=== PATIENT | female | born 1950 | race Caucasian/White ===

== ENCOUNTER 2020-04-13 12:26 | Observation (INO) | payer OTHER ==
--- OUTSIDE RECORDS SUMMARY | 2020-04-13 12:30 | XMS REPORT | Clinical Summary ---
:1950 Author Organization [facility] Address [address] [place] [address] Care Team Providers Name Role Phone Shabana Primary Care Provider Allergies No Known Active Allergies Medications Medication Sig Dispensed Refills Start Date End Date Status isosorbide Take 60 mg by mouth 0 Active mononitrate (IMDUR) every morning. 60 MG 24 hr tablet metoprolol tartrate Take 100 mg by 0 Active (LOPRESSOR) 100 mg mouth 2 (two) times tablet a day. furosemide (LASIX) 40 Take 80 mg by mouth 0 Active mg tablet 2 (two) times a day. levalbuterol Take 3 mL (1.25 mg 72 mL 2 09/27/2017 Active (XOPENEX) 1.25 mg/3 total) by mL nebulizer solution nebulization every 8 (eight) hours as needed for wheezing. digOXIN (LANOXIN) 125 Take 125 mcg by 0 Active mcg tablet mouth every other day. clonIDINE (CATAPRES) Take 0.1 mg by 0 Active 0.1 MG tablet mouth nightly. triamcinolone Apply 1 application 45 g 0 12/07/2017 Active (KENALOG) 0.1 % cream topically 2 (two) times a day. Under breast and between legs Additional Information Patient taking differently: 1 application Topical PRN, rash, Under breast and between legs, Reported on 03/28/2019 hydrALAZINE Take 100 mg by 0 Act eveline (APRESOLINE) 100 MG mouth 2 (two) tablet times a day with meals. calcitriol Take 1 capsule 90 capsule 0 06/07/19 Act eveline (ROCALTROL) 0.25 MCG by mouth every 19 capsule morning pramipexole Take 1 mg by 0 Activ e (MIRAPEX) 1 MG mouth nightly. tablet apixaban (ELIQUIS) Take 2.5 mg by 0 Active 2.5 mg tablet mouth 2 (two) times a day. insulin glulisine Inject 10 Units 0 Active (APIDRA SOLOSTAR under the skin 3 U-100 INSULIN SUBQ) (three) times a day with meals. potassium chloride Take 10 mEq by 0 Active (K-DUR) 10 MEQ CR mouth 2 (two) tablet times a day. cholecalciferol, Take 5,000 Units 0 Active vitamin D3, 1,000 by mouth daily. unit tablet melatonin 10 mg Take 10 mg by 0 Active capsule mouth daily. benzonatate Take 200 mg by 0 Act eveline (TESSALON) 100 MG mouth 3 (three) capsule times a day as needed for cough. fluticasone 2 sprays by Each 0 A ctive propionate (FLONASE) Nare route 50 mcg/actuation daily. nasal spray aspirin 81 mg Chew 1 tablet 30 tablet 0 04/07/20 05/07/20 Ac tive chewable tablet (81 mg total) 20 20 daily for 30 days. cholecalciferol, Take 5,000 Units 0 Discontinued vitamin D3, (VITAMIN by mouth every 19 D3) 1,000 unit morning. tablet melatonin 3 mg Take 3 mg by 0 04/24/20 Di scontinued tablet mouth nightly. 19 insulin degludec Inject 40 Units 0 0 Discontinued (TRESIBA U-100 under the skin 20 (Reorder) INSULIN) 100 unit/mL every morning. solution insulin degludec Inject 40 Units 0 0 Discontinued (TRESIBA U-100 under the skin 20 INSULIN SUBQ) every evening. potassium 99 mg Take by mouth 2 0 02/18/20 Discontinued (Stop tablet (two) times a 20 Taking at Discharge) day. doxycycline Take 100 mg by 0 07/04/19 07/14/19 Exp ired (MONODOX) 100 MG mouth daily. For 20 20 capsule 10 days- 5 caps left insulin degludec Inject 40 Units 1 vial 0 10/26/19 0 (Tresiba U-100 under the skin 20 20 Insulin) 100 unit/mL every evening solution for 30 days. insulin degludec Inject 40 Units 1 vial 0 10/26/19 0 (Tresiba U-100 under the skin 20 20 Insulin) 100 unit/mL every morning solution for 30 days. traMADoL (ULTRAM) 50 Take 1 tablet 20 tablet 0 01/18/2001/27 mg (50 mg total) by 20 20 tabletIndications: mouth every 6 acute pain (six) hours as needed for moderate pain for up to 10 days .acute pain. doxycycline Take 1 tablet 14 tablet 0 02/18/20 02/25/20 Expi red (VIBRA-TABS) 100 MG (100 mg total) 20 20 tablet by mouth 2 (two) times a day for 7 days. Active Problems Patient Care Coordination Note Dr. Tati Mattson Problem Noted Date Chest pain 04/06/2020 Chest pain at rest 04/05/2020 Elevated troponin 04/05/2020 Occlusion of left subclavian vein 03/25/2020 Complication of vascular access for dialysis 0 Dehydration 10/26/2019 Hypoglycemia 10/26/2019 Edema of left upper extremity 07/12/2019 Disorder of cardiac pacemaker system 07/10/2019 Anemia 07/10/2019 ESRD (end stage renal disease) 07/10/2019 Acute on chronic congestive heart failure 07/10/2019 AV fistula thrombosis, initial encounter 03/29/2019 Left-sided chest pain 03/27/2019 Altered mental status 03/04/2019 Right leg pain 01/28/2019 Hypokalemia 01/28/2019 Hypokalemia 09/16/2018 Acute renal failure 04/03/2018 Hypoglycemia 03/15/2018 Primary osteoarthritis of right knee 04/10/2017 Chronic pain of right knee 03/16/2017 AVN (avascular necrosis of bone) 03/16/2017 Swelling of right knee joint 03/16/2017 Knee instability, right 03/16/2017 Pyogenic arthritis of left shoulder region 02/11/2017 Weakness 09/30/2016 Atherosclerosis of [place] coronary artery of [place] he art without angina 08/16/2016 pectoris Type 2 diabetes mellitus with diabetic neuropathy 07/21 Chronic kidney disease 08/16/2016 Essential hypertension 08/16/2016 Mixed hyperlipidemia 08/16/2016 RLS (restless legs syndrome) 08/16/2016 Diverticulosis of large intestine without hemorrhage 0 08/16/2016 Status cardiac pacemaker 08/16/2016 Congestive heart failure 08/16/2016 Primary insomnia 08/16/2016 ART (obstructive sleep apnea) 08/16/2016 Encounters Date Type Specialty Care Team Description 04/06/2020 Orders Only Procedural [facility] 04/05/2020 - Hospital Encounter General Internal Jared Vásquez, Chest pain at rest (Primary Dx); 04/06/2020 Medicine Elevated troponin; Tati Osuna, Acute renal failure superimposed on chronic kidney disease, unspecified CKD stage, unspecified acute renal failure type ([facility]); Type 2 diabetes mellitus with diabetic neuropathy, unspecified whether terminal block assembler insulin use ([facility]); Stage 4 chronic kidney disease ([facility]); Essential hyper tension; Mixed hyperlipi demia; Status cardiac pacemaker; ART (obstructiv e sleep apnea); Edema of left u pper extremity 03/27/2020 Patient Outreach Quality Yuko Solomon RN 03/24/2020 Anesthesia Event General Surgery Nisa Barton, Bill Babcock 03/24/2020 Surgery General Surgery Ti Post, LEFT UP PER EXTREMITY ANGIOGRAM, FISTULAGRAM WIT H LIGATION OF FIS YMAIL 03/22/2020 - Hospital Encounter General Internal Maximino Rajput omplication of vascular access for dialysis, initial encounter (Primary Dx); 03/25/2020 Medicine MD Anamaria Type 2 diabetes mellitus with diabetic n europathy, unspecified whether terminal block assembler insulin use ([facility]); Tati Osuna, Stage 4 documentation analyst aldo kidney disease ([facility]); RLS (restless l egs syndrome); Status cardiac pacemaker; Edema of left u pper extremity; Complication of vascular access for dialysis, subsequent encounter; Occlusion of le ft subclavian vein ([facility]); ART (obstructiv e sleep apnea) 03/22/2020 Travel 02/27/2020 Hospital Encounter Procedural Mary Higuera Pers istent left SVC (superior vena cava); Cardiology Upper extremity pain; Left upper extr emity swelling 02/27/2020 Travel 02/27/2020 Transcribe Orders Access Mary Higuera Persi stent left SVC (superior vena cava) (Primary Dx); Upper extremity pain; Left upper extr emity swelling 02/17/2020 - Emergency General Internal Atiya Maximino Hypogly cemia (Primary Dx); 02/18/2020 Medicine MD Anamaria Weakness; Tati Osuna, Lower extrem ity edema; Edema of upper extremity; Uncontrolled ty pe 2 diabetes mellitus with hypoglycemia without coma (HCC); Diarrhea, unspe cified type; Cellulitis of l eft upper extremity; Type 2 diabetes mellitus with diabetic neuropathy, unspecified whether shelter insulin use (HCC); Stage 4 chronic kidney disease (HCC); Essential hyper tension; RLS (restless l egs syndrome); Status cardiac pacemaker; ART (obstructiv e sleep apnea); Arm edema 02/17/2020 Travel 01/17/2020 - Emergency Emergency Medicine Yobani Stephens Acute hiram n of right knee (Primary Dx); 01/18/2020 MD Oli Arthritis of k nee 10/28/2019 Patient Outreach Quality Carol Spencer RN 10/23/2019 - Hospital Encounter General Internal Wayne Banerjee MD Altered mental status, unspecified alter ed mental status type (Primary Dx); 10/26/2019 Medicine Tati Osuna, Dehydration; Chronic kidney disease, unspecified CKD stage; Hypoglycemia; Type 2 diabetes mellitus with diabetic neuropathy, unspecified whether shelter insulin use ([facility]); Stage 4 chronic kidney disease (HCC); Transient alter ation of awareness; Hypokalemia 10/23/2019 Travel 08/05/2019 Hospital Encounter Radiology Mohsen Melton Encoun ter for screening mammogram Shabana for malignant Zulema, DO neoplasm of yaniv ast 08/05/2019 Travel 07/10/2019 - Hospital Encounter General Internal Carl Altamirano Disorder of cardiac pacemaker system, initial encounter (Primary Dx); 07/12/2019 Medicine MD Stephen Acute on chronic congestive heart failur e, unspecified heart failure type (HCC); Tati Osuna, ESRD (end st age renal disease) ([facility]); Anemia, unspeci fied type; Type 2 diabetes mellitus with diabetic neuropathy, unspecified whether terminal block assembler insulin use ([facility]); Essential hyper tension 07/09/2019 Transcribe Orders Access Mohsen Melton Encount er for screening mammo gram for malignant neoplasm of yaniv ast (Primary Dx) 06/03/2019 Refill Family Medicine Anirudh Fraser MD 04/25/2019 Surgery General Surgery Nick Sims PHACOEMUL Connor MOSQUEDA MD CATARACT, WITH IOL IMPLANTATION LE FT EYE 04/25/2019 Anesthesia Event General Surgery Roula Galvan MD Mitchell, Mena Rae, MD 04/25/2019 Hospital Encounter General Surgery Nick Sims MD after 04/13/2019 Immunizations Name Administration Dates Next Due FLUCELVAX QUAD PF 03/05/2019 FLUZONE HIGH-DOSE PF 03/09/2017 Influenza Trivalent 05/21/2016 Pneumococcal Conjugate 05/21/2013 Tdap 05/21/2013 Surgical History Surgery Date Site/Laterality Comments CARPAL TUNNEL RELEASE Bilateral COLONOSCOPY 05/22/2012 - 05/21/2013 ORTHOPEDIC SURGERY Left ankle fusion CARDIAC PACEMAKER PLACEMENT twic e BACK SURGERY TOE SURGERY Right ANKLE FUSION Left HYSTERECTOMY OTHER SURGICAL HISTORY clavical bone removed due to staph inf ection CARDIAC CATHETERIZATION 09/29/2017 N/A Procedur e: CV SELECTIVE CORONARY ANGIOGR AM; Surgeon: Mary Higuera MD; Lo cation: [facility] [employer] Plow Operator I nvasive Location; Servi ce: Cardiovascular; Laterality: N/A; CREATION, AV FISTULA 04/10/2018 Left Procedure: CREATION, AV FISTULA; Surgeo n: Ti Post MD; Location: [facility] OR; Service: Vascula r; Laterality: Left ; Medical devices from this surgery are in the Implants section . CARDIAC PACEMAKER PLACEMENT CLAVICLE SURGERY Right for staph infec tion CREATION, BYPASS, ARTERIAL, 09/28/2018 Thigh/Left Proc edure: LEFT CEPHALIC FEMORAL-POPLITEAL, USING TO INTE RNAL JUGULAR GRAFT BYPASS WITH CLAUDIO T; Surgeon: Ti Post MD; Locatio n: [facility] OR; Service: Va scular; Laterality: Left ; Medical devices from this surgery are in the Implants section . PHACOEMULSIFICATION, 10/25/2018 Eye/Right Procedure: RIGHT CATARACT, WITH IOL PHACOEMULSIFI CATION, IMPLANTATION CATARACT, WITH I OL IMPLANTATION; S urgeon: Nick Sims MD; Location: [facility] OR; Service: Ophthal mology; Laterality: Righ t; Medical devices from this surgery are in the Implants section . THROMBECTOMY, AV GRAFT, WITH 03/29/2019 Arm Upper/Left Pro cedure: THROMBECTOMY, REVISION AV GRAFT, WITH R EVISION; Surgeon: Ti Post MD; Locatio n: [facility] OR; Service: Va scular; Laterality: Left ; PHACOEMULSIFICATION, 04/25/2019 Eye/Left Procedure: CATARACT, WITH IOL PHACOEMULSIFI CATION, IMPLANTATION CATARACT, WITH I OL IMPLANTATION LEF T EYE; Surgeon: Nick Sims MD; Locatio n: [facility] OR; Service : Ophthalmology; Laterality: Left ; Medical devices from this surgery are in the Implants section . THROMBECTOMY, AV GRAFT, WITH 03/24/2020 Arm Upper/Left Pro cedure: LEFT UPPER REVISION EXTREMITY ANGIOG EMANUEL, FISTULAGRAM WITH LIGATION OF FIST AYLIN; Surgeon: Ti Post MD; Locatio n: [facility] OR; Service: Va scular; Laterality: Left ; Medical History Medical History Date Comments Abnormal Pap smear of vagina Allergic CHF (congestive heart failure) (HCC) Diabetes mellitus (HCC) GERD (gastroesophageal reflux disease) Insomnia Obesity Pacemaker Hypertension Hyperlipidemia Coronary artery disease S/P ID x 2 RLS (restless legs syndrome) Diabetic neuropathy (HCC) Chronic kidney disease COPD (chronic obstructive pulmonary disease) (HCC) staph infection Sjoegren syndrome Renal insufficiency Arrhythmia a-fib Pacemaker Cataract Myocardial infarction (HCC) x3 Sleep apnea Sleep apnea, obstructive setting 5 Low potassium syndrome Arthritis RA gets infusiona Degeneration of lumbar intervertebral disc Type 2 diabetes mellitus (HCC) A-V fistula (HCC) Family History Medical History Relation Name Comments Cancer Brother Colon cancer Brother Lung cancer Brother Brain cancer Maternal Grandmother Cancer Maternal Grandmother Cancer Mother Uterine cancer Mother Breast cancer Sister Cancer Sister Relation Name Status Comments Brother Maternal Grandmother Mother Sister Social History Tobacco Use Types Packs/Day Years Used Date Never Smoker Smokeless Tobacco: Never Used Alcohol Use Drinks/Week oz/Week Comments No Alcohol Habits Answer Date Recorded How often do you have a drink containing alcohol? Never 03/22/2020 How many drinks containing alcohol do you have on a typical Not asked day when you are drinking? How often do you have six or more drinks on one occasion? Ne hugh 03/22/2020 Sex Assigned at Date Recorded Not on file Job Start Date Occupation Industry Not on file Not on file Not on file COVID-19 Exposure Response Date Recorded In the last month, have you been in contact with No / Unsure 03/22/2020 8:19 PM EVENT PLANNER someone who was confirmed or suspected to have Coronavirus / COVID-19? Last Filed Vital Signs Vital Sign Reading Time Taken Comments Blood Pressure 125/72 04/06/2020 3:51 PM EVENT PLANNER Pulse 80 04/06/2020 3:51 PM EVENT PLANNER Temperature 36.4 C (97.6 F) 04/06/2020 3:51 PM EVENT PLANNER Respiratory Rate 19 04/06/2020 3:51 PM EVENT PLANNER Oxygen Saturation 100% 04/06/2020 3:51 PM EVENT PLANNER Inhaled Oxygen Concentration - - Weight 75.8 kg (167 lb 3.2 oz) 04/05/2020 1:30 PM EVENT PLANNER Height 162.6 cm (5' 4") 04/05/2020 1:30 PM EVENT PLANNER Body Mass Index 28.7 04/05/2020 1:30 PM EVENT PLANNER Plan of Treatment Health Maintenance Due Date Last Done Comments DIABETIC FOOT EXAM 1960 COLONOSCOPY SCREENING 1998 SHINGLES VACCINES (#1) 1998 65+ PNEUMOCOCCAL VACCINE (2 of 2 - 2013 03/10/2020, 0 02/03/2016, PPSV23) 01/05/2015, Additional history exists DIABETES: RETINAL EYE EXAM 07/04/2019 07/04/2017 BREAST CANCER SCREENING 08/04/2020 08/05/2019, 07/31/2018, 07/20/2017, Additional history exists INFLUENZA VACCINE Completed 03/10/2020, 03/05/2019, 03/09/2017, Additional history exists Implants Implanted Type Area Director Informatics Device Shelf Model / Identifier Expiration Serial / Lot Date Stent Endoprosthesis Viabahn [id number] Hepbioactive W/Rm - [id number] Coronary N/A: W L GORE 05/07/2021 [id number] / Implanted: 09/19/2018 at [facility] (Quantity not on file) Stents N/A [id number] / [id number] Lens Iol Tecnis Monofocal Zcb 21.5d - [id number] Intraocular Right: [employer] 02/17/2022 [id number] / Implanted: 10/25/2018 at [facility] (Quantity not on file) L ens Implant Eye [employer] [id number] / [id number] Lens Iol Tecnis Monofocal Zcb 22.5d - [id number] Intraocular Left: [employer] 03/22/2022 [id number] / Implanted: 04/25/2019 at [facility] (Quantity not on file) L ens Implant [employer] [id number] / [id number] Pacemaker Pacemaker Stent, Other Stent, Other Description:cardiac stent Hydrometeorology Teacher Mltpl Clip Ligaclip Ligtng 20 Clips 23.8cm Ti - [id number] Surgical Implants; ETHICON ENDO [id number] / Implanted: Qty: 2 on 04/10/2018 by Ti Post M D at [facility] Expanders; SURGERY-ED / Extenders; Surgical Wires Graft Vasclr Propaten Thn-Wl Strtch Rmvb l Ringed [id number] 6mm - [id number] - [id number] Vascular Graft N/A: Vein W L GORE 12/18/ [id number] / Implanted: Qty: 1 on 09/28/2018 by Ti Post MD at [facility]OS[facility] ITAL 022 [id number] / [id number] Pacemaker Pacemaker Procedures Procedure Name Priority Date/Time Associated Comments Diagnosis POC GLUCOSE Routine 04/06/2020 3:58 Results for this PM EVENT PLANNER procedure are i n the results section. POC GLUCOSE Routine 04/06/2020 11:50 Results for this AM EVENT PLANNER procedure are i n the results section. NM MYOCARDIAL PERFUSION Routine 04/06/2020 11:28 Results for this REST STRESS 1 DAY AM EVENT PLANNER procedure are in the results section. CV STRESS TEST NUCLEAR Routine 04/06/2020 11:28 R esults for this CARDIO AM EVENT PLANNER procedure are i n the results section. POC GLUCOSE Routine 04/06/2020 6:33 Results for this AM EVENT PLANNER procedure are i n the results section. ESTIMATED GFR Routine 04/06/2020 5:06 Results fo r this AM EVENT PL[employer]NER procedure are i n the results section. THYROID STIMULATING Routine 04/06/2020 5:06 Resu lts for this HORMONE AM EVENT PL[employer]NER procedure are i n the results section. LIPID PANEL Routine 04/06/2020 5:06 Results for this AM EVENT PLANNER procedure are i n the results section. COMPREHENSIVE METABOLIC Routine 04/06/2020 5:06 Results for this PANEL AM EVENT PLANNER procedure are i n the results section. HC COMPLETE BLD COUNT Routine 04/06/2020 5:06 Re sults for this W/AUTO DIFF AM EVENT PL[employer]NER procedure are i n the results section. POC GLUCOSE Routine 04/05/2020 9:02 Results for this PM EVENT PL[employer]NER procedure are i n the results section. TROPONIN Timed 04/05/2020 7:08 Results for this PM EVENT PLANNER procedure are i n the results section. CT HEAD WO CONTRAST STAT 04/05/2020 5:01 Resu lts for this PM EVENT PL[employer]NER procedure are i n the results section. POC GLUCOSE Routine 04/05/2020 4:13 Results for this PM EVENT PL[employer]NER procedure are i n the results section. US DUPLEX VENOUS UPPER STAT 04/05/2020 3:45 R esults for this EXTREMITY LEFT PM EVENT PL[employer]NER procedure are in the results section. DIGOXIN LEVEL Routine 04/05/2020 2:30 Results fo r this PM EVENT PL[employer]NER procedure are i n the results section. TROPONIN Timed 04/05/2020 2:30 Results for this PM EVENT PL[employer]NER procedure are i n the results section. ECG 12-LEAD Routine 04/05/2020 1:42 Results for this PM EVENT PLANNER procedure are i n the results section. TTE COMPLETE, WO Today 04/05/2020 1:11 Results for this CONTRAST, W DOPPLER PM EVENT PLANNER procedur e are in ([id number]) the results section. POC GLUCOSE Routine 04/05/2020 12:01 Results for this PM EVENT PL[employer]NER procedure are i n the results section. XR CHEST 1 VW PORTABLE STAT 04/05/2020 11:20 R esults for this AM EVENT PLANNER procedure are i n the results section. LIPASE LEVEL STAT 04/05/2020 9:40 Results for this AM EVENT PLANNER procedure are i n the results section. ESTIMATED GFR STAT 04/05/2020 9:40 Results fo r this AM EVENT PLANNER procedure are i n the results section. TROPONIN STAT 04/05/2020 9:40 Results for this AM EVENT PLANNER procedure are i n the results section. MAGNESIUM LEVEL STAT 04/05/2020 9:40 Results for this AM EVENT PLANNER procedure are i n the results section. HEPATIC FUNCTION PANEL STAT 04/05/2020 9:40 R esults for this AM EVENT PL[employer]NER procedure are i n the results section. BASIC METABOLIC PANEL STAT 04/05/2020 9:40 Re sults for this AM EVENT PLANNER procedure are i n the results section. HC COMPLETE BLD COUNT STAT 04/05/2020 9:40 Re sults for this W/AUTO DIFF AM EVENT PLANNER procedure are i n the results section. ECG ED PRELIMINARY Routine 04/05/2020 9:16 Resul ts for this INTERPRETATION AM EVENT PLANNER procedure are in the results section. ECG 12-LEAD STAT 04/05/2020 9:04 Results for this AM EVENT PLANNER procedure are i n the results section. POC GLUCOSE Routine 03/25/2020 10:41 Results for this AM EVENT PL[employer]NER procedure are i n the results section. CBC HEMOGRAM Timed 03/25/2020 5:47 Results for this AM EVENT PLANNER procedure are i n the results section. ESTIMATED GFR Routine 03/25/2020 5:47 Results fo r this AM EVENT PLANNER procedure are i n the results section. BASIC METABOLIC PANEL Routine 03/25/2020 5:47 Re sults for this AM EVENT PLANNER procedure are i n the results section. POC GLUCOSE Routine 03/25/2020 5:37 Results for this AM EVENT PLANNER procedure are i n the results section. POC GLUCOSE Routine 03/24/2020 7:50 Results for this PM EVENT PL[employer]NER procedure are i n the results section. POC GLUCOSE Routine 03/24/2020 5:22 Results for this PM EVENT PLANNER procedure are i n the results section. POC GLUCOSE Routine 03/24/2020 12:19 Results for this PM EVENT PLANNER procedure are i n the results section. POC GLUCOSE Routine 03/24/2020 10:56 Results for this AM EVENT PLANNER procedure are i n the results section. OR FL < 1 HOUR Routine 03/24/2020 9:20 Results f or this AM EVENT PLANNER procedure are i n the results section. VT AN ELECTIVE Routine 03/24/2020 8:52 Results f or this SUPRAGLOTTIC AIRWAY AM EVENT PLANNER procedur e are in the results section. THROMBECTOMY, AV GRAFT, 03/24/2020 8:12 ESRD N18.6 WITH REVISION AM EVENT PLANNER TYPE AND SCREEN Routine 03/24/2020 7:20 Results for this AM EVENT PLANNER procedure are i n the results section. PARTIAL THROMBOPLASTIN STAT 03/24/2020 6:35 R esults for this TIME (PTT) AM EVENT PLANNER procedure are i n the results section. HC COMPLETE BLD COUNT Routine 03/24/2020 6:35 Re sults for this W/AUTO DIFF AM EVENT PLANNER procedure are i n the results section. ESTIMATED GFR Routine 03/24/2020 6:30 Results fo r this AM EVENT PLANNER procedure are i n the results section. COMPREHENSIVE METABOLIC Routine 03/24/2020 6:30 Results for this PANEL AM EVENT PLANNER procedure are i n the results section. POC GLUCOSE Routine 03/24/2020 5:50 Results for this AM EVENT PLANNER procedure are i n the results section. POC GLUCOSE Routine 03/23/2020 8:01 Results for this PM EVENT PLANNER procedure are i n the results section. POC GLUCOSE Routine 03/23/2020 5:31 Results for this PM EVENT PL[employer]NER procedure are i n the results section. PARTIAL THROMBOPLASTIN Routine 03/23/2020 5:00 R esults for this TIME (PTT) PM EVENT PLANNER procedure are i n the results section. PROTHROMBIN TIME WITH Routine 03/23/2020 5:00 Re sults for this INR PM EVENT PLANNER procedure are i n the results section. POC GLUCOSE Routine 03/23/2020 11:40 Results for this AM EVENT PLANNER procedure are i n the results section. POC GLUCOSE Routine 03/23/2020 8:09 Results for this AM EVENT PLANNER procedure are i n the results section. POC GLUCOSE Routine 03/23/2020 4:52 Results for this AM EVENT PLANNER procedure are i n the results section. ESTIMATED GFR Routine 03/23/2020 4:50 Results fo r this AM EVENT PL[employer]NER procedure are i n the results section. COMPREHENSIVE METABOLIC Routine 03/23/2020 4:50 Results for this PANEL AM EVENT PLANNER procedure are i n the results section. HC COMPLETE BLD COUNT Routine 03/23/2020 4:50 Re sults for this W/AUTO DIFF AM EVENT PLANNER procedure are i n the results section. COVID-19 QUALITATIVE PCR STAT 03/22/2020 10:34 Results for this PM EVENT PL[employer]NER procedure are i n the results section. ESTIMATED GFR STAT 03/22/2020 8:40 Results fo r this PM EVENT PLANNER procedure are i n the results section. COMPREHENSIVE METABOLIC STAT 03/22/2020 8:40 Results for this PANEL PM EVENT PLANNER procedure are i n the results section. HC COMPLETE BLD COUNT STAT 03/22/2020 8:40 Re sults for this W/AUTO DIFF PM EVENT PLANNER procedure are i n the results section. VT CRITICAL CARE, E/M Routine 03/22/2020 8:08 Re sults for this 30-74 MINUTES PM EVENT PLANNER procedure are in the results section. US DUPLEX VENOUS UPPER STAT 02/27/2020 11:20 Persistent lef t Results for this EXTREMITY LEFT AM CDT SVC (superior vena procedu re are in cava) the results section. POC GLUCOSE Routine 02/18/2020 1:55 Results for this PM CDT procedure are i n the results section. GRAM STAIN Routine 02/18/2020 12:06 Results for this PM CDT procedure are i n the results section. AEROBIC CULTURE Routine 02/18/2020 12:06 Results for this PM CDT procedure are i n the results section. POC GLUCOSE Routine 02/18/2020 11:52 Results for this AM CDT procedure are i n the results section. POC GLUCOSE Routine 02/18/2020 11:21 Results for this AM CDT procedure are i n the results section. POC GLUCOSE Routine 02/18/2020 9:27 Results for this AM CDT procedure are i n the results section. ECG 12-LEAD Routine 02/18/2020 5:16 Results for this AM CDT procedure are i n the results section. TROPONIN Routine 02/18/2020 5:11 Results for this AM CDT procedure are i n the results section. ECG 12-LEAD Routine 02/18/2020 4:49 Results for this AM CDT procedure are i n the results section. ESTIMATED GFR Routine 02/18/2020 4:30 Results fo r this AM CDT procedure are i n the results section. BASIC METABOLIC PANEL Routine 02/18/2020 4:30 Re sults for this AM CDT procedure are i n the results section. POC GLUCOSE Routine 02/17/2020 8:50 Results for this PM CDT procedure are i n the results section. POC GLUCOSE Routine 02/17/2020 5:24 Results for this PM CDT procedure are i n the results section. GASTROINTESTINAL PANEL Routine 02/17/2020 4:15 R esults for this PM CDT procedure are i n the results section. COVID-19 QUALITATIVE PCR STAT 02/17/2020 3:30 Results for this PM CDT procedure are i n the results section. ECG ED PRELIMINARY Routine 02/17/2020 3:18 Resul ts for this INTERPRETATION PM CDT procedure are in the results section. XR ANKLE 3+ VW LEFT STAT 02/17/2020 3:00 Resu lts for this PM CDT procedure are i n the results section. POC GLUCOSE Routine 02/17/2020 2:27 Results for this PM CDT procedure are i n the results section. ECG 12-LEAD STAT 02/17/2020 2:24 Results for this PM CDT procedure are i n the results section. US DUPLEX VENOUS UPPER STAT 02/17/2020 2:05 R esults for this EXTREMITY LEFT PM CDT procedure are in the results section. POC GLUCOSE Routine 02/17/2020 1:44 Results for this PM CDT procedure are i n the results section. US DUPLEX VENOUS LOWER STAT 02/17/2020 1:30 R esults for this EXTREMITY LEFT PM CDT procedure are in the results section. URINALYSIS SCREEN AND STAT 02/17/2020 1:13 Re sults for this MICROSCOPY, WITH REFLEX PM CDT proc edure are in TO CULTURE the results section. URINE CULTURE STAT 02/17/2020 1:13 Results fo r this PM CDT procedure are i n the results section. ESTIMATED GFR STAT 02/17/2020 12:39 Results fo r this PM CDT procedure are i n the results section. B NATRIURETIC PEPTIDE STAT 02/17/2020 12:39 Re sults for this PM CDT procedure are i n the results section. TROPONIN STAT 02/17/2020 12:39 Results for this PM CDT procedure are i n the results section. CREATINE KINASE, TOTAL STAT 02/17/2020 12:39 R esults for this (CPK) PM CDT procedure are i n the results section. LIPASE LEVEL STAT 02/17/2020 12:39 Results for this PM CDT procedure are i n the results section. COMPREHENSIVE METABOLIC STAT 02/17/2020 12:39 Results for this PANEL PM CDT procedure are i n the results section. HC COMPLETE BLD COUNT STAT 02/17/2020 12:39 Re sults for this W/AUTO DIFF PM CDT procedure are i n the results section. XR ANKLE 3+ VW RIGHT STAT 01/18/2020 12:52 Res ults for this AM CDT procedure are i n the results section. XR KNEE 4+ VW RIGHT STAT 01/18/2020 12:52 Resu lts for this AM CDT procedure are i n the results section. POC GLUCOSE Routine 10/26/2019 11:52 Results for this AM CDT procedure are i n the results section. POC GLUCOSE Routine 10/26/2019 6:51 Results for this AM CDT procedure are i n the results section. POC GLUCOSE Routine 10/26/2019 6:08 Results for this AM CDT procedure are i n the results section. POC GLUCOSE Routine 10/25/2019 8:54 Results for this PM CDT procedure are i n the results section. POC GLUCOSE Routine 10/25/2019 5:07 Results for this PM CDT procedure are i n the results section. POC GLUCOSE Routine 10/25/2019 3:55 Results for this PM CDT procedure are i n the results section. POC GLUCOSE Routine 10/25/2019 11:20 Results for this AM CDT procedure are i n the results section. POC GLUCOSE Routine 10/25/2019 6:42 Results for this AM CDT procedure are i n the results section. POC GLUCOSE Routine 10/25/2019 5:26 Results for this AM CDT procedure are i n the results section. POC GLUCOSE Routine 10/24/2019 8:12 Results for this PM CDT procedure are i n the results section. POC GLUCOSE Routine 10/24/2019 3:19 Results for this PM CDT procedure are i n the results section. POC GLUCOSE Routine 10/24/2019 11:31 Results for this AM CDT procedure are i n the results section. TTE COMPLETE, WO Routine 10/24/2019 8:37 Results for this CONTRAST, W AGITATED AM CDT procedu re are in SALINE ([id number]) the results section. POC GLUCOSE Routine 10/24/2019 6:30 Results for this AM CDT procedure are i n the results section. POC GLUCOSE Routine 10/24/2019 6:06 Results for this AM CDT procedure are i n the results section. ESTIMATED GFR Routine 10/24/2019 5:43 Results fo r this AM CDT procedure are i n the results section. COMPREHENSIVE METABOLIC Routine 10/24/2019 5:43 Results for this PANEL AM CDT procedure are i n the results section. HC COMPLETE BLD COUNT Routine 10/24/2019 5:43 Re sults for this W/AUTO DIFF AM CDT procedure are i n the results section. LIPID PANEL Routine 10/24/2019 5:43 Results for this AM CDT procedure are i n the results section. HEMOGLOBIN A1C Routine 10/23/2019 11:05 Results f or this PM CDT procedure are i n the results section. POC GLUCOSE Routine 10/23/2019 10:50 Results for this PM CDT procedure are i n the results section. POC GLUCOSE Routine 10/23/2019 10:12 Results for this PM CDT procedure are i n the results section. TROPONIN Timed 10/23/2019 10:00 Results for this PM CDT procedure are i n the results section. LACTIC ACID LEVEL, Timed 10/23/2019 10:00 Resul ts for this SEPSIS - NOW AND REPEAT PM CDT proc edure are in 2X EVERY 3 HOURS the results section. POC GLUCOSE Routine 10/23/2019 9:43 Results for this PM CDT procedure are i n the results section. CREATINE KINASE, TOTAL STAT 10/23/2019 5:29 R esults for this (CPK) PM CDT procedure are i n the results section. ESTIMATED GFR STAT 10/23/2019 5:29 Results fo r this PM CDT procedure are i n the results section. TROPONIN STAT 10/23/2019 5:29 Results for this PM CDT procedure are i n the results section. B NATRIURETIC PEPTIDE STAT 10/23/2019 5:29 Re sults for this PM CDT procedure are i n the results section. LIPASE LEVEL STAT 10/23/2019 5:29 Results for this PM CDT procedure are i n the results section. LACTIC ACID LEVEL, STAT 10/23/2019 5:29 Resul ts for this SEPSIS - NOW AND REPEAT PM CDT proc edure are in 2X EVERY 3 HOURS the results section. MAGNESIUM LEVEL STAT 10/23/2019 5:29 Results for this PM CDT procedure are i n the results section. PHOSPHORUS LEVEL STAT 10/23/2019 5:29 Results for this PM CDT procedure are i n the results section. COMPREHENSIVE METABOLIC STAT 10/23/2019 5:29 Results for this PANEL PM CDT procedure are i n the results section. PARTIAL THROMBOPLASTIN STAT 10/23/2019 5:29 R esults for this TIME (PTT) PM CDT procedure are i n the results section. PROTHROMBIN TIME WITH STAT 10/23/2019 5:29 Re sults for this INR PM CDT procedure are i n the results section. HC COMPLETE BLD COUNT STAT 10/23/2019 5:26 Re sults for this W/AUTO DIFF PM CDT procedure are i n the results section. BLOOD CULTURE, AEROBIC & Routine 10/23/2019 5:20 Results for this ANAEROBIC PM CDT procedure are i n the results section. BLOOD CULTURE, AEROBIC & Routine 10/23/2019 5:10 Results for this ANAEROBIC PM CDT procedure are i n the results section. CT HEAD WO CONTRAST STAT 10/23/2019 4:39 Resu lts for this PM CDT procedure are i n the results section. URINALYSIS SCREEN AND STAT 10/23/2019 4:30 Re sults for this MICROSCOPY, WITH REFLEX PM CDT proc edure are in TO CULTURE the results section. URINE CULTURE STAT 10/23/2019 4:30 Results fo r this PM CDT procedure are i n the results section. XR CHEST 1 VW PORTABLE STAT 10/23/2019 4:20 R esults for this PM CDT procedure are i n the results section. ECG 12-LEAD STAT 10/23/2019 4:12 Results for this PM CDT procedure are i n the results section. POC GLUCOSE Routine 10/23/2019 4:12 Results for this PM CDT procedure are i n the results section. ECG ED PRELIMINARY Routine 10/23/2019 3:53 Resul ts for this INTERPRETATION PM CDT procedure are in the results section. MAMMO SCREENING W CAD Routine 08/05/2019 11:27 Encounter for R esults for this BILATERAL AM CDT screening procedure are i n mammogram for the results malignant neoplasm section. of breast POC GLUCOSE Routine 07/12/2019 4:07 Results for this PM [facility] procedure are i n the results section. POC GLUCOSE Routine 07/12/2019 11:15 Results for this AM [facility] procedure are i n the results section. POC GLUCOSE Routine 07/12/2019 5:20 Results for this AM [facility] procedure are i n the results section. ESTIMATED GFR Routine 07/12/2019 5:05 Results fo r this AM [facility] procedure are i n the results section. BASIC METABOLIC PANEL Routine 07/12/2019 5:05 Re sults for this AM [facility] procedure are i n the results section. POC GLUCOSE Routine 07/11/2019 8:05 Results for this PM [facility] procedure are i n the results section. POC GLUCOSE Routine 07/11/2019 3:58 Results for this PM [facility] procedure are i n the results section. POC GLUCOSE Routine 07/11/2019 11:39 Results for this AM [facility] procedure are i n the results section. TTE COMPLETE, WO Routine 07/11/2019 10:24 Results for this CONTRAST, W DOPPLER AM [facility]NER procedur e are in ([id number]) the results section. POC GLUCOSE Routine 07/11/2019 6:20 Results for this AM [facility] procedure are i n the results section. ESTIMATED GFR Routine 07/11/2019 4:40 Results fo r this AM [facility] procedure are i n the results section. COMPREHENSIVE METABOLIC Routine 07/11/2019 4:40 Results for this PANEL AM [facility] procedure are i n the results section. HC COMPLETE BLD COUNT Routine 07/11/2019 4:40 Re sults for this W/AUTO DIFF AM [facility] procedure are i n the results section. POC GLUCOSE Routine 07/10/2019 9:00 Results for this PM [facility] procedure are i n the results section. US DUPLEX VENOUS UPPER Routine 07/10/2019 6:03 R esults for this EXTREMITY LEFT PM [facility] procedure are in the results section. POC GLUCOSE Routine 07/10/2019 4:49 Results for this PM [facility] procedure are i n the results section. POC GLUCOSE Routine 07/10/2019 10:46 Results for this AM [facility] procedure are i n the results section. TROPONIN Timed 07/10/2019 6:08 Results for this AM [facility]NER procedure are i n the results section. XR CHEST 1 VW PORTABLE STAT 07/10/2019 3:54 R esults for this AM [facility] procedure are i n the results section. ESTIMATED GFR STAT 07/10/2019 3:17 Results fo r this AM [facility] procedure are i n the results section. B NATRIURETIC PEPTIDE STAT 07/10/2019 3:17 Re sults for this AM [facility]NER procedure are i n the results section. TROPONIN STAT 07/10/2019 3:17 Results for this AM EVENT [facility]NER procedure are i n the results section. COMPREHENSIVE METABOLIC STAT 07/10/2019 3:17 Results for this PANEL AM [facility] procedure are i n the results section. HC COMPLETE BLD COUNT STAT 07/10/2019 3:17 Re sults for this W/AUTO DIFF AM [facility] procedure are i n the results section. ECG ED PRELIMINARY Routine 07/10/2019 3:08 Resul ts for this INTERPRETATION AM [facility] procedure are in the results section. ECG 12-LEAD STAT 07/10/2019 3:06 Results for this AM [facility] procedure are i n the results section. PHACOEMULSIFICATION, 04/25/2019 7:15 LEFT EYE AGE CATARACT, WITH IOL AM EVENT [facility]NER RELATED CATAR ACT IMPLANTATION H25.11 POC GLUCOSE Routine 04/25/2019 6:44 Results for this AM [facility] procedure are i n the results section. after 04/13/2019 Results POC glucose (04/06/2020 3:58 PM EVENT PLANNER)Only the most recent of55 resultswithin the time period is included. Pathologist Sig nature POC glucose 118 (H) 65 - 99 mg/dL [facility] Comment: [facility] County Engineer Name: Alex Montenegro Device ID: [id number] Specimen Blood Performing Organization Address [facility] Phon e Number [facility] DEPARTMENT OF PATHOLOGY AND [address] [place] [address] GENOMIC MEDICINE [facility] [address] [place], [place] [address] [facility] Cv stress test (04/06/2020 11:28 AM EVENT PLANNER) Protocol Name OTF [facility] MUSE Time in Exercise 00:01:01 H MUSE Phase Max Systolic BP 123 [facility] MUSE Max Diastolic BP 80 [facility] MUSE Max Heart Rate 82 [facility] MUSE Max Predicted Heart 149 [facility] MUSE Rate Stress Test Waveform interpreted in [facility] MUSE Impression report associated with image study. No interpretation is provided as part of this Stress ECG report.--Electronically Signed By Trino HOLLIDAY, adam ([id number]), online content editor Daysi Chapman ([id number]) on 04/06/2020 10:31:56 AM Target HR 149.00 bpm H MUSE Specimen Narrative Performed At This result has an attachment that is no t available. Performing Organization Address [facility] Phon e Number [facility] MUSE [address] [place] [address] Nm myocardial perfusion (04/06/2020 11:28 AM EVENT PLANNER) Pathologist Sig nature Target HR 149.00 bpm HM [facility] Resting HR 80 BPM [facility] Resting BP 123/80 mmHg HM [facility] Percent HR 55.03 % HM [facility] Post Peak HR 82 bpm [facility] Specimen Narrative Performed At This result has an attachment that is no t available. Study Quality: good. [facility] The study is normal. This study result indicates a low risk of cardiac d eath, or nonfatal infarction, over the ensuing year. The defect is mild in severity, small in size, loca kenneth at the apical-lateral segment(s) of the left ventricle, predo minantly fixed. Normal left ventricular systolic function. Small mild defect in the apical lateral wall, predomin antly fixed with normal wall motion. Most likely attentuation artifact from underlying gut activity. No evidence of reversible ischemia. Normal LV function and wall motion Performing Organization Address City/[facility] Phon e Number SYNGO [address] [place] [address], Estimated GFR (04/06/2020 5:06 AM EVENT PLANNER)Only the most recent of13 resultswithin the time period is included. Estimated GFR 15 (A) mL/min/1.73 [facility] Comment: m2 [facility] Units Interpretation H[facility] PITAL G1 >=90 Normal or high G2 60-89 Mildly decreased G3a 45-59 Mildly to moderately decreas ed G3b 30-44 Moderately to severely decre ased G4 15-29 Severely decreased G5 <15 Kidney failure The eGFR was calculated using the Chronic Kidney Disea se Epidemiology Collaboration (CKD-EPI) equation. Interpretation is based on recommendations of the National Kidney Foundation-Kidney Disease Outcomes Sajan lity Initiative (NKF-KDOQI) published in 2014. Specimen Plasma Performing Organization Address City/[facility] Phon e Number [facility] DEPARTMENT OF PATHOLOGY AND [address] [place] [address] GENOMIC MEDICINE [facility] [address] [address] [place], [place] [address] [facility] CBC with platelet and differential (04/06/2020 5:06 AM EVENT PLANNER)Only the most recent of10 resultswithin the time period is included. Pathologist Sig nature WBC 9.42 4.50 - 11.00 k/uL [facility] RBC 5.03 4.20 - 5.50 m/uL [facility] HGB 13.3 12.0 - 16.0 g/dL [facility] HCT 43.9 37.0 - 47.0 % [facility] MCV 87.3 82.0 - 100.0 fL [facility] MCH 26.4 (L) 27.0 - 34.0 pg [facility] MCHC 30.3 (L) 31.0 - 37.0 g/dL [facility] RDW - SD 49.5 37.0 - 55.0 fL [facility] MPV 10.2 8.8 - 13.2 fL [facility] Platelet count 416 (H) 150 - 400 k/uL [facility] Nucleated RBC 0.00 /100 WBC [facility] Neutrophils 51.8 39.0 - 69.0 % [facility] Lymphocytes 35.6 25.0 - 45.0 % [facility] Monocytes 7.2 0.0 - 10.0 % [facility] Eosinophils 4.6 0.0 - 5.0 % [facility] Basophils 0.6 0.0 - 1.0 % [facility] Specimen Plasma Performing Organization Address City/[facility] Phon e Number [facility] DEPARTMENT OF PATHOLOGY AND [id number] [place] [address] Thyroid stimulating hormone (04/06/2020 5:06 AM EVENT PLANNER) Pathologist [facility] nature TSH 2.02 0.27 - 4.20 uIU/mL [facility] [place] Specimen Plasma Performing Organization Address [facility] Phon e Number [facility] DEPARTMENT OF PATHOLOGY AND [address] [place] [place] [id number] [place] [id number] [place] [address] Lipid panel (04/06/2020 5:06 AM EVENT PLANNER)Only the most recent of2 resultswithin the time period is included. Cholesterol 159 <200 mg/dL [facility] Triglycerides 127 <150 mg/dL [facility] HDL cholesterol 63 >40 mg/dL [facility] LDL cholesterol 75Comment: Result <100 mg/dL [place] obtained by direct [facility] LDL measurement [facility] Lipid panel [facility] interpretation Comment: [facility] Total Cholesterol (mg/dL) [facility] <200 Desirable 200-239 Borderline-high >=240 High Triglycerides (mg/dL) <150 Normal 150-199 Borderline-high 200-499 High >=500 Very high HDL Cholesterol (mg/dL) <40 Low (male) <40 Low (female) LDL Cholesterol (mg/dL) <100 Optimal 100-129 Near or above optimal 130-159 Borderline-high 160-189 High >=190 Very high Risk Catergories that modify LDL goals. Risk Catergories LDL goal (mg/d L) CHD and CHD risk equivalent <100 (10-year risk >20%) Multiple (2+) risk factors <130 (10-year risk =<20%) 0-1 risk factors <160 (<10-year risk) Defining levels of lipids in metabolic syndrome Triglycerides >=150 mg/dL HDL Cholesterol Men <40 mg /dL Women <40 mg/ dL Non-HDL cholesterol is a second target for therapy in persons with high triglycerides (>=200 mg/dL) Specimen Plasma Performing Organization Address City/State/ZIP Code Phon e Number [facility] DEPARTMENT OF PATHOLOGY AND [address] [place] [address] GENOMIC MEDICINE [facility] [address] [place] [address] [facility] Comprehensive metabolic panel (04/06/2020 5:06 AM EVENT PLANNER)Only the most recent of9 resultswithin the time period is included. Sodium 138 135 - 148 [facility] mEq/L [facility] Potassium 3.4 (L) 3.5 - 5.0 [facility] mEq/L [facility] Chloride 99 98 - 112 [facility] mEq/L [facility] CO2 29 24 - 31 mEq/L [facility] Anion gap 10@ANIO 7 - 15 mEq/L [facility] BUN 42 (H) 8 - 23 mg/dL [facility] Creatinine 3.00 (H) 0.50 - 0.90 [facility] mg/dL [facility] Glucose 84Comment: 65 - 99 mg/dL [address] Calcium 9.5 8.8 - 10.2 [facility] mg/dL [facility] Protein 7.1 6.3 - 8.3 [facility] Comment: g/dL [facility] 4.6-7.0 g/dL 1 week 4.4-7.6 g/dL 7 months-1year 5.1-7.3 g/dL 1-2 years 5.6-7.5 g/dL >3 years 6.0-8.0 g/dL 18-150 6.3-8.3 g/dL Albumin 3.3 (L) 3.5 - 5.0 [facility] g/dL [facility] A/G ratio 0.9 0.7 - 3.8 [facility] Alkaline phosphatase 127 (H) 35 - 104 U/L [facility] AST 19 10 - 35 U/L [facility] ALT 12 5 - 50 U/L [facility] Total bilirubin 0.5 0.0 - 1.2 [facility] mg/dL [facility] Specimen Plasma Performing Organization Address City/[facility] Phon e Number [facility] DEPARTMENT OF PATHOLOGY AND [address] [place] [address] GENOMIC MEDICINE [facility] [address] [place], [place] [address] HOSPITAL Troponin (04/05/2020 7:08 PM EVENT PLANNER)Only the most recent of9 resultswithin the time period is included. Troponin 0.054 (H) 0.000 - 0.040 [facility] Comment: ng/mL [facility] In patients suspected of having a myocardial infarctio n, along with all other appropriate clinical measures and actions includ ing ECG and other diagnostics as appropriate, measure Ultra TnI at 0 hrs and at 3 hrs. Myocardial infarction VERY LIKELY The 0 hr TnI level is > 0.10 ng/mL Myocardial infarction LIKELY The 0 hr TnI level is > 0.04 ng/mL and 3 hr level is i ncreased or decreased by at least 0.020 ng/mL Myocardial infarction VERY UNLIKELY Both the 0 hr and 3 hr TnI levels <= 0.04 ng/mL(within normal limits) OR 0 hr is > 0.04 ng/mL and 3 hr is increased OR decreased by less than 0.020 ng/mL Specimen Plasma Performing Organization Address City/[facility] Phon e Number [facility] DEPARTMENT OF PATHOLOGY AND [address] [place] [address] GENOMIC MEDICINE [facility] [address] [place] [place] [address] [facility] CT Head Wo Contrast (04/05/2020 5:01 PM EVENT PLANNER)Only the most recent of2 results within the time period is included. Specimen Narrative Performed At EXAMINATION: CT HEAD WO CONTRAST RADIANT CLINICAL HISTORY: Fall on eliquis N V COMPARISON: CT brain dated October 22 0 TECHNIQUE: Noncontrast enhanced images of the brain we re obtained from the skull base to the vertex. Both soft tissue and bon e reconstruction algorithms were performed. CT imaging was performed with iterative reconstruction technique and/or automate d exposure control to reduce radiation dos e. FINDINGS: The brain parenchyma has no acute lesion. The castillo-whi te matter differentiation is preserved. No evidence of acute int ra or extra-axial hemorrhage, mass, mass effect or acute territorial inf arction. There is no acute hydrocephalus. Basal cisterns a re patent. Again noted are lucencies in the white matter. These m ay represent chronic small vessel changes. There are grossly stable . There are dense calcifications in the skull base vasculature again not ed in the carotid and vertebral arteries. There is mild age-related volume loss. There is no acute intracranial trauma or hemorrhage. No acute soft tissue hematoma or lacerat ion. Paranasal sinuses shows no acute air-flu id levels. Mastoid air cells are clear. No skull fractures or a ggressive bony lesions. IMPRESSION: There are involutional changes as detailed above with no acute intracranial abnormality. No change from prior exam. [id number] Procedure Note Interface, Radiology Results Incoming - 04/05/2020 5:10 PM EVENT PLANNER EXAMINATION: CT HEAD WO CONTRAST CLINICAL HISTORY: Fall on eliquis N V COMPARISON: CT brain dated October 23, 2019 TECHNIQUE: Noncontrast enhanced images o f the brain were obtained from the skull base to the vertex. Both soft tissue and bone reconstruction algorithms were performed. CT imaging was performed with iterative reconstruction technique and/or automate d exposure control to reduce radiation dos e. FINDINGS: The brain parenchyma has no acute lesion . The castillo-white matter differentiation is preserved. No evidence of acute intra or extra-axial hemorrhage, mass, mass effect or acute territorial infarction. There is no acute hydrocephalus. Basal cisterns are patent. Again noted are lucencies in the white m atter. These may represent chronic small vessel changes. There are grossly stable. There are dense calcifications in the skull base vasculature again noted in the carotid and vertebral arteries. There is mild age-related volume loss. There is no acute intracranial trauma or hemorrhage. No acute soft tissue hematoma or lacerat ion. Paranasal sinuses shows no acute air-flu id levels. Mastoid air cells are clear. No skull f ractures or aggressive bony lesions. IMPRESSION: There are involutional changes as detail ed above with no acute intracranial abnormality. No change from prior exam. [id number] Performing Organization Address [facility]/ZIP Code Phon e Number RADIANT [address] [place] [address] duplex venous upper extremity (04/05/2020 3:45 PM EVENT PLANNER)Only the most recent of4 resultswithin the time period is included. Specimen Narrative Performed At This result has an attachment that is no t available. 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 [facility]NGO Superficial venous thrombosis of the left cephalic vei n. (Clinical correlation recommended) Performing Organization Address [facility] Phon e Number SYNGO [address] [place] [address], Digoxin level (04/05/2020 2:30 PM EVENT PLANNER) Digoxin 0.4 (L) 0.8 - 2.0 ng/mL [facility] Comment: [facility] For valid Digoxin results, at least 6 hours should remington pse between time of last dose and collection of blood. Otherwise, result may be false high. Therapeutic Range: 0.8 - 2.0 ng/mL Specimen Plasma Performing Organization Address [facility] Phon e Number HMSTJ DEPARTMENT OF PATHOLOGY AND [address] [place] [address] [place] [address] [address] [place], [place] [address] [facility] ECG 12 lead (04/05/2020 1:42 PM EVENT PLANNER)Only the most recent of7 resultswithin the time period is included. Pathologist Sig nature Ventricular rate 80 [facility] Atrial rate 80 [facility] VT interval 200 [facility] QRSD interval 100 [facility] QT interval 404 [facility] QTC interval 465 [facility] P axis 1 17 [facility] QRS axis 1 -61 [facility] T wave axis 90 [facility] MUSE EKG impression Sinus rhythm with premature ventricular complexes or fusion complexes-Left axis deviation-Left ventricular hypertrophy with repolarization abnormality-Inferior infarct , age undetermined-Anterolateral i [facility] MUSE nfarct , age undetermined-Marked ST abnormality, possible anterior subendocar dial injury-Abnormal ECG-In automated comparison with ECG of 05-APR-2020 09:04,-Sinus rhythm has replaced Electronic ventricular pacemaker- Specimen Narrative Performed At This result has an attachment that is no t available. Performing Organization Address City/State/ZIP Code Phon e Number [facility] MUSE [address] [place] [address] Transthoracic Echocardiogram Complete, (w Contrast, Strain and 3D if needed) (04/05/2020 1:11 PM EVENT PLANNER) Pathologist Sig nature Velocity Ratio (V1/V2) 0.87 m/s HM SYNGO IVS,d 0.99 cm SYNGO EF 56.48 % HM [facility] LVPWD,d 1.71 cm HM [facility] AoV Mean PG 3.10 mmHg HM [facility] AV LVOT peak gradient 4.93 mmHg [facility]GO MV valve area p 1/2 method 2.66 cm2 HM [facility] LVOT Diam,S 2.01 cm HM [facility] LVOT area 3.17 cm2 HM [facility] LVOT Vmax 1.11 m/s HM [facility] LVOT VTI 0.19 m HM [facility] AoV Peak PG 6.58 mmHg HM [facility]NGO MV stenosis pressure 1/2 time 82.68 ms SYNGO LV Vol,s A2C 41.41 mL HM [facility] LV Systolic Volume Index 22.51 mL/m2 HM [facility] LV Vol,d A2C 90.97 mL HM [facility]NGO LV Diastolic Volume Index 49.44 mL/m2 HM [facility]GO BSA 1.84 m2 HM [facility] AoV Area, Vmax 2.76 cm2 HM [facility] AoV Area, VTI 3.19 cm2 HM [facility] AoV Vmax 1.28 m/s HM [facility]NGO BSA Giraldo 1.93 m2 HM [facility]NGO BSA Haycock 1.91 m2 HM [facility] IVS/LVPW,2D 0.58 HM [facility] Left Atrium Dimension Anterior 1.23 cm HM [facility]NGO LV,d 5.05 cm HM [facility]GO LV,s 3.55 cm HM [facility] LV Vol,d A4C 103.54 ml HM SYNGO LV Vol,s A4C 54.57 ml HM [facility] RVSP (TR) 15.62 mmHg HM [facility]NGO TR Vpeak 1.25 mm/s HM [facility]NGO BMI 29.70 kg/m2 HM [facility] RA pressure 10.00 mmHg HM [facility]NGO TR pk grad 5.62 mmHg HM [facility] AoV area i VTI BSA Snyder 1.74 cm2/m2 HM [facility] MR peak grad 50.11 mmHg HM SYNGO LA Vol 4C 85.00 ml HM [facility]NGO RVSP 15.62 mmHg HM [facility] AR Press Half Time 854.12 ms HM [facility] LV SYS VOL 52.73 ml HM [facility]GO LV THOMPSON VOL 121.17 ml HM SYNGO LA diam s 4.40 cm HM [facility]NGO LA area s A4C 27.74 cm2 HM [facility]GO LA Vol MOD A4C 85.05 ml HM [facility]NGO LV SI Teich 2D 37.21 ml/m2 HM [facility]GO LV SV Teich 2D 68.44 ml HM [facility]NGO LV Vol s Teich PSAX 52.73 ml HM [facility]GO LVOT SI 33.07 ml/m2 HM [facility] AoV Cusp sep 1.87 HM [facility]GO Aortic Root 3.11 cm HM [facility] AoV Vmn 0.79 HM SYNGO AR slope 1.43 HM SYNGO Ar Vmax 4.39 HM [facility] IVS s 2D 1.25 HM [facility]NGO LA Ao Ratio Mmode 1.40 HM [facility] LV FS Cube 2D 29.69 HM SYNGO LV FS Teich 2D 29.69 HM SYNGO VT End Thompson Grad 11.03 HM SYNGO VT End Diat Des 1.66 HM [facility]NGO AR maxPG 77.04 HM SYNGO D E excurs 1.60 HM [facility]NGO E f slope 0.05 HM [facility] E prime lat 0.09 HM SYNGO E keaton sept 0.05 HM SYNGO PV acc T slope 5.20 HM [facility] PV AT 117.03 msec HM [facility]NGO CONDE BP EF 51.00 % HM [facility]GO LA VOL 2C 88.00 ml HM [facility]GO AoV VTI 0.19 m HM [facility]NGO LV EF,2D 65.24 % HM [facility]NGO LV EF,A2C 54.48 % HM [facility]NGO LV EF,A4C 47.30 % HM [facility]NGO LV EF,BP 50.57 % HM SYNGO [place],d A2C 7.05 cm HM SYNGO [place],d A4C 7.18 cm HM SYNGO [place],s A2C 6.16 cm HM SYNGO [place],s A4C 6.38 cm HM SYNGO LV SV,A2C 49.56 % HM [facility]NGO LV SV,A4C 48.97 % HM [facility]GO LV SV,BP 49.42 % HM [facility]NGO LV Vol,d BP 97.74 ml HM [facility]NGO LV Vol,s BP 48.32 nl HM SYNGO LV SI MOD BP BSA Snyder 26.87 ml/m2 HM SYNGO LV Vol Index s bpmod BSA Snyder 53.14 ml/m2 HM SYNGO PV Vmn 26.27 m/s HM SYNGO MR Vmax 4.90 m/s HM [facility]NGO LVOT Vmn 0.74 HM SYNGO Pt Size 162.56 HM [facility]NGO Pt Wt 78.47 HM SYNGO Aov area Vmn 2.98 cm2 HM SYNGO LA A_P score P -5.86 HM [facility]GO LVOT mean grad 2.58 mmHg HM [facility]NGO AoV area I VMN bsa 1.62 cm2/m2 HM [facility]NGO AR DT 3,079.47 msec HM SYNGO AR pk grad 60.68 mmHg HM SYNGO IVS pct thck PLAX 26.61 % HM SYNGO LV SI Cube 2D 45.76 ml/m2 HM SYNGO LV SV Cube 2D 84.17 ml HM SYNGO LV vol d cube 2D 129.01 ml HM SYNGO LV vol s cube 2D 44.84 ml HM SYNGO LVPW pct thck PLAX 21.97 % HM SYNGO LVPW s PLAX 2.09 cm HM SYNGO Specimen Narrative Performed At This result has an attachment that is no t available. Left ventricular systolic function is normal. HM SYNGO Left Ventricular ejection fraction is 50 - 55%. Mild mitral annular calcification. Left atrium size is severely dilated. Unable to assess diastolic filling. There is kram-[id number] mitral valve regurgitatio n. Elevated LV filling pressure. Preserved LV function and wall motion Severely dilated LA with elevated filling pressure Mild to moderate MR, mild MAC Mild AI, mild VT and TR Performing Organization Address City/State/ZIP Code Phon e Number HM SYNGO [address] [place] [address], [place] XR Chest 1 Vw Portable (04/05/2020 11:20 AM EVENT PLANNER)Only the most recent of3 results within the time period is included. Specimen Narrative Performed At EXAMINATION: XR CHEST 1 VW PORTABLE [facility] CLINICAL HISTORY: chest pain COMPARISON: October 22 IMPRESSION: 1.The cardiac silhouette is mildly enlarged. Vasculatu re is within normal limits. 2.There is no confluent infiltrate, effusion, or acute osseous pathology. 3.Cardiac pacemaker is stable. [facility]-[id number] Procedure Note Hm Interface, Radiology Results Incoming - 04/05/2020 12:10 PM EVENT PLANNER EXAMINATION: XR CHEST 1 VW PORTABLE CLINICAL HISTORY: chest pain COMPARISON: October 22 IMPRESSION: 1.The cardiac silhouette is mildly enlar ged. Vasculature is within normal limits. 2.There is no confluent infiltrate, effu rosanna, or acute osseous pathology. 3.Cardiac pacemaker is stable. [facility]-[id number] Performing Organization Address City/[facility]/ZIP Code Phon e Number RADIANT [address] [place] [address] Magnesium level (04/05/2020 9:40 AM EVENT PLANNER)Only the most recent of2 resultswithin the time period is included. Pathologist Sig nature Magnesium 2.3 1.6 - 2.4 mg/dL [facility] Specimen Plasma Performing Organization Address City/[facility]/ZIP [facility] Phon e Number [facility] DEPARTMENT OF PATHOLOGY AND [address] [place] [address] [place] [place] [id number] [place] [phone] [place] [address] Lipase level (04/05/2020 9:40 AM EVENT PLANNER)Only the most recent of3 resultswithin the time period is included. Pathologist Sig nature Lipase 44 13 - 60 U/L [facility] Specimen Plasma Performing Organization Address City/[facility]/ZIP [facility] Phon e Number [facility] DEPARTMENT OF PATHOLOGY AND [address] [place] [address] [place], [place] [id number] [place] [phone] [place] [address] Hepatic function panel (04/05/2020 9:40 AM EVENT PLANNER) Albumin 3.5 3.5 - 5.0 [facility] g/dL [facility] Total bilirubin 0.6 0.0 - 1.2 [facility] mg/dL [facility] Bilirubin direct <0.1 0.0 - 0.3 [facility] mg/dL [facility] Alkaline phosphatase 140 (H) 35 - 104 U/L [facility] Protein 7.1 6.3 - 8.3 [facility] Comment: g/dL [facility] [place] 4.6-7.0 g/dL 1 week 4.4-7.6 g/dL 7 months-1year 5.1-7.3 g/dL 1-2 years 5.6-7.5 g/dL >3 years 6.0-8.0 g/dL 18-150 6.3-8.3 g/dL ALT 13 5 - 50 U/L [facility] AST 17 10 - 35 U/L [facility] Specimen Plasma Performing Organization Address [facility] Phon e Number HMSTJ DEPARTMENT OF PATHOLOGY AND [address] [place] [address] [employer] [facility] [id number] [place] [address] Basic metabolic panel (04/05/2020 9:40 AM EVENT PLANNER)Only the most recent of4 results within the time period is included. Pathologist Sig nature Sodium 133 (L) 135 - 148 mEq/L [facility] Potassium 3.5 3.5 - 5.0 mEq/L [facility] Chloride 96 (L) 98 - 112 mEq/L [facility] CO2 28 24 - 31 mEq/L [facility] Anion gap 9@ANIO 7 - 15 mEq/L [facility] BUN 35 (H) 8 - 23 mg/dL [facility] Creatinine 2.50 (H) 0.50 - 0.90 mg/dL [facility] Glucose 304 (H) 65 - 99 mg/dL [facility] Calcium 9.8 8.8 - 10.2 mg/dL [facility] Specimen Plasma Performing Organization Address [facility] Phon e Number HMSTJ DEPARTMENT OF PATHOLOGY AND [address] [place] [address] [employer] [facility] [address] ECG ED Preliminary Interpretation - Not an Order (04/05/2020 9:16 AM EVENT PLANNER)Only the most recent of4 resultswithin the time period is included. Narrative Performed At Jared Vásquez MD 04/05/2020 10 :26 AM ECG ED Preliminary Interpretation - Not an Order Performed by: Jared Vásquez MD Authorized by: Jared Vásquez MD ECG reviewed by ED Physician in the abse nce of a drywall taper: yes Previous ECG: Previous ECG: Compared to current Comparison ECG info: 02/18/20 Similarity: No change Interpretation: Interpretation: normal Rate: ECG rate: 80 ECG rate assessment: normal Rhythm: Rhythm: paced Pacing: Capture: Complete Type of pacing: Ventricular Ectopy: Ectopy: none QRS: QRS axis: Normal QRS intervals: Normal Conduction: Conduction: normal ST segments: ST segments: Normal T waves: T waves: normal CBC hemogram (03/25/2020 5:47 AM EVENT PLANNER) Pathologist Sig nature WBC 8.67 4.50 - 11.00 k/uL [facility] RBC 4.35 4.20 - 5.50 m/uL [facility] HGB 11.7 (L) 12.0 - 16.0 g/dL [facility] HCT 37.0 37.0 - 47.0 % [facility] MCV 85.1 82.0 - 100.0 fL [facility] MCH 26.9 (L) 27.0 - 34.0 pg [facility] MCHC 31.6 31.0 - 37.0 g/dL [facility] RDW - SD 47.7 37.0 - 55.0 fL [facility] MPV 9.5 8.8 - 13.2 fL [facility] Platelet count 305 150 - 400 k/uL [facility] Nucleated RBC 0.00 /100 WBC [facility] Specimen Plasma Performing Organization Address City/State/ZIP Code Phon e Number HMSTJ DEPARTMENT OF PATHOLOGY AND [address] [place] [address] GENOMIC MEDICINE [facility] [address] [place] [address] HOSPITAL [place] < 1 Hour (03/24/2020 9:20 AM EVENT PLANNER) Specimen Narrative Performed At EXAMINATION: [place] < 1 HOUR HM RADIANT C-arm fluoroscopy was requested in OR. FLUORO TIME 4:09 IMPRESSION: Intraoperative fluoroscopic images. Radiologist was no t present during the examination. Separate operative report will be issued by the physic jayden performing the procedure. [id number] Procedure Note Hm Interface, Radiology Results Incoming - 03/24/2020 10:11 AM EVENT PLANNER EXAMINATION: [place] < 1 HOUR C-arm fluoroscopy was requested in OR. FLUORO TIME 4:09 IMPRESSION: Intraoperative fluoroscopic images. Radi ologist was not present during the examination. Separate operative report will be issued by the physician performing the procedure. [id number] Performing Organization Address City/[facility] Code Phon e Number RADIANT [address] [place] [address] Airway (03/24/2020 8:52 AM EVENT PLANNER) Narrative Performed At Bill Rey 03/24/2020 8:52 AM Airway Performed by: Bill Rey Authorized by: Nisa Barton MD Location: [place] Urgency: Elective Difficult Airway: No Anesthesiologist: Nisa Barton MD Resident/LAP WINDER/AA: Bill Rey eth Performed by: resident/LAP WINDER/AA Preoxygenated with 100% O2: Yes C-spine Precautions Maintained Throughou t: Yes Mask Ventilation: Not attempted Final Airway Type: Supraglottic airway Final LMA: Unique LMA Size: 4 Number of Attempts at Approach: 1 Type and screen (03/24/2020 7:20 AM EVENT PLANNER) Pathologist Sig nature ABO grouping O [facility] Rh type POS [facility] Antibody screen (gel) NEG [facility] Specimen Plasma Performing Organization Address City/[facility]/ZIP Code Phon e Number HMSTJ DEPARTMENT OF PATHOLOGY AND [address] [place] [address] GENOMIC MEDICINE [facility] [address] [place], [place] [address] [facility] Partial thromboplastin time, activated (03/24/2020 6:35 AM EVENT PLANNER)Only the most recent of3 resultswithin the time period is included. PTT 29.0 23.0 - 36.0 [facility] Comment: [facility] PTT therapeutic range for unfractionated heparin is HOSPITAL 61.0-112.0 seconds which corresponds to Anti-Xa 0.3-0.7 U/ml. Specimen Blood Performing Organization Address City/[facility] Phon e Number [facility] DEPARTMENT OF PATHOLOGY AND [address] [place] [address] [facility] [address] Prothrombin time with INR (03/23/2020 5:00 PM EVENT PLANNER)Only the most recent of2 resultswithin the time period is included. [facility] Prothrombin time 15.8 (H) 11.5 - 14.5 [facility] INR 1.2 [facility] Comment: [facility] International Normalized Ratio (INR) is a [facility] monitoring tool for patients who are stable on oral anticoagulant therapy. An INR of 2.0-3.0 is suggested for deep vein thrombosis/pulmonary embolism. Specimen Blood Performing Organization Address [facility] Phon e Number [facility] DEPARTMENT OF PATHOLOGY AND [address] [place] [address] [facility] [id number] [place] [address] COVID-19 qualitative PCR (03/22/2020 10:34 PM EVENT PLANNER)Only the most recent of2 resultswithin the time period is included. Pathologist [facility] Interpretation Negative results do not prec lude 2019-nCoV infection and should not be used as the sole basis for treatment or other patient management decisions. Negative results must be combined with clinical observations, patient history, and epidemiological [facility] information. [facility] COVID-19 qualitative Not-Detected Not-Detecte [facility] PCR result d [facility] COVID-19 qualitative See link below for [facility] PCR PDF Lab [facility] ReportComment: Case HOSPITAL Number: [id number] Specimen Nasopharyngeal swab Performing Organization Address City/[facility] Phon e Number [facility] DEPARTMENT OF PATHOLOGY AND [address] [place], [place] [address] [facility] [address] [place] [address] [facility] CRITICAL CARE (03/22/2020 8:08 PM EVENT PLANNER) Narrative Performed At Maximino Rajput MD 03/23/2020 1 2:07 PM Critical Care Performed by: Maximino Rajput MD Authorized by: Maximino Rajput MD Critical care provider statement: Critical care time (minutes): 33 Critical care start time: 03/22/2020 9:33 PM Critical care time was exclusive of: Separately b illable procedures and treating other patients Critical care was necessary to treat or prevent imminent or life-threatening deterioration of the fo llowing conditions: Endocrine crisis Critical care was time spent personal ly by me on the following activities: Development of treatment p dori with patient or surrogate, discussions with primary provider, evalu ation of patient's response to treatment, examination of patient, obtai alisha history from patient or surrogate, re-evaluation of patient's condition, pulse oximetry, ordering and review of radiographic studies, orde ring and review of laboratory studies and ordering and performing frank tments and interventions Avery 'yes' if you are taking over critical care for this patient from another provider.: no Aerobic culture (02/18/2020 12:06 PM CDT) [facility] Aerobic culture No growth after 3 days. [facility] IST isolate Comment: HOSPITAL Specimen Information Specimen Source: Discharge Specimen Site: Foot, left Specimen Discharge - Foot, left Performing Organization Address City/[facility] Phon e Number [facility] DEPARTMENT OF PATHOLOGY AND [address] [place] [address] [phone] [address] Gram stain (02/18/2020 12:06 PM CDT) Pathologist [facility] Gram stain isolate Few WBC's [facility] No organisms seen HOSPITAL Comment: Specimen Information Specimen Source: Discharge Specimen Site: Foot, left Specimen Discharge - Foot, left Performing Organization Address City/[facility] Phon e Number [facility] DEPARTMENT OF PATHOLOGY AND [address] [place] [address] [phone] [address] Gastrointestinal panel (02/17/2020 4:15 PM CDT) Pathologist [facility] Adenovirus 40/41 PCR Not Detected [facility] Comment: [facility] Specimen Information [facility] Specimen Source: Stool Specimen Site: Nonpreserved Astrovirus PCR Not Detected [facility] Campylobacter PCR Not Detected [facility] Clostridioides difficile Not Detected [facility] Cryptosporidium PCR Not Detected [facility] Cyclospora cayetanensis Not Detected [facility] Enteroaggregative E coli Not Detected [facility] Entamoeba histolytica Not Detected [facility] Enteroinvasive E coli Not Detected [facility] Enteropathogenic E coli Not Detected [facility] Norovirus PCR Not Detected [facility] Plesiomonas shigelloides Not Detected [facility] Rotavirus PCR Not Detected [facility] Salmonella PCR Not Detected [facility] Sapovirus PCR Not Detected [facility] Enterotoxigenic E coli Not Detected [facility] Shigatoxin producing E Not Detected [facility] coli PCR [facility] E coli O157 PCR Not Reported [facility] Vibrio PCR Not Detected [facility] Vibrio cholerae PCR Not Detected [facility] Yersinia enterocolitica Not Detected [facility] Giardia lamblia PCR Not Detected [facility] Specimen Stool - Nonpreserved Performing Organization Address City/State/ZIP Code Phon e Number [facility] DEPARTMENT OF PATHOLOGY AND [address] [place] [phone] GENOMIC MEDICINE [address] [address] XR Ankle 3+ Vw Left (02/17/2020 3:00 PM CDT) Specimen Narrative Performed At [facility] EXAMINATION: XR ANKLE 3 VW LEFT CLINICAL HISTORY: edema COMPARISON: None. IMPRESSION: 1.Extensive soft tissue swelling involves the left ank le. There are postsurgical changes with arthrodesis along the tibiot alar joint space and subtalar joint space. 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 Cortical eros ions are present along the distal fibula as well as the medial malleolu s portion of the distal tibia. 2.Extensive talonavicular and midfoot arthrosis. Small vessel atherosclerotic disease. Calcaneal spur. RM-PRARSA Procedure Note Interface, Radiology Results Incoming - 02/17/2020 3:22 PM CDT EXAMINATION: XR ANKLE 3 VW LEFT CLINICAL HISTORY: edema COMPARISON: None. IMPRESSION: 1.Extensive soft tissue swelling involve s the left ankle. There are postsurgical changes with arthrodesis along the tibiotalar joint space and subtalar joint space. 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 Cortical erosions are present along the distal fibula as well as the medial malleolus portion of the distal tibia. 2.Extensive talonavicular and midfoot ar throsis. Small vessel atherosclerotic disease. Calcaneal spur. HMRM-PRARSA Performing Organization Address City/State/ZIP Code Phon e Number [facility] [address] [place] [address] Us duplex venous lower extremity (02/17/2020 1:30 PM CDT) Specimen Narrative Performed At This result has an attachment that is no t available. Left lower extremity and right groin only venous duplex ultrasound does [facility] not show evidence of venous thrombosis in the visualiz ed veins. Valvular reflux is noted in the left distal popliteal vein. Valvular reflux is noted in the right common femoral v ein. Lymph node is noted in the left groin. Left lower extremity soft tissue edema is appreciated. Performing Organization Address City/[facility]/ZIP Code Phon e Number SYNGO [address] [place] [address], [place] Urinalysis screen and microscopy, with reflex to culture (02/17/2020 1:13 PM CDT)Only the most recent of2 resultswithin the time period is included. Specimen site Clean catch [facility] Color, UA Yellow [facility] Appearance, UA Slightly-Cloudy [facility] Specific gravity, 1.008 1.001 - 1.035 [facility] pH, UA 5.0 5.0 - 8.5 [facility] Protein, UA 1+ (A) Negative [facility] Glucose, UA Negative Negative [facility] Ketones, UA Negative Negative [facility] Bilirubin, UA Negative Negative [facility] Blood, UA Negative Negative [facility] Nitrite, UA Negative Negative [facility] Urobilinogen, UA Negative <2.0 [facility] Leukocyte esterase, Negative Negative [facility] Epithelial cells, Many Few /HPF [facility] WBC, UA 0-5 0 - 4 /HPF [facility] RBC, UA 0-5 0 - 5 /HPF [facility] Bacteria, UA Few None seen [facility] Yeast, UA None seen [facility] Yeast with None seen [facility] pseudohyphae, UA [facility] Hyaline casts, UA 3-5 /LPF [facility] Specimen Urine Performing Organization Address [facility] Phon e Number [facility] DEPARTMENT OF PATHOLOGY AND [address] [place] [address] Urine culture (02/17/2020 1:13 PM CDT)Only the most recent of2 resultswithin the time period is included. Pathologist Sig nature Urine culture SEE COMMENTComment: [facility] Bacteriuria screen [facility] negative. Specimen Urine Performing Organization Address [facility] Phon e Number [facility] DEPARTMENT OF PATHOLOGY AND [address] [place] [address] B natriuretic peptide (02/17/2020 12:39 PM CDT)Only the most recent of3 results within the time period is included. Pathologist Sig nature BNP 278 (H) 0 - 100 pg/mL [facility] Specimen Blood Performing Organization Address City/[facility] Phon e Number [facility] DEPARTMENT OF PATHOLOGY AND [address] [place] [address] Creatine kinase, total (CPK) (02/17/2020 12:39 PM CDT)Only the most recent of2 resultswithin the time period is included. Pathologist Sig nature Creatine kinase 92 26 - 192 U/L [facility] Specimen Blood Performing Organization Address City/[facility] Phon e Number [facility] DEPARTMENT OF PATHOLOGY AND [address] [place] [address] XR Ankle 3+ Vw Right (01/18/2020 12:52 AM CDT) Specimen Narrative Performed At EXAM: XR ANKLE 3 VW RIGHT [facility] CLINICAL HISTORY: right ankle pain COMPARISON: None. IMPRESSION: Moderate soft tissue swelling surrounding the ankle, n onspecific and may be posttraumatic or infectious/inflammatory. Vascular calcifications are noted. Soft tissues are otherwise normal . Background of diffuse osseous demineralization. Taking this into consideration, no radiographic evidence of acute displ aced right ankle fracture or dislocation. Ankle mortise is intact. Plan tar calcaneal spur noted. Pes planus partially visualized. [id number] Procedure Note Interface, Radiology Results Incoming - 01/18/2020 1:04 AM CDT EXAM: XR ANKLE 3 VW RIGHT CLINICAL HISTORY: right ankle pain COMPARISON: None. IMPRESSION: Moderate soft tissue swelling surroundin g the ankle, nonspecific and may be posttraumatic or infectious/inflammatory. Vascular calcifications are noted. Soft tissues are otherwise normal. Background of diffuse osseous deminerali zation. Taking this into consideration, no radiographic evidence of acute displaced right ankle fracture or dislocation. Ankle mortise is intact. Plantar calcaneal spur noted. Pes planus partially visualized. [id number] Performing Organization Address City/State/ZIP Code Phon e Number [facility] [address] [place] [address] XR Knee 4+ Vw Right (01/18/2020 12:52 AM CDT) Specimen Narrative Performed At Examination: XR KNEE 4 VW RIGHT [facility] Clinical History: right knee pain - hx o f RA Comparison: None. Findings: 4 views of the right knee are obtained. There is moder ate to severe joint space narrowing of the medial compartment of the right knee with spurring. Patella spurring is also noted. Suprapatella r joint effusion is seen. No acute fracture is seen. IMPRESSION: 1. Moderate to severe degenerative joint disease of th e right knee with suprapatellar joint effusion but no acut e bony abnormality identified. [id number] Procedure Note Interface, Radiology Results Incoming - 01/18/2020 12:58 AM CDT Examination: XR KNEE 4 VW RIGHT Clinical History: right knee pain - hx o f RA Comparison: None. Findings: 4 views of the right knee are obtained. There is moderate to severe joint space narrowing of the medial compartment of the right knee with spurring. Patella spurring is also noted. Suprapatellar joint effusion is seen. No acute fracture is seen. IMPRESSION: 1. Moderate to severe degenerative joint disease of the right knee with suprapatellar joint effusion but no acute bony abnormality identified. [id number] Performing Organization Address City/State/ZIP Code Phon e Number [facility] [address] [place] [address] Transthoracic Echocardiogram Complete, (w Contrast, Strain and 3D if needed) (10/24/2019 8:37 AM CDT) Pathologist Sig nature AoV Area, Vmax 1.87 cm2 [facility] AoV Area, VTI 1.96 cm2 [facility] AoV Mean PG 5.96 mmHg [facility] AoV Peak PG 11.87 mmHg [facility] AoV Vmax 1.72 m/s [facility] AoV VTI 0.30 m [facility] IVS,d 0.83 cm [facility] LV,d 6.14 cm [facility] LV EF,A2C 61.49 % [facility] LV EF,A4C 55.95 % [facility] LV EF,BP 56.79 % [facility] [place],d A2C 7.05 cm [facility] [place],d A4C 7.29 cm [facility] [place],s A2C 5.56 cm [facility] [place],s A4C 6.28 cm [facility] LV,s 4.54 cm [facility] LV SV,A2C 60.23 % [facility] LV SV,A4C 63.83 % [facility] LV Vol,d A2C 97.94 mL [facility] LV Vol,d A4C 114.10 ml [facility] LV Vol,d BP 106.96 ml [facility] LV Vol,s A2C 37.71 mL [facility] LV Vol,s A4C 50.27 ml [facility] LV Vol,s BP 46.22 nl [facility] LVOT Diam,S 1.98 cm [facility] LVOT Vmax 1.04 m/s [facility] LVOT VTI 0.19 m [facility] LVPWD,d 0.81 cm [facility] TR Vpeak 2.48 mm/s [facility] AR Press Half Time 395.19 ms [facility] MV E A ratio 2.93 [facility] TR pk grad 18 mmHg [facility] MR Vmax 5.07 m/s [facility] MR peak grad 95.04 mmHg [facility] E wave decelartion time 191.39 msec [facility] MV Peak A Des 0.40 m/s [facility] MV valve area p 1/2 method 5.28 cm2 [facility] MV Peak E Des 1.18 m/s [facility] MV stenosis pressure 1/2 time 41.68 ms [facility] AV LVOT peak gradient 4.35 mmHg [facility] LV SYS VOL 94.52 ml [facility] LV THOMPSON VOL 189.76 ml [facility] LV SV Teich 2D 95.24 ml [facility] LVOT SI 31.94 ml/m2 [facility] AoV Cusp sep 1.65 [facility] AoV Vmn 1.13 [facility] IVS s 2D 1.43 [facility] AR slope 2.38 [facility] Ar Vmax 3.25 [facility] LA Ao Ratio Mmode 1.79 [facility] LVOT Vmn 0.69 [facility] Pt Size 162.56 [facility] Pt Wt 81.65 [facility] Ao root annulus 3.08 cm [facility] PV AT 114.19 msec [facility] LVOT mean grad 2.20 mmHg [facility] AR DT 1,362.71 msec [facility] AR pk grad 42.13 mmHg [facility] LVPW s PLAX 1.40 cm [facility] MV Decel slope 6.18 m/s2 [facility] LA Vol MOD A4C 61.46 ml [facility] Velocity Ratio (V1/V2) 0.60 m/s [facility] EF 50.19 % [facility] E/A ratio 2.95 [facility] LVOT area 3.08 cm2 [facility] RVSP (TR) 23.42 mmHg [facility] RA pressure 5.00 mmHg [facility] LA Vol 4C 61.00 ml [facility] RVSP 23.42 mmHg [facility] LA diam s 5.50 cm [facility] Aortic Root 3.10 cm [facility] VT End Thompson Grad 3.56 [facility] VT End Diat Des 0.94 [facility] AR maxPG 42.13 [facility] D E excurs 1.30 [facility] E f slope 0.08 [facility] E prime lat 0.08 [facility] E [place] sept 0.08 [facility] PV acc T slope 5.40 [facility] CONDE BP EF 57.00 % [facility] LA VOL 2C 81.00 ml [facility] Specimen Narrative Performed At This result has an attachment that is no t available. BUBBLE STUDY PERFORMED. [facility] Left ventricular systolic function is normal. Left Ventricular ejection fraction is 50 - 55%. Left atrium size is moderately dilated. Unable to assess diastolic filling. Saline contrast study was negative for PFO Performing Organization Address City/State/ZIP Code Phon e Number [facility] [address] [place] [address], Hemoglobin A1c (10/23/2019 11:05 PM CDT) Hemoglobin A1C 9.8 (H) 4.0 - 5.6 % [facility] Comment: [place] HbA1c cutoffs for diagnosing diabetes: HO SPITAL 4.0% - 5.6% = normal 5.7% - 6.4% = increased risk for diabetes (prediabetes )9 >=6.5% = diabetes9 Goals for glycemic control (ADA 2016) < 7.0% Target for non adults with diabetes. More or less stringent targets may be appropriate for individual patients. <7.5% Target for Children and adolescents with type 1 diabetes. Specimen Blood Performing Organization Address [facility] Phon e Number [facility] DEPARTMENT OF PATHOLOGY AND [address] [place] [address] Lactic acid level, SEPSIS - Now and repeat 2x every 3 hours (10/23/2019 10:00 PM CDT)Only the most recent of2 resultswithin the time period is included. Pathologist Sig [facility] Lactic acid 1.1 0.5 - 2.2 mmol/L [facility] Specimen Blood Performing Organization Address [facility] Phon e Number [facility] DEPARTMENT OF PATHOLOGY AND [address] [place] [address] [place] [id number] [facility] Phosphorus level (10/23/2019 5:29 PM CDT) Pathologist Sig nature Phosphorus 5.3 (H) 2.4 - 4.5 mg/dL [facility] Specimen Blood Performing Organization Address [facility]/ZIP [facility] Phon e Number [facility] DEPARTMENT OF PATHOLOGY AND [address] [place] [address] [place] [id number] [facility] [id number] [place] [address] [place] [id number] [facility] Blood culture, aerobic & anaerobic (10/23/2019 5:20 PM CDT)Only the most recent of2 resultswithin the time period is included. Blood culture No growth after 5 days of incubation. HO NILO DRUZE isolate Comment: HOSPITAL Specimen Information Specimen Source: Blood Specimen Site: Antecubital, right Specimen Blood - Antecubital, right Performing Organization Address City/[facility]/ZIP [facility] Phon e Number [facility] DEPARTMENT OF PATHOLOGY AND [address] [place], [place] [address] [facility] [address] [place] [address] Mammo Screening w Cad Bilateral (08/05/2019 11:27 AM CDT) Specimen Narrative Performed At PROCEDURE: MAMMO SCREENING W CAD BILATER AL 08/05/2019 11:10 AM [facility] This patient's mammogram was interpreted with the assi stance of computer-aided detection (CAD). CLINICAL HISTORY: 68 -year-old female referred for scr eening mammogram. She has no new or current breast compl aints. FAMILY HISTORY: Family history of breast carcinoma d iagnosed in patient's sister at age 70. COMPARISON: 07/31/2018, 07/20/2017, 2016, 06/04/2015. BREAST DENSITY: There are scattered ar eas of fibroglandular density. DIGITAL SCREENING MAMMOGRAPHY FINDINGS: There are no dominant masses, suspicious microcalcific ations or unexplained architectural distortion to suggest malign liz. Cardiac device overlies the left axilla. No interval suspiciou s mammographic change. IMPRESSION: BI-RADS Category 2-Benign. RECOMMENDATION: Comparison with physical examination and annual mammography. This facility is accredited by [employer] for Mammography. A negative x-ray report should not delay biopsy if a d ominant or clinically suspicious mass is present. Not all cancers are identified by x-ray. [id number] Performing Organization Address City/State/ZIP Code Phon e Number [facility] [address] [place] [address] Echocardiogram complete w contrast and 3D if needed (07/11/2019 10:24 AM EVENT PLANNER) Pathologist Sig nature AoV Area, Vmax 1.73 cm2 [facility] AoV Area, VTI 1.91 cm2 [facility] AoV Mean PG 4.85 mmHg [facility] AoV Peak PG 8.22 mmHg [facility] AoV Vmax 1.43 m/s [facility] AoV VTI 0.22 m [facility] IVS,d 1.10 cm [facility] LV,d 4.86 cm [facility] LV EF,A2C 59.64 % [facility] LV EF,A4C 66.07 % [facility] LV EF,BP 64.79 % [facility] [place],d A2C 7.41 cm [facility] [place],d A4C 6.65 cm [facility] [place],s A2C 6.28 cm [facility] [place],s A4C 6.30 cm [facility] LV,s 3.19 cm [facility] LV SV,A2C 45.48 % [facility] LV SV,A4C 74.07 % [facility] LV Vol,d A2C 76.26 mL [facility] LV Vol,d A4C 112.10 ml [facility] LV Vol,d BP 97.19 ml [facility] LV Vol,s A2C 30.78 mL [facility] LV Vol,s A4C 38.04 ml [facility] LV Vol,s BP 34.22 nl [facility] LVOT Diam,S 1.85 cm [facility] LVOT Vmax 0.93 m/s [facility] LVOT VTI 0.16 m [facility] LVPWD,d 1.08 cm [facility] TR Vpeak 2.90 mm/s [facility] AR Press Half Time 723.19 ms [facility] TR pk grad 33.67 mmHg [facility] MR Vmax 5.49 m/s [facility] MR peak grad 90.92 mmHg [facility] MV valve area p 1/2 method 3.13 cm2 [facility] MV stenosis pressure 1/2 time 70.38 ms [facility] AV LVOT peak gradient 3.43 mmHg [facility] LV SYS VOL 40.59 ml [facility] LV THOMPSON VOL 110.66 ml HM [facility] LA area s A4C 29.78 cm2 [facility] LV SV Teich 2D 70.07 ml [facility] LVOT SI 22.69 ml/m2 [facility] AoV Cusp sep 0.95 [facility] AoV Vmn 1.05 [facility] IVS s 2D 1.71 [facility] AR slope 1.59 [facility] Ar Vmax 3.97 [facility] LA Ao Ratio Mmode 1.61 [facility] LVOT Vmn 0.63 [facility] Pt Size 162.56 [facility] Pt Wt 78.47 [facility] PV AT 85.63 msec [facility] LVOT mean grad 1.78 mmHg [facility] AR DT 2,493.75 msec [facility] AR pk grad 63.10 mmHg [facility] LVPW s PLAX 1.75 cm [facility] LA Vol MOD A4C 91.96 ml [facility] Velocity Ratio (V1/V2) 0.65 m/s [facility] EF 63.32 % [facility] LVOT area 2.69 cm2 [facility] LA Volume Index 58.15 mL/m2 [facility] RA pressure 5.00 mmHg [facility] LA Vol 4C 92.00 ml [facility] RVSP 38.67 mmHg HM [facility] LA diam s 4.90 cm [facility] Aortic Root 3.06 cm [facility] VT End Thompson Grad 6.08 [facility] VT End Diat Des 1.23 [facility] AR maxPG 63.10 [facility] D E excurs 1.40 [facility] E f slope 0.09 [facility] PV acc T slope 8.00 [facility] CONDE BP EF 65.00 % [facility] LA VOL 2C 102.00 ml [facility] Specimen Narrative Performed At This result has an attachment that is no t available. Left ventricular systolic function is normal. [facility] Left Ventricular ejection fraction is 60 - 65%. Left atrium size is moderately dilated. Unable to assess diastolic filling. Performing Organization Address City/State/ZIP Code Phon e Number [facility] [address] [place] [address], after 04/13/2019 Advance Directives For more information, please contact: [phone] Type Date Recorded Patient Risk Control Specialist Explanati on Advance Directives, Living Will 02/11/2019 11:06 AM and Medical Power of Maintenance Mechanic Code Status Date Activated Date Inactivated Comments Full Code 04/05/2020 1:30 PM 04/06/2020 11:17 PM Code Status decision reached by: Patient Full Code 03/22/2020 11:51 PM 03/25/2020 5:26 PM Code Status decision reached by: Patient Full Code 10/23/2019 9:09 PM 10/26/2019 9:48 PM Code Status decision reached by: Patient Full Code 07/10/2019 6:41 AM 07/12/2019 10:47 PM Code Status decision reached by: Patient Full Code 03/28/2019 1:24 AM 03/30/2019 10:51 PM Code Status decision reached by: Patient
--- OUTSIDE RECORDS SUMMARY | 2020-04-13 12:32 | XMS REPORT | Continuity of Care Document ---
:1950 Author Organization [facility] t Address [address] [place] [address] Dr. [address]son [address] [place] [address] Care Team Providers Name Role Phone Vanda PALOMO Primary Care Physician Pan Vásquez MD Attending Clinician Thao HOLLIDAY Attending Clinician Adela Attending Clinician Unavailable Neha PETE Attending Clinician Unavailable Anamaria Rajput MD Attending Clinician Lesley Barton MD Attending Clinician Sakshi Rey Attending Clinician Sincere HOLLIDAY, Rosario Attending Clinician Jose Tripathi MD Attending Clinician Oli Stephens MD Attending Clinician Tj PETE Attending Clinician Unavailable Chriss HOLLIDAY Attending Clinician Benjamin Melton MD Attending Clinician Vanda PALOMO Attending Clinician Stephen Altamirano MD Attending Clinician Avery Fraser MD Attending Clinician Connor Sims MD Attending Clinician Vianca Galvan MD Attending Clinician TEQWIMUAH Attending Clinician Unavailable THAO Admitting Clinician Unavailable TEQWCHARLES Admitting Clinician Unavailable Payers Payer Name Policy Type Policy Number Effective Date Expiration Date S ource [id number] [place] [id number] 00:00:00 Religious /2003-Presen tMilitary Problems Condition Condition Condition Status Onset Resolution Last Treating Co mments Source Name Details Category Date Date Treatment Clinician Date Chest pain Chest pain Disease Active 2020-1 [place] 1-16 [facility]: st 00 Chest pain Chest pain Disease Active 2020- [facility] [place] at rest at rest 1-15 Methodi 00:00: st 00 Elevated Elevated Disease Active 2020- [place] troponin troponin -15 Method i 00:00: st 00 Occlusion Occlusion Disease Active 2019- Jackie ston of left of left 04 [facility] subclavian subclavian 00:00: st vein vein 00 Complicati Complicati Disease Active 2020-1 [place] on of on of 05-22 [facility] vascular vascular 00:00: st access for access for 00 dialysis dialysis Dehydratio Dehydratio Disease Active 2020-0 [facility] n n 6-06 Methodi 00:00: st 00 Hypoglycem Hypoglycem Disease Active 2020-0 H [facility] ia ia 6-06 Methodi 00:00: st 00 Edema of Edema of Disease Active 2020-0 [place] left upper left upper 2-21 [facility] extremity extremity 00:00: st 00 Disorder Disorder Disease Active 2020-0 [place] of cardiac of cardiac 2-19 [facility] [place] pacemaker pacemaker 00:00: st system system 00 Anemia Anemia Disease Active 2020-0 [place] 2-19 [facility]i 00:00: st 00 ESRD (end ESRD (end Disease Active 2020-0 Jackie ston stage stage 2-19 [facility] renal renal 00:00: st disease) disease) 00 Acute on Acute on Disease Active 2020-0 [place] chronic chronic 2-19 [facility] congestive congestive 00:00: st heart heart 00 failure failure 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 1-08 [facility] , initial , initial 00:00: st encounter encounter 00 Left-sided Left-sided Disease Active 2019- [facility] [place] chest pain chest pain 1-06 Dc thodi 00:00: st 00 Altered Altered Disease Active 2018-05 [place] mental mental 0-14 [facility] status status 00:00: st 00 Right leg Right leg Disease Active 2019- Jackie ston pain pain 9-09 Methodi 00:00: st 00 Hypokalemi Hypokalemi Disease Active [place] a a 9 Methodi 00:00: st 00 Hypokalemi Hypokalemi Disease Active [place] a a 4- Methodi 00:00: st 00 Acute Acute Disease Active 2017-05 [place] renal renal 1-13 [facility] failure failure 00:00: st 00 Hypoglycem Hypoglycem Disease Active 2017-05 [facility] [place] ia ia 0-25 Methodi 00:00: st 00 Primary Primary Disease Active 2016-05 [place] osteoarthr osteoarthr 1-20 Me [facility] itis of itis of 00:00: st right knee right knee 00 Chronic Chronic Disease Active 2016-05 [place] pain of pain of 0-26 [facility] right knee right knee 00:00: st 00 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 [place] (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 Me [facility] necrosis necrosis 00:00: st of bone) of bone) 00 Swelling Swelling Disease Active 2016-05 [place] of right of right 0-26 Method i knee joint knee joint 00:00: st 00 Knee Knee Disease Active 2016-05 [place] instabilit instabilit 0-26 Me [facility] y, right y, right 00:00: st 00 Pyogenic Pyogenic Disease Active [place] arthritis arthritis 9-23 Meth ramiro of left of left 00:00: st shoulder shoulder 00 region region Weakness Weakness Disease Active [place] 5-12 [facility] 00:00: st 00 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 08-16 Method i viejas viejas 00:00: st coronary coronary 00 artery of artery of viejas viejas heart heart without without angina angina pectoris pectoris 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 00:00: st 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 Chronic Chronic Disease Active [place] kidney kidney - [facility] disease disease 00:00: st 00 Essential Essential Disease Active [facility] st[facility] hypertensi hypertensi 3-28 Me [facility] on on 00:00: st 00 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 3-28 Me thodi emia emia 00:00: st 00 RLS RLS Disease Active [place] (restless (restless 08-16 Meth rami[facility] legs legs 00:00: st syndrome) syndrome) 00 Diverticul Diverticul [facility]-16 [facility] large large 00:00: st intestine intestine 00 without without hemorrhage hemorrhage Status Status Disease Active [place] cardiac cardiac 08-16 [facility] pacemaker pacemaker 00:00: st 00 Congestive Congestive Disease Active [place] heart heart 08-16 [facility] failure failure 00:00: st 00 Primary Primary Disease Active [place] insomnia insomnia 08-16 Method i 00:00: st 00 ART ART Disease Active [facility] (obstructi (obstructi 08-16 Me thodi ve sleep ve sleep 00:00: st apnea) apnea) 00 Allergies, Adverse Reactions, Alerts This patient has no known allergies or adverse reactions. Family History Family Member Diagnosis Comments Start Date Stop Date Source Natural brother Cancer [facility] ethodist Natural brother Colon cancer [place] Religious Natural brother Lung cancer [place] Religious Maternal grandmother [facility] Maternal grandmother Cancer [place] Religious Natural mother Cancer [facility] thodist Natural mother Uterine cancer [place] Religious Natural sister Breast cancer [place] Religious Natural sister Cancer [facility] thodist Social History Social Habit Start Date Stop Date Quantity Comments Source History [facility] Meth odist Alcohol Std Drinks Sex Assigned At [facility] ethodist Exposure to Not sure [place] Metho dist SARS-CoV-2 (event) Tobacco use and 2020-04-05 2020-04-05 Never used [facility] ethodist exposure 00:00:00 00:00:00 Alcohol intake 2020-04-05 2020-04-05 Current [facility] thodist 00:00:00 00:00:00 non-drinker of alcohol (finding) History [facility] 2020-03-22 2020-03-22 1 [place] Meth odist Alcohol Frequency 00:00:00 00:00:00 History [facility] 2020-03-22 2020-03-22 1 [place] Meth odist Alcohol Binge 00:00:00 00:00:00 Smoking Status Start Date Stop Date Source Never smoker [place] Methodis t Medications Ordered Filled Start Stop Current Ordering Indication Dosage Frequency Signature Comments Components Source Medication Medication Date Date Medication? Clinician (SIG) Name Name aspirin 81 2020-1 2020- Yes 81mg QD Chew 1 [place] mg chewable 1-17 12-17 tablet (81 M ethodi tablet 00:00: 23:59 mg total) st 00 :00 daily for 30 days. isosorbide 2020- Yes 60mg QD Take 60 mg [place] mononitrate 1-16 by mouth Meth ramiro (IMDUR) 60 19:17: every st MG 24 hr 47 morning. tablet metoprolol 2020- Yes 100mg Q.5D Take 100 [place] tartrate 1-16 mg by Methodi (LOPRESSOR) 19:17: mouth 2 st 100 mg 47 (two) tablet times a day. furosemide 2020- Yes 80mg Q.5D Take 80 mg [place] (LASIX) 40 1-16 by mouth 2 Met hodi mg tablet 19:17: (two) st 47 times a day. digOXIN 2020- Yes 125ug Q48H Take 125 [place] (LANOXIN) 1-16 mcg by Methodi 125 mcg 19:17: mouth st tablet 47 every other day. clonIDINE 2019- Yes .1mg QD Take 0.1 [place] (CATAPRES) 1-16 mg by Methodi 0.1 MG 19:17: mouth st tablet 47 nightly. hydrALAZINE 2019- Yes 100mg Q.5D Take 100 [place] (APRESOLINE 1-16 mg by Methodi ) 100 MG 19:17: mouth 2 st tablet 47 (two) times a day with meals. pramipexole 2019- Yes 1mg QD Take 1 mg [place] (MIRAPEX) 1 -16 by mouth Meth ramiro MG tablet 19:17: nightly. st 47 apixaban 2019- Yes 2.5mg Q.5D Take 2.5 [place] (ELIQUIS) 1-16 mg by Methodi 2.5 mg 19:17: mouth 2 st tablet 47 (two) times a day. insulin 2020- Yes 10U Q.[id number] Inject 10 Dye glulisine 1-16 [id number] Units Met [facility] (APIDRA 19:17: 3D under the st SOLOSTAR 47 skin 3 U-100 (three) INSULIN times a SUBQ) day with meals. potassium 2020- Yes 10meq Q.5D Take 10 [place] chloride 1-16 mEq by Methodi (K-DUR) 10 19:17: mouth 2 st MEQ CR 47 (two) tablet times a day. cholecalcif 2019-05 Yes 5000U QD Take 5,000 Dye sophia, 1-16 Units by Methodi vitamin D3, 19:17: mouth st 1,000 unit 47 daily. tablet melatonin 2019-05 Yes 10mg QD Take 10 mg [place] 10 mg 1-16 by mouth [facility] capsule 19:17: daily. st 47 benzonatate 2019-05 Yes 200mg Q.[id number] Take 200 Dye (TESSALON) 1-16 [id number] mg by Me thodi 100 MG 19:17: 3D mouth 3 st capsule 47 (three) times a day as needed for cough. fluticasone 2019-05 Yes 2{spray QD 2 sprays Dye propionate 1-16 } by Each Method i (FLONASE) 19:17: Nare route st 50 47 daily. mcg/actuati on nasal spray potassium 2019-0 2020- No Q.5D Take by [place] 99 mg 02-17 mouth 2 Methodi tablet 15:27: 00:00 (two) st 03 :00 times a day. doxycycline 2019-0 2020- No 100mg Q.5D Take 1 [place] (VIBRA-TABS 02-17 tablet Metho di ) 100 MG 00:00: 23:59 ([address] tablet 00 :00 total) by mouth 2 (two) times a day for 7 days. traMADoL 2019- 2020- No acute pain 50mg Q6H Take 1 Dye (ULTRAM) 50 01-17- tablet (50 M ethodi mg tablet 00:00: 23:59 mg total) st 00 :00 by mouth every 6 (six) hours as needed for moderate pain for up to 10 days .acute pain. insulin 2019-0 2020- No 40U QD Inject 40 [place] degludec 6- 06-06 Units Methodi (TRESIBA 16:06: 00:[address] U-100 02 :00 skin every INSULIN) morning. 100 unit/mL solution insulin 2019-0 2020- No 40U QD Inject 40 [place] degludec 6-06 06-06 Units Methodi (TRESIBA 16:06: 00:[address] U-100 02 :00 skin every INSULIN evening. SUBQ) insulin 2019- No 40U QD Inject 40 [place] degludec 6-06 07-06 Units Methodi (Tresiba 00:00: 23:[address] U-100 00 :00 skin every Insulin) evening 100 unit/mL for 30 solution days. insulin 2019- No 40U QD Inject 40 [place] degludec 6-06 07-06 Units Methodi (Tresiba 00:00: 23:[address] U-100 00 :00 skin every Insulin) morning 100 unit/mL for 30 solution days. doxycycline 100mg QD Take 100 Dye (MONODOX) 2-13 02-23 mg by Methodi 100 MG 00:00: 23:[address] capsule 00 :00 daily. For 10 days- 5 caps left melatonin 3 2018-05 3mg QD Take 3 mg Dye mg tablet 06-25 12-04 by mouth Metho di 10:44: 00:[address] 47 :00 cholecalcif 2018-05 5000U QD Take 5,000 Dye sophia, 06-25 12-04 Units by Methodi vitamin D3, 10:42: 00:[address] (VITAMIN 57 :00 every D3) 1,000 morning. unit tablet calcitriol Yes Take 1 [place] (ROCALTROL) 1-17 capsule by Dc bc 0.25 MCG 00:00: mouth st capsule 00 every morning triamcinolo Yes 1{appli Q.5D Apply 1 Dye ne 7-19 cation} applicatio Method i (KENALOG) 00:00: n st 0.1 % cream 00 topically 2 (two) times a day. Under breast and between legs levalbutero Yes 1.25mg Q8H Take 3 mL Dye l (XOPENEX) 5-09 (1.25 mg Meth ramiro 1.25 mg/3 00:00: total) by st mL 00 nebulizati nebulizer on every 8 solution (eight) hours as needed for wheezing. Immunizations Ordered Immunization Filled Immunization Date Status Commen ts Source Name Name FLUCELVAX QUAD PF 2019-03-05 Completed Dye 00:00:00 Religious FLUZONE HIGH-DOSE PF 2017-03-09 Completed [facility] ton 00:00:00 Religious Influenza Trivalent 2016-05-21 Completed [facility] on 00:00:00 Religious Pneumococcal 2013-05-21 Completed Dye Conjugate 00:00:00 Religious Tdap 2013-05-21 Completed [facility] 00:00:00 Religious Vital Signs Vital Name Observation Time Observation Value Comments Source Systolic blood 2020-04-06 15:51:53 125 mm[Hg] Rupalto n Religious pressure Diastolic blood 2020-04-06 15:51:53 72 mm[Hg] [place] Religious pressure Heart rate 2020-04-06 15:51:53 80 /min Hardik Conroy Body temperature 2020-04-06 15:51:53 36.44 Mena [place] Religious Respiratory rate 2020-04-06 15:51:53 19 /min [place] Religious Oxygen saturation in 2020-04-06 15:51:53 100 /min Hardik Conroy Arterial blood by Pulse oximetry Body height 2020-04-05 13:30:00 162.6 cm Hardik Conroy Body weight 2020-04-05 13:30:00 75.841 kg Hardik Conroy BMI 2020-04-05 13:30:00 28.70 kg/m2 Hardik Conroy Procedures Procedure Date / Time Performing Clinician Source Performed POC GLUCOSE 2020-04-06 15:58:00 Corrine Osuna POC GLUCOSE 2020-04-06 11:50:00 Corrine Osuna CV STRESS TEST NUCLEAR 2020-04-06 11:28:47 Molly Jameson CARDIO Mega NM MYOCARDIAL PERFUSION 2020-04-06 11:28:47 Molly Jameson REST STRESS 1 DAY Mega POC GLUCOSE 2020-04-06 06:33:00 Corrine Osuna HC COMPLETE BLD COUNT 2020-04-06 05:06:00 Jared Vásquez on Religious W/AUTO DIFF COMPREHENSIVE METABOLIC 2020-04-06 05:06:00 Jared Vásquez PANEL LIPID PANEL 2020-04-06 05:06:00 Corrine Osuna THYROID STIMULATING HORMONE 2020-04-06 05:06:00 Corrine Osuna ESTIMATED GFR 2020-04-06 05:06:00 FahadJared guerra Met hodist POC GLUCOSE 2020-04-05 21:02:00 Corrine Osuna Meth odist TROPONIN 2020-04-05 19:08:[address] Met hodist [address] HEAD WO CONTRAST 2020-04-05 17:01:39 Molly Jameson Religious Mega POC GLUCOSE 2020-04-05 16:13:00 Corrine Osuna Meth odist US DUPLEX VENOUS UPPER 2020-04-05 15:45:00 Fahad, Jared H [place] [facility] EXTREMITY LEFT TROPONIN 2020-04-05 14:30:00 FahadJared mathews Met hodist DIGOXIN LEVEL 2020-04-05 14:30:00 Molly Jameson Met hodist Mega ECG 12-LEAD 2020-04-05 13:42:30 FahadJared mathews Met hodist TTE COMPLETE, WO CONTRAST, 2020-04-05 13:11:00 FahadJared mathews Religious W DOPPLER ([id number]) POC GLUCOSE 2020-04-05 12:01:00 Corrine Osuna odist XR CHEST 1 VW PORTABLE 2020-04-05 11:20:00 Fahad, Jared H [place] [facility] HC COMPLETE BLD COUNT 2020-04-05 09:40:00 Fahad, Jared H [place] Religious W/AUTO DIFF BASIC METABOLIC PANEL 2020-04-05 09:40:00 FahadJaredt on Religious HEPATIC FUNCTION PANEL 2020-04-05 09:40:00 Fahad, Jared H [place] [facility] MAGNESIUM LEVEL 2020-04-05 09:40:00 FahadJared mathews Met hodist TROPONIN 2020-04-05 09:40:00 FahadJared guerra Met hodist ESTIMATED GFR 2020-04-05 09:40:00 FahadJared mathews Met hodist LIPASE LEVEL 2020-04-05 09:40:00 FahadJared guerra Met hodist ECG ED PRELIMINARY 2020-04-05 09:16:09 Jared Vásquez INTERPRETATION ECG 12-LEAD 2020-04-05 09:04:27 Jared Vásquez Met ada POC GLUCOSE 2020-03-25 10:41:00 Avery-Corrine Dozier Meth odist BASIC METABOLIC PANEL 2020-03-25 05:47:00 Al-Lalarryq, Corrine Goldsmithto n Religious ESTIMATED GFR 2020-03-25 05:47:00 Avery-Corrine Dozier Meth odist CBC HEMOGRAM 2020-03-25 05:47:00 Al-KaitlynqCorrine Meth odist POC GLUCOSE 2020-03-25 05:37:00 Avery-Corrine Dozier Meth odist POC GLUCOSE 2020-03-24 19:50:00 Avery-Corrine Dozier Meth odist POC GLUCOSE 2020-03-24 17:22:00 Al-Corrine Dozier Meth odist POC GLUCOSE 2020-03-24 12:19:00 Avery-Corrine Dozier Meth odist POC GLUCOSE 2020-03-24 10:56:00 Al-Corrine Dozier Meth odist OR FL < 1 HOUR 2020-03-24 09:20:00 Ti Post Met ada ND AN ELECTIVE SUPRAGLOTTIC 2020-03-24 08:52:14 Bill Rey AIRWAY Sakshi THROMBECTOMY, AV GRAFT, 2020-03-24 08:12:00 Ti Post Religious WITH REVISION TYPE AND SCREEN 2020-03-24 07:20:00 Ti Post Met ada HC COMPLETE BLD COUNT 2020-03-24 06:35:00 Ti Post on Religious W/AUTO DIFF PARTIAL THROMBOPLASTIN TIME 2020-03-24 06:35:00 Corrine Osuna (PTT) COMPREHENSIVE METABOLIC 2020-03-24 06:30:00 Ti Post PANEL ESTIMATED GFR 2020-03-24 06:30:00 Ti Post Met ada POC GLUCOSE 2020-03-24 05:50:00 Al-Lahiq, Corrine Dye Meth odist POC GLUCOSE 2020-03-23 20:01:00 Al-Kaitlynq, Corrine Dye Meth odist POC GLUCOSE 2020-03-23 17:31:00 Al-Kaitlynq, Corrine Dye Meth odist PROTHROMBIN TIME WITH INR 2020-03-23 17:00:00 Al-Kaitlynq, Corrine Nichols rigo Conroy PARTIAL THROMBOPLASTIN TIME 2020-03-23 17:00:00 Al-Tasia, Corrine Dye Religious (PTT) POC GLUCOSE 2020-03-23 11:40:00 Al-Kaitlynq, Corrine Dye Meth odist POC GLUCOSE 2020-03-23 08:09:00 Al-Kaitlynq, Corrine Dye Meth odist POC GLUCOSE 2020-03-23 04:52:00 Avery-Kaitlynq, Corrine Dye Meth odist HC COMPLETE BLD COUNT 2020-03-23 04:50:00 Maximino Rajput W/AUTO DIFF COMPREHENSIVE METABOLIC 2020-03-23 04:50:00 Maximino Rajput PANEL ESTIMATED GFR 2020-03-23 04:50:00 Maximino Rajput ethodist COVID-19 QUALITATIVE PCR 2020-03-22 22:34:00 Maximino Rajput HC COMPLETE BLD COUNT 2020-03-22 20:40:00 Maximino Rajput W/AUTO DIFF COMPREHENSIVE METABOLIC 2020-03-22 20:40:00 Maximino Rajput PANEL ESTIMATED GFR 2020-03-22 20:40:00 Maximino Rajput ethodist ND CRITICAL CARE, E/M 30-74 2020-03-22 20:08:51 Maximino Rajput MINUTES US DUPLEX VENOUS UPPER 2020-02-27 11:20:00 Mary Tripathi EXTREMITY LEFT POC GLUCOSE 2020-02-18 13:55:00 Avery-Corrine Dozier Meth odist AEROBIC CULTURE 2020-02-18 12:06:00 Ángel Meadows GRAM STAIN 2020-02-18 12:06:00 Ángel Meadows POC GLUCOSE 2020-02-18 11:52:00 Aveyr-KaitlynqCorrine Meth odist POC GLUCOSE 2020-02-18 11:21:00 Avery-Corrine Dozier Meth odist POC GLUCOSE 2020-02-18 09:27:00 Avery-Corrine Dozier Meth odist ECG 12-LEAD 2020-02-18 05:16:56 Avery-Kaitlynq, Corrine Dye Meth odist TROPONIN 2020-02-18 05:11:00 Avery-Kaitlynq, Corrine Dye Meth odist ECG 12-LEAD 2020-02-18 04:49:24 Avery-Kaitlynq, Corrine Dye Meth odist BASIC METABOLIC PANEL 2020-02-18 04:30:00 Marley Cronin Religious ESTIMATED GFR 2020-02-18 04:30:00 Marley Cronin Meth odist POC GLUCOSE 2020-02-17 20:50:00 Avery-KaitlynqCorrine Meth odist POC GLUCOSE 2020-02-17 17:24:00 Avery-Corrine Dozier Meth odist GASTROINTESTINAL PANEL 2020-02-17 16:15:00 Marley Cronin on Religious COVID-19 QUALITATIVE PCR 2020-02-17 15:30:00 Marley Cronin Religious ECG ED PRELIMINARY 2020-02-17 15:18:29 Marley Cronin ethodist INTERPRETATION XR ANKLE 3+ VW LEFT 2020-02-17 15:00:00 Marley Cronin POC GLUCOSE 2020-02-17 14:27:00 Maximino Rajput ethodist ECG 12-LEAD 2020-02-17 14:24:48 Marley Cronin odist US DUPLEX VENOUS UPPER 2020-02-17 14:05:00 Marley Cronin on Religious EXTREMITY LEFT POC GLUCOSE 2020-02-17 13:44:00 Maximino Rajput ethodist US DUPLEX VENOUS LOWER 2020-02-17 13:30:00 Marley Cronin on Religious EXTREMITY LEFT URINE CULTURE 2020-02-17 13:13:00 Marley Cronin Meth odist URINALYSIS SCREEN AND 2020-02-17 13:13:00 Marley Cronin Religious MICROSCOPY, WITH REFLEX TO CULTURE HC COMPLETE BLD COUNT 2020-02-17 12:39:00 Marley Cronin Religious W/AUTO DIFF COMPREHENSIVE METABOLIC 2020-02-17 12:39:00 Marley Cronin Religious PANEL LIPASE LEVEL 2020-02-17 12:39:00 Marley Cronin Meth odist CREATINE KINASE, TOTAL 2020-02-17 12:39:00 Marley Cronin on Religious (CPK) TROPONIN 2020-02-17 12:39:00 Marley Cronin odist B NATRIURETIC PEPTIDE 2020-02-17 12:39:00 Marley Cronin Religious ESTIMATED GFR 2020-02-17 12:39:00 Marley Cronin odist XR KNEE 4+ VW RIGHT 2020-01-18 00:52:08 Shakeel Stephensist Oli XR ANKLE 3+ VW RIGHT 2020-01-18 00:52:08 Shakeel Stephens Religious Oli POC GLUCOSE 2019-10-26 11:52:00 Al-Lahiq, Maha Dye Meth odist POC GLUCOSE 2019-10-26 06:51:00 Al-Lahiq, Maha Dye Meth odist POC GLUCOSE 2019-10-26 06:08:00 Al-Lahiq, Maha Dye Meth odist POC GLUCOSE 2019-10-25 20:54:00 Al-Lahiq, Maha Dye Meth odist POC GLUCOSE 2019-10-25 17:07:00 Al-Lahiq, Maha Dye Meth odist POC GLUCOSE 2019-10-25 15:55:00 Al-Lahiq, Maha Dye Meth odist POC GLUCOSE 2019-10-25 11:20:00 Al-Lahiq, Maha Dye Meth odist POC GLUCOSE 2019-10-25 06:42:00 Al-Lahiq, Maha Dye Meth odist POC GLUCOSE 2019-10-25 05:26:00 Al-Lahiq, Maha Dye Meth odist POC GLUCOSE 2019-10-24 20:12:00 Al-Lahiq, Maha Dye Meth odist POC GLUCOSE 2019-10-24 15:19:00 Al-Lahiq, Maha Dye Meth odist POC GLUCOSE 2019-10-24 11:31:00 Al-Lahiq, Maha Dye Meth odist TTE COMPLETE, WO CONTRAST, 2019-10-24 08:37:00 Banerjee, Wayne lamb Religious W AGITATED SALINE ([id number]) POC GLUCOSE 2019-10-24 06:30:00 Al-Lahiq, Corrine Dye Meth odist POC GLUCOSE 2019-10-24 06:06:00 Al-Lalarryq, Corrine Dye Meth odist LIPID PANEL 2019-10-24 05:43:00 Wayne Banerjee odist HC COMPLETE BLD COUNT 2019-10-24 05:43:00 Banerjee, Wayne alvarez Religious W/AUTO DIFF COMPREHENSIVE METABOLIC 2019-10-24 05:43:00 BanerjeeWayne Religious PANEL ESTIMATED GFR 2019-10-24 05:43:00 Wayne Banerjee odist HEMOGLOBIN A1C 2019-10-23 23:05:00 Al-Lahiq, Corrine Dye Meth odist POC GLUCOSE 2019-10-23 22:50:00 Al-Lahiq, Corrine Mendez odist POC GLUCOSE 2019-10-23 22:12:00 Al-Lalarryq, Corrine Mendez odist LACTIC ACID LEVEL, SEPSIS - 2019-10-23 22:00:00 Wayne Banerjee NOW AND REPEAT 2X EVERY 3 HOURS TROPONIN 2019-10-23 22:00:00 Wayne Banerjee odist POC GLUCOSE 2019-10-23 21:43:00 Al-Lahiq, Corrine Dye Meth odist PROTHROMBIN TIME WITH INR 2019-10-23 17:29:00 Wayne Banerjee Religious PARTIAL THROMBOPLASTIN TIME 2019-10-23 17:29:00 Wayne Banerjee (PTT) COMPREHENSIVE METABOLIC 2019-10-23 17:29:00 Wayne Banerjee Religious PANEL PHOSPHORUS LEVEL 2019-10-23 17:29:00 Wayne Banerjee hoddiya MAGNESIUM LEVEL 2019-10-23 17:29:00 Wayne Banerjee oddiya LACTIC ACID LEVEL, SEPSIS - 2019-10-23 17:29:00 Wayne Banerjee NOW AND REPEAT 2X EVERY 3 HOURS LIPASE LEVEL 2019-10-23 17:29:00 Wayne Banerjee oddiya B NATRIURETIC PEPTIDE 2019-10-23 17:29:00 Wayne Banerjee Religious TROPONIN 2019-10-23 17:29:00 Ritchie Banerjeeluis miguel Mendez odist ESTIMATED GFR 2019-10-23 17:29:00 Banerjee Wayne Mendez odist CREATINE KINASE, TOTAL 2019-10-23 17:29:00 Banerjee Wayne hilario Religious (CPK) HC COMPLETE BLD COUNT 2019-10-23 17:26:00 Wayne Banerjee W/AUTO DIFF BLOOD CULTURE, AEROBIC & 2019-10-23 17:20:00 Wayne Banerjee ANAEROBIC BLOOD CULTURE, AEROBIC & 2019-10-23 17:10:[address] HEAD WO CONTRAST 2019-10-23 16:39:54 Wayne Banerjee URINE CULTURE 2019-10-23 16:30:00 Wayne Banerjee URINALYSIS SCREEN AND 2019-10-23 16:30:00 Wayne Banerjee MICROSCOPY, WITH REFLEX TO CULTURE XR CHEST 1 VW PORTABLE 2019-10-23 16:20:00 Wayne Banerjee Religious ECG 12-LEAD 2019-10-23 16:12:06 Wayne Banerjee odist POC GLUCOSE 2019-10-23 16:12:00 Wayne Banerjee Meth odist ECG ED PRELIMINARY 2019-10-23 15:53:10 Wayne Banerjee ethodist INTERPRETATION MAMMO SCREENING W CAD 2019-08-05 11:27:36 Mohsen Melton BILATERAL POC GLUCOSE 2019-07-12 16:07:00 Avery-LalarryqCorrine Meth odist POC GLUCOSE 2019-07-12 11:15:00 Al-Lahiq, Corrine Dye Meth odist POC GLUCOSE 2019-07-12 05:20:00 Al-Lahiq, Corrine Dye Meth odist BASIC METABOLIC PANEL 2019-07-12 05:05:00 Sakshi Richard ESTIMATED GFR 2019-07-12 05:05:00 Sakshi Richard POC GLUCOSE 2019-07-11 20:05:00 Al-Lahiq, Corrine Dye Meth odist POC GLUCOSE 2019-07-11 15:58:00 Al-Lalarryq, Corrine Dye Meth odist POC GLUCOSE 2019-07-11 11:39:00 Corrine Osuna Meth odist TTE COMPLETE, WO CONTRAST, 2019-07-11 10:24:00 Mary Tripathi W DOPPLER ([id number]) POC GLUCOSE 2019-07-11 06:20:00 Corrine Osuna Meth odist HC COMPLETE BLD COUNT 2019-07-11 04:40:00 Carl Altamirano Religious W/AUTO DIFF Stephen COMPREHENSIVE METABOLIC 2019-07-11 04:40:00 Carl Altamirano Religious PANEL Stephen ESTIMATED GFR 2019-07-11 04:40:00 AveryEriklarrymaryana, Whitlaly Dye Meth odist POC GLUCOSE 2019-07-10 21:00:00 AveryEriklarrymaryana, Corrine Mendez odist US DUPLEX VENOUS UPPER 2019-07-10 18:03:00 Mary Tripathi EXTREMITY LEFT POC GLUCOSE 2019-07-10 16:49:00 Thao, Corrine Dye Meth odist POC GLUCOSE 2019-07-10 10:46:00 Avery-Tasia, Corrine Dye Meth odist TROPONIN 2019-07-10 06:08:00 Carl Altamirano Me thodist Stephen XR CHEST 1 VW PORTABLE 2019-07-10 03:54:33 Carl Altamirano Religious Stephen HC COMPLETE BLD COUNT 2019-07-10 03:17:00 Carl Altamirano W/AUTO DIFF Stephen COMPREHENSIVE METABOLIC 2019-07-10 03:17:00 Carl Altamirano Religious PANEL Stephen TROPONIN 2019-07-10 03:17:00 Carl Altamirano Me thodist Stephen B NATRIURETIC PEPTIDE 2019-07-10 03:17:00 Carl Altamirano Religious Stephen ESTIMATED GFR 2019-07-10 03:17:00 Dinesh Lopez thodist ECG ED PRELIMINARY 2019-07-10 03:08:28 Carl Altamirano INTERPRETATION Stephen ECG 12-LEAD 2019-07-10 03:06:31 Carl Altamirano [facility] PHACOEMULSIFICATION, 2019-04-25 07:15:00 Nick Sims CATARACT, WITH IOL Connor IMPLANTATION POC GLUCOSE 2019-04-25 06:44:00 Nick Sims Plan of Care Planned Activity Planned Date Details Comments Source Future Scheduled 2020-08-04 BREAST CANCER [facility] 00:00:00 SCREENING [code = BREAST CANCER SCREENING] Future Scheduled 2019-07-04 DIABETES: RETINAL EYE [place] [place] [facility] 00:[facility]:00 EXAM [code = DIABETES: RETINAL EYE EXAM] Future Scheduled 2013 65+ PNEUMOCOCCAL [facility] 00:00:00 VACCINE (2 of 2 - PPSV23) [code = 65+ PNEUMOCOCCAL VACCINE (2 of 2 - PPSV23)] Future Scheduled 1998 COLONOSCOPY SCREENING [place] [facility] 00:00:00 [code = COLONOSCOPY SCREENING] Future Scheduled 1998 SHINGLES VACCINES (#1) [place] [facility] 00:00:00 [code = SHINGLES VACCINES (#1)] Future Scheduled 1958 DIABETIC FOOT EXAM [place] [facility] 00:00:00 [code = DIABETIC FOOT EXAM] Encounters Start End Encounter Admission Attending Care Care Encounter Source Date/Time Date/Time Type Type Clinicians Facility Department ID 2020-04-05 2020-04-06 Outpatient AL-LASANG, [place] [id number] [facility] 00:00:00 00:00:00 CORRINE 881 [facility] 2020-03-22 2020-03-25 Inpatient AL-LALARRYQ, [facility]4 [id number] [facility] 00:00:00 00:00:00 MAHLaly 725 Method i 2020-02-27 2020-02-27 Outpatient TRIPATHI, [facility] [id number] [facility] 00:00:00 00:00:00 385 [facility] i 2020-02-17 2020-02-18 Outpatient AL-LAHIQ, [place] [id number] [facility] 00:00:00 00:00:00 MAHA 408 [facility] i 2020-01-17 2020-01-18 Emergency JOSE A, [facility]4 [id number] [facility] 00:00:00 00:00:00 SHAKEEL 66Kylee Method i 2019-10-23 2019-10-26 Inpatient AL-LAHIQ, [facility]4 [id number] [facility] 00:00:00 00:00:00 MAHA [address] 2019-08-05 2019-08-05 Outpatient VANDA [facility] [id number] [facility] 00:00:00 00:00:00 , JORGE LUIS [address] 2019-07-10 2019-07-12 Inpatient THAO [facility] [id number] [facility] 00:00:00 00:00:00 MAHA [address] 2019-03-27 2019-03-30 Outpatient BOAZ, [facility] [id number] [facility] 00:00:00 00:00:00 SARAI [address] Results Test Description Test Time Test Comments Results Result Comments Source Nm myocardial perfusion 2020-04-06 16:12:15 Test Item Value Reference Range Interpretation Comme nts Target HR (test code = 3392579651) 149.00 bpm Resting HR (test code = 8561445740) 80 BPM Resting BP (test code = 8384195013) 123/80 mmHg Percent HR (test code = 2454436934) 55.03 % Post Peak HR (test code = 5308802788) 82 bpm VALERIANO (test code = VALERIANO) Study Quality: good. The study is normal. This study result indicates a low risk of cardiac , or nonfatal infarction, over the ensuing year. The defect is mild in severity, small in size, located at the apical-lateral segment(s) of the left ventricle, predominantly fixed. Normal left ventricular systolic function. Small mild defect in the apical lateral wall, predominantly fixed with normal wall motion. Most likely attentuation artifact from underlying gut activity.No evidence of reversible ischemia.Normal LV function and wall motion [facility] njlfiwl0827-40-63 16:00:29 Test Item Value Reference Range Interpretation Comments POC glucose (test code = 118 mg/dL 65-99 H Ope rator Name: [id number]) Alex Lai ce ID: [id number] Lab Interpretation (test Abnormal code = 61489-3) [facility] 12 cmfi2733-83-65 11:42:22 Test Item Value Reference Range Interpretation Comments Ventricular rate 80 (test code = 253) Atrial rate (test 80 code = 255) ND interval (test 200 code = 266) QRSD interval (test 100 code = 260) QT interval (test 404 code = 264) QTC interval (test 465 code = 265) P axis 1 (test code = 17 267) QRS axis 1 (test code -61 = 268) T wave axis (test 90 code = 270) EKG impression (test Sinus rhythm with code = 273) premature ventricular complexes or fusion complexes-Left axis deviation-Left ventricular hypertrophy with repolarization abnormality-Inferior infarct , age undetermined-Anterolater al infarct , age undetermined-Marked ST abnormality, possible anterior subendocardial injury-Abnormal ECG-In automated comparison with ECG of 05-APR-2020 09:04,-Sinus rhythm has replaced Electronic ventricular pacemaker- [facility] MethodistCv stress [id number] 10:32:04 Test Item Value Reference Range Interpretation Comments Protocol Name (test LEXISCAN code = 7301323873) Time in Exercise 00:01:01 Phase (test code = 8306123714) Max Systolic BP (test 123 code = 0298836137) Max Diastolic BP 80 (test code = 8421408768) Max Heart Rate (test 82 code = 6043442854) Max Predicted Heart 149 Rate (test code = 1847141956) Stress Test Waveform interpreted in Impression (test code report associated with = 5899856545) image study. No interpretation is provided as part of this Stress ECG report.-- Target HR (test code 149.00 bpm = 0860853171) [facility] lufoy6217-75-38 07:56:21 Test Item Value Reference Range Interpretation Comments Sodium (test code = 138 135- 148 mEq/L 2951-2) Potassium (test code = 3.4 3.5- 5.0 mEq/L L 2823-3) Chloride (test code = 99 98- 112 mEq/L 2075-0) CO2 (test code = 8-9) 29 24- 31 mEq/L Anion gap (test code = 10@ANIO 7- 15 mEq/L 10895-3) BUN (test code = 3094-0) 42 mg/dL 8-23 H Creatinine (test code = 3.00 mg/dL 0.5-0.9 H 2160-0) Glucose (test code = 84 mg/dL 65-99 REPEAT7 8 2345-7) Calcium (test code = 9.5 mg/dL 8.8-10.2 46194-2) Protein (test code = 7.1 g/dL 6.3-8.3 -[place] n 2885-2) 4.6-7.0 g/dL1 week 4.4-7 .6 g/dL7 months-1y ear 5.1-7 .3 g/dL1-2 years 5.6-7 .5 g/dL>3 years 6.0-8 .0 g/sQ65-902 6.3-8 .3 g/dL Albumin (test code = 3.3 g/dL 3.5-5 L 1751-7) A/G ratio (test code = 0.9 0.7-3.8 1759-0) Alkaline phosphatase 127 U/L 35-104 H (test code = 6768-6) AST (test code = 1920-8) 19 U/L 10-35 ALT (test code = 1742-6) 12 U/L 5-50 Total bilirubin (test 0.5 mg/dL 0-1.2 code = 1974-2) Lab Interpretation (test Abnormal code = 22456-0) [facility] dfryz9417-35-44 07:56:21 Test Item Value Reference Interpretation Comments Range Cholesterol (test 159 mg/dL <200 code = 2093-3) Triglycerides (test 127 mg/dL <150 code = 2571-8) HDL cholesterol 63 mg/dL >40 (test code = 2085-9) LDL cholesterol 75 mg/dL <100 Result obtai mark by direct (test code = 2088-1) LDL nigel surement Lipid panel SeeBelow Total Cholester ol (mg/dL) interpretation (test < 200 code = 36425-9) Desirable 200-239 Borderline -high >=240 Hi gh Triglyceri shamika (mg/dL) <150 No rmal 150-199 Borderline-high 200-499 High >=500 Very high HDL Choles terol (mg/dL) <40 Low (male) < 40 Low (female) L DL Cholesterol (mg /dL) <100 Optimal 1 00-129 Near or above o ptimal 130-159 Borderline-high 160-189 High >=190 Very high Risk Cat ergories that modify LDL goals.Risk Catergories LDL goal (mg/dL )CHD and CHD risk equiva lent <100 (10-year risk >20%)Multiple ( 2+) risk factors < 130 (10-year risk = <20%)0-1 risk factors <160 (<10-ye ar risk) Defining levels of lipids in metabolic syndromeTriglyc erides > =150 mg/dLHDL Choles terol Men <40 mg/dL Women <40 mg/dL Non-HDL cholest sophia is a second target f or therapy in personswith high triglycerides ( >=200 mg/dL) Hardik MethoddiyaThyroid stimulating nbllstq6268-45-84 07:56:21 Test Item Value Reference Range Interpretation Comments TSH (test code = 3016-3) 2.02 0.27- 4.20 uIU/mL Hardik PaceistEstimated [id number] 07:56:21 Test Item Value Reference Range Interpretation Comments Estimated GFR (test 15 mL/min/1.73 m2 A Caterg ory Units code = 5488) InterpretationG 1 >=90 Dulce l or highG2 60-89 Mildly decrease dG3a 45-59 Mil dly to moderately decr hgdeeI5b 30-44 Moderately to s everely decreasedG4 15-29 Severe ly decreasedG5 <15 Kidney vilma lureThe eGFR was calcul ated using the Chron ic Kidney Disease Epidemiology Collaboration ( CKD-EPI) equation. Interpretation is based on recommendati ons of the National Ki dney Foundation-Kidn ey Disease Outcome s Quality Initiat eveline (NKF-KDOQI) pub lished in 2013. Lab Interpretation Abnormal (test code = 00757-3) Hardik PaceistCBC with platelet and fimbqqgptrwh5292-25-14 05:51:52 Test Item Value Reference Range Interpretation Comments WBC (test code = 24471-2) 9.42 4.50- 11.00 k/uL RBC (test code = 16098-9) 5.03 m/uL 4.2-5.5 HGB (test code = 718-7) 13.3 g/dL 12-16 HCT (test code = 4544-3) 43.9 % 37-47 MCV (test code = 787-2) 87.3 fL 82-100 MCH (test code = 785-6) 26.4 pg 27-34 L MCHC (test code = 786-4) 30.3 g/dL 31-37 L RDW - SD (test code = 64151-9) 49.5 fL 37-55 MPV (test code = 09189-2) 10.2 fL 8.8-13.2 Platelet count (test code = 416 150- 400 k/uL H 71844-4) Nucleated RBC (test code = 0.00 /100 WBC 68501-9) Neutrophils (test code = 48340-4) 51.8 % 39-69 Lymphocytes (test code = 30930-7) 35.6 % 25-45 Monocytes (test code = 13907-5) 7.2 % 0-10 Eosinophils (test code = 20955-5) 4.6 % 0-5 Basophils (test code = 97614-3) 0.6 % 0-1 Lab Interpretation (test code = Abnormal 40699-9) Hardik ConroyUs duplex venous upper inhnlswfq4110-49-70 00:58:29Chronic deep venous thrombosis of the left subclavian vein.Superficial venous thrombosis of the leftcephalic vein. (Clinical correlation recommended)Hardik Conroy Fnbnaeor9256-73-02 20:24:45 Test Item Value Reference Range Interpretation Comments Troponin (test code = 0.054 ng/mL 0-0.04 H In pat ients 67564-9) suspected of gallegos ving a myocardial infarction, ori ng with all other appropriate cli nical measures and ac tions including ECG a nd other diagnosti cs as appropriate, sd asure Ultra TnI at 0 hrs and at 3 hrs.Myocardial infarction VERY LIKELYThe 0 hr TnI level is > 0.10 ng/mL ----- ----- ----- --Roman cardial infarct ion LIKELYThe 0 hr TnI level is > 0.04 ng/mL and 3 hr level is increased or decreased by at least 0.020 ng/ mL ----- ----- ----- Roman cardi al infarction V RADHA UNLIKELYBoth th e 0 hr and 3 hr TnI levels <= 0.04 ng/mL(within no rmal limits) OR 0 hr is > 0.04 ng/mL and 3 hr is increased OR decreased by le ss than 0.020 ng/m L Lab Interpretation Abnormal (test code = 40964-1) [facility] MethodistCT Head Wo Goyvqhtv9527-17-09 17:07:38 Interface, Radiology Results 04/05/2020 5:10 PM CSTEXAMINATION: CT HEAD WO CONTRASTCLI NICAL HISTORY: Fall on eliquis N VCOMPARISON: CT brain dated October 23, 2019TECHNIQUE: Noncontrast enhanced images of the brain were obtained from the skull base to the vertex. Both soft tissue and bone reconstruction algorithms were performed. CT imaging was performed with iterative reconstruction te chnique and/or automated exposure control to reduce radiation dose.FINDINGS:The brain parenchyma hasno acute lesion. The castillo-white matter differentiation is preserved. No evidence of acute intra or extra-axial hemorrhage, mass, mass effect or acute territorial infarction. There is no acute hydrocephalus. Basal cisterns are patent. Again noted are lucencies in the white matter. These may represent chronic small vessel changes. There are grossly stable. There are dense calcifications in the skull base vasculature again noted in the carotid and vertebral arteries. There is mild age-related volume loss.There is no acute intracranial trauma or hemorrhage.No acute soft tissue hematoma or laceration.Paranasal sinuses shows no acute air-fluid levels. Mastoid air cells are clear. No skull fractures oraggressive bony lesions. IMPRESSION:There are involutional changes as detailed above with no acute intracranial abnormality. No change from prior exam.[facility]-WPHYJWPHouston MethodistDigoxin sqsxe6825-18-68 17:04:16 Test Item Value Reference Range Interpretation Comments Digoxin (test code = 0.4 ng/mL 0.8-2 L For vargas id Digoxin 30653-1) results, at trupti st 6 hours should el apse between time of last dose and collec tion of blood.Otherw ise, result may be f alse high.Therapeuti c Range:0.8 - 2.0 ng/mL Lab Interpretation (test Abnormal code = 18655-1) Hardik MethodistTransthoracic Echocardiogram Complete, (w Contrast, Strain and 3D if needed)2020-04-05 15:02:17 Test Item Value Reference Range Interpretation Comments Velocity Ratio 0.87 m/s (V1/V2) (test code = 4689) IVS,d (test code = 0.99 cm 9870028003) EF (test code = 56.48 % 5262886884) LVPWD,d (test code = 1.71 cm 6909187416) AoV Mean PG (test 3.10 mmHg code = 6148176286) AV LVOT peak 4.93 mmHg gradient (test code = 1459820997) MV valve area p 1/2 2.66 cm2 method (test code = 2588824443) LVOT Diam,S (test 2.01 cm code = 6657047260) LVOT area (test code 3.17 cm2 = 2707988877) LVOT Vmax (test code 1.11 m/s = 7749773937) LVOT VTI (test code 0.19 m = 5176304456) AoV Peak PG (test 6.58 mmHg code = 3482875865) MV stenosis pressure 82.68 ms 1/2 time (test code = 2899446174) LV Vol,s A2C (test 41.41 mL code = 3589716147) LV Systolic Volume 22.51 mL/m2 Index (test code = 5845161807) LV Vol,d A2C (test 90.97 mL code = 4922194027) LV Diastolic Volume 49.44 mL/m2 Index (test code = 9929891145) BSA (test code = 1.84 m2 5946482101) AoV Area, Vmax (test 2.76 cm2 code = 4718920037) AoV Area, VTI (test 3.19 cm2 code = 0305273837) AoV Vmax (test code 1.28 m/s = 0671704838) BSA Giraldo (test code 1.93 m2 = 2429820740) BSA Haycock (test 1.91 m2 code = 3930265457) IVS/LVPW,2D (test 0.58 code = 1852943627) Left Atrium 1.23 cm Dimension Anterior (test code = 3167771512) LV,d (test code = 5.05 cm 1100088425) LV,s (test code = 3.55 cm 8449721156) LV Vol,d A4C (test 103.54 ml code = 2049675523) LV Vol,s A4C (test 54.57 ml code = 5168594450) RVSP (TR) (test code 15.62 mmHg = 5926150052) TR Vpeak (test code 1.25 mm/s = 5732667778) BMI (test code = 29.70 kg/m2 6646020733) RA pressure (test 10.00 mmHg code = 1368536763) TR pk grad (test 5.62 mmHg code = 0547177247) AoV area i VTI BSA 1.74 cm2/m2 [place] (test code = 0112567334) MR peak grad (test 50.11 mmHg code = 7654699544) LA Vol 4C (test code 85.00 ml = 4255010297) RVSP (test code = 15.62 mmHg 2368214776) AR Press Half Time 854.12 ms (test code = 6765055608) LV SYS VOL (test 52.73 ml code = 5408655739) LV THOMPSON VOL (test 121.17 ml code = 7696635844) LA diam s (test code 4.40 cm = 7752120999) LA area s A4C (test 27.74 cm2 code = 8293726116) LA Vol MOD A4C (test 85.05 ml code = 7597136728) LV SI Teich 2D (test 37.21 ml/m2 code = 0710686184) LV SV Teich 2D (test 68.44 ml code = 6681215832) LV Vol s Teich PSAX 52.73 ml (test code = 4921198948) LVOT SI (test code = 33.07 ml/m2 9528158422) AoV Cusp sep (test 1.87 code = 4871411538) Aortic Root (test 3.11 cm code = 2968212506) AoV Vmn (test code = 0.79 6089130885) AR slope (test code 1.43 = 9856772478) Ar Vmax (test code = 4.39 0796636235) IVS s 2D (test code 1.25 = 3910159210) LA Ao Ratio Mmode 1.40 (test code = 1260929511) LV FS Cube 2D (test 29.69 code = 6564047414) LV FS Teich 2D (test 29.69 code = 9121567723) ND End Thompson Grad 11.03 (test code = 3903006841) ND End Diat Des 1.66 (test code = 2229551134) AR maxPG (test code 77.04 = 2373659202) D E excurs (test 1.60 code = 2660770821) E f slope (test code 0.05 = 5669453884) E prime lat (test 0.09 code = 1114514459) E keaton sept (test 0.05 code = 3785719021) PV acc T slope (test 5.20 code = 4900161950) PV AT (test code = 117.03 msec 7499408575) CONDE BP EF (test 51.00 % code = 8431098930) LA VOL 2C (test code 88.00 ml = 9972542470) AoV VTI (test code = 0.19 m 5164883930) LV EF,2D (test code 65.24 % = 8171763968) LV EF,A2C (test code 54.48 % = 4803160125) LV EF,A4C (test code 47.30 % = 2044454292) LV EF,BP (test code 50.57 % = 8522086950) Santana Parkton,d A2C (test 7.05 cm code = 6083473952) Santana Parkton,d A4C (test 7.18 cm code = 4434735948) Santana Parkton,s A2C (test 6.16 cm code = 3908438519) Santana Parkton,s A4C (test 6.38 cm code = 6927999842) LV SV,A2C (test code 49.56 % = 8982512596) LV SV,A4C (test code 48.97 % = 3235840630) LV SV,BP (test code 49.42 % = 3700908211) LV Vol,d BP (test 97.74 ml code = 2144343923) LV Vol,s BP (test 48.32 nl code = 8806546899) LV SI MOD BP BSA 26.87 ml/m2 Mariela (test code = 8337117872) LV Vol Index s bpmod 53.14 ml/m2 BSA [place] (test code = 5272251036) PV Vmn (test code = 26.27 m/s 7791801419) MR Vmax (test code = 4.90 m/s 6875962318) LVOT Vmn (test code 0.74 = 1910932613) Pt Size (test code = 162.56 1770772502) Pt Wt (test code = 78.47 6977530306) Aov area Vmn (test 2.98 cm2 code = 5563626702) LA A_P score P (test -5.86 code = 7003767868) LVOT mean grad (test 2.58 mmHg code = 6658142356) AoV area I VMN bsa 1.62 cm2/m2 (test code = 9776757056) AR DT (test code = 3079.47 msec 1151144283) AR pk grad (test 60.68 mmHg code = 5457128971) IVS pct thck PLAX 26.61 % (test code = 4120685373) LV SI Cube 2D (test 45.76 ml/m2 code = 0567281018) LV SV Cube 2D (test 84.17 ml code = 4141553766) LV vol d cube 2D 129.01 ml (test code = 0793346751) LV vol s cube 2D 44.84 ml (test code = 8071748060) LVPW pct thck PLAX 21.97 % (test code = 4215343183) LVPW s PLAX (test 2.09 cm code = 4363217116) VALERIANO (test code = Left ventricular VALERIANO) systolic function is normal. Left Ventricular ejection fraction is 50 - 55%. Mild mitral annular calcification. Left atrium size is severely dilated. Unable to assess diastolic filling. There is edtb-dt-lwrxunir mitral valve regurgitation. Elevated LV filling pressure. Preserved LV function and wall motionSeverely dilated LA with elevated filling pressureMild to moderate MR, mild MACMild AI, mild ND and TR [facility] MethodistXR Chest 1 Seroafmi9166-25-08 12:07:48Hm Interface, Radiology Results - 04/05/2020 12:10 PM CSTEXAMINATION: XR CHEST 1 PORTABLECLINICAL HISTORY: chest painCOMPARISON: October 3IMPRESSION:1.The cardiac silhouette is mildly enlarged. Vasculature is within normal limits.2.There is no confluent infiltrate, effusion, or acute osseous pathology.3.Cardiac pacemaker is stable.[facility]-5RO5627EXNYbniohw MethodistBasic metabolic txcgb0993-52-36 10:08:22 Test Item Value Reference Range Interpretation Comments Sodium (test code = 2951-2) 133 135- 148 mEq/L L Potassium (test code = 2823-3) 3.5 3.5- 5.0 mEq/L Chloride (test code = 2075-0) 96 98- 112 mEq/L L CO2 (test code = 2027-9) 28 24- 31 mEq/L Anion gap (test code = 83318-8) 9@ANIO 7- 15 mEq/L BUN (test code = 3094-0) 35 mg/dL 8-23 H Creatinine (test code = 2160-0) 2.50 mg/dL 0.5-0.9 H Glucose (test code = 2345-7) 304 mg/dL 65-99 H Calcium (test code = 36822-2) 9.8 mg/dL 8.8-10.2 Lab Interpretation (test code = Abnormal 09220-2) [facility] MethodistHepatic function gotpg1408-19-36 10:08:22 Test Item Value Reference Range Interpretation Comments Albumin (test code = 3.5 g/dL 3.5-5 1750-7) Total bilirubin (test 0.6 mg/dL 0-1.2 code = 1974-2) Bilirubin direct (test <0.1 0-0.3 code = 1967-7) Alkaline phosphatase 140 U/L 35-104 H (test code = 6768-6) Protein (test code = 7.1 g/dL 6.3-8.3 -[place] n 2885-2) 4.6-7.0 g /dL1 week 4.4-7.6 g/dL 7 months-1year 5.1-7.3 g/dL 1-2 years 5.6-7.5 g/dL>3 years 6.0-8.0 g/cG94-827 6.3-8. 3 g/dL ALT (test code = 1742-6) 13 U/L 5-50 AST (test code = 1920-8) 17 U/L 10-35 Lab Interpretation (test Abnormal code = 99165-3) [facility] MethodistLipase [id number] 10:08:22 Test Item Value Reference Range Interpretation Comments Lipase (test code = 3040-3) 44 U/L 13-60 [facility] MethodistMagnesium lojvt8032-64-92 10:08:22 Test Item Value Reference Range Interpretation Comments Magnesium (test code = 72575-7) 2.3 mg/dL 1.6-2.4 [facility] ED Preliminary Interpretation - Not an Wgtpq5383-12-26 09:16:09Jared Vásquez MD 04/05/2020 10:26 [facility] ED Preliminary Interpretation - Not an OrderPerformed by: Jared Vásquez MDAuthorized by: Jared Vásquez MD ECG reviewed by ED Physician in the absence of a integrated circuit layout designer: yes Previous ECG: Previous ECG: Compared to current Comparison ECG info: 02/18/20 Similarity: No changeInterpretation: Interpretation: normal Rate: ECG rate: 80 ECG rate assessment: normal Rhythm: Rhythm: paced Pacing: Capture: Complete Type of pacing: Filiberto tricularEctopy: Ectopy: none QRS: QRS axis: Normal QRS intervals: NormalConduction: Conduction: normal ST segments: ST segments: NormalT waves: T waves: normalHouUniversity Medical Center of [facility] aqnzmdbt1440-58-25 06:02:48 Test Item Value Reference Range Interpretation Comments WBC (test code = 41845-4) 8.67 4.50- 11.00 k/uL RBC (test code = 54035-3) 4.35 m/uL 4.2-5.5 HGB (test code = 718-7) 11.7 g/dL 12-16 L HCT (test code = 4544-3) 37.0 % 37-47 MCV (test code = 787-2) 85.1 fL 82-100 MCH (test code = 785-6) 26.9 pg 27-34 L MCHC (test code = 786-4) 31.6 g/dL 31-37 RDW - SD (test code = 81524-1) 47.7 fL 37-55 MPV (test code = 60415-8) 9.5 fL 8.8-13.2 Platelet count (test code = 305 150- 400 k/uL 63892-8) Nucleated RBC (test code = 0.00 /100 WBC 21972-9) Lab Interpretation (test code = Abnormal 43407-0) Hardik PaceistOR [place] < 1 Lcuq0169-71-21 10:08:46Hm Interface, Radiology Results 03/24/2020 10:11 AM CSTEXAMINATION: OR [place] < 1 HOURC-arm fluoroscopy was requested in OR. FLUORO TIME 4:09IMPRESSION:Intraoperative fluoroscopic images. Radiologist was not present during the examination.Separate operative report will be issued by the physician performing the procedure.[id number] PxvojuposMpypbu0170-18-00 08:52:14Bill Rey 03/24/2020 8:52 AMAirwayPerformed by: Bill ReyAuthorized by: Nisa Barton MD Location: ORUrgency: ElectiveDifficult Airway: No Anesthesiologist: Nisa Barton MDResident/SETTER J[employer] PACKAGING MACHINES/AA: Bill ReyPerformed by: resident/SETTER [employer] P[employer] MACHINES/AAPreoxygenated with 100% O2: Yes C-spine Precautions Maintained Throughout: Yes Mask Ventilation: Not attemptedFinal Airway Type: Supraglottic airwayFinal LMA: UniqueLMA Size: 4Number of Attempts at Approach: 1[place] MethodistType and kviino1194-10-47 08:26:00 Test Item Value Reference Range Interpretation Comments ABO grouping (test code = 883-9) O Rh type (test code = 10113-8) POS Antibody screen (gel) (test code = NEG 890-4) Hardik ConroyPartial thromboplastin time, pikbdsaoj9278-32-02 06:58:59 Test Item Value Reference Range Interpretation Comments PTT (test code = 29.0 23.0- 36.0 [place] [address]-7) unfractionated heparin is61.0-112.0 se conds which corresponds to Anti-Xa0.3-0.7 U/ml. Dye MethodistProthrombin time with QLM6535-97-66 17:31:28 Test Item Value Reference Range Interpretation Comments Prothrombin time (test 15.8 11.5- 14.5 sec H code = 5902-2) INR (test code = 1.2 The Interna tional 60080-1) Normalized Rati o (INR) is a therapeuti c monitoring tool for patients who ar e stable on oral anticoagulant t herapy. An INR of 2.0-3 .0 is suggested for d eep vein thrombosis/pulm onary embolism. Lab Interpretation Abnormal (test code = 87608-3) Hardik PaceistCOVID-19 qualitative [id number] 05:28:23 Test Item Value Reference Range Interpretation Comments Interpretation (test Negative results do code = 5467872) not preclude 2019-nCoV infection and should not be used as the sole basis for treatment or other patient management decisions. Negative results must be combined with clinical observations, patient history, and epidemiological information. COVID-19 qualitative Not-Detected Not-Detected PCR result (test code = 51479-1) COVID-19 qualitative See link below for C ase Number: PCR (test code = PDF Lab Report [id number]) [facility] HospitalistCRITICAL [id number] 20:08:51Maximino Rajput MD 03/23/2020 12:07 PMCritical CarePerformed by: Maximino Rajput, MDAuthorized by: Maximino Rajput MD Critical care provider statement: Critical care time (minutes): 33 Critical care start time: 03/22/2020 9:33 PM Critical care time was exclusive of: Separately billable procedures and treating other patients Critical care was necessary to treat or prevent imminent or life- threatening deterioration of the following conditions: Endocrine crisis Critical care wastime spent personally by me on the following activities: Development of treatment plan with patientor surrogate, discussions with primary provider, evaluation of patient's response to treatment, examination of patient, obtaining history from patient or surrogate, re-evaluation of patient's condition, pulse oximetry, ordering and review of radiographic studies, ordering and review of laboratory studies and ordering and performing treatments and interventions Avery 'yes' if you are taking over critical care for this patient from another provider.: [facility] MethodistAerobic [id number] 20:23:41 Test Item Value Reference Range Interpretation Comments Aerobic culture No growth Specimen isolate (test after 3 days. InformationSp ecimen code = 498) Source: Dischar geSpecimen Site: Foot, lef t [facility] [id number] 21:48:45Gram stain isolateFew WBC'sNo organisms seen Comment: Specimen InformationSpecimen Source: DischargeSpecimen Site: Foot, left [facility] MethodistGastrointestinal [id number] 21:20:05 Test Item Value Reference Interpretation Comments Range Adenovirus 40/41 PCR Not Detected Specime n (test code = 7113) Informati onSpecimen Source: StoolSp ecimen Site: Nonpreser javad Astrovirus PCR (test Not Detected code = 4790) Campylobacter PCR Not Detected (test code = 7114) Clostridioides Not Detected difficile PCR (test code = 7115) Cryptosporidium PCR Not Detected (test code = 7116) Cyclospora Not Detected cayetanensis PCR (test code = 7117) Enteroaggregative E Not Detected coli PCR (test code = 4784) Entamoeba histolytica Not Detected PCR (test code = 7118) Enteroinvasive E coli Not Detected PCR (test code = 4788) Enteropathogenic E Not Detected coli PCR (test code = 4785) Norovirus PCR (test Not Detected code = 7119) Plesiomonas Not Detected shigelloides PCR (test code = 4782) Rotavirus PCR (test Not Detected code = 9756625) Salmonella PCR (test Not Detected code = 4783) Sapovirus PCR (test Not Detected code = 4791) Enterotoxigenic E coli Not Detected PCR (test code = 4786) Shigatoxin producing E Not Detected coli PCR (test code = 4787) E coli O157 PCR (test Not Reported code = 7120) Vibrio PCR (test code Not Detected = 7121) Vibrio cholerae PCR Not Detected (test code = 7122) Yersinia Not Detected enterocolitica PCR (test code = 7123) Giardia lamblia PCR Not Detected (test code = 7124) [facility] Vw [id number] 15:19:25Hm Interface, Radiology Results 02/17/2020 3:22 PM CDTEXAMINATION: XR ANKLE 3 VW LEFTCL INICAL HISTORY: edemaCOMPARISON: None.IMPRESSION:1.Extensive soft tissue swelling involves the left ankle. There are postsurgical changes with arthrodesis along the tibiotalar joint space and subtalar joint space. 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 Cortical erosions are present along the distal fibula as well as the medial malleolus portion of the distal tibia.2.Extensive talonavicular and midfoot arthrosis. Small vessel atherosclerotic disease. Calcaneal spur.[facility] lower [id number] 14:51:00Left lower extremity and right groin only venous duplex ultrasound does not show evidence of venous thrombosis in the visualized veins.Valvular reflux is noted in the left distal popliteal vein.Valvular reflux is noted in the right common femoral vein.Lymph node is noted in the left groin.Left lower extremity soft tissue edema is appreciated. Hardik MethodistUrine [id number] 13:29:19 Test Item Value Reference Range Interpretation Comments Urine culture (test SEE COMMENT Bacteriu pineda screen code = 9988451) negative. [facility] MethodistUrinalysis screen and microscopy, with reflex to culture 2020-02-17 13:29:09 Test Item Value Reference Range Interpretation Comments Specimen site (test code = Clean catch 4533891) Color, UA (test code = Yellow 5778-6) Appearance, UA (test code = Slightly-Cloudy 5767-9) Specific gravity, UA (test 1.008 1.001-1.035 code = 5811-5) pH, UA (test code = 5803-2) 5.0 5.0-8.5 Protein, UA (test code = 1+ Negative A 31634-3) Glucose, UA (test code = Negative Negative 34342-5) Ketones, UA (test code = Negative Negative 2514-8) Bilirubin, UA (test code = Negative Negative 5770-3) Blood, UA (test code = Negative Negative 5794-3) Nitrite, UA (test code = Negative Negative 5802-4) Urobilinogen, UA (test code = Negative <2.0 06489-7) Leukocyte esterase, UA (test Negative Negative code = 5799-2) Epithelial cells, UA (test Many Few /HPF code = 5787-7) WBC, UA (test code = 5821-4) 0-5 0- 4 /HPF RBC, UA (test code = 21485-8) 0-5 0- 5 /HPF Bacteria, UA (test code = Few None seen 60177-8) Yeast, UA (test code = None seen 62062-3) Yeast with pseudohyphae, UA None seen (test code = 98052-5) Hyaline casts, UA (test code 3-5 /LPF = 5796-8) Lab Interpretation (test code Abnormal = 22441-2) [facility] MethodistCreatine kinase, total (CPK)2020-02-17 13:14:32 Test Item Value Reference Range Interpretation Comments Creatine kinase (test code = 2157-6) 92 U/L 26-192 [facility] HospitalistB natriuretic [id number] 13:11:17 Test Item Value Reference Range Interpretation Comments BNP (test code = 72505-0) 278 pg/mL 0-100 H Lab Interpretation (test code = Abnormal 32059-4) [facility] MethodistXR Ankle 3+ Vw [id number] 01:01:11Hm Interface, Radiology Results 01/18/2020 1:04 AM CDTEXAM: XR ANKLE 3 VW RIGHTCLINICAL HISTORY: right ankle painCOMPARISON: None.IMPRESSION:Moderate soft tissue swelling surrounding the ankle, nonspecific and may be posttraumatic or infectious/inflammatory. Vascular calcifications arenoted. Soft tissues are otherwise normal. Background of diffuse osseous demineralization. Taking this into consideration, no radiographic evidence of acute displaced right ankle fracture or dislocation. Ankle mortise is intact. Plantar calcaneal spur noted. Pes planus partially visualized.[id number]XR Knee 4+ Vw Right 2020-01-18 00:55:41Hm Interface, Radiology Results 01/18/2020 12:58 AM CDTExamination: XR KNEE 4 VW RIGHTClinical History: right knee pain - hx of RAComparison: None.Findings:4 views of the right knee are obtained. There is moderate to severe joint space narrowing of the medial compartment of the right kneewith spurring. Patella spurring is also noted. Suprapatellar joint effusion is seen. No acute fracture is seen.IMPRESSION:1. 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 Site: Antecubit al, right [facility] MethodistTransthoracic Echocardiogram Complete, (w Contrast, Strain and 3D if needed)2019-10-24 12:57:43 Test Item Value Reference Range Interpretation Comments AoV Area, Vmax (test 1.87 cm2 code = 5146633441) AoV Area, VTI (test 1.96 cm2 code = 6131018881) AoV Mean PG (test code 5.96 mmHg = 6117851243) AoV Peak PG (test code 11.87 mmHg = 5144133031) AoV Vmax (test code = 1.72 m/s 1920860097) AoV VTI (test code = 0.30 m 0125640198) IVS,d (test code = 0.83 cm 0876935466) LV,d (test code = 6.14 cm 9444519532) LV EF,A2C (test code = 61.49 % 6264032009) LV EF,A4C (test code = 55.95 % 7401928214) LV EF,BP (test code = 56.79 % 1994278787) Santana Parkton,d A2C (test 7.05 cm code = 7165169160) Santana Parkton,d A4C (test 7.29 cm code = 7197994119) Santana Parkton,s A2C (test 5.56 cm code = 5843848925) Santana Parkton,s A4C (test 6.28 cm code = 1065450685) LV,s (test code = 4.54 cm 5378605781) LV SV,A2C (test code = 60.23 % 8661794288) LV SV,A4C (test code = 63.83 % 3429126971) LV Vol,d A2C (test code 97.94 mL = 4068732426) LV Vol,d A4C (test code 114.10 ml = 0031803025) LV Vol,d BP (test code 106.96 ml = 4130119508) LV Vol,s A2C (test code 37.71 mL = 3020212362) LV Vol,s A4C (test code 50.27 ml = 6114309209) LV Vol,s BP (test code 46.22 nl = 1870548420) LVOT Diam,S (test code 1.98 cm = 4794240299) LVOT Vmax (test code = 1.04 m/s 7054614260) LVOT VTI (test code = 0.19 m 6441841387) LVPWD,d (test code = 0.81 cm 0129161776) TR Vpeak (test code = 2.48 mm/s 3683294447) AR Press Half Time 395.19 ms (test code = 1894390843) MV E A ratio (test code 2.93 = 2116174223) TR pk grad (test code = 18 mmHg 2312272462) MR Vmax (test code = 5.07 m/s 6993593825) MR peak grad (test code 95.04 mmHg = 2512163683) E wave decelartion time 191.39 msec (test code = 6889193645) MV Peak A Des (test 0.40 m/s code = 4171484758) MV valve area p 1/2 5.28 cm2 method (test code = 4892948197) MV Peak E Des (test 1.18 m/s code = 5393924381) MV stenosis pressure 41.68 ms 1/2 time (test code = 1892522524) AV LVOT peak gradient 4.35 mmHg (test code = 4828487791) LV SYS VOL (test code = 94.52 ml 9917026771) LV THOMPSON VOL (test code 189.76 ml = 4800772776) LV SV Teich 2D (test 95.24 ml code = 3921348123) LVOT SI (test code = 31.94 ml/m2 3347320226) AoV Cusp sep (test code 1.65 = 1831719692) AoV Vmn (test code = 1.13 5816068130) IVS s 2D (test code = 1.43 5946945994) AR slope (test code = 2.38 2411472901) Ar Vmax (test code = 3.25 2294195499) LA Ao Ratio Mmode (test 1.79 code = 2154140000) LVOT Vmn (test code = 0.69 2135045852) Pt Size (test code = 162.56 7320476445) Pt Wt (test code = 81.65 0401048599) Ao root annulus (test 3.08 cm code = 8749195807) PV AT (test code = 114.19 msec 8863732858) LVOT mean grad (test 2.20 mmHg code = 1288365428) AR DT (test code = 1362.71 msec 6495346603) AR pk grad (test code = 42.13 mmHg 9824614218) LVPW s PLAX (test code 1.40 cm = 1940175687) MV Decel slope (test 6.18 m/s2 code = 7105641901) LA Vol MOD A4C (test 61.46 ml code = 3351443689) Velocity Ratio (V1/V2) 0.60 m/s (test code = 4689) EF (test code = 50.19 % 3809764231) E/A ratio (test code = 2.95 7096430481) LVOT area (test code = 3.08 cm2 1970220364) RVSP (TR) (test code = 23.42 mmHg 1048149100) RA pressure (test code 5.00 mmHg = 0151663719) LA Vol 4C (test code = 61.00 ml 3706417096) RVSP (test code = 23.42 mmHg 4839947706) LA diam s (test code = 5.50 cm 0665007574) Aortic Root (test code 3.10 cm = 8149942906) ND End Thompson Grad (test 3.56 code = 8242399048) ND End Diat Des (test 0.94 code = 2477641007) AR maxPG (test code = 42.13 1269361191) D E excurs (test code = 1.30 5526538300) E f slope (test code = 0.08 6595498344) E prime lat (test code 0.08 = 2020409837) E keaton sept (test code 0.08 = 1151895133) PV acc T slope (test 5.40 code = 0594782956) CONDE BP EF (test 57.00 % code = 4557173430) LA VOL 2C (test code = 81.00 ml 8455068093) VALERIANO (test code = VALERIANO) BUBBLE STUDY PERFORMED. Left ventricular systolic function is normal. Left Ventricular ejection fraction is 50 - 55%. Left atrium size is moderately dilated. Unable to assess diastolic filling. Saline contrast study was negative for PFO [facility] MethodistHemoglobin [id number] 23:21:20 Test Item Value Reference Range Interpretation Comments Hemoglobin A1C (test 9.8 % 4-5.6 H HbA1c c utoffs for code = 85736-4) diagnosing diabetes:4.0% - 5.6% = normal5.7% - 6.4% = increased risk for diabetes (prediabetes)9> =6.5% = [id number] s for glycemic contro l (ADA 2016)< 7.0% Ta rget for non adults with shane betes. More or less stringent targe ts may be appropriate for individual lino ents. <7.5% Target for Children and adolescents wit h type 1 diabetes. Lab Interpretation (test Abnormal code = 53467-3) [facility] MethodistLactic acid level, SEPSIS - Now and repeat 2x every 3 hours 2019-10-23 22:39:39 Test Item Value Reference Range Interpretation Comments Lactic acid (test code = 49199-2) 1.1 mmol/L 0.5-2.2 [facility] MethodistPhosphorus [id number] 18:06:13 Test Item Value Reference Range Interpretation Comments Phosphorus (test code = 2777-1) 5.3 mg/dL 2.4-4.5 H Lab Interpretation (test code = Abnormal 68754-0) [facility] MethodistMammo Screening w Cad [id number] 11:41:20PROCEDURE: MAMMO SCREENING W CAD BILATERAL 08/05/2019 11:10 AM This patient's mammogram was interpreted with the assistance of computer-aided detection (CAD). CLINICAL HISTORY: 68 -year-old female referred for screening mammogram. She has no new or current breast complaints. FAMILY HISTORY: Family history of breast carcinoma diagnosed in patient's sister at age 70. COMPARISON: 07/31/2018, 07/20/2017,06/06/2016, 06/04/2015. BREAST DENSITY: There are scattered areas of fibroglandular density. DIGITAL SCREENING MAMMOGRAPHY FINDINGS:There are no dominant masses, suspicious microcalcifications or unexplained architectural distortion to suggest malignancy. Cardiac device overlies the left axilla. No interval suspicious mammographic change. IMPRESSION:BI-RADS Category 2-Benign. RECOMMENDATION:Comparisonwith physical examination and annual mammography. This facility is accredited by [employer] for Mammography. A negative x-ray report should not delay biopsy if a dominant or clinically suspicious mass is present. Not all cancers are identified by x-ray. DWS01 [facility] MethodistEchocardiogram complete w contrast and 3D if [id number] 13:17:48 Test Item Value Reference Range Interpretation Comments AoV Area, Vmax (test 1.73 cm2 code = 9754812817) AoV Area, VTI (test 1.91 cm2 code = 5336647938) AoV Mean PG (test 4.85 mmHg code = 6150524525) AoV Peak PG (test 8.22 mmHg code = 5166262492) AoV Vmax (test code = 1.43 m/s 9770284690) AoV VTI (test code = 0.22 m 8681408025) IVS,d (test code = 1.10 cm 7100173682) LV,d (test code = 4.86 cm 6629400637) LV EF,A2C (test code 59.64 % = 1793284601) LV EF,A4C (test code 66.07 % = 8218303148) LV EF,BP (test code = 64.79 % 4007930973) Santana Parkton,d A2C (test 7.41 cm code = 9291547657) Santana Parkton,d A4C (test 6.65 cm code = 1984730493) Santana Parkton,s A2C (test 6.28 cm code = 6084432646) Santana Parkton,s A4C (test 6.30 cm code = 4549762655) LV,s (test code = 3.19 cm 5576016788) LV SV,A2C (test code 45.48 % = 7105595496) LV SV,A4C (test code 74.07 % = 4040565942) LV Vol,d A2C (test 76.26 mL code = 3579614462) LV Vol,d A4C (test 112.10 ml code = 8672123564) LV Vol,d BP (test 97.19 ml code = 5844493917) LV Vol,s A2C (test 30.78 mL code = 3941853439) LV Vol,s A4C (test 38.04 ml code = 8208946166) LV Vol,s BP (test 34.22 nl code = 7191418750) LVOT Diam,S (test 1.85 cm code = 0772305944) LVOT Vmax (test code 0.93 m/s = 2336187901) LVOT VTI (test code = 0.16 m 5256928854) LVPWD,d (test code = 1.08 cm 6661433458) TR Vpeak (test code = 2.90 mm/s 3771265867) AR Press Half Time 723.19 ms (test code = 2536451809) TR pk grad (test code 33.67 mmHg = 5410238086) MR Vmax (test code = 5.49 m/s 5995359384) MR peak grad (test 90.92 mmHg code = 3858117628) MV valve area p 1/2 3.13 cm2 method (test code = 9472335350) MV stenosis pressure 70.38 ms 1/2 time (test code = 8030745975) AV LVOT peak gradient 3.43 mmHg (test code = 0537100481) LV SYS VOL (test code 40.59 ml = 7936706441) LV THOMPSON VOL (test 110.66 ml code = 3919486980) LA area s A4C (test 29.78 cm2 code = 6433099030) LV SV Teich 2D (test 70.07 ml code = 0444582454) LVOT SI (test code = 22.69 ml/m2 6598017872) AoV Cusp sep (test 0.95 code = 7004815365) AoV Vmn (test code = 1.05 2514691189) IVS s 2D (test code = 1.71 4778016083) AR slope (test code = 1.59 2259691698) Ar Vmax (test code = 3.97 6700024583) LA Ao Ratio Mmode 1.61 (test code = 1517969355) LVOT Vmn (test code = 0.63 8251802684) Pt Size (test code = 162.56 7264997103) Pt Wt (test code = 78.47 5161854851) PV AT (test code = 85.63 msec 0340913808) LVOT mean grad (test 1.78 mmHg code = 7725895596) AR DT (test code = 2493.75 msec 9817955801) AR pk grad (test code 63.10 mmHg = 0475118503) LVPW s PLAX (test 1.75 cm code = 2997263617) LA Vol MOD A4C (test 91.96 ml code = 8770917862) Velocity Ratio 0.65 m/s (V1/V2) (test code = 4689) EF (test code = 63.32 % 7281890093) LVOT area (test code 2.69 cm2 = 5412252298) LA Volume Index (test 58.15 mL/m2 code = 3877684724) RA pressure (test 5.00 mmHg code = 5825050022) LA Vol 4C (test code 92.00 ml = 7903915334) RVSP (test code = 38.67 mmHg 3808310679) LA diam s (test code 4.90 cm = 1235154719) Aortic Root (test 3.06 cm code = 7692101928) ND End Thompson Grad 6.08 (test code = 2098840560) ND End Diat Des (test 1.23 code = 8832923209) AR maxPG (test code = 63.10 0684645569) D E excurs (test code 1.40 = 7692025115) E f slope (test code 0.09 = 6938488209) PV acc T slope (test 8.00 code = 3694754517) CONDE BP EF (test 65.00 % code = 7815017745) LA VOL 2C (test code 102.00 ml = 7665808117) VALERIANO (test code = VALERIANO) Left ventricular systolic function is normal. Left Ventricular ejection fraction is 60 - 65%. Left atrium size is moderately dilated. Unable to assess diastolic filling. [facility]
[2020-04-13] MEDS ORDERED: D50W 50 ML IV ONE (12:45)
--- NOTE | 2020-04-13 13:03 | RAD REPORT ---
EXAM DESCRIPTION: CT - CTHCSPWOC - 04/13/2020 12:54 pm CLINICAL HISTORY: fall injury;Painfrontal head trauma COMPARISON: No comparisons TECHNIQUE: Axial 5 mm thick images of the head were obtained. Axial 2 mm thick images of the cervic al spine were obtained with sagittal and coronal reconstruction images generated and reviewed. All CT scans are performed using dose optimization technique as appropriate and may include automated exposure control or mA/KV adjustment according to patient size. FINDINGS: No intracranial hemorrhage, mass, edema or acute intracranial finding. No acute cortical b ased infarction. No cortical edema or sulcal effacement. Atrophy is minimal. Mild to moderate chronic ischemic change seen in the cerebral white matter. No extra-axial fluid collections. Mastoid air jared ls and paranasal sinuses are clear. No globe or orbit abnormality seen. Scalp hematoma overlies the m idline and left-side frontal bone. Underlying bone is intact. Cervical body height and alignment are normal. No disk space narrowing. No fracture or acute bony abn ormality. Mild facet joint degenerative changes are present. Central canal detail is inherently limit ed. No paraspinal mass or hematoma. Left supraclavicular bypass graft is in place. Patency cannot be asse ssed on this study. IMPRESSION: Scalp hematoma in the frontal soft tissues with underlying sinus and skull intact. Mild atrophy and mild to moderate chronic ischemic changes are present. No acute intracranial finding . Negative CT cervical spine examination for acute or significant finding.
[2020-04-13 13:25] LABS: Protime INR 1.01
[2020-04-13 13:28] LABS: Absolute Lymphocytes (CBC) 1.5 K/uL (0.7-4.9); Basophils % 0.9 % (0-1.3); Hematocrit 40.6 % (36.0-45.0); Lymphocytes % 16.8 % (15.3-44.8); MPV 8.7 fL (7.6-11.3); RBC Red Blood Cell Count 4.86 M/uL (3.86-4.86)
[2020-04-13 13:39] LABS: Albumin 3.3 g/dL (3.4-5.0); Bilirubin Total 0.4 mg/dL (0.2-1.0); Potassium 3.6 mmol/L (3.5-5.1); Protein, Total 7.8 g/dL (6.4-8.2)
[2020-04-13] MEDS ORDERED: D5 0.45 NS 1,000 ML IV ONE (16:20)
--- NOTE | 2020-04-13 17:51 | EDPHYS ---
Physician Documentation [facility] Name: Latricia Cadet Age: 69 yrs Sex: Female : 1950 Arrival Date: 04/13/2020 Time: 12:33 Bed 28 Private MD: ED Physician Robe Madrigal HPI: 04/13 14:26 This 69 yrs old Female presents to ER via Stretcher with complaints of Fall jr8 Injury. 14:26 Onset: The symptoms/episode began/occurred acutely, today. Associated injuries: The jr8 patient sustained injury to the head, abrasion, hematoma, swelling, tenderness. Severity of symptoms: At their worst the symptoms were moderate, in the emergency department the symptoms are unchanged. The patient has not experienced similar symptoms in the past. The patient has not recently seen a physician. Patient came in via her after patient became unresponsive. stated that she finished her [employer] infusion this morning. Stated that a while after started to act disoriented and was having trouble balancing. Stated that she fell out of her wheel chair face first. Known diabetic and was concerned her sugar was low. Upon arrival to ED BGL for patient was in the 20s. Historical: - Allergies: 12:50 No Known Allergies; jd3 - Home Meds: 13:47 insulin [Active]; digoxin 125 mcg Oral tab [Active]; Lasix 80 mg Oral tab [Active]; jd3 hydralazine 100 mg Oral tab [Active]; isosorbide mononitrate 60 mg Oral Tb24 [Active]; melatonin 10 mg Oral tab [Active]; potassium chloride 10 mEq Oral cpER [Active]; pramipexole 1 mg oral tab [Active]; clonidine HCl 0.1 mg Oral tab [Active]; Eliquis 2.5 mg oral tab [Active]; calcitriol 0.25 mcg oral cap [Active]; Apidra SoloStar subcutaneous subcutaneous [Active]; Tresiba FlexTouch U-100 subcutaneous subcutaneous [Active]; - PMHx: 12:50 Diabetes - NIDDM; CHF; Rheumatoid Arthritis; insomnia; kidney disease; Hypertension; jd3 - PSHx: 12:50 PACEMAKER PLACEMENT; dialysis port left arm; jd3 - Immunization history:: Adult Immunizations unknown. - Social history:: Smoking status: unknown. - Immunization history: Last tetanus immunization: unknown. ROS: 14:26 Unable to obtain ROS due to obtunded state. jr8 Exam: 14:26 Eyes: Pupils equal round and reactive to light, extra-ocular motions intact. Lids and jr8 lashes normal. Conjunctiva and sclera are non-icteric and not injected. Cornea within normal limits. Periorbital areas with no swelling, redness, or edema. ENT: Nares patent. No nasal discharge, no septal abnormalities noted. Oropharynx with no redness, swelling, or masses, exudates, or evidence of obstruction, uvula midline. Mucous membranes moist. Neck: Trachea midline, no thyromegaly or masses palpated, and no cervical lymphadenopathy. Supple, full range of motion Cardiovascular: Regular rate and rhythm with a normal S1 and S2. No gallops, murmurs, or rubs. Normal PMI, no JVD. No pulse deficits. Respiratory: Lungs have equal breath sounds bilaterally, clear to auscultation and percussion. No rales, rhonchi or wheezes noted. No increased work of breathing, no retractions or nasal flaring. Abdomen/GI: Soft with normal bowel sounds. No distension or tympany. Skin: Warm, dry with normal turgor. Normal color with no rashes, no lesions, and no evidence of cellulitis. MS/ Extremity: Pulses equal, no cyanosis. Neurovascular intact. Full, normal range of motion. 14:26 Head/face: Noted is abrasion(s), that are mild, of the nose, hematoma, that is moderate, of the forehead. 14:26 Neuro: Orientation: Not oriented to person, place, time, situation, Mentation: slow to respond, unable to follow commands, seizure activity, is not displayed by the patient, Abnormal movements: there are no abnormal movements. Vital Signs: 12:47 BP 121 / 78; Pulse 80; Resp 18 S; Pulse Ox 98% on R/A; Weight 77.11 kg (R); Height 5 jd3 ft. 4 in. (162.56 cm) (R); Pain 0/10; 13:18 BP 149 / 89; Pulse 80; Resp 16 S; Temp 98.1(O); Pulse Ox 100% on R/A; Pain 0/10; jd3 14:08 BP 129 / 88; Pulse 81; Resp 17 S; Pulse Ox 100% on R/A; jd3 15:25 BP 146 / 74; Pulse 80; Resp 17 S; Pulse Ox 100% on R/A; jd3 16:22 BP 136 / 81; Pulse 80; Resp 17 S; Pulse Ox 100% on R/A; jd3 17:38 Pulse 80; Resp 17 S; Pulse Ox 100% on R/A; Pain 0/10; jd3 18:45 BP 122 / 79; Pulse 80; Resp 15 S; Pulse Ox 100% on R/A; jd3 20:00 BP 136 / 78; Pulse 80; Resp 17 S; Pulse Ox 100% on R/A; jd3 12:47 Body Mass Index 29.18 (77.11 kg, 162.56 cm) jd3 [place] Coma Score: 12:30 Eye Response: to pain(2). Verbal Response: confused(4). Motor Response: localizes jd3 pain(5). Total: 11. 13:00 Eye Response: spontaneous(4). Verbal Response: oriented(5). Motor Response: obeys jd3 commands(6). Total: 15. 14:26 Eye Response: to pain(2). Verbal Response: incomprehensible(2). Motor Response: jr8 withdraws from pain(4). Total: 8. 15:26 Eye Response: spontaneous(4). Verbal Response: oriented(5). Motor Response: obeys jd3 commands(6). Total: 15. Trauma Score (Adult): 12:30 Eye Response: to pain(0); Verbal Response: confused(1); Motor Response: localizes jd3 pain(1); Systolic BP: > 89 mm Hg(4); Respiratory Rate: 10 to 29 per min(4); [place] Score: 11; Trauma Score: 10 13:01 Eye Response: spontaneous(1); Verbal Response: oriented(1); Motor Response: obeys jd3 commands(2); Systolic BP: > 89 mm Hg(4); Respiratory Rate: 10 to 29 per min(4); [place] Score: 15; Trauma Score: 12 15:26 Eye Response: spontaneous(1); Verbal Response: oriented(1); Motor Response: obeys jd3 commands(2); Systolic BP: > 89 mm Hg(4); Respiratory Rate: 10 to 29 per min(4); [place] Score: 15; Trauma Score: 12 MDM: 12:40 Patient medically screened. 8 14:26 Data reviewed: vital signs, nurses notes, lab test result(s), radiologic studies, CT jr8 scan. Data interpreted: Pulse oximetry: on. Counseling: I had a detailed discussion with the patient and/or guardian regarding: the historical points, exam findings, and any diagnostic results supporting the discharge/admit diagnosis, lab results, radiology results, the need for outpatient follow up, a family practitioner, to return to the emergency department if symptoms worsen or persist or if there are any questions or concerns that arise at home. Response to treatment: the patient's symptoms have resolved after treatment. ED course: After D50 infusion patient went back to base line and can answer all questions appropriately. Stated that she took her morning insulin but does not think she ate this morning before her infusion and nothing for lunch. Patients BGL after eating is only 72. Gave juice and seeing how it does. 16:32 ED course: After juice and eating BGL is now in the 60s. Will start on D5 1/2 NS at 75 jr8 ml per hour and transfer for glucose control as patient stated that she can only go to [facility] . 17:50 ED course: [place] at capacity. Patient good with staying here . [facility] 04/13 12:35 Order name: CBC with Diff; Complete Time: 13:30 04/13 12:35 Order name: CMP; Complete Time: 13:54 04/13 12:36 Order name: glucometer results - FOR PT WITH NO ID 04/13 12:37 Order name: Glucose, Ancillary(No Armband); Complete Time: 12:47 EDMA 04/13 12:41 Order name: Protime (+inr); Complete Time: 13:54 [facility] 04/13 12:41 Order name: Ptt, Activated; Complete Time: 13:54 [facility] 04/13 13:31 Order name: Glucose, Ancillary Testing; Complete Time: 13:54 EDMA 04/13 15:12 Order name: Glucose, Ancillary Testing; Complete Time: 15:19 EDMA 04/13 16:00 Order name: Glucose, Ancillary Testing; Complete Time: 16:03 EDMA 04/13 18:33 Order name: Glucose, Ancillary Testing; Complete Time: 18:49 EDMA 04/13 19:48 Order name: Glucose, Ancillary Testing; Complete Time: 20:18 EDMS 04/13 21:14 Order name: Glucose, Ancillary Testing EDMS 04/14 00:01 Order name: Glucose, Ancillary Testing EDMS 04/14 00:01 Order name: Glucose, Ancillary Testing EDMS 04/13 12:41 Order name: CT Head C Spine; Complete Time: 13:29 jr8 04/13 12:52 Order name: Labs - recollect needed: recollect labs; Complete Time: 13:18 bd 04/13 18:58 Order name: Misc. Order: Continue Q1H BGL checks; Complete Time: 20:36 la1 04/14 03:46 Order name: CBC with Automated Diff EDMS 04/14 03:56 Order name: Basic Metabolic Panel EDMS 04/14 04:34 Order name: COVID-19 la 04/14 08:01 Order name: Glucose, Ancillary Testing EDMS 04/14 11:32 Order name: Magnesium EDMS 04/14 13:36 Order name: Glucose, Ancillary Testing EDMS 04/14 13:50 Order name: CORONAVIRUS EDMS Administered Medications: 12:29 Drug: D50W 50 ml Route: IVP; Site: right antecubital; jd3 13:20 Follow up: Response: No adverse reaction jd3 17:13 Drug: D5-1/2 NS 1000 ml Route: IV; Rate: 75 ml/hr; Site: right upper arm; jd3 18:00 Follow up: Response: No adverse reaction; IV Status: Infusion continued upon admission jd3 18:35 Drug: morphine 2 mg Route: IVP; Site: right antecubital; zb 19:30 Follow up: Response: No adverse reaction; RASS: Alert and Calm (0) jd3 Point of Care Testing: Blood Glucose: 15:03 Blood Glucose: 72 mg/dL; zb Ranges: Critical Glucose Levels:Adult <50 mg/dl or >400 mg/dl <40 mg/dl or >180 mg/dl Disposition: 04/15 10:58 Co-signature as Attending Physician, Robe Madrigal MD I agree with the assessment and guy plan of care. Disposition: 04/13/20 17:51 Hospitalization ordered by Des Ellison for Observation. Preliminary diagnosis is Hypoglycemia, unspecified. - Bed requested for [facility] ER HOLD. - Status is Observation. iw - Condition is Stable. - Problem is new. - Symptoms have improved. Signatures: Dispatcher [employer] EDMS Fauzia Hernandez Sarahi Wilkerson, RN RN Cecilio Curtis RN RN sg Anderson, Corey, MD MD cha Williams, Irene, RN RN iw Malachi Fields PA PA jr8 Lennie, Rick, SUBSTATION DESIGNER-C SUBSTATION DESIGNER-Cla1 Noe Borja, RN Thuy Traylor RN JUAN R zb Corrections: (The following items were deleted from the chart) 04/13 16:34 14:26 ED course: After D50 infusion patient went back to base line and can answer all jr8 questions appropriately. Stated that she took her morning insulin but does not think she ate this morning before her infusion and nothing for lunch. Patient was able to tolerate diet here and sugars are maintaining . jr8 18:15 17:51 Hospitalization Ordered by Kirill Sifuentes for Observation. Preliminary diagnosis jr8 is Hypoglycemia, unspecified. Bed requested for Telemetry/MedSurg (observation). Status is Observation. Condition is Stable. Problem is new. Symptoms have improved. jr8 21:20 18:15 04/13/2020 17:51 Hospitalization Ordered by Des Ellison MD for Observation. sg Preliminary diagnosis is Hypoglycemia, unspecified. Bed requested for Telemetry/MedSurg (observation). Status is Observation. Condition is Stable. Problem is new. Symptoms have improved. jr8 21:20 21:20 04/13/2020 17:51 Hospitalization Ordered by Des Ellison MD for Observation. sg Preliminary diagnosis is Hypoglycemia, unspecified. Bed requested for [facility] ER HOLD. Status is Observation. Condition is Stable. Problem is new. Symptoms have improved. 04/14 11:29 04/13 21:20 04/13/2020 17:51 Hospitalization Ordered by Des Ellison MD for dw Observation. Preliminary diagnosis is Hypoglycemia, unspecified. Bed requested for [facility] ER HOLD. Status is Observation. Condition is Stable. Problem is new. Symptoms have improved. 04/14 12:01 11:29 04/13/2020 17:51 Hospitalization Ordered by Des Ellison MD for Observation. dw Preliminary diagnosis is Hypoglycemia, unspecified. Bed requested for Telemetry/MedSurg (observation). Status is Observation. Condition is Stable. Problem is new. Symptoms have improved. dw 15:15 12:01 04/13/2020 17:51 Hospitalization Ordered by Des Ellison MD for Observation. iw Preliminary diagnosis is Hypoglycemia, unspecified. Bed requested for [facility] ER HOLD. Status is Observation. Condition is Stable. Problem is new. Symptoms have improved. dw
--- NOTE | 2020-04-13 17:51 | ER ---
Nurse's Notes [facility] Name: Latricia Cadet Age: 69 yrs Sex: Female : 1950 Arrival Date: 04/13/2020 Time: 12:33 Bed 28 Private MD: Diagnosis: Hypoglycemia, unspecified Presentation: 04/13 12:30 Chief complaint: Spouse and/or significant other states: "She was having a diabetic jd3 attack and she lost consciousness and fell forward out of a wheelchair.". Coronavirus screen: At this time, the client does not indicate any symptoms associated with coronavirus-19. Ebola Screen: Patient negative for fever greater than or equal to 101.5 degrees Fahrenheit, and additional compatible Ebola Virus Disease symptoms. Initial Sepsis Screen: Does the patient meet any 2 criteria? No. Patient's initial sepsis screen is negative. Does the patient have a suspected source of infection? No. Patient's initial sepsis screen is negative. Risk Assessment: Do you want to hurt yourself or someone else? Patient reports no desire to harm self or others. 12:30 Method Of Arrival: Stretcher jd3 12:30 Acuity: JAKE 1 jd3 12:30 Onset of symptoms was April 13, 2020. jd3 12:30 Note C-collar placed on pt arrival to room. jd3 12:50 Care prior to arrival: None. Mechanism of Injury: Fall out of chair. Trauma event jd3 details: Injury occurred: at home. Trauma Activation: Alert Physician: ED Physician; Name: Rohan HOLLIDAY/Malachi TAYLOR; Notified At: 12:30; Arrived At: 12:30 Physician: General Surgeon; Name: ; Notified At: 12:30; Arrived At: Physician: Radiology; Name: research food technologist and x-ray tech; Notified At: 12:30; Arrived At: 12:30 Physician: Respiratory; Name: ; Notified At: 12:30; Arrived At: Physician: Lab; Name: ; Notified At: 12:30; Arrived At: Historical: - Allergies: 12:50 No Known Allergies; jd3 - Home Meds: 13:47 insulin [Active]; digoxin 125 mcg Oral tab [Active]; Lasix 80 mg Oral tab [Active]; jd3 hydralazine 100 mg Oral tab [Active]; isosorbide mononitrate 60 mg Oral Tb24 [Active]; melatonin 10 mg Oral tab [Active]; potassium chloride 10 mEq Oral cpER [Active]; pramipexole 1 mg oral tab [Active]; clonidine HCl 0.1 mg Oral tab [Active]; Eliquis 2.5 mg oral tab [Active]; calcitriol 0.25 mcg oral cap [Active]; Apidra SoloStar subcutaneous subcutaneous [Active]; Tresiba FlexTouch U-100 subcutaneous subcutaneous [Active]; - PMHx: 12:50 Diabetes - NIDDM; CHF; Rheumatoid Arthritis; insomnia; kidney disease; Hypertension; jd3 - PSHx: 12:50 PACEMAKER PLACEMENT; dialysis port left arm; jd3 - Immunization history:: Adult Immunizations unknown. - Social history:: Smoking status: unknown. - Immunization history: Last tetanus immunization: unknown. Screenin:01 Abuse screen: Denies threats or abuse. Nutritional screening: No deficits noted. jd3 Tuberculosis screening: No symptoms or risk factors identified. 13:19 Fall Risk Fall in past 12 months (25 points). IV access (20 points). Ambulatory Aid- jd3 None/Bed Rest/Nurse Assist (0 pts). Gait- Normal/Bed Rest/Wheelchair (0 pts) Mental Status- Oriented to own ability (0 pts). Total Diaz Fall Scale indicates High Risk Score (45 or more points). Fall prevention measures have been instituted. Side Rails Up X 2 Placed Close to Nursing Station Frequent Obs/Assessments Occuring Family Present and informed to notify staff if the need to leave the bedside. Primary Survey: 12:30 NO uncontrolled hemorrhage observed. A: The patient only responds to painful stimuli. jd3 Airway: patent, No supplemental oxygen in use on arrival. Oral cavity: clear, Trachea midline. Breathing/Chest: Respiratory pattern: regular, Respiratory effort: spontaneous, unlabored, Chest inspection: symmetrical rise and fall of the chest. Circulation: Cardiac rhythm: ventricular pacer Pulses: palpable right radial artery, right dorsalis pedis artery, left radial artery and left dorsalis pedis artery. Skin color: pale, Skin temperature: diaphoretic. Disability Painful Stimuli. Exposure/Environment: All clothing and personal items were removed. Forensic evidence collection is not deemed to be indicated at this time. Items placed in patient belonging bag. There is no evidence of uncontrolled external bleeding. Obvious injury(ies) are noted at this time: hematoma noted to forehead A warming method has been applied: A warm blanket has been provided to the patient. 13:23 Reassessment Airway Airway Patent Breathing/Chest Respiratory pattern Regular jd3 Respiratory effort Spontaneous Unlabored Chest inspection Symmetrical Circulation Heart rhythm Paced Pulses Palpable Color [place] Disability Alert. Secondary Survey: 12:30 HEENT: Head Other hematoma noted to forehead Nose: blood noted to both nares. no active jd3 bleeding noted. Gastrointestinal: No deficits noted. : No signs and/or symptoms were reported regarding the genitourinary system. Musculoskeletal: No signs and/or symptoms reported regarding the musculoskeletal system. Assessment: 12:30 General: Appears distressed, Behavior is listless. Pain: Unable to use pain scale. jd3 Patient is disoriented. Neuro: Level of Consciousness is awake, confused, responding to painful stimulus. Oriented to none. EENT: Nares blood noted to nares, no sign of active bleeding at this time. Cardiovascular: Capillary refill < 3 seconds Rhythm is ventricular pacer. Respiratory: Airway is patent Respiratory effort is even, unlabored, Respiratory pattern is regular, symmetrical. GI: No signs and/or symptoms were reported involving the gastrointestinal system. Abdomen is round non-distended, Abd is soft and non tender X 4 quads. : No signs and/or symptoms were reported regarding the genitourinary system. Derm: Skin is intact, Skin is diaphoretic, Skin is pale, Skin temperature is cool. 13:00 Reassessment: Patient is alert, oriented x 3, equal unlabored respirations, skin jd3 warm/dry/pink. Patient denies pain at this time. Patient states symptoms have improved. Neuro: Level of Consciousness is awake, alert, obeys commands, Oriented to person, place, time, situation. Cardiovascular: Denies chest pain, Capillary refill < 3 seconds Patient's skin is warm and dry. Rhythm is ventricular pacer. Respiratory: Airway is patent Respiratory effort is even, unlabored, Respiratory pattern is regular, symmetrical, Denies cough, shortness of breath. 13:24 Reassessment: Patient and/or family updated on plan of care and expected duration. Pain jd3 level reassessed. Patient is alert, oriented x 3, equal unlabored respirations, skin warm/dry/pink. talking with at bedside, awaiting results Patient denies pain at this time. 14:09 Reassessment: Patient appears in no apparent distress at this time. Patient and/or jd3 family updated on plan of care and expected duration. Pain level reassessed. Patient is alert, oriented x 3, equal unlabored respirations, skin warm/dry/pink. pt eating sandwich chips and a coke. Patient denies pain at this time. 15:00 Reassessment: Patient appears in no apparent distress at this time. Patient and/or jd3 family updated on plan of care and expected duration. Pain level reassessed. Patient is alert, oriented x 3, equal unlabored respirations, skin warm/dry/pink. Patient denies pain at this time. 16:21 Reassessment: Patient appears in no apparent distress at this time. Patient and/or jd3 family updated on plan of care and expected duration. Pain level reassessed. Patient is alert, oriented x 3, equal unlabored respirations, skin warm/dry/pink. pt drinking juice no report of pain at this time. IV not flushing properly. IV discontinued. attempting another IV start. nothing visualized, awaiting ultrasound availability for ultrasound guided IV attempt. 17:30 Reassessment: Patient appears in no apparent distress at this time. Patient and/or jd3 family updated on plan of care and expected duration. Pain level reassessed. Patient is alert, oriented x 3, equal unlabored respirations, skin warm/dry/pink. awaiting disposition. pt resting in bed, denies any pain at this time. provider at bedside discussing plan of care Patient denies pain at this time. 18:44 Reassessment: Patient appears in no apparent distress at this time. Patient and/or jd3 family updated on plan of care and expected duration. Pain level reassessed. Patient is alert, oriented x 3, equal unlabored respirations, skin warm/dry/pink. awaiting admission. 20:37 Reassessment: Patient appears in no apparent distress at this time. Patient and/or jd3 family updated on plan of care and expected duration. Pain level reassessed. Patient is alert, oriented x 3, equal unlabored respirations, skin warm/dry/pink. report given to Jennifer for ER hold. Vital Signs: 12:47 BP 121 / 78; Pulse 80; Resp 18 S; Pulse Ox 98% on R/A; Weight 77.11 kg (R); Height 5 jd3 ft. 4 in. (162.56 cm) (R); Pain 0/10; 13:18 BP 149 / 89; Pulse 80; Resp 16 S; Temp 98.1(O); Pulse Ox 100% on R/A; Pain 0/10; jd3 14:08 BP 129 / 88; Pulse 81; Resp 17 S; Pulse Ox 100% on R/A; jd3 15:25 BP 146 / 74; Pulse 80; Resp 17 S; Pulse Ox 100% on R/A; jd3 16:22 BP 136 / 81; Pulse 80; Resp 17 S; Pulse Ox 100% on R/A; jd3 17:38 Pulse 80; Resp 17 S; Pulse Ox 100% on R/A; Pain 0/10; jd3 18:45 BP 122 / 79; Pulse 80; Resp 15 S; Pulse Ox 100% on R/A; jd3 20:00 BP 136 / 78; Pulse 80; Resp 17 S; Pulse Ox 100% on R/A; jd3 12:47 Body Mass Index 29.18 (77.11 kg, 162.56 cm) jd3 Horatio Coma Score: 12:30 Eye Response: to pain(2). Verbal Response: confused(4). Motor Response: localizes jd3 pain(5). Total: 11. 13:00 Eye Response: spontaneous(4). Verbal Response: oriented(5). Motor Response: obeys jd3 commands(6). Total: 15. 14:26 Eye Response: to pain(2). Verbal Response: incomprehensible(2). Motor Response: jr8 withdraws from pain(4). Total: 8. 15:26 Eye Response: spontaneous(4). Verbal Response: oriented(5). Motor Response: obeys jd3 commands(6). Total: 15. Trauma Score (Adult): 12:30 Eye Response: to pain(0); Verbal Response: confused(1); Motor Response: localizes jd3 pain(1); Systolic BP: > 89 mm Hg(4); Respiratory Rate: 10 to 29 per min(4); Huyen Score: 11; Trauma Score: 10 13:01 Eye Response: spontaneous(1); Verbal Response: oriented(1); Motor Response: obeys jd3 commands(2); Systolic BP: > 89 mm Hg(4); Respiratory Rate: 10 to 29 per min(4); Huyen Score: 15; Trauma Score: 12 15:26 Eye Response: spontaneous(1); Verbal Response: oriented(1); Motor Response: obeys jd3 commands(2); Systolic BP: > 89 mm Hg(4); Respiratory Rate: 10 to 29 per min(4); Huyen Score: 15; Trauma Score: 12 ED Course: 12:29 Inserted saline lock: 20 gauge in right antecubital area, using aseptic technique. jd3 Blood collected. 12:30 Arm band placed on. EKG completed in triage. Results shown to MD. jd3 12:33 Patient arrived in ED. as 12:40 Malachi Fields PA is PHCP. jr8 12:40 Robe Madrigal MD is Attending Physician. jr8 12:44 Noe Borja RN is Primary Nurse. jd3 12:45 Patient maintains SpO2 saturation greater than 95% on room air. Thermoregulation: warm jd3 blanket given to patient. 12:47 Triage completed. jd3 12:54 CT Head C Spine In Process Unspecified. EDMS 13:01 Patient has correct armband on for positive identification. Placed in gown. Bed in low jd3 position. Call light in reach. Side rails up X2. Adult w/ patient. surveillance monitor on. Pulse ox on. NIBP on. 16:23 IV with fluids not infusing freely, without good blood return, IV discontinued, intact, jd3 bleeding controlled, No redness/swelling at site. Pressure dressing applied. 17:00 Accessed midline placed to the right upper arm. placed by Philipp PETE. jd3 17:25 initiated transfer to [facility], pt was denied due to no beds. bd 17:50 Kirill Sifuentes is Hospitalizing Provider. jr8 18:15 Des Ellison MD is Hospitalizing Provider. jr8 20:32 No provider procedures requiring assistance completed. Patient admitted, IV remains in jd3 place. Administered Medications: 12:29 Drug: D50W 50 ml Route: IVP; Site: right antecubital; jd3 13:20 Follow up: Response: No adverse reaction jd3 17:13 Drug: D5-1/2 NS 1000 ml Route: IV; Rate: 75 ml/hr; Site: right upper arm; jd3 18:00 Follow up: Response: No adverse reaction; IV Status: Infusion continued upon admission jd3 18:35 Drug: morphine 2 mg Route: IVP; Site: right antecubital; zb 19:30 Follow up: Response: No adverse reaction; RASS: Alert and Calm (0) jd3 Point of Care Testing: Blood Glucose: 15:03 Blood Glucose: 72 mg/dL; zb Ranges: Intake: 20:00 PO: 200ml (Juice); Total: 200ml. jd3 Output: 20:00 Urine: 200ml (Voided); Total: 200ml. jd3 Outcome: 17:38 Patient's length of stay in the Emergency Department was greater than 2 hours. due to jd3 waiting on results and dispositionPatient's length of stay extended due to 17:51 Decision to Hospitalize by Provider. jr8 20:34 Admitted to ER Hold. Please see [facility] for further documentation. jd3 20:34 Condition: stable 20:34 Instructed on the need for admit, Demonstrated understanding of instructions. 04/14 15:15 Patient left the ED. iw Signatures: Dispatcher [employer] EDMS Fauzia Hernandez Amelia as Williams, Irene, RN RN iw Malachi Fields PA PA jr8 Noe Borja RN RN jThuy Levy RN RN zderrick Corrections: (The following items were deleted from the chart) 04/13 13:03 12:30 General: Appears distressed, Behavior is unresponsive. jd3 jd3 13:03 12:30 Pain: Unable to use pain scale. Patient is unresponsive. jd3 jd3 13:03 12:30 Neuro: Level of Consciousness is awake, confused, responding to painful stimulus. jd3 Oriented to none jd3 13:03 12:30 Cardiovascular: Capillary refill < 3 seconds Rhythm is atrial pacer jd3 jd3 13:04 12:30 Circulation: Cardiac rhythm: atrial pacer Pulses: palpable right radial artery, jd3 right dorsalis pedis artery, left radial artery and left dorsalis pedis artery. Skin color: pale, Skin temperature: diaphoretic, jd3 13:22 13:18 BP 149 / 89; Pulse 80bpm; Resp 16bpm; Spontaneous; Pulse Ox 100% RA; Pain 0/10; [place] [id number] 16:24 16:21 Reassessment: Patient appears in no apparent distress at this time. Patient suki and/or family updated on plan of care and expected duration. Pain level reassessed. Patient is alert, oriented x 3, equal unlabored respirations, skin warm/dry/pink. pt drinking juice no report of pain at this time [facility] 16:28 16:21 Reassessment: Patient appears in no apparent distress at this time. Patient jd3 and/or family updated on plan of care and expected duration. Pain level reassessed. Patient is alert, oriented x 3, equal unlabored respirations, skin warm/dry/pink. pt drinking juice no report of pain at this time. IV not flushing properly. IV discontinued. attempting another IV start [facility] 20:35 20:34 PO 200, (Juice), Intake Total 200; Urine 200, (Voided), Output Total 200. [place] [id number] 20:35 20:34 BP 136 / 78; Pulse 80bpm; Resp 17bpm; Spontaneous; Pulse Ox 100% RA; [place] [id number] 20:36 20:00 PO 200, (Juice), Intake Total 200; Urine 200, (Voided), Output Total 200. [place] [id number]
[2020-04-13] MEDS ORDERED: MORPHINE 2 MG/ML SYR ONE ×2 (18:45→22:55)
--- NOTE | 2020-04-13 19:04 | P.HP ---
Certification for Inpatient Patient admitted to: Observation With expected LOS: <2 Midnights Patient will require the following post-hospital care: None Practitioner: I am a practitioner with admitting privileges, knowledge of patient current condition, hospital course, and medical plan of care. Services: Services provided to patient in accordance with Admission requirements found in Title 42 Section 412.3 of the Code of Federal Regulations <Rick Hogue - Last Filed: 04/13/20 18:59> Patient History Date of Service: 04/13/20 Primary Care Provider: Dr. Zhang Reason for admission: Hypoglycemia History of Present Illness: 69-year-old female with history of diabetes mellitus type 2-insulin de pendent, chronic kidney disease stage 4, CHF, hypertension, hyperlipidemia presents emergency department for hypoglycemia. Patient reports that she last ate at around 2:00 a.m. in the morning when she had some soup and crackers. Patient then took her long-acting insulin approximately 30 units at 7:00 a.m. along with 13 units of short-acting insulin alongside. Patient was then found on the floor face down, initial blood sugar on arrival to the ED was 23. Patient was given multiple rounds of dextrose IV as well as eating and blood sugar still maintained low around 70-80. Patient placed on D5 half NS at 75 cc/hour the hospitalist group was consulted for admission. When I saw the patient in the emergency department she is awake, alert, oriented x3. Patient with bruising and swelling to face, CT was performed in the ED which was negative for any fractures or other acute findings. Other chronic conditions appears stable, patient was admitted to ICU for q.1 hr blood sugar checks and tell sugar stabilizes at which time she could be downgraded. - Past Medical/Surgical History Diabetic: Yes -: Diabetes mellitus type 2-insulin dependent -: Rheumatoid arthritis -: Hypertension -: Hyperlipidemia -: Chronic congestive heart failure-unknown EF -: Chronic kidney disease stage 4 -: CAD -: L ankle fusion -: hysterectomy -: Dialysis catheter placement and removal Psychosocial/ Personal History: Patient lives with her - Social History Smoking Status: Never smoker Alcohol use: No CD- Drugs: No Caffeine use: Yes Place of Residence: Home <Rick Hogue - Last Filed: 04/13/20 18:59> Date of Service: 04/16/20 - Family History Family History: Reviewed- Non-Contributory <Des Ellison Last Filed: 04/16/20 17:24> Allergies No Known Allergies Allergy (Verified 09/06/13 22:37) Home Medications: Apixaban [Eliquis *] 2.5 mg PO BID 04/14/20 Calcitrol [Rocaltrol*] 0.25 mcg PO DAILY 04/14/20 Cholecalciferol (Vitamin D3) [Vitamin D3] 5,000 unit PO DAILY 04/14/20 Clonidine HCl [Catapres] 0.1 mg PO BEDTIME 04/14/20 Furosemide [Lasix] 80 mg PO BID 04/14/20 Hydralazine HCl [Apresoline] 100 mg PO BID 04/14/20 Insulin Degludec [Tresiba Flextouch U-100] 30 unit SQ DAILY 04/14/20 Insulin Glulisine [Apidra Solostar] 13 unit SQ TID 04/14/20 Isosorbide Mononitrate [Isosorbide Mononitrate ER] 60 mg PO DAILY 04/14/20 Melatonin 10 mg PO DAILY 04/14/20 Potassium Chloride [K-Dur] 10 meq PO BID 04/14/20 Pramipexole [Mirapex*] 1 mg PO BEDTIME 04/14/20 Semaglutide [Ozempic] 0.5 mg SQ SEECOM 04/14/20 Review of Systems 10-point ROS is otherwise unremarkable ENT: Other (Facial pain) <Rick Hogue - Last Filed: 04/13/20 18:59> Physical Examination - Physical Exam General: Alert, In no apparent distress, Oriented x3 HEENT: Normocephalic, PERRLA, Other (Hematoma noted to the scalp area, bruising and swelling around the eyes.) Neck: Supple Respiratory: Clear to auscultation bilaterally, Normal air movement Cardiovascular: No edema, Regular rate/rhythm, Normal S1 S2 Capillary refill: <2 Seconds Gastrointestinal: Normal bowel sounds Musculoskeletal: No contractures, No erythema, No tenderness Integumentary: No significant lesion, No tenderness/swelling, No erythema Neurological: Normal speech, Normal strength at 5/5 x4 extr, Normal tone, Sensation intact - Studies Laboratory Data (last 24 hrs) 04/13/20 13:11: PT 11.9, INR 1.01, APTT 29.6 04/13/20 13:11: Sodium 139, Potassium 3.6, BUN 33 H, Creatinine 2.13 H, Glucose 114 H, Total Bilirubin 0.4, AST 24, ALT 21, Alkaline Phosphatase 150 H 04/13/20 13:11: WBC 9.1, Hgb 13.3, Hct 40.6, Plt Count 365 <Rick Hogue - Last Filed: 04/13/20 18:59> Assessment and Plan - Plan Assessment Diabetes mellitus type 2 with hypoglycemia secondary to accidental overdose of long and short-acting insulin Chronic kidney disease stage 4 Chronic CHF-unknown EF Hypertension Hyperlipidemia CAD Rheumatoid arthritis Plan Diabetes mellitus type 2 with hypoglycemia secondary to accidental overdose of long and short-acting insulin: Continue with hourly blood sugar checks until blood sugar stabilizes, continue D5 half NS at 75 cc/hour. Will transition to a.c. HS Accu-Cheks 1 sugar stabilizes. Continue Eliquis for DVT prophylaxis. Chronic kidney disease stage 4: Creatinine/GFR appears stable this time. Patient reports recently that she had a dialysis catheter placed but it never had to be used, states that her creatinine was as high as 7 at one point but has improved greatly. Chronic CHF-unknown EF: Unknown if systolic or diastolic, patient is receiving IV fluids, continue home medication Lasix. Hypertension: Home medications continued. Hyperlipidemia: Obtain and continue home meds. CAD: Continue home medications including Eliquis. Rheumatoid arthritis: Patient receives Remicade infusions which she had today. Provide p.r.n. pain medications. Discharge Plan: Home Plan to discharge in: 24 Hours - Advance Directives Does patient have a Living Will: No Does patient have a Durable POA for Healthcare: No - Code Status/Comfort Care Code Status Assessed: Yes (DNR) Critical Care: No Time Spent Managing Pts Care (In Minutes): 55 <Rick Hogue - Last Filed: 04/13/20 18:59> - Plan Plan of care discussed with Rick Hogue, and I agree with the management plan as noted above. <Des Ellison - Last Filed: 04/16/20 17:24>
[2020-04-13] MEDS ORDERED: ONDANSETRON 4 MG/2 ML VIAL IV PRN (22:23)
[2020-04-13] MEDS ORDERED: MELATONIN 5 MG TABLET PO PRN (22:23)
[2020-04-13] MEDS: APIXABAN 2.5 MG TABLET PO SCH (22:23)
[2020-04-13] MEDS: HYDRALAZINE HCL 25 MG TABLET PO SCH (22:23)
[2020-04-13] MEDS ORDERED: MORPHINE 2 MG/ML SYR IV PRN (22:23)
[2020-04-13] MEDS ORDERED: HYDROCODONE/APAP 5/325 MG TAB PO PRN (22:23)
[2020-04-13] MEDS: INSULIN -REGULAR HUMAN 50 UNIT/0.5 ML ML SQ SCH (22:23)
[2020-04-13] MEDS ORDERED: D5 0.45 NS 1,000 ML IV SCH (22:23)
[2020-04-13] MEDS ORDERED: APIXABAN 2.5 MG TABLET ONE (23:00)
[2020-04-13] MEDS ORDERED: HYDRALAZINE HCL 25 MG TABLET ONE (23:01)
[2020-04-13 23:21] VITALS: BMI 29.7
[2020-04-14 03:45] LABS: Absolute Lymphocytes (CBC) 2.2 K/uL (0.7-4.9); Basophils % 0.8 % (0-1.3); Hematocrit 35.5 % (36.0-45.0); Lymphocytes % 21.7 % (15.3-44.8); MPV 9.1 fL (7.6-11.3); RBC Red Blood Cell Count 4.24 M/uL (3.86-4.86)
[2020-04-14 03:52] LABS: Potassium 3.8 mmol/L (3.5-5.1)
[2020-04-14] MEDS ORDERED: CYCLOBENZAPRINE 10 MG TAB PO ONE (04:52)
[2020-04-14] MEDS ORDERED: CYCLOBENZAPRINE 10 MG TAB ONE (07:25)
[2020-04-14] MEDS: INSULIN -REGULAR HUMAN 50 UNIT/0.5 ML ML SQ SCH ×2 (07:30→11:30)
[2020-04-14] MEDS ORDERED: INFLUENZA VACCINE (for 3y+) 0.5 ML DOSE IMVAC ONE (08:00)
[2020-04-14] MEDS ORDERED: POTASSIUM CL SA 10 MEQ TAB PO ONE ×2 (09:00→09:52)
[2020-04-14] MEDS ORDERED: FUROSEMIDE 40 MG TABLET PO SCH (09:00)
[2020-04-14] MEDS ORDERED: CALCITROL 0.25 MCG CAP PO SCH (09:00)
[2020-04-14] MEDS: HYDRALAZINE HCL 25 MG TABLET PO SCH (09:44)
[2020-04-14] MEDS: APIXABAN 2.5 MG TABLET PO SCH (09:45)
[2020-04-14] MEDS ORDERED: FUROSEMIDE 40 MG TABLET ONE (09:52)
--- NOTE | 2020-04-14 12:45 | P.DS ---
Admission Date: 04/13/20 Discharge Date: 04/14/20 Primary Care Provider: Dr. Zhagn Disposition: ROUTINE DISCHARGE Discharge Condition: GOOD Reason for Admission: Hypoglycemia Procedures: CT head/c-spine (04/13): Scalp hematoma in the frontal soft tissues with underlying sinus and skull intact. Mild atrophy and mild to moderate chronic ischemic changes are present. No acute intracranial finding. Negative CT cervical spine examination for acute or significant finding. Problem List Diabetes mellitus type 2 with hypoglycemia secondary to accidental overdose of long and short-acting insulin Chronic kidney disease stage 4 Chronic CHF-unknown EF Hypertension Hyperlipidemia CAD Rheumatoid arthritis Brief History of Present Illness: 69yo female, PMH: DM2-insulin dependent, CKD4, CHF, HTN, who presented to ED after episode of hypoglycemia and subsequent fall at home. PAtient reported taking her long and short acting insulin and only ate some soup and crackers. Initial blood glucos on arrival to the ED was 23. She required multiple rounds of IV dextrose to maintain glucose: 70-80. CT head & c-spine were performed and negative for any fractures or other acute findings. Labwork was otherwise unremarkable. Hospital Course: Patient was maintained on D5 1/2 NS and was monitored into the next early afternoon. She felt much better and back to her baseline. She was tolerating her diabetic diet and her glucose was maintained ~140s. She reported a recent increase in her insulin ~4-6 weeks ago from 20 to 30 units long acting and 10 to 13 units short acting with meals. She was instructed to return back to her prior dosing, monitor her glucose levels at home, and f/u with her PCP within 1 week to review. She reported this was the 2nd time she was hospitalized for low blood glucose in the last year. Vital Signs/Physical Exam: Temp Pulse Resp BP Pulse Ox 98 F 80 13 137/70 100 04/14/20 08:00 04/14/20 08:00 04/14/20 08:00 04/14/20 08:00 04/14/20 08:00 General: Alert, In no apparent distress, Oriented x3 HEENT: Other (b/l ecchymosis and swelling of face / periorbital area), Sclerae nonicteric Respiratory: Clear to auscultation bilaterally, Normal air movement Cardiovascular: No edema, Regular rate/rhythm Gastrointestinal: Soft and benign, No tenderness Musculoskeletal: No tenderness Neurological: Normal speech, Normal affect Laboratory Data at Discharge: WBC 10.1 K/uL (4.3-10.9) 04/14/20 03:13 Hgb 11.5 g/dL (12.0-15.0) L 04/14/20 03:13 Hct 35.5 % (36.0-45.0) L 04/14/20 03:13 Plt Count 319 K/uL (152-406) 04/14/20 03:13 PT 11.9 SECONDS (9.5-12.5) 04/13/20 13:11 INR 1.01 04/13/20 13:11 APTT 29.6 SECONDS (24.3-36.9) 04/13/20 13:11 Sodium 139 mmol/L (136-145) 04/14/20 03:13 Potassium 3.8 mmol/L (3.5-5.1) 04/14/20 03:13 BUN 29 mg/dL (7-18) H 04/14/20 03:13 Creatinine 2.01 mg/dL (0.55-1.3) H 04/14/20 03:13 Glucose 167 mg/dL (74-106) H 04/14/20 03:13 Magnesium 2.2 mg/dL (1.8-2.4) 04/14/20 03:13 Total Bilirubin 0.4 mg/dL (0.2-1.0) 04/13/20 13:11 AST 24 U/L (15-37) 04/13/20 13:11 ALT 21 U/L (12-78) 04/13/20 13:11 Alkaline Phosphatase 150 U/L (45-117) H 04/13/20 13:11 Home Medications: Apixaban [Eliquis *] 2.5 mg PO BID 04/14/20 Calcitrol [Rocaltrol*] 0.25 mcg PO DAILY 04/14/20 Cholecalciferol (Vitamin D3) [Vitamin D3] 5,000 unit PO DAILY 04/14/20 Clonidine HCl [Catapres] 0.1 mg PO BEDTIME 04/14/20 Furosemide [Lasix] 80 mg PO BID 04/14/20 Hydralazine HCl [Apresoline] 100 mg PO BID 04/14/20 Insulin Degludec [Tresiba Flextouch U-100] 30 unit SQ DAILY 04/14/20 Insulin Glulisine [Apidra Solostar] 13 unit SQ TID 04/14/20 Isosorbide Mononitrate [Isosorbide Mononitrate ER] 60 mg PO DAILY 04/14/20 Melatonin 10 mg PO DAILY 04/14/20 Potassium Chloride [K-Dur] 10 meq PO BID 04/14/20 Pramipexole [Mirapex*] 1 mg PO BEDTIME 04/14/20 Semaglutide [Ozempic] 0.5 mg SQ SEECOM 04/14/20 Patient Discharge Instructions: Follow up with PCP within 1 week. Reduce your long acting insulin to 20 units (from 30 units) in the morning and short acting to 10 units with meals (From 13 units). Diet: ADA Activity: Ad stefani Followup: NONE,NONE [Primary Care Provider] - Time spent managing pt's care (in minutes): 35
[2020-04-14 12:51] VITALS: BP 140/80; TEMP 98.3
[2020-04-14 17:25] VITALS: O2SAT 100
--- NOTE | 2020-04-14 18:15 | EKG ---
Test Date: 2020-04-13 Test Time: 12:41:12 Trash Hauler: JOSETTE MEASUREMENT RESULTS: Intervals: Rate: 81 HI: 80 QRSD: 156 QT: 476 QTc: 552 [place]: P: 10 HI: 80 QRS: -71 T: 79 INTERPRETIVE STATEMENTS: Sinus rhythm with short HI Left axis deviation Left ventricular hypertrophy with QRS widening Inferior infarct, age undetermined Anterolateral infarct, age undetermined Abnormal ECG Compared to ECG 12/24/2016 03:59:03 Short HI interval now present Uncertain supraventricular rhythm no longer present Early repolarization no longer present Myocardial infarct finding still present Electronically Signed On 04-14-20 18:11:37 OFFICE HELPER CLERICAL by Aakash Ashford
[2020-04-14] MEDS ORDERED: cloNIDine HCL 0.1 MG TAB PO SCH (21:00)
== END 2020-04-14 13:30 | disposition home or self-care (01) ==
LOC: ER 12:26 → ERHOLD 18:51
PROVIDERS: ADMIT Hospitalist; ATTEND Hospitalist
DX: T38.3X1A Poisoning by insulin and oral hypoglycemic [antidiabetic] drugs, accidental (unintentional), initial encounter (principal); E11.649 Type 2 diabetes mellitus with hypoglycemia without coma; E11.22 Type 2 diabetes mellitus with diabetic chronic kidney disease; I13.0 Hypertensive heart and chronic kidney disease with heart failure and stage 1 through stage 4 chronic kidney disease, or unspecified chronic kidney disease; N18.4 Chronic kidney disease, stage 4 (severe); I50.9 Heart failure, unspecified; Z20.828 Contact with and (suspected) exposure to other viral communicable diseases; E78.5 Hyperlipidemia, unspecified; I25.10 Atherosclerotic heart disease of native coronary artery without angina pectoris; M06.9 Rheumatoid arthritis, unspecified; Z79.4 Long term (current) use of insulin; R94.31 Abnormal electrocardiogram [ECG] [EKG]; Z79.01 Long term (current) use of anticoagulants; Z66 Do not resuscitate
CPT/HCPCS: 96361; 93005; 85025 ×2; 80048; 36415; 83735; 85610; 82947 ×11; 85730; 80053; 70450; 72125; 96375; 96374; 99291; 99292; U0002; J2270 ×2; J7799; G0378 ×3; G0390

== ENCOUNTER 2021-07-30 17:16 | Emergency (ER) | payer OTHER ==
--- OUTSIDE RECORDS SUMMARY | 2021-07-30 17:19 | XMS REPORT | Continuity of Care Document ---
:1950 Author Organization [facility] t Address [address] [place] [address] Care Team Providers Name Role Phone Michaela Attending Clinician Unavailable ALEXANDRO Attending Clinician Unavailable MD CATHERINE MC Attending Clinician Unavailable VANDA Attending Clinician Unavailable BHUMI Attending Clinician Unavailable JOSE A Attending Clinician Unavailable BOAZ Attending Clinician Unavailable Michaela Admitting Clinician Unavailable ALEXANDRO Admitting Clinician Unavailable MD CATHERINE MC Admitting Clinician Unavailable BOAZ Admitting Clinician Unavailable Payers Payer Name Policy Type Policy Number Effective Date Expiration Date [employer] [employer] [id number] HEALTH (O) Problems This patient has no known problems. Allergies, Adverse Reactions, Alerts This patient has no known allergies or adverse reactions. Medications This patient has no known medications. Procedures This patient has no known procedures. Encounters Start End Encounter Admission Attending Care Care Encounter Source Date/Time Date/Time Type Type Clinicians Facility Department ID 2021-06-10 2021-06-10 Outpatient [facility] [id number] [place] 00:00:00 00:00:[address] 2021-06-09 2021-06-09 Outpatient Michaela VFP VFP [id number] 02-08 [facility] 11:40:00 11:40:00 [id number] Family Practic e 2021-06-01 2021-06-04 Outpatient ALEXANDRO [facility] [id number] [place] 00:00:00 00:00:00 MAHA [address] 2020-08-05 2020-08-05 Outpatient VANDA [facility] [id number] [place] 00:00:00 00:00:00 , JORGE LUIS [address] 2020-07-09 2020-07-09 Outpatient [facility] [id number] [place] 00:00:00 00:00:[address] 2020-06-18 2020-06-18 Outpatient [facility] [id number] [place] 00:00:00 00:00:[address] 2020-04-05 2020-04-06 Outpatient AL-LAHIQ, [facility]4 [id number] [place] 00:00:00 00:00:00 MAHA [address] 2020-03-22 2020-03-25 Inpatient AL-LAHIQ, [facility]4 [id number] [place] 00:00:00 00:00:00 MAHA [address] 2020-02-27 2020-02-27 Outpatient BHUMI, [facility] [id number] [place] 00:00:00 00:00:00 DAVID [address] 2020-02-17 2020-02-18 Outpatient AL-LAHIQ, [facility]4 [id number] [place] 00:00:00 00:00:00 MAHA [address] 2020-01-17 2020-01-18 Emergency JOSE A, [facility]4 [id number] [place] 00:00:00 00:00:00 SHAKEEL [address] 2019-10-23 2019-10-26 Inpatient AL-LAHIQ, [facility] [id number] [place] 00:00:00 00:00:00 MAHA [address] 2019-08-05 2019-08-05 Outpatient PHUC-MICHAEL [facility] [id number] [place] 00:00:00 00:00:00 , JORGE LUIS [address] 2019-07-10 2019-07-12 Inpatient AL-LAHIQ, [facility] [id number] [place] 00:00:00 00:00:00 MAHA [address] 2019-03-27 2019-03-30 Outpatient TEQWIMDORIS, [facility] [id number] [place] 00:00:00 00:00:00 SARAI [address] Results Test Description Test Time Test Comments Results Result Comments Source SARS-CoV-2 (COVID-19) RNA [Presence] in Respiratory sp ecimen by 2021-06-02 11:45:59 LANG with probe detection Test Item Value Reference Range Interpretation Comme nts SARS-CoV-2 (COVID-19) RNA [Presence] in Respiratory Not detected No t-Detected specimen by LANG with probe detection (test code = 39971-1) Whether patient is employed in a healthcare setting (test code = 97896-9) Whether the patient has symptoms related to condition of interest (test code = 45538-9) Patient was hospitalized because of this condition (test code = 10152-5) Whether the patient was admitted to intensive care unit (ICU) for condition of interest (test code = 40522-3) Whether patient resides in a congregate care setting (test code = 85950-0) SARS-CoV-2 (COVID-19) RNA [Presence] in Respiratory specimen by LANG with probe [id number] 05:28:15 Test Item Value Reference Range Interpretation Comments SARS-CoV-2 (COVID-19) RNA Not detected Not-Detected [Presence] in Respiratory specimen by LANG with probe detection (test code = 65110-2) SARS-CoV-2 (COVID-19) RNA [Presence] in Respiratory specimen by LANG with probe [id number] 23:52:31 Test Item Value Reference Range Interpretation Comments SARS-CoV-2 (COVID-19) RNA Not detected Not-Detected [Presence] in Respiratory specimen by LANG with probe detection (test code = 47359-9)
[2021-07-30] MEDS ORDERED: LEVALBUTEROL 1.25 MG/3 ML NEB ONE ×2 (18:45→19:11)
[2021-07-30] MEDS ORDERED: FUROSEMIDE 20 MG/ 2ML VIAL ONE (18:45)
[2021-07-30 19:08] LABS: Absolute Lymphocytes (CBC) 1.6 K/uL (0.7-4.9); Hematocrit 34.3 % (36.0-45.0); Lymphocytes % 18.1 % (15.3-44.8); MPV 7.9 fL (7.6-11.3); RBC Red Blood Cell Count 4.01 M/uL (3.86-4.86)
--- NOTE | 2021-07-30 19:11 | RAD REPORT ---
EXAM DESCRIPTION: Bernabe Single View07/30/2021 7:02 pm CLINICAL HISTORY: sob COMPARISON: 2017 FINDINGS: Heart is moderately enlarged. Moderate bilateral pulmonary opacities. Pacemaker leads in place IMPRESSION: These findings probably indicate CHF
[2021-07-30 19:28] LABS: Protime INR 0.99
[2021-07-30 19:53] LABS: Albumin 2.9 g/dL (3.4-5.0); Bilirubin Direct 0.2 mg/dL (0-0.2); Bilirubin Total 0.4 mg/dL (0.2-1.0); Protein, Total 7.4 g/dL (6.4-8.2)
[2021-07-30 20:38] LABS: SARS-COV-2 RT PCR NEGATIVE (NEGATIVE)
[2021-07-30 20:59] LABS: Troponin High Sensitivity 67.2 pg/mL (<58.9)
--- NOTE | 2021-07-31 00:42 | EDPHYS ---
Physician Documentation [facility] Name: Latricia Cadet Age: 70 yrs Sex: Female : 1950 Arrival Date: 07/30/2021 Time: 17:20 Bed 18 Private MD: ED Physician Rico Romo HPI: 07/30 18:05 This 70 yrs old Female presents to ER via EMS with complaints of Shortness Of Breath. jmm 18:05 The patient has shortness of breath at rest. Onset: The symptoms/episode began/occurred jmm gradually, 2 day(s) ago. Duration: The symptoms are continuous, and are steadily getting worse. The patient's shortness of breath is aggravated by nothing, is alleviated by nothing. Associated signs and symptoms: Pertinent positives: chest pain. This is a 70-year-old female with history of CHF, hypertension, diabetes mellitus that presents emerged department with complaints of progressively worsening shortness of breath over the past 2 days. Patient also complains of ongoing chest pain.. Historical: - Allergies: 17:44 No Known Allergies; ww - Home Meds: 17:44 pramipexole 1 mg Oral tab [Active]; isosorbide mononitrate 60 mg Oral Tb24 [Active]; ww digoxin 125 mcg Oral tab [Active]; clonidine HCl 0.1 mg Oral tab [Active]; calcitriol 0.25 mcg oral cap 1 cap [Active]; metoprolol tartrate 100 mg Oral tab 1 tab 2 times per day [Active]; Lantus U-100 Insulin 100 unit/mL Sub-Q crtg [Active]; insulin [Active]; bumetanide 1 mg Oral tab 1 tab once daily [Active]; Lexapro 10 mg Oral tab 1 tab once daily [Active]; budesonide 3 mg oral CECX 3 caps once daily [Active]; Eliquis 2.5 mg oral tab 1 tab 2 times per day [Active]; - PMHx: 17:44 CHF; Hypertension; Diabetes - NIDDM; insomnia; kidney disease; Rheumatoid Arthritis; ww - Immunization history:: Adult Immunizations up to date. - Social history:: Smoking status: Patient denies any tobacco usage or history of. ROS: 18:05 Constitutional: Negative for fever, chills, and weight loss. jmm 18:05 Cardiovascular: Positive for chest pain. 18:05 Respiratory: Positive for shortness of breath. 18:05 All other systems are negative. Exam: 18:05 Head/Face: atraumatic. Eyes: EOMI, no conjunctival erythema appreciated ENT: Moist [facility] Mucus Membranes Neck: Trachea midline, Supple Chest/axilla: Normal chest wall appearance and motion. Cardiovascular: Regular rate and rhythm. No edema appreciated 18:05 Abdomen/GI: Non distended, soft Back: Normal ROM Skin: General appearance color normal MS/ Extremity: Moves all extremities, no obvious deformities appreciated, no edema noted to the lower extremities Neuro: Awake and alert Psych: Behavior is normal, Mood is normal, Patient is cooperative and pleasant 18:05 Constitutional: The patient appears alert, awake, anxious, uncomfortable. 18:05 Respiratory: mild respiratory distress is noted, Respirations: labored breathing, that is moderate, Breath sounds: rales. Vital Signs: 17:37 BP 186 / 79; Pulse 80; Resp 28; Temp 98.3; Pulse Ox 90% on R/A; Weight 78.47 kg; Height 5 ft. 4 in. (162.56 cm); Pain 2/10; 18:55 BP 184 / 83; Pulse 80; Resp 29; Pulse Ox 98% on 2 lpm NC; ww 19:00 BP 184 / 83; Pulse 80; Resp 27; Pulse Ox 100% ; vc1 21:30 BP 182 / 60; Pulse 80; Resp 20; Pulse Ox 98% on R/A; vc1 23:00 BP 187 / 65; Pulse 80; Resp 18; Pulse Ox 98% on R/A; vc1 0312 00:00 BP 196 / 80; Pulse 80; Resp 26; Pulse Ox 98% on R/A; vc1 01:00 BP 214 / 101; Pulse 80; Resp 27; Pulse Ox 98% on R/A; vc1 01:11 BP 213 / 104; Pulse 90; Resp 23; Pulse Ox 100% on R/A; vc1 01:30 BP 209 / 91; Pulse 80; Resp 19; Pulse Ox 100% ; vc1 02:00 BP 201 / 69; Pulse 80; Resp 20; Pulse Ox 97% on R/A; vc1 07/30 17:37 Body Mass Index 29.70 (78.47 kg, 162.56 cm) MDM: 07/30 18:05 Patient medically screened. [facility] 07/31 00:41 Data reviewed: vital signs, nurses notes. Counseling: I had a detailed discussion with turner the patient and/or guardian regarding: the historical points, exam findings, and any diagnostic results supporting the discharge/admit diagnosis, lab results, radiology results, the need to transfer to another facility. ED course: Repeat troponin is elevated from previous. I discussed the patient with the Dr. Dumont nurse practitioner whom accepted the patient to her service.. 07/30 18:06 Order name: Basic Metabolic Panel; Complete Time: 20:59 [facility] 07/30 18:06 Order name: CBC with Diff; Complete Time: 19:40 [facility] 07/30 18:06 Order name: LFT's; Complete Time: 20:59 [facility] 07/30 18:06 Order name: Magnesium; Complete Time: 20:59 [facility] 07/30 18:06 Order name: NT PRO-BNP; Complete Time: 20:59 [facility] 07/30 18:06 Order name: PT-INR; Complete Time: 19:40 [facility] 07/30 18:06 Order name: Troponin HS; Complete Time: 20:59 [facility] 07/30 18:06 Order name: XRAY Chest (1 view); Complete Time: 19:13 [facility] 07/30 18:07 Order name: COVID-19/FLU A+B (Document "Date of Onset" if Symptomatic); Complete Time: [facility] 20:40 07/30 23:09 Order name: Troponin High Sensitivity; Complete Time: 00:13 vc1 07/30 18:06 Order name: EKG; Complete Time: 18:10 [facility] 07/30 18:06 Order name: Cardiac monitoring; Complete Time: 18:18 [facility] 07/30 18:06 Order name: EKG - Nurse/Tech; Complete Time: 18:54 [facility] 07/30 18:06 Order name: IV Saline Lock; Complete Time: 18:54 [facility] 07/30 18:06 Order name: Labs collected and sent; Complete Time: 18:54 [facility] 07/30 18:06 Order name: O2 Per Protocol; Complete Time: 18:18 [facility] 07/30 18:06 Order name: O2 Sat Monitoring; Complete Time: 18:18 [facility] Administered Medications: 07/30 18:53 Drug: Lasix (furosemide) 20 mg Route: IVP; Site: right antecubital; ww 19:00 Follow up: BP 184 / 83; Pulse 80 bpm; Resp 27 bpm; Pulse Ox 100% ; Response: No adverse vc1 reaction; Marked relief of symptoms 19:10 Drug: Xopenex (levalbuterol) (3) 1.25 mg Route: Inhalation; ww 03 01:10 Drug: morphine 2 mg Route: IVP; Site: right antecubital; vc1 01:11 Follow up: BP 213 / 104; Pulse 90 bpm; Resp 23 bpm; Pulse Ox 100% RA vc1 01:10 Drug: Aspirin Chewable Tablet 324 mg Route: PO; vc1 02:14 Follow up: Response: No adverse reaction vc1 01:14 Drug: Nitrostat (nitroglycerin) 0.4 mg Route: Sublingual; vc1 01:30 Follow up: BP 209 / 91; Pulse 80 bpm; Resp 19 bpm; Pulse Ox 100% ; Response: No adverse vc1 reaction; Marked relief of symptoms; Pain is decreased 01:21 Drug: Xopenex (levalbuterol) (3) 1.25 mg Route: Inhalation; vc1 Disposition Summary: 07/31/21 00:42 Transfer Ordered Transfer Location: [facility] Reason: Higher level of care [facility] Condition: Stable jm Problem: an acute exacerbation jmm Symptoms: have improved jmm Accepting Physician: Tim(07/31/21 02:32) vc1 Diagnosis - 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
--- NOTE | 2021-07-31 00:42 | ER ---
Nurse's Notes [facility] Name: Latricia Cadet Age: 70 yrs Sex: Female : 1950 Arrival Date: 07/30/2021 Time: 17:20 Bed 18 Private MD: Diagnosis: Acute on chronic combined systolic (congestive) and diastolic (congestive) heart failure Presentation: 07/30 17:37 Chief complaint: Patient states: Shortness of breath that started this morning while ww working in the garden and has progressively gotten worse through out the day. EMS stated her BP was elevated at 220/110 on arrival. Coronavirus screen: Vaccine status: Patient reports receiving the 2nd dose of the covid vaccine. Client denies travel out of the [place] in the last 14 days. Ebola Screen: Patient denies travel to an Ebola-affected area in the 21 days before illness onset. Initial Sepsis Screen: Does the patient meet any 2 criteria? RR > 20 per min. No. Patient's initial sepsis screen is negative. Does the patient have a suspected source of infection? No. Patient's initial sepsis screen is negative. Risk Assessment: Do you want to hurt yourself or someone else? Patient reports no desire to harm self or others. Onset of symptoms was July 30, 2021. 17:37 Method Of Arrival: EMS: [facility] ww 17:37 Acuity: JAKE 3 ww Triage Assessment: 17:44 General: Appears uncomfortable, Behavior is cooperative. Pain: Denies pain. EENT: No ww signs and/or symptoms were reported regarding the EENT system. Neuro: Level of Consciousness is awake, alert, obeys commands, Oriented to person, place, time, situation, Speech is normal. Cardiovascular: Capillary refill < 3 seconds is sluggish Patient's skin is warm and dry. Rhythm is Chest pain. Respiratory: Airway is patent Respiratory effort is labored, Respiratory pattern is regular, symmetrical, Breath sounds with crackles. GI: No signs and/or symptoms were reported involving the gastrointestinal system. Abdomen is non-distended, Abd is soft and non tender X 4 quads. Derm: Skin is intact. Musculoskeletal:. Historical: - Allergies: 17:44 No Known Allergies; ww - Home Meds: 17:44 pramipexole 1 mg Oral tab [Active]; isosorbide mononitrate 60 mg Oral Tb24 [Active]; ww digoxin 125 mcg Oral tab [Active]; clonidine HCl 0.1 mg Oral tab [Active]; calcitriol 0.25 mcg oral cap 1 cap [Active]; metoprolol tartrate 100 mg Oral tab 1 tab 2 times per day [Active]; Lantus U-100 Insulin 100 unit/mL Sub-Q crtg [Active]; insulin [Active]; bumetanide 1 mg Oral tab 1 tab once daily [Active]; Lexapro 10 mg Oral tab 1 tab once daily [Active]; budesonide 3 mg oral CECX 3 caps once daily [Active]; Eliquis 2.5 mg oral tab 1 tab 2 times per day [Active]; - PMHx: 17:44 CHF; Hypertension; Diabetes - NIDDM; insomnia; kidney disease; Rheumatoid Arthritis; ww - Immunization history:: Adult Immunizations up to date. - Social history:: Smoking status: Patient denies any tobacco usage or history of. Screenin:49 Abuse screen: Denies threats or abuse. Denies injuries from another. Nutritional ww screening: No deficits noted. Tuberculosis screening: No symptoms or risk factors identified. Fall Risk None identified. Assessment: 17:49 Reassessment: see triage assessment. ww 18:55 Reassessment: Patient appears in no apparent distress at this time. No changes from ww previously documented assessment. Patient and/or family updated on plan of care and expected duration. Pain level reassessed. Patient is alert, oriented x 3, equal unlabored respirations, skin warm/dry/pink. 19:30 General: Appears comfortable, obese, Behavior is calm, cooperative, appropriate for vc1 age. Neuro: Level of Consciousness is awake, alert, obeys commands, Oriented to person, place, time, situation, Appropriate for age. Cardiovascular: Patient's skin is warm and dry. Edema. Respiratory: Airway is patent Respiratory effort is even, unlabored, Respiratory pattern is regular, symmetrical. 20:30 Reassessment: Patient and/or family updated on plan of care and expected duration. Pain vc1 level reassessed. Patient is alert, oriented x 3, equal unlabored respirations, skin warm/dry/pink. 23:00 Reassessment: No changes from previously documented assessment. Patient and/or family vc1 updated on plan of care and expected duration. Pain level reassessed. Patient is alert, oriented x 3, equal unlabored respirations, skin warm/dry/pink. 07/31 00:00 Reassessment: No changes from previously documented assessment. Patient and/or family vc1 updated on plan of care and expected duration. Pain level reassessed. Patient is alert, oriented x 3, equal unlabored respirations, skin warm/dry/pink. 01:05 Reassessment: Patient complaining of chest pain that radiates to her back, respirations vc1 increased and labored. Provider notified. 01:05 Cardiovascular: Reports chest pain, diaphoresis, shortness of breath. Respiratory: vc1 Airway is patent Respiratory effort is labored, Respiratory pattern is tachypnea. 01:30 Reassessment: Patient and/or family updated on plan of care and expected duration. Pain vc1 level reassessed. Patient is alert, oriented x 3, equal unlabored respirations, skin warm/dry/pink. Patient states feeling better. Patient states symptoms have improved. Cardiovascular: Denies chest pain. 01:55 Reassessment: Report given to receiving nurse at [facility]. vc1 02:19 Reassessment: Patient placed on stretcher, 20G in right arm patent, respirations even vc1 and unlabored, no complaints of pain at this time. Vital Signs: 07/30 17:37 BP 186 / 79; Pulse 80; Resp 28; Temp 98.3; Pulse Ox 90% on R/A; Weight 78.47 kg; Height ww 5 ft. 4 in. (162.56 cm); Pain 2/10; 18:55 BP 184 / 83; Pulse 80; Resp 29; Pulse Ox 98% on 2 lpm NC; ww 19:00 BP 184 / 83; Pulse 80; Resp 27; Pulse Ox 100% ; vc1 21:30 BP 182 / 60; Pulse 80; Resp 20; Pulse Ox 98% on R/A; vc1 23:00 BP 187 / 65; Pulse 80; Resp 18; Pulse Ox 98% on R/A; vc1 12 00:00 BP 196 / 80; Pulse 80; Resp 26; Pulse Ox 98% on R/A; vc1 01:00 BP 214 / 101; Pulse 80; Resp 27; Pulse Ox 98% on R/A; vc1 01:11 BP 213 / 104; Pulse 90; Resp 23; Pulse Ox 100% on R/A; vc1 01:30 BP 209 / 91; Pulse 80; Resp 19; Pulse Ox 100% ; vc1 02:00 BP 201 / 69; Pulse 80; Resp 20; Pulse Ox 97% on R/A; vc1 07/30 17:37 Body Mass Index 29.70 (78.47 kg, 162.56 cm) ED Course: 07/30 17:20 Patient arrived in ED. em1 17:28 Yeison Piper PA is PHCP. m 17:28 Rico Romo MD is Attending Physician. [facility] 17:37 Justyna Seo, RN is Primary Nurse. ww 17:39 Triage completed. ww 17:44 Arm band placed on right wrist. ww 17:49 Patient has correct armband on for positive identification. Bed in low position. Call ww light in reach. Side rails up X 1. foot piece assembler on. Pulse ox on. NIBP on. 18:50 Initial lab(s) drawn, by sd, sent to lab. EKG done, COVID swab sent to lab. Flu and/or ww RSV swab sent to lab. Inserted saline lock: 20 gauge in right antecubital area, using aseptic technique. Blood collected. 19:02 XRAY Chest (1 view) In Process Unspecified. EDMS 19:22 Primary Nurse role handed off by Justyna Seo, RN vc1 19:22 Carol Baldwin, JUAN R is Primary Nurse. 1 22:51 initiated a transfer with Darcy from [facility]. [facility] 07/31 00:46 administrative approval given by Sierra Fuentes/ patient has been accepted to [address] Bed 325/ Dr. Dumont accepted the patient in transfer/report to be called to [phone]. 02:18 No provider procedures requiring assistance completed. Patient transferred, IV remains vc1 in place. Administered Medications: 07/30 18:53 Drug: Lasix (furosemide) 20 mg Route: IVP; Site: right antecubital; ww 19:00 Follow up: BP 184 / 83; Pulse 80 bpm; Resp 27 bpm; Pulse Ox 100% ; Response: No adverse vc1 reaction; Marked relief of symptoms 19:10 Drug: Xopenex (levalbuterol) (3) 1.25 mg Route: Inhalation; ww 03/12 01:10 Drug: morphine 2 mg Route: IVP; Site: right antecubital; vc1 01:11 Follow up: BP 213 / 104; Pulse 90 bpm; Resp 23 bpm; Pulse Ox 100% RA vc1 01:10 Drug: Aspirin Chewable Tablet 324 mg Route: PO; vc1 02:14 Follow up: Response: No adverse reaction vc1 01:14 Drug: Nitrostat (nitroglycerin) 0.4 mg Route: Sublingual; vc1 01:30 Follow up: BP 209 / 91; Pulse 80 bpm; Resp 19 bpm; Pulse Ox 100% ; Response: No adverse vc1 reaction; Marked relief of symptoms; Pain is decreased 01:21 Drug: Xopenex (levalbuterol) (3) 1.25 mg Route: Inhalation; vc1 Outcome: 00:42 ER care complete, transfer ordered by MD. palacios 02:19 Transferred to [facility], Transfer form completed. X-rays sent w/ patient. vc1 02:19 Condition: good 02:19 Instructed on the need for transfer. 02:32 Patient left the ED. vc1 Signatures: Dispatcher [employer] EDMS Yeison Piper PA PA jmm Martinez, Eric em1 Jamel Finnegan mw2 Justyna Seo RN RN Carol Baldwin RN RN vc1 Corrections: (The following items were deleted from the chart) 07/30 23:32 19:30 General: Appears in no apparent distress. comfortable, obese, Behavior is calm, vc1 cooperative, appropriate for age, vc1 23:32 20:30 Reassessment: Patient appears in no apparent distress at this time. Patient vc1 and/or family updated on plan of care and expected duration. Pain level reassessed. Patient is alert, oriented x 3, equal unlabored respirations, skin warm/dry/pink. vc1 07/31 02:06 0311 23:32 BP 104 / 83; Pulse 80 bpm; Resp 20 bpm; Pulse Ox 100% ; Response: No vc1 adverse reaction; Marked relief of symptoms vc1 07/31 02:16 02:00 BP 201 / 89; Pulse 80bpm; Resp 20bpm; Pulse Ox 97% RA; vc1 vc1
[2021-07-31] MEDS ORDERED: LEVALBUTEROL 1.25 MG/3 ML NEB ONE (00:55)
[2021-07-31] MEDS ORDERED: ASPIRIN 81 MG CHEWABLE TABLET ONE (01:06)
[2021-07-31] MEDS ORDERED: MORPHINE 2 MG/ML SYR ONE (01:08)
[2021-07-31] MEDS ORDERED: NITROGLYCERIN 0.4 MG/TAB SL ONE (01:15)
[2021-07-31 03:04] VITALS: TEMP 98.3
[2021-07-31 03:15] VITALS: BP 201/69; O2SAT 97
--- NOTE | 2021-08-01 10:12 | EKG ---
Test Date: 2021-07-31 Test Time: 01:03:40 [place]: ALEJANDRO MEASUREMENT RESULTS: Intervals: Rate: 80 DE: QRSD: 142 QT: 418 QTc: 482 [place]: P: DE: QRS: -77 T: 97 INTERPRETIVE STATEMENTS: paced rhythm Left axis deviation Nonspecific intraventricular block Possible Lateral infarct, age undetermined Inferior infarct, age undetermined T wave abnormality, consider anterior ischemia Abnormal ECG Electronically Signed On 08-01-21 10:11:35 CDT by Aakash Ashford
== END 2021-07-31 02:32 | disposition short-term general hospital (02) ==
LOC: ER 17:16
DX: I50.43 Acute on chronic combined systolic (congestive) and diastolic (congestive) heart failure (principal); E11.9 Type 2 diabetes mellitus without complications; I10 Essential (primary) hypertension; Z79.01 Long term (current) use of anticoagulants; Z79.4 Long term (current) use of insulin; Z20.822 Contact with and (suspected) exposure to COVID-19
CPT/HCPCS: 93005 ×2; 85025; 80048; 36415; 83735; 85610; 80076; 84484 ×2; 83880; 0240U; 71045; 96375; 96374; 99285; J1940; J2270

== ENCOUNTER 2021-08-21 21:20 | Emergency (ER) | payer OTHER ==
--- OUTSIDE RECORDS SUMMARY | 2021-08-21 22:26 | XMS REPORT | Continuity of Care Document ---
:1950 Author Organization [facility] t Address [address] [place] [address] Care Team Providers Name Role Phone BAKARI Attending Clinician Unavailable MD ELIZABETH KYLE Attending Clinician Unavailable Michaela Attending Clinician Unavailable ALEXANDRO Attending Clinician Unavailable MD CATHERINE MC Attending Clinician Unavailable VANDA Attending Clinician Unavailable BHUMI Attending Clinician Unavailable JOSE A Attending Clinician Unavailable BOAZ Attending Clinician Unavailable SAROJ Admitting Clinician Unavailable Michaela Admitting Clinician Unavailable ALEXANDRO Admitting Clinician Unavailable MD CATHERINE MC Admitting Clinician Unavailable BOAZ Admitting Clinician Unavailable Payers Payer Name Policy Type Policy Number Effective Date Expiration Date S gus [facility] [id number] 2021 [facility] 00[facility]00:00 [facility] [id number] [facility] Problems This patient has no known problems. Allergies, Adverse Reactions, Alerts This patient has no known allergies or adverse reactions. Medications This patient has no known medications. Procedures This patient has no known procedures. Encounters Start End Encounter Admission Attending Care Care Encounter Source Date/Time Date/Time Type Type Clinicians Facility Department ID 2021-08-11 Outpatient [facility] [id number] [place] 09:26:19 [id number] [facility] 2021-07-31 2021-08-13 [facility] [id number] [place] 00:00:00 00:00:00 ANNA[facility] 2021-06-10 2021-06-10 Outpatient [facility] [id number] 410 [place] 00:00:00 00:00:[address] 2021-06-09 2021-06-09 Outpatient Michaela [facility] [id number] [address] 11:40:00 11:40:00 [id number] [facility] Pract[facility] 2021-06-01 2021-06-04 Outpatient AL-LAHIQ, [facility] 064 [id number] [place] 00:00:00 00:00:00 MAHA [address] 2020-08-05 2020-08-05 Outpatient VANDA [facility] [id number] [place] 00:00:00 00:00:00 , JORGE LUIS [address] 2020-07-09 2020-07-09 Outpatient [facility] [id number] 034 [place] 00:00:00 00:00:[address] 2020-06-18 2020-06-18 Outpatient [facility] [id number] 844 [place] 00:00:00 00:00:[address] 2020-04-05 2020-04-06 Outpatient AL-LAHIQ, [facility]4 [id number] [place] 00:00:00 00:00:00 MAHA [address] 2020-03-22 2020-03-25 Inpatient AL-LAHIQ, [facility]4 [id number] [place] 00:00:00 00:00:00 MAHA [address] 2020-02-27 2020-02-27 Outpatient TRIPATHI, [facility] [id number] [place] 00:00:00 00:00:00 DAVID [address] 2020-02-17 2020-02-18 Outpatient AL-LAHIQ, [facility]4 [id number] [place] 00:00:00 00:00:00 MAHA [address] 2020-01-17 2020-01-18 Emergency JOSE A, [facility] 064 [id number] 46 [place] 00:00:00 00:00:00 SHAKEEL [address] 2019-10-23 2019-10-26 Inpatient AL-LAHIQ, [facility] 064 [id number] [place] 00:00:00 00:00:00 MAHA [address] 2019-08-05 2019-08-05 Outpatient VANDA [facility] [id number] [place] 00:00:00 00:00:00 , JORGE LUIS [address] 2019-07-10 2019-07-12 Inpatient AL-LAHIQ, [facility] [id number] [place] 00:00:00 00:00:00 MAHA [address] 2019-03-27 2019-03-30 Outpatient BOAZ, [facility] [id number] [place] 00:00:00 00:00:00 SARAI [address] Results Test Description Test Time Test Comments Results Result Comments Source SARS-CoV-2 (COVID-19) RNA [Presence] in Respiratory sp ecimen by 2021-08-12 13:39:12 LANG with probe detection Test Item Value Reference Range Interpretation Comme nts SARS-CoV-2 (COVID-19) RNA [Presence] in Respiratory specimen by Not detected LANG with probe detection (test code = 51384-9) Whether patient is employed in a healthcare setting (test code = Un known 77616-8) Whether the patient has symptoms related to condition of interest U nknown (test code = 79140-3) Whether the patient was hospitalized for condition of interest Unkn own (test code = 84938-6) Whether the patient was admitted to intensive care unit (ICU) for U nknown condition of interest (test code = 30657-9) Whether patient resides in a congregate care setting (test code = U nknown 96658-3) status (test code = 46340-3) Unknown Date and time of symptom onset (test code = 96511-6) Unknown SARS-CoV-2 (COVID-19) RNA [Presence] in Respiratory specimen by LANG with probe [id number] 23:11:03 Test Item Value Reference Range Interpretation Comments SARS-CoV-2 (COVID-19) RNA Not detected [Presence] in Respiratory specimen by LANG with probe detection (test code = 23431-5) Whether patient is employed in a Unknown healthcare setting (test code = 02516-0) Whether the patient has symptoms Unknown related to condition of interest (test code = 44540-3) Whether the patient was Unknown hospitalized for condition of interest (test code = 53811-7) Whether the patient was admitted Unknown to intensive care unit (ICU) for condition of interest (test code = 75056-7) Whether patient resides in a Unknown congregate care setting (test code = 71109-7) status (test code = Unknown 23273-0) Date and time of symptom onset Unknown (test code = 76480-5) SARS-CoV-2 (COVID-19) RNA [Presence] in Respiratory specimen by LANG with probe [id number] 11:45:59 Test Item Value Reference Range Interpretation Comments SARS-CoV-2 (COVID-19) RNA Not detected Not-Detected [Presence] in Respiratory specimen by LANG with probe detection (test code = 79097-5) Whether patient is employed in a healthcare setting (test code = 62266-4) Whether the patient has symptoms related to condition of interest (test code = 95516-4) Patient was hospitalized because of this condition (test code = 77541-4) Whether the patient was admitted to intensive care unit (ICU) for condition of interest (test code = 62908-2) Whether patient resides in a congregate care setting (test code = 57788-5) SARS-CoV-2 (COVID-19) RNA [Presence] in Respiratory specimen by LANG with probe [id number] 05:28:15 Test Item Value Reference Range Interpretation Comments SARS-CoV-2 (COVID-19) RNA Not detected Not-Detected [Presence] in Respiratory specimen by LANG with probe detection (test code = 06205-7) SARS-CoV-2 (COVID-19) RNA [Presence] in Respiratory specimen by LANG with probe [id number] 23:52:31 Test Item Value Reference Range Interpretation Comments SARS-CoV-2 (COVID-19) RNA Not detected Not-Detected [Presence] in Respiratory specimen by LANG with probe detection (test code = 47596-8)
--- NOTE | 2021-08-21 22:51 | EDPHYS ---
Physician Documentation [facility] Name: Latricia Cadet Age: 70 yrs Sex: Female : 1950 Arrival Date: 08/21/2021 Time: 21:23 Bed 5 Private MD: ED Physician Jef Quintero HPI: 08/21 21:51 This 70 yrs old Female presents to ER via Wheelchair with complaints of High Blood pm1 Sugar. 21:51 The patient or guardian reports hyperglycemia, that was potentially precipitated by pm1 unknown. Onset: The symptoms/episode began/occurred today. Associated signs and symptoms: Pertinent positives: Dizziness, Pertinent negatives: diarrhea, nausea, vomiting, Chest pain, shortness of breath. Current symptoms: In the emergency department the patient's symptoms have improved. Patient with dialysis treatment today with 4L pulled off. Patient reports blood sugar level in the 170s this AM and then 330s around 1999. Patient reports dizziness with her elevated blood sugar. Historical: - Allergies: 21:50 No Known Allergies; ld1 - PMHx: 21:50 CHF; Diabetes - NIDDM; Hypertension; insomnia; kidney disease; Rheumatoid Arthritis; ld1 Heart attack; - PSHx: 21:50 Hysterectomy; ld1 - Immunization history:: Adult Immunizations up to date, Client reports receiving the 2nd dose of the Covid vaccine. - Social history:: Smoking status: Patient denies any tobacco usage or history of. Patient/guardian denies using alcohol. ROS: 21:51 Constitutional: Negative for fever, chills, and weight loss, Cardiovascular: Negative pm1 for chest pain, palpitations, and edema, Respiratory: Negative for shortness of breath, cough, wheezing, and pleuritic chest pain, Abdomen/GI: Negative for abdominal pain, nausea, vomiting, diarrhea, and constipation, MS/Extremity: Negative for injury and deformity, Skin: Negative for injury, rash, and discoloration, Neuro: Negative for headache, weakness, numbness, tingling, and seizure. 21:51 All other systems are negative. Exam: 21:51 Constitutional: This is a well developed, well nourished patient who is awake, alert, pm1 and in no acute distress. Head/Face: Normocephalic, atraumatic. 21:51 Back: No spinal tenderness. No costovertebral tenderness. Full range of motion. Skin: Warm, dry with normal turgor. Normal color with no rashes, no lesions, and no evidence of cellulitis. MS/ Extremity: Pulses equal, no cyanosis. Neurovascular intact. Full, normal range of motion. 21:51 Cardiovascular: Exam negative for acute changes, Rate: normal, Rhythm: regular, Pulses: no pulse deficits are appreciated, Heart sounds: normal, normal S1and S2. 21:51 Respiratory: Exam negative for acute changes, respiratory distress, shortness of breath, Breath sounds: are clear throughout. 21:51 Abdomen/GI: Inspection: abdomen appears normal, Palpation: abdomen is soft and non-tender, in all quadrants. 21:51 Neuro: Exam negative for acute changes, Orientation: is normal, Mentation: is normal, Motor: is normal, moves all fours. Vital Signs: 21:48 BP 118 / 73; Pulse 80; Resp 18; Temp 97.6(TE); Pulse Ox 98% on R/A; Weight 77.56 kg; ld1 Height 5 ft. 4 in. (162.56 cm); Pain 0/10; 21:48 Body Mass Index 29.35 (77.56 kg, 162.56 cm) ld1 MDM: 21:52 Patient medically screened. pm1 22:41 Refusal of service: The patient/guardian displays adequate decision making capability pm1 and despite a detailed discussion of alternatives, benefits, risks, and consequences refuses: all lab tests, Patient does not want to wait for the rest of her labs. Patient reports feeling better with her glucose level lowering and would like to go home to rest. Patient's supports her decision and is ready to take her home. 22:46 Data reviewed: vital signs. Data interpreted: Pulse oximetry: on room air is 98 %. pm1 Interpretation: normal. 22:50 Counseling: I had a detailed discussion with the patient and/or guardian regarding: the pm1 historical points, exam findings, and any diagnostic results supporting the discharge/admit diagnosis, lab results, the need for outpatient follow up, to return to the emergency department if symptoms worsen or persist or if there are any questions or concerns that arise at home. 08/21 21:51 Order name: CBC with Diff pm1 08/21 21:51 Order name: CMP pm1 08/21 21:51 Order name: EKG; Complete Time: 21:52 pm1 08/21 22:13 Order name: Glucose, Ancillary Testing; Complete Time: 22:15 EDMS 08/21 23:00 Order name: Glucose, Ancillary Testing EDMS 08/21 21:51 Order name: EKG - Nurse/Tech; Complete Time: 22:02 pm1 Administered Medications: No medications were administered Disposition: 08/22 19:06 Co-signature as Attending Physician, Jef Quintero MD. 7 Disposition Summary: 08/21/21 22:51 Discharge Ordered Location: Home pm1 Problem: new pm1 Symptoms: have improved pm1 Condition: Stable pm1 Diagnosis - Hyperglycemia, unspecified pm1 Followup: pm1 - With: Emergency Department - When: As needed - Reason: Worsening of condition Followup: pm1 - With: Private Physician - When: 2 - 3 days - Reason: Recheck today's complaints, Continuance of care, Re-evaluation by your physician Discharge Instructions: - Discharge Summary Sheet pm1 - Hyperglycemia pm1 - Blood Glucose Monitoring, Adult pm1 Forms: - Medication Reconciliation Form pm1 - Thank You Letter pm1 - Antibiotic Education pm1 - Prescription Opioid Use pm1 Signatures: Dispatcher [employer] EDMS Crow Marquez, HYDRO MECHANIC HYDRO MECHANIC pm1 Jef Quintero MD MD [facility] Gogo Guthrie RN RN ld1
--- NOTE | 2021-08-21 22:51 | ER ---
Nurse's Notes [facility] Name: Latricia Cadet Age: 70 yrs Sex: Female : 1950 Arrival Date: 08/21/2021 Time: 21:23 Bed 5 Private MD: Diagnosis: Hyperglycemia, unspecified Presentation: 08/21 21:48 Chief complaint: Patient states: I had dialysis today - they took 4L off. My blood ld1 sugar at home was 330, they are usually around 100. Pt c/o dizziness - "I just feel funny.". Coronavirus screen: At this time, the client does not indicate any symptoms associated with coronavirus-19. Ebola Screen: No symptoms or risks identified at this time. Initial Sepsis Screen: Does the patient meet any 2 criteria? No. Patient's initial sepsis screen is negative. Does the patient have a suspected source of infection? No. Patient's initial sepsis screen is negative. Risk Assessment: Do you want to hurt yourself or someone else? Patient reports no desire to harm self or others. Onset of symptoms was August 21, 2021. 21:48 Method Of Arrival: Wheelchair ld1 21:48 Acuity: JAKE 3 ld1 Triage Assessment: 21:50 General: Appears in no apparent distress. comfortable, Behavior is calm, cooperative, ld1 appropriate for age. Pain: Denies pain. EENT: No signs and/or symptoms were reported regarding the EENT system. Neuro: Level of Consciousness is awake, alert, obeys commands, Oriented to person, place, time, situation. Neuro: Reports dizziness. Cardiovascular: Capillary refill < 3 seconds Patient's skin is warm and dry. Respiratory: Airway is patent Respiratory effort is even, unlabored. GI: Abdomen is round non-distended. : No signs and/or symptoms were reported regarding the genitourinary system. Derm: No signs and/or symptoms reported regarding the dermatologic system. Musculoskeletal: No signs and/or symptoms reported regarding the musculoskeletal system. Historical: - Allergies: 21:50 No Known Allergies; ld1 - PMHx: 21:50 CHF; Diabetes - NIDDM; Hypertension; insomnia; kidney disease; Rheumatoid Arthritis; ld1 Heart attack; - PSHx: 21:50 Hysterectomy; ld1 - Immunization history:: Adult Immunizations up to date, Client reports receiving the 2nd dose of the Covid vaccine. - Social history:: Smoking status: Patient denies any tobacco usage or history of. Patient/guardian denies using alcohol. Screenin:23 Abuse screen: Denies threats or abuse. Denies injuries from another. Nutritional tw5 screening: No deficits noted. Tuberculosis screening: No symptoms or risk factors identified. Fall Risk None identified. Assessment: 22:23 General: Appears in no apparent distress. comfortable, Behavior is calm, cooperative. tw5 Pain: Denies pain. Neuro: No deficits noted. Level of Consciousness is awake, alert, obeys commands, Oriented to person, place, time, situation. Cardiovascular: No deficits noted. Denies chest pain, shortness of breath. Respiratory: No deficits noted. Airway is patent Trachea midline Respiratory effort is even, unlabored, Respiratory pattern is regular, symmetrical. GI: No deficits noted. No signs and/or symptoms were reported involving the gastrointestinal system. Abdomen is round non-distended. : No deficits noted. No signs and/or symptoms were reported regarding the genitourinary system. EENT: No deficits noted. No signs and/or symptoms were reported regarding the EENT system. Derm: Skin is intact, is thin, dialysis port to right subclavian. dialysis fistula to right upper arm. Musculoskeletal: No deficits noted. No signs and/or symptoms reported regarding the musculoskeletal system. Circulation, motion, and sensation intact. Capillary refill < 3 seconds, Range of motion: intact in all extremities. 23:04 Reassessment: Patient appears in no apparent distress at this time. No changes from tw5 previously documented assessment. Patient and/or family updated on plan of care and expected duration. Pain level reassessed. Patient is alert, oriented x 3, equal unlabored respirations, skin warm/dry/pink. Patient denies pain at this time. Patient states feeling better. Patient states symptoms have improved. Vital Signs: 21:48 BP 118 / 73; Pulse 80; Resp 18; Temp 97.6(TE); Pulse Ox 98% on R/A; Weight 77.56 kg; ld1 Height 5 ft. 4 in. (162.56 cm); Pain 0/10; 21:48 Body Mass Index 29.35 (77.56 kg, 162.56 cm) ld1 ED Course: 21:23 Patient arrived in ED. ja2 21:49 Marinas, Crow, AIRPORT REPRESENTATIVE is PHCP. pm1 21:49 Jef Quintero MD is Attending Physician. pm1 21:50 Triage completed. ld1 21:50 Arm band placed on left wrist. ld1 21:51 Michaela Clark, RN is Primary Nurse. lg3 22:23 Patient has correct armband on for positive identification. Placed in gown. Bed in low tw5 position. Call light in reach. Side rails up X2. Pulse ox on. NIBP on. Door closed. Noise minimized. Warm blanket given. Pillow given. 23:05 No provider procedures requiring assistance completed. Patient did not have IV access tw5 during this emergency room visit. Administered Medications: No medications were administered Outcome: :51 Discharge ordered by . pm1 23:05 Discharged to home via wheelchair, with significant other. tw5 23:05 Condition: stable 23:05 Discharge instructions given to patient, Instructed on discharge instructions. 23:05 Patient left the ED. tw5 Signatures: Crow Marquez NP AIRPORT REPRESENTATIVE pm1 Michaela Clark, RN RN lg3 Gogo Guthrie RN RN ld1 Heather Govea Tiffany tw5
[2021-08-21 22:54] LABS: Absolute Lymphocytes (CBC) 1.6 K/uL (0.7-4.9); Hematocrit 28.5 % (36.0-45.0); Lymphocytes % 19.1 % (15.3-44.8); MPV 8.7 fL (7.6-11.3); RBC Red Blood Cell Count 3.28 M/uL (3.86-4.86)
[2021-08-21 23:17] LABS: Albumin 2.7 g/dL (3.4-5.0); Bilirubin Total 0.3 mg/dL (0.2-1.0); Potassium 3.2 mmol/L (3.5-5.1); Protein, Total 6.1 g/dL (6.4-8.2)
[2021-08-21 23:46] VITALS: BP 118/73; TEMP 97.6; O2SAT 98
--- NOTE | 2021-08-23 11:16 | EKG ---
Test Date: 2021-08-21 Test Time: 22:00:44 Cosmetics Counter Manager: JEREMI MEASUREMENT RESULTS: Intervals: Rate: 82 DE: QRSD: 154 QT: 426 QTc: 497 John Day: P: DE: QRS: -63 T: 97 INTERPRETIVE STATEMENTS: Wide QRS rhythm with occasional premature ventricular complexes Left axis deviation Right bundle branch block Left ventricular hypertrophy with repolarization abnormality Inferior infarct, age undetermined Anterolateral infarct, age undetermined Abnormal ECG Compared to ECG 07/31/2021 01:03:40 Uncertain supraventricular rhythm now present Ventricular premature complex(es) now present T-wave abnormality no longer present Possible ischemia no longer present Myocardial infarct finding still present Electronically Signed On 08-23-21 11:12:47 CDT by Aakash Ashford
== END 2021-08-21 23:05 | disposition home or self-care (01) ==
LOC: ER 21:20
DX: E11.65 Type 2 diabetes mellitus with hyperglycemia (principal); I10 Essential (primary) hypertension; I50.9 Heart failure, unspecified
CPT/HCPCS: 36415; 80053; 82947; 85025; 93005; 99283

== ENCOUNTER 2021-11-27 10:55 | Observation (INO) | payer OTHER ==
[2021-11-27 11:57] LABS: Absolute Lymphocytes (CBC) 1.1 K/uL (0.7-4.9); Hematocrit 32.3 % (36.0-45.0); Lymphocytes % 21.2 % (15.3-44.8); MCV 81.2 fL (80-100); MPV 7.4 fL (7.6-11.3); RBC Red Blood Cell Count 3.97 M/uL (3.86-4.86)
[2021-11-27 12:08] LABS: Troponin High Sensitivity 27.8 pg/mL (<58.9)
[2021-11-27 12:09] LABS: Potassium 3.2 mmol/L (3.5-5.1)
--- NOTE | 2021-11-27 12:49 | RAD REPORT ---
EXAM DESCRIPTION: Bernabe Single View11/27/2021 12:16 pm CLINICAL HISTORY: Chest pain COMPARISON: July 2021 FINDINGS: The lungs appear clear of acute infiltrate. The heart is mildly enlarged Pacemaker leads in place Central venous catheter with its tip in the SVC IMPRESSION: No acute abnormalities displayed
[2021-11-27 12:53] LABS: Anisocytosis 1+; Blood Morphology Comment NOTED (NOT SEEN); Macrocytosis SLIGHT; Platelet Estimate ADEQ; White Blood Cell Scan OK (OK)
--- NOTE | 2021-11-27 12:57 | ER ---
Nurse's Notes [facility] Name: Latricia Cadet Age: 71 yrs Sex: Female : 1950 Arrival Date: 11/27/2021 Time: 10:59 Bed 5 Private MD: Diagnosis: Chest pain, unspecified;End stage renal disease Presentation: 11/27 11:08 Chief complaint: EMS states: SENT FROM [facility] FOR C/O INTERMITTENT CHEST PAIN bp SINCE 0200. Coronavirus screen: At this time, the client does not indicate any symptoms associated with coronavirus-19. Ebola Screen: No symptoms or risks identified at this time. Initial Sepsis Screen: Does the patient meet any 2 criteria? No. Patient's initial sepsis screen is negative. Does the patient have a suspected source of infection? No. Patient's initial sepsis screen is negative. Risk Assessment: Do you want to hurt yourself or someone else? Patient reports no desire to harm self or others. Onset of symptoms was November 27, 2021 at 02:00. Care prior to arrival: Medication(s) given: ASA, 81 mg, x 4, Nitroglycerin, 0.4 mg SL x 1, Glucose check: 174. 11:08 Method Of Arrival: EMS: [facility] bp 11:08 Acuity: JAKE 3 bp Triage Assessment: 11:10 General: Appears in no apparent distress. comfortable, Behavior is cooperative, bp appropriate for age, anxious. Pain: Complains of pain in chest. EENT: No deficits noted. Neuro: No deficits noted. Cardiovascular: Rhythm is Respiratory: No deficits noted. GI: No signs and/or symptoms were reported involving the gastrointestinal system. : No signs and/or symptoms were reported regarding the genitourinary system. Derm: No deficits noted. Musculoskeletal: No deficits noted. Historical: - Allergies: 11:10 No Known Allergies; bp - PMHx: 11:10 CHF; Diabetes - NIDDM; heart attack; Hypertension; insomnia; kidney disease; Rheumatoid bp Arthritis; - PSHx: 11:10 hysterectomy; bp - Immunization history:: Adult Immunizations up to date. - Social history:: Smoking status: Patient denies any tobacco usage or history of. - Family history:: not pertinent. - Hospitalizations: : No recent hospitalization is reported. Screenin:10 Abuse screen: Denies threats or abuse. Denies injuries from another. Nutritional bp screening: No deficits noted. Tuberculosis screening: No symptoms or risk factors identified. Fall Risk None identified. Assessment: 11:10 General: SEE TRIAGE NOTE. bp 13:00 Reassessment: ADMIT INITIATED. bp 14:36 Reassessment: ADMIT COMPLETE, RM 228 ASSIGNED. bp Vital Signs: 11:08 BP 120 / 76; Pulse 85; Resp 16; Temp 98; Pulse Ox 99% on 2 lpm NC; Weight 77.11 kg; bp Height 5 ft. 4 in. (162.56 cm); 11:14 BP 127 / 70; Pulse 80; Resp 18; Pulse Ox 100% on 2 lpm NC; bp 12:00 BP 131 / 71; Pulse 80; Resp 16; Pulse Ox 100% ; bp 14:00 BP 138 / 67; Pulse 80; Resp 16; Pulse Ox 100% ; bp 11:08 Body Mass Index 29.18 (77.11 kg, 162.56 cm) bp ED Course: 10:59 Patient arrived in ED. em1 11:00 Nicho Ellison MD is Attending Physician. rn 11:08 Philipp Linn RN is Primary Nurse. bp 11:10 Triage completed. bp 11:10 Arm band placed on. bp 11:10 Patient has correct armband on for positive identification. Bed in low position. Call bp light in reach. Side rails up X2. 11:34 SARS-COV-2 RT PCR (Document "Date of Onset" if Symptomatic) Sent. mb7 11:34 EKG done, by ED staff, reviewed by Nicho Ellison MD. mb7 11:39 Inserted saline lock: 22 gauge in right antecubital area, using aseptic technique. bp Blood collected. 12:18 XRAY Chest (1 view) In Process Unspecified. EDMS 12:57 Andi Lang MD is Hospitalizing Provider. rn 14:41 No provider procedures requiring assistance completed. Patient admitted, IV remains in bp place. Administered Medications: No medications were administered Medication: 11:10 VIS not applicable for this client. bp Outcome: 12:57 Decision to Hospitalize by Provider. rn 14:41 Admitted to Med/surg accompanied by tech, via wheelchair, room 228, with chart, Report bp called to LESLY RN 14:41 Condition: stable 14:41 Instructed on the need for admit. 15:14 Patient left the ED. bp Signatures: Dispatcher [employer] Nicho Allen MD MD rn Martinez, Eric [facility] Philipp Linn RN RN Mary De Leon mb7
--- NOTE | 2021-11-27 12:58 | EDPHYS ---
Physician Documentation [facility] Name: Latricia Cadet Age: 71 yrs Sex: Female : 1950 Arrival Date: 11/27/2021 Time: 10:59 Bed 5 Private MD: ED Physician Nicho Ellison HPI: 11/27 11:48 This 71 yrs old Female presents to ER via EMS with complaints of chest pain. rn 11:48 The patient or guardian reports chest pain that is located primarily in the substernal rn area. Onset: this morning. The pain radiates to back. Associated signs and symptoms: Pertinent positives:. 11:54 The chest pain is described as "pain". Duration: The patient or guardian reports a rn single episode, that is still ongoing. Modifying factors: The symptoms are alleviated by ASA, NTG, the symptoms are aggravated by dialysis. Severity of pain: At its worst the pain was moderate in the emergency department the pain has improved. The patient has not experienced similar symptoms in the past. The patient has been recently seen by a physician:. Pt states woke up today with chest pain, central and left sided, radiates to back, went to dialysis and pain worsened. No fever/cough. No sob. NO abd pain. Couldn't complete dialysis. Pain improved after dialysis center gave aspirin and nitro. Not completely resolved. . Historical: - Allergies: 11:10 No Known Allergies; bp - PMHx: 11:10 CHF; Diabetes - NIDDM; heart attack; Hypertension; insomnia; kidney disease; Rheumatoid bp Arthritis; - PSHx: 11:10 hysterectomy; bp - Immunization history:: Adult Immunizations up to date. - Social history:: Smoking status: Patient denies any tobacco usage or history of. - Family history:: not pertinent. - Hospitalizations: : No recent hospitalization is reported. ROS: 11:54 Constitutional: Negative for fever, chills, and weight loss, Eyes: Negative for injury, rn pain, redness, and discharge, Neck: Negative for injury, pain, and swelling, Cardiovascular: Negative for palpitations, and edema, Respiratory: Negative for shortness of breath, cough, wheezing, and pleuritic chest pain, Abdomen/GI: Negative for abdominal pain and constipation, + nausea/vomiting/diarrhea MS/Extremity: Negative for injury and deformity, Skin: Negative for injury, rash, and discoloration, Neuro: Negative for headache, numbness, tingling, and seizure. Exam: 11:54 Constitutional: This is a well developed, well nourished patient who is awake, alert, rn and in no acute distress. Head/Face: Normocephalic, atraumatic. Neck: Trachea midline, no masses palpated Cardiovascular: Regular rate and rhythm. No pulse deficits. Respiratory: No increased work of breathing, no retractions or nasal flaring. Abdomen/GI: Soft, non-tender Skin: Warm, dry MS/ Extremity: Pulses equal, no cyanosis. Neuro: Awake and alert, GCS 15 Vital Signs: 11:08 BP 120 / 76; Pulse 85; Resp 16; Temp 98; Pulse Ox 99% on 2 lpm NC; Weight 77.11 kg; bp Height 5 ft. 4 in. (162.56 cm); 11:14 BP 127 / 70; Pulse 80; Resp 18; Pulse Ox 100% on 2 lpm NC; bp 12:00 BP 131 / 71; Pulse 80; Resp 16; Pulse Ox 100% ; bp 14:00 BP 138 / 67; Pulse 80; Resp 16; Pulse Ox 100% ; bp 11:08 Body Mass Index 29.18 (77.11 kg, 162.56 cm) bp MDM: 11:00 Patient medically screened. rn 12:56 Differential diagnosis: acute myocardial infarction, acute pericarditis, anxiety, rn coronary artery disease gastroesophageal reflux disease (GERD), pericarditis, pleurisy, pneumonia, pneumothorax. Data reviewed: vital signs, nurses notes, lab test result(s), EKG, radiologic studies, plain films, and as a result, I will admit patient. Counseling: I had a detailed discussion with the patient and/or guardian regarding: the historical points, exam findings, and any diagnostic results supporting the discharge/admit diagnosis, lab results, radiology results, the need for further work-up and treatment in the hospital. Response to treatment: the patient's symptoms have mildly improved after treatment, and as a result, I will admit patient. Admission orders: after a detailed discussion of the patient's condition and case, the admit orders are written by me. 11/27 11:01 Order name: Basic Metabolic Panel; Complete Time: 12:34 rn 11/27 11:01 Order name: CBC with Diff; Complete Time: 12:54 rn 11/27 11:01 Order name: NT PRO-BNP; Complete Time: 12:34 rn 11/27 11:01 Order name: Troponin HS; Complete Time: 12:34 rn 11/27 11:01 Order name: SARS-COV-2 RT PCR (Document "Date of Onset" if Symptomatic); Complete Time: rn 13:08 11/27 12:54 Order name: CBC Smear Scan; Complete Time: 12:54 EDVT 11/27 11:01 Order name: XRAY Chest (1 view); Complete Time: 12:54 rn 11/27 11:01 Order name: EKG; Complete Time: 11:02 rn 11/27 11:01 Order name: Cardiac monitoring; Complete Time: 11:12 rn 11/27 11:01 Order name: EKG - Nurse/Tech; Complete Time: 11:12 rn 11/27 11:01 Order name: IV Saline Lock; Complete Time: 11:39 rn 11/27 11:01 Order name: Labs collected and sent; Complete Time: 11:39 rn 11/27 13:36 Order name: CONS Physician Consult [facility] 11/27 13:36 Order name: Heart Healthy EDVT 11/27 11:01 Order name: O2 Per Protocol; Complete Time: 11:12 rn 11/27 11:01 Order name: O2 Sat Monitoring; Complete Time: 11:12 rn Administered Medications: No medications were administered Disposition Summary: 11/27/21 12:57 Hospitalization Ordered Hospitalization Status: Observation rn Provider: Andi Lang rn Location: Telemetry/MedSurg (observation) rn Condition: Stable rn Problem: new rn Symptoms: have improved rn Bed/Room Type: Standard rn Room Assignment: 228(11/27/21 14:27) em1 Diagnosis - Chest pain, unspecified rn - End stage renal disease rn Forms: - Medication Reconciliation Form rn - SBAR form rn Signatures: Dispatcher [employer] Nicho Ibrahim MD MD rn Martinez, Eric em1 Philipp Linn RN RN bp Corrections: (The following items were deleted from the chart) 14:27 12:57 rn em1
[2021-11-27] MEDS ORDERED: MORPHINE 4 MG/ML SYR IV PRN (13:28)
[2021-11-27] MEDS ORDERED: NITROGLYCERIN 0.4 MG/TAB SL PRN (13:28)
[2021-11-27] MEDS ORDERED: D50W 25 GM/50 ML SYRINGE IV PRN (13:35)
[2021-11-27] MEDS ORDERED: GLUCAGON 1 MG/VIAL IM PRN (13:35)
[2021-11-27] MEDS: METOPROLOL TARTRATE 5 MG/5 ML INJ IV SCH ×3 (14:00→14:10)
[2021-11-27 15:31] VITALS: BMI 29.2
--- NOTE | 2021-11-27 16:11 | P.HP ---
Certification for Inpatient Patient admitted to: Observation With expected LOS: <2 Midnights Practitioner: I am a practitioner with admitting privileges, knowledge of patient current condition, hospital course, and medical plan of care. Services: Services provided to patient in accordance with Admission requirements found in Title 42 Section 412.3 of the Code of Federal Regulations Patient History Date of Service: 11/27/21 Reason for admission: Chest pain History of Present Illness: Patient is 71 years of age was undergoing dialysis started complaining of left- sided atypical chest pain overlying her pacemaker been having this for the past 3 to 4 days and then terminated dialysis admitted to the hospital prior history of coronary artery disease patient has a pacemaker patient is ambulatory denies any history of exertional chest pain Allergies No Known Allergies Allergy (Verified 09/06/13 22:37) Home Medications: Apixaban [Eliquis *] 2.5 mg PO BID 04/14/20 Calcitrol [Rocaltrol*] 0.25 mcg PO DAILY 04/14/20 Cholecalciferol (Vitamin D3) [Vitamin D3] 5,000 unit PO DAILY 04/14/20 Furosemide [Lasix] 80 mg PO BID 04/14/20 Hydralazine HCl [Apresoline] 100 mg PO BID 04/14/20 Insulin Degludec [Tresiba Flextouch U-100] 30 unit SQ DAILY 04/14/20 Insulin Glulisine [Apidra Solostar] 13 unit SQ TID 04/14/20 Isosorbide Mononitrate [Isosorbide Mononitrate ER] 60 mg PO DAILY 04/14/20 Melatonin 10 mg PO DAILY 04/14/20 Potassium Chloride [K-Dur] 10 meq PO BID 04/14/20 Pramipexole [Mirapex*] 1 mg PO BEDTIME 04/14/20 Semaglutide [Ozempic] 0.5 mg SQ SEECOM 04/14/20 cloNIDine HCL [Catapres] 0.1 mg PO BEDTIME 04/14/20 - Past Medical/Surgical History Has patient received pneumonia vaccine in the past: Yes Diabetic: Yes -: Diabetes mellitus type 2-insulin dependent -: Rheumatoid arthritis -: Hypertension -: Hyperlipidemia -: Chronic congestive heart failure-unknown EF -: Chronic kidney disease stage 4 -: L ankle fusion -: hysterectomy -: Dialysis catheter placement and removal Psychosocial/ Personal History: Patient lives with her - Social History Smoking Status: Unknown if ever smoked Alcohol use: No CD- Drugs: No Caffeine use: No Review of Systems 10-point ROS is otherwise unremarkable Physical Examination - Vital Signs Temperature: 98 F Blood Pressure: 138/67 Pulse: 80 Respirations: 16 - Physical Exam General: Alert, Oriented x3 HEENT: Atraumatic Neck: Supple Respiratory: Clear to auscultation bilaterally Cardiovascular: No edema, Regular rate/rhythm, Normal S1 S2 Gastrointestinal: Normal bowel sounds, Soft and benign - Studies Laboratory Data (last 24 hrs) 11/27/21 11:36: WBC 5.1, Hgb 10.2 L, Hct 32.3 L, Plt Count 290 11/27/21 11:36: Sodium 133 L, Potassium 3.2 L, BUN 18, Creatinine 3.71 H, Glucose 144 H Assessment and Plan - Problems (Diagnosis) (1) Atypical chest pain Current Visit: Yes Status: Acute Plan: Patient is 71 years of age has been complaining of some pain over her pacemaker site for the past 3 to 4days it is a sharp pain is not related to exertion no prior history of exertional chest pain or angina denies having any stents placed troponins are negative EKG no change labs reviewed mild hypokalemia aloe up with nephrology discharge tomorrow mildly anemic BNP elevated patient is in no distress - Advance Directives Does patient have a Living Will: No Does patient have a Durable POA for Healthcare: No
[2021-11-27] MEDS ORDERED: D10W 125 ML IV PRN (16:32)
[2021-11-27] MEDS: INSULIN -REGULAR HUMAN 50 UNIT/0.5 ML ML SQ SCH ×2 (16:53→20:04)
[2021-11-27] MEDS: HEPARIN 5000 UNIT/ML 1 ML VIAL SQ SCH (16:53)
--- NOTE | 2021-11-27 17:10 | P.CNS ---
Date of Consult: 11/27/21 Reason for Consult: ESRD Chief Complaint: Chest pain History of Present Illness: Patient is 71 years female with ESRD who has been on HD for several years and dialyzes at the [facility] facility ad was undergoing dialysis earlier today when she noted some fluttering of the heart and abnormal left sided chest sensation. She report sensation still present. She reports hx of heart disease with possible prior [place] but denies PCI/stenting but does report PPM put in 3 years ago. She reports [place] with mod exertion. She denies missed HD and denies leaving above EDW. Allergies No Known Allergies Allergy (Verified 09/06/13 22:37) Home Medications: Apixaban [Eliquis *] 2.5 mg PO BID 04/14/20 Calcitrol [Rocaltrol*] 0.25 mcg PO DAILY 04/14/20 Furosemide [Lasix] 80 mg PO BID 04/14/20 Hydralazine HCl [Apresoline] 25 mg PO Q8H 04/14/20 Isosorbide Mononitrate [Isosorbide Mononitrate ER] 60 mg PO DAILY 04/14/20 Pramipexole [Mirapex*] 1 mg PO BEDTIME 04/14/20 Semaglutide [Ozempic] 0.25 mg SQ SEECOM 04/14/20 Aspirin 81 mg PO DAILY 11/27/21 Budesonide [Budesonide EC] 3 mg PO TID 11/27/21 Carvedilol [Coreg] 25 mg PO BID 11/27/21 Escitalopram [Lexapro] 10 mg PO BEDTIME 11/27/21 Insulin Aspart [Novolog Flexpen] 8 unit SQ TIDWM 11/27/21 Insulin Glargine,Hum.rec.anlog [Lantus] 55 unit SQ DAILY 11/27/21 Pantoprazole [Protonix Tab] 40 mg PO DAILY 11/27/21 Trazodone HCl 100 mg PO BEDTIME 11/27/21 - Past Medical/Surgical History Diabetic: Yes -: Diabetes mellitus type 2-insulin dependent -: Rheumatoid arthritis -: Hypertension -: Hyperlipidemia -: Chronic congestive heart failure-unknown EF -: Chronic kidney disease stage 4 -: CAD -: L ankle fusion -: hysterectomy -: Dialysis catheter placement and removal Psychosocial/ Personal History: Patient lives with her - Social History Smoking Status: Unknown if ever smoked Alcohol use: No CD- Drugs: No Caffeine use: No Review of Systems General: Unremarkable Eyes: Unremarkable ENT: Unremarkable Respiratory: SOB with Excertion Cardiovascular: Chest Pain, Palpitations Gastrointestinal: Unremarkable Genitourinary: Unremarkable Musculoskeletal: Unremarkable Integumentary: Unremarkable Neurological: Unremarkable Lymphatics: Unremarkable Physical Examination Temp Pulse Resp BP Pulse Ox 98 F 80 16 138/67 98 11/27/21 16:11 11/27/21 16:11 11/27/21 16:11 11/27/21 16:11 11/27/21 16:00 General: Alert, In no apparent distress, Oriented x3 HEENT: Atraumatic, Normocephalic, EOMI Neck: Supple Respiratory: Clear to auscultation bilaterally, Normal air movement Cardiovascular: No edema, Normal pulses, Regular rate/rhythm (Upper chest PPM, Rt IJ TDC, failed Lt UE AVF) Gastrointestinal: Soft and benign, Non-distended, Other (PD catheter present) Musculoskeletal: No swelling Integumentary: No rashes, No breakdown Neurological: Normal speech, Normal affect Laboratory Data (last 24 hrs) 11/27/21 11:36: WBC 5.1, Hgb 10.2 L, Hct 32.3 L, Plt Count 290 11/27/21 11:36: Sodium 133 L, Potassium 3.2 L, BUN 18, Creatinine 3.71 H, Glucose 144 H Conclusions/Impression: 1. ESRD 2. Chest pain unspecified 3. Hypokalemia 4. Anemia 2nd to CKD -Pt received partial HD earlier today but no indication to repeat or perform additional HD today -Initial troponin non elevated, BNP unreliable in the setting of renal failure, CXR free of pulm edema or effusions. -Cont tele monitoring -Replete potassium gently orally, result may not be accurate if tested soon after HD due to flux. Thank you for this referral, Ti Glover MD, AZRA
[2021-11-27] MEDS ORDERED: POTASSIUM CL SA 10 MEQ TAB PO ONE (17:11)
[2021-11-28] MEDS: HEPARIN 5000 UNIT/ML 1 ML VIAL SQ SCH ×2 (00:57→08:59)
[2021-11-28] MEDS ORDERED: BISACODYL E.C. 5 MG TAB PO PRN (01:31)
[2021-11-28] MEDS: INSULIN -REGULAR HUMAN 50 UNIT/0.5 ML ML SQ SCH (07:30)
--- NOTE | 2021-11-28 08:14 | P.DS ---
Admission Date: 11/27/21 Discharge Date: 11/28/21 Disposition: ROUTINE DISCHARGE Discharge Condition: GOOD Reason for Admission: Chest pain - Problems (1) Atypical chest pain Current Visit: Yes Status: Acute Brief History of Present Illness: Patient is 71 years of age was undergoing dialysis started complaining of left- sided atypical chest pain overlying her pacemaker been having this for the past 3 to 4 days and then terminated dialysis admitted to the hospital prior history of coronary artery disease patient has a pacemaker patient is ambulatory denies any history of exertional chest pain Hospital Course: Patient is 71 years of age admitted with atypical chest pain over the pacemaker region while undergoing dialysis here for observation his troponins were negative EKG shows no new changes 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 no new change in medication no new problems during observation on examination she is alert oriented responsive cooperative denies any chest discomfort apart from some back pain vital signs are all stable patient was discharged home Vital Signs/Physical Exam: Temp Pulse Resp BP Pulse Ox 97.7 F 79 17 141/71 H 94 11/28/21 04:00 11/28/21 04:00 11/28/21 04:00 11/28/21 04:00 11/28/21 04:00 Laboratory Data at Discharge: WBC 5.1 K/uL (4.3-10.9) 11/27/21 11:36 Hgb 10.2 g/dL (12.0-15.0) L 11/27/21 11:36 Hct 32.3 % (36.0-45.0) L 11/27/21 11:36 Plt Count 290 K/uL (152-406) 11/27/21 11:36 Sodium 133 mmol/L (136-145) L 11/27/21 11:36 Potassium 3.2 mmol/L (3.5-5.1) L 11/27/21 11:36 BUN 18 mg/dL (7-18) 11/27/21 11:36 Creatinine 3.71 mg/dL (0.55-1.3) H 11/27/21 11:36 Glucose 144 mg/dL (74-106) H 11/27/21 11:36 Home Medications: Apixaban [Eliquis *] 2.5 mg PO BID 04/14/20 Calcitrol [Rocaltrol*] 0.25 mcg PO DAILY 04/14/20 Furosemide [Lasix] 80 mg PO BID 04/14/20 Hydralazine HCl [Apresoline] 25 mg PO Q8H 04/14/20 Isosorbide Mononitrate [Isosorbide Mononitrate ER] 60 mg PO DAILY 04/14/20 Pramipexole [Mirapex*] 1 mg PO BEDTIME 04/14/20 Semaglutide [Ozempic] 0.25 mg SQ SEECOM 04/14/20 Aspirin 81 mg PO DAILY 11/27/21 Budesonide [Budesonide EC] 3 mg PO TID 11/27/21 Carvedilol [Coreg] 25 mg PO BID 11/27/21 Escitalopram [Lexapro*] 10 mg PO BEDTIME 11/27/21 Insulin Aspart [Novolog Flexpen] 8 unit SQ TIDWM 11/27/21 Insulin Glargine,Hum.rec.anlog [Lantus] 55 unit SQ DAILY 11/27/21 Pantoprazole [Protonix Tab*] 40 mg PO DAILY 11/27/21 Trazodone HCl 100 mg PO BEDTIME 11/27/21 Followup: NONE,NONE [Primary Care Provider] -
[2021-11-28 09:06] VITALS: BP 141/68; TEMP 97.8
[2021-11-28 09:46] VITALS: O2SAT 95
--- NOTE | 2021-11-29 13:51 | EKG ---
Test Date: 2021-11-27 Test Time: 11:07:11 Electroencephalographic Technologist: MB MEASUREMENT RESULTS: Intervals: Rate: 80 TX: QRSD: 152 QT: 438 QTc: 505 [place]: P: TX: QRS: -77 T: 87 INTERPRETIVE STATEMENTS: Wide QRS rhythm Left axis deviation Nonspecific intraventricular block Anterolateral infarct, age undetermined Abnormal ECG Compared to ECG 08/21/2021 22:00:44 Ventricular premature complex(es) no longer present Right bundle-branch block no longer present Left ventricular hypertrophy no longer present Early repolarization no longer present Myocardial infarct finding still present Electronically Signed On 11-29-21 13:47:29 CDT by Lico Wilkins
== END 2021-11-28 12:10 | disposition home or self-care (01) ==
LOC: ER 10:55 → ERHOLD 13:29 → 2ND 14:42
PROVIDERS: ADMIT Internal Medicine Sleep Medicine; ATTEND Internal Medicine Sleep Medicine
DX: R07.89 Other chest pain (principal); I13.2 Hypertensive heart and chronic kidney disease with heart failure and with stage 5 chronic kidney disease, or end stage renal disease; E11.22 Type 2 diabetes mellitus with diabetic chronic kidney disease; N18.6 End stage renal disease; I50.9 Heart failure, unspecified; Z99.2 Dependence on renal dialysis; D63.1 Anemia in chronic kidney disease; I25.10 Atherosclerotic heart disease of native coronary artery without angina pectoris; E87.6 Hypokalemia; R06.02 Shortness of breath; R00.2 Palpitations; M54.9 Dorsalgia, unspecified; G47.00 Insomnia, unspecified; E78.5 Hyperlipidemia, unspecified; M06.9 Rheumatoid arthritis, unspecified; Z95.0 Presence of cardiac pacemaker; Z79.01 Long term (current) use of anticoagulants; Z79.82 Long term (current) use of aspirin; Z79.4 Long term (current) use of insulin; Z79.899 Other long term (current) drug therapy; Z90.710 Acquired absence of both cervix and uterus; Z20.822 Contact with and (suspected) exposure to COVID-19
CPT/HCPCS: 36415; 71045; 80048; 82947; 83880; 84484; 85025; 93005; 99285; G0378; J1644; J1815; U0003

== ENCOUNTER 2021-12-24 12:30 | Emergency (ER) | payer OTHER ==
--- OUTSIDE RECORDS SUMMARY | 2021-12-24 12:33 | XMS REPORT | Continuity of Care Document ---
:1950 Author Organization [facility] t Address [address] [place] [address] [address]. [address] [place] [address] Care Team Providers Name Role Phone CORRINE MC Attending Clinician Unavailable ANNALEE VILLEGAS Attending Clinician Unavailable MD BRIAN KYLE Attending Clinician Unavailable Michaela Attending Clinician Unavailable MD CORRINE MC Attending Clinician Unavailable JORGE LUIS DC Attending Clinician Unavailable DAVID TRIPATHI Attending Clinician Unavailable SHAKEEL NARANJO Attending Clinician Unavailable SARAI SANDRA Attending Clinician Unavailable CORRINE MC Admitting Clinician Unavailable BRIAN KYLE Admitting Clinician Unavailable Michaela Admitting Clinician Unavailable MD CORRINE MC Admitting Clinician Unavailable SARAI SANDRA Admitting Clinician Unavailable Payers Payer Name Policy Type Policy Number Effective Date Expiration Date S gus [facility] [id number] 2021 FORMERLY NAMED [facility] 00:00:00 [facility] [facility] [id number] [facility] (O) Problems This patient has no known problems. Allergies, Adverse Reactions, Alerts This patient has no known allergies or adverse reactions. Medications This patient has no known medications. Procedures This patient has no known procedures. Encounters Start End Encounter Admission Attending Care Care Encounter Source Date/Time Date/Time Type Type Clinicians Facility Department ID 2021-11-04 Outpatient [facility] [id number] [place] 14:10:[id number] [facility] 2021-08-11 Outpatient [facility] [id number] [place] 09:26:[id number] [facility] 2021-09-06 2021-09-16 Inpatient ALEXANDRO [facility] [id number] [place] 00:00:00 00:00:00 CORRINE [address] 2021-07-31 2021-08-13 Inpatient MAGALIEHOFER, [facility] [id number] [place] 00:00:00 00:00:00 ANNALEE [address] 2021-06-10 2021-06-10 Outpatient [facility] [id number] [place] 00:00:00 00:00:[address] 2021-06-09 2021-06-09 Outpatient Daniel_T VFP VFP [id number] [facility] 11:40:00 11:40:00 [id number] Family Practic e 2021-06-01 2021-06-04 Outpatient AL-LAHIQ, [facility] [id number] [place] 00:00:00 00:00:00 MAHA [address] 2020-08-05 2020-08-05 Outpatient PHUC-MICHAEL [facility] [id number] [place] 00:00:00 00:00:00 , JORGE LUIS [address] 2020-07-09 2020-07-09 Outpatient [facility] [id number] [place] 00:00:00 00:00:[address] 2020-06-18 2020-06-18 Outpatient [facility] [id number] [place] 00:00:00 00:00:00 [address] [facility] 2020-04-05 2020-04-06 Outpatient AL-LAHIQ, [facility]4 [id number] [place] 00:00:00 00:00:00 MAHA [address] 2020-03-22 2020-03-25 Inpatient AL-LAHIQ, [facility] [id number] [place] 00:00:00 00:00:00 MAHA [address] 2020-02-27 2020-02-27 Outpatient TRIPATHI, [facility] [id number] [place] 00:00:00 00:00:00 DAVID [address] [facility] 2020-02-17 2020-02-18 Outpatient AL-LAHIQ, [facility] [id number] [place] 00:00:00 00:00:00 MAHA [address] 2020-01-17 2020-01-18 Emergency JOSE A, [facility]4 [id number] [place] 00:00:00 00:00:00 SHAKEEL [address] 2019-10-23 2019-10-26 Inpatient AL-LAHIQ, [facility] [id number] [place] 00:00:00 00:00:00 MAHA [address] 2019-08-05 2019-08-05 Outpatient VANDA [facility] [id number] [place] 00:00:00 00:00:00 , JORGE LUIS [address] 2019-07-10 2019-07-12 Inpatient ALEXANDRO [facility] [id number] [place] 00:00:00 00:00:00 MAHA [address] 2019-03-27 2019-03-30 Outpatient BOAZ, [facility] [id number] [place] 00:00:00 00:00:00 SARAI [address] Results Test Description Test Time Test Comments Results Result Comments Source SARS-CoV-2 (COVID-19) RNA [Presence] in Respiratory sp ecimen by 2021-08-12 13:39:12 LANG with probe detection Test Item Value Reference Range Interpretation Comme nts SARS-CoV-2 (COVID-19) RNA [Presence] in Respiratory specimen by Not detected LANG with probe detection (test code = 84909-9) Whether patient is employed in a healthcare setting (test code = Un known 40469-3) Whether the patient has symptoms related to condition of interest U nknown (test code = 12669-7) Whether the patient was hospitalized for condition of interest Unkn own (test code = 96928-8) Whether the patient was admitted to intensive care unit (ICU) for U nknown condition of interest (test code = 94512-5) Whether patient resides in a congregate care setting (test code = U nknown 87539-9) status (test code = 41059-5) Unknown Date and time of symptom onset (test code = 78874-1) Unknown SARS-CoV-2 (COVID-19) RNA [Presence] in Respiratory specimen by LANG with probe [id number] 23:11:03 Test Item Value Reference Range Interpretation Comments SARS-CoV-2 (COVID-19) RNA Not detected [Presence] in Respiratory specimen by LANG with probe detection (test code = 45307-4) Whether patient is employed in a Unknown healthcare setting (test code = 27926-3) Whether the patient has symptoms Unknown related to condition of interest (test code = 08234-8) Whether the patient was Unknown hospitalized for condition of interest (test code = 00937-2) Whether the patient was admitted Unknown to intensive care unit (ICU) for condition of interest (test code = 10005-6) Whether patient resides in a Unknown congregate care setting (test code = 39791-5) status (test code = Unknown 36891-8) Date and time of symptom onset Unknown (test code = 69321-8) SARS-CoV-2 (COVID-19) RNA [Presence] in Respiratory specimen by LANG with probe [id number] 11:45:59 Test Item Value Reference Range Interpretation Comments SARS-CoV-2 (COVID-19) RNA Not detected Not-Detected [Presence] in Respiratory specimen by LANG with probe detection (test code = 19707-2) Whether patient is employed in a healthcare setting (test code = 09971-8) Whether the patient has symptoms related to condition of interest (test code = 98244-1) Patient was hospitalized because of this condition (test code = 05451-0) Whether the patient was admitted to intensive care unit (ICU) for condition of interest (test code = 18974-0) Whether patient resides in a congregate care setting (test code = 68236-7) SARS-CoV-2 (COVID-19) RNA [Presence] in Respiratory specimen by LANG with probe [id number] 05:28:15 Test Item Value Reference Range Interpretation Comments SARS-CoV-2 (COVID-19) RNA Not detected Not-Detected [Presence] in Respiratory specimen by LANG with probe detection (test code = 67806-7) SARS-CoV-2 (COVID-19) RNA [Presence] in Respiratory specimen by LANG with probe [id number] 23:52:31 Test Item Value Reference Range Interpretation Comments SARS-CoV-2 (COVID-19) RNA Not detected Not-Detected [Presence] in Respiratory specimen by LANG with probe detection (test code = 55606-0)
[2021-12-24] MEDS ORDERED: HYDROCODONE/APAP 5/325 MG TAB ONE (13:45)
--- NOTE | 2021-12-24 13:58 | RAD REPORT ---
EXAM DESCRIPTION: RAD - Shoulder Left 2 View - 12/24/2021 1:44 pm CLINICAL HISTORY: Left shoulder pain FINDINGS: No fracture or dislocation is seen. Moderate narrowing AC joint. Small humeral subchondral cysts. Mild narrowing glenohumeral joint. Bone s are osteoporotic
--- NOTE | 2021-12-24 14:00 | ER ---
Nurse's Notes [facility] Name: Latricia Cadet Age: 71 yrs Sex: Female : 1950 Arrival Date: 12/24/2021 Time: 12:32 Bed 26 [facility] MD: Diagnosis: Pain in left shoulder Presentation: 12/24 12:33 Chief complaint: EMS states: Left shoulder pain that radiates to left arm since last hb night. Limited ROM due to pain. Denies injury. Coronavirus screen: At this time, the client does not indicate any symptoms associated with coronavirus-19. Ebola Screen: No symptoms or risks identified at this time. Initial Sepsis Screen: Does the patient meet any 2 criteria? No. Patient's initial sepsis screen is negative. Does the patient have a suspected source of infection? No. Patient's initial sepsis screen is negative. Risk Assessment: Do you want to hurt yourself or someone else? Patient reports no desire to harm self or others. Onset of symptoms was December 23, 2021. 12:33 Method Of Arrival: EMS: [facility] 12:33 Acuity: JAKE 4 hb Triage Assessment: 12:35 General: Appears in no apparent distress. uncomfortable, Behavior is calm, cooperative. hb Pain: Pain currently is 10 out of 10 on a pain scale. EENT: No signs and/or symptoms were reported regarding the EENT system. Neuro: Level of Consciousness is awake, alert, obeys commands, Oriented to person, place, time, situation. Cardiovascular: Patient's skin is warm and dry. Respiratory: Respiratory effort is even, unlabored, Respiratory pattern is regular, symmetrical. GI: No signs and/or symptoms were reported involving the gastrointestinal system. : No signs and/or symptoms were reported regarding the genitourinary system. Derm: Skin is pink, warm \T\ dry. Musculoskeletal: Reports left shoulder pain 02/28. Historical: - Allergies: 12:35 No Known Allergies; hb - PMHx: 12:35 CHF; Diabetes - NIDDM; heart attack; Hypertension; insomnia; kidney disease; Rheumatoid hb Arthritis; - PSHx: 12:35 hysterectomy; Pacemaker; HD Fistula - Right arm; hb - Immunization history:: Adult Immunizations up to date. - Social history:: Smoking status: Patient denies any tobacco usage or history of. Screenin:37 Abuse screen: Denies threats or abuse. Denies injuries from another. Nutritional hb screening: No deficits noted. Tuberculosis screening: No symptoms or risk factors identified. Fall Risk None identified. Assessment: 12:37 General: See triage assessment. . hb Vital Signs: 12:33 BP 122 / 58; Pulse 80; Resp 16; Temp 98.2; Pulse Ox 100% on R/A; Weight 68.04 kg; hb Height 5 ft. 4 in. (162.56 cm); Pain 10/10; 12:33 Body Mass Index 25.75 (68.04 kg, 162.56 cm) hb ED Course: 12:32 Patient arrived in ED. iw 12:33 Kira Rabago, RN is Primary Nurse. hb 12:35 Triage completed. hb 12:35 Arm band placed on. hb 12:37 Patient has correct armband on for positive identification. hb 12:42 Brady Nava is PHCP. jl9 12:42 Rico Romo MD is Attending Physician. jl9 13:45 XRAY Shoulder LEFT 2 view In Process Unspecified. EDMS 14:30 No provider procedures requiring assistance completed. Patient did not have IV access hb during this emergency room visit. Administered Medications: 13:38 Drug: HYDROcodone-acetaminophen 5 mg-325 mg 1 tabs Route: PO; hb 15:00 Follow up: Response: No adverse reaction hb Medication: 12:37 VIS not applicable for this client. hb Outcome: 14:00 Discharge ordered by . jl9 14:30 Discharged to home via wheelchair. hb 14:30 Condition: stable 14:30 Discharge instructions given to patient, Instructed on discharge instructions, follow up and referral plans. medication usage, Demonstrated understanding of instructions, follow-up care, medications. 14:31 Patient left the ED. hb Signatures: Dispatcher [employer] EDBrittany Waller RN RN Kira Rabago RN RN Brady Nava jl9 Corrections: (The following items were deleted from the chart) 12:36 12:35 PSHx: HD Fistule - Right Arm; hb hb
--- NOTE | 2021-12-24 14:00 | EDPHYS ---
Physician Documentation [facility] Name: Latricia Cadet Age: 71 yrs Sex: Female : 1950 Arrival Date: 12/24/2021 Time: 12:32 Bed 26 Private MD: ED Physician Rico Romo HPI: 12/24 13:51 This 71 yrs old Female presents to ER via EMS with complaints of Arm Pain/ jl9 left shoulder pain s/p hitting it on a wall 4 days ago. . 13:51 The patient or guardian complains of pain. The complaints affect the posterior aspect jl9 of left shoulder. Onset: The symptoms/episode began/occurred 4 day(s) ago. Modifying factors: the symptoms are aggravated by movement. Severity of symptoms: in the emergency department the symptoms a " 3" out of "10". Historical: - Allergies: 12:35 No Known Allergies; hb - PMHx: 12:35 CHF; Diabetes - NIDDM; heart attack; Hypertension; insomnia; kidney disease; Rheumatoid hb Arthritis; - PSHx: 12:35 hysterectomy; Pacemaker; HD Fistula - Right arm; hb - Immunization history:: Adult Immunizations up to date. - Social history:: Smoking status: Patient denies any tobacco usage or history of. ROS: 13:53 Constitutional: Negative for fever, chills, and weight loss, Eyes: Negative for injury, jl9 pain, redness, and discharge, ENT: Negative for injury, pain, and discharge, Neck: Negative for injury, pain, and swelling, Cardiovascular: Negative for chest pain, palpitations, and edema, Respiratory: Negative for shortness of breath, cough, wheezing, and pleuritic chest pain, Abdomen/GI: Negative for abdominal pain, nausea, vomiting, diarrhea, and constipation, Back: Negative for injury and pain. 13:53 Skin: Negative for injury, rash, and discoloration, Neuro: Negative for headache, weakness, numbness, tingling, and seizure, Psych: Negative for depression, anxiety, suicide ideation, homicidal ideation, and hallucinations, Allergy/Immunology: Negative for hives, rash, and allergies, Endocrine: Negative for neck swelling, polydipsia, polyuria, polyphagia, and marked weight changes, Hematologic/Lymphatic: Negative for swollen nodes, abnormal bleeding, and unusual bruising. 13:53 MS/extremity: Positive for pain, Left shoulder pain on movement. . Exam: 13:53 Constitutional: This is a well developed, well nourished patient who is awake, alert, jl9 and in no acute distress. Head/Face: Normocephalic, atraumatic. Eyes: Pupils equal round and reactive to light, extra-ocular motions intact. Lids and lashes normal. Conjunctiva and sclera are non-icteric and not injected. Cornea within normal limits. Periorbital areas with no swelling, redness, or edema. ENT: Mucous membranes moist. Neck: Trachea midline, no thyromegaly or masses palpated, and no cervical lymphadenopathy. Supple, full range of motion without nuchal rigidity, or vertebral point tenderness. No Meningismus. Chest/axilla: Normal chest wall appearance and motion. Nontender with no deformity. No lesions are appreciated. Cardiovascular: Regular rate and rhythm with a normal S1 and S2. No gallops, murmurs, or rubs. Normal PMI, no JVD. No pulse deficits. Respiratory: Lungs have equal breath sounds bilaterally, clear to auscultation and percussion. No rales, rhonchi or wheezes noted. No increased work of breathing, no retractions or nasal flaring. Abdomen/GI: Soft, non-tender, with normal bowel sounds. No distension or tympany. No guarding or rebound. No evidence of tenderness throughout. Back: No spinal tenderness. No costovertebral tenderness. Full range of motion. Skin: Warm, dry with normal turgor. Normal color with no rashes, no lesions, and no evidence of cellulitis. 13:53 Neuro: Awake and alert, GCS 15, oriented to person, place, time, and situation. Cranial nerves II-XII grossly intact. Motor strength 5/5 in all extremities. Sensory grossly intact. Cerebellar exam normal. Normal gait. Psych: Awake, alert, with orientation to person, place and time. Behavior, mood, and affect are within normal limits. 13:53 Musculoskeletal/extremity: ROM: limited active range of motion due to pain, L shoulder. Vital Signs: 12:33 BP 122 / 58; Pulse 80; Resp 16; Temp 98.2; Pulse Ox 100% on R/A; Weight 68.04 kg; hb Height 5 ft. 4 in. (162.56 cm); Pain 10/10; 12:33 Body Mass Index 25.75 (68.04 kg, 162.56 cm) hb MDM: 12:42 Patient medically screened. jl9 13:54 Data reviewed: vital signs, nurses notes, radiologic studies. jl9 13:59 Counseling: I had a detailed discussion with the patient and/or guardian regarding: jl9 radiology results, the need for outpatient follow up. 12/24 13:03 Order name: XRAY Shoulder LEFT 2 view; Complete Time: 13:58 jl9 Administered Medications: 13:38 Drug: HYDROcodone-acetaminophen 5 mg-325 mg 1 tabs Route: PO; hb 15:00 Follow up: Response: No adverse reaction hb Disposition: 15:43 Co-signature as Attending Physician, Rico Romo MD I agree with the assessment and kdr plan of care. Disposition Summary: 12/24/21 14:00 Discharge Ordered Location: Home jl9 Condition: Stable jl9 Diagnosis - Pain in left shoulder jl9 Followup: jl9 - With: Private Physician - When: 1 - 2 days - Reason: Recheck today's complaints, Continuance of care, Re-evaluation by your physician Discharge Instructions: - Discharge Summary Sheet jl9 - Shoulder Pain, [id number] jl9 Forms: - Medication Reconciliation Form jl9 - Thank You Letter jl9 - Antibiotic Education jl9 - Prescription Opioid Use jl9 Signatures: Dispatcher [employer] EDRico Lewis MD MD [facility] Kira Rabago, RN RN Brady Pierre jl9 Corrections: (The following items were deleted from the chart) 12:36 12:35 PSHx: HD Fistule - Right Arm; hb hb
== END 2021-12-24 14:31 | disposition home or self-care (01) ==
LOC: ER 12:30
DX: M25.512 Pain in left shoulder (principal); I10 Essential (primary) hypertension; Z95.0 Presence of cardiac pacemaker
CPT/HCPCS: 99283

== ENCOUNTER 2022-01-01 10:38 | Inpatient (IN) | payer OTHER ==
--- OUTSIDE RECORDS SUMMARY | 2022-01-01 10:41 | XMS REPORT | Continuity of Care Document ---
:1950 Author Organization [facility] t Address [address] [place] [address] Dr. Carlson [address] [place] [address] Care Team Providers Name Role Phone CORRINE [...] Unavailable Michaela Admitting Clinician Unavailable MD CORRINE CM Admitting Clinician Unavailable SARAI SANDRA Admitting Clinician Unavailable Payers Payer Name Policy Type Policy Number Effective Date Expiration Date S gus [facility] [id number] 2021 [facility] 00:00:00 [facility] [facility] [id number] [facility] (O) Problems This patient has no known problems. Allergies, Adverse Reactions, Alerts This patient has no known allergies or adverse reactions. Medications This patient has no known medications. Procedures This patient has no known procedures. Encounters Start End Encounter Admission Attending Care Care Encounter Source Date/Time Date/Time Type Type Clinicians Facility Department ID 2021-11-04 Outpatient [facility] [id number] [place] 14:10:46 [id number] [facility] 2021-08-11 Outpatient [facility] [id number] [place] 09:26:19 [id number] [facility] 2021-09-06 2021-09-16 Inpatient ALEXANDRO [place] [id number] Early 00:00:00 00:00:00 CORRINE [address] 2021-07-31 2021-08-13 Inpatient MAGALIEHOFER, [facility] [id number] Early 00:00:00 00:00:00 ANNALEE [address] 2021-06-10 2021-06-10 Outpatient [facility] [id number] Early 00:00:00 00:00:[address] 2021-06-09 2021-06-09 Outpatient Daniel_T VFP VFP [id number] 02-08 [facility] 11:40:00 11:40:00 [id number] Family Pract[facility] e 2021-06-01 2021-06-04 Outpatient AL-LAHIQ, [place] [id number] Early 00:00:00 00:00:00 MAHA [address] 2020-08-05 2020-08-05 Outpatient PHUC-MICHAEL [facility] [id number] Early 00:00:00 00:00:00 , JORGE LUIS [address] 2020-07-09 2020-07-09 Outpatient [facility] [id number] Early 00:00:00 00:00:[address] 2020-06-18 2020-06-18 Outpatient [facility] [id number] Early 00:00:00 00:00:00 6[address] [facility] 2020-04-05 2020-04-06 Outpatient AL-LAHIQ, [facility]4 [id number] Early 00:00:00 00:00:00 MAHA [address] 2020-03-22 2020-03-25 Inpatient AL-LAHIQ, [place] 064 [id number] Early 00:00:00 00:00:00 MAHA [address] 2020-02-27 2020-02-27 Outpatient TRIPATHI, [facility] [id number] Early 00:00:00 00:00:00 DAVID [address] [facility] 2020-02-17 2020-02-18 Outpatient AL-LAHIQ, [place] 064 [id number] Early 00:00:00 00:00:00 MAHA [address] 2020-01-17 2020-01-18 Emergency JOSE A, [facility]4 [id number] Early 00:00:00 00:00:00 SHAKEEL [address] 2019-10-23 2019-10-26 Inpatient AL-LAHIQ, [place] 064 [id number] Early 00:00:00 00:00:00 MAHA [address] 2019-08-05 2019-08-05 Outpatient VANDA [facility] [id number] Early 00:00:00 00:00:00 , JORGE LUIS [address] 2019-07-10 2019-07-12 Inpatient ALEXANDRO [facility] [id number] Early 00:00:00 00:00:00 MAHA [address] 2019-03-27 2019-03-30 Outpatient BOAZ, [facility] [id number] Early 00:00:00 00:00:00 SARAI [address] Results Test Description Test Time Test Comments Results Result Comments Source SARS-CoV-2 (COVID-19) RNA [Presence] in Respiratory sp ecimen by 2021-08-12 13:39:12 LANG with probe detection Test Item Value Reference Range Interpretation Comme nts SARS-CoV-2 (COVID-19) RNA [Presence] in Respiratory specimen by Not detected LANG with probe detection (test code = 42094-3) Whether patient is employed in a healthcare setting (test code = Un known 54412-2) Whether the patient has symptoms related to condition of interest U nknown (test code = 11188-1) Whether the patient was hospitalized for condition of interest Unkn own (test code = 23999-7) Whether the patient was admitted to intensive care unit (ICU) for U nknown condition of interest (test code = 05275-6) Whether patient resides in a congregate care setting (test code = U nknown 90932-0) status (test code = 93916-1) Unknown Date and time of symptom onset (test code = 88701-5) Unknown SARS-CoV-2 (COVID-19) RNA [Presence] in Respiratory specimen by LANG with probe [id number] 23:11:03 Test Item Value Reference Range Interpretation Comments SARS-CoV-2 (COVID-19) RNA Not detected [Presence] in Respiratory specimen by LANG with probe detection (test code = 16726-0) Whether patient is employed in a Unknown healthcare setting (test code = 28978-3) Whether the patient has symptoms Unknown related to condition of interest (test code = 28544-4) Whether the patient was Unknown hospitalized for condition of interest (test code = 14399-5) Whether the patient was admitted Unknown to intensive care unit (ICU) for condition of interest (test code = 92743-8) Whether patient resides in a Unknown congregate care setting (test code = 18247-4) status (test code = Unknown 91940-2) Date and time of symptom onset Unknown (test code = 43587-0) SARS-CoV-2 (COVID-19) RNA [Presence] in Respiratory specimen by LANG with probe [id number] 11:45:59 Test Item Value Reference Range Interpretation Comments SARS-CoV-2 (COVID-19) RNA Not detected Not-Detected [Presence] in Respiratory specimen by LANG with probe detection (test code = 48039-2) Whether patient is employed in a healthcare setting (test code = 99849-5) Whether the patient has symptoms related to condition of interest (test code = 89877-6) Patient was hospitalized because of this condition (test code = 23730-1) Whether the patient was admitted to intensive care unit (ICU) for condition of interest (test code = 45049-1) Whether patient resides in a congregate care setting (test code = 33183-3) SARS-CoV-2 (COVID-19) RNA [Presence] in Respiratory specimen by LANG with probe [id number] 05:28:15 Test Item Value Reference Range Interpretation Comments SARS-CoV-2 (COVID-19) RNA Not detected Not-Detected [Presence] in Respiratory specimen by LANG with probe detection (test code = 60000-1) SARS-CoV-2 (COVID-19) RNA [Presence] in Respiratory specimen by LANG with probe [id number] 23:52:31 Test Item Value Reference Range Interpretation Comments SARS-CoV-2 (COVID-19) RNA Not detected Not-Detected [Presence] in Respiratory specimen by LANG with probe detection (test code = 88843-2)
--- NOTE | 2022-01-01 11:40 | RAD REPORT ---
EXAM DESCRIPTION: Bernabe Single View01/01/2022 11:24 am CLINICAL HISTORY: Cough COMPARISON: November 2021 FINDINGS: The lungs appear clear of acute infiltrate. The heart is mildly to moderately enlarged. Pacemaker leads in place. Central venous catheter with its limbs in the SVC IMPRESSION: No acute abnormalities displayed
[2022-01-01 11:45] LABS: Absolute Lymphocytes (CBC) 1.8 K/uL (0.7-4.9); Hematocrit 33.5 % (36.0-45.0); Lymphocytes % 9.5 % (15.3-44.8); MCV 82.1 fL (80-100); MPV 7.3 fL (7.6-11.3); RBC Red Blood Cell Count 4.08 M/uL (3.86-4.86)
[2022-01-01 11:57] LABS: Protime INR 1.37
[2022-01-01 12:08] LABS: AST/SGOT 8 U/L (15-37); Albumin 2.1 g/dL (3.4-5.0); Alkaline Phosphatase 101 U/L (45-117); BUN Blood Urea Nitrogen 45 mg/dL (7-18); Bicarbonate 21 mmol/L (21-32); Bilirubin Direct 0.2 mg/dL (0-0.2); Bilirubin Total 0.4 mg/dL (0.2-1.0); Glomerular Filtration Rate 9 ml/min (=/>90); Glucose Level 272 mg/dL (74-106); Magnesium 1.7 mg/dL (1.8-2.4); NT PRO-BNP 32874 pg/mL (<125); Potassium 3.1 mmol/L (3.5-5.1); Protein, Total 6.2 g/dL (6.4-8.2); Sodium Level 133 mmol/L (136-145); Troponin High Sensitivity 33.2 pg/mL (<58.9)
[2022-01-01 12:15] LABS: ALT/SGPT < 10 U/L (12-78); SARS-CoV-2 Antigen Rapid Res Negative (Negative)
[2022-01-01] MEDS ORDERED: MORPHINE 2 MG/ML SYR ONE (12:24)
[2022-01-01] MEDS ORDERED: CEFTRIAXONE 1000 MG/VIAL ONE (12:24)
[2022-01-01] MEDS ORDERED: ONDANSETRON 4 MG/2 ML VIAL ONE (12:24)
[2022-01-01] MEDS ORDERED: NA CHLORIDE 0.9% 100 ML ONE (12:25)
[2022-01-01] MEDS ORDERED: ALTEPLASE 2 MG/VIAL IV ONE ×2 (12:25)
--- NOTE | 2022-01-01 12:25 | ER ---
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 bp Coronavirus screen: At this time, the client does not indicate any symptoms associated with coronavirus-19. Ebola Screen: No symptoms or risks identified at this time. Initial Sepsis Screen: Does the patient meet any 2 criteria? No. Patient's initial sepsis screen is negative. Does the patient have a suspected source of infection? No. Patient's initial sepsis screen is negative. Risk Assessment: Do you want to hurt yourself or someone else? Patient reports no desire to harm self or others. Onset of symptoms is unknown. 10:41 Method Of Arrival: EMS: [facility] bp 10:41 Acuity: JAKE 3 bp Triage Assessment: 10:44 General: Appears in no apparent distress. Behavior is cooperative, appropriate for age, bp anxious. Pain: Complains of pain in right leg. EENT: No deficits noted. Neuro: No deficits noted. Cardiovascular: No deficits noted. Respiratory: No deficits noted. GI: No signs and/or symptoms were reported involving the gastrointestinal system. : No signs and/or symptoms were reported regarding the genitourinary system. Derm: No deficits noted. Musculoskeletal: Reports pain in right leg CHRONIC ARTHRITIC. Historical: - Allergies: 10:44 No Known Allergies; bp - Home Meds: 10:47 apixaban 2.5 mg oral tab 1 tab 2 times per day [Active]; Lantus U-100 Insulin 100 bp unit/mL Sub-Q crtg 15 unit every morning [Active]; budesonide 3 mg oral CECX 3 caps once daily [Active]; metoprolol tartrate 100 mg Oral tab 1 tab 2 times per day [Active]; bumetanide 1 mg Oral tab 1 tab once daily [Active]; Tresiba U-100 Insulin 100 unit/mL subcutaneous soln 100 unit nightly [Active]; calcitriol 0.25 mcg oral cap 1 cap once daily [Active]; Ozempic 0.25 mg or 0.5 mg(2 mg/1.5 mL) subcutaneous pnij 0.5 mg once wkly [Active]; carvedilol 25 mg oral tab 1 tab 2 times per day [Active]; clonidine HCl 0.1 mg Oral Tb12 1 tab nightly [Active]; digoxin 125 mcg (0.125 mg) Oral tab 1 tab EVERY OTHER DAY [Active]; escitalopram oxalate 10 mg oral tab 1 tab once daily [Active]; doxazosin 4 mg oral tab 1 tab twice a day [Active]; pramipexole 1 mg oral tab 1 tab daily [Active]; furosemide 80 mg Oral tab 1 tab 2 times per day [Active]; sevelamer HCl 800 mg oral tab 2 tabs 3 times per day [Active]; hydralazine 100 mg Oral tab 1 tab 2 times per day [Active]; sucroferric oxyhydroxide 500 mg oral chew 1 tab 3 times per day [Active]; isosorbide mononitrate 30 mg Oral Tb24 1 tab once daily [Active]; trazodone 100 mg Oral tab 1 tab nightly [Active]; - PMHx: 10:44 CHF; Diabetes - NIDDM; heart attack; Hypertension; insomnia; kidney disease; Rheumatoid bp Arthritis; - PSHx: 10:44 HD Fistula - Right arm; hysterectomy; pacemaker; bp - Immunization history:: Adult Immunizations up to date. - Social history:: Smoking status: Patient denies any tobacco usage or history of. Screenin:45 Abuse screen: Denies threats or abuse. Denies injuries from another. Nutritional bp screening: No deficits noted. Tuberculosis screening: No symptoms or risk factors identified. Fall Risk None identified. Assessment: 10:45 General: SEE TRIAGE NOTE. bp 13:00 Reassessment: ADMIT INITIATED. bp 15:00 Reassessment: No changes from previously documented assessment. Patient and/or family bp updated on plan of care and expected duration. Pain level reassessed. 16:19 Reassessment: ADMIT COMPLETE, BED ASSIGNED. bp Vital Signs: 10:41 BP 110 / 75; Pulse 98; Resp 16; Temp 97.5; Pulse Ox 98% ; bp 10:51 Temp 97.8; Weight 68.04 kg; Height 5 ft. 4 in. (162.56 cm); Pain 10/10; ss 11:35 BP 126 / 57; Pulse 80; Resp 16; Pulse Ox 100% ; bp 12:00 BP 129 / 56; Pulse 80; Resp 17; Pulse Ox 100% ; bp 14:00 BP 122 / 47; Pulse 79; Resp 16; Pulse Ox 100% ; bp 16:00 BP 116 / 48; Pulse 80; Resp 18; Pulse Ox 99% ; bp 10:51 Body Mass Index 25.75 (68.04 kg, 162.56 cm) ss ED Course: 10:40 Patient arrived in ED. bp 10:44 Triage completed. bp 10:44 Robe Madrigal MD is Attending Physician. guy 10:44 Arm band placed on. bp 10:45 Patient has correct armband on for positive identification. Bed in low position. Call bp light in reach. Side rails up X2. 10:47 Philipp Linn, RN is Primary Nurse. bp 11:18 XRAY Chest (1 view) Sent. bp 11:26 XRAY Chest (1 view) In Process Unspecified. EDMS 11:35 Inserted saline lock: 22 gauge in left forearm, using aseptic technique. Blood bp collected. 11:38 EKG done, by ED staff, reviewed by Robe Madrigal MD. mb7 12:15 Jarrod Leiva MD is Hospitalizing Provider. guy 12:33 Knee Right 3 View XRAY In Process Unspecified. EDMS 13:18 US Extremity Venous W Compression Trevin In Process Unspecified. EDMS 16:18 No provider procedures requiring assistance completed. Patient admitted, IV remains in bp place. 16:36 Assist provider with aspiration of right knee using 18 gauge needle, Lidocaine, Set up bp for procedure. Performed by Robe Madrigal MD Patient tolerated well. Administered Medications: 12:15 Drug: morphine 2 mg Route: IVP; Infused Over: 4 mins; Site: left forearm; bp 12:15 Drug: Zofran (Ondansetron) 4 mg Route: IVP; Site: left forearm; bp 12:30 Drug: Cathflo Activase 2 mg Route: IV Thrombolytics; bp 14:57 Follow up: Response: Marked relief of symptoms bp 12:41 Drug: Rocephin (cefTRIAXone) 1 grams Route: IV; Rate: per protocol; Site: left forearm; bp 14:57 Follow up: IV Status: Completed infusion; IV Intake: 50ml bp 12:45 Drug: Lidocaine-Epinephrine -1%: (1:100,000) 10 ml {Note: AT B/S FOR .} Volume: 20 bp ml; Route: Infiltration; 12:45 Drug: Magnesium Sulfate 1 grams Route: IVPB; Infused Over: 1 hrs; Site: left forearm; bp 14:56 Follow up: IV Status: Completed infusion; IV Intake: 100ml bp 13:43 Drug: Eliquis (apixaban) 5 mg Route: PO; bp 14:57 Follow up: Response: No adverse reaction bp Medication: 10:45 VIS not applicable for this client. bp Intake: 14:56 IV: 100ml; Total: 100ml. bp 14:57 IV: 50ml; Total: 150ml. bp Outcome: 12:24 Decision to Hospitalize by Provider. guy 16:18 Admitted to Med/surg accompanied by tech, via stretcher, room 217, with chart, Report bp called to [facility] 16:18 Condition: stable 16:18 Instructed on the need for admit. 17:27 Patient left the ED. bp Signatures: Dispatcher [employer] EDNC Robe Madrigal MD MD cha Smirch, Shelby, RN RN Philipp Linn RN RN bp Breneman, Mary mb7
--- NOTE | 2022-01-01 12:25 | EDPHYS ---
Physician Documentation [facility] Name: Latricia Cadet Age: 71 yrs Sex: Female : 1950 Arrival Date: 01/01/2022 Time: 10:40 Bed 17 Private MD: ED Physician Robe Madrigal HPI: 01/01 12:11 This 71 yrs old Female presents to ER via EMS with complaints of CLOGGED guy DIALYSIS CATHETER. 12:11 The patient presents with decreased range of motion, pain, that is acute. The guy complaints affect the , right leg. Context: The problem was sustained at an unknown site, resulted from an unknown cause. Onset: The symptoms/episode began/occurred 2 day(s) ago. Historical: - Allergies: 10:44 No Known Allergies; bp - Home Meds: 10:47 apixaban 2.5 mg oral tab 1 tab 2 times per day [Active]; Lantus U-100 Insulin 100 bp unit/mL Sub-Q crtg 15 unit every morning [Active]; budesonide 3 mg oral CECX 3 caps once daily [Active]; metoprolol tartrate 100 mg Oral tab 1 tab 2 times per day [Active]; bumetanide 1 mg Oral tab 1 tab once daily [Active]; Tresiba U-100 Insulin 100 unit/mL subcutaneous soln 100 unit nightly [Active]; calcitriol 0.25 mcg oral cap 1 cap once daily [Active]; Ozempic 0.25 mg or 0.5 mg(2 mg/1.5 mL) subcutaneous pnij 0.5 mg once wkly [Active]; carvedilol 25 mg oral tab 1 tab 2 times per day [Active]; clonidine HCl 0.1 mg Oral Tb12 1 tab nightly [Active]; digoxin 125 mcg (0.125 mg) Oral tab 1 tab EVERY OTHER DAY [Active]; escitalopram oxalate 10 mg oral tab 1 tab once daily [Active]; doxazosin 4 mg oral tab 1 tab twice a day [Active]; pramipexole 1 mg oral tab 1 tab daily [Active]; furosemide 80 mg Oral tab 1 tab 2 times per day [Active]; sevelamer HCl 800 mg oral tab 2 tabs 3 times per day [Active]; hydralazine 100 mg Oral tab 1 tab 2 times per day [Active]; sucroferric oxyhydroxide 500 mg oral chew 1 tab 3 times per day [Active]; isosorbide mononitrate 30 mg Oral Tb24 1 tab once daily [Active]; trazodone 100 mg Oral tab 1 tab nightly [Active]; - PMHx: 10:44 CHF; Diabetes - NIDDM; heart attack; Hypertension; insomnia; kidney disease; Rheumatoid bp Arthritis; - PSHx: 10:44 HD Fistula - Right arm; hysterectomy; pacemaker; bp - Immunization history:: Adult Immunizations up to date. - Social history:: Smoking status: Patient denies any tobacco usage or history of. ROS: 12:12 Constitutional: Negative for fever, chills, and weight loss, Eyes: Negative for injury, guy pain, redness, and discharge, ENT: Negative for injury, pain, and discharge, Neck: Negative for injury, pain, and swelling, Cardiovascular: Negative for chest pain, palpitations, and edema, Respiratory: Negative for shortness of breath, cough, wheezing, and pleuritic chest pain, Abdomen/GI: Negative for abdominal pain, nausea, vomiting, diarrhea, and constipation, Back: Negative for injury and pain, : Negative for injury, bleeding, discharge, and swelling, Skin: Negative for injury, rash, and discoloration, Neuro: Negative for headache, weakness, numbness, tingling, and seizure, Psych: Negative for depression, anxiety, suicide ideation, homicidal ideation, and hallucinations, Allergy/Immunology: Negative for hives, rash, and allergies, Endocrine: Negative for neck swelling, polydipsia, polyuria, polyphagia, and marked weight changes, Hematologic/Lymphatic: Negative for swollen nodes, abnormal bleeding, and unusual bruising. 12:12 MS/extremity: Positive for decreased range of motion, pain, of the right knee. Exam: 12:12 Constitutional: This is a well developed, well nourished patient who is awake, alert, guy and in no acute distress. Head/Face: Normocephalic, atraumatic. Eyes: Pupils equal round and reactive to light, extra-ocular motions intact. Lids and lashes normal. Conjunctiva and sclera are non-icteric and not injected. Cornea within normal limits. Periorbital areas with no swelling, redness, or edema. ENT: Nares patent. No nasal discharge, no septal abnormalities noted. Tympanic membranes are normal and external auditory canals are clear. Oropharynx with no redness, swelling, or masses, exudates, or evidence of obstruction, uvula midline. Mucous membranes moist. Neck: Trachea midline, no thyromegaly or masses palpated, and no cervical lymphadenopathy. Supple, full range of motion without nuchal rigidity, or vertebral point tenderness. No Meningismus. Chest/axilla: Normal chest wall appearance and motion. Nontender with no deformity. No lesions are appreciated. Cardiovascular: Regular rate and rhythm with a normal S1 and S2. No gallops, murmurs, or rubs. Normal PMI, no JVD. No pulse deficits. Respiratory: Lungs have equal breath sounds bilaterally, clear to auscultation and percussion. No rales, rhonchi or wheezes noted. No increased work of breathing, no retractions or nasal flaring. Abdomen/GI: Soft, non-tender, with normal bowel sounds. No distension or tympany. No guarding or rebound. No evidence of tenderness throughout. Back: No spinal tenderness. No costovertebral tenderness. Full range of motion. Female : Normal external genitalia. Skin: Warm, dry with normal turgor. Normal color with no rashes, no lesions, and no evidence of cellulitis. Neuro: Awake and alert, GCS 15, oriented to person, place, time, and situation. Cranial nerves II-XII grossly intact. Motor strength 5/5 in all extremities. Sensory grossly intact. Cerebellar exam normal. Normal gait. Psych: Awake, alert, with orientation to person, place and time. Behavior, mood, and affect are within normal limits. 12:12 Musculoskeletal/extremity: ROM: limited active range of motion, limited passive range of motion, in the right knee, DVT Exam: negative Homans' sign noted on exam, no appreciated bluish discoloration, no erythema, no increased warmth, pain, swelling, tenderness. 12:31 ECG was reviewed by the Attending Physician. [facility] Vital Signs: 10:41 BP 110 / 75; Pulse 98; Resp 16; Temp 97.5; Pulse Ox 98% ; bp 10:51 Temp 97.8; Weight 68.04 kg; Height 5 ft. 4 in. (162.56 cm); Pain 10/10; ss 11:35 BP 126 / 57; Pulse 80; Resp 16; Pulse Ox 100% ; bp 12:00 BP 129 / 56; Pulse 80; Resp 17; Pulse Ox 100% ; bp 14:00 BP 122 / 47; Pulse 79; Resp 16; Pulse Ox 100% ; bp 16:00 BP 116 / 48; Pulse 80; Resp 18; Pulse Ox 99% ; bp 10:51 Body Mass Index 25.75 (68.04 kg, 162.56 cm) ss Procedures: 16:47 Performed right knee aspiration, medial approach, purulent fluid obtained. guy 16:57 sterile prep , lido with epi to deaden skin, 18 gauge to aspiration 50 cc, purulent guy fluid, sterile dressing with neosporin. fluid sent to lab. MDM: 10:44 Patient medically screened. guy 12:14 Differential diagnosis: contusion, tendonitis. Differential Diagnosis sepsis. Data guy reviewed: vital signs, nurses notes, lab test result(s), EKG, radiologic studies, plain films. Data interpreted: media monitor: rate is 80 beats/min, rhythm is regular, Pulse oximetry: on room air is 100 %. Test interpretation: by ED physician or midlevel provider: ECG, plain radiologic studies. Counseling: I had a detailed discussion with the patient and/or guardian regarding: the historical points, exam findings, and any diagnostic results supporting the discharge/admit diagnosis, lab results, radiology results. 01/01 10:47 Order name: Basic Metabolic Panel; Complete Time: 12:33 [facility] 01/01 10:47 Order name: CBC with Diff; Complete Time: 12:54 [facility] 01/01 10:47 Order name: LFT's; Complete Time: 12:33 [facility] 01/01 10:47 Order name: Magnesium; Complete Time: 12:33 [facility] 01/01 10:47 Order name: NT PRO-BNP; Complete Time: 12:33 [facility] 01/01 10:47 Order name: PT-INR; Complete Time: 12:08 [facility] 01/01 10:47 Order name: Troponin HS; Complete Time: 12:33 [facility] 01/01 10:47 Order name: SARS RAPID; Complete Time: 12:33 [facility] 01/01 11:54 Order name: CBC Smear Scan; Complete Time: 12:54 [facility] 01/01 12:09 Order name: Blood Culture Adult (2) [facility] 01/01 12:09 Order name: Lactate; Complete Time: 13:30 [facility] 01/01 12:12 Order name: Urine Culture [facility] 01/01 12:25 Order name: Body Fluid Cell Count [facility] 01/01 12:25 Order name: Body Fluid Crystals [facility] 01/01 10:47 Order name: XRAY Chest (1 view); Complete Time: 12:08 [facility] 01/01 12:08 Order name: US Extremity Venous W Compression Trevin; Complete Time: 14:10 [facility] 01/01 12:08 Order name: Knee Right 3 View XRAY; Complete Time: 13:30 [facility] 01/01 12:25 Order name: Body Fluid Culture EDMS 01/01 12:27 Order name: TOTAL PROTEIN, SYNOVIAL FLUID EDMS 01/01 12:29 Order name: GLUCOSE, SYNOVIAL FLUID EDMS 01/01 12:30 Order name: Digoxin; Complete Time: 14:10 [facility] 01/01 12:32 Order name: Miscellaneous Micro Reference EDMS 01/01 14:52 Order name: Urine Dipstick-Ancillary; Complete Time: 16:45 [facility] 01/01 16:05 Order name: CBC with Automated Diff EDMS 01/01 16:05 Order name: CBC with Automated Diff EDMS 01/01 16:05 Order name: Comprehensive Metabolic Panel ED[facility] 01/01 16:05 Order name: Comprehensive Metabolic Panel [facility] 01/01 16:52 Order name: Uric Acid [facility] 01/01 10:47 Order name: EKG; Complete Time: 10:49 [facility] 01/01 10:47 Order name: Cardiac monitoring; Complete Time: 11:34 [facility] 01/01 10:47 Order name: EKG - Nurse/Tech; Complete Time: 11:34 [facility] 01/01 10:47 Order name: IV Saline Lock; Complete Time: 11:34 [facility] 01/01 10:47 Order name: Labs collected and sent; Complete Time: 11:34 [facility] 01/01 10:47 Order name: O2 Per Protocol; Complete Time: 11:18 [facility] 01/01 10:47 Order name: O2 Sat Monitoring; Complete Time: 11:18 [facility] 01/01 12:12 Order name: Urine Dipstick-Ancillary (obtain specimen); Complete Time: 14:57 [facility] 01/01 12:29 Order name: Dressing - Wound; Complete Time: 12:44 [facility] 01/01 12:29 Order name: Gloves, Sterile; Complete Time: 12:38 [facility] 01/01 12:29 Order name: Setup Suture Tray; Complete Time: 12:38 guy 01/01 15:15 Order name: CONS Physician Consult [facility] 01/01 16:01 Order name: Diet Renal; Complete Time: 16:05 bp 01/01 16:05 Order name: Renal EDMS EC:31 Rate is 80 beats/min. Rhythm is regular. QRS [place] is Normal. DC interval is normal. QRS guy interval is prolonged at 146 msec. QT interval is normal. No Q waves. T waves are Normal. No ST changes noted. Clinical impression: Abnormal EKG without significant change and No evidence of ischemia. Interpreted by me. Reviewed by me. Administered Medications: 12:15 Drug: morphine 2 mg Route: IVP; Infused Over: 4 mins; Site: left forearm; bp 12:15 Drug: Zofran (Ondansetron) 4 mg Route: IVP; Site: left forearm; bp 12:30 Drug: Cathflo Activase 2 mg Route: IV Thrombolytics; bp 14:57 Follow up: Response: Marked relief of symptoms bp 12:41 Drug: Rocephin (cefTRIAXone) 1 grams Route: IV; Rate: per protocol; Site: left forearm; bp 14:57 Follow up: IV Status: Completed infusion; IV Intake: 50ml bp 12:45 Drug: Lidocaine-Epinephrine -1%: (1:100,000) 10 ml {Note: AT B/S FOR MD.} Volume: 20 bp ml; Route: Infiltration; 12:45 Drug: Magnesium Sulfate 1 grams Route: IVPB; Infused Over: 1 hrs; Site: left forearm; bp 14:56 Follow up: IV Status: Completed infusion; IV Intake: 100ml bp 13:43 Drug: Eliquis (apixaban) 5 mg Route: PO; bp 14:57 Follow up: Response: No adverse reaction bp Disposition Summary: 01/01/22 12:24 Hospitalization Ordered Hospitalization Status: Inpatient Admission guy Provider: Jarrod Leiva cha Location: Telemetry/MedSurg (Inpatient) guy Condition: Stable guy Problem: new guy Symptoms: have improved guy Bed/Room Type: Standard guy Room Assignment: 217(01/01/22 16:13) dw Diagnosis - Pain in right knee guy - End stage renal disease - on HD guy - Dyspnea guy - Other complication of vascular dialysis catheter - NOT FUNCTIONING guy - Elevated white blood cell count guy - Effusion, right knee guy - [employer] (current) use of anticoagulants - Eliquis guy - Hypokalemia guy - Hypomagnesemia guy - Acute embolism and thrombosis of other specified deep vein of right lower extremity guy - UTI/ Urinary tract infection, site not specified guy Forms: - Medication Reconciliation Form guy - SBAR form guy Signatures: Dispatcher [employer] Sarahi Teixeira RN RN dw Anderson, Corey, MD MD cha Peltier, Brian, RN RN bp Corrections: (The following items were deleted from the chart) 16:13 12:24 guy dw
[2022-01-01 12:46] LABS: Blood Morphology Comment NOTED (NOT SEEN); Platelet Estimate ADEQ; Polychromasia SLIGHT; White Blood Cell Scan OK (OK)
[2022-01-01] MEDS ORDERED: LIDOCAINE 1% W/EPI 1:100,000 MDV 50 ML VIAL ONE (12:47)
[2022-01-01] MEDS ORDERED: MAGNESIUM SULFATE 1 gm IVPB 1 GM/100 ML BAG IV ONE (12:58)
--- NOTE | 2022-01-01 13:00 | RAD REPORT ---
EXAM DESCRIPTION: RAD - Knee Right 3 View - 01/01/2022 12:31 pm CLINICAL HISTORY: Right knee pain FINDINGS: No fracture or dislocation is seen. Moderate osteoarthritis medial compartment consisting of osteophytes, joint space narrowing and subch ondral sclerosis. Vascular calcifications are present
--- NOTE | 2022-01-01 13:33 | RAD REPORT ---
EXAM DESCRIPTION: USExtrem Venous W Compress Bil01/01/2022 1:17 pm CLINICAL HISTORY: Leg pain COMPARISON: none FINDINGS: Echogenic material consistent with acute thrombus is present right popliteal. The vein is not compressible. The right common femoral, superficial femoral posterior tibial veins are The left common femoral, superficial femoral, popliteal and posterior tibial veins are compressible a nd demonstrate augmentation. Doppler demonstrates good flow. Grayscale, color and spectral analysis performed on all vessels IMPRESSION: Acute thrombus right popliteal vein
[2022-01-01] MEDS ORDERED: APIXABAN 5 MG TABLET ONE (13:48)
[2022-01-01 14:51] LABS: Urine Blood Trace-intact (Negative); Urine Glucose Trace (Negative); Urine Protein 2+ (Negative); Urine pH 5.5 (5.0-7.0)
--- NOTE | 2022-01-01 15:56 | P.CNS ---
Date of Consult: 01/01/22 History of Present Illness: Pt is a 71 y/o female with past medical hx of hypertension, esrd on tts sent to the ED for management of malfunctioning dialysis access. Cathflo was attempted but failed to restore flow. Pt was subsequently sent to the ED. Pt was abot 4kg above dry weight and complaining of lorelei le discomfort I have been consulted for hemodialysis needs. Allergies No Known Allergies Allergy (Verified 09/06/13 22:37) Home Medications: Apixaban [Eliquis *] 2.5 mg PO BID 04/14/20 Calcitrol [Rocaltrol*] 0.25 mcg PO DAILY 04/14/20 Furosemide [Lasix] 80 mg PO BID 04/14/20 Hydralazine HCl [Apresoline] 25 mg PO Q8H 04/14/20 Isosorbide Mononitrate [Isosorbide Mononitrate ER] 60 mg PO DAILY 04/14/20 Pramipexole [Mirapex*] 1 mg PO BEDTIME 04/14/20 Semaglutide [Ozempic] 0.25 mg SQ SEECOM 04/14/20 Aspirin 81 mg PO DAILY 11/27/21 Budesonide [Budesonide EC] 3 mg PO TID 11/27/21 Carvedilol [Coreg] 25 mg PO BID 11/27/21 Escitalopram [Lexapro*] 10 mg PO BEDTIME 11/27/21 Insulin Aspart [Novolog Flexpen] 8 unit SQ TIDWM 11/27/21 Insulin Glargine,Hum.rec.anlog [Lantus] 55 unit SQ DAILY 11/27/21 Pantoprazole [Protonix Tab*] 40 mg PO DAILY 11/27/21 Trazodone HCl 100 mg PO BEDTIME 11/27/21 - Past Medical/Surgical History Diabetic: Yes -: Diabetes mellitus type 2-insulin dependent -: Rheumatoid arthritis -: Hypertension -: Hyperlipidemia -: Chronic congestive heart failure-unknown EF -: Chronic kidney disease stage 4 -: CAD -: L ankle fusion -: hysterectomy -: Dialysis catheter placement and removal Psychosocial/ Personal History: Patient lives with her - Social History Smoking Status: Unknown if ever smoked Alcohol use: No CD- Drugs: No Caffeine use: No Physical Examination General: Alert, In no apparent distress HEENT: Atraumatic Neck: Supple, 2+ carotid pulse no bruit, No LAD, Without JVD or thyroid abnormality Respiratory: Clear to auscultation bilaterally Cardiovascular: Edema Gastrointestinal: Normal bowel sounds, Soft and benign, Non-distended Musculoskeletal: Warmth Integumentary: No rashes Neurological: Normal gait, Normal speech, Normal tone, Normal affect Laboratory Data (last 24 hrs) 01/01/22 11:30: PT 15.2 H, INR 1.37 01/01/22 11:30: WBC 19.0 H, Hgb 10.6 L, Hct 33.5 L, Plt Count 361 01/01/22 11:30: Sodium 133 L, Potassium 3.1 L, BUN 45 H, Creatinine 4.65 H, Glucose 272 H, Magnesium 1.7 L, Total Bilirubin 0.4, AST 8 L, ALT < 10 L, Alkaline Phosphatase 101 Conclusions/Impression: Problems Malfunctioning dialysis access ESRD Hypertension Hypervolemia Anemia Plan Dialysis ordered for once access functionality is restored. HD orders in; discussed with HD nurse. Cathflo to be attenpted if functionality unrestoredc Renal diet 1l fluid restriction.
[2022-01-01] MEDS ORDERED: ACETAMINOPHEN 500 MG TAB PO PRN (16:00)
[2022-01-01] MEDS ORDERED: ONDANSETRON 4 MG/2 ML VIAL IV PRN (16:00)
--- NOTE | 2022-01-01 16:07 | P.HP ---
Certification for Inpatient Patient admitted to: Inpatient With expected LOS: >2 Midnights Patient will require the following post-hospital care: None Practitioner: I am a practitioner with admitting privileges, knowledge of patient current condition, hospital course, and medical plan of care. Services: Services provided to patient in accordance with Admission requirements found in Title 42 Section 412.3 of the Code of Federal Regulations Patient History Date of Service: 01/01/22 Reason for admission: UTI;TESSIO CATHETER MALFUNCTION History of Present Illness: Patient is a 71-year-old female with history of end-stage renal disease who came to the hospital with hemodialysis catheter not functioning. Patient is also having pain in the right knee. Patient has swelling in the right knee. Patient also with some mild lower extremity edema. Patient was evaluated and we did an Angiocath to the hemodialysis catheter and it is functioning. We will try to get it dialysis today. We will speak to nephrology, Dr. Cohn. Patient right knee also swollen. Plan to do arthrocentesis. May need orthopedic consultation. Allergies No Known Allergies Allergy (Verified 01/02/22 02:33) Home Medications: Apixaban [Eliquis *] 2.5 mg PO BID 04/14/20 Calcitrol [Rocaltrol*] 0.25 mcg PO DAILY 04/14/20 Furosemide [Lasix] 80 mg PO BID 04/14/20 Hydralazine HCl [Apresoline] 25 mg PO Q8H 04/14/20 Isosorbide Mononitrate [Isosorbide Mononitrate ER] 60 mg PO DAILY 04/14/20 Pramipexole [Mirapex*] 1 mg PO BEDTIME 04/14/20 Semaglutide [Ozempic] 0.25 mg SQ SEECOM 04/14/20 Aspirin 81 mg PO DAILY 11/27/21 Budesonide [Budesonide EC] 3 mg PO TID 11/27/21 Carvedilol [Coreg] 25 mg PO BID 11/27/21 Escitalopram [Lexapro*] 10 mg PO BEDTIME 11/27/21 Insulin Aspart [Novolog Flexpen] 10 unit SQ TIDWM 11/27/21 Insulin Glargine,Hum.rec.anlog [Lantus] 40 unit SQ DAILY 11/27/21 Pantoprazole [Protonix Tab*] 40 mg PO DAILY 11/27/21 Trazodone HCl 100 mg PO BEDTIME 11/27/21 Doxazosin Mesylate 4 mg PO BID 01/02/22 Gentamycin 1 tammie TOP DAILY 01/02/22 Melatonin 10 mg PO BEDTIME 01/02/22 Sevelamer Carbonate [Renvela*] 2 tab PO TIDWM 01/02/22 - Past Medical/Surgical History Diabetic: Yes -: Diabetes mellitus type 2-insulin dependent -: Rheumatoid arthritis -: Hypertension -: Hyperlipidemia -: Chronic congestive heart failure-unknown EF -: Chronic kidney disease stage 4 -: CAD -: L ankle fusion -: hysterectomy -: Dialysis catheter placement and removal Psychosocial/ Personal History: Patient lives with her - Family History Father Family History: Reviewed- Non-Contributory - Social History Smoking Status: Former smoker Alcohol use: No CD- Drugs: No Caffeine use: No Review of Systems 10-point ROS is otherwise unremarkable Physical Examination - Physical Exam General: Alert, In no apparent distress, Oriented x3 HEENT: Atraumatic, PERRLA, Mucous membr. moist/pink, EOMI, Sclerae nonicteric Neck: Supple, 2+ carotid pulse no bruit, No LAD, Without JVD or thyroid abnormality Respiratory: Clear to auscultation bilaterally, Normal air movement Cardiovascular: Regular rate/rhythm, Normal S1 S2 Gastrointestinal: Normal bowel sounds, Soft and benign, Non-distended, No tenderness Musculoskeletal: Swelling, Erythema, Tenderness Integumentary: No rashes, Tenderness/swelling Neurological: Normal speech, Normal tone, Sensation intact, Cranial nerves 3-12 intact, Normal affect, Abnormal gait, Abnormal strength Lymphatics: No axilla or inguinal lymphadenopathy - Studies Laboratory Data (last 24 hrs) 01/01/22 11:30: PT 15.2 H, INR 1.37 01/01/22 11:30: WBC 19.0 H, Hgb 10.6 L, Hct 33.5 L, Plt Count 361 01/01/22 11:30: Sodium 133 L, Potassium 3.1 L, BUN 45 H, Creatinine 4.65 H, Glucose 272 H, Magnesium 1.7 L, Total Bilirubin 0.4, AST 8 L, ALT < 10 L, Alkaline Phosphatase 101 Assessment & Plan - Problems (Diagnosis) (1) Septic arthritis Current Visit: Yes Status: Acute (2) Complications, dialysis, catheter, mechanical Current Visit: Yes Status: Acute (3) ESRD (end stage renal disease) Current Visit: Yes Status: Acute (4) Diabetes Current Visit: No Status: Acute - Plan PLAN: 1. Continue with IV antibiotic 2. Continue with local wound care 3. Orthopedic consultation 4. Nephrology consultation for hemodialysis 5. Monitor CBC 6. Strict blood sugar monitoring 7. Pain control 8. GI and DVT prophylaxis Discharge Plan: Home Plan to discharge in: Greater than 2 days - Advance Directives Does patient have a Living Will: No Does patient have a Durable POA for Healthcare: No - Code Status/Comfort Care Code Status Assessed: Yes Code Status: Full Code Critical Care: No Time Spent Managing PTS Care (In Minutes): 45
[2022-01-01] MEDS ORDERED: Levofloxacin 750mg IV 750 MG/150 ML BAG IV ONE (17:00)
[2022-01-01] MEDS ORDERED: PIPER TAZO 2.25 GM in NA CHLORIDE 0.9% 50 ML IV SCH (17:00)
[2022-01-01 17:54] LABS: Appearance VERY TURBID (CLEAR); Body Fluid Source SYNOVIAL; Body Fluid WBC 105586 /mm^3; Color of fluid Yellow (COLORLESS)
[2022-01-01] MEDS: PIPER TAZO 3.375 GM in NA CHLORIDE 0.9% 100 ML IV SCH (21:54)
[2022-01-01] MEDS: MORPHINE 2 MG/ML SYR IV PRN (21:55)
[2022-01-02] MEDS: MORPHINE 2 MG/ML SYR IV PRN ×2 (03:55→19:49)
[2022-01-02 03:58] LABS: Absolute Lymphocytes (CBC) 1.5 K/uL (0.7-4.9); Hematocrit 29.5 % (36.0-45.0); Lymphocytes % 11.1 % (15.3-44.8); MPV 7.3 fL (7.6-11.3); RBC Red Blood Cell Count 3.61 M/uL (3.86-4.86)
[2022-01-02 04:21] LABS: AST/SGOT 6 U/L (15-37); Albumin 1.6 g/dL (3.4-5.0); Alkaline Phosphatase 96 U/L (45-117); BUN Blood Urea Nitrogen 52 mg/dL (7-18); Bicarbonate 21 mmol/L (21-32); Bilirubin Total 0.2 mg/dL (0.2-1.0); Glomerular Filtration Rate 9 ml/min (=/>90); Glucose Level 208 mg/dL (74-106); Potassium 3.2 mmol/L (3.5-5.1); Protein, Total 5.4 g/dL (6.4-8.2); Sodium Level 132 mmol/L (136-145)
[2022-01-02 04:25] LABS: ALT/SGPT < 10 U/L (12-78)
[2022-01-02] MEDS ORDERED: NA CHLORIDE 0.9% 1,000 ML ONE (07:45)
[2022-01-02] MEDS: KCL 20 MEQ/100 mL IVPB 20 MEQ/100 ML BAG IV SCH ×2 (08:00→10:00)
[2022-01-02] MEDS ORDERED: propofoL 200 MG/20 ML VIAL IV ONE (08:03)
[2022-01-02] MEDS ORDERED: LIDOCAINE 1% MPF 5 ML VIAL ONE (08:03)
[2022-01-02] MEDS ORDERED: Phenylephrine HCl 10 MG/ML 1 ML VIAL ONE (08:04)
[2022-01-02] MEDS ORDERED: ONDANSETRON 4 MG/2 ML VIAL ONE (08:04)
[2022-01-02] MEDS ORDERED: dexAMETHasone 10 MG/ML VIAL ONE ×2 (08:04)
[2022-01-02] MEDS ORDERED: FENTANYL CITR 100 MCG/2 ML ONE (08:24)
[2022-01-02] MEDS: PIPER TAZO 3.375 GM in NA CHLORIDE 0.9% 100 ML IV SCH ×3 (08:28→19:49)
[2022-01-02] MEDS: HYDROMORPHONE HCL 1 MG/ML INJ ONE ×3 (09:33→09:54)
[2022-01-02] MEDS ORDERED: POTASSIUM 25 MEQ EFFERV TAB PO ONE (11:00)
--- NOTE | 2022-01-02 11:35 | OP ---
Surgeon: Catarino Ng MD Preoperative Diagnosis: Probable septic right knee. Postoperative Diagnosis: Probable septic right knee. Procedure Performed: Open arthrotomy and irrigation and debridement of right knee. Csr Technician: None. Anesthesia: General. Disposition: To recovery room, stable. Procedure In Detail: The patient was taken to the operative suite, placed in supine position, induce d with anesthesia. The right knee was prepped and draped in usual sterile fashion. The patient was taken to the operative suite as she presented with failure of her dialysis catheter, severe knee pain , and effusion. Aspiration revealed a white blood cell count of 105,000. Presumably, this is a sept ic knee. She had a median parapatellar arthrotomy created and irrigated with 3000 cc of sterile sali ne solution. Synovectomy was performed as well. Cultures were sent. The patient tolerated the proc edure well. A layered closure was performed with antimicrobial 0 Vicryl to close the capsule and art hrotomy, and the skin closed with 2-0 nylon in horizontal mattress fashion. Prior to wound closure, a double-threaded medium Hemovac drain was placed. Minimal drainage was noted at the completion of p rocedure. A sterile dressing applied and a knee immobilizer. The patient was reversed from anesthesia and is in the recovery room at this [facility]. MARTIN/ERI Voice ID: [id number] Report ID: [id number]
[2022-01-02] MEDS ORDERED: PNEUMOCOCCAL VACCINE 0.5 ML IMVAC ONE (18:00)
--- NOTE | 2022-01-02 18:16 | P.PN ---
Subjective Date of Service: 01/02/22 Subjective: No new changes, No C/O voiced, Improving Patient's dialysis catheter is not functioning properly per dialysis nurse. Spoke with Nephrology and they are asking for a new test CO catheter placement. Spoke with General surgery and they will plan to place this on Monday. Continue to hold Eliquis. Review of Systems 10-point ROS is otherwise unremarkable Physical Examination - Vital Signs Temperature: 97 F Blood Pressure: 115/39 Pulse: 80 Respirations: 16 Pulse Ox (%): 98 - Physical Exam General: Alert, In no apparent distress HEENT: Atraumatic, PERRLA, EOMI Neck: Supple, JVD not distended Respiratory: Clear to auscultation bilaterally, Normal air movement Cardiovascular: Regular rate/rhythm, Normal S1 S2 Gastrointestinal: Normal bowel sounds, No tenderness Musculoskeletal: No tenderness Integumentary: No rashes Neurological: Normal speech, Normal tone, Normal affect Lymphatics: No axilla or inguinal lymphadenopathy - Studies Laboratory Data (last 24 hrs) 01/01/22 11:30: Uric Acid 6.6 H Medications List Reviewed: Yes Assessment & Plan - Problems (Diagnosis) (1) Septic arthritis Current Visit: Yes Status: Acute (2) Complications, dialysis, catheter, mechanical Current Visit: Yes Status: Acute (3) ESRD (end stage renal disease) Current Visit: Yes Status: Acute (4) Diabetes Current Visit: No Status: Acute - Plan PLAN: 1. Continue with IV antibiotic 2. Continue with local wound care 3. Orthopedic consultation 4. Nephrology consultation for hemodialysis 5. Monitor CBC 6. Strict blood sugar monitoring 7. Pain control 8. GI and DVT prophylaxis Discharge Plan: Home Plan to discharge in: Greater than 2 days - Advance Directives Does patient have a Living Will: No Does patient have a Durable POA for Healthcare: No - Code Status/Comfort Care Code Status: Full Code Critical Care: No Time Spent Managing PTS Care (In Minutes): 35
[2022-01-02] MEDS: HYDROCODONE/APAP 5/325 MG TAB PO PRN (22:12)
[2022-01-02] MEDS ORDERED: VANCOMYCIN 1 GM in NA CHLORIDE 0.9% 250 ML IVPB SCH (23:45)
[2022-01-03] LABS: MPV 7.1 fL (7.6-11.3)
[2022-01-03 00:03] LABS: Protime INR 1.42
[2022-01-03] MEDS: HEPARIN/D5W 25,000 UNIT/500 ML BAG IV SCH ×2 (00:21→20:06)
[2022-01-03 07:13] LABS: Absolute Lymphocytes (CBC) 1.9 K/uL (0.7-4.9); Hematocrit 34.4 % (36.0-45.0); Lymphocytes % 12.9 % (15.3-44.8); MCV 82.2 fL (80-100); MPV 7.4 fL (7.6-11.3); RBC Red Blood Cell Count 4.19 M/uL (3.86-4.86)
[2022-01-03 07:32] LABS: Magnesium 2.1 mg/dL (1.8-2.4); Potassium 4.1 mmol/L (3.5-5.1)
[2022-01-03 08:28] LABS: Anisocytosis 1+; Blood Morphology Comment NOTED (NOT SEEN); Platelet Estimate ADEQ; White Blood Cell Scan OK (OK)
[2022-01-03 08:29] LABS: Macrocytosis SLIGHT
[2022-01-03] MEDS: PIPER TAZO 3.375 GM in NA CHLORIDE 0.9% 100 ML IV SCH ×2 (09:00→19:59)
[2022-01-03] MEDS ORDERED: VANCOMYCIN 1.25 GM in NA CHLORIDE 0.9% 250 ML IVPB ONE (12:00)
--- NOTE | 2022-01-03 12:07 | P.PN ---
Subjective Date of Service: 01/03/22 Chief Complaint: UTI;TESSIO CATHETER MALFUNCTION Subjective: No new changes (s/p knee i&d, pod1) Review of Systems 10-point ROS is otherwise unremarkable Physical Examination - Vital Signs Temperature: 96.1 F Blood Pressure: 97/46 Pulse: 80 Respirations: 18 Pulse Ox (%): 99 - Physical Exam Musculoskeletal: Other (right knee dressings C/D/I, knee immobilizer ob, drain intact) - Studies wbc 14.6 wound cultures pending Microbiology Data (last 24 hrs): 01/01/22 14:50 Catheterized Urine [place] Count - Final >100,000 CFU/ML. 01/01/22 14:50 Catheterized Urine - Final Klebsiella Oxytoca Escherichia Coli Medications List Reviewed: Yes Assessment And Plan - Current Problems (Diagnosis) (1) Septic arthritis Current Visit: Yes Status: Acute Qualifiers: Septic arthritis location: knee Septic arthritis organism: due to unspecified organism Laterality: right Qualified Code(s): M00.9 - Pyogenic arthritis, unspecified - Plan d/c drain tomorrow AM Plan to discharge in: 48 Hours
--- NOTE | 2022-01-03 14:29 | P.PN ---
Subjective Date of Service: 01/03/22 Chief Complaint: UTI;TESSIO CATHETER MALFUNCTION Subjective: Improving No acute events overnight. She reports that she was told by the dialysis nurse that her Tessio catheter is now working appropriately. She reports persistent right knee pain, which is slightly better than yesterday. Review of Systems 10-point ROS is otherwise unremarkable Musculoskeletal: Leg Pain (right knee) Physical Examination - Vital Signs Temperature: 96.1 F Blood Pressure: 97/46 Pulse: 80 Respirations: 18 Pulse Ox (%): 99 - Physical Exam General: Alert, In no apparent distress, Oriented x3 HEENT: Atraumatic, PERRLA, Mucous membr. moist/pink, EOMI, Sclerae nonicteric Neck: Supple, JVD not distended Respiratory: Clear to auscultation bilaterally, Normal air movement Cardiovascular: No edema, Regular rate/rhythm, Normal S1 S2, No gallops, No rubs, No murmurs Gastrointestinal: Normal bowel sounds, Soft and benign, Non-distended, No tenderness, No rebound, No guarding Musculoskeletal: No clubbing, Other (right knee is covered in clean wound dressing.) Integumentary: No rashes Neurological: Normal speech, Cranial nerves 3-12 intact, Normal affect - Studies Microbiology Data (last 24 hrs): 01/01/22 14:50 Catheterized Urine [place] Count - Final >100,000 CFU/ML. 01/01/22 14:50 Catheterized Urine - Final Klebsiella Oxytoca Escherichia Coli Medications List Reviewed: Yes Assessment And Plan - Plan # Sepsis secondary to Right Knee Septic Arthritis and Klebsiella Oxytoca and E. Coli Urinary Tract Infection She met SIRS criteria based on temperature < 96.8 F, HR > 90 bpm, and WBC > 12,000 and the suspected source is septic arthritis and a UTI. - Sepsis order set was initiated - Initial Lactate was 1.0, trend - Blood cultures drawn - Broad spectrum antibiotics started: Vancomycin + Levofloxacin - In regards to fluids: - 30 mL/kg of IV fluids was not administered given SBP > 90, MAP > 65, lactic acid < 4 - Orthopedic Surgery consulted - recommendations appreciated - Consulted Infectious Diseases consulted and spoke with Dr. Montelongo - recommendations appreciated # End-Stage Renal Disease on TuThSa iHD with Malfunctioning Tessio Catheter - Per dialysis nurse, the Tessio catheter is working correctly - Appreciate Nephrology recommendations regarding dialysis - Spoke with Dr. Allen, who stated no need to proceed with surgery # Acute Right Popliteal Deep Venous Thrombosis - Continue heparin drip for now in case Tessio ultimately needs to be replaced - Resume apixaban at discharge # Chronic Compensated Congestive Heart Failure # Coronary Artery Disease # Hypertension # Hyperlipidemia Resume home medications once verified Anthony White M.D. Discharge Plan: Home Plan to discharge in: 48 Hours
[2022-01-03] MEDS ORDERED: Levofloxacin500mg IV 500 MG/100 ML BAG IV SCH (17:00)
[2022-01-03] MEDS: HYDROCODONE/APAP 5/325 MG TAB PO PRN (18:19)
--- NOTE | 2022-01-03 19:18 | CON ---
History Of Present Illness: Patient is a 71-year-old female coming in with right knee infection. Sh e has significant history of end-stage renal disease on hemodialysis catheter which was not functioni ng. The patient initially had swelling, pain and discomfort to the right knee area. Her urine cultu res are growing Klebsiella oxytoca and E coli more than 100,000. The patient denies any symptoms of burning urination. Past Medical History: End-stage renal disease, diabetes mellitus, rheumatoid arthritis, hypertension , hyperlipidemia, congestive heart failure, chronic kidney disease, chronic left ankle fusion, hyster ectomy, dialysis catheter placement and removal. Social History: Nonsmoker, nondrinker. Family History: Noncontributory. Medications: Vancomycin, Zosyn and Levaquin. Review of Systems: A 10-point review was performed. Physical Examination: General: This is a 71-year-old female sitting in easy chair, not in any acute cardiopulmonary distre ss. Vital Signs: Reviewed. HEENT: Unremarkable. Neck: Supple. Lungs: Basal crackles. Heart: S1, S2. Regular. Abdomen: Soft, nontender. Bowel sounds present. Extremity: Right knee in surgical wrap. Patient had arthrotomy and irrigation, debridement of right knee performed on 14th yesterday. Laboratory Data: Patient's white blood cell count was 105,000. Lab data shows WBC 14.6, hemoglobin 10.9, platelets are 397. Chemistry shows sodium 133, potassium 4 .1, chloride 98, bicarb 26, BUN 39, creatinine 3.3, glucose is 339. Albumin level is 1.6. Procal is 3.8. Assessment And Plan: Septic right knee in a patient with end-stage renal disease and possible nonfun ctioning dialysis catheter, possible source of infection. Urine is growing Klebsiella oxytoca and E coli, but as patient is on dialysis and patient has no symptoms of urinary tract infection, we will r ecommend to hold off treatment of this microorganism. Continue vancomycin and Zosyn. Pending cultur e results from the knee aspirate. Consider changing the dialysis catheter. We will follow the patie nt closely. Thank you Dr. Pfeiffer for consult. NF/MODL Voice ID: [id number] Report ID: [id number]
[2022-01-03] MEDS: MORPHINE 2 MG/ML SYR IV PRN (20:05)
[2022-01-04 03:25] LABS: Absolute Lymphocytes (CBC) 2.7 K/uL (0.7-4.9); Hematocrit 30.2 % (36.0-45.0); Lymphocytes % 24.3 % (15.3-44.8); MCV 79.8 fL (80-100); MPV 6.9 fL (7.6-11.3); RBC Red Blood Cell Count 3.78 M/uL (3.86-4.86)
[2022-01-04 03:39] LABS: Potassium 3.9 mmol/L (3.5-5.1)
--- NOTE | 2022-01-04 06:43 | P.PN ---
Subjective Date of Service: 01/04/22 Chief Complaint: UTI;TESSIO CATHETER MALFUNCTION Pt doing well. No complaints. Waiting for cultures. Review of Systems 10-point ROS is otherwise unremarkable Physical Examination - Vital Signs Temperature: 97.8 F Blood Pressure: 140/62 Pulse: 79 Respirations: 15 Pulse Ox (%): 96 - Physical Exam General: Alert, In no apparent distress HEENT: Atraumatic, PERRLA, EOMI Neck: Supple, JVD not distended Respiratory: Clear to auscultation bilaterally, Normal air movement Cardiovascular: Edema Capillary refill: <2 Seconds Gastrointestinal: Normal bowel sounds, No tenderness Musculoskeletal: Swelling Integumentary: No rashes - Studies Microbiology Data (last 24 hrs): 01/01/22 14:50 Catheterized Urine [place] Count - Final >100,000 CFU/ML. 01/01/22 14:50 Catheterized Urine - Final Klebsiella Oxytoca Escherichia Coli Medications List Reviewed: Yes Assessment And Plan - Plan Problems Malfunctioning dialysis access ESRD Hypertension Hypervolemia Anemia UTI Septic athritis Plan Monitor off HD today, will maintain outpt HD schedule Started on phos binder envela Will start on epogen Continue antibiotic for uti adn septic athritis pending discharge, can work with HD unit on antibiotic administration Consider inpt rehab as needed, pt motivated to get stronger Renal diet 1l fluid restriction.
[2022-01-04] MEDS: SEVELAMER CARBONATE 800 MG TABLET PO SCH ×3 (08:00→17:19)
--- NOTE | 2022-01-04 08:23 | EKG ---
Test Date: 2022-01-01 Test Time: 11:37:26 Electric Engine Mechanic: MB MEASUREMENT RESULTS: Intervals: Rate: 80 IN: QRSD: 146 QT: 472 QTc: 544 [place]: P: IN: QRS: -73 T: 82 INTERPRETIVE STATEMENTS: Wide QRS rhythm Left axis deviation Nonspecific intraventricular block Inferior infarct, age undetermined Anterolateral infarct, age undetermined Abnormal ECG Compared to ECG 12/04/2021 17:51:43 Uncertain supraventricular rhythm now present Left-axis deviation now present Sinus rhythm no longer present Right bundle-branch block no longer present Myocardial infarct finding still present Electronically Signed On 01-04-22 08:12:35 CDT by Aakash Ashford
[2022-01-04] MEDS: PIPER TAZO 3.375 GM in NA CHLORIDE 0.9% 100 ML IV SCH (09:00)
[2022-01-04] MEDS ORDERED: ALTEPLASE 2 MG/VIAL IV ONE ×2 (10:00→11:00)
[2022-01-04] MEDS ORDERED: ALTEPLASE 2 MG/VIAL IV SCH (11:00)
[2022-01-04] MEDS ORDERED: WATER FOR INJ,STERILE 10 ML IV SCH (11:00)
[2022-01-04] MEDS: HYDROCODONE/APAP 5/325 MG TAB PO PRN ×2 (11:01→19:43)
--- NOTE | 2022-01-04 14:54 | PN ---
Subjective: The patient is in dialysis room getting dialyzed. No new complaints. Objective: Vital Signs: Reviewed. Lungs: Basal crackles. Heart: S1, S2. Regular. Abdomen: Soft, nontender. Bowel sounds present. Extremities: Right leg wound noted. Sutures are in place. No signs of active infection outside are a. MARISSA drain in place. Laboratory Data: WBC 11,000 down from 14.6, hemoglobin 9.8, platelets are 383. Chemistry shows sodi um 132, potassium 3.9, chloride 95, bicarb 25, BUN 54, creatinine 4.8, glucose is 351. Micro data sh ows urine culture E coli and Klebsiella oxytoca. Blood cultures and wound cultures are pending. The patient is currently getting cefepime and vancomycin. Assessment And Plan: Septic arthritis, leukocytosis improving. Continue vancomycin and cefepime tot al of 6 weeks. Continue supportive care and monitor for signs of infection. Remove MARISSA drain when dr felipe is less than 5 cc per day. We will follow the patient as needed. NF/MODL Voice ID: [id number] Report ID: [id number]
--- NOTE | 2022-01-04 16:04 | P.PN ---
Subjective Date of Service: 01/04/22 Chief Complaint: UTI;TESSIO CATHETER MALFUNCTION Subjective: Improving No acute events overnight. She was seen on hemodialysis this morning. The catheter was not working initially, but became functional following Cath-scot. Per Dr. Cohn, preference is not to get PICC line if possible. Discussed with Dr. Montelongo, who stated that he can switch antiobiotics to vancomycin + cefazolin to be given with dialysis. Per Dr. Allen, plan for HD catheter excahnge angelika orrow given recurrent clotting. Review of Systems 10-point ROS is otherwise unremarkable Musculoskeletal: Leg Pain (right knee) Physical Examination - Vital Signs Temperature: 97.1 F Blood Pressure: 153/51 Pulse: 80 Respirations: 18 Pulse Ox (%): 95 - Studies Medications List Reviewed: Yes Assessment And Plan - Plan - Physical Exam General: Alert, In no apparent distress, Oriented x3 HEENT: Atraumatic, PERRLA, Mucous membr. moist/pink, EOMI, Sclerae nonicteric Neck: Supple, JVD not distended Respiratory: Clear to auscultation bilaterally, Normal air movement Cardiovascular: No edema, Regular rate/rhythm, Normal S1 S2, No gallops, No rubs, No murmurs Gastrointestinal: Normal bowel sounds, Soft and benign, Non-distended, No tenderness, No rebound, No guarding Musculoskeletal: No clubbing, Other (right knee is slightly swollen, with minimal erythema and no drainage) Integumentary: No rashes Neurological: Normal speech, Cranial nerves 3-12 intact, Normal affect # Sepsis secondary to Right Knee Septic Arthritis and Klebsiella Oxytoca and E. Coli Urinary Tract Infection She met SIRS criteria based on temperature < 96.8 F, HR > 90 bpm, and WBC > 12,000 and the suspected source is septic arthritis and a UTI. - Sepsis order set was initiated - Initial Lactate was 1.0, trend - Blood cultures drawn - Broad spectrum antibiotics started: Vancomycin + Levofloxacin - In regards to fluids: - 30 mL/kg of IV fluids was not administered given SBP > 90, MAP > 65, lactic acid < 4 - Orthopedic Surgery consulted - recommendations appreciated - Consulted Infectious Diseases consulted and spoke with Dr. Montelongo - recommendations appreciated # End-Stage Renal Disease on TuThSa iHD with Malfunctioning Tessio Catheter - Spoke with Dr. Allen, plan for catheter exchange tomorrow - Appreciate Nephrology recommendations regarding dialysis # Acute Right Popliteal Deep Venous Thrombosis - Continue heparin drip for now - hold at midnight - Resume apixaban at discharge # Chronic Compensated Congestive Heart Failure # Coronary Artery Disease # Hypertension # Hyperlipidemia Resume home medications once verified Anthony White M.D.
[2022-01-04] MEDS ORDERED: CEFEPIME 1 GM in NA CHLORIDE 0.9% 100 ML IV SCH (18:00)
--- NOTE | 2022-01-04 18:07 | P.PN ---
Subjective Date of Service: 01/04/22 Chief Complaint: UTI;TESSIO CATHETER MALFUNCTION Subjective: No new changes Review of Systems 10-point ROS is otherwise unremarkable Physical Examination - Vital Signs Temperature: 97.1 F Blood Pressure: 153/51 Pulse: 80 Respirations: 18 Pulse Ox (%): 95 - Physical Exam Musculoskeletal: Other (dressings changed wound was healthy, not hot, not red no drainage, well aproximated) - Studies Medications List Reviewed: Yes Assessment And Plan - Current Problems (Diagnosis) (1) Septic arthritis Current Visit: Yes Status: Acute Qualifiers: Septic arthritis location: knee Septic arthritis organism: due to unspecified organism Laterality: right Qualified Code(s): M00.9 - Pyogenic arthritis, unspecified - Plan final knee cultures negative wound looks good, follow up in office 2 weeks post op for suture removal. drain pulled this morning.
[2022-01-05 03:54] LABS: Absolute Lymphocytes (CBC) 2.2 K/uL (0.7-4.9); Hematocrit 31.2 % (36.0-45.0); Lymphocytes % 24.5 % (15.3-44.8); MCV 81.9 fL (80-100); MPV 7.1 fL (7.6-11.3); RBC Red Blood Cell Count 3.82 M/uL (3.86-4.86)
[2022-01-05 04:05] LABS: Potassium 3.7 mmol/L (3.5-5.1)
[2022-01-05] MEDS ORDERED: D50W 25 GM/50 ML SYRINGE IV PRN (05:06)
[2022-01-05] MEDS ORDERED: GLUCAGON 1 MG/VIAL IM PRN (05:06)
[2022-01-05] MEDS ORDERED: D10W 125 ML IV PRN (05:18)
[2022-01-05] MEDS: INSULIN -REGULAR HUMAN 50 UNIT/0.5 ML ML SQ SCH ×5 (06:01→21:08)
[2022-01-05] MEDS ORDERED: DEXTROSE 10%-WATER 125 ML IV PRN (08:00)
[2022-01-05] MEDS: SEVELAMER CARBONATE 800 MG TABLET PO SCH ×3 (08:00→17:00)
[2022-01-05] MEDS ORDERED: CEFAZOLIN SODIUM 1 GM/VIAL ONE (08:17)
[2022-01-05] MEDS ORDERED: NA CHLORIDE 0.9% 500 ML ONE (08:17)
[2022-01-05] MEDS ORDERED: BUPIVACAINE 0.25% PF 10 ML VIAL ONE (08:47)
[2022-01-05] MEDS ORDERED: HEPARIN 5000 UNIT/ML 1 ML VIAL ONE (08:48)
[2022-01-05] MEDS ORDERED: NA CHLORIDE 0.9% 0 ML ONE (08:48)
[2022-01-05] MEDS ORDERED: propofoL 200 MG/20 ML VIAL IV ONE ×4 (10:46→13:00)
[2022-01-05] MEDS ORDERED: LIDOCAINE 2% MPF 5 ML VIAL ONE (10:47)
[2022-01-05] MEDS ORDERED: FENTANYL CITR 100 MCG/2 ML ONE (10:51)
[2022-01-05] MEDS ORDERED: ONDANSETRON 4 MG/2 ML VIAL ONE (10:52)
[2022-01-05] MEDS ORDERED: VANCOMYCIN 1.5 GM in NA CHLORIDE 0.9% 500 ML IVPB ONE (12:00)
[2022-01-05] MEDS ORDERED: ETOMIDATE 20 MG/10 ML VIAL IV ONE (12:54)
[2022-01-05] MEDS ORDERED: Phenylephrine HCl 10 MG/ML 1 ML VIAL ONE ×3 (13:21→13:58)
--- NOTE | 2022-01-05 13:37 | P.OP ---
Preoperative diagnosis: HD catheter dysfunction Postoperative diagnosis: HD catheter dysfunction Primary procedure: Attempted Placement of RIGHT Subclavian Tunnelled Hemodialysis Catheter Secondary procedure: microwire and flouroscopy utilized Anesthesia: GETA + Local Estimated blood loss: <2cc Specimen: none Findings: unable to advance wire to appropriate location Complications: None Transferred to: Recovery Room Condition: Good
[2022-01-05] MEDS ORDERED: EPHEDRINE SULF 50 MG/ML VIAL ONE (13:38)
--- NOTE | 2022-01-05 14:03 | RAD REPORT ---
EXAM DESCRIPTION: RAD - Fluoroscopy <1 Hour - 01/05/2022 1:48 pm FINDINGS: A single portable C-arm view was submitted from hemodialysis catheter placement procedure. Fluoro time was 0.1 minutes. Cumulative dose was 0.763 mGy.
--- NOTE | 2022-01-05 18:25 | P.PN ---
Subjective Date of Service: 01/05/22 Chief Complaint: UTI;TESSIO CATHETER MALFUNCTION No acute events overnight. She was seen postoperatively. She was appeared hemodynamically stable and was alert and oriented x4 to person, place, time, and situation. The procedure was complicated by an infiltrated midline, for which pr opofol and etomidate were administered into the interstitial space. Placement of the new hemodialysis catheter was unsuccessful. Per Dr. Allen, he recommended transfer to a facility with Vascular Surgery capabilities. Review of Systems 10-point ROS is otherwise unremarkable Physical Examination - Vital Signs Temperature: 97.0 F Blood Pressure: 141/37 Pulse: 80 Respirations: 16 Pulse Ox (%): 100 - Studies Medications List Reviewed: Yes Assessment And Plan - Plan - Physical Exam General: Alert, In no apparent distress, Oriented x3 HEENT: Atraumatic, PERRLA, Mucous membr. moist/pink, EOMI, Sclerae nonicteric Neck: Supple, JVD not distended Respiratory: Clear to auscultation bilaterally, Normal air movement Cardiovascular: No edema, Regular rate/rhythm, Normal S1 S2, No gallops, No rubs, No murmurs Gastrointestinal: Normal bowel sounds, Soft and benign, Non-distended, No tenderness, No rebound, No guarding Musculoskeletal: No clubbing, Other (right knee is covered in surgical dressing) Integumentary: No rashes Neurological: Normal speech, Cranial nerves 3-12 intact, Normal affect # Sepsis secondary to Right Knee Septic Arthritis and Klebsiella Oxytoca and E. Coli Urinary Tract Infection She met SIRS criteria based on temperature < 96.8 F, HR > 90 bpm, and WBC > 12,000 and the suspected source is septic arthritis and a UTI. - Sepsis order set was initiated - Initial Lactate was 1.0, trend - Blood cultures drawn - Broad spectrum antibiotics started: Vancomycin + Cefazolin - In regards to fluids: - 30 mL/kg of IV fluids was not administered given SBP > 90, MAP > 65, lactic acid < 4 - Orthopedic Surgery consulted - recommendations appreciated - Consulted Infectious Diseases consulted and spoke with Dr. Montelongo - recommendations appreciated # End-Stage Renal Disease on TuThSa iHD with Malfunctioning Tessio Catheter - Spoke with Dr. Allen, requested transfer for Vascular Surgery to replace catheter - For now catheter works when Cath-scot is administered - Appreciate Nephrology recommendations regarding dialysis # Acute Right Popliteal Deep Venous Thrombosis - Resume heparin drip once cleared by Surgery - Resume apixaban at discharge # Chronic Compensated Congestive Heart Failure # Coronary Artery Disease # Hypertension # Hyperlipidemia Resume home medications once verified Transferred to ICU for monitoring of respiratory status given infiltration of propofol and etomidate Anthony White M.D.
[2022-01-05] MEDS: HEPARIN/D5W 25,000 UNIT/500 ML BAG IV SCH (18:36)
[2022-01-05] MEDS: CEFAZOLIN 1 GM in NA CHLORIDE 0.9% 50 ML IVPB SCH (19:59)
[2022-01-06 05:18] LABS: Absolute Lymphocytes (CBC) 2.7 K/uL (0.7-4.9); Lymphocytes % 27.6 % (15.3-44.8); MCV 81.8 fL (80-100); MPV 6.9 fL (7.6-11.3); RBC Red Blood Cell Count 3.55 M/uL (3.86-4.86)
[2022-01-06 05:26] LABS: Potassium 3.4 mmol/L (3.5-5.1)
[2022-01-06] MEDS: INSULIN -REGULAR HUMAN 50 UNIT/0.5 ML ML SQ SCH ×4 (07:30→20:29)
[2022-01-06] MEDS ORDERED: LORazepam 2 MG/ML VIAL IV PRN (08:08)
[2022-01-06] MEDS: CEFAZOLIN 1 GM in NA CHLORIDE 0.9% 50 ML IVPB SCH (08:55)
[2022-01-06] MEDS: SEVELAMER CARBONATE 800 MG TABLET PO SCH ×3 (08:55→17:09)
--- NOTE | 2022-01-06 12:31 | P.PN ---
Subjective Date of Service: 01/06/22 Chief Complaint: UTI;TESSIO CATHETER MALFUNCTION No acute events overnight. She appears comfortable this morning. Her blood pressures have been soft, but she has been asymptomatic. She has had not pain at the midline site. Review of Systems 10-point ROS is otherwise unremarkable Musculoskeletal: Leg Pain (right knee) Physical Examination - Vital Signs Temperature: 97.8 F Blood Pressure: 101/21 Pulse: 80 Respirations: 15 Pulse Ox (%): 100 - Studies Medications List Reviewed: Yes Assessment And Plan - Plan - Physical Exam General: Alert, In no apparent distress, Oriented x3 HEENT: Atraumatic, PERRLA, Mucous membr. moist/pink, EOMI, Sclerae nonicteric Neck: Supple, JVD not distended Respiratory: Clear to auscultation bilaterally, Normal air movement Cardiovascular: No edema, Regular rate/rhythm, Normal S1 S2, No gallops, No rubs, No murmurs Gastrointestinal: Normal bowel sounds, Soft and benign, Non-distended, No tenderness, No rebound, No guarding Musculoskeletal: No clubbing, Other (right knee is covered in surgical dressing) Integumentary: No rashes Neurological: Normal speech, Cranial nerves 3-12 intact, Normal affect # Sepsis secondary to Right Knee Septic Arthritis and Klebsiella Oxytoca and E. Coli Urinary Tract Infection She met SIRS criteria based on temperature < 96.8 F, HR > 90 bpm, and WBC > 12,000 and the suspected source is septic arthritis and a UTI. - Sepsis order set was initiated - Initial Lactate was 1.0, trend - Blood cultures drawn - Broad spectrum antibiotics started: Vancomycin + Cefazolin - In regards to fluids: - 30 mL/kg of IV fluids was not administered given SBP > 90, MAP > 65, lactic acid < 4 - Orthopedic Surgery consulted - recommendations appreciated - Consulted Infectious Diseases consulted and spoke with Dr. Montelongo - recommendations appreciated # End-Stage Renal Disease on TuThSa iHD with Malfunctioning Tessio Catheter - Spoke with Dr. Allen and Dr. Cohn - since catheter works when Cath-scto is administered, can plan for outpatient Vascular Surgery appointment to replace catheter - Appreciate Nephrology recommendations regarding dialysis # Acute Right Popliteal Deep Venous Thrombosis - Resumed heparin drip per Surgery recs - Resume apixaban at discharge # Wide Pulse Pressure - Ordered TTE to evaluate for aortic regurgitation # Deconditioning - Consulted PT - recommended SNF placement - Appreciate case management # Chronic Compensated Congestive Heart Failure # Coronary Artery Disease # Hypertension # Hyperlipidemia Resume home medications once verified Currently in ICU for monitoring of respiratory status given infiltration of propofol and etomidate. Per pharmacy, if no respiratory depression or severe hypotension overnight, can plan for downgrade to Med/Surg tomorrow. Anthony White M.D.
[2022-01-06] MEDS ORDERED: WATER FOR INJ,STERILE 10 ML ONE (12:51)
[2022-01-06] MEDS ORDERED: CIPROFLOXACIN HCL 250 MG TAB PO SCH (13:00)
[2022-01-06] MEDS ORDERED: ALTEPLASE 2 MG/VIAL IV ONE (13:00)
[2022-01-06] MEDS ORDERED: DOXYCYCLINE 100 MG CAP PO ONE (13:00)
--- NOTE | 2022-01-06 13:57 | ECHO ---
HEIGHT: 5 ft 4 in WEIGHT: 156 lb 3 oz DATE OF STUDY: 01/06/[address]: Anthony White MD 2-DIMENSIONAL: YES M.MODE: YES DOPPLER: YES COLOR FLOW: YES TDS: NO PORTABLE: YES DEFINITY: NO BUBBLE STUDY: NO DIAGNOSIS: HYPOTENSION CARDIAC HISTORY: CATHERIZATION: NO SURGERY: NO PROSTHETIC VALVE: NO PACEMAKER: YES MEASUREMENTS (cm) DIASTOLIC (NORMALS) SYSTOLIC (NORMALS) IVSd 1.1 (0.6-1.2) LA Diam 2.0 (1.9-4.0) LVEF 55% LVIDd 5.4 (3.5-5.7) LVIDs 3.8 (2.0-3.5) %FS 29% LVPWd 1.2 (0.6-1.2) Ao Diam 2.9 (2.0-3.7) 2 DIMENSIONAL ASSESSMENT: RIGHT ATRIUM: NORMAL LEFT ATRIUM: ENLARGED RIGHT VENTRICLE: NORMAL LEFT VENTRICLE: NORMAL TRICUSPID VALVE: MITRAL VALVE: PULMONIC VALVE: NORMAL AORTIC VALVE: NORMAL PERICARDIAL EFFUSION: NONE AORTIC ROOT: NORMAL LEFT VENTRICULAR WALL MOTION: NORMAL DOPPLER/COLOR FLOW: MILD MITRAL AND TRICUSPID REGURGITATION. COMMENTS: NORMAL LEFT VENTRICULAR EJECTION FRACTION 55-60%. NORMAL WALL MOTION. MILD MITRAL AND TRICUSPID REGURGITATION. TECHNOLOGIST: Jacqueline DEVLIN
[2022-01-06] MEDS: HEPARIN/D5W 25,000 UNIT/500 ML BAG IV SCH (14:28)
--- NOTE | 2022-01-06 14:41 | PN ---
Subjective: The patient is lying in bed in ICU. Transferred to ICU for low blood pressure. No comp laints at this time. Objective: Vital Signs: Temperature 97, pulse 80, respirations 15, blood pressure 101/21. Lungs: Basal crackles. Heart: S1, S2. Regular. Abdomen: Soft, nontender. Bowel sounds present. Extremity: Trace edema. Laboratory Data: WBC 9.8, hemoglobin 9.5, platelets 300. Chemistry shows BUN 35, creatinine 3.57. Wound culture from the knee showing Klebsiella pneumoniae. Urine cultures are Klebsiella oxytoca and E coli. Assessment And Plan: 1.Septic knee arthritis secondary to Klebsiella pneumoniae. Recommend to do vancomycin with dialysi s for 6 weeks. 2.Klebsiella oxytoca and Escherichia coli. Complete a 5-day course of Levaquin for urinary tract in fection. Continue supportive care. Monitor signs for infection with WBC and fever patterns. We [employer] continue to monitor the patient closely. NF/MODL Voice ID: [id number] Report ID: [id number]
[2022-01-06] MEDS: NA CHLORIDE 0.9% 0 ML ONE ×2 (16:08)
[2022-01-06 16:57] VITALS: O2SAT 100
--- NOTE | 2022-01-06 17:13 | P.PN ---
Subjective Date of Service: 01/06/22 Chief Complaint: UTI;TESSIO CATHETER MALFUNCTION Subjective: No C/O voiced (Patient continued to have some hemodynamic lability, but no acute changes, remains in ICU for observation) Physical Examination - Vital Signs Temperature: 97.3 F Blood Pressure: 103/25 Pulse: 80 Respirations: 16 Pulse Ox (%): 100 - Physical Exam General: Alert, In no apparent distress, Cooperative Neck: Supple Respiratory: Normal air movement Musculoskeletal: No swelling - Studies Microbiology Data (last 24 hrs): 01/01/22 12:15 Blood - Blood Aerobic Blood Culture - Final No growth in 5 days. 01/01/22 12:15 Blood - Blood Anaerobic Blood Culture - Final No growth in 5 days. 01/01/22 12:40 Blood - Blood Aerobic Blood Culture - Final No growth in 5 days. 01/01/22 12:40 Blood - Blood Anaerobic Blood Culture - Final No growth in 5 days. Medications List Reviewed: Yes Assessment And Plan - Current Problems (Diagnosis) (1) ESRD (end stage renal disease) Current Visit: Yes Status: Acute Plan: - Patient remains in ICU for observation only as the LEFT arm midline catheter appeared non-functional during surgery, and as such concern was made that there may be infiltration in the LEFT arm. - continue medical mangement - I have spoken to Dr. Acuña my vascular surgeon colleague @ [facility] who agrees to see patient for catheter replacement as she has a more complicated case with respect to her access, her RIGHT arm fisula is not mature according to patient.
[2022-01-06] MEDS: HYDROCODONE/APAP 5/325 MG TAB PO PRN (19:47)
[2022-01-06] MEDS: NITROFURAN MACRO 100 MG CAP PO SCH (20:29)
--- NOTE | 2022-01-06 21:38 | RAD REPORT ---
EXAM DESCRIPTION: CT - Head Brain Wo Cont - 01/06/2022 9:30 pm CLINICAL HISTORY: Stroke rule out Headache, CVA symptomology COMPARISON: No comparisons TECHNIQUE: All CT scans are performed using dose optimization technique as appropriate and may inclu de automated exposure control or mA/KV adjustment according to patient size. FINDINGS: No intracranial hemorrhage, hydrocephalus or extra-axial fluid collection.Mild generalized brain atrophy is present with mild periventricular and deep white matter chronic microvascular ische beau changes.No areas of brain edema or evidence of midline shift. The paranasal sinuses and mastoids are clear. The calvarium is intact. Vertebral atherosclerosis. IMPRESSION: No acute intracranial abnormality.
--- NOTE | 2022-01-06 22:26 | CON ---
Date of Consultation: 01/04/2022 Brief History Of Present Illness: The patient is a 71-year-old female admitted to the hospital on with multiple issues including swelling to her right knee and potential hemodialysis cathete r access dysfunction. According to the patient, she has had this hemodialysis access for some time a nd has had a right upper extremity fistula placed, which has not matured approximately 6 to 8 weeks a go. She states that she was instructed not to use her fistula yet as it has not matured according to her report from her vascular specialist. She continued to get hemodialysis through a right internal jugular vein hemodialysis catheter. However, it has had dysfunction at times and I was asked to see the patient regarding dysfunction of the catheter. By report, I spoke to the dialysis nurse who sta kenneth that she successfully has been receiving dialysis through this even while being an inpatient [facility]; however, pressures are somewhat high and there is some concern as the catheter does requ haile cath flow thrombolytic agent to be placed through it for optimal flow and even under those circum stances, flow is suboptimal. As such, I was consulted to see if the patient could have an additional catheter placed. The patient did additionally have a pacemaker in the left subclavian position with the pacemaker in the left internal jugular vein and sits in this left subclavian pocket. She has no acute complaints currently. She, during her hospitalization, did have surgery with Dr. Ng for her septic joint and has been getting treated for medical issues. Past Medical History: Significant for end-stage renal disease, diabetes, rheumatoid arthritis, hyper tension, hyperlipidemia, CHF, coronary artery disease. Past Surgical History: Include left ankle fusion, hysterectomy, dialysis catheter placement and libertad vargas in the past, current dialysis catheter placement, septic knee drainage during this admission, hys terectomy. Allergies: NO KNOWN DRUG ALLERGIES. Home Medications: Include Eliquis, calcitriol, Lasix, hydralazine, isosorbide mononitrate, Mirapex, Ozempic, aspirin, budesonide, Coreg, Lexapro, NovoLog, Lantus, Protonix, trazodone, doxazosin, gentam icin topical, melatonin, Sevelamer/Renvela. Social History: She does have a positive tobacco history. She denies alcohol or recreational drug u se. Social History: She lives with her . Review of Systems: Ten-point review of systems other than HPI, she currently denies any issues. Physical Examination: General: She is awake, alert, and oriented. Psychiatric: She is appropriate, conversive. She has a flat affect. HEENT: She is normocephalic. Her sclerae anicteric. Mucous membranes are moist. Oropharynx clear. Neck: Supple. No JVD. Chest: Normal expansion and excursion. Cardiovascular: Regular rate at this time. Pulmonary: Clear to auscultation. Chest: She has a left internal jugular leaves, which were palpable leading to her pacemaker on the l eft subclavian position. The subclavian pocket is in close apposition to the subclavian bone and is relatively close to the skin surface, but not exposed. She has a right internal jugular hemodialysis catheter in place with no evidence of infection. Extremities: She has minimal swelling in all 4 extremities, 1+ edema. Skin: Otherwise warm and dry. Laboratory Data: White blood cell count of 11, hemoglobin is 9.8, hematocrit 30.2, platelet count wa s 383. Her neutrophils were 69%. Her coags were PTT 28.6. Her sodium was 132, potassium 3.9, chlor emy 95, carbon dioxide 25, BUN 54, creatinine 4.2, glucose is 351. COVID was negative. She had imaging of the knee performed, which were officially read as no fracture dislocation, moderat e osteoarthritis, medial compartment consisting of osteophytes and joint space narrowing, and subchon dral sclerosis with vascular calcifications present. She additionally had an extremity venous study on 01/01, officially read as acute thrombus in the right popliteal vein. She had a chest x-ray perfo rmed as well, officially read as no acute abnormality displayed. Assessment And Plan: 1.This is a 71-year-old woman who comes in with multiple problems including septic knee treated by Walter Ng. 2.End-stage renal disease with hemodialysis catheter in place and a non mature right arm fistula. 3.I have been consulted to consider replacement of the hemodialysis access. I have explained the ri sks, benefits, and alternatives, placement of this catheter including, but not limited to bleeding, i nfection, damage to surrounding tissues, pneumothorax, need for further operative procedures. The pa tient agrees to proceed as indicated. Continue medical management. Thank you for this interesting consult. TK/MODL Voice ID: [id number] Report ID: [id number]
[2022-01-07] MEDS: HYDROCODONE/APAP 5/325 MG TAB PO PRN (02:56)
--- NOTE | 2022-01-07 03:30 | OP ---
Date of Procedure: 01/06/2022 Surgeon: Tae Allen MD, Brief History Of Present Illness: The patient is a 71-year-old female who came in the hospital with multiple medical problems, sepsis due to a joint infection as well as multiple other medical problems including end-stage renal disease, maintained on hemodialysis. She had been having issues with her dialysis catheter over the past several dialysis sessions; however, the catheter was able to be used for complete dialysis, although the flows were somewhat low and she required Cathflo thrombolytic age nt to be placed through the catheter on several different occasions to help the functionality of the catheter for optimal flow. As such, I was consulted for consideration of replacement of her catheter . The patient additionally had a pacemaker with internal jugular leads on the left chest and the pac emaker was in high position in the infraclavicular position in close apposition to the clavicle itsel f, thus precluding a reasonable access based on the anatomy and position of this device. As such, I discussed placement of a subclavian catheter on the same side as she had the internal jugular cathete r for hemodialysis access on the right side. I explained the risks, benefits, and alternatives of th e above-stated plan including, but not limited to bleeding, infection, damage to surrounding tissues, injury to blood vessels, pneumothorax, and other unforeseen complications. The patient agreed to pr oceed as indicated. Preoperative Diagnosis: Hemodialysis catheter dysfunction. Postoperative Diagnosis: Hemodialysis catheter dysfunction. Procedures Performed: 1.Attempted placement of a right subclavian hemodialysis catheter with 5-Tamazight set. 2.Using microwire/micro-introducer set as well as fluoroscopy. Anesthesia: General endotracheal plus local. Estimated Blood Loss: Less than 2 cc. Specimen: None. Findings: Unable to advance the wire to the appropriate location. Complications: None immediate after surgery. Disposition: The patient was transferred to recovery room in good condition. Procedure In Detail: After informed consent was obtained as above, the patient was prepped and drape d in the usual sterile fashion. After adequate anesthesia was achieved, the patient was placed in st eep Trendelenburg position. I cannulated the right subclavian vein on the first attempt with the beau ro set with a 5-Tamazight sheath. At this point, I was unable to advance the microwire using fluoroscop ic guidance. The patient had some hemodynamic lability throughout the procedure and IV access was di fficult. As such, I opted to ultimately abandon the procedure as I could not advance the wire into t he superior vena cava using the microwire set in the superior vena cava using fluoroscopic guidance, and as such, I opted to discontinue the procedure as the patient still had a functional hemodialysis catheter in the right internal jugular vein. Therefore, I ended the procedure after removing the nee dle and wire and holding pressure in the subclavian position. The patient was brought in the head up position. Pressure was held in the subclavian position for approximately 3 minutes and the patient ultimately was transferred to the PACU. The patient tolerated the procedure without immediate compli cation and in good condition. All counts were correct at the end of the case. JV/ERI Voice ID: [id number] Report ID: [id number]
[2022-01-07 05:47] LABS: Absolute Lymphocytes (CBC) 2.1 K/uL (0.7-4.9); Lymphocytes % 23.5 % (15.3-44.8); MCV 81.3 fL (80-100); MPV 7.4 fL (7.6-11.3); RBC Red Blood Cell Count 3.57 M/uL (3.86-4.86)
[2022-01-07 05:55] LABS: AST/SGOT 12 U/L (15-37); Albumin 1.8 g/dL (3.4-5.0); Alkaline Phosphatase 77 U/L (45-117); BUN Blood Urea Nitrogen 32 mg/dL (7-18); Bicarbonate 27 mmol/L (21-32); Bilirubin Total 0.2 mg/dL (0.2-1.0); Glomerular Filtration Rate 12 ml/min (=/>90); Glucose Level 197 mg/dL (74-106); Potassium 3.6 mmol/L (3.5-5.1); Protein, Total 5.5 g/dL (6.4-8.2); Sodium Level 136 mmol/L (136-145)
[2022-01-07 05:56] LABS: ALT/SGPT < 10 U/L (12-78)
[2022-01-07 06:29] VITALS: BMI 25.9
[2022-01-07 07:10] LABS: White Blood Cell Scan OK (OK)
[2022-01-07 07:11] LABS: Anisocytosis 1+; Blood Morphology Comment NOTED (NOT SEEN); Platelet Estimate ADEQ
[2022-01-07] MEDS: INSULIN -REGULAR HUMAN 50 UNIT/0.5 ML ML SQ SCH ×2 (07:16→11:30)
[2022-01-07] MEDS: CEFAZOLIN 1 GM in NA CHLORIDE 0.9% 50 ML IVPB SCH ×2 (08:22→09:00)
[2022-01-07] MEDS: NITROFURAN MACRO 100 MG CAP PO SCH (08:22)
[2022-01-07] MEDS: SEVELAMER CARBONATE 800 MG TABLET PO SCH ×2 (08:22→12:00)
[2022-01-07] MEDS ORDERED: ALBUMIN HUMAN 25% 100 ML IV ONE (11:34)
[2022-01-07] MEDS: HEPARIN/D5W 25,000 UNIT/500 ML BAG IV SCH (13:05)
[2022-01-07 13:51] VITALS: TEMP 97.3
--- NOTE | 2022-01-07 15:10 | P.DS ---
Admission Date: 01/01/22 Discharge Date: 01/07/22 Disposition: TRANSFER TO [facility] Discharge Condition: FAIR Reason for Admission: UTI;TESSIO CATHETER MALFUNCTION Consultations: 1. Nephrology 2. General Surgery Procedures: - 01/02/2022 - Open Arthrotomy and Irrigation and Debridement of Right Knee - 01/05/2022 - Attempted Placement of Right Subclavian Tunnelled Hemodialysis Catheter Hospital Course: DIAGNOSES: # Sepsis secondary to Klebsiella Pneumoniae Right Knee Septic Arthritis and Klebsiella Oxytoca and E. Coli Urinary Tract Infection # End-Stage Renal Disease on [facility] iHD with Malfunctioning Tessio Catheter # Acute Right Popliteal Deep Venous Thrombosis # Prolonged QTc (544 msec) # Wide Pulse Pressure # Deconditioning # Chronic Compensated Congestive Heart Failure # Coronary Artery Disease # Hypertension # Hyperlipidemia HOSPITAL COURSE: Ms. Latricia Cadet is a pleasant 71-year-old female with a past medical history significant for end-stage [facility], chronic congestive heart failure, coronary artery disease, hypertension, and hyperlipidemia who was admitted to the [facility] on 01/01/2022 for a malfunctioning Tessio dialysis catheter. She was admitted to the Medicine service for further evaluation. We attempted to dialyze her after placing Cath-scot in the dialysis catheter, with success. In addition to this concern, she was found to have septic right knee arthritis. Synovial fluid analysis confirmed elevated WBC count. The synovial fluid culture would return positive for Klebsiella Pneumoniae, for which she was started on cefazolin. Infectious Diseases was consulted, and she was evaluated by Dr. Ti Montelongo. He recommended placement into [facility] for 6 weeks of IV antibiotics as well as wound care. In addition, she tested positive for a Klebsiella Oxytoca and E. Coli urinary tract infection. She was started on a 5- day course of nitrofurantoin as well as continuing the cefazolin as mentioned above to cover both of these organisms. On 01/05/2022, she was taken to the operating room for attempted placement of Tessio dialysis catheter with General Surgery. There were several complications during this procedure. Primarily, the general surgeon, Dr. Allen, was unable to place the dialysis catheter due to difficulty with the existing pacemaker wires. Additionally, her midline infiltrated during the procedure and propofol and etomidate was administered into her interstitial space. Due to concerns for cardiopulmonary arrest and hypotension following this incident, she was admitted to the intensive care unit for close monitoring. Per pharmacy, she was to be monitored for 24 to 48 hours prior to being downgraded. She was monitored for this timeframe and had no incidences of cardiopulmonary arrest. After discussion with Dr. Allen, it was planned that she be discharged to the LTAC as mentioned above and have an outpatient appointment to replace her di alysis catheter. However, her dialysis center stated that they will not take her back unless the catheter it is exchanged completely. For this reason, we felt that it would be most appropriate that a vascular surgeon placed this device. I have contacted the transfer center and she was accepted to be transferred to [facility]. I spoke with [place] [facility] Sur[facility] Dr. Aranza andrade's nurse (Sabrina), who has accepted to consult on her case once she arrives to [facility]. A doc to doc was completed with Dr. Balaji Bey (hospitalist), who has generously accepted her for transfer. On 01/07/2022, she was seen on morning rounds and deemed medically stable for transfer. She was given the opportunity to ask questions and reported no further questions. Furthermore, all questions were answered to the best of my ability. Today, I personally spent 35 minutes on her case, of which greater than 50% of the time was spent in patient education, counseling, and coordination of care as described above. - Physical Exam General: Alert, In no apparent distress, Oriented x3 HEENT: Atraumatic, PERRLA, Mucous membr. moist/pink, EOMI, Sclerae nonicteric Neck: Supple, JVD not distended Respiratory: Clear to auscultation bilaterally, Normal air movement Cardiovascular: No edema, Regular rate/rhythm, Normal S1 S2, No gallops, No rubs, No murmurs Gastrointestinal: Normal bowel sounds, Soft and benign, Non-distended, No tenderness, No rebound, No guarding Musculoskeletal: No clubbing, Other (right knee is covered in surgical dressing) Integumentary: No rashes Neurological: Normal speech, Cranial nerves 3-12 intact, Normal affect Vital Signs/Physical Exam: Temp Pulse Resp BP Pulse Ox 97.3 F 80 13 120/45 L 100 01/07/22 12:00 01/07/22 13:00 01/07/22 13:00 01/07/22 13:00 01/07/22 13:00 Laboratory Data at Discharge: WBC 9.10 K/uL (4.3-10.9) 01/07/22 04:50 Hgb 9.5 g/dL (12.0-15.0) L 01/07/22 04:50 Hct 29.0 % (36.0-45.0) L 01/07/22 04:50 Plt Count 290 K/uL (152-406) 01/07/22 04:50 PT 15.7 SECONDS (9.5-12.5) H 01/02/22 23:45 INR 1.42 01/02/22 23:45 APTT 106.7 SECONDS (24.3-36.9) H* 01/07/22 12:26 Sodium 136 mmol/L (136-145) 01/07/22 04:50 Potassium 3.6 mmol/L (3.5-5.1) 01/07/22 04:50 BUN 32 mg/dL (7-18) H 01/07/22 04:50 Creatinine 3.88 mg/dL (0.55-1.3) H 01/07/22 04:50 Glucose 197 mg/dL (74-106) H 01/07/22 04:50 Uric Acid 6.6 mg/dL (2.6-6.0) H 01/01/22 11:30 Phosphorus 6.0 mg/dL (2.5-4.9) H 01/03/22 07:02 Magnesium 2.1 mg/dL (1.8-2.4) 01/03/22 07:02 Total Bilirubin 0.2 mg/dL (0.2-1.0) 01/07/22 04:50 AST 12 U/L (15-37) L 01/07/22 04:50 ALT < 10 U/L (12-78) L 01/07/22 04:50 Alkaline Phosphatase 77 U/L (45-117) 01/07/22 04:50 Home Medications: Apixaban [Eliquis *] 2.5 mg PO BID 04/14/20 Calcitrol [Rocaltrol*] 0.25 mcg PO DAILY 04/14/20 Furosemide [Lasix] 80 mg PO BID 04/14/20 Hydralazine HCl [Apresoline] 25 mg PO Q8H 04/14/20 Isosorbide Mononitrate [Isosorbide Mononitrate ER] 60 mg PO DAILY 04/14/20 Pramipexole [Mirapex*] 1 mg PO BEDTIME 04/14/20 Semaglutide [Ozempic] 0.25 mg SQ SEECOM 04/14/20 Aspirin 81 mg PO DAILY 11/27/21 Budesonide [Budesonide EC] 3 mg PO TID 11/27/21 Carvedilol [Coreg] 25 mg PO BID 11/27/21 Escitalopram [Lexapro*] 10 mg PO BEDTIME 11/27/21 Insulin Aspart [Novolog Flexpen] 10 unit SQ TIDWM 11/27/21 Insulin Glargine,Hum.rec.anlog [Lantus] 40 unit SQ DAILY 11/27/21 Pantoprazole [Protonix Tab*] 40 mg PO DAILY 11/27/21 Trazodone HCl 100 mg PO BEDTIME 11/27/21 Doxazosin Mesylate 4 mg PO BID 01/02/22 Gentamycin 1 tammie TOP DAILY 01/02/22 Melatonin 10 mg PO BEDTIME 01/02/22 Sevelamer Carbonate [Renvela*] 2 tab PO TIDWM 01/02/22 Nitrofuran Macro [Macrobid*] 100 mg PO BID cap 01/07/22 Diet: Renal Activity: Fall precautions Followup: Unknown,U [Primary Care Provider] -
[2022-01-07 17:00] VITALS: BP 140/32
--- NOTE | 2022-01-08 08:35 | P.PN ---
Subjective Date of Service: 01/06/22 Chief Complaint: UTI;TESSIO CATHETER MALFUNCTION Pt doing well. No complaints. Waiting for cultures. Physical Examination - Vital Signs Temperature: 97.3 F Blood Pressure: 140/32 Pulse: 80 Respirations: 14 Pulse Ox (%): 100 - Studies Medications List Reviewed: Yes Assessment And Plan - Plan Problems Malfunctioning dialysis access ESRD Hypertension Hypervolemia Anemia UTI Septic athritis Plan Monitor off HD today, will maintain outpt HD schedule Started on phos binder envela Will start on epogen Continue antibiotic for uti adn septic athritis pending discharge, can work with HD unit on antibiotic administration Consider inpt rehab as needed, pt motivated to get stronger Renal diet 1l fluid restriction.
[2022-01-08 18:42] LABS: HBsAG Nonreactive (Nonreactive)
== END 2022-01-07 16:15 | disposition short-term general hospital (02) | DRG 698 ==
LOC: ER 10:38 → ERHOLD 16:00 → 2ND 16:34 → 3RD-ICU 01-05 16:51
PROVIDERS: ADMIT Hospitalist; ATTEND Internal Medicine
PROC: 0S9C3ZX Drainage of Right Knee Joint, Percutaneous Approach, Diagnostic (ICD-10-PCS; 2022-01-02)
PROC: 5A1D70Z Performance of Urinary Filtration, Intermittent, Less than 6 Hours Per Day (ICD-10-PCS; principal; 2022-01-02 08:00)
PROC: 05JY3ZZ Inspection of Upper Vein, Percutaneous Approach (ICD-10-PCS; 2022-01-06)
DX: T82.41XA Breakdown (mechanical) of vascular dialysis catheter, initial encounter (principal); A41.51 Sepsis due to Escherichia coli [E. coli]; N18.6 End stage renal disease; I13.2 Hypertensive heart and chronic kidney disease with heart failure and with stage 5 chronic kidney disease, or end stage renal disease; N39.0 Urinary tract infection, site not specified; M00.9 Pyogenic arthritis, unspecified; I82.431 Acute embolism and thrombosis of right popliteal vein; M25.461 Effusion, right knee; I50.9 Heart failure, unspecified; E11.22 Type 2 diabetes mellitus with diabetic chronic kidney disease; I25.10 Atherosclerotic heart disease of native coronary artery without angina pectoris; E87.6 Hypokalemia; E78.5 Hyperlipidemia, unspecified; E83.42 Hypomagnesemia; D64.9 Anemia, unspecified; D72.829 Elevated white blood cell count, unspecified; B96.1 Klebsiella pneumoniae [K. pneumoniae] as the cause of diseases classified elsewhere; Z79.01 Long term (current) use of anticoagulants; Z95.0 Presence of cardiac pacemaker; Z79.82 Long term (current) use of aspirin; Z79.4 Long term (current) use of insulin; Z79.899 Other long term (current) drug therapy; Z90.710 Acquired absence of both cervix and uterus; Z20.822 Contact with and (suspected) exposure to COVID-19
CPT/HCPCS: 36415; 70450; 71045; 76000; 80048; 80053; 80076; 80162; 81003; 82945; 82947; 83605; 83615; 83735; 83880; 84100; 84132; 84145; 84157; 84484; 84550; 84560; 85025; 85049; 85610; 85730; 86317; 87040; 87070; 87075; 87077; 87086; 87088; 87186; 87205; 87340; 87811; 89050; 89060; 90935; 92977; 93005; 93306; 93970; 96365; 96375; 97110; 97161; 97530; 99285; J0690; J1100; J1170; J1644; J1815; J2270; J2370; J2405; J2543; J2704; J2997; J3010; J3370; J3475; J3480; J7030; J7040; J7050

== ENCOUNTER 2022-05-02 21:00 | Inpatient (IN) | payer OTHER ==
--- OUTSIDE RECORDS SUMMARY | 2022-05-02 21:08 | XMS REPORT | Continuity of Care Document ---
:1950 Author Organization [facility] t Address [address] [place] [address] Care Team Providers Name Role Phone Pcp, Patient Does Not Have A Primary Care Physician +1-000-0 00-0000 Doctor Unassigned, [place] Attending Clinician Unavailable Luc Alvarez Attending Clinician Alannah Renner MD Attending Clinician ANNALEE TILLMAN Attending Clinician Unavailable Annalee Tillman MD Attending Clinician Mauro Mendoza MD Attending Clinician ALANNAH RENNER Attending Clinician Unavailable CORRINE MC Attending Clinician Unavailable ANNALEE VILLEGAS Attending Clinician Unavailable MD BRIAN KYLE Attending Clinician Unavailable Michaela Attending Clinician Unavailable MD CORRINE MC Attending Clinician Unavailable JORGE LUIS DC Attending Clinician Unavailable DAVID TRIPATHI Attending Clinician Unavailable SHAKEEL NARANJO Attending Clinician Unavailable SARAI SANDRA Attending Clinician Unavailable SHIRLEY PARKS Admitting Clinician Unavailable CORRINE MC Admitting Clinician Unavailable BRIAN KYLE Admitting Clinician Unavailable Michaela Admitting Clinician Unavailable MD CORRINE MC Admitting Clinician Unavailable SARAI SANDRA Admitting Clinician Unavailable Payers Payer Name Policy Type Policy Number Effective Date Expiration Date Ye weber USP [id number] 2021 (NON-CONTRACTED) 00:00:00 [facility] [id number] 2021 PLAN-CHRIST 00:00:00 [facility] - [id number] [facility] (O) Problems Condition Condition Condition Status Onset Resolution Last Treating Co mments Source Name Details Category Date Date Treatment Clinician Date Complicati Complicati Disease Active [facility]: Me dical with with 00 Center dialysis dialysis catheter catheter CKD CKD Disease Active [facility] (chronic (chronic 01-15 ity of kidney kidney 00:00: [place] disease) disease) 00 Medica l stage 4, stage 4, Branch GFR 15-29 GFR 15-29 ml/min ml/min Type 2 Type 2 Disease Active Overview: [facility] diabetes diabetes Formattin ity of mellitus mellitus g of this K[place] as with with note Medical diabetic diabetic might be Bran ch nephropath nephropath different y y from the original. follows with Dr. Ngo in [place] Neuropathy Neuropathy Disease Active Overview : [facility] ity of g of this [place] note Medical might be Branch different from the original. in feet and legs RLS RLS Disease Active Univers (restless (restless ity of legs legs [place] syndrome) syndrome) Medi [place] Branch Hyperchole Hyperchole Disease Active Overview : [facility] steremia steremia Formattin ity of g of this [place] note Medical might be Branch different from the original. follows with Dr. Tripathi HTN HTN Disease Active Overview: [facility] (hypertens (hypertens Formattin ity of ion) ion) g of this [place] note Medical might be Branch different from the original. follows with Dr. Tripathi Atrial Atrial Disease Active Overview: [facility] fibrillati fibrillati Formattin ity of on on g of this [place] note Medical might be Branch different from the original. follows with Dr. Tripathi ART on ART on Disease Active Overview: [facility] CPAP CPAP Formattin ity of g of this [place] note Medical might be Branch different from the original. follows with Dr. Cabrera Allergies, Adverse Reactions, Alerts Allergy Allergy Status Severity Reaction(s) Onset Inactive Treating Comm ents Source Name Type Date Date Clinician NO KNOWN Allergy Active [facility] NO KNOWN Drug Active Univers ALLERGIE Class ity of [facility] Social History Social Habit Start Date Stop Date Quantity Comments Source Tobacco use and 2022-01-08 2022-01-[address] [facility] exposure 00:00:00 [facility] Alcohol intake 2021-11-30 2021-11-30 0 /d [facility] 00:00:00 00:00:00 [facility] Sex Assigned At [address] [facility] 00:00:00 00:00[facility]00 [facility] Smoking Status Start Date Stop Date Source Never smoker [facility] Center Medications Ordered Filled Start Stop Current Ordering Indication Dosage Frequency Signature Comments Components Source Medication Medication Date Date Medication? Clinician (SIG) Name Name aspirin 81 Yes 81mg QD Take [address] MG chewable 8-30 by mouth Luke s tablet 16:49: daily. [facility] 03 Center apixaban Yes 2.5mg Q.5D Take 2.[address] (Eliquis) 8-30 mg by [facility] 2.5 mg Tab 16:49: mouth 2 Medi keira tablet 03 (two) Center times daily. pramipexole Yes 1mg QD Take [address] (MIRAPEX) 1 8-30 by mouth Luke s MG tablet 16:49: nightly. Medi [place] 03 Center semaglutide Yes .25mg Inject [facility] (Ozempic) 8-30 0.25 mg [facility] 0.25 mg or 16:49: subcutaneo M edical 0.5 mg(2 03 usly every Cente r mg/1.5 mL) 7 days PnIj Every Monday . pantoprazol Yes 40mg QD Take [address] 8-30 by mouth [facility] (PROTONIX) 16:49: daily. Medic al 40 MG 03 Center tablet traZODone Yes 100mg QD Take [address] (DESYREL) 8-30 mg by [facility] 100 MG 16:49: mouth Medical tablet 03 nightly. [place] hydrALAZINE 2021- No 25mg [id number] Take [address] (APRESOLINE 8-30 08-30 [id number] by mouth 3 [facility] ) 25 MG 11:55: 00:00 3D (three) Medica l tablet 27 :00 times Center daily. budesonide 2021- No 3mg QD Take [address] (ENTOCORT 01-18 by mouth [facility] EC) 3 mg 24 11:55: 00:00 every Medi keira hr capsule 27 :00 morning. Centnicolle r carvediloL 2021- No 25mg Take [address] (COREG) 25 01-1830 by mouth 2 [facility] kes MG tablet 11:55: 00:00 (two) Medica l 27 :00 times Center daily with breakfast and dinner. doxazosin 2021- No 4mg QD Take [address] (CARDURA) 4 01-18 by mouth Christopher es MG tablet 11:55: 00:00 nightly. Med ical 27 :00 Center isosorbide 2021- No 60mg QD Take [address] mononitrate 01-18 by mouth Christopher es (IMDUR) 60 11:55: 00:00 daily. Medi keira MG 24 hr 27 :00 Center tablet insulin 2021- No 40U QD Inject [address] glargine 01-18- Units [facility] (LANTUS, 11:55: 00:00 subcutaneo Me dical SEMGLEE) 27 :00 usly Center 100 unit/mL nightly injection Use as directed . furosemide 2021- No 80mg Q.5D Take [address] (LASIX) 80 01-18 by mouth 2 [facility] kes MG tablet 11:55: 00:00 (two) Medica l 27 :00 times Center daily. escitalopra 2021- No 10mg QD Take [address] m oxalate 01-18-30 by mouth [facility] (LEXAPRO) 11:55: 00:00 nightly. Med ical 10 MG 27 :00 Center tablet melatonin 2021- No 10mg QD Take [address] 10 mg TbDL 01-1830 by mouth Luke s 11:55: 00:00 nightly. Medical 27 :00 Center insulin 2021- No 10U Inject [address] aspart 01-18-30 Units [facility] U-100 11:55: 00:00 subcutaneo Medic al (NovoLOG) 27 :00 usly 3 Center 100 unit/mL (three) (3 mL) InPn times daily before meals. calcitrioL 2021- No .25ug QD Take 0.[address] (ROCALTROL) 01-18-30 mcg by [facility] 0.25 MCG 11:55: 00:00 mouth Medical capsule 27 :00 daily. Center HYDROcodone 2021- No 1{tbl} Take [address] -acetaminop 01-18 tablet by Camille pablo (NORCO 00:00: 23:59 mouth Medic al 5-325) 00 :00 every 6 Center 5-325 mg (six) per tablet hours as needed for Pain (Right knee septic joint) for up to 30 days. Max Daily Amount: 4 tablets cefTRIAXone 2021- No 2g QD Inject [address] (ROCEPHIN) 01-18 intravenou Camille neumann 2 g in 00:00: 23:59 sly daily Medic al sodium 00 :00 for 25 Center chloride days 0.9 % (NS) End-date: 100 mL 02/12/2022 (V2B) IVPB for septic right knee joint growing Klebsiella . HYDROcodone 2021- No 1{tbl} Take [address] -acetaminop 01-18 tablet by [place] pablo (NORCO 00:00: 00:00 mouth Medic al 5-325) 00 :00 every 6 Center 5-325 mg (six) per tablet hours as needed for Pain (Right knee septic joint). Max Daily Amount: 4 tablets allopurinol Yes [id number] 150mg Take 150 Univers (ZYLOPRIM) 1-04 mg by ity of 100 mg 15:21: mouth [place] tablet 32 daily. Medical Branch CALCIUM Yes .25mg Take 0.25 Univ ers CARBONATE/V 1-04 mg by ity of ITAMIN D3 15:21: mouth [place] (VITAMIN 32 daily. Medical D-3 ORAL) Branch allopurinol Yes [id number] 150mg Take 150 Univers (ZYLOPRIM) 1-04 mg by ity of 100 mg 15:21: mouth [place] tablet 32 daily. Medical Branch CALCIUM Yes .25mg Take 0.25 Univ ers CARBONATE/V 1-04 mg by ity of ITAMIN D3 15:21: mouth [place] (VITAMIN 32 daily. Medical D-3 ORAL) Branch allopurinol Yes [id number] 150mg Take 150 Univers (ZYLOPRIM) 1-04 mg by ity of 100 mg 15:21: mouth [place] tablet 32 daily. Medical Branch CALCIUM Yes .25mg Take 0.25 Univ ers CARBONATE/V 1-04 mg by ity of ITAMIN D3 15:21: mouth [place] (VITAMIN 32 daily. Medical D-3 ORAL) Branch allopurinol Yes [id number] 150mg Take 150 Univers (ZYLOPRIM) 1-04 mg by ity of 100 mg 15:21: mouth [place] tablet 32 daily. Medical Branch CALCIUM Yes .25mg Take 0.25 Univ ers CARBONATE/V 1-04 mg by ity of ITAMIN D3 15:21: mouth [place] (VITAMIN 32 daily. Medical D-3 ORAL) Branch allopurinol Yes [id number] 150mg Take 150 Univers (ZYLOPRIM) 1-04 mg by ity of 100 mg 15:21: mouth [place] tablet 32 daily. Medical Branch CALCIUM Yes .25mg Take 0.25 Univ ers CARBONATE/V 1-04 mg by ity of ITAMIN D3 15:21: mouth [place] (VITAMIN 32 daily. Medical D-3 ORAL) Branch allopurinol Yes [id number] 150mg Take 150 Univers (ZYLOPRIM) 1-04 mg by ity of 100 mg 15:21: mouth [place] tablet 32 daily. Medical Branch allopurinol Yes [id number] 150mg Take 150 Univers (ZYLOPRIM) 1-04 mg by ity of 100 mg 15:21: mouth [place] tablet 32 daily. Medical Branch CALCIUM Yes .25mg Take 0.25 Univ ers CARBONATE/V 1-04 mg by ity of ITAMIN D3 15:21: mouth [place] (VITAMIN 32 daily. Medical D-3 ORAL) Branch CALCIUM Yes .25mg Take 0.25 Univ ers CARBONATE/V 1-04 mg by ity of ITAMIN D3 15:21: mouth [place] (VITAMIN 32 daily. Medical D-3 ORAL) Branch allopurinol Yes [id number] 150mg Take 150 Univers (ZYLOPRIM) 1-04 mg by ity of 100 mg 15:21: mouth [place] tablet 32 daily. Medical Branch CALCIUM Yes .25mg Take 0.25 Univ ers CARBONATE/V 1-04 mg by ity of ITAMIN D3 15:21: mouth [place] (VITAMIN 32 daily. Medical D-3 ORAL) Branch allopurinol Yes [id number] 150mg Take 150 Univers (ZYLOPRIM) 1-04 mg by ity of 100 mg 15:21: mouth [place] tablet 32 daily. Medical Branch CALCIUM Yes .25mg Take 0.25 Univ ers CARBONATE/V 1-04 mg by ity of ITAMIN D3 15:21: mouth [place] (VITAMIN 32 daily. Medical D-3 ORAL) Branch allopurinol Yes [id number] 150mg Take 150 Univers (ZYLOPRIM) 1-04 mg by ity of 100 mg 15:21: mouth [place] tablet 32 daily. [facility] CALCIUM Yes .25mg Take 0.25 Univ ers CARBONATE/V 1-04 mg by ity of ITAMIN D3 15:21: mouth [place] (VITAMIN 32 daily. Medical D-3 ORAL) Branch furosemide Yes [id number] 40mg Take 40 mg Univers (LASIX) 20 1-04 by mouth ity o f mg tablet 15:19: daily. [address] furosemide Yes [id number] 40mg Take 40 mg Univers (LASIX) 20 1-04 by mouth ity o f mg tablet 15:19: daily. [address] furosemide Yes [id number] 40mg Take 40 mg Univers (LASIX) 20 1-04 by mouth ity o f mg tablet 15:19: daily. [address] furosemide Yes [id number] 40mg Take 40 mg Univers (LASIX) 20 1-04 by mouth ity o f mg tablet 15:19: daily. [address] furosemide Yes [id number] 40mg Take 40 mg Univers (LASIX) 20 1-04 by mouth ity o f mg tablet 15:19: daily. [address] furosemide Yes [id number] 40mg Take 40 mg Univers (LASIX) 20 1-04 by mouth ity o f mg tablet 15:19: daily. [address] furosemide Yes [id number] 40mg Take 40 mg Univers (LASIX) 20 1-04 by mouth ity o f mg tablet 15:19: daily. [address] furosemide Yes [id number] 40mg Take 40 mg Univers (LASIX) 20 1-04 by mouth ity o f mg tablet 15:19: daily. [address] furosemide Yes [id number] 40mg Take 40 mg Univers (LASIX) 20 1-04 by mouth ity o f mg tablet 15:19: daily. [address] furosemide Yes [id number] 40mg Take 40 mg Univers (LASIX) 20 1-04 by mouth ity o f mg tablet 15:19: daily. [address] Golimumab Yes [id number] inject U nivers (SIMPONI) 1-04 under the ity o f 50 mg/0.5 15:18: skin. [place] mL 20 Infusion Medical injection every 8 Branch weeks for rheumatoid arthritis. Golimumab Yes [id number] inject U nivers (SIMPONI) 1-04 under the ity o f 50 mg/0.5 15:18: skin. [place] mL 20 Infusion Medical injection every 8 Branch weeks for rheumatoid arthritis. Golimumab Yes [id number] inject U nivers (SIMPONI) 1-04 under the ity o f 50 mg/0.5 15:18: skin. [place] mL 20 Infusion Medical injection every 8 Branch weeks for rheumatoid arthritis. Golimumab Yes [id number] inject U nivers (SIMPONI) 1-04 under the ity o f 50 mg/0.5 15:18: skin. [place] mL 20 Infusion Medical injection every 8 Branch weeks for rheumatoid arthritis. Golimumab 2017 Yes [id number] inject U nivers (SIMPONI) 1-04 under the ity o f 50 mg/0.5 15:18: skin. [place] mL 20 Infusion Medical injection every 8 Branch weeks for rheumatoid arthritis. Golimumab Yes [id number] inject U nivers (SIMPONI) 1-04 under the ity o f 50 mg/0.5 15:18: skin. [place] mL 20 Infusion Medical injection every 8 Branch weeks for rheumatoid arthritis. Golimumab 2017 Yes [id number] inject U nivers (SIMPONI) 1-04 under the ity o f 50 mg/0.5 15:18: skin. [place] mL 20 Infusion Medical injection every 8 Branch weeks for rheumatoid arthritis. Golimumab Yes [id number] inject U nivers (SIMPONI) 1-04 under the ity o f 50 mg/0.5 15:18: skin. [place] mL 20 Infusion Medical injection every 8 Branch weeks for rheumatoid arthritis. Golimumab Yes [id number] inject U nivers (SIMPONI) 1-04 under the ity o f 50 mg/0.5 15:18: skin. [place] mL 20 Infusion Medical injection every 8 Branch weeks for rheumatoid arthritis. Golimumab Yes [id number] inject U nivers (SIMPONI) 1-04 under the ity o f 50 mg/0.5 15:18: skin. [place] mL 20 Infusion Medical injection every 8 Branch weeks for rheumatoid arthritis. carvedilol Yes 12.5mg Take 12.5 Univers (COREG) 1-04 mg by ity of 12.5 mg 14:33: mouth 2 [place] tablet 03 (two) Medical times Branch daily with meals. linagliptin Yes [id number] Take by Univers (TRADJENTA) 1-04 mouth. ity of 5 mg tablet 14:33: [address] Branch linagliptin Yes [id number] Take by Univers (TRADJENTA) 1-04 mouth. ity of 5 mg tablet 14:33: [place] [address] Medical Branch apixaban Yes 5mg Take 5 mg Univ ers (ELIQUIS) 04 by mouth 2 ity of 2.5 mg 14:33: (two) [place] tablet 03 times Medical daily. Branch hydralAZINE Yes 50mg Take 50 mg Univers (APRESOLINE 04 by mouth ity of ) 50 mg 14:33: every 6 [place] tablet 03 (six) Medical hours. Branch isosorbide Yes 60mg Take 60 mg U nivers mononitrate 04 by mouth. ity of (IMDUR) 60 14:33: [place] mg 24 hr 03 Medical tablet Branch carvedilol 2017-0 Yes 12.5mg Take 12.5 Univers (COREG) 1-04 mg by ity of 12.5 mg 14:33: mouth 2 [place] tablet 03 (two) Medical times Branch daily with meals. linagliptin 2017-0 Yes [id number] Take by Univers (TRADJENTA) 1-04 mouth. ity of 5 mg tablet 14:33: [place] 03 Medical Branch apixaban 2017-0 Yes 5mg Take 5 mg Univ ers (ELIQUIS) 1-04 by mouth 2 ity of 2.5 mg 14:33: (two) [place] tablet 03 times Medical daily. Branch hydralAZINE [id number] Yes 50mg Take 50 mg Univers (APRESOLINE 1-04 by mouth ity of ) 50 mg 14:33: every 6 [place] tablet 03 (six) Medical hours. Branch isosorbide 20170 Yes 60mg Take 60 mg U nivers mononitrate 1-04 by mouth. ity of (IMDUR) 60 14:33: [place] mg 24 hr 03 Medical tablet Branch carvedilol 2017-0 Yes 12.5mg Take 12.5 Univers (COREG) 1-04 mg by ity of 12.5 mg 14:33: mouth 2 [place] tablet 03 (two) Medical times Branch daily with meals. apixaban 20170 Yes 5mg Take 5 mg Univ ers (ELIQUIS) 1-04 by mouth 2 ity of 2.5 mg 14:33: (two) [place] tablet 03 times Medical daily. Branch hydralAZINE 20170 Yes 50mg Take 50 mg Univers (APRESOLINE 1-04 by mouth ity of ) 50 mg 14:33: every 6 [place] tablet 03 (six) Medical hours. Branch isosorbide 2017-0 Yes 60mg Take 60 mg U nivers mononitrate 1-04 by mouth. ity of (IMDUR) 60 14:33: [place] mg 24 hr 03 Medical tablet Branch carvedilol 2017-0 Yes 12.5mg Take 12.5 Univers (COREG) 1-04 mg by ity of 12.5 mg 14:33: mouth 2 [place] tablet 03 (two) Medical times Branch daily with meals. linagliptin 2017-0 Yes [id number] Take by Univers (TRADJENTA) 1-04 mouth. ity of 5 mg tablet 14:33: [place] 03 Medical Branch apixaban 2017-0 Yes 5mg Take 5 mg Univ ers (ELIQUIS) 1-04 by mouth 2 ity of 2.5 mg 14:33: (two) [place] tablet 03 times Medical daily. Branch hydralAZINE 20170 Yes 50mg Take 50 mg Univers (APRESOLINE 1-04 by mouth ity of ) 50 mg 14:33: every 6 [place] tablet 03 (six) Medical hours. Branch isosorbide 20170 Yes 60mg Take 60 mg U nivers mononitrate 1-04 by mouth. ity of (IMDUR) 60 14:33: [place] mg 24 hr 03 Medical tablet Branch carvedilol 20170 Yes 12.5mg Take 12.5 Univers (COREG) 1-04 mg by ity of 12.5 mg 14:33: mouth 2 [place] tablet 03 (two) Medical times [place] daily with meals. linagliptin 2017-0 Yes [id number] Take by Univers (TRADJENTA) 1-04 mouth. ity of 5 mg tablet 14:33: Medical Branch apixaban 2016-0 Yes 5mg Take 5 mg Univ ers (ELIQUIS) 1-04 by mouth 2 ity of 2.5 mg 14:33: (two) [place] tablet 03 times Medical daily. Branch hydralAZINE 0 Yes 50mg Take 50 mg Univers (APRESOLINE 1-04 by mouth ity of ) 50 mg 14:33: every 6 [place] tablet 03 (six) Medical hours. Branch isosorbide 20170 Yes 60mg Take 60 mg U nivers mononitrate 1-04 by mouth. ity of (IMDUR) 60 14:33: [place] mg 24 hr 03 Medical tablet Branch carvedilol 2017-0 Yes 12.5mg Take 12.5 Univers (COREG) 1-04 mg by ity of 12.5 mg 14:33: mouth 2 [place] tablet 03 (two) Medical times [place] daily with meals. linagliptin 2017-0 Yes [id number] Take by Univers (TRADJENTA) 1-04 mouth. ity of 5 mg tablet 14:33: Medical Branch apixaban [id number] Yes 5mg Take 5 mg Univ ers (ELIQUIS) 1-04 by mouth 2 ity of 2.5 mg 14:33: (two) [place] tablet 03 times Medical daily. Branch hydralAZINE 2017-0 Yes 50mg Take 50 mg Univers (APRESOLINE 1-04 by mouth ity of ) 50 mg 14:33: every 6 [place] tablet 03 (six) Medical hours. Branch isosorbide [id number] Yes 60mg Take 60 mg U nivers mononitrate 1-04 by mouth. ity of (IMDUR) 60 14:33: [place] mg 24 hr 03 Medical tablet Branch carvedilol 2017-0 Yes 12.5mg Take 12.5 Univers (COREG) 1-04 mg by ity of 12.5 mg 14:33: mouth 2 [place] tablet 03 (two) Medical times [place] daily with meals. linagliptin 2017-0 Yes [id number] Take by Univers (TRADJENTA) 1-04 mouth. ity of 5 mg tablet 14:33: Medical Branch apixaban 2017-0 Yes 5mg Take 5 mg Univ ers (ELIQUIS) 1-04 by mouth 2 ity of 2.5 mg 14:33: (two) [place] tablet 03 times Medical daily. Branch hydralAZINE 20170 Yes 50mg Take 50 mg Univers (APRESOLINE 1-04 by mouth ity of ) 50 mg 14:33: every 6 [place] tablet 03 (six) Medical hours. Branch isosorbide [id number] Yes 60mg Take 60 mg U nivers mononitrate 1-04 by mouth. ity of (IMDUR) 60 14:33: [place] mg 24 hr 03 Medical tablet Branch carvedilol 2017-0 Yes 12.5mg Take 12.5 Univers (COREG) 1-04 mg by ity of 12.5 mg 14:33: mouth 2 [place] tablet 03 (two) Medical times [place] daily with meals. linagliptin 2017-0 Yes [id number] Take by Univers (TRADJENTA) 1-04 mouth. ity of 5 mg tablet 14:33: [place] Medical Branch apixaban 2017-0 Yes 5mg Take 5 mg Univ ers (ELIQUIS) 1-04 by mouth 2 ity of 2.5 mg 14:33: (two) [place] tablet 03 times Medical daily. Branch hydralAZINE 2017-0 Yes 50mg Take 50 mg Univers (APRESOLINE 1-04 by mouth ity of ) 50 mg 14:33: every 6 [place] tablet 03 (six) Medical hours. Branch isosorbide 2017-0 Yes 60mg Take 60 mg U nivers mononitrate 1-04 by mouth. ity of (IMDUR) 60 14:33: [place] mg 24 hr 03 Medical tablet Branch carvedilol 2017-0 Yes 12.5mg Take 12.5 Univers (COREG) 1-04 mg by ity of 12.5 mg 14:33: mouth 2 [place] tablet 03 (two) Medical times [place] daily with meals. linagliptin 2017-0 Yes [id number] Take by Univers (TRADJENTA) 1-04 mouth. ity of 5 mg tablet 14:33: [place] 03 Medical Branch apixaban [id number] Yes 5mg Take 5 mg Univ ers (ELIQUIS) 1-04 by mouth 2 ity of 2.5 mg 14:33: (two) [place] tablet 03 times Medical daily. Branch hydralAZINE Yes 50mg Take 50 mg Univers (APRESOLINE 1-04 by mouth ity of ) 50 mg 14:33: every 6 [place] tablet 03 (six) Medical hours. Branch isosorbide 2017 Yes 60mg Take 60 mg U nivers mononitrate 1-04 by mouth. ity of (IMDUR) 60 14:33: [place] mg 24 hr 03 Medical tablet Branch carvedilol Yes 12.5mg Take 12.5 Univers (COREG) 1-04 mg by ity of 12.5 mg 14:33: mouth 2 [place] tablet 03 (two) Medical times [place] daily with meals. linagliptin 2017-0 Yes [id number] Take by Univers (TRADJENTA) 1-04 mouth. ity of 5 mg tablet 14:33: Medical Branch apixaban 2016-0 Yes 5mg Take 5 mg Univ ers (ELIQUIS) 1-04 by mouth 2 ity of 2.5 mg 14:33: (two) [place] tablet 03 times Medical daily. Branch hydralAZINE 2017-0 Yes 50mg Take 50 mg Univers (APRESOLINE 1-04 by mouth ity of ) 50 mg 14:33: every 6 [place] tablet 03 (six) Medical hours. Branch isosorbide [id number] Yes 60mg Take 60 mg U nivers mononitrate 1-04 by mouth. ity of (IMDUR) 60 14:33: [place] mg 24 hr 03 Medical tablet Branch pramipexole Yes [id number] 2mg Take 2 Univers (MIRAPEX) 1 1-04 tablets by it y of mg tablet 00:00: [place] 00 bed[place]. Medical Branch pramipexole Yes [id number] 2mg Take 2 Univers (MIRAPEX) 1 1-04 tablets by it y of mg tablet 00:00: [place] 00 bedtime. Medical Branch pramipexole Yes [id number] 2mg Take 2 Univers (MIRAPEX) 1 1-04 tablets by it y of mg tablet 00:00: [place] 00 bedtime. Medical Branch pramipexole Yes [id number] 2mg Take 2 Univers (MIRAPEX) 1 1-04 tablets by it y of mg tablet 00:00: [place] 00 bedtime. Medical Branch pramipexole Yes [id number] 2mg Take 2 Univers (MIRAPEX) 1 1-04 tablets by it y of mg tablet 00:00: [place] 00 bedtime. Medical Branch pramipexole Yes [id number] 2mg Take 2 Univers (MIRAPEX) 1 1-04 tablets by it y of mg tablet 00:00: [place] [facility] pramipexole Yes [id number] 2mg Take 2 Univers (MIRAPEX) 1 1-04 tablets by it y of mg tablet 00:00: [place] 00 bed[place]. Medical Branch pramipexole Yes [id number] 2mg Take 2 Univers (MIRAPEX) 1 1-04 tablets by it y of mg tablet 00:00: [place] 00 bedtime. Medical Branch pramipexole Yes [id number] 2mg Take 2 Univers (MIRAPEX) 1 1-04 tablets by it y of mg tablet 00:00: [place] [facility] pramipexole Yes [id number] 2mg Take 2 Univers (MIRAPEX) 1 1-04 tablets by it y of mg tablet 00:00: [place] 00 bedtime. Medical Branch gabapentin 2015- Yes 600mg Take 1 Univ ers (NEURONTIN) 1-18 tablet by ity of 600 mg 00:00: mouth 2 [place] tablet 00 (two) Medical times Branch daily. gabapentin 2015-05 Yes 600mg Take 1 Univ ers (NEURONTIN) 1-18 tablet by ity of 600 mg 00:00: mouth 2 [place] tablet 00 (two) Medical times Branch daily. gabapentin 2015-05 Yes 600mg Take 1 Univ ers (NEURONTIN) 1-18 tablet by ity of 600 mg 00:00: mouth 2 [place] tablet 00 (two) Medical times Branch daily. gabapentin 2015-05 Yes 600mg Take 1 Univ ers (NEURONTIN) 1-18 tablet by ity of 600 mg 00:00: mouth 2 [place] tablet 00 (two) Medical times Branch daily. gabapentin 2015-05 Yes 600mg Take 1 Univ ers (NEURONTIN) 1-18 tablet by ity of 600 mg 00:00: mouth 2 [place] tablet 00 (two) Medical times Branch daily. gabapentin 2015-05 Yes 600mg Take 1 Univ ers (NEURONTIN) 1-18 tablet by ity of 600 mg 00:00: mouth 2 [place] tablet 00 (two) Medical times Branch daily. gabapentin 2015-05 Yes 600mg Take 1 Univ ers (NEURONTIN) 1-18 tablet by ity of 600 mg 00:00: mouth 2 [place] tablet 00 (two) Medical times Branch daily. gabapentin 2015-05 Yes 600mg Take 1 Univ ers (NEURONTIN) 1-18 tablet by ity of 600 mg 00:00: mouth 2 [place] tablet 00 (two) Medical times Branch daily. gabapentin 2015-05 Yes 600mg Take 1 Univ ers (NEURONTIN) 1-18 tablet by ity of 600 mg 00:00: mouth 2 [place] tablet 00 (two) Medical times Branch daily. gabapentin 2015-05 Yes 600mg Take 1 Univ ers (NEURONTIN) 1-18 tablet by ity of 600 mg 00:00: mouth 2 [place] tablet 00 (two) Medical times Branch daily. glipiZIDE 2015-05 Yes [id number] 10mg Take 1 Un kevan XL 1-16 tablet by ity of (GLUCOTROL 00:00: mouth 2 [place] XL) 10 mg 00 (two) Medical 24 hr times Branch tablet daily. glipiZIDE 2015-05 Yes [id number] 10mg Take 1 Un [place] XL 1-16 tablet by ity of (GLUCOTROL 00:00: mouth 2 [place] XL) 10 mg 00 (two) Medical 24 hr times Branch tablet daily. glipiZIDE 2015-05 Yes [id number] 10mg Take 1 Un [place] XL 1-16 tablet by ity of ([place] 10 mg 00 (two) Medical 24 hr times Branch tablet daily. glipiZIDE 2015-05 Yes [id number] 10mg Take 1 [place] XL 1-16 tablet by ity of (GLUCOTROL [place] 10 mg 00 (two) Medical 24 hr times Branch tablet daily. glipiZIDE 2015-05 Yes [id number] 10mg Take 1 [place] 1-16 tablet by ity of (GLUCOT[place]OL [place] 10 mg 00 (two) Medical 24 hr times Branch tablet daily. glipiZIDE 2015-05 Yes [id number] 10mg Take 1 [place] 1-16 tablet by [facility]y of (GLUCOTROL [place] 10 mg 00 (two) Medical 24 hr times Branch tablet daily. glipiZIDE 2015-05 Yes [id number] 10mg Take 1 [place] 1-16 tablet by [facility]y of (GLUCOT[place]OL [place] 10 mg 00 (two) Medical 24 hr times Branch tablet daily. glipiZIDE 2015-05 Yes [id number] 10mg Take 1 [place] XL 1-16 tablet by ity of (GLUCOTROL 00:[place] 10 mg 00 (two) Medical 24 hr times Branch tablet daily. glipiZIDE 2015-05 Yes [id number] 10mg Take 1 [place] 1-16 tablet by [facility]y of (GLUCOTROL 00:[place] 10 mg 00 (two) Medical 24 hr times Branch tablet daily. glipiZIDE 2015-05 Yes [id number] 10mg Take 1 [place] XL 1-16 tablet by ity of (GLUCOTROL 00:00[place] 10 mg 00 (two) Medical 24 hr times Branch tablet daily. atorvastati 2015-05 Yes [id number] 10mg Take 1 Univers n (LIPITOR) 1-02 tablet by ity of 10 mg 00:00: mouth at [place] tablet 00 bedtime. Medical Branch atorvasta 2015-05 Yes [id number] 10mg Take 1 Univers n (LIPITOR) 1-02 tablet by ity of 10 mg 00:00: mouth at [place] tablet 00 bedtime. Medical Branch atorvasta 2015-05 Yes [id number] 10mg Take 1 Univers n (LIPITOR) 1-02 tablet by ity of 10 mg 00:00: mouth at [place] tablet 00 bedtime. [facility]05 Yes [id number] 10mg Take 1 Univers n (LIPITOR) 1-02 tablet by ity of 10 mg 00:00: mouth at [place] tablet 00 bedtime. [facility] Yes [id number] 10mg Take 1 Univers n (LIPITOR) 1-02 tablet by ity of 10 mg 00:00: mouth at [place] tablet 00 bedtime. [facility] 2015-05 Yes [id number] 10mg Take 1 Univers n (LIPITOR) 1-02 tablet by ity of 10 mg 00:00: mouth at [place] tablet 00 bedtime. [facility] Yes [id number] 10mg Take 1 Univers n (LIPITOR) 1-02 tablet by ity of 10 mg 00:00: mouth at [place] tablet 00 bedtime. [facility]05 Yes [id number] 10mg Take 1 Univers n (LIPITOR) 1-02 tablet by ity of 10 mg 00:00: mouth at [place] tablet 00 bedtime. Medical Branch atorvasta 2015-05 Yes [id number] 10mg Take 1 Univers n (LIPITOR) 1-02 tablet by ity of 10 mg 00:00: mouth at [place] tablet 00 bedtime. Medical Branch atorvasta 2015-05 Yes [id number] 10mg Take 1 Univers n (LIPITOR) 1-02 tablet by ity of 10 mg 00:00: mouth at [place] tablet 00 bedtime. Medical Branch Immunizations Ordered Filled Immunization Date Status Comments [facility] e Immunization Name Name Influenza Virus 2016-02-03 Completed Universit y of Vaccine 00:00:00 [facility] Pneumococcal 13 2016-02-03 Completed Universit y of Conjugate, PCV13 00:00:00 [facility] dicsd (Prevnar 13) Branch TDAP 2016-02-03 Completed University of 00:00:00 [facility] Influenza Virus 2016-02-03 Completed Universit y of Vaccine 00:00:00 [facility] Pneumococcal 13 2016-02-03 Completed Universit y of Conjugate, PCV13 00:00:00 [facility] dical (Prevnar 13) Branch AP 2016-02-03 Completed University of 00:00:00 [facility] Influenza Virus 2016-02-03 Completed Universit y of Vaccine 00:00:00 [facility] Pneumococcal 13 2016-02-03 Completed Universit y of Conjugate, PCV13 00:00:00 [facility] dical (Prevnar 13) Branch [facility] 2016-02-03 Completed University of 00[facility]00:00 [facility] Influenza Virus 2016-02-03 Completed Universit y of Vaccine 00:00:00 [facility] Pneumococcal 13 2016-02-03 Completed Universit y of Conjugate, PCV13 00:00:00 [facility] dical (Prevnar 13) Branch [facility] 2016-02-03 Completed University of 00:00:00 [facility] Influenza Virus 2016-02-03 Completed Universit y of Vaccine 00:00:00 [facility] Pneumococcal 13 2016-02-03 Completed Universit y of Conjugate, PCV13 00:00:00 [facility] dical (Prevnar 13) Branch [facility] 2016-02-03 Completed University of 00:00:00 [facility] Influenza Virus 2016-02-03 Completed Universit y of Vaccine 00:00:00 [facility] Pneumococcal 13 2016-02-03 Completed Universit y of Conjugate, PCV13 00:00:00 [facility] dical (Prevnar 13) Branch [facility] 2016-02-03 Completed University of 00:00:00 [facility] Influenza Virus 2016-02-03 Completed Universit y of Vaccine 00:00:00 [facility] Pneumococcal 13 2016-02-03 Completed Universit y of Conjugate, PCV13 00:00:00 [facility] dical (Prevnar 13) Branch [facility] 2016-02-03 Completed University of 00:00:00 [facility] Influenza Virus 2016-02-03 Completed Universit y of Vaccine 00:00:00 [facility] Pneumococcal 13 2016-02-03 Completed Universit y of Conjugate, PCV13 00:00:00 [facility] dical (Prevnar 13) Branch [facility] 2016-02-03 Completed University of 00:00:00 [facility] Influenza Virus 2016-02-03 Completed Universit y of Vaccine 00:00:00 [facility] Pneumococcal 13 2016-02-03 Completed Universit y of Conjugate, PCV13 00:00:00 [facility] dical (Prevnar 13) Branch TDAP 2016-02-03 Completed University of 00:00:00 [facility] Influenza Virus 2016-02-03 Completed Universit y of Vaccine 00:00:00 [facility] Pneumococcal 13 2016-02-03 Completed Universit y of Conjugate, PCV13 00:00:00 [facility] dical (Prevnar 13) Branch TDAP 2016-02-03 Completed University of 00:00:00 [facility] Influenza Virus 2015-01-05 Completed Universit y of Vaccine 00:00:00 [facility] Pneumococcal 13 2015-01-05 Completed Universit y of Conjugate, PCV13 00:00:00 [facility] dical (Prevnar 13) Branch Tetanus/Diptheria 2015-01-05 Completed Univers ity of 00:00:00 [facility] Influenza Virus 2015-01-05 Completed Universit y of Vaccine 00:00:00 [facility] Pneumococcal 13 2015-01-05 Completed Universit y of Conjugate, PCV13 00:00:00 [facility] dical (Prevnar 13) Branch Tetanus/Diptheria 2015-01-05 Completed Univers ity of 00:00:00 [facility] Influenza Virus 2015-01-05 Completed Universit y of Vaccine 00:00:00 [facility] Pneumococcal 13 2015-01-05 Completed Universit y of Conjugate, PCV13 00:00:00 [facility] dical (Prevnar 13) Branch Tetanus/Diptheria 2015-01-05 Completed Univers ity of 00:00:00 [facility] Influenza Virus 2015-01-05 Completed Universit y of Vaccine 00:00:00 [facility] Pneumococcal 13 2015-01-05 Completed Universit y of Conjugate, PCV13 00:00:00 [facility] dical (Prevnar 13) Branch Tetanus/Diptheria 2015-01-05 Completed Univers ity of 00:00:00 [facility] Influenza Virus 2015-01-05 Completed Universit y of Vaccine 00:00:00 [facility] Pneumococcal 13 2015-01-05 Completed Universit y of Conjugate, PCV13 00:00:00 [facility] dical (Prevnar 13) Branch Tetanus/Diptheria 2015-01-05 Completed Univers ity of 00:00:00 [place] [facility] Influenza Virus 2015-01-05 Completed Universit y of Vaccine 00:00:00 [facility] Pneumococcal 13 2015-01-05 Completed Universit y of Conjugate, PCV13 00:00:00 [facility] dical (Prevnar 13) Branch Tetanus/Diptheria 2015-01-05 Completed Univers ity of 00:00:00 [facility] Influenza Virus 2015-01-05 Completed Universit y of Vaccine 00:00:00 [facility] Pneumococcal 13 2015-01-05 Completed Universit y of Conjugate, PCV13 00:00:00 [facility] dical (Prevnar 13) Branch Tetanus/Diptheria 2015-01-05 Completed Univers ity of 00:00:00 [facility] Influenza Virus 2015-01-05 Completed Universit y of Vaccine 00:00:00 [facility] Pneumococcal 13 2015-01-05 Completed Universit y of Conjugate, PCV13 00:00:00 [facility] dical (Prevnar 13) Branch Tetanus/Diptheria 2015-01-05 Completed Univers ity of 00:00:00 [facility] Influenza Virus 2015-01-05 Completed Universit y of Vaccine 00:00:00 [facility] Pneumococcal 13 2015-01-05 Completed Universit y of Conjugate, PCV13 00:00:00 [facility] dical (Prevnar 13) Branch Tetanus/Diptheria 2015-01-05 Completed Univers ity of 00:00:00 [facility] Influenza Virus 2015-01-05 Completed Universit y of Vaccine 00:00:00 [facility] Pneumococcal 13 2015-01-05 Completed Universit y of Conjugate, PCV13 00:00:00 [facility] dical (Prevnar 13) Branch Tetanus/Diptheria 2015-01-05 Completed Univers ity of 00:00:00 [facility] Vital Signs Vital Name Observation Time Observation Value Comments Source HEIGHT 2022-01-14 10:00:00 162.6 cm WEIGHT 2022-01-14 10:00:00 68.04 kg HEIGHT 2022-01-14 10:00:00 162.6 cm WEIGHT 2022-01-14 10:00:00 68.04 kg HEIGHT 2022-01-14 10:00:00 162.6 cm WEIGHT 2022-01-14 10:00:00 68.04 kg Systolic blood 2022-01-18 12:00:00 117 mm[Hg] [facility] Diastolic blood 2022-01-18 12:00:00 51 mm[Hg] [facility] Heart rate 2022-01-18 12:00:00 80 /min [facility] Body temperature 2022-01-18 12:00:00 36.78 [facility] Respiratory rate 2022-01-18 12:00:00 18 /min [facility] Oxygen saturation in 2022-01-18 12:00:00 100 /min [facility] Arterial blood by Medical Ce nter Pulse oximetry Body height 2022-01-14 10:00:00 162.6 cm [facility] Body weight 2022-01-14 10:00:00 68.04 kg [facility] BMI 2022-01-14 10:00:00 25.75 kg/m2 [facility] Procedures Procedure Date / Time Performing Clinician Source Performed EXTERNAL PROVIDER 2022-04-01 06:01:00 Doctor Unassigned, No Univ [facility] RECORDS Name Medical Branch POCT-GLUCOSE METER 2022-01-18 12:10:00 Annalee Tillman [facility] HEMODIALYSIS INPATIENT 2022-01-18 07:52:23 Miles Quinones [facility] BASIC METABOLIC PANEL 2022-01-18 06:09:00 Reji, [facility] POCT-GLUCOSE METER 2022-01-17 19:46:00 Reji, [facility] POCT-GLUCOSE METER 2022-01-17 17:06:00 Reji, [facility] POCT-GLUCOSE METER 2022-01-17 12:13:00 Reji, [facility] POCT-GLUCOSE METER 2022-01-17 08:29:00 Reji, [facility] BASIC METABOLIC PANEL 2022-01-17 03:23:00 Reji, [facility] POCT-GLUCOSE METER 2022-01-16 20:16:00 Reji, [facility] POCT-GLUCOSE METER 2022-01-16 15:46:[address] [facility] POCT-GLUCOSE METER 2022-01-16 11:46:00 Reji, [facility] POCT-GLUCOSE METER 2022-01-16 07:47:00 Reji, [facility] POCT-GLUCOSE METER 2022-01-15 20:13:00 Reji, [facility] POCT-GLUCOSE METER 2022-01-15 17:54:00 Reji, [facility] POCT-GLUCOSE METER 2022-01-15 12:31:00 Reji, [facility] HEMODIALYSIS INPATIENT 2022-01-15 10:06:42 Rufina Owen [facility] POCT-GLUCOSE METER 2022-01-15 07:32:00 [facility] BASIC METABOLIC PANEL 2022-01-15 03:58:00 Reji [facility] POCT-GLUCOSE METER 2022-01-14 20:42[facility] 2022-01-14 15:38:00 [facility] SARS-COV2/RT-PCR ([facility] & 2022-01-14 14:57[facility]00 [facility] XR CHEST 1 VIEW PORTABLE 2022-01-14 14:38:00 Reji, [facility] / BEDSIDE Center POCT-GLUCOSE METER 2022-01-14 12:02:[address] [facility] IR CENTRAL VENOUS 2022-01-14 11:14:00 [facility] CATHETER PLACEMENT Center (JUGULAR OR FEMORAL) POCT-GLUCOSE METER 2022-01-14 08:24:00 [facility] CBC (HEMOGRAM ONLY) 2022-01-14 04:11:00 [facility] BASIC METABOLIC PANEL 2022-01-14 04:11:00 [facility] PO[facility]SE [facility]ER 2022-01-13 19:39:00 Reji, [facility] POCT-GLUCOSE METER 2022-01-13 16:37:00 Reji, [facility] POCT-GLUCOSE METER 2022-01-13 13:51:00 Reji, [facility] BLOOD GAS, ARTERIAL 2022-01-13 08:41:00 Reji, [facility] POCT-GLUCOSE METER 2022-01-13 08:25:00 Reji, [facility] CT BRAIN WITHOUT IV 2022-01-13 07:50:00 Reji, [facility] CBC W/PLT COUNT & AUTO 2022-01-13 07:29:00 Reji, [facility] DIFFERENTIAL [place] COMPREHENSIVE METABOLIC 2022-01-13 07:29:00 Reji, [facility] PANEL Center TROPONIN I 2022-01-13 07:29:00 Reji, [facility] TSH/FREE T4 IF INDICATED 2022-01-13 07:29:00 Reji, [facility] CBC W/PLT COUNT & AUTO 2022-01-13 07:29:00 Reji, [facility] POCT-GLUCOSE METER 2022-01-13 07:04:00 Reji, [facility] POCT-GLUCOSE METER 2022-01-13 06:21:00 Reji, [facility] POCT-GLUCOSE METER 2022-01-12 20:53:00 Reji, [facility] POCT-GLUCOSE METER 2022-01-12 19:20:00 Reji, [facility] POCT-GLUCOSE METER 2022-01-12 18:50:00 Reji, [facility] POCT-GLUCOSE METER 2022-01-12 17:58:00 Reji, [facility] IR TUNNELED CATHETER 2022-01-12 16:30:00 Rufina Owen [facility] POCT-GLUCOSE METER 2022-01-12 12:08:00 Mauro Mendoza [facility] POCT-GLUCOSE METER 2022-01-12 08:49:00 Annalee Tillman [facility] CBC W/PLT COUNT & AUTO 2022-01-12 05:39:00 Annalee Tillman [facility] (MANUAL DIFFERENTIAL) 2022-01-12 05:39:00 Annalee Tillman [facility] CBC W/PLT COUNT & AUTO 2022-01-12 05:39:00 Annalee Tillman [facility] BASIC METABOLIC PANEL 2022-01-12 05:39:00 Annalee Tillman [facility] MAGNESIUM 2022-01-12 05:39:00 Annalee Tillman [facility] PHOSPHORUS 2022-01-12 05:39:00 Annalee Tillman [facility] PROTHROMBIN TIME/INR 2022-01-12 05:39:00 Annalee Tillman [facility] APTT 2022-01-12 05:39:00 Annalee Tillman [facility] POCT-GLUCOSE METER 2022-01-11 19:49:00 Annalee Tillman [facility] POCT-GLUCOSE METER 2022-01-11 17:57:00 Annalee Tillman [facility] POCT-GLUCOSE METER 2022-01-11 12:37:00 Annalee Tillman [facility] HEMODIALYSIS INPATIENT 2022-01-11 12:29:37 Rufina Owen [facility], I [facility] POCT-GLUCOSE METER 2022-01-11 07:49:00 Annalee Tillman [facility] POCT-GLUCOSE METER 2022-01-10 21:16:00 Annalee Tillman [facility] POCT-GLUCOSE METER 2022-01-10 15:24:00 Annalee Tillman [facility] IR TUNNEL CATHETER 2022-01-10 11:23:00 JazzAranza vasquez [facility] POCT-GLUCOSE METER 2022-01-10 11:21:00 [facility] CBC W/PLT COUNT & AUTO 2022-01-10 04:13:00 [facility] CBC W/PLT COUNT & AUTO 2022-01-10 04:13:00 [facility] BASIC METABOLIC PANEL 2022-01-10 04:13:00 Annalee Tillman [facility] MAGNESIUM 2022-01-10 04:13:00 [facility] PHOSPHORUS 2022-01-10 04:13:00 Annalee Tillman [facility] APTT 2022-01-10 04:13:00 Joanna Owens [facility] POCT-GLUCOSE METER 2022-01-09 21:15:00 [facility] APTT 2022-01-09 19:08:00 [facility] POCT-GLUCOSE METER 2022-01-09 17:02:00 [facility] POCT-GLUCOSE METER 2022-01-09 11:22:00 [facility] APTT 2022-01-09 09:44:00 [facility] POCT-GLUCOSE METER 2022-01-09 07:19:00 [facility] POCT-GLUCOSE METER 2022-01-09 05:05:00 [facility] CBC W/PLT COUNT & AUTO 2022-01-09 04:57:00 [facility] CBC W/PLT COUNT & AUTO 2022-01-09 04:57:00 DeirdreAnnalee [facility] BASIC METABOLIC PANEL 2022-01-09 04:57:00 Annalee Tillman [facility] MAGNESIUM 2022-01-09 04:57:00 Annalee Tillman [facility] PHOSPHORUS 2022-01-09 04:57:00 Annalee Tillman [facility] APTT 2022-01-09 00:34:00 Annalee Tillman [facility] POCT-GLUCOSE METER 2022-01-08 16:49:00 Annalee Tillman [facility] APTT 2022-01-08 16:13:00 Annalee Tillman [facility] HEMODIALYSIS INPATIENT 2022-01-08 15:47:52 Lexie dora Sheehan I [facility] HEPATITIS B SURFACE 2022-01-08 15:40:00 Lexie dora Sheehan [facility] ANTIGEN [facility] HEPATITIS B SURFACE 2022-01-08 15:40:00 Lexie [facility] ANTIBODY [facility] POCT-GLUCOSE METER 2022-01-08 12:18:00 Annalee Tillman [facility] POCT-GLUCOSE METER 2022-01-08 07:59:00 Annalee Tillman [facility] CBC W/PLT COUNT & AUTO 2022-01-08 05:27:00 Annalee Tillman [facility] CBC W/PLT COUNT & AUTO 2022-01-08 05:27:00 Annalee Tillman [facility] BASIC METABOLIC PANEL 2022-01-08 05:27:00 Annalee Tillman [facility] MAGNESIUM 2022-01-08 05:27:00 Annalee Tillman [facility] PHOSPHORUS 2022-01-08 05:27:00 Annalee Tillman [facility] HEMOGLOBIN A1C 2022-01-08 05:27:00 Annalee Tillman [facility] APTT 2022-01-08 05:26:00 Joanna Owens [facility] POCT-GLUCOSE METER 2022-01-07 21:01:00 Annalee Tillman [facility] APTT 2022-01-07 21:00:00 Joanna Owens [facility] CARDIAC CATH REPORT - 2022-01-07 00:00:00 Provider, Default [facility] SCAN Scanning Center EKG-SCANNED 2022-01-07 00:00:00 Provider, Default [facility] Medical Scanning Center Plan of Care Planned Activity Planned Date Details Comments Source Future Scheduled 2026-02-02 DTAP/TDAP/TD VACCINES [facility] 00:00:00 (2 - Td or Tdap) [code Medic al Center = DTAP/TDAP/TD VACCINES (2 - Td or Tdap)] Future Scheduled 2023-01-[address] [facility] 00:00:00 Counseling [facility] Medical Cente r Screening (12+) [code = Tobacco Cessation Counseling and Screening (12+)] Future Scheduled 2022-01-20 INFLUENZA VACCINE (#1) [facility] 00:00:00 [code = INFLUENZA Medical Ce nter VACCINE (#1)] Future Scheduled 2021-05-[address] [facility] 00:00:00 (12+) [code = Medical Center DEPRESSION SCREENING (12+)] Future Scheduled 2021-05-22 FALLS RISK SCREENING [facility] 00:00:00 [code = FALLS RISK Medical C enter SCREENING] Future Scheduled 2021-03-10 PNEUMOCOCCAL 65+ YRS ([address] [facility] 00:00:00 - PPSV23 or PCV20) Medical C enter [code = PNEUMOCOCCAL 65+ YRS (2 - PPSV23 or PCV20)] Future Scheduled 1998 SHINGLES VACCINES ([address] [facility] 00:00:00 2) [code = SHINGLES Medical Center VACCINES (1 of 2)] Future Scheduled 1966 HEPATITIS C SCREENING [facility] 00:00:00 [code = HEPATITIS C Medical Center SCREENING] Future Scheduled 1949-04-16 COVID-19 VACCINE (#1) [facility] 00:00:00 [code = COVID-[address] VACCINE (#1)] Future Scheduled 1948 Screening for malignant [facility] 00:00:00 neoplasm of breast Medical C enter (procedure) [code = 577941238] Future Scheduled 1948 CT Colonography (combo) [facility] 00:00:00 [code = CT Colonography [facility] (combo)] Future Scheduled 1948 Screening for malignant [facility] 00:00:00 neoplasm of colon Medical Ce nter (procedure) [code = 427556533] Future Scheduled 1948 Screening for malignant [facility] 00:00:00 neoplasm of colon Medical Ce nter (procedure) [code = 398648691] Future Scheduled 1948 DXA SCAN [code = DXA [facility] 00:00:00 SCAN] [facility] Future Scheduled 1948 Screening for malignant [facility] 00:00:00 neoplasm of colon Medical Ce nter (procedure) [code = 902987761] Future Scheduled 1948 Screening for malignant [facility] 00:00:00 neoplasm of colon Medical Ce nter (procedure) [code = 761374776] Future Scheduled 1948 Sigmoidoscopy [code = [facility] Encounter Ad[facility] Attending Care Care Encounter Source Date/Time Date/Time Type Type Clinicians Facility Department ID 2022-01-05 [id number] 13[facility]:43 [facility] 2021-11-04 Outpatient [facility] [id number] [place] 14:[place]:[id number] [facility] 2021-08-11 Outpatient [facility] [id number] [facility] 09:26:[id number] [facility] 2022-04-01 2022-04-01 Orders Doctor MACKENZIE [id number] Univers 00:00:00 00:00:00 Only Unassigned, YARELI 350.1.13.10 ity of [place] [facility] 4.2.7.2.686 Kev as [phone] [place] [address] 2022-03-24 2022-03-24 Telephone TABITHA Barillas [id number] Univers 00:00:00 00:00:00 [facility] 350.1.13.10 it y of [place] 4.2.7.2.686 Kev as MARISA?BLEA [phone] Me garcía LOVE 198 [facility] OFFICE [facility] 2022-03-23 2022-03-[address] [facility] [id number] Univers 00:00:00 00:00:00 Luc S HEALTH 350.1.13.10 it y of [place] 4.2.7.2.686 Kev as MARISA?BLEA [phone] Me garcía LOVE 198 [facility] OFFICE [facility] 2022-03-18 2022-03-[address] [facility] [id number] Univers 00:00:00 00:00:00 Alannah L HEALTH 350.1.13.10 it y of [place] 4.2.7.2.686 Kev as MARISA?BLEA [phone] Me garcía LOVE 198 [facility] OFFICE [facility] 2022-03-16 2022-03-[address] [facility] 1.2.840.114 [id number] Univers 00:00:00 00:00:00 [facility] SPECIALTY 350.1.13.10 ity of [place].2.[place] [phone] [place] garcía [place] [address] [place] [address] 2022-01-07 2022-01-18 Inpatient UR LAYNE [facility] Surgery [id number] [facility] 17:48:00 16:48:00 ANNALEE 2022-01-07 2022-01-18 [facility] Annalee Tillman [facility] [id number] [facility] 17:48:00 16:48:[address] [facility] 2022-01-07 2022-01-07 Travel [facility] [id number] [facility] 00:00:00 00:00:00 [facility] 2022-01-02 2022-01-[address] [facility] NUT [id number] Univers 00:00:00 00:00:00 ALANNAH durand [facility] 2021-09-06 2021-09-16 [facility] [id number] [place] 00:00:00 00:00:00 CORRINE [facility]reon[address] [facility] 2021-07-31 2021-08-13 Inpatient ALLNHOFER, [facility] [id number] [place] 00:00:00 00:00:00 ANNALEE [address] 2021-06-10 2021-06-10 Outpatient [facility] [id number] [place] 00:00:00 00:00:[address] 2021-06-09 2021-06-09 Outpatient Daniel_T VFP VFP [id number] 02-08 [facility] 11:40:00 11:40:00 [id number] Family Practic e 2021-06-01 2021-06-04 Outpatient AL-LAHIQ, [facility] [id number] [place] 00:00:00 00:00:00 MAHA [address] 2020-08-05 2020-08-05 Outpatient PHUC-MICHAEL [facility] [id number] [place] 00:00:00 00:00:00 , JORGE LUIS [address] 2020-07-09 2020-07-09 Outpatient [facility] [id number] [place] 00:00:00 00:00:[address] 2020-06-18 2020-06-18 Outpatient [facility] [id number] [place] 00:00:00 00:00:00 692 Method i 2020-04-05 2020-04-06 Outpatient AL-LAHIQ, [place] [id number] [place] 00:00:00 00:00:00 MAHA [address] 2020-03-22 2020-03-25 Inpatient AL-LAHIQ, [facility]4 [id number] [place] 00:00:00 00:00:00 MAHA [address] 2020-02-27 2020-02-27 Outpatient TRIPATHI, [facility] [id number] [place] 00:00:00 00:00:00 DAVID 385 Method i 2020-02-17 2020-02-18 Outpatient AL-LAHIQ, [facility]4 [id number] [place] 00:00:00 00:00:00 MAHA [address] 2020-01-17 2020-01-18 Emergency JOSE A, [place] [address] [id number] 46 [place] 00:00:00 00:00:00 SHAKEEL [address] 2019-10-23 2019-10-26 Inpatient AL-LAHIQ, [facility] 064 [id number] [place] 00:00:00 00:00:00 MAHA [address] 2019-08-05 2019-08-05 Outpatient VANDA [facility] [id number] [place] 00:00:00 00:00:00 , JORGE LUIS [address] 2019-07-10 2019-07-12 Inpatient ALEXANDRO [facility] [id number] [place] 00:00:00 00:00:00 MAHA [address] 2019-03-27 2019-03-30 Outpatient BOAZ, [facility] 2100 [id number] [place] 00:00:00 00:00:00 SARAI [address] Results Test Description Test Time Test Comments Results Result Comments Source POC-Glucose meter 2022-01-18 12:22:13 Test Item Value Reference Range Interpretation Comme nts POC-Glucose Meter (test code = 102 mg/dL 70-110 : TESTED AT [facility] [address]) [facility] [id number]: Social Sciences Chair/Techni faviola ID = [id number] for Myriam Lopez a Lab Interpretation (test code = Normal 95011-0) [facility] [id number] 12:22:13 Test Item Value Reference Range Interpretation Comments POC-GLUCOSE METER 102 mg/dL 70-110 : TESTED A T [facility] [address] (BEAKER) (test code [address] [facility], = 1538) [facility] 77 478: Social Sciences Chair/Techni faviola ID = [id number] for Zuri Maharaj BASIC METABOLIC [id number] 06:40:34 Test Item Value Reference Range Interpretation Comments SODIUM (BEAKER) 140 meq/L 135-148 (test code = 381) POTASSIUM 3.3 meq/L 3.6-5.5 L (BEAKER) (test code = 379) CHLORIDE (BEAKER) 105 meq/L 98-106 (test code = 382) CO2 (BEAKER) 22 meq/L 20-29 (test code = 355) BLOOD UREA 18 mg/dL 10-26 NITROGEN (BEAKER) (test code = 354) CREATININE 4.43 mg/dL 0.50-1.20 H (BEAKER) (test code = 358) GLUCOSE RANDOM 158 mg/dL 70-110 H ([facility] (test code = 652) CALCIUM ([facility] 8.8 mg/dL 8.5-10.5 (test code = 697) EGFR ([facility] 10 Interpretatio n of eGFR (test code = mL/min/1.73 values Stage De scription 1092) sq m Result G1 Dulce l or high >=90 G2 Mildly decreased 60-89 G3a Mildl y to moderately 45-5 9 G3b Moderately to s everely 30-44 G4 Severl y decreased 15-29 G5 Kidney failure <15Reported eGF R is based on the CKD-EPI 202 equation that d oes not use a race coefficientEsti mated GFR is not as accur ate as Creatinine Nilda roni in predicting glom erular filtration rate . Estimated GFR is not appl icable for dialysis patien ts Social Sciences Chair ID - [id number] ID - [id number] ID - [id number] ID - [id number] ID - [id number] ID - [id number] ID - [id number] ID - [id number] ID - [id number] ID - [id number] ID - [id number] ID - [id number] ID - [id number]-KHQVASA [id number] 19:58:07 Test Item Value Reference Range Interpretation Comments POC-GLUCOSE METER 126 mg/dL 70-110 H : TESTED A T [facility] 1317 ([facility] (test code [facility], = 1538) [facility] 77 478: Social Sciences Chair/Techni faviola ID = [id number] for Ina Agrawal POCT-GLUCOSE [id number] 17:18:36 Test Item Value Reference Range Interpretation Comments POC-GLUCOSE METER 128 mg/dL 70-110 H : Notified RN/MD: TESTED (TG) (test code AT [facility] [address] = 1538) [facility], [facility] [address]: Social Sciences Chair/Techni faviola ID = [id number] for Maninder Matt figueroafrancoisovidio POCT-GLUCOSE [id number] 12:27:16 Test Item Value Reference Range Interpretation Comments POC-GLUCOSE METER 141 mg/dL 70-110 H : TESTED A T [facility] [address] (BEAKER) (test code [address], = 1538) [facility] 77 478: Social Sciences Chair/Techni faviola ID = [id number] for Sunita Alaniz POCT-GLUCOSE [id number] 08:42:44 Test Item Value Reference Range Interpretation Comments POC-GLUCOSE METER 152 mg/dL 70-110 H : Notified RN/MD: TESTED (BEAKER) (test code AT [facility] [address] = 1538) PKWY, [facility] [address]: Social Sciences Chair/Techni faviola ID = [id number] for Sunita Alaniz BASIC METABOLIC [id number] 05:53:56 Test Item Value Reference Range Interpretation Comments SODIUM (BEAKER) 138 meq/L 135-148 (test code = 381) POTASSIUM 3.3 meq/L 3.6-5.5 L (BEAKER) (test code = 379) CHLORIDE (BEAKER) 103 meq/L 98-106 (test code = 382) CO2 (BEAKER) 24 meq/L 20-29 (test code = 355) BLOOD UREA 14 mg/dL 10-26 NITROGEN (BEAKER) (test code = 354) CREATININE 4.01 mg/dL 0.50-1.20 H (BEAKER) (test code = 358) GLUCOSE RANDOM 137 mg/dL 70-110 H (BEAKER) (test code = 652) CALCIUM (BEAKER) 9.0 mg/dL 8.5-10.5 (test code = 697) EGFR (BEAKER) 11 Interpretatio n of eGFR (test code = mL/min/1.73 values Stage De scription 1092) sq m Result G1 Dulce l or high >=90 G2 Mildly decreased 60-89 G3a Mildl y to moderately 45-5 9 G3b Moderately to s everely 30-44 G4 Severl y decreased 15-29 G5 Kidne y failure <15Reported eGF R is based on the CKD-EPI 2021 equation that d oes not use a race coefficientEsti mated GFR is not as accur ate as Creatinine Nilda tamayo in predicting glom erular filtration rate . Estimated GFR is not appl icable for dialysis patien ts Social Sciences Chair ID - [id number] ID - [id number] ID - [id number] ID - [id number] ID - [id number] ID - [id number] ID - [id number] ID - [id number] ID - [id number] ID - [id number] ID - [id number] ID - [id number] ID - [id number]-UQJBLUM [id number] 20:28:58 Test Item Value Reference Range Interpretation Comments POC-GLUCOSE METER 184 mg/dL 70-110 H : TESTED A T [facility] [address] (BEAKER) (test code [address], = 1538) [place] [id number]: Social Sciences Chair/Techni faviola ID = [id number] for Ina Agrawal POCT-GLUCOSE [id number] 15:57:54 Test Item Value Reference Range Interpretation Comments POC-GLUCOSE METER 187 mg/dL 70-110 H : TESTED A T [facility] [address] (BEAKER) (test code [address], = 1538) [place] [id number]: Social Sciences Chair/Techni faviola ID = [id number] for Ej vergara, Aileen POCT-GLUCOSE [id number] 11:57:54 Test Item Value Reference Range Interpretation Comments POC-GLUCOSE METER 163 mg/dL 70-110 H : TESTED A T [facility] [address] (BEAKER) (test code [address], = 1538) [place] 283718: Social Sciences Chair/Techni faviola ID = [id number] for Ej vergara, Aileen POCT-GLUCOSE [id number] 07:59:00 Test Item Value Reference Range Interpretation Comments POC-GLUCOSE METER 129 mg/dL 70-110 H : TESTED A T [facility] [address] (BEAKER) (test code [address], = 1538) [place] 283718: Social Sciences Chair/Techni faviola ID = [id number] for Ej vergara, Aileen POCT-GLUCOSE [id number] 20:24:24 Test Item Value Reference Range Interpretation Comments POC-GLUCOSE METER 185 mg/dL 70-110 H : TESTED A T [facility] [address] (BEAKER) (test code [address], = 1538) [place] [address] 478: Social Sciences Chair/Techni faviola ID = [id number] for Agustin Patel POCT-GLUCOSE [id number] 18:05:34 Test Item Value Reference Range Interpretation Comments POC-GLUCOSE METER 126 mg/dL 70-110 H : TESTED A T [facility] [address] (BEAKER) (test code [address], = 1538) [place] [id number]: Social Sciences Chair/Techni faviola ID = [id number] for Consuelo Leija POCT-GLUCOSE [id number] 12:43:19 Test Item Value Reference Range Interpretation Comments POC-GLUCOSE METER 154 mg/dL 70-110 H : TESTED A T [facility] [address] (BEAKER) (test code [address], = 1538) [place] [id number]: Social Sciences Chair/Techni faviola ID = [id number] for Consuelo Leija POCT-GLUCOSE [id number] 07:44:17 Test Item Value Reference Range Interpretation Comments POC-GLUCOSE METER 142 mg/dL 70-110 H : TESTED A T [facility] [address] (BEAKER) (test code [address], = 1538) [place] [id number]: Social Sciences Chair/Techni faviola ID = [id number] for Consuelo Leija BASIC METABOLIC [id number] 05:55:22 Test Item Value Reference Range Interpretation Comments SODIUM (BEAKER) 139 meq/L 135-148 (test code = 381) POTASSIUM 3.7 meq/L 3.6-5.5 (BEAKER) (test code = 379) CHLORIDE (BEAKER) 105 meq/L 98-106 (test code = 382) CO2 (BEAKER) 24 meq/L 20-29 (test code = 355) BLOOD UREA 15 mg/dL 10-26 NITROGEN (BEAKER) (test code = 354) CREATININE 4.12 mg/dL 0.50-1.20 H (BEAKER) (test code = 358) GLUCOSE RANDOM 147 mg/dL 70-110 H (BEAKER) (test code = 652) CALCIUM (BEAKER) 9.3 mg/dL 8.5-10.5 (test code = 697) EGFR (BEAKER) 11 Interpretatio n of eGFR (test code = mL/min/1.73 values Stage De scription 1092) sq m Result G1 Dulce l or high >=90 G2 Mildly decreased 60-89 G3a Mildl y to moderately 45-5 9 G3b Moderately to s everely 30-44 G4 Severl y decreased 15-29 G5 Kidney failure <15Reported eGF R is based on the CKD-EPI 202 equation that d oes not use a race coefficientEsti mated GFR is not as accur ate as Creatinine Nilda roni in predicting glom erular filtration rate . Estimated GFR is not appl icable for dialysis patien ts Social Sciences Chair ID - LITOOperator ID - LITOOperator ID - LITOOperator ID - LITOOperator ID - LITOOperator ID - LITOOperator ID - LITOOperator ID - LITOOperator ID - LITOOperator ID - LITOOperator ID - LITOOperator ID - LITOOperator ID - MARTÍN POCT-GLUCOSE [id number] 20:53:58 Test Item Value Reference Range Interpretation Comments POC-GLUCOSE METER 194 mg/dL 70-110 H : TESTED A T [facility] (TNOEY) (test code [address], = 1538) [place] [address] 478: Social Sciences Chair/Techni faviola ID = [id number] for Aileen Loja POCT-GLUCOSE [id number] 15:49:19 Test Item Value Reference Range Interpretation Comments POC-GLUCOSE METER 171 mg/dL 70-110 H : TESTED A T [facility] [address] (BEAKER) (test code [address], = 1538) [place] [address] 478: Social Sciences Chair/Techni faviola ID = [id number] for Aileen Loja SARS-CoV2/RT-PCR (Asymptomatic ONLY)2022-01-14 15:42:35 Test Item Value Reference Interpretation Comments Range SARS-COV2/RT-PCR Negative Negative The SARS-Co V-2 (test code = target nucleic 64762-4) acids are not detected in thi s specimen. Negat eveline results do not preclude SARS-C oV-2 infection and should not be u sed as the sole bas is for patient management decisions. Nega tive results must be combined with clinical observations, patient history , and epidemiolog ical information. A false negative result may occu r if a specimen is improperly collected, transported or handled. This S ARS CoV-2 test is a rapid, real-quinn e RT-PCR test intended for th e qualitative detection of nucleic acid fr om SARS-CoV-2 in a nasopharyngeal swab specimen collec kenneth from individual s suspected of COVID-19 by the ir healthcare provider. VALERIANO (test code = This test has been VALERIANO) authorized by FDA under an EUA for use by authorized laboratories. This test is only authorized for the duration of the declaration that circumstances exist justifying the authorization of emergency use of in vitro diagnostic tests for detection and/or diagnosis of COVID-19 under Section 564(b)(1) of the Federal Food, Drug and Cosmetic Act, 21 U.S.C. 360bbb-3(b)(1), unless the authorization is terminated or revoked sooner. Fact Sheet for Healthcare Providers: https://www.[employer]/Documents/Xp ert%20Xpress%20SAR S%20CoV-2/Fact%20S heets/302-3802%20S ARS-COV-2%20HEALTH CARE%20PROVIDERS%2 0FACT%20SHEET.pdf Fact Sheet for Healthcare Patients: https://www.[employer]/Documents/Xp ert%20Xpress%20SAR S%20CoV-2/Fact%20S heets/302-3801%20S ARS-COV-2%20PATIEN T%20FACT%20SHEET.p df Lab Interpretation Normal (test code = 88349-0) [facility] ([facility])2022-01-14 15:42:35 Test Item Value Reference Range Interpretation Comments SARS-COV2/RT-PCR Negative Negative The SARS-Co V-2 target (test code = nucleic acids a re not 9367791) detected in thi s specimen. Negative result s do not preclude SARS-C oV-2 infection and s hould not be used as the dash e basis for patient managem ent decisions. Nega tive results must be combine d with clinical observ ations, patient history , and epidemiological information. A false negativ e result may occur if a spec imen is improperly melvin ected, transported or handled. This SARS CoV-2 test is a rapid, real-time RT-PC R test intended for th e qualitative detection of nu cleic acid from SARS-CoV-2 in a nasopharyngeal swab specimen collected from individuals suspected of CO VID-19 by their healthcar e provider. This test has been authorized by FDA under an EUA for use by authorized laboratories. This test is only authorized for the duration of the declaration that circumstances exist justifying the authorization of emergency use of in vitro diagnostic tests for detection and/or diagnosis of COVID-19 under Section 564(b)(1) of the Federal Food, Drug and Cosmetic Act, 21 U.S.C. 360bbb-3(b)(1), unless the authorization is terminated or revoked sooner. Fact Sheet for Healthcare Providers: https://www.[employer] m/Documents/Xpert%20Xpress%20SARS%20CoV-2/Fact%20Sheets/302-3802%13JHAW-WUV-2%20 HEALTHCARE%20PROVIDERS%20FACT%20SHEET.pdf Fact Sheet for Healthcare Patients: https://www.[employer]/Documents/Xpert%20Xp ress%20SARS%20CoV-2/Fact%20Sheets/302-3801%42YVHV-TRW-8%20PATIENT%20FACT%20SHEET .pdfRAD, CHEST, 1 VIEW, NON [id number] 15:02:00Reason for exam:- >SOBShould this be performed at the bedside?->Yes [facility] : 1950 Sex: FFINAL REPORT Chest AP portable semierect History provided: Shortness of breath Heart size magnified by projection. Multilead left subclavian pacemaker. Tunneled dialysis catheter from right jugular approach with catheter tip at the mid right atrium in excellent position. Left jugular central venous catheter with tip at the cavoatrial junction. Lungs are clear and vascularity normal. S igned: Carl Linke[place] Verified Date/Time: 01/14/2022 15:02:16 Reading Location: [facility] Radiology Reading Room POCT-GLUCOSE [id number] 12:14:41 Test Item Value Reference Range Interpretation Comments POC-GLUCOSE METER 134 mg/dL 70-110 H : TESTED A T [facility] 1317 (BEAKER) (test code [address], = 1538) [facility] 77 478: Social Sciences Chair/Techni faviola ID = [id number] for Aileen Loja, CENTRAL VENOUS CATH PLCMO (JUG/FEM) > 5 Y.O. WITH [id number] 11:25:00Reason for exam:->Non tunneled central line placement [facility] : 1950 Sex: FFINAL REPORT INSERTION OF LEFT IJ CENTRAL VENOUS CATHETER, UNDER FLUOROSCOPY History provided: Central line needed for IV access. PROCEDURE: Informed consent was obtained. Patient's medication list was reviewed. Timeout procedure was performed. All elements of strict sterile barrier were employed, including cap, mask, sterile gloves, and sterile drape. Skin was prepped with ChloraPrep. 1% Xylocaine anesthesia utilized. Ultrasound evaluation of potential access sites was performed. Sterile ultrasound techniques were employed, including sterile gel and sterile probe cover. After successfully identifying a patent left internal jugular vein , real-time ultrasound guidance was used to p uncture the vessel. A permanent recording was created for the patient's record. Over a guidewire, a 20 cm length triple-lumen catheter was inserted with tip at superior right atrium. Position documented with fluoroscopic spot film. The catheter was flushed and secured in place with 2-0 silk sutures. Sterile dressing applied. Catheter is ready for immediate use. Fluoroscopy time: 0.4 minutes Radiationdose (Ka,r): 2 mGy Signed: Carl Link MDReport Verified Date/Time: 01/14/2022 11:25:42 Reading Location: [facility] Radiology Reading Room POCT-GLUCOSE [id number] 08:34:59 Test Item Value Reference Range Interpretation Comments POC-GLUCOSE METER 147 mg/dL 70-110 H : TESTED A T [facility] (BEAKER) (test code [address], = 1538) [facility] 77 478: Social Sciences Chair/Techni faviola ID = [id number] for Aileen Loja BASIC METABOLIC [id number] 06:37:03 Test Item Value Reference Range Interpretation Comments SODIUM (BEAKER) 139 meq/L 135-148 (test code = 381) POTASSIUM 3.2 meq/L 3.6-5.5 L (BEAKER) (test code = 379) CHLORIDE (BEAKER) 103 meq/L 98-106 (test code = 382) CO2 (BEAKER) 26 meq/L 20-29 (test code = 355) BLOOD UREA 10 mg/dL 10-26 NITROGEN (BEAKER) (test code = 354) CREATININE 3.07 mg/dL 0.50-1.20 H (BEAKER) (test code = 358) GLUCOSE RANDOM 134 mg/dL 70-110 H (BEAKER) (test code = 652) CALCIUM (BEAKER) 9.3 mg/dL 8.5-10.5 (test code = 697) EGFR (BEAKER) 15 Interpretatio n of eGFR (test code = mL/min/1.73 values Stage De scription 1092) sq m Result G1 Dulce l or high >=90 G2 Mildly decreased 60-89 G3a Mildl y to moderately 45-5 9 G3b Moderately to s everely 30-44 G4 Severl y decreased 15-29 G5 Kidney failure <15Reported eGF R is based on the CKD-EPI 2020 equation that d oes not use a race coefficientEsti mated GFR is not as accur ate as Creatinine Nilda roni in predicting glom erular filtration rate . Estimated GFR is not appl icable for dialysis patien ts Social Sciences Chair ID - LITOOperator ID - LITOOperator ID - LITOOperator ID - LITOOperator ID - LITOOperator ID - LITOOperator ID - LITOOperator ID - LITOOperator ID - LITOOperator ID - LITOOperator ID - LITOOperator ID - LITOOperator ID - LITOCBC (HEMOGRAM ONLY)2022-01-14 06:21:05 Test Item Value Reference Range Interpretation Comments WHITE BLOOD CELL COUNT (BEAKER) 7.5 K/ L 4.0-10.0 (test code = 775) RED BLOOD CELL COUNT (BEAKER) 4.09 M/ L 4.00-5.00 (test code = 761) HEMOGLOBIN (BEAKER) (test code = 10.9 GM/DL 12.0-15.5 L 410) HEMATOCRIT (BEAKER) (test code = 34.2 % 36.0-46.0 L 411) MEAN CORPUSCULAR VOLUME (BEAKER) 83.6 fL 82.0-99.0 (test code = 753) MEAN CORPUSCULAR HEMOGLOBIN 26.7 pg 27.0-33.0 L (BEAKER) (test code = 751) MEAN CORPUSCULAR HEMOGLOBIN CONC 31.9 GM/DL 32.0-36.0 L (BEAKER) (test code = 752) RED CELL DISTRIBUTION WIDTH 18.9 % 12.0-15.0 H (BEAKER) (test code = 412) PLATELET COUNT (BEAKER) (test 275 K/CU MM 150-430 code = 756) MEAN PLATELET VOLUME (BEAKER) 10.7 fL 6.0-11.5 (test code = 754) NUCLEATED RED BLOOD CELLS 0 /100 WBC 0-0 (BEAKER) (test code = 413) POCT-GLUCOSE [id number] 19:50:36 Test Item Value Reference Range Interpretation Comments POC-GLUCOSE METER 199 mg/dL 70-110 H : TESTED A T [facility] [address] (BEAKER) (test code [address], = 1538) [place] [id number]: Social Sciences Chair/Techni faviola ID = [id number] for Ina Agrawal POCT-GLUCOSE [id number] 16:52:12 Test Item Value Reference Range Interpretation Comments POC-GLUCOSE METER 150 mg/dL 70-110 H : TESTED A T [facility] [address] (BEAKER) (test code [address], = 1538) [place] [id number]: Social Sciences Chair/Techni faviola ID = [id number] for Aileen Loja POCT-GLUCOSE [id number] 14:05:10 Test Item Value Reference Range Interpretation Comments POC-GLUCOSE METER 122 mg/dL 70-110 H : TESTED A T [facility] [address] (BEAKER) (test code [address], = 1538) [place] [id number]: Social Sciences Chair/Techni faviola ID = [id number] for Nancy Douglass Blood gas, [id number] 09:06:33 Test Item Value Reference Range Interpretation Comments pH, Arterial (test code 7.45 7.35-7.45 = 2744-1) pCO2, Arterial (test 40 See_Comment [Autom ated message] code = 2019-8) The system [employer] generated this result transmit kenneth reference range : 35 - 45 mm Hg. The reference range was not used to interpret this result as normal/abnormal . pO2, Arterial (test 79 See_Comment L [Automa kenneth message] code = 2703-7) The system [employer] generated this result transmit kenneth reference range : 80 - 90 mm Hg. The reference range was not used to interpret this result as normal/abnormal . O2 Sat, Arterial (test 96.2 % 96.0-97.0 code = 2708-6) HCO3, Arterial (test 27 mmol/L 21-29 code = 1960-4) Base Excess, Arterial 3.1 mmol/L -2.0-3.0 H (test code = 1925-7) Patient Temperature 37.0 (test code = 8310-5) FIO2 (test code = 1819) 21 Lab Interpretation Abnormal (test code = 66739-4) [facility] [id number] 09:06:33 Test Item Value Reference Range Interpretation Comments PH ARTERIAL (BEAKER) (test code = 7.45 7.35-7.45 383) PCO2 ARTERIAL (BEAKER) (test code 40 mm Hg 35-45 = 384) PO2 ARTERIAL (BEAKER) (test code = 79 mm Hg 80-90 L 385) O2 SATURATION ARTERIAL (BEAKER) 96.2 % 96.0-97.0 (test code = 386) HCO3 ARTERIAL (BEAKER) (test code 27 mmol/L 21-29 = 388) BASE EXCESS ARTERIAL (BEAKER) 3.1 mmol/L -2.0-3.0 H (test code = 387) PATIENT TEMPERATURE (BEAKER) (test 37.0 code = 1818) FIO2 (BEAKER) (test code = 1819) 21.0 POCT-GLUCOSE [id number] 08:36:44 Test Item Value Reference Range Interpretation Comments POC-GLUCOSE METER 132 mg/dL 70-110 H : TESTED A T [facility] 1317 (BEAKER) (test code [facility] [address] = [facility] 77 478: Social Sciences Chair/Techni faviola ID = [id number] for Aileen Loja TSH/FREE T4 IF [id number] 08:14:31 Test Item Value Reference Range Interpretation Comments THYROID STIMULATING HORMONE 1.790 uIU/mL 0.350-5.500 (BEAKER) (test code = 772) Social Sciences Chair ID - DSENSONCOMPREHENSIVE METABOLIC [id number] 08:04:08 Test Item Value Reference Range Interpretation Comments TOTAL PROTEIN 5.6 gm/dL 6.0-8.5 L (BEAKER) (test code = 770) ALBUMIN (BEAKER) 2.5 g/dL 3.5-5.0 L (test code = 1145) ALKALINE 84 U/L 30-115 PHOSPHATASE (BEAKER) (test code = 346) BILIRUBIN TOTAL 0.3 mg/dL 0.1-1.2 (BEAKER) (test code = 377) SODIUM (BEAKER) 138 meq/L 135-148 (test code = 381) POTASSIUM (BEAKER) 3.5 meq/L 3.6-5.5 L (test code = 379) CHLORIDE (BEAKER) 103 meq/L 98-106 (test code = 382) CO2 (BEAKER) (test 23 meq/L 20-29 code = 355) BLOOD UREA 16 mg/dL 10-26 NITROGEN (BEAKER) (test code = 354) CREATININE 3.50 mg/dL 0.50-1.20 H (BEAKER) (test code = 358) GLUCOSE RANDOM 136 mg/dL 70-110 H (BEAKER) (test code = 652) CALCIUM (BEAKER) 9.1 mg/dL 8.5-10.5 (test code = 697) AST (SGOT) 16 U/L 5-40 (BEAKER) (test code = 353) ALT (SGPT) < U/L 5-50 L (BEAKER) (test code = 347) EGFR (BEAKER) 13 Interpretatio n of eGFR (test code = 1092) mL/min/1.[address] age Description sq m Result G1 Dulce l or high >=90 G2 Mildly decreased 60-89 G3a Mildl y to moderately 45-5 9 G3b Moderately to s everely 30-44 G4 Severl y decreased 15-29 G5 Kidney failure <15Reported eGF R is based on the CKD-EPI 2021 equation that d oes not use a race coefficientEsti mated GFR is not as accur ate as Creatinine Nilda roni in predicting glom erular filtration rate . Estimated GFR is not appl icable for dialysis patien ts Social Sciences Chair ID - DSENSONOperator ID - DSENSONOperator ID - DSENSONOperator ID - DSENSONOperator ID - DSENSONOperator ID - DSENSONOperator ID - DSENSONOperator ID - DSENSONOperator ID - DSENSONOperator ID - DSENSONOperator ID - DSENSONOperator ID - DSENSONOperator ID - DSENSONOperator ID - DSENSONOperatorID - DSENSONOperator ID - DSENSONOperator ID - DSENSONOperator ID - DSENSONOperator ID - DSENSONTROPONIN [id number] 08:03:10 Test Item Value Reference Range Interpretation Comments TROPONIN I (BEAKER) (test code = 0.07 ng/mL 0.00-0.15 397) Troponin I (TnI) levels must be interpreted in the context of the presenting symptoms and the clinical findings. Elevated TnI levels indicate myocardial damage, but are not specific for ischemic heart disease. Elevated TnI levels are seen in patients with other cardiac conditions (including myocarditis and congestive heart failure), and slight TnI elevations occur in patients with other conditions, including sepsis, renal failure, acidosis, acute neurological disease, and persistent tachyarrhythmia.Social Sciences Chair ID - DSENSONCT, BRAIN, WITHOUT [id number] 07:49:00 [facility] : 1950 Sex: FFINAL REPORT CT, BRAIN, WITHOUT CONTRAST CLINICAL INDICATION: Delirium COMPARISON:None TECHNIQUE: Noncontrast axial CT imaging of the brain and skull. DOSE REDUCTION: Dose modulation, iterative reconstruction, and/or weight-based adjustment of the mA/kV was utilized to reduce the radiation dose to as low as reasonably achievable. FINDINGS:No intracranial hemorrhage, midline shift or mass effect. Midline structures are normally developed. Scattered foci of hypoattenuation are present throughout the periventricular and subcortical white matter, and, although nonspecific by imaging,statistically represent mild chronic microvascular ischemic changes in this age group. No hydrocephalus. Orbits are within normal limits. Prior bilateral lens surgery. Atherosclerotic calcification of the intracranial internal carotid arteries. No obstructive paranasal sinus disease. IMPRESSION: No acute intracranial findings If there is persistent clinical concern for intracranial pathology, MR examination is recommended for further characterization. Signed: Suzi De La Cruz MDRep[facility] Verified Date/Time: 01/13/2022 07:49:20 CBC W/PLT COUNT & AUTO [id number] 07:39:37 Test Item Value Reference Range Interpretation Comments WHITE BLOOD CELL COUNT (BEAKER) 8.4 K/ L 4.0-10.0 (test code = 775) RED BLOOD CELL COUNT (BEAKER) 3.84 M/ L 4.00-5.00 L (test code = 761) HEMOGLOBIN (BEAKER) (test code = 10.1 GM/DL 12.0-15.5 L 410) HEMATOCRIT (BEAKER) (test code = 32.5 % 36.0-46.0 L 411) MEAN CORPUSCULAR VOLUME (BEAKER) 84.6 fL 82.0-99.0 (test code = 753) MEAN CORPUSCULAR HEMOGLOBIN 26.3 pg 27.0-33.0 L (BEAKER) (test code = 751) MEAN CORPUSCULAR HEMOGLOBIN CONC 31.1 GM/DL 32.0-36.0 L (BEAKER) (test code = 752) RED CELL DISTRIBUTION WIDTH 18.6 % 12.0-15.0 H (BEAKER) (test code = 412) PLATELET COUNT (BEAKER) (test 258 K/CU MM 150-430 code = 756) MEAN PLATELET VOLUME (BEAKER) 9.6 fL 6.0-11.5 (test code = 754) NUCLEATED RED BLOOD CELLS 0 /100 WBC 0-0 (BEAKER) (test code = 413) NEUTROPHILS RELATIVE PERCENT 56 % (BEAKER) (test code = 429) LYMPHOCYTES RELATIVE PERCENT 23 % (BEAKER) (test code = 430) MONOCYTES RELATIVE PERCENT 14 % (BEAKER) (test code = 431) EOSINOPHILS RELATIVE PERCENT 5 % (BEAKER) (test code = 432) BASOPHILS RELATIVE PERCENT 1 % (BEAKER) (test code = 437) NEUTROPHILS ABSOLUTE COUNT 4.73 K/ L 1.80-8.00 (BEAKER) (test code = 670) LYMPHOCYTES ABSOLUTE COUNT 1.93 K/ L 1.48-4.50 (BEAKER) (test code = 414) MONOCYTES ABSOLUTE COUNT (BEAKER) 1.13 K/ L 0.00-1.30 (test code = 415) EOSINOPHILS ABSOLUTE COUNT 0.44 K/ L 0.00-0.50 (BEAKER) (test code = 416) BASOPHILS ABSOLUTE COUNT (BEAKER) 0.09 K/ L 0.00-0.20 (test code = 417) IMMATURE GRANULOCYTES-RELATIVE 1 % 0-0 H PERCENT (BEAKER) (test code = 2801) POCT-GLUCOSE [id number] 07:15:45 Test Item Value Reference Range Interpretation Comments POC-GLUCOSE METER 127 mg/dL 70-110 H : TESTED A T [facility] 1317 (BEAKER) (test code [facility], = 1538) [place] [id number]: Social Sciences Chair/Techni faviola ID = [id number] for Aileen Loja POCT-GLUCOSE [id number] 06:32:48 Test Item Value Reference Range Interpretation Comments POC-GLUCOSE METER 133 mg/dL 70-110 H : TESTED A T [facility] 1317 (BEAKER) (test code [facility], = 1538) [place] [id number]: Social Sciences Chair/Techni faviola ID = [id number] for Mekhi bi, Libia POCT-GLUCOSE [id number] 21:05:05 Test Item Value Reference Range Interpretation Comments POC-GLUCOSE METER 195 mg/dL 70-110 H : TESTED A T SLSL 1317 (BEAKER) (test code [facility], = 1538) [place] [id number]: Social Sciences Chair/Techni faviola ID = [id number] for Mekhi bi, Libia POCT-GLUCOSE [id number] 19:32:35 Test Item Value Reference Range Interpretation Comments POC-GLUCOSE METER 180 mg/dL 70-110 H : TESTED A T [facility] 1317 (BEAKER) (test code [facility], = 1538) [place] [id number]: Social Sciences Chair/Techni faviola ID = [id number] for Hallieford ins, Odalys POCT-GLUCOSE [id number] 19:30:16 Test Item Value Reference Range Interpretation Comments POC-GLUCOSE METER 50 mg/dL 70-110 L : TESTED A T SLSL 1317 (BEAKER) (test code = [address] [address] [facility] [place] [id number]: Social Sciences Chair/Techni faviola ID = [id number] for Hallieford ins, Odalys POCT-GLUCOSE [id number] 18:09:32 Test Item Value Reference Range Interpretation Comments POC-GLUCOSE METER 63 mg/dL 70-110 L : TESTED A T SLSL 1317 (BETG) (test code = [address], 1538) [facility] 77 478: Social Sciences Chair/Techni faviola ID = [id number] for Robe Agrawal, TUNNELED CATHETER [id number] 17:04:00Reason for exam:->dialysis catheter with poor flows on dialysis, very positional - please place tunneled dialysis catheter in a new position. [facility] 1950 Sex: FFINAL REPORT Tunneled dialysis catheter exchange, 01/12/2022. History: Renal failure, poor flow through the existing catheter. Modality: Sonography and fluoroscopy. Sedation: None. Wire Rope Sling Maker: Mitzy. Network Developer: None. Approach: Internal jugular vein - right. Estimated blood loss: <1 cc. Specimen: None. Fluoroscopy Time: 0.5 min. Dose (Ka,r): 4 mGy. Technique: Informed written consent was obtained. Discussion of risks, benefits, and alternatives were made with the patient.The patient expressed understanding and agreed to proceed. All aspects of maximal sterile barrier technique were utilized for this procedure, including washing hands with conventional soap and water oralcohol base hand rubs, utilization of sterile scrub solution for skin preparation, cap, mask, sterile gloves, sterile gown, and sterile full body drape. Sterile ultrasound techniques were followed, including sterile gel and sterile probe covers. Several attempts at repositioning the existing catheterto improve the flow were unsuccessful. The skin was anesthetized with 2% lidocaine. A 0.035 inch wire was placed through the existing right IJ tunneled catheter into the right atrium. Microcatheter wasremoved and a new 23 cm 15.5 Israeli Duraflow 2 catheter was advanced through the tunnel into the vessel, into the catheter tip was in the inferior right atrium. The ports were tested demonstrating thatboth aspirated easily following placement. The ports were then packed with heparin. The catheter wassutured to the skin with 2-0 silk to secure its placement. Vital signs were monitored throughout theprocedure by a nurse, and remained stable. The patient tolerated the procedure well and left the depa rtment in the same condition. Results: Spot radiograph of the chest demonstrates the new dialysis catheter to terminate in the inferior right atrium. Impression: Successful, uncomplicated exchange ofa right internal jugular tunneled dialysis catheter using fluoroscopic guidance. Signed: Nick Forrester MDReport Verified Date/Time: 01/12/2022 17:04:33 Reading Location: [facility] Reading Room POCT-GLUCOSE [id number] 12:20:13 Test Item Value Reference Range Interpretation Comments POC-GLUCOSE METER 107 mg/dL 70-110 : TESTED A T [facility]SL 1317 (BEAKER) (test code [address], = 1538) [place] [address]: Social Sciences Chair/Techni faviola ID = [id number] for Will iams, Robe POCT-GLUCOSE [id number] 09:01:23 Test Item Value Reference Range Interpretation Comments POC-GLUCOSE METER 118 mg/dL 70-110 H : TESTED A T [facility] 1317 (BEAKER) (test code [address], = 1538) [place] [id number]: Social Sciences Chair/Techni faviola ID = [id number] for Will iams, Robe CBC W/PLT COUNT & AUTO [id number] 06:58:41 Test Item Value Reference Range Interpretation Comments WHITE BLOOD CELL COUNT (BEAKER) 7.5 K/ L 4.0-10.0 (test code = 775) RED BLOOD CELL COUNT (BEAKER) 3.88 M/ L 4.00-5.00 L (test code = 761) HEMOGLOBIN (BEAKER) (test code = 10.4 GM/DL 12.0-15.5 L 410) HEMATOCRIT (BEAKER) (test code = 33.4 % 36.0-46.0 L 411) MEAN CORPUSCULAR VOLUME (BEAKER) 86.1 fL 82.0-99.0 (test code = 753) MEAN CORPUSCULAR HEMOGLOBIN 26.8 pg 27.0-33.0 L (BEAKER) (test code = 751) MEAN CORPUSCULAR HEMOGLOBIN CONC 31.1 GM/DL 32.0-36.0 L (BEAKER) (test code = 752) RED CELL DISTRIBUTION WIDTH 19.0 % 12.0-15.0 H (BEAKER) (test code = 412) PLATELET COUNT (BEAKER) (test 260 K/CU MM 150-430 code = 756) MEAN PLATELET VOLUME (BEAKER) 9.3 fL 6.0-11.5 (test code = 754) NUCLEATED RED BLOOD CELLS 0 /100 WBC 0-0 (BEAKER) (test code = 413) (MANUAL DIFFERENTIAL)2022-01-12 06:58:41 Test Item Value Reference Range Interpretation Comments NEUTROPHILS - REL (DIFF) (BEAKER) 45 % (test code = 1359) LYMPHOCYTES - REL (DIFF) (BEAKER) 30 % (test code = 1360) MONOCYTES - REL (DIFF) (BEAKER) 23 % (test code = 1361) BANDS - REL (DIFF) (BEAKER) (test 2 % 0-10 code = 1348) NEUTROPHILS - ABS (DIFF) (BEAKER) 3.38 K/ L 1.80-8.00 (test code = 1365) LYMPHOCYTES - ABS (DIFF) (BEAKER) 2.25 K/ L 1.48-4.50 (test code = 1366) MONOCYTES - ABS (DIFF) (BEAKER) 1.73 K/ L 0.00-1.30 H (test code = 1367) BANDS-ABS (DIFF) (BEAKER) (test 0.2 K/ L 0.0-0.8 code = 1349) TOTAL COUNTED (BEAKER) (test code = 100 1351) BANDS + SEGMENTED NEUTROPHILS 3.53 (BEAKER) (test code = 1352) WBC MORPHOLOGY (BEAKER) (test code Normal = 487) PLT MORPHOLOGY (BEAKER) (test code Normal = 486) ANISOCYTOSIS (BEAKER) (test code = 1+ few 961) BASIC METABOLIC [id number] 06:30:57 Test Item Value Reference Range Interpretation Comments SODIUM (BEAKER) 138 meq/L 135-148 (test code = 381) POTASSIUM 3.8 meq/L 3.6-5.5 (BEAKER) (test code = 379) CHLORIDE (BEAKER) 104 meq/L 98-106 (test code = 382) CO2 (BEAKER) 23 meq/L 20-29 (test code = 355) BLOOD UREA 9 mg/dL 10-26 L NITROGEN (BEAKER) (test code = 354) CREATININE 2.76 mg/dL 0.50-1.20 H (BEAKER) (test code = 358) GLUCOSE RANDOM 122 mg/dL 70-110 H (BEAKER) (test code = 652) CALCIUM (BEAKER) 9.2 mg/dL 8.5-10.5 (test code = 697) EGFR (BEAKER) 18 Interpretatio n of eGFR (test code = mL/min/1.73 values Stage De scription 1092) sq m Result G1 Dulce l or high >=90 G2 Mildly decreased 60-89 G3a Mildl y to moderately 45-5 9 G3b Moderately to s everely 30-44 G4 Severl y decreased 15-29 G5 Kidney failure <15Reported eGF R is based on the CKD-EPI 2020 equation that d oes not use a race coefficientEsti mated GFR is not as accur ate as Creatinine Nilda tamayo in predicting glom erular filtration rate . Estimated GFR is not appl icable for dialysis patien ts Social Sciences Chair ID - LITOOperator ID - LITOOperator ID - LITOOperator ID - LITOOperator ID - LITOOperator ID - LITOOperator ID - LITOOperator ID - LITOOperator ID - LITOOperator ID - [id number] 06:19:11 Test Item Value Reference Range Interpretation Comments MAGNESIUM (BEAKER) (test code = 1.9 mg/dL 1.5-3.0 627) Social Sciences Chair ID - LITOOperator ID - LITOOperator ID - LITOOperator ID - MARTÍN [id number] 06:16:11 Test Item Value Reference Range Interpretation Comments PHOSPHORUS (BEAKER) (test code = 3.4 mg/dL 2.5-4.5 604) Social Sciences Chair ID - LITOPROTHROMBIN TIME/[id number] 06:03:04 Test Item Value Reference Range Interpretation Comments PROTIME (BEAKER) 12.4 seconds 9.3-12.0 H Final Infor mation (test code = 759) (Auto Outp ut) INR (BEAKER) (test 1.14 See_Comment Final Inf ormation code = 370) (Auto Output) [Automated mess age] The system [employer] generated this result transmitted ref erence range: <=5.90. The reference range was not used to int erpret this result as normal/abnormal . RECOMMENDED COUMADIN/WARFARIN INR THERAPY RANGESSTANDARD DOSE: 2.0 - 3.0 Includes: PROPHYLAXIS for venous thrombosis, systemic embolization; TREATMENT for venous thrombosis and/or pulmonary embolus.HIGH RISK: Target INR is 2.5-3.5 for patients with mechanical heart valves.[id number] 06:03:04 Test Item Value Reference Range Interpretation Comments PARTIAL THROMBOPLASTIN 29.5 seconds 23.0-35.0 Final Information TIME (BEAKER) (test (Auto Ou tput) code = 760) POCT-GLUCOSE [id number] 20:00:47 Test Item Value Reference Range Interpretation Comments POC-GLUCOSE METER 172 mg/dL 70-110 H : TESTED A T SLSL 1317 (BEAKER) (test code [address], = 1538) [place] [address]: Social Sciences Chair/Techni faviola ID = [id number] for Will iams, Ina POCT-GLUCOSE [id number] 18:09:30 Test Item Value Reference Range Interpretation Comments POC-GLUCOSE METER 121 mg/dL 70-110 H : TESTED A T SLSL 1317 (BEAKER) (test code [address], = 1538) [place] [id number]: Social Sciences Chair/Techni faviola ID = [id number] for Will iams, Robe POCT-GLUCOSE [id number] 12:48:21 Test Item Value Reference Range Interpretation Comments POC-GLUCOSE METER 102 mg/dL 70-110 : TESTED A T SLSL 1317 (BEAKER) (test code [address], = 1538) [place] [id number]: Social Sciences Chair/Techni faviola ID = [id number] for AvelinoKerline montague POCT-GLUCOSE [id number] 08:00:17 Test Item Value Reference Range Interpretation Comments POC-GLUCOSE METER 119 mg/dL 70-110 H : TESTED A T [facility]SL 1317 (BEAKER) (test code [address], = 1538) [place] [id number]: Social Sciences Chair/Techni faviola ID = [id number] for Robe Agrawal POCT-GLUCOSE [id number] 21:28:11 Test Item Value Reference Range Interpretation Comments POC-GLUCOSE METER 227 mg/dL 70-110 H : TESTED A T [facility] 1317 (BEAKER) (test code [address], = 1538) [place] [id number]: Social Sciences Chair/Techni faviola ID = [id number] for Libia Pop POCT-GLUCOSE [id number] 15:35:44 Test Item Value Reference Range Interpretation Comments POC-GLUCOSE METER 168 mg/dL 70-110 H : TESTED A T SLSL 1317 (BEAKER) (test code [address], = 1538) [place] [id number]: Social Sciences Chair/Techni faviola ID = [id number] for Maribel Jimenez, REPL CVC/TUNNELED W/O [id number] 11:59:00 [facility] : 1950 Sex: FFINAL REPORT PROCEDURE: Tunneled central venous catheter exchange Procedural PersonnelAttending physician(s): Consuelo Ugarte physician(s): NoneResident physician(s): NoneAdvanced practice provider(s): None Pre-procedure diagnosis: Malfunctioning catheterPost-procedure diagnosis: SameIndication: Malfunction of indwelling tunneled catheterAdditional clinical history: None Complications: No immediate complications. IMPRESSION: Right-sided internal jugular tunneled dialysis catheter exchange, with its tip in the expected location of the cavoatrial junction. Plan: The catheter may be used immediately. PROCEDURE SUMMARY:- Tunneled central venous catheter exchange with fluoroscopic guidance- Additional procedure(s): None PROCEDURE DETAILS: Pre-procedureConsent: Informed consent for the procedure including risks, benefits and alternatives was obtained and time-out was performed prior to the procedure.Preparation (MIP S): The site was prepared and draped using all elements of maximal sterile barrier technique including sterile gloves, sterile gown, cap, mask, large sterile sheet, sterile ultrasound probe cover, handhygiene and cutaneous antisepsis with 2% chlorhexidine. Medical reason for site preparation exception (MIPS): Not applicable Anesthesia/sedationLevel of anesthesia/sedation: Moderate sedation (conscious sedation)Anesthesia/sedation administered by: Independent trained observer under attending supervision with continuous monitoring of the patient\X2019\s level of consciousness and physiologic statusTotal intra-service sedation time (minutes): 30 Catheter exchange2 wires were passed through the indwelling tunneled central venous catheter and into the at atrium. The catheter was removed, and a new catheter was advanced under fluoroscopic guidance. Catheter tip location was fluoroscopically verified and a permanent image was stored. Catheter size (Israeli): 15.5Catheter flush: Heparin (100 units/mL) Cl osureThe catheter was secured. A sterile dressing was applied.Catheter securement technique: Non-absorbable suture ContrastContrast agent: NoneContrast volume (mL): 0 Radiation DoseFluoroscopy time: 1 minute 17 secondsDose: 13 mgy Additional DetailsAdditional description of procedure: NoneEquipment details: NoneSpecimens removed: NoneEstimated blood loss (mL): Less than 10Standardized report: [email or web address] AttestationSigner name: Vicki Meyers attest that I was present for the entire procedure. I reviewed the stored images and agree with the report as written. Signed: Vicki Diopeport Verified Date/Time: 01/10/2022 11:59:48 Reading Location: [facility] Radiology Reading Room POCT-GLUCOSE [id number] 11:32:33 Test Item Value Reference Range Interpretation Comments POC-GLUCOSE METER 105 mg/dL 70-110 : TESTED A T [facility] 1317 (BEAKER) (test code [address], = 1538) [facility] [address]: Social Sciences Chair/Techni faviola ID = [id number] for Anne breen, Maribel BASIC METABOLIC [id number] 04:51:32 Test Item Value Reference Range Interpretation Comments SODIUM (BEAKER) 138 meq/L 135-148 (test code = 381) POTASSIUM 3.7 meq/L 3.6-5.5 (BEAKER) (test code = 379) CHLORIDE (BEAKER) 105 meq/L 98-106 (test code = 382) CO2 (BEAKER) 21 meq/L 20-29 (test code = 355) BLOOD UREA 13 mg/dL 10-26 NITROGEN (BEAKER) (test code = 354) CREATININE 3.09 mg/dL 0.50-1.20 H (BEAKER) (test code = 358) GLUCOSE RANDOM 120 mg/dL 70-110 H (BEAKER) (test code = 652) CALCIUM (BEAKER) 9.1 mg/dL 8.5-10.5 (test code = 697) EGFR (BEAKER) 15 Interpretatio n of eGFR (test code = mL/min/1.73 values Stage De scription 1092) sq m Result G1 Dulce l or high >=90 G2 Mildly decreased 60-89 G3a Mildl y to moderately 45-5 9 G3b Moderately to s everely 30-44 G4 Severl y decreased 15-29 G5 Kidney failure <15Reported eGF R is based on the CKD-EPI 2020 equation that d oes not use a race coefficientEsti mated GFR is not as accur ate as Creatinine Nilda tamayo in predicting glom erular filtration rate . Estimated GFR is not appl icable for dialysis patien ts Social Sciences Chair ID - LITOOperator ID - LITOOperator ID - LITOOperator ID - LITOOperator ID - LITOOperator ID - LITOOperator ID - LITOOperator ID - LITOOperator ID - LITOOperator ID - [id number] 04:50:58 Test Item Value Reference Range Interpretation Comments MAGNESIUM (BEAKER) (test code = 2.0 mg/dL 1.5-3.0 627) Social Sciences Chair ID - LITOOperator ID - LITOOperator ID - LITOOperator ID - MARTÍN [id number] 04:48:19 Test Item Value Reference Range Interpretation Comments PHOSPHORUS (BEAKER) (test code = 3.9 mg/dL 2.5-4.5 604) Social Sciences Chair ID - [id number] 04:44:00 Test Item Value Reference Range Interpretation Comments PARTIAL THROMBOPLASTIN 51.7 seconds 23.0-35.0 H Final Information TIME (BEAKER) (test (Auto Ou tput) code = 760) CBC W/PLT COUNT & AUTO [id number] 04:24:30 Test Item Value Reference Range Interpretation Comments WHITE BLOOD CELL COUNT (BEAKER) 7.9 K/ L 4.0-10.0 (test code = 775) RED BLOOD CELL COUNT (BEAKER) 3.84 M/ L 4.00-5.00 L (test code = 761) HEMOGLOBIN (BEAKER) (test code = 10.1 GM/DL 12.0-15.5 L 410) HEMATOCRIT (BEAKER) (test code = 32.9 % 36.0-46.0 L 411) MEAN CORPUSCULAR VOLUME (BEAKER) 85.7 fL 82.0-99.0 (test code = 753) MEAN CORPUSCULAR HEMOGLOBIN 26.3 pg 27.0-33.0 L (BEAKER) (test code = 751) MEAN CORPUSCULAR HEMOGLOBIN CONC 30.7 GM/DL 32.0-36.0 L (BEAKER) (test code = 752) RED CELL DISTRIBUTION WIDTH 18.6 % 12.0-15.0 H (BEAKER) (test code = 412) PLATELET COUNT (BEAKER) (test 266 K/CU MM 150-430 code = 756) MEAN PLATELET VOLUME (BEAKER) 9.3 fL 6.0-11.5 (test code = 754) NUCLEATED RED BLOOD CELLS 0 /100 WBC 0-0 (BEAKER) (test code = 413) NEUTROPHILS RELATIVE PERCENT 62 % (BEAKER) (test code = 429) LYMPHOCYTES RELATIVE PERCENT 24 % (BEAKER) (test code = 430) MONOCYTES RELATIVE PERCENT 8 % (BEAKER) (test code = 431) EOSINOPHILS RELATIVE PERCENT 5 % (BEAKER) (test code = 432) BASOPHILS RELATIVE PERCENT 1 % (BEAKER) (test code = 437) NEUTROPHILS ABSOLUTE COUNT 4.86 K/ L 1.80-8.00 (BEAKER) (test code = 670) LYMPHOCYTES ABSOLUTE COUNT 1.91 K/ L 1.48-4.50 (BEAKER) (test code = 414) MONOCYTES ABSOLUTE COUNT (BEAKER) 0.59 K/ L 0.00-1.30 (test code = 415) EOSINOPHILS ABSOLUTE COUNT 0.38 K/ L 0.00-0.50 (BEAKER) (test code = 416) BASOPHILS ABSOLUTE COUNT (BEAKER) 0.04 K/ L 0.00-0.20 (test code = 417) IMMATURE GRANULOCYTES-RELATIVE 1 % 0-0 H PERCENT (BEAKER) (test code = 2801) POCT-GLUCOSE [id number] 21:26:47 Test Item Value Reference Range Interpretation Comments POC-GLUCOSE METER 127 mg/dL 70-110 H : TESTED A T [address]17 (BEAKER) (test code [address], = 1538) [place] [address]: Social Sciences Chair/Techni faviola ID = [id number] for Libia Pop [id number] 20:08:11 Test Item Value Reference Range Interpretation Comments PARTIAL THROMBOPLASTIN 41.3 seconds 23.0-35.0 H Final Information TIME (BEAKER) (test (Auto Ou tput) code = 760) POCT-GLUCOSE [id number] 17:14:06 Test Item Value Reference Range Interpretation Comments POC-GLUCOSE METER 154 mg/dL 70-110 H : TESTED A T [address] (BEAKER) (test code [address], = 1538) [place] [id number]: Social Sciences Chair/Techni faviola ID = [id number] for Aileen Loja POCT-GLUCOSE [id number] 11:55:38 Test Item Value Reference Range Interpretation Comments POC-GLUCOSE METER 153 mg/dL 70-110 H : TESTED A T [address] (BEAKER) (test code [address], = 1538) [place] [id number]: Social Sciences Chair/Techni faviola ID = [id number] for Maribel Jimenez HEPATITIS B SURFACE [id number] 11:29:52 Test Item Value Reference Range Interpretation Comments HEPATITIS B SURFACE ANTIBODY 53.8 mIU/mL <8.0 H (BEAKER) (test code = 647) Social Sciences Chair ID - [id number] 10:04:36 Test Item Value Reference Range Interpretation Comments PARTIAL THROMBOPLASTIN 36.3 seconds 23.0-35.0 H Final Information TIME (BEAKER) (test (Auto Ou tput) code = 760) POCT-GLUCOSE [id number] 07:31:03 Test Item Value Reference Range Interpretation Comments POC-GLUCOSE METER 111 mg/dL 70-110 H : TESTED A T [address] (BEAKER) (test code [address], = 1538) [place] [address]: Social Sciences Chair/Techni faviola ID = [id number] for Maribel Jimenez [id number] 06:13:46 Test Item Value Reference Range Interpretation Comments MAGNESIUM (BEAKER) (test code = 1.8 mg/dL 1.5-3.0 627) Social Sciences Chair ID - [id number] ID - [id number] ID - [id number] ID - [id number] METABOLIC [id number] 06:12:49 Test Item Value Reference Range Interpretation Comments SODIUM (BEAKER) 137 meq/L 135-148 (test code = 381) POTASSIUM 3.6 meq/L 3.6-5.5 (BEAKER) (test code = 379) CHLORIDE (BEAKER) 103 meq/L 98-106 (test code = 382) CO2 (BEAKER) 25 meq/L 20-29 (test code = 355) BLOOD UREA 10 mg/dL 10-26 NITROGEN (BEAKER) (test code = 354) CREATININE 2.03 mg/dL 0.50-1.20 H (BEAKER) (test code = 358) GLUCOSE RANDOM 112 mg/dL 70-110 H (BEAKER) (test code = 652) CALCIUM (BEAKER) 8.6 mg/dL 8.5-10.5 (test code = 697) EGFR (BEAKER) 25 Interpretatio n of eGFR (test code = mL/min/1.73 values Stage De scription 1092) sq m Result G1 Dulce l or high >=90 G2 Mildly decreased 60-89 G3a Mildl y to moderately 45-5 9 G3b Moderately to s everely 30-44 G4 Severl y decreased 15-29 G5 Kidney failure <15Reported eGF R is based on the CKD-EPI 2020 equation that d oes not use a race coefficientEsti mated GFR is not as accur ate as Creatinine Nilda tamayo in predicting glom erular filtration rate . Estimated GFR is not appl icable for dialysis patien ts Social Sciences Chair ID - [id number] ID - [id number] ID - [id number] ID - [id number] ID - [id number] ID - [id number] ID - [id number] ID - [id number] ID - [id number] ID - [id number] 06:10:51 Test Item Value Reference Range Interpretation Comments PHOSPHORUS (BEAKER) (test code = 3.0 mg/dL 2.5-4.5 604) Social Sciences Chair ID - [id number] W/PLT COUNT & AUTO [id number] 05:49:35 Test Item Value Reference Range Interpretation Comments WHITE BLOOD CELL COUNT (BEAKER) 8.8 K/ L 4.0-10.0 (test code = 775) RED BLOOD CELL COUNT (BEAKER) 3.83 M/ L 4.00-5.00 L (test code = 761) HEMOGLOBIN (BEAKER) (test code = 10.1 GM/DL 12.0-15.5 L 410) HEMATOCRIT (BEAKER) (test code = 31.4 % 36.0-46.0 L 411) MEAN CORPUSCULAR VOLUME (BEAKER) 82.0 fL 82.0-99.0 (test code = 753) MEAN CORPUSCULAR HEMOGLOBIN 26.4 pg 27.0-33.0 L (BEAKER) (test code = 751) MEAN CORPUSCULAR HEMOGLOBIN CONC 32.2 GM/DL 32.0-36.0 (BEAKER) (test code = 752) RED CELL DISTRIBUTION WIDTH 18.7 % 12.0-15.0 H (BEAKER) (test code = 412) PLATELET COUNT (BEAKER) (test 291 K/CU MM 150-430 code = 756) MEAN PLATELET VOLUME (BEAKER) 10.0 fL 6.0-11.5 (test code = 754) NUCLEATED RED BLOOD CELLS 0 /100 WBC 0-0 (BEAKER) (test code = 413) NEUTROPHILS RELATIVE PERCENT 67 % (BEAKER) (test code = 429) LYMPHOCYTES RELATIVE PERCENT 20 % (BEAKER) (test code = 430) MONOCYTES RELATIVE PERCENT 7 % (BEAKER) (test code = 431) EOSINOPHILS RELATIVE PERCENT 5 % (BEAKER) (test code = 432) BASOPHILS RELATIVE PERCENT 1 % (BEAKER) (test code = 437) NEUTROPHILS ABSOLUTE COUNT 5.90 K/ L 1.80-8.00 (BEAKER) (test code = 670) LYMPHOCYTES ABSOLUTE COUNT 1.76 K/ L 1.48-4.50 (BEAKER) (test code = 414) MONOCYTES ABSOLUTE COUNT (BEAKER) 0.59 K/ L 0.00-1.30 (test code = 415) EOSINOPHILS ABSOLUTE COUNT 0.44 K/ L 0.00-0.50 (BEAKER) (test code = 416) BASOPHILS ABSOLUTE COUNT (BEAKER) 0.05 K/ L 0.00-0.20 (test code = 417) IMMATURE GRANULOCYTES-RELATIVE 1 % 0-0 H PERCENT (BEAKER) (test code = 2801) POCT-GLUCOSE [id number] 05:17:03 Test Item Value Reference Range Interpretation Comments POC-GLUCOSE METER 108 mg/dL 70-110 : TESTED A T [facility] [address] (BEAKER) (test code [address], = 1538) [facility] [address]: Social Sciences Chair/Techni faviola ID = [id number] for esperanza Abraham [id number] 01:14:37 Test Item Value Reference Range Interpretation Comments PARTIAL THROMBOPLASTIN 37.5 seconds 23.0-35.0 H Final Information TIME (BEAKER) (test (Auto Ou tput) code = 760) HEPATITIS B SURFACE [id number] 18:36:43 Test Item Value Reference Range Interpretation Comments HEPATITIS B SURFACE ANTIGEN (2) Nonreactive Nonreactive (BEAKER) (test code = 2585) Social Sciences Chair ID - [id number] 17:00:29 Test Item Value Reference Range Interpretation Comments POC-GLUCOSE METER 131 mg/dL 70-110 H : TESTED A T [facility] [address]17 (BEAKER) (test code [facility] [address], = 1538) [place] [address]: Social Sciences Chair/Techni faviola ID = [id number] for Migel Holt [id number] 16:38:44 Test Item Value Reference Range Interpretation Comments PARTIAL THROMBOPLASTIN 42.5 seconds 23.0-35.0 H Final Information TIME (BEAKER) (test (Auto Ou tput) code = 760) POCT-GLUCOSE [id number] 12:29:39 Test Item Value Reference Range Interpretation Comments POC-GLUCOSE METER 168 mg/dL 70-110 H : TESTED A T [address] (BEAKER) (test code [address], = 1538) [place] [id number]: Social Sciences Chair/Techni faviola ID = [id number] for Migel Holt POCT-GLUCOSE [id number] 08:10:36 Test Item Value Reference Range Interpretation Comments POC-GLUCOSE METER 136 mg/dL 70-110 H : TESTED A T [address] (BEAKER) (test code [address], = 1538) [place] [id number]: Social Sciences Chair/Techni faviola ID = [id number] for Migel Holt BASIC METABOLIC [id number] 06:18:43 Test Item Value Reference Range Interpretation Comments SODIUM (BEAKER) 137 meq/L 135-148 (test code = 381) POTASSIUM 3.5 meq/L 3.6-5.5 L (BEAKER) (test code = 379) CHLORIDE (BEAKER) 103 meq/L 98-106 (test code = 382) CO2 (BEAKER) 20 meq/L 20-29 (test code = 355) BLOOD UREA 28 mg/dL 10-26 H NITROGEN (BEAKER) (test code = 354) CREATININE 3.86 mg/dL 0.50-1.20 H (BEAKER) (test code = 358) GLUCOSE RANDOM 142 mg/dL 70-110 H (BEAKER) (test code = 652) CALCIUM (BEAKER) 8.9 mg/dL 8.5-10.5 (test code = 697) EGFR (BEAKER) 12 Interpretatio n of eGFR (test code = mL/min/1.73 values Stage De scription 1092) sq m Result G1 Dulce l or high >=90 G2 Mildly decreased 60-89 G3a Mildl y to moderately 45-5 9 G3b Moderately to s everely 30-44 G4 Severl y decreased 15-29 G5 Kidney failure <15Reported eGF R is based on the CKD-EPI 2020 equation that d oes not use a race coefficientEsti mated GFR is not as accur ate as Creatinine Nilda roni in predicting glom erular filtration rate . Estimated GFR is not appl icable for dialysis patien ts Social Sciences Chair ID - LITOOperator ID - LITOOperator ID - LITOOperator ID - LITOOperator ID - LITOOperator ID - LITOOperator ID - LITOOperator ID - LITOOperator ID - LITOOperator ID - [id number] 06:17:29 Test Item Value Reference Range Interpretation Comments MAGNESIUM (BEAKER) (test code = 1.6 mg/dL 1.5-3.0 627) Social Sciences Chair ID - LITOOperator ID - LITOOperator ID - LITOOperator ID - MARTÍN HEMOGLOBIN [id number] 06:16:10 Test Item Value Reference Range Interpretation Comments HEMOGLOBIN A1C (BEAKER) (test code = 8.5 % 4.3-6.1 H 368) Social Sciences Chair ID - [id number] 06:14:08 Test Item Value Reference Range Interpretation Comments PHOSPHORUS (BEAKER) (test code = 5.0 mg/dL 2.5-4.5 H 604) Social Sciences Chair ID - [id number] 05:59:43 Test Item Value Reference Range Interpretation Comments PARTIAL THROMBOPLASTIN 45.4 seconds 23.0-35.0 H Final Information TIME (BEAKER) (test (Auto Ou tput) code = 760) CBC W/PLT COUNT & AUTO [id number] 05:48:29 Test Item Value Reference Range Interpretation Comments WHITE BLOOD CELL COUNT (BEAKER) 11.1 K/ L 4.0-10.0 H (test code = 775) RED BLOOD CELL COUNT (BEAKER) 3.75 M/ L 4.00-5.00 L (test code = 761) HEMOGLOBIN (BEAKER) (test code = 9.9 GM/DL 12.0-15.5 L 410) HEMATOCRIT (BEAKER) (test code = 31.4 % 36.0-46.0 L 411) MEAN CORPUSCULAR VOLUME (BEAKER) 83.7 fL 82.0-99.0 (test code = 753) MEAN CORPUSCULAR HEMOGLOBIN 26.4 pg 27.0-33.0 L (BEAKER) (test code = 751) MEAN CORPUSCULAR HEMOGLOBIN CONC 31.5 GM/DL 32.0-36.0 L (BEAKER) (test code = 752) RED CELL DISTRIBUTION WIDTH 18.6 % 12.0-15.0 H (BEAKER) (test code = 412) PLATELET COUNT (BEAKER) (test 302 K/CU MM 150-430 code = 756) MEAN PLATELET VOLUME (BEAKER) 9.3 fL 6.0-11.5 (test code = 754) NUCLEATED RED BLOOD CELLS 0 /100 WBC 0-0 (BEAKER) (test code = 413) NEUTROPHILS RELATIVE PERCENT 71 % (BEAKER) (test code = 429) LYMPHOCYTES RELATIVE PERCENT 19 % (BEAKER) (test code = 430) MONOCYTES RELATIVE PERCENT 5 % (BEAKER) (test code = 431) EOSINOPHILS RELATIVE PERCENT 4 % (BEAKER) (test code = 432) BASOPHILS RELATIVE PERCENT 0 % (BEAKER) (test code = 437) NEUTROPHILS ABSOLUTE COUNT 7.85 K/ L 1.80-8.00 (BEAKER) (test code = 670) LYMPHOCYTES ABSOLUTE COUNT 2.08 K/ L 1.48-4.50 (BEAKER) (test code = 414) MONOCYTES ABSOLUTE COUNT (BEAKER) 0.53 K/ L 0.00-1.30 (test code = 415) EOSINOPHILS ABSOLUTE COUNT 0.49 K/ L 0.00-0.50 (BEAKER) (test code = 416) BASOPHILS ABSOLUTE COUNT (BEAKER) 0.05 K/ L 0.00-0.20 (test code = 417) IMMATURE GRANULOCYTES-RELATIVE 1 % 0-0 H PERCENT (BEAKER) (test code = 2801) [id number] 21:22:07 Test Item Value Reference Range Interpretation Comments PARTIAL THROMBOPLASTIN 26.5 seconds 23.0-35.0 Final Information TIME (BEAKER) (test (Auto Ou tput) code = 760) POCT-GLUCOSE [id number] 21:12:37 Test Item Value Reference Range Interpretation Comments POC-GLUCOSE METER 136 mg/dL 70-110 H : TESTED A T [facility] [address] (BEAKER) (test code [address], = 1538) [facility] [place] [address]: Social Sciences Chair/Techni faviola ID = [id number] for esperanza Abraham SARS-CoV-2 (COVID-19) RNA [Presence] in Respiratory specimen by LANG with probe [id number] 13:39:12 Test Item Value Reference Range Interpretation Comments SARS-CoV-2 (COVID-19) RNA Not detected [Presence] in Respiratory specimen by LANG with probe detection (test code = 58648-8) Whether patient is employed in a Unknown healthcare setting (test code = 85075-1) Whether the patient has symptoms Unknown related to condition of interest (test code = 98008-6) Whether the patient was Unknown hospitalized for condition of interest (test code = 04327-5) Whether the patient was admitted Unknown to intensive care unit (ICU) for condition of interest (test code = 26769-6) Whether patient resides in a Unknown congregate care setting (test code = 04703-2) status (test code = Unknown 86548-6) Date and time of symptom onset Unknown (test code = 76066-5) [facility] [Presence] in Respiratory specimen by LANG with probe [id number] 23:11:03 Test Item Value Reference Range Interpretation Comments SARS-CoV-2 (COVID-19) RNA Not detected [Presence] in Respiratory specimen by LANG with probe detection (test code = 43678-4) Whether patient is employed in a Unknown healthcare setting (test code = 70257-2) Whether the patient has symptoms Unknown related to condition of interest (test code = 33330-3) Whether the patient was Unknown hospitalized for condition of interest (test code = 85514-8) Whether the patient was admitted Unknown to intensive care unit (ICU) for condition of interest (test code = 76563-4) Whether patient resides in a Unknown congregate care setting (test code = 04545-5) status (test code = Unknown 59245-8) Date and time of symptom onset Unknown (test code = 00577-6) [facility]-CoV-2 (COVID-19) RNA [Presence] in Respiratory specimen by LANG with probe [id number] 11:45:59 Test Item Value Reference Range Interpretation Comments SARS-CoV-2 (COVID-19) RNA Not detected Not-Detected [Presence] in Respiratory specimen by LANG with probe detection (test code = 47083-3) Whether patient is employed in a healthcare setting (test code = 34980-7) Whether the patient has symptoms related to condition of interest (test code = 00289-2) Patient was hospitalized because of this condition (test code = 69235-0) Whether the patient was admitted to intensive care unit (ICU) for condition of interest (test code = 18714-1) Whether patient resides in a congregate care setting (test code = 93639-0) [facility]-CoV-[facility] (COVID-19) RNA [Presence] in Respiratory specimen by LANG with probe [id number] 05:28:15 Test Item Value Reference Range Interpretation Comments SARS-CoV-2 (COVID-19) RNA Not detected Not-Detected [Presence] in Respiratory specimen by LANG with probe detection (test code = 99909-7) [facility] RNA [Presence] in Respiratory specimen by LANG with probe [id number] 23:52:31 Test Item Value Reference Range Interpretation Comments SARS-CoV-2 (COVID-19) RNA Not detected Not-Detected [Presence] in Respiratory specimen by LANG with probe detection (test code = 10891-3) [facility]
[2022-05-02] MEDS ORDERED: ONDANSETRON 4 MG/2 ML VIAL ONE ×2 (22:12→23:19)
[2022-05-02] MEDS ORDERED: FAMOTIDINE 20 MG/2 ML VIAL IV ONE ×2 (22:12→23:19)
[2022-05-02] MEDS ORDERED: NA CHLORIDE 0.9% 0 ML ONE (22:12)
--- NOTE | 2022-05-02 23:09 | RAD REPORT ---
EXAM DESCRIPTION: US - Extrem Venous W Compress Trevin - 05/02/2022 10:58 pm CLINICAL HISTORY: PAIN COMPARISON: UPPER EXTREMITY VENOUS UNILATE dated 05/02/2022; Extrem Venous W Compress Trevin dated 01/01 TECHNIQUE: Real-time sonographic evaluation of the lower extremity deep venous systems was performed using color Doppler, grayscale, and compression. FINDINGS: Bilateral lower extremities. Occlusive thrombus is again identified in the right popliteal vein. The remaining vessels in the righ t and left lower extremity are widely compressible, demonstrate color flow, and are patent. IMPRESSION: Positive for deep venous thrombosis in the right popliteal vein. This may be a chronic f inding as this was also identified on the ultrasound from 01/01/2022. The left lower extremity is neg ative for deep venous thrombosis.
--- NOTE | 2022-05-02 23:10 | RAD REPORT ---
EXAM DESCRIPTION: US - UPPER EXTREMITY VENOUS UNILATE - 05/02/2022 11:00 pm CLINICAL HISTORY: SWELLING COMPARISON: Extrem Venous W Compress Trevin dated 01/01/2022 FINDINGS: Color Doppler, grayscale, and spectral analysis was performed. Negative for venous thrombosis within the right internal jugular vein, right subclavian vein, right a xillary vein, right brachial vein, right basilic vein, right cephalic vein, right ulnar vein, and rig ht radial vein. All vessels were compressible and demonstrated flow on color Doppler. IMPRESSION: Negative for venous thrombosis in the right upper extremity.
[2022-05-02] MEDS ORDERED: FENTANYL CITR 100 MCG/2 ML ONE (23:19)
[2022-05-02] MEDS ORDERED: NA CHLORIDE 0.9% 250 ML ONE (23:19)
[2022-05-02 23:49] LABS: Hematocrit 24.2 % (36.0-45.0); Lymphocytes % 22.7 % (15.3-44.8); MCV 82.5 fL (80-100); MPV 6.9 fL (7.6-11.3); RBC Red Blood Cell Count 2.93 M/uL (3.86-4.86)
[2022-05-03 00:15] LABS: ALT/SGPT < 10 U/L (13-56); AST/SGOT 11 U/L (15-37); Albumin 2.1 g/dL (3.4-5.0); Alkaline Phosphatase 131 U/L (45-117); BUN Blood Urea Nitrogen 65 mg/dL (7-18); Bicarbonate 21 mmol/L (21-32); Bilirubin Total 0.2 mg/dL (0.2-1.0); Glomerular Filtration Rate 8 ml/min (=/>90); Glucose Level 232 mg/dL (74-106); Lipase 303 U/L (73-393); Magnesium 1.7 mg/dL (1.6-2.4); Potassium 4.1 mmol/L (3.5-5.1); Protein, Total 6.3 g/dL (6.4-8.2); Sodium Level 135 mmol/L (136-145)
[2022-05-03] MEDS ORDERED: ONDANSETRON 4 MG/2 ML VIAL ONE (01:30)
[2022-05-03 02:19] LABS: Urine Blood 2+ (Negative); Urine Glucose Trace (Negative); Urine Protein 2+ (Negative); Urine Specific Gravity 1.025 (1.005-1.030); Urine pH 5.5 (5.0-7.0)
[2022-05-03] MEDS ORDERED: MORPHINE 2 MG/ML SYR ONE ×2 (02:32→06:54)
[2022-05-03] MEDS ORDERED: CEFTRIAXONE 1000 MG/VIAL ONE (02:32)
--- NOTE | 2022-05-03 02:53 | ER ---
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 21:06 Coronavirus screen: At this time, the client does not indicate any symptoms associated jb4 with coronavirus-19. Ebola Screen: No symptoms or risks identified at this time. Initial Sepsis Screen: Does the patient meet any 2 criteria? No. Patient's initial sepsis screen is negative. Does the patient have a suspected source of infection? No. Patient's initial sepsis screen is negative. Risk Assessment: Do you want to hurt yourself or someone else? Patient reports no desire to harm self or others. Onset of symptoms was May 02, 2022. Transition of care: patient was not received from another setting of care. 21:06 Method Of Arrival: EMS: [facility] jb4 21:06 Acuity: JAKE 3 jb4 Historical: - Allergies: 21:06 No Known Allergies; jb4 - Home Meds: 21:06 isosorbide mononitrate 30 mg Oral Tb24 1 tab once daily [Active]; calcitriol 0.25 mcg jb4 Oral cap 1 cap once daily [Active]; bumetanide 1 mg Oral tab 1 tab once daily [Active]; digoxin 125 mcg (0.125 mg) Oral tab 1 tab Every other day [Active]; doxazosin 4 mg Oral tab 1 tab twice a day [Active]; Lantus U-100 Insulin 100 unit/mL Sub-Q crtg 15 unit every morning [Active]; metoprolol tartrate 100 mg Oral tab 1 tab 2 times per day [Active]; pramipexole 1 mg Oral tab 1 tab daily [Active]; Tresiba U-100 Insulin 100 unit/mL subcutaneous soln 100 unit nightly [Active]; pantoprazole oral [Active]; - PMHx: 21:06 CHF; Diabetes - NIDDM; heart attack; Hypertension; insomnia; kidney disease; Rheumatoid jb4 Arthritis; Angina pectoris; COPD; Sleep apnea; - PSHx: 21:06 HD Fistula - Right arm; hysterectomy; pacemaker; jb4 Screenin:15 Abuse screen: Denies threats or abuse. Nutritional screening: No deficits noted. jb4 Tuberculosis screening: No symptoms or risk factors identified. Fall Risk Total Diaz Fall Scale indicates No Risk (0-24 pts). Assessment: 21:15 General: Appears in no apparent distress. comfortable, Behavior is calm, cooperative, jb4 appropriate for age. Pain: Complains of pain in Right middle and ring finger, right first toe, back, and groind pain. Pain currently is 8 out of 10 on a pain scale. Quality of pain is described as tingling, numb. Neuro: Level of Consciousness is awake, alert, obeys commands, Oriented to person, place, time, situation. Cardiovascular: Patient's skin is warm and dry. Respiratory: Airway is patent Respiratory effort is even, unlabored, Respiratory pattern is regular, symmetrical. GI: Abdomen is round obese, Reports nausea, vomiting. : No signs and/or symptoms were reported regarding the genitourinary system. EENT: No signs and/or symptoms were reported regarding the EENT system. Derm: Skin is intact, Skin is pink, warm \T\ dry. Musculoskeletal: Circulation, motion, and sensation intact. Range of motion: intact in all extremities. 05/03 01:10 Reassessment: Robe Page notified. GI: Reports nausea, vomiting. ll3 Vital Signs: 05/02 21:06 BP 124 / 42; Pulse 80; Resp 19; Temp 98.6(O); Pulse Ox 100% on R/A; Weight 65.77 kg jb4 (R); Height 5 ft. 4 in. (162.56 cm) (R); Pain 8/10; 22:00 BP 110 / 43; Pulse 80; Resp 16; Pulse Ox 100% on R/A; jb4 05/03 00:58 BP 112 / 43; Pulse 79; Resp 16; Pulse Ox 99% on R/A; jb4 02:50 BP 109 / 46; Pulse 80; Resp 18; Pulse Ox 100% on R/A; ll3 05/02 21:06 Body Mass Index 24.89 (65.77 kg, 162.56 cm) jb4 ED Course: 05/02 21:06 Patient arrived in ED. mw2 21:06 Arm band placed on right wrist. jb4 21:12 Robe Lawrence PA is PHCP. cp 21:12 Nicho Ellison MD is Attending Physician. cp 21:35 Triage completed. jb4 22:55 XRAY Chest (1 view) In Process Unspecified. EDMS 22:59 CT Abd/Pelvis - Without Contrast In Process Unspecified. EDMS 23:00 US Extremity Venous W Compression Trevin In Process Unspecified. EDMS 23:02 UPPER EXTREMITY VENOUS UNILATE In Process Unspecified. EDMS 23:39 Inserted saline lock: 22 gauge in left ,using aseptic technique. shoulder Missed ll3 attempt(s): 22 gauge in left forearm. 05/03 01:16 Addison Bearden, JUAN R is Primary Nurse. jb4 02:51 Jarrod Leiva MD is Hospitalizing Provider. cp Administered Medications: 05/02 23:44 Drug: NS 0.9% 250 ml Route: IV; Rate: 250 ml/hr; Site: left upper arm; ll3 23:44 Drug: fentaNYL (PF) 25 mcg Route: IVP; Site: left upper arm; ll3 23:45 Drug: Pepcid (famotidine) 20 mg Route: IVP; Site: left upper arm; ll3 23:45 Drug: Zofran (Ondansetron) 4 mg Route: IVP; Site: left upper arm; ll3 05/03 01:48 Drug: Zofran (Ondansetron) 4 mg {Note: Left shoulder.} Route: IVP; Site: Other; jb4 02:33 Drug: Rocephin (cefTRIAXone) 1 grams Route: IV; Rate: calculated rate; Site: left upper ll3 arm; 02:39 Drug: morphine 2 mg Route: IVP; Infused Over: 4 mins; Site: left upper arm; ll3 Outcome: 02:53 Decision to Hospitalize by Provider. cp 08:41 Patient left the ED. aa5 Signatures: Dispatcher [employer] EDMS Lorie Colindres RN RN aa5 Page, Robe, PA Addison Esteban cp, RN RN jb4 Jamel Finnegan mw2 Judi Orozoc RN RN ll3 Corrections: (The following items were deleted from the chart) 05/02 23:00 23:00 In radiology for Extremity Venous Uni Ltd+US.ANA.MIKE. EDMS EDMS
--- NOTE | 2022-05-03 02:53 | EDPHYS ---
Physician Documentation [facility] Name: Latricia Cadet Age: 71 yrs Sex: Female : 1950 Arrival Date: 05/02/2022 Time: 21:06 Bed 7 Private MD: ED Physician Nicho Ellison HPI: 05/02 21:30 This 71 yrs old Female presents to ER via EMS with complaints of Abdominal Pain, Pain cp all Over. 21:30 The patient presents with abdominal pain in the lower abdomen. Onset: The cp symptoms/episode began/occurred today. The symptoms radiate to Associated signs and symptoms: Pertinent positives: diarrhea, Pertinent negatives: chest pain, constipation, fever, vomiting. Historical: - Allergies: 21:06 No Known Allergies; jb4 - Home Meds: 21:06 isosorbide mononitrate 30 mg Oral Tb24 1 tab once daily [Active]; calcitriol 0.25 mcg jb4 Oral cap 1 cap once daily [Active]; bumetanide 1 mg Oral tab 1 tab once daily [Active]; digoxin 125 mcg (0.125 mg) Oral tab 1 tab Every other day [Active]; doxazosin 4 mg Oral tab 1 tab twice a day [Active]; Lantus U-100 Insulin 100 unit/mL Sub-Q crtg 15 unit every morning [Active]; metoprolol tartrate 100 mg Oral tab 1 tab 2 times per day [Active]; pramipexole 1 mg Oral tab 1 tab daily [Active]; Tresiba U-100 Insulin 100 unit/mL subcutaneous soln 100 unit nightly [Active]; pantoprazole oral [Active]; - PMHx: 21:06 CHF; Diabetes - NIDDM; heart attack; Hypertension; insomnia; kidney disease; Rheumatoid jb4 Arthritis; Angina pectoris; COPD; Sleep apnea; - PSHx: 21:06 HD Fistula - Right arm; hysterectomy; pacemaker; jb4 ROS: 21:35 Constitutional: Negative for body aches, chills, fever, poor PO intake. cp 21:35 Eyes: Negative for injury, pain, redness, and discharge. cp 21:35 ENT: Negative for drainage from ear(s), ear pain, sore throat, difficulty swallowing, difficulty handling secretions. 21:35 Cardiovascular: Negative for chest pain, palpitations. 21:35 Respiratory: Negative for cough, shortness of breath, wheezing. 21:35 Abdomen/GI: Positive for abdominal pain, Negative for vomiting, constipation, black/tarry stool, rectal bleeding. 21:35 Neuro: Negative for altered mental status, dizziness, headache, weakness. 21:35 MS/extremity: Positive for pain, of the right hand, right foot and right leg. cp 21:35 Skin: Negative for rash. cp 21:35 All other systems are negative. Exam: 21:40 Constitutional: The patient appears in no acute distress, alert, awake, cp non-diaphoretic, non-toxic, well developed, well nourished. 21:40 Head/Face: Normocephalic, atraumatic. cp 21:40 Eyes: Periorbital structures: appear normal, Conjunctiva: normal, no exudate, no injection, Sclera: no appreciated abnormality, Lids and lashes: appear normal, bilaterally. 21:40 ENT: External ear(s): are unremarkable, Nose: is normal, Mouth: Lips: moist, Oral mucosa: moist, Posterior pharynx: Airway: no evidence of obstruction, patent. 21:40 Neck: ROM/movement: is normal, is supple, without pain, no range of motions limitations, no meningismus. 21:40 Chest/axilla: Inspection: normal. 21:40 Cardiovascular: Rate: normal, Rhythm: regular, Edema: ankle edema, that is mild, JVD: is not appreciated. 21:40 Respiratory: the patient does not display signs of respiratory distress, Respirations: normal, no use of accessory muscles, no retractions, labored breathing, is not present, Breath sounds: decreased breath sounds, that are mild, throughout, wheezing: is not appreciated. 21:40 Abdomen/GI: Inspection: abdomen appears normal, Bowel sounds: active, all quadrants, Palpation: soft, in all quadrants, moderate abdominal tenderness, in the right lower quadrant and left lower quadrant, rebound tenderness, is not appreciated, involuntary guarding, is not appreciated. 21:40 Back: pain, that is moderate. 21:40 Skin: cellulitis, is not appreciated, no rash present. 21:40 Neuro: Orientation: to person, place \T\ time. Mentation: is normal. Vital Signs: 21:06 BP 124 / 42; Pulse 80; Resp 19; Temp 98.6(O); Pulse Ox 100% on R/A; Weight 65.77 kg jb4 (R); Height 5 ft. 4 in. (162.56 cm) (R); Pain 8/10; 22:00 BP 110 / 43; Pulse 80; Resp 16; Pulse Ox 100% on R/A; jb4 05/03 00:58 BP 112 / 43; Pulse 79; Resp 16; Pulse Ox 99% on R/A; jb4 02:50 BP 109 / 46; Pulse 80; Resp 18; Pulse Ox 100% on R/A; ll3 05/02 21:06 Body Mass Index 24.89 (65.77 kg, 162.56 cm) jb4 MDM: 05/02 21:15 Patient medically screened. cp 22:00 Differential diagnosis: bowel obstruction, diverticulitis, gastritis, pancreatitis, cp Peptic Ulcer Disease, Pyelonephritis, Ureterolithiasis, urinary tract infection. 05/03 01:10 ED course: Patient currently taking Eliquis for history of right lower extremity DVT. cp 03:00 Physician consultation: Joanna Liang PA-C was contacted at 02:55, regarding admission, cp to the medical/surgical unit. patient's condition. 03:35 Data reviewed: vital signs, nurses notes, lab test result(s), radiologic studies, CT cp scan, plain films, ultrasound. 03:35 Counseling: I had a detailed discussion with the patient and/or guardian regarding: the cp historical points, exam findings, and any diagnostic results supporting the discharge/admit diagnosis, lab results, radiology results. 05/02 21:26 Order name: CBC with Diff; Complete Time: 00:25 cp 05/03 00:26 Interpretation: Normal except: RBC 2.93; HGB 8.5; HCT 24.2; MPV 6.9; EOSINOPHIL % 6.4; cp EOSA 0.6. 05/02 21: Order name: CMP; Complete Time: 00:25 cp 05/03 00:26 Interpretation: Normal except: NA 135; GLUC 232; BUN 65; CRE 5.49; GFR 8; AST 11; ALT < cp 10; ALK 131; TP 6.3; ALB 2.1; GLOB 4.2; A/G 0.5. 05/02 21: Order name: Lipase; Complete Time: 00:25 cp 05/02 23:40 Order name: Magnesium; Complete Time: 00:25 EDMS 05/03 01:42 Order name: Urine Microscopic Only; Complete Time: 03:32 cp 05/02 21:36 Order name: US Extremity Venous W Compression Trevin; Complete Time: 23:38 cp 05/03 02:19 Order name: Urine Dipstick-Ancillary; Complete Time: 02:20 EDMS 05/03 02:20 Interpretation: Normal except: UBLD 2+; UPROT 2+; UESTR 3+. 05/03 02:27 Order name: Blood Culture Adult (2) 05/03 02:27 Order name: Lactate w/ 2H reflex if indic.; Complete Time: 03:32 05/03 02:27 Order name: Procalcitonin 05/03 03:32 Order name: SARS-COV-2 Antigen Rapid sb4 05/03 04:14 Order name: SARS-COV-2 Antigen Rapid EDSD 05/03 07:40 Order name: Glucose, Ancillary Testing EDMS 05/02 21:26 Order name: IV Saline Lock; Complete Time: 23:45 cp 05/02 21:26 Order name: Labs collected and sent; Complete Time: 23:45 05/02 21:36 Order name: XRAY Chest (1 view) 05/02 21:54 Order name: CT Abd/Pelvis - Without Contrast 05/02 23:02 Order name: UPPER EXTREMITY VENOUS UNILATE; Complete Time: 23:38 EDMS 05/03 00:55 Order name: PO challenge; Complete Time: 02:33 cp 05/03 01:42 Order name: Urine Dipstick-Ancillary (obtain specimen); Complete Time: 02:32 cp 05/03 01:42 Order name: Cath; Complete Time: 02:32 cp Administered Medications: 05/02 23:44 Drug: NS 0.9% 250 ml Route: IV; Rate: 250 ml/hr; Site: left upper arm; ll3 23:44 Drug: fentaNYL (PF) 25 mcg Route: IVP; Site: left upper arm; ll3 23:45 Drug: Pepcid (famotidine) 20 mg Route: IVP; Site: left upper arm; ll3 23:45 Drug: Zofran (Ondansetron) 4 mg Route: IVP; Site: left upper arm; ll3 05/03 01:48 Drug: Zofran (Ondansetron) 4 mg {Note: Left shoulder.} Route: IVP; Site: Other; jb4 02:33 Drug: Rocephin (cefTRIAXone) 1 grams Route: IV; Rate: calculated rate; Site: left upper ll3 arm; 02:39 Drug: morphine 2 mg Route: IVP; Infused Over: 4 mins; Site: left upper arm; ll3 Disposition: 20:01 Co-signature as Attending Physician, Nicho Ellison MD. rn Disposition Summary: 05/03/22 02:53 Hospitalization Ordered Hospitalization Status: Inpatient Admission cp Provider: Jarrod Leiva cp Condition: Stable cp Problem: new cp Symptoms: have improved cp Bed/Room Type: Standard cp Location: Telemetry/MedSurg (Inpatient)(05/03/22 07:18) bd Room Assignment: [facility](05/03/22 07:18) bd Diagnosis - Nausea with vomiting, unspecified cp - UTI/ Urinary tract infection, site not specified cp - Chronic embolism and thrombosis of unspecified deep veins of right lower extremity cp - Abdominal pain, unspecified cp Forms: - Medication Reconciliation Form cp - SBAR form cp Signatures: Dispatcher [employer] EDMS Fauzia Hernandez Roman, MD MD rn Page, Corey, PA PA cp Garcia, Cindy, RN RN cg Bryson, James, RN RN jb4 Judi Orozco RN RN ll3 Joanna Liang PA-C PAValdemar sb4 Corrections: (The following items were deleted from the chart) 05/02 23:00 21:36 Extremity Venous Uni Ltd+US.RAD.BRZ ordered. EDMS EDMS 23:40 21:36 MAGNESIUM+C.LAB.BRZ ordered. EDMS EDMS 05/03 03:51 02:53 Telemetry/MedSurg (Inpatient) cp cg 03:51 02:53 cp cg 07:18 03:51 [facility] ER HOLD cg bd 07:18 03:51 ERHOLD- cg bd 05/04 05:33 12 21:35 All other systems are negative, cp cp
--- NOTE | 2022-05-03 03:04 | P.HP ---
Certification for Inpatient Patient admitted to: Inpatient With expected LOS: <2 Midnights Patient will require the following post-hospital care: None Practitioner: I am a practitioner with admitting privileges, knowledge of patient current condition, hospital course, and medical plan of care. 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 Her labs are significant for hemoglobin 8.5, hematocrit 24.2, BUN 65, Cr 5.49, glucose 232, urine positive for UTI. CT abdomen pelvis negative for acute findings. She was given several rounds of pain medications and antiemetics without relief of symptoms. She was also started on rocephin. ED provider wishes to admit patient for further management. Allergies No Known Allergies Allergy (Verified 01/02/22 02:33) Home medications list reviewed: Yes Home Medications: Apixaban [Eliquis *] 2.5 mg PO BID 04/14/20 Calcitrol [Rocaltrol*] 0.25 mcg PO DAILY 04/14/20 Furosemide [Lasix] 80 mg PO BID 04/14/20 Hydralazine HCl [Apresoline] 25 mg PO Q8H 04/14/20 Isosorbide Mononitrate [Isosorbide Mononitrate ER] 60 mg PO DAILY 04/14/20 Pramipexole [Mirapex*] 1 mg PO BEDTIME 04/14/20 Semaglutide [Ozempic] 0.25 mg SQ SEECOM 04/14/20 Aspirin 81 mg PO DAILY 11/27/21 Budesonide [Budesonide EC] 3 mg PO TID 11/27/21 Carvedilol [Coreg] 25 mg PO BID 11/27/21 Escitalopram [Lexapro*] 10 mg PO BEDTIME 11/27/21 Insulin Aspart [Novolog Flexpen] 10 unit SQ TIDWM 11/27/21 Insulin Glargine,Hum.rec.anlog [Lantus] 40 unit SQ DAILY 11/27/21 Pantoprazole [Protonix Tab*] 40 mg PO DAILY 11/27/21 Trazodone HCl 100 mg PO BEDTIME 11/27/21 Doxazosin Mesylate 4 mg PO BID 01/02/22 Gentamycin 1 tammie TOP DAILY 01/02/22 Melatonin 10 mg PO BEDTIME 01/02/22 Sevelamer Carbonate [Renvela*] 2 tab PO TIDWM 01/02/22 Nitrofuran Macro [Macrobid*] 100 mg PO BID cap 01/07/22 - Past Medical/Surgical History Diabetic: Yes -: Diabetes mellitus type 2-insulin dependent -: Rheumatoid arthritis -: Hypertension -: Hyperlipidemia -: Chronic congestive heart failure-unknown EF -: ESRD on HD -: CAD -: L ankle fusion -: hysterectomy -: Dialysis catheter placement and removal -: Cholecystectomy Psychosocial/ Personal History: Patient lives with her - Family History Family History: Reviewed- Non-Contributory - Social History Smoking Status: Never smoker Alcohol use: No CD- Drugs: No Caffeine use: No Place of Residence: Home Review of Systems Gastrointestinal: Nausea, Vomiting, Abdominal Pain Physical Examination - Vital Signs Temperature: 98.6 F Blood Pressure: 109/46 Pulse: 80 Respirations: 18 Pulse Ox (%): 100 (room air) - Physical Exam General: Alert, In no apparent distress HEENT: Atraumatic, PERRLA, EOMI, Sclerae nonicteric Neck: Supple, 2+ carotid pulse no bruit, No LAD, Without JVD or thyroid abnormality Respiratory: Clear to auscultation bilaterally, Normal air movement Cardiovascular: Regular rate/rhythm, Normal S1 S2 Gastrointestinal: Normal bowel sounds, No tenderness Musculoskeletal: No tenderness Integumentary: No rashes Neurological: Normal speech, Normal strength at 5/5 x4 extr, Normal tone, Normal affect - Studies Laboratory Data (last 24 hrs) 05/02/22 23:27: Sodium 135 L, Potassium 4.1, BUN 65 H, Creatinine 5.49 H*, Glucose 232 H, Magnesium 1.7, Total Bilirubin 0.2, AST 11 L, ALT < 10 L, Alkaline Phosphatase 131 H, Lipase 303 05/02/22 23:27: WBC 9.00, Hgb 8.5 L, Hct 24.2 L, Plt Count 367 12/12/22 21:36: Magnesium Cancelled Assessment and Plan - Problems (Diagnosis) (1) Diabetes Current Visit: No Status: Acute Qualifiers: Diabetes mellitus type: type 2 Diabetes mellitus usp insulin use: with termite exterminator helper use Diabetes mellitus complication status: with hyperglycemia Qualified Code(s): E11.65 - Type 2 diabetes mellitus with hyperglycemia; Z79.4 - exterminator helper (current) use of insulin (2) ESRD (end stage renal disease) Current Visit: Yes Status: Chronic (3) Anemia Current Visit: Yes Status: Acute Qualifiers: Anemia type: due to chronic kidney disease Chronic kidney disease stage: on chronic dialysis Qualified Code(s): N18.6 - End stage renal disease; D63.1 - Anemia in chronic kidney disease; Z99.2 - Dependence on renal dialysis (4) UTI (urinary tract infection) Current Visit: Yes Status: Acute Qualifiers: Urinary tract infection type: acute cystitis Hematuria presence: with hematuria Qualified Code(s): N30.01 - Acute cystitis with hematuria (5) COPD (chronic obstructive pulmonary disease) Current Visit: Yes Status: Chronic Qualifiers: COPD type: unspecified COPD Qualified Code(s): J44.9 - Chronic obstructive pulmonary disease, unspecified (6) Abdominal pain Current Visit: Yes Status: Acute Qualifiers: Abdominal location: lower abdomen, unspecified Qualified Code(s): R10.30 - Lower abdominal pain, unspecified - Plan Patient is admitted for observation. Continue rocephin for UTI. Previous culture grew klebsiella with sensitivity to rocephin. Follow current culture. Nephrology consulted for HD if necessary before discharge. Supportive measures with pain medications and antiemetics for abdominal pain, nausea, and vomiting. Monitor and replete electrolytes per protocol. Reconcile and continue home medications per protocol. Continue home eliquis. 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 Full code. Discharge Plan: Home Plan to discharge in: 24 Hours - Advance Directives Does patient have a Living Will: Yes Does patient have a Durable POA for Healthcare: No - Code Status/Comfort Care Code Status Assessed: Yes Code Status: Full Code Physician Review: Patient Assessed, Agree with Above Assessment and Plan Critical Care: No Time Spent Managing Pts Care (In Minutes): 50
[2022-05-03 03:25] LABS: Urine RBC >50 /HPF (None Seen); Urine WBC Clump Many /HPF (None Seen)
[2022-05-03 04:14] LABS: SARS-CoV-2 Antigen Rapid Res Negative (Negative)
[2022-05-03] MEDS ORDERED: METOCLOPRAMIDE 10 MG/2mL INJ IV PRN (05:17)
[2022-05-03] MEDS ORDERED: METOCLOPRAMIDE 10 MG/2mL INJ ONE (06:54)
[2022-05-03] MEDS ORDERED: ACETAMINOPHEN 325 MG TABLET PO PRN (07:19)
[2022-05-03] MEDS ORDERED: ONDANSETRON 4 MG/2 ML VIAL IV PRN (07:30)
[2022-05-03] MEDS: INSULIN -REGULAR HUMAN 50 UNIT/0.5 ML ML SQ SCH ×4 (07:30→21:00)
[2022-05-03] MEDS: MORPHINE 2 MG/ML SYR IV PRN (07:30)
[2022-05-03] MEDS ORDERED: INSULIN -REGULAR HUMAN 50 UNIT/0.5 ML ML ONE (07:37)
[2022-05-03] MEDS ORDERED: INFLUENZA VACCINE (for 6+ mo) 0.5 ML DOSE IMVAC ONE (08:00)
[2022-05-03] MEDS: APIXABAN 2.5 MG TABLET PO SCH ×2 (09:26→22:14)
[2022-05-03] MEDS: CEFTRIAXONE 1,000 MG in NA CHLORIDE 0.9% 50 ML IVPB SCH (09:26)
--- NOTE | 2022-05-03 17:07 | RAD REPORT ---
EXAM DESCRIPTION: CT - Abdomen Pelvis Wo Contrast - 05/02/2022 10:58 pm CLINICAL HISTORY: 71 years Female abdominal pain COMPARISON: None TECHNIQUE: Images were obtained in axial, sagittal, and coronal planes. No intravenous contrast was administered. This exam was performed according to our departmental dose-optimization program which includes use of Automated Exposure Control, adjustment of the mA and/or kV according to patient size and/or use of i terative reconstruction technique. FINDINGS: No abnormality involving the liver, spleen, and adrenal glands bilaterally. Atrophic barak[place] involving the pancreas. Prior cholecystectomy. Extensive vascular calcifications. No obstructing renal or ureteral calculi bilaterally. No hydronephrosis bilaterally. Unremarkable esequiel dder. No dilatation of abdominal aorta. No adenopathy or abnormal fluid collections seen. Appendix not well identified however no secondary signs for appendicitis. No bowel obstruction, perfo ration, or inflammation. Enlarged heart. Chronic changes lower lungs bilaterally. No acute osseous abnormality. Levoscoliosis thoracolumbar spine. Partial anterior fusion L1-2 and L2- 3 levels. IMPRESSION: No acute intra-abdominal abnormality. Extensive vascular calcifications. Electronically signed by: Nicole Arenas MD 05/02/2022 11:31 PM CYBER SECURITY ADMINISTRATOR Due to temporary technical issues with the PACS/Fluency reporting system, reports are being signed by the in house radiologists without review as a courtesy to insure prompt reporting. The interpreting radiologist is fully responsible for the content of the report.
--- NOTE | 2022-05-03 17:10 | RAD REPORT ---
EXAM DESCRIPTION: RAD - Chest Single View - 05/02/2022 10:53 pm CLINICAL HISTORY: SOB TECHNIQUE: Frontal view of the chest. COMPARISON: No relevant prior studies available. FINDINGS: Lungs: Unremarkable. No consolidation. Pleural space: Unremarkable. No pneumothorax. Heart: The cardiac silhouette is enlarged, in part accentuated by portable technique. Mediastinum: Unremarkable. Bones/joints: Unremarkable. Vasculature: Left arm vascular stents. Thoracic aortic atherosclerosis. Tubes, lines and devices: Left chest wall triple lead pacer. Right internal jugular approach tunn eled catheter in place. IMPRESSION: No acute disease. Electronically signed by: Meaghan Keita MD 05/02/2022 11:20 PM POTATO GRADER Due to temporary technical issues with the PACS/Fluency reporting system, reports are being signed by the in house radiologists without review as a courtesy to insure prompt reporting. The interpreting radiologist is fully responsible for the content of the report.
--- NOTE | 2022-05-03 17:33 | P.PN ---
Date of Service: 05/03/22 Patient seen and examined. She was comfortable after a dose of IV morphine. Diagnosis: Abdominal pain UTI ESRD on hemodialysis. Anemia of chronic kidney disease Plan: Continue current antibiotics Nephrology consult for hemodialysis. Follow urine culture result Symptomatic management for abdominal pain.
[2022-05-03 20:49] LABS: Specific Gravity 1.008 (1.005-1.030); Urine Bilirubin NEGATIVE (Negative); Urine Blood 2+ (Negative); Urine Clarity Extremely Turbid (Clear); Urine Color Light-Orange (Yellow); Urine Glucose TRACE (Negative); Urine Mucus Slight /HPF (None Seen); Urine Protein 1+ (Negative); Urine RBC 21-50 /HPF (None Seen); Urine Urobilinogen Normal (Normal); Urine WBC Clump Many /HPF (None Seen); Urine pH 5.5 (5.0-7.0)
[2022-05-03] MEDS ORDERED: HOME MED 1 EA UNK (Rivastigmine Tartrate [Rivastigmine] 3 MG Capsule) PO SCH (21:00)
[2022-05-03] MEDS: ESCITALOPRAM 20 MG TAB PO SCH (22:14)
[2022-05-03] MEDS: RIVASTIGMINE TARTRATE 1.5 MG PO SCH (22:15)
[2022-05-03] MEDS: PRAMIPEXOLE 1 MG TAB PO SCH (22:15)
[2022-05-04 04:09] LABS: Absolute Lymphocytes (CBC) 1.5 K/uL (0.7-4.9); Hematocrit 23.4 % (36.0-45.0); Lymphocytes % 20.3 % (15.3-44.8); MCV 83.3 fL (80-100); MPV 7.1 fL (7.6-11.3); RBC Red Blood Cell Count 2.81 M/uL (3.86-4.86)
[2022-05-04 04:31] LABS: Magnesium 1.8 mg/dL (1.6-2.4); Phosphorus 6.6 mg/dL (2.5-4.9); Potassium 4.3 mmol/L (3.5-5.1); Thyroid Stimulating Hormone 1.63 uIU/mL (0.358-3.740)
[2022-05-04] MEDS ORDERED: MAGNESIUM SULFATE 1 gm IVPB 1 GM/100 ML BAG IV ONE (07:00)
[2022-05-04] MEDS: INSULIN -REGULAR HUMAN 50 UNIT/0.5 ML ML SQ SCH ×4 (07:30→20:48)
[2022-05-04] MEDS: SEVELAMER CARBONATE 800 MG TABLET PO SCH ×3 (08:42→17:40)
[2022-05-04] MEDS: PANTOPRAZOLE 40MG TABLET PO SCH (08:42)
[2022-05-04] MEDS: APIXABAN 2.5 MG TABLET PO SCH ×2 (08:43→20:47)
[2022-05-04] MEDS: FUROSEMIDE 40 MG TABLET PO SCH (08:43)
[2022-05-04] MEDS: CEFTRIAXONE 1,000 MG in NA CHLORIDE 0.9% 50 ML IVPB SCH (08:43)
[2022-05-04] MEDS: RIVASTIGMINE TARTRATE 1.5 MG PO SCH ×2 (09:00→20:47)
[2022-05-04] MEDS ORDERED: HOME MED 1 EA UNK (Furosemide [Lasix] 80 MG Tablet) PO SCH (09:00)
[2022-05-04] MEDS: MORPHINE 2 MG/ML SYR IV PRN ×2 (10:33→20:50)
--- NOTE | 2022-05-04 14:41 | P.CNS ---
Chief Complaint: ESRD, Abdominal Pain, UTI Allergies No Known Allergies Allergy (Verified 01/02/22 02:33) Home Medications: Furosemide [Lasix] 80 mg PO DAILY 04/14/20 Isosorbide Mononitrate [Isosorbide Mononitrate ER] 60 mg PO DAILY 04/14/20 Pramipexole [Mirapex*] 1 mg PO BEDTIME 04/14/20 Escitalopram [Lexapro*] 10 mg PO BEDTIME 11/27/21 Insulin Glargine,Hum.rec.anlog [Lantus] 40 unit SQ DAILY PRN 11/27/21 Pantoprazole [Protonix Tab*] 40 mg PO DAILY 11/27/21 Doxazosin Mesylate 4 mg PO DAILY 01/02/22 Sevelamer Carbonate [Renvela*] 2 tab PO TIDWM 01/02/22 Rivastigmine Tartrate [Rivastigmine] 1 cap PO BID 05/03/22 - Past Medical/Surgical History Diabetic: Yes -: Diabetes mellitus type 2-insulin dependent -: Rheumatoid arthritis -: Hypertension -: Hyperlipidemia -: Chronic congestive heart failure-unknown EF -: ESRD on HD -: CAD -: L ankle fusion -: hysterectomy -: Dialysis catheter placement and removal -: Cholecystectomy Psychosocial/ Personal History: Patient lives with her - Social History Smoking Status: Unknown if ever smoked Alcohol use: No CD- Drugs: No Caffeine use: No Place of Residence: Home Physical Examination Temp Pulse Resp BP Pulse Ox 96.8 F 80 16 144/61 H 100 05/04/22 12:00 05/04/22 12:00 05/04/22 12:00 05/04/22 12:00 05/04/22 12:00
--- NOTE | 2022-05-04 16:48 | P.PN ---
Subjective Date of Service: 05/04/22 Chief Complaint: ESRD, Abdominal Pain, UTI Patient has no new complaint. She denies shortness of breath. She denies any abdominal pain. Noted drop in her hemoglobin from yesterday. Physical Examination - Vital Signs Temperature: 96.8 F Blood Pressure: 144/61 Pulse: 80 Respirations: 16 Pulse Ox (%): 100 - Studies Microbiology Data (last 24 hrs): 05/03/22 02:36 Blood - Blood Anaerobic Blood Culture - Final 05/03/22 02:36 Blood - Blood Anaerobic Blood Culture - Final Assessment And Plan - Current Problems (Diagnosis) (1) Abdominal pain Current Visit: Yes Status: Acute Qualifiers: Abdominal location: lower abdomen, unspecified Qualified Code(s): R10.30 - Lower abdominal pain, unspecified (2) Anemia Current Visit: Yes Status: Acute Qualifiers: Anemia type: due to chronic kidney disease Chronic kidney disease stage: on chronic dialysis Qualified Code(s): N18.6 - End stage renal disease; D63.1 - Anemia in chronic kidney disease; Z99.2 - Dependence on renal dialysis (3) UTI (urinary tract infection) Current Visit: Yes Status: Acute Qualifiers: Urinary tract infection type: acute cystitis Hematuria presence: with hematuria Qualified Code(s): N30.01 - Acute cystitis with hematuria (4) ESRD (end stage renal disease) Current Visit: Yes Status: Chronic (5) Diabetes Current Visit: No Status: Acute Qualifiers: Diabetes mellitus type: type 2 Diabetes mellitus snf insulin use: with local company intermodal truck driver use Diabetes mellitus complication status: with hyperglycemia Qualified Code(s): E11.65 - Type 2 diabetes mellitus with hyperglycemia; Z79.4 - remote computer terminal operator (current) use of insulin (6) Lower extremity deep venous thrombosis Current Visit: Yes Status: Acute - Plan Physical Exam General: Alert, In no apparent distress HEENT: Sclerae nonicteric Neck: Supple, no elevated JVD. Respiratory: Clear to auscultation bilaterally, Normal air movement Cardiovascular: Regular rate/rhythm, Normal S1 S2 Gastrointestinal: Normal bowel sounds, No tenderness Musculoskeletal: No tenderness Integumentary: No rashes Neurological: No focal motor deficit. Plan: The etiology of abdominal pain is unclear. Could be secondary to UTI. Urine culture: Mixed growth. Follow final result. Continue IV Rocephin. Patient started on renally dose Eliquis for DVT of lower extremity. Noted drop in hemoglobin from yesterday. No active bleeding, no bloody stool or melena. Check stool for occult blood. Continue Eliquis and monitor H&H. Nephrology seen patient for hemodialysis. Patient scheduled for hemodialysis today. Insulin sliding scale for glucose management.
[2022-05-04 17:57] LABS: Hematocrit 24.7 % (36.0-45.0)
[2022-05-04] MEDS: PRAMIPEXOLE 1 MG TAB PO SCH (20:47)
[2022-05-04] MEDS: ESCITALOPRAM 20 MG TAB PO SCH (20:47)
[2022-05-04 22:49] LABS: Specific Gravity 1.007 (1.005-1.030); Urine Bacteria <20 /HPF (<20); Urine Bilirubin NEGATIVE (Negative); Urine Blood 1+ (Negative); Urine Clarity Turbid (Clear); Urine Color Colorless (Yellow); Urine Glucose NEGATIVE (Negative); Urine Mucus Slight /HPF (None Seen); Urine Protein 1+ (Negative); Urine Urobilinogen Normal (Normal); Urine WBC Clump Moderate /HPF (None Seen); Urine pH 5.5 (5.0-7.0)
[2022-05-05 04:49] LABS: Hematocrit 25.4 % (36.0-45.0); Lymphocytes % 13.1 % (15.3-44.8); MCV 82.9 fL (80-100); MPV 6.8 fL (7.6-11.3); RBC Red Blood Cell Count 3.07 M/uL (3.86-4.86)
[2022-05-05 05:16] LABS: Potassium 4.3 mmol/L (3.5-5.1)
[2022-05-05] MEDS: INSULIN -REGULAR HUMAN 50 UNIT/0.5 ML ML SQ SCH ×4 (07:30→21:00)
[2022-05-05] MEDS ORDERED: Meropenem 500 MG in NA CHLORIDE 0.9% 100 ML IV ONE (08:00)
[2022-05-05] MEDS: RIVASTIGMINE TARTRATE 1.5 MG PO SCH ×3 (09:00→22:32)
[2022-05-05] MEDS: FUROSEMIDE 40 MG TABLET PO SCH (09:12)
[2022-05-05] MEDS: SEVELAMER CARBONATE 800 MG TABLET PO SCH ×3 (09:13→17:36)
[2022-05-05] MEDS: APIXABAN 2.5 MG TABLET PO SCH ×2 (09:13→22:32)
[2022-05-05] MEDS: PANTOPRAZOLE 40MG TABLET PO SCH (09:13)
[2022-05-05] MEDS: DOXAZOSIN 4 MG TAB PO SCH (09:14)
[2022-05-05] MEDS: MORPHINE 2 MG/ML SYR IV PRN (11:24)
--- NOTE | 2022-05-05 15:49 | P.PN ---
Subjective Date of Service: 05/05/22 Chief Complaint: ESRD, Abdominal Pain, UTI Patient has no new complaint. She denies shortness of breath. She denies any complaint. Physical Examination - Vital Signs Temperature: 96.5 F Blood Pressure: 139/56 Pulse: 80 Respirations: 16 Pulse Ox (%): 96 - Studies Microbiology Data (last 24 hrs): 05/03/22 02:16 Clean Catch Urine [place] Count - Final >100,000 CFU/ML. 05/03/22 02:16 Clean Catch Urine - Final Klebsiella Pneumoniae Esbl Assessment And Plan - Current Problems (Diagnosis) (1) Abdominal pain Current Visit: Yes Status: Acute Qualifiers: Abdominal location: lower abdomen, unspecified Qualified Code(s): R10.30 - Lower abdominal pain, unspecified (2) Anemia Current Visit: Yes Status: Acute Qualifiers: Anemia type: due to chronic kidney disease Chronic kidney disease stage: on chronic dialysis Qualified Code(s): N18.6 - End stage renal disease; D63.1 - Anemia in chronic kidney disease; Z99.2 - Dependence on renal dialysis (3) UTI (urinary tract infection) Current Visit: Yes Status: Acute Qualifiers: Urinary tract infection type: acute cystitis Hematuria presence: with hematuria Qualified Code(s): N30.01 - Acute cystitis with hematuria (4) ESRD (end stage renal disease) Current Visit: Yes Status: Chronic (5) Diabetes Current Visit: No Status: Acute Qualifiers: Diabetes mellitus type: type 2 Diabetes mellitus termite renewal inspector insulin use: with nursing home use Diabetes mellitus complication status: with hyperglycemia Qualified Code(s): E11.65 - Type 2 diabetes mellitus with hyperglycemia; Z79.4 - exterminator (current) use of insulin (6) Lower extremity deep venous thrombosis Current Visit: Yes Status: Acute - Plan Physical Exam General: Alert, In no apparent distress Neck: Supple, no elevated JVD. Respiratory: Clear to auscultation bilaterally, Normal air movement Cardiovascular: Regular rate/rhythm, Normal S1 S2 Gastrointestinal: Normal bowel sounds, No tenderness Musculoskeletal: No tenderness Integumentary: No rashes Neurological: No focal motor deficit. Plan: The etiology of abdominal pain is unclear. Could be secondary to UTI. Abdominal pain resolved. Urine culture: ESBL Klebsiella pneumonia sensitive to only meropenem Antibiotics changed to IV meropenem. Patient will need 7 to 10 days of IV meropenem. Considering midline for outpatient IV access if okay with her home health. Patient started on renally dose Eliquis for DVT of lower extremity. Hemoglobin is stable. No active bleeding, no bloody stool or melena. Continue Eliquis and monitor H&H. Nephrology seen patient for hemodialysis. Hemodialysis incomplete yesterday due to malfunctioning dialysis access. Surgery Dr. Long contacted recommend trial of Cathflo infusion and if it does not work, we will proceed with catheter exchange. Insulin sliding scale for glucose management.
[2022-05-05] MEDS ORDERED: ALTEPLASE 2 MG/VIAL IV SCH (16:00)
[2022-05-05] MEDS ORDERED: WATER FOR INJ,STERILE 10 ML IV SCH (16:00)
[2022-05-05] MEDS ORDERED: Meropenem 500 MG in NA CHLORIDE 0.9% 100 ML IV SCH (17:00)
[2022-05-05] MEDS: PRAMIPEXOLE 1 MG TAB PO SCH (22:31)
[2022-05-05] MEDS: ESCITALOPRAM 20 MG TAB PO SCH (22:32)
[2022-05-06] MEDS: MORPHINE 2 MG/ML SYR IV PRN (03:44)
[2022-05-06] MEDS: INSULIN -REGULAR HUMAN 50 UNIT/0.5 ML ML SQ SCH ×4 (07:30→21:00)
[2022-05-06] MEDS: SEVELAMER CARBONATE 800 MG TABLET PO SCH ×3 (08:06→17:14)
[2022-05-06] MEDS: FUROSEMIDE 40 MG TABLET PO SCH (08:06)
[2022-05-06] MEDS: APIXABAN 2.5 MG TABLET PO SCH ×2 (08:06→21:00)
[2022-05-06] MEDS: RIVASTIGMINE TARTRATE 1.5 MG PO SCH ×2 (08:06→21:00)
[2022-05-06] MEDS: PANTOPRAZOLE 40MG TABLET PO SCH (08:06)
[2022-05-06] MEDS: DOXAZOSIN 4 MG TAB PO SCH (08:07)
[2022-05-06] MEDS ORDERED: ERTAPENEM SODIUM 1 GM VIAL IVPB ONE (11:43)
[2022-05-06] MEDS ORDERED: ERTAPENEM NA 1 GM in NA CHLORIDE 0.9% 100 ML IVPB ONE (12:00)
--- NOTE | 2022-05-06 15:01 | CON ---
History Of Present Illness: This is a 71-year-old female I was consulted for urinary tract infection secondary to ESBL Klebsiella pneumoniae. Patient is currently being treated with Invanz. Patient d enies any headache, nausea, vomiting, chest pain, abdominal pain, constipation, or diarrhea. Has sig nificant past medical history of end-stage renal disease for more than 2 years, congestive heart fail ure, hypertension, hyperlipidemia. Past Medical History: As per HPI. Social History: Nonsmoker. Nondrinker. Family History: Noncontributory. Medication: Invanz. See MAR for other medications. Allergies: NO KNOWN DRUG ALLERGIES. Review of Systems: A 10-point review was performed. Physical Examination: General: This is a 71-year-old female, lying in bed, not in any acute cardiopulmonary distress. Vital Signs: Temperature 97, pulse 79, respirations 16, blood pressure 136/56. HEENT: Unremarkable. Neck: Supple. Lungs: Basal crackles. Heart: S1, S2. Regular. Abdomen: Soft, nontender. Bowel sounds present. Extremity: No edema. Laboratory Data: WBC 7.3, hemoglobin 8.5, platelets 401. Chemistry shows BUN of 56, creatinine 5.2. Albumin level is 2.1. Assessment And Plan: Urosepsis secondary to extended-spectrum beta-lactamases Klebsiella pneumoniae in a patient with the end-stage renal disease and diabetes mellitus, anemia of chronic disease, diabe tic neuropathy, moderate protein-calorie malnourishment, coronary artery disease. Continue current t reatment for 7 days. We will follow patient as needed. NF/MODL Voice ID: [id number] Report ID: [id number]
--- NOTE | 2022-05-06 16:18 | P.PN ---
Subjective Date of Service: 05/06/22 Chief Complaint: ESRD, Abdominal Pain, UTI Patient denies any complaint She requests to go home. Physical Examination - Vital Signs Temperature: 96.9 F Blood Pressure: 134/50 Pulse: 80 Respirations: 16 Pulse Ox (%): 99 Assessment And Plan - Current Problems (Diagnosis) (1) Abdominal pain Current Visit: Yes Status: Acute Qualifiers: Abdominal location: lower abdomen, unspecified Qualified Code(s): R10.30 - Lower abdominal pain, unspecified (2) Anemia Current Visit: Yes Status: Acute Qualifiers: Anemia type: due to chronic kidney disease Chronic kidney disease stage: on chronic dialysis Qualified Code(s): N18.6 - End stage renal disease; D63.1 - Anemia in chronic kidney disease; Z99.2 - Dependence on renal dialysis (3) UTI (urinary tract infection) Current Visit: Yes Status: Acute Qualifiers: Urinary tract infection type: acute cystitis Hematuria presence: with hematuria Qualified Code(s): N30.01 - Acute cystitis with hematuria (4) ESRD (end stage renal disease) Current Visit: Yes Status: Chronic (5) Diabetes Current Visit: No Status: Acute Qualifiers: Diabetes mellitus type: type 2 Diabetes mellitus penitentiary insulin use: with penitentiary use Diabetes mellitus complication status: with hyperglycemia Qualified Code(s): E11.65 - Type 2 diabetes mellitus with hyperglycemia; Z79.4 - assisted (current) use of insulin (6) Lower extremity deep venous thrombosis Current Visit: Yes Status: Acute - Plan Physical Exam General: Alert, In no apparent distress Neck: Supple, no elevated JVD. Respiratory: Clear to auscultation bilaterally, Normal air movement Cardiovascular: Regular rate/rhythm, Normal S1 S2 Gastrointestinal: Normal bowel sounds, No tenderness Musculoskeletal: No tenderness Integumentary: No rashes Neurological: No focal motor deficit. Plan: The etiology of abdominal pain is unclear. Likely secondary to UTI. Abdominal pain resolved. Urine culture: ESBL Klebsiella pneumonia sensitive to only meropenem Antibiotics changed to IV meropenem. Seen by infectious disease Dr. Montelongo who recommended 7 days of meropenem or ertapenem. Place midline for outpatient IV antibiotic. Patient started on renally dose Eliquis for DVT of lower extremity. Hemoglobin is stable. No active bleeding, no bloody stool or melena. Continue Eliquis. Nephrology seen patient for hemodialysis. Hemodialysis incomplete yesterday due to malfunctioning dialysis access. Surgery Dr. Long contacted recommend trial of Cathflo infusion. Trial of Cathflo infusion was successful. Patient underwent hemodialysis successfully yesterday. Insulin sliding scale for glucose management. Social service consulted to assist with arrangement for outpatient IV ertapenem. Physician Review: Patient Assessed, Agree with Above Assessment and Plan
[2022-05-06] MEDS ORDERED: INFLUENZA VACCINE (for 6+ mo) 0.5 ML DOSE IMVAC ONE (20:00)
[2022-05-06] MEDS: ESCITALOPRAM 20 MG TAB PO SCH (20:59)
[2022-05-06] MEDS: PRAMIPEXOLE 1 MG TAB PO SCH (21:00)
[2022-05-07] MEDS: INSULIN -REGULAR HUMAN 50 UNIT/0.5 ML ML SQ SCH ×4 (07:30→21:00)
--- NOTE | 2022-05-07 09:17 | P.PN ---
Subjective Date of Service: 05/07/22 Chief Complaint: ESRD, Abdominal Pain, UTI Physical Examination - Vital Signs Temperature: 96.9 F Blood Pressure: 102/46 Pulse: 79 Respirations: 18 Pulse Ox (%): 97 Assessment And Plan Physician Review: Patient Assessed, Agree with Above Assessment and Plan
[2022-05-07] MEDS: DOXAZOSIN 4 MG TAB PO SCH (09:33)
[2022-05-07] MEDS: FUROSEMIDE 40 MG TABLET PO SCH (09:34)
[2022-05-07] MEDS: SEVELAMER CARBONATE 800 MG TABLET PO SCH ×3 (09:34→16:48)
[2022-05-07] MEDS: RIVASTIGMINE TARTRATE 1.5 MG PO SCH ×2 (09:34→22:34)
[2022-05-07] MEDS: PANTOPRAZOLE 40MG TABLET PO SCH (09:34)
[2022-05-07] MEDS: APIXABAN 2.5 MG TABLET PO SCH ×2 (09:35→22:34)
[2022-05-07] MEDS: MORPHINE 2 MG/ML SYR IV PRN (12:07)
--- NOTE | 2022-05-07 18:45 | P.PN ---
Subjective Date of Service: 05/07/22 Chief Complaint: ESRD, Abdominal Pain, UTI Patient has no new complaint. She is tolerating a diet. No recorded fever. Physical Examination - Vital Signs Temperature: 96.8 F Blood Pressure: 118/56 Pulse: 79 Respirations: 18 Pulse Ox (%): 98 Assessment And Plan - Current Problems (Diagnosis) (1) Abdominal pain Current Visit: Yes Status: Acute Qualifiers: Abdominal location: lower abdomen, unspecified Qualified Code(s): R10.30 - Lower abdominal pain, unspecified (2) Anemia Current Visit: Yes Status: Acute Qualifiers: Anemia type: due to chronic kidney disease Chronic kidney disease stage: on chronic dialysis Qualified Code(s): N18.6 - End stage renal disease; D63.1 - Anemia in chronic kidney disease; Z99.2 - Dependence on renal dialysis (3) UTI (urinary tract infection) Current Visit: Yes Status: Acute Qualifiers: Urinary tract infection type: acute cystitis Hematuria presence: with hematuria Qualified Code(s): N30.01 - Acute cystitis with hematuria (4) ESRD (end stage renal disease) Current Visit: Yes Status: Chronic (5) Diabetes Current Visit: No Status: Acute Qualifiers: Diabetes mellitus type: type 2 Diabetes mellitus [facility] insulin use: with termite technician use Diabetes mellitus complication status: with hyperglycemia Qualified Code(s): E11.65 - Type 2 diabetes mellitus with hyperglycemia; Z79.4 - termite technician (current) use of insulin (6) Lower extremity deep venous thrombosis Current Visit: Yes Status: Acute - Plan Physical Exam General: Alert, In no apparent distress Neck: Supple, no elevated JVD. Respiratory: Clear to auscultation bilaterally, Normal air movement Cardiovascular: Regular rate/rhythm, Normal S1 S2 Gastrointestinal: Normal bowel sounds, No tenderness Musculoskeletal: No tenderness Integumentary: No rashes Neurological: No focal motor deficit. Plan: The etiology of abdominal pain is unclear. Likely secondary to UTI. Abdominal pain resolved. Urine culture: ESBL Klebsiella pneumonia sensitive to only meropenem Antibiotics changed to IV meropenem. Seen by infectious disease Dr. Montelongo who recommended 7 days of meropenem or ertapenem. Awaiting midline placement for outpatient IV antibiotic. Patient started on renally dose Eliquis for DVT of lower extremity. Hemoglobin is stable. No active bleeding, no bloody stool or melena. Continue Eliquis. Nephrology seen patient for hemodialysis. Hemodialysis incomplete yesterday due to malfunctioning dialysis access. Surgery Dr. Long contacted recommend trial of Cathflo infusion. Trial of Cathflo infusion was successful. Patient underwent hemodialysis successfully yesterday. Further hemodialysis per nephrology. Insulin sliding scale for glucose management. Social service consulted to assist with arrangement for outpatient IV ertapenem. Physician Review: Patient Assessed, Agree with Above Assessment and Plan
[2022-05-07 22:31] VITALS: BMI 23.1
[2022-05-07] MEDS: PRAMIPEXOLE 1 MG TAB PO SCH (22:34)
[2022-05-07] MEDS: ESCITALOPRAM 20 MG TAB PO SCH (22:34)
[2022-05-08] MEDS: MORPHINE 2 MG/ML SYR IV PRN (01:36)
[2022-05-08] MEDS: INSULIN -REGULAR HUMAN 50 UNIT/0.5 ML ML SQ SCH ×2 (07:30→11:30)
[2022-05-08] MEDS: RIVASTIGMINE TARTRATE 1.5 MG PO SCH (08:41)
[2022-05-08] MEDS: APIXABAN 2.5 MG TABLET PO SCH (08:42)
[2022-05-08] MEDS: PANTOPRAZOLE 40MG TABLET PO SCH (08:42)
[2022-05-08] MEDS: FUROSEMIDE 40 MG TABLET PO SCH (08:42)
[2022-05-08] MEDS: DOXAZOSIN 4 MG TAB PO SCH (08:42)
[2022-05-08] MEDS: SEVELAMER CARBONATE 800 MG TABLET PO SCH ×2 (08:43→12:00)
[2022-05-08] MEDS ORDERED: ERTAPENEM SODIUM 1 GM VIAL IVPB ONE (09:41)
--- NOTE | 2022-05-08 09:45 | P.DS ---
Admission Date: 05/03/22 Discharge Date: 05/08/22 Disposition: ROUTINE DISCHARGE Discharge Condition: FAIR Reason for Admission: ESRD, Abdominal Pain, UTI - Problems (1) Abdominal pain Current Visit: Yes Status: Acute Qualifiers: Abdominal location: lower abdomen, unspecified Qualified Code(s): R10.30 - Lower abdominal pain, unspecified (2) Anemia Current Visit: Yes Status: Acute Qualifiers: Anemia type: due to chronic kidney disease Chronic kidney disease stage: on chronic dialysis Qualified Code(s): N18.6 - End stage renal disease; D63.1 - Anemia in chronic kidney disease; Z99.2 - Dependence on renal dialysis (3) UTI (urinary tract infection) Current Visit: Yes Status: Acute Qualifiers: Urinary tract infection type: acute cystitis Hematuria presence: with hematuria Qualified Code(s): N30.01 - Acute cystitis with hematuria (4) ESRD (end stage renal disease) Current Visit: Yes Status: Chronic (5) Diabetes Current Visit: No Status: Acute Qualifiers: Diabetes mellitus type: type 2 Diabetes mellitus prison insulin use: with prison use Diabetes mellitus complication status: with hyperglycemia Qualified Code(s): E11.65 - Type 2 diabetes mellitus with hyperglycemia; Z79.4 - care home (current) use of insulin (6) Lower extremity deep venous thrombosis Current Visit: Yes Status: Acute Brief History of Present Illness: Patient is a 71-year-old female with history of 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 Her labs are significant for hemoglobin 8.5, hematocrit 24.2, BUN 65, Cr 5.49, glucose 232, urine positive for UTI. CT abdomen pelvis negative for acute findings. She was given several rounds of pain medications and antiemetics without relief of symptoms. She was also started on rocephin and admitted for further management. Hospital Course: The etiology of abdominal pain is unclear. Likely secondary to UTI. Abdominal pain resolved with antibiotics. Urine culture: ESBL Klebsiella pneumonia sensitive to only meropenem Patient treated with IV meropenem Seen by infectious disease Dr. Montelongo who recommended 7 days of meropenem or ertapenem. Patient has ESRD on hemodialysis via right IJ permacath. Midline placed for outpatient IV antibiotics. Patient to complete 5 more days of treatment with IV Invanz. Venous Doppler of lower extremity demonstrated right popliteal vein DVT-acuity unknown. Patient started on renally dose Eliquis for DVT of lower extremity. Hemoglobin hemoglobin monitored was stable. No active bleeding, no bloody stool or melena. Nephrology saw patient for hemodialysis. Patient had malfunctioning dialysis access which was successfully addressed with Cathflo. She underwent multiple sessions of hemodialysis. Outpatient IV antibiotics has been arranged. Patient is deemed clinically stable for discharge. Vital Signs/Physical Exam: Temp Pulse Resp BP Pulse Ox 96.8 F 79 18 101/49 L 98 05/08/22 08:00 05/08/22 08:42 05/08/22 08:00 05/08/22 08:42 05/08/22 08:00 General: Alert, In no apparent distress, Oriented x3 HEENT: Mucous membr. moist/pink Neck: JVD not distended Respiratory: Clear to auscultation bilaterally, Normal air movement Cardiovascular: Regular rate/rhythm, Normal S1 S2 Gastrointestinal: Soft and benign, Non-distended, No tenderness Musculoskeletal: No swelling Integumentary: No cyanosis Neurological: Normal strength at 5/5 x4 extr Laboratory Data at Discharge: WBC 7.30 K/uL (4.3-10.9) 05/05/22 04:02 Hgb 8.5 g/dL (12.0-15.0) L 05/05/22 04:02 Hct 25.4 % (36.0-45.0) L 05/05/22 04:02 Plt Count 401 K/uL (152-406) 05/05/22 04:02 Sodium 138 mmol/L (136-145) 05/07/22 09:27 Potassium 4.0 mmol/L (3.5-5.1) 05/07/22 09:27 BUN 30 mg/dL (7-18) H 05/07/22 09:27 Creatinine 4.00 mg/dL (0.55-1.02) H 05/07/22 09:27 Glucose 106 mg/dL (74-106) 05/07/22 09:27 Phosphorus 6.6 mg/dL (2.5-4.9) H 05/04/22 03:04 Magnesium 2.0 mg/dL (1.6-2.4) 05/07/22 09:27 Total Bilirubin 0.2 mg/dL (0.2-1.0) 05/02/22 23:27 AST 11 U/L (15-37) L 05/02/22 23:27 ALT < 10 U/L (13-56) L 05/02/22 23:27 Alkaline Phosphatase 131 U/L (45-117) H 05/02/22 23:27 Triglycerides 49 mg/dL (<150) 05/04/22 03:04 Cholesterol 107 mg/dL (<200) 05/04/22 03:04 HDL Cholesterol 43 mg/dL (40-60) 05/04/22 03:04 Cholesterol/HDL Ratio 2.49 05/04/22 03:04 Lipase 303 U/L (73-393) 05/02/22 23:27 Home Medications: Furosemide [Lasix] 80 mg PO DAILY 04/14/20 Isosorbide Mononitrate [Isosorbide Mononitrate ER] 60 mg PO DAILY 04/14/20 Pramipexole [Mirapex*] 1 mg PO BEDTIME 04/14/20 Escitalopram [Lexapro*] 10 mg PO BEDTIME 11/27/21 Pantoprazole [Protonix Tab*] 40 mg PO DAILY 11/27/21 Doxazosin Mesylate 4 mg PO DAILY 01/02/22 Sevelamer Carbonate [Renvela*] 2 tab PO TIDWM 01/02/22 Rivastigmine Tartrate [Rivastigmine] 1 cap PO BID 05/03/22 Apixaban [Eliquis *] 2.5 mg PO BID #30 tab 05/08/22 Ertapenem Na [Invanz] 1 gm IVPB DAILY #5 ml 05/08/22 Heparin [Heparin 1,000 units/mL *] 4,000 unit IV EVERY HD PRN vial 05/08/22 Heparin [Heparin 1,000 units/mL *] 6,000 unit IV EVERY HD PRN vial 05/08/22 New Medications: Apixaban [Eliquis *] 2.5 mg PO BID #30 tab Ertapenem Na [Invanz] 1 gm IVPB DAILY #5 ml Diet: Renal Activity: Ad stefani Time spent managing pt's care (in minutes): 38
[2022-05-08] MEDS ORDERED: ERTAPENEM NA 1 GM in NA CHLORIDE 0.9% 100 ML IVPB ONE (10:00)
[2022-05-08 10:14] VITALS: O2SAT 98
[2022-05-08 12:32] VITALS: BP 105/49; TEMP 96.9
[2022-05-10 21:12] LABS: HBsAG Nonreactive (Nonreactive)
== END 2022-05-08 13:37 | disposition home or self-care (01) | DRG 689 ==
LOC: ER 21:00 → ERHOLD 05-03 02:58 → 4TH 05-03 08:13
PROVIDERS: ADMIT Internal Medicine; ATTEND Internal Medicine
DX: N30.01 Acute cystitis with hematuria (principal); N18.6 End stage renal disease; I13.2 Hypertensive heart and chronic kidney disease with heart failure and with stage 5 chronic kidney disease, or end stage renal disease; I82.531 Chronic embolism and thrombosis of right popliteal vein; T82.41XA Breakdown (mechanical) of vascular dialysis catheter, initial encounter; B96.1 Klebsiella pneumoniae [K. pneumoniae] as the cause of diseases classified elsewhere; E11.22 Type 2 diabetes mellitus with diabetic chronic kidney disease; E11.65 Type 2 diabetes mellitus with hyperglycemia; I50.9 Heart failure, unspecified; Z99.2 Dependence on renal dialysis; Z79.4 Long term (current) use of insulin; D63.1 Anemia in chronic kidney disease; J44.9 Chronic obstructive pulmonary disease, unspecified; M06.9 Rheumatoid arthritis, unspecified; I25.10 Atherosclerotic heart disease of native coronary artery without angina pectoris; I25.2 Old myocardial infarction; Z95.0 Presence of cardiac pacemaker; Z90.710 Acquired absence of both cervix and uterus
CPT/HCPCS: 36415; 71045; 74176; 80048; 80053; 80061; 81001; 81003; 81015; 82947; 83605; 83690; 83735; 84100; 84145; 84443; 85014; 85018; 85025; 86317; 87040; 87077; 87086; 87088; 87186; 87340; 87811; 90935; 93970; 93971; 94760; 99284; J1335; J1644; J1815; J2270; J2405; J2765; J2997; J3010; J3475; J7050

== ENCOUNTER 2022-06-08 03:19 | Observation (INO) | payer OTHER ==
--- OUTSIDE RECORDS SUMMARY | 2022-06-08 04:25 | XMS REPORT | Continuity of Care Document ---
:1950 Author Organization [facility] t Address [address]. [address] [place] [address] Care Team Providers Name Role Phone Pcp, Patient Does Not Have A Primary Care Physician [phone] 00-0000 Greg Fuentes Attending Clinician Unavailable Doctor Unassigned, [place] Attending Clinician Unavailable Luc Alvarez Attending Clinician Alannah Renner MD Attending Clinician Annalee Bey MD Attending Clinician Mauro Mendoza MD Attending Clinician ANNALEE BEY Attending Clinician Unavailable ALANNAH RENNER Attending Clinician Unavailable Trinidad Menard MD Attending Clinician Corrine Osuna MD Attending Clinician Natasha HOLLIDAY, Edwin Toribio Attending Clinician [phone] John HOLLIDAY, Shanon Vidal Attending Clinician [phone] Tim HOLLIDAY, Tammy Thompson Attending Clinician Armen HOLLIDAY, Edwin Attending Clinician Scot HOLLIDAY, Tasneem Attending Clinician Savannah HOLLIDAY, Annalee Attending Clinician Amaury HOLLIDAY, Leodan Attending Clinician Ru HOLLIDAY, Josemanuel Attending Clinician Andre Navarro Attending Clinician Juan BETH, Grazyna Magana Attending Clinician Abbie HOLLIDAY, Joanna Attending Clinician Provider, Unknown Attending Clinician Unavailable Shabana PALOMO, Zulema Attending Clinician Michaela Attending Clinician Unavailable MD CORRINE OSUNA Attending Clinician Unavailable DAVID HIGUERA Attending Clinician Unavailable SHAKEEL NARANJO Attending Clinician Unavailable SARAI SANDRA Attending Clinician Unavailable Radha Cabrera Admitting Clinician Unavailable SHIRLEY PARKS Admitting Clinician Unavailable CORRINE OSUNA Admitting Clinician Unavailable TAMMY DUMONT Admitting Clinician Unavailable Michaela Admitting Clinician Unavailable MD CORRINE OSUNA Admitting Clinician Unavailable SARAI SANDRA Admitting Clinician Unavailable Payers Payer Name Policy Type Policy Number Effective Date Expiration Date S gus [facility] [id number] 2021 (NON-CONTRACTED) 00:00:00 [facility] [id number] 2021 [facility] 00:00:00 [facility] - [id number] [facility] (O) Problems Condition Condition Condition Status Onset Resolution Last Treating Co mments Source Name Details Category Date Date Treatment Clinician Date Complicati Complicati Disease Active [facility] dical with with 00 Center dialysis dialysis catheter catheter Diarrhea Diarrhea Disease Active [facility] di [facility] 00:00: Hospita 00 l Chronic Chronic Disease Active [facility] vomiting vomiting 4-24 st 00:00: Hospita 00 l Clostridiu Clostridiu Disease Active M ethodi m m 4-20 st difficile difficile 00:00: [facility] colitis colitis 00 l Acute Acute Disease Active [facility] respirator respirator 3-12 st y failure y failure 00:00: [facility] with with 00 l hypoxia hypoxia Depression Depression Disease Active M ethodi 1-14 st 00:00: Hospita 00 l Hyperglyce Hyperglyce Disease Active M ethodi masood masood 111 st 00:00: Hospita 00 l Chest pain Chest pain Disease Active 2019-05 M ethodi 1-16 st 00:00: Hospita 00 l Chest pain Chest pain Disease Active 2019-05 M ethodi at rest at rest 115 st 00:00: Hospita 00 l Elevated Elevated Disease Active 2019-05 Metho di troponin troponin 15 00:00: Hospita 00 l Occlusion Occlusion Disease Active 2019-05 [facility] of left of left 05-25 st subclavian subclavian 00:00: Ho spita vein vein 00 l Complicati Complicati Disease Active 2019-05 M ethodi on of on of 05-22 vascular vascular 00:00: Hospit a access for access for 00 l dialysis dialysis Dehydratio Dehydratio Disease Active M ethodi n n 10-25 00:00: Hospita 00 l Hypoglycem Hypoglycem Disease Active M ethodi ia ia 10-25 00:00: Hospita 00 l Edema of Edema of Disease Active [facility] di left upper left upper 2 st extremity extremity 00:00: [facility] 00 l Disorder Disorder Disease Active [facility] di of cardiac of cardiac 07-10 st pacemaker pacemaker 00:00: [facility] system system 00 l Other Other Disease Active [facility] specified specified 2-19 st anemias anemias 00:00: Hospita 00 l ESRD (end ESRD (end Disease Active [facility] stage stage 2-19 st renal renal 00:00: Hospita disease) disease) 00 l on on dialysis dialysis Acute on Acute on Disease Active Meth[facility] di chronic chronic 2-19 st congestive congestive 00:00: Ho spita heart heart 00 l failure failure 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 1-08 st , initial , initial 00:00: [facility] encounter encounter 00 l Left-sided Left-sided Disease Active 2018-05 M ethodi chest pain chest pain 106 st 00:00: Hospita 00 l Altered Altered Disease Active 2018-05 [facility] mental mental 0-14 st status status 00:00: Hospita 00 l Right leg Right leg Disease Active [facility] pain pain 01-28 st 00:00: Hospita 00 l Hypokalemi Hypokalemi Disease Active M ethodi a a 01-28 st 00:00: Hospita 00 l Hypokalemi Hypokalemi Disease Active M ethodi a a 09-16 st 00:00: Hospita 00 l Acute Acute Disease Active 2017-05 [facility] renal renal 113 st failure failure 00:00: Hospita 00 l Hypoglycem Hypoglycem Disease Active 2017-05 M ethodi ia ia 0 st 00:00: Hospita 00 l Primary Primary Disease Active 2016-05 [facility] osteoarthr osteoarthr 1-20 st itis of itis of 00:00: Hospita right knee right knee 00 l Chronic Chronic Disease Active 2016-05 [facility] pain of pain of 0-26 st right knee right knee 00:00: Ho spita 00 l 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 00:00: Hospit a of bone) of bone) 00 l Swelling Swelling Disease Active 2016-05 [facility] di of right of right 0-26 st knee joint knee joint 00:00: Ho spita 00 l Knee Knee Disease Active 2016-05 [facility] instabilit instabilit 0-26 st y, right y, right 00:00: Hospit a 00 l Pyogenic Pyogenic Disease Active Metho di arthritis arthritis 9-23 st of left of left 00:00: Hospita shoulder shoulder 00 l region region Weakness Weakness Disease Active Metho di 5-12 st 00:00: Hospita 00 l 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 3- [facility] [place] 00:[place]: [facility]ospita coronary coronary 00 l artery of artery of [place] heart heart without without angina angina pectoris pectoris 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 00:00: Hospit a with with 00 l diabetic diabetic neuropathy neuropathy Renal Renal Disease Active [facility] insufficie insufficie 08-16 st ncy ncy 00:00: Hospita 00 l Essential Essential Disease Active Met [facility] hypertensi hypertensi 08-16 st on on 00:00: Hospita 00 l Mixed Mixed Disease Active [facility]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 08-16 st emia emia 00:00: Hospita 00 l RLS RLS Disease Active [facility] (restless (restless 08-16 legs legs 00:00: Hospita syndrome) syndrome) 00 l Diverticul Diverticul Disease Active M ethodi osis of osis of 08-16 large large 00:00: Hospita intestine intestine 00 l without without hemorrhage hemorrhage Status Status Disease Active [facility] cardiac cardiac 08-16 st pacemaker pacemaker 00:00: [facility] 00 l Congestive Congestive Disease Active M ethodi heart heart 08-16 st failure failure 00:00: Hospita 00 l Primary Primary Disease Active [facility] insomnia insomnia 08-16 st 00:00: Hospita 00 l ART ART Disease Active [facility] (obstructi (obstructi 08-16 st ve sleep ve sleep 00:00: Hospit a apnea) apnea) 00 l CKD CKD Disease Active [facility] (chronic (chronic 827 ity of kidney kidney 00:00: [place] disease) disease) 00 Medica l stage 4, stage 4, Branch GFR 15-29 GFR 15-29 ml/min ml/min Type 2 Type 2 Disease Active Overview: Univer s diabetes diabetes Formattin ity of mellitus mellitus g of this [facility] as with with note Medical diabetic diabetic might be Bran ch nephropath nephropath different y y from the original. follows with Dr. Ngo in [place] Neuropathy Neuropathy Disease Active Overview : [facility] Formattin ity of g of [facility] note Medical might be Branch different from the original. in feet and legs Hyperchole Hyperchole Disease Active Overview : [facility] steremia steremia Formattin ity of g of this [place] note Medical might be Branch different from the original. follows with Dr. Higuera HTN HTN Disease Active Overview: [facility] (hypertens (hypertens Formattin ity of ion) ion) g of this [place] note Medical might be Branch different from the original. follows with Dr. Higuera Atrial Atrial Disease Active Overview: [facility] s fibrillati fibrillati Formattin ity of on on g of this [place] note Medical might be Branch different from the original. follows with Dr. Higuera Allergies, Adverse Reactions, Alerts Allergy Allergy Status Severity Reaction(s) Onset Inactive Treating Comm ents Source Name Type Date Date Clinician No Known DA Active [facility] Allergie -17 Clear s 00:00: An 00 [facility] Hydrocod Propensi Active GI "not an Metho di one ty to Intolerance 06-02 allergy, st adverse 00:00: but it Hospita reaction 00 upsets my l s to stomach drug every time I take it" No Known DA Active U [facility] Allergie 01-30 Clear s 00:00: An 00 [facility] NO KNOWN Allergy Active [facility] NO KNOWN Drug Active [facility] ALLERG Class ity of S [facility] Family History Family Member Diagnosis Comments Start Date Stop Date Source Natural brother Cancer [facility] Natural brother Colon cancer [facility] Natural brother Lung cancer [facility] Maternal grandmother Brain cancer [facility] Maternal grandmother Cancer [facility] mother Cancer [facility] Natural mother Uterine cancer [facility] Natural sister Breast cancer [facility] Natural sister Cancer [facility] Social History Social Habit Start Date Stop Date Quantity Comments Source History [facility] Worship Alcohol Std Drinks Hospit al Tobacco use and 2022-01-08 2022-01-08 Never used [facility] exposure 00:00:00 00:00:00 Medical Center Alcohol intake 2021-09-14 2021-09-14 Current Worship 00:00:00 00:00:00 non-drinker of Hospital alcohol (finding) History [facility] 2020-04-05 2020-04-05 1 Worship Alcohol Frequency 00:00:00 00:00:00 Hospita l History [facility] 2020-04-05 2020-04-05 1 Worship Alcohol Binge 00:00:00 00:00:00 Hospital Sex [birth year] Worship 00:00:00 00:00:00 Hospital Smoking Status Start Date Stop Date Source Never smoker [facility] Medications Ordered Filled Start Stop Current Ordering Indication Dosage Frequency Signature Comments Components Source Medication Medication Date Date Medication? Clinician (SIG) Name Name aspirin 81 0 Yes 81mg QD Take [address] MG chewable 8-30 by mouth Luke s tablet 16:49: daily. [address] apixaban 0 Yes 2.5mg Q.5D Take 2.[address] (Eliquis) 8-30 mg by [facility] 2.5 mg Tab 16:49: mouth 2 Medi keira tablet 03 (two) Center times daily. pramipexole Yes 1mg QD Take [address] (MIRAPEX) 1 8-30 by mouth Luke s MG tablet 16:49: nightly. [address] semaglutide Yes .25mg Inject [facility] (Ozempic) 8-30 0.25 mg [facility] 0.25 mg or 16:49: subcutaneo M edical 0.5 mg(2 03 usly every Cente r mg/1.5 mL) 7 days PnIj Every Monday . pantoprazol Yes 40mg QD Take [address] e 8-30 by mouth [facility] (PROTONIX) 16:49: daily. Medic al [address] [place] [address] tablet traZODone Yes 100mg QD Take [address] (DESYREL) 8-30 mg by [facility] 100 MG 16:49: mouth Medical tablet 03 nightly. [place] aspirin 81 0 Yes 81mg QD Take [address] MG chewable 8-30 by mouth Luke s tablet 16:49: daily. [address] apixaban 0 Yes 2.5mg Q.5D Take 2.[address] (Eliquis) 8-30 mg by [facility] 2.5 mg Tab 16:49: mouth 2 Medi keira tablet 03 (two) Center times daily. pramipexole 0 Yes 1mg QD Take 1 mg C [...] MG 16:49: mouth Medical tablet 03 nightly. Center hydrALAZINE 2021- No 25mg [id number] Take [address] (APRESOLINE -18 01-30 [id number] by mouth 3 [facility] ) 25 MG 11:55: 00:00 3D (three) Medica l tablet 27 :00 times Center daily. budesonide 2021- No 3mg QD Take [address] (ENTOCORT 01-18 08-30 by mouth [facility] EC) 3 mg 24 11:55: 00:00 every Medi keira hr capsule 27 :00 morning. Cente r carvediloL 2021- No 25mg Take [address] (COREG) 25 - 08-30 by mouth 2 Camille kes MG tablet 11:55: 00:00 (two) Medica l 27 :00 times Center daily with breakfast and dinner. doxazosin 2021- No 4mg QD Take [address] (CARDURA) 4 - 08-30 by mouth Christopher es MG tablet 11:55: 00:00 nightly. Med ical 27 :00 Center isosorbide 2021- No 60mg QD Take [address] mononitrate 01-18 08-30 by mouth Christopher es (IMDUR) 60 11:55: 00:00 daily. Medi keira MG 24 hr 27 :00 Center tablet insulin 2021- No 40U QD Inject [address] glargine 01-18 08-30 Units [facility] (LANTUS, 11:55: 00:00 subcutaneo Me dical SEMGLEE) 27 :00 usly Center 100 unit/mL nightly injection Use as directed . furosemide 2021- No 80mg Q.5D Take [address] (LASIX) 80 01-18-30 by mouth 2 Camille kes MG tablet 11:55: 00:00 (two) Medica l 27 :00 times Center daily. escitalopra 2021- No 10mg QD Take [address] m oxalate 01-18-30 by mouth [facility] (LEXAPRO) 11:55: 00:00 nightly. Med ical 10 MG 27 :00 Center tablet melatonin 2021- No 10mg QD Take [address] 10 mg TbDL 01-18 by mouth Luke s 11:55: 00:00 nightly. Medical 27 :00 Center insulin 2021- No 10U Inject [address] aspart 01-18-30 Units [facility]ukes U-100 11:55: 00:00 subcutaneo Medic al (NovoLOG) 27 :00 ly 3 Center 100 unit/mL (three) (3 mL) InPn times daily before meals. calcitrioL 2021- No .25ug QD Take 0.[address] (ROCALTROL) 01-18-30 mcg by [facility]ukes 0.25 MCG 11:55: 00:00 mouth Medical capsule 27 :00 daily. Center hydrALAZINE 2021- No 25mg Q.[id number] Take [address] (APRESOLINE 01-18- [id number] by mouth 3 [facility] ) 25 MG 11:55: 00:00 3D (three) Medica l tablet 27 :00 times Center daily. budesonide 2021- No 3mg QD Take [address] (ENTOCORT 01-18- by mouth [facility]ukes EC) 3 mg 24 11:55: 00:00 every Medi keira hr capsule 27 :00 morning. Cente r carvediloL 2021- No 25mg Take [address] (COREG) 25 01-18-30 by mouth 2 Camille kes MG tablet 11:55: 00:00 (two) Medica l 27 :00 times Center daily with breakfast and dinner. doxazosin 2021- No 4mg QD Take [address] (CARDURA) 4 01-18-30 by mouth Christopher es MG tablet 11:55: 00:00 nightly. Med ical 27 :00 Center isosorbide 2021- No 60mg QD Take [address] mononitrate 01-18-30 by mouth Christopher es (IMDUR) 60 11:55: 00:00 daily. Medi keira MG 24 hr 27 :00 Center tablet insulin 2021- No 40U QD Inject [address] glargine 01-18 08-30 Units [facility] (LANTUS, 11:55: 00:00 subcutaneo Me dical SEMGLEE) 27 :00 usly Center 100 unit/mL nightly injection Use as directed . furosemide 2021- No 80mg Q.5D Take [address] (LASIX) 80 01-18-30 by mouth 2 Camille kes MG tablet 11:55: 00:00 (two) Medica l 27 :00 times Center daily. escitalopra 2021- No 10mg QD Take [address] m oxalate 01-18-30 by mouth [facility] (LEXAPRO) 11:55: 00:00 nightly. Med ical 10 MG 27 :00 Center tablet melatonin 2021- No 10mg QD Take [address] 10 mg TbDL 01-18-30 by mouth Luke s 11:55: 00:00 nightly. Medical 27 :00 Center insulin 2021- No 10U Inject [address] aspart 8-30 08-30 Units [facility]ukes U-100 11:55: 00:00 subcutaneo Medic al (NovoLOG) 27 :00 usly 3 Center 100 unit/mL (three) (3 mL) InPn times daily before meals. calcitrioL 2021- No .25ug QD Take 0.[address] (ROCALTROL) 8-30 08-30 mcg by [facility]ukes 0.25 MCG 11:55: 00:00 mouth Medical capsule 27 :00 daily. Center HYDROcodone 2021- No 1{tbl} Take [address] -acetaminop -02-17 tablet by Camille pablo (NORCO 00:00: 23:59 mouth Medic al 5-325) 00 :00 every 6 Center 5-325 mg (six) per tablet hours as needed for Pain (Right knee septic joint) for up to 30 days. Max Daily Amount: 4 tablets HYDROcodone 2021- No 1{tbl} Take 1 C [...] g [facility] (ROCEPHIN) 01-18 intravenou [facility] kes 2 g in 00:00: 23:59 sly daily Medic al sodium 00 :00 for 25 Center chloride days 0.9 % (NS) End-date: 100 mL 02/12/2022 (V2B) IVPB for septic right knee joint growing Klebsiella . cefTRIAXone 2021- No 2g QD Inject [address] (ROCEPHIN) 01-18 intravenou [facility] kes 2 g in 00:00: 23:59 sly daily Medic al sodium 00 :00 for 25 Center chloride days 0.9 % (NS) End-date: 100 mL 02/12/2022 (V2B) IVPB for septic right knee joint growing Klebsiella . HYDROcodone 2021- No 1{tbl} Take [address] -acetaminop 8-18 01- tablet by Camille pablo (NORCO 00:00: 00:00 mouth Medic al 5-325) 00 :00 every 6 Center 5-325 mg (six) per tablet hours as needed for Pain (Right knee septic joint). Max Daily Amount: 4 tablets HYDROcodone 2021- No 1{tbl} Take [address] -acetaminop 8-30 -30 tablet by Camille pablo (NORCO 00:00: 00:00 mouth Medic al 5-325) 00 :00 every 6 Center 5-325 mg (six) per tablet hours as needed for Pain (Right knee septic joint). Max Daily Amount: 4 tablets vancomycin 2021- No 125mg Q2D Take 1 Met hodi (Vancocin) 10-[address] 125 MG 00:00: 04:59 (125 mg Hospita capsule 00 :00 total) by l mouth every other day for 7 doses. vancomycin 2021- No 125mg QD Take 1 Met hodi (Vancocin) 10-[address] 125 MG 00:00: 04:59 (125 mg Hospita capsule 00 :00 total) by l mouth daily for 7 doses. vancomycin 2021- No 125mg Q.5D Take 1 Met [facility]odi (Vancocin) 09-[address] 125 MG 00:00: 04:59 (125 mg Hospita capsule 00 :00 total) by l mouth 2 (two) times a day for 14 doses. vancomycin 2021- No 125mg Q.[id number] Take 1 [facility] (Vancocin) 09-24- [id number] capsule st 125 MG 00:00: 04:59 3D (125 mg Hospita capsule 00 :00 total) by l mouth 3 (three) times a day for 8 doses. apixaban Yes 2.5mg Q.5D Take 2.5 Meth ramiro (ELIQUIS) 4-[address] 2.5 mg 18:55: mouth 2 Hospita tablet 03 (two) l times a day. metoprolol 2021- No 100mg Q.5D Take 100 M ethodi tartrate 09-17-[address] (LOPRESSOR) 18:55: 00:00 mouth 2 Ho spita 100 mg 03 :00 (two) l tablet times a day. furosemide 2021- No 40mg Q.5D Take 40 mg [facility] (LASIX) 40 -17 09-[address] mg tablet 18:55: 00:00 (two) Hospit a 03 :00 times a l day. BUMETanide 2021- No 1mg QD Take 1 mg M ethodi (BUMEX) 1 09-16-[address] MG tablet 18:55: 00:00 daily. Hospi ta 55 :00 l pramipexole 0 Yes 1mg QD Take 1 mg M ethodi (MIRAPEX) 1 -[address] MG tablet 18:55: nightly. [facility] 51 l melatonin 2021-0 Yes 10mg QD Take 10 mg Me thodi 10 mg -[address] capsule 18:55: daily. Hospita 51 l traZODone 2021-0 Yes 100mg QD Take 100 Met [facility] (DESYREL) 4-[address] 100 MG 18:55: mouth Hospita tablet 51 nightly. l isosorbide 0 Yes 60mg QD Take 60 mg M ethodi mononitrate -[address] (IMDUR) 60 18:55: daily. Hospi ta MG 24 hr 51 l tablet escitalopra 0 Yes 10mg QD Take 10 mg Methodi m (LEXAPRO) 4-[address] 10 MG 18:55: daily. Hospita tablet 51 l calcitrioL 0 Yes .25ug QD Take 0.25 M ethodi (ROCALTROL) - mcg by st 0.25 MCG 18:55: mouth Hospita capsule 51 daily. l hydrALAZINE 2021- No 25mg Q.[id number] Take 1 [facility] (APRESOLINE 09-16- [id number] tablet (25 st ) 25 MG 00:00: 04:59 3D mg total) [facility] tablet 00 :00 by mouth l every 8 (eight) hours for 30 days. aspirin 81 2021- No 81mg QD Chew 1 Meth ramiro mg chewable 09-16- tablet (81 s t tablet 00:00: 04:59 mg total) Hospi ta 00 :00 daily for l 30 days. carvediloL 0 2021- No 25mg Q.5D Take 1 Meth ramiro (COREG) 25 09-16- tablet (25 st MG tablet 00:00: 04:59 mg total) Ho spita 00 :00 by mouth 2 l (two) times a day for 30 days. pantoprazol 0 2021- No 40mg QD Take 1 Met hodi e 09-16- tablet (40 st (Protonix) 00:00: 04:59 mg total) H ospita 40 MG EC 00 :00 by mouth l tablet daily for 30 days. vancomycin 2021- No 125mg Q.25D Take 1 Me thodi (Vancocin) 09-16-[address] 125 MG 00:00: 04:59 (125 mg Hospita capsule 00 :00 total) by l mouth 4 (four) times a day for 8 days. clonIDINE 2021- No .1mg QD Take 0.1 Met hodi (CATAPRES) 08-14-[address] 0.1 MG 19:46: 00:00 mouth Hospita tablet 04 :00 nightly. l insulin No Inject Methodi LISPRO 08-[address] PROTAMIN-LI 19:46: 00:00 skin. [facility] SPRO 04 :00 l (HUMALOG 50-50) 100 unit/mL (50-50) suspension subcutaneou s vial insulin No 100U QD Inject 100 Met hodi GLARGINE 08-14- Units st (LANTUS) 19:46: 00:00 under the Hos keo 100 unit/mL 04 :00 skin l injection daily. (vial) digOXIN No 125ug QD Take 125 Meth ramiro (LANOXIN) 08-14- mcg by st 125 mcg 19:46: 00:00 mouth Hospita (0.125 mg) 04 :00 daily. l tablet rOPINIRole No 1mg QD Take 1 mg M ethodi (REQUIP) 1 08-[address] MG tablet 19:46: 00:00 nightly. Hos koe 04 :00 l aspirin 81 2021- No 81mg QD Chew 1 Meth ramiro mg chewable 08-14 tablet (81 s t tablet 00:00: 00:00 mg total) Hospi ta 00 :00 daily for l 30 days. hydrALAZINE 2021- No 100mg Q.[id number] Take 100 [facility] (APRESOLINE 08-13- [id number] mg by st ) 100 MG 19:46: 00:00 3D mouth 3 Hospi ta tablet 31 :00 (three) l times a day. apixaban 2021- No 2.5mg Q.5D Take 2.5 Met hodi (ELIQUIS) 3-25 03-[address] 2.5 mg 19:46: 00:00 mouth 2 Hospita tablet 31 :00 (two) l times a day. potassium 2021-2021- No 10meq Q.5D Take 10 Met [facility]odi chloride 3-25 03-[address] (K-DUR) 10 19:46: 00:00 mouth 2 Hos keo MEQ CR 31 :00 (two) l tablet times a day. cholecalcif 2021- No 5000U QD Take 5,000 Methodi sophia, - 03-[address] vitamin D3, 19:46: 00:00 mouth [facility] 1,000 unit 31 :00 daily. l tablet doxazosin 2021- No 1{tbl} Q.5D Take 1 Met [facility]odi (CARDURA) 4 -25 03-[address] MG tablet 19:46: 00:00 mouth 2 [facility] 31 :00 (two) l times a day. metoprolol 2021- No 100mg Q.5D Take 100 M ethodi tartrate 08-13 03-[address] (LOPRESSOR) 19:46: 00:00 mouth 2 Ho spita 100 mg 31 :00 (two) l tablet times a day. insulin 2021- No 12U QD Inject Methodi GLARGINE 08-13- 0.[address] (LANTUS) 00:00: 00:00 (12 Units Hos keo 100 unit/mL 00 :00 total) l injection under the (vial) skin nightly for 30 days. carvediloL 2021- No 25mg Q.5D Take 1 Meth ramiro (COREG) 25 08-13-28 tablet (25 st MG tablet 00:00: 00:00 mg total) Ho spita 00 :00 by mouth 2 l (two) times a day for 30 days. hydrALAZINE 2021- No 50mg Q.[id number] Take 1 [facility] (APRESOLINE 08-13- [id number] tablet (50 st ) 50 MG 00:00: 00:00 3D mg total) [facility] tablet 00 :00 by mouth l every 8 (eight) hours for 30 days. insulin 2021- No 20U QD Inject 0.2 Met hodi GLARGINE 06-0515 mL (20 st (LANTUS) 00:00: 05:59 Units Hospita 100 unit/mL 00 :00 total) l injection under the (vial) skin daily with breakfast for 30 days. SITagliptin 2021- No 25mg QD Take 1 Met hodi (JANUVIA) 06-05 tablet (25 st 25 MG 00:00: 05:59 mg total) Hospit a tablet 00 :00 by mouth l daily with breakfast for 30 days. hydrALAZINE 2021- No 100mg Q.5D Take 1 Me thodi (APRESOLINE 06-[address] ) 100 MG 00:00: 05:59 (100 mg Hospi ta tablet 00 :00 total) by l mouth 2 (two) times a day with meals for 30 days. isosorbide 2021- No 60mg QD Take 1 Meth ramiro mononitrate 06-04 tablet (60 s t (IMDUR) 60 00:00: 05:59 mg total) H ospita MG 24 hr 00 :00 by mouth l tablet every morning for 30 days. fluticasone 2021- No 100ug QD 2 sprays Methodi propionate 06-04 ([address] (FLONASE) 00:00: 05:59 total) by Ho spita 50 00 :00 Each Nare l mcg/actuati route on nasal daily for spray 30 days. digOXIN 2021- No 125ug Q48H Take 1 Method i (LANOXIN) 06-[address] 125 mcg 00:00: 05:59 (125 mcg Hospi ta (0.125 mg) 00 :00 total) by l tablet mouth every other day for 30 days. clonIDINE 2021- No .1mg QD Take 1 Metho di (CATAPRES) 06-[address] 0.1 MG 00:00: 05:59 (0.1 mg Hospita tablet 00 :00 total) by l mouth nightly for 30 days. calcitrioL No .25ug QD Take 1 Met hodi (ROCALTROL) 06-[address] 0.25 MCG 00:00: 05:59 (0.25 mcg Hos keo capsule 00 :00 total) by l mouth every morning for 30 days. levalbutero No [id number] 1.25mg Q8H Take 3 mL Methodi l (XOPENEX) 06-04 (1.[address] 1.25 mg/3 00:00: 05:59 total) by Ho spita mL 00 :00 nebulizati l nebulizer on every 8 solution (eight) hours as needed for wheezing for up to 30 days. escitalopra No 10mg QD Take 1 Met hodi m (LEXAPRO) 06-04 tablet (10 s t 10 MG 00:00: 05:59 mg total) Hospit a tablet 00 :00 by mouth l every evening for 30 days. insulin No 5U [id number] Inject M ethodi LISPRO 06-04 [id number] 0.05 mL (5 st (ADMELOG) 00:00: 05:59 3D Units Hospit a 100 unit/mL 00 :00 total) l subcutaneou under the s vial skin 3 (three) times a day with meals for 30 days. nystatin No Apply Methodi (MYCOSTATIN 06-[address] ) 100,000 00:00: 05:59 as needed [facility] unit/gram 00 :00 (rash) for l powder up to 30 days. budesonide 2020-05 Yes 3mg [id number] Take 3 mg Methodi EC 12 [id number] by mouth 3 st (ENTOCORT 00:00: 3D (three) Hospi ta EC) 3 mg 24 00 times a l hr capsule day. triamcinolo 2021- No 1{appli Q.5D Apply 1 Methodi ne 7- 03-25 cation} applicatio st (KENALOG) 00:00: 00:00 n Hospita 0.1 % cream 00 :00 topically l 2 (two) times a day. Under breast and between legs allopurinol Yes [id number] 150mg Take 150 Univers (ZYLOPRIM) 1-04 mg by ity of 100 mg 15:21: mouth [place] tablet 32 daily. Medical Branch CALCIUM Yes .25mg Take 0.25 Univ ers CARBONATE/V 1-04 mg by ity of ITAMIN D3 15:21: mouth [place] (VITAMIN 32 daily. Medical D-3 ORAL) Branch allopurinol Yes [id number] 150mg Take 150 Univers (ZYLOPRIM) 1-04 mg by ity of 100 mg 15:21: mouth [place] tablet 32 daily. Medical Branch CALCIUM Yes .25mg Take 0.25 Univ ers CARBONATE/V 1-04 mg by ity of ITAMIN D3 15:21: mouth [place] (VITAMIN 32 daily. Medical D-3 ORAL) Branch allopurinol Yes [id number] 150mg Take 150 Univers (ZYLOPRIM) 1-04 mg by ity of 100 mg 15:21: mouth [place] tablet 32 daily. Medical Branch CALCIUM Yes .25mg Take 0.25 Univ ers CARBONATE/V 1-04 mg by ity of ITAMIN D3 15:21: mouth [place] (VITAMIN 32 daily. Medical D-3 ORAL) Branch allopurinol Yes [id number] 150mg Take 150 Univers (ZYLOPRIM) 1-04 mg by ity of 100 mg 15:21: mouth [place] tablet 32 daily. Medical Branch CALCIUM Yes .25mg Take 0.25 Univ ers CARBONATE/V 1-04 mg by ity of ITAMIN D3 15:21: mouth [place] (VITAMIN 32 daily. Medical D-3 ORAL) Branch allopurinol Yes [id number] 150mg Take 150 Univers (ZYLOPRIM) 1-04 mg by ity of 100 mg 15:21: mouth [place] tablet 32 daily. Medical Branch CALCIUM Yes .25mg Take 0.25 Univ ers CARBONATE/V 1-04 mg by ity of ITAMIN D3 15:21: mouth [place] (VITAMIN 32 daily. Medical D-3 ORAL) Branch allopurinol Yes [id number] 150mg Take 150 Univers (ZYLOPRIM) 1-04 mg by ity of 100 mg 15:21: mouth [place] tablet 32 daily. Medical Branch allopurinol Yes [id number] 150mg Take 150 Univers (ZYLOPRIM) 1-04 mg [...] daily. Medical D-3 ORAL) Branch allopurinol Yes [id number] 150mg Take 150 Univers (ZYLOPRIM) 1-04 mg by ity of 100 mg 15:21: mouth [place] tablet 32 daily. Medical Branch CALCIUM Yes .25mg Take 0.25 Univ ers CARBONATE/V 1-04 mg by ity of ITAMIN D3 15:21: mouth [place] (VITAMIN 32 daily. Medical D-3 ORAL) Branch allopurinol Yes [id number] 150mg Take 150 Univers (ZYLOPRIM) 1-04 mg by ity of 100 mg 15:21: mouth [place] tablet 32 daily. Medical Branch CALCIUM Yes .25mg Take 0.25 Univ ers CARBONATE/V 1-04 mg by ity of ITAMIN D3 15:21: mouth [place] (VITAMIN 32 daily. Medical D-3 ORAL) Branch allopurinol Yes [id number] 150mg Take 150 Univers (ZYLOPRIM) 1-04 mg by ity of 100 mg 15:21: mouth [place] tablet 32 daily. Medical Branch CALCIUM Yes .25mg Take 0.25 Univ ers CARBONATE/V 1-04 mg by ity of ITAMIN D3 15:21: mouth [place] (VITAMIN 32 daily. Medical D-3 ORAL) Branch furosemide Yes [id number] 40mg Take 40 mg Univers (LASIX) 20 1-04 by mouth ity o f mg tablet 15:19: daily. [place] [address] Medical Branch furosemide Yes [id number] 40mg Take 40 mg Univers (LASIX) 20 1-04 by mouth ity o f mg tablet 15:19: daily. [place] [address] Medical Branch furosemide Yes [id number] 40mg Take 40 mg Univers (LASIX) 20 1-04 by mouth ity o f mg tablet 15:19: daily. [address] furosemide 2016- Yes [id number] 40mg Take 40 mg Univers (LASIX) 20 1-04 by mouth ity o f mg tablet 15:19: daily. [address] furosemide Yes [id number] 40mg Take 40 mg Univers (LASIX) 20 1-04 by mouth ity o f mg tablet 15:19: daily. [address] furosemide Yes [id number] 40mg Take 40 mg Univers (LASIX) 20 1-04 by mouth ity o f mg tablet 15:19: daily. [address] furosemide Yes [id number] 40mg Take 40 mg Univers (LASIX) 20 1-04 by mouth ity o f mg tablet 15:19: daily. [address] furosemide Yes [id number] 40mg Take 40 mg Univers (LASIX) 20 1-04 by mouth ity o f mg tablet 15:19: daily. [address] furosemide Yes [id number] 40mg Take 40 mg Univers (LASIX) 20 1-04 by mouth ity o f mg tablet 15:19: daily. [address] furosemide Yes [id number] 40mg Take 40 mg Univers (LASIX) 20 1-04 by mouth ity o f mg tablet 15:19: daily. [address] Golimumab Yes [id number] inject U nivers (SIMPONI) 1-04 under the ity o f 50 mg/0.5 15:18: skin. [place] mL 20 Infusion Medical injection every 8 Branch weeks for rheumatoid arthritis. Golimumab Yes [id number] inject U nivers (SIMPONI) 1-04 under the ity o f 50 mg/0.5 15:18: skin. [place] mL 20 Infusion Medical injection every 8 Branch weeks for rheumatoid arthritis. Golimumab Yes [id number] inject U nivers (SIMPONI) 1-04 under the ity o f 50 mg/0.5 15:18: skin. [place] mL 20 Infusion Medical injection every 8 Branch weeks for rheumatoid arthritis. Golimumab Yes [id number] inject U nivers (SIMPONI) 1-04 under the ity o f 50 mg/0.5 15:18: skin. [place] mL 20 Infusion Medical injection every 8 Branch weeks for rheumatoid arthritis. Golimumab Yes [id number] inject U nivers (SIMPONI) 1-04 under the ity o f 50 mg/0.5 15:18: skin. [place] mL 20 Infusion Medical injection every 8 Branch weeks for rheumatoid arthritis. Golimumab Yes [id number] inject U nivers (SIMPONI) 1-04 under the ity o f 50 mg/0.5 15:18: skin. [place] mL 20 Infusion Medical injection every 8 Branch weeks for rheumatoid arthritis. Golimumab Yes [id number] inject U nivers (SIMPONI) 1-04 under the ity o f 50 mg/0.5 15:18: skin. [place] mL 20 Infusion Medical injection every 8 Branch weeks for rheumatoid arthritis. Golimumab Yes [id number] inject U nivers (SIMPONI) 1-04 under the ity o f 50 mg/0.5 15:18: skin. [place] mL 20 Infusion Medical injection every 8 Branch weeks for rheumatoid arthritis. Golimumab Yes [id number] inject U nivers (SIMPONI) 1-04 under the ity o f 50 mg/0.5 15:18: skin. [place] mL 20 Infusion Medical injection every 8 Branch weeks for rheumatoid arthritis. Golimumab Yes [id number] inject U nivers (SIMPONI) 1-04 under the ity o f 50 mg/0.5 15:18: skin. [place] mL 20 Infusion Medical injection every 8 Branch weeks for rheumatoid arthritis. apixaban Yes 5mg Take 5 mg Univ [...] 2 [place] tablet 03 (two) Medical times [place] daily with meals. linagliptin Yes [id number] Take by Univers (TRADUpDownNTA) 1-04 mouth. ity of 5 mg tablet 14:33: [place] [facility] linagliptin Yes [id number] Take by Univers (TRADJENTA) 1-04 mouth. ity of 5 mg tablet 14:33: [place] [facility] apixaban Yes 5mg Take 5 [...] 2 [place] tablet 03 (two) Medical times [place] daily with meals. linagliptin Yes [id number] Take by Univers (TRADUpDownNTA) 1-04 mouth. ity of 5 mg tablet 14:33: Medical Branch apixaban Yes 5mg Take 5 [...] Medical times Branch daily with meals. apixaban 2017-0 Yes 5mg Take 5 mg [...] 2 [place] tablet 03 (two) Medical times [place] daily with meals. linagliptin 2017-0 Yes [id number] Take by Univers (TRADUpDownNTA) 1-04 mouth. ity of 5 mg tablet 14:33: [place] [facility] apixaban 0 Yes 5mg Take 5 mg Univ ers [...] Branch daily with meals. linagliptin 2017-0 Yes [id number] Take by Univers (TRADJENTA) 1-04 mouth. ity [...] 2 [place] tablet 03 (two) Medical times [place] daily with meals. linagliptin 0 Yes [id number] Take by Univers (TRADJENTA) 1-04 mouth. ity of 5 mg tablet 14:33: Medical Branch apixaban 0 Yes 5mg Take 5 mg Univ ers [...] 24 hr 03 Medical tablet Branch carvedilol 0 Yes 12.5mg Take 12.5 Univers (COREG) 1-04 mg by ity of 12.5 mg 14:33: mouth 2 [place] tablet 03 (two) Medical times [place] daily with meals. linagliptin 2016-0 Yes [id number] Take by Univers (TRADJENTA) 1-04 mouth. ity of 5 mg tablet 14:33: Medical Branch apixaban 0 Yes 5mg Take 5 mg Univ ers [...] 2 [place] tablet 03 (two) Medical times [place] daily with meals. linagliptin 2017-0 Yes [id number] Take by Univers (TRADJENTA) 1-04 mouth. ity [...] 2 [place] tablet 03 (two) Medical times [place] daily with meals. linagliptin 2017-0 Yes [id number] Take by Univers (TRADJENTA) 1-04 mouth. ity [...] times Branch daily with meals. linagliptin Yes [id number] Take by Univers (TRADJENTA) 1-04 mouth. ity of 5 mg tablet 14:33: [place] 03 Medical Branch pramipexole Yes [id number] 2mg Take 2 Univers (MIRAPEX) 1 1-04 tablets by [place] y [place] mg tablet 00:00: [place] 00 bed[place] [facility] Branch pramipexole Yes [id number] 2mg Take 2 Univers (MIRAPEX) 1 1-04 tablets by [place] y [place] mg tablet [place]: [place] [facility] pramipexole Yes [id number] 2mg Take 2 Univers (MIRAPEX) 1 1-04 tablets by it y of mg tablet 00:00: [place] bed[place] [facility] pramipexole Yes [id number] 2mg Take 2 Univers (MIRAPEX) 1 1-04 tablets by it y of mg tablet 00:00: [place] bed[place]. [facility] pramipexole Yes [id number] 2mg Take 2 Univers (MIRAPEX) 1 1-04 tablets by it y of mg tablet 00:00: [place] bed[place] [facility] pramipexole Yes [id number] 2mg Take 2 Univers (MIRAPEX) 1 1-04 tablets by it y of mg tablet 00:00: [place] bed[place] [facility] pramipexole Yes [id number] 2mg Take 2 Univers (MIRAPEX) 1 1-04 tablets by it y of mg tablet 00:00: [place] bed[place] [facility] pramipexole Yes [id number] 2mg Take 2 Univers (MIRAPEX) 1 1-04 tablets by it y of mg tablet 00:00: [place] 00 bed[place]. [facility] pramipexole 2017 Yes [id number] 2mg Take 2 Univers (MIRAPEX) 1 1-04 tablets by it y of mg tablet 00:00: [place] bed[place]. [facility] pramipexole 0 Yes [id number] 2mg Take 2 Univers (MIRAPEX) 1 1-04 tablets by it y of mg tablet 00:00: [place] bed[place]. [facility] gabapentin 2015-05 Yes 600mg Take 1 Univ [...] 00 (two) Medical times Branch daily. gabapentin 2015- Yes 600mg Take 1 Univ [...] Medical times Branch daily. glipiZIDE 2015-05 Yes [id number] 10mg Take 1 Un kevan XL 1-16 tablet by ity of (GLUCOTROL 00:00: [place] XL[place] 10 mg 00 (two) Medical 24 hr times Branch tablet daily. glipiZIDE 2015-05 Yes [id number] 10mg Take 1 Un [place] XL 1-16 tablet by ity of (GLUCOTROL 00:00: mouth [place] XL) 10 mg 00 (two) Medical 24 hr times Branch tablet daily. glipiZIDE 2015-05 Yes [id number] 10mg Take 1 Un ke[place] XL 1-16 tablet by ity of (GLUCOTROL 00:00: mouth [place] XL[place] 10 mg 00 (two) Medical 24 hr times Branch tablet daily. glipiZIDE 2015-05 Yes [id number] 10mg Take 1 Un [place] XL 1-16 tablet by ity of (GLUCOTROL 00:00: mouth [place] XL) 10 mg 00 (two) Medical 24 hr times Branch tablet daily. glipiZIDE 2015-05 Yes [id number] 10mg Take 1 Un [place] XL 1-16 tablet by ity of (GLUCOTROL 00:00: mouth [place] XL) 10 mg 00 (two) Medical 24 hr times Branch tablet daily. glipiZIDE 2015-05 Yes [id number] 10mg Take 1 Un [place] XL 1-16 tablet by ity of (GLUCOTROL 00:00: mouth [place] XL) 10 mg 00 (two) Medical 24 hr times Branch tablet daily. glipiZIDE 2015-05 Yes [id number] 10mg Take 1 Un [place] XL 1-16 tablet by ity of (GLUCOTROL 00:00: mouth [place] XL) 10 mg 00 (two) Medical 24 hr times Branch tablet daily. glipiZIDE 2015-05 Yes [id number] 10mg Take 1 Un [place] XL 1-16 tablet by ity of (GLUCOTROL 00:00: mouth [place] XL) 10 mg 00 (two) Medical 24 hr times Branch tablet daily. glipiZIDE 2015-05 Yes [id number] 10mg Take 1 Un [place] XL 1-16 tablet by ity of (GLUCOTROL 00:00: mouth [place] XL) 10 mg 00 (two) Medical 24 hr times Branch tablet daily. glipiZIDE 2015-05 Yes [id number] 10mg Take 1 Un [place] XL 1-16 tablet by ity of (GLUCOTROL 00:00: mouth [place] XL) 10 mg 00 (two) Medical 24 hr times Branch tablet daily. atorvasta 2015-05 Yes [id number] 10mg Take 1 Univers n (LIPITOR) 1-02 tablet by ity of 10 mg 00:00: mouth at [place] tablet 00 bedtime. Medical Branch atorvastati 2015-05 Yes [id number] 10mg Take 1 Univers n (LIPITOR) 1-02 tablet by ity of 10 mg 00:00: mouth at [place] tablet 00 bedtime. Medical Branch atorvastati 2015-05 Yes [id number] 10mg Take 1 Univers n (LIPITOR) 1-02 tablet by ity of 10 mg 00:00: mouth at [place] tablet 00 bedtime. Medical Branch atorvastati 2015-05 Yes [id number] 10mg Take 1 Univers n (LIPITOR) 1-02 tablet by ity of 10 mg 00:00: mouth at [place] tablet 00 bedtime. Medical Branch atorvastati 2015-05 Yes [id number] 10mg Take 1 Univers n (LIPITOR) 1-02 tablet by ity of 10 mg 00:00: mouth at [place] tablet 00 bedtime. Medical Branch atorvastati 2015-05 Yes [id number] 10mg Take 1 Univers n (LIPITOR) 1-02 tablet by ity of 10 mg 00:00: mouth at [place] tablet 00 bedtime. Medical Branch atorvastati 2015-05 Yes [id number] 10mg Take 1 Univers n (LIPITOR) 1-02 tablet by ity of 10 mg 00:00: mouth at [place] tablet 00 bedtime. Medical Branch atorvastati 2015-05 Yes [id number] 10mg Take 1 Univers n (LIPITOR) 1-02 tablet by ity of 10 mg 00:00: mouth at [place] tablet 00 bedtime. Medical Branch atorvastati 2015-05 Yes [id number] 10mg Take 1 Univers n (LIPITOR) 1-02 tablet by ity of 10 mg 00:00: mouth at [place] tablet 00 bedtime. Medical Branch atorvastati 2015-05 Yes [id number] 10mg Take 1 Univers n (LIPITOR) 1-02 tablet by ity of 10 mg 00:00: mouth at [place] tablet 00 bedtime. [facility] Branch Immunizations Ordered Immunization Filled Immunization Date Status Commen ts Source Name Name NORA COVID-19 MRNA 2021-06-10 Completed [facility] VACCINATION 00:00:00 Hospital PFIZER COVID-19 MRNA 2020-07-09 Completed [facility] VACCINATION 00:00:00 Hospital PFIZER COVID-19 MRNA 2020-06-18 Completed Meth odist VACCINATION 00:00:00 Hospital Pneumococcal 2020-04-29 Completed Worship Polysaccharide 00:00:00 Hospital Zoster 2020-04-29 Completed [facility] 00:00:00 Hospital Pneumococcal 2019-05-13 Completed [facility]orship Conjugate 13-Valent 00:00:00 Hospi true FLUCELVAX QUAD PF 2019-03-[address] 00:00:00 [facility] FLUZONE HIGH-DOSE PF 2017-03-09 Completed Meth odist 00:00:00 [facility] Influenza Trivalent 2016-05-21 Completed Metho dist 00:00:00 Hospital Influenza, 2016-02-03 Completed Worship Unspecified 00:00:00 [facility] Pneumococcal 2016-02-03 Completed Worship Conjugate 13-Valent 00:00:00 Hospi true Tdap 2016-02-03 Completed Worship 00:00:00 [facility] Influenza Virus 2016-02-03 Completed Universit y of Vaccine 00:00:00 [facility] Pneumococcal 13 2016-02-03 Completed Universit y of Conjugate, PCV13 00:00:00 [facility] dical (Prevnar 13) Branch TDAP 2016-02-03 Completed University of 00:00:00 [facility] Influenza Virus 2016-02-03 Completed Universit y of Vaccine 00:00:00 [facility] Pneumococcal 13 2016-02-03 Completed Universit y of Conjugate, PCV13 00:00:00 [facility] dical (Prevnar 13) Branch TDAP 2016-02-03 Completed University of 00:00:00 [facility] Influenza Virus 2016-02-03 Completed Universit y of Vaccine 00:00:00 [facility] Pneumococcal 13 2016-02-03 Completed Universit y of Conjugate, PCV13 00:00:00 [place] [facility] (Prevnar 13) Branch AP 2016-02-03 Completed University of 00:00:00 [facility] Influenza Virus 2016-02-03 Completed Universit y of Vaccine 00:00:00 [facility] Pneumococcal 13 2016-02-03 Completed Universit y of Conjugate, PCV13 00:00:00 [facility] dical (Prevnar 13) Branch AP 2016-02-03 Completed University of 00:00:00 [facility] Influenza Virus 2016-02-03 Completed Universit y of Vaccine 00:00:00 [facility] Pneumococcal 13 2016-02-03 Completed Universit y of Conjugate, PCV13 00:00:00 [facility] dical (Prevnar 13) Branch [facility] 2016-02-03 Completed University of 00:00:00 [facility] Influenza Virus 2016-02-03 Completed Universit y of Vaccine 00:00:00 [facility] Pneumococcal 13 2016-02-03 Completed Universit y of Conjugate, PCV13 00:00:00 [facility] dical (Prevnar 13) Branch [facility] 2016-02-03 Completed University of 00:00:00 [facility] Influenza Virus 2016-02-03 Completed Universit y of Vaccine 00:00:00 [facility] Pneumococcal 13 2016-02-03 Completed Universit y of Conjugate, PCV13 00:00:00 [facility] dical (Prevnar 13) Branch [facility] 2016-02-03 Completed University of 00:00:00 [facility] Influenza Virus 2016-02-03 Completed Universit y of Vaccine 00:00:00 [facility] Pneumococcal 13 2016-02-03 Completed Universit y of Conjugate, PCV13 00:00:00 [facility] dical (Prevnar 13) Branch [facility] 2016-02-03 Completed University of 00:00:00 [facility] Influenza Virus 2016-02-03 Completed Universit y of Vaccine 00:00:00 [facility] Pneumococcal 13 2016-02-03 Completed Universit y of Conjugate, PCV13 00:00:00 [facility] dical (Prevnar 13) Branch [facility] 2016-02-03 Completed University of 00:00:00 [facility] Influenza Virus 2016-02-03 Completed Universit y of Vaccine 00:00:00 [facility] Pneumococcal 13 2016-02-03 Completed Universit y of Conjugate, PCV13 00:00:00 [facility] dical (Prevnar 13) Branch [facility] 2016-02-03 Completed University of 00:00:00 [facility] Influenza, 2015-01-05 Completed Worship Unspecified 00:00:00 Hospital Pneumococcal 2015-01-05 Completed Worship Conjugate 13-Valent 00:00:00 Hospi true Td 2015-01-05 Completed Worship 00:00:00 [facility] Influenza Virus 2015-01-05 Completed Universit y of Vaccine 00:00:00 [facility] Pneumococcal 13 2015-01-05 Completed Universit y of Conjugate, PCV13 00:00:00 [facility] dical (Prevnar 13) Branch Tetanus/Diptheria 2015-01-05 Completed Univers ity of 00:00:00 [facility] Influenza Virus 2015-01-05 Completed Universit y of Vaccine 00:00:00 [facility] Pneumococcal 13 2015-01-05 Completed Universit y of Conjugate, PCV13 00:00:00 [facility] dical (Prevnar 13) Branch Tetanus/Diptheria 2015-01-05 Completed Univers ity of 00:00:00 [facility] Influenza Virus 2015-01-05 Completed Universit y of Vaccine 00:00:00 [facility] Pneumococcal 13 2015-01-05 Completed Universit y of Conjugate, PCV13 00:00:00 [facility] dical (Prevnar 13) Branch Tetanus/Diptheria 2015-01-05 Completed Univers ity of 00:00:00 [facility] Influenza Virus 2015-01-05 Completed Universit y of Vaccine 00:00:00 [facility] Pneumococcal 13 2015-01-05 Completed Universit y of Conjugate, PCV13 00:00:00 [facility] dical (Prevnar 13) Branch Tetanus/Diptheria 2015-01-05 Completed Univers ity of 00:00:00 [facility] Influenza Virus 2015-01-05 Completed Universit y of Vaccine 00:00:00 [facility] Pneumococcal 13 2015-01-05 Completed Universit y of Conjugate, PCV13 00:00:00 [facility] dical (Prevnar 13) Branch Tetanus/Diptheria 2015-01-05 Completed Univers ity of 00:00:00 [facility] Influenza Virus 2015-01-05 Completed Universit y of Vaccine 00:00:00 [facility] Pneumococcal 13 2015-01-05 Completed Universit y of Conjugate, PCV13 00:00:00 [facility] dical (Prevnar 13) Branch Tetanus/Diptheria 2015-01-05 Completed Univers ity of 00:00:00 [facility] Influenza Virus 2015-01-05 Completed Universit y of Vaccine 00:00:00 [facility] Pneumococcal 13 2015-01-05 Completed Universit y of Conjugate, PCV13 00:00:00 [facility] dical (Prevnar 13) Branch Tetanus/Diptheria 2015-01-05 Completed Univers ity of 00:00:00 [facility] Influenza Virus 2015-01-05 Completed Universit y of Vaccine 00:00:00 [facility] Pneumococcal 13 2015-01-05 Completed Universit y of Conjugate, PCV13 00:00:00 [facility] dical (Prevnar 13) Branch Tetanus/Diptheria 2015-01-05 Completed Univers ity of 00:00:00 [facility] Influenza Virus 2015-01-05 Completed Universit y of Vaccine 00:00:00 [facility] Pneumococcal 13 2015-01-05 Completed Universit y of Conjugate, PCV13 00:00:00 [facility] dical (Prevnar 13) Branch Tetanus/Diptheria 2015-01-05 Completed Univers ity of 00:00:00 [facility] Influenza Virus 2015-01-05 Completed Universit y of Vaccine 00:00:00 [facility] Pneumococcal 13 2015-01-05 Completed Universit y of Conjugate, PCV13 00:00:00 [facility] dical (Prevnar 13) Branch Tetanus/Diptheria 2015-01-05 Completed Univers ity of 00:00:00 [facility] Pneumococcal 2013-05-21 Completed Worship Conjugate 00:00:00 Hospital Tdap 2013-05-21 Completed [facility]orship 00:00:00 Hospital H1N1 All Forms 2009-04-20 Completed [facility]orship 00:00:00 Hospital Vital Signs Vital Name Observation Time Observation Value Comments Source HEIGHT 2022-01-14 10:00:00 162.6 cm WEIGHT 2022-01-14 10:00:00 68.04 kg HEIGHT 2022-01-14 10:00:00 162.6 cm WEIGHT 2022-01-14 10:00:00 68.04 kg HEIGHT 2022-01-14 10:00:00 162.6 cm WEIGHT 2022-01-14 10:00:00 68.04 kg Systolic blood 2022-01-18 12:00:00 117 mm[Hg] RAYMOND [facility] Diastolic blood 2022-01-18 12:00:00 51 mm[Hg] [facility] Heart rate 2022-01-18 12:00:00 80 /min [facility] Body temperature 2022-01-18 12:00:00 36.78 Mena [facility] Respiratory rate 2022-01-18 12:00:00 18 /min [facility] Oxygen saturation in 2022-01-18 12:00:00 100 /min [facility] Arterial blood by Medical Ce nter Pulse oximetry Body height 2022-01-14 10:00:00 162.6 cm [facility] Body weight 2022-01-14 10:00:00 68.04 kg [facility] BMI 2022-01-14 10:00:00 25.75 kg/m2 [facility] Systolic blood 2021-09-16 23:24:00 145 mm[Hg] [facility] pressure Diastolic blood 2021-09-16 23:24:00 78 mm[Hg] [facility] pressure Heart rate 2021-09-16 23:00:00 80 /min [facility] Respiratory rate 2021-09-16 23:00:00 19 /min [facility] Body temperature 2021-09-16 19:25:00 36.28 Mena [facility] Oxygen saturation in 2021-09-16 15:57:32 98 /min [facility] Arterial blood by Pulse oximetry Body height 2021-09-07 12:58:00 162.6 cm [facility] Body weight 2021-09-07 12:58:00 67.3 kg [facility] BMI 2021-09-07 12:58:00 25.47 kg/m2 [facility] Procedures Procedure Date / Time Performing Source Performed Clinician EXTERNAL PROVIDER RECORDS 2022-04-01 Doctor Univer sity of 06:01:00 Unassigned, No [place] [facility] Name Branch POCT-GLUCOSE METER 2022-01-18 Annalee Bey [facility] 12:10:00 [facility] HEMODIALYSIS INPATIENT 2022-01-18 Miles Quinones [facility] 07:52:23 [facility] BASIC METABOLIC PANEL 2022-01-18 Mauro Mendoza [facility] 06:09:00 Medical Center POCT-GLUCOSE METER 2022-01-17 Reji, Mauro [facility] 19:46:00 Medical Center POCT-GLUCOSE METER 2022-01-17 Reji, Mauro [facility] 17:06:00 Medical Center POCT-GLUCOSE METER 2022-01-17 Reji, Mauro [facility] 12:13:00 Medical Center POCT-GLUCOSE METER 2022-01-17 Reji, Mauro [facility] 08:29:00 Medical Center BASIC METABOLIC PANEL 2022-01-17 Reji, [facility]uro [facility] 03:[facility] POCT-GLUCOSE METER 2022-01-16 Reji, Mauro [facility] 20:16:00 [facility] POCT-GLUCOSE METER 2022-01-16 Reji, Mauro [facility] 15:46:00 Medical Center POCT-GLUCOSE METER 2022-01-16 [facility], Mauro [facility] 11:46:00 Medical Center POCT-GLUCOSE METER 2022-01-16 [facility], Mauro [facility] 07:47:00 Medical Center POCT-GLUCOSE METER 2022-01-15 Reji, Mauro [facility] 20:13:00 [facility] Center POCT-GLUCOSE METER 2022-01-15 Reji, Mauro [facility] 17:54:00 [facility] Center POCT-GLUCOSE METER 2022-01-15 [facility], Mauro [facility] 12:31:00 [facility] Center HEMODIALYSIS INPATIENT 2022-01-15 Lexie, med [facility] 10:06:42 [facility] POCT-GLUCOSE METER 2022-01-15 Reji, Mauro [facility] 07:32:00 [facility] Center BASIC METABOLIC PANEL 2022-01-15 Reji, Mauro [facility] 03:58:00 [facility] POCT-GLUCOSE METER 2022-01-14 Reji, Mauro [facility] 20:42:00 Medical Center POCT-GLUCOSE METER 2022-01-14 [facility], Mauro [facility] 15:38:00 [facility] SARS-COV2/RT-PCR ([facility]) 2022-01-14 Reji, Jean-Pierre cabrera [facility] 14:57:00 Medical Center XR CHEST 1 VIEW PORTABLE / BEDSIDE 2022-01-14 Reji, Jean-Pierre cabrera [facility] 14:38:00 [facility] POCT-GLUCOSE METER 2022-01-14 [facility], Mauro [facility] 12:02:00 [facility] IR CENTRAL VENOUS CATHETER 2022-01-14 [facility], [facility] PLACEMENT (JUGULAR OR FEMORAL) 11:14:00 [facility] POCT-GLUCOSE METER 2022-01-14Reji, Mauro [facility] 08:24:00 [facility] CBC (HEMOGRAM ONLY) 2022-01-14 [facility], Mauro [facility] 04:11:00 [facility] BASIC METABOLIC PANEL 2022-01-14 [facility], [facility] 04:11:00 [facility] POCT-GLUCOSE METER 2022-01-13 [facility], Mauro [facility] 19:39:00 [facility] POCT-GLUCOSE METER 2022-01-13 [facility], Mauro [facility] 16:37:00 [facility] POCT-GLUCOSE METER 2022-01-13 [facility], Mauro [facility] 13:51:00 [facility] BLOOD GAS, ARTERIAL 2022-01-13 [facility], Mauro [facility] 08:41:00 [facility] POCT-GLUCOSE METER 2022-01-13 [facility], Mauro [facility] 08:25:[address] [facility] [address] BRAIN WITHOUT IV CONTRAST 2022-01-13Reji, Mauro [facility] 07:50:00 [facility] CBC W/PLT COUNT & AUTO 2022-01-13 [facility], [facility]uro [facility] DIFFERENTIAL 07:29:00 [facility] CBC W/PLT COUNT & AUTO 2022-01-13 [facility], Mauro [facility] DIFFERENTIAL 07:29:00 [facility] COMPREHENSIVE METABOLIC PANEL 2022-01-13 [facility], [facility] 07:29:00 [facility] TROPONIN I 2022-01-13 [facility], Mauro [facility] 07:29:00 [facility] TSH/FREE T4 IF INDICATED 2022-01-13 [facility], Mauro [facility] 07:29:00 [facility] POCT-GLUCOSE METER 2022-01-13 [facility], Mauro [facility] 07:04:00 Medical Center POCT-GLUCOSE METER 2022-01-13 Reji, Mauro [facility] 06:21:00 Medical Center POCT-GLUCOSE METER 2022-01-12 Reji, Mauro [facility] 20:53:00 [facility] Center POCT-GLUCOSE METER 2022-01-12 Reji, Mauro [facility] 19:20:00 [facility] Center POCT-GLUCOSE METER 2022-01-12 Reji, Mauro [facility] 18:50:00 [facility] POCT-GLUCOSE METER 2022-01-12 Reji, Mauro [facility] 17:58:00 [facility] IR TUNNELED CATHETER INSERTION 2022-01-12 Lexie, Rufina [facility] 16:30:00 [facility] POCT-GLUCOSE METER 2022-01-12 Reji, Mauro [facility] 12:08:00 [facility] POCT-GLUCOSE METER 2022-01-[address] [facility], Annalee Montoya [facility] 08:49:00 [facility] CBC W/PLT COUNT & AUTO 2022-01-[address] [facility], Annalee Montoya [facility] DIFFERENTIAL 05:39:00 [facility] BASIC METABOLIC PANEL 2022-01-[address] [facility], Annalee Montoya [facility] 05:39:00 [facility] Center MAGNESIUM 2022-01-12 [facility], Annalee Montoya [facility] 05:39:00 [facility] PHOSPHORUS 2022-01-[address] [facility], Annalee Montoya [facility] 05:39:00 [facility] PROTHROMBIN TIME/INR 2022-01-[address] [facility], Annalee Montoya [facility] 05:39:00 [facility] APTT 2022-01-[address] [facility], Annalee Montoya [facility] 05:39:00 [facility] CBC W/PLT COUNT & AUTO 2022-01-[address] [facility], Annalee Montoya [facility] DIFFERENTIAL 05:39:00 [facility] (MANUAL DIFFERENTIAL) 2022-01-12 [facility], Annalee Montoya [facility] 05:39:00 [facility] Center POCT-GLUCOSE METER 2022-01-11 Shieh, Annalee Montoya [facility] 19:49:00 [facility] POCT-GLUCOSE METER 2022-01-11 [facility], Annalee Montoya [facility] 17:57:00 [facility] POCT-GLUCOSE METER 2022-01-11 Shieh, Annalee C [facility] 12:37:00 [facility] HEMODIALYSIS INPATIENT 2022-01-[address] [facility] 12:29:37 [facility] POCT-GLUCOSE METER 2022-01-11 Shieh, Annalee Montoya [facility] 07:49:00 [facility] POCT-GLUCOSE METER 2022-01-10 Shieh, Annalee C [facility] 21:16:00 [facility] POCT-GLUCOSE METER 2022-01-10 Shieh, Annalee C [facility] 15:24:00 [facility] IR TUNNEL CATHETER EXCHANGE 2022-01-[address] [facility] 11:23:00 [facility] POCT-GLUCOSE METER 2022-01-10 Shieh, Annalee Montoya [facility] 11:21:00 [facility] CBC W/PLT COUNT & AUTO 2022-01-10 Shieh, Annalee C [facility] DIFFERENTIAL 04:13:00 [facility] BASIC METABOLIC PANEL 2022-01-10 Shieh, Annalee C [facility] 04:13:00 [facility] Center MAGNESIUM 2022-01-10 Shieh, Annalee C [facility] 04:13:00 [facility] Center PHOSPHORUS 2022-01-10 Shieh, Annalee C [facility] 04:13:00 [facility] APTT 2022-01-[address] [facility] 04:13:00 [facility] CBC W/PLT COUNT & AUTO 2022-01-10 Shieh, Annalee C [facility] DIFFERENTIAL 04:13:00 [facility] POCT-GLUCOSE METER 2022-01-09 Shieh, Annalee C [facility] 21:15:00 [facility] Center APTT 2022-01-09 Shieh, Annalee C [facility] 19:08:00 [facility] POCT-GLUCOSE METER 2022-01-09 Shieh, Annalee C [facility] 17:02:00 [facility] POCT-GLUCOSE METER 2022-01-09 Shieh, Annalee C [facility] 11:22:00 [facility] Center APTT 2022-01-09 Shieh, Annalee C [facility] 09:44:00 [facility] POCT-GLUCOSE METER 2022-01-09 Shieh, Annalee Montoya [facility] 07:19:00 [facility] POCT-GLUCOSE METER 2022-01-09 Shieh, Annalee Montoya [facility] 05:05:00 [facility] CBC W/PLT COUNT & AUTO 2022-01-09 Shieh, Annalee Jan [facility] DIFFERENTIAL 04:57:00 [facility] BASIC METABOLIC PANEL 2022-01-09 Shieh, Annalee Montoya [facility] 04:57:00 [facility] MAGNESIUM 2022-01-09 Shieh, Annalee Jan [facility] 04:57:00 [facility] PHOSPHORUS 2022-01-09 Shieh, Annalee Jan [facility] 04:57:00 [facility] CBC W/PLT COUNT & AUTO 2022-01-09 Shieh, Annalee Montoya [facility] DIFFERENTIAL 04:57:00 [facility] APTT 2022-01-09 Shieh, Annalee Montoya [facility] 00:34:00 [facility] POCT-GLUCOSE METER 2022-01-08 Shieh, Annalee Montoya [facility] 16:49:00 [facility] APTT 2022-01-08 Shieh, Annalee Montoya [facility] 16:13:00 [facility] HEMODIALYSIS INPATIENT 2022-01-08 Lexie, Ahmed [facility] 15:47:52 [facility] HEPATITIS B SURFACE ANTIGEN 2022-01-08 Lexie, Ahmed [facility] 15:40:00 [facility] HEPATITIS B SURFACE ANTIBODY 2022-01-08 Lexie, Ahmed [facility] 15:40:00 [facility] POCT-GLUCOSE METER 2022-01-08 Shieh, Annalee Jan [facility] 12:18:00 [facility] POCT-GLUCOSE METER 2022-01-08 Shieh, Annalee Montoya [facility] 07:59:00 [facility] CBC W/PLT COUNT & AUTO 2022-01-08 Shieh, Annalee Montoya [facility] DIFFERENTIAL 05:27:00 [facility] BASIC METABOLIC PANEL 2022-01-08 Shieh, Annalee Montoya [facility] 05:27:00 [facility] MAGNESIUM 2022-01-08 Shieh, Annalee Montoya [facility] 05:27:00 [facility] Center PHOSPHORUS 2022-01-[address] [facility] 05:27:00 [facility] HEMOGLOBIN A1C 2022-01-[address] [facility] 05:27:00 [facility] CBC W/PLT COUNT & AUTO 2022-01-[address] [facility] DIFFERENTIAL 05:27:00 [facility] Center APTT 2022-01-[address] [facility] 05:26:00 [facility] Center POCT-GLUCOSE METER 2022-01-[address] [facility] 21:01:00 [facility] Center APTT 2022-01-[address] [facility] 21:00:00 [facility] CARDIAC CATH REPORT - SCAN 2022-01-07 Provider, Default [facility] 00:00:00 Scanning [facility] EKG-SCANNED 2022-01-07 Provider, Default [facility] 00:00:00 Scanning [facility] HEMODIALYSIS 2021-09-16 Marycarmen Matson 20:36:27 [facility] POC GLUCOSE 2021-09-16 Al-Lahiq, Maha [facility] 15:59:00 Hospital POC GLUCOSE 2021-09-16 Avery-Lahiq, Corrine [facility] 11:10:00 Hospital POC GLUCOSE 2021-09-16 Avery-Lahiq, Corrine [facility] 01:24:00 Hospital POC GLUCOSE 2021-09-15 Al-Lahiq, Maha [facility] 20:54:00 Hospital POC GLUCOSE 2021-09-15 Avery-Lahiq, Maha [facility] 16:27:00 Hospital POC GLUCOSE 2021-09-15 Al-Lahiq, Whita [facility] 12:04:00 Hospital POC GLUCOSE 2021-09-15 Al-Lahiq, Maha [facility] 11:16:00 Hospital POC GLUCOSE 2021-09-15 Al-Lahiq, Maha [facility] 01:21:00 Hospital POC GLUCOSE 2021-09-14 Al-Lahiq, Maha [facility] 21:57:00 Hospital POC GLUCOSE 2021-09-14 Al-Lahiq, Maha [facility] 17:17:00 Hospital IR TUNNELED DIALYSIS CATHETER 2021-09-14 Michoacano Owens thodist REPLACEMENT/EXCHANGE 13:59:03 [facility] HEMODIALYSIS 2021-09-14 Marycarmen Matson 12:42:40 [facility] POC GLUCOSE 2021-09-14 Corrine Osuna 11:19:00 [facility] BASIC METABOLIC PANEL 2021-09-14 Marycarmen Matson 09:34:00 [facility] ESTIMATED GFR 2021-09-14 Marycarmen Matson 09:34:00 [facility] ZZCOVID-19 ANTI-SPIKE IGG ANTIBODY 2021-09-14 Michoacano Owens TITER 03:25:00 [facility] TYPE AND SCREEN 2021-09-14 Michoacano Owens 03:25:00 [facility] ZZCOVID-19 SEROLOGY PATIENT 2021-09-14 Michoacano Owens Meth odist SURVEILLANCE 03:25:00 [facility] POC GLUCOSE 2021-09-14 Corrine Osuna 01:33:00 Hospital POC GLUCOSE 2021-09-13 Corrine Osuna 23:43:00 Hospital SURGICAL PATHOLOGY REQUEST 2021-09-13 Corrine Osuna dist 20:11:00 Hospital ESOPHAGOGASTRODUODENOSCOPY (EGD) 2021-09-13 Marycarmen Lopez 19:58:00 [facility] POC GLUCOSE 2021-09-13 Corrine Osuna 17:23:00 Hospital POC GLUCOSE 2021-09-13 Corrine Osuna 11:26:00 [facility] BASIC METABOLIC PANEL 2021-09-13 Marycarmen Matson 10:25:00 [facility] CBC WITH PLATELET AND DIFFERENTIAL 2021-09-13 Whit Osuna 10:25:00 Hospital PARTIAL THROMBOPLASTIN TIME (PTT) 2021-09-13 Corrine Osuna 10:25:00 [facility] ESTIMATED GFR 2021-09-13 Marycarmen Matson 10:25:00 [facility] PROTHROMBIN TIME WITH INR 2021-09-13 Corrine Osuna ist 10:25:00 Hospital POC GLUCOSE 2021-09-13 Avery-Corrine Dozier 00:48:00 Hospital ECG 12-LEAD 2021-09-12 Marycarmen Lopez 23:22:14 [facility] POC GLUCOSE 2021-09-12 Al-Corrine Dozier 22:53:00 Hospital POC GLUCOSE 2021-09-12 Al-Corrine Dozier 21:49:00 Hospital POC GLUCOSE 2021-09-12 Avery-Corrine Dozier 16:57:00 Hospital POC GLUCOSE 2021-09-12 Al-Corrine Dozier 11:26:00 Hospital POC GLUCOSE 2021-09-12 Avery-Corrine Dozier 11:01:00 [facility] BASIC METABOLIC PANEL 2021-09-12 Marycarmen Matson 09:15:00 [facility] ESTIMATED GFR 2021-09-12 Marycarmen Matson 09:15:00 [facility] HEMODIALYSIS 2021-09-12 Marycarmen Matson 02:06:24 [facility] POC GLUCOSE 2021-09-12 Avery-Corrine Dozier 01:05:00 Hospital POC GLUCOSE 2021-09-11 Corrine Osuna 21:53:00 Hospital POC GLUCOSE 2021-09-11 Avery-Corrine Dozier 16:41:00 Hospital HEMODIALYSIS 2021-09-11 Marycarmen Matson 15:53:24 [facility] POC GLUCOSE 2021-09-11 Corrine Osuna 11:14:00 [facility] [place] [id number] ANTI-SPIKE IGG ANTIBODY 2021-09-11 Whit Osuna TITER 09:40:00 Hospital BASIC METABOLIC PANEL 2021-09-11 Marycarmen Matson 09:40:00 [facility] HEMOGLOBIN A1C 2021-09-11 Corrine Osuna 09:40:00 [place] [id number] SEROLOGY PATIENT 2021-09-11 Corrine Osuna Meth odist SURVEILLANCE 09:40:00 Hospital CBC WITH PLATELET AND DIFFERENTIAL 2021-09-11 Al-Whit Dozier Worship 09:40:00 Hospital ESTIMATED GFR 2021-09-11 Marycarmen Matson 09:40:00 [facility] POC GLUCOSE 2021-09-11 Al-Lahiq, Corrine Worship 00:39:00 Hospital POC GLUCOSE 2021-09-10 Al-Lahiq, Corrine [facility] 21:14:00 Hospital CORTISOL LEVEL, AM 2021-09-10 Al-Lahiq, Corrine Worship 16:58:00 Hospital POC GLUCOSE 2021-09-10 Al-Lahiq, Corrine [facility]orship 15:59:00 Hospital POC GLUCOSE 2021-09-10 Al-Lahiq, Corrine Worship 11:26:00 Hospital BASIC METABOLIC PANEL 2021-09-10 Dano Worship 09:55:00 [facility] ESTIMATED GFR 2021-09-10 Marycarmen Matson 09:55:00 [facility] POC GLUCOSE 2021-09-10 Al-Lahiq, Corrine Worship 00:18:00 Hospital POC GLUCOSE 2021-09-09 Al-Lahiq, Corrine Worship 21:28:00 Hospital POC GLUCOSE 2021-09-09 Al-Lahiq, Corrine Worship 16:28:[address] HEAD WO CONTRAST 2021-09-09 Avery-Corrine Dozier 14:48:37 Hospital HEMODIALYSIS 2021-09-09 Marycarmen Matson 14:08:47 [facility] POC GLUCOSE 2021-09-09 Al-Lahiq, Corrine Worship 11:30:00 Hospital BASIC METABOLIC PANEL 2021-09-09 Dano Worship 10:45:00 [facility] ESTIMATED GFR 2021-09-09 Marycarmen Matson 10:45:00 [facility] POC GLUCOSE 2021-09-09 Al-Lahiq, Corrine Worship 01:10:00 Hospital POC GLUCOSE 2021-09-08 Al-Lahiq, Corrine [facility]orship 21:16:00 Hospital POC GLUCOSE 2021-09-08 Al-LaCorrine flores Worship 16:10:00 Hospital BASIC METABOLIC PANEL 2021-09-08 Haja Fraser [facility] 09:27:00 Hospital MAGNESIUM LEVEL 2021-09-08 Haja Fraser 09:27:00 Hospital ESTIMATED GFR 2021-09-08 Haja Fraser [facility] 09:27:00 Hospital GASTROINTESTINAL PANEL 2021-09-08 Marley Cronin 02:15:00 Hospital POC GLUCOSE 2021-09-08 Avery-Corrine Dozier Worship 01:30:00 Hospital BASIC METABOLIC PANEL 2021-09-07 Al-Kaitlynq, Mahlaura Worship 18:00:00 Hospital ESTIMATED GFR 2021-09-07 Al-Kaitlynq, Corrine [facility] 18:00:00 Hospital HEPATITIS B SURFACE ANTIGEN 2021-09-07 Florenceaharkjagdish, Meth odist 18:00:00 [facility] HEPATITIS B SURFACE AB, 2021-09-07 Florenceahshania, Methodis t QUANTITATIVE 18:00:00 [facility] XR CHEST 1 VW PORTABLE 2021-09-07 Avery-Corrine Dozier Worship 16:47:43 Hospital XR ABDOMEN 1 VW 2021-09-07 Avery-Corrine Dozier Worship 16:47:22 Hospital HEMODIALYSIS 2021-09-07 Haja Fraser [facility] 16:16:15 Hospital POC GLUCOSE 2021-09-07 Avery-Corrine Dozier Worship 11:07:00 Hospital TROPONIN T 2021-09-07 Trinidad Menard Worship 03:35:00 [facility] TROPONIN T 2021-09-07 Marley Cronin 00:00:00 Hospital RESPIRATORY PATHOGEN PANEL WITH 2021-09-06 Marley Cronin COVID-19 RT-PCR 23:59:[address] ABDOMEN PELVIS WO CONTRAST 2021-09-06 Marley Cronin thodist 22:16:48 Hospital ECG ED PRELIMINARY INTERPRETATION 2021-09-06 Kimmy Cronin 21:23:51 Hospital ECG 12-LEAD 2021-09-06 Marley Cronin 20:48:53 Hospital CBC WITH PLATELET AND DIFFERENTIAL 2021-09-06 Alecia Cronin Worship 20:09:00 Hospital COMPREHENSIVE METABOLIC PANEL 2021-09-06 Marley Cronin thodist 20:09:00 Hospital ESTIMATED GFR 2021-09-06 Marley Cronin 20:09:00 Hospital MAGNESIUM LEVEL 2021-09-06 Marley Cronin 20:09:00 Hospital TROPONIN T 2021-09-06 Marley Cronin 20:09:00 Hospital PHOSPHORUS LEVEL 2021-09-06 Marley Cronin 20:09:00 Hospital POC GLUCOSE 2021-08-13 KohlnhoKatelynn pereyraist 16:22:00 [facility] POC GLUCOSE 2021-08-13 Kohlnhofer, Worship 11:17:00 [facility] XR CHEST 1 VW PORTABLE 2021-08-13 Josemanuel Vences 11:13:27 [facility] BASIC METABOLIC PANEL 2021-08-13 Josemanuel Vences 10:26:00 Hospital ESTIMATED GFR 2021-08-13 Josemanuel Vences 10:26:00 [facility] POC GLUCOSE 2021-08-13 KohlnhoMarycarmen pereyra 00:38:00 [facility] HEMODIALYSIS 2021-08-13 Josemanuel Vences 00:09:24 Hospital [place] AN ELECTIVE ENDOTRACHEAL AIRWAY 2021-08-12 Leodan Rebolledo 23:45:00 Hospital INSERTION, CATHETER, DIALYSIS, 2021-08-12 Josemanuel Vences ethodist PERITONEAL, LAPAROSCOPIC 23:10:00 Hospita l POC GLUCOSE 2021-08-12 Kohlnhohafsa Worship 20:36:00 [facility] COVID-19 QUALITATIVE RT-PCR 2021-08-12 Ti Post 17:35:00 [facility] POC GLUCOSE 2021-08-12 Kohlnhofer Worship 15:58:00 [facility] POC GLUCOSE 2021-08-12 Kohlnhofer Worship 11:07:00 [facility] ECG 12-LEAD 2021-08-12 Marycarmen Mcdonald 11:02:39 [facility] 2021-08-12 Marycarmen Matson 09:47:00 [facility] ESTIMATED GFR 2021-08-12 Marycarmen Matson 09:47:00 [facility] POC GLUCOSE 2021-08-12 Kohlnhofer, Worship 00:51:00 [facility] POC GLUCOSE 2021-08-11 Kohlnhofer, Worship 20:44:00 [facility] POC GLUCOSE 2021-08-11 Kohlnhofer, Worship 16:14:00 [facility] POC GLUCOSE 2021-08-11 Kohlnhofer, Worship 11:06:00 [facility] POC GLUCOSE 2021-08-11 Kohlnhofer, Worship 00:30:00 [facility] POC GLUCOSE 2021-08-10 Kohlnhofer, Worship 20:48:00 [facility] POC GLUCOSE 2021-08-10 Kohlnhofer, Worship 11:07:00 [facility] POC GLUCOSE 2021-08-10 Kohlnhofer, Worship 00:46:00 [facility] POC GLUCOSE 2021-08-09 Kohlnhofer, Worship 21:37:00 [facility] HEMODIALYSIS 2021-08-09 FlorenceaharkMarycarmen dubon 17:13:01 [facility] POC GLUCOSE 2021-08-09 RupalilnhoMarycarmen pereyra 16:55:00 [facility] POC GLUCOSE 2021-08-09 Tammy Dumont 11:19:00 [facility] BASIC METABOLIC PANEL 2021-08-09 FlorenceMarycarmen jauregui 10:52:00 [facility] ESTIMATED GFR 2021-08-09 Marycarmen Matson 10:52:00 [facility] PROCALCITONIN 2021-08-09 Hyacinth Guthrie 02:51:00 [facility] POC GLUCOSE 2021-08-09 Tammy Dumont 00:26:00 [facility] POC GLUCOSE 2021-08-08 Tammy Dumont 21:18:00 [facility] POC GLUCOSE 2021-08-08 Tammy Dumont 19:34:00 [facility] POC GLUCOSE 2021-08-08 Tammy Dumont 10:58:00 [facility] DIGOXIN LEVEL 2021-08-08 Ritu Graves 10:46:00 [facility] BASIC METABOLIC PANEL 2021-08-08 Marycarmen Matson 10:46:00 [facility] ESTIMATED GFR 2021-08-08 Marycarmen Matson 10:46:00 [facility] POC GLUCOSE 2021-08-08 Tammy Dumont 02:06:00 [facility] POC GLUCOSE 2021-08-07 Tammy Dumont 23:09:00 [facility] HEMODIALYSIS 2021-08-07 Marycarmen Matson 20:13:07 [facility] POC GLUCOSE 2021-08-07 Tammy Dumont 15:50:00 [facility] POC GLUCOSE 2021-08-07 Tammy Dumont 11:19:00 [facility] CBC WITH PLATELET AND DIFFERENTIAL 2021-08-07 Steven Lucero 11:15:00 [facility] COMPREHENSIVE METABOLIC PANEL 2021-08-07 Rupali Lucero 11:15:00 [facility] ESTIMATED GFR 2021-08-07 Rupali Lucero 11:15:00 [facility] POC GLUCOSE 2021-08-07 Tammy Dumont 00:58:00 [facility] HEMODIALYSIS 2021-08-06 Mraycarmen Matson 21:36:17 [facility] POC GLUCOSE 2021-08-06 Mougouris, Taso Worship 21:21:00 Hospital POC GLUCOSE 2021-08-06 Mougouris, Taso Worship 15:39:00 [facility] BASIC METABOLIC PANEL 2021-08-06 Marycarmen Matson 11:19:00 [facility] ESTIMATED GFR 2021-08-06 Marycarmen Matson 11:19:00 [facility] POC GLUCOSE 2021-08-06 Mougouris, Taso Worship 09:09:00 Hospital POC GLUCOSE 2021-08-06 Mougouris, Taso Worship 04:44:00 Hospital HEMODIALYSIS 2021-08-06 Dano Worship 02:34:43 [facility] POC GLUCOSE 2021-08-06 Mougouris, Taso Worship 01:09:00 Hospital XR CHEST 1 VW PORTABLE 2021-08-05 Joanna Leiva 23:40:00 Hospital POC GLUCOSE 2021-08-05 Mougouris, Taso Worship 21:24:00 Hospital [place] < 1 HOUR 2021-08-05 Joanna Leiva 21:05:00 Hospital [place] AN ELECTIVE SUPRAGLOTTIC AIRWAY 2021-08-05 Grazyna Martinez 20:19:00 [facility] INSERTION, CATHETER, CENTRAL 2021-08-05 Joanna Leiva VENOUS, TUNNELED, FOR HEMODIALYSIS 20:13:00 Hospital TYPE AND SCREEN 2021-08-05 Sincere, Ti UJeannine Conroy 20:09:00 Hospital POC GLUCOSE 2021-08-05 Tasneem Ellison 15:43:00 Hospital ECG 12-LEAD 2021-08-05 Sincere, Ti Conroy 14:07:10 Hospital POC GLUCOSE 2021-08-05 Marycarmen Ayers 11:25:00 [facility] XR CHEST 1 VW PORTABLE 2021-08-05 Sincere, Ti Mitchell t 11:17:10 Hospital CBC WITH PLATELET AND DIFFERENTIAL 2021-08-05 Steven Lucero 10:45:00 [facility] BASIC METABOLIC PANEL 2021-08-05 Rupali Lucero 10:45:00 [facility] ESTIMATED GFR 2021-08-05 Rupali Lucero 10:45:00 [facility] POC GLUCOSE 2021-08-05 Marycarmen Ayers 00:57:00 [facility] POC GLUCOSE 2021-08-04 Marycarmen Ayers 16:51:00 [facility] XR ABDOMEN 1 VW 2021-08-04 Rupali Lucero 16:40:00 [facility] POC GLUCOSE 2021-08-04 Tammy Dumont 11:24:00 [facility] HC COMPLETE BLD COUNT W/AUTO DIFF 2021-08-04 Tammy Dumont 11:06:00 [facility] BASIC METABOLIC PANEL 2021-08-04 Marycarmen Matson 11:06:00 [facility] MAGNESIUM LEVEL 2021-08-04 Rupali Lucero 11:06:00 [facility] PHOSPHORUS LEVEL 2021-08-04 Rupali Lucero 11:06:00 [facility] ESTIMATED GFR 2021-08-04 Marycarmen Matson 11:06:00 [facility] POC GLUCOSE 2021-08-04 Tammy Dumont 00:57:00 [facility] POC GLUCOSE 2021-08-03 Tammy Dumont 21:36:00 [facility] HEPATITIS B CORE ANTIBODY TOTAL 2021-08-03 Marycarmen Matson 17:42:00 [facility] HEPATITIS B SURFACE AB, 2021-08-03 Stephen Matson t QUANTITATIVE 17:42:00 [facility] HEPATITIS C ANTIBODY 2021-08-03 Marycarmen Matson 17:42:00 [facility] HEPATITIS B SURFACE ANTIGEN 2021-08-03 Andrea Matson 17:42:00 [facility] POC GLUCOSE 2021-08-03 Tammy Dumont 16:38:00 [facility] POC GLUCOSE 2021-08-03 Tammy Dumont 11:29:00 [facility] HC COMPLETE BLD COUNT W/AUTO DIFF 2021-08-03 Ender Lucero 11:03:00 [facility] BASIC METABOLIC PANEL 2021-08-03 Rupali Lucero 11:03:00 [facility] PHOSPHORUS LEVEL 2021-08-03 Marycarmen Matson 11:03:00 [facility] PARATHYROID HORMONE 2021-08-03 José Espino 11:03:00 [facility] ESTIMATED GFR 2021-08-03 Rupali Lucero 11:03:00 [facility] POC GLUCOSE 2021-08-03 Tammy Dumont 00:22:00 [facility] CV STRESS TEST NUCLEAR CARDIO 2021-08-02 Me rudy Mcdonald 21:45:00 [facility] NM MYOCARDIAL PERFUSION REST 2021-08-02 Met ada Mcdonald STRESS 1 DAY 21:45:00 [facility] POC GLUCOSE 2021-08-02 Tammy Dumont 21:08:00 [facility] POC GLUCOSE 2021-08-02 Tammy Dumont 16:34:00 [facility] POC GLUCOSE 2021-08-02 Tammy Dumont 11:19:00 [facility] HC COMPLETE BLD COUNT W/AUTO DIFF 2021-08-02 Ender Lucero 09:43:00 [facility] BASIC METABOLIC PANEL 2021-08-02 Rupali Lucero 09:43:00 [facility] MAGNESIUM LEVEL 2021-08-02 Rupali Lucero 09:43:00 [facility] ESTIMATED GFR 2021-08-02 Rupali Lucero Worship 09:43:00 [facility] POC GLUCOSE 2021-08-02 Tammy Dumont 00:15:00 [facility] POC GLUCOSE 2021-08-01 Tammy Dumontist 20:02:00 [facility] POC GLUCOSE 2021-08-01 Tammy Dumontist 16:16:00 [facility] POC GLUCOSE 2021-08-01 Tammy Dumontist 11:16:00 [facility] BASIC METABOLIC PANEL 2021-08-01 Theresa Ramos t 10:56:00 Hospital MAGNESIUM LEVEL 2021-08-01 Threesa Ramos 10:56:00 Hospital PHOSPHORUS LEVEL 2021-08-01 Theresa Ramos 10:56:00 Hospital HC COMPLETE BLD COUNT W/AUTO DIFF 2021-08-01 Ender Lucero 10:56:00 [facility] ESTIMATED GFR 2021-08-01 Theresa Ramos 10:56:00 Hospital ECG 12-LEAD 2021-08-01 Marycarmen Mcdonald 08:03:48 [facility] POC GLUCOSE 2021-08-01 Tammy Dumont 01:35:00 [facility] TTE COMPLETE, WO CONTRAST, W 2021-07-31 Harry, Met hodist DOPPLER ([id number]) 23:38:00 [facility] POC GLUCOSE 2021-07-31 Tammy Dumont 22:40:00 [facility] COVID-19 QUALITATIVE RT-PCR 2021-07-31 Rupali Lucero Met hodist 17:14:00 [facility] POC GLUCOSE 2021-07-31 Tammy Dumont 17:07:00 [facility] POC GLUCOSE 2021-07-31 Tammy Dumont 12:13:00 [facility] B NATRIURETIC PEPTIDE 2021-07-31 José Espino 11:34:00 [facility] BASIC METABOLIC PANEL 2021-07-31 José Espino 11:34:00 [facility] HC COMPLETE BLD COUNT W/AUTO DIFF 2021-07-31 José Espino 11:34:00 [facility] TROPONIN T 2021-07-31 José Espino 11:34:00 [facility] ESTIMATED GFR 2021-07-31 José Espino 11:34:00 [facility] Plan of Care Planned Activity Planned Date Details Comments Source Future Scheduled 2026-02-02 DTAP/TDAP/TD VACCINES [facility] 00:[facility]00 (2 - Td or Tdap) [code Medic al Center = DTAP/TDAP/TD VACCINES (2 - Td or Tdap)] Future Scheduled 2026-02-02 DTAP/TDAP/TD VACCINES [facility] 00:00:00 (2 - Td or Tdap) [code Medic al Center = DTAP/TDAP/TD VACCINES (2 - Td or Tdap)] Future Scheduled 2023-01-[address] [facility] Test 00:00:00 [facility] Medical Cent[facility] r Screening (12+) [code = Tobacco Cessation Counseling and Screening (12+)] Future Scheduled 2023-01-[address] [facility] Test 00:00:00 [facility] Medical Cent[facility] r Screening (12+) [code = Tobacco Cessation Counseling and Screening (12+)] Future Scheduled 2022-05-[address] [facility] Test 00:00:00 (12+) [code = Medical Center DEPRESSION SCREENING (12+)] Future Scheduled 2022-05-22 FALLS RISK SCREENING [facility] Test 00:00:00 [code = FALLS RISK Medical C enter SCREENING] Future Scheduled 2022-05-17 DIABETIC FOOT EXAM [facility] Test 10:42:08 [code = DIABETIC FOOT EXAM] Future Scheduled 2022-05-17 COLONOSCOPY SCREENING [facility] Test 10:42:08 [code = COLONOSCOPY SCREENING] Future Scheduled 2022-05-17 DIABETES: RETINAL EYE [facility] Test 10:42:08 EXAM [code = DIABETES: RETINAL EYE EXAM] Future Scheduled 2022-05-17 SHINGLES VACCINES (1 Met [facility] Test 10:42:08 of 2) [code = SHINGLES VACCINES (1 of 2)] Future Scheduled 2022-05-17 [facility] 10:42:08 SCREENING [code = BREAST CANCER SCREENING] Future Scheduled 2022-05-17 COVID-19 VACCINE (4 - [facility] 10:42:08 Booster for Pfizer series) [code = COVID-19 VACCINE (4 - Booster for Pfizer series)] Future Scheduled 2022-05-17 INFLUENZA VACCINE [facility] 10:42:08 [code = INFLUENZA VACCINE] Future Scheduled 2022-01-20 INFLUENZA VACCINE (#1) [facility]00 [code = INFLUENZA Medical Ce nter VACCINE (#1)] Future Scheduled 2022-01-20 INFLUENZA VACCINE (#1) [facility] 00:00:00 [code = INFLUENZA Medical Ce nter VACCINE (#1)] Future Scheduled 2021-05-[address] [facility] Test 00:00:00 (12+) [code = Medical Center DEPRESSION SCREENING (12+)] Future Scheduled 2021-05-22 FALLS RISK SCREENING [facility] Test 00:00:00 [code = FALLS RISK Medical C enter SCREENING] Future Scheduled 2021-03-10 PNEUMOCOCCAL 65+ [facility] [facility] Test 00:00:00 (2 - PPSV23 or PCV20) Medica l Center [code = PNEUMOCOCCAL 65+ YRS (2 - PPSV23 or PCV20)] Future Scheduled 2021-03-10 PNEUMOCOCCAL 65+ [facility] Test 00:00:00 (2 - PPSV23 or PCV20) Medica l Center [code = PNEUMOCOCCAL 65+ YRS (2 - PPSV23 or PCV20)] Future Scheduled 1998 SHINGLES VACCINES ([address] [facility] Test 00:00:00 of 2) [code = SHINGLES Medic al Center VACCINES (1 of 2)] Future Scheduled 1998 SHINGLES VACCINES ([address] [facility] Test 00:00:00 of 2) [code = SHINGLES Medic al Center VACCINES (1 of 2)] Future Scheduled 1966 HEPATITIS C SCRE[facility]ING [facility] 00:00:00 [code = HEPATITIS C Medical Center SCREENING] Future Scheduled 1966 HEPATITIS C SCRE[facility]ING [facility] 00:00:00 [code = HEPATITIS C Medical Center SCREENING] Future Scheduled 1949-04-16 COVID-19 VACCINE (#1) [facility] 00:00:00 [code = COVID-[address] VACCINE (#1)] Future Scheduled 1949-04-16 COVID-19 VACCINE (#1) [facility] 00:00:00 [code = COVID-[address] VACCINE (#1)] Future Scheduled [address] [facility] 00:[facility]:00 malignant neoplasm of Medica l Center breast (procedure) [code = 009332640] Future Scheduled [address] [facility] 00:00:00 (combo) [code = CT Medical C enter Colonography (combo)] Future Scheduled [address] [facility] 00:00:00 malignant neoplasm of Medica l Center colon (procedure) [code = 063807733] Future Scheduled [address] [facility] Test 00:00:00 malignant neoplasm of Medica l Center colon (procedure) [code = 775699391] Future Scheduled 1948 DXA SCAN [code = DXA [facility] Test 00:00:00 SCAN] [facility] Future Scheduled [address] [facility] Test 00:00:00 malignant neoplasm of Medica l Center colon (procedure) [code = 255916541] Future Scheduled [address] [facility] Test 00:00:00 malignant neoplasm of Medica l Center colon (procedure) [code = 860344027] Future Scheduled 1948 Sigmoidoscopy [facility]code [facility] [address] [facility] Test 00:00:00 malignant neoplasm of Medica l Center breast (procedure) [code = 007146799] Future Scheduled [address] [facility] 00:00:00 (combo) [code = CT Medical C enter Colonography (combo)] Future Scheduled [address] [facility] Test 00:00:00 malignant neoplasm of Medica l Center colon (procedure) [code = 346004807] Future Scheduled [address] [facility] Test 00:00:00 [facility] colon (procedure) [code = 826813494] Future Scheduled 1948 DXA SCAN [code = DXA [facility] Test 00:00:00 SCAN] [facility] Future Scheduled [address] [facility] Test 00:00:00 malignant [facility] colon (procedure) [code = 705441443] Future Scheduled [address] [facility] Test 00:00:00 malignant [facility] colon (procedure) [code = 166292367] Future Scheduled 1948 Sigmoidoscopy [facility] Sigmoidoscopy] Medical Cente r Encounters Start End Encounter Admission Attending Care Care Encounter Source Date/Time Date/Time Type Type Clinicians Facility Department ID 2022-06-08 Inpatient EL Alfredo, HCACL DAYS [id number] [facility] 09:00:00 Greg 07 [facility] 2022-01-05 Inpatient [facility] Vascular [id number] [facility] 13:58:43 [facility] 2021-11-04 Outpatient [facility] [id number] [place] 14:10:46 [id number] [place] 2021-08-11 Outpatient [facility] [id number] [place] 09:26:19 [id number] [place] 2022-04-01 2022-04-01 Orders Doctor MACKENZIE 1.2.840.114 [id number] Univers 00:00:00 00:00:00 Only Unassigned, YARELI 350.1.13.10 ity of [place] [facility] 4.2.7.2.686 Kev as [phone] [address] 2022-03-24 2022-03-24 Telephone TABITHA Barillas 1.2.974.615 [id number] Univers 00:00:00 00:00:00 [facility] 350.1.13.10 it y of [place] 4.2.7.2.686 Kev as MARISA?BLEA [phone] [place] [address] MEDICAL OFFICE BUILDING 2022-03-23 2022-03-23 Telephone TABITHA Barillas 1.2.503.383 [id number] Univers 00:00:00 00:00:00 Luc S HEALTH 350.1.13.10 it y of [place] 4.2.7.2.686 Kev as MARISA?BLEA [phone] [place] LOVE [address] [facility] OFFICE [facility] 2022-03-18 2022-03-18 [facility] 1.2.840.114 [id number] Univers 00:00:00 00:00:00 Alannah L HEALTH 350.1.13.10 it y of [place] 4.2.7.2.686 Kev as MARISA?BLEA [phone] [place] LOVE [address] [place] [address] OFFICE [facility] 2022-03-16 2022-03-16 [facility]phone [facility] 1.2.840.114 [id number] Univers 00:00:00 00:00:00 Alannah L SPECIALTY 350.1.13.10 ity of [place]7.2.[place] [phone] [place] [address] [place] [address] 2022-01-07 2022-01-18 Hospital Annalee Bey [facility] [id number] 17:48:00 16:48:00 Encounter Mauro Mendoza [facility] 2022-01-07 2022-01-18 Inpatient UR [facility] Surgery [id number] [facility] 17:48:00 16:48:00 ANNALEE 2022-01-07 2022-01-07 Travel [facility] [id number] [facility] 00:[facility]00 00:00:00 [facility] 2022-01-07 2022-01-07 Travel [facility] [id number] [facility] 00:[facility]00 00:00:00 [facility] 2022-01-02 2022-01-02 [facility] N[facility] [id number] Univers 00:00:00 00:00:00 ALANNAH millery of [facility] 2021-09-06 2021-09-16 [facility] Trinidad Menard .2.840.1 10 [id number] Methodi 14:46:00 18:55:00 Encounter Corrine Osuna 52939.1.[address] 3.430.2.7 Hospit a .3.645490 l .8 2021-09-06 2021-09-16 Inpatient ALEXANDRO [facility] [id number] [id number] [place] 00:00:00 00:00:00 MAHA [address] 2021-09-13 2021-09-13 Anesthesia Natasha, 1.2.840.1 [id number] Methodi 14:58:00 15:19:00 Event Edwin 58201.1.[address] Alannah 3.430.2.7 Hospit a .3.285225 l .8 2021-09-13 2021-09-13 Surgery John, 1.2.840.1 [id number] Methodi 14:22:00 14:27:[address] [facility] 3.430.2.7 Hospit a .3.914393 l .8 2021-09-06 2021-09-06 Travel 1.2.840.1 1.2.325.225 [id number] [id number] Methodi 00:00:00 00:00:[address] 3.430.2.7 0.2.7.3.698 Ho spita .3.814932 084.8 l .8 2021-07-31 2021-08-13 Hospital Tammy Dumont 1.2.840.1 [id number] Methodi 04:12:00 19:46:00 Encounter Edwin Ayers 64129.1.[address] Tasneem Ellison 3.430.2.7 Hospita Annalee Nuñez .3.324869 l .8 2021-07-31 2021-08-13 Inpatient SAVANNAH [facility] [id number] [place] 00:00:00 00:00:00 ANNALEE [address] 2021-08-12 2021-08-12 Anesthesia Leodan Rebolledo 1.2.840.1 [id number] Methodi 18:09:00 19:38:[address] 3.430.2.7 Hospit a .3.998897 l .8 2021-08-12 2021-08-12 Surgery Ru, 1.2.840.1 [id number] 5485 Methodi 17:35:00 18:50:[address] 3.430.2.7 Hospit a .3.542049 l .8 2021-08-05 2021-08-05 Anesthesia RamonAndre 1.2.840.1 [id number] Methodi 15:12:00 16:16:00 Event Grazyna Martinez Izzy 92585.1.[address] 3.430.2.7 Hospit a .3.151970 l .8 2021-08-05 2021-08-05 Surgery Abbie, 1.2.840.1 [id number] 2749 Methodi 15:20:00 16:05:[address] 3.430.2.7 Hospit a .3.017454 l .8 2021-08-02 2021-08-02 Documentat Provider, 1.2.840.1 [id number] 2 [id number] Methodi 00:00:00 00:00:00 ion Unknown 14761.1.[address] 3.430.2.7 Hospit a .3.929311 l .8 2021-07-14 2021-07-14 Transcribe Shabana 1.2.840.1 [id number] Methodi 00:00:00 00:00:00 Orders , Zulema 65449.1.[address] 3.430.2.7 Hospit a .3.868108 l .8 2021-06-10 2021-06-10 Clinical 1.2.840.1 [id number] Methodi 15:45:00 15:58:[address] 3.430.2.7 Hospit a .3.670134 l .8 2021-06-10 2021-06-10 Travel 1.2.840.1 1.2.530.955 6567 [id number] Methodi 00:00:00 00:00:00 02543.1.1 350.1.13.43 572 3.430.2.7 0.2.7.3.698 spita .3.895828 084.8 l .8 2021-06-10 2021-06-10 Outpatient [facility] [id number] [place] 00:00:00 00:00:[address] 2021-06-09 2021-06-09 Outpatient Sudheer_T VFP VFP [id number] 02-08 [facility] 11:40:00 11:40:00 [id number] Family Practic e 2021-06-01 2021-06-04 Outpatient AL-LAHIQ, [facility] 064 [id number] [place] 00:00:00 00:00:00 MAHA [address] 2020-08-05 2020-08-05 Outpatient FRIEND-SAMMAN [facility] [id number] [place] 00:00:00 00:00:00 , ZULEMA [address] 2020-07-09 2020-07-09 Outpatient [facility] [id number] [place] 00:00:00 00:00:00 856 Method i 2020-06-18 2020-06-18 Outpatient [facility] [id number] [place] 00:00:00 00:00:00 692 Method i 2020-04-05 2020-04-06 Outpatient AL-LAHIQ, [facility] 064 [id number] 92852 [place] 00:00:00 00:00:00 MAHA [address] 2020-03-22 2020-03-25 Inpatient AL-LAHIQ, [facility] 064 [id number] 0435 [place] 00:00:00 00:00:00 MAHA 725 Method i 2020-02-27 2020-02-27 Outpatient HIGUERA, [facility] [id number] [place] 00:00:00 00:00:00 DAVID 385 Method i 2020-02-17 2020-02-18 Outpatient AL-LAHIQ, [facility] 064 [id number] [place] 00:00:00 00:00:00 MAHA [address] 2020-01-17 2020-01-18 Emergency JOSE A, [facility] 064 [id number] 46 [place] 00:00:00 00:00:00 SHAKEEL [address] 2019-10-23 2019-10-26 Inpatient ALEXANDRO, [facility] 064 [id number] [place] 00:00:00 00:00:00 MAHA [address] 2019-08-05 2019-08-05 Outpatient PHUC-MICHAEL [facility] 827 [id number] [place] 00:00:00 00:00:00 , ZULEMA [address] 2019-07-10 2019-07-12 Inpatient ALEXANDRO, [facility] [id number] [place] 00:00:00 00:00:00 MAHA [address] 2019-03-27 2019-03-30 Outpatient BOAZ, [facility] [id number] [place] 00:00:00 00:00:00 SARAI [address] Results Test Description Test Time Test Comments Results Result Comments Source POC-Glucose meter 2022-01-18 12:22:13 Test Item Value Reference Range Interpretation Comme nts POC-Glucose Meter (test code = 102 mg/dL 70-110 : TESTED AT [facility] [address] 1538) [place] [address]: Concrete Finisher/Techni faviola ID = [id number] for Yelling, [place] a Lab Interpretation (test code = Normal 38455-6) [facility] [id number] 12:22:13 Test Item Value Reference Range Interpretation Comments POC-Glucose Meter (test 102 mg/dL 70-110 : TE STED AT [facility] code = 1538) [address] [facility] [address]: Concrete Finisher/Techni faviola ID = [id number] for Yelling, [place] a Lab Interpretation (test Normal code = 23030-9) [facility]-GLUCOSE [id number] 12:22:13 Test Item Value Reference Range Interpretation Comments POC-GLUCOSE METER 102 mg/dL 70-110 : TESTED A T [facility] 13[address] (BEAKER) (test code [facility], = 1538) [facility] 77 478: Concrete Finisher/Techni faviola ID = [id number] for [place] ing, Zuri BASIC METABOLIC [id number] 06:40:34 Test Item Value Reference Range Interpretation [...] 358) GLUCOSE RANDOM 158 mg/dL 70-110 H (BEAKER) (test code = 652) CALCIUM (BEAKER) 8.8 mg/dL 8.5-10.5 (test code = 697) EGFR (BEAKER) 10 Interpretatio n of eGFR (test code [...] not appl icable for dialysis patien ts Concrete Finisher ID - [id number] ID - [id number] ID - GUIKZNIVI606Qkoogfon ID - FGONTQPHQ386Rkbaqlpr ID - EACAASSDL542Bopnlgsh ID - AGYSUHHZZ559Ardhrbxz ID - [id number] ID - RTUSLHOPA948Gdbxknec ID - FFAWTBIVP720Vtiiwfuo ID - DMBSYVNRB095Ssppzwnm ID - [id number] ID - [id number] ID - [id number]-FOZEDZF [id number] 19:58:07 Test Item Value Reference Range Interpretation Comments POC-GLUCOSE METER 126 mg/dL 70-110 H : TESTED A T [facility] [address] (BEAKER) (test code [address], = 1538) [place] [address]: Concrete Finisher/Techni faviola ID = [id number] for Ina Agrawal POCT-GLUCOSE [id number] 17:18:36 Test Item Value Reference Range Interpretation Comments POC-GLUCOSE METER 128 mg/dL 70-110 H : Notified RN/MD: [facility] (test code AT [facility] [address] = 1538) [place] [address]: Concrete Finisher/Techni faviola ID = [id number] for Marianok er, [place] POCT-GLUCOSE [id number] 12:27:16 Test Item Value Reference Range Interpretation Comments POC-GLUCOSE METER 141 mg/dL 70-110 H : TESTED A T [facility] 1317 ([facility]) (test code [facility], = 1538) [place] [address]: Concrete Finisher/Techni faviola ID = [id number] for Marianok er, [place] POCT-GLUCOSE [id number] 08:42:44 Test Item Value Reference Range Interpretation Comments POC-GLUCOSE METER 152 mg/dL 70-110 H : Notified RN/MD: TESTED ([facility] (test code AT [facility] [address] = 1538) [place] [address]: Concrete Finisher/Techni faviola ID = [id number] for Maninder er, [place] BASIC METABOLIC [id number] 05:53:56 Test Item Value Reference Range Interpretation [...] not appl icable for dialysis patien ts Concrete Finisher ID - [id number] ID - [id number] ID - NNGCPMFQW540Mwdtlznn ID - GKPUHQMFS366Zummegjb ID - EHOTOSSAY285Yzsgfsbh ID - MHRYKDBZA810Xqznmycq ID - BWNYYJSIA662Hbixxxnx ID - IWXVDXRAH901Kfdanowz ID - ZMDKDSNYP694Xnzrokwa ID - XJVAUDTGO327Pdzzxmnn ID - QIDVQIIKM230Yovoxkhf ID - CCRDGPEXQ756Etbbyzkr ID - [id number]-MIMGZEX [id number] 20:28:58 Test Item Value Reference Range Interpretation Comments POC-GLUCOSE METER 184 mg/dL 70-110 H : TESTED A T [facility] [address] (BEAKER) (test code [address], = 1538) [place] [address]: Concrete Finisher/Techni faviola ID = [id number] for Ina Agrawal POCT-GLUCOSE [id number] 15:57:54 Test Item Value Reference Range Interpretation Comments POC-GLUCOSE METER 187 mg/dL 70-110 H : TESTED A T [facility] [address] (BEAKER) (test code [address], = 1538) [place] [address]: Concrete Finisher/Techni faviola ID = [id number] for Aileen Loja POCT-GLUCOSE [id number] 11:57:54 Test Item Value Reference Range Interpretation Comments POC-GLUCOSE METER 163 mg/dL 70-110 H : TESTED A T [facility] [address] (BEAKER) (test code [address], = 1538) [place] [address]: Concrete Finisher/Techni faviola ID = [id number] for Aileen Loja POCT-GLUCOSE [id number] 07:59:00 Test Item Value Reference Range Interpretation Comments POC-GLUCOSE METER 129 mg/dL 70-110 H : TESTED A T [facility] [address] (BEAKER) (test code [address], = 1538) [place] [address]: Concrete Finisher/Techni faviola ID = [id number] for Aileen Loja POCT-GLUCOSE [id number] 20:24:24 Test Item Value Reference Range Interpretation Comments POC-GLUCOSE METER 185 mg/dL 70-110 H : TESTED A T [facility] [address] (BEAKER) (test code [address], = 1538) [place] [address]: Concrete Finisher/Techni faviola ID = [id number] for Agustin Patel POCT-GLUCOSE [id number] 18:05:34 Test Item Value Reference Range Interpretation Comments POC-GLUCOSE METER 126 mg/dL 70-110 H : TESTED A T [facility] [address] (BEAKER) (test code [address], = 1538) [place] [address]: Concrete Finisher/Techni faviola ID = [id number] for Consuelo Leija POCT-GLUCOSE [id number] 12:43:19 Test Item Value Reference Range Interpretation Comments POC-GLUCOSE METER 154 mg/dL 70-110 H : TESTED A T [facility] [address] (BEAKER) (test code [address], = 1538) [place] [address]: Concrete Finisher/Techni faviola ID = [id number] for Consuelo Leija POCT-GLUCOSE [id number] 07:44:17 Test Item Value Reference Range Interpretation Comments POC-GLUCOSE METER 142 mg/dL 70-110 H : TESTED A T [facility] [address] (BEAKER) (test code [address], = 1538) [place] [address]: Concrete Finisher/Techni faviola ID = [id number] for Consuelo Leija BASIC METABOLIC [id number] 05:55:22 Test Item Value Reference Range Interpretation [...] not appl icable for dialysis patien ts Concrete Finisher ID - LITOOperator ID - LITOOperator ID - LITOOperator ID - LITOOperator ID - LITOOperator ID - LITOOperator ID - LITOOperator ID - LITOOperator ID - LITOOperator ID - LITOOperator ID - LITOOperator ID - LITOOperator ID - MARTÍN POCT-GLUCOSE [id number] 20:53:58 Test Item Value Reference Range Interpretation Comments POC-GLUCOSE METER 194 mg/dL 70-110 H : TESTED A T [facility] [address] (BEAKER) (test code [address], = 1538) [facility] 77 [address]: Concrete Finisher/Techni faviola ID = [id number] for Aileen Loja POCT-GLUCOSE [id number] 15:49:19 Test Item Value Reference Range Interpretation Comments POC-GLUCOSE METER 171 mg/dL 70-110 H : TESTED A T [facility] [address] (BEAKER) (test code [address], = 1538) [facility] 77 478: Concrete Finisher/Techni faviola ID = [id number] for Aileen Loja SARS-CoV2/RT-PCR (Asymptomatic ONLY)2022-01-14 15:42:35 Test Item Value Reference Interpretation Comments Range SARS-COV2/RT-PCR Negative Negative The SARS-Co V-2 (test code = target nucleic 17113-8) acids are not detected in thi s [...] of COVID-19 by the ir healthcare provider. VLAERIANO (test code = This test has been [...] revoked sooner. Fact Sheet for Healthcare Providers: https://www.[employer]/Documents/Xp ert%20Xpress%20SAR S%20CoV-2/Fact%20S heets/3023802%20S ARS-COV-2%20HEALTH CARE%20PROVIDERS%2 0FACT%20SHEET.pdf Fact Sheet for Healthcare Patients: https://www.[employer]/Documents/Xp ert%20Xpress%20SAR S%20CoV-2/Fact%20S heets/3023801%20S ARS-COV-2%20PATIEN T%20FACT%20SHEET.p df Lab Interpretation Normal (test code = 50592-4) [facility]14 15:42:35 Test Item Value Reference Interpretation Comments Range SARS-COV2/RT-PCR Negative Negative The SARS-Co V-2 (test code = target nucleic 88049-1) acids are not detected in thi s [...] revoked sooner. Fact Sheet for Healthcare Providers: https://www.[employer]/Documents/Xp ert%20Xpress%20SAR S%20CoV-2/Fact%20S heets/302-3802%20S ARS-COV-2%20HEALTH CARE%20PROVIDERS%2 0FACT%20SHEET.pdf Fact Sheet for Healthcare Patients: https://www.[employer]/Documents/Xp ert%20Xpress%20SAR S%20CoV-2/Fact%20S heets/302-3801%20S ARS-COV-2%20PATIEN T%20FACT%20SHEET.p df Lab Interpretation Normal (test code = 00090-2) [facility]2022-01-14 15:42:35 Test Item Value Reference Range Interpretation Comments SARS-COV2/RT-PCR Negative Negative The SARS-Co V-2 target (test code = nucleic acids a re not 9365919) detected in thi s specimen. Negative result [...] revoked sooner. Fact Sheet for Healthcare Providers: https://www.[employer] m/Documents/Xpert%20Xpress%20SARS%20CoV-2/Fact%20Sheets/3023802%09XAJW-MBX-6%20 HEALTHCARE%20PROVIDERS%20FACT%20SHEET.pdf Fact Sheet for Healthcare Patients: https://www.[employer]/Documents/Xpert%20Xp ress%20SARS%20CoV-2/Fact%20Sheets/3023801%98QXSH-OEY-5%20PATIENT%20FACT%20SHEET .pdfRAD, CHEST, 1 VIEW, NON [id number] 15:02:00Reason for exam:- >SOBShould this be performed at the bedside?->Yes [facility] 1950 Sex: FFINAL REPORT Chest AP portable semierect History provided: Shortness of breath Heart size magnified by projection. Multilead left subclavian pacemaker. Tunneled dialysis catheter from right jugular approach with catheter tip at the mid right atrium in excellent position. Left jugular central venous catheter with tip at the cavoatrial junction. Lungs are clear and vascularity normal. S igned: Carl Link MDReport Verified Date/Time: 01/14/2022 15:02:16 Reading Location: [facility] Radiology Reading Room POCT-GLUCOSE [id number] 12:14:41 Test Item Value Reference Range Interpretation Comments POC-GLUCOSE METER 134 mg/dL 70-110 H : TESTED A T [facility] (BEAKER) (test code [address], = 1538) [facility] 77 478: Concrete Finisher/Techni faviola ID = [id number] for Aileen Loja, CENTRAL VENOUS CATH PLCMT (JUG/FEM) > 5 Y.O. WITH [id number] 11:25:00Reason for exam:->Non tunneled central line placement [facility] 1950 Sex: FFINAL REPORT INSERTION OF [...] MDReport Verified Date/Time: 01/14/2022 11:25:42 Reading Location: [facility] Radiology Reading Room POCT-GLUCOSE [id number] 08:34:59 Test Item Value Reference Range Interpretation Comments POC-GLUCOSE METER 147 mg/dL 70-110 H : TESTED A T [facility] [address] (BEAKER) (test code [address], = 1538) [facility] 77 478: Concrete Finisher/Techni faviola ID = [id number] for Aileen Loja BASIC METABOLIC [id number] 06:37:03 Test Item Value Reference Range Interpretation [...] not appl icable for dialysis patien ts Concrete Finisher ID - LITOOperator ID - LITOOperator ID [...] 0-0 (BEAKER) (test code = 413) POCT-GLUCOSE [id number] 19:50:36 Test Item Value Reference Range Interpretation Comments POC-GLUCOSE METER 199 mg/dL 70-110 H : TESTED A T [facility] [address] (BEAKER) (test code [address], = 1538) [place] [address]: Concrete Finisher/Techni faviola ID = [id number] for Ina Agrawal POCT-GLUCOSE [id number] 16:52:12 Test Item Value Reference Range Interpretation Comments POC-GLUCOSE METER 150 mg/dL 70-110 H : TESTED A T [facility] (BEAKER) ([facility] [address] = [address] [place] [address]: Concrete Finisher/Techni faviola ID = [id number] for Aileen Loja POCT-GLUCOSE [id number] 14:05:10 Test Item Value Reference Range Interpretation Comments POC-GLUCOSE METER 122 mg/dL 70-110 H : TESTED A T [facility] (BEAKER) (test [facility] [address] = [address]) [place] [address]: Concrete Finisher/Techni faviola ID = [id number] for Nancy Douglass Blood gas, [id number] 09:06:33 Test Item Value Reference Range Interpretation Comments pH, Arterial (test code 7.45 7.35-7.45 = 2744-1) pCO2, Arterial (test 40 See_Comment [Autom ated message] code = 2019-) The system [facility] generated this result transmit kenneth reference range : 35 - 45 mm Hg. The reference range was not used to interpret this result as normal/abnormal . pO2, Arterial (test 79 See_Comment L [Automa kenneth message] code = 2703-7) The system [employer] generated this result transmit kenneth reference range [...] 21 Lab Interpretation Abnormal (test code = 32232-7) [facility] [id number] 09:06:33 Test Item Value Reference Range Interpretation Comments pH, Arterial (test code 7.45 7.35-7.45 = 2744-1) pCO2, Arterial (test 40 See_Comment [Autom ated message] code = 2019-8) The system [employer] generated this result transmit kenneth reference range : 35 - 45 mm Hg. The reference range was not used to interpret this result as normal/abnormal . pO2, Arterial (test 79 See_Comment L [Automa kenneth message] code = 2703-7) The system [employer] generated this result transmit kenneth reference range [...] 21 Lab Interpretation Abnormal (test code = 63357-5) [facility], [id number] 09:06:33 Test Item Value Reference Range Interpretation [...] (BEAKER) (test code = 1819) 21.0 POCT-GLUCOSE [id number] 08:36:44 Test Item Value Reference Range Interpretation Comments POC-GLUCOSE METER 132 mg/dL 70-110 H : TESTED A T [facility] [address] (BEAKER) (test code [address], = 1538) [facility] 77 478: Concrete Finisher/Techni faviola ID = [id number] for Aileen Loja TSH/FREE T4 IF [id number] 08:14:31 Test Item Value Reference Range Interpretation Comments THYROID STIMULATING HORMONE 1.790 uIU/mL 0.350-5.500 (BEAKER) (test code = 772) Concrete Finisher ID - DSENSONCOMPREHENSIVE METABOLIC [id number] 08:04:08 Test Item Value Reference Range Interpretation [...] 358) GLUCOSE RANDOM 136 mg/dL 70-110 H (LORENAAKER) (test code = 652) CALCIUM (LORENAAKER) 9.1 mg/dL 8.5-10.5 (test code = 697) AST (SGOT) 16 U/L 5-40 (BEAKER) (test code = 353) ALT (SGPT) < U/L 5-50 L (BEAKER) (test code = 347) EGFR (LORENAAKER) 13 Interpretatio n of eGFR (test code [...] not appl icable for dialysis patien ts Concrete Finisher ID - DSENSONOperator ID - DSENSONOperator ID - DSENSONOperator ID - DSENSONOperator ID - DSENSONOperator ID - DSENSONOperator ID - DSENSONOperator ID - DSENSONOperator ID - DSENSONOperator ID - DSENSONOperator ID - DSENSONOperator ID - DSENSONOperator ID - DSENSONOperator ID - DSENSONOperatorID - DSENSONOperator ID - DSENSONOperator ID - DSENSONOperator ID - DSENSONOperator ID - DSENSONTROPONIN [id number] 08:03:10 Test Item Value Reference Range Interpretation Comments TROPONIN I (TONEY) (test code = 0.07 ng/mL 0.00-0.15 397) [...] failure, acidosis, acute neurological disease, and persistent tachyarrhythmia.Concrete Finisher ID - DSENSONCT, BRAIN, WITHOUT [id number] 07:49:00 [facility] 1950 Sex: FFINAL REPORT CT, BRAIN, WITHOUT CONTRAST CLINICAL INDICATION: Delirium COMPARISON: None TECHNIQUE: Noncontrast axial CT imaging of the brain and skull. DOSE REDUCTION: Dose modulation,iterative reconstruction, and/or weight-based adjustment of the mA/kV was utilized to reduce the radiation dose to as low as reasonably achievable. FINDINGS:No intracranial hemorrhage, midline shift ormass effect. Midline structures are normally developed. Scattered foci of hypoattenuation are present throughout the periventricular and subcortical white matter, and, although nonspecific by imaging, statistically represent mild chronic microvascular ischemic changes in this age group. No hydrocephalus. Orbits are within normal limits. Prior bilateral lens surgery. Atherosclerotic calcification of the intracranial internal carotid arteries. No obstructive paranasal sinus disease. IMPRESSION: No acute intracranial findings If there is persistent clinical concern for intracranial pathology, MR examination is recommended for further characterization. Signed: Suzi Askew MDRepmercy [facility] Verified Date/Time: 01/13/2022 07:49:20 CBC W/PLT COUNT & AUTO [id number] 07:39:37 Test Item Value Reference Range Interpretation [...] PERCENT (BEAKER) (test code = 2801) POCT-GLUCOSE [id number] 07:15:45 Test Item Value Reference Range Interpretation Comments POC-GLUCOSE METER 127 mg/dL 70-110 H : TESTED A T [facility] 1317 (BEAKER) (test code [facility] [address], = 1538) [facility] 77 478: Concrete Finisher/Techni faviola ID = [id number] for Aileen Loja POCT-GLUCOSE [id number] 06:32:48 Test Item Value Reference Range Interpretation Comments POC-GLUCOSE METER 133 mg/dL 70-110 H : TESTED A T [facility] [address] (BEAKER) (test code [address], = 1538) [place] [address]: Concrete Finisher/Techni faviola ID = [id number] for Mekhi bi, [place] POCT-GLUCOSE [id number] 21:05:05 Test Item Value Reference Range Interpretation Comments POC-GLUCOSE METER 195 mg/dL 70-110 H : TESTED A T [facility] [address] (BEAKER) (test code [address], = 1538) [place] [address]: Concrete Finisher/Techni faviola ID = [id number] for Mekhi bi, [place] POCT-GLUCOSE [id number] 19:32:35 Test Item Value Reference Range Interpretation Comments POC-GLUCOSE METER 180 mg/dL 70-110 H : TESTED A T [facility] [address] (BEAKER) (test code [address], = 1538) [place] [address]: Concrete Finisher/Techni faviola ID = [id number] for Lawrence ins, Odalys POCT-GLUCOSE [id number] 19:30:16 Test Item Value Reference Range Interpretation Comments POC-GLUCOSE METER 50 mg/dL 70-110 L : TESTED A T [facility] (BEAKER) (test code = [address], 1538) [place] [address]: Concrete Finisher/Techni faviola ID = [id number] for Lawrence ins, Odalys POCT-GLUCOSE [id number] 18:09:32 Test Item Value Reference Range Interpretation Comments POC-GLUCOSE METER 63 mg/dL 70-110 L : TESTED A T [facility] [address] (BEAKER) (test code = [address], 1538) [place] [address]: Concrete Finisher/Techni faviola ID = [id number] for Will iams, Robe ANG, TUNNELED CATHETER [id number] 17:04:00Reason for exam:->dialysis catheter with poor flows on dialysis, very positional - please place tunneled dialysis catheter in a new position. [facility] 1950 Sex: FFINAL REPORT Tunneled dialysis catheter exchange, 01/12/2022. History: Renal failure, poor flow through the existing catheter. Modality: Sonography and fluoroscopy. Sedation: None. Rn Iv Therapy: Mitzy. Processor Solid Propellant: None. Approach: Internal jugular vein - right. Estimated blood loss: <1 cc. Specimen: None. Fluoroscopy Time: 0.5 min. Dose (Ka,r): 4 mGy. Technique: Informed written consent was obtained. Discussion of risks, benefits, and alternatives were made with the patient. The patient expressed understanding and agreed to proceed. All aspects of maximal sterile barrier technique were utilized for this procedure, including washing hands with conventional soap and water or alcohol base hand rubs, utilization of sterile scrub solution for skin preparation, cap, mask, sterile gloves, sterile gown, and sterile full body drape. Sterile ultrasound techniques were followed, including sterile gel and sterile probe covers. Several attempts at repositioning the existing catheter to improve the flow were unsuccessful. The skin was anesthetized with 2% lidocaine. A 0.035 inch wirewas placed through the existing right IJ tunneled catheter into the right atrium. Microcatheter was removed and a new 23 cm 15.5 Nigerien Duraflow 2 catheter was advanced through the tunnel into the vessel, into the catheter tip was in the inferior right atrium. The ports were tested demonstrating that b oth aspirated easily following placement. The ports were then packed with heparin. The catheter was sutured to the skin with 2-0 silk to secure its placement. Vital signs were monitored throughout the procedure by a nurse, and remained stable. The patient tolerated the procedure well and left the depar tment in the same condition. Results: Spot radiograph of the chest demonstrates the new dialysis catheter to terminate in the inferior right atrium. Impression: Successful, uncomplicated exchange of aright internal jugular tunneled dialysis catheter using fluoroscopic guidance. Signed: Nick Dockeryeport Verified Date/Time: 01/12/2022 17:04:33 Reading Location: [facility] Reading Room POCT-GLUCOSE [id number] 12:20:13 Test Item Value Reference Range Interpretation Comments POC-GLUCOSE METER 107 mg/dL 70-110 : TESTED A T [facility] (BEAKER) (test code [address], = 1538) [place] [address]: Concrete Finisher/Techni faviola ID = [id number] for Will iams, Robe POCT-GLUCOSE [id number] 09:01:23 Test Item Value Reference Range Interpretation Comments POC-GLUCOSE METER 118 mg/dL 70-110 H : TESTED A T [facility] (BEAKER) (test code [address], = 1538) [place] [address]: Concrete Finisher/Techni faviola ID = [id number] for Will iams, Robe CBC W/PLT COUNT & AUTO [id number] 06:58:41 Test Item Value Reference Range Interpretation [...] code = 1+ few 961) BASIC METABOLIC [id number] 06:30:57 Test Item Value Reference Range Interpretation [...] not appl icable for dialysis patien ts Concrete Finisher ID - LITOOperator ID - LITOOperator ID - LITOOperator ID - LITOOperator ID - LITOOperator ID - LITOOperator ID - LITOOperator ID - LITOOperator ID - LITOOperator ID - [id number] 06:19:11 Test Item Value Reference Range Interpretation Comments MAGNESIUM (BEAKER) (test code = 1.9 mg/dL 1.5-3.0 627) Concrete Finisher ID - LITOOperator ID - LITOOperator ID - LITOOperator ID - MARTÍN [id number] 06:16:11 Test Item Value Reference Range Interpretation Comments PHOSPHORUS (BEAKER) (test code = 3.4 mg/dL 2.5-4.5 604) Concrete Finisher ID - LITOPROTHROMBIN TIME/[id number] 06:03:04 Test Item Value Reference Range Interpretation Comments PROTIME (BEAKER) 12.4 seconds 9.3-12.0 H Final Infor mation (test code = 759) (Auto Outp ut) INR (BEAKER) (test 1.14 See_Comment Final Inf ormation code = 370) (Auto Output) [Automated mess age] The system [employer] generated this result transmitted ref erence range: <=5.90. The reference range was not used to int erpret this result as normal/abnormal . RECOMMENDED COUMADIN/WARFARIN INR THERAPY RANGESSTANDARD DOSE: 2.0 - 3.0 Includes: PROPHYLAXIS for venous thrombosis, systemic embolization; TREATMENT for venous thrombosis and/or pulmonary embolus.HIGH RISK: Target INR is 2.5-3.5 for patients with mechanical heart valves.[id number] 06:03:04 Test Item Value Reference Range Interpretation Comments PARTIAL THROMBOPLASTIN 29.5 seconds 23.0-35.0 Final Information TIME (BEAKER) (test (Auto Ou tput) code = 760) POCT-GLUCOSE [id number] 20:00:47 Test Item Value Reference Range Interpretation Comments POC-GLUCOSE METER 172 mg/dL 70-110 H : TESTED A T [facility] (BEAKER) (test code [address], = 1538) [place] [address]: Concrete Finisher/Techni faviola ID = [id number] for Will iams, Ina POCT-GLUCOSE [id number] 18:09:30 Test Item Value Reference Range Interpretation Comments POC-GLUCOSE METER 121 mg/dL 70-110 H : TESTED A T [facility] (BEAKER) (test code [address], = 1538) [place] [address]: Concrete Finisher/Techni faviola ID = [id number] for Will iams, Robe POCT-GLUCOSE [id number] 12:48:21 Test Item Value Reference Range Interpretation Comments POC-GLUCOSE METER 102 mg/dL 70-110 : TESTED A T [facility] (BEAKER) (test code [address], = 1538) [place] [address]: Concrete Finisher/Techni faviola ID = [id number] for Avelino h, Kerline POCT-GLUCOSE [id number] 08:00:17 Test Item Value Reference Range Interpretation Comments POC-GLUCOSE METER 119 mg/dL 70-110 H : TESTED A T [facility] (BEAKER) (test code [address], = 1538) [place] [address]: Concrete Finisher/Techni faviola ID = [id number] for Will iams, Robe POCT-GLUCOSE [id number] 21:28:11 Test Item Value Reference Range Interpretation Comments POC-GLUCOSE METER 227 mg/dL 70-110 H : TESTED A T [facility] (BEAKER) (test code [address], = 1538) [facility] 77 478: Concrete Finisher/Techni faviola ID = [id number] for Liiba Pop POCT-GLUCOSE [id number] 15:35:44 Test Item Value Reference Range Interpretation Comments POC-GLUCOSE METER 168 mg/dL 70-110 H : TESTED A T [facility] [address] (BEAKER) (test code [address], = 1538) [facility] 77 [address]: Concrete Finisher/Techni faviola ID = [id number] for Maribel Jimenez, REPL CVC/TUNNELED W/O [id number] 11:59:00 [facility] 1950 Sex: FFINAL REPORT PROCEDURE: Tunneled [...] time-out was performed prior to the procedure.Preparation (MIPS ): The site was prepared and draped using all elements of maximal sterile barrier technique including sterile gloves, sterile gown, cap, mask, large sterile sheet, sterile ultrasound probe cover, hand hygiene and cutaneous antisepsis with 2% chlorhexidine. Medical reason for site preparation exception (MIPS): Not applicable Anesthesia/sedationLevel of anesthesia/sedation: Moderate sedation (conscioussedation)Anesthesia/sedation administered by: Independent trained observer under attending supervision with continuous monitoring of the patient\\X2019\\s level of consciousness and physiologic statusTotal intra-service sedation time (minutes): 30 Catheter exchange2 wires were passed through the indwelling tunneled central venous catheter and into the at atrium. The catheter was removed, and a new catheter was advanced under fluoroscopic guidance. Catheter tip location was fluoroscopically verified and a permanent image was stored. Catheter size (Nigerien): 15.5Catheter flush: Heparin (100 units/mL) Abbie sureThe catheter was secured. A sterile dressing was applied.Catheter securement technique: Non-absorbable suture ContrastContrast agent: NoneContrast volume (mL): 0 Radiation DoseFluoroscopy time: 1 minute 17 secondsDose: 13 mgy Additional DetailsAdditional description of procedure: NoneEquipment details: NoneSpecimens removed: NoneEstimated blood loss (mL): Less than 10Standardized report: SIR_TunneledCatheterExchange_v3 AttestationSigner name: Vicki Meyers attest that I was present for the entireprocedure. I reviewed the stored images and agree with the report as written. Signed: Vicki Ramirez MDReport Verified Date/Time: 01/10/2022 11:59:48 Reading Location: [facility] Radiology Reading Room POCT-GLUCOSE [id number] 11:32:33 Test Item Value Reference Range Interpretation Comments POC-GLUCOSE METER 105 mg/dL 70-110 : TESTED A T [facility] (BEAKER) (test code [address], = 1538) [facility] 77 [address]: Concrete Finisher/Techni faviola ID = [id number] for Maribel Jimenez BASIC METABOLIC [id number] 04:51:32 Test Item Value Reference Range Interpretation [...] not appl icable for dialysis patien ts Concrete Finisher ID - LITOOperator ID - LITOOperator ID - LITOOperator ID - LITOOperator ID - LITOOperator ID - LITOOperator ID - LITOOperator ID - LITOOperator ID - LITOOperator ID - [id number] 04:50:58 Test Item Value Reference Range Interpretation Comments MAGNESIUM (BEAKER) (test code = 2.0 mg/dL 1.5-3.0 627) Concrete Finisher ID - LITOOperator ID - LITOOperator ID - LITOOperator ID - MARTÍN [id number] 04:48:19 Test Item Value Reference Range Interpretation Comments PHOSPHORUS (BEAKER) (test code = 3.9 mg/dL 2.5-4.5 604) Concrete Finisher ID - [id number] 04:44:00 Test Item Value Reference Range Interpretation Comments PARTIAL THROMBOPLASTIN 51.7 seconds 23.0-35.0 H Final Information TIME (BEAKER) (test (Auto Ou tput) code = 760) CBC W/PLT COUNT & AUTO [id number] 04:24:30 Test Item Value Reference Range Interpretation [...] PERCENT (BEAKER) (test code = 2801) POCT-GLUCOSE [id number] 21:26:47 Test Item Value Reference Range Interpretation Comments POC-GLUCOSE METER 127 mg/dL 70-110 H : TESTED A T [facility] (BEAKER) (test code [facility] [address], = 1538) [place] [address]: Concrete Finisher/Techni faviola ID = [id number] for Libia Pop [id number] 20:08:11 Test Item Value Reference Range Interpretation Comments PARTIAL THROMBOPLASTIN 41.3 seconds 23.0-35.0 H Final Information TIME (BEAKER) (test (Auto Ou tput) code = 760) POCT-GLUCOSE [id number] 17:14:06 Test Item Value Reference Range Interpretation Comments POC-GLUCOSE METER 154 mg/dL 70-110 H : TESTED A T [facility] (BEAKER) ([facility] [address] [facility] = [address] [place] [address]: Concrete Finisher/Techni faviola ID = [id number] for Aileen Loja POCT-GLUCOSE [id number] 11:55:38 Test Item Value Reference Range Interpretation Comments POC-GLUCOSE METER 153 mg/dL 70-110 H : TESTED A T [facility] (BEAKER) ([facility] [address] [facility] = [address]) [place] [address]: Concrete Finisher/Techni faviola ID = [id number] for Maribel Jimenez HEPATITIS B SURFACE [id number] 11:29:52 Test Item Value Reference Range Interpretation Comments HEPATITIS B SURFACE ANTIBODY 53.8 mIU/mL <8.0 H (BEAKER) (test code = 647) Concrete Finisher ID - [id number] 10:04:36 Test Item Value Reference Range Interpretation Comments PARTIAL THROMBOPLASTIN 36.3 seconds 23.0-35.0 H Final Information TIME (BEAKER) (test (Auto Ou tput) code = 760) POCT-GLUCOSE [id number] 07:31:03 Test Item Value Reference Range Interpretation Comments POC-GLUCOSE METER 111 mg/dL 70-110 H : TESTED A T [facility] (BEAKER) (test code [address], = 1538) [facility] [place] [address]: Concrete Finisher/Techni faviola ID = [id number] for Maribel Jimenez [id number] 06:13:46 Test Item Value Reference Range Interpretation Comments MAGNESIUM (BEAKER) (test code = 1.8 mg/dL 1.5-3.0 627) Concrete Finisher ID - [id number] ID - [id number] ID - [id number] ID - [id number] METABOLIC [id number] 06:12:49 Test Item Value Reference Range Interpretation [...] not appl icable for dialysis patien ts Concrete Finisher ID - [id number] ID - [id number] ID - [id number] ID - FNHFCVVIW679Zkqcinrp ID - [id number] ID - [id number] ID - IFXEBOEGJ421Nacjqjdj ID - [id number] ID - [id number] ID - [id number] 06:10:51 Test Item Value Reference Range Interpretation Comments PHOSPHORUS (BEAKER) (test code = 3.0 mg/dL 2.5-4.5 604) Concrete Finisher ID - [id number] W/PLT COUNT & AUTO [id number] 05:49:35 Test Item Value Reference Range Interpretation [...] PERCENT (BEAKER) (test code = 2801) POCT-GLUCOSE [id number] 05:17:03 Test Item Value Reference Range Interpretation Comments POC-GLUCOSE METER 108 mg/dL 70-110 : TESTED A T [facility] (BEAKER) (test code [facility] [address], = 1538) [facility] 77 [address]: Concrete Finisher/Techni faviola ID = [id number] for esperanza Abraham [id number] 01:14:37 Test Item Value Reference Range Interpretation Comments PARTIAL THROMBOPLASTIN 37.5 seconds 23.0-35.0 H Final Information TIME (BEAKER) (test (Auto Ou tput) code = 760) HEPATITIS B SURFACE [id number] 18:36:43 Test Item Value Reference Range Interpretation Comments HEPATITIS B SURFACE ANTIGEN (2) Nonreactive Nonreactive (BEAKER) (test code = 2585) Concrete Finisher ID - [id number] 17:00:29 Test Item Value Reference Range Interpretation Comments POC-GLUCOSE METER 131 mg/dL 70-110 H : TESTED A T [facility] (BEAKER) (test code [address], = 1538) [place] [address]: Concrete Finisher/Techni faviola ID = [id number] for Migel Holt [id number] 16:38:44 Test Item Value Reference Range Interpretation Comments PARTIAL THROMBOPLASTIN 42.5 seconds 23.0-35.0 H Final Information TIME (BEAKER) (test (Auto Ou tput) code = 760) POCT-GLUCOSE [id number] 12:29:39 Test Item Value Reference Range Interpretation Comments POC-GLUCOSE METER 168 mg/dL 70-110 H : TESTED A T [facility] [address] (BEAKER) (test code [address], = 1538) [place] [address]: Concrete Finisher/Techni faviola ID = [id number] for Bernie Dubois Migel POCT-GLUCOSE [id number] 08:10:36 Test Item Value Reference Range Interpretation Comments POC-GLUCOSE METER 136 mg/dL 70-110 H : TESTED A T [facility] [address] (BEAKER) (test code [address], = 1538) [place] [address]: Concrete Finisher/Techni faviola ID = [id number] for Bernie Duobis Migel BASIC METABOLIC [id number] 06:18:43 Test Item Value Reference Range Interpretation [...] not appl icable for dialysis patien ts Concrete Finisher ID - LITOOperator ID - LITOOperator ID - LITOOperator ID - LITOOperator ID - LITOOperator ID - LITOOperator ID - LITOOperator ID - LITOOperator ID - LITOOperator ID - [id number] 06:17:29 Test Item Value Reference Range Interpretation Comments MAGNESIUM (BEAKER) (test code = 1.6 mg/dL 1.5-3.0 627) Concrete Finisher ID - LITOOperator ID - LITOOperator ID - LITOOperator ID - MARTÍN HEMOGLOBIN [id number] 06:16:10 Test Item Value Reference Range Interpretation Comments HEMOGLOBIN A1C (BEAKER) (test code = 8.5 % 4.3-6.1 H 368) Concrete Finisher ID - [id number] 06:14:08 Test Item Value Reference Range Interpretation Comments PHOSPHORUS (BEAKER) (test code = 5.0 mg/dL 2.5-4.5 H 604) Concrete Finisher ID - [id number] 05:59:43 Test Item Value Reference Range Interpretation Comments PARTIAL THROMBOPLASTIN 45.4 seconds 23.0-35.0 H Final Information TIME (BEAKER) (test (Auto Ou tput) code = 760) CBC W/PLT COUNT & AUTO [id number] 05:48:29 Test Item Value Reference Range Interpretation [...] H PERCENT (BEAKER) (test code = 2801) [id number] 21:22:07 Test Item Value Reference Range Interpretation Comments PARTIAL THROMBOPLASTIN 26.5 seconds 23.0-35.0 Final Information TIME (BEAKER) (test (Auto Ou tput) code = 760) POCT-GLUCOSE [id number] 21:12:37 Test Item Value Reference Range Interpretation Comments POC-GLUCOSE METER 136 mg/dL 70-110 H : TESTED A T [address] (BEAKER) (test code [address], = 1538) [facility] 77 478: Concrete Finisher/Techni faviola ID = [id number] for esperanza Abraham POC [id number] 16:00:00 Test Item Value Reference Range Interpretation Comments POC glucose (test code = 158 mg/dL 65-99 H Ope rator Name: [id number]) Bob tilley ID: [id number] Lab Interpretation (test Abnormal code = 51555-9) [facility] [id number] 15:05:25 Test Item Value Reference Range Interpretation Comments Case number (test code = [id number]) Surgical pathology See link below for report (test code = PDF Lab Report [id number]) Result status (test code This is Final Report = [id number]) for [id number] [facility] 12 [id number] 12:23:18 Test Item Value Reference Range Interpretation Comments Ventricular rate (test code = 253) Atrial rate (test code = 255) QRSD interval (test code = 260) QT interval (test code = 264) QTC interval (test code = 265) P axis 1 (test code = 267) QRS axis 1 (test code = 268) T wave axis (test code = 270) EKG impression (test Ventricular-paced code = 273) rhythm-Abnormal ECG-In automated comparison with ECG of 12-AUG-2021 06:02,-No significant change was found- [facility] ED Preliminary Interpretation - Not an [id number] 21:23:51 Test Item Value Reference Range Interpretation Comments VALERIANO (test code = VALERIANO) Marley Cronin NP-C 09/07/2021 9:29 [facility] ED Preliminary Interpretation - Not an OrderPerformed by: Marley Cronin NP-CAuthorized by: Trinidad Menard MD ECG reviewed by ED Physician in the absence of a assistant professor in family studies: no Previous ECG: Previous ECG: UnavailableInterpretat ion: Interpretation: abnormal Rate: ECG rate: 80 ECG rate assessment: normal Rhythm: Rhythm: paced Pacing: Type of pacing: VentricularEctopy: Ectopy: none QRS: QRS axis: Normal QRS intervals: NormalConduction: Conduction: normal ST segments: ST segments: Normal Lab Interpretation Abnormal (test code = 65228-6) [facility]avjocraWRHK-HkA-2 (COVID-19) RNA [Presence] in Respiratory specimen by LANG with probe [id number] 13:39:12 Test Item Value Reference Range Interpretation Comments SARS-CoV-2 (COVID-19) RNA Not detected [Presence] in Respiratory specimen by LANG with probe detection (test code = 68411-9) Whether patient is employed in a Unknown healthcare setting (test code = 06195-9) Whether the patient has symptoms Unknown related to condition of interest (test code = 21259-9) Whether the patient was Unknown hospitalized for condition of interest (test code = 63827-9) Whether the patient was admitted Unknown to intensive care unit (ICU) for condition of interest (test code = 04265-1) Whether patient resides in a Unknown congregate care setting (test code = 32894-1) status (test code = Unknown 74604-3) Date and time of symptom onset Unknown (test code = 43653-3) [facility] myocardial [id number] 02:36:07 Test Item Value Reference Range Interpretation Comments Target HR (test code bpm = 7566776883) Resting HR (test BPM code = 5840788323) Resting BP (test 178/79 mmHg code = 2648029272) Percent HR (test 54.05 % code = 1851961246) Post Peak HR (test bpm code = 5563510167) Post Peak BP (test 161/77 mmHg code = 9093795278) Radiology Study observation (narrative) (test code = 49244-7) VALERIANO (test code = Study Quality: good. VALERIANO) This study result indicates an intermediate risk of cardiac , or nonfatal infarction, over the ensuing year. Overall There is No clear perfusion defect , there was Gi uptake of the tracer resulting in attenuation artifact. Ejection Fraction is 41% - The post-stress left ventricle ejection fraction is mildly reduced ECGInterpretation: Test inconclusive by ekg criteria. Ischemia correlation will be done following perfusion images. Paced rhythm.Perfusion DefectOverall There is No clear perfusion defect , there was Gi uptake of the tracer resulting in attenuation artifact.Stress Protocol/Tolerance FindingsThe patient was infused with 5 ml of regadenoson intravenous over 10 seconds for a total dose of 0.4 mg, followed by a 5 ml saline flush intravenous over 10 seconds. The stress radiotracer followed the intravenous saline flush over 10 seconds.. Indication for pharmacological testing is unable to attain target HR w/ exercise.Isotope AdministrationThe isotope used for nuclear imaging was technetium tetrofosmin. Images performed at rest after an injection of 9 mCi. Images performed at stress after an injection of 27 mCi.Myocardial Perfusion- SPECT images are probably normal. - Perfusion evaluation method of the left ventricle is visual not quantitative.Imaging Findings- The overall study quality is good. - This study result indicates an intermediate risk of cardiac , or nonfatal infarction, over the ensuing year.Ventricles- The images were gated. - Ejection Fraction is 41%- The post-stress left ventricle ejection fraction is mildly reduced. [facility] stress [id number] 22:06:40 Test Item Value Reference Range Interpretation Comments Resting BP (test code = 6164444175) Protocol Name (test LEXISCAN code = 4553326128) Time in Exercise 00:01:00 Phase (test code = 7896859076) Max Systolic BP (test code = 6911002475) Max Diastolic BP (test code = 8392769135) Max Heart Rate (test code = 5580007827) Max Predicted Heart Rate (test code = 6323298667) Test Indication (test code = 4324480439) Arrhy During Ex (test code = 6416687532) ECG Interp Before EX (test code = 9645343260) ECG Interp During Ex (test code = 1649966770) Ex Summary Comment (test code = 8303927488) Overall HR Response to Exercise (test code = 2087145069) Overall BP Response To Exercise (test code = 3748026049) Reason for Termination (test code = 4832883186) Stress Test Waveform interpreted in Impression (test code report associated with = 9424172193) image study. No interpretation is provided as part of this Stress ECG report.-Electronically Signed By Caron Medina MD ([id number]), editor managing director Daysi Chapman ([id number]) on 08/02/2021 5:06:37 PM [facility], (w Contrast, Strain and 3D if needed)2021-08-01 17:44:46 Test Item Value Reference Range Interpretation Comments AoV Area, Vmax (test 2.41 cm2 code = 4385924360) AoV Area, VTI (test 2.36 cm2 code = 4989110119) AoV Mean PG (test mmHg code = 1042582940) AoV Peak PG (test mmHg code = 0235085465) AoV Vmax (test code 1.77 m/s = 7171615699) AoV VTI (test code = 0.30 m 2452414817) IVS,d (test code = 1.11 cm 0220286297) LV,d (test code = 5.57 cm 7523648800) LV EF,A2C (test code 44.91 % = 2549025456) LV EF,A4C (test code 42.43 % = 1263056183) LV EF,BP (test code 42.76 % = 1565298138) Santana Assumption,d A2C (test 7.79 cm code = 3524246445) Santana Assumption,d A4C (test 7.59 cm code = 6868922618) Santana Assumption,s A2C (test 7.10 cm code = 4145999762) Santana Assumption,s A4C (test 6.58 cm code = 4214801830) LV,s (test code = 4.42 cm 2515952710) LV SV,A2C (test code 59.18 % = 3950373584) LV SV,A4C (test code 64.42 % = 3178466972) LV Vol,d A2C (test 131.77 mL code = 8059884228) LV Vol,d A4C (test 151.81 ml code = 6222551523) LV Vol,d BP (test 142.79 ml code = 3980557446) LV Vol,s A2C (test 72.60 mL code = 2438185897) LV Vol,s A4C (test 87.39 ml code = 7429566210) LV Vol,s BP (test 81.72 nl code = 1913257045) LVOT Diam,S (test 2.08 cm code = 7505419559) LVOT Vmax (test code 1.16 m/s = 4728463984) LVOT VTI (test code 0.21 m = 8654274981) LVPWD,d (test code = 1.05 cm 2900670484) TR Vpeak (test code 2.66 mm/s = 1683416626) AR Press Half Time 504.65 ms (test code = 6411980233) TR pk grad (test mmHg code = 3633599554) MR Vmax (test code = 6.10 m/s 9135765898) MR peak grad (test mmHg code = 0851172089) E wave decelartion msec time (test code = 5593631548) MV Peak E Des (test 1.46 m/s code = 4873455790) LVOT stroke volume 0.71 cm3 (test code = 8075529795) AV LVOT peak mmHg gradient (test code = 3215013552) LV SYS VOL (test 88.60 ml code = 6304149050) LV THOMPSON VOL (test 151.60 ml code = 8393308182) LA area s A4C (test 35.87 cm2 code = 9137606038) LV SV Teich 2D (test 63.00 ml code = 7103289644) LVOT SI (test code = 38.28 ml/m2 5618493469) AoV Cusp sep (test code = 5202862162) AoV Vmn (test code = 9495388659) IVS s 2D (test code = 4804118649) AR slope (test code = 0820374934) Ar Vmax (test code = 0758175054) LA Ao Ratio Mmode (test code = 4625024363) LVOT Vmn (test code = 9362811775) Pt Size (test code = 6823803223) Pt Wt (test code = 2172408465) PV AT (test code = msec 3542596614) LVOT mean grad (test mmHg code = 6481713182) AR DT (test code = msec 2954046978) AR pk grad (test mmHg code = 6424000926) LVPW s PLAX (test 1.41 cm code = 1248503489) MV Decel slope (test 9.79 m/s2 code = 1627418420) LA Vol MOD A4C (test 124.31 ml code = 2810873126) Velocity Ratio 0.66 m/s (V1/V2) (test code = 4689) EF (test code = 41.56 % 7047503330) LVOT area (test code 3.40 cm2 = 6926793390) LVOT VTI (CM) (test 21.00 cm code = 5016235473) RA pressure (test mmHg code = 4458259600) LA Vol 4C (test code 124.00 ml = 9442105889) RVSP (test code = mmHg 1576271774) LA diam s (test code 5.50 cm = 9206285964) Aortic Root (test 2.63 cm code = 2496909810) [place] End Thompson Grad (test code = 6005477856) [place] End Diat Des (test code = 7529745677) AR maxPG (test code = 4276094014) D E excurs (test code = 1330421463) E f slope (test code = 1335071147) E prime lat (test code = 0975727653) E keaton sept (test code = 0067079390) PV acc T slope (test code = 8135385238) CONDE BP EF (test 43.00 % code = 2684676483) LA VOL 2C (test code 138.00 ml = 3226733104) VALERIANO (test code = The left ventricle VALERIANO) chamber size is mildly enlarged. There is mild left ventricular hypertrophy. Left Ventricular ejection fraction is 45 - 50%. Left atrium size is severely dilated. Right atrium size is mildly enlarged. There is moderate mitral valve regurgitation. Mild pulmonary hypertension present. Left VentricleThe left ventricular chamber size is mildly enlarged. Left Ventricular ejection fraction is 45 - 50%. There is mild left ventricularRight VentricleNormal right ventricular size and global function.Left AtriumLA size is severely dilated.Right AtriumThe right atrium is mildly dilated.Mitral ValveModerate mitral valve regurgitation.Tricuspid ValveMild tricuspid valve regurgitation. Mild pulmonary hypertension present.Aortic ValveNo evidence of significant aortic regurgitation. No evidence of aortic valve stenosis.PericardiumNo pericardial effusion seen. [facility] RNA [Presence] in Respiratory specimen by LANG with probe [id number] 23:11:03 Test Item Value Reference Range Interpretation Comments SARS-CoV-2 (COVID-19) RNA Not detected [Presence] in Respiratory specimen by LANG with probe detection (test code = 27125-1) Whether patient is employed in a Unknown healthcare setting (test code = 81905-4) Whether the patient has symptoms Unknown related to condition of interest (test code = 42213-4) Whether the patient was Unknown hospitalized for condition of interest (test code = 48921-1) Whether the patient was admitted Unknown to intensive care unit (ICU) for condition of interest (test code = 85628-5) Whether patient resides in a Unknown congregate care setting (test code = 23594-9) status (test code = Unknown 90882-2) Date and time of symptom onset Unknown (test code = 32667-9) [facility] (COVID-19) RNA [Presence] in Respiratory specimen by LANG with probe [id number] 11:45:59 Test Item Value Reference Range Interpretation Comments SARS-CoV-2 (COVID-19) RNA Not detected Not-Detected [Presence] in Respiratory specimen by LANG with probe detection (test code = 47193-2) Whether patient is employed in a healthcare setting (test code = 37610-8) Whether the patient has symptoms related to condition of interest (test code = 89636-0) Patient was hospitalized because of this condition (test code = 23240-1) Whether the patient was admitted to intensive care unit (ICU) for condition of interest (test code = 15552-4) Whether patient resides in a congregate care setting (test code = 95233-1) [facility]-CoV-2 (COVID-19) RNA [Presence] in Respiratory specimen by LANG with probe [id number] 05:28:15 Test Item Value Reference Range Interpretation Comments SARS-CoV-2 (COVID-19) RNA Not detected Not-Detected [Presence] in Respiratory specimen by LANG with probe detection (test code = 44808-5) [facility]-CoV-2 (COVID-19) RNA [Presence] in Respiratory specimen by LANG with probe [id number] 23:52:31 Test Item Value Reference Range Interpretation Comments SARS-CoV-2 (COVID-19) RNA Not detected Not-Detected [Presence] in Respiratory specimen by LANG with probe detection (test code = 60317-2) [facility]
[2022-06-08 05:05] LABS: Absolute Lymphocytes (CBC) 1.6 K/uL (0.7-4.9); Lymphocytes % 15.7 % (15.3-44.8); MCV 79.3 fL (80-100); MPV 7.2 fL (7.6-11.3); RBC Red Blood Cell Count 2.24 M/uL (3.86-4.86)
[2022-06-08 05:06] LABS: Hematocrit 17.7 % (36.0-45.0)
[2022-06-08 05:15] LABS: Potassium 3.7 mmol/L (3.5-5.1); Troponin High Sensitivity 36.7 pg/mL (<58.9)
--- NOTE | 2022-06-08 05:16 | EDPHYS ---
Physician Documentation [facility] Name: Latricia Cadet Age: 71 yrs Sex: Female : 1950 Arrival Date: 06/08/2022 Time: 03:19 Bed 16 Private MD: ED Physician Nicho Ellison HPI: 06/08 03:42 This 71 yrs old Female presents to ER via EMS with complaints of chest pain. rn 03:42 The patient or guardian reports chest pain that is located primarily in the substernal rn area. Onset: 2 hour(s) ago. The pain does not radiate. Associated signs and symptoms: Pertinent positives: None. Pertinent negatives: abdominal pain, cough, diaphoresis, shortness of breath, syncope, vomiting. The chest pain is described as aching. Duration: The patient or guardian reports a single episode, that is still ongoing. Modifying factors: The symptoms are alleviated by nothing. the symptoms are aggravated by nothing. Severity of pain: At its worst the pain was moderate in the emergency department the pain is unchanged. The patient has experienced similar episodes in the past. The patient has not recently seen a physician. Pt reports chest pain central, woke her up 2 hours ago, not improving. Has had this before and told unclear etiology. has also had multiple heart attacks. No trauma. Doesn't feel ill. Is also dialysis patient. Reports 3 weeks of right 2nd/3rd fingers "changing color" and is supposed to have procedure tomorrow to see "if blockage in right arm". . Historical: - Allergies: 03:30 No Known Allergies; as6 - PMHx: 03:30 angina pectoris; CHF; COPD; Diabetes - NIDDM; heart attack; Hypertension; insomnia; as6 kidney disease; Rheumatoid Arthritis; Sleep Apnea; - PSHx: 03:30 HD Fistula - Right arm; hysterectomy; pacemaker; as6 - Immunization history:: Client reports receiving the 2nd dose of the Covid vaccine, Flu vaccine status is unknown. - Social history:: Smoking status: Patient denies any tobacco usage or history of. - Family history:: not pertinent. - Hospitalizations: : No recent hospitalization is reported. ROS: 03:42 Constitutional: Negative for fever, chills, and weight loss, Cardiovascular: Negative rn for palpitations, and edema, Respiratory: Negative for shortness of breath, cough, wheezing Abdomen/GI: Negative for abdominal pain, nausea, vomiting, diarrhea, and constipation, Back: Negative for injury and pain, MS/Extremity: Negative for injury and deformity, Skin: Negative for injury, rash, and discoloration, Neuro: Negative for headache, weakness, numbness, tingling, and seizure. Exam: 03:42 Constitutional: This is a well developed, well nourished patient who is awake, alert, rn and in no acute distress. Head/Face: Normocephalic, atraumatic. Eyes: Periorbital areas with no swelling, redness, or edema. Cardiovascular: Regular rate and rhythm. No pulse deficits. Respiratory: No increased work of breathing, no retractions or nasal flaring. Abdomen/GI: Soft, non-tender Skin: Warm, dry, right 2nd/3rd fingertips with small areas of denuded skin and possibly dry gangrene. MS/ Extremity: NO cyanosis Neuro: Awake and alert, GCS 15 03:59 ECG was reviewed by the Attending Physician. rn Vital Signs: 03:29 BP 142 / 43; Pulse 80; Resp 19 S; Temp 98.8(O); Pulse Ox 99% on R/A; Weight 60.78 kg as6 (R); Height 5 ft. 1 in. (154.94 cm) (R); Pain 10/10; 04:01 BP 140 / 43; Pulse 80; Resp 19 S; Pulse Ox 100% on 2 lpm NC; as6 05:49 BP 131 / 43; Pulse 80; Resp 17 S; Pulse Ox 100% on 2 lpm NC; as6 03:29 Body Mass Index 25.32 (60.78 kg, 154.94 cm) as6 MDM: 03:22 Patient medically screened. rn 05:13 Differential diagnosis: acute myocardial infarction, acute pericarditis, anxiety, rn coronary artery disease chest wall pain, pneumonia, pneumothorax, pulmonary embolus, stable angina, unstable angina. HEART Score: History: Moderately Suspicious (1), ECG: Non specific repolarization disturbance / LBTB / PM (1), Age: > or = 65 years (2), Risk Factors: > or = 3 Risk factors for atherosclerotic disease (2), Troponin: < or = 1 x Normal Limit (0), Total Score = 6. Data reviewed: vital signs, nurses notes, lab test result(s), EKG, and as a result, I will admit patient. Counseling: I had a detailed discussion with the patient and/or guardian regarding: the historical points, exam findings, and any diagnostic results supporting the discharge/admit diagnosis, lab results, radiology results, the need for further work-up and treatment in the hospital. Response to treatment: the patient's symptoms have mildly improved after treatment, and as a result, I will admit patient. 06/08 03:31 Order name: Basic Metabolic Panel rn 06/08 03:31 Order name: CBC with Diff rn 06/08 03:31 Order name: NT PRO-BNP rn 06/08 03:31 Order name: Troponin HS rn 06/08 04:53 Order name: SARS RAPID la1 06/08 05:09 Order name: CBC with Automated Diff; Complete Time: 05:12 EDMS 06/08 03:31 Order name: XRAY Chest (1 view) rn 06/08 03:31 Order name: EKG; Complete Time: 05:12 rn 06/08 03:31 Order name: Cardiac monitoring; Complete Time: 03:33 rn 06/08 03:31 Order name: Lower Extremity Artery Uni Ltd US rn 06/08 05:11 Order name: Type And Screen la1 06/08 05:15 Order name: Basic Metabolic Panel EDMN 06/08 05:15 Order name: Troponin High Sensitivity EDMN 06/08 05:15 Order name: NT PRO-BNP EDMN 06/08 03:31 Order name: EKG - Nurse/Tech; Complete Time: 03:49 rn 06/08 03:31 Order name: IV Saline Lock; Complete Time: 03:58 rn 06/08 03:31 Order name: Labs collected and sent; Complete Time: 03:58 rn 06/08 03:31 Order name: O2 Per Protocol; Complete Time: 03:33 rn 06/08 03:31 Order name: O2 Sat Monitoring; Complete Time: 03:33 rn EC:59 Rate is 80 beats/min. Rhythm is regular. QRS [place] is Normal. [place] interval is normal. QRS rn interval is normal. QT interval is normal. No Q waves. T waves are Normal. No ST changes noted. Clinical impression: paced rhythm. Interpreted by me. Reviewed by me. Administered Medications: No medications were administered Disposition Summary: 06/08/22 05:15 Hospitalization Ordered Hospitalization Status: Observation rn Provider: Des Ellison rn Location: Telemetry/MedSurg (observation) rn Condition: Stable rn Problem: new rn Symptoms: have improved rn Bed/Room Type: Standard rn Room Assignment: 427(06/08/22 05:20) mw Diagnosis - Chest pain, unspecified rn - End stage renal disease rn Forms: - Medication Reconciliation Form rn - SBAR form rn Signatures: Dispatcher [employer] Mary Thibodeaux RN RN mw Nicho Ellison MD MD rn Slawson, Ashby, RN RN as6 Corrections: (The following items were deleted from the chart) 05:19 05:15 rn mw 05:20 05:19 428 mw mw
--- NOTE | 2022-06-08 05:16 | ER ---
Nurse's Notes [facility] Name: Latricia Cadet Age: 71 yrs Sex: Female : 1950 Arrival Date: 06/08/2022 Time: 03:19 Bed 16 Private MD: Diagnosis: Chest pain, unspecified;End stage renal disease Presentation: 06/08 03:29 Chief complaint: EMS states: called out for chest pain that started around 2 am this as6 morning. Coronavirus screen: At this time, the client does not indicate any symptoms associated with coronavirus-19. Ebola Screen: No symptoms or risks identified at this time. Initial Sepsis Screen: Does the patient meet any 2 criteria? No. Patient's initial sepsis screen is negative. Does the patient have a suspected source of infection? No. Patient's initial sepsis screen is negative. Risk Assessment: Do you want to hurt yourself or someone else? Patient reports no desire to harm self or others. Onset of symptoms was June 08, 2022 at 02:00. 03:29 Method Of Arrival: EMS: [facility] as6 03:29 Acuity: JAKE 3 as6 Historical: - Allergies: 03:30 No Known Allergies; as6 - PMHx: 03:30 angina pectoris; CHF; COPD; Diabetes - NIDDM; heart attack; Hypertension; insomnia; as6 kidney disease; Rheumatoid Arthritis; Sleep Apnea; - PSHx: 03:30 HD Fistula - Right arm; hysterectomy; pacemaker; as6 - Immunization history:: Client reports receiving the 2nd dose of the Covid vaccine, Flu vaccine status is unknown. - Social history:: Smoking status: Patient denies any tobacco usage or history of. - Family history:: not pertinent. - Hospitalizations: : No recent hospitalization is reported. Screenin:58 [facility] ED Fall Risk Assessment (Adult) History of falling in the last 3 months, as6 including since admission No falls in past 3 months (0 pts) Confusion or Disorientation No (0 pts) Intoxicated or Sedated No (0 pts) Impaired Gait Yes (1 pt) Mobility Assist Device Used No (0 pt) Altered Elimination No (0 pt) Score/Fall Risk Level 0 - 2 = Low Risk. Abuse screen: Denies threats or abuse. Denies injuries from another. Nutritional screening: No deficits noted. Tuberculosis screening: No symptoms or risk factors identified. Assessment: 03:30 General: Appears uncomfortable, Behavior is calm, cooperative, quiet. Pain: Complains as6 of pain in chest Pain does not radiate. Pain: Complains of pain in palmar aspect of distal phalanx of right middle finger and palmar aspect of distal phalanx of right index finger. Pain: Complains of pain in chest. Neuro: Level of Consciousness is awake, alert, obeys commands, Oriented to person, place, time, situation. Cardiovascular: Reports chest pain. Respiratory: Respiratory effort is even, unlabored, Respiratory pattern is regular, symmetrical. Derm: Wound noted palmar aspect of distal phalanx of right ring finger and palmar aspect of distal phalanx of right middle finger Wound is necrotic. Vital Signs: 03:29 BP 142 / 43; Pulse 80; Resp 19 S; Temp 98.8(O); Pulse Ox 99% on R/A; Weight 60.78 kg as6 (R); Height 5 ft. 1 in. (154.94 cm) (R); Pain 10/10; 04:01 BP 140 / 43; Pulse 80; Resp 19 S; Pulse Ox 100% on 2 lpm NC; as6 05:49 BP 131 / 43; Pulse 80; Resp 17 S; Pulse Ox 100% on 2 lpm NC; as6 03:29 Body Mass Index 25.32 (60.78 kg, 154.94 cm) as6 ED Course: 03:19 Patient arrived in ED. as6 03:22 Nicho Ellison MD is Attending Physician. rn 03:29 Clemente Ceja RN is Primary Nurse. as6 03:30 Triage completed. as6 03:30 Arm band placed on. as6 03:50 Inserted saline lock: 20 gauge in left forearm, using aseptic technique. Blood as6 collected. 03:59 Bed in low position. Call light in reach. Side rails up X2. as6 05:15 Des Ellison MD is Hospitalizing Provider. rn 05:50 No provider procedures requiring assistance completed. Patient admitted, IV remains in as6 place. Administered Medications: No medications were administered Medication: 03:58 VIS not applicable for this client. as6 Outcome: 05:15 Decision to Hospitalize by Provider. rn 05:50 Admitted to Tele accompanied by tech, via stretcher, with chart. as6 05:50 Condition: stable 05:50 Instructed on the need for admit. 06:30 Patient left the ED. as6 Signatures: Nicho Ellison MD MD rn Slawson, Ashby, RN RN as6
--- NOTE | 2022-06-08 05:48 | P.HP ---
Certification for Inpatient Patient admitted to: Observation With expected LOS: <2 Midnights Patient will require the following post-hospital care: None Practitioner: I am a practitioner with admitting privileges, knowledge of patient current condition, hospital course, and medical plan of care. Services: Services provided to patient in accordance with Admission requirements found in Title 42 Section 412.3 of the Code of Federal Regulations <LennieRick Black - Last Filed: 06/08/22 05:44> Patient History Date of Service: 06/08/22 Reason for admission: Chest pain, ESRD, anemia History of Present Illness: 71-year-old female with history of ESRD on HD TTS, diabetes mellitus type 2insulin-dependent, CHF, hypertension, hyperlipidemia, DVT noncompliant with anticoagulation, anemia chronic disease presents emergency part of her chest pain. She reports her pain began around 0200 this morning woke her up from sleep pain is described as pressure-like nonradiating. She is evaluated in the emergency department initial absence of a troponin was negative labs redemonstrated ESRD, she is significantly anemic with a hemoglobin of 5.9 and hematocrit of 17.7 she does have baseline anemia of chronic disease although this is lower than previous she denies taking anticoagulation also denies any melena, hematochezia or hematemesis. - Past Medical/Surgical History Diabetic: Yes -: Diabetes mellitus type 2-insulin dependent -: Rheumatoid arthritis -: Hypertension -: Hyperlipidemia -: Chronic congestive heart failure-unknown EF -: ESRD on HD -: CAD -: L ankle fusion -: hysterectomy -: Dialysis catheter placement and removal -: Cholecystectomy Psychosocial/ Personal History: Patient lives with her - Family History Family History: Reviewed- Non-Contributory - Social History Smoking Status: Never smoker Alcohol use: No CD- Drugs: No Caffeine use: No Place of Residence: Home <Rick Hogue - Last Filed: 06/08/22 05:44> Date of Service: 06/08/22 <Des Ellison - Last Filed: 06/08/22 22:13> Allergies No Known Allergies Allergy (Verified 01/02/22 02:33) Home Medications: Furosemide [Lasix] 80 mg PO DAILY 04/14/20 Isosorbide Mononitrate [Isosorbide Mononitrate ER] 60 mg PO DAILY 04/14/20 Pramipexole [Mirapex*] 1 mg PO BEDTIME 04/14/20 Escitalopram [Lexapro*] 10 mg PO BEDTIME 11/27/21 Pantoprazole [Protonix Tab*] 40 mg PO DAILY 11/27/21 Doxazosin Mesylate 4 mg PO DAILY 01/02/22 Sevelamer Carbonate [Renvela*] 2 tab PO TIDWM 01/02/22 Rivastigmine Tartrate [Rivastigmine] 1 cap PO BID 05/03/22 Apixaban [Eliquis *] 2.5 mg PO BID #30 tab 05/08/22 Ertapenem Na [Invanz] 1 gm IVPB DAILY #5 ml 05/08/22 Heparin [Heparin 1,000 units/mL *] 4,000 unit IV EVERY HD PRN vial 05/08/22 Heparin [Heparin 1,000 units/mL *] 6,000 unit IV EVERY HD PRN vial 05/08/22 Review of Systems 10-point ROS is otherwise unremarkable Cardiovascular: Chest Pain <AttemaRick Wayne - Last Filed: 06/08/22 05:44> Physical Examination - Physical Exam General: Alert, In no apparent distress, Oriented x3 HEENT: Atraumatic, PERRLA, Mucous membr. moist/pink, EOMI, Sclerae nonicteric Neck: Supple, 2+ carotid pulse no bruit, No LAD, Without JVD or thyroid abnormality Respiratory: Clear to auscultation bilaterally, Normal air movement Cardiovascular: Regular rate/rhythm, Normal S1 S2 Capillary refill: <2 Seconds Gastrointestinal: Normal bowel sounds, No tenderness Musculoskeletal: No tenderness Integumentary: Other (Wound to distal RUE 3rd/4th digit/appears necrotic/dry gangrene) Neurological: Normal gait, Normal speech, Normal strength at 5/5 x4 extr, Normal tone, Normal affect - Studies Laboratory Data (last 24 hrs) 06/08/22 03:48: WBC 10.30, Hgb 5.9 L*, Hct 17.7 L*, Plt Count 416 H 06/08/22 03:48: Sodium 134 L, Potassium 3.7, BUN 60 H, Creatinine 4.62 H, Glucose 186 H 06/08/22 03:31: WBC Cancelled, Hgb Cancelled, Hct Cancelled, Plt Count Cancelled 06/08/22 03:31: Sodium Cancelled, Potassium Cancelled, BUN Cancelled, Creatinine Cancelled, Glucose Cancelled <Rick Hogue - Last Filed: 06/08/22 05:44> - Studies Laboratory Data (last 24 hrs) 06/08/22 03:48: WBC 10.30, Hgb 5.9 L*, Hct 17.7 L*, Plt Count 416 H 06/08/22 03:48: Sodium 134 L, Potassium 3.7, BUN 60 H, Creatinine 4.62 H, Glucose 186 H 06/08/22 03:31: WBC Cancelled, Hgb Cancelled, Hct Cancelled, Plt Count Cancelled 06/08/22 03:31: Sodium Cancelled, Potassium Cancelled, BUN Cancelled, Creatinine Cancelled, Glucose Cancelled <Des Ellison - Last Filed: 06/08/22 22:13> Assessment and Plan - Plan Assessment: Chest pain rule ACS ESRD on HD TTS Wounds to right third and fourth fingersdistal tip Anemia of chronic disease Diabetes was type IIinsulin-dependent History of DVTnoncompliant with anticoagulation Plan: Chest pain rule ACS: Trend troponins, monitor on telemetry, cardiology consulted. Patient unclear of her last cardiac catheterization or cardiology evaluation. Initial troponin negative. ESRD on HD TTS: Nephrology consulted, patient goes to dialysis TTS, missed Monday. Will also need blood transfusion. Wounds to right third and fourth fingersdistal tip: Arterial Doppler right upper extremity biphasic flow, no occlusive findings. Patient was scheduled for a outpatient procedure to further evaluate during the day today in [place]. Anemia of chronic disease: 1 unit packed blood cells ordered to be transfused, patient denies melena, hematochezia, hematemesis. Will order further anemia work-up. Diabetes was type IIinsulin-dependent: ACH S Accu-Chek, sliding scale insulin, A1c. History of DVTnoncompliant with anticoagulation: Obtain venous Dopplers bilaterally to evaluate for DVT as patient been noncompliant with her Eliquis. DVT PPX: Heparin Code status: Full Discharge Plan: Home Plan to discharge in: 24 Hours - Advance Directives Does patient have a Living Will: No Does patient have a Durable POA for Healthcare: No - Code Status/Comfort Care Code Status Assessed: Yes (Full code) Critical Care: No Time Spent Managing Pts Care (In Minutes): 55 <Rick Hogue - Last Filed: 06/08/22 05:44> - Plan patient seen/examined on rounds this AM no significant change since admission just a few hours prior awaiting blood transfusion nephrology contacted, plan for HD today pt denies bleeding, no dark stools check iron studies off home meds for several months <Des Ellison - Last Filed: 06/08/22 22:13>
[2022-06-08 05:55] LABS: SARS-CoV-2 Antigen Rapid Res Negative (Negative)
[2022-06-08] MEDS ORDERED: NA CHLORIDE 0.9% 250 ML IV SCH (06:00)
[2022-06-08 06:50] VITALS: BMI 25.4
[2022-06-08] MEDS ORDERED: MORPHINE 2 MG/ML SYR IV PRN (07:00)
[2022-06-08] MEDS ORDERED: ONDANSETRON 4 MG/2 ML VIAL IV PRN (07:00)
[2022-06-08] MEDS: INSULIN -REGULAR HUMAN 50 UNIT/0.5 ML ML SQ SCH ×4 (07:30→21:00)
[2022-06-08 08:12] VITALS: O2SAT 100
[2022-06-08] MEDS: HEPARIN 5000 UNIT/ML 1 ML VIAL SQ SCH ×2 (08:24→21:00)
[2022-06-08] MEDS: ASPIRIN EC 81 MG TAB PO SCH (08:24)
--- NOTE | 2022-06-08 10:53 | RAD REPORT ---
EXAM DESCRIPTION: US - Extrem Venous W Compress Trevin - 06/08/2022 10:17 am CLINICAL HISTORY: Hx DVT, non-compliant with blood thinners Bilateral leg edema and swelling. COMPARISON: Upper Ext Artery Uni Trevin dated 06/08/2022 TECHNIQUE: Real-time sonographic interrogation of the left and right lower extremity deep venous sys tems was performed. FINDINGS: Normal compressibility, flow augmentation, phasic flow and spontaneous flow is identified in both the left and right lower extremity deep venous systems. IMPRESSION: No sonographic evidence of left or right lower extremity deep venous thrombosis.
--- NOTE | 2022-06-08 11:11 | RAD REPORT ---
EXAM DESCRIPTION: X-ray single view chest. CLINICAL HISTORY: 71 years Female, CHEST PAIN COMPARISON: 05/02/2022 TECHNIQUE: Single portable x-ray view of the chest performed on 06/08/2022 at 6:09 AM FINDINGS: The lungs are well-expanded. No focal airspace process is identified. The lateral costophr enic sulci are grossly clear. There is no evidence of a pneumothorax. The cardiac silhouette is stable and is mildly prominent. The mediastinal contours are normal. No acute osseous abnormality is identified. No acute soft tissue abnormalities are seen. Vascular stents project over the left upper extremity. T here are surgical clips along the left side of the neck. Lines and tubes: There is a stable right IJ dual-lumen central venous catheter which terminates in the region of the superior vena cava and cavoatrial junction. There is a grossly stable left subclavi an multilead pacemaker. Free air: None IMPRESSION: 1. No evidence of acute intrathoracic disease. 2. Stable prominence of the cardiac silhouette. 3. Stable life support lines as described above. Electronically signed by: Jelena Albarran DO 06/08/2022 6:31 AM ASSISTANT PROFESSOR Due to temporary technical issues with the PACS/Fluency reporting system, reports are being signed by the in house radiologists without review as a courtesy to insure prompt reporting. The interpreting radiologist is fully responsible for the content of the report.
[2022-06-08 11:15] LABS: Ferritin 153.8 ng/mL (8-388); Troponin High Sensitivity 24.8 pg/mL (<58.9)
[2022-06-08] MEDS ORDERED: NA CHLORIDE 0.9% 500 ML ONE (11:33)
--- NOTE | 2022-06-08 15:04 | RAD REPORT ---
EXAM DESCRIPTION: Ultrasound Upper Extremity Arterial Doppler COMPARISON: None. CLINICAL HISTORY: Rule out occlusion TECHNIQUE: Multiple grayscale, color, and spectral Doppler images of the right upper extremity arter ies. FINDINGS: Right: The subclavian, axillary, radial, and ulnar arteries demonstrate biphasic waveforms . Elevated resistive indices are present. Elevated velocities are present in the brachial artery. Pat ent graft. Velocities range from 21 - 307 cm/s. IMPRESSION: Elevated velocity in the brachial artery measures 307 cm/sec. Patent graft. No focal occ lusion. Elevated resistive indices in the remaining arteries of the right upper extremity are suggest eveline of severe peripheral artery disease. Electronically signed by: Reginaldo Patel MD 06/08/2022 7:01 AM RETAIL DELIVERY DRIVER Due to temporary technical issues with the PACS/Fluency reporting system, reports are being signed by the in house radiologists without review as a courtesy to insure prompt reporting. The interpreting radiologist is fully responsible for the content of the report.
[2022-06-08 16:54] LABS: Hematocrit 22.5 % (36.0-45.0)
[2022-06-08] MEDS ORDERED: ATORVASTATIN 40 MG TAB PO SCH (21:00)
[2022-06-09 04:14] LABS: Absolute Lymphocytes (CBC) 1.5 K/uL (0.7-4.9); Lymphocytes % 19.9 % (15.3-44.8); MCV 80.4 fL (80-100); MPV 7.1 fL (7.6-11.3); RBC Red Blood Cell Count 2.74 M/uL (3.86-4.86)
[2022-06-09 04:27] LABS: AST/SGOT 7 U/L (15-37); Albumin 1.7 g/dL (3.4-5.0); Alkaline Phosphatase 102 U/L (45-117); BUN Blood Urea Nitrogen 31 mg/dL (7-18); Bicarbonate 27 mmol/L (21-32); Bilirubin Total 0.6 mg/dL (0.2-1.0); Glomerular Filtration Rate 16 ml/min (=/>90); Glucose Level 117 mg/dL (74-106); Potassium 3.5 mmol/L (3.5-5.1); Protein, Total 6.1 g/dL (6.4-8.2); Sodium Level 139 mmol/L (136-145)
[2022-06-09 04:28] LABS: ALT/SGPT < 10 U/L (13-56)
[2022-06-09] MEDS: INSULIN -REGULAR HUMAN 50 UNIT/0.5 ML ML SQ SCH (07:30)
[2022-06-09] MEDS: ASPIRIN EC 81 MG TAB PO SCH (07:50)
[2022-06-09] MEDS: HEPARIN 5000 UNIT/ML 1 ML VIAL SQ SCH (07:50)
[2022-06-09 08:26] VITALS: BP 122/59; TEMP 96.9
--- NOTE | 2022-06-09 09:25 | P.CNS ---
Date of Consult: 06/08/22 Chief Complaint: Chest pain, ESRD, anemia History of Present Illness: Pt is a 71 y/o female with past medical hx of esrd, hypertension presenting with complaints of shortness of breath adn a low hemoglobin. Presented here for transfusion. Pt recieved 2 untis. Renal is consulted for hemodialysis needs. Allergies No Known Allergies Allergy (Verified 01/02/22 02:33) Home Medications: Furosemide [Lasix] 80 mg PO DAILY 04/14/20 Isosorbide Mononitrate [Isosorbide Mononitrate ER] 60 mg PO DAILY 04/14/20 Pramipexole [Mirapex*] 1 mg PO BEDTIME 04/14/20 Escitalopram [Lexapro*] 10 mg PO BEDTIME 11/27/21 Pantoprazole [Protonix Tab*] 40 mg PO DAILY 11/27/21 Doxazosin Mesylate 4 mg PO DAILY 01/02/22 Sevelamer Carbonate [Renvela*] 2 tab PO TIDWM 01/02/22 Rivastigmine Tartrate [Rivastigmine] 1 cap PO BID 05/03/22 Apixaban [Eliquis *] 2.5 mg PO BID #30 tab 05/08/22 Ertapenem Na [Invanz] 1 gm IVPB DAILY #5 ml 05/08/22 Heparin [Heparin 1,000 units/mL *] 4,000 unit IV EVERY HD PRN vial 05/08/22 Heparin [Heparin 1,000 units/mL *] 6,000 unit IV EVERY HD PRN vial 05/08/22 - Past Medical/Surgical History Diabetic: Yes -: Diabetes mellitus type 2-insulin dependent -: Rheumatoid arthritis -: Hypertension -: Hyperlipidemia -: Chronic congestive heart failure-unknown EF -: ESRD on HD -: CAD -: L ankle fusion -: hysterectomy -: Dialysis catheter placement and removal -: Cholecystectomy Psychosocial/ Personal History: Patient lives with her - Social History Smoking Status: Unknown if ever smoked Alcohol use: No CD- Drugs: No Caffeine use: No Place of Residence: Home Review of Systems 10-point ROS is otherwise unremarkable Respiratory: Shortness of Breath Physical Examination Temp Pulse Resp BP Pulse Ox 96.9 F 79 16 122/59 L 99 06/09/22 08:00 06/09/22 08:00 06/09/22 08:00 06/09/22 08:00 06/09/22 08:00 General: Alert, In no apparent distress HEENT: Atraumatic, PERRLA, Mucous membr. moist/pink, EOMI, Sclerae nonicteric Neck: Supple, 2+ carotid pulse no bruit, No LAD, Without JVD or thyroid abnormality Respiratory: Clear to auscultation bilaterally, Normal air movement Cardiovascular: Regular rate/rhythm, Normal S1 S2 Capillary refill: <2 Seconds Gastrointestinal: Normal bowel sounds, No tenderness Musculoskeletal: No tenderness Integumentary: No rashes Neurological: Normal gait, Normal speech, Normal tone, Normal affect Lymphatics: No axilla or inguinal lymphadenopathy Conclusions/Impression: Problems ESRD needing hemodialysis Anemia Hypertension Plan Will dialyze for volume and clearance S/P 2 units prbc Renal diet Other management per primary team
--- NOTE | 2022-06-09 22:27 | P.DS ---
Admission Date: 06/08/22 Discharge Date: 06/09/22 Disposition: AMA-LEFT AGAINST MEDICAL ADVIC Reason for Admission: Chest pain, ESRD, anemia Hospital Course: Patient received 2u PRBC with dialysis. Cardiology consulted, recommended lexiscan due to chest pain and history / risk factors. On the following morning, 06/09, patient did not want to continue treatment/workup in the hospital. Refused some home medications. Left AMA. Risk of morbidity and possibly were explained. She expressed understanding, and decided to leave against medical advice. Advised to continue her home medications as previously prescribed. Vital Signs/Physical Exam: Temp Pulse Resp BP Pulse Ox 96.9 F 79 16 122/59 L 99 06/09/22 08:00 06/09/22 08:00 06/09/22 08:00 06/09/22 08:00 06/09/22 08:00 Laboratory Data at Discharge: WBC 7.70 K/uL (4.3-10.9) 06/09/22 03:48 Hgb 7.5 g/dL (12.0-15.0) L 06/09/22 03:48 Hct 22.0 % (36.0-45.0) L 06/09/22 03:48 Plt Count 401 K/uL (152-406) 06/09/22 03:48 Sodium 139 mmol/L (136-145) D 06/09/22 03:48 Potassium 3.5 mmol/L (3.5-5.1) 06/09/22 03:48 BUN 31 mg/dL (7-18) H 06/09/22 03:48 Creatinine 2.95 mg/dL (0.55-1.02) H 06/09/22 03:48 Glucose 117 mg/dL (74-106) H 06/09/22 03:48 Total Bilirubin 0.6 mg/dL (0.2-1.0) 06/09/22 03:48 AST 7 U/L (15-37) L 06/09/22 03:48 ALT < 10 U/L (13-56) L 06/09/22 03:48 Alkaline Phosphatase 102 U/L (45-117) 06/09/22 03:48 Home Medications: Furosemide [Lasix] 80 mg PO DAILY 04/14/20 Isosorbide Mononitrate [Isosorbide Mononitrate ER] 60 mg PO DAILY 04/14/20 Pramipexole [Mirapex*] 1 mg PO BEDTIME 04/14/20 Escitalopram [Lexapro*] 10 mg PO BEDTIME 11/27/21 Pantoprazole [Protonix Tab*] 40 mg PO DAILY 11/27/21 Doxazosin Mesylate 4 mg PO DAILY 01/02/22 Sevelamer Carbonate [Renvela*] 2 tab PO TIDWM 01/02/22 Rivastigmine Tartrate [Rivastigmine] 1 cap PO BID 05/03/22 Apixaban [Eliquis *] 2.5 mg PO BID #30 tab 05/08/22 Ertapenem Na [Invanz] 1 gm IVPB DAILY #5 ml 05/08/22 Heparin [Heparin 1,000 units/mL *] 4,000 unit IV EVERY HD PRN vial 05/08/22 Heparin [Heparin 1,000 units/mL *] 6,000 unit IV EVERY HD PRN vial 05/08/22
== END 2022-06-09 08:25 | disposition left against medical advice (07) ==
LOC: ER 03:19 → 4TH 05:24
PROVIDERS: ADMIT Hospitalist; ATTEND Hospitalist
PROC: 30233N1 Transfusion of Nonautologous Red Blood Cells into Peripheral Vein, Percutaneous Approach (ICD-10-PCS; principal; 2022-06-08)
DX: R07.9 Chest pain, unspecified (principal); N18.6 End stage renal disease; D63.1 Anemia in chronic kidney disease; E11.22 Type 2 diabetes mellitus with diabetic chronic kidney disease; I12.0 Hypertensive chronic kidney disease with stage 5 chronic kidney disease or end stage renal disease; I50.9 Heart failure, unspecified; E78.5 Hyperlipidemia, unspecified; I82.509 Chronic embolism and thrombosis of unspecified deep veins of unspecified lower extremity; S61.202A Unspecified open wound of right middle finger without damage to nail, initial encounter; S61.204A Unspecified open wound of right ring finger without damage to nail, initial encounter; X58.XXXA Exposure to other specified factors, initial encounter; Z53.29 Procedure and treatment not carried out because of patient's decision for other reasons; Z20.822 Contact with and (suspected) exposure to COVID-19; Z79.01 Long term (current) use of anticoagulants; Z91.14 Patient's other noncompliance with medication regimen; Z99.2 Dependence on renal dialysis; Z79.4 Long term (current) use of insulin
CPT/HCPCS: 36430; 85025 ×2; 80048; 36415 ×2; 86900; 86850; 86901; 82947 ×4; 85018; 85014; 83036; 84484 ×3; 82728; 83540; 80053; 83880; 84466; 71045; 90935; 93931; 93970; 99285; 87811; J1644 ×2; P9016 ×2; J7040

== ENCOUNTER 2022-07-19 07:24 | Inpatient (IN) | payer OTHER ==
--- OUTSIDE RECORDS SUMMARY | 2022-07-19 07:34 | XMS REPORT | Continuity of Care Document ---
:1950 Author Organization [facility] t Address [address] [place] [address] Care Team Providers Name Role Phone Pcp, Patient Does Not Have A Primary Care Physician [id number] Greg Fuentes Attending Clinician Unavailable Doctor Unassigned, [place] Attending Clinician Unavailable uLc Alvarez Attending Clinician Alannah Renner MD Attending Clinician Annalee Bey MD Attending Clinician Mauro Mendoza MD Attending Clinician ANNALEE BEY Attending Clinician Unavailable ALANNAH RENNER Attending Clinician Unavailable Trinidad Menard MD Attending Clinician Corrine Osuna MD Attending Clinician Natasha HOLLIDAY, Edwin Toribio Attending Clinician [phone] John HOLLIDAY, Shanon Vidal Attending Clinician [phone] Tim HOLLIDAY, Tammy Thompson Attending Clinician Armen HOLLIDAY, Edwin Attending Clinician Scot HOLLIDAY, Tasneem Attending Clinician Savannah HOLLIDAY, Annalee Attending Clinician Amaury HOLLIDAY, Leodan Attending Clinician Ru HOLLIDAY, Josemanuel Attending Clinician Andre Navarro Attending Clinician Juan BETH, Grazyna Magana Attending Clinician Abbie HOLLIDAY, Joanna Attending Clinician Provider, Unknown Attending Clinician Unavailable Zulema Donald DO Attending Clinician Michaela Attending Clinician Unavailable MD CORRINE OSUNA Attending Clinician Unavailable DAVID HIGUERA Attending Clinician Unavailable SHAKEEL NARANJO Attending Clinician Unavailable SARAI SANDRA Attending Clinician Unavailable Radha Cabrera Admitting Clinician Unavailable SHIRLEY PARKS Admitting Clinician Unavailable CORRINE OSUNA Admitting Clinician Unavailable TAMYM DUMONT Admitting Clinician Unavailable Michaela Admitting Clinician Unavailable MD CORRINE OSUNA Admitting Clinician Unavailable SARAI SANDRA Admitting Clinician Unavailable Payers Payer Name Policy Type Policy Number Effective Date Expiration Date S gus [facility] [id number] 2021 (NON-CONTRACTED) 00:00:00 [facility] [id number] 2021 [facility] 00:00:00 [facility] - [id number] LOCATED WITHIN [facility] [place] Problems Condition Condition Condition Status Onset Resolution Last Treating Co mments Source Name Details Category Date Date Treatment Clinician Date Complicati Complicati Disease Active [facility]: Me dical with with Center dialysis dialysis catheter catheter Diarrhea Diarrhea Disease Active Metho di 09-16 st 00:00: Hospita 00 l Chronic Chronic [...] Hyperglyce Disease Active M ethodi masood masood 1-11 st 00:00: Hospita 00 l Chest pain Chest pain Disease Active 2019-05 M ethodi 1-16 st 00:00: Hospita 00 l Chest pain Chest pain Disease Active 2019-05 M ethodi at rest at rest 115 st 00:00: Hospita 00 l Elevated Elevated Disease Active 2019-05 Metho di troponin troponin 15 st 00:00: Hospita 00 l Occlusion Occlusion Disease Active 2019-05 [facility]odi of left of left 05-25 st subclavian subclavian 00:00: Ho spita vein vein 00 l Complicati Complicati Disease Active 2019-05 M ethodi on of on of 05-22 vascular vascular 00:00: Hospit a access for access for 00 l dialysis dialysis Dehydratio Dehydratio Disease Active 0 M ethodi n n 10-25 st 00:00: Hospita 00 l Hypoglycem Hypoglycem Disease Active M ethodi ia ia 10-25 00:00: Hospita 00 l Edema of Edema of Disease Active Metho di left upper left upper 07-12 st extremity extremity 00:00: Hosp [facility] 00 [...] Acute Disease Active 2017-05 [facility] renal renal 1-13 st failure failure 00:00: Hospita 00 l [...] AVN Disease Active 2016-05 [facility] (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 st necrosis necrosis 00:00: Hospit a of [...] Active M ethodi rosis of rosis of 3 st [place] 00:00: Hospita coronary coronary 00 l artery of artery of [place] heart heart without without angina angina pectoris [...] M ethodi osis of osis of 08-16 st large large 00:00: Hospita intestine intestine 00 [...] (chronic 827 ity of kidney kidney 00:00: [place] disease) disease) 00 Medica l stage 4, stage 4, Branch GFR 15-29 GFR 15-29 ml/min ml/min Type 2 Type 2 Disease Active Overview: Univer s diabetes diabetes Formattin ity of mellitus mellitus g of this [facility] as with with note Medical diabetic diabetic might be Bran ch nephropath nephropath different y y from the original. follows with Dr. Ngo in [place] Neuropathy Neuropathy Disease Active Overview : Univers Formattin ity of g of this [place] note Medical might be Branch different from the original. in feet and legs Hyperchole Hyperchole Disease Active Overview : Univers steremia steremia Formattin ity of g of this [place] note Medical might be Branch different from the original. follows with Dr. Higuera HTN HTN Disease Active Overview: [facility] s (hypertens (hypertens Formattin ity of ion) ion) g of this [place] note Medical might be Branch different from the original. follows with Dr. Higuera Atrial Atrial Disease Active Overview: [facility] s fibrillati fibrillati Formattin ity of on on g of this [place] note Medical might be Branch different from the original. follows with Dr. Higuera Allergies, Adverse Reactions, Alerts Allergy Allergy Status Severity Reaction(s) Onset Inactive Treating Comm ents Source Name Type Date Date Clinician No Known DA Active U [facility] Allergie -17 Clear s 00:00: An 00 [facility] Hydrocod Propensi Active GI "not an Metho di one ty to Intolerance 06-02 allergy, st adverse 00:00: but it Hospita reaction 00 upsets my l s to stomach drug every time I take it" No Known DA Active U [facility] Allergie 01-30 Clear s 00:00: An 00 [facility] NO KNOWN Allergy Active [facility] NO KNOWN Drug Active [facility] ALLERGIE Class ity of S [facility] Family History Family Member Diagnosis Comments Start Date Stop Date Source Natural brother Cancer [facility] Natural brother Colon cancer [facility] Natural brother Lung cancer [facility] Maternal grandmother Brain cancer [facility] Maternal grandmother Cancer [facility] mother Cancer [facility] Natural mother Uterine cancer [facility] Natural sister Breast cancer [facility] Natural sister Cancer [facility] Social History Social Habit Start Date Stop Date Quantity Comments Source History [facility] Shinto Alcohol Std Drinks Hospit al Tobacco use and 2022-01-08 2022-01-[address] [facility] exposure 00:00:00 00:00:00 Medical Center Alcohol intake 2021-09-14 2021-09-14 Current Shinto 00:00:00 00:00:00 non-drinker of Hospital alcohol (finding) History [facility] 2020-04-05 2020-04-05 1 Shinto Alcohol Frequency 00:00:00 00:00:00 Hospita l History [facility] 2020-04-05 2020-04-05 1 Shinto Alcohol Binge 00:00:00 00:00:00 Hospital Sex Assigned At [address] [address] [facility] 00:00:00 00:[facility]:00 [facility] Center Smoking Status Start Date Stop Date Source Never smoker [facility] Medications Ordered Filled Start Stop Current Ordering Indication Dosage Frequency Signature Comments Components Source Medication Medication Date Date Medication? Clinician (SIG) Name Name aspirin 81 0 Yes 81mg QD Take [address] MG chewable 8-30 by mouth Luke s tablet 16:49: daily. [address] apixaban 0 Yes 2.5mg Q.5D Take 2.[address] (Eliquis) 8-30 mg by [facility]ukes 2.5 mg Tab 16:49: mouth 2 Medi keira tablet 03 (two) Center times daily. pramipexole 0 Yes 1mg QD Take [address] (MIRAPEX) 1 8-30 by mouth Luke s MG tablet 16:49: nightly. Medi keira [address] [place] [address] semaglutide Yes .25mg Inject [facility] (Ozempic) 8-30 0.25 mg [facility]ukes 0.25 mg or 16:49: subcutaneo M edical 0.5 mg(2 03 usly every Cente r mg/1.5 mL) 7 days PnIj Every Monday . pantoprazol Yes 40mg QD Take [address] e 8-30 by mouth [facility]ukes (PROTONIX) 16:49: daily. Medic al [address] [place] [address] tablet traZODone Yes 100mg QD Take [address] (DESYREL) 8-30 mg by [facility]ukes 100 MG 16:49: mouth Medical tablet 03 nightly. [place] aspirin 81 0 Yes 81mg QD Take [address] MG chewable 8-30 by mouth Luke s tablet 16:49: daily. [address] apixaban 0 Yes 2.5mg Q.5D Take 2.[address] (Eliquis) 8-30 mg by [facility]ukes 2.5 mg Tab 16:49: mouth 2 Medi keira tablet 03 (two) Center times daily. pramipexole 0 Yes 1mg QD Take [address] (MIRAPEX) 1 8-30 by mouth Luke s MG tablet 16:49: nightly. [facility] 03 [place] semaglutide 0 Yes .25mg Inject [facility] (Ozempic) 8-30 0.25 mg [facility]ukes 0.25 mg or 16:49: subcutaneo M edical 0.5 mg(2 03 usly every Cente r mg/1.5 mL) 7 days PnIj Every Monday . pantoprazol 0 Yes 40mg QD Take [address] e 8-30 by mouth [facility]ukes (PROTONIX) 16:49: daily. Medic al 40 MG 03 Center tablet traZODone 0 Yes 100mg QD Take [address] (DESYREL) 8-30 mg by Lukes 100 MG 16:49: mouth Medical tablet 03 nightly. [place] aspirin 81 0 Yes 81mg QD Take [address] MG chewable 8-30 by mouth Luke s tablet 16:49: daily. [facility] 03 [place] apixaban 0 Yes 2.5mg Q.5D Take 2.[address] (Eliquis) 8-30 mg by [facility]ukes 2.5 mg Tab 16:49: mouth 2 Medi keira tablet 03 (two) Center times daily. pramipexole Yes 1mg QD Take [address] (MIRAPEX) 1 8-30 by mouth Luke s MG tablet 16:49: nightly. [facility] 03 [place] semaglutide Yes .25mg Inject [facility] (Ozempic) 8-30 0.25 mg [facility]ukes 0.25 mg or 16:49: subcutaneo M edical 0.5 mg(2 03 usly every Cente r mg/1.5 mL) 7 days PnIj Every Monday . pantoprazol 0 Yes 40mg QD Take [address] e 8-30 by mouth [facility]ukes (PROTONIX) 16:49: daily. Medic al 40 MG 03 Center tablet traZODone 0 Yes 100mg QD Take [address] (DESYREL) 8-30 mg by Lukes 100 MG 16:49: mouth Medical tablet 03 nightly. [place] hydrALAZINE 2- No 25mg Q.[id number] Take [address] (APRESOLINE 8-30 08-30 [id number] by mouth 3 [facility]ukes ) 25 MG 11:55: 00:00 3D (three) Medica l tablet 27 :00 times Center daily. budesonide 2021- No 3mg QD Take [address] (ENTOCORT 01-1830 by mouth [facility] EC) 3 mg 24 [...] No 10U Inject [address] aspart 01-18 08-30 Units [facility]ukes U-100 11:55: 00:00 subcutaneo Medic al (NovoLOG) 27 :00 usly 3 Center 100 unit/mL (three) (3 mL) InPn times daily before meals. calcitrioL 2021- No .25ug QD Take 0.[address] (ROCALTROL) 01-18-30 mcg by [facility]ukes 0.25 MCG 11:55: 00:00 mouth Medical capsule 27 :00 daily. Center hydrALAZINE 2021- No 25mg Q.[id number] Take [address] (APRESOLINE 01-18- [id number] by mouth 3 [facility] ) 25 MG 11:55: 00:00 3D (three) Medica l tablet 27 :00 times Center daily. budesonide 2021- No 3mg QD Take [address] (ENTOCORT 01-18-30 by mouth [facility] EC) 3 mg 24 [...] 00:00 subcutaneo Me dical SEMGLEE) 27 :00 us Center 100 unit/mL nightly injection Use as directed . furosemide 2021- No 80mg Q.5D Take [address] (LASIX) 80 01-18 by mouth 2 Cam[facility] kes MG tablet 11:55: 00:00 (two) Medica l 27 :00 times Center daily. escitalopra 2021- No 10mg QD Take [address] m oxalate 01-18 by mouth Lukes (LEXAPRO) 11:55: 00:00 nightly. Med ical 10 MG 27 :00 Center tablet melatonin 2021- No 10mg QD Take [address] 10 mg TbDL 01-18 by mouth Luke s 11:55: 00:00 nightly. Medical 27 :00 Center insulin 2021- No 10U Inject [address] aspart 01-18 Units [facility]ukes U-100 11:55: 00:00 subcutaneo Medic al (NovoLOG) 27 :00 usly 3 Center 100 unit/mL (three) (3 mL) InPn times daily before meals. calcitrioL 2021- No .25ug QD Take 0.[address] (ROCALTROL) 01-18 mcg by Lukes 0.25 MCG 11:55: 00:00 mouth Medical capsule 27 :00 daily. Center hydrALAZINE 2021- No 25mg Q.[id number] Take [address] (APRESOLINE 01-18 [id number] by mouth 3 [facility] ) 25 MG [...] [address] (CARDURA) 4 8-30 08-30 by mouth Christopher es MG tablet 11:55: 00:00 nightly. Med ical 27 :00 Center isosorbide 2021- No 60mg QD Take [address] mononitrate 01-18-30 by mouth Christopher es (IMDUR) 60 11:55: 00:00 daily. Medi keira MG 24 hr 27 :00 Center tablet insulin 2021- No 40U QD Inject [address] glargine 01-18-30 Units Lukes (LANTUS, 11:55: 00:00 subcutaneo Me dical SEMGLEE) 27 :00 usly Center 100 unit/mL nightly injection Use as directed . furosemide 2021- No 80mg Q.5D Take [address] (LASIX) 80 01-18-30 by mouth 2 [facility] kes MG tablet 11:55: 00:00 (two) Medica l 27 :00 times Center daily. escitalopra 2021- No 10mg QD Take [address] m oxalate 01-18- by mouth [facility]ukes (LEXAPRO) 11:55: 00:00 nightly. [...] Take [address] -acetaminop 01-18 09-29 tablet by Camille kes hen (NORCO 00:00: 23:59 mouth Medic al 5-325) [...] Take [address] -acetaminop 8-30 08-30 tablet by Camille pablo (NORCO 00:00: 00:00 mouth Medic al 5-325) 00 :00 every 6 Center 5-325 mg (six) per tablet hours as needed for Pain (Right knee septic joint). Max Daily Amount: 4 tablets HYDROcodone 2021-2021- No 1{tbl} Take [address] -acetaminop 8-30 08-30 tablet by Camille pablo (NORCO 00:00: 00:00 mouth Medic al 5-325) 00 :00 every 6 Center 5-325 mg (six) per tablet hours as needed for Pain (Right knee septic joint). Max Daily Amount: 4 tablets HYDROcodone 2021-2021- No 1{tbl} Take [address] -acetaminop 8-30 08-30 tablet by Camille pbalo (NORCO 00:00: 00:00 mouth Medic al 5-325) 00 :00 every 6 Center 5-325 mg (six) per tablet hours as needed for Pain (Right knee septic joint). Max Daily Amount: 4 tablets vancomycin 2021-2021- No 125mg Q2D Take 1 Met hodi (Vancocin) 10-11-[address] 125 MG 00:00: 04:59 (125 mg Hospita capsule 00 :00 total) by l mouth every other day for 7 doses. vancomycin 2021-2021- No 125mg QD Take 1 Met hodi (Vancocin) 10-04 05-[address] 125 MG 00:00: 04:59 (125 mg Hospita capsule 00 :00 total) by l mouth daily for 7 doses. vancomycin 2021-2021- No 125mg Q.5D Take 1 Met hodi (Vancocin) 09-26-[address] 125 MG 00:00: 04:59 (125 mg Hospita capsule 00 :00 total) by l mouth 2 (two) times a day for 14 doses. vancomycin 2021-0 2021- No 125mg Q.[id number] Take 1 Methodi (Vancocin) 09-24 05-[id number] 125 MG 00:00: 04:59 3D (125 mg Hospita capsule 00 :00 total) by l mouth 3 (three) times a day for 8 doses. apixaban 0 Yes 2.5mg Q.5D Take 2.5 Meth ramiro (ELIQUIS) 4-[address] 2.5 mg 18:55: mouth 2 Hospita tablet 03 (two) l times a day. metoprolol 2021- No 100mg Q.5D Take 100 M ethodi tartrate 4-29 04-[address] (LOPRESSOR) 18:55: 00:00 mouth 2 Ho spita 100 mg 03 :00 (two) l tablet times a day. furosemide 2021- No 40mg Q.5D Take 40 mg [facility]i (LASIX) 40 4-29 04-[address] mg tablet 18:55: 00:00 (two) Hospit a 03 :00 times a l day. BUMETanide 2021- No 1mg QD Take 1 mg M ethodi (BUMEX) 1 4-28 04-[address] MG tablet 18:55: 00:00 daily. Hospi ta 55 :00 l pramipexole 0 Yes 1mg QD Take 1 mg M ethodi (MIRAPEX) 1 4-[address] MG tablet 18:55: nightly. [facility] 51 l melatonin 0 Yes 10mg QD Take 10 mg Me thodi 10 mg 4-[address] capsule 18:55: daily. Hospita 51 l traZODone 0 Yes 100mg QD Take 100 Met hodi (DESYREL) 4-[address] 100 MG 18:55: mouth Hospita tablet 51 nightly. l isosorbide 0 Yes 60mg QD Take 60 mg M ethodi mononitrate 4-[address] (IMDUR) 60 18:55: daily. Hospi ta MG 24 hr 51 l tablet escitalopra 0 Yes 10mg QD Take 10 mg Methodi m (LEXAPRO) 4-[address] 10 MG 18:55: daily. Hospita tablet 51 l calcitrioL 2021-0 Yes .25ug QD Take 0.25 M ethodi (ROCALTROL) 4-[address] 0.25 MCG 18:55: mouth Hospita capsule 51 daily. l hydrALAZINE 2021- No 25mg Q.[id number] Take 1 [facility] (APRESOLINE 09-16- [id number] tablet (25 st ) 25 MG 00:00: 04:59 3D mg total) [facility] tablet 00 :00 by mouth l every 8 (eight) hours for 30 days. aspirin 81 2021- No 81mg QD Chew 1 Meth ramiro mg chewable 09-16 tablet (81 s t tablet 00:00: 04:59 mg total) Hospi ta 00 :00 daily for l 30 days. carvediloL 2021- No 25mg Q.5D Take 1 Meth ramiro (COREG) 25 09-16 tablet (25 st MG tablet 00:00: 04:59 mg total) Ho spita 00 :00 by mouth 2 l (two) times a day for 30 days. pantoprazol 2021- No 40mg QD Take 1 Met hodi e 09-16 tablet (40 st (Protonix) 00:00: 04:59 mg [...] .1mg QD Take 0.1 Met hodi (CATAPRES) 08-14 03-[address] 0.1 MG 19:46: 00:00 mouth Hospita tablet 04 :00 nightly. l insulin 2021- No Inject Methodi LISPRO 08-14 03-[address] PROTAMIN-LI 19:46: 00:00 skin. Hosp fracnois SPRO 04 :00 l (HUMALOG 50-50) 100 unit/mL (50-50) suspension subcutaneou s vial insulin 2021- No 100U QD Inject 100 Met hodi GLARGINE - 03-[address] (LANTUS) 19:46: 00:00 under the Hos keo 100 unit/mL 04 :00 skin l injection daily. (vial) digOXIN 2021- No 125ug QD Take 125 Meth ramiro (LANOXIN) - 03-[address] 125 mcg 19:46: 00:00 mouth Hospita (0.125 mg) 04 :00 daily. l tablet rOPINIRole 2021- No 1mg QD Take 1 mg M ethodi (REQUIP) 1 - 03-[address] MG tablet 19:46: 00:00 nightly. Hos keo 04 :00 l aspirin 81 2021- No 81mg QD Chew 1 Meth ramiro mg chewable 08-14 04-28 tablet (81 s t tablet 00:00: 00:00 mg total) Hospi ta 00 :00 daily for l 30 days. metoprolol 2021- No 100mg Q.5D Take 100 M ethodi tartrate 3-25 03-[address] (LOPRESSOR) 19:46: 00:00 mouth 2 Ho spita 100 mg 31 :00 (two) l tablet times a day. hydrALAZINE 2021- No 100mg Q.[id number] Take 100 Methodi (APRESOLINE 3-25 03-[id number] ) 100 MG 19:46: 00:00 3D mouth 3 Hospi ta tablet 31 :00 (three) l times a day. apixaban 2021- No 2.5mg Q.5D Take 2.5 Met hodi (ELIQUIS) 3-25 03-[address] 2.5 mg 19:46: 00:00 mouth 2 Hospita tablet 31 :00 (two) l times a day. potassium 2021- No 10meq Q.5D Take 10 Met hodi chloride 3-25 03-[address] (K-DUR) 10 19:46: 00:00 mouth 2 Hos keo MEQ CR 31 :00 (two) l tablet times a day. cholecalcif 2021- No 5000U QD Take 5,000 Methodi sophia, 3-25 03-[address] vitamin D3, 19:46: 00:00 mouth [facility] 1,000 unit 31 :00 daily. l tablet doxazosin 2021- No 1{tbl} Q.5D Take 1 Met hodi (CARDURA) 4 08-13-[address] MG tablet 19:46: 00:00 mouth 2 [facility]osp [facility] 31 :00 (two) l times a day. insulin 2021-2021- No 12U QD Inject Methodi GLARGINE 08-[address] (LANTUS) 00:00: 00:00 (12 Units Hos keo 100 unit/mL 00 :00 total) l injection under the (vial) skin nightly for 30 days. carvediloL 2021- No 25mg Q.5D Take 1 Meth ramiro (COREG) 25 08-13 tablet (25 st MG tablet 00:00: 00:00 mg total) Ho spita 00 :00 by mouth 2 l (two) times a day for 30 days. hydrALAZINE 2021-2021- No 50mg Q.[id number] Take 1 Methodi (APRESOLINE 08-13 [id number] tablet (50 st ) 50 MG 00:00: 00:00 3D mg total) [facility]osp [facility] tablet 00 :00 by mouth l every 8 (eight) hours for 30 days. insulin 2021- No 20U QD Inject 0.2 Met hodi GLARGINE 15 02-15 mL (20 st (LANTUS) 00:00: 05:59 Units Hospita 100 unit/mL 00 :00 total) l injection under the (vial) skin daily with breakfast for 30 days. SITagliptin 2021-2021- No 25mg QD Take 1 Met hodi (JANUVIA) -15 -15 tablet (25 st 25 MG 00:00: 05:59 mg total) Hospit a tablet 00 :00 by mouth l daily with breakfast for 30 days. hydrALAZINE 2021-2021- No 100mg Q.5D Take 1 Me thodi (APRESOLINE -14 -[address] ) 100 MG 00:00: 05:59 (100 mg Hospi ta tablet 00 :00 total) by l mouth 2 (two) times a day with meals for 30 days. isosorbide 2021-0 2021- No 60mg QD Take 1 Meth ramiro mononitrate 1-07-05 tablet (60 s t (IMDUR) 60 00:00: [...] l mouth nightly for 30 days. calcitrioL 2021- No .25ug QD Take 1 Met hodi (ROCALTROL) 06-[address] 0.25 MCG 00:00: 05:59 (0.25 mcg Hos keo capsule 00 :00 total) by l mouth every morning for 30 days. levalbutero 2021- No [id number] 1.25mg Q8H Take 3 mL Methodi l (XOPENEX) 06-04 (1.[address] 1.25 mg/3 00:00: 05:59 total) by Ho spita mL 00 :00 nebulizati l nebulizer on every 8 solution (eight) hours as needed for wheezing for up to 30 days. escitalopra 2021- No 10mg QD Take 1 Met hodi m (LEXAPRO) 06-04 tablet (10 s t 10 MG 00:00: 05:59 mg total) Hospit a tablet 00 :00 by mouth l every evening for 30 days. insulin 2021- No 5U Q.[id number] Inject M ethodi LISPRO 06-04 [id number] 0.05 mL (5 st (ADMELOG) 00:00: 05:59 3D Units Hospit a 100 unit/mL 00 :00 total) l subcutaneou under the s vial skin 3 (three) times a day with meals for 30 days. nystatin Apply Methodi (MYCOSTATIN 1-14 02-[address] ) 100,000 00:00: 05:59 as needed Ho spita unit/gram 00 :00 (rash) for l powder up to 30 days. budesonide 2020-05 Yes 3mg Q.[id number] Take 3 mg Methodi EC 2-12 [id number] by mouth 3 st (ENTOCORT 00:00: 3D (three) Hospi ta EC) 3 mg 24 00 times a l hr capsule day. triamcinolo 2021- No 1{appli Q.5D Apply 1 Methodi ne 7-19 03-25 cation} applicatio st (KENALOG) 00:00: 00:00 n Hospita 0.1 % cream 00 :00 topically l 2 (two) times a day. Under breast and between legs allopurinol Yes [id number] 150mg Take 150 Univers (ZYLOPRIM) 1-04 mg by ity of 100 mg 15:21: mouth [place] tablet 32 daily. Medical Branch CALCIUM Yes .25mg Take 0.25 Univ ers CARBONATE/V 1-04 mg by ity of ITAMIN D3 15:21: mouth [place] (VITAMIN 32 daily. Medical D-3 ORAL) Branch allopurinol Yes [id number] 150mg Take 150 Univers (ZYLOPRIM) 1-04 mg by ity of 100 mg 15:21: mouth [place] tablet 32 daily. Medical Branch CALCIUM Yes .25mg Take 0.25 Univ ers CARBONATE/V 1-04 mg by ity of ITAMIN D3 15:21: mouth [place] (VITAMIN 32 daily. Medical D-3 ORAL) Branch allopurinol Yes [id number] 150mg Take 150 Univers (ZYLOPRIM) 1-04 mg by ity of 100 mg 15:21: mouth [place] tablet 32 daily. Medical Branch CALCIUM Yes .25mg Take 0.25 Univ ers CARBONATE/V 1-04 mg by ity of ITAMIN D3 15:21: mouth [place] (VITAMIN 32 daily. Medical D-3 ORAL) Branch allopurinol Yes [id number] 150mg Take 150 Univers (ZYLOPRIM) 1-04 mg by ity of 100 mg 15:21: mouth [place] tablet 32 daily. Medical Branch CALCIUM Yes .25mg Take 0.25 Univ ers CARBONATE/V 1-04 mg by ity of ITAMIN D3 15:21: mouth [place] (VITAMIN 32 daily. Medical D-3 ORAL) Branch allopurinol Yes [id number] 150mg Take 150 Univers (ZYLOPRIM) 1-04 mg by ity of 100 mg 15:21: mouth [place] tablet 32 daily. Medical Branch CALCIUM Yes .25mg Take 0.25 Univ ers CARBONATE/V 1-04 mg by ity of ITAMIN D3 15:21: mouth [place] (VITAMIN 32 daily. Medical D-3 ORAL) Branch allopurinol Yes [id number] 150mg Take 150 Univers (ZYLOPRIM) 1-04 mg by ity of 100 mg 15:21: mouth [place] tablet 32 daily. Medical Branch allopurinol Yes [id number] 150mg Take 150 Univers (ZYLOPRIM) 1-04 mg by ity of 100 mg 15:21: mouth [place] tablet 32 daily. Medical Branch CALCIUM Yes .25mg Take 0.25 Univ ers CARBONATE/V 1-04 mg by ity of ITAMIN D3 15:21: mouth [place] (VITAMIN 32 daily. Medical D-3 ORAL) Branch allopurinol Yes [id number] 150mg Take 150 Univers (ZYLOPRIM) 1-04 mg [...] daily. Medical D-3 ORAL) Branch allopurinol Yes [id number] 150mg Take 150 Univers (ZYLOPRIM) 1-04 mg by ity of 100 mg 15:21: mouth [place] tablet 32 daily. Medical Branch CALCIUM Yes .25mg Take 0.25 Univ ers CARBONATE/V 1-04 mg by ity of ITAMIN D3 15:21: mouth [place] (VITAMIN 32 daily. Medical D-3 ORAL) Branch allopurinol Yes [id number] 150mg Take 150 Univers (ZYLOPRIM) 1-04 mg by ity of 100 mg 15:21: mouth [place] tablet 32 daily. Medical Branch CALCIUM Yes .25mg Take 0.25 Univ ers CARBONATE/V 1-04 mg by ity of ITAMIN D3 15:21: mouth [place] (VITAMIN 32 daily. Medical D-3 ORAL) Branch allopurinol Yes [id number] 150mg Take 150 Univers (ZYLOPRIM) 1-04 mg by ity of 100 mg 15:21: mouth [place] tablet 32 daily. [facility] CALCIUM Yes .25mg Take 0.25 Univ ers CARBONATE/V 1-04 mg by ity of ITAMIN D3 15:21: mouth [place] (VITAMIN 32 daily. Medical D-3 ORAL) Branch furosemide Yes [id number] 40mg Take 40 mg Univers (LASIX) 20 1-04 by mouth ity o f mg tablet 15:19: daily. [address] furosemide Yes [id number] 40mg Take 40 mg Univers (LASIX) 20 1-04 by mouth ity o f mg tablet 15:19: daily. [address] furosemide Yes [id number] 40mg Take 40 mg Univers (LASIX) 20 1-04 by mouth ity o f mg tablet 15:19: daily. [address] furosemide Yes [id number] 40mg Take 40 mg Univers (LASIX) 20 1-04 by mouth ity o f mg tablet 15:19: daily. [address] furosemide Yes [id number] 40mg Take 40 mg Univers (LASIX) 20 1-04 by mouth ity o f mg tablet 15:19: daily. [address] furosemide Yes [id number] 40mg Take 40 mg [facility] (LASIX) 20 1-04 by mouth ity o f mg tablet 15:19: daily. [address] furosemide Yes [id number] 40mg Take 40 mg Univers (LASIX) 20 1-04 by mouth ity o f mg tablet 15:19: daily. [address] furosemide 2016- Yes [id number] 40mg Take 40 mg [facility] (LASIX) 20 1-04 by mouth ity o f mg tablet 15:19: daily. [address] furosemide 2016-0 Yes [id number] 40mg Take 40 mg Univers (LASIX) 20 1-04 by mouth ity o f mg tablet 15:19: daily. [address] furosemide 2016- Yes [id number] 40mg Take 40 mg [facility] (LASIX) 20 1-04 by mouth ity o f mg tablet 15:19: daily. [address] furosemide Yes [id number] 40mg Take 40 mg [facility] (LASIX) 20 1-04 by mouth ity o f mg tablet 15:19: daily. [address] Golimumab Yes [id number] inject U nivers (SIMPONI) 1-04 under the ity o f 50 mg/0.5 15:18: skin. [place] mL 20 Infusion Medical injection every 8 Branch weeks for rheumatoid arthritis. Golimumab Yes [id number] inject U nivers (SIMPONI) 1-04 under the ity o f 50 mg/0.5 15:18: skin. [place] mL 20 Infusion Medical injection every 8 Branch weeks for rheumatoid arthritis. Golimumab 2016- Yes [id number] inject U nivers (SIMPONI) 1-04 under the ity o f 50 mg/0.5 15:18: skin. [place] mL 20 Infusion Medical injection every 8 Branch weeks for rheumatoid arthritis. Golimumab Yes [id number] inject U nivers (SIMPONI) 1-04 under the ity o f 50 mg/0.5 15:18: skin. [place] mL 20 Infusion Medical injection every 8 Branch weeks for rheumatoid arthritis. Golimumab 2017- Yes [id number] inject U nivers (SIMPONI) 1-04 under the ity o f 50 mg/0.5 15:18: skin. [place] mL 20 Infusion Medical injection every 8 Branch weeks for rheumatoid arthritis. Golimumab 2016- Yes [id number] inject U nivers (SIMPONI) 1-04 under the ity o f 50 mg/0.5 15:18: skin. [place] mL 20 Infusion Medical injection every 8 Branch weeks for rheumatoid arthritis. Golimumab 2017 Yes [id number] inject U nivers (SIMPONI) 1-04 under the ity o f 50 mg/0.5 15:18: skin. [place] mL 20 Infusion Medical injection every 8 Branch weeks for rheumatoid arthritis. Golimumab Yes [id number] inject U nivers (SIMPONI) 1-04 under the ity o f 50 mg/0.5 15:18: skin. [place] mL 20 Infusion Medical injection every 8 Branch weeks for rheumatoid arthritis. Golimumab Yes [id number] inject U nivers (SIMPONI) 1-04 under the ity o f 50 mg/0.5 15:18: skin. [place] mL 20 Infusion Medical injection every 8 Branch weeks for rheumatoid arthritis. Golimumab Yes [id number] inject U nivers (SIMPONI) 1-04 under the ity o f 50 mg/0.5 15:18: skin. [place] mL 20 Infusion Medical injection every 8 Branch weeks for rheumatoid arthritis. Golimumab Yes [id number] inject U nivers (SIMPONI) 1-04 under the ity o f 50 mg/0.5 15:18: skin. [place] mL 20 Infusion Medical injection every 8 Branch weeks for rheumatoid arthritis. carvedilol Yes 12.5mg Take 12.5 Univers (COREG) 1-04 mg by ity of 12.5 mg 14:33: mouth 2 [place] tablet 03 (two) Medical times Branch daily with meals. linagliptin Yes [id number] Take by Univers (TRADJENTA) 1-04 mouth. ity of 5 mg tablet 14:33: [place] 03 Medical Branch apixaban Yes 5mg Take 5 [...] 2 [place] tablet 03 (two) Medical times [place] daily with meals. linagliptin Yes [id number] Take by Univers (TRADJENTA) 1-04 mouth. ity [...] 2 [place] tablet 03 (two) Medical times [place] daily with meals. linagliptin 0 Yes [id number] Take by Univers (TRADJENTA) 1-04 mouth. ity of 5 mg tablet 14:33: [place] [facility] linagliptin 0 Yes [id number] Take by Univers (TRADJENTA) 1-04 mouth. ity of 5 mg tablet 14:33: [place] [facility] apixaban Yes 5mg Take 5 [...] Branch daily with meals. linagliptin 2017-0 Yes [id number] Take by Univers (TRADJENTA) 1-04 mouth. ity [...] Branch daily with meals. linagliptin 2017-0 Yes [id number] Take by Univers (TRADJENTA) 1-04 mouth. ity of 5 mg tablet 14:33: [place] 03 Medical Branch apixaban 2017-0 Yes 5mg Take 5 mg Univ ers (ELIQUIS) 1-04 by mouth 2 ity of 2.5 mg 14:33: (two) [place] tablet 03 times Medical daily. Branch apixaban 2017-0 Yes 5mg Take 5 [...] (two) Medical times Branch daily with meals. hydralAZINE [id number] Yes 50mg Take 50 mg [...] 2 [place] tablet 03 (two) Medical times [place] daily with meals. linagliptin 2017-0 Yes [id number] Take by Univers (TRADJENTA) 1-04 mouth. ity of 5 mg tablet 14:33: [place] [facility] apixaban 2016-0 Yes 5mg Take 5 mg Univ ers (ELIQUIS) 1-04 by mouth 2 ity of 2.5 mg 14:33: (two) [place] tablet 03 times Medical daily. Branch hydralAZINE 0 Yes 50mg Take 50 mg [facility] (APRESOLINE 1-04 by mouth ity of ) 50 mg 14:33: every 6 [place] tablet 03 (six) Medical hours. Branch isosorbide 0 Yes 60mg Take 60 mg U nivers mononitrate 1-04 by mouth. ity of (IMDUR) 60 14:33: [place] mg 24 hr 03 Medical tablet Branch carvedilol 2017-0 Yes 12.5mg Take 12.5 [facility] (COREG) 1-04 mg by ity of 12.5 mg 14:33: mouth 2 [place] tablet 03 (two) Medical times [place] daily with meals. linagliptin 2017-0 Yes [id number] Take by Univers (TRADJENTA) 1-04 mouth. ity of 5 mg tablet 14:33: [place] [facility] apixaban 2016-0 Yes 5mg Take [...] 2 [place] tablet 03 (two) Medical times [place] daily with meals. linagliptin 2017-0 Yes [id number] Take by Univers (TRADJENTA) 1-04 mouth. ity [...] 2 [place] tablet 03 (two) Medical times [place] daily with meals. linagliptin 2017-0 Yes [id number] Take by [facility] (TRADJENTA) 1-04 mouth. ity [...] times Branch daily with meals. linagliptin Yes [id number] Take by [facility] (TRADJENTA) 1-04 mouth. ity of 5 mg tablet 14:33: [place] 03 Medical Branch apixaban Yes 5mg Take 5 [...] hr 03 Medical tablet Branch pramipexole Yes [id number] 2mg Take 2 [facility] (MIRAPEX) 1 1-04 tablets by [place] y [place] mg tablet 00:00: [place] 00 bed[place]. [facility] pramipexole Yes [id number] 2mg Take 2 [facility] (MIRAPEX) 1 1-04 tablets by it y of mg tablet 00:00: [place] 00 bed[place]. [facility] pramipexole Yes [id number] 2mg Take 2 [facility] (MIRAPEX) 1 1-04 tablets by [place] y of mg tablet 00:00: [place] 00 bed[place]. [facility] pramipexole Yes [id number] 2mg Take 2 [facility] (MIRAPEX) 1 1-04 tablets by [place] y of mg tablet 00:00: [place] 00 bed[place]. [facility] pramipexole Yes [id number] 2mg Take 2 [facility] (MIRAPEX) 1 1-04 tablets by it y of mg tablet 00:00: [place] 00 bedtime. [facility] pramipexole 0 Yes [id number] 2mg Take 2 [facility] (MIRAPEX) 1 1-04 tablets by [place] y of mg tablet 00:00: [place] 00 bedtime. [facility] pramipexole Yes [id number] 2mg Take 2 [facility] (MIRAPEX) 1 1-04 tablets by it y of mg tablet 00:00: [place] 00 bed[place]. [facility] pramipexole Yes [id number] 2mg Take 2 [facility] (MIRAPEX) 1 1-04 tablets by it y of mg tablet 00:00: [place] 00 bedtime. [facility] pramipexole Yes [id number] 2mg Take 2 [facility] (MIRAPEX) 1 1-04 tablets by [place] y of mg tablet 00:00: [place] 00 bedtime. [facility] pramipexole Yes [id number] 2mg Take 2 [facility] (MIRAPEX) 1 1-04 tablets by it y of mg tablet 00:00: [place] 00 bedtime. [facility] pramipexole Yes [id number] 2mg Take 2 [facility] (MIRAPEX) 1 1-04 [...] Medical times Branch daily. glipiZIDE 2015-05 Yes [id number] 10mg Take 1 Un kevan XL 1-16 tablet by ity of (GLUCOTROL 00:00: [place] XL[place] 10 mg 00 (two) Medical 24 hr times Branch tablet daily. glipiZIDE 2015-05 Yes [id number] 10mg Take 1 Un ke[place] XL 1-16 tablet by ity of (GLUCOTROL 00:00: [place] XL) 10 mg 00 (two) Medical 24 hr times Branch tablet daily. glipiZIDE 2015-05 Yes [id number] 10mg Take 1 Un ke[place] XL 1-16 tablet by ity of (GLUCOTROL 00:00: [place] XL[place] 10 mg 00 (two) Medical 24 hr times Branch tablet daily. glipiZIDE 2015-05 Yes [id number] 10mg Take 1 Un ke[place] XL 1-16 tablet by ity of (GLUCOTROL 00:00: [place] XL[place] 10 mg 00 (two) Medical 24 hr times Branch tablet daily. glipiZIDE 2015-05 Yes [id number] 10mg Take 1 Un kevan XL 1-16 tablet by ity of (GLUCOTROL 00:00: [place] XL) 10 mg 00 (two) Medical 24 hr times Branch tablet daily. glipiZIDE 2015-05 Yes [id number] 10mg Take 1 [place] XL 1-16 tablet by ity of (GLUCOTROL 00:00: mouth 2 [place] XL) 10 mg 00 (two) Medical 24 hr times Branch tablet daily. glipiZIDE 2015-05 Yes [id number] 10mg Take 1 Un ke[place] XL 1-16 tablet by ity of (GLUCOTROL 00:00: mouth 2 [place] XL) 10 mg 00 (two) Medical 24 hr times Branch tablet daily. glipiZIDE 2015-05 Yes [id number] 10mg Take 1 [facility] [place] XL 1-16 tablet by ity of (GLUCOTROL 00:00: mouth 2 [place] XL) 10 mg 00 (two) Medical 24 hr times Branch tablet daily. glipiZIDE 2015-05 Yes [id number] 10mg Take 1 Un [place] XL 1-16 tablet by ity of (GLUCOTROL 00:00: mouth 2 [place] XL) 10 mg 00 (two) Medical 24 hr times Branch tablet daily. glipiZIDE 2015-05 Yes [id number] 10mg Take 1 Un [place] XL 1-16 tablet by ity of (GLUCOTROL 00:00: mouth 2 [place] XL) 10 mg 00 (two) Medical 24 hr times Branch tablet daily. glipiZIDE 2015-05 Yes [id number] 10mg Take 1 Un [place] XL 1-16 tablet by ity of (GLUCOTROL 00:00: mouth 2 [place] XL) 10 mg 00 (two) Medical 24 hr times Branch tablet daily. atorvastati 2015-05 Yes [id number] 10mg Take 1 Univers n (LIPITOR) 1-02 tablet by ity of 10 mg 00:00: mouth at [place] tablet 00 bedtime. Medical Branch atorvastati 2015-05 Yes [id number] 10mg Take 1 Univers n (LIPITOR) 1-02 tablet by ity of 10 mg 00:00: mouth at [place] tablet 00 bedtime. Medical Branch atorvastati 2015-05 Yes [id number] 10mg Take 1 Univers n (LIPITOR) 1-02 tablet by ity of 10 mg 00:00: mouth at [place] tablet 00 [facility]time. [facility] Yes [id number] 10mg Take 1 Univers n (LIPITOR) 1-02 tablet by ity of 10 mg 00:00: mouth at [place] tablet 00 bedtime. [facility] Yes [id number] 10mg Take 1 Univers n (LIPITOR) 1-02 tablet by ity of 10 mg 00:00: mouth at [place] tablet 00 bedtime. [facility]05 Yes [id number] 10mg Take 1 Univers n (LIPITOR) 1-02 tablet by ity of 10 mg 00:00: mouth at [place] tablet 00 bedtime. [facility]05 Yes [id number] 10mg Take 1 Univers n (LIPITOR) 1-02 tablet by ity of 10 mg 00:00: mouth at [place] tablet 00 bedtime. [facility] 2015-05 Yes [id number] 10mg Take 1 Univers n (LIPITOR) 1-02 tablet by ity of 10 mg 00:00: mouth at [place] tablet 00 bedtime. [facility]05 Yes [id number] 10mg Take 1 Univers n (LIPITOR) 1-02 tablet by ity of 10 mg 00:00: mouth at [place] tablet 00 bedtime. [facility]05 Yes [id number] 10mg Take 1 Univers n (LIPITOR) 1-02 tablet by ity of 10 mg 00:00: mouth at [place] tablet 00 bedtime. [facility]05 Yes [id number] 10mg Take 1 Univers n (LIPITOR) 1-02 tablet by ity of 10 mg 00:00: mouth at [place] tablet 00 bedtime. [facility] Branch Immunizations Ordered Immunization Filled Immunization Date Status Commen ts Source Name Name PFIZER COVID-19 MRNA 2021-06-10 Completed Meth odist VACCINATION 00:00:00 [facility] PFIZER COVID-19 MRNA 2020-07-09 Completed Meth odist VACCINATION 00:00:00 [facility] PFIZER COVID-19 MRNA 2020-06-18 Completed Meth odist VACCINATION 00:00:00 [facility] Pneumococcal 2020-04-29 Completed [facility] Polysaccharide 00:00:00 [facility] Zoster 2020-04-29 Completed [facility] 00:00:00 [facility] Pneumococcal 2019-05-13 Completed [facility] 2019-03[facility] 00:00:00 Hospital FLUZONE HIGH-DOSE PF 2017-03-09 Completed Meth odist 00:00:00 Hospital Influenza Trivalent 2016-05-21 Completed Metho dist 00:00:00 Hospital Influenza, 2016-02-03 Completed [facility] Unspecified 00:00:00 Hospital Pneumococcal 2016-02-03 Completed [facility] Conjugate 13-Valent 00:00:00 Hospi true Tdap 2016-02-03 Completed [facility] 00:00:00 [facility] Influenza Virus 2016-02-03 Completed Universit y of Vaccine 00:00:00 [facility] Pneumococcal 13 2016-02-03 Completed Universit y of Conjugate, PCV13 00:00:00 [facility] dical (Prevnar 13) Branch [facility] 2016-02-03 Completed University of 00:00:00 [facility] Influenza Virus 2016-02-03 Completed Universit y of Vaccine 00:00:00 [facility] Pneumococcal 13 2016-02-03 Completed Universit y of Conjugate, PCV13 00:00:00 [facility] dical (Prevnar 13) Branch [facility] 2016-02-03 Completed University of 00:00:00 [facility] Influenza Virus 2016-02-03 Completed Universit y of Vaccine 00:00:00 [facility] Pneumococcal 13 2016-02-03 Completed Universit y of Conjugate, PCV13 00:00:00 [facility] dical (Prevnar 13) Branch [facility] 2016-02-03 Completed University of 00:00:00 [facility] Influenza Virus 2016-02-03 Completed Universit y of Vaccine 00:00:00 [facility] Pneumococcal 13 2016-02-03 Completed Universit y of Conjugate, PCV13 00:00:00 [facility] dical (Prevnar 13) Branch [facility] 2016-02-03 Completed University of 00:00:00 [facility] Influenza Virus 2016-02-03 Completed Universit y of Vaccine 00:00:00 [facility] Pneumococcal 13 2016-02-03 Completed Universit y of Conjugate, PCV13 00:00:00 [facility] dical (Prevnar 13) Branch [facility] 2016-02-03 Completed University of 00:00:00 [facility] Influenza Virus 2016-02-03 Completed Universit y of Vaccine 00:00:00 [place] [facility] Pneumococcal 13 2016-02-03 Completed Universit y of Conjugate, PCV13 00:00:00 [facility] dical (Prevnar 13) Branch [facility] 2016-02-03 Completed University of 00:00:00 [facility] Influenza Virus 2016-02-03 Completed Universit y of Vaccine 00:00:00 [facility] Pneumococcal 13 2016-02-03 Completed Universit y of Conjugate, PCV13 00:00:00 [facility] dical (Prevnar 13) Branch [facility] 2016-02-03 Completed University of 00:00:00 [facility] Influenza Virus 2016-02-03 Completed Universit y of Vaccine 00:00:00 [facility] Pneumococcal 13 2016-02-03 Completed Universit y of Conjugate, PCV13 00:00:00 [facility] dical (Prevnar 13) Branch [facility] 2016-02-03 Completed University of 00:00:00 [facility] Influenza Virus 2016-02-03 Completed Universit y of Vaccine 00:00:00 [facility] Pneumococcal 13 2016-02-03 Completed Universit y of Conjugate, PCV13 00:00:00 [facility] dical (Prevnar 13) Branch [facility] 2016-02-03 Completed University of 00:00:00 [facility] Influenza Virus 2016-02-03 Completed Universit y of Vaccine 00:00:00 [facility] Pneumococcal 13 2016-02-03 Completed Universit y of Conjugate, PCV13 00:00:00 [facility] dical (Prevnar 13) Branch [facility] 2016-02-03 Completed University of 00:00:00 [facility] Influenza Virus 2016-02-03 Completed Universit y of Vaccine 00:00:00 [facility] Pneumococcal 13 2016-02-03 Completed Universit y of Conjugate, PCV13 00:00:00 [facility] dical (Prevnar 13) Branch [facility] 2016-02-03 Completed University of 00:00:00 [facility] Influenza, 2015-01-05 Completed [facility] Unspecified 00:00:00 Hospital Pneumococcal 2015-01-05 Completed [facility] Conjugate 13-Valent 00:00:00 Hospi true Td 2015-01-05 Completed [facility] 00:00:00 [facility] Influenza Virus 2015-01-05 Completed Universit y of Vaccine 00:00:00 [facility] Pneumococcal 13 2015-01-05 Completed Universit y of Conjugate, PCV13 00:00:00 [facility] dical (Prevnar 13) Branch Tetanus/Diptheria 2015-01-05 Completed Univers ity of 00:00:00 [facility] Influenza Virus 2015-01-05 Completed Universit y of Vaccine 00:00:00 [facility] Pneumococcal 13 2015-01-05 Completed Universit y of Conjugate, PCV13 00:00:00 [facility] dical (Prevnar 13) Branch Tetanus/Diptheria 2015-01-05 Completed Univers ity of 00:00:00 [facility] Influenza Virus 2015-01-05 Completed Universit y of Vaccine 00:00:00 [facility] Pneumococcal 13 2015-01-05 Completed Universit y of Conjugate, PCV13 00:00:00 [facility] dical (Prevnar 13) Branch Tetanus/Diptheria 2015-01-05 Completed Univers ity of 00:00:00 [facility] Influenza Virus 2015-01-05 Completed Universit y of Vaccine 00:00:00 [facility] Pneumococcal 13 2015-01-05 Completed Universit y of Conjugate, PCV13 00:00:00 [facility] dical (Prevnar 13) Branch Tetanus/Diptheria 2015-01-05 Completed Univers ity of 00:00:00 [facility] Influenza Virus 2015-01-05 Completed Universit y of Vaccine 00:00:00 [facility] Pneumococcal 13 2015-01-05 Completed Universit y of Conjugate, PCV13 00:00:00 [facility] dical (Prevnar 13) Branch Tetanus/Diptheria 2015-01-05 Completed Univers ity of 00:00:00 [facility] Influenza Virus 2015-01-05 Completed Universit y of Vaccine 00:00:00 [facility] Pneumococcal 13 2015-01-05 Completed Universit y of Conjugate, PCV13 00:00:00 [facility] dical (Prevnar 13) Branch Tetanus/Diptheria 2015-01-05 Completed Univers ity of 00:00:00 [facility] Influenza Virus 2015-01-05 Completed Universit y of Vaccine 00:00:00 [facility] Pneumococcal 13 2015-01-05 Completed Universit y of Conjugate, PCV13 00:00:00 [facility] dical (Prevnar 13) Branch Tetanus/Diptheria 2015-01-05 Completed Univers ity of 00:00:00 [facility] Influenza Virus 2015-01-05 Completed Universit y of Vaccine 00:00:00 [place] [facility] Pneumococcal 13 2015-01-05 Completed Universit y of Conjugate, PCV13 00:00:00 [facility] dical (Prevnar 13) Branch Tetanus/Diptheria 2015-01-05 Completed Univers ity of 00:00:00 [facility] Influenza Virus 2015-01-05 Completed Universit y of Vaccine 00:00:00 [facility] Pneumococcal 13 2015-01-05 Completed Universit y of Conjugate, PCV13 00:00:00 [facility] dical (Prevnar 13) Branch Tetanus/Diptheria 2015-01-05 Completed Univers ity of 00:00:00 [facility] Influenza Virus 2015-01-05 Completed Universit y of Vaccine 00:00:00 [facility] Pneumococcal 13 2015-01-05 Completed Universit y of Conjugate, PCV13 00:00:00 [facility] dical (Prevnar 13) Branch Tetanus/Diptheria 2015-01-05 Completed Univers ity of 00:00:00 [facility] Influenza Virus 2015-01-05 Completed Universit y of Vaccine 00:00:00 [facility] Pneumococcal 13 2015-01-05 Completed Universit y of Conjugate, PCV13 00:00:00 [facility] dical (Prevnar 13) Branch Tetanus/Diptheria 2015-01-05 Completed Univers ity of 00:00:00 [facility] Pneumococcal 2013-05-21 Completed [facility] Conjugate 00:00:00 Hospital Tdap 2013-05-21 Completed [facility] 00:00:00 Hospital H1N1 All Forms 2009-04-20 Completed [facility] 00:00:00 Hospital Vital Signs Vital Name Observation Time Observation Value Comments Source HEIGHT 2022-01-14 10:00:00 162.6 cm WEIGHT 2022-01-14 10:00:00 68.04 kg HEIGHT 2022-01-14 10:00:00 162.6 cm WEIGHT 2022-01-14 10:00:00 68.04 kg HEIGHT 2022-01-14 10:00:00 162.6 cm WEIGHT 2022-01-14 10:00:00 68.04 kg Systolic blood 2022-01-18 12:00:00 117 mm[Hg] [facility] Diastolic blood 2022-01-18 12:00:00 51 mm[Hg] [facility] Heart rate 2022-01-18 12:00:00 80 /min [facility] Body temperature 2022-01-18 12:00:00 36.78 [facility] Respiratory rate 2022-01-18 12:00:00 18 /min [facility] Oxygen saturation in 2022-01-18 12:00:00 100 /min [facility] Arterial blood by Medical Ce nter Pulse oximetry Body height 2022-01-14 10:00:00 162.6 cm [facility] Body weight 2022-01-14 10:00:00 68.04 kg [facility] BMI 2022-01-14 10:00:00 25.75 kg/m2 [facility] Systolic blood 2021-09-16 23:24:00 145 mm[Hg] [facility] pressure Diastolic blood 2021-09-16 23:24:00 78 mm[Hg] [facility] pressure Heart rate 2021-09-16 23:00:00 80 /min [facility] Respiratory rate 2021-09-16 23:00:00 19 /min [facility] [place] [facility] Body temperature 2021-09-16 19:25:00 36.28 [facility] [place] [facility] Oxygen saturation in 2021-09-16 15:57:32 98 /min [facility] Arterial blood by Pulse oximetry Body height 2021-09-07 12:58:00 162.6 cm [facility] Body weight 2021-09-07 12:58:00 67.3 kg [facility] BMI 2021-09-07 12:58:00 25.47 kg/m2 [facility] Procedures Procedure Date / Time Performing Source Performed Clinician EXTERNAL PROVIDER RECORDS 2022-07-05 Doctor Univer [facility]ity of 06:01:00 Unassigned, No [place] [facility] EXTERNAL PROVIDER RECORDS 2022-04-01 Doctor Univer sity of 06:01:00 Unassigned, No [facility] POCT-GLUCOSE METER 2022-01-18 [facility] 12:10:00 [facility] HEMODIALYSIS INPATIENT 2022-01-[address] [facility] [place] [facility] 07:52:23 [facility] BASIC METABOLIC PANEL 2022-01-[address] [facility] 06:[facility]00 [facility] POCT-GLUCOSE [...] [facility] 15:[facility] Center POCT-GLUCOSE METER 2022-01-16 [facility], Mauro [facility] 11:46:00 Medical Center POCT-GLUCOSE METER 2022-01-16 Reji, Mauro [facility] 07:47:00 Medical Center POCT-GLUCOSE METER 2022-01-15 [facility], Mauro [facility] 20:13:00 Medical Center POCT-GLUCOSE METER 2022-01-15 Reji, Mauor [facility] 17:54:00 [facility] Center POCT-GLUCOSE METER 2022-01-15 [facility], Mauro [facility] 12:31:00 [facility] Center HEMODIALYSIS INPATIENT 2022-01-15 Lexie, [facility] 10:06:42 [facility] POCT-GLUCOSE METER 2022-01-15 Reji, Mauro [facility] 07:32:00 [facility] Center BASIC METABOLIC PANEL 2022-01-15 [facility]ji[facility] 03:58:00 Medical Center POCT-GLUCOSE METER 2022-01-14 Reji, Mauro [facility] 20:42:00 Medical Center POCT-GLUCOSE METER 2022-01-14 [facility], Mauro [facility] 15:38:00 [facility] Center SARS-COV2/RT-PCR ([facility]) 2022-01-14 Reji, Jean-Pierre r [facility] 14:57:00 Medical Center XR CHEST 1 VIEW PORTABLE / BEDSIDE 2022-01-14 RejiJean-Pierre [facility] 14:38:00 [facility] POCT-GLUCOSE METER 2022-01-14 Reji, Mauro [facility] 12:02:00 [facility] IR CENTRAL VENOUS CATHETER 2022-01-14 [facility], Maurojuliocesar [facility] PLACEMENT (JUGULAR OR FEMORAL) 11:14:00 [facility] POCT-GLUCOSE METER 2022-01-14 Reji, Mauro [facility] 08:24:00 [facility] CBC (HEMOGRAM ONLY) 2022-01-14 [facility], Mauro [facility] 04:11:00 [facility] BASIC METABOLIC PANEL 2022-01-14 [facility] 04:11:00 [facility] POCT-GLUCOSE METER 2022-01-13 [facility], Mauro [facility] 19:39:00 [facility] POCT-GLUCOSE METER 2022-01-13 [facility], [facility]uro [facility] 16:37:00 [facility] POCT-GLUCOSE METER 2022-01-13 [facility]uro [facility] 13:51:00 [facility] BLOOD GAS, ARTERIAL 2022-01-13 [facility], [facility]uro [facility] 08:41:00 [facility] POCT-GLUCOSE METER 2022-01-13 [facility], [facility]uro [facility] 08:25:00 [facility] CT BRAIN WITHOUT IV CONTRAST 2022-01-13 Reji, Mauro [facility] 07:50:00 [facility] COMPREHENSIVE METABOLIC PANEL 2022-01-13 [facility] 07:29:00 [facility] TROPONIN I 2022-01-13 [facility], [facility]uro [facility] 07:29:00 [facility] TSH/FREE T4 IF INDICATED 2022-01-13 [facility], [facility] 07:29:00 [facility] CBC W/PLT COUNT & AUTO 2022-01-13 [facility] DIFFERENTIAL 07:29:00 [facility] CBC W/PLT COUNT & AUTO 2022-01-13 [facility], [facility] DIFFERENTIAL 07:29:00 [facility] POCT-GLUCOSE METER 2022-01-13 [facility], [facility]uro [facility] 07:04:00 [facility] POCT-GLUCOSE METER 2022-01-13 Reji, Mauro [facility] 06:21:00 [facility] POCT-GLUCOSE METER 2022-01-12 Reji, Mauro [facility] 20:53:00 [facility] POCT-GLUCOSE METER 2022-01-12 Reji, Mauro [facility] 19:20:00 [facility] POCT-GLUCOSE METER 2022-01-12 Reji, Mauro [facility] 18:50:00 [facility] POCT-GLUCOSE METER 2022-01-12 Reji, Mauro [facility] 17:58:00 [facility] IR TUNNELED CATHETER INSERTION 2022-01-12 Lexie, Ameliadora [facility] 16:30:00 [facility] POCT-GLUCOSE METER 2022-01-12 Reji, Mauro [facility] 12:08:00 [facility] POCT-GLUCOSE METER 2022-01-12 [facility], Annalee Montoya [facility] 08:49:00 [facility] CBC W/PLT COUNT & AUTO 2022-01-12 [facility], Annalee Montoya [facility] DIFFERENTIAL 05:39:00 [facility] BASIC METABOLIC PANEL 2022-01-12 [facility], Annalee Montoya [facility] 05:39:00 [facility] MAGNESIUM 2022-01-12 [facility], Annalee Montoya [facility] 05:39:00 [facility] PHOSPHORUS 2022-01-12 [facility], Annalee Montoya [facility] 05:39:00 [facility] PROTHROMBIN TIME/INR 2022-01-12 [facility], [facility] 05:39:00 [facility] APTT 2022-01-12 [facility], Annalee Montoya [facility] 05:39:00 [facility] CBC W/PLT COUNT & AUTO 2022-01-12 [facility], Annalee Montoya [facility] DIFFERENTIAL 05:39:00 [facility] (MANUAL DIFFERENTIAL) 2022-01-12 [facility], Annalee Montoya [facility] 05:39:00 [facility] POCT-GLUCOSE METER 2022-01-11 [facility], Annalee Montoya [facility] 19:49:00 [facility] POCT-GLUCOSE METER 2022-01-11 [facility], Annalee Montoya [facility] 17:57:00 [facility] POCT-GLUCOSE METER 2022-01-11 Shieh, Annalee C [facility] 12:37:00 [facility] HEMODIALYSIS INPATIENT 2022-01-[address] [facility] 12:29:37 [facility] POCT-GLUCOSE METER 2022-01-11 Shieh, Annalee Montoya [facility] 07:49:00 [facility] POCT-GLUCOSE METER 2022-01-10 Shieh, Annalee C [facility] 21:16:00 [facility] POCT-GLUCOSE METER 2022-01-10 Shieh, Annalee C [facility] 15:24:00 [facility] IR TUNNEL CATHETER EXCHANGE 2022-01-[address] [facility] 11:23:00 [facility] POCT-GLUCOSE METER 2022-01-10 Shieh, Annalee Montoya [facility] 11:21:00 [facility] CBC W/PLT COUNT & AUTO 2022-01-10 Shieh, [facility]alee [facility] DIFFER[facility] 04:13:00 [facility] BASIC METABOLIC PANEL 2022-01-10 Shieh, Annalee C [facility] 04:13:00 [facility] MAGNESIUM 2022-01-10 Shieh, Annalee C [facility] 04:13:00 [facility] PHOSPHORUS 2022-01-10 Shieh, Annalee C [facility] 04:13:00 [facility] APTT 2022-01-[address] [facility] 04:13:00 [facility] CBC W/PLT COUNT & AUTO 2022-01-10 Shieh, [facility]alee [facility] DIFFERENTIAL 04:13:00 [facility] POCT-GLUCOSE METER 2022-01-09 Shieh, Annalee C [facility] 21:15:00 [facility] APTT 2022-01-09 Shieh, Annalee C [facility] 19:08:00 [facility] POCT-GLUCOSE METER 2022-01-09 Shieh, Annalee C [facility] 17:02:00 [facility] POCT-GLUCOSE METER 2022-01-09 Shieh, Annalee C [facility] 11:22:00 [facility] APTT 2022-01-09 Shieh, Annalee C [facility] 09:44:00 [facility] POCT-GLUCOSE METER 2022-01-09 Shieh, Annalee Montoya [facility] 07:19:00 [facility] POCT-GLUCOSE METER 2022-01-09 Shieh, Annalee Montoya [facility] 05:05:00 [facility] CBC W/PLT COUNT & AUTO 2022-01-09 Shieh, Annalee Montoya [facility] DIFFERENTIAL 04:57:00 [facility] BASIC METABOLIC PANEL 2022-01-09 Shieh, Annalee Montoya [facility] 04:57:00 [facility] MAGNESIUM 2022-01-09 Shieh, Annalee Jan [facility] 04:57:00 [facility] PHOSPHORUS 2022-01-09 Shieh, Annalee Jan [facility] 04:57:00 [facility] CBC W/PLT COUNT & AUTO 2022-01-09 Shieh, Annalee Montoya [facility] DIFFERENTIAL 04:57:00 [facility] APTT 2022-01-09 Shieh, Annalee Montoya [facility] 00:34:00 [facility] POCT-GLUCOSE METER 2022-01-08 Shieh, Annalee Montoya [facility] 16:49:00 [facility] APTT 2022-01-08 Shieh, Annalee Montoya [facility] 16:13:00 [facility] HEMODIALYSIS INPATIENT 2022-01-08 Lexie, Ahmed [facility] 15:47:52 [facility] HEPATITIS B SURFACE ANTIGEN 2022-01-08 Lexie, Ahmed [facility] 15:40:00 [facility] HEPATITIS B SURFACE ANTIBODY 2022-01-08 Lexie, Ahmed [facility] 15:40:00 [facility] POCT-GLUCOSE METER 2022-01-08 Shieh, Annalee Montoya [facility] 12:18:00 [facility] POCT-GLUCOSE METER 2022-01-08 Shieh, Annalee Montoya [facility] 07:59:00 [facility] CBC W/PLT COUNT & AUTO 2022-01-08 Shieh, Annalee Montoya [facility] DIFFERENTIAL 05:27:00 [facility] BASIC METABOLIC PANEL 2022-01-08 Shieh, Annalee Montoya [facility] 05:27:00 [facility] MAGNESIUM 2022-01-08 Shieh, Annalee Montoya [facility] 05:27:00 Medical Center PHOSPHORUS 2022-01-[address] [facility] 05:27:00 [facility] HEMOGLOBIN A1C 2022-01-[address] [facility] 05:27:00 [facility] CBC W/PLT COUNT & AUTO 2022-01-[address] [facility] DIFFERENTIAL 05:27:00 [facility] APTT 2022-01-[address] [facility] 05:26:00 [facility] POCT-GLUCOSE METER 2022-01-[address] [facility] 21:01:00 [facility] APTT 2022-01-[address] [facility] 21:00:00 [facility] CARDIAC CATH REPORT - SCAN 2022-01-07 Provider, Default [facility] 00:00:00 Scanning [facility] EKG-SCANNED 2022-01-07 Provider, Default [facility] 00:00:00 Scanning [facility] HEMODIALYSIS 2021-09-16 Marycarmen Matson 20:36:27 [facility] POC GLUCOSE 2021-09-16 Avery-Lalarryq, Corrine Shinto 15:59:00 Hospital POC GLUCOSE 2021-09-16 Avery-Lalarryq, Corrine Shinto 11:10:00 Hospital POC GLUCOSE 2021-09-16 Avery-LahiqCorrine Shinto 01:24:00 Hospital POC GLUCOSE 2021-09-15 Al-Lahiq, Maha Shinto 20:54:00 Hospital POC GLUCOSE 2021-09-15 Avery-Lahiq, Whita Shinto 16:27:00 Hospital POC GLUCOSE 2021-09-15 Al-Lahiq, Corrine Shinto 12:04:00 Hospital POC GLUCOSE 2021-09-15 Al-Lahiq, Whita Shinto 11:16:00 Hospital POC GLUCOSE 2021-09-15 Al-Lahiq, Corrine Shinto 01:21:00 Hospital POC GLUCOSE 2021-09-14 Al-Lahiq, Whita Shinto 21:57:00 Hospital POC GLUCOSE 2021-09-14 Al-Lahiq, Maha Shinto 17:17:00 [facility] IR TUNNELED DIALYSIS CATHETER 2021-09-14 Michoacano Owens thodist REPLACEMENT/EXCHANGE 13:59:03 [facility] HEMODIALYSIS 2021-09-14 Marycarmen Matson 12:42:40 [facility] POC GLUCOSE 2021-09-14 Corrine Osuna 11:19:00 [facility] BASIC METABOLIC PANEL 2021-09-14 Marycarmen Matson 09:34:00 [facility] ESTIMATED GFR 2021-09-14 Marycarmen Matson 09:34:00 [facility] ZZCOVID-19 ANTI-SPIKE IGG ANTIBODY 2021-09-14 Michoacano Owens TITER 03:25:00 [facility] TYPE AND SCREEN 2021-09-14 Michoacano Owens 03:25:00 [facility] ZZCOVID-19 SEROLOGY PATIENT 2021-09-14 Michoacano Owens Meth odist SURVEILLANCE 03:25:00 [facility] POC GLUCOSE 2021-09-14 Corrine Osuna 01:33:00 Hospital POC GLUCOSE 2021-09-13 Corrine Osuna 23:43:00 Hospital SURGICAL PATHOLOGY REQUEST 2021-09-13 Corrine Osuna dist 20:11:00 Hospital ESOPHAGOGASTRODUODENOSCOPY (EGD) 2021-09-13 Marycarmen Lopez 19:58:00 [facility] POC GLUCOSE 2021-09-13 Corrine Osuna 17:23:00 Hospital POC GLUCOSE 2021-09-13 Corrine Osuna 11:26:00 Hospital BASIC METABOLIC PANEL 2021-09-13 Marycarmen Matson 10:25:00 [facility] CBC WITH PLATELET AND DIFFERENTIAL 2021-09-13 Whit Osuna 10:25:00 Hospital PARTIAL THROMBOPLASTIN TIME (PTT) 2021-09-13 Corrine Osuna 10:25:00 Hospital ESTIMATED GFR 2021-09-13 Marycarmen Matson 10:25:00 [facility] PROTHROMBIN TIME WITH INR 2021-09-13 Corrine Osuna ist 10:25:00 Hospital POC GLUCOSE 2021-09-13 Avery-Corrine Dozier 00:48:00 Hospital ECG 12-LEAD 2021-09-12 Marycarmen Lopez 23:22:14 [facility] POC GLUCOSE 2021-09-12 Al-Corrine Dozier 22:53:00 Hospital POC GLUCOSE 2021-09-12 Al-KaitlynqCorrine 21:49:00 Hospital POC GLUCOSE 2021-09-12 Al-Corrine Dozier 16:57:00 Hospital POC GLUCOSE 2021-09-12 Al-KaitlynqCorrine 11:26:00 Hospital POC GLUCOSE 2021-09-12 Al-Corrine Dozier 11:01:00 [facility] BASIC METABOLIC PANEL 2021-09-12 Marycarmen Matson 09:15:00 [facility] ESTIMATED GFR 2021-09-12 Marycarmen Matson 09:15:00 [facility] HEMODIALYSIS 2021-09-12 Marycarmen Matson 02:06:24 [facility] POC GLUCOSE 2021-09-12 Avery-Corrine Dozier 01:05:00 Hospital POC GLUCOSE 2021-09-11 Corrine Osuna 21:53:00 Hospital POC GLUCOSE 2021-09-11 Avery-Corrine Dozier 16:41:00 Hospital HEMODIALYSIS 2021-09-11 Marycarmen Matson 15:53:24 [facility] POC GLUCOSE 2021-09-11 Corrine Osuna 11:14:00 [facility] [place] [id number] ANTI-SPIKE IGG ANTIBODY 2021-09-11 Whit Osuna TITER 09:40:00 Hospital BASIC METABOLIC PANEL 2021-09-11 Marycarmen Matson 09:40:00 [facility] HEMOGLOBIN A1C 2021-09-11 Corrine Osuna 09:40:00 [place] [id number] SEROLOGY PATIENT 2021-09-11 Corrine Osuna Meth odist SURVEILLANCE 09:40:00 Hospital CBC WITH PLATELET AND DIFFERENTIAL 2021-09-11 Al-Lahiq, Whit sanchez Shinto 09:40:00 Hospital ESTIMATED GFR 2021-09-11 Marycarmen Matson 09:40:00 [facility] POC GLUCOSE 2021-09-11 Al-Lahiq, Corrine Shinto 00:39:00 Hospital POC GLUCOSE 2021-09-10 Al-Lahiq, Corrine Shinto 21:14:00 Hospital CORTISOL LEVEL, AM 2021-09-10 Al-Lahiq, Corrine Shinto 16:58:00 Hospital POC GLUCOSE 2021-09-10 Al-Lahiq, Corrine Shinto 15:59:00 Hospital POC GLUCOSE 2021-09-10 Al-Lahiq, Corrine Shinto 11:26:00 Hospital BASIC METABOLIC PANEL 2021-09-10 Dano Shinto 09:55:00 [facility] ESTIMATED GFR 2021-09-10 Dano Shinto 09:55:00 [facility] POC GLUCOSE 2021-09-10 Al-Lahiq, Corrine Shinto 00:18:00 Hospital POC GLUCOSE 2021-09-09 Al-Lahiq, Corrine Shinto 21:28:00 Hospital POC GLUCOSE 2021-09-09 Al-Lahiq, Corrine Shinto 16:28:[address] HEAD WO CONTRAST 2021-09-09 Al-KaitlynqCorrine Shinto 14:48:37 Hospital HEMODIALYSIS 2021-09-09 Marycarmen Matson 14:08:47 [facility] POC GLUCOSE 2021-09-09 Al-Lahiq, Corrine Shinto 11:30:00 Hospital BASIC METABOLIC PANEL 2021-09-09 Dano Shinto 10:45:00 [facility] ESTIMATED GFR 2021-09-09 Marycarmen Matson 10:45:00 [facility] POC GLUCOSE 2021-09-09 Al-Lahiq, Corrine Shinto 01:10:00 Hospital POC GLUCOSE 2021-09-08 Al-Lahiq, Corrine Shinto 21:16:00 Hospital POC GLUCOSE 2021-09-08 AlCorrine Davis Shinto 16:10:00 Hospital BASIC METABOLIC PANEL 2021-09-08 Haja Fraser Shinto 09:27:00 Hospital MAGNESIUM LEVEL 2021-09-08 Haja Fraser 09:27:00 Hospital ESTIMATED GFR 2021-09-08 Haja Fraser Shinto 09:27:00 Hospital GASTROINTESTINAL PANEL 2021-09-08 Marley Cronin 02:15:00 Hospital POC GLUCOSE 2021-09-08 Avery-Corrine Dozier Shinto 01:30:00 Hospital BASIC METABOLIC PANEL 2021-09-07 Al-Tasia Mahlaura Shinto 18:00:00 Hospital ESTIMATED GFR 2021-09-07 Al-Tasia, Corrine Shinto 18:00:00 Hospital HEPATITIS B SURFACE ANTIGEN 2021-09-07 Florenceaharkjagdish, Meth odist 18:00:00 [facility] HEPATITIS B SURFACE AB, 2021-09-07 Florenceaharkjagdish, Methodis t QUANTITATIVE 18:00:00 [facility] XR CHEST 1 VW PORTABLE 2021-09-07 Corrine Osuna Shinto 16:47:43 Hospital XR ABDOMEN 1 VW 2021-09-07 Avery-Corrine Dozier Shinto 16:47:22 Hospital HEMODIALYSIS 2021-09-07 Haja Fraser Shinto 16:16:15 Hospital POC GLUCOSE 2021-09-07 Avery-Corrine Dozier Shinto 11:07:00 Hospital TROPONIN T 2021-09-07 Trinidad Menard Shinto 03:35:00 [facility] TROPONIN T 2021-09-07 Marley Cronin 00:00:00 Hospital RESPIRATORY PATHOGEN PANEL WITH 2021-09-06 Marley Cronin COVID-19 RT-PCR 23:59:[address] ABDOMEN PELVIS WO CONTRAST 2021-09-06 Marley Cronin Tx thodist 22:16:48 Hospital ECG ED PRELIMINARY INTERPRETATION 2021-09-06 Kimmy Cronin Shinto 21:23:51 Hospital ECG 12-LEAD 2021-09-06 Marley Cronin 20:48:53 Hospital CBC WITH PLATELET AND DIFFERENTIAL 2021-09-06 Alecia Cronin Shinto 20:09:00 Hospital COMPREHENSIVE METABOLIC PANEL 2021-09-06 Marley Cronin thodist 20:09:00 Hospital ESTIMATED GFR 2021-09-06 Marley Cronin 20:09:00 Hospital MAGNESIUM LEVEL 2021-09-06 Marley Cronin 20:09:00 Hospital TROPONIN T 2021-09-06 Marley Cronin 20:09:00 Hospital PHOSPHORUS LEVEL 2021-09-06 Marley Cronin 20:09:00 Hospital POC GLUCOSE 2021-08-13 Kohlnhohafsa Shinto 16:22:00 [facility] POC GLUCOSE 2021-08-13 Kohlnhofer Shinto 11:17:00 [facility] XR CHEST 1 VW PORTABLE 2021-08-13 Josemanuel Vences 11:13:27 [facility] BASIC METABOLIC PANEL 2021-08-13 Josemanuel Vences 10:26:00 [facility] ESTIMATED GFR 2021-08-13 Josemanuel Vences 10:26:00 [facility] POC GLUCOSE 2021-08-13 KohlnhoMarycarmen pereyra 00:38:00 [facility] HEMODIALYSIS 2021-08-13 Josemanuel Vences 00:09:24 Hospital MI AN ELECTIVE ENDOTRACHEAL AIRWAY 2021-08-12 Leodan Rebolledo 23:45:00 Hospital INSERTION, CATHETER, DIALYSIS, 2021-08-12 Josemanuel Vences ethodist PERITONEAL, LAPAROSCOPIC 23:10:00 Hospita l POC GLUCOSE 2021-08-12 KohlnhoMarycarmen pereyra 20:36:00 [facility] COVID-19 QUALITATIVE RT-PCR 2021-08-12 Ti Postist 17:35:00 Hospital POC GLUCOSE 2021-08-12 Kohlnhofer Shinto 15:58:00 [facility] POC GLUCOSE 2021-08-12 Kohlnhofer Shinto 11:07:00 [facility] ECG 12-LEAD 2021-08-12 Marycarmen Mcdonald 11:02:[facility] 2021-08-12 Marycarmen Matson 09:47:00 [facility] ESTIMATED GFR 2021-08-12 Marycarmen Matson 09:47:00 [facility] POC GLUCOSE 2021-08-12 Kohlnhofer, Shinto 00:51:00 [facility] POC GLUCOSE 2021-08-11 Kohlnhofer, Shinto 20:44:00 [facility] POC GLUCOSE 2021-08-11 Kohlnhofer, Shinto 16:14:00 [facility] POC GLUCOSE 2021-08-11 Kohlnhofer, Shinto 11:06:00 [facility] POC GLUCOSE 2021-08-11 Kohlnhofer, Shinto 00:30:00 [facility] POC GLUCOSE 2021-08-10 Kohlnhofer, Shinto 20:48:00 [facility] POC GLUCOSE 2021-08-10 Kohlnhofer, Shinto 11:07:00 [facility] POC GLUCOSE 2021-08-10 Kohlnhofer, Shinto 00:46:00 [facility] POC GLUCOSE 2021-08-09 Kohlnhofer, Shinto 21:37:00 [facility] HEMODIALYSIS 2021-08-09 FlorenceaharkMarycarmen dubon 17:13:01 [facility] POC GLUCOSE 2021-08-09 Kohlnhofer, Shinto 16:55:00 [facility] POC GLUCOSE 2021-08-09 Tammy Dumont 11:19:00 [facility] BASIC METABOLIC PANEL 2021-08-09 FlorenceMarycarmen jauregui 10:52:00 [facility] ESTIMATED GFR 2021-08-09 Marycarmen Matson 10:52:00 [facility] PROCALCITONIN 2021-08-09 Hyacinth Guthrie 02:51:00 [facility] POC GLUCOSE 2021-08-09 Tammy Dumont 00:26:00 [facility] POC GLUCOSE 2021-08-08 Tammy Dumont 21:18:00 [facility] POC GLUCOSE 2021-08-08 Tammy Dumont 19:34:00 [facility] POC GLUCOSE 2021-08-08 Tammy Dumont 10:58:00 [facility] DIGOXIN LEVEL 2021-08-08 Ritu Graves 10:46:00 [facility] BASIC METABOLIC PANEL 2021-08-08 Marycarmen Matson 10:46:00 [facility] ESTIMATED GFR 2021-08-08 Marycarmen Matson 10:46:00 [facility] POC GLUCOSE 2021-08-08 Tammy Dumont 02:06:00 [facility] POC GLUCOSE 2021-08-07 Tammy Dumont 23:09:00 [facility] HEMODIALYSIS 2021-08-07 Marycarmen Matson 20:13:07 [facility] POC GLUCOSE 2021-08-07 Tammy Dumont 15:50:00 [facility] POC GLUCOSE 2021-08-07 Tammy Dumont 11:19:00 [facility] CBC WITH PLATELET AND DIFFERENTIAL 2021-08-07 Steven Lucero 11:15:00 [facility] COMPREHENSIVE METABOLIC PANEL 2021-08-07 Rupali Lucero 11:15:00 [facility] ESTIMATED GFR 2021-08-07 Rupali Lucero 11:15:00 [facility] POC GLUCOSE 2021-08-07 Tammy Dumont 00:58:00 [facility] HEMODIALYSIS 2021-08-06 Marycarmen Matson 21:36:17 [facility] POC GLUCOSE 2021-08-06 Mougouris, Taso Shinto 21:21:00 Hospital POC GLUCOSE 2021-08-06 Vladimirugouris, Taso Shinto 15:39:00 [facility] BASIC METABOLIC PANEL 2021-08-06 Marycarmen Matson 11:19:00 [facility] ESTIMATED GFR 2021-08-06 Marycarmen Matson 11:19:00 [facility] POC GLUCOSE 2021-08-06 Mougouris, Taso Shinto 09:09:00 Hospital POC GLUCOSE 2021-08-06 Mougouris, Taso Shinto 04:44:00 Hospital HEMODIALYSIS 2021-08-06 Marycarmen Matson 02:34:43 [facility] POC GLUCOSE 2021-08-06 Mougouris, Taso Shinto 01:09:00 Hospital XR CHEST 1 VW PORTABLE 2021-08-05 Joanna Leiva 23:40:00 Hospital POC GLUCOSE 2021-08-05 Mougouris, Taso Shinto 21:24:00 Hospital OR FL < 1 HOUR 2021-08-05 Joanna Leiva 21:05:00 Hospital MI AN ELECTIVE SUPRAGLOTTIC AIRWAY 2021-08-05 Grazyna Martinez 20:19:00 [facility] INSERTION, CATHETER, CENTRAL 2021-08-05 Joanna Leiva VENOUS, TUNNELED, FOR HEMODIALYSIS 20:13:00 Hospital TYPE AND SCREEN 2021-08-05 Sincere, Ti UJeannine PaceShinto 20:09:00 Hospital POC GLUCOSE 2021-08-05 Tasneem Ellison 15:43:00 Hospital ECG 12-LEAD 2021-08-05 Sincere, Ti Paceist 14:07:10 Hospital POC GLUCOSE 2021-08-05 Marycarmen Ayers 11:25:00 [facility] XR CHEST 1 VW PORTABLE 2021-08-05 Sincere, Ti Mitchell t 11:17:10 Hospital CBC WITH PLATELET AND DIFFERENTIAL 2021-08-05 Steven Lucero 10:45:00 [facility] BASIC METABOLIC PANEL 2021-08-05 Rupali Lucero 10:45:00 [facility] ESTIMATED GFR 2021-08-05 Rupali Lucero 10:45:00 [facility] POC GLUCOSE 2021-08-05 Marycarmen Ayers 00:57:00 [facility] POC GLUCOSE 2021-08-04 Marycarmen Ayers 16:51:00 [facility] XR ABDOMEN 1 VW 2021-08-04 Rupali Lucero 16:40:00 [facility] POC GLUCOSE 2021-08-04 Tammy Dumont 11:24:00 [facility] HC COMPLETE BLD COUNT W/AUTO DIFF 2021-08-04 Tammy Dumont 11:06:00 [facility] BASIC METABOLIC PANEL 2021-08-04 Marycarmen Matson 11:06:00 [facility] MAGNESIUM LEVEL 2021-08-04 Rupali Lucero 11:06:00 [facility] PHOSPHORUS LEVEL 2021-08-04 Rupali Lucero 11:06:00 [facility] ESTIMATED GFR 2021-08-04 Marycarmen Matson 11:06:00 [facility] POC GLUCOSE 2021-08-04 Tammy Dumont 00:57:00 [facility] POC GLUCOSE 2021-08-03 Tammy Dumont 21:36:00 [facility] HEPATITIS B CORE ANTIBODY TOTAL 2021-08-03 Marycarmen Matson 17:42:00 [facility] HEPATITIS B SURFACE AB, 2021-08-03 Stephen Matson t QUANTITATIVE 17:42:00 [facility] HEPATITIS C ANTIBODY 2021-08-03 Marycarmen Matson 17:42:00 [facility] HEPATITIS B SURFACE ANTIGEN 2021-08-03 Andrea Matson 17:42:00 [facility] POC GLUCOSE 2021-08-03 Tammy Dumnot 16:38:00 [facility] POC GLUCOSE 2021-08-03 Tammy Dumont 11:29:00 [facility] HC COMPLETE BLD COUNT W/AUTO DIFF 2021-08-03 Ender Lucero 11:03:00 [facility] BASIC METABOLIC PANEL 2021-08-03 Rupali Lucero 11:03:00 [facility] PHOSPHORUS LEVEL 2021-08-03 Marycarmen Matson 11:03:00 [facility] PARATHYROID HORMONE 2021-08-03 José Espino 11:03:00 [facility] ESTIMATED GFR 2021-08-03 Rupali Lucero 11:03:00 [facility] POC GLUCOSE 2021-08-03 Tammy Dumont 00:22:00 [facility] CV STRESS TEST NUCLEAR CARDIO 2021-08-02 Me rudy Mcdonald 21:45:00 [facility] NM MYOCARDIAL PERFUSION REST 2021-08-02 Met ada Mcdonald STRESS 1 DAY 21:45:00 [facility] POC GLUCOSE 2021-08-02 Tammy Dumont 21:08:00 [facility] POC GLUCOSE 2021-08-02 Tmamy Dumont 16:34:00 [facility] POC GLUCOSE 2021-08-02 Tammy Dumont 11:19:00 [facility] HC COMPLETE BLD COUNT W/AUTO DIFF 2021-08-02 Ender Lucero 09:43:00 [facility] BASIC METABOLIC PANEL 2021-08-02 Rupali Lucero 09:43:00 [facility] MAGNESIUM LEVEL 2021-08-02 Rupali Lucero 09:43:00 [facility] ESTIMATED GFR 2021-08-02 Rupali Lucero Shinto 09:43:00 [facility] POC GLUCOSE 2021-08-02 Tammy Dumont Shinto 00:15:00 [facility] POC GLUCOSE 2021-08-01 Tammy Dumontist 20:02:00 [facility] POC GLUCOSE 2021-08-01 Tammy Dumont Shinto 16:16:00 [facility] POC GLUCOSE 2021-08-01 Tammy Dumontist 11:16:00 [facility] BASIC METABOLIC PANEL 2021-08-01 Theresa Ramos t 10:56:00 Hospital MAGNESIUM LEVEL 2021-08-01 Theresa Ramos 10:56:00 Hospital PHOSPHORUS LEVEL 2021-08-01 Theresa Ramos 10:56:00 Hospital HC COMPLETE BLD COUNT W/AUTO DIFF 2021-08-01 Ender Luceroist 10:56:00 [facility] ESTIMATED GFR 2021-08-01 Theresa Ramos 10:56:00 Hospital ECG 12-LEAD 2021-08-01 Marycarmen Mcdonald 08:03:48 [facility] POC GLUCOSE 2021-08-01 Tammy Dumont 01:35:00 [facility] TTE COMPLETE, WO CONTRAST, W 2021-07-31 Harry, [facility] DOPPLER ([id number]) 23:38:00 [facility] POC GLUCOSE 2021-07-31 Tammy Dumont 22:40:00 [facility] COVID-19 QUALITATIVE RT-PCR 2021-07-31 Rupali Lucero [facility] 17:14:00 [facility] POC GLUCOSE 2021-07-31 Tammy Dumont 17:07:00 [facility] POC GLUCOSE 2021-07-31 Tammy Dumont 12:13:00 [facility] B NATRIURETIC PEPTIDE 2021-07-31 José Espino 11:34:00 [facility] BASIC METABOLIC PANEL 2021-07-31 José Espino 11:34:00 [facility] HC COMPLETE BLD COUNT W/AUTO DIFF 2021-07-31 José Espino 11:34:00 [facility] TROPONIN T 2021-07-31 José Espino 11:34:00 [facility] ESTIMATED GFR 2021-07-31 José Espino 11:34:00 [facility] Plan of Care Planned Activity Planned [...] RISK Medical C enter SCREENING] Future Scheduled 2022-05-[address] [facility] Test 00:00:00 (12+) [code = Medical Center DEPRESSION SCREENING (12+)] Future Scheduled 2022-05-22 FALLS RISK SCREENING [facility] Test 00:00:00 [code = FALLS RISK Medical C enter SCREENING] Future Scheduled 2022-05-17 DIABETIC FOOT EXAM [facility] Test 10:42:08 [code = DIABETIC FOOT EXAM] Future Scheduled 2022-05-17 COLONOSCOPY SCREENING [facility] Test 10:42:08 [code = COLONOSCOPY SCREENING] Future Scheduled 2022-05-17 DIABETES: RETINAL EYE [facility] Test 10:42:08 EXAM [code = DIABETES: RETINAL EYE EXAM] Future Scheduled 2022-05-17 SHINGLES VACCINES (1 Met [facility] Test 10:42:08 of 2) [code = SHINGLES VACCINES (1 of 2)] Future Scheduled 2022-05-17 BREAST CANCER [facility] Test 10:42:08 SCREENING [code = BREAST CANCER SCREENING] Future Scheduled 2022-05-17 COVID-19 VACCINE (4 - Me [facility] Test 10:42:08 Booster for Pfizer series) [code = COVID-19 VACCINE (4 - Booster for Pfizer series)] Future Scheduled 2022-05-17 INFLUENZA VACCINE [facility] Test 10:42:08 [code = INFLUENZA VACCINE] [...] 00:00:00 (2 - PPSV23 or PCV20) Medica [facility] [code = PNEUMOCOCCAL 65+ YRS (2 - PPSV23 or PCV20)] Future Scheduled 2021-03-10 PNEUMOCOCCAL 65+ YRS [facility] Test 00:00:00 (2 - PPSV23 or PCV20) Medica [facility] Center [code = PNEUMOCOCCAL 65+ YRS (2 - PPSV23 or PCV20)] Future Scheduled 2021-03-10 PNEUMOCOCCAL 65+ YRS [facility] Test 00:00:00 (2 - PPSV23 or PCV20) [facility] [code = PNEUMOCOCCAL 65+ YRS [...] [facility] es Test 00:00:00 malignant neoplasm of [facility] breast (procedure) [code = 507134926] Future Scheduled [address] [facility] Test 00:00:00 (combo) [code = CT Medical C enter Colonography (combo)] Future Scheduled [address] [facility] Test 00:00:00 malignant neoplasm of [facility] Center colon (procedure) [code = 127396862] Future Scheduled [address] [facility] Test 00:00:00 malignant neoplasm of [facility] Center colon (procedure) [code = 124567063] Future Scheduled 1948 DXA SCAN [code = DXA [facility] Test 00:00:00 SCAN] [facility] Future Scheduled [address] [facility] Test 00:00:00 malignant neoplasm of [facility] Center colon (procedure) [code = 035667903] Future Scheduled [address] [facility] Test 00:00:00 malignant neoplasm of [facility] Center colon (procedure) [code = 850129426] Future Scheduled 1948 Sigmoidoscopy [facility]code [facility] Future Scheduled [address] [facility] Test 00:00:00 malignant neoplasm of [facility] Center breast (procedure) [code = 296021308] Future Scheduled [address] [facility] Test 00:00:00 (combo) [code = CT Medical C enter Colonography (combo)] Future Scheduled [address] [facility] Test 00:00:00 malignant neoplasm of [facility] Center colon (procedure) [code = 088338175] Future Scheduled [address] [facility] Test 00:00:00 malignant neoplasm of [facility] Center colon (procedure) [code = 927518669] Future Scheduled 1948 DXA SCAN [code = DXA [facility] Test 00:00:00 SCAN] [facility] Future Scheduled [address] [facility] [facility] Test 00:00:00 malignant neoplasm of [facility] Center colon (procedure) [code = 142728826] Future Scheduled [address] [facility] Test 00:00:00 malignant neoplasm of [facility] Center colon (procedure) [code = 091693507] Future Scheduled 1948 Sigmoidoscopy [facility]oscopy] Medical Felipe r Future Scheduled [address] [facility] Test 00:00:00 malignant neoplasm of [facility] Center breast (procedure) [code = 410213867] Future Scheduled [address] [facility] 00:00:00 (combo) [code = CT Medical C enter Colonography (combo)] Future Scheduled [address] [facility] Test 00:00:00 malignant neoplasm of [facility] Center colon (procedure) [code = 869647401] Future Scheduled [address] [facility] Test 00:00:00 malignant neoplasm of [facility] Center colon (procedure) [code = 715422596] Future Scheduled 1948 DXA SCAN [code = DXA [facility] Test 00:00:00 SCAN] [facility] Future Scheduled [address] [facility] [facility] Test 00:00:00 malignant neoplasm of [facility]ica [facility] Center colon (procedure) [code = 008224623] Future Scheduled [address] [facility] Test 00:00:00 malignant neoplasm of [facility]ica l Center colon (procedure) [code = 740332608] Future Scheduled 1948 Sigmoidoscopy [facility]oscopy] [facility] Felipe r Encounters Start End Encounter Admission Attending Care Care Encounter Source Date/Time Date/Time Type Type Clinicians Facility Department ID 2022-06-08 Inpatient EL Alfredo, HCACL DAYS [id number] [facility] 09:00:00 Greg 07 [facility] 2022-01-05 Inpatient UR [id number] [facility] 13:58:43 [facility] 2021-11-04 Outpatient [facility] [id number] [place] 14:10:46 [id number] [facility] 2021-08-11 Outpatient [facility] [id number] [place] 09:26:19 [id number] [facility] 2022-07-05 2022-07-05 Orders Doctor MACKENZIE 1.2.840.114 [id number] Univers 00:00:00 00:00:00 Only Unassigned, YARELI 350.1.13.10 ity of [facility] 4.2.7.2.686 Kev as [phone] [address] 2022-04-01 2022-04-01 Orders Doctor MACKENZIE 1.2.840.114 [id number] Univers 00:00:00 00:00:00 Only Unassigned, YARELI 350.1.13.10 ity of [facility] 4.2.7.2.686 Kev as [phone] [address] 2022-03-24 2022-03-24 [facility] 1.2.252.126 [id number] Univers 00:00:00 00:00:00 Luc S HEALTH 350.1.13.10 it y of [place] 4.2.7.2.686 Kev as MARISA?BLEA [phone] [place] garcía LOVE [address] [place] [address] OFFICE [facility] 2022-03-23 2022-03-23 [facility]phone [facility] 1.2.543.886 [id number] Univers 00:00:00 00:00:00 Luc S HEALTH 350.1.13.10 it y of [place] 4.2.7.2.686 Kev as MARISA?BLEA [phone] Tx garcía LOVE [address] [place] [address] 2022-03-18 2022-03-18 Telephone Berenice [facility] 1.2.840.114 [id number] Univers 00:00:00 00:00:00 Alannah L HEALTH 350.1.13.10 it y of [place] 4.2.7.2.686 Kev as MARISA?BLEA [phone] [place]x garcía LOVE [address] [facility] OFFICE [facility] 2022-03-16 2022-03-16 Telephone [facility] 1.2.840.114 [id number] Univers 00:00:00 00:00:00 Alannah L SPECIALTY 350.1.13.10 ity [place] [phone] [place] garcía [place] [address] [place] [address] 2022-01-07 2022-01-18 Hospital UR Annalee Bey [facility] [id number] 17:48:00 16:48:00 Encounter Reji [facility] 2022-01-07 2022-01-18 Hospital Annalee Bey [facility] [id number] 17:48:00 16:48:00 Encounter Reji [facility] 2022-01-07 2022-01-[address] [facility] Surgery [id number] [facility] 17:48:00 16:48:00 ANNALEE 2022-01-07 2022-01-07 Travel [facility] [id number] [facility] 00[facility]00 [facility] 2022-01-07 2022-01-07 Travel [facility] [id number] [facility] 00:[facility]00 00:[facility]:00 [facility] 2022-01-02 2022-01-02 Outpatient Debora [facility] [id number] [facility] 00:00:00 00:00:00 ALANNAH durand [facility] 2021-09-06 2021-09-16 Hospital Derian Trinidad Libia 1.2.840.1 [id number] Methodi 14:46:00 18:55:00 Encounter Corrine Osuna 46164.1.[address] 3.430.2.7 Hospit a .3.636238 l .8 2021-09-13 2021-09-13 Anesthesia Natasha, 1.2.840.1 [id number] Methodi 14:58:00 15:19:00 Event Edwin 18507.1.[address] Alannah 3.430.2.7 Hospit a .3.633531 l .8 2021-09-13 2021-09-13 Surgery John, 1.2.840.1 [id number] Methodi 14:22:00 14:27:[address] [facility] 3[facility]430[facility]7 Hospit a .3.462617 l .8 2021-09-06 2021-09-06 Travel 1.2.840.1 1.2.378.586 5541 [id number] Methodi 00:00:00 00:00:[address] 3.430.2.7 0.2.7.3.698 Ho spita .3.962357 084.8 l .8 2021-07-31 2021-08-13 [facility] Tammy Dumont 1.2.840.1 [id number] [id number] Methodi 04:12:00 19:46:00 Encounter Armen Edwin 37251.1.[address] Tasneem Ellison 3.430.2.7 Hospita Annalee Nuñez .3.775037 l .8 2021-08-12 2021-08-12 Anesthesia Leodan Rebolledo 1.2.840.1 [id number] 2 [id number] Methodi 18:09:00 19:38:[address] 3.430.2.7 Hospit a .3.385344 l .8 2021-08-12 2021-08-12 Surgery Ru, 1.2.840.1 [id number] 1377 Methodi 17:35:00 18:50:[address] 3.430.2.7 Hospit a .3.377829 l .8 2021-08-05 2021-08-05 Anesthesia Andre Navarro 1.2.840.1 [id number] Methodi 15:12:00 16:16:00 Event Grazyna Martinez 86503.1.[address] 3.430.2.7 Hospit a .3.645953 l .8 2021-08-05 2021-08-05 Surgery bAbie 1.2.840.1 [id number] 7887 Methodi 15:20:00 16:05:[address] 3.430.2.7 Hospit a .3.748232 l .8 2021-08-02 2021-08-02 Documentat Provider, 1.2.840.1 [id number] Methodi 00:00:00 00:00:00 ion Unknown 64590.1.[address] 3.430.2.7 Hospit a .3.322357 l .8 2021-07-14 2021-07-14 Transcribe Vanda 1.2.840.1 [id number] Methodi 00:00:00 00:00:00 Orders , Zulema 71881.1.[address] 3.430.2.7 Hospit a .3.479083 l .8 2021-06-10 2021-06-10 Clinical 1.2.840.1 [id number] 87940 Methodi 15:45:00 15:58:[address] 3.430.2.7 Hospit a .3.342258 l .8 2021-06-10 2021-06-10 Travel 1.2.840.1 1.2.155.955 8031 020224 Methodi 00:00:00 00:00:[address] 3.430.2.7 0.2.7.3.698 Ho spita .3.453060 084.8 l .8 2021-06-09 2021-06-09 Outpatient Daniel_T VFP VFP [id number] [address] 11:40:00 11:40:00 [id number] Family Practic e 2021-06-01 2021-06-04 Outpatient AL-TASIA, [facility] 064 [id number] 96727 [place] 00:00:00 00:00:00 MAHA [address] 2020-08-05 2020-08-05 Outpatient VANDA [facility] [id number] [place] 00:00:00 00:00:00 , ZULEMA [address] 2020-07-09 2020-07-09 Outpatient [facility] [id number] [place] 00:00:00 00:00:[address] 2020-06-18 2020-06-18 Outpatient [facility] [id number] [place] 00:00:00 00:00:00 692 Method i 2020-04-05 2020-04-06 Outpatient AL-LAHIQ, [place] [address] 70850 24565 [place] 00:00:00 00:00:00 MAHA 881 Method i 2020-03-22 2020-03-25 Inpatient AL-LAHIQ, [place] [address] [id number] 0502 [place] 00:00:00 00:00:00 MAHA 725 Method i 2020-02-27 2020-02-27 Outpatient BHUMI, [facility] [id number] 3601 [place] 00:00:00 00:00:00 DAVID 385 Method i 2020-02-17 2020-02-18 Outpatient AL-LAHIQ, [place] [address] 65214 98766 [place] 00:00:00 00:00:00 MAHA 408 Method i 2020-01-17 2020-01-18 Emergency JOSE A, [place] [address] [id number] 46 [place] 00:00:00 00:00:00 SHAKEEL 668 Method i 2019-10-23 2019-10-26 Inpatient AL-LAHIQ, [place] [address] [id number] 0723 [place] 00:00:00 00:00:00 MAHA 153 Method i 2019-08-05 2019-08-05 Outpatient FRIEND-SAMJONNY [facility] 685 [id number] [place] 00:00:00 00:00:00 , ZULEMA 952 Method i 2019-07-10 2019-07-12 Inpatient AL-LAHIQ, [facility] [id number] 3202 [place] 00:00:00 00:00:00 MAHA 402 Method i 2019-03-27 2019-03-30 Outpatient TEQWIMUAH, [facility] 2100 [id number] [place] 00:00:00 00:00:00 SARAI [address] Results Test Description Test Time Test Comments Results Result Comments Source POC-Glucose meter 2022-01-18 12:22:13 Test Item Value Reference Range Interpretation Comme nts POC-Glucose Meter (test code = 102 mg/dL 70-110 : TESTED AT [facility] [address] [place] [address]) [facility] [address]: Filer Finish/Techni faviola ID = [id number] for Myriam Lopez Lab Interpretation (test code = Normal 67904-1) [facility] [id number] 12:22:13 Test Item Value Reference Range Interpretation Comments POC-Glucose Meter (test 102 mg/dL 70-110 : TE STED AT [facility] code = 1538) [address] [facility] [address]: Filer Finish/Techni faviola ID = [id number] for Yelling, Yoland a Lab Interpretation (test Normal code = 35924-6) [facility]-Glucose [id number] 12:22:13 Test Item Value Reference Range Interpretation Comments POC-Glucose Meter (test 102 mg/dL 70-110 : TE STED AT [facility] code = 1538) [address] [facility] [address]: Filer Finish/Techni faviola ID = [id number] for Yelling, [place]oland a Lab Interpretation (test Normal code = 15221-4) [facility]-GLUCOSE [id number] 12:22:13 Test Item Value Reference Range Interpretation Comments POC-GLUCOSE METER 102 mg/dL 70-110 : TESTED A T [facility] 1317 (BEAKER) (test code [facility], = 1538) [facility] 77 478: Filer Finish/Techni faviola ID = [id number] for [place] ing, Zuri BASIC METABOLIC [id number] 06:40:34 Test Item Value Reference Range Interpretation [...] not appl icable for dialysis patien ts Filer Finish ID - [id number] ID - OHPBOFUZV302Uawetfeo ID - ZHUTCMMIE135Qbzcbcio ID - LVWJKFBYW048Guhvjgsz ID - HPNPFMJHU576Lfnnjjgq ID - DYWTFFXMF712Toajwpnj ID - BRGZREYCL406Ulzyzqna ID - EBLONLACT544Bwhskujp ID - HKPAXOEMO732Bowvvbgo ID - [id number] ID - SHMIZNFUX909Gcsvvglz ID - UOQXVJODX524Emnobylp ID - OAUUBTUFA074DEHP-TRDVUEO [id number] 19:58:07 Test Item Value Reference Range Interpretation Comments POC-GLUCOSE METER 126 mg/dL 70-110 H : TESTED A [facility] ([facility]) (test code [facility], = 1538) [place] [address]: Filer Finish/Techni faviola ID = [id number] for Ina Agrawal POCT-GLUCOSE [id number] 17:18:36 Test Item Value Reference Range Interpretation Comments POC-GLUCOSE METER 128 mg/dL 70-110 H : Notified RN/MD: TESTED ([facility]) (test code AT [facility] [address] = 1538) [place] [address]559[address]: Filer Finish/Techni faviola ID = [id number] for Thak erChenchoben POCT-GLUCOSE [id number] 12:27:16 Test Item Value Reference Range Interpretation Comments POC-GLUCOSE METER 141 mg/dL 70-110 H : TESTED A T [facility] 1317 ([facility]) (test code [facility], = 1538) [place] [address]: Filer Finish/Techni faviola ID = [id number] for Thak er, Nikitaben POCT-GLUCOSE [id number] 08:42:44 Test Item Value Reference Range Interpretation Comments POC-GLUCOSE METER 152 mg/dL 70-110 H : Notified RN/MD: TESTED (BEAKER) (test code AT [facility] [address] = 1538) [facility] [address]: Filer Finish/Techni faviola ID = [id number] for Sunita Alaniz BASIC METABOLIC [id number] 05:53:56 Test Item Value Reference Range Interpretation [...] not appl icable for dialysis patien ts Filer Finish ID - [id number] ID - EDNAVTIKN467Nxeamupd ID - NXNUERBEC024Kdauizbv ID - ZDHDWHNHK574Emrantzx ID - AWDUUDSXS376Cucxtugk ID - RKBBACRZL691Xbcmgltu ID - EGTHQIDEQ205Acrolaxj ID - QYZSCADKY222Zffsalrq ID - SATLYVOYC222Zrsjwzqd ID - IPDHWEUTM899Kudhhahw ID - PMEFAQHQO089Jszrjabl ID - NUOCGPQSJ882Luzhtsqd ID - EUVBJBYPU276UZRA-HJFCNSF [id number] 20:28:58 Test Item Value Reference Range Interpretation Comments POC-GLUCOSE METER 184 mg/dL 70-110 H : TESTED A T [facility] [address] (BEAKER) (test code [address], = 1538) [place] [address]: Filer Finish/Techni faviola ID = [id number] for Ina Agrawal POCT-GLUCOSE [id number] 15:57:54 Test Item Value Reference Range Interpretation Comments POC-GLUCOSE METER 187 mg/dL 70-110 H : TESTED A T [facility] [address] (BEAKER) (test code [address], = 1538) [place] [address]: Filer Finish/Techni faviola ID = [id number] for Ej vergara, Aileen POCT-GLUCOSE [id number] 11:57:54 Test Item Value Reference Range Interpretation Comments POC-GLUCOSE METER 163 mg/dL 70-110 H : TESTED A T [facility] [address] (BEAKER) (test code [address], = 1538) [place] [address]: Filer Finish/Techni faviola ID = [id number] for Ej vergara, Aileen POCT-GLUCOSE [id number] 07:59:00 Test Item Value Reference Range Interpretation Comments POC-GLUCOSE METER 129 mg/dL 70-110 H : TESTED A T [facility] [address] (BEAKER) (test code [address], = 1538) [place] [address]: Filer Finish/Techni faviola ID = [id number] for Ej vergara, Aileen POCT-GLUCOSE [id number] 20:24:24 Test Item Value Reference Range Interpretation Comments POC-GLUCOSE METER 185 mg/dL 70-110 H : TESTED A T [facility] [address] (BEAKER) (test code [address], = 1538) [place] [address]: Filer Finish/Techni faviola ID = [id number] for Agustin Patel POCT-GLUCOSE [id number] 18:05:34 Test Item Value Reference Range Interpretation Comments POC-GLUCOSE METER 126 mg/dL 70-110 H : TESTED A T [facility] 1317 (BEAKER) (test code DERREK VANG [facility], = 1538) [place] [address]: Filer Finish/Techni faviola ID = [id number] for Consuelo Leija POCT-GLUCOSE [id number] 12:43:19 Test Item Value Reference Range Interpretation Comments POC-GLUCOSE METER 154 mg/dL 70-110 H : TESTED A T [facility] 1317 (BEAKER) (test code DERREK VANG [facility], = 1538) [place] [address]: Filer Finish/Techni faviola ID = [id number] for Jhoan Leijali POCT-GLUCOSE [id number] 07:44:17 Test Item Value Reference Range Interpretation Comments POC-GLUCOSE METER 142 mg/dL 70-110 H : TESTED A T [facility] 1317 (BEAKER) (test code DERREK VANG [facility], = 1538) [place] [address]: Filer Finish/Techni faviola ID = [id number] for Jhoan Leijali BASIC METABOLIC [id number] 05:55:22 Test Item Value Reference Range Interpretation [...] not appl icable for dialysis patien ts Filer Finish ID - LITOOperator ID - LITOOperator ID - LITOOperator ID - LITOOperator ID - LITOOperator ID - LITOOperator ID - LITOOperator ID - LITOOperator ID - LITOOperator ID - LITOOperator ID - LITOOperator ID - LITOOperator ID - MARTÍN POCT-GLUCOSE [id number] 20:53:58 Test Item Value Reference Range Interpretation Comments POC-GLUCOSE METER 194 mg/dL 70-110 H : TESTED A T [facility] [address] (BEAKER) (test code [address], = 1538) [place] [address]: Filer Finish/Techni faviola ID = [id number] for Aileen Loja POCT-GLUCOSE [id number] 15:49:19 Test Item Value Reference Range Interpretation Comments POC-GLUCOSE METER 171 mg/dL 70-110 H : TESTED A T [facility] [address]17 (BEAKER) (test code [address], = 1538) [place] [address] 478: Filer Finish/Techni faviola ID = [id number] for Aileen Loja SARS-CoV2/RT-PCR (Asymptomatic ONLY)2022-01-14 15:42:35 Test Item Value Reference Interpretation Comments Range SARS-COV2/RT-PCR Negative Negative The SARS-Co V-2 (test code = target nucleic 76730-9) acids are not detected in thi s [...] rapid, real-quinn e RT-PCR test intended for e qualitative detection of nucleic acid fr [...] revoked sooner. Fact Sheet for Healthcare Providers: https://www.DearJane/Documents/Xp ert%20Xpress%20SAR S%20CoV-2/Fact%20S heets/302-3802%20S ARS-COV-2%20HEALTH CARE%20PROVIDERS%2 0FACT%20SHEET.pdf Fact Sheet for Healthcare Patients: https://www.DearJane/Documents/Xp ert%20Xpress%20SAR S%20CoV-2/Fact%20S heets/302-3801%20S ARS-COV-2%20PATIEN T%20FACT%20SHEET.p df Lab Interpretation Normal (test code = 95639-1) [facility]2022-01-14 15:42:35 Test Item Value Reference Interpretation Comments Range SARS-COV2/RT-PCR Negative Negative The SARS-Co V-2 (test code = target nucleic 09726-3) acids are not detected in thi s [...] revoked sooner. Fact Sheet for Healthcare Providers: https://www.DearJane/Documents/Xp ert%20Xpress%20SAR S%20CoV-2/Fact%20S heets/302-3802%20S ARS-COV-2%20HEALTH CARE%20PROVIDERS%2 0FACT%20SHEET.pdf Fact Sheet for Healthcare Patients: https://wwwKingland Companies/Documents/Xp ert%20Xpress%20SAR S%20CoV-2/Fact%20S heets/302-3801%20S ARS-COV-2%20PATIEN T%20FACT%20SHEET.p df Lab Interpretation Normal (test code = 32498-8) [facility]Asymptomatic ONLY[facility]2022-01-14 15:42:35 Test Item Value Reference Interpretation Comments Range SARS-COV2/RT-PCR Negative Negative The SARS-Co V-2 (test code = target nucleic 15399-9) acids are not detected in thi s [...] revoked sooner. Fact Sheet for Healthcare Providers: https://www.DearJane/Documents/Xp ert%20Xpress%20SAR S%20CoV-2/Fact%20S heets/302-3802%20S ARS-COV-2%20HEALTH CARE%20PROVIDERS%2 0FACT%20SHEET.pdf Fact Sheet for Healthcare Patients: https://www.DearJane/Documents/Xp ert%20Xpress%20SAR S%20CoV-2/Fact%20S heets/302-3801%20S ARS-COV-2%20PATIEN T%20FACT%20SHEET.p df Lab Interpretation Normal (test code = 36310-1) [facility])2022-01-14 15:42:35 Test Item Value Reference Range Interpretation Comments SARS-COV2/RT-PCR Negative Negative The SARS-Co V-2 target (test code = nucleic acids a re not 8374322) detected in thi s specimen. Negative result [...] revoked sooner. Fact Sheet for Healthcare Providers: https://www.[employer] m/Documents/Xpert%20Xpress%20SARS%20CoV-2/Fact%20Sheets/302-3802%66DDQO-CYY-7%20 HEALTHCARE%20PROVIDERS%20FACT%20SHEET.pdf Fact Sheet for Healthcare Patients: https://www.[employer]/Documents/Xpert%20Xp ress%20SARS%20CoV-2/Fact%20Sheets/302-3801%79QDXK-FIG-1%20PATIENT%20FACT%20SHEET .pdfRAD, CHEST, 1 VIEW, NON [id number] 15:02:00Reason for exam:- >SOBShould this be performed at the bedside?->Yes [facility] 1950 Sex: FFINAL REPORT [...] MDReport Verified Date/Time: 01/14/2022 15:02:16 Reading Location: [facility] Radiology Reading Room POCT-GLUCOSE [id number] 12:14:41 Test Item Value Reference Range Interpretation Comments POC-GLUCOSE METER 134 mg/dL 70-110 H : TESTED A T [facility] [address]17 (BEAKER) (test code [address], = 1538) [facility] [id number]: Filer Finish/Techni faviola ID = [id number] for Aileen Loja PREMA, CENTRAL VENOUS CATH PLCMT (JUG/FEM) > 3 Y.O. WITH [id number] 11:25:00Reason for exam:->Non tunneled central line placement [facility] : 1950 Sex: FFINAL REPORT INSERTION OF [...] minutes Radiationdose (Ka,r): 2 mGy Signed: Carl Linkeport Verified Date/Time: 01/14/2022 11:25:42 Reading Location: [facility] Radiology Reading Room POCT-GLUCOSE [id number] 08:34:59 Test Item Value Reference Range Interpretation Comments POC-GLUCOSE METER 147 mg/dL 70-110 H : TESTED A T [facility] 1317 (BEAKER) (test code [address], = 1538) [facility] 77 [phone]: Filer Finish/Techni faviola ID = [id number] for Aileen Loja BASIC METABOLIC [id number] 06:37:03 Test Item Value Reference Range Interpretation [...] not appl icable for dialysis patien ts Filer Finish ID - LITOOperator ID - LITOOperator ID [...] 0-0 (BEAKER) (test code = 413) POCT-GLUCOSE [id number] 19:50:36 Test Item Value Reference Range Interpretation Comments POC-GLUCOSE METER 199 mg/dL 70-110 H : TESTED A T [facility] [address] (BEAKER) (test code [address], = 1538) [facility] 77 478: Filer Finish/Techni faviola ID = [id number] for Will Ina lewis POCT-GLUCOSE [id number] 16:52:12 Test Item Value Reference Range Interpretation Comments POC-GLUCOSE METER 150 mg/dL 70-110 H : TESTED A T [address] (BEAKER) (test code [address], = 1538) [place] [address] 478: Filer Finish/Techni faviola ID = [id number] for Aileen Loja POCT-GLUCOSE [id number] 14:05:10 Test Item Value Reference Range Interpretation Comments POC-GLUCOSE METER 122 mg/dL 70-110 H : TESTED A T [address] (BEAKER) (test code [address], = 1538) [place] [address] 478: Filer Finish/Techni faviola ID = [id number] for Nancy Douglass Blood gas, [id number] 09:06:33 Test Item Value Reference Range Interpretation Comments pH, Arterial (test code 7.45 7.35-7.45 = 2744-1) pCO2, Arterial (test 40 See_Comment [Autom ated message] code = 2018-12) The system [employer] generated this result transmit kenneth reference range : 35 - 45 mm Hg. The reference range was not used to interpret this result as normal/abnormal . pO2, Arterial (test 79 See_Comment L [Automa kenneth message] code = 2703-7) The system [employer] generated this result transmit kenneth reference range [...] 21 Lab Interpretation Abnormal (test code = 28297-9) [facility] [id number] 09:06:33 Test Item Value Reference Range Interpretation Comments pH, Arterial (test code 7.45 7.35-7.45 = 2744-1) pCO2, Arterial (test 40 See_Comment [Autom ated message] code = 2018-12) The system [employer] generated this result transmit kenneth reference range : 35 - 45 mm Hg. The reference range was not used to interpret this result as normal/abnormal . pO2, Arterial (test 79 See_Comment L [Automa kenneth message] code = 2703-7) The system [employer] generated this result transmit kenneth reference range [...] 21 Lab Interpretation Abnormal (test code = 83965-7) [facility] [id number] 09:06:33 Test Item Value Reference Range Interpretation Comments pH, Arterial (test code 7.45 7.35-7.45 = 2744-1) pCO2, Arterial (test 40 See_Comment [Autom ated message] code = 2019-8) The system [employer] generated this result transmit kenneth reference range : 35 - 45 mm Hg. The reference range was not used to interpret this result as normal/abnormal . pO2, Arterial (test 79 See_Comment L [Automa kenneth message] code = 2703-7) The system [employer] generated this result transmit kenneth reference range [...] 21 Lab Interpretation Abnormal (test code = 71308-3) [facility] [id number] 09:06:33 Test Item Value Reference Range Interpretation [...] (BEAKER) (test code = 1819) 21.0 POCT-GLUCOSE [id number] 08:36:44 Test Item Value Reference Range Interpretation Comments POC-GLUCOSE METER 132 mg/dL 70-110 H : TESTED A T [address] (BEAKER) (test code [address], = 1538) [facility] 77 478: Filer Finish/Techni faviola ID = [id number] for Ej vergaraAileen TSH/FREE T4 IF [id number] 08:14:31 Test Item Value Reference Range Interpretation Comments THYROID STIMULATING HORMONE 1.790 uIU/mL 0.350-5.500 (BEAKER) (test code = 772) Filer Finish ID - DSENSONCOMPREHENSIVE METABOLIC [id number] 08:04:08 Test Item Value Reference Range Interpretation [...] = 354) CREATININE 3.50 mg/dL 0.50-1.20 H (LORENAAKER) (test code = 358) GLUCOSE RANDOM 136 [...] G3b Moderately to s everely 30-44 G4 Sever ly decreased 15-29 G5 Kidney failure <15Repo rted eGFR is based on the CKD-EPI 1 equation t hat does not use a race coefficientEsti mated GFR is not as accur ate as Creatinine Nilda tamayo in predicting glom erular filtration rate . Estimated GFR is not appl icable for dialysis patien ts Filer Finish ID - DSENSONOperator ID - DSENSONOperator ID - DSENSONOperator ID - DSENSONOperator ID - DSENSONOperator ID - DSENSONOperator ID - DSENSONOperator ID - DSENSONOperator ID - DSENSONOperator ID - DSENSONOperator ID - DSENSONOperator ID - DSENSONOperator ID - DSENSONOperator ID - DSENSONOperatorID - DSENSONOperator ID - DSENSONOperator ID - DSENSONOperator ID - DSENSONOperator ID - DSENSONTROPONIN [id number] 08:03:10 Test Item Value Reference Range Interpretation [...] failure, acidosis, acute neurological disease, and persistent tachyarrhythmia.Filer Finish ID - DSENSONCT, BRAIN, WITHOUT [id number] 07:49:00 [facility] 1950 Sex: FFINAL REPORT [...] recommended for further characterization. Signed: Suzi Askew MDReport Verified Date/Time: 01/13/2022 07:49:20 CBC W/PLT COUNT & AUTO [id number] 07:39:37 Test Item Value Reference Range Interpretation [...] PERCENT (BEAKER) (test code = 2801) POCT-GLUCOSE [id number] 07:15:45 Test Item Value Reference Range Interpretation Comments POC-GLUCOSE METER 127 mg/dL 70-110 H : TESTED A T [address] (BEAKER) (test code [address], = 1538) [place] [address] 478: Filer Finish/Techni faviola ID = [id number] for Aileen Loja POCT-GLUCOSE [id number] 06:32:48 Test Item Value Reference Range Interpretation Comments POC-GLUCOSE METER 133 mg/dL 70-110 H : TESTED A T [address] (BEAKER) (test code [address], = 1538) [place] [address] 478: Filer Finish/Techni faviola ID = [id number] for Mekhi bi, [place] POCT-GLUCOSE [id number] 21:05:05 Test Item Value Reference Range Interpretation Comments POC-GLUCOSE METER 195 mg/dL 70-110 H : TESTED A T [address] (BEAKER) (test code [address], = 1538) [place] [address] 478: Filer Finish/Techni faviola ID = [id number] for Mekhi bi, [place] POCT-GLUCOSE [id number] 19:32:35 Test Item Value Reference Range Interpretation Comments POC-GLUCOSE METER 180 mg/dL 70-110 H : TESTED A T [address] (BEAKER) (test code [address], = 1538) [place] [address] 478: Filer Finish/Techni faviola ID = [id number] for [place] ins, Odalys POCT-GLUCOSE [id number] 19:30:16 Test Item Value Reference Range Interpretation Comments POC-GLUCOSE METER 50 mg/dL 70-110 L : TESTED A T [address] (BEAKER) (test code = [address], 1538) [place] [address] 478: Filer Finish/Techni faviola ID = [id number] for [place] ins, Odalys POCT-GLUCOSE [id number] 18:09:32 Test Item Value Reference Range Interpretation Comments POC-GLUCOSE METER 63 mg/dL 70-110 L : TESTED A T [address] (BEAKER) (test code = [address], 1538) [place] [address] 478: Filer Finish/Techni faviola ID = [id number] for Will iams, Robe ANG, TUNNELED CATHETER [id number] 17:04:00Reason for exam:->dialysis catheter with poor flows on dialysis, very positional - please place tunneled dialysis catheter in a new position. [facility] 1950 Sex: FFINAL REPORT Tunneled dialysis catheter exchange, 01/12/2022. History: Renal failure, poor flow through the existing catheter. Modality: Sonography and fluoroscopy. Sedation: None. Travel Rn: Mitzy. Senior Automation Engineer: None. Approach: Internal jugular vein - right. [...] removed and a new 23 cm 15.5 Solomon Islander Duraflow 2 catheter was advanced through the [...] dialysis catheter using fluoroscopic guidance. Signed: Nick Dockery MDReport Verified Date/Time: 01/12/2022 17:04:33 Reading Location: [facility] Reading Room POCT-GLUCOSE [id number] 12:20:13 Test Item Value Reference Range Interpretation Comments POC-GLUCOSE METER 107 mg/dL 70-110 : TESTED A T [address] (BEAKER) (test code [address], = 1538) [place] [address] 478: Filer Finish/Techni fvaiola ID = [id number] for Will iams, Robe POCT-GLUCOSE [id number] 09:01:23 Test Item Value Reference Range Interpretation Comments POC-GLUCOSE METER 118 mg/dL 70-110 H : TESTED A T [address] (BEAKER) (test code [address], = 1538) [place] [address] 478: Filer Finish/Techni faviola ID = [id number] for Will iams, Robe CBC W/PLT COUNT & AUTO [id number] 06:58:41 Test Item Value Reference Range Interpretation [...] code = 1+ few 961) BASIC METABOLIC [id number] 06:30:57 Test Item Value Reference Range Interpretation [...] not appl icable for dialysis patien ts Filer Finish ID - LITOOperator ID - LITOOperator ID - LITOOperator ID - LITOOperator ID - LITOOperator ID - LITOOperator ID - LITOOperator ID - LITOOperator ID - LITOOperator ID - [id number] 06:19:11 Test Item Value Reference Range Interpretation Comments MAGNESIUM (BEAKER) (test code = 1.9 mg/dL 1.5-3.0 627) Filer Finish ID - LITOOperator ID - LITOOperator ID - LITOOperator ID - MARTÍN [id number] 06:16:11 Test Item Value Reference Range Interpretation Comments PHOSPHORUS (BEAKER) (test code = 3.4 mg/dL 2.5-4.5 604) Filer Finish ID - LITOPROTHROMBIN TIME/[id number] 06:03:04 Test Item Value Reference Range Interpretation Comments PROTIME (BEAKER) 12.4 seconds 9.3-12.0 H Final Infor mation (test code = 759) (Auto Outp ut) INR (BEAKER) (test 1.14 See_Comment Final Inf ormation code = 370) (Auto Output) [Automated mess age] The system [employer] generated this result transmitted ref erence range: <=5.90. The reference range was not used to int erpret this result as normal/abnormal . RECOMMENDED COUMADIN/WARFARIN INR THERAPY RANGESSTANDARD DOSE: 2.0 - 3.0 Includes: PROPHYLAXIS for venous thrombosis, systemic embolization; TREATMENT for venous thrombosis and/or pulmonary embolus.HIGH RISK: Target INR is 2.5-3.5 for patients with mechanical heart valves.[id number] 06:03:04 Test Item Value Reference Range Interpretation Comments PARTIAL THROMBOPLASTIN 29.5 seconds 23.0-35.0 Final Information TIME (BEAKER) (test (Auto Ou tput) code = 760) POCT-GLUCOSE [id number] 20:00:47 Test Item Value Reference Range Interpretation Comments POC-GLUCOSE METER 172 mg/dL 70-110 H : TESTED A T [address] (BEAKER) (test code [facility] NT [facility], = 1538) [place] [address]: Filer Finish/Techni faviola ID = [id number] for Will iams, Ina POCT-GLUCOSE [id number] 18:09:30 Test Item Value Reference Range Interpretation Comments POC-GLUCOSE METER 121 mg/dL 70-110 H : TESTED A T [address] (BEAKER) ([facility] = 1538[facility] [place] [address]: Filer Finish/Techni faviola ID = [id number] for Will iams, Robe POCT-GLUCOSE [id number] 12:48:21 Test Item Value Reference Range Interpretation Comments POC-GLUCOSE METER 102 mg/dL 70-110 : TESTED A T [address] (BEAKER) (test [facility], = 1538) [place] [address]: Filer Finish/Techni faviola ID = [id number] for Avelino h, Kerline POCT-GLUCOSE [id number] 08:00:17 Test Item Value Reference Range Interpretation Comments POC-GLUCOSE METER 119 mg/dL 70-110 H : TESTED A T [address] (BEAKER) (test code [facility] NT [facility], = 1538) [place] [address]: Filer Finish/Techni faviola ID = [id number] for Robe Agrawal POCT-GLUCOSE [id number] 21:28:11 Test Item Value Reference Range Interpretation Comments POC-GLUCOSE METER 227 mg/dL 70-110 H : TESTED A T [address] (BEAKER) (test code [address], = 1538) [facility] 77 478: Filer Finish/Techni faviola ID = [id number] for Libia Pop POCT-GLUCOSE [id number] 15:35:44 Test Item Value Reference Range Interpretation Comments POC-GLUCOSE METER 168 mg/dL 70-110 H : TESTED A T [address] (BEAKER) (test code [address], = 1538) [place] [address] 478: Filer Finish/Techni faviola ID = [id number] for Maribel Jimenez, REPL CVC/TUNNELED W/O [id number] 11:59:00 [facility] 1950 Sex: FFINAL REPORT [...] a permanent image was stored. Catheter size (Solomon Islander): 15.5Catheter flush: Heparin (100 units/mL) Cl osureThe [...] MDReport Verified Date/Time: 01/10/2022 11:59:48 Reading Location: [facility] Radiology Reading Room POCT-GLUCOSE [id number] 11:32:33 Test Item Value Reference Range Interpretation Comments POC-GLUCOSE METER 105 mg/dL 70-110 : TESTED A T [address] (BEAKER) (test code [address], = 1538) [facility] 77 478: Filer Finish/Techni faviola ID = [id number] for Maribel Jimenez BASIC METABOLIC [id number] 04:51:32 Test Item Value Reference Range Interpretation [...] not appl icable for dialysis patien ts Filer Finish ID - LITOOperator ID - LITOOperator ID - LITOOperator ID - LITOOperator ID - LITOOperator ID - LITOOperator ID - LITOOperator ID - LITOOperator ID - LITOOperator ID - [id number] 04:50:58 Test Item Value Reference Range Interpretation Comments MAGNESIUM (BEAKER) (test code = 2.0 mg/dL 1.5-3.0 627) Filer Finish ID - LITOOperator ID - LITOOperator ID - LITOOperator ID - MARTÍN [id number] 04:48:19 Test Item Value Reference Range Interpretation Comments PHOSPHORUS (BEAKER) (test code = 3.9 mg/dL 2.5-4.5 604) Filer Finish ID - [id number] 04:44:00 Test Item Value Reference Range Interpretation Comments PARTIAL THROMBOPLASTIN 51.7 seconds 23.0-35.0 H Final Information TIME (BEAKER) (test (Auto Ou tput) code = 760) CBC W/PLT COUNT & AUTO [id number] 04:24:30 Test Item Value Reference Range Interpretation [...] PERCENT (BEAKER) (test code = 2801) POCT-GLUCOSE [id number] 21:26:47 Test Item Value Reference Range Interpretation Comments POC-GLUCOSE METER 127 mg/dL 70-110 H : TESTED A T [address] (BEAKER) (test code [address], = 1538) [place] [address]: Filer Finish/Techni faviola ID = [id number] for [place] Pop [id number] 20:08:11 Test Item Value Reference Range Interpretation Comments PARTIAL THROMBOPLASTIN 41.3 seconds 23.0-35.0 H Final Information TIME (BEAKER) (test (Auto Ou tput) code = 760) POCT-GLUCOSE [id number] 17:14:06 Test Item Value Reference Range Interpretation Comments POC-GLUCOSE METER 154 mg/dL 70-110 H : TESTED A T [address] (BEAKER) (test code [address], = 1538) [place] [address]: Filer Finish/Techni faviola ID = [id number] for Aileen Loja POCT-GLUCOSE [id number] 11:55:38 Test Item Value Reference Range Interpretation Comments POC-GLUCOSE METER 153 mg/dL 70-110 H : TESTED A T [address] (BEAKER) (test code [address], = 1538) [place] 77 [address]: Filer Finish/Techni faviola ID = [id number] for Farshad Jimeneznice HEPATITIS B SURFACE [id number] 11:29:52 Test Item Value Reference Range Interpretation Comments HEPATITIS B SURFACE ANTIBODY 53.8 mIU/mL <8.0 H (BEAKER) (test code = 647) Filer Finish ID - [id number] 10:04:36 Test Item Value Reference Range Interpretation Comments PARTIAL THROMBOPLASTIN 36.3 seconds 23.0-35.0 H Final Information TIME (BEAKER) (test (Auto Ou tput) code = 760) POCT-GLUCOSE [id number] 07:31:03 Test Item Value Reference Range Interpretation Comments POC-GLUCOSE METER 111 mg/dL 70-110 H : TESTED A T [address] (BEAKER) (test code [address], = 1538) [facility] 77 478: Filer Finish/Techni faviola ID = [id number] for Farshad Jimeneznice [id number] 06:13:46 Test Item Value Reference Range Interpretation Comments MAGNESIUM (BEAKER) (test code = 1.8 mg/dL 1.5-3.0 627) Filer Finish ID - [id number] ID - [id number] ID - LJMSWQOYA010Karjizsx ID - [id number] METABOLIC [id number] 06:12:49 Test Item Value Reference Range Interpretation [...] not appl icable for dialysis patien ts Filer Finish ID - ZNWUWPMPV516Rddunfoy ID - MEXHZMUFR354Dwwoxvkb ID - MEXGMLZEK736Ohnzdqcc ID - NJXLIAZZJ411Qxdavbwr ID - LXEUTBFKU649Cxmrtbnc ID - VFHLKAXRP398Cihllers ID - LMHVSLOHE979Bmqdkico ID - IMDFQEGNI879Basdjzbj ID - IGPPARVLG420Ecklviiz ID - [id number] 06:10:51 Test Item Value Reference Range Interpretation Comments PHOSPHORUS (BEAKER) (test code = 3.0 mg/dL 2.5-4.5 604) Filer Finish ID - [id number] W/PLT COUNT & AUTO [id number] 05:49:35 Test Item Value Reference Range Interpretation [...] PERCENT (BEAKER) (test code = 2801) POCT-GLUCOSE [id number] 05:17:03 Test Item Value Reference Range Interpretation Comments POC-GLUCOSE METER 108 mg/dL 70-110 : TESTED A T [address] (BEAKER) (test code [facility] [address], = 1538) [facility] 77 478: Filer Finish/Techni faviola ID = [id number] for esperanza Abraham [id number] 01:14:37 Test Item Value Reference Range Interpretation Comments PARTIAL THROMBOPLASTIN 37.5 seconds 23.0-35.0 H Final Information TIME (BEAKER) (test (Auto Ou tput) code = 760) HEPATITIS B SURFACE [id number] 18:36:43 Test Item Value Reference Range Interpretation Comments HEPATITIS B SURFACE ANTIGEN (2) Nonreactive Nonreactive (BEAKER) (test code = 2585) Filer Finish ID - [id number] [id number] 17:00:29 Test Item Value Reference Range Interpretation Comments POC-GLUCOSE METER 131 mg/dL 70-110 H : TESTED A T [address] (BEAKER) (test code [address], = 1538) [place] [address]: Filer Finish/Techni faviola ID = [id number] for Bernie Dubois Migel [id number] 16:38:44 Test Item Value Reference Range Interpretation Comments PARTIAL THROMBOPLASTIN 42.5 seconds 23.0-35.0 H Final Information TIME (BEAKER) (test (Auto Ou tput) code = 760) POCT-GLUCOSE [id number] 12:29:39 Test Item Value Reference Range Interpretation Comments POC-GLUCOSE METER 168 mg/dL 70-110 H : TESTED A T [address] (BEAKER) (test code [address], = 1538) [place] [address]: Filer Finish/Techni faviola ID = [id number] for Bernie filomena Migel Dubois POCT-GLUCOSE [id number] 08:10:36 Test Item Value Reference Range Interpretation Comments POC-GLUCOSE METER 136 mg/dL 70-110 H : TESTED A T [address] (BEAKER) (test code [address], = 1538) [place] [address]: Filer Finish/Techni faviola ID = [id number] for Bernie DuboisMigel BASIC METABOLIC [id number] 06:18:43 Test Item Value Reference Range Interpretation [...] G3b Moderately to s everely 30-44 G4 Sever ly decreased 15-29 G5 Kidney failure <15Repo rted eGFR is based on the CKD-EPI 2021 equation t hat does not use a race coefficientEsti mated GFR is not as accur ate as Creatinine Nilda roni in predicting glom erular filtration rate . Estimated GFR is not appl icable for dialysis patien ts Filer Finish ID - LITOOperator ID - LITOOperator ID - LITOOperator ID - LITOOperator ID - LITOOperator ID - LITOOperator ID - LITOOperator ID - LITOOperator ID - LITOOperator ID - [id number] 06:17:29 Test Item Value Reference Range Interpretation Comments MAGNESIUM (BEAKER) (test code = 1.6 mg/dL 1.5-3.0 627) Filer Finish ID - LITOOperator ID - LITOOperator ID - LITOOperator ID - MARTÍN HEMOGLOBIN [id number] 06:16:10 Test Item Value Reference Range Interpretation Comments HEMOGLOBIN A1C (BEAKER) (test code = 8.5 % 4.3-6.1 H 368) Filer Finish ID - [id number] 06:14:08 Test Item Value Reference Range Interpretation Comments PHOSPHORUS (BEAKER) (test code = 5.0 mg/dL 2.5-4.5 H 604) Filer Finish ID - [id number] 05:59:43 Test Item Value Reference Range Interpretation Comments PARTIAL THROMBOPLASTIN 45.4 seconds 23.0-35.0 H Final Information TIME (BEAKER) (test (Auto Ou tput) code = 760) CBC W/PLT COUNT & AUTO [id number] 05:48:29 Test Item Value Reference Range Interpretation [...] H PERCENT (BEAKER) (test code = 2801) [id number] 21:22:07 Test Item Value Reference Range Interpretation Comments PARTIAL THROMBOPLASTIN 26.5 seconds 23.0-35.0 Final Information TIME (BEAKER) (test (Auto Ou tput) code = 760) POCT-GLUCOSE [id number] 21:12:37 Test Item Value Reference Range Interpretation Comments POC-GLUCOSE METER 136 mg/dL 70-110 H : TESTED A T [address] (BEAKER) (test code [address], = 1538) [facility] [place] [address]: Filer Finish/Techni faviola ID = [id number] for esperanza Abraham POC [id number] 16:00:00 Test Item Value Reference Range Interpretation Comments POC glucose (test code = 158 mg/dL 65-99 H Ope rator Name: [id number]) Bob tilley ID: [id number] Lab Interpretation (test Abnormal code = 29622-8) [facility] [id number] 15:05:25 Test Item Value Reference Range Interpretation Comments Case number (test code = [id number]) Surgical pathology See link below for report (test code = PDF Lab Report 0566) Result status (test code This is Final Report = [id number]) for [id number] [facility] 12 [id number] 12:23:18 Test Item Value Reference Range Interpretation [...] of 12-AUG-2021 06:02,-No significant change was found- [facility] ED Preliminary Interpretation - Not an [id number] 21:23:51 Test Item Value Reference Range Interpretation Comments VALERIANO (test code = VALERIANO) Marley Cronin NP-C 09/07/2021 9:29 [facility] ED Preliminary Interpretation - Not an OrderPerformed by: Marley Cronin NP-CAuthorized by: Trinidad Menard MD ECG reviewed by ED Physician in the absence of a 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: no Previous ECG: Previous ECG: UnavailableInterpretat ion: Interpretation: abnormal Rate: ECG rate: 80 ECG rate assessment: normal Rhythm: Rhythm: paced Pacing: Type of pacing: VentricularEctopy: Ectopy: none QRS: QRS axis: Normal QRS intervals: NormalConduction: Conduction: normal ST segments: ST segments: Normal Lab Interpretation Abnormal (test code = 90462-7) Shinto DgwuqbtiNBVG-JeA-6 (COVID-19) RNA [Presence] in Respiratory specimen by LANG with probe [id number] 13:39:12 Test Item Value Reference Range Interpretation Comments SARS-CoV-2 (COVID-19) RNA Not detected [Presence] in Respiratory specimen by LANG with probe detection (test code = 79768-8) Whether patient is employed in a Unknown healthcare setting (test code = 12426-2) Whether the patient has symptoms Unknown related to condition of interest (test code = 20332-6) Whether the patient was Unknown hospitalized for condition of interest (test code = 94096-1) Whether the patient was admitted Unknown to intensive care unit (ICU) for condition of interest (test code = 84436-8) Whether patient resides in a Unknown congregate care setting (test code = 79951-7) status (test code = Unknown 88206-1) Date and time of symptom onset Unknown (test code = 22250-2) [facility] myocardial [id number] 02:36:07 Test Item Value Reference Range Interpretation Comments Target HR (test code bpm = 1026104212) Resting HR (test BPM code = 0048134188) Resting BP (test 178/79 mmHg code = 8554695574) Percent HR (test 54.05 % code = 9245848457) Post Peak HR (test bpm code = 1988433147) Post Peak BP (test 161/77 mmHg code = 1645056353) Radiology Study observation (narrative) (test code = 26800-1) VALERIANO (test code = Study Quality: good. [...] left ventricle ejection fraction is mildly reduced. [facility] stress [id number] 22:06:40 Test Item Value Reference Range Interpretation Comments Resting BP (test code = 2948902950) Protocol Name (test LEXISCAN code = 5046163890) Time in Exercise 00:01:00 Phase (test code = 8282375230) Max Systolic BP (test code = 5817387385) Max Diastolic BP (test code = 3371104356) Max Heart Rate (test code = 6484436300) Max Predicted Heart Rate (test code = 2869297649) Test Indication (test code = 3707911840) Arrhy During Ex (test code = 9461649676) ECG Interp Before EX (test code = 6098356057) ECG Interp During Ex (test code = 1572709819) Ex Summary Comment (test code = 3604629450) Overall HR Response to Exercise (test code = 0068674053) Overall BP Response To Exercise (test code = 6788527708) Reason for Termination (test code = 3427217566) Stress Test Waveform interpreted in Impression (test code report associated with = 9701698862) image study. No interpretation is provided as part of this Stress ECG report.-Electronically Signed By Adam HOLLIDAY, [facility] ([id number]), legal editor Daysi Chapman ([id number]) on 08/02/2021 5:06:37 PM [facility]Trans[facility] Echocardi[facility] Complete, (w Contrast, Strain and 3D if needed)2021-08-01 17:44:46 Test Item Value Reference Range Interpretation Comments AoV Area, Vmax (test 2.41 cm2 code = 5066055067) AoV Area, VTI (test 2.36 cm2 code = 4289279382) AoV Mean PG (test mmHg code = 0707011940) AoV Peak PG (test mmHg code = 9449859868) AoV Vmax (test code 1.77 m/s = 9967572094) AoV VTI (test code = 0.30 m 8283046939) IVS,d (test code = 1.11 cm 9982154737) LV,d (test code = 5.57 cm 9864202363) LV EF,A2C (test code 44.91 % = 3954710267) LV EF,A4C (test code 42.43 % = 0788170009) LV EF,BP (test code 42.76 % = 1293603861) [place],d A2C (test 7.79 cm code = 8743373208) [place],d A4C (test 7.59 cm code = 6964322769) [place],s A2C (test 7.10 cm code = 1911542556) [place],s A4C (test 6.58 cm code = 6888587523) LV,s (test code = 4.42 cm 2478425133) LV SV,A2C (test code 59.18 % = 4414055537) LV SV,A4C (test code 64.42 % = 5273750091) LV Vol,d A2C (test 131.77 mL code = 3399342717) LV Vol,d A4C (test 151.81 ml code = 9149009743) LV Vol,d BP (test 142.79 ml code = 8964483315) LV Vol,s A2C (test 72.60 mL code = 4688475484) LV Vol,s A4C (test 87.39 ml code = 9035637097) LV Vol,s BP (test 81.72 nl code = 5943597848) LVOT Diam,S (test 2.08 cm code = 6447009852) LVOT Vmax (test code 1.16 m/s = 2181866375) LVOT VTI (test code 0.21 m = 4193595587) LVPWD,d (test code = 1.05 cm 4135038999) TR Vpeak (test code 2.66 mm/s = 1993454850) AR Press Half Time 504.65 ms (test code = 8749466167) TR pk grad (test mmHg code = 0606063530) MR Vmax (test code = 6.10 m/s 6675235293) MR peak grad (test mmHg code = 9536701218) E wave decelartion msec time (test code = 2386644164) MV Peak E Des (test 1.46 m/s code = 6595814806) LVOT stroke volume 0.71 cm3 (test code = 0368761552) AV LVOT peak mmHg gradient (test code = 6432689592) LV SYS VOL (test 88.60 ml code = 9510317672) LV THOMPSON VOL (test 151.60 ml code = 9160563704) LA area s A4C (test 35.87 cm2 code = 7407732116) LV SV Teich 2D (test 63.00 ml code = 2379666213) LVOT SI (test code = 38.28 ml/m2 0433189830) AoV Cusp sep (test code = 9661507068) AoV Vmn (test code = 2482424819) IVS s 2D (test code = 6651081351) AR slope (test code = 8558203935) Ar Vmax (test code = 4446033571) LA Ao Ratio Mmode (test code = 0120863106) LVOT Vmn (test code = 6478665180) Pt Size (test code = 7276400159) Pt Wt (test code = 3835909391) PV AT (test code = msec 8918123705) LVOT mean grad (test mmHg code = 9654791362) AR DT (test code = msec 4736923281) AR pk grad (test mmHg code = 4984364372) LVPW s PLAX (test 1.41 cm code = 6799135753) MV Decel slope (test 9.79 m/s2 code = 7590793478) LA Vol MOD A4C (test 124.31 ml code = 2287575521) Velocity Ratio 0.66 m/s (V1/V2) (test code = 4689) EF (test code = 41.56 % 7638144442) LVOT area (test code 3.40 cm2 = 8352138951) LVOT VTI (CM) (test 21.00 cm code = 5190552440) RA pressure (test mmHg code = 4658190833) LA Vol 4C (test code 124.00 ml = 8363684068) RVSP (test code = mmHg 8735820660) LA diam s (test code 5.50 cm = 4092444493) Aortic Root (test 2.63 cm code = 8232780575) MI End Thompson Grad (test code = 3235070810) MI End Diat Des (test code = 8034943940) AR maxPG (test code = 1008511058) D E excurs (test code = 1266453901) E f slope (test code = 8715700359) E prime lat (test code = 3531416621) E keaton sept (test code = 9122583324) PV acc T slope (test code = 5092822198) CONDE BP EF (test 43.00 % code = 6720832091) LA VOL 2C (test code 138.00 ml = 1623824992) VALERIANO (test code = The left ventricle [...] of aortic valve stenosis.PericardiumNo pericardial effusion seen. Shinto [id number]-5 (COVID-19) RNA [Presence] in Respiratory specimen by LANG with probe [id number] 23:11:03 Test Item Value Reference Range Interpretation Comments SARS-CoV-2 (COVID-19) RNA Not detected [Presence] in Respiratory specimen by LANG with probe detection (test code = 10652-9) Whether patient is employed in a Unknown healthcare setting (test code = 77914-2) Whether the patient has symptoms Unknown related to condition of interest (test code = 59374-8) Whether the patient was Unknown hospitalized for condition of interest (test code = 07030-1) Whether the patient was admitted Unknown to intensive care unit (ICU) for condition of interest (test code = 55080-8) Whether patient resides in a Unknown congregate care setting (test code = 02342-6) status (test code = Unknown 66432-1) Date and time of symptom onset Unknown (test code = 11874-6) [facility]-CoV-2 (COVID-19) RNA [Presence] in Respiratory specimen by LANG with probe [id number] 11:45:59 Test Item Value Reference Range Interpretation Comments SARS-CoV-2 (COVID-19) RNA Not detected Not-Detected [Presence] in Respiratory specimen by LANG with probe detection (test code = 95994-3) Whether patient is employed in a healthcare setting (test code = 40510-1) Whether the patient has symptoms related to condition of interest (test code = 73116-1) Patient was hospitalized because of this condition (test code = 74323-1) Whether the patient was admitted to intensive care unit (ICU) for condition of interest (test code = 46760-2) Whether patient resides in a congregate care setting (test code = 20375-0) [facility]-CoV-2 (COVID-19) RNA [Presence] in Respiratory specimen by LANG with probe [id number] 05:28:15 Test Item Value Reference Range Interpretation Comments SARS-CoV-2 (COVID-19) RNA Not detected Not-Detected [Presence] in Respiratory specimen by LANG with probe detection (test code = 22187-3) [facility]-CoV-2 (COVID-19) RNA [Presence] in Respiratory specimen by LANG with probe [id number] 23:52:31 Test Item Value Reference Range Interpretation Comments SARS-CoV-2 (COVID-19) RNA Not detected Not-Detected [Presence] in Respiratory specimen by LANG with probe detection (test code = 07299-3) [facility]
[2022-07-19 08:06] LABS: Absolute Lymphocytes (CBC) 1.7 K/uL (0.7-4.9); Hematocrit 26.3 % (36.0-45.0); Lymphocytes % 20.1 % (15.3-44.8); MCV 80.4 fL (80-100); MPV 7.1 fL (7.6-11.3); RBC Red Blood Cell Count 3.27 M/uL (3.86-4.86)
[2022-07-19 08:11] LABS: Protime INR 1.33
[2022-07-19] MEDS ORDERED: NA CHLORIDE 0.9% 250 ML ONE (08:15)
[2022-07-19 08:23] LABS: ALT/SGPT < 10 U/L (13-56); AST/SGOT 13 U/L (15-37); Albumin 2.5 g/dL (3.4-5.0); Alkaline Phosphatase 128 U/L (45-117); BUN Blood Urea Nitrogen 55 mg/dL (7-18); Bicarbonate 26 mmol/L (21-32); Bilirubin Total 0.4 mg/dL (0.2-1.0); Glomerular Filtration Rate 10 ml/min (=/>90); Glucose Level 148 mg/dL (74-106); Potassium 4.2 mmol/L (3.5-5.1); Protein, Total 7.5 g/dL (6.4-8.2); Sodium Level 133 mmol/L (136-145)
[2022-07-19 08:43] LABS: Urine Blood 1+ (Negative); Urine Glucose Negative (Negative); Urine Protein 3+ (Negative)
[2022-07-19 08:59] LABS: Urine Bacteria <20 /HPF (<20); Urine Mucus Slight /HPF (None Seen); Urine RBC <5 /HPF (None Seen); Urine WBC Clump Few /HPF (None Seen)
[2022-07-19 09:00] LABS: SARS-COV-2 RT PCR NEGATIVE (NEGATIVE)
--- NOTE | 2022-07-19 09:46 | ER ---
Nurse's Notes [facility] Name: Latricia Cadet Age: 71 yrs Sex: Female : 1950 Arrival Date: 07/19/2022 Time: 07:28 Bed 19 Private MD: Diagnosis: UTI/ Urinary tract infection, site not specified;Altered mental status, unspecified;Muscle weakness (generalized);End stage renal disease Presentation: 07/19 07:29 Chief complaint: EMS states: patient called EMS for generalized weakness, I was ok when ko1 I went to bed at about 730pm . I have a cough that is new. Coronavirus screen: At this time, the client does not indicate any symptoms associated with coronavirus-19. Ebola Screen: No symptoms or risks identified at this time. Initial Sepsis Screen: Does the patient meet any 2 criteria? No. Patient's initial sepsis screen is negative. Does the patient have a suspected source of infection? No. Patient's initial sepsis screen is negative. Risk Assessment: Do you want to hurt yourself or someone else? Patient reports no desire to harm self or others. Onset of symptoms was July 19, 2022. Transition of care: patient was not received from another setting of care. 07:29 Method Of Arrival: EMS: [facility] ko1 07:29 Acuity: JAKE 3 ko1 07:37 Care prior to arrival: Glucose check: 129. ko1 Triage Assessment: 07:33 General: Appears in no apparent distress. comfortable, ill, Behavior is cooperative, ko1 appropriate for age, flat. Pain: Complains of pain in generalized pain. Historical: - Home Meds: 07:33 apixaban 2.5 mg Oral tab 1 tab 2 times per day [Active]; carvedilol 25 mg Oral tab 1 ko1 tab 2 times per day [Active]; clonidine HCl 0.1 mg Oral Tb12 1 tab nightly [Active]; calcitriol 0.25 mcg Oral cap 1 cap once daily [Active]; digoxin 125 mcg (0.125 mg) Oral tab 1 tab Every other day [Active]; doxazosin 4 mg Oral tab 1 tab twice a day [Active]; bumetanide 1 mg Oral tab 1 tab once daily [Active]; furosemide 80 mg Oral tab 1 tab 2 times per day [Active]; escitalopram oxalate 10 mg Oral tab 1 tab once daily [Active]; isosorbide mononitrate 30 mg Oral Tb24 1 tab once daily [Active]; Lantus U-100 Insulin 100 unit/mL Sub-Q crtg 15 unit every morning [Active]; metoprolol tartrate 100 mg Oral tab 1 tab 2 times per day [Active]; Ozempic 0.25 mg or 0.5 mg(2 mg/1.5 mL) subcutaneous pnij 0.5 mg once wkly [Active]; hydralazine 100 mg Oral tab 1 tab 2 times per day [Active]; sevelamer HCl 800 mg Oral tab 2 tabs 3 times per day [Active]; pantoprazole Oral [Active]; budesonide 3 mg Oral CECX 3 caps once daily [Active]; pramipexole 1 mg Oral tab 1 tab daily [Active]; trazodone 100 mg Oral tab 1 tab nightly [Active]; sucroferric oxyhydroxide 500 mg Oral chew 1 tab 3 times per day [Active]; Tresiba U-100 Insulin 100 unit/mL subcutaneous soln 100 unit nightly [Active]; - PMHx: 07:33 angina pectoris; CHF; COPD; Diabetes - NIDDM; Hypertension; kidney disease; Rheumatoid ko1 Arthritis; Sleep Apnea; heart attack; insomnia; - PSHx: 07:33 HD Fistula - Right arm; pacemaker; hysterectomy; ko1 - Immunization history:: Adult Immunizations up to date. - Social history:: Smoking status: Patient denies any tobacco usage or history of. - Family history:: not pertinent. - Hospitalizations: : No recent hospitalization is reported. Screenin:52 [facility] ED Fall Risk Assessment (Adult) History of falling in the last 3 months, ko1 including since admission No falls in past 3 months (0 pts) Confusion or Disorientation No (0 pts) Intoxicated or Sedated No (0 pts) Impaired Gait Yes (1 pt) Mobility Assist Device Used Yes (1 pt) Altered Elimination Yes (1 pt) Score/Fall Risk Level 3 or more points = High Risk Oriented to surroundings, Maintained a safe environment, Educated pt \T\ family on fall prevention, incl call for assistance when getting out of bed, Assessed \T\ reinforced patient's understanding of fall precautions, Provided non-skid footwear, Hourly rounding (assess needs \T\ fall precautionary measures) done, Used ambulatory aids as needed (educated on \T\ assisted with), Used gait belt as appropriate Implemented a Fall Risk Plan of Care, Apply high fall risk patient identification: yellow non skid footwear/ fall signage, Placed fall mat w/ non beveled edge next to bed, Activated bed/chair alarm, Remained w/in arm's length of patient and in sight while toileting, Offered frequent toileting (1:1 observation), Remained with patient while ambulating, Utilized family, sitter, or virtual senior compensation consultant as indicated. Abuse screen: Denies threats or abuse. Denies injuries from another. Nutritional screening: No deficits noted. Tuberculosis screening: No symptoms or risk factors identified. Assessment: 07:52 General: Appears ill. Pain: Complains of pain in generalized. Neuro: Reports weakness ko1 generalized. Cardiovascular: Rhythm is Dialysis shunt: in the right bicep, with palpable thrill, with auscultated bruit. Respiratory: Reports cough that is dry, sats are occasionally down in the high 80's to low 90's. GI: No deficits noted. : Reports hemodialysis every day this week due to excess fluid. Normally she is a 3xweek. EENT: No deficits noted. Derm: Skin left 3rd finger with black tip. Musculoskeletal: Reports weakness in generalized. 19:00 Reassessment: REPORT RECEIVED FROM KODY PETE. PT IS NOT CURRENTLY IN ROOM. PT OFF jj7 UNIT FOR DIALYSIS. Vital Signs: 07:29 BP 116 / 44; Pulse 82; Resp 16; Temp 98.4(O); Pulse Ox 95% on R/A; ko1 08:04 BP 114 / 59; Pulse 87; Resp 18; Pulse Ox 94% on 2 lpm NC; ko1 ED Course: 07:28 Patient arrived in ED. rn 07:28 Nicho Ellison MD is Attending Physician. rn 07:29 Aline Ibarra, JUAN R is Primary Nurse. ko1 07:33 Triage completed. ko1 07:33 Arm band placed on right wrist. ko1 07:37 pt daughter in law......[phone]. bd 07:45 Inserted saline lock: 20 gauge in left antecubital area, using aseptic technique. Blood ko1 collected. 07:45 Oxygen administration via nasal cannula \T\ 2L/min Response to oxygen therapy: symptoms ko1 improved. 07:48 Blood Culture Adult (2) Sent. ko1 07:48 CBC with Diff Sent. ko1 07:48 CMP Sent. ko1 07:48 Lactate w/ 2H reflex if indic. Sent. ko1 07:48 Protime (+inr) Sent. ko1 07:48 Ptt, Activated Sent. ko1 07:48 COVID-19/FLU A+B Sent. ko1 07:52 Patient has correct armband on for positive identification. Fall risk band placed. ko1 Placed in gown. Bed in low position. Call light in reach. Side rails up X2. Client placed on continuous cardiac and pulse oximetry monitoring. NIBP monitoring applied. school bus monitor on. Door closed. Warm blanket given. Pillow given. 08:24 Straight cath inserted, using sterile technique, 16 Fr. Patient tolerated well. ss 09:45 Anthony White MD is Hospitalizing Provider. rn 09:56 Chest Single View XRAY In Process Unspecified. EDMS 09:56 CT In Process Unspecified. EDMS Administered Medications: 08:12 Drug: NS 0.9% 250 ml Route: IV; Rate: bolus; Site: left antecubital; ko1 09:55 Drug: Rocephin (cefTRIAXone) 1 grams Route: IV; Rate: calculated rate; Site: left ko1 antecubital; Outcome: 09:45 Decision to Hospitalize by Provider. rn 21:09 Admitted to Med/surg room 206, Other PT MOVED FROM DIALYSIS STRAIGHT TO ROOM. PT NOT jj7 SEEN BY THIS NURSE 21:10 Patient left the ED. jj7 Signatures: Dispatcher [employer] EDMS Fauzia Hernandez Roman, MD MD rn Smirch, Shelby, RN RN ss Aline Ibarra RN RN ko1 Gaviota Garcia RN RN jj7
--- NOTE | 2022-07-19 09:46 | EDPHYS ---
Physician Documentation [facility] Name: Latricia Cadet Age: 71 yrs Sex: Female : 1950 Arrival Date: 07/19/2022 Time: 07:28 Bed 19 Private MD: ED Physician Nicho Ellison HPI: 07/19 07:31 This 71 yrs old Female presents to ER via Unassigned with complaints of generalized rn weakness. 07:31 Pt reports generalized weakness that began this AM, went to bed last night around 1930, rn was feeling ok, woke up this AM to use bathroom and couldn't get out of bed. No focal weakness. No numbness. ESRD patient with last dialysis yesterday. NO trauma or fall. Reports new cough but denies sob.. Onset: The symptoms/episode began/occurred this morning. Severity of symptoms: At their worst the symptoms were moderate in the emergency department the symptoms are unchanged. The patient has not experienced similar symptoms in the past. The patient has not recently seen a physician. Historical: - Home Meds: 07:33 apixaban 2.5 mg Oral tab 1 tab 2 times per day [Active]; carvedilol 25 mg Oral tab 1 ko1 tab 2 times per day [Active]; clonidine HCl 0.1 mg Oral Tb12 1 tab nightly [Active]; calcitriol 0.25 mcg Oral cap 1 cap once daily [Active]; digoxin 125 mcg (0.125 mg) Oral tab 1 tab Every other day [Active]; doxazosin 4 mg Oral tab 1 tab twice a day [Active]; bumetanide 1 mg Oral tab 1 tab once daily [Active]; furosemide 80 mg Oral tab 1 tab 2 times per day [Active]; escitalopram oxalate 10 mg Oral tab 1 tab once daily [Active]; isosorbide mononitrate 30 mg Oral Tb24 1 tab once daily [Active]; Lantus U-100 Insulin 100 unit/mL Sub-Q crtg 15 unit every morning [Active]; metoprolol tartrate 100 mg Oral tab 1 tab 2 times per day [Active]; Ozempic 0.25 mg or 0.5 mg(2 mg/1.5 mL) subcutaneous pnij 0.5 mg once wkly [Active]; hydralazine 100 mg Oral tab 1 tab 2 times per day [Active]; sevelamer HCl 800 mg Oral tab 2 tabs 3 times per day [Active]; pantoprazole Oral [Active]; budesonide 3 mg Oral CECX 3 caps once daily [Active]; pramipexole 1 mg Oral tab 1 tab daily [Active]; trazodone 100 mg Oral tab 1 tab nightly [Active]; sucroferric oxyhydroxide 500 mg Oral chew 1 tab 3 times per day [Active]; Tresiba U-100 Insulin 100 unit/mL subcutaneous soln 100 unit nightly [Active]; - PMHx: 07:33 angina pectoris; CHF; COPD; Diabetes - NIDDM; Hypertension; kidney disease; Rheumatoid ko1 Arthritis; Sleep Apnea; heart attack; insomnia; - PSHx: 07:33 HD Fistula - Right arm; pacemaker; hysterectomy; ko1 - Immunization history:: Adult Immunizations up to date. - Social history:: Smoking status: Patient denies any tobacco usage or history of. - Family history:: not pertinent. - Hospitalizations: : No recent hospitalization is reported. ROS: 07:31 Constitutional: Negative for fever, chills, and weight loss, Eyes: Negative for injury, rn pain, redness, and discharge, Neck: Negative for injury, pain, and swelling, Cardiovascular: Negative for chest pain, palpitations, and edema, Respiratory: + cough, neg for sob Abdomen/GI: Negative for abdominal pain, nausea, vomiting, diarrhea, and constipation, Back: Negative for injury and pain, MS/Extremity: Negative for injury and deformity, Skin: Negative for injury, rash, and discoloration, Neuro: Negative for headache, numbness, tingling, and seizure. Exam: 07:31 Constitutional: This is a well developed, well nourished patient who is awake, alert, rn and in no acute distress. Head/Face: Normocephalic, atraumatic. ENT: dry MM Cardiovascular: Regular rate and rhythm. No pulse deficits. Respiratory: No increased work of breathing, no retractions or nasal flaring. Abdomen/GI: Soft, non-tender Skin: Warm, dry MS/ Extremity: Pulses equal, no cyanosis. Neuro: Awake and alert, GCS 15, oriented to person, place, and situation. Cranial nerves II-XII grossly intact. Motor strength 3+/5 in all extremities. Sensory grossly intact. 08:49 ECG was reviewed by the Attending Physician. rn Vital Signs: 07:29 BP 116 / 44; Pulse 82; Resp 16; Temp 98.4(O); Pulse Ox 95% on R/A; ko1 08:04 BP 114 / 59; Pulse 87; Resp 18; Pulse Ox 94% on 2 lpm NC; ko1 MDM: 07:28 Patient medically screened. rn 09:42 Differential Diagnosis sepsis, flu, COVID, UTI, CVA, electrolyte disorder. Data rn reviewed: vital signs, nurses notes, lab test result(s), EKG, radiologic studies, CT scan, plain films, and as a result, I will admit patient. Consideration of Admission/Observation Patient was admitted/placed on observation. Escalation of care including admission/observation considered. Management of patient was discussed with the following: Hospitalist: Management and case discussed with hospitalist. I considered the following discharge prescriptions or medication management in the emergency department Medications were administered in the Emergency Department. See MAR. Independent interpretation of the following test(s) in the Emergency Department EKG: See my EKG interpretation above X-Ray: My interpretation is CXR images neg for pneumothorax or focal infiltrate. Historians other than the Patient: EMS: . Counseling: I had a detailed discussion with the patient and/or guardian regarding: the historical points, exam findings, and any diagnostic results supporting the discharge/admit diagnosis, lab results, radiology results, the need for further work-up and treatment in the hospital. Response to treatment: the patient's symptoms have mildly improved after treatment, and as a result, I will admit patient. 07/19 07:29 Order name: Blood Culture Adult (2) rn 07/19 07:29 Order name: CBC with Diff; Complete Time: 08:52 rn 07/19 07:29 Order name: CMP; Complete Time: 08:52 rn 07/19 07:29 Order name: Lactate w/ 2H reflex if indic.; Complete Time: 08:52 rn 07/19 07:29 Order name: Protime (+inr); Complete Time: 08:52 rn 07/19 07:29 Order name: Ptt, Activated; Complete Time: 08:52 rn 07/19 07:29 Order name: Urine Culture rn 07/19 07:29 Order name: Urine Microscopic Only; Complete Time: 09:10 rn 07/19 07:29 Order name: Chest Single View XRAY rn 07/19 07:29 Order name: EKG; Complete Time: 07:30 rn 07/19 07:29 Order name: Accucheck; Complete Time: 07:39 rn 07/19 07:29 Order name: Cardiac monitoring; Complete Time: 07:39 rn 07/19 07:29 Order name: EKG - Nurse/Tech; Complete Time: 07:39 rn 07/19 07:29 Order name: IV Saline Lock - Large Bore; Complete Time: 07:48 rn 07/19 07:29 Order name: Labs collected and sent; Complete Time: 07:48 rn 07/19 07:29 Order name: O2 Per Protocol; Complete Time: 07:39 rn 07/19 07:29 Order name: O2 Sat Monitoring; Complete Time: 07:39 rn 07/19 07:29 Order name: Urine Dipstick-Ancillary (obtain specimen); Complete Time: 08:58 rn 07/19 07:29 Order name: Vital Signs; Complete Time: 07:39 rn 07/19 07:29 Order name: COVID-19/FLU A+B; Complete Time: 09:10 rn 07/19 08:43 Order name: Urine Dipstick-Ancillary; Complete Time: 08:52 EDMS 07/19 08:52 Order name: CT Head Brain wo Cont rn 07/19 09:55 Order name: CT EDMS 07/19 12:55 Order name: Magnesium EDMS 07/19 12:55 Order name: Phosphorus EDMS 07/19 12:55 Order name: Urinalysis EDMS 07/19 12:55 Order name: Basic Metabolic Panel EDMS 07/19 12:55 Order name: Basic Metabolic Panel EDMS 07/19 12:55 Order name: CBC with Automated Diff EDMS 07/19 12:55 Order name: CBC with Automated Diff EDMS 07/19 12:55 Order name: NT PRO-BNP EDMS 07/19 12:55 Order name: NT PRO-BNP EDMS 07/19 12:56 Order name: Renal EDMS 07/19 15:24 Order name: Glucose, Ancillary Testing EDMS EC:49 Rate is 93 beats/min. Rhythm is regular. Left axis deviation noted. QRS is positive in rn lead I and negative in lead aVF. KS interval is normal. QRS interval is prolonged at 140 msec. QT interval is normal. No Q waves. T waves are Normal. No ST changes noted. Interpreted by me. Reviewed by me. Administered Medications: 08:12 Drug: NS 0.9% 250 ml Route: IV; Rate: bolus; Site: left antecubital; ko1 09:55 Drug: Rocephin (cefTRIAXone) 1 grams Route: IV; Rate: calculated rate; Site: left ko1 antecubital; Disposition Summary: 07/19/22 09:45 Hospitalization Ordered Hospitalization Status: Inpatient Admission rn Provider: Anthony White rn Condition: Stable rn Problem: new rn Symptoms: are unchanged rn Bed/Room Type: Standard rn Location: Telemetry/MedSurg (Inpatient)(07/19/22 19:01) bd Room Assignment: [facility](07/19/22 19:01) Diagnosis - UTI/ Urinary tract infection, site not specified rn - Altered mental status, unspecified rn - Muscle weakness (generalized) rn - End stage renal disease rn Forms: - Medication Reconciliation Form rn - SBAR form rn Signatures: Dispatcher [employer] EDFauzia Montilla bd Nicho Ellison MD MD rn Smirch, Shelby, RN RN ss Aline Ibarra RN RN ko1 Corrections: (The following items were deleted from the chart) 17:56 09:45 Telemetry/MedSurg (Inpatient) rn ss 17:56 09:45 rn ss 19:01 17:56 [facility] ER HOLD ss bd 19:01 17:56 ERHOLD- ss bd
--- NOTE | 2022-07-19 09:55 | RAD REPORT ---
EXAM DESCRIPTION: CT - Head Brain Wo Cont - 07/19/2022 9:10 am CLINICAL HISTORY: WEAKNESS COMPARISON: Head Brain Wo Cont dated 01/06/2022 TECHNIQUE: Noncontrast head CT images ad were obtained without IV contrast. Multiplanar reformats we re generated and reviewed. All CT scans are performed using dose optimization technique as appropriate and may include automated exposure control or mA/KV adjustment according to patient size. FINDINGS: No intracranial hemorrhage, mass, or edema. Midline structures are unremarkable. Normal ventricular caliber for age. Mild diffuse parenchymal volume loss. Kang-white matter differentiation is preserved, without evidence of acute infarct. No abnormal extra- axial fluid collections. Patchy subcortical and periventricular white matter hypoattenuation, nonspecific, but could reflect c hronic small vessel ischemic changes. The pattern is stable. Mastoid air cells and visualized portions of the paranasal sinuses are clear. No acute bony findings. IMPRESSION: No evidence of an acute intracranial process. Stable chronic findings as above.
[2022-07-19] MEDS ORDERED: CEFTRIAXONE 1000 MG/VIAL ONE (09:57)
--- NOTE | 2022-07-19 10:37 | RAD REPORT ---
[facility] CLINICAL HISTORY: COUGH COMPARISON: Chest Single View dated 06/08/2022; Chest Single View dated 05/02/2022; Chest Single View dated 01/01/2022; Chest Single View dated 12/04/2021 TECHNIQUE: Portable AP view of the chest. FINDINGS: The lungs are clear. No pneumothorax or effusion. Stable cardiomegaly. Left chest wall tri ple lead pacer/ AICD in place. Mediastinal contours are unremarkable. IMPRESSION: No acute pulmonary process. Stable cardiomegaly.
[2022-07-19] MEDS ORDERED: ACETAMINOPHEN 325 MG TABLET PO PRN (12:46)
[2022-07-19] MEDS ORDERED: ONDANSETRON 4 MG/2 ML VIAL IV PRN (12:48)
--- NOTE | 2022-07-19 12:49 | EKG ---
Test Date: 2022-07-19 Test Time: 07:48:09 Book Cleaner: TALISHA Belcher MEASUREMENT RESULTS: Intervals: Rate: 93 OR: QRSD: 140 QT: 452 QTc: 561 [place]: P: OR: QRS: -65 T: 87 INTERPRETIVE STATEMENTS: Sinus rhythm with PVCs Left axis deviation Nonspecific intraventricular block Inferior infarct, age undetermined Anterolateral infarct, age undetermined Abnormal ECG Compared to ECG 01/01/2022 11:37:26 Uncertain supraventricular rhythm no longer present Myocardial infarct finding still present Electronically Signed On 07-19-22 12:48:40 MACHINE II COREMAKER by Lico Wilkins
[2022-07-19] MEDS ORDERED: GLUCAGON 1 MG/VIAL IM PRN (12:55)
[2022-07-19] MEDS ORDERED: D50W 25 GM/50 ML SYRINGE IV PRN (12:55)
--- NOTE | 2022-07-19 13:00 | P.HP ---
Certification for Inpatient Patient admitted to: Inpatient With expected LOS: >2 Midnights Patient will require the following post-hospital care: None Practitioner: I am a practitioner with admitting privileges, knowledge of patient current condition, hospital course, and medical plan of care. Services: Services provided to patient in accordance with Admission requirements found in Title 42 Section 412.3 of the Code of Federal Regulations Patient History Date of Service: 07/19/22 Reason for admission: Generalized weakness and fatigue. History of Present Illness: Patient is a 71-year-old female with a past medical history significant for DM 2, rheumatoid arthritis, hypertension, hyperlipidemia, ESRD who presents with complaint of generalized weakness and malaise onset yesterday. Patient has not been compliant with her dialysis schedule. Patient had dialysis in the 3 days ago and yesterday. Patient reported associated signs and symptoms of nausea. Patient denies any other signs and symptoms. Symptoms are aggravated or relieved by nothing. Patient reported that when he woke up this morning he could not get out of bed due to weakness. Patient decided to present to the hospital due to worsening symptoms. Allergies No Known Allergies Allergy (Verified 01/02/22 02:33) Home Medications: Furosemide [Lasix] 80 mg PO DAILY 04/14/20 Isosorbide Mononitrate [Isosorbide Mononitrate ER] 60 mg PO DAILY 04/14/20 Pramipexole [Mirapex*] 1 mg PO BEDTIME 04/14/20 Escitalopram [Lexapro*] 10 mg PO BEDTIME 11/27/21 Pantoprazole [Protonix Tab*] 40 mg PO DAILY 11/27/21 Doxazosin Mesylate 4 mg PO DAILY 01/02/22 Sevelamer Carbonate [Renvela*] 2 tab PO TIDWM 01/02/22 Rivastigmine Tartrate [Rivastigmine] 1 cap PO BID 05/03/22 Apixaban [Eliquis *] 2.5 mg PO BID #30 tab 05/08/22 Ertapenem Na [Invanz] 1 gm IVPB DAILY #5 ml 05/08/22 Heparin [Heparin 1,000 units/mL *] 4,000 unit IV EVERY HD PRN vial 05/08/22 Heparin [Heparin 1,000 units/mL *] 6,000 unit IV EVERY HD PRN vial 05/08/22 - Past Medical/Surgical History Diabetic: Yes -: Diabetes mellitus type 2-insulin dependent -: Rheumatoid arthritis -: Hypertension -: Hyperlipidemia -: Chronic congestive heart failure-unknown EF -: ESRD on HD -: CAD -: L ankle fusion -: hysterectomy -: Dialysis catheter placement and removal -: Cholecystectomy Psychosocial/ Personal History: Patient lives with her - Social History Smoking Status: Never smoker Alcohol use: No CD- Drugs: No Caffeine use: No Place of Residence: Home Review of Systems General: Weakness, Malaise Eyes: Unremarkable ENT: Unremarkable Respiratory: Unremarkable Cardiovascular: Unremarkable Gastrointestinal: Nausea Genitourinary: Unremarkable Musculoskeletal: Unremarkable Integumentary: Unremarkable Neurological: Unremarkable Lymphatics: Unremarkable Physical Examination - Physical Exam General: Alert, In no apparent distress, Oriented x3, Cooperative HEENT: Atraumatic, PERRLA, Mucous membr. moist/pink, EOMI, Sclerae nonicteric Neck: Supple, 2+ carotid pulse no bruit, No LAD, Without JVD or thyroid abnormality Respiratory: Clear to auscultation bilaterally, Normal air movement Cardiovascular: Regular rate/rhythm, Normal S1 S2 Capillary refill: <2 Seconds Gastrointestinal: Normal bowel sounds, No tenderness Musculoskeletal: No tenderness Integumentary: No rashes Neurological: Normal speech, Normal tone, Normal affect Lymphatics: No axilla or inguinal lymphadenopathy - Studies Laboratory Data (last 24 hrs) 07/19/22 07:39: PT 14.6 H, INR 1.33, APTT 33.7 07/19/22 07:39: Sodium 133 L, Potassium 4.2, BUN 55 H, Creatinine 4.60 H, Glucose 148 H, Total Bilirubin 0.4, AST 13 L, ALT < 10 L, Alkaline Phosphatase 128 H 07/19/22 07:39: WBC 8.70, Hgb 8.6 L, Hct 26.3 L, Plt Count 504 H Assessment and Plan - Plan -- UTI POA. Continue antibiotics. Urine cultures pending. --ESRD. Nephrology consulted. Further management per product development actuary. --DM2. BS monitoring with sliding scale insulin. --Hypertension. Stable. Continue home medications. --Generalized weakness. PT eval and treat. Continue supportive care. --Rheumatoid arthritis. We will manage pain with current pain medication regimen. --GERD. Continue Protonix. --Hyperlipidemia. Continue statin. --DVT prophylaxis with Heparin subQ . Discharge Plan: Home Plan to discharge in: Greater than 2 days - Advance Directives Does patient have a Living Will: No Does patient have a Durable POA for Healthcare: No - Code Status/Comfort Care Code Status Assessed: Yes Physician Review: Patient Assessed, Agree with Above Assessment and Plan Critical Care: No
[2022-07-19] MEDS ORDERED: D10W 125 ML IV PRN (13:05)
--- NOTE | 2022-07-19 13:18 | P.CNS ---
History of Present Illness: Pt is a 71 y/o female with past medical hx of hypertension presenting with complaints of suddne onset generalized weakness that started yesterday. Pt reports progressively getting worse and therefore presented. Pt was fouNd to have a UTI on evaluation in the ED. Renal has been consulted for management of hemodialysis. Allergies No Known Allergies Allergy (Verified 01/02/22 02:33) Home Medications: Furosemide [Lasix] 80 mg PO DAILY 04/14/20 Isosorbide Mononitrate [Isosorbide Mononitrate ER] 60 mg PO DAILY 04/14/20 Pramipexole [Mirapex*] 1 mg PO BEDTIME 04/14/20 Escitalopram [Lexapro*] 10 mg PO BEDTIME 11/27/21 Pantoprazole [Protonix Tab*] 40 mg PO DAILY 11/27/21 Doxazosin Mesylate 4 mg PO DAILY 01/02/22 Sevelamer Carbonate [Renvela*] 2 tab PO TIDWM 01/02/22 Rivastigmine Tartrate [Rivastigmine] 1 cap PO BID 05/03/22 Apixaban [Eliquis *] 2.5 mg PO BID #30 tab 05/08/22 Ertapenem Na [Invanz] 1 gm IVPB DAILY #5 ml 05/08/22 Heparin [Heparin 1,000 units/mL *] 4,000 unit IV EVERY HD PRN vial 05/08/22 Heparin [Heparin 1,000 units/mL *] 6,000 unit IV EVERY HD PRN vial 05/08/22 - Past Medical/Surgical History Diabetic: Yes -: Diabetes mellitus type 2-insulin dependent -: Rheumatoid arthritis -: Hypertension -: Hyperlipidemia -: Chronic congestive heart failure-unknown EF -: ESRD on HD -: CAD -: L ankle fusion -: hysterectomy -: Dialysis catheter placement and removal -: Cholecystectomy Psychosocial/ Personal History: Patient lives with her - Social History Smoking Status: Unknown if ever smoked Alcohol use: No CD- Drugs: No Caffeine use: No Physical Examination 07/19/22 08:41: Urine pH 6.0, Ur Specific [place] 1.020, Glucose (UA)(Auto) Negative, Urine Ketones Negative, Urine Blood 1+ H, Urine Nitrite Negative, Ur Leukocyte Esterase 2+ H, Urine Total Protein 3+ H 07/19/22 08:39: Urine RBC <5, Urine WBC >50 H, Urine WBC Clumps Few H, Ur Squamous Epith Cells <5, U Non-Squamous Epi Cells <5, Urine Bacteria <20, Urine Mucus Slight, Urine Culture Reflexed Reflexed 07/19/22 07:39: Influenza Type A RNA Negative, Influenza Type B RNA Negative, SARS-CoV-2 RNA (RT-PCR) Negative 07/19/22 07:39: PT 14.6 H, INR 1.33, APTT 33.7 07/19/22 07:39: Lactic Acid 1.4 07/19/22 07:39: Sodium 133 L, Potassium 4.2, Chloride 102, Carbon Dioxide 26, Anion Gap 9.2, BUN 55 H, Creatinine 4.60 H, Est GFR (CKD-EPI) 10 L, Glucose 148 H, Calcium 9.1, Total Bilirubin 0.4, AST 13 L, ALT < 10 L, Alkaline Phosphatase 128 H, Serum Total Protein 7.5, Albumin 2.5 L, Globulin 5.0 H, Albumin/Globulin Ratio 0.5 L 07/19/22 07:39: WBC 8.70, RBC 3.27 L, Hgb 8.6 L, Hct 26.3 L, MCV 80.4, MCH 26.2 L, MCHC 32.5, RDW 17.5 H, Plt Count 504 H, MPV 7.1 L, Neutrophils % 60.7, Lymphocytes % 20.1, Monocytes % 12.5 H, Eosinophils % 5.2 H, Basophils % 1.5 H, Absolute Neutrophils 5.3, Absolute Lymphocytes 1.7, Absolute Monocytes 1.1, Absolute Eosinophils 0.4, Absolute Basophils 0.1 General: Alert, In no apparent distress HEENT: Atraumatic, PERRLA, Mucous membr. moist/pink, EOMI, Sclerae nonicteric Neck: Supple, 2+ carotid pulse no bruit, No LAD, Without JVD or thyroid abnormality Cardiovascular: Regular rate/rhythm, Normal S1 S2 Gastrointestinal: Normal bowel sounds, No tenderness Musculoskeletal: No tenderness Integumentary: No rashes Neurological: Normal gait, Normal speech, Normal tone, Normal affect Laboratory Data (last 24 hrs) 07/19/22 07:39: PT 14.6 H, INR 1.33, APTT 33.7 07/19/22 07:39: Sodium 133 L, Potassium 4.2, BUN 55 H, Creatinine 4.60 H, Glucose 148 H, Total Bilirubin 0.4, AST 13 L, ALT < 10 L, Alkaline Phosphatase 128 H 07/19/22 07:39: WBC 8.70, Hgb 8.6 L, Hct 26.3 L, Plt Count 504 H Conclusions/Impression: Problems ESRD UTI Hypertension DM Plan Continue TTS schedule. Dialysis today If schedule permits would PUF pt tomorrow as she has been over her dry weight for a while and is getting fluid challeneged 1l fluid restriction Renal diet Treatment of UTI Continue to follow.
[2022-07-19] MEDS: INSULIN -REGULAR HUMAN 50 UNIT/0.5 ML ML SQ SCH ×2 (15:20→21:00)
[2022-07-19 16:09] VITALS: BMI 23.0
[2022-07-19] MEDS: HYDROCODONE/APAP 5/325 MG TAB PO PRN (21:37)
[2022-07-19] MEDS: ATORVASTATIN 40 MG TAB PO SCH (21:38)
[2022-07-19] MEDS: HEPARIN 5000 UNIT/ML 1 ML VIAL SQ SCH (21:39)
[2022-07-20 03:55] LABS: Absolute Lymphocytes (CBC) 1.5 K/uL (0.7-4.9); Hematocrit 25.2 % (36.0-45.0); Lymphocytes % 18.9 % (15.3-44.8); MCV 79.9 fL (80-100); MPV 7.1 fL (7.6-11.3); RBC Red Blood Cell Count 3.16 M/uL (3.86-4.86)
[2022-07-20 04:08] LABS: Potassium 3.8 mmol/L (3.5-5.1)
[2022-07-20] MEDS: HYDROCODONE/APAP 5/325 MG TAB PO PRN ×3 (05:28→20:48)
[2022-07-20] MEDS: INSULIN -REGULAR HUMAN 50 UNIT/0.5 ML ML SQ SCH ×4 (07:30→20:49)
[2022-07-20] MEDS: ASPIRIN 81 MG CHEWABLE TABLET PO SCH (07:57)
[2022-07-20] MEDS: HEPARIN 5000 UNIT/ML 1 ML VIAL SQ SCH ×2 (07:58→20:48)
[2022-07-20] MEDS ORDERED: CEFTRIAXONE 1,000 MG in NA CHLORIDE 0.9% 50 ML IVPB SCH (09:00)
[2022-07-20] MEDS ORDERED: POTASSIUM 25 MEQ EFFERV TAB PO ONE (09:00)
[2022-07-20 14:59] LABS: Specific Gravity 1.013 (1.005-1.030); Urine Bacteria 20-50 /HPF (<20); Urine Bilirubin NEGATIVE (Negative); Urine Blood 2+ (Negative); Urine Clarity Extremely Turbid (Clear); Urine Color Orange (Yellow); Urine Crystals Unidentified Few /HPF (None Seen); Urine Glucose 1+ (Negative); Urine Protein 3+ (Negative); Urine Urobilinogen Normal (Normal); Urine WBC Clump Many /HPF (None Seen)
[2022-07-20] MEDS: ATORVASTATIN 40 MG TAB PO SCH (20:48)
--- NOTE | 2022-07-20 21:24 | P.PN ---
Subjective Date of Service: 07/20/22 Chief Complaint: Generalized weakness and fatigue. No acute events overnight. She reports that her generalized weakness has improved significantly. She reports dysuria. She denies any chest pain, shortness of breath, palpitations, or abdominal pain. Review of Systems 10-point ROS is otherwise unremarkable General: Weakness (generalized) Genitourinary: Dysuria Physical Examination - Vital Signs Temperature: 97.0 F Blood Pressure: 99/44 Pulse: 80 Respirations: 14 Pulse Ox (%): 100 - Physical Exam General: Alert, In no apparent distress, Oriented x3 HEENT: Atraumatic, Mucous membr. moist/pink, EOMI, Sclerae nonicteric Neck: JVD not distended Respiratory: Clear to auscultation bilaterally, Normal air movement Cardiovascular: No edema, Regular rate/rhythm, Normal S1 S2, No gallops, No rubs, No murmurs Gastrointestinal: Normal bowel sounds, Soft and benign, Non-distended, No tenderness, No rebound, No guarding Musculoskeletal: No clubbing Integumentary: No rashes Neurological: Normal speech, Normal strength at 5/5 x4 extr, Normal tone, Normal affect Assessment And Plan - Plan # Gram-Negative Urinary Tract Infection # History of ESBL Urinary Tract Infection (April 2023) - Does not meet sepsis criteria - Consult Infectious Diseases - recommendations appreciated - Switch ceftriaxone to meropenem # End-Stage Renal Disease on TuThSa iHD - Appreciate Nephrology recommendations regarding dialysis # Deconditioning - Consulted PT # History of Right Popliteal Deep Venous Thrombosis - Continue home apixaban # Coronary Artery Disease # Hypertension # Hyperlipidemia - Continue aspirin + atorvastatin # Chronic Compensated Congestive Heart Failure with Preserved Ejection Fraction # Rheumatoid Arthritis Resume home medications once verified Anthony White M.D.
[2022-07-20] MEDS ORDERED: APIXABAN 2.5 MG TABLET PO SCH (23:00)
[2022-07-20] MEDS: Meropenem 1,000 MG in NA CHLORIDE 0.9% 100 ML IV SCH (23:24)
[2022-07-21 06:19] LABS: Absolute Lymphocytes (CBC) 2.3 K/uL (0.7-4.9); Hematocrit 24.3 % (36.0-45.0); Lymphocytes % 24.4 % (15.3-44.8); MCV 79.8 fL (80-100); MPV 7.5 fL (7.6-11.3); RBC Red Blood Cell Count 3.04 M/uL (3.86-4.86)
[2022-07-21 06:39] LABS: Potassium 4.3 mmol/L (3.5-5.1)
[2022-07-21 07:03] LABS: Blood Morphology Comment NOTED (NOT SEEN); Platelet Estimate ADEQ
[2022-07-21 07:04] LABS: Anisocytosis 2+
[2022-07-21] MEDS: INSULIN -REGULAR HUMAN 50 UNIT/0.5 ML ML SQ SCH ×4 (07:30→20:47)
[2022-07-21] MEDS ORDERED: Meropenem 1000 MG/VIAL IV ONE (08:08)
[2022-07-21] MEDS ORDERED: NA CHLORIDE 0.9% 100 ML ONE (08:09)
[2022-07-21] MEDS: ASPIRIN 81 MG CHEWABLE TABLET PO SCH (08:14)
[2022-07-21] MEDS: APIXABAN 2.5 MG TABLET PO SCH ×2 (08:14→20:47)
[2022-07-21] MEDS: Meropenem 1,000 MG in NA CHLORIDE 0.9% 100 ML IV SCH (08:14)
--- NOTE | 2022-07-21 08:41 | P.CNS ---
Date of Consult: 07/21/22 Chief Complaint: Generalized weakness and fatigue. History of Present Illness: Patient is a 71-year-old female with a past medical history significant for DM 2, rheumatoid arthritis, hypertension, hyperlipidemia, ESRD who presents with complaint of generalized weakness and malaise onset yesterday. Patient has not been compliant with her dialysis schedule. Patient had dialysis in the 3 days ago and yesterday. Patient reported associated signs and symptoms of nausea. Patient denies any other signs and symptoms. Symptoms are aggravated or relieved by nothing. Patient reported that when he woke up this morning he could not get out of bed due to weakness. Patient decided to present to the hospital due to worsening symptoms Allergies No Known Allergies Allergy (Verified 01/02/22 02:33) Home Medications: Furosemide [Lasix] 80 mg PO DAILY 04/14/20 Isosorbide Mononitrate [Isosorbide Mononitrate ER] 60 mg PO DAILY 04/14/20 Pramipexole [Mirapex*] 1 mg PO BEDTIME 04/14/20 Escitalopram [Lexapro*] 10 mg PO BEDTIME 11/27/21 Pantoprazole [Protonix Tab*] 40 mg PO DAILY 11/27/21 Doxazosin Mesylate 4 mg PO DAILY 01/02/22 Sevelamer Carbonate [Renvela*] 2 tab PO TIDWM 01/02/22 Rivastigmine Tartrate [Rivastigmine] 1 cap PO BID 05/03/22 Apixaban [Eliquis *] 2.5 mg PO BID #30 tab 05/08/22 Ertapenem Na [Invanz] 1 gm IVPB DAILY #5 ml 05/08/22 Heparin [Heparin 1,000 units/mL *] 4,000 unit IV EVERY HD PRN vial 05/08/22 Heparin [Heparin 1,000 units/mL *] 6,000 unit IV EVERY HD PRN vial 05/08/22 Gabapentin 100 mg PO BID 07/19/22 Midodrine HCl 5 mg PO BID 07/19/22 - Past Medical/Surgical History Diabetic: Yes -: Diabetes mellitus type 2-insulin dependent -: Rheumatoid arthritis -: Hypertension -: Hyperlipidemia -: Chronic congestive heart failure-unknown EF -: ESRD on HD -: CAD -: L ankle fusion -: hysterectomy -: Dialysis catheter placement and removal -: Cholecystectomy Psychosocial/ Personal History: Patient lives with her - Social History Smoking Status: Unknown if ever smoked Alcohol use: No CD- Drugs: No Caffeine use: No Place of Residence: Home Review of Systems 10-point ROS is otherwise unremarkable General: As per HPI Physical Examination Temp Pulse Resp BP Pulse Ox 97.5 F 79 16 109/55 L 98 07/21/22 08:00 07/21/22 08:00 07/21/22 08:00 07/21/22 08:00 07/21/22 08:00 General: Alert, In no apparent distress, Oriented x3 Neck: Supple Respiratory: Clear to auscultation bilaterally Cardiovascular: No edema, Normal S1 S2 Gastrointestinal: Normal bowel sounds Musculoskeletal: No clubbing, No swelling, Other (right 3rd finger necrotic with eschar) Integumentary: No rashes, No breakdown Neurological: Normal speech, Normal tone, Sensation intact, Normal affect Urinary: Dialysis catheter active medications Acetaminophen (Acetaminophen 325 Mg Tablet) 650 mg PO Q6H PRN PRN Reason: TEMP > 100' F Hydrocodone Bitart/Acetaminophen (Hydrocodone/Apap 5/325 Mg Tab) 1 tab PO Q6H PRN PRN Reason: Pain scale 5-7 (Moderate) Last Admin: 07/20/22 20:48 Dose: 1 tab Apixaban (Apixaban 2.5 Mg Tablet) 2.5 mg PO BID [facility] Last Admin: 07/21/22 08:14 Dose: 2.5 mg Aspirin (Aspirin 81 Mg Chewable Tablet) 81 mg PO DAILY [facility] Last Admin: 07/21/22 08:14 Dose: 81 mg Atorvastatin Calcium (Atorvastatin 40 Mg Tab) 40 mg PO BEDTIME [facility] Last Admin: 07/20/22 20:48 Dose: 40 mg Glucagon (Glucagon 1 Mg/Vial) 1 mg IM 1X PRN PRN Reason: HYPOGLYCEMIA Heparin Sodium (Porcine) (Heparin 1,000 Unit/Ml Vial) 2,000 unit IV EVERY HD PRN PRN Reason: Prevent Lines Clotting Dextrose (Dextrose 10% Water Iv Soln.) 125 mls @ 0 mls/hr IV PRN PRN; Protocol PRN Reason: HYPOGLYCEMIA Meropenem 1,000 mg/ Sodium (Chloride) 100 mls @ 200 mls/hr IV DAILY [facility] Last Admin: 07/21/22 08:14 Dose: 100 mls Insulin Human Regular (Insulin -Regular Human 50 Unit/0.5 Ml Ml) 0 unit SQ ACHS [facility]; Protocol Last Admin: 07/21/22 07:30 Dose: Not Given Ondansetron HCl (Ondansetron 4 Mg/2 Ml Vial) 4 mg IV Q6HP PRN PRN Reason: NAUSEA / VOMITING Sodium Chloride (Flush Normal Saline 10 Ml) 10 ml IV BID [facility] Last Admin: 07/21/22 08:14 Dose: 10 ml Microbiology 07/19/22 08:39 Catheterized Urine [place] Count - Preliminary >100,000 CFU/ML. 07/19/22 08:39 Catheterized Urine - Preliminary Klebsiella Pneumoniae Esbl Gram Neg Mohsen 07/19/22 09:25 Blood - Blood Aerobic Blood Culture - Preliminary No growth in 24 hours. 07/19/22 09:25 Blood - Blood Anaerobic Blood Culture - Preliminary No growth in 24 hours. 07/19/22 07:39 Blood - Blood Aerobic Blood Culture - Preliminary No growth in 24 hours. 07/19/22 07:39 Blood - Blood Anaerobic Blood Culture - Preliminary No growth in 24 hours. Imagings Data: CT - Head Brain Wo Cont - 07/19/2022 FINDINGS: No intracranial hemorrhage, mass, or edema. Midline structures are unremarkable. Normal ventricular caliber for age. Mild diffuse parenchymal volume loss. Kang-white matter differentiation is preserved, without evidence of acute infarct. No abnormal extra-axial fluid collections. Patchy subcortical and periventricular white matter hypoattenuation, nonspecific, but could reflect chronic small vessel ischemic changes. The pattern is stable. Mastoid air cells and visualized portions of the paranasal sinuses are clear. No acute bony findings. IMPRESSION: No evidence of an acute intracranial process. Stable chronic findings as above. RAD Chest Single View07/19/2022 FINDINGS: The lungs are clear. No pneumothorax or effusion. Stable cardiomegaly. Left chest wall triple lead pacer/ AICD in place. Mediastinal contours are unremarkable. IMPRESSION: No acute pulmonary process. Stable cardiomegaly - Problems (1) UTI (urinary tract infection) Plan: Cultures: - 07/20 UA: Positive - 07/19 UC: ESBL - Klebsiella Pneumoniae - 07/19 BC: Negative Antibiotics: - Had Ceftriaxone on (07/19-07/20) - Current on IV Meropenem (07/20- ) Recommendations: - Continue IV Meropenem for total of 7 days - Can switch to PO Ertapenem when discharge Conclusions/Impression: - UTI POA: Continue IV Meropenem - Moderate protein calorie malnutrition - ESRD - DM2 - Hypertension - Generalized weakness - Rheumatoid arthritis - GERD - Hyperlipidemia - Chronic congestive heart failure-unknown EF - CAD ID will monitor the patient closely for signs of infection with fever and WBC trends Case has been discussed with Dr. Montelongo N Thank you Dr. White for consultation
--- NOTE | 2022-07-21 18:06 | P.PN ---
Subjective Date of Service: 07/21/22 Chief Complaint: Generalized weakness and fatigue. No acute events overnight. She reports that her generalized weakness continues to improve. She reports dysuria, unchanged compared to yesterday. She denies any chest pain, shortness of breath, or abdominal pain. Review of Systems 10-point ROS is otherwise unremarkable Genitourinary: Dysuria Physical Examination - Vital Signs Temperature: 97.6 F Blood Pressure: 108/51 Pulse: 80 Respirations: 16 Pulse Ox (%): 98 - Studies Microbiology Data (last 24 hrs): 07/19/22 08:39 Catheterized Urine [place] Count - Final >100,000 CFU/ML. 07/19/22 08:39 Catheterized Urine - Final Klebsiella Pneumoniae Esbl Gram Neg Mohsen Assessment And Plan - Plan - Physical Exam General: Alert, In no apparent distress, Oriented x3 HEENT: Atraumatic, Sclerae nonicteric Neck: JVD not distended Respiratory: Clear to auscultation bilaterally, Normal air movement Cardiovascular: No edema, Regular rate/rhythm, No murmurs Gastrointestinal: Normal bowel sounds, Soft, No tenderness Musculoskeletal: No clubbing Integumentary: No rashes Neurological: Normal speech, Normal affect # ESBL Klebsiella Pneumoniae Urinary Tract Infection # History of ESBL Urinary Tract Infection (April 2023) - Does not meet sepsis criteria - Consult Infectious Diseases and spoke with Dr. Montelongo - recommendations appreciated - Continue meropenem # End-Stage Renal Disease on TuThSa iHD - Appreciate Nephrology recommendations regarding dialysis # Deconditioning - Consulted PT # History of Right Popliteal Deep Venous Thrombosis - Continue home apixaban # Coronary Artery Disease # Hypertension # Hyperlipidemia - Continue aspirin + atorvastatin # Chronic Compensated Congestive Heart Failure with Preserved Ejection Fraction # Rheumatoid Arthritis Resume home medications once verified Anthony White M.D.
[2022-07-21] MEDS: ATORVASTATIN 40 MG TAB PO SCH (20:47)
[2022-07-22 06:29] LABS: Absolute Lymphocytes (CBC) 2.1 K/uL (0.7-4.9); Hematocrit 26.9 % (36.0-45.0); Lymphocytes % 28.6 % (15.3-44.8); MPV 6.7 fL (7.6-11.3); RBC Red Blood Cell Count 3.36 M/uL (3.86-4.86)
[2022-07-22 06:41] LABS: Potassium 3.9 mmol/L (3.5-5.1)
[2022-07-22] MEDS: INSULIN -REGULAR HUMAN 50 UNIT/0.5 ML ML SQ SCH ×4 (07:30→21:00)
[2022-07-22] MEDS: APIXABAN 2.5 MG TABLET PO SCH ×2 (07:56→21:40)
[2022-07-22] MEDS: ASPIRIN 81 MG CHEWABLE TABLET PO SCH (07:56)
[2022-07-22] MEDS: Meropenem 1,000 MG in NA CHLORIDE 0.9% 100 ML IV SCH ×2 (07:56→17:27)
--- NOTE | 2022-07-22 16:29 | PN ---
Subjective: The patient lying in bed. No new acute event. Chart reviewed. Objective: Vital Signs: Temperature 98, pulse 80, respirations 16, blood pressure 100/40. Lungs: Basal crackles. Heart: S1, S2. Regular. Abdomen: Soft, nontender. Bowel sounds present. Extremity: No edema. Laboratory Data: WBC 7.2, hemoglobin 8.8, platelets 480. Chemistry shows BUN of 23, creatinine 2.6. Urine with wbc more than 50. Micro data shows urine culture growing Klebsiella pneumoniae and the ESBL. Assessment And Plan: Urosepsis. End-stage renal disease. [facility] once patient being discharged for total of 10 days. Diabetes mellitus. Anemia of chron ic disease. We will follow patient as needed. NF/MODL Voice ID: [id number] Report ID: [id number]
--- NOTE | 2022-07-22 16:47 | P.PN ---
Subjective Date of Service: 07/21/22 Chief Complaint: Generalized weakness and fatigue. Pt seen and examined. No complaints at this time. Eating. Pt to discharge home on antibiotics for ESBL uti Physical Examination - Vital Signs Temperature: 97.6 F Blood Pressure: 100/45 Pulse: 80 Respirations: 16 Pulse Ox (%): 97 - Physical Exam General: Alert, In no apparent distress HEENT: Atraumatic, PERRLA, EOMI Neck: Supple, JVD not distended Respiratory: Clear to auscultation bilaterally, Normal air movement Cardiovascular: Regular rate/rhythm, Normal S1 S2 Gastrointestinal: Normal bowel sounds, No tenderness Musculoskeletal: No tenderness Integumentary: No rashes Neurological: Normal speech, Normal tone, Normal affect Lymphatics: No axilla or inguinal lymphadenopathy - Studies Laboratory Last Values WBC 8.70 K/uL (4.3-10.9) 07/19/22 07:39 RBC 3.27 M/uL (3.86-4.86) L 07/19/22 07:39 Hgb 8.6 g/dL (12.0-15.0) L 07/19/22 07:39 Hct 26.3 % (36.0-45.0) L 07/19/22 07:39 MCV 80.4 fL (80-100) 07/19/22 07:39 MCH 26.2 pg (27.0-35.0) L 07/19/22 07:39 MCHC 32.5 g/dL (32.0-36.0) 07/19/22 07:39 RDW 17.5 % (12.1-15.2) H 07/19/22 07:39 Plt Count 504 K/uL (152-406) H 07/19/22 07:39 MPV 7.1 fL (7.6-11.3) L 07/19/22 07:39 Neutrophils % 60.7 % (41.7-73.7) 07/19/22 07:39 Lymphocytes % 20.1 % (15.3-44.8) 07/19/22 07:39 Monocytes % 12.5 % (3.3-12.3) H 07/19/22 07:39 Eosinophils % 5.2 % (0-4.4) H 07/19/22 07:39 Basophils % 1.5 % (0-1.3) H 07/19/22 07:39 Absolute Neutrophils 5.3 K/uL (1.8-8.0) 07/19/22 07:39 Absolute Lymphocytes 1.7 K/uL (0.7-4.9) 07/19/22 07:39 Absolute Monocytes 1.1 K/uL (0.1-1.3) 07/19/22 07:39 Absolute Eosinophils 0.4 K/uL (0-0.5) 07/19/22 07:39 Absolute Basophils 0.1 K/uL (0-0.5) 07/19/22 07:39 PT 14.6 SECONDS (9.5-12.5) H 07/19/22 07:39 INR 1.33 07/19/22 07:39 APTT 33.7 SECONDS (24.3-36.9) 07/19/22 07:39 Sodium 133 mmol/L (136-145) L 07/19/22 07:39 Potassium 4.2 mmol/L (3.5-5.1) 07/19/22 07:39 Chloride 102 mmol/L (98-107) 07/19/22 07:39 Carbon Dioxide 26 mmol/L (21-32) 07/19/22 07:39 Anion Gap 9.2 mEq/L (5.0-15.0) 07/19/22 07:39 BUN 55 mg/dL (7-18) H 07/19/22 07:39 Creatinine 4.60 mg/dL (0.55-1.02) H 07/19/22 07:39 Est GFR (CKD-EPI) 10 ml/min (=/>90) L 07/19/22 07:39 Glucose 148 mg/dL (74-106) H 07/19/22 07:39 Lactic Acid 1.4 mmol/L (0.4-2.0) 07/19/22 07:39 Calcium 9.1 mg/dL (8.5-10.1) 07/19/22 07:39 Total Bilirubin 0.4 mg/dL (0.2-1.0) 07/19/22 07:39 AST 13 U/L (15-37) L 07/19/22 07:39 ALT < 10 U/L (13-56) L 07/19/22 07:39 Alkaline Phosphatase 128 U/L (45-117) H 07/19/22 07:39 Serum Total Protein 7.5 g/dL (6.4-8.2) 07/19/22 07:39 Albumin 2.5 g/dL (3.4-5.0) L 07/19/22 07:39 Globulin 5.0 g/dL (2.3-3.5) H 07/19/22 07:39 Albumin/Globulin Ratio 0.5 (1.1-1.8) L 07/19/22 07:39 Urine pH 6.0 (5.0-7.0) 07/19/22 08:41 Ur Specific [place] 1.020 (1.005-1.030) 07/19/22 08:41 Glucose (UA)(Auto) Negative (Negative) 07/19/22 08:41 Urine Ketones Negative (Negative) 07/19/22 08:41 Urine Blood 1+ (Negative) H 07/19/22 08:41 Urine Nitrite Negative (Negative) 07/19/22 08:41 Ur Leukocyte Esterase 2+ (Negative) H 07/19/22 08:41 Urine RBC <5 /HPF (None Seen) 07/19/22 08:39 Urine WBC >50 /HPF (<5) H 07/19/22 08:39 Urine WBC Clumps Few /HPF (None Seen) H 07/19/22 08:39 Ur Squamous Epith Cells <5 /HPF (None Seen) 07/19/22 08:39 U Non-Squamous Epi Cells <5 /HPF (None Seen) 07/19/22 08:39 Urine Bacteria <20 /HPF (<20) 07/19/22 08:39 Urine Mucus Slight /HPF (None Seen) 07/19/22 08:39 Urine Culture Reflexed Reflexed 07/19/22 08:39 Urine Total Protein 3+ (Negative) H 07/19/22 08:41 Influenza Type A RNA Negative (NEGATIVE) 07/19/22 07:39 Influenza Type B RNA Negative (NEGATIVE) 07/19/22 07:39 SARS-CoV-2 RNA (RT-PCR) Negative (NEGATIVE) 07/19/22 07:39 Assessment And Plan - Plan Problems ESRD Hypertension UTI Plan HD today for volume control and clearance Renal diet 1l fluid restriction Treat UTI Thank you for this interesting consult. Will continue to follow. Physician Review: Patient Assessed, Agree with Above Assessment and Plan
--- NOTE | 2022-07-22 20:35 | P.PN ---
Subjective Date of Service: 07/22/22 Chief Complaint: Generalized weakness and fatigue. No acute events overnight. She states that she feels well and would like to be discharged home. However, she grew ESBL and will require IV antibiotics. Spoke with Dr. Cohn, who has cleared her for a PICC line. Review of Systems 10-point ROS is otherwise unremarkable Genitourinary: Dysuria (improved) Physical Examination - Vital Signs Temperature: 97.6 F Blood Pressure: 100/39 Pulse: 79 Respirations: 16 Pulse Ox (%): 94 Assessment And Plan - Plan - Physical Exam General: Alert, In no apparent distress, Oriented x3 HEENT: Atraumatic, Sclerae nonicteric Neck: JVD not distended Respiratory: Clear to auscultation bilaterally, Normal air movement Cardiovascular: No edema, Regular rate/rhythm, No murmurs Gastrointestinal: Normal bowel sounds, Soft, No tenderness Musculoskeletal: No clubbing Integumentary: No rashes Neurological: Normal speech, Normal affect # ESBL Klebsiella Pneumoniae Urinary Tract Infection # History of ESBL Urinary Tract Infection (April 2023) - Does not meet sepsis criteria - Consult Infectious Diseases and spoke with Dr. Montelongo - recommendations appreciated - Continue meropenem - Requested PICC line and Home Health for antibiotics # End-Stage Renal Disease on [facility] iHD - Appreciate Nephrology recommendations regarding dialysis # Deconditioning - Consulted PT # History of Right Popliteal Deep Venous Thrombosis - Continue home apixaban # Coronary Artery Disease # Hypertension # Hyperlipidemia - Continue aspirin + atorvastatin # Chronic Compensated Congestive Heart Failure with Preserved Ejection Fraction # Rheumatoid Arthritis Resume home medications once verified Anthony White M.D.
[2022-07-22] MEDS: ATORVASTATIN 40 MG TAB PO SCH (21:40)
[2022-07-23 03:24] LABS: Potassium 3.8 mmol/L (3.5-5.1)
[2022-07-23] MEDS: Meropenem 1,000 MG in NA CHLORIDE 0.9% 100 ML IV SCH ×2 (05:57→16:59)
[2022-07-23] MEDS: INSULIN -REGULAR HUMAN 50 UNIT/0.5 ML ML SQ SCH ×4 (07:18→20:47)
[2022-07-23] MEDS: APIXABAN 2.5 MG TABLET PO SCH ×2 (08:34→20:44)
[2022-07-23] MEDS: ASPIRIN 81 MG CHEWABLE TABLET PO SCH (08:34)
--- NOTE | 2022-07-23 14:16 | P.PN ---
Subjective Date of Service: 07/23/22 Chief Complaint: Generalized weakness and fatigue. No acute events overnight. Unable to place PICC line due to right-sided AV fistula and left-sided pacemaker. Reviewed with Dr. Cohn and Dr. Montelongo, we believe that the best course of action is to complete a 7-day course of antibiotics in the hospital (end date: 07/27/2022). She reports that her symptoms have improved and she is no longer experiencing dysuria. Review of Systems 10-point ROS is otherwise unremarkable General: Weakness (generalized, improved) Physical Examination - Vital Signs Temperature: 97.7 F Blood Pressure: 116/51 Pulse: 80 Respirations: 18 Pulse Ox (%): 98 Assessment And Plan - Plan - Physical Exam General: Alert, In no apparent distress, Oriented x3 HEENT: Atraumatic, Sclerae nonicteric Neck: JVD not distended Respiratory: Clear to auscultation bilaterally, Normal air movement Cardiovascular: No edema, Regular rate/rhythm, No murmurs Gastrointestinal: Normal bowel sounds, Soft, No tenderness Musculoskeletal: No clubbing Integumentary: No rashes Neurological: Normal speech, Normal affect # ESBL Klebsiella Pneumoniae Urinary Tract Infection # History of ESBL Urinary Tract Infection (April 2023) - Does not meet sepsis criteria - Consult Infectious Diseases and spoke with Dr. Montelongo - recommendations appreciated - Continue meropenem (end date: 07/27/2022) - Unable to place PICC due to right-sided AV fistula and left-sided pacemaker # End-Stage Renal Disease on [facility] iHD - Appreciate Nephrology recommendations regarding dialysis # Deconditioning - Consulted PT # History of Right Popliteal Deep Venous Thrombosis - Continue home apixaban # Coronary Artery Disease # Hypertension # Hyperlipidemia - Continue aspirin + atorvastatin # Chronic Compensated Congestive Heart Failure with Preserved Ejection Fraction # Rheumatoid Arthritis Resume home medications once verified Anthony White M.D.
[2022-07-23] MEDS: ATORVASTATIN 40 MG TAB PO SCH (20:44)
[2022-07-24] MEDS: Meropenem 1,000 MG in NA CHLORIDE 0.9% 100 ML IV SCH ×2 (05:04→17:24)
[2022-07-24 06:01] LABS: Absolute Lymphocytes (CBC) 1.6 K/uL (0.7-4.9); MPV 6.7 fL (7.6-11.3); RBC Red Blood Cell Count 3.38 M/uL (3.86-4.86)
[2022-07-24 06:13] LABS: Potassium 3.5 mmol/L (3.5-5.1)
[2022-07-24] MEDS: INSULIN -REGULAR HUMAN 50 UNIT/0.5 ML ML SQ SCH ×4 (07:30→20:29)
[2022-07-24] MEDS: ASPIRIN 81 MG CHEWABLE TABLET PO SCH (08:56)
[2022-07-24] MEDS: APIXABAN 2.5 MG TABLET PO SCH ×2 (08:56→20:28)
--- NOTE | 2022-07-24 14:15 | P.PN ---
Subjective Date of Service: 07/24/22 Chief Complaint: Generalized weakness and fatigue. No acute events overnight. She reports that she feels well and has no concerns this morning. Due to the inability to place a PICC line, she will need to remain in the hospital for the duration of her antibiotic course (end date: 07/27). Review of Systems 10-point ROS is otherwise unremarkable General: Weakness (generalized) Physical Examination - Vital Signs Temperature: 97.0 F Blood Pressure: 124/56 Pulse: 79 Respirations: 16 Pulse Ox (%): 100 - Studies Microbiology Data (last 24 hrs): 07/19/22 09:25 Blood - Blood Aerobic Blood Culture - Final No growth in 5 days. 07/19/22 09:25 Blood - Blood Anaerobic Blood Culture - Final No growth in 5 days. 07/19/22 07:39 Blood - Blood Aerobic Blood Culture - Final No growth in 5 days. 07/19/22 07:39 Blood - Blood Anaerobic Blood Culture - Final No growth in 5 days. Assessment And Plan - Plan - Physical Exam General: Alert, In no apparent distress, Oriented x3 HEENT: Atraumatic, Sclerae nonicteric Neck: JVD not distended Respiratory: Clear to auscultation bilaterally, Normal air movement Cardiovascular: No edema, Regular rate/rhythm, No murmurs Gastrointestinal: Normal bowel sounds, Soft, No tenderness Musculoskeletal: No clubbing Integumentary: No rashes Neurological: Normal speech, Normal affect # ESBL Klebsiella Pneumoniae Urinary Tract Infection # History of ESBL Urinary Tract Infection (April 2023) - Does not meet sepsis criteria - Consult Infectious Diseases and spoke with Dr. Montelongo - recommendations appreciated - Continue meropenem (end date: 07/27/2022) - Unable to place PICC due to right-sided AV fistula and left-sided pacemaker # End-Stage Renal Disease on [facility] iHD - Appreciate Nephrology recommendations regarding dialysis # Deconditioning - Consulted PT # History of Right Popliteal Deep Venous Thrombosis - Continue home apixaban # Coronary Artery Disease # Hypertension # Hyperlipidemia - Continue aspirin + atorvastatin # Chronic Compensated Congestive Heart Failure with Preserved Ejection Fraction # Rheumatoid Arthritis Resume home medications once verified No new changes today. Continue antibiotics. Anthony White M.D.
[2022-07-24] MEDS: ATORVASTATIN 40 MG TAB PO SCH (20:28)
[2022-07-25] MEDS: Meropenem 1,000 MG in NA CHLORIDE 0.9% 100 ML IV SCH ×2 (05:43→17:14)
[2022-07-25] MEDS: INSULIN -REGULAR HUMAN 50 UNIT/0.5 ML ML SQ SCH ×4 (07:30→20:51)
--- NOTE | 2022-07-25 08:04 | P.PN ---
Subjective Date of Service: 07/25/22 Chief Complaint: Generalized weakness and fatigue. Patient lying in bed with no cardiopulmonary distress seem upon examination. Denied having N, V, diarrhea, or constipation Physical Examination - Vital Signs Temperature: 96.9 F Blood Pressure: 115/54 Pulse: 80 Respirations: 16 Pulse Ox (%): 99 - Physical Exam General: Alert, In no apparent distress, Oriented x3 Respiratory: Clear to auscultation bilaterally Cardiovascular: No edema, Normal S1 S2 Gastrointestinal: Normal bowel sounds Musculoskeletal: No swelling, No tenderness, Other (right 3rd finger necrotic with eschar) Integumentary: No rashes, No breakdown, Other (right 3rd finger necrotic with eschar) Neurological: Normal speech, Normal tone, Sensation intact, Normal affect Urinary: Dialysis catheter - Studies current medications Acetaminophen (Acetaminophen 325 Mg Tablet) 650 mg PO Q6H PRN PRN Reason: TEMP > 100' F Hydrocodone Bitart/Acetaminophen (Hydrocodone/Apap 5/325 Mg Tab) 1 tab PO Q6H PRN PRN Reason: Pain scale 5-7 (Moderate) Last Admin: 07/20/22 20:48 Dose: 1 tab Apixaban (Apixaban 2.5 Mg Tablet) 2.5 mg PO BID [facility] Last Admin: 07/24/22 20:28 Dose: 2.5 mg Aspirin (Aspirin 81 Mg Chewable Tablet) 81 mg PO DAILY [facility] Last Admin: 07/24/22 08:56 Dose: 81 mg Atorvastatin Calcium (Atorvastatin 40 Mg Tab) 40 mg PO BEDTIME [facility] Last Admin: 07/24/22 20:28 Dose: 40 mg Glucagon (Glucagon 1 Mg/Vial) 1 mg IM 1X PRN PRN Reason: HYPOGLYCEMIA Heparin Sodium (Porcine) (Heparin 1,000 Unit/Ml Vial) 2,000 unit IV EVERY HD PRN PRN Reason: Prevent Lines Clotting Dextrose (Dextrose 10% Water Iv Soln.) 125 mls @ 0 mls/hr IV PRN PRN; Protocol PRN Reason: HYPOGLYCEMIA Meropenem 1,000 mg/ Sodium (Chloride) 100 mls @ 200 mls/hr IV Q12H [facility] Last Admin: 07/25/22 05:43 Dose: 100 mls Insulin Human Regular (Insulin -Regular Human 50 Unit/0.5 Ml Ml) 0 unit SQ ACHS [facility]; Protocol Last Admin: 07/24/22 20:29 Dose: Not Given Ondansetron HCl (Ondansetron 4 Mg/2 Ml Vial) 4 mg IV Q6HP PRN PRN Reason: NAUSEA / VOMITING Sodium Chloride (Flush Normal Saline 10 Ml) 10 ml IV BID [facility] Last Admin: 07/24/22 20:29 Dose: 10 ml Microbiology Data (last 24 hrs): Microbiology 07/19/22 09:25 Blood - Blood Aerobic Blood Culture - Final No growth in 5 days. 07/19/22 09:25 Blood - Blood Anaerobic Blood Culture - Final No growth in 5 days. 07/19/22 07:39 Blood - Blood Aerobic Blood Culture - Final No growth in 5 days. 07/19/22 07:39 Blood - Blood Anaerobic Blood Culture - Final No growth in 5 days. 07/19/22 08:39 Catheterized Urine [place] Count - Final >100,000 CFU/ML. 07/19/22 08:39 Catheterized Urine - Final Klebsiella Pneumoniae Esbl Gram Neg [facility] Assessment And Plan - Current Problems (Diagnosis) (1) UTI (urinary tract infection) Plan: Cultures: - 07/20 UA: Positive - 07/19 UC: ESBL - Klebsiella Pneumoniae - 07/19 BC: Negative Antibiotics: - Had Ceftriaxone on (07/19-07/20) - Current on IV Meropenem (07/20- ) Recommendations: - Continue IV Meropenem for total of 7 days, 07/20-07/26 - Plan - UTI POA: Continue IV Meropenem for total of 7 days - Moderate protein calorie malnutrition - ESRD - DM2 - Hypertension - Generalized weakness - Rheumatoid arthritis - GERD - Hyperlipidemia - Chronic congestive heart failure-unknown EF - CAD ID will monitor the patient closely for signs of infection with fever and WBC trends Case has been discussed with Dr. Montelongo, N Physician Review: Patient Assessed, Agree with Above Assessment and Plan
[2022-07-25] MEDS: APIXABAN 2.5 MG TABLET PO SCH ×2 (08:32→20:49)
[2022-07-25] MEDS: ASPIRIN 81 MG CHEWABLE TABLET PO SCH (08:32)
[2022-07-25 12:50] LABS: Potassium 3.9 mmol/L (3.5-5.1)
[2022-07-25] MEDS: ATORVASTATIN 40 MG TAB PO SCH (20:49)
[2022-07-25] MEDS: NEPRO SHAKE 237 ML CAN PO SCH (20:50)
[2022-07-26] MEDS: Meropenem 1,000 MG in NA CHLORIDE 0.9% 100 ML IV SCH ×2 (05:45→16:02)
[2022-07-26 06:16] LABS: Absolute Lymphocytes (CBC) 1.9 K/uL (0.7-4.9); Hematocrit 27.5 % (36.0-45.0); MCV 80.1 fL (80-100); MPV 6.9 fL (7.6-11.3); RBC Red Blood Cell Count 3.43 M/uL (3.86-4.86)
[2022-07-26 06:17] LABS: Potassium 3.9 mmol/L (3.5-5.1)
[2022-07-26] MEDS: INSULIN -REGULAR HUMAN 50 UNIT/0.5 ML ML SQ SCH ×3 (07:30→15:59)
--- NOTE | 2022-07-26 07:49 | P.PN ---
Subjective Date of Service: 07/26/22 Chief Complaint: Generalized weakness and fatigue. Patient sitting in the chair very pleasant with no cardiopulmonary distress seem upon examination. Plan to have HD today then discharge home Physical Examination - Vital Signs Temperature: 97.2 F Blood Pressure: 124/46 Pulse: 82 Respirations: 18 Pulse Ox (%): 96 - Physical Exam General: Alert, In no apparent distress, Oriented x3 Respiratory: Clear to auscultation bilaterally Cardiovascular: No edema, Normal S1 S2 Gastrointestinal: Normal bowel sounds Musculoskeletal: Other (right 3rd finger necrotic with eschar) Integumentary: Skin lesion (right 3rd finger necrotic with eschar) Neurological: Normal gait, Normal speech, Normal tone, Sensation intact, Normal affect Urinary: Dialysis catheter - Studies active medications Acetaminophen (Acetaminophen 325 Mg Tablet) 650 mg PO Q6H PRN PRN Reason: TEMP > 100' F Apixaban (Apixaban 2.5 Mg Tablet) 2.5 mg PO BID [facility] Last Admin: 07/25/22 20:49 Dose: 2.5 mg Aspirin (Aspirin 81 Mg Chewable Tablet) 81 mg PO DAILY [facility] Last Admin: 07/25/22 08:32 Dose: 81 mg Atorvastatin Calcium (Atorvastatin 40 Mg Tab) 40 mg PO BEDTIME [facility] Last Admin: 07/25/22 20:49 Dose: 40 mg Enteral Nutritional Formula (Nepro Shake 237 Ml Can) 237 ml PO BID [facility] Last Admin: 07/25/22 20:50 Dose: 237 ml Glucagon (Glucagon 1 Mg/Vial) 1 mg IM 1X PRN PRN Reason: HYPOGLYCEMIA Dextrose (Dextrose 10% Water Iv Soln.) 125 mls @ 0 mls/hr IV PRN PRN; Protocol PRN Reason: HYPOGLYCEMIA Meropenem 1,000 mg/ Sodium (Chloride) 100 mls @ 200 mls/hr IV Q12H [facility] Last Admin: 07/26/22 05:45 Dose: 100 mls Insulin Human Regular (Insulin -Regular Human 50 Unit/0.5 Ml Ml) 0 unit SQ ACHS [facility]; Protocol Last Admin: 07/25/22 20:51 Dose: Not Given Ondansetron HCl (Ondansetron 4 Mg/2 Ml Vial) 4 mg IV Q6HP PRN PRN Reason: NAUSEA / VOMITING Sodium Chloride (Flush Normal Saline 10 Ml) 10 ml IV BID [facility] Last Admin: 03/06/23 20:50 Dose: 10 ml Microbiology Data (last 24 hrs): Microbiology 07/19/22 09:25 Blood - Blood Aerobic Blood Culture - Final No growth in 5 days. 07/19/22 09:25 Blood - Blood Anaerobic Blood Culture - Final No growth in 5 days. 07/19/22 07:39 Blood - Blood Aerobic Blood Culture - Final No growth in 5 days. 07/19/22 07:39 Blood - Blood Anaerobic Blood Culture - Final No growth in 5 days. 07/19/22 08:39 Catheterized Urine [place] Count - Final >100,000 CFU/ML. 07/19/22 08:39 Catheterized Urine - Final Klebsiella Pneumoniae Esbl Gram Neg [facility] Assessment And Plan - Current Problems (Diagnosis) (1) UTI (urinary tract infection) Plan: Cultures: - 07/20 UA: Positive - 07/19 UC: ESBL - Klebsiella Pneumoniae - 07/19 BC: Negative Antibiotics: - Had Ceftriaxone on (07/19-07/20) - Current on IV Meropenem (07/20- ) Recommendations: - Continue IV Meropenem for total of 7 days, 07/20-07/26 - Plan - UTI POA: Continue IV Meropenem for total of 7 days - Moderate protein calorie malnutrition - ESRD - DM2 - Hypertension - Generalized weakness - Rheumatoid arthritis - GERD - Hyperlipidemia - Chronic congestive heart failure-unknown EF - CAD ID will monitor the patient closely for signs of infection with fever and WBC trends Case has been discussed with Dr. Montelongo N Physician Review: Patient Assessed, Agree with Above Assessment and Plan
[2022-07-26] MEDS: NEPRO SHAKE 237 ML CAN PO SCH (08:35)
[2022-07-26] MEDS: ASPIRIN 81 MG CHEWABLE TABLET PO SCH (08:35)
[2022-07-26] MEDS: APIXABAN 2.5 MG TABLET PO SCH (08:35)
[2022-07-26 11:43] VITALS: O2SAT 96
[2022-07-26 16:16] VITALS: BP 107/42; TEMP 98.8
--- NOTE | 2022-07-29 10:29 | P.PN ---
Subjective Date of Service: 07/26/22 Chief Complaint: Generalized weakness and fatigue. Pt seen and examined. No complaints at this time. Pt to dialyze today Physical Examination - Vital Signs Temperature: 98.8 F Blood Pressure: 107/42 Pulse: 80 Respirations: 16 Pulse Ox (%): 96 - Physical Exam General: Alert, In no apparent distress HEENT: Atraumatic, PERRLA, EOMI Neck: Supple, JVD not distended Respiratory: Clear to auscultation bilaterally, Normal air movement Cardiovascular: Regular rate/rhythm, Normal S1 S2 Gastrointestinal: Normal bowel sounds, No tenderness Musculoskeletal: No tenderness Integumentary: No rashes Neurological: Normal speech, Normal tone, Normal affect Lymphatics: No axilla or inguinal lymphadenopathy Assessment And Plan - Plan Problems ESRD Hypertension UTI Plan HD today for volume control and clearance Renal diet 1l fluid restriction Treat UTI Thank you for this interesting consult. Will continue to follow. Physician Review: Patient Assessed, Agree with Above Assessment and Plan
== END 2022-07-26 17:50 | disposition home health service (06) | DRG 689 ==
LOC: ER 07:24 → ERHOLD 12:45 → 2ND 21:01
PROVIDERS: ADMIT Internal Medicine; ATTEND Hospitalist
PROC: 5A1D70Z Performance of Urinary Filtration, Intermittent, Less than 6 Hours Per Day (ICD-10-PCS; principal; 2022-07-19)
DX: N39.0 Urinary tract infection, site not specified (principal); E43 Unspecified severe protein-calorie malnutrition; N18.6 End stage renal disease; I50.32 Chronic diastolic (congestive) heart failure; I13.2 Hypertensive heart and chronic kidney disease with heart failure and with stage 5 chronic kidney disease, or end stage renal disease; Z16.12 Extended spectrum beta lactamase (ESBL) resistance; E11.22 Type 2 diabetes mellitus with diabetic chronic kidney disease; E78.5 Hyperlipidemia, unspecified; D63.8 Anemia in other chronic diseases classified elsewhere; K21.9 Gastro-esophageal reflux disease without esophagitis; M06.9 Rheumatoid arthritis, unspecified; I25.10 Atherosclerotic heart disease of native coronary artery without angina pectoris; B96.1 Klebsiella pneumoniae [K. pneumoniae] as the cause of diseases classified elsewhere; Z99.2 Dependence on renal dialysis; Z79.4 Long term (current) use of insulin; Z68.23 Body mass index [BMI] 23.0-23.9, adult; Z91.15 Patient's noncompliance with renal dialysis; Z79.01 Long term (current) use of anticoagulants; Z90.49 Acquired absence of other specified parts of digestive tract; Z90.710 Acquired absence of both cervix and uterus; Z79.899 Other long term (current) drug therapy; Z86.718 Personal history of other venous thrombosis and embolism; Z20.822 Contact with and (suspected) exposure to COVID-19
CPT/HCPCS: 0240U; 36415; 51702; 70450; 71045; 80048; 80053; 81001; 81003; 81015; 82947; 83605; 83880; 85025; 85610; 85730; 87040; 87077; 87086; 87088; 87186; 90935; 93005; 96374; 96375; 97116; 97161; 97530; 99285; J1644; J1815; J2185; J2405; J7050

== ENCOUNTER 2022-07-30 02:48 | Observation (INO) | payer OTHER ==
--- OUTSIDE RECORDS SUMMARY | 2022-07-30 02:58 | XMS REPORT | Continuity of Care Document ---
:1950 Author Organization [facility] t Address [address] [facility] [address] [place] [address] Care Team Providers Name Role Phone Pcp, Patient Does Not Have A Primary Care Physician [id number] Greg Fuentes Attending Clinician Unavailable Doctor Unassigned, [place] Attending Clinician Unavailable Luc Alvarez Attending Clinician Alannah Renner MD Attending Clinician Annalee Bey MD Attending Clinician Mauro Mendoza MD Attending Clinician ANNALEE BEY Attending Clinician Unavailable ALANNAH RENNER Attending Clinician Unavailable Derian HOLLIDAY, Trinidad Reza Attending Clinician Thao HOLLIDAY, Corrine Attending Clinician Edwin Kaur MD Attending Clinician [phone] John HOLLIDAY, Shanon Vidal Attending Clinician [phone] Tim HOLLIDAY, Tammy Thompson Attending Clinician Armen HOLLIDAY, Edwin Attending Clinician Scot HOLLIDAY, Tasneem Attending Clinician Savannah HOLLIDAY, Annalee Attending Clinician Leodan Rebolledo MD Attending Clinician Ru HOLLIDAY, Josemanuel Attending Clinician Andre Navarro Attending Clinician Juan STUDENT LIFE DEAN, Grazyna Magana Attending Clinician Abbie HOLLIDAY, Joanna [...] Number Effective Date Expiration Date S gus [facility] [id number] 2021 (NON-CONTRACTED) 00:00:00 [facility] [id number] [address] [facility] 00[facility]00:00 [facility] - [id number] [facility] Problems Condition Condition Condition Status Onset Resolution [...] 2019-05 M ethodi at rest at rest 15 00:00: Hospita 00 l Elevated Elevated Disease Active 2019-05 Metho di troponin troponin 06-05 00:00: Hospita 00 l 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 00:00: Ho spita vein vein 00 l Complicati Complicati Disease Active 2019-05 M ethodi on of on of 05-22 vascular vascular 00:00: Hospit a access for access for 00 l dialysis dialysis Dehydratio Dehydratio Disease Active M ethodi n n 10-25 st 00:00: Hospita 00 l Hypoglycem Hypoglycem Disease Active M ethodi ia ia 10-25 00:00: Hospita 00 l Edema of Edema of Disease Active Metho di left upper left upper 07-12 extremity extremity 00:00: [facility] 00 l 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 00:00: [facility] system system 00 l Other Other Disease Active Methodi specified specified 07-10 anemias anemias 00:00: Hospita 00 l ESRD (end ESRD (end Disease Active [facility] stage stage 2-19 st renal renal 00:00: Hospita disease) disease) 00 l on on dialysis dialysis Acute on Acute on Disease Active Metho di chronic chronic 07-10 congestive congestive 00:00: Ho spita heart heart 00 l failure failure 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 1-08 st , initial , initial 00:00: [facility] encounter encounter 00 l Left-sided Left-sided Disease Active 2018-05 M ethodi chest pain chest pain 1-06 st 00:00: Hospita 00 l Altered Altered Disease Active 2018-05 [facility] mental mental 0-14 st status status 00:00: Hospita 00 l Right leg Right leg Disease Active [facility] pain pain 01-28 st 00:00: Hospita 00 l Hypokalemi Hypokalemi Disease Active M ethodi a a 9 st 00:00: Hospita 00 l Hypokalemi Hypokalemi Disease Active M ethodi a a 09-16 st 00:00: Hospita 00 l Acute Acute Disease Active 2017-05 [facility] renal renal 1-13 st failure failure 00:00: Hospita 00 l Hypoglycem Hypoglycem Disease Active 2017-05 M ethodi ia ia 0- st 00:00: Hospita 00 l Primary Primary [...] Active M ethodi rosis of rosis of 3-28 st [place] 00:[place]: [facility]ospita coronary coronary 00 l artery of artery of [place] heart heart without without angina angina pectoris [...] Mixed Disease Active Methodi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 08-16 emia emia 00:00: Hospita 00 l RLS RLS Disease Active [facility] (restless (restless 08-16 legs legs 00:00: Hospita syndrome) syndrome) 00 l Diverticul Diverticul Disease Active M ethodi osis of osis of 08-16 large large 00:00: Hospita intestine intestine 00 l without without hemorrhage hemorrhage Status Status Disease Active [facility] cardiac cardiac 08-16 pacemaker pacemaker 00:00: [facility] 00 l Congestive Congestive Disease Active M ethodi heart heart 08-16 st failure failure 00:00: Hospita 00 l Primary Primary Disease Active [facility] insomnia insomnia 08-16 st 00:00: Hospita 00 l ART ART Disease Active [facility] (obstructi (obstructi 08-16 ve sleep ve sleep 00:00: Hospit a apnea) apnea) 00 l CKD CKD Disease Active [facility] (chronic (chronic 8-27 ity of kidney kidney 00:00: [place] disease) disease) 00 Medica l stage 4, stage 4, Branch GFR 15-29 GFR 15-29 ml/min ml/min Type 2 Type 2 Disease Active Overview: [facility] s diabetes diabetes Formattin ity of mellitus mellitus g of this [facility] as with with note Medical diabetic diabetic might be Bran ch nephropath nephropath different y y from the original. follows with Dr. Ngo in [place] Neuropathy Neuropathy Disease Active Overview : [facility] Formattin ity of g of this [place] note Medical might be Branch different from the original. in feet and legs Hyperchole Hyperchole Disease Active Overview : [facility] steremia steremia Formattin ity of g of this [place] note Medical might be Branch different from the original. follows with Dr. Higuera HTN HTN Disease Active Overview: Univer s (hypertens (hypertens Formattin ity of ion) ion) g of this [place] note Medical might be Branch different from the original. follows with Dr. Higuera Atrial Atrial Disease Active Overview: [facility] s fibrillati fibrillati Formattin ity of on on g of this [place] note Medical might be Branch different from the original. follows with Dr. Higuera Allergies, Adverse Reactions, Alerts Allergy Allergy Status Severity Reaction(s) Onset Inactive Treating Comm ents Source Name Type Date Date Clinician No Known DA Active [facility] Allergie 06-07 Clear s 00:00: An 00 [facility] Hydrocod Propensi Active GI "not an Metho di one ty to Intolerance 06-02 allergy, st adverse 00:00: but it Hospita reaction 00 upsets my l s to stomach drug every time I take it" No Known DA Active U [facility] Allergie 01-30 Clear s 00:00: An 00 [facility] NO KNOWN Allergy Active [facility] NO KNOWN Drug Active [facility] ALLERGIE Class ity of S [place] [facility] Family History Family Member Diagnosis Comments Start Date Stop Date Source Natural brother Cancer [facility] Natural brother Colon cancer [facility] Natural brother [facility] Maternal grandmother Brain cancer [facility]aternal grandmother [facility] mother [facility] Natural mother Uterine [facility] Natural sister Breast cancer [facility] sister Cancer [facility] Social History Social Habit Start Date Stop Date Quantity Comments Source History [facility] Alcohol Std Drinks Hospit al Tobacco use and 2022-01-08 2022-01-08 Never used [facility] exposure 00:00:00 00:00:00 Medical Center Alcohol intake 2021-09-14 2021-09-14 Current [facility] 00:00:00 00:00:00 non-drinker of Hospital alcohol (finding) History [facility] 2020-04-05 2020-04-05 1 [facility] Alcohol Frequency 00:00:00 00:00:[address] Hosp[address] l [address] [facility] 2020-04-05 2020-04-05 1 [facility] Alcohol Binge 00:00:00 00:00:00 Hospital Sex [birth year] At [birth year] [facility] 00:00:00 00:00:00 Hospital Smoking Status Start Date Stop Date Source Never smoker [facility] Medications Ordered Filled Start Stop Current Ordering Indication Dosage Frequency Signature Comments Components Source Medication Medication Date Date Medication? Clinician (SIG) Name Name aspirin 81 0 Yes 81mg QD Take [address] MG chewable 8-30 by mouth Luke s tablet 16:49: daily. [address] apixaban 0 Yes 2.5mg Q.5D Take 2.[address] (Eliquis) 8-30 mg by [facility] 2.5 mg Tab 16:49: mouth 2 Medi keira tablet 03 (two) Center times daily. pramipexole 0 Yes 1mg QD Take [address] (MIRAPEX) 1 8-30 by mouth Luke s MG tablet 16:49: nightly. [address] semaglutide Yes .25mg Inject [facility] (Ozempic) 8-30 0.25 mg [facility]ukes 0.25 mg or 16:49: subcutaneo M edical 0.5 mg(2 03 usly every Cente r mg/1.5 mL) 7 days PnIj Every Monday . pantoprazol 0 Yes 40mg QD Take [address] e 8-30 by mouth Lukes (PROTONIX) 16:49: daily. Medic al [address] [place] [address] tablet traZODone 0 Yes 100mg QD Take [address] (DESYREL) 8-30 mg by [facility]ukes 100 MG 16:49: mouth Medical tablet 03 nightly. [place] aspirin 81 0 Yes 81mg QD Take [address] MG chewable 8-30 by mouth Luke s tablet 16:49: daily. [address] apixaban 0 Yes 2.5mg Q.5D Take 2.[address] (Eliquis) 8-30 mg by [facility] 2.5 mg Tab 16:49: mouth 2 Medi keira tablet 03 (two) Center times daily. pramipexole 2021-0 Yes 1mg QD Take [address] (MIRAPEX) 1 8-30 by mouth Luke s MG tablet 16:49: nightly. [address] semaglutide 0 Yes .25mg Inject [facility] (Ozempic) 8-30 0.25 mg [facility]ukes 0.25 mg or 16:49: subcutaneo M edical 0.5 mg(2 03 usly every Cente r mg/1.5 mL) 7 days PnIj Every Monday . pantoprazol 2021-0 Yes 40mg QD Take [address] e 8-30 by mouth [facility]ukes (PROTONIX) 16:49: daily. Medic al 40 MG 03 Center tablet traZODone 2021-0 Yes 100mg QD Take [address] (DESYREL) 8-30 mg by Lukes 100 MG 16:49: mouth Medical tablet 03 nightly. [place] aspirin 81 2021-0 Yes 81mg QD Take [address] MG chewable 8-30 by mouth Luke s tablet 16:49: daily. [facility] 03 [place] apixaban 2021-0 Yes 2.5mg Q.5D Take 2.[address] (Eliquis) 8-30 mg by Lukes 2.5 mg Tab 16:49: mouth 2 Medi keira tablet 03 (two) Center times daily. pramipexole 0 Yes 1mg QD Take [address] (MIRAPEX) 1 8-30 by mouth Luke s MG tablet 16:49: nightly. Medi keira 03 Center semaglutide 0 Yes .25mg Inject [facility] (Ozempic) 8-30 0.25 mg [facility]ukes 0.25 mg or 16:49: subcutaneo M edical 0.5 mg(2 03 usly every Cente r mg/1.5 mL) 7 days PnIj Every Monday . pantoprazol 2021-0 Yes 40mg QD Take [address] e 8-30 by mouth Lukes (PROTONIX) 16:49: daily. Medic al 40 MG 03 Center tablet traZODone 2021-0 Yes 100mg QD Take [address] (DESYREL) 8-30 mg by Lukes 100 MG 16:49: mouth Medical tablet 03 nightly. [place] aspirin 81 2021-0 Yes 81mg QD Take [address] MG chewable 8-30 by mouth Luke s tablet 16:49: daily. [facility] 03 [place] apixaban 2021-0 Yes 2.5mg Q.5D Take 2.[address] [...] 03 nightly. Center hydrALAZINE 2021- No 25mg Q.[id number] Take [address] (APRESOLINE 01-18-30 [id number] by mouth 3 [facility]ukes ) 25 MG [...] :00 daily. Center hydrALAZINE 2021- No 25mg Q.[id number] Take [address] (APRESOLINE 01-18-30 [id number] by mouth 3 [facility]ukes ) 25 MG 11:55: 00:00 3D (three) Medica l tablet 27 :00 times Center daily. budesonide 2021- No 3mg QD Take [address] (ENTOCORT 01-18-30 by mouth [facility]ukes EC) 3 mg 24 11:55: 00:00 every Medi keira hr capsule 27 :00 morning. Felipe cabrera carvediloL 2021- No 25mg Take 25 mg [...] 40U QD Inject [address] glargine -18 01-30 Units [facility]ukes (LANTUS, 11:55: 00:00 subcutaneo Me [...] Medical capsule 27 :00 daily. Center hydrALAZINE No 25mg Q.[id number] Take [address] (APRESOLINE 01-18 [id number] by mouth 3 [facility]ukes ) 25 MG 11:55: 00:00 3D (three) Medica l tablet 27 :00 times Center daily. budesonide 2021- No 3mg QD Take [address] (ENTOCORT 01-18 by mouth Lukes EC) 3 mg 24 11:55: 00:00 every Medi keira hr capsule 27 :00 morning. Cente r carvediloL 2021- No 25mg Take [address] (COREG) 25 01-18 by mouth 2 Camille kes MG [...] 00:00 subcutaneo Me dical SEMGLEE) 27 :00 [facility] Center 100 unit/mL nightly injection Use as [...] :00 daily. Center hydrALAZINE 2021- No 25mg Q.[id number] Take [address] (APRESOLINE 01-18 [id number] by mouth 3 [facility]ukes ) 25 MG 11:55: 00:00 3D (three) Medica l tablet 27 :00 times Center daily. budesonide 2021- No 3mg QD Take [address] (ENTOCORT 01-18 by mouth [facility]ukes EC) 3 mg 24 11:55: 00:00 every Medi keira hr capsule 27 :00 morning. Cente r carvediloL 2021- No 25mg Take [address] (COREG) 25 01-18- by mouth 2 Camille kes MG tablet 11:55: 00:00 (two) Medica l 27 :00 times Center daily with breakfast and dinner. doxazosin 2021- No 4mg QD Take [address] (CARDURA) 4 01-18- by mouth Christopher es MG tablet 11:55: 00:00 nightly. Med ical 27 :00 Center isosorbide 2021- No 60mg QD Take [address] mononitrate 01-18- by mouth Christopher es (IMDUR) 60 11:55: [...] 1{tbl} Take [address] -acetaminop 01-18- tablet by Camille pablo (NORCO 00:00: 23:59 mouth Medic al 5-325) 00 :00 every 6 Center 5-325 mg (six) per tablet hours as needed for Pain (Right knee septic joint) for up to 30 days. Max Daily Amount: 4 tablets HYDROcodone 2021- No 1{tbl} Take [address] -acetaminop -18 02- tablet by Camille pablo (NORCO 00:00: 23:59 mouth Medic al 5-325) 00 :00 every 6 Center 5-325 mg (six) per tablet hours as needed for Pain (Right knee septic joint) for up to 30 days. Max Daily Amount: 4 tablets HYDROcodone 2021-2021- No 1{tbl} Take [address] -acetaminop 01-18 tablet by Camille pablo (NORCO 00:00: 23:59 mouth Medic al 5-325) 00 :00 every 6 Center 5-325 mg (six) per tablet hours as needed for Pain (Right knee septic joint) for up to 30 days. Max Daily Amount: 4 tablets HYDROcodone 2021-2021- [...] 125mg Q2D Take 1 Met [facility] (Vancocin) 10-[address] 125 MG 00:00: 04:59 (125 mg Hospita capsule 00 :00 total) by l mouth every other day for 7 doses. vancomycin 2021- No 125mg Q2D Take 1 Met [facility] (Vancocin) 10-11-[address] 125 MG 00:00: 04:59 (125 mg Hospita capsule 00 :00 total) by l mouth every other day for 7 doses. vancomycin 2021-2021- No 125mg QD Take 1 Met [facility] (Vancocin) 10-04-[address] 125 MG 00:00: 04:59 (125 mg Hospita capsule 00 :00 total) by l mouth daily for 7 doses. vancomycin 0 2021- No 125mg QD Take 1 Met [facility] (Vancocin) 10-04-[address] 125 MG 00:00: 04:59 (125 mg Hospita capsule 00 :00 total) by l mouth daily for 7 doses. vancomycin 2021- No 125mg Q.5D Take 1 Met [facility] (Vancocin) 09-26-[address] 125 MG 00:00: 04:59 (125 mg Hospita capsule 00 :00 total) by l mouth 2 (two) times a day for 14 doses. vancomycin 0 2021- No 125mg Q.5D Take 1 Met [facility] (Vancocin) 09-26-[address] 125 MG 00:00: 04:59 (125 mg Hospita capsule 00 :00 total) by l mouth 2 (two) times a day for 14 doses. vancomycin 2021- No 125mg Q.[id number] Take 1 [facility] (Vancocin) 09-24 05-[id number] 125 MG 00:00: 04:59 3D (125 mg Hospita capsule 00 :00 total) by l mouth 3 (three) times a day for 8 doses. vancomycin 2021-2021- No 125mg Q.[id number] Take 1 [facility] (Vancocin) 09-24 05-[id number] 125 MG 00:00: 04:59 3D (125 mg Hospita capsule 00 :00 total) by l mouth 3 (three) times a day for 8 doses. apixaban Yes 2.5mg Q.5D Take 2.5 Meth ramiro (ELIQUIS) 4-[address] 2.5 mg 18:55: mouth 2 Hospita tablet 03 (two) l times a day. apixaban Yes 2.5mg Q.5D Take 2.5 Meth ramiro (ELIQUIS) 4-[address] 2.5 mg 18:55: mouth 2 Hospita tablet 03 (two) l times a day. metoprolol 2021-2021- No 100mg Q.5D Take 100 M ethodi tartrate 4- 04-[address] (LOPRESSOR) 18:55: 00:00 mouth 2 Ho spita 100 mg 03 :00 (two) l tablet times a day. furosemide 2021- No 40mg Q.5D Take 40 mg [facility] (LASIX) 40 - 04-[address] mg tablet 18:55: 00:00 (two) Hospit a 03 :00 times a l day. metoprolol 2021- No 100mg Q.5D Take 100 M ethodi tartrate 4- 04-[address] (LOPRESSOR) 18:55: 00:00 mouth 2 Ho spita 100 mg 03 :00 (two) l tablet times a day. furosemide 2021- No 40mg Q.5D Take 40 mg [facility] (LASIX) 40 - 04-[address] mg tablet 18:55: 00:00 (two) Hospit a 03 :00 times a l day. BUMETanide 2021- No 1mg QD Take 1 mg M ethodi (BUMEX) 1 -16 09-[address] MG tablet 18:55: 00:00 daily. Hospi ta 55 :00 l BUMETanide 2021-0 2021- No 1mg QD Take 1 mg M ethodi (BUMEX) 1 4- 04-[address] MG tablet 18:55: 00:00 daily. Hospi ta 55 :00 l pramipexole 2021-0 Yes 1mg QD Take 1 mg M [...] mouth Hospita tablet 51 nightly. l isosorbide 2-0 Yes 60mg QD Take 60 mg M ethodi mononitrate 4-[address] (IMDUR) 60 18:55: daily. Hospi ta MG 24 hr 51 l tablet escitalopra 2-0 Yes 10mg QD Take 10 mg Methodi m (LEXAPRO) 4-[address] 10 MG 18:55: daily. Hospita tablet 51 l calcitrioL 2022-0 Yes .25ug QD Take 0.25 M ethodi (ROCALTROL) 4-[address] 0.25 MCG 18:55: mouth Hospita capsule 51 daily. l melatonin 2-0 Yes 10mg QD Take 10 mg Me thodi 10 mg 4-[address] capsule 18:55: daily. Hospita 51 l traZODone 2021-0 Yes 100mg QD Take 100 [facility] (DESYREL) 4-[address] 100 MG 18:55: mouth Hospita tablet 51 nightly. l isosorbide 2021-0 Yes 60mg QD Take 60 mg M ethodi mononitrate 4-[address] (IMDUR) 60 18:55: daily. Hospi ta MG 24 hr 51 l tablet escitalopra 2021-0 Yes 10mg QD Take 10 mg Methodi m (LEXAPRO) 4-[address] 10 MG 18:55: daily. Hospita tablet 51 l calcitrioL 2021-0 Yes .25ug QD Take 0.25 M ethodi (ROCALTROL) 4-[address] 0.25 MCG 18:55: mouth Hospita capsule 51 daily. l pramipexole 2021-0 Yes 1mg QD Take 1 mg M ethodi (MIRAPEX) 1 4-[address] MG tablet 18:55: nightly. [facility] 51 l hydrALAZINE 2021-0 2021- No 25mg Q.[id number] Take 1 [facility] (APRESOLINE 4-28 05-29 [id number] tablet (25 st ) 25 MG 00:00: 04:59 3D mg total) [facility] tablet 00 :00 by mouth l every 8 (eight) hours for 30 days. aspirin 81 2022-2021- No 81mg QD Chew 1 Meth ramiro mg chewable 09-16- tablet (81 s t tablet 00:00: 04:59 mg total) Hospi ta 00 :00 daily for l 30 days. carvediloL 2021-2021- No 25mg Q.5D Take 1 Meth ramiro (COREG) 25 09-16-29 tablet (25 st MG tablet 00:00: 04:59 mg total) Ho spita 00 :00 by mouth 2 l (two) times a day for 30 days. pantoprazol 2021-2021- No 40mg QD Take 1 Met hodi e 09-16- tablet (40 st (Protonix) 00:00: 04:59 mg total) H ospita 40 MG EC 00 :00 by mouth l tablet daily for 30 days. hydrALAZINE 2021-2021- No 25mg Q.[id number] Take 1 [facility] (APRESOLINE 09-16- [id number] tablet (25 st ) 25 MG 00:00: [...] times a day for 30 days. pantoprazol 2021-2021- No 40mg QD Take 1 Met hodi e 09-16- tablet (40 st (Protonix) 00:00: 04:59 mg total) H ospita 40 MG EC 00 :00 by mouth l tablet daily for 30 days. vancomycin 2021-2021- No 125mg Q.25D Take 1 Me thodi (Vancocin) 09-16- capsule st 125 MG 00:00: 04:59 (125 mg Hospita capsule 00 :00 total) by l mouth 4 (four) times a day for 8 days. vancomycin 2021- No 125mg Q.25D Take 1 Me thodi (Vancocin) 09-16 05-[address] 125 MG 00:00: 04:59 (125 mg Hospita capsule 00 :00 total) by l mouth 4 (four) times a day for 8 days. clonIDINE 2021- No .1mg QD Take 0.1 Met [facility]odi (CATAPRES) 08-14 03-[address] 0.1 MG 19:46: 00:00 mouth Hospita tablet 04 :00 nightly. l insulin 2021- No Inject Methodi LISPRO 08-14-[address] PROTAMIN-LI 19:46: 00:00 skin. [facility] SPRO 04 :00 l (HUMALOG 50-50) 100 unit/mL (50-50) suspension subcutaneou s vial insulin 2021- No 100U QD Inject 100 Met [facility]odi GLARGINE 08-14 03-[address] (LANTUS) 19:46: 00:00 under the Hos keo 100 unit/mL 04 :00 skin l injection daily. (vial) digOXIN 2021- No 125ug QD Take 125 Meth ramiro (LANOXIN) 08-14 03-[address] 125 mcg 19:46: 00:00 mouth Hospita (0.125 mg) 04 :00 daily. l tablet rOPINIRole 2021- No 1mg QD Take 1 mg M ethodi (REQUIP) 1 08-14-[address] MG tablet 19:46: 00:00 nightly. Hos keo 04 :00 l clonIDINE 2021- No .1mg QD Take 0.1 Met [facility]odi (CATAPRES) 08-14 03-[address] 0.1 MG 19:46: 00:00 mouth Hospita tablet 04 :00 nightly. l insulin 2021- No Inject Methodi LISPRO 08-14-[address] PROTAMIN-LI 19:46: 00:00 skin. [facility] SPRO 04 :00 l (HUMALOG 50-50) 100 unit/mL (50-50) suspension subcutaneou s vial insulin 100U QD Inject 100 Met hodi GLARGINE 08-14-[address] (LANTUS) 19:46: 00:00 under the Hos keo 100 unit/mL 04 :00 skin l injection daily. (vial) digOXIN 2021- No 125ug QD Take 125 Meth ramiro (LANOXIN) 08-14-[address] 125 mcg 19:46: 00:00 mouth Hospita (0.125 mg) 04 :00 daily. l tablet rOPINIRole No 1mg QD Take 1 mg M ethodi (REQUIP) 1 08-14-[address] MG tablet 19:46: 00:00 nightly. Hos keo 04 :00 l aspirin 81 2021- No 81mg QD Chew 1 Meth ramiro mg chewable 08-1428 tablet (81 s t tablet 00:00: 00:00 mg total) Hospi ta 00 :00 daily for l 30 days. aspirin 81 2021- No 81mg QD Chew 1 Meth ramiro mg chewable 08-14 tablet (81 s t tablet 00:00: 00:00 mg total) Hospi ta 00 :00 daily for l 30 days. metoprolol No 100mg Q.5D Take 100 M ethodi tartrate 08-13 03-[address] (LOPRESSOR) 19:46: 00:00 mouth 2 Ho spita 100 mg 31 :00 (two) l tablet times a day. hydrALAZINE No 100mg Q.[id number] Take 100 [facility] (APRESOLINE 08-13-[id number] ) 100 MG 19:46: 00:00 3D mouth 3 Hospi ta tablet 31 :00 (three) l times a day. apixaban No 2.5mg Q.5D Take 2.5 Met [facility] (ELIQUIS) -25 03-[address] 2.5 mg 19:46: 00:00 mouth 2 Hospita tablet 31 :00 (two) l times a day. potassium 2021- No 10meq Q.5D Take 10 Met [facility] chloride 3-25 03-[address] (K-DUR) 10 19:46: 00:00 mouth 2 Hos keo MEQ CR 31 :00 (two) l tablet times a day. cholecalcif 2021-2021- No 5000U QD Take 5,000 Methodi sophia, 3-25 03-[address] vitamin D3, 19:46: 00:00 mouth [facility] 1,000 unit 31 :00 daily. l tablet doxazosin 2021-2021- No 1{tbl} Q.5D Take 1 Met [facility] (CARDURA) 4 3-25 03-[address] MG tablet 19:46: 00:00 mouth 2 [facility] 31 :00 (two) l times a day. doxazosin 2021-2021- No 1{tbl} Q.5D Take 1 Met [facility] (CARDURA) 4 3-25 03-[address] MG tablet 19:46: 00:00 mouth 2 [facility] 31 :00 (two) l times a day. metoprolol 2021-2021- No 100mg Q.5D Take 100 M ethodi tartrate 3-25 03-[address] (LOPRESSOR) 19:46: 00:00 mouth 2 Ho spita 100 mg 31 :00 (two) l tablet times a day. hydrALAZINE 2021-2021- No 100mg Q.[id number] Take 100 [facility] (APRESOLINE 3-25 03-[id number] ) 100 MG 19:46: 00:00 3D mouth 3 Hospi ta tablet 31 :00 (three) l times a day. apixaban 2021-2021- No 2.5mg Q.5D Take 2.5 Met [facility]odi (ELIQUIS) 3-25 03-[address] 2.5 mg 19:46: 00:00 mouth 2 Hospita tablet 31 :00 (two) l times a day. potassium 2021-2021- No 10meq Q.5D Take 10 Met hodi chloride 3-25 03-[address] (K-DUR) 10 19:46: 00:00 mouth 2 Hos keo MEQ CR 31 :00 (two) l tablet times a day. cholecalcif 2021-2021- No 5000U QD Take 5,000 Methodi sophia, 3-25 03-[address] vitamin D3, 19:46: 00:00 mouth [facility] 1,000 unit 31 :00 daily. l tablet insulin 2021- No 12U QD Inject [facility] GLARGINE 25 -[address] (LANTUS) 00:00: 00:00 (12 Units Hos keo 100 unit/mL 00 :00 total) l injection under the (vial) skin nightly for 30 days. carvediloL 2021-2021- No 25mg Q.5D Take 1 Meth ramiro (COREG) 25 3-25 -28 tablet (25 st MG tablet 00:00: 00:00 mg total) Ho spita 00 :00 by mouth 2 l (two) times a day for 30 days. hydrALAZINE 2021-2021- No 50mg Q.[id number] Take 1 [facility] (APRESOLINE 3-25 - [id number] tablet (50 st ) 50 MG 00:00: 00:00 3D mg total) [facility] tablet 00 :00 by mouth l every 8 (eight) hours for 30 days. insulin 2021- No 12U QD Inject Methodi GLARGINE 08-13-[address] (LANTUS) 00:00: 00:00 (12 Units Hos keo 100 unit/mL 00 :00 total) l injection under the (vial) skin nightly for 30 days. carvediloL 0 2021- No 25mg Q.5D Take 1 Meth ramiro (COREG) 25 -25 -28 tablet (25 st MG tablet 00:00: 00:00 mg total) Ho spita 00 :00 by mouth 2 l (two) times a day for 30 days. hydrALAZINE 2021-0 2021- No 50mg Q.[id number] Take 1 [facility] (APRESOLINE 3-25 04-28 [id number] tablet (50 st ) 50 MG 00:00: 00:00 3D mg total) [facility] tablet 00 :00 by mouth l every 8 (eight) hours for 30 days. insulin 2021-0 2021- No 20U QD Inject 0.2 Met [facility]odi GLARGINE 1-15 02-15 mL (20 st (LANTUS) 00:00: 05:59 [...] every morning for 30 days. levalbutero No [id number] 1.25mg Q8H Take 3 mL Methodi l [...] evening for 30 days. insulin No 5U Q.[id number] Inject M ethodi LISPRO 06-04 [id number] 0.05 mL (5 st (ADMELOG) 00:00: 05:59 [...] to 30 days. budesonide 2020-05 Yes 3mg [id number] Take 3 mg [facility] 2-12 [id number] by mouth 3 st (ENTOCORT 00:00: 3D (three) Hospi ta EC) 3 mg 24 00 times a l hr capsule day. budesonide 2020-05 Yes 3mg [id number] Take 3 mg [facility] 2-12 [id number] by mouth 3 [facility] (ENTOCORT 00:00: 3D (three) Hospi ta EC) 3 mg 24 00 times a l hr capsule day. triamcinolo 2021- No 1{appli Q.5D Apply 1 Method[facility] ne 12-0725 cation} applicatio st (KENALOG) 00:00: [facility] 0[facility] % cream 00 :00 topically l 2 (two) times a day. Under breast and between legs triamcinolo 2021- No 1{appli Q.5D Apply 1 [facility] ne 12-07-25 cation} applicatio st (KENALOG) 00:00: 00:00 [facility] 0.1 % cream 00 :00 topically l 2 (two) times a day. Under breast and between legs allopurinol Yes [id number] 150mg Take 150 [facility] (ZYLOPRIM) 1-04 mg by ity of 100 mg 15:21: mouth [place] tablet 32 daily. Medical Branch CALCIUM Yes .25mg Take 0.25 Univ ers CARBONATE/V 1-04 mg by ity of ITAMIN D3 15:21: mouth [place] (VITAMIN 32 daily. Medical D-3 ORAL) Branch allopurinol Yes [id number] 150mg Take 150 [facility] (ZYLOPRIM) 1-04 mg by ity of 100 mg 15:21: mouth [place] tablet 32 daily. Medical Branch CALCIUM Yes .25mg Take 0.25 [facility] ers CARBONATE/V 1-04 mg by ity of ITAMIN D3 15:21: mouth [place] (VITAMIN 32 daily. Medical D-3 ORAL) Branch allopurinol Yes [id number] 150mg Take 150 [facility] (ZYLOPRIM) 1-04 mg by ity of 100 mg 15:21: mouth [place] tablet 32 daily. Medical Branch CALCIUM Yes .25mg Take 0.25 Univ ers CARBONATE/V 1-04 mg by ity of ITAMIN D3 15:21: mouth [place] (VITAMIN 32 daily. Medical D-3 ORAL) Branch allopurinol Yes [id number] 150mg Take 150 [facility] (ZYLOPRIM) 1-04 mg by ity of 100 mg 15:21: mouth [place] tablet 32 daily. Medical Branch CALCIUM Yes .25mg Take 0.25 Univ ers CARBONATE/V 1-04 mg by ity of ITAMIN D3 15:21: mouth [place] (VITAMIN 32 daily. Medical D-3 ORAL) Branch allopurinol Yes [id number] 150mg Take 150 [facility] (ZYLOPRIM) 1-04 mg by ity of 100 mg 15:21: mouth [place] tablet 32 daily. Medical Branch CALCIUM Yes .25mg Take 0.25 Univ ers CARBONATE/V 1-04 mg by ity of ITAMIN D3 15:21: mouth [place] (VITAMIN 32 daily. Medical D-3 ORAL) Branch allopurinol Yes [id number] 150mg Take 150 [facility] (ZYLOPRIM) 1-04 mg by ity of 100 mg 15:21: mouth [place] tablet 32 daily. Medical Branch allopurinol Yes [id number] 150mg Take 150 [facility] (ZYLOPRIM) 1-04 mg by ity of 100 mg 15:21: mouth [place] tablet 32 daily. Medical Branch CALCIUM Yes .25mg Take 0.25 Univ ers CARBONATE/V 1-04 mg by ity of ITAMIN D3 15:21: mouth [place] (VITAMIN 32 daily. Medical D-3 ORAL) Branch allopurinol Yes [id number] 150mg Take 150 [facility] (ZYLOPRIM) 1-04 mg [...] daily. Medical D-3 ORAL) Branch allopurinol Yes [id number] 150mg Take 150 [facility] (ZYLOPRIM) 1-04 mg by ity of 100 mg 15:21: mouth [place] tablet 32 daily. Medical Branch CALCIUM Yes .25mg Take 0.25 Univ ers CARBONATE/V 1-04 mg by ity of ITAMIN D3 15:21: mouth [place] (VITAMIN 32 daily. Medical D-3 ORAL) Branch allopurinol Yes [id number] 150mg Take 150 [facility] (ZYLOPRIM) 1-04 mg by ity of 100 mg 15:21: mouth [place] tablet 32 daily. Medical Branch CALCIUM Yes .25mg Take 0.25 Univ ers CARBONATE/V 1-04 mg by ity of ITAMIN D3 15:21: mouth [place] (VITAMIN 32 daily. Medical D-3 ORAL) Branch allopurinol Yes [id number] 150mg Take 150 [facility] (ZYLOPRIM) 1-04 mg by ity of 100 mg 15:21: mouth [place] tablet 32 daily. [facility] CALCIUM 2017-0 Yes .25mg Take 0.25 Univ ers CARBONATE/V 1-04 mg by ity of ITAMIN D3 15:21: mouth [place] (VITAMIN 32 daily. Medical D-3 ORAL) Branch furosemide Yes [id number] 40mg Take 40 mg Univers (LASIX) 20 1-04 by mouth ity o f mg tablet 15:19: daily. [address] furosemide Yes [id number] 40mg Take 40 mg Univers (LASIX) 20 1-04 by mouth ity o f mg tablet 15:19: daily. [address] furosemide Yes [id number] 40mg Take 40 mg Univers (LASIX) 20 1-04 by mouth ity o f mg tablet 15:19: daily. [address] furosemide Yes [id number] 40mg Take 40 mg Univers (LASIX) 20 1-04 by mouth ity o f mg tablet 15:19: daily. [address] furosemide Yes [id number] 40mg Take 40 mg [facility] (LASIX) 20 1-04 by mouth ity o f mg tablet 15:19: daily. [address] furosemide Yes [id number] 40mg Take 40 mg [facility] (LASIX) 20 1-04 by mouth ity o f mg tablet 15:19: daily. [address] furosemide Yes [id number] 40mg Take 40 mg [facility] (LASIX) 20 1-04 by mouth ity o f mg tablet 15:19: daily. [address] furosemide Yes [id number] 40mg Take 40 mg Univers (LASIX) 20 1-04 by mouth ity o f mg tablet 15:19: daily. [address] furosemide 2016-0 Yes [id number] 40mg Take 40 mg Univers (LASIX) 20 1-04 by mouth ity o f mg tablet 15:19: daily. [address] furosemide 2016-0 Yes [id number] 40mg Take 40 mg [facility] (LASIX) 20 1-04 by mouth ity o f mg tablet 15:19: daily. [address] furosemide 2016-0 Yes [id number] 40mg Take 40 mg Univers (LASIX) 20 1-04 by mouth ity o f mg tablet 15:19: daily. [address] Branch Golimumab 2017 Yes [id number] inject U nivers (SIMPONI) 1-04 under the ity o f 50 mg/0.5 15:18: skin. [place] mL 20 Infusion Medical injection every 8 Branch weeks for rheumatoid arthritis. Golimumab Yes [id number] inject U nivers (SIMPONI) 1-04 under the ity o f 50 mg/0.5 15:18: skin. [place] mL 20 Infusion Medical injection every 8 Branch weeks for rheumatoid arthritis. Golimumab Yes [id number] inject U nivers (SIMPONI) 1-04 under the ity o f 50 mg/0.5 15:18: skin. [place] mL 20 Infusion Medical injection every 8 Branch weeks for rheumatoid arthritis. Golimumab Yes [id number] inject U nivers (SIMPONI) 1-04 under the ity o f 50 mg/0.5 15:18: skin. [place] mL 20 Infusion Medical injection every 8 Branch weeks for rheumatoid arthritis. Golimumab Yes [id number] inject U nivers (SIMPONI) 1-04 under the ity o f 50 mg/0.5 15:18: skin. [place] mL 20 Infusion Medical injection every 8 Branch weeks for rheumatoid arthritis. Golimumab Yes [id number] inject U nivers (SIMPONI) 1-04 under the ity o f 50 mg/0.5 15:18: skin. [place] mL 20 Infusion Medical injection every 8 Branch weeks for rheumatoid arthritis. Golimumab Yes [id number] inject U nivers (SIMPONI) 1-04 under the ity o f 50 mg/0.5 15:18: skin. [place] mL 20 Infusion Medical injection every 8 Branch weeks for rheumatoid arthritis. Golimumab 2016- Yes [id number] inject U nivers (SIMPONI) 1-04 under the ity o f 50 mg/0.5 15:18: skin. [place] mL 20 Infusion Medical injection every 8 Branch weeks for rheumatoid arthritis. Golimumab Yes [id number] inject U nivers (SIMPONI) 1-04 under the ity o f 50 mg/0.5 15:18: skin. [place] mL 20 Infusion Medical injection every 8 Branch weeks for rheumatoid arthritis. Golimumab 2017-0 Yes [id number] inject U nivers (SIMPONI) 1-04 under the ity o f 50 mg/0.5 15:18: skin. [place] mL 20 Infusion Medical injection every 8 Branch weeks for rheumatoid arthritis. Golimumab 2017-0 Yes [id number] inject U nivers (SIMPONI) 1-04 under the ity o f 50 mg/0.5 15:18: skin. [place] mL 20 Infusion Medical injection every 8 Branch weeks for rheumatoid arthritis. linagliptin 2017 Yes [id number] Take by Univers (TRADJENTA) 1-04 mouth. ity [...] Medical times Branch daily with meals. linagliptin 2017- Yes [id number] Take by Univers (TRADJENTA) 1-04 mouth. ity of 5 mg tablet 14:33: [place] 03 Medical Branch apixaban 0 Yes 5mg Take [...] 2 [place] tablet 03 (two) Medical times [place] daily with meals. linagliptin 2017-0 Yes [id number] Take by Univers (TRADJENTA) 1-04 mouth. ity of 5 mg tablet 14:33: [place] [facility] linagliptin 2017-0 Yes [id number] Take by Univers (TRADJENTA) 1-04 mouth. ity of 5 mg tablet 14:33: [place] [facility] apixaban 2017-0 Yes 5mg Take [...] 2 [place] tablet 03 (two) Medical times [place] daily with meals. linagliptin 2017-0 Yes [id number] Take by Univers (TRADJENTA) 1-04 mouth. ity [...] times Branch daily with meals. linagliptin Yes [id number] Take by Univers (TRADJENTA) 1-04 mouth. ity of 5 mg tablet 14:33: [place] 03 Medical Branch apixaban 2017-0 Yes 5mg Take 5 mg Univ ers (ELIQUIS) 1-04 by mouth 2 ity of 2.5 mg 14:33: (two) [place] tablet 03 times Medical daily. Branch apixaban [id number] Yes 5mg Take 5 [...] Medical times Branch daily with meals. hydralAZINE Yes 50mg Take 50 mg Univers [...] Medical times Branch daily with meals. linagliptin 2016- Yes [id number] Take by Univers (TRADJENTA) 1-04 mouth. ity [...] 2 [place] tablet 03 (two) Medical times [place] daily with meals. linagliptin 2017-0 Yes [id number] Take by Univers (TRADJENTA) 1-04 mouth. ity [...] Branch daily with meals. linagliptin 2017-0 Yes [id number] Take by Univers (TRADJENTA) 1-04 mouth. ity [...] 2 [place] tablet 03 (two) Medical times [place] daily with meals. linagliptin 2017-0 Yes [id number] Take by Univers (TRADJENTA) 1-04 mouth. ity of 5 mg tablet 14:33: [place] [facility] apixaban 2017-0 Yes 5mg Take [...] 2 [place] tablet 03 (two) Medical times [place] daily with meals. linagliptin 2017-0 Yes [id number] Take by Univers (TRADJENTA) 1-04 mouth. ity of 5 mg tablet 14:33: [place] [facility] apixaban 2017-0 Yes 5mg Take [...] (two) Medical times Branch daily with meals. pramipexole Yes [id number] 2mg Take 2 [facility] (MIRAPEX) 1 1-04 tablets by [facility] y [place] mg tablet 00:00: [place] bed[place]. [facility] pramipexole Yes [id number] 2mg Take 2 [facility] (MIRAPEX) 1 1-04 tablets by [facility] y of mg tablet 00:00: [place] 00 bed[place]. [facility] pramipexole Yes [id number] 2mg Take 2 [facility] (MIRAPEX) 1 1-04 tablets by it y of mg tablet 00:00: [place] 00 bed[place]. [facility] pramipexole Yes [id number] 2mg Take 2 [facility] (MIRAPEX) 1 1-04 tablets by it y of mg tablet 00:00: [place] bed[place]. [facility] pramipexole Yes [id number] 2mg Take 2 [facility] (MIRAPEX) 1 1-04 tablets by it y of mg tablet 00:00: [place] bedtime. [facility] pramipexole Yes [id number] 2mg Take 2 [facility] (MIRAPEX) 1 1-04 tablets by it y of mg tablet 00:00: [place] bed[place]. [facility] pramipexole Yes [id number] 2mg Take 2 [facility] (MIRAPEX) 1 1-04 tablets by it y of mg tablet 00:00: [place] 00 bed[place]. [facility] pramipexole Yes [id number] 2mg Take 2 [facility] (MIRAPEX) 1 1-04 tablets by it y of mg tablet 00:00: [place] 00 bed[place]. [facility] pramipexole Yes [id number] 2mg Take 2 [facility] (MIRAPEX) 1 1-04 tablets by it y of mg tablet 00:00: [place] bed[place]. [facility] pramipexole Yes [id number] 2mg Take 2 [facility] (MIRAPEX) 1 1-04 tablets by it y of mg tablet 00:00: [place] 00 bedtime. [facility] pramipexole Yes [id number] 2mg Take 2 [facility] (MIRAPEX) 1 1-04 [...] Medical times Branch daily. glipiZIDE 2015-05 Yes [id number] 10mg Take 1 [place] XL 1-16 tablet by ity of (GLUCOTROL 00:00: mouth [place] XL) 10 mg 00 (two) Medical 24 hr times Branch tablet daily. glipiZIDE 2015-05 Yes [id number] 10mg Take 1 [facility] [place] XL 1-16 tablet by ity of (GLUCOTROL 00:00: mouth [place] XL) 10 mg 00 (two) Medical 24 hr times Branch tablet daily. glipiZIDE 2015-05 Yes [id number] 10mg Take 1 [facility] [place] XL 1-16 tablet by ity of (GLUCOTROL 00:00: mouth [place] XL) 10 mg 00 (two) Medical 24 hr times Branch tablet daily. glipiZIDE 2015-05 Yes [id number] 10mg Take 1 [facility] [place] XL 1-16 tablet by ity of (GLUCOTROL 00:00: mouth [place] XL) 10 mg 00 (two) Medical 24 hr times Branch tablet daily. glipiZIDE 2015-05 Yes [id number] 10mg Take 1 [facility] [place] XL 1-16 tablet by ity of (GLUCOTROL 00:00: mouth [place] XL) 10 mg 00 (two) Medical 24 hr times Branch tablet daily. glipiZIDE 2015-05 Yes [id number] 10mg Take 1 [facility] [place] XL 1-16 tablet by ity of (GLUCOTROL 00:00: mouth [place] XL) 10 mg 00 (two) Medical 24 hr times Branch tablet daily. glipiZIDE 2015-05 Yes [id number] 10mg Take 1 [facility] [place] XL 1-16 tablet by ity of (GLUCOTROL 00:00: mouth [place] XL) 10 mg 00 (two) Medical 24 hr times Branch tablet daily. glipiZIDE 2015-05 Yes [id number] 10mg Take 1 [facility] [place] XL 1-16 tablet by ity of (GLUCOTROL 00:00: mouth [place] XL) 10 mg 00 (two) Medical 24 hr times Branch tablet daily. glipiZIDE 2015-05 Yes [id number] 10mg Take 1 [facility] [place] XL 1-16 tablet by ity of (GLUCOTROL 00:00: mouth [place] XL) 10 mg 00 (two) Medical 24 hr times Branch tablet daily. glipiZIDE 2015-05 Yes [id number] 10mg Take 1 [facility] [place] XL 1-16 tablet by ity of (GLUCOTROL 00:00: mouth [place] XL) 10 mg 00 (two) Medical 24 hr times Branch tablet daily. glipiZIDE 2015-05 Yes [id number] 10mg Take 1 Un [place] XL 1-16 tablet by ity of (GLUCOTROL 00:00: mouth [place] XL) 10 mg 00 (two) Medical 24 hr times Branch tablet daily. atorvasta 2015-05 Yes [id number] 10mg Take 1 Univers n (LIPITOR) 1-02 tablet by ity of 10 mg 00:00: mouth at [place] tablet 00 bedtime. Medical Branch atorvastati 2015-05 Yes [id number] 10mg Take 1 Univers n (LIPITOR) 1-02 tablet by ity of 10 mg 00:00: mouth at [place] tablet 00 bedtime. [facility] Branch atorvastati 2015-05 Yes [id number] 10mg Take 1 Univers n (LIPITOR) 1-02 tablet by ity of 10 mg 00:00: mouth at [place] tablet 00 bedtime. [facility] Branch atorvastati 2015-05 Yes [id number] 10mg Take 1 Univers n (LIPITOR) 1-02 tablet by ity of 10 mg 00:00: mouth at [place] tablet 00 bedtime. Medical Branch atorvastati 2015-05 Yes [id number] 10mg Take 1 Univers n (LIPITOR) 1-02 tablet by ity of 10 mg 00:00: mouth at [place] tablet 00 bedtime. [facility] Branch atorvastati 2015-05 Yes [id number] 10mg Take 1 Univers n (LIPITOR) 1-02 tablet by ity of 10 mg 00:00: mouth at [place] tablet 00 bedtime. Medical Branch atorvastati 2015-05 Yes [id number] 10mg Take 1 Univers n (LIPITOR) 1-02 tablet by ity of 10 mg 00:00: mouth at [place] tablet [address] [facility] 2015-05 Yes [id number] 10mg Take 1 Univers n (LIPITOR) 1-02 tablet by ity of 10 mg 00:00: mouth at [place] tablet [address] [facility] 2015-05 Yes [id number] 10mg Take 1 Univers n (LIPITOR) 1-02 tablet by ity of 10 mg 00:00: mouth at [place] tablet [address] [facility] 2015-05 Yes [id number] 10mg Take 1 Univers n (LIPITOR) 1-02 tablet by ity of 10 mg 00:00: mouth at [place] tablet [address] [facility] 2015-05 Yes [id number] 10mg Take 1 Univers n (LIPITOR) 1-02 tablet by ity of 10 mg 00:00: mouth at [place] tablet 00 bedtime. [facility] Branch Immunizations Ordered Immunization Filled Immunization Date Status Commen ts Source Name Name PFIZER COVID-19 MRNA 2021-06-10 Completed [facility] VACCINATION 00:00:00 [facility] PFIZER COVID-19 MRNA 2021-06-10 Completed [facility] VACCINATION 00:00:00 [facility] PFIZER COVID-19 MRNA 2020-07-09 Completed [facility] VACCINATION 00:00:00 [facility] PFIZER COVID-19 MRNA 2020-07-09 Completed [facility] VACCINATION 00:00:00 [facility] PFIZER COVID-19 MRNA 2020-06-18 Completed [facility] VACCINATION 00:00:00 [facility] PFIZER COVID-19 MRNA 2020-06-18 Completed [facility] VACC[facility]ATION 00:00:00 [facility] Pneumococcal 2020-04-29 Completed [facility] Polysaccharide 00:00:00 [facility] Zoster 2020-04-29 Completed [facility] 00:[facility]:00 [facility] Pneumococcal 2020-04-29 Completed [facility] Polysaccharide 00:00:00 [facility] Zoster 2020-04-29 Completed [facility] 00:00:00 [facility] Pneumococcal 2019-05-13 Completed [facility] Conjugate 13-Valent 00:00:00 Hospi true Pneumococcal 2019-05-13 Completed [facility] Conjugate 13-[facility]ent 00:00:00 Hospi true FLUCELVAX QUAD PF 2019-03-[address] 00:00:00 Hospital FLUCELVAX QUAD PF 2019-03-[address] 00:00:00 Hospital FLUZONE HIGH-DOSE PF 2017-03-09 Completed [facility] 00:00:00 Hospital FLUZONE HIGH-DOSE PF 2017-03-09 Completed [facility] 00:00:00 Hospital Influenza Trivalent 2016-05-21 Completed [facility] 00:00:00 Hospital Influenza Trivalent 2016-05-21 Completed [facility] 00:00:00 [facility] Influenza, 2016-02-03 Completed [facility] Unspecified 00:00:00 [facility] Pneumococcal 2016-02-03 Completed [facility] Conjugate 13-Valent 00:00:00 Hospi true Tdap 2016-02-03 Completed [facility] 00:00:00 [facility] Influenza, 2016-02-03 Completed [facility] Unspecified 00:00:00 [facility] Pneumococcal 2016-02-03 Completed [facility] Conjugate 13-Valent 00:00:00 Hospi true Tdap 2016-02-03 Completed [facility] 00:00:00 [facility] Influenza Virus 2016-02-03 Completed Universit y of Vaccine 00:00:00 [facility] Pneumococcal 13 2016-02-03 Completed Universit y of Conjugate, PCV13 00:00:00 [facility] [place] [facility] dical (Prevnar 13) Branch TDAP 2016-02-03 Completed University of 00:00:00 [facility] Influenza Virus 2016-02-03 Completed Universit y of Vaccine 00:00:00 [facility] Pneumococcal 13 2016-02-03 Completed Universit y of Conjugate, PCV13 00:00:00 [facility] [place] [facility] dical (Prevnar 13) Branch TDAP 2016-02-03 Completed University of 00:00:00 [facility] Influenza Virus 2016-02-03 Completed Universit y of Vaccine 00:00:00 [facility] Pneumococcal 13 2016-02-03 Completed Universit y of Conjugate, PCV13 00:00:00 [facility] [place] [facility] dical (Prevnar 13) Branch TDAP 2016-02-03 Completed University of 00:00:00 [facility] Influenza Virus 2016-02-03 Completed Universit y of Vaccine 00:00:00 [facility] Pneumococcal 13 2016-02-03 Completed Universit y of Conjugate, PCV13 00:00:00 [facility] [place] [facility] dical (Prevnar 13) Branch AP 2016-02-03 Completed University of 00:00:00 [facility] Influenza Virus 2016-02-03 Completed Universit y of Vaccine 00:00:00 [facility] Pneumococcal 13 2016-02-03 Completed Universit y of Conjugate, PCV13 00:00:00 [facility] [place] [facility] dical (Prevnar 13) Branch [facility] 2016-02-03 Completed University of 00:00:00 [facility] Influenza Virus 2016-02-03 Completed Universit y of Vaccine 00:00:00 [facility] Pneumococcal 13 2016-02-03 Completed Universit y of Conjugate, PCV13 00:00:00 [facility] [place] [facility] dical (Prevnar 13) Branch [facility] 2016-02-03 Completed University of 00:00:00 [facility] Influenza Virus 2016-02-03 Completed Universit y of Vaccine 00:00:00 [facility] Pneumococcal 13 2016-02-03 Completed Universit y of Conjugate, PCV13 00:00:00 [facility] [place] [facility] dical (Prevnar 13) Branch [facility] 2016-02-03 Completed University of 00:00:00 [facility] Influenza Virus 2016-02-03 Completed Universit y of Vaccine 00:00:00 [facility] Pneumococcal 13 2016-02-03 Completed Universit y of Conjugate, PCV13 00:00:00 [facility] [place] [facility] dical (Prevnar 13) Branch [facility] 2016-02-03 Completed University of 00:00:00 [facility] Influenza Virus 2016-02-03 Completed Universit y of Vaccine 00:00:00 [facility] Pneumococcal 13 2016-02-03 Completed Universit y of Conjugate, PCV13 00:00:00 [facility] [place] [facility] dical (Prevnar 13) Branch [facility] 2016-02-03 Completed University of 00:00:00 [facility] Influenza Virus 2016-02-03 Completed Universit y of Vaccine 00:00:00 [facility] Pneumococcal 13 2016-02-03 Completed Universit y of Conjugate, PCV13 00:00:00 [facility] [place] [facility] dical (Prevnar 13) Branch [facility] 2016-02-03 Completed University of 00:00:00 [facility] Influenza Virus 2016-02-03 Completed Universit y of Vaccine 00:00:00 [facility] Pneumococcal 13 2016-02-03 Completed Universit y of Conjugate, PCV13 00:00:00 [facility] [place] [facility] dical (Prevnar 13) Branch [facility] 2016-02-03 Completed University of 00:00:00 [facility] Influenza, 2015-01-05 Completed [facility] Unspecified 00:00:00 [facility] Pneumococcal 2015-01-05 Completed [facility] Conjugate 13-Valent 00:00:00 Hospi true Td 2015-01-05 Completed [facility] 00:[facility]:00 [facility] Influenza, 2015-01-05 Completed [facility] Unspecified 00:00:00 [facility] Pneumococcal 2015-01-05 Completed [facility] Conjugate 13-Valent 00:00:00 Hospi true Td 2015-01-05 Completed [facility] 00:[facility]:00 [facility] Influenza Virus 2015-01-05 Completed Universit y of Vaccine 00:00:00 [facility] Pneumococcal 13 2015-01-05 Completed Universit y of Conjugate, PCV13 00:00:00 [facility] [place] [facility] dical (Prevnar 13) Branch Tetanus/Diptheria 2015-01-05 Completed Univers ity of 00:00:00 [facility] Influenza Virus 2015-01-05 Completed Universit y of Vaccine 00:00:00 [facility] Pneumococcal 13 2015-01-05 Completed Universit y of Conjugate, PCV13 00:00:00 [facility] [place] [facility] dical (Prevnar 13) Branch Tetanus/Diptheria 2015-01-05 Completed Univers ity of 00:00:00 [facility] Influenza Virus 2015-01-05 Completed Universit y of Vaccine 00:00:00 [facility] Pneumococcal 13 2015-01-05 Completed Universit y of Conjugate, PCV13 00:00:00 [facility] [place] [facility] dical (Prevnar 13) Branch Tetanus/Diptheria 2015-01-05 Completed Univers ity of 00:00:00 [facility] Influenza Virus 2015-01-05 Completed Universit y of Vaccine 00:00:00 [facility] Pneumococcal 13 2015-01-05 Completed Universit y of Conjugate, PCV13 00:00:00 [facility] [place] [facility] dical (Prevnar 13) Branch Tetanus/Diptheria 2015-01-05 Completed Univers ity of 00:00:00 [facility] Influenza Virus 2015-01-05 Completed Universit y of Vaccine 00:00:00 [facility] Pneumococcal 13 2015-01-05 Completed Universit y of Conjugate, PCV13 00:00:00 [facility] [place] [facility] dical (Prevnar 13) Branch Tetanus/Diptheria 2015-01-05 Completed Univers ity of 00:00:00 [facility] Influenza Virus 2015-01-05 Completed Universit y of Vaccine 00:00:00 [facility] Pneumococcal 13 2015-01-05 Completed Universit y of Conjugate, PCV13 00:00:00 [facility] [place] [facility] dical (Prevnar 13) Branch Tetanus/Diptheria 2015-01-05 Completed Univers ity of 00:00:00 [facility] Influenza Virus 2015-01-05 Completed Universit y of Vaccine 00:00:00 [facility] Pneumococcal 13 2015-01-05 Completed Universit y of Conjugate, PCV13 00:00:00 [facility] [place] [facility] dical (Prevnar 13) Branch Tetanus/Diptheria 2015-01-05 Completed Univers ity of 00:00:00 [facility] Influenza Virus 2015-01-05 Completed Universit y of Vaccine 00:00:00 [facility] Pneumococcal 13 2015-01-05 Completed Universit y of Conjugate, PCV13 00:00:00 [facility] [place] [facility] dical (Prevnar 13) Branch Tetanus/Diptheria 2015-01-05 Completed Univers ity of 00:00:00 [facility] Influenza Virus 2015-01-05 Completed Universit y of Vaccine 00:00:00 [facility] Pneumococcal 13 2015-01-05 Completed Universit y of Conjugate, PCV13 00:00:00 [facility] [place] [facility] dical (Prevnar 13) Branch Tetanus/Diptheria 2015-01-05 Completed [facility] 00:00:00 [facility] Influenza Virus 2015-01-05 Completed [facility] Vaccine 00:00:00 [facility] Pneumococcal 13 2015-01-05 Completed [facility] Conjugate, PCV13 00:00:00 [facility] dical (Prevnar 13) Branch Tetanus/Diptheria 2015-01-05 Completed [facility] 00:00:00 [facility] Influenza Virus 2015-01-05 Completed [facility] Vaccine 00:00:00 [facility] Pneumococcal 13 2015-01-05 Completed [facility] Conjugate, PCV13 00:00:00 [facility] dical (Prevnar 13) Branch Tetanus/Diptheria 2015-01-05 Completed [facility] 00:00:00 [facility] Pneumococcal 2013-05-21 Completed [facility] Conjugate 00:00:00 Hospital Tdap 2013-05-21 Completed [facility] 00:00:00 [facility] Pneumococcal 2013-05-21 Completed [facility] Conjugate 00:00:00 Hospital Tdap 2013-05-21 Completed [facility] 00:00:00 [facility] H1N1 All Forms 2009-04-20 Completed [facility] 00:00:00 Hospital H1N1 All Forms 2009-04-20 Completed [facility] 00:00:00 Hospital Vital Signs Vital Name Observation Time Observation Value Comments Source HEIGHT 2022-01-14 10:00:00 162.6 cm WEIGHT 2022-01-14 10:00:00 68.04 kg HEIGHT 2022-01-14 10:00:00 162.6 cm WEIGHT 2022-01-14 10:00:00 68.04 kg HEIGHT 2022-01-14 10:00:00 162.6 cm WEIGHT 2022-01-14 10:00:00 68.04 kg Systolic blood 2022-01-18 12:00:00 117 mm[Hg] [facility] Diastolic blood 2022-01-18 12:00:00 51 mm[Hg] [facility] Heart rate 2022-01-18 12:00:00 80 /min [facility] Body temperature 2022-01-18 12:00:00 36.78 Mena [facility] Respiratory rate 2022-01-18 12:00:00 18 /min [facility] Oxygen saturation in 2022-01-18 12:00:00 100 /min [facility] Arterial blood by Medical Ce nter Pulse oximetry Body height 2022-01-14 10:00:00 162.6 cm [facility] Body weight 2022-01-14 10:00:00 68.04 kg [facility] BMI 2022-01-14 10:00:00 25.75 kg/m2 [facility] Systolic blood 2021-09-16 23:24:00 145 mm[Hg] [facility] pressure Diastolic blood 2021-09-16 23:24:00 78 mm[Hg] [facility] pressure Heart rate 2021-09-16 23:00:00 80 /min [facility] Respiratory rate 2021-09-16 23:00:00 19 /min [facility] Body temperature 2021-09-16 19:25:00 36.28 Mena [facility] Oxygen saturation in 2021-09-16 15:57:32 98 /min [facility] Arterial blood by Pulse oximetry Body height 2021-09-07 12:58:00 162.6 cm [facility] Body weight 2021-09-07 12:58:00 67.3 kg [facility] BMI 2021-09-07 12:58:00 25.47 kg/m2 [facility] Procedures Procedure Date / Time Performing Source Performed Clinician EXTERNAL PROVIDER RECORDS 2022-07-05 Doctor [facility] 06:01:00 Unassigned, No [facility] EXTERNAL PROVIDER RECORDS 2022-04-01 Doctor [facility] 06:01:00 Unassigned, No [facility] POCT-GLUCOSE METER 2022-01-[address] [facility] 12:10:00 [facility] HEMODIALYSIS INPATIENT 2022-01-[address] [facility] 07:52:23 [facility] BASIC METABOLIC PANEL 2022-01-18 Reji[facility]uro [facility] 06:09:00 [facility] POCT-GLUCOSE METER 2022-01-17 Reji, Mauro [facility] 19:46:00 [facility] POCT-GLUCOSE METER 2022-01-17 Reji, Mauro [facility] 17:06:00 [facility] POCT-GLUCOSE METER 2022-01-17 Reji, Mauro [facility] 12:13:00 Medical Center POCT-GLUCOSE METER 2022-01-17 Reji, Mauro [facility] 08:29:00 [facility] BASIC METABOLIC PANEL 2022-01-17 Reji, [facility]uro [facility] 03:23:00 [facility] POCT-GLUCOSE METER 2022-01-16 Reji, Mauro [facility] 20:16:00 Medical Center POCT-GLUCOSE METER 2022-01-16 Reji, Mauro [facility] 15:46:00 Medical Center POCT-GLUCOSE METER 2022-01-16 Reji, Mauro [facility] 11:46:00 [facility] Center POCT-GLUCOSE METER 2022-01-16 Reji, Mauro [facility] 07:47:00 [facility] Center POCT-GLUCOSE METER 2022-01-15 Reji, Mauro [facility] 20:13:00 Medical Center POCT-GLUCOSE METER 2022-01-15 Reji, Mauro [facility] 17:54:00 Medical Center POCT-GLUCOSE METER 2022-01-15 Reji, Mauro [facility] 12:31:00 [facility] HEMODIALYSIS INPATIENT 2022-01-[address] [facility] 10:06:42 [facility] POCT-GLUCOSE METER 2022-01-15 Reji, Mauro [facility] 07:32:00 [facility] BASIC METABOLIC PANEL 2022-01-15 Reji, Maurojuliocesar [facility] 03:58[facility]00 [facility] POCT-GLUCOSE METER 2022-01-14 [facility], Mauro [facility] 20:42:00 [facility] POCT-GLUCOSE METER 2022-01-14 [facility], Mauro [facility] 15:38:00 [facility] SARS-COV2/RT-PCR ([facility]) 2022-01-14 [facility], Munirae r [facility] 14:57:00 [facility] XR CHEST 1 VIEW PORTABLE / BEDSIDE 2022-01-14 [facility], Surinde r [facility] 14:38:00 [facility] POCT-GLUCOSE METER 2022-01-14 [facility], Mauro [facility] 12:02:00 [facility] IR CENTRAL VENOUS CATHETER 2022-01-14 [facility], Mauro [facility] PLACEMENT (JUGULAR OR FEMORAL) 11:14:00 [facility] POCT-GLUCOSE METER 2022-01-14 [facility], Mauro [facility] 08:24:00 [facility] CBC (HEMOGRAM ONLY) 2022-01-14 [facility], Mauro [facility] 04:11:00 [facility] BASIC METABOLIC PANEL 2022-01-14 [facility], Maurojuliocesar [facility] 04:11[facility]00 [facility] POCT-GLUCOSE METER 2022-01-13 [facility], Mauro [facility] 19:39:00 [facility] POCT-GLUCOSE METER 2022-01-13 [facility], Mauro [facility] 16:37:00 [facility] POCT-GLUCOSE METER 2022-01-13 [facility], Mauro [facility] 13:51:00 [facility] BLOOD GAS, ARTERIAL 2022-01-13 [facility], Mauro [facility] 08:41:00 [facility] POCT-GLUCOSE METER 2022-01-13 [facility], Mauro [facility] 08:25:[address] [facility] CT BRAIN WITHOUT IV CONTRAST 2022-01-13 Reji, Mauro [facility] 07:50:00 [facility] COMPREHENSIVE METABOLIC PANEL 2022-01-13 Reji, [facility] 07:29:00 [facility] TROPONIN I 2022-01-13 Reji, Mauro [facility] 07:29:00 [facility] TSH/FREE T4 IF INDICATED 2022-01-13 Reji, Mauro [facility] 07:29:00 [facility] CBC W/PLT COUNT & AUTO 2022-01-13 Reji, [facility]uro [facility] DIFFERENTIAL 07:29:00 [facility] CBC W/PLT COUNT & AUTO 2022-01-13 [facility], Mauro [facility] DIFFERENTIAL 07:29:00 [facility] POCT-GLUCOSE METER 2022-01-13 Reji, Mauro [facility] 07:04:00 [facility] POCT-GLUCOSE METER 2022-01-13 [facility], Mauro [facility] 06:21:00 [facility] POCT-GLUCOSE METER 2022-01-12 Reji, Mauro [facility] 20:53:00 [facility] POCT-GLUCOSE METER 2022-01-12 Reji, Mauro [facility] 19:20:00 [facility] POCT-GLUCOSE METER 2022-01-12 Reji, Mauro [facility] 18:50:00 [facility] POCT-GLUCOSE METER 2022-01-12 Reji, Mauro [facility] 17:58:00 [facility] IR TUNNELED CATHETER INSERTION 2022-01-[address] [facility] 16:30:00 [facility] POCT-GLUCOSE METER 2022-01-12 Reji, Mauro [facility] 12:08:00 [facility] POCT-GLUCOSE METER 2022-01-12 [facility] Montoya [facility] 08:49:00 [facility] CBC W/PLT COUNT & AUTO 2022-01-12 Deirdre, Annalee Montoya [facility] DIFFERENTIAL 05:39:00 [facility] BASIC METABOLIC PANEL 2022-01-12 [facility], Annalee Montoya [facility] 05:39:00 [facility] MAGNESIUM 2022-01-12 Maida, Annalee Montoya [facility] 05:39:00 [facility] PHOSPHORUS 2022-01-12 Maida, Annalee Jan [facility] 05:39:00 [facility] PROTHROMBIN TIME/INR 2022-01-12 Shieh, Annalee Jan [facility] 05:39:00 [facility] APTT 2022-01-12 Shieh, Annalee Montoya [facility] 05:39:00 [facility] CBC W/PLT COUNT & AUTO 2022-01-12 Shieh, Annalee Montoya [facility] DIFFERENTIAL 05:39:00 [facility] (MANUAL DIFFERENTIAL) 2022-01-12 [facility] Mont[facility] 05:39:00 [facility] POCT-GLUCOSE METER 2022-01-11 [facility]e Jan [facility] 19:49:00 [facility] POCT-GLUCOSE METER 2022-01-11 [facility], Annalee Jan [facility] 17:57:00 [facility] POCT-GLUCOSE METER 2022-01-11 [facility], Annalee Jan [facility] 12:37:00 [facility] HEMODIALYSIS INPATIENT 2022-01-[address] [facility] 12:29:37 [facility] POCT-GLUCOSE METER 2022-01-11 [facility], Annalee Jan [facility] 07:49:00 [facility] POCT-GLUCOSE METER 2022-01-10 [facility], Annalee Jan [facility] 21:16:00 [facility] POCT-GLUCOSE METER 2022-01-10 [facility], Annalee Jan [facility] 15:24:00 [facility] IR TUNNEL CATHETER EXCHANGE 2022-01-[address] [facility] 11:23:00 [facility] POCT-GLUCOSE METER 2022-01-10 [facility], Annalee Montoya [facility] 11:21:00 [facility] CBC W/PLT COUNT & AUTO 2022-01-10 [facility], Annalee C [facility] DIFFERENTIAL 04:13:00 [facility] BASIC METABOLIC PANEL 2022-01-10 [facility] 04:13:00 [facility] MAGNESIUM 2022-01-10 [facility]e Montoya [facility] 04:13:00 [facility] PHOSPHORUS 2022-01-10 [facility], Annalee Montoya [facility] 04:13:00 [facility] APTT 2022-01-[address] [facility] 04:13:00 [facility] CBC W/PLT COUNT & AUTO 2022-01-10 Shieh, Annalee Montoya [facility] DIFFERENTIAL 04:13:00 [facility] POCT-GLUCOSE METER 2022-01-09 Shieh, Annalee Montoya [facility] 21:15:00 [facility] APTT 2022-01-09 Shieh, Annalee Jan [facility] 19:08:00 [facility] Center POCT-GLUCOSE METER 2022-01-09 Shieh, Annalee Montoya [facility] 17:02:00 [facility] POCT-GLUCOSE METER 2022-01-09 Shieh, Annalee Montoya [facility] 11:22:00 [facility] APTT 2022-01-09 Shieh, Annalee Jan [facility] 09:44:00 [facility] POCT-GLUCOSE METER 2022-01-09 Shieh, Annalee Jan [facility] 07:19:00 [facility] POCT-GLUCOSE METER 2022-01-09 Shieh, Annalee Montoya [facility] 05:05:00 [facility] CBC W/PLT COUNT & AUTO 2022-01-09 Shieh, Annalee Montoya [facility] DIFFERENTIAL 04:57:00 [facility] BASIC METABOLIC PANEL 2022-01-09 Shieh, Annalee Jan [facility] 04:57:00 [facility] MAGNESIUM 2022-01-09 Shieh, Annalee Montoya [facility] 04:57:00 [facility] PHOSPHORUS 2022-01-09 Shieh, Annalee Jan [facility] 04:57:00 [facility] CBC W/PLT COUNT & AUTO 2022-01-09 Shieh, Annalee Montoya [facility] DIFFERENTIAL 04:57:00 [facility] APTT 2022-01-09 Shieh, Annalee Montoya [facility] 00:34:00 [facility] POCT-GLUCOSE METER 2022-01-08 Shieh, Annalee Jan [facility] 16:49:00 [facility] APTT 2022-01-08 Shieh, Annalee Montoya [facility] 16:13:00 [facility] HEMODIALYSIS INPATIENT 2022-01-08 Lexie, Ahmed [facility] 15:47:52 [facility] HEPATITIS B SURFACE ANTIGEN 2022-01-08 Lexie, Ahmed [facility] 15:40:00 [facility] HEPATITIS B SURFACE ANTIBODY 2022-01-[address] [facility] 15:40:00 [facility] POCT-GLUCOSE METER 2022-01-[address] [facility] 12:18:00 [facility] POCT-GLUCOSE METER 2022-01-08 Deirdreartur, Annalee C [facility] 07:59:00 [facility] CBC W/PLT COUNT & AUTO 2022-01-08 Shieh, Annalee Montoya [facility] DIFFERENTIAL 05:27:00 [facility] BASIC METABOLIC PANEL 2022-01-08 [facility], Annalee Montoya [facility] 05:27:00 [facility] MAGNESIUM 2022-01-08 [facility], Annalee Montoya [facility] 05:27:00 [facility] PHOSPHORUS 2022-01-08 [facility], Annalee Montoya [facility] 05:27:00 [facility] HEMOGLOBIN A1C 2022-01-08 [facility], Annalee Montoya [facility] 05:27:00 [facility] CBC W/PLT COUNT & AUTO 2022-01-08 [facility], Annalee Montoya [facility] DIFFERENTIAL 05:27:00 [facility] APTT 2022-01-[address] [facility] 05:26:00 [facility] POCT-GLUCOSE METER 2022-01-07 [facility] Mont[facility] 21:01:00 [facility] APTT 2022-01-07 Roman, Joanna [facility] 21:00:00 [facility] CARDIAC CATH REPORT - SCAN 2022-01-07 Provider, Default [facility] 00:00:[address] [facility] EKG-SCANNED 2022-01-07 Provider, Default [facility] 00:00:[address] [facility] HEMODIALYSIS 2021-09-16 Marycarmen Matson 20:36:27 [facility] POC GLUCOSE 2021-09-16 Corrine Osuna 15:59:00 [facility] POC GLUCOSE 2021-09-16 Corrine Osuna 11:10:00 [facility] POC GLUCOSE 2021-09-16 Corrine Osuna 01:24:00 [facility] POC GLUCOSE 2021-09-15 Corrine sOuna 20:54:00 Hospital POC GLUCOSE 2021-09-15 Emiliano-Corrine Dozier 16:27:00 Hospital POC GLUCOSE 2021-09-15 Emiliano-Corrine Dozier 12:04:00 Hospital POC GLUCOSE 2021-09-15 Emiliano-Corrine Dozeir 11:16:00 Hospital POC GLUCOSE 2021-09-15 Emiliano-Corrine Dozier 01:21:00 Hospital POC GLUCOSE 2021-09-14 Emiliano-Corrine Dozier 21:57:00 Hospital POC GLUCOSE 2021-09-14 Corrine Osuna 17:17:00 Hospital IR TUNNELED DIALYSIS CATHETER 2021-09-14 Michoacano Owens thodist REPLACEMENT/EXCHANGE 13:59:03 [facility] HEMODIALYSIS 2021-09-14 Marycarmen Matson 12:42:40 [facility] POC GLUCOSE 2021-09-14 Corrine Osuna 11:19:00 [facility] BASIC METABOLIC PANEL 2021-09-14 FlorenceMarycarmen jauregui 09:34:00 [facility] ESTIMATED GFR 2021-09-14 FlorenceMarycarmen jauregui 09:34:00 [facility] ZZCOVID-19 ANTI-SPIKE IGG ANTIBODY 2021-09-14 Michoacano Owens TITER 03:25:00 [facility] TYPE AND SCREEN 2021-09-14 Michoacano Owens 03:25:00 [facility] ZZCOVID-19 SEROLOGY PATIENT 2021-09-14 Michoacano Owens odist SURVEILLANCE 03:25:00 [facility] POC GLUCOSE 2021-09-14 Corrine Osuna 01:33:00 Hospital POC GLUCOSE 2021-09-13 Corrine Osuna 23:43:00 Hospital SURGICAL PATHOLOGY REQUEST 2021-09-13 Corrine Osuna dist 20:11:00 Hospital ESOPHAGOGASTRODUODENOSCOPY (EGD) 2021-09-13 Marycarmen Lopez 19:58:00 [facility] POC GLUCOSE 2021-09-13 Al-LahiqCorrine [facility] 17:23:00 Hospital POC GLUCOSE 2021-09-13 Al-Lahiq, Corrine [facility] 11:26:00 Hospital BASIC METABOLIC PANEL 2021-09-13 Florenceahshania [facility] 10:25:00 [facility] CBC WITH PLATELET AND DIFFERENTIAL 2021-09-13 Al-Whit Dozier [facility] 10:25:00 Hospital PARTIAL THROMBOPLASTIN TIME (PTT) 2021-09-13 Al-Lahiq, Corrine [facility] 10:25:00 Hospital ESTIMATED GFR 2021-09-13 Dano [facility] 10:25:00 [facility] PROTHROMBIN TIME WITH INR 2021-09-13 Emiliano-Corrine Dozier Method ist 10:25:00 Hospital POC GLUCOSE 2021-09-13 Al-Lahiq, Corrine [facility] 00:48:00 Hospital ECG 12-LEAD 2021-09-12 Marycarmen Lopez 23:22:14 [facility] POC GLUCOSE 2021-09-12 Al-Lahiq, Corrine [facility] 22:53:00 Hospital POC GLUCOSE 2021-09-12 Al-Lahiq, Corrine [facility] 21:49:00 Hospital POC GLUCOSE 2021-09-12 Al-Lahiq, Corrine [facility] 16:57:00 Hospital POC GLUCOSE 2021-09-12 Al-Lahiq, Corrine [facility] 11:26:00 Hospital POC GLUCOSE 2021-09-12 Al-Lahiq, Corrine [facility] 11:01:00 Hospital BASIC METABOLIC PANEL 2021-09-12 Marycarmen Matson 09:15:00 [facility] ESTIMATED GFR 2021-09-12 Dano [facility] 09:15:00 [facility] HEMODIALYSIS 2021-09-12 Marycarmen Matson 02:06:24 [facility] POC GLUCOSE 2021-09-12 Al-Lahiq, Corrine [facility] 01:05:00 Hospital POC GLUCOSE 2021-09-11 Al-Lahiq, Corrine [facility] 21:53:00 Hospital POC GLUCOSE 2021-09-11 Corrine Osuna 16:41:00 Hospital HEMODIALYSIS 2021-09-11 Marycarmen Matson 15:53:24 [facility] POC GLUCOSE 2021-09-11 Corrine Osuna 11:14:00 [facility] ANTI-SPIKE IGG ANTIBODY 2021-09-11 Whit Osuna [facility] TITER 09:40:00 Hospital BASIC METABOLIC PANEL 2021-09-11 Marycarmen Matson 09:40:00 [facility] HEMOGLOBIN A1C 2021-09-11 Corrine Osuna 09:40:00 [facility]19 SEROLOGY PATIENT 2021-09-11 Corrine Osuna Meth oddiya SURVEILLANCE 09:40:00 Hospital CBC WITH PLATELET AND DIFFERENTIAL 2021-09-11 Whit Osunaist 09:40:00 Hospital ESTIMATED GFR 2021-09-11 Marycarmen Matson 09:40:00 [facility] POC GLUCOSE 2021-09-11 Corrine Osuna 00:39:00 Hospital POC GLUCOSE 2021-09-10 Emiliano-Corrine Dozier 21:14:00 Hospital CORTISOL LEVEL, AM 2021-09-10 Corrine Osuna 16:58:00 Hospital POC GLUCOSE 2021-09-10 Emiliano-Corrine Dozier 15:59:00 Hospital POC GLUCOSE 2021-09-10 Corrine Osuna 11:26:00 Hospital BASIC METABOLIC PANEL 2021-09-10 Marycarmen Matson 09:55:00 [facility] ESTIMATED GFR 2021-09-10 Marycarmen Matson 09:55:00 [facility] POC GLUCOSE 2021-09-10 Emiliano-Corrine Dozier 00:18:00 Hospital POC GLUCOSE 2021-09-09 Al-HamzahqCorrine 21:28:00 Hospital POC GLUCOSE 2021-09-09 Emiliano-HamzahqCorrine 16:28:[address] HEAD WO CONTRAST 2021-09-09 Corrine Osuna 14:48:37 Hospital HEMODIALYSIS 2021-09-09 Marycarmen Matson 14:08:47 [facility] POC GLUCOSE 2021-09-09 Corrine Osuna 11:30:00 Hospital BASIC METABOLIC PANEL 2021-09-09 Marycarmen Matson 10:45:00 [facility] ESTIMATED GFR 2021-09-09 Marycarmen Matson 10:45:00 [facility] POC GLUCOSE 2021-09-09 Emiliano-Corrine Dozier 01:10:00 Hospital POC GLUCOSE 2021-09-08 Emiliano-Corrine Dozier 21:16:00 Hospital POC GLUCOSE 2021-09-08 Emiliano-Corrine Dozier 16:10:00 Hospital BASIC METABOLIC PANEL 2021-09-08 Haja Fraser 09:27:00 Hospital MAGNESIUM LEVEL 2021-09-08 Haja Fraser 09:27:00 Hospital ESTIMATED GFR 2021-09-08 Haja Fraser 09:27:00 Hospital GASTROINTESTINAL PANEL 2021-09-08 Marley Cronin 02:15:00 Hospital POC GLUCOSE 2021-09-08 Emiliano-Corrine Dozier 01:30:00 Hospital BASIC METABOLIC PANEL 2021-09-07 Corrine Osuna 18:00:00 Hospital ESTIMATED GFR 2021-09-07 Corrine Osuna 18:00:00 Hospital HEPATITIS B SURFACE ANTIGEN 2021-09-07 Andrea Matson odist 18:00:00 [facility] HEPATITIS B SURFACE AB, 2021-09-07 Stephen Matson t QUANTITATIVE 18:00:00 [facility] XR CHEST 1 VW PORTABLE 2021-09-07 Corrine Osuna 16:47:43 Hospital XR ABDOMEN 1 VW 2021-09-07 Corrine Osuna 16:47:22 Hospital HEMODIALYSIS 2021-09-07 Haja Fraser 16:16:15 Hospital POC GLUCOSE 2021-09-07 Corrine Osunaist 11:07:00 Hospital TROPONIN T 2021-09-07 Trinidad Menard 03:35:00 [facility] TROPONIN T 2021-09-07 Marley Cronin 00:00:00 Hospital RESPIRATORY PATHOGEN PANEL WITH 2021-09-06 Marley Cronin COVID-19 RT-PCR 23:59:[address] ABDOMEN PELVIS WO CONTRAST 2021-09-06 Marley Cronin thodist 22:16:48 Hospital ECG ED PRELIMINARY INTERPRETATION 2021-09-06 Kimmy Cronin 21:23:51 Hospital ECG 12-LEAD 2021-09-06 Marley Cronin 20:48:53 Hospital CBC WITH PLATELET AND DIFFERENTIAL 2021-09-06 Alecia Cronin 20:09:00 Hospital COMPREHENSIVE METABOLIC PANEL 2021-09-06 Marley Cronin thodist 20:09:00 Hospital ESTIMATED GFR 2021-09-06 Malrey Cronin 20:09:00 Hospital MAGNESIUM LEVEL 2021-09-06 Marley Cronin 20:09:00 Hospital TROPONIN T 2021-09-06 Marley Cronin 20:09:00 Hospital PHOSPHORUS LEVEL 2021-09-06 Marley Cronin 20:09:00 Hospital POC GLUCOSE 2021-08-13 Marycarmen Nuñez 16:22:00 [facility] POC GLUCOSE 2021-08-13 Marycarmen Nuñez 11:17:00 [facility] XR CHEST 1 VW PORTABLE 2021-08-13 Josemanuel Vences 11:13:27 Hospital BASIC METABOLIC PANEL 2021-08-13 Josemanuel Vences 10:26:00 Hospital ESTIMATED GFR 2021-08-13 Josemanuel Vences 10:26:00 Hospital POC GLUCOSE 2021-08-13 Marycarmen Nuñez 00:38:00 [facility] HEMODIALYSIS 2021-08-13 Josemanuel Vences 00:09:24 Hospital VA AN ELECTIVE ENDOTRACHEAL AIRWAY 2021-08-12 Leodan Rebolledo 23:45:00 Hospital INSERTION, CATHETER, DIALYSIS, 2021-08-12 Josemanuel Vences ethodist PERITONEAL, LAPAROSCOPIC 23:10:00 Hospita l POC GLUCOSE 2021-08-12 Katelynn Nuñezist 20:36:00 [facility] COVID-19 QUALITATIVE RT-PCR 2021-08-12 Ti Post 17:35:00 [facility] POC GLUCOSE 2021-08-12 Kohlnhofer, [facility] 15:58:00 [facility] POC GLUCOSE 2021-08-12 Kohlnhofer, [facility] 11:07:00 [facility] ECG 12-LEAD 2021-08-12 Marycarmen Mcdonald 11:02:39 [facility] BASIC METABOLIC PANEL 2021-08-12 Florenceshania [facility] 09:47:00 [facility] ESTIMATED GFR 2021-08-[address] [facility] 09:47:00 [facility] POC GLUCOSE 2021-08-12 Kohlnhofer, [facility] 00:51:00 [facility] POC GLUCOSE 2021-08-11 Kohlnhofer, [facility] 20:44:00 [facility] POC GLUCOSE 2021-08-11 Kohlnhofer, [facility] 16:14:00 [facility] POC GLUCOSE 2021-08-11 Kohlnhofer, [facility] 11:06:00 [facility] POC GLUCOSE 2021-08-11 Kohlnhofer, [facility] 00:30:00 [facility] POC GLUCOSE 2021-08-10 Kohlnhofer, Anabaptist 20:48:00 [facility] POC GLUCOSE 2021-08-10 Kohlnhofer, Anabaptist 11:07:00 [facility] POC GLUCOSE 2021-08-10 Kohlnhofer, Anabaptist 00:46:00 [facility] POC GLUCOSE 2021-08-09 Kohlnhofer, Anabaptist 21:37:00 [facility] HEMODIALYSIS 2021-08-09 Agraharkar [facility]ist 17:13:01 [facility] POC GLUCOSE 2021-08-09 Kohlnhofer, Anabaptist 16:55:00 [facility] POC GLUCOSE 2021-08-09 Tammy Dumont 11:19:00 [facility] BASIC METABOLIC PANEL 2021-08-09 Marycarmen Matson 10:52:00 [facility] ESTIMATED GFR 2021-08-09 FlorenceMarycarmen jauregui 10:52:00 [facility] PROCALCITONIN 2021-08-09 Hyacinth Guthrie [facility] 02:51:00 Hospital POC GLUCOSE 2021-08-09 Tammy Dumont 00:26:00 [facility] POC GLUCOSE 2021-08-08 Tammy Dumont 21:18:00 [facility] [facility] POC GLUCOSE 2021-08-08 Tammy Dumont 19:34:00 [facility] POC GLUCOSE 2021-08-08 Tammy Dumont 10:58:00 [facility] DIGOXIN LEVEL 2021-08-08 Ritu Graves 10:46:00 [facility] BASIC METABOLIC PANEL 2021-08-08 Marycarmen Matson 10:46:00 [facility] ESTIMATED GFR 2021-08-08 Marycarmen Matson 10:46:00 [facility] POC GLUCOSE 2021-08-08 Tammy Dumont 02:06:00 [facility] POC GLUCOSE 2021-08-07 Tammy Dumont 23:09:00 [facility] HEMODIALYSIS 2021-08-07 Marycarmen Matson 20:13:07 [facility] POC GLUCOSE 2021-08-07 Tammy Dumont 15:50:00 [facility] POC GLUCOSE 2021-08-07 Tammy Dumont 11:19:00 [facility] CBC WITH PLATELET AND DIFFERENTIAL 2021-08-07 Steven Lucero 11:15:00 [facility] COMPREHENSIVE METABOLIC PANEL 2021-08-07 Rupali Lucero 11:15:00 [facility] ESTIMATED GFR 2021-08-07 Rupali Lucero 11:15:00 [facility] POC GLUCOSE 2021-08-07 Tammy Dumont 00:58:00 [facility] HEMODIALYSIS 2021-08-06 Marycarmen Matson 21:36:17 [facility] POC GLUCOSE 2021-08-06 VladimirugTasneem black 21:21:00 [facility] POC GLUCOSE 2021-08-06 Mougwayne Taso Anabaptist 15:39:00 Hospital BASIC METABOLIC PANEL 2021-08-06 Marycarmen Matson 11:19:00 [facility] ESTIMATED GFR 2021-08-06 Marycarmen Matson 11:19:00 [facility] POC GLUCOSE 2021-08-06 Tasneem Ellison 09:09:00 Hospital POC GLUCOSE 2021-08-06 Tasneem Ellison 04:44:00 Hospital HEMODIALYSIS 2021-08-06 Marycarmen Matson 02:34:43 [facility] POC GLUCOSE 2021-08-06 Tasneem Ellison 01:09:00 [facility] XR CHEST 1 VW PORTABLE 2021-08-05 Joanna Leiva 23:40:00 Hospital POC GLUCOSE 2021-08-05 Tasneem Ellison 21:24:00 Hospital OR [place] < 1 HOUR 2021-08-05 Joanna Leiva 21:05:00 Hospital VA AN ELECTIVE SUPRAGLOTTIC AIRWAY 2021-08-05 Grazyna Martinez 20:19:00 [facility] INSERTION, CATHETER, CENTRAL 2021-08-05 Joanna Leiva VENOUS, TUNNELED, FOR HEMODIALYSIS 20:13:00 Hospital TYPE AND SCREEN 2021-08-05 Ti Post 20:09:00 Hospital POC GLUCOSE 2021-08-05 Tasneem Ellison 15:43:00 Hospital ECG 12-LEAD 2021-08-05 Ti Post 14:07:10 Hospital POC GLUCOSE 2021-08-05 Marycarmen Ayers 11:25:00 [facility] XR CHEST 1 VW PORTABLE 2021-08-05 Ti Post t 11:17:10 Hospital CBC WITH PLATELET AND DIFFERENTIAL 2021-08-05 Steven Lucero 10:45:00 [facility] BASIC METABOLIC PANEL 2021-08-05 Rupali Lucero 10:45:00 [facility] ESTIMATED GFR 2021-08-05 Rupali Lucero 10:45:00 [facility] POC GLUCOSE 2021-08-05 Marycarmen Ayers 00:57:00 [facility] POC GLUCOSE 2021-08-04 Marycarmen Ayers 16:51:00 [facility] XR ABDOMEN 1 VW 2021-08-04 Rupali Lucero 16:40:00 [facility] POC GLUCOSE 2021-08-04 Tammy Dumont 11:24:00 [facility] HC COMPLETE BLD COUNT W/AUTO DIFF 2021-08-04 Tammy Dumont 11:06:00 [facility] BASIC METABOLIC PANEL 2021-08-04 Marycarmen Matson 11:06:00 [facility] MAGNESIUM LEVEL 2021-08-04 Rupali Lucero 11:06:00 [facility] PHOSPHORUS LEVEL 2021-08-04 Rupali Lucero 11:06:00 [facility] ESTIMATED GFR 2021-08-04 Marycarmen Matson 11:06:00 [facility] POC GLUCOSE 2021-08-04 Tammy Dumont 00:57:00 [facility] POC GLUCOSE 2021-08-03 Tammy Dumont 21:36:00 [facility] HEPATITIS B CORE ANTIBODY TOTAL 2021-08-03 Marycarmen Matson 17:42:00 [facility] HEPATITIS B SURFACE AB, 2021-08-03 Stephen Matson t QUANTITATIVE 17:42:00 [facility] HEPATITIS C ANTIBODY 2021-08-03 Marycarmen Matson 17:42:00 [facility] HEPATITIS B SURFACE ANTIGEN 2021-08-03 Andrea Matson 17:42:00 [facility] POC GLUCOSE 2021-08-03 Tammy Dumont 16:38:00 [facility] POC GLUCOSE 2021-08-03 Tammy Dumont 11:29:00 [facility] HC COMPLETE BLD COUNT W/AUTO DIFF 2021-08-03 Ender Lucero 11:03:00 [facility] BASIC METABOLIC PANEL 2021-08-03 Rupali Lucero 11:03:00 [facility] PHOSPHORUS LEVEL 2021-08-03 Marycarmen Matson 11:03:00 [facility] PARATHYROID HORMONE 2021-08-03 José Espino 11:03:00 Health System ESTIMATED GFR 2021-08-03 Rupali Lucero 11:03:00 [facility] POC GLUCOSE 2021-08-03 Tammy Dumont 00:22:00 [facility] CV STRESS TEST NUCLEAR CARDIO 2021-08-02 Me Harry thodist 21:45:00 [facility] NM MYOCARDIAL PERFUSION REST 2021-08-02 Met ada Mcdonald STRESS 1 DAY 21:45:00 [facility] POC GLUCOSE 2021-08-02 Tammy Dumont 21:08:00 [facility] POC GLUCOSE 2021-08-02 Tammy Dumont 16:34:00 [facility] POC GLUCOSE 2021-08-02 Tammy Dumont 11:19:00 [facility] HC COMPLETE BLD COUNT W/AUTO DIFF 2021-08-02 Ender Lucero 09:43:00 [facility] BASIC METABOLIC PANEL 2021-08-02 Rupali Lucero 09:43:00 [facility] MAGNESIUM LEVEL 2021-08-02 Rupali Lucero 09:43:00 [facility] ESTIMATED GFR 2021-08-02 Rupali Lucero 09:43:00 [facility] POC GLUCOSE 2021-08-02 Tammy Dumont 00:15:00 [facility] POC GLUCOSE 2021-08-01 Tammy Dumont 20:02:00 [facility] POC GLUCOSE 2021-08-01 Tammy Dumont 16:16:00 [facility] POC GLUCOSE 2021-08-01 Tammy Dumont 11:16:00 [facility] BASIC METABOLIC PANEL 2021-08-01 Theresa Ramos t 10:56:00 Hospital MAGNESIUM LEVEL 2021-08-01 Theresa Ramos 10:56:00 Hospital PHOSPHORUS LEVEL 2021-08-01 Theresa Ramos 10:56:00 Hospital HC COMPLETE BLD COUNT W/AUTO DIFF 2021-08-01 Ender Lucero 10:56:00 [facility] ESTIMATED GFR 2021-08-01 Theresa Ramos 10:56:00 Hospital ECG 12-LEAD 2021-08-01 Marycarmen Mcdonald 08:03:48 [facility] POC GLUCOSE 2021-08-01 Tammy Dumont 01:35:00 [facility] TTE COMPLETE, WO CONTRAST, W 2021-07-31 Met ada Mcdonald DOPPLER ([id number]) 23:38:00 [facility] POC GLUCOSE 2021-07-31 Tammy Dumont 22:40:00 [facility] COVID-19 QUALITATIVE RT-PCR 2021-07-31 Rupali Lucero 17:14:00 [facility] POC GLUCOSE 2021-07-31 Tammy Dumont 17:07:00 [facility] POC GLUCOSE 2021-07-31 Tammy Dumont 12:13:00 [facility] B NATRIURETIC PEPTIDE 2021-07-31 José Espino 11:34:00 Health System BASIC METABOLIC PANEL 2021-07-31 José Espino 11:34:00 [facility] System HC COMPLETE BLD COUNT W/AUTO DIFF 2021-07-31 José Espino 11:34:00 Health System TROPONIN T 2021-07-31 José Espino 11:34:00 Health System ESTIMATED GFR 2021-07-31 José Espino 11:34:00 Health System Plan of Care Planned Activity Planned Date [...] Cessation Counseling and Screening (12+)] Future Scheduled 2022-07-19 DIABETIC FOOT EXAM [facility] Test 07:26:52 [code = DIABETIC FOOT EXAM] Future Scheduled 2022-07-19 COLONOSCOPY SCREENING [facility] Test 07:26:52 [code = COLONOSCOPY SCREENING] Future Scheduled 2022-07-19 DIABETES: RETINAL EYE [facility] Test 07:26:52 EXAM [code = DIABETES: RETINAL EYE EXAM] Future Scheduled 2022-07-19 SHINGLES VACCINES (1 Met [facility] Test 07:26:52 of 2) [code = SHINGLES VACCINES (1 of 2)] Future Scheduled 2022-07-19 BREAST CANCER [facility] Test 07:26:52 SCREENING [code = BREAST CANCER SCREENING] Future Scheduled 2022-07-19 COVID-19 VACCINE (4 - [facility] Test 07:26:52 Booster for Pfizer series) [code = COVID-19 VACCINE (4 - Booster for Pfizer series)] Future Scheduled 2022-07-19 [facility] 07:26:52 [code = INFLUENZA VACCINE] Future Scheduled 2022-05-[address] [...] SCREENING] Future Scheduled 2022-05-17 DIABETIC FOOT EXAM [facility] Test 10:42:08 [code = DIABETIC FOOT EXAM] Future Scheduled 2022-05-17 COLONOSCOPY SCREENING [facility] Test 10:42:08 [code = COLONOSCOPY SCREENING] Future Scheduled 2022-05-17 DIABETES: RETINAL EYE [facility] Test 10:42:08 EXAM [code = DIABETES: RETINAL EYE EXAM] Future Scheduled 2022-05-17 SHINGLES VACCINES (1 Met [facility] Test 10:42:08 of 2) [code = SHINGLES VACCINES (1 of 2)] Future Scheduled 2022-05-17 BREAST CANCER [facility] Test 10:42:08 SCREENING [code = BREAST CANCER SCREENING] Future Scheduled 2022-05-17 COVID-19 VACCINE (4 - Me [facility] Test 10:42:08 Booster for Pfizer series) [code = COVID-19 VACCINE (4 - Booster for Pfizer series)] Future Scheduled 2022-05-17 INFLUENZA VACCINE [facility] Test 10:42:08 [code = INFLUENZA [...] [facility] breast (procedure) [code = 412247545] Future Scheduled [address] [facility] Test 00:00:00 (combo) [code = CT Medical C enter Colonography (combo)] Future Scheduled [address] [facility] Test 00:00:00 malignant neoplasm of [facility] Center colon (procedure) [code = 036178891] Future Scheduled [address] [facility] Test 00:00:00 [facility] colon (procedure) [code = 885123978] Future Scheduled 1948 DXA SCAN [code = DXA [facility] Test 00:00:00 SCAN] Medical Center Future Scheduled [address] [facility] Test 00:00:00 [facility] colon (procedure) [code = 205715733] Future Scheduled [address] [facility] Test 00:00:00 [facility] colon (procedure) [code = 919760297] Future Scheduled 1948 Sigmoidoscopy [facility] Future Scheduled [address] [facility] Test 00:00:00 malignant neoplasm [facility] breast (procedure) [code = 539444770] Future Scheduled [address] [facility] Test 00:00:00 (combo) [code = CT Medical C enter Colonography (combo)] Future Scheduled [address] [facility] Test 00:00:00 [facility] colon (procedure) [code = 207003254] Future Scheduled [address] [facility] Test 00:00:00 [facility] colon (procedure) [code = 561846880] Future Scheduled 1948 DXA SCAN [code = DXA [facility] Test 00:00:00 SCAN] [facility] Future Scheduled [address] [facility] Test 00:00:00 malignant neoplasm [facility] Center colon (procedure) [code = 078996005] Future Scheduled [address] [facility] Test 00:00:00 [facility] colon (procedure) [code = 219479388] Future Scheduled 1948 Sigmoidoscopy [facility]oscopy] [facility] Future Scheduled [address] [facility] Test 00:00:00 malignant ne[facility] breast (procedure) [code = 081025387] Future Scheduled [address] [facility] Test 00:00:00 (combo) [code = CT Medical C enter Colonography (combo)] Future Scheduled [address] [facility] Test 00:00:00 [facility] colon (procedure) [code = 117834966] Future Scheduled [address] [facility] Test 00:00:00 [facility] colon (procedure) [code = 289473154] Future Scheduled 1948 DXA SCAN [code = DXA [facility] Test 00:00:00 SCAN] [facility] Future Scheduled [address] [facility] Test 00:00:00 [facility] colon (procedure) [code = 598324228] Future Scheduled [address] [facility] Test 00:00:00 malignant neoplasm [facility] colon (procedure) [code = 331701675] Future Scheduled 1948 [facility]igmoidoscopy [facility] Future Sched[facility] [address] [facility] Test 00:00:00 malignant neoplasm of [facility] Center breast (procedure) [code = 627879457] Future Scheduled [address] [facility] Test 00:00:00 (combo) [code = CT Medical C enter Colonography (combo)] Future Scheduled [address] [facility] Test 00:00:00 [facility] colon (procedure) [code = 726173538] Future Scheduled [address] [facility] Test 00:00:00 [facility] colon (procedure) [code = 278770874] Future Scheduled 1948 DXA SCAN [code = DXA [facility] Test 00:00:00 SCAN] [facility] Future Scheduled [address] [facility] Test 00:00:00 [facility] colon (procedure) [code = 725260681] Future Scheduled [address] [facility] Test 00:00:00 [facility] colon (procedure) [code = 137326296] Future Scheduled 1948 [facility]oid[facility] End Encounter Admission Attending Care Care Encounter Source Date/Time Date/Time Type Type Clinicians Facility Department ID 2022-06-08 Inpatient EL Alfredo, [facility] DAYS [id number] [facility] 09:00:00 Greg 07 [facility] 2022-01-05 Inpatient [facility] Vascular [id number] [facility] St 13:58:43 [facility] 2021-11-04 Outpatient [facility] [id number] [place] 14:10:46 [id number] [facility] 2021-08-11 Outpatient [facility] [id number] [place] 09:26:19 [id number] [facility] 2022-07-05 2022-07-05 Orders Doctor MACKENZIE 1.2.840.114 [id number] Univers 00:00:00 00:00:00 Only Unassigned, YARELI 350.1.13.10 [facility] [place] [facility] 4.2.7.2.686 Kev as [phone] [address] 2022-04-01 2022-04-01 Orders Doctor MACKENZIE 1.2.840.114 [id number] Univers 00:00:00 00:00:00 Only Unassigned, YARELI 350.1.13.10 [facility] [place] [facility] 4.2.7.2.686 Kev as [phone] [address] 2022-03-24 2022-03-24 Telephone Eran [facility] 1.2.511.445 [id number] Univers 00:00:00 00:00:00 Luc S HEALTH 350.1.13.10 it y of [place] 4.2.7.2.686 Kev as MARISA?BLEA [phone] [address] 2022-03-23 2022-03-23 Telephone Eran [facility] 1.2.154.161 [id number] Univers 00:00:00 00:00:00 Luc S HEALTH 350.1.13.10 it y of [place] 4.2.7.2.686 Kev as MARISA?BLEA [phone] Va [address] 2022-03-18 2022-03-18 Telephone Berenice [facility] 1.2.840.114 [id number] Univers 00:00:00 00:00:00 Alannah L HEALTH 350.1.13.10 it y of [place] 4.2.7.2.686 Kev as MARISA?BLEA [phone] Va dical [address] MEDICAL OFFICE BUILDING 2022-03-16 2022-03-16 Telephone Berenice [facility] 1.2.840.114 [id number] Univers 00:00:00 00:00:00 Alannah MEDELLIN 350.1.13.10 ity [facility] 4.2.7.2.686 [facility] AT [phone] Va garcía KINGSTON [address] [place] [address] 2022-01-07 2022-01-18 [facility] Annalee Bey Jan [facility] [id number] 17:48:00 16:48:00 Encounter Reji [facility] 2022-01-07 2022-01-18 Inpatient [facility] Surgery [id number] [facility] 17:48:00 16:48:00 ANNALEE 2022-01-07 2022-01-18 [facility] Maida Annalee Montoya [facility] [id number] 17:48:00 16:48:00 Encounter Reji, [facility] 2022-01-07 2022-01-07 Travel [facility] [id number] [facility] 00[facility]00 [facility] 2022-01-07 2022-01-07 Travel [facility] [id number] [facility] 00:[facility] 00:00[facility]00 [facility] 2022-01-02 2022-01-02 [facility] [id number] Univers 00:00:00 00:00:00 ALANNAH durand [facility] 2021-09-06 2021-09-16 [facility] Trinidad Menard 1.2.840.1 10 [id number] Methodi 14:46:00 18:55:00 Encounter Corrine Osuna 89303.1.[address] 3.430.2.7 Hospit a .3.200076 l .8 2021-09-06 2021-09-16 [facility].2.[facility].1 10 [id number] Methodi 14:46:00 18:55:00 Encounter Corrine Osuna 97074.1.[address] 3.430.2.7 Hospit a .3.908501 l .8 2021-09-13 2021-09-13 Anesthesia McInroe, 1.2.840.1 [id number] Methodi 14:58:00 15:19:00 Event Edwin 15861.1.[address] Alannah 3.430.2.7 Hospit a .3.322458 l .8 2021-09-13 2021-09-13 Anesthesia McInroe, 1.2.840.1 [id number] Methodi 14:58:00 15:19:00 Event Edwin 78042.1.[address] Alannah 3.430.2.7 Hospit a .3.295373 l .8 2021-09-13 2021-09-13 Surgery John, 1.2.840.1 [id number] Methodi 14:22:00 14:27:[address] Ongeri 3.430.2.7 Hospit a .3.388242 l .8 2021-09-13 2021-09-13 Surgery John, 1.2.840.1 [id number] Methodi 14:22:00 14:27:[address] Ongeri 3.430.2.7 Hospit a .3.899753 l .8 2021-09-06 2021-09-06 Travel 1.2.840.1 1.2.013.691 [id number] Methodi 00:00:00 00:00:[address] 3.430.2.7 0.2.7.3.698 Ho spita .3.170149 084.8 l .8 2021-09-06 2021-09-06 Travel 1.2.840.1 1.2.129.255 1396 [id number] Methodi 00:00:00 00:00:[address] 3.430.2.7 0.2.7.3.698 spita .3.690960 084.8 l .8 2021-07-31 2021-08-13 [facility] Tammy Dumont Donna 1.2.840.1 [id number] Methodi 04:12:00 19:46:00 Encounter Edwin Ayers 90582.1.[address] Mougottois, Taso 3.430.2.7 [facility] .3.020935 l .8 2021-07-31 2021-08-13 [facility] Tammy Dumont Donna 1.2.840.1 [id number] Methodi 04:12:00 19:46:00 Encounter Edwin Ayers 14077.1.[address] Scot, Taso 3.430.2.7 Hospita Annalee Nuñez .3.960607 l .8 2021-08-12 2021-08-12 Anesthesia Leodan Rebolldeo 1.2.840.1 [id number] Methodi 18:09:00 19:38:[address] 3.430.2.7 Hospit a .3.489785 l .8 2021-08-12 2021-08-12 Anesthesia Leodan Rebolledo 1.2.840.1 [id number] 2 [id number] Methodi 18:09:00 19:38:[address] 3.430.2.7 Hospit a .3.963443 l .8 2021-08-12 2021-08-12 Surgery Ru 1.2.840.1 [id number] Methodi 17:35:00 18:50:[address] 3.430.2.7 Hospit a .3.502126 l .8 2021-08-12 2021-08-12 Surgery Ru 1.2.840.1 [id number] Methodi 17:35:00 18:50:[address] 3.430.2.7 Hospit a .3.278520 l .8 2021-08-05 2021-08-05 Anesthesia RamonGlenjohanna Hernandes 1.2.840.1 [id number] Methodi 15:12:00 16:16:00 Event Grazyna Mratinez 30341.1.[address] 3.430.2.7 Hospit a .3.617447 l .8 2021-08-05 2021-08-05 Anesthesia Andre Navarroen 1.2.840.1 [id number] Methodi 15:12:00 16:16:00 Event Grazyna Martinez 47396.1.[address] 3.430.2.7 Hospit a .3.913470 l .8 2021-08-05 2021-08-05 Surgery Leiva, 1.2.840.1 [id number] Methodi 15:20:00 16:05:[address] 3.430.2.7 Hospit a .3.436594 l .8 2021-08-05 2021-08-05 Surgery Leiva, 1.2.840.1 [id number] Methodi 15:20:00 16:05:[address] 3.430.2.7 Hospit a .3.370851 l .8 2021-08-02 2021-08-02 Documentat Provider, 1.2.840.1 [id number] 2 [id number] Methodi 00:00:00 00:00:00 ion Unknown 10805.1.[address] 3.430.2.7 Hospit a .3.158388 l .8 2021-08-02 2021-08-02 Documentat Provider, 1.2.840.1 [id number] 2 [id number] Methodi 00:00:00 00:00:00 ion Unknown 94841.1.[address] 3.430.2.7 Hospit a .3.030562 l .8 2021-07-14 2021-07-14 Transcribe Shabana 1.2.840.1 [id number] Methodi 00:00:00 00:00:00 Orders , Zulema 34073.1.[address] 3.430.2.7 Hospit a .3.344807 l .8 2021-06-10 2021-06-10 Clinical 1.2.840.1 [id number] Methodi 15:45:00 15:58:[address] 3.430.2.7 Hospit a .3.095114 l .8 2021-06-10 2021-06-10 Travel 1.2.840.1 1.2.357.426 9754 [id number] Methodi 00:00:00 00:00:[address] 3.430.2.7 0.2.7.3.698 Ho spita .3.099159 084.8 l .8 2021-06-09 2021-06-09 Outpatient Daniel_T VFP VFP [id number] [address] 11:40:00 11:40:00 [id number] Family Practic e 2021-06-01 2021-06-04 Outpatient EMILIANO-YOBANY, [facility] [id number] [place] 00:00:00 00:00:00 MAHLaly [address] 2020-08-05 2020-08-05 Outpatient [facility] [id number] [place] 00:00:00 00:00:00 , ZULEMA [address] 2020-07-09 2020-07-09 Outpatient [facility] [id number] [place] 00:00:00 00:00:[address] 2020-06-18 2020-06-18 Outpatient [facility] [id number] [place] 00:00:00 00:00:[address] 2020-04-05 2020-04-06 Outpatient EMILIANO-YOBANY, [place] [address] [id number] [place] 00:00:00 00:00:00 MAHA [address] 2020-03-22 2020-03-25 Inpatient EMILIANO[facility]YOBANY, [facility] [id number] [place] 00:00:00 00:00:00 MAHLaly [address] 2020-02-27 2020-02-27 Outpatient BHUMI, [facility] [id number] [place] 00:00:00 00:00:00 DAVID [address] 2020-02-17 2020-02-18 Outpatient EMILIANO-YOBANY, [place] [address] [id number] [place] 00:00:00 00:00:00 MAHA [address] 2020-01-17 2020-01-18 Emergency JOSE A, [facility] [id number] 46 [place] 00:00:00 00:00:00 SHAKEEL [address] 2019-10-23 2019-10-26 Inpatient AL-HAMZAHQ, [place] [address] [id number] 2583 [place] 00:00:00 00:00:00 MAHA 153 Method i 2019-08-05 2019-08-05 Outpatient PHUC-MICHAEL [facility] [id number] [place] 00:00:00 00:00:00 , ZULEMA [address] 2019-07-10 2019-07-12 Inpatient AL-YOBANY, [facility] [id number] [place] 00:00:00 00:00:00 MAHA [address] 2019-03-27 2019-03-30 Outpatient TEQWIMDORIS, [facility] 2100 [id number] [place] 00:00:00 00:00:00 SARAI [address] Results Test Description Test Time Test Comments Results Result Comments Source POC-Glucose meter 2022-01-18 12:22:13 Test Item Value Reference Range Interpretation Comme nts POC-Glucose Meter (test code = 102 mg/dL 70-110 : TESTED AT [facility] [address] [place] [address] 153) [facility] [address]: Business Development Agent/Techni faviola ID = [id number] for Yelling, [place] a Lab Interpretation (test code = Normal 46122-2) [facility] [id number] 12:22:13 Test Item Value Reference Range Interpretation Comments POC-Glucose Meter (test 102 mg/dL 70-110 : TE STED AT [facility] code = 1538) [address] [place] [address]92: Business Development Agent/Techni faviola ID = [id number] for Yelling, [place] a Lab Interpretation (test Normal code = 78724-2) [facility] [id number] 12:22:13 Test Item Value Reference Range Interpretation Comments POC-Glucose Meter (test 102 mg/dL 70-110 : [facility]38[facility] [address] [facility] [id number]: Business Development Agent/Techni faviola ID = [id number] for Riching, [place] a Lab Interpretation (test Normal code = 23327-1) [facility]-Glucose [id number] 12:22:13 Test Item Value Reference Range Interpretation Comments POC-Glucose Meter (test 102 mg/dL 70-110 : TE STED AT [facility] code = 1538) [address] [place] [id number]: Business Development Agent/Techni faviola ID = [id number] for Yelling, [place] a Lab Interpretation (test Normal code = 79486-6) [facility]-GLUCOSE [id number] 12:22:13 Test Item Value Reference Range Interpretation Comments POC-GLUCOSE METER 102 mg/dL 70-110 : TESTED A T [facility] 1317 (BEAKER) (test code [facility], = 1538) [facility] 77 8: Business Development Agent/Techni faviola ID = [id number] for Rich ingMyriama BASIC METABOLIC [id number] 06:40:34 Test Item Value Reference Range Interpretation [...] not appl icable for dialysis patien ts Business Development Agent ID - [id number] ID - [id number] ID - MIRJDZBYO163Awzsjooc ID - VOGAZWIBT817Vsqycvfq ID - ZUWIFKZYU588Nwbrkfqn ID - LGQTGLJHJ951Yhuakopz ID - MBOTMXEBO886Gclmaamm ID - PRGSMYENJ545Stnhcswf ID - VUCCCRYHY874Eringzmp ID - LUUVHXUER575Mbyddeqk ID - LDERIWVYU611Sxofuzev ID - MTXSNFKZU234Cjpqigmm ID - TJMRBJLGK714NSXC-OEOQNJA [id number] 19:58:07 Test Item Value Reference Range Interpretation Comments POC-GLUCOSE METER 126 mg/dL 70-110 H : TESTED A T [facility] 1317 ([facility]) (test code [facility], = 1538) [place] [id number]: Business Development Agent/Techni faviola ID = [id number] for Ina Agrawal POCT-GLUCOSE [id number] 17:18:36 Test Item Value Reference Range Interpretation Comments POC-GLUCOSE METER 128 mg/dL 70-110 H : Notified RN/MD: TESTED ([facility]) (test code AT [facility] [address] = 1538) [place] [id number]: Business Development Agent/Techni faviola ID = [id number] for Thak er, Nikitaben POCT-GLUCOSE [id number] 12:27:16 Test Item Value Reference Range Interpretation Comments POC-GLUCOSE METER 141 mg/dL 70-110 H : TESTED A T [facility] 1317 ([facility]) (test [facility], = 1538) [place] [id number]: Business Development Agent/Techni faviola ID = [id number] for Thak er, Nikitaben POCT-GLUCOSE [id number] 08:42:44 Test Item Value Reference Range Interpretation Comments POC-GLUCOSE METER 152 mg/dL 70-110 H : Notified RN/MD: TESTED (BEAKER) (test code AT [facility] 1317 [address] = 1538) [facility] [id number]: Business Development Agent/Techni faviola ID = [id number] for Sunita Alaniz BASIC METABOLIC [id number] 05:53:56 Test Item Value Reference Range Interpretation [...] not appl icable for dialysis patien ts Business Development Agent ID - [id number] ID - KGDFSOWZD080Ssefhbgx ID - ORMORDMTJ785Nxbngkqp ID - [id number] ID - [id number] ID - XCIIVNLVV554Wuwttjfs ID - PHDYYSRKS552Vymsubdr ID - VEXSQUPAD088Wicdveuy ID - ACNVWEIIX050Geazmyag ID - CURZGZCWF408Ejavnlks ID - EHPCOOBMX081Jtqgwzmo ID - MMJBKGZSW221Skswtucc ID - ROFXSCZUW859CUOY-WLSSAQU [id number] 20:28:58 Test Item Value Reference Range Interpretation Comments POC-GLUCOSE METER 184 mg/dL 70-110 H : TESTED A T [facility] (BEAKER) (test code [facility], = 1538) [place] [id number]: Business Development Agent/Techni faviola ID = [id number] for Ina Agrawal POCT-GLUCOSE [id number] 15:57:54 Test Item Value Reference Range Interpretation Comments POC-GLUCOSE METER 187 mg/dL 70-110 H : TESTED A T [facility] (BEAKER) (test code [facility], = 1538) [place] [id number]: Business Development Agent/Techni faviola ID = [id number] for Ej vergara, Aileen POCT-GLUCOSE [id number] 11:57:54 Test Item Value Reference Range Interpretation Comments POC-GLUCOSE METER 163 mg/dL 70-110 H : TESTED A T [facility] (BEAKER) ([facility] = 1538) [place] [id number]: Business Development Agent/Techni faviola ID = [id number] for Ej vergara, Aileen POCT-GLUCOSE [id number] 07:59:00 Test Item Value Reference Range Interpretation Comments POC-GLUCOSE METER 129 mg/dL 70-110 H : TESTED A T [facility] (BEAKER) (test code [facility], = 1538) [place] [id number]: Business Development Agent/Techni afviola ID = [id number] for Ej vergara, Aileen POCT-GLUCOSE [id number] 20:24:24 Test Item Value Reference Range Interpretation Comments POC-GLUCOSE METER 185 mg/dL 70-110 H : TESTED A T [facility] (BEAKER) ([facility], = 1538) [place] [id number]: Business Development Agent/Techni faviola ID = [id number] for ZacharyAgustin rasmussen POCT-GLUCOSE [id number] 18:05:34 Test Item Value Reference Range Interpretation Comments POC-GLUCOSE METER 126 mg/dL 70-110 H : TESTED A T [facility] (BEAKER) (test code [address], = 1538) [place] [address]: Business Development Agent/Techni faviola ID = [id number] for Jhoan Leijali POCT-GLUCOSE [id number] 12:43:19 Test Item Value Reference Range Interpretation Comments POC-GLUCOSE METER 154 mg/dL 70-110 H : TESTED A T [facility] (BEAKER) (test code [address], = 1538) [place] [id number]: Business Development Agent/Techni faviola ID = [id number] for Jhoan Leijali POCT-GLUCOSE [id number] 07:44:17 Test Item Value Reference Range Interpretation Comments POC-GLUCOSE METER 142 mg/dL 70-110 H : TESTED A T [facility] (BEAKER) (test code [address], = 1538) [place] [id number]: Business Development Agent/Techni faviola ID = [id number] for Jhoan Leijali BASIC METABOLIC [id number] 05:55:22 Test Item Value Reference Range Interpretation [...] not appl icable for dialysis patien ts Business Development Agent ID - LITOOperator ID - LITOOperator ID - LITOOperator ID - LITOOperator ID - LITOOperator ID - LITOOperator ID - LITOOperator ID - LITOOperator ID - LITOOperator ID - LITOOperator ID - LITOOperator ID - LITOOperator ID - MARTÍN POCT-GLUCOSE [id number] 20:53:58 Test Item Value Reference Range Interpretation Comments POC-GLUCOSE METER 194 mg/dL 70-110 H : TESTED A T [facility] (BEAKER) (test code [address], = 1538) [place] [address]: Business Development Agent/Techni faviola ID = [id number] for Ailene Loja POCT-GLUCOSE [id number] 15:49:19 Test Item Value Reference Range Interpretation Comments POC-GLUCOSE METER 171 mg/dL 70-110 H : TESTED A T [facility] (BEAKER) (test code [address], = 1538) [place] [address]: Business Development Agent/Techni faviola ID = [id number] for Aileen Loja SARS-CoV2/RT-PCR (Asymptomatic ONLY)2022-01-14 15:42:35 Test Item Value Reference Interpretation Comments Range SARS-COV2/RT-PCR Negative Negative The SARS-Co V-2 (test code = target nucleic 86789-1) [facility]. Negat eveline results do not [...] revoked sooner. Fact Sheet for Healthcare Providers: https://www.[employer]/Documents/Xp ert%20Xpress%20SAR S%20CoV-2/Fact%20S heets/302-3802%20S ARS-COV-2%20HEALTH CARE%20PROVIDERS%2 0FACT%20SHEET.pdf Fact Sheet for Healthcare Patients: https://wwwSequent Medical/Documents/Xp ert%20Xpress%20SAR S%20CoV-2/Fact%20S heets/302-3801%20S ARS-COV-2%20PATIEN T%20FACT%20SHEET.p df Lab Interpretation Normal (test code = 17390-5) [facility]-14 15:42:35 Test Item Value Reference Interpretation Comments Range SARS-COV2/RT-PCR Negative Negative The SARS-Co V-2 (test code = target nucleic 13362-0) acids are not detected in thi s [...] revoked sooner. Fact Sheet for Healthcare Providers: https://www.[employer]/Documents/Xp ert%20Xpress%20SAR S%20CoV-2/Fact%20S heets/302-3802%20S ARS-COV-2%20HEALTH CARE%20PROVIDERS%2 0FACT%20SHEET.pdf Fact Sheet for Healthcare Patients: https://wwwSequent Medical/Documents/Xp ert%20Xpress%20SAR S%20CoV-2/Fact%20S heets/302-3801%20S ARS-COV-2%20PATIEN T%20FACT%20SHEET.p df Lab Interpretation Normal (test code = 21470-6) [facility]2022-01-14 15:42:35 Test Item Value Reference Interpretation Comments Range SARS-COV2/RT-PCR Negative Negative The SARS-Co V-2 (test code = target nucleic 06638-0) acids are not detected in thi s [...] revoked sooner. Fact Sheet for Healthcare Providers: https://www.[employer]/Documents/Xp ert%20Xpress%20SAR S%20CoV-2/Fact%20S heets/302-3802%20S ARS-COV-2%20HEALTH CARE%20PROVIDERS%2 0FACT%20SHEET.pdf Fact Sheet for Healthcare Patients: https://www.[employer]/Documents/Xp ert%20Xpress%20SAR S%20CoV-2/Fact%20S heets/302-3801%20S ARS-COV-2%20PATIEN T%20FACT%20SHEET.p df Lab Interpretation Normal (test code = 20167-6) [facility]2022-01-14 15:42:35 Test Item Value Reference Interpretation Comments Range SARS-COV2/RT-PCR Negative Negative The SARS-Co V-2 (test code = target nucleic 14938-4) acids are not detected in thi s [...] revoked sooner. Fact Sheet for Healthcare Providers: https://www.[employer]/Documents/Xp ert%20Xpress%20SAR S%20CoV-2/Fact%20S heets/302-3802%20S ARS-COV-2%20HEALTH CARE%20PROVIDERS%2 0FACT%20SHEET.pdf Fact Sheet for Healthcare Patients: https://www.[employer]/Documents/Xp ert%20Xpress%20SAR S%20CoV-2/Fact%20S heets/302-3801%20S ARS-COV-2%20PATIEN T%20FACT%20SHEET.p df Lab Interpretation Normal (test code = 25317-8) [facility])2022-01-14 15:42:35 Test Item Value Reference Range Interpretation Comments SARS-COV2/RT-PCR Negative Negative The SARS-Co V-2 target (test code = nucleic acids a re not 5854607) detected in thi s specimen. Negative result [...] revoked sooner. Fact Sheet for Healthcare Providers: https://www.[employer] m/Documents/Xpert%20Xpress%20SARS%20CoV-2/Fact%20Sheets/302-3802%38SRXV-WTM-5%20 HEALTHCARE%20PROVIDERS%20FACT%20SHEET.pdf Fact Sheet for Healthcare Patients: https://www.[employer]/Documents/Xpert%20Xp ress%20SARS%20CoV-2/Fact%20Sheets/302-3801%38QSVZ-KXT-8%20PATIENT%20FACT%20SHEET .pdfRAD, CHEST, 1 VIEW, NON [id number] 15:02:00Reason for exam:- >SOBShould this be performed at the bedside?->Yes [facility] 1950 Sex: FFINAL [...] clear and vascularity normal. S igned: Carl Linkort Verified Date/Time: 01/14/2022 15:02:16 Reading Location: [facility] Radiology Reading Room POCT-GLUCOSE [id number] 12:14:41 Test Item Value Reference Range Interpretation Comments POC-GLUCOSE METER 134 mg/dL 70-110 H : [facility] (test code [address], = 1538) [facility] [address]: Business Development Agent/Techni faviola ID = [id number] for Aileen Loja, CENTRAL VENOUS CATH PLCMT (JUG/FEM) > 5 Y.O. WITH [id number] 11:25:00Reason for exam:->Non tunneled central line placement [facility] 1950 Sex: FFINAL [...] 0.4 minutes Radiationdose (Ka,r): 2 mGy Signed: Link, Carl MDReport Verified Date/Time: 01/14/2022 11:25:42 Reading Location: [facility] Radiology Reading Room POCT-GLUCOSE [id number] 08:34:59 Test Item Value Reference Range Interpretation Comments POC-GLUCOSE METER 147 mg/dL 70-110 H : TESTED A T [facility] 1317 (BEAKER) (test code [address], = 1538) [facility] [place] [address]: Business Development Agent/Techni faviola ID = [id number] for Aileen Loja BASIC METABOLIC [id number] 06:37:03 Test Item Value Reference Range Interpretation [...] (test code = 697) EGFR (BEAKER) 15 Interpretati on of eGFR (test code = mL/min/1.73 values [...] not appl icable for dialysis patien ts Business Development Agent ID - LITOOperator ID - LITOOperator ID [...] 0-0 (BEAKER) (test code = 413) POCT-GLUCOSE [id number] 19:50:36 Test Item Value Reference Range Interpretation Comments POC-GLUCOSE METER 199 mg/dL 70-110 H : TESTED A T [facility] (BEAKER) (test code [address], = 1538) [place] [address]: Business Development Agent/Techni faviola ID = [id number] for Ina Agrawal POCT-GLUCOSE [id number] 16:52:12 Test Item Value Reference Range Interpretation Comments POC-GLUCOSE METER 150 mg/dL 70-110 H : TESTED A T [facility] (BEAKER) (test code [address], = 1538) [place] [address]: Business Development Agent/Techni faviola ID = [id number] for Aileen Loja POCT-GLUCOSE [id number] 14:05:10 Test Item Value Reference Range Interpretation Comments POC-GLUCOSE METER 122 mg/dL 70-110 H : TESTED A T [facility] (BEAKER) (test code [address], = 1538) [place] [id number]: Business Development Agent/Techni faviola ID = [id number] for Nancy Douglass Blood gas, [id number] 09:06:33 Test Item Value Reference Range Interpretation Comments pH, Arterial (test code 7.45 7.35-7.45 = 2744-1) pCO2, Arterial (test 40 See_Comment [Autom ated message] code = 2018-12) The system aBIZinaBOX generated this result transmit kenneth reference range : 35 - 45 mm Hg. The reference range was not used to interpret this result as normal/abnormal . pO2, Arterial (test 79 See_Comment L [Automa kenneth message] code = 2703-7) The system [employer]BIZina[employer] generated this result transmit kenneth reference range [...] 21 Lab Interpretation Abnormal (test code = 59592-7) [facility] [id number] 09:06:33 Test Item Value Reference Range Interpretation Comments pH, Arterial (test code 7.45 7.35-7.45 = 2744-1) pCO2, Arterial (test 40 See_Comment [Autom ated message] code = 2018-12) The system [employer] generated this result transmit kenneth reference range : 35 - 45 mm Hg. The reference range was not used to interpret this result as normal/abnormal . pO2, Arterial (test 79 See_Comment L [Automa kenneth message] code = 2703-7) The system [employer] generated this result transmit kenneth reference range [...] 21 Lab Interpretation Abnormal (test code = 82695-3) [facility], [id number] 09:06:33 Test Item Value Reference Range Interpretation Comments pH, Arterial (test code 7.45 7.35-7.45 = 2744-1) pCO2, Arterial (test 40 See_Comment [Autom ated message] code = 2018-12) The system [employer] generated this result transmit kenneth reference range : 35 - 45 mm Hg. The reference range was not used to interpret this result as normal/abnormal . pO2, Arterial (test 79 See_Comment L [Automa kenneth message] code = 2703-7) The system [employer] generated this result transmit kenneth reference range [...] 21 Lab Interpretation Abnormal (test code = 69555-2) [facility], [id number] 09:06:33 Test Item Value Reference Range Interpretation Comments pH, Arterial (test code 7.45 7.35-7.45 = 2744-1) pCO2, Arterial (test 40 See_Comment [Autom ated message] code = 2019) The system aBIZ[employer] generated this result transmit kenneth reference range : 35 - 45 mm Hg. The reference range was not used to interpret this result as normal/abnormal . pO2, Arterial (test 79 See_Comment L [Automa kenneth message] code = 2703-7) The system [facility] generated this result transmit kenneth reference [...] 21 Lab Interpretation Abnormal (test code = 88712-6) [facility], [id number] 09:06:33 Test Item Value Reference Range Interpretation [...] (BEAKER) (test code = 1819) 21.0 POCT-GLUCOSE [id number] 08:36:44 Test Item Value Reference Range Interpretation Comments POC-GLUCOSE METER 132 mg/dL 70-110 H : TESTED A T [facility] (BEAKER) (test code [address], = 1538) [facility] 77 [address]: Business Development Agent/Techni faviola ID = [id number] for Ej vergaraAileen TSH/FREE T4 IF [id number] 08:14:31 Test Item Value Reference Range Interpretation Comments THYROID STIMULATING HORMONE 1.790 uIU/mL 0.350-5.500 (BEAKER) (test code = 772) Business Development Agent ID - DSENSONCOMPREHENSIVE METABOLIC [id number] 08:04:08 Test Item Value Reference Range Interpretation [...] not appl icable for dialysis patien ts Business Development Agent ID - DSENSONOperator ID - DSENSONOperator ID - DSENSONOperator ID - DSENSONOperator ID - DSENSONOperator ID - DSENSONOperator ID - DSENSONOperator ID - DSENSONOperator ID - DSENSONOperator ID - DSENSONOperator ID - DSENSONOperator ID - DSENSONOperator ID - DSENSONOperator ID - DSENSONOperatorID - DSENSONOperator ID - DSENSONOperator ID - DSENSONOperator ID - DSENSONOperator ID - DSENSONTROPONIN [id number] 08:03:10 Test Item Value Reference Range Interpretation [...] failure, acidosis, acute neurological disease, and persistent tachyarrhythmia.Business Development Agent ID - DSENSONCT, BRAIN, WITHOUT [id number] 07:49:00 [facility] 1950 Sex: FFINAL [...] 01/13/2022 07:49:20 CBC W/PLT COUNT & AUTO [id number] 07:39:37 Test Item Value Reference Range Interpretation [...] PERCENT (BEAKER) (test code = 2801) POCT-GLUCOSE [id number] 07:15:45 Test Item Value Reference Range Interpretation Comments POC-GLUCOSE METER 127 mg/dL 70-110 H : TESTED A T [facility] (BEAKER) (test code [facility], = 1538) [place] [id number]: Business Development Agent/Techni faviola ID = [id number] for Aileen Loja POCT-GLUCOSE [id number] 06:32:48 Test Item Value Reference Range Interpretation Comments POC-GLUCOSE METER 133 mg/dL 70-110 H : TESTED A T [facility] (BEAKER) ([facility], = 1538) [place] [address]: Business Development Agent/Techni faviola ID = [id number] for Mekhi bi, Libia POCT-GLUCOSE [id number] 21:05:05 Test Item Value Reference Range Interpretation Comments POC-GLUCOSE METER 195 mg/dL 70-110 H : TESTED A T [facility] (BEAKER) (test [facility], = 1538) [place] [address]: Business Development Agent/Techni faviola ID = [id number] for Mekhi bi, [place] POCT-GLUCOSE [id number] 19:32:35 Test Item Value Reference Range Interpretation Comments POC-GLUCOSE METER 180 mg/dL 70-110 H : TESTED A T [facility] (BEAKER) (test code [address], = 1538) [place] [address]: Business Development Agent/Techni faviola ID = [id number] for Kitzmiller ins, Odalys POCT-GLUCOSE [id number] 19:30:16 Test Item Value Reference Range Interpretation Comments POC-GLUCOSE METER 50 mg/dL 70-110 L : TESTED A T [facility] (BEAKER) (test code = [address], 1538) [place] [address]: Business Development Agent/Techni faviola ID = [id number] for Kitzmiller ins, Odalys POCT-GLUCOSE [id number] 18:09:32 Test Item Value Reference Range Interpretation Comments POC-GLUCOSE METER 63 mg/dL 70-110 L : TESTED A T [facility] (BEAKER) (test code = [address], 1538) [place] [address]: Business Development Agent/Techni faviola ID = [id number] for Will iamsRobe ANG, TUNNELED CATHETER [id number] 17:04:00Reason for exam:->dialysis catheter with poor flows on dialysis, very positional - please place tunneled dialysis catheter in a new position. [facility] 1950 Sex: FFINAL REPORT Tunneled dialysis catheter exchange, 01/12/2022. History: Renal failure, poor flow through the existing catheter. Modality: Sonography and fluoroscopy. Sedation: None. Big Data Software Engineer: Mitzy. Puppy Walker: None. Approach: Internal jugular vein - right. [...] Several attempts at repositioning the existing catheter toimprove the flow were unsuccessful. The skin was anesthetized with 2% lidocaine. A 0.035 inch wire was placed through the existing right IJ tunneled catheter into the right atrium. Microcatheter was removed and a new 23 cm 15.5 Ukrainian Duraflow 2 catheter was advanced through the tunnel into the vessel, into the catheter tip was in the inferior right atrium. The ports were tested demonstrating that both aspirated easily following placement. The ports were then packed with heparin. The catheter was sutured to the skin with 2-0 silk to secure its placement. Vital signs were monitored throughout the procedure by a nurse, and remained stable. The patient tolerated the procedure well and left the department in the same condition. Results: Spot radiograph of the chest demonstrates the new dialysis catheter to terminate in the inferior right atrium. Impression: Successful, uncomplicated exchange of a right internal jugular tunneled dialysis catheter using fluoroscopic guidance. Signed: Nick Dockeryeport Verified Date/Time: 01/12/2022 17:04:33 Reading Location: [facility] Reading Room POCT-GLUCOSE METER 2022-01-12 12:20:13 Test Item Value Reference Range Interpretation Comments POC-GLUCOSE METER 107 mg/dL 70-110 : TESTED A T [facility] (Whotever) (test code [address], = 1538) [place] [id number]: Business Development Agent/Techni faviola ID = [id number] for Robe Agrawal POCT-GLUCOSE [id number] 09:01:23 Test Item Value Reference Range Interpretation Comments POC-GLUCOSE METER 118 mg/dL 70-110 H : TESTED A T [facility] (BEAKER) (test code [address], = 1538) [place] [address]: Business Development Agent/Techni faviola ID = [id number] for Robe Agrawal CBC W/PLT COUNT & AUTO [id number] 06:58:41 Test Item Value Reference Range Interpretation [...] code = 1+ few 961) BASIC METABOLIC [id number] 06:30:57 Test Item Value Reference Range Interpretation [...] not appl icable for dialysis patien ts Business Development Agent ID - LITOOperator ID - LITOOperator ID - LITOOperator ID - LITOOperator ID - LITOOperator ID - LITOOperator ID - LITOOperator ID - LITOOperator ID - LITOOperator ID - [id number] 06:19:11 Test Item Value Reference Range Interpretation Comments MAGNESIUM (BEAKER) (test code = 1.9 mg/dL 1.5-3.0 627) Business Development Agent ID - LITOOperator ID - LITOOperator ID - LITOOperator ID - MARTÍN [id number] 06:16:11 Test Item Value Reference Range Interpretation Comments PHOSPHORUS (BEAKER) (test code = 3.4 mg/dL 2.5-4.5 604) Business Development Agent ID - LITOPROTHROMBIN TIME/[id number] 06:03:04 Test Item Value Reference Range Interpretation Comments PROTIME (BEAKER) 12.4 seconds 9.3-12.0 H Final Infor mation (test code = 759) (Auto Outp ut) INR (BEAKER) (test 1.14 See_Comment Final Inf ormation code = 370) (Auto Output) [Automated mess age] The system [employer] generated this result transmitted ref erence range: <=5.90. The reference range was not used to int erpret this result as normal/abnormal . RECOMMENDED COUMADIN/WARFARIN INR THERAPY RANGESSTANDARD DOSE: 2.0 - 3.0 Includes: PROPHYLAXIS for venous thrombosis, systemic embolization; TREATMENT for venous thrombosis and/or pulmonary embolus.HIGH RISK: Target INR is 2.5-3.5 for patients with mechanical heart valves.[id number] 06:03:04 Test Item Value Reference Range Interpretation Comments PARTIAL THROMBOPLASTIN 29.5 seconds 23.0-35.0 Final Information TIME (BEAKER) (test (Auto Ou tput) code = 760) POCT-GLUCOSE [id number] 20:00:47 Test Item Value Reference Range Interpretation Comments POC-GLUCOSE METER 172 mg/dL 70-110 H : TESTED A T [facility] (BEAKER) (test code [address], = 1538) [facility] 77 478: Business Development Agent/Techni faviola ID = [id number] for Will Ina lewis POCT-GLUCOSE [id number] 18:09:30 Test Item Value Reference Range Interpretation Comments POC-GLUCOSE METER 121 mg/dL 70-110 H : TESTED A T [facility] (BEAKER) (test code [address], = 1538) [place] [address]: Business Development Agent/Techni faviola ID = [id number] for Will iams, Robe POCT-GLUCOSE [id number] 12:48:21 Test Item Value Reference Range Interpretation Comments POC-GLUCOSE METER 102 mg/dL 70-110 : TESTED A T [facility] (BEAKER) (test code [address], = 1538) [place] [address]: Business Development Agent/Techni faviola ID = [id number] for Avelino Connie bucknernna POCT-GLUCOSE [id number] 08:00:17 Test Item Value Reference Range Interpretation Comments POC-GLUCOSE METER 119 mg/dL 70-110 H : TESTED A T [facility] (BEAKER) (test code [address], = 1538) [place] [id number]: Business Development Agent/Techni faviola ID = [id number] for Will iams, Robe POCT-GLUCOSE [id number] 21:28:11 Test Item Value Reference Range Interpretation Comments POC-GLUCOSE METER 227 mg/dL 70-110 H : TESTED A T [facility] (BEAKER) (test code [address], = 1538) [place] [address]: Business Development Agent/Techni faviola ID = [id number] for Libia Pop POCT-GLUCOSE [id number] 15:35:44 Test Item Value Reference Range Interpretation Comments POC-GLUCOSE METER 168 mg/dL 70-110 H : TESTED A T [facility] (BEAKER) (test code [address], = 1538) [place] [address]: Business Development Agent/Techni faviola ID = [id number] for Maribel Jimenez, REPL CVC/TUNNELED W/O [id number] 11:59:00 [facility] 1950 Sex: FFINAL [...] a permanent image was stored. Catheter size (Ukrainian): 15.5Catheter flush: Heparin (100 units/mL) Abbie sureThe catheter was secured. A sterile dressing was applied.Catheter securement technique: Non-absorbable suture ContrastContrast agent: NoneContrast volume (mL): 0 Radiation DoseFluoroscopy time: 1 minute 17 secondsDose: 13 mgy Additional DetailsAdditional description of procedure: NoneEquipment details: NoneSpecimens removed: NoneEstimated blood loss (mL): Less than 10Standardized report: [email or web address] AttestationSigner name: Vicki ChrissyStephany attest that I was present for the entireprocedure. I reviewed the stored images and agree with the report as written. Signed: Vicki Ramirez MDReport Verified Date/Time: 01/10/2022 11:59:48 Reading Location: [facility] Radiology Reading Room POCT-GLUCOSE [id number] 11:32:33 Test Item Value Reference Range Interpretation Comments POC-GLUCOSE METER 105 mg/dL 70-110 : TESTED A T [facility] 1317 (BEAKER) (test code [facility] [address], = [address]38) [facility] 77 478: Business Development Agent/Techni faviola ID = [id number] for Anne breen Maribel BASIC METABOLIC [id number] 04:51:32 Test Item Value Reference Range Interpretation [...] (test code = 697) EGFR (BEAKER) 15 Interpretati on of eGFR (test code = mL/min/1.73 values [...] not appl icable for dialysis patien ts Business Development Agent ID - LITOOperator ID - LITOOperator ID - LITOOperator ID - LITOOperator ID - LITOOperator ID - LITOOperator ID - LITOOperator ID - LITOOperator ID - LITOOperator ID - [id number] 04:50:58 Test Item Value Reference Range Interpretation Comments MAGNESIUM (BEAKER) (test code = 2.0 mg/dL 1.5-3.0 627) Business Development Agent ID - LITOOperator ID - LITOOperator ID - LITOOperator ID - MARTÍN [id number] 04:48:19 Test Item Value Reference Range Interpretation Comments PHOSPHORUS (BEAKER) (test code = 3.9 mg/dL 2.5-4.5 604) Business Development Agent ID - [id number] 04:44:00 Test Item Value Reference Range Interpretation Comments PARTIAL THROMBOPLASTIN 51.7 seconds 23.0-35.0 H Final Information TIME (BEAKER) (test (Auto Ou tput) code = 760) CBC W/PLT COUNT & AUTO [id number] 04:24:30 Test Item Value Reference Range Interpretation [...] PERCENT (BEAKER) (test code = 2801) POCT-GLUCOSE [id number] 21:26:47 Test Item Value Reference Range Interpretation Comments POC-GLUCOSE METER 127 mg/dL 70-110 H : TESTED A T [facility] 1317 (BEAKER) (test code [facility] [address], = 1538) [place] [address] 478: Business Development Agent/Techni faviola ID = [id number] for Libia Pop [id number] 20:08:11 Test Item Value Reference Range Interpretation Comments PARTIAL THROMBOPLASTIN 41.3 seconds 23.0-35.0 H Final Information TIME (BEAKER) (test (Auto Ou tput) code = 760) POCT-GLUCOSE [id number] 17:14:06 Test Item Value Reference Range Interpretation Comments POC-GLUCOSE METER 154 mg/dL 70-110 H : TESTED A T [facility] (BEAKER) (test code [address], = 1538) [place] [id number]: Business Development Agent/Techni faviola ID = [id number] for Aileen Loja POCT-GLUCOSE [id number] 11:55:38 Test Item Value Reference Range Interpretation Comments POC-GLUCOSE METER 153 mg/dL 70-110 H : TESTED A T [facility] (BEAKER) (test code [address], = 1538) [place] [id number]: Business Development Agent/Techni faviola ID = [id number] for Pankaj Jimeneze HEPATITIS B SURFACE [id number] 11:29:52 Test Item Value Reference Range Interpretation Comments HEPATITIS B SURFACE ANTIBODY 53.8 mIU/mL <8.0 H (BEAKER) (test code = 647) Business Development Agent ID - [id number] 10:04:36 Test Item Value Reference Range Interpretation Comments PARTIAL THROMBOPLASTIN 36.3 seconds 23.0-35.0 H Final Information TIME (BEAKER) (test (Auto Ou tput) code = 760) POCT-GLUCOSE [id number] 07:31:03 Test Item Value Reference Range Interpretation Comments POC-GLUCOSE METER 111 mg/dL 70-110 H : TESTED A T [facility] (BEAKER) (test code [address], = 1538) [place] [address] 478: Business Development Agent/Techni faviola ID = [id number] for Pankaj Jimeneze [id number] 06:13:46 Test Item Value Reference Range Interpretation Comments MAGNESIUM (BEAKER) (test code = 1.8 mg/dL 1.5-3.0 627) Business Development Agent ID - [id number] ID - [id number] ID - [id number] ID - [id number] METABOLIC [id number] 06:12:49 Test Item Value Reference Range Interpretation [...] De scription 1092) sq m Result G1 Norm al or high >=90 G2 Mildly decreased 60-89 G3a Mildl y to moderately 45-5 9 G3b Moderately to s everely 30-44 G4 Severl y decreased 15-29 G5 Kidney failure <15Reported eGF R is based on the CKD-EPI 1 equation that d oes not use a race coefficientEsti mated GFR is not as accur ate as Creatinine Nilda roni in predicting glom erular filtration rate . Estimated GFR is not appl icable for dialysis patien ts Business Development Agent ID - [id number] ID - [id number] ID - [id number] ID - [id number] ID - [id number] ID - [id number] ID - [id number] ID - [id number] ID - [id number] ID - [id number] 06:10:51 Test Item Value Reference Range Interpretation Comments PHOSPHORUS (BEAKER) (test code = 3.0 mg/dL 2.5-4.5 604) Business Development Agent ID - [id number] W/PLT COUNT & AUTO [id number] 05:49:35 Test Item Value Reference Range Interpretation [...] PERCENT (BEAKER) (test code = 2801) POCT-GLUCOSE [id number] 05:17:03 Test Item Value Reference Range Interpretation Comments POC-GLUCOSE METER 108 mg/dL 70-110 : TESTED A T [facility] (BEAKER) (test code [facility], = 1538) [place] [id number]: Business Development Agent/Techni faviola ID = [id number] for esperanza Abraham [id number] 01:14:37 Test Item Value Reference Range Interpretation Comments PARTIAL THROMBOPLASTIN 37.5 seconds 23.0-35.0 H Final Information TIME (BEAKER) (test (Auto Ou tput) code = 760) HEPATITIS B SURFACE [id number] 18:36:43 Test Item Value Reference Range Interpretation Comments HEPATITIS B SURFACE ANTIGEN (2) Nonreactive Nonreactive (AKER) (test code = 2585) Business Development Agent ID - [id number] 17:00:29 Test Item Value Reference Range Interpretation Comments POC-GLUCOSE METER 131 mg/dL 70-110 H : TESTED A T [facility] (BEAKER) (test code [facility], = 1538) [place] [address]88: Business Development Agent/Techni faviola ID = [id number] for Bernie TrujilloenaMigel [id number] 16:38:44 Test Item Value Reference Range Interpretation Comments PARTIAL THROMBOPLASTIN 42.5 seconds 23.0-35.0 H Final Information TIME (BEAKER) (test (Auto Ou tput) code = 760) POCT-GLUCOSE [id number] 12:29:39 Test Item Value Reference Range Interpretation Comments POC-GLUCOSE METER 168 mg/dL 70-110 H : TESTED A T [facility] (BEAKER) (test code [facility], = 1538) [place] [id number]: Business Development Agent/Techni faviola ID = [id number] for Salvatorevenkat filomena SherlyMigel POCT-GLUCOSE [id number] 08:10:36 Test Item Value Reference Range Interpretation Comments POC-GLUCOSE METER 136 mg/dL 70-110 H : TESTED A T [facility] (BEAKER) (test code [address], = 1538) [facility] 77 478: Business Development Agent/Techni faviola ID = [id number] for Etou Migel Gross BASIC METABOLIC [id number] 06:18:43 Test Item Value Reference Range Interpretation [...] not appl icable for dialysis patien ts Business Development Agent ID - LITOOperator ID - LITOOperator ID - LITOOperator ID - LITOOperator ID - LITOOperator ID - LITOOperator ID - LITOOperator ID - LITOOperator ID - LITOOperator ID - [id number] 06:17:29 Test Item Value Reference Range Interpretation Comments MAGNESIUM (BEAKER) (test code = 1.6 mg/dL 1.5-3.0 627) Business Development Agent ID - LITOOperator ID - LITOOperator ID - LITOOperator ID - MARTÍN HEMOGLOBIN [id number] 06:16:10 Test Item Value Reference Range Interpretation Comments HEMOGLOBIN A1C (BEAKER) (test code = 8.5 % 4.3-6.1 H 368) Business Development Agent ID - [id number] 06:14:08 Test Item Value Reference Range Interpretation Comments PHOSPHORUS (BEAKER) (test code = 5.0 mg/dL 2.5-4.5 H 604) Business Development Agent ID - [id number] 05:59:43 Test Item Value Reference Range Interpretation Comments PARTIAL THROMBOPLASTIN 45.4 seconds 23.0-35.0 H Final Information TIME (BEAKER) (test (Auto Ou tput) code = 760) CBC W/PLT COUNT & AUTO [id number] 05:48:29 Test Item Value Reference Range Interpretation [...] H PERCENT (BEAKER) (test code = 2801) [id number] 21:22:07 Test Item Value Reference Range Interpretation Comments PARTIAL THROMBOPLASTIN 26.5 seconds 23.0-35.0 Final Information TIME (BEAKER) (test (Auto Ou tput) code = 760) POCT-GLUCOSE [id number] 21:12:37 Test Item Value Reference Range Interpretation Comments POC-GLUCOSE METER 136 mg/dL 70-110 H : TESTED A T [facility] (BEAKER) (test code [address], = 1538) [facility] [place] 77 478: Business Development Agent/Techni faviola ID = [id number] for esperanza Abraham POC [id number] 16:00:00 Test Item Value Reference Range Interpretation Comments POC glucose (test code = 158 mg/dL 65-99 H Ope rator Name: [id number]) Bob tilley ID: [id number] Lab Interpretation (test Abnormal code = 46174-8) [facility] [id number] 16:00:00 Test Item Value Reference Range Interpretation Comments POC glucose (test code = 158 mg/dL 65-99 H Ope rator Name: [id number]) Bob tilley ID: [id number] Lab Interpretation (test Abnormal code = 97334-1) [facility] pathology [id number] 15:05:25 Test Item Value Reference Range Interpretation Comments Case number (test code = [id number]) Surgical pathology See link below for report (test code = PDF Lab Report 2255) Result status (test code This is Final Report = [id number]) for [id number] [facility] pathology [id number] 15:05:25 Test Item Value Reference Range Interpretation Comments Case number (test code = [id number]) Surgical pathology See link below for report (test code = PDF Lab Report 2255) Result status (test code This is Final Report = [id number]) for [id number] [facility] 12 [id number] 12:23:18 Test Item Value Reference Range Interpretation [...] of 12-AUG-2021 06:02,-No significant change was found- [place] [address] [id number] 12:23:18 Test Item Value Reference Range Interpretation Comments Ventricular rate (test 80 code = 253) Atrial rate (test code 80 = 255) QRSD interval (test 118 code = 260) QT interval (test code 412 = 264) QTC interval (test code 475 = 265) P axis 1 (test code = 13 267) QRS axis 1 (test code = -58 268) T wave axis (test code 85 = 270) EKG impression (test Ventricular-paced code = 273) rhythm-Abnormal ECG-In automated comparison with ECG of 12-AUG-2021 06:02,-No significant change was found- [facility] ED Preliminary Interpretation - Not an [id number] 21:23:51 Test Item Value Reference Range Interpretation Comments VALERIANO (test code = VALERIANO) Marley Cronin NP-C 09[facility]07[facility]21 9[facility] Interpretation - Not an OrderPerformed by: Marley Cronin NP-CAuthorized by: Trinidad Menard MD ECG reviewed by ED Physician in the absence of a urban gardening specialist: no Previous ECG: Previous ECG: UnavailableInterpretat ion: Interpretation: abnormal Rate: ECG rate: 80 ECG rate assessment: normal Rhythm: Rhythm: paced Pacing: Type of pacing: VentricularEctopy: Ectopy: none QRS: QRS axis: Normal QRS intervals: NormalConduction: Conduction: normal ST segments: ST segments: Normal Lab Interpretation Abnormal (test code = 51329-3) [facility] ED Preliminary Interpretation - Not an [id number] 21:23:51 Test Item Value Reference Range Interpretation Comments VALERIANO (test code = VALERIANO) Marley Cronin NP-C 09/07/2021 9:29 [facility] ED Preliminary Interpretation - Not an OrderPerformed by: Marley Cronin NP-CAuthorized by: Trinidad Menard MD ECG reviewed by ED Physician in the absence of a urban gardening specialist: no Previous ECG: Previous ECG: UnavailableInterpretat ion: Interpretation: abnormal Rate: ECG rate: 80 ECG rate assessment: normal Rhythm: Rhythm: paced Pacing: Type of pacing: VentricularEctopy: Ectopy: none QRS: QRS axis: Normal QRS intervals: NormalConduction: Conduction: normal ST segments: ST segments: Normal Lab Interpretation Abnormal (test code = 49130-4) [facility] [Presence] in Respiratory specimen by LANG with probe [id number] 13:39:12 Test Item Value Reference Range Interpretation Comments SARS-CoV-2 (COVID-19) RNA Not detected [Presence] in Respiratory specimen by LANG with probe detection (test code = 00151-0) Whether patient is employed in a Unknown healthcare setting (test code = 03449-5) Whether the patient has symptoms Unknown related to condition of interest (test code = 04203-8) Whether the patient was Unknown hospitalized for condition of interest (test code = 05958-0) Whether the patient was admitted Unknown to intensive care unit (ICU) for condition of interest (test code = 52722-4) Whether patient resides in a Unknown congregate care setting (test code = 50265-6) status (test code = Unknown 63617-2) Date and time of symptom onset Unknown (test code = 90703-6) [facility] myocardial [id number] 02:36:07 Test Item Value Reference Range Interpretation Comments Target HR (test code bpm = 6815768471) Resting HR (test BPM code = 8384918497) Resting BP (test 178/79 mmHg code = 8323301969) Percent HR (test 54.05 % code = 4869051451) Post Peak HR (test bpm code = 0112049600) Post Peak BP (test 161/77 mmHg code = 5672263490) Radiology Study observation (narrative) (test code = 69805-8) VALERIANO (test code = Study Quality: good. [...] left ventricle ejection fraction is mildly reduced. [facility] myocardial [id number] 02:36:07 Test Item Value Reference Range Interpretation Comments Target HR (test code 148.00 bpm = 2284390435) Resting HR (test 83 BPM code = 8541041774) Resting BP (test 178/79 mmHg code = 8251346767) Percent HR (test 54.05 % code = 3438355817) Post Peak HR (test 80 bpm code = 9143459709) Post Peak BP (test 161/77 mmHg code = 9690621816) Radiology Study observation (narrative) (test code = 85997-6) VALERIANO (test code = Study Quality: good. [...] left ventricle ejection fraction is mildly reduced. [facility] stress [id number] 22:06:40 Test Item Value Reference Range Interpretation Comments Resting BP (test code = 3230891038) Protocol Name (test LEXISCAN code = 2774802555) Time in Exercise 00:01:00 Phase (test code = 0997303059) Max Systolic BP (test code = 5637177275) Max Diastolic BP (test code = 5914176210) Max Heart Rate (test code = 3608227186) Max Predicted Heart Rate (test code = 9044269430) Test Indication (test code = 3166861387) Arrhy During Ex (test code = 5398224320) ECG Interp Before EX (test code = 5378743649) ECG Interp During Ex (test code = 9179962043) Ex Summary Comment (test code = 1318026832) Overall HR Response to Exercise (test code = 6693042594) Overall BP Response To Exercise (test code = 9742224532) Reason for Termination (test code = 1367425384) Stress Test Waveform interpreted in Impression (test code report associated with = 8796451782) image study. No interpretation is provided as part of this Stress ECG report.- [facility] stress [id number] 22:06:40 Test Item Value Reference Range Interpretation Comments Resting BP (test code = 5854638855) Protocol Name (test LEXISCAN code = 9744301919) Time in Exercise 00:01:00 Phase (test code = 8750807701) Max Systolic BP (test 178 code = 8362461396) Max Diastolic BP 79 (test code = 3306204097) Max Heart Rate (test 81 code = 5677389900) Max Predicted Heart 148 Rate (test code = 8724235901) Test Indication (test code = 5940719670) Arrhy During Ex (test code = 6607553788) ECG Interp Before EX (test code = 9507173823) ECG Interp During Ex (test code = 4983216416) Ex Summary Comment (test code = 2319560996) Overall HR Response to Exercise (test code = 2838694664) Overall BP Response To Exercise (test code = 4102865367) Reason for Termination (test code = 1342462042) Stress Test Waveform interpreted in Impression (test code report associated with = 5327399422) image study. No interpretation is provided as part of this Stress ECG report.- [facility], (w Contrast, Strain and 3D if needed)2021-08-01 17:44:46 Test Item Value Reference Range Interpretation Comments AoV Area, Vmax (test 2.41 cm2 code = 0589736613) AoV Area, VTI (test 2.36 cm2 code = 6077193948) AoV Mean PG (test mmHg code = 2591873330) AoV Peak PG (test mmHg code = 7683617868) AoV Vmax (test code 1.77 m/s = 5003356173) AoV VTI (test code = 0.30 m 5743574136) IVS,d (test code = 1.11 cm 5499064693) LV,d (test code = 5.57 cm 6292638625) LV EF,A2C (test code 44.91 % = 1013277565) LV EF,A4C (test code 42.43 % = 3046125441) LV EF,BP (test code 42.76 % = 9982072520) [place],d A2C (test 7.79 cm code = 0468058557) [place],d A4C (test 7.59 cm code = 3535480608) [place],s A2C (test 7.10 cm code = 4204934972) [place],s A4C (test 6.58 cm code = 4731089925) LV,s (test code = 4.42 cm 9713561822) LV SV,A2C (test code 59.18 % = 2119038900) LV SV,A4C (test code 64.42 % = 5094574157) LV Vol,d A2C (test 131.77 mL code = 3615327795) LV Vol,d A4C (test 151.81 ml code = 8328191856) LV Vol,d BP (test 142.79 ml code = 7632628077) LV Vol,s A2C (test 72.60 mL code = 9475836355) LV Vol,s A4C (test 87.39 ml code = 8489507538) LV Vol,s BP (test 81.72 nl code = 1157508365) LVOT Diam,S (test 2.08 cm code = 0968225044) LVOT Vmax (test code 1.16 m/s = 0230533768) LVOT VTI (test code 0.21 m = 5085334674) LVPWD,d (test code = 1.05 cm 0628890087) TR Vpeak (test code 2.66 mm/s = 4791923181) AR Press Half Time 504.65 ms (test code = 3918363472) TR pk grad (test mmHg code = 9696347371) MR Vmax (test code = 6.10 m/s 0985770572) MR peak grad (test mmHg code = 2089608264) E wave decelartion msec time (test code = 8510183655) MV Peak E Des (test 1.46 m/s code = 3838774469) LVOT stroke volume 0.71 cm3 (test code = 8142033828) AV LVOT peak mmHg gradient (test code = 9102697124) LV SYS VOL (test 88.60 ml code = 0133225754) LV THOMPSON VOL (test 151.60 ml code = 9363382985) LA area s A4C (test 35.87 cm2 code = 4936431138) LV SV Teich 2D (test 63.00 ml code = 8875800727) LVOT SI (test code = 38.28 ml/m2 0145823353) AoV Cusp sep (test code = 9999559522) AoV Vmn (test code = 0038981980) IVS s 2D (test code = 2232723702) AR slope (test code = 9905628042) Ar Vmax (test code = 4984988975) LA Ao Ratio Mmode (test code = 3752629286) LVOT Vmn (test code = 3438210026) Pt Size (test code = 8049478941) Pt Wt (test code = 6227025675) PV AT (test code = msec 1169099523) LVOT mean grad (test mmHg code = 7078874401) AR DT (test code = msec 4796555016) AR pk grad (test mmHg code = 7099545482) LVPW s PLAX (test 1.41 cm code = 4051156027) MV Decel slope (test 9.79 m/s2 code = 5074605580) LA Vol MOD A4C (test 124.31 ml code = 4544783688) Velocity Ratio 0.66 m/s (V1/V2) (test code = 4689) EF (test code = 41.56 % 5115913713) LVOT area (test code 3.40 cm2 = 8823139229) LVOT VTI (CM) (test 21.00 cm code = 6891487866) RA pressure (test mmHg code = 9363906493) LA Vol 4C (test code 124.00 ml = 4436804267) RVSP (test code = mmHg 0137601816) LA diam s (test code 5.50 cm = 6523650823) Aortic Root (test 2.63 cm code = 4426151242) VA End Thompson Grad (test code = 0384421312) VA End Diat Des (test code = 3262994162) AR maxPG (test code = 3396242185) D E excurs (test code = 7208218723) E f slope (test code = 7538336016) E prime lat (test code = 7878855426) E [place]aton sept (test code = 4364053048) PV acc T slope (test code = 5199946558) CONDE BP EF (test 43.00 % code = 4335553829) LA VOL 2C (test code 138.00 ml = 0217689356) VALERIANO (test code = The left ventricle [...] of aortic valve stenosis.PericardiumNo pericardial effusion seen. [facility], (w Contrast, Strain and 3D if needed)2021-08-01 17:44:46 Test Item Value Reference Range Interpretation Comments AoV Area, Vmax (test 2.41 cm2 code = 8898748415) AoV Area, VTI (test 2.36 cm2 code = 2888594810) AoV Mean PG (test 5.59 mmHg code = 9325334505) AoV Peak PG (test 11.08 mmHg code = 9963917379) AoV Vmax (test code 1.77 m/s = 9219237399) AoV VTI (test code = 0.30 m 6916833095) IVS,d (test code = 1.11 cm 0276269807) LV,d (test code = 5.57 cm 1277335365) LV EF,A2C (test code 44.91 % = 9510270578) LV EF,A4C (test code 42.43 % = 1703644081) LV EF,BP (test code 42.76 % = 3385172518) [place],d A2C (test 7.79 cm code = 4525010680) [place],d A4C (test 7.59 cm code = 7349956439) [place],s A2C (test 7.10 cm code = 1115060088) [place],s A4C (test 6.58 cm code = 6425024064) LV,s (test code = 4.42 cm 4044570178) LV SV,A2C (test code 59.18 % = 7447259047) LV SV,A4C (test code 64.42 % = 1123451127) LV Vol,d A2C (test 131.77 mL code = 3141237064) LV Vol,d A4C (test 151.81 ml code = 2516220783) LV Vol,d BP (test 142.79 ml code = 5198780335) LV Vol,s A2C (test 72.60 mL code = 3324154407) LV Vol,s A4C (test 87.39 ml code = 4625915177) LV Vol,s BP (test 81.72 nl code = 4152952096) LVOT Diam,S (test 2.08 cm code = 1555870778) LVOT Vmax (test code 1.16 m/s = 2239007904) LVOT VTI (test code 0.21 m = 5324979038) LVPWD,d (test code = 1.05 cm 4942698999) TR Vpeak (test code 2.66 mm/s = 4175192464) AR Press Half Time 504.65 ms (test code = 7776878035) TR pk grad (test 27.27 mmHg code = 2653900718) MR Vmax (test code = 6.10 m/s 6780395307) MR peak grad (test 121.70 mmHg code = 8042129977) E wave decelartion 149.68 msec time (test code = 0126446812) MV Peak E Des (test 1.46 m/s code = 5833090474) LVOT stroke volume 0.71 cm3 (test code = 3940256498) AV LVOT peak 5.36 mmHg gradient (test code = 8847507360) LV SYS VOL (test 88.60 ml code = 7343472453) LV THOMPSON VOL (test 151.60 ml code = 7758629767) LA area s A4C (test 35.87 cm2 code = 6073975429) LV SV Teich 2D (test 63.00 ml code = 1690711495) LVOT SI (test code = 38.28 ml/m2 6111417507) AoV Cusp sep (test 1.72 code = 2030847899) AoV Vmn (test code = 1.10 0645973297) IVS s 2D (test code 1.72 = 0295569860) AR slope (test code 2.59 = 5879955878) Ar Vmax (test code = 3.99 3009905185) LA Ao Ratio Mmode 2.07 (test code = 6401292928) LVOT Vmn (test code 0.80 = 0693090471) Pt Size (test code = 162.56 0564124950) Pt Wt (test code = 81.19 5344662600) PV AT (test code = 94.20 msec 0327989921) LVOT mean grad (test 2.88 mmHg code = 5121862661) AR DT (test code = 1541.52 msec 7156068741) AR pk grad (test 58.41 mmHg code = 2105690523) LVPW s PLAX (test 1.41 cm code = 8054660538) MV Decel slope (test 9.79 m/s2 code = 8929806489) LA Vol MOD A4C (test 124.31 ml code = 9299729237) Velocity Ratio 0.66 m/s (V1/V2) (test code = 4689) EF (test code = 41.56 % 2284268742) LVOT area (test code 3.40 cm2 = 6761866048) LVOT VTI (CM) (test 21.00 cm code = 2924750475) RA pressure (test 15.00 mmHg code = [id number]) LA Vol 4C (test code 124.00 ml = 4670421123) RVSP (test code = 43.38 mmHg 3210770403) LA diam s (test code 5.50 cm = 7467095565) Aortic Root (test 2.63 cm code = 2426384339) VA End [place] Grad 11.73 (test code = 4420903995) VA End Diat Des 1.71 (test code = 9635436174) AR maxPG (test code 63.74 = 2485079507) D E excurs (test 2.00 code = 3773216365) E f slope (test code 0.08 = 4083624625) E prime lat (test 0.06 code = 4552845995) E keaton sept (test 0.09 code = 0855857290) PV acc T slope (test 6.80 code = 8648053634) CONDE BP EF (test 43.00 % code = 5411416268) LA VOL 2C (test code 138.00 ml = 3807166342) VALERIANO (test code = The left ventricle [...] of aortic valve stenosis.PericardiumNo pericardial effusion seen. [facility] CehmzchzGSBR-IcC-5 (COVID-19) RNA [Presence] in Respiratory specimen by LANG with probe [id number] 23:11:03 Test Item Value Reference Range Interpretation Comments SARS-CoV-2 (COVID-19) RNA Not detected [Presence] in Respiratory specimen by LANG with probe detection (test code = 76665-1) Whether patient is employed in a Unknown healthcare setting (test code = 88062-5) Whether the patient has symptoms Unknown related to condition of interest (test code = 73995-2) Whether the patient was Unknown hospitalized for condition of interest (test code = 44472-5) Whether the patient was admitted Unknown to intensive care unit (ICU) for condition of interest (test code = 19137-4) Whether patient resides in a Unknown congregate care setting (test code = 39048-2) status (test code = Unknown 81815-2) Date and time of symptom onset Unknown (test code = 89717-8) [facility] (COVID-19) RNA [Presence] in Respiratory specimen by LANG with probe [id number] 11:45:59 Test Item Value Reference Range Interpretation Comments SARS-CoV-2 (COVID-19) RNA Not detected Not-Detected [Presence] in Respiratory specimen by LANG with probe detection (test code = 86545-6) Whether patient is employed in a healthcare setting (test code = 03299-3) Whether the patient has symptoms related to condition of interest (test code = 64011-8) Patient was hospitalized because of this condition (test code = 09232-8) Whether the patient was admitted to intensive care unit (ICU) for condition of interest (test code = 26967-5) Whether patient resides in a congregate care setting (test code = 13351-7) [facility]-CoV-2 (COVID-19) RNA [Presence] in Respiratory specimen by ALNG with probe [id number] 05:28:15 Test Item Value Reference Range Interpretation Comments SARS-CoV-2 (COVID-19) RNA Not detected Not-Detected [Presence] in Respiratory specimen by LANG with probe detection (test code = 16056-4) [facility]-CoV-2 (COVID-19) RNA [Presence] in Respiratory specimen by LANG with probe [id number] 23:52:31 Test Item Value Reference Range Interpretation Comments SARS-CoV-2 (COVID-19) RNA Not detected Not-Detected [Presence] in Respiratory specimen by LANG with probe detection (test code = 76314-0) [facility]
[2022-07-30] MEDS ORDERED: MORPHINE 4 MG/ML SYR ONE (04:51)
[2022-07-30] MEDS ORDERED: ONDANSETRON 4 MG/2 ML VIAL ONE (04:51)
[2022-07-30] MEDS ORDERED: FAMOTIDINE 20 MG/2 ML VIAL IV ONE (04:51)
[2022-07-30] MEDS ORDERED: MORPHINE 2 MG/ML SYR ONE (04:58)
[2022-07-30 04:59] LABS: Absolute Lymphocytes (CBC) 2.3 K/uL (0.7-4.9); Hematocrit 27.1 % (36.0-45.0); Lymphocytes % 24.9 % (15.3-44.8); MCV 79.7 fL (80-100); MPV 7.5 fL (7.6-11.3)
[2022-07-30 05:03] LABS: Protime INR 1.46
--- NOTE | 2022-07-30 05:18 | P.HP ---
Certification for Inpatient Patient admitted to: Observation With expected LOS: <2 Midnights Patient will require the following post-hospital care: None Practitioner: I am a practitioner with admitting privileges, knowledge of patient current condition, hospital course, and medical plan of care. Services: Services provided to patient in accordance with Admission requirements found in Title 42 Section 412.3 of the Code of Federal Regulations Patient History Date of Service: 07/30/22 Reason for admission: Chest Pain History of Present Illness: Patient is a 71-year-old female with history of ESRD on HD TTS, diabetes mellitus type 2insulin-dependent, CHF, hypertension, hyperlipidemia, chronic DVT on eliquis, presence of pacemaker/defibrillator and anemia of chronic disease who presented to the emergency department with complaints of chest pain. She reports her pain is on the right side of her chest, woke her up from sleep, and is described as pressure-like nonradiating. Troponin is negative. EKG with paced rhythm. labs demonstrating anemia and ESRD. Chest xray showed cardiomegaly without failure. ED provider wishes to admit patient for observation, ACS rule out. Allergies No Known Allergies Allergy (Verified 01/02/22 02:33) Home Medications: Furosemide [Lasix] 80 mg PO DAILY 04/14/20 Isosorbide Mononitrate [Isosorbide Mononitrate ER] 60 mg PO DAILY 04/14/20 Pramipexole [Mirapex*] 1 mg PO BEDTIME 04/14/20 Escitalopram [Lexapro*] 10 mg PO BEDTIME 11/27/21 Pantoprazole [Protonix Tab*] 40 mg PO DAILY 11/27/21 Doxazosin Mesylate 4 mg PO DAILY 01/02/22 Sevelamer Carbonate [Renvela*] 2 tab PO TIDWM 01/02/22 Rivastigmine Tartrate [Rivastigmine] 1 cap PO BID 05/03/22 Apixaban [Eliquis *] 2.5 mg PO BID #30 tab 05/08/22 Ertapenem Na [Invanz] 1 gm IVPB DAILY #5 ml 05/08/22 Heparin [Heparin 1,000 units/mL *] 4,000 unit IV EVERY HD PRN vial 05/08/22 Heparin [Heparin 1,000 units/mL *] 6,000 unit IV EVERY HD PRN vial 05/08/22 Gabapentin 100 mg PO BID 07/19/22 Midodrine HCl 5 mg PO BID 07/19/22 - Past Medical/Surgical History Diabetic: Yes -: Diabetes mellitus type 2-insulin dependent -: Rheumatoid arthritis -: Hypertension -: Hyperlipidemia -: Chronic congestive heart failure-unknown EF -: ESRD on HD -: CAD -: L ankle fusion -: hysterectomy -: Dialysis catheter placement and removal -: Cholecystectomy -: pacemaker/defibrillator Psychosocial/ Personal History: Patient lives with her - Social History Smoking Status: Never smoker Alcohol use: No CD- Drugs: No Caffeine use: No Place of Residence: Home Review of Systems Cardiovascular: Chest Pain Physical Examination - Vital Signs Blood Pressure: 144/45 Pulse: 80 Respirations: 16 Pulse Ox (%): 96 - Physical Exam General: Alert, In no apparent distress HEENT: Atraumatic, EOMI, Sclerae nonicteric Neck: Supple, 2+ carotid pulse no bruit Respiratory: Clear to auscultation bilaterally, Normal air movement Cardiovascular: Regular rate/rhythm, Normal S1 S2 Gastrointestinal: Normal bowel sounds, No tenderness Musculoskeletal: No tenderness Integumentary: No rashes Neurological: Normal speech, Normal affect - Studies Laboratory Data (last 24 hrs) 07/30/22 04:38: PT 16.1 H, INR 1.46 07/30/22 04:38: WBC 9.10, Hgb 8.9 L, Hct 27.1 L, Plt Count 485 H Assessment and Plan - Problems (Diagnosis) (1) Coronary artery disease Current Visit: Yes Status: Acute Qualifiers: Coronary Disease-Associated Artery/Lesion type: bypass graft [place] vs. transplanted heart: [place] heart Associated angina: with unstable angina Qualified Code(s): I25.700 - Atherosclerosis of coronary artery bypass graft(s), unspecified, with unstable angina pectoris (2) ESRD (end stage renal disease) Current Visit: Yes Status: Chronic (3) Anemia Current Visit: Yes Status: Chronic Qualifiers: Anemia type: due to chronic kidney disease Chronic kidney disease stage: on chronic dialysis Qualified Code(s): N18.6 - End stage renal disease; D63.1 - Anemia in chronic kidney disease; Z99.2 - Dependence on renal dialysis (4) COPD (chronic obstructive pulmonary disease) Current Visit: Yes Status: Chronic Qualifiers: COPD type: unspecified COPD Qualified Code(s): J44.9 - Chronic obstructive pulmonary disease, unspecified (5) Diabetes Current Visit: Yes Status: Chronic Qualifiers: Diabetes mellitus type: type 2 Diabetes mellitus return agent airport insulin use: with return agent airport use Diabetes mellitus complication status: with hyperglycemia Qualified Code(s): E11.65 - Type 2 diabetes mellitus with hyperglycemia; Z79.4 - dynamiter (current) use of insulin - Plan Patient is admitted for observation, ACS rule out. Trend troponins, monitor on telemetry, cardiology consulted. Nephrology consulted, patient goes to dialysis TTS. ACHS Accu-Chek, sliding scale insulin, A1c. Continue home eliquis 2.5 BID. Monitor and replete electrolytes per protocol. Discharge Plan: Home Plan to discharge in: 24 Hours - Advance Directives Does patient have a Living Will: No Does patient have a Durable POA for Healthcare: No - Code Status/Comfort Care Code Status Assessed: Yes Code Status: Full Code Physician Review: Patient Assessed, Agree with Above Assessment and Plan Critical Care: No Time Spent Managing Pts Care (In Minutes): 50
[2022-07-30 05:29] LABS: Albumin 2.4 g/dL (3.4-5.0); Bilirubin Direct 0.2 mg/dL (0-0.2); Bilirubin Total 0.4 mg/dL (0.2-1.0); Protein, Total 6.7 g/dL (6.4-8.2); Troponin High Sensitivity 21.7 pg/mL (<58.9)
[2022-07-30 05:30] LABS: Potassium 3.8 mmol/L (3.5-5.1)
[2022-07-30 06:04] LABS: SARS-COV-2 RT PCR NEGATIVE (NEGATIVE)
[2022-07-30] MEDS ORDERED: ACETAMINOPHEN 500 MG TAB PO PRN (06:48)
[2022-07-30] MEDS ORDERED: ONDANSETRON 4 MG/2 ML VIAL IV PRN (06:48)
[2022-07-30] MEDS ORDERED: ALBUTEROL 2.5 MG/3 ML NEB SOL NEB PRN (06:48)
[2022-07-30] MEDS: INSULIN -REGULAR HUMAN 50 UNIT/0.5 ML ML SQ SCH ×4 (07:30→21:00)
[2022-07-30] MEDS: APIXABAN 2.5 MG TABLET PO SCH ×2 (09:16→20:59)
[2022-07-30 09:38] LABS: Specific Gravity 1.008 (1.005-1.030); Urine Bacteria <20 /HPF (<20); Urine Bilirubin NEGATIVE (Negative); Urine Blood Trace (Negative); Urine Clarity Clear (Clear); Urine Color Light-Yellow (Yellow); Urine Glucose 1+ (Negative); Urine Protein 1+ (Negative); Urine RBC <5 /HPF (None Seen); Urine Urobilinogen Normal (Normal)
[2022-07-30] MEDS ORDERED: NA CHLORIDE 0.9% 1,000 ML IV PRN (09:45)
[2022-07-30] MEDS ORDERED: MANNITOL 25% 12.5 GM/50 ML VIAL IV PRN (09:45)
[2022-07-30] MEDS ORDERED: ALBUMIN HUMAN 25% 50 ML IV SCH (10:00)
--- NOTE | 2022-07-30 15:36 | P.PN ---
Date of Service: 07/30/22 Patient reports generalized weakness and fatigue. She has chest pain which is reproducible by palpation. On examination: Patient appears drowsy. Anterior chest is tender to palpation. Stable vitals. UA is negative for UTI Troponin trended negative ACS ruled out. Patient is undergoing hemodialysis today Right second and third fingertips are swollen and erythematous. Findings suggest renal osteodystrophy but onychonychia Patient states the swelling and erythema of both fingers have present for months. Obtain x-ray of the right hand.
[2022-07-30] MEDS ORDERED: EPOETIN ALFA 10,000 UNIT/ML VIAL IV SCH (17:00)
--- NOTE | 2022-07-30 17:04 | CON ---
Date of Consultation: 07/30/2022 Reason For Consultation: ESRD, on dialysis. History Of Present Illness: Ms. Cadet is a 71-year-old female with past medical history significant for history of ESRD, on dialysis, hypertension, type 2 diabetes, and history of chronic DVT, on Eliq uis, and history placement, presented to the ER with chest pain, radiating across her chest. She is reporting pain in the right side of her chest that woke her up from sleep and she was recently admitt ed to the hospital for urinary tract infection and was treated and discharged, and she was concerned that this was coming back. The patient has been admitted for chest pain, rule out for acute coronary syndrome. She was seen and examined on dialysis. She seems to be tolerating dialysis treatment wel l. Past Medical History: Significant for history of type 2 diabetes, rheumatoid arthritis, hypertension , hyperlipidemia, chronic diastolic heart failure, ESRD, left ankle fusion, hysterectomy, right upper arm AV fistula placement, history of pacemaker/defibrillator placement. Social History: No history of smoking, alcohol, or drug use reported. Review of Systems: As per history of present illness. Denies any shortness of breath. She continues to have chest pain at this time, but all other review of systems are negative. Physical Examination: Vital Signs: Showing temperature of 98.8, pulse rate of 80, respiratory rate of 18, and blood pressu re 117/51. General: She appears in no acute distress. HEENT: Shows atraumatic head. Lungs: Clear to auscultation. Heart: Auscultation of the heart revealed regular rate and rhythm. Right upper arm AV fistula with good bruit and thrill, working well. Extremities: Showed no evidence of edema. Neurologic: She is alert, awake, and oriented x3. Laboratory Data: Has been reviewed in detail. Impression: 1.End-stage renal disease, on dialysis. The patient is on Monday, , Monday dialysis sche dule. 2.Chest pain. Acute coronary syndrome is being ruled out. Troponins are trending. 3.Anemia secondary to end-stage renal disease. Currently with stable hemoglobin of 8.9. We will go ahead and order 1 time dose of Retacrit to maintain her hemoglobin levels. Otherwise, she appears s table from Nephrology standpoint and if acute coronary syndrome is ruled out, she can possibly be dis charged. VV/MODL Voice ID: [id number] Report ID: [id number]
--- NOTE | 2022-07-30 18:27 | RAD REPORT ---
EXAM DESCRIPTION: RAD - Hand Right 2 View - 07/30/2022 5:52 pm CLINICAL HISTORY: Assess for osteodystrophy COMPARISON: No comparisons FINDINGS: No acute fracture. No malalignment. Advanced degenerative changes are present at the first cmc joint.. Widened scapholunate interval. Peripheral vascular calcifications. Degenerative changes are present at the interphalangeal joints. IMPRESSION: No acute osseous abnormality involving the right hand.
--- NOTE | 2022-07-30 20:47 | RAD REPORT ---
EXAM DESCRIPTION: RAD - Chest Single View - 07/30/2022 3:52 am CLINICAL HISTORY: The patient is 71 years old and is Female; CHEST PAIN TECHNIQUE: Frontal view of the chest. COMPARISON: Chest radiograph June 08, 2022 FINDINGS: LUNGS: Unremarkable. No consolidation. PLEURAL SPACE: Unremarkable. No pneumothorax. HEART: The cardiac silhouette is enlarged. MEDIASTINUM: Unremarkable. BONES/JOINTS: Unremarkable. TUBES, LINES AND DEVICES: A left-sided pacemaker is noted. UPPER ABDOMEN: Unremarkable as visualized. IMPRESSION: Cardiomegaly without failure. E Lectronically signed by: Christy Dawn MD 07/30/2022 4:02 AM AIRLINE LOUNGE RECEPTIONIST Due to temporary technical issues with the PACS/Fluency reporting system, reports are being signed by the in house radiologists without review as a courtesy to insure prompt reporting. The interpreting radiologist is fully responsible for the content of the report.
[2022-07-31 04:21] VITALS: BMI 25.2
[2022-07-31 06:18] LABS: Hematocrit 29.1 % (36.0-45.0); Lymphocytes % 19.2 % (15.3-44.8); MCV 80.4 fL (80-100); RBC Red Blood Cell Count 3.62 M/uL (3.86-4.86)
[2022-07-31 06:33] LABS: AST/SGOT 7 U/L (15-37); Albumin 2.4 g/dL (3.4-5.0); Alkaline Phosphatase 124 U/L (45-117); BUN Blood Urea Nitrogen 30 mg/dL (7-18); Bicarbonate 28 mmol/L (21-32); Bilirubin Total 0.6 mg/dL (0.2-1.0); Glomerular Filtration Rate 17 ml/min (=/>90); Glucose Level 259 mg/dL (74-106); Phosphorus 4.9 mg/dL (2.5-4.9); Potassium 4.5 mmol/L (3.5-5.1); Protein, Total 6.8 g/dL (6.4-8.2); Sodium Level 134 mmol/L (136-145)
[2022-07-31 06:36] LABS: ALT/SGPT < 10 U/L (13-56)
[2022-07-31] MEDS ORDERED: EPOETIN ALFA 10,000 UNIT/ML VIAL IV ONE (08:00)
[2022-07-31] MEDS: APIXABAN 2.5 MG TABLET PO SCH (08:18)
[2022-07-31] MEDS: INSULIN -REGULAR HUMAN 50 UNIT/0.5 ML ML SQ SCH ×2 (08:52→11:30)
[2022-07-31 09:38] VITALS: O2SAT 96
[2022-07-31 13:03] VITALS: BP 120/49; TEMP 97.3
--- NOTE | 2022-07-31 13:57 | P.DS ---
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 Diabetes mellitus complication status: with hyperglycemia Qualified Code(s): E11.65 - Type 2 diabetes mellitus with hyperglycemia; Z79.4 - manager terminal (current) use of insulin (3) ESRD (end stage renal disease) Status: Chronic (4) Atypical chest pain Status: Acute Brief History of Present Illness: Patient is a 71-year-old female with history of ESRD on HD TTS, diabetes mellitus type 2insulin-dependent, CHF, hypertension, hyperlipidemia, chronic DVT on eliquis, presence of pacemaker/defibrillator and anemia of chronic disease who presented to the emergency department with complaints of chest pain. She reports her pain is on the right side of her chest, woke her up from sleep. Initial troponin negative. EKG with paced rhythm. Labs demonstrated anemia. Chest xray showed cardiomegaly without failure. Patient placed under observation for ACS rule out. Hospital Course: Patient placed on observation on the medical floor. UA is negative for UTI Troponin trended negative ACS ruled out. She had anterior chest pain which was reproducible by palpation indicating musculoskeletal chest pain. Patient underwent hemodialysis Right second and third fingertips are swollen and erythematous, firm, nontender, no warmth. Findings suggest renal osteodystrophy but onychonychia. X-ray of the hand did not show significant skeletal deformity. Patient states the swelling and erythema of both fingers have present for months. Could be fungal nail infection. Patient informed to follow-up with his PCP for treatment. She admitted to be treated for at least 6 weeks. Vital Signs/Physical Exam: Temp Pulse Resp BP Pulse Ox 97.3 F 78 18 120/49 L 98 07/31/22 12:00 07/31/22 12:00 07/31/22 12:00 07/31/22 12:07/31/22 12:00 General: Alert, In no apparent distress, Oriented x3 HEENT: Mucous membr. moist/pink Neck: JVD not distended Respiratory: Clear to auscultation bilaterally, Normal air movement Cardiovascular: No edema, Regular rate/rhythm, Normal S1 S2 Gastrointestinal: Soft and benign, Non-distended, No tenderness Musculoskeletal: No swelling Integumentary: No cyanosis Neurological: Normal strength at 5/5 x4 extr Laboratory Data at Discharge: WBC 10.20 K/uL (4.3-10.9) 07/31/22 06:05 Hgb 9.3 g/dL (12.0-15.0) L 07/31/22 06:05 Hct 29.1 % (36.0-45.0) L 07/31/22 06:05 Plt Count 475 K/uL (152-406) H 07/31/22 06:05 PT 16.1 SECONDS (9.5-12.5) H 07/30/22 04:38 INR 1.46 07/30/22 04:38 Sodium 134 mmol/L (136-145) L 07/31/22 06:05 Potassium 4.5 mmol/L (3.5-5.1) D 07/31/22 06:05 BUN 30 mg/dL (7-18) H 07/31/22 06:05 Creatinine 2.88 mg/dL (0.55-1.02) H 07/31/22 06:05 Glucose 259 mg/dL (74-106) H 07/31/22 06:05 Phosphorus 4.9 mg/dL (2.5-4.9) 07/31/22 06:05 Magnesium 2.0 mg/dL (1.6-2.4) 07/31/22 06:05 Total Bilirubin 0.6 mg/dL (0.2-1.0) 07/31/22 06:05 AST 7 U/L (15-37) L 07/31/22 06:05 ALT < 10 U/L (13-56) L 07/31/22 06:05 Alkaline Phosphatase 124 U/L (45-117) H 07/31/22 06:05 Lipase 57 U/L (13-75) 07/30/22 04:38 Home Medications: Furosemide [Lasix] 80 mg PO BID* 04/14/20 Isosorbide Mononitrate [Isosorbide Mononitrate ER] 60 mg PO DAILY 04/14/20 Escitalopram [Lexapro*] 10 mg PO BEDTIME 11/27/21 Pantoprazole [Protonix Tab*] 40 mg PO DAILY 11/27/21 Sevelamer Carbonate [Renvela*] 2 tab PO TIDWM 01/02/22 Apixaban [Eliquis *] 2.5 mg PO BID #30 tab 05/08/22 Gabapentin 100 mg PO BID 07/19/22 Midodrine HCl 5 mg PO BID 07/19/22 Heparin [Heparin 1,000 units/mL *] 3,000 unit IV EVERY HD PRN vial 07/31/22 Mannitol 25% [Mannitol*] 12.5 gm IV EVERY HD PRN vial 07/31/22 Diet: ADA Activity: Fall precautions Followup: Unknown,U [Primary Care Provider] - 1 Week
--- NOTE | 2022-08-01 16:28 | EKG ---
Test Date: 2022-07-30 Test Time: 03:09:37 Can Sterilizer: BRICE MEASUREMENT RESULTS: Intervals: Rate: 80 AR: QRSD: 138 QT: 452 QTc: 521 [place]: P: AR: QRS: -76 T: 79 INTERPRETIVE STATEMENTS: Sinus rhythm Left axis deviation Right bundle branch block Lateral infarct, age undetermined Inferior infarct, age undetermined Abnormal ECG Compared to ECG 07/19/2022 07:48:09 Right bundle-branch block now present Ventricular premature complex(es) no longer present Myocardial infarct finding still present Electronically Signed On 08-01-22 16:27:25 CDT by Lico Wilkins
== END 2022-07-31 15:20 | disposition home or self-care (01) ==
LOC: ER 02:48 → ERHOLD 05:12 → 2ND 06:22
PROVIDERS: ADMIT Internal Medicine; ATTEND Internal Medicine
DX: R07.9 Chest pain, unspecified (principal); E11.22 Type 2 diabetes mellitus with diabetic chronic kidney disease; E11.65 Type 2 diabetes mellitus with hyperglycemia; I82.409 Acute embolism and thrombosis of unspecified deep veins of unspecified lower extremity; I25.10 Atherosclerotic heart disease of native coronary artery without angina pectoris; I12.0 Hypertensive chronic kidney disease with stage 5 chronic kidney disease or end stage renal disease; D63.1 Anemia in chronic kidney disease; N18.6 End stage renal disease; E78.5 Hyperlipidemia, unspecified; Z99.2 Dependence on renal dialysis; Z79.4 Long term (current) use of insulin
CPT/HCPCS: 85025 ×2; 81001; 80048; 36415 ×2; 83735 ×2; 84100; 85610; 82947 ×6; 80076; 84484 ×3; 83690; 83970; 80053; 83880; 0240U; 71045; 73120; 90935; 94760 ×3; 96375; 96374; 99285; J1815 ×2; J2270; J1644; J2405; 93005

== ENCOUNTER 2022-09-18 16:37 | Observation (INO) | payer OTHER ==
--- OUTSIDE RECORDS SUMMARY | 2022-09-18 16:47 | XMS REPORT | Continuity of Care Document ---
:1950 Author Organization [facility] t Address [address] [facility] [address] [place] [address] Care Team Providers Name Role Phone Pcp, Patient Does Not Have A Primary Care Physician [phone] Greg Fuentes Attending Clinician Unavailable Doctor Unassigned, [place] Attending Clinician Unavailable Luc Alvarez Attending Clinician Alannah eRnner MD Attending Clinician Annalee Bey MD Attending Clinician Mauro Mendoza MD Attending Clinician ANNALEE BEY Attending Clinician Unavailable ALANNAH RENNER Attending Clinician Unavailable Derian HOLLIDAY, Trinidad Reza Attending Clinician Corrine Osuna MD Attending Clinician Natasha HOLLIDAY, Edwin Toribio Attending Clinician [phone] John HOLLIDAY, Shanon Vidal Attending Clinician [phone] Tim HOLLIDAY, Tammy Thompson Attending Clinician Armen HOLLIDAY, Edwin Attending Clinician Scot HOLLIDAY, Tasneem Attending Clinician Savannah HOLLIDAY, Annalee Attending Clinician Amaury HOLLIDAY, Leodan Attending Clinician Ru HOLLIDAY, Josemanuel Attending Clinician Andre Navarro Attending Clinician Juan BETH, Graznya Magana Attending Clinician Abbie HOLLIDAY, Joanna Attending [...] Number Effective Date Expiration Date S gus [facility] [id number] 2021 (NON-CONTRACTED) 00:00:00 [facility] [id number] 2021 [facility][NOTE 3] 00:00:00 [facility] [facility] [id number] 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 follows with Dr. Ngo in [place] Neuropathy Neuropathy Disease Active Overview : Univers Formattin ity of g of this [place] note Medical might be Branch different from the original. in feet and legs Hyperchole Hyperchole Disease Active Overview : Univers steremia steremia Formattin ity of g of this [place] note Medical might be Branch different from the original. follows with Dr. Higuera HTN HTN Disease Active Overview: [facility] s (hypertens (hypertens Formattin ity of ion) ion) g of this [place] note Medical might be Branch different from the original. follows with Dr. Higuera Atrial Atrial Disease Active Overview: [facility] s fibrillati fibrillati Formattin ity of on on g of this [place] note Medical might be Branch different from the original. follows with Dr. Higuera Allergies, Adverse Reactions, Alerts Allergy Allergy Status Severity Reaction(s) Onset Inactive Treating Comm ents Source Name Type Date Date Clinician No Known DA Active U [facility] Allergie -17 Clear s 00:00: Na 00 [facility] Hydrocod Propensi Active GI "not an Metho di one ty to Intolerance 06-02 allergy, st adverse 00:00: but it Hospita reaction 00 upsets my l s to stomach drug every time I take it" No Known DA Active U [facility] Allergie 01-30 Clear s 00:00: An 00 [facility] NO KNOWN Allergy Active [facility] NO KNOWN Drug Active [facility] ALLERGIE Class ity of S [place] [facility] Family [facility] Family Member Diagnosis Comments Start Date Stop Date Source Natural sister Breast cancer [facility] Natural sister Cancer [facility] Natural brother Cancer [facility] Natural brother Colon cancer [facility] Natural brother Lung cancer [facility] Maternal grandmother Brain cancer [facility] Maternal grandmother Cancer [facility] Natural mother Cancer [facility] Natural mother Uterine cancer [facility] Social History Social Habit Start Date Stop Date Quantity Comments Source History [facility] Alcohol Std Drinks Hospit al Gender identity [facility] Sexual orientation Method [facility] History of Social 2022-07-28 2022-07-[address] function 00:00:00 00:00:00 Hospital Tobacco use and 2022-01-08 2022-01-08 Never used [facility] exposure 00:00:00 00:00:00 Medical Center Alcohol intake 2021-09-14 2021-09-14 Current Amish 00:00:00 00:00:00 non-drinker of Hospital alcohol (finding) History SDOH 2020-04-05 2020-04-05 1 [facility] Alcohol Frequency 00:00:00 00:00:00 Hospita l History SDAL 2020-04-05 2020-04-05 1 [facility] Alcohol Binge 00:00:00 00:00:00 Hospital Sex [birth year] [facility] 00:00:00 00:00:00 Hospital Smoking Status Start Date Stop Date Source Never smoker [facility] Medications Ordered Filled Start Stop Current Ordering Indication Dosage Frequency Signature Comments Components Source Medication Medication Date Date Medication? Clinician (SIG) Name Name aspirin 81 0 Yes 81mg QD Take [address] MG chewable 8-30 by mouth Luke s tablet 16:49: daily. [facility] 03 Center apixaban 0 Yes 2.5mg Q.5D Take 2.[address] (Eliquis) 8-30 mg by [facility]ukes 2.5 mg Tab 16:49: mouth 2 Medi keira tablet 03 (two) Center times daily. pramipexole Yes 1mg QD Take [address] (MIRAPEX) 1 8-30 by mouth Luke s MG tablet 16:49: nightly. Medi [facility] Center semaglutide Yes .25mg Inject [facility] [...] 16:49: mouth Medical tablet 03 nightly. Center aspirin 81 0 Yes 81mg QD Take [address] MG chewable 8-30 by mouth Luke s tablet 16:49: daily. Medical 03 Center apixaban 0 Yes 2.5mg Q.5D Take 2.[address] (Eliquis) 8-30 mg by [facility]ukes 2.5 mg Tab 16:49: mouth 2 Medi keira tablet 03 (two) Center times daily. pramipexole 2021-0 Yes 1mg QD Take [address] (MIRAPEX) 1 8-30 by mouth Luke s MG tablet 16:49: nightly. [facility] 03 [place] semaglutide 0 Yes .25mg Inject [facility] [...] MG 16:49: mouth Medical tablet 03 nightly. Anna aspirin 81 2021-0 Yes 81mg QD Take [address] MG chewable 8-30 by mouth Luke s tablet 16:49: daily. [facility] 03 Anna apixaban 0 Yes 2.5mg Q.5D Take 2.[address] (Eliquis) 8-30 mg by Lukes 2.5 mg Tab 16:49: mouth 2 Medi keira tablet 03 (two) Center times daily. pramipexole 2021-0 Yes 1mg QD Take [address] (MIRAPEX) 1 8-30 by mouth Luke s MG tablet 16:49: nightly. [facility] 03 [place] semaglutide 0 Yes .25mg Inject [facility] [...] MG 16:49: mouth Medical tablet 03 nightly. [place] aspirin 81 2021-0 Yes 81mg QD Take [address] MG chewable 8-30 by mouth Luke s tablet 16:49: daily. [address] apixaban 2021-0 Yes 2.5mg Q.5D Take 2.[address] (Eliquis) 8-30 mg by Lukes 2.5 mg Tab 16:49: mouth 2 Medi keira tablet 03 (two) Center times daily. pramipexole 0 Yes 1mg QD Take [address] (MIRAPEX) 1 8-30 by mouth Luke s MG tablet 16:49: nightly. [address] semaglutide 0 Yes .25mg Inject [facility] (Ozempic) 8-30 0.25 mg Lukes 0.25 mg or 16:49: subcutaneo M edical 0.5 mg(2 03 usly every Cente r mg/1.5 mL) 7 days PnIj Every Monday . pantoprazol 0 Yes 40mg QD Take [address] e 8-30 by mouth Lukes (PROTONIX) 16:49: daily. Medic al [address] [place] [address] tablet traZODone 0 Yes 100mg QD Take [address] (DESYREL) 8-30 mg by Lukes 100 MG 16:49: mouth Medical tablet 03 nightly. Anna aspirin 81 0 Yes 81mg QD Take [address] MG chewable 8-30 by mouth Luke s tablet 16:49: daily. [address] apixaban 0 Yes 2.5mg Q.5D Take 2.[address] (Eliquis) 8-30 mg by Lukes 2.5 mg Tab 16:49: mouth 2 Medi keira tablet 03 (two) Center times daily. pramipexole 2021-0 Yes 1mg QD Take [address] (MIRAPEX) 1 8-30 by mouth Luke s MG tablet 16:49: nightly. [address] semaglutide 0 Yes .25mg Inject [facility] (Ozempic) 8-30 0.25 mg Lukes 0.25 mg or 16:49: subcutaneo M edical 0.5 mg(2 03 usly every Cente r mg/1.5 mL) 7 days PnIj Every Silvestre . pantoprazol Yes 40mg QD Take [address] e 8-30 by mouth Lukes (PROTONIX) 16:49: daily. Medic al 40 MG 03 Center tablet traZODone Yes 100mg QD Take [address] (DESYREL) 8-30 mg by Lukes 100 MG 16:49: mouth Medical tablet 03 nightly. Center hydrALAZINE 2021- No 25mg Q.[id number] Take [address] (APRESOLINE 01-18-30 [id number] by mouth 3 Lukes ) 25 MG [...] Take [address] (LASIX) 80 -18 01-30 by mouth 2 Camille kes MG tablet 11:55: 00:00 (two) Medica l 27 :00 times Center daily. escitalopra 2021- No 10mg QD Take [address] m oxalate 01-18- by mouth Lukes (LEXAPRO) 11:55: 00:00 nightly. Med ical 10 MG 27 :00 Anna tablet melatonin 2021- No 10mg QD Take [address] 10 mg TbDL 01-18 by mouth Luke s 11:55: 00:00 nightly. Medical 27 :00 Center insulin 2021- No 10U Inject [address] aspart 01-18- Units Lukes U-100 11:55: 00:00 subcutaneo Medic al (NovoLOG) 27 :00 usly 3 Center 100 unit/mL (three) (3 mL) InPn times daily before meals. calcitrioL 2021- No .25ug QD Take 0.[address] (ROCALTROL) 01-18 mcg by Lukes 0.25 MCG 11:55: 00:00 mouth Medical capsule 27 :00 daily. Center hydrALAZINE 2021- No 25mg Q.[id number] Take [address] (APRESOLINE 01-18 [id number] by mouth 3 Lukes ) 25 MG [...] 11:55: 00:00 nightly. Med ical 27 :00 [place] isosorbide 2021- No 60mg QD Take [address] mononitrate 01-1830 by mouth Christopher es (IMDUR) 60 11:55: [...] No 10U Inject [address] aspart 01-1830 Units Lukes U-100 11:55: 00:00 subcutaneo Medic al (NovoLOG) 27 :00 usly 3 Center 100 unit/mL (three) (3 mL) InPn times daily before meals. calcitrioL 2021- No .25ug QD Take 0.[address] (ROCALTROL) 01-18-30 mcg by Lukes 0.25 MCG 11:55: 00:00 mouth Medical capsule 27 :00 daily. Center hydrALAZINE 2021- No 25mg Q.[id number] Take [address] (APRESOLINE 01-18 [id number] by mouth 3 [facility]ukes ) 25 MG [...] 40U QD Inject [address] glargine 01-1830 Units Lukes (LANTUS, 11:55: 00:00 subcutaneo Me [...] :00 daily. Center hydrALAZINE 2021- No 25mg Q.[id number] Take [address] (APRESOLINE 01-18- [id number] by mouth 3 Lukes ) 25 MG [...] 00:00 subcutaneo Me dical SEMGLEE) 27 :00 [facility] Center 100 unit/mL nightly injection Use [...] :00 daily. Center hydrALAZINE 2021- No 25mg Q.[id number] Take [address] (APRESOLINE 01-18 [id number] by mouth 3 [facility] ) 25 MG [...] QD Take [address] mononitrate 01-1830 by mouth Christopher es (IMDUR) 60 11:55: [...] St -acetaminop 01-18 09-29 tablet by Camille pablo (NORCO 00:00: 23:59 [...] joint). Max Daily Amount: 4 tablets vancomycin 2021-0 2- No 125mg Q2D Take 1 Met hodi (Vancocin) 10-11-[address] 125 MG 00:00: 04:59 (125 mg Hospita capsule 00 :00 total) by l mouth every other day for 7 doses. vancomycin 2021-0 2- No 125mg Q2D Take 1 Met hodi (Vancocin) 10-11-[address] 125 MG 00:00: 04:59 (125 mg Hospita capsule 00 :00 total) by l mouth every other day for 7 doses. vancomycin 2021-0 2- No 125mg Q2D Take 1 Met hodi (Vancocin) 10-11-[address] 125 MG 00:00: 04:59 (125 mg Hospita capsule 00 :00 total) by l mouth every other day for 7 doses. vancomycin 2-0 2022- No 125mg QD Take 1 Met hodi (Vancocin) -04 10-[address] 125 MG 00:00: 04:59 (125 mg Hospita capsule 00 :00 total) by l mouth daily for 7 doses. vancomycin 2-0 2022- No 125mg QD Take 1 Met hodi (Vancocin) -04 10-[address] 125 MG 00:00: 04:59 (125 mg Hospita capsule 00 :00 total) by l mouth daily for 7 doses. vancomycin 2021- No 125mg QD Take 1 Met hodi (Vancocin) 5-16 05-[address] 125 MG 00:00: 04:59 (125 mg Hospita capsule 00 :00 total) by l mouth daily for 7 doses. vancomycin 2021- No 125mg Q.5D Take 1 Met hodi (Vancocin) 09-26-[address] 125 MG 00:00: 04:59 (125 mg Hospita capsule 00 :00 total) by l mouth 2 (two) times a day for 14 doses. vancomycin 2021- No 125mg Q.5D Take 1 Met hodi (Vancocin) 09-26-[address] 125 MG 00:00: 04:59 (125 mg Hospita capsule 00 :00 total) by l mouth 2 (two) times a day for 14 doses. vancomycin 2021- No 125mg Q.5D Take 1 Met hodi (Vancocin) 09-26-[address] 125 MG 00:00: 04:59 (125 mg Hospita capsule 00 :00 total) by l mouth 2 (two) times a day for 14 doses. vancomycin 2021- No 125mg Q.[id number] Take 1 Methodi (Vancocin) 09-24-[id number] 125 MG 00:00: 04:59 3D (125 mg Hospita capsule 00 :00 total) by l mouth 3 (three) times a day for 8 doses. vancomycin 2021- No 125mg Q.[id number] Take 1 [facility]i (Vancocin) 09-24 05-[id number] 125 MG 00:00: 04:59 3D (125 mg Hospita capsule 00 :00 total) by l mouth 3 (three) times a day for 8 doses. vancomycin 2021- No 125mg Q.[id number] Take 1 [facility] (Vancocin) 09-24 05-[id number] 125 MG 00:00: 04:59 3D (125 mg Hospita capsule 00 :00 total) by l mouth 3 (three) times a day for 8 doses. apixaban 2021-0 Yes 2.5mg Q.5D Take 2.5 Meth ramiro (ELIQUIS) 4-[address] 2.5 mg 18:55: mouth 2 Hospita tablet 03 (two) l times a day. apixaban 2021-0 Yes 2.5mg Q.5D Take 2.5 Meth ramiro (ELIQUIS) 4-[address] 2.5 mg 18:55: mouth 2 Hospita tablet 03 (two) l times a day. apixaban 2021-0 Yes 2.5mg Q.5D Take 2.5 Meth ramiro (ELIQUIS) 4-[address] 2.5 mg 18:55: mouth 2 Hospita tablet 03 (two) l times a day. metoprolol 2021-2021- No 100mg Q.5D Take 100 M ethodi tartrate 4-29 04-[address] (LOPRESSOR) 18:55: 00:00 mouth 2 Ho spita 100 mg 03 :00 (two) l tablet times a day. furosemide 2021-2021- No 40mg Q.5D Take 40 mg Methodi (LASIX) 40 4- 04-[address] mg tablet 18:55: 00:00 (two) Hospit a 03 :00 times a l day. metoprolol 2021-0 2021- No 100mg Q.5D Take 100 M ethodi tartrate 4-29 04-[address] (LOPRESSOR) 18:55: 00:00 mouth 2 Ho spita 100 mg 03 :00 (two) l tablet times a day. furosemide 2021-2021- No 40mg Q.5D Take 40 mg [facility]i (LASIX) 40 4-29 04-[address] mg tablet 18:55: 00:00 (two) Hospit a 03 :00 times a l day. BUMETanide 2021-0 2021- No 1mg QD Take 1 mg M ethodi (BUMEX) 1 4- 04-[address] MG tablet 18:55: 00:00 daily. Hospi ta 55 :00 l BUMETanide 2021-2021- No 1mg QD Take 1 mg M ethodi (BUMEX) 1 4- 04-[address] MG tablet 18:55: 00:00 daily. Hospi ta 55 :00 l pramipexole 2022-0 Yes 1mg QD Take 1 mg M ethodi (MIRAPEX) 1 4-[address] MG tablet 18:55: nightly. [facility] 51 l melatonin 2022-0 Yes 10mg QD Take 10 mg Me thodi 10 mg 4-[address] capsule 18:55: daily. Hospita 51 l traZODone 2022-0 Yes 100mg QD Take 100 Met hodi (DESYREL) 4-[address] 100 MG 18:55: mouth Hospita tablet 51 nightly. l isosorbide 2022-0 Yes 60mg QD Take 60 mg M ethodi mononitrate 4-[address] (IMDUR) 60 18:55: daily. Hospi ta MG 24 hr 51 l tablet escitalopra 2-0 Yes 10mg QD Take 10 mg Methodi m (LEXAPRO) 4-[address] 10 MG 18:55: daily. Hospita tablet 51 l calcitrioL 2-0 Yes .25ug QD Take 0.25 M ethodi (ROCALTROL) 4-[address] 0.25 MCG 18:55: mouth Hospita capsule 51 daily. l pramipexole 2-0 Yes 1mg QD Take 1 mg M ethodi (MIRAPEX) 1 4-[address] MG tablet 18:55: nightly. [facility] 51 l melatonin 2-0 Yes 10mg QD Take 10 mg Me thodi 10 mg 4-[address] capsule 18:55: daily. Hospita 51 l traZODone 2-0 Yes 100mg QD Take 100 Met hodi (DESYREL) 4-[address] 100 MG 18:55: mouth Hospita tablet 51 nightly. l isosorbide 2022-0 Yes 60mg QD Take 60 mg M [...] mouth Hospita capsule 51 daily. l pramipexole Yes 1mg QD Take 1 mg M [...] MG 24 hr 51 l tablet escitalopra Yes 10mg QD Take 10 mg Methodi m (LEXAPRO) 4-[address] 10 MG 18:55: daily. Hospita tablet 51 l calcitrioL 0 Yes .25ug QD Take 0.25 M ethodi (ROCALTROL) 4-[address] 0.25 MCG 18:55: mouth Hospita capsule 51 daily. l hydrALAZINE 2021- No 25mg Q.[id number] Take 1 Methodi (APRESOLINE -16 10- [id number] tablet (25 st ) 25 MG 00:00: [...] 40mg QD Take 1 Met hodi e -16 10-29 tablet (40 st (Protonix) 00:00: 04:59 mg total) H ospita 40 MG EC 00 :00 by mouth l tablet daily for 30 days. hydrALAZINE 2021- No 25mg Q.[id number] Take 1 [facility]i (APRESOLINE 4-16 10-29 [id number] tablet (25 st ) 25 MG 00:00: [...] 40mg QD Take 1 Met hodi e 09-16-29 tablet (40 st (Protonix) 00:00: 04:59 mg total) H ospita 40 MG EC 00 :00 by mouth l tablet daily for 30 days. hydrALAZINE 2021- No 25mg Q.[id number] Take 1 Methodi (APRESOLINE 09-16-29 [id number] tablet (25 st ) 25 MG 00:00: [...] Q.25D Take 1 Me thodi (Vancocin) 09-[address] 125 MG 00:00: 04:59 (125 mg Hospita capsule 00 :00 total) by l mouth 4 (four) times a day for 8 days. clonIDINE No .1mg QD Take 0.1 Met hodi [...] l insulin 2021- No Inject Methodi LISPRO 08-14- under the st PROTAMIN-LI 19:46: 00:00 skin. [...] QD Chew 1 Meth ramiro mg chewable 08-14-28 tablet (81 s t tablet 00:00: 00:00 mg total) Hospi ta 00 :00 daily for l 30 days. aspirin 81 2021- No 81mg QD Chew 1 Meth ramiro mg chewable -14 09-28 tablet (81 s t tablet 00:00: 00:00 mg total) Hospi ta 00 :00 daily for l 30 days. metoprolol 2021- No 100mg Q.5D Take 100 M ethodi tartrate 08-13 03-[address] (LOPRESSOR) 19:46: 00:00 mouth 2 Ho spita 100 mg 31 :00 (two) l tablet times a day. hydrALAZINE 2021- No 100mg Q.[id number] Take 100 Methodi (APRESOLINE 3-25 03-[id number] ) 100 MG 19:46: [...] times a day. hydrALAZINE 2021- No 100mg Q.[id number] Take 100 [facility] (APRESOLINE 3-25 03-[id number] ) 100 MG 19:46: [...] :00 (two) l times a day. insulin 2021- No 12U [...] for 30 days. hydrALAZINE 2021- No 50mg Q.[id number] Take 1 [facility] (APRESOLINE -13 09-28 [id number] tablet (50 st ) 50 MG 00:00: [...] for 30 days. hydrALAZINE 2021- No 50mg Q.[id number] Take 1 [facility] (APRESOLINE 3-25 -28 [id number] tablet (50 st ) 50 MG 00:00: 00:00 3D mg total) [facility] tablet 00 :00 by mouth l every 8 (eight) hours for 30 days. insulin 2021- No 20U QD Inject 0.2 Met hodi GLARGINE -15 -15 mL (20 st (LANTUS) 00:00: 05:59 Units [...] 100mg Q.5D Take 1 Me thodi (APRESOLINE 1-14 -[address] ) 100 MG 00:00: 05:59 (100 mg Hospi ta tablet 00 :00 total) by l mouth 2 (two) times a day with meals for 30 days. isosorbide 0 2021- No 60mg QD Take 1 Meth ramiro mononitrate -14 -14 tablet (60 s t (IMDUR) 60 00:00: 05:59 mg total) H ospita MG 24 hr 00 :00 by mouth l tablet every morning for 30 days. fluticasone 2021-2021- No 100ug QD 2 sprays Methodi propionate -14 -14 ([address] (FLONASE) 00:00: 05:59 total) [...] morning for 30 days. levalbutero 2021- No [id number] 1.25mg Q8H Take 3 mL Methodi l [...] for 30 days. insulin 2021- No 5U Q.[id number] Inject M ethodi LISPRO 06-04 [id number] 0.05 mL (5 st (ADMELOG) 00:00: 05:59 3D Units Hospit a 100 unit/mL 00 :00 total) l subcutaneou under the s vial skin 3 (three) times a day with meals for 30 days. nystatin 2021- No Apply Methodi (MYCOSTATIN 06-[address] ) 100,000 00:00: 05:59 as needed Ho spita unit/gram 00 :00 (rash) for l powder up to 30 days. budesonide 2020-05 Yes 3mg Q.[id number] Take 3 mg Methodi EC 2-12 [id number] by mouth 3 st (ENTOCORT 00:00: 3D (three) Hospi ta EC) 3 mg 24 00 times a l hr capsule day. budesonide 2020-05 Yes 3mg Q.[id number] Take 3 mg Methodi EC 2-12 [id number] by mouth 3 st (ENTOCORT 00:00: 3D (three) Hospi ta EC) 3 mg 24 00 times a l hr capsule day. budesonide 2020-05 Yes 3mg Q.[id number] Take 3 mg Methodi EC 2-12 [id number] by mouth 3 st (ENTOCORT 00:00: 3D (three) Hospi ta EC) 3 mg 24 00 times a l hr capsule day. triamcinolo 2021- No 1{appli Q.5D Apply 1 Methodi ne 12-07 cation} applicatio st (KENALOG) 00:00: 00:00 n Hospita 0.1 % cream 00 :00 topically l 2 (two) times a day. Under breast and between legs triamcinolo 2021- No 1{appli Q.5D Apply 1 Methodi ne 12-07 cation} applicatio st (KENALOG) 00:00: 00:00 n Hospita 0.1 % cream 00 :00 topically l 2 (two) times a day. Under breast and between legs allopurinol Yes [id number] 150mg Take 150 Univers (ZYLOPRIM) 1-04 mg by ity of 100 mg 15:21: mouth [place] tablet 32 daily. Medical Branch CALCIUM Yes .25mg Take 0.25 Univ ers CARBONATE/V 1-04 mg by ity of ITAMIN D3 15:21: mouth [place] (VITAMIN 32 daily. Medical D-3 ORAL) Branch allopurinol Yes [id number] 150mg Take 150 Univers (ZYLOPRIM) 1-04 mg by ity of 100 mg 15:21: mouth [place] tablet 32 daily. Medical Branch CALCIUM Yes .25mg Take 0.25 Univ ers CARBONATE/V 1-04 mg by ity of ITAMIN D3 15:21: mouth [place] (VITAMIN 32 daily. Medical D-3 ORAL) Branch allopurinol Yes [id number] 150mg Take 150 Univers (ZYLOPRIM) 1-04 mg by ity of 100 mg 15:21: mouth [place] tablet 32 daily. Medical Branch CALCIUM Yes .25mg Take 0.25 Univ ers CARBONATE/V 1-04 mg by ity of ITAMIN D3 15:21: mouth [place] (VITAMIN 32 daily. Medical D-3 ORAL) Branch allopurinol Yes [id number] 150mg Take 150 Univers (ZYLOPRIM) 1-04 mg by ity of 100 mg 15:21: mouth [place] tablet 32 daily. Medical Branch CALCIUM Yes .25mg Take 0.25 Univ ers CARBONATE/V 1-04 mg by ity of ITAMIN D3 15:21: mouth [place] (VITAMIN 32 daily. Medical D-3 ORAL) Branch allopurinol Yes [id number] 150mg Take 150 Univers (ZYLOPRIM) 1-04 mg by ity of 100 mg 15:21: mouth [place] tablet 32 daily. Medical Branch CALCIUM Yes .25mg Take 0.25 Univ ers CARBONATE/V 1-04 mg by ity of ITAMIN D3 15:21: mouth [place] (VITAMIN 32 daily. Medical D-3 ORAL) Branch allopurinol Yes [id number] 150mg Take 150 Univers (ZYLOPRIM) 1-04 mg by ity of 100 mg 15:21: mouth [place] tablet 32 daily. Medical Branch allopurinol Yes [id number] 150mg Take 150 Univers (ZYLOPRIM) 1-04 mg by ity of 100 mg 15:21: mouth [place] tablet 32 daily. Medical Branch CALCIUM Yes .25mg Take 0.25 Univ ers CARBONATE/V 1-04 mg by ity of ITAMIN D3 15:21: mouth [place] (VITAMIN 32 daily. Medical D-3 ORAL) Branch allopurinol Yes [id number] 150mg Take 150 Univers (ZYLOPRIM) 1-04 mg [...] daily. Medical D-3 ORAL) Branch allopurinol Yes [id number] 150mg Take 150 Univers (ZYLOPRIM) 1-04 mg by ity of 100 mg 15:21: mouth [place] tablet 32 daily. Medical Branch CALCIUM Yes .25mg Take 0.25 Univ ers CARBONATE/V 1-04 mg by ity of ITAMIN D3 15:21: mouth [place] (VITAMIN 32 daily. Medical D-3 ORAL) Branch allopurinol Yes [id number] 150mg Take 150 Univers (ZYLOPRIM) 1-04 mg by ity of 100 mg 15:21: mouth [place] tablet 32 daily. Medical Branch CALCIUM Yes .25mg Take 0.25 Univ ers CARBONATE/V 1-04 mg by ity of ITAMIN D3 15:21: mouth [place] (VITAMIN 32 daily. Medical D-3 ORAL) Branch allopurinol Yes [id number] 150mg Take 150 Univers (ZYLOPRIM) 1-04 mg by ity of 100 mg 15:21: mouth [place] tablet 32 daily. Medical Branch CALCIUM Yes .25mg Take 0.25 Univ ers CARBONATE/V 1-04 mg by ity of ITAMIN D3 15:21: mouth [place] (VITAMIN 32 daily. Medical D-3 ORAL) Branch furosemide Yes [id number] 40mg Take 40 mg Univers (LASIX) 20 1-04 by mouth ity o f mg tablet 15:19: daily. [address] furosemide Yes [id number] 40mg Take 40 mg Univers (LASIX) 20 1-04 by mouth ity o f mg tablet 15:19: daily. [address] furosemide Yes [id number] 40mg Take 40 mg Univers (LASIX) 20 1-04 by mouth ity o f mg tablet 15:19: daily. [address] furosemide Yes [id number] 40mg Take 40 mg Univers (LASIX) 20 1-04 by mouth ity o f mg tablet 15:19: daily. [address] furosemide Yes [id number] 40mg Take 40 mg Univers (LASIX) 20 1-04 by mouth ity o f mg tablet 15:19: daily. [address] furosemide Yes [id number] 40mg Take 40 mg Univers (LASIX) 20 1-04 by mouth ity o f mg tablet 15:19: daily. [address] furosemide Yes [id number] 40mg Take 40 mg Univers (LASIX) 20 1-04 by mouth ity o f mg tablet 15:19: daily. [address] furosemide Yes [id number] 40mg Take 40 mg Univers (LASIX) 20 1-04 by mouth ity o f mg tablet 15:19: daily. [address] furosemide Yes [id number] 40mg Take 40 mg Univers (LASIX) 20 1-04 by mouth ity o f mg tablet 15:19: daily. [address] furosemide Yes [id number] 40mg Take 40 mg Univers (LASIX) 20 1-04 by mouth ity o f mg tablet 15:19: daily. [address] furosemide Yes [id number] 40mg Take 40 mg Univers (LASIX) 20 1-04 by mouth ity o f mg tablet 15:19: daily. [address] Golimumab Yes [id number] inject U nivers (SIMPONI) 1-04 under the ity o f 50 mg/0.5 15:18: skin. [place] mL 20 Infusion Medical injection every 8 Branch weeks for rheumatoid arthritis. Golimumab Yes [id number] inject U nivers (SIMPONI) 1-04 under the ity o f 50 mg/0.5 15:18: skin. [place] mL 20 Infusion Medical injection every 8 Branch weeks for rheumatoid arthritis. Golimumab Yes [id number] inject U nivers (SIMPONI) 1-04 under the ity o f 50 mg/0.5 15:18: skin. [place] mL 20 Infusion Medical injection every 8 Branch weeks for rheumatoid arthritis. Golimumab Yes [id number] inject U nivers (SIMPONI) 1-04 under the ity o f 50 mg/0.5 15:18: skin. [place] mL 20 Infusion Medical injection every 8 Branch weeks for rheumatoid arthritis. Golimumab Yes [id number] inject U nivers (SIMPONI) 1-04 under the ity o f 50 mg/0.5 15:18: skin. [place] mL 20 Infusion Medical injection every 8 Branch weeks for rheumatoid arthritis. Golimumab Yes [id number] inject U nivers (SIMPONI) 1-04 under the ity o f 50 mg/0.5 15:18: skin. [place] mL 20 Infusion Medical injection every 8 Branch weeks for rheumatoid arthritis. Golimumab Yes [id number] inject U nivers (SIMPONI) 1-04 under the ity o f 50 mg/0.5 15:18: skin. [place] mL 20 Infusion Medical injection every 8 Branch weeks for rheumatoid arthritis. Golimumab Yes [id number] inject U nivers (SIMPONI) 1-04 under the ity o f 50 mg/0.5 15:18: skin. [place] mL 20 Infusion Medical injection every 8 Branch weeks for rheumatoid arthritis. Golimumab Yes [id number] inject U nivers (SIMPONI) 1-04 under the ity o f 50 mg/0.5 15:18: skin. [place] mL 20 Infusion Medical injection every 8 Branch weeks for rheumatoid arthritis. Golimumab Yes [id number] inject U nivers (SIMPONI) 1-04 under the ity o f 50 mg/0.5 15:18: skin. [place] mL 20 Infusion Medical injection every 8 Branch weeks for rheumatoid arthritis. Golimumab Yes [id number] inject U nivers (SIMPONI) 1-04 under the ity o f 50 mg/0.5 15:18: skin. [place] mL 20 Infusion Medical injection every 8 Branch weeks for rheumatoid arthritis. linagliptin Yes [id number] Take by Univers (TRADJENTA) 1-04 mouth. ity [...] 2 [place] tablet 03 (two) Medical times [place] daily with meals. linagliptin 2017-0 Yes [id number] Take by Univers (TRADJENTA) 1-04 mouth. ity of 5 mg tablet 14:33: [place] [facility] apixaban 2017-0 Yes 5mg Take [...] 2 [place] tablet 03 (two) Medical times [place] daily with meals. linagliptin 2017-0 Yes [id number] Take by Univers (TRADJENTA) 1-04 mouth. ity of 5 mg tablet 14:33: [place] [facility] linagliptin 2017-0 Yes [id number] Take by Univers (TRADJENTA) 1-04 mouth. ity of 5 mg tablet 14:33: [place] [facility] apixaban 2017-0 Yes 5mg Take [...] 2 [place] tablet 03 (two) Medical times [place] daily with meals. linagliptin 2017-0 Yes [id number] Take by Univers (TRADJENTA) 1-04 mouth. ity [...] 2 [place] tablet 03 (two) Medical times [place] daily with meals. linagliptin 2017-0 Yes [id number] Take by Univers (TRADJENTA) 1-04 mouth. ity [...] Medical times Branch daily with meals. linagliptin 2016-0 Yes [id number] Take by Univers (TRADJENTA) 1-04 mouth. ity [...] Branch daily with meals. linagliptin 2017-0 Yes [id number] Take by Univers (TRADJENTA) 1-04 mouth. ity [...] 2 [place] tablet 03 (two) Medical times [place] daily with meals. linagliptin 2017-0 Yes [id number] Take by Univers (TRADJENTA) 1-04 mouth. ity [...] 2 [place] tablet 03 (two) Medical times [place] daily with meals. linagliptin 2017-0 Yes [id number] Take by Univers (TRADJENTA) 1-04 mouth. ity [...] Medical times Branch daily with meals. linagliptin 2017 Yes [id number] Take by Univers (TRADJENTA) 1-04 mouth. ity [...] Medical times Branch daily with meals. pramipexole 2017 Yes [id number] 2mg Take 2 Univers (MIRAPEX) 1 1-04 tablets by [place] mg [place] bed[place] [facility] pramipexole 0 Yes [id number] 2mg Take 2 Univers (MIRAPEX) 1 1-04 tablets by [place] y of mg tablet [place]: [place] bed[place]. [facility] pramipexole Yes [id number] 2mg Take 2 Univers (MIRAPEX) 1 1-04 tablets by [place] y of mg tablet 00:[place]: [place] 00 bed[place]. [facility] Branch pramipexole Yes [id number] 2mg Take 2 Univers (MIRAPEX) 1 1-04 tablets by [place] of mg tablet [place]: [place] bed[place]. [facility] Branch pramipexole Yes [id number] 2mg Take 2 Univers (MIRAPEX) 1 1-04 tablets by [place] y of mg tablet 00:[place]: [place] bed[place] [facility] Branch pramipexole Yes [id number] 2mg Take 2 Univers (MIRAPEX) 1 1-04 tablets by [place] y of mg tablet 00:[place]: [place] bed[place] [facility] Branch pramipexole Yes [id number] 2mg Take 2 Univers (MIRAPEX) 1 1-04 tablets by it y of mg tablet 00:[place]: [place] bed[place]. [facility] Branch pramipexole Yes [id number] 2mg Take 2 Univers (MIRAPEX) 1 1-04 tablets by [place] y of mg tablet 00:[place]: [place] bed[place] [facility] Branch pramipexole Yes [id number] 2mg Take 2 Univers (MIRAPEX) 1 1-04 tablets by it y of mg tablet 00:[place]: [place] bed[place]. [facility] Branch pramipexole Yes [id number] 2mg Take 2 Univers (MIRAPEX) 1 1-04 tablets by it y of mg tablet [place]: [place] bed[place]. [facility] Branch pramipexole Yes [id number] 2mg Take 2 Univers (MIRAPEX) 1 1-04 [...] Medical times Branch daily. glipiZIDE 2015-05 Yes [id number] 10mg Take 1 [place] XL 1-16 tablet by ity of (GLUCOT[place]OL 00:00: mouth [place] XL[place] 10 mg 00 (two) Medical 24 hr times Branch tablet daily. glipiZIDE 2015-05 Yes [id number] 10mg Take 1 [place] XL 1-16 tablet by ity of (GLUCOTROL 00:00: mouth [place] XL) 10 mg 00 (two) Medical 24 hr times Branch tablet daily. glipiZIDE 2015-05 Yes [id number] 10mg Take 1 [facility] [place] XL 1-16 tablet by ity of (GLUCOTROL 00:00: mouth [place] XL) 10 mg 00 (two) Medical 24 hr times Branch tablet daily. glipiZIDE 2015-05 Yes [id number] 10mg Take 1 [place] XL 1-16 tablet by ity of (GLUCOTROL 00:00: mouth [place] XL) 10 mg 00 (two) Medical 24 hr times Branch tablet daily. glipiZIDE 2015-05 Yes [id number] 10mg Take 1 [place] XL 1-16 tablet by ity of (GLUCOTROL 00:00: mouth [place] XL) 10 mg 00 (two) Medical 24 hr times Branch tablet daily. glipiZIDE 2015-05 Yes [id number] 10mg Take 1 [place] XL 1-16 tablet by ity of (GLUCOTROL 00:00: mouth 2 [place] XL) 10 mg 00 (two) Medical 24 hr times Branch tablet daily. glipiZIDE 2015-05 Yes [id number] 10mg Take 1 [place] XL 1-16 tablet by ity of (GLUCOTROL 00:00: mouth [place] XL) 10 mg 00 (two) Medical 24 hr times Branch tablet daily. glipiZIDE 2015-05 Yes [id number] 10mg Take 1 [place] XL 1-16 tablet by ity of (GLUCOTROL 00:00: mouth [place] XL) 10 mg 00 (two) Medical 24 hr times Branch tablet daily. glipiZIDE 2015-05 Yes [id number] 10mg Take 1 [facility] [place] XL 1-16 tablet by ity of (GLUCOTROL 00:00: mouth [place] XL) 10 mg 00 (two) Medical 24 hr times Branch tablet daily. glipiZIDE 2015-05 Yes [id number] 10mg Take 1 [place] XL 1-16 tablet by ity of (GLUCOTROL 00:00: mouth [place] XL) 10 mg 00 (two) Medical 24 hr times Branch tablet daily. glipiZIDE 2015-05 Yes [id number] 10mg Take 1 [facility] [place] XL 1-16 tablet by ity of (GLUCOTROL 00:00: mouth 2 [place] XL) 10 mg 00 (two) Medical 24 hr times Branch tablet daily. atorvastati 2015-05 Yes [id number] 10mg Take 1 Univers n (LIPITOR) 1-02 tablet by ity of 10 mg 00:00: mouth at [place] tablet 00 bedtime. [facility]05 Yes [id number] 10mg Take 1 Univers n (LIPITOR) 1-02 tablet by ity of 10 mg 00:00: mouth at [place] tablet 00 bedtime. [facility]05 Yes [id number] 10mg Take 1 Univers n (LIPITOR) 1-02 tablet by ity of 10 mg 00:00: mouth at [place] tablet 00 bedtime. [facility]05 Yes [id number] 10mg Take 1 Univers n (LIPITOR) 1-02 tablet by ity of 10 mg 00:00: mouth at [place] tablet 00 bedtime. [facility]05 Yes [id number] 10mg Take 1 Univers n (LIPITOR) 1-02 tablet by ity of 10 mg 00:00: mouth at [place] tablet 00 bedtime. [facility] Yes [id number] 10mg Take 1 Univers n (LIPITOR) 1-02 tablet by ity of 10 mg 00:00: mouth at [place] tablet 00 bedtime. [facility]05 Yes [id number] 10mg Take 1 Univers n (LIPITOR) 1-02 tablet by ity of 10 mg 00:00: mouth at [place] tablet 00 bedtime. [facility]05 Yes [id number] 10mg Take 1 Univers n (LIPITOR) 1-02 tablet by ity of 10 mg 00:00: mouth at [place] tablet 00 bedtime. [facility]05 Yes [id number] 10mg Take 1 Univers n (LIPITOR) 1-02 tablet by ity of 10 mg 00:00: mouth at [place] tablet 00 bedtime. [facility] Branch atorvasta 2015-05 Yes [id number] 10mg Take 1 Univers n (LIPITOR) 1-02 tablet by ity of 10 mg 00:00: mouth at [place] tablet 00 bedtime. [facility]05 Yes [id number] 10mg Take 1 Univers n (LIPITOR) 1-02 tablet by ity of 10 mg 00:00: mouth at [place] tablet 00 bedtime. Medical Branch Immunizations Ordered Immunization Filled Immunization Date Status Commen ts Source [facility] COVID-19 MRNA 2021-06-10 Completed [facility] VACCINATION 00:00:00 [facility] COVID-19 MRNA 2021-06-10 Completed [facility]ACC[facility] 00:00:00 [facility] COVID-19 MRNA 2021-06-10 Completed [facility] VACCINATION 00:00:00 [facility] COVID-19 MRNA 2020-07-09 Completed [facility] VACCINATION 00:00:00 Hospital PFIZER COVID-19 MRNA 2020-07-09 Completed [facility] VACCINATION 00:00:00 Hospital PFIZER COVID-19 MRNA 2020-07-09 Completed Meth odist VACCINATION 00:00:00 [facility] PFIZER COVID-19 MRNA 2020-06-18 Completed Meth odist VACCINATION 00:00:00 [facility] PFIZER COVID-19 MRNA 2020-06-18 Completed Meth odist VACCINATION 00:00:00 [facility] PFIZER COVID-19 MRNA 2020-06-18 Completed Meth odist VACCINATION 00:00:00 [facility] Pneumococcal 2020-04-29 Completed [facility] Polysaccharide 00:00:00 [facility] Zoster 2020-04-29 Completed [facility] 00:[facility]:00 [facility] Pneumococcal 2020-04-29 Completed [facility] Polysaccharide 00:00:00 [facility] Zoster 2020-04-29 Completed [facility] 00:00:00 [facility] Zoster 2020-04-29 Completed [facility] 00:00:00 Hospital Pneumococcal 2020-04-29 Completed [facility] Polysaccharide 00:00:00 Hospital Pneumococcal 2019-05-13 Completed [facility] Conjugate 13-Valent 00:00:00 Hospi true Pneumococcal 2019-05-13 Completed [facility] Conjugate 13-Valent 00:00:00 Hospi true Pneumococcal 2019-05-13 Completed [facility] Conjugate 13-[facility]ent 00:00:00 Hospi true FLUCELVAX QUAD PF 2019-03-[address] 00:00:00 [facility] FLUCELVAX QUAD PF 2019-03-[address] 00:00:00 Hospital FLUCELVAX QUAD PF 2019-03-[address] 00:00:00 Hospital FLUZONE HIGH-DOSE PF 2017-03-09 Completed Meth odist 00:00:00 Hospital FLUZONE HIGH-DOSE PF 2017-03-09 Completed Meth odist 00:00:00 Hospital FLUZONE HIGH-DOSE PF 2017-03-09 Completed Meth odist 00:00:00 [facility] Influenza Trivalent 2016-05-21 Completed [facility] 00:00:00 Hospital Influenza Trivalent 2016-05-21 Completed [facility] 00:00:00 Hospital Influenza Trivalent 2016-05-21 Completed [facility] 00:00:00 Hospital Influenza, 2016-02-03 Completed [facility] Unspecified 00:00:00 Hospital Pneumococcal 2016-02-03 Completed [facility] Conjugate 13-Valent 00:00:00 Hospi true Tdap 2016-02-03 Completed [facility] 00:00:00 Hospital Influenza, 2016-02-03 Completed [facility] Unspecified 00:00:00 Hospital Pneumococcal 2016-02-03 Completed [facility] Conjugate 13-Valent 00:00:00 Hospi true Tdap 2016-02-03 Completed [facility] 00:00:00 Hospital Tdap 2016-02-03 Completed [facility] 00:00:00 Hospital Influenza, 2016-02-03 Completed [facility] Unspecified 00:00:00 Hospital Pneumococcal 2016-02-03 Completed [facility] Conjugate 13-Valent 00:00:00 [facility] Influenza Virus 2016-02-03 Completed Universit y of Vaccine 00:00:00 [facility] Pneumococcal 13 2016-02-03 Completed Universit y of Conjugate, PCV13 00:00:00 [facility] dical (Prevnar 13) Branch [facility] 2016-02-03 Completed University of 00:00:00 [facility] Influenza Virus 2016-02-03 Completed Universit y of Vaccine 00:00:00 [facility] Pneumococcal 13 2016-02-03 Completed Universit y of Conjugate, PCV13 00:00:00 [facility] dical (Prevnar 13) Branch AP 2016-02-03 Completed University of 00:00:00 [facility] Influenza Virus 2016-02-03 Completed Universit y of Vaccine 00:00:00 [facility] Pneumococcal 13 2016-02-03 Completed Universit y of Conjugate, PCV13 00:00:00 [facility] dical (Prevnar 13) Branch TDAP 2016-02-03 Completed University of 00:00:00 [facility] Influenza Virus 2016-02-03 Completed Universit y of Vaccine 00:00:00 [facility] Pneumococcal 13 2016-02-03 Completed Universit y of Conjugate, PCV13 00:00:00 [facility] dical (Prevnar 13) Branch [facility] 2016-02-03 Completed University of 00:00:00 [facility] Influenza Virus 2016-02-03 Completed Universit y of Vaccine 00:00:00 [facility] Pneumococcal 13 2016-02-03 Completed Universit y of Conjugate, PCV13 00:00:00 [facility] dical (Prevnar 13) Branch [facility] 2016-02-03 Completed University of 00:00:00 [facility] Influenza Virus 2016-02-03 Completed Universit y of Vaccine 00:00:00 [facility] Pneumococcal 13 2016-02-03 Completed Universit y of Conjugate, PCV13 00:00:00 [facility] dical (Prevnar 13) Branch [facility] 2016-02-03 Completed University of 00:00:00 [facility] Influenza Virus 2016-02-03 Completed Universit y of Vaccine 00:00:00 [facility] Pneumococcal 13 2016-02-03 Completed Universit y of Conjugate, PCV13 00:00:00 [facility] dical (Prevnar 13) Branch [facility] 2016-02-03 Completed University of 00:00:00 [facility] Influenza Virus 2016-02-03 Completed Universit y of Vaccine 00:00:00 [facility] Pneumococcal 13 2016-02-03 Completed Universit y of Conjugate, PCV13 00:00:00 [facility] dical (Prevnar 13) Branch [facility] 2016-02-03 Completed University of 00:00:00 [facility] Influenza Virus 2016-02-03 Completed Universit y of Vaccine 00:00:00 [facility] Pneumococcal 13 2016-02-03 Completed Universit y of Conjugate, PCV13 00:00:00 [facility] dical (Prevnar 13) Branch [facility] 2016-02-03 Completed University of 00:00:00 [facility] Influenza Virus 2016-02-03 Completed Universit y of Vaccine 00:00:00 [facility] Pneumococcal 13 2016-02-03 Completed Universit y of Conjugate, PCV13 00:00:00 [facility] dical (Prevnar 13) Branch [facility] 2016-02-03 Completed University of 00:00:00 [facility] Influenza Virus 2016-02-03 Completed Universit y of Vaccine 00:00:00 [facility] Pneumococcal 13 2016-02-03 Completed Universit y of Conjugate, PCV13 00:00:00 [facility] dical (Prevnar 13) [facility] 2016-02-03 Completed University of 00:00:00 [facility] Influenza, 2015-01-05 Completed [facility] Unspecified 00:00:00 [facility] Pneumococcal 2015-01-05 Completed [facility] Conjugate 13-Valent 00:00:00 Hospi true Td 2015-01-05 Completed [facility] 00:00:00 Hospital Influenza, 2015-01-05 Completed [facility] Unspecified 00:00:00 Hospital Pneumococcal 2015-01-05 Completed [facility] Conjugate 13-Valent 00:00:00 Hospi true Td 2015-01-05 Completed [facility] 00:00:00 Hospital Td 2015-01-05 Completed [facility] 00:00:00 Hospital Influenza, 2015-01-05 Completed [facility] Unspecified 00:00:00 Hospital Pneumococcal 2015-01-05 Completed [facility] Conjugate 13-Valent 00:00:00 Hospi true Influenza Virus 2015-01-05 Completed Universit y of Vaccine 00:00:00 [facility] Pneumococcal 13 2015-01-05 Completed Universit y of Conjugate, PCV13 00:00:00 [facility] dical (Prevnar 13) Branch Tetanus/Diptheria 2015-01-05 Completed Univers ity of 00:00:00 [facility] Influenza Virus 2015-01-05 Completed Universit y of Vaccine 00:00:00 [facility] Pneumococcal 13 2015-01-05 Completed Universit y of Conjugate, PCV13 00:00:00 [facility] dical (Prevnar 13) Branch Tetanus/Diptheria 2015-01-05 Completed Univers ity of 00:00:00 [facility] Influenza Virus 2015-01-05 Completed Universit y of Vaccine 00:00:00 [facility] Pneumococcal 13 2015-01-05 Completed Universit y of Conjugate, PCV13 00:00:00 [facility] dical (Prevnar 13) Branch Tetanus/Diptheria 2015-01-05 Completed Univers ity of 00:00:00 [facility] Influenza Virus 2015-01-05 Completed Universit y of Vaccine 00:00:00 [facility] Pneumococcal 13 2015-01-05 Completed Universit y of Conjugate, PCV13 00:00:00 [place] [facility] (Prevnar 13) Branch Tetanus/Diptheria 2015-01-05 Completed Univers ity of 00:00:00 [facility] Influenza Virus 2015-01-05 Completed Universit y of Vaccine 00:00:00 [facility] Pneumococcal 13 2015-01-05 Completed Universit y of Conjugate, PCV13 00:00:00 [facility] dical (Prevnar 13) Branch Tetanus/Diptheria 2015-01-05 Completed Univers ity of 00:00:00 [facility] Influenza Virus 2015-01-05 Completed Universit y of Vaccine 00:00:00 [facility] Pneumococcal 13 2015-01-05 Completed Universit y of Conjugate, PCV13 00:00:00 [facility] dical (Prevnar 13) Branch Tetanus/Diptheria 2015-01-05 Completed Univers ity of 00:00:00 [facility] Influenza Virus 2015-01-05 Completed Universit y of Vaccine 00:00:00 [facility] Pneumococcal 13 2015-01-05 Completed Universit y of Conjugate, PCV13 00:00:00 [facility] dical (Prevnar 13) Branch Tetanus/Diptheria 2015-01-05 Completed Univers ity of 00:00:00 [facility] Influenza Virus 2015-01-05 Completed Universit y of Vaccine 00:00:00 [facility] Pneumococcal 13 2015-01-05 Completed Universit y of Conjugate, PCV13 00:00:00 [facility] dical (Prevnar 13) Branch Tetanus/Diptheria 2015-01-05 Completed Univers ity of 00:00:00 [facility] Influenza Virus 2015-01-05 Completed Universit y of Vaccine 00:00:00 [facility] Pneumococcal 13 2015-01-05 Completed Universit y of Conjugate, PCV13 00:00:00 [facility] dical (Prevnar 13) Branch Tetanus/Diptheria 2015-01-05 Completed Univers ity of 00:00:00 [facility] Influenza Virus 2015-01-05 Completed Universit y of Vaccine 00:00:00 [facility] Pneumococcal 13 2015-01-05 Completed Universit y of Conjugate, PC[facility] Branch Tetanus/Diptheria 2015-01-05 Completed Univers ity of 00:00:00 [facility] Influenza Virus 2015-01-05 Completed Universit y of Vaccine 00:00:00 [facility] Pneumococcal 13 2015-01-05 Completed Universit y of Conjugate, PCV13 00:00:00 [facility] dical (Prevnar 13) Branch Tetanus/Diptheria 2015-01-05 Completed Univers ity of 00:00:00 [facility] Pneumococcal 2013-05-21 Completed [facility] Conjugate 00:00:00 [facility] Tdap 2013-05-21 Completed [facility] 00:00:00 [facility] Pneumococcal 2013-05-21 Completed [facility] Conjugate 00:00:00 Hospital Tdap 2013-05-21 Completed [facility] 00:00:00 [facility] Pneumococcal 2013-05-21 Completed [facility] Conjugate 00:00:00 Hospital Tdap 2013-05-21 Completed [facility] 00:00:00 Hospital H1N1 All Forms 2009-04-20 Completed [facility] 00:00:00 Hospital H1N1 All Forms 2009-04-20 Completed [facility] 00:00:00 Hospital H1N1 All Forms 2009-04-20 Completed [facility] 00:00:00 Hospital Vital Signs Vital Name Observation Time Observation Value Comments Source HEIGHT 2022-01-14 10:00:00 162.6 cm WEIGHT 2022-01-14 10:00:00 68.04 kg HEIGHT 2022-01-14 10:00:00 162.6 cm WEIGHT 2022-01-14 10:00:00 68.04 kg HEIGHT 2022-01-14 10:00:00 162.6 cm WEIGHT 2022-01-14 10:00:00 68.04 kg Systolic blood 2022-01-18 12:00:00 117 mm[Hg] [facility] Diastolic blood 2022-01-18 12:00:00 51 mm[Hg] [facility] Heart rate 2022-01-18 12:00:00 80 /min [facility] Body temperature 2022-01-18 12:00:00 36.78 Mena [facility] Respiratory rate 2022-01-18 12:00:00 18 /min [facility] Oxygen saturation in 2022-01-18 12:00:00 100 /min [facility] Arterial blood by Medical Ce nter Pulse oximetry Body height 2022-01-14 10:00:00 162.6 cm [facility] Body weight 2022-01-14 10:00:00 68.04 kg [facility] BMI 2022-01-14 10:00:00 25.75 kg/m2 [facility] Systolic blood 2021-09-16 23:24:00 145 mm[Hg] [facility] pressure Diastolic blood 2021-09-16 23:24:00 78 mm[Hg] [facility] pressure Heart rate 2021-09-16 23:00:00 80 /min [facility] Respiratory rate 2021-09-16 23:00:00 19 /min [facility] Body temperature 2021-09-16 19:25:00 36.28 Mena [facility] Oxygen saturation in 2021-09-16 15:57:32 98 /min [facility] Arterial blood by Pulse oximetry Body height 2021-09-07 12:58:00 162.6 cm [facility] Body weight 2021-09-07 12:58:00 67.3 kg [facility] BMI 2021-09-07 12:58:00 25.47 kg/m2 [facility] Procedures Procedure Date / Time Performing Source Performed Clinician EXTERNAL PROVIDER RECORDS 2022-07-05 [facility] 06:01:00 Unassigned, No [facility] Name Branch EXTERNAL PROVIDER RECORDS 2022-04-01 Doctor Univer sity of 06:01:00 Unassigned, No [facility] POCT-GLUCOSE METER 2022-01-[address] [facility] 12:10:00 [facility] HEMODIALYSIS INPATIENT 2022-01-[address] [facility] 07:52:23 [facility] BASIC METABOLIC PANEL 2022-01-18 Reji, [facility] 06:09:00 [facility] Center POCT-GLUCOSE METER 2022-01-17 Reji, [facility]uro [facility] 19:46:00 [facility] POCT-GLUCOSE METER 2022-01-17 Reji, Mauro [facility] 17:06:00 [facility] POCT-GLUCOSE METER 2022-01-17 Reji, Mauro [facility] 12:13:00 [facility] POCT-GLUCOSE METER 2022-01-17 Reji, Mauro [facility] 08:29:00 [facility] BASIC METABOLIC PANEL 2022-01-17 Reij, [facility]uro [facility] 03:23:00 [facility] POCT-GLUCOSE METER 2022-01-16 Reji, Mauro [facility] 20:16:00 [facility] POCT-GLUCOSE METER 2022-01-16 Reji, Mauro [facility] 15:46:00 [facility] POCT-GLUCOSE METER 2022-01-16 Reji, Mauro [facility] 11:46:00 [facility] POCT-GLUCOSE METER 2022-01-16 Reji, Mauro [facility] 07:47:00 [facility] POCT-GLUCOSE METER 2022-01-15 Reji, Mauro [facility] 20:13:00 [facility] POCT-GLUCOSE METER 2022-01-15 Reji, Mauro [facility] 17:54:00 [facility] POCT-GLUCOSE METER 2022-01-15 [facility], Mauro [facility] 12:31:00 [facility] HEMODIALYSIS INPATIENT 2022-01-15 Leixe, Rufina [facility] 10:06:42 [facility] POCT-GLUCOSE METER 2022-01-15 Reji, Mauro [facility] 07:32:00 [facility] BASIC METABOLIC PANEL 2022-01-15 [facility], [facility] 03:58:00 [facility] POCT-GLUCOSE METER 2022-01-14 [facility], Mauro [facility] 20:42:00 [facility] POCT-GLUCOSE METER 2022-01-14 [facility], Mauro [facility] 15:38:00 [facility] SARS-COV2/RT-PCR ([facility]) 2022-01-14 [facility], Surinde r [facility] 14:57:00 [facility] XR CHEST 1 VIEW PORTABLE / BEDSIDE 2022-01-14 Reji, Surinde r [facility] 14:38:00 [facility] POCT-GLUCOSE METER 2022-01-14 [facility], Mauro [facility] 12:02:00 [facility] IR CENTRAL VENOUS CATHETER 2022-01-14 [facility], [facility] PLACEMENT (JUGULAR OR FEMORAL) 11:14:00 [facility] POCT-GLUCOSE METER 2022-01-14 [facility], Mauro [facility] 08:24:00 [facility] CBC (HEMOGRAM ONLY) 2022-01-14 Reji, Mauro [facility] 04:11:00 [facility] BASIC METABOLIC PANEL 2022-01-14 Reji, [facility] 04:11:00 [facility] POCT-GLUCOSE METER 2022-01-13 [facility], Mauro [facility] 19:39:00 [facility] POCT-GLUCOSE METER 2022-01-13 [facility], Mauro [facility] 16:37:00 [facility] POCT-GLUCOSE METER 2022-01-13 Reji, Mauro [facility] 13:51:00 [facility] BLOOD GAS, ARTERIAL 2022-01-13 Reji, Mauro [facility] 08:41:00 [facility] POCT-GLUCOSE METER 2022-01-13 Reji, Mauro [facility] 08:25:00 [facility] CT BRAIN WITHOUT IV CONTRAST 2022-01-13Reji, Mauro [facility] 07:50:00 [facility] COMPREHENSIVE METABOLIC PANEL 2022-01-13Reji, [facility]uro [facility] 07:29:00 [facility] TROPONIN I 2022-01-13 [facility], Mauro [facility] 07:29:00 [facility] TSH/FREE T4 IF INDICATED 2022-01-13Reji, Mauro [facility] 07:29:00 [facility] CBC W/PLT COUNT & AUTO 2022-01-13 [facility] DIFFER[facility] 07:29:00 [facility] CBC W/PLT COUNT & AUTO 2022-01-13 [facility] DIFFERENTIAL 07:29:00 [facility] POCT-GLUCOSE METER 2022-01-13 Reji, Mauro [facility] 07:04:00 [facility] POCT-GLUCOSE METER 2022-01-13 Reji, Mauro [facility] 06:21:00 [facility] POCT-GLUCOSE METER 2022-01-12 Reji, Mauro [facility] 20:53:00 [facility] POCT-GLUCOSE METER 2022-01-12 Reji, Mauro [facility] 19:20:00 [facility] POCT-GLUCOSE METER 2022-01-12 Reji, Mauro [facility] 18:50:00 [facility] POCT-GLUCOSE METER 2022-01-12 Reji, Mauro [facility] 17:58:00 [facility] IR TUNNELED CATHETER INSERTION 2022-01-[address] [facility] 16:30:00 [facility] POCT-GLUCOSE METER 2022-01-12 Reji, Mauro [facility] 12:08:00 [facility] POCT-GLUCOSE METER 2022-01-[address] [facility] 08:49:00 [facility] CBC W/PLT COUNT & AUTO 2022-01-12 [facility], Annalee Montoya [facility] DIFFERENTIAL 05:39:00 [facility] BASIC METABOLIC PANEL 2022-01-12 Shieh, Annalee Montoya [facility] 05:39:00 [facility] MAGNESIUM 2022-01-12 Shieh, Annalee Montoya [facility] 05:39:00 [facility] PHOSPHORUS 2022-01-12 [facility] Mont[facility] 05:39:00 [facility] PROTHROMBIN TIME/INR 2022-01-12 [facility] 05:39:00 [facility] APTT 2022-01-12 [facility], Annalee Montoya [facility] 05:39:00 [facility] CBC W/PLT COUNT & AUTO 2022-01-12 [facility], Annalee Montoya [facility] DIFFERENTIAL 05:39:00 [facility] (MANUAL DIFFERENTIAL) 2022-01-12 [facility], Annale[facility] Montoya [facility] 05:39:00 [facility] POCT-GLUCOSE METER 2022-01-11 [facility] Montoya [facility] 19:49:00 [facility] POCT-GLUCOSE METER 2022-01-11 [facility], Annalee Montoya [facility] 17:57:00 [facility] POCT-GLUCOSE METER 2022-01-11 [facility], Annalee Montoya [facility] 12:37:00 [facility] HEMODIALYSIS INPATIENT 2022-01-[address] [facility] 12:29:37 [facility] POCT-GLUCOSE METER 2022-01-11 [facility] Annalee Montoya [facility] 07:49:00 [facility] POCT-GLUCOSE METER 2022-01-10 [facility], Annalee Montoya [facility] 21:16:00 [facility] POCT-GLUCOSE METER 2022-01-10 [facility], Annalee Montoya [facility] 15:24:00 [facility] IR TUNNEL CATHETER EXCHANGE 2022-01-[address] [facility] 11:23:00 [facility] POCT-GLUCOSE METER 2022-01-10 [facility], Annalee Montoya [facility] 11:21:00 [facility] CBC W/PLT COUNT & AUTO 2022-01-10 [facility] C [facility] DIFFERENTIAL 04:13:00 [facility] BASIC METABOLIC PANEL 2022-01-10 Shieh, Annalee Jan [facility] 04:13:00 [facility] MAGNESIUM 2022-01-10 Shieh, Annalee Montoya [facility] 04:13:00 [facility] Center PHOSPHORUS 2022-01-10 Shieh, Annalee Montoya [facility] 04:13:00 [facility] APTT 2022-01-[address] [facility] 04:13:00 Medical Center CBC W/PLT COUNT & AUTO 2022-01-10 Shieh, Annalee Jan [facility] DIFFERENTIAL 04:13:00 [facility] POCT-GLUCOSE METER 2022-01-09 Shieh, Annalee Montoya [facility] 21:15:00 Medical Center APTT 2022-01-09 Shieh, Annalee Montoya [facility] 19:08:00 [facility] POCT-GLUCOSE METER 2022-01-09 Shieh, Annalee Montoya [facility] 17:02:00 Medical Center POCT-GLUCOSE METER 2022-01-09 Shieh, Annalee Jan [facility] 11:22:00 Medical Center APTT 2022-01-09 Shieh, Annalee Jan [facility] 09:44:00 Medical Center POCT-GLUCOSE METER 2022-01-09 Shieh, Annalee Jan [facility] 07:19:00 Medical Center POCT-GLUCOSE METER 2022-01-09 Shieh, Annalee Montoya [facility] 05:05:00 [facility] CBC W/PLT COUNT & AUTO 2022-01-09 Shieh, Annalee Jan [facility] DIFFERENTIAL 04:57:00 [facility] BASIC METABOLIC PANEL 2022-01-09 Shieh, Annalee Jan [facility] 04:57:00 [facility] Center MAGNESIUM 2022-01-09 Shieh, Annalee Jan [facility] 04:57:00 [facility] Center PHOSPHORUS 2022-01-09 Shieh, Annalee Montoya [facility] 04:57:00 Medical Center CBC W/PLT COUNT & AUTO 2022-01-09 Shieh, Annalee Montoya [facility] DIFFERENTIAL 04:57:00 [facility] APTT 2022-01-09 Shieh, Annalee Montoya [facility] 00:34:00 Medical Center POCT-GLUCOSE METER 2022-01-[address] [facility] 16:49:00 [facility] APTT 2022-01-08 Maida, Annalee Montoya [facility] 16:13:00 [facility] HEMODIALYSIS INPATIENT 2022-01-08 Lexie, Rufina [facility] 15[facility]47:52 [facility] HEPATITIS B SURFACE ANTIGEN 2022-01-08 Lexie, Ahmed [facility] 15:40:00 [facility] HEPATITIS B SURFACE ANTIBODY 2022-01-08 Lexie, Ahmed [facility] 15:40:00 [facility] POCT-GLUCOSE METER 2022-01-08 Shieh, Annalee Montoya [facility] 12:18:00 [facility] POCT-GLUCOSE METER 2022-01-[address] [facility] 07:59:00 [facility] CBC W/PLT COUNT & AUTO 2022-01-[address] [facility] DIFFERENTIAL 05:27:00 [facility] BASIC METABOLIC PANEL 2022-01-08 Shiartur, Annalee Montoya [facility] 05:27:00 [facility] MAGNESIUM 2022-01-08 Shieh, Annalee Montoya [facility] 05:27:00 [facility] PHOSPHORUS 2022-01-[address] [facility] 05:27:00 [facility] HEMOGLOBIN A1C 2022-01-08 Maida, Annalee Montoya [facility] 05:27:00 [facility] CBC W/PLT COUNT & AUTO 2022-01-[address] [facility] DIFFERENTIAL 05:27:00 [facility] APTT 2022-01-[address] [facility] 05:26:00 [facility] POCT-GLUCOSE METER 2022-01-[address] [facility] 21:01:00 [facility] APTT 2022-01-[address] [facility] 21:00:00 [facility] CARDIAC CATH REPORT - SCAN 2022-01-07 Provider, Default [facility] 00:00:00 Scanning [facility] EKG-SCANNED 2022-01-07 Provider, Default [facility] 00:00:00 Scanning [facility] HEMODIALYSIS 2021-09-16 Marycarmen Matson 20:36:27 [facility] POC GLUCOSE 2021-09-16 Al-Lahiq, Corrine Amish 15:59:00 Hospital POC GLUCOSE 2021-09-16 Al-Lahiq, Corrine Amish 11:10:00 Hospital POC GLUCOSE 2021-09-16 Al-Lahiq, Corrine Amish 01:24:00 Hospital POC GLUCOSE 2021-09-15 Al-Lahiq, Corrine Amish 20:54:00 Hospital POC GLUCOSE 2021-09-15 Al-Lahiq, Corrine Amish 16:27:00 Hospital POC GLUCOSE 2021-09-15 Al-Lahiq, Corrine Amish 12:04:00 Hospital POC GLUCOSE 2021-09-15 Al-Lahiq, Corrine Amish 11:16:00 Hospital POC GLUCOSE 2021-09-15 Al-Lahiq, Corrine Amish 01:21:00 Hospital POC GLUCOSE 2021-09-14 Al-Lahiq, Corrine Amish 21:57:00 Hospital POC GLUCOSE 2021-09-14 Al-Lahiq, Corrine Amish 17:17:00 Hospital IR TUNNELED DIALYSIS CATHETER 2021-09-14 Michoacano Owens Wi thodist REPLACEMENT/EXCHANGE 13:59:03 [facility] HEMODIALYSIS 2021-09-14 Marycarmen Matson 12:42:40 [facility] POC GLUCOSE 2021-09-14 Al-Lahiq, Corrine Amish 11:19:00 Hospital BASIC METABOLIC PANEL 2021-09-14 Marycarmen Matson 09:34:00 [facility] ESTIMATED GFR 2021-09-14 Marycarmen Matson 09:34:00 [facility] ZZCOVID-19 ANTI-SPIKE IGG ANTIBODY 2021-09-14 Michoacano Owens TITER 03:25:00 [facility] TYPE AND SCREEN 2021-09-14 Michoacano Owens 03:25:00 [facility] ZZCOVID-19 SEROLOGY PATIENT 2021-09-14 Michoacano Owens Meth odist SURVEILLANCE 03:25:00 [facility] POC GLUCOSE 2021-09-14 Al-VelmahiCorrine mijares 01:33:00 Hospital POC GLUCOSE 2021-09-13 Avery-KaitlynqCorrineist 23:43:00 Hospital SURGICAL PATHOLOGY REQUEST 2021-09-13 Corrine Osuna Metho dist 20:11:00 Hospital ESOPHAGOGASTRODUODENOSCOPY (EGD) 2021-09-13 Marycarmen Lopez 19:58:00 [facility] POC GLUCOSE 2021-09-13 Corrine Osuna 17:23:00 Hospital POC GLUCOSE 2021-09-13 Avery-Corrine Dozier 11:26:00 Hospital BASIC METABOLIC PANEL 2021-09-13 Marycarmen Matson 10:25:00 [facility] CBC WITH PLATELET AND DIFFERENTIAL 2021-09-13 Whit Osuna 10:25:00 Hospital PARTIAL THROMBOPLASTIN TIME (PTT) 2021-09-13 Corrine Osuna 10:25:00 Hospital ESTIMATED GFR 2021-09-13 Marycarmen Matson 10:25:00 [facility] PROTHROMBIN TIME WITH INR 2021-09-13 Corrine Osuna ist 10:25:00 Hospital POC GLUCOSE 2021-09-13 Corrine Osuna 00:48:00 Hospital ECG 12-LEAD 2021-09-12 Marycarmen Lopez 23:22:14 [facility] POC GLUCOSE 2021-09-12 Corrine Osuna 22:53:00 Hospital POC GLUCOSE 2021-09-12 Al-LalarryqCorrine 21:49:00 Hospital POC GLUCOSE 2021-09-12 Al-KaitlynqCorrine 16:57:00 Hospital POC GLUCOSE 2021-09-12 Avery-KaitlynqCorrine 11:26:00 Hospital POC GLUCOSE 2021-09-12 Avery-Corrine Dozier 11:01:00 Hospital BASIC METABOLIC PANEL 2021-09-12 Marycarmen Matson 09:15:00 [facility] ESTIMATED GFR 2021-09-12 Marycarmen Matson 09:15:00 [facility] HEMODIALYSIS 2021-09-12 Marycarmen Matson 02:06:24 [facility] POC GLUCOSE 2021-09-12 Corrine Osuna 01:05:00 Hospital POC GLUCOSE 2021-09-11 Avery-Corrine Dozier 21:53:00 Hospital POC GLUCOSE 2021-09-11 Corrine Osuna 16:41:00 Hospital HEMODIALYSIS 2021-09-11 Marycarmen Matson 15:53:24 [facility] POC GLUCOSE 2021-09-11 Avery-Corrine Dozier 11:14:00 [place] [address] ANTI-SPIKE IGG ANTIBODY 2021-09-11 Whit Osuna TITER 09:40:00 [facility] BASIC METABOLIC PANEL 2021-09-11 Marycarmen Matson 09:40:00 [facility] HEMOGLOBIN A1C 2021-09-11 Corrine Osuna 09:40:00 [place] [address] SEROLOGY PATIENT 2021-09-11 Corrine Osuna Meth odist SURVEILLANCE 09:40:00 Hospital CBC WITH PLATELET AND DIFFERENTIAL 2021-09-11 Whit Osuna 09:40:00 Hospital ESTIMATED GFR 2021-09-11 Marycarmen Matson 09:40:00 [facility] POC GLUCOSE 2021-09-11 Corrine Osuna 00:39:00 Hospital POC GLUCOSE 2021-09-10 Avery-Corrine Dozier 21:14:00 Hospital CORTISOL LEVEL, AM 2021-09-10 Corrine Osuna 16:58:00 Hospital POC GLUCOSE 2021-09-10 Al-KaitlynqCorrine 15:59:00 Hospital POC GLUCOSE 2021-09-10 Al-Corrine Dozier 11:26:00 Hospital BASIC METABOLIC PANEL 2021-09-10 Marycarmen Matson 09:55:00 [facility] ESTIMATED GFR 2021-09-10 Mayrcarmen Matson 09:55:00 [facility] POC GLUCOSE 2021-09-10 Al-Lahiq, Whita Amish 00:18:00 Hospital POC GLUCOSE 2021-09-09 Al-Lahiq, Whita Amish 21:28:00 Hospital POC GLUCOSE 2021-09-09 Al-Lahiq, Corrine Amish 16:28:[address] HEAD WO CONTRAST 2021-09-09 Al-Lalarryq, Corrine Amish 14:48:37 Hospital HEMODIALYSIS 2021-09-09 Marycarmen Matson 14:08:47 [facility] POC GLUCOSE 2021-09-09 Al-Lahiq, Corrine Amish 11:30:00 Hospital BASIC METABOLIC PANEL 2021-09-09 FlorenceMarycarmen jauregui 10:45:00 [facility] ESTIMATED GFR 2021-09-09 Marycarmen Matson 10:45:00 [facility] POC GLUCOSE 2021-09-09 Al-Lahiq, Corrine Amish 01:10:00 Hospital POC GLUCOSE 2021-09-08 Al-Lahiq, Corrine Amish 21:16:00 Hospital POC GLUCOSE 2021-09-08 Al-Lahiq, Corrine Amish 16:10:00 Hospital BASIC METABOLIC PANEL 2021-09-08 Haja Fraser 09:27:00 Hospital MAGNESIUM LEVEL 2021-09-08 Haja Fraser 09:27:00 Hospital ESTIMATED GFR 2021-09-08 Haja Fraser 09:27:00 Hospital GASTROINTESTINAL PATHOGENS PANEL, 2021-09-08 Kimmy Cronin Amish PCR 02:15:00 Hospital POC GLUCOSE 2021-09-08 Al-Lahiq, Whita Amish 01:30:00 Hospital BASIC METABOLIC PANEL 2021-09-07 Al-Lahiq, Corrine Amish 18:00:00 Hospital ESTIMATED GFR 2021-09-07 Al-Lahiq, Whita Amish 18:00:00 Hospital HEPATITIS B SURFACE ANTIGEN 2021-09-07 Andrea Matson 18:00:00 [facility] HEPATITIS B SURFACE AB, 2021-09-07 Stephen Matson QUANTITATIVE 18:00:00 [facility] Sharleneo XR CHEST 1 VW PORTABLE 2021-09-07 Corrine Osuna 16:47:43 Hospital XR ABDOMEN 1 VW 2021-09-07 Corrine Osuna 16:47:22 Hospital HEMODIALYSIS 2021-09-07 Haja Fraser Amish 16:16:15 Hospital POC GLUCOSE 2021-09-07 Corrine Osuna 11:07:00 Hospital TROPONIN T 2021-09-07 Trinidad Menard Amish 03:35:00 [facility] TROPONIN T 2021-09-07 Marley Cronin 00:00:00 Hospital [...] Hospital POC GLUCOSE 2021-08-13 Marycarmen Nuñez 16:22:00 [facility] POC GLUCOSE 2021-08-13 Marycarmen Nuñez 11:17:00 [facility] XR CHEST 1 VW PORTABLE 2021-08-13 Josemanuel Vences 11:13:27 Hospital BASIC METABOLIC PANEL 2021-08-13 Josemanuel Vences 10:26:00 Hospital ESTIMATED GFR 2021-08-13 Josemanuel Vences 10:26:00 Hospital POC GLUCOSE 2021-08-13 Jasonhohafsa Amish 00:38:00 [facility] HEMODIALYSIS 2021-08-13 Josemanuel Vences 00:09:24 Hospital [place] AN ELECTIVE ENDOTRACHEAL AIRWAY 2021-08-12 Leodan Rebolledo 23:45:00 Hospital INSERTION, CATHETER, DIALYSIS, 2021-08-12 Josemanuel Vences ethodist PERITONEAL, LAPAROSCOPIC 23:10:00 Hospita l POC GLUCOSE 2021-08-12 Savannah Amish 20:36:00 [facility] COVID-19 QUALITATIVE RT-PCR 2021-08-12 [facility] hoddiya 17:35:00 [facility] POC GLUCOSE 2021-08-12 Rupalilnhofer Amish 15:58:00 [facility] POC GLUCOSE 2021-08-12 Jasnohofer Amish 11:07:00 [facility] ECG 12-LEAD 2021-08-12 Marycarmen Mcdonald 11:02:39 [facility] BASIC METABOLIC PANEL 2021-08-12 Marycarmen Matson 09:47:00 [facility] ESTIMATED GFR 2021-08-12 [facility] 09:47:00 [facility] POC GLUCOSE 2021-08-12 Jasonhohafsa Amish 00:51:00 [facility] POC GLUCOSE 2021-08-11 Kohlnhofer, Amish 20:44:00 [facility] POC GLUCOSE 2021-08-11 Kohlnhofer Amish 16:14:00 [facility] POC GLUCOSE 2021-08-11 Jasonhofer Amish 11:06:00 [facility] POC GLUCOSE 2021-08-11 Kohlnhofer, Amish 00:30:00 [facility] POC GLUCOSE 2021-08-10 Kohlnhofer, Amish 20:48:00 [facility] POC GLUCOSE 2021-08-10 Kohlnhofer, Amish 11:07:00 [facility] POC GLUCOSE 2021-08-10 Kohlnhofer, Amish 00:46:00 [facility] POC GLUCOSE 2021-08-09 Kohdenilsonhofer, Amish 21:37:00 [facility] HEMODIALYSIS 2021-08-09 Marycarmen Matson 17:13:01 [facility] POC GLUCOSE 2021-08-09 Marycarmen Nuñez 16:55:00 [facility] POC GLUCOSE 2021-08-09 Tammy Dumont 11:19:00 [facility] BASIC METABOLIC PANEL 2021-08-09 Marycarmen Matson 10:52:00 [facility] ESTIMATED GFR 2021-08-09 Marycarmen Matson 10:52:00 [facility] PROCALCITONIN 2021-08-09 [place] Hyacinthlyla Conroy 02:51:00 [facility] POC GLUCOSE 2021-08-09 Tammy Dumont 00:26:00 [facility] POC GLUCOSE 2021-08-08 Tammy Dumont 21:18:00 [facility] POC GLUCOSE 2021-08-08 Tammy Dumont 19:34:00 [facility] POC GLUCOSE 2021-08-08 Tammy Dumont 10:58:00 [facility] DIGOXIN LEVEL 2021-08-08 Ritu Graves 10:46:00 [facility] BASIC METABOLIC PANEL 2021-08-08 Marycarmen Matson 10:46:00 [facility] ESTIMATED GFR 2021-08-08 Marycarmen Matson 10:46:00 [facility] POC GLUCOSE 2021-08-08 Tammy Dumont 02:06:00 [facility] POC GLUCOSE 2021-08-07 Tammy Dumont 23:09:00 [facility] HEMODIALYSIS 2021-08-07 Marycarmen Matson 20:13:07 [facility] POC GLUCOSE 2021-08-07 Tammy Dumont 15:50:00 [facility] POC GLUCOSE 2021-08-07 Tammy Dumont 11:19:00 [facility] CBC WITH PLATELET AND DIFFERENTIAL 2021-08-07 Steven Lucero 11:15:00 [facility] COMPREHENSIVE METABOLIC PANEL 2021-08-07 Rupali Lucero 11:15:00 [facility] ESTIMATED GFR 2021-08-07 Rupali Lucero 11:15:00 [facility] POC GLUCOSE 2021-08-07 Tammy Dumont 00:58:00 [facility] HEMODIALYSIS 2021-08-06 Marycarmen Matson 21:36:17 [facility] POC GLUCOSE 2021-08-06 Mougouris, Tasneem Conroy 21:21:00 Hospital POC GLUCOSE 2021-08-06 Mougouris, Taso Amish 15:39:00 Hospital BASIC METABOLIC PANEL 2021-08-06 [facility] 11:19:00 [facility] ESTIMATED GFR 2021-08-06 FlorenceMarycarmen jauregui 11:19:00 [facility] POC GLUCOSE 2021-08-06 Mougouris, Tasneem Conroy 09:09:00 Hospital POC GLUCOSE 2021-08-06 Mougouris, Tasneem Conroy 04:44:00 Hospital HEMODIALYSIS 2021-08-06 [facility] 02:34:43 [facility] POC GLUCOSE 2021-08-06 Mougouris, Tasneem Conroy 01:09:00 [facility] XR CHEST 1 VW PORTABLE 2021-08-05 Joanna Leiva 23:40:00 Hospital POC GLUCOSE 2021-08-05 Mougouris, Tasneem Conroy 21:24:00 Hospital OR [place] < 1 HOUR 2021-08-05 Joanna Leiva 21:05:00 Hospital [place] AN ELECTIVE SUPRAGLOTTIC AIRWAY 2021-08-05 Grazyna Martinez 20:19:00 [facility] INSERTION, CATHETER, CENTRAL 2021-08-05 Joanna Leiva VENOUS, TUNNELED, FOR HEMODIALYSIS 20:13:00 Hospital TYPE AND SCREEN 2021-08-05 [facility] 20:09:00 Hospital POC GLUCOSE 2021-08-05 MougourisTasneem 15:43:00 Hospital ECG 12-LEAD 2021-08-05 Ti Post 14:07:10 Hospital POC GLUCOSE 2021-08-05 Marycarmen Ayers 11:25:00 [facility] XR CHEST 1 VW PORTABLE 2021-08-05 Ti Post t 11:17:10 Hospital CBC WITH PLATELET AND DIFFERENTIAL 2021-08-05 Steven Lucero 10:45:00 [facility] BASIC METABOLIC PANEL 2021-08-05 Rupali Lucero 10:45:00 [facility] ESTIMATED GFR 2021-08-05 Rupali Lucero 10:45:00 [facility] POC GLUCOSE 2021-08-05 Marycarmen Ayers 00:57:00 [facility] POC GLUCOSE 2021-08-04 Marycarmen Ayers 16:51:00 [facility] XR ABDOMEN 1 VW 2021-08-04 Rupali Lucero 16:40:00 [facility] POC GLUCOSE 2021-08-04 Tammy Dumont 11:24:00 [facility] HC COMPLETE BLD COUNT W/AUTO DIFF 2021-08-04 Tammy Dumont 11:06:00 [facility] BASIC METABOLIC PANEL 2021-08-04 Marycarmen Matson 11:06:00 [facility] MAGNESIUM LEVEL 2021-08-04 Rupali Lucero 11:06:00 [facility] PHOSPHORUS LEVEL 2021-08-04 Rupali Lucero 11:06:00 [facility] ESTIMATED GFR 2021-08-04 Marycarmen Matson 11:06:00 [facility] POC GLUCOSE 2021-08-04 Tammy Dumont 00:57:00 [facility] POC GLUCOSE 2021-08-03 Tammy Dumont 21:36:00 [facility] HEPATITIS B CORE ANTIBODY TOTAL 2021-08-03 Marycarmen Matson 17:42:00 [facility] HEPATITIS B SURFACE AB, 2021-08-03 Stephen Matson t QUANTITATIVE 17:42:00 [facility] HEPATITIS C ANTIBODY 2021-08-03 Marycarmen Matson 17:42:00 [facility] HEPATITIS B SURFACE ANTIGEN 2021-08-03 Andrea Matson 17:42:00 [facility] POC GLUCOSE 2021-08-03 Tammy Dumont 16:38:00 [facility] POC GLUCOSE 2021-08-03 Tammy Dumont 11:29:00 [facility] HC COMPLETE BLD COUNT W/AUTO DIFF 2021-08-03 Ender Lucero 11:03:00 [facility] BASIC METABOLIC PANEL 2021-08-03 Rupali Lucero 11:03:00 [facility] PHOSPHORUS LEVEL 2021-08-03 Marycarmen Matson 11:03:00 [facility] [facility] PARATHYROID HORMONE 2021-08-03 José Espino 11:03:00 [facility] ESTIMATED GFR 2021-08-03 Rupali Lucero 11:03:00 [facility] POC GLUCOSE 2021-08-03 Tammy Dumont 00:22:00 [facility] CV STRESS TEST NUCLEAR CARDIO 2021-08-02 Lady Wi thodist 21:45:00 [facility] NM MYOCARDIAL PERFUSION REST 2021-08-02 Met ada Mcdonald STRESS 1 DAY 21:45:00 [facility] POC GLUCOSE 2021-08-02 Tammy Dumont 21:08:00 [facility] POC GLUCOSE 2021-08-02 Tammy Dumont 16:34:00 [facility] POC GLUCOSE 2021-08-02 Tammy Dumont 11:19:00 [facility] HC COMPLETE BLD COUNT W/AUTO DIFF 2021-08-02 Ender Lucero 09:43:00 [facility] BASIC METABOLIC PANEL 2021-08-02 Rupali Lucero 09:43:00 [facility] MAGNESIUM LEVEL 2021-08-02 Rupali Lucero 09:43:00 [facility] ESTIMATED GFR 2021-08-02 Rupali Lucero 09:43:00 [facility] POC GLUCOSE 2021-08-02 Tammy Dumont 00:15:00 [facility] POC GLUCOSE 2021-08-01 Tammy Dumont 20:02:00 [facility] POC GLUCOSE 2021-08-01 Tammy Dumont 16:16:00 [facility] POC GLUCOSE 2021-08-01 Tammy Dumont 11:16:00 [facility] BASIC METABOLIC PANEL 2021-08-01 Theresa Ramos t 10:56:00 Hospital MAGNESIUM LEVEL 2021-08-01 Theresa Ramos 10:56:00 Hospital PHOSPHORUS LEVEL 2021-08-01 Theresa Ramos 10:56:00 Hospital HC COMPLETE BLD COUNT W/AUTO DIFF 2021-08-01 Ender Luceroist 10:56:00 [facility] ESTIMATED GFR 2021-08-01 Theresa Ramos 10:56:00 Hospital ECG 12-LEAD 2021-08-01 Marycarmen Mcdonald 08:03:48 [facility] POC GLUCOSE 2021-08-01 Tammy Dumont 01:35:00 [facility] TTE COMPLETE, WO CONTRAST, W 2021-07-31 [facility] hodist DOPPLER ([id number]) 23:38:00 [facility] POC GLUCOSE 2021-07-31 Tammy Dumont 22:40:00 [facility] COVID-19 QUALITATIVE RT-PCR 2021-07-31 Rupali Lucero hodist 17:14:00 [facility] POC GLUCOSE 2021-07-31 Tammy Dumont 17:07:00 [facility] POC GLUCOSE 2021-07-31 Tammy Dumont 12:13:00 [facility] B NATRIURETIC PEPTIDE 2021-07-31 José Espino 11:34:00 [facility] BASIC METABOLIC PANEL 2021-07-31 José Espino 11:34:00 [facility] HC COMPLETE BLD COUNT W/AUTO DIFF 2021-07-31 José Espino 11:34:00 [facility] TROPONIN T 2021-07-31 José Espino 11:34:00 [facility] ESTIMATED GFR 2021-07-31 José Espino 11:34:00 [facility] Plan of Care Planned Activity Planned Date [...] (2 - Td or Tdap)] Future Scheduled 2023-01-[address] [facility] Test 00:00:00 (Season Ended) [code = Medic al Center INFLUENZA VACCINE (Season Ended)] Future Scheduled 2023-01-[address] [...] Cessation Counseling and Screening (12+)] Future Scheduled 2022-08-20 DIABETIC FOOT EXAM [facility] Test 03:10:19 [code = DIABETIC FOOT EXAM] Future Scheduled 2022-08-20 COLONOSCOPY SCREENING [facility] Test 03:10:19 [code = COLONOSCOPY SCREENING] Future Scheduled 2022-08-20 DIABETES: RETINAL EYE [facility] Test 03:10:19 EXAM [code = DIABETES: RETINAL EYE EXAM] Future Scheduled 2022-08-20 SHINGLES VACCINES (1 Met [facility] Test 03:10:19 of 2) [code = SHINGLES VACCINES (1 of 2)] Future Scheduled 2022-08-20 BREAST CANCER [facility] Test 03:10:19 SCREENING [code = BREAST CANCER SCREENING] Future Scheduled 2022-08-20 COVID-19 VACCINE (4 - Me [facility] Test 03:10:19 Booster for Pfizer series) [code = COVID-19 VACCINE (4 - Booster for Pfizer series)] Future Scheduled 2022-08-20 [facility]ACCINE [facility] 03:10:19 [code = INFLUENZA VACCINE] Future Scheduled 2022-07-19 DIABETIC FOOT EXAM [facility] Test 07:26:52 [code = DIABETIC FOOT EXAM] Future Scheduled 2022-07-19 COLONOSCOPY SCREENING [facility] Test 07:26:52 [code = COLONOSCOPY SCREENING] Future Scheduled 2022-07-19 DIABETES: RETINAL EYE [facility] Test 07:26:52 EXAM [code = DIABETES: RETINAL EYE EXAM] Future Scheduled 2022-07-19 SHINGLES VACCINES (1 Met [facility] Test 07:26:52 of 2) [code = SHINGLES VACCINES (1 of 2)] Future Scheduled 2022-07-19 BREAST CANCER [facility] Test 07:26:52 SCREENING [code = BREAST CANCER SCREENING] Future Scheduled 2022-07-19 COVID-19 VACCINE (4 - Me [facility] Test 07:26:52 Booster for Pfizer series) [code [...] SCREENING] Future Scheduled 2022-05-17 DIABETIC FOOT EXAM [facility] Test 10:42:08 [code = DIABETIC FOOT EXAM] Future Scheduled 2022-05-17 COLONOSCOPY SCREENING [facility] Test 10:42:08 [code = COLONOSCOPY SCREENING] Future Scheduled 2022-05-17 DIABETES: RETINAL EYE [facility] Test 10:42:08 EXAM [code = DIABETES: RETINAL EYE EXAM] Future Scheduled 2022-05-17 SHINGLES VACCINES (1 Met [facility] Test 10:42:08 of 2) [code = SHINGLES VACCINES (1 of 2)] Future Scheduled 2022-05-17 BREAST CANCER [facility] Test 10:42:08 SCREENING [code = BREAST CANCER SCREENING] Future Scheduled 2022-05-17 COVID-19 VACCINE (4 - Me [facility] Test 10:42:08 Booster for Pfizer series) [code [...] (2 - PPSV23 or PCV20)] Future Scheduled 2017-02-02 PNEUMOCOCCAL 65+ YRS [facility] Test 00:00:00 (2 - PPSV23 if Medical Cente r available, else PCV20) [code = PNEUMOCOCCAL 65+ YRS (2 - PPSV23 if available, else PCV20)] Future Scheduled 1998 SHINGLES VACCINES (1 [...] Medica l Center breast (procedure) [code = 910940539] Future Scheduled [address] [facility] 00:00:00 (combo) [code = CT Medical C enter Colonography (combo)] Future Scheduled [address] [facility] 00:00:00 malignant neoplasm of Medica [facility] Center colon (procedure) [code = 476803131] Future Scheduled [address] [facility] Test 00:00:00 malignant neoplasm of [facility] Center colon (procedure) [code = 040211729] Future Scheduled 1948 DXA SCAN [code = DXA [facility] Test 00:00:00 SCAN] [facility] Future Scheduled [address] [facility] Test 00:00:00 malignant neoplasm of Medica [facility] Center colon (procedure) [code = 073701675] Future Scheduled [address] [facility] Test 00:00:00 malignant neoplasm of [facility] Center colon (procedure) [code = 389098953] Future Scheduled 1948 Sigmoidoscopy [facility] Future Scheduled [address] [facility] Test 00:00:00 malignant neoplasm of [facility] Center breast (procedure) [code = 772418180] Future Scheduled [address] [facility] 00:00:00 (combo) [code = CT Medical C enter Colonography (combo)] Future Scheduled [address] [facility] Test 00:00:00 malignant neoplasm of [facility] Center colon (procedure) [code = 431170054] Future Scheduled [address] [facility] Test 00:00:00 malignant neoplasm of [facility] Center colon (procedure) [code = 520078417] Future Scheduled 1948 DXA SCAN [code = DXA [facility] Test 00:00:00 SCAN] [facility] Future Scheduled [address] [facility] Test 00:00:00 malignant neoplasm of [facility] Center colon (procedure) [code = 334179003] Future Scheduled [address] [facility] 00:00:00 malignant neoplasm of [facility] Center colon (procedure) [code = 877110449] Future Scheduled 1948 [facility]oidoscopy [facility] Future Scheduled [address] [facility] 00:00:00 malignant neoplasm of [facility] Center breast (procedure) [code = 265499144] Future Scheduled [address] [facility] 00:00:00 (combo) [code = CT Medical C enter Colonography (combo)] Future Scheduled [address] [facility] 00:00:00 malignant neoplasm of [facility] Center colon (procedure) [code = 177876291] Future Scheduled [address] [facility] 00:00:00 malignant neoplasm of [facility] Center colon (procedure) [code = 336087306] Future Scheduled 1948 DXA SCAN [code = DXA [facility] Test 00:00:00 SCAN] [facility] Future Scheduled [address] [facility] 00:00:00 malignant neoplasm of [facility] Center colon (procedure) [code = 390154211] Future Scheduled [address] [facility] 00:00:00 malignant neoplasm of [facility] Center colon (procedure) [code = 388878941] Future Scheduled 1948 Sigmoidoscopy [facility]] [facility] Future Scheduled [address] [facility] Test 00:00:00 malignant neoplasm of [facility] Center breast (procedure) [code = 518694469] Future Scheduled [address] [facility] 00:00:00 (combo) [code = CT Medical C enter Colonography (combo)] Future Scheduled [address] [facility] 00:00:00 malignant neoplasm of Medica [facility] Center colon (procedure) [code = 129609870] Future Scheduled [address] [facility] Test 00:00:00 malignant neoplasm of [facility] Center colon (procedure) [code = 680611980] Future Scheduled 1948 DXA SCAN [code = DXA [facility] Test 00:00:00 SCAN] [facility] Future Scheduled [address] [facility] Test 00:00:00 malignant neoplasm of [facility] Center colon (procedure) [code = 692218890] Future Scheduled [address] [facility] Test 00:00:00 malignant neoplasm of [facility] Center colon (procedure) [code = 796860965] Future Scheduled 1948 Sigmoidoscopy [facility]code [facility] Future Scheduled [address] [facility] Test 00:00:00 malignant neoplasm of [facility] Center breast (procedure) [code = 885510016] Future Scheduled [address] [facility] 00:00:00 (combo) [code = CT Medical C enter Colonography (combo)] Future Scheduled [address] [facility] Test 00:00:00 malignant neoplasm of [facility] Center colon (procedure) [code = 885731176] Future Scheduled [address] [facility] Test 00:00:00 malignant neoplasm of [facility] Center colon (procedure) [code = 438984204] Future Scheduled 1948 DXA SCAN [code = DXA [facility] Test 00:00:00 SCAN] [facility] Future Scheduled [address] [facility] Test 00:00:00 malignant neoplasm of [facility] Center colon (procedure) [code = 690800341] Future Scheduled [address] [facility] Test 00:00:00 malignant neoplasm of [facility] Center colon (procedure) [code = 969256383] Future Scheduled 1948 Sigmoidoscopy [facility] Encounter Admission Attending Care Care Encounter Source Date/Time Date/Time Type Type Clinicians Facility Department ID 2022-06-08 Inpatient EL Alfredo, [facility] DAYS [id number] [facility] 09:00:00 Greg 07 [facility] 2022-01-05 Inpatient [facility] Vascular [id number] [facility] 13:58:43 [facility] 2021-11-04 Outpatient [facility] [id number] [place] 14:10:46 [id number] [facility] 2021-08-11 Outpatient [facility] [id number] [place] 09:26:19 [id number] [facility] 2022-07-05 2022-07-05 Orders Doctor MACKENZIE 1.2.840.114 [id number] [facility] 00:00:00 00:00:00 Only Unassigned, YARELI 350.1.13.10 ity of [place] [facility] 4.2.7.2.686 Kev as [phone] [address] 2022-04-01 2022-04-01 Orders Doctor MACKENZIE 1.2.840.114 [id number] [facility] 00:00:00 00:00:00 Only Unassigned, YARELI 350.1.13.10 ity of [place] [facility] 4.2.7.2.686 Kev as [phone] [address] 2022-03-24 2022-03-24 Telephone Eran [facility] 1.2.031.545 [id number] Univers 00:00:00 00:00:00 Luc S HEALTH 350.1.13.10 it y of [place] 4.2.7.2.686 Kev as MARISA?BLEA [phone] [address] OFFICE [facility] 2022-03-23 2022-03-23 Telephone Eran [facility] 1.2.304.115 [id number] Univers 00:00:00 00:00:00 Luc S HEALTH 350.1.13.10 it y of [place] 4.2.7.2.686 Kev as MARISA?BLEA [phone] [address] OFFICE [facility] 2022-03-18 2022-03-18 Telephone Jud [facility] 1.2.840.114 [id number] Univers 00:00:00 00:00:00 Alannah L HEALTH 350.1.13.10 it y of [place] 4.2.7.2.686 Kev as MARISA?BLEA [phone] Wi garcía LOVE [address] [place] [address] MEDICAL OFFICE BUILDING 2022-03-16 2022-03-16 Telephone Jud [facility] 1.2.840.114 [id number] Univers 00:00:00 00:00:00 Alannah MEDELLIN 350.1.13.10 ity [facility] 4.2.7.2.686 [facility] AT [phone] Wi garcía [place] [address] [place] [address] 2022-01-07 2022-01-18 [facility] [id number] 17:48:00 16:48:00 Encounter [facility] 2022-01-07 2022-01-18 [facility] MaidaAnnalee [facility] [id number] 17:48:00 16:48:00 Encounter [facility] 2022-01-07 2022-01-18 Inpatient [facility] Surgery [id number] [facility] 17:48:00 16:48:00 ANNALEE 2022-01-07 2022-01-[address] [facility] [id number] [facility] 00:00:00 [facility] 2022-01-07 2022-01-[address] [facility] [id number] [facility] 00:[facility] 00:00:00 [facility] 2022-01-02 2022-01-02 [facility] N[facility] [id number] [facility] 00:00:00 00:00:00 ALANNAH durand [facility] 2021-09-06 2021-09-16 [facility] Derian Trinidadsa Reza 1.2.840.1 10 [id number] Methodi 14:46:00 18:55:00 Encounter Corrine Osuna 35230.1.[address] 3.430.2.7 Hospit a .3.878647 l .8 2021-09-13 2021-09-13 Anesthesia Natasha 1.2.840.1 [id number] Methodi 14:58:00 15:19:00 Event Edwin 42032.1.[address] Alannah 3.430.2.7 Hospit a .3.511135 l .8 2021-09-13 2021-09-13 Surgery John, 1.2.840.1 [id number] Methodi 14:22:00 14:27:[address] Marthai 3.430.2.7 Hospit a .3.635085 l .8 2021-09-06 2021-09-06 Travel 1.2.840.1 1.2.853.253 [id number] Methodi 00:00:00 00:00:[address] 3.430.2.7 0.2.7.3.698 Ho spita .3.481051 084.8 l .8 2021-07-31 2021-08-13 Hospital Tammy Dumont 1.2.840.1 [id number] Methodi 04:12:00 19:46:00 Encounter Edwin Ayers 22391.1.[address] Tasneem Ellison 3.430.2.7 Hospita Annalee Nuñez .3.177924 l .8 2021-08-12 2021-08-12 Anesthesia Leodan Rebolledo 1.2.840.1 [id number] Methodi 18:09:00 19:38:[address] 3.430.2.7 Hospit a .3.345694 l .8 2021-08-12 2021-08-12 Surgery Ru, 1.2.840.1 [id number] Methodi 17:35:00 18:50:[address] 3.430.2.7 Hospit a .3.484961 l .8 2021-08-05 2021-08-05 Anesthesia Andre Navarro 1.2.840.1 [id number] Methodi 15:12:00 16:16:00 Event Grazyna Martinez 38320.1.[address] 3.430.2.7 Hospit a .3.698969 l .8 2021-08-05 2021-08-05 Surgery Leiva, 1.2.840.1 [id number] Methodi 15:20:00 16:05:[address] 3.430.2.7 Hospit a .3.065911 l .8 2021-08-02 2021-08-02 Documentat Provider, 1.2.840.1 [id number] Methodi 00:00:00 00:00:00 ion Unknown 04669.1.[address] 3.430.2.7 Hospit a .3.543074 l .8 2021-07-14 2021-07-14 Transcribe Shabana 1.2.840.1 [id number] Methodi 00:00:00 00:00:00 Orders , Zulema 43139.1.[address] 3.430.2.7 Hospit a .3.089696 l .8 2021-06-10 2021-06-10 Clinical 1.2.840.1 [id number] Methodi 15:45:00 15:58:[address] 3.430.2.7 Hospit a .3.262190 l .8 2021-06-10 2021-06-10 Travel 1.2.840.1 1.2.195.806 5877 [id number] Methodi 00:00:00 00:00:[address] 3.430.2.7 0.2.7.3.698 Ho spita .3.624870 084.8 l .8 2021-06-09 2021-06-09 Outpatient Sudheer_T VFP VFP [id number] 02-[address] [facility] 11:40:00 11:40:00 [id number] Family Practic e 2021-06-01 2021-06-04 [facility] [id number] [place] 00:00:00 00:00:00 CORRINE [address] 2020-08-05 2020-08-05 Outpatient FRIEND-ERINMAN [facility] [id number] [place] 00:00:00 00:00:00 , ZULEMA [address] 2020-07-09 2020-07-09 Outpatient [facility] [id number] [place] 00:00:00 00:00:[address] 2020-06-18 2020-06-18 Outpatient [facility] [id number] [place] 00:00:00 00:00:[address] 2020-04-05 2020-04-06 Outpatient AL-LAHIQ, [place] [id number] [place] 00:00:00 00:00:00 MAHA [address] 2020-03-22 2020-03-25 Inpatient AL-LAHIQ, [facility] [id number] [place] 00:00:00 00:00:00 MAHA [address] 2020-02-27 2020-02-27 Outpatient BHUMI, [facility] [id number] [place] 00:00:00 00:00:00 DAVID [address] 2020-02-17 2020-02-18 Outpatient AL-LAHIQ, [facility] [id number] [place] 00:00:00 00:00:00 MAHA [address] 2020-01-17 2020-01-18 Emergency JOSE A, [facility] [id number] [place] 00:00:00 00:00:00 SHAKEEL [address] 2019-10-23 2019-10-26 Inpatient AL[facility]LAHIQ, [facility] [id number] [place] 00:00:00 00:00:00 MAHA [address] 2019-08-05 2019-08-05 Outpatient FRIEND-MICHAEL [facility] [id number] [place] 00:00:00 00:00:00 , ZULEMA [address] 2019-07-10 2019-07-12 Inpatient AL-LAHIQ, [facility] [id number] [place] 00:00:00 00:00:00 MAHA [address] 2019-03-27 2019-03-30 Outpatient TEQWIMUAH, [facility] [id number] [place] 00:00:00 00:00:00 SARAI [address] Results Test Description Test Time Test Comments Results Result Comments Source POC-Glucose meter 2022-01-18 12:22:13 Test Item Value Reference Range Interpretation Comme nts POC-Glucose Meter (test code = 102 mg/dL 70-110 : TESTED AT [facility] [address] [place] [address] 1538) [place] [address]: Professor Of Pathology/Techni faviola ID = [id number] for Yelling, Yoland a Lab Interpretation (test code = Normal 32668-2) [facility]-Glucose [id number] 12:22:13 Test Item Value Reference Range Interpretation Comments POC-Glucose Meter (test 102 mg/dL 70-110 : [facility] code = 1538) [address] [place] [address]: Professor Of Pathology/Techni faviola ID = [id number] for Yelling, Yoland a Lab Interpretation (test Normal code = 08442-0) [facility]-Glucose [id number] 12:22:13 Test Item Value Reference Range Interpretation Comments POC-Glucose Meter (test 102 mg/dL 70-110 : [facility] code = 1538) [address] [place] [address]: Professor Of Pathology/Techni faviola ID = [id number] for Yelling, Yoland a Lab Interpretation (test Normal code = 53362-0) [facility]-Glucose [id number] 12:22:13 Test Item Value Reference Range Interpretation Comments POC-Glucose Meter (test 102 mg/dL 70-110 : [facility] code = 1538) [address] [place] [address]: Professor Of Pathology/Techni faviola ID = [id number] for Yelling, Yoland a Lab Interpretation (test Normal code = 48918-2) [facility]-Glucose [id number] 12:22:13 Test Item Value Reference Range Interpretation Comments POC-Glucose Meter (test 102 mg/dL 70-110 : [facility] code = 1538) [address] [place] [address]: Professor Of Pathology/Techni faviola ID = [id number] for Yelling, Yoland a Lab Interpretation (test Normal code = 77999-6) [facility]-GLUCOSE [id number] 12:22:13 Test Item Value Reference Range Interpretation Comments POC-GLUCOSE METER 102 mg/dL 70-110 : TESTED A T [facility] [address] (BEAKER) (test code [address], = 1538) [facility] [place] [address]: Professor Of Pathology/Techni faviola ID = [id number] for Zuri Maharaj BASIC METABOLIC [id number] 06:40:34 Test Item Value Reference Range Interpretation [...] (test code = 697) EGFR (BEAKER) 10 Interpretati on of eGFR (test code = [...] not appl icable for dialysis patien ts Professor Of Pathology ID - [id number] ID - [id number] ID - [id number] ID - RRAQBUHHD393Gqpdgyot ID - JSTSFCHUM457Zdpivner ID - XKBFPKYMD179Eemqlpox ID - OWMUETKWB335Yvzpglib ID - NDBDQJOEN980Ovsbhvud ID - QEFERXOBN667Qjykdqdt ID - HIXFMNMAW882Aqemayce ID - HAKCNJQQI906Fyhopddz ID - CYILAZRBL601Pkvijuzb ID - KEMZLKKTK644LPSZ-TNNAQBN [id number] 19:58:07 Test Item Value Reference Range Interpretation Comments POC-GLUCOSE METER 126 mg/dL 70-110 H : [facility]) (test code [facility], = 1538) [place] [address]2928: Professor Of Pathology/Techni faviola ID = [id number] for Ina Agrawal POCT-GLUCOSE [id number] 17:18:36 Test Item Value Reference Range Interpretation Comments POC-GLUCOSE METER 128 mg/dL 70-110 H : Notified RN/MD: [facility] (test code AT [facility] [address] = 1538) [place] [address]: Professor Of Pathology/Techni faviola ID = [id number] for Thak er, Nikitaben POCT-GLUCOSE [id number] 12:27:16 Test Item Value Reference Range Interpretation Comments POC-GLUCOSE METER 141 mg/dL 70-110 H : TESTED A T [facility] 1317 (BEAKER) (test code [facility], = 1538) [place] [address]: Professor Of Pathology/Techni faviola ID = [id number] for Thak er, Nikitaben POCT-GLUCOSE [id number] 08:42:44 Test Item Value Reference Range Interpretation Comments POC-GLUCOSE METER 152 mg/dL 70-110 H : Notified RN/MD: TESTED (BEAKER) (test code AT [facility] [address] = 1538) [place] [address]: Professor Of Pathology/Techni faviola ID = [id number] for Thak er, Nikitaben BASIC METABOLIC [id number] 05:53:56 Test Item Value Reference Range Interpretation [...] not appl icable for dialysis patien ts Professor Of Pathology ID - [id number] ID - ETNAKQEZR876Ildmofai ID - SNENIUMYI656Nqyzmkqo ID - UFERDCBKS586Bntilyli ID - NOEJUDNJT999Iwowwcxz ID - NKFQQNWJQ916Cwufyiyy ID - DGPOGRRAF579Jvjgnkeo ID - VGNOKBIVB236Tnpcefle ID - LIOVNQJKJ729Jeqxaijx ID - GBWTRPBEH351Yvbkdodv ID - HNZNVXBKC538Cioxqmqw ID - SGUAKGBLZ946Rgszuzha ID - PGHBAGGCR364YJCZ-DHVLXNL [id number] 20:28:58 Test Item Value Reference Range Interpretation Comments POC-GLUCOSE METER 184 mg/dL 70-110 H : TESTED A T [facility] [address] (BEAKER) (test code [address], = 1538) [place] [address]28: Professor Of Pathology/Techni faviola ID = [id number] for Ina Agrawal POCT-GLUCOSE [id number] 15:57:54 Test Item Value Reference Range Interpretation Comments POC-GLUCOSE METER 187 mg/dL 70-110 H : TESTED A T [facility] [address] (BEAKER) (test code [address], = 1538) [place] [id number]: Professor Of Pathology/Techni faviola ID = [id number] for Aileen Loja POCT-GLUCOSE [id number] 11:57:54 Test Item Value Reference Range Interpretation Comments POC-GLUCOSE METER 163 mg/dL 70-110 H : TESTED A T [facility] (BEAKER) (test code AN [address], = 1538) [place] [id number]: Professor Of Pathology/Techni faviola ID = [id number] for Ej vergara Aileen POCT-GLUCOSE [id number] 07:59:00 Test Item Value Reference Range Interpretation Comments POC-GLUCOSE METER 129 mg/dL 70-110 H : TESTED A T [facility] (BEAKER) (test code [address], = 1538) [place] [address]: Professor Of Pathology/Techni faviola ID = [id number] for Ej vergara, Aileen POCT-GLUCOSE [id number] 20:24:24 Test Item Value Reference Range Interpretation Comments POC-GLUCOSE METER 185 mg/dL 70-110 H : TESTED A T [facility] [address] (BEAKER) (test code [address], = 1538) [place] [id number]: Professor Of Pathology/Techni faviola ID = [id number] for Renny perea Agustin POCT-GLUCOSE [id number] 18:05:34 Test Item Value Reference Range Interpretation Comments POC-GLUCOSE METER 126 mg/dL 70-110 H : TESTED A T [facility] [address] (BEAKER) (test code [address], = 1538) [place] [address]: Professor Of Pathology/Techni faviola ID = [id number] for Consuelo Leija POCT-GLUCOSE [id number] 12:43:19 Test Item Value Reference Range Interpretation Comments POC-GLUCOSE METER 154 mg/dL 70-110 H : TESTED A T [address] [address] (BEAKER) (test code [address], = 1538) [place] [id number]: Professor Of Pathology/Techni faviola ID = [id number] for Consuelo Leija POCT-GLUCOSE [id number] 07:44:17 Test Item Value Reference Range Interpretation Comments POC-GLUCOSE METER 142 mg/dL 70-110 H : TESTED A T [facility] [address] (BEAKER) (test code [address], = 1538) [facility] [address]: Professor Of Pathology/Techni faviola ID = [id number] for Consuelo Leija BASIC METABOLIC [id number] 05:55:22 Test Item Value Reference Range Interpretation [...] (test code = 697) EGFR (BEAKER) 11 Interpretati on of eGFR (test code = [...] not appl icable for dialysis patien ts Professor Of Pathology ID - LITOOperator ID - LITOOperator ID - LITOOperator ID - LITOOperator ID - LITOOperator ID - LITOOperator ID - LITOOperator ID - LITOOperator ID - LITOOperator ID - LITOOperator ID - LITOOperator ID - LITOOperator ID - MARTÍN POCT-GLUCOSE [id number] 20:53:58 Test Item Value Reference Range Interpretation Comments POC-GLUCOSE METER 194 mg/dL 70-110 H : TESTED A T [address] [address] (BEAKER) (test code [address], = 1538) [facility] [address]: Professor Of Pathology/Techni faviola ID = [id number] for Aileen Loja POCT-GLUCOSE [id number] 15:49:19 Test Item Value Reference Range Interpretation Comments POC-GLUCOSE METER 171 mg/dL 70-110 H : TESTED A T [address] [address] (TONEY) (test code [address], = 1538) [facility] [address]: Professor Of Pathology/Techni faviola ID = [id number] for Aileen Loja SARS-CoV2/RT-PCR (Asymptomatic ONLY)2022-01-14 15:42:35 Test Item Value Reference Interpretation Comments Range SARS-COV2/RT-PCR Negative Negative The SARS-Co V-2 (test code = target nucleic 78815-1) acids are not detected in thi s [...] revoked sooner. Fact Sheet for Healthcare Providers: https://www.[employer].Unidym/Documents/Xp ert%20Xpress%20SAR S%20CoV-2/Fact%20S heets/3023802%20S ARS-COV-2%20HEALTH CARE%20PROVIDERS%2 0FACT%20SHEET.pdf Fact Sheet for Healthcare Patients: https://www.[employer]/Documents/Xp ert%20Xpress%20SAR S%20CoV-2/Fact%20S heets/302-3801%20S ARS-COV-2%20PATIEN T%20FACT%20SHEET.p df Lab Interpretation Normal (test code = 24572-6) [facility]2022-01-14 15:42:35 Test Item Value Reference Interpretation Comments Range SARS-COV2/RT-PCR Negative Negative The SARS-Co V-2 (test code = target nucleic 30631-2) acids are not detected in thi s [...] revoked sooner. Fact Sheet for Healthcare Providers: https://www.[employer]/Documents/Xp ert%20Xpress%20SAR S%20CoV-2/Fact%20S heets/3023802%20S ARS-COV-2%20HEALTH CARE%20PROVIDERS%2 0FACT%20SHEET.pdf Fact Sheet for Healthcare Patients: https://www.[employer]/Documents/Xp ert%20Xpress%20SAR S%20CoV-2/Fact%20S heets/302-3801%20S ARS-COV-2%20PATIEN T%20FACT%20SHEET.p df Lab Interpretation Normal (test code = 32369-9) [facility] (Asymptomatic ONLY)2022-01-14 15:42:35 Test Item Value Reference Interpretation Comments Range SARS-COV2/RT-PCR Negative Negative The SARS-Co V-2 (test code = target nucleic 32227-5) acids are not detected in thi s [...] om SARS-CoV-2 in a nasopharyngeal swab specimen colle kenneth from individual s suspected of COVID-19 [...] revoked sooner. Fact Sheet for Healthcare Providers: https://www.[employer]/Documents/Xp ert%20Xpress%20SAR S%20CoV-2/Fact%20S heets/302-3802%20S ARS-COV-2%20HEALTH CARE%20PROVIDERS%2 0FACT%20SHEET.pdf Fact Sheet for Healthcare Patients: https://www.[employer]/Documents/Xp ert%20Xpress%20SAR S%20CoV-2/Fact%20S heets/302-3801%20S ARS-COV-2%20PATIEN T%20FACT%20SHEET.p df Lab Interpretation Normal (test code = 13864-7) [facility]Asymptomatic ONLY)2022-01-14 15:42:35 Test Item Value Reference Interpretation Comments Range SARS-COV2/RT-PCR Negative Negative The SARS-Co V-2 (test code = target nucleic 30979-8) acids are not detected in thi s [...] revoked sooner. Fact Sheet for Healthcare Providers: https://www.[employer]/Documents/Xp ert%20Xpress%20SAR S%20CoV-2/Fact%20S heets/302-3802%20S ARS-COV-2%20HEALTH CARE%20PROVIDERS%2 0FACT%20SHEET.pdf Fact Sheet for Healthcare Patients: https://www.[employer]/Documents/Xp ert%20Xpress%20SAR S%20CoV-2/Fact%20S heets/302-3801%20S ARS-COV-2%20PATIEN T%20FACT%20SHEET.p df Lab Interpretation Normal (test code = 52917-5) [facility] (Asymptomatic ONLY)2022-01-14 15:42:35 Test Item Value Reference Interpretation Comments Range SARS-COV2/RT-PCR Negative Negative The SARS-Co V-2 (test code = target nucleic 54638-8) acids are not detected in thi s [...] revoked sooner. Fact Sheet for Healthcare Providers: https://www.[employer]/Documents/Xp ert%20Xpress%20SAR S%20CoV-2/Fact%20S heets/3023802%20S ARS-COV-2%20HEALTH CARE%20PROVIDERS%2 0FACT%20SHEET.pdf Fact Sheet for Healthcare Patients: https://www.[employer]/Documents/Xp ert%20Xpress%20SAR S%20CoV-2/Fact%20S heets/3023801%20S ARS-COV-2%20PATIEN T%20FACT%20SHEET.p df Lab Interpretation Normal (test code = 43652-8) [facility])2022-01-14 15:42:35 Test Item Value Reference Range Interpretation Comments SARS-COV2/RT-PCR Negative Negative The SARS-Co V-2 target (test code = nucleic acids a re not 7111847) detected in thi s specimen. Negative result [...] revoked sooner. Fact Sheet for Healthcare Providers: https://www.[employer].co m/Documents/Xpert%20Xpress%20SARS%20CoV-2/Fact%20Sheets/3023802%30NUPR-ZRN-2%20 HEALTHCARE%20PROVIDERS%20FACT%20SHEET.pdf Fact Sheet for Healthcare Patients: https://www.[employer]/Documents/Xpert%20Xp ress%20SARS%20CoV-2/Fact%20Sheets/3023801%28QDKL-TIH-5%20PATIENT%20FACT%20SHEET .pdfRAD, CHEST, 1 VIEW, NON [id number] 15:02:00Reason for exam:- >SOBShould this be performed at the bedside?->Yes [facility] 1950 Sex: FFINAL [...] MDReport Verified Date/Time: 01/14/2022 15:02:16 Reading Location: [facility] Radiology Reading Room POCT-GLUCOSE [id number] 12:14:41 Test Item Value Reference Range Interpretation Comments POC-GLUCOSE METER 134 mg/dL 70-110 H : TESTED A T [facility] 1317 (BEAKER) (test code [address], = 1538) [facility] [address]: Professor Of Pathology/Techni faviola ID = [id number] for Aileen Loja, CENTRAL VENOUS CATH PLCMT (JUG/FEM) > 3 Y.O. WITH [id number] 11:25:00Reason for exam:->Non tunneled central line placement [facility] 1950 Sex: FFINAL [...] MDReport Verified Date/Time: 01/14/2022 11:25:42 Reading Location: [facility] Radiology Reading Room POCT-GLUCOSE [id number] 08:34:59 Test Item Value Reference Range Interpretation Comments POC-GLUCOSE METER 147 mg/dL 70-110 H : TESTED A T [facility] 1317 (BEAKER) (test code [address], = 1538) [facility] [address]: Professor Of Pathology/Techni faviola ID = [id number] for Aileen Loja BASIC METABOLIC [id number] 06:37:03 Test Item Value Reference Range Interpretation [...] not appl icable for dialysis patien ts Professor Of Pathology ID - LITOOperator ID - LITOOperator ID [...] 0-0 (BEAKER) (test code = 413) POCT-GLUCOSE [id number] 19:50:36 Test Item Value Reference Range Interpretation Comments POC-GLUCOSE METER 199 mg/dL 70-110 H : TESTED A T [facility] [address] (BEAKER) (test code [address], = 1538) [place] [address]: Professor Of Pathology/Techni faviola ID = [id number] for Ina Agrawal POCT-GLUCOSE [id number] 16:52:12 Test Item Value Reference Range Interpretation Comments POC-GLUCOSE METER 150 mg/dL 70-110 H : TESTED A T [facility] [address] (BEAKER) (test code [address], = 1538) [place] [address]: Professor Of Pathology/Techni faviola ID = [id number] for Aileen Loja POCT-GLUCOSE [id number] 14:05:10 Test Item Value Reference Range Interpretation Comments POC-GLUCOSE METER 122 mg/dL 70-110 H : TESTED A T [facility] [address] (BEAKER) (test code [address], = 1538) [place] [address]: Professor Of Pathology/Techni faviola ID = [id number] for Nancy Douglass Blood gas, [id number] 09:06:33 Test Item Value Reference Range Interpretation Comments pH, Arterial (test code 7.45 7.35-7.45 = 2744-1) pCO2, Arterial (test 40 See_Comment [Autom ated message] code = 2019-8) The system [facility] generated this result transmit kenneth reference range : 35 - 45 mm Hg. The reference range was not used to interpret this result as normal/abnormal . pO2, Arterial (test 79 See_Comment L [Automa kenneth message] code = 2703-7) The system [employer] generated this result transmit kenneth reference range [...] 21 Lab Interpretation Abnormal (test code = 55168-2) [facility] [id number] 09:06:33 Test Item Value Reference Range Interpretation Comments pH, Arterial (test code 7.45 7.35-7.45 = 2744-1) pCO2, Arterial (test 40 See_Comment [Autom ated message] code = 2018-12) The system [employer] generated this result transmit kenneth reference range : 35 - 45 mm Hg. The reference range was not used to interpret this result as normal/abnormal . pO2, Arterial (test 79 See_Comment L [Automa kenneth message] code = 2703-7) The system [employer] generated this result transmit kenneth reference range [...] 21 Lab Interpretation Abnormal (test code = 70351-3) [facility] [id number] 09:06:33 Test Item Value Reference Range Interpretation Comments pH, Arterial (test code 7.45 7.35-7.45 = 2744-1) pCO2, Arterial (test 40 See_Comment [Autom ated message] code = 2018-12) The system [employer] generated this result transmit kenneth reference range : 35 - 45 mm Hg. The reference range was not used to interpret this result as normal/abnormal . pO2, Arterial (test 79 See_Comment L [Automa kenneth message] code = 2703-7) The system [employer] generated this result transmit kneneth reference range : 80 - 90 mm [...] 21 Lab Interpretation Abnormal (test code = 68224-8) [facility] [id number] 09:06:33 Test Item Value Reference Range Interpretation Comments pH, Arterial (test code 7.45 7.35-7.45 = 2744-1) pCO2, Arterial (test 40 See_Comment [Autom ated message] code = 2019-8) The system [employer] generated this result transmit kenneth reference range : 35 - 45 mm Hg. The reference range was not used to interpret this result as normal/abnormal . pO2, Arterial (test 79 See_Comment L [Automa kenneth message] code = 2703-7) The system [employer] generated this result transmit kenneth reference range [...] 21 Lab Interpretation Abnormal (test code = 92416-7) [facility] [id number] 09:06:33 Test Item Value Reference Range Interpretation Comments pH, Arterial (test code 7.45 7.35-7.45 = 2744-1) pCO2, Arterial (test 40 See_Comment [Autom ated message] code = 2019-8) The system [facility] generated this result transmit kenneth reference range : 35 - 45 mm Hg. The reference range was not used to interpret this result as normal/abnormal . pO2, Arterial (test 79 See_Comment L [Automa kenneth message] code = 2703-7) The system [facility] generated this result transmit kenneth reference range [...] 21 Lab Interpretation Abnormal (test code = 97850-2) [facility], [id number] 09:06:33 Test Item Value Reference Range Interpretation [...] (BEAKER) (test code = 1819) 21.0 POCT-GLUCOSE [id number] 08:36:44 Test Item Value Reference Range Interpretation Comments POC-GLUCOSE METER 132 mg/dL 70-110 H : TESTED A T [facility] [address] (BEAKER) (test code [address], = 1538) [facility] [address]: Professor Of Pathology/Techni faviola ID = [id number] for Mond ragon, Aileen TSH/FREE T4 IF [id number] 08:14:31 Test Item Value Reference Range Interpretation Comments THYROID STIMULATING HORMONE 1.790 uIU/mL 0.350-5.500 (BEAKER) (test code = 772) Professor Of Pathology ID - DSENSONCOMPREHENSIVE METABOLIC [id number] 08:04:08 Test Item Value Reference Range Interpretation [...] not appl icable for dialysis patien ts Professor Of Pathology ID - DSENSONOperator ID - DSENSONOperator ID - DSENSONOperator ID - DSENSONOperator ID - DSENSONOperator ID - DSENSONOperator ID - DSENSONOperator ID - DSENSONOperator ID - DSENSONOperator ID - DSENSONOperator ID - DSENSONOperator ID - DSENSONOperator ID - DSENSONOperator ID - DSENSONOperatorID - DSENSONOperator ID - DSENSONOperator ID - DSENSONOperator ID - DSENSONOperator ID - DSENSONTROPONIN [id number] 08:03:10 Test Item Value Reference Range Interpretation [...] failure, acidosis, acute neurological disease, and persistent tachyarrhythmia.Professor Of Pathology ID - DSENSONCT, BRAIN, WITHOUT [id number] 07:49:00 [facility] 1950 Sex: FFINAL [...] 01/13/2022 07:49:20 CBC W/PLT COUNT & AUTO [id number] 07:39:37 Test Item Value Reference Range Interpretation [...] PERCENT (BEAKER) (test code = 2801) POCT-GLUCOSE [id number] 07:15:45 Test Item Value Reference Range Interpretation Comments POC-GLUCOSE METER 127 mg/dL 70-110 H : TESTED A T [facility] [address] (BEAKER) (test code [facility], = 1538) [place] [id number]: Professor Of Pathology/Techni faviola ID = [id number] for Aileen Loja POCT-GLUCOSE [id number] 06:32:48 Test Item Value Reference Range Interpretation Comments POC-GLUCOSE METER 133 mg/dL 70-110 H : TESTED A T [facility] [address] (BEAKER) (test code [facility], = 1538) [place] [id number]: Professor Of Pathology/Techni faviola ID = [id number] for Mekhi bi, Libia POCT-GLUCOSE [id number] 21:05:05 Test Item Value Reference Range Interpretation Comments POC-GLUCOSE METER 195 mg/dL 70-110 H : TESTED A T [address] (BEAKER) (test code [facility], = 1538) [place] [id number]: Professor Of Pathology/Techni faviola ID = [id number] for Mekhi bi, [place] POCT-GLUCOSE [id number] 19:32:35 Test Item Value Reference Range Interpretation Comments POC-GLUCOSE METER 180 mg/dL 70-110 H : TESTED A T [address] [address] (BEAKER) (test code [address], = 1538) [place] [address]: Professor Of Pathology/Techni faviola ID = [id number] for [place] ins, Odalys POCT-GLUCOSE [id number] 19:30:16 Test Item Value Reference Range Interpretation Comments POC-GLUCOSE METER 50 mg/dL 70-110 L : TESTED A T [facility] [address] (BEAKER) (test code = [address], 1538) [place] [address]: Professor Of Pathology/Techni faviola ID = [id number] for [place] ins, Odalys POCT-GLUCOSE [id number] 18:09:32 Test Item Value Reference Range Interpretation Comments POC-GLUCOSE METER 63 mg/dL 70-110 L : TESTED A T [address] [address] (BEAKER) (test code = [address], 1538) [place] [address]: Professor Of Pathology/Techni faviola ID = [id number] for Will iaRobe alvarenga ANG, TUNNELED CATHETER [id number] 17:04:00Reason for exam:->dialysis catheter with poor flows on dialysis, very positional - please place tunneled dialysis catheter in a new position. [facility] 1950 Sex: FFINAL REPORT Tunneled dialysis catheter exchange, 01/12/2022. History: Renal failure, poor flow through the existing catheter. Modality: Sonography and fluoroscopy. Sedation: None. Publication Director: Mitzy. Real Estate Transaction Coordinator: None. Approach: Internal jugular vein - right. [...] removed and a new 23 cm 15.5 Ecuadorean Duraflow 2 catheter was advanced through the [...] right atrium. Impression: Successful, uncomplicated exchange of [facility] internal jugular tunneled dialysis catheter using fluoroscopic guidance. Signed: Nick Dockery MDReport Verified Date/Time: 01/12/2022 17:04:33 [facility] POCT-GLUCOSE [id number] 12:20:13 Test Item Value Reference Range Interpretation Comments POC-GLUCOSE METER 107 mg/dL 70-110 : TESTED A T [facility] 1317 (BEAKER) (test code [address], = 1538) [facility] 77 [address]: Professor Of Pathology/Techni faviola ID = [id number] for Will Robe lewis POCT-GLUCOSE [id number] 09:01:23 Test Item Value Reference Range Interpretation Comments POC-GLUCOSE METER 118 mg/dL 70-110 H : TESTED A T [facility] [address] (BEAKER) (test code [address], = 1538) [facility] [place] [address]: Professor Of Pathology/Techni faviola ID = [id number] for Robe Agrawal CBC W/PLT COUNT & AUTO [id number] 06:58:41 Test Item Value Reference Range Interpretation [...] code = 1+ few 961) BASIC METABOLIC [id number] 06:30:57 Test Item Value Reference Range Interpretation [...] not appl icable for dialysis patien ts Professor Of Pathology ID - LITOOperator ID - LITOOperator ID - LITOOperator ID - LITOOperator ID - LITOOperator ID - LITOOperator ID - LITOOperator ID - LITOOperator ID - LITOOperator ID - [id number] 06:19:11 Test Item Value Reference Range Interpretation Comments MAGNESIUM (BEAKER) (test code = 1.9 mg/dL 1.5-3.0 627) Professor Of Pathology ID - LITOOperator ID - LITOOperator ID - LITOOperator ID - MARTÍN [id number] 06:16:11 Test Item Value Reference Range Interpretation Comments PHOSPHORUS (BEAKER) (test code = 3.4 mg/dL 2.5-4.5 604) Professor Of Pathology ID - LITOPROTHROMBIN TIME/[id number] 06:03:04 Test Item Value Reference Range Interpretation Comments PROTIME (BEAKER) 12.4 seconds 9.3-12.0 H Final Infor mation (test code = 759) (Auto Outp ut) INR (BEAKER) (test 1.14 See_Comment Final Inf ormation code = 370) (Auto Output) [Automated mess age] The system [employer] generated this result transmitted ref erence range: <=5.90. The reference range was not used to int erpret this result as normal/abnormal . RECOMMENDED COUMADIN/WARFARIN INR THERAPY RANGESSTANDARD DOSE: 2.0 - 3.0 Includes: PROPHYLAXIS for venous thrombosis, systemic embolization; TREATMENT for venous thrombosis and/or pulmonary embolus.HIGH RISK: Target INR is 2.5-3.5 for patients with mechanical heart valves.[id number] 06:03:04 Test Item Value Reference Range Interpretation Comments PARTIAL THROMBOPLASTIN 29.5 seconds 23.0-35.0 Final Information TIME (BEAKER) (test (Auto Ou tput) code = 760) POCT-GLUCOSE [id number] 20:00:47 Test Item Value Reference Range Interpretation Comments POC-GLUCOSE METER 172 mg/dL 70-110 H : TESTED A T [facility] [address] (BEAKER) (test code [address], = 1538) [place] [id number]: Professor Of Pathology/Techni faviola ID = [id number] for Will iaZen alvarengacas POCT-GLUCOSE [id number] 18:09:30 Test Item Value Reference Range Interpretation Comments POC-GLUCOSE METER 121 mg/dL 70-110 H : TESTED A T [facility] [address] (BEAKER) (test code [facility], = 1538) [place] [id number]: Professor Of Pathology/Techni faviola ID = [id number] for Will iams, Robe POCT-GLUCOSE [id number] 12:48:21 Test Item Value Reference Range Interpretation Comments POC-GLUCOSE METER 102 mg/dL 70-110 : TESTED A T [facility] [address] (BEAKER) (test code [facility] NT [facility], = 1538) [place] [id number]: Professor Of Pathology/Techni faviola ID = [id number] for Avelino Connie bucknernna POCT-GLUCOSE [id number] 08:00:17 Test Item Value Reference Range Interpretation Comments POC-GLUCOSE METER 119 mg/dL 70-110 H : TESTED A T [facility] [address] (BEAKER) (test code [facility] NT [facility], = 1538) [place] [id number]: Professor Of Pathology/Techni faviola ID = [id number] for Will iams, Robe POCT-GLUCOSE [id number] 21:28:11 Test Item Value Reference Range Interpretation Comments POC-GLUCOSE METER 227 mg/dL 70-110 H : TESTED A T [facility] [address] (BEAKER) (test code [facility] = 1538) [place] [id number]: Professor Of Pathology/Techni faviola ID = [id number] for Libia Pop POCT-GLUCOSE [id number] 15:35:44 Test Item Value Reference Range Interpretation Comments POC-GLUCOSE METER 168 mg/dL 70-110 H : TESTED A T [facility] [address] (BEAKER) ([facility], = 1538) [place] [id number]: Professor Of Pathology/Techni faviola ID = [id number] for Buff ord, Maribel ANG, REPL CVC/TUNNELED W/O [id number] 11:59:00 [facility] 1950 Sex: FFINAL [...] a permanent image was stored. Catheter size (Ecuadorean): 15.5Catheter flush: Heparin (100 units/mL) Abbie sureThe [...] the report as written. Signed: Vicki Ramirez MDRep[facility] Verified Date/Time: 01/10/2022 11:59:48 Reading Location: [facility] Radiology Reading Room POCT-GLUCOSE [id number] 11:32:33 Test Item Value Reference Range Interpretation Comments POC-GLUCOSE METER 105 mg/dL 70-110 : TESTED A T [facility] 1317 (BEAKER) ([facility] = 15[address] [address]: Professor Of Pathology/Techni faviola ID = [id number] for Anne breen Maribel BASIC METABOLIC [id number] 04:51:32 Test Item Value Reference Range Interpretation [...] not appl icable for dialysis patien ts Professor Of Pathology ID - LITOOperator ID - LITOOperator ID - LITOOperator ID - LITOOperator ID - LITOOperator ID - LITOOperator ID - LITOOperator ID - LITOOperator ID - LITOOperator ID - [id number] 04:50:58 Test Item Value Reference Range Interpretation Comments MAGNESIUM (BEAKER) (test code = 2.0 mg/dL 1.5-3.0 627) Professor Of Pathology ID - LITOOperator ID - LITOOperator ID - LITOOperator ID - MARTÍN [id number] 04:48:19 Test Item Value Reference Range Interpretation Comments PHOSPHORUS (BEAKER) (test code = 3.9 mg/dL 2.5-4.5 604) Professor Of Pathology ID - [id number] 04:44:00 Test Item Value Reference Range Interpretation Comments PARTIAL THROMBOPLASTIN 51.7 seconds 23.0-35.0 H Final Information TIME (BEAKER) (test (Auto Ou tput) code = 760) CBC W/PLT COUNT & AUTO [id number] 04:24:30 Test Item Value Reference Range Interpretation [...] PERCENT (BEAKER) (test code = 2801) POCT-GLUCOSE [id number] 21:26:47 Test Item Value Reference Range Interpretation Comments POC-GLUCOSE METER 127 mg/dL 70-110 H : TESTED A T [facility] [address] (BEAKER) (test code [address], = 1538) [place] [address]: Professor Of Pathology/Techni faviola ID = [id number] for Libia Pop [id number] 20:08:11 Test Item Value Reference Range Interpretation Comments PARTIAL THROMBOPLASTIN 41.3 seconds 23.0-35.0 H Final Information TIME (BEAKER) (test (Auto Ou tput) code = 760) POCT-GLUCOSE [id number] 17:14:06 Test Item Value Reference Range Interpretation Comments POC-GLUCOSE METER 154 mg/dL 70-110 H : TESTED A T [facility] [address] (BEAKER) (test code [address], = 1538) [place] [id number]: Professor Of Pathology/Techni faviola ID = [id number] for Aileen Loja POCT-GLUCOSE [id number] 11:55:38 Test Item Value Reference Range Interpretation Comments POC-GLUCOSE METER 153 mg/dL 70-110 H : TESTED A T [facility] [address] (BEAKER) (test code [address], = 1538) [place] [id number]: Professor Of Pathology/Techni faviola ID = [id number] for Pankaj Jimeneze HEPATITIS B SURFACE [id number] 11:29:52 Test Item Value Reference Range Interpretation Comments HEPATITIS B SURFACE ANTIBODY 53.8 mIU/mL <8.0 H (BEAKER) (test code = 647) Professor Of Pathology ID - [id number] 10:04:36 Test Item Value Reference Range Interpretation Comments PARTIAL THROMBOPLASTIN 36.3 seconds 23.0-35.0 H Final Information TIME (BEAKER) (test (Auto Ou tput) code = 760) POCT-GLUCOSE [id number] 07:31:03 Test Item Value Reference Range Interpretation Comments POC-GLUCOSE METER 111 mg/dL 70-110 H : TESTED A T [address] (BEAKER) (test code [address], = 1538) [place] [id number]: Professor Of Pathology/Techni faviola ID = [id number] for Buff jamshid, Maribel [id number] 06:13:46 Test Item Value Reference Range Interpretation Comments MAGNESIUM (BEAKER) (test code = 1.8 mg/dL 1.5-3.0 627) Professor Of Pathology ID - [id number] ID - [id number] ID - [id number] ID - [id number] METABOLIC [id number] 06:12:49 Test Item Value Reference Range Interpretation [...] not appl icable for dialysis patien ts Professor Of Pathology ID - [id number] ID - [id number] ID - [id number] ID - [id number] ID - [id number] ID - [id number] ID - [id number] ID - [id number] ID - [id number] ID - [id number] 06:10:51 Test Item Value Reference Range Interpretation Comments PHOSPHORUS (BEAKER) (test code = 3.0 mg/dL 2.5-4.5 604) Professor Of Pathology ID - [id number] W/PLT COUNT & AUTO [id number] 05:49:35 Test Item Value Reference Range Interpretation [...] PERCENT (BEAKER) (test code = 2801) POCT-GLUCOSE [id number] 05:17:03 Test Item Value Reference Range Interpretation Comments POC-GLUCOSE METER 108 mg/dL 70-110 : TESTED A T [address] (BEAKER) (test code [facility], = 1538) [place] [id number]: Professor Of Pathology/Techni faviola ID = [id number] for esperanza Abraham [id number] 01:14:37 Test Item Value Reference Range Interpretation Comments PARTIAL THROMBOPLASTIN 37.5 seconds 23.0-35.0 H Final Information TIME (BEAKER) (test (Auto Ou tput) code = 760) HEPATITIS B SURFACE [id number] 18:36:43 Test Item Value Reference Range Interpretation Comments HEPATITIS B SURFACE ANTIGEN (2) Nonreactive Nonreactive (BEAKER) (test code = 2585) Professor Of Pathology ID - [id number] [id number] 17:00:29 Test Item Value Reference Range Interpretation Comments POC-GLUCOSE METER 131 mg/dL 70-110 H : TESTED A T [address] (BEAKER) (test code [facility], = 1538) [place] [id number]: Professor Of Pathology/Techni faviola ID = [id number] for Migel Holt [id number] 16:38:44 Test Item Value Reference Range Interpretation Comments PARTIAL THROMBOPLASTIN 42.5 seconds 23.0-35.0 H Final Information TIME (BEAKER) (test (Auto Ou tput) code = 760) POCT-GLUCOSE [id number] 12:29:39 Test Item Value Reference Range Interpretation Comments POC-GLUCOSE METER 168 mg/dL 70-110 H : TESTED A T [address] (BEAKER) (test code [facility], = 1538) [place] [id number]: Professor Of Pathology/Techni faviola ID = [id number] for Migel Holt POCT-GLUCOSE [id number] 08:10:36 Test Item Value Reference Range Interpretation Comments POC-GLUCOSE METER 136 mg/dL 70-110 H : TESTED A T [address] (BEAKER) (test code [address], = 1538) [facility] [place] [address]: Professor Of Pathology/Techni faviola ID = [id number] for Migel Holt BASIC METABOLIC [id number] 06:18:43 Test Item Value Reference Range Interpretation [...] not appl icable for dialysis patien ts Professor Of Pathology ID - LITOOperator ID - LITOOperator ID - LITOOperator ID - LITOOperator ID - LITOOperator ID - LITOOperator ID - LITOOperator ID - LITOOperator ID - LITOOperator ID - [id number] 06:17:29 Test Item Value Reference Range Interpretation Comments MAGNESIUM (BEAKER) (test code = 1.6 mg/dL 1.5-3.0 627) Professor Of Pathology ID - LITOOperator ID - LITOOperator ID - LITOOperator ID - MARTÍN HEMOGLOBIN [id number] 06:16:10 Test Item Value Reference Range Interpretation Comments HEMOGLOBIN A1C (BEAKER) (test code = 8.5 % 4.3-6.1 H 368) Professor Of Pathology ID - [id number] 06:14:08 Test Item Value Reference Range Interpretation Comments PHOSPHORUS (BEAKER) (test code = 5.0 mg/dL 2.5-4.5 H 604) Professor Of Pathology ID - [id number] 05:59:43 Test Item Value Reference Range Interpretation Comments PARTIAL THROMBOPLASTIN 45.4 seconds 23.0-35.0 H Final Information TIME (BEAKER) (test (Auto Ou tput) code = 760) CBC W/PLT COUNT & AUTO [id number] 05:48:29 Test Item Value Reference Range Interpretation [...] H PERCENT (BEAKER) (test code = 2801) [id number] 21:22:07 Test Item Value Reference Range Interpretation Comments PARTIAL THROMBOPLASTIN 26.5 seconds 23.0-35.0 Final Information TIME (BEAKER) (test (Auto Ou tput) code = 760) POCT-GLUCOSE [id number] 21:12:37 Test Item Value Reference Range Interpretation Comments POC-GLUCOSE METER 136 mg/dL 70-110 H : TESTED A T [address] (BEAKER) (test code [facility] [address], = 1538) [facility] [address]: Professor Of Pathology/Techni faviola ID = [id number] for Amritanu esperanza lyles POC [id number] 16:00:00 Test Item Value Reference Range Interpretation Comments POC glucose (test code = 158 mg/dL 65-99 H Ope rator Name: [id number]) Bob AnaWalter tilley ID: [id number] Lab Interpretation (test Abnormal code = 00052-5) [facility] [id number] 16:00:00 Test Item Value Reference Range Interpretation Comments POC glucose (test code = 158 mg/dL 65-99 H Ope rator Name: [id number]) Bob Grijalva evice ID: [id number] Lab Interpretation (test Abnormal code = 27254-2) [facility] pathology [id number] 15:05:25 Test Item Value Reference Range Interpretation Comments Case number (test code = [id number]) Surgical pathology See link below for report (test code = PDF Lab Report 2255) Result status (test code This is Final Report = [id number]) for [id number] [facility] pathology [id number] 15:05:25 Test Item Value Reference Range Interpretation Comments Case number (test code = [id number]) Surgical pathology See link below for report (test code = PDF Lab Report 2255) Result status (test code This is Final Report = [id number]) for [id number] [place] [address] [id number] 12:23:18 Test Item Value Reference Range Interpretation [...] of 12-AUG-2021 06:02,-No significant change was found- [address]2022-04-20 12:23:18 Test Item Value Reference Range Interpretation [...] of 12-AUG-2021 06:02,-No significant change was found- [facility] ED Preliminary Interpretation - Not an [id number] 21:23:51 Test Item Value Reference Range Interpretation Comments VALERIANO (test code = VALERIANO) Marley Cronin NP-C 09/07/2021 9:29 [facility] ED Preliminary Interpretation - Not an OrderPerformed by: Marley Cronin NP-CAuthorized by: Trinidad Menard MD ECG reviewed by ED Physician in the absence of a video game technician: no Previous ECG: Previous ECG: UnavailableInterpretat ion: Interpretation: abnormal Rate: ECG rate: 80 ECG rate assessment: normal Rhythm: Rhythm: paced Pacing: Type of pacing: VentricularEctopy: Ectopy: none QRS: QRS axis: Normal QRS intervals: NormalConduction: Conduction: normal ST segments: ST segments: Normal Lab Interpretation Abnormal (test code = 63237-5) [facility] ED Preliminary Interpretation - Not an [id number] 21:23:51 Test Item Value Reference Range Interpretation Comments VALERIANO (test code = VALERIANO) Marley Cronin NP-C 09/07/2021 9:29 [facility] ED Preliminary Interpretation - Not an OrderPerformed by: Marley Cronin NP-CAuthorized by: Trinidad Menard MD ECG reviewed by ED Physician in the absence of a video game technician: no Previous ECG: Previous ECG: UnavailableInterpretat ion: Interpretation: abnormal Rate: ECG rate: 80 ECG rate assessment: normal Rhythm: Rhythm: paced Pacing: Type of pacing: VentricularEctopy: Ectopy: none QRS: QRS axis: Normal QRS intervals: NormalConduction: Conduction: normal ST segments: ST segments: Normal Lab Interpretation Abnormal (test code = 02860-1) [facility] [Presence] in Respiratory specimen by LANG with probe [id number] 13:39:12 Test Item Value Reference Range Interpretation Comments SARS-CoV-2 (COVID-19) RNA Not detected [Presence] in Respiratory specimen by LANG with probe detection (test code = 01234-8) Whether patient is employed in a Unknown healthcare setting (test code = 32270-2) Whether the patient has symptoms Unknown related to condition of interest (test code = 52045-4) Whether the patient was Unknown hospitalized for condition of interest (test code = 09349-1) Whether the patient was admitted Unknown to intensive care unit (ICU) for condition of interest (test code = 35344-6) Whether patient resides in a Unknown congregate care setting (test code = 74518-3) status (test code = Unknown 85866-8) Date and time of symptom onset Unknown (test code = 60635-2) [facility] myocardial [id number] 02:36:07 Test Item Value Reference Range Interpretation Comments Target HR (test code 148.00 bpm = 9878202360) Resting HR (test 83 BPM code = 7665052570) Resting BP (test 178/79 mmHg code = 7564753998) Percent HR (test 54.05 % code = 5638041792) Post Peak HR (test 80 bpm code = 3996184106) Post Peak BP (test 161/77 mmHg code = 2248481787) Radiology Study observation (narrative) (test code = 95109-1) VALERIANO (test code = Study Quality: good. [...] left ventricle ejection fraction is mildly reduced. [facility] stress [id number] 22:06:40 Test Item Value Reference Range Interpretation Comments Resting BP (test code = 8511786504) Protocol Name (test LEXISCAN code = 2100000886) Time in Exercise 00:01:00 Phase (test code = 4986306098) Max Systolic BP (test code = 3879199693) Max Diastolic BP (test code = 9427721385) Max Heart Rate (test code = 6784067426) Max Predicted Heart Rate (test code = 1267635034) Test Indication (test code = 5139636868) Arrhy During Ex (test code = 2194516964) ECG Interp Before EX (test code = 6844811487) ECG Interp During Ex (test code = 6502776138) Ex Summary Comment (test code = 4565639480) Overall HR Response to Exercise (test code = 3889836982) Overall BP Response To Exercise (test code = 0768414830) Reason for Termination (test code = 2167074203) Stress Test Waveform interpreted in Impression (test code report associated with = 0473680200) image study. No interpretation is provided as part of this Stress ECG report.-Electronically Signed By Adam HOLLIDAY, [facility] ([id number]), rewrite editor Daysi Chapman ([id number]) on 08/02/2021 5:06:37 PM [facility] stress [id number] 22:06:40 Test Item Value Reference Range Interpretation Comments Resting BP (test code = 0744675618) Protocol Name (test LEXISCAN code = 1576717618) Time in Exercise 00:01:00 Phase (test code = 4467463628) Max Systolic BP (test 178 code = 8587863958) Max Diastolic BP 79 (test code = 6798991177) Max Heart Rate (test 81 code = 1789126841) Max Predicted Heart 148 Rate (test code = 3475439881) Test Indication (test code = 0780871512) Arrhy During Ex (test code = 2148925827) ECG Interp Before EX (test code = 2903742871) ECG Interp During Ex (test code = 6094146610) Ex Summary Comment (test code = 1260721929) Overall HR Response to Exercise (test code = 7759471775) Overall BP Response To Exercise (test code = 7178001683) Reason for Termination (test code = 1983767948) Stress Test Waveform interpreted in Impression (test code report associated with = 5762770453) image study. No interpretation is provided as part of this Stress ECG report.-Electronically Signed By Adam HOLLIDAY, [facility] ([id number]), rewrite editor Daysi Chapman ([id number]) on 08/02/2021 5:06:37 PM [facility], (w Contrast, Strain and 3D if needed)2021-08-01 17:44:46 Test Item Value Reference Range Interpretation Comments AoV Area, Vmax (test 2.41 cm2 code = 7067466367) AoV Area, VTI (test 2.36 cm2 code = 5136797604) AoV Mean PG (test 5.59 mmHg code = 3853067371) AoV Peak PG (test 11.08 mmHg code = 6939010006) AoV Vmax (test code 1.77 m/s = 5127750446) AoV VTI (test code = 0.30 m 9211749205) IVS,d (test code = 1.11 cm 8796067228) LV,d (test code = 5.57 cm 0968397248) LV EF,A2C (test code 44.91 % = 8656278743) LV EF,A4C (test code 42.43 % = 4953455790) LV EF,BP (test code 42.76 % = 4696280823) [place],d A2C (test 7.79 cm code = 6590404184) [place],d A4C (test 7.59 cm code = 6309091720) [place],s A2C (test 7.10 cm code = 6624600011) [place],s A4C (test 6.58 cm code = 2158386124) LV,s (test code = 4.42 cm 5479648062) LV SV,A2C (test code 59.18 % = 2218063601) LV SV,A4C (test code 64.42 % = 6884749096) LV Vol,d A2C (test 131.77 mL code = 0663842617) LV Vol,d A4C (test 151.81 ml code = 2866493361) LV Vol,d BP (test 142.79 ml code = 8939065842) LV Vol,s A2C (test 72.60 mL code = 2142761056) LV Vol,s A4C (test 87.39 ml code = 5902028282) LV Vol,s BP (test 81.72 nl code = 7853781783) LVOT Diam,S (test 2.08 cm code = 2853483456) LVOT Vmax (test code 1.16 m/s = 4584833779) LVOT VTI (test code 0.21 m = 5095206643) LVPWD,d (test code = 1.05 cm 7846582450) TR Vpeak (test code 2.66 mm/s = 4116246117) AR Press Half Time 504.65 ms (test code = 2507872519) TR pk grad (test 27.27 mmHg code = 2973467312) MR Vmax (test code = 6.10 m/s 2606791048) MR peak grad (test 121.70 mmHg code = 3218458387) E wave decelartion 149.68 msec time (test code = 8157445518) MV Peak E Des (test 1.46 m/s code = 4307819952) LVOT stroke volume 0.71 cm3 (test code = 3231362030) AV LVOT peak 5.36 mmHg gradient (test code = 0697223078) LV SYS VOL (test 88.60 ml code = 9975846690) LV THOMPSON VOL (test 151.60 ml code = 0140402261) LA area s A4C (test 35.87 cm2 code = 3315195225) LV SV Teich 2D (test 63.00 ml code = 5212587413) LVOT SI (test code = 38.28 ml/m2 5118306597) AoV Cusp sep (test 1.72 code = 4147672447) AoV Vmn (test code = 1.10 4677513768) IVS s 2D (test code 1.72 = 5447943378) AR slope (test code 2.59 = 1487523675) Ar Vmax (test code = 3.99 1834047845) LA Ao Ratio Mmode 2.07 (test code = 5214499663) LVOT Vmn (test code 0.80 = 6355253982) Pt Size (test code = 162.56 1905021121) Pt Wt (test code = 81.19 7376559815) PV AT (test code = 94.20 msec 8461455527) LVOT mean grad (test 2.88 mmHg code = 4067366859) AR DT (test code = 1541.52 msec 1956201428) AR pk grad (test 58.41 mmHg code = 2950574720) LVPW s PLAX (test 1.41 cm code = 2155179126) MV Decel slope (test 9.79 m/s2 code = 0864903472) LA Vol MOD A4C (test 124.31 ml code = 7303255754) Velocity Ratio 0.66 m/s (V1/V2) (test code = 4689) EF (test code = 41.56 % 2673707908) LVOT area (test code 3.40 cm2 = 2740846166) LVOT VTI (CM) (test 21.00 cm code = 2661007822) RA pressure (test 15.00 mmHg code = 3136350691) LA Vol 4C (test code 124.00 ml = 7004303435) RVSP (test code = 43.38 mmHg 9114320095) LA diam s (test code 5.50 cm = 1673016580) Aortic Root (test 2.63 cm code = 8896731226) GA End Thompson Grad 11.73 (test code = 2460944709) GA End Diat Des 1.71 (test code = 7310092484) AR maxPG (test code 63.74 = 2074395257) D E excurs (test 2.00 code = 9046759356) E f slope (test code 0.08 = 5961721890) E prime lat (test 0.06 code = 9484423588) E keaton sept (test 0.09 code = 9034707791) PV acc T slope (test 6.80 code = 1465748322) CONDE BP EF (test 43.00 % code = 7799748213) LA VOL 2C (test code 138.00 ml = 9316347222) VALERIANO (test code = The left ventricle [...] of aortic valve stenosis.PericardiumNo pericardial effusion seen. [facility] BpkxcozsLWZW-TqL-5 (COVID-19) RNA [Presence] in Respiratory specimen by LANG with probe [id number] 23:11:03 Test Item Value Reference Range Interpretation Comments SARS-CoV-2 (COVID-19) RNA Not detected [Presence] in Respiratory specimen by LANG with probe detection (test code = 65659-9) Whether patient is employed in a Unknown healthcare setting (test code = 95878-3) Whether the patient has symptoms Unknown related to condition of interest (test code = 35084-3) Whether the patient was Unknown hospitalized for condition of interest (test code = 50417-8) Whether the patient was admitted Unknown to intensive care unit (ICU) for condition of interest (test code = 79081-8) Whether patient resides in a Unknown congregate care setting (test code = 72503-6) status (test code = Unknown 81620-5) Date and time of symptom onset Unknown (test code = 56088-7) [facility] [Presence] in Respiratory specimen by LANG with probe [id number] 11:45:59 Test Item Value Reference Range Interpretation Comments SARS-CoV-2 (COVID-19) RNA Not detected Not-Detected [Presence] in Respiratory specimen by LANG with probe detection (test code = 23931-6) Whether patient is employed in a healthcare setting (test code = 67740-0) Whether the patient has symptoms related to condition of interest (test code = 67731-5) Patient was hospitalized because of this condition (test code = 25417-1) Whether the patient was admitted to intensive care unit (ICU) for condition of interest (test code = 34867-9) Whether patient resides in a congregate care setting (test code = 75848-5) [facility]-CoV-2 (COVID-19) RNA [Presence] in Respiratory specimen by LANG with probe orjooiwtg6134-31-03 05:28:15 Test Item Value Reference Range Interpretation Comments SARS-CoV-2 (COVID-19) RNA Not detected Not-Detected [Presence] in Respiratory specimen by LANG with probe detection (test code = 90773-1) [facility]-CoV-2 (COVID-19) RNA [Presence] in Respiratory specimen by LANG with probe [id number] 23:52:31 Test Item Value Reference Range Interpretation Comments SARS-CoV-2 (COVID-19) RNA Not detected Not-Detected [Presence] in Respiratory specimen by LANG with probe detection (test code = 84271-6) [facility]
[2022-09-18] MEDS ORDERED: ASPIRIN 81 MG CHEWABLE TABLET ONE (16:53)
[2022-09-18 17:38] LABS: Absolute Lymphocytes (CBC) 1.4 K/uL (0.7-4.9); Hematocrit 30.4 % (36.0-45.0); MCV 80.3 fL (80-100); MPV 7.6 fL (7.6-11.3); RBC Red Blood Cell Count 3.79 M/uL (3.86-4.86)
--- NOTE | 2022-09-18 17:44 | RAD REPORT ---
EXAM DESCRIPTION: RAD - Chest Single View - 09/18/2022 5:34 pm CLINICAL HISTORY: CHEST PAIN COMPARISON: <Comparisons> FINDINGS: Lines: Biventricular pacemaker . Lungs: Pulmonary vascular congestion and prominence of the pulmonary. Pleural: No significant pleural effusions or pneumothorax. Cardiac: Cardiomegaly. Mediastinum: Within normal limits. Bones: No acute fractures. Other: None IMPRESSION: Mild interstitial edema suspected. No consolidative pneumonia.
[2022-09-18 17:50] LABS: Protime INR 1.28
[2022-09-18 18:07] LABS: AST/SGOT 13 U/L (15-37); Albumin 2.7 g/dL (3.4-5.0); Alkaline Phosphatase 139 U/L (45-117); BUN Blood Urea Nitrogen 74 mg/dL (7-18); Bicarbonate 20 mEq/L (21-32); Bilirubin Direct 0.3 mg/dL (0-0.2); Bilirubin Total 0.7 mg/dL (0.2-1.0); Glucose Level 275 mg/dL (74-106); Potassium 4.4 mEq/L (3.5-5.1); Protein, Total 7.5 g/dL (6.4-8.2); Sodium Level 130 mEq/L (136-145); Troponin High Sensitivity 54.9 pg/mL (<58.9)
[2022-09-18] MEDS ORDERED: ALBUTEROL 2.5 MG/3 ML NEB SOL ONE (18:11)
[2022-09-18] MEDS ORDERED: IPRATROPIUM BROM 0.5MG/2.5ML ONE (18:11)
[2022-09-18 18:21] LABS: Glomerular Filtration Rate 7 ml/min (=/>90); NT PRO-BNP 82120 pg/mL (<125)
[2022-09-18 18:22] LABS: ALT/SGPT < 10 U/L (13-56)
--- NOTE | 2022-09-18 18:41 | ER ---
Nurse's Notes [facility] Name: Latricia Cadet Age: 71 yrs Sex: Female : 1950 Arrival Date: 09/18/2022 Time: 16:37 Bed 20 Private MD: Diagnosis: Acute respiratory distress syndrome;Acute pulmonary edema;Chest pain, unspecified;missed dialysis Presentation: 09/18 16:39 Chief complaint: EMS states: chest pain and diarrhea x1 week. pt has also not received kc6 dialysis in x1 week. BGL en route 264. Coronavirus screen: Vaccine status: Patient reports receiving the 2nd dose of the covid vaccine. At this time, the client does not indicate any symptoms associated with coronavirus-19. Ebola Screen: No symptoms or risks identified at this time. Initial Sepsis Screen: Does the patient meet any 2 criteria? No. Patient's initial sepsis screen is negative. Does the patient have a suspected source of infection? No. Patient's initial sepsis screen is negative. Risk Assessment: Do you want to hurt yourself or someone else? Patient reports no desire to harm self or others. Onset of symptoms was September 18, 2022. 16:39 Method Of Arrival: EMS: [facility] kc6 16:39 Acuity: JAKE 3 kc6 Triage Assessment: 16:41 General: Appears in no apparent distress. comfortable, Behavior is calm, cooperative, kc6 appropriate for age. Pain: Complains of pain in chest Pain radiates to back Pain currently is 8 out of 10 on a pain scale. Quality of pain is described as aching, dull, Is continuous. EENT: No signs and/or symptoms were reported regarding the EENT system. Neuro: Ferguson Agitation-Sedation Scale (RASS): 0 - Alert and Calm Level of Consciousness is awake, alert, obeys commands, Oriented to person, place, time, situation, Appropriate for age. Cardiovascular: Heart tones S1 S2 present Capillary refill < 3 seconds Rhythm is sinus rhythm Dialysis shunt: in the right arm, with palpable thrill, with auscultated bruit, with no erythema, with no edema, no bleeding noted. Respiratory: Airway is patent Trachea midline Respiratory effort is even, unlabored, Respiratory pattern is regular, symmetrical. GI: Reports diarrhea, Patient currently denies nausea, vomiting. : No signs and/or symptoms were reported regarding the genitourinary system. Derm: No signs and/or symptoms reported regarding the dermatologic system. Skin is intact, Skin is pink, warm \T\ dry. Musculoskeletal: No signs and/or symptoms reported regarding the musculoskeletal system. Circulation, motion, and sensation intact. Capillary refill < 3 seconds, Range of motion: intact in all extremities. Historical: - Allergies: 16:41 No Known Allergies; kc6 - PMHx: 16:41 angina pectoris; CHF; COPD; Diabetes - NIDDM; heart attack; Hypertension; insomnia; kc6 kidney disease; Rheumatoid Arthritis; Sleep Apnea; dialysis T, TH, Sat.; - PSHx: 16:41 HD Fistula - Right arm; hysterectomy; pacemaker; kc6 - Immunization history:: Client reports receiving the 2nd dose of the Covid vaccine, Flu vaccine status is unknown. - Social history:: Smoking status: Patient denies any tobacco usage or history of. Screenin:43 [facility] ED Fall Risk Assessment (Adult) History of falling in the last 3 months, kc6 including since admission No falls in past 3 months (0 pts) Confusion or Disorientation No (0 pts) Intoxicated or Sedated No (0 pts) Impaired Gait No (0 pts) Mobility Assist Device Used No (0 pt) Altered Elimination No (0 pt) Score/Fall Risk Level 0 - 2 = Low Risk Oriented to surroundings, Maintained a safe environment, Educated pt \T\ family on fall prevention, incl call for assistance when getting out of bed, Assessed \T\ reinforced patient's understanding of fall precautions, Hourly rounding (assess needs \T\ fall precautionary measures) done. Abuse screen: Denies threats or abuse. Denies injuries from another. Nutritional screening: No deficits noted. Tuberculosis screening: No symptoms or risk factors identified. Assessment: 16:43 Reassessment: please see triage assessment. kc6 17:30 Reassessment: Patient appears in no apparent distress at this time. No changes from 6 previously documented assessment. Patient and/or family updated on plan of care and expected duration. Pain level reassessed. Patient is alert, oriented x 3, equal unlabored respirations, skin warm/dry/pink. 18:25 Reassessment: Patient appears in no apparent distress at this time. No changes from [facility] previously documented assessment. Patient and/or family updated on plan of care and expected duration. Pain level reassessed. Patient is alert, oriented x 3, equal unlabored respirations, skin warm/dry/pink. 20:05 General: Appears in no apparent distress. comfortable, Behavior is calm, cooperative. lg3 Pain: Complains of pain in chest Pain currently is 3 out of 10 on a pain scale. Pain began 2-3 days ago. Pain: Pain does not radiate. Quality of pain is described as pressure, squeezing. Neuro: No deficits noted. Ferguson Agitation-Sedation Scale (RASS): 0 - Alert and Calm Level of Consciousness is awake, alert, obeys commands, Oriented to person, place, time, situation. Cardiovascular: No deficits noted. Capillary refill < 3 seconds Clubbing of nail beds is absent JVD is absent Patient's skin is warm and dry. Respiratory: No deficits noted. Airway is patent Respiratory effort is even, unlabored, Respiratory pattern is regular, symmetrical. GI: No deficits noted. Reports diarrhea. : No deficits noted. No signs and/or symptoms were reported regarding the genitourinary system. EENT: No deficits noted. No signs and/or symptoms were reported regarding the EENT system. Derm: No deficits noted. No signs and/or symptoms reported regarding the dermatologic system. Skin is intact, is thin, Skin is dry, Skin is normal, Skin temperature is warm. Musculoskeletal: No deficits noted. No signs and/or symptoms reported regarding the musculoskeletal system. Circulation, motion, and sensation intact. Range of motion: intact in all extremities. 20:21 General: ultrasound at bedside. lg3 Vital Signs: 16:39 BP 150 / 58; Pulse 80; Resp 27 S; Temp 98.2(O); Pulse Ox 97% on R/A; Weight 73.48 kg kc6 (M); Height 5 ft. 3 in. (R); Pain 8/10; 17:32 BP 161 / 77; Pulse 93; Resp 29 S; Pulse Ox 98% on R/A; kc6 18:25 BP 155 / 67; Pulse 96; Resp 19 S; Pulse Ox 100% on R/A; kc6 16:39 Body Mass Index 28.70 (73.48 kg, 160.02 cm) [facility] 16:39 Pain Scale: Adult [facility] ED Course: 16:39 Patient arrived in ED. [facility] 16:39 Yboani Toledo MD is Attending Physician. jr11 16:39 Gemma Navarro RN is Primary Nurse. kc6 16:41 Triage completed. kc6 16:41 Arm band placed on. kc6 16:44 Patient has correct armband on for positive identification. Placed in gown. Bed in low kc6 position. Call light in reach. Side rails up X2. Client placed on continuous cardiac and pulse oximetry monitoring. NIBP monitoring applied. design engineering intern on. 16:44 Patient maintains SpO2 saturation greater than 95% on room air. kc6 17:32 Inserted saline lock: 24 gauge in left wrist, using aseptic technique. ,using aseptic kc6 technique. inserted by JUAN R Cardnoa Blood collected. 17:36 XRAY Chest (1 view) In Process Unspecified. EDMS 18:40 Anthony White MD is Hospitalizing Provider. jr11 20:05 No provider procedures requiring assistance completed. Patient admitted, IV remains in lg3 place. intact, No redness/swelling at site. 21:17 Inserted saline lock: 20 gauge in left forearm, using aseptic technique. ,using aseptic nj1 technique. Ultrasound guided. Administered Medications: 17:00 Drug: Aspirin PO Chewable Tablet 324 mg Route: PO; kc6 18:00 Follow up: Response: No adverse reaction kc6 18:11 Drug: DuoNeb Nebulize (3:1) (2.5 mg - 0.5 mg) 3 ml Route: Nebulizer; kc6 19:20 Follow up: Response: No adverse reaction kc6 20:00 CANCELLED (Patient Refused): AZITHromycin IVPB 500 mg IVPB once over 1 hrs; (mix in 250 la1 mL NS) 20:00 CANCELLED (Other Intervention Used): Rocephin IV 1 grams IV at calculated rate once; la1 Given slow IV push per pharmacy instructions 20:04 Drug: Nitroglycerin Transdermal Ointment 2 % 0.5 inches Route: Transdermal; Site: lg3 anterior chest wall; 20:05 Drug: Furosemide IVP 80 mg Route: IVP; Site: left wrist; lg3 Medication: 20:05 VIS not applicable for this client. lg3 Outcome: 18:41 Decision to Hospitalize by Provider. jr11 20:05 Admitted to Med/surg accompanied by tech, via stretcher, room 213. lg3 20:05 Condition: stable 20:05 Instructed on the need for admit, Demonstrated understanding of instructions. 22:03 Patient left the ED. lg3 Signatures: Dispatcher [employer] EDMichaela Montanez, RN RN lg3 Yobani Toledo MD MD jr11 Gemma Navarro RN RN kc6 Dulce Cervantes RN RN nj1 Rick Hogue MARRIAGE THERAPIST-Cla1
--- NOTE | 2022-09-18 18:42 | EDPHYS ---
Physician Documentation [facility] Name: Latricia Cadet Age: 71 yrs Sex: Female : 1950 Arrival Date: 09/18/2022 Time: 16:37 Bed 20 Private MD: ED Physician Yobani Toledo HPI: 09/18 16:57 This 71 yrs old Female presents to ER via EMS with complaints of Chest Pain. jr11 16:57 Patient is a 71-year-old with history of congestive heart failure history of prior jr11 heart attacks pacemaker here with chest pain over the course of the last week. Patient states that the pain is vague, an ache constantly there, states been there a week, did not come earlier because she thought it was can go away on its own. Patient states last cardiology visit was about 6 months ago. Patient with COPD, states that she also has had a cough and a sore throat. Denies any fever. No nausea no vomiting no abdominal pain. Historical: - Allergies: 16:41 No Known Allergies; kc6 - PMHx: 16:41 angina pectoris; CHF; COPD; Diabetes - NIDDM; heart attack; Hypertension; insomnia; kc6 kidney disease; Rheumatoid Arthritis; Sleep Apnea; dialysis T, TH, Sat.; - PSHx: 16:41 HD Fistula - Right arm; hysterectomy; pacemaker; kc6 - Immunization history:: Client reports receiving the 2nd dose of the Covid vaccine, Flu vaccine status is unknown. - Social history:: Smoking status: Patient denies any tobacco usage or history of. ROS: 16:57 All other systems are negative. jr11 Exam: 16:57 Constitutional: This is a well developed, well nourished patient who is awake, alert, jr11 and in no acute distress. Head/Face: Normocephalic, atraumatic. Eyes: Extra-ocular motions intact. Lids and lashes normal. Conjunctiva and sclera are non-icteric and not injected. Cornea within normal limits. Periorbital areas with no swelling, redness, or edema. Neck: Trachea midline, no thyromegaly or masses palpated, and no cervical lymphadenopathy. Supple, full range of motion without nuchal rigidity, or vertebral point tenderness. No Meningismus. Cardiovascular: Regular rate and rhythm with a normal S1 and S2. No gallops, murmurs, or rubs. Normal PMI, no JVD. No pulse deficits. Respiratory: diminsihed diffusely, +wheezing Abdomen/GI: Soft, non-tender, with normal bowel sounds. No distension or tympany. No guarding or rebound. No evidence of tenderness throughout. Back: No spinal tenderness. No costovertebral tenderness. Full range of motion. Skin: Warm, dry with normal turgor. Normal color with no rashes, no lesions, and no evidence of cellulitis. MS/ Extremity: Pulses equal, no cyanosis. Neurovascular intact. Full, normal range of motion. Neuro: Awake and alert, GCS 15, oriented to person, place, time, and situation. No gross motor or sensory deficits. Vital Signs: 16:39 BP 150 / 58; Pulse 80; Resp 27 S; Temp 98.2(O); Pulse Ox 97% on R/A; Weight 73.48 kg kc6 (M); Height 5 ft. 3 in. (R); Pain 8/10; 17:32 BP 161 / 77; Pulse 93; Resp 29 S; Pulse Ox 98% on R/A; kc6 18:25 BP 155 / 67; Pulse 96; Resp 19 S; Pulse Ox 100% on R/A; kc6 16:39 Body Mass Index 28.70 (73.48 kg, 160.02 cm) kc6 16:39 Pain Scale: Adult kc6 MDM: 16:39 Patient medically screened. jr11 16:57 Differential diagnosis: anxiety, chest wall pain, congestive heart failure gastritis, jr11 pleurisy, pneumonia, pneumothorax. Data reviewed: vital signs, nurses notes. ED course: EKG interpreted by me shows paced rhythm, no STEMI. Patient is a 71-year-old with chest pain, greater than 1 week, nonpleuritic nonexertional, atypical features. Patient also with a cough and sore throat, cough likely an exacerbating factor for her chest pain, may be secondary to pneumonia versus a COPD exacerbation. Less likely cardiac. We will get cardiac markers, x2. Discussed with cardiology if needed.. 18:24 HEART Score: History: Slightly Suspicious (0), ECG: Non specific repolarization jr11 disturbance / LBTB / PM (1), Age: > or = 65 years (2), Risk Factors: > or = 3 Risk factors for atherosclerotic disease (2), [Hypercholesterolemia] [Hypertension] [Obesity] Troponin: > 1 and < 3 x normal limit (1). 18:28 ED course: Pt missed dialysis x 1 week, RUE fistula, Will admit, speak to Rick on 11 admission for CP DONOVAN HEART score 5, COPD exacerbation, and VQ scan . 09/18 16:40 Order name: Basic Metabolic Panel; Complete Time: 18:23 [facility] 09/18 16:40 Order name: CBC with Diff; Complete Time: 17:54 [facility] 09/18 16:40 Order name: D-Dimer; Complete Time: 17:54 09/18 16:40 Order name: LFT's; Complete Time: 18:23 [facility] 09/18 16:40 Order name: Magnesium; Complete Time: 18:23 [facility] 09/18 16:40 Order name: NT PRO-BNP; Complete Time: 18:23 [facility] 09/18 16:40 Order name: PT-INR; Complete Time: 17:54 [facility] 09/18 16:40 Order name: Troponin HS; Complete Time: 18:23 [facility] 09/18 16:51 Order name: COVID-19 SARS RT PCR; Complete Time: 18:05 [facility] 09/18 16:40 Order name: XRAY Chest (1 view); Complete Time: 17:45 [facility] 09/18 18:23 Order name: VQ scan (Nuclear Medicine) 09/18 18:56 Order name: Extrem Venous W Compression Trevin US la1 09/18 21:14 Order name: US EDMS 09/18 16:40 Order name: EKG; Complete Time: 16:41 [facility] 09/18 16:40 Order name: Cardiac monitoring; Complete Time: 17:00 [facility] 09/18 16:40 Order name: EKG - Nurse/Tech; Complete Time: 17:00 09/18 16:40 Order name: IV Saline Lock; Complete Time: 17:32 09/18 16:40 Order name: Labs collected and sent; Complete Time: 17:32 [facility] 09/18 16:40 Order name: O2 Per Protocol; Complete Time: 17:00 09/18 16:40 Order name: O2 Sat Monitoring; Complete Time: 17:00 Administered Medications: 17:00 Drug: Aspirin PO Chewable Tablet 324 mg Route: PO; kc6 18:00 Follow up: Response: No adverse reaction [facility] 18:11 Drug: DuoNeb Nebulize (3:1) (2.5 mg - 0.5 mg) 3 ml Route: Nebulizer; kc 19:20 Follow up: Response: No adverse reaction [facility] 20:00 CANCELLED (Patient Refused): AZITHromycin IVPB 500 mg IVPB once over 1 hrs; (mix in 250 la1 mL NS) 20:00 CANCELLED (Other Intervention Used): Rocephin IV 1 grams IV at calculated rate once; la1 Given slow IV push per pharmacy instructions 20:04 Drug: Nitroglycerin Transdermal Ointment 2 % 0.5 inches Route: Transdermal; Site: lg3 anterior chest wall; 20:05 Drug: Furosemide IVP 80 mg Route: IVP; Site: left wrist; lg3 Disposition Summary: 09/18/22 18:41 Hospitalization Ordered Hospitalization Status: Observation [facility] Provider: Anthony White [facility] Location: Telemetry/MedSurg (observation) [facility] Condition: Fair jr Problem: new jr11 Symptoms: are unchanged [facility] Bed/Room Type: Standard [facility] Room Assignment: 212(09/18/22 20:15) cg Diagnosis - Acute respiratory distress syndrome jr11 - Acute pulmonary edema jr11 - Chest pain, unspecified jr11 - missed dialysis [facility] Forms: - Medication Reconciliation Form jr11 - SBAR form jr11 Signatures: Dispatcher [employer] EDRandi Dumont RN RN Michaela Clark RN RN lg3 Yobani Toledo MD MD jr Gemma Navarro RN RN [facility] Rick Hogue [facility] Corrections: (The following items were deleted from the chart) 19:48 18:41 jr11 cg 20:00 18:31 AZITHromycin IVPB 500 mg IVPB once over 1 hrs; (mix in 250 mL NS) ordered. jr la1 20:00 18:31 Rocephin IV 1 grams IV at calculated rate once; Given slow IV push per pharmacy la1 instructions ordered. [facility] 20:15 19:48 213 cg cg
--- NOTE | 2022-09-18 19:13 | P.HP ---
Certification for Inpatient Patient admitted to: Observation With expected LOS: <2 Midnights Patient will require the following post-hospital care: None Practitioner: I am a practitioner with admitting privileges, knowledge of patient current condition, hospital course, and medical plan of care. Services: Services provided to patient in accordance with Admission requirements found in Title 42 Section 412.3 of the Code of Federal Regulations Patient History Date of Service: 09/18/22 Reason for admission: Chest pain, ESRD History of Present Illness: 71-year-old female with history of ESRD on HD TTS, CAD, CHF, insulin-dependent diabetes, hypertension, ART, RA presents to the emergency department with chief complaint of chest pain. She has been unable to make it to dialysis for the last 1 week as she been having frequent diarrhea which is since resolved. She does report chest pain, she cannot describe it further than to say" pain". She also does feel short of breath at rest. She was evaluated in the emergency department her labs are significant for D-dimer 7601 sodium 130 creatinine 5.69 GFR 7 glucose 275 BNP 82,120 bicarb is 20 COVID swab is negative chest x-ray shows mild interstitial edema suspected no consolidative pneumonia. In the ER she was given Lasix, Rocephin, Zithromax she does take Eliquis at home, she has not been hypoxic she does make urine for that reason CT PE protocol was not performed, VQ scan ordered. We will continue patient's Eliquis in the meantime until DVT/PE is ruled out, venous Doppler lower extremities ordered bilaterally. Allergies No Known Allergies Allergy (Verified 01/02/22 02:33) Home Medications: Furosemide [Lasix] 80 mg PO BID* 04/14/20 Isosorbide Mononitrate [Isosorbide Mononitrate ER] 60 mg PO DAILY 04/14/20 Escitalopram [Lexapro*] 10 mg PO BEDTIME 11/27/21 Pantoprazole [Protonix Tab*] 40 mg PO DAILY 11/27/21 Sevelamer Carbonate [Renvela*] 2 tab PO TIDWM 01/02/22 Apixaban [Eliquis *] 2.5 mg PO BID #30 tab 05/08/22 Gabapentin 100 mg PO BID 07/19/22 Midodrine HCl 5 mg PO BID 07/19/22 Heparin [Heparin 1,000 units/mL *] 3,000 unit IV EVERY HD PRN vial 07/31/22 Mannitol 25% [Mannitol*] 12.5 gm IV EVERY HD PRN vial 07/31/22 - Past Medical/Surgical History Diabetic: Yes -: Diabetes mellitus type 2-insulin dependent -: Rheumatoid arthritis -: Hypertension -: Hyperlipidemia -: Chronic congestive heart failure-unknown EF -: ESRD on HD -: CAD -: L ankle fusion -: hysterectomy -: Dialysis catheter placement and removal -: Cholecystectomy -: pacemaker/defibrillator Psychosocial/ Personal History: Patient lives with her - Family History Family History: Reviewed- Non-Contributory - Social History Smoking Status: Never smoker Alcohol use: No CD- Drugs: No Caffeine use: Yes Place of Residence: Home Review of Systems 10-point ROS is otherwise unremarkable Respiratory: Shortness of Breath Cardiovascular: Chest Pain Physical Examination - Physical Exam General: Alert, In no apparent distress, Oriented x3, Obese HEENT: Atraumatic, PERRLA, Mucous membr. moist/pink, EOMI, Sclerae nonicteric Neck: Supple, 2+ carotid pulse no bruit, No LAD, Without JVD or thyroid abnormality Respiratory: Diminished Cardiovascular: Regular rate/rhythm, Normal S1 S2 Capillary refill: <2 Seconds Gastrointestinal: Normal bowel sounds, No tenderness Musculoskeletal: No tenderness Integumentary: No rashes, Arterial ulcer (Present to tip of fingers, right hand) Neurological: Normal speech, Normal strength at 5/5 x4 extr, Normal tone, Normal affect - Studies Laboratory Data (last 24 hrs) 09/18/22 17:25: PT 14.1 H, INR 1.28 09/18/22 17:25: WBC 7.30, Hgb 9.9 L, Hct 30.4 L, Plt Count 356 09/18/22 17:25: Sodium 130 L, Potassium 4.4, BUN 74 H, Creatinine 5.69 H, Glucose 275 H, Magnesium 2.0, Total Bilirubin 0.7, AST 13 L, ALT < 10 L, Alkaline Phosphatase 139 H Assessment and Plan - Plan Assessment: Chest pain rule out ACS/PE-history of CAD ESRD on HD TTS with noncompliance/volume overload Diabetes mellitus type 2insulin-dependent with hyperglycemia Hypertension RA Plan: Chest pain rule out ACS/PE-history of CAD Trend troponins, monitor on telemetry, continue home medications including isosorbide. Continue Eliquis we will obtain VQ scan to rule out pulmonary embolism as well as venous Dopplers bilateral lower extremity as D-dimer significantly elevated. Cardiology consulted. She reports last heart cat heterization was few years ago. ESRD on HD TTS with noncompliance/volume overload Nephrology consulted for hemodialysis Diabetes mellitus type 2insulin-dependent with hyperglycemia ACHS Accu-Chek, sliding scale insulin, A1c in the morning. Hypertension RA Continue home meds. DVT PPX: Continue Eliquis Code status: Full code Discharge Plan: Home Plan to discharge in: 24 Hours - Advance Directives Does patient have a Living Will: No Does patient have a Durable POA for Healthcare: No - Code Status/Comfort Care Code Status Assessed: Yes (Full code) Critical Care: No Time Spent Managing Pts Care (In Minutes): 70
[2022-09-18] MEDS ORDERED: FUROSEMIDE 100 MG/10 ML VIAL IV ONE (20:00)
[2022-09-18] MEDS ORDERED: AZITHROMYCIN 500 MG INJ IVPB ONE (20:01)
[2022-09-18] MEDS ORDERED: CEFTRIAXONE 1000 MG/VIAL ONE (20:01)
[2022-09-18] MEDS ORDERED: NITROGLYCERIN 1 GM PKT TD ONE (20:01)
[2022-09-18] MEDS ORDERED: NA CHLORIDE 0.9% 0 ML ONE (20:01)
--- NOTE | 2022-09-18 21:11 | RAD REPORT ---
EXAM DESCRIPTION: US - Extrem Venous W Compress Trevin - 09/18/2022 9:02 pm CLINICAL HISTORY: R/O DVT, Elevated DD COMPARISON: Extrem Venous W Compress Trevin dated 06/08/2022 TECHNIQUE: Real-time sonographic evaluation of the lower extremity deep venous systems was performed using color Doppler, grayscale, and compression. FINDINGS: Bilateral lower extremities. Normal compressibility, flow augmentation, phasic flow and spontaneous flow is identified in both the left and right lower extremity deep venous systems. No intraluminal filling defects seen. IMPRESSION: No DVT in either lower extremity.
[2022-09-18] MEDS ORDERED: ONDANSETRON 4 MG/2 ML VIAL IV PRN (22:24)
[2022-09-18] MEDS ORDERED: MORPHINE 2 MG/ML SYR IV PRN (22:24)
[2022-09-18] MEDS: INSULIN -REGULAR HUMAN 50 UNIT/0.5 ML ML SQ SCH (22:24)
[2022-09-18] MEDS: APIXABAN 2.5 MG TABLET PO SCH (22:38)
[2022-09-19 00:52] VITALS: BMI 28.7
[2022-09-19 04:27] LABS: Absolute Lymphocytes (CBC) 1.6 K/uL (0.7-4.9); Hematocrit 28.4 % (36.0-45.0); MCV 79.8 fL (80-100); MPV 7.7 fL (7.6-11.3); RBC Red Blood Cell Count 3.56 M/uL (3.86-4.86)
[2022-09-19 04:43] LABS: Troponin High Sensitivity 54.6 pg/mL (<58.9)
[2022-09-19] MEDS: PANTOPRAZOLE 40MG TABLET PO SCH (05:32)
[2022-09-19] MEDS ORDERED: PNEUMOCOCCAL VACCINE 0.5 ML IMVAC ONE (08:00)
[2022-09-19] MEDS ORDERED: FUROSEMIDE 40 MG/4 ML VIAL IV SCH (09:00)
[2022-09-19] MEDS: INSULIN -REGULAR HUMAN 50 UNIT/0.5 ML ML SQ SCH ×4 (10:01→21:00)
[2022-09-19] MEDS: APIXABAN 2.5 MG TABLET PO SCH ×2 (10:02→21:05)
--- NOTE | 2022-09-19 10:21 | RAD REPORT ---
EXAM DESCRIPTION: NM - Vent Perfusion VQ Scan - 09/19/2022 10:05 am CLINICAL HISTORY: Chest pain COMPARISON: Chest radiograph 09/18/2022 TECHNIQUE: The patient was administered 20.1 Xenon 133 gas with posterior projection inspiration, eq uilibrium, and washout views obtained. The patient was then administered 6.6 Tc-99m SC labeled RBCs f ollowed by standard 8 view protocol. FINDINGS: Large ventilation defect in the left upper and left lower lobes. No ventilation defects in the right lung. No perfusion defects identified. IMPRESSION: Pulmonary embolus absent.
--- NOTE | 2022-09-19 12:39 | EKG ---
Test Date: 2022-09-18 Test Time: 16:54:13 Agronomy Teacher: TREVOR MEASUREMENT RESULTS: Intervals: Rate: 84 [place]: QRSD: 126 QT: 398 QTc: 470 [place]: P: [place]: QRS: -68 T: 95 INTERPRETIVE STATEMENTS: Suspect unspecified pacemaker failure Ventricular-paced rhythm with intrinsic complexes Abnormal ECG Compared to ECG 07/30/2022 03:09:37 Sinus rhythm no longer present Left-axis deviation no longer present Right bundle-branch block no longer present Myocardial infarct finding no longer present Electronically Signed On 09-19-22 12:37:11 CDT by Aakash Ashford
[2022-09-19] MEDS ORDERED: FUROSEMIDE 40 MG/4 ML VIAL IV ONE (15:31)
[2022-09-19] MEDS ORDERED: EPOETIN ALFA 10,000 UNIT/ML VIAL SQ SCH (20:00)
--- NOTE | 2022-09-19 20:37 | P.CNS ---
Date of Consult: 09/19/22 Reason for Consult: ESRD Requesting Physician: Jarrod Leiva Chief Complaint: Chest pain, ESRD History of Present Illness: 71-year-old female with history of ESRD on HD TTS, CAD, CHF, insulin-dependent diabetes, hypertension, ART, RA presents to the emergency department with chief complaint of chest pain. She has been unable to make it to dialysis for the last 1 week as she been having frequent diarrhea which is since resolved. She does report chest pain, she cannot describe it further than to say" pain". She also does feel short of breath at rest. She was evaluated in the emergency department her labs are significant for D-dimer 7601 sodium 130 creatinine 5.69 GFR 7 glucose 275 BNP 82,120 bicarb is 20 COVID swab is negative chest x-ray shows mild interstitial edema suspected no consolidative pneumonia. In the ER she was given Lasix, Rocephin, Zithromax she does take Eliquis at home, she has not been hypoxic she does make urine for that reason CT PE protocol was not performed, VQ scan ordered. We will continue patient's Eliquis in the meantime until DVT/PE is ruled out, venous Doppler lower extremities ordered bilaterally. CleanApp 16:57 This 71 yrs old Female presents to ER via EMS with complaints of Chest Pain. jr11 16:57 Patient is a 71-year-old with history of congestive heart failure history of prior jr11 heart attacks pacemaker here with chest pain over the course of the last week. Patient states that the pain is vague, an ache constantly there, states been there a week, did not come earlier because she thought it was can go away on its own. Patient states last cardiology visit was about 6 months ago. Patient with COPD, states that she also has had a cough and a sore throat. Denies any fever. No nausea no vomiting no abdominal pain. CleanApp 16:39 Chief complaint: EMS states: chest pain and diarrhea x1 week. pt has also not received kc6 dialysis in x1 week. BGL en route 264. Coronavirus screen: Vaccine status: Patient reports receiving the 2nd dose of the covid vaccine. At this time, the client does not indicate any symptoms associated with coronavirus-19. Ebola Screen: No symptoms or risks identified at this time. Initial Sepsis Screen: Does the patient meet any 2 criteria? No. Patient's initial sepsis screen is negative. Does the patient have a suspected source of infection? No. Patient's initial sepsis screen is negative. Risk Assessment: Do you want to hurt yourself or someone else? Patient reports no desire to harm self or others. Onset of symptoms was September 18, 2022. Allergies No Known Allergies Allergy (Verified 01/02/22 02:33) Home medications list reviewed: Yes Home Medications: Furosemide [Lasix] 80 mg PO BID* 04/14/20 Isosorbide Mononitrate [Isosorbide Mononitrate ER] 60 mg PO DAILY 04/14/20 Pantoprazole [Protonix Tab*] 40 mg PO DAILY 11/27/21 Sevelamer Carbonate [Renvela*] 2 tab PO TIDWM 01/02/22 Apixaban [Eliquis *] 2.5 mg PO BID #30 tab 05/08/22 Gabapentin 100 mg PO BID 07/19/22 Midodrine HCl 5 mg PO BID 07/19/22 - Past Medical/Surgical History Diabetic: Yes -: Diabetes mellitus type 2-insulin dependent -: Rheumatoid arthritis -: Hypertension -: Hyperlipidemia -: Chronic congestive heart failure-unknown EF -: ESRD on HD (Dr. Lora) -: CAD -: L ankle fusion -: hysterectomy -: Dialysis catheter placement and removal -: Cholecystectomy -: pacemaker/defibrillator Psychosocial/ Personal History: Patient lives with her - Social History Smoking Status: Unknown if ever smoked Alcohol use: No CD- Drugs: No Caffeine use: Yes Place of Residence: Home Review of Systems 10-point ROS is otherwise unremarkable General: Weakness, Malaise Physical Examination Temp Pulse Resp BP Pulse Ox 97.1 F 80 20 151/61 H 99 09/19/22 16:00 09/19/22 16:00 09/19/22 16:00 09/19/22 16:00 09/19/22 16:00 General: In no apparent distress, Cooperative HEENT: Atraumatic Neck: Supple Respiratory: Normal air movement Cardiovascular: No edema, Regular rate/rhythm Gastrointestinal: Soft and benign, Non-distended Musculoskeletal: No clubbing, No contractures Integumentary: No rashes, No cyanosis Neurological: Normal speech Blood work reviewed in the chart. Imagings Data: EXAM DESCRIPTION: US - Extrem Venous W Compress Trevin - 09/18/2022 9:02 pm CLINICAL HISTORY: R/O DVT, Elevated DD COMPARISON: Extrem Venous W Compress Trevin dated 06/08/2022 TECHNIQUE: Real-time sonographic evaluation of the lower extremity deep venous systems was performed using color Doppler, grayscale, and compression. FINDINGS: Bilateral lower extremities. Normal compressibility, flow augmentation, phasic flow and spontaneous flow is identified in both the left and right lower extremity deep venous systems. No intraluminal filling defects seen. IMPRESSION: No DVT in either lower extremity. EXAM DESCRIPTION: NM - Vent Perfusion VQ Scan - 09/19/2022 10:05 am CLINICAL HISTORY: Chest pain COMPARISON: Chest radiograph 09/18/2022 TECHNIQUE: The patient was administered 20.1 Xenon 133 gas with posterior projection inspiration, equilibrium, and washout views obtained. The patient was then administered 6.6 Tc-99m SC labeled RBCs followed by standard 8 view protocol. FINDINGS: Large ventilation defect in the left upper and left lower lobes. No ventilation defects in the right lung. No perfusion defects identified. IMPRESSION: Pulmonary embolus absent. EXAM DESCRIPTION: RAD - Chest Single View - 09/18/2022 5:34 pm CLINICAL HISTORY: CHEST PAIN COMPARISON: <Comparisons> FINDINGS: Lines: Biventricular pacemaker . Lungs: Pulmonary vascular congestion and prominence of the pulmonary. Pleural: No significant pleural effusions or pneumothorax. Cardiac: Cardiomegaly. Mediastinum: Within normal limits. Bones: No acute fractures. Other: None IMPRESSION: Mild interstitial edema suspected. No consolidative pneumonia. Conclusions/Impression: ESRD on HD -HD TIW TTS Hyponatremia -HD TIW HTN with CKD/ CHF -Hold antihypertensives Diastolic CHF, chronic -Low sodium diet -HD with UF DM II with CKD, Polyneuropathy and Hyperglycemia -RISS -Restart Gabapentin prn Moderate malnutrition/ Hypoalbuminemia Decreased functional ability -Start Nepro -PT as tolerated Anemia in CKD Iron Deficiency 6% -Monitor H&H -Consider IV iron CKD MBD PTH 455 -Start Ergo Case reviewed with Dr. Leiva and Dr. Lora Thank you kindly for the consultation
[2022-09-19] MEDS ORDERED: MANNITOL 25% 12.5 GM/50 ML VIAL IV PRN (20:54)
[2022-09-19] MEDS ORDERED: NA CHLORIDE 0.9% 1,000 ML IV PRN (20:54)
[2022-09-19] MEDS ORDERED: DRISDOL (VITAMIN D=ERGOCALCIFEROL) 50000 UNIT CAP PO SCH (21:00)
[2022-09-19] MEDS ORDERED: ALBUMIN HUMAN 25% 50 ML IV SCH (21:00)
[2022-09-19] MEDS: NEPRO SHAKE 237 ML CAN PO SCH (21:00)
[2022-09-19] MEDS: DOCUSATE NA 100 MG CAP PO SCH (21:05)
[2022-09-19] MEDS ORDERED: EPOETIN ALFA-EPBX 10,000 UNIT/ML VIAL ONE (21:06)
--- NOTE | 2022-09-19 21:34 | CON ---
Date of Consultation: 09/19/[address] Leiva with chest pain on 09/18/2022. I saw the patient on 09/19/2022. History Of Present Illness: Ms. Cadet is a 71-year-old woman on hemodialysis, missed her hemodialys is x1, has a history of pacemaker, CAD, CHF, diabetes, COPD. She came in with chest pain, shortness of breath. Creatinine was 5.74, hemoglobin 9.9. D-dimer was 7600. BNP is 82,000. She has had an e chocardiogram in 2021 that was normal. Today, she had a venous Doppler that was negative. EKG showe d right bundle-branch block, chest pain not reported. Troponin was negative. Past Medical History: As stated above. Allergies: SHE IS ALLERGIC TO NO MEDICATION. Review of Systems: Negative. Social History: Negative. Family History: Negative. Medications: At home include Eliquis, Lasix, insulin, Imdur, and midodrine. Physical Examination: Ms. Cadet's physical examination was done mostly by the hospitalist and Dr. Leiva. VITAL SIGNS: Stable. She is afebrile. HEART: No clinical evidence of congestive heart failure by examination. Diagnostic Data: Showed hemoglobin 9.9. D-dimer is 7600 with a negative venous Doppler. BNP of 82, 000. Echo, 2021, that was normal. EKG showed right bundle-branch block. V/Q scan is pending. Impression And Plan: 1.Chest pain, atypical, most likely secondary to missing her hemodialysis and fluid retention. 2.Anemia. 3.Elevated D-dimer and BNP secondary to renal failure, abnormal EKG that is chronic. 4.History of coronary artery disease, congestive heart failure, diabetes, and chronic obstructive pu lmonary disease. Her congestive heart failure must be diastolic. She definitely does not have conge stive heart failure now. I think we need to continue present regimen. We need to consider beta bloc kers, consider increasing her Imdur level. She can go home whenever it is okay with Dr. Leiva. I thi nk she needs to have an outpatient Lexiscan. I will make arrangements for that. NB/MODL Voice ID: [id number] Report ID: [id number]
[2022-09-19 23:38] VITALS: O2SAT 95
[2022-09-20] MEDS: PANTOPRAZOLE 40MG TABLET PO SCH (06:03)
[2022-09-20 06:23] LABS: Absolute Lymphocytes (CBC) 1.7 K/uL (0.7-4.9); Hematocrit 31.8 % (36.0-45.0); Lymphocytes % 21.9 % (15.3-44.8); MCV 82.2 fL (80-100); MPV 7.6 fL (7.6-11.3); RBC Red Blood Cell Count 3.87 M/uL (3.86-4.86)
[2022-09-20 06:51] LABS: Phosphorus 6.1 mg/dL (2.5-4.9); Thyroid Stimulating Hormone 1.59 uIU/mL (0.358-3.740); Uric Acid 10.7 mg/dL (2.6-6.0)
[2022-09-20] MEDS: INSULIN -REGULAR HUMAN 50 UNIT/0.5 ML ML SQ SCH ×3 (07:30→16:30)
[2022-09-20 07:40] LABS: Hepatitis B Core Ab, Total Nonreactive (Nonreactive); Hepatitis B surface AG Interp. Nonreactive (Nonreactive)
[2022-09-20] MEDS: NEPRO SHAKE 237 ML CAN PO SCH ×2 (08:39→13:16)
[2022-09-20] MEDS: APIXABAN 2.5 MG TABLET PO SCH (08:39)
[2022-09-20] MEDS: DOCUSATE NA 100 MG CAP PO SCH (08:39)
[2022-09-20] MEDS ORDERED: MULTIVITAMINS,THERAPEUT 1 TAB PO SCH (09:00)
[2022-09-20 09:30] LABS: Hepatitis B Surface Ab - Quant 44.11 mIU/mL (<8.0)
[2022-09-20 16:52] VITALS: BP 144/66; TEMP 98.2
--- NOTE | 2022-09-20 21:08 | P.PN ---
Date of Service: 09/20/22 Vital Signs Temp Pulse Resp BP Pulse Ox 98.2 F 80 18 144/66 H 100 09/20/22 16:00 09/20/22 16:00 09/20/22 16:00 09/20/22 16:00 09/20/22 16:00 Assessment/ Plan: Nephrology No dyspnea No chest pain Improving appetite No acute events overnight Vitals, medications, blood work and imaging reviewed in the chart. General: In no apparent distress, Cooperative HEENT: Atraumatic Neck: Supple Respiratory: Normal air movement Cardiovascular: No edema, Regular rate/rhythm Gastrointestinal: Soft and benign, Non-distended Musculoskeletal: No clubbing, No contractures Integumentary: No rashes, No cyanosis Neurological: Normal speech Blood work reviewed in the chart. Imagings Data: EXAM DESCRIPTION: US - Extrem Venous W Compress Trevin - 09/18/2022 9:02 pm CLINICAL HISTORY: R/O DVT, Elevated DD COMPARISON: Extrem Venous W Compress Trevin dated 06/08/2022 TECHNIQUE: Real-time sonographic evaluation of the lower extremity deep venous systems was performed using color Doppler, grayscale, and compression. FINDINGS: Bilateral lower extremities. Normal compressibility, flow augmentation, phasic flow and spontaneous flow is identified in both the left and right lower extremity deep venous systems. No intraluminal filling defects seen. IMPRESSION: No DVT in either lower extremity. EXAM DESCRIPTION: NM - Vent Perfusion VQ Scan - 09/19/2022 10:05 am CLINICAL HISTORY: Chest pain COMPARISON: Chest radiograph 09/18/2022 TECHNIQUE: The patient was administered 20.1 Xenon 133 gas with posterior projection inspiration, equilibrium, and washout views obtained. The patient was then administered 6.6 Tc-99m SC labeled RBCs followed by standard 8 view protocol. FINDINGS: Large ventilation defect in the left upper and left lower lobes. No ventilation defects in the right lung. No perfusion defects identified. IMPRESSION: Pulmonary embolus absent. EXAM DESCRIPTION: RAD - Chest Single View - 09/18/2022 5:34 pm CLINICAL HISTORY: CHEST PAIN COMPARISON: <Comparisons> FINDINGS: Lines: Biventricular pacemaker . Lungs: Pulmonary vascular congestion and prominence of the pulmonary. Pleural: No significant pleural effusions or pneumothorax. Cardiac: Cardiomegaly. Mediastinum: Within normal limits. Bones: No acute fractures. Other: None IMPRESSION: Mild interstitial edema suspected. No consolidative pneumonia. Conclusions/Impression: ESRD on HD -HD TIW TTS -Acute HD today Hyponatremia -HD TIW HTN with CKD/ CHF -Hold antihypertensives Diastolic CHF, chronic -Low sodium diet -HD with UF DM II with CKD, Polyneuropathy and Hyperglycemia -RISS -Restart Gabapentin prn Moderate malnutrition/ Hypoalbuminemia Decreased functional ability -Continue Nepro -PT as tolerated Anemia in CKD Iron Deficiency 6% -Monitor H&H -Consider IV iron CKD MBD PTH 455 -Continue Ergo
== END 2022-09-20 17:00 | disposition home or self-care (01) ==
LOC: ER 16:37 → ERHOLD 18:50 → 2ND 21:34
PROVIDERS: ADMIT Hospitalist; ATTEND Hospitalist
DX: R07.9 Chest pain, unspecified (principal); N18.6 End stage renal disease; I50.9 Heart failure, unspecified; I25.10 Atherosclerotic heart disease of native coronary artery without angina pectoris; I10 Essential (primary) hypertension; G47.33 Obstructive sleep apnea (adult) (pediatric); M06.9 Rheumatoid arthritis, unspecified; E87.1 Hypo-osmolality and hyponatremia; E11.42 Type 2 diabetes mellitus with diabetic polyneuropathy; E11.65 Type 2 diabetes mellitus with hyperglycemia; E88.09 Other disorders of plasma-protein metabolism, not elsewhere classified; E87.70 Fluid overload, unspecified; E44.0 Moderate protein-calorie malnutrition; D63.1 Anemia in chronic kidney disease; Z99.2 Dependence on renal dialysis; Z68.26 Body mass index [BMI] 26.0-26.9, adult; Z91.158 Patient's noncompliance with renal dialysis for other reason; Z79.4 Long term (current) use of insulin
CPT/HCPCS: 93005; 85025 ×3; 80048 ×3; 36415 ×2; 83735; 84100; 85610; 82947 ×8; 85379; 80076; 84550; 84443; 83036; 84484 ×3; 86704; 82533; 83880; 87340; 86706; 71045; 90935; 93970; 94640; 78582; 96374; 99285; U0003; J1815; Q5106; J1940 ×2; J7613; J7644; J1644; A9558; A9540; G0378 ×5; J0696; J7050

== ENCOUNTER 2022-09-27 12:26 | Emergency (ER) | payer OTHER ==
--- OUTSIDE RECORDS SUMMARY | 2022-09-27 12:36 | XMS REPORT | Continuity of Care Document ---
:1950 Author Organization [facility] t Address [address] [place] [address] Care Team Providers Name Role Phone Pcp, Patient Does Not Have A Primary Care Physician [phone] Greg Fuentes Attending Clinician Unavailable Doctor Unassigned, [place] Attending Clinician Unavailable Luc Alvarez Attending Clinician Alannah Renner MD Attending Clinician Annalee Bey MD Attending Clinician Mauro Mendoza MD Attending Clinician ANNALEE BEY Attending Clinician Unavailable ALANNAH RENNER Attending Clinician Unavailable Derian HOLLIDAY, Trinidad Reza Attending Clinician Corrine Osuna MD Attending Clinician Natasha HOLLIDAY, Edwin Toribio Attending Clinician [phone] John HOLLIDAY, Shanon Vidal Attending Clinician [phone] Tim HOLLIDAY, Tammy Thompson Attending Clinician Armen HOLLIDAY, Edwin Attending Clinician Scot HOLLIDAY, Tasneem Attending Clinician Savannah HOLLIDAY, Annalee Attending Clinician Amaury HOLLIDAY, Leodan Attending Clinician Ru HOLLIDAY, Josemanuel Attending Clinician Andre Navarro Attending Clinician Juan BETH, Grazyna Magana Attending Clinician Abbie HOLLIDAY, Joanna Attending Clinician Provider, Unknown Attending Clinician Unavailable Zulema Donlad DO Attending Clinician Michaela Attending Clinician Unavailable [...] Number Effective Date Expiration Date S gus [place]UST [id number] 2021 (NON-CONTRACTED) 00:00:[address] [facility] [id number] 2021 [facility] 00:00:00 [place] - [id number] [facility] Problems Condition Condition Condition Status Onset Resolution Last Treating Co mments Source Name Details Category Date Date Treatment Clinician Date Complicati Complicati Disease Active [facility] Me dical with with 00 Center dialysis dialysis catheter catheter Diarrhea Diarrhea Disease Active Metho di 4-28 st 00:00: Hospita 00 l Chronic Chronic Disease Active [facility] vomiting vomiting -24 st 00:00: Hospita 00 l Clostridiu Clostridiu [...] ethodi rosis of rosis of 3-28 [facility] [place] [facility] coronary coronary 00 l artery of artery of [place] heart heart without without angina angina pectoris [...] Primary Disease Active [facility] insomnia insomnia 08-16 00:00: Hospita 00 l ART ART Disease Active [facility] (obstructi (obstructi 08-16 ve sleep ve sleep 00:00: Hospit a apnea) apnea) 00 l CKD CKD Disease Active Univers (chronic (chronic 827 ity of kidney kidney 00:00: [place] disease) disease) 00 Medica l stage 4, stage 4, Branch GFR 15-29 GFR 15-29 ml/min ml/min Type 2 Type 2 Disease Active Overview: Univer s diabetes diabetes Formattin ity of mellitus mellitus g of this [place] as with with note Medical diabetic diabetic might be Bran ch nephropath nephropath different y y from the original. follows with Dr. Ngo in [place] Neuropathy Neuropathy Disease Active Overview : [facility] Formattin ity of g of this [place] note Medical might be Branch different from the original. in feet and legs Hyperchole Hyperchole Disease Active Overview : Univers steremia steremia Formattin ity of g of this [place] note Medical might be Branch different from the original. follows with Dr. Higuera HTN HTN Disease Active Overview: [facility] s (hypertens (hypertens Formattin ity of ion) ion) g of this [place] note Medical might be Branch different from the original. follows with Dr. Higuera Atrial Atrial Disease Active Overview: [facility] s fibrillati fibrillati Formattin ity of on on g of this [place] note Medical might be Branch different from the original. follows with Dr. Higuera Allergies, Adverse Reactions, Alerts Allergy Allergy Status Severity Reaction(s) Onset Inactive Treating Comm ents Source Name Type Date Date Clinician No Known DA Active U [facility] Allergie -17 Clear s 00:00: An 00 [facility] Hydrocod Propensi Active GI "not an Metho di one ty to Intolerance 06-02 allergy, st adverse 00:00: but it Hospita reaction 00 upsets my l s to stomach drug every time I take it" No Known DA Active U [facility] Allergie 01-30 Clear s 00:00: An 00 [facility] NO KNOWN Allergy Active [facility] NO KNOWN Drug Active Univers ALLERGIE Class ity of S [place] [facility] Family History Family Member Diagnosis Comments Start Date Stop Date Source Natural sister Breast cancer [facility] Natural sister Cancer [facility] Natural brother Cancer [facility] Natural brother Colon cancer [facility] Natural brother Lung cancer [facility] Maternal grandmother Brain cancer [facility] Maternal grandmother [facility] Natural mother Cancer [facility] Natural mother Uterine [facility] Social History Social Habit Start Date Stop Date Quantity Comments Source History [facility] Alcohol Std Drinks Hospit al Gender identity [facility] Sexual orientation [facility] History of Social 2022-07-28 2022-07-[address] function 00:00:00 00:00:00 Hospital Tobacco use and 2022-01-08 2022-01-[address] [facility] exposure 00:00:00 00:00:00 tobacco non-user Medical Center Alcohol intake 2021-09-14 2021-09-14 Current [facility] 00:00:00 00:00:00 non-drinker of Hospital alcohol (finding) History SDOH 2020-04-05 2020-04-05 1 [facility] Alcohol Frequency 00:00:00 00:00:00 Hospita l History SDOH 2020-04-05 2020-04-05 1 [facility] Alcohol Binge 00:00:00 00:00:00 Hospital Sex Assigned At [address] [address] [facility] 00:00:00 00:[facility]:00 [facility] Center Smoking Status Start Date Stop Date Source Never smoked tobacco [facility] Medications Ordered Filled Start Stop Current Ordering Indication Dosage Frequency Signature Comments Components Source Medication Medication Date Date Medication? Clinician (SIG) Name Name aspirin 81 Yes 81mg QD Take [address] MG chewable 8-30 by mouth Luke s tablet 16:49: daily. [address] apixaban Yes 2.5mg Q.5D Take 2.5 CHI [...] MG 16:49: mouth Medical tablet 03 nightly. Ronald aspirin 81 0 Yes 81mg QD Take [address] MG chewable 8-30 by mouth Luke s tablet 16:49: daily. [facility] 03 Ronald apixaban 0 Yes 2.5mg Q.5D Take 2.[address] (Eliquis) 8-30 mg by [facility] 2.5 mg Tab 16:49: mouth 2 Medi keira tablet 03 (two) Center times daily. pramipexole 2021-0 Yes 1mg QD Take [address] (MIRAPEX) 1 8-30 by mouth Luke s MG tablet 16:49: nightly. [address] semaglutide 2021-0 Yes .25mg Inject [facility] (Ozempic) 8-30 [...] MG 16:49: mouth Medical tablet 03 nightly. Ronald aspirin 81 0 Yes 81mg QD Take [address] MG chewable 8-30 by mouth Luke s tablet 16:49: daily. [address] apixaban 2021-0 Yes 2.5mg Q.5D Take 2.[address] (Eliquis) 8-30 mg by [facility] 2.5 mg Tab 16:49: mouth 2 Medi keira tablet 03 (two) Center times daily. pramipexole 2021-0 Yes 1mg QD Take [address] (MIRAPEX) 1 8-30 by mouth Luke s MG tablet 16:49: nightly. [address] semaglutide 0 Yes .25mg Inject [facility] (Ozempic) 8-30 0.25 mg [facility]ukes 0.25 mg or 16:49: subcutaneo M edical 0.5 mg(2 03 usly every Cente r mg/1.5 mL) 7 days PnIj Every Monday . pantoprazol 2-0 Yes 40mg QD Take [address] e 8-30 by mouth [facility]ukes (PROTONIX) 16:49: daily. Medic al 40 MG 03 Center tablet traZODone 2021-0 Yes 100mg QD Take [address] (DESYREL) 8-30 mg by [facility] 100 MG 16:49: mouth Medical tablet 03 nightly. Ronald aspirin 81 2022-0 Yes 81mg QD Take [address] MG chewable 8-30 by mouth Luke s tablet 16:49: daily. [address] apixaban 2021-0 Yes 2.5mg Q.5D Take 2.[address] (Eliquis) 8-30 mg by [facility] 2.5 mg Tab 16:49: mouth 2 Medi keira tablet 03 (two) Center times daily. pramipexole 2021-0 Yes 1mg QD Take [address] (MIRAPEX) 1 8-30 by mouth Luke s MG tablet 16:49: nightly. [address] semaglutide 0 Yes .25mg Inject [facility] (Ozempic) 8-30 0.25 mg [facility] 0.25 mg or 16:49: subcutaneo M edical 0.5 mg(2 03 usly every Cente r mg/1.5 mL) 7 days PnIj Every Monday . pantoprazol 0 Yes 40mg QD Take [address] e 8-30 by mouth [facility]ukes (PROTONIX) 16:49: daily. Medic al [address] [place] [address] tablet traZODone 0 Yes 100mg QD Take [address] (DESYREL) 8-30 mg by [facility] 100 MG 16:49: mouth Medical tablet 03 nightly. Ronald aspirin 81 2021-0 Yes 81mg QD Take [address] MG chewable 8-30 by mouth Luke s tablet 16:49: daily. [address] apixaban 0 Yes 2.5mg Q.5D Take 2.[address] (Eliquis) 8-30 mg by [facility] 2.5 mg Tab 16:49: mouth 2 Medi keira tablet 03 (two) Center times daily. pramipexole 2021-0 Yes 1mg QD Take [address] (MIRAPEX) 1 8-30 by mouth Luke s MG tablet 16:49: nightly. [address] semaglutide 0 Yes .25mg Inject CHI [...] MG 16:49: mouth Medical tablet 03 nightly. Ronald hydrALAZINE 2021- No 25mg Q.[id number] Take [address] (APRESOLINE 8-30 08-30 [id number] by mouth 3 [facility] ) 25 MG 11:55: 00:00 3D (three) Medica l tablet 27 :00 times Center daily. budesonide 0 2022- No 3mg QD Take [address] (ENTOCORT 8-30 08-30 by mouth [facility] EC) 3 mg [...] :00 daily. Center hydrALAZINE 2021- No 25mg Q.[id number] Take [address] (APRESOLINE 01-18- [id number] by mouth 3 [facility] ) 25 MG [...] 00:00 subcutaneo Me dical SEMGLEE) 27 :00 [facility] Center 100 unit/mL nightly injection Use [...] .25ug QD Take 0.[address] (ROCALTROL) 01-18- mcg by [facility]ukes 0.25 MCG 11:55: 00:00 mouth Medical capsule 27 :00 daily. Center hydrALAZINE 2021- No 25mg Q.[id number] Take [address] (APRESOLINE 01-18 [id number] by mouth 3 [facility] ) 25 MG [...] 00:00 subcutaneo Medic al (NovoLOG) 27 :00 [facility] 3 Center 100 unit/mL (three) (3 mL) InPn times daily before meals. calcitrioL 2021- No .25ug QD Take 0.[address] (ROCALTROL) 01-18-30 mcg by [facility]ukes 0.25 MCG 11:55: 00:00 mouth Medical capsule 27 :00 daily. Center hydrALAZINE 2021- No 25mg Q.[id number] Take [address] (APRESOLINE 01-18-30 [id number] by mouth 3 [facility] ) 25 MG [...] :00 daily. Center hydrALAZINE 2021- No 25mg Q.[id number] Take [address] (APRESOLINE 01-18 [id number] by mouth 3 [facility] ) 25 MG [...] QD Inject [address] glargine 01-18 Units [facility] (LANTUS, 11:55: 00:00 subcutaneo Me dical SEMGLEE) 27 :00 [facility] Center 100 unit/mL nightly injection Use [...] :00 daily. Center hydrALAZINE 2021- No 25mg Q.[id number] Take [address] (APRESOLINE 01-18 [id number] by mouth 3 [facility] ) 25 MG [...] 40U QD Inject [address] glargine - 08-30 Units [facility] (LANTUS, 11:55: 00:00 subcutaneo [...] Take [address] -acetaminop 8-18 02- tablet by [place] pablo (NORCO 00:00: 23:59 mouth Medic al 5-325) 00 :00 every 6 Center 5-325 mg (six) per tablet hours as needed for Pain (Right knee septic joint) for up to 30 days. Max Daily Amount: 4 tablets HYDROcodone 2021- No 1{tbl} Take [address] -acetaminop 8-30 - tablet by [place] pablo (NORCO 00:00: 23:59 [...] joint). Max Daily Amount: 4 tablets HYDROcodone 2021-0 2021- No 1{tbl} Take [address] -acetaminop 8-30 08-30 tablet by [place] pablo (NORCO 00:00: 00:00 mouth Medic al 5-325) 00 :00 every 6 Center 5-325 mg (six) per tablet hours as needed for Pain (Right knee septic joint). Max Daily Amount: 4 tablets HYDROcodone 2021-0 2021- No 1{tbl} Take 1 C HI [...] joint). Max Daily Amount: 4 tablets HYDROcodone 2021-0 2021- No 1{tbl} Take [address] -acetaminop 8-30 08-30 tablet by [place] p[place] (NORCO 00:00: 00:00 mouth Medic al 5-325) 00 :00 every 6 Center 5-325 mg (six) per tablet hours as needed for Pain (Right knee septic joint). Max Daily Amount: 4 tablets HYDROcodone 2021-0 2021- No 1{tbl} Take [address] -acetaminop 8-30 08-30 tablet by [place] pablo (NORCO 00:00: 00:00 mouth Medic al 5-325) 00 :00 every 6 Center 5-325 mg (six) per tablet hours as needed for Pain (Right knee septic joint). Max Daily Amount: 4 tablets vancomycin 2021- 202- No 125mg Q2D Take 1 Met [facility] (Vancocin) 10-11 06-[address] 125 MG 00:00: 04:59 (125 [...] 125mg Q2D Take 1 [facility] (Vancocin) 10-11- capsule st 125 MG 00:00: 04:59 (125 [...] QD Take 1 Met [facility] (Vancocin) 5-16 -[address] 125 MG 00:00: 04:59 (125 mg Hospita capsule 00 :00 total) by l mouth daily for 7 doses. vancomycin 2021- No 125mg QD Take 1 Met [facility]odi (Vancocin) 5-16 05-[address] 125 MG 00:00: 04:59 (125 mg Hospita capsule 00 :00 total) by l mouth daily for 7 doses. vancomycin 2021- No 125mg Q.5D Take 1 [facility] (Vancocin) 5-08 05-[address] 125 MG 00:00: 04:59 (125 mg Hospita capsule 00 :00 total) by l mouth 2 (two) times a day for 14 doses. vancomycin 2021- No 125mg Q.5D Take 1 Met [facility] (Vancocin) 09-26 05-[address] 125 MG 00:00: 04:59 (125 mg Hospita capsule 00 :00 total) by l mouth 2 (two) times a day for 14 doses. vancomycin 2021- No 125mg Q.5D Take 1 Met [facility] (Vancocin) 5 05-[address] 125 MG 00:00: 04:59 (125 mg Hospita capsule 00 :00 total) by l mouth 2 (two) times a day for 14 doses. vancomycin 2021- No 125mg Q.5D Take 1 Met [facility]odi (Vancocin) 5 05-[address] 125 MG 00:00: 04:59 (125 mg Hospita capsule 00 :00 total) by l mouth 2 (two) times a day for 14 doses. vancomycin 2021- No 125mg Q.[id number] Take 1 [facility] (Vancocin) 09-24-[id number] 125 MG 00:00: 04:59 3D (125 mg Hospita capsule 00 :00 total) by l mouth 3 (three) times a day for 8 doses. vancomycin 2021- No 125mg Q.[id number] Take 1 [facility] (Vancocin) 09-24-[id number] 125 MG 00:00: 04:59 3D (125 mg Hospita capsule 00 :00 total) by l mouth 3 (three) times a day for 8 doses. vancomycin 2021- No 125mg Q.[id number] Take 1 [facility] (Vancocin) 09-24-[id number] 125 MG 00:00: 04:59 3D (125 mg Hospita capsule 00 :00 total) by l mouth 3 (three) times a day for 8 doses. vancomycin 2021- No 125mg Q.[id number] Take 1 [facility] (Vancocin) 09-24-[id number] 125 MG 00:00: 04:59 3D [...] 03 :00 times a l day. metoprolol 2021-2021- No 100mg Q.5D Take [...] 03 :00 times a l day. BUMETanide 2021-2021- No 1mg QD Take 1 mg M ethodi (BUMEX) 1 4- 04-[address] MG tablet 18:55: 00:00 daily. Hospi ta 55 :00 l BUMETanide 2021-0 2021- No 1mg QD Take 1 mg M ethodi (BUMEX) 1 - 04-[address] MG tablet 18:55: [...] .25ug QD Take 0.25 M ethodi (ROCALTROL) -[address] 0.25 MCG 18:55: mouth [...] MG 24 hr 51 l tablet escitalopra 2022-0 Yes 10mg QD Take 10 mg Methodi m (LEXAPRO) 4-[address] 10 MG 18:55: daily. Hospita tablet 51 l calcitrioL Yes .25ug QD Take 0.25 M ethodi (ROCALTROL) 4-[address] 0.25 MCG 18:55: mouth Hospita capsule 51 daily. l hydrALAZINE 2021- No 25mg Q.[id number] Take 1 [facility] (APRESOLINE 09-16- [id number] tablet (25 st ) 25 MG 00:00: [...] for 30 days. hydrALAZINE 2021- No 25mg Q.[id number] Take 1 [facility] (APRESOLINE 09-16- [id number] tablet (25 st ) 25 MG 00:00: [...] Q.5D Take 1 Meth ramiro (COREG) 25 4- 05-29 tablet (25 st MG tablet 00:00: 04:59 mg total) Ho spita 00 :00 by mouth 2 l (two) times a day for 30 days. pantoprazol 2021-2021- No 40mg QD Take 1 Met hodi e 4-16 10-29 tablet (40 st (Protonix) 00:00: 04:59 mg total) H ospita 40 MG EC 00 :00 by mouth l tablet daily for 30 days. hydrALAZINE 2021- No 25mg Q.[id number] Take 1 [facility] (APRESOLINE 4-28 -29 [id number] tablet (25 st ) 25 MG 00:00: [...] for 30 days. hydrALAZINE 2021- No 25mg Q.[id number] Take 1 [facility] (APRESOLINE 4-28 05-29 [id number] tablet (25 st ) 25 MG 00:00: 04:59 3D mg total) [facility] tablet 00 :00 by mouth l every 8 (eight) hours for 30 days. aspirin 81 2021- No 81mg QD Chew 1 Meth ramiro mg chewable 09-16-29 tablet (81 s t tablet 00:00: 04:59 [...] Take 1 mg M ethodi (REQUIP) 1 08-[address] MG tablet 19:46: 00:00 nightly. Hos keo 04 :00 l clonIDINE 2021- No .1mg QD Take 0.1 Met hodi (CATAPRES) 08-14-[address] 0.1 MG 19:46: 00:00 mouth Hospita tablet 04 :00 nightly. l insulin 2021- No Inject Methodi LISPRO 08-[address] PROTAMIN-LI 19:46: 00:00 skin. [...] Take 1 mg M ethodi (REQUIP) 1 08-[address] MG tablet 19:46: 00:00 nightly. Hos keo 04 :00 l aspirin 81 2021- No 81mg QD Chew 1 Meth ramiro mg chewable 08-14- tablet (81 s t tablet 00:00: 00:00 mg total) Hospi ta 00 :00 daily for l 30 days. aspirin 81 2021- No 81mg QD Chew 1 Meth ramiro mg chewable 3-26 04-28 tablet (81 s t tablet 00:00: 00:00 mg total) Hospi ta 00 :00 daily for l 30 days. metoprolol 2021-2021- No 100mg Q.5D Take 100 M ethodi tartrate 3-25 03-[address] (LOPRESSOR) 19:46: 00:00 mouth 2 Ho spita 100 mg 31 :00 (two) l tablet times a day. hydrALAZINE 2021-2021- No 100mg Q.[id number] Take 100 [facility]i (APRESOLINE 3-25 03-[id number] ) 100 MG 19:46: [...] times a day. hydrALAZINE 2021-2021- No 100mg Q.[id number] Take 100 [facility] (APRESOLINE 3-25 03-[id number] ) 100 MG 19:46: [...] for 30 days. hydrALAZINE 2021- No 50mg Q.[id number] Take 1 [facility] (APRESOLINE 3-25 -28 [id number] tablet (50 st ) 50 MG 00:00: 00:00 3D mg total) [facility] tablet 00 :00 by mouth l every 8 (eight) hours for 30 days. insulin 2021-2021- No 12U QD Inject Methodi [...] for 30 days. hydrALAZINE 2021-2021- No 50mg Q.[id number] Take 1 [facility] (APRESOLINE 08-13 [id number] tablet (50 st ) 50 MG 00:00: [...] daily with breakfast for 30 days. hydrALAZINE 2021-0 2021- No 100mg Q.5D Take 1 Me [...] morning for 30 days. levalbutero 2021- No [id number] 1.25mg Q8H Take 3 mL Methodi l [...] for 30 days. insulin 2021- No 5U Q.[id number] Inject M ethodi LISPRO 06-04 [id number] 0.05 mL (5 st (ADMELOG) 00:00: 05:59 3D Units Hospit a 100 unit/mL 00 :00 total) l subcutaneou under the s vial skin 3 (three) times a day with meals for 30 days. nystatin 2021- Apply Methodi (MYCOSTATIN 1-14 02-[address] ) 100,000 00:00: 05:59 as needed Ho spita unit/gram 00 :00 (rash) for l powder up to 30 days. budesonide 2020-05 Yes 3mg Q.[id number] Take 3 mg [facility] EC 2-12 [id number] by mouth 3 st (ENTOCORT 00:00: 3D (three) Hospi ta EC) 3 mg 24 00 times a l hr capsule day. budesonide 2020-05 Yes 3mg Q.[id number] Take 3 mg [facility] EC 2-12 [id number] by mouth 3 st (ENTOCORT 00:00: 3D (three) Hospi ta EC) 3 mg 24 00 times a l hr capsule day. budesonide 2020-05 Yes 3mg Q.[id number] Take 3 mg [facility] EC 2-12 [id number] by mouth 3 st (ENTOCORT 00:00: 3D (three) Hospi ta EC) 3 mg 24 00 times a l hr capsule day. budesonide 2020-05 Yes 3mg Q.[id number] Take 3 mg [facility] EC 2-12 [id number] by mouth 3 st (ENTOCORT 00:00: 3D [...] Under breast and between legs allopurinol Yes [id number] 150mg Take 150 Univers (ZYLOPRIM) 1-04 mg by ity of 100 mg 15:21: mouth [place] tablet 32 daily. Medical Branch CALCIUM Yes .25mg Take 0.25 Univ ers CARBONATE/V 1-04 mg by ity of ITAMIN D3 15:21: mouth [place] (VITAMIN 32 daily. Medical D-3 ORAL) Branch allopurinol Yes [id number] 150mg Take 150 Univers (ZYLOPRIM) 1-04 mg by ity of 100 mg 15:21: mouth [place] tablet 32 daily. Medical Branch CALCIUM Yes .25mg Take 0.25 Univ ers CARBONATE/V 1-04 mg by ity of ITAMIN D3 15:21: mouth [place] (VITAMIN 32 daily. Medical D-3 ORAL) Branch allopurinol Yes [id number] 150mg Take 150 Univers (ZYLOPRIM) 1-04 mg by ity of 100 mg 15:21: mouth [place] tablet 32 daily. Medical Branch CALCIUM Yes .25mg Take 0.25 Univ ers CARBONATE/V 1-04 mg by ity of ITAMIN D3 15:21: mouth [place] (VITAMIN 32 daily. Medical D-3 ORAL) Branch allopurinol Yes [id number] 150mg Take 150 Univers (ZYLOPRIM) 1-04 mg by ity of 100 mg 15:21: mouth [place] tablet 32 daily. Medical Branch CALCIUM Yes .25mg Take 0.25 Univ ers CARBONATE/V 1-04 mg by ity of ITAMIN D3 15:21: mouth [place] (VITAMIN 32 daily. Medical D-3 ORAL) Branch allopurinol Yes [id number] 150mg Take 150 Univers (ZYLOPRIM) 1-04 mg by ity of 100 mg 15:21: mouth [place] tablet 32 daily. Medical Branch CALCIUM Yes .25mg Take 0.25 Univ ers CARBONATE/V 1-04 mg by ity of ITAMIN D3 15:21: mouth [place] (VITAMIN 32 daily. Medical D-3 ORAL) Branch allopurinol Yes [id number] 150mg Take 150 Univers (ZYLOPRIM) 1-04 mg by ity of 100 mg 15:21: mouth [place] tablet 32 daily. Medical Branch allopurinol Yes [id number] 150mg Take 150 Univers (ZYLOPRIM) 1-04 mg by ity of 100 mg 15:21: mouth [place] tablet 32 daily. Medical Branch CALCIUM Yes .25mg Take 0.25 Univ ers CARBONATE/V 1-04 mg by ity of ITAMIN D3 15:21: mouth [place] (VITAMIN 32 daily. Medical D-3 ORAL) Branch allopurinol Yes [id number] 150mg Take 150 Univers (ZYLOPRIM) 1-04 mg [...] daily. Medical D-3 ORAL) Branch allopurinol Yes [id number] 150mg Take 150 Univers (ZYLOPRIM) 1-04 mg by ity of 100 mg 15:21: mouth [place] tablet 32 daily. Medical Branch CALCIUM Yes .25mg Take 0.25 Univ ers CARBONATE/V 1-04 mg by ity of ITAMIN D3 15:21: mouth [place] (VITAMIN 32 daily. Medical D-3 ORAL) Branch allopurinol Yes [id number] 150mg Take 150 Univers (ZYLOPRIM) 1-04 mg by ity of 100 mg 15:21: mouth [place] tablet 32 daily. Medical Branch CALCIUM Yes .25mg Take 0.25 Univ ers CARBONATE/V 1-04 mg by ity of ITAMIN D3 15:21: mouth [place] (VITAMIN 32 daily. Medical D-3 ORAL) Branch allopurinol Yes [id number] 150mg Take 150 Univers (ZYLOPRIM) 1-04 mg by ity of 100 mg 15:21: mouth [place] tablet 32 daily. Medical Branch CALCIUM Yes .25mg Take 0.25 Univ ers CARBONATE/V 1-04 mg by ity of ITAMIN D3 15:21: mouth [place] (VITAMIN 32 daily. Medical D-3 ORAL) Branch furosemide Yes [id number] 40mg Take 40 mg Univers (LASIX) 20 1-04 by mouth ity o f mg tablet 15:19: daily. [place] 41 Medical Branch furosemide Yes [id number] 40mg Take 40 mg Univers (LASIX) 20 1-04 by mouth ity o f mg tablet 15:19: daily. [address] furosemide Yes [id number] 40mg Take 40 mg Univers (LASIX) 20 1-04 by mouth ity o f mg tablet 15:19: daily. [address] furosemide Yes [id number] 40mg Take 40 mg Univers (LASIX) 20 1-04 by mouth ity o f mg tablet 15:19: daily. [address] furosemide Yes [id number] 40mg Take 40 mg Univers (LASIX) 20 1-04 by mouth ity o f mg tablet 15:19: daily. [address] furosemide Yes [id number] 40mg Take 40 mg Univers (LASIX) 20 1-04 by mouth ity o f mg tablet 15:19: daily. [address] furosemide Yes [id number] 40mg Take 40 mg Univers (LASIX) 20 1-04 by mouth ity o f mg tablet 15:19: daily. [address] furosemide Yes [id number] 40mg Take 40 mg Univers (LASIX) 20 1-04 by mouth ity o f mg tablet 15:19: daily. [address] furosemide Yes [id number] 40mg Take 40 mg Univers (LASIX) 20 1-04 by mouth ity o f mg tablet 15:19: daily. [address] furosemide Yes [id number] 40mg Take 40 mg Univers (LASIX) 20 1-04 by mouth ity o f mg tablet 15:19: daily. [address] furosemide Yes [id number] 40mg Take 40 mg Univers (LASIX) 20 1-04 by mouth ity o f mg tablet 15:19: daily. [address] Golimumab 2017-0 Yes [id number] inject U nivers (SIMPONI) 1-04 under the ity o f 50 mg/0.5 15:18: skin. [place] mL 20 Infusion Medical injection every 8 Branch weeks for rheumatoid arthritis. Golimumab 2017-0 Yes [id number] inject U nivers (SIMPONI) 1-04 under the ity o f 50 mg/0.5 15:18: skin. [place] mL 20 Infusion Medical injection every 8 Branch weeks for rheumatoid arthritis. Golimumab 2017- Yes [id number] inject U nivers (SIMPONI) 1-04 under the ity o f 50 mg/0.5 15:18: skin. [place] mL 20 Infusion Medical injection every 8 Branch weeks for rheumatoid arthritis. Golimumab Yes [id number] inject U nivers (SIMPONI) 1-04 under the ity o f 50 mg/0.5 15:18: skin. [place] mL 20 Infusion Medical injection every 8 Branch weeks for rheumatoid arthritis. Golimumab Yes [id number] inject U nivers (SIMPONI) 1-04 under the ity o f 50 mg/0.5 15:18: skin. [place] mL 20 Infusion Medical injection every 8 Branch weeks for rheumatoid arthritis. Golimumab Yes [id number] inject U nivers (SIMPONI) 1-04 under the ity o f 50 mg/0.5 15:18: skin. [place] mL 20 Infusion Medical injection every 8 Branch weeks for rheumatoid arthritis. Golimumab Yes [id number] inject U nivers (SIMPONI) 1-04 under the ity o f 50 mg/0.5 15:18: skin. [place] mL 20 Infusion Medical injection every 8 Branch weeks for rheumatoid arthritis. Golimumab 2017 Yes [id number] inject U nivers (SIMPONI) 1-04 under the ity o f 50 mg/0.5 15:18: skin. [place] mL 20 Infusion Medical injection every 8 Branch weeks for rheumatoid arthritis. Golimumab Yes [id number] inject U nivers (SIMPONI) 1-04 under the ity o f 50 mg/0.5 15:18: skin. [place] mL 20 Infusion Medical injection every 8 Branch weeks for rheumatoid arthritis. Golimumab 2017- Yes [id number] inject U nivers (SIMPONI) 1-04 under the ity o f 50 mg/0.5 15:18: skin. [place] mL 20 Infusion Medical injection every 8 Branch weeks for rheumatoid arthritis. Golimumab 2017- Yes [id number] inject U nivers (SIMPONI) 1-04 under the ity o f 50 mg/0.5 15:18: skin. [place] mL 20 Infusion Medical injection every 8 Branch weeks for rheumatoid arthritis. linagliptin 2017- Yes [id number] Take by Univers (CoreworxNTA) 1-04 mouth. ity of 5 mg tablet [...] Branch daily with meals. linagliptin 2016-0 Yes [id number] Take by Univers (CoreworxNTA) 1-04 mouth. ity of 5 mg tablet [...] Branch daily with meals. linagliptin 2017-0 Yes [id number] Take by Univers (CoreworxNTA) 1-04 mouth. ity of 5 mg tablet 14:33: Medical Branch linagliptin 2017-0 Yes [id number] Take by Univers (TRADJENTA) 1-04 mouth. ity of 5 mg tablet 14:33: [place] [facility] apixaban 2017-0 Yes 5mg Take 5 mg Univ ers (ELIQUIS) 1-04 by mouth 2 ity of 2.5 mg 14:33: (two) [place] tablet 03 times Medical daily. Branch hydralAZINE 2017 Yes 50mg Take 50 mg Univers (APRESOLINE [...] 2 [place] tablet 03 (two) Medical times [place] daily with meals. linagliptin 2017- Yes [id number] Take by Univers (TRADShazam EntertainmentNTA) 1-04 mouth. ity of 5 mg tablet [...] 2 [place] tablet 03 (two) Medical times [place] daily with meals. linagliptin 2017-0 Yes [id number] Take by Univers (TRADJENTA) 1-04 mouth. ity [...] Branch daily with meals. linagliptin 2017-0 Yes [id number] Take by Univers (TRADJENTA) 1-04 mouth. ity [...] 2 [place] tablet 03 (two) Medical times [place] daily with meals. linagliptin 2017-0 Yes [id number] Take by Univers (TRADJENTA) 1-04 mouth. ity [...] 2 [place] tablet 03 (two) Medical times [place] daily with meals. linagliptin 2017-0 Yes [id number] Take by Univers (TRADJENTA) 1-04 mouth. ity [...] Branch daily with meals. linagliptin 2017-0 Yes [id number] Take by Univers (TRADJENTA) 1-04 mouth. ity [...] 24 hr 03 Medical tablet Branch carvedilol 2017- Yes 12.5mg Take 12.5 Univers (COREG) 1-04 mg by ity of 12.5 mg 14:33: mouth 2 [place] tablet 03 (two) Medical times Branch daily with meals. linagliptin 2017-0 Yes [id number] Take by Univers (TRADJENTA) 1-04 mouth. ity of 5 mg tablet 14:33: [place] [facility] apixaban 2017-0 Yes 5mg Take [...] Medical times Branch daily with meals. pramipexole 2017-0 Yes [id number] 2mg Take 2 Univers (MIRAPEX) 1 1-04 tablets by [place] [facility] pramipexole 2016-0 Yes [id number] 2mg Take 2 Univers (MIRAPEX) 1 1-04 tablets by [place] [address] [facility] pramipexole Yes [id number] 2mg Take 2 Univers (MIRAPEX) 1 1-04 tablets by [place] mg tablet [place] [address] [facility] pramipexole Yes [id number] 2mg Take 2 Univers (MIRAPEX) 1 1-04 tablets by [place] y of mg tablet [place]: [place] bed[place] [facility] pramipexole Yes [id number] 2mg Take 2 [facility] (MIRAPEX) 1 1-04 tablets by [place] y of mg tablet 00:[place]: [place] bed[place]. [facility] pramipexole Yes [id number] 2mg Take 2 [facility] (MIRAPEX) 1 1-04 tablets by [place] y of mg tablet 00:[place]: [place] bed[place]. [facility] pramipexole Yes [id number] 2mg Take 2 [facility] (MIRAPEX) 1 1-04 tablets by it y of mg tablet 00:00: [place] bed[place]. [facility] pramipexole Yes [id number] 2mg Take 2 Univers (MIRAPEX) 1 1-04 tablets by it y of mg tablet 00:00: [place] bedtime. [facility] pramipexole Yes [id number] 2mg Take 2 Univers (MIRAPEX) 1 1-04 tablets by it y of mg tablet 00:00: [place] bedtime. [facility] pramipexole Yes [id number] 2mg Take 2 [facility] (MIRAPEX) 1 1-04 tablets by it y of mg tablet 00:00: [place] bedtime. [facility] pramipexole Yes [id number] 2mg Take 2 Univers (MIRAPEX) 1 1-04 [...] Medical times Branch daily. glipiZIDE 2015-05 Yes [id number] 10mg Take 1 Un ke[place] XL 1-16 tablet by ity of (GLUCOTROL 00:00: mouth [place] XL) 10 mg 00 (two) Medical 24 hr times Branch tablet daily. glipiZIDE 2015-05 Yes [id number] 10mg Take 1 [place] XL 1-16 tablet by ity of (GLUCOTROL 00:00: mouth [place] XL) 10 mg 00 (two) Medical 24 hr times Branch tablet daily. glipiZIDE 2015-05 Yes [id number] 10mg Take 1 [facility] [place] XL 1-16 tablet by [facility]y of (GLUCOTROL 00:00: mouth 2 [place] XL) 10 mg 00 (two) Medical 24 hr times Branch tablet daily. glipiZIDE 2015-05 Yes [id number] 10mg Take 1 [place] XL 1-16 tablet by ity of (GLUCOTROL 00:00: mouth 2 [place] XL) 10 mg 00 (two) Medical 24 hr times Branch tablet daily. glipiZIDE 2015-05 Yes [id number] 10mg Take 1 [place] XL 1-16 tablet by [facility]y of (GLUCOTROL 00:00: mouth [place] XL) 10 mg 00 (two) Medical 24 hr times Branch tablet daily. glipiZIDE 2015-05 Yes [id number] 10mg Take 1 [place] XL 1-16 tablet by ity of (GLUCOTROL 00:00: mouth 2 [place] XL) 10 mg 00 (two) Medical 24 hr times Branch tablet daily. glipiZIDE 2015-05 Yes [id number] 10mg Take 1 [place] XL 1-16 tablet by ity of (GLUCOTROL 00:00: mouth [place] XL) 10 mg 00 (two) Medical 24 hr times Branch tablet daily. glipiZIDE 2015-05 Yes [id number] 10mg Take 1 [place] XL 1-16 tablet by ity of (GLUCOTROL 00:00: mouth 2 [place] XL) 10 mg 00 (two) Medical 24 hr times Branch tablet daily. glipiZIDE 2015-05 Yes [id number] 10mg Take 1 [place] XL 1-16 tablet by ity of (GLUCOTROL 00:00: mouth [place] XL) 10 mg 00 (two) Medical 24 hr times Branch tablet daily. glipiZIDE 2015-05 Yes [id number] 10mg Take 1 [place] XL 1-16 tablet by ity of (GLUCOTROL 00:00: mouth 2 [place] XL) 10 mg 00 (two) Medical 24 hr times Branch tablet daily. glipiZIDE 2015-05 Yes [id number] 10mg Take 1 [place] XL 1-16 tablet by ity of (GLUCOTROL 00:00: mouth 2 [place] XL) 10 mg 00 (two) Medical 24 hr times Branch tablet daily. atorvasta 2015-05 Yes [id number] 10mg Take 1 Univers n (LIPITOR) 1-02 tablet by ity of 10 mg 00:00: mouth at [place] tablet 00 bedtime. Medical Branch atorvastati 2015-05 Yes [id number] 10mg Take 1 Univers n (LIPITOR) 1-02 tablet by ity of 10 mg 00:00: mouth at [place] tablet 00 bedtime. Medical Branch atorvastati 2015-05 Yes [id number] 10mg Take 1 Univers n (LIPITOR) 1-02 tablet by ity of 10 mg 00:00: mouth at [place] tablet 00 bedtime. Medical Branch atorvastati 2015-05 Yes [id number] 10mg Take 1 Univers n (LIPITOR) 1-02 tablet by ity of 10 mg 00:00: mouth at [place] tablet 00 bedtime. Medical Branch atorvastati 2015-05 Yes [id number] 10mg Take 1 Univers n (LIPITOR) 1-02 tablet by ity of 10 mg 00:00: mouth at [place] tablet 00 bedtime. Medical Branch atorvastati 2015-05 Yes [id number] 10mg Take 1 Univers n (LIPITOR) 1-02 tablet by ity of 10 mg 00:00: mouth at [place] tablet 00 bedtime. Medical Branch atorvastati 2015-05 Yes [id number] 10mg Take 1 Univers n (LIPITOR) 1-02 tablet by ity of 10 mg 00:00: mouth at [place] tablet 00 bedtime. Medical Branch atorvastati 2015-05 Yes [id number] 10mg Take 1 Univers n (LIPITOR) 1-02 tablet by ity of 10 mg 00:00: mouth at [place] tablet 00 bedtime. Medical Branch atorvastati 2015-05 Yes [id number] 10mg Take 1 Univers n (LIPITOR) 1-02 tablet by ity of 10 mg 00:00: mouth at [place] tablet 00 bedtime. Medical Branch atorvastati 2015-05 Yes [id number] 10mg Take 1 Univers n (LIPITOR) 1-02 tablet by ity of 10 mg 00:00: mouth at [place] tablet 00 bedtime. Medical Branch atorvasta 2015-05 Yes [id number] 10mg Take 1 Univers n (LIPITOR) 1-02 tablet by ity of 10 mg 00:00: mouth at [place] tablet 00 bedtime. Medical Branch Immunizations Ordered Immunization Filled Immunization Date Status Commen ts Source Name Name PFIZER COVID-19 MRNA 2021-06-10 Completed [facility] VACCINATION 00:00:00 [facility] PFIZER COVID-19 MRNA 2021-06-10 Completed [facility] odist VACCINATION 00:00:00 [facility] PFIZER COVID-19 MRNA 2021-06-10 Completed Meth odist VACCINATION 00:00:00 [facility] PFIZER COVID-19 MRNA 2021-06-10 Completed Meth odist VACCINATION 00:00:00 [facility] PFIZER COVID-19 MRNA 2020-07-09 Completed Meth odist VACCINATION 00:00:00 [facility] PFIZER COVID-19 MRNA 2020-07-09 Completed Meth odist VACCINATION 00:00:00 [facility] PFIZER COVID-19 MRNA 2020-07-09 Completed Meth odist VACCINATION 00:00:00 [facility] PFIZER COVID-19 MRNA 2020-07-09 Completed Meth odist VACCINATION 00:00:00 [facility] PFIZER COVID-19 MRNA 2020-06-18 Completed Meth odist VACCINATION 00:00:00 [facility] PFIZER COVID-19 MRNA 2020-06-18 Completed Meth odist VACCINATION 00:00:00 [facility] PFIZER COVID-19 MRNA 2020-06-18 Completed Meth odist VACCINATION 00:00:00 [facility] PFIZER COVID-19 MRNA 2020-06-18 Completed [facility] VACCINATION 00:00:00 Hospital Pneumococcal 2020-04-29 Completed [facility] Polysaccharide 00:00:00 [facility] Zoster 2020-04-29 Completed [facility] 00:[facility]:00 [facility] Pneumococcal 2020-04-29 Completed [facility] Polysaccharide 00:00:00 [facility] Zoster 2020-04-29 Completed [facility] 00:00:00 [facility] Pneumococcal 2020-04-29 Completed [facility] Polysaccharide 00:00:00 Hospital Zoster 2020-04-29 Completed [facility] 00:00:00 Hospital Pneumococcal 2020-04-29 Completed [facility] Polysaccharide 00:00:00 Hospital Zoster 2020-04-29 Completed [facility] 00:[facility]:00 Hospital Pneumococcal 2019-05-13 Completed [facility] Conjugate 13-Valent 00:00:00 Hospi true Pneumococcal 2019-05-13 Completed [facility] Conjugate 13-Valent 00:00:00 Hospi true Pneumococcal 2019-05-13 Completed [facility] Conjugate 13-Valent 00:00:00 Hospi true Pneumococcal 2019-05-13 Completed [facility] Conjugate 13-Valent 00:00:00 Hospi true FLUCELVAX QUAD [...] Metho dist 00:00:00 Hospital Influenza, 2016-02-03 Completed [facility] Unspecified 00:00:00 Hospital Pneumococcal 2016-02-03 Completed [facility] Conjugate 13-Valent 00:00:00 Hospi true Tdap 2016-02-03 Completed [facility] 00:[facility]:00 [facility] Influenza, 2016-02-03 Completed [facility] Unspecified 00:00:00 Hospital Pneumococcal 2016-02-03 Completed [facility] Conjugate 13-Valent 00:00:00 Hospi true Tdap 2016-02-03 Completed [facility] 00:00:00 Hospital Influenza, 2016-02-03 Completed [facility] Unspecified 00:00:00 Hospital Pneumococcal 2016-02-03 Completed [facility] Conjugate 13-Valent 00:00:00 Hospi true Tdap 2016-02-03 Completed [facility] 00:00:00 Hospital Tdap 2016-02-03 Completed [facility] 00:00:00 Hospital Influenza, 2016-02-03 Completed [facility] Unspecified 00:00:00 Hospital Pneumococcal 2016-02-03 Completed [facility] Conjugate 13-Valent 00:00:[address] [facility] Influenza Virus 2016-02-03 Completed Universit y of Vaccine 00:00:00 [facility] Pneumococcal 13 2016-02-03 Completed Universit y of Conjugate, PCV13 00:00:[address] [facility] dical (Prevnar 13) Branch [facility] 2016-02-03 Completed University of 00:00:00 [facility] Influenza Virus 2016-02-03 Completed Universit y of Vaccine 00:00:00 [facility] Pneumococcal 13 2016-02-03 Completed Universit y of Conjugate, PCV13 00:00:[address] [facility] dical (Prevnar 13) Branch [facility] 2016-02-03 Completed University of 00:00:00 [facility] Influenza Virus 2016-02-03 Completed Universit y of Vaccine 00:00:00 [facility] Pneumococcal 13 2016-02-03 Completed Universit y of Conjugate, PCV13 00:00:[address] [facility] dical (Prevnar 13) Branch [facility] 2016-02-03 Completed University of 00:00:00 [facility] Influenza Virus 2016-02-03 Completed Universit y of Vaccine 00:00:00 [facility] Pneumococcal 13 2016-02-03 Completed Universit y of Conjugate, PCV13 00:00:[address] [facility] dical (Prevnar 13) Branch [facility] 2016-02-03 Completed University of 00:00:00 [facility] Influenza Virus 2016-02-03 Completed Universit y of Vaccine 00:00:00 [facility] Pneumococcal 13 2016-02-03 Completed Universit y of Conjugate, PCV13 00:00:[address] [facility] dical (Prevnar 13) Branch [facility] 2016-02-03 Completed University of 00:00:00 [facility] Influenza Virus 2016-02-03 Completed Universit y of Vaccine 00:00:00 [facility] Pneumococcal 13 2016-02-03 Completed Universit y of Conjugate, PCV13 00:00:[address] [facility] dical (Prevnar 13) Branch [facility] 2016-02-03 Completed University of 00:00:00 [facility] Influenza Virus 2016-02-03 Completed Universit y of Vaccine 00:00:00 [facility] Pneumococcal 13 2016-02-03 Completed Universit y of Conjugate, PCV13 00:00:[address] [facility] dical (Prevnar 13) Branch AP 2016-02-03 Completed University of 00:00:00 [facility] Influenza Virus 2016-02-03 Completed Universit y of Vaccine 00:00:00 [facility] Pneumococcal 13 2016-02-03 Completed Universit y of Conjugate, PCV13 00:00:[address] [facility] dical (Prevnar 13) Branch [facility] 2016-02-03 Completed University of 00:00:00 [facility] Influenza Virus 2016-02-03 Completed Universit y of Vaccine 00:00:00 [facility] Pneumococcal 13 2016-02-03 Completed Universit y of Conjugate, PCV13 00:00:[address] [facility] dical (Prevnar 13) Branch [facility] 2016-02-03 Completed University of 00:00:00 [facility] Influenza Virus 2016-02-03 Completed Universit y of Vaccine 00:00:00 [facility] Pneumococcal 13 2016-02-03 Completed Universit y of Conjugate, PCV13 00:00:[address] [facility] dical (Prevnar 13) Branch [facility] 2016-02-03 Completed University of 00:00:00 [facility] Influenza Virus 2016-02-03 Completed Universit y of Vaccine 00:00:00 [facility] Pneumococcal 13 2016-02-03 Completed Universit y of Conjugate, PCV13 00:00:[address] [facility] dical (Prevnar 13) Branch [facility] 2016-02-03 Completed University of 00:00:00 [facility] Influenza, 2015-01-05 Completed [facility] Unspecified 00:00:00 Hospital Pneumococcal 2015-01-05 Completed [facility] Conjugate 13-Valent 00:00:00 Hospi true Td 2015-01-05 Completed [facility] 00:00:00 Hospital Influenza, 2015-01-05 Completed [facility] Unspecified 00:00:00 Hospital Pneumococcal 2015-01-05 Completed [facility] Conjugate 13-Valent 00:00:00 Hospi true Td 2015-01-05 Completed [facility] 00:00:00 Hospital Influenza, 2015-01-05 Completed [facility] Unspecified 00:00:00 Hospital Pneumococcal 2015-01-05 Completed [facility] Conjugate 13-Valent 00:00:00 Hospi true Td 2015-01-05 Completed [facility] 00:00:00 Hospital Td 2015-01-05 Completed [facility] 00:00:00 Hospital Influenza, 2015-01-05 Completed [facility] Unspecified 00:00:00 Hospital Pneumococcal 2015-01-05 Completed [facility] Conjugate 13-Valent 00:00:00 Hospi true Influenza Virus 2015-01-05 Completed Universit y of Vaccine 00:00:00 [facility] Pneumococcal 13 2015-01-05 Completed Universit y of Conjugate, PCV13 00:00:[address] [facility] dical (Prevnar 13) Branch Tetanus/Diptheria 2015-01-05 Completed Univers ity of 00:00:00 [facility] Influenza Virus 2015-01-05 Completed Universit y of Vaccine 00:00:00 [facility] Pneumococcal 13 2015-01-05 Completed Universit y of Conjugate, PCV13 00:00:[address] [facility] dical (Prevnar 13) Branch Tetanus/Diptheria 2015-01-05 Completed Univers ity of 00:00:00 [facility] Influenza Virus 2015-01-05 Completed Universit y of Vaccine 00:00:00 [facility] Pneumococcal 13 2015-01-05 Completed Universit y of Conjugate, PCV13 00:00:[address] [facility] dical (Prevnar 13) Branch Tetanus/Diptheria 2015-01-05 Completed Univers ity of 00:00:00 [facility] Influenza Virus 2015-01-05 Completed Universit y of Vaccine 00:00:00 [facility] Pneumococcal 13 2015-01-05 Completed Universit y of Conjugate, PCV13 00:00:[address] [facility] dical (Prevnar 13) Branch Tetanus/Diptheria 2015-01-05 Completed Univers ity of 00:00:00 [facility] Influenza Virus 2015-01-05 Completed Universit y of Vaccine 00:00:00 [facility] Pneumococcal 13 2015-01-05 Completed Universit y of Conjugate, PCV13 00:00:[address] [facility] dical (Prevnar 13) Branch Tetanus/Diptheria 2015-01-05 Completed Univers ity of 00:00:00 [facility] Influenza Virus 2015-01-05 Completed Universit y of Vaccine 00:00:00 [facility] Pneumococcal 13 2015-01-05 Completed Universit y of Conjugate, PCV13 00:00:[address] [facility] dical (Prevnar 13) Branch Tetanus/Diptheria 2015-01-05 Completed Univers ity of 00:00:00 [facility] Influenza Virus 2015-01-05 Completed Universit y of Vaccine 00:00:00 [facility] Pneumococcal 13 2015-01-05 Completed Universit y of Conjugate, PCV13 00:00:[address] [facility] dical (Prevnar 13) Branch Tetanus/Diptheria 2015-01-05 Completed Univers ity of 00:00:00 [facility] Influenza Virus 2015-01-05 Completed Universit y of Vaccine 00:00:00 [facility] Pneumococcal 13 2015-01-05 Completed Universit y of Conjugate, PCV13 00:00:[address] [facility] dical (Prevnar 13) Branch Tetanus/Diptheria 2015-01-05 Completed Univers ity of 00:00:00 [facility] Influenza Virus 2015-01-05 Completed Universit y of Vaccine 00:00:00 [facility] Pneumococcal 13 2015-01-05 Completed Universit y of Conjugate, PCV13 00:00:[address] [facility] dical (Prevnar 13) Branch Tetanus/Diptheria 2015-01-05 Completed Univers ity of 00:00:00 [facility] Influenza Virus 2015-01-05 Completed Universit y of Vaccine 00:00:00 [facility] Pneumococcal 13 2015-01-05 Completed Universit y of Conjugate, PCV13 00:00:[address] [facility] dical (Prevnar 13) Branch Tetanus/Diptheria 2015-01-05 Completed Univers ity of 00:00:00 [facility] Influenza Virus 2015-01-05 Completed Universit y of Vaccine 00:00:00 [facility] Pneumococcal 13 2015-01-05 Completed Universit y of Conjugate, PCV13 00:00:[address] [facility] dical (Prevnar 13) Branch Tetanus/Diptheria 2015-01-05 Completed Univers ity of 00:00:00 [facility] Pneumococcal 2013-05-21 Completed [facility] Conjugate 00:00:00 Hospital Tdap 2013-05-21 Completed [facility] 00:00:00 Hospital Pneumococcal 2013-05-21 Completed [facility] Conjugate 00:00:00 Hospital Tdap 2013-05-21 Completed [facility] 00:00:00 Hospital Pneumococcal 2013-05-21 Completed [facility] Conjugate 00:00:00 Hospital Tdap 2013-05-21 Completed [facility] 00:00:00 Hospital Pneumococcal 2013-05-21 Completed [facility] Conjugate 00:00:00 Hospital Tdap 2013-05-21 Completed [facility] 00:00:00 Hospital H1N1 All Forms 2009-04-20 Completed [facility] 00:00:00 Hospital H1N1 All Forms 2009-04-20 Completed [facility] 00:00:00 Hospital H1N1 All Forms 2009-04-20 Completed [facility] 00:00:00 Hospital H1N1 All Forms 2009-04-20 Completed [facility] 00:00:00 Hospital Vital Signs Vital Name Observation Time Observation Value Comments Source HEIGHT 2022-01-14 10:00:00 162.6 cm WEIGHT 2022-01-14 10:00:00 68.04 kg HEIGHT 2022-01-14 10:00:00 162.6 cm WEIGHT 2022-01-14 10:00:00 68.04 kg HEIGHT 2022-01-14 10:00:00 162.6 cm WEIGHT 2022-01-14 10:00:00 68.04 kg Systolic blood 2022-01-18 12:00:00 117 mm[Hg] [facility] Diastolic blood 2022-01-18 12:00:00 51 mm[Hg] [facility] Heart rate 2022-01-18 12:00:00 80 /min [facility] Body temperature 2022-01-18 12:00:00 36.78 Mena [facility] Respiratory rate 2022-01-18 12:00:00 18 /min [facility] Oxygen saturation in 2022-01-18 12:00:00 100 /min [facility] Arterial blood by Medical Ce nter Pulse oximetry Body height 2022-01-14 10:00:00 162.6 cm [facility] Body weight 2022-01-14 10:00:00 68.04 kg [facility] BMI 2022-01-14 10:00:00 25.75 kg/m2 [facility] Systolic blood 2021-09-16 23:24:00 145 mm[Hg] [facility] pressure Diastolic blood 2021-09-16 23:24:00 78 mm[Hg] [facility] pressure Heart rate 2021-09-16 23:00:00 80 /min [facility] Respiratory rate 2021-09-16 23:00:00 19 /min [facility] od[facility] Body temperature 2021-09-16 19:25:00 36.28 Mena [facility] Oxygen saturation in 2021-09-16 15:57:32 98 /min [facility] Arterial blood by Pulse oximetry Body height 2021-09-07 12:58:00 162.6 cm [facility] Body weight 2021-09-07 12:58:00 67.3 kg [facility] BMI 2021-09-07 12:58:00 25.47 kg/m2 [facility] Procedures Procedure Date / Time Performing Source Performed Clinician EXTERNAL PROVIDER RECORDS 2022-07-05 [facility] 06:01:00 Unassigned, No [facility] EXTERNAL PROVIDER RECORDS 2022-04-01 Doctor Univer sity of 06:01:00 Unassigned, No [facility] POCT-GLUCOSE METER 2022-01-[address] [facility] 12:10:00 [facility] HEMODIALYSIS INPATIENT 2022-01-[address] [facility] 07:52:23 [facility] BASIC METABOLIC PANEL 2022-01-18 Reji[facility]00 [facility] POCT-GLUCOSE METER 2022-01-17 Reji, Mauro [facility] 19:46:00 [facility] POCT-GLUCOSE METER 2022-01-17 Reji, Mauro [facility] 17:06:00 [facility] POCT-GLUCOSE METER 2022-01-17 Reji, Mauro [facility] 12:13:00 [facility] POCT-GLUCOSE METER 2022-01-17 Reji, Mauro [facility] 08:29:00 [facility] BASIC METABOLIC PANEL 2022-01-17 Reji, [facility]00 [facility] POCT-GLUCOSE METER 2022-01-16 Reji, Mauro [facility] 20:16:00 Medical Center POCT-GLUCOSE METER 2022-01-16 Reji, Mauro [facility] 15:46:00 Medical Center POCT-GLUCOSE METER 2022-01-16 Reji, Mauro [facility] 11:46:00 Medical Center POCT-GLUCOSE METER 2022-01-16 Reji, Mauro [facility] 07:47:00 [facility] POCT-GLUCOSE METER 2022-01-15 Reji, Mauro [facility] 20:13:00 [facility] POCT-GLUCOSE METER 2022-01-15 Reji, Mauro [facility] 17:54:00 [facility] POCT-GLUCOSE METER 2022-01-15 [facility], Mauro [facility] 12:31:00 [facility] HEMODIALYSIS INPATIENT 2022-01-15 Lexie, Rufina [facility] 10:06:42 [facility] POCT-GLUCOSE METER 2022-01-15 Formerly [facility], Mauro [facility] 07:32:00 [facility] BASIC METABOLIC PANEL 2022-01-15 [facility] 03:58:00 [facility] POCT-GLUCOSE METER 2022-01-14 [facility]uro [facility] 20:42:00 [facility] POCT-GLUCOSE METER 2022-01-14 [facility] Mauro [facility] 15:38:00 [facility] SARS-COV2/RT-PCR ([facility]) 2022-01-14 [facility]ly [facility], Surinde r [facility] 14:57:00 [facility] XR CHEST 1 VIEW PORTABLE / BEDSIDE 2022-01-14 [facility]ly [facility], Surinde r [facility] 14:38:00 [facility] POCT-GLUCOSE METER 2022-01-14 [facility] Mauro [facility] 12:02:00 [facility] IR CENTRAL VENOUS CATHETER 2022-01-14 [facility] PLACEMENT (JUGULAR OR FEMORAL) 11:14:00 [facility] POCT-GLUCOSE METER 2022-01-14 [facility] Mauro [facility] 08:24:00 [facility] CBC (HEMOGRAM ONLY) 2022-01-14 [facility] Mauro [facility] 04:11:00 [facility] BASIC METABOLIC PANEL 2022-01-14 [facility] 04:11[facility]00 [facility] POCT-GLUCOSE METER 2022-01-13 [facility] Mauro [facility] 19:39:00 [facility] POCT-GLUCOSE METER 2022-01-13 [facility] Mauro [facility] 16:37:00 [facility] POCT-GLUCOSE METER 2022-01-13 [facility] Mauro [facility] 13:51:00 [facility] BLOOD GAS, ARTERIAL 2022-01-13 Reji, Mauro [facility] 08:41:00 [facility] POCT-GLUCOSE METER 2022-01-13 Reji, Mauro [facility] 08:25:[address] [facility] [address] BRAIN WITHOUT IV CONTRAST 2022-01-13 Reji, Mauro [facility] 07:50:00 [facility] COMPREHENSIVE METABOLIC PANEL 2022-01-13 Reji, [facility]uro [facility] 07:29:00 [facility] TROPONIN I 2022-01-13 [facility]uro [facility] 07:29:00 [facility] TSH/FREE T4 IF INDICATED 2022-01-13 [facility]uro [facility] 07:29:00 [facility] CBC W/PLT COUNT & AUTO 2022-01-13 [facility] DIFFERENTIAL 07:29:00 [facility] CBC W/PLT COUNT & AUTO 2022-01-13 [facility] DIFFERENTIAL 07:29:00 [facility] POCT-GLUCOSE METER 2022-01-13 Reji, Mauro [facility] 07:04:00 [facility] POCT-GLUCOSE METER 2022-01-13 [facility]uro [facility] 06:21:00 [facility] POCT-GLUCOSE METER 2022-01-12 Reji, Mauro [facility] 20:53:00 [facility] POCT-GLUCOSE METER 2022-01-12 Reji, Mauro [facility] 19:20:00 [facility] POCT-GLUCOSE METER 2022-01-12 Reji, Mauro [facility] 18:50:00 [facility] POCT-GLUCOSE METER 2022-01-12 Reji, Mauro [facility] 17:58:00 [facility] IR TUNNELED CATHETER INSERTION 2022-01-[address] [facility] 16:30:00 [facility] POCT-GLUCOSE METER 2022-01-12 Reji, Mauro [facility] 12:08:00 [facility] POCT-GLUCOSE METER 2022-01-[address] [facility] 08:49:00 [facility] CBC W/PLT COUNT & AUTO 2022-01-[address] [facility] DIFFERENTIAL 05:39:00 [facility] BASIC METABOLIC PANEL 2022-01-12 [facility], Annalee Jan [facility] 05:39:00 [facility] MAGNESIUM 2022-01-12 [facility] Jan [facility] 05:39:00 [facility] PHOSPHORUS 2022-01-12 [facility]e Jan [facility] 05:39:00 [facility] PROTHROMBIN TIME/INR 2022-01-12 [facility], [facility] Montoya [facility] 05:39:00 [facility] APTT 2022-01-12 [facility], Annalee Montoya [facility] 05:39:00 [facility] CBC W/PLT COUNT & AUTO 2022-01-12 [facility], Annalee Montoya [facility] DIFFERENTIAL 05:39:00 [facility] (MANUAL DIFFERENTIAL) 2022-01-12 [facility], Annalee Montoya [facility] 05:39:00 [facility] POCT-GLUCOSE METER 2022-01-11 [facility], Annalee Montoya [facility] 19:49:00 [facility] POCT-GLUCOSE METER 2022-01-11 [facility], Annalee Montoya [facility] 17:57:00 [facility] POCT-GLUCOSE METER 2022-01-11 [facility], Annalee Montoya [facility] 12:37:00 [facility] HEMODIALYSIS INPATIENT 2022-01-[address] [facility] 12:29:37 [facility] POCT-GLUCOSE METER 2022-01-11 [facility], Annalee Montoya [facility] 07:49:00 [facility] POCT-GLUCOSE METER 2022-01-10 [facility], Annalee Montoya [facility] 21:16:00 [facility] POCT-GLUCOSE METER 2022-01-10 [facility], Annalee Montoya [facility] 15:24:00 [facility] IR TUNNEL CATHETER EXCHANGE 2022-01-[address] [facility] 11:23:00 [facility] POCT-GLUCOSE METER 2022-01-10 [facility], Annalee Montoya [facility] 11:21:00 [facility] CBC W/PLT COUNT & AUTO 2022-01-10 [facility], Annalee Montoya [facility] DIFFERENTIAL 04:13:00 [facility] BASIC METABOLIC PANEL 2022-01-10 [facility], Annalee Montoya [facility] 04:13:00 [facility] MAGNESIUM 2022-01-10 Shieh, Annalee Montoya [facility] 04:13:00 [facility] PHOSPHORUS 2022-01-10 Shieh, Annalee Jan [facility] 04:13:00 [facility] APTT 2022-01-[address] [facility] 04:13:00 [facility] CBC W/PLT COUNT & AUTO 2022-01-10 Shieh, Annalee Jan [facility] DIFFERENTIAL 04:13:00 [facility] POCT-GLUCOSE METER 2022-01-09 Shieh, Annalee Jan [facility] 21:15:00 [facility] Center APTT 2022-01-09 Shieh, Annalee Montoya [facility] 19:08:00 [facility] POCT-GLUCOSE METER 2022-01-09 Shieh, Annalee Montoya [facility] 17:02:00 [facility] POCT-GLUCOSE METER 2022-01-09 Shieh, Annalee Montoya [facility] 11:22:00 [facility] APTT 2022-01-09 Shieh, Annalee Montoya [facility] 09:44:00 [facility] POCT-GLUCOSE METER 2022-01-09 Shieh, Annalee Jan [facility] 07:19:00 [facility] POCT-GLUCOSE METER 2022-01-09 Shieh, Annalee Montoya [facility] 05:05:00 [facility] CBC W/PLT COUNT & AUTO 2022-01-09 Shieh, Annalee Montoya [facility] DIFFERENTIAL 04:57:00 [facility] BASIC METABOLIC PANEL 2022-01-09 Shieh, Annalee Jan [facility] 04:57:00 [facility] MAGNESIUM 2022-01-09 Shieh, Annalee Jan [facility] 04:57:00 [facility] PHOSPHORUS 2022-01-09 Shieh, Annalee Jan [facility] 04:57:00 [facility] Center CBC W/PLT COUNT & AUTO 2022-01-09 Shieh, Annalee Montoya [facility] DIFFERENTIAL 04:57:00 [facility] APTT 2022-01-09 Shieh, Annalee Montoya [facility] 00:34:00 [facility] POCT-GLUCOSE METER 2022-01-08 Shieh, Annalee Montoya [facility] 16:49:00 Medical Center APTT 2022-01-[address] [facility] 16:13:00 [facility] HEMODIALYSIS INPATIENT 2022-01-08 Lexie, Rufina [facility] 15:47:52 [facility] HEPATITIS B SURFACE ANTIGEN 2022-01-08 Lexie, Ahmed [facility] 15:40:00 [facility] HEPATITIS B SURFACE ANTIBODY 2022-01-08 Lexie, Ahmed [facility] 15:40:00 [facility] POCT-GLUCOSE METER 2022-01-08 Deirdreeh, Annalee Jan [facility] 12:18:00 [facility] POCT-GLUCOSE METER 2022-01-08 Shieh, Annalee Jan [facility] 07:59:00 [facility] CBC W/PLT COUNT & AUTO 2022-01-08 Maida, Annalee Montoya [facility] DIFFERENTIAL 05:27:00 [facility] BASIC METABOLIC PANEL 2022-01-08 [facility] 05:27:00 [facility] MAGNESIUM 2022-01-08 [facility], Annalee Montoya [facility] 05:27:00 [facility] PHOSPHORUS 2022-01-08 [facility] Annalee Jan [facility] 05:27:00 [facility] HEMOGLOBIN A1C 2022-01-08 [facility] Annalee C [facility] 05:27:00 [facility] CBC W/PLT COUNT & AUTO 2022-01-08 [facility]e C [facility] DIFFERENTIAL 05:27:00 [facility] APTT 2022-01-[address] [facility] 05:26:00 [facility] POCT-GLUCOSE METER 2022-01-07 [facility]alee C [facility] 21:01:00 [facility] APTT 2022-01-07 Roman, Joanna [facility] 21:00:00 [facility] CARDIAC CATH REPORT - SCAN 2022-01-07 Provider, Default [facility] 00:00:00 Scanning [facility] EKG-SCANNED 2022-01-07 Provider, Default [facility] 00:00:00 Scanning [facility] HEMODIALYSIS 2021-09-16 Marycarmen Matson 20:36:27 [facility] POC GLUCOSE 2021-09-16 Corrine Osuna 15:59:00 Hospital POC GLUCOSE 2021-09-16 Al-Lahiq, Corrine Paceist 11:10:00 Hospital POC GLUCOSE 2021-09-16 Al-Lahiq, Corrine Conroy 01:24:00 Hospital POC GLUCOSE 2021-09-15 Al-Lahiq, Corrine [facility] 20:54:00 Hospital POC GLUCOSE 2021-09-15 Al-Lahiq, Corrine Paceist 16:27:00 Hospital POC GLUCOSE 2021-09-15 Al-Lahiq, Corrine Paceist 12:04:00 Hospital POC GLUCOSE 2021-09-15 Al-Lahiq, Corrine Paceist 11:16:00 Hospital POC GLUCOSE 2021-09-15 Al-Lahiq, Corrine Conroy 01:21:00 Hospital POC GLUCOSE 2021-09-14 Al-Lahiq, Corrine [facility] 21:57:00 Hospital POC GLUCOSE 2021-09-14 Al-Lalarryq, Corrine Conroy 17:17:00 Hospital IR TUNNELED DIALYSIS CATHETER 2021-09-14 Michoacano Owens Hi thodist REPLACEMENT/EXCHANGE 13:59:03 [facility] HEMODIALYSIS 2021-09-14 FlorenceMarycarmen jauregui 12:42:40 [facility] POC GLUCOSE 2021-09-14 Avery-Corrine Dozier 11:19:00 [facility] BASIC METABOLIC PANEL 2021-09-14 FlorenceMarycarmen jauregui 09:34:00 [facility] ESTIMATED GFR 2021-09-14 Marycarmen Matson 09:34:00 [facility] ZZCOVID-19 ANTI-SPIKE IGG ANTIBODY 2021-09-14 Michoacano Owens TITER 03:25:00 [facility] TYPE AND SCREEN 2021-09-14 Michoacano [facility] 2021-09-14 Michoacano Owens Meth odist SURVEILLANCE 03:25:00 [facility] POC GLUCOSE 2021-09-14 Avery-Corrine Dozier 01:33:00 Hospital POC GLUCOSE 2021-09-13 AveryKaitlynqCorrine 23:43:00 Hospital SURGICAL PATHOLOGY REQUEST 2021-09-13 Corrine Osuna Metho dist 20:11:00 Hospital ESOPHAGOGASTRODUODENOSCOPY (EGD) 2021-09-13 Marycarmen Lopez 19:58:00 [facility] POC GLUCOSE 2021-09-13 Avery-Corrine Dozier 17:23:00 Hospital POC GLUCOSE 2021-09-13 Corrine Osuna 11:26:00 Hospital BASIC METABOLIC PANEL 2021-09-13 Marycarmen Matson 10:25:00 [facility] CBC WITH PLATELET AND DIFFERENTIAL 2021-09-13 Whit Osuna 10:25:00 Hospital PARTIAL THROMBOPLASTIN TIME (PTT) 2021-09-13 Corrine Osuna 10:25:00 [facility] ESTIMATED GFR 2021-09-13 Marycarmen Matson 10:25:00 [facility] PROTHROMBIN TIME WITH INR 2021-09-13 Corrine Osuna ist 10:25:00 Hospital POC GLUCOSE 2021-09-13 Avery-Corrine Dozier 00:48:00 Hospital ECG 12-LEAD 2021-09-12 Marycarmen Lopez 23:22:14 [facility] POC GLUCOSE 2021-09-12 Avery-Corrine Dozier 22:53:00 Hospital POC GLUCOSE 2021-09-12 Avery-Corrine Dozier 21:49:00 Hospital POC GLUCOSE 2021-09-12 Al-LahiqCorrine 16:57:00 Hospital POC GLUCOSE 2021-09-12 Al-LalarryqCorrine 11:26:00 Hospital POC GLUCOSE 2021-09-12 Avery-Corrine Dozier 11:01:00 Hospital BASIC METABOLIC PANEL 2021-09-12 Marycarmen Matson 09:15:00 [facility] ESTIMATED GFR 2021-09-12 Marycarmen Matson 09:15:00 [facility] HEMODIALYSIS 2021-09-12 Marycarmen Matson 02:06:24 [facility] POC GLUCOSE 2021-09-12 Avery-Corrine Dozier [facility] 01:05:00 Hospital POC GLUCOSE 2021-09-11 Al-Corrine Dozier [facility] 21:53:00 Hospital POC GLUCOSE 2021-09-11 Al-Corrine Dozier [facility] 16:41:00 Hospital HEMODIALYSIS 2021-09-11 Marycarmen Matson 15:53:24 [facility] POC GLUCOSE 2021-09-11 Avery-Corrine Dozier 11:14:00 [place] [id number] ANTI-SPIKE IGG ANTIBODY 2021-09-11 Whit Osuna [facility] TITER 09:40:00 Hospital BASIC METABOLIC PANEL 2021-09-11 Marycarmen Matson 09:40:00 [facility] HEMOGLOBIN A1C 2021-09-11 Corrine Osuna 09:40:00 [place] [id number] SEROLOGY PATIENT 2021-09-11 Corrine Osuna Meth odist SURVEILLANCE 09:40:00 Hospital CBC WITH PLATELET AND DIFFERENTIAL 2021-09-11 Whit Osuna [facility] 09:40:00 Hospital ESTIMATED GFR 2021-09-11 Marycarmen Matson 09:40:00 [facility] POC GLUCOSE 2021-09-11 Avery-Corrine Dozier 00:39:00 Hospital POC GLUCOSE 2021-09-10 Corrine Osuna 21:14:00 Hospital CORTISOL LEVEL, AM 2021-09-10 Avery-Corrine Dozier 16:58:00 Hospital POC GLUCOSE 2021-09-10 Al-KaitlynqCorrine Lutheran 15:59:00 Hospital POC GLUCOSE 2021-09-10 Al-Corrine Dozier [facility] 11:26:00 Hospital BASIC METABOLIC PANEL 2021-09-10 Marycarmen Matson 09:55:00 [facility] ESTIMATED GFR 2021-09-10 Marycarmen Matson 09:55:00 [facility] POC GLUCOSE 2021-09-10 Al-Corrine Dozier [facility] 00:18:00 Hospital POC GLUCOSE 2021-09-09 Al-Lalarryq, Corrine Lutheran 21:28:00 Hospital POC GLUCOSE 2021-09-09 Al-Lalarryq, Corrine Lutheran 16:28:[address] HEAD WO CONTRAST 2021-09-09 Avery-Corrine Dozier [facility] 14:48:37 Hospital HEMODIALYSIS 2021-09-09 Marycarmen Matson 14:08:47 [facility] POC GLUCOSE 2021-09-09 Al-Kaitlynq, Corrine Lutheran 11:30:00 Hospital BASIC METABOLIC PANEL 2021-09-09 Marycarmen Matson 10:45:00 [facility] ESTIMATED GFR 2021-09-09 Marycarmen Matson 10:45:00 [facility] POC GLUCOSE 2021-09-09 Al-KaitlynqCorrine Lutheran 01:10:00 Hospital POC GLUCOSE 2021-09-08 Al-KaitlynqCorrine Lutheran 21:16:00 Hospital POC GLUCOSE 2021-09-08 Al-Kaitlynq, Corrine Luther[facility] 16:10:00 Hospital BASIC METABOLIC PANEL 2021-09-08 Haja Fraser 09:27:00 Hospital MAGNESIUM LEVEL 2021-09-08 Haja Fraser 09:27:00 Hospital ESTIMATED GFR 2021-09-08 Haja Fraser 09:27:00 Hospital GASTROINTESTINAL PATHOGENS PANEL, 2021-09-08 Kimmy Cronin PCR 02:15:00 Hospital POC GLUCOSE 2021-09-08 Al-LalarryqCorrine Lutheran 01:30:00 Hospital BASIC METABOLIC PANEL 2021-09-07 Al-Lalarryq, Corrine Lutheran 18:00:00 Hospital ESTIMATED GFR 2021-09-07 Al-Lalarryq, Corrine Lutheran 18:00:00 Hospital HEPATITIS B SURFACE ANTIGEN 2021-09-07 Andrea Matson odist 18:00:00 [facility] HEPATITIS B SURFACE AB, 2021-09-07 Stephen Matson t QUANTITATIVE 18:00:00 [facility] XR CHEST 1 VW PORTABLE 2021-09-07 Corrine Osuna 16:47:43 Hospital XR ABDOMEN 1 VW 2021-09-07 Corrine Osuna 16:47:22 Hospital HEMODIALYSIS 2021-09-07 Haja Fraser 16:16:15 Hospital POC GLUCOSE 2021-09-07 Corrine Osuna 11:07:00 Hospital TROPONIN T 2021-09-07 Trinidad Menard 03:35:00 [place] TROPONIN T 2021-09-07 Marley Cronin 00:00:00 Hospital [...] Hospital POC GLUCOSE 2021-08-13 Marycarmen Nuñez 16:22:00 [facility] POC GLUCOSE 2021-08-13 Marycarmen Nuñez 11:17:00 [facility] XR CHEST 1 VW PORTABLE 2021-08-13 Josemanuel Vences 11:13:27 Hospital BASIC METABOLIC PANEL 2021-08-13 Josemanuel Vences 10:26:00 Hospital ESTIMATED GFR 2021-08-13 Josemanuel Vences 10:26:00 Hospital POC GLUCOSE 2021-08-13 Marycarmen Nuñez 00:38:00 [facility] HEMODIALYSIS 2021-08-13 Josemanuel Vences 00:09:24 Hospital [place] AN ELECTIVE ENDOTRACHEAL AIRWAY 2021-08-12 Leodan Rebolledo [facility] 23:45:00 Hospital INSERTION, CATHETER, DIALYSIS, 2021-08-12 Josemanuel Vences ethodist PERITONEAL, LAPAROSCOPIC 23:10:00 Hospita l POC GLUCOSE 2021-08-12 Kohlnhofer, Lutheran 20:36:00 [facility] COVID-19 QUALITATIVE RT-PCR 2021-08-12 Ti Post 17:35:00 [facility] POC GLUCOSE 2021-08-12 Kohlnhofer, Lutheran 15:58:00 [facility] POC GLUCOSE 2021-08-12 Kohlnhofer, Lutheran 11:07:00 [facility] ECG 12-LEAD 2021-08-12 Marycarmen Mcdonald 11:02:39 [facility] BASIC METABOLIC PANEL 2021-08-12 Marycarmen Matson 09:47:00 [facility] ESTIMATED GFR 2021-08-12 Marycarmen Matson 09:47:00 [facility] POC GLUCOSE 2021-08-12 Kohlnhofer Lutheran 00:51:00 [facility] POC GLUCOSE 2021-08-11 Kohlnhofer, Lutheran 20:44:00 [facility] POC GLUCOSE 2021-08-11 Kohlnhofer, Lutheran 16:14:00 [facility] POC GLUCOSE 2021-08-11 Kohlnhofer, Lutheran 11:06:00 [facility] POC GLUCOSE 2021-08-11 Kohlnhofer, Lutheran 00:30:00 [facility] POC GLUCOSE 2021-08-10 Kohlnhofer, Lutheran 20:48:00 [facility] POC GLUCOSE 2021-08-10 Kohlnhofer, Lutheran 11:07:00 [facility] POC GLUCOSE 2021-08-10 Kohlnhofer, Lutheran 00:46:00 [facility] POC GLUCOSE 2021-08-09 Kohlnhofer, Lutheran 21:37:00 [facility] HEMODIALYSIS 2021-08-09 Marycarmen Matson 17:13:01 [facility] POC GLUCOSE 2021-08-09 Kohlnhofer, Lutheran 16:55:00 [facility] POC GLUCOSE 2021-08-09 Tammy Dumont 11:19:00 [facility] BASIC METABOLIC PANEL 2021-08-09 Marycarmen Matson 10:52:00 [facility] ESTIMATED GFR 2021-08-09 Marycarmen Matson 10:52:00 [facility] PROCALCITONIN 2021-08-09 Hyacinth Guthrie [facility] 02:51:00 [facility] POC GLUCOSE 2021-08-09 Tammy Dumont 00:26:00 [facility] POC GLUCOSE 2021-08-08 Tammy Dumont 21:18:00 [facility] POC GLUCOSE 2021-08-08 Tammy Dumont 19:34:00 [facility] POC GLUCOSE 2021-08-08 Tammy Dumont 10:58:00 [facility] DIGOXIN LEVEL 2021-08-08 Ritu Graves 10:46:00 [facility] BASIC METABOLIC PANEL 2021-08-08 FlorenceMarycarmen jauregui 10:46:00 [facility] ESTIMATED GFR 2021-08-08 FlorenceMarycarmen jauregui 10:46:00 [facility] POC GLUCOSE 2021-08-08 Tammy Dumont 02:06:00 [facility] POC GLUCOSE 2021-08-07 Tammy Dumont 23:09:00 [facility] HEMODIALYSIS 2021-08-07 FlorenceMarycarmen jauregui 20:13:07 [facility] POC GLUCOSE 2021-08-07 Tammy Dumont 15:50:00 [facility] POC GLUCOSE 2021-08-07 Tammy Dumont 11:19:00 [facility] CBC WITH PLATELET AND DIFFERENTIAL 2021-08-07 Steven Lucero 11:15:00 [facility] COMPREHENSIVE METABOLIC PANEL 2021-08-07 Rupali Lucero 11:15:00 [facility] ESTIMATED GFR 2021-08-07 Rupali Lucero 11:15:00 [facility] POC GLUCOSE 2021-08-07 Tammy Dumont 00:58:00 [facility] HEMODIALYSIS 2021-08-06 Marycarmen Matson 21:36:17 [facility] POC GLUCOSE 2021-08-06 Mougouris, Taso [facility] 21:21:00 Hospital POC GLUCOSE 2021-08-06 Mougouris, Taso [facility] 15:39:00 Hospital BASIC METABOLIC PANEL 2021-08-06 Marycarmen Matson 11:19:00 [facility] ESTIMATED GFR 2021-08-06 [facility] 11:19[facility]00 [facility] POC GLUCOSE 2021-08-06 Mougouris, Tasav Conroy 09:09:00 Hospital POC GLUCOSE 2021-08-06 Mougouris, Taso [facility] 04:44:00 Hospital HEMODIALYSIS 2021-08-06 [facility] 02:34:43 [facility] POC GLUCOSE 2021-08-06 Mougouris, Taso Luther[facility] 01:09:00 [facility] XR CHEST 1 VW PORTABLE 2021-08-05 Joanna Leiva 23:40:00 Hospital POC GLUCOSE 2021-08-05 Mougouris, Taso [facility] 21:24:00 Hospital OR [place] < 1 HOUR 2021-08-05 Joanna Leiva 21:05:00 Hospital [place] AN ELECTIVE SUPRAGLOTTIC AIRWAY 2021-08-05 Grazyna Martinez 20:19:00 [facility] INSERTION, CATHETER, CENTRAL 2021-08-05 Joanna Leiva VENOUS, TUNNELED, FOR HEMODIALYSIS 20:13:00 Hospital TYPE AND SCREEN 2021-08-05 Ti Post 20:09:00 Hospital POC GLUCOSE 2021-08-05 Mougouris, Tasneem Conroy 15:43:00 Hospital ECG 12-LEAD 2021-08-05 [facility] 14:07:10 Hospital POC GLUCOSE 2021-08-05 Marycarmen Ayers 11:25:00 [facility] XR CHEST 1 VW PORTABLE 2021-08-05 Ti Post t 11:17:10 [facility] CBC WITH PLATELET AND DIFFERENTIAL 2021-08-05 Steven Lucero 10:45:00 [facility] BASIC METABOLIC PANEL 2021-08-05 Rupali Lucero 10:45:00 [facility] ESTIMATED GFR 2021-08-05 Rupali Lucero 10:45:00 [facility] POC GLUCOSE 2021-08-05 Marycarmen Ayers 00:57:00 [facility] POC GLUCOSE 2021-08-04 Marycarmen Ayers 16:51:00 [facility] XR ABDOMEN 1 VW 2021-08-04 Rupali Lucero 16:40:00 [facility] POC GLUCOSE 2021-08-04 Tammy Dumont 11:24:00 [facility] HC COMPLETE BLD COUNT W/AUTO DIFF 2021-08-04 Tammy Dumont 11:06:00 [facility] BASIC METABOLIC PANEL 2021-08-04 Marycarmen Matson 11:06:00 [facility] MAGNESIUM LEVEL 2021-08-04 Rupali Lucero 11:06:00 [facility] PHOSPHORUS LEVEL 2021-08-04 Rupali Lucero 11:06:00 [facility] ESTIMATED GFR 2021-08-04 Marycarmen Matson 11:06:00 [facility] POC GLUCOSE 2021-08-04 Tammy Dumont 00:57:00 [facility] POC GLUCOSE 2021-08-03 Tammy Dumont 21:36:00 [facility] HEPATITIS B CORE ANTIBODY TOTAL 2021-08-03 Marycarmen Matson 17:42:00 [facility] HEPATITIS B SURFACE AB, 2021-08-03 Stephen Matson t QUANTITATIVE 17:42:00 [facility] HEPATITIS C ANTIBODY 2021-08-03 Marycarmen Matson 17:42:00 [facility] HEPATITIS B SURFACE ANTIGEN 2021-08-03 Andrea Matson odist 17:42:00 [facility] POC GLUCOSE 2021-08-03 Tammy Dumont 16:38:00 [facility] POC GLUCOSE 2021-08-03 Tammy Dumont 11:29:00 [facility] HC COMPLETE BLD COUNT W/AUTO DIFF 2021-08-03 Ender Lucero 11:03:00 [facility] BASIC METABOLIC PANEL 2021-08-03 Rupali Lucero 11:03:00 [facility] PHOSPHORUS LEVEL 2021-08-03 Marycarmen Matson 11:03:00 [facility] PARATHYROID HORMONE 2021-08-03 José Espino 11:03:00 [facility] ESTIMATED GFR 2021-08-03 Rupali Lucero 11:03:00 [facility] POC GLUCOSE 2021-08-03 Tammy Dumont 00:22:00 [facility] CV STRESS TEST NUCLEAR CARDIO 2021-08-02 Me Harry thodist 21:45:00 [facility] NM MYOCARDIAL PERFUSION REST 2021-08-02 Met ada Mcdonald STRESS 1 DAY 21:45:00 [facility] POC GLUCOSE 2021-08-02 Tammy Dumont 21:08:00 [facility] POC GLUCOSE 2021-08-02 Tammy Dumont 16:34:00 [facility] POC GLUCOSE 2021-08-02 Tammy Dumont 11:19:00 [facility] HC COMPLETE BLD COUNT W/AUTO DIFF 2021-08-02 Ender Lucero 09:43:00 [facility] BASIC METABOLIC PANEL 2021-08-02 Rupali Lucero 09:43:00 [facility] MAGNESIUM LEVEL 2021-08-02 Rupali Lucero 09:43:00 [facility] ESTIMATED GFR 2021-08-02 Rupali Lucero 09:43:00 [facility] POC GLUCOSE 2021-08-02 Tammy Dumont 00:15:00 [facility] POC GLUCOSE 2021-08-01 Tammy Dumont 20:02:00 [facility] POC GLUCOSE 2021-08-01 Tammy Dumont 16:16:00 [facility] POC GLUCOSE 2021-08-01 Tammy Dumont 11:16:00 [facility] BASIC METABOLIC PANEL 2021-08-01 Theresa Ramos t 10:56:00 Hospital MAGNESIUM LEVEL 2021-08-01 Theresa Ramos 10:56:00 Hospital PHOSPHORUS LEVEL 2021-08-01 Theresa Ramos 10:56:00 Hospital HC COMPLETE BLD COUNT W/AUTO DIFF 2021-08-01 Ender Lucero 10:56:00 [facility] ESTIMATED GFR 2021-08-01 Theresa Ramos [facility] 10:[facility]:00 Hospital ECG 12-LEAD 2021-08-01 Marycarmen Mcdonald 08:03:48 [facility] POC GLUCOSE 2021-08-01 Tammy Dumont 01:35:00 [facility] TTE COMPLETE, WO CONTRAST, W 2021-07-31 Harry, hodist DOPPLER ([id number]) 23:38:00 [facility] POC GLUCOSE 2021-07-31 Tammy Dumont 22:40:00 [facility] COVID-19 QUALITATIVE RT-PCR 2021-07-31 Rupali Luceroist 17:14:00 [facility] POC GLUCOSE 2021-07-31 Tammy Dumont 17:07:00 [facility] POC GLUCOSE 2021-07-31 Tammy Dumont 12:13:00 [facility] B NATRIURETIC PEPTIDE 2021-07-31 José Espino 11:34:00 [facility] BASIC METABOLIC PANEL 2021-07-31 José Espino 11:34:00 [facility] HC COMPLETE BLD COUNT W/AUTO DIFF 2021-07-31 José Espino 11:34:00 [facility] TROPONIN T 2021-07-31 José Espino 11:34:00 [facility] ESTIMATED GFR 2021-07-31 José Espino 11:34:00 [facility] Plan of Care Planned Activity Planned [...] Center INFLUENZA VACCINE (Season Ended)] Future Scheduled 2023-01-[address] [...] Cessation Counseling and Screening (12+)] Future Scheduled 2022-09-27 DIABETIC FOOT EXAM [facility] Test 12:29:06 [code = DIABETIC FOOT EXAM] Future Scheduled 2022-09-27 COLONOSCOPY SCREENING [facility] Test 12:29:06 [code = COLONOSCOPY SCREENING] Future Scheduled 2022-09-27 DIABETES: RETINAL EYE Me [facility] Test 12:29:06 EXAM [code = DIABETES: RETINAL EYE EXAM] Future Scheduled 2022-09-27 SHINGLES VACCINES (1 Met [facility] Hospital Test 12:29:06 of 2) [code = SHINGLES VACCINES (1 of 2)] Future Scheduled 2022-09-27 BREAST CANCER [facility] Test 12:29:06 SCREENING [code = BREAST CANCER SCREENING] Future Scheduled 2022-09-27 COVID-19 VACCINE (4 - Me [facility] Hospital Test 12:29:06 Booster for Pfizer series) [code = COVID-19 VACCINE (4 - Booster for Pfizer series)] Future Scheduled 2022-09-27 INFLUENZA VACCINE Method [facility] Hospital Test 12:29:06 [code = INFLUENZA VACCINE] Future Scheduled 2022-08-20 DIABETIC FOOT EXAM [facility] Test 03:10:19 [code = DIABETIC FOOT EXAM] Future Scheduled 2022-08-20 COLONOSCOPY SCREENING [facility] Test 03:10:19 [code = COLONOSCOPY SCREENING] Future Scheduled 2022-08-20 DIABETES: RETINAL EYE [facility] Test 03:10:19 EXAM [code = DIABETES: RETINAL EYE EXAM] Future Scheduled 2022-08-20 SHINGLES VACCINES (1 Met [facility] Hospital Test 03:10:19 of 2) [code = SHINGLES VACCINES (1 of 2)] Future Scheduled 2022-08-20 BREAST CANCER [facility] Test 03:10:19 SCREENING [code = BREAST CANCER SCREENING] Future Scheduled 2022-08-20 COVID-19 VACCINE (4 - Me [facility] Hospital Test 03:10:19 Booster for Pfizer series) [code = COVID-19 VACCINE (4 - Booster for Pfizer series)] Future Scheduled 2022-08-20 INFLUENZA VACCINE [facility] Test 03:10:19 [code = INFLUENZA VACCINE] Future Scheduled 2022-07-19 DIABETIC FOOT EXAM [facility] Test 07:26:52 [code = DIABETIC FOOT EXAM] Future Scheduled 2022-07-19 COLONOSCOPY SCREENING [facility] Test 07:26:52 [code = COLONOSCOPY SCREENING] Future Scheduled 2022-07-19 DIABETES: RETINAL EYE [facility] Test 07:26:52 EXAM [code = DIABETES: RETINAL EYE EXAM] Future Scheduled 2022-07-19 SHINGLES VACCINES (1 Met [facility] Test 07:26:52 of 2) [code = SHINGLES VACCINES (1 of 2)] Future Scheduled 2022-07-19 BREAST CANCER [facility] Test 07:26:52 SCREENING [code = BREAST CANCER SCREENING] Future Scheduled 2022-07-19 COVID-19 VACCINE (4 - Me [facility] Test 07:26:52 Booster for Pfizer series) [code = COVID-19 VACCINE (4 - Booster for Pfizer series)] Future Scheduled 2022-07-19 INFLUENZA VACCINE [facility] Test 07:26:52 [code = INFLUENZA VACCINE] [...] SCREENING] Future Scheduled 2022-05-17 DIABETIC FOOT EXAM [facility] Test 10:42:08 [code = DIABETIC FOOT EXAM] Future Scheduled 2022-05-17 COLONOSCOPY SCREENING [facility] Test 10:42:08 [code = COLONOSCOPY SCREENING] Future Scheduled 2022-05-17 DIABETES: RETINAL EYE [facility] Test 10:42:08 EXAM [code = DIABETES: RETINAL EYE EXAM] Future Scheduled 2022-05-17 SHINGLES VACCINES (1 Met [facility] Test 10:42:08 of 2) [code = SHINGLES VACCINES (1 of 2)] Future Scheduled 2022-05-17 BREAST CANCER [facility] Test 10:42:08 SCREENING [code = BREAST CANCER SCREENING] Future Scheduled 2022-05-17 COVID-19 VACCINE (4 - Me [facility] Test 10:42:08 Booster for Pfizer series) [code = COVID-19 VACCINE (4 - Booster for Pfizer series)] Future Scheduled 2022-05-17 INFLUENZA VACCINE [facility] Test 10:42:08 [code = INFLUENZA [...] PPSV23 if available, else PCV20)] Future Scheduled 2017-02-02 PNEUMOCOCCAL 65+ YRS [...] Medica l Center breast (procedure) [code = 106081195] Future Scheduled [address] [facility] 00:00:00 (combo) [code = CT Medical C enter Colonography (combo)] Future Scheduled [address] [facility] Test 00:00:00 malignant neoplasm of Medica l Center colon (procedure) [code = 097502679] Future Scheduled [address] [facility] Test 00:00:00 malignant neoplasm of [facility]ica [facility] Center colon (procedure) [code = 139639812] Future Scheduled 1948 DXA SCAN [code = DXA [facility] Test 00:00:00 SCAN] [facility] Future Scheduled [address] [facility] Test 00:00:00 malignant neoplasm of Medica l Center colon (procedure) [code = 814095603] Future Scheduled [address] [facility] Test 00:00:00 malignant neoplasm of [facility]ica [facility] Center colon (procedure) [code = 141987335] Future Scheduled 1948 Sigmoidoscopy [facility] Future Scheduled [address] [facility] Test 00:00:00 malignant neoplasm of Medica [facility] Center breast (procedure) [code = 627323772] Future Scheduled [address] [facility] 00:00:00 (combo) [code = CT Medical C enter Colonography (combo)] Future Scheduled [address] [facility] Test 00:00:00 malignant neoplasm of [facility]ica [facility] Center colon (procedure) [code = 119696219] Future Scheduled [address] [facility] Test 00:00:00 malignant neoplasm of [facility]ica [facility] Center colon (procedure) [code = 103182199] Future Scheduled 1948 DXA SCAN [code = DXA [facility] Test 00:00:00 SCAN] [facility] Future Scheduled [address] [facility] Test 00:00:00 malignant neoplasm of Medica l Center colon (procedure) [code = 066006542] Future Scheduled [address] [facility] Test 00:00:00 malignant neoplasm of Medica [facility] Center colon (procedure) [code = 771432695] Future Scheduled 1948 Sigmoidoscopy [facility] Future Scheduled [address] [facility] Test 00:00:00 malignant neoplasm of Medica l Center breast (procedure) [code = 534248054] Future Scheduled [address] [facility] 00:00:00 (combo) [code = CT Medical C enter Colonography (combo)] Future Scheduled [address] [facility] Test 00:00:00 malignant neoplasm of Medica l Center colon (procedure) [code = 277376917] Future Scheduled [address] [facility] Test 00:00:00 malignant neoplasm of [facility]ica [facility] Center colon (procedure) [code = 203601503] Future Scheduled 1948 DXA SCAN [code = DXA [facility] Test 00:00:00 SCAN] [facility] Future Scheduled [address] [facility] Test 00:00:00 malignant neoplasm of Medica l Center colon (procedure) [code = 209761207] Future Scheduled [address] [facility] Test 00:00:00 malignant neoplasm of Medica [facility] Center colon (procedure) [code = 590755813] Future Scheduled 1948 Sigmoidoscopy [facility] Future Scheduled [address] [facility] Test 00:00:00 malignant neoplasm of Medica l Center breast (procedure) [code = 455748729] Future Scheduled [address] [facility] 00:00:00 (combo) [code = CT Medical C enter Colonography (combo)] Future Scheduled [address] [facility] Test 00:00:00 malignant neoplasm of Medica [facility] Center colon (procedure) [code = 046612816] Future Scheduled [address] [facility] Test 00:00:00 malignant neoplasm of Medica [facility] Center colon (procedure) [code = 245197158] Future Scheduled 1948 DXA SCAN [code = DXA [facility] Test 00:00:00 SCAN] [facility] Future Scheduled [address] [facility] Test 00:00:00 malignant neoplasm of Medica l Center colon (procedure) [code = 954564144] Future Scheduled [address] [facility] Test 00:00:00 malignant neoplasm of [facility]ica [facility] Center colon (procedure) [code = 998156823] Future Scheduled 1948 Sigmoidoscopy [facility] 00:00:[facility]oscopy] [facility] Future Scheduled [address] [facility] Test 00:00:00 malignant neoplasm of [facility]ica [facility] Center breast (procedure) [code = 894941381] Future Scheduled [address] [facility] 00:00:00 (combo) [code = CT Medical C enter Colonography (combo)] Future Scheduled [address] [facility] Test 00:00:00 malignant neoplasm of Medica [facility] Center colon (procedure) [code = 943761054] Future Scheduled [address] [facility] Test 00:00:00 malignant neoplasm of [facility]ica [facility] Center colon (procedure) [code = 663498758] Future Scheduled 1948 DXA SCAN [code = DXA [facility] Test 00:00:00 SCAN] [facility] Future Scheduled [address] [facility] Test 00:00:00 malignant neoplasm of [facility]ica [facility] Center colon (procedure) [code = 597396753] Future Scheduled [address] [facility] Test 00:00:00 malignant neoplasm of Medica l Center colon (procedure) [code = 377304376] Future Scheduled 1948 Sigmoidoscopy [facility]code [facility] 00:00:[facility]oscopy] Medical Elliotte r Future Scheduled [address] [facility] Test 00:00:00 malignant neoplasm of Medica [facility] breast (procedure) [code = 066283982] Future Scheduled [address] [facility] 00:00:00 (combo) [code = CT Medical C enter Colonography (combo)] Future Scheduled [address] [facility] Test 00:00:00 malignant neoplasm of [facility]ica [facility] Center colon (procedure) [code = 354588869] Future Scheduled [address] [facility] Test 00:00:00 malignant neoplasm of Medica Center colon (procedure) [code = 282933741] Future Scheduled 1948 DXA SCAN [code = DXA [facility] Test 00:00:00 SCAN] [facility] Future Scheduled [address] [facility] Test 00:00:00 malignant neoplasm of Medica [facility] Center colon (procedure) [code = 902308373] Future Scheduled [address] [facility] Test 00:00:00 malignant neoplasm of Medica l Center colon (procedure) [code = 911467364] Future Scheduled 1948 [facility]oid[facility] End Encounter Admission Attending Care Care Encounter Source Date/Time Date/Time Type Type Clinicians Facility Department ID 2022-06-08 Inpatient EL Alfredo, HCACL DAYS [id number] [facility] 09:00:00 Greg 07 [facility] 2022-01-05 Inpatient [facility] [id number] [facility] 13:58:43 [facility] 2021-11-[address] [facility] [id number] [place] 14:10:46 [id number] [facility] 2021-08-[address] [facility] [id number] [place] 09:26:19 [id number] [facility] 2022-07-05 2022-07-05 Juli MANN 1.2.840.114 [id number] Univers 00:00:00 00:00:00 Only Unassigned, YARELI 350.1.13.10 ity of [facility] 4.2.7.2.686 Kev as [phone] [address] 2022-04-01 2022-04-01 Orders Doctor MACKENZIE 1.2.840.114 [id number] Univers 00:00:00 00:00:00 Only Unassigned, YARELI 350.1.13.10 ity of [facility] 4.2.7.2.686 Kev as [phone] [address] 2022-03-24 2022-03-24 Telephone Eran [facility] 1.2.958.300 [id number] Univers 00:00:00 00:00:00 Luc S HEALTH 350.1.13.10 it y of [place] 4.2.7.2.686 Kev as MARISA?BLEA [phone] Hi garcía LOVE [address] [place] [address] MEDICAL OFFICE [facility] 2022-03-23 2022-03-23 Telephone Eran [facility] 1.2.811.362 [id number] Univers 00:00:00 00:00:00 Luc S HEALTH 350.1.13.10 it y of [place] 4.2.7.2.686 Kev as MARISA?BLEA [phone] Hi garcía LOVE [address] [place] [address] OFFICE [facility] 2022-03-18 2022-03-18 Telephone Berenice MIJET 1.2.840.114 [id number] Univers 00:00:00 00:00:00 Alannah L HEALTH 350.1.13.10 it y of [place] 4.2.7.2.686 Kev as MARISA?BLEA [phone] Hi garcía LOVE [address] [facility] OFFICE [facility] 2022-03-16 2022-03-16 Telephone Berenice [facility] 1.2.840.114 [id number] Univers 00:00:00 00:00:00 Alannah L SPECIALTY 350.1.13.10 it[place] [phone] Hi garcía [place] [address] [place] [address] 2022-01-07 2022-01-18 [facility] Annalee Bey [facility] [id number] 17:48:00 16:48:00 Encounter Reji [facility] 2022-01-07 2022-01-18 Hospital Annalee Mckinley [facility] [id number] 17:48:00 16:48:00 Encounter Reji [facility] 2022-01-07 2022-01-18 Inpatient UR [facility] [id number] [facility] 17:48:00 16:48:00 ANNALEE 2022-01-07 2022-01-[address] [facility] [id number] [facility] 00:[facility] 00:00:00 [facility] 2022-01-07 2022-01-[address] [facility] [id number] [facility] 00:[facility]00 00:00:00 [facility] 2022-01-02 2022-01-02 [facility] [id number] [facility] 00:00:00 00:00:00 ALANNAH durand [facility] 2021-09-06 2021-09-16 [facility] Derian Trinidad Reza 1.2.840.1 10 [id number] Methodi 14:46:00 18:55:00 Encounter Corrine Osuna 15817.1.[address] 3.430.2.7 Hospit a .3.316465 l .8 2021-09-13 2021-09-13 Anesthesia Natasha, 1.2.840.1 [id number] Methodi 14:58:00 15:19:00 Event Edwin 97281.1.[address] [place] 3.430.2.7 Hospit a .3.316303 l .8 2021-09-13 2021-09-13 Surgery John, 1.2.840.1 [id number] Methodi 14:22:00 14:27:[address] Ongeri 3.430.2.7 Hospit a .3.049987 l .8 2021-09-06 2021-09-06 Travel 1.2.840.1 1.2.292.649 [id number] Methodi 00:00:00 00:00:[address] 3.430.2.7 0.2.7.3.698 Ho spita .3.192391 084.8 l .8 2021-07-31 2021-08-13 Hospital Tammy Dumont 1.2.840.1 [id number] Methodi 04:12:00 19:46:00 Encounter Edwin Ayers 41684.1.[address] Tasneem Ellison 3.430.2.7 [facility]e .3.912629 l .8 2021-08-12 2021-08-12 Anesthesia Leodan Rebolledo 1.2.840.1 [id number] Methodi 18:09:00 19:38:[address] 3.430.2.7 Hospit a .3.773952 l .8 2021-08-12 2021-08-12 Surgery Ru, 1.2.840.1 [id number] Methodi 17:35:00 18:50:[address] 3.430.2.7 Hospit a .3.270881 l .8 2021-08-05 2021-08-05 Anesthesia Andre Navarro 1.2.840.1 [id number] Methodi 15:12:00 16:16:00 Event Grazyna Martinez 24684.1.[address] 3.430.2.7 Hospit a .3.111978 l .8 2021-08-05 2021-08-05 Surgery Abbie, 1.2.840.1 [id number] 8005 Methodi 15:20:00 16:05:[address] 3.430.2.7 Hospit a .3.968218 l .8 2021-08-02 2021-08-02 Documentat Jessica, 1.2.840.1 [id number] Methodi 00:00:00 00:00:00 ion Unknown 14570.1.[address] 3.430.2.7 Hospit a .3.071614 l .8 2021-07-14 2021-07-14 Transcribe Vanda 1.2.840.1 [id number] Methodi 00:00:00 00:00:00 Orders , Zulema 54053.1.[address] 3.430.2.7 Hospit a .3.631118 l .8 2021-06-10 2021-06-10 Clinical 1.2.840.1 [id number] Methodi 15:45:00 15:58:[address] 3.430.2.7 Hospit a .3.251880 l .8 2021-06-10 2021-06-10 Travel 1.2.840.1 1.2.639.084 [id number] [id number] Methodi 00:00:00 00:00:[address] 3.430.2.7 0.2.7.3.698 Ho spita .3.837505 084.8 l .8 2021-06-09 2021-06-09 Outpatient Clydeanatoly_T VFP VFP [id number] 02-08 [facility] 11:40:00 11:40:00 [id number] Family Practic e 2021-06-01 2021-06-04 Outpatient ALEXANDRO, [facility] [id number] [place] 00:00:00 00:00:[address] MAHA [address] 2020-08-05 2020-08-05 Outpatient VANDA [facility] [id number] [place] 00:00:00 00:00:00 , ZULEMA [address] 2020-07-09 2020-07-09 Outpatient [facility] [id number] [place] 00:00:00 00:00:[address] 2020-06-18 2020-06-18 Outpatient [facility] [id number] [place] 00:00:00 00:00:[address] 2020-04-05 2020-04-06 Outpatient AL-LAHIQ, [place] [address] [id number] [place] 00:00:00 00:00:00 MAHA 881 Method i 2020-03-22 2020-03-25 Inpatient AL-LAHIQ, [place] [address] [id number] 6459 [place] 00:00:00 00:00:00 MAHA 725 Method i 2020-02-27 2020-02-27 Outpatient BHUMI, [facility] [id number] 2471 [place] 00:00:00 00:00:00 DAVID 385 Method i 2020-02-17 2020-02-18 Outpatient AL-LAHIQ, [place] [address] [id number] 71168 [place] 00:00:00 00:00:00 MAHA 408 Method i 2020-01-17 2020-01-18 Emergency JOSE A, [place] [address] [id number] 46 [place] 00:00:00 00:00:00 SHAKEEL 668 Method i 2019-10-23 2019-10-26 Inpatient AL-LAHIQ, [facility] [id number] 8232 [place] 00:00:00 00:00:00 MAHA 153 Method i 2019-08-05 2019-08-05 Outpatient FRIEND-MICHAEL [facility] [id number] [place] 00:00:00 00:00:00 , ZULEMA 952 Method i 2019-07-10 2019-07-12 Inpatient AL-LAHIQ, [facility] [id number] [place] 00:00:00 00:00:00 MAHA 402 Method i 2019-03-27 2019-03-30 Outpatient TEQWIMUAH, [facility] 2100 [id number] [place] 00:00:00 00:00:00 SARAI 954 Method i Results Test Description Test Time Test Comments Results Result Comments Source POC-Glucose meter 2022-01-18 12:22:13 Test Item Value Reference Range Interpretation Comme [facility] POC-Glucose Meter (test code = 102 mg/dL 70-110 : TESTED AT [facility] [address] [place] [address]) [facility] [address]: Welding Equipment Repairer/Techni faviola ID = [id number] for Jessica Maxisamar sanchez Lab Interpretation (test code = Normal 71243-4) [facility] [id number] 12:22:13 Test Item Value Reference Range Interpretation Comments POC-Glucose Meter (test 102 mg/dL 70-110 : TE STED AT [facility] code = 1538) [address] [place] [address]: Welding Equipment Repairer/Techni faviola ID = [id number] for Yelling, Yoland a Lab Interpretation (test Normal code = 08507-4) [facility] [id number] 12:22:13 Test Item Value Reference Range Interpretation Comments POC-Glucose Meter (test 102 mg/dL 70-110 : TE STED AT [facility] code = 1538) [address] [place] [address]: Welding Equipment Repairer/Techni faviola ID = [id number] for Yelling, Yoland a Lab Interpretation (test Normal code = 67950-2) [facility]-Glucose [id number] 12:22:13 Test Item Value Reference Range Interpretation Comments POC-Glucose Meter (test 102 mg/dL 70-110 : TE STED AT [facility] code = 1538) [address] [place] [address]: Welding Equipment Repairer/Techni faviola ID = [id number] for Yelling, Yoland a Lab Interpretation (test Normal code = 70332-2) [facility]-Glucose [id number] 12:22:13 Test Item Value Reference Range Interpretation Comments POC-Glucose Meter (test 102 mg/dL 70-110 : TE STED AT [facility] code = 1538) [address] [place] [address]: Welding Equipment Repairer/Techni faviola ID = [id number] for Yelling, Yoland a Lab Interpretation (test Normal code = 80405-9) [facility] [id number] 12:22:13 Test Item Value Reference Range Interpretation Comments POC-Glucose Meter (test 102 mg/dL 70-110 : TE STED AT [facility] code = 1538) [address] [place] [address]: Welding Equipment Repairer/Techni faviola ID = [id number] for Yelling, Yoland a Lab Interpretation (test Normal code = 56986-3) [facility]-GLUCOSE [id number] 12:22:13 Test Item Value Reference Range Interpretation Comments POC-GLUCOSE METER 102 mg/dL 70-110 : TESTED A T [facility] [address]17 (BEAKER) (test code [address], = 1538) [facility] [place] [address]: Welding Equipment Repairer/Techni faviola ID = [id number] for Zuri Maharaj BASIC METABOLIC [id number] 06:40:34 Test Item Value Reference Range Interpretation [...] not appl icable for dialysis patien ts Welding Equipment Repairer ID - [id number] ID - [id number] ID - [id number] ID - [id number] ID - [id number] ID - [id number] ID - [id number] ID - [id number] ID - VMERKVQBY924Wmeovgcb ID - [id number] ID - [id number] ID - [id number] ID - [id number]-ZBLCUGY [id number] 19:58:07 Test Item Value Reference Range Interpretation Comments POC-GLUCOSE METER 126 mg/dL 70-110 H : [facility] ([facility]ER) (test code [facility], = 1538) [place] [address]2588: Welding Equipment Repairer/Techni faviola ID = [id number] for Ina Agrawal POCT-GLUCOSE [id number] 17:18:36 Test Item Value Reference Range Interpretation Comments POC-GLUCOSE METER 128 mg/dL 70-110 H : Notified RN[facility]: [facility] (test code AT [facility] [address] = 1538) [place] [address]: Welding Equipment Repairer/Techni faviola ID = [id number] for Marianok er, Nikitaben POCT-GLUCOSE [id number] 12:27:16 Test Item Value Reference Range Interpretation Comments POC-GLUCOSE METER 141 mg/dL 70-110 H : [facility] 1317 (BEAKER) (test code [facility], = 1538) [place] [address]2588: Welding Equipment Repairer/Techni faviola ID = [id number] for Thak er, Nikitaben POCT-GLUCOSE [id number] 08:42:44 Test Item Value Reference Range Interpretation Comments POC-GLUCOSE METER 152 mg/dL 70-110 H : Notified RN/MD: TESTED (BEAKER) (test code AT [facility] [address] = 1538) [place] [address]: Welding Equipment Repairer/Techni faviola ID = [id number] for Thak er, Nikitaben BASIC METABOLIC [id number] 05:53:56 Test Item Value Reference Range Interpretation [...] eGFR (test code = mL/min/1.73 values Stage D escription 1092) sq m Result G1 Dulce l [...] not appl icable for dialysis patien ts Welding Equipment Repairer ID - [id number] ID - [id number] ID - [id number] ID - [id number] ID - [id number] ID - IYYQUIRMW537Ubakhccs ID - [id number] ID - [id number] ID - [id number] ID - LHLHJUZKQ980Ntooqzxd ID - QIUMHPOFS263Jcyftmom ID - RNTFOJFSE116Lgokgcgv ID - [id number]-RZHWZTS [id number] 20:28:58 Test Item Value Reference Range Interpretation Comments POC-GLUCOSE METER 184 mg/dL 70-110 H : TESTED A T [facility] [address] (BEAKER) (test code [address], = 1538) [place] [address]: Welding Equipment Repairer/Techni faviola ID = [id number] for Ina Agrawal POCT-GLUCOSE [id number] 15:57:54 Test Item Value Reference Range Interpretation Comments POC-GLUCOSE METER 187 mg/dL 70-110 H : TESTED A T [facility] [address] (BEAKER) (test code [address], = 1538) [place] [address]: Welding Equipment Repairer/Techni faviola ID = [id number] for Aileen Loja POCT-GLUCOSE [id number] 11:57:54 Test Item Value Reference Range Interpretation Comments POC-GLUCOSE METER 163 mg/dL 70-110 H : TESTED A T [facility] [address] (BEAKER) (test code [address], = 1538) [place] [address]: Welding Equipment Repairer/Techni faviola ID = [id number] for Aileen Loja POCT-GLUCOSE [id number] 07:59:00 Test Item Value Reference Range Interpretation Comments POC-GLUCOSE METER 129 mg/dL 70-110 H : TESTED A T [facility] [address] (BEAKER) (test code [address], = 1538) [place] [address]: Welding Equipment Repairer/Techni faviola ID = [id number] for Aileen Loja POCT-GLUCOSE [id number] 20:24:24 Test Item Value Reference Range Interpretation Comments POC-GLUCOSE METER 185 mg/dL 70-110 H : TESTED A T [facility] [address] (BEAKER) (test code [address], = 1538) [place] [address]: Welding Equipment Repairer/Techni fvaiola ID = [id number] for Agustin Patel POCT-GLUCOSE [id number] 18:05:34 Test Item Value Reference Range Interpretation Comments POC-GLUCOSE METER 126 mg/dL 70-110 H : TESTED A T [facility] [address]17 (BEAKER) (test code [address], = 1538) [place] [address]: Welding Equipment Repairer/Techni faviola ID = [id number] for Consuelo Leija POCT-GLUCOSE [id number] 12:43:19 Test Item Value Reference Range Interpretation Comments POC-GLUCOSE METER 154 mg/dL 70-110 H : TESTED A T [facility] [address]17 (BEAKER) (test code [address], = 1538) [place] [address]: Welding Equipment Repairer/Techni faviola ID = [id number] for Consuelo Leija POCT-GLUCOSE [id number] 07:44:17 Test Item Value Reference Range Interpretation Comments POC-GLUCOSE METER 142 mg/dL 70-110 H : TESTED A T [facility] [address]17 (BEAKER) (test code [address], = 1538) [place] [address]: Welding Equipment Repairer/Techni faviola ID = [id number] for Consuelo Leija BASIC METABOLIC [id number] 05:55:22 Test Item Value Reference Range Interpretation [...] not appl icable for dialysis patien ts Welding Equipment Repairer ID - LITOOperator ID - LITOOperator ID - LITOOperator ID - LITOOperator ID - LITOOperator ID - LITOOperator ID - LITOOperator ID - LITOOperator ID - LITOOperator ID - LITOOperator ID - LITOOperator ID - LITOOperator ID - MARTÍN POCT-GLUCOSE [id number] 20:53:58 Test Item Value Reference Range Interpretation Comments POC-GLUCOSE METER 194 mg/dL 70-110 H : TESTED A T [facility] [address]17 (BEAKER) (test code [address], = 1538) [place] [address]: Welding Equipment Repairer/Techni faviola ID = [id number] for Aileen Loja POCT-GLUCOSE [id number] 15:49:19 Test Item Value Reference Range Interpretation Comments POC-GLUCOSE METER 171 mg/dL 70-110 H : TESTED A T [facility] [address]17 (BEAKER) (test code [address], = 1538) [facility] 77 [address]: Welding Equipment Repairer/Techni faviola ID = [id number] for Aileen Loja SARS-CoV2/RT-PCR (Asymptomatic ONLY)2022-01-14 15:42:35 Test Item Value Reference Interpretation Comments Range SARS-COV2/RT-PCR Negative Negative The SARS-Co V-2 (test code = target nucleic 19876-7) acids are not detected in thi s [...] revoked sooner. Fact Sheet for Healthcare Providers: https://www.Xingyun.cn/Documents/Xp ert%20Xpress%20SAR S%20CoV-2/Fact%20S heets/302-7122%20S ARS-COV-2%20HEALTH CARE%20PROVIDERS%2 0FACT%20SHEET.pdf Fact Sheet for Healthcare Patients: https://www.Xingyun.cn/Documents/Xp ert%20Xpress%20SAR S%20CoV-2/Fact%20S heets/302-3801%20S ARS-COV-2%20PATIEN T%20FACT%20SHEET.p df Lab Interpretation Normal (test code = 89985-7) [facility]-14 15:42:35 Test Item Value Reference Interpretation Comments Range SARS-COV2/RT-PCR Negative Negative The SARS-Co V-2 (test code = target nucleic 76725-5) acids are not detected in thi s [...] revoked sooner. Fact Sheet for Healthcare Providers: https://www.Xingyun.cn/Documents/Xp ert%20Xpress%20SAR S%20CoV-2/Fact%20S heets/302-3802%20S ARS-COV-2%20HEALTH CARE%20PROVIDERS%2 0FACT%20SHEET.pdf Fact Sheet for Healthcare Patients: https://www.Xingyun.cn/Documents/Xp ert%20Xpress%20SAR S%20CoV-2/Fact%20S heets/302-3801%20S ARS-COV-2%20PATIEN T%20FACT%20SHEET.p df Lab Interpretation Normal (test code = 14093-4) [facility]2022-01-14 15:42:35 Test Item Value Reference Interpretation Comments Range SARS-COV2/RT-PCR Negative Negative The SARS-Co V-2 (test code = target nucleic 04650-1) acids are not detected in thi s [...] revoked sooner. Fact Sheet for Healthcare Providers: https://www.Xingyun.cn/Documents/Xp ert%20Xpress%20SAR S%20CoV-2/Fact%20S heets/302-3802%20S ARS-COV-2%20HEALTH CARE%20PROVIDERS%2 0FACT%20SHEET.pdf Fact Sheet for Healthcare Patients: https://www.Xingyun.cn/Documents/Xp ert%20Xpress%20SAR S%20CoV-2/Fact%20S heets/302-3801%20S ARS-COV-2%20PATIEN T%20FACT%20SHEET.p df Lab Interpretation Normal (test code = 04377-4) [facility]2022-01-14 15:42:35 Test Item Value Reference Interpretation Comments Range SARS-COV2/RT-PCR Negative Negative The SARS-Co V-2 (test code = target nucleic 79799-4) acids are not detected in thi s [...] revoked sooner. Fact Sheet for Healthcare Providers: https://www.Xingyun.cn/Documents/Xp ert%20Xpress%20SAR S%20CoV-2/Fact%20S heets/302-0284%20S ARS-COV-2%20HEALTH CARE%20PROVIDERS%2 0FACT%20SHEET.pdf Fact Sheet for Healthcare Patients: https://www.Xingyun.cn/Documents/Xp ert%20Xpress%20SAR S%20CoV-2/Fact%20S heets/302-0054%20S ARS-COV-2%20PATIEN T%20FACT%20SHEET.p df Lab Interpretation Normal (test code = 57846-7) [facility]2022-01-14 15:42:35 Test Item Value Reference Interpretation Comments Range SARS-COV2/RT-PCR Negative Negative The SARS-Co V-2 (test code = target nucleic 46880-9) acids are not detected in thi s [...] revoked sooner. Fact Sheet for Healthcare Providers: https://www.Xingyun.cn/Documents/Xp ert%20Xpress%20SAR S%20CoV-2/Fact%20S heets/302-3802%20S ARS-COV-2%20HEALTH CARE%20PROVIDERS%2 0FACT%20SHEET.pdf Fact Sheet for Healthcare Patients: https://www.Xingyun.cn/Documents/Xp ert%20Xpress%20SAR S%20CoV-2/Fact%20S heets/302-3801%20S ARS-COV-2%20PATIEN T%20FACT%20SHEET.p df Lab Interpretation Normal (test code = 61256-6) [facility]2022-01-14 15:42:35 Test Item Value Reference Interpretation Comments Range SARS-COV2/RT-PCR Negative Negative The SARS-Co V-2 (test code = target nucleic 16232-8) acids are not detected in thi s [...] revoked sooner. Fact Sheet for Healthcare Providers: https://www.Xingyun.cn/Documents/Xp ert%20Xpress%20SAR S%20CoV-2/Fact%20S heets/302-3802%20S ARS-COV-2%20HEALTH CARE%20PROVIDERS%2 0FACT%20SHEET.pdf Fact Sheet for Healthcare Patients: https://www.Xingyun.cn/Documents/Xp ert%20Xpress%20SAR S%20CoV-2/Fact%20S heets/302-3801%20S ARS-COV-2%20PATIEN T%20FACT%20SHEET.p df Lab Interpretation Normal (test code = 34386-2) [facility])2022-01-14 15:42:35 Test Item Value Reference Range Interpretation Comments SARS-COV2/RT-PCR Negative Negative The SARS-Co V-2 target (test code = nucleic acids a re not 6086310) detected in thi s specimen. Negative result [...] individuals suspected of CO VID-19 by their [facility]. This test has been authorized [...] revoked sooner. Fact Sheet for Healthcare Providers: https://www.bMenu[employer] m/Documents/Xpert%20Xpress%20SARS%20CoV-2/Fact%20Sheets/302-3802%19OPQD-BEU-4%20 HEALTHCARE%20PROVIDERS%20FACT%20SHEET.pdf Fact Sheet for Healthcare Patients: https://www.Grabbit/Documents/Xpert%20Xp ress%20SARS%20CoV-2/Fact%20Sheets/302-3801%26ZFWI-OQD-2%20PATIENT%20FACT%20SHEET .pdfRAD, CHEST, 1 VIEW, NON [id number] 15:02:00Reason for exam:- >SOBShould this be performed at the bedside?->Yes [facility] 1950 Sex: FFINAL [...] [place] Verified Date/Time: 01/14/2022 15:02:16 Reading Location: [facility] Radiology Reading Room POCT-GLUCOSE [id number] 12:14:41 Test Item Value Reference Range Interpretation Comments POC-GLUCOSE METER 134 mg/dL 70-110 H : TESTED A T [facility] 1317 (BEAKER) (test code [address], = 1538) [facility] [address]: Welding Equipment Repairer/Techni faviola ID = [id number] for Ej vergaraAileen, CENTRAL VENOUS CATH PLCMT (JUG/FEM) > 5 Y.O. WITH [id number] 11:25:00Reason for exam:->Non tunneled central line placement [facility] CENTERName: [address] : 1950 Sex: FFINAL [...] Radiationdose (Ka,r): 2 mGy Signed: Carl Link [facility] Verified Date/Time: 01/14/2022 11:25:42 Reading Location: [facility] Radiology Reading Room POCT-GLUCOSE [id number] 08:34:59 Test Item Value Reference Range Interpretation Comments POC-GLUCOSE METER 147 mg/dL 70-110 H : TESTED A T [facility] 1317 (BEAKER) (test code [address], = 1538) [facility] [address]: Welding Equipment Repairer/Techni faviola ID = [id number] for Aileen Loja BASIC METABOLIC [id number] 06:37:03 Test Item Value Reference Range Interpretation [...] not appl icable for dialysis patien ts Welding Equipment Repairer ID - LITOOperator ID - LITOOperator ID [...] 0-0 (BEAKER) (test code = 413) POCT-GLUCOSE [id number] 19:50:36 Test Item Value Reference Range Interpretation Comments POC-GLUCOSE METER 199 mg/dL 70-110 H : TESTED A T [facility] [address]17 (BEAKER) (test code [address], = 1538) [place] [address]: Welding Equipment Repairer/Techni faviola ID = [id number] for Ina Agrawal POCT-GLUCOSE [id number] 16:52:12 Test Item Value Reference Range Interpretation Comments POC-GLUCOSE METER 150 mg/dL 70-110 H : TESTED A T [facility] [address]17 (BEAKER) (test code [address], = 1538) [place] [address]: Welding Equipment Repairer/Techni faviola ID = [id number] for Aileen Loja POCT-GLUCOSE [id number] 14:05:10 Test Item Value Reference Range Interpretation Comments POC-GLUCOSE METER 122 mg/dL 70-110 H : TESTED A T [facility] [address]17 (BEAKER) (test code [address], = 1538) [place] [address]: Welding Equipment Repairer/Techni faviola ID = [id number] for Nancy Douglass Blood gas, [id number] 09:06:33 Test Item Value Reference Range Interpretation Comments pH, Arterial (test code 7.45 7.35-7.45 = 2744-1) pCO2, Arterial (test 40 See_Comment [Autom ated message] code = 2019-8) The system [employer] generated this result transmit kenneth reference range : 35 - 45 mm Hg. The reference range was not used to interpret this result as normal/abnormal . pO2, Arterial (test 79 See_Comment L [Automa kenneth message] code = 2703-7) The system [employer] generated this result transmit kenneth reference range [...] 21 Lab Interpretation Abnormal (test code = 71925-9) [facility] [id number] 09:06:33 Test Item Value Reference Range Interpretation Comments pH, Arterial (test code 7.45 7.35-7.45 = 2744-1) pCO2, Arterial (test 40 See_Comment [Autom ated message] code = 2018-12) The system [employer] generated this result transmit kenneth reference range : 35 - 45 mm Hg. The reference range was not used to interpret this result as normal/abnormal . pO2, Arterial (test 79 See_Comment L [Automa kenneth message] code = 2703-7) The system [employer] generated this result transmit kenneth reference range [...] 21 Lab Interpretation Abnormal (test code = 43284-2) [facility], [id number] 09:06:33 Test Item Value Reference Range Interpretation Comments pH, Arterial (test code 7.45 7.35-7.45 = 2744-1) pCO2, Arterial (test 40 See_Comment [Autom ated message] code = 2019-) The system [employer] generated this result transmit kenneth reference range : 35 - 45 mm Hg. The reference range was not used to interpret this result as normal/abnormal . pO2, Arterial (test 79 See_Comment L [Automa kenneth message] code = 2703-7) The system [employer] generated this result transmit kenneth reference range [...] 21 Lab Interpretation Abnormal (test code = 88161-5) [facility], [id number] 09:06:33 Test Item Value Reference Range Interpretation Comments pH, Arterial (test code 7.45 7.35-7.45 = 2744-1) pCO2, Arterial (test 40 See_Comment [Autom ated message] code = 2018-12) The system [employer] generated this result transmit kenneth reference range : 35 - 45 mm Hg. The reference range was not used to interpret this result as normal/abnormal . pO2, Arterial (test 79 See_Comment L [Automa kenneth message] code = 2703-7) The system [employer] generated this result transmit kenneth reference range [...] 21 Lab Interpretation Abnormal (test code = 04660-6) [facility], [id number] 09:06:33 Test Item Value Reference Range Interpretation Comments pH, Arterial (test code 7.45 7.35-7.45 = 2744-1) pCO2, Arterial (test 40 See_Comment [Autom ated message] code = 2019) The system [employer] generated this result transmit kenneth reference range : 35 - 45 mm Hg. The reference range was not used to interpret this result as normal/abnormal . pO2, Arterial (test 79 See_Comment L [Automa kenneth message] code = 2703-7) The system [employer] generated this result transmit kenneth reference range [...] 21 Lab Interpretation Abnormal (test code = 07977-9) [facility], [id number] 09:06:33 Test Item Value Reference Range Interpretation Comments pH, Arterial (test code 7.45 7.35-7.45 = 2744-1) pCO2, Arterial (test 40 See_Comment [Autom ated message] code = 2019-8) The system [employer] generated this result transmit kenneth reference range : 35 - 45 mm Hg. The reference range was not used to interpret this result as normal/abnormal . pO2, Arterial (test 79 See_Comment L [Automa kenneth message] code = 2703-7) The system [employer] generated this result transmit kenneth reference range [...] 21 Lab Interpretation Abnormal (test code = 38268-5) [facility], [id number] 09:06:33 Test Item Value Reference Range Interpretation [...] (BEAKER) (test code = 1819) 21.0 POCT-GLUCOSE [id number] 08:36:44 Test Item Value Reference Range Interpretation Comments POC-GLUCOSE METER 132 mg/dL 70-110 H : TESTED A T [facility] [address]17 (BEAKER) (test code [address], = 1538) [facility] [address]: Welding Equipment Repairer/Techni faviola ID = [id number] for Aileen Loja TSH/FREE T4 IF [id number] 08:14:31 Test Item Value Reference Range Interpretation Comments THYROID STIMULATING HORMONE 1.790 uIU/mL 0.350-5.500 (BEAKER) (test code = 772) Welding Equipment Repairer ID - DSENSONCOMPREHENSIVE METABOLIC [id number] 08:04:08 Test Item Value Reference Range Interpretation [...] H (LORENAAKER) (test code = 652) CALCIUM (BEAKER) 9.1 [...] not appl icable for dialysis patien ts Welding Equipment Repairer ID - DSENSONOperator ID - DSENSONOperator ID - DSENSONOperator ID - DSENSONOperator ID - DSENSONOperator ID - DSENSONOperator ID - DSENSONOperator ID - DSENSONOperator ID - DSENSONOperator ID - DSENSONOperator ID - DSENSONOperator ID - DSENSONOperator ID - DSENSONOperator ID - DSENSONOperatorID - DSENSONOperator ID - DSENSONOperator ID - DSENSONOperator ID - DSENSONOperator ID - DSENSONTROPONIN [id number] 08:03:10 Test Item Value Reference Range Interpretation [...] failure, acidosis, acute neurological disease, and persistent tachyarrhythmia.Welding Equipment Repairer ID - DSENSONCT, BRAIN, WITHOUT [id number] 07:49:00 [facility] 1950 Sex: FFINAL [...] recommended for further characterization. Signed: Suzi Askew [facility] Verified Date/Time: 01/13/2022 07:49:20 CBC W/PLT COUNT & AUTO [id number] 07:39:37 Test Item Value Reference Range Interpretation [...] PERCENT (BEAKER) (test code = 2801) POCT-GLUCOSE [id number] 07:15:45 Test Item Value Reference Range Interpretation Comments POC-GLUCOSE METER 127 mg/dL 70-110 H : TESTED A T [facility] [address] (BEAKER) (test code [address], = 1538) [place] [address]: Welding Equipment Repairer/Techni faviola ID = [id number] for Aileen Loja POCT-GLUCOSE [id number] 06:32:48 Test Item Value Reference Range Interpretation Comments POC-GLUCOSE METER 133 mg/dL 70-110 H : TESTED A T [facility] [address] (BEAKER) (test code [facility] [address], = 1538) [place] [address]: Welding Equipment Repairer/Techni faviola ID = [id number] for Mekhi bi, [place] POCT-GLUCOSE [id number] 21:05:05 Test Item Value Reference Range Interpretation Comments POC-GLUCOSE METER 195 mg/dL 70-110 H : TESTED A T [facility] [address] (BEAKER) (test code [address], = 1538) [place] [address]: Welding Equipment Repairer/Techni faviola ID = [id number] for Mekhi bi, [place] POCT-GLUCOSE [id number] 19:32:35 Test Item Value Reference Range Interpretation Comments POC-GLUCOSE METER 180 mg/dL 70-110 H : TESTED A T [facility] [address] (BEAKER) (test code [address], = 1538) [place] [address]: Welding Equipment Repairer/Techni faviola ID = [id number] for Mcalpin ins, Odalys POCT-GLUCOSE [id number] 19:30:16 Test Item Value Reference Range Interpretation Comments POC-GLUCOSE METER 50 mg/dL 70-110 L : TESTED A T [facility] [address] (BEAKER) (test code = [address], 153) [place] [address]: Welding Equipment Repairer/Techni faviola ID = [id number] for Mcalpin ins, Odalys POCT-GLUCOSE [id number] 18:09:32 Test Item Value Reference Range Interpretation Comments POC-GLUCOSE METER 63 mg/dL 70-110 L : TESTED A T [facility] [address] (BEAKER) (test code = [address], 153) [place] [address]: Welding Equipment Repairer/Techni faviola ID = [id number] for Will iams, Robe ANG, TUNNELED CATHETER [id number] 17:04:00Reason for exam:->dialysis catheter with poor flows on dialysis, very positional - please place tunneled dialysis catheter in a new position. [facility] CENTERName: [address] : 1950 Sex: FFINAL REPORT Tunneled dialysis catheter exchange, 01/12/2022. History: Renal failure, poor flow through the existing catheter. Modality: Sonography and fluoroscopy. Sedation: None. Photographer Portrait: Mitzy. Loan Broker: None. Approach: Internal jugular vein - right. [...] scrub solution for skin preparation, cap, mask, sterilegloves, sterile gown, and sterile full body drape. [...] removed and a new 23 cm 15.5 Omani Duraflow 2 catheter was advanced through the [...] MDReport Verified Date/Time: 01/12/2022 17:04:33 Reading Location: [facility] Reading Room POCT-GLUCOSE [id number] 12:20:13 Test Item Value Reference Range Interpretation Comments POC-GLUCOSE METER 107 mg/dL 70-110 : TESTED A T [facility] [address] (BEAKER) (test code [address], = 1538) [place] [address]: Welding Equipment Repairer/Techni faviola ID = [id number] for Will iams, Robe POCT-GLUCOSE [id number] 09:01:23 Test Item Value Reference Range Interpretation Comments POC-GLUCOSE METER 118 mg/dL 70-110 H : TESTED A T [facility] [address] (BEAKER) (test code [address], = 1538) [place] [address]: Welding Equipment Repairer/Techni faviola ID = [id number] for Will iams, Robe CBC W/PLT COUNT & AUTO [id number] 06:58:41 Test Item Value Reference Range Interpretation [...] code = 1+ few 961) BASIC METABOLIC [id number] 06:30:57 Test Item Value Reference Range Interpretation [...] not appl icable for dialysis patien ts Welding Equipment Repairer ID - LITOOperator ID - LITOOperator ID - LITOOperator ID - LITOOperator ID - LITOOperator ID - LITOOperator ID - LITOOperator ID - LITOOperator ID - LITOOperator ID - [id number] 06:19:11 Test Item Value Reference Range Interpretation Comments MAGNESIUM (BEAKER) (test code = 1.9 mg/dL 1.5-3.0 627) Welding Equipment Repairer ID - LITOOperator ID - LITOOperator ID - LITOOperator ID - MARTÍN [id number] 06:16:11 Test Item Value Reference Range Interpretation Comments PHOSPHORUS (BEAKER) (test code = 3.4 mg/dL 2.5-4.5 604) Welding Equipment Repairer ID - LITOPROTHROMBIN TIME/[id number] 06:03:04 Test Item Value Reference Range Interpretation Comments PROTIME (BEAKER) 12.4 seconds 9.3-12.0 H Final Infor mation (test code = 759) (Auto Outp ut) INR (BEAKER) (test 1.14 See_Comment Final Inf ormation code = 370) (Auto Output) [Automated mess age] The system whic h generated this result transmitted ref erence range: <=5.90. The reference range was not used to int erpret this result as normal/abnormal . RECOMMENDED COUMADIN/WARFARIN INR THERAPY RANGESSTANDARD DOSE: 2.0 - 3.0 Includes: PROPHYLAXIS for venous thrombosis, systemic embolization; TREATMENT for venous thrombosis and/or pulmonary embolus.HIGH RISK: Target INR is 2.5-3.5 for patients with mechanical heart valves.[id number] 06:03:04 Test Item Value Reference Range Interpretation Comments PARTIAL THROMBOPLASTIN 29.5 seconds 23.0-35.0 Final Information TIME (BEAKER) (test (Auto Ou tput) code = 760) POCT-GLUCOSE [id number] 20:00:47 Test Item Value Reference Range Interpretation Comments POC-GLUCOSE METER 172 mg/dL 70-110 H : TESTED A T [facility] [address] (BEAKER) (test code [address], = 1538) [place] [address]: Welding Equipment Repairer/Techni faviola ID = [id number] for Will iams, Ina POCT-GLUCOSE [id number] 18:09:30 Test Item Value Reference Range Interpretation Comments POC-GLUCOSE METER 121 mg/dL 70-110 H : TESTED A T [facility] [address] (BEAKER) (test code [address], = 1538) [place] [address]: Welding Equipment Repairer/Techni faviola ID = [id number] for Will iams, Robe POCT-GLUCOSE [id number] 12:48:21 Test Item Value Reference Range Interpretation Comments POC-GLUCOSE METER 102 mg/dL 70-110 : TESTED A T [facility] [address] (BEAKER) (test code [address], = 1538) [place] [address]: Welding Equipment Repairer/Techni faviola ID = [id number] for Avelino h Kerline POCT-GLUCOSE [id number] 08:00:17 Test Item Value Reference Range Interpretation Comments POC-GLUCOSE METER 119 mg/dL 70-110 H : TESTED A T [facility] [address] (BEAKER) (test code [address], = 1538) [place] [address]: Welding Equipment Repairer/Techni faviola ID = [id number] for Will iams, Robe POCT-GLUCOSE [id number] 21:28:11 Test Item Value Reference Range Interpretation Comments POC-GLUCOSE METER 227 mg/dL 70-110 H : TESTED A T [facility] [address]17 (BEAKER) (test code [address], = 1538) [facility] [id number] 478: Welding Equipment Repairer/Techni faviola ID = [id number] for Libia Pop POCT-GLUCOSE [id number] 15:35:44 Test Item Value Reference Range Interpretation Comments POC-GLUCOSE METER 168 mg/dL 70-110 H : TESTED A T [address] 1317 (BEAKER) (test code [address], = 1538) [facility] [address]: Welding Equipment Repairer/Techni faviola ID = [id number] for Maribel Jimenez, GURMEET CVC/TUNNELED W/O OAAM3230-07-18 11:59:00 [facility] : 1950 Sex: FFINAL REPORT PROCEDURE: Tunneled [...] a permanent image was stored. Catheter size (Omani): 15.5Catheter flush: Heparin (100 units/mL) Abbie sureThe [...] MDReport Verified Date/Time: 01/10/2022 11:59:48 Reading Location: [facility] Radiology Reading Room POCT-GLUCOSE [id number] 11:32:33 Test Item Value Reference Range Interpretation Comments POC-GLUCOSE METER 105 mg/dL 70-110 : TESTED A T [address] (BEAKER) (test code [address], = 1538) [facility] [place] [address]: Welding Equipment Repairer/Techni faviola ID = [id number] for Maribel Jimenez BASIC METABOLIC [id number] 04:51:32 Test Item Value Reference Range Interpretation [...] not appl icable for dialysis patien ts Welding Equipment Repairer ID - LITOOperator ID - LITOOperator ID - LITOOperator ID - LITOOperator ID - LITOOperator ID - LITOOperator ID - LITOOperator ID - LITOOperator ID - LITOOperator ID - [id number] 04:50:58 Test Item Value Reference Range Interpretation Comments MAGNESIUM (BEAKER) (test code = 2.0 mg/dL 1.5-3.0 627) Welding Equipment Repairer ID - LITOOperator ID - LITOOperator ID - LITOOperator ID - MARTÍN [id number] 04:48:19 Test Item Value Reference Range Interpretation Comments PHOSPHORUS (BEAKER) (test code = 3.9 mg/dL 2.5-4.5 604) Welding Equipment Repairer ID - [id number] 04:44:00 Test Item Value Reference Range Interpretation Comments PARTIAL THROMBOPLASTIN 51.7 seconds 23.0-35.0 H Final Information TIME (BEAKER) (test (Auto Ou tput) code = 760) CBC W/PLT COUNT & AUTO [id number] 04:24:30 Test Item Value Reference Range Interpretation [...] PERCENT (BEAKER) (test code = 2801) POCT-GLUCOSE [id number] 21:26:47 Test Item Value Reference Range Interpretation Comments POC-GLUCOSE METER 127 mg/dL 70-110 H : TESTED A T [address] (BEAKER) (test code [address], = 1538) [place] [address]: Welding Equipment Repairer/Techni faviola ID = [id number] for Libia Pop [id number] 20:08:11 Test Item Value Reference Range Interpretation Comments PARTIAL THROMBOPLASTIN 41.3 seconds 23.0-35.0 H Final Information TIME (BEAKER) (test (Auto Ou tput) code = 760) POCT-GLUCOSE [id number] 17:14:06 Test Item Value Reference Range Interpretation Comments POC-GLUCOSE METER 154 mg/dL 70-110 H : TESTED A T [address] (BEAKER) (test code [address], = 1538) [place] [address]: Welding Equipment Repairer/Techni faviola ID = [id number] for Aileen Loja POCT-GLUCOSE [id number] 11:55:38 Test Item Value Reference Range Interpretation Comments POC-GLUCOSE METER 153 mg/dL 70-110 H : TESTED A T [address] (BEAKER) (test code [address], = 1538) [place] [id number]: Welding Equipment Repairer/Techni faviola ID = [id number] for Maribel Jimenez HEPATITIS B SURFACE [id number] 11:29:52 Test Item Value Reference Range Interpretation Comments HEPATITIS B SURFACE ANTIBODY 53.8 mIU/mL <8.0 H (BEAKER) (test code = 647) Welding Equipment Repairer ID - [id number] 10:04:36 Test Item Value Reference Range Interpretation Comments PARTIAL THROMBOPLASTIN 36.3 seconds 23.0-35.0 H Final Information TIME (BEAKER) (test (Auto Ou tput) code = 760) POCT-GLUCOSE [id number] 07:31:03 Test Item Value Reference Range Interpretation Comments POC-GLUCOSE METER 111 mg/dL 70-110 H : TESTED A T [address] (BEAKER) (test code [address], = 1538) [facility] [place] [address]: Welding Equipment Repairer/Techni faviola ID = [id number] for Maribel Jimenez [id number] 06:13:46 Test Item Value Reference Range Interpretation Comments MAGNESIUM (BEAKER) (test code = 1.8 mg/dL 1.5-3.0 627) Welding Equipment Repairer ID - [id number] ID - [id number] ID - [id number] ID - [id number] METABOLIC [id number] 06:12:49 Test Item Value Reference Range Interpretation [...] not appl icable for dialysis patien ts Welding Equipment Repairer ID - [id number] ID - [id number] ID - [id number] ID - [id number] ID - [id number] ID - [id number] ID - [id number] ID - [id number] ID - [id number] ID - [id number] 06:10:51 Test Item Value Reference Range Interpretation Comments PHOSPHORUS (BEAKER) (test code = 3.0 mg/dL 2.5-4.5 604) Welding Equipment Repairer ID - [id number] W/PLT COUNT & AUTO [id number] 05:49:35 Test Item Value Reference Range Interpretation [...] PERCENT (BEAKER) (test code = 2801) POCT-GLUCOSE [id number] 05:17:03 Test Item Value Reference Range Interpretation Comments POC-GLUCOSE METER 108 mg/dL 70-110 : TESTED A T [address] (BEAKER) (test code [facility] [address], = 1538) [facility] [place] [address]: Welding Equipment Repairer/Techni faviola ID = [id number] for esperanza Abraham [id number] 01:14:37 Test Item Value Reference Range Interpretation Comments PARTIAL THROMBOPLASTIN 37.5 seconds 23.0-35.0 H Final Information TIME (BEAKER) (test (Auto Ou tput) code = 760) HEPATITIS B SURFACE [id number] 18:36:43 Test Item Value Reference Range Interpretation Comments HEPATITIS B SURFACE ANTIGEN (2) Nonreactive Nonreactive (BEAKER) (test code = 2585) Welding Equipment Repairer ID - [id number]-RIHAYKG [id number] 17:00:29 Test Item Value Reference Range Interpretation Comments POC-GLUCOSE METER 131 mg/dL 70-110 H : TESTED A T [address] (BEAKER) (test code [address], = 1538) [place] [address]: Welding Equipment Repairer/Techni faviola ID = [id number] for Bernie Dubois Migel [id number] 16:38:44 Test Item Value Reference Range Interpretation Comments PARTIAL THROMBOPLASTIN 42.5 seconds 23.0-35.0 H Final Information TIME (BEAKER) (test (Auto Ou tput) code = 760) POCT-GLUCOSE [id number] 12:29:39 Test Item Value Reference Range Interpretation Comments POC-GLUCOSE METER 168 mg/dL 70-110 H : TESTED A T [address] (BEAKER) (test code [address], = 1538) [place] [address]: Welding Equipment Repairer/Techni faviola ID = [id number] for Bernie filomena Migel Dubois POCT-GLUCOSE [id number] 08:10:36 Test Item Value Reference Range Interpretation Comments POC-GLUCOSE METER 136 mg/dL 70-110 H : TESTED A T [address] (BEAKER) (test code [address], = 1538) [place] [address]: Welding Equipment Repairer/Techni faviola ID = [id number] for Bernie Dubois Migel BASIC METABOLIC [id number] 06:18:43 Test Item Value Reference Range Interpretation [...] not appl icable for dialysis patien ts Welding Equipment Repairer ID - LITOOperator ID - LITOOperator ID - LITOOperator ID - LITOOperator ID - LITOOperator ID - LITOOperator ID - LITOOperator ID - LITOOperator ID - LITOOperator ID - [id number] 06:17:29 Test Item Value Reference Range Interpretation Comments MAGNESIUM (BEAKER) (test code = 1.6 mg/dL 1.5-3.0 627) Welding Equipment Repairer ID - LITOOperator ID - LITOOperator ID - LITOOperator ID - MARTÍN HEMOGLOBIN [id number] 06:16:10 Test Item Value Reference Range Interpretation Comments HEMOGLOBIN A1C (BEAKER) (test code = 8.5 % 4.3-6.1 H 368) Welding Equipment Repairer ID - [id number] 06:14:08 Test Item Value Reference Range Interpretation Comments PHOSPHORUS (BEAKER) (test code = 5.0 mg/dL 2.5-4.5 H 604) Welding Equipment Repairer ID - [id number] 05:59:43 Test Item Value Reference Range Interpretation Comments PARTIAL THROMBOPLASTIN 45.4 seconds 23.0-35.0 H Final Information TIME (BEAKER) (test (Auto Ou tput) code = 760) CBC W/PLT COUNT & AUTO [id number] 05:48:29 Test Item Value Reference Range Interpretation [...] H PERCENT (BEAKER) (test code = 2801) [id number] 21:22:07 Test Item Value Reference Range Interpretation Comments PARTIAL THROMBOPLASTIN 26.5 seconds 23.0-35.0 Final Information TIME (AKER) (test (Auto Ou tput) code = 760) POCT-GLUCOSE [id number] 21:12:37 Test Item Value Reference Range Interpretation Comments POC-GLUCOSE METER 136 mg/dL 70-110 H : TESTED A T [address] (BEAKER) (test code [address], = 1538) [facility] [address]: Welding Equipment Repairer/Techni faviola ID = [id number] for esperanza Abraham POC [id number] 16:00:00 Test Item Value Reference Range Interpretation Comments POC glucose (test code = 158 mg/dL 65-99 H Ope rator Name: [id number]) Bob tilley ID: [id number] Lab Interpretation (test Abnormal code = 59194-3) [facility] [id number] 16:00:00 Test Item Value Reference Range Interpretation Comments POC glucose (test code = 158 mg/dL 65-99 H Ope rator Name: [id number]) Bob tilley ID: [id number] Lab Interpretation (test Abnormal code = 13506-8) [facility] [id number] 15:05:25 Test Item Value Reference Range Interpretation Comments Case number (test code = [id number]) Surgical pathology See link below for report (test code = PDF Lab Report 2255) Result status (test code This is Final Report = [id number]) for [id number] [facility] pathology [id number] 15:05:25 Test Item Value Reference Range Interpretation Comments Case number (test code = [id number]) Surgical pathology See link below for report (test code = PDF Lab Report 2255) Result status (test code This is Final Report = [id number]) for [id number] [facility] 12 [id number] 12:23:18 Test Item Value Reference Range Interpretation [...] of 12-AUG-2021 06:02,-No significant change was found- [facility] 12 [id number] 12:23:18 Test Item Value Reference Range Interpretation [...] of 12-AUG-2021 06:02,-No significant change was found- [facility] ED Preliminary Interpretation - Not an [id number] 21:23:51 Test Item Value Reference Range Interpretation Comments VALERIANO (test code = VALERIANO) Marley Cronin NP-C 09/07/2021 9[facility] Preliminary Interpretation - Not an OrderPerformed by: Marley Cronin NP-CAuthorized by: Trinidad Menard MD ECG reviewed by ED Physician in the absence of a fur blowing machine operator: no Previous ECG: Previous ECG: UnavailableInterpretat ion: Interpretation: abnormal Rate: ECG rate: 80 ECG rate assessment: normal Rhythm: Rhythm: paced Pacing: Type of pacing: VentricularEctopy: Ectopy: none QRS: QRS axis: Normal QRS intervals: NormalConduction: Conduction: normal ST segments: ST segments: Normal Lab Interpretation Abnormal (test code = 64263-7) [facility] ED Preliminary Interpretation - Not an [id number] 21:23:51 Test Item Value Reference Range Interpretation Comments VALERIANO (test code = VALERIANO) Marley Cronin NP-C 09/07/2021 9:29 [facility] ED Preliminary Interpretation - Not an OrderPerformed by: Marley Cronin NP-CAuthorized by: Trinidad Menard MD ECG reviewed by ED Physician in the absence of a fur blowing machine operator: no Previous ECG: Previous ECG: UnavailableInterpretat ion: Interpretation: abnormal Rate: ECG rate: 80 ECG rate assessment: normal Rhythm: Rhythm: paced Pacing: Type of pacing: VentricularEctopy: Ectopy: none QRS: QRS axis: Normal QRS intervals: NormalConduction: Conduction: normal ST segments: ST segments: Normal Lab Interpretation Abnormal (test code = 13608-2) [facility]ucsOCCJ-KiN-4 (COVID-19) RNA [Presence] in Respiratory specimen by LANG with probe [id number] 13:39:12 Test Item Value Reference Range Interpretation Comments SARS-CoV-2 (COVID-19) RNA Not detected [Presence] in Respiratory specimen by LANG with probe detection (test code = 19067-1) Whether patient is employed in a Unknown healthcare setting (test code = 48372-7) Whether the patient has symptoms Unknown related to condition of interest (test code = 66940-7) Whether the patient was Unknown hospitalized for condition of interest (test code = 55576-4) Whether the patient was admitted Unknown to intensive care unit (ICU) for condition of interest (test code = 33250-1) Whether patient resides in a Unknown congregate care setting (test code = 59675-7) status (test code = Unknown 19080-2) Date and time of symptom onset Unknown (test code = 62733-6) [facility] myocardial cnexmdmis2801-01-98 02:36:07 Test Item Value Reference Range Interpretation Comments Target HR (test code 148.00 bpm = 0132727063) Resting HR (test 83 BPM code = 8293528360) Resting BP (test 178/79 mmHg code = 3714414263) Percent HR (test 54.05 % code = 6568369357) Post Peak HR (test 80 bpm code = 7292334735) Post Peak BP (test 161/77 mmHg code = 7353368212) Radiology Study observation (narrative) (test code = 11947-3) VALERIANO (test code = Study Quality: good. [...] left ventricle ejection fraction is mildly reduced. [facility] stress [id number] 22:06:40 Test Item Value Reference Range Interpretation Comments Resting BP (test code = 0588687972) Protocol Name (test LEXISCAN code = 2523733962) Time in Exercise 00:01:00 Phase (test code = 1879883449) Max Systolic BP (test code = 4103696887) Max Diastolic BP (test code = 0899634567) Max Heart Rate (test code = 8159589769) Max Predicted Heart Rate (test code = 6966043386) Test Indication (test code = 5023694480) Arrhy During Ex (test code = 6503761375) ECG Interp Before EX (test code = 1989604742) ECG Interp During Ex (test code = 4961378534) Ex Summary Comment (test code = 6265003989) Overall HR Response to Exercise (test code = 8133107922) Overall BP Response To Exercise (test code = 5470103101) Reason for Termination (test code = 2696146486) Stress Test Waveform interpreted in Impression (test code report associated with = 0251309234) image study. No interpretation is provided as part of this Stress [facility] report[facility] [id number] 22:06:40 Test Item Value Reference Range Interpretation Comments Resting BP (test code = 2629542382) Protocol Name (test LEXISCAN code = 2497919655) Time in Exercise 00:01:00 Phase (test code = 2297923098) Max Systolic BP (test 178 code = 7826917873) Max Diastolic BP 79 (test code = 9660097989) Max Heart Rate (test 81 code = 8625617703) Max Predicted Heart 148 Rate (test code = 4938888798) Test Indication (test code = 3710199782) Arrhy During Ex (test code = 9231602304) ECG Interp Before EX (test code = 5996008969) ECG Interp During Ex (test code = 6902039156) Ex Summary Comment (test code = 4320856243) Overall HR Response to Exercise (test code = 3294328653) Overall BP Response To Exercise (test code = 3284951972) Reason for Termination (test code = 0113058785) Stress Test Waveform interpreted in Impression (test code report associated with = 9196787255) image study. No interpretation is provided as part of this Stress ECG report.- [facility] Complete, (w Contrast, Strain and 3D if needed)2021-08-01 17:44:46 Test Item Value Reference Range Interpretation Comments AoV Area, Vmax (test 2.41 cm2 code = 6793857553) AoV Area, VTI (test 2.36 cm2 code = 7918380540) AoV Mean PG (test 5.59 mmHg code = 7151309433) AoV Peak PG (test 11.08 mmHg code = 1633696333) AoV Vmax (test code 1.77 m/s = 6555810954) AoV VTI (test code = 0.30 m 2875786007) IVS,d (test code = 1.11 cm 6942123986) LV,d (test code = 5.57 cm 2300534784) LV EF,A2C (test code 44.91 % = 6933625167) LV EF,A4C (test code 42.43 % = 9071808215) LV EF,BP (test code 42.76 % = 1779549248) Santana Montara,d A2C (test 7.79 cm code = 4378995134) Santana Montara,d A4C (test 7.59 cm code = 5220578856) Santana Montara,s A2C (test 7.10 cm code = 9750630087) Santana Montara,s A4C (test 6.58 cm code = 1167822843) LV,s (test code = 4.42 cm 7943333427) LV SV,A2C (test code 59.18 % = 8316706210) LV SV,A4C (test code 64.42 % = 2594946634) LV Vol,d A2C (test 131.77 mL code = 2705079208) LV Vol,d A4C (test 151.81 ml code = 9064419110) LV Vol,d BP (test 142.79 ml code = 2493306254) LV Vol,s A2C (test 72.60 mL code = 2750486184) LV Vol,s A4C (test 87.39 ml code = 4531314278) LV Vol,s BP (test 81.72 nl code = 5858018958) LVOT Diam,S (test 2.08 cm code = 1390575812) LVOT Vmax (test code 1.16 m/s = 4516568275) LVOT VTI (test code 0.21 m = 7288581539) LVPWD,d (test code = 1.05 cm 7408991899) TR Vpeak (test code 2.66 mm/s = 6875994941) AR Press Half Time 504.65 ms (test code = 4824475639) TR pk grad (test 27.27 mmHg code = 3240718301) MR Vmax (test code = 6.10 m/s 9436644685) MR peak grad (test 121.70 mmHg code = 6416594473) E wave decelartion 149.68 msec time (test code = 9055681031) MV Peak E Des (test 1.46 m/s code = 3288429590) LVOT stroke volume 0.71 cm3 (test code = 4285394666) AV LVOT peak 5.36 mmHg gradient (test code = 5752097521) LV SYS VOL (test 88.60 ml code = 2549644986) LV THOMPSON VOL (test 151.60 ml code = 6350250740) LA area s A4C (test 35.87 cm2 code = 4979549034) LV SV Teich 2D (test 63.00 ml code = 9115032157) LVOT SI (test code = 38.28 ml/m2 9201768938) AoV Cusp sep (test 1.72 code = 6642882503) AoV Vmn (test code = 1.10 5663735914) IVS s 2D (test code 1.72 = 8009564087) AR slope (test code 2.59 = 6986103412) Ar Vmax (test code = 3.99 7479692642) LA Ao Ratio Mmode 2.07 (test code = 2603496195) LVOT Vmn (test code 0.80 = 0387912492) Pt Size (test code = 162.56 8696167823) Pt Wt (test code = 81.19 8396204735) PV AT (test code = 94.20 msec 2514184597) LVOT mean grad (test 2.88 mmHg code = 8185993901) AR DT (test code = 1541.52 msec 1657474941) AR pk grad (test 58.41 mmHg code = 6548711189) LVPW s PLAX (test 1.41 cm code = 0406608324) MV Decel slope (test 9.79 m/s2 code = 0538931820) LA Vol MOD A4C (test 124.31 ml code = 4592951514) Velocity Ratio 0.66 m/s (V1/V2) (test code = 4689) EF (test code = 41.56 % 7079637259) LVOT area (test code 3.40 cm2 = 3764602406) LVOT VTI (CM) (test 21.00 cm code = 4931494135) RA pressure (test 15.00 mmHg code = 5525004680) LA Vol 4C (test code 124.00 ml = 1933137840) RVSP (test code = 43.38 mmHg 4737166945) LA diam s (test code 5.50 cm = 4787255742) Aortic Root (test 2.63 cm code = 6706067785) KS End Thompson Grad 11.73 (test code = 3663807392) KS End Diat Des 1.71 (test code = 6720974977) AR maxPG (test code 63.74 = 3836283953) D E excurs (test 2.00 code = 3198246911) E f slope (test code 0.08 = 6213229279) E prime lat (test 0.06 code = 4990828616) E keaton sept (test 0.09 code = 0960722954) PV acc T slope (test 6.80 code = 1684276531) CONDE BP EF (test 43.00 % code = 9435538226) LA VOL 2C (test code 138.00 ml = 7553205093) VALERIANO (test code = The left ventricle [...] of aortic valve stenosis.PericardiumNo pericardial effusion seen. [facility] WpsofhrhMOEJ-SnI-1 (COVID-19) RNA [Presence] in Respiratory specimen by LANG with probe [id number] 23:11:03 Test Item Value Reference Range Interpretation Comments SARS-CoV-2 (COVID-19) RNA Not detected [Presence] in Respiratory specimen by LANG with probe detection (test code = 38140-6) Whether patient is employed in a Unknown healthcare setting (test code = 09815-4) Whether the patient has symptoms Unknown related to condition of interest (test code = 45773-2) Whether the patient was Unknown hospitalized for condition of interest (test code = 29181-0) Whether the patient was admitted Unknown to intensive care unit (ICU) for condition of interest (test code = 06361-2) Whether patient resides in a Unknown congregate care setting (test code = 85840-5) status (test code = Unknown 42166-9) Date and time of symptom onset Unknown (test code = 56732-7) [facility]-CoV-2 (COVID-19) RNA [Presence] in Respiratory specimen by LANG with probe qotlmvxge7852-04-32 11:45:59 Test Item Value Reference Range Interpretation Comments SARS-CoV-2 (COVID-19) RNA Not detected Not-Detected [Presence] in Respiratory specimen by LANG with probe detection (test code = 39469-4) Whether patient is employed in a healthcare setting (test code = 14568-1) Whether the patient has symptoms related to condition of interest (test code = 34618-6) Patient was hospitalized because of this condition (test code = 11619-4) Whether the patient was admitted to intensive care unit (ICU) for condition of interest (test code = 95519-1) Whether patient resides in a congregate care setting (test code = 78288-1) [facility]-CoV-2 (COVID-19) RNA [Presence] in Respiratory specimen by LANG with probe ovjdelalh0173-27-98 05:28:15 Test Item Value Reference Range Interpretation Comments SARS-CoV-2 (COVID-19) RNA Not detected Not-Detected [Presence] in Respiratory specimen by LANG with probe detection (test code = 56552-1) [facility]-CoV-[facility] (COVID-19) RNA [Presence] in Respiratory specimen by LANG with probe mrduknvqd6545-80-64 23:52:31 Test Item Value Reference Range Interpretation Comments SARS-CoV-2 (COVID-19) RNA Not detected Not-Detected [Presence] in Respiratory specimen by LANG with probe detection (test code = 58263-6) [facility]
[2022-09-27] MEDS ORDERED: ASPIRIN 81 MG CHEWABLE TABLET ONE (12:59)
[2022-09-27] MEDS ORDERED: ONDANSETRON 4 MG/2 ML VIAL ONE (13:40)
[2022-09-27] MEDS ORDERED: MORPHINE 4 MG/ML SYR ONE (13:40)
--- NOTE | 2022-09-27 13:41 | RAD REPORT ---
EXAM DESCRIPTION: Bernabe Single View09/27/2022 1:21 pm CLINICAL HISTORY: Chest pain COMPARISON: August 2022 FINDINGS: Mild bilateral interstitial lung opacities Heart is moderately enlarged. Pacemaker leads in place IMPRESSION: Mild CHF
[2022-09-27 13:55] LABS: Albumin 2.6 g/dL (3.4-5.0); Alkaline Phosphatase 167 U/L (45-117); BUN Blood Urea Nitrogen 34 mg/dL (7-18); Bicarbonate 23 mEq/L (21-32); Bilirubin Total 0.4 mg/dL (0.2-1.0); Glomerular Filtration Rate 12 ml/min (=/>90); Glucose Level 323 mg/dL (74-106); NT PRO-BNP 54988 pg/mL (<125); Protein, Total 7.3 g/dL (6.4-8.2); Sodium Level 132 mEq/L (136-145); Troponin High Sensitivity 39.7 pg/mL (<58.9)
[2022-09-27 13:56] LABS: ALT/SGPT < 10 U/L (13-56); AST/SGOT 16 U/L (15-37); Bilirubin Direct < 0.1 mg/dL (0-0.2); Potassium 3.9 mEq/L (3.5-5.1)
[2022-09-27 14:00] LABS: Absolute Lymphocytes (CBC) 1.5 K/uL (0.7-4.9); Hematocrit 31.4 % (36.0-45.0); MCV 80.2 fL (80-100); MPV 7.8 fL (7.6-11.3); RBC Red Blood Cell Count 3.91 M/uL (3.86-4.86)
[2022-09-27] MEDS ORDERED: LIDOCAINE 1% MPF 30 ML VIAL ONE (14:36)
--- NOTE | 2022-09-27 14:40 | ER ---
Nurse's Notes [facility] Name: Latricia Cadet Age: 71 yrs Sex: Female : 1950 Arrival Date: 09/27/2022 Time: 12:26 Bed 8 Private MD: Diagnosis: Shortness of breath;Acute pulmonary edema;Chest pain, unspecified;Anemia, unspecified;Essential (primary) hypertension Presentation: 09/27 12:30 Chief complaint: EMS states: Toned out for CP to [facility], CP started yesterday, jl7 worsened during dialysis. Missed dialysis Monday. 1 nitro SL given prior to EMS arrival, pt reports improvement on arrival to ED. Reports mid-sternal CP, radiates to bilateral sides, worse with coughing, unable to describe pain. Coronavirus screen: At this time, the client does not indicate any symptoms associated with coronavirus-19. Ebola Screen: No symptoms or risks identified at this time. Initial Sepsis Screen: Does the patient meet any 2 criteria? No. Patient's initial sepsis screen is negative. Does the patient have a suspected source of infection? No. Patient's initial sepsis screen is negative. Risk Assessment: Do you want to hurt yourself or someone else? Patient reports no desire to harm self or others. Onset of symptoms was September 26, 2022. 12:30 Care prior to arrival: Glucose check: 312. [facility] 12:43 Method Of Arrival: EMS: [facility] 12:43 Acuity: JAKE 2 jl7 Triage Assessment: 12:47 General: Appears in no apparent distress. uncomfortable, unkempt, Behavior is calm, jl7 cooperative, quiet, Smells of urine. Pain: Complains of pain in mid-sternal area Pain radiates to bilateral sides Pain currently is 8 out of 10 on a pain scale. Neuro: Level of Consciousness is awake, alert, obeys commands, Oriented to person, place, time. Cardiovascular: Patient's skin is warm and dry. Respiratory: Airway is patent Respiratory effort is even, unlabored, Respiratory pattern is regular, symmetrical, Breath sounds are coarse in right posterior upper lobe and right posterior middle lobe. Derm: Skin is dry, Skin is normal, Skin temperature is warm Rash noted that is red, on left breast. Historical: - Allergies: 12:47 No Known Allergies; jl7 - Home Meds: 13:33 doxazosin 4 mg Oral tab 1 tab daily [Active]; isosorbide mononitrate 60 mg oral Tablet, jl7 Extended Release 24 hr daily [Active]; furosemide 80 mg Oral tab 1 tab daily [Active]; Lexapro 10 mg Oral tablet daily [Active]; pantoprazole 40 mg oral granules delayed release for susp packet daily [Active]; pramipexole 0.25 mg oral tablet every evening [Active]; Renvela 800 mg oral tablet 2 tabs with meals [Active]; - PMHx: 12:47 angina pectoris; CHF; COPD; Diabetes - NIDDM; dialysis T, TH, Sat.; heart attack; jl7 Hypertension; insomnia; kidney disease; Rheumatoid Arthritis; Sleep Apnea; - PSHx: 12:47 HD Fistula - Right arm; hysterectomy; pacemaker; jl7 - Immunization history:: Adult Immunizations unknown. - Social history:: Smoking status: Patient denies any tobacco usage or history of. Screenin:26 [facility] ED Fall Risk Assessment (Adult) History of falling in the last 3 months, jl7 including since admission No falls in past 3 months (0 pts) Confusion or Disorientation No (0 pts) Intoxicated or Sedated No (0 pts) Impaired Gait No (0 pts) Mobility Assist Device Used No (0 pt) Altered Elimination No (0 pt) Score/Fall Risk Level 0 - 2 = Low Risk Oriented to surroundings, Maintained a safe environment. Abuse screen: Denies threats or abuse. Denies injuries from another. Nutritional screening: No deficits noted. Tuberculosis screening: No symptoms or risk factors identified. Assessment: 13:30 Reassessment: Patient appears in no apparent distress at this time. No changes from jl7 previously documented assessment. Patient and/or family updated on plan of care and expected duration. Pain level reassessed. Patient is alert, oriented x 3, equal unlabored respirations, skin warm/dry/pink. 14:26 Reassessment: Patient appears in no apparent distress at this time. No changes from jl7 previously documented assessment. Patient and/or family updated on plan of care and expected duration. Pain level reassessed. Patient is alert, oriented x 3, equal unlabored respirations, skin warm/dry/pink. 15:26 Reassessment: Pt gave verbal consent to discuss medical information with her jl7 [id number] Eli Cadet. Eli Cadet requesting admitting doctor to call her so that they can discuss the pt's situation. Pt lost her son in June and has not grieved. Eli would like to discuss all information with the doctor. Doctor Cindy notified and provided with Eli's phone number [phone]. 15:47 Reassessment: KIRIT Giron and Dr. Petty at bedside to discuss admission with patient. Pt ss is refusing admission and states that she can just go to her next scheduled dialysis session and use her O2 she has at home. Pt verbalizes understanding risks of going home at this time and still persist that she would rather be discharged. Vital Signs: 12:43 BP 123 / 64; Pulse 80; Resp 18 S; Temp 97.2; Pulse Ox 96% on R/A; Weight 67.59 kg; jl7 Height 5 ft. 4 in. ; Pain 8/10; 14:25 BP 138 / 56; Pulse 80; Resp 19; Pulse Ox 97% on 2 lpm NC; jl7 15:48 BP 128 / 69; Pulse 91; Resp 16; Pulse Ox 100% on 2 lpm NC; ss 12:43 Body Mass Index 25.58 (67.59 kg, 162.56 cm) jl7 12:43 Pain Scale: Adult jl7 ED Course: 12:28 Patient arrived in ED. ms3 12:28 Messi Petty DO is Attending Physician. ms3 12:30 Patient has correct armband on for positive identification. Placed in gown. Bed in low jl7 position. Call light in reach. Side rails up X2. Client placed on continuous cardiac and pulse oximetry monitoring. NIBP monitoring applied. 12:30 Warm blanket given. jl7 12:40 EKG done, by ED staff, reviewed by Messi Petty DO. jl7 12:43 Izzy Moore, RN is Primary Nurse. jl7 12:47 Triage completed. jl7 12:47 Arm band placed on right wrist. jl7 13:15 Initial lab(s) drawn, by me, sent to lab. Missed attempt(s): 22 gauge in left upper jl7 arm. Bleeding controlled, band aid applied, catheter tip intact. 13:22 XRAY Chest (1 view) In Process Unspecified. EDMS 14:39 Cindy, Anthony, MD is Hospitalizing Provider. ms3 16:16 No provider procedures requiring assistance completed. Patient did not have IV access ss during this emergency room visit. Administered Medications: 13:45 Drug: Aspirin PO Chewable Tablet 324 mg Route: PO; jl7 Medication: 14:26 VIS not applicable for this client. jl7 Outcome: 14:40 Decision to Hospitalize by Provider. ms3 15:48 Discharge ordered by MD. ms3 16:16 Condition: good ss 16:16 Discharge instructions given to patient, Instructed on discharge instructions, follow up and referral plans. Demonstrated understanding of instructions, follow-up care. 16:33 Discharged to home via wheelchair, with family. ss 16:33 Patient left the ED. ss Signatures: Dispatcher [employer] [facility] Leela Martin RN RN Izzy Martin RN RN jl7 Messi Petty DO DO ms3
--- NOTE | 2022-09-27 14:40 | EDPHYS ---
Physician Documentation [facility] Name: Latricia Cadet Age: 71 yrs Sex: Female : 1950 Arrival Date: 09/27/2022 Time: 12:26 Bed 8 Private MD: ED Physician Messi Petty HPI: 09/27 12:33 This 71 yrs old Female presents to ER via Unassigned with complaints of chest pain, ms3 shortness of breath. 12:33 71-year-old female with past medical history of end-stage renal disease with dialysis ms3 on Saturdays presents via [facility], EMS for chest pain and shortness of breath that began last night. Patient states her chest pain is worse with coughing and rated an 8/10. Patient states she missed her dialysis on Monday. EMS notes patient's blood glucose level was 310, patient's rhythm is ventricular paced.. Historical: - Allergies: 12:47 No Known Allergies; jl7 - Home Meds: 13:33 doxazosin 4 mg Oral tab 1 tab daily [Active]; isosorbide mononitrate 60 mg oral Tablet, jl7 Extended Release 24 hr daily [Active]; furosemide 80 mg Oral tab 1 tab daily [Active]; Lexapro 10 mg Oral tablet daily [Active]; pantoprazole 40 mg oral granules delayed release for susp packet daily [Active]; pramipexole 0.25 mg oral tablet every evening [Active]; Renvela 800 mg oral tablet 2 tabs with meals [Active]; - PMHx: 12:47 angina pectoris; CHF; COPD; Diabetes - NIDDM; dialysis T, , Sat.; heart attack; jl7 Hypertension; insomnia; kidney disease; Rheumatoid Arthritis; Sleep Apnea; - PSHx: 12:47 HD Fistula - Right arm; hysterectomy; pacemaker; jl7 - Immunization history:: Adult Immunizations unknown. - Social history:: Smoking status: Patient denies any tobacco usage or history of. ROS: 12:33 Constitutional: Negative for fever, and chills. Neck: Negative for injury, pain, and ms3 swelling. 12:33 MS/Extremity: Negative for injury and deformity, Skin: Negative for injury, rash, and discoloration. 12:33 Cardiovascular: Positive for chest pain. 12:33 Respiratory: Positive for dyspnea on exertion. 12:33 All other systems are negative. Exam: 12:33 Constitutional: This is a well developed, well nourished patient who is awake, alert, ms3 and in no acute distress. Head/Face: Normocephalic, atraumatic. Neck: Trachea midline, no cervical lymphadenopathy. Supple, full range of motion without nuchal rigidity, or vertebral point tenderness. No Meningismus. Chest/axilla: Normal chest wall appearance and motion. Nontender with no deformity. Cardiovascular: Regular rate and rhythm with a normal S1 and S2. No gallops, murmurs, or rubs. Normal PMI, no JVD. No pulse deficits. Respiratory: Lungs have equal breath sounds bilaterally, clear to auscultation and percussion. No rales, rhonchi or wheezes noted. No increased work of breathing, no retractions or nasal flaring. Abdomen/GI: Soft, non-tender, with normal bowel sounds. No distension or tympany. No guarding or rebound. No evidence of tenderness throughout. Skin: Warm, dry with normal turgor. Normal color with no rashes, no lesions, and no evidence of cellulitis. 13:35 ECG was reviewed by the Attending Physician. ms3 Vital Signs: 12:43 BP 123 / 64; Pulse 80; Resp 18 S; Temp 97.2; Pulse Ox 96% on R/A; Weight 67.59 kg; jl7 Height 5 ft. 4 in. ; Pain 8/10; 14:25 BP 138 / 56; Pulse 80; Resp 19; Pulse Ox 97% on 2 lpm NC; jl7 15:48 BP 128 / 69; Pulse 91; Resp 16; Pulse Ox 100% on 2 lpm NC; ss 12:43 Body Mass Index 25.58 (67.59 kg, 162.56 cm) jl7 12:43 Pain Scale: Adult jl7 MDM: 12:28 Patient medically screened. ms3 14:40 Differential diagnosis: abnormal EKG, acute myocardial infarction, coronary artery ms3 disease chest wall pain, pneumonia. HEART Score: History: Slightly Suspicious (0), ECG: Non specific repolarization disturbance / LBTB / PM (1), Age: > or = 65 years (2), Risk Factors: > or = 3 Risk factors for atherosclerotic disease (2), Troponin: < or = 1 x Normal Limit (0), Total Score = 5. The patient was given aspirin in the Emergency Department. Data reviewed: vital signs, nurses notes, lab test result(s), EKG, radiologic studies, and as a result, I will admit patient. Consideration of Admission/Observation Patient was admitted/placed on observation. Management of patient was discussed with the following: Hospitalist: Dr White. I considered the following discharge prescriptions or medication management in the emergency department Medications were administered in the Emergency Department. See MAR. Independent interpretation of the following test(s) in the Emergency Department EKG: See my EKG interpretation above cardiac monitor: rate is 82 beats/min, Rhythm is paced rhythm with no ectopy, Interpretation: paced. Counseling: I had a detailed discussion with the patient and/or guardian regarding: the historical points, exam findings, and any diagnostic results supporting the discharge/admit diagnosis, lab results, radiology results, the need for further work-up and treatment in the hospital. Response to treatment: There is no appreciated change of the patient's symptoms at this time, and as a result, I will admit patient. 15:52 Refusal of service: The patient/guardian displays adequate decision making capability ms3 and despite a detailed discussion of alternatives, benefits, risks, and consequences refuses: Admission to the hospital for further work-up and treatment. ED course: Patient states she does not wish to be admitted at this time. Patient states she has oxygen at home. Patient is alert and orient x4, in no apparent distress, nontoxic-appearing. Return precautions discussed include worsening of shortness of breath, worsening chest pain, or any other concerns.. 09/27 12:29 Order name: Basic Metabolic Panel; Complete Time: 14:13 ms3 09/27 12:29 Order name: CBC with Diff ms3 09/27 12:29 Order name: LFT's; Complete Time: 14:13 ms3 09/27 12:29 Order name: Magnesium; Complete Time: 14:13 ms3 09/27 12:29 Order name: NT PRO-BNP; Complete Time: 14:13 ms3 09/27 12:29 Order name: Troponin HS; Complete Time: 14:13 ms3 09/27 12:29 Order name: XRAY Chest (1 view); Complete Time: 13:43 ms3 09/27 12:29 Order name: EKG; Complete Time: 12:30 ms3 09/27 15:16 Order name: 60g Consistent Carbohydrate (ADA 1800/1999) EDMS 09/27 12:29 Order name: Cardiac monitoring; Complete Time: 13:15 ms3 09/27 12:29 Order name: EKG - Nurse/Tech; Complete Time: 13:15 ms3 09/27 12:29 Order name: Labs collected and sent; Complete Time: 13:15 ms3 09/27 12:29 Order name: O2 Per Protocol; Complete Time: 13:15 ms3 09/27 12:29 Order name: O2 Sat Monitoring; Complete Time: 13:15 ms3 EC:35 Rate is 80 beats/min. Rhythm is regular. Left axis deviation noted. QRS interval is ms3 prolonged. Clinical impression: Ventricular paced. Interpreted by me. Reviewed by me. Administered Medications: 13:45 Drug: Aspirin PO Chewable Tablet 324 mg Route: PO; jl7 Disposition Summary: 09/27/22 15:48 Discharge Ordered Location: Home(09/27/22 15:48) ms3 Condition: Stable(09/27/22 15:48) ms3 Diagnosis - Shortness of breath(09/27/22 15:48) ms3 - Acute pulmonary edema(09/27/22 15:48) ms3 - Chest pain, unspecified(09/27/22 15:48) ms3 - Anemia, unspecified(09/27/22 15:48) ms3 - Essential (primary) hypertension(09/27/22 15:48) ms3 Discharge Instructions: - Discharge Summary Sheet ms3 - Nonspecific Chest Pain, Adult ms3 - Hypertension, Adult ms3 - Pulmonary Edema ms3 - Dialysis ms3 Forms: - Medication Reconciliation Form ms3 - Thank You Letter ms3 - Antibiotic Education ms3 - Prescription Opioid Use ms3 Signatures: Dispatcher [employer] EDMS Izzy Moore RN RN jl7 Messi Petty DO DO ms3 Corrections: (The following items were deleted from the chart) 15:48 14:40 Observation ms3 ms3 15:48 14:40 Anthony White ms3 ms3 15:48 14:40 Telemetry/MedSurg (observation) ms3 ms3 15:48 14:40 Stable ms3 ms3 15:48 14:40 new ms3 ms3 15:48 14:40 are unchanged ms3 ms3 15:48 14:40 Standard ms3 ms3 15:48 14:40 ms3 ms3 15:48 14:40 Shortness of breath ms3 ms3 15:48 14:40 Acute pulmonary edema ms3 ms3 15:48 14:40 Chest pain, unspecified ms3 ms3 15:48 14:40 Anemia, unspecified ms3 ms3 15:48 14:40 Essential (primary) hypertension ms3 ms3
[2022-09-27] MEDS ORDERED: ACETAMINOPHEN 325 MG TABLET PO PRN (15:12)
[2022-09-27] MEDS ORDERED: HYDROCODONE/APAP 5/325 MG TAB PO PRN (15:12)
[2022-09-27] MEDS ORDERED: GLUCAGON 1 MG/VIAL IM PRN ×2 (15:15)
[2022-09-27] MEDS ORDERED: D50W 25 GM/50 ML SYRINGE IV PRN ×2 (15:15)
[2022-09-27] MEDS ORDERED: D10W 125 ML IV PRN (15:22)
[2022-09-27] MEDS ORDERED: INSULIN -REGULAR HUMAN 50 UNIT/0.5 ML ML SQ SCH (16:30)
[2022-09-27 16:44] VITALS: TEMP 97.2
[2022-09-27 16:47] VITALS: BP 128/69; O2SAT 100
[2022-09-27] MEDS ORDERED: INSULIN LISPRO 100 UNIT/1 ML SQ SCH (17:00)
[2022-09-27 18:55] LABS: White Blood Cell Scan OK (OK)
[2022-09-27 18:56] LABS: Blood Morphology Comment NOT SEEN (NOT SEEN); Platelet Estimate ADEQ
[2022-09-28] MEDS ORDERED: ASPIRIN 81 MG CHEWABLE TABLET PO SCH (09:00)
--- NOTE | 2022-09-28 16:00 | EKG ---
Test Date: 2022-09-27 Test Time: 12:35:20 Nurse Liaison: MIRIAN MEASUREMENT RESULTS: Intervals: Rate: 80 GA: 246 QRSD: 162 QT: 470 QTc: 542 [place]: P: 74 GA: 246 QRS: -81 T: 94 INTERPRETIVE STATEMENTS: Sinus rhythm with 1st degree AV block Right bundle branch block Left anterior fascicular block Bifascicular block Lateral infarct, age undetermined Abnormal ECG Compared to ECG 09/18/2022 16:54:13 First degree AV block now present Right bundle-branch block now present Left anterior fascicular block now present Bifascicular block now present Myocardial infarct finding now present Ventricular-paced complex(es) or rhythm no longer present Electronically Signed On 09-28-22 15:57:29 CDT by Aakash Ashford
== END 2022-09-27 16:33 | disposition home or self-care (01) ==
LOC: ER 12:26 → ERHOLD 15:11 → UNDOADMIN 15:11
DX: J81.0 Acute pulmonary edema (principal); R07.9 Chest pain, unspecified; D64.9 Anemia, unspecified; I10 Essential (primary) hypertension; E11.22 Type 2 diabetes mellitus with diabetic chronic kidney disease; I13.2 Hypertensive heart and chronic kidney disease with heart failure and with stage 5 chronic kidney disease, or end stage renal disease; I50.9 Heart failure, unspecified; N18.6 End stage renal disease; Z99.2 Dependence on renal dialysis; Z95.0 Presence of cardiac pacemaker
CPT/HCPCS: 93005; 85025; 80048; 36415; 83735; 80076; 84484; 83880; 71045; 99284; J2001; J2405

== ENCOUNTER 2022-09-29 21:57 | Emergency (ER) | payer OTHER ==
--- OUTSIDE RECORDS SUMMARY | 2022-09-29 22:09 | XMS REPORT | Continuity of Care Document ---
:1950 Author Organization [facility] t Address [address] [facility] [address] [place] [address] Care Team Providers Name Role Phone Pcp, Patient Does Not Have A Primary Care Physician [phone] Greg Fuentes Attending Clinician Unavailable Doctor Unassigned, [place] Attending Clinician Unavailable Luc Alvarez Attending Clinician Alannah Renner MD Attending Clinician Annalee Bey MD Attending Clinician Mauro Mendoza MD Attending Clinician ANNALEE BEY Attending Clinician Unavailable ALANNAH RENNER Attending Clinician Unavailable Derian HOLLIDAY, Trinidad Reza Attending Clinician Corrine Osuna MD Attending Clinician Natasha HOLLIDAY, Edwin Toribio Attending Clinician [phone] John HOLLIDAY, Shanon Vidal Attending Clinician [phone] Tim HOLLIDAY, Tammy Thompson Attending Clinician Armen [...] Number Effective Date Expiration Date S gus [facility] [id number] 2021 (NON-CONTRACTED) 00:00:00 [facility] [id number] 2021 [facility] 00:00:[address] [facility] - [id number] [facility] ([facility] Problems Condition Condition Condition Status Onset Resolution [...] ethodi rosis of rosis of 3-[facility] [place] [facility]ospita coronary coronary 00 l artery of artery of [place] heart heart without without angina angina pectoris [...] (chronic 827 ity of kidney kidney 00:00: [place] disease) disease) 00 Medica l stage 4, stage 4, Branch GFR 15-29 GFR 15-29 ml/min ml/min Type 2 Type 2 Disease Active Overview: Univer s diabetes diabetes Formattin ity of mellitus mellitus g of this [facility] as with with note Medical diabetic diabetic might be Bran ch nephropath nephropath different y y from the original. follows with Dr. Ngo in [place] Neuropathy Neuropathy Disease Active Overview : Univers Formattin ity of g of this [place] note Medical might be Branch different from the original. in feet and legs Hyperchole Hyperchole Disease Active Overview : Univers steremia steremia Formattin ity of g of this [place] note Medical might be Branch different from the original. follows with Dr. Higuera HTN HTN Disease Active Overview: [facility] s (hypertens (hypertens Formattin ity of ion) ion) g of this [place] note Medical might be Branch different from the original. follows with Dr. Higuera Atrial Atrial Disease Active Overview: [facility] s fibrillati fibrillati Formattin ity of on on g of this [place] note Medical might be Branch different from the original. follows with Dr. Higuera Allergies, Adverse Reactions, Alerts Allergy Allergy Status Severity Reaction(s) Onset Inactive Treating Comm ents Source Name Type Date Date Clinician No Known DA Active U [facility] Allergie -17 Clear s 00:00: An 00 [facility] Hydrocod Propensi Active GI "not an Metho di one ty to Intolerance 06-02 allergy, st adverse 00:00: but it Hospita reaction 00 upsets my l s to stomach drug every time I take it" No Known DA Active U [facility] Allergie 01-30 Clear s 00:00: An 00 [facility] NO KNOWN Allergy Active [facility] NO KNOWN Drug Active Univers ALLERGIE Class ity of S [place] [facility] [place] Family History Family Member Diagnosis Comments Start Date Stop Date Source Natural sister Breast cancer [facility] Natural sister Cancer [facility] Natural brother Cancer [facility] Natural brother Colon cancer [facility] Natural brother Lung cancer [facility] Maternal grandmother Brain cancer [facility] Maternal grandmother Cancer [facility] Natural mother Cancer [facility] Natural mother [facility]ine [facility] Social History Social Habit Start Date Stop Date Quantity Comments Source History [facility] Amish Alcohol Std Drinks Hospit al Gender identity [facility] Sexual orientation Method [facility] History of Social 2022-07-28 2022-07-[address] function 00:00:00 00:00:00 Hospital Tobacco use and 2022-01-08 2022-01-08 Smokeless [facility] exposure 00:00:00 00:00:00 tobacco non-user Medical Center Alcohol intake 2021-09-14 2021-09-14 Current Amish 00:00:00 00:00:00 non-drinker of Hospital alcohol (finding) History SDOH 2020-04-05 2020-04-05 1 [facility] Alcohol Frequency 00:00:00 00:00:00 Hospita l History SDOH 2020-04-05 2020-04-05 1 [facility] Alcohol Binge 00:00:00 00:00:00 Hospital Sex [birth year] [facility]ish 00:00:00 00:00:00 Hospital Smoking Status Start Date Stop Date Source Never smoked tobacco [facility] Center Medications Ordered Filled Start Stop Current Ordering Indication Dosage Frequency Signature Comments Components Source Medication Medication Date Date Medication? Clinician (SIG) Name Name aspirin 81 0 Yes 81mg QD Take [address] MG chewable 8-30 by mouth Luke s tablet 16:49: daily. [address] apixaban 0 Yes 2.5mg Q.5D Take [...] (PROTONIX) 16:49: daily. Medic al 40 MG Center tablet traZODone Yes 100mg QD Take [address] (DESYREL) 8-30 mg by [facility] 100 MG 16:49: mouth Medical tablet 03 nightly. [place] aspirin 81 0 Yes 81mg QD Take [address] MG chewable 8-30 by mouth Luke s tablet 16:49: daily. [facility] 03 [place] apixaban 0 Yes 2.5mg Q.5D Take 2.[address] (Eliquis) 8-30 mg by [facility] 2.5 mg Tab 16:49: mouth 2 Medi [place] tablet 03 (two) Center times daily. pramipexole 2021-0 Yes 1mg QD Take [address] (MIRAPEX) 1 8-30 by mouth Luke s MG tablet 16:49: nightly. [facility] 03 [place] semaglutide 2021-0 Yes [address]mg Inject [facility] [...] MG 16:49: mouth Medical tablet 03 nightly. [place] aspirin 81 2021-0 Yes 81mg QD Take [address] MG chewable 8-30 by mouth Luke s tablet 16:49: daily. [facility] 03 [place] apixaban 0 Yes 2.5mg Q.5D Take 2.[address] (Eliquis) 8-30 mg by [facility] 2.5 mg Tab 16:49: mouth 2 Medi [place] tablet 03 (two) Center times daily. pramipexole 2021-0 Yes 1mg QD Take [address] (MIRAPEX) 1 8-30 by mouth Luke s MG tablet 16:49: nightly. [facility] 03 [place] semaglutide 0 Yes .25mg Inject [facility] [...] MG 16:49: mouth Medical tablet 03 nightly. [place] aspirin 81 2021-0 Yes 81mg QD Take [address] MG chewable 8-30 by mouth Luke s tablet 16:49: daily. [address] apixaban 2021-0 Yes 2.5mg Q.5D Take 2.[address] (Eliquis) 8-30 mg by [facility] 2.5 mg Tab 16:49: mouth 2 Medi [place] tablet 03 (two) Center times daily. pramipexole 0 Yes 1mg QD Take [address] (MIRAPEX) 1 8-30 by mouth Luke s MG tablet 16:49: nightly. [address] semaglutide 0 Yes .25mg Inject [facility] (Ozempic) 8-30 0.25 mg [facility]ukes 0.25 mg or 16:49: subcutaneo M edical 0.5 mg(2 03 usly every Cente r mg/1.5 mL) 7 days PnIj Every Monday . pantoprazol 0 Yes 40mg QD Take [address] e 8-30 by mouth [facility] (PROTONIX) 16:49: daily. Medic al [address] [place] [address] tablet traZODone 0 Yes 100mg QD Take [address] (DESYREL) 8-30 mg by [facility] 100 MG 16:49: mouth Medical tablet 03 nightly. [place] aspirin 81 0 Yes 81mg QD Take [address] MG chewable 8-30 by mouth Luke s tablet 16:49: daily. [address] apixaban 0 Yes 2.5mg Q.5D Take 2.[address] (Eliquis) 8-30 mg by [facility] 2.5 mg Tab 16:49: mouth 2 Medi [place] tablet 03 (two) Center times daily. pramipexole 0 Yes 1mg QD Take [address] (MIRAPEX) 1 8-30 by mouth Luke s MG tablet 16:49: nightly. [address] semaglutide 0 Yes .25mg Inject CHI [...] MG 16:49: mouth Medical tablet 03 nightly. [place] aspirin 81 0 Yes 81mg QD Take [address] MG chewable 8-30 by mouth Luke s tablet 16:49: daily. [facility] 03 [place] apixaban 0 Yes 2.5mg Q.5D Take 2.[address] (Eliquis) 8-30 mg by [facility] 2.5 mg Tab 16:49: mouth 2 Medi [place] tablet 03 (two) Center times daily. pramipexole 0 Yes 1mg QD Take [address] (MIRAPEX) 1 8-30 by mouth Luke s MG tablet 16:49: nightly. Medi [place] 03 [place] semaglutide Yes .25mg Inject [facility] (Ozempic) [...] MG 16:49: mouth Medical tablet 03 nightly. [place] aspirin 81 2021-0 Yes 81mg QD Take [address] MG chewable 8-30 by mouth Luke s tablet 16:49: daily. [facility] 03 [place] apixaban 0 Yes 2.5mg Q.5D Take 2.5 [...] 03 nightly. Center hydrALAZINE 2021- No 25mg Q.[id number] Take [address] (APRESOLINE - 08-30 [id number] by mouth 3 [facility] ) 25 MG 11:55: 00:00 3D (three) Medica l tablet 27 :00 times Center daily. budesonide 2021- No 3mg QD Take [address] (ENTOCORT 01-18-30 by mouth [facility] EC) 3 mg 24 11:55: 00:00 every Medi keira hr capsule 27 :00 morning. Cente r carvediloL 2021- No 25mg Take [address] (COREG) 25 8-30 08-30 by mouth 2 Camille kes MG tablet 11:55: 00:00 (two) Medica l 27 :00 times Center daily with breakfast and dinner. doxazosin 2021- No 4mg QD Take [address] (CARDURA) 4 8- 08-30 by mouth Christopher es MG tablet 11:55: 00:00 nightly. Med ical 27 :00 Center isosorbide 2021- No 60mg QD Take [address] mononitrate 01-18 08-30 by mouth Christopher es (IMDUR) 60 11:55: 00:00 daily. Medi [place] MG 24 hr 27 :00 Center tablet insulin 2021- No 40U QD Inject [address] glargine -30 08-30 Units [facility]ukes (LANTUS, 11:55: 00:00 subcutaneo Me dical SEMGLEE) 27 :00 usly Center 100 unit/mL nightly injection Use as directed . furosemide 2021- No 80mg Q.5D Take [address] (LASIX) 80 01-1830 by mouth 2 Camille kes MG tablet 11:55: 00:00 (two) Medica l 27 :00 times Center daily. escitalopra 2021- No 10mg QD Take [address] m oxalate 01-18 by mouth [facility]ukes (LEXAPRO) 11:55: 00:00 nightly. Med ical 10 MG 27 :00 Center tablet melatonin No 10mg QD Take 10 mg C [...] :00 daily. Center hydrALAZINE 2021- No 25mg Q.[id number] Take [address] (APRESOLINE 01-18 [id number] by mouth 3 [facility] ) 25 MG [...] .25ug QD Take 0.[address] (ROCALTROL) 8- 08-30 mcg by Lukes 0.25 MCG 11:55: 00:00 mouth Medical capsule 27 :00 daily. Center hydrALAZINE 2021- No 25mg Q.[id number] Take [address] (APRESOLINE 01-18-30 [id number] by mouth 3 [facility] ) 25 MG [...] 00:00 subcutaneo Me dical SEMGLEE) 27 :00 [facility] Center 100 unit/mL nightly injection Use as [...] :00 daily. Center hydrALAZINE 2021- No 25mg Q.[id number] Take [address] (APRESOLINE 01-18 [id number] by mouth 3 [facility] ) 25 MG [...] 00:00 subcutaneo Medic al (NovoLOG) 27 :00 [facility] 3 Center 100 unit/mL (three) (3 mL) InPn times daily before meals. calcitrioL 2021- No .25ug QD Take 0.[address] (ROCALTROL) 01-18-30 mcg by Lukes 0.25 MCG 11:55: 00:00 mouth Medical capsule 27 :00 daily. Center hydrALAZINE 2021- No 25mg Q.[id number] Take [address] (APRESOLINE 01-18- [id number] by mouth 3 [facility] ) 25 MG 11:55: 00:00 3D (three) Medica l tablet 27 :00 times Center daily. budesonide 2021- No 3mg QD Take [address] (ENTOCORT 01-18-30 by mouth [facility] EC) 3 mg 24 11:55: 00:00 every Medi keira hr capsule 27 :00 morning. Cente r carvediloL 2021- No 25mg Take [address] (COREG) 25 -18 01-30 by mouth 2 Camille kes [...] s 11:55: 00:00 nightly. Medical 27 :00 [place] insulin 2021- No 10U Inject [address] aspart 01-18 08-30 Units [facility]ukes U-100 11:55: 00:00 subcutaneo Medic al (NovoLOG) 27 :00 usly 3 Center 100 unit/mL (three) (3 mL) InPn times daily before meals. calcitrioL 2021- No .25ug QD Take 0.[address] (ROCALTROL) 8-30 08-30 mcg by Lukes 0.25 MCG 11:55: 00:00 mouth Medical capsule 27 :00 daily. [place] hydrALAZINE 2021- No 25mg Q.[id number] Take [address] (APRESOLINE 01-18- [id number] by mouth 3 [facility] ) 25 MG [...] mg [facility] 10 mg TbDL 8-30 08-30 by mouth Luke s 11:55: 00:00 nightly. [...] :00 daily. Center hydrALAZINE 2021- No 25mg Q.[id number] Take [address] (APRESOLINE 01-18 [id number] by mouth 3 [facility] ) 25 MG [...] QD Inject [address] (ROCEPHIN) 01-18-24 intravenou Camille neumann 2 g in 00:00: [...] for 7 doses. vancomycin 2021-2021- No 125mg Q2D Take 1 [...] 125mg QD Take 1 [facility] (Vancocin) 516 -[address] 125 MG 00:00: 04:59 [...] times a day for 14 doses. vancomycin 2021-2021- No 125mg Q.5D Take 1 Met [facility] (Vancocin) 09-26-[address] 125 MG 00:00: 04:59 (125 mg Hospita capsule 00 :00 total) by l mouth 2 (two) times a day for 14 doses. vancomycin 2021-2021- No 125mg Q.[id number] Take 1 [facility] (Vancocin) 09-24-[id number] 125 MG 00:00: 04:59 3D (125 mg Hospita capsule 00 :00 total) by l mouth 3 (three) times a day for 8 doses. vancomycin 2021-0 2021- No 125mg Q.[id number] Take 1 [facility] (Vancocin) 09-24-[id number] 125 MG 00:00: 04:59 3D (125 mg Hospita capsule 00 :00 total) by l mouth 3 (three) times a day for 8 doses. vancomycin 2021-2021- No 125mg Q.[id number] Take 1 [facility] (Vancocin) 09-24-[id number] 125 MG 00:00: 04:59 3D (125 mg Hospita capsule 00 :00 total) by l mouth 3 (three) times a day for 8 doses. vancomycin 2021-0 2021- No 125mg Q.[id number] Take 1 [facility] (Vancocin) 09-24-[id number] 125 MG 00:00: 04:59 3D (125 mg Hospita capsule 00 :00 total) by l mouth 3 (three) times a day for 8 doses. apixaban 2022-0 Yes 2.5mg Q.5D Take 2.5 Meth [facility] (ELIQUIS) 4-[address] 2.5 mg 18:55: mouth 2 Hospita tablet 03 (two) l times a day. apixaban 2022-0 Yes 2.5mg Q.5D Take 2.5 Meth [facility] (ELIQUIS) 4-[address] 2.5 mg 18:55: mouth 2 Hospita tablet 03 (two) l times a day. apixaban 2022-0 Yes 2.5mg Q.5D Take 2.5 Meth ramiro [...] daily. Hospi ta 55 :00 l pramipexole 2-0 Yes 1mg QD Take [...] mouth Hospita capsule 51 daily. l pramipexole 0 Yes 1mg QD Take [...] 51 daily. l hydrALAZINE 2021- No 25mg Q.[id number] Take 1 [facility] (APRESOLINE -16 10-29 [id number] tablet (25 st ) 25 MG 00:00: 04:59 3D mg total) [facility] tablet 00 :00 by mouth l every 8 (eight) hours for 30 days. aspirin 81 2021- No 81mg QD Chew 1 Meth [facility] mg chewable -16 10-29 tablet (81 s t tablet 00:00: 04:59 mg total) Hospi ta 00 :00 daily for l 30 days. carvediloL 0 2021- No 25mg Q.5D Take 1 Meth [facility] (COREG) 25 - 05-29 tablet (25 st MG tablet 00:00: 04:59 mg total) Ho spita 00 :00 by mouth 2 l (two) times a day for 30 days. pantoprazol 2021- No 40mg QD Take 1 Met hodi e 4-28 05-29 tablet (40 st (Protonix) 00:00: 04:59 mg total) H ospita 40 MG EC 00 :00 by mouth l tablet daily for 30 days. hydrALAZINE 2021-2021- No 25mg Q.[id number] Take 1 [facility] (APRESOLINE 4-16 10-29 [id number] tablet (25 st ) 25 MG 00:00: [...] for 30 days. hydrALAZINE 2021- No 25mg Q.[id number] Take 1 [facility] (APRESOLINE 4-16 10-29 [id number] tablet (25 st ) 25 MG 00:00: 04:59 3D mg total) [facility] tablet 00 :00 by mouth l every 8 (eight) hours for 30 days. aspirin 81 2021-0 2021- No 81mg QD Chew 1 Meth [facility] mg chewable - 05-29 tablet (81 s t tablet 00:00: 04:59 mg total) Hospi ta 00 :00 daily for l 30 days. carvediloL 2021-0 2- No 25mg Q.5D Take 1 Meth [facility] (COREG) 25 - 05-29 tablet (25 st MG tablet 00:00: 04:59 mg total) Ho spita 00 :00 by mouth 2 l (two) times a day for 30 days. pantoprazol 2021-2021- No 40mg QD Take 1 Met hodi e 09-16-29 tablet (40 st (Protonix) 00:00: 04:59 mg total) H ospita 40 MG EC 00 :00 by mouth l tablet daily for 30 days. hydrALAZINE 2021-2021- No 25mg Q.[id number] Take 1 [facility] (APRESOLINE -16 10-29 [id number] tablet (25 st ) 25 MG 00:00: 04:59 3D mg total) [facility] tablet 00 :00 by mouth l every 8 (eight) hours for 30 days. aspirin 81 2021-2021- No 81mg QD Chew 1 Meth ramiro [...] for 30 days. hydrALAZINE 2021- No 25mg Q.[id number] Take 1 [facility] (APRESOLINE 4-16 10-29 [id number] tablet (25 st ) 25 MG 00:00: 04:59 3D mg total) [facility] tablet 00 :00 by mouth l every 8 (eight) hours for 30 days. aspirin 81 2021-0 2021- No 81mg QD Chew 1 Meth [...] l insulin 2021- No Inject [facility] LISPRO - 03-[address] PROTAMIN-LI 19:46: 00:00 skin. [facility] SPRO 04 :00 l (HUMALOG 50-50) 100 unit/mL (50-50) suspension subcutaneou s vial insulin 2021- No 100U QD Inject 100 Met hodi GLARGINE 3-26 03-[address] (LANTUS) 19:46: 00:00 under [...] times a day. hydrALAZINE 2021-2021- No 100mg Q.[id number] Take 100 [facility] (APRESOLINE 3-25 03-[id number] ) 100 MG 19:46: [...] times a day. hydrALAZINE 2021-2021- No 100mg Q.[id number] Take 100 [facility] (APRESOLINE 3-25 03-[id number] ) 100 MG 19:46: [...] Q.5D Take 1 Meth [facility] (COREG) 25 08-1328 tablet (25 st MG tablet 00:00: 00:00 mg total) Ho spita 00 :00 by mouth 2 l (two) times a day for 30 days. hydrALAZINE 2021- No 50mg Q.[id number] Take 1 [facility] (APRESOLINE 08-13- [id number] tablet (50 st ) 50 MG 00:00: 00:00 3D mg total) [facility] tablet 00 :00 by mouth l every 8 (eight) hours for 30 days. insulin 2021- No 12U QD Inject Methodi GLARGINE 3-25 04-[address] (LANTUS) 00:00: 00:00 (12 Units Hos keo 100 unit/mL 00 :00 total) l injection under the (vial) skin nightly for 30 days. carvediloL 2021- No 25mg Q.5D Take 1 Meth [facility] (COREG) 25 08-1328 tablet (25 st MG tablet 00:00: 00:00 mg total) Ho spita 00 :00 by mouth 2 l (two) times a day for 30 days. hydrALAZINE 2021- No 50mg Q.[id number] Take 1 [facility] (APRESOLINE 08-13 [id number] tablet (50 st ) 50 MG 00:00: 00:00 3D mg total) [facility] tablet 00 :00 by mouth l every 8 (eight) hours for 30 days. insulin 2021- No 20U QD Inject 0.2 [facility] GLARGINE 06-05-15 mL (20 st (LANTUS) 00:00: 05:59 Units [...] day with meals for 30 days. isosorbide 2021-2021- No 60mg QD Take 1 Meth ramiro [...] morning for 30 days. levalbutero 2021- No [id number] 1.25mg Q8H Take 3 mL Methodi l [...] for 30 days. insulin 2021- No 5U Q.[id number] Inject M ethodi LISPRO 06-04 [id number] 0.05 mL (5 st (ADMELOG) 00:00: 05:59 3D Units Hospit a 100 unit/mL 00 :00 total) l subcutaneou under the s vial skin 3 (three) times a day with meals for 30 days. nystatin 2022-0 2022- No Apply [facility] (MYCOSTATIN 1-14 02-[address] ) 100,000 00:00: 05:59 as needed Ho spita unit/gram 00 :00 (rash) for l powder up to 30 days. budesonide 2020-05 Yes 3mg Q.[id number] Take 3 mg [facility] EC 2-12 [id number] by mouth 3 st (ENTOCORT 00:00: 3D (three) Hospi ta EC) 3 mg 24 00 times a l hr capsule day. budesonide 2020-05 Yes 3mg Q.[id number] Take 3 mg [facility] EC 2-12 [id number] by mouth 3 [address] (ENTOCORT 00:00: 3D (three) Hospi ta EC) 3 mg 24 00 times a l hr capsule day. budesonide 2020-05 Yes 3mg Q.[id number] Take 3 mg [facility] EC 2-12 [id number] by mouth 3 st (ENTOCORT 00:00: 3D (three) Hospi ta EC) 3 mg 24 00 times a l hr capsule day. budesonide 2020-05 Yes 3mg Q.[id number] Take 3 mg [facility] EC 2-12 [id number] by mouth 3 st (ENTOCORT 00:00: 3D (three) Hospi ta EC) 3 mg 24 00 times a l hr capsule day. budesonide 2020-05 Yes 3mg Q.[id number] Take 3 mg [facility] EC 2-12 [id number] by mouth 3 st (ENTOCORT 00:00: 3D [...] Under breast and between legs allopurinol Yes [id number] 150mg Take 150 Univers (ZYLOPRIM) 1-04 mg by ity of 100 mg 15:21: mouth [place] tablet 32 daily. Medical Branch CALCIUM Yes .25mg Take 0.25 Univ ers CARBONATE/V 1-04 mg by ity of ITAMIN D3 15:21: mouth [place] (VITAMIN 32 daily. Medical D-3 ORAL) Branch allopurinol Yes [id number] 150mg Take 150 Univers (ZYLOPRIM) 1-04 mg by ity of 100 mg 15:21: mouth [place] tablet 32 daily. Medical Branch CALCIUM Yes .25mg Take 0.25 Univ ers CARBONATE/V 1-04 mg by ity of ITAMIN D3 15:21: mouth [place] (VITAMIN 32 daily. Medical D-3 ORAL) Branch allopurinol Yes [id number] 150mg Take 150 Univers (ZYLOPRIM) 1-04 mg by ity of 100 mg 15:21: mouth [place] tablet 32 daily. Medical Branch CALCIUM Yes .25mg Take 0.25 Univ ers CARBONATE/V 1-04 mg by ity of ITAMIN D3 15:21: mouth [place] (VITAMIN 32 daily. Medical D-3 ORAL) Branch allopurinol Yes [id number] 150mg Take 150 Univers (ZYLOPRIM) 1-04 mg by ity of 100 mg 15:21: mouth [place] tablet 32 daily. Medical Branch CALCIUM Yes .25mg Take 0.25 Univ ers CARBONATE/V 1-04 mg by ity of ITAMIN D3 15:21: mouth [place] (VITAMIN 32 daily. Medical D-3 ORAL) Branch allopurinol Yes [id number] 150mg Take 150 Univers (ZYLOPRIM) 1-04 mg by ity of 100 mg 15:21: mouth [place] tablet 32 daily. Medical Branch CALCIUM Yes .25mg Take 0.25 Univ ers CARBONATE/V 1-04 mg by ity of ITAMIN D3 15:21: mouth [place] (VITAMIN 32 daily. Medical D-3 ORAL) Branch allopurinol Yes [id number] 150mg Take 150 Univers (ZYLOPRIM) 1-04 mg by ity of 100 mg 15:21: mouth [place] tablet 32 daily. Medical Branch allopurinol Yes [id number] 150mg Take 150 Univers (ZYLOPRIM) 1-04 mg by ity of 100 mg 15:21: mouth [place] tablet 32 daily. Medical Branch CALCIUM Yes .25mg Take 0.25 Univ ers CARBONATE/V 1-04 mg by ity of ITAMIN D3 15:21: mouth [place] (VITAMIN 32 daily. Medical D-3 ORAL) Branch allopurinol Yes [id number] 150mg Take 150 Univers (ZYLOPRIM) 1-04 mg [...] daily. Medical D-3 ORAL) Branch allopurinol Yes [id number] 150mg Take 150 Univers (ZYLOPRIM) 1-04 mg by ity of 100 mg 15:21: mouth [place] tablet 32 daily. Medical Branch CALCIUM Yes .25mg Take 0.25 Univ ers CARBONATE/V 1-04 mg by ity of ITAMIN D3 15:21: mouth [place] (VITAMIN 32 daily. Medical D-3 ORAL) Branch allopurinol Yes [id number] 150mg Take 150 Univers (ZYLOPRIM) 1-04 mg by ity of 100 mg 15:21: mouth [place] tablet 32 daily. Medical Branch CALCIUM Yes .25mg Take 0.25 Univ ers CARBONATE/V 1-04 mg by ity of ITAMIN D3 15:21: mouth [place] (VITAMIN 32 daily. Medical D-3 ORAL) Branch allopurinol Yes [id number] 150mg Take 150 Univers (ZYLOPRIM) 1-04 mg by ity of 100 mg 15:21: mouth [place] tablet 32 daily. Medical Branch CALCIUM Yes .25mg Take 0.25 Univ ers CARBONATE/V 1-04 mg by ity of ITAMIN D3 15:21: mouth [place] (VITAMIN 32 daily. Medical D-3 ORAL) Branch furosemide Yes [id number] 40mg Take 40 mg Univers (LASIX) 20 1-04 by mouth ity o f mg tablet 15:19: daily. [address] furosemide Yes [id number] 40mg Take 40 mg Univers (LASIX) 20 1-04 by mouth ity o f mg tablet 15:19: daily. [address] furosemide Yes [id number] 40mg Take 40 mg Univers (LASIX) 20 1-04 by mouth ity o f mg tablet 15:19: daily. [address] furosemide Yes [id number] 40mg Take 40 mg Univers (LASIX) 20 1-04 by mouth ity o f mg tablet 15:19: daily. [address] furosemide Yes [id number] 40mg Take 40 mg Univers (LASIX) 20 1-04 by mouth ity o f mg tablet 15:19: daily. [address] furosemide Yes [id number] 40mg Take 40 mg Univers (LASIX) 20 1-04 by mouth ity o f mg tablet 15:19: daily. [address] furosemide Yes [id number] 40mg Take 40 mg Univers (LASIX) 20 1-04 by mouth ity o f mg tablet 15:19: daily. [address] furosemide Yes [id number] 40mg Take 40 mg Univers (LASIX) 20 1-04 by mouth ity o f mg tablet 15:19: daily. [address] furosemide Yes [id number] 40mg Take 40 mg Univers (LASIX) 20 1-04 by mouth ity o f mg tablet 15:19: daily. [address] furosemide Yes [id number] 40mg Take 40 mg Univers (LASIX) 20 1-04 by mouth ity o f mg tablet 15:19: daily. [address] furosemide 0 Yes [id number] 40mg Take 40 mg Univers (LASIX) 20 1-04 by mouth ity o f mg tablet 15:19: daily. [address] Golimumab 0 Yes [id number] inject U nivers (SIMPONI) 1-04 under the ity o f 50 mg/0.5 15:18: skin. [facility] 20 Infusion Medical injection every 8 Branch weeks for rheumatoid arthritis. Golimumab Yes [id number] inject U nivers (SIMPONI) 1-04 under the ity o f 50 mg/0.5 15:18: skin. [place] mL 20 Infusion Medical injection every 8 Branch weeks for rheumatoid arthritis. Golimumab 2017 Yes [id number] inject U nivers (SIMPONI) 1-04 under the ity o f 50 mg/0.5 15:18: skin. [place] mL 20 Infusion Medical injection every 8 Branch weeks for rheumatoid arthritis. Golimumab 2017 Yes [id number] inject U nivers (SIMPONI) 1-04 under the ity o f 50 mg/0.5 15:18: skin. [place] mL 20 Infusion Medical injection every 8 Branch weeks for rheumatoid arthritis. Golimumab Yes [id number] inject U nivers (SIMPONI) 1-04 under the ity o f 50 mg/0.5 15:18: skin. [place] mL 20 Infusion Medical injection every 8 Branch weeks for rheumatoid arthritis. Golimumab Yes [id number] inject U nivers (SIMPONI) 1-04 under the ity o f 50 mg/0.5 15:18: skin. [place] mL 20 Infusion Medical injection every 8 Branch weeks for rheumatoid arthritis. Golimumab Yes [id number] inject U nivers (SIMPONI) 1-04 under the ity o f 50 mg/0.5 15:18: skin. [place] mL 20 Infusion Medical injection every 8 Branch weeks for rheumatoid arthritis. Golimumab 2017 Yes [id number] inject U nivers (SIMPONI) 1-04 under the ity o f 50 mg/0.5 15:18: skin. [place] mL 20 Infusion Medical injection every 8 Branch weeks for rheumatoid arthritis. Golimumab 2017 Yes [id number] inject U nivers (SIMPONI) 1-04 under the ity o f 50 mg/0.5 15:18: skin. [place] mL 20 Infusion Medical injection every 8 Branch weeks for rheumatoid arthritis. Golimumab 2017- Yes [id number] inject U nivers (SIMPONI) 1-04 under the ity o f 50 mg/0.5 15:18: skin. [place] mL 20 Infusion Medical injection every 8 Branch weeks for rheumatoid arthritis. Golimumab 2017 Yes [id number] inject U nivers (SIMPONI) 1-04 under the ity o f 50 mg/0.5 15:18: skin. [place] mL 20 Infusion Medical injection every 8 Branch weeks for rheumatoid arthritis. linagliptin 2017-0 Yes [id number] Take by [facility] (PiAuto) 1-04 mouth. ity of 5 mg tablet 14:33: [place] [facility] apixaban [id number] Yes 5mg Take [...] 2 [place] tablet 03 (two) Medical times [place] daily with meals. linagliptin Yes [id number] Take by [facility] (PiAuto) 1-04 mouth. ity of 5 mg tablet 14:33: [place] [facility] Branch apixaban 2016-0 Yes 5mg Take 5 [...] 2 [place] tablet 03 (two) Medical times [place] daily with meals. linagliptin 2017-0 Yes [id number] Take by Univers (TRADJENTA) 1-04 mouth. ity of 5 mg tablet 14:33: [place] [facility] linagliptin 2017-0 Yes [id number] Take by Univers (TRADJENTA) 1-04 mouth. ity of 5 mg tablet 14:33: [place] [facility] apixaban 2017-0 Yes 5mg Take [...] 2 [place] tablet 03 (two) Medical times [place] daily with meals. linagliptin 2017-0 Yes [id number] Take by Univers (TRADJENTA) 1-04 mouth. ity of 5 mg tablet 14:33: [place] [facility] apixaban 2017-0 Yes 5mg Take [...] Branch daily with meals. linagliptin 2017-0 Yes [id number] Take by Univers (TRADJENTA) 1-04 mouth. ity [...] Medical times Branch daily with meals. hydralAZINE 0 Yes 50mg Take 50 mg Univers (APRESOLINE 1-04 by mouth ity of ) 50 mg 14:33: every 6 [place] tablet 03 (six) Medical hours. Branch isosorbide [id number] Yes 60mg Take 60 mg U nivers mononitrate 1-04 by mouth. ity of (IMDUR) 60 14:33: [place] mg 24 hr 03 Medical tablet Branch carvedilol 2016-0 Yes 12.5mg Take 12.5 Univers (COREG) 1-04 mg by ity of 12.5 mg 14:33: mouth 2 [place] tablet 03 (two) Medical times Branch daily with meals. linagliptin 2017-0 Yes [id number] Take by Univers (TRADJENTA) 1-04 mouth. ity [...] 2 [place] tablet 03 (two) Medical times [place] daily with meals. linagliptin 2017-0 Yes [id number] Take by Univers (TRADJENTA) 1-04 mouth. ity [...] 24 hr 03 Medical tablet Branch carvedilol 2016-0 Yes 12.5mg Take 12.5 Univers (COREG) 1-04 mg by ity of 12.5 mg 14:33: mouth 2 [place] tablet 03 (two) Medical times [place] daily with meals. linagliptin 2017-0 Yes [id number] Take by Univers (TRADJENTA) 1-04 mouth. ity [...] 2 [place] tablet 03 (two) Medical times [place] daily with meals. linagliptin 2017-0 Yes [id number] Take by Univers (TRADJENTA) 1-04 mouth. ity [...] 2 [place] tablet 03 (two) Medical times [place] daily with meals. linagliptin 2016-0 Yes [id number] Take by Univers (TRADJENTA) 1-04 mouth. ity [...] 24 hr 03 Medical tablet Branch carvedilol 2016- Yes 12.5mg Take 12.5 Univers (COREG) 1-04 mg by ity of 12.5 mg 14:33: mouth 2 [place] tablet 03 (two) [facility] times Branch daily with meals. pramipexole Yes [id number] 2mg Take 2 Univers (MIRAPEX) 1 1-04 tablets by [place] y [place] mg tablet 00:[place]: [place] 00 bed[place] [facility] Branch pramipexole Yes [id number] 2mg Take 2 Univers (MIRAPEX) 1 1-04 tablets by it y of mg tablet 00:00: [place] 00 bedtime[place] [facility] Branch pramipexole Yes [id number] 2mg Take 2 Univers (MIRAPEX) 1 1-04 tablets by it y of mg tablet 00:00: [place] 00 bedtime[place] [facility] Branch pramipexole Yes [id number] 2mg Take 2 Univers (MIRAPEX) 1 1-04 tablets by it y of mg tablet 00:00: [place] 00 bedtime. [facility] Branch pramipexole Yes [id number] 2mg Take 2 Univers (MIRAPEX) 1 1-04 tablets by it y of mg tablet 00:00: [place] 00 bedtime[place] [facility] Branch pramipexole Yes [id number] 2mg Take 2 Univers (MIRAPEX) 1 1-04 tablets by it y of mg tablet 00:00: [place] 00 bed[place] [facility] pramipexole Yes [id number] 2mg Take 2 Univers (MIRAPEX) 1 1-04 tablets by it y of mg tablet 00:00: [place] 00 bedtime. [facility] Branch pramipexole Yes [id number] 2mg Take 2 Univers (MIRAPEX) 1 1-04 tablets by it y of mg tablet 00:00: [place] 00 bedtime. [facility] Branch pramipexole Yes [id number] 2mg Take 2 Univers (MIRAPEX) 1 1-04 tablets by it y of mg tablet 00:00: [place] 00 bedtime[place] [facility] pramipexole Yes [id number] 2mg Take 2 Univers (MIRAPEX) 1 1-04 tablets by it y of mg tablet 00:00: [place] 00 bedtime. [facility] Branch pramipexole 2017-0 Yes [id number] 2mg Take 2 Univers (MIRAPEX) 1 1-04 [...] Medical times Branch daily. glipiZIDE 2015-05 Yes [id number] 10mg Take 1 Un kevan XL 1-16 tablet by ity of (GLUCOTROL 00:00: mouth 2 [place] XL) 10 mg 00 (two) Medical 24 hr times Branch tablet daily. glipiZIDE 2015-05 Yes [id number] 10mg Take 1 [place] XL 1-16 tablet by ity of (GLUCOTROL 00:00: mouth 2 [place] XL) 10 mg 00 (two) Medical 24 hr times Branch tablet daily. glipiZIDE 2015-05 Yes [id number] 10mg Take 1 Un [place] XL 1-16 tablet by ity of (GLUCOTROL 00:00: mouth 2 [place] XL) 10 mg 00 (two) Medical 24 hr times Branch tablet daily. glipiZIDE 2015-05 Yes [id number] 10mg Take 1 [place] XL 1-16 tablet by ity of (GLUCOTROL 00:00: mouth 2 [place] XL) 10 mg 00 (two) Medical 24 hr times Branch tablet daily. glipiZIDE 2015-05 Yes [id number] 10mg Take 1 [place] XL 1-16 tablet by ity of (GLUCOTROL 00:00: mouth 2 [place] XL) 10 mg 00 (two) Medical 24 hr times Branch tablet daily. glipiZIDE 2015-05 Yes [id number] 10mg Take 1 [place] XL 1-16 tablet by ity of (GLUCOTROL 00:00: mouth 2 [place] XL) 10 mg 00 (two) Medical 24 hr times Branch tablet daily. glipiZIDE 2015-05 Yes [id number] 10mg Take 1 [place] XL 1-16 tablet by ity of (GLUCOTROL 00:00: mouth 2 [place] XL) 10 mg 00 (two) Medical 24 hr times Branch tablet daily. glipiZIDE 2015-05 Yes [id number] 10mg Take 1 [place] XL 1-16 tablet by ity of (GLUCOTROL 00:00: mouth 2 [place] XL) 10 mg 00 (two) Medical 24 hr times Branch tablet daily. glipiZIDE 2015-05 Yes [id number] 10mg Take 1 [place] XL 1-16 tablet by ity of (GLUCOTROL 00:00: mouth 2 [place] XL) 10 mg 00 (two) Medical 24 hr times Branch tablet daily. glipiZIDE 2015-05 Yes [id number] 10mg Take 1 [place] XL 1-16 tablet by ity of (GLUCOTROL 00:00: mouth 2 [place] XL) 10 mg 00 (two) Medical 24 hr times Branch tablet daily. glipiZIDE 2015-05 Yes [id number] 10mg Take 1 [place] XL 1-16 tablet by ity of (GLUCOTROL 00:00: mouth 2 [place] XL) 10 mg 00 (two) Medical 24 hr times Branch tablet daily. atorvastati 2015-05 Yes [id number] 10mg Take 1 Univers n (LIPITOR) 1-02 tablet by ity of 10 mg 00:00: mouth at [place] tablet 00 bedtime. Medical Branch atorvastati 2015-05 Yes [id number] 10mg Take 1 Univers n (LIPITOR) 1-02 tablet by ity of 10 mg 00:00: mouth at [place] tablet 00 bedtime. Medical Branch atorvastati 2015-05 Yes [id number] 10mg Take 1 Univers n (LIPITOR) 1-02 tablet by ity of 10 mg 00:00: mouth at [place] tablet 00 bedtime. Medical Branch atorvastati 2015-05 Yes [id number] 10mg Take 1 Univers n (LIPITOR) 1-02 tablet by ity of 10 mg 00:00: mouth at [place] tablet 00 bedtime. Medical Branch atorvastati 2015-05 Yes [id number] 10mg Take 1 Univers n (LIPITOR) 1-02 tablet by ity of 10 mg 00:00: mouth at [place] tablet 00 bedtime. Medical Branch atorvastati 2015-05 Yes [id number] 10mg Take 1 Univers n (LIPITOR) 1-02 tablet by ity of 10 mg 00:00: mouth at [place] tablet 00 bedtime. Medical Branch atorvastati 2015-05 Yes [id number] 10mg Take 1 Univers n (LIPITOR) 1-02 tablet by ity of 10 mg 00:00: mouth at [place] tablet 00 bedtime. Medical Branch atorvastati 2015-05 Yes [id number] 10mg Take 1 Univers n (LIPITOR) 1-02 tablet by ity of 10 mg 00:00: mouth at [place] tablet 00 bedtime. Medical Branch atorvastati 2015-05 Yes [id number] 10mg Take 1 Univers n (LIPITOR) 1-02 tablet by ity of 10 mg 00:00: mouth at [place] tablet 00 bedtime. Medical Branch atorvastati 2015- Yes [id number] 10mg Take 1 Univers n (LIPITOR) 1-02 tablet by ity of 10 mg 00:00: mouth at [place] tablet 00 bedtime. Medical Branch atorvastati 2015-05 Yes [id number] 10mg Take 1 Univers n (LIPITOR) 1-02 tablet by ity of 10 mg 00:00: mouth at [place] tablet 00 bedtime. Medical Branch Immunizations Ordered Immunization Filled Immunization Date Status Commen ts Source Name Name PFIZER COVID-19 MRNA 2021-06-10 Completed [facility] odist VACCINATION 00:00:00 [facility] PFIZER COVID-19 MRNA 2021-06-10 Completed Meth odist VACCINATION 00:00:00 [facility] PFIZER COVID-19 MRNA 2021-06-10 Completed Meth odist VACCINATION 00:00:00 [facility] PFIZER COVID-19 MRNA 2021-06-10 Completed Meth odist VACCINATION 00:00:00 [facility] PFIZER COVID-19 MRNA 2021-06-10 Completed Meth odist VACCINATION 00:00:00 [facility] PFIZER COVID-19 MRNA 2020-07-09 Completed Meth odist VACCINATION 00:00:00 [facility] PFIZER COVID-19 MRNA 2020-07-09 Completed Meth odist VACCINATION 00:00:00 [facility] PFIZER COVID-19 MRNA 2020-07-09 Completed Meth odist VACCINATION 00:00:00 [facility] PFIZER COVID-19 MRNA 2020-07-09 Completed Meth odist VACCINATION 00:00:00 [facility] PFIZER COVID-19 MRNA 2020-07-09 Completed Meth odist VACCINATION 00:00:00 [facility] PFIZER COVID-19 MRNA 2020-06-18 Completed Meth odist VACCINATION 00:00:00 [facility] PFIZER COVID-19 MRNA 2020-06-18 Completed Meth odist VACCINATION 00:00:00 [facility] PFIZER COVID-19 MRNA 2020-06-18 Completed Meth odist VACCINATION 00:00:00 [facility] PFIZER COVID-19 MRNA 2020-06-18 Completed Meth odist VACCINATION 00:00:00 [facility] PFIZER COVID-19 MRNA 2020-06-18 Completed Meth odist VACCINATION 00:00:00 [facility] Pneumococcal 2020-04-29 Completed [facility] Polysaccharide 00:00:00 [facility] Zoster 2020-04-29 Completed [facility] 00:[facility]:00 [facility] Pneumococcal 2020-04-29 Completed [facility] Polysaccharide 00:00:00 [facility] Zoster 2020-04-29 Completed [facility] 00:[facility]:00 [facility] Pneumococcal 2020-04-29 Completed [facility] Polysaccharide 00:00:00 [facility] Zoster 2020-04-29 Completed [facility] 00:00:00 Hospital Pneumococcal 2020-04-29 Completed [facility] Polysaccharide 00:00:00 Hospital Zoster 2020-04-29 Completed [facility] 00:00:00 Hospital Pneumococcal 2020-04-29 Completed [facility] Polysaccharide 00:00:00 Hospital Zoster 2020-04-29 Completed [facility] 00:00:00 Hospital Pneumococcal 2019-05-13 Completed [facility] Conjugate 13-[facility]ent 00:00:00 [facility] 2019-05-13 Completed [facility] Conjugate 13-Valent 00:00:00 [facility]pi true Pneumococcal 2019-05-13 Completed [facility] Conjugate 13-Valent 00:00:00 Hospi true Pneumococcal 2019-05-13 Completed [facility] Conjugate 13-Valent 00:00:00 [facility] true Pneumococcal 2019-05-13 Completed [facility] Conjugate 13-Valent 00:00:00 [facility] FLUCELVAX QUAD PF 2019-03-[address] 00:00:00 [facility] FLUCELVAX QUAD PF 2019-03-[address] 00:00:00 [facility] FLUCELVAX QUAD PF 2019-03-[address] 00:00:00 [facility] FLUCELVAX QUAD PF 2019-03-[address] 00:00:00 [facility] FLUCELVAX QUAD PF 2019-03-05 Completed Methodi [...] true Tdap 2016-02-03 Completed [facility] 00:00:00 Hospital Influenza Virus 2016-02-03 Completed Universit y of Vaccine 00:00:00 [facility] [place] Pneumococcal 13 2016-02-03 Completed Universit y of Conjugate, PCV13 00:00:00 [facility] dical (Prevnar 13) Branch TDAP 2016-02-03 Completed University of 00:00:00 [facility] [place] Influenza, 2016-02-03 Completed [facility] Unspecified 00:00:00 Hospital Pneumococcal 2016-02-03 Completed [facility] Conjugate 13-Valent 00:00:00 Hospi true Tdap 2016-02-03 Completed [facility] 00:00:00 Hospital Influenza Virus 2016-02-03 Completed Universit y of Vaccine 00:00:00 [facility] [place] Pneumococcal 13 2016-02-03 Completed Universit y of Conjugate, PCV13 00:00:00 [place] [facility] dical (Prevnar 13) Branch TDAP 2016-02-03 Completed University of 00:00:00 [facility] [place] Influenza Virus 2016-02-03 Completed Universit y of Vaccine 00:00:00 [facility] [place] Pneumococcal 13 2016-02-03 Completed Universit y of Conjugate, PCV13 00:00:00 [facility] dical (Prevnar 13) Branch [facility] 2016-02-03 Completed University of 00:00:00 [facility] [place] Influenza Virus 2016-02-03 Completed Universit y of Vaccine 00:00:00 [facility] [place] Pneumococcal 13 2016-02-03 Completed Universit y of Conjugate, PCV13 00:00:00 [facility] dical (Prevnar 13) Branch [facility] 2016-02-03 Completed University of 00:00:00 [facility] [place] Influenza Virus 2016-02-03 Completed Universit y of Vaccine 00:00:00 [facility] [place] Pneumococcal 13 2016-02-03 Completed Universit y of Conjugate, PCV13 00:00:00 [facility] dical (Prevnar 13) Branch [facility] 2016-02-03 Completed University of 00:00:00 [facility] [place] Influenza Virus 2016-02-03 Completed Universit y of Vaccine 00:00:00 [facility] [place] Pneumococcal 13 2016-02-03 Completed Universit y of Conjugate, PCV13 00:00:00 [facility] dical (Prevnar 13) Branch [facility] 2016-02-03 Completed University of 00:00:00 [facility] [place] Influenza Virus 2016-02-03 Completed Universit y of Vaccine 00:00:00 [facility] [place] Pneumococcal 13 2016-02-03 Completed Universit y of Conjugate, PCV13 00:00:00 [facility] dical (Prevnar 13) Branch [facility] 2016-02-03 Completed University of 00:00:00 [facility] [place] Influenza Virus 2016-02-03 Completed Universit y of Vaccine 00:00:00 [facility] [place] Pneumococcal 13 2016-02-03 Completed Universit y of Conjugate, PCV13 00:00:00 [facility] dical (Prevnar 13) Branch [facility] 2016-02-03 Completed University of 00:00:00 [facility] [place] Influenza Virus 2016-02-03 Completed Universit y of Vaccine 00:00:00 [facility] [place] Pneumococcal 13 2016-02-03 Completed Universit y of Conjugate, PCV13 00:00:00 [facility] dical (Prevnar 13) Branch [facility] 2016-02-03 Completed University of 00:00:00 [facility] [place] Influenza Virus 2016-02-03 Completed Universit y of Vaccine 00:00:00 [facility] [place] Pneumococcal 13 2016-02-03 Completed Universit y of Conjugate, PCV13 00:00:00 [place] [facility] dical (Prevnar 13) Branch TDAP 2016-02-03 Completed University of 00:00:00 [facility] [place] Influenza Virus 2016-02-03 Completed Universit y of Vaccine 00:00:00 [facility] [place] Pneumococcal 13 2016-02-03 Completed Universit y of Conjugate, PCV13 00:00:00 [facility] dical (Prevnar 13) Branch TDAP 2016-02-03 Completed University of 00:00:00 [facility] [place] Influenza, 2015-01-05 Completed [facility] Unspecified 00:00:00 Hospital [...] 2015-01-05 Completed Universit y of Vaccine 00:00:00 [facility] [place] Pneumococcal 13 2015-01-05 Completed Universit y of Conjugate, PCV13 00:00:00 [facility] dical (Prevnar 13) Branch Tetanus/Diptheria 2015-01-05 Completed Univers ity of 00:00:00 [facility] [place] Influenza Virus 2015-01-05 Completed Universit y of Vaccine 00:00:00 [facility] [place] Pneumococcal 13 2015-01-05 Completed Universit y of Conjugate, PCV13 00:00:00 [facility] dical (Prevnar 13) Branch Tetanus/Diptheria 2015-01-05 Completed Univers ity of 00:00:00 [facility] [place] Influenza Virus 2015-01-05 Completed Universit y of Vaccine 00:00:00 [facility] [place] Pneumococcal 13 2015-01-05 Completed Universit y of Conjugate, PCV13 00:00:00 [facility] dical (Prevnar 13) Branch Tetanus/Diptheria 2015-01-05 Completed Univers ity of 00:00:00 [facility] [place] Influenza Virus 2015-01-05 Completed Universit y of Vaccine 00:00:00 [facility] [place] Pneumococcal 13 2015-01-05 Completed Universit y of Conjugate, PCV13 00:00:00 [facility] dical (Prevnar 13) Branch Tetanus/Diptheria 2015-01-05 Completed Univers ity of 00:00:00 [facility] [place] Influenza Virus 2015-01-05 Completed Universit y of Vaccine 00:00:00 [facility] [place] Pneumococcal 13 2015-01-05 Completed Universit y of Conjugate, PCV13 00:00:00 [facility] dical (Prevnar 13) Branch Tetanus/Diptheria 2015-01-05 Completed Univers ity of 00:00:00 [facility] [place] Influenza Virus 2015-01-05 Completed Universit y of Vaccine 00:00:00 [facility] [place] Pneumococcal 13 2015-01-05 Completed Universit y of Conjugate, PCV13 00:00:00 [facility] dical (Prevnar 13) Branch Tetanus/Diptheria 2015-01-05 Completed Univers ity of 00:00:00 [facility] [place] Influenza Virus 2015-01-05 Completed Universit y of Vaccine 00:00:00 [facility] [place] Pneumococcal 13 2015-01-05 Completed Universit y of Conjugate, PCV13 00:00:00 [facility] dical (Prevnar 13) Branch Tetanus/Diptheria 2015-01-05 Completed Univers ity of 00:00:00 [facility] [place] Influenza Virus 2015-01-05 Completed Universit y of Vaccine 00:00:00 [facility] [place] Pneumococcal 13 2015-01-05 Completed Universit y of Conjugate, PCV13 00:00:00 [facility] dical (Prevnar 13) Branch Tetanus/Diptheria 2015-01-05 Completed Univers ity of 00:00:00 [facility] [place] Influenza Virus 2015-01-05 Completed Universit y of Vaccine 00:00:00 [facility] [place] Pneumococcal 13 2015-01-05 Completed Universit y of Conjugate, PCV13 00:00:00 [place] [facility] dical (Prevnar 13) Branch Tetanus/Diptheria 2015-01-05 Completed Univers ity of 00:00:00 [facility] [place] Influenza Virus 2015-01-05 Completed Universit y of Vaccine 00:00:00 [facility] [place] Pneumococcal 13 2015-01-05 Completed Universit y of Conjugate, PCV13 00:00:00 [facility] dical (Prevnar 13) Branch Tetanus/Diptheria 2015-01-05 Completed Univers ity of 00:00:00 [facility] [place] Influenza Virus 2015-01-05 Completed Universit y of Vaccine 00:00:00 [facility] [place] Pneumococcal 13 2015-01-05 Completed Universit y of Conjugate, PCV13 00:00:00 [facility] dical (Prevnar 13) Branch Tetanus/Diptheria 2015-01-05 Completed Univers ity of 00:00:00 [facility] [place] Pneumococcal 2013-05-21 Completed [facility] Conjugate 00:00:00 Hospital [...] Hospital Diastolic blood 2022-01-18 12:00:00 51 mm[Hg] [facility] Heart rate 2022-01-18 12:00:00 80 /min [facility] Body temperature 2022-01-18 12:00:00 36.78 Mena [facility] Respiratory rate 2022-01-18 12:00:00 18 /min [facility] Oxygen saturation in 2022-01-18 12:00:00 100 /min [facility] Arterial blood by Medical Ce nter Pulse oximetry Body height 2022-01-14 10:00:00 162.6 cm [facility] Body weight 2022-01-14 10:00:00 68.04 kg [facility] BMI 2022-01-14 10:00:00 25.75 kg/m2 [facility] Systolic blood 2021-09-16 23:24:00 145 mm[Hg] [facility] pressure Diastolic blood 2021-09-16 23:24:00 78 mm[Hg] [facility] pressure Heart rate 2021-09-16 23:00:00 80 /min [facility] Respiratory rate 2021-09-16 23:00:00 19 /min [facility] Body temperature 2021-09-16 19:25:00 36.28 Mena [facility] Oxygen saturation in 2021-09-16 15:57:32 98 /min [facility] Arterial blood by Pulse oximetry Body height 2021-09-07 12:58:00 162.6 cm [facility] Body weight 2021-09-07 12:58:00 67.3 kg [facility] BMI 2021-09-07 12:58:00 25.47 kg/m2 [facility] Procedures Procedure Date / Time Performing Source Performed Clinician EXTERNAL PROVIDER RECORDS 2022-07-05 Doctor Univer sity of 06:01:00 Unassigned, No [facility] EXTERNAL PROVIDER RECORDS 2022-04-01 Doctor Univer sity of 06:01:00 Unassigned, No [facility] POCT-GLUCOSE METER 2022-01-[address] [facility] 12:10:00 [facility] Center HEMODIALYSIS INPATIENT 2022-01-[address] [facility] 07:52:23 [facility] BASIC METABOLIC PANEL 2022-01-18 Reji[facility] 06:09:00 [facility] POCT-GLUCOSE METER 2022-01-17 Reji, Mauro [facility] 19:46:00 Medical Center POCT-GLUCOSE METER 2022-01-17 Reji, Mauro [facility] 17:06:00 [facility] Center POCT-GLUCOSE METER 2022-01-17 Reji, Mauro [facility] 12:13:00 Medical Center POCT-GLUCOSE METER 2022-01-17 Reji, Mauro [facility] 08:29:00 [facility] BASIC METABOLIC PANEL 2022-01-17 Reji, Mauro [...] 2022-01-15 Reji, Mauro [facility] 12:31:00 [facility] HEMODIALYSIS INPATIENT 2022-01-[address] [facility] 10:06:42 [facility] POCT-GLUCOSE METER 2022-01-15 Reji, Mauro [facility] 07:32:00 Medical [place] BASIC METABOLIC PANEL 2022-01-15 [facility], [facility] 03:58:00 [facility] POCT-GLUCOSE METER 2022-01-14 [facility], Mauro [facility] 20:42:00 [facility] POCT-GLUCOSE METER 2022-01-14 [facility], Mauro [facility] 15:38:00 [facility] SARS-COV2/RT-PCR ([facility]) 2022-01-14 [facility] [place] [facility] 14:57:00 [facility] XR CHEST 1 VIEW PORTABLE / BEDSIDE 2022-01-14 [facility] [place] [facility] 14:38:00 [facility] POCT-GLUCOSE METER 2022-01-14 [facility], Mauro [facility] 12:02:00 [facility] IR CENTRAL VENOUS CATHETER 2022-01-14 [facility] PLACEMENT (JUGULAR OR FEMORAL) 11:14:00 [facility] POCT-GLUCOSE METER 2022-01-14 [facility], Mauro [facility] 08:24:00 [facility] CBC (HEMOGRAM ONLY) 2022-01-14 [facility], Mauro [facility] 04:11:00 [facility] BASIC METABOLIC PANEL 2022-01-14 [facility] 04:11:00 [facility] POCT-GLUCOSE METER 2022-01-13 [facility], Mauro [facility] 19:39:00 [facility] POCT-GLUCOSE METER 2022-01-13 [facility], Mauro [facility] 16:37:00 [facility] POCT-GLUCOSE METER 2022-01-13 [facility], Mauro [facility] 13:51:00 [facility] BLOOD GAS, ARTERIAL 2022-01-13 [facility], Mauro [facility] 08:41:00 [facility] Center POCT-GLUCOSE METER 2022-01-13 [facility], Mauro [facility] 08:25:00 [facility] Center CT BRAIN WITHOUT IV CONTRAST 2022-01-13 [facility], Mauro [facility] 07:50:00 Medical [place] COMPREHENSIVE METABOLIC PANEL 2022-01-13 [facility] 07:29:00 [facility] TROPONIN I 2022-01-13 Reji, Mauro [facility] 07:29:00 [facility] TSH/FREE T4 IF INDICATED 2022-01-13 Reji, Mauro [facility] 07:29:00 [facility] CBC W/PLT COUNT & AUTO 2022-01-13 Reji, [facility]uro [facility] DIFFERENTIAL 07:29:00 [facility] CBC W/PLT COUNT & AUTO 2022-01-13 Reji, Mauro [facility] DIFFERENTIAL 07:29:00 [facility] POCT-GLUCOSE METER 2022-01-13 Reji, Mauro [facility] 07:04:00 [facility] POCT-GLUCOSE METER 2022-01-13 Reji, Mauro [facility] 06:21:00 [facility] POCT-GLUCOSE METER 2022-01-12 Reji, Mauro [facility] 20:53:00 [facility] POCT-GLUCOSE METER 2022-01-12 Reji, Mauro [facility] 19:20:00 [facility] POCT-GLUCOSE METER 2022-01-12 Reji, Mauro [facility] 18:50:00 [facility] POCT-GLUCOSE METER 2022-01-12 Reji, Mauro [facility] 17:58:00 [facility] IR TUNNELED CATHETER INSERTION 2022-01-[address] [facility] 16:30:00 [facility] POCT-GLUCOSE METER 2022-01-12 Reji, Mauro [facility] 12:08:00 [facility] POCT-GLUCOSE METER 2022-01-12 [facility]e Montoya [facility] 08:49:00 [facility] CBC W/PLT COUNT & AUTO 2022-01-12 [facility], Annalee Montoya [facility] DIFFERENTIAL 05:39:00 [facility] BASIC METABOLIC PANEL 2022-01-12 [facility] Mont[facility] 05:39:00 [facility] MAGNESIUM 2022-01-12 Maida, Annalee Montoya [facility] 05:39:00 [facility] PHOSPHORUS 2022-01-12 Maida, Annalee Montoya [facility] 05:39:00 [facility] PROTHROMBIN TIME/INR 2022-01-12 [facility], [facility]oya [facility] 05:39:00 [facility] APTT 2022-01-12 Shieh, Annalee Jan [facility] 05:39:00 [facility] CBC W/PLT COUNT & AUTO 2022-01-12 Shieh, Annalee Montoya [facility] DIFFERENTIAL 05:39:00 [facility] (MANUAL DIFFERENTIAL) 2022-01-12 Shieh, Annalee Montoya [facility] 05:39:00 [facility] POCT-GLUCOSE METER 2022-01-11 Shieh, Annalee Montoya [facility] 19:49:00 [facility] POCT-GLUCOSE METER 2022-01-11 Shieh, Annalee Jan [facility] 17:57:00 [facility] POCT-GLUCOSE METER 2022-01-11 Shieh, Annalee Jan [facility] 12:37:00 [facility] HEMODIALYSIS INPATIENT 2022-01-[address] [facility] 12:29:37 [facility] POCT-GLUCOSE METER 2022-01-11 Shieh, Annalee Jan [facility] 07:49:00 [facility] POCT-GLUCOSE METER 2022-01-10 Shieh, Annalee Jan [facility] 21:16:00 [facility] POCT-GLUCOSE METER 2022-01-10 [facility], Annalee Jan [facility] 15:24:00 [facility] IR TUNNEL CATHETER EXCHANGE 2022-01-[address] [facility] 11:23:00 [facility] POCT-GLUCOSE METER 2022-01-10 [facility], Annalee Jan [facility] 11:21:00 [facility] CBC W/PLT COUNT & AUTO 2022-01-10 Shieh, Annalee Montoya [facility] DIFFERENTIAL 04:13:00 [facility] BASIC METABOLIC PANEL 2022-01-10 Shieh, Annalee Jan [facility] 04:13:00 [facility] MAGNESIUM 2022-01-10 Shieh, Annalee Montoya [facility] 04:13:00 [facility] PHOSPHORUS 2022-01-10 Shieh, Annalee Motnoya [facility] 04:13:00 [facility] APTT 2022-01-[address] [facility] 04:13:00 [facility] CBC W/PLT COUNT & AUTO 2022-01-10 Shieh, Annalee Montoya [facility] 04:13:00 [facility] POCT-GLUCOSE METER 2022-01-09 Shieh, Annalee Jan [facility] 21:15:00 [facility] APTT 2022-01-09 Shieh, Annalee Jan [facility] 19:08:00 [facility] Center POCT-GLUCOSE METER 2022-01-09 Shieh, Annalee Jan [facility] 17:02:00 [facility] POCT-GLUCOSE METER 2022-01-09 Shieh, Annalee Jan [facility] 11:22:00 Medical Center APTT 2022-01-09 Shieh, Annalee Jan [facility] 09:44:00 Medical Center POCT-GLUCOSE METER 2022-01-09 Shieh, Annalee Jan [facility] 07:19:00 [facility] POCT-GLUCOSE METER 2022-01-09 Shieh, Annalee Jan [facility] 05:05:00 [facility] CBC W/PLT COUNT & AUTO 2022-01-09 Shieh, Annalee Jan [facility] 04:57:00 [facility] BASIC METABOLIC PANEL 2022-01-09 Shieh, Annalee Jan [facility] 04:57:00 [facility] Center MAGNESIUM 2022-01-09 Shieh, Annalee Jan [facility] 04:57:00 [facility] Center PHOSPHORUS 2022-01-09 Shieh, Annalee C [facility] 04:57:00 [facility] CBC W/PLT COUNT & AUTO 2022-01-09 Shieh, Annalee Montoya [facility] DIFFERENTIAL 04:57:00 [facility] APTT 2022-01-09 Shieh, Annalee Jan [facility] 00:34:00 [facility] POCT-GLUCOSE METER 2022-01-08 Shieh, Annalee Jan [facility] 16:49:00 Medical Center APTT 2022-01-08 Shieh, Annalee Jan [facility] 16:13:00 [facility] HEMODIALYSIS INPATIENT 2022-01-08 Lexie, Ahmed [facility] 15:47:52 [facility] HEPATITIS B SURFACE ANTIGEN 2022-01-08 Lexie, Ahmed [facility] 15:40:00 [facility] HEPATITIS B SURFACE ANTIBODY 2022-01-08 Lexie, Ahmed [facility] 15:40:00 [facility] POCT-GLUCOSE METER 2022-01-[address] [facility] 12:18:00 [facility] POCT-GLUCOSE METER 2022-01-08 Maida, Annalee Montoya [facility] 07:59:00 [facility] CBC W/PLT COUNT & AUTO 2022-01-08 Maida, Annalee Monotya [facility] 05:27:00 [facility] BASIC METABOLIC PANEL 2022-01-08 [facility] 05:27:00 [facility] MAGNESIUM 2022-01-08 [facility], Annalee Montoya [facility] 05:27:00 [facility] PHOSPHORUS 2022-01-08 [facility], Annalee Montoya [facility] 05:27:00 [facility] HEMOGLOBIN A1C 2022-01-08 Maida, Annalee Montoya [facility] 05:27:00 [facility] CBC W/PLT COUNT & AUTO 2022-01-08 [facility], Annalee Montoya [facility] DIFFERENTIAL 05:27:00 [facility] APTT 2022-01-[address] [facility] 05:26:00 [facility] POCT-GLUCOSE METER 2022-01-07 [facility], Annalee Montoya [facility] 21:01:00 [facility] APTT 2022-01-[address] [facility] 21:00:00 [facility] CARDIAC CATH REPORT - SCAN 2022-01-07 Provider, Default [facility] 00:00:00 Scanning [facility] EKG-SCANNED 2022-01-07 Provider, Default [facility] 00:00:00 Scanning [facility] HEMODIALYSIS 2021-09-16 Marycarmen Matson 20:36:27 [facility] POC GLUCOSE 2021-09-16 Corrine Osuna 15:59:00 Hospital POC GLUCOSE 2021-09-16 Corrine Osuna 11:10:00 Hospital POC GLUCOSE 2021-09-16 Corrine Osuna 01:24:00 [facility] POC GLUCOSE 2021-09-15 Corrine Osuna 20:54:00 Hospital POC GLUCOSE 2021-09-15 Corrine Osuna 16:27:00 Hospital POC GLUCOSE 2021-09-15 Corrine Osuna 12:04:00 Hospital POC GLUCOSE 2021-09-15 Corrine Osuna 11:16:00 Hospital POC GLUCOSE 2021-09-15 Corrine Osuna 01:21:00 Hospital POC GLUCOSE 2021-09-14 Corrine Osuna 21:57:00 Hospital POC GLUCOSE 2021-09-14 Corrine Osuna 17:17:00 Hospital IR TUNNELED DIALYSIS CATHETER 2021-09-14 Michoacano Owens thodist REPLACEMENT/EXCHANGE 13:59:03 [facility] HEMODIALYSIS 2021-09-14 Marycarmen Matson 12:42:40 [facility] POC GLUCOSE 2021-09-14 Corrine Osuna 11:19:00 [facility] BASIC METABOLIC PANEL 2021-09-14 Marycarmen Matson 09:34:00 [facility] ESTIMATED GFR 2021-09-14 Marycarmen Matson 09:34:00 [facility] ANTI-SPIKE IGG ANTIBODY 2021-09-14 Michoacano Owens TITER 03:25:00 [facility] TYPE AND SCREEN 2021-09-14 [place]ano Owens 03:25:00 [facility] 2021-09-14 Michoacano Owens odist SURVEILLANCE 03:25:00 [facility] POC GLUCOSE 2021-09-14 Corrine Osuna 01:33:00 Hospital POC GLUCOSE 2021-09-13 Corrine Osuna 23:43:00 Hospital SURGICAL PATHOLOGY REQUEST 2021-09-13 Corrine Osuna dist 20:11:00 Hospital ESOPHAGOGASTRODUODENOSCOPY (EGD) 2021-09-13 Marycarmen Lopez 19:58:[address] [facility] POC GLUCOSE 2021-09-13 Corrine Osuna 17:23:00 Hospital POC GLUCOSE 2021-09-13 Corrine Osuna 11:26:00 Hospital BASIC METABOLIC PANEL 2021-09-13 Marycarmen Matson 10:25:00 [facility] CBC WITH PLATELET AND DIFFERENTIAL 2021-09-13 Avery-Whit Dozier Amish 10:25:00 Hospital PARTIAL THROMBOPLASTIN TIME (PTT) 2021-09-13 Avery-Corrine Dozier Amish 10:25:00 Hospital ESTIMATED GFR 2021-09-13 Dano Amish 10:25:00 [facility] PROTHROMBIN TIME WITH INR 2021-09-13 Avery-Corrine Dozier Method ist 10:25:00 Hospital POC GLUCOSE 2021-09-13 Al-Lahiq, Corrine Amish 00:48:00 Hospital ECG 12-LEAD 2021-09-12 Marycarmen Lopez 23:22:[address] [facility] POC GLUCOSE 2021-09-12 Al-Lahiq, Corrine Amish 22:53:00 Hospital POC GLUCOSE 2021-09-12 Al-Lahiq, Corrine Amish 21:49:00 Hospital POC GLUCOSE 2021-09-12 Al-Lahiq, Corrine Amish 16:57:00 Hospital POC GLUCOSE 2021-09-12 Al-Lahiq, Corrine Amish 11:26:00 Hospital POC GLUCOSE 2021-09-12 Al-Lahiq, Corrine Amish 11:01:00 Hospital BASIC METABOLIC PANEL 2021-09-12 Marycarmen Matson 09:15:00 [facility] ESTIMATED GFR 2021-09-12 Marycarmen Matson 09:15:00 [facility] HEMODIALYSIS 2021-09-12 Dano Amish 02:06:24 [facility] POC GLUCOSE 2021-09-12 Al-LahiqCorrine Amish 01:05:00 Hospital POC GLUCOSE 2021-09-11 Al-Lahiq, Corrine Amish 21:53:00 Hospital POC GLUCOSE 2021-09-11 Al-Lahiq, Corrine Amish 16:41:00 Hospital HEMODIALYSIS 2021-09-11 Marycarmen Matson 15:53:24 [facility] POC GLUCOSE 2021-09-11 AlCorrine Davis 11:14:00 [place] [address] ANTI-SPIKE IGG ANTIBODY 2021-09-11 Whit Osuna Amish TITER 09:40:00 Hospital BASIC METABOLIC PANEL 2021-09-11 Marycarmen Matson 09:40:00 [facility] HEMOGLOBIN A1C 2021-09-11 Corrine Osuna 09:40:00 [place] [address] SEROLOGY PATIENT 2021-09-11 Corrine Osuna Meth odist SURVEILLANCE 09:40:00 Hospital CBC WITH PLATELET AND DIFFERENTIAL 2021-09-11 Whit Osuna Amish 09:40:00 Hospital ESTIMATED GFR 2021-09-11 Marycarmen Matson 09:40:00 [facility] POC GLUCOSE 2021-09-11 Avery-Corrine Dozier 00:39:00 Hospital POC GLUCOSE 2021-09-10 Avery-Corrine Dozier 21:14:00 Hospital CORTISOL LEVEL, AM 2021-09-10 Corrine Osuna 16:58:00 Hospital POC GLUCOSE 2021-09-10 Avery-Corrine Dozier 15:59:00 Hospital POC GLUCOSE 2021-09-10 Avery-Corrine Dozier 11:26:00 [facility] BASIC METABOLIC PANEL 2021-09-10 Marycarmen Matson 09:55:00 [facility] ESTIMATED GFR 2021-09-10 Marycarmen Matson 09:55:00 [facility] POC GLUCOSE 2021-09-10 Avery-Corrine Dozier 00:18:00 Hospital POC GLUCOSE 2021-09-09 Al-Corrine Dozier 21:28:00 Hospital POC GLUCOSE 2021-09-09 Avery-Corrine Dozier 16:28:[address] HEAD WO CONTRAST 2021-09-09 Corrine Osuna 14:48:37 Hospital HEMODIALYSIS 2021-09-09 Marycarmen Matson 14:08:47 [facility] POC GLUCOSE 2021-09-09 Corrine Osuna 11:30:00 Hospital BASIC METABOLIC PANEL 2021-09-09 Marycarmen Matson 10:45:00 [facility] ESTIMATED GFR 2021-09-09 Marycarmen Matson 10:45:00 [facility] POC GLUCOSE 2021-09-09 Al-Corrine Dozier Amish 01:10:00 Hospital POC GLUCOSE 2021-09-08 Al-Corrine Dozier Amish 21:16:00 Hospital POC GLUCOSE 2021-09-08 Al-Tasia, Corrine Amish 16:10:00 Hospital BASIC METABOLIC PANEL 2021-09-08 Haja Fraser 09:27:00 Hospital MAGNESIUM LEVEL 2021-09-08 Haja Fraser 09:27:00 Hospital ESTIMATED GFR 2021-09-08 Haja Fraser 09:27:00 Hospital GASTROINTESTINAL PATHOGENS PANEL, 2021-09-08 Kimmy Cronin PCR 02:15:00 Hospital POC GLUCOSE 2021-09-08 Avery-Corrine Dozier Amish 01:30:00 Hospital BASIC METABOLIC PANEL 2021-09-07 Avery-Corrine Dozier 18:00:00 Hospital ESTIMATED GFR 2021-09-07 Al-Corrine Dozierist 18:00:00 Hospital HEPATITIS B SURFACE ANTIGEN 2021-09-07 Andrea Matson odist 18:00:00 [facility] HEPATITIS B SURFACE AB, 2021-09-07 Stephen Matson QUANTITATIVE 18:00:00 [facility] XR CHEST 1 VW PORTABLE 2021-09-07 Corrine Osunaist 16:47:43 Hospital XR ABDOMEN 1 VW 2021-09-07 Avery-Corrine Dozier 16:47:22 Hospital HEMODIALYSIS 2021-09-07 Haja Fraserist 16:16:15 Hospital POC GLUCOSE 2021-09-07 Al-Tasia, Corrine Amish 11:07:00 Hospital TROPONIN T 2021-09-07 Trinidad Menard 03:35:00 [facility] TROPONIN T 2021-09-07 Marley Cronin 00:00:00 [...] Hospital POC GLUCOSE 2021-08-13 Marycarmen Nuñez 16:22:00 [facility] POC GLUCOSE 2021-08-13 Marycarmen Nuñez 11:17:00 [facility] XR CHEST 1 VW PORTABLE 2021-08-13 Josemanuel Vences 11:13:27 Hospital BASIC METABOLIC PANEL 2021-08-13 Josemanuel Vences 10:26:00 Hospital ESTIMATED GFR 2021-08-13 Josemanuel Vences 10:26:00 Hospital POC GLUCOSE 2021-08-13 Marycarmen Nuñez 00:38:00 [facility] HEMODIALYSIS 2021-08-13 Josemanuel Vences 00:09:24 Hospital [place] AN ELECTIVE ENDOTRACHEAL AIRWAY 2021-08-12 Leodan Rebolledo Amish 23:45:00 Hospital INSERTION, CATHETER, DIALYSIS, 2021-08-12 Josemanuel Vences ethodist PERITONEAL, LAPAROSCOPIC 23:10:00 Hospita l POC GLUCOSE 2021-08-12 Marycarmen Nuñez 20:36:00 [facility] COVID-19 QUALITATIVE RT-PCR 2021-08-12 [facility] Post hodist 17:35:00 Hospital POC GLUCOSE 2021-08-12 Kohlnhofer, Amish 15:58:00 [facility] POC GLUCOSE 2021-08-12 Kohlnhofer, Amish 11:07:00 [facility] ECG 12-LEAD 2021-08-12 Marycarmen Mcdonald 11:02:39 [facility] BASIC METABOLIC PANEL 2021-08-12 Florenceaharkjagdish, Amish 09:47:00 [facility] ESTIMATED GFR 2021-08-12 Florenceaharkjagdish Amish 09:47:00 [facility] POC GLUCOSE 2021-08-12 Kohlnhofer, Amish 00:51:00 [facility] POC GLUCOSE 2021-08-11 Kohlnhofer, Amish 20:44:00 [facility] POC GLUCOSE 2021-08-11 Kohlnhofer, Amish 16:14:00 [facility] POC GLUCOSE 2021-08-11 Kohlnhofer, Amish 11:06:00 [facility] POC GLUCOSE 2021-08-11 Kohlnhofer, Amish 00:30:00 [facility] POC GLUCOSE 2021-08-10 Kohlnhofer, Amish 20:48:00 [facility] POC GLUCOSE 2021-08-10 Kohlnhofer, Amish 11:07:00 [facility] POC GLUCOSE 2021-08-10 Kohlnhofer, Amish 00:46:00 [facility] POC GLUCOSE 2021-08-09 Kohlnhofer, Amish 21:37:00 [facility] HEMODIALYSIS 2021-08-09 FlorenceaharkMarycarmen dubon 17:13:01 [facility] POC GLUCOSE 2021-08-09 Kohlnhofer, Amish 16:55:00 [facility] POC GLUCOSE 2021-08-09 Tammy Dumont 11:19:00 [facility] BASIC METABOLIC PANEL 2021-08-09 FlorencearkMarycarmen dubon 10:52:00 [facility] ESTIMATED GFR 2021-08-09 [facility] 10:52:00 [facility] PROCALCITONIN 2021-08-09 Hyacinth Guthrie 02:51:00 [facility] POC GLUCOSE 2021-08-09 Tammy Dumont 00:26:00 [facility] POC GLUCOSE 2021-08-08 Tammy Dumont 21:18:00 [facility] POC GLUCOSE 2021-08-08 Tammy Dumont 19:34:00 [facility] POC GLUCOSE 2021-08-08 Tammy Dumont 10:58:00 [facility] DIGOXIN LEVEL 2021-08-08 Ritu Graves 10:46:00 [facility] BASIC METABOLIC PANEL 2021-08-08 Marycarmen Matson 10:46:00 [facility] ESTIMATED GFR 2021-08-08 FlorenceMarycarmen jauregui 10:46:00 [facility] POC GLUCOSE 2021-08-08 Tammy Dumont 02:06:00 [facility] POC GLUCOSE 2021-08-07 Tammy Dumont 23:09:00 [facility] HEMODIALYSIS 2021-08-07 Marycarmen Matson 20:13:07 [facility] POC GLUCOSE 2021-08-07 Tammy Dumont 15:50:00 [facility] POC GLUCOSE 2021-08-07 Tammy Dumont 11:19:00 [facility] CBC WITH PLATELET AND DIFFERENTIAL 2021-08-07 Steven Lucero 11:15:00 [facility] COMPREHENSIVE METABOLIC PANEL 2021-08-07 Rupali Lucero 11:15:00 [facility] ESTIMATED GFR 2021-08-07 Rupali Luceroist 11:15:00 [facility] POC GLUCOSE 2021-08-07 Tammy Dumont 00:58:00 [facility] HEMODIALYSIS 2021-08-06 Marycarmen Matson 21:36:17 [facility] POC GLUCOSE 2021-08-06 Mougouris, Taso Amish 21:21:00 [facility] POC GLUCOSE 2021-08-06 Mougouris, Taso Amish 15:39:00 [facility] BASIC METABOLIC PANEL 2021-08-06 Marycarmen Matson 11:19:00 [facility] ESTIMATED GFR 2021-08-06 Marycarmen Matson 11:19:00 [facility] POC GLUCOSE 2021-08-06 Tasneem Ellison 09:09:00 Hospital POC GLUCOSE 2021-08-06 Tasneem Ellison 04:44:00 Hospital HEMODIALYSIS 2021-08-06 Marycarmen Matson 02:34:43 [facility] POC GLUCOSE 2021-08-06 Vladimirugwayne, Tasneem Conroy 01:09:00 Hospital XR CHEST 1 VW PORTABLE 2021-08-05 Joanna Leiva 23:40:00 Hospital POC GLUCOSE 2021-08-05 Vladimirugwayne, Tasav Conroy 21:24:00 Hospital OR FL < 1 HOUR 2021-08-05 Joanna Leiva 21:05:00 Hospital [place] AN ELECTIVE SUPRAGLOTTIC AIRWAY 2021-08-05 Grazyna Martinez 20:19:00 [facility] INSERTION, CATHETER, CENTRAL 2021-08-05 Joanna Leiva VENOUS, TUNNELED, FOR HEMODIALYSIS 20:13:00 Hospital TYPE AND SCREEN 2021-08-05 Ti Post 20:09:00 Hospital POC GLUCOSE 2021-08-05 Tasneem Ellison 15:43:00 Hospital ECG 12-LEAD 2021-08-05 Ti Post 14:07:10 Hospital POC GLUCOSE 2021-08-05 Marycarmen Ayers 11:25:00 [facility] XR CHEST 1 VW PORTABLE 2021-08-05 Ti Post t 11:17:10 Hospital CBC WITH PLATELET AND DIFFERENTIAL 2021-08-05 Steven Lucero 10:45:00 [facility] BASIC METABOLIC PANEL 2021-08-05 Rupali Lucero 10:45:00 [facility] ESTIMATED GFR 2021-08-05 Rupali Lucero 10:45:00 [facility] POC GLUCOSE 2021-08-05 Marycarmen Ayers 00:57:00 [facility] POC GLUCOSE 2021-08-04 Marycarmen Ayers 16:51:00 [facility] XR ABDOMEN 1 VW 2021-08-04 Rupali Lucero 16:40:00 [facility] POC GLUCOSE 2021-08-04 Tammy Dumont 11:24:00 [facility] HC COMPLETE BLD COUNT W/AUTO DIFF 2021-08-04 Tammy Dumont 11:06:00 [facility] BASIC METABOLIC PANEL 2021-08-04 Marycarmen Matson 11:06:00 [facility] MAGNESIUM LEVEL 2021-08-04 Rupali Lucero 11:06:00 [facility] PHOSPHORUS LEVEL 2021-08-04 Rupali Lucero 11:06:00 [facility] ESTIMATED GFR 2021-08-04 Marycarmen Matson 11:06:00 [facility] POC GLUCOSE 2021-08-04 Tammy Dumont 00:57:00 [facility] POC GLUCOSE 2021-08-03 Tammy Dumont 21:36:00 [facility] HEPATITIS B CORE ANTIBODY TOTAL 2021-08-03 Marycarmen Matson 17:42:00 [facility] HEPATITIS B SURFACE AB, 2021-08-03 Stephen Matson t QUANTITATIVE 17:42:00 [facility] HEPATITIS C ANTIBODY 2021-08-03 Marycarmen Matson 17:42:00 [facility] HEPATITIS B SURFACE ANTIGEN 2021-08-03 Andrea Matson 17:42:00 [facility] POC GLUCOSE 2021-08-03 Tammy Dumont 16:38:00 [facility] POC GLUCOSE 2021-08-03 Tammy Dumont 11:29:00 [facility] HC COMPLETE BLD COUNT W/AUTO DIFF 2021-08-03 Ender Lucero 11:03:00 [facility] BASIC METABOLIC PANEL 2021-08-03 Rupali Lucero 11:03:00 [facility] PHOSPHORUS LEVEL 2021-08-03 Marycarmen Matson 11:03:00 [facility] PARATHYROID HORMONE 2021-08-03 José Espino 11:03:00 [facility] ESTIMATED GFR 2021-08-03 Rupali Lucero 11:03:00 [facility] POC GLUCOSE 2021-08-03 Tammy Dumont 00:22:00 [facility] CV STRESS TEST NUCLEAR CARDIO 2021-08-02 Me rudy Mcdonald 21:45:00 [facility] NM MYOCARDIAL PERFUSION REST 2021-08-02 Harry, Met caballero STRESS 1 DAY 21:45:00 [facility] POC GLUCOSE 2021-08-02 Tammy Dumont 21:08:00 [facility] POC GLUCOSE 2021-08-02 Tammy Dumont 16:34:00 [facility] POC GLUCOSE 2021-08-02 Tammy Dumont 11:19:00 [facility] HC COMPLETE BLD COUNT W/AUTO DIFF 2021-08-02 Ender Lucero 09:43:00 [facility] BASIC METABOLIC PANEL 2021-08-02 Rupali Lucero 09:43:00 [facility] MAGNESIUM LEVEL 2021-08-02 Rupali Lucero 09:43:00 [facility] ESTIMATED GFR 2021-08-02 Rupali Lucero 09:43:00 [facility] POC GLUCOSE 2021-08-02 Tammy Dumont 00:15:00 [facility] POC GLUCOSE 2021-08-01 Tammy Dumont 20:02:00 [facility] POC GLUCOSE 2021-08-01 Tammy Dumont 16:16:00 [facility] POC GLUCOSE 2021-08-01 Tammy Dumont 11:16:00 [facility] BASIC METABOLIC PANEL 2021-08-01 Theresa Ramos t 10:56:00 Hospital MAGNESIUM LEVEL 2021-08-01 Theresa Ramos 10:56:00 Hospital PHOSPHORUS LEVEL 2021-08-01 Theresa Ramos 10:56:00 Hospital HC COMPLETE BLD COUNT W/AUTO DIFF 2021-08-01 Ender Lucero 10:56:00 [facility] ESTIMATED GFR 2021-08-01 Theresa Ramos 10:56:00 Hospital ECG 12-LEAD 2021-08-01 Marycarmen Mcdonald 08:03:48 [facility] POC GLUCOSE 2021-08-01 Tammy Dumont 01:35:00 [facility] TTE COMPLETE, WO CONTRAST, W 2021-07-31 Harry, Met razaist DOPPLER ([id number]) 23:38:00 [facility] POC GLUCOSE 2021-07-31 Tammy Dumont 22:40:00 [facility] COVID-19 QUALITATIVE RT-PCR 2021-07-31 Rupali Lucero 17:14:00 [facility] POC GLUCOSE 2021-07-31 Tammy Dumont 17:07:00 [facility] POC GLUCOSE 2021-07-31 Tammy Dumont 12:13:00 [facility] B NATRIURETIC PEPTIDE 2021-07-31 José Espino 11:34:00 [facility] BASIC METABOLIC PANEL 2021-07-31 José Espino 11:34:00 [facility] HC COMPLETE BLD COUNT W/AUTO DIFF 2021-07-31 José Espino 11:34:00 [facility] TROPONIN T 2021-07-31 José Espino 11:34:00 [facility] ESTIMATED GFR 2021-07-31 José Espino 11:34:00 [facility] Plan of Care Planned Activity Planned Date [...] [facility]00 (Season Ended) [code = [facility] INFLUENZA VACCINE (Season Ended)] Future Scheduled [...] (12+)] Future Scheduled 2022-09-27 DIABETIC FOOT EXAM [facility] Test 12:29:06 [code = DIABETIC FOOT EXAM] Future Scheduled 2022-09-27 COLONOSCOPY SCREENING [facility] Test 12:29:06 [code = COLONOSCOPY SCREENING] Future Scheduled 2022-09-27 DIABETES: RETINAL EYE [facility] Test 12:29:06 EXAM [code = DIABETES: RETINAL EYE EXAM] Future Scheduled 2022-09-27 SHINGLES VACCINES (1 Met [facility] Test 12:29:06 of 2) [code = SHINGLES VACCINES (1 of 2)] Future Scheduled 2022-09-27 BREAST CANCER [facility] Test 12:29:06 SCREENING [code = BREAST CANCER SCREENING] Future Scheduled 2022-09-27 COVID-19 VACCINE (4 - [facility] Test 12:29:06 Booster for Pfizer series) [code = COVID-19 VACCINE (4 - Booster for Pfizer series)] Future Scheduled 2022-09-27 INFLUENZA VACCINE [facility] Test 12:29:06 [code = INFLUENZA VACCINE] Future Scheduled 2022-09-27 DIABETIC FOOT EXAM [facility] Test 12:29:06 [code = DIABETIC FOOT EXAM] Future Scheduled 2022-09-27 COLONOSCOPY SCREENING [facility] Test 12:29:06 [code = COLONOSCOPY SCREENING] Future Scheduled 2022-09-27 DIABETES: RETINAL EYE [facility] Test 12:29:06 EXAM [code = DIABETES: RETINAL EYE EXAM] Future Scheduled 2022-09-27 SHINGLES VACCINES (1 Met [facility] Test 12:29:06 of 2) [code = SHINGLES VACCINES (1 of 2)] Future Scheduled 2022-09-27 BREAST CANCER [facility] Test 12:29:06 SCREENING [code = BREAST CANCER SCREENING] Future Scheduled 2022-09-27 COVID-19 VACCINE (4 - Me [facility] Test 12:29:06 Booster for Pfizer series) [code = COVID-19 VACCINE (4 - Booster for Pfizer series)] Future Scheduled 2022-09-27 INFLUENZA VACCINE [facility] Test 12:29:06 [code = INFLUENZA VACCINE] Future Scheduled 2022-08-20 [facility] Test 03:10:19 [code = DIABETIC FOOT EXAM] Future Scheduled 2022-08-20 COLONOSCOPY SCREENING [facility] Test 03:10:19 [code = COLONOSCOPY SCREENING] Future Scheduled 2022-08-20 DIABETES: RETINAL EYE [facility] Test 03:10:19 EXAM [code = DIABETES: RETINAL EYE EXAM] Future Scheduled 2022-08-20 SHINGLES VACCINES (1 Met [facility] Test 03:10:19 of 2) [code = SHINGLES VACCINES (1 of 2)] Future Scheduled 2022-08-20 BREAST CANCER [facility] Test 03:10:19 SCREENING [code = BREAST CANCER SCREENING] Future Scheduled 2022-08-20 COVID-19 VACCINE (4 - Me [facility] Test 03:10:19 Booster for Pfizer series) [code = COVID-19 VACCINE (4 - Booster for Pfizer series)] Future Scheduled 2022-08-20 INFLUENZA VACCINE Method [facility] Test 03:10:19 [code = INFLUENZA VACCINE] Future Scheduled 2022-07-19 DIABETIC FOOT EXAM [facility] Test 07:26:52 [code = DIABETIC FOOT EXAM] Future Scheduled 2022-07-19 COLONOSCOPY SCREENING [facility] Test 07:26:52 [code = COLONOSCOPY SCREENING] Future Scheduled 2022-07-19 DIABETES: RETINAL EYE [facility] Test 07:26:52 EXAM [code = DIABETES: RETINAL EYE EXAM] Future Scheduled 2022-07-19 SHINGLES VACCINES (1 Met [facility] Test 07:26:52 of 2) [code = SHINGLES VACCINES (1 of 2)] Future Scheduled 2022-07-19 BREAST CANCER [facility] Test 07:26:52 SCREENING [code = BREAST CANCER SCREENING] Future Scheduled 2022-07-19 COVID-19 VACCINE (4 - [facility] Test 07:26:52 Booster for Pfizer series) [...] SCREENING] Future Scheduled 2022-05-17 DIABETIC FOOT EXAM [facility] Test 10:42:08 [code = DIABETIC FOOT EXAM] Future Scheduled 2022-05-17 COLONOSCOPY SCREENING [facility] Test 10:42:08 [code = COLONOSCOPY SCREENING] Future Scheduled 2022-05-17 DIABETES: RETINAL EYE [facility] Test 10:42:08 EXAM [code = DIABETES: RETINAL EYE EXAM] Future Scheduled 2022-05-17 SHINGLES VACCINES (1 Met [facility] Test 10:42:08 of 2) [code = SHINGLES VACCINES (1 of 2)] Future Scheduled 2022-05-17 BREAST CANCER [facility] Test 10:42:08 SCREENING [code = BREAST CANCER SCREENING] Future Scheduled 2022-05-17 COVID-19 VACCINE (4 [facility] Test 10:42:08 Booster for Pfizer series) [...] [facility] breast (procedure) [code = 247506134] Future Scheduled [address] [facility] Test 00:00:00 (combo) [code = CT Medical C enter Colonography (combo)] Future Scheduled [address] [facility] Test 00:00:00 malignant neoplasm of [facility] colon (procedure) [code = 496611226] Future Scheduled [address] [facility] Test 00:00:00 malignant neoplasm of [facility] colon (procedure) [code = 146596387] Future Scheduled 1948 DXA SCAN [code = DXA [facility] Test 00:00:00 SCAN] [facility] Future Scheduled [address] [facility] Test 00:00:00 malignant neoplasm [facility] colon (procedure) [code = 441037035] Future Scheduled [address] [facility] Test 00:00:00 malignant neoplasm of [facility] colon (procedure) [code = 890715386] Future Scheduled 1948 [facility]igmoidoscopy [facility] Future Scheduled [address] [facility] Test 00:00:00 malignant neoplasm of [facility] breast (procedure) [code = 533631155] Future Scheduled [address] [facility] Test 00:00:00 (combo) [code = CT Medical C enter Colonography (combo)] Future Scheduled [address] [facility] Test 00:00:00 malignant neoplasm [facility] colon (procedure) [code = 279365986] Future Scheduled [address] [facility] Test 00:00:00 malignant neoplasm of [facility] colon (procedure) [code = 408619726] Future Scheduled 1948 DXA SCAN [code = DXA [facility] Test 00:00:00 SCAN] [facility] Future Scheduled [address] [facility] Test 00:00:00 malignant neoplasm of [facility] colon (procedure) [code = 353891754] Future Scheduled [address] [facility] Test 00:00:00 malignant neoplasm of [facility] colon (procedure) [code = 633214539] Future Scheduled 1948 [facility]oscopy [facility] Future Scheduled [address] [facility] Test 00:00:00 malignant neoplasm of [facility] breast (procedure) [code = 292610294] Future Scheduled [address] [facility] Test 00:00:00 (combo) [code = CT Medical C enter Colonography (combo)] Future Scheduled [address] [facility] Test 00:00:00 malignant neoplasm of [facility] colon (procedure) [code = 713017233] Future Scheduled [address] [facility] Test 00:00:00 malignant neoplasm of [facility] colon (procedure) [code = 302402696] Future Scheduled 1948 DXA SCAN [code = DXA [facility] Test 00:00:00 SCAN] [facility] Future Scheduled [address] [facility] Test 00:00:00 malignant neoplasm of [facility] colon (procedure) [code = 418689393] Future Scheduled [address] [facility] Test 00:00:00 malignant neoplasm of [facility] colon (procedure) [code = 316471926] Future Scheduled 1948 [facility]igmoidoscopy [facility] [address] [facility] Test 00:00:00 malignant neoplasm of [facility] breast (procedure) [code = 223137700] Future Scheduled [address] [facility] Test 00:00:00 (combo) [code = CT Medical C enter Colonography (combo)] Future Scheduled [address] [facility] Test 00:00:00 malignant neoplasm of [facility] colon (procedure) [code = 968268241] Future Scheduled [address] [facility] Test 00:00:00 malignant neoplasm of [facility] colon (procedure) [code = 847415887] Future Scheduled 1948 DXA SCAN [code = DXA [facility] Test 00:00:00 SCAN] [facility] Future Scheduled [address] [facility] Test 00:00:00 malignant neoplasm of [facility] colon (procedure) [code = 834287867] Future Scheduled [address] [facility] Test 00:00:00 malignant neoplasm of [facility] colon (procedure) [code = 834107300] Future Scheduled 1948 [facility]oidoscopy [facility] Future Scheduled [address] [facility] Test 00:00:00 malignant neoplasm of [facility] breast (procedure) [code = 367566618] Future Scheduled [address] [facility] Test 00:00:00 (combo) [code = CT Medical C enter Colonography (combo)] Future Scheduled [address] [facility] Test 00:00:00 malignant neoplasm of [facility] colon (procedure) [code = 638501281] Future Scheduled [address] [facility] Test 00:00:00 malignant neoplasm of [facility] colon (procedure) [code = 157651961] Future Scheduled 1948 DXA SCAN [code = DXA [facility] Test 00:00:00 SCAN] [facility] Future Scheduled [address] [facility] Test 00:00:00 malignant neoplasm of [facility] colon (procedure) [code = 462200925] Future Scheduled [address] [facility] Test 00:00:00 malignant neoplasm of [facility] colon (procedure) [code = 261367849] Future Scheduled 1948 [facility]oidoscopy [facility] 00:00:[facility]] [facility] Future Scheduled [address] [facility] Test 00:00:00 malignant neoplasm of [facility] breast (procedure) [code = 856356521] Future Scheduled [address] [facility] Test 00:00:00 (combo) [code = CT Medical C enter Colonography (combo)] Future Scheduled [address] [facility] Test 00:00:00 malignant neoplasm of [facility] colon (procedure) [code = 941505236] Future Scheduled [address] [facility] Test 00:00:00 malignant neoplasm of [facility] colon (procedure) [code = 450450384] Future Scheduled 1948 DXA SCAN [code = DXA [facility] Test 00:00:00 SCAN] [facility] Future Scheduled [address] [facility] Test 00:00:00 malignant neoplasm of [facility] colon (procedure) [code = 950238676] Future Scheduled [address] [facility] Test 00:00:00 malignant neoplasm of [facility] colon (procedure) [code = 774105695] Future Scheduled 1948 [facility]oidoscopy [facility] 00:00:[facility] Future Scheduled [address] [facility] Test 00:00:00 malignant neoplasm of [facility] breast (procedure) [code = 136600465] Future Scheduled [address] [facility] Test 00:00:00 (combo) [code = CT Medical C enter Colonography (combo)] Future Scheduled [address] [facility] Test 00:00:00 malignant neoplasm of [facility] Center colon (procedure) [code = 802105044] Future Scheduled [address] [facility] Test 00:00:00 malignant neoplasm of [facility] colon (procedure) [code = 188057285] Future Scheduled 1948 DXA SCAN [code = DXA [facility] Test 00:00:00 SCAN] [facility] Future Scheduled [address] [facility] Test 00:00:00 [facility] colon (procedure) [code = 140159736] Future Scheduled [address] [facility] Test 00:00:00 [facility] colon (procedure) [code = 512499492] Future Scheduled 1948 [facility]oidoscopy [facility]] [facility] r Encounters Start End Encounter Admission Attending Care Care Encounter Source Date/Time Date/Time Type Type Clinicians Facility Department ID 2022-06-08 Inpatient EL Alfredo, [facility] DA[facility] [id number] [facility] 09:00:00 Greg 07 [facility] 2022-01-05 Inpatient [facility] [id number] [facility] 13[facility] 2021-11-04 Outpatient [facility] [id number] [place] 14:10:46 [id number] [facility] 2021-08-11 Outpatient [facility] [id number] [place] 09:26:19 [id number] [facility] 2022-07-05 2022-07-05 Orders Doctor MACKENZIE 1.2.840.114 [id number] Univers 00:00:00 00:00:00 Only Unassigned, YARELI 350.1.13.10 ity of [place] [facility] 4.2.7.2.686 Kev as [phone] [facility] [address] 2022-04-01 2022-04-01 Orders Doctor MACKENZIE 1.2.840.114 [id number] Univers 00:00:00 00:00:00 Only Unassigned, YARELI 350.1.13.10 ity of [place] [facility] 4.2.7.2.686 Kev as [phone] [facility] [address] 2022-03-24 2022-03-24 Telephone TABITHA Barillas 1.2.944.977 [id number] Univers 00:00:00 00:00:00 [facility] 350.1.13.10 it y of [place] 4.2.7.2.686 Kev as MARISA?BLEA [phone] Me garcía LOVE 198 [facility] OFFICE [facility] 2022-03-23 2022-03-23 Telephone [facility] 1.2.242.302 [id number] Univers 00:00:00 00:00:00 Luc S HEALTH 350.1.13.10 it y of [place] 4.2.7.2.686 Kev as MARISA?BLEA [phone] Me garcía LOVE 198 [facility] OFFICE [facility] 2022-03-18 2022-03-18 Telephone [facility] 1.2.840.114 [id number] Univers 00:00:00 00:00:00 Alannah L HEALTH 350.1.13.10 it y of [place] 4.2.7.2.686 Kev as MARISA?BLEA [phone] Me garcía LOVE 198 [facility] 2022-03-16 2022-03-16 Telephone [facility] 1.2.840.114 [id number] Univers 00:00:00 00:00:00 Alannah L SPECIALTY 350.1.13.10 [place] [phone] Tn garcía [place] 198 [facility] 2022-01-07 2022-01-18 [facility] Annalee Bey [facility] [id number] 17:48:00 16:48:00 [facility]22-01-18 Hospital Ann[facility] [id number] 17:48:00 16:48:00 Encounter Re[facility] 2022-01-07 2022-01-18 Inpatient MAIDA, [facility] Surgery [id number] [facility] 17:48:00 16:48:00 ANNALEE 2022-01-07 2022-01-07 Travel [facility] [id number] [facility] 00:[facility]00 00:00:00 [facility] 2022-01-07 2022-01-07 Travel [facility] [id number] [facility] 00:[facility]:00 00:00:00 [facility] 2022-01-02 2022-01-02 Outpatient R JUD, [facility] NUT [id number] [facility] 00:00:00 00:00:[address] [facility] 2021-09-06 2021-09-16 [facility] Trinidad Menard 1.2.840.1 [id number] Methodi 14:46:00 18:55:00 Encounter Corrine Osuna 89892.1.[address] 3.430.2.7 Hospit a .3.263032 l .8 2021-09-13 2021-09-13 Anesthesia Natasha, 1.2.840.1 [id number] Methodi 14:58:00 15:19:00 Event Edwin 72135.1.[address] Alannah 3.430.2.7 Hospit a .3.764804 l .8 2021-09-13 2021-09-13 Surgery John, 1.2.840.1 [id number] [id number] Methodi 14:22:00 14:27:[address] Marthai 3.430.2.7 Hospit a .3.954169 l .8 2021-09-06 2021-09-06 Travel 1.2.840.1 1.2.382.539 1563 [id number] Methodi 00:00:00 00:00:[address] 3.430.2.7 0.2.7.3.698 spita .3.267396 084.8 l .8 2021-07-31 2021-08-13 Hospital Tammy Dumont 1.2.840.1 [id number] Methodi 04:12:00 19:46:00 Encounter Edwin Ayers 66286.1.[address] Tasneem Ellison 3.430.2.7 Hospita Annalee Nuñez .3.866257 l .8 2021-08-12 2021-08-12 Anesthesia Leodan Rebolledo 1.2.840.1 [id number] Methodi 18:09:00 19:38:[address] 3.430.2.7 Hospit a .3.400371 l .8 2021-08-12 2021-08-12 Surgery Ru, 1.2.840.1 [id number] Methodi 17:35:00 18:50:[address] 3.430.2.7 Hospit a .3.833931 l .8 2021-08-05 2021-08-05 Anesthesia RamonAndre 1.2.840.1 [id number] Methodi 15:12:00 16:16:00 Event Grazyna Martinez Izzy 33378.1.[address] 3.430.2.7 Hospit a .3.526779 l .8 2021-08-05 2021-08-05 Surgery Abbie, 1.2.840.1 [id number] Methodi 15:20:00 16:05:[address] 3.430.2.7 Hospit a .3.134412 l .8 2021-08-02 2021-08-02 Documentat Provider, 1.2.840.1 [id number] Methodi 00:00:00 00:00:00 ion Unknown 20105.1.[address] 3.430.2.7 Hospit a .3.435504 l .8 2021-07-14 2021-07-14 Transcribe Vanda 1.2.840.1 [id number] Methodi 00:00:00 00:00:00 Orders , Zulema 22636.1.[address] 3.430.2.7 Hospit a .3.079875 l .8 2021-06-10 2021-06-10 Clinical 1.2.840.1 [id number] Methodi 15:45:00 15:58:[address] 3.430.2.7 Hospit a .3.563434 l .8 2021-06-10 2021-06-10 Travel 1.2.840.1 1.2.402.397 1456 [id number] Methodi 00:00:00 00:00:00 55759.1.1 350.1.13.43 572 3.430.2.7 0.2.7.3.698 spita .3.139409 084.8 l .8 2021-06-09 2021-06-09 Outpatient Daniel_T VFP VFP [id number] 02-08 [facility] 11:40:00 11:40:00 [id number] Family Practic e 2021-06-01 2021-06-04 Outpatient AL-LAHIQ, [facility] [id number] [facility] 00:00:00 00:00:[address] MAHLaly [address] 2020-08-05 2020-08-05 [facility]patient [facility] [id number] [facility] 00:00:00 00:00:00 , ZULEMA [address] 2020-07-09 2020-07-09 Outpatient [facility] [id number] [facility] 00:00:00 00:00:[address] 2020-06-18 2020-06-18 Outpatient [facility] [id number] [facility] 00:00:00 00:00:[address] 2020-04-05 2020-04-06 Outpatient AL-LAHIQ, [place] [address] [id number] [facility] 00:00:00 00:00:00 MAHA [address] 2020-03-22 2020-03-25 Inpatient AL-LAHIQ, [facility] [id number] 2074 [facility] 00:00:00 00:00:00 MAHA [address] 2020-02-27 2020-02-27 Outpatient HIGUERA, [facility] [id number] [facility] 00:00:00 00:00:00 DAVID [address] 2020-02-17 2020-02-18 Outpatient AL-LAHIQ, [place] [address] 72407 88468 [facility] 00:00:00 00:00:00 MAHA [address] 2020-01-17 2020-01-18 Emergency JOSE A, [place] [address] [id number] [facility] 00:00:00 00:00:00 SHAKEEL [address] 2019-10-23 2019-10-26 Inpatient ALEXANDRO, [facility] [id number] [facility] 00:00:00 00:00:00 MAHA [address] 2019-08-05 2019-08-05 Outpatient VANDA [facility] [id number] [facility] 00:00:00 00:00:00 , ZULEMA [address] 2019-07-10 2019-07-12 Inpatient ALEXANDRO, [facility] [id number] [facility] 00:00:00 00:00:00 MAHA [address] 2019-03-27 2019-03-30 Outpatient BOAZ, [facility] [id number] [facility] 00:00:00 00:00:00 SARAI [address] Results Test Description Test Time Test Comments Results Result Comments Source POC-Glucose meter 2022-01-18 12:22:13 Test Item Value Reference Range Interpretation Comme nts POC-Glucose Meter (test code = 102 mg/dL 70-110 : TESTED AT [facility] [address] [facility] 1538) [place] [address]: Requirements Analyst/Techni faviola ID = [id number] for Yelling, Yoland a Lab Interpretation (test code = Normal 97238-8) [id number] 12:22:13 Test Item Value Reference Range Interpretation Comments POC-Glucose Meter (test 102 mg/dL 70-110 : TE STED AT [facility] code = 1538) [address] [place] [address]: Requirements Analyst/Techni faviola ID = [id number] for Yelling, Yoland a Lab Interpretation (test Normal code = 68574-1) [facility] [id number] 12:22:13 Test Item Value Reference Range Interpretation Comments POC-Glucose Meter (test 102 mg/dL 70-110 : TE STED AT [facility] code = 1538) [address] [place] [address]: Requirements Analyst/Techni faviola ID = [id number] for Yelling, Yoland a Lab Interpretation (test Normal code = 89517-9) [facility]-Glucose [id number] 12:22:13 Test Item Value Reference Range Interpretation Comments POC-Glucose Meter (test 102 mg/dL 70-110 : [facility] code = 1538) [address] [place], [place] [address]: Requirements Analyst/Techni faviola ID = [id number] for Yelling, Yoland a Lab Interpretation (test Normal code = 27546-5) [facility]-Glucose [id number] 12:22:13 Test Item Value Reference Range Interpretation Comments POC-Glucose Meter (test 102 mg/dL 70-110 : [facility] code = 1538) [address] [place], [place] [address]: Requirements Analyst/Techni faviola ID = [id number] for Yelling, Yoland a Lab Interpretation (test Normal code = 45750-2) [facility]-Glucose [id number] 12:22:13 Test Item Value Reference Range Interpretation Comments POC-Glucose Meter (test 102 mg/dL 70-110 : TE STED AT [facility] code = 1538) [address] [place], [place] [address]: Requirements Analyst/Techni faviola ID = [id number] for Yelling, Yoland a Lab Interpretation (test Normal code = 89773-5) [facility]-Glucose [id number] 12:22:13 Test Item Value Reference Range Interpretation Comments POC-Glucose Meter (test 102 mg/dL 70-110 : [facility] code = 1538) [address] [place], [place] [address]: Requirements Analyst/Techni faviola ID = [id number] for Yelling, Yoland a Lab Interpretation (test Normal code = 23985-2) [facility]-GLUCOSE [id number] 12:22:13 Test Item Value Reference Range Interpretation Comments POC-GLUCOSE METER 102 mg/dL 70-110 : [facility] T [facility] (BEAKER) (test code [facility], = 1538) [place] [address]158: Requirements Analyst/Techni faviola ID = [id number] for Reynolds ing, Zuri BASIC METABOLIC [id number] 06:40:34 Test Item Value Reference Range Interpretation [...] not appl icable for dialysis patien ts Requirements Analyst ID - [id number] ID - YYOPMFMWZ004Eycavmdv ID - FLWFTKDXC911Kczxbqtb ID - ZVQIFYMRN902Vmfaclrp ID - CMKMFXIZO768Gpvxmqmg ID - SQOIMJTCR188Atywmxoc ID - IPUHEHKYC300Vwxwwydp ID - KIPXKRUZH756Rmubqjoy ID - GJEZNJDAE990Bdvaetgo ID - LKIEIPLWI625Zdeamfvd ID - VHRGOAKJG332Rhfwgust ID - BSQRPNSYT602Gxjopwho ID - [id number]-XWVQUWZ [id number] 19:58:07 Test Item Value Reference Range Interpretation Comments POC-GLUCOSE METER 126 mg/dL 70-110 H : TESTED A T [facility] [address]17 (BEAKER) (test code [address], = 1538) [facility] 77 478: Requirements Analyst/Techni faviola ID = [id number] for Will Ina lewis POCT-GLUCOSE [id number] 17:18:36 Test Item Value Reference Range Interpretation Comments POC-GLUCOSE METER 128 mg/dL 70-110 H : Notified RN/MD: [facility] (test code AT [facility] [address] = 1538) [place] [address]: Requirements Analyst/Techni faviola ID = [id number] for Maninder figueroa, Chenchoben POCT-GLUCOSE [id number] 12:27:16 Test Item Value Reference Range Interpretation Comments POC-GLUCOSE METER 141 mg/dL 70-110 H : TESTED A T [facility] 1317 ([facility] (test code [facility], = 1538) [place] [address]: Requirements Analyst/Techni faviola ID = [id number] for Maninder figueroa, Chenchoben POCT-GLUCOSE [id number] 08:42:44 Test Item Value Reference Range Interpretation Comments POC-GLUCOSE METER 152 mg/dL 70-110 H : Notified RN/MD: [facility] (test code AT [facility] [address] = 1538) [place] [address]: Requirements Analyst/Techni faviola ID = [id number] for Chencho Alanizben BASIC METABOLIC [id number] 05:53:56 Test Item Value Reference Range Interpretation [...] not appl icable for dialysis patien ts Requirements Analyst ID - [id number] ID - HGHVWLZMX651Ysmzqiqa ID - NIPPYNUHE598Zmhpqfxm ID - YBHKFNUZD425Cfbmyknr ID - [id number] ID - EZLUIEPUW447Zsfirjce ID - TGSHZTGRY792Lecnkopu ID - ZPOAIYYZE085Ortoammj ID - SEDPEFUAU092Tjxyfumo ID - SNBTYYQVG958Wwgmdvlf ID - KIYPNSPLM238Ywbcbuny ID - OHSPGHDLZ688Qtdwkrnb ID - EMGPGUQGR350JLTH-JDMQZRT [id number] 20:28:58 Test Item Value Reference Range Interpretation Comments POC-GLUCOSE METER 184 mg/dL 70-110 H : TESTED A T [facility] [address] (BEAKER) (test code [address], = 1538) [place] [address]: Requirements Analyst/Techni faviola ID = [id number] for Ina Agrawal POCT-GLUCOSE [id number] 15:57:54 Test Item Value Reference Range Interpretation Comments POC-GLUCOSE METER 187 mg/dL 70-110 H : TESTED A T [facility] (BEAKER) (test code [address], = 1538) [place] [address]: Requirements Analyst/Techni faviola ID = [id number] for Ej vergara, Aileen POCT-GLUCOSE [id number] 11:57:54 Test Item Value Reference Range Interpretation Comments POC-GLUCOSE METER 163 mg/dL 70-110 H : TESTED A T [facility] (BEAKER) (test code [address], = 1538) [place] [address]: Requirements Analyst/Techni faviola ID = [id number] for Ej vergara, Aileen POCT-GLUCOSE [id number] 07:59:00 Test Item Value Reference Range Interpretation Comments POC-GLUCOSE METER 129 mg/dL 70-110 H : TESTED A T [facility] (BEAKER) (test code [address], = 1538) [place] [address]: Requirements Analyst/Techni faviola ID = [id number] for Aileen Loja POCT-GLUCOSE [id number] 20:24:24 Test Item Value Reference Range Interpretation Comments POC-GLUCOSE METER 185 mg/dL 70-110 H : TESTED A T [facility] (BEAKER) (test code [address], = 1538) [place] [address]: Requirements Analyst/Techni faviola ID = [id number] for Agustin Patel POCT-GLUCOSE [id number] 18:05:34 Test Item Value Reference Range Interpretation Comments POC-GLUCOSE METER 126 mg/dL 70-110 H : TESTED A T [facility] [address] (BEAKER) (test code [address], = 1538) [place] [address]: Requirements Analyst/Techni faviola ID = [id number] for Consuelo Leija POCT-GLUCOSE [id number] 12:43:19 Test Item Value Reference Range Interpretation Comments POC-GLUCOSE METER 154 mg/dL 70-110 H : TESTED A T [facility] [address] (BEAKER) (test code [address], = 1538) [place] [address]: Requirements Analyst/Techni faviola ID = [id number] for Consuelo Leija POCT-GLUCOSE [id number] 07:44:17 Test Item Value Reference Range Interpretation Comments POC-GLUCOSE METER 142 mg/dL 70-110 H : TESTED A T [facility] [address] (BEAKER) (test code [address], = 1538) [place] [address]: Requirements Analyst/Techni faviola ID = [id number] for Consuelo Leija BASIC METABOLIC [id number] 05:55:22 Test Item Value Reference Range Interpretation [...] not appl icable for dialysis patien ts Requirements Analyst ID - LITOOperator ID - LITOOperator ID - LITOOperator ID - LITOOperator ID - LITOOperator ID - LITOOperator ID - LITOOperator ID - LITOOperator ID - LITOOperator ID - LITOOperator ID - LITOOperator ID - LITOOperator ID - MARTÍN POCT-GLUCOSE [id number] 20:53:58 Test Item Value Reference Range Interpretation Comments POC-GLUCOSE METER 194 mg/dL 70-110 H : TESTED A T [facility] [address] (BEAKER) (test code [address], = 1538) [place] [address]: Requirements Analyst/Techni faviola ID = [id number] for Aileen Loja POCT-GLUCOSE [id number] 15:49:19 Test Item Value Reference Range Interpretation Comments POC-GLUCOSE METER 171 mg/dL 70-110 H : TESTED A T [facility] [address] (BEAKER) (test code [address], = 1538) [place] [address] 478: Requirements Analyst/Techni faviola ID = [id number] for Aileen Loja SARS-CoV2/RT-PCR (Asymptomatic ONLY)2022-01-14 15:42:35 Test Item Value Reference Interpretation Comments Range SARS-COV2/RT-PCR Negative Negative The SARS-Co V-2 (test code = target nucleic 59094-0) acids are not detected in thi s [...] revoked sooner. Fact Sheet for Healthcare Providers: https://www.[employer]/Documents/Xp ert%20Xpress%20SAR S%20CoV-2/Fact%20S heets/302-3802%20S ARS-COV-2%20HEALTH CARE%20PROVIDERS%2 0FACT%20SHEET.pdf Fact Sheet for Healthcare Patients: https://www.[employer]/Documents/Xp ert%20Xpress%20SAR S%20CoV-2/Fact%20S heets/302-3801%20S ARS-COV-2%20PATIEN T%20FACT%20SHEET.p df Lab Interpretation Normal (test code = 66906-7) [facility]14 15:42:35 Test Item Value Reference Interpretation Comments Range SARS-COV2/RT-PCR Negative Negative The SARS-Co V-2 (test code = target nucleic 76979-5) acids are not detected in thi s [...] revoked sooner. Fact Sheet for Healthcare Providers: https://www.[employer]/Documents/Xp ert%20Xpress%20SAR S%20CoV-2/Fact%20S heets/302-3802%20S ARS-COV-2%20HEALTH CARE%20PROVIDERS%2 0FACT%20SHEET.pdf Fact Sheet for Healthcare Patients: https://www.[employer]/Documents/Xp ert%20Xpress%20SAR S%20CoV-2/Fact%20S heets/302-3801%20S ARS-COV-2%20PATIEN T%20FACT%20SHEET.p df Lab Interpretation Normal (test code = 04744-3) [facility]2022-01-14 15:42:35 Test Item Value Reference Interpretation Comments Range SARS-COV2/RT-PCR Negative Negative The SARS-Co V-2 (test code = target nucleic 30696-9) acids are not detected in thi s [...] revoked sooner. Fact Sheet for Healthcare Providers: https://www.[employer]/Documents/Xp ert%20Xpress%20SAR S%20CoV-2/Fact%20S heets/302-3802%20S ARS-COV-2%20HEALTH CARE%20PROVIDERS%2 0FACT%20SHEET.pdf Fact Sheet for Healthcare Patients: https://www.[employer]/Documents/Xp ert%20Xpress%20SAR S%20CoV-2/Fact%20S heets/302-3801%20S ARS-COV-2%20PATIEN T%20FACT%20SHEET.p df Lab Interpretation Normal (test code = 22831-0) [facility]2022-01-14 15:42:35 Test Item Value Reference Interpretation Comments Range SARS-COV2/RT-PCR Negative Negative The SARS-Co V-2 (test code = target nucleic 10386-7) acids are not detected in thi s [...] revoked sooner. Fact Sheet for Healthcare Providers: https://www.[employer]/Documents/Xp ert%20Xpress%20SAR S%20CoV-2/Fact%20S heets/302-3802%20S ARS-COV-2%20HEALTH CARE%20PROVIDERS%2 0FACT%20SHEET.pdf Fact Sheet for Healthcare Patients: https://www.[employer]/Documents/Xp ert%20Xpress%20SAR S%20CoV-2/Fact%20S heets/302-3801%20S ARS-COV-2%20PATIEN T%20FACT%20SHEET.p df Lab Interpretation Normal (test code = 39921-4) [facility]2022-01-14 15:42:35 Test Item Value Reference Interpretation Comments Range SARS-COV2/RT-PCR Negative Negative The SARS-Co V-2 (test code = target nucleic 26457-4) acids are not detected in thi s [...] om SARS-CoV-2 in a nasopharyngeal swab specimen [facility] from individual s suspected of COVID-19 by [...] revoked sooner. Fact Sheet for Healthcare Providers: https://www.[employer]/Documents/Xp ert%20Xpress%20SAR S%20CoV-2/Fact%20S heets/302-3802%20S ARS-COV-2%20HEALTH CARE%20PROVIDERS%2 0FACT%20SHEET.pdf Fact Sheet for Healthcare Patients: https://www.[employer]/Documents/Xp ert%20Xpress%20SAR S%20CoV-2/Fact%20S heets/302-3801%20S ARS-COV-2%20PATIEN T%20FACT%20SHEET.p df Lab Interpretation Normal (test code = 81372-9) [facility]2022-01-14 15:42:35 Test Item Value Reference Interpretation Comments Range SARS-COV2/RT-PCR Negative Negative The SARS-Co V-2 (test code = target nucleic 63797-3) acids are not detected in thi s [...] revoked sooner. Fact Sheet for Healthcare Providers: https://www.[employer]/Documents/Xp ert%20Xpress%20SAR S%20CoV-2/Fact%20S heets/302-3802%20S ARS-COV-2%20HEALTH CARE%20PROVIDERS%2 0FACT%20SHEET.pdf Fact Sheet for Healthcare Patients: https://www.[employer]/Documents/Xp ert%20Xpress%20SAR S%20CoV-2/Fact%20S heets/302-3801%20S ARS-COV-2%20PATIEN T%20FACT%20SHEET.p df Lab Interpretation Normal (test code = 51881-3) [facility]2022-01-14 15:42:35 Test Item Value Reference Interpretation Comments Range SARS-COV2/RT-PCR Negative Negative The SARS-Co V-2 (test code = target nucleic 07239-0) acids are not detected in thi s [...] (test code = This test has been VALERIAON) authorized by FDA under an EUA for [...] revoked sooner. Fact Sheet for Healthcare Providers: https://www.[employer]/Documents/Xp ert%20Xpress%20SAR S%20CoV-2/Fact%20S heets/302-3802%20S ARS-COV-2%20HEALTH CARE%20PROVIDERS%2 0FACT%20SHEET.pdf Fact Sheet for Healthcare Patients: https://www.[employer]/Documents/Xp ert%20Xpress%20SAR S%20CoV-2/Fact%20S heets/302-3801%20S ARS-COV-2%20PATIEN T%20FACT%20SHEET.p df Lab Interpretation Normal (test code = 20683-9) [facility])2022-01-14 15:42:35 Test Item Value Reference Range Interpretation Comments SARS-COV2/RT-PCR Negative Negative The SARS-Co V-2 target (test code = nucleic acids a re not 3609531) detected in thi s specimen. Negative result [...] revoked sooner. Fact Sheet for Healthcare Providers: https://www.[employer]/Documents/Xpert%20Xpress%20SARS%20CoV-2/Fact%20Sheets/302-3802%02JLHD-MMQ-0%2 0HEALTHCARE%20PROVIDERS%20FACT%20SHEET.pdf Fact Sheet for Healthcare Patients: https://www.[employer]/Documents/Xpert%20X press%20SARS%20CoV-2/Fact%20Sheets/302-3801%12WFQA-SEC-7%20PATIENT%20FACT%20SHEE T.pdfRAD, CHEST, 1 VIEW, NON [id number] 15:02:00Reason for exam:- >SOBShould this be performed at the bedside?->Yes [facility] 1950 Sex: FFINAL [...] Linkeport Verified Date/Time: 01/14/2022 15:02:16 Reading Location: [facility] Radiology Reading Room POCT-GLUCOSE [id number] 12:14:41 Test Item Value Reference Range Interpretation Comments POC-GLUCOSE METER 134 mg/dL 70-110 H : TESTED A T [facility] 1317 (BEAKER) (test code [address], = 1538) [facility] [address]: Requirements Analyst/Techni faviola ID = [id number] for Saeidamber griggssulaimanAileen, CENTRAL VENOUS CATH PLCAR (JUG/FEM) > 5 Y.O. WITH [id number] 11:25:00Reason for exam:->Non tunneled central line placement [facility] 1950 Sex: FFINAL [...] MDReport Verified Date/Time: 01/14/2022 11:25:42 Reading Location: [facility] Radiology Reading Room POCT-GLUCOSE [id number] 08:34:59 Test Item Value Reference Range Interpretation Comments POC-GLUCOSE METER 147 mg/dL 70-110 H : TESTED A T [facility] 1317 (BEAKER) (test code [address], = 1538) [facility] [address]: Requirements Analyst/Techni faviola ID = [id number] for Aileen Loja BASIC METABOLIC [id number] 06:37:03 Test Item Value Reference Range Interpretation [...] not appl icable for dialysis patien ts Requirements Analyst ID - LITOOperator ID - LITOOperator ID [...] 0-0 (BEAKER) (test code = 413) POCT-GLUCOSE [id number] 19:50:36 Test Item Value Reference Range Interpretation Comments POC-GLUCOSE METER 199 mg/dL 70-110 H : TESTED A T [facility] [address] (BEAKER) (test code [address], = 1538) [place] [address]: Requirements Analyst/Techni faviola ID = [id number] for Ina Agrawal POCT-GLUCOSE [id number] 16:52:12 Test Item Value Reference Range Interpretation Comments POC-GLUCOSE METER 150 mg/dL 70-110 H : TESTED A T [facility] [address] (BEAKER) (test code [address], = 1538) [place] [address]: Requirements Analyst/Techni faviola ID = [id number] for Aileen Loja POCT-GLUCOSE [id number] 14:05:10 Test Item Value Reference Range Interpretation Comments POC-GLUCOSE METER 122 mg/dL 70-110 H : TESTED A T [facility] [address] (BEAKER) (test code [address], = 1538) [place] [address]: Requirements Analyst/Techni faviola ID = [id number] for Nancy Douglass Blood gas, [id number] 09:06:33 Test Item Value Reference Range Interpretation Comments pH, Arterial (test code 7.45 7.35-7.45 = 2744-1) pCO2, Arterial (test 40 See_Comment [Autom ated message] code = 2019-8) The system [facility] generated this result transmit kenneth reference range : 35 - 45 mm Hg. The reference range was not used to interpret this result as normal/abnormal . pO2, Arterial (test 79 See_Comment L [Automa kenneth message] code = 2703-7) The system [employer] generated this result transmit kenneth reference range [...] 21 Lab Interpretation Abnormal (test code = 33682-1) [facility] [id number] 09:06:33 Test Item Value Reference Range Interpretation Comments pH, Arterial (test code 7.45 7.35-7.45 = 2744-1) pCO2, Arterial (test 40 See_Comment [Autom ated message] code = 2019-) The system [employer] generated this result transmit kenneth reference range : 35 - 45 mm Hg. The reference range was not used to interpret this result as normal/abnormal . pO2, Arterial (test 79 See_Comment L [Automa kenneth message] code = 2703-7) The system [employer] generated this result transmit kenneth reference range [...] 21 Lab Interpretation Abnormal (test code = 03039-7) [facility] [id number] 09:06:33 Test Item Value Reference Range Interpretation Comments pH, Arterial (test code 7.45 7.35-7.45 = 2744-1) pCO2, Arterial (test 40 See_Comment [Autom ated message] code = 2019) The system [employer] generated this result transmit kenneth reference range : 35 - 45 mm Hg. The reference range was not used to interpret this result as normal/abnormal . pO2, Arterial (test 79 See_Comment L [Automa kenneth message] code = 2703-7) The system [employer] generated this result transmit kenneth reference range [...] 21 Lab Interpretation Abnormal (test code = 58373-3) [facility] [id number] 09:06:33 Test Item Value Reference Range Interpretation Comments pH, Arterial (test code 7.45 7.35-7.45 = 2744-1) pCO2, Arterial (test 40 See_Comment [Autom ated message] code = 2019-8) The system [employer] generated this result transmit kenneth reference range : 35 - 45 mm Hg. The reference range was not used to interpret this result as normal/abnormal . pO2, Arterial (test 79 See_Comment L [Automa kenneth message] code = 2703-7) The system [employer] generated this result transmit kenneth reference range [...] 21 Lab Interpretation Abnormal (test code = 56172-4) [facility] gas, [id number] 09:06:33 Test Item Value Reference Range Interpretation Comments pH, Arterial (test code 7.45 7.35-7.45 = 2744-1) pCO2, Arterial (test 40 See_Comment [Autom ated message] code = 2018-) The system [employer] generated this result transmit kenneth reference range : 35 - 45 mm Hg. The reference range was not used to interpret this result as normal/abnormal . pO2, Arterial (test 79 See_Comment L [Automa kenneth message] code = 2703-7) The system [employer] generated this result transmit kenneth reference range [...] 21 Lab Interpretation Abnormal (test code = 73915-0) [facility] [id number] 09:06:33 Test Item Value Reference Range Interpretation Comments pH, Arterial (test code 7.45 7.35-7.45 = 2744-1) pCO2, Arterial (test 40 See_Comment [Autom ated message] code = 2018-) The system [employer] generated this result transmit kenneth reference range : 35 - 45 mm Hg. The reference range was not used to interpret this result as normal/abnormal . pO2, Arterial (test 79 See_Comment L [Automa kenneth message] code = 2703-7) The system [employer] generated this result transmit kenneth reference range : 80 - 90 mm Hg. The reference range was not used to interpret this result as normal/abnormal . O2 Sat, Arterial (test 96.2 % 96.0-97.0 code = 2708-6) HCO3, Arterial (test 27 mmol/L -29 code = 1960-4) Base Excess, Arterial 3.1 mmol/L -2.0-3.0 H (test code = 1925-7) Patient Temperature 37.0 (test code = 8310-5) FIO2 (test code = 1819) 21 Lab Interpretation Abnormal (test code = 79655-7) [facility] gas, [id number] 09:06:33 Test Item Value Reference Range Interpretation Comments pH, Arterial (test code 7.45 7.35-7.45 = 2744-1) pCO2, Arterial (test 40 See_Comment [Autom ated message] code = 2018-) The system [employer] generated this result transmit kenneth reference range : 35 - 45 mm Hg. The reference range was not used to interpret this result as normal/abnormal . pO2, Arterial (test 79 See_Comment L [Automa kenneth message] code = 2703-7) The system [employer] generated this result transmit kenneth reference range [...] 21 Lab Interpretation Abnormal (test code = 17089-4) [facility], [id number] 09:06:33 Test Item Value Reference Range Interpretation Comments PH ARTERIAL (BEAKER) (test code = 7.45 7.35-7.45 383) PCO2 ARTERIAL (BEAKER) (test code 40 mm Hg 35-45 = 384) PO2 ARTERIAL (BEAKER) (test code = 79 mm Hg 80-90 L 385) O2 SATURATION ARTERIAL (BEAKER) 96.2 % 96.0-97.0 (test code = 386) HCO3 ARTERIAL (BEAKER) (test code 27 mmol/L -29 = 388) BASE EXCESS ARTERIAL (BEAKER) 3.1 mmol/L -2.0-3.0 H (test code = 387) PATIENT TEMPERATURE (BEAKER) (test 37.0 code = 1818) FIO2 (BEAKER) (test code = 1819) 21.0 POCT-GLUCOSE [id number] 08:36:44 Test Item Value Reference Range Interpretation Comments POC-GLUCOSE METER 132 mg/dL 70-110 H : TESTED A T [facility] (BEAKER) (test code [address], = 1538) [facility] 77 [address]: Requirements Analyst/Techni faviola ID = [id number] for Ej griggssulaimanAileen TSH/FREE T4 IF [id number] 08:14:31 Test Item Value Reference Range Interpretation Comments THYROID STIMULATING HORMONE 1.790 uIU/mL 0.350-5.500 (BEAKER) (test code = 772) Requirements Analyst ID - DSENSONCOMPREHENSIVE METABOLIC [id number] 08:04:08 Test Item Value Reference Range Interpretation [...] not appl icable for dialysis patien ts Requirements Analyst ID - DSENSONOperator ID - DSENSONOperator ID - DSENSONOperator ID - DSENSONOperator ID - DSENSONOperator ID - DSENSONOperator ID - DSENSONOperator ID - DSENSONOperator ID - DSENSONOperator ID - DSENSONOperator ID - DSENSONOperator ID - DSENSONOperator ID - DSENSONOperator ID - DSENSONOperatorID - DSENSONOperator ID - DSENSONOperator ID - DSENSONOperator ID - DSENSONOperator ID - DSENSONTROPONIN [id number] 08:03:10 Test Item Value Reference Range Interpretation [...] failure, acidosis, acute neurological disease, and persistent tachyarrhythmia.Requirements Analyst ID - DSENSONCT, BRAIN, WITHOUT [id number] 07:49:00 [facility] : 1950 Sex: FFINAL REPORT CT, BRAIN, [...] is recommended for further characterization. Signed: Suzi Askewort Verified Date/Time: 01/13/2022 07:49:20 CBC W/PLT COUNT & AUTO [id number] 07:39:37 Test Item Value Reference Range Interpretation [...] PERCENT (BEAKER) (test code = 2801) POCT-GLUCOSE [id number] 07:15:45 Test Item Value Reference Range Interpretation Comments POC-GLUCOSE METER 127 mg/dL 70-110 H : TESTED A T [facility] (BEAKER) (test code [address], = 1538) [place] [address]: Requirements Analyst/Techni faviola ID = [id number] for Aileen Loja POCT-GLUCOSE [id number] 06:32:48 Test Item Value Reference Range Interpretation Comments POC-GLUCOSE METER 133 mg/dL 70-110 H : TESTED A T [facility] (BEAKER) (test code [facility] = 1538) [place] [address]: Requirements Analyst/Techni faviola ID = [id number] for Mekhi bi, [place] POCT-GLUCOSE [id number] 21:05:05 Test Item Value Reference Range Interpretation Comments POC-GLUCOSE METER 195 mg/dL 70-110 H : TESTED A T [facility] (BEAKER) (test code [address], = 1538) [place] [address]: Requirements Analyst/Techni faviola ID = [id number] for Mekhi bi, [place] POCT-GLUCOSE [id number] 19:32:35 Test Item Value Reference Range Interpretation Comments POC-GLUCOSE METER 180 mg/dL 70-110 H : TESTED A T [facility] (BEAKER) (test code [address], = 1538) [place] [address]: Requirements Analyst/Techni faviola ID = [id number] for [place] ins, Odalys POCT-GLUCOSE [id number] 19:30:16 Test Item Value Reference Range Interpretation Comments POC-GLUCOSE METER 50 mg/dL 70-110 L : TESTED A T [facility] (BEAKER) (test code = [address], 1538) [place] [address]: Requirements Analyst/Techni faviola ID = [id number] for Odalys Castaneda POCT-GLUCOSE [id number] 18:09:32 Test Item Value Reference Range Interpretation Comments POC-GLUCOSE METER 63 mg/dL 70-110 L : TESTED A T [facility] (BEAKER) (test code = [address], 1538) [facility] 77 478: Requirements Analyst/Techni faviola ID = [id number] for Robe Agrawal ANG, TUNNELED CATHETER [id number] 17:04:00Reason for exam:->dialysis catheter with poor flows on dialysis, very positional - please place tunneled dialysis catheter in a new position. [facility] 1950 Sex: FFINAL REPORT Tunneled dialysis catheter exchange, 01/12/2022. History: Renal failure, poor flow through the existing catheter. Modality: Sonography and fluoroscopy. Sedation: None. Jewel Staker: Mitzy. Licensing Registration Examiner: None. Approach: Internal jugular vein - right. [...] removed and a new 23 cm 15.5 [place] Duraflow 2 catheter was advanced through the [...] MDReport Verified Date/Time: 01/12/2022 17:04:33 Reading Location: [facility] Reading Room POCT-GLUCOSE [id number] 12:20:13 Test Item Value Reference Range Interpretation Comments POC-GLUCOSE METER 107 mg/dL 70-110 : TESTED A T [facility] (rankur) (test code [facility] [address], = 1538) [place] [address]: Requirements Analyst/Techni faviola ID = [id number] for Will iams, Robe POCT-GLUCOSE [id number] 09:01:23 Test Item Value Reference Range Interpretation Comments POC-GLUCOSE METER 118 mg/dL 70-110 H : TESTED A T [facility] (BEAKER) (test code [address], = 1538) [place] [address]: Requirements Analyst/Techni faviola ID = [id number] for Will iams, Robe CBC W/PLT COUNT & AUTO [id number] 06:58:41 Test Item Value Reference Range Interpretation Comments WHITE BLOOD CELL COUNT ([facility]) 7.5 K/ L 4.0-10.0 (test code = 775) RED BLOOD CELL COUNT ([facility]) 3.88 M/ L 4.00-5.00 L (test code [...] code = 1+ few 961) BASIC METABOLIC [id number] 06:30:57 Test Item Value Reference Range Interpretation [...] not appl icable for dialysis patien ts Requirements Analyst ID - LITOOperator ID - LITOOperator ID - LITOOperator ID - LITOOperator ID - LITOOperator ID - LITOOperator ID - LITOOperator ID - LITOOperator ID - LITOOperator ID - [id number] 06:19:11 Test Item Value Reference Range Interpretation Comments MAGNESIUM (BEAKER) (test code = 1.9 mg/dL 1.5-3.0 627) Requirements Analyst ID - LITOOperator ID - LITOOperator ID - LITOOperator ID - MARTÍN [id number] 06:16:11 Test Item Value Reference Range Interpretation Comments PHOSPHORUS (BEAKER) (test code = 3.4 mg/dL 2.5-4.5 604) Requirements Analyst ID - LITOPROTHROMBIN TIME/[id number] 06:03:04 Test Item Value Reference Range Interpretation Comments PROTIME (BEAKER) 12.4 seconds 9.3-12.0 H Final Infor mation (test code = 759) (Auto Outp ut) INR (BEAKER) (test 1.14 See_Comment Final Inf ormation code = 370) (Auto Output) [Automated mess age] The system [employer] generated this result transmitted ref erence range: <=5.90. The reference range was not used to int erpret this result as normal/abnormal . RECOMMENDED COUMADIN/WARFARIN INR THERAPY RANGESSTANDARD DOSE: 2.0 - 3.0 Includes: PROPHYLAXIS for venous thrombosis, systemic embolization; TREATMENT for venous thrombosis and/or pulmonary embolus.HIGH RISK: Target INR is 2.5-3.5 for patients with mechanical heart valves.[id number] 06:03:04 Test Item Value Reference Range Interpretation Comments PARTIAL THROMBOPLASTIN 29.5 seconds 23.0-35.0 Final Information TIME (BEAKER) (test (Auto Ou tput) code = 760) POCT-GLUCOSE [id number] 20:00:47 Test Item Value Reference Range Interpretation Comments POC-GLUCOSE METER 172 mg/dL 70-110 H : TESTED A T [facility] (BEAKER) (test code [address], = 1538) [place] [address]: Requirements Analyst/Techni faviola ID = [id number] for Will iams, Ina POCT-GLUCOSE [id number] 18:09:30 Test Item Value Reference Range Interpretation Comments POC-GLUCOSE METER 121 mg/dL 70-110 H : TESTED A T [facility] (BEAKER) (test code [address], = 1538) [place] [address]: Requirements Analyst/Techni faviola ID = [id number] for Will iams, Robe POCT-GLUCOSE [id number] 12:48:21 Test Item Value Reference Range Interpretation Comments POC-GLUCOSE METER 102 mg/dL 70-110 : TESTED A T [facility] (BEAKER) (test code [address], = 1538) [place] [address] 478: Requirements Analyst/Techni faviola ID = [id number] for Kerline Gallegos POCT-GLUCOSE [id number] 08:00:17 Test Item Value Reference Range Interpretation Comments POC-GLUCOSE METER 119 mg/dL 70-110 H : TESTED A T [facility] (BEAKER) (test code [address], = 1538) [place] [address] 478: Requirements Analyst/Techni faviola ID = [id number] for Robe Agrawal POCT-GLUCOSE [id number] 21:28:11 Test Item Value Reference Range Interpretation Comments POC-GLUCOSE METER 227 mg/dL 70-110 H : TESTED A T [facility] (BEAKER) (test code [address], = 1538) [place] [address] 478: Requirements Analyst/Techni faviola ID = [id number] for Libia Pop POCT-GLUCOSE [id number] 15:35:44 Test Item Value Reference Range Interpretation Comments POC-GLUCOSE METER 168 mg/dL 70-110 H : TESTED A T [facility] (BEAKER) (test code [address], = 1538) [place] [address] 478: Requirements Analyst/Techni faviola ID = [id number] for Maribel Jimenez, REPL CVC/TUNNELED W/O [id number] 11:59:00 [facility] 1950 Sex: FFINAL [...] a permanent image was stored. Catheter size (Zambian): 15.5Catheter flush: Heparin (100 units/mL) Abbie sureThe [...] MDReport Verified Date/Time: 01/10/2022 11:59:48 Reading Location: [facility] Radiology Reading Room POCT-GLUCOSE [id number] 11:32:33 Test Item Value Reference Range Interpretation Comments POC-GLUCOSE METER 105 mg/dL 70-110 : TESTED A T [facility] 1317 (BEAKER) (test code [address], = 1538) [facility] 77 478: Requirements Analyst/Techni faviola ID = [id number] for Anne breen, Maribel BASIC METABOLIC [id number] 04:51:32 Test Item Value Reference Range Interpretation [...] high >=90 G2 Mildly decreased 60-89 G3a Mild ly to moderately 45-5 9 G3b Moderately to [...] not appl icable for dialysis patien ts Requirements Analyst ID - LITOOperator ID - LITOOperator ID - LITOOperator ID - LITOOperator ID - LITOOperator ID - LITOOperator ID - LITOOperator ID - LITOOperator ID - LITOOperator ID - [id number] 04:50:58 Test Item Value Reference Range Interpretation Comments MAGNESIUM (BEAKER) (test code = 2.0 mg/dL 1.5-3.0 627) Requirements Analyst ID - LITOOperator ID - LITOOperator ID - LITOOperator ID - MARTÍN [id number] 04:48:19 Test Item Value Reference Range Interpretation Comments PHOSPHORUS (BEAKER) (test code = 3.9 mg/dL 2.5-4.5 604) Requirements Analyst ID - [id number] 04:44:00 Test Item Value Reference Range Interpretation Comments PARTIAL THROMBOPLASTIN 51.7 seconds 23.0-35.0 H Final Information TIME (BEAKER) (test (Auto Ou tput) code = 760) CBC W/PLT COUNT & AUTO [id number] 04:24:30 Test Item Value Reference Range Interpretation [...] PERCENT (BEAKER) (test code = 2801) POCT-GLUCOSE [id number] 21:26:47 Test Item Value Reference Range Interpretation Comments POC-GLUCOSE METER 127 mg/dL 70-110 H : TESTED A T [facility] (BEAKER) (test code [facility] [address], = 1538) [facility] 77 478: Requirements Analyst/Techni faviola ID = [id number] for Libia Pop [id number] 20:08:11 Test Item Value Reference Range Interpretation Comments PARTIAL THROMBOPLASTIN 41.3 seconds 23.0-35.0 H Final Information TIME (BEAKER) (test (Auto Ou tput) code = 760) POCT-GLUCOSE [id number] 17:14:06 Test Item Value Reference Range Interpretation Comments POC-GLUCOSE METER 154 mg/dL 70-110 H : TESTED A T [facility] (BEAKER) (test code [facility] [address], = 1538) [place] [address] 478: Requirements Analyst/Techni fvaiola ID = [id number] for Aileen Loja POCT-GLUCOSE [id number] 11:55:38 Test Item Value Reference Range Interpretation Comments POC-GLUCOSE METER 153 mg/dL 70-110 H : TESTED A T [facility] (BEAKER) (test code [facility], = 1538) [place] [address]: Requirements Analyst/Techni faviola ID = [id number] for Maribel Jimenez HEPATITIS B SURFACE [id number] 11:29:52 Test Item Value Reference Range Interpretation Comments HEPATITIS B SURFACE ANTIBODY 53.8 mIU/mL <8.0 H (BEAKER) (test code = 647) Requirements Analyst ID - [id number] 10:04:36 Test Item Value Reference Range Interpretation Comments PARTIAL THROMBOPLASTIN 36.3 seconds 23.0-35.0 H Final Information TIME (BEAKER) (test (Auto Ou tput) code = 760) POCT-GLUCOSE [id number] 07:31:03 Test Item Value Reference Range Interpretation Comments POC-GLUCOSE METER 111 mg/dL 70-110 H : TESTED A T [facility] (BEAKER) (test code [address], = 1538) [place] [address]: Requirements Analyst/Techni faviola ID = [id number] for Pankaj Jimeneze [id number] 06:13:46 Test Item Value Reference Range Interpretation Comments MAGNESIUM (BEAKER) (test code = 1.8 mg/dL 1.5-3.0 627) Requirements Analyst ID - [id number] ID - [id number] ID - [id number] ID - [id number] METABOLIC [id number] 06:12:49 Test Item Value Reference Range Interpretation [...] rted eGFR is based on the CKD-EPI 2020 equation t hat does not use a race coefficientEsti mated GFR is not as accur ate as Creatinine Nilda roni in predicting glom erular filtration rate . Estimated GFR is not appl icable for dialysis patien ts Requirements Analyst ID - [id number] ID - [id number] ID - [id number] ID - [id number] ID - YMVVMYAVZ914Mwmbwreh ID - [id number] ID - [id number] ID - LUSOGJLRC502Intwsviu ID - XSKZKSOSG070Zypzkwuy ID - [id number] 06:10:51 Test Item Value Reference Range Interpretation Comments PHOSPHORUS (BEAKER) (test code = 3.0 mg/dL 2.5-4.5 604) Requirements Analyst ID - [id number] W/PLT COUNT & AUTO [id number] 05:49:35 Test Item Value Reference Range Interpretation [...] PERCENT (BEAKER) (test code = 2801) POCT-GLUCOSE [id number] 05:17:03 Test Item Value Reference Range Interpretation Comments POC-GLUCOSE METER 108 mg/dL 70-110 : TESTED A T [facility] (BEAKER) (test code [facility] [address], = 1538) [facility] 77 478: Requirements Analyst/Techni faviola ID = [id number] for esperanza Abraham [id number] 01:14:37 Test Item Value Reference Range Interpretation Comments PARTIAL THROMBOPLASTIN 37.5 seconds 23.0-35.0 H Final Information TIME (BEAKER) (test (Auto Ou tput) code = 760) HEPATITIS B SURFACE [id number] 18:36:43 Test Item Value Reference Range Interpretation Comments HEPATITIS B SURFACE ANTIGEN (2) Nonreactive Nonreactive (BEAKER) (test code = 2585) Requirements Analyst ID - [id number] 17:00:29 Test Item Value Reference Range Interpretation Comments POC-GLUCOSE METER 131 mg/dL 70-110 H : TESTED A T [facility] (BEAKER) (test code [address], = 1538) [place] [address]: Requirements Analyst/Techni faviola ID = [id number] for Migel Holt [id number] 16:38:44 Test Item Value Reference Range Interpretation Comments PARTIAL THROMBOPLASTIN 42.5 seconds 23.0-35.0 H Final Information TIME (BEAKER) (test (Auto Ou tput) code = 760) POCT-GLUCOSE [id number] 12:29:39 Test Item Value Reference Range Interpretation Comments POC-GLUCOSE METER 168 mg/dL 70-110 H : TESTED A T [facility] (BEAKER) (test code [address], = 1538) [place] [address]: Requirements Analyst/Techni faviola ID = [id number] for Migel Holt POCT-GLUCOSE [id number] 08:10:36 Test Item Value Reference Range Interpretation Comments POC-GLUCOSE METER 136 mg/dL 70-110 H : TESTED A T [facility] (BEAKER) (test code [address], = 1538) [place] [address]: Requirements Analyst/Techni faviola ID = [id number] for Migel Holt BASIC METABOLIC [id number] 06:18:43 Test Item Value Reference Range Interpretation [...] not appl icable for dialysis patien ts Requirements Analyst ID - LITOOperator ID - LITOOperator ID - LITOOperator ID - LITOOperator ID - LITOOperator ID - LITOOperator ID - LITOOperator ID - LITOOperator ID - LITOOperator ID - [id number] 06:17:29 Test Item Value Reference Range Interpretation Comments MAGNESIUM (BEAKER) (test code = 1.6 mg/dL 1.5-3.0 627) Requirements Analyst ID - LITOOperator ID - LITOOperator ID - LITOOperator ID - MARTÍN HEMOGLOBIN [id number] 06:16:10 Test Item Value Reference Range Interpretation Comments HEMOGLOBIN A1C (BEAKER) (test code = 8.5 % 4.3-6.1 H 368) Requirements Analyst ID - [id number] 06:14:08 Test Item Value Reference Range Interpretation Comments PHOSPHORUS (BEAKER) (test code = 5.0 mg/dL 2.5-4.5 H 604) Requirements Analyst ID - [id number] 05:59:43 Test Item Value Reference Range Interpretation Comments PARTIAL THROMBOPLASTIN 45.4 seconds 23.0-35.0 H Final Information TIME (BEAKER) (test (Auto Ou tput) code = 760) CBC W/PLT COUNT & AUTO [id number] 05:48:29 Test Item Value Reference Range Interpretation [...] H PERCENT (BEAKER) (test code = 2801) [id number] 21:22:07 Test Item Value Reference Range Interpretation Comments PARTIAL THROMBOPLASTIN 26.5 seconds 23.0-35.0 Final Information TIME (BEAKER) (test (Auto Ou tput) code = 760) POCT-GLUCOSE [id number] 21:12:37 Test Item Value Reference Range Interpretation Comments POC-GLUCOSE METER 136 mg/dL 70-110 H : TESTED A T [facility] (BEAKER) (test code [address], = 1538) [facility] 77 478: Requirements Analyst/Techni faviola ID = [id number] for esperanza Abraham POC uszpabx5106-01-22 16:00:00 Test Item Value Reference Range Interpretation Comments POC glucose (test code = 158 mg/dL 65-99 H Ope rator Name: [id number]) Bob tilley ID: [id number] Lab Interpretation (test Abnormal code = 11963-4) [facility] [id number] 16:00:00 Test Item Value Reference Range Interpretation Comments POC glucose (test code = 158 mg/dL 65-99 H Ope rator Name: [id number]) Bob tilley ID: [id number] Lab Interpretation (test Abnormal code = 17618-4) [facility] [id number] 15:05:25 Test Item Value Reference Range Interpretation Comments Case number (test code = [id number]) Surgical pathology See link below for report (test code = PDF Lab Report 3497) Result status (test code This is Final Report = [id number]) for [id number] [facility] [id number] 15:05:25 Test Item Value Reference Range Interpretation Comments Case number (test code = [id number]) Surgical pathology See link below for report (test code = PDF Lab Report 2255) Result status (test code This is Final Report = [id number]) for [id number]2022-04-20 12:23:18 Test Item Value Reference Range [...] of 12-AUG-2021 06:02,-No significant change was found- [place] [address] [id number] 12:23:18 Test Item Value Reference Range Interpretation [...] of 12-AUG-2021 06:02,-No significant change was found- [facility] ED Preliminary Interpretation - Not an [id number] 21:23:51 Test Item Value Reference Range Interpretation Comments VALERIANO (test code = VALERIANO) Marley Cronin NP-Jan 09/07/2021 9:29 [facility] ED Preliminary Interpretation - Not an OrderPerformed by: Marley Cronin NP-CAuthorized by: Trinidad Menard MD ECG reviewed by ED Physician in the absence of a professor of architecture: no Previous ECG: Previous ECG: UnavailableInterpretat ion: Interpretation: abnormal Rate: ECG rate: 80 ECG rate assessment: normal Rhythm: Rhythm: paced Pacing: Type of pacing: VentricularEctopy: Ectopy: none QRS: QRS axis: Normal QRS intervals: NormalConduction: Conduction: normal ST segments: ST segments: Normal Lab Interpretation Abnormal (test code = 82111-6) [facility] ED Preliminary Interpretation - Not an [id number] 21:23:51 Test Item Value Reference Range Interpretation Comments VALERIANO (test code = VALERIANO) Marley Cronin NP-C 09/07/2021 9:29 [facility] Preliminary Interpretation - Not an OrderPerformed by: Marley Cronin NP-CAuthorized by: Trinidad Menard MD ECG reviewed by ED Physician in the absence of a professor of architecture: no Previous ECG: Previous ECG: UnavailableInterpretat ion: Interpretation: abnormal Rate: ECG rate: 80 ECG rate assessment: normal Rhythm: Rhythm: paced Pacing: Type of pacing: VentricularEctopy: Ectopy: none QRS: QRS axis: Normal QRS intervals: NormalConduction: Conduction: normal ST segments: ST segments: Normal Lab Interpretation Abnormal (test code = 26391-9) [facility] RNA [Presence] in Respiratory specimen by LANG with probe [id number] 13:39:12 Test Item Value Reference Range Interpretation Comments SARS-CoV-2 (COVID-19) RNA Not detected [Presence] in Respiratory specimen by LANG with probe detection (test code = 10592-0) Whether patient is employed in a Unknown healthcare setting (test code = 29310-7) Whether the patient has symptoms Unknown related to condition of interest (test code = 04481-1) Whether the patient was Unknown hospitalized for condition of interest (test code = 72757-3) Whether the patient was admitted Unknown to intensive care unit (ICU) for condition of interest (test code = 22875-3) Whether patient resides in a Unknown congregate care setting (test code = 88693-9) status (test code = Unknown 26154-1) Date and time of symptom onset Unknown (test code = 09491-1) [facility] myocardial [id number] 02:36:07 Test Item Value Reference Range Interpretation Comments Target HR (test code 148.00 bpm = 9526020280) Resting HR (test 83 BPM code = 2779972516) Resting BP (test 178/79 mmHg code = 4715783945) Percent HR (test 54.05 % code = 4655093344) Post Peak HR (test 80 bpm code = 1958445292) Post Peak BP (test 161/77 mmHg code = 9754797690) Radiology Study observation (narrative) (test code = 32452-0) VALERIANO (test code = Study Quality: good. [...] left ventricle ejection fraction is mildly reduced. [facility] stress [id number] 22:06:40 Test Item Value Reference Range Interpretation Comments Resting BP (test code = 9477623887) Protocol Name (test LEXISCAN code = 0860192931) Time in Exercise 00:01:00 Phase (test code = 3721800603) Max Systolic BP (test code = 3433334198) Max Diastolic BP (test code = 8106643937) Max Heart Rate (test code = 3617233410) Max Predicted Heart Rate (test code = 3858705468) Test Indication (test code = 4144846999) Arrhy During Ex (test code = 0981478018) ECG Interp Before EX (test code = 2778506020) ECG Interp During Ex (test code = 2674361991) Ex Summary Comment (test code = 6721154661) Overall HR Response to Exercise (test code = 3795246911) Overall BP Response To Exercise (test code = 7898377690) Reason for Termination (test code = 4061219057) Stress Test Waveform interpreted in Impression (test code report associated with = 2859937302) image study. No interpretation is provided as part of this Stress ECG report.- [facility] [id number] 22:06:40 Test Item Value Reference Range Interpretation Comments Resting BP (test code = 3062539137) Protocol Name (test LEXISCAN code = 9472479689) Time in Exercise 00:01:00 Phase (test code = 2784880796) Max Systolic BP (test 178 code = 1168146790) Max Diastolic BP 79 (test code = 3731265816) Max Heart Rate (test 81 code = 6486050040) Max Predicted Heart 148 Rate (test code = 1048811243) Test Indication (test code = 4952753687) Arrhy During Ex (test code = 4040024317) ECG Interp Before EX (test code = 3065753909) ECG Interp During Ex (test code = 9464550275) Ex Summary Comment (test code = 4776450570) Overall HR Response to Exercise (test code = 8271194313) Overall BP Response To Exercise (test code = 7594527309) Reason for Termination (test code = 2373128624) Stress Test Waveform interpreted in Impression (test code report associated with = 5550263299) image study. No interpretation is provided as part of this Stress ECG report.- [facility] Complete, (w Contrast, Strain and 3D if needed)2021-08-01 17:44:46 Test Item Value Reference Range Interpretation Comments AoV Area, Vmax (test 2.41 cm2 code = 5897721181) AoV Area, VTI (test 2.36 cm2 code = 9316764430) AoV Mean PG (test 5.59 mmHg code = 8767624581) AoV Peak PG (test 11.08 mmHg code = 6491596181) AoV Vmax (test code 1.77 m/s = 7312564489) AoV VTI (test code = 0.30 m 2447497605) IVS,d (test code = 1.11 cm 9629179247) LV,d (test code = 5.57 cm 8007589880) LV EF,A2C (test code 44.91 % = 2177879370) LV EF,A4C (test code 42.43 % = 8190957961) LV EF,BP (test code 42.76 % = 2630332117) [place],d A2C (test 7.79 cm code = 3223070772) [place],d A4C (test 7.59 cm code = 3029899904) [place],s A2C (test 7.10 cm code = 1459070185) [place],s A4C (test 6.58 cm code = 3668987621) LV,s (test code = 4.42 cm 9557102177) LV SV,A2C (test code 59.18 % = 0951633421) LV SV,A4C (test code 64.42 % = 6989256213) LV Vol,d A2C (test 131.77 mL code = 6945441104) LV Vol,d A4C (test 151.81 ml code = 1278217186) LV Vol,d BP (test 142.79 ml code = 5306544609) LV Vol,s A2C (test 72.60 mL code = 5954517285) LV Vol,s A4C (test 87.39 ml code = 2885886623) LV Vol,s BP (test 81.72 nl code = 4513959417) LVOT Diam,S (test 2.08 cm code = 4413248018) LVOT Vmax (test code 1.16 m/s = 4798959829) LVOT VTI (test code 0.21 m = 2105716066) LVPWD,d (test code = 1.05 cm 7949960239) TR Vpeak (test code 2.66 mm/s = 6429653624) AR Press Half Time 504.65 ms (test code = 3677160743) TR pk grad (test 27.27 mmHg code = 1025415998) MR Vmax (test code = 6.10 m/s 7880481850) MR peak grad (test 121.70 mmHg code = 9042124205) E wave decelartion 149.68 msec time (test code = 7002562729) MV Peak E Des (test 1.46 m/s code = 3264088534) LVOT stroke volume 0.71 cm3 (test code = 8519596235) AV LVOT peak 5.36 mmHg gradient (test code = 7514643055) LV SYS VOL (test 88.60 ml code = 7224856792) LV THOMPSON VOL (test 151.60 ml code = 5677621958) LA area s A4C (test 35.87 cm2 code = 3018031363) LV SV Teich 2D (test 63.00 ml code = 0543174893) LVOT SI (test code = 38.28 ml/m2 7138376660) AoV Cusp sep (test 1.72 code = 6611989473) AoV Vmn (test code = 1.10 4892872859) IVS s 2D (test code 1.72 = 9824501536) AR slope (test code 2.59 = 4368178467) Ar Vmax (test code = 3.99 7947273461) LA Ao Ratio Mmode 2.07 (test code = 1182642775) LVOT Vmn (test code 0.80 = 2135677295) Pt Size (test code = 162.56 4601152333) Pt Wt (test code = 81.19 8974861644) PV AT (test code = 94.20 msec 1651902294) LVOT mean grad (test 2.88 mmHg code = 0229180762) AR DT (test code = 1541.52 msec 8890766337) AR pk grad (test 58.41 mmHg code = 5845715385) LVPW s PLAX (test 1.41 cm code = 4316965220) MV Decel slope (test 9.79 m/s2 code = 0593899300) LA Vol MOD A4C (test 124.31 ml code = 8488677024) Velocity Ratio 0.66 m/s (V1/V2) (test code = 4689) EF (test code = 41.56 % 4446489021) LVOT area (test code 3.40 cm2 = 9331141940) LVOT VTI (CM) (test 21.00 cm code = 2125921789) RA pressure (test 15.00 mmHg code = 3025963157) LA Vol 4C (test code 124.00 ml = 3579037138) RVSP (test code = 43.38 mmHg 7654466563) LA diam s (test code 5.50 cm = 2743626127) Aortic Root (test 2.63 cm code = 1782509188) FL End Thompson Grad 11.73 (test code = 1122837733) FL End Diat Des 1.71 (test code = 4764142706) AR maxPG (test code 63.74 = 3158425855) D E excurs (test 2.00 code = 7974873644) E f slope (test code 0.08 = 1837845442) E prime lat (test 0.06 code = 2066868985) E keaton sept (test 0.09 code = 2146546562) PV acc T slope (test 6.80 code = 1322574649) CONDE BP EF (test 43.00 % code = 2451387688) LA VOL 2C (test code 138.00 ml = 0006520197) VALERIANO (test code = The left ventricle [...] aortic valve stenosis.PericardiumNo pericardial effusion seen. [facility]ish OzduzkogBMUE-VhR-3 (COVID-19) RNA [Presence] in Respiratory specimen by LANG with probe jonqnaksn5769-46-16 23:11:03 Test Item Value Reference Range Interpretation Comments SARS-CoV-2 (COVID-19) RNA Not detected [Presence] in Respiratory specimen by LANG with probe detection (test code = 49128-6) Whether patient is employed in a Unknown healthcare setting (test code = 97815-5) Whether the patient has symptoms Unknown related to condition of interest (test code = 43005-8) Whether the patient was Unknown hospitalized for condition of interest (test code = 98156-2) Whether the patient was admitted Unknown to intensive care unit (ICU) for condition of interest (test code = 45030-9) Whether patient resides in a Unknown congregate care setting (test code = 86586-9) status (test code = Unknown 97529-5) Date and time of symptom onset Unknown (test code = 79588-8) [facility]-CoV-[facility] (COVID-19) RNA [Presence] in Respiratory specimen by LANG with probe dubhktwgt0416-86-01 11:45:59 Test Item Value Reference Range Interpretation Comments SARS-CoV-2 (COVID-19) RNA Not detected Not-Detected [Presence] in Respiratory specimen by LANG with probe detection (test code = 80256-7) Whether patient is employed in a healthcare setting (test code = 19223-5) Whether the patient has symptoms related to condition of interest (test code = 92377-1) Patient was hospitalized because of this condition (test code = 08493-2) Whether the patient was admitted to intensive care unit (ICU) for condition of interest (test code = 86628-6) Whether patient resides in a congregate care setting (test code = 37289-7) [facility]-CoV-2 (COVID-19) RNA [Presence] in Respiratory specimen by LANG with probe oebecaqnk6868-47-71 05:28:15 Test Item Value Reference Range Interpretation Comments SARS-CoV-2 (COVID-19) RNA Not detected Not-Detected [Presence] in Respiratory specimen by LANG with probe detection (test code = 51330-3) [facility]-CoV-2 (COVID-19) RNA [Presence] in Respiratory specimen by LANG with probe ggazbijvm3067-16-07 23:52:31 Test Item Value Reference Range Interpretation Comments SARS-CoV-2 (COVID-19) RNA Not detected Not-Detected [Presence] in Respiratory specimen by LANG with probe detection (test code = 42308-3) [facility]
[2022-09-29 23:38] LABS: Absolute Lymphocytes (CBC) 1.3 K/uL (0.7-4.9); Hematocrit 30.3 % (36.0-45.0); Lymphocytes % 17.9 % (15.3-44.8); MPV 7.3 fL (7.6-11.3); RBC Red Blood Cell Count 3.74 M/uL (3.86-4.86)
[2022-09-29 23:41] LABS: Protime INR 1.25
[2022-09-30] MEDS ORDERED: FUROSEMIDE 40 MG/4 ML VIAL ONE ×2 (00:21→01:25)
[2022-09-30 00:24] LABS: AST/SGOT 4 U/L (15-37); Albumin 2.4 g/dL (3.4-5.0); Alkaline Phosphatase 137 U/L (45-117); BUN Blood Urea Nitrogen 27 mg/dL (7-18); Bicarbonate 27 mEq/L (21-32); Bilirubin Direct 0.2 mg/dL (0-0.2); Bilirubin Indirect, Calculated 0.1 (0.2-0.8); Bilirubin Total 0.3 mg/dL (0.2-1.0); Glomerular Filtration Rate 14 ml/min (=/>90); Glucose Level 292 mg/dL (74-106); Magnesium 1.9 mg/dL (1.6-2.4); NT PRO-BNP 51622 pg/mL (<125); Potassium 3.7 mEq/L (3.5-5.1); Protein, Total 7.1 g/dL (6.4-8.2); Sodium Level 134 mEq/L (136-145); Troponin High Sensitivity 52.3 pg/mL (<58.9)
[2022-09-30 00:26] LABS: ALT/SGPT < 10 U/L (13-56)
--- NOTE | 2022-09-30 03:29 | ER ---
Nurse's Notes [facility] Name: Latricia Cadet Age: 71 yrs Sex: Female : 1950 Arrival Date: 09/29/2022 Time: 21:57 Bed 3 Private MD: Diagnosis: End stage renal disease;Chronic pulmonary edema Presentation: 09/29 22:03 Chief complaint: EMS states: Mid chest pain 10 with SOB that started at 1130 today pf1 before dialysis,generalized body pain and generalized abdominal pain with distention,onset today. 22:03 Coronavirus screen: Client denies travel out of the [place] in the last 14 days. Client pf1 presents with at least one sign or symptom that may indicate coronavirus-19. Standard/surgical mask placed on the client. Ebola Screen: Patient negative for fever greater than or equal to 101.5 degrees Fahrenheit, and additional compatible Ebola Virus Disease symptoms. 22:03 Method Of Arrival: EMS: [facility] pf1 22:05 Initial Sepsis Screen: Does the patient meet any 2 criteria? No. Patient's initial pf1 sepsis screen is negative. Does the patient have a suspected source of infection? No. Patient's initial sepsis screen is negative. Risk Assessment: Do you want to hurt yourself or someone else? Patient reports no desire to harm self or others. 22:05 Acuity: JAKE 2 pf1 - Family history:: not pertinent. - Social history:: Smoking status: Patient denies any tobacco usage or history of. Patient/guardian denies using alcohol, street drugs. - Hospitalizations: : The patient was recently seen at [facility]. Screenin:05 [facility] ED Fall Risk Assessment (Adult) History of falling in the last 3 months, pf1 including since admission No falls in past 3 months (0 pts) Confusion or Disorientation No (0 pts) Intoxicated or Sedated No (0 pts) Impaired Gait Yes (1 pt) Mobility Assist Device Used Yes (1 pt) Altered Elimination No (0 pt) Score/Fall Risk Level 3 or more points = High Risk Oriented to surroundings, Maintained a safe environment, Educated pt \T\ family on fall prevention, incl call for assistance when getting out of bed, Assessed \T\ reinforced patient's understanding of fall precautions, Provided non-skid footwear, Hourly rounding (assess needs \T\ fall precautionary measures) done, Used ambulatory aids as needed (educated on \T\ assisted with), Used gait belt as appropriate Implemented a Fall Risk Plan of Care, Apply high fall risk patient identification: yellow non skid footwear/ fall signage, Remained w/in arm's length of patient and in sight while toileting, Offered frequent toileting (1:1 observation), Remained with patient while ambulating, Utilized family, sitter, or virtual sash clamp operator as indicated. 22:05 Abuse screen: Denies threats or abuse. pf1 22:05 Nutritional screening: No deficits noted. Tuberculosis screening: No symptoms or risk pf1 factors identified. Assessment: 22:05 General: Appears in no apparent distress. uncomfortable, well developed, Behavior is pf1 calm, cooperative, appropriate for age, quiet. 22:05 Pain: Complains of pain in chest,generalized abdominal pain and generalized body pf1 pain,onset today Pain currently is 10 out of 10 on a pain scale. Neuro: No deficits noted. Level of Consciousness is awake, alert, obeys commands, Oriented to Appropriate for age. Cardiovascular: Reports chest pain, Capillary refill < 3 seconds Patient's skin is warm and dry. Dialysis shunt: in the right arm, with palpable thrill, with auscultated bruit, with no erythema, with no edema, no bleeding noted. Respiratory: Reports shortness of breath at rest EMS stated patient uses 02 at home at night Airway is patent Respiratory effort is even, unlabored, Respiratory pattern is regular, symmetrical. GI: Abdomen is round distended, Bowel sounds present X 4 quads. Reports lower abdominal pain, upper abdominal pain. : No deficits noted. No signs and/or symptoms were reported regarding the genitourinary system. EENT: No deficits noted. No signs and/or symptoms were reported regarding the EENT system. Musculoskeletal: Circulation, motion, and sensation intact. Capillary refill < 3 seconds, Swelling present in right leg and left leg. 09/30 00:28 Reassessment: Patient appears in no apparent distress at this time. Patient and/or pf1 family updated on plan of care and expected duration. Pain level reassessed. Patient is alert, oriented x 3, equal unlabored respirations, skin warm/dry/pink. Patient states symptoms have improved. pure wick applied to patient. 01:30 Reassessment: Patient appears in no apparent distress at this time. Patient and/or pf1 family updated on plan of care and expected duration. Pain level reassessed. Patient is alert, oriented x 3, equal unlabored respirations, skin warm/dry/pink. Patient states symptoms have improved. Patient sleeping at this time. lights dimmed. 02:30 Reassessment: Patient appears in no apparent distress at this time. Patient and/or pf1 family updated on plan of care and expected duration. Pain level reassessed. Patient is alert, oriented x 3, equal unlabored respirations, skin warm/dry/pink. 03:30 Reassessment: Patient appears in no apparent distress at this time. Patient and/or pf1 family updated on plan of care and expected duration. Pain level reassessed. Patient is alert, oriented x 3, equal unlabored respirations, skin warm/dry/pink. patient sleeping, lights dimmed, continue monitoring patient. . 03:51 Reassessment: Patient waiting for ride to arrive to transport patient home. . pf1 Vital Signs: 09/29 22:05 BP 152 / 49; Pulse 80; Resp 18; Temp 98.6; Pulse Ox 97% on 2 lpm NC; Weight 67.59 kg; pf1 Height 5 ft. 4 in. ; Pain 02/28; 23:00 BP 157 / 59; Pulse 87; Resp 19; Pulse Ox 97% on 2 lpm NC; pf1 09/30 00:00 BP 124 / 57; Pulse 80; Resp 19; Pulse Ox 100% on 3 lpm NC; pf1 01:00 BP 122 / 58; Pulse 80; Resp 19; Pulse Ox 100% on 3 lpm NC; pf1 02:00 BP 128 / 59; Pulse 80; Resp 20; Pulse Ox 100% on NC; pf1 02:34 BP 106 / 55; Pulse 80; Resp 20; Pulse Ox 100% on 3 lpm NC; pf1 03:23 BP 139 / 68; Pulse 79; Resp 20; Temp 98.2; Pulse Ox 100% on 3 lpm NC; pf1 03:53 BP 144 / 70; Pulse 81; Resp 16; Temp 98.1; Pulse Ox 100% on 3 lpm NC; Pain 09/28; pf1 09/29 22:05 Body Mass Index 25.58 (67.59 kg, 162.56 cm) pf1 09/29 22:05 Pain Scale: Adult pf1 03:53 Pain Scale: Adult pf1 ED Course: 09/29 22:01 Patient arrived in ED. rn 22:01 Nicho Ellison MD is Attending Physician. rn 22:05 Patient has correct armband on for positive identification. Placed in gown. Bed in low pf1 position. Call light in reach. Side rails up X2. 22:05 Arm band placed on. pf1 22:53 XRAY CXR (1 view) In Process Unspecified. EDMS 23:08 Triage completed. pf1 23:20 Inserted saline lock: 22 gauge in left upper arm, using aseptic technique. Blood pf1 collected. 23:29 Lactate w/ 2H reflex if indic. Sent. pf1 23:40 Flu Sent. pf1 23:40 COVID-19 SARS RT PCR Sent. pf1 09/30 01:15 Della fisher RN is Primary Nurse. pf1 02:30 CT Abd/Pelvis - Without Contrast In Process Unspecified. EDMS 03:36 No provider procedures requiring assistance completed. IV discontinued, intact, pf1 bleeding controlled, No redness/swelling at site. Pressure dressing applied. Administered Medications: 00:00 Drug: Furosemide IVP 40 mg Route: IVP; Site: left upper arm; pf1 00:35 Follow up: Response: No adverse reaction pf1 01:22 Drug: Furosemide IVP 40 mg Route: IVP; Site: left upper arm; pf1 01:58 Follow up: Response: No adverse reaction pf1 Medication: 03:53 VIS not applicable for this client. pf1 Outcome: 03:28 Discharge ordered by . rn 03:52 Discharged to home via wheelchair, with family. pf1 03:52 Condition: stable 03:52 Discharge instructions given to patient, family, Instructed on discharge instructions, follow up and referral plans. Demonstrated understanding of instructions, follow-up care. 04:14 Patient left the ED. pf1 Signatures: Dispatcher [employer] EDMS Nicho Ellison MD MD rn finley, Pamala, RN RN pf1
--- NOTE | 2022-09-30 03:29 | EDPHYS ---
Physician Documentation [facility] Name: Latricia Cadet Age: 71 yrs Sex: Female : 1950 Arrival Date: 09/29/2022 Time: 21:57 Bed 3 Private MD: ED Physician Nicho Ellison HPI: 09/29 22:03 This 71 yrs old Female presents to ER via Unassigned with complaints of sob. rn 22:03 The patient has shortness of breath at rest. Onset: The symptoms/episode began/occurred rn at an unknown time. Duration: The symptoms are continuous. The patient's shortness of breath is aggravated by nothing, is alleviated by sitting up, application of supplemental oxygen. Associated signs and symptoms: Pertinent positives: chest pain, non-productive cough, Pertinent negatives: diaphoresis, fever, hemoptysis, loss of consciousness. Severity of symptoms: At their worst the symptoms were moderate in the emergency department the symptoms are unchanged. The patient has experienced similar episodes in the past. The patient has been recently seen at the [facility] Emergency Department. Pt reports in hospital last week or so, has CHF/COPD, on dialysis, went to dialysis today, no fever, + cough with generalized weakness and fatigue. No trauma. . - Family history:: not pertinent. - Social history:: Smoking status: Patient denies any tobacco usage or history of. Patient/guardian denies using alcohol, street drugs. - Hospitalizations: : The patient was recently seen at [facility]. ROS: 22:03 Constitutional: Negative for fever, chills, and weight loss, Eyes: Negative for injury, rn pain, redness, and discharge, Cardiovascular: + chest pain and sob Respiratory: + sob and cough Abdomen/GI: Negative for abdominal pain, nausea, vomiting, diarrhea, and constipation MS/Extremity: Negative for injury and deformity, Skin: Negative for injury, rash, and discoloration, Neuro: Negative for headache, numbness, tingling, and seizure. Exam: 22:03 Constitutional: This is a well developed, well nourished patient who is awake, alert, rn and in no acute distress. Head/Face: Normocephalic, atraumatic. ENT: dry MM Cardiovascular: Regular rate and rhythm. No pulse deficits. Respiratory: No increased work of breathing, crackles at bases Abdomen/GI: Soft, non-tender Skin: Warm, dry MS/ Extremity: Pulses equal, no cyanosis. Neurovascular intact. Full, normal range of motion. Equal circumference. 2+ edema bilateral lower ext Neuro: Awake and alert, GCS 15, oriented to person, place, time, and situation. Vital Signs: 22:05 BP 152 / 49; Pulse 80; Resp 18; Temp 98.6; Pulse Ox 97% on 2 lpm NC; Weight 67.59 kg; pf1 Height 5 ft. 4 in. ; Pain 10/10; 23:00 BP 157 / 59; Pulse 87; Resp 19; Pulse Ox 97% on 2 lpm NC; pf1 09/30 00:00 BP 124 / 57; Pulse 80; Resp 19; Pulse Ox 100% on 3 lpm NC; pf1 01:00 BP 122 / 58; Pulse 80; Resp 19; Pulse Ox 100% on 3 lpm NC; pf1 02:00 BP 128 / 59; Pulse 80; Resp 20; Pulse Ox 100% on NC; pf1 02:34 BP 106 / 55; Pulse 80; Resp 20; Pulse Ox 100% on 3 lpm NC; pf1 03:23 BP 139 / 68; Pulse 79; Resp 20; Temp 98.2; Pulse Ox 100% on 3 lpm NC; pf1 03:53 BP 144 / 70; Pulse 81; Resp 16; Temp 98.1; Pulse Ox 100% on 3 lpm NC; Pain 5/10; pf1 09/29 22:05 Body Mass Index 25.58 (67.59 kg, 162.56 cm) pf1 09/29 22:05 Pain Scale: Adult pf1 03:53 Pain Scale: Adult pf1 MDM: 09/29 22:01 Patient medically screened. rn 23:28 ED course: pt states still makes urine, lasix ordered. . rn 09/30 03:25 Differential diagnosis: Anemia CHF exacerbation, Myocardial Infarction pneumonia, rn Pneumothorax pulmonary edema. Data reviewed: vital signs, nurses notes, lab test result(s), EKG, radiologic studies, CT scan, plain films, and as a result, I will discharge patient. Independent interpretation of the following test(s) in the Emergency Department EKG: See my EKG interpretation above X-Ray: My interpretation is CXR images show mild pulmonary edema, not significantly changed from previous study per my interpretation. Counseling: I had a detailed discussion with the patient and/or guardian regarding: the historical points, exam findings, and any diagnostic results supporting the discharge/admit diagnosis, lab results, radiology results, the need for outpatient follow up, to return to the emergency department if symptoms worsen or persist or if there are any questions or concerns that arise at home. Special discussion: I discussed with the patient/guardian in detail that at this point there is no indication for admission to the hospital. It is understood, however, that if the symptoms persist or worsen the patient needs to return immediately for re-evaluation. 03:25 ED course: Pt without oxygen requirement, vitals stable, urinated well with good rn response to lasix. No emergent indication for admission or transfer at this point. Return precautions given and understood. . 09/29 22:03 Order name: BMP; Complete Time: 00:36 09/29 22:03 Order name: Blood Culture Adult (2) 09/29 22:03 Order name: CBC with Diff; Complete Time: 23:57 09/29 22:03 Order name: Hepatic Function; Complete Time: 00:36 09/29 22:03 Order name: Magnesium; Complete Time: 00:36 09/29 22:03 Order name: NT PRO-BNP; Complete Time: 00:36 09/29 22:03 Order name: PT-INR; Complete Time: 23:57 09/29 22:03 Order name: Ptt, Activated; Complete Time: 23:57 09/29 22:03 Order name: Troponin HS; Complete Time: 00:36 09/29 22:51 Order name: Lactate w/ 2H reflex if indic.; Complete Time: 23:57 09/29 22:51 Order name: COVID-19 SARS RT PCR; Complete Time: 00:36 09/29 22:51 Order name: Flu; Complete Time: 01:16 09/29 22:03 Order name: XRAY CXR (1 view) 09/30 01:23 Order name: CT Abd/Pelvis - Without Contrast 09/29 22:03 Order name: EKG; Complete Time: 22:03 09/29 22:03 Order name: Cardiac monitoring; Complete Time: 22:41 09/29 22:03 Order name: EKG - Nurse/Tech; Complete Time: 22:41 rn 09/29 22:03 Order name: IV Saline Lock; Complete Time: 23:29 rn 09/29 22:03 Order name: Labs collected and sent; Complete Time: : rn 09/29 22:03 Order name: O2 Per Protocol; Complete Time: :41 rn 09/29 22:03 Order name: O2 Sat Monitoring; Complete Time: :41 rn Administered Medications: 00:00 Drug: Furosemide IVP 40 mg Route: IVP; Site: left upper arm; pf1 00:35 Follow up: Response: No adverse reaction pf1 01:22 Drug: Furosemide IVP 40 mg Route: IVP; Site: left upper arm; pf1 01:58 Follow up: Response: No adverse reaction pf1 Disposition Summary: 09/30/22 03:28 Discharge Ordered Location: Home rn Problem: an ongoing problem rn Symptoms: have improved rn Condition: Stable rn Diagnosis - End stage renal disease rn - Chronic pulmonary edema rn Followup: rn - With: Private Physician - When: 1 - 2 days - Reason: Recheck today's complaints, Re-evaluation by your physician Discharge Instructions: - Discharge Summary Sheet rn - Pulmonary Edema rn - intern brand - End-Stage Kidney Disease rn Forms: - Medication Reconciliation Form rn - Thank You Letter rn - Antibiotic cleaner furniture - Prescription Opioid Use rn Signatures: Dispatcher [employer] Nicho Allen MD MD rn finley, Pamala, RN RN pf1
[2022-09-30 04:38] VITALS: O2SAT 100
[2022-09-30 04:47] VITALS: BP 144/70; TEMP 98.1
--- NOTE | 2022-09-30 05:33 | EKG ---
Test Date: 2022-09-29 Test Time: 22:38:32 [place] Block Setter: JOSHUA MEASUREMENT RESULTS: Intervals: Rate: 80 [place]: QRSD: 134 QT: 454 QTc: 523 [place]: P: 131 [place]: QRS: -66 T: 74 INTERPRETIVE STATEMENTS: Atrial flutter Left axis deviation Right bundle branch block Inferior infarct, age undetermined Abnormal ECG Compared to ECG 09/27/2022 12:35:20 Left-axis deviation now present Sinus rhythm no longer present First degree AV block no longer present Left anterior fascicular block no longer present Bifascicular block no longer present Myocardial infarct finding still present Electronically Signed On 09-30-22 05:32:48 CDT by Aakash Ashford
--- NOTE | 2022-10-04 08:41 | RAD REPORT ---
EXAM DESCRIPTION: CT - Abdomen Pelvis Wo Contrast - 09/30/2022 5:14 am CLINICAL HISTORY: The patient is 71 years old and is Female; ABD PAIN TECHNIQUE: Axial computed tomography images of the abdomen and pelvis without intravenous contrast. Sagittal and coronal reformatted images were created and reviewed. This CT exam was performed usi ng one or more of the following dose reduction techniques: automated exposure control, adjustment o f the mA and/or kV according to patient size, and/or use of iterative reconstruction technique. COMPARISON: CT abdomen pelvis May 02, 2022 FINDINGS: LUNG BASES: Dependent densities in the lung bases is present. HEART: Heart is enlarged. ABDOMEN: LIVER: Homogeneous without focal mass. GALLBLADDER AND BILE DUCTS: Surgical clips are present in the right upper quadrant, consistent wi th previous cholecystectomy. PANCREAS: Unremarkable. No ductal dilation. SPLEEN: Unremarkable. ADRENALS: Unremarkable. No mass. KIDNEYS AND URETERS: No obstructing stones. No hydronephrosis. No perinephric fluid. STOMACH AND BOWEL: The stomach is decompressed. The small bowel is also decompressed. Stool is no kenneth throughout the colon. Scattered colonic diverticula are present without surrounding inflammation. There is no mucosal thickening or evidence of obstruction. PELVIS: APPENDIX: No findings to suggest acute appendicitis. BLADDER: Unremarkable. No stones. REPRODUCTIVE: Unremarkable as visualized. ABDOMEN and PELVIS: INTRAPERITONEAL SPACE: Unremarkable. No free air. No significant fluid collection. BONES/JOINTS: Scoliotic curvature of the spine is present. There is no acute fracture. SOFT TISSUES: The soft tissues are normal. VASCULATURE: Extensive atherosclerosis of the vasculature is noted throughout the abdomen and pel vis. No abdominal aortic aneurysm. LYMPH NODES: Unremarkable. No enlarged lymph nodes. IMPRESSION: 1. Colonic diverticulosis. 2. Extensive vascular calcifications. Electronically signed by: Christy Dawn MD 09/30/2022 2:47 AM CDT Due to temporary technical issues with the PACS/Fluency reporting system, reports are being signed by the in house radiologist without review as a courtesy to ensure prompt reporting. The interpreting r adiologist is fully responsible for the content of the report.
--- NOTE | 2022-10-04 09:10 | RAD REPORT ---
EXAM DESCRIPTION: RAD - Chest Single View - 09/29/2022 10:51 pm CLINICAL HISTORY: The patient is 71 years old and is Female; [facility] MAIN TECHNIQUE: Frontal view of the chest. COMPARISON: 07/30/2022 chest radiograph FINDINGS: LUNGS: Mild bilateral perihilar streaky opacities suggesting pulmonary congestion and mi ld central interstitial edema. No other focal consolidation. PLEURAL SPACE: No pleural effusion. No pneumothorax. HEART: Enlarged. MEDIASTINUM: Stable enlargement of the cardiomediastinal silhouette. BONES/JOINTS: No acute osseous abnormality. VASCULATURE: Partially visualized vascular stent noted in the left upper extremity. TUBES, LINES AND DEVICES: Cardiac stimulator device demonstrated over the left chest with leads ter minating over the right atria, right ventricle, and coronary sinus. IMPRESSION: Stable cardiomegaly with mild bilateral perihilar streaky opacities suggesting pulmonary congestion and mild central interstitial edema. Electronically signed by: Wellington Snider MD 09/29/2022 11:02 PM CDT Due to temporary technical issues with the PACS/Fluency reporting system, reports are being signed by the in house radiologist without review as a courtesy to ensure prompt reporting. The interpreting r adiologist is fully responsible for the content of the report.
== END 2022-09-30 04:14 | disposition home or self-care (01) ==
LOC: ER 21:57
DX: J81.1 Chronic pulmonary edema (principal); N18.6 End stage renal disease; Z99.2 Dependence on renal dialysis; I50.9 Heart failure, unspecified; J44.9 Chronic obstructive pulmonary disease, unspecified; Z20.822 Contact with and (suspected) exposure to COVID-19
CPT/HCPCS: 93005; 87040 ×2; 85025; 80048; 36415; 83735; 85610; 80076; 83605; 85730; 84484; 83880; 87804 ×2; 74176; 71045; 96374; 99284; U0003; J1940 ×2

== ENCOUNTER 2022-10-06 08:39 | Emergency (ER) | payer OTHER ==
--- OUTSIDE RECORDS SUMMARY | 2022-10-06 08:50 | XMS REPORT | Continuity of Care Document ---
:1950 Author Organization [facility] t Address [address] [place] [address] Care Team Providers Name Role Phone Pcp, Patient Does Not Have A Primary Care Physician [phone] Greg Fuentes Attending Clinician Unavailable Doctor Unassigned, Raub Attending Clinician Unavailable Luc Alvarez Attending Clinician Alannah Renner MD Attending Clinician ANNALEE BEY Attending Clinician Unavailable Annalee Bey MD Attending Clinician Mauro Mendoza MD Attending Clinician ALANNAH RENNER Attending Clinician Unavailable Trinidad Menard MD Attending Clinician Corrine Osuna MD Attending Clinician Natasha HOLLIDAY, Edwin Toribio Attending Clinician [phone] John HOLLIDAY, Shanon Vidal Attending Clinician [phone] Tim HOLLIDAY, Tammy Thompson Attending Clinician Armen HOLLIDAY, Edwin Attending Clinician Scot HOLLIDAY, Tasneem Attending Clinician Savannah HOLLIDAY, Annalee Attending Clinician Amaury HOLLIDAY, Leodan Attending Clinician Ru HOLLIDAY, Josemanuel Attending Clinician Andre Navarro Attending Clinician Juan BETH, Grazyna Magana Attending Clinician Abbie HLOLIDAY, Joanna Attending Clinician Provider, Unknown Attending Clinician [...] Number Effective Date Expiration Date S gus [facility] [id number] 2021 (NON-CONTRACTED) 00:00:00 [facility] [id number] 2021 [facility] 00:00:00 [facility] - [id number] [facility] (O) Problems Condition Condition Condition Status Onset Resolution Last Treating Co mments Source Name Details Category Date Date Treatment Clinician Date Complicati Complicati Disease Active [facility] Me dical with with 00 Center dialysis dialysis catheter catheter Diarrhea Diarrhea Disease Active Metho di -28 st 00:00: Hospita 00 l Chronic Chronic [...] Chest pain Disease Active 2019-[address] 00:00: Hospita 00 l Chest pain [...] Other Disease Active Methodi specified specified 07-10 st anemias anemias 00:00: Hospita 00 l [...] ethodi rosis of rosis of 3-28 [facility] [place] Hospita 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 follows with Dr. Ngo in [place] Neuropathy Neuropathy Disease Active Overview : [facility] of this [place] note Medical might be Branch different from the original. in feet and legs Hyperchole Hyperchole Disease Active Overview : [facility] steremia steremia Formattin ity of g of this [place] note Medical might be Branch different from the original. follows with Dr. Higuera HTN HTN Disease Active Overview: [facility] s (hypertens (hypertens Formattin ity of ion) ion) g of this [place] note Medical might be Branch different from the original. follows with Dr. Higuera Atrial Atrial Disease Active Overview: [facility] s fibrillati fibrillati Formattin ity of on on g of this [place] note Medical might be Branch different from the original. follows with Dr. Higuera Allergies, Adverse Reactions, Alerts Allergy Allergy Status Severity Reaction(s) Onset Inactive Treating Comm ents Source Name Type Date Date Clinician No Known DA Active U [facility] Allergie -17 Clear s 00:00: An 00 [facility] Hydrocod Propensi Active GI "not an Metho di one ty to Intolerance 12 allergy, st adverse 00:00: but it Hospita reaction 00 upsets my l s to stomach drug every time I take it" No Known DA Active U [facility] Allergie 9-11 Clear s 00:00: An 00 [facility] NO KNOWN Drug Active Univers ALLERGIE Class ity of S [facility] NO KNOWN Allergy Active [facility] [place] Family History Family Member Diagnosis Comments Start Date Stop Date Source Natural sister Breast cancer [facility] Natural sister Cancer [facility] [place] Natural brother Cancer [facility] Natural brother Colon cancer [facility] Natural brother Lung cancer [facility] Maternal grandmother Brain cancer [facility] Maternal grandmother [facility] Natural mother Cancer [facility] Natural mother [facility] Social History Social Habit Start Date Stop Date Quantity Comments Source History [facility] Gnosticist Alcohol Std Drinks Hospit al Gender identity [facility] [place] Sexual orientation [facility] Hospital History of Social 2022-07-28 2022-07-[address] function 00:00:00 00:00:00 Hospital Tobacco use and 2022-01-08 2022-01-[address] [facility] ke exposure 00:00:00 00:00:00 tobacco non-user [facility] Center Alcohol intake 2021-09-14 2021-09-14 Current Gnosticist 00:00:00 00:00:00 non-drinker of Hospital alcohol (finding) History SDOH 2020-04-05 2020-04-05 1 Gn[facility] Alcohol Frequency 00:00:00 00:00:00 Hospita l History [facility] 2020-04-05 2020-04-05 1 [facility] Alcohol Binge 00:00:00 00:00:00 Hospital Sex [birth year] At [birth year] [facility] 00:00:00 00:00:00 Hospital Smoking Status Start Date Stop Date Source Never smoked tobacco [facility] Center Medications Ordered Filled Start Stop Current Ordering Indication Dosage Frequency Signature Comments Components Source Medication Medication Date Date Medication? Clinician (SIG) Name Name aspirin 81 Yes 81mg QD Take [address] MG chewable 8-30 by mouth Luke s tablet 16:49: daily. [address] apixaban Yes 2.5mg Q.5D Take 2.5 [...] MG 16:49: mouth Medical tablet 03 nightly. [place] aspirin 81 0 Yes 81mg QD Take [address] MG chewable 8-30 by mouth Luke s tablet 16:49: daily. [facility] 03 [place] apixaban Yes 2.5mg Q.5D Take 2.[address] (Eliquis) 8-30 mg by [facility] 2.5 mg Tab 16:49: mouth 2 Medi keira tablet 03 (two) Center times daily. pramipexole 2021-0 Yes 1mg QD Take [address] (MIRAPEX) 1 8-30 by mouth Luke s MG tablet 16:49: nightly. [address] semaglutide 2021-0 Yes .25mg Inject CHI [...] MG 16:49: mouth Medical tablet 03 nightly. [place] aspirin 81 2021-0 Yes 81mg QD Take [address] MG chewable 8-30 by mouth Luke s tablet 16:49: daily. [address] apixaban 2021-0 Yes 2.5mg Q.5D Take 2.[address] (Eliquis) 8-30 mg by [facility] 2.5 mg Tab 16:49: mouth 2 Medi [place]ira tablet 03 (two) Center times daily. pramipexole 2021-0 Yes 1mg QD Take [address] (MIRAPEX) 1 8-30 by mouth Luke s MG tablet 16:49: nightly. [address] semaglutide 0 Yes .25mg Inject CHI [...] MG 16:49: mouth Medical tablet 03 nightly. [place] aspirin 81 0 Yes 81mg QD Take [address] MG chewable 8-30 by mouth Luke s tablet 16:49: daily. [address] apixaban 2021-0 Yes 2.5mg Q.5D Take 2.[address] (Eliquis) 8-30 mg by [facility] 2.5 mg Tab 16:49: mouth 2 Medi [place] tablet 03 (two) Center times daily. pramipexole 0 Yes 1mg QD Take [address] (MIRAPEX) 1 8-30 by mouth Luke s MG tablet 16:49: nightly. [address] semaglutide 0 Yes .25mg Inject [facility] (Ozempic) 8-30 0.25 mg [facility] 0.25 mg or 16:49: subcutaneo M edical 0.5 mg(2 03 usly every Cente r mg/1.5 mL) 7 days PnIj Every Monday . pantoprazol 0 Yes 40mg QD Take [address] e 8-30 by mouth [facility]ukes (PROTONIX) 16:49: daily. Medic al [address] [place] [address] tablet traZODone 0 Yes 100mg QD Take [address] (DESYREL) 8-30 mg by [facility] 100 MG 16:49: mouth Medical tablet 03 nightly. [place] aspirin 81 0 Yes 81mg QD Take [address] MG chewable 8-30 by mouth Luke s tablet 16:49: daily. [address] apixaban 0 Yes 2.5mg Q.5D Take 2.[address] (Eliquis) 8-30 mg by [facility] 2.5 mg Tab 16:49: mouth 2 Medi [place]ira tablet 03 (two) Center times daily. pramipexole 0 Yes 1mg QD Take [address] (MIRAPEX) 1 8-30 by mouth Luke s MG tablet 16:49: nightly. [address] semaglutide 0 Yes .25mg Inject CHI [...] Medical tablet 03 nightly. Center aspirin 81 2021-0 Yes 81mg QD Take [address] MG chewable 8-30 by mouth Luke s tablet 16:49: daily. [facility] 03 [place] apixaban 2021-0 Yes 2.5mg Q.5D Take 2.[address] (Eliquis) 8-30 mg by [facility]ukes 2.5 mg Tab 16:49: mouth 2 Medi [place] tablet 03 (two) Center times daily. pramipexole 2021-0 Yes 1mg QD Take [address] (MIRAPEX) 1 8-30 by mouth Luke s MG tablet 16:49: nightly. Medi [place]ira 03 [place] semaglutide 0 Yes .25mg Inject [facility] [...] MG 16:49: mouth Medical tablet 03 nightly. [place] aspirin 81 2021-0 Yes 81mg QD Take [address] MG chewable 8-30 by mouth Luke s tablet 16:49: daily. [facility] 03 [place] apixaban 2021-0 Yes 2.5mg Q.5D Take 2.5 [...] 03 nightly. Center hydrALAZINE 2021- No 25mg Q.[id number] Take [address] (APRESOLINE 01-18- [id number] by mouth 3 [facility] ) 25 MG [...] :00 daily. Center hydrALAZINE 2021- No 25mg Q.[id number] Take [address] (APRESOLINE 01-18 [id number] by mouth 3 [facility] ) 25 MG [...] .25ug QD Take 0.[address] (ROCALTROL) 8 08-30 mcg by [facility]ukes 0.25 MCG 11:55: 00:00 mouth Medical capsule 27 :00 daily. Center hydrALAZINE 2021- No 25mg Q.[id number] Take [address] (APRESOLINE 01-18- [id number] by mouth 3 [facility] ) 25 MG [...] 00:00 subcutaneo Me dical SEMGLEE) 27 :00 [facility] Center 100 unit/mL nightly injection [...] :00 daily. Center hydrALAZINE 2021- No 25mg Q.[id number] Take [address] (APRESOLINE 01-18 [id number] by mouth 3 [facility] ) 25 MG [...] :00 daily. Center hydrALAZINE 2021- No 25mg Q.[id number] Take [address] (APRESOLINE 01-18 [id number] by mouth 3 [facility] ) 25 MG [...] :00 daily. Center hydrALAZINE 2021- No 25mg Q.[id number] Take [address] (APRESOLINE 01-18- [id number] by mouth 3 [facility] ) 25 MG [...] 00:00 subcutaneo Me dical SEMGLEE) 27 :00 [facility] Center 100 unit/mL nightly injection [...] :00 daily. Center hydrALAZINE 2021- No 25mg Q.[id number] Take [address] (APRESOLINE 01-18 [id number] by mouth 3 [facility] ) 25 MG [...] St -acetaminop 01-18 tablet by [place] [place] ([place] 00:00: 23:59 mouth Medic al 5-325) 00 :00 every 6 Center 5-325 mg (six) per tablet hours as needed for Pain (Right knee septic joint) for up to 30 days. Max Daily Amount: 4 tablets HYDROcodone 2021- No 1{tbl} Take [address] -acetaminop 01-18 tablet by [place] pablo ([place] 00:00: 23:59 mouth Medic al 5-325) 00 :00 every 6 Center 5-325 mg (six) per tablet hours as needed for Pain (Right knee septic joint) for up to 30 days. Max Daily Amount: 4 tablets HYDROcodone 2021- No 1{tbl} Take [address] -acetaminop 01-18 tablet by [place] pablo ([place] 00:00: 23:59 mouth Medic al 5-325) 00 :00 every 6 Center 5-325 mg (six) per tablet hours as needed for Pain (Right knee septic joint) for up to 30 days. Max Daily Amount: 4 tablets cefTRIAXone 2021-2021- No 2g QD Inject 2 g [facility] [...] right knee joint growing Klebsiella . cefTRIAXone No 2g QD Inject [address] (ROCEPHIN) 01-18 intravenou [facility] nel 2 g in 00:00: 23:59 sly daily [...] other day for 7 doses. vancomycin 2021-0 2021- No 125mg Q2D Take 1 Met [facility] (Vancocin) 10-11- capsule st 125 MG 00:00: 04:59 (125 mg Hospita capsule 00 :00 total) by l mouth every other day for 7 doses. vancomycin 2021-0 2021- No 125mg Q2D Take 1 Met [facility] (Vancocin) 10-11-[address] 125 MG 00:00: 04:59 (125 mg Hospita capsule 00 :00 total) by l mouth every other day for 7 doses. vancomycin 2021-0 2021- No 125mg Q2D Take 1 Met [facility] (Vancocin) 10-11-[address] 125 MG 00:00: 04:59 (125 mg Hospita capsule 00 :00 total) by l mouth every other day for 7 doses. vancomycin 2021-0 2022- No 125mg Q2D Take 1 Met [facility] (Vancocin) 10-11-[address] 125 MG 00:00: 04:59 (125 mg Hospita capsule 00 :00 total) by l mouth every other day for 7 doses. vancomycin 2022-0 2022- No 125mg Q2D Take 1 Met hodi [...] for 14 doses. vancomycin 2021- No 125mg Q.[id number] Take 1 [facility] (Vancocin) 09-24 05-[id number] 125 MG 00:00: 04:59 3D (125 mg Hospita capsule 00 :00 total) by l mouth 3 (three) times a day for 8 doses. vancomycin 2021-2021- No 125mg Q.[id number] Take 1 [facility] (Vancocin) 09-24 05-[id number] 125 MG 00:00: 04:59 3D (125 mg Hospita capsule 00 :00 total) by l mouth 3 (three) times a day for 8 doses. vancomycin 2021- No 125mg Q.[id number] Take 1 [facility] (Vancocin) 09-24 05-[id number] 125 MG 00:00: 04:59 3D (125 mg Hospita capsule 00 :00 total) by l mouth 3 (three) times a day for 8 doses. vancomycin 2021-2021- No 125mg Q.[id number] Take 1 [facility] (Vancocin) 09-24 05-[id number] 125 MG 00:00: 04:59 3D [...] 03 (two) l times a day. metoprolol 2022-0 2022- No 100mg Q.5D Take 100 M ethodi tartrate 4-29 04-[address] (LOPRESSOR) 18:55: 00:00 mouth 2 Ho spita 100 mg 03 :00 (two) l tablet times a day. furosemide 2022-0 2022- No 40mg Q.5D Take 40 mg [facility] (LASIX) 40 4-29 04-[address] mg tablet 18:55: 00:00 (two) Hospit a 03 :00 times a l day. metoprolol 2022-0 2- No 100mg Q.5D Take 100 M ethodi tartrate 4-29 04-[address] (LOPRESSOR) 18:55: 00:00 mouth 2 Ho spita 100 mg 03 :00 (two) l tablet times a day. furosemide 2021-0 2021- No 40mg Q.5D Take 40 mg [facility] (LASIX) 40 09-17 04-[address] mg tablet 18:55: 00:00 (two) Hospit a 03 :00 times a l day. BUMETanide 2021-0 2021- No 1mg QD Take 1 mg M ethodi (BUMEX) 1 09-16- by mouth st MG tablet 18:55: 00:00 daily. Hospi ta 55 :00 l BUMETanide 2021-0 2021- No 1mg QD Take 1 mg M ethodi (BUMEX) 1 09-16- by mouth st MG tablet 18:55: 00:00 daily. Hospi ta 55 :00 l pramipexole 2021-0 Yes 1mg QD Take 1 mg M ethodi (MIRAPEX) 1 - by mouth st MG tablet 18:55: nightly. [...] 51 daily. l hydrALAZINE 2021- No 25mg Q.[id number] Take 1 [facility]i (APRESOLINE 09-16-29 [id number] tablet (25 st ) 25 MG 00:00: [...] 40mg QD Take 1 Met hodi e - 05-29 tablet (40 st (Protonix) 00:00: 04:59 mg total) H ospita 40 MG EC 00 :00 by mouth l tablet daily for 30 days. hydrALAZINE 2021-0 2021- No 25mg Q.[id number] Take 1 [facility]i (APRESOLINE 4-16 10-29 [id number] tablet (25 st ) 25 MG 00:00: 04:59 3D mg total) [facility] tablet 00 :00 by mouth l every 8 (eight) hours for 30 days. aspirin 81 2021-0 2- No 81mg QD Chew 1 Meth ramiro mg chewable 09-16-29 tablet (81 s t tablet 00:00: 04:59 mg total) Hospi ta 00 :00 daily for l 30 days. carvediloL 2021-0 2021- No 25mg Q.5D Take 1 Meth [facility]ro (COREG) 25 09-16 05-29 tablet (25 st MG tablet 00:00: [...] for 30 days. hydrALAZINE 2021-2021- No 25mg Q.[id number] Take 1 [facility] (APRESOLINE -16 10- [id number] tablet (25 st ) 25 MG 00:00: 04:59 3D mg total) [facility] tablet 00 :00 by mouth l every 8 (eight) hours for 30 days. aspirin 81 2021-2021- No 81mg QD Chew 1 Meth ramiro mg chewable 09-16-29 tablet (81 s t tablet 00:00: 04:59 mg total) Hospi ta 00 :00 daily for l 30 days. carvediloL 2021-0 2021- No 25mg Q.5D Take 1 Meth ramiro (COREG) 25 - 05-29 tablet (25 st MG tablet 00:00: 04:59 mg total) Ho spita 00 :00 by mouth 2 l (two) times a day for 30 days. pantoprazol 2021-0 2021- No 40mg QD Take 1 Met hodi e 4- 05-29 tablet (40 st (Protonix) 00:00: 04:59 mg total) H ospita 40 MG EC 00 :00 by mouth l tablet daily for 30 days. hydrALAZINE 2021- No 25mg Q.[id number] Take 1 Methodi (APRESOLINE 09-16- [id number] tablet (25 st ) 25 MG 00:00: [...] for 30 days. hydrALAZINE 2021- No 25mg Q.[id number] Take 1 [facility] (APRESOLINE 09-16- [id number] tablet (25 st ) 25 MG 00:00: [...] times a day for 30 days. pantoprazol 2021-0 2021- No 40mg QD Take 1 Met hodi e 09-16- tablet (40 st (Protonix) 00:00: 04:59 mg total) H ospita 40 MG EC 00 :00 by mouth l tablet daily for 30 days. hydrALAZINE 2021-2021- No 25mg Q.[id number] Take 1 [facility]i (APRESOLINE 09-16 [id number] tablet (25 st ) 25 MG 00:00: [...] times a day for 8 days. vancomycin 2021-2021- No 125mg Q.25D Take 1 Me thodi (Vancocin) 09-16 05-[address] 125 MG 00:00: 04:59 (125 mg Hospita capsule 00 :00 total) by l mouth 4 (four) times a day for 8 days. vancomycin 2021-2021- No 125mg Q.25D Take [...] :00 skin l injection daily. (vial) digOXIN 2021-2021- No 125ug QD Take 125 Meth ramiro [...] :00 skin l injection daily. (vial) digOXIN 2021-2021- No 125ug QD Take 125 Meth ramiro [...] 100mg Q.5D Take 100 M ethodi tartrate -25 03-[address] (LOPRESSOR) 19:46: 00:00 mouth 2 Ho spita 100 mg 31 :00 (two) l tablet times a day. hydrALAZINE 2021- No 100mg Q.[id number] Take 100 [facility]i (APRESOLINE 3-25 03-[id number] ) 100 MG 19:46: [...] (two) l tablet times a day. cholecalcif No 5000U QD Take 5,000 Methodi sophia, [...] times a day. hydrALAZINE 2021-2021- No 100mg Q.[id number] Take 100 [facility] (APRESOLINE 3-25 03-[id number] ) 100 MG 19:46: [...] 2021-2021- No 12U QD Inject Methodi GLARGINE 3-25 04-[address] (LANTUS) 00:00: 00:00 (12 Units Hos keo 100 unit/mL 00 :00 total) l injection under the (vial) skin nightly for 30 days. carvediloL 2021-0 2021- No 25mg Q.5D Take 1 Meth ramiro (COREG) 25 -13 09-28 tablet (25 st MG tablet 00:00: 00:00 mg total) Ho spita 00 :00 by mouth 2 l (two) times a day for 30 days. hydrALAZINE 2021-0 2021- No 50mg Q.[id number] Take 1 [facility] (APRESOLINE 3-13 09-28 [id number] tablet (50 st ) 50 MG 00:00: 00:00 3D mg total) [facility] tablet 00 :00 by mouth l every 8 (eight) hours for 30 days. insulin 2021-2021- No 12U QD Inject Methodi GLARGINE 08-13-[address] (LANTUS) 00:00: 00:00 (12 Units Hos keo 100 unit/mL 00 :00 total) l injection under the (vial) skin nightly for 30 days. carvediloL 2021-0 2021- No 25mg Q.5D Take 1 Meth ramiro (COREG) 25 08-13-28 tablet (25 st MG tablet 00:00: 00:00 mg total) Ho spita 00 :00 by mouth 2 l (two) times a day for 30 days. hydrALAZINE 2021-2021- No 50mg Q.[id number] Take 1 [facility] (APRESOLINE 3-25 -28 [id number] tablet (50 st ) 50 MG 00:00: [...] daily with breakfast for 30 days. SITagliptin 2021-0 2021- No 25mg QD Take 1 Met hodi (JANUVIA) 1-15 02-15 tablet (25 st 25 MG 00:00: 05:59 [...] morning for 30 days. levalbutero 2021- No [id number] 1.25mg Q8H Take 3 mL Methodi l [...] for 30 days. insulin 2021- No 5U Q.[id number] Inject M ethodi LISPRO 06-04 [id number] 0.05 mL (5 st (ADMELOG) 00:00: 05:59 [...] to 30 days. budesonide 2020-05 Yes 3mg Q.[id number] Take 3 mg Methodi EC 2-12 [id number] by mouth 3 st (ENTOCORT 00:00: 3D (three) Hospi ta EC) 3 mg 24 00 times a l hr capsule day. budesonide 2020-05 Yes 3mg Q.[id number] Take 3 mg Methodi EC 2-12 [id number] by mouth 3 st (ENTOCORT 00:00: 3D (three) Hospi ta EC) 3 mg 24 00 times a l hr capsule day. budesonide 2020-05 Yes 3mg Q.[id number] Take 3 mg Methodi EC 2-12 [id number] by mouth 3 st (ENTOCORT 00:00: 3D (three) Hospi ta EC) 3 mg 24 00 times a l hr capsule day. budesonide 2020-05 Yes 3mg Q.[id number] Take 3 mg Methodi EC 2-12 [id number] by mouth 3 st (ENTOCORT 00:00: 3D (three) Hospi ta EC) 3 mg 24 00 times a l hr capsule day. budesonide 2020-05 Yes 3mg Q.[id number] Take 3 mg Methodi EC 2-12 [id number] by mouth 3 st (ENTOCORT 00:00: 3D (three) Hospi ta EC) 3 mg 24 00 times a l hr capsule day. budesonide 2020-05 Yes 3mg Q.[id number] Take 3 mg Methodi EC 2-12 [id number] by mouth 3 st (ENTOCORT 00:00: 3D [...] Under breast and between legs allopurinol Yes [id number] 150mg Take 150 Univers (ZYLOPRIM) 1-04 mg by ity of 100 mg 15:21: mouth [place] tablet 32 daily. Medical Branch CALCIUM Yes .25mg Take 0.25 Univ ers CARBONATE/V 1-04 mg by ity of ITAMIN D3 15:21: mouth [place] (VITAMIN 32 daily. Medical D-3 ORAL) Branch allopurinol Yes [id number] 150mg Take 150 Univers (ZYLOPRIM) 1-04 mg by ity of 100 mg 15:21: mouth [place] tablet 32 daily. Medical Branch CALCIUM Yes .25mg Take 0.25 Univ ers CARBONATE/V 1-04 mg by ity of ITAMIN D3 15:21: mouth [place] (VITAMIN 32 daily. Medical D-3 ORAL) Branch allopurinol Yes [id number] 150mg Take 150 Univers (ZYLOPRIM) 1-04 mg by ity of 100 mg 15:21: mouth [place] tablet 32 daily. Medical Branch CALCIUM Yes .25mg Take 0.25 Univ ers CARBONATE/V 1-04 mg by ity of ITAMIN D3 15:21: mouth [place] (VITAMIN 32 daily. Medical D-3 ORAL) Branch allopurinol Yes [id number] 150mg Take 150 Univers (ZYLOPRIM) 1-04 mg by ity of 100 mg 15:21: mouth [place] tablet 32 daily. Medical Branch CALCIUM Yes .25mg Take 0.25 Univ ers CARBONATE/V 1-04 mg by ity of ITAMIN D3 15:21: mouth [place] (VITAMIN 32 daily. Medical D-3 ORAL) Branch allopurinol Yes [id number] 150mg Take 150 Univers (ZYLOPRIM) 1-04 mg by ity of 100 mg 15:21: mouth [place] tablet 32 daily. Medical Branch CALCIUM Yes .25mg Take 0.25 Univ ers CARBONATE/V 1-04 mg by ity of ITAMIN D3 15:21: mouth [place] (VITAMIN 32 daily. Medical D-3 ORAL) Branch allopurinol Yes [id number] 150mg Take 150 Univers (ZYLOPRIM) 1-04 mg by ity of 100 mg 15:21: mouth [place] tablet 32 daily. Medical Branch allopurinol Yes [id number] 150mg Take 150 Univers (ZYLOPRIM) 1-04 mg by ity of 100 mg 15:21: mouth [place] tablet 32 daily. Medical Branch CALCIUM Yes .25mg Take 0.25 Univ ers CARBONATE/V 1-04 mg by ity of ITAMIN D3 15:21: mouth [place] (VITAMIN 32 daily. Medical D-3 ORAL) Branch allopurinol Yes [id number] 150mg Take 150 Univers (ZYLOPRIM) 1-04 mg [...] daily. Medical D-3 ORAL) Branch allopurinol Yes [id number] 150mg Take 150 Univers (ZYLOPRIM) 1-04 mg by ity of 100 mg 15:21: mouth [place] tablet 32 daily. Medical Branch CALCIUM Yes .25mg Take 0.25 Univ ers CARBONATE/V 1-04 mg by ity of ITAMIN D3 15:21: mouth [place] (VITAMIN 32 daily. Medical D-3 ORAL) Branch allopurinol Yes [id number] 150mg Take 150 Univers (ZYLOPRIM) 1-04 mg by ity of 100 mg 15:21: mouth [place] tablet 32 daily. Medical Branch CALCIUM Yes .25mg Take 0.25 Univ ers CARBONATE/V 1-04 mg by ity of ITAMIN D3 15:21: mouth [place] (VITAMIN 32 daily. Medical D-3 ORAL) Branch allopurinol Yes [id number] 150mg Take 150 Univers (ZYLOPRIM) 1-04 mg by ity of 100 mg 15:21: mouth [place] tablet 32 daily. [facility] Branch CALCIUM Yes .25mg Take 0.25 Univ ers CARBONATE/V 1-04 mg by ity of ITAMIN D3 15:21: mouth [place] (VITAMIN 32 daily. Medical D-3 ORAL) Branch furosemide Yes [id number] 40mg Take 40 mg Univers (LASIX) 20 1-04 by mouth ity o f mg tablet 15:19: daily. [address] furosemide Yes [id number] 40mg Take 40 mg Univers (LASIX) 20 1-04 by mouth ity o f mg tablet 15:19: daily. [address] furosemide Yes [id number] 40mg Take 40 mg Univers (LASIX) 20 1-04 by mouth ity o f mg tablet 15:19: daily. [address] furosemide Yes [id number] 40mg Take 40 mg Univers (LASIX) 20 1-04 by mouth ity o f mg tablet 15:19: daily. [address] furosemide Yes [id number] 40mg Take 40 mg Univers (LASIX) 20 1-04 by mouth ity o f mg tablet 15:19: daily. [address] furosemide Yes [id number] 40mg Take 40 mg Univers (LASIX) 20 1-04 by mouth ity o f mg tablet 15:19: daily. [address] furosemide 2017-0 Yes [id number] 40mg Take 40 mg Univers (LASIX) 20 1-04 by mouth ity o f mg tablet 15:19: daily. [address] furosemide Yes [id number] 40mg Take 40 mg Univers (LASIX) 20 1-04 by mouth ity o f mg tablet 15:19: daily. [address] furosemide 2016- Yes [id number] 40mg Take 40 mg Univers (LASIX) 20 1-04 by mouth ity o f mg tablet 15:19: daily. [address] furosemide Yes [id number] 40mg Take 40 mg Univers (LASIX) 20 1-04 by mouth ity o f mg tablet 15:19: daily. [address] furosemide Yes [id number] 40mg Take 40 mg Univers (LASIX) 20 1-04 by mouth ity o f mg tablet 15:19: daily. [address] Golimumab Yes [id number] inject U nivers (SIMPONI) 1-04 under the ity o f 50 mg/0.5 15:18: skin. [place] mL 20 Infusion Medical injection every 8 Branch weeks for rheumatoid arthritis. Golimumab Yes [id number] inject U nivers (SIMPONI) 1-04 under the ity o f 50 mg/0.5 15:18: skin. [place] mL 20 Infusion Medical injection every 8 Branch weeks for rheumatoid arthritis. Golimumab Yes [id number] inject U nivers (SIMPONI) 1-04 under the ity o f 50 mg/0.5 15:18: skin. [place] mL 20 Infusion Medical injection every 8 Branch weeks for rheumatoid arthritis. Golimumab 2017 Yes [id number] inject U nivers (SIMPONI) 1-04 under the ity o f 50 mg/0.5 15:18: skin. [place] mL 20 Infusion Medical injection every 8 Branch weeks for rheumatoid arthritis. Golimumab 2016- Yes [id number] inject U nivers (SIMPONI) 1-04 under the ity o f 50 mg/0.5 15:18: skin. [place] mL 20 Infusion Medical injection every 8 Branch weeks for rheumatoid arthritis. Golimumab Yes [id number] inject U nivers (SIMPONI) 1-04 under the ity o f 50 mg/0.5 15:18: skin. [place] mL 20 Infusion Medical injection every 8 Branch weeks for rheumatoid arthritis. Golimumab Yes [id number] inject U nivers (SIMPONI) 1-04 under the ity o f 50 mg/0.5 15:18: skin. [place] mL 20 Infusion Medical injection every 8 Branch weeks for rheumatoid arthritis. Golimumab Yes [id number] inject U nivers (SIMPONI) 1-04 under the ity o f 50 mg/0.5 15:18: skin. [place] mL 20 Infusion Medical injection every 8 Branch weeks for rheumatoid arthritis. Golimumab Yes [id number] inject U nivers (SIMPONI) 1-04 under the ity o f 50 mg/0.5 15:18: skin. [place] mL 20 Infusion Medical injection every 8 Branch weeks for rheumatoid arthritis. Golimumab Yes [id number] inject U nivers (SIMPONI) 1-04 under the ity o f 50 mg/0.5 15:18: skin. [place] mL 20 Infusion Medical injection every 8 Branch weeks for rheumatoid arthritis. Golimumab Yes [id number] inject U nivers (SIMPONI) 1-04 under the ity o f 50 mg/0.5 15:18: skin. [place] mL 20 Infusion Medical injection every 8 Branch weeks for rheumatoid arthritis. carvedilol Yes 12.5mg Take 12.5 Univers (COREG) 1-04 mg by ity of 12.5 mg 14:33: mouth 2 [place] tablet 03 (two) Medical times Branch daily with meals. linagliptin Yes [id number] Take by Univers (TRADJENTA) 1-04 mouth. ity of 5 mg tablet 14:33: [place] 03 Medical Branch apixaban 2017 Yes 5mg Take 5 mg Univ ers (ELIQUIS) 1-04 by mouth 2 ity of 2.5 mg 14:33: (two) [place] tablet 03 times Medical daily. Branch hydralAZINE Yes 50mg Take 50 mg Univers (APRESOLINE -04 by mouth ity of ) 50 mg [...] Branch daily with meals. linagliptin 2017-0 Yes [id number] Take by Univers (TRADJENTA) 1-04 mouth. ity [...] Branch daily with meals. linagliptin 2017-0 Yes [id number] Take by Univers (TRADJENTA) 1-04 mouth. ity [...] 2 [place] tablet 03 (two) Medical times [place] daily with meals. linagliptin 2017-0 Yes [id number] Take by Univers ([employer]) 1-04 mouth. ity of 5 mg tablet [...] 2 [place] tablet 03 (two) Medical times [place] daily with meals. linagliptin 2017-0 Yes [id number] Take by Univers ([employer]) 1-04 mouth. ity of 5 mg tablet [...] Branch daily with meals. linagliptin 2016-0 Yes [id number] Take by Univers (TRADJENTA) 1-04 mouth. ity [...] Branch daily with meals. linagliptin 2017-0 Yes [id number] Take by Univers (TRADJENTA) 1-04 mouth. ity [...] 2 [place] tablet 03 (two) Medical times [place] daily with meals. linagliptin 2017-0 Yes [id number] Take by Univers (TRADJENTA) 1-04 mouth. ity [...] 2 [place] tablet 03 (two) Medical times [place] daily with meals. linagliptin 2017-0 Yes [id number] Take by Univers (TRADJENTA) 1-04 mouth. ity [...] times Branch daily with meals. linagliptin Yes [id number] Take by Univers (TRADJENTA) 1-04 mouth. ity of 5 mg tablet 14:33: [place] [facility] linagliptin Yes [id number] Take by Univers (TRADJENTA) 1-04 mouth. ity of 5 mg tablet 14:33: [place] [facility] apixaban Yes 5mg Take 5 [...] hr 03 Medical tablet Branch pramipexole Yes [id number] 2mg Take 2 Univers (MIRAPEX) 1 1-04 tablets by [place] [facility] [place] mg tablet 00:00: [place] 00 bed[place]. [place] [facility] pramipexole Yes [id number] 2mg Take 2 Univers (MIRAPEX) 1 1-04 tablets by [place] y [place] mg tablet 00:00: [place] 00 bedtime. [facility] pramipexole Yes [id number] 2mg Take 2 Univers (MIRAPEX) 1 1-04 tablets by [place] [facility] [place] mg tablet 00:00: [place] bedtime. [facility] pramipexole Yes [id number] 2mg Take 2 Univers (MIRAPEX) 1 1-04 tablets by [place] y [facility] mg tablet 00:00: [place] 00 bedtime. [facility] pramipexole Yes [id number] 2mg Take 2 Univers (MIRAPEX) 1 1-04 tablets by [place] y [place] mg tablet 00:00: [place] 00 bedtime. [facility] pramipexole Yes [id number] 2mg Take 2 Univers (MIRAPEX) 1 1-04 tablets by [facility] y of mg tablet 00:00: [place] 00 bedtime. [facility] pramipexole Yes [id number] 2mg Take 2 Univers (MIRAPEX) 1 1-04 tablets by [place] y [place] mg tablet 00:00: [place] bed[place]. [facility] pramipexole Yes [id number] 2mg Take 2 Univers (MIRAPEX) 1 1-04 tablets by [place] y [place] mg tablet 00:00: [place] bed[place]. [facility] pramipexole Yes [id number] 2mg Take 2 Univers (MIRAPEX) 1 1-04 tablets by [place] y of mg tablet 00:00: [place] 00 bedtime. [facility] pramipexole Yes [id number] 2mg Take 2 Univers (MIRAPEX) 1 1-04 tablets by it y of mg tablet 00:00: [place] 00 bedtime. [facility] pramipexole Yes [id number] 2mg Take 2 Univers (MIRAPEX) 1 1-04 [...] Medical times Branch daily. glipiZIDE 2015-05 Yes [id number] 10mg Take 1 Un ke[place] XL 1-16 tablet by ity of (GLUCOTROL 00:00: [place] 10 mg 00 (two) Medical 24 hr times Branch tablet daily. glipiZIDE 2015-05 Yes [id number] 10mg Take 1 [place] XL 1-16 tablet by ity of (GLUCOTROL 00:00: [place] XL[place] 10 mg 00 (two) Medical 24 hr times Branch tablet daily. glipiZIDE 2015-05 Yes [id number] 10mg Take 1 [facility] [place] XL 1-16 tablet by ity of (GLUCOTROL 00:00: [place] XL[place] 10 mg 00 (two) Medical 24 hr times Branch tablet daily. glipiZIDE 2015-05 Yes [id number] 10mg Take 1 [place] XL 1-16 tablet by ity of (GLUCOTROL 00:00: mouth [place] XL[place] 10 mg 00 (two) Medical 24 hr times Branch tablet daily. glipiZIDE 2015-05 Yes [id number] 10mg Take 1 [place] XL 1-16 tablet by ity of (GLUCOTROL 00:00: mouth [place] XL[place] 10 mg 00 (two) Medical 24 hr times Branch tablet daily. glipiZIDE 2015-05 Yes [id number] 10mg Take 1 [place] XL 1-16 tablet by ity of (GLUCOTROL 00:00: mouth [place] XL[place] 10 mg 00 (two) Medical 24 hr times Branch tablet daily. glipiZIDE 2015-05 Yes [id number] 10mg Take 1 [place] XL 1-16 tablet by ity of (GLUCOTROL 00:00: mouth [place] XL[place] 10 mg 00 (two) Medical 24 hr times Branch tablet daily. glipiZIDE 2015-05 Yes [id number] 10mg Take 1 [place] XL 1-16 tablet by ity of (GLUCOTROL 00:00: mouth [place] XL[place] 10 mg 00 (two) Medical 24 hr times Branch tablet daily. glipiZIDE 2015-05 Yes [id number] 10mg Take 1 [facility] [place] XL 1-16 tablet by ity of (GLUCOTROL 00:00: mouth 2 [place] XL[place] 10 mg 00 (two) Medical 24 hr times Branch tablet daily. glipiZIDE 2015-05 Yes [id number] 10mg Take 1 [place] XL 1-16 tablet by ity of (GLUCOTROL 00:00: mouth 2 [place] XL[place] 10 mg 00 (two) Medical 24 hr times Branch tablet daily. glipiZIDE 2015-05 Yes [id number] 10mg Take 1 [facility] [place] XL 1-16 tablet by ity of (GLUCOTROL 00:00: [place] XL[place] 10 mg 00 (two) Medical 24 hr times Branch tablet daily. atorvastati 2015-05 Yes [id number] 10mg Take 1 Univers n (LIPITOR) 1-02 tablet by ity of 10 mg 00:00: mouth at [place] tablet 00 bedtime. Medical Branch atorvastati 2015-05 Yes [id number] 10mg Take 1 Univers n (LIPITOR) 1-02 tablet by ity of 10 mg 00:00: mouth at [place] tablet 00 bedtime. Medical Branch atorvastati 2015-05 Yes [id number] 10mg Take 1 Univers n (LIPITOR) 1-02 tablet by ity of 10 mg 00:00: mouth at [place] tablet 00 [facility]time. [facility] Yes [id number] 10mg Take 1 Univers n (LIPITOR) 1-02 tablet by ity of 10 mg 00:00: mouth at [place] tablet 00 bedtime. [facility]-05 Yes [id number] 10mg Take 1 Univers n (LIPITOR) 1-02 tablet by ity of 10 mg 00:00: mouth at [place] tablet 00 bedtime. [facility] 2015-05 Yes [id number] 10mg Take 1 Univers n (LIPITOR) 1-02 tablet by ity of 10 mg 00:00: mouth at [place] tablet 00 bedtime. [facility] 2015-05 Yes [id number] 10mg Take 1 Univers n (LIPITOR) 1-02 tablet by ity of 10 mg 00:00: mouth at [place] tablet 00 bedtime. [facility] 2015-05 Yes [id number] 10mg Take 1 Univers n (LIPITOR) 1-02 tablet by ity of 10 mg 00:00: mouth at [place] tablet 00 bedtime. [facility]05 Yes [id number] 10mg Take 1 Univers n (LIPITOR) 1-02 tablet by ity of 10 mg 00:00: mouth at [place] tablet 00 bedtime. [facility] 2015-05 Yes [id number] 10mg Take 1 Univers n (LIPITOR) 1-02 tablet by ity of 10 mg 00:00: mouth at [place] tablet 00 bedtime. [facility] 2015-05 Yes [id number] 10mg Take 1 Univers n (LIPITOR) 1-02 tablet by ity of 10 mg 00:00: mouth at [place] tablet 00 bedtime. [facility] Branch Immunizations Ordered Immunization Filled [...] odist VACCINATION 00:00:00 Hospital Pneumococcal 2020-04-29 Completed [facility] Polysaccharide 00:00:00 Hospital Zoster 2020-04-29 Completed [facility] 00:00:00 Hospital Pneumococcal 2020-04-29 Completed [facility] Polysaccharide 00:00:00 Hospital Zoster 2020-04-29 Completed [facility] 00:00:00 Hospital Pneumococcal 2020-04-29 Completed [facility] Polysaccharide 00:00:00 Hospital Zoster 2020-04-29 Completed [facility] 00:00:00 Hospital Pneumococcal 2020-04-29 Completed [facility] Polysaccharide 00:00:00 Hospital Zoster 2020-04-29 Completed [facility] 00:00:00 Hospital Pneumococcal 2020-04-29 Completed [facility] Polysaccharide 00:00:00 Hospital Zoster 2020-04-29 Completed [facility] 00:00:00 Hospital Pneumococcal 2020-04-29 Completed [facility] Polysaccharide 00:00:00 Hospital Zoster 2020-04-29 Completed [facility] 00[facility]00:00 Hospital Pneumococcal 2019-05-13 Completed [facility] Conjugate 13-Valent 00:00:00 Hospi true Pneumococcal 2019-05-13 Completed [facility] Conjugate 13-Valent 00:00:00 Hospi true Pneumococcal 2019-05-13 Completed [facility] Conjugate 13-Valent 00:00:00 Hospi true Pneumococcal 2019-05-13 Completed [facility] Conjugate 13-Valent 00:00:00 Hospi true Pneumococcal 2019-05-13 Completed [facility] Conjugate 13-Valent 00:00:00 Hospi true Pneumococcal 2019-05-13 Completed [facility] 2019-03-05 Completed [...] 2016-05-21 Completed [facility] 00:00:00 Hospital Influenza Virus 2016-02-03 Completed Universit y of Vaccine 00:00:00 [facility] Pneumococcal 13 2016-02-03 Completed Universit y of Conjugate, PCV13 00:00:00 [facility] dical (Prevnar 13) Branch TDAP 2016-02-03 Completed University of 00:00:00 [facility] Influenza Virus 2016-02-03 Completed Universit y of Vaccine 00:00:00 [facility] Pneumococcal 13 2016-02-03 Completed Universit y of Conjugate, PCV13 00:00:00 [facility] dical (Prevnar 13) Branch Influenza, 2016-02-03 Completed [facility] Unspecified 00:00:00 Hospital Pneumococcal 2016-02-03 Completed [facility] Conjugate 13-Valent 00:00:00 [facility] Tdap 2016-02-03 Completed [facility] 00:00:00 Hospital Influenza, 2016-02-03 Completed [facility] Unspecified 00:00:00 Hospital Pneumococcal 2016-02-03 Completed [facility] Conjugate 13-Valent 00:00:00 [facility] Tdap 2016-02-03 Completed [facility] 00:00:00 Hospital Influenza, 2016-02-03 Completed [facility] Unspecified 00:00:00 Hospital TDAP 2016-02-03 Completed University of 00:00:00 [facility] Pneumococcal 2016-02-03 Completed [facility] Conjugate 13-Valent 00:00:00 [facility] Tdap 2016-02-03 Completed [facility] 00:00:00 Hospital Influenza, 2016-02-03 Completed [facility] Unspecified 00:00:00 Hospital Pneumococcal 2016-02-03 Completed [facility] Conjugate 13-Valent 00:00:00 [facility] Tdap 2016-02-03 Completed [facility] 00:00:00 Hospital Influenza, 2016-02-03 Completed [facility] Unspecified 00:00:00 Hospital Pneumococcal 2016-02-03 Completed [facility] Conjugate 13-Valent 00:00:00 [facility] Tdap 2016-02-03 Completed [facility] 00:00:00 Hospital Influenza Virus 2016-02-03 Completed Universit y of Vaccine 00:00:00 [facility] Pneumococcal 13 2016-02-03 Completed Universit y of Conjugate, PCV13 00:00:00 [facility] dical (Prevnar 13) Branch TDAP 2016-02-03 Completed University of 00:00:00 [facility] Influenza Virus 2016-02-03 Completed Universit y of Vaccine 00:00:00 [facility] Pneumococcal 13 2016-02-03 Completed Universit y of Conjugate, PCV13 00:00:00 [facility] dical (Prevnar 13) Branch TDAP 2016-02-03 Completed University of 00:00:00 [facility] Influenza Virus 2016-02-03 Completed Universit y of Vaccine 00:00:00 [facility] Pneumococcal 13 2016-02-03 Completed Universit y of Conjugate, PCV13 00:00:00 [facility] dical (Prevnar 13) Branch TDAP 2016-02-03 Completed University of 00:00:00 [facility] Influenza Virus 2016-02-03 Completed Universit y of Vaccine 00:00:00 [facility] Pneumococcal 13 2016-02-03 Completed Universit y of Conjugate, PCV13 00:00:00 [facility] dical (Prevnar 13) Branch AP 2016-02-03 Completed University of 00:00:00 [facility] Influenza Virus 2016-02-03 Completed Universit y of Vaccine 00:00:00 [facility] Pneumococcal 13 2016-02-03 Completed Universit y of Conjugate, PCV13 00:00:00 [facility] dical (Prevnar 13) Branch Influenza, 2016-02-03 Completed [facility] Unspecified 00:00:00 Hospital Pneumococcal 2016-02-03 Completed [facility] Conjugate 13-Valent 00:00:00 Hospi true Tdap 2016-02-03 [facility] 00[facility]00 [facility] Influenza Virus 2016-02-03 Completed Universit y of Vaccine 00:00:00 [facility] Pneumococcal 13 2016-02-03 Completed Universit y of Conjugate, PCV13 00:00:00 [facility] dical (Prevnar 13) Branch TD 2016-02-03 Completed University of 00:00:00 [facility] Influenza Virus 2016-02-03 Completed Universit y of Vaccine 00:00:00 [facility] Pneumococcal 13 2016-02-03 Completed Universit y of Conjugate, PCV13 00:00:00 [facility] dical (Prevnar 13) Branch TDAP 2016-02-03 Completed University of 00:00:00 [facility] Influenza Virus 2016-02-03 Completed Universit y of Vaccine 00:00:00 [facility] Pneumococcal 13 2016-02-03 Completed Universit y of Conjugate, PCV13 00:00:00 [place] [facility] dical (Prevnar 13) Branch TDAP 2016-02-03 Completed University of 00:00:00 [facility] Influenza Virus 2016-02-03 Completed Universit y of Vaccine 00:00:00 [facility] Pneumococcal 13 2016-02-03 Completed Universit y of Conjugate, PCV13 00:00:00 [place] [facility] dical (Prevnar 13) Branch TDAP 2016-02-03 Completed University of 00:00:00 [facility] Influenza, 2015-01-05 Completed [facility] Unspecified 00:00:00 Hospital Pneumococcal 2015-01-05 Completed [facility] Conjugate 13-Valent 00:00:00 Hospi true Td 2015-01-05 Completed [facility] 00:00:00 Hospital Influenza, 2015-01-05 Completed [facility] Unspecified 00:00:00 Hospital Pneumococcal 2015-01-05 Completed [facility] Conjugate 13-Valent 00:00:00 Hospi true Td 2015-01-05 Completed [facility] 00:00:00 Hospital Influenza, 2015-01-05 Completed [facility] Unspecified 00:00:00 Hospital Pneumococcal 2015-01-05 Completed [facility] Conjugate 13-Valent 00:00:00 Hospi true Td 2015-01-05 Completed [facility] 00:00:00 Hospital Influenza, 2015-01-05 Completed [facility] Unspecified 00:00:00 Hospital Pneumococcal 2015-01-05 Completed [facility] Conjugate 13-Valent 00:00:00 Hospi true Td 2015-01-05 Completed [facility] 00:00:00 Hospital Influenza, 2015-01-05 Completed [facility] Unspecified 00:00:00 Hospital Pneumococcal 2015-01-05 Completed [facility] Conjugate 13-Valent 00:00:00 Hospi true Td 2015-01-05 Completed [facility] 00:00:00 Hospital Influenza, 2015-01-05 Completed [facility] Unspecified 00:00:00 Hospital Pneumococcal 2015-01-05 Completed [facility] Conjugate 13-Valent 00:00:00 Hospi true Td 2015-01-05 Completed [facility] 00:00:00 Hospital Influenza Virus 2015-01-05 Completed Universit y of Vaccine 00:00:00 [facility] Pneumococcal 13 2015-01-05 Completed Universit y of Conjugate, PCV13 00:00:00 [facility] dical (Prevnar 13) Branch Tetanus/Diptheria 2015-01-05 Completed Univers ity of 00:00:00 [facility] Influenza Virus 2015-01-05 Completed Universit y of Vaccine 00:00:00 [facility] Pneumococcal 13 2015-01-05 Completed Universit y of Conjugate, PCV13 00:00:00 [facility] dical (Prevnar 13) Branch Tetanus/Diptheria 2015-01-05 Completed Univers ity of 00:00:00 [facility] Influenza Virus 2015-01-05 Completed Universit y of Vaccine 00:00:00 [facility] Pneumococcal 13 2015-01-05 Completed Universit y of Conjugate, PCV13 00:00:00 [facility] dical (Prevnar 13) Branch Tetanus/Diptheria 2015-01-05 Completed Univers ity of 00:00:00 [facility] Influenza Virus 2015-01-05 Completed Universit y of Vaccine 00:00:00 [facility] Pneumococcal 13 2015-01-05 Completed Universit y of Conjugate, PCV13 00:00:00 [facility] dical (Prevnar 13) Branch Tetanus/Diptheria 2015-01-05 Completed Univers ity of 00:00:00 [facility] Influenza Virus 2015-01-05 Completed Universit y of Vaccine 00:00:00 [facility] Pneumococcal 13 2015-01-05 Completed Universit y of Conjugate, PCV13 00:00:00 [facility] dical (Prevnar 13) Branch Tetanus/Diptheria 2015-01-05 Completed Univers ity of 00:00:00 [facility] Influenza Virus 2015-01-05 Completed Universit y of Vaccine 00:00:00 [facility] Pneumococcal 13 2015-01-05 Completed Universit y of Conjugate, PCV13 00:00:00 [facility] dical (Prevnar 13) Branch Tetanus/Diptheria 2015-01-05 Completed Univers ity of 00:00:00 [facility] Influenza Virus 2015-01-05 Completed Universit y of Vaccine 00:00:00 [facility] Pneumococcal 13 2015-01-05 Completed Universit y of Conjugate, PCV13 00:00:00 [facility] dical (Prevnar 13) Branch Tetanus/Diptheria 2015-01-05 Completed Univers ity of 00:00:00 [facility] Influenza Virus 2015-01-05 Completed Universit y of Vaccine 00:00:00 [facility] Pneumococcal 13 2015-01-05 Completed Universit y of Conjugate, PCV13 00:00:00 [facility] dical (Prevnar 13) Branch Tetanus/Diptheria 2015-01-05 Completed Univers ity of 00:00:00 [facility] Influenza Virus 2015-01-05 Completed Universit y of Vaccine 00:00:00 [facility] Pneumococcal 13 2015-01-05 Completed Universit y of Conjugate, PCV13 00:00:00 [facility] dical (Prevnar 13) Branch Tetanus/Diptheria 2015-01-05 Completed Univers ity of 00:00:00 [facility] Influenza Virus 2015-01-05 Completed Universit y of Vaccine 00:00:00 [facility] Pneumococcal 13 2015-01-05 Completed Universit y of Conjugate, PCV13 00:00:00 [facility] dical (Prevnar 13) Branch Tetanus/Diptheria 2015-01-05 Completed Univers ity of 00:00:00 [facility] Influenza Virus 2015-01-05 Completed Universit y of Vaccine 00:00:00 [facility] Pneumococcal 13 2015-01-05 Completed Universit y of Conjugate, PCV13 00:00:00 [facility] dical (Prevnar 13) Branch Tetanus/Diptheria 2015-01-05 Completed Univers ity of 00:00:00 [facility] Pneumococcal 2013-05-21 Completed [facility] Conjugate 00:00:00 Hospital Tdap 2013-05-21 Completed [facility] 00:00:00 Hospital Pneumococcal 2013-05-21 Completed [facility] Conjugate 00:00:00 [facility] Tdap 2013-05-21 Completed [facility] 00:00:00 Hospital Pneumococcal 2013-05-21 Completed [facility] Conjugate 00:00:00 Hospital Tdap 2013-05-21 Completed [facility] 00:00:00 Hospital Pneumococcal 2013-05-21 Completed [facility] Conjugate 00:00:00 Hospital Tdap 2013-05-21 Completed [facility] 00:00:00 Hospital Pneumococcal 2013-05-21 Completed [facility] Conjugate 00:00:00 Hospital Tdap 2013-05-21 Completed [facility] 00:00:00 Hospital Pneumococcal 2013-05-21 Completed [facility] Conjugate 00:00:00 Hospital Tdap 2013-05-21 Completed [facility] 00:00:00 Hospital H1N1 All Forms 2009-04-20 Completed [facility] 00:00:00 Hospital H1N1 All Forms 2009-04-20 Completed [facility] 00:00:00 Hospital H1N1 All Forms 2009-04-20 Completed [facility] 00:00:00 Hospital H1N1 All Forms 2009-04-20 Completed [facility] 00:00:00 Hospital H1N1 All Forms 2009-04-20 Completed [facility] 00:00:00 Hospital H1N1 All Forms 2009-04-20 Completed [facility] 00:00:00 Hospital Vital Signs Vital Name Observation Time Observation Value Comments Source HEIGHT 2022-01-14 10:00:00 162.6 cm WEIGHT 2022-01-14 10:00:00 68.04 kg HEIGHT 2022-01-14 10:00:00 162.6 cm WEIGHT 2022-01-14 10:00:00 68.04 kg Systolic blood 2022-01-18 12:00:00 117 mm[Hg] [facility] Diastolic blood 2022-01-18 12:00:00 51 mm[Hg] [facility] Heart rate 2022-01-18 12:00:00 80 /min [facility] Body temperature 2022-01-18 12:00:00 36.78 [facility] Respiratory rate 2022-01-18 12:00:00 18 /min [facility] Oxygen saturation in 2022-01-18 12:00:00 100 /min [facility] Arterial blood by Medical Ce nter Pulse oximetry Body height 2022-01-14 10:00:00 162.6 cm [facility] Body weight 2022-01-14 10:00:00 68.04 kg [facility] BMI 2022-01-14 10:00:00 25.75 kg/m2 [facility] Systolic blood 2021-09-16 23:24:00 145 mm[Hg] [facility] Di[facility] blood 2021-09-16 23:24:00 78 mm[Hg] [facility] pressure Heart rate 2021-09-16 23:00:00 80 /min [facility] Respiratory rate 2021-09-16 23:00:00 19 /min [facility] Body temperature 2021-09-16 19:25:00 36.28 [facility] Oxygen saturation in 2021-09-16 15:57:32 98 /min [facility] Arterial blood by Pulse oximetry Body height 2021-09-07 12:58:00 162.6 cm [facility] Body weight 2021-09-07 12:58:00 67.3 kg [facility] BMI 2021-09-07 12:58:00 25.47 kg/m2 [facility] Procedures Procedure Date / Time Performing Source Performed Clinician EXTERNAL PROVIDER RECORDS 2022-07-05 Doctor [facility] 06:01:00 Unassigned, No [facility] EXTERNAL PROVIDER RECORDS 2022-04-01 Doctor Univer sity of 06:01:00 Unassigned, No [facility] POCT-GLUCOSE METER 2022-01-[address] [facility] 12:10:00 [facility] HEMODIALYSIS INPATIENT 2022-01-[address] [facility] 07[facility]52:23 [facility] BASIC METABOLIC PANEL 2022-01-18 [facility]ji[facility] 06:09:00 [facility] POCT-GLUCOSE METER 2022-01-17 Reji, Mauro [facility] 19:46:00 [facility] Center POCT-GLUCOSE METER 2022-01-17 Reji, Mauro [facility] 17:06:00 [facility] Center POCT-GLUCOSE METER 2022-01-17 Reji, Mauro [facility] 12:13:00 [facility] Center POCT-GLUCOSE METER 2022-01-17 Reji, Mauro [facility] 08:29:00 [facility] BASIC METABOLIC PANEL 2022-01-17 [facility]ji, [facility] 03:23:00 [facility] Center POCT-GLUCOSE METER 2022-01-16 Reji, Mauro [facility] 20:16:00 Medical Center POCT-GLUCOSE METER 2022-01-16 Reji, Mauro [facility] 15:46:00 [facility] Center POCT-GLUCOSE METER 2022-01-16 Reji, Mauro [facility] 11:46:00 [facility] POCT-GLUCOSE METER 2022-01-16 Reji, Mauro [facility] 07:47:00 [facility] POCT-GLUCOSE METER 2022-01-15 Reji, Mauro [facility] 20:13:00 [facility] POCT-GLUCOSE METER 2022-01-15 Reji, Mauro [facility] 17:54:00 [facility] POCT-GLUCOSE METER 2022-01-15 [facility], Mauro [facility] 12:31:00 [facility] HEMODIALYSIS INPATIENT 2022-01-[address] [facility] 10:06:42 [facility] POCT-GLUCOSE METER 2022-01-15 [facility], Mauro [facility] 07:32:00 [facility] BASIC METABOLIC PANEL 2022-01-15 [facility] 03:58:00 [facility] POCT-GLUCOSE METER 2022-01-14 [facility], Mauro [facility] 20:42:00 [facility] POCT-GLUCOSE METER 2022-01-14 [facility], Mauro [facility] 15:38:00 [facility] SARS-COV2/RT-PCR ([facility]) 2022-01-14 [facility], Surjoannae r [facility] 14:57:00 [facility] XR CHEST 1 VIEW PORTABLE / BEDSIDE 2022-01-14 [facility], Surinde r [facility] 14:38:00 [facility] POCT-GLUCOSE METER 2022-01-14 [facility], Mauro [facility] 12:02:00 [facility] IR CENTRAL VENOUS CATHETER 2022-01-14 [facility], [facility] PLACEMENT (JUGULAR OR FEMORAL) 11:14:00 [facility] POCT-GLUCOSE METER 2022-01-14 [facility], Mauro [facility] 08:24:00 [facility] CBC (HEMOGRAM ONLY) 2022-01-14 [facility], Mauro [facility] 04:11:00 [facility] BASIC METABOLIC PANEL 2022-01-14 [facility], [facility] 04:11:00 [facility] POCT-GLUCOSE METER 2022-01-13 [facility], Mauro [facility] 19:39:00 [facility] POCT-GLUCOSE METER 2022-01-13 [facility], Mauro [facility] 16:37:00 [facility] POCT-GLUCOSE METER 2022-01-13 [facility], Mauro [facility] 13:51:00 [facility] BLOOD GAS, ARTERIAL 2022-01-13 [facility], Mauro [facility] 08:41:00 [facility] POCT-GLUCOSE METER 2022-01-13 Reji, Mauro [facility] 08:25:00 [facility] CT BRAIN WITHOUT IV CONTRAST 2022-01-13 Erji, Mauro [facility] 07:50:00 [facility] COMPREHENSIVE METABOLIC PANEL 2022-01-13 Reji, [facility]uro [facility] 07:29:00 [facility] TROPONIN I 2022-01-13 Reji, Mauro [facility] 07:29:00 [facility] TSH/FREE T4 IF INDICATED 2022-01-13 Reji, Mauro [facility] 07:29:00 [facility] CBC W/PLT COUNT & AUTO 2022-01-13 Reji, [facility]uro [facility] DIFFERENTIAL 07:29:00 [facility] CBC W/PLT COUNT & AUTO 2022-01-13 [facility], Mauro [facility] DIFFERENTIAL 07:29:00 [facility] POCT-GLUCOSE METER 2022-01-13 Reji, Mauro [facility] 07:04:00 [facility] POCT-GLUCOSE METER 2022-01-13 [facility], Mauro [facility] 06:21:00 [facility] POCT-GLUCOSE METER 2022-01-12 Reji, Mauro [facility] 20:53:00 [facility] POCT-GLUCOSE METER 2022-01-12 Reji, Mauro [facility] 19:20:00 [facility] POCT-GLUCOSE METER 2022-01-12 Reji, Mauro [facility] 18:50:00 [facility] POCT-GLUCOSE METER 2022-01-12 [facility], Mauro [facility] 17:58:00 [facility] IR TUNNELED CATHETER INSERTION 2022-01-[address] [facility] 16:30:00 [facility] POCT-GLUCOSE METER 2022-01-12 Reji, Mauro [facility] 12:08:00 [facility] POCT-GLUCOSE METER 2022-01-12 [facility] 08:49:00 [facility] CBC W/PLT COUNT & AUTO 2022-01-12 [facility], Annalee Montoya [facility] DIFFERENTIAL 05:39:00 [facility] BASIC METABOLIC PANEL 2022-01-12 [facility], Annalee Montoya [facility] 05:39:00 [facility] MAGNESIUM 2022-01-12 Shieh, Annalee Montoya [facility] 05:39:00 [facility] PHOSPHORUS 2022-01-12 Shieh, Annalee Montoya [facility] 05:39:00 [facility] PROTHROMBIN TIME/INR 2022-01-12 Shieh, [facility]alee [facility] 05:39:00 [facility] APTT 2022-01-12 Shieh, Annalee Montoya [facility] 05:39:00 [facility] CBC W/PLT COUNT & AUTO 2022-01-12 Shieh, Annalee Montoya [facility] DIFFERENTIAL 05:39:00 [facility] (MANUAL DIFFERENTIAL) 2022-01-12 [facility] 05:39:00 [facility] POCT-GLUCOSE METER 2022-01-11 Shieh, Annalee Montoya [facility] 19:49:00 [facility] POCT-GLUCOSE METER 2022-01-11 [facility] Annalee Montoya [facility] 17:57:00 [facility] POCT-GLUCOSE METER 2022-01-11 [facility], Annalee Montoya [facility] 12:37:00 [facility] HEMODIALYSIS INPATIENT 2022-01-[address] [facility] 12:29:37 [facility] POCT-GLUCOSE METER 2022-01-11 [facility], Annalee Montoya [facility] 07:49:00 [facility] POCT-GLUCOSE METER 2022-01-10 [facility], Annalee Montoya [facility] 21:16:00 [facility] POCT-GLUCOSE METER 2022-01-10 [facility], Annalee Montoya [facility] 15:24:00 [facility] IR TUNNEL CATHETER EXCHANGE 2022-01-[address] [facility] 11:23:00 [facility] POCT-GLUCOSE METER 2022-01-10 [facility], Annalee Montoya [facility] 11:21:00 [facility] CBC W/PLT COUNT & AUTO 2022-01-10 Shieh, Annalee Montoya [facility] DIFFERENTIAL 04:13:00 [facility] BASIC METABOLIC PANEL 2022-01-10 Shieh, Annalee Montoya [facility] 04:13:00 [facility] MAGNESIUM 2022-01-10 Shieh, Annalee Montoya [facility] 04:13:00 [facility] PHOSPHORUS 2022-01-10 Shieh, Annalee C [facility] 04:13:00 [facility] Center APTT 2022-01-[address] [facility] 04:13:00 [facility] Center CBC W/PLT COUNT & AUTO 2022-01-10 Shieh, Annalee Montoya [facility] DIFFERENTIAL 04:13:00 [facility] Center POCT-GLUCOSE METER 2022-01-09 Shieh, Annalee Jan [facility] 21:15:00 [facility] Center APTT 2022-01-09 Shieh, Annalee Jan [facility] 19:08:00 [facility] POCT-GLUCOSE METER 2022-01-09 Shieh, Annalee Jan [facility] 17:02:00 [facility] POCT-GLUCOSE METER 2022-01-09 Shieh, Annalee Jan [facility] 11:22:00 [facility] APTT 2022-01-09 Shieh, Annalee Jan [facility] 09:44:00 [facility] POCT-GLUCOSE METER 2022-01-09 Shieh, Annalee Jan [facility] 07:19:00 [facility] POCT-GLUCOSE METER 2022-01-09 [facility], Annalee Jan [facility] 05:05:00 [facility] CBC W/PLT COUNT & AUTO 2022-01-09 Shieh, Annalee Jan [facility] DIFFERENTIAL 04:57:00 [facility] BASIC METABOLIC PANEL 2022-01-09 Shieh, Annalee Jan [facility] 04:57:00 [facility] MAGNESIUM 2022-01-09 Shieh, Annalee Jan [facility] 04:57:00 [facility] Center PHOSPHORUS 2022-01-09 Shieh, Annalee Jan [facility] 04:57:00 [facility] CBC W/PLT COUNT & AUTO 2022-01-09 Shieh, Annalee Jan [facility] DIFFERENTIAL 04:57:00 [facility] APTT 2022-01-09 Shieh, Annalee Jan [facility] 00:34:00 [facility] POCT-GLUCOSE METER 2022-01-08 Shieh, Annalee Jan [facility] 16:49:00 [facility] APTT 2022-01-08 Shieh, Annalee Montoya [facility] 16:13:00 [facility] HEMODIALYSIS INPATIENT 2022-01-[address] [facility] 15:47:52 [facility] HEPATITIS B SURFACE ANTIGEN 2022-01-[address] [facility] 15:40:00 [facility] HEPATITIS B SURFACE ANTIBODY 2022-01-[address] [facility] 15:40:00 [facility] POCT-GLUCOSE METER 2022-01-[address] [facility] 12:18:00 [facility] POCT-GLUCOSE METER 2022-01-08 Shiartur, Annalee C [facility] 07:59:00 [facility] CBC W/PLT COUNT & AUTO 2022-01-08 Shieh, Annalee Montoya [facility] DIFFERENTIAL 05:27:00 [facility] BASIC METABOLIC PANEL 2022-01-08 Shieh, Annalee C [facility] 05:27:00 [facility] MAGNESIUM 2022-01-08 [facility] 05:27:00 [facility] PHOSPHORUS 2022-01-08 [facility] C [facility] 05:27:00 [facility] HEMOGLOBIN A1C 2022-01-08 [facility] Ann[facility]e Montoya [facility] 05:27:00 [facility] CBC W/PLT COUNT & AUTO 2022-01-08 [facility], Annalee Montoya [facility] DIFFERENTIAL 05:27:00 [facility] APTT 2022-01-[address] [facility] 05:26:00 [facility] POCT-GLUCOSE METER 2022-01-07 Maida, Annalee C [facility] 21:01:00 [facility] APTT 2022-01-[address] [facility] 21:00:00 [facility] CARDIAC CATH REPORT - SCAN 2022-01-07 Provider, Default [facility] 00:00:00 Scanning [facility] EKG-SCANNED 2022-01-07 Provider, Default [facility] 00:00:00 Scanning [facility] HEMODIALYSIS 2021-09-16 Marycarmen Matson 20:36:27 [facility] POC GLUCOSE 2021-09-16 Corrine Osuna 15:59:00 [facility] POC GLUCOSE 2021-09-16 Corrine Osuna 11:10:00 [facility] POC GLUCOSE 2021-09-16 Corrine Osuna 01:24:00 Hospital POC GLUCOSE 2021-09-15 Emiliano-KaitlynqCorrine 20:54:00 Hospital POC GLUCOSE 2021-09-15 Emiliano-KaitlynqCorrine 16:27:00 Hospital POC GLUCOSE 2021-09-15 Emiliano-KaitlynqCorrine 12:04:00 Hospital POC GLUCOSE 2021-09-15 Emiliano-KaitlynqCorrine 11:16:00 Hospital POC GLUCOSE 2021-09-15 Emiliano-KaitlynqCorrine 01:21:00 Hospital POC GLUCOSE 2021-09-14 Al-KaitlynqCorrine 21:57:00 Hospital POC GLUCOSE 2021-09-14 Emiliano-Corrine Dozier 17:17:00 [facility] IR TUNNELED DIALYSIS CATHETER 2021-09-14 Michoacano Owens thodist REPLACEMENT/EXCHANGE 13:59:03 [facility] HEMODIALYSIS 2021-09-14 Marycarmen Matson 12:42:40 [facility] POC GLUCOSE 2021-09-14 Corrine Osuna 11:19:00 [facility] BASIC METABOLIC PANEL 2021-09-14 FlorenceMarycarmen jauregui 09:34:00 [facility] ESTIMATED GFR 2021-09-14 Marycarmen Matson 09:34:00 [facility] ZZCOVID-19 ANTI-SPIKE IGG ANTIBODY 2021-09-14 Michoacano Owens TITER 03:25:00 [facility] TYPE AND SCREEN 2021-09-14 Michoacano Owens 03:25:00 [facility] ZZCOVID-19 SEROLOGY PATIENT 2021-09-14 Michoacano Owens odist SURVEILLANCE 03:25:00 [facility] POC GLUCOSE 2021-09-14 Corrine Osuna 01:33:00 Hospital POC GLUCOSE 2021-09-13 Emiliano-Corrine Dozier 23:43:00 Hospital SURGICAL PATHOLOGY REQUEST 2021-09-13 Corrine Osuna dist 20:11:00 Hospital ESOPHAGOGASTRODUODENOSCOPY (EGD) 2021-09-13 Marycarmen Lopez 19:58:00 [facility] POC GLUCOSE 2021-09-13 Al-Lahiq, Corrine Gnosticist 17:23:00 Hospital POC GLUCOSE 2021-09-13 Al-Lahiq, Corrine [facility] 11:26:00 Hospital BASIC METABOLIC PANEL 2021-09-13 Dano Gnosticist 10:25:00 [facility] CBC WITH PLATELET AND DIFFERENTIAL 2021-09-13 Al-Lahiq, Whit sanchez [facility] 10:25:00 Hospital PARTIAL THROMBOPLASTIN TIME (PTT) 2021-09-13 Al-Lahiq, Corrine Gnostic[facility] 10:25:00 Hospital ESTIMATED GFR 2021-09-13 Katelynn Matsonist 10:25:00 [facility] PROTHROMBIN TIME WITH INR 2021-09-13 Emiliano-Tasia, Corrine Method ist 10:25:00 Hospital POC GLUCOSE 2021-09-13 Al-Lahiq, Corrine Gnosticist 00:48:00 Hospital ECG 12-LEAD 2021-09-12 Katelynn Lopezist 23:22:14 [facility] POC GLUCOSE 2021-09-12 Al-Lahiq, Corrine Gnosticist 22:53:00 Hospital POC GLUCOSE 2021-09-12 Al-Lahiq, Corrine Gnosticist 21:49:00 Hospital POC GLUCOSE 2021-09-12 Al-Lahiq, Corrine Gnosticist 16:57:00 Hospital POC GLUCOSE 2021-09-12 Al-Lahiq, Corrine Gnosticist 11:26:00 Hospital POC GLUCOSE 2021-09-12 Al-Lahiq, Corrine Gnosticist 11:01:00 Hospital BASIC METABOLIC PANEL 2021-09-12 Marycarmen Matson 09:15:00 [facility] ESTIMATED GFR 2021-09-12 Marycarmen Matson 09:15:00 [facility] HEMODIALYSIS 2021-09-12 Marycarmen Matson 02:06:24 [facility] POC GLUCOSE 2021-09-12 Al-LahiqCorrine Gnosticist 01:05:00 Hospital POC GLUCOSE 2021-09-11 Al-Corrine Dozier 21:53:00 Hospital POC GLUCOSE 2021-09-11 Corrine Osuna 16:41:00 Hospital HEMODIALYSIS 2021-09-11 Marycarmen Matosn 15:53:24 [facility] POC GLUCOSE 2021-09-11 Corrine Osuna 11:14:00 [place] [id number] ANTI-SPIKE IGG ANTIBODY 2021-09-11 Whit Osuna TITER 09:40:00 Hospital BASIC METABOLIC PANEL 2021-09-11 Katelynn Matsonist 09:40:00 [facility] HEMOGLOBIN A1C 2021-09-11 Corrine Osuna 09:40:00 [place] [id number] SEROLOGY PATIENT 2021-09-11 Corrine Osuna Meth oddiya SURVEILLANCE 09:40:00 Hospital CBC WITH PLATELET AND DIFFERENTIAL 2021-09-11 Whit Osunaist 09:40:00 Hospital ESTIMATED GFR 2021-09-11 Marycarmen Matson 09:40:00 [facility] POC GLUCOSE 2021-09-11 Corrine Osuna 00:39:00 Hospital POC GLUCOSE 2021-09-10 Corrine Osuna 21:14:00 Hospital CORTISOL LEVEL, AM 2021-09-10 Corrine Osuna 16:58:00 Hospital POC GLUCOSE 2021-09-10 Emiliano-Corrine Dozier 15:59:00 Hospital POC GLUCOSE 2021-09-10 Emiliano-Corrine Dozier 11:26:00 Hospital BASIC METABOLIC PANEL 2021-09-10 Marycarmen Matson 09:55:00 [facility] ESTIMATED GFR 2021-09-10 Marycarmen Matson 09:55:00 [facility] POC GLUCOSE 2021-09-10 Emiliano-Corrine Dozier 00:18:00 Hospital POC GLUCOSE 2021-09-09 Emiliano-KaitlynqCorrine 21:28:00 Hospital POC GLUCOSE 2021-09-09 Corrine Osuna 16:28:[address] HEAD WO CONTRAST 2021-09-09 Corrine Osuna 14:48:37 Hospital HEMODIALYSIS 2021-09-09 Marycarmen Matson 14:08:47 [facility] POC GLUCOSE 2021-09-09 Corrine Osuna 11:30:00 Hospital BASIC METABOLIC PANEL 2021-09-09 Marycarmen Matson 10:45:00 [facility] ESTIMATED GFR 2021-09-09 Marycarmen Matson 10:45:00 [facility] POC GLUCOSE 2021-09-09 Corrine Osuna 01:10:00 Hospital POC GLUCOSE 2021-09-08 Emiliano-Corrine Dozier 21:16:00 Hospital POC GLUCOSE 2021-09-08 Corrine Osuna 16:10:00 Hospital BASIC METABOLIC PANEL 2021-09-08 Haja Fraser 09:27:00 Hospital MAGNESIUM LEVEL 2021-09-08 Haja Fraser 09:27:00 Hospital ESTIMATED GFR 2021-09-08 Haja Fraser 09:27:00 Hospital GASTROINTESTINAL PATHOGENS PANEL, 2021-09-08 Kimmy Cronin PCR 02:15:00 Hospital POC GLUCOSE 2021-09-08 Emiliano-Corrine Dozier 01:30:00 Hospital BASIC METABOLIC PANEL 2021-09-07 Corrine Osuna 18:00:00 Hospital ESTIMATED GFR 2021-09-07 Emiliano-Corrine Dozier 18:00:00 Hospital HEPATITIS B SURFACE ANTIGEN 2021-09-07 Andrea Matson odist 18:00:00 [facility] HEPATITIS B SURFACE AB, 2021-09-07 Stephen Matson t QUANTITATIVE 18:00:00 [facility] XR CHEST 1 VW PORTABLE 2021-09-07 Corrine Osuna 16:47:43 Hospital XR ABDOMEN 1 VW 2021-09-07 Corrine Osuna 16:47:22 Hospital HEMODIALYSIS 2021-09-07 Haja Fraser 16:16:15 Hospital POC GLUCOSE 2021-09-07 Corrine Osuna 11:07:00 Hospital TROPONIN T 2021-09-07 Trinidad Menard 03:35:00 [facility] TROPONIN T 2021-09-07 Marley Cronin 00:00:00 [...] Hospital POC GLUCOSE 2021-08-13 Marycarmen Nuñez 16:22:00 [facility] POC GLUCOSE 2021-08-13 Marycarmen Nuñez 11:17:00 [facility] XR CHEST 1 VW PORTABLE 2021-08-13 Josemanuel Vences 11:13:27 Hospital BASIC METABOLIC PANEL 2021-08-13 Josemanuel Vences 10:26:00 Hospital ESTIMATED GFR 2021-08-13 Josemanuel Vences 10:26:00 Hospital POC GLUCOSE 2021-08-13 Marycarmen Nuñez 00:38:00 [facility] HEMODIALYSIS 2021-08-13 Josemanuel Vences 00:09:24 Hospital [place] AN ELECTIVE ENDOTRACHEAL AIRWAY 2021-08-12 Leodan Rebolledo 23:45:00 Hospital INSERTION, CATHETER, DIALYSIS, 2021-08-12 Ru, Josemanuel M ethodist PERITONEAL, LAPAROSCOPIC 23:10:00 Hospita l POC GLUCOSE 2021-08-12 Savannah Gnosticist 20:36:00 [facility] COVID-19 QUALITATIVE RT-PCR 2021-08-12 Ti Post 17:35:00 [facility] POC GLUCOSE 2021-08-12 Kohlnhofer, Gnosticist 15:58:00 [facility] POC GLUCOSE 2021-08-12 Kohlnhofer, Gnosticist 11:07:00 [facility] ECG 12-LEAD 2021-08-12 Harry Gnosticist 11:02:39 [facility] BASIC METABOLIC PANEL 2021-08-12 Marycarmen Matson 09:47:00 [facility] ESTIMATED GFR 2021-08-12 FlorenceaharkMarycarmen dubon 09:47:00 [facility] POC GLUCOSE 2021-08-12 Kohlnhohafsa Gnosticist 00:51:00 [facility] POC GLUCOSE 2021-08-11 Kohlnhofer, Gnosticist 20:44:00 [facility] POC GLUCOSE 2021-08-11 Kohlnhofer, Gnosticist 16:14:00 [facility] POC GLUCOSE 2021-08-11 Kohlnhofer, Gnosticist 11:06:00 [facility] POC GLUCOSE 2021-08-11 Kohlnhofer, Gnosticist 00:30:00 [facility] POC GLUCOSE 2021-08-10 Kohlnhofer, Gnosticist 20:48:00 [facility] POC GLUCOSE 2021-08-10 Kohlnhofer, Gnosticist 11:07:00 [facility] POC GLUCOSE 2021-08-10 Kohlnhofer, Gnosticist 00:46:00 [facility] POC GLUCOSE 2021-08-09 Kohlnhofer, Gnosticist 21:37:00 [facility] HEMODIALYSIS 2021-08-09 Marycarmen Matson 17:13:01 [facility] POC GLUCOSE 2021-08-09 Kohlnhofer, Gnosticist 16:55:00 [facility] POC GLUCOSE 2021-08-09 Tammy Dumont 11:19:00 [facility] BASIC METABOLIC PANEL 2021-08-09 FlorenceMarycarmen jauregui 10:52:00 [facility] ESTIMATED GFR 2021-08-09 Marycarmen Matson 10:52:00 [facility] PROCALCITONIN 2021-08-09 Hyacinth Guthrie 02:51:00 [facility] POC GLUCOSE 2021-08-09 Tammy Dumont 00:26:00 [facility] POC GLUCOSE 2021-08-08 Tammy Dumont 21:18:00 [facility] POC GLUCOSE 2021-08-08 Tammy Dumont 19:34:00 [facility] POC GLUCOSE 2021-08-08 Tammy Dumont 10:58:00 [facility] DIGOXIN LEVEL 2021-08-08 Ritu Graves 10:46:00 [facility] BASIC METABOLIC PANEL 2021-08-08 Marycarmen Matson 10:46:00 [facility] ESTIMATED GFR 2021-08-08 Marycarmen Matson 10:46:00 [facility] POC GLUCOSE 2021-08-08 Tammy Dumont 02:06:00 [facility] POC GLUCOSE 2021-08-07 Tammy Dumont 23:09:00 [facility] HEMODIALYSIS 2021-08-07 Marycarmen Matson 20:13:07 [facility] POC GLUCOSE 2021-08-07 Tammy Dumont 15:50:00 [facility] POC GLUCOSE 2021-08-07 Tammy Dumont 11:19:00 [facility] CBC WITH PLATELET AND DIFFERENTIAL 2021-08-07 Steven Lucero 11:15:00 [facility] COMPREHENSIVE METABOLIC PANEL 2021-08-07 Rupali Lucero 11:15:00 [facility] ESTIMATED GFR 2021-08-07 Rupali Lucero 11:15:00 [facility] POC GLUCOSE 2021-08-07 Tammy Dumont 00:58:00 [facility] HEMODIALYSIS 2021-08-06 Marycarmen Matson 21:36:17 [facility] POC GLUCOSE 2021-08-06 Tasneem Ellison 21:21:00 Hospital POC GLUCOSE 2021-08-06 Molexie Tasav Conroy 15:39:00 Hospital BASIC METABOLIC PANEL 2021-08-06 FlorenceMarycarmen jauregui 11:19:00 [facility] ESTIMATED GFR 2021-08-06 Marycarmen Matson 11:19:00 [facility] POC GLUCOSE 2021-08-06 MougourisTasneem 09:09:00 Hospital POC GLUCOSE 2021-08-06 Mougouris, Tasneem Conroy 04:44:00 Hospital HEMODIALYSIS 2021-08-06 FlorencetrihealthMarycarmen dubon 02:34:43 [facility] POC GLUCOSE 2021-08-06 Mougouris, Tasneem Conroy 01:09:00 Hospital XR CHEST 1 VW PORTABLE 2021-08-05 Joanna Leiva 23:40:00 Hospital POC GLUCOSE 2021-08-05 Mougouris, Tasneem Conroy 21:24:00 Hospital [place] < 1 HOUR 2021-08-05 Joanna Leiva 21:05:00 Hospital [place] AN ELECTIVE SUPRAGLOTTIC AIRWAY 2021-08-05 Grazyna Martinez 20:19:00 [facility] INSERTION, CATHETER, CENTRAL 2021-08-05 Joanna Leiva VENOUS, TUNNELED, FOR HEMODIALYSIS 20:13:00 Hospital TYPE AND SCREEN 2021-08-05 Ti Post 20:09:00 Hospital POC GLUCOSE 2021-08-05 MougottoisTasneem 15:43:00 Hospital ECG 12-LEAD 2021-08-05 Ti Post 14:07:10 Hospital POC GLUCOSE 2021-08-05 Marycarmen Ayers 11:25:00 [facility] XR CHEST 1 VW PORTABLE 2021-08-05 Ti Post t 11:17:10 Hospital CBC WITH PLATELET AND DIFFERENTIAL 2021-08-05 Steven Lucero 10:45:00 [facility] BASIC METABOLIC PANEL 2021-08-05 Rupali Lucero 10:45:00 [facility] ESTIMATED GFR 2021-08-05 Rupali Lucero 10:45:00 [facility] POC GLUCOSE 2021-08-05 Marycarmen Ayers 00:57:00 [facility] POC GLUCOSE 2021-08-04 Marycarmen Ayers 16:51:00 [facility] XR ABDOMEN 1 VW 2021-08-04 Rupali Lucero 16:40:00 [facility] POC GLUCOSE 2021-08-04 Tammy Dumont 11:24:00 [facility] HC COMPLETE BLD COUNT W/AUTO DIFF 2021-08-04 Tammy Dumont 11:06:00 [facility] BASIC METABOLIC PANEL 2021-08-04 Marycarmen Matson 11:06:00 [facility] MAGNESIUM LEVEL 2021-08-04 Rupali Lucero 11:06:00 [facility] PHOSPHORUS LEVEL 2021-08-04 Rupali Lucero 11:06:00 [facility] ESTIMATED GFR 2021-08-04 Marycarmen Matson 11:06:00 [facility] POC GLUCOSE 2021-08-04 Tammy Dumont 00:57:00 [facility] POC GLUCOSE 2021-08-03 Tammy Dumont 21:36:00 [facility] HEPATITIS B CORE ANTIBODY TOTAL 2021-08-03 Marycarmen Matson 17:42:00 [facility] HEPATITIS B SURFACE AB, 2021-08-03 Stephen Matson QUANTITATIVE 17:42:00 [facility] HEPATITIS C ANTIBODY 2021-08-03 Marycarmen Matson 17:42:00 [facility] HEPATITIS B SURFACE ANTIGEN 2021-08-03 Andrea Matson 17:42:00 [facility] POC GLUCOSE 2021-08-03 Tammy Dumotn 16:38:00 [facility] POC GLUCOSE 2021-08-03 Tammy Dumont 11:29:00 [facility] HC COMPLETE BLD COUNT W/AUTO DIFF 2021-08-03 Ender Lucero 11:03:00 [facility] BASIC METABOLIC PANEL 2021-08-03 Rupali Lucero 11:03:00 [facility] PHOSPHORUS LEVEL 2021-08-03 Marycarmen Matson 11:03:00 [facility] PARATHYROID HORMONE 2021-08-03 José Espino 11:03:00 [facility] ESTIMATED GFR 2021-08-03 Rupali Lucero 11:03:00 [facility] POC GLUCOSE 2021-08-03 Tammy Dumont 00:22:00 [facility] CV STRESS TEST NUCLEAR CARDIO 2021-08-02 Me Harry thodist 21:45:00 [facility] NM MYOCARDIAL PERFUSION REST 2021-08-02 Met ada Mcdonald STRESS 1 DAY 21:45:00 [facility] POC GLUCOSE 2021-08-02 Tammy Dumont 21:08:00 [facility] POC GLUCOSE 2021-08-02 Tammy Dumont 16:34:00 [facility] POC GLUCOSE 2021-08-02 Tammy Dumont 11:19:00 [facility] HC COMPLETE BLD COUNT W/AUTO DIFF 2021-08-02 Ender Lucero 09:43:00 [facility] BASIC METABOLIC PANEL 2021-08-02 Rupali Lucero 09:43:00 [facility] MAGNESIUM LEVEL 2021-08-02 Rupali Lucero 09:43:00 [facility] ESTIMATED GFR 2021-08-02 Rupali Lucero 09:43:00 [facility] POC GLUCOSE 2021-08-02 Tammy Dumont 00:15:00 [facility] POC GLUCOSE 2021-08-01 Tammy Dumont 20:02:00 [facility] POC GLUCOSE 2021-08-01 Tammy Dumont 16:16:00 [facility] POC GLUCOSE 2021-08-01 Tammy Dumont 11:16:00 [facility] BASIC METABOLIC PANEL 2021-08-01 Theresa Ramos t 10:56:00 Hospital MAGNESIUM LEVEL 2021-08-01 Theresa Ramos 10:56:00 Hospital PHOSPHORUS LEVEL 2021-08-01 Theresa Ramos 10:56:00 Hospital HC COMPLETE BLD COUNT W/AUTO DIFF 2021-08-01 Ender Lcuero 10:56:00 [facility] ESTIMATED GFR 2021-08-01 Theresa Ramos 10:56:00 Hospital ECG 12-LEAD 2021-08-01 Marycarmen Mcdonald 08:03:48 [facility] POC GLUCOSE 2021-08-01 Tammy Dumont 01:35:00 [facility] TTE COMPLETE, WO CONTRAST, W 2021-07-31 Harry, hodist DOPPLER ([id number]) 23:38:00 [facility] POC GLUCOSE 2021-07-31 Tammy Dumont 22:40:00 [facility] COVID-19 QUALITATIVE RT-PCR 2021-07-31 Rupali Lucero Met ryist 17:14:00 [facility] POC GLUCOSE 2021-07-31 Tammy Dumont 17:07:00 [facility] POC GLUCOSE 2021-07-31 Tammy Dumont 12:13:00 [facility] B NATRIURETIC PEPTIDE 2021-07-31 José Espino 11:34:00 [facility] BASIC METABOLIC PANEL 2021-07-31 José Espino 11:34:00 [facility] HC COMPLETE BLD COUNT W/AUTO DIFF 2021-07-31 José Espino 11:34:00 [facility] TROPONIN T 2021-07-31 José Espino 11:34:00 [facility] ESTIMATED GFR 2021-07-31 José Espino 11:34:00 [facility] Plan of Care Planned Activity Planned [...] (12+)] Future Scheduled 2022-09-27 DIABETIC FOOT EXAM [facility] Test 12:29:06 [code = DIABETIC FOOT EXAM] Future Scheduled 2022-09-27 COLONOSCOPY SCREENING [facility] Test 12:29:06 [code = COLONOSCOPY SCREENING] Future Scheduled 2022-09-27 DIABETES: RETINAL EYE [facility] Test 12:29:06 EXAM [code = DIABETES: RETINAL EYE EXAM] Future Scheduled 2022-09-27 SHINGLES VACCINES ([address] [facility] Test 12:29:06 of 2) [code = SHINGLES VACCINES (1 of 2)] Future Scheduled 2022-09-27 BREAST CANCER [facility] Test 12:29:06 SCREENING [code = BREAST CANCER SCREENING] Future Scheduled 2022-09-27 COVID-19 VACCINE (4 - [facility] Test 12:29:06 Booster for Pfizer series) [code = COVID-19 VACCINE (4 - Booster for Pfizer series)] Future Scheduled 2022-09-27 INFLUENZA VACCINE Method [facility] Test 12:29:06 [code = INFLUENZA VACCINE] Future Scheduled 2022-09-27 DIABETIC FOOT EXAM [facility] Test 12:29:06 [code = DIABETIC FOOT EXAM] Future Scheduled 2022-09-27 COLONOSCOPY SCREENING [facility] Test 12:29:06 [code = COLONOSCOPY SCREENING] Future Scheduled 2022-09-27 DIABETES: RETINAL EYE [facility] Test 12:29:06 EXAM [code = DIABETES: RETINAL EYE EXAM] Future Scheduled 2022-09-27 SHINGLES VACCINES ([address] [facility] Test 12:29:06 of 2) [code = SHINGLES VACCINES (1 of 2)] Future Scheduled 2022-09-27 BREAST CANCER [facility] Test 12:29:06 SCREENING [code = BREAST CANCER SCREENING] Future Scheduled 2022-09-27 COVID-19 VACCINE (4 - [facility] Test 12:29:06 Booster for Pfizer series) [code = COVID-19 VACCINE (4 - Booster for Pfizer series)] Future Scheduled 2022-09-27 INFLUENZA VACCINE [facility] Test 12:29:06 [code = INFLUENZA VACCINE] Future Scheduled 2022-09-27 DIABETIC FOOT EXAM [facility] Test 12:29:06 [code = DIABETIC FOOT EXAM] Future Scheduled 2022-09-27 COLONOSCOPY SCREENING [facility] Test 12:29:06 [code = COLONOSCOPY SCREENING] Future Scheduled 2022-09-27 DIABETES: RETINAL EYE [facility] Test 12:29:06 EXAM [code = DIABETES: RETINAL EYE EXAM] Future Scheduled 2022-09-27 SHINGLES VACCINES ([address] [facility] Test 12:29:06 of 2) [code = SHINGLES VACCINES (1 of 2)] Future Scheduled 2022-09-27 BREAST CANCER [facility] Test 12:29:06 SCREENING [code = BREAST CANCER SCREENING] Future Scheduled 2022-09-27 COVID-19 VACCINE (4 - [facility] Test 12:29:06 Booster for Pfizer series) [code = COVID-19 VACCINE (4 - Booster for Pfizer series)] Future Scheduled 2022-09-27 INFLUENZA VACCINE Method [facility] Test 12:29:06 [code = INFLUENZA VACCINE] Future Scheduled 2022-08-20 DIABETIC FOOT EXAM [facility] Test 03:10:19 [code = DIABETIC FOOT EXAM] Future Scheduled 2022-08-20 COLONOSCOPY SCREENING [facility] Test 03:10:19 [code = COLONOSCOPY SCREENING] Future Scheduled 2022-08-20 DIABETES: RETINAL EYE [facility] Test 03:10:19 EXAM [code = DIABETES: RETINAL EYE EXAM] Future Scheduled 2022-08-20 SHINGLES VACCINES (1 Met [facility] Test 03:10:19 of 2) [code = SHINGLES VACCINES (1 of 2)] Future Scheduled 2022-08-20 BREAST CANCER [facility] Test 03:10:19 SCREENING [code = BREAST CANCER SCREENING] Future Scheduled 2022-08-20 COVID-19 VACCINE (4 - [facility] Test 03:10:19 Booster for Pfizer series) [code = COVID-19 VACCINE (4 - Booster for Pfizer series)] Future Scheduled 2022-08-20 INFLUENZA VACCINE Method [facility] Hospital Test 03:10:19 [code = INFLUENZA VACCINE] Future Scheduled 2022-07-19 DIABETIC FOOT EXAM [facility] Test 07:26:52 [code = DIABETIC FOOT EXAM] Future Scheduled 2022-07-19 COLONOSCOPY SCREENING [facility] Test 07:26:52 [code = COLONOSCOPY SCREENING] Future Scheduled 2022-07-19 DIABETES: RETINAL EYE [facility] Test 07:26:52 EXAM [code = DIABETES: RETINAL EYE EXAM] Future Scheduled 2022-07-19 SHINGLES VACCINES ([address] [facility] Test 07:26:52 of 2) [code = SHINGLES VACCINES (1 of 2)] Future Scheduled 2022-07-19 BREAST CANCER [facility] Test 07:26:52 SCREENING [code = BREAST CANCER SCREENING] Future Scheduled 2022-07-19 COVID-19 VACCINE (4 - [facility] Test 07:26:52 Booster for Pfizer series) [code = COVID-19 VACCINE (4 - Booster for Pfizer series)] Future Scheduled 2022-07-19 INFLUENZA VACCINE Method [facility] Test 07:26:52 [code = INFLUENZA VACCINE] Future [...] SCREENING] Future Scheduled 2022-05-17 DIABETIC FOOT EXAM [facility] Test 10:42:08 [code = DIABETIC FOOT EXAM] Future Scheduled 2022-05-17 COLONOSCOPY SCREENING [facility] Test 10:42:08 [code = COLONOSCOPY SCREENING] Future Scheduled 2022-05-17 DIABETES: RETINAL EYE [facility] Test 10:42:08 EXAM [code = DIABETES: RETINAL EYE EXAM] Future Scheduled 2022-05-17 SHINGLES VACCINES ([address] [facility] Test 10:42:08 of 2) [code = SHINGLES VACCINES (1 of 2)] Future Scheduled 2022-05-17 BREAST CANCER [facility] Test 10:42:08 SCREENING [code = BREAST CANCER SCREENING] Future Scheduled 2022-05-17 COVID-19 VACCINE (4 - Me [facility] Test 10:42:08 Booster for Pfizer series) [code = COVID-19 VACCINE (4 - Booster for Pfizer series)] Future Scheduled 2022-05-17 INFLUENZA VACCINE Method [facility] Test 10:42:08 [code = INFLUENZA VACCINE] [...] [facility] breast (procedure) [code = 506293763] Future Scheduled [address] [facility] Test 00:00:00 (combo) [code = CT Medical C enter Colonography (combo)] Future Scheduled [address] [facility] 00:[facility]:00 malignant neoplasm of [facility] colon (procedure) [code = 619884789] Future Scheduled [address] [facility] Test 00:00:00 [facility] colon (procedure) [code = 162286115] Future Scheduled 1948 DXA SCAN [code = DXA [facility] Test 00:00:00 SCAN] [facility] Future Scheduled [address] [facility] Test 00:00:00 malignant ne[facility] colon (procedure) [code = 600195687] Future Scheduled [address] [facility] Test 00:00:00 malignant ne[facility] colon (procedure) [code = 511196282] Future Scheduled 1948 Sigmoidoscopy [facility] Future Scheduled [address] [facility] Test 00:00:00 malignant neoplasm of [facility] breast (procedure) [code = 687304445] Future Scheduled [address] [facility] Test 00:00:00 (combo) [code = CT Medical C enter Colonography (combo)] Future Scheduled [address] [facility] Test 00:00:00 malignant ne[facility] colon (procedure) [code = 217589358] Future Scheduled [address] [facility] Test 00:00:00 malignant neoplasm [facility] colon (procedure) [code = 704896814] Future Scheduled 1948 DXA SCAN [code = DXA [facility] Test 00:00:00 SCAN] [facility] Future Scheduled [address] [facility] Test 00:00:00 malignant ne[facility] colon (procedure) [code = 775885681] Future Scheduled [address] [facility] Test 00:00:00 malignant ne[facility] colon (procedure) [code = 667717904] Future Scheduled 1948 S[facility]oidoscopy [facility] Future Scheduled [address] [facility] Test 00:00:00 malignant ne[facility] breast (procedure) [code = 296265350] Future Scheduled [address] [facility] Test 00:00:00 (combo) [code = CT Medical C enter Colonography (combo)] Future Scheduled [address] [facility] Test 00:00:00 malignant neoplasm [facility] colon (procedure) [code = 035151228] Future Scheduled [address] [facility] Test 00:00:00 malignant ne[facility] colon (procedure) [code = 574610380] Future Scheduled 1948 DXA SCAN [code = DXA [facility] Test 00:00:00 SCAN] [facility] Future Scheduled [address] [facility] Test 00:00:00 malignant neoplasm [facility] colon (procedure) [code = 426012346] Future Scheduled [address] [facility] Test 00:00:00 malignant neoplasm [facility] colon (procedure) [code = 370377626] Future Scheduled 1948 [facility]igmoidoscopy [facility]] [facility] Future Scheduled [address] [facility] Test 00:00:00 malignant neoplasm of [facility] breast (procedure) [code = 974365562] Future Scheduled [address] [facility] Test 00:00:00 (combo) [code = CT Medical C enter Colonography (combo)] Future Scheduled [address] [facility] Test 00:00:00 malignant neoplasm [facility] colon (procedure) [code = 055626189] Future Scheduled [address] [facility] Test 00:00:00 malignant neoplasm [facility] colon (procedure) [code = 022749847] Future Scheduled 1948 DXA SCAN [code = DXA [facility] Test 00:00:00 SCAN] [facility] Future Scheduled [address] [facility] Test 00:00:00 malignant neoplasm [facility] colon (procedure) [code = 400526263] Future Scheduled [address] [facility] Test 00:00:00 malignant [facility] colon (procedure) [code = 307760149] Future Scheduled 1948 [facility]oidoscopy [facility]] [facility] Future Scheduled [address] [facility] Test 00:00:00 malignant neoplasm [facility] breast (procedure) [code = 237770661] Future Scheduled [address] [facility] 00:00:00 (combo) [code = CT Medical C enter Colonography (combo)] Future Scheduled [address] [facility] Test 00:00:00 malignant neoplasm [facility] colon (procedure) [code = 085926182] Future Scheduled [address] [facility] Test 00:00:00 malignant neoplasm [facility] colon (procedure) [code = 087467456] Future Scheduled 1948 DXA SCAN [code = DXA [facility] Test 00:00:00 SCAN] [facility] Future Scheduled [address] [facility] Test 00:00:00 malignant neoplasm [facility] colon (procedure) [code = 669838603] Future Scheduled [address] [facility] Test 00:00:00 malignant neoplasm [facility] colon (procedure) [code = 227226951] Future Scheduled 1948 [facility]igmoidoscopy [facility] 00:[facility]] [facility] Future Scheduled [address] [facility] Test 00:00:00 malignant neoplasm of [facility] breast (procedure) [code = 433783589] Future Scheduled [address] [facility] 00:00:00 (combo) [code = CT Medical C enter Colonography (combo)] Future Scheduled [address] [facility] Test 00:00:00 malignant neoplasm of [facility] colon (procedure) [code = 832015434] Future Scheduled [address] [facility] Test 00:00:00 malignant neoplasm of [facility] colon (procedure) [code = 543301423] Future Scheduled 1948 DXA SCAN [code = DXA [facility] Test 00:00:00 SCAN] [facility] Future Scheduled [address] [facility] Test 00:00:00 malignant neoplasm of [facility] colon (procedure) [code = 815354115] Future Scheduled [address] [facility] Test 00:00:00 malignant neoplasm [facility] colon (procedure) [code = 121023472] Future Scheduled 1948 Sigmoidoscopy [facility] Future Scheduled [address] [facility] Test 00:00:00 malignant neoplasm of [facility] breast (procedure) [code = 715355804] Future Scheduled [address] [facility] Test 00:00:00 (combo) [code = CT Medical C enter Colonography (combo)] Future Scheduled [address] [facility] Test 00:00:00 malignant neoplasm [facility] colon (procedure) [code = 280129290] Future Scheduled [address] [facility] Test 00:00:00 malignant neoplasm [facility] colon (procedure) [code = 013354243] Future Scheduled 1948 DXA SCAN [code = DXA [facility] Test 00:00:00 SCAN] [facility] Future Scheduled [address] [facility] Test 00:00:00 malignant neoplasm of [facility] colon (procedure) [code = 893853136] Future Scheduled [address] [facility] Test 00:00:00 malignant neoplasm [facility] colon (procedure) [code = 449220327] Future Scheduled 1948 [facility]oidoscopy [facility] 00:[facility]] [facility] Encounters Start End Encounter Admission Attending Care Care Encounter Source Date/Time Date/Time Type Type Clinicians Facility Department ID 2022-06-08 Inpatient EL Alfredo, [facility] DAYS [id number] [facility] 09:00:00 Greg 07 [facility] 2022-01-05 Inpatient [facility] [id number] [facility] St 13:58:43 Kim [facility] 2021-11-04 Outpatient [facility] [id number] [place] 14:10:46 [id number] [facility] 2021-08-11 Outpatient [facility] [id number] [place] 09:26:19 [id number] [facility] 2022-07-05 2022-07-05 Orders Doctor MACKENZIE 1.2.840.114 [id number] [facility] 00:00:00 00:00:00 Only Unassigned, YARELI 350.1.13.10 [facility] 4.2.7.2.686 Kev as [phone] [address] 2022-04-01 2022-04-01 Orders Doctor MACKENZIE 1.2.840.114 [id number] [facility] 00:00:00 00:00:00 Only Unassigned, YARELI 350.1.13.10 [facility] 4.2.7.2.686 Kev as [phone] [address] 2022-03-24 2022-03-24 Telephone Eran [facility] 1.2.612.295 [id number] Univers 00:00:00 00:00:00 Luc S HEALTH 350.1.13.10 it y of [place] 4.2.7.2.686 Kev as MARISA?BLEA [phone] Pa garcía LEMA [address] [facility] OFFICE [facility] 2022-03-23 2022-03-23 Telephone Eran [facility] 1.2.386.869 [id number] Univers 00:00:00 00:00:00 Luc S HEALTH 350.1.13.10 it y of [place] 4.2.7.2.686 Kev as MARISA?BLEA [phone] Pa dical KNADOLFO [address] [facility] OFFICE [facility] 2022-03-18 2022-03-18 Telephone Berenice [facility] 1.2.840.114 [id number] Univers 00:00:00 00:00:00 Alannah L HEALTH 350.1.13.10 it y of [place] 4.2.7.2.686 Kev as MARISA?BLEA [phone] Pa dical KATE [address] [facility] OFFICE [facility] 2022-03-16 2022-03-16 Telephone [facility] 1.2.840.114 [id number] Univers 00:00:00 00:00:00 Alannah Conrad [facility] 4[facility]2.7[facility]2.686 [facility] AT [phone] Pa garcía [place] [address] [place] [address] 2022-01-07 2022-01-18 Inpatient UR MAIDA, [facility] [id number] [facility] 17:48:00 16:48:00 ANNALEE 2022-01-07 2022-01-18 Hospital UR Annalee Bey C [facility] [id number] 17:48:00 16:48:00 Encounter Mauro Mendoza [facility] 2022-01-07 2022-01-07 Travel [facility] [id number] [facility] 00:[facility] 00:00:00 [facility] 2022-01-02 2022-01-02 Out[facility] [id number] [facility] 00:00:00 00:00:00 ALANNAH durand [facility] 2021-09-06 2021-09-16 [facility] Trinidad Menard 1.2.840.1 [id number] Methodi 14:46:00 18:55:00 Encounter Corrine Osuna 88307.1.[address] 3.430.2.7 Hospit a .3.638284 l .8 2021-09-13 2021-09-13 Anesthesia Natasha, 1.2.840.1 [id number] Methodi 14:58:00 15:19:00 Event Edwin 13500.1.[address] Alannah 3.430.2.7 Hospit a .3.642502 l .8 2021-09-13 2021-09-13 Surgery John, 1.2.840.1 [id number] [facility]i 14:22:00 14:27:[address] Ongeri 3.430.2.7 Hospit a .3.716521 l .8 2021-09-06 2021-09-06 Travel 1.2.840.1 1.2.148.481 [id number] [facility]i 00:00:00 00:00:[address] 3.430.2.7 0.2.7.3.698 Ho familiata .3.229385 084.8 l .8 2021-07-31 2021-08-13 Hospital Tammy Dumont 1.2.840.1 [id number] [facility]i 04:12:00 19:46:00 Encounter Edwin Ayers 64093.1.[address] Tasneem Ellison 3.430.2.7 [facility] .3.516131 l .8 2021-08-12 2021-08-12 Anesthesia Leodan Rebolledo 1.2.840.1 [id number] 2 [id number] Methodi 18:09:00 19:38:[address] 3.430.2.7 Hospit a .3.835717 l .8 2021-08-12 2021-08-12 Surgery Ru, 1.2.840.1 [id number] Methodi 17:35:00 18:50:[address] 3.430.2.7 Hospit a .3.606444 l .8 2021-08-05 2021-08-05 Anesthesia Andre Navarro 1.2.840.1 [id number] Methodi 15:12:00 16:16:00 Event Grzayna Martinez 71700.1.[address] 3.430.2.7 Hospit a .3.055900 l .8 2021-08-05 2021-08-05 Surgery Abbie, 1.2.840.1 [id number] [facility]i 15:20:00 16:05:[address] 3.430.2.7 Hospit a .3.977716 l .8 2021-08-02 2021-08-02 Documentat Jessica, 1.2.840.1 [id number] [facility]i 00:00:00 00:00:00 ion Unknown 69597.1.[address] 3.430.2.7 Hospit a .3.605043 l .8 2021-07-14 2021-07-14 Transcribe Vanda 1.2.840.1 [id number] [facility]i 00:00:00 00:00:00 Orders , Zulema 29568.1.[address] 3.430.2.7 Hospit a .3.566237 l .8 2021-06-10 2021-06-10 Clinical 1.2.840.1 [id number] [id number] [facility]i 15:45:00 15:58:[address] 3.430.2.7 Hospit a .3.072667 l .8 2021-06-10 2021-06-10 Travel 1.2.840.1 1.2.477.466 3795 [id number] [facility]i 00:00:00 00:00:[address] 3.430.2.7 0.2.7.3.698 Ho spita .3.420130 084.8 l .8 2021-06-09 2021-06-09 Outpatient [facility] [id number] 02-08 [facility] 11:40:00 11:40:00 [id number] Family Practic e 2021-06-01 2021-06-04 Outpatient EMILIANO-TASIA, [facility] [id number] [place] 00:00:00 00:00:00 MAHA [address] 2020-08-05 2020-08-05 Outpatient VANDA [facility] [id number] [place] 00:00:00 00:00:00 , ZULEMA [address] 2020-07-09 2020-07-09 Outpatient [facility] [id number] [place] 00:00:00 00:00:[address] 2020-06-18 2020-06-18 Outpatient [facility] [id number] [place] 00:00:00 00:00:[address] 2020-04-05 2020-04-06 Outpatient AL-LAHIQ, [place] [id number] [place] 00:00:00 00:00:00 MAHA 881 Method i 2020-03-22 2020-03-25 Inpatient AL-LAHIQ, [place] [address] [id number] 9480 [place] 00:00:00 00:00:00 MAHA 725 Method i 2020-02-27 2020-02-27 Outpatient BHUMI, [facility] [id number] [place] 00:00:00 00:00:00 DAVID 385 Method i 2020-02-17 2020-02-18 Outpatient AL-LAHIQ, [place] [address] [id number] 03588 [place] 00:00:00 00:00:00 MAHA 408 Method i 2020-01-17 2020-01-18 Emergency JOSE A, [place] [address] [id number] 46 [place] 00:00:00 00:00:00 SHAKEEL 668 Method i 2019-10-23 2019-10-26 Inpatient AL-LAHIQ, [place] [id number] 6543 [place] 00:00:00 00:00:00 MAHA 153 Method i 2019-08-05 2019-08-05 Outpatient FRIEND-SAMMAN [facility] [id number] [place] 00:00:00 00:00:00 , ZULEMA 952 Method i 2019-07-10 2019-07-12 Inpatient AL-LAHIQ, [facility] [id number] [place] 00:00:00 00:00:00 MAHA 402 Method i 2019-03-27 2019-03-30 Outpatient TEQWIMUAH, [facility] [id number] [place] 00:00:00 00:00:00 SARAI 954 Method i Results Test Description Test Time Test Comments Results Result Comments Source POC-Glucose meter 2022-01-18 12:22:13 Test Item Value Reference Range Interpretation Comme nts POC-Glucose Meter (test code = 102 mg/dL 70-110 : TESTED AT [facility] [address] [place] [address]) [facility] [address]: Safety Compliance Specialist/Techni faviola ID = [id number] for Myriam Lopez laura Lab Interpretation (test code = Normal 60885-1) [id number] 12:22:13 Test Item Value Reference Range Interpretation Comments POC-Glucose Meter (test 102 mg/dL 70-110 : TE STED AT [facility] code = 1538) [address] [place] [address]: Safety Compliance Specialist/Techni faviola ID = [id number] for Yelling, [place] a Lab Interpretation (test Normal code = 46076-0) [facility] [id number] 12:22:13 Test Item Value Reference Range Interpretation Comments POC-Glucose Meter (test 102 mg/dL 70-110 : TE STED AT [facility] code = 1538) [address] [place] [address]: Safety Compliance Specialist/Techni faviola ID = [id number] for Yelling, [place] a Lab Interpretation (test Normal code = 36787-4) [facility] [id number] 12:22:13 Test Item Value Reference Range Interpretation Comments POC-Glucose Meter (test 102 mg/dL 70-110 : TE STED AT [facility] code = 1538) [address] [place] [address]: Safety Compliance Specialist/Techni faviola ID = [id number] for Yelling, [place] a Lab Interpretation (test Normal code = 26656-3) [facility] [id number] 12:22:13 Test Item Value Reference Range Interpretation Comments POC-Glucose Meter (test 102 mg/dL 70-110 : TE STED AT [facility] code = 1538) [address] [place] [address]: Safety Compliance Specialist/Techni faviola ID = [id number] for Yelling, [place] a Lab Interpretation (test Normal code = 55725-0) [facility] [id number] 12:22:13 Test Item Value Reference Range Interpretation Comments POC-Glucose Meter (test 102 mg/dL 70-110 : TE STED AT [facility] code = 1538) [address] [place] [address]: Safety Compliance Specialist/Techni faviola ID = [id number] for Yelling, Yoland a Lab Interpretation (test Normal code = 36939-8) [facility] [id number] 12:22:13 Test Item Value Reference Range Interpretation Comments POC-Glucose Meter (test 102 mg/dL 70-110 : TE STED AT [facility] code = 1538) [address], [place] [address]: Safety Compliance Specialist/Techni faviola ID = [id number] for Myriam Lopez Lab Interpretation (test Normal code = 94968-3) [facility] [id number] 12:22:13 Test Item Value Reference Range Interpretation Comments POC-GLUCOSE METER 102 mg/dL 70-110 : TESTED A T [facility] [address] (BEAKER) (test code [address], = 1538) [facility] [address]: Safety Compliance Specialist/Techni faviola ID = [id number] for Zuri Maharaj BASIC METABOLIC [id number] 06:40:34 Test Item Value Reference Range Interpretation [...] not appl icable for dialysis patien ts Safety Compliance Specialist ID - [id number] ID - [id number] ID - [id number] ID - [id number] ID - [id number] ID - YKUNLPFEH573Qgabxjbr ID - [id number] ID - [id number] ID - [id number] ID - [id number] ID - [id number] ID - [id number] ID - [id number]-XNAOXNF [id number] 19:58:07 Test Item Value Reference Range Interpretation Comments POC-GLUCOSE METER 126 mg/dL 70-110 H : TESTED A T [facility] 1317 ([facility]) (test code [facility], = 1538) [place] [address]: Safety Compliance Specialist/Techni faviola ID = [id number] for Will Zen lewiscas POCT-GLUCOSE [id number] 17:18:36 Test Item Value Reference Range Interpretation Comments POC-GLUCOSE METER 128 mg/dL 70-110 H : Notified RN/MD: TESTED ([facility]) (test code AT [facility] [address] = 1538) [place] [address]: Safety Compliance Specialist/Techni faviola ID = [id number] for Thak er, Nikitaben POCT-GLUCOSE [id number] 12:27:16 Test Item Value Reference Range Interpretation Comments POC-GLUCOSE METER 141 mg/dL 70-110 H : TESTED A T [facility] 1317 ([facility]) (test code [facility], = 1538) [place] [address]: Safety Compliance Specialist/Techni faviola ID = [id number] for Thak er, Nikitaben POCT-GLUCOSE [id number] 08:42:44 Test Item Value Reference Range Interpretation Comments POC-GLUCOSE METER 152 mg/dL 70-110 H : Notified RN/MD: TESTED ([facility]) (test code AT [facility] [address] = 1538) [place] [address]: Safety Compliance Specialist/Techni faviola ID = [id number] for Thak er, Nikitaben BASIC METABOLIC [id number] 05:53:56 Test Item Value Reference Range Interpretation [...] not appl icable for dialysis patien ts Safety Compliance Specialist ID - [id number] ID - [id number] ID - [id number] ID - FVNARZLZT336Fodmbexj ID - [id number] ID - HIKPPLHVL264Hucnmxau ID - [id number] ID - KPUPSSGUV686Uvpezlkr ID - OELTSVAMS457Ycstpsdk ID - [id number] ID - LBVSCQELD165Dgxxuxmc ID - [id number] ID - [id number]-YVKWSRB [id number] 20:28:58 Test Item Value Reference Range Interpretation Comments POC-GLUCOSE METER 184 mg/dL 70-110 H : TESTED A T [facility] [address] (BEAKER) (test code [address], = 1538) [place] [address]: Safety Compliance Specialist/Techni faviola ID = [id number] for Ina Agrawal POCT-GLUCOSE [id number] 15:57:54 Test Item Value Reference Range Interpretation Comments POC-GLUCOSE METER 187 mg/dL 70-110 H : TESTED A T [facility] [address] (BEAKER) (test code [address], = 1538) [place] [address]: Safety Compliance Specialist/Techni faviola ID = [id number] for Aileen Loja POCT-GLUCOSE [id number] 11:57:54 Test Item Value Reference Range Interpretation Comments POC-GLUCOSE METER 163 mg/dL 70-110 H : TESTED A T [facility] [address]17 (BEAKER) (test code [address], = 1538) [place] [address]: Safety Compliance Specialist/Techni faviola ID = [id number] for Aileen Loja POCT-GLUCOSE [id number] 07:59:00 Test Item Value Reference Range Interpretation Comments POC-GLUCOSE METER 129 mg/dL 70-110 H : TESTED A T [facility] [address]17 (BEAKER) (test code [address], = 1538) [place] [address]: Safety Compliance Specialist/Techni faviola ID = [id number] for Ej vergara Aileen POCT-GLUCOSE [id number] 20:24:24 Test Item Value Reference Range Interpretation Comments POC-GLUCOSE METER 185 mg/dL 70-110 H : TESTED A T [facility] [address]17 (BEAKER) (test code [address], = 1538) [place] [address]: Safety Compliance Specialist/Techni faviola ID = [id number] for Agustin Patel POCT-GLUCOSE [id number] 18:05:34 Test Item Value Reference Range Interpretation Comments POC-GLUCOSE METER 126 mg/dL 70-110 H : TESTED A T [facility] [address]17 (BEAKER) (test code [address], = 1538) [place] [address]: Safety Compliance Specialist/Techni faviola ID = [id number] for Consuelo Leija POCT-GLUCOSE [id number] 12:43:19 Test Item Value Reference Range Interpretation Comments POC-GLUCOSE METER 154 mg/dL 70-110 H : TESTED A T [facility] [address]17 (BEAKER) (test code [address], = 1538) [facility] 77 [address]: Safety Compliance Specialist/Techni faviola ID = [id number] for Consuelo Leija POCT-GLUCOSE [id number] 07:44:17 Test Item Value Reference Range Interpretation Comments POC-GLUCOSE METER 142 mg/dL 70-110 H : TESTED A T [facility] [address]17 (BEAKER) (test code [address], = 1538) [facility] [address]: Safety Compliance Specialist/Techni faviola ID = [id number] for Consuelo Leija BASIC METABOLIC [id number] 05:55:22 Test Item Value Reference Range Interpretation [...] not appl icable for dialysis patien ts Safety Compliance Specialist ID - LITOOperator ID - LITOOperator ID - LITOOperator ID - LITOOperator ID - LITOOperator ID - LITOOperator ID - LITOOperator ID - LITOOperator ID - LITOOperator ID - LITOOperator ID - LITOOperator ID - LITOOperator ID - MARTÍN POCT-GLUCOSE [id number] 20:53:58 Test Item Value Reference Range Interpretation Comments POC-GLUCOSE METER 194 mg/dL 70-110 H : TESTED A T [facility] [address]17 (BEAKER) (test code [address], = 1538) [place] [address]: Safety Compliance Specialist/Techni faviola ID = [id number] for Aileen Loja POCT-GLUCOSE [id number] 15:49:19 Test Item Value Reference Range Interpretation Comments POC-GLUCOSE METER 171 mg/dL 70-110 H : TESTED A T [facility] [address]17 (BEAKER) (test code [address], = 1538) [place] [address]: Safety Compliance Specialist/Techni faviola ID = [id number] for Aileen Loja SARS-CoV2/RT-PCR (Asymptomatic ONLY)2022-01-14 15:42:35 Test Item Value Reference Interpretation Comments Range SARS-COV2/RT-PCR Negative Negative The SARS-Co V-2 (test code = target nucleic 50174-0) acids are not detected in thi s [...] revoked sooner. Fact Sheet for Healthcare Providers: https://www.[facility]/Documents/Xp ert%20Xpress%20SAR S%20CoV-2/Fact%20S heets/302-3802%20S ARS-COV-2%20HEALTH CARE%20PROVIDERS%2 0FACT%20SHEET.pdf Fact Sheet for Healthcare Patients: https://www.[facility]/Documents/Xp ert%20Xpress%20SAR S%20CoV-2/Fact%20S heets/302-3801%20S ARS-COV-2%20PATIEN T%20FACT%20SHEET.p df Lab Interpretation Normal (test code = 96309-2) [facility]2022-01-14 15:42:35 Test Item Value Reference Interpretation Comments Range SARS-COV2/RT-PCR Negative Negative The SARS-Co V-2 (test code = target nucleic 19903-1) acids are not detected in thi s [...] revoked sooner. Fact Sheet for Healthcare Providers: https://www.[facility]/Documents/Xp ert%20Xpress%20SAR S%20CoV-2/Fact%20S heets/302-3802%20S ARS-COV-2%20HEALTH CARE%20PROVIDERS%2 0FACT%20SHEET.pdf Fact Sheet for Healthcare Patients: https://www.[facility]/Documents/Xp ert%20Xpress%20SAR S%20CoV-2/Fact%20S heets/302-3801%20S ARS-COV-2%20PATIEN T%20FACT%20SHEET.p df Lab Interpretation Normal (test code = 36304-0) [facility]2022-01-14 15:42:35 Test Item Value Reference Interpretation Comments Range SARS-COV2/RT-PCR Negative Negative The SARS-Co V-2 (test code = target nucleic 98649-6) acids are not detected in thi s [...] revoked sooner. Fact Sheet for Healthcare Providers: https://www.[facility]/Documents/Xp ert%20Xpress%20SAR S%20CoV-2/Fact%20S heets/302-3802%20S ARS-COV-2%20HEALTH CARE%20PROVIDERS%2 0FACT%20SHEET.pdf Fact Sheet for Healthcare Patients: https://www.[facility]/Documents/Xp ert%20Xpress%20SAR S%20CoV-2/Fact%20S heets/302-3801%20S ARS-COV-2%20PATIEN T%20FACT%20SHEET.p df Lab Interpretation Normal (test code = 38053-7) [facility]2022-01-14 15:42:35 Test Item Value Reference Interpretation Comments Range SARS-COV2/RT-PCR Negative Negative The SARS-Co V-2 (test code = target nucleic 12510-6) acids are not detected in thi s [...] revoked sooner. Fact Sheet for Healthcare Providers: https://www.[facility]/Documents/Xp ert%20Xpress%20SAR S%20CoV-2/Fact%20S heets/302-3802%20S ARS-COV-2%20HEALTH CARE%20PROVIDERS%2 0FACT%20SHEET.pdf Fact Sheet for Healthcare Patients: https://www.[facility]/Documents/Xp ert%20Xpress%20SAR S%20CoV-2/Fact%20S heets/302-3801%20S ARS-COV-2%20PATIEN T%20FACT%20SHEET.p df Lab Interpretation Normal (test code = 05230-0) [facility]2022-01-14 15:42:35 Test Item Value Reference Interpretation Comments Range SARS-COV2/RT-PCR Negative Negative The SARS-Co V-2 (test code = target nucleic 99757-5) acids are not detected in thi s [...] revoked sooner. Fact Sheet for Healthcare Providers: https://www.[facility]/Documents/Xp ert%20Xpress%20SAR S%20CoV-2/Fact%20S heets/3023802%20S ARS-COV-2%20HEALTH CARE%20PROVIDERS%2 0FACT%20SHEET.pdf Fact Sheet for Healthcare Patients: https://www.[facility]/Documents/Xp ert%20Xpress%20SAR S%20CoV-2/Fact%20S heets/302-3801%20S ARS-COV-2%20PATIEN T%20FACT%20SHEET.p df Lab Interpretation Normal (test code = 85860-4) [facility]2022-01-14 15:42:35 Test Item Value Reference Interpretation Comments Range SARS-COV2/RT-PCR Negative Negative The SARS-Co V-2 (test code = target nucleic 16561-6) acids are not detected in thi s [...] revoked sooner. Fact Sheet for Healthcare Providers: https://www.[facility]/Documents/Xp ert%20Xpress%20SAR S%20CoV-2/Fact%20S heets/302-3802%20S ARS-COV-2%20HEALTH CARE%20PROVIDERS%2 0FACT%20SHEET.pdf Fact Sheet for Healthcare Patients: https://www.[facility]/Documents/Xp ert%20Xpress%20SAR S%20CoV-2/Fact%20S heets/302-3801%20S ARS-COV-2%20PATIEN T%20FACT%20SHEET.p df Lab Interpretation Normal (test code = 37848-1) [facility]2022-01-14 15:42:35 Test Item Value Reference Interpretation Comments Range SARS-COV2/RT-PCR Negative Negative The SARS-Co V-2 (test code = target nucleic 05870-6) acids are not detected in thi s [...] revoked sooner. Fact Sheet for Healthcare Providers: https://www.[facility]/Documents/Xp ert%20Xpress%20SAR S%20CoV-2/Fact%20S heets/302-3802%20S ARS-COV-2%20HEALTH CARE%20PROVIDERS%2 0FACT%20SHEET.pdf Fact Sheet for Healthcare Patients: https://www.[facility]/Documents/Xp ert%20Xpress%20SAR S%20CoV-2/Fact%20S heets/302-3801%20S ARS-COV-2%20PATIEN T%20FACT%20SHEET.p df Lab Interpretation Normal (test code = 41404-7) [facility])2022-01-14 15:42:35 Test Item Value Reference Range Interpretation Comments SARS-COV2/RT-PCR Negative Negative The SARS-Co V-2 target (test code = nucleic acids a re not 3184458) detected in thi s specimen. Negative result [...] revoked sooner. Fact Sheet for Healthcare Providers: https://www.[employer]/Documents/Xpert%20Xpress%20SARS%20CoV-2/Fact%20Sheets/557-8292%13UUGU-OUL-6%20 HEALTHCARE%20PROVIDERS%20FACT%20SHEET.pdf Fact Sheet for Healthcare Patients: https://www.[employer]/Documents/Xpert%20Xp ress%20SARS%20CoV-2/Fact%20Sheets/302-2671%02GEYJ-JSU-6%20PATIENT%20FACT%20SHEET .pdfRAD, CHEST, 1 VIEW, NON [id number] 15:02:00Reason for exam:- >SOBShould this be performed at the bedside?->Yes [facility] : 1950 Sex: FFINAL REPORT Chest AP [...] MDReport Verified Date/Time: 01/14/2022 15:02:16 Reading Location: [facility] Radiology Reading Room POCT-GLUCOSE [id number] 12:14:41 Test Item Value Reference Range Interpretation Comments POC-GLUCOSE METER 134 mg/dL 70-110 H : TESTED A T [facility] 1317 (BEAKER) (test code [address], = 1538) [facility] [address]: Safety Compliance Specialist/Techni faviola ID = [id number] for Ej vergaraAileen, CENTRAL VENOUS CATH PLCMT (JUG/FEM) > 5 Y.O. WITH [id number] 11:25:00Reason for exam:->Non tunneled central line placement [facility] : 1950 Sex: FFINAL REPORT INSERTION [...] , real-time ultrasound guidance was used to puncture the vessel. A permanent recording was created for the patient's record. Over a guidewire, a20 cm length triple-lumen catheter was inserted with tip at superior right atrium. Position documented with fluoroscopic spot film. The catheter was flushed and secured in place with 2-0 silk sutures. Sterile dressing applied. Catheter is ready for immediate use. Fluoroscopy time: 0.4 minutes Radiation dose (Ka,r): 2 mGy Signed: Carl Link MDReport Verified Date/Time: 01/14/2022 11:25:42 Reading Location: [facility] Radiology Reading Room POCT-GLUCOSE [id number] 08:34:59 Test Item Value Reference Range Interpretation Comments POC-GLUCOSE METER 147 mg/dL 70-110 H : TESTED A T [facility] 1317 (BEAKER) (test code [address], = 1538) [facility] [address]: Safety Compliance Specialist/Techni faviola ID = [id number] for Aileen Loja BASIC METABOLIC [id number] 06:37:03 Test Item Value Reference Range Interpretation [...] not appl icable for dialysis patien ts Safety Compliance Specialist ID - LITOOperator ID - LITOOperator ID [...] 0-0 (BEAKER) (test code = 413) POCT-GLUCOSE [id number] 19:50:36 Test Item Value Reference Range Interpretation Comments POC-GLUCOSE METER 199 mg/dL 70-110 H : TESTED A T [facility] [address] (BEAKER) (test code [address], = 1538) [place] [address]: Safety Compliance Specialist/Techni faviola ID = [id number] for Ina Agrawal POCT-GLUCOSE [id number] 16:52:12 Test Item Value Reference Range Interpretation Comments POC-GLUCOSE METER 150 mg/dL 70-110 H : TESTED A T [facility] [address] (BEAKER) (test code [address], = 1538) [place] [address]: Safety Compliance Specialist/Techni faviola ID = [id number] for Aileen Loja POCT-GLUCOSE [id number] 14:05:10 Test Item Value Reference Range Interpretation Comments POC-GLUCOSE METER 122 mg/dL 70-110 H : TESTED A T [facility] [address] (BEAKER) (test code [address], = 1538) [place] [address]: Safety Compliance Specialist/Techni faviola ID = [id number] for Nancy Douglass Blood gas, [id number] 09:06:33 Test Item Value Reference Range Interpretation Comments pH, Arterial (test code 7.45 7.35-7.45 = 2744-1) pCO2, Arterial (test 40 See_Comment [Autom ated message] code = 2019) The system [facility] generated this result transmit kenneth reference range : 35 - 45 mm Hg. The reference range was not used to interpret this result as normal/abnormal . pO2, Arterial (test 79 See_Comment L [Automa kenneth message] code = 2703-7) The system [employer] generated this result transmit kenneth reference range [...] 21 Lab Interpretation Abnormal (test code = 99117-3) [facility], [id number] 09:06:33 Test Item Value Reference Range Interpretation Comments pH, Arterial (test code 7.45 7.35-7.45 = 2744-1) pCO2, Arterial (test 40 See_Comment [Autom ated message] code = 2019-8) The system [employer] generated this result transmit kenneth reference range : 35 - 45 mm Hg. The reference range was not used to interpret this result as normal/abnormal . pO2, Arterial (test 79 See_Comment L [Automa kenneth message] code = 2703-7) The system [employer] generated this result transmit kenneth reference range [...] 21 Lab Interpretation Abnormal (test code = 02884-5) [facility], [id number] 09:06:33 Test Item Value Reference Range Interpretation Comments pH, Arterial (test code 7.45 7.35-7.45 = 2744-1) pCO2, Arterial (test 40 See_Comment [Autom ated message] code = 2019-8) The system [employer] generated this result transmit kenneth reference range : 35 - 45 mm Hg. The reference range was not used to interpret this result as normal/abnormal . pO2, Arterial (test 79 See_Comment L [Automa kenneth message] code = 2703-7) The system [employer] generated this result transmit kenneth reference range [...] 21 Lab Interpretation Abnormal (test code = 97282-1) [facility], [id number] 09:06:33 Test Item Value Reference Range Interpretation Comments pH, Arterial (test code 7.45 7.35-7.45 = 2744-1) pCO2, Arterial (test 40 See_Comment [Autom ated message] code = 2019-8) The system [employer] generated this result transmit kenneth reference range : 35 - 45 mm Hg. The reference range was not used to interpret this result as normal/abnormal . pO2, Arterial (test 79 See_Comment L [Automa kenneth message] code = 2703-7) The system [employer] generated this result transmit kenneth reference range [...] 21 Lab Interpretation Abnormal (test code = 35096-4) [facility], [id number] 09:06:33 Test Item Value Reference Range Interpretation Comments pH, Arterial (test code 7.45 7.35-7.45 = 2744-1) pCO2, Arterial (test 40 See_Comment [Autom ated message] code = 2019-) The system [employer] generated this result transmit kenneth reference range : 35 - 45 mm Hg. The reference range was not used to interpret this result as normal/abnormal . pO2, Arterial (test 79 See_Comment L [Automa kenneth message] code = 2703-7) The system [employer] generated this result transmit kenneth reference range [...] 21 Lab Interpretation Abnormal (test code = 06165-6) [facility], [id number] 09:06:33 Test Item Value Reference Range Interpretation Comments pH, Arterial (test code 7.45 7.35-7.45 = 2744-1) pCO2, Arterial (test 40 See_Comment [Autom ated message] code = 2019-) The system [employer] generated this result transmit kenneth reference range : 35 - 45 mm Hg. The reference range was not used to interpret this result as normal/abnormal . pO2, Arterial (test 79 See_Comment L [Automa kenneth message] code = 2703-7) The system [employer] generated this result transmit kenneth reference range [...] 21 Lab Interpretation Abnormal (test code = 84310-5) [facility], [id number] 09:06:33 Test Item Value Reference Range Interpretation Comments pH, Arterial (test code 7.45 7.35-7.45 = 2744-1) pCO2, Arterial (test 40 See_Comment [Autom ated message] code = 2019-8) The system [facility] generated this result transmit kenneth reference range : 35 - 45 mm Hg. The reference range was not used to interpret this result as normal/abnormal . pO2, Arterial (test 79 See_Comment L [Automa kenneth message] code = 2703-7) The system [facility] generated this result transmit kenneth reference range [...] 21 Lab Interpretation Abnormal (test code = 73550-2) [facility], [id number] 09:06:33 Test Item Value Reference Range Interpretation [...] (BEAKER) (test code = 1819) 21.0 POCT-GLUCOSE [id number] 08:36:44 Test Item Value Reference Range Interpretation Comments POC-GLUCOSE METER 132 mg/dL 70-110 H : TESTED A T [facility] (BEAKER) (test code [address], = 1538) [facility] [place] [address]: Safety Compliance Specialist/Techni faviola ID = [id number] for Aileen Loja TSH/FREE T4 IF [id number] 08:14:31 Test Item Value Reference Range Interpretation Comments THYROID STIMULATING HORMONE 1.790 uIU/mL 0.350-5.500 (BEAKER) (test code = 772) Safety Compliance Specialist ID - DSENSONCOMPREHENSIVE METABOLIC [id number] 08:04:08 Test Item Value Reference Range Interpretation [...] not appl icable for dialysis patien ts Safety Compliance Specialist ID - DSENSONOperator ID - DSENSONOperator ID - DSENSONOperator ID - DSENSONOperator ID - DSENSONOperator ID - DSENSONOperator ID - DSENSONOperator ID - DSENSONOperator ID - DSENSONOperator ID - DSENSONOperator ID - DSENSONOperator ID - DSENSONOperator ID - DSENSONOperator ID - DSENSONOperatorID - DSENSONOperator ID - DSENSONOperator ID - DSENSONOperator ID - DSENSONOperator ID - DSENSONTROPONIN [id number] 08:03:10 Test Item Value Reference Range Interpretation [...] failure, acidosis, acute neurological disease, and persistent tachyarrhythmia.Safety Compliance Specialist ID - DSENSONCT, BRAIN, WITHOUT [id number] 07:49:00 [facility] 1950 Sex: FFINAL REPORT CT, [...] 01/13/2022 07:49:20 CBC W/PLT COUNT & AUTO [id number] 07:39:37 Test Item Value Reference Range Interpretation [...] PERCENT (BEAKER) (test code = 2801) POCT-GLUCOSE [id number] 07:15:45 Test Item Value Reference Range Interpretation Comments POC-GLUCOSE METER 127 mg/dL 70-110 H : TESTED A T [facility] (BEAKER) (test code [facility] [address], = 1538) [place] [address]: Safety Compliance Specialist/Techni faviola ID = [id number] for Aileen Loja POCT-GLUCOSE [id number] 06:32:48 Test Item Value Reference Range Interpretation Comments POC-GLUCOSE METER 133 mg/dL 70-110 H : TESTED A T [facility] [address] (BEAKER) (test code [address], = 1538) [place] [address]: Safety Compliance Specialist/Techni faviola ID = [id number] for Mekhi nikia [place] POCT-GLUCOSE [id number] 21:05:05 Test Item Value Reference Range Interpretation Comments POC-GLUCOSE METER 195 mg/dL 70-110 H : TESTED A T [facility] [address] (BEAKER) (test code [address], = 1538) [place] [address]: Safety Compliance Specialist/Techni faviola ID = [id number] for [place] Pop POCT-GLUCOSE [id number] 19:32:35 Test Item Value Reference Range Interpretation Comments POC-GLUCOSE METER 180 mg/dL 70-110 H : TESTED A T [facility] [address] (BEAKER) (test code [address], = 1538) [place] [address]: Safety Compliance Specialist/Techni faviola ID = [id number] for [place] ins, Odalys POCT-GLUCOSE [id number] 19:30:16 Test Item Value Reference Range Interpretation Comments POC-GLUCOSE METER 50 mg/dL 70-110 L : TESTED A T [facility] [address] (BEAKER) (test code = [address], 1538) [place] [address]: Safety Compliance Specialist/Techni faviola ID = [id number] for [place] ins, Odalys POCT-GLUCOSE [id number] 18:09:32 Test Item Value Reference Range Interpretation Comments POC-GLUCOSE METER 63 mg/dL 70-110 L : TESTED A T [facility] (BEAKER) (test code = [address], 1538) [place] [address]: Safety Compliance Specialist/Techni faviola ID = [id number] for Robe Agrawal ANG, TUNNELED CATHETER [id number] 17:04:00Reason for exam:->dialysis catheter with poor flows on dialysis, very positional - please place tunneled dialysis catheter in a new position. [facility] 1950 Sex: FFINAL REPORT Tunneled dialysis catheter exchange, 01/12/2022. History: Renal failure, poor flow through the existing catheter. Modality: Sonography and fluoroscopy. Sedation: None. 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 Emission Technician: None. Approach: Internal jugular vein - right. [...] removed and a new 23 cm 15.5 Turkish Duraflow 2 catheter was advanced through the [...] dialysis catheter using fluoroscopic guidance. Signed: Nick DockeryMDReport Verified Date/Time: 01/12/2022 17:04:33 Reading Location: [facility] Reading Room POCT-GLUCOSE [id number] 12:20:13 Test Item Value Reference Range Interpretation Comments POC-GLUCOSE METER 107 mg/dL 70-110 : TESTED A T [facility] 1317 (BEAKER) (test code [address], = 1538) [place] [address] 478: Safety Compliance Specialist/Techni faviola ID = [id number] for Robe Agrawal POCT-GLUCOSE [id number] 09:01:23 Test Item Value Reference Range Interpretation Comments POC-GLUCOSE METER 118 mg/dL 70-110 H : TESTED A T [facility] (BEAKER) (test code [address], = 1538) [place] [address] 478: Safety Compliance Specialist/Techni faviola ID = [id number] for Robe Agrawal CBC W/PLT COUNT & AUTO [id number] 06:58:41 Test Item Value Reference Range Interpretation [...] code = 1+ few 961) BASIC METABOLIC [id number] 06:30:57 Test Item Value Reference Range Interpretation [...] not appl icable for dialysis patien ts Safety Compliance Specialist ID - LITOOperator ID - LITOOperator ID - LITOOperator ID - LITOOperator ID - LITOOperator ID - LITOOperator ID - LITOOperator ID - LITOOperator ID - LITOOperator ID - [id number] 06:19:11 Test Item Value Reference Range Interpretation Comments MAGNESIUM (BEAKER) (test code = 1.9 mg/dL 1.5-3.0 627) Safety Compliance Specialist ID - LITOOperator ID - LITOOperator ID - LITOOperator ID - MARTÍN [id number] 06:16:11 Test Item Value Reference Range Interpretation Comments PHOSPHORUS (BEAKER) (test code = 3.4 mg/dL 2.5-4.5 604) Safety Compliance Specialist ID - [id number] TIME/[id number] 06:03:04 Test Item Value Reference Range Interpretation Comments PROTIME (BEAKER) 12.4 seconds 9.3-12.0 H Final Infor mation (test code = 759) (Auto Outp ut) INR (BEAKER) (test 1.14 See_Comment Final Inf ormation code = 370) (Auto Output) [Automated mess age] The system Hotreader generated this result transmitted ref erence range: <=5.90. The reference range was not used to int erpret this result as normal/abnormal . RECOMMENDED COUMADIN/WARFARIN INR THERAPY RANGESSTANDARD DOSE: 2.0 - 3.0 Includes: PROPHYLAXIS for venous thrombosis, systemic embolization; TREATMENT for venous thrombosis and/or pulmonary embolus.HIGH RISK: Target INR is 2.5-3.5 for patients with mechanical heart valves.[id number] 06:03:04 Test Item Value Reference Range Interpretation Comments PARTIAL THROMBOPLASTIN 29.5 seconds 23.0-35.0 Final Information TIME (BEAKER) (test (Auto Ou tput) code = 760) POCT-GLUCOSE [id number] 20:00:47 Test Item Value Reference Range Interpretation Comments POC-GLUCOSE METER 172 mg/dL 70-110 H : TESTED A T [facility] (BEAKER) (test code [facility] [address], = 15[address]) [place] [address] 478: Safety Compliance Specialist/Techni faviola ID = [id number] for Will iaNatasha alvarengas POCT-GLUCOSE [id number] 18:09:30 Test Item Value Reference Range Interpretation Comments POC-GLUCOSE METER 121 mg/dL 70-110 H : TESTED A T [facility] (BEAKER) (test code [facility] [address], = 15[address]) [place] [address] 478: Safety Compliance Specialist/Techni faviola ID = [id number] for Will iams, Robe POCT-GLUCOSE [id number] 12:48:21 Test Item Value Reference Range Interpretation Comments POC-GLUCOSE METER 102 mg/dL 70-110 : TESTED A T [facility] (BEAKER) (test code [facility] [place] [address] 478: Safety Compliance Specialist/Techni faviola ID = [id number] for AvelinoLuz Elena montaguea POCT-GLUCOSE [id number] 08:00:17 Test Item Value Reference Range Interpretation Comments POC-GLUCOSE METER 119 mg/dL 70-110 H : TESTED A T [facility] (BEAKER) (test code [facility] [address], = 15[address]) [place] [address] 478: Safety Compliance Specialist/Techni faviola ID = [id number] for Will ia, Robe POCT-GLUCOSE [id number] 21:28:11 Test Item Value Reference Range Interpretation Comments POC-GLUCOSE METER 227 mg/dL 70-110 H : TESTED A T [facility] (BEAKER) (test code [facility] [address], = 1538) [place] [address] 478: Safety Compliance Specialist/Techni faviola ID = [id number] for Mekhi montejo [place] POCT-GLUCOSE [id number] 15:35:44 Test Item Value Reference Range Interpretation Comments POC-GLUCOSE METER 168 mg/dL 70-110 H : TESTED A T [facility] (BEAKER) (test code [facility] [address], = 1538) [place] [address] 478: Safety Compliance Specialist/Techni faviola ID = [id number] for Maribel Jimenez REPL CVC/TUNNELED W/O [id number] 11:59:00 [facility] 1950 Sex: FFINAL REPORT PROCEDURE: Tunneled central venous catheter exchange Procedural PersonnelAttending physician(s): Consuelo Ugarte physician(s): NoneResident physician(s): NoneAd[facility]mer[facility] provider(s): None Pre-procedure diagnosis: Malfunctioning catheterPost-procedure [...] a permanent image was stored. Catheter size (Turkish): 15.5Catheter flush: Heparin (100 units/mL) Abbie sureThe [...] the report as written. Signed: Vicki Ramirez [facility] Verified Date/Time: 01/10/2022 11:59:48 Reading Location: [facility] Radiology Reading Room POCT-GLUCOSE [id number] 11:32:33 Test Item Value Reference Range Interpretation Comments POC-GLUCOSE METER 105 mg/dL 70-110 : TESTED A T [facility] 1317 (BEAKER) (test code [address], = 1538) [facility] 77 478: Safety Compliance Specialist/Techni faviola ID = [id number] for Maribel Jimenez BASIC METABOLIC [id number] 04:51:32 Test Item Value Reference Range Interpretation [...] not appl icable for dialysis patien ts Safety Compliance Specialist ID - LITOOperator ID - LITOOperator ID - LITOOperator ID - LITOOperator ID - LITOOperator ID - LITOOperator ID - LITOOperator ID - LITOOperator ID - LITOOperator ID - [id number] 04:50:58 Test Item Value Reference Range Interpretation Comments MAGNESIUM (BEAKER) (test code = 2.0 mg/dL 1.5-3.0 627) Safety Compliance Specialist ID - LITOOperator ID - LITOOperator ID - LITOOperator ID - MARTÍN [id number] 04:48:19 Test Item Value Reference Range Interpretation Comments PHOSPHORUS (BEAKER) (test code = 3.9 mg/dL 2.5-4.5 604) Safety Compliance Specialist ID - [id number] 04:44:00 Test Item Value Reference Range Interpretation Comments PARTIAL THROMBOPLASTIN 51.7 seconds 23.0-35.0 H Final Information TIME (BEAKER) (test (Auto Ou tput) code = 760) CBC W/PLT COUNT & AUTO [id number] 04:24:30 Test Item Value Reference Range Interpretation [...] PERCENT (BEAKER) (test code = 2801) POCT-GLUCOSE [id number] 21:26:47 Test Item Value Reference Range Interpretation Comments POC-GLUCOSE METER 127 mg/dL 70-110 H : TESTED A T [facility] (BEAKER) (test code [facility], = 1538) [place] [address]: Safety Compliance Specialist/Techni faviola ID = [id number] for Libia Pop [id number] 20:08:11 Test Item Value Reference Range Interpretation Comments PARTIAL THROMBOPLASTIN 41.3 seconds 23.0-35.0 H Final Information TIME (BEAKER) (test (Auto Ou tput) code = 760) POCT-GLUCOSE [id number] 17:14:06 Test Item Value Reference Range Interpretation Comments POC-GLUCOSE METER 154 mg/dL 70-110 H : TESTED A T [facility] (BEAKER) (test code [facility], = 1538) [place] [address]: Safety Compliance Specialist/Techni faviola ID = [id number] for Aileen Loja POCT-GLUCOSE [id number] 11:55:38 Test Item Value Reference Range Interpretation Comments POC-GLUCOSE METER 153 mg/dL 70-110 H : TESTED A T [facility] (BEAKER) (test code [facility], = 1538) [place] [address]: Safety Compliance Specialist/Techni faviola ID = [id number] for Maribel Jimenez HEPATITIS B SURFACE [id number] 11:29:52 Test Item Value Reference Range Interpretation Comments HEPATITIS B SURFACE ANTIBODY 53.8 mIU/mL <8.0 H (BEAKER) (test code = 647) Safety Compliance Specialist ID - [id number] 10:04:36 Test Item Value Reference Range Interpretation Comments PARTIAL THROMBOPLASTIN 36.3 seconds 23.0-35.0 H Final Information TIME (BEAKER) (test (Auto Ou tput) code = 760) POCT-GLUCOSE [id number] 07:31:03 Test Item Value Reference Range Interpretation Comments POC-GLUCOSE METER 111 mg/dL 70-110 H : TESTED A T [facility] (BEAKER) (test code [facility] [address], = 1538) [facility] 77 478: Safety Compliance Specialist/Techni faviola ID = [id number] for Maribel Jimenez [id number] 06:13:46 Test Item Value Reference Range Interpretation Comments MAGNESIUM (BEAKER) (test code = 1.8 mg/dL 1.5-3.0 627) Safety Compliance Specialist ID - [id number] ID - [id number] ID - [id number] ID - [id number] METABOLIC [id number] 06:12:49 Test Item Value Reference Range Interpretation [...] not appl icable for dialysis patien ts Safety Compliance Specialist ID - [id number] ID - [id number] ID - [id number] ID - [id number] ID - [id number] ID - [id number] ID - CSMNLGSWZ488Udwlpfkf ID - [id number] ID - [id number] ID - [id number] 06:10:51 Test Item Value Reference Range Interpretation Comments PHOSPHORUS (BEAKER) (test code = 3.0 mg/dL 2.5-4.5 604) Safety Compliance Specialist ID - [id number] W/PLT COUNT & AUTO [id number] 05:49:35 Test Item Value Reference Range Interpretation [...] PERCENT (BEAKER) (test code = 2801) POCT-GLUCOSE [id number] 05:17:03 Test Item Value Reference Range Interpretation Comments POC-GLUCOSE METER 108 mg/dL 70-110 : TESTED A T [facility] (BEAKER) (test code [facility] [address], = 1538) [place] [address] 478: Safety Compliance Specialist/Techni faviola ID = [id number] for Amritakimjen rafalabelardofritz [id number] 01:14:37 Test Item Value Reference Range Interpretation Comments PARTIAL THROMBOPLASTIN 37.5 seconds 23.0-35.0 H Final Information TIME (BEAKER) (test (Auto Ou tput) code = 760) HEPATITIS B SURFACE [id number] 18:36:43 Test Item Value Reference Range Interpretation Comments HEPATITIS B SURFACE ANTIGEN (2) Nonreactive Nonreactive (BEAKER) (test code = 2585) Safety Compliance Specialist ID - [id number] 17:00:29 Test Item Value Reference Range Interpretation Comments POC-GLUCOSE METER 131 mg/dL 70-110 H : TESTED A T [facility] (BEAKER) [facility] [address] [facility] [address] [place] [address] 478: Safety Compliance Specialist/Techni faviola ID = [id number] for Migel Holt [id number] 16:38:44 Test Item Value Reference Range Interpretation Comments PARTIAL THROMBOPLASTIN 42.5 seconds 23.0-35.0 H Final Information TIME (BEAKER) (test (Auto Ou tput) code = 760) POCT-GLUCOSE [id number] 12:29:39 Test Item Value Reference Range Interpretation Comments POC-GLUCOSE METER 168 mg/dL 70-110 H : TESTED A T [facility] (BEAKER) (test code [address], = 1538) [place] [address] 478: Safety Compliance Specialist/Techni faviola ID = [id number] for Migel Holt POCT-GLUCOSE [id number] 08:10:36 Test Item Value Reference Range Interpretation Comments POC-GLUCOSE METER 136 mg/dL 70-110 H : TESTED A T [facility] (BEAKER) (test code [address], = 1538) [place] [address] 478: Safety Compliance Specialist/Techni faviola ID = [id number] for Migel Holt BASIC METABOLIC [id number] 06:18:43 Test Item Value Reference Range Interpretation [...] not appl icable for dialysis patien ts Safety Compliance Specialist ID - LITOOperator ID - LITOOperator ID - LITOOperator ID - LITOOperator ID - LITOOperator ID - LITOOperator ID - LITOOperator ID - LITOOperator ID - LITOOperator ID - [id number] 06:17:29 Test Item Value Reference Range Interpretation Comments MAGNESIUM (BEAKER) (test code = 1.6 mg/dL 1.5-3.0 627) Safety Compliance Specialist ID - LITOOperator ID - LITOOperator ID - LITOOperator ID - MARTÍN HEMOGLOBIN [id number] 06:16:10 Test Item Value Reference Range Interpretation Comments HEMOGLOBIN A1C (BEAKER) (test code = 8.5 % 4.3-6.1 H 368) Safety Compliance Specialist ID - [id number] 06:14:08 Test Item Value Reference Range Interpretation Comments PHOSPHORUS (BEAKER) (test code = 5.0 mg/dL 2.5-4.5 H 604) Safety Compliance Specialist ID - [id number] 05:59:43 Test Item Value Reference Range Interpretation Comments PARTIAL THROMBOPLASTIN 45.4 seconds 23.0-35.0 H Final Information TIME (BEAKER) (test (Auto Ou tput) code = 760) CBC W/PLT COUNT & AUTO [id number] 05:48:29 Test Item Value Reference Range Interpretation [...] H PERCENT (BEAKER) (test code = 2801) [id number] 21:22:07 Test Item Value Reference Range Interpretation Comments PARTIAL THROMBOPLASTIN 26.5 seconds 23.0-35.0 Final Information TIME (BEAKER) (test (Auto Ou tput) code = 760) POCT-GLUCOSE [id number] 21:12:37 Test Item Value Reference Range Interpretation Comments POC-GLUCOSE METER 136 mg/dL 70-110 H : TESTED A T [facility] (BEAKER) ([facility] [address] [facility] [address] 77 478: Safety Compliance Specialist/Techni faviola ID = [id number] for esperanza Abraham POC [id number] 16:00:00 Test Item Value Reference Range Interpretation Comments POC glucose (test code = 158 mg/dL 65-99 H Ope rator Name: [id number]) Bob tilley ID: [id number] Lab Interpretation (test Abnormal code = 94162-2) [facility] [id number] 16:00:00 Test Item Value Reference Range Interpretation Comments POC glucose (test code = 158 mg/dL 65-99 H Ope rator Name: [id number]) Bob tilley ID: [id number] Lab Interpretation (test Abnormal code = 73821-9) [facility] pathology [id number] 15:05:25 Test Item Value Reference Range Interpretation Comments Case number (test code = [id number]) Surgical pathology See link below for report (test code = PDF Lab Report 2255) Result status (test code This is Final Report = [id number]) for [id number] [facility] pathology [id number] 15:05:25 Test Item Value Reference Range Interpretation Comments Case number (test code = [id number]) Surgical pathology See link below for report (test code = PDF Lab Report 2255) Result status (test code This is Final Report = [id number]) for [id number] [place] [address] [id number] 12:23:18 Test Item Value Reference Range Interpretation [...] of 12-AUG-2021 06:02,-No significant change was found- [place] [address] [id number] 12:23:18 Test Item Value Reference Range Interpretation [...] of 12-AUG-2021 06:02,-No significant change was found- [facility] ED Preliminary Interpretation - Not an [id number] 21:23:51 Test Item Value Reference Range Interpretation Comments VALERIANO (test code = VALERIANO) Marley Cronin NP-C 09/07/2021 9:29 [facility] Preliminary Interpretation - Not an OrderPerformed by: Marley Cronin NP-CAuthorized by: Trinidad Menard MD ECG reviewed by ED Physician in the absence of a cost analyst: no Previous ECG: Previous ECG: UnavailableInterpretat ion: Interpretation: abnormal Rate: ECG rate: 80 ECG rate assessment: normal Rhythm: Rhythm: paced Pacing: Type of pacing: VentricularEctopy: Ectopy: none QRS: QRS axis: Normal QRS intervals: NormalConduction: Conduction: normal ST segments: ST segments: Normal Lab Interpretation Abnormal (test code = 70739-9) [facility] ED Preliminary Interpretation - Not an [id number] 21:23:51 Test Item Value Reference Range Interpretation Comments VALERIANO (test code = VALERIANO) Marley Cronin NP-C 09/07/2021 9:29 [facility] Preliminary Interpretation - Not an OrderPerformed by: Marley rConin NP-CAuthorized by: Trinidad Menard MD ECG reviewed by ED Physician in the absence of a cost analyst: no Previous ECG: Previous ECG: UnavailableInterpretat ion: Interpretation: abnormal Rate: ECG rate: 80 ECG rate assessment: normal Rhythm: Rhythm: paced Pacing: Type of pacing: VentricularEctopy: Ectopy: none QRS: QRS axis: Normal QRS intervals: NormalConduction: Conduction: normal ST segments: ST segments: Normal Lab Interpretation Abnormal (test code = 23669-1) [facility]-CoV-2 (COVID-19) RNA [Presence] in Respiratory specimen by LANG with probe [id number] 13:39:12 Test Item Value Reference Range Interpretation Comments SARS-CoV-2 (COVID-19) RNA Not detected [Presence] in Respiratory specimen by LANG with probe detection (test code = 06647-8) Whether patient is employed in a Unknown healthcare setting (test code = 21977-4) Whether the patient has symptoms Unknown related to condition of interest (test code = 34581-0) Whether the patient was Unknown hospitalized for condition of interest (test code = 31726-6) Whether the patient was admitted Unknown to intensive care unit (ICU) for condition of interest (test code = 21335-2) Whether patient resides in a Unknown congregate care setting (test code = 21237-3) status (test code = Unknown 59989-3) Date and time of symptom onset Unknown (test code = 11226-9) [facility] myocardial [id number] 02:36:07 Test Item Value Reference Range Interpretation Comments Target HR (test code 148.00 bpm = 8189721238) Resting HR (test 83 BPM code = 2303763828) Resting BP (test 178/79 mmHg code = 9114314176) Percent HR (test 54.05 % code = 9422552142) Post Peak HR (test 80 bpm code = 7649193118) Post Peak BP (test 161/77 mmHg code = 7680313351) Radiology Study observation (narrative) (test code = 23707-2) VALERIANO (test code = Study Quality: good. [...] reduced. [facility] stress [id number] 22:06:40 Test Item Value Reference Range Interpretation Comments Resting BP (test code = 0973814455) Protocol Name (test LEXISCAN code = 6142863260) Time in Exercise 00:01:00 Phase (test code = 4664479961) Max Systolic BP (test code = 8418663365) Max Diastolic BP (test code = 7997127531) Max Heart Rate (test code = 7304936613) Max Predicted Heart Rate (test code = 9994516252) Test Indication (test code = 4949264320) Arrhy During Ex (test code = 3591637901) ECG Interp Before EX (test code = 0138486127) ECG Interp During Ex (test code = 0437820857) Ex Summary Comment (test code = 2537319979) Overall HR Response to Exercise (test code = 9794187179) Overall BP Response To Exercise (test code = 3096436388) Reason for Termination (test code = 1657215697) Stress Test Waveform interpreted in Impression (test code report associated with = 7794932218) image study. No interpretation is provided as part of this Stress ECG report.-Electronically Signed By Adam HOLLIDAY, [facility] ([id number]), book or script editor Daysi Chapman ([id number]) on 08/02/2021 5:06:37 PM [facility] stress [id number] 22:06:40 Test Item Value Reference Range Interpretation Comments Resting BP (test code = 7658977115) Protocol Name (test LEXISCAN code = 4951465562) Time in Exercise 00:01:00 Phase (test code = 3151621488) Max Systolic BP (test 178 code = 5884953946) Max Diastolic BP 79 (test code = 5478656337) Max Heart Rate (test 81 code = 9186659599) Max Predicted Heart 148 Rate (test code = 6972984444) Test Indication (test code = 0910399010) Arrhy During Ex (test code = 4570445784) ECG Interp Before EX (test code = 8587585934) ECG Interp During Ex (test code = 1278767258) Ex Summary Comment (test code = 4923667791) Overall HR Response to Exercise (test code = 7413546177) Overall BP Response To Exercise (test code = 7593830624) Reason for Termination (test code = 4651128526) Stress Test Waveform interpreted in Impression (test code report associated with = 8754092046) image study. No interpretation is provided as part of this Stress ECG report.-Electronically Signed By Adam HOLLIDAY [facility] ([id number]), book or script editor Daysi Chapman ([id number]) on 08/02/2021 5:06:37 PM [facility], (w Contrast, Strain and 3D if needed)2021-08-01 17:44:46 Test Item Value Reference Range Interpretation Comments AoV Area, Vmax (test 2.41 cm2 code = 9606582308) AoV Area, VTI (test 2.36 cm2 code = 6754844980) AoV Mean PG (test 5.59 mmHg code = 1375007322) AoV Peak PG (test 11.08 mmHg code = 3214799513) AoV Vmax (test code 1.77 m/s = 2178772393) AoV VTI (test code = 0.30 m 2562548809) IVS,d (test code = 1.11 cm 3671770380) LV,d (test code = 5.57 cm 2707268023) LV EF,A2C (test code 44.91 % = 1921241447) LV EF,A4C (test code 42.43 % = 7926947214) LV EF,BP (test code 42.76 % = 2463729106) Santana Demotte,d A2C (test 7.79 cm code = 8587192859) Santana Demotte,d A4C (test 7.59 cm code = 5183682398) Santana Demotte,s A2C (test 7.10 cm code = 2967850141) Santana Demotte,s A4C (test 6.58 cm code = 9160593770) LV,s (test code = 4.42 cm 5070792374) LV SV,A2C (test code 59.18 % = 3196535269) LV SV,A4C (test code 64.42 % = 0615801648) LV Vol,d A2C (test 131.77 mL code = 4846957243) LV Vol,d A4C (test 151.81 ml code = 0865496153) LV Vol,d BP (test 142.79 ml code = 2979833533) LV Vol,s A2C (test 72.60 mL code = 8801729792) LV Vol,s A4C (test 87.39 ml code = 8426610925) LV Vol,s BP (test 81.72 nl code = 3101503536) LVOT Diam,S (test 2.08 cm code = 5262964687) LVOT Vmax (test code 1.16 m/s = 7690151042) LVOT VTI (test code 0.21 m = 2792611341) LVPWD,d (test code = 1.05 cm 4836314996) TR Vpeak (test code 2.66 mm/s = 6077168373) AR Press Half Time 504.65 ms (test code = 0733997871) TR pk grad (test 27.27 mmHg code = 6342402408) MR Vmax (test code = 6.10 m/s 0983915407) MR peak grad (test 121.70 mmHg code = 7283878598) E wave decelartion 149.68 msec time (test code = 1505242209) MV Peak E Des (test 1.46 m/s code = 6958625733) LVOT stroke volume 0.71 cm3 (test code = 7216572882) AV LVOT peak 5.36 mmHg gradient (test code = 1155064525) LV SYS VOL (test 88.60 ml code = 8781956348) LV THOMPSON VOL (test 151.60 ml code = 3547492146) LA area s A4C (test 35.87 cm2 code = 4670636882) LV SV Teich 2D (test 63.00 ml code = 6664985815) LVOT SI (test code = 38.28 ml/m2 8264868021) AoV Cusp sep (test 1.72 code = 2905463235) AoV Vmn (test code = 1.10 4350062328) IVS s 2D (test code 1.72 = 6352897276) AR slope (test code 2.59 = 8778681305) Ar Vmax (test code = 3.99 5182555452) LA Ao Ratio Mmode 2.07 (test code = 6586896205) LVOT Vmn (test code 0.80 = 6299192675) Pt Size (test code = 162.56 6725871383) Pt Wt (test code = 81.19 2896806252) PV AT (test code = 94.20 msec 4703159984) LVOT mean grad (test 2.88 mmHg code = 1605255884) AR DT (test code = 1541.52 msec 7167570304) AR pk grad (test 58.41 mmHg code = 5411364142) LVPW s PLAX (test 1.41 cm code = 4940492003) MV Decel slope (test 9.79 m/s2 code = 6799630630) LA Vol MOD A4C (test 124.31 ml code = 9375363173) Velocity Ratio 0.66 m/s (V1/V2) (test code = 4689) EF (test code = 41.56 % 4872754346) LVOT area (test code 3.40 cm2 = 1383577652) LVOT VTI (CM) (test 21.00 cm code = 4698018850) RA pressure (test 15.00 mmHg code = 8249448111) LA Vol 4C (test code 124.00 ml = 8743856481) RVSP (test code = 43.38 mmHg 8811166325) LA diam s (test code 5.50 cm = 6509775948) Aortic Root (test 2.63 cm code = 5594276951) NJ End Thompson Grad 11.73 (test code = 9368099664) NJ End Diat Des 1.71 (test code = 4710479076) AR maxPG (test code 63.74 = 2130228098) D E excurs (test 2.00 code = 9770306524) E f slope (test code 0.08 = 8040474631) E prime lat (test 0.06 code = 2343124131) E keaton sept (test 0.09 code = 0658933898) PV acc T slope (test 6.80 code = 2433210619) CONDE BP EF (test 43.00 % code = 8996446206) LA VOL 2C (test code 138.00 ml = 0916553248) VALERIANO (test code = The left ventricle [...] of aortic valve stenosis.PericardiumNo pericardial effusion seen. [facility]-CoV-2 (COVID-19) RNA [Presence] in Respiratory specimen by LANG with probe [id number] 23:11:03 Test Item Value Reference Range Interpretation Comments SARS-CoV-2 (COVID-19) RNA Not detected [Presence] in Respiratory specimen by LANG with probe detection (test code = 87687-1) Whether patient is employed in a Unknown healthcare setting (test code = 30426-4) Whether the patient has symptoms Unknown related to condition of interest (test code = 86408-1) Whether the patient was Unknown hospitalized for condition of interest (test code = 86764-0) Whether the patient was admitted Unknown to intensive care unit (ICU) for condition of interest (test code = 96130-4) Whether patient resides in a Unknown congregate care setting (test code = 14457-7) status (test code = Unknown 02649-6) Date and time of symptom onset Unknown (test code = 13672-7) [facility] [Presence] in Respiratory specimen by LANG with probe [id number] 11:45:59 Test Item Value Reference Range Interpretation Comments SARS-CoV-2 (COVID-19) RNA Not detected Not-Detected [Presence] in Respiratory specimen by LANG with probe detection (test code = 31061-6) Whether patient is employed in a healthcare setting (test code = 29107-5) Whether the patient has symptoms related to condition of interest (test code = 79725-5) Patient was hospitalized because of this condition (test code = 17133-1) Whether the patient was admitted to intensive care unit (ICU) for condition of interest (test code = 89930-8) Whether patient resides in a congregate care setting (test code = 59304-0) [facility] [Presence] in Respiratory specimen by LANG with probe [id number] 05:28:15 Test Item Value Reference Range Interpretation Comments SARS-CoV-2 (COVID-19) RNA Not detected Not-Detected [Presence] in Respiratory specimen by LANG with probe detection (test code = 45754-6) [facility] RNA [Presence] in Respiratory specimen by LANG with probe [id number] 23:52:31 Test Item Value Reference Range Interpretation Comments SARS-CoV-2 (COVID-19) RNA Not detected Not-Detected [Presence] in Respiratory specimen by LANG with probe detection (test code = 80310-8) [facility] Notes Date/Time Note Provider Source 2022-01-09 12:30:04-00:00 NATACHA SCHULZ [facility] LATRICIA LUBIN FACILITY: [facility] Billing #: [id number] Room: [address] [place] [address] MR #: [id number] : 1950 DATE OF ADMISSION: 01/07/2022 DATE OF CONSULTATION: 01/09/2022 REQUESTING PHYSICIAN: WHARF LABOURER: Natacha Schulz MD SUBJECTIVE: Ms. Latricia Lubin is a 71-year-old fem opal with past medical history significant for hypertension, en d-stage renal disease, and diabetes who currently gets dialyze d Monday, , Monday via dialysis catheter, also h as a history of DVT in the right lower extremity. She was admitt ed to the hospital because of malfunction of the tunneled dialysis catheter along with the UTI. She was transferred here for evaluation and placement of catheter. REVIEW OF SYSTEMS: No chest pain, shortness of breath, back pain, a bdominal pain, nausea, or vomiting. All other review of systems are negative. PAST MEDICAL HISTORY: Significant for end-stage renal disease, diabetes, and hypertension. PAST SURGICAL HISTORY: Noncontributory. MEDICATIONS: Please see attached medication [address]. ALLERGIES: NO KNOWN DRUG ALLERGIES. PHYSICAL EXAMINATION: GENERAL: The patient is afebrile. VITAL SIGNS: Stable. HEAD AND NECK: Pupils equal, round, reactive to light accommodation. Extraocular movements intact. CARDIOVASCULAR: Regular rate and rhythm. PULMONARY: Clear to consultation. ABDOMEN: Soft, nondistended, nontender. EXTREMITIES: She has a tunneled dialysis cathete r present that is malfunctioning and they are treating with alt eplase. IMPRESSION: Malfunctioning tunneled dialysis cat heter. PLAN: Plan is for tunneled dialysis catheter exc hange. We will hopefully try to get this done for her al ambrosio. DEVI/MODL /[id number]
[2022-10-06 09:12] LABS: Absolute Lymphocytes (CBC) 1.3 K/uL (0.7-4.9); Hematocrit 30.7 % (36.0-45.0); Lymphocytes % 21.3 % (15.3-44.8); MCV 81.4 fL (80-100); MPV 7.1 fL (7.6-11.3); RBC Red Blood Cell Count 3.77 M/uL (3.86-4.86)
[2022-10-06 09:43] LABS: Magnesium 1.9 mg/dL (1.6-2.4); Potassium 4.2 mEq/L (3.5-5.1)
--- NOTE | 2022-10-06 09:56 | RAD REPORT ---
EXAM DESCRIPTION: Bernabe Single View10/06/2022 9:46 am CLINICAL HISTORY: Chest pain COMPARISON: September 29, 2022 FINDINGS: Upper lobe vessels are prominent indicative of pulmonary venous hypertension Lungs appear clear Heart is moderately enlarged. Pacemaker leads in place
--- NOTE | 2022-10-06 12:38 | ER ---
Nurse's Notes [facility] Name: Latricia Cadet Age: 71 yrs Sex: Female : 1950 Arrival Date: 10/06/2022 Time: 08:39 Bed 20 Private MD: Diagnosis: Chest pain, unspecified Presentation: 10/06 08:47 Chief complaint: EMS states: cx pain and difficulty breathing that began this morning. kc6 pt is due for dialysis today at 11am, T, TH, Sat. Coronavirus screen: Vaccine status: Patient reports receiving the 2nd dose of the covid vaccine. At this time, the client does not indicate any symptoms associated with coronavirus-19. Ebola Screen: No symptoms or risks identified at this time. Initial Sepsis Screen: Does the patient meet any 2 criteria? No. Patient's initial sepsis screen is negative. Does the patient have a suspected source of infection? No. Patient's initial sepsis screen is negative. Risk Assessment: Do you want to hurt yourself or someone else? Patient reports no desire to harm self or others. Onset of symptoms was October 06, 2022. 08:47 Method Of Arrival: EMS: [facility] 08:47 Acuity: JAKE 3 kc6 Triage Assessment: 08:49 General: Appears in no apparent distress. comfortable, Behavior is calm, cooperative, kc6 appropriate for age, quiet. Pain: Complains of pain in chest Pain currently is 10 out of 10 on a pain scale. EENT: No signs and/or symptoms were reported regarding the EENT system. Neuro: Ferguson Agitation-Sedation Scale (RASS): 0 - Alert and Calm Level of Consciousness is awake, alert, obeys commands, Oriented to person, place, time, situation, Appropriate for age. Cardiovascular: Heart tones S1 S2 present Capillary refill < 3 seconds Rhythm is sinus rhythm Dialysis shunt: in the right arm, with palpable thrill, with auscultated bruit, with no erythema, with no edema, no bleeding noted. Respiratory: Reports shortness of breath Airway is patent Trachea midline Respiratory effort is even, unlabored, Respiratory pattern is regular, symmetrical. GI: No signs and/or symptoms were reported involving the gastrointestinal system. : No signs and/or symptoms were reported regarding the genitourinary system. Derm: No signs and/or symptoms reported regarding the dermatologic system. Skin is intact, Skin is pink, warm \T\ dry. Musculoskeletal: No signs and/or symptoms reported regarding the musculoskeletal system. Circulation, motion, and sensation intact. Capillary refill < 3 seconds, Range of motion: intact in all extremities. Historical: - Allergies: 08:49 No Known Allergies; kc6 - PMHx: 08:49 angina pectoris; CHF; COPD; Diabetes - NIDDM; dialysis T, TH, Sat.; heart attack; kc6 Hypertension; insomnia; kidney disease; Rheumatoid Arthritis; Sleep Apnea; - PSHx: 08:49 HD Fistula - Right arm; hysterectomy; pacemaker; kc6 - Immunization history:: Client reports receiving the 2nd dose of the Covid vaccine, Flu vaccine is up to date. - Social history:: Smoking status: Patient denies any tobacco usage or history of. Screenin:51 [facility] ED Fall Risk Assessment (Adult) History of falling in the last 3 months, kc6 including since admission No falls in past 3 months (0 pts) Confusion or Disorientation No (0 pts) Intoxicated or Sedated No (0 pts) Impaired Gait No (0 pts) Mobility Assist Device Used No (0 pt) Altered Elimination No (0 pt) Score/Fall Risk Level 0 - 2 = Low Risk Oriented to surroundings, Maintained a safe environment, Educated pt \T\ family on fall prevention, incl call for assistance when getting out of bed, Assessed \T\ reinforced patient's understanding of fall precautions, Provided non-skid footwear, Used ambulatory aids as needed (educated on \T\ assisted with). Abuse screen: Denies threats or abuse. Denies injuries from another. Nutritional screening: No deficits noted. Tuberculosis screening: No symptoms or risk factors identified. Assessment: 08:52 Reassessment: please see triage assessment. kc6 09:00 Reassessment: Patient appears in no apparent distress at this time. Patient is alert, eh3 oriented x 3, equal unlabored respirations, skin warm/dry/pink. Pain: Pain does not radiate. Pain began 2 hours ago. 10:00 Reassessment: Patient appears in no apparent distress at this time. Patient and/or eh3 family updated on plan of care and expected duration. Pain level reassessed. Patient is alert, oriented x 3, equal unlabored respirations, skin warm/dry/pink. 11:00 Reassessment: Patient appears in no apparent distress at this time. Patient and/or [facility] family updated on plan of care and expected duration. Pain level reassessed. Patient is alert, oriented x 3, equal unlabored respirations, skin warm/dry/pink. Spoke with daughter on phone, pt gave verbal consent, provided update on today's care plan. 12:00 Reassessment: Patient appears in no apparent distress at this time. Patient and/or [facility] family updated on plan of care and expected duration. Pain level reassessed. Patient is alert, oriented x 3, equal unlabored respirations, skin warm/dry/pink. 12:53 Reassessment: Pt discharged by provider but awaiting transportation to go directly to [facility] dialysis. 13:00 Reassessment: Patient appears in no apparent distress at this time. No changes from [facility] previously documented assessment. Patient and/or family updated on plan of care and expected duration. Pain level reassessed. Patient is alert, oriented x 3, equal unlabored respirations, skin warm/dry/pink. Vital Signs: 08:47 BP 133 / 56; Pulse 80; Resp 21 S; Pulse Ox 99% on R/A; Weight 74.84 kg (M); Height 5 [facility] ft. 4 in. (R); Pain 10/10; 10:00 BP 139 / 63; Pulse 80; Resp 18; Pulse Ox 95% on R/A; eh3 11:00 BP 134 / 54; Pulse 80; Resp 14; Pulse Ox 95% on R/A; eh3 12:00 BP 137 / 62; Pulse 80; Resp 19; Pulse Ox 98% on R/A; 3 13:02 BP 126 / 79; Pulse 80; Resp 19 S; Pulse Ox 96% on R/A; kc6 08:47 Body Mass Index 28.32 (74.84 kg, 162.56 cm) kc6 08:47 Pain Scale: Adult [facility] ED Course: 08:47 Patient arrived in ED. kc6 08:48 Celi Castañeda FNP-C is PHCP. kb 08:48 Migel Rose MD is Attending Physician. kb 08:49 Triage completed. kc6 08:49 Arm band placed on. kc6 08:51 Patient has correct armband on for positive identification. Bed in low position. Call [facility] light in reach. Side rails up X2. Client placed on continuous cardiac and pulse oximetry monitoring. NIBP monitoring applied. environmental monitoring technician on. 08:52 Gemma Navarro, RN is Primary Nurse. kc6 08:52 Patient maintains SpO2 saturation greater than 95% on room air. kc6 09:00 Report received from Gemma Navarro RN. 3 09:09 Inserted saline lock: 20 gauge in left wrist, using aseptic technique. Blood collected. kc6 09:48 XRAY Chest (1 view) In Process Unspecified. EDMS 14:00 No provider procedures requiring assistance completed. IV discontinued, intact, kc6 bleeding controlled, No redness/swelling at site. Pressure dressing applied. Administered Medications: No medications were administered Medication: 14:00 VIS not applicable for this client. kc6 Outcome: 12:37 Discharge ordered by . kb 14:00 Discharged to home via wheelchair, with family. kc6 14:00 Condition: stable 14:00 Discharge instructions given to patient, Instructed on discharge instructions, follow up and referral plans. Demonstrated understanding of instructions, follow-up care. 14:00 Patient left the ED. kc6 Signatures: Dispatcher [employer] EDMT Celi Castañeda, SOCIAL INSURANCE SPECIALIST-C SOCIAL INSURANCE SPECIALIST-Ngozi Barrera RN RN 3 Gemma Navarro, RN RN kc6 Corrections: (The following items were deleted from the chart) 10:14 09:00 Pain: Pain does not radiate. Pain began 1 day ago. 3 3
--- NOTE | 2022-10-06 12:38 | EDPHYS ---
Physician Documentation [facility] Name: Latricia Cadet Age: 71 yrs Sex: Female : 1950 Arrival Date: 10/06/2022 Time: 08:39 Bed 20 Private MD: ED Physician Migel Rose HPI: 10/06 11:09 This 71 yrs old Female presents to ER via EMS with complaints of Chest Pain, Breathing kb Difficulty. 11:09 The patient or guardian reports chest pain that is located primarily in the chest kb diffusely. Onset: this morning. The pain does not radiate. Associated signs and symptoms: Pertinent positives: shortness of breath. The chest pain is described as dull. Duration: The patient or guardian reports a single episode, that is still ongoing. Modifying factors: The symptoms are alleviated by nothing. the symptoms are aggravated by nothing. Severity of pain: At its worst the pain was mild moderate in the emergency department the pain is unchanged. The patient has experienced similar episodes in the past. The patient has been recently seen at the [facility] Emergency Department. Pt reports she woke up with chest pain and shortness of breath. Denies cough, fever. . Historical: - Allergies: 08:49 No Known Allergies; kc6 - PMHx: 08:49 angina pectoris; CHF; COPD; Diabetes - NIDDM; dialysis T, TH, Sat.; heart attack; kc6 Hypertension; insomnia; kidney disease; Rheumatoid Arthritis; Sleep Apnea; - PSHx: 08:49 HD Fistula - Right arm; hysterectomy; pacemaker; kc6 - Immunization history:: Client reports receiving the 2nd dose of the Covid vaccine, Flu vaccine is up to date. - Social history:: Smoking status: Patient denies any tobacco usage or history of. ROS: 11:09 Constitutional: Negative for fever, chills, and weight loss. kb 11:09 Cardiovascular: Positive for chest pain. 11:09 Respiratory: Positive for shortness of breath. 11:09 All other systems are negative. Exam: 11:09 Constitutional: This is a well developed, well nourished patient who is awake, alert, kb and in no acute distress. Head/Face: Normocephalic, atraumatic. ENT: Moist Mucous membranes Cardiovascular: Regular rate and rhythm with a normal S1 and S2. No gallops, murmurs, or rubs. No pulse deficits. Respiratory: Respirations even and unlabored. No increased work of breathing. Talking in full sentences Abdomen/GI: Soft, non-tender. No distention Skin: Warm, dry with normal turgor. Normal color. MS/ Extremity: Pulses equal, no cyanosis. Neurovascular intact. Full, normal range of motion. Neuro: Awake and alert, GCS 15, oriented to person, place, time, and situation. Moves all extremities. Normal gait. 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 kb Vital Signs: 08:47 BP 133 / 56; Pulse 80; Resp 21 S; Pulse Ox 99% on R/A; Weight 74.84 kg (M); Height 5 kc6 ft. 4 in. (R); Pain 10/10; 10:00 BP 139 / 63; Pulse 80; Resp 18; Pulse Ox 95% on R/A; eh3 11:00 BP 134 / 54; Pulse 80; Resp 14; Pulse Ox 95% on R/A; eh3 12:00 BP 137 / 62; Pulse 80; Resp 19; Pulse Ox 98% on R/A; eh3 13:02 BP 126 / 79; Pulse 80; Resp 19 S; Pulse Ox 96% on R/A; kc6 08:47 Body Mass Index 28.32 (74.84 kg, 162.56 cm) [facility] 08:47 Pain Scale: Adult kc6 MDM: 08:48 Patient medically screened. kb 10:21 Data reviewed: vital signs, nurses notes. Consideration of Admission/Observation kb Escalation of care including admission/observation considered. admission considered for chest pain, but pt does not want to stay in the hospital. Pt is awake, alert, oriented x4 and has decision making capability. Discussed at least doing a repeat troponin before she goes home and pt is agreeable to that. . 11:10 Differential diagnosis: abnormal EKG, acute myocardial infarction, coronary artery kb disease chest wall pain, pneumonia. Historians other than the Patient: EMS: [facility]. 13:22 Counseling: I had a detailed discussion with the patient and/or guardian regarding: the kb historical points, exam findings, and any diagnostic results supporting the discharge/admit diagnosis, lab results, radiology results, the need for further work-up and treatment in the hospital. Refusal of service: The patient/guardian displays adequate decision making capability and despite a detailed discussion of alternatives, benefits, risks, and consequences refuses: Admission to the hospital for further work-up and treatment. ED course: Pt will be discharged and will go to dialysis now. Jennifer contacted and is able to completed her dialysis upon discharge from here. . 10/06 08:48 Order name: Basic Metabolic Panel; Complete Time: 09:46 kb 10/06 08:48 Order name: CBC with Diff; Complete Time: 09:21 kb 10/06 08:48 Order name: Magnesium; Complete Time: 09:46 kb 10/06 08:48 Order name: NT PRO-BNP; Complete Time: 09:46 kb 10/06 08:48 Order name: Troponin HS; Complete Time: 09:46 kb 10/06 11:48 Order name: Troponin High Sensitivity; Complete Time: 12:36 kb 10/06 08:48 Order name: XRAY Chest (1 view); Complete Time: 10:06 kb 10/06 08:48 Order name: EKG; Complete Time: 08:49 kb 10/06 08:48 Order name: Cardiac monitoring; Complete Time: 08:52 kb 10/06 08:48 Order name: EKG - Nurse/Tech; Complete Time: 08:59 kb 10/06 08:48 Order name: IV Saline Lock; Complete Time: 09:03 kb 10/06 08:48 Order name: Labs collected and sent; Complete Time: 09:03 kb 10/06 08:48 Order name: O2 Per Protocol; Complete Time: 08:52 kb 10/06 08:48 Order name: O2 Sat Monitoring; Complete Time: 08:52 kb Administered Medications: No medications were administered Disposition: 14:20 Co-signature as Attending Physician, Migel Rose MD I reviewed the patient's care rt provided by the Advanced Practice Provider and agree with the diagnosis and treatment plan. Disposition Summary: 10/06/22 12:37 Discharge Ordered Location: Home kb Condition: Stable kb Diagnosis - Chest pain, unspecified kb Followup: kb - With: Emergency Department - When: As needed - Reason: Worsening of condition Followup: kb - With: Private Physician - When: 2 - 3 days - Reason: Recheck today's complaints, Continuance of care, Re-evaluation by your physician Discharge Instructions: - Discharge Summary Sheet kb - Nonspecific Chest Pain, Adult, [id number] kb Forms: - Medication Reconciliation Form kb - Thank You Letter kb - Antibiotic Education kb - Prescription Opioid Use kb Signatures: Dispatcher [employer] Celi Veliz FNP-C FNP-Gemma Krause, RN RN kc6 Migel Rose MD MD rt
[2022-10-06 14:27] VITALS: BP 126/79; O2SAT 96
--- NOTE | 2022-10-07 13:28 | EKG ---
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
== END 2022-10-06 14:00 | disposition home or self-care (01) ==
LOC: ER 08:39
DX: R07.89 Other chest pain (principal); E11.22 Type 2 diabetes mellitus with diabetic chronic kidney disease; N18.6 End stage renal disease; Z99.2 Dependence on renal dialysis; Z95.0 Presence of cardiac pacemaker
CPT/HCPCS: 36415; 71045; 80048; 83735; 83880; 84484; 85025; 93005; 99285

== ENCOUNTER 2022-11-16 21:18 | Inpatient (IN) | payer OTHER ==
--- OUTSIDE RECORDS SUMMARY | 2022-11-16 21:29 | XMS REPORT | Continuity of Care Document ---
:1950 Author Organization [facility] t Address [address] [place] [address] Care Team Providers Name Role Phone Pcp, Patient Does Not Have A Primary Care Physician [phone] [phone] [id number] Attending Clinician Unavailable Greg Fuentes Attending Clinician Unavailable Anirudh Philippe Rahil Attending Clinician Unavailable Doctor Unassigned, Deridder Attending Clinician Unavailable Luc Alvarez Attending Clinician Alannah Renner MD Attending Clinician ANNALEE BEY Attending Clinician Unavailable Annalee Bey MD Attending Clinician Mauro Mendoza MD Attending Clinician ALANNAH RENNER Attending Clinician Unavailable Derian HOLLIDAY, Trinidad Reza Attending Clinician Thao HOLLIDAY, Corrine Attending Clinician Edwin Kaur MD Attending Clinician [phone] John HOLLIDAY, Shanon Vidal Attending Clinician [phone] Tim HOLLIDAY, Tammy Thompson Attending Clinician Armen HOLLIDAY, Edwin Attending Clinician Scot HOLLIDAY, Tasneem Attending Clinician Savannah HOLLIDAY, Annalee Attending Clinician Amaury HOLLIDAY, Leodan Attending Clinician Josemanuel Vences MD Attending Clinician Andre Navarro Attending Clinician Juan BETH, Grazyna Magana Attending Clinician Abbie HOLLIDAY, Joanna Attending Clinician Provider, Unknown Attending Clinician Unavailable Zulema Donald DO Attending Clinician Michaela Attending Clinician Unavailable MD CORRINE OSUNA Attending Clinician Unavailable DAVID HIGUERA Attending Clinician Unavailable SHAKEEL NARANJO Attending Clinician Unavailable SARAI SANDRA Attending Clinician Unavailable [id number] Admitting Clinician Unavailable Radha Cabrera Admitting Clinician Unavailable Anirudh Philippe Rahil Admitting Clinician Unavailable SHIRLEY PARKS Admitting Clinician Unavailable CORRINE OSUNA Admitting Clinician Unavailable TAMMY DUMONT Admitting Clinician Unavailable Michaela Admitting Clinician Unavailable MD CORRINE OSUNA Admitting Clinician Unavailable SARAI SANDRA Admitting Clinician Unavailable Payers Payer Name Policy Type Policy Number Effective Date Expiration Date S gus [facility] [id number] 2021 (NON-CONTRACTED) 00:00:00 [facility] [id number] 2021 [facility] 00:00:00 [facility] [id number] [facility] - [id number] [facility] (O) Problems Condition Condition Condition Status Onset Resolution Last Treating Co mments Source Name Details Category Date Date Treatment Clinician Date Complicati Complicati Disease Active [facility] Me dical with with 00 Center dialysis dialysis catheter catheter Diarrhea Diarrhea Disease Active Metho di 09-16 st 00:00: Hospita 00 l Chronic Chronic Disease Active [facility] vomiting vomiting 09-12 st 00:00: Hospita 00 l Clostridiu Clostridiu Disease Active M ethodi m m 420 st difficile difficile 00:00: [facility] colitis [...] M ethodi at rest at rest 15 st 00:00: Hospita 00 l Elevated Elevated Disease Active 2019-05 Metho di troponin troponin 15 st 00:00: Hospita 00 l 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 00:00: Ho spita vein vein 00 l Complicati Complicati Disease Active 1 M ethodi on of on of 05-22 vascular vascular 00:00: Hospit a access for access for 00 l dialysis dialysis Dehydratio Dehydratio Disease Active 0 M ethodi n n 10-25 00:00: Hospita 00 l Hypoglycem Hypoglycem Disease Active 0 M ethodi ia ia 10-25 00:00: Hospita [...] Active M ethodi rosis of rosis of 08-16 [facility] [place] 00:[facility]: 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 follows with Dr. Ngo in [place] Neuropathy Neuropathy Disease Active Overview : Univers [...] Dr. Higuera Atrial Atrial Disease Active Overview: [facility] s fibrillati fibrillati Formattin ity of on on g of this [place] note Medical might be Branch different from the original. follows with Dr. Higuera Allergies, Adverse Reactions, Alerts Allergy Allergy Status Severity Reaction(s) Onset Inactive Treating Comm ents Source Name Type Date Date Clinician No Known DA Active U [facility] Allergie 1-17 Clear s 00:00: An 00 [facility] Hydrocod Propensi Active GI "not an Metho di one ty to Intolerance 1-12 allergy, st adverse 00:00: but it Hospita reaction 00 upsets my l s to stomach drug every time I take it" No Known DA Active U [facility] Allergie 9-11 Clear s 00:00: An 00 [facility] NO KNOWN Allergy Active [facility] NO KNOWN Drug Active Univers ALLERGIE Class ity of [facility] [place] [facility] Family History Family Member Diagnosis Comments Start Date Stop Date Source Natural sister Breast cancer [facility] Natural sister Cancer [facility] Natural brother Cancer [facility] Natural brother Colon cancer [facility] Natural brother Lung cancer [facility] Maternal grandmother Brain cancer [facility] Maternal [facility] mother [facility] Natural mother Uterine [facility] Social History Social Habit Start Date Stop Date Quantity Comments Source History SDOH [facility] Alcohol Std Drinks Hospit al Gender identity [facility] Sexual orientation [facility] History of Social 2022-07-28 2022-07-[address] function 00:00:00 00:00:00 Hospital Tobacco use and 2022-01-08 2022-01-[address] [facility] kes exposure 00:00:00 00:00:00 tobacco non-user [facility] Alcohol intake 2021-09-14 2021-09-14 Current [facility] 00:00:00 00:00:00 non-drinker of Hospital alcohol (finding) History [facility] 2020-04-05 2020-04-05 1 [facility] Alcohol Frequency 00:00:00 00:00:00 Hospita l History [facility] 2020-04-05 2020-04-05 1 [facility] Alcohol Binge 00:00:00 00:00:00 Hospital Sex [birth year] At [birth year] [facility] 00:00:00 00:00:00 Hospital Smoking Status Start Date Stop Date Source Never smoked tobacco [facility] Center Medications Ordered Filled Start Stop Current Ordering Indication Dosage Frequency Signature Comments Components Source Medication Medication Date Date Medication? Clinician (SIG) Name Name aspirin 81 Yes 81mg QD Take [address] MG chewable 8-30 by mouth Luke s tablet 16:49: daily. [address] apixaban Yes 2.5mg Q.5D Take 2.5 [...] MG 16:49: mouth Medical tablet 03 nightly. [place] aspirin 81 0 Yes 81mg QD Take [address] MG chewable 8-30 by mouth Luke s tablet 16:49: daily. [address] apixaban Yes 2.5mg Q.5D Take 2.[address] (Eliquis) 8-30 mg by [facility] 2.5 mg Tab 16:49: mouth 2 Medi keira tablet 03 (two) Center times daily. pramipexole 2021-0 Yes 1mg QD Take [address] (MIRAPEX) 1 8-30 by mouth Luke s MG tablet 16:49: nightly. [address] semaglutide 2021-0 Yes .25mg Inject [facility]I [...] MG 16:49: mouth Medical tablet 03 nightly. [place] aspirin 81 2021-0 Yes 81mg QD Take [address] MG chewable 8-30 by mouth Luke s tablet 16:49: daily. [address] apixaban 2021-0 Yes 2.5mg Q.5D Take 2.[address] (Eliquis) 8-30 mg by [facility] 2.5 mg Tab 16:49: mouth 2 Medi [place] tablet 03 (two) Center times daily. pramipexole 2021-0 Yes 1mg QD Take [address] (MIRAPEX) 1 8-30 by mouth Luke s MG tablet 16:49: nightly. [address] semaglutide 0 Yes .25mg Inject CHI [...] MG 16:49: mouth Medical tablet 03 nightly. [place] aspirin 81 2021-0 Yes 81mg QD Take [address] MG chewable 8-30 by mouth Luke s tablet 16:49: daily. [address] apixaban 0 Yes 2.5mg Q.5D Take 2.[address] (Eliquis) 8-30 mg by [facility] 2.5 mg Tab 16:49: mouth 2 Medi [place] tablet 03 (two) Center times daily. pramipexole 0 Yes 1mg QD Take [address] (MIRAPEX) 1 8-30 by mouth Luke s MG tablet 16:49: nightly. [address] semaglutide 0 Yes .25mg Inject [facility] (Ozempic) 8-30 0.25 mg [facility]ukes 0.25 mg or 16:49: subcutaneo M edical 0.5 mg(2 03 usly every Cente r mg/1.5 mL) 7 days PnIj Every Monday . pantoprazol 0 Yes 40mg QD Take [address] [facility] 8-30 by mouth [facility]ukes (PROTONIX) 16:49: daily. Medic al [address] [place] [address] tablet traZODone 0 Yes 100mg QD Take [address] (DESYREL) 8-30 mg by [facility]ukes 100 MG 16:49: mouth Medical tablet 03 nightly. [place] aspirin 81 0 Yes 81mg QD Take [address] MG chewable 8-30 by mouth Luke s tablet 16:49: daily. [address] apixaban 0 Yes 2.5mg Q.5D Take 2.[address] (Eliquis) 8-30 mg by [facility] 2.5 mg Tab 16:49: mouth 2 Medi [place] tablet 03 (two) Center times daily. pramipexole 2021-0 Yes 1mg QD Take [address] (MIRAPEX) 1 8-30 by mouth Luke s MG tablet 16:49: nightly. [address] semaglutide 0 Yes .25mg Inject CHI [...] by mouth Luke s tablet 16:49: daily. [facility] 03 [place] apixaban 2021-0 Yes 2.5mg Q.5D Take 2.[address] (Eliquis) 8-30 mg by [facility] 2.5 mg Tab 16:49: mouth 2 Medi [place] tablet 03 (two) Center times daily. pramipexole 2021-0 Yes 1mg QD Take [address] (MIRAPEX) 1 8-30 by mouth Luke s MG tablet 16:49: nightly. Medi [place] 03 [place] semaglutide 0 Yes .25mg Inject [facility] [...] MG 16:49: mouth Medical tablet 03 nightly. [place] aspirin 81 2021-0 Yes 81mg QD Take [address] MG chewable 8-30 by mouth Luke s tablet 16:49: daily. [facility] 03 [place] apixaban 2021-0 Yes 2.5mg Q.5D Take 2.[address] (Eliquis) 8-30 mg by [facility] 2.5 mg Tab 16:49: mouth 2 Medi [place] tablet 03 (two) Center times daily. pramipexole 2022-0 Yes 1mg QD Take 1 mg C [...] 03 nightly. Center hydrALAZINE 2021- No 25mg Q.[id number] Take [address] (APRESOLINE -18 01-30 [id number] by mouth 3 [facility] ) 25 MG [...] es (IMDUR) 60 11:55: 00:00 daily. Medi keiar MG 24 hr 27 :00 Center tablet [...] 00:00 mouth Medical capsule 27 :00 daily. [place] hydrALAZINE 2021- No 25mg Q.[id number] Take [address] (APRESOLINE 01-18-30 [id number] by mouth 3 [facility] ) 25 MG [...] QD Take 0.[address] (ROCALTROL) 01-18 08-30 mcg by [facility]ukes 0.25 MCG 11:55: 00:00 mouth Medical capsule 27 :00 daily. Center hydrALAZINE 2021- No 25mg Q.[id number] Take [address] (APRESOLINE 01-18 [id number] by mouth 3 [facility] ) 25 MG [...] 00:00 subcutaneo Me dical SEMGLEE) 27 :00 [facility] Center 100 unit/mL nightly injection Use [...] nightly. Med ical 10 MG 27 :00 [place] tablet melatonin 2021- No 10mg QD Take [address] 10 mg TbDL 01-1830 by mouth Luke s 11:55: 00:00 nightly. Medical 27 :00 [place] insulin 2021- No 10U Inject [address] aspart 01-18-30 Units [facility]ukes U-100 11:55: 00:00 subcutaneo Medic al (NovoLOG) 27 :00 usly 3 Center 100 unit/mL (three) (3 mL) InPn times daily before meals. calcitrioL 2021- No .25ug QD Take 0.[address] (ROCALTROL) 01-18-30 mcg by [facility]ukes 0.25 MCG 11:55: 00:00 mouth Medical capsule 27 :00 daily. [place] hydrALAZINE 2021- No 25mg Q.[id number] Take [address] (APRESOLINE 01-18 [id number] by mouth 3 [facility] ) 25 MG [...] 11:55: 00:00 nightly. Med ical 27 :00 [place] isosorbide 2021- No 60mg QD Take 60 [...] :00 daily. Center hydrALAZINE 2021- No 25mg Q.[id number] Take [address] (APRESOLINE 01-18- [id number] by mouth 3 [facility] ) 25 MG [...] mg [facility] (CARDURA) 4 01-18 08-30 by mouth Christopher es MG tablet [...] 00:00 nightly. Medical 27 :00 Center insulin 2021-2021- No 10U Inject [address] aspart 8-30 08-30 Units [facility] U-100 11:55: 00:00 subcutaneo Medic al (NovoLOG) 27 :00 usly 3 Center 100 unit/mL (three) (3 mL) InPn times daily before meals. calcitrioL 2021- No .25ug QD Take 0.[address] (ROCALTROL) 8 08-30 mcg by [facility]ukes 0.25 MCG 11:55: 00:00 mouth Medical capsule 27 :00 daily. Center hydrALAZINE 2021- No 25mg Q.[id number] Take [address] (APRESOLINE 01-18 [id number] by mouth 3 [facility] ) 25 MG [...] 00:00 subcutaneo Me dical SEMGLEE) 27 :00 [facility] Center 100 unit/mL nightly injection Use [...] :00 daily. Center hydrALAZINE 2021- No 25mg Q.[id number] Take [address] (APRESOLINE 01-18 [id number] by mouth 3 [facility] ) 25 MG [...] 40U QD Inject [address] glargine 8-30 08-30 Units [facility]ukes (LANTUS, 11:55: 00:00 subcutaneo [...] 125mg Q2D Take 1 Met hodi (Vancocin) 23 -[address] 125 MG 00:00: 04:59 (125 [...] 125mg QD Take 1 Met [facility]odi (Vancocin) 16 -[address] 125 MG 00:00: 04:59 [...] 7 doses. vancomycin 0 2021- No 125mg Q.5D Take 1 Met hodi (Vancocin) - 05-[address] 125 MG 00:00: 04:59 [...] for 14 doses. vancomycin 2021- No 125mg Q.[id number] Take 1 [facility] (Vancocin) 09-24 05-[id number] 125 MG 00:00: 04:59 3D (125 mg Hospita capsule 00 :00 total) by l mouth 3 (three) times a day for 8 doses. vancomycin 2021- No 125mg Q.[id number] Take 1 [facility] (Vancocin) 09-24 05-[id number] 125 MG 00:00: 04:59 3D (125 mg Hospita capsule 00 :00 total) by l mouth 3 (three) times a day for 8 doses. vancomycin 2021- No 125mg Q.[id number] Take 1 [facility] (Vancocin) 09-24 05-[id number] 125 MG 00:00: 04:59 3D (125 mg Hospita capsule 00 :00 total) by l mouth 3 (three) times a day for 8 doses. vancomycin 2021- No 125mg Q.[id number] Take 1 [facility] (Vancocin) 09-24 05-[id number] 125 MG 00:00: 04:59 3D [...] 03 (two) l times a day. metoprolol 2-0 2- No 100mg Q.5D Take 100 M ethodi tartrate 4-29 04-[address] (LOPRESSOR) 18:55: 00:00 mouth 2 Ho spita 100 mg 03 :00 (two) l tablet times a day. furosemide 2-0 2022- No 40mg Q.5D Take 40 mg [facility] (LASIX) 40 4-29 04-[address] mg tablet 18:55: 00:00 (two) Hospit a 03 :00 times a l day. metoprolol 2021-0 2021- No 100mg Q.5D Take 100 M ethodi tartrate 09-17 04-[address] (LOPRESSOR) 18:55: 00:00 mouth 2 Ho spita 100 mg 03 :00 (two) l tablet times a day. furosemide 2021-0 2021- No 40mg Q.5D Take 40 mg [facility] (LASIX) 40 09-17-[address] mg tablet 18:55: [...] Take 1 mg M ethodi (MIRAPEX) 1 09-[address] MG tablet 18:55: nightly. [facility] 51 l melatonin 2021-0 Yes 10mg QD Take 10 mg Me thodi 10 mg 09-[address] capsule 18:55: daily. Hospita 51 l traZODone 0 Yes 100mg QD Take 100 Met hodi (DESYREL) -[address] 100 MG 18:55: mouth Hospita tablet 51 nightly. l isosorbide 2021-0 Yes 60mg QD Take 60 mg M ethodi mononitrate -[address] (IMDUR) 60 18:55: daily. Hospi ta MG 24 hr 51 l tablet escitalopra 2021-0 Yes 10mg QD Take 10 mg Methodi m (LEXAPRO) -[address] 10 MG 18:55: daily. [...] 51 daily. l hydrALAZINE 2021- No 25mg Q.[id number] Take 1 [facility] (APRESOLINE 09-16- [id number] tablet (25 st ) 25 MG 00:00: [...] for 30 days. hydrALAZINE 2021- No 25mg Q.[id number] Take 1 [facility] (APRESOLINE 09-16- [id number] tablet (25 st ) 25 MG 00:00: [...] for 30 days. hydrALAZINE 2021- No 25mg Q.[id number] Take 1 [facility] (APRESOLINE -16 10- [id number] tablet (25 st ) 25 MG 00:00: [...] for 30 days. hydrALAZINE 2021- No 25mg Q.[id number] Take 1 [facility] (APRESOLINE 4-16 10-29 [id number] tablet (25 st ) 25 MG 00:00: 04:59 3D mg total) [facility] tablet 00 :00 by mouth l every 8 (eight) hours for 30 days. aspirin 81 2021-0 2021- No 81mg QD Chew 1 Meth ramiro mg chewable 09-16- tablet (81 s t tablet 00:00: 04:59 mg total) Hospi ta 00 :00 daily for l 30 days. carvediloL 2021-0 2022- No 25mg Q.5D Take 1 Meth ramiro (COREG) 25 4- 05-29 tablet (25 st MG tablet 00:00: 04:59 mg total) Ho spita 00 :00 by mouth 2 l (two) times a day for 30 days. pantoprazol 2022-0 2022- No 40mg QD Take 1 Met hodi e 4- 05-29 tablet (40 st (Protonix) 00:00: 04:59 mg total) H ospita 40 MG EC 00 :00 by mouth l tablet daily for 30 days. hydrALAZINE 2021-0 202- No 25mg Q.[id number] Take 1 [facility] (APRESOLINE 4-16 10- [id number] tablet (25 st ) 25 MG 00:00: 04:59 3D mg total) [facility] tablet 00 :00 by mouth l every 8 (eight) hours for 30 days. aspirin 81 2021-0 202- No 81mg QD Chew 1 Meth ramiro mg chewable 09-16- tablet (81 s t tablet 00:00: 04:59 mg total) Hospi ta 00 :00 daily for l 30 days. carvediloL 2021-0 202- No 25mg Q.5D Take 1 Meth ramiro [...] tablet daily for 30 days. hydrALAZINE 2021-0 2- No 25mg Q.[id number] Take 1 [facility] (APRESOLINE 4-28 05-29 [id number] tablet (25 st ) 25 MG 00:00: 04:59 3D mg total) [facility] tablet 00 :00 by mouth l every 8 (eight) hours for 30 days. aspirin 81 2021-0 2022- No 81mg QD Chew 1 Meth ramiro [...] insulin 2021- No Inject Methodi LISPRO 08-14 under the [...] times a day. hydrALAZINE 2021- No 100mg Q.[id number] Take 100 [facility] (APRESOLINE 3-25 03-[id number] ) 100 MG 19:46: [...] times a day. hydrALAZINE 2021- No 100mg Q.[id number] Take 100 [facility] (APRESOLINE 3-25 03-[id number] ) 100 MG 19:46: [...] 2021- No 12U QD Inject Methodi GLARGINE -13 09-[address] (LANTUS) 00:00: 00:00 (12 Units Hos keo 100 unit/mL 00 :00 total) l injection under the (vial) skin nightly for 30 days. carvediloL 2021- No 25mg Q.5D Take 1 Meth ramiro (COREG) 25 3-25 04-28 tablet (25 st MG tablet 00:00: 00:00 mg total) Ho spita 00 :00 by mouth 2 l (two) times a day for 30 days. hydrALAZINE 2021- No 50mg Q.[id number] Take 1 [facility] (APRESOLINE 3-25 04-28 [id number] tablet (50 st ) 50 MG 00:00: [...] for 30 days. hydrALAZINE 2021-2021- No 50mg Q.[id number] Take 1 [facility] (APRESOLINE 08-13 [id number] tablet (50 st ) 50 MG 00:00: [...] Q.5D Take 1 Me thodi (APRESOLINE 1-14 02-[address] ) 100 MG 00:00: 05:59 (100 mg Hospi ta tablet 00 :00 total) by l mouth 2 (two) times a day with meals for 30 days. isosorbide 2021-2021- No 60mg QD Take 1 Meth ramiro mononitrate 1-14 02-14 tablet (60 s t (IMDUR) 60 00:00: [...] morning for 30 days. levalbutero 2021- No [id number] 1.25mg Q8H Take 3 mL Methodi l [...] for 30 days. insulin 2021- No 5U Q.[id number] Inject M ethodi LISPRO 06-04 [id number] 0.05 mL (5 st (ADMELOG) 00:00: 05:59 3D Units Hospit a 100 unit/mL 00 :00 total) l subcutaneou under the s vial skin 3 (three) times a day with meals for 30 days. nystatin 2021- No Apply Methodi (MYCOSTATIN 1-14 -[address] ) 100,000 00:00: 05:59 as needed Ho spita unit/gram 00 :00 (rash) for l powder up to 30 days. budesonide 2020-05 Yes 3mg Q.[id number] Take 3 mg Methodi EC 2-12 [id number] by mouth 3 st (ENTOCORT 00:00: 3D (three) Hospi ta EC) 3 mg 24 00 times a l hr capsule day. budesonide 2020-05 Yes 3mg Q.[id number] Take 3 mg [facility]i EC 2-12 [id number] by mouth 3 [address] (ENTOCORT 00:00: 3D (three) Hospi ta EC) 3 mg 24 00 times a l hr capsule day. budesonide 2020-05 Yes 3mg Q.[id number] Take 3 mg Methodi EC 2-12 [id number] by mouth 3 st (ENTOCORT 00:00: 3D (three) Hospi ta EC) 3 mg 24 00 times a l hr capsule day. budesonide 2020-05 Yes 3mg Q.[id number] Take 3 mg Methodi EC 2-12 [id number] by mouth 3 [address] (ENTOCORT 00:00: 3D (three) Hospi ta EC) 3 mg 24 00 times a l hr capsule day. budesonide 2020-05 Yes 3mg Q.[id number] Take 3 mg Methodi EC 2-12 [id number] by mouth 3 st (ENTOCORT 00:00: 3D (three) Hospi ta EC) 3 mg 24 00 times a l hr capsule day. budesonide 2020-05 Yes 3mg Q.[id number] Take 3 mg [facility]i EC 2-12 [id number] by mouth 3 st (ENTOCORT 00:00: 3D (three) Hospi ta EC) 3 mg 24 00 times a l hr capsule day. budesonide 2020-05 Yes 3mg Q.[id number] Take 3 mg Methodi EC 2-12 [id number] by mouth 3 [address] (ENTOCORT 00:00: 3D [...] Under breast and between legs allopurinol Yes [id number] 150mg Take 150 Univers (ZYLOPRIM) 1-04 mg by ity of 100 mg 15:21: mouth [place] tablet 32 daily. Medical Branch CALCIUM Yes .25mg Take 0.25 Univ ers CARBONATE/V 1-04 mg by ity of ITAMIN D3 15:21: mouth [place] (VITAMIN 32 daily. Medical D-3 ORAL) Branch allopurinol Yes [id number] 150mg Take 150 Univers (ZYLOPRIM) 1-04 mg by ity of 100 mg 15:21: mouth [place] tablet 32 daily. Medical Branch CALCIUM Yes .25mg Take 0.25 Univ ers CARBONATE/V 1-04 mg by ity of ITAMIN D3 15:21: mouth [place] (VITAMIN 32 daily. Medical D-3 ORAL) Branch allopurinol Yes [id number] 150mg Take 150 Univers (ZYLOPRIM) 1-04 mg by ity of 100 mg 15:21: mouth [place] tablet 32 daily. Medical Branch CALCIUM Yes .25mg Take 0.25 Univ ers CARBONATE/V 1-04 mg by ity of ITAMIN D3 15:21: mouth [place] (VITAMIN 32 daily. Medical D-3 ORAL) Branch allopurinol Yes [id number] 150mg Take 150 Univers (ZYLOPRIM) 1-04 mg by ity of 100 mg 15:21: mouth [place] tablet 32 daily. Medical Branch CALCIUM Yes .25mg Take 0.25 Univ ers CARBONATE/V 1-04 mg by ity of ITAMIN D3 15:21: mouth [place] (VITAMIN 32 daily. Medical D-3 ORAL) Branch allopurinol Yes [id number] 150mg Take 150 Univers (ZYLOPRIM) 1-04 mg by ity of 100 mg 15:21: mouth [place] tablet 32 daily. Medical Branch CALCIUM Yes .25mg Take 0.25 Univ ers CARBONATE/V 1-04 mg by ity of ITAMIN D3 15:21: mouth [place] (VITAMIN 32 daily. Medical D-3 ORAL) Branch allopurinol Yes [id number] 150mg Take 150 Univers (ZYLOPRIM) 1-04 mg by ity of 100 mg 15:21: mouth [place] tablet 32 daily. Medical Branch allopurinol Yes [id number] 150mg Take 150 Univers (ZYLOPRIM) 1-04 mg by ity of 100 mg 15:21: mouth [place] tablet 32 daily. Medical Branch CALCIUM Yes .25mg Take 0.25 Univ ers CARBONATE/V 1-04 mg by ity of ITAMIN D3 15:21: mouth [place] (VITAMIN 32 daily. Medical D-3 ORAL) Branch allopurinol Yes [id number] 150mg Take 150 Univers (ZYLOPRIM) 1-04 mg [...] daily. Medical D-3 ORAL) Branch allopurinol Yes [id number] 150mg Take 150 Univers (ZYLOPRIM) 1-04 mg by ity of 100 mg 15:21: mouth [place] tablet 32 daily. Medical Branch CALCIUM Yes .25mg Take 0.25 Univ ers CARBONATE/V 1-04 mg by ity of ITAMIN D3 15:21: mouth [place] (VITAMIN 32 daily. Medical D-3 ORAL) Branch allopurinol Yes [id number] 150mg Take 150 Univers (ZYLOPRIM) 1-04 mg by ity of 100 mg 15:21: mouth [place] tablet 32 daily. Medical Branch CALCIUM 2017-0 Yes .25mg Take 0.25 Univ ers CARBONATE/V 1-04 mg by ity of ITAMIN D3 15:21: mouth [place] (VITAMIN 32 daily. Medical D-3 ORAL) Branch allopurinol 2016- Yes [id number] 150mg Take 150 Univers (ZYLOPRIM) 1-04 mg by ity of 100 mg 15:21: mouth [place] tablet 32 daily. Medical Branch CALCIUM 2016- Yes .25mg Take 0.25 Univ ers CARBONATE/V 1-04 mg by ity of ITAMIN D3 15:21: mouth [place] (VITAMIN 32 daily. Medical D-3 ORAL) Branch furosemide Yes [id number] 40mg Take 40 mg Univers (LASIX) 20 1-04 by mouth ity o f mg tablet 15:19: daily. [address] furosemide Yes [id number] 40mg Take 40 mg Univers (LASIX) 20 1-04 by mouth ity o f mg tablet 15:19: daily. [address] furosemide Yes [id number] 40mg Take 40 mg Univers (LASIX) 20 1-04 by mouth ity o f mg tablet 15:19: daily. [address] furosemide Yes [id number] 40mg Take 40 mg Univers (LASIX) 20 1-04 by mouth ity o f mg tablet 15:19: daily. [address] furosemide Yes [id number] 40mg Take 40 mg Univers (LASIX) 20 1-04 by mouth ity o f mg tablet 15:19: daily. [address] furosemide Yes [id number] 40mg Take 40 mg Univers (LASIX) 20 1-04 by mouth ity o f mg tablet 15:19: daily. [address] furosemide Yes [id number] 40mg Take 40 mg Univers (LASIX) 20 1-04 by mouth ity o f mg tablet 15:19: daily. [address] furosemide 2016-0 Yes [id number] 40mg Take 40 mg Univers (LASIX) 20 1-04 by mouth ity o f mg tablet 15:19: daily. [address] furosemide 2016- Yes [id number] 40mg Take 40 mg Univers (LASIX) 20 1-04 by mouth ity o f mg tablet 15:19: daily. [address] furosemide 2017- Yes [id number] 40mg Take 40 mg Univers (LASIX) 20 1-04 by mouth ity o f mg tablet 15:19: daily. [address] furosemide 2016- Yes [id number] 40mg Take 40 mg Univers (LASIX) 20 1-04 by mouth ity o f mg tablet 15:19: daily. [address] Golimumab 2016- Yes [id number] inject U nivers (SIMPONI) 1-04 under the ity o f 50 mg/0.5 15:18: skin. [place] mL 20 Infusion Medical injection every 8 Branch weeks for rheumatoid arthritis. Golimumab Yes [id number] inject U nivers (SIMPONI) 1-04 under the ity o f 50 mg/0.5 15:18: skin. [place] mL 20 Infusion Medical injection every 8 Branch weeks for rheumatoid arthritis. Golimumab Yes [id number] inject U nivers (SIMPONI) 1-04 under the ity o f 50 mg/0.5 15:18: skin. [place] mL 20 Infusion Medical injection every 8 Branch weeks for rheumatoid arthritis. Golimumab Yes [id number] inject U nivers (SIMPONI) 1-04 under the ity o f 50 mg/0.5 15:18: skin. [place] mL 20 Infusion Medical injection every 8 Branch weeks for rheumatoid arthritis. Golimumab Yes [id number] inject U nivers (SIMPONI) 1-04 under the ity o f 50 mg/0.5 15:18: skin. [place] mL 20 Infusion Medical injection every 8 Branch weeks for rheumatoid arthritis. Golimumab Yes [id number] inject U nivers (SIMPONI) 1-04 under the ity o f 50 mg/0.5 15:18: skin. [place] mL 20 Infusion Medical injection every 8 Branch weeks for rheumatoid arthritis. Golimumab 2016- Yes [id number] inject U nivers (SIMPONI) 1-04 under the ity o f 50 mg/0.5 15:18: skin. [place] mL 20 Infusion Medical injection every 8 Branch weeks for rheumatoid arthritis. Golimumab 2016- Yes [id number] inject U nivers (SIMPONI) 1-04 under the ity o f 50 mg/0.5 15:18: skin. [place] mL 20 Infusion Medical injection every 8 Branch weeks for rheumatoid arthritis. Golimumab 2017- Yes [id number] inject U nivers (SIMPONI) 1-04 under the ity o f 50 mg/0.5 15:18: skin. [place] mL 20 Infusion Medical injection every 8 Branch weeks for rheumatoid arthritis. Golimumab 2017- Yes [id number] inject U nivers (SIMPONI) 1-04 under the ity o f 50 mg/0.5 15:18: skin. [place] mL 20 Infusion Medical injection every 8 Branch weeks for rheumatoid arthritis. Golimumab 2017- Yes [id number] inject U nivers (SIMPONI) 1-04 under the [...] Branch daily with meals. linagliptin 2017 Yes [id number] Take by Univers (TRADJENTA) 1-04 mouth. ity [...] 2 [place] tablet 03 (two) Medical times [place] daily with meals. linagliptin 2017-0 Yes [id number] Take by Univers (TRADJENTA) 1-04 mouth. ity [...] 2 [place] tablet 03 (two) Medical times [place] daily with meals. linagliptin 2017-0 Yes [id number] Take by Univers (TRADJENTA) 1-04 mouth. ity [...] 2 [place] tablet 03 (two) Medical times [place] daily with meals. linagliptin Yes [id number] Take by Univers (TRADJuntos FinanzasNTA) 1-04 mouth. ity of 5 mg tablet 14:33: [place] [facility] linagliptin Yes [id number] Take by Univers (TRADJuntos FinanzasNTA) 1-04 mouth. ity of 5 mg tablet 14:33: [place] [facility] apixaban Yes 5mg Take 5 [...] 2 [place] tablet 03 (two) Medical times [place] daily with meals. linagliptin Yes [id number] Take by Univers (Nu3NTA) 1-04 mouth. ity of 5 mg tablet 14:33: [place] [facility] apixaban Yes 5mg Take 5 [...] Branch daily with meals. linagliptin 2017- Yes [id number] Take by Univers (TRADJENTA) 1-04 mouth. ity [...] Branch daily with meals. linagliptin 2017-0 Yes [id number] Take by Univers (TRADJENTA) 1-04 mouth. ity [...] 2 [place] tablet 03 (two) Medical times [place] daily with meals. linagliptin 2017-0 Yes [id number] Take by Univers (TRADJENTA) 1-04 mouth. ity of 5 mg tablet 14:33: [place] [facility] apixaban 2016-0 Yes 5mg Take [...] 2 [place] tablet 03 (two) Medical times [place] daily with meals. linagliptin 2017-0 Yes [id number] Take by Univers (TRADJENTA) 1-04 mouth. ity [...] 60mg Take 60 mg U nivers mononitrate -04 by mouth. ity of (IMDUR) 60 14:33: [place] mg 24 hr 03 Medical tablet Branch carvedilol Yes 12.5mg Take 12.5 Univers (COREG) 1-04 mg by ity of 12.5 mg 14:33: mouth 2 [place] tablet 03 (two) Medical times Branch daily with meals. linagliptin Yes [id number] Take by Univers (TRADJENTA) 1-04 mouth. ity of 5 mg tablet 14:33: [place] 03 Medical Branch pramipexole Yes [id number] 2mg Take 2 [facility] (MIRAPEX) 1 1-04 tablets by [place] [facility] [place] mg tablet [place] 00 bed[place]. [facility] pramipexole Yes [id number] 2mg Take 2 [facility] (MIRAPEX) 1 1-04 tablets by [facility] y [place] mg tablet 00:00: [place] 00 bedtime. [facility] pramipexole Yes [id number] 2mg Take 2 [facility] (MIRAPEX) 1 1-04 tablets by [place] [facility] [place] mg tablet [place]: [place] bedtime. [facility] pramipexole Yes [id number] 2mg Take 2 [facility] (MIRAPEX) 1 1-04 tablets by [facility] [place] mg tablet 00:[place]: [place] 00 bedtime. [facility] pramipexole Yes [id number] 2mg Take 2 [facility] (MIRAPEX) 1 1-04 tablets by [facility] y [place] mg tablet 00:00: [place] 00 bedtime. [facility] pramipexole Yes [id number] 2mg Take 2 [facility] (MIRAPEX) 1 1-04 tablets by [facility] [place] mg tablet 00:00: [place] 00 bedtime. [facility] pramipexole Yes [id number] 2mg Take 2 [facility] (MIRAPEX) 1 1-04 tablets by [facility] mg tablet 00:00: [place] bedtime. [facility] pramipexole Yes [id number] 2mg Take 2 [facility] (MIRAPEX) 1 1-04 tablets by [facility] of mg tablet 00:00: [place] bedtime. [facility] pramipexole Yes [id number] 2mg Take 2 [facility] (MIRAPEX) 1 1-04 tablets by [facility] mg tablet 00:00: [place] bedtime. [facility] pramipexole Yes [id number] 2mg Take 2 [facility] (MIRAPEX) 1 1-04 tablets by [facility] mg tablet 00:00: [place] bedtime. [facility] pramipexole Yes [id number] 2mg Take 2 [facility] (MIRAPEX) 1 1-04 [...] Medical times Branch daily. glipiZIDE 2015-05 Yes [id number] 10mg Take 1 Un kevan XL 1-16 tablet by ity of (GLUCOTROL 00:00: [place] XL[place] 10 mg 00 (two) Medical 24 hr times Branch tablet daily. glipiZIDE 2015-05 Yes [id number] 10mg Take 1 [facility] ke[place] XL 1-16 tablet by ity of (GLUCOTROL 00:00: mouth [place] XL) 10 mg 00 (two) Medical 24 hr times Branch tablet daily. glipiZIDE 2015-05 Yes [id number] 10mg Take 1 Un kvean XL 1-16 tablet by ity of (GLUCOTROL 00:00: mouth [place] XL[place] 10 mg 00 (two) Medical 24 hr times Branch tablet daily. glipiZIDE 2015-05 Yes [id number] 10mg Take 1 Un ke[place] XL 1-16 tablet by ity of (GLUCOTROL 00:00: mouth 2 [place] XL) 10 mg 00 (two) Medical 24 hr times Branch tablet daily. glipiZIDE 2015-05 Yes [id number] 10mg Take 1 [place] XL 1-16 tablet by ity of (GLUCOTROL 00:00: mouth 2 [place] XL) 10 mg 00 (two) Medical 24 hr times Branch tablet daily. glipiZIDE 2015-05 Yes [id number] 10mg Take 1 [place] XL 1-16 tablet by ity of (GLUCOTROL 00:00: mouth 2 [place] XL) 10 mg 00 (two) Medical 24 hr times Branch tablet daily. glipiZIDE 2015-05 Yes [id number] 10mg Take 1 [place] XL 1-16 tablet by ity of (GLUCOTROL 00:00: mouth 2 [place] XL) 10 mg 00 (two) Medical 24 hr times Branch tablet daily. glipiZIDE 2015-05 Yes [id number] 10mg Take 1 [place] XL 1-16 tablet by ity of (GLUCOTROL 00:00: mouth 2 [place] XL) 10 mg 00 (two) Medical 24 hr times Branch tablet daily. glipiZIDE 2015-05 Yes [id number] 10mg Take 1 [place] XL 1-16 tablet by ity of (GLUCOTROL 00:00: mouth 2 [place] XL) 10 mg 00 (two) Medical 24 hr times Branch tablet daily. glipiZIDE 2015-05 Yes [id number] 10mg Take 1 [place] XL 1-16 tablet by ity of (GLUCOTROL 00:00: mouth 2 [place] XL) 10 mg 00 (two) Medical 24 hr times Branch tablet daily. glipiZIDE 2015-05 Yes [id number] 10mg Take 1 [place] XL 1-16 tablet by ity of (GLUCOTROL 00:00: mouth 2 [place] XL) 10 mg 00 (two) Medical 24 hr times Branch tablet daily. atorvasta 2015-05 Yes [id number] 10mg Take 1 Univers n (LIPITOR) 1-02 tablet by ity of 10 mg 00:00: mouth at [place] tablet 00 bedtime. Medical Branch atorvastati 2015-05 Yes [id number] 10mg Take 1 Univers n (LIPITOR) 1-02 tablet by ity of 10 mg 00:00: mouth at [place] tablet 00 bedtime. [facility] Branch atorvastati 2015-05 Yes [id number] 10mg Take 1 Univers n (LIPITOR) 1-02 tablet by ity of 10 mg 00:00: mouth at [place] tablet 00 bedtime. Medical Branch atorvastati 2015-05 Yes [id number] 10mg Take 1 Univers n (LIPITOR) 1-02 tablet by ity of 10 mg 00:00: mouth at [place] tablet 00 bedtime. Medical Branch atorvastati 2015-05 Yes [id number] 10mg Take 1 Univers n (LIPITOR) 1-02 tablet by ity of 10 mg 00:00: mouth at [place] tablet 00 bedtime. [facility] Yes [id number] 10mg Take 1 Univers n (LIPITOR) 1-02 tablet by ity of 10 mg 00:00: mouth at [place] tablet 00 bedtime. [facility] 2015-05 Yes [id number] 10mg Take 1 Univers n (LIPITOR) 1-02 tablet by ity of 10 mg 00:00: mouth at [place] tablet 00 bedtime. [facility] Yes [id number] 10mg Take 1 Univers n (LIPITOR) 1-02 tablet by ity of 10 mg 00:00: mouth at [place] tablet 00 bedtime. [facility]-05 Yes [id number] 10mg Take 1 Univers n (LIPITOR) 1-02 tablet by ity of 10 mg 00:00: mouth at [place] tablet 00 bedtime. [facility]-05 Yes [id number] 10mg Take 1 Univers n (LIPITOR) 1-02 tablet by ity of 10 mg 00:00: mouth at [place] tablet 00 bedtime. [facility] 2015-05 Yes [id number] 10mg Take 1 Univers n (LIPITOR) 1-02 tablet by ity of 10 mg 00:00: mouth at [place] tablet 00 bedtime. [facility] Branch Immunizations Ordered Immunization Filled [...] odist VACCINATION 00:00:00 Hospital Pneumococcal 2020-04-29 Completed [facility] Polysaccharide 00:00:00 [facility] Zoster 2020-04-29 Completed [facility] 00:00:00 [facility] Pneumococcal 2020-04-29 Completed [facility] Polysaccharide 00:00:00 Hospital Zoster 2020-04-29 Completed [facility] 00:00:00 [facility] Pneumococcal 2020-04-29 Completed [facility] Polysaccharide 00:00:00 Hospital Zoster 2020-04-29 Completed [facility] 00:00:00 [facility] Pneumococcal 2020-04-29 Completed [facility] Polysaccharide 00:00:00 [facility] Zoster 2020-04-29 Completed [facility] 00:00:00 [facility] Pneumococcal 2020-04-29 Completed [facility] Polysaccharide 00:00:00 [facility] Zoster 2020-04-29 Completed [facility] 00:00:00 [facility] Pneumococcal 2020-04-29 Completed [facility] Polysaccharide 00:00:00 [facility] Zoster 2020-04-29 Completed [facility] 00:00:00 [facility] Pneumococcal 2020-04-29 Completed [facility] Polysaccharide 00:00:00 [facility] Zoster 2020-04-29 Completed [facility] 00:00:00 Hospital Pneumococcal 2019-05-13 Completed [facility] Conjugate 13-Valent 00:00:00 Hospi true Pneumococcal 2019-05-13 Completed [facility] Conjugate 13-Valent 00:00:00 Hospi true Pneumococcal 2019-05-13 Completed [facility] Conjugate 13-Valent 00:00:00 Hospi true Pneumococcal 2019-05-13 Completed [facility] Conjugate 13-Valent 00:00:00 Hospi true Pneumococcal 2019-05-13 Completed [facility] Conjugate 13-Valent 00:00:00 Hospi true Pneumococcal 2019-05-13 Completed [facility] Conjugate 13-Valent 00:00:00 Hospi true Pneumococcal 2019-05-13 Completed [facility] Conjugate 13-[facility]ent 00:00:00 Hospi true FLUCELVAX QUAD [...] Metho dist 00:00:00 Hospital Influenza, 2016-02-03 Completed [facility] Unspecified 00:00:00 Hospital Pneumococcal 2016-02-03 Completed [facility] Conjugate 13-Valent 00:00:00 Hospi true Tdap 2016-02-03 Completed [facility] 00:00:00 [facility] Influenza, 2016-02-03 Completed [facility] Unspecified 00:00:00 Hospital Pneumococcal 2016-02-03 Completed [facility] Conjugate 13-Valent 00:00:00 Hospi true Tdap 2016-02-03 Completed [facility] 00:00:00 [facility] Influenza, 2016-02-03 Completed [facility] Unspecified 00:00:00 Hospital Pneumococcal 2016-02-03 Completed [facility] Conjugate 13-Valent 00:00:00 Hospi true Tdap 2016-02-03 Completed [facility] 00:00:00 [facility] Influenza, 2016-02-03 Completed [facility] Unspecified 00:00:00 Hospital Pneumococcal 2016-02-03 Completed [facility] Conjugate 13-Valent 00:00:00 Hospi true Tdap 2016-02-03 Completed [facility] 00:00:00 [facility] Influenza, 2016-02-03 Completed [facility] Unspecified 00:00:00 Hospital Pneumococcal 2016-02-03 Completed [facility] Conjugate 13-Valent 00:00:00 Hospi true Tdap 2016-02-03 Completed [facility] 00:00:00 [facility] Influenza, 2016-02-03 Completed [facility] Unspecified 00:00:00 Hospital Pneumococcal 2016-02-03 Completed [facility] Conjugate 13-Valent 00:00:00 Hospi true Tdap 2016-02-03 Completed [facility] 00:00:00 Hospital Influenza, 2016-02-03 Completed [facility] Unspecified 00:00:00 Hospital Pneumococcal 2016-02-03 Completed [facility] Conjugate 13-Valent 00:00:00 Hospi true Tdap 2016-02-03 Completed [facility] 00:00:00 Hospital Influenza Virus 2016-02-03 Completed Universit y of Vaccine 00:00:00 [facility] Pneumococcal 13 2016-02-03 Completed Universit y of Conjugate, PCV13 00:00:00 [facility] dical (Prevnar 13) Branch [facility] 2016-02-03 Completed University of 00:00:00 [facility] Influenza Virus 2016-02-03 Completed Universit y of Vaccine 00:00:00 [facility] Pneumococcal 13 2016-02-03 Completed Universit y of Conjugate, PCV13 00:00:00 [facility] dical (Prevnar 13) Branch [facility] 2016-02-03 Completed University of 00:00:00 [facility] Influenza Virus 2016-02-03 Completed Universit y of Vaccine 00:00:00 [facility] Pneumococcal 13 2016-02-03 Completed Universit y of Conjugate, PCV13 00:00:00 [facility] dical (Prevnar 13) Branch [facility] 2016-02-03 Completed University of 00:00:00 [facility] Influenza Virus 2016-02-03 Completed Universit y of Vaccine 00:00:00 [facility] Pneumococcal 13 2016-02-03 Completed Universit y of Conjugate, PCV13 00:00:00 [facility] dical (Prevnar 13) Branch [facility] 2016-02-03 Completed University of 00:00:00 [facility] Influenza Virus 2016-02-03 Completed Universit y of Vaccine 00:00:00 [facility] Pneumococcal 13 2016-02-03 Completed Universit y of Conjugate, PCV13 00:00:00 [facility] dical (Prevnar 13) Branch [facility] 2016-02-03 Completed University of 00:00:00 [facility] Influenza Virus 2016-02-03 Completed Universit y of Vaccine 00:00:00 [facility] Pneumococcal 13 2016-02-03 Completed Universit y of Conjugate, PCV13 00:00:00 [facility] dical (Prevnar 13) Branch [facility] 2016-02-03 Completed University of 00:00:00 [facility] Influenza Virus 2016-02-03 Completed Universit y of Vaccine 00:00:00 [facility] Pneumococcal 13 2016-02-03 Completed Universit y of Conjugate, PCV13 00:00:00 [facility] dical (Prevnar 13) [facility] 2016-02-03 Completed University of 00:00:00 [facility] Influenza Virus 2016-02-03 Completed Universit y of Vaccine 00:00:00 [facility] Pneumococcal 13 2016-02-03 Completed Universit y of Conjugate, PCV13 00:00:00 [place] [facility]ical (Prevnar 13) Branch TDAP 2016-02-03 Completed University of 00:00:00 [facility] Influenza Virus 2016-02-03 Completed Universit y of Vaccine 00:00:00 [facility] Pneumococcal 13 2016-02-03 Completed Universit y of Conjugate, PCV13 00:00:00 [place] [facility]ical (Prevnar 13) Branch TDAP 2016-02-03 Completed University of 00:00:00 [facility] Influenza Virus 2016-02-03 Completed Universit y of Vaccine 00:00:00 [facility] Pneumococcal 13 2016-02-03 Completed Universit y of Conjugate, PCV13 00:00:00 [place] [facility] (Prevnar 13) Branch TDAP 2016-02-03 Completed University of 00:00:00 [facility] Influenza Virus 2016-02-03 Completed Universit y of Vaccine 00:00:00 [facility] Pneumococcal 13 2016-02-03 Completed Universit y of Conjugate, PCV13 00:00:00 [facility] dical (Prevnar 13) Branch TDAP 2016-02-03 Completed University of 00:00:00 [facility] Influenza, 2015-01-05 Completed [facility] Un[facility] 00:00:00 [facility] Pneumococcal 2015-01-05 Completed [facility] Conjugate 13-Valent 00:00:00 Hospi true Td 2015-01-05 Completed [facility] 00:00:00 [facility] Influenza, 2015-01-05 Completed [facility] Unspecified 00:00:00 Hospital Pneumococcal 2015-01-05 Completed [facility] Conjugate 13-Valent 00:00:00 Hospi true Td 2015-01-05 Completed [facility] 00:00:00 [facility] Influenza, 2015-01-05 Completed [facility] Unspecified 00:00:00 Hospital Pneumococcal 2015-01-05 Completed [facility] Conjugate 13-Valent 00:00:00 Hospi true Td 2015-01-05 Completed [facility] 00:00:00 [facility] Influenza, 2015-01-05 Completed [facility] Unspecified 00:00:00 Hospital Pneumococcal 2015-01-05 Completed [facility] Conjugate 13-Valent 00:00:00 Hospi true Td 2015-01-05 Completed [facility] 00:00:00 [facility] Influenza, 2015-01-05 Completed [facility] Unspecified 00:00:00 Hospital Pneumococcal 2015-01-05 Completed [facility] Conjugate 13-Valent 00:00:00 Hospi true Td 2015-01-05 Completed [facility] 00:00:00 [facility] Influenza, 2015-01-05 Completed [facility] Unspecified 00:00:00 Hospital Pneumococcal 2015-01-05 Completed [facility] Conjugate 13-Valent 00:00:00 Hospi true Td 2015-01-05 Completed [facility] 00:00:00 [facility] Influenza, 2015-01-05 Completed [facility] Unspecified 00:00:00 Hospital Pneumococcal 2015-01-05 Completed [facility] Conjugate 13-Valent 00:00:00 Hospi true Td 2015-01-05 Completed [facility] Influenza Virus 2015-01-05 Completed Universit y of Vaccine 00:00:00 [facility] Pneumococcal 13 2015-01-05 Completed Universit y of Conjugate, PCV13 00:00:00 [place] [facility] (Prevnar 13) Branch Tetanus/Diptheria 2015-01-05 Completed Univers ity of 00:00:00 [facility] Influenza Virus 2015-01-05 Completed Universit y of Vaccine 00:00:00 [facility] Pneumococcal 13 2015-01-05 Completed Universit y of Conjugate, PCV13 00:00:00 [place] [facility] (Prevnar 13) Branch Tetanus/Diptheria 2015-01-05 Completed Univers ity of 00:00:00 [facility] Influenza Virus 2015-01-05 Completed Universit y of Vaccine 00:00:00 [facility] Pneumococcal 13 2015-01-05 Completed Universit y of Conjugate, PCV13 00:00:00 [facility] dical (Prevnar 13) Branch Tetanus/Diptheria 2015-01-05 Completed Univers ity of 00:00:00 [facility] Influenza Virus 2015-01-05 Completed Universit y of Vaccine 00:00:00 [facility] Pneumococcal 13 2015-01-05 Completed Universit y of Conjugate, PCV13 00:00:00 [place] [facility]ical (Prevnar 13) Branch Tetanus/Diptheria 2015-01-05 Completed Univers ity of 00:00:00 [facility] Influenza Virus 2015-01-05 Completed Universit y of Vaccine 00:00:00 [facility] Pneumococcal 13 2015-01-05 Completed Universit y of Conjugate, PCV13 00:00:00 [place] [facility]ical (Prevnar 13) Branch Tetanus/Diptheria 2015-01-05 Completed Univers ity of 00:00:00 [facility] Influenza Virus 2015-01-05 Completed Universit y of Vaccine 00:00:00 [facility] Pneumococcal 13 2015-01-05 Completed Universit y of Conjugate, PCV13 00:00:00 [facility] dical (Prevnar 13) Branch Tetanus/Diptheria 2015-01-05 Completed Univers ity of 00:00:00 [facility] Influenza Virus 2015-01-05 Completed Universit y of Vaccine 00:00:00 [facility] Pneumococcal 13 2015-01-05 Completed Universit y of Conjugate, PCV13 00:00:00 [facility] dical (Prevnar 13) Branch Tetanus/Diptheria 2015-01-05 Completed Univers ity of 00:00:00 [facility] Influenza Virus 2015-01-05 Completed Universit y of Vaccine 00:00:00 [facility] Pneumococcal 13 2015-01-05 Completed Universit y of Conjugate, PCV13 00:00:00 [facility] dical (Prevnar 13) Branch Tetanus/Diptheria 2015-01-05 Completed Univers ity of 00:00:00 [facility] Influenza Virus 2015-01-05 Completed Universit y of Vaccine 00:00:00 [facility] Pneumococcal 13 2015-01-05 Completed Universit y of Conjugate, PCV13 00:00:00 [facility] dical (Prevnar 13) Branch Tetanus/Diptheria 2015-01-05 Completed Univers ity of 00:00:00 [facility] Influenza Virus 2015-01-05 Completed Universit y of Vaccine 00:00:00 [facility] Pneumococcal 13 2015-01-05 Completed Universit y of Conjugate, PCV13 00:00:00 [facility] dical (Prevnar 13) Branch Tetanus/Diptheria 2015-01-05 Completed Univers ity of 00:00:00 [facility] Influenza Virus 2015-01-05 Completed Universit y of Vaccine 00:00:00 [facility] Pneumococcal 13 2015-01-05 Completed Universit y of Conjugate, PCV13 00:00:00 [facility] dical (Prevnar 13) Branch Tetanus/Diptheria 2015-01-05 Completed Univers ity of 00:00:00 [facility] Pneumococcal 2013-05-21 Completed [facility] Conjugate 00:00:00 Hospital Tdap 2013-05-21 Completed [facility] 00:00:00 [facility] Pneumococcal 2013-05-21 Completed [facility] Conjugate 00:00:00 Hospital Tdap 2013-05-21 Completed [facility] 00:00:00 [facility] Pneumococcal 2013-05-21 Completed [facility] Conjugate 00:00:00 Hospital Tdap 2013-05-21 Completed [facility] 00:00:00 [facility] Pneumococcal 2013-05-21 Completed [facility] Conjugate 00:00:00 Hospital Tdap 2013-05-21 Completed [facility] 00:00:00 [facility] Pneumococcal 2013-05-21 Completed [facility] Conjugate 00:00:00 Hospital Tdap 2013-05-21 Completed [facility] 00:00:00 [facility] Pneumococcal 2013-05-21 Completed [facility] Conjugate 00:00:00 Hospital Tdap 2013-05-21 Completed [facility] 00:00:00 [facility] Pneumococcal 2013-05-21 Completed [facility] Conjugate 00:00:00 Hospital Tdap 2013-05-21 Completed [facility] 00:00:00 [facility] H1N1 All Forms 2009-04-20 Completed [facility] 00:00:00 [facility] H1N1 All Forms 2009-04-20 Completed [facility] 00:00:00 [facility] H1N1 All Forms 2009-04-20 Completed [facility] 00:00:00 [facility] H1N1 All Forms 2009-04-20 Completed [facility] 00:00:00 [facility] H1N1 All Forms 2009-04-20 Completed [facility] 00:00:00 Hospital H1N1 All Forms 2009-04-20 Completed [facility] 00:00:00 Hospital H1N1 All Forms 2009-04-20 Completed [facility] 00:00:00 Hospital Vital Signs Vital Name Observation Time Observation Value Comments Source HEIGHT 2022-01-14 10:00:00 162.6 cm WEIGHT 2022-01-14 10:00:00 68.04 kg HEIGHT 2022-01-14 10:00:00 162.6 cm WEIGHT 2022-01-14 10:00:00 68.04 kg Systolic blood 2022-01-18 12:00:00 117 mm[Hg] [facility] Diastolic blood 2022-01-18 12:00:00 51 mm[Hg] [facility] Heart rate 2022-01-18 12:00:00 80 /min [facility] Body temperature 2022-01-18 12:00:00 36.78 Mena [facility] Respiratory rate 2022-01-18 12:00:00 18 /min [facility] Oxygen saturation in 2022-01-18 12:00:00 100 /min [facility] Arterial blood by Medical Ce nter Pulse oximetry Body height 2022-01-14 10:00:[address] [facility] Body weight 2022-01-14 10:00:[address] [facility] BMI 2022-01-14 10:00:00 25.75 kg/m2 [facility] Systolic blood 2021-09-16 23:24:00 145 mm[Hg] [facility] pressure Diastolic blood 2021-09-16 23:24:00 78 mm[Hg] [facility] pressure Heart rate 2021-09-16 23:00:00 80 /min [facility] Respiratory rate 2021-09-16 23:00:00 19 /min [facility] Body temperature 2021-09-16 19:25:[address] [facility] Oxygen saturation in 2021-09-16 15:57:32 98 /min [facility] Arterial blood by Pulse oximetry Body height 2021-09-07 12:58:00 162.6 cm [facility] Body weight 2021-09-07 12:58:00 67.3 kg [facility] BMI 2021-09-07 12:58:00 25.47 kg/m2 [facility] Procedures Procedure Date / Time Performing Source Performed Clinician [id number] 2022-10-11 [facility] 00:00:00 [facility] EXTERNAL PROVIDER RECORDS 2022-07-05 [facility] 06:01:00 Unassigned, No Medical Branch Name EXTERNAL PROVIDER RECORDS 2022-04-01 [facility] 06:01:00 Unassigned, No Medical Branch Name POCT-GLUCOSE METER 2022-01-18 Annalee Bey [facility] 12:10:00 Center HEMODIALYSIS INPATIENT 2022-01-18 Miles Quinones [facility] 07:52:23 [facility] BASIC METABOLIC PANEL 2022-01-18 [facility] 06:09:00 Center POCT-GLUCOSE METER 2022-01-17 [facility], [facility] 19:46:00 [place] POCT-GLUCOSE METER 2022-01-17 [facility] 17:06:00 Center POCT-GLUCOSE METER 2022-01-17 [facility] 12:13:00 Center POCT-GLUCOSE METER 2022-01-17 [facility] 08:29:00 Center BASIC METABOLIC PANEL 2022-01-17 [facility] 03:23:00 Center POCT-GLUCOSE METER 2022-01-16 [facility] 20:16:00 Center POCT-GLUCOSE METER 2022-01-16 [facility] 15:46:00 Center POCT-GLUCOSE METER 2022-01-16 [facility] 11:46:00 Center POCT-GLUCOSE METER 2022-01-16 [facility] 07:47:00 Center POCT-GLUCOSE METER 2022-01-15 [facility] 20:13:00 Center POCT-GLUCOSE METER 2022-01-15 [facility] 17:54:00 Center POCT-GLUCOSE METER 2022-01-15 [facility] 12:31:00 Center HEMODIALYSIS INPATIENT 2022-01-15 [facility] 10:06:42 [facility] Center POCT-GLUCOSE METER 2022-01-15 [facility] 07:32:00 Center BASIC METABOLIC PANEL 2022-01-15 [facility] 03:58:00 Center POCT-GLUCOSE METER 2022-01-14 [facility], [facility] 20:42:00 Center POCT-GLUCOSE METER 2022-01-14 [facility] 15:38:00 Center SARS-COV2/RT-PCR (HS & REF 2022-01-14 [facility] LABS) 14:57:00 Center XR CHEST 1 VIEW PORTABLE / 2022-01-14 [facility] BEDSIDE 14:38:00 Center POCT-GLUCOSE METER 2022-01-14 [facility] 12:02:00 [place] IR CENTRAL VENOUS CATHETER 2022-01-14 [facility], [facility] PLACEMENT (JUGULAR OR FEMORAL) 11:14:00 [facility] POCT-GLUCOSE METER 2022-01-14 [facility], [facility] 08:24:00 [place] CBC (HEMOGRAM ONLY) 2022-01-14 [facility], [facility] 04:11:00 [place] BASIC METABOLIC PANEL 2022-01-14 [facility] 04:11:00 [place] POCT-GLUCOSE METER 2022-01-13 [facility], [facility] 19:39:00 [place] POCT-GLUCOSE METER 2022-01-13 [facility], [facility] 16:37:00 [place] POCT-GLUCOSE METER 2022-01-13 [facility] 13:51:00 [place] BLOOD GAS, ARTERIAL 2022-01-13 [facility], [facility] 08:41:00 [place] POCT-GLUCOSE METER 2022-01-13 [facility], [facility] 08:25:[address] [place] [address] BRAIN WITHOUT IV CONTRAST 2022-01-13 [facility], [facility] 07:50:00 [place] COMPREHENSIVE METABOLIC PANEL 2022-01-13 [facility], [facility] 07:29:00 [place] TROPONIN I 2022-01-13 [facility], [facility] ical 07:29:00 [place] TSH/FREE T4 IF INDICATED 2022-01-13 [facility], [facility] 07:29:00 [place] CBC W/PLT COUNT & AUTO 2022-01-13 [facility], [facility] DIFFERENTIAL 07:29:00 [place] CBC W/PLT COUNT & AUTO 2022-01-13 [facility], [facility] DIFFERENTIAL 07:29:00 [place] POCT-GLUCOSE METER 2022-01-13 [facility], [facility] 07:04:00 [place] POCT-GLUCOSE METER 2022-01-13 [facility], [facility] 06:21:00 [place] POCT-GLUCOSE METER 2022-01-12 [facility], [facility] 20:53:00 Center POCT-GLUCOSE METER 2022-01-12 Reji, [facility] 19:20:00 [place] POCT-GLUCOSE METER 2022-01-12 Reji, [facility] 18:50:00 Center POCT-GLUCOSE METER 2022-01-12 Reji, [facility] 17:58:00 [place] IR TUNNELED CATHETER INSERTION 2022-01-12 LexieRufina alvarez [facility] 16:30:00 Aguila [facility] POCT-GLUCOSE METER 2022-01-12 Reji, [facility] 12:08:00 [place] POCT-GLUCOSE METER 2022-01-12 [facility], Annalee Montoya [facility] 08:49:00 Center CBC W/PLT COUNT & AUTO 2022-01-12 [facility], Annalee Montoya [facility] DIFFERENTIAL 05:39:00 [place] BASIC METABOLIC PANEL 2022-01-12 [facility], Annalee Montoya [facility] 05:39:00 [place] MAGNESIUM 2022-01-12 [facility], Annalee Montyoa [facility] 05:39:00 [place] PHOSPHORUS 2022-01-12 Shieh, Annalee Montoya [facility] 05:39:00 Center PROTHROMBIN TIME/INR 2022-01-12 [facility], Annalee Montoya [facility] 05:39:00 Center APTT 2022-01-12 [facility], Annalee Montoya [facility] 05:39:00 [place] CBC W/PLT COUNT & AUTO 2022-01-12 [facility], Annalee Montoya [facility] DIFFERENTIAL 05:39:00 [place] (MANUAL DIFFERENTIAL) 2022-01-12 [facility], Annalee Montoya [facility] 05:39:00 [place] POCT-GLUCOSE METER 2022-01-11 [facility], Annalee Montoya [facility] 19:49:00 [place] POCT-GLUCOSE METER 2022-01-11 [facility], Annalee Montoya [facility] 17:57:00 [place] POCT-GLUCOSE METER 2022-01-11 [facility], Annalee Montoya [facility] 12:37:00 Center HEMODIALYSIS INPATIENT 2022-01-11 Rufina Owen [facility] 12:29:37 [facility] POCT-GLUCOSE METER 2022-01-11 Shieh, Annalee Montoya [facility] 07:49:00 [place] POCT-GLUCOSE METER 2022-01-10 Shieh, Annalee Montoya [facility] 21:16:00 Center POCT-GLUCOSE METER 2022-01-10 Shieh, Annalee Montoya [facility] 15:24:00 [place] IR TUNNEL CATHETER EXCHANGE 2022-01-10 JazzNatacha [facility] 11:23:00 [facility] POCT-GLUCOSE METER 2022-01-10 Shi, Annalee Montoya [facility] 11:21:00 [place] CBC W/PLT COUNT & AUTO 2022-01-10 Shieh, Annalee Montoya [facility] DIFFERENTIAL 04:13:00 [place] BASIC METABOLIC PANEL 2022-01-10 Shieh, Annalee Montoya [facility] 04:13:00 [place] MAGNESIUM 2022-01-10 Shieh, Annalee Montoya [facility] 04:13:00 Center PHOSPHORUS 2022-01-10 Shieh, Annalee Montoya [facility] 04:13:00 [place] APTT 2022-01-[address] [facility] ical 04:13:00 [place] CBC W/PLT COUNT & AUTO 2022-01-10 Shieh, Annalee Montoya [facility] DIFFERENTIAL 04:13:00 [place] POCT-GLUCOSE METER 2022-01-09 Shieh, Annalee Montoya [facility] 21:15:00 Center APTT 2022-01-09 Shieh, Annalee Montoya [facility] 19:08:00 [place] POCT-GLUCOSE METER 2022-01-09 Shieh, Annalee Montoya [facility] 17:02:00 Center POCT-GLUCOSE METER 2022-01-09 Shieh, Annalee Montoya [facility] 11:22:00 Center APTT 2022-01-09 Shieh, Annalee Montoya [facility] 09:44:00 [place] POCT-GLUCOSE METER 2022-01-09 Shieh, Annalee Montoya [facility] 07:19:00 Center POCT-GLUCOSE METER 2022-01-09 Maida, Annalee Montoya [facility] 05:05:00 [place] CBC W/PLT COUNT & AUTO 2022-01-09 Maida, Annalee Montoya [facility] DIFFERENTIAL 04:57:00 [place] BASIC METABOLIC PANEL 2022-01-09 Shieh, Annalee Mont[facility] 04:57:00 [place] MAGNESIUM 2022-01-09 Shieh, Annalee Montoya [facility] 04:57:00 [place] PHOSPHORUS 2022-01-09 Shieh, Annalee Jan [facility] 04:57:00 [place] CBC W/PLT COUNT & AUTO 2022-01-09 Shiartur, Annalee Montoya [facility] DIFFERENTIAL 04:57:00 [place] APTT 2022-01-09 Maida, Annalee Montoya [facility] 00:34:00 [place] POCT-GLUCOSE METER 2022-01-08 [facility], [facility] Montoya [facility] 16:49:00 [place] APTT 2022-01-08 [facility], Annalee Montoya [facility] 16:13:00 [place] HEMODIALYSIS INPATIENT 2022-01-08 Lexie, [facility] 15:47:52 [facility] HEPATITIS B SURFACE ANTIGEN 2022-01-08 Lexie, [facility] 15:40:00 [facility] HEPATITIS B SURFACE ANTIBODY 2022-01-08 Lexie, [facility] 15:40:00 [facility] POCT-GLUCOSE METER 2022-01-08 [facility] 12:18:00 [place] POCT-GLUCOSE METER 2022-01-08 [facility], Annalee Montoya [facility] 07:59:00 [place] CBC W/PLT COUNT & AUTO 2022-01-08 Deirdre, Annalee Montoya [facility] DIFFERENTIAL 05:27:00 [place] BASIC METABOLIC PANEL 2022-01-08 Shieh, Annalee Montoya [facility] 05:27:00 [place] MAGNESIUM 2022-01-08 Shieh, Annalee Montoya [facility] 05:27:00 [place] PHOSPHORUS 2022-01-[address] [facility] 05:27:00 [place] HEMOGLOBIN A1C 2022-01-[facility] 05:27:00 [place] CBC W/PLT COUNT & AUTO 2022-01-08 [address] Jan [facility] DIFFERENTIAL 05:27:00 [place] APTT 2022-01-[address] [facility] [facility] ical 05:26:00 [place] POCT-GLUCOSE METER 2022-01-07 Deirdre Annalee Montoya [facility] 21:01:00 [place] APTT 2022-01-07 Owens Joanna [facility] 21:00:00 [place] CARDIAC CATH REPORT - SCAN 2022-01-07 Provider, [facility] 00:00:00 Default Scanning Center EKG-SCANNED 2022-01-07 Provider, [facility] 00:00:00 Default Scanning [place] HEMODIALYSIS 2021-09-16 [facility]arm[facility] 20:36:27 Alexandru Das POC GLUCOSE 2021-09-16 Al-Lahiq, [facility] 15:59:00 POC GLUCOSE 2021-09-16 Al-Lahiq, [facility] 11:10:00 POC GLUCOSE 2021-09-16 Al-Lahiq, [facility] 01:24:00 POC GLUCOSE 2021-09-15 Al-Lahiq, [facility] 20:54:00 POC GLUCOSE 2021-09-15 Al-Lahiq, [facility] 16:27:00 POC GLUCOSE 2021-09-15 Al-Lahiq, [facility] 12:04:00 POC GLUCOSE 2021-09-15 Al-Lahiq, [facility] 11:16:00 POC GLUCOSE 2021-09-15 Al-Lahiq, [facility] 01:21:00 POC GLUCOSE 2021-09-14 Al-Lahiq, [facility] 21:57:00 POC GLUCOSE 2021-09-14 Al-Lahiq, [facility] 17:17:00 IR TUNNELED DIALYSIS CATHETER 2021-09-14 [facility] REPLACEMENT/EXCHANGE 13:59:03 Oliver-Eloy HEMODIALYSIS 2021-09-14 [facility] Hospit al 12:42:40 Alexandru Das POC GLUCOSE 2021-09-14 Al-Kaitlynq, [facility] Hospit al 11:19:00 BASIC METABOLIC PANEL 2021-09-14 [facility] 09:34:00 Alexandru Das ESTIMATED GFR 2021-09-14 [facility] 09:[facility]00 Alexandru Das ZZCOVID-19 ANTI-SPIKE IGG 2021-09-14 [facility] ANTIBODY TITER 03:25:00 Poornima TYPE AND SCREEN 2021-09-14 [facility] 03:25:00 Poornima ZZCOVID-19 SEROLOGY PATIENT 2021-09-14 [facility] SURVEILLANCE 03:25:00 Oliver-Eloy POC GLUCOSE 2021-09-14 Al-Velmanvq, [facility] Hospit al 01:33:00 POC GLUCOSE 2021-09-13 [facility], [facility] Hospit al 23:43:00 SURGICAL PATHOLOGY REQUEST 2021-09-13 [facility], [facility] 20:11:00 ESOPHAGOGASTRODUODENOSCOPY (EGD) 2021-09-13 [facility] 19:58:00 Shanon Thomasabena POC GLUCOSE 2021-09-13 [facility] Hospit al 17:23:00 POC GLUCOSE 2021-09-13 [facility], [facility] Hospit al 11:26:00 BASIC METABOLIC PANEL 2021-09-13 [facility] 10:25:00 Alexandru Das CBC WITH PLATELET AND 2021-09-13 [facility], [facility] DIFFERENTIAL 10:25:00 PARTIAL THROMBOPLASTIN TIME (PTT) 2021-09-[address] [facility] 10:25:00 ESTIMATED GFR 2021-09-13 [facility] al 10:25:00 Alexandru Das PROTHROMBIN TIME WITH INR 2021-09-13 Al-Lahiq, [facility] 10:25:00 POC GLUCOSE 2021-09-13 Al-Lahiq, [facility] 00:48:00 ECG 12-LEAD 2021-09-12 [facility] 23:22:14 Shanon Thomasi POC GLUCOSE 2021-09-12 Al-Lahiq, [facility] 22:53:00 POC GLUCOSE 2021-09-12 Al-Lahiq, [facility] 21:49:00 POC GLUCOSE 2021-09-12 Al-Lahiq, [facility] 16:57:00 POC GLUCOSE 2021-09-12 Al-Lahiq, [facility] 11:26:00 POC GLUCOSE 2021-09-12 Al-Lahiq, [facility] 11:01:00 BASIC METABOLIC PANEL 2021-09-12 [facility] 09:15:00 Alexandru Suo ESTIMATED GFR 2021-09-12 [facility] Hospit al 09:15:00 Alexandru Sharleneo HEMODIALYSIS 2021-09-12 [facility] Hospit al 02:06:24 Alexandru Nilorao POC GLUCOSE 2021-09-12 Al-Lahiq, [facility] Hospit al 01:05:00 POC GLUCOSE 2021-09-11 Al-Lahiq, [facility] 21:53:00 POC GLUCOSE 2021-09-11 Al-Lahiq, [facility] 16:41:00 HEMODIALYSIS 2021-09-11 [facility] Hospit al 15:53:24 Alexandru Laxmanrao POC GLUCOSE 2021-09-11 Al-Lahiq, [facility] Hospit al 11:14:00 KatelynnZCOVID-19 ANTI-SPIKE IGG 2021-09-11 [facility], [facility] ANTIBODY TITER 09:40:00 BASIC METABOLIC PANEL 2021-09-11 [facility] 09:40:00 Alexandru Jose Manuelmanrao HEMOGLOBIN A1C 2021-09-11 Al-Lahiq, [facility] 09:40:00 ZZCOVID-19 SEROLOGY PATIENT 2021-09-11 Al-Lahiq, [facility] SURVEILLANCE 09:40:00 CBC WITH PLATELET AND 2021-09-11 [facility], [facility] DIFFERENTIAL 09:40:00 ESTIMATED GFR 2021-09-11 [facility] 09:40:00 Alexandrulake Corcoranrao POC GLUCOSE 2021-09-11 Al-Lahiq, [facility] 00:39:00 POC GLUCOSE 2021-09-10 Al-Lahiq, [facility] 21:14:00 CORTISOL LEVEL, AM 2021-09-10 Al-Lahiq, [facility] 16:58:00 POC GLUCOSE 2021-09-10 Al-Lahiq, [facility] 15:59:00 POC GLUCOSE 2021-09-10 Al-Lahiq, [facility] 11:26:00 BASIC METABOLIC PANEL 2021-09-10 [facility] 09:55:00 Alexandru Nilorao ESTIMATED GFR 2021-09-10 [facility] Hospit al 09:55:00 Alexandru Laxmanrao POC GLUCOSE 2021-09-10 Al-Lahiq, [facility] 00:18:00 POC GLUCOSE 2021-09-09 Al-Lahiq, [facility] 21:28:00 POC GLUCOSE 2021-09-09 Al-Lahiq, [facility] 16:28:00 CT HEAD WO CONTRAST 2021-09-09 Al-Lahiq, [facility] 14:48:37 HEMODIALYSIS 2021-09-09 [facility] Hospit al 14:08:47 Alexandru Jose Manuelmanrao POC GLUCOSE 2021-09-09 Al-Lahiq, [facility] 11:30:00 BASIC METABOLIC PANEL 2021-09-09 [facility] 10:45:00 Alexandru Thiago ESTIMATED GFR 2021-09-09 [facility] Hospit al 10:45:00 Alexandru Niloo POC GLUCOSE 2021-09-09 Al-Lanvq, [facility] Hospit al 01:10:00 POC GLUCOSE 2021-09-08 Al-Lahiq, [facility] Hospit al 21:16:00 POC GLUCOSE 2021-09-08 Al-Lanvq, [facility] Hospit al 16:10:00 BASIC METABOLIC PANEL 2021-09-08 [facility] 09:27:00 MAGNESIUM LEVEL 2021-09-08 [facility] Hospit al 09:27:00 ESTIMATED GFR 2021-09-08 [facility] 09:27:00 GASTROINTESTINAL PATHOGENS PANEL, 2021-09-08 Kimmy [facility] PCR 02:15:00 POC GLUCOSE 2021-09-08 Al-Lanvq, [facility] Hospit al 01:30:00 BASIC METABOLIC PANEL 2021-09-07 [facility], [facility] 18:00:00 ESTIMATED GFR 2021-09-07 [facility], [facility] Hospit al 18:00:00 HEPATITIS B SURFACE ANTIGEN 2021-09-07 [facility] 18:00:00 Alexandru Das HEPATITIS B SURFACE AB, 2021-09-07 [facility] QUANTITATIVE 18:00:00 Alexandru Jose Manuelsherin XR CHEST 1 VW PORTABLE 2021-09-07 [facility] 16:47:43 XR ABDOMEN 1 VW 2021-09-07 [facility], [facility] Hospit al 16:47:22 HEMODIALYSIS 2021-09-07 Evelio [facility] Hospit al 16:16:15 POC GLUCOSE 2021-09-07 Al-Lanvq, [facility] Hospit al 11:07:00 TROPONIN T 2021-09-07 Trinidad Menard [facility] 03:35:00 Libia TROPONIN T 2021-09-07 Marley Cronin [facility] 00:00:00 RESPIRATORY PATHOGEN PANEL WITH 2021-09-06 [facility] COVID-19 RT-PCR 23:59:00 CT ABDOMEN PELVIS WO CONTRAST 2021-[facility]-06 [facility] 22:16:48 [facility] ED PRELIMINARY INTERPRETATION 2021-09-06 Mehrdad [facility] 21:23:51 ECG 12-LEAD 2021-09-06 [facility]ad [facility] 20:48:53 CBC WITH PLATELET AND 2021-09-06 [facility] DIFFERENTIAL 20:09:00 COMPREHENSIVE METABOLIC PANEL 2021-09-06 [facility] 20:09:00 ESTIMATED GFR 2021-09-06 Mehrdad [facility] 20:09:00 MAGNESIUM LEVEL 2021-09-06 [facility] Hospit al 20:09:00 TROPONIN T 2021-09-06 [facility] 20:09:00 PHOSPHORUS LEVEL 2021-09-06 [facility] true 20:09:00 POC GLUCOSE 2021-08-13 Kohln[facility], [facility] 16:22:00 Annalee POC GLUCOSE 2021-08-13 [facility]ln[facility], [facility] 11:17:00 Annalee XR CHEST 1 VW PORTABLE 2021-08-13 [facility] 11:13:27 BASIC METABOLIC PANEL 2021-08-13 [facility] 10:26:00 ESTIMATED GFR 2021-08-[address] [facility] 10:26[facility]00 POC GLUCOSE 2021-08-13 Kohln[facility]er, [facility] 00:38:00 [place] HEMODIALYSIS 2021-08-13 [facility] 00:09:24 NM AN ELECTIVE ENDOTRACHEAL 2021-08-[address] [facility] AIRWAY 23:45:00 INSERTION, CATHETER, DIALYSIS, 2021-08-12 Ru [facility] PERITONEAL, LAPAROSCOPIC 23:10:00 POC GLUCOSE 2021-08-12 Kohln[facility], [facility] 20:36:00 Annalee COVID-19 QUALITATIVE RT-PCR 2021-08-12 [facility] 17:35:00 POC GLUCOSE 2021-08-12 [facility]ln[facility], [facility] 15:58:00 [place]e POC GLUCOSE 2021-08-12 [facility]ln[facility], [facility] 11:07:00 [place]e ECG 12-LEAD 2021-08-12 Harry, [facility] 11:02:39 Ricky [place] BASIC METABOLIC PANEL 2021-08-12 [facility] 09:47:00 Alexandru Das ESTIMATED GFR 2021-08-12 [facility] 09:47:00 Alexandru Das POC GLUCOSE 2021-08-12 Kohln[facility]er, [facility] 00:51:00 [place]alee POC GLUCOSE 2021-08-11 [facility]ln[facility], [facility] 20:44:00 [place]e POC GLUCOSE 2021-08-11 Kohln[facility], [facility] 16:14:00 Annalee POC GLUCOSE 2021-08-11 Kohln[facility], [facility] 11:06:00 [place]e POC GLUCOSE 2021-08-11 [facility]ln[facility], [facility] 00:30:00 [place]alee POC GLUCOSE 2021-08-10 [facility]ln[facility], [facility] 20:48:00 [place]alee POC GLUCOSE 2021-08-10 [facility]ln[facility], [facility] 11:07:00 Annalee POC GLUCOSE 2021-08-10 [facility]ln[facility], [facility] 00:46:00 [place]e POC GLUCOSE 2021-08-09 [facility]ln[facility], [facility] 21:37:00 [place]e HEMODIALYSIS 2021-08-09 [facility] 17:13:01 Alexandrulake Das POC GLUCOSE 2021-08-09 [facility]ln[facility], [facility] 16:55:00 [place] POC GLUCOSE 2021-08-09 Tammy Dumont [facility] 11:19:00 Donna BASIC METABOLIC PANEL 2021-08-09 [facility] 10:52:00 Alexandru Das ESTIMATED GFR 2021-08-09 [facility] Hospit al 10:52:00 Alexandru Laxmanrao PROCALCITONIN 2021-08-09 Hyacinth Guthrie [facility] 02:51:00 POC GLUCOSE 2021-08-09 Tammy Dumont [facility] 00:26:00 Donna POC GLUCOSE 2021-08-08 Tammy Dumont [facility] 21:18:00 Donna POC GLUCOSE 2021-08-08 Tammy Dumont [facility] 19:34:00 Donna POC GLUCOSE 2021-08-08 Tammy Dumont [facility] 10:58:00 Donna DIGOXIN LEVEL 2021-08-08 StarRitu [facility] 10:46:00 [place] BASIC METABOLIC PANEL 2021-08-08 [facility] 10:46:00 Alexandru Laxmanrao ESTIMATED GFR 2021-08-08 [facility] Hospit al 10:46:00 Alexandru Laxmanrao POC GLUCOSE 2021-08-08 Tammy Dumont [facility] 02:06:00 Donna POC GLUCOSE 2021-08-07 Tammy Dumont [facility] 23:09:00 Donna HEMODIALYSIS 2021-08-07 [facility] Hospit al 20:13:07 Alexandru Laxmanrao POC GLUCOSE 2021-08-07 Tammy Dumont [facility] 15:50:00 Donna POC GLUCOSE 2021-08-07 Tammy Dumont [facility] 11:19:00 Donna CBC WITH PLATELET AND 2021-08-07 [facility] DIFFERENTIAL 11:15:00 Karie COMPREHENSIVE METABOLIC PANEL 2021-08-07 [facility] 11:15:00 Karie ESTIMATED GFR 2021-08-07 [facility] 11:15:00 Karie POC GLUCOSE 2021-08-07 Tammy Dumont [facility] 00:58:00 Donna HEMODIALYSIS 2021-08-06 [facility] Hospit al 21:36:17 Alexandru Laxmanrao POC GLUCOSE 2021-08-06 Mougouris, Taso [facility] 21:21:00 POC GLUCOSE 2021-08-06 Mougouris, Tas[facility] 15:39:00 BASIC METABOLIC PANEL 2021-08-06 [facility] 11:19:00 Alexandru Nilorao ESTIMATED GFR 2021-08-06 [facility] Hospit al 11:19:00 Alexandru Corcoranrao POC GLUCOSE 2021-08-06 Mougouris, [facility] 09:09:00 POC GLUCOSE 2021-08-06 [facility] 04:44:00 HEMODIALYSIS 2021-08-06 [facility] Hospit al 02:34:43 Alexandru Nilorao POC GLUCOSE 2021-08-06 Mougouris, Taso [facility] 01:09:00 XR CHEST 1 VW PORTABLE 2021-08-05 [facility] 23:40:00 POC GLUCOSE 2021-08-05 Mougouris, [facility] 21:24:00 OR FL < 1 HOUR [facility] AN ELECTIVE SUPRAGLOTTIC 2021-08-05 Juan [facility] 20:19:00 Izzy INSERTION, CATHETER, CENTRAL 2021-08-05 [facility] VENOUS, TUNNELED, FOR 20:13:00 HEMODIALYSIS TYPE AND SCREEN 2021-08-05 [facility] 20:09:00 POC GLUCOSE 2021-08-05 Mougouris, [facility] 15:43:00 ECG 12-LEAD 2021-08-05 [facility] 14:07:10 POC GLUCOSE 2021-08-05 [facility] 11:25:00 Edwin XR CHEST 1 VW PORTABLE 2021-08-05 [facility] [facility] 11:17[facility]10 CBC WITH PLATELET AND 2021-08-05 [facility] DIFFERENTIAL 10:45:00 Karie BASIC METABOLIC PANEL 2021-08-05 [facility] 10:45:00 Karie ESTIMATED GFR 2021-08-05 Lucero, Rupali [facility] true 10:45:00 Karie POC GLUCOSE 2021-08-05 [facility] Hospit al 00:57:00 Edwin POC GLUCOSE 2021-08-04 [facility] 16:51:00 Edwin XR ABDOMEN 1 VW 2021-08-04 Rupali [facility] true 16:40:00 Karie POC GLUCOSE 2021-08-04 [facility] 11:24:00 Donna HC COMPLETE BLD COUNT W/AUTO DIFF 2021-08-04 [facility] 11:06:00 Donna BASIC METABOLIC PANEL 2021-08-04 [facility] 11:06:00 Alexandru Laxmanrao MAGNESIUM LEVEL 2021-08-04 Rupali [facility] 11:06:00 Karie PHOSPHORUS LEVEL 2021-08-04 [facility]upali [facility] 11:06:00 Karie ESTIMATED GFR 2021-08-04 [facility] Hospit al 11:06:00 Alexandru Laxmanrao POC GLUCOSE 2021-08-04 [facility] 00:57:00 Donna POC GLUCOSE 2021-08-03 [facility] 21:36:00 Donna HEPATITIS B CORE ANTIBODY TOTAL 2021-08-03 [facility] 17:42:00 Alexandru Nilorao HEPATITIS B SURFACE AB, 2021-08-03 [facility] QUANTITATIVE 17:42:00 Alexandru Nilorao HEPATITIS C ANTIBODY 2021-08-03 [facility] 17:42:00 Alexandru Laxmanrao HEPATITIS B SURFACE ANTIGEN 2021-08-03 [facility] 17:42:00 Alexandru Laxmanrao POC GLUCOSE 2021-08-03 [facility] 16:38:00 Donna POC GLUCOSE 2021-08-03 [facility] 11:29:00 Donna HC COMPLETE BLD COUNT W/AUTO DIFF 2021-08-03 Ender Luc[facility] 11:03:00 Karie BASIC METABOLIC PANEL 2021-08-03 [facility] 11:03:00 Karie PHOSPHORUS LEVEL 2021-08-03 [facility] 11:03:00 Alexandru Das PARATHYROID HORMONE 2021-08-03 José Espino [facility] spital 11:03:00 Eltin ESTIMATED GFR 2021-08-03 [facility] 11:03:00 Karie POC GLUCOSE 2021-08-03 [facility] 00:22:00 Donna CV STRESS TEST NUCLEAR CARDIO 2021-08-02 [facility] 21:45:00 Bahaeddin A. NM MYOCARDIAL PERFUSION REST 2021-08-02 [facility] STRESS 1 DAY 21:45:00 Bahaeddin A. POC GLUCOSE 2021-08-02 [facility] 21:08:00 Donna POC GLUCOSE 2021-08-02 [facility] 16:34:00 Donna POC GLUCOSE 2021-08-02 [facility] 11:19:00 Donna COMPLETE BLD COUNT W/AUTO DIFF 2021-08-02 [facility] 09:43:00 Karie BASIC METABOLIC PANEL 2021-08-02 [facility] 09:43:00 Karie MAGNESIUM LEVEL 2021-08-02 [facility] 09:43[facility]00 Karie ESTIMATED GFR 2021-08-02 [facility] 09:43:00 Karie POC GLUCOSE 2021-08-02 [facility] 00:15:00 Donna POC GLUCOSE 2021-08-01 [facility] 20:02:00 Donna POC GLUCOSE 2021-08-01 [facility] 16:16:00 Donna POC GLUCOSE 2021-08-01 [facility] 11:16:00 Donna BASIC METABOLIC PANEL 2021-08-01 [facility] 10:56:00 Theresa MAGNESIUM LEVEL 2021-08-01 [facility] Hospit al 10:56:00 Theresa PHOSPHORUS LEVEL 2021-08-01 [facility] 10:56:00 Theresa HC COMPLETE BLD COUNT W/AUTO DIFF 2021-08-01 Ender Lucero [facility] 10:56:00 Karie ESTIMATED GFR 2021-08-01 [facility] 10:56:00 Theresa ECG 12-LEAD 2021-08-01 [facility] 08:03:48 Bahaeddin A. POC GLUCOSE 2021-08-01 [facility] 01:35:00 Donna TTE COMPLETE, WO CONTRAST, W 2021-07-31 [facility] DOPPLER ([id number]) 23:38:00 Bahaeddin A. POC GLUCOSE 2021-07-31 Tim [facility] Hospit al 22:40:00 Donna COVID-19 QUALITATIVE RT-PCR 2021-07-31 Rupali Lucero [facility] 17:14:00 Karie POC GLUCOSE 2021-07-31 Tim [facility] Hospit al 17:07:00 Donna POC GLUCOSE 2021-07-31 [facility] Hospit al 12:13:00 Donna B NATRIURETIC PEPTIDE 2021-07-[address] [facility] 11:34:00 Eltin BASIC METABOLIC PANEL 2021-07-[address] [facility] 11:34:00 Eltin HC COMPLETE BLD COUNT W/AUTO DIFF 2021-07-[address] [facility] 11:34:00 Eltin TROPONIN T 2021-07-31 [facility]00 Eltin ESTIMATED GFR 2021-07-31 [facility] Eltin Plan of Care Planned Activity Planned Date [...] Cessation Counseling and Screening (12+)] Future Scheduled 2022-11-04 SHINGLES VACCINES (2 [facility] Test 18:43:52 of 3) [code = SHINGLES VACCINES (2 of 3)] Future Scheduled 2022-11-04 BREAST CANCER [facility] Test 18:43:52 SCREENING [code = BREAST CANCER SCREENING] Future Scheduled 2022-11-04 COVID-19 VACCINE (4 - [facility] Test 18:43:52 Pfizer series) [code = COVID-19 VACCINE (4 - Pfizer series)] Future Scheduled 2022-11-04 INFLUENZA VACCINE [facility] Test 18:43:52 [code = INFLUENZA VACCINE] Future Scheduled 2022-11-04 [facility] for [facility] Test 18:43:52 malignant neoplasm of colon (procedure) [code = 135429557] Future Scheduled 2022-11-04 [facility] for [facility] Test 18:43:52 malignant neoplasm of colon (procedure) [code = 446595608] Future Scheduled 2022-11-04 [facility] Test 18:43:52 malignant neoplasm of colon (procedure) [code = 371698315] Future Scheduled 2022-11-04 DIABETIC FOOT EXAM [facility] Test 18:43:52 [code = DIABETIC FOOT EXAM] Future Scheduled 2022-11-04 [facility] 18:43:52 malignant neoplasm of colon (procedure) [code = 248852871] Future Scheduled 2022-11-04 [facility] Test 18:43:52 malignant neoplasm of colon (procedure) [code = 937211934] Future Scheduled 2022-11-04 DIABETES: RETINAL EYE [facility] Test 18:43:52 EXAM [code = DIABETES: RETINAL EYE EXAM] Future Scheduled 2022-09-27 DIABETIC FOOT EXAM [facility] Test 12:29:06 [code = DIABETIC FOOT EXAM] Future Scheduled 2022-09-27 COLONOSCOPY SCREENING [facility] Test 12:29:06 [code = COLONOSCOPY SCREENING] Future Scheduled 2022-09-27 DIABETES: RETINAL EYE [facility] Test 12:29:06 EXAM [code = DIABETES: RETINAL EYE EXAM] Future Scheduled 2022-09-27 SHINGLES VACCINES (1 Met [facility] Test 12:29:06 of 2) [code = SHINGLES VACCINES (1 of 2)] Future Scheduled 2022-09-27 BREAST CANCER [facility] Test 12:29:06 SCREENING [code = BREAST CANCER SCREENING] Future Scheduled 2022-09-27 COVID-19 VACCINE (4 - [facility] Test 12:29:06 Booster for Pfizer series) [code = COVID-19 VACCINE (4 - Booster for Pfizer series)] Future Scheduled 2022-09-27 INFLUENZA VACCINE [facility] Test 12:29:06 [code = INFLUENZA VACCINE] Future Scheduled 2022-09-27 DIABETIC FOOT EXAM [facility] Test 12:29:06 [code = DIABETIC FOOT EXAM] Future Scheduled 2022-09-27 COLONOSCOPY SCREENING [facility] Test 12:29:06 [code = COLONOSCOPY SCREENING] Future Scheduled 2022-09-27 DIABETES: RETINAL EYE [facility] Test 12:29:06 EXAM [code = DIABETES: RETINAL EYE EXAM] Future Scheduled 2022-09-27 SHINGLES VACCINES (1 Met [facility] Test 12:29:06 of 2) [code = SHINGLES VACCINES (1 of 2)] Future Scheduled 2022-09-27 BREAST CANCER [facility] Test 12:29:06 SCREENING [code = BREAST CANCER SCREENING] Future Scheduled 2022-09-27 COVID-19 [facility]ACCINE [facility] 12:29:06 Booster for Pfizer series) [code = COVID-19 VACCINE (4 - Booster for Pfizer series)] Future Scheduled 2022-09-27 INFLUENZA VACCINE [facility] Test 12:29:06 [code = INFLUENZA VACCINE] Future Scheduled 2022-09-27 DIABETIC FOOT EXAM [facility] Test 12:29:06 [code = DIABETIC FOOT EXAM] Future Scheduled 2022-09-27 COLONOSCOPY SCREENING [facility] Test 12:29:06 [code = COLONOSCOPY SCREENING] Future Scheduled 2022-09-27 DIABETES: RETINAL EYE [facility] Test 12:29:06 EXAM [code = DIABETES: RETINAL EYE EXAM] Future Scheduled 2022-09-27 SHINGLES VACCINES (1 Met [facility] Test 12:29:06 of 2) [code = SHINGLES VACCINES (1 of 2)] Future Scheduled 2022-09-27 BREAST CANCER [facility] Test 12:29:06 SCREENING [code = BREAST CANCER SCREENING] Future Scheduled 2022-09-27 COVID-19 VACCINE (4 - [facility] Test 12:29:06 Booster for Pfizer series) [code = COVID-19 VACCINE (4 - Booster for Pfizer series)] Future Scheduled 2022-09-27 INFLUENZA VACCINE [facility] Test 12:29:06 [code = INFLUENZA VACCINE] Future Scheduled 2022-08-20 DIABETIC FOOT EXAM [facility] Test 03:10:19 [code = DIABETIC FOOT EXAM] Future Scheduled 2022-08-20 COLONOSCOPY SCREENING [facility] Test 03:10:19 [code = COLONOSCOPY SCREENING] Future Scheduled 2022-08-20 DIABETES: RETINAL EYE [facility] Test 03:10:19 EXAM [code = DIABETES: RETINAL EYE EXAM] Future Scheduled 2022-08-20 SHINGLES VACCINES (1 Met [facility] Test 03:10:19 of 2) [code = SHINGLES VACCINES (1 of 2)] Future Scheduled 2022-08-20 BREAST CANCER [facility] Test 03:10:19 SCREENING [code = BREAST CANCER SCREENING] Future Scheduled 2022-08-20 COVID-19 VACCINE (4 - Me [facility] Test 03:10:19 Booster for Pfizer series) [code = COVID-19 VACCINE (4 - Booster for Pfizer series)] Future Scheduled 2022-08-20 INFLUENZA VACCINE [facility] Test 03:10:19 [code = INFLUENZA VACCINE] Future Scheduled 2022-07-19 DIABETIC FOOT EXAM [facility] Test 07:26:52 [code = DIABETIC FOOT EXAM] Future Scheduled 2022-07-19 COLONOSCOPY SCREENING [facility] Test 07:26:52 [code = COLONOSCOPY SCREENING] Future Scheduled 2022-07-19 DIABETES: RETINAL EYE [facility] Test 07:26:52 EXAM [code = DIABETES: RETINAL EYE EXAM] Future Scheduled 2022-07-19 SHINGLES VACCINES (1 Met [facility] Test 07:26:52 of 2) [code = SHINGLES VACCINES (1 of 2)] Future Scheduled 2022-07-19 BREAST CANCER [facility] Test 07:26:52 SCREENING [code = BREAST CANCER SCREENING] Future Scheduled 2022-07-19 COVID-19 VACCINE (4 - Me [facility] Test 07:26:52 Booster for Pfizer series) [code = COVID-19 VACCINE (4 - Booster for Pfizer series)] Future Scheduled 2022-07-19 INFLUENZA VACCINE [facility] Test 07:26:52 [code = INFLUENZA VACCINE] [...] SCREENING] Future Scheduled 2022-05-17 DIABETIC FOOT EXAM [facility] Test 10:42:08 [code = DIABETIC FOOT EXAM] Future Scheduled 2022-05-17 COLONOSCOPY SCREENING [facility] Test 10:42:08 [code = COLONOSCOPY SCREENING] Future Scheduled 2022-05-17 DIABETES: RETINAL EYE [facility] Test 10:42:08 EXAM [code = DIABETES: RETINAL EYE EXAM] Future Scheduled 2022-05-17 SHINGLES VACCINES (1 Met [facility] Test 10:42:08 of 2) [code = SHINGLES VACCINES (1 of 2)] Future Scheduled 2022-05-17 BREAST CANCER [facility] Test 10:42:08 SCREENING [code = BREAST CANCER SCREENING] Future Scheduled 2022-05-17 COVID-19 VACCINE (4 - Me [facility] Test 10:42:08 Booster for Pfizer series) [code = COVID-19 VACCINE (4 - Booster for Pfizer series)] Future Scheduled 2022-05-17 INFLUENZA VACCINE [facility] Test 10:42:08 [code = INFLUENZA [...] [facility] breast (procedure) [code = 388613754] Future Scheduled [address] [facility] 00:00:00 (combo) [code = CT Medical C enter Colonography (combo)] Future Scheduled [address] [facility] 00:[facility]:00 malignant neoplasm of [facility]ica [facility] Center colon (procedure) [code = 740674938] Future Scheduled [address] [facility] Test 00:00:00 malignant neoplasm of [facility]ica [facility] Center colon (procedure) [code = 736956301] Future Scheduled 1948 DXA SCAN [code = DXA [facility] Test 00:00:00 SCAN] [facility] Future Scheduled [address] [facility] Test 00:00:00 malignant neoplasm of [facility] Center colon (procedure) [code = 398365857] Future Scheduled [address] [facility] Test 00:00:00 malignant neoplasm of [facility] Center colon (procedure) [code = 204268852] Future Scheduled 1948 Sigmoidoscopy [facility] Future Scheduled [address] [facility] Test 00:00:00 malignant neoplasm of [facility]ica [facility] Center breast (procedure) [code = 111322104] Future Scheduled [address] [facility] Test 00:00:00 (combo) [code = CT Medical C enter Colonography (combo)] Future Scheduled [address] [facility] Test 00:00:00 malignant neoplasm of [facility]ica [facility] Center colon (procedure) [code = 115729179] Future Scheduled [address] [facility] Test 00:00:00 malignant neoplasm of [facility]ica [facility] Center colon (procedure) [code = 959626628] Future Scheduled 1948 DXA SCAN [code = DXA [facility] Test 00:00:00 SCAN] [facility] Future Scheduled [address] [facility] Test 00:00:00 malignant neoplasm of Medica [facility] Center colon (procedure) [code = 199449942] Future Scheduled [address] [facility] Test 00:00:00 malignant neoplasm of [facility]ica [facility] Center colon (procedure) [code = 060747508] Future Scheduled 1948 [facility]] [facility] Future Scheduled [address] [facility] Test 00:00:00 malignant neoplasm of [facility]ica [facility] Center breast (procedure) [code = 637898504] Future Scheduled [address] [facility] 00:00:00 (combo) [code = CT Medical C enter Colonography (combo)] Future Scheduled [address] [facility] Test 00:00:00 malignant neoplasm of [facility]ica [facility] Center colon (procedure) [code = 379021663] Future Scheduled [address] [facility] Test 00:00:00 malignant neoplasm of [facility]ica [facility] Center colon (procedure) [code = 734064157] Future Scheduled 1948 DXA SCAN [code = DXA [facility] Test 00:00:00 SCAN] [facility] Future Scheduled [address] [facility] Test 00:00:00 malignant neoplasm of [facility]ica [facility] Center colon (procedure) [code = 990117032] Future Scheduled [address] [facility] Test 00:00:00 malignant neoplasm of [facility]ica [facility] Center colon (procedure) [code = 860967632] Future Scheduled 1948 [facility]oidoscopy [facility]] [facility] Future Scheduled [address] [facility] Test 00:00:00 malignant neoplasm of [facility]ica [facility] Center breast (procedure) [code = 741848777] Future Scheduled [address] [facility] Test 00:00:00 (combo) [code = CT Medical C enter Colonography (combo)] Future Scheduled [address] [facility] Test 00:00:00 malignant neoplasm of [facility]ica [facility] Center colon (procedure) [code = 228673550] Future Scheduled [address] [facility] Test 00:00:00 malignant neoplasm of [facility]ica [facility] Center colon (procedure) [code = 434637260] Future Scheduled 1948 DXA SCAN [code = DXA [facility] Test 00:00:00 SCAN] [facility] Future Scheduled [address] [facility] Test 00:00:00 malignant neoplasm of Medica [facility] Center colon (procedure) [code = 434225348] Future Scheduled [address] [facility] Test 00:00:00 malignant neoplasm of Medica [facility] Center colon (procedure) [code = 183522840] Future Scheduled 1948 [facility]oidoscopy [facility]] [facility] Future Scheduled [address] [facility] Test 00:00:00 malignant neoplasm of Medica [facility] Center breast (procedure) [code = 641635778] Future Scheduled [address] [facility] 00:00:00 (combo) [code = CT Medical C enter Colonography (combo)] Future Scheduled [address] [facility] Test 00:00:00 malignant neoplasm of Medica [facility] Center colon (procedure) [code = 260297488] Future Scheduled [address] [facility] Test 00:00:00 malignant neoplasm of [facility]ica [facility] Center colon (procedure) [code = 799208258] Future Scheduled 1948 DXA SCAN [code = DXA [facility] Test 00:00:00 SCAN] [facility] Future Scheduled [address] [facility] Test 00:00:00 malignant neoplasm of [facility]ica [facility] Center colon (procedure) [code = 767393478] Future Scheduled [address] [facility] Test 00:00:00 malignant neoplasm of [facility]ica [facility] Center colon (procedure) [code = 074152475] Future Scheduled 1948 [facility]oidoscopy [facility]] [facility] Future Scheduled [address] [facility] Test 00:00:00 malignant neoplasm of [facility]ica [facility] Center breast (procedure) [code = 530739510] Future Scheduled [address] [facility] 00:00:00 (combo) [code = CT Medical C enter Colonography (combo)] Future Scheduled [address] [facility] Test 00:00:00 malignant neoplasm of [facility]ica [facility] Center colon (procedure) [code = 051990753] Future Scheduled [address] [facility] Test 00:00:00 malignant neoplasm of [facility]ica [facility] Center colon (procedure) [code = 020502119] Future Scheduled 1948 DXA SCAN [code = DXA [facility] Test 00:00:00 SCAN] [facility] Future Scheduled [address] [facility] Test 00:00:00 malignant neoplasm of Medica [facility] Center colon (procedure) [code = 191550459] Future Scheduled [address] [facility] Test 00:00:00 malignant neoplasm of [facility]ica [facility] Center colon (procedure) [code = 916412947] Future Scheduled 1948 [facility]oidoscopy [facility] 00:[facility]oscopy] Medical Elliotte r Future Scheduled [address] [facility] Test 00:00:00 malignant neoplasm of Medica [facility] Center breast (procedure) [code = 949347320] Future Scheduled [address] [facility] 00:00:00 (combo) [code = CT Medical C enter Colonography (combo)] Future Scheduled [address] [facility] Test 00:00:00 malignant neoplasm of Medica l Center colon (procedure) [code = 311131155] Future Scheduled [address] [facility] Test 00:00:00 malignant neoplasm of Medica [facility] Center colon (procedure) [code = 632459792] Future Scheduled 1948 DXA SCAN [code = DXA [facility] Test 00:00:00 SCAN] [facility] Future Scheduled [address] [facility] Test 00:00:00 malignant neoplasm of Medica l Center colon (procedure) [code = 964987569] Future Scheduled [address] [facility] Test 00:00:00 malignant neoplasm of Medica l Center colon (procedure) [code = 353970408] Future Scheduled 1948 [facility]oidoscopy [facility] 00:[facility] S[facility]oscopy] Medical Felipe r Encounters Start End Encounter Admission Attending Care Care Encounter Source Date/Time Date/Time Type Type Clinicians Facility Department ID 2022-10-09 Outpatient 3 [id number] [facility] RE[facility] [id number] [facility] 14:26:14 [facility] 2022-10-08 Outpatient 3 [id number] E[facility] REF [id number] [facility] 10:03:46 [facility] [place] 2022-06-08 Inpatient EL Alfredo, HCACL DAYS [id number] [facility] 09:00:00 Greg 07 [facility] 2022-01-[address] [facility] Vascular [id number] [facility] 13:58:43 [facility] 2021-11-04 Outpatient [facility] [id number] [place] 14:10:46 [id number] [facility] 2021-08-11 Outpatient [facility] [id number] [place] 09:26:19 [id number] [facility] 2022-10-10 2022-10-26 Inpatient 3 DONTE PhilippePL CRD [id number] [facility] 17:08:00 11:30:00 Anirudh 0522 [facility] [place] 2022-07-05 2022-07-05 Orders Doctor MACKENZIE [id number] Univers 00:00:00 00:00:00 Only Unassigned, YARELI 350.1.13.10 [facility]y [facility] 4.2.7.2.686 Kev as [phone] [address] 2022-04-01 2022-04-01 Orders Doctor MACKENZIE [id number] [id number] Univers 00:00:00 00:00:00 Only Unassigned, YARELI 350.1.13.10 [facility]y of [facility] 4.2.7.2.686 Kev as [phone] [address] 2022-03-24 2022-03-24 Telephone Eran LAJET [id number] Univers 00:00:00 00:00:00 Luc S HEALTH 350.1.13.10 it y of [place] 4.2.7.2.686 Kev as MARISA?BLEA [phone] Va garcía LEMA [address] [facility] OFFICE [facility] 2022-03-23 2022-03-23 Telephone Eran LAJET [id number] Univers 00:00:00 00:00:00 Luc S HEALTH 350.1.13.10 it y of [place] 4.2.7.2.686 Kev as MARISA?BLEA [phone] Va garcía LEMA 198 [facility] OFFICE [facility] 2022-03-18 2022-03-18 [facility]phone [facility] 1.2.840.114 [id number] Univers 00:00:00 00:00:00 Alannah Conrad [facility] 350.1.13.10 it y of [place] 4.2.7.2.686 Kev as MARISA?BLEA [phone] Va garcía LOVE [address] [place] [address] OFFICE BUILDING 2022-03-16 2022-03-16 Telephone [facility] 1.2.840.114 [id number] Univers 00:00:00 00:00:00 Alannah Conrad SPECIALTY 350.1.13.10 ity of [facility] 4.2.7.2.686 [facility] [place] AT [phone] Va garcía [place] [address] [place] [address] 2022-01-07 2022-01-18 Inpatient [facility] [id number] [facility] 17:48:00 16:48:00 ANNALEE 2022-01-07 2022-01-18 [facility] UR Annalee Bey [facility] [id number] [facility] 17:48:00 16:48:00 Encounter Mauro Mendoza [facility] 2022-01-07 2022-01-07 Travel [facility] [id number] [facility] 00:[facility] 00:00:00 [facility] 2022-01-02 2022-01-02 [facility] [id number] Univers 00:00:00 00:00:00 ALANNAH [facility] 2021-09-06 2021-09-16 Hospital Trinidad Menard 1.2.840.1 [id number] Methodi 14:46:00 18:55:00 Encounter Corrine Osuna [id number] 3.430.2.7 Hospit a .3.440681 l .8 2021-09-13 2021-09-13 Anesthesia Natasha 1.2.840.1 [id number] Methodi 14:58:00 15:19:00 Event Edwin 69610.1.[address] Alannah 3.430.2.7 Hospit a .3.637548 l .8 2021-09-13 2021-09-13 Surgery John, 1.2.840.1 [id number] Methodi 14:22:00 14:27:[address] Ongeri 3.430.2.7 Hospit a .3.123227 l .8 2021-09-06 2021-09-06 Travel 1.2.840.1 [id number] [id number] Methodi 00:00:00 00:00:[id number] 3.430.2.7 0.2.7.3.698 Ho nestor .3.407137 084.8 l .8 2021-07-31 2021-08-13 Hospital Tammy Dumont 1.2.840.1 [id number] Methodi 04:12:00 19:46:00 Encounter Edwin Ayers 11854.1.[address] Juan RottoTasneem leonard 3.430.2.7 Hospita Annalee Nuñez .3.000106 l .8 2021-08-12 2021-08-12 Anesthesia Leodan Rebolledo 1.2.840.1 [id number] Methodi 18:09:00 19:38:[address] 3.430.2.7 Hospit a .3.540848 l .8 2021-08-12 2021-08-12 Surgery Ru, 1.2.840.1 [id number] Methodi 17:35:00 18:50:[address] 3.430.2.7 Hospit a .3.806756 l .8 2021-08-05 2021-08-05 Anesthesia Andre Navarro 1.2.840.1 [id number] Methodi 15:12:00 16:16:00 Event Grazyna Martinez 75561.1.[address] 3.430.2.7 Hospit a .3.668787 l .8 2021-08-05 2021-08-05 Surgery Abbie, 1.2.840.1 [id number] Methodi 15:20:00 16:05:[address] 3.430.2.7 Hospit a .3.925550 l .8 2021-08-02 2021-08-02 Documentat Provider, 1.2.840.1 [id number] Methodi 00:00:00 00:00:00 ion Unknown 40044.1.[address] 3.430.2.7 Hospit a .3.401057 l .8 2021-07-14 2021-07-14 [facility] 1.2.840.1 [id number] Methodi 00:00:00 00:00:00 Orders , Zulema 10332.1.[address] 3.430.2.7 Hospit a .3.415393 l .8 2021-06-10 2021-06-10 Clinical 1.2.840.1 [id number] Methodi 15:45:00 15:58:[address] 3.430.2.7 Hospit a .3.966590 l .8 2021-06-10 2021-06-10 Travel 1.2.840.1 1.2.577.094 2671 [id number] Methodi 00:00:00 00:00:[address] 3.430.2.7 0.2.7.3.698 Ho spita .3.531777 084.8 l .8 2021-06-09 2021-06-09 Outpatient Daniel_T VFP VFP [id number] 02-08 [facility] 11:40:00 11:40:00 [id number] Family Practic e 2021-06-01 2021-06-04 Outpatient THAO, [facility] 064 [id number] 90019 [place] 00:00:00 00:00:00 CORRINE [address] 2020-08-05 2020-08-05 Outpatient VANDA [facility] [id number] [place] 00:00:00 00:00:00 , ZULEAM [address] 2020-07-09 2020-07-09 Outpatient [facility] [id number] 034 [place] 00:00:00 00:00:[address] 2020-06-18 2020-06-18 Outpatient [facility] [id number] 844 [place] 00:00:00 00:00:[address] 2020-04-05 2020-04-06 Outpatient AL-LAHIQ, [place] [address] 86065 12074 [place] 00:00:00 00:00:00 MAHA [address] 2020-03-22 2020-03-25 Inpatient AL-LAHIQ, [place] [address] [id number] 1091 [place] 00:00:00 00:00:00 MAHA [address] 2020-02-27 2020-02-27 Outpatient BHUMI, [facility] [id number] 2704 [place] 00:00:00 00:00:00 DAVID [address] 2020-02-17 2020-02-18 Outpatient AL-LAHIQ, [place] [address] 60225 34093 [place] 00:00:00 00:00:00 MAHA [address] 2020-01-17 2020-01-18 Emergency JOSE A, [place] [address] [id number] 46 [place] 00:00:00 00:00:00 SHAKEEL [address] 2019-10-23 2019-10-26 Inpatient AL-LAHIQ, [facility] 064 [id number] 5961 [place] 00:00:00 00:00:00 MAHA [address] 2019-08-05 2019-08-05 Outpatient FRIEND-MICHAEL [facility] 867 [id number] [place] 00:00:00 00:00:00 , ZULEMA [address] 2019-07-10 2019-07-12 Inpatient AL-LAHIQ, [facility] [id number] 3691 [place] 00:00:00 00:00:00 MAHA [address] 2019-03-27 2019-03-30 Outpatient TEQWIMDORIS, [facility] 2100 [id number] [place] 00:00:00 00:00:00 SARAI [address] Results Test Description Test Time Test Comments Results Result Comments Source POC-Glucose meter 2022-01-18 12:22:13 Test Item Value Reference Range Interpretation Comme nts POC-Glucose Meter (test code = 102 mg/dL 70-110 : TESTED AT [facility] [address] [facility] 1538) [place] [address]: Breakfast Host/Techni faviola ID = [id number] for Yelling, Yoland a Lab Interpretation (test code = Normal 25848-8) [facility] [id number] 12:22:13 Test Item Value Reference Range Interpretation Comments POC-Glucose Meter (test 102 mg/dL 70-110 : TE STED AT [facility] code = 1538) [address] [place] [address]: Breakfast Host/Techni faviola ID = [id number] for Yelling, [place]oland a Lab Interpretation (test Normal code = 84535-0) [facility] [id number] 12:22:13 Test Item Value Reference Range Interpretation Comments POC-Glucose Meter (test 102 mg/dL 70-110 : TE STED AT [facility] code = 1538) [address] [place] [address]: Breakfast Host/Techni faviola ID = [id number] for Yelling, [place]oland a Lab Interpretation (test Normal code = 76772-7) [facility] [id number] 12:22:13 Test Item Value Reference Range Interpretation Comments POC-Glucose Meter (test 102 mg/dL 70-110 : TE STED AT [facility] code = 1538) [address] [place] [address]: Breakfast Host/Techni faviola ID = [id number] for Yelling, [place]and a Lab Interpretation (test Normal code = 54999-0) [facility] [id number] 12:22:13 Test Item Value Reference Range Interpretation Comments POC-Glucose Meter (test 102 mg/dL 70-110 : TE STED AT [facility] code = 1538) [address] [place] [address]: Breakfast Host/Techni faviola ID = [id number] for Yelling, [place]and a Lab Interpretation (test Normal code = 84810-0) [facility] [id number] 12:22:13 Test Item Value Reference Range Interpretation Comments POC-Glucose Meter (test 102 mg/dL 70-110 : TE STED AT [facility] code = 1538) [address] [facility] [address]: Breakfast Host/Techni faviola ID = [id number] for Riching, [place] a Lab Interpretation (test Normal code = 39574-2) [facility] [id number] 12:22:13 Test Item Value Reference Range Interpretation Comments POC-Glucose Meter (test 102 mg/dL 70-110 : TE STED AT [facility] code = 1538) 1317 [place] 447618: Breakfast Host/Techni faviola ID = [id number] for Yelling, Yoland a Lab Interpretation (test Normal code = 16655-1) [facility]-GLUCOSE [id number] 12:22:13 Test Item Value Reference Range Interpretation Comments POC-GLUCOSE METER 102 mg/dL 70-110 : TESTED A T [facility] 1317 (BEAKER) (test code [facility], = 1538) [place] [address]: Breakfast Host/Techni faviola ID = [id number] for Rich ingMaxZuri BASIC METABOLIC [id number] 06:40:34 Test Item Value Reference Range Interpretation [...] not appl icable for dialysis patien ts Breakfast Host ID - [id number] ID - [id number] ID - [id number] ID - [id number] ID - IRTQBKRCS136Ujzhdiep ID - JVZGFNMFC452Dvysuuoa ID - SPTCTKZFF946Yuwkiwzq ID - [id number] ID - [id number] ID - IGAWEAMJQ065Kyrfxbaj ID - [id number] ID - [id number] ID - [id number]-DICEVEJ [id number] 19:58:07 Test Item Value Reference Range Interpretation Comments POC-GLUCOSE METER 126 mg/dL 70-110 H : TESTED A T [facility] 1317 ([facility]) (test code [facility], = 1538) [place] [address]: Breakfast Host/Techni faviola ID = [id number] for Ina Agrawal POCT-GLUCOSE [id number] 17:18:36 Test Item Value Reference Range Interpretation Comments POC-GLUCOSE METER 128 mg/dL 70-110 H : Notified RN/MD: TESTED ([facility]) (test code AT [facility] [address] = 1538) [facility] [address]: Breakfast Host/Techni faviola ID = [id number] for Thak er, Nikitaben POCT-GLUCOSE [id number] 12:27:16 Test Item Value Reference Range Interpretation Comments POC-GLUCOSE METER 141 mg/dL 70-110 H : TESTED A T [facility] 1317 ([facility]) (test code [facility], = 1538) [facility] 77 [address]: Breakfast Host/Techni faviola ID = [id number] for Thak er, Nikitaben POCT-GLUCOSE [id number] 08:42:44 Test Item Value Reference Range Interpretation Comments POC-GLUCOSE METER 152 mg/dL 70-110 H : Notified RN/MD: TESTED (BEAKER) (test code AT [facility] [address] = 1538) GE [facility] [address]: Breakfast Host/Techni faviola ID = [id number] for Sunita Alaniz BASIC METABOLIC [id number] 05:53:56 Test Item Value Reference Range Interpretation [...] decreased 60-89 G3a Mildl y to moderately 45- 59 G3b Moderately to s everely 30-44 G4 Severl y decreased 15-29 G5 Kidney failure <15Reported eGF R is based on the CKD-EPI 2020 equation that d oes not use a race coefficientEsti mated GFR is not as accur ate as Creatinine Nilda tamayo in predicting glom erular filtration rate . Estimated GFR is not appl icable for dialysis patien ts Breakfast Host ID - [id number] ID - [id number] ID - [id number] ID - [id number] ID - [id number] ID - [id number] ID - WQSRPEJZK283Ocscsjmj ID - VPAKKXKWP113Wchlizpp ID - [id number] ID - [id number] ID - JZDVQRBMH487Npyzlndj ID - [id number] ID - [id number]-GJCIPHA [id number] 20:28:58 Test Item Value Reference Range Interpretation Comments POC-GLUCOSE METER 184 mg/dL 70-110 H : TESTED A T [facility] [address] (BEAKER) (test code [address], = 1538) [place] [address]: Breakfast Host/Techni faviola ID = [id number] for Ina Agrawal POCT-GLUCOSE [id number] 15:57:54 Test Item Value Reference Range Interpretation Comments POC-GLUCOSE METER 187 mg/dL 70-110 H : TESTED A T [facility] [address] (BEAKER) ([facility], = 1538) [place] [address]: Breakfast Host/Techni faviola ID = [id number] for Ej vergara Aileen POCT-GLUCOSE [id number] 11:57:54 Test Item Value Reference Range Interpretation Comments POC-GLUCOSE METER 163 mg/dL 70-110 H : TESTED A T [facility] [address] (BEAKER) (test code [address], = 1538) [place] [address]: Breakfast Host/Techni faviola ID = [id number] for Ej vergara, Aileen POCT-GLUCOSE [id number] 07:59:00 Test Item Value Reference Range Interpretation Comments POC-GLUCOSE METER 129 mg/dL 70-110 H : TESTED A T [facility] [address] (BEAKER) ([facility] [address] [facility], = 1538) [place] [address]: Breakfast Host/Techni faviola ID = [id number] for Ej vergara, Aileen POCT-GLUCOSE [id number] 20:24:24 Test Item Value Reference Range Interpretation Comments POC-GLUCOSE METER 185 mg/dL 70-110 H : TESTED A T [facility] [address] (BEAKER) (test code [address], = 1538) [place] [address]: Breakfast Host/Techni faviola ID = [id number] for Renny Agustin perea POCT-GLUCOSE [id number] 18:05:34 Test Item Value Reference Range Interpretation Comments POC-GLUCOSE METER 126 mg/dL 70-110 H : TESTED A T [facility] [address] (BEAKER) (test code [address], = 1538) [place] [address]: Breakfast Host/Techni faviola ID = [id number] for Jhoan Leijali POCT-GLUCOSE [id number] 12:43:19 Test Item Value Reference Range Interpretation Comments POC-GLUCOSE METER 154 mg/dL 70-110 H : TESTED A T [facility] [address] (BEAKER) (test code [address], = 1538) [place] [address]: Breakfast Host/Techni faviola ID = [id number] for Jhoan Leijali POCT-GLUCOSE [id number] 07:44:17 Test Item Value Reference Range Interpretation Comments POC-GLUCOSE METER 142 mg/dL 70-110 H : TESTED A T [facility] [address]17 (BEAKER) (test code [address], = 1538) [place] [address]: Breakfast Host/Techni faviola ID = [id number] for Jhoan Leijali BASIC METABOLIC [id number] 05:55:22 Test Item Value Reference Range Interpretation [...] not appl icable for dialysis patien ts Breakfast Host ID - LITOOperator ID - LITOOperator ID - LITOOperator ID - LITOOperator ID - LITOOperator ID - LITOOperator ID - LITOOperator ID - LITOOperator ID - LITOOperator ID - LITOOperator ID - LITOOperator ID - LITOOperator ID - MARTÍN POCT-GLUCOSE [id number] 20:53:58 Test Item Value Reference Range Interpretation Comments POC-GLUCOSE METER 194 mg/dL 70-110 H : TESTED A T [facility] [address] (BEAKER) (test code [address], = 1538) [place] [address]: Breakfast Host/Techni faviola ID = [id number] for Aileen Loja POCT-GLUCOSE [id number] 15:49:19 Test Item Value Reference Range Interpretation Comments POC-GLUCOSE METER 171 mg/dL 70-110 H : TESTED A T [facility] [address] (BEAKER) (test code [address], = 1538) [place] [address]: Breakfast Host/Techni faviola ID = [id number] for Aileen Loja SARS-CoV2/RT-PCR (Asymptomatic ONLY)2022-01-14 15:42:35 Test Item Value Reference Interpretation Comments Range SARS-COV2/RT-PCR Negative Negative The SARS-Co V-2 (test code = target nucleic 45237-0) acids are not detected in [facility] s specimen. Negat eveline results do [...] revoked sooner. Fact Sheet for Healthcare Providers: https://www.Lenskart.com/Documents/Xp ert%20Xpress%20SAR S%20CoV-2/Fact%20S heets/302-3802%20S ARS-COV-2%20HEALTH CARE%20PROVIDERS%2 0FACT%20SHEET.pdf Fact Sheet for Healthcare Patients: https://wwwJunk4Junk/Documents/Xp ert%20Xpress%20SAR S%20CoV-2/Fact%20S heets/302-3801%20S ARS-COV-2%20PATIEN T%20FACT%20SHEET.p df Lab Interpretation Normal (test code = 08266-4) [facility]22-[facility]-14 15:42:35 Test Item Value Reference Interpretation Comments Range SARS-COV2/RT-PCR Negative Negative The SARS-Co V-2 (test code = target nucleic 65182-7) acids are not detected in thi s [...] revoked sooner. Fact Sheet for Healthcare Providers: https://www.Lenskart.com/Documents/Xp ert%20Xpress%20SAR S%20CoV-2/Fact%20S heets/302-3802%20S ARS-COV-2%20HEALTH CARE%20PROVIDERS%2 0FACT%20SHEET.pdf Fact Sheet for Healthcare Patients: https://www.Lensk[employer].com/Documents/Xp ert%20Xpress%20SAR S%20CoV-2/Fact%20S heets/302-3801%20S ARS-COV-2%20PATIEN T%20FACT%20SHEET.p df Lab Interpretation Normal (test code = 13807-6) [facility]2022-01-14 15:42:35 Test Item Value Reference Interpretation Comments Range SARS-COV2/RT-PCR Negative Negative The SARS-Co V-2 (test code = target nucleic 52104-4) acids are not detected in thi s [...] revoked sooner. Fact Sheet for Healthcare Providers: https://www.Lenskart.com/Documents/Xp ert%20Xpress%20SAR S%20CoV-2/Fact%20S heets/302-3802%20S ARS-COV-2%20HEALTH CARE%20PROVIDERS%2 0FACT%20SHEET.pdf Fact Sheet for Healthcare Patients: https://www.Lenskart.com/Documents/Xp ert%20Xpress%20SAR S%20CoV-2/Fact%20S heets/302-3801%20S ARS-COV-2%20PATIEN T%20FACT%20SHEET.p df Lab Interpretation Normal (test code = 55141-3) [facility]2022-01-14 15:42:35 Test Item Value Reference Interpretation Comments Range SARS-COV2/RT-PCR Negative Negative The SARS-Co V-2 (test code = target nucleic 89128-1) acids are not detected in thi s [...] revoked sooner. Fact Sheet for Healthcare Providers: https://www.Lenskart.com/Documents/Xp ert%20Xpress%20SAR S%20CoV-2/Fact%20S heets/302-3802%20S ARS-COV-2%20HEALTH CARE%20PROVIDERS%2 0FACT%20SHEET.pdf Fact Sheet for Healthcare Patients: https://www.Lenskart.com/Documents/Xp ert%20Xpress%20SAR S%20CoV-2/Fact%20S heets/302-3801%20S ARS-COV-2%20PATIEN T%20FACT%20SHEET.p df Lab Interpretation Normal (test code = 96274-8) [facility]2022-01-14 15:42:35 Test Item Value Reference Interpretation Comments Range SARS-COV2/RT-PCR Negative Negative The SARS-Co V-2 (test code = target nucleic 07682-9) acids are not detected in thi s [...] revoked sooner. Fact Sheet for Healthcare Providers: https://www.Lenskart.com/Documents/Xp ert%20Xpress%20SAR S%20CoV-2/Fact%20S heets/302-3802%20S ARS-COV-2%20HEALTH CARE%20PROVIDERS%2 0FACT%20SHEET.pdf Fact Sheet for Healthcare Patients: https://www.Lenskart.com/Documents/Xp ert%20Xpress%20SAR S%20CoV-2/Fact%20S heets/302-3801%20S ARS-COV-2%20PATIEN T%20FACT%20SHEET.p df Lab Interpretation Normal (test code = 97962-9) [facility]2022-01-14 15:42:35 Test Item Value Reference Interpretation Comments Range SARS-COV2/RT-PCR Negative Negative The SARS-Co V-2 (test code = target nucleic 04692-1) acids are not detected in thi s [...] revoked sooner. Fact Sheet for Healthcare Providers: https://www.Lenskart.com/Documents/Xp ert%20Xpress%20SAR S%20CoV-2/Fact%20S heets/302-3802%20S ARS-COV-2%20HEALTH CARE%20PROVIDERS%2 0FACT%20SHEET.pdf Fact Sheet for Healthcare Patients: https://www.Lenskart.com/Documents/Xp ert%20Xpress%20SAR S%20CoV-2/Fact%20S heets/302-3801%20S ARS-COV-2%20PATIEN T%20FACT%20SHEET.p df Lab Interpretation Normal (test code = 47303-0) [facility]2022-01-14 15:42:35 Test Item Value Reference Interpretation Comments Range SARS-COV2/RT-PCR Negative Negative The SARS-Co V-2 (test code = target nucleic 35535-9) acids are not detected in thi s [...] revoked sooner. Fact Sheet for Healthcare Providers: https://www.Lenskart.com/Documents/Xp ert%20Xpress%20SAR S%20CoV-2/Fact%20S heets/302-3802%20S ARS-COV-2%20HEALTH CARE%20PROVIDERS%2 0FACT%20SHEET.pdf Fact Sheet for Healthcare Patients: https://www.Lenskart.com/Documents/Xp ert%20Xpress%20SAR S%20CoV-2/Fact%20S heets/302-3801%20S ARS-COV-2%20PATIEN T%20FACT%20SHEET.p df Lab Interpretation Normal (test code = 24302-2) [facility])2022-01-14 15:42:35 Test Item Value Reference Range Interpretation Comments SARS-COV2/RT-PCR Negative Negative The SARS-Co V-2 target (test code = nucleic acids a re not 7782122) detected in thi s specimen. Negative result [...] revoked sooner. Fact Sheet for Healthcare Providers: https://www.[employer] m/Documents/Xpert%20Xpress%20SARS%20CoV-2/Fact%20Sheets/3023802%86NFBC-QNF-8%20 HEALTHCARE%20PROVIDERS%20FACT%20SHEET.pdf Fact Sheet for Healthcare Patients: https://www.MeetMoi/Documents/Xpert%20Xp ress%20SARS%20CoV-2/Fact%20Sheets/302-3801%10OROT-RVA-7%20PATIENT%20FACT%20SHEET .pdfRAD, CHEST, 1 VIEW, NON [id number] 15:02:00Reason for exam:- >SOBShould this be performed at the bedside?->Yes [facility] : 1950 Sex: FFINAL REPORT Chest [...] MDReport Verified Date/Time: 01/14/2022 15:02:16 Reading Location: [facility] Radiology Reading Room POCT-GLUCOSE [id number] 12:14:41 Test Item Value Reference Range Interpretation Comments POC-GLUCOSE METER 134 mg/dL 70-110 H : TESTED A T [facility] 1317 (BEAKER) (test code [address], = 1538) [facility] [address]: Breakfast Host/Techni faviola ID = [id number] for Ej vergara, Aileen ANG, CENTRAL VENOUS CATH PLCMT (JUG/FEM) > 5 Y.O. WITH [id number] 11:25:00Reason for exam:->Non tunneled central line placement [facility] CENTERName: LATRICIA LUBIN : 1950 Sex: FFINAL [...] MDReport Verified Date/Time: 01/14/2022 11:25:42 Reading Location: [facility] Radiology Reading Room POCT-GLUCOSE [id number] 08:34:59 Test Item Value Reference Range Interpretation Comments POC-GLUCOSE METER 147 mg/dL 70-110 H : TESTED A T [facility] 1317 (BEAKER) (test code [address], = 1538) [facility] [address]: Breakfast Host/Techni faviola ID = [id number] for Aileen Loja BASIC METABOLIC [id number] 06:37:03 Test Item Value Reference Range Interpretation [...] not appl icable for dialysis patien ts Breakfast Host ID - LITOOperator ID - LITOOperator ID [...] 0-0 (BEAKER) (test code = 413) POCT-GLUCOSE [id number] 19:50:36 Test Item Value Reference Range Interpretation Comments POC-GLUCOSE METER 199 mg/dL 70-110 H : TESTED A T [facility] [address] (BEAKER) (test code [address], = 1538) [place] [address]: Breakfast Host/Techni faviola ID = [id number] for Ina Agrawal POCT-GLUCOSE [id number] 16:52:12 Test Item Value Reference Range Interpretation Comments POC-GLUCOSE METER 150 mg/dL 70-110 H : TESTED A T [facility] [address] (BEAKER) (test code [address], = 1538) [place] [address]: Breakfast Host/Techni faviola ID = [id number] for Aileen Loja POCT-GLUCOSE [id number] 14:05:10 Test Item Value Reference Range Interpretation Comments POC-GLUCOSE METER 122 mg/dL 70-110 H : TESTED A T [facility] [address] (BEAKER) [facility] = 1538[facility] [place] [address]: Breakfast Host/Techni faviola ID = [id number] for Nancy Douglass Blood gas, [id number] 09:06:33 Test Item Value Reference Range Interpretation Comments pH, Arterial (test code 7.45 7.35-7.45 = 2744-1) pCO2, Arterial (test 40 See_Comment [Autom ated message] code = 2019-) The system [facility] generated this result transmit kenneth reference range : 35 - 45 mm Hg. The reference range was not used to interpret this result as normal/abnormal . pO2, Arterial (test 79 See_Comment L [Automa kenneth message] code = 2703-7) The system [facility] generated this result transmit kenneth [...] 21 Lab Interpretation Abnormal (test code = 72137-2) [facility], [id number] 09:06:33 Test Item Value Reference Range Interpretation Comments pH, Arterial (test code 7.45 7.35-7.45 = 2744-1) pCO2, Arterial (test 40 See_Comment [Autom ated message] code = 2019-) The system [facility] generated this result transmit kenneth reference range : 35 - 45 mm Hg. The reference range was not used to interpret this result as normal/abnormal . pO2, Arterial (test 79 See_Comment L [Automa kenneth message] code = 2703-7) The system [employer] generated this result transmit kenneth reference range [...] 21 Lab Interpretation Abnormal (test code = 84626-4) [facility], [id number] 09:06:33 Test Item Value Reference Range Interpretation Comments pH, Arterial (test code 7.45 7.35-7.45 = 2744-1) pCO2, Arterial (test 40 See_Comment [Autom ated message] code = 2019-) The system [employer] generated this result transmit kenneth reference range : 35 - 45 mm Hg. The reference range was not used to interpret this result as normal/abnormal . pO2, Arterial (test 79 See_Comment L [Automa kenneth message] code = 2703-7) The system [employer] generated this result transmit kenneth reference range [...] 21 Lab Interpretation Abnormal (test code = 16229-4) [facility] gas, [id number] 09:06:33 Test Item Value Reference Range Interpretation Comments pH, Arterial (test code 7.45 7.35-7.45 = 2744-1) pCO2, Arterial (test 40 See_Comment [Autom ated message] code = 2019-) The system [employer] generated this result transmit kenneth reference range : 35 - 45 mm Hg. The reference range was not used to interpret this result as normal/abnormal . pO2, Arterial (test 79 See_Comment L [Automa kenneth message] code = 2703-7) The system [employer] generated this result transmit kenneth reference range [...] 21 Lab Interpretation Abnormal (test code = 31746-0) [facility], [id number] 09:06:33 Test Item Value Reference Range Interpretation Comments pH, Arterial (test code 7.45 7.35-7.45 = 2744-1) pCO2, Arterial (test 40 See_Comment [Autom ated message] code = 2019-) The system [employer] generated this result transmit kenneth reference range : 35 - 45 mm Hg. The reference range was not used to interpret this result as normal/abnormal . pO2, Arterial (test 79 See_Comment L [Automa kenneth message] code = 2703-7) The system [employer] generated this result transmit kenneth reference range [...] 21 Lab Interpretation Abnormal (test code = 44449-0) [facility] gas, [id number] 09:06:33 Test Item Value Reference Range Interpretation Comments pH, Arterial (test code 7.45 7.35-7.45 = 2744-1) pCO2, Arterial (test 40 See_Comment [Autom ated message] code = 2019-) The system [employer] generated this result transmit kenneth reference range : 35 - 45 mm Hg. The reference range was not used to interpret this result as normal/abnormal . pO2, Arterial (test 79 See_Comment L [Automa kenneth message] code = 2703-7) The system [employer] generated this result transmit kenneth reference range [...] 21 Lab Interpretation Abnormal (test code = 90114-1) [facility] [place], [id number] 09:06:33 Test Item Value Reference Range Interpretation Comments pH, Arterial (test code 7.45 7.35-7.45 = 2744-1) pCO2, Arterial (test 40 See_Comment [Autom ated message] code = 2019-8) The system [employer] generated this result transmit kenneth reference range : 35 - 45 mm Hg. The reference range was not used to interpret this result as normal/abnormal . pO2, Arterial (test 79 See_Comment L [Automa kenneth message] code = 2703-7) The system [employer] generated this result transmit kenneth reference range [...] 21 Lab Interpretation Abnormal (test code = 12050-6) [facility] [id number] 09:06:33 Test Item Value Reference Range Interpretation [...] (BEAKER) (test code = 1819) 21.0 POCT-GLUCOSE [id number] 08:36:44 Test Item Value Reference Range Interpretation Comments POC-GLUCOSE METER 132 mg/dL 70-110 H : TESTED A T [address] [address] (BEAKER) (test code [address], = 1538) [facility] [place] [address]: Breakfast Host/Techni faviola ID = [id number] for Aileen Loja TSH/FREE T4 IF [id number] 08:14:31 Test Item Value Reference Range Interpretation Comments THYROID STIMULATING HORMONE 1.790 uIU/mL 0.350-5.500 (BEAKER) (test code = 772) Breakfast Host ID - DSENSONCOMPREHENSIVE METABOLIC [id number] 08:04:08 Test Item Value Reference Range Interpretation [...] 353) ALT (SGPT) < U/L 5-50 L (TONEY) (test code = 347) EGFR (TONYE) 13 Interpretatio n of eGFR (test code [...] not appl icable for dialysis patien ts Breakfast Host ID - DSENSONOperator ID - DSENSONOperator ID - DSENSONOperator ID - DSENSONOperator ID - DSENSONOperator ID - DSENSONOperator ID - DSENSONOperator ID - DSENSONOperator ID - DSENSONOperator ID - DSENSONOperator ID - DSENSONOperator ID - DSENSONOperator ID - DSENSONOperator ID - DSENSONOperatorID - DSENSONOperator ID - DSENSONOperator ID - DSENSONOperator ID - DSENSONOperator ID - DSENSONTROPONIN [id number] 08:03:10 Test Item Value Reference Range Interpretation [...] failure, acidosis, acute neurological disease, and persistent tachyarrhythmia.Breakfast Host ID - DSENSONCT, BRAIN, WITHOUT [id number] 07:49:00 [facility] : 1950 Sex: FFINAL [...] recommended for further characterization. Signed: Suzi Askew MDRepfreeman orth[facility] & sports [facility] Verified Date/Time: 01/13/2022 07:49:20 CBC W/PLT COUNT & AUTO [id number] 07:39:37 Test Item Value Reference Range Interpretation [...] PERCENT (BEAKER) (test code = 2801) POCT-GLUCOSE [id number] 07:15:45 Test Item Value Reference Range Interpretation Comments POC-GLUCOSE METER 127 mg/dL 70-110 H : TESTED A T [facility] [address] (BEAKER) (test [facility] [address], = [address]) [facility] 77 478: Breakfast Host/Techni faviola ID = [id number] for Aileen Loja POCT-GLUCOSE [id number] 06:32:48 Test Item Value Reference Range Interpretation Comments POC-GLUCOSE METER 133 mg/dL 70-110 H : TESTED A T [address] (BEAKER) (test code [address], = 1538) [place] [address]: Breakfast Host/Techni faviola ID = [id number] for Mekhi bi, Lib[place] POCT-GLUCOSE [id number] 21:05:05 Test Item Value Reference Range Interpretation Comments POC-GLUCOSE METER 195 mg/dL 70-110 H : TESTED A T [address] (BEAKER) (test code [address], = 1538) [place] [address]: Breakfast Host/Techni faviola ID = [id number] for Mekhi bi, Libia POCT-GLUCOSE [id number] 19:32:35 Test Item Value Reference Range Interpretation Comments POC-GLUCOSE METER 180 mg/dL 70-110 H : TESTED A T [address] (BEAKER) (test code [address], = 1538) [place] [address]: Breakfast Host/Techni faviola ID = [id number] for [place] ins, Odalys POCT-GLUCOSE [id number] 19:30:16 Test Item Value Reference Range Interpretation Comments POC-GLUCOSE METER 50 mg/dL 70-110 L : TESTED A T [address] (BEAKER) (test code = [address], 1538) [place] [address]: Breakfast Host/Techni faviola ID = [id number] for [place] ins, Odalys POCT-GLUCOSE [id number] 18:09:32 Test Item Value Reference Range Interpretation Comments POC-GLUCOSE METER 63 mg/dL 70-110 L : TESTED A T [address] (BEAKER) (test code = [address], 1538) [place] [address]: Breakfast Host/Techni faviola ID = [id number] for Will iams, Robe ANG, TUNNELED CATHETER [id number] 17:04:00Reason for exam:->dialysis catheter with poor flows on dialysis, very positional - please place tunneled dialysis catheter in a new position. [facility] : 1950 Sex: FFINAL REPORT Tunneled dialysis catheter exchange, 01/12/2022. History: Renal failure, poor flow through the existing catheter. Modality: Sonography and fluoroscopy. Sedation: None. Performance Consultant: Mitzy. Vamp Seamer: None. Approach: Internal jugular vein - right. [...] removed and a new 23 cm 15.5 Guyanese Duraflow 2 catheter was advanced through the [...] right atrium. Impression: Successful, uncomplicated exchange of [facility] internal jugular tunneled dialysis catheter using fluoroscopic guidance. Signed: Nick Dockery Verified Date/Time: 01/12/2022 17:04:33 Reading Location: [facility] Mammo Reading Room POCT-GLUCOSE [id number] 12:20:13 Test Item Value Reference Range Interpretation Comments POC-GLUCOSE METER 107 mg/dL 70-110 : TESTED A T [address] (BEAKER) (test code [address], = 1538) [place] [address] 478: Breakfast Host/Techni faviola ID = [id number] for Will iams Robe POCT-GLUCOSE [id number] 09:01:23 Test Item Value Reference Range Interpretation Comments POC-GLUCOSE METER 118 mg/dL 70-110 H : TESTED A T [address] (BEAKER) (test code [address], = 1538) [place] [address] 478: Breakfast Host/Techni faviola ID = [id number] for Will iams, Robe CBC W/PLT COUNT & AUTO [id number] 06:58:41 Test Item Value Reference Range Interpretation [...] code = 1+ few 961) BASIC METABOLIC [id number] 06:30:57 Test Item Value Reference Range Interpretation [...] not appl icable for dialysis patien ts Breakfast Host ID - LITOOperator ID - LITOOperator ID - LITOOperator ID - LITOOperator ID - LITOOperator ID - LITOOperator ID - LITOOperator ID - LITOOperator ID - LITOOperator ID - [id number] 06:19:11 Test Item Value Reference Range Interpretation Comments MAGNESIUM (BEAKER) (test code = 1.9 mg/dL 1.5-3.0 627) Breakfast Host ID - LITOOperator ID - LITOOperator ID - LITOOperator ID - MARTÍN [id number] 06:16:11 Test Item Value Reference Range Interpretation Comments PHOSPHORUS (BEAKER) (test code = 3.4 mg/dL 2.5-4.5 604) Breakfast Host ID - LITOPROTHROMBIN TIME/[id number] 06:03:04 Test Item Value Reference Range Interpretation Comments PROTIME (BEAKER) 12.4 seconds 9.3-12.0 H Final Infor mation (test code = 759) (Auto Outp ut) INR (BEAKER) (test 1.14 See_Comment Final Inf ormation code = 370) (Auto Output) [Automated mess age] The system [employer] generated this result transmitted ref erence range: <=5.90. The reference range was not used to int erpret this result as normal/abnormal . RECOMMENDED COUMADIN/WARFARIN INR THERAPY RANGESSTANDARD DOSE: 2.0 - 3.0 Includes: PROPHYLAXIS for venous thrombosis, systemic embolization; TREATMENT for venous thrombosis and/or pulmonary embolus.HIGH RISK: Target INR is 2.5-3.5 for patients with mechanical heart valves.[id number] 06:03:04 Test Item Value Reference Range Interpretation Comments PARTIAL THROMBOPLASTIN 29.5 seconds 23.0-35.0 Final Information TIME (BEAKER) (test (Auto Ou tput) code = 760) POCT-GLUCOSE [id number] 20:00:47 Test Item Value Reference Range Interpretation Comments POC-GLUCOSE METER 172 mg/dL 70-110 H : TESTED A T [address] (BEAKER) (test code [address], = 1538) [place] [address]: Breakfast Host/Techni faviola ID = [id number] for Will iams, Ina POCT-GLUCOSE [id number] 18:09:30 Test Item Value Reference Range Interpretation Comments POC-GLUCOSE METER 121 mg/dL 70-110 H : TESTED A T [address] (BEAKER) (test code [address], = 1538) [place] [address]: Breakfast Host/Techni faviola ID = [id number] for Will iams, Robe POCT-GLUCOSE [id number] 12:48:21 Test Item Value Reference Range Interpretation Comments POC-GLUCOSE METER 102 mg/dL 70-110 : TESTED A T [address] (BEAKER) (test code [address], = 1538) [place] [address]: Breakfast Host/Techni faviola ID = [id number] for Avelino h, Kerline POCT-GLUCOSE [id number] 08:00:17 Test Item Value Reference Range Interpretation Comments POC-GLUCOSE METER 119 mg/dL 70-110 H : TESTED A T [address] (BEAKER) (test code [address], = 1538) [place] [address]: Breakfast Host/Techni faviola ID = [id number] for Will iams, Robe POCT-GLUCOSE [id number] 21:28:11 Test Item Value Reference Range Interpretation Comments POC-GLUCOSE METER 227 mg/dL 70-110 H : TESTED A T [address] (BEAKER) (test code [address], = 1538) [place] [address]: Breakfast Host/Techni faviola ID = [id number] for Libia Pop POCT-GLUCOSE [id number] 15:35:44 Test Item Value Reference Range Interpretation Comments POC-GLUCOSE METER 168 mg/dL 70-110 H : TESTED A T [facility] 1317 (BEAKER) (test code [address], = 1538) [place] [address]: Breakfast Host/Techni faviola ID = [id number] for Maribel Jimenez, GURMEET CVC/TUNNELED W/O [id number] 11:59:00 [facility] 1950 Sex: FFINAL REPORT PROCEDURE: Tunneled central venous catheter exchange Procedural PersonnelAttending physician(s): Consuelo Ugarte physician(s): NoneResident physician(s): NoneAdvanlawrence [facility] practice provider(s): None Pre-procedure diagnosis: Malfunctioning catheterPost-procedure [...] a permanent image was stored. Catheter size (Guyanese): 15.5Catheter flush: Heparin (100 units/mL) Abbie sureThe [...] MDReport Verified Date/Time: 01/10/2022 11:59:48 Reading Location: [facility] Radiology Reading Room POCT-GLUCOSE [id number] 11:32:33 Test Item Value Reference Range Interpretation Comments POC-GLUCOSE METER 105 mg/dL 70-110 : TESTED A T [facility] 1317 (BEAKER) (test code [address], = 1538) [facility] 77 [address]: Breakfast Host/Techni faviola ID = [id number] for Maribel Jimenez BASIC METABOLIC [id number] 04:51:32 Test Item Value Reference Range Interpretation [...] not appl icable for dialysis patien ts Breakfast Host ID - LITOOperator ID - LITOOperator ID - LITOOperator ID - LITOOperator ID - LITOOperator ID - LITOOperator ID - LITOOperator ID - LITOOperator ID - LITOOperator ID - [id number] 04:50:58 Test Item Value Reference Range Interpretation Comments MAGNESIUM (BEAKER) (test code = 2.0 mg/dL 1.5-3.0 627) Breakfast Host ID - LITOOperator ID - LITOOperator ID - LITOOperator ID - MARTÍN [id number] 04:48:19 Test Item Value Reference Range Interpretation Comments PHOSPHORUS (BEAKER) (test code = 3.9 mg/dL 2.5-4.5 604) Breakfast Host ID - [id number] 04:44:00 Test Item Value Reference Range Interpretation Comments PARTIAL THROMBOPLASTIN 51.7 seconds 23.0-35.0 H Final Information TIME (BEAKER) (test (Auto Ou tput) code = 760) CBC W/PLT COUNT & AUTO [id number] 04:24:30 Test Item Value Reference Range Interpretation [...] PERCENT (BEAKER) (test code = 2801) POCT-GLUCOSE [id number] 21:26:47 Test Item Value Reference Range Interpretation Comments POC-GLUCOSE METER 127 mg/dL 70-110 H : TESTED A T [address] (BEAKER) (test code [address], = 1538) [place] [address]: Breakfast Host/Techni faviola ID = [id number] for Libia Pop [id number] 20:08:11 Test Item Value Reference Range Interpretation Comments PARTIAL THROMBOPLASTIN 41.3 seconds 23.0-35.0 H Final Information TIME ([facility]) (test (Auto Ou tput) code = 760) POCT-GLUCOSE [id number] 17:14:06 Test Item Value Reference Range Interpretation Comments POC-GLUCOSE METER 154 mg/dL 70-110 H : TESTED A T [address] (BEAKER) (test code [address], = 1538) [place] [address]: Breakfast Host/Techni faviola ID = [id number] for Aileen Loja POCT-GLUCOSE [id number] 11:55:38 Test Item Value Reference Range Interpretation Comments POC-GLUCOSE METER 153 mg/dL 70-110 H : TESTED A T [facility] (BEAKER) [facility] = [facility] [place] [address]: Breakfast Host/Techni faviola ID = [id number] for Maribel Jimenez HEPATITIS B SURFACE [id number] 11:29:52 Test Item Value Reference Range Interpretation Comments HEPATITIS B SURFACE ANTIBODY 53.8 mIU/mL <8.0 H (BEAKER) (test code = 647) Breakfast Host ID - [id number] 10:04:36 Test Item Value Reference Range Interpretation Comments PARTIAL THROMBOPLASTIN 36.3 seconds 23.0-35.0 H Final Information TIME (BEAKER) (test (Auto Ou tput) code = 760) POCT-GLUCOSE [id number] 07:31:03 Test Item Value Reference Range Interpretation Comments POC-GLUCOSE METER 111 mg/dL 70-110 H : TESTED A T [address] [address] (BEAKER) (test code [address], = 1538) [facility] 77 [address]: Breakfast Host/Techni faviola ID = [id number] for Anne breen, Maribel [id number] 06:13:46 Test Item Value Reference Range Interpretation Comments MAGNESIUM (BEAKER) (test code = 1.8 mg/dL 1.5-3.0 627) Breakfast Host ID - [id number] ID - ZUCIAJAJV316Cdbioyrn ID - OEHWEVNGU999Iezzjigj ID - [id number] METABOLIC [id number] 06:12:49 Test Item Value Reference Range Interpretation [...] glom erular filtration rate . Estimated GFR i s not applicable for dialysis patients Breakfast Host ID - [id number] ID - [id number] ID - TJKEUVEPJ256Vmcsnyhg ID - TVKTBQHQU078Yqxhcrps ID - TIHYLLDNH518Cxewdibw ID - SWHIKQQRY954Wnmgqogv ID - ZYRKTCHGC705Bandxlca ID - WXRMHIRGP834Jmomtung ID - NBSRIUZYM026Klqfzgyo ID - [id number] 06:10:51 Test Item Value Reference Range Interpretation Comments PHOSPHORUS (BEAKER) (test code = 3.0 mg/dL 2.5-4.5 604) Breakfast Host ID - [id number] W/PLT COUNT & AUTO [id number] 05:49:35 Test Item Value Reference Range Interpretation [...] PERCENT (BEAKER) (test code = 2801) POCT-GLUCOSE [id number] 05:17:03 Test Item Value Reference Range Interpretation Comments POC-GLUCOSE METER 108 mg/dL 70-110 : TESTED A T [address] (BEAKER) (test code [facility] [address], = 1538) [place] [address]: Breakfast Host/Techni faviola ID = [id number] for esperanza Abraham [id number] 01:14:37 Test Item Value Reference Range Interpretation Comments PARTIAL THROMBOPLASTIN 37.5 seconds 23.0-35.0 H Final Information TIME (BEAKER) (test (Auto Ou tput) code = 760) HEPATITIS B SURFACE [id number] 18:36:43 Test Item Value Reference Range Interpretation Comments HEPATITIS B SURFACE ANTIGEN (2) Nonreactive Nonreactive (BEAKER) (test code = 2585) Breakfast Host ID - [id number]-DOEWIVD [id number] 17:00:29 Test Item Value Reference Range Interpretation Comments POC-GLUCOSE METER 131 mg/dL 70-110 H : TESTED A T [address] (BEAKER) (test code [facility] [address], = 1538) [place] [address]: Breakfast Host/Techni faviola ID = [id number] for Migel Holt [id number] 16:38:44 Test Item Value Reference Range Interpretation Comments PARTIAL THROMBOPLASTIN 42.5 seconds 23.0-35.0 H Final Information TIME (BEAKER) (test (Auto Ou tput) code = 760) POCT-GLUCOSE [id number] 12:29:39 Test Item Value Reference Range Interpretation Comments POC-GLUCOSE METER 168 mg/dL 70-110 H : TESTED A T [address] (BEAKER) (test code [address] [facility], = 1538) [facility] 77 [address]: Breakfast Host/Techni faviola ID = [id number] for Migel Holt POCT-GLUCOSE [id number] 08:10:36 Test Item Value Reference Range Interpretation Comments POC-GLUCOSE METER 136 mg/dL 70-110 H : TESTED A T [address] (BEAKER) (test code [address], = 1538) [place] [address] 478: Breakfast Host/Techni faviola ID = [id number] for Migel Holt BASIC METABOLIC [id number] 06:18:43 Test Item Value Reference Range Interpretation [...] not appl icable for dialysis patien ts Breakfast Host ID - LITOOperator ID - LITOOperator ID - LITOOperator ID - LITOOperator ID - LITOOperator ID - LITOOperator ID - LITOOperator ID - LITOOperator ID - LITOOperator ID - [id number] 06:17:29 Test Item Value Reference Range Interpretation Comments MAGNESIUM (BEAKER) (test code = 1.6 mg/dL 1.5-3.0 627) Breakfast Host ID - LITOOperator ID - LITOOperator ID - LITOOperator ID - MARTÍN HEMOGLOBIN [id number] 06:16:10 Test Item Value Reference Range Interpretation Comments HEMOGLOBIN A1C (BEAKER) (test code = 8.5 % 4.3-6.1 H 368) Breakfast Host ID - [id number] 06:14:08 Test Item Value Reference Range Interpretation Comments PHOSPHORUS (BEAKER) (test code = 5.0 mg/dL 2.5-4.5 H 604) Breakfast Host ID - [id number] 05:59:43 Test Item Value Reference Range Interpretation Comments PARTIAL THROMBOPLASTIN 45.4 seconds 23.0-35.0 H Final Information TIME (BEAKER) (test (Auto Ou tput) code = 760) CBC W/PLT COUNT & AUTO [id number] 05:48:29 Test Item Value Reference Range Interpretation [...] H PERCENT (BEAKER) (test code = 2801) [id number] 21:22:07 Test Item Value Reference Range Interpretation Comments PARTIAL THROMBOPLASTIN 26.5 seconds 23.0-35.0 Final Information TIME (BEAKER) (test (Auto Ou tput) code = 760) POCT-GLUCOSE [id number] 21:12:37 Test Item Value Reference Range Interpretation Comments POC-GLUCOSE METER 136 mg/dL 70-110 H : TESTED A T [address] [address] (BEAKER) (test code [address], = 1538) [facility] [address]: Breakfast Host/Techni faviola ID = [id number] for esperanza Abraham POC [id number] 16:00:00 Test Item Value Reference Range Interpretation Comments POC glucose (test code = 158 mg/dL 65-99 H Ope rator Name: [id number]) Bob PerezWalter evice ID: [id number] Lab Interpretation (test Abnormal code = 19423-2) [facility] [id number] 16:00:00 Test Item Value Reference Range Interpretation Comments POC glucose (test code = 158 mg/dL 65-99 H Ope rator Name: [id number]) Bob Grijalva evice ID: [id number] Lab Interpretation (test Abnormal code = 78195-6) [facility] pathology [id number] 15:05:25 Test Item Value Reference Range Interpretation Comments Case number (test code = [id number]) Surgical pathology See link below for report (test code = PDF Lab Report 2255) Result status (test code This is Final Report = [id number]) for [id number] [facility] [id number] 15:05:25 Test Item Value Reference Range Interpretation Comments Case number (test code = [id number]) Surgical pathology See link below for report (test code = PDF Lab Report 2255) Result status (test code This is Final Report = [id number]) [id number] [facility] [id number] 12:23:18 Test Item Value Reference Range Interpretation [...] of 12-AUG-2021 06:02,-No significant change was found- [facility] 12 [id number] 12:23:18 Test Item Value Reference Range Interpretation [...] of 12-AUG-2021 06:02,-No significant change was found- [facility] ED Preliminary Interpretation - Not an [id number] 21:23:51 Test Item Value Reference Range Interpretation Comments VALERIANO (test code = VALERIANO) Marley Cronin NP-C 09/07/2021 9[facility] Preliminary Interpretation - Not an OrderPerformed by: Marley Cronin NP-CAuthorized by: Trinidad Menard MD ECG reviewed by ED Physician in the absence of a metal lather: no Previous ECG: Previous ECG: UnavailableInterpretat ion: Interpretation: abnormal Rate: ECG rate: 80 ECG rate assessment: normal Rhythm: Rhythm: paced Pacing: Type of pacing: VentricularEctopy: Ectopy: none QRS: QRS axis: Normal QRS intervals: NormalConduction: Conduction: normal ST segments: ST segments: Normal Lab Interpretation Abnormal (test code = 34009-8) [facility] ED Preliminary Interpretation - Not an [id number] 21:23:51 Test Item Value Reference Range Interpretation Comments VALERIANO (test code = VALERIANO) Marley Cronin NP-C 09/07/2021 9:29 [facility] Preliminary Interpretation - Not an OrderPerformed by: Marley Cronin NP-CAuthorized by: Trinidad Menard MD ECG reviewed by ED Physician in the absence of a metal lather: no Previous ECG: Previous ECG: UnavailableInterpretat ion: Interpretation: abnormal Rate: ECG rate: 80 ECG rate assessment: normal Rhythm: Rhythm: paced Pacing: Type of pacing: VentricularEctopy: Ectopy: none QRS: QRS axis: Normal QRS intervals: NormalConduction: Conduction: normal ST segments: ST segments: Normal Lab Interpretation Abnormal (test code = 77791-4) [facility] [Presence] in Respiratory specimen by LANG with probe [id number] 13:39:12 Test Item Value Reference Range Interpretation Comments SARS-CoV-2 (COVID-19) RNA Not detected [Presence] in Respiratory specimen by LANG with probe detection (test code = 37288-3) Whether patient is employed in a Unknown healthcare setting (test code = 60660-1) Whether the patient has symptoms Unknown related to condition of interest (test code = 50596-1) Whether the patient was Unknown hospitalized for condition of interest (test code = 23005-6) Whether the patient was admitted Unknown to intensive care unit (ICU) for condition of interest (test code = 83017-1) Whether patient resides in a Unknown congregate care setting (test code = 22374-2) status (test code = Unknown 75611-5) Date and time of symptom onset Unknown (test code = 90894-3) [facility] myocardial [id number] 02:36:07 Test Item Value Reference Range Interpretation Comments Target HR (test code 148.00 bpm = 6863549228) Resting HR (test 83 BPM code = 2685889796) Resting BP (test 178/79 mmHg code = 6286952833) Percent HR (test 54.05 % code = 6776658685) Post Peak HR (test 80 bpm code = 6694945678) Post Peak BP (test 161/77 mmHg code = 4087740572) Radiology Study observation (narrative) (test code = 81783-1) VALERIANO (test code = Study Quality: good. [...] left ventricle ejection fraction is mildly reduced. [facility] stress [id number] 22:06:40 Test Item Value Reference Range Interpretation Comments Resting BP (test code = 3509700628) Protocol Name (test LEXISCAN code = 6707822506) Time in Exercise 00:01:00 Phase (test code = 6565581949) Max Systolic BP (test code = 4259187412) Max Diastolic BP (test code = 2445493583) Max Heart Rate (test code = 2194218820) Max Predicted Heart Rate (test code = 8771578042) Test Indication (test code = 3827560979) Arrhy During Ex (test code = 1573129887) ECG Interp Before EX (test code = 3556834631) ECG Interp During Ex (test code = 2007032034) Ex Summary Comment (test code = 1240358074) Overall HR Response to Exercise (test code = 2274339186) Overall BP Response To Exercise (test code = 4008798924) Reason for Termination (test code = 7624298564) Stress Test Waveform interpreted in Impression (test code report associated with = 4162608461) image study. No interpretation is provided as part of this Stress ECG report.-Electronically Signed By Adam HOLLIDAY, Catrachonv ([id number]), proposal editor Daysi Chapman ([id number]) on 08/02/2021 5:06:37 PM [facility] stress [id number] 22:06:40 Test Item Value Reference Range Interpretation Comments Resting BP (test code = 9326103654) Protocol Name (test LEXISCAN code = 2576046898) Time in Exercise 00:01:00 Phase (test code = 2684637306) Max Systolic BP (test 178 code = 9091439787) Max Diastolic BP 79 (test code = 2820446528) Max Heart Rate (test 81 code = 2854720107) Max Predicted Heart 148 Rate (test code = 8285781376) Test Indication (test code = 0756040275) Arrhy During Ex (test code = 1085783727) ECG Interp Before EX (test code = 9363072204) ECG Interp During Ex (test code = 6330397825) Ex Summary Comment (test code = 6199704299) Overall HR Response to Exercise (test code = 5159158589) Overall BP Response To Exercise (test code = 7787247937) Reason for Termination (test code = 6227549585) Stress Test Waveform interpreted in Impression (test code report associated with = [id number]) image study. No interpretation is provided as part of this Stress ECG report.-Electronically Signed By Adam HOLLIDAY, [facility] ([id number]), proposal editor Daysi Chapman ([id number]) on 08/02/2021 5:06:37 PM [facility], (w Contrast, Strain and 3D if needed)2021-08-01 17:44:46 Test Item Value Reference Range Interpretation Comments AoV Area, Vmax (test 2.41 cm2 code = 6460804109) AoV Area, VTI (test 2.36 cm2 code = 4324979281) AoV Mean PG (test 5.59 mmHg code = 3442289106) AoV Peak PG (test 11.08 mmHg code = 2217018988) AoV Vmax (test code 1.77 m/s = 4993491317) AoV VTI (test code = 0.30 m 0980113068) IVS,d (test code = 1.11 cm 9976527463) LV,d (test code = 5.57 cm 3786156688) LV EF,A2C (test code 44.91 % = 8900902556) LV EF,A4C (test code 42.43 % = 9164772238) LV EF,BP (test code 42.76 % = 2395085228) [place],d A2C (test 7.79 cm code = 7651798470) [place],d A4C (test 7.59 cm code = 2620622534) [place],s A2C (test 7.10 cm code = 7269197445) [place],s A4C (test 6.58 cm code = 5090109771) LV,s (test code = 4.42 cm 7713168502) LV SV,A2C (test code 59.18 % = 0245675423) LV SV,A4C (test code 64.42 % = 8923740657) LV Vol,d A2C (test 131.77 mL code = 9528683505) LV Vol,d A4C (test 151.81 ml code = 5588522592) LV Vol,d BP (test 142.79 ml code = 5051413434) LV Vol,s A2C (test 72.60 mL code = 7895487377) LV Vol,s A4C (test 87.39 ml code = 0867393578) LV Vol,s BP (test 81.72 nl code = 0209120435) LVOT Diam,S (test 2.08 cm code = 9489915594) LVOT Vmax (test code 1.16 m/s = 3340603593) LVOT VTI (test code 0.21 m = 3275611104) LVPWD,d (test code = 1.05 cm 3866256533) TR Vpeak (test code 2.66 mm/s = 0537018953) AR Press Half Time 504.65 ms (test code = 8231869021) TR pk grad (test 27.27 mmHg code = 2498132426) MR Vmax (test code = 6.10 m/s 3968209272) MR peak grad (test 121.70 mmHg code = 1110192240) E wave decelartion 149.68 msec time (test code = 6213390248) MV Peak E Des (test 1.46 m/s code = 1872336672) LVOT stroke volume 0.71 cm3 (test code = 1592136194) AV LVOT peak 5.36 mmHg gradient (test code = 3340552636) LV SYS VOL (test 88.60 ml code = 8623826782) LV THOMPSON VOL (test 151.60 ml code = 0414567849) LA area s A4C (test 35.87 cm2 code = 6197570784) LV SV Teich 2D (test 63.00 ml code = 5130916247) LVOT SI (test code = 38.28 ml/m2 5718103275) AoV Cusp sep (test 1.72 code = 1950296457) AoV Vmn (test code = 1.10 9359335272) IVS s 2D (test code 1.72 = 8777651261) AR slope (test code 2.59 = 0906824891) Ar Vmax (test code = 3.99 8974853003) LA Ao Ratio Mmode 2.07 (test code = 5028759668) LVOT Vmn (test code 0.80 = 7626145573) Pt Size (test code = 162.56 6899515962) Pt Wt (test code = 81.19 7768366675) PV AT (test code = 94.20 msec 8842572904) LVOT mean grad (test 2.88 mmHg code = 9256475011) AR DT (test code = 1541.52 msec 5590168329) AR pk grad (test 58.41 mmHg code = 2495141391) LVPW s PLAX (test 1.41 cm code = 7662385463) MV Decel slope (test 9.79 m/s2 code = 7228828127) LA Vol MOD A4C (test 124.31 ml code = 1027312556) Velocity Ratio 0.66 m/s (V1/V2) (test code = 4689) EF (test code = 41.56 % 6161475401) LVOT area (test code 3.40 cm2 = 4555264200) LVOT VTI (CM) (test 21.00 cm code = 5254914843) RA pressure (test 15.00 mmHg code = 4858563128) LA Vol 4C (test code 124.00 ml = 1427678732) RVSP (test code = 43.38 mmHg 3298832306) LA diam s (test code 5.50 cm = 7379656754) Aortic Root (test 2.63 cm code = 6456901643) NM End Thompson Grad 11.73 (test code = 1008451152) NM End Diat Des 1.71 (test code = 0025750772) AR maxPG (test code 63.74 = 4554236508) D E excurs (test 2.00 code = 0361977950) E f slope (test code 0.08 = 4091940279) E prime lat (test 0.06 code = 6198837097) E keaton sept (test 0.09 code = 1796396274) PV acc T slope (test 6.80 code = 0757607219) CONDE BP EF (test 43.00 % code = 7730512580) LA VOL 2C (test code 138.00 ml = 8958589896) VALERIANO (test code = The left ventricle [...] of aortic valve stenosis.PericardiumNo pericardial effusion seen. [facility] CampusYndtahohSKJO-SjP-9 (COVID-19) RNA [Presence] in Respiratory specimen by LANG with probe [id number] 23:11:03 Test Item Value Reference Range Interpretation Comments SARS-CoV-2 (COVID-19) RNA Not detected [Presence] in Respiratory specimen by LANG with probe detection (test code = 21370-6) Whether patient is employed in a Unknown healthcare setting (test code = 90710-2) Whether the patient has symptoms Unknown related to condition of interest (test code = 83356-6) Whether the patient was Unknown hospitalized for condition of interest (test code = 29435-2) Whether the patient was admitted Unknown to intensive care unit (ICU) for condition of interest (test code = 02037-5) Whether patient resides in a Unknown congregate care setting (test code = 67279-5) status (test code = Unknown 95580-5) Date and time of symptom onset Unknown (test code = 50790-2) [facility]-CoV-2 (COVID-19) RNA [Presence] in Respiratory specimen by LANG with probe [id number] 11:45:59 Test Item Value Reference Range Interpretation Comments SARS-CoV-2 (COVID-19) RNA Not detected Not-Detected [Presence] in Respiratory specimen by LANG with probe detection (test code = 17966-8) Whether patient is employed in a healthcare setting (test code = 81875-0) Whether the patient has symptoms related to condition of interest (test code = 27545-1) Patient was hospitalized because of this condition (test code = 72999-8) Whether the patient was admitted to intensive care unit (ICU) for condition of interest (test code = 83704-1) Whether patient resides in a congregate care setting (test code = 73131-4) [facility]-CoV-2 (COVID-19) RNA [Presence] in Respiratory specimen by LANG with probe [id number] 05:28:15 Test Item Value Reference Range Interpretation Comments SARS-CoV-2 (COVID-19) RNA Not detected Not-Detected [Presence] in Respiratory specimen by LANG with probe detection (test code = 80379-4) [facility]-CoV-2 (COVID-19) RNA [Presence] in Respiratory specimen by LANG with probe [id number] 23:52:31 Test Item Value Reference Range Interpretation Comments SARS-CoV-2 (COVID-19) RNA Not detected Not-Detected [Presence] in Respiratory specimen by LANG with probe detection (test code = 75879-0) [facility] Notes Date/Time Note Provider Source 2022-01-09 12:30:04-00:[address] [facility] LATRICIA LUBIN FACILITY: [facility] Billing #: [id number] Room: [address] [place] [address] MR #: [id number] : 1950 DATE OF ADMISSION: 01/07/2022 DATE OF CONSULTATION: 01/09/2022 REQUESTING PHYSICIAN: CONTRACT FORESTER: Natacha Schulz MD SUBJECTIVE: Ms. Latricia Lubin [...] malfunctioning and they are treating with alt ofe. IMPRESSION: Malfunctioning tunneled dialysis cat heter. PLAN: Plan is for tunneled dialysis catheter exc hangnicolle. We will hopefully try to get this done for her al ambrosio. ITM/MODL /[id number]
[2022-11-16 21:40] LABS: Specific Gravity 1.014 (1.005-1.030); Urine Bacteria 20-50 /HPF (<20); Urine Bilirubin NEGATIVE (Negative); Urine Blood 2+ (Negative); Urine Clarity Extremely Turbid (Clear); Urine Color Orange (Yellow); Urine Glucose 1+ (Negative); Urine Protein 3+ (Negative); Urine RBC >50 /HPF (None Seen); Urine Urobilinogen Normal (Normal); Urine WBC Clump Many /HPF (None Seen)
[2022-11-16 21:42] LABS: Absolute Lymphocytes (CBC) 2.3 K/uL (0.7-4.9); Hematocrit 40.1 % (36.0-45.0); Lymphocytes % 28.6 % (15.3-44.8); MCV 84.6 fL (80-100); MPV 7.4 fL (7.6-11.3); RBC Red Blood Cell Count 4.74 M/uL (3.86-4.86)
[2022-11-16] MEDS ORDERED: METOCLOPRAMIDE 10 MG/2mL INJ ONE (21:57)
[2022-11-16] MEDS ORDERED: ONDANSETRON 4 MG/2 ML VIAL ONE (21:58)
[2022-11-16] MEDS ORDERED: NA CHLORIDE 0.9% 1,000 ML ONE (21:58)
[2022-11-16] MEDS ORDERED: ACETAMINOPHEN 650MG/RECT SUPP PR ONE (21:58)
--- NOTE | 2022-11-16 22:18 | RAD REPORT ---
EXAM DESCRIPTION: RAD - Chest Single View - 11/16/2022 10:10 pm CLINICAL HISTORY: CHEST PAIN Chest pain. COMPARISON: Chest Single View dated 10/06/2022; Chest Single View dated 09/29/2022; Chest Single View dated 09/27/2022; Chest Single View dated 09/18/2022 FINDINGS: Portable technique limits examination quality. Mild pulmonary edema. The heart is moderately enlarged in size. Multi lead pacer/defibrillator device present. IMPRESSION: Mild CHF.
--- NOTE | 2022-11-16 22:35 | RAD REPORT ---
EXAM DESCRIPTION: CT - CTHCSPWOC - 11/16/2022 10:26 pm CLINICAL HISTORY: Trauma, head and neck injury. altered mental status COMPARISON: <Comparisons> TECHNIQUE: Axial 5 mm thick images of the head were obtained. Axial 2 mm thick images of the cervical spine were obtained with sagittal and coronal reconstruction images generated and reviewed. All CT scans are performed using dose optimization technique as appropriate and may include automated exposure control or mA/KV adjustment according to patient size. FINDINGS: CT HEAD WITHOUT CONTRAST: No acute hemorrhage, hydrocephalus or extra-axial collection is identified.Mild generalized brain atr ophy is present with mild periventricular and deep white matter chronic microvascular ischemic change s.No areas of brain edema or midline shift. Bilateral vertebral atherosclerosis. The paranasal sinuses and mastoids are clear.The calvarium is intact. CT CERVICAL SPINE WITHOUT CONTRAST: No fracture or subluxation.Mild midcervical spondylosis.No prevertebral soft tissues swelling is iden tified. Bilateral carotid atherosclerosis. IMPRESSION: No acute intracranial or cervical spine findings.
[2022-11-17 00:01] LABS: Albumin 2.7 g/dL (3.4-5.0); Bilirubin Direct 0.4 mg/dL (0-0.2); Bilirubin Indirect, Calculated 0.7 mg/dL (0.2-0.8); Bilirubin Total 1.1 mg/dL (0.2-1.0); Magnesium 1.9 mg/dL (1.6-2.4); Protein, Total 7.6 g/dL (6.4-8.2)
[2022-11-17 00:02] LABS: Troponin High Sensitivity 81.8 pg/mL (<58.9)
[2022-11-17 00:38] LABS: Protime INR 1.45
[2022-11-17] MEDS ORDERED: NA CHLORIDE 0.9% 50 ML ONE (00:49)
[2022-11-17] MEDS ORDERED: CEFTRIAXONE 1000 MG/VIAL ONE (00:49)
--- NOTE | 2022-11-17 02:05 | P.HP ---
Certification for Inpatient Patient admitted to: Observation With expected LOS: <2 Midnights Patient will require the following post-hospital care: None Practitioner: I am a practitioner with admitting privileges, knowledge of patient current condition, hospital course, and medical plan of care. Services: Services provided to patient in accordance with Admission requirements found in Title 42 Section 412.3 of the Code of Federal Regulations Patient History Date of Service: 11/17/22 Reason for admission: Heat Stroke History of Present Illness: Ms. Cadet is a 72-year-old female with past medical history of ESRD on HD TTS, diabetes mellitus type 2insulin-dependent, CHF, hypertension, hyperlipidemia, chronic DVT on eliquis, non-insulin dependent type 2 diabetes, CAD with pacemaker/defibrillator, and anemia of chronic disease who presented to the emergency department via EMS with altered mental status. EMS found her in her home with the thermostat reading 100 degrees, daughter states the air conditioning has been broken for a few days now. When she arrived, she was obtunded/not able to respond to questions. Her core temp was 105.[address] traumagram negative for acute findings. Labs significant for sodium 132, CO2 19, glucose 391, AST 11, alk phos 122, tbili 1.1, troponin HS 81, urine positive for UTI. After receiving UT tylenol and IV fluids, her core temperature slowly downtrended to 99.3F. She is still lethargic but more responsive at this time. Will admit for further management. Allergies No Known Allergies Allergy (Verified 01/02/22 02:33) Home medications list reviewed: Yes Home Medications: Furosemide [Lasix] 80 mg PO BID* 04/14/20 Isosorbide Mononitrate [Isosorbide Mononitrate ER] 60 mg PO DAILY 04/14/20 Sevelamer Carbonate [Renvela*] 2 tab PO TIDWM 01/02/22 Apixaban [Eliquis *] 2.5 mg PO BID #30 tab 05/08/22 Gabapentin 100 mg PO BID 07/19/22 Midodrine HCl 5 mg PO BID 07/19/22 - Past Medical/Surgical History Diabetic: Yes -: Diabetes mellitus type 2-insulin dependent -: Rheumatoid arthritis -: Hypertension -: Hyperlipidemia -: Chronic congestive heart failure-unknown EF -: ESRD on HD (Dr. Lora) -: CAD -: L ankle fusion -: hysterectomy -: Dialysis catheter placement and removal -: Cholecystectomy -: pacemaker/defibrillator Psychosocial/ Personal History: Patient lives with her - Family History Family History: Reviewed- Non-Contributory - Social History Smoking Status: Never smoker Alcohol use: No CD- Drugs: No Caffeine use: Yes Place of Residence: Home Review of Systems is unable to be obtained Physical Examination - Vital Signs Temperature: 99.3 F Blood Pressure: 125/46 Pulse: 80 Respirations: 22 Pulse Ox (%): 100 - Physical Exam General: Oriented x2, Confused, Other (Lethargic) HEENT: Atraumatic, EOMI, Sclerae nonicteric Neck: Supple, 2+ carotid pulse no bruit Respiratory: Clear to auscultation bilaterally, Normal air movement Cardiovascular: Regular rate/rhythm, Normal S1 S2 Gastrointestinal: Normal bowel sounds, No tenderness Musculoskeletal: No tenderness Integumentary: No rashes Neurological: Normal speech, Normal affect - Studies Laboratory Data (last 24 hrs) 11/16/22 23:00: Sodium 132 L, Potassium 4.0, BUN 37 H, Creatinine 5.38 H, Glucose 391 H, Magnesium 1.9, Total Bilirubin 1.1 H, AST 17, ALT 11 L, Alkaline Phosphatase 122 H 11/16/22 21:30: PT 16.0 H, INR 1.45, APTT 29.3 11/16/22 21:30: WBC 8.10, Hgb 12.6, Hct 40.1, Plt Count 384 Assessment and Plan - Problems (Diagnosis) (1) Heat stroke Current Visit: Yes Status: Acute Qualifiers: Encounter type: initial encounter Qualified Code(s): T67.01XA - Heatstroke and sunstroke, initial encounter (2) Coronary artery disease Current Visit: Yes Status: Chronic Qualifiers: Coronary Disease-Associated Artery/Lesion type: [place] artery Stebbins vs. transplanted heart: [place] heart Associated angina: without angina Qualified Code(s): I25.10 - Atherosclerotic heart disease of [place] coronary artery without angina pectoris (3) UTI (urinary tract infection) Current Visit: Yes Status: Acute Qualifiers: Urinary tract infection type: acute cystitis Hematuria presence: with hematuria Qualified Code(s): N30.01 - Acute cystitis with hematuria (4) Anemia Current Visit: Yes Status: Chronic Qualifiers: Anemia type: due to chronic kidney disease Chronic kidney disease stage: on chronic dialysis Qualified Code(s): N18.6 - End stage renal disease; D63.1 - Anemia in chronic kidney disease; Z99.2 - Dependence on renal dialysis (5) COPD (chronic obstructive pulmonary disease) Current Visit: Yes Status: Chronic Qualifiers: COPD type: unspecified COPD Qualified Code(s): J44.9 - Chronic obstructive pulmonary disease, unspecified (6) Diabetes Current Visit: Yes Status: Chronic Qualifiers: Diabetes mellitus type: type 2 Diabetes mellitus alf insulin use: without local 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 Mentation slowly improving with decline in core temperature. Continue very gentle IV hydration as she is volume depleted. Nephrology consulted. She is due for HD today. Elevation in troponin is very likely demand ischemia. Will trend. Continue rocephin for UTI. transaction advisory services manager consult. daughter states that patient can no longer care for herself. Glucose monitoring and control with sliding scale. Reconcile and continue home medications. Monitor and replete electrolytes per protocol. Eliquis for VTE prophylaxis. Full code. Discharge Plan: Home Plan to discharge in: 24 Hours - Advance Directives Does patient have a Living Will: No Does patient have a Durable POA for Healthcare: No - Code Status/Comfort Care Code Status Assessed: Yes Code Status: Full Code Physician Review: Patient Assessed, Agree with Above Assessment and Plan Critical Care: No Time Spent Managing Pts Care (In Minutes): 50
[2022-11-17] MEDS ORDERED: INSULIN -REGULAR HUMAN 50 UNIT/0.5 ML ML ONE (02:09)
--- NOTE | 2022-11-17 02:34 | ER ---
Nurse's Notes [facility] Name: Latricia Cadet Age: 72 yrs Sex: Female : 1950 Arrival Date: 11/16/2022 Time: 21:18 Bed 19 Private MD: Diagnosis: Heat exhaustion, unspecified;Acute heatstroke, end-stage renal disease on dialysis, elevated troponin, hyperglycemia, diabetes mellitus type 2 with complications. Presentation: 11/16 21:21 Chief complaint: EMS states: called out for AMS. on arrival to pt home pt was sitting as6 in a hot house all day with no AC. thermostat read 100 degrees inside the home. Coronavirus screen: At this time, the client does not indicate any symptoms associated with coronavirus-19. Ebola Screen: No symptoms or risks identified at this time. Risk Assessment: Do you want to hurt yourself or someone else? Unable to obtain. Onset of symptoms was November 16, 2022. 21:21 Acuity: JAKE 2 as6 21:21 Method Of Arrival: EMS: [facility] as6 21:23 Initial Sepsis Screen: Does the patient meet any 2 criteria? No. Patient's initial as6 sepsis screen is negative. Does the patient have a suspected source of infection? No. Patient's initial sepsis screen is negative. Historical: - Allergies: 21:21 No Known Allergies; as6 - PMHx: 21:21 angina pectoris; CHF; COPD; Diabetes - NIDDM; dialysis T, TH, Sat.; heart attack; as6 Hypertension; insomnia; kidney disease; Rheumatoid Arthritis; Sleep Apnea; - PSHx: 21:21 HD Fistula - Right arm; hysterectomy; pacemaker; as6 - Immunization history:: Adult Immunizations unknown. - Social history:: Smoking status: unknown. - Family history:: not pertinent. Screenin/29 03:06 [facility] ED Fall Risk Assessment (Adult) Score/Fall Risk Level 3 or more points = High as6 Risk. Abuse screen: Denies threats or abuse. Denies injuries from another. Nutritional screening: No deficits noted. Tuberculosis screening: No symptoms or risk factors identified. Assessment: 11/16 21:15 General: Appears ill, unkempt, Behavior is agitated. Pain: Unable to use pain scale. as6 Patient is disoriented. Neuro: Level of Consciousness is awake, confused, lethargic. Respiratory: Respiratory effort is even, unlabored. 22:12 General: ice packs applied . as6 11/17 01:22 General: pt more responsive at this time. as6 02:07 General: Eli (daughter and POA) [phone]. as6 Vital Signs: 11/16 21:22 BP 160 / 77; Pulse 80; Resp 17 S; Pulse Ox 99% on R/A; Weight 63.5 kg; as6 21:58 BP 154 / 101; Pulse 80; Resp 16 S; Temp 105.4(Ca); Pulse Ox 98% on R/A; as6 23:14 BP 116 / 49; Pulse 80; Resp 25 S; Temp 102.1(Ca); Pulse Ox 98% on R/A; as6 11/17 00:17 BP 120 / 47; Pulse 80; Resp 13 S; Temp 100.2(Ca); Pulse Ox 98% on R/A; as6 00:57 BP 125 / 46; Pulse 80; Resp 22 S; Temp 99.3(Ca); Pulse Ox 100% on R/A; as6 Huyen Coma Score: 01:42 Eye Response: to voice(3). Motor Response: localizes pain(5). Verbal Response: sp4 inappropriate words(3). Total: 11. ED Course: 11/16 21:20 Patient arrived in ED. sb4 21:20 Clemente Ceja, RN is Primary Nurse. as6 21:20 William Coulter MD is Attending Physician. sp4 21:20 Arm band placed on. as6 21:22 Triage completed. as6 21:32 [place] cath inserted, using sterile technique, 16 Fr., balloon inflated, to gravity jb5 drainage, urine specimen collected. Patient tolerated well. 22:10 Maintain EMS IV. Dressing intact. Good blood return noted. Site clean \T\ dry. Gauge \T\ as 6 site: 20 right wrist . 22:12 Chest Single View XRAY In Process Unspecified. EDMS 22:28 CT Head C Spine In Process Unspecified. EDMS 11/17 02:33 Andi Lang MD is Hospitalizing Provider. sp4 03:06 Placed in gown. Bed in low position. Call light in reach. Side rails up X2. as6 03:07 No provider procedures requiring assistance completed. Patient admitted, IV remains in as6 place. Administered Medications: 11/16 21:57 Drug: NS 0.9% IV 1000 ml Route: IV; Rate: 75 ml/hr; Site: left wrist; as6 11/17 03:28 Follow up: Response: No adverse reaction; IV Status: Infusion continued upon admission; as6 IV Intake: 300ml 11/16 21:57 Drug: Ondansetron IVP 4 mg Route: IVP; Site: left wrist; 11/17 03:28 Follow up: Response: No adverse reaction as11/16 21:57 Drug: metoCLOPramide IVP 10 mg Route: IVP; Site: left wrist; 11/17 03:28 Follow up: Response: No adverse reaction 11/16 21:57 Drug: Acetaminophen FL Suppository 650 mg Route: FL; 11/17 03:28 Follow up: Response: No adverse reaction as6 00:44 Drug: Rocephin - Rocephin (cefTRIAXone) IVPB 1 grams Route: IVPB; Infused Over: 30 as6 mins; Site: left wrist; 03:28 Follow up: Response: No adverse reaction; IV Status: Completed infusion; IV Intake: 93qakt3 02:02 Drug: Insulin Regular Human IVP 4 units {Co-Signature: michael (Haleigh Simms RN).} Route: as6 IVP; Site: left wrist; 03:28 Follow up: Response: No adverse reaction as6 Medication: 03:07 VIS not applicable for this client. as6 Intake: 03:28 IV: 50ml; Total: 50ml. as6 03:28 IV: 300ml; Total: 350ml. as6 Outcome: 02:34 Decision to Hospitalize by Provider. sp4 03:29 Admitted to Med/surg accompanied by nurse, via stretcher, room 201, with chart, Report as6 called to Arnulfo PETE 03:29 Condition: stable 03:29 Instructed on the need for admit. 03:29 Patient left the ED. as6 Signatures: Dispatcher [employer] EDRoula Villar5 Clemente Ceja RN RN as6 Joanna Liang PA-C PA-C sb4 William Coulter MD MD sp4 Haleigh Simms RN ha1
--- NOTE | 2022-11-17 02:34 | EDPHYS ---
Physician Documentation [facility] Name: Latricia Cadet Age: 72 yrs Sex: Female : 1950 Arrival Date: 11/16/2022 Time: 21:18 Bed 19 Private MD: ED Physician William Coulter HPI: 11/16 21:21 This 72 yrs old Female presents to ER via Unassigned with complaints of sp4 Altered mental status . 11/17 01:42 72-year-old female with history of CHF, COPD, angina, diabetes, on dialysis every sp4 Monday. Presents with acute onset of altered mental status secondary to some a exposure to heat, patient was apparently inside the house without air conditioner for the past 24 hours after she developed generalized weakness, altered mental status, nonverbal condition, and diaphoresis. Patient arrived with EMS and nonverbal condition visibly obtunded.. 01:51 At patient's last admission was 09/20/2022 and patient was admitted for chest pain and sp4 management of end-stage renal disease. Patient states has history of coronary artery disease, congestive heart failure, insulin-dependent diabetes, hypertension, obstructive sleep apnea, rheumatoid arthritis. Patient's medications include furosemide twice daily, isosorbide mononitrate 60 mg daily, Savella Mayor or Nora 2 tabs 3 times daily, Eliquis 2.5 mg p.o. twice daily, gabapentin 100 mg p.o. twice daily, midodrine 5 mg p.o. twice daily.. 01:54 On arrival temperature was measured at 105.. sp4 Historical: - Allergies: 11/16 21:21 No Known Allergies; as6 - PMHx: 21:21 angina pectoris; CHF; COPD; Diabetes - NIDDM; dialysis T, TH, Sat.; heart attack; as6 Hypertension; insomnia; kidney disease; Rheumatoid Arthritis; Sleep Apnea; - PSHx: 21:21 HD Fistula - Right arm; hysterectomy; pacemaker; as6 - Immunization history:: Adult Immunizations unknown. - Social history:: Smoking status: unknown. - Family history:: not pertinent. ROS: 11/17 01:42 Constitutional: Negative for fever, chills, and weight loss. sp4 Unable to obtain ROS due to altered mental status. Exam: 01:42 Constitutional: This is a well developed, well nourished patient pale and toxic sp4 appearing, obtunded, nonverbal, and with decreased GCS. Patient is incontinent of bowel and bladder. 01:42 Head/Face: Normocephalic, atraumatic. Eyes: Pupils equal round and reactive to light, extra-ocular motions intact. Lids and lashes normal. Conjunctiva and sclera are not injected. Cornea within normal limits. Periorbital areas with no swelling, redness, or edema. ENT: Nares patent. No nasal discharge, no septal abnormalities noted. Tympanic membranes are normal and external auditory canals are clear. Oropharynx with no redness, swelling, or masses, exudates, or evidence of obstruction, uvula midline. Dry mucous membranes Neck: Trachea midline, no thyromegaly or masses palpated, and no cervical lymphadenopathy. Supple, full range of motion without nuchal rigidity, or vertebral point tenderness. Chest/axilla: Normal chest wall appearance and motion. Nontender with no deformity. No lesions are appreciated. Cardiovascular: Regular rate and rhythm with a normal S1 and S2. No gallops, murmurs, or rubs. Normal PMI, no JVD. No pulse deficits. Respiratory: Lungs have equal breath sounds bilaterally, clear to auscultation and percussion. No rales, rhonchi or wheezes noted. No increased work of breathing, no retractions or nasal flaring. Abdomen/GI: Soft, non-tender, with normal bowel sounds. No distension or tympany. No guarding or rebound. No evidence of tenderness throughout. Back: No spinal tenderness. No costovertebral tenderness. Female : Normal external genitalia. Incontinent of bowel and bladder. Skin: Warm, dry with normal turgor. Normal color with no rashes, no lesions, and no evidence of cellulitis. MS/ Extremity: Pulses equal, no cyanosis. Neurovascular intact. Full, normal range of motion. Neuro: Awake and alert, GCS 11, patient is obtunded and nonverbal at this time patient is moving all extremities grossly no lateralizing deficits. 01:51 ECG was reviewed by the Attending Physician. EKG time 2132, this paced rhythm at a rate sp4 of 80, there is a ventricular paced rhythm Vital Signs: 11/16 21:22 BP 160 / 77; Pulse 80; Resp 17 S; Pulse Ox 99% on R/A; Weight 63.5 kg; as6 21:58 BP 154 / 101; Pulse 80; Resp 16 S; Temp 105.4(Ca); Pulse Ox 98% on R/A; as6 23:14 BP 116 / 49; Pulse 80; Resp 25 S; Temp 102.1(Ca); Pulse Ox 98% on R/A; as6 11/17 00:17 BP 120 / 47; Pulse 80; Resp 13 S; Temp 100.2(Ca); Pulse Ox 98% on R/A; as6 00:57 BP 125 / 46; Pulse 80; Resp 22 S; Temp 99.3(Ca); Pulse Ox 100% on R/A; as6 Huyen Coma Score: 01:42 Eye Response: to voice(3). Motor Response: localizes pain(5). Verbal Response: sp4 inappropriate words(3). Total: 11. MDM: 11/16 21:23 Patient medically screened. sp4 11/17 01:54 Differential Diagnosis altered mental status, sepsis, flu, Heat stroke. Differential sp4 Diagnosis . ED course: Patient arrived with hypothermia, altered mental status, nonverbal was temperature 105 via rectal temp. Patient was given ice packs and cool down and now is responding appropriately with improvement in mental status. Will order CK for further evaluation and also will give insulin 4 units IV for elevated blood sugar. Patient will require observation in the hospital possibly dialysis in the morning secondary to IV fluids given in the ER today. . 02:31 Data reviewed: vital signs, nurses notes, EMS record, old medical records, lab test sp4 result(s), EKG, radiologic studies, CT scan. 02:32 Consideration of Admission/Observation Patient was admitted/placed on observation. sp4 Escalation of care including admission/observation considered. Management of patient was discussed with the following: Hospitalist: Admission team . ED course: CT revealed no acute intracranial abnormality, chest x-ray revealed mild CHF, labs reveal hyperglycemia, findings consistent with end-stage renal disease, mild elevation of troponin of 81. Blood sugar of 391. Patient most likely has acute heatstroke. However mentation has improved after fever control in ER with ice packs and a rectal Tylenol. Patient this time warrants admission for observation and possible dialysis in the morning... 11/16 21:21 Order name: Basic Metabolic Panel; Complete Time: 00:25 [facility] 11/16 21:21 Order name: CBC with Diff; Complete Time: 00: 11/16 21:21 Order name: Hepatic Function; Complete Time: 00:25 11/16 21:21 Order name: Magnesium; Complete Time: 00:25 4 11/16 21:21 Order name: Protime (+inr); Complete Time: 01:53 11/16 21:21 Order name: Ptt, Activated; Complete Time: 01:53 11/16 21:21 Order name: Troponin High Sensitivity; Complete Time: 00:25 [facility] 11/16 21:21 Order name: Urinalysis w/ reflexes; Complete Time: 00: 11/16 21:43 Order name: Urine Culture [facility] 11/17 01:54 Order name: CK; Complete Time: 02:49 11/16 21:21 Order name: CT Head C Spine; Complete Time: 00:25 [facility] 11/16 21:21 Order name: Chest Single View XRAY; Complete Time: 00:25 11/16 21:21 Order name: EKG; Complete Time: 21:22 11/16 21:21 Order name: Cardiac monitoring; Complete Time: 21: 11/16 21:21 Order name: EKG - Nurse/Tech; Complete Time: 21:11/16 21:21 Order name: IV Saline Lock; Complete Time: 21:23 11/16 21:21 Order name: Labs collected and sent; Complete Time: 21: 11/16 21:21 Order name: NPO; Complete Time: 21:23 11/16 21:21 Order name: O2 Per Protocol; Complete Time: 21:23 [facility] 11/16 21:21 Order name: O2 Sat Monitoring; Complete Time: 21:23 [facility] 11/16 21:22 Order name: [place]; Complete Time: 21:34 11/16 21:50 Order name: Misc. Order: recollect green top; Complete Time: 23:07 4 EC:51 Rate is 80 beats/min. Rhythm is regular, Paced. Interpreted by me. sp4 Administered Medications: 11/16 21:57 Drug: NS 0.9% IV 1000 ml Route: IV; Rate: 75 ml/hr; Site: left wrist; 11/17 03:28 Follow up: Response: No adverse reaction; IV Status: Infusion continued upon admission; as6 IV Intake: 300ml 11/16 21:57 Drug: Ondansetron IVP 4 mg Route: IVP; Site: left wrist; 11/17 03:28 Follow up: Response: No adverse reaction 11/16 21:57 Drug: metoCLOPramide IVP 10 mg Route: IVP; Site: left wrist; 11/17 03:28 Follow up: Response: No adverse reaction 11/16 21:57 Drug: Acetaminophen VA Suppository 650 mg Route: VA; 11/17 03:28 Follow up: Response: No adverse reaction 00:44 Drug: Rocephin - Rocephin (cefTRIAXone) IVPB 1 grams Route: IVPB; Infused Over: 30 as6 mins; Site: left wrist; 03:28 Follow up: Response: No adverse reaction; IV Status: Completed infusion; IV Intake: [id number] 02:02 Drug: Insulin Regular Human IVP 4 units {Co-Signature: ha1 (Haleigh Simms RN).} Route: as6 IVP; Site: left wrist; 03:28 Follow up: Response: No adverse reaction as6 Disposition Summary: 11/17/22 02:34 Hospitalization Ordered Hospitalization Status: Observation sp4 Provider: Andi Lang Location: Telemetry/MedSurg (observation) sp4 Condition: Fair sp4 Problem: new sp4 Symptoms: have improved sp4 Bed/Room Type: Standard sp4 Room Assignment: 201(11/17/22 03:00) cg Diagnosis - Heat exhaustion, unspecified sp4 - Acute heatstroke, end-stage renal disease on dialysis, elevated troponin, sp4 hyperglycemia, diabetes mellitus type 2 with complications. Forms: - Medication Reconciliation Form sp4 - SBAR form sp4 Signatures: Dispatcher [employer] Randi Rocha RN RN cg Clemente Ceja RN RN as6 Joanna Liang PA-C PA-C sb4 Potepalov, Sergey, MD MD sp4 Haleigh Simms RN ha1 Corrections: (The following items were deleted from the chart) 03:00 02:34 sp4
[2022-11-17] MEDS ORDERED: ACETAMINOPHEN 650MG/RECT SUPP PR PRN (03:13)
[2022-11-17] MEDS ORDERED: D5 0.9 NS 1,000 ML IV SCH (03:13)
[2022-11-17 04:52] LABS: Absolute Lymphocytes (CBC) 1.5 K/uL (0.7-4.9); Hematocrit 34.1 % (36.0-45.0); Lymphocytes % 18.1 % (15.3-44.8); MCV 85.1 fL (80-100); MPV 7.4 fL (7.6-11.3); RBC Red Blood Cell Count 4.01 M/uL (3.86-4.86)
[2022-11-17 05:14] LABS: ALT/SGPT < 10 U/L (13-56); AST/SGOT 21 U/L (15-37); Albumin 2.3 g/dL (3.4-5.0); Alkaline Phosphatase 101 U/L (45-117); BUN Blood Urea Nitrogen 36 mg/dL (7-18); Bicarbonate 22 mEq/L (21-32); Bilirubin Total 0.5 mg/dL (0.2-1.0); Glomerular Filtration Rate 9 ml/min (=/>90); Magnesium 1.8 mg/dL (1.6-2.4); Phosphorus 4.3 mg/dL (2.5-4.9); Potassium 3.2 mEq/L (3.5-5.1); Protein, Total 6.3 g/dL (6.4-8.2); Sodium Level 137 mEq/L (136-145)
[2022-11-17 05:15] LABS: Glucose Level 533 mg/dL (74-106)
[2022-11-17] MEDS: INSULIN -REGULAR HUMAN 50 UNIT/0.5 ML ML SQ SCH ×3 (05:24→18:00)
[2022-11-17] MEDS: APIXABAN 2.5 MG TABLET PO SCH ×2 (09:00→20:08)
[2022-11-17] MEDS: CEFTRIAXONE 1,000 MG in NA CHLORIDE 0.9% 50 ML IVPB SCH (09:09)
[2022-11-17] MEDS ORDERED: MAGNESIUM SULFATE 1 gm IVPB 1 GM/100 ML BAG IV ONE (11:00)
--- NOTE | 2022-11-17 11:08 | P.CNS ---
Date of Consult: 11/17/22 Reason for Consult: ESRD Requesting Physician: Andi Lang Chief Complaint: Heat Stroke History of Present Illness: Ms. Cadet is a 72-year-old female with past medical history of ESRD on HD TTS, diabetes mellitus type 2insulin-dependent, CHF, hypertension, hyperlipidemia, chronic DVT on eliquis, non-insulin dependent type 2 diabetes, CAD with pacemaker/defibrillator, and anemia of chronic disease who presented to the emergency department via EMS with altered mental status. EMS found her in her home with the thermostat reading 100 degrees, daughter states the air conditioning has been broken for a few days now. When she arrived, she was obtunded/not able to respond to questions. Her core temp was 105.[address] traumagram negative for acute findings. Labs significant for sodium 132, CO2 19, glucose 391, AST 11, alk phos 122, tbili 1.1, troponin HS 81, urine positive for UTI. After receiving VT tylenol and IV fluids, her core temperature slowly downtrended to 99.3F. She is still lethargic but more responsive at this time. Will admit for further management. 21:21 This 72 yrs old Female presents to ER via Unassigned with complaints of sp4 Altered mental status . 11/17 01:42 72-year-old female with history of CHF, COPD, angina, diabetes, on dialysis every sp4 Monday. Presents with acute onset of altered mental status secondary to some a exposure to heat, patient was apparently inside the house without air conditioner for the past 24 hours after she developed generalized weakness, altered mental status, nonverbal condition, and diaphoresis. Patient arrived with EMS and nonverbal condition visibly obtunded.. 01:51 At patient's last admission was 09/20/2022 and patient was admitted for chest pain and sp4 management of end-stage renal disease. Patient states has history of coronary artery disease, congestive heart failure, insulin-dependent diabetes, hypertension, obstructive sleep apnea, rheumatoid arthritis. Patient's medications include furosemide twice daily, isosorbide mononitrate 60 mg daily, Savella Mayor or Nora 2 tabs 3 times daily, Eliquis 2.5 mg p.o. twice daily, gabapentin 100 mg p.o. twice daily, midodrine 5 mg p.o. twice daily.. Allergies No Known Allergies Allergy (Verified 01/02/22 02:33) Home medications list reviewed: Yes Home Medications: Furosemide [Lasix] 80 mg PO BID* 04/14/20 Isosorbide Mononitrate [Isosorbide Mononitrate ER] 60 mg PO DAILY 04/14/20 Sevelamer Carbonate [Renvela*] 2 tab PO TIDWM 01/02/22 Apixaban [Eliquis *] 2.5 mg PO BID #30 tab 05/08/22 Gabapentin 100 mg PO BID 07/19/22 Midodrine HCl 5 mg PO BID 07/19/22 - Past Medical/Surgical History Diabetic: Yes -: Diabetes mellitus type 2-insulin dependent -: Rheumatoid arthritis -: Hypertension -: Hyperlipidemia -: Chronic congestive heart failure-unknown EF -: ESRD on HD (Dr. Lora) -: CAD -: L ankle fusion -: hysterectomy -: Dialysis catheter placement and removal -: Cholecystectomy -: pacemaker/defibrillator Psychosocial/ Personal History: Patient lives with her - Social History Smoking Status: Unknown if ever smoked Alcohol use: No CD- Drugs: No Caffeine use: Yes Place of Residence: Home Review of Systems 10-point ROS is otherwise unremarkable General: Weakness, Malaise Physical Examination Temp Pulse Resp BP Pulse Ox 97 F 78 20 92/47 L 100 11/17/22 08:00 11/17/22 08:00 11/17/22 08:00 11/17/22 08:00 11/17/22 08:00 General: In no apparent distress, Other (Somnolent) HEENT: Atraumatic Neck: Supple Respiratory: Normal air movement Cardiovascular: No edema, Regular rate/rhythm Gastrointestinal: Soft and benign, Non-distended, No ascites Musculoskeletal: No contractures Integumentary: No rashes Laboratory Data (last 24 hrs) 11/16/22 23:00: Sodium 132 L, Potassium 4.0, BUN 37 H, Creatinine 5.38 H, Glucose 391 H, Magnesium 1.9, Total Bilirubin 1.1 H, AST 17, ALT 11 L, Alkaline Phosphatase 122 H 11/16/22 21:30: PT 16.0 H, INR 1.45, APTT 29.3 11/16/22 21:30: WBC 8.10, Hgb 12.6, Hct 40.1, Plt Count 384 Imagings Data: EXAM DESCRIPTION: RAD - Chest Single View - 11/16/2022 10:10 pm CLINICAL HISTORY: CHEST PAIN Chest pain. COMPARISON: Chest Single View dated 10/06/2022; Chest Single View dated 09/29/2022; Chest Single View dated 09/27/2022; Chest Single View dated 09/18/2022 FINDINGS: Portable technique limits examination quality. Mild pulmonary edema. The heart is moderately enlarged in size. Multi lead p acer/defibrillator device present. IMPRESSION: Mild CHF. EXAM DESCRIPTION: CT - CTHCSPWOC - 11/16/2022 10:26 pm CLINICAL HISTORY: Trauma, head and neck injury. altered mental status COMPARISON: <Comparisons> TECHNIQUE: Axial 5 mm thick images of the head were obtained. Axial 2 mm thick images of the cervical spine were obtained with sagittal and coronal reconstruction images generated and reviewed. All CT scans are performed using dose optimization technique as appropriate and may include automated exposure control or mA/KV adjustment according to patient size. FINDINGS: CT HEAD WITHOUT CONTRAST: No acute hemorrhage, hydrocephalus or extra-axial collection is identified.Mild generalized brain atrophy is present with mild periventricular and deep white matter chronic microvascular ischemic changes.No areas of brain edema or midline shift. Bilateral vertebral atherosclerosis. The paranasal sinuses and mastoids are clear.The calvarium is intact. CT CERVICAL SPINE WITHOUT CONTRAST: No fracture or subluxation.Mild midcervical spondylosis.No prevertebral soft tissues swelling is identified. Bilateral carotid atherosclerosis. IMPRESSION: No acute intracranial or cervical spine findings. Conclusions/Impression: ESRD on HD -Hold HD at this time Hyponatemia, resolved Hypokalemia -Replete as ordered HTN with CKD/ CHF complicated by hypotension at this time -Hold antihypertensives -IVF bolus as needed -Midodrine prn Diastolic CHF, chronic -Low sodium diet -Daily weight -HD with UF prn Moderate hypoalbuminemia/ protein calorie malnutrition -Start Nepro -PT as tolerated DM II with CKD -RISS -Consider long acting insulin Anemia in CKD -Retacrit prn CKD MBD -Start Ergo Thank you kindly for the consultation
[2022-11-17] MEDS: DOCUSATE NA 100 MG CAP PO SCH ×2 (11:16→20:08)
[2022-11-17] MEDS: KCL 20 MEQ/100 mL IVPB 20 MEQ/100 ML BAG IV SCH ×2 (11:16→13:44)
[2022-11-17] MEDS: MULTIVITAMINS,THERAPEUT 1 TAB PO SCH (11:21)
[2022-11-17] MEDS ORDERED: NA CHLORIDE 0.9% 500 ML ONE (11:22)
[2022-11-17] MEDS ORDERED: DRISDOL (VITAMIN D=ERGOCALCIFEROL) 50000 UNIT CAP PO SCH (12:00)
[2022-11-17] MEDS ORDERED: D10W 250 ML IV ONE (12:05)
[2022-11-17] MEDS ORDERED: INSULIN GLARGINE 100 UNIT/ML SQ SCH (12:06)
--- NOTE | 2022-11-17 12:35 | EKG ---
Test Date: 2022-11-16 Test Time: 21:32:19 [employer]: RV MEASUREMENT RESULTS: Intervals: Rate: 80 RI: QRSD: 156 QT: 416 QTc: 479 [place]: P: 81 RI: QRS: -76 T: 107 INTERPRETIVE STATEMENTS: Suspect unspecified pacemaker failure Ventricular-paced rhythm Abnormal ECG Compared to ECG 10/06/2022 09:00:39 Atrial-sensed ventricular-paced complex(es) or rhythm no longer present Electronically Signed On 11-17-22 12:34:32 CDT by Lico Wilkins
[2022-11-17] MEDS: NEPRO SHAKE 237 ML CAN PO SCH ×3 (13:48→20:12)
[2022-11-17 21:07] VITALS: O2SAT 98
[2022-11-18] MEDS: INSULIN -REGULAR HUMAN 50 UNIT/0.5 ML ML SQ SCH ×4 (06:00→17:42)
[2022-11-18 06:40] LABS: Absolute Lymphocytes (CBC) 1.4 K/uL (0.7-4.9); Hematocrit 36.6 % (36.0-45.0); Lymphocytes % 17.9 % (15.3-44.8); MCV 84.2 fL (80-100); MPV 7.3 fL (7.6-11.3); RBC Red Blood Cell Count 4.35 M/uL (3.86-4.86)
[2022-11-18 07:21] VITALS: BMI 26.4
[2022-11-18 07:23] LABS: Albumin 2.3 g/dL (3.4-5.0); Bilirubin Total 0.3 mg/dL (0.2-1.0); Phosphorus 5.6 mg/dL (2.5-4.9); Potassium 4.4 mEq/L (3.5-5.1); Prealbumin 13.6 mg/dL (20-40); Protein, Total 6.5 g/dL (6.4-8.2); Thyroid Stimulating Hormone 1.46 uIU/mL (0.358-3.740); Uric Acid 7.5 mg/dL (2.6-6.0)
[2022-11-18 07:24] LABS: Troponin High Sensitivity 70.2 pg/mL (<58.9)
[2022-11-18] MEDS: MULTIVITAMINS,THERAPEUT 1 TAB PO SCH (08:35)
[2022-11-18] MEDS: APIXABAN 2.5 MG TABLET PO SCH (08:35)
[2022-11-18] MEDS: DOCUSATE NA 100 MG CAP PO SCH (08:35)
[2022-11-18] MEDS: CEFTRIAXONE 1,000 MG in NA CHLORIDE 0.9% 50 ML IVPB SCH (08:37)
[2022-11-18] MEDS: NEPRO SHAKE 237 ML CAN PO SCH ×2 (08:38→13:26)
[2022-11-18 16:12] VITALS: BP 115/56; TEMP 97.9
--- NOTE | 2022-11-18 22:12 | P.PN ---
Date of Service: 11/18/22 Vital Signs Temp Pulse Resp BP Pulse Ox 97.9 F 79 16 115/56 L 95 11/18/22 16:00 11/18/22 16:00 11/18/22 16:00 11/18/22 16:00 11/18/22 16:00 Microbiology Results 11/16/22 21:26 Clean Catch Urine Cut Bank Count - Final No growth. 11/16/22 21:26 Clean Catch Urine - Final No growth. Assessment/ Plan: Nephrology No dyspnea No chest pain More awake today No acute events overnight Vitals, medications, blood work and imaging reviewed in the chart. General: In no apparent distress, Other (Somnolent) HEENT: Atraumatic Neck: Supple Respiratory: Normal air movement Cardiovascular: No edema, Regular rate/rhythm Gastrointestinal: Soft and benign, Non-distended, No ascites Musculoskeletal: No contractures Integumentary: No rashes Laboratory Data (last 24 hrs) 11/16/22 23:00: Sodium 132 L, Potassium 4.0, BUN 37 H, Creatinine 5.38 H, Glucose 391 H, Magnesium 1.9, Total Bilirubin 1.1 H, AST 17, ALT 11 L, Alkaline Phosphatase 122 H 11/16/22 21:30: PT 16.0 H, INR 1.45, APTT 29.3 11/16/22 21:30: WBC 8.10, Hgb 12.6, Hct 40.1, Plt Count 384 Imagings Data: EXAM DESCRIPTION: RAD - Chest Single View - 11/16/2022 10:10 pm CLINICAL HISTORY: CHEST PAIN Chest pain. COMPARISON: Chest Single View dated 10/06/2022; Chest Single View dated 09/29/2022; Chest Single View dated 09/27/2022; Chest Single View dated 09/18/2022 FINDINGS: Portable technique limits examination quality. Mild pulmonary edema. The heart is moderately enlarged in size. Multi lead pacer/defibrillator device present. IMPRESSION: Mild CHF. EXAM DESCRIPTION: CT - CTHCSPWOC - 11/16/2022 10:26 pm CLINICAL HISTORY: Trauma, head and neck injury. altered mental status COMPARISON: <Comparisons> TECHNIQUE: Axial 5 mm thick images of the head were obtained. Axial 2 mm thick images of the cervical spine were obtained with sagittal and coronal reconstruction images generated and reviewed. All CT scans are performed using dose optimization technique as appropriate and may include automated exposure control or mA/KV adjustment according to patient size. FINDINGS: CT HEAD WITHOUT CONTRAST: No acute hemorrhage, hydrocephalus or extra-axial collection is identified.Mild generalized brain atrophy is present with mild periventricular and deep white matter chronic microvascular ischemic changes.No areas of brain edema or midline shift. Bilateral vertebral atherosclerosis. The paranasal sinuses and mastoids are clear.The calvarium is intact. CT CERVICAL SPINE WITHOUT CONTRAST: No fracture or subluxation.Mild midcervical spondylosis.No prevertebral soft tissues swelling is identified. Bilateral carotid atherosclerosis. IMPRESSION: No acute intracranial or cervical spine findings. Conclusions/Impression: ESRD on HD -Hold HD at this time Hyponatemia, resolved Hypokalemia -Replete as ordered HTN with CKD/ CHF complicated by hypotension at this time -Hold antihypertensives -IVF bolus as needed -Midodrine prn Diastolic CHF, chronic -Low sodium diet -Daily weight -HD with UF prn Moderate hypoalbuminemia/ protein calorie malnutrition -Continue Nepro -PT as tolerated DM II with CKD -RISS -Consider long acting insulin Anemia in CKD -Retacrit prn CKD MBD -Continue Ergo
== END 2022-11-18 19:27 | disposition home or self-care (01) | DRG 922 ==
LOC: ER 21:18 → ERHOLD 11-17 01:54 → 2ND 11-17 03:12 → OBSVTOIN 11-17 16:06
PROVIDERS: ADMIT Internal Medicine Sleep Medicine; ATTEND Hospitalist
DX: T67.01XA Heatstroke and sunstroke, initial encounter (principal); N18.6 End stage renal disease; N30.01 Acute cystitis with hematuria; G93.49 Other encephalopathy; E87.1 Hypo-osmolality and hyponatremia; I50.32 Chronic diastolic (congestive) heart failure; I13.2 Hypertensive heart and chronic kidney disease with heart failure and with stage 5 chronic kidney disease, or end stage renal disease; E44.0 Moderate protein-calorie malnutrition; L89.152 Pressure ulcer of sacral region, stage 2; E11.22 Type 2 diabetes mellitus with diabetic chronic kidney disease; E11.65 Type 2 diabetes mellitus with hyperglycemia; D63.1 Anemia in chronic kidney disease; E88.09 Other disorders of plasma-protein metabolism, not elsewhere classified; E87.6 Hypokalemia; E78.5 Hyperlipidemia, unspecified; I25.10 Atherosclerotic heart disease of native coronary artery without angina pectoris; Z99.2 Dependence on renal dialysis; Z79.4 Long term (current) use of insulin; Z79.01 Long term (current) use of anticoagulants; Z68.26 Body mass index [BMI] 26.0-26.9, adult; Z90.49 Acquired absence of other specified parts of digestive tract; Z86.718 Personal history of other venous thrombosis and embolism; Z79.899 Other long term (current) drug therapy; Z90.710 Acquired absence of both cervix and uterus; Z95.810 Presence of automatic (implantable) cardiac defibrillator
CPT/HCPCS: 36415; 51702; 70450; 71045; 72125; 80048; 80053; 80076; 81001; 82024; 82533; 82550; 82947; 83735; 84100; 84132; 84134; 84443; 84484; 84550; 85025; 85610; 85730; 87086; 87088; 93005; 96361; 96365; 96366; 96375; 99285; G0378; J0696; J1815; J2405; J2765; J3475; J3480; J7030; J7040; J7042

== ENCOUNTER 2022-11-22 11:14 | Inpatient (IN) | payer OTHER ==
--- OUTSIDE RECORDS SUMMARY | 2022-11-22 11:25 | XMS REPORT | Continuity of Care Document ---
:1950 Author Organization [facility] t Address [address] [facility] [address] [place] [address] Care Team Providers Name Role Phone Pcp, Patient Does Not Have A Primary Care Physician [phone] Attending Clinician Unavailable Greg Fuentes Attending Clinician Unavailable Anirudh Philippe Rahil Attending Clinician Unavailable Doctor Unassigned, [place] Attending Clinician Unavailable Luc Alvarez Attending Clinician Alannah Renner MD Attending Clinician Annalee Bey MD Attending Clinician Mauro Mendoza MD Attending Clinician ANNALEE BEY Attending Clinician Unavailable ALANNAH RENNER Attending Clinician Unavailable Derian HOLLIDAY, Trinidad Reza Attending Clinician Corrine Osuna MD Attending Clinician Edwin Kaur MD Attending Clinician [phone] oJhn HOLLIDAY, Shanon Vidal Attending Clinician [phone] Tim HOLLIDAY, Tammy Thompson Attending Clinician Armen [...] Clinician Unavailable SARAI SANDRA Attending Clinician Unavailable [id number] Admitting Clinician Unavailable Radha Cabrera Admitting Clinician Unavailable Anirudh Philippe Rahil Admitting Clinician Unavailable SHIRLEY PARKS Admitting Clinician Unavailable CORRINE OSUNA Admitting Clinician Unavailable TAMMY DUMONT Admitting Clinician Unavailable Michaela Admitting Clinician Unavailable MD CORRINE OSUNA Admitting Clinician Unavailable SARAI SANDRA Admitting Clinician Unavailable Payers Payer Name Policy Type Policy Number Effective Date Expiration Date S gus [facility] [id number] 2021 (NON-CONTRACTED) 00:00:00 [facility] [id number] 2021 [facility] 00:00:00 FOR[facility]LY [facility] [id number] [facility] - [id number] [facility] (O) Problems Condition Condition Condition Status Onset [...] ethodi rosis of rosis of 08-[facility] [place] Hospita coronary coronary 00 l artery of artery of [place] heart heart without without angina angina pectoris [...] (chronic 827 ity of kidney kidney 00:00: [place] disease) disease) 00 Medica l stage 4, stage 4, Branch GFR 15-29 GFR 15-29 ml/min ml/min Type 2 Type 2 Disease Active Overview: Univer s diabetes diabetes Formattin ity of mellitus mellitus g of this [place] as with with note Medical diabetic diabetic might be Bran ch nephropath nephropath different y y from the original. follows with Dr. Ngo in [place] Neuropathy Neuropathy Disease Active Overview : Univers Formattin ity of g of this [place] note Medical might be Branch different from the original. in feet and legs Hyperchole Hyperchole Disease Active Overview : Univers steremia steremia Formattin ity of g of this [place] note Medical might be Branch different from the original. follows with Dr. Higuera HTN HTN Disease Active Overview: Univer s (hypertens (hypertens Formattin ity of ion) ion) g of this [place] note Medical might be Branch different from the original. follows with Dr. Higuera Atrial Atrial Disease Active Overview: [facility] s fibrillati fibrillati Formattin ity of on on g of this [place] note Medical might be Branch different from the original. follows with Dr. Higuera Allergies, Adverse Reactions, Alerts Allergy Allergy Status Severity Reaction(s) Onset Inactive Treating Comm ents Source Name Type Date Date Clinician No Known DA Active U [facility] Allergie 1-17 Clear s 00:00: An 00 [facility] Hydrocod Propensi Active GI "not an Metho di one ty to Intolerance 1-12 allergy, st adverse 00:00: but it Hospita reaction 00 upsets my l s to stomach drug every time I take it" No Known DA Active U [facility] Allergie 9-11 Clear s 00:00: An 00 [facility] NO KNOWN Allergy Active [facility] NO KNOWN Drug Active Univers ALLERGIE Class ity of S [place] [facility] Family History Family Member Diagnosis Comments Start Date Stop Date Source Natural sister Breast cancer [facility] Natural sister Cancer [facility] Natural brother Cancer [facility] Natural brother Colon cancer [facility] Natural brother Lung cancer [facility] Maternal grandmother Brain cancer [facility] Maternal grandmother Cancer [facility] Natural mother Cancer [facility] Natural mother Uterine cancer [facility] Social History Social Habit Start Date Stop Date Quantity Comments Source History SDOH Confucianist Alcohol Std Drinks Hospit al Gender identity [facility] Sexual orientation Method [facility] History of Social 2022-07-28 2022-07-[address] function 00:00:00 00:00:00 Hospital Tobacco use and 2022-01-08 2022-01-[address] [facility] kes exposure 00:00:00 00:00:00 tobacco non-user [facility] Center Alcohol intake 2021-09-14 2021-09-14 Current Confucianist 00:00:00 00:00:00 non-drinker of Hospital alcohol (finding) History [facility] 2020-04-05 2020-04-05 1 Confucianist Alcohol Frequency 00:00:00 00:00:00 Hospita l History [facility] 2020-04-05 2020-04-05 1 Confucianist Alcohol Binge 00:00:00 00:00:00 Hospital Sex [birth year] At [birth year] Confucianist 00:00:00 00:00:00 Hospital Smoking Status Start Date Stop Date Source Never smoked tobacco [facility] Medications Ordered Filled Start Stop Current Ordering Indication Dosage Frequency Signature Comments Components Source Medication Medication Date Date Medication? Clinician (SIG) Name Name aspirin 81 Yes 81mg QD Take [address] MG chewable 8-30 by mouth Luke s tablet 16:49: daily. [address] apixaban Yes 2.5mg Q.5D Take 2.5 [...] MG 16:49: mouth Medical tablet 03 nightly. [place] aspirin 81 0 Yes 81mg QD Take [address] MG chewable 8-30 by mouth Luke s tablet 16:49: daily. [address] apixaban Yes 2.5mg Q.5D Take 2.[address] (Eliquis) 8-30 mg by [facility] 2.5 mg Tab 16:49: mouth 2 Medi [place] tablet 03 (two) Center times daily. pramipexole 2021-0 Yes 1mg QD Take [address] (MIRAPEX) 1 8-30 by mouth Luke s MG tablet 16:49: nightly. [address] semaglutide 2021-0 Yes .25mg Inject CHI [...] MG 16:49: mouth Medical tablet 03 nightly. [place] aspirin 81 2021-0 Yes 81mg QD Take [address] MG chewable 8-30 by mouth Luke s tablet 16:49: daily. [address] apixaban 2021-0 Yes 2.5mg Q.5D Take 2.[address] (Eliquis) 8-30 mg by [facility] 2.5 mg Tab 16:49: mouth 2 Medi [place] tablet 03 (two) Center times daily. pramipexole 2021-0 Yes 1mg QD Take [address] (MIRAPEX) 1 8-30 by mouth Luke s MG tablet 16:49: nightly. [address] semaglutide 0 Yes .25mg Inject CHI [...] MG 16:49: mouth Medical tablet 03 nightly. [place] aspirin 81 2021-0 Yes 81mg QD Take [address] MG chewable 8-30 by mouth Luke s tablet 16:49: daily. [address] apixaban 0 Yes 2.5mg Q.5D Take 2.[address] (Eliquis) 8-30 mg by [facility] 2.5 mg Tab 16:49: mouth 2 Medi [place] tablet 03 (two) Center times daily. pramipexole 0 Yes 1mg QD Take [address] (MIRAPEX) 1 8-30 by mouth Luke s MG tablet 16:49: nightly. [address] semaglutide 0 Yes .25mg Inject [facility] (Ozempic) 8-30 0.25 mg [facility]ukes 0.25 mg or 16:49: subcutaneo M edical 0.5 mg(2 03 usly every Cente r mg/1.5 mL) 7 days PnIj Every Monday . pantoprazol 0 Yes 40mg QD Take [address] [facility] 8-30 by mouth Lukes (PROTONIX) 16:49: daily. Medic al [address] [place] [address] tablet traZODone 0 Yes 100mg QD Take [address] (DESYREL) 8-30 mg by [facility]ukes 100 MG 16:49: mouth Medical tablet 03 nightly. [place] aspirin 81 0 Yes 81mg QD Take [address] MG chewable 8-30 by mouth Luke s tablet 16:49: daily. [address] apixaban 0 Yes 2.5mg Q.5D Take 2.[address] (Eliquis) 8-30 mg by [facility]ukes 2.5 mg Tab 16:49: mouth 2 Medi [place] tablet 03 (two) Center times daily. pramipexole 2021-0 Yes 1mg QD Take [address] (MIRAPEX) 1 8-30 by mouth Luke s MG tablet 16:49: nightly. [address] semaglutide 0 Yes .25mg Inject CHI [...] by mouth Luke s tablet 16:49: daily. [facility] 03 [place] apixaban 2021-0 Yes 2.5mg Q.5D Take 2.[address] (Eliquis) 8-30 mg by [facility]ukes 2.5 mg Tab 16:49: mouth 2 Medi [place] tablet 03 (two) Center times daily. pramipexole 2021-0 Yes 1mg QD Take [address] (MIRAPEX) 1 8-30 by mouth Luke s MG tablet 16:49: nightly. Medi [place] 03 [place] semaglutide 0 Yes .25mg Inject [facility] [...] MG 16:49: mouth Medical tablet 03 nightly. [place] aspirin 81 2021-0 Yes 81mg QD Take [address] MG chewable 8-30 by mouth Luke s tablet 16:49: daily. [facility] 03 [place] apixaban 2021-0 Yes 2.5mg Q.5D Take 2.5 [...] 03 nightly. Center hydrALAZINE 2021- No 25mg Q.[id number] Take [address] (APRESOLINE -18 01-30 [id number] by mouth 3 [facility] ) 25 MG [...] 00:00 mouth Medical capsule 27 :00 daily. [place] hydrALAZINE 2021- No 25mg Q.[id number] Take [address] (APRESOLINE 01-18-30 [id number] by mouth 3 [facility] ) 25 MG [...] :00 daily. Center hydrALAZINE 2021- No 25mg Q.[id number] Take [address] (APRESOLINE 01-18 [id number] by mouth 3 [facility] ) 25 MG [...] 00:00 subcutaneo Me dical SEMGLEE) 27 :00 [facility] Center 100 unit/mL nightly injection Use [...] nightly. Med ical 10 MG 27 :00 [place] tablet melatonin 2021- No 10mg QD Take [address] 10 mg TbDL 01-1830 by mouth Luke s 11:55: 00:00 nightly. Medical 27 :00 [place] insulin 2021- No 10U Inject [address] aspart 01-18-30 Units Lukes U-100 11:55: 00:00 subcutaneo Medic al (NovoLOG) 27 :00 usly 3 Center 100 unit/mL (three) (3 mL) InPn times daily before meals. calcitrioL 2021- No .25ug QD Take 0.[address] (ROCALTROL) 01-18-30 mcg by [facility]ukes 0.25 MCG 11:55: 00:00 mouth Medical capsule 27 :00 daily. [place] hydrALAZINE 2021- No 25mg Q.[id number] Take [address] (APRESOLINE 01-18 [id number] by mouth 3 [facility] ) 25 MG [...] 11:55: 00:00 nightly. Med ical 27 :00 [place] isosorbide 2021- No 60mg QD Take 60 [...] :00 daily. Center hydrALAZINE 2021- No 25mg Q.[id number] Take [address] (APRESOLINE 01-18- [id number] by mouth 3 [facility] ) 25 MG [...] :00 daily. Center hydrALAZINE 2021- No 25mg Q.[id number] Take [address] (APRESOLINE 01-18 [id number] by mouth 3 [facility] ) 25 MG [...] 00:00 subcutaneo Me dical SEMGLEE) 27 :00 [facility] Center 100 unit/mL nightly injection Use [...] :00 daily. Center hydrALAZINE 2021- No 25mg Q.[id number] Take [address] (APRESOLINE 01-18 [id number] by mouth 3 [facility] ) 25 MG [...] for 14 doses. vancomycin 2021- No 125mg Q.[id number] Take 1 [facility]i (Vancocin) 09-24 05-[id number] 125 MG 00:00: 04:59 3D (125 mg Hospita capsule 00 :00 total) by l mouth 3 (three) times a day for 8 doses. vancomycin 2021- No 125mg Q.[id number] Take 1 [facility] (Vancocin) 09-24 05-[id number] 125 MG 00:00: 04:59 3D (125 mg Hospita capsule 00 :00 total) by l mouth 3 (three) times a day for 8 doses. vancomycin 2021- No 125mg Q.[id number] Take 1 [facility] (Vancocin) 09-24 05-[id number] 125 MG 00:00: 04:59 3D (125 mg Hospita capsule 00 :00 total) by l mouth 3 (three) times a day for 8 doses. vancomycin 2021- No 125mg Q.[id number] Take 1 [facility] (Vancocin) 09-24 05-[id number] 125 MG 00:00: 04:59 3D [...] 100mg Q.5D Take 100 M ethodi tartrate - 04-[address] (LOPRESSOR) 18:55: 00:00 [...] mouth Hospita capsule 51 daily. l pramipexole 2022-0 Yes 1mg QD Take [...] mouth Hospita capsule 51 daily. l pramipexole 2022-0 Yes 1mg QD Take [...] mouth Hospita capsule 51 daily. l pramipexole 2022-0 Yes 1mg QD Take [...] mouth Hospita capsule 51 daily. l hydrALAZINE 2021-0 2021- No 25mg Q.[id number] Take 1 [facility] (APRESOLINE -28 -29 [id number] tablet (25 st ) 25 MG 00:00: 04:59 3D mg total) [facility] tablet 00 :00 by mouth l every 8 (eight) hours for 30 days. aspirin 81 2-0 2022- No 81mg QD Chew 1 Meth [...] for 30 days. hydrALAZINE 2021-2021- No 25mg Q.[id number] Take 1 [facility] (APRESOLINE 09-16- [id number] tablet (25 st ) 25 MG 00:00: [...] for 30 days. hydrALAZINE 2021-2021- No 25mg Q.[id number] Take 1 [facility] (APRESOLINE 09-16-29 [id number] tablet (25 st ) 25 MG 00:00: 04:59 3D mg total) [facility] tablet 00 :00 by mouth l every 8 (eight) hours for 30 days. aspirin 81 2021-0 2021- No 81mg QD Chew 1 Meth ramiro mg chewable 4-16 10-29 tablet (81 s t tablet 00:00: [...] for 30 days. hydrALAZINE 2021- No 25mg Q.[id number] Take 1 [facility] (APRESOLINE -16 10-29 [id number] tablet (25 st ) 25 MG 00:00: [...] for 30 days. hydrALAZINE 2021- No 25mg Q.[id number] Take 1 [facility] (APRESOLINE 4- 05-29 [id number] tablet (25 st ) 25 MG 00:00: [...] for 30 days. hydrALAZINE 2021-2021- No 25mg Q.[id number] Take 1 [facility] (APRESOLINE 09-16- [id number] tablet (25 st ) 25 MG 00:00: [...] Take 1 mg M ethodi (REQUIP) 1 08-14- by mouth st MG tablet 19:46: 00:00 [...] 100mg Q.5D Take 100 M ethodi tartrate 08-13-[address] (LOPRESSOR) 19:46: 00:00 mouth 2 Ho spita 100 mg 31 :00 (two) l tablet times a day. hydrALAZINE 2021- No 100mg Q.[id number] Take 100 [facility] (APRESOLINE 08-13-[id number] by [address] ) 100 MG 19:46: [...] times a day. hydrALAZINE 2021-2021- No 100mg Q.[id number] Take 100 [facility] (APRESOLINE 3-25 03-[id number] ) 100 MG 19:46: 00:00 3D mouth 3 Hospi ta tablet 31 :00 (three) l times a day. apixaban 2021-2021- No 2.5mg Q.5D Take 2.5 Met hodi (ELIQUIS) 3-25 03-[address] 2.5 mg 19:46: 00:00 mouth 2 Hospita tablet 31 :00 (two) l times a day. potassium 2021-0 2021- No 10meq Q.5D Take 10 Met [...] 2021-2021- No 12U QD Inject Methodi GLARGINE 3-13 09-[address] (LANTUS) 00:00: 00:00 [...] for 30 days. hydrALAZINE 2021-2021- No 50mg Q.[id number] Take 1 [facility] (APRESOLINE 3-25 -28 [id number] tablet (50 st ) 50 MG 00:00: [...] 30 days. hydrALAZINE 2021-0 2021- No 50mg Q.[id number] Take 1 [facility] (APRESOLINE 3-25 09-16 [id number] tablet (50 st ) 50 MG 00:00: [...] morning for 30 days. levalbutero 2021- No [id number] 1.25mg Q8H Take 3 mL Methodi l [...] for 30 days. insulin 2021- No 5U Q.[id number] Inject M ethodi LISPRO 06-04 [id number] 0.05 mL (5 st (ADMELOG) 00:00: 05:59 [...] to 30 days. budesonide 2020-05 Yes 3mg Q.[id number] Take 3 mg [facility] EC 2-12 [id number] mouth 3 st (ENTOCORT 00:00: 3D (three) Hospi ta EC) 3 mg 24 00 times a l hr capsule day. budesonide 2020-05 Yes 3mg Q.[id number] Take 3 mg [facility]i EC 2-12 [id number] by mouth 3 st (ENTOCORT 00:00: 3D (three) Hospi ta EC) 3 mg 24 00 times a l hr capsule day. budesonide 2020-05 Yes 3mg Q.[id number] Take 3 mg [facility]i EC 2-12 [id number] by mouth 3 st (ENTOCORT 00:00: 3D (three) Hospi ta EC) 3 mg 24 00 times a l hr capsule day. budesonide 2020-05 Yes 3mg Q.[id number] Take 3 mg Methodi EC 2-12 [id number] by mouth 3 st (ENTOCORT 00:00: 3D (three) Hospi ta EC) 3 mg 24 00 times a l hr capsule day. budesonide 2020-05 Yes 3mg Q.[id number] Take 3 mg Methodi EC 2-12 [id number] by mouth 3 st (ENTOCORT 00:00: 3D (three) Hospi ta EC) 3 mg 24 00 times a l hr capsule day. budesonide 2020-05 Yes 3mg Q.[id number] Take 3 mg Methodi EC 2-12 [id number] by mouth 3 st (ENTOCORT 00:00: 3D (three) Hospi ta EC) 3 mg 24 00 times a l hr capsule day. budesonide 2020-05 Yes 3mg Q.[id number] Take 3 mg Methodi EC 2-12 [id number] by mouth 3 st (ENTOCORT 00:00: 3D (three) Hospi ta EC) 3 mg 24 00 times a l hr capsule day. budesonide 2020-05 Yes 3mg Q.[id number] Take 3 mg Methodi EC 2-12 [id number] by mouth 3 st (ENTOCORT 00:00: 3D [...] Under breast and between legs allopurinol Yes [id number] 150mg Take 150 Univers (ZYLOPRIM) 1-04 mg by ity of 100 mg 15:21: mouth [place] tablet 32 daily. Medical Branch CALCIUM Yes .25mg Take 0.25 Univ ers CARBONATE/V 1-04 mg by ity of ITAMIN D3 15:21: mouth [place] (VITAMIN 32 daily. Medical D-3 ORAL) Branch allopurinol Yes [id number] 150mg Take 150 Univers (ZYLOPRIM) 1-04 mg by ity of 100 mg 15:21: mouth [place] tablet 32 daily. Medical Branch CALCIUM Yes .25mg Take 0.25 Univ ers CARBONATE/V 1-04 mg by ity of ITAMIN D3 15:21: mouth [place] (VITAMIN 32 daily. Medical D-3 ORAL) Branch allopurinol Yes [id number] 150mg Take 150 Univers (ZYLOPRIM) 1-04 mg by ity of 100 mg 15:21: mouth [place] tablet 32 daily. Medical Branch CALCIUM Yes .25mg Take 0.25 Univ ers CARBONATE/V 1-04 mg by ity of ITAMIN D3 15:21: mouth [place] (VITAMIN 32 daily. Medical D-3 ORAL) Branch allopurinol Yes [id number] 150mg Take 150 Univers (ZYLOPRIM) 1-04 mg by ity of 100 mg 15:21: mouth [place] tablet 32 daily. Medical Branch CALCIUM Yes .25mg Take 0.25 Univ ers CARBONATE/V 1-04 mg by ity of ITAMIN D3 15:21: mouth [place] (VITAMIN 32 daily. Medical D-3 ORAL) Branch allopurinol Yes [id number] 150mg Take 150 Univers (ZYLOPRIM) 1-04 mg by ity of 100 mg 15:21: mouth [place] tablet 32 daily. Medical Branch CALCIUM Yes .25mg Take 0.25 Univ ers CARBONATE/V 1-04 mg by ity of ITAMIN D3 15:21: mouth [place] (VITAMIN 32 daily. Medical D-3 ORAL) Branch allopurinol Yes [id number] 150mg Take 150 Univers (ZYLOPRIM) 1-04 mg by ity of 100 mg 15:21: mouth [place] tablet 32 daily. Medical Branch allopurinol Yes [id number] 150mg Take 150 Univers (ZYLOPRIM) 1-04 mg by ity of 100 mg 15:21: mouth [place] tablet 32 daily. Medical Branch CALCIUM Yes .25mg Take 0.25 Univ ers CARBONATE/V 1-04 mg by ity of ITAMIN D3 15:21: mouth [place] (VITAMIN 32 daily. Medical D-3 ORAL) Branch allopurinol Yes [id number] 150mg Take 150 Univers (ZYLOPRIM) 1-04 mg [...] daily. Medical D-3 ORAL) Branch allopurinol Yes [id number] 150mg Take 150 Univers (ZYLOPRIM) 1-04 mg by ity of 100 mg 15:21: mouth [place] tablet 32 daily. Medical Branch CALCIUM Yes .25mg Take 0.25 Univ ers CARBONATE/V 1-04 mg by ity of ITAMIN D3 15:21: mouth [place] (VITAMIN 32 daily. Medical D-3 ORAL) Branch allopurinol Yes [id number] 150mg Take 150 Univers (ZYLOPRIM) 1-04 mg by ity of 100 mg 15:21: mouth [place] tablet 32 daily. Medical Branch CALCIUM Yes .25mg Take 0.25 Univ ers CARBONATE/V 1-04 mg by ity of ITAMIN D3 15:21: mouth [place] (VITAMIN 32 daily. Medical D-3 ORAL) Branch allopurinol Yes [id number] 150mg Take 150 Univers (ZYLOPRIM) 1-04 mg by ity of 100 mg 15:21: mouth [place] tablet 32 daily. Medical Branch CALCIUM Yes .25mg Take 0.25 Univ ers CARBONATE/V 1-04 mg by ity of ITAMIN D3 15:21: mouth [place] (VITAMIN 32 [facility] Yes [id number] 40mg Take 40 mg Univers (LASIX) 20 1-04 by mouth ity o f mg tablet 15:19: daily. [address] furosemide 2016-0 Yes [id number] 40mg Take 40 mg Univers (LASIX) 20 1-04 by mouth ity o f mg tablet 15:19: daily. [address] furosemide 0 Yes [id number] 40mg Take 40 mg Univers (LASIX) 20 1-04 by mouth ity o f mg tablet 15:19: daily. [address] furosemide Yes [id number] 40mg Take 40 mg Univers (LASIX) 20 1-04 by mouth ity o f mg tablet 15:19: daily. [address] furosemide 2016- Yes [id number] 40mg Take 40 mg Univers (LASIX) 20 1-04 by mouth ity o f mg tablet 15:19: daily. [address] furosemide Yes [id number] 40mg Take 40 mg Univers (LASIX) 20 1-04 by mouth ity o f mg tablet 15:19: daily. [address] furosemide Yes [id number] 40mg Take 40 mg Univers (LASIX) 20 1-04 by mouth ity o f mg tablet 15:19: daily. [address] furosemide 0 Yes [id number] 40mg Take 40 mg Univers (LASIX) 20 1-04 by mouth ity o f mg tablet 15:19: daily. [address] furosemide 2016- Yes [id number] 40mg Take 40 mg Univers (LASIX) 20 1-04 by mouth ity o f mg tablet 15:19: daily. [address] furosemide 2016-0 Yes [id number] 40mg Take 40 mg Univers (LASIX) 20 1-04 by mouth ity o f mg tablet 15:19: daily. [address] furosemide 2016-0 Yes [id number] 40mg Take 40 mg Univers (LASIX) 20 1-04 by mouth ity o f mg tablet 15:19: daily. [address] Golimumab 2017-0 Yes [id number] inject U nivers (SIMPONI) 1-04 under the ity o f 50 mg/0.5 15:18: skin. [place] mL 20 Infusion Medical injection every 8 Branch weeks for rheumatoid arthritis. Golimumab 2017- Yes [id number] inject U nivers (SIMPONI) 1-04 under the ity o f 50 mg/0.5 15:18: skin. [place] mL 20 Infusion Medical injection every 8 Branch weeks for rheumatoid arthritis. Golimumab 2017- Yes [id number] inject U nivers (SIMPONI) 1-04 under the ity o f 50 mg/0.5 15:18: skin. [place] mL 20 Infusion Medical injection every 8 Branch weeks for rheumatoid arthritis. Golimumab 2017 Yes [id number] inject U nivers (SIMPONI) 1-04 under the ity o f 50 mg/0.5 15:18: skin. [place] mL 20 Infusion Medical injection every 8 Branch weeks for rheumatoid arthritis. Golimumab Yes [id number] inject U nivers (SIMPONI) 1-04 under the ity o f 50 mg/0.5 15:18: skin. [place] mL 20 Infusion Medical injection every 8 Branch weeks for rheumatoid arthritis. Golimumab 2017 Yes [id number] inject U nivers (SIMPONI) 1-04 under the ity o f 50 mg/0.5 15:18: skin. [place] mL 20 Infusion Medical injection every 8 Branch weeks for rheumatoid arthritis. Golimumab 2017-0 Yes [id number] inject U nivers (SIMPONI) 1-04 under the ity o f 50 mg/0.5 15:18: skin. [place] mL 20 Infusion Medical injection every 8 Branch weeks for rheumatoid arthritis. Golimumab 2017- Yes [id number] inject U nivers (SIMPONI) 1-04 under the ity o f 50 mg/0.5 15:18: skin. [place] mL 20 Infusion Medical injection every 8 Branch weeks for rheumatoid arthritis. Golimumab 2017-0 Yes [id number] inject U nivers (SIMPONI) 1-04 under the ity o f 50 mg/0.5 15:18: skin. [place] mL 20 Infusion Medical injection every 8 Branch weeks for rheumatoid arthritis. Golimumab 2017- Yes [id number] inject U nivers (SIMPONI) 1-04 under the ity o f 50 mg/0.5 15:18: skin. [place] mL 20 Infusion Medical injection every 8 Branch weeks for rheumatoid arthritis. Golimumab 2017- Yes [id number] inject U nivers (SIMPONI) 1-04 under the ity o f 50 mg/0.5 15:18: skin. [place] mL 20 Infusion Medical injection every 8 Branch weeks for rheumatoid arthritis. apixaban 2017-0 Yes 5mg Take 5 mg [...] 24 hr 03 Medical tablet Branch carvedilol 2017 Yes 12.5mg Take 12.5 Univers (COREG) 1-04 mg by ity of 12.5 mg 14:33: mouth 2 [place] tablet 03 (two) Medical times Branch daily with meals. linagliptin 2017- Yes [id number] Take by Univers (TRADJENTA) 1-04 mouth. ity of 5 mg tablet 14:33: [place] 03 Medical Branch apixaban 2016-0 Yes 5mg Take [...] Branch daily with meals. linagliptin 2017-0 Yes [id number] Take by Univers (TRADJENTA) 1-04 mouth. ity [...] 2 [place] tablet 03 (two) Medical times [place] daily with meals. linagliptin 2017-0 Yes [id number] Take by Univers (TRADJENTA) 1-04 mouth. ity of 5 mg tablet 14:33: [place] [facility] apixaban 2017-0 Yes 5mg Take [...] 2 [place] tablet 03 (two) Medical times [place] daily with meals. linagliptin 2017-0 Yes [id number] Take by Univers (TRADJENTA) 1-04 mouth. ity of 5 mg tablet 14:33: [place] [facility] linagliptin 2017-0 Yes [id number] Take by Univers (TRADJENTA) 1-04 mouth. ity of 5 mg tablet 14:33: [place] [facility] apixaban 2017-0 Yes 5mg Take [...] 2 [place] tablet 03 (two) Medical times [place] daily with meals. linagliptin 2017-0 Yes [id number] Take by Univers (TRADZIIBRANTA) 1-04 mouth. ity of 5 mg tablet 14:33: [place] [facility] apixaban 2017-0 Yes 5mg Take [...] 2 [place] tablet 03 (two) Medical times [place] daily with meals. linagliptin 2017-0 Yes [id number] Take by Univers (TRADJENTA) 1-04 mouth. ity [...] 2 [place] tablet 03 (two) Medical times [place] daily with meals. hydralAZINE 2017-0 Yes 50mg Take 50 mg [...] 2 [place] tablet 03 (two) Medical times [place] daily with meals. linagliptin 2017-0 Yes [id number] Take by Univers (TRADJENTA) 1-04 mouth. ity [...] Branch daily with meals. linagliptin 2017-0 Yes [id number] Take by Univers (TRADJENTA) 1-04 mouth. ity [...] 2 [place] tablet 03 (two) Medical times [place] daily with meals. linagliptin 2017-0 Yes [id number] Take by Univers (TRADJENTA) 1-04 mouth. ity [...] times Branch daily with meals. linagliptin Yes [id number] Take by Univers (TRADJENTA) 1-04 mouth. ity of 5 mg tablet 14:33: [place] 03 [facility] Branch pramipexole 2016- Yes [id number] 2mg Take 2 Univers (MIRAPEX) 1 1-04 tablets by it y of mg tablet 00:00: [place] [facility] pramipexole Yes [id number] 2mg Take 2 [facility] (MIRAPEX) 1 1-04 tablets by [facility] y [place] [facility] pramipexole Yes [id number] 2mg Take 2 [facility] (MIRAPEX) 1 1-04 tablets by [facility] [place]. [facility] pramipexole Yes [id number] 2mg Take 2 [facility] (MIRAPEX) 1 1-04 tablets by [facility] [place] bed[place]. [facility] pramipexole Yes [id number] 2mg Take 2 [facility] (MIRAPEX) 1 1-04 tablets by [facility] mg [place]. [facility] pramipexole Yes [id number] 2mg Take 2 [facility] (MIRAPEX) 1 1-04 tablets by [facility] [place]. [facility] pramipexole Yes [id number] 2mg Take 2 [facility] (MIRAPEX) 1 1-04 tablets by [facility] [place] mg [place] bed[place]. [facility] pramipexole Yes [id number] 2mg Take 2 [facility] (MIRAPEX) 1 1-04 tablets by [facility] [place] bed[place]. [facility] pramipexole Yes [id number] 2mg Take 2 [facility] (MIRAPEX) 1 1-04 tablets by [facility] [place] mg [place] bed[place]. [facility] pramipexole Yes [id number] 2mg Take 2 [facility] (MIRAPEX) 1 1-04 tablets by [facility] y [facility] mg tablet [place] bed[place] [facility] pramipexole 2017-0 Yes [id number] 2mg Take 2 [facility] (MIRAPEX) 1 1-04 [...] Medical times Branch daily. glipiZIDE 2015-05 Yes [id number] 10mg Take 1 [place] XL 1-16 tablet by [facility] (GLUCOT[place]OL [place] 10 mg 00 (two) Medical 24 hr times Branch tablet daily. glipiZIDE 2015-05 Yes [id number] 10mg Take 1 [facility] XL 1-16 tablet by [facility]y [facility] (GLUCOTROL [place]: [place] XL[place] 10 mg 00 (two) Medical 24 hr times Branch tablet daily. glipiZIDE 2015-05 Yes [id number] 10mg Take 1 [facility] XL 1-16 tablet by [facility] (GLUCOTROL [place]: [place] XL[place] 10 mg 00 (two) Medical 24 hr times Branch tablet daily. glipiZIDE 2015-05 Yes [id number] 10mg Take 1 [facility] XL 1-16 tablet by [facility] (GLUCOTROL [place]: [place] XL[place] 10 mg 00 (two) Medical 24 hr times Branch tablet daily. glipiZIDE 2015-05 Yes [id number] 10mg Take 1 [facility] [place] XL 1-16 tablet by [facility] (GLUCOTROL [place]: [place] XL[place] 10 mg 00 (two) Medical 24 hr times Branch tablet daily. glipiZIDE 2015-05 Yes [id number] 10mg Take 1 [facility] [place] XL 1-16 tablet by [facility] (GLUCOTROL [place]: [place] XL) 10 mg 00 (two) Medical 24 hr times Branch tablet daily. glipiZIDE 2015-05 Yes [id number] 10mg Take 1 [facility] [place] XL 1-16 tablet by [facility] (GLUCOTROL [place]: [place] XL) 10 mg 00 (two) Medical 24 hr times Branch tablet daily. glipiZIDE 2015-05 Yes [id number] 10mg Take 1 [facility] [place] XL 1-16 tablet by [facility]y of (GLUCOTROL [place]: [place] XL) 10 mg 00 (two) Medical 24 hr times Branch tablet daily. glipiZIDE 2015-05 Yes [id number] 10mg Take 1 [facility] XL 1-16 tablet by [facility]y of (GLUCOTROL [place]: [place] XL) 10 mg 00 (two) Medical 24 hr times Branch tablet daily. glipiZIDE 2015-05 Yes [id number] 10mg Take 1 [facility] [place] XL 1-16 tablet by [facility]y of (GLUCOTROL 00:[place]: [place] XL) 10 mg 00 (two) Medical 24 hr times Branch tablet daily. glipiZIDE 2015-05 Yes [id number] 10mg Take 1 [facility] [place] XL 1-16 tablet by [facility] of (GLUCOTROL 00:00: [place] XL) 10 mg 00 (two) Medical 24 hr times Branch tablet daily. atorvastati 2015-05 Yes [id number] 10mg Take 1 [facility] n (LIPITOR) 1-02 tablet by ity of 10 mg 00:00: [facility] at [place] tablet 00 bedtime. [facility] atorvastati 2015-05 Yes [id number] 10mg Take 1 [facility] n (LIPITOR) 1-02 tablet by ity of 10 mg 00:00: mouth at [place] tablet 00 bedtime. [facility] atorvastati 2015-05 Yes [id number] 10mg Take 1 [facility] n (LIPITOR) 1-02 tablet by ity of 10 mg 00:00: mouth at [place] tablet 00 bedtime. [facility] atorvastati 2015-05 Yes [id number] 10mg Take 1 [facility] n (LIPITOR) 1-02 tablet by ity of 10 mg 00:00: mouth at [place] tablet 00 bedtime. [facility] atorvastati 2015-05 Yes [id number] 10mg Take 1 [facility] n (LIPITOR) 1-02 tablet by ity of 10 mg 00:00: mouth at [place] tablet 00 bedtime. [facility] atorvastati 2015-05 Yes [id number] 10mg Take 1 [facility] n (LIPITOR) 1-02 tablet by ity of 10 mg 00:00: mouth at [place] tablet 00 bedtime. [facility] atorvastati 2015-05 Yes [id number] 10mg Take 1 [facility] n (LIPITOR) 1-02 tablet by ity of 10 mg 00:00: mouth at [place] tablet 00 bedtime. [facility] atorvastati 2015-05 Yes [id number] 10mg Take 1 [facility] n (LIPITOR) 1-02 tablet by ity of 10 mg 00:00: mouth at [place] tablet 00 bedtime. [facility] atorvasta 2015-05 Yes [id number] 10mg Take 1 [facility] n (LIPITOR) 1-02 tablet by ity of 10 mg 00:00: mouth at [place] tablet 00 bedtime. [facility] atorvasta 2015- Yes [id number] 10mg Take 1 [facility] n (LIPITOR) 1-02 tablet by ity of 10 mg 00:00: mouth at [place] tablet 00 bedtime. [facility] atorvasta 2015-05 Yes [id number] 10mg Take 1 [facility] n (LIPITOR) 1-02 tablet by ity of 10 mg 00:00: mouth at [place] tablet 00 bedtime. [facility] Immunizations Ordered Immunization Filled Immunization Date Status Commen ts Source Name Name PFIZER COVID-19 MRNA 2021-06-10 Completed [facility] VACCINATION 00:00:00 [facility] PFIZER COVID-19 MRNA 2021-06-10 Completed [facility] VACCINATION 00:00:00 [facility] PFIZER COVID-19 MRNA 2021-06-10 Completed [facility] VACCINATION 00:00:00 [facility] PFIZER COVID-19 MRNA 2021-06-10 Completed [facility] VACCINATION 00:00:00 [facility] PFIZER COVID-19 MRNA 2021-06-10 Completed [facility] VACCINATION 00:00:00 [facility] PFIZER COVID-19 MRNA 2021-06-10 Completed [facility] VACCINATION 00:00:00 [facility] PFIZER COVID-19 MRNA 2021-06-10 Completed [facility] VACCINATION 00:00:00 [facility] PFIZER COVID-19 MRNA 2021-06-10 Completed [facility] odist VACCINATION 00:00:00 [facility] PFIZER COVID-19 MRNA 2020-07-09 Completed [facility] VACCINATION 00:00:00 [facility] PFIZER COVID-19 MRNA 2020-07-09 Completed [facility] VACCINATION 00:00:00 [facility] PFIZER COVID-19 MRNA 2020-07-09 Completed [facility] VACCINATION 00:00:00 [facility] PFIZER COVID-19 MRNA 2020-07-09 Completed [facility] VACCINATION 00:00:00 [facility] PFIZER COVID-19 MRNA 2020-07-09 Completed [facility]ist VACCINATION 00:00:00 [facility] PFIZER COVID-19 MRNA 2020-07-09 Completed [facility]ist VACCINATION 00:00:00 [facility] PFIZER COVID-19 MRNA 2020-07-09 Completed [facility] VACCINATION 00:00:00 Hospital PFIZER COVID-19 MRNA 2020-07-09 Completed [facility] VACCINATION 00:00:00 [facility] PFIZER COVID-19 MRNA 2020-06-18 Completed [facility]ist VACCINATION 00:00:00 [facility] PFIZER COVID-19 MRNA 2020-06-18 Completed [facility] VACCINATION 00:00:00 [facility] PFIZER COVID-19 MRNA 2020-06-18 Completed [facility] odist VACCINATION 00:00:00 [facility] PFIZER COVID-19 MRNA 2020-06-18 Completed [facility] odist VACCINATION 00:00:00 [facility] PFIZER COVID-19 MRNA 2020-06-18 Completed [facility] VACCINATION 00:00:00 Hospital PFIZER COVID-19 MRNA 2020-06-18 Completed [facility] VACCINATION 00:00:00 [facility] PFIZER COVID-19 MRNA 2020-06-18 Completed [facility] VACCINATION 00:00:00 [facility] PFIZER COVID-19 MRNA 2020-06-18 Completed [facility] VACCINATION 00:00:00 Hospital Pneumococcal 2020-04-29 Completed [facility] Polysaccharide 00:00:00 Hospital Zoster 2020-04-29 Completed [facility] 00:00:00 [facility] Pneumococcal 2020-04-29 Completed [facility] Polysaccharide 00:00:00 Hospital Zoster 2020-04-29 Completed [facility] 00:00:00 [facility] Pneumococcal 2020-04-29 Completed [facility] Polysaccharide 00:00:00 Hospital Zoster 2020-04-29 Completed [facility] 00:00:00 Hospital Pneumococcal 2020-04-29 Completed [facility] Polysaccharide 00:00:00 Hospital Zoster 2020-04-29 Completed [facility] 00:00:00 [facility] Pneumococcal 2020-04-29 Completed [facility] Polysaccharide 00:00:00 Hospital Zoster 2020-04-29 Completed [facility] 00:00:00 [facility] Pneumococcal 2020-04-29 Completed [facility] Polysaccharide 00:00:00 Hospital Zoster 2020-04-29 Completed [facility] 00:00:00 Hospital Pneumococcal 2020-04-29 Completed [facility] Polysaccharide 00:00:00 Hospital Zoster 2020-04-29 Completed [facility] 00:00:00 Hospital Pneumococcal 2020-04-29 Completed [facility] Polysaccharide 00:00:00 Hospital Zoster 2020-04-29 Completed [facility] 00:00:00 Hospital Pneumococcal 2019-05-13 Completed [facility] Conjugate 13-Valent 00:00:00 [facility] Pneumococcal 2019-05-13 Completed [facility] Conjugate 13-Valent 00:00:00 Hospi true Pneumococcal 2019-05-13 Completed [facility] Conjugate 13-Valent 00:00:00 Hospi true Pneumococcal 2019-05-13 Completed [facility] Conjugate 13-Valent 00:00:00 Hospi true Pneumococcal 2019-05-13 Completed [facility] Conjugate 13-Valent 00:00:00 Hospi true Pneumococcal 2019-05-13 Completed [facility] Conjugate 13-Valent 00:00:00 Hospi true Pneumococcal 2019-05-13 Completed [facility] Conjugate 13-Valent 00:00:00 Hospi true Pneumococcal 2019-05-13 Completed [facility] Conjugate [facility] FLUCELV[facility] 2019-03-[address] 00:[facility]00 Hospital FLUCELVAX QUAD PF 2019-03-[address] 00:00:00 [facility] FLUCELVAX QUAD PF 2019-03-05 Completed [...] [facility] 00:00:00 Hospital Influenza, 2016-02-03 Completed [facility] Unspecified 00:00:00 Hospital Pneumococcal 2016-02-03 Completed [facility] Conjugate 13-Valent 00:00:00 [facility]pi true Tdap 2016-02-03 Completed [facility] 00:00:00 [facility] Influenza, 2016-02-03 Completed [facility] Unspecified 00:00:00 Hospital Pneumococcal 2016-02-03 Completed [facility] Conjugate 13-Valent 00:00:00 Hospi true Tdap 2016-02-03 Completed [facility] 00:00:00 [facility] Influenza, 2016-02-03 Completed [facility] Unspecified 00:00:00 Hospital Pneumococcal 2016-02-03 Completed [facility] Conjugate 13-Valent 00:00:00 Hospi true Tdap 2016-02-03 Completed [facility] 00:00:00 Hospital Influenza, 2016-02-03 Completed [facility] Unspecified 00:00:00 Hospital Pneumococcal 2016-02-03 Completed [facility] Conjugate 13-Valent 00:00:00 Hospi true Tdap 2016-02-03 Completed [facility] 00:00:00 [facility] Influenza, 2016-02-03 Completed [facility] Unspecified 00:00:00 Hospital Pneumococcal 2016-02-03 Completed [facility] Conjugate 13-Valent 00:00:00 Hospi true Tdap 2016-02-03 Completed [facility] 00:00:00 Hospital Influenza, 2016-02-03 Completed [facility] Unspecified 00:00:00 Hospital Pneumococcal 2016-02-03 Completed [facility] Conjugate 13-Valent 00:00:00 Hospi true Tdap 2016-02-03 Completed [facility] 00:00:00 Hospital Influenza, 2016-02-03 Completed [facility] Unspecified 00:00:00 Hospital Pneumococcal 2016-02-03 Completed [facility] Conjugate 13-Valent 00:00:00 Hospi true Tdap 2016-02-03 Completed [facility] 00:00:00 Hospital Influenza, 2016-02-03 Completed [facility] Unspecified 00:00:00 Hospital Pneumococcal 2016-02-03 Completed [facility] Conjugate 13-Valent 00:00:00 Hospi true Tdap 2016-02-03 Completed [facility] 00:00:00 [facility] Influenza Virus 2016-02-03 Completed Universit y of Vaccine 00:00:00 [facility] Pneumococcal 13 2016-02-03 Completed Universit y of Conjugate, PCV13 00:00:00 [place] [facility] (Prevnar 13[facility] 2016-02-03 Completed University of 00:00:00 [facility] Influenza Virus 2016-02-03 Completed Universit y of Vaccine 00:00:00 [facility] Pneumococcal 13 2016-02-03 Completed Universit y of Conjugate, PCV13 00:00:00 [place] [facility] (Prevnar 13) [facility] 2016-02-03 Completed University of 00:00:00 [facility] Influenza Virus 2016-02-03 Completed Universit y of Vaccine 00:00:00 [facility] Pneumococcal 13 2016-02-03 Completed Universit y of Conjugate, PCV13 00:00:00 [place] [facility] (Prevnar 13) [facility] 2016-02-03 Completed University of 00:00:00 [facility] Influenza Virus 2016-02-03 Completed Universit y of Vaccine 00:00:00 [facility] Pneumococcal 13 2016-02-03 Completed Universit y of Conjugate, PCV13 00:00:00 [place] [facility] (Prevnar 13) [facility] 2016-02-03 Completed University of 00:00:00 [facility] Influenza Virus 2016-02-03 Completed Universit y of Vaccine 00:00:00 [facility] Pneumococcal 13 2016-02-03 Completed Universit y of Conjugate, PCV13 00:00:00 [place] [facility] (Prevnar 13) [facility] 2016-02-03 Completed University of 00:00:00 [facility] Influenza Virus 2016-02-03 Completed Universit y of Vaccine 00:00:00 [facility] Pneumococcal 13 2016-02-03 Completed Universit y of Conjugate, PCV13 00:00:00 [place] [facility] (Prevnar 13) [facility] 2016-02-03 Completed University of 00:00:00 [facility] Influenza Virus 2016-02-03 Completed Universit y of Vaccine 00:00:00 [facility] Pneumococcal 13 2016-02-03 Completed Universit y of Conjugate, PCV13 00:00:00 [facility] dical (Prevnar 13) Branch [facility] 2016-02-03 Completed University of 00:00:00 [facility] Influenza Virus 2016-02-03 Completed Universit y of Vaccine 00:00:00 [facility] Pneumococcal 13 2016-02-03 Completed Universit y of Conjugate, PCV13 00:00:00 [facility] dical (Prevnar 13) Branch [facility] 2016-02-03 Completed University of 00:00:00 [facility] Influenza Virus 2016-02-03 Completed Universit y of Vaccine 00:00:00 [facility] Pneumococcal 13 2016-02-03 Completed Universit y of Conjugate, PCV13 00:00:00 [facility] dical (Prevnar 13) Branch [facility] 2016-02-03 Completed University of 00:00:00 [facility] Influenza Virus 2016-02-03 Completed Universit y of Vaccine 00:00:00 [facility] Pneumococcal 13 2016-02-03 Completed Universit y of Conjugate, PCV13 00:00:00 [facility] dical (Prevnar 13) Branch [facility] 2016-02-03 Completed University of 00:00:00 [facility] Influenza Virus 2016-02-03 Completed Universit y of Vaccine 00:00:00 [facility] Pneumococcal 13 2016-02-03 Completed Universit y of Conjugate, PCV13 00:00:00 [facility] dical (Prevnar 13) Branch [facility] 2016-02-03 Completed University of 00:00:00 [facility] Influenza, 2015-01-05 Completed [facility] Unspecified 00:00:00 Hospital Pneumococcal 2015-01-05 Completed [facility] Conjugate 13-Valent 00:00:00 Hospi true Td 2015-01-05 Completed [facility] 00:00:00 Hospital Influenza, 2015-01-05 Completed [facility] Unspecified 00:00:00 Hospital Pneumococcal 2015-01-05 Completed [facility] Conjugate 13-Valent 00:00:00 Hospi true Td 2015-01-05 Completed [facility] 00:00:00 Hospital Influenza, 2015-01-05 Completed [facility] Unspecified 00:00:00 Hospital Pneumococcal 2015-01-05 Completed [facility] Conjugate 13-Valent 00:00:00 [facility] Td 2015-01-05 Completed [facility] 00:00:00 Hospital Influenza, 2015-01-05 Completed [facility] Unspecified 00:00:00 Hospital Pneumococcal 2015-01-05 Completed [facility] Conjugate 13-Valent 00:00:00 [facility] Td 2015-01-05 Completed [facility] 00:00:00 Hospital Influenza, 2015-01-05 Completed [facility] Unspecified 00:00:00 Hospital Pneumococcal 2015-01-05 Completed [facility] Conjugate 13-Valent 00:00:00 [facility] Td 2015-01-05 Completed [facility] 00:00:00 [facility] Influenza, 2015-01-05 Completed [facility] Unspecified 00:00:00 Hospital Pneumococcal 2015-01-05 Completed [facility] Conjugate 13-Valent 00:00:00 [facility] Td 2015-01-05 Completed [facility] 00:00:00 Hospital Influenza, 2015-01-05 Completed [facility] Unspecified 00:00:00 Hospital Pneumococcal 2015-01-05 Completed [facility] Conjugate 13-Valent 00:00:00 [facility] Td 2015-01-05 Completed [facility] 00:00:00 Hospital Influenza, 2015-01-05 Completed [facility] Unspecified 00:00:00 Hospital Pneumococcal 2015-01-05 Completed [facility] Conjugate 13-Valent 00:00:00 [facility] Td 2015-01-05 Completed [facility] 00:[facility]:00 [facility] Influenza Virus 2015-01-05 Completed [facility]it y of Vaccine 00:00:00 [facility] Pneumococcal 13 2015-01-05 Completed Universit y of Conjugate, PCV13 00:00:00 [facility] dical (Prevnar 13) Branch Tetanus/Diptheria 2015-01-05 Completed Univers ity of 00:00:00 [facility] Influenza Virus 2015-01-05 Completed Universit y of Vaccine 00:00:00 [facility] Pneumococcal 13 2015-01-05 Completed Universit y of Conjugate, PCV13 00:00:00 [place] [facility] (Prevnar 13) [facility] Tetanus/Diptheria 2015-01-05 Completed Univers ity of 00:00:00 [facility] Influenza Virus 2015-01-05 Completed Universit y of Vaccine 00:00:00 [facility] Pneumococcal 13 2015-01-05 Completed Universit y of Conjugate, PCV13 00:00:00 [facility] dical (Prevnar 13) Branch Tetanus/Diptheria 2015-01-05 Completed Univers ity of 00:00:00 [facility] Influenza Virus 2015-01-05 Completed Universit y of Vaccine 00:00:00 [facility] Pneumococcal 13 2015-01-05 Completed Universit y of Conjugate, PCV13 00:00:00 [facility] dical (Prevnar 13) Branch Tetanus/Diptheria 2015-01-05 Completed Univers ity of 00:00:00 [facility] Influenza Virus 2015-01-05 Completed Universit y of Vaccine 00:00:00 [facility] Pneumococcal 13 2015-01-05 Completed Universit y of Conjugate, PCV13 00:00:00 [facility] dical (Prevnar 13) Branch Tetanus/Diptheria 2015-01-05 Completed Univers ity of 00:00:00 [facility] Influenza Virus 2015-01-05 Completed Universit y of Vaccine 00:00:00 [facility] Pneumococcal 13 2015-01-05 Completed Universit y of Conjugate, PCV13 00:00:00 [facility] dical (Prevnar 13) Branch Tetanus/Diptheria 2015-01-05 Completed Univers ity of 00:00:00 [facility] Influenza Virus 2015-01-05 Completed Universit y of Vaccine 00:00:00 [facility] Pneumococcal 13 2015-01-05 Completed Universit y of Conjugate, PCV13 00:00:00 [facility] dical (Prevnar 13) Branch Tetanus/Diptheria 2015-01-05 Completed Univers ity of 00:00:00 [facility] Influenza Virus 2015-01-05 Completed Universit y of Vaccine 00:00:00 [facility] Pneumococcal 13 2015-01-05 Completed Universit y of Conjugate, PCV13 00:00:00 [facility] dical (Prevnar 13) Branch Tetanus/Diptheria 2015-01-05 Completed Univers ity of 00:00:00 [facility] Influenza Virus 2015-01-05 Completed Universit y of Vaccine 00:00:00 [facility] Pneumococcal 13 2015-01-05 Completed Universit y of Conjugate, PCV13 00:00:00 [facility] dical (Prevnar 13) Branch Tetanus/Diptheria 2015-01-05 Completed Univers ity of 00:00:00 [facility] Influenza Virus 2015-01-05 Completed [facility]it y of Vaccine 00:00:00 [place] [facility] Pneumococcal 13 2015-01-05 Completed Universit y of Conjugate, PCV13 00:00:00 [place] [facility] (Prevnar 13) [facility] Tetanus/Diptheria 2015-01-05 Completed Univers ity of 00:00:00 [facility] Influenza Virus 2015-01-05 Completed Universit y of Vaccine 00:00:00 [facility] Pneumococcal 13 2015-01-05 Completed Universit y of Conjugate, PCV13 00:00:00 [place] [facility] (Prevnar 13) Branch Tetanus/Diptheria 2015-01-05 Completed Univers ity of 00:00:00 [facility] Pneumococcal 2013-05-21 Completed [facility] Conjugate 00:00:00 Hospital Tdap 2013-05-21 Completed [facility] 00:00:00 Hospital Pneumococcal 2013-05-21 Completed [facility] Conjugate 00:00:00 Hospital Tdap 2013-05-21 Completed [facility] 00:00:00 Hospital Pneumococcal 2013-05-21 Completed [facility] Conjugate 00:00:00 Hospital Tdap 2013-05-21 Completed [facility] 00:00:00 Hospital Pneumococcal 2013-05-21 Completed [facility] Conjugate 00:00:00 Hospital Tdap 2013-05-21 Completed [facility] 00:00:00 Hospital Pneumococcal 2013-05-21 Completed [facility] Conjugate 00:00:00 Hospital Tdap 2013-05-21 Completed [facility] 00:00:00 Hospital Pneumococcal 2013-05-21 Completed [facility] Conjugate 00:00:00 Hospital Tdap 2013-05-21 Completed [facility] 00:00:00 Hospital Pneumococcal 2013-05-21 Completed [facility] Conjugate 00:00:00 Hospital Tdap 2013-05-21 Completed [facility] 00:00:00 Hospital Pneumococcal 2013-05-21 Completed [facility] Conjugate 00:00:00 Hospital Tdap 2013-05-21 Completed [facility] 00:00:00 Hospital H1N1 All Forms 2009-04-20 Completed [facility] 00:00:00 Hospital H1N1 All Forms 2009-04-20 Completed [facility] 00:00:00 Hospital H1N1 All Forms 2009-04-20 Completed [facility] 00:00:00 Hospital H1N1 All Forms 2009-04-20 Completed [facility] 00:00:00 Hospital H1N1 All Forms 2009-04-20 Completed [facility] 00:00:00 Hospital H1N1 All Forms 2009-04-20 Completed [facility] 00:00:00 Hospital H1N1 All Forms 2009-04-20 Completed [facility] 00:00:00 Hospital H1N1 All Forms 2009-04-20 Completed [facility] 00:[facility]:00 Hospital Vital Signs Vital Name Observation Time Observation Value Comments Source HEIGHT 2022-01-14 10:00:00 162.6 cm WEIGHT 2022-01-14 10:00:00 68.04 kg HEIGHT 2022-01-14 10:00:00 162.6 cm WEIGHT 2022-01-14 10:00:00 68.04 kg Systolic blood 2022-01-18 12:00:00 117 mm[Hg] [facility] Diastolic blood 2022-01-18 12:00:00 51 mm[Hg] [facility] Heart rate 2022-01-18 12:00:00 80 /min [facility] Body temperature 2022-01-18 12:00:00 36.78 [facility] Respiratory rate 2022-01-18 12:00:00 18 /min [facility] Oxygen saturation in 2022-01-18 12:00:00 100 /min [facility] Arterial blood by [facility] Pulse oximetry Body height 2022-01-14 10:00:00 162.6 cm [facility] Body weight 2022-01-14 10:00:00 68.04 kg [facility] BMI 2022-01-14 10:00:00 25.75 kg/m2 [facility] Systolic blood 2021-09-16 23:24:00 145 mm[Hg] [facility] pressure Diastolic blood 2021-09-16 23:24:00 78 mm[Hg] [facility] pressure Heart rate 2021-09-16 23:00:00 80 /min [facility] Respiratory rate 2021-09-16 23:00:00 19 /min [facility] Body temperature 2021-09-16 19:25:00 36.28 [facility] Oxygen saturation in 2021-09-16 15:57:32 98 /min [facility] Arterial blood by Pulse oximetry Body height 2021-09-07 12:58:00 162.6 cm [facility] Body weight 2021-09-07 12:58:00 67.3 kg [facility] BMI 2021-09-07 12:58:00 25.47 kg/m2 [facility] Procedures Procedure Date / Time Performing Source Performed Clinician [id number] 2022-10-11 [facility] 00:00:00 [facility] [place] EXTERNAL PROVIDER RECORDS 2022-07-05 [facility] 06:01:00 Unassigned, No Medical Branch Name EXTERNAL PROVIDER RECORDS 2022-04-01 [facility] 06:01:00 Unassigned, No Medical Branch Name POCT-GLUCOSE METER 2022-01-18 Annalee Bey [facility] 12:10:00 Center HEMODIALYSIS INPATIENT 2022-01-18 [place] kelly [facility] 07:52:23 Ronald Center BASIC METABOLIC PANEL 2022-01-18 Reji, [facility] 06:09:00 Center POCT-GLUCOSE METER 2022-01-17 [facility], [facility] 19:46:00 Center POCT-GLUCOSE METER 2022-01-17 [facility], [facility] 17:06:00 Center POCT-GLUCOSE METER 2022-01-17 [facility], [facility] 12:13:00 Center POCT-GLUCOSE METER 2022-01-17 [facility], [facility] 08:29:00 Center BASIC METABOLIC PANEL 2022-01-17 [facility], [facility] 03:23:00 Center POCT-GLUCOSE METER 2022-01-16 [facility], [facility] 20:16:00 Center POCT-GLUCOSE METER 2022-01-16 [facility], [facility] 15:46:00 Center POCT-GLUCOSE METER 2022-01-16 [facility], [facility] 11:46:00 Center POCT-GLUCOSE METER 2022-01-16 Reji, [facility] 07:47:00 Center POCT-GLUCOSE METER 2022-01-15 [facility], [facility] 20:13:00 Center POCT-GLUCOSE METER 2022-01-15 [facility], [facility] 17:54:00 Center POCT-GLUCOSE METER 2022-01-15 [facility], [facility] 12:31:00 Center HEMODIALYSIS INPATIENT 2022-01-15 [facility] 10:06:42 Aguila Cecil [place] POCT-GLUCOSE METER 2022-01-[address] [facility] 07:32:00 [place] BASIC METABOLIC PANEL 2022-01-15 [facility] 03:58:00 [place] POCT-GLUCOSE METER 2022-01-[address] [facility] 20:42:00 [place] POCT-GLUCOSE METER 2022-01-[address] [facility] 15:38:00 [place] SARS-COV2/RT-PCR ([facility] & REF 2022-01-[address] [facility] LABS) 14:57:00 [place] XR CHEST 1 VIEW PORTABLE / 2022-01-14 [facility] BEDSIDE 14:38:00 [place] POCT-GLUCOSE METER 2022-01-[address] [facility] 12:02:00 [place] IR CENTRAL VENOUS CATHETER 2022-01-14 [facility] PLACEMENT (JUGULAR OR FEMORAL) 11:14:00 enter POCT-GLUCOSE METER 2022-01-[address] [facility] 08:24:00 [place] CBC (HEMOGRAM ONLY) 2022-01-[address] [facility] 04:11:00 [place] BASIC METABOLIC PANEL 2022-01-14 [facility] 04:11:00 [place] POCT-GLUCOSE METER 2022-01-[address] [facility] 19:39:00 [place] POCT-GLUCOSE METER 2022-01-[address] [facility] 16:37:00 [place] POCT-GLUCOSE METER 2022-01-[address] [facility] 13:51:00 [place] BLOOD GAS, ARTERIAL 2022-01-[address] [facility] 08:41:00 [place] POCT-GLUCOSE METER 2022-01-[address] [facility] 08:25:[address] [place] [address] BRAIN WITHOUT IV CONTRAST 2022-01-[address] [facility] 07:50:00 [place] COMPREHENSIVE METABOLIC PANEL 2022-01-13 [facility], [facility] 07:29:00 [place] TROPONIN I 2022-01-13 [facility], [facility] ical 07:29:00 [place] TSH/FREE T4 IF INDICATED 2022-01-13 [facility], [facility] 07:29:00 [place] CBC W/PLT COUNT & AUTO 2022-01-13 [facility], [facility] DIFFERENTIAL 07:29:00 [place] CBC W/PLT COUNT & AUTO 2022-01-13 [facility], [facility] DIFFERENTIAL 07:29:00 [place] POCT-GLUCOSE METER 2022-01-13 [facility], [facility] 07:04:00 [place] POCT-GLUCOSE METER 2022-01-13 [facility], [facility] 06:21:00 [place] POCT-GLUCOSE METER 2022-01-12 [facility], [facility] 20:53:00 [place] POCT-GLUCOSE METER 2022-01-12 [facility], [facility] 19:20:00 [place] POCT-GLUCOSE METER 2022-01-12 [facility], [facility] 18:50:00 [place] POCT-GLUCOSE METER 2022-01-12 [facility], [facility] 17:58:00 [place] IR TUNNELED CATHETER INSERTION 2022-01-12 Rufina Owen [facility] 16:30:00 [facility] POCT-GLUCOSE METER 2022-01-12 [facility], [facility] 12:08:00 [place] POCT-GLUCOSE METER 2022-01-12 [facility] 08:49:00 [place] CBC W/PLT COUNT & AUTO 2022-01-12 [facility] Medical DIFFERENTIAL 05:39:00 [place] BASIC METABOLIC PANEL 2022-01-12 [facility] 05:39:00 [place] MAGNESIUM 2022-01-12 [facility] dical 05:39:00 [place] PHOSPHORUS 2022-01-12 [facility] dical 05:39:00 [place] PROTHROMBIN TIME/INR 2022-01-12 [facility], Annalee Jan [facility] 05:39:00 Center APTT 2022-01-12 [facility], Annalee Montoya [facility] dical 05:39:00 [place] CBC W/PLT COUNT & AUTO 2022-01-12 [facility], Annalee Montoya [facility] DIFFERENTIAL 05:39:00 [place] (MANUAL DIFFERENTIAL) 2022-01-12 [facility], Annalee Jan [facility] St Camille [facility] 05:39:00 [place] POCT-GLUCOSE METER 2022-01-11 [facility], Annalee Jan [facility] 19:49:00 [place] POCT-GLUCOSE METER 2022-01-11 [facility], Annalee Jan [facility] 17:57:00 [place] POCT-GLUCOSE METER 2022-01-11 [facility], Annalee Jan [facility] 12:37:00 [place] HEMODIALYSIS INPATIENT 2022-01-11 Lexie Ameliadora [facility] 12:29:[address] [facility] POCT-GLUCOSE METER 2022-01-11 [facility], Annalee Jan [facility] 07:49:00 [place] POCT-GLUCOSE METER 2022-01-10 [facility], Annalee Montoya [facility] 21:16:00 [place] POCT-GLUCOSE METER 2022-01-10 [facility], Annalee Jan [facility] 15:24:00 [place] IR TUNNEL CATHETER EXCHANGE 2022-01-10 Natacha Schulz [facility] 11:23:00 [facility] POCT-GLUCOSE METER 2022-01-10 [facility], Annalee Jan [facility] 11:21:00 [place] CBC W/PLT COUNT & AUTO 2022-01-10 [facility], Annalee Jan [facility] DIFFERENTIAL 04:13:00 [place] BASIC METABOLIC PANEL 2022-01-10 [facility], Annalee Jan [facility] Camille [facility] 04:13:00 [place] MAGNESIUM 2022-01-10 [facility], Annalee Montoya [facility] d[facility] 04:13:00 [place] PHOSPHORUS 2022-01-10 [facility], Annalee Jan [facility] dical 04:13:00 Center APTT 2022-01-[address] [facility] ical 04:13:00 Center CBC W/PLT COUNT & AUTO 2022-01-10 Shieh, Annalee Jan [facility] DIFFERENTIAL 04:13:00 Center POCT-GLUCOSE METER 2022-01-09 Shieh, Annalee Jan [facility] 21:15:00 Center APTT 2022-01-09 Shieh, Annalee [facility] 19:08:00 Center POCT-GLUCOSE METER 2022-01-09 Shieh, Annalee Jan [facility] 17:02:00 Center POCT-GLUCOSE METER 2022-01-09 Shieh, Annalee Jan [facility] 11:22:00 Center APTT 2022-01-09 Shieh, Annalee Jan [facility] 09:44:00 Center POCT-GLUCOSE METER 2022-01-09 Shieh, Annalee Jan [facility] 07:19:00 Center POCT-GLUCOSE METER 2022-01-09 Shieh, Annalee Jan [facility] 05:05:00 [place] CBC W/PLT COUNT & AUTO 2022-01-09 Shieh, Annalee Jan [facility] DIFFERENTIAL 04:57:00 [place] BASIC METABOLIC PANEL 2022-01-09 Shieh, Annalee Jan [facility] Camille kes Medical 04:57:00 [place] MAGNESIUM 2022-01-09 Shieh, Annalee Jan [facility] 04:57:00 [place] PHOSPHORUS 2022-01-09 Shieh, Annalee Jan [facility] 04:57:00 [place] CBC W/PLT COUNT & AUTO 2022-01-09 Shieh, Annalee Montoya [facility] DIFFERENTIAL 04:57:00 Center APTT 2022-01-09 Shieh, Annalee Jan [facility] 00:34:00 [place] POCT-GLUCOSE METER 2022-01-08 Shieh, Annalee Montoya [facility] 16:49:00 Center APTT 2022-01-08 Shieh, Annalee Montoya [facility] d[facility] 16:13:00 [place] HEMODIALYSIS INPATIENT 2022-01-08 Rufina Owen [facility] 15:47:52 [facility] HEPATITIS B SURFACE ANTIGEN 2022-01-08 Lexie, [facility] 15:40:00 [facility] HEPATITIS B SURFACE ANTIBODY 2022-01-08 Lexie [facility] 15:40:00 [facility] POCT-GLUCOSE METER 2022-01-08 [facility] Medical 12:18:00 [place] POCT-GLUCOSE METER 2022-01-08 [facility] Medical 07:59:00 [place] CBC W/PLT COUNT & AUTO 2022-01-08 [facility] DIFFERENTIAL 05:27:00 [place] BASIC METABOLIC PANEL 2022-01-08 [facility] 05:27:00 [place] MAGNESIUM 2022-01-08 [facility] 05:27:00 [place] PHOSPHORUS 2022-01-08 [facility] 05:27:00 [place] HEMOGLOBIN A1C 2022-01-08 [facility], Annalee Jan [facility] 05:27:00 [place] CBC W/PLT COUNT & AUTO 2022-01-08 [facility] DIFFERENTIAL 05:27:00 [place] APTT 2022-01-08 Joanna Owens [facility] 05:26:00 [place] POCT-GLUCOSE METER 2022-01-07 [facility] Medical 21:01:00 [place] APTT 2022-01-07 Merry Owensia [facility] 21:00:00 [place] CARDIAC CATH REPORT - SCAN 2022-01-07 Provider, [facility] S t Luchi [facility] Medical 00:00:00 Default Scanning [place] EKG-SCANNED 2022-01-07 Provider, [facility] ical 00:00:00 Default Scanning [place] HEMODIALYSIS 2021-09-16 Mary[facility]armen [facility] 20:36:27 Alexandru Das POC GLUCOSE 2021-09-16 Corrine Osuan Hospit al 15:59:00 POC GLUCOSE 2021-09-16 Corrine Osuna Hospit al 11:10:00 POC GLUCOSE 2021-09-16 Al-Lahiq, [facility] 01:24:00 POC GLUCOSE 2021-09-15 Al-Lahiq, [facility] 20:54:00 POC GLUCOSE 2021-09-15 Al-Lahiq, [facility] 16:27:00 POC GLUCOSE 2021-09-15 Al-Lahiq, [facility] 12:04:00 POC GLUCOSE 2021-09-15 Al-Lahiq, [facility] 11:16:00 POC GLUCOSE 2021-09-15 Al-Lahiq, [facility] 01:21:00 POC GLUCOSE 2021-09-14 Al-Lahiq, [facility] 21:57:00 POC GLUCOSE 2021-09-14 Al-Lahiq, [facility] 17:17:00 IR TUNNELED DIALYSIS CATHETER 2021-09-14 Michoacano Owens [facility] REPLACEMENT/EXCHANGE 13:59:03 Oliver-Eloy HEMODIALYSIS 2021-09-14 [facility] 12:42[facility]40 Alexandru Das POC GLUCOSE 2021-09-14 [facility] 11:19:00 BASIC METABOLIC PANEL 2021-09-14 [facility] 09:34:00 Alexandru Das ESTIMATED GFR 2021-09-14 [facility] 09:[facility]00 Alexandru PaceZCOVID-19 ANTI-SPIKE IGG 2021-09-14 [facility] ANTIBODY TITER 03:25:00 Poornima TYPE AND SCREEN 2021-09-14 [facility] 03:25:00 Poornima PaceZCOVID-19 SEROLOGY PATIENT 2021-09-14 [facility] SURVEILLANCE 03:25:00 Oliver-Eloy POC GLUCOSE 2021-09-14 [facility]iq, [facility] 01:33:00 POC GLUCOSE 2021-09-13 [facility]ahiq, [facility] 23:43:00 SURGICAL PATHOLOGY REQUEST 2021-09-13 Al-Lamark, [facility] 20:11:00 ESOPHAGOGASTRODUODENOSCOPY (EGD) 2021-09-13 [facility] 19:58:00 Claudio Ongeri POC GLUCOSE 2021-09-13 Al-Lahiq, [facility] 17:23:00 POC GLUCOSE 2021-09-13 Al-Lahiq, [facility] 11:26:00 BASIC METABOLIC PANEL 2021-09-13 [facility] 10:25:00 Alexandru Das CBC WITH PLATELET AND 2021-09-13 [facility] DIFFERENTIAL 10:25:00 PARTIAL THROMBOPLASTIN TIME (PTT) 2021-09-13 [facility] 10:25:00 ESTIMATED GFR 2021-09-13 [facility] Hospit al 10:25:00 Alexandru Das PROTHROMBIN TIME WITH INR 2021-09-13 AveryKaitlyn, [facility] 10:25:00 POC GLUCOSE 2021-09-13 Al-Lahiq, [facility] 00:48:00 ECG 12-LEAD 2021-09-12 [facility] [place] al 23:22:14 Claudio Ongeri POC GLUCOSE 2021-09-12 Al-Lahiq, [facility] 22:53:00 POC GLUCOSE 2021-09-12 Al-Lahiq, [facility] 21:49:00 POC GLUCOSE 2021-09-12 Al-Lahiq, [facility] 16:57:00 POC GLUCOSE 2021-09-12 Al-Lahiq, [facility] 11:26:00 POC GLUCOSE 2021-09-12 Al-Lahiq, [facility] 11:01:00 BASIC METABOLIC PANEL 2021-09-12 [facility] 09:15:00 Alexandru Das ESTIMATED GFR 2021-09-12 [facility] Hospit al 09:15:00 Alexandru Laxmanrao HEMODIALYSIS 2021-09-12 [facility] Hospit al 02:06:24 Alexandrura Corcoranrao POC GLUCOSE 2021-09-12 Al-Lahiq, [facility] Hospit al 01:05:00 POC GLUCOSE 2021-09-11 Al-Lahiq, [facility] Hospit al 21:53:00 POC GLUCOSE 2021-09-11 Al-Lamsq, [facility] Hospit al 16:41:00 HEMODIALYSIS 2021-09-11 [facility] Hospit al 15:53:24 Alexnadrulake Corcoranrao POC GLUCOSE 2021-09-11 Al-Lahiq, [facility] Hospit al 11:14:00 ZZCOVID-19 ANTI-SPIKE IGG 2021-09-11 [facility], [facility] ANTIBODY TITER 09:40:00 BASIC METABOLIC PANEL 2021-09-11 [facility] 09:40:00 Alexandru Das HEMOGLOBIN A1C 2021-09-11 Ky-Lamsq, [facility] Hospit al 09:40:00 ZZCOVID-19 SEROLOGY PATIENT 2021-09-11 [facility] SURVEILLANCE 09:40:00 CBC WITH PLATELET AND 2021-09-11 [facility], [facility] DIFFERENTIAL 09:40:00 ESTIMATED GFR 2021-09-11 [facility] Hospit al 09:40:00 Alexandru Das POC GLUCOSE 2021-09-11 Al-Lahiq, [facility] Hospit al 00:39:00 POC GLUCOSE 2021-09-10 Al-Lahiq, [facility] Hospit al 21:14:00 CORTISOL LEVEL, AM 2021-09-10 Al-Lamsq, [facility] 16:58:00 POC GLUCOSE 2021-09-10 Al-Lahiq, [facility] Hospit al 15:59:00 POC GLUCOSE 2021-09-10 Al-Lahiq, [facility] Hospit al 11:26:00 BASIC METABOLIC PANEL 2021-09-10 [facility] 09:55:00 Alexandru Laxmanrao ESTIMATED GFR 2021-09-10 [facility] Hospit al 09:55:00 Alexandru Laxmanrao POC GLUCOSE 2021-09-10 Al-Lahiq, [facility] 00:18:00 POC GLUCOSE 2021-09-09 [facility]Lahiq, [facility] 21:28:00 POC GLUCOSE 2021-09-09 [facility]Lahiq, [facility] 16:28:00 CT HEAD WO CONTRAST 2021-09-09 Al-Lahiq, [facility] spital 14:48:37 HEMODIALYSIS 2021-09-09 [facility] Hospit al 14:08:47 Alexandru Laxmanrao POC GLUCOSE 2021-09-09 Al-Lahiq, [facility] 11:30:00 BASIC METABOLIC PANEL 2021-09-09 [facility] 10:45:00 Alexandru Laxmanrao ESTIMATED GFR 2021-09-09 [facility] Hospit al 10:45:00 Alexandru Laxmanrao POC GLUCOSE 2021-09-09 Al-Lahiq, [facility] al 01:10:00 POC GLUCOSE 2021-09-08 Al-Lahiq, [facility] Hospit al 21:16:00 POC GLUCOSE 2021-09-08 Al-Lahiq, [facility] al 16:10:00 BASIC METABOLIC PANEL 2021-09-08 [facility] 09:27:00 MAGNESIUM LEVEL 2021-09-08 [facility] Hospit al 09:27:00 ESTIMATED GFR 2021-09-08 Fraser, [facility] Hospit al 09:27:00 GASTROINTESTINAL PATHOGENS PANEL, 2021-09-08 Kimmy Cronin [facility] PCR 02:15:00 POC GLUCOSE 2021-09-08 Al-Lahiq, [facility] al 01:30:00 BASIC METABOLIC PANEL 2021-09-07 [facility] 18:00:00 ESTIMATED GFR 2021-09-07 Al-Lahiq, [facility] Hospit al 18:00:00 HEPATITIS B SURFACE ANTIGEN 2021-09-07 [facility] 18:00:00 Alexandru Suav HEPATITIS B SURFACE AB, 2021-09-07 [facility] QUANTITATIVE 18:00:00 Alexandru Das XR CHEST 1 VW PORTABLE 2021-09-07 [facility], [facility] 16:47:43 XR ABDOMEN 1 VW 2021-09-07 [facility], [facility] Hospit al 16:47:22 HEMODIALYSIS 2021-09-07 Haja Fraser [facility] 16:16:15 POC GLUCOSE 2021-09-07 [facility], [facility] Hospit al 11:07:00 TROPONIN T 2021-09-07 Trinidad Menard [facility] 03:35:00 Libia TROPONIN T 2021-09-07 Meh[facility]ad [facility] 00:00:00 RESPIRATORY PATHOGEN PANEL WITH 2021-09-06 [facility] COVID-19 RT-PCR 23:59:00 CT ABDOMEN PELVIS WO CONTRAST 2021-09-06 [facility] 22:16:48 ECG ED PRELIMINARY INTERPRETATION 2021-09-06 [facility] 21:23:51 ECG 12-LEAD 2021-09-06 [facility] 20:48:53 CBC WITH PLATELET AND 2021-09-06 [facility] DIFFERENTIAL 20:09:00 COMPREHENSIVE METABOLIC PANEL 2021-09-06 [facility] 20:09:00 ESTIMATED GFR 2021-09-[address] [facility] 20:09:00 MAGNESIUM LEVEL 2021-09-06 [facility] 20:09[facility]00 TROPONIN T 2021-09-06 Mehrdad [facility] 20:09:00 PHOSPHORUS LEVEL 2021-09-06 Mehrdad [facility] true 20:09:00 POC GLUCOSE 2021-08-13 [facility] Hospit al 16:22:00 Annalee POC GLUCOSE 2021-08-13 Kohlnhofer, [facility] 11:17:00 Annalee XR CHEST 1 VW PORTABLE 2021-08-13 [facility] 11:13:27 BASIC METABOLIC PANEL 2021-08-13 [facility] 10:26:00 ESTIMATED GFR 2021-08-13 Ru [facility] Hospit al 10:26:00 POC GLUCOSE 2021-08-13 Kohlnhofer, [facility] 00:38:00 Annalee HEMODIALYSIS 2021-08-13 Ru [facility] Hospit al 00:09:24 MN AN ELECTIVE ENDOTRACHEAL 2021-08-12 [facility] AIR[facility] 23:45:00 INSERTION, CATHETER, DIALYSIS, 2021-08-12 [facility], LAPAROSCOPIC 23:10:00 POC GLUCOSE 2021-08-12 [facility] 20:36:00 Annalee COVID-19 QUALITATIVE RT-PCR 2021-08-12 [facility] 17:35:00 POC GLUCOSE 2021-08-12 Rupalilnhofer, [facility] 15:58:00 Annalee POC GLUCOSE 2021-08-12 Kohlnhofer, [facility] 11:07:00 Annalee ECG 12-LEAD 2021-08-12 Harry, [facility] 11:02:39 Ricky London BASIC METABOLIC PANEL 2021-08-12 [facility] 09:47:00 Alexandru Das ESTIMATED GFR 2021-08-12 [facility] Hospit al 09:47:00 Alexandru Das POC GLUCOSE 2021-08-12 Kohlnhofer, [facility] 00:51:00 Annalee POC GLUCOSE 2021-08-11 Kohlnhofer, [facility] 20:44:00 Annalee POC GLUCOSE 2021-08-11 Kohlnhofer, [facility] 16:14:00 Annalee POC GLUCOSE 2021-08-11 Kohlnhofer, [facility] 11:06:00 Annalee POC GLUCOSE 2021-08-11 Kohlnhofer, [facility] 00:30:00 Annalee POC GLUCOSE 2021-08-10 Kohlnhofer, [facility] 20:48:00 Annalee POC GLUCOSE 2021-08-10 Kohlnhofer, [facility] 11:07:00 Annalee POC GLUCOSE 2021-08-10 Kohlnhofer, [facility] 00:46:00 Annalee POC GLUCOSE 2021-08-09 Kohlnhofer, [facility] 21:37:00 Annalee HEMODIALYSIS 2021-08-09 [facility], [facility] 17:13:01 Alexandru Laxmanrao POC GLUCOSE 2021-08-09 [facility] 16:55:00 [place]alee POC GLUCOSE 2021-08-09 Tammy Dumont [facility] 11:19:00 Donna BASIC METABOLIC PANEL 2021-08-09 [facility] 10:52:00 Alexandru Laxmanrao ESTIMATED GFR 2021-08-09 [facility] 10:52:00 Alexandru Laxmanrao PROCALCITONIN 2021-08-09 Hyacinth Guthrie [facility] 02:51:00 POC GLUCOSE 2021-08-09 Tammy Dumont [facility] 00:26:00 Donna POC GLUCOSE 2021-08-08 Tammy Dumont [facility] 21:18:00 Donna POC GLUCOSE 2021-08-08 Tammy Dumont [facility] 19:34:00 Donna POC GLUCOSE 2021-08-08 Tammy Dumont [facility] 10:58:00 Donna DIGOXIN LEVEL 2021-08-08 Ritu Graves [facility] 10:46:00 [employer] BASIC METABOLIC PANEL 2021-08-08 [facility] 10:46:00 Alexandru Laxmanrao ESTIMATED GFR 2021-08-08 [facility], [facility] 10:46:00 Alexandru Laxmanrao POC GLUCOSE 2021-08-08 [facility] 02:06:00 Donna POC GLUCOSE 2021-08-07 [facility] 23:09:00 Donna [facility]07 [facility] 20:13[facility]07 Alexandru Laxmanrao POC GLUCOSE 2021-08-07 [facility] 15:50:00 Donna POC GLUCOSE 2021-08-07 [facility] 11:19:00 Donna CBC WITH PLATELET AND 2021-08-07 [facility] DIFFERENTIAL 11:15:00 Karie COMPREHENSIVE METABOLIC PANEL 2021-08-07 [facility] 11:15:00 Karie ESTIMATED GFR 2021-08-07 [facility] 11:15:00 Karie POC GLUCOSE 2021-08-07 [facility] 00:58:00 Donna HEMODIALYSIS 2021-08-06 [facility] 21:36:17 Alexandru Laxmanrao POC GLUCOSE 2021-08-06 Mougouris, Taso [facility] 21:21:00 POC GLUCOSE 2021-08-06 Mougouris, Tas[facility] 15:39:00 BASIC METABOLIC PANEL 2021-08-06 [facility] 11:19:00 Alexandru Laxmanrao ESTIMATED GFR 2021-08-06 [facility] 11:19:00 Alexandru Laxmanrao POC GLUCOSE 2021-08-06 Mougouris, [facility] 09:09:00 POC GLUCOSE 2021-08-06 Mougouris, Taso [facility] 04:44:00 HEMODIALYSIS 2021-08-06 [facility] 02:34:43 Alexandru Laxmanrao POC GLUCOSE 2021-08-06 Mougouris, Tas[facility] 01:09:00 XR CHEST 1 VW PORTABLE 2021-08-05 [facility] 23:40:00 POC GLUCOSE 2021-08-05 Mougouris, Taso [facility] 21:24:00 OR FL < 1 HOUR 2021[facility]08[facility]05 [facility]00 [place] AN ELECTIVE SUPRAGLOTTIC 2021-08-05 Grazyna Martinez [facility] AIR[facility]AY 20:19:00 Izzy INSERTION, CATHETER, CENTRAL 2021-08-05 Abbie Joanna [facility] VENOUS, TUNNELED, FOR 20:13:00 HEMODIALYSIS TYPE AND SCREEN 2021-08-05 Sincere, [facility] 20:09:00 POC GLUCOSE 2021-08-05 Tas[facility] 15:43:00 ECG 12-LEAD 2021-08-05 [facility], Ti [facility] 14:07:10 POC GLUCOSE 2021-08-05 Armen [facility] 11:25:00 Edwin XR CHEST 1 VW PORTABLE 2021-08-05 [facility], Ti [facility] 11:17:10 CBC WITH PLATELET AND 2021-08-05 [facility] DIFFERENTIAL 10:45:00 Karie BASIC METABOLIC PANEL 2021-08-05 [facility] 10:45:00 Karie ESTIMATED GFR 2021-08-05 R[facility]ali [facility] 10:45:00 Karie POC GLUCOSE 2021-08-05 [facility] 00:57:00 Edwin POC GLUCOSE 2021-08-04 [facility] 16:51:00 Edwin XR ABDOMEN 1 VW 2021-08-04 [facility] 16[facility]40:00 Karie POC GLUCOSE 2021-08-04 [facility] 11:24:00 Donna RATLIFF COMPLETE BLD COUNT W/AUTO DIFF 2021-08-04 Tim [facility] 11:06:00 Donna BASIC METABOLIC PANEL 2021-08-04 [facility] 11:06:00 Alexandru Laxmanrao MAGNESIUM LEVEL 2021-08-04 Nic [facility] true 11:06:00 Karie PHOSPHORUS LEVEL 2021-08-04 [facility] Hosp ital 11:06:00 Karie ESTIMATED GFR 2021-08-04 [facility] 11:06:00 Alexandru Laxmanrao POC GLUCOSE 2021-08-04 [facility] 00:57:00 Donna POC GLUCOSE 2021-08-03 [facility] 21:36:00 Donna HEPATITIS B CORE ANTIBODY TOTAL 2021-08-03 [facility] 17:42:00 Alexandru Das HEPATITIS B SURFACE AB, 2021-08-03 [facility] QUANTITATIVE 17:42:00 Alexandru Das HEPATITIS C ANTIBODY 2021-08-03 [facility] ospital 17:42:00 Alexandru Das HEPATITIS B SURFACE ANTIGEN 2021-08-03 [facility] 17:42:00 Alexandru Das POC GLUCOSE 2021-08-03 [facility] 16:38:00 Donna POC GLUCOSE 2021-08-03 [facility] 11:29:00 Donna HC COMPLETE BLD COUNT W/AUTO DIFF 2021-08-03 [facility] 11:03:00 Karie BASIC METABOLIC PANEL 2021-08-03 [facility] 11:03:00 Karie PHOSPHORUS LEVEL 2021-08-03 [facility] true 11:03:00 Alexandru Das PARATHYROID HORMONE 2021-08-03 José Espino [facility] 11:03:00 Eltin ESTIMATED GFR 2021-08-03 Lucero [facility] true 11:03:00 Karie POC GLUCOSE 2021-08-03 [facility] 00:22:00 Donna CV STRESS TEST NUCLEAR CARDIO 2021-08-02 [facility] 21:45:00 Bahaeddin A. NM MYOCARDIAL PERFUSION REST 2021-08-02 [facility] STRESS 1 DAY 21:45:00 Bahaeddin A. POC GLUCOSE 2021-08-02 [facility] 21:08:00 Donna POC GLUCOSE 2021-08-02 [facility] 16:34:00 Donna POC GLUCOSE 2021-08-02 [facility] 11:19:00 Donna HC COMPLETE BLD COUNT W/AUTO DIFF 2021-08-02 [facility] 09:43:00 Karie BASIC METABOLIC PANEL 2021-08-02 Lucero [facility] 09:43:00 Karie MAGNESIUM LEVEL 2021-08-02 Rupali [facility] 09:43:00 Karie ESTIMATED GFR 2021-08-02 Rupali [facility] 09:43:00 Karie POC GLUCOSE 2021-08-02 Tim, [facility] 00:15:00 Donna POC GLUCOSE 2021-08-01 Tim, [facility] 20:02:00 Donna POC GLUCOSE 2021-08-01 Tim, [facility]my [facility] 16:16:00 Donna POC GLUCOSE 2021-08-01 Tim, [facility] 11:16:00 Donna BASIC METABOLIC PANEL 2021-08-01 [facility] 10:56:00 Theresa [facility] L[facility] Theresa PHOSPHORUS LEVEL [facility]01 [facility] 10:56[facility]00 Theresa HC COMPLETE BLD COUNT W/AUTO DIFF 2021-08-01 Ender Lucero [facility] 10:56:00 Karie ESTIMATED GFR 2021[facility]08[facility]01 [facility]00 Theresa ECG 12-LEAD [facility] Bahaeddin A. POC GLUCOSE 2021-08-01 [facility] 01:35:00 Donna TTE COMPLETE, WO CONTRAST, W 2021-07-31 [id number] 23:38:00 Bahaeddin A. POC GLUCOSE 2021-07-31 [facility] 22:40:00 Donna COVID-19 QUALITATIVE RT-PCR 2021-07-31 Rupali Lucero [facility] 17:14:00 Karie POC GLUCOSE 2021-07-31 [facility] 17:07:00 Donna POC GLUCOSE 2021-07-31 Tim [facility] 12:13:00 Donna B NATRIURETIC PEPTIDE 2021-07-31 Srinivas, [facility] 11:34:00 Eltin BASIC METABOLIC PANEL 2021-07-31 [facility] 11:34:00 Eltin HC COMPLETE BLD COUNT W/AUTO DIFF 2021-07-31 [facility] 11:34:00 Eltin TROPONIN T 2021-07-31 [facility] 11:34:00 Eltin ESTIMATED GFR 2021-07-31 [facility] 11:34:00 Eltin Plan of Care Planned [...] Counseling and Screening (12+)] Future Scheduled 2022-11-04 Screening for [facility] Test 18:43:52 malignant neoplasm of colon (procedure) [code = 779156362] Future Scheduled 2022-11-04 Screening for [facility] Test 18:43:52 malignant neoplasm of colon (procedure) [code = 127271752] Future Scheduled 2022-11-04 [facility] 18:43:52 malignant neoplasm of colon (procedure) [code = 263368523] Future Scheduled 2022-11-04 DIABETIC FOOT EXAM [facility] Test 18:43:52 [code = DIABETIC FOOT EXAM] Future Scheduled 2022-11-04 [facility] 18:43:52 malignant neoplasm of colon (procedure) [code = 771001473] Future Scheduled 2022-11-04 [facility] 18:43:52 malignant neoplasm of colon (procedure) [code = 543645785] Future Scheduled 2022-11-04 DIABETES: [facility]INAL [facility]YE [facility] 18:43:52 EXAM [code = DIABETES: RETINAL EYE EXAM] Future Scheduled 2022-11-04 SHINGLES VACCINES (2 [facility] 18:43:52 of 3) [code = SHINGLES VACCINES (2 of 3)] Future Scheduled 2022-11-04 BREAST CANCER [facility] 18:43:52 SCREENING [code = BREAST CANCER SCREENING] Future Scheduled 2022-11-04 COVID-19 VACCINE (4 - [facility] 18:43:52 Pfizer series) [code = COVID-19 VACCINE (4 - Pfizer series)] Future Scheduled 2022-11-04 INFLUENZA VACCINE [facility] 18:43:52 [code = INFLUENZA VACCINE] Future Scheduled 2022-11-04 SHINGLES VACCINES (2 [facility] 18:43:52 of 3) [code = SHINGLES VACCINES (2 of 3)] Future Scheduled 2022-11-04 [facility]CER [facility] 18:43:52 SCREENING [code = BREAST CANCER SCREENING] Future Scheduled 2022-11-04 COVID-19 VACCINE (4 - [facility] 18:43:52 Pfizer series) [code = COVID-19 VACCINE (4 - Pfizer series)] Future Scheduled 2022-11-04 INFLUENZA VACCINE [facility] 18:43:52 [code = INFLUENZA VACCINE] Future Scheduled 2022-11-04 [facility] 18:43:52 malignant neoplasm of colon (procedure) [code = 395138216] Future Scheduled 2022-11-04 [facility] 18:43:52 malignant neoplasm of colon (procedure) [code = 570357563] Future Scheduled 2022-11-04 Screening for [facility] Test 18:43:52 malignant neoplasm of colon (procedure) [code = 565756248] Future Scheduled 2022-11-04 DIABETIC FOOT EXAM [facility] Test 18:43:52 [code = DIABETIC FOOT EXAM] Future Scheduled 2022-11-04 Screening for [facility] Test 18:43:52 malignant neoplasm of colon (procedure) [code = 983778204] Future Scheduled 2022-11-04 [facility] 18:43:52 malignant neoplasm of colon (procedure) [code = 105996065] Future Scheduled 2022-11-04 DIABETES: RETINAL EYE [facility] Test 18:43:52 EXAM [code = DIABETES: RETINAL EYE EXAM] Future Scheduled 2022-09-27 DIABETIC FOOT EXAM [facility] Test 12:29:06 [code = DIABETIC FOOT EXAM] Future Scheduled 2022-09-27 COLONOSCOPY SCREENING [facility] Test 12:29:06 [code = COLONOSCOPY SCREENING] Future Scheduled 2022-09-27 DIABETES: RETINAL EYE [facility] Test 12:29:06 EXAM [code = DIABETES: RETINAL EYE EXAM] Future Scheduled 2022-09-27 SHINGLES VACCINES (1 Met [facility] Test 12:29:06 of 2) [code = SHINGLES VACCINES (1 of 2)] Future Scheduled 2022-09-27 BREAST CANCER [facility] Test 12:29:06 SCREENING [code = BREAST CANCER SCREENING] Future Scheduled 2022-09-27 COVID-19 VACCINE (4 - Me [facility] Test 12:29:06 Booster for Pfizer series) [code = COVID-19 VACCINE (4 - Booster for Pfizer series)] Future Scheduled 2022-09-27 INFLUENZA VACCINE [facility] 12:29:06 [code = INFLUENZA VACCINE] Future Scheduled 2022-09-27 DIABETIC FOOT EXAM [facility] Test 12:29:06 [code = DIABETIC FOOT EXAM] Future Scheduled 2022-09-27 COLONOSCOPY SCREENING [facility] Test 12:29:06 [code = COLONOSCOPY SCREENING] Future Scheduled 2022-09-27 DIABETES: RETINAL EYE [facility] Test 12:29:06 EXAM [code = DIABETES: RETINAL EYE EXAM] Future Scheduled 2022-09-27 SHINGLES VACCINES (1 Met [facility] Test 12:29:06 of 2) [code = SHINGLES VACCINES (1 of 2)] Future Scheduled 2022-09-27 BREAST CANCER [facility] Test 12:29:06 SCREENING [code = BREAST CANCER SCREENING] Future Scheduled 2022-09-27 COVID-19 VACCINE (4 - Me [facility] Test 12:29:06 Booster for Pfizer series) [code = COVID-19 VACCINE (4 - Booster for Pfizer series)] Future Scheduled 2022-09-27 INFLUENZA VACCINE [facility] Hospital Test 12:29:06 [code = INFLUENZA VACCINE] Future Scheduled 2022-09-27 DIABETIC FOOT EXAM [facility] Test 12:29:06 [code = DIABETIC FOOT EXAM] Future Scheduled 2022-09-27 COLONOSCOPY SCREENING [facility] Test 12:29:06 [code = COLONOSCOPY SCREENING] Future Scheduled 2022-09-27 DIABETES: RETINAL EYE [facility] Test 12:29:06 EXAM [code = DIABETES: RETINAL EYE EXAM] Future Scheduled 2022-09-27 SHINGLES VACCINES (1 Met [facility] Test 12:29:06 of 2) [code = SHINGLES VACCINES (1 of 2)] Future Scheduled 2022-09-27 BREAST CANCER [facility] Test 12:29:06 SCREENING [code = BREAST CANCER SCREENING] Future Scheduled 2022-09-27 COVID-19 VACCINE (4 - Me [facility] Test 12:29:06 Booster for Pfizer series) [code = COVID-19 VACCINE (4 - Booster for Pfizer series)] Future Scheduled 2022-09-27 INFLUENZA VACCINE [facility] Test 12:29:06 [code = INFLUENZA VACCINE] Future Scheduled 2022-08-20 DIABETIC FOOT EXAM [facility] Test 03:10:19 [code = DIABETIC FOOT EXAM] Future Scheduled 2022-08-20 COLONOSCOPY SCREENING [facility] Test 03:10:19 [code = COLONOSCOPY SCREENING] Future Scheduled 2022-08-20 DIABETES: RETINAL EYE [facility] Test 03:10:19 EXAM [code = DIABETES: RETINAL EYE EXAM] Future Scheduled 2022-08-20 SHINGLES VACCINES (1 Met [facility] Hospital Test 03:10:19 of 2) [code = SHINGLES VACCINES (1 of 2)] Future Scheduled 2022-08-20 BREAST CANCER [facility] Test 03:10:19 SCREENING [code = BREAST CANCER SCREENING] Future Scheduled 2022-08-20 COVID-19 VACCINE (4 - Me [facility] Test 03:10:19 Booster for Pfizer series) [code = COVID-19 VACCINE (4 - Booster for Pfizer series)] Future Scheduled 2022-08-20 INFLUENZA VACCINE [facility] Test 03:10:19 [code = INFLUENZA VACCINE] Future Scheduled 2022-07-19 DIABETIC FOOT EXAM [facility] Test 07:26:52 [code = DIABETIC FOOT EXAM] Future Scheduled 2022-07-19 COLONOSCOPY SCREENING [facility] Test 07:26:52 [code = COLONOSCOPY SCREENING] Future Scheduled 2022-07-19 DIABETES: RETINAL EYE [facility] Test 07:26:52 EXAM [code = DIABETES: RETINAL EYE EXAM] Future Scheduled 2022-07-19 SHINGLES VACCINES (1 Met [facility] Test 07:26:52 of 2) [code = SHINGLES VACCINES (1 of 2)] Future Scheduled 2022-07-19 BREAST CANCER [facility] Test 07:26:52 SCREENING [code = BREAST CANCER SCREENING] Future Scheduled 2022-07-19 COVID-19 VACCINE (4 - Me [facility] Test 07:26:52 Booster for Pfizer series) [code = COVID-19 VACCINE (4 - Booster for Pfizer series)] Future Scheduled 2022-07-19 INFLUENZA VACCINE [facility] Test 07:26:52 [code = INFLUENZA [...] EXAM] Future Scheduled 2022-05-17 COLONOSCOPY SCREENING [facility] Test 10:42:08 [code = COLONOSCOPY SCREENING] Future Scheduled 2022-05-17 DIABETES: RETINAL EYE [facility] Test 10:42:08 EXAM [code = DIABETES: RETINAL EYE EXAM] Future Scheduled 2022-05-17 SHINGLES VACCINES (1 Met [facility] Test 10:42:08 of 2) [code = SHINGLES VACCINES (1 of 2)] Future Scheduled 2022-05-17 [facility] 10:42:08 SCREENING [code = BREAST CANCER SCREENING] Future Scheduled 2022-05-17 COVID-19 VACCINE (4 - Me [facility] Test 10:42:08 Booster for Pfizer series) [code [...] Dario ter VACCINE (#1)] Future Scheduled 1948 DXA SCAN [code = DXA [facility] Test 00:00:00 SCAN] [facility] Future [facility]uled [address] [facility] colon (procedure) [code = 098773386] Future Scheduled [address] [facility] colon (procedure) [code = 474515975] Future Scheduled 1948 [facility]igmoidoscopy [facility] Future Scheduled [address] [facility] 00:00:00 malignant neoplasm of [facility] Center breast (procedure) [code = 033801657] Future Scheduled [address] [facility] 00:00:00 (combo) [code = CT Medical C enter Colonography (combo)] Future Scheduled [address] [facility] 00:00:00 [facility]oplasm [facility] colon (procedure) [code = 902114617] Future Scheduled [address] [facility] 00:00:00 malignant [facility]oplasm [facility] Center colon (procedure) [code = 222687755] Future Scheduled 1948 DXA SCAN [code = DXA [facility] Test 00:00:00 SCAN] [facility] Future Scheduled [address] [facility] Test 00:00:00 malignant neoplasm of [facility] Center colon (procedure) [code = 843505614] Future Scheduled [address] [facility] 00:00:00 [facility]oplasm [facility] colon (procedure) [code = 588570503] Future Scheduled 1948 [facility]oidoscopy [facility]] [facility] Future Scheduled [address] [facility] 00:00:00 [facility] breast (procedure) [code = 337156664] Future Scheduled [address] [facility] 00:00:00 (combo) [code = CT Medical C enter Colonography (combo)] Future Scheduled [address] [facility] Test 00:00:00 [facility]oplasm [facility] colon (procedure) [code = 377188839] Future Scheduled [address] [facility] 00:00:00 [facility] colon (procedure) [code = 359317508] Future Scheduled 1948 DXA SCAN [code = DXA [facility] Test 00:00:00 SCAN] [facility] Future Scheduled [address] [facility] 00:00:00 [facility] colon (procedure) [code = 516825073] Future Scheduled [address] [facility] Test 00:00:00 malignant [facility]oplasm of [facility] Center colon (procedure) [code = 855851399] Future Scheduled 1948 [facility]oidoscopy [facility]] [facility] Future Scheduled [address] [facility] 00:00:00 [facility] breast (procedure) [code = 338075883] Future Scheduled [address] [facility] 00:00:00 (combo) [code = CT Medical C enter Colonography (combo)] Future Scheduled [address] [facility] 00:00:00 [facility] colon (procedure) [code = 877017481] Future Scheduled [address] [facility] Test 00:00:00 malignant [facility]oplasm [facility] colon (procedure) [code = 638895401] Future Scheduled 1948 DXA SCAN [code = DXA [facility] Test 00:00:00 SCAN] [facility] Future Scheduled [address] [facility] Test 00:00:00 [facility] Center colon (procedure) [code = 804906158] Future Scheduled [address] [facility] Test 00:00:00 malignant [facility]oplasm [facility] colon (procedure) [code = 950974561] Future Scheduled 1948 [facility]oid[facility] [address] [facility] Test 00:00:00 malignant neoplasm of [facility] Center breast (procedure) [code = 989251573] Future Scheduled [address] [facility] 00:00:00 (combo) [code = CT Medical C enter Colonography (combo)] Future Scheduled [address] [facility] 00[facility]00:00 malignant [facility] colon (procedure) [code = 427663899] Future Scheduled [address] [facility] 00:00:00 malignant [facility]oplasm [facility] colon (procedure) [code = 035097864] Future Scheduled 1948 DXA SCAN [code = DXA [facility] Test 00:00:00 SCAN] [facility] Future Scheduled [address] [facility] Test 00:00:00 malignant [facility]oplasm [facility] Center colon (procedure) [code = 658442988] Future Scheduled [address] [facility] 00:00:00 malignant neoplasm of [facility] Center colon (procedure) [code = 196055480] Future Scheduled 1948 [facility]oidoscopy [facility]] [facility] Future Scheduled [address] [facility] 00:00:00 malignant [facility]oplasm [facility] breast (procedure) [code = 355743379] Future Scheduled [address] [facility] 00:00:00 (combo) [code = CT Medical C enter Colonography (combo)] Future Scheduled [address] [facility] 00:00:00 malignant [facility]oplasm [facility] colon (procedure) [code = 796803929] Future Scheduled [address] [facility] Test 00:00:00 malignant neoplasm of [facility] Center colon (procedure) [code = 297056554] Future Scheduled 1948 DXA SCAN [code = DXA [facility] Test 00:00:00 SCAN] [facility] Future Scheduled [address] [facility] 00:00:00 malignant [facility] Center colon (procedure) [code = 843860320] Future Scheduled [address] [facility] 00:00:00 malignant [facility]oplasm [facility] colon (procedure) [code = 773885513] Future Scheduled 1948 [facility]igmoidoscopy [facility]] [facility] Future Scheduled [address] [facility] 00:00:00 malignant [facility] breast (procedure) [code = 572483418] Future Scheduled [address] [facility] 00:00:00 (combo) [code = CT Medical C enter Colonography (combo)] Future Scheduled [address] [facility] Test 00:00:00 [facility] colon (procedure) [code = 727245765] Future Scheduled [address] [facility] Test 00:00:00 malignant [facility]oplasm [facility] colon (procedure) [code = 891425520] Future Scheduled 1948 DXA SCAN [code = DXA [facility] Test 00:00:00 SCAN] [facility] Future Scheduled [address] [facility] Test 00:00:00 malignant [facility]oplasm [facility] Center colon (procedure) [code = 496293166] Future Scheduled [address] [facility] Test 00:00:00 malignant [facility]oplasm [facility] colon (procedure) [code = 412743794] Future Scheduled 1948 [facility]igmoidoscopy [facility]code [facility] 00:[facility]] [facility] Future Scheduled [address] [facility] 00:00:00 malignant [facility]oplasm [facility] breast (procedure) [code = 945593509] Future Scheduled [address] [facility] 00:00:00 (combo) [code = CT Medical C enter Colonography (combo)] Future Scheduled [address] [facility] Test 00:00:00 [facility] colon (procedure) [code = 545898985] Future Scheduled [address] [facility] Test 00:00:00 [facility] colon (procedure) [code = 345714417] Encounters Start End Encounter Admission Attending Care Care Encounter Source Date/Time Date/Time Type Type Clinicians Facility Department ID 2022-10-09 Outpatient [id number] [facility] RE[facility] [id number] [facility] 14:26:14 [facility] [place] [facility] 2022-10-08 Outpatient 3 [id number] [facility] REF [id number] [facility] 10:03:46 [facility] [place] 2022-06-08 Inpatient SHERRI Fuentes, JEANECL DAYS [id number] [facility] 09:00:00 Greg 07 [facility] 2022-01-05 Inpatient UR [facility] Vascular [id number] [facility] 13:58:43 [facility] 2021-11-04 Outpatient [facility] [id number] [place] 14:10:46 [id number] [facility] 2021-08-11 Outpatient [facility] [id number] [place] 09:26:19 [id number] [facility] 2022-10-10 2022-10-26 Inpatient 3 DONTE PhilippePL CRD [id number] [facility] 17:08:00 11:30:00 Anirudh 0522 [facility] [place] 2022-07-05 2022-07-05 Orders Doctor MACKENZIE 1.2.840.114 [id number] Univers 00:00:00 00:00:00 Only Unassigned, YARELI 350.1.13.10 ity of [place] [facility] 4.2.7.2.686 Kev as [phone] [address] 2022-04-01 2022-04-01 Orders Doctor MACKENZIE 1.2.840.114 [id number] Univers 00:00:00 00:00:00 Only Unassigned, YARELI 350.1.13.10 ity of [place] [facility] 4.2.7.2.686 Kev as [phone] [address] 2022-03-24 2022-03-24 Telephone TABITHA Barillas 1.2.117.546 2037 6389 Univers 00:00:00 00:00:00 [facility] 350.1.13.10 it [facility] 4.2.7.2.686 Kev as MARISA?BLEA [phone] Tx garcía [address] MEDICAL OFFICE BUILDING 2022-03-23 2022-03-23 Telephone Eran [facility] 1.2.933.810 1012 8518 Univers 00:00:00 00:00:00 Luc S HEALTH 350.1.13.10 it y of [place] 4.2.7.2.686 Kev as MARISA?BLEA [phone] Tx garcía LOVE 198 [facility] OFFICE [facility] 2022-03-18 2022-03-18 Telephone [facility] 1.2.840.114 [id number] Univers 00:00:00 00:00:00 Alannah L HEALTH 350.1.13.10 it y of [place] 4.2.7.2.686 Kev as MARISA?BLEA [phone] Tx garcía LOVE 198 [facility] OFFICE [facility] 2022-03-16 2022-03-16 Telephone Jud [facility] 1.2.840.114 [id number] Univers 00:00:00 00:00:00 Alannah L SPECIALTY 350.1.13.10 ity of [place]2.[place] [phone] [place] garcía [place] [address] [place] [address] 2022-01-07 2022-01-18 Hospital NIDHI Annalee Bey Jan [facility] [id number] [facility] St 17:48:00 16:48:00 Encounter Mauro Mendo[facility] 2022-01-07 2022-01-18 Inpatient UR MICAHDANIEL [facility] Surgery [id number] [facility] 17:48:00 16:48:00 ANNALEE 2022-01-07 2022-01-07 [facility] [id number] 00[facility]00 [facility] 2022-01-02 2022-01-02 Outpatient R [facility] NUT [id number] Univers 00:00:00 00:00:00 ALANNAH durand [facility] 2021-09-06 2021-09-16 [facility] Trinidad Menard 1.2.840.1 10 [id number] Methodi 14:46:00 18:55:00 Encounter Corrine Osuna 56554.1.[address] 3.430.2.7 Hospit a .3.657353 l .8 2021-09-13 2021-09-13 Anesthesia Zaynabnarayan, 1.2.840.1 [id number] Methodi 14:58:00 15:19:00 Event Edwin 58934.1.[address] Alannah 3.430.2.7 Hospit a .3.728840 l .8 2021-09-13 2021-09-13 Surgery John, 1.2.840.1 [id number] 86425 Methodi 14:22:00 14:27:[address] Marthai 3.430.2.7 Hospit a .3.586235 l .8 2021-09-06 2021-09-06 Travel 1.2.840.1 1.2.673.629 1855 [id number] Methodi 00:00:00 00:00:[address] 3.430.2.7 0.2.7.3.698 Ho spita .3.242054 084.8 l .8 2021-07-31 2021-08-13 Hospital Tammy Dumont 1.2.840.1 1045 [id number] [id number] Methodi 04:12:00 19:46:00 Encounter Edwin Ayers 45780.1.[address] Tasneem Ellison 3.430.2.7 Hospita Annalee Nuñez .3.254571 l .8 2021-08-12 2021-08-12 Anesthesia Leodan Rebolledo 1.2.840.1 [id number] Methodi 18:09:00 19:38:[address] 3.430.2.7 Hospit a .3.394057 l .8 2021-08-12 2021-08-12 Surgery Ru, 1.2.840.1 [id number] 8546 Methodi 17:35:00 18:50:[address] 3.430.2.7 Hospit a .3.354587 l .8 2021-08-05 2021-08-05 Anesthesia RamonAndre 1.2.840.1 [id number] Methodi 15:12:00 16:16:00 Event Grazyna Martinez 77302.1.[address] 3.430.2.7 Hospit a .3.741694 l .8 2021-08-05 2021-08-05 Surgery Leiva, 1.2.840.1 [id number] 0599 Methodi 15:20:00 16:05:[address] 3.430.2.7 Hospit a .3.873274 l .8 2021-08-02 2021-08-02 Documentat Provider, 1.2.840.1 [id number] 2 [id number] Methodi 00:00:00 00:00:00 ion Unknown 27317.1.[address] 3.430.2.7 Hospit a .3.187789 l .8 2021-07-14 2021-07-14 Transcribe Vanda 1.2.840.1 [id number] Methodi 00:00:00 00:00:00 Orders , Zulema 31397.1.[address] 3.430.2.7 Hospit a .3.201428 l .8 2021-06-10 2021-06-10 Clinical 1.2.840.1 [id number] 75043 Methodi 15:45:00 15:58:[address] 3.430.2.7 Hospit a .3.972804 l .8 2021-06-10 2021-06-10 Travel 1.2.840.1 1.2.368.825 2890 662178 Methodi 00:00:00 00:00:[address] 3.430.2.7 0.2.7.3.698 Ho spita .3.332156 084.8 l .8 2021-06-09 2021-06-09 Outpatient Sudheer_Escobar [facility] [id number] [facility] 11:40:00 11:40:00 [id number] Family Practic e 2021-06-01 2021-06-04 Outpatient AL-LAHIQ, [facility] 064 [id number] Ivel 00:00:00 00:00:00 MAHA [address] 2020-08-05 2020-08-05 Outpatient VANDA [facility] [id number] Ivel 00:00:00 00:00:00 , ZULEMA [address] 2020-07-09 2020-07-09 Outpatient [facility] [id number] Ivel 00:00:00 00:00:[address] 2020-06-18 2020-06-18 Outpatient [facility] [id number] Ivel 00:00:00 00:00:[address] 2020-04-05 2020-04-06 Outpatient AL-LAHIQ, [place] [address] 27546 95342 Ivel 00:00:00 00:00:00 MAHA [address] 2020-03-22 2020-03-25 Inpatient AL-LAHIQ, [facility] [id number] Ivel 00:00:00 00:00:00 MAHA [address] 2020-02-27 2020-02-27 Outpatient HIGUERA, [facility] [id number] 9074 Ivel 00:00:00 00:00:00 DAVID [address] 2020-02-17 2020-02-18 Outpatient AL-LAHIQ, [facility] 18928 60904 Ivel 00:00:00 00:00:00 MAHA [address] 2020-01-17 2020-01-18 Emergency JOSE A, [facility] [id number] Ivel 00:00:00 00:00:00 SHAKEEL [address] 2019-10-23 2019-10-26 Inpatient AL-LAHIQ, [facility] 064 [id number] 7406 Ivel 00:00:00 00:00:00 MAHA [address] 2019-08-05 2019-08-05 Outpatient VANDA [facility] 325 [id number] Ivel 00:00:00 00:00:00 , ZULEMA [address] 2019-07-10 2019-07-12 Inpatient AL-LAHIQ, [facility] [id number] Ivel 00:00:00 00:00:00 MAHA [address] 2019-03-27 2019-03-30 Outpatient BOAZ [facility] 2100 [id number] Ivel 00:00:00 00:00:00 SARAIQuintin Yeh [facility] Results Test Description Test Time Test Comments Results Result Comments Source POC-Glucose meter 2022-01-18 12:22:13 Test Item Value Reference Range Interpretation Comme nts POC-Glucose Meter (test code = 102 mg/dL 70-110 : TESTED AT [facility] [facility] 1538) [place] [address]: Scallop Cutter Machine/Techni faviola ID = [id number] for Yelling, Yoland a Lab Interpretation (test code = Normal 97071-4) [facility] [id number] 12:22:13 Test Item Value Reference Range Interpretation Comments POC-Glucose Meter (test 102 mg/dL 70-110 : TE STED AT [facility] code = 1538) [address] [place], [place] [address]: Scallop Cutter Machine/Techni faviola ID = [id number] for Yelling, Yoland a Lab Interpretation (test Normal code = 98614-2) [facility] [id number] 12:22:13 Test Item Value Reference Range Interpretation Comments POC-Glucose Meter (test 102 mg/dL 70-110 : TE STED AT [facility] code = 1538) [address] [place] [address]: Scallop Cutter Machine/Techni faviola ID = [id number] for Yelling, Yoland a Lab Interpretation (test Normal code = 58158-9) [facility] [id number] 12:22:13 Test Item Value Reference Range Interpretation Comments POC-Glucose Meter (test 102 mg/dL 70-110 : TE STED AT [facility] code = 1538) [address] [place], [place] [address]: Scallop Cutter Machine/Techni faviola ID = [id number] for Yelling, Yoland a Lab Interpretation (test Normal code = 86428-0) [facility] [id number] 12:22:13 Test Item Value Reference Range Interpretation Comments POC-Glucose Meter (test 102 mg/dL 70-110 : TE STED AT [facility] code = 1538) 1317 [facility] [address]: Scallop Cutter Machine/Techni faviola ID = [id number] for Yelling, Yoland a Lab Interpretation (test Normal code = 53831-3) [facility]-Glucose [id number] 12:22:13 Test Item Value Reference Range Interpretation Comments POC-Glucose Meter (test 102 mg/dL 70-110 : TE STED AT [facility] code = 1538) [address] [place] [address]838: Scallop Cutter Machine/Techni faviola ID = [id number] for Yelling, Yoland a Lab Interpretation (test Normal code = 92901-2) [facility]-Glucose [id number] 12:22:13 Test Item Value Reference Range Interpretation Comments POC-Glucose Meter (test 102 mg/dL 70-110 : TE STED AT [facility] code = 1538) [address] [place] [address]838: Scallop Cutter Machine/Techni faviola ID = [id number] for Yelling, Yoland a Lab Interpretation (test Normal code = 06167-1) [facility]-GLUCOSE [id number] 12:22:13 Test Item Value Reference Range Interpretation Comments POC-GLUCOSE METER 102 mg/dL 70-110 : TESTED A T [facility] 1317 (BEAKER) (test code [facility], = 1538) [facility] 77 8: Scallop Cutter Machine/Techni faviola ID = [id number] for Burnett ing, Zuri BASIC METABOLIC [id number] 06:40:34 Test Item Value Reference Range Interpretation [...] H (BEAKER) (test code = 652) CALCIUM (TONEY) 8.8 mg/dL 8.5-10.5 (test code = 697) EGFR (TONEY) 10 Interpretatio n of eGFR (test code [...] not appl icable for dialysis patien ts Scallop Cutter Machine ID - [id number] ID - [id number] ID - RSFRMLVDQ083Dapocjin ID - UEDFMWBBA535Dxxfferm ID - YJMZRVYJR305Mwfmhjrd ID - XZNXQQSBS037Bqdvodkp ID - VGBZNGQUZ434Aayauhjh ID - DEFADYXYG994Ronaiaiv ID - SWZIGPZSC284Nbmbovga ID - JZTFPDVDV656Sueyrxxv ID - WZXHXYEBK041Dmefbsso ID - WTCKEIPYA391Nuwaoobf ID - OAXQNZRMZ743IEVS-SHJWPBF SGQLS4527-95-05 19:58:07 Test Item Value Reference Range Interpretation Comments POC-GLUCOSE METER 126 mg/dL 70-110 H : TESTED A T [facility] 1317 ([facility] (test code [facility], = 1538) [facility] 77 478: Scallop Cutter Machine/Techni faviola ID = [id number] for Ina Agrawal POCT-GLUCOSE [id number] 17:18:36 Test Item Value Reference Range Interpretation Comments POC-GLUCOSE METER 128 mg/dL 70-110 H : Notified RN/MD: TESTED ([facility] (test code AT [facility] [address] = 1538) [facility] [address]: Scallop Cutter Machine/Techni faviola ID = [id number] for Maninder figueroa Chenchoovidio POCT-GLUCOSE [id number] 12:27:16 Test Item Value Reference Range Interpretation Comments POC-GLUCOSE METER 141 mg/dL 70-110 H : TESTED A T [facility] [address] (BEAKER) (test code [address], = 1538) [facility] 77 478: Scallop Cutter Machine/Techni faviola ID = [id number] for Sunita Alaniz POCT-GLUCOSE [id number] 08:42:44 Test Item Value Reference Range Interpretation Comments POC-GLUCOSE METER 152 mg/dL 70-110 H : Notified RN/MD: TESTED (BEAKER) (test code AT [facility] [address] = 1538) PKWY, [facility] [address]: Scallop Cutter Machine/Techni faviola ID = [id number] for Sunita Alaniz BASIC METABOLIC [id number] 05:53:56 Test Item Value Reference Range Interpretation [...] not appl icable for dialysis patien ts Scallop Cutter Machine ID - [id number] ID - CLZETZFMH527Sevwihnm ID - UMSXOMEJU220Fywcelxa ID - PGJJDTSTS959Wzqasgfb ID - YMMJVZHTH425Iwouuxpr ID - BUVTMQLQT833Cjwbfhxd ID - EJNZILNNZ597Zlvuoyyr ID - ZMXZSOATW740Bmsnynms ID - NYDBJIUCQ830Nqpkhmds ID - ZIJICJZQN267Bzukuhex ID - GXYCQBZTD261Wospqfmj ID - TVTKZVWVN924Bxfowyoi ID - [id number]-EMHECZW [id number] 20:28:58 Test Item Value Reference Range Interpretation Comments POC-GLUCOSE METER 184 mg/dL 70-110 H : TESTED A T [facility] [address] (BEAKER) (test code [address], = 1538) [place] [address]: Scallop Cutter Machine/Techni faviola ID = [id number] for Ina Agrawal POCT-GLUCOSE [id number] 15:57:54 Test Item Value Reference Range Interpretation Comments POC-GLUCOSE METER 187 mg/dL 70-110 H : TESTED A T [facility] [address] (BEAKER) (test code [address], = 1538) [place] [address]: Scallop Cutter Machine/Techni faviola ID = [id number] for Aileen Loja POCT-GLUCOSE [id number] 11:57:54 Test Item Value Reference Range Interpretation Comments POC-GLUCOSE METER 163 mg/dL 70-110 H : TESTED A T [facility] [address]17 (BEAKER) (test code [address], = 1538) [place] [address]: Scallop Cutter Machine/Techni faviola ID = [id number] for Aileen Loja POCT-GLUCOSE [id number] 07:59:00 Test Item Value Reference Range Interpretation Comments POC-GLUCOSE METER 129 mg/dL 70-110 H : TESTED A T [facility] [address] (BEAKER) (test code [address], = 1538) [place] [address]: Scallop Cutter Machine/Techni faviola ID = [id number] for Ej vergara, Aileen POCT-GLUCOSE [id number] 20:24:24 Test Item Value Reference Range Interpretation Comments POC-GLUCOSE METER 185 mg/dL 70-110 H : TESTED A T [facility] [address] (BEAKER) (test code [address], = 1538) [place] [address]: Scallop Cutter Machine/Techni faviola ID = [id number] for Agustin Patel POCT-GLUCOSE [id number] 18:05:34 Test Item Value Reference Range Interpretation Comments POC-GLUCOSE METER 126 mg/dL 70-110 H : TESTED A T [facility] [address] (BEAKER) (test code [address], = 1538) [place] [address]: Scallop Cutter Machine/Techni faviola ID = [id number] for Consuelo Leija POCT-GLUCOSE [id number] 12:43:19 Test Item Value Reference Range Interpretation Comments POC-GLUCOSE METER 154 mg/dL 70-110 H : TESTED A T [facility] [address]17 (BEAKER) (test code [address], = 1538) [place] [address]: Scallop Cutter Machine/Techni faviola ID = [id number] for Consuelo Leija POCT-GLUCOSE [id number] 07:44:17 Test Item Value Reference Range Interpretation Comments POC-GLUCOSE METER 142 mg/dL 70-110 H : TESTED A T [facility] [address]17 (BEAKER) (test code [address], = 1538) [place] [address]: Scallop Cutter Machine/Techni faviola ID = [id number] for Consuelo Leija BASIC METABOLIC [id number] 05:55:22 Test Item Value Reference Range Interpretation [...] not appl icable for dialysis patien ts Scallop Cutter Machine ID - LITOOperator ID - LITOOperator ID - LITOOperator ID - LITOOperator ID - LITOOperator ID - LITOOperator ID - LITOOperator ID - LITOOperator ID - LITOOperator ID - LITOOperator ID - LITOOperator ID - LITOOperator ID - MARTÍN POCT-GLUCOSE [id number] 20:53:58 Test Item Value Reference Range Interpretation Comments POC-GLUCOSE METER 194 mg/dL 70-110 H : TESTED A T [facility] [address]17 (BEAKER) (test code [address], = 1538) [place] [address]: Scallop Cutter Machine/Techni faviola ID = [id number] for Aileen Loja POCT-GLUCOSE [id number] 15:49:19 Test Item Value Reference Range Interpretation Comments POC-GLUCOSE METER 171 mg/dL 70-110 H : TESTED A T [facility] [address] (BEAKER) (test code [address], = 1538) [place] [address]: Scallop Cutter Machine/Techni faviola ID = [id number] for Aileen Loja SARS-CoV2/RT-PCR (Asymptomatic ONLY)2022-01-14 15:42:35 Test Item Value Reference Interpretation Comments Range SARS-COV2/RT-PCR Negative Negative The SARS-Co V-2 (test code = target nucleic 23746-3) acids are not detected in thi s [...] revoked sooner. Fact Sheet for Healthcare Providers: https://www.[employer]/Documents/Xp ert%20Xpress%20SAR S%20CoV-2/Fact%20S heets/302-3802%20S ARS-COV-2%20HEALTH CARE%20PROVIDERS%2 0FACT%20SHEET.pdf Fact Sheet for Healthcare Patients: https://www.[employer]/Documents/Xp ert%20Xpress%20SAR S%20CoV-2/Fact%20S heets/302-3801%20S ARS-COV-2%20PATIEN T%20FACT%20SHEET.p df Lab Interpretation Normal (test code = 16668-6) [facility]2022-01-14 15:42:35 Test Item Value Reference Interpretation Comments Range SARS-COV2/RT-PCR Negative Negative The SARS-Co V-2 (test code = target nucleic 70003-1) acids are not detected in thi s [...] revoked sooner. Fact Sheet for Healthcare Providers: https://www.[employer]/Documents/Xp ert%20Xpress%20SAR S%20CoV-2/Fact%20S heets/302-3802%20S ARS-COV-2%20HEALTH CARE%20PROVIDERS%2 0FACT%20SHEET.pdf Fact Sheet for Healthcare Patients: https://www.[employer]/Documents/Xp ert%20Xpress%20SAR S%20CoV-2/Fact%20S heets/302-3801%20S ARS-COV-2%20PATIEN T%20FACT%20SHEET.p df Lab Interpretation Normal (test code = 15616-3) [facility]Asymptomatic ONLY)2022-01-14 15:42:35 Test Item Value Reference Interpretation Comments Range SARS-COV2/RT-PCR Negative Negative The SARS-Co V-2 (test code = target nucleic 21154-0) acids are not detected in thi s [...] revoked sooner. Fact Sheet for Healthcare Providers: https://www.[employer]/Documents/Xp ert%20Xpress%20SAR S%20CoV-2/Fact%20S heets/302-3802%20S ARS-COV-2%20HEALTH CARE%20PROVIDERS%2 0FACT%20SHEET.pdf Fact Sheet for Healthcare Patients: https://www[employer]/Documents/Xp ert%20Xpress%20SAR S%20CoV-2/Fact%20S heets/302-3801%20S ARS-COV-2%20PATIEN T%20FACT%20SHEET.p df Lab Interpretation Normal (test code = 66985-0) [facility]As[facility]omatic ONLY)2022-01-14 15:42:35 Test Item Value Reference Interpretation Comments Range SARS-COV2/RT-PCR Negative Negative The SARS-Co V-2 (test code = target nucleic 24777-4) acids are not detected in thi s [...] revoked sooner. Fact Sheet for Healthcare Providers: https://www.[employer]/Documents/Xp ert%20Xpress%20SAR S%20CoV-2/Fact%20S heets/302-3802%20S ARS-COV-2%20HEALTH CARE%20PROVIDERS%2 0FACT%20SHEET.pdf Fact Sheet for Healthcare Patients: https://www[employer]/Documents/Xp ert%20Xpress%20SAR S%20CoV-2/Fact%20S heets/302-3801%20S ARS-COV-2%20PATIEN T%20FACT%20SHEET.p df Lab Interpretation Normal (test code = 71327-3) [facility] (As[facility]omatic ONLY)2022-01-14 15:42:35 Test Item Value Reference Interpretation Comments Range SARS-COV2/RT-PCR Negative Negative The SARS-Co V-2 (test code = target nucleic 59381-9) acids are not detected in thi s [...] revoked sooner. Fact Sheet for Healthcare Providers: https://www.[employer]/Documents/Xp ert%20Xpress%20SAR S%20CoV-2/Fact%20S heets/302-3802%20S ARS-COV-2%20HEALTH CARE%20PROVIDERS%2 0FACT%20SHEET.pdf Fact Sheet for Healthcare Patients: https://www.[employer]/Documents/Xp ert%20Xpress%20SAR S%20CoV-2/Fact%20S heets/302-3801%20S ARS-COV-2%20PATIEN T%20FACT%20SHEET.p df Lab Interpretation Normal (test code = 48728-8) [facility] (Asymptomatic ONLY)2022-01-14 15:42:35 Test Item Value Reference Interpretation Comments Range SARS-COV2/RT-PCR Negative Negative The SARS-Co V-2 (test code = target nucleic 34023-6) acids are not detected in thi s [...] revoked sooner. Fact Sheet for Healthcare Providers: https://www.[employer]/Documents/Xp ert%20Xpress%20SAR S%20CoV-2/Fact%20S heets/302-3802%20S ARS-COV-2%20HEALTH CARE%20PROVIDERS%2 0FACT%20SHEET.pdf Fact Sheet for Healthcare Patients: https://www.[employer]/Documents/Xp ert%20Xpress%20SAR S%20CoV-2/Fact%20S heets/302-3801%20S ARS-COV-2%20PATIEN T%20FACT%20SHEET.p df Lab Interpretation Normal (test code = 96807-3) [facility]Asymptomatic ONLY)2022-01-14 15:42:35 Test Item Value Reference Interpretation Comments Range SARS-COV2/RT-PCR Negative Negative The SARS-Co V-2 (test code = target nucleic 64450-2) acids are not detected in thi s [...] revoked sooner. Fact Sheet for Healthcare Providers: https://www.[employer]/Documents/Xp ert%20Xpress%20SAR S%20CoV-2/Fact%20S heets/302-3802%20S ARS-COV-2%20HEALTH CARE%20PROVIDERS%2 0FACT%20SHEET.pdf Fact Sheet for Healthcare Patients: https://www.[employer]/Documents/Xp ert%20Xpress%20SAR S%20CoV-2/Fact%20S heets/302-3801%20S ARS-COV-2%20PATIEN T%20FACT%20SHEET.p df Lab Interpretation Normal (test code = 64941-0) [facility])2022-01-14 15:42:35 Test Item Value Reference Range Interpretation Comments SARS-COV2/RT-PCR Negative Negative The SARS-Co V-2 target (test code = nucleic acids a re not 7828350) detected in thi s specimen. Negative result [...] revoked sooner. Fact Sheet for Healthcare Providers: https://www.[employer]/Documents/Xpert%20Xpress%20SARS%20CoV-2/Fact%20Sheets/302-3802%63TKZJ-BGK-7%20 HEALTHCARE%20PROVIDERS%20FACT%20SHEET.pdf Fact Sheet for Healthcare Patients: https://www.[employer]/Documents/Xpert%20Xp ress%20SARS%20CoV-2/Fact%20Sheets/302-3801%86KATR-OQV-5%20PATIENT%20FACT%20SHEET .pdfRAD, CHEST, 1 VIEW, NON [id number] 15:02:00Reason for exam:- >SOBShould this be performed at the bedside?->Yes [facility] : 1950 Sex: [...] MDReport Verified Date/Time: 01/14/2022 15:02:16 Reading Location: [facility] Radiology Reading Room POCT-GLUCOSE [id number] 12:14:41 Test Item Value Reference Range Interpretation Comments POC-GLUCOSE METER 134 mg/dL 70-110 H : TESTED A T [facility] 1317 (BETG) (test code [address], = 1538) [facility] 77 478: Scallop Cutter Machine/Techni faviola ID = [id number] for Aileen Loja, CENTRAL VENOUS CATH PLCAK (JUG/FEM) > 3 Y.O. WITH [id number] 11:25:00Reason for exam:->Non tunneled central line placement [facility] : 1950 Sex: [...] MDReport Verified Date/Time: 01/14/2022 11:25:42 Reading Location: [facility] Radiology Reading Room POCT-GLUCOSE [id number] 08:34:59 Test Item Value Reference Range Interpretation Comments POC-GLUCOSE METER 147 mg/dL 70-110 H : TESTED A T [facility] 1317 (BEAKER) (test code [address], = 1538) [facility] [place] [address]: Scallop Cutter Machine/Techni faviola ID = [id number] for Aileen Loja BASIC METABOLIC [id number] 06:37:03 Test Item Value Reference Range Interpretation [...] not appl icable for dialysis patien ts Scallop Cutter Machine ID - LITOOperator ID - LITOOperator ID [...] 0-0 (BEAKER) (test code = 413) POCT-GLUCOSE [id number] 19:50:36 Test Item Value Reference Range Interpretation Comments POC-GLUCOSE METER 199 mg/dL 70-110 H : TESTED A T [facility] 1317 (BEAKER) (test code [address], = 1538) [place] [id number]: Scallop Cutter Machine/Techni faviola ID = [id number] for Ina Agrawal POCT-GLUCOSE [id number] 16:52:12 Test Item Value Reference Range Interpretation Comments POC-GLUCOSE METER 150 mg/dL 70-110 H : TESTED A T [facility] [address]17 (BEAKER) (test code [address], = 1538) [place] [id number]: Scallop Cutter Machine/Techni faviola ID = [id number] for Aileen Loja POCT-GLUCOSE [id number] 14:05:10 Test Item Value Reference Range Interpretation Comments POC-GLUCOSE METER 122 mg/dL 70-110 H : TESTED A T [facility] 1317 (BEAKER) (test code [address], = 1538) [facility] 77 [address]: Scallop Cutter Machine/Techni faviola ID = [id number] for Nancy Douglass Blood gas, [id number] 09:06:33 Test Item Value Reference Range Interpretation Comments pH, Arterial (test code 7.45 7.35-7.45 = 2744-1) pCO2, Arterial (test 40 See_Comment [Autom ated message] code = 2018-12) The system GetYou generated this result transmit kenneth reference range : 35 - 45 mm Hg. The reference range was not used to interpret this result as normal/abnormal . pO2, Arterial (test 79 See_Comment L [Automa kenneth message] code = 2703-7) The system GetYou generated this result transmit kenneth reference range [...] 21 Lab Interpretation Abnormal (test code = 40357-8) [facility] [id number] 09:06:33 Test Item Value Reference Range Interpretation Comments pH, Arterial (test code 7.45 7.35-7.45 = 2744-1) pCO2, Arterial (test 40 See_Comment [Autom ated message] code = 2018-12) The system GetYou generated this result transmit kenneth reference range : 35 - 45 mm Hg. The reference range was not used to interpret this result as normal/abnormal . pO2, Arterial (test 79 See_Comment L [Automa kenneth message] code = 2703-7) The system GetYou generated this result transmit kenneth reference range [...] 21 Lab Interpretation Abnormal (test code = 62746-6) [facility], [id number] 09:06:33 Test Item Value Reference Range Interpretation Comments pH, Arterial (test code 7.45 7.35-7.45 = 2744-1) pCO2, Arterial (test 40 See_Comment [Autom ated message] code = 2018-12) The system GetYou generated this result transmit kenneth reference range : 35 - 45 mm Hg. The reference range was not used to interpret this result as normal/abnormal . pO2, Arterial (test 79 See_Comment L [Automa kenneth message] code = 2703-7) The system GetYou generated this result transmit kenneth reference range [...] 21 Lab Interpretation Abnormal (test code = 96421-2) [facility] [id number] 09:06:33 Test Item Value Reference Range Interpretation Comments pH, Arterial (test code 7.45 7.35-7.45 = 2744-1) pCO2, Arterial (test 40 See_Comment [Autom ated message] code = 2019-) The system GetYou generated this result transmit kenneth reference range : 35 - 45 mm Hg. The reference range was not used to interpret this result as normal/abnormal . pO2, Arterial (test 79 See_Comment L [Automa kenneth message] code = 2703-7) The system GetYou generated this result transmit kenneth reference range [...] 21 Lab Interpretation Abnormal (test code = 87649-3) [facility] [id number] 09:06:33 Test Item Value Reference Range Interpretation Comments pH, Arterial (test code 7.45 7.35-7.45 = 2744-1) pCO2, Arterial (test 40 See_Comment [Autom ated message] code = 2018-12) The system GetYou generated this result transmit kenneth reference range : 35 - 45 mm Hg. The reference range was not used to interpret this result as normal/abnormal . pO2, Arterial (test 79 See_Comment L [Automa kenneth message] code = 2703-7) The system GetYou generated this result transmit kenneth reference range [...] 21 Lab Interpretation Abnormal (test code = 27608-5) [facility] [id number] 09:06:33 Test Item Value Reference Range Interpretation Comments pH, Arterial (test code 7.45 7.35-7.45 = 2744-1) pCO2, Arterial (test 40 See_Comment [Autom ated message] code = 2018-12) The system GetYou generated this result transmit kenneth reference range : 35 - 45 mm Hg. The reference range was not used to interpret this result as normal/abnormal . pO2, Arterial (test 79 See_Comment L [Automa kenneth message] code = 2703-7) The system GetYou generated this result transmit kenneth reference range [...] 21 Lab Interpretation Abnormal (test code = 76182-9) [facility], [id number] 09:06:33 Test Item Value Reference Range Interpretation Comments pH, Arterial (test code 7.45 7.35-7.45 = 2744-1) pCO2, Arterial (test 40 See_Comment [Autom ated message] code = 2019-8) The system GetYou generated this result transmit kenneth reference range : 35 - 45 mm Hg. The reference range was not used to interpret this result as normal/abnormal . pO2, Arterial (test 79 See_Comment L [Automa kenneth message] code = 2703-7) The system GetYou generated this result transmit kenneth reference range [...] 21 Lab Interpretation Abnormal (test code = 61361-1) [facility], [id number] 09:06:33 Test Item Value Reference Range Interpretation [...] (BEAKER) (test code = 1819) 21.0 POCT-GLUCOSE [id number] 08:36:44 Test Item Value Reference Range Interpretation Comments POC-GLUCOSE METER 132 mg/dL 70-110 H : TESTED A T SLSL 1317 (BEAKER) (test code [address], = 1538) [facility] 77 478: Scallop Cutter Machine/Techni faviola ID = [id number] for Aileen Loja TSH/FREE T4 IF [id number] 08:14:31 Test Item Value Reference Range Interpretation Comments THYROID STIMULATING HORMONE 1.790 uIU/mL 0.350-5.500 (BEAKER) (test code = 772) Scallop Cutter Machine ID - DSENSONCOMPREHENSIVE METABOLIC [id number] 08:04:08 Test Item Value Reference Range Interpretation [...] not appl icable for dialysis patien ts Scallop Cutter Machine ID - DSENSONOperator ID - DSENSONOperator ID - DSENSONOperator ID - DSENSONOperator ID - DSENSONOperator ID - DSENSONOperator ID - DSENSONOperator ID - DSENSONOperator ID - DSENSONOperator ID - DSENSONOperator ID - DSENSONOperator ID - DSENSONOperator ID - DSENSONOperator ID - DSENSONOperatorID - DSENSONOperator ID - DSENSONOperator ID - DSENSONOperator ID - DSENSONOperator ID - DSENSONTROPONIN [id number] 08:03:10 Test Item Value Reference Range Interpretation [...] failure, acidosis, acute neurological disease, and persistent tachyarrhythmia.Scallop Cutter Machine ID - DSENSONCT, BRAIN, WITHOUT [id number] 07:49:00 [facility] : 1950 Sex: [...] 01/13/2022 07:49:20 CBC W/PLT COUNT & AUTO [id number] 07:39:37 Test Item Value Reference Range Interpretation [...] PERCENT (BEAKER) (test code = 2801) POCT-GLUCOSE [id number] 07:15:45 Test Item Value Reference Range Interpretation Comments POC-GLUCOSE METER 127 mg/dL 70-110 H : TESTED A T [address] (BEAKER) (test code [facility], = 1538) [place] [address] 478: Scallop Cutter Machine/Techni faviola ID = [id number] for Aileen Loja POCT-GLUCOSE [id number] 06:32:48 Test Item Value Reference Range Interpretation Comments POC-GLUCOSE METER 133 mg/dL 70-110 H : TESTED A T [address] (BEAKER) (test code [facility], = 1538) [place] [address] 478: Scallop Cutter Machine/Techni faviola ID = [id number] for Mekhi bi, Libia POCT-GLUCOSE [id number] 21:05:05 Test Item Value Reference Range Interpretation Comments POC-GLUCOSE METER 195 mg/dL 70-110 H : TESTED A T [address] (BEAKER) [facility] = [facility] [place] [address]: Scallop Cutter Machine/Techni faviola ID = [id number] for Mekhi bi, Libia POCT-GLUCOSE [id number] 19:32:35 Test Item Value Reference Range Interpretation Comments POC-GLUCOSE METER 180 mg/dL 70-110 H : TESTED A T [address] (BEAKER) (test code [facility], = 1538) [place] [address] 478: Scallop Cutter Machine/Techni faviola ID = [id number] for Streeter ins, Odalys POCT-GLUCOSE [id number] 19:30:16 Test Item Value Reference Range Interpretation Comments POC-GLUCOSE METER 50 mg/dL 70-110 L : TESTED A T [address] (BEAKER) (test code = [address], 1538) [place] [address] 478: Scallop Cutter Machine/Techni faviola ID = [id number] for Streeter ins, Odalys POCT-GLUCOSE [id number] 18:09:32 Test Item Value Reference Range Interpretation Comments POC-GLUCOSE METER 63 mg/dL 70-110 L : TESTED A T [address] (BEAKER) (test code = [address], 1538) [place] [address] 478: Scallop Cutter Machine/Techni faviola ID = [id number] for Will iams, Robe ANG, TUNNELED CATHETER [id number] 17:04:00Reason for exam:->dialysis catheter with poor flows on dialysis, very positional - please place tunneled dialysis catheter in a new position. [facility] : 1950 Sex: FFINAL REPORT Tunneled dialysis catheter exchange, 01/12/2022. History: Renal failure, poor flow through the existing catheter. Modality: Sonography and fluoroscopy. Sedation: None. Camera Mechanic: Mitzy. Packer Inspector: None. Approach: Internal jugular vein - right. [...] removed and a new 23 cm 15.5 [place] Duraflow 2 catheter was advanced through the [...] MDReport Verified Date/Time: 01/12/2022 17:04:33 Reading Location: [facility] Reading Room POCT-GLUCOSE [id number] 12:20:13 Test Item Value Reference Range Interpretation Comments POC-GLUCOSE METER 107 mg/dL 70-110 : TESTED A T [address] (BEAKER) (test code [address], = 1538) [place] [address] 478: Scallop Cutter Machine/Techni faviola ID = [id number] for Will iams, Robe POCT-GLUCOSE [id number] 09:01:23 Test Item Value Reference Range Interpretation Comments POC-GLUCOSE METER 118 mg/dL 70-110 H : TESTED A T [address] (BEAKER) (test code [address], = 1538) [place] [address]: Scallop Cutter Machine/Techni faviola ID = [id number] for Will iams, Robe CBC W/PLT COUNT & AUTO [id number] 06:58:41 Test Item Value Reference Range Interpretation [...] code = 1+ few 961) BASIC METABOLIC [id number] 06:30:57 Test Item Value Reference Range Interpretation [...] not appl icable for dialysis patien ts Scallop Cutter Machine ID - LITOOperator ID - LITOOperator ID - LITOOperator ID - LITOOperator ID - LITOOperator ID - LITOOperator ID - LITOOperator ID - LITOOperator ID - LITOOperator ID - [id number] 06:19:11 Test Item Value Reference Range Interpretation Comments MAGNESIUM (BEAKER) (test code = 1.9 mg/dL 1.5-3.0 627) Scallop Cutter Machine ID - LITOOperator ID - LITOOperator ID - LITOOperator ID - MARTÍN [id number] 06:16:11 Test Item Value Reference Range Interpretation Comments PHOSPHORUS (BEAKER) (test code = 3.4 mg/dL 2.5-4.5 604) Scallop Cutter Machine ID - LITOPROTHROMBIN TIME/[id number] 06:03:04 Test Item Value Reference Range Interpretation Comments PROTIME (BEAKER) 12.4 seconds 9.3-12.0 H Final Infor mation (test code = 759) (Auto Outp ut) INR (BEAKER) (test 1.14 See_Comment Final Inf ormation code = 370) (Auto Output) [Automated mess age] The system [employer] generated this result transmitted ref erence range: <=5.90. The reference range was not used to int erpret this result as normal/abnormal . RECOMMENDED COUMADIN/WARFARIN INR THERAPY RANGESSTANDARD DOSE: 2.0 - 3.0 Includes: PROPHYLAXIS for venous thrombosis, systemic embolization; TREATMENT for venous thrombosis and/or pulmonary embolus.HIGH RISK: Target INR is 2.5-3.5 for patients with mechanical heart valves.[id number] 06:03:04 Test Item Value Reference Range Interpretation Comments PARTIAL THROMBOPLASTIN 29.5 seconds 23.0-35.0 Final Information TIME (TONEY) (test (Auto Ou tput) code = 760) POCT-GLUCOSE [id number] 20:00:47 Test Item Value Reference Range Interpretation Comments POC-GLUCOSE METER 172 mg/dL 70-110 H : TESTED A T [address] (BEAKER) (test code [address], = 1538) [place] [address]: Scallop Cutter Machine/Techni faviola ID = [id number] for Will iams, Ina POCT-GLUCOSE [id number] 18:09:30 Test Item Value Reference Range Interpretation Comments POC-GLUCOSE METER 121 mg/dL 70-110 H : TESTED A T [address] (BEAKER) (test code [address], = 1538) [place] [address]: Scallop Cutter Machine/Techni faviola ID = [id number] for Will iams, Robe POCT-GLUCOSE [id number] 12:48:21 Test Item Value Reference Range Interpretation Comments POC-GLUCOSE METER 102 mg/dL 70-110 : TESTED A T [address] (BEAKER) (test code [address], = 1538) [place] [address]: Scallop Cutter Machine/Techni faviola ID = [id number] for Avelino hConnieKerline POCT-GLUCOSE [id number] 08:00:17 Test Item Value Reference Range Interpretation Comments POC-GLUCOSE METER 119 mg/dL 70-110 H : TESTED A T [address] (BEAKER) (test code [address], = 1538) [place] [address]: Scallop Cutter Machine/Techni faviola ID = [id number] for Robe Agrawal POCT-GLUCOSE [id number] 21:28:11 Test Item Value Reference Range Interpretation Comments POC-GLUCOSE METER 227 mg/dL 70-110 H : TESTED A T [address] (BEAKER) (test code [address], = 1538) [place] [address]: Scallop Cutter Machine/Techni faviola ID = [id number] for Libia Pop POCT-GLUCOSE [id number] 15:35:44 Test Item Value Reference Range Interpretation Comments POC-GLUCOSE METER 168 mg/dL 70-110 H : TESTED A T [address] (BEAKER) (test code [address], = 1538) [place] [address]: Scallop Cutter Machine/Techni faviola ID = [id number] for Maribel Jimenez, REPL CVC/TUNNELED W/O [id number] 11:59:00 [facility] : 1950 Sex: [...] a permanent image was stored. Catheter size (Uruguayan): 15.5Catheter flush: Heparin (100 units/mL) Abbie sureThe [...] MDReport Verified Date/Time: 01/10/2022 11:59:48 Reading Location: [facility] Radiology Reading Room POCT-GLUCOSE [id number] 11:32:33 Test Item Value Reference Range Interpretation Comments POC-GLUCOSE METER 105 mg/dL 70-110 : TESTED A T [address] (BEAKER) (test code [address], = 1538) [facility] 77 478: Scallop Cutter Machine/Techni faviola ID = [id number] for Maribel Jimenez BASIC METABOLIC [id number] 04:51:32 Test Item Value Reference Range Interpretation [...] not appl icable for dialysis patien ts Scallop Cutter Machine ID - LITOOperator ID - LITOOperator ID - LITOOperator ID - LITOOperator ID - LITOOperator ID - LITOOperator ID - LITOOperator ID - LITOOperator ID - LITOOperator ID - [id number] 04:50:58 Test Item Value Reference Range Interpretation Comments MAGNESIUM (BEAKER) (test code = 2.0 mg/dL 1.5-3.0 627) Scallop Cutter Machine ID - LITOOperator ID - LITOOperator ID - LITOOperator ID - MARTÍN [id number] 04:48:19 Test Item Value Reference Range Interpretation Comments PHOSPHORUS (BEAKER) (test code = 3.9 mg/dL 2.5-4.5 604) Scallop Cutter Machine ID - [id number] 04:44:00 Test Item Value Reference Range Interpretation Comments PARTIAL THROMBOPLASTIN 51.7 seconds 23.0-35.0 H Final Information TIME (BEAKER) (test (Auto Ou tput) code = 760) CBC W/PLT COUNT & AUTO [id number] 04:24:30 Test Item Value Reference Range Interpretation [...] PERCENT (BEAKER) (test code = 2801) POCT-GLUCOSE [id number] 21:26:47 Test Item Value Reference Range Interpretation Comments POC-GLUCOSE METER 127 mg/dL 70-110 H : TESTED A T [address] (BEAKER) (test code [address], = 1538) [place] [address]: Scallop Cutter Machine/Techni faviola ID = [id number] for Libia Pop [id number] 20:08:11 Test Item Value Reference Range Interpretation Comments PARTIAL THROMBOPLASTIN 41.3 seconds 23.0-35.0 H Final Information TIME (AKER) (test (Auto Ou tput) code = 760) POCT-GLUCOSE [id number] 17:14:06 Test Item Value Reference Range Interpretation Comments POC-GLUCOSE METER 154 mg/dL 70-110 H : TESTED A T [address] (BEAKER) (test code [address], = 1538) [place] [address]: Scallop Cutter Machine/Techni faviola ID = [id number] for Ej vergaraAileen POCT-GLUCOSE [id number] 11:55:38 Test Item Value Reference Range Interpretation Comments POC-GLUCOSE METER 153 mg/dL 70-110 H : TESTED A T [address] (BEAKER) (test code [address], = 1538) [place] [address]: Scallop Cutter Machine/Techni faviola ID = [id number] for Maribel Jimenez HEPATITIS B SURFACE [id number] 11:29:52 Test Item Value Reference Range Interpretation Comments HEPATITIS B SURFACE ANTIBODY 53.8 mIU/mL <8.0 H (BEAKER) (test code = 647) Scallop Cutter Machine ID - [id number] 10:04:36 Test Item Value Reference Range Interpretation Comments PARTIAL THROMBOPLASTIN 36.3 seconds 23.0-35.0 H Final Information TIME (BEAKER) (test (Auto Ou tput) code = 760) POCT-GLUCOSE [id number] 07:31:03 Test Item Value Reference Range Interpretation Comments POC-GLUCOSE METER 111 mg/dL 70-110 H : TESTED A T [address] (BEAKER) (test code [address], = 1538) [place] [address]: Scallop Cutter Machine/Techni faviola ID = [id number] for Maribel Jmienez [id number] 06:13:46 Test Item Value Reference Range Interpretation Comments MAGNESIUM (BEAKER) (test code = 1.8 mg/dL 1.5-3.0 627) Scallop Cutter Machine ID - [id number] ID - [id number] ID - [id number] ID - [id number] METABOLIC [id number] 06:12:49 Test Item Value Reference Range Interpretation [...] not appl icable for dialysis patien ts Scallop Cutter Machine ID - [id number] ID - [id number] ID - WXEFURGGS813Irzadteu ID - GVBKPIAPZ492Jroldono ID - RKSXMVAAG005Lnjtevrq ID - ZURCXCQCG073Cpvgxwem ID - FZLJYPMVR643Uwglhdca ID - ILILTJUJE790Pfhjqxct ID - ZPVTMCBZN290Kazvvwyn ID - [id number] 06:10:51 Test Item Value Reference Range Interpretation Comments PHOSPHORUS (BEAKER) (test code = 3.0 mg/dL 2.5-4.5 604) Scallop Cutter Machine ID - [id number] W/PLT COUNT & AUTO [id number] 05:49:35 Test Item Value Reference Range Interpretation [...] PERCENT (BEAKER) (test code = 2801) POCT-GLUCOSE [id number] 05:17:03 Test Item Value Reference Range Interpretation Comments POC-GLUCOSE METER 108 mg/dL 70-110 : TESTED A T [address] (BEAKER) (test code [facility] [address], = 1538) [facility] 77 478: Scallop Cutter Machine/Techni faviola ID = [id number] for esperanza Abraham [id number] 01:14:37 Test Item Value Reference Range Interpretation Comments PARTIAL THROMBOPLASTIN 37.5 seconds 23.0-35.0 H Final Information TIME (BEAKER) (test (Auto Ou tput) code = 760) HEPATITIS B SURFACE [id number] 18:36:43 Test Item Value Reference Range Interpretation Comments HEPATITIS B SURFACE ANTIGEN (2) Nonreactive Nonreactive (BEAKER) (test code = 2585) Scallop Cutter Machine ID - [id number] [id number] 17:00:29 Test Item Value Reference Range Interpretation Comments POC-GLUCOSE METER 131 mg/dL 70-110 H : TESTED A T [address] 1317 (BEAKER) (test code [facility] [facility] [facility], = 1538) [place] [address] 478: Scallop Cutter Machine/Techni faviola ID = [id number] for Bernie filomena Sherly, Migel [id number] 16:38:44 Test Item Value Reference Range Interpretation Comments PARTIAL THROMBOPLASTIN 42.5 seconds 23.0-35.0 H Final Information TIME (BEAKER) (test (Auto Ou tput) code = 760) POCT-GLUCOSE [id number] 12:29:39 Test Item Value Reference Range Interpretation Comments POC-GLUCOSE METER 168 mg/dL 70-110 H : TESTED A T [address] (BEAKER) (test code [address] [facility], = 1538) [place] [address]: Scallop Cutter Machine/Techni faviola ID = [id number] for Salvatorevenkat filomena Trujilloena Migel POCT-GLUCOSE [id number] 08:10:36 Test Item Value Reference Range Interpretation Comments POC-GLUCOSE METER 136 mg/dL 70-110 H : TESTED A T [address] (BEAKER) (test code [facility], = 1538) [place] [address] 478: Scallop Cutter Machine/Techni faviola ID = [id number] for Salvatorevenkat filomena Dubois Migel BASIC METABOLIC [id number] 06:18:43 Test Item Value Reference Range Interpretation [...] not appl icable for dialysis patien ts Scallop Cutter Machine ID - LITOOperator ID - LITOOperator ID - LITOOperator ID - LITOOperator ID - LITOOperator ID - LITOOperator ID - LITOOperator ID - LITOOperator ID - LITOOperator ID - [id number] 06:17:29 Test Item Value Reference Range Interpretation Comments MAGNESIUM (BEAKER) (test code = 1.6 mg/dL 1.5-3.0 627) Scallop Cutter Machine ID - LITOOperator ID - LITOOperator ID - LITOOperator ID - MARTÍN HEMOGLOBIN [id number] 06:16:10 Test Item Value Reference Range Interpretation Comments HEMOGLOBIN A1C (BEAKER) (test code = 8.5 % 4.3-6.1 H 368) Scallop Cutter Machine ID - [id number] 06:14:08 Test Item Value Reference Range Interpretation Comments PHOSPHORUS (BEAKER) (test code = 5.0 mg/dL 2.5-4.5 H 604) Scallop Cutter Machine ID - [id number] 05:59:43 Test Item Value Reference Range Interpretation Comments PARTIAL THROMBOPLASTIN 45.4 seconds 23.0-35.0 H Final Information TIME (BEAKER) (test (Auto Ou tput) code = 760) CBC W/PLT COUNT & AUTO [id number] 05:48:29 Test Item Value Reference Range Interpretation [...] H PERCENT (BEAKER) (test code = 2801) [id number] 21:22:07 Test Item Value Reference Range Interpretation Comments PARTIAL THROMBOPLASTIN 26.5 seconds 23.0-35.0 Final Information TIME (BEAKER) (test (Auto Ou tput) code = 760) POCT-GLUCOSE [id number] 21:12:37 Test Item Value Reference Range Interpretation Comments POC-GLUCOSE METER 136 mg/dL 70-110 H : TESTED A T [address] (BEAKER) (test code [address], = 1538) [facility] 77 478: Scallop Cutter Machine/Techni faviola ID = [id number] for esperanza Abraham POC [id number] 16:00:00 Test Item Value Reference Range Interpretation Comments POC glucose (test code = 158 mg/dL 65-99 H Ope rator Name: [id number]) Bob Valentine tracythiago ID: [id number] Lab Interpretation (test Abnormal code = 12518-5) [facility] [id number] 16:00:00 Test Item Value Reference Range Interpretation Comments POC glucose (test code = 158 mg/dL 65-99 H Ope rator Name: [id number]) Bob tracythiago ID: [id number] Lab Interpretation (test Abnormal code = 59906-7) [facility] pathology [id number] 15:05:25 Test Item Value Reference Range Interpretation Comments Case number (test code = [id number]) Surgical pathology See link below for report (test code = PDF Lab Report 2255) Result status (test code This is Final Report = [id number]) for [id number] [facility] pathology [id number] 15:05:25 Test Item Value Reference Range Interpretation Comments Case number (test code = [id number]) Surgical pathology See link below for report (test code = PDF Lab Report 2255) Result status (test code This is Final Report = [id number]) for [id number] [facility] 12 [id number] 12:23:18 Test Item Value Reference Range Interpretation [...] of 12-AUG-2021 06:02,-No significant change was found- [facility] 12 [id number] 12:23:18 Test Item Value Reference Range Interpretation [...] of 12-AUG-2021 06:02,-No significant change was found- [facility] ED Preliminary Interpretation - Not an [id number] 21:23:51 Test Item Value Reference Range Interpretation Comments VALERIANO (test code = VALERIANO) Marley Cronin NP-C 09/07/2021 9:29 [facility] Preliminary Interpretation - Not an OrderPerformed by: Marley Cronin NP-CAuthorized by: Trinidad Menard MD ECG reviewed by ED Physician in the absence of a player development executive: no Previous ECG: Previous ECG: UnavailableInterpretat ion: Interpretation: abnormal Rate: ECG rate: 80 ECG rate assessment: normal Rhythm: Rhythm: paced Pacing: Type of pacing: VentricularEctopy: Ectopy: none QRS: QRS axis: Normal QRS intervals: NormalConduction: Conduction: normal ST segments: ST segments: Normal Lab Interpretation Abnormal (test code = 71500-0) [facility] ED Preliminary Interpretation - Not an [id number] 21:23:51 Test Item Value Reference Range Interpretation Comments VALERIANO (test code = VALERIANO) Marley Cronin NP-C 09/07/2021 9:29 [facility] Preliminary Interpretation - Not an OrderPerformed by: Marley Cronin NP-CAuthorized by: Trinidad Menard MD ECG reviewed by ED Physician in the absence of a player development executive: no Previous ECG: Previous ECG: UnavailableInterpretat ion: Interpretation: abnormal Rate: ECG rate: 80 ECG rate assessment: normal Rhythm: Rhythm: paced Pacing: Type of pacing: VentricularEctopy: Ectopy: none QRS: QRS axis: Normal QRS intervals: NormalConduction: Conduction: normal ST segments: ST segments: Normal Lab Interpretation Abnormal (test code = 51285-9) Confucianist QhsvzrttALBS-IwR-8 (COVID-19) RNA [Presence] in Respiratory specimen by LANG with probe [id number] 13:39:12 Test Item Value Reference Range Interpretation Comments SARS-CoV-2 (COVID-19) RNA Not detected [Presence] in Respiratory specimen by LANG with probe detection (test code = 29768-1) Whether patient is employed in a Unknown healthcare setting (test code = 13145-9) Whether the patient has symptoms Unknown related to condition of interest (test code = 15733-3) Whether the patient was Unknown hospitalized for condition of interest (test code = 85745-4) Whether the patient was admitted Unknown to intensive care unit (ICU) for condition of interest (test code = 11665-4) Whether patient resides in a Unknown congregate care setting (test code = 13140-1) status (test code = Unknown 76246-1) Date and time of symptom onset Unknown (test code = 20431-0) [facility] myocardial [id number] 02:36:07 Test Item Value Reference Range Interpretation Comments Target HR (test code 148.00 bpm = 7673402530) Resting HR (test 83 BPM code = 8006465250) Resting BP (test 178/79 mmHg code = 4582031932) Percent HR (test 54.05 % code = 4066917090) Post Peak HR (test 80 bpm code = 2226425089) Post Peak BP (test 161/77 mmHg code = 7086371438) Radiology Study observation (narrative) (test code = 84072-7) VALERIANO (test code = Study Quality: good. [...] left ventricle ejection fraction is mildly reduced. [facility] [id number] 22:06:40 Test Item Value Reference Range Interpretation Comments Resting BP (test code = 8927968995) Protocol Name (test LEXISCAN code = 0569938302) Time in Exercise 00:01:00 Phase (test code = 4823839383) Max Systolic BP (test code = 0539511287) Max Diastolic BP (test code = 7790809130) Max Heart Rate (test code = 2627310223) Max Predicted Heart Rate (test code = 1114449137) Test Indication (test code = 3667392871) Arrhy During Ex (test code = 3337129525) ECG Interp Before EX (test code = 7847874833) ECG Interp During Ex (test code = 5011981311) Ex Summary Comment (test code = 8668072021) Overall HR Response to Exercise (test code = 8794972078) Overall BP Response To Exercise (test code = 5505063223) Reason for Termination (test code = 1957030209) Stress Test Waveform interpreted in Impression (test code report associated with = 0007850269) image study. No interpretation is provided as part of this Stress ECG report.-Electronically Signed By Caron Medina MD ([id number]), editorial manager Dasyi Chapman ([id number]) on 08/02/2021 5:06:37 PM [facility] [id number] 22:06:40 Test Item Value Reference Range Interpretation Comments Resting BP (test code = 3259994811) Protocol Name (test LEXISCAN code = 7820775596) Time in Exercise 00:01:00 Phase (test code = 1994487235) Max Systolic BP (test 178 code = 3922262400) Max Diastolic BP 79 (test code = 6815746273) Max Heart Rate (test 81 code = 3523760702) Max Predicted Heart 148 Rate (test code = 5996961162) Test Indication (test code = 7644910733) Arrhy During Ex (test code = 2125964343) ECG Interp Before EX (test code = 0595862278) ECG Interp During Ex (test code = 5114397016) Ex Summary Comment (test code = 4118424150) Overall HR Response to Exercise (test code = 7007375913) Overall BP Response To Exercise (test code = 1753167577) Reason for Termination (test code = 2515031796) Stress Test Waveform interpreted in Impression (test code report associated with = 4503224064) image study. No interpretation is provided as part of this Stress ECG report.-Electronically Signed By Caron Medina MD ([id number]), editorial manager Daysi Chapman ([id number]) on 08/02/2021 5:06:37 PM [facility], (w Contrast, Strain and 3D if needed)2021-08-01 17:44:46 Test Item Value Reference Range Interpretation Comments AoV Area, Vmax (test 2.41 cm2 code = 2332660758) AoV Area, VTI (test 2.36 cm2 code = 1956323271) AoV Mean PG (test 5.59 mmHg code = 8303473670) AoV Peak PG (test 11.08 mmHg code = 0879301034) AoV Vmax (test code 1.77 m/s = 1542383820) AoV VTI (test code = 0.30 m 0338978602) IVS,d (test code = 1.11 cm 6839587369) LV,d (test code = 5.57 cm 8393959010) LV EF,A2C (test code 44.91 % = 8371411844) LV EF,A4C (test code 42.43 % = 7660387534) LV EF,BP (test code 42.76 % = 4733526103) Santana Bainbridge,d A2C (test 7.79 cm code = 5396194796) Santana Bainbridge,d A4C (test 7.59 cm code = 3450760612) Santana Bainbridge,s A2C (test 7.10 cm code = 0645597580) Santana Bainbridge,s A4C (test 6.58 cm code = 6810000986) LV,s (test code = 4.42 cm 3293388375) LV SV,A2C (test code 59.18 % = 9522838109) LV SV,A4C (test code 64.42 % = 6032324878) LV Vol,d A2C (test 131.77 mL code = 6570379622) LV Vol,d A4C (test 151.81 ml code = 5838869538) LV Vol,d BP (test 142.79 ml code = 6131472778) LV Vol,s A2C (test 72.60 mL code = 8073890741) LV Vol,s A4C (test 87.39 ml code = 6107245818) LV Vol,s BP (test 81.72 nl code = 8728323761) LVOT Diam,S (test 2.08 cm code = 0772680891) LVOT Vmax (test code 1.16 m/s = 8903906158) LVOT VTI (test code 0.21 m = 4811632839) LVPWD,d (test code = 1.05 cm 5650082317) TR Vpeak (test code 2.66 mm/s = 5897409880) AR Press Half Time 504.65 ms (test code = 3253297766) TR pk grad (test 27.27 mmHg code = 2328277459) MR Vmax (test code = 6.10 m/s 4500180850) MR peak grad (test 121.70 mmHg code = 2225669612) E wave decelartion 149.68 msec time (test code = 4510098089) MV Peak E Des (test 1.46 m/s code = 8682085202) LVOT stroke volume 0.71 cm3 (test code = 2690120877) AV LVOT peak 5.36 mmHg gradient (test code = 9332220594) LV SYS VOL (test 88.60 ml code = 5182876316) LV THOMPSON VOL (test 151.60 ml code = 5680719272) LA area s A4C (test 35.87 cm2 code = 1094706135) LV SV Teich 2D (test 63.00 ml code = 3841596409) LVOT SI (test code = 38.28 ml/m2 5931898630) AoV Cusp sep (test 1.72 code = 2010670004) AoV Vmn (test code = 1.10 3691632138) IVS s 2D (test code 1.72 = 2820735831) AR slope (test code 2.59 = 9018397628) Ar Vmax (test code = 3.99 5765738440) LA Ao Ratio Mmode 2.07 (test code = 8755266312) LVOT Vmn (test code 0.80 = 3571453360) Pt Size (test code = 162.56 0543902779) Pt Wt (test code = 81.19 2500914182) PV AT (test code = 94.20 msec 7951112370) LVOT mean grad (test 2.88 mmHg code = 6562168949) AR DT (test code = 1541.52 msec 6186321993) AR pk grad (test 58.41 mmHg code = 6072231745) LVPW s PLAX (test 1.41 cm code = 8732580815) MV Decel slope (test 9.79 m/s2 code = 8531070203) LA Vol MOD A4C (test 124.31 ml code = 7602373793) Velocity Ratio 0.66 m/s (V1/V2) (test code = 4689) EF (test code = 41.56 % 6966092877) LVOT area (test code 3.40 cm2 = 9165932840) LVOT VTI (CM) (test 21.00 cm code = 1644981962) RA pressure (test 15.00 mmHg code = 6512057835) LA Vol 4C (test code 124.00 ml = 5693432162) RVSP (test code = 43.38 mmHg 9302665017) LA diam s (test code 5.50 cm = 7906742658) Aortic Root (test 2.63 cm code = 3423236996) MN End Thompson Grad 11.73 (test code = 4675922732) MN End Diat Des 1.71 (test code = 1024395829) AR maxPG (test code 63.74 = 7382017143) D E excurs (test 2.00 code = 7339433712) E f slope (test code 0.08 = 1788676558) E prime lat (test 0.06 code = 9281785667) E keaton sept (test 0.09 code = 4019216562) PV acc T slope (test 6.80 code = 8496563106) CONDE BP EF (test 43.00 % code = 0204253325) LA VOL 2C (test code 138.00 ml = 1549777318) VALERIANO (test code = The left ventricle [...] of aortic valve stenosis.PericardiumNo pericardial effusion seen. Confucianist TodowreaCWXE-FxE-4 (COVID-19) RNA [Presence] in Respiratory specimen by LANG with probe [id number] 23:11:03 Test Item Value Reference Range Interpretation Comments SARS-CoV-2 (COVID-19) RNA Not detected [Presence] in Respiratory specimen by LANG with probe detection (test code = 89716-7) Whether patient is employed in a Unknown healthcare setting (test code = 02004-9) Whether the patient has symptoms Unknown related to condition of interest (test code = 83569-0) Whether the patient was Unknown hospitalized for condition of interest (test code = 44554-7) Whether the patient was admitted Unknown to intensive care unit (ICU) for condition of interest (test code = 53967-4) Whether patient resides in a Unknown congregate care setting (test code = 83889-3) status (test code = Unknown 59746-2) Date and time of symptom onset Unknown (test code = 33093-8) [facility]-CoV-2 (COVID-19) RNA [Presence] in Respiratory specimen by LANG with probe [id number] 11:45:59 Test Item Value Reference Range Interpretation Comments SARS-CoV-2 (COVID-19) RNA Not detected Not-Detected [Presence] in Respiratory specimen by LANG with probe detection (test code = 71876-1) Whether patient is employed in a healthcare setting (test code = 35236-7) Whether the patient has symptoms related to condition of interest (test code = 35777-4) Patient was hospitalized because of this condition (test code = 79122-8) Whether the patient was admitted to intensive care unit (ICU) for condition of interest (test code = 43794-4) Whether patient resides in a congregate care setting (test code = 58031-1) [facility]-CoV-2 (COVID-19) RNA [Presence] in Respiratory specimen by LANG with probe [id number] 05:28:15 Test Item Value Reference Range Interpretation Comments SARS-CoV-2 (COVID-19) RNA Not detected Not-Detected [Presence] in Respiratory specimen by LANG with probe detection (test code = 15042-7) [facility]-CoV-2 (COVID-19) RNA [Presence] in Respiratory specimen by LANG with probe [id number] 23:52:31 Test Item Value Reference Range Interpretation Comments SARS-CoV-2 (COVID-19) RNA Not detected Not-Detected [Presence] in Respiratory specimen by LANG with probe detection (test code = 71810-9) [facility] Date/Time Note Provider Source 2022-01-09 12:30:04-00:00 NATACHA SCHULZ [facility] CONSULTATION LATRICIA LUBIN: [facility] Billing #: [id number] Room: [address] [place] [address] MR #: [id number] : 1950 DATE OF ADMISSION: 01/07/2022 DATE OF CONSULTATION: 01/09/2022 REQUESTING PHYSICIAN: MACHINE PIE MAKER: Natacha Schulz MD SUBJECTIVE: Ms. Latricia Lubin [...] this done for her al ambrosio. ITM/MODL /[id number]
[2022-11-22 11:48] LABS: Absolute Lymphocytes (CBC) 1.5 K/uL (0.7-4.9); Hematocrit 35.5 % (36.0-45.0); Lymphocytes % 16.8 % (15.3-44.8); MCV 84.4 fL (80-100); MPV 7.6 fL (7.6-11.3)
[2022-11-22] MEDS ORDERED: ONDANSETRON 4 MG/2 ML VIAL ONE (11:56)
[2022-11-22] MEDS ORDERED: MORPHINE 4 MG/ML SYR ONE (11:56)
[2022-11-22 12:07] LABS: Potassium 4.2 mEq/L (3.5-5.1); Troponin High Sensitivity 21.8 pg/mL (<58.9)
--- NOTE | 2022-11-22 13:25 | RAD REPORT ---
EXAM DESCRIPTION: CT - Head Brain Wo Cont - 11/22/2022 12:56 pm CLINICAL HISTORY: ams COMPARISON: Head Brain Wo Cont dated 07/19/2022; Head Brain Wo Cont dated 01/06/2022 TECHNIQUE: Noncontrast head CT images were obtained without IV contrast. Multiplanar reformats were generated and reviewed. All CT scans are performed using dose optimization technique as appropriate and may include automated exposure control or mA/KV adjustment according to patient size. FINDINGS: No intracranial hemorrhage, mass, or edema. Midline structures are unremarkable. Normal ventricular caliber for age. Kang-white matter differentiation is preserved, without evidence of acute infarct. No abnormal extra- axial fluid collections. Mild deep white matter hypoattenuation, nonspecific, most suggestive of chr onic small vessel ischemic changes. Mastoid air cells and visualized portions of the paranasal sinuses are clear. No acute bony findings. IMPRESSION: No evidence of an acute intracranial process.
[2022-11-22 13:32] LABS: Specific Gravity 1.015 (1.005-1.030); Urine Bacteria <20 /HPF (<20); Urine Bilirubin NEGATIVE (Negative); Urine Blood 1+ (Negative); Urine Clarity Extremely Turbid (Clear); Urine Color Yellow (Yellow); Urine Glucose TRACE (Negative); Urine Protein 2+ (Negative); Urine RBC <5 /HPF (None Seen); Urine Urobilinogen Normal (Normal); Urine WBC Clump Many /HPF (None Seen); Urine pH 5.5 (5.0-7.0)
--- NOTE | 2022-11-22 13:42 | EDPHYS ---
Physician Documentation [facility] Name: Latricia Cadet Age: 72 yrs Sex: Female : 1950 Arrival Date: 11/22/2022 Time: 11:14 Bed 8 Private MD: ED Physician Migel Rose HPI: 11/22 11:16 This 72 yrs old Female presents to ER via EMS with complaints of Pain All Over. jmm 11:16 This is a 72-year-old female with history of CHF, COPD, diabetes mellitus, end-stage jmm renal disease the presents emerged department with complaints of generalized pain. Patient was scheduled for dialysis today. Denies chest pain or shortness of breath. Family states that the patient was recently admitted for heatstroke and since discharged this past patient has been somnolent and altered.. Historical: - Allergies: 12:03 No Known Allergies; iw - Home Meds: 11:23 Eliquis oral [Active]; furosemide 80 mg Oral tab 1 tab daily [Active]; gabapentin oral iw [Active]; midodrine oral [Active]; pantoprazole oral [Active]; - PMHx: 11:22 angina pectoris; CHF; COPD; Diabetes - NIDDM; dialysis T, TH, Sat.; heart attack; iw Hypertension; insomnia; kidney disease; Rheumatoid Arthritis; Sleep Apnea; - PSHx: 11:22 HD Fistula - Right arm; hysterectomy; pacemaker; iw - Immunization history:: Adult Immunizations up to date. - Social history:: Smoking status: Patient denies any tobacco usage or history of. ROS: 11:16 Constitutional: Negative for fever, chills, and weight loss, Cardiovascular: Negative jmm for chest pain, palpitations, and edema, Respiratory: Negative for shortness of breath, cough, wheezing, and pleuritic chest pain. 11:16 MS/extremity: Positive for pain. 11:16 Neuro: Positive for altered mental status. 11:16 All other systems are negative. Exam: 11:16 Head/Face: atraumatic. Eyes: EOMI, no conjunctival erythema appreciated ENT: Moist jmm Mucus Membranes Neck: Trachea midline, Supple Chest/axilla: Normal chest wall appearance and motion. Cardiovascular: Regular rate and rhythm. No edema appreciated Respiratory: Normal respirations, no respiratory distress appreciated Abdomen/GI: Non distended Back: Normal ROM Skin: General appearance color normal 11:16 Constitutional: The patient appears awake, non-toxic. 11:16 Musculoskeletal/extremity: ROM: intact in all extremities. 11:16 Skin: Appearance: Color: normal in color. 11:16 Neuro: Orientation: to person, Motor: is normal. 11:16 Psych: Behavior/mood is cooperative. Vital Signs: 11:28 BP 109 / 58; Pulse 80; Resp 16; Temp 98.2; Pulse Ox 96% ; Weight 62.14 kg; Pain 8/10; iw 13:31 BP 125 / 50; Pulse 80; Resp 16; Pulse Ox 97% on R/A; iw 15:25 BP 117 / 52; Pulse 80; Resp 20; Pulse Ox 97% on R/A; mb9 11:28 Pain Scale: Adult iw MDM: 11:[address] [facility] 14:50 Differential Diagnosis: CVA, electrolyte abnormality, intracranial bleed, TIA, UTI, jmm volume depletion. Data reviewed: vital signs, nurses notes, lab test result(s). Consideration of Admission/Observation Escalation of care including admission/observation considered. Management of patient was discussed with the following: Hospitalist: Bree. Counseling: I had a detailed discussion with the patient and/or guardian regarding: the historical points, exam findings, and any diagnostic results supporting the discharge/admit diagnosis, lab results, the need for further work-up and treatment in the hospital. 11/22 11:19 Order name: CBC with Diff; Complete Time: 11:54 [facility] 11/22 11:19 Order name: BMP; Complete Time: 12:08 [facility] 11/22 11:19 Order name: Troponin High Sensitivity; Complete Time: 12:08 [facility] 11/22 12:11 Order name: Urinalysis w/ reflexes; Complete Time: 13:34 [facility] 11/22 13:35 Order name: Urine Culture [facility] 11/22 13:36 Order name: Lactate w/ 2H reflex if indic.; Complete Time: 14:47 [facility] 11/22 13:36 Order name: Blood Culture Adult (2) [facility] 11/22 14:51 Order name: Magnesium; Complete Time: 15:44 [facility] 11/22 14:51 Order name: Phosphorus; Complete Time: 15:44 [facility] 11/22 14:51 Order name: T4 Free; Complete Time: 15:44 [facility] 11/22 14:51 Order name: Thyroid Stimulating Hormone; Complete Time: 15:44 [facility] 11/22 14:51 Order name: Urinalysis w/ reflexes [facility] 11/22 14:51 Order name: Basic Metabolic Panel [facility] 11/22 14:51 Order name: Basic Metabolic Panel [facility] 11/22 14:51 Order name: CBC with Automated Diff [facility] 11/22 14:51 Order name: CBC with Automated Diff [facility] 11/22 14:51 Order name: Lipid Profile [facility] 11/22 14:51 Order name: Lipid Profile [facility] 11/22 12:43 Order name: CT Head Brain wo Cont; Complete Time: 13:26 [facility] 11/22 13:20 Order name: Chest Single View XRAY; Complete Time: 14:30 [facility] 11/22 14:51 Order name: CONS Physician Consult [facility] 11/22 14:51 Order name: Renal [facility] 11/22 11:19 Order name: EKG - Nurse/Tech; Complete Time: 12:20 [facility] 11/22 11:19 Order name: Saline Lock; Complete Time: 11:41 [facility] Administered Medications: 11:30 Drug: morphine IVP or IV 2 mg Route: IVP; Infused Over: 4 mins; Site: left upper arm; iw 12:30 Follow up: Response: No adverse reaction iw 12:02 Drug: Ondansetron IVP 4 mg Route: IVP; Site: left upper arm; iw 12:30 Follow up: Response: No adverse reaction iw 14:17 Drug: Rocephin IV 1 grams Route: IV; Rate: calculated rate; Site: left upper arm; iw 14:23 Follow up: IV Status: Completed infusion iw Disposition: 21:10 Co-signature as Attending Physician, Migel Rose MD I reviewed the patient's care rt provided by the Advanced Practice Provider and agree with the diagnosis and treatment plan. Disposition Summary: 11/22/22 13:41 Hospitalization Ordered Hospitalization Status: Observation [facility] Provider: Des Ellison Location: Telemetry/MedSurg (observation) jmm Condition: Stable [facility] Problem: an acute exacerbation jmm Symptoms: are unchanged [facility] Bed/Room Type: Standard [facility] Room Assignment: 201(11/22/22 15:19) dw Diagnosis - UTI/ Urinary tract infection, site not specified jmm - Altered mental status, unspecified jmm - End stage renal disease turner Forms: - Medication Reconciliation Form suzanne - SBAR form suzanne Signatures: Dispatcher [employer] Sarahi Teixeira RN RN dw Mickail, Joel, PA PA jmm Williams, Irene, RN RN iw Turkington, Ryan, MD MD rt Corrections: (The following items were deleted from the chart) 15:19 13:41 suzanne ramirez
--- NOTE | 2022-11-22 13:42 | ER ---
Nurse's Notes [facility] Name: Latricia Cadet Age: 72 yrs Sex: Female : 1950 Arrival Date: 11/22/2022 Time: 11:14 Bed 8 Private MD: Diagnosis: UTI/ Urinary tract infection, site not specified;Altered mental status, unspecified;End stage renal disease Presentation: 11/22 11:21 Chief complaint: EMS states: pt c/o pain all over, hx of RA, c/o pain to joints, neck, iw back, right knee, left ankle, lorelei arm and hand pain , missed dialysis today. Coronavirus screen: At this time, the client does not indicate any symptoms associated with coronavirus-19. Ebola Screen: Patient negative for fever greater than or equal to 101.5 degrees Fahrenheit, and additional compatible Ebola Virus Disease symptoms Patient denies exposure to infectious person. Patient denies travel to an Ebola-affected area in the 21 days before illness onset. No symptoms or risks identified at this time. Initial Sepsis Screen: Does the patient meet any 2 criteria? No. Patient's initial sepsis screen is negative. Does the patient have a suspected source of infection? No. Patient's initial sepsis screen is negative. Risk Assessment: Do you want to hurt yourself or someone else? Patient reports no desire to harm self or others. Onset of symptoms was November 22, 2022. 11:21 Method Of Arrival: EMS: [facility] iw 11:21 Acuity: JAKE 3 iw Triage Assessment: 11:25 General: Appears in no apparent distress. Behavior is cooperative. iw Historical: - Allergies: 12:03 No Known Allergies; iw - Home Meds: 11:23 Eliquis oral [Active]; furosemide 80 mg Oral tab 1 tab daily [Active]; gabapentin oral iw [Active]; midodrine oral [Active]; pantoprazole oral [Active]; - PMHx: 11:22 angina pectoris; CHF; COPD; Diabetes - NIDDM; dialysis T, TH, Sat.; heart attack; iw Hypertension; insomnia; kidney disease; Rheumatoid Arthritis; Sleep Apnea; - PSHx: 11:22 HD Fistula - Right arm; hysterectomy; pacemaker; iw - Immunization history:: Adult Immunizations up to date. - Social history:: Smoking status: Patient denies any tobacco usage or history of. Screenin:04 Abuse screen: Denies threats or abuse. Denies injuries from another. Nutritional iw screening: No deficits noted. Tuberculosis screening: No symptoms or risk factors identified. 15:26 [facility] ED Fall Risk Assessment (Adult) History of falling in the last 3 months, mb9 including since admission Yes- single mechanical fall (1 pt) Confusion or Disorientation Yes (5 pts) Intoxicated or Sedated No (0 pts) Impaired Gait Yes (1 pt) Mobility Assist Device Used Yes (1 pt) Altered Elimination No (0 pt) Score/Fall Risk Level 3 or more points = High Risk Oriented to surroundings, Maintained a safe environment, Educated pt \T\ family on fall prevention, incl call for assistance when getting out of bed. Assessment: 11:25 General: Appears in no apparent distress. Behavior is drowsy. Pain: Complains of pain iw in all over. Neuro: Level of Consciousness is obeys commands, Oriented to person, place, Moves all extremities. Cardiovascular: Patient's skin is warm and dry. Cardiovascular: Dialysis shunt: in the right bicep, with palpable thrill, with no erythema, with no edema, no bleeding noted. Respiratory: Respiratory effort is even, unlabored, Respiratory pattern is regular, symmetrical, Denies cough, shortness of breath. GI: Abdomen is flat, non-distended. Derm: Skin is fragile, Skin is pink, warm \T\ dry. Musculoskeletal: Range of motion: intact in all extremities. 12:03 Reassessment: Patient appears in no apparent distress at this time. Patient and/or iw family updated on plan of care and expected duration. Pain level reassessed. pt appears drowsy , awakens easily to verbal stimuli. 13:15 Reassessment: Patient appears in no apparent distress at this time. pt appears to be iw sleeping, awakens easily to verbal stimuli, respirations even unlabored. 15:23 Reassessment: attempted to call report to admitting nurse. mb9 15:41 Reassessment: Attempted to call report to admitting nurse Kamila. mb9 Vital Signs: 11:28 BP 109 / 58; Pulse 80; Resp 16; Temp 98.2; Pulse Ox 96% ; Weight 62.14 kg; Pain 8/10; iw 13:31 BP 125 / 50; Pulse 80; Resp 16; Pulse Ox 97% on R/A; iw 15:25 BP 117 / 52; Pulse 80; Resp 20; Pulse Ox 97% on R/A; mb9 11:28 Pain Scale: Adult iw ED Course: 11:15 Patient arrived in ED. iw 11:16 Yeison Piper PA is PHCP. m 11:16 Migel Rsoe MD is Attending Physician. jmm 11:20 Brittany Mora, RN is Primary Nurse. iw 11:22 Triage completed. iw 11:22 Arm band placed on. iw 11:30 Inserted saline lock: 20 gauge in left upper arm, using aseptic technique. Blood iw collected. 12:58 CT Head Brain wo Cont In Process Unspecified. EDMS 13:33 Chest Single View XRAY In Process Unspecified. EDMS 13:41 Des Ellison MD is Hospitalizing Provider. m 15:26 Placed in gown. Bed in low position. Call light in reach. Side rails up X 1. Client mb9 placed on continuous cardiac and pulse oximetry monitoring. NIBP monitoring applied. 15:26 No provider procedures requiring assistance completed. mb9 16:03 Patient admitted, IV remains in place. mb9 Administered Medications: 11:30 Drug: morphine IVP or IV 2 mg Route: IVP; Infused Over: 4 mins; Site: left upper arm; iw 12:30 Follow up: Response: No adverse reaction iw 12:02 Drug: Ondansetron IVP 4 mg Route: IVP; Site: left upper arm; iw 12:30 Follow up: Response: No adverse reaction iw 14:17 Drug: Rocephin IV 1 grams Route: IV; Rate: calculated rate; Site: left upper arm; iw 14:23 Follow up: IV Status: Completed infusion iw Medication: 15:25 VIS not applicable for this client. mb9 Outcome: 13:41 Decision to Hospitalize by Provider. m 16:03 Admitted to Med/surg via wheelchair, room 201, with chart, Report called to JUAN R Treviño 16:03 Condition: stable 16:03 Instructed on the need for admit. 16:26 Patient left the ED. mb9 Signatures: Dispatcher [employer] EDMS Yeison Piper PA PA jmm Williams, Irene, RN RN Mary Estrada RN RN gayle Corrections: (The following items were deleted from the chart) 14:20 12:03 morphine IVP or IV 2 mg IVP in left upper arm over 4 mins iw iw
[2022-11-22] MEDS ORDERED: CEFTRIAXONE 1000 MG/VIAL ONE (14:12)
--- NOTE | 2022-11-22 14:29 | RAD REPORT ---
EXAM DESCRIPTION: RADChest Single View11/22/2022 1:31 pm CLINICAL HISTORY: ams COMPARISON: Chest Single View dated 11/16/2022; Chest Single View dated 10/06/2022; Chest Single View dated 09/29/2022; Chest Single View dated 09/27/2022 TECHNIQUE: Portable AP view of the chest. FINDINGS: The lungs are clear. No pneumothorax or effusion. The cardiomediastinal contours are unch anged, with heart size again at the upper limit of normal. Left chest wall pacer/ AICD in place. IMPRESSION: No acute cardiopulmonary process.
[2022-11-22] MEDS ORDERED: ACETAMINOPHEN 325 MG TABLET PO PRN (14:45)
[2022-11-22] MEDS ORDERED: HYDROCODONE/APAP 5/325 MG TAB PO PRN (14:45)
[2022-11-22] MEDS ORDERED: ONDANSETRON 4 MG/2 ML VIAL IV PRN (14:48)
[2022-11-22] MEDS ORDERED: GLUCAGON 1 MG/VIAL IM PRN (15:01)
[2022-11-22] MEDS ORDERED: D50W 25 GM/50 ML SYRINGE IV PRN (15:01)
--- NOTE | 2022-11-22 15:02 | P.HP ---
Certification for Inpatient Patient admitted to: Inpatient With expected LOS: >2 Midnights Patient will require the following post-hospital care: None Practitioner: I am a practitioner with admitting privileges, knowledge of patient current condition, hospital course, and medical plan of care. Services: Services provided to patient in accordance with Admission requirements found in Title 42 Section 412.3 of the Code of Federal Regulations Patient History Date of Service: 11/22/22 Reason for admission: AMS History of Present Illness: Patient is a 72-year-old female with a past medical history significant for COPD, DM 2, ESRD, PA, hypertension, insomnia, rheumatoid arthritis, sleep apnea who presents with complaint of altered mental status. Patient was found altered by family. Patient lives alone. Patient was discharged from the hospital 4 days ago after being treated for AMS and UTI. Patient alert and oriented x3 but intermittently confused at time of assessment. Patient reported associated signs and symptoms of fatigue, weakness and generalized malaise. Patient reported that her last dialysis was while she was at the hospital. Patient denies any other signs and symptoms. Symptoms are aggravated or relieved by nothing. Patient was brought to the hospital for medical evaluation. Of note, family is concerned that patient is unable to take care of herself and may need . Allergies No Known Allergies Allergy (Verified 01/02/22 02:33) Home Medications: Furosemide [Lasix] 80 mg PO BID* 04/14/20 Isosorbide Mononitrate [Isosorbide Mononitrate ER] 60 mg PO DAILY 04/14/20 Sevelamer Carbonate [Renvela*] 2 tab PO TIDWM 01/02/22 Apixaban [Eliquis *] 2.5 mg PO BID #30 tab 05/08/22 Gabapentin 100 mg PO BID 07/19/22 Midodrine HCl 5 mg PO BID 07/19/22 Apixaban [Eliquis *] 2.5 mg PO BID #60 tab 11/18/22 Cefdinir [Cefdinir*] 300 mg PO BID #14 cap 11/18/22 Docusate [Colace Cap*] 100 mg PO BID #60 cap 11/18/22 Nepro Shake [Nepro*] 237 ml PO TID #90 can 11/18/22 - Past Medical/Surgical History Diabetic: Yes -: Diabetes mellitus type 2-insulin dependent -: Rheumatoid arthritis -: Hypertension -: Hyperlipidemia -: Chronic congestive heart failure-unknown EF -: ESRD on HD -: CAD -: L ankle fusion -: hysterectomy -: Dialysis catheter placement and removal -: Cholecystectomy -: pacemaker/defibrillator Psychosocial/ Personal History: Patient lives with her - Social History Smoking Status: Never smoker Alcohol use: No CD- Drugs: No Caffeine use: Yes Place of Residence: Home Review of Systems General: Weakness, Malaise, Other (fatigue) Eyes: Unremarkable ENT: Unremarkable Respiratory: Unremarkable Cardiovascular: Unremarkable Gastrointestinal: Unremarkable Genitourinary: Unremarkable Musculoskeletal: Unremarkable Integumentary: Unremarkable Neurological: Weakness Lymphatics: Unremarkable Physical Examination - Physical Exam General: Alert, Oriented x3, Cooperative, Confused HEENT: Atraumatic, PERRLA, Mucous membr. moist/pink, EOMI, Sclerae nonicteric Neck: Supple, 2+ carotid pulse no bruit, No LAD, Without JVD or thyroid abnormality Respiratory: Diminished Cardiovascular: No edema, Regular rate/rhythm, Normal S1 S2 Capillary refill: <2 Seconds Gastrointestinal: Normal bowel sounds, Non-distended, No tenderness Musculoskeletal: No clubbing, No swelling, No contractures, No tenderness Integumentary: No rashes Neurological: Normal speech, Normal tone, Normal affect Lymphatics: No axilla or inguinal lymphadenopathy - Studies Laboratory Data (last 24 hrs) 11/22/22 11:40: Sodium 135 L, Potassium 4.2, BUN 58 H, Creatinine 5.14 H, Glucose 175 H 11/22/22 11:40: WBC 9.20, Hgb 11.1 L, Hct 35.5 L, Plt Count 395 Assessment and Plan - Plan --Acute metabolic encephalopathy. Likely secondary to UTI. CT head unremarkable for any acute intracranial abnormality. Continue antibiotics. -- UTI POA. Continue antibiotics. Urine cultures pending. --Candidiasis. Yeast noted on UA. Patient placed on Diflucan. --ESRD. Patient noncompliant with dialysis. Nephrology consulted. Further management per collection systems foreman. --DM2 with neuropathy. BS monitoring with sliding scale insulin. We will hold off on gabapentin pending resolution of AMS. --Hypertension. Stable. Continue home medications. --Generalized weakness. PT eval and treat. Continue supportive care. --Rheumatoid arthritis. We will manage pain with current pain medication regimen. --Hyperlipidemia. Continue statin. --Insomnia. Continue melatonin. --Sleep apnea. Continue supportive care. --COPD. Stable. Continue home medication --History of DVT\PA. Continue aspirin, statin and Eliquis. --DVT prophylaxis with Eliquis -- Discharge planning. Patient lives . Patient apparently unable to take care of herself. Case management consulted for possible placement\help with resources. Discharge Plan: Home Plan to discharge in: Greater than 2 days - Advance Directives Does patient have a Living Will: No Does patient have a Durable POA for Healthcare: No - Code Status/Comfort Care Code Status Assessed: Yes Physician Review: Patient Assessed, Agree with Above Assessment and Plan
[2022-11-22] MEDS ORDERED: D10W 125 ML IV PRN (15:08)
[2022-11-22 15:43] LABS: Magnesium 2.3 mg/dL (1.6-2.4); Phosphorus 5.1 mg/dL (2.5-4.9); Thyroid Stimulating Hormone 1.29 uIU/mL (0.358-3.740)
[2022-11-22] MEDS ORDERED: MELATONIN 5 MG TABLET PO PRN (15:52)
[2022-11-22] MEDS: INSULIN -REGULAR HUMAN 50 UNIT/0.5 ML ML SQ SCH ×2 (16:30→22:09)
[2022-11-22 17:02] VITALS: BMI 25.0
[2022-11-22] MEDS: APIXABAN 2.5 MG TABLET PO SCH (19:56)
[2022-11-22] MEDS ORDERED: HEPARIN 5000 UNIT/ML 1 ML VIAL SQ SCH (21:00)
[2022-11-23 03:20] LABS: Absolute Lymphocytes (CBC) 1.9 K/uL (0.7-4.9); Hematocrit 32.9 % (36.0-45.0); Lymphocytes % 29.4 % (15.3-44.8); MCV 84.2 fL (80-100); MPV 7.4 fL (7.6-11.3); RBC Red Blood Cell Count 3.91 M/uL (3.86-4.86)
[2022-11-23 03:59] LABS: Potassium 3.9 mEq/L (3.5-5.1)
--- NOTE | 2022-11-23 06:45 | P.PN ---
Date of Service: 11/23/22 Subjective: chronic knee pain, +general joint pain; feels slightly better denies trouble urinating, no nausea/diarrhea/vomiting afebrile ROS: 10 point ROS as noted above, otherwise negative Physical Exam: GEN: Alert, oriented, NAD HEENT: Normal conjunctiva, sclera anicteric CV: Regular rate and rhythm, no edema Pulm: Non-labored respirations on room air ABD: Soft, nontender, nondistended MSK: No joint swelling/erythema Neuro: Normal speech, flat affect vitals reviewed Problem List: UTI POA Acute metabolic encephalopathy, resolved ESRD DM2 with neuropathy Hypertension Rheumatoid arthritis Hyperlipidemia Insomnia Sleep apnea COPD History of DVT\IA UTI POA Acute metabolic encephalopathy, resolved CT head unremarkable for any acute intracranial abnormality UA(11/23): +Trace blood, 500 LE, +RBC, +WBC, +many yeast Blood cultures(11/22): pending Urine cultures(11/22): pending Continue Rocephin(11/21-) Continue Diflucan (11/23-) PT consult h/o UTIs patient denies any change in urinary habits, no dysuria ESRD Patient noncompliant with dialysis - recently missed Dialysis scheduled for today Nephrology consulted. DM2 with neuropathy sliding scale insulin. hold off on gabapentin pending resolution of AMS. Hypertension. Stable. Continue home medications. Rheumatoid arthritis. PRN pain meds Hyperlipidemia. Continue statin. Insomnia. Continue melatonin. Sleep apnea. Continue supportive care. COPD. Stable. Continue home medication History of DVT\IA. Continue aspirin, statin and Eliquis. VTE: Home eliquis Code: Full Dispo: ?SNF Patient lives . Family concerned patient is unable to take care of herself. CM consulted Per chart review, patient previously brought up hospice. She was reportedly interested in hospice while her family was not. She was discharged home within the last week 11/23 - Briefly discussed hospice with patient, states she met with someone for information in the last 2 days, and spoke with her family who told the patient to take a few days to consider all options
[2022-11-23] MEDS: INSULIN -REGULAR HUMAN 50 UNIT/0.5 ML ML SQ SCH ×4 (07:30→21:00)
[2022-11-23] MEDS ORDERED: ALBUMIN HUMAN 25% 100 ML IV ONE (08:00)
[2022-11-23] MEDS: APIXABAN 2.5 MG TABLET PO SCH ×2 (08:33→21:02)
[2022-11-23] MEDS: CEFTRIAXONE 1,000 MG in NA CHLORIDE 0.9% 50 ML IVPB SCH (08:34)
[2022-11-23] MEDS ORDERED: FLUCONAZOLE 100 MG TAB PO SCH (09:00)
[2022-11-23 10:08] LABS: Specific Gravity 1.011 (1.005-1.030); Urine Bacteria <20 /HPF (<20); Urine Bilirubin NEGATIVE (Negative); Urine Blood Trace (Negative); Urine Clarity Extremely Turbid (Clear); Urine Color Light-Yellow (Yellow); Urine Glucose NEGATIVE (Negative); Urine Mucus Slight /HPF (None Seen); Urine Protein 1+ (Negative); Urine Urobilinogen Normal (Normal); Urine WBC Clump Occasional /HPF (None Seen)
--- NOTE | 2022-11-23 11:19 | P.CNS ---
Date of Consult: 11/23/22 Reason for Consult: ESRD, missed dialysis Requesting Physician: Carola Yoon Chief Complaint: AMS History of Present Illness: Pt is a 72-year-old Caucacian female with past medical history of ESRD on HD TTS at [facility] under Dr. 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 Pt again referred to ER yesterday it appears by family in the setting of weakness, fatigue and other. Pt has not dialyzed in several days. Pt denies dyspnea or abd pain or N/V. UA remains abnormal despite apparent treatment for presumed UTI on the last admission although urine culture was negative. Allergies No Known Allergies Allergy (Verified 01/02/22 02:33) Home Medications: Furosemide [Lasix] 80 mg PO BID* 04/14/20 Isosorbide Mononitrate [Isosorbide Mononitrate ER] 60 mg PO DAILY 04/14/20 Sevelamer Carbonate [Renvela*] 2 tab PO TIDWM 01/02/22 Apixaban [Eliquis *] 2.5 mg PO BID #30 tab 05/08/22 Gabapentin 100 mg PO BID 07/19/22 Midodrine HCl 5 mg PO BID 07/19/22 Apixaban [Eliquis *] 2.5 mg PO BID #60 tab 11/18/22 Cefdinir [Cefdinir*] 300 mg PO BID #14 cap 11/18/22 Docusate [Colace Cap*] 100 mg PO BID #60 cap 11/18/22 Nepro Shake [Nepro*] 237 ml PO TID #90 can 11/18/22 - Past Medical/Surgical History Diabetic: Yes -: Diabetes mellitus type 2-insulin dependent -: Rheumatoid arthritis -: Hypertension -: Hyperlipidemia -: Chronic congestive heart failure-unknown EF -: ESRD on HD -: CAD -: L ankle fusion -: hysterectomy -: Dialysis catheter placement and removal -: Cholecystectomy -: pacemaker/defibrillator Psychosocial/ Personal History: Patient lives with her - Social History Smoking Status: Unknown if ever smoked Alcohol use: No CD- Drugs: No Caffeine use: Yes Place of Residence: Home Review of Systems General: Weakness, As per HPI Respiratory: As per HPI Cardiovascular: Other (Soft BP), As per HPI Gastrointestinal: Other (Low appetite) Genitourinary: Other (Abnormal UA), As per HPI Musculoskeletal: Other (Weakness) Integumentary: Unremarkable Neurological: Weakness, As per HPI Physical Examination Temp Pulse Resp BP Pulse Ox 97 F 80 12 111/53 L 98 11/23/22 08:00 11/23/22 08:00 11/23/22 08:00 11/23/22 08:00 11/23/22 08:00 General: Cooperative, Other (Flat affect, elderly, conversive) HEENT: Atraumatic, Normocephalic Neck: Supple Respiratory: Clear to auscultation bilaterally, Normal air movement Cardiovascular: Regular rate/rhythm, Normal S1 S2 Gastrointestinal: Soft and benign, Non-distended, No rebound, No guarding Musculoskeletal: No swelling, No contractures Integumentary: No rashes Neurological: Abnormal affect (Slow to respond but answers clearly, converses, no tremors or myoclonus noted) Laboratory Data (last 24 hrs) 11/22/22 11:40: Phosphorus 5.1 H, Magnesium 2.3 11/22/22 11:40: Sodium 135 L, Potassium 4.2, BUN 58 H, Creatinine 5.14 H, Glucose 175 H 11/22/22 11:40: WBC 9.20, Hgb 11.1 L, Hct 35.5 L, Plt Count 395 Conclusions/Impression: A/P) 1. ESRD 2nd to presumed HTN/DM on HD for several years per reports, last HD several days again, missed OP HD, HD today to make up 2. Azotemia without overt uremia but will clear with dialysis and monitor closely 3. Hypotension, unspecified -soft BP, to avoid hypotension on HD will restart midodrine pt may have been taking at home along with PRN Albumin 4. Abnormal findings in urine, unspecified. yeast noted on UA, will place on renally dosed Fluconazole but recommend shorter course given drug interactions 5. MDD per history and pt acknowledges depression, recurrent hospitalizations, possible non compliance with meds/treatments, discussed casew with Dr. Ellison, will review further with pt and family and will involve CM in referral for SNF/other if pt agreeable. Ti Glover MD, AZRA
[2022-11-23] MEDS: MIDODRINE HCL 5 MG TABLET PO SCH ×2 (11:30→21:02)
--- NOTE | 2022-11-23 12:31 | EKG ---
Test Date: 2022-11-22 Test Time: 12:16:46 Rehabilitation Technician: MARIA DOLORES MEASUREMENT RESULTS: Intervals: Rate: 82 NH: QRSD: 148 QT: 462 QTc: 539 [place]: P: NH: QRS: -83 T: 49 INTERPRETIVE STATEMENTS: Atrial fibrillation Left axis deviation Nonspecific intraventricular block Lateral infarct, age undetermined T wave abnormality, consider anterior ischemia or digitalis effect Abnormal ECG Electronically Signed On 11-23-22 12:30:42 CDT by Lico Wilkins
--- NOTE | 2022-11-23 12:32 | EKG ---
Test Date: 2022-11-22 Test Time: 12:16:04 Payroll Director: MARIA DOLORES MEASUREMENT RESULTS: Intervals: Rate: 83 [place]: QRSD: 142 QT: 460 QTc: 540 [place]: P: [place]: QRS: -83 T: 45 INTERPRETIVE STATEMENTS: Atrial fibrillation Right bundle branch block Left anterior fascicular block Bifascicular block Lateral infarct, age undetermined Abnormal ECG Compared to ECG 11/16/2022 21:32:19 Right bundle-branch block now present Left anterior fascicular block now present Bifascicular block now present Myocardial infarct finding now present Ventricular-paced complex(es) or rhythm no longer present Electronically Signed On 11-23-22 12:31:22 CDT by Lico Wilkins
[2022-11-23 13:48] LABS: Hepatitis B surface AG Interp. Nonreactive (Nonreactive)
[2022-11-24 03:07] LABS: Absolute Lymphocytes (CBC) 1.5 K/uL (0.7-4.9); Hematocrit 34.4 % (36.0-45.0); MCV 84.5 fL (80-100); MPV 7.4 fL (7.6-11.3); RBC Red Blood Cell Count 4.07 M/uL (3.86-4.86)
[2022-11-24 03:23] LABS: Magnesium 2.1 mg/dL (1.6-2.4); Potassium 4.1 mEq/L (3.5-5.1)
--- NOTE | 2022-11-24 07:02 | P.PN ---
Date of Service: 11/24/22 Subjective: doing okay, feels weak needing mod assistance with transfers/mobility per PT ambulated ~20 ft before getting fatigued yesterday askin afebrile ROS: 10 point ROS as noted above, otherwise negative Physical Exam: GEN: Alert, oriented, NAD HEENT: Normal conjunctiva, sclera anicteric CV: Regular rate and rhythm, no edema Pulm: Non-labored respirations on room air ABD: Soft, nontender, nondistended MSK: No joint swelling/erythema Neuro: Normal speech, flat affect vitals reviewed Problem List: UTI Acute metabolic encephalopathy, resolved ESRD DM2 with neuropathy Hypertension Rheumatoid arthritis Hyperlipidemia Insomnia Sleep apnea COPD History of DVT\[place] UTI Acute metabolic encephalopathy, resolved present on admission UA(11/23): +Trace blood, 500 LE, +RBC, +WBC, +many yeast Blood cultures(11/22): NGTD Urine cultures(11/22): pending continue empiric rocephin (11/21-) Continue Diflucan (11/23-) PT consult needing mod assistance with transfers/mobility ambulated ~20 ft before getting fatigued yesterday h/o UTIs patient denies any change in urinary habits, no dysuria asking about SNF ESRD Patient recently missed dialysis Nephrology consulted. DM2 with neuropathy sliding scale insulin . Hypertension. Stable. Continue home medications. Rheumatoid arthritis. PRN pain meds Hyperlipidemia. Continue statin. Insomnia. Continue melatonin. Sleep apnea. Continue supportive care. COPD. Stable. Continue home medication History of DVT\[place]. Continue aspirin, statin and Eliquis. VTE: Home eliquis Code: Full Dispo: ?SNF Patient lives . Family concerned patient is unable to take care of herself. CM consulted Per chart review, patient previously brought up hospice. She was reportedly interested in hospice while her family was not. She was discharged home within the last week 11/23 - Briefly discussed hospice with patient, states she met with someone for information in the last 2 days, and spoke with her family who told the patient to take a few days to consider all options 11/24 - asking about SNF, she would like to improve her functional status and continue with dialysis / treatment
[2022-11-24] MEDS: INSULIN -REGULAR HUMAN 50 UNIT/0.5 ML ML SQ SCH ×4 (07:30→22:23)
[2022-11-24] MEDS: FLUCONAZOLE 100 MG TAB PO SCH (08:36)
[2022-11-24] MEDS: MIDODRINE HCL 5 MG TABLET PO SCH ×2 (08:36→20:18)
[2022-11-24] MEDS: CEFTRIAXONE 1,000 MG in NA CHLORIDE 0.9% 50 ML IVPB SCH (08:36)
[2022-11-24] MEDS: APIXABAN 2.5 MG TABLET PO SCH ×2 (08:36→20:18)
[2022-11-24] MEDS: ALBUMIN HUMAN 25% 100 ML IV ONE ×2 (09:39→10:45)
[2022-11-24 12:33] LABS: Hepatitis B Surface Ab - Quant 36.18 mIU/mL (<8.0)
--- NOTE | 2022-11-24 21:07 | P.PN ---
Date of Service: 11/24/22 Vital Signs Temp Pulse Resp BP Pulse Ox 97.0 F 71 18 98/47 L 95 11/24/22 20:00 11/24/22 20:00 11/24/22 20:00 11/24/22 20:00 11/24/22 20:00 Medications Acetaminophen (Acetaminophen 325 Mg Tablet) 650 mg PO Q6H PRN PRN Reason: TEMP > 100' F Hydrocodone Bitart/Acetaminophen (Hydrocodone/Apap 5/325 Mg Tab) 1 tab PO Q6H PRN PRN Reason: Pain scale 5-7 (Moderate) Apixaban (Apixaban 2.5 Mg Tablet) 2.5 mg PO BID [facility] Last Admin: 11/24/22 20:18 Dose: 2.5 mg Fluconazole (Fluconazole 100 Mg Tab) 100 mg PO DAILY [facility]; Protocol Stop: 11/25/22 09:01 Last Admin: 11/24/22 08:36 Dose: 100 mg Glucagon (Glucagon 1 Mg/Vial) 1 mg IM 1X PRN PRN Reason: HYPOGLYCEMIA Heparin Sodium (Porcine) (Heparin 1,000 Unit/Ml Vial) 2,000 unit IV EVERY HD PRN PRN Reason: Prevent lines Clotting Last Admin: 11/24/22 10:35 Dose: 2,000 unit Dextrose (Dextrose 10% Water Iv Soln.) 125 mls @ 0 mls/hr IV PRN PRN; Protocol PRN Reason: HYPOGLYCEMIA Ceftriaxone Sodium 1,000 mg/ (Sodium Chloride) 50 mls @ 100 mls/hr IVPB DAILY [facility]; Protocol Last Admin: 11/24/22 08:36 Dose: 50 mls Insulin Human Regular (Insulin -Regular Human 50 Unit/0.5 Ml Ml) 0 unit SQ ACHS [facility]; Protocol Last Admin: 11/24/22 16:12 Dose: Not Given Melatonin (Melatonin 5 Mg Tablet) 10 mg PO BEDTIME PRN PRN PRN Reason: INSOMNIA Midodrine (Midodrine Hcl 5 Mg Tablet) 5 mg PO BID [facility] Last Admin: 11/24/22 20:18 Dose: 5 mg Ondansetron HCl (Ondansetron 4 Mg/2 Ml Vial) 4 mg IV Q6HP PRN PRN Reason: NAUSEA / VOMITING Sodium Chloride (Flush Normal Saline 10 Ml) 10 ml IV BID [facility] Last Admin: 11/24/22 20:18 Dose: 10 ml Microbiology Results 11/22/22 13:13 Clean Catch Urine Mobile Count - Preliminary >100,000 CFU/ML. 11/22/22 13:13 Clean Catch Urine - Preliminary MIXED MACARIO. 11/22/22 14:12 Blood - Blood Aerobic Blood Culture - Preliminary No growth in 24 hours. 11/22/22 14:12 Blood - Blood Anaerobic Blood Culture - Preliminary No growth in 24 hours. Assessment/ Plan: Nephrology No dyspnea No chest pain No acute events overnight Vitals, medications, blood work and imaging reviewed in the chart. NAD. NCAT. MMM. Neck supple. Normal respiratory effort. RRR. Abd ND. No C/C. LE Edema. No rash. AAO. Normal speech ESRD on HD TTS -Acute HD today -Seen and examined on HD Hyponatremia -Acute HD Anemia in CKD -Monitor H&H -Retacrit prn Case reviewed with Dr. Ellison
--- NOTE | 2022-11-25 06:47 | P.PN ---
Date of Service: 11/25/22 Subjective: 3 episodes of watery diarrhea today, +vomiting, +nausea now reports this has been occurring at home intermittently over the past ~4 weeks needing significant assist from 1-2 therapists for mobility per PT otherwise no new / worsening problems ROS: 10 point ROS as noted above, otherwise negative Physical Exam: GEN: Alert, oriented, appears fatigued HEENT: Normal conjunctiva, sclera anicteric CV: Regular rate and rhythm, no edema Pulm: Non-labored respirations on room air ABD: Soft, nontender, nondistended Neuro: Normal speech, flat affect vitals reviewed Problem List: UTI Acute metabolic encephalopathy, resolved ESRD on HD TTS Nausea and vomiting Diarrhea DM2 with neuropathy Hypertension Rheumatoid arthritis Hyperlipidemia Insomnia Sleep apnea COPD History of DVT\[place] UTI Acute metabolic encephalopathy, resolved present on admission UA(11/23): +Trace blood, 500 LE, +RBC, +WBC, +many yeast Blood cultures(11/22): NGTD Urine cultures(11/22): +yeast dc'd rocephin 7.7; received (11/21-11/24) no bacteria on cultures Received Diflucan (11/23-11/25) PT consult needing mod assistance with transfers/mobility ambulated ~20 ft before getting fatigued yesterday patient denies any change in urinary habits, no dysuria ESRD on HD TTS Patient recently missed dialysis Nephrology consulted. Nausea and vomiting Diarrhea 3 episodes of watery diarrhea today, +vomiting, +nausea now reports this has been occurring at home intermittently over the past ~4 weeks add protonix, probiotic - 11/25 DM2 with neuropathy sliding scale insulin Hypertension. Stable. Continue home medications. Rheumatoid arthritis. PRN pain meds Hyperlipidemia. Continue statin. Insomnia. Continue melatonin. Sleep apnea. Continue supportive care. COPD. Stable. Continue home medication History of DVT\[place]. Continue aspirin, statin and Eliquis. VTE: Home eliquis Code: Full Dispo: SNF, ~1-2 days Patient lives . Family concerned patient is unable to take care of herself. CM consulted Per chart review, patient previously brought up hospice. She was reportedly interested in hospice while her family was not. She was discharged home within the last week 11/23 - Briefly discussed hospice with patient, states she met with someone for information in the last 2 days, and spoke with her family who told the patient to take a few days to consider all options 11/24 - asking about SNF, she would like to improve her functional status and continue with dialysis / treatment
[2022-11-25 06:56] LABS: Albumin 2.7 g/dL (3.4-5.0); Phosphorus 3.3 mg/dL (2.5-4.9)
[2022-11-25 06:57] LABS: Magnesium 1.9 mg/dL (1.6-2.4); Potassium 4.2 mEq/L (3.5-5.1)
[2022-11-25] MEDS: INSULIN -REGULAR HUMAN 50 UNIT/0.5 ML ML SQ SCH ×4 (07:30→21:19)
[2022-11-25] MEDS: APIXABAN 2.5 MG TABLET PO SCH ×2 (08:58→21:18)
[2022-11-25] MEDS: MIDODRINE HCL 5 MG TABLET PO SCH ×2 (08:58→21:18)
[2022-11-25] MEDS: FLUCONAZOLE 100 MG TAB PO SCH (08:59)
[2022-11-25] MEDS: LACTOBACILLUS/ACIDOPHILUS TAB PO SCH ×2 (09:18→21:00)
[2022-11-25] MEDS: PANTOPRAZOLE 40MG TABLET PO SCH (10:35)
[2022-11-25 16:11] VITALS: O2SAT 96
--- NOTE | 2022-11-25 16:51 | P.PN ---
(S) Delayed entry note, pt seen earlier this AM, reporting some GI symptoms, otherwise tolerated HD sessions on Mon and . (O) Vitals reviewed in the EMR General: Cooperative, Other (Flat affect, elderly, conversive) HEENT: Atraumatic, Normocephalic Neck: Supple Respiratory: Clear to auscultation bilaterally, Normal air movement Cardiovascular: Regular rate/rhythm, Normal S1 S2 Gastrointestinal: Soft and benign, Non-distended, No rebound, No guarding Musculoskeletal: No swelling, No contractures Integumentary: No rashes Neurological: Abnormal affect (Slow to respond but answers clearly, converses, no tremors or myoclonus noted) Laboratory Data (last 24 hrs) Reviewed Conclusions/Impression: A/P) 1. ESRD 2nd to presumed HTN/DM on HD for several years per reports, dialyzed Mon and . Next HD tmrw to maintain OP TTS schedule. 2. Azotemia cleared with dialysis, metab profile acceptable. 3. Hypotension, unspecified -soft BP, to avoid hypotension on HD did restart midodrine pt may have been taking at home along with PRN Albumin 4. Abnormal findings in urine, unspecified. yeast noted on UA and culture, placed on renally dosed Fluconazole but recommended shorter course given drug interactions 5. MDD per history and pt acknowledged some depression, recurrent hospitalizations, possible non compliance with meds/treatments, discussed case with Dr. Ellison, will review further with pt and family and did involve CM in referral for SNF/other which is in the works Ti Glover MD, AZRA
[2022-11-26] MEDS: PANTOPRAZOLE 40MG TABLET PO SCH (06:14)
[2022-11-26 06:30] LABS: Absolute Lymphocytes (CBC) 1.5 K/uL (0.7-4.9); Hematocrit 35.2 % (36.0-45.0); Lymphocytes % 23.3 % (15.3-44.8); MCV 84.7 fL (80-100); MPV 7.7 fL (7.6-11.3); RBC Red Blood Cell Count 4.16 M/uL (3.86-4.86)
--- NOTE | 2022-11-26 06:45 | P.PN ---
Date of Service: 11/26/22 Subjective: doing okay, tired no new / worsening problems no nausea / vomiting / diarrhea dialysis later today ROS: 10 point ROS as noted above, otherwise negative Physical Exam: GEN: Alert, oriented, appears fatigued HEENT: Normal conjunctiva, sclera anicteric CV: Regular rate and rhythm, no edema Pulm: Non-labored respirations on room air ABD: Soft, nontender, nondistended Neuro: Normal speech, flat affect vitals reviewed Problem List: UTI Acute metabolic encephalopathy, resolved ESRD on HD TTS Nausea and vomiting Diarrhea DM2 with neuropathy Hypertension Rheumatoid arthritis Hyperlipidemia Insomnia Sleep apnea COPD History of DVT\NC UTI Acute metabolic encephalopathy, resolved present on admission UA(11/23): +Trace blood, 500 LE, +RBC, +WBC, +many yeast Blood cultures(11/22): NGTD Urine cultures(11/22): +yeast dc'd rocephin 7.7; received (11/21-11/24) no bacteria on cultures Received Diflucan (11/23-11/25) PT consult needing mod assistance with transfers/mobility ambulated ~20 ft before getting fatigued yesterday patient denies any change in urinary habits, no dysuria ESRD on HD TTS Patient recently missed dialysis Nephrology consulted. Nausea and vomiting Diarrhea 3 episodes of watery diarrhea today, +vomiting, +nausea now reports this has been occurring at home intermittently over the past ~4 weeks add protonix, probiotic - 11/25 DM2 with neuropathy sliding scale insulin Hypertension. Stable. Continue home medications. Rheumatoid arthritis. PRN pain meds Hyperlipidemia. Continue statin. Insomnia. Continue melatonin. Sleep apnea. Continue supportive care. COPD. Stable. Continue home medication History of DVT\NC. Continue aspirin, statin and Eliquis. VTE: Home eliquis Code: Full Dispo: SNF, ~1-2 days Patient lives . Family concerned patient is unable to take care of herself. CM consulted Per chart review, patient previously brought up hospice. She was reportedly interested in hospice while her family was not. She was discharged home within the last week 11/23 - Briefly discussed hospice with patient, states she met with someone for information in the last 2 days, and spoke with her family who told the patient to take a few days to consider all options 11/24 - asking about SNF, she would like to improve her functional status and continue with dialysis / treatment
[2022-11-26 06:55] LABS: Albumin 2.7 g/dL (3.4-5.0); Phosphorus 3.9 mg/dL (2.5-4.9); Potassium 4.2 mEq/L (3.5-5.1)
[2022-11-26] MEDS: INSULIN -REGULAR HUMAN 50 UNIT/0.5 ML ML SQ SCH ×3 (07:30→16:30)
[2022-11-26 07:59] VITALS: TEMP 97
[2022-11-26] MEDS: LACTOBACILLUS/ACIDOPHILUS TAB PO SCH (08:30)
[2022-11-26] MEDS: MIDODRINE HCL 5 MG TABLET PO SCH (08:30)
[2022-11-26] MEDS: APIXABAN 2.5 MG TABLET PO SCH (08:30)
--- NOTE | 2022-11-26 13:17 | P.DS ---
Admission Date: 11/22/22 Discharge Date: 11/26/22 Disposition: ROUTINE DISCHARGE Reason for Admission: AMS Consultations: Nephrology - Dr. Marie / Dr. Glover Brief History of Present Illness: 72yo F, PMH: COPD, DM 2, ESRD, MD, hypertension, insomnia, rheumatoid arthritis, sleep apnea Patient who presents with complaint of altered mental status. Patient was found altered by family. Patient lives alone. Patient was discharged from the hospital 4 days ago after being treated for AMS and UTI. Patient alert and oriented x3 but intermittently confused at time of assessment. Patient reported associated signs and symptoms of fatigue, weakness and generalized malaise. Patient reported that her last dialysis was while she was at the hospital. Patient denies any other signs and symptoms. Symptoms are aggravated or relieved by nothing. Hospital Course: Problem List: UTI Acute metabolic encephalopathy, resolved ESRD on HD TTS Nausea and vomiting Diarrhea DM2 with neuropathy Hypertension Rheumatoid arthritis Hyperlipidemia Insomnia Sleep apnea COPD History of DVT\MD Patient presented with altered mental status. Patient was recently treated for a UTI ~4 days prior to admission. Blood cultures were without growth, Urine culture grew yeast. She received empiric Rocephin and Diflucan. Rocephin discontinued after no bacteria grew in cultures. Patient reported no dysuria / change in urinary habits Nephrology was consulted. Patient underwent dialysis was able to receive acute HD to make up for her missed days. Patient remained afebrile without leukocytosis and her mentation quickly resolved upon admission. Blood pressure was borderline / low on admission and improved to normal range with 120-130systolic. Her anti-hypertensives were held, and she is to continue to hold. If / when blood pressure increases / stays high consistently, to restart on imdur. Discharged to SNF to continue to work with PT/OT and improve strength prior to going home New / change in prescriptions: stop imdur, stop lasix per nephrology Follow up: PCP 3-5 days Nephrology within 1-2 weeks Physical Exam: GEN: Alert, oriented, NAD, fatigued appearing HEENT: Normal conjunctiva, sclera anicteric CV: Regular rate and rhythm, no edema Pulm: Non-labored respirations on room air ABD: Soft, nontender, nondistended Neuro: Normal speech, flat affect Vital Signs/Physical Exam: Temp Pulse Resp BP Pulse Ox 97.0 F 79 16 137/54 L 98 11/26/22 07:58 11/26/22 07:58 11/26/22 07:58 11/26/22 07:58 11/26/22 07:58 Laboratory Data at Discharge: WBC 6.30 thou/uL (4.3-10.9) 11/26/22 05:34 Hgb 11.2 g/dL (12.0-15.0) L 11/26/22 05:34 Hct 35.2 % (36.0-45.0) L 11/26/22 05:34 Plt Count 343 thou/uL (152-406) 11/26/22 05:34 Sodium 135 mEq/L (136-145) L 11/26/22 05:34 Potassium 4.2 mEq/L (3.5-5.1) 11/26/22 05:34 BUN 31 mg/dL (7-18) H 11/26/22 05:34 Creatinine 3.25 mg/dL (0.55-1.02) H 11/26/22 05:34 Glucose 100 mg/dL (74-106) 11/26/22 05:34 Phosphorus 3.9 mg/dL (2.5-4.9) 11/26/22 05:34 Magnesium 2.0 mg/dL (1.6-2.4) 11/26/22 05:34 Triglycerides 53 mg/dL (<150) 11/23/22 03:06 Cholesterol 102 mg/dL (<200) 11/23/22 03:06 HDL Cholesterol 38 mg/dL (40-60) L 11/23/22 03:06 Cholesterol/HDL Ratio 2.68 11/23/22 03:06 Home Medications: Sevelamer Carbonate [Renvela*] 2 tab PO TIDWM 01/02/22 Apixaban [Eliquis *] 2.5 mg PO BID #30 tab 05/08/22 Gabapentin 100 mg PO BID 07/19/22 Midodrine HCl 5 mg PO BID 07/19/22 Apixaban [Eliquis *] 2.5 mg PO BID #60 tab 11/18/22 Nepro Shake [Nepro*] 237 ml PO TID #90 can 11/18/22 Physician Discharge Instructions: Patient presented with altered mental status. Patient was recently treated for a UTI ~4 days prior to admission. Blood cultures were without growth, Urine culture grew yeast. She received empiric Rocephin and Diflucan. Rocephin discontinued after no bacteria grew in cultures. Patient reported no dysuria / change in urinary habits Nephrology was consulted. Patient underwent dialysis was able to receive acute HD to make up for her missed days. Patient remained afebrile without leukocytosis and her mentation quickly resolved upon admission. Blood pressure was borderline / low on admission and improved to normal range with 120-130systolic. Her anti-hypertensives were held, and she is to continue t o hold. If / when blood pressure increases / stays high consistently, to restart on imdur. Discharged to SNF to continue to work with PT/OT and improve strength prior to going home New / change in prescriptions: stop imdur, stop lasix per nephrology Follow up: PCP 3-5 days Nephrology within 1-2 weeks Followup: Manuel Marie DO [Primary Care Provider] - Time spent managing pt's care (in minutes): 45
--- NOTE | 2022-11-26 13:25 | P.PN ---
(S) Pt seen resting comfortably, GI symptoms reported yesterday better (O) Vitals reviewed in the EMR General: Cooperative, Other (Flat affect, elderly, conversive) HEENT: Atraumatic, Normocephalic Neck: Supple Respiratory: Clear to auscultation bilaterally, Normal air movement Cardiovascular: Regular rate/rhythm, Normal S1 S2 Gastrointestinal: Soft and benign, Non-distended, No rebound, No guarding Musculoskeletal: No swelling, No contractures Integumentary: No rashes Neurological: Abnormal affect (Slow to respond but answers clearly, converses, no tremors or myoclonus noted) Laboratory Data (last 24 hrs) Reviewed Conclusions/Impression: A/P) 1. ESRD 2nd to presumed HTN/DM on HD for several years per reports, dialyzed Mon and . Next HD today to maintain OP TTS schedule. 2. Azotemia cleared with dialysis, metab profile acceptable. 3. Hypotension, unspecified -soft BP intially, to avoid hypotension on HD did restart midodrine pt may have been taking at home along with PRN Albumin 4. Abnormal findings in urine, unspecified. yeast noted on UA and culture, placed on renally dosed Fluconazole but recommended shorter course given drug interactions. Has since completed course 5. MDD per history and pt acknowledged some depression, recurrent hospitalizations, possible non compliance with meds/treatments, discussed case with Dr. Ellison, will review further with pt and family and did involve CM in referral for SNF/other which is in the works Ti Glover MD, [facility]
[2022-11-26 16:18] VITALS: BP 144/46
== END 2022-11-26 19:20 | disposition home or self-care (01) | DRG 757 ==
LOC: ER 11:14 → ERHOLD 14:43 → 2ND 16:03
PROVIDERS: ADMIT Hospitalist; ATTEND Hospitalist
PROC: 5A1D70Z Performance of Urinary Filtration, Intermittent, Less than 6 Hours Per Day (ICD-10-PCS; principal; 2022-11-22)
DX: B37.49 Other urogenital candidiasis (principal); G93.41 Metabolic encephalopathy; N18.6 End stage renal disease; E87.1 Hypo-osmolality and hyponatremia; I13.2 Hypertensive heart and chronic kidney disease with heart failure and with stage 5 chronic kidney disease, or end stage renal disease; I50.9 Heart failure, unspecified; E11.22 Type 2 diabetes mellitus with diabetic chronic kidney disease; E11.40 Type 2 diabetes mellitus with diabetic neuropathy, unspecified; D63.1 Anemia in chronic kidney disease; J44.9 Chronic obstructive pulmonary disease, unspecified; E78.5 Hyperlipidemia, unspecified; G47.30 Sleep apnea, unspecified; G89.29 Other chronic pain; M25.569 Pain in unspecified knee; F32.9 Major depressive disorder, single episode, unspecified; G47.00 Insomnia, unspecified; M06.9 Rheumatoid arthritis, unspecified; I25.10 Atherosclerotic heart disease of native coronary artery without angina pectoris; I25.2 Old myocardial infarction; Z60.2 Problems related to living alone; Z99.2 Dependence on renal dialysis; Z79.4 Long term (current) use of insulin; Z79.01 Long term (current) use of anticoagulants; Z79.899 Other long term (current) drug therapy; Z90.710 Acquired absence of both cervix and uterus; Z95.810 Presence of automatic (implantable) cardiac defibrillator; Z86.718 Personal history of other venous thrombosis and embolism; Z91.158 Patient's noncompliance with renal dialysis for other reason; Z91.148 Patient's other noncompliance with medication regimen for other reason
CPT/HCPCS: 36415; 70450; 71045; 80048; 80061; 80069; 81001; 82947; 83605; 83735; 84100; 84439; 84443; 84484; 85025; 86706; 87040; 87086; 87088; 87340; 90935; 93005; 96374; 96375; 97110; 97116; 97161; 97530; 99285; J0696; J1644; J1815; J2405; P9047

== ENCOUNTER 2022-12-23 16:46 | Inpatient (IN) | payer OTHER ==
--- OUTSIDE RECORDS SUMMARY | 2022-12-23 16:57 | XMS REPORT | Continuity of Care Document ---
:1950 Author Organization [facility] t Address [address] [facility]. [address] [place] [address] Care Team Providers Name Role Phone Zulema Donald DO Primary Care Physician [id number] Attending Clinician Unavailable Greg Fuentes Attending Clinician Unavailable Anirudh Philippe Rahil Attending Clinician Unavailable Doctor Unassigned, [place] Attending Clinician Unavailable Luc Alvarez Attending Clinician Alannah Renner MD Attending Clinician Annalee Bey MD Attending Clinician Mauro Mendoza MD Attending Clinician ANNALEE BEY Attending Clinician Unavailable ALANNAH RENNER Attending Clinician Unavailable Trinidad Menard MD Attending Clinician Corrine Osuna MD Attending Clinician Natasha HOLLIDAY, Edwin Toribio Attending Clinician [phone] John HOLLIDAY, Shanon Vidal Attending Clinician [phone] Tim HOLLIDAY, Tammy Thompson Attending Clinician Armen [...] Clinician Unavailable SARAI SANDRA Attending Clinician Unavailable [id number] Admitting Clinician Unavailable Radha Cabrera Admitting Clinician Unavailable Anirudh Philippe Rahil Admitting Clinician Unavailable SHIRLEY PARKS NKHOWARD Admitting Clinician Unavailable CORRINE OSUNA Admitting Clinician Unavailable TAMMY DUMONT Admitting Clinician Unavailable Michaela Admitting Clinician Unavailable MD CORRINE OSUNA Admitting Clinician Unavailable SARAI SANDRA Admitting Clinician Unavailable Payers Payer Name Policy Type Policy Number Effective Date Expiration Date S gus [facility] [id number] 2021 (NON-CONTRACTED) 00:00:00 [facility] [id number] 2021 [facility] 00:00:00 [facility] [id number] [facility] - [id number] [facility] (O) Problems Condition Condition Condition Status Onset Resolution Last Treating Co mments Source Name Details Category Date Date Treatment Clinician Date Complicati Complicati Disease Active [facility] associated [facility]: Me dical with with 00 Center dialysis dialysis catheter catheter Diarrhea Diarrhea Disease Active Metho di 09-16 st 00:00: Hospita 00 l Chronic Chronic Disease Active [facility] vomiting vomiting 24 st 00:00: Hospita 00 l Clostridiu Clostridiu [...] M ethodi on of on of 05-22 st vascular vascular 00:00: Hospit a access for access for 00 l dialysis dialysis Dehydratio Dehydratio Disease Active M ethodi n n 10-25 st 00:00: Hospita 00 l Hypoglycem Hypoglycem Disease Active M ethodi ia ia 10-25 st 00:00: Hospita 00 l Edema of Edema [...] 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 [address] st , initial , initial 00:00: [facility] encounter encounter 00 l Left-sided Left-sided Disease Active 2018-05 M ethodi chest pain chest pain 1 st 00:00: Hospita 00 l Altered Altered Disease Active 2018-05 [facility] mental mental 014 st status status 00:00: Hospita 00 l [...] Pyogenic Disease Active Metho di arthritis arthritis 923 st of left of left 00:00: Hospita shoulder shoulder 00 l region region Weakness Weakness Disease Active 2017-0 Metho di 5-12 st 00:00: Hospita 00 l 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 follows with Dr. Ngo in [place] Neuropathy Neuropathy Disease Active Overview : Univers Formattin ity of g of this [place] note Medical might be Branch different from the original. in feet and legs Hyperchole Hyperchole Disease Active Overview : Univers steremia steremia Formattin ity of g of this [place] note Medical might be Branch different from the original. follows with Dr. Higuera HTN HTN Disease Active Overview: Univer s (hypertens (hypertens Formattin ity of ion) ion) g of this [place] note Medical might be Branch different from the original. follows with Dr. Higuera Atrial Atrial Disease Active Overview: [facility] s fibrillati fibrillati Formattin ity of on on g of this [place] note Medical might be Branch different from the original. follows with Dr. Higuera Allergies, Adverse Reactions, Alerts Allergy Allergy Status Severity Reaction(s) Onset Inactive Treating Comm ents Source Name Type Date Date Clinician No Known DA Active U [facility] Allergie 1-17 Clear s 00:00: An 00 [facility] Hydrocod Propensi Active GI "not an Metho di one ty to Intolerance 1-12 allergy, st adverse 00:00: but it Hospita reaction 00 upsets my l s to stomach drug every time I take it" No Known DA Active U [facility] Allergie 9-11 Clear s 00:00: An 00 [facility] NO KNOWN Allergy Active [facility] NO KNOWN Drug Active Univers ALLERGIE Class ity of S [facility] [place] [facility] Family History Family Member Diagnosis Comments Start Date Stop Date Source Natural sister Breast cancer [facility] Natural sister Cancer [facility] Natural brother Cancer [facility] Natural brother Colon cancer [facility] Natural brother [facility] Maternal grandmother Brain cancer [facility]aternal grandmother [facility] Natural mother Cancer [facility] Natural mother Uterine cancer Method [facility] Social History Social Habit Start Date Stop Date Quantity Comments Source History SDOH Anabaptism Alcohol Std Drinks Hospit al Gender identity [facility] Sexual orientation Method [facility] History of Social 2022-07-28 2022-07-[address] function 00:00:00 00:00:00 Hospital Tobacco use and 2022-01-08 2022-01-[address] [facility] k[facility] exposure 00:00:00 00:00:00 tobacco non-user Medical Center Alcohol intake 2021-09-14 2021-09-14 Current Anabaptism 00:00:00 00:00:00 non-drinker of Hospital alcohol (finding) History [facility] 2020-04-05 2020-04-05 1 Anabaptism Alcohol Frequency 00:00:00 00:00:00 Hospita l History [facility] 2020-04-05 2020-04-05 1 Anabaptism Alcohol Binge 00:00:00 00:00:00 Hospital Sex [birth year] At [birth year] An[facility]aptism 00:00:00 00:00:00 Hospital Smoking Status Start Date Stop Date Source Never smoked tobacco [facility] Medications Ordered Filled Start Stop Current Ordering Indication Dosage Frequency Signature Comments Components Source Medication Medication Date Date Medication? Clinician (SIG) Name Name aspirin 81 Yes 81mg QD Take [address] MG chewable 8-30 by mouth Luke s tablet 16:49: daily. [address] apixaban Yes 2.5mg Q.5D Take 2.5 [...] MG 16:49: mouth Medical tablet 03 nightly. [place] aspirin 81 0 Yes 81mg QD Take [address] MG chewable 8-30 by mouth Luke s tablet 16:49: daily. [address] apixaban Yes 2.5mg Q.5D Take 2.[address] (Eliquis) 8-30 mg by [facility] 2.5 mg Tab 16:49: mouth 2 Medi keira tablet 03 (two) Center times daily. pramipexole 2021-0 Yes 1mg QD Take [address] (MIRAPEX) 1 8-30 by mouth Luke s MG tablet 16:49: nightly. [facility] 03 [place] semaglutide 2021-0 Yes [address]25mg Inject [facility] [...] MG 16:49: mouth Medical tablet 03 nightly. [place] aspirin 81 2021-0 Yes 81mg QD Take [address] MG chewable 8-30 by mouth Luke s tablet 16:49: daily. [address] apixaban 2021-0 Yes 2.5mg Q.5D Take 2.[address] (Eliquis) 8-30 mg by [facility] 2.5 mg Tab 16:49: mouth 2 Medi [place] tablet 03 (two) Center times daily. pramipexole 2021-0 Yes 1mg QD Take [address] (MIRAPEX) 1 8-30 by mouth Luke s MG tablet 16:49: nightly. [address] semaglutide 0 Yes .25mg Inject CHI [...] MG 16:49: mouth Medical tablet 03 nightly. [place] aspirin 81 2021-0 Yes 81mg QD Take [address] MG chewable 8-30 by mouth Luke s tablet 16:49: daily. [address] apixaban 2021-0 Yes 2.5mg Q.5D Take 2.[address] (Eliquis) 8-30 mg by [facility] 2.5 mg Tab 16:49: mouth 2 Medi [place] tablet 03 (two) Center times daily. pramipexole 2021-0 Yes 1mg QD Take [address] (MIRAPEX) 1 8-30 by mouth Luke s MG tablet 16:49: nightly. [address] semaglutide 0 Yes .25mg Inject [facility] (Ozempic) 8-30 0.25 mg [facility]ukes 0.25 mg or 16:49: subcutaneo M edical 0.5 mg(2 03 usly every Cente r mg/1.5 mL) 7 days PnIj Every Monday . pantoprazol 2021-0 Yes 40mg QD Take [address] e 8-30 by mouth Lukes (PROTONIX) 16:49: daily. Medic al [address] [place] [address] tablet traZODone 2021-0 Yes 100mg QD Take [address] (DESYREL) 8-30 mg by [facility]ukes 100 MG 16:49: mouth Medical tablet 03 nightly. [place] aspirin 81 2021-0 Yes 81mg QD Take [address] MG chewable 8-30 by mouth Luke s tablet 16:49: daily. [address] apixaban 2021-0 Yes 2.5mg Q.5D Take 2.[address] (Eliquis) 8-30 mg by [facility]ukes 2.5 mg Tab 16:49: mouth 2 Medi [place] tablet 03 (two) Center times daily. pramipexole 2021-0 Yes 1mg QD Take [address] (MIRAPEX) 1 8-30 by mouth Luke s MG tablet 16:49: nightly. [address] semaglutide 2021-0 Yes .25mg Inject CHI [...] by mouth Luke s tablet 16:49: daily. [facility] 03 [place] apixaban 2021-0 Yes 2.5mg Q.5D Take 2.[address] (Eliquis) 8-30 mg by Lukes 2.5 mg Tab 16:49: mouth 2 Medi [place] tablet 03 (two) Center times daily. pramipexole 2021-0 Yes 1mg QD Take [address] (MIRAPEX) 1 8-30 by mouth Luke s MG tablet 16:49: nightly. Medi keira 03 [place] semaglutide 2021-0 Yes .25mg Inject [facility] [...] MG 16:49: mouth Medical tablet 03 nightly. [place] aspirin 81 2021-0 Yes 81mg QD Take [address] MG chewable 8-30 by mouth Luke s tablet 16:49: daily. [facility] 03 [place] apixaban 2021-0 Yes 2.5mg Q.5D Take 2.5 [...] 03 nightly. Center hydrALAZINE 2021- No 25mg Q.[id number] Take [address] (APRESOLINE - 08-30 [id number] by mouth 3 [facility] ) 25 MG 11:55: 00:00 3D (three) Medica l tablet 27 :00 times Center daily. budesonide 2021- No 3mg QD Take [address] (ENTOCORT - 08-30 by mouth [facility] EC) 3 mg [...] nightly. Med ical 27 :00 Center isosorbide 0 2021- No 60mg QD Take 60 mg [...] 00:00 mouth Medical capsule 27 :00 daily. [place] hydrALAZINE 2021- No 25mg Q.[id number] Take [address] (APRESOLINE 01-18-30 [id number] by mouth 3 [facility] ) 25 MG [...] :00 daily. Center hydrALAZINE 2021- No 25mg Q.[id number] Take [address] (APRESOLINE 01-18 [id number] by mouth 3 [facility] ) 25 MG [...] :00 daily. Center hydrALAZINE 2021- No 25mg Q.[id number] Take [address] (APRESOLINE 01-18 [id number] by mouth 3 [facility] ) 25 MG [...] 00:00 mouth Medical capsule 27 :00 daily. [place] hydrALAZINE 2021- No 25mg Q.[id number] Take [address] (APRESOLINE 01-18-30 [id number] by mouth 3 [facility] ) 25 MG [...] :00 daily. Center hydrALAZINE 2021- No 25mg Q.[id number] Take [address] (APRESOLINE 01-18 [id number] by mouth 3 [facility] ) 25 MG [...] nightly. Med ical 10 MG 27 :00 [place] tablet melatonin 2021- No 10mg QD Take [address] 10 mg TbDL 01-1830 by mouth Luke s 11:55: 00:00 nightly. Medical 27 :00 [place] insulin 2021- No 10U Inject [address] aspart 01-18-30 Units [facility]ukes U-100 11:55: 00:00 subcutaneo Medic al (NovoLOG) 27 :00 usly 3 Center 100 unit/mL (three) (3 mL) InPn times daily before meals. calcitrioL 2021- No .25ug QD Take 0.[address] (ROCALTROL) 01-18-30 mcg by [facility]ukes 0.25 MCG 11:55: 00:00 mouth Medical capsule 27 :00 daily. [place] hydrALAZINE 2021- No 25mg Q.[id number] Take [address] (APRESOLINE 01-18 [id number] by mouth 3 [facility] ) 25 MG [...] 11:55: 00:00 nightly. Med ical 27 :00 [place] isosorbide 2021- No 60mg QD Take 60 [...] QD Inject [address] (ROCEPHIN) 8-30 09-24 intravenou [facility] kes 2 g in 00:00: [...] 125mg Q.5D Take 1 Met hodi (Vancocin) -08 05-[address] 125 MG 00:00: 04:59 [...] for 14 doses. vancomycin 2021- No 125mg Q.[id number] Take 1 [facility] (Vancocin) 09-24-[id number] 125 MG 00:00: 04:59 3D (125 mg Hospita capsule 00 :00 total) by l mouth 3 (three) times a day for 8 doses. vancomycin 2021- No 125mg Q.[id number] Take 1 [facility] (Vancocin) 09-24-[id number] 125 MG 00:00: 04:59 3D (125 mg Hospita capsule 00 :00 total) by l mouth 3 (three) times a day for 8 doses. vancomycin 2021- No 125mg Q.[id number] Take 1 [facility] (Vancocin) 09-24-[id number] 125 MG 00:00: 04:59 3D (125 mg Hospita capsule 00 :00 total) by l mouth 3 (three) times a day for 8 doses. vancomycin 2021- No 125mg Q.[id number] Take 1 [facility] (Vancocin) 09-24-[id number] 125 MG 00:00: 04:59 3D [...] 03 (two) l times a day. metoprolol 2021-0 2021- No 100mg Q.5D [...] mouth st MG tablet 18:55: nightly. Hosp franocis 51 l melatonin 2022-0 Yes 10mg QD [...] capsule 18:55: daily. Hospita 51 l traZODone Yes 100mg QD Take 100 Met hodi (DESYREL) 4-[address] 100 MG 18:55: mouth Hospita tablet 51 nightly. l isosorbide Yes 60mg QD Take 60 mg M [...] 51 daily. l hydrALAZINE 2021- No 25mg Q.[id number] Take 1 [facility] (APRESOLINE 09-16- [id number] tablet (25 st ) 25 MG 00:00: [...] QD Take 1 Met hodi e -16 10- tablet (40 st (Protonix) 00:00: 04:59 mg total) H ospita 40 MG EC 00 :00 by mouth l tablet daily for 30 days. hydrALAZINE 2021- No 25mg Q.[id number] Take 1 [facility] (APRESOLINE 09-16- [id number] tablet (25 st ) 25 MG 00:00: [...] for 30 days. hydrALAZINE 2021- No 25mg Q.[id number] Take 1 [facility] (APRESOLINE 09-16 [id number] tablet (25 st ) 25 MG 00:00: [...] for 30 days. hydrALAZINE 2021- No 25mg Q.[id number] Take 1 [facility] (APRESOLINE 4-28 05-29 [id number] tablet (25 st ) 25 MG 00:00: [...] for 30 days. hydrALAZINE 2021-2021- No 25mg Q.[id number] Take 1 [facility] (APRESOLINE 4- 05-29 [id number] tablet (25 st ) 25 MG 00:00: [...] a day for 30 days. pantoprazol 2021-0 202- No 40mg QD Take 1 Met hodi e 4-28 05-29 tablet (40 st (Protonix) 00:00: 04:59 mg total) H ospita 40 MG EC 00 :00 by mouth l tablet daily for 30 days. hydrALAZINE 2021- No 25mg Q.[id number] Take 1 [facility] (APRESOLINE 09-16 [id number] tablet (25 st ) 25 MG 00:00: [...] times a day for 30 days. pantoprazol No 40mg QD Take 1 Met hodi [...] .1mg QD Take 0.1 Met [facility]odi (CATAPRES) 3-26 03-[address] 0.1 MG 19:46: [...] Take 1 mg M ethodi (REQUIP) 1 -14 08-[address] MG tablet 19:46: 00:00 [...] times a day. hydrALAZINE 2021- No 100mg Q.[id number] Take 100 [facility] (APRESOLINE 3-25 03-[id number] ) 100 MG 19:46: [...] times a day. hydrALAZINE 2021- No 100mg Q.[id number] Take 100 [facility] (APRESOLINE 3-25 03-[id number] ) 100 MG 19:46: [...] a day for 30 days. hydrALAZINE 2021-0 2- No 50mg Q.[id number] Take 1 [facility] (APRESOLINE 3-25 -28 [id number] tablet (50 st ) 50 MG 00:00: 00:00 3D mg total) [facility] tablet 00 :00 by mouth l every 8 (eight) hours for 30 days. insulin 2021-0 2021- No 12U QD Inject [facility] GLARGINE 08-13-[address] (LANTUS) 00:00: 00:00 (12 Units Hos koe 100 unit/mL 00 :00 total) l injection under the (vial) skin nightly for 30 days. carvediloL 2021-0 2021- No 25mg Q.5D Take 1 Meth ramiro (COREG) 25 08-13-28 tablet (25 st MG tablet 00:00: 00:00 mg total) Ho spita 00 :00 by mouth 2 l (two) times a day for 30 days. hydrALAZINE 2021-2021- No 50mg Q.[id number] Take 1 [facility] (APRESOLINE 3-25 -28 [id number] tablet (50 st ) 50 MG 00:00: [...] morning for 30 days. levalbutero 2021- No [id number] 1.25mg Q8H Take 3 mL Methodi l [...] for 30 days. insulin 2021- No 5U Q.[id number] Inject M ethodi LISPRO 06-04 [id number] 0.05 mL (5 st (ADMELOG) 00:00: 05:59 [...] to 30 days. budesonide 2020-05 Yes 3mg Q.[id number] Take 3 mg [facility] EC 2-12 [id number] by mouth 3 st (ENTOCORT 00:00: 3D (three) Hospi ta EC) 3 mg 24 00 times a l hr capsule day. budesonide 2020-05 Yes 3mg Q.[id number] Take 3 mg [facility] EC 2-12 [id number] by mouth 3 st (ENTOCORT 00:00: 3D (three) Hospi ta EC) 3 mg 24 00 times a l hr capsule day. budesonide 2020-05 Yes 3mg Q.[id number] Take 3 mg [facility] EC 2-12 [id number] by mouth 3 st (ENTOCORT 00:00: 3D (three) Hospi ta EC) 3 mg 24 00 times a l hr capsule day. budesonide 2020-05 Yes 3mg Q.[id number] Take 3 mg [facility] EC 2-12 [id number] by mouth 3 st (ENTOCORT 00:00: 3D (three) Hospi ta EC) 3 mg 24 00 times a l hr capsule day. budesonide 2020-05 Yes 3mg Q.[id number] Take 3 mg [facility]i EC 2-12 [id number] by mouth 3 st (ENTOCORT 00:00: 3D (three) Hospi ta EC) 3 mg 24 00 times a l hr capsule day. budesonide 2020-05 Yes 3mg Q.[id number] Take 3 mg [facility] EC 2-12 [id number] by mouth 3 st (ENTOCORT 00:00: 3D (three) Hospi ta EC) 3 mg 24 00 times a l hr capsule day. budesonide 2020-05 Yes 3mg Q.[id number] Take 3 mg [facility] EC 2-12 [id number] by mouth 3 st (ENTOCORT 00:00: 3D (three) Hospi ta EC) 3 mg 24 00 times a l hr capsule day. budesonide 2020-05 Yes 3mg Q.[id number] Take 3 mg [facility] EC 2-12 [id number] by mouth 3 st (ENTOCORT 00:00: 3D (three) Hospi ta EC) 3 mg 24 00 times a l hr capsule day. budesonide 2020-05 Yes 3mg Q.[id number] Take 3 mg [facility] EC 2-12 [id number] by mouth 3 st (ENTOCORT 00:00: 3D [...] Under breast and between legs allopurinol Yes [id number] 150mg Take 150 Univers (ZYLOPRIM) 1-04 mg by ity of 100 mg 15:21: mouth [place] tablet 32 daily. Medical Branch CALCIUM Yes .25mg Take 0.25 Univ ers CARBONATE/V 1-04 mg by ity of ITAMIN D3 15:21: mouth [place] (VITAMIN 32 daily. Medical D-3 ORAL) Branch allopurinol Yes [id number] 150mg Take 150 Univers (ZYLOPRIM) 1-04 mg by ity of 100 mg 15:21: mouth [place] tablet 32 daily. Medical Branch CALCIUM Yes .25mg Take 0.25 Univ ers CARBONATE/V 1-04 mg by ity of ITAMIN D3 15:21: mouth [place] (VITAMIN 32 daily. Medical D-3 ORAL) Branch allopurinol Yes [id number] 150mg Take 150 Univers (ZYLOPRIM) 1-04 mg by ity of 100 mg 15:21: mouth [place] tablet 32 daily. Medical Branch CALCIUM Yes .25mg Take 0.25 Univ ers CARBONATE/V 1-04 mg by ity of ITAMIN D3 15:21: mouth [place] (VITAMIN 32 daily. Medical D-3 ORAL) Branch allopurinol Yes [id number] 150mg Take 150 Univers (ZYLOPRIM) 1-04 mg by ity of 100 mg 15:21: mouth [place] tablet 32 daily. Medical Branch CALCIUM Yes .25mg Take 0.25 Univ ers CARBONATE/V 1-04 mg by ity of ITAMIN D3 15:21: mouth [place] (VITAMIN 32 daily. Medical D-3 ORAL) Branch allopurinol Yes [id number] 150mg Take 150 Univers (ZYLOPRIM) 1-04 mg by ity of 100 mg 15:21: mouth [place] tablet 32 daily. Medical Branch CALCIUM Yes .25mg Take 0.25 Univ ers CARBONATE/V 1-04 mg by ity of ITAMIN D3 15:21: mouth [place] (VITAMIN 32 daily. Medical D-3 ORAL) Branch allopurinol Yes [id number] 150mg Take 150 Univers (ZYLOPRIM) 1-04 mg by ity of 100 mg 15:21: mouth [place] tablet 32 daily. Medical Branch allopurinol Yes [id number] 150mg Take 150 Univers (ZYLOPRIM) 1-04 mg by ity of 100 mg 15:21: mouth [place] tablet 32 daily. Medical Branch CALCIUM Yes .25mg Take 0.25 Univ ers CARBONATE/V 1-04 mg by ity of ITAMIN D3 15:21: mouth [place] (VITAMIN 32 daily. Medical D-3 ORAL) Branch allopurinol Yes [id number] 150mg Take 150 Univers (ZYLOPRIM) 1-04 mg [...] daily. Medical D-3 ORAL) Branch allopurinol Yes [id number] 150mg Take 150 Univers (ZYLOPRIM) 1-04 mg by ity of 100 mg 15:21: mouth [place] tablet 32 daily. Medical Branch CALCIUM Yes .25mg Take 0.25 Univ ers CARBONATE/V 1-04 mg by ity of ITAMIN D3 15:21: mouth [place] (VITAMIN 32 daily. Medical D-3 ORAL) Branch allopurinol Yes [id number] 150mg Take 150 Univers (ZYLOPRIM) 1-04 mg by ity of 100 mg 15:21: mouth [place] tablet 32 daily. Medical Branch CALCIUM Yes .25mg Take 0.25 Univ ers CARBONATE/V 1-04 mg by ity of ITAMIN D3 15:21: mouth [place] (VITAMIN 32 daily. Medical D-3 ORAL) Branch allopurinol Yes [id number] 150mg Take 150 Univers (ZYLOPRIM) 1-04 mg by ity of 100 mg 15:21: mouth [place] tablet 32 daily. Medical Branch CALCIUM Yes .25mg Take 0.25 Univ ers CARBONATE/V 1-04 mg by ity of ITAMIN D3 15:21: mouth [place] (VITAMIN 32 daily. Medical D-3 ORAL) Branch furosemide Yes [id number] 40mg Take 40 mg Univers (LASIX) 20 1-04 by mouth ity o f mg tablet 15:19: daily. [place] [address] Medical Branch furosemide Yes [id number] 40mg Take 40 mg Univers (LASIX) 20 1-04 by mouth ity o f mg tablet 15:19: daily. [place] [address] Medical Branch furosemide Yes [id number] 40mg Take 40 mg Univers (LASIX) 20 1-04 by mouth ity o f mg tablet 15:19: daily. [address] furosemide 2016- Yes [id number] 40mg Take 40 mg Univers (LASIX) 20 1-04 by mouth ity o f mg tablet 15:19: daily. [address] furosemide Yes [id number] 40mg Take 40 mg Univers (LASIX) 20 1-04 by mouth ity o f mg tablet 15:19: daily. [address] furosemide Yes [id number] 40mg Take 40 mg Univers (LASIX) 20 1-04 by mouth ity o f mg tablet 15:19: daily. [address] furosemide Yes [id number] 40mg Take 40 mg Univers (LASIX) 20 1-04 by mouth ity o f mg tablet 15:19: daily. [address] furosemide Yes [id number] 40mg Take 40 mg Univers (LASIX) 20 1-04 by mouth ity o f mg tablet 15:19: daily. [address] furosemide Yes [id number] 40mg Take 40 mg Univers (LASIX) 20 1-04 by mouth ity o f mg tablet 15:19: daily. [address] furosemide Yes [id number] 40mg Take 40 mg Univers (LASIX) 20 1-04 by mouth ity o f mg tablet 15:19: daily. [address] furosemide Yes [id number] 40mg Take 40 mg Univers (LASIX) 20 1-04 by mouth ity o f mg tablet 15:19: daily. [address] Golimumab 2016- Yes [id number] inject U nivers (SIMPONI) 1-04 under the ity o f 50 mg/0.5 15:18: skin. [place] mL 20 Infusion Medical injection every 8 Branch weeks for rheumatoid arthritis. Golimumab Yes [id number] inject U nivers (SIMPONI) 1-04 under the ity o f 50 mg/0.5 15:18: skin. [place] mL 20 Infusion Medical injection every 8 Branch weeks for rheumatoid arthritis. Golimumab 2016- Yes [id number] inject U nivers (SIMPONI) 1-04 under the ity o f 50 mg/0.5 15:18: skin. [place] mL 20 Infusion Medical injection every 8 Branch weeks for rheumatoid arthritis. Golimumab 2017- Yes [id number] inject U nivers (SIMPONI) 1-04 under the ity o f 50 mg/0.5 15:18: skin. [place] mL 20 Infusion Medical injection every 8 Branch weeks for rheumatoid arthritis. Golimumab Yes [id number] inject U nivers (SIMPONI) 1-04 under the ity o f 50 mg/0.5 15:18: skin. [place] mL 20 Infusion Medical injection every 8 Branch weeks for rheumatoid arthritis. Golimumab Yes [id number] inject U nivers (SIMPONI) 1-04 under the ity o f 50 mg/0.5 15:18: skin. [place] mL 20 Infusion Medical injection every 8 Branch weeks for rheumatoid arthritis. Golimumab Yes [id number] inject U nivers (SIMPONI) 1-04 under the ity o f 50 mg/0.5 15:18: skin. [place] mL 20 Infusion Medical injection every 8 Branch weeks for rheumatoid arthritis. Golimumab Yes [id number] inject U nivers (SIMPONI) 1-04 under the ity o f 50 mg/0.5 15:18: skin. [place] mL 20 Infusion Medical injection every 8 Branch weeks for rheumatoid arthritis. Golimumab Yes [id number] inject U nivers (SIMPONI) 1-04 under the ity o f 50 mg/0.5 15:18: skin. [place] mL 20 Infusion Medical injection every 8 Branch weeks for rheumatoid arthritis. Golimumab Yes [id number] inject U nivers (SIMPONI) 1-04 under the ity o f 50 mg/0.5 15:18: skin. [place] mL 20 Infusion Medical injection every 8 Branch weeks for rheumatoid arthritis. Golimumab Yes [id number] inject U nivers (SIMPONI) 1-04 under the [...] Branch daily with meals. linagliptin 2017-0 Yes [id number] Take by Univers (TRADJENTA) 1-04 mouth. ity [...] Branch daily with meals. linagliptin 2017-0 Yes [id number] Take by Univers (TRADJENTA) 1-04 mouth. ity [...] Branch daily with meals. linagliptin 2017-0 Yes [id number] Take by Univers (TRADJENTA) 1-04 mouth. ity [...] 2 [place] tablet 03 (two) Medical times [place] daily with meals. linagliptin 2017-0 Yes [id number] Take by Univers (TRADJENTA) 1-04 mouth. ity of 5 mg tablet 14:33: Medical Branch linagliptin 2017-0 Yes [id number] Take by [facility] ([facility]JENTA) 1-04 mouth. ity [...] 2 [place] tablet 03 (two) Medical times [place] daily with meals. linagliptin 2017-0 Yes [id number] Take by [facility] ([facility]) 1-04 mouth. ity [...] 2 [place] tablet 03 (two) Medical times [place] daily with meals. linagliptin 2017-0 Yes [id number] Take by [facility] (TRADJENTA) 1-04 mouth. ity [...] Medical times Branch daily with meals. hydralAZINE 2017 Yes 50mg Take 50 mg [...] Branch daily with meals. linagliptin 2016- Yes [id number] Take by [facility] (TRADJENTA) 1-04 mouth. ity [...] Branch daily with meals. linagliptin 2017-0 Yes [id number] Take by Univers (TRADJENTA) 1-04 mouth. ity of 5 mg tablet 14:33: [place] [facility] apixaban 2016-0 Yes 5mg Take [...] times Branch daily with meals. linagliptin Yes [id number] Take by [facility] (TRADJENTA) 1-04 mouth. ity [...] 2 [place] tablet 03 (two) Medical times [place] daily with meals. linagliptin Yes [id number] Take by [facility] (TRADJENTA) 1-04 mouth. ity of 5 mg tablet 14:33: [place] 03 Medical [facility] pramipexole Yes [id number] 2mg Take 2 [facility] (MIRAPEX) 1 1-04 tablets [place] [facility] pramipexole 2017-0 Yes [id number] 2mg Take 2 [facility] (MIRAPEX) 1 1-04 tablets [place] bed[place] [facility] pramipexole 0 Yes [id number] 2mg Take 2 [facility] (MIRAPEX) 1 1-04 tablets by [place] mg tablet [place] bed[place]. [facility] pramipexole 2016-0 Yes [id number] 2mg Take 2 [facility] (MIRAPEX) 1 1-04 tablets by [place] [facility] pramipexole 0 Yes [id number] 2mg Take 2 [facility] (MIRAPEX) 1 1-04 tablets [place] bed[place] [facility] pramipexole Yes [id number] 2mg Take 2 [facility] (MIRAPEX) 1 1-04 tablets by [place] mg [place] [facility] pramipexole 0 Yes [id number] 2mg Take 2 [facility] (MIRAPEX) 1 1-04 tablets by [place] mg [place] bed[place] [facility] pramipexole 0 Yes [id number] 2mg Take 2 [facility] (MIRAPEX) 1 1-04 tablets by [place] mg [place] bed[place] [facility] pramipexole 0 Yes [id number] 2mg Take 2 [facility] (MIRAPEX) 1 1-04 tablets by [place] y [place] mg tablet [place] bed[place]. [facility] pramipexole 0 Yes [id number] 2mg Take 2 [facility] (MIRAPEX) 1 1-04 tablets by [place] [facility] [place] mg tablet [place] bed[place]. [facility] pramipexole 0 Yes [id number] 2mg Take 2 [facility] (MIRAPEX) 1 1-04 tablets by [place] mg [place] bed[place]. [facility] gabapentin 2016- Yes 600mg Take 1 Univ ers (NEURONTIN) [...] Medical times Branch daily. glipiZIDE 2015-05 Yes [id number] 10mg Take 1 [place] kevan XL 1-16 tablet by ity of (GLUCOT[place]OL [place]: [place] XL[place] 10 mg 00 (two) Medical 24 hr times Branch tablet daily. glipiZIDE 2015-05 Yes [id number] 10mg Take 1 [facility] kevan XL 1-16 tablet by ity of (GLUCOTROL 00:[place]: [place] XL[place] 10 mg 00 (two) Medical 24 hr times Branch tablet daily. glipiZIDE 2015-05 Yes [id number] 10mg Take 1 Un kevan XL 1-16 tablet by [facility]y of (GLUCOTROL 00:[place]: [place] XL[place] 10 mg 00 (two) Medical 24 hr times Branch tablet daily. glipiZIDE 2015-05 Yes [id number] 10mg Take 1 [place] ke[place] XL 1-16 tablet by [facility]y of (GLUCOTROL [place]: [place] XL[place] 10 mg 00 (two) Medical 24 hr times Branch tablet daily. glipiZIDE 2015-05 Yes [id number] 10mg Take 1 [facility] kevan XL 1-16 tablet by [facility]y of (GLUCOTROL 00:00: [place] XL[place] 10 mg 00 (two) Medical 24 hr times Branch tablet daily. glipiZIDE 2015-05 Yes [id number] 10mg Take 1 [place] ke[place] XL 1-16 tablet by [facility]y of (GLUCOTROL 00:00: mouth [place] XL) 10 mg 00 (two) Medical 24 hr times Branch tablet daily. glipiZIDE 2015-05 Yes [id number] 10mg Take 1 [place] kevan XL 1-16 tablet by ity of (GLUCOTROL 00:00: [place] XL[place] 10 mg 00 (two) Medical 24 hr times Branch tablet daily. glipiZIDE 2015-05 Yes [id number] 10mg Take 1 [place] ke[place] XL 1-16 tablet by ity of (GLUCOTROL 00:00: mouth [place] XL) 10 mg 00 (two) Medical 24 hr times Branch tablet daily. glipiZIDE 2015-05 Yes [id number] 10mg Take 1 [place] ke[place] XL 1-16 tablet by ity of (GLUCOTROL 00:00: mouth [place] XL[place] 10 mg 00 (two) Medical 24 hr times Branch tablet daily. glipiZIDE 2015-05 Yes [id number] 10mg Take 1 [place] XL 1-16 tablet by ity of (GLUCOTROL 00:00: mouth [place] XL[place] 10 mg 00 (two) Medical 24 hr times Branch tablet daily. glipiZIDE 2015-05 Yes [id number] 10mg Take 1 [place] kevan XL 1-16 tablet by ity of (GLUCOTROL 00:00: mouth [place] XL) 10 mg 00 (two) [facility] 24 hr [facility] [id number] 10mg Take 1 Univers n (LIPITOR) 1-02 tablet by ity of 10 mg 00:00: mouth at [place] tablet 00 bedtime. Medical Branch atorvasta 2015-05 Yes [id number] 10mg Take 1 Univers n (LIPITOR) 1-02 tablet by ity of 10 mg 00:00: mouth at [place] tablet 00 bedtime. Medical Branch atorvasta 2015-05 Yes [id number] 10mg Take 1 [facility] n (LIPITOR) 1-02 tablet by ity of 10 mg 00:00: mouth at [place] tablet 00 bedtime. Medical Branch atorvasta 2015-05 Yes [id number] 10mg Take 1 [facility] n (LIPITOR) 1-02 tablet by ity of 10 mg 00:00: mouth at [place] tablet 00 bedtime. Medical Branch atorvasta 2015-05 Yes [id number] 10mg Take 1 Univers n (LIPITOR) 1-02 tablet by ity of 10 mg 00:00: mouth at [place] tablet 00 bedtime. Medical Branch atorvasta 2015-05 Yes [id number] 10mg Take 1 Univers n (LIPITOR) 1-02 tablet by ity of 10 mg 00:00: mouth at [place] tablet 00 bedtime. Medical Branch atorvasta 2015-05 Yes [id number] 10mg Take 1 Univers n (LIPITOR) 1-02 tablet by ity of 10 mg 00:00: mouth at [place] tablet 00 bedtime. Medical Branch atorvastati 2015-05 Yes [id number] 10mg Take 1 Univers n (LIPITOR) 1-02 tablet by ity of 10 mg 00:00: mouth at [place] tablet 00 bedtime. Medical Branch atorvasta 2015-05 Yes [id number] 10mg Take 1 [facility] n (LIPITOR) 1-02 tablet by ity of 10 mg 00:00: mouth at [place] tablet 00 bedtime. [facility] Branch atorvasta 2015-05 Yes [id number] 10mg Take 1 Univers n (LIPITOR) 1-02 tablet by ity of 10 mg 00:00: mouth at [place] tablet 00 bedtime. Medical Branch atorvasta 2015-05 Yes [id number] 10mg Take 1 Univers n (LIPITOR) 1-02 tablet by ity of 10 mg 00:00: mouth at [place] tablet 00 bedtime. Medical Branch Immunizations Ordered Immunization Filled Immunization Date Status Commen ts Source Name Name PFIZER COVID-19 MRNA 2021-06-10 Completed [facility] VACCINATION 00:00:00 [facility] PFIZER COVID-19 MRNA 2021-06-10 Completed [facility] odist VACCINATION 00:00:00 [facility] PFIZER COVID-19 MRNA 2021-06-10 Completed [facility] odist VACCINATION 00:00:00 [facility] PFIZER COVID-19 MRNA 2021-06-10 Completed [facility] odist VACCINATION 00:00:00 [facility] PFIZER COVID-19 MRNA 2021-06-10 Completed [facility] odist VACCINATION 00:00:00 [facility] PFIZER COVID-19 MRNA 2021-06-10 Completed Meth odist VACCINATION 00:00:00 [facility] PFIZER COVID-19 MRNA 2021-06-10 Completed Meth odist VACCINATION 00:00:00 [facility] PFIZER COVID-19 MRNA 2021-06-10 Completed Meth odist VACCINATION 00:00:00 [facility] PFIZER COVID-19 MRNA 2021-06-10 Completed Meth odist VACCINATION 00:00:00 [facility] PFIZER COVID-19 MRNA 2020-07-09 Completed Meth odist VACCINATION 00:00:00 [facility] PFIZER COVID-19 MRNA 2020-07-09 Completed Meth odist VACCINATION 00:00:00 [facility] PFIZER COVID-19 MRNA 2020-07-09 Completed Meth odist VACCINATION 00:00:00 [facility] PFIZER COVID-19 MRNA 2020-07-09 Completed Meth odist VACCINATION 00:00:00 [facility] PFIZER COVID-19 MRNA 2020-07-09 Completed Meth odist VACCINATION 00:00:00 [facility] PFIZER COVID-19 MRNA 2020-07-09 Completed Meth odist VACCINATION 00:00:00 [facility] PFIZER COVID-19 MRNA 2020-07-09 Completed Meth odist VACCINATION 00:00:00 [facility] PFIZER COVID-19 MRNA 2020-07-09 Completed Meth odist VACCINATION 00:00:00 [facility] PFIZER COVID-19 MRNA 2020-07-09 Completed Meth odist VACCINATION 00:00:00 [facility] PFIZER COVID-19 MRNA 2020-06-18 Completed Meth odist VACCINATION 00:00:00 [facility] PFIZER COVID-19 MRNA 2020-06-18 Completed [facility] VACCINATION 00:00:00 Hospital PFIZER COVID-19 MRNA 2020-06-18 Completed [facility] VACCINATION 00:00:00 Hospital PFIZER COVID-19 MRNA 2020-06-18 Completed [facility] VACCINATION 00:00:00 Hospital PFIZER COVID-19 MRNA 2020-06-18 Completed [facility] VACCINATION 00:00:00 Hospital PFIZER COVID-19 MRNA 2020-06-18 Completed [facility] VACCINATION 00:00:00 Hospital PFIZER COVID-19 MRNA 2020-06-18 Completed Meth odist VACCINATION 00:00:00 [facility] PFIZER COVID-19 MRNA 2020-06-18 Completed [facility] VACCINATION 00:00:00 Hospital PFIZER COVID-19 MRNA 2020-06-18 Completed [facility] VACCINATION 00:00:00 Hospital Pneumococcal 2020-04-29 Completed [facility] Polysaccharide 00:00:00 [facility] Zoster 2020-04-29 Completed [facility] 00:00:00 Hospital Pneumococcal 2020-04-29 Completed [facility] Polysaccharide 00:00:00 Hospital Zoster 2020-04-29 Completed [facility] 00:00:00 Hospital Pneumococcal 2020-04-29 Completed [facility] Polysaccharide 00:00:00 Hospital Zoster 2020-04-29 Completed [facility] 00:00:00 Hospital Pneumococcal 2020-04-29 Completed [facility] Polysaccharide 00:00:00 Hospital Zoster 2020-04-29 Completed [facility] 00:00:00 Hospital Pneumococcal 2020-04-29 Completed [facility] Polysaccharide 00:00:00 Hospital Zoster 2020-04-29 Completed [facility] 00:00:00 Hospital Pneumococcal 2020-04-29 Completed [facility] Polysaccharide 00:00:00 Hospital Zoster 2020-04-29 Completed [facility] 00:00:00 Hospital Pneumococcal 2020-04-29 Completed [facility] Polysaccharide 00:00:00 Hospital Zoster 2020-04-29 Completed [facility] 00:00:00 Hospital Pneumococcal 2020-04-29 Completed [facility] Polysaccharide 00:00:00 Hospital Zoster 2020-04-29 Completed [facility] 00:00:00 Hospital Pneumococcal 2020-04-29 Completed [facility] Polysaccharide 00:00:00 Hospital Zoster 2020-04-29 Completed [facility] 00:00:00 Hospital Pneumococcal 2019-05-13 Completed [facility] Conjugate 13-Valent 00:00:00 Hospi true Pneumococcal 2019-05-13 Completed [facility] Conjugate 13-Valent 00:00:00 Hospi true Pneumococcal 2019-05-13 Completed [facility] Conjugate 13-Valent 00:00:00 Hospi true Pneumococcal 2019-05-13 Completed [facility] Conjugate 13-Valent 00:00:00 Hospi true Pneumococcal 2019-05-13 Completed [facility] Conjugate 13-Valent 00:00:00 Hospi true Pneumococcal 2019-05-13 Completed [facility] Conjugate 13-Valent 00:00:00 Hospi true Pneumococcal 2019-05-13 Completed [facility] Conjugate 13-Valent 00:00:00 Hospi true Pneumococcal 2019-05-13 Completed [facility] Conjugate 13-Valent 00:00:00 Hospi true Pneumococcal 2019-05-13 Completed [facility] Conjugate 13-Valent 00:00:00 [facility] true FLUCELVAX QUAD PF 2019-03-05 Completed Methodi [...] Metho dist 00:00:00 Hospital Influenza, 2016-02-03 Completed [facility] Unspecified 00:00:00 Hospital Pneumococcal 2016-02-03 Completed [facility] Conjugate 13-Valent 00:00:00 Hospi true Tdap 2016-02-03 Completed [facility] 00:00:00 Hospital Influenza, 2016-02-03 Completed [facility] Unspecified 00:00:00 Hospital Pneumococcal 2016-02-03 Completed [facility] Conjugate 13-Valent 00:00:00 Hospi true Tdap 2016-02-03 Completed [facility] 00:00:00 Hospital Influenza, 2016-02-03 Completed [facility] Unspecified 00:00:00 Hospital Pneumococcal 2016-02-03 Completed [facility] Conjugate 13-Valent 00:00:00 Hospi true Tdap 2016-02-03 Completed [facility] 00:00:00 Hospital Influenza, 2016-02-03 Completed [facility] Unspecified 00:00:00 Hospital Pneumococcal 2016-02-03 Completed [facility] Conjugate 13-Valent 00:00:00 Hospi true Tdap 2016-02-03 Completed [facility] 00:00:00 Hospital Influenza, 2016-02-03 Completed [facility] Unspecified 00:00:00 Hospital Pneumococcal 2016-02-03 Completed [facility] Conjugate 13-Valent 00:00:00 Hospi true Tdap 2016-02-03 Completed [facility] 00:00:00 Hospital Influenza, 2016-02-03 Completed [facility] Unspecified 00:00:00 Hospital Pneumococcal 2016-02-03 Completed [facility] Conjugate 13-Valent 00:00:00 Hospi true Tdap 2016-02-03 Completed [facility] 00:00:00 Hospital Influenza, 2016-02-03 Completed [facility] Unspecified 00:00:00 Hospital Pneumococcal 2016-02-03 Completed [facility] Conjugate 13-Valent 00:00:00 [facility]pi true Tdap 2016-02-03 Completed [facility] 00:00:00 Hospital Influenza, 2016-02-03 Completed [facility] Unspecified 00:00:00 Hospital Pneumococcal 2016-02-03 Completed [facility] Conjugate 13-Valent 00:00:00 Hospi true Tdap 2016-02-03 Completed [facility] 00:00:00 Hospital Influenza, 2016-02-03 Completed [facility] Unspecified 00:00:00 Hospital Pneumococcal 2016-02-03 Completed [facility] Conjugate 13-Valent 00:00:00 Hospi true Tdap 2016-02-03 Completed [facility] 00:00:00 [facility] Influenza Virus 2016-02-03 Completed Universit y of Vaccine 00:00:00 [facility] [place] [facility] Pneumococcal 13 2016-02-03 Completed Universit y of Conjugate, PCV13 00:00:00 [place] [facility] (Prevnar 13) Branch AP 2016-02-03 Completed University of 00:00:00 [facility] [place] [facility] Influenza Virus 2016-02-03 Completed Universit y of Vaccine 00:00:00 [facility] [place] [facility] Pneumococcal 13 2016-02-03 Completed Universit y of Conjugate, PCV13 00:00:00 [place] [facility] (Prevnar 13) Branch AP 2016-02-03 Completed University of 00:00:00 [facility] [place] [facility] Influenza Virus 2016-02-03 Completed Universit y of Vaccine 00:00:00 [facility] [place] [facility] Pneumococcal 13 2016-02-03 Completed Universit y of Conjugate, PCV13 00:00:00 [place] [facility] (Prevnar 13) Branch AP 2016-02-03 Completed University of 00:00:00 [facility] [place] [facility] Influenza Virus 2016-02-03 Completed Universit y of Vaccine 00:00:00 [facility] [place] [facility] Pneumococcal 13 2016-02-03 Completed Universit y of Conjugate, PCV13 00:00:00 [place] [facility] (Prevnar 13) Branch AP 2016-02-03 Completed University of 00:00:00 [facility] [place] [facility] Influenza Virus 2016-02-03 Completed Universit y of Vaccine 00:00:00 [facility] [place] [facility] Pneumococcal 13 2016-02-03 Completed Universit y of Conjugate, PCV13 00:00:00 [facility] dical (Prevnar 13) Branch [facility] 2016-02-03 Completed University of 00:00:00 [facility] [place] [facility] Influenza Virus 2016-02-03 Completed Universit y of Vaccine 00:00:00 [facility] [place] [facility] Pneumococcal 13 2016-02-03 Completed Universit y of Conjugate, PCV13 00:00:00 [facility] dical (Prevnar 13) Branch [facility] 2016-02-03 Completed University of 00:00:00 [facility] [place] [facility] Influenza Virus 2016-02-03 Completed Universit y of Vaccine 00:00:00 [facility] [place] [facility] Pneumococcal 13 2016-02-03 Completed Universit y of Conjugate, PCV13 00:00:00 [facility] dical (Prevnar 13) Branch [facility] 2016-02-03 Completed University of 00:00:00 [facility] [place] [facility] Influenza Virus 2016-02-03 Completed Universit y of Vaccine 00:00:00 [facility] [place] [facility] Pneumococcal 13 2016-02-03 Completed Universit y of Conjugate, PCV13 00:00:00 [facility] dical (Prevnar 13) Branch [facility] 2016-02-03 Completed University of 00:00:00 [facility] [place] [facility] Influenza Virus 2016-02-03 Completed Universit y of Vaccine 00:00:00 [facility] [place] [facility] Pneumococcal 13 2016-02-03 Completed Universit y of Conjugate, PCV13 00:00:00 [facility] dical (Prevnar 13) Branch [facility] 2016-02-03 Completed University of 00:00:00 [facility] [place] [facility] Influenza Virus 2016-02-03 Completed Universit y of Vaccine 00:00:00 [facility] [place] [facility] Pneumococcal 13 2016-02-03 Completed Universit y of Conjugate, PCV13 00:00:00 [facility] dical (Prevnar 13) Branch [facility] 2016-02-03 Completed University of 00:00:00 [facility] [place] [facility] Influenza Virus 2016-02-03 Completed Universit y of Vaccine 00:00:00 [facility] [place] [facility] Pneumococcal 13 2016-02-03 Completed Universit y of Conjugate, PCV13 00:00:00 [facility] dical (Prevnar 13) Branch [facility] 2016-02-03 Completed University of 00:00:00 [facility] [place] [facility] Influenza, 2015-01-05 Completed [facility] Unspecified 00:00:00 Hospital Pneumococcal 2015-01-05 Completed [facility] Conjugate 13-Valent 00:00:00 Hospi true Td 2015-01-05 Completed [facility] 00:00:00 Hospital Influenza, 2015-01-05 Completed [facility] Unspecified 00:00:00 Hospital Pneumococcal 2015-01-05 Completed [facility] Conjugate 13-Valent 00:00:00 [facility] Td 2015-01-05 Completed [facility] 00:00:00 Hospital Influenza, 2015-01-05 Completed [facility] Unspecified 00:00:00 Hospital Pneumococcal 2015-01-05 Completed [facility] Conjugate 13-Valent 00:00:00 [facility] Td 2015-01-05 Completed [facility] 00:00:00 Hospital Influenza, 2015-01-05 Completed [facility] Unspecified 00:00:00 Hospital Pneumococcal 2015-01-05 Completed [facility] Conjugate 13-Valent 00:00:00 [facility] Td 2015-01-05 Completed [facility] 00:00:00 Hospital Influenza, 2015-01-05 Completed [facility] Unspecified 00:00:00 Hospital Pneumococcal 2015-01-05 Completed [facility] Conjugate 13-Valent 00:00:00 [facility] Td 2015-01-05 Completed [facility] 00:00:00 Hospital Influenza, 2015-01-05 Completed [facility] Unspecified 00:00:00 Hospital Pneumococcal 2015-01-05 Completed [facility] Conjugate 13-Valent 00:00:00 [facility] Td 2015-01-05 Completed [facility] 00:00:00 Hospital Influenza, 2015-01-05 Completed [facility] Unspecified 00:00:00 Hospital Pneumococcal 2015-01-05 Completed [facility] Conjugate 13-Valent 00:00:00 [facility] Td 2015-01-05 Completed [facility] 00:00:00 Hospital Influenza, 2015-01-05 Completed [facility] Unspecified 00:00:00 Hospital Pneumococcal 2015-01-05 Completed [facility] Conjugate 13-Valent 00:00:00 Hospi true Td 2015-01-05 Completed [facility] 00:00:00 Hospital Influenza, 2015-01-05 Completed [facility] Unspecified 00:00:00 Hospital Pneumococcal 2015-01-05 Completed [facility] Conjugate 13-Valent 00:00:00 Hospi true Td 2015-01-05 Completed [facility] 00:00:00 Hospital Influenza Virus 2015-01-05 Completed Universit y of Vaccine 00:00:00 [facility] [place] [facility] Pneumococcal 13 2015-01-05 Completed Universit y of Conjugate, PCV13 00:00:00 [facility] dical (Prevnar 13) Branch Tetanus/Diptheria 2015-01-05 Completed Univers ity of 00:00:00 [facility] [place] [facility] Influenza Virus 2015-01-05 Completed Universit y of Vaccine 00:00:00 [facility] [place] [facility] Pneumococcal 13 2015-01-05 Completed Universit y of Conjugate, PCV13 00:00:00 [facility] dical (Prevnar 13) Branch Tetanus/Diptheria 2015-01-05 Completed Univers ity of 00:00:00 [facility] [place] [facility] Influenza Virus 2015-01-05 Completed Universit y of Vaccine 00:00:00 [facility] [place] [facility] Pneumococcal 13 2015-01-05 Completed Universit y of Conjugate, PCV13 00:00:00 [facility] dical (Prevnar 13) Branch Tetanus/Diptheria 2015-01-05 Completed Univers ity of 00:00:00 [facility] [place] [facility] Influenza Virus 2015-01-05 Completed Universit y of Vaccine 00:00:00 [facility] [place] [facility] Pneumococcal 13 2015-01-05 Completed Universit y of Conjugate, PCV13 00:00:00 [facility] dical (Prevnar 13) Branch Tetanus/Diptheria 2015-01-05 Completed Univers ity of 00:00:00 [facility] [place] [facility] Influenza Virus 2015-01-05 Completed Universit y of Vaccine 00:00:00 [facility] [place] [facility] Pneumococcal 13 2015-01-05 Completed Universit y of Conjugate, PCV13 00:00:00 [facility] dical (Prevnar 13) Branch Tetanus/Diptheria 2015-01-05 Completed Univers ity of 00:00:00 [facility] [place] [facility] Influenza Virus 2015-01-05 Completed Universit y of Vaccine 00:00:00 [facility] [place] [facility] Pneumococcal 13 2015-01-05 Completed Universit y of Conjugate, PCV13 00:00:00 [facility] dical (Prevnar 13) Branch Tetanus/Diptheria 2015-01-05 Completed Univers ity of 00:00:00 [facility] [place] [facility] Influenza Virus 2015-01-05 Completed Universit y of Vaccine 00:00:00 [facility] [place] [facility] Pneumococcal 13 2015-01-05 Completed Universit y of Conjugate, PCV13 00:00:00 [facility] dical (Prevnar 13) Branch Tetanus/Diptheria 2015-01-05 Completed Univers ity of 00:00:00 [facility] Influenza Virus 2015-01-05 Completed Universit y of Vaccine 00:00:00 [facility] [place] [facility] Pneumococcal 13 2015-01-05 Completed Universit y of Conjugate, PCV13 00:00:00 [facility] dical (Prevnar 13) Branch Tetanus/Diptheria 2015-01-05 Completed Univers ity of 00:00:00 [facility] Influenza Virus 2015-01-05 Completed Universit y of Vaccine 00:00:00 [facility] Pneumococcal 13 2015-01-05 Completed Universit y of Conjugate, PCV13 00:00:00 [facility] dical (Prevnar 13) Branch Tetanus/Diptheria 2015-01-05 Completed Univers ity of 00:00:00 [facility] Influenza Virus 2015-01-05 Completed Universit y of Vaccine 00:00:00 [facility] Pneumococcal 13 2015-01-05 Completed Universit y of Conjugate, PCV13 00:00:00 [facility] dical (Prevnar 13) Branch Tetanus/Diptheria 2015-01-05 Completed Univers ity of 00:00:00 [facility] Influenza Virus 2015-01-05 Completed Universit y of Vaccine 00:00:00 [facility] Pneumococcal 13 2015-01-05 Completed Universit y of Conjugate, PCV13 00:00:00 [facility] dical (Prevnar 13) Branch Tetanus/Diptheria 2015-01-05 Completed Univers ity of 00:00:00 [facility] Pneumococcal 2013-05-21 Completed [facility] Conjugate 00:00:00 [facility] Tdap 2013-05-21 Completed [facility] 00:00:00 Hospital Pneumococcal 2013-05-21 Completed [facility] Conjugate 00:00:00 Hospital Tdap 2013-05-21 Completed [facility] 00:00:00 Hospital Pneumococcal 2013-05-21 Completed [facility] Conjugate 00:00:00 Hospital Tdap 2013-05-21 Completed [facility] 00:00:00 Hospital Pneumococcal 2013-05-21 Completed [facility] Tdap 2013-05-21 Completed [facility] 00[facility]00 [facility] Pneumococcal 2013-05-21 Completed [facility] 00:00:00 Hospital Tdap 2013-05-21 Completed [facility] 00:00:00 Hospital Pneumococcal 2013-05-21 Completed [facility] 00:00:00 Hospital Tdap 2013-05-21 Completed [facility] 00:00:00 Hospital Pneumococcal 2013-05-21 Completed [facility] 00:00:00 Hospital Tdap 2013-05-21 Completed [facility] 00:00:00 Hospital Pneumococcal 2013-05-21 Completed [facility] 00:00:00 Hospital Tdap 2013-05-21 Completed [facility] 00:00:00 Hospital Pneumococcal 2013-05-21 Completed [facility] Con[facility] 00:00:00 Hospital Tdap 2013-05-21 Completed [facility] 00:00:00 Hospital H1N1 All Forms 2009-04-20 Completed [facility] 00:00:00 Hospital H1N1 All Forms 2009-04-20 Completed [facility] 00:00:00 Hospital H1N1 All Forms 2009-04-20 Completed [facility] 00:00:00 Hospital H1N1 All Forms 2009-04-20 Completed [facility] 00:00:00 Hospital H1N1 All Forms 2009-04-20 Completed [facility] 00:00:00 Hospital H1N1 All Forms 2009-04-20 Completed [facility] 00:00:00 Hospital H1N1 All Forms 2009-04-20 Completed [facility] 00:00:00 Hospital H1N1 All Forms 2009-04-20 Completed [facility] 00:00:00 Hospital H1N1 All Forms 2009-04-20 Completed [facility] 00:00:00 Hospital Vital Signs Vital Name Observation Time Observation Value Comments Source HEIGHT 2022-01-14 10:00:00 162.6 cm WEIGHT 2022-01-14 10:00:00 68.04 kg HEIGHT 2022-01-14 10:00:00 162.6 cm WEIGHT 2022-01-14 10:00:00 68.04 kg Systolic blood 2022-01-18 12:00:00 117 mm[Hg] [facility] Diastolic blood 2022-01-18 12:00:00 51 mm[Hg] [facility] Heart rate 2022-01-18 12:00:00 80 /min [facility] Body temperature 2022-01-18 12:00:00 36.78 Mena [facility] Respiratory rate 2022-01-18 12:00:00 18 /min [facility] Oxygen saturation in 2022-01-18 12:00:00 100 /min [facility] Arterial blood by Medical Ce nter Pulse oximetry Body height 2022-01-14 10:00:00 162.6 cm [facility] Body weight 2022-01-14 10:00:00 68.04 kg [facility] BMI 2022-01-14 10:00:00 25.75 kg/m2 [facility] Systolic blood 2021-09-16 23:24:00 145 mm[Hg] [facility] pressure Diastolic blood 2021-09-16 23:24:00 78 mm[Hg] [facility] pressure Heart rate 2021-09-16 23:00:00 80 /min [facility] Respiratory rate 2021-09-16 23:00:00 19 /min [facility] Body temperature 2021-09-16 19:25:00 36.28 Mena [facility] Oxygen saturation in 2021-09-16 15:57:32 98 /min [facility] Arterial blood by Pulse oximetry Body height 2021-09-07 12:58:00 162.6 cm [facility] Body weight 2021-09-07 12:58:00 67.3 kg [facility] BMI 2021-09-07 12:58:00 25.47 kg/m2 [facility] Procedures Procedure Date / Time Performing Source Performed Clinician [id number] 2022-10-11 [facility] 00:00:00 [facility] EXTERNAL PROVIDER RECORDS 2022-07-05 [facility] 06:01:00 Unassigned, No Medical Branch Name EXTERNAL PROVIDER RECORDS 2022-04-01 [facility] 06:01:00 Unassigned, No Medical Branch Name POCT-GLUCOSE METER 2022-01-18 Annalee Bey [facility] 12:10:00 Center HEMODIALYSIS INPATIENT 2022-01-18 Miles Quinones [facility] 07:52:[address] [facility] BASIC METABOLIC PANEL 2022-01-18 [facility], [facility] 06:09:00 Center POCT-GLUCOSE METER 2022-01-17 [facility], [facility] 19:46:00 [place] POCT-GLUCOSE METER 2022-01-17 [facility], [facility] 17:06:00 Center POCT-GLUCOSE METER 2022-01-17 [facility], [facility] 12:13:00 Center POCT-GLUCOSE METER 2022-01-17 [facility], [facility] 08:29:00 [place] BASIC METABOLIC PANEL 2022-01-17 [facility], [facility] 03:23:00 [place] POCT-GLUCOSE METER 2022-01-16 [facility], [facility] 20:16:00 [place] POCT-GLUCOSE METER 2022-01-16 [facility], [facility] 15:46:00 [place] POCT-GLUCOSE METER 2022-01-16 [facility], [facility] 11:46:00 [place] POCT-GLUCOSE METER 2022-01-16 [facility], [facility] 07:47:00 [place] POCT-GLUCOSE METER 2022-01-15 [facility], [facility] 20:13:00 [place] POCT-GLUCOSE METER 2022-01-15 [facility], [facility] 17:54:00 [place] POCT-GLUCOSE METER 2022-01-15 [facility], [facility] 12:31:00 [place] HEMODIALYSIS INPATIENT 2022-01-15 [facility] 10:06:42 [facility] POCT-GLUCOSE METER 2022-01-15 [facility], [facility] 07:32:00 [place] BASIC METABOLIC PANEL 2022-01-15 [facility], [facility] 03:58:00 [place] POCT-GLUCOSE METER 2022-01-14 [facility], [facility] 20:42:00 [place] POCT-GLUCOSE METER 2022-01-14 [facility] 15:38:00 Center SARS-COV2/RT-PCR (SLHS & REF 2022-01-14 [facility] LABS) 14:57:00 [place] XR CHEST 1 VIEW PORTABLE / 2022-01-14 [facility] BEDSIDE 14:38:00 Center POCT-GLUCOSE METER 2022-01-14 [facility] 12:02:00 [place] IR CENTRAL VENOUS CATHETER 2022-01-14 [facility] PLACEMENT (JUGULAR OR FEMORAL) 11:14:00 enter POCT-GLUCOSE METER 2022-01-14 [facility], [facility] 08:24:00 Center CBC (HEMOGRAM ONLY) 2022-01-14 [facility], [facility] 04:11:00 [place] BASIC METABOLIC PANEL 2022-01-14 [facility], [facility] 04:11:00 [place] POCT-GLUCOSE METER 2022-01-13 [facility], [facility] 19:39:00 [place] POCT-GLUCOSE METER 2022-01-13 [facility], [facility] 16:37:00 [place] POCT-GLUCOSE METER 2022-01-13 [facility], [facility] 13:51:00 [place] BLOOD GAS, ARTERIAL 2022-01-13 [facility], [facility] 08:41:00 [place] POCT-GLUCOSE METER 2022-01-13 [facility], [facility] 08:25:[address] [place] [address] BRAIN WITHOUT IV CONTRAST 2022-01-13 [facility], [facility] 07:50:00 [place] COMPREHENSIVE METABOLIC PANEL 2022-01-13 [facility], [facility] 07:29:00 [place] TROPONIN I 2022-01-13 [facility], [facility] ical 07:29:00 [place] TSH/FREE T4 IF INDICATED 2022-01-13 [facility], [facility] 07:29:00 [place] CBC W/PLT COUNT & AUTO 2022-01-13 [facility], [facility] DIFFERENTIAL 07:29:00 [place] CBC W/PLT COUNT & AUTO 2022-01-13 [facility], [facility] DIFFERENTIAL 07:29:00 [place] POCT-GLUCOSE METER 2022-01-13 [facility], [facility] 07:04:00 [place] POCT-GLUCOSE METER 2022-01-13 [facility], [facility] 06:21:00 [place] POCT-GLUCOSE METER 2022-01-12 [facility], [facility] 20:53:00 [place] POCT-GLUCOSE METER 2022-01-12 [facility], [facility] 19:20:00 [place] POCT-GLUCOSE METER 2022-01-12 Reji, [facility] 18:50:00 Center POCT-GLUCOSE METER 2022-01-12 Reji, [facility] 17:58:00 [place] IR TUNNELED CATHETER INSERTION 2022-01-12 Lexie, Rufina Montoya [facility] 16:30:00 [facility] POCT-GLUCOSE METER 2022-01-12 Reji, Mauro [facility] 12:08:00 [place] POCT-GLUCOSE METER 2022-01-12 [facility] Annalee Montoya [facility] 08:49:00 Center CBC W/PLT COUNT & AUTO 2022-01-12 [facility] Annalee Montoya [facility] DIFFERENTIAL 05:39:00 [place] BASIC METABOLIC PANEL 2022-01-12 [facility], Annalee Montoya [facility] 05:39:00 [place] MAGNESIUM 2022-01-12 [facility] Annalee Montoya [facility] 05:39:00 [place] PHOSPHORUS 2022-01-12 [facility], Annalee Montoya [facility] 05:39:00 Center PROTHROMBIN TIME/INR 2022-01-12 [facility], Annalee Montoya [facility] 05:39:00 Center APTT 2022-01-12 [facility], Annalee Montoya [facility] 05:39:00 [place] CBC W/PLT COUNT & AUTO 2022-01-12 [facility], Annalee Montoya [facility] DIFFERENTIAL 05:39:00 [place] (MANUAL DIFFERENTIAL) 2022-01-12 [facility], Annalee Montoya [facility] 05:39:00 [place] POCT-GLUCOSE METER 2022-01-11 [facility], Annalee Montoya [facility] 19:49:00 [place] POCT-GLUCOSE METER 2022-01-11 [facility], Annalee Montoya [facility] 17:57:00 [place] POCT-GLUCOSE METER 2022-01-11 [facility], Annalee Montoya [facility] 12:37:00 [place] HEMODIALYSIS INPATIENT 2022-01-11 Lexie, Ameliadora [facility] 12:29:37 [facility] POCT-GLUCOSE METER 2022-01-11 [facility], Annalee Montoya [facility] 07:49:00 Center POCT-GLUCOSE METER 2022-01-10 Shieh, Annalee Jan [facility] 21:16:00 Center POCT-GLUCOSE METER 2022-01-10 Shieh, Annalee Montoya [facility] 15:24:00 [place] IR TUNNEL CATHETER EXCHANGE 2022-01-10 Natacha Schulz [facility] 11:23:00 [facility] POCT-GLUCOSE METER 2022-01-10 Shieh, Annalee Montoya [facility] 11:21:00 Center CBC W/PLT COUNT & AUTO 2022-01-10 Shieh, Annalee Montoya [facility] DIFFERENTIAL 04:13:00 [place] BASIC METABOLIC PANEL 2022-01-10 Shieh, Annalee Montoya [facility] 04:13:00 [place] MAGNESIUM 2022-01-10 Shieh, Annalee Montoya [facility] 04:13:00 [place] PHOSPHORUS 2022-01-10 Shieh, Annalee Montoya [facility] 04:13:00 [place] APTT 2022-01-10 Roman Joanna [facility] 04:13:00 [place] CBC W/PLT COUNT & AUTO 2022-01-10 Shi, Annalee Montoya [facility] DIFFERENTIAL 04:13:00 [place] POCT-GLUCOSE METER 2022-01-09 Shieh, Annalee Montoya [facility] 21:15:00 Center APTT 2022-01-09 Shieh, Annalee Montoya [facility] 19:08:00 [place] POCT-GLUCOSE METER 2022-01-09 Shieh, Annalee Montoya [facility] 17:02:00 [place] POCT-GLUCOSE METER 2022-01-09 Shieh, Annalee Montoya [facility] 11:22:00 [place] APTT 2022-01-09 Shieh, Annalee Montoya [facility] 09:44:00 Center POCT-GLUCOSE METER 2022-01-09 Shieh, Annalee Montoya [facility] 07:19:00 [place] POCT-GLUCOSE METER 2022-01-09 Shieh, Annalee Montoya [facility] 05:05:00 Center CBC W/PLT COUNT & AUTO 2022-01-09 Shieh, Annalee Montoya [facility] DIFFERENTIAL 04:57:00 [place] BASIC METABOLIC PANEL 2022-01-09 [facility] Annalee Mont[facility] 04:57:00 [place] MAGNESIUM 2022-01-09 Shieh, Annalee Montoya [facility] 04:57:00 [place] PHOSPHORUS 2022-01-09 Shieh, Annalee Montoya [facility] 04:57:00 [place] CBC W/PLT COUNT & AUTO 2022-01-09 Deirdreeh, Annalee Montoya [facility] DIFFERENTIAL 04:57:00 [place] APTT 2022-01-09 Shieh, Annalee Montoya [facility] 00:34:00 [place] POCT-GLUCOSE METER 2022-01-08 [facility], Annalee Montoya [facility] 16:49:00 [place] APTT 2022-01-08 [facility], Annalee Montoya [facility] 16:13:00 [place] HEMODIALYSIS INPATIENT 2022-01-08 Lexie, [facility] 15:47:52 [facility] HEPATITIS B SURFACE ANTIGEN 2022-01-08 Lexie, [facility] 15:40:00 [facility] HEPATITIS B SURFACE ANTIBODY 2022-01-08 Lexie, [facility] 15:40:00 [facility] POCT-GLUCOSE METER 2022-01-08 [facility], Annalee Montoya [facility] 12:18:00 [place] POCT-GLUCOSE METER 2022-01-08 [facility], Annalee Montoya [facility] 07:59:00 [place] CBC W/PLT COUNT & AUTO 2022-01-08 [facility], Annalee Montoya [facility] DIFFERENTIAL 05:27:00 [place] BASIC METABOLIC PANEL 2022-01-08 [facility], Annalee Montoya [facility] 05:27:00 [place] MAGNESIUM 2022-01-08 [facility] Montoya [facility] 05:27:00 [place] PHOSPHORUS 2022-01-08 [facility], Annalee Montoya [facility] 05:27:00 [place] HEMOGLOBIN A1C 2022-01-08 [facility], Annalee Montoya [facility] 05:27:00 [place] CBC W/PLT COUNT & AUTO 2022-01-[address] [facility] DIFFERENTIAL 05:27:00 Center APTT 2022-01-[address] [facility] [facility] 05:26:00 Center POCT-GLUCOSE METER 2022-01-[address] [facility] 21:01:00 Center APTT 2022-01-[address] [facility] 21:00:00 Center CARDIAC CATH REPORT - SCAN 2022-01-07 Provider, [facility] 00:00:00 Default Scanning Center EKG-SCANNED 2022-01-07 Provider, [facility] 00:00:00 [facility] HEMODIALYSIS 2021-09-16 [facility] 20:36:27 Alexandru Laxmanrao POC GLUCOSE 2021-09-16 Al-Lahiq, [facility] 15:59:00 POC GLUCOSE 2021-09-16 Al-Lahiq, [facility] 11:10:00 POC GLUCOSE 2021-09-16 Al-Lahiq, [facility] 01:24:00 POC GLUCOSE 2021-09-15 Al-Lahiq, [facility] 20:54:00 POC GLUCOSE 2021-09-15 Al-Lahiq, [facility] 16:27:00 POC GLUCOSE 2021-09-15 Al-Lahiq, [facility] 12:04:00 POC GLUCOSE 2021-09-15 Al-Lahiq, [facility] 11:16:00 POC GLUCOSE 2021-09-15 Al-Lahiq, [facility] 01:21:00 POC GLUCOSE 2021-09-14 Al-Lahiq, [facility] 21:57:00 POC GLUCOSE 2021-09-14 Al-Lahiq, [facility] 17:17:00 IR TUNNELED DIALYSIS CATHETER 2021-09-14 [place] Owens [facility] REPLACEMENT/EXCHANGE 13:59:03 [facility] HEMODIALYSIS 2021-09-14 [facility] 12:42:40 Alexandru Laxmanrao POC GLUCOSE 2021-09-14 Al-Velmaarq, [facility] Hospit al 11:19:00 BASIC METABOLIC PANEL 2021-09-[address] [facility] 09:34:00 Alexandru Das ESTIMATED GFR 2021-09-14 [facility]00 Alexandru Das ZZCOVID-19 ANTI-SPIKE IGG 2021-09-14 [facility] ANTIBODY TITER 03:25:00 Oliver-Eloy TYPE AND SCREEN 2021-09-14 [facility]00 Oliver-Eloy ZZCOVID-19 SEROLOGY PATIENT 2021-09-14 [facility] SURVEILLANCE 03:25:00 Oliver-Eloy POC GLUCOSE 2021-09-14 Al-Laarq, [facility] Hospit al 01:33:00 POC GLUCOSE 2021-09-13 Al-Laarq, [facility] Hospit al 23:43:00 SURGICAL PATHOLOGY REQUEST 2021-09-13 AveryKaitlyn, [facility] 20:11:00 ESOPHAGOGASTRODUODENOSCOPY (EGD) 2021-09-13 [facility] 19:58:00 Shanon Vidal POC GLUCOSE 2021-09-13 [facility] 17:23:00 POC GLUCOSE 2021-09-13 [facility] Hospit al 11:26:00 BASIC METABOLIC PANEL 2021-09-[address] [facility] 10:25:00 Alexandru Das CBC WITH PLATELET AND 2021-09-13 [facility] DIFFERENTIAL 10:25:00 PARTIAL THROMBOPLASTIN TIME (PTT) 2021-09-13 [facility] 10:25:00 ESTIMATED GFR 2021-09-13 [facility] 10:25:00 Alexandru Das PROTHROMBIN TIME WITH INR 2021-09-13 [facility] 10:25:00 POC GLUCOSE 2021-09-13 De-Lahiq, [facility] 00:48:00 ECG 12-LEAD 2021-09-12 John, [facility] 23:22:14 Shanon Vidal POC GLUCOSE 2021-09-12 [facility] 22:53:00 POC GLUCOSE 2021-09-12 [facility], [facility] 21:49:00 POC GLUCOSE 2021-09-12 [facility], [facility] 16:57:00 POC GLUCOSE 2021-09-12 [facility], [facility] 11:26:00 POC GLUCOSE 2021-09-12 [facility], [facility] 11:01:00 BASIC METABOLIC PANEL 2021-09-[address] [facility] 09:15:00 Alexandrura Das ESTIMATED GFR 2021-09-12 [facility] Hospit al 09:15:00 Alexandru Jose Manuelmanrao HEMODIALYSIS 2021-09-12 [facility] Hospit al 02:06:24 Alexandru Laxmanrao POC GLUCOSE 2021-09-12 Al-Lahiq, [facility] 01:05:00 POC GLUCOSE 2021-09-11 Al-Lahiq, [facility] 21:53:00 POC GLUCOSE 2021-09-11 Al-Lahiq, [facility] 16:41:00 HEMODIALYSIS 2021-09-11 [facility] Hospit al 15:53:24 Alexandru Laxmanrao POC GLUCOSE 2021-09-11 [facility]iq, [facility] 11:14:00 KatelynnZCOLIVD-19 ANTI-SPIKE IGG 2021-09-11 Al-Lalarryq, [facility] Method [facility] ANTIBODY TITER 09:40:00 BASIC METABOLIC PANEL 2021-09-[address] [facility] 09:40:00 Alexandru Jose Manuelmanrao HEMOGLOBIN A1C 2021-09-11 Al-Lahiq, [facility] 09:40:00 ZZCOVID-19 SEROLOGY PATIENT 2021-09-11 Al-Lahiq, [facility] SURVEILLANCE 09:40:00 CBC WITH PLATELET AND 2021-09-11 Al-Lahi, [facility] DIFFERENTIAL 09:40:00 ESTIMATED GFR 2021-09-11 [facility] Hospit al 09:40:00 Alexandru Laxmanrao POC GLUCOSE 2021-09-11 [facility]iq, [facility] 00:39:00 POC GLUCOSE 2021-09-10 [facility]iq, [facility] 21:14:00 CORTISOL LEVEL, AM 2021-09-10 Al-Lahiq, [facility] 16:58:00 POC GLUCOSE 2021-09-10 Al-Lahiq, [facility] 15:59:00 POC GLUCOSE 2021-09-10 Al-Lahiq, [facility] 11:26:00 BASIC METABOLIC PANEL 2021-09-[address] [facility] 09:55:00 Alexandru Laxmanrao ESTIMATED GFR 2021-09-10 [facility] al 09:55:00 Alexandru Laxmanrao POC GLUCOSE 2021-09-10 Al-Lahiq, [facility] 00:18:00 POC GLUCOSE 2021-09-09 Al-Lahiq, [facility] 21:28:00 POC GLUCOSE 2021-09-09 Al-Lahiq, [facility] 16:28:00 CT HEAD WO CONTRAST 2021-09-09 Al-Lahiq, [facility] 14:48:37 HEMODIALYSIS 2021-09-09 [facility] Hospit al 14:08:47 Alexandru Laxmanrao POC GLUCOSE 2021-09-09 Al-Lahiq, [facility] 11:30:00 BASIC METABOLIC PANEL 2021-09-[address] [facility] 10:45:00 Alexandru Laxmanrao ESTIMATED GFR 2021-09-09 [facility] Hospit al 10:45:00 Alexandru Laxmanrao POC GLUCOSE 2021-09-09 Al-Lahiq, [facility] 01:10:00 POC GLUCOSE 2021-09-08 Al-Lahiq, [facility] Hospit al 21:16:00 POC GLUCOSE 2021-09-08 Al-Lahiq, [facility] Hospit al 16:10:00 BASIC METABOLIC PANEL 2021-09-08 [facility] 09:27:00 MAGNESIUM LEVEL 2021-09-08 Fraser, [facility] Hospit al 09:27:00 ESTIMATED GFR 2021-09-08 Fraser, [facility] Hospit al 09:27:00 GASTROINTESTINAL PATHOGENS PANEL, 2021-09-[address] [facility] PCR 02:15:00 POC GLUCOSE 2021-09-08 Al-Lahiq, [facility] Hospit al 01:30:00 BASIC METABOLIC PANEL 2021-09-07 [facility] 18:00:00 ESTIMATED GFR 2021-09-07 [facility] 18:00:00 HEPATITIS B SURFACE ANTIGEN 2021-09-07 [facility] 18:00:00 Alexandru Su HEPATITIS B SURFACE AB, 2021-09-07 [facility] QUANTITATIVE 18:00:00 Alexandru Das XR CHEST 1 VW PORTABLE 2021-09-07 [facility] 16:47:43 XR ABDOMEN 1 VW 2021-09-07 [facility], [facility] Hospit al 16:47:22 HEMODIALYSIS 2021-09-07 [facility] 16:16:15 POC GLUCOSE 2021-09-07 Al-Laarq, [facility] Hospit al 11:07:00 TROPONIN T 2021-09-07 Trinidad Menard [facility] 03:35:00 Libia TROPONIN T 2021-09-07 [facility] RESPIRATORY PATHOGEN PANEL WITH 2021-09-06 Marley Cronin [facility] COVID-19 RT-PCR 23:59:00 CT ABDOMEN PELVIS WO CONTRAST 2021-09-06 Mehrdad, [facility] 22:16:48 ECG ED PRELIMINARY INTERPRETATION 2021-09-06 Mehrdad Kimmy kim [facility] 21:23:51 ECG 12-LEAD 2021-09-06 Mehrdad [facility] Hospit al 20:48:53 CBC WITH PLATELET AND 2021-09-06 [facility] DIFFERENTIAL 20:09:00 COMPREHENSIVE METABOLIC PANEL 2021-09-06 [facility] 20[facility]09:00 ESTIMATED GFR 2021-09-06 Mehrdad [facility] Hospit al 20:09:00 MAGNESIUM LEVEL 2021-09-06 Mehrdad [facility] Hospit al 20:09:00 TROPONIN T 2021-09-06 [facility] 20:09[facility]00 PHOSPHORUS LEVEL 2021-09-06 [facility] true 20:09:00 POC GLUCOSE 2021-08-13 Kohlnhofer, [facility] 16:22:00 Annalee POC GLUCOSE 2021-08-13 Kohlnhofer, [facility] 11:17:00 Annalee XR CHEST 1 VW PORTABLE 2021-08-13 [facility] 11:13:27 BASIC METABOLIC PANEL 2021-08-13 [facility] 10:26:00 ESTIMATED GFR 2021-08-13 [facility]:26[facility]00 POC GLUCOSE 2021-08-13 Kohlnhofer, [facility] 00:38:00 Annalee HEMODIALYSIS 2021-08-13 [place] [facility] Hospit al 00:09:24 NV AN ELECTIVE ENDOTRACHEAL 2021-08-12 Leodan Rebolledo [facility] AIR[facility]AY 23:45:00 INSERTION, CATHETER, DIALYSIS, 2021-08-12 Ru [facility] PERITONEAL, LAPAROSCOPIC 23:10:00 POC GLUCOSE 2021-08-12 [place] 20:36:00 Annalee COVID-19 QUALITATIVE RT-PCR 2021-08-12 Ti Post [facility] 17:35:00 POC GLUCOSE 2021-08-12 [place] 15:58:00 Annalee POC GLUCOSE 2021-08-12 [place] 11:07:00 Annalee ECG 12-LEAD 2021-08-12 Harry, [facility] 11:02:39 Ricky London BASIC METABOLIC PANEL 2021-08-[address] [facility] 09:47:00 Alexandru Das ESTIMATED GFR 2021-08-12 [facility] 09:47:00 Alexandru Das POC GLUCOSE 2021-08-12 [place] 00:51:00 Annalee POC GLUCOSE 2021-08-11 [place] 20:44:00 Annalee POC GLUCOSE 2021-08-11 [place] 16:14:00 Annalee POC GLUCOSE 2021-08-11 [place] 11:06:00 Annalee POC GLUCOSE 2021-08-11 [place] 00:30:00 Annalee POC GLUCOSE 2021-08-10 [place] 20:48:00 Annalee POC GLUCOSE 2021-08-10 [place] 11:07:00 Annalee POC GLUCOSE 2021-08-10 [place] 00:46:00 Annalee POC GLUCOSE 2021-08-09 [place] 21:37:00 Annalee HEMODIALYSIS 2021-08-09 [facility], [facility] 17:13:01 Alexandru Das POC GLUCOSE 2021-08-09 [place] 16:55:00 Annalee POC GLUCOSE 2021-08-09 Tammy Dumont [facility] 11:19:00 Donna BASIC METABOLIC PANEL 2021-08-[address] [facility] 10:52:00 Alexandru Das ESTIMATED GFR 2021-08-09 [facility], [facility] 10:52:00 Alexandru Das PROCALCITONIN 2021-08-09 Hyacinth Guthrie [facility] 02:51:00 POC GLUCOSE 2021-08-09 Tammy Dumont [facility] 00:26:00 Donna POC GLUCOSE 2021-08-08 Tammy Dumont [facility] 21:18:00 Donna POC GLUCOSE 2021-08-08 Tammy Dumont [facility] 19:34:00 Donna POC GLUCOSE 2021-08-08 Tammy Dumont [facility] 10:58:00 Donna DIGOXIN LEVEL 2021-08-08 Ritu Graves [facility] 10:46:00 [place] BASIC METABOLIC PANEL 2021-08-[address] [facility] 10:46:00 Alexandru Laxmanrao ESTIMATED GFR 2021-08-08 [facility] Hospit al 10:46:00 Alexandru Laxmanrao POC GLUCOSE 2021-08-08 Tammy Dumont [facility] 02:06:00 Donna POC GLUCOSE 2021-08-07 Tammy Dumont [facility] 23:09:00 Donna HEMODIALYSIS 2021-08-07 [facility] Hospit al 20:13:07 Alexandru Laxmanrao POC GLUCOSE 2021-08-07 Tammy Dumont [facility] 15:50:00 Donna POC GLUCOSE 2021-08-07 Tammy Dumont [facility] 11:19:00 Donna CBC WITH PLATELET AND 2021-08-07 [facility] DIFFERENTIAL 11:15:00 Karie COMPREHENSIVE METABOLIC PANEL 2021-08-07 [facility] 11:15:00 Karie ESTIMATED GFR 2021-08-07 [facility] 11:15:00 Karie POC GLUCOSE 2021-08-07 Tammy Dumont [facility] 00:58:00 Donna HEMODIALYSIS 2021-08-06 [facility] Hospit al 21:36:17 Alexandru Laxmanrao POC GLUCOSE 2021-08-06 Mougouris, Taso [facility] 21:21:00 POC GLUCOSE 2021-08-06 Mougouris, Taso [facility] 15:39:00 BASIC METABOLIC PANEL 2021-08-[address] [facility] 11:19:00 Alexandru Laxmanrao ESTIMATED GFR 2021-08-06 [facility] Hospit al 11:19:00 Alexandru Suo POC GLUCOSE 2021-08-06 Mougouris, Taso [facility] 09:09:00 POC GLUCOSE 2021-08-06 Mougouris, Taso [facility] 04:44:00 HEMODIALYSIS 2021-08-06 [facility] 02:34:43 Alexandru Jose Manuelmanrao POC GLUCOSE 2021-08-06 Mougouris, Taso [facility] 01:09:00 XR CHEST 1 VW PORTABLE 2021-08-05 [facility] 23:40:00 POC GLUCOSE 2021-08-05 [facility] 21:24:00 OR [place] < [facility] H[facility] [place] AN ELECTIVE SUPRAGLOTTIC 2021-08-05 [facility] AIR[facility]AY 20:19:00 Izzy INSERTION, CATHETER, CENTRAL 2021-08-05 [facility] VENOUS, TUNNELED, FOR 20:13:00 HEMODIALYSIS TYPE AND SCREEN 2021-08-05 Sincere, [facility] Hos[facility] true 20:09:00 POC GLUCOSE 2021-08-05 [facility] 15:43:00 ECG 12-LEAD 2021-08-05 [facility] 14[facility]07:10 POC GLUCOSE 2021-08-05 Armen [facility] 11:25:00 Edwin XR CHEST 1 VW PORTABLE 2021-08-05 [facility], [facility] 11:17:10 CBC WITH PLATELET AND 2021-08-05 [facility] DIFFERENTIAL 10:45:00 Karie BASIC METABOLIC PANEL 2021-08-05 [facility] 10:45:00 Karie ESTIMATED GFR 2021-08-05 [facility] 10:45:00 Karie POC GLUCOSE 2021-08-05 [facility] Hospit [facility] 00:57:00 Edwin POC GLUCOSE 2021-08-04 [facility] 16:51:00 Edwin XR ABDOMEN 1 VW 2021-08-04 [facility] 16:40:00 Karie POC GLUCOSE 2021-08-04 Tim [facility] Hospit al 11:24:00 Donna HC COMPLETE BLD COUNT W/AUTO DIFF 2021-08-04 Tim [facility] 11:06:00 Donna BASIC METABOLIC PANEL 2021-08-[address] [facility] 11:06:00 Alexandru Laxmanrao MAGNESIUM LEVEL 2021-08-04 Nic [facility] Hospi true 11:06:00 Karie PHOSPHORUS LEVEL 2021-08-04 Nic [facility] ital 11:06:00 Karie ESTIMATED GFR 2021-08-04 [facility] 11:06:00 Alexandru Laxmanrao POC GLUCOSE 2021-08-04 Tammy Dumont [facility] 00:57:00 Donna POC GLUCOSE 2021-08-03 Tim [facility] 21:36:00 Donna HEPATITIS B CORE ANTIBODY TOTAL 2021-08-[address] [facility] 17:42:00 Alexandru Jose Manuelmanrao HEPATITIS B SURFACE AB, 2021-08-03 [facility] QUANTITATIVE 17:42:00 Alexandru Laxmanrao HEPATITIS C ANTIBODY 2021-08-03 [facility] ospital 17:42:00 Alexandru Laxmanrao HEPATITIS B SURFACE ANTIGEN 2021-08-03 [facility] 17:42:00 Alexandru Laxmanrao POC GLUCOSE 2021-08-03 Tim [facility] 16:38:00 Odnna POC GLUCOSE 2021-08-03 Tim [facility] 11:29:00 Donna HC COMPLETE BLD COUNT W/AUTO DIFF 2021-08-03 Ender Lucero [facility] 11:03:00 Karie BASIC METABOLIC PANEL 2021-08-03 Nic [facility] 11:03:00 Karie PHOSPHORUS LEVEL 2021-08-03 [facility] 11:03:00 Alexandru Laxmanrao PARATHYROID HORMONE 2021-08-03 [facility] 11:03:00 Eltin ESTIMATED GFR 2021-08-03 Rupali Lucero [facility] 11:03:00 Karie POC GLUCOSE 2021-08-03 Tammy Dumont [facility] 00:22:00 Donna CV STRESS TEST NUCLEAR CARDIO 2021-08-02 [facility] 21:45:00 Bahaeddin A. NM MYOCARDIAL PERFUSION REST 2021-08-02 [facility] STRESS 1 DAY 21:45:00 Bahaeddin A. POC GLUCOSE 2021-08-02 Tmamy Dumont [facility] 21:08:00 Donna POC GLUCOSE 2021-08-02 Tammy Dumont [facility] 16:34:00 Donna POC GLUCOSE 2021-08-02 Tim Tammy [facility] 11:19:00 Donna HC COMPLETE BLD COUNT W/AUTO DIFF 2021-08-02 [facility] 09:[facility]00 Karie BASIC METABOLIC PANEL 2021-08-02 Lucero [facility] 09:43:00 Karie MAGNESIUM LEVEL 2021-08-02 [facility] 09:43:00 Karie ESTIMATED GFR 2021-08-02 [facility] 09:43:00 Karie POC GLUCOSE 2021-08-02 Tammy Dumont [facility] 00:15:00 Donna POC GLUCOSE 2021-08-01 Tammy Dumont [facility] 20:02:00 Donna POC GLUCOSE 2021-08-01 Tammy Dumont [facility] 16:16:00 Donna POC GLUCOSE 2021-08-01 Tim Tammy [facility] 11:16:00 Donna BASIC METABOLIC PANEL 2021-08-01 [facility] 10:56:00 Theresa MAGNESIUM LEVEL [facility] Theresa PHOSPHORUS LEVEL 2021-08-01 [facility] 10:56:00 Theresa HC COMPLETE BLD COUNT W/AUTO DIFF 2021-08-01 [facility] 10:56:00 Karie ESTIMATED GFR 2021-08-01 Richard [facility] 10:56:00 Theresa ECG 12-LEAD 2021-08-01 [facility] 08:03:48 Bahaeddin A. POC GLUCOSE 2021-08-01 Tim, [facility] 01:35:00 Donna TTE COMPLETE, WO CONTRAST, W 2021-07-31 Lady [facility] DOPPLER ([id number]) 23:38:00 Bahaeddin A. POC GLUCOSE 2021-07-31 Dumont, [facility] 22:40:00 Donna COVID-19 QUALITATIVE RT-PCR 2021-07-31 Rupali Lucero [facility] 17:14:00 Karie POC GLUCOSE 2021-07-31 Tim [facility] 17:07:00 Donna POC GLUCOSE 2021-07-31 Dumont, [facility] 12:13:00 Donna B NATRIURETIC PEPTIDE 2021-07-31 [facility] 11:34:00 Eltin BASIC METABOLIC PANEL 2021-07-31 [facility] 11:34:00 Eltin HC COMPLETE BLD COUNT W/AUTO DIFF 2021-07-31 [facility] 11:34:00 Eltin TROPONIN T 2021-07-31 [facility] 11:34:00 Eltin ESTIMATED GFR 2021-07-31 [facility] 11:34:00 Eltin Plan of Care Planned Activity [...] Cessation Counseling and Screening (12+)] Future Scheduled 2022-12-23 SHINGLES VACCINES (2 Met [facility] Test 16:29:20 of 3) [code = SHINGLES VACCINES (2 of 3)] Future Scheduled 2022-12-23 BREAST CANCER [facility] Test 16:29:20 SCREENING [code = BREAST CANCER SCREENING] Future Scheduled 2022-12-23 COVID-19 VACCINE (4 - [facility] Test 16:29:20 Pfizer series) [code = COVID-19 VACCINE (4 - Pfizer series)] Future Scheduled 2022-12-23 INFLUENZA VACCINE Method [facility] Test 16:29:20 [code = INFLUENZA VACCINE] Future Scheduled 2022-12-23 Screening for [facility] Test 16:29:20 malignant neoplasm of colon (procedure) [code = 665482640] Future Scheduled 2022-12-23 Screening for [facility] Test 16:29:20 malignant neoplasm of colon (procedure) [code = 329768592] Future Scheduled 2022-12-23 Screening for [facility] Test 16:29:20 malignant neoplasm of colon (procedure) [code = 621832931] Future Scheduled 2022-12-23 DIABETIC FOOT EXAM [facility] Test 16:29:20 [code = DIABETIC FOOT EXAM] Future Scheduled 2022-12-23 Screening for [facility] Test 16:29:20 malignant neoplasm of colon (procedure) [code = 829806472] Future Scheduled 2022-12-23 Screening for [facility] Test 16:29:20 malignant neoplasm of colon (procedure) [code = 830422068] Future Scheduled 2022-12-23 DIABETES: RETINAL EYE [facility] Test 16:29:20 EXAM [code = DIABETES: RETINAL EYE EXAM] Future Scheduled 2022-11-04 [facility] 18:43:52 malignant neoplasm of colon (procedure) [code = 036897130] Future Scheduled 2022-11-04 [facility] 18:43:52 malignant neoplasm of colon (procedure) [code = 531936604] Future Scheduled 2022-11-04 [facility] Test 18:43:52 malignant neoplasm of colon (procedure) [code = 430196007] Future Scheduled 2022-11-04 DIABETIC FOOT EXAM [facility] Test 18:43:52 [code = DIABETIC FOOT EXAM] Future Scheduled 2022-11-04 [facility] Test 18:43:52 malignant neoplasm of colon (procedure) [code = 467370001] Future Scheduled 2022-11-04 [facility] Test 18:43:52 malignant neoplasm of colon (procedure) [code = 507697585] Future Scheduled 2022-11-04 DIABETES: RETINAL EYE [facility] Test 18:43:52 EXAM [code = DIABETES: RETINAL EYE EXAM] Future Scheduled 2022-11-04 SHINGLES VACCINES (2 [facility] 18:43:52 of 3) [code = SHINGLES VACCINES (2 of 3)] Future Scheduled 2022-11-04 BREAST CANCER [facility] Test 18:43:52 SCREENING [code = BREAST CANCER SCREENING] Future Scheduled 2022-11-04 COVID-19 VACCINE ([facility] Test 18:43:52 Pfizer series) [code = COVID-19 VACCINE (4 - Pfizer series)] Future Scheduled 2022-11-04 INFLUENZA VACCINE Method [facility] Test 18:43:52 [code = INFLUENZA VACCINE] Future Scheduled 2022-11-04 [facility] Test 18:43:52 malignant neoplasm of colon (procedure) [code = 860547976] Future Scheduled 2022-11-04 [facility] 18:43:52 malignant neoplasm of colon (procedure) [code = 167278629] Future Scheduled 2022-11-04 [facility] Test 18:43:52 malignant neoplasm of colon (procedure) [code = 358729998] Future Scheduled 2022-11-04 DIABETIC FOOT EXAM [facility] Test 18:43:52 [code = DIABETIC FOOT EXAM] Future Scheduled 2022-11-04 [facility] Test 18:43:52 malignant neoplasm of colon (procedure) [code = 574734989] Future Scheduled 2022-11-04 [facility] Test 18:43:52 malignant neoplasm of colon (procedure) [code = 072940140] Future Scheduled 2022-11-04 DIABETES: RETINAL EYE Me [facility] Test 18:43:52 EXAM [code = DIABETES: RETINAL EYE EXAM] Future Scheduled 2022-11-04 SHINGLES VACCINES ([address] [facility] Test 18:43:52 of 3) [code = SHINGLES VACCINES (2 of 3)] Future Scheduled 2022-11-04 BREAST CANCER [facility] Test 18:43:52 SCREENING [code = BREAST CANCER SCREENING] Future Scheduled 2022-11-04 COVID-19 VACCINE (4 - [facility] Test 18:43:52 Pfizer series) [code = COVID-19 VACCINE (4 - Pfizer series)] Future Scheduled 2022-11-04 INFLUENZA VACCINE Method is Hospital Test 18:43:52 [code = INFLUENZA VACCINE] Future Scheduled 2022-09-27 DIABETIC FOOT EXAM [facility] Test 12:29:06 [code = DIABETIC FOOT EXAM] Future Scheduled 2022-09-27 COLONOSCOPY SCREENING [facility] Test 12:29:06 [code = COLONOSCOPY SCREENING] Future Scheduled 2022-09-27 DIABETES: RETINAL EYE [facility] Test 12:29:06 EXAM [code = DIABETES: RETINAL EYE EXAM] Future Scheduled 2022-09-27 SHINGLES VACCINES (1 Met [facility] Test 12:29:06 of 2) [code = SHINGLES VACCINES (1 of 2)] Future Scheduled 2022-09-27 BREAST CANCER [facility] Test 12:29:06 SCREENING [code = BREAST CANCER SCREENING] Future Scheduled 2022-09-27 COVID-19 VACCINE (4 - [facility] Test 12:29:06 Booster for Pfizer series) [code = COVID-19 VACCINE (4 - Booster for Pfizer series)] Future Scheduled 2022-09-27 INFLUENZA VACCINE [facility] Test 12:29:06 [code = INFLUENZA VACCINE] Future Scheduled 2022-09-27 [facility] Test 12:29:06 [code = DIABETIC FOOT EXAM] Future Scheduled 2022-09-27 COLONOSCOPY SCREENING [facility] Test 12:29:06 [code = COLONOSCOPY SCREENING] Future Scheduled 2022-09-27 DIABETES: RETINAL EYE [facility] Test 12:29:06 EXAM [code = DIABETES: RETINAL EYE EXAM] Future Scheduled 2022-09-27 SHINGLES VACCINES ([address] [facility] Test 12:29:06 of 2) [code = SHINGLES VACCINES (1 of 2)] Future Scheduled 2022-09-27 BREAST CANCER [facility] 12:29:06 SCREENING [code = BREAST CANCER SCREENING] Future Scheduled 2022-09-27 COVID-19 VACCINE (4 - [facility] Test 12:29:06 Booster for Pfizer series) [code = COVID-19 VACCINE (4 - Booster for Pfizer series)] Future Scheduled 2022-09-27 INFLUENZA VACCINE Method is Hospital Test 12:29:06 [code = INFLUENZA VACCINE] Future Scheduled 2022-09-27 DIABETIC FOOT EXAM [facility] Test 12:29:06 [code = DIABETIC FOOT EXAM] Future Scheduled 2022-09-27 COLONOSCOPY SCREENING [facility] Test 12:29:06 [code = COLONOSCOPY SCREENING] Future Scheduled 2022-09-27 DIABETES: RETINAL EYE [facility] Test 12:29:06 EXAM [code = DIABETES: RETINAL EYE EXAM] Future Scheduled 2022-09-27 SHINGLES VACCINES (1 Met [facility] Test 12:29:06 of 2) [code = SHINGLES VACCINES (1 of 2)] Future Scheduled 2022-09-27 BREAST CANCER [facility] 12:29:06 SCREENING [code = BREAST CANCER SCREENING] Future Scheduled 2022-09-27 COVID-19 VACCINE (4 - [facility] Test 12:29:06 Booster for Pfizer series) [code = COVID-19 VACCINE (4 - Booster for Pfizer series)] Future Scheduled 2022-09-27 INFLUENZA VACCINE Method is Hospital Test 12:29:06 [code = INFLUENZA VACCINE] Future Scheduled 2022-08-20 DIABETIC FOOT EXAM [facility] Test 03:10:19 [code = DIABETIC FOOT EXAM] Future Scheduled 2022-08-20 COLONOSCOPY SCREENING [facility] Test 03:10:19 [code = COLONOSCOPY SCREENING] Future Scheduled 2022-08-20 DIABETES: RETINAL EYE [facility] Test 03:10:19 EXAM [code = DIABETES: RETINAL EYE EXAM] Future Scheduled 2022-08-20 SHINGLES VACCINES (1 Met [facility] Test 03:10:19 of 2) [code = SHINGLES VACCINES (1 of 2)] Future Scheduled 2022-08-20 BREAST CANCER [facility] Test 03:10:19 SCREENING [code = BREAST CANCER SCREENING] Future Scheduled 2022-08-20 COVID-19 VACCINE (4 - [facility] Test 03:10:19 Booster for Pfizer series) [code = COVID-19 VACCINE (4 - Booster for Pfizer series)] Future Scheduled 2022-08-20 INFLUENZA VACCINE [facility] Test 03:10:19 [code = INFLUENZA VACCINE] Future Scheduled 2022-07-19 DIABETIC FOOT EXAM [facility] Test 07:26:52 [code = DIABETIC FOOT EXAM] Future Scheduled 2022-07-19 COLONOSCOPY SCREENING [facility] Test 07:26:52 [code = COLONOSCOPY SCREENING] Future Scheduled 2022-07-19 DIABETES: RETINAL EYE [facility] Test 07:26:52 EXAM [code = DIABETES: RETINAL EYE EXAM] Future Scheduled 2022-07-19 SHINGLES VACCINES (1 Met [facility] Test 07:26:52 of 2) [code = SHINGLES VACCINES (1 of 2)] Future Scheduled 2022-07-19 BREAST CANCER [facility] Test 07:26:52 SCREENING [code = BREAST CANCER SCREENING] Future Scheduled 2022-07-19 COVID-19 VACCINE (4 - [facility] Test 07:26:52 Booster for Pfizer series) [...] SCREENING] Future Scheduled 2022-05-17 DIABETIC FOOT EXAM [facility] Test 10:42:08 [code = DIABETIC FOOT EXAM] Future Scheduled 2022-05-17 COLONOSCOPY SCREENING [facility] Test 10:42:08 [code = COLONOSCOPY SCREENING] Future Scheduled 2022-05-17 DIABETES: RETINAL EYE [facility] Test 10:42:08 EXAM [code = DIABETES: RETINAL EYE EXAM] Future Scheduled 2022-05-17 SHINGLES VACCINES ([address] [facility] Test 10:42:08 of 2) [code = SHINGLES VACCINES (1 of 2)] Future Scheduled 2022-05-17 BREAST CANCER [facility] Test 10:42:08 SCREENING [code = BREAST CANCER SCREENING] Future Scheduled 2022-05-17 COVID[facility]19 [facility]ACC[facility] Test 10:42:08 Booster for Pfizer series) [code = COVID-19 VACCINE (4 - Booster for Pfizer series)] Future Scheduled 2022-05-17 INFLUENZA VACCINE [facility] Test 10:42:08 [code = INFLUENZA VACCINE] [...] [facility] breast (procedure) [code = 416448739] Future Scheduled [address] [facility] 00:00:00 (combo) [code = CT Medical C enter Colonography (combo)] Future Scheduled [address] [facility] malignant neoplasm of [facility]ica [facility] Center colon (procedure) [code = 887332338] Future Scheduled [address] [facility] 00:00:00 malignant neoplasm of [facility] Center colon (procedure) [code = 485822785] Future Scheduled 1948 DXA SCAN [code = DXA [facility] Test 00:00:00 SCAN] [facility] Future Scheduled [address] [facility] Test 00:00:00 malignant neoplasm of [facility]ica [facility] Center colon (procedure) [code = 695874894] Future Scheduled [address] [facility] 00:00:00 malignant neoplasm of [facility] Center colon (procedure) [code = 794519463] Future Scheduled 1948 Sigmoidoscopy [facility] Future Scheduled [address] [facility] Test 00:00:00 malignant neoplasm of [facility]ica [facility] Center breast (procedure) [code = 913367009] Future Scheduled [address] [facility] 00:00:00 (combo) [code = CT Medical C enter Colonography (combo)] Future Scheduled [address] [facility] Test 00:00:00 malignant neoplasm of [facility]ica [facility] Center colon (procedure) [code = 067002965] Future Scheduled [address] [facility] Test 00:00:00 malignant neoplasm of [facility]ica [facility] Center colon (procedure) [code = 663772587] Future Scheduled 1948 DXA SCAN [code = DXA [facility] Test 00:00:00 SCAN] [facility] Future Scheduled [address] [facility] Test 00:00:00 malignant neoplasm of [facility]ica [facility] Center colon (procedure) [code = 400541536] Future Scheduled [address] [facility] 00:00:00 malignant neoplasm of [facility]ica [facility] Center colon (procedure) [code = 936484745] Future Scheduled 1948 [facility]oidoscopy [facility] S[facility]oscopy] [facility] Future Scheduled [address] [facility] Test 00:00:00 malignant neoplasm of [facility]ica [facility] Center breast (procedure) [code = 543288325] Future Scheduled [address] [facility] 00:00:00 (combo) [code = CT Medical C enter Colonography (combo)] Future Scheduled [address] [facility] Test 00:00:00 malignant neoplasm of Medica l Center colon (procedure) [code = 445796824] Future Scheduled [address] [facility] Test 00:00:00 malignant neoplasm of Medica l Center colon (procedure) [code = 317339300] Future Scheduled 1948 DXA SCAN [code = DXA [facility] Test 00:00:00 SCAN] [facility] Future Scheduled [address] [facility] Test 00:00:00 malignant neoplasm of Medica [facility] Center colon (procedure) [code = 846315997] Future Scheduled [address] [facility] Test 00:00:00 malignant neoplasm of Medica l Center colon (procedure) [code = 629196937] Future Scheduled 1948 Sigmoidoscopy [facility] S[facility]oscopy] [facility] Future Scheduled [address] [facility] Test 00:00:00 malignant neoplasm of Medica l Center breast (procedure) [code = 457436699] Future Scheduled [address] [facility] 00:00:00 (combo) [code = CT Medical C enter Colonography (combo)] Future Scheduled [address] [facility] colon (procedure) [code = 970118013] Future Scheduled [address] [facility]00 [facility] (procedure) [code = 812263737] Future Scheduled 1948 DXA SCAN [code = DXA [facility] 00:[facility]:00 SCAN] [facility] Future Scheduled [address] [facility] 00:[facility]:00 [facility] colon (procedure) [code = 854838681] Future Scheduled [address] [facility] 00:00:00 [facility] colon (procedure) [code = 283404378] Future Scheduled 1948 Sigmoid[facility]] [facility] Future Scheduled [address] [facility] 00:00:00 malignant [facility] breast (procedure) [code = 492669076] Future Scheduled [address] [facility] 00:00:00 (combo) [code = CT Medical C enter Colonography (combo)] Future Scheduled [address] [facility] 00:00:00 [facility] colon (procedure) [code = 570686122] Future Scheduled [address] [facility] 00:00:00 [facility] colon (procedure) [code = 124947850] Future Scheduled 1948 DXA SCAN [code = DXA [facility] 00:00:00 SCAN] [facility] Future Scheduled [address] [facility] 00:00:00 [facility] colon (procedure) [code = 630234349] Future Scheduled [address] [facility] 00:00:00 [facility] colon (procedure) [code = 111214803] Future Scheduled 1948 Sigmoidoscopy [facility]] [facility] Future Scheduled [address] [facility] 00:00:00 malignant [facility] breast (procedure) [code = 299136928] Future Scheduled [address] [facility] 00:00:00 (combo) [code = CT Medical C enter Colonography (combo)] Future Scheduled [address] [facility] 00:00:00 [facility] colon (procedure) [code = 300147891] Future Scheduled [address] [facility] 00:00:00 malignant [facility] colon (procedure) [code = 716625052] Future Scheduled 1948 DXA SCAN [code = DXA [facility] 00:00:00 SCAN] [facility] Future Scheduled [address] [facility] 00:00:00 [facility] colon (procedure) [code = 524957953] Future Scheduled [address] [facility] 00:00:00 [facility] colon (procedure) [code = 226161261] Future Scheduled 1948 [facility]oid[facility]] [facility] Future Scheduled [address] [facility] 00:00:00 malignant ne[facility] breast (procedure) [code = 672902054] Future Scheduled [address] [facility] 00:00:00 (combo) [code = CT Medical C enter Colonography (combo)] Future Scheduled [address] [facility] 00:00:00 malignant [facility] colon (procedure) [code = 327083235] Future Scheduled [address] [facility] 00:00:00 malignant ne[facility] colon (procedure) [code = 546844989] Future Scheduled 1948 DXA SCAN [code = DXA [facility] 00:00:00 SCAN] [facility] Future Scheduled [address] [facility] 00:00:00 [facility] colon (procedure) [code = 855955901] Future Scheduled [address] [facility] Test 00:00:00 malignant neoplasm of [facility] colon (procedure) [code = 468803332] Future Scheduled 1948 S[facility]oidoscopy [facility] S[facility]] [facility] Cent[facility] r Encounters Start End Encounter Admission Attending Care Care Encounter Source Date/Time Date/Time Type Type Clinicians Facility Department ID 2022-10-09 Outpatient 3 [id number] [facility] RE[facility] [id number] [facility] 14:26:14 [facility] [place] 2022-10-08 Outpatient 3 [id number] [facility] REF [id number] [facility] 10:03:46 [facility] [place] 2022-06-08 Inpatient EL Alfredo, HCACL DAYS [id number] [facility] 09:00:00 Greg 07 [facility] 2022-01-05 [facility] [id number] [facility] 13[facility] 2021-11-04 Outpatient [facility] [id number] [place] 14:10:46 [id number] [facility] 2021-08-11 Outpatient [facility] [id number] [place] 09:26:19 [id number] [facility] 2022-10-10 2022-10-26 Inpatient 3 Jose Martin, ENCPL CRD [id number] [facility] 17:08:00 11:30:00 Anirudh 0522 [facility] [place] 2022-07-05 2022-07-05 Orders Doctor MACKENZIE Cordon.2.840.114 [id number] [facility] 00:00:00 00:00:00 Only Unassigned, YARELI 350.1.13.10 ity of [place] [facility] 4.2.7.2.686 Kev as [phone] [place] [address] [address] 2022-04-01 2022-04-01 Orders Doctor MACKENZIE Salinas2.840.114 [id number] Univers 00:00:00 00:00:00 Only Unassigned, YARELI 350.1.13.10 ity of [place] [facility] 4.2.7.2.686 Kev as [id number] [address] 2022-03-24 2022-03-24 [facility]phone [facility] 1.2.566.841 [id number] Univers 00:00:00 00:00:00 Luc S HEALTH 350.1.13.10 it y of [place] 4.2.7.2.686 Kev as MARISA?BLEA [id number] Me garcía LOVE 198 [facility] OFFICE [facility] 2022-03-23 2022-03-23 Telephone [facility] 1.2.819.286 [id number] Univers 00:00:00 00:00:00 Luc S HEALTH 350.1.13.10 it y of [place] 4.2.7.2.686 Kev as MARISA?BLEA [phone] Me garcía LOVE 198 [facility] 2022-03-18 2022-03-18 Telephone [facility] 1.2.840.114 [id number] Univers 00:00:00 00:00:00 Alannah L HEALTH 350.1.13.10 it y of [place] 4.2.7.2.686 Kev as MARISA?BLEA [phone] Me garcía LOVE 198 [facility] 2022-03-16 2022-03-16 Telephone [facility] 1.2.840.114 [id number] Univers 00:00:00 00:00:00 Alannah L SPECIALTY 350.1.13.10 ity of [place] [id number] Wy garcía [place] [address] [place] [address] 2022-01-07 2022-01-18 Hospital UR Annalee Bey [facility] [id number] 17:48:00 16:48:00 Encounter Mauro Mendoza [facility] 2022-01-07 2022-01-18 [facility] [id number] 17:48[facility]00 16:48:00 ANNALEE 2022-01-07 2022-01-07 Travel [facility] [id number] [facility] 00:[facility] 00:00:00 [facility] 2022-01-02 2022-01-02 [facility] NUT [id number] Univers 00:00:00 00:00:00 ALANNAH [facility] 2021-09-06 2021-09-16 Hospital Trinidad Menard 1.2.840.1 10 [id number] Methodi 14:46:00 18:55:00 Encounter Corrine Osuna 87056.1.[address] 3.430.2.7 Hospit a .3.061461 l .8 2021-09-13 2021-09-13 Anesthesia Natasha, 1.2.840.1 [id number] Methodi 14:58:00 15:19:00 Event Edwin 20101.1.[address] Alannah 3.430.2.7 Hospit a .3.819805 l .8 2021-09-13 2021-09-13 Surgery John, 1.2.840.1 [id number] Methodi 14:22:00 14:27:[address] [facility] 3[facility]430[facility]7 [facility] a .3.902709 l .8 2021-09-06 2021-09-06 Travel 1.2.840.1 1.2.569.025 6556 [id number] Methodi 00:00:00 00:00:[address] 3.430.2.7 0.2.7.3.698 Ho spita .3.354682 084.8 l .8 2021-07-31 2021-08-13 Hospital Tammy Dumont 1.2.840.1 1045 [id number] Methodi 04:12:00 19:46:00 Encounter Edwin Ayers 30305.1.[address] Scot Chanellav 3.430.2.7 Hospita Annalee Nuñez .3.249905 l .8 2021-08-12 2021-08-12 Anesthesia Leodan Rebolledo 1.2.840.1 [id number] Methodi 18:09:00 19:38:[address] 3.430.2.7 Hospit a .3.533812 l .8 2021-08-12 2021-08-12 Surgery Ru, 1.2.840.1 [id number] 5782 Methodi 17:35:00 18:50:[address] 3.430.2.7 Hospit a .3.124607 l .8 2021-08-05 2021-08-05 Anesthesia Andre Navarroen 1.2.840.1 [id number] Methodi 15:12:00 16:16:00 Event Grazyna Martinez 72571.1.[address] 3.430.2.7 Hospit a .3.336483 l .8 2021-08-05 2021-08-05 Surgery Leiva, 1.2.840.1 [id number] 2625 Methodi 15:20:00 16:05:[address] 3.430.2.7 Hospit a .3.955223 l .8 2021-08-02 2021-08-02 Documentat Provider, 1.2.840.1 [id number] 2 [id number] Methodi 00:00:00 00:00:00 ion Unknown 10715.1.[address] 3.430.2.7 Hospit a .3.025125 l .8 2021-07-14 2021-07-14 Transcribe Shabana 1.2.840.1 [id number] Methodi 00:00:00 00:00:00 Orders , Zulema 72246.1.[address] 3.430.2.7 Hospit a .3.600584 l .8 2021-06-10 2021-06-10 Clinical 1.2.840.1 [id number] [id number] Methodi 15:45:00 15:58:[address] 3.430.2.7 Hospit a .3.744373 l .8 2021-06-10 2021-06-10 Travel 1.2.840.1 1.2.242.058 6273 [id number] Methodi 00:00:00 00:00:00 14707.1.1 350.1.13.43 572 3.430.2.7 0.2.7.3.698 spita .3.930173 084.8 l .8 2021-06-09 2021-06-09 Outpatient Sudheer_T VFP VFP [id number] 02-08 [facility] 11:40:00 11:40:00 [id number] Family Practic e 2021-06-01 2021-06-04 Outpatient AL-LAHIQ, [facility] [address] [id number] 9[address]14 [place] 00:00:00 00:00:[address] MAHA [address] 2020-08-05 2020-08-05 Outpatient [facility] [id number] [place] 00:00:00 00:00:00 , ZULEMA [address] 2020-07-09 2020-07-09 Outpatient [facility] [id number] [place] 00:00:00 00:00:[address] 2020-06-18 2020-06-18 Outpatient [facility] [id number] [place] 00:00:00 00:00:[address] 2020-04-05 2020-04-06 Outpatient AL-LAHIQ, [place] [address] 32858 63750 [place] 00:00:00 00:00:00 MAHA [address] 2020-03-22 2020-03-25 Inpatient AL-LAHIQ, [facility] [address] [id number] 4188 [place] 00:00:00 00:00:00 MAHA [address] 2020-02-27 2020-02-27 Outpatient HIGUERA, [facility] [id number] 2856 [place] 00:00:00 00:00:00 DAVID [address] 2020-02-17 2020-02-18 Outpatient AL-LAHIQ, [place] [address] 41139 40436 [place] 00:00:00 00:00:00 MAHA [address] 2020-01-17 2020-01-18 Emergency JOSE A, [place] [address] [id number] 46 [place] 00:00:00 00:00:00 SHAKEEL [address] 2019-10-23 2019-10-26 Inpatient AL-LAHIQ, [facility] [address] [id number] 5506 [place] 00:00:00 00:00:00 MAHA [address] 2019-08-05 2019-08-05 Outpatient PHUC-MICHAEL [facility] 655 [id number] [place] 00:00:00 00:00:00 , ZULEMA [address] 2019-07-10 2019-07-12 Inpatient ALEXANDRO, [facility] [id number] [place] 00:00:00 00:00:00 MAHA [address] 2019-03-27 2019-03-30 Outpatient BOAZ, [facility] 2100 [id number] [place] 00:00:00 00:00:00 SARAI [address] Results Test Description Test Time Test Comments Results Result Comments Source POC-Glucose meter 2022-01-18 12:22:13 Test Item Value Reference Range Interpretation Comme nts POC-Glucose Meter (test code = 102 mg/dL 70-110 : TESTED AT [facility] 1317 [facility] 1538) [place] [address]: Desizing Machine Operator/Techni faviola ID = [id number] for Yelling, Yoland a Lab Interpretation (test code = Normal 89141-2) [facility] [id number] 12:22:13 Test Item Value Reference Range Interpretation Comments POC-Glucose Meter (test 102 mg/dL 70-110 : TE STED AT [facility] code = 1538) [address] [place], [place] [address]: Desizing Machine Operator/Techni faviola ID = [id number] for Yelling, Yoland a Lab Interpretation (test Normal code = 97852-5) [facility] [id number] 12:22:13 Test Item Value Reference Range Interpretation Comments POC-Glucose Meter (test 102 mg/dL 70-110 : TE STED AT [facility] code = 1538) [address] [place], [place] [address]: Desizing Machine Operator/Techni faviola ID = [id number] for Yelling, [place]and a Lab Interpretation (test Normal code = 29110-0) [facility] [id number] 12:22:13 Test Item Value Reference Range Interpretation Comments POC-Glucose Meter (test 102 mg/dL 70-110 : TE STED AT [facility] code = 1538) [facility]7 [place] [address]: Desizing Machine Operator/Techni faviola ID = [id number] for Yelling, [place]and a Lab Interpretation (test Normal code = 86057-9) [facility]-Glucose [id number] 12:22:13 Test Item Value Reference Range Interpretation Comments POC-Glucose Meter (test 102 mg/dL 70-110 : TE STED AT [facility] code = 1538) [address] [place], [place] [address]: Desizing Machine Operator/Techni faviola ID = [id number] for Yelling, [place]and a Lab Interpretation (test Normal code = 94519-8) [facility]-Glucose [id number] 12:22:13 Test Item Value Reference Range Interpretation Comments POC-Glucose Meter (test 102 mg/dL 70-110 : TE STED AT [facility] code = 1538) [address] [place] [address]: Desizing Machine Operator/Techni faviola ID = [id number] for Yelling, [place]and a Lab Interpretation (test Normal code = 90373-1) [facility]-Glucose [id number] 12:22:13 Test Item Value Reference Range Interpretation Comments POC-Glucose Meter (test 102 mg/dL 70-110 : TE STED AT [facility] code = 1538) [address] [place] [address]: Desizing Machine Operator/Techni faviola ID = [id number] for Yelling, Yoland a Lab Interpretation (test Normal code = 12754-7) [facility]-GLUCOSE [id number] 12:22:13 Test Item Value Reference Range Interpretation Comments POC-GLUCOSE METER 102 mg/dL 70-110 : TESTED A T [facility] 1317 (BEAKER) (test code [facility], = 1538) [place] [address]: Desizing Machine Operator/Techni faviola ID = [id number] for [place] ing, Zuri BASIC METABOLIC [id number] 06:40:34 Test Item Value Reference Range Interpretation [...] not appl icable for dialysis patien ts Desizing Machine Operator ID - [id number] ID - [id number] ID - OPSTYKPYZ100Tzvyeqox ID - WOGPZXBYY329Xyygvvov ID - SIMLZYRTE936Piuqdjyw ID - RQJSIZXQD313Vfmrjvoj ID - YYKGYOJUB502Tounsnyj ID - FHKDMOFOZ002Zvvqlztd ID - CFAOVDAEJ939Lztbcxtu ID - TEJKOHFBJ553Bffwoupp ID - QGYZNGNTA328Rmpbvrkb ID - FXLUEWVSY533Ufghbirt ID - [id number]-LMFDRZU [id number] 19:58:07 Test Item Value Reference Range Interpretation Comments POC-GLUCOSE METER 126 mg/dL 70-110 H : TESTED A T [facility] 1317 (BEAKER) (test code [address], = 1538) [facility] 77 478: Desizing Machine Operator/Techni faviola ID = [id number] for Will Ina lewis POCT-GLUCOSE [id number] 17:18:36 Test Item Value Reference Range Interpretation Comments POC-GLUCOSE METER 128 mg/dL 70-110 H : Notified RN/MD: TESTED (BEAKER) (test code AT [facility] [address] = 1538) [place] [address]: Desizing Machine Operator/Techni faviola ID = [id number] for Marianok er, Mattitaben POCT-GLUCOSE [id number] 12:27:16 Test Item Value Reference Range Interpretation Comments POC-GLUCOSE METER 141 mg/dL 70-110 H : [facility] (test code AN POI NT [facility], = 1538) [place] [address]: Desizing Machine Operator/Techni faviola ID = [id number] for Thak er, Nikitaben POCT-GLUCOSE [id number] 08:42:44 Test Item Value Reference Range Interpretation Comments POC-GLUCOSE METER 152 mg/dL 70-110 H : Notified RN/MD: [facility] (test code AT [facility] [address] = 1538) [place] [address]: Desizing Machine Operator/Techni faviola ID = [id number] for Thak er, Nikitaben BASIC METABOLIC [id number] 05:53:56 Test Item Value Reference Range Interpretation [...] not appl icable for dialysis patien ts Desizing Machine Operator ID - [id number] ID - YHSFYBXBZ527Sopacwwu ID - DLBEKIFRW987Qklvyrro ID - VBIQCXAHJ155Pkajzfsm ID - ZKZOHZEFZ967Deydbwem ID - MJSDPGXLW782Tgabkwoi ID - ZAFHWZERK158Bnpjpvng ID - HBQKDABIV204Bwaznuzt ID - ANAWEXLFO532Wtydtcrn ID - QXPHRQWNK102Uytwtdwx ID - IOUWFKNVY697Ruiuagrj ID - CCGXWRFQI301Tbcfuyjb ID - EMIVKGQTJ514XEZZ-FJQINQJ [id number] 20:28:58 Test Item Value Reference Range Interpretation Comments POC-GLUCOSE METER 184 mg/dL 70-110 H : TESTED A T [facility] [address]17 (BEAKER) (test code [address], = 1538) [place] [address]: Desizing Machine Operator/Techni faviola ID = [id number] for Ina Agrawal POCT-GLUCOSE [id number] 15:57:54 Test Item Value Reference Range Interpretation Comments POC-GLUCOSE METER 187 mg/dL 70-110 H : TESTED A T [facility] 1317 (BEAKER) (test code [address], = 1538) [place] [address]: Desizing Machine Operator/Techni faviola ID = [id number] for Ej vergara, Aileen POCT-GLUCOSE [id number] 11:57:54 Test Item Value Reference Range Interpretation Comments POC-GLUCOSE METER 163 mg/dL 70-110 H : TESTED A T [facility] 1317 (BEAKER) (test code [address], = 1538) [place] [address]: Desizing Machine Operator/Techni faviola ID = [id number] for Ej vergara, Aileen POCT-GLUCOSE [id number] 07:59:00 Test Item Value Reference Range Interpretation Comments POC-GLUCOSE METER 129 mg/dL 70-110 H : TESTED A T [facility] 1317 (BEAKER) ([facility] = 1538) [place] [address]: Desizing Machine Operator/Techni faviola ID = [id number] for Aileen Loja POCT-GLUCOSE [id number] 20:24:24 Test Item Value Reference Range Interpretation Comments POC-GLUCOSE METER 185 mg/dL 70-110 H : TESTED A T [facility] 1317 (BEAKER) (test [facility], = 1538) [place] [address]: Desizing Machine Operator/Techni faviola ID = [id number] for Agustin Patel POCT-GLUCOSE [id number] 18:05:34 Test Item Value Reference Range Interpretation Comments POC-GLUCOSE METER 126 mg/dL 70-110 H : TESTED A T [facility] 1317 (BEAKER) ([facility] = [facility]) [place] [address]: Desizing Machine Operator/Techni faviola ID = [id number] for Consuelo Leija POCT-GLUCOSE [id number] 12:43:19 Test Item Value Reference Range Interpretation Comments POC-GLUCOSE METER 154 mg/dL 70-110 H : TESTED A T [facility] 1317 (BEAKER) (test code [facility] = 1538) [place] [address]: Desizing Machine Operator/Techni faviola ID = [id number] for Consuelo Leija POCT-GLUCOSE [id number] 07:44:17 Test Item Value Reference Range Interpretation Comments POC-GLUCOSE METER 142 mg/dL 70-110 H : TESTED A T [facility] 1317 (BEAKER) (test code [facility], = 1538) [place] [address]: Desizing Machine Operator/Techni faviola ID = [id number] for Consuelo Leija BASIC METABOLIC [id number] 05:55:22 Test Item Value Reference Range Interpretation [...] not appl icable for dialysis patien ts Desizing Machine Operator ID - LITOOperator ID - LITOOperator ID - LITOOperator ID - LITOOperator ID - LITOOperator ID - LITOOperator ID - LITOOperator ID - LITOOperator ID - LITOOperator ID - LITOOperator ID - LITOOperator ID - LITOOperator ID - MARTÍN POCT-GLUCOSE [id number] 20:53:58 Test Item Value Reference Range Interpretation Comments POC-GLUCOSE METER 194 mg/dL 70-110 H : TESTED A T [facility] 1317 (BEAKER) (test code [address], = 1538) [place] [address]: Desizing Machine Operator/Techni faviola ID = [id number] for Aileen Loja POCT-GLUCOSE [id number] 15:49:19 Test Item Value Reference Range Interpretation Comments POC-GLUCOSE METER 171 mg/dL 70-110 H : TESTED A T [facility] 1317 (BEAKER) (test code [address], = 1538) [place] [address]: Desizing Machine Operator/Techni faviola ID = [id number] for Aileen Loja SARS-CoV2/RT-PCR (Asymptomatic ONLY)2022-01-14 15:42:35 Test Item Value Reference Interpretation Comments Range SARS-COV2/RT-PCR Negative Negative The SARS-Co V-2 (test code = target nucleic 37362-1) acids are not detected in thi s [...] revoked sooner. Fact Sheet for Healthcare Providers: https://www.[employer]/Documents/Xp ert%20Xpress%20SAR S%20CoV-2/Fact%20S heets/302-3802%20S ARS-COV-2%20HEALTH CARE%20PROVIDERS%2 0FACT%20SHEET.pdf Fact Sheet for Healthcare Patients: https://www.[employer]/Documents/Xp ert%20Xpress%20SAR S%20CoV-2/Fact%20S heets/302-3801%20S ARS-COV-2%20PATIEN T%20FACT%20SHEET.p df Lab Interpretation Normal (test code = 71937-8) [facility]2022-01-14 15:42:35 Test Item Value Reference Interpretation Comments Range SARS-COV2/RT-PCR Negative Negative The SARS-Co V-2 (test code = target nucleic 80624-8) acids are not detected in thi s [...] revoked sooner. Fact Sheet for Healthcare Providers: https://www.[employer]/Documents/Xp ert%20Xpress%20SAR S%20CoV-2/Fact%20S heets/302-3802%20S ARS-COV-2%20HEALTH CARE%20PROVIDERS%2 0FACT%20SHEET.pdf Fact Sheet for Healthcare Patients: https://www.[employer]/Documents/Xp ert%20Xpress%20SAR S%20CoV-2/Fact%20S heets/302-3801%20S ARS-COV-2%20PATIEN T%20FACT%20SHEET.p df Lab Interpretation Normal (test code = 13756-1) [facility] (Asymptomatic ONLY)2022-01-14 15:42:35 Test Item Value Reference Interpretation Comments Range SARS-COV2/RT-PCR Negative Negative The SARS-Co V-2 (test code = target nucleic 47462-5) acids are not detected in thi s [...] revoked sooner. Fact Sheet for Healthcare Providers: https://www.[employer]/Documents/Xp ert%20Xpress%20SAR S%20CoV-2/Fact%20S heets/302-3802%20S ARS-COV-2%20HEALTH CARE%20PROVIDERS%2 0FACT%20SHEET.pdf Fact Sheet for Healthcare Patients: https://www.[employer]/Documents/Xp ert%20Xpress%20SAR S%20CoV-2/Fact%20S heets/302-3801%20S ARS-COV-2%20PATIEN T%20FACT%20SHEET.p df Lab Interpretation Normal (test code = 29868-4) [facility] (Asymptomatic ONLY)2022-01-14 15:42:35 Test Item Value Reference Interpretation Comments Range SARS-COV2/RT-PCR Negative Negative The SARS-Co V-2 (test code = target nucleic 76458-4) acids are not detected in thi s [...] revoked sooner. Fact Sheet for Healthcare Providers: https://www.[employer]/Documents/Xp ert%20Xpress%20SAR S%20CoV-2/Fact%20S heets/302-3802%20S ARS-COV-2%20HEALTH CARE%20PROVIDERS%2 0FACT%20SHEET.pdf Fact Sheet for Healthcare Patients: https://www.[employer]/Documents/Xp ert%20Xpress%20SAR S%20CoV-2/Fact%20S heets/302-3801%20S ARS-COV-2%20PATIEN T%20FACT%20SHEET.p df Lab Interpretation Normal (test code = 00408-1) [facility] (Asymptomatic ONLY)2022-01-14 15:42:35 Test Item Value Reference Interpretation Comments Range SARS-COV2/RT-PCR Negative Negative The SARS-Co V-2 (test code = target nucleic 33845-1) acids are not detected in thi s [...] revoked sooner. Fact Sheet for Healthcare Providers: https://www.[employer]/Documents/Xp ert%20Xpress%20SAR S%20CoV-2/Fact%20S heets/302-3802%20S ARS-COV-2%20HEALTH CARE%20PROVIDERS%2 0FACT%20SHEET.pdf Fact Sheet for Healthcare Patients: https://www.[employer]/Documents/Xp ert%20Xpress%20SAR S%20CoV-2/Fact%20S heets/302-3801%20S ARS-COV-2%20PATIEN T%20FACT%20SHEET.p df Lab Interpretation Normal (test code = 57472-8) [facility]2022-01-14 15:42:35 Test Item Value Reference Interpretation Comments Range SARS-COV2/RT-PCR Negative Negative The SARS-Co V-2 (test code = target nucleic 76592-5) acids are not detected in thi s [...] revoked sooner. Fact Sheet for Healthcare Providers: https://www.[employer]/Documents/Xp ert%20Xpress%20SAR S%20CoV-2/Fact%20S heets/302-3802%20S ARS-COV-2%20HEALTH CARE%20PROVIDERS%2 0FACT%20SHEET.pdf Fact Sheet for Healthcare Patients: https://[employer]Documents/Xp ert%20Xpress%20SAR S%20CoV-2/Fact%20S heets/302-3801%20S ARS-COV-2%20PATIEN T%20FACT%20SHEET.p df Lab Interpretation Normal (test code = 19099-6) [facility] [facility]22-01-14 15:42:35 Test Item Value Reference Interpretation Comments Range SARS-COV2/RT-PCR Negative Negative The SARS-Co V-2 (test code = target nucleic 24015-7) acids are not detected in thi s [...] revoked sooner. Fact Sheet for Healthcare Providers: https://www.[employer]/Documents/Xp ert%20Xpress%20SAR S%20CoV-2/Fact%20S heets/302-3802%20S ARS-COV-2%20HEALTH CARE%20PROVIDERS%2 0FACT%20SHEET.pdf Fact Sheet for Healthcare Patients: https://www.[employer]/Documents/Xp ert%20Xpress%20SAR S%20CoV-2/Fact%20S heets/302-3801%20S ARS-COV-2%20PATIEN T%20FACT%20SHEET.p df Lab Interpretation Normal (test code = 08964-7) [facility]2022-01-14 15:42:35 Test Item Value Reference Range Interpretation Comments SARS-COV2/RT-PCR Negative Negative The SARS-Co V-2 target (test code = nucleic acids a re not 5375359) detected in thi s specimen. Negative result [...] revoked sooner. Fact Sheet for Healthcare Providers: https://www.[employer]/Documents/Xpert%20Xpress%20SARS%20CoV-2/Fact%20Sheets/302-3802%51LFPH-EWG-8%20 HEALTHCARE%20PROVIDERS%20FACT%20SHEET.pdf Fact Sheet for Healthcare Patients: https://www.[employer]/Documents/Xpert%20Xp ress%20SARS%20CoV-2/Fact%20Sheets/302-3801%22CHOC-ZEJ-8%20PATIENT%20FACT%20SHEET .pdfRAD, CHEST, 1 VIEW, NON [id number] 15:02:00Reason for exam:- >SOBShould this be performed at the bedside?->Yes [facility] : 1950 Sex: FFINAL REPORT Chest [...] MDReport Verified Date/Time: 01/14/2022 15:02:16 Reading Location: [facility] Radiology Reading Room POCT-GLUCOSE [id number] 12:14:41 Test Item Value Reference Range Interpretation Comments POC-GLUCOSE METER 134 mg/dL 70-110 H : TESTED A T [facility] 1317 (BEAKER) (test code [address], = 1538) [facility] 77 478: Desizing Machine Operator/Techni faviola ID = [id number] for Aileen Loja PREMA, CENTRAL VENOUS CATH PLCMT (JUG/FEM) > 5 Y.O. WITH [id number] 11:25:00Reason for exam:->Non tunneled central line placement [facility] : 1950 Sex: FFINAL [...] MDReport Verified Date/Time: 01/14/2022 11:25:42 Reading Location: [facility] Radiology Reading Room POCT-GLUCOSE [id number] 08:34:59 Test Item Value Reference Range Interpretation Comments POC-GLUCOSE METER 147 mg/dL 70-110 H : TESTED A T [facility] 1317 (BEAKER) (test code [address], = 1538) [facility] 77 478: Desizing Machine Operator/Techni faviola ID = [id number] for Aileen Loja BASIC METABOLIC [id number] 06:37:03 Test Item Value Reference Range Interpretation [...] not appl icable for dialysis patien ts Desizing Machine Operator ID - LITOOperator ID - LITOOperator ID [...] 0-0 (BEAKER) (test code = 413) POCT-GLUCOSE [id number] 19:50:36 Test Item Value Reference Range Interpretation Comments POC-GLUCOSE METER 199 mg/dL 70-110 H : TESTED A T [facility] (BEAKER) (test code [facility] [address], = [address]38) [place] [address]: Desizing Machine Operator/Techni faviola ID = [id number] for Ina Agrawal POCT-GLUCOSE [id number] 16:52:12 Test Item Value Reference Range Interpretation Comments POC-GLUCOSE METER 150 mg/dL 70-110 H : TESTED A T [facility] [address] (BEAKER) (test code [address], = 1538) [place] [address]: Desizing Machine Operator/Techni faviola ID = [id number] for Aileen Loja POCT-GLUCOSE [id number] 14:05:10 Test Item Value Reference Range Interpretation Comments POC-GLUCOSE METER 122 mg/dL 70-110 H : TESTED A T [facility] [address] (BEAKER) (test code [address], = 1538) [place] [address]: Desizing Machine Operator/Techni faviola ID = [id number] for Nancy Douglass Blood gas, [id number] 09:06:33 Test Item Value Reference Range Interpretation Comments pH, Arterial (test code 7.45 7.35-7.45 = 2744-1) pCO2, Arterial (test 40 See_Comment [Autom ated message] code = 2019-8) The system Offermatic generated this result transmit kenneth reference range : 35 - 45 mm Hg. The reference range was not used to interpret this result as normal/abnormal . pO2, Arterial (test 79 See_Comment L [Automa kenneth message] code = 2703-7) The system Offermatic generated this result transmit kenneth reference range [...] 21 Lab Interpretation Abnormal (test code = 36221-2) [facility] [id number] 09:06:33 Test Item Value Reference Range Interpretation Comments pH, Arterial (test code 7.45 7.35-7.45 = 2744-1) pCO2, Arterial (test 40 See_Comment [Autom ated message] code = 2019-8) The system Offermatic generated this result transmit kenneth reference range : 35 - 45 mm Hg. The reference range was not used to interpret this result as normal/abnormal . pO2, Arterial (test 79 See_Comment L [Automa kenneth message] code = 2703-7) The system Offermatic generated this result transmit kenneth reference range [...] 21 Lab Interpretation Abnormal (test code = 62689-2) [facility], [id number] 09:06:33 Test Item Value Reference Range Interpretation Comments pH, Arterial (test code 7.45 7.35-7.45 = 2744-1) pCO2, Arterial (test 40 See_Comment [Autom ated message] code = 2019) The system Offermatic generated this result transmit kenneth reference range : 35 - 45 mm Hg. The reference range was not used to interpret this result as normal/abnormal . pO2, Arterial (test 79 See_Comment L [Automa kenneth message] code = 2703-7) The system Offermatic generated this result transmit kenneth reference range [...] 21 Lab Interpretation Abnormal (test code = 74566-5) [facility], [id number] 09:06:33 Test Item Value Reference Range Interpretation Comments pH, Arterial (test code 7.45 7.35-7.45 = 2744-1) pCO2, Arterial (test 40 See_Comment [Autom ated message] code = 2019-8) The system Offermatic generated this result transmit kenneth reference range : 35 - 45 mm Hg. The reference range was not used to interpret this result as normal/abnormal . pO2, Arterial (test 79 See_Comment L [Automa kenneth message] code = 2703-7) The system Offermatic generated this result transmit kenneth reference range [...] 21 Lab Interpretation Abnormal (test code = 76530-5) [facility] gas, [id number] 09:06:33 Test Item Value Reference Range Interpretation Comments pH, Arterial (test code 7.45 7.35-7.45 = 2744-1) pCO2, Arterial (test 40 See_Comment [Autom ated message] code = 2019-8) The system Offermatic generated this result transmit kenneth reference range : 35 - 45 mm Hg. The reference range was not used to interpret this result as normal/abnormal . pO2, Arterial (test 79 See_Comment L [Automa kenneth message] code = 2703-7) The system Offermatic generated this result transmit kenneth reference range [...] 21 Lab Interpretation Abnormal (test code = 40459-5) [facility], [id number] 09:06:33 Test Item Value Reference Range Interpretation Comments pH, Arterial (test code 7.45 7.35-7.45 = 2744-1) pCO2, Arterial (test 40 See_Comment [Autom ated message] code = 2019-) The system Offermatic generated this result transmit kenneth reference range : 35 - 45 mm Hg. The reference range was not used to interpret this result as normal/abnormal . pO2, Arterial (test 79 See_Comment L [Automa kenneth message] code = 2703-7) The system Offermatic generated this result transmit kenneth reference range [...] 21 Lab Interpretation Abnormal (test code = 68892-8) [facility] gas, [id number] 09:06:33 Test Item Value Reference Range Interpretation Comments pH, Arterial (test code 7.45 7.35-7.45 = 2744-1) pCO2, Arterial (test 40 See_Comment [Autom ated message] code = 2018-) The system Offermatic generated this result transmit kenneth reference range : 35 - 45 mm Hg. The reference range was not used to interpret this result as normal/abnormal . pO2, Arterial (test 79 See_Comment L [Automa kenneth message] code = 2703-7) The system Offermatic generated this result transmit kenneth reference range [...] 21 Lab Interpretation Abnormal (test code = 38911-3) [facility], [id number] 09:06:33 Test Item Value Reference Range Interpretation [...] (BEAKER) (test code = 1819) 21.0 POCT-GLUCOSE [id number] 08:36:44 Test Item Value Reference Range Interpretation Comments POC-GLUCOSE METER 132 mg/dL 70-110 H : TESTED A T [facility] (BEAKER) ([facility] [address] = [address] 77 [address]: Desizing Machine Operator/Techni faviola ID = [id number] for Aileen Loja TSH/FREE T4 IF [id number] 08:14:31 Test Item Value Reference Range Interpretation Comments THYROID STIMULATING HORMONE 1.790 uIU/mL 0.350-5.500 (BEAKER) (test code = 772) Desizing Machine Operator ID - DSENSONCOMPREHENSIVE METABOLIC [id number] 08:04:08 Test Item Value Reference Range Interpretation [...] eGFR (test code = 1092) mL/min/1.73 values S tage Description sq m Result G1 Dulce l [...] not appl icable for dialysis patien ts Desizing Machine Operator ID - DSENSONOperator ID - DSENSONOperator ID - DSENSONOperator ID - DSENSONOperator ID - DSENSONOperator ID - DSENSONOperator ID - DSENSONOperator ID - DSENSONOperator ID - DSENSONOperator ID - DSENSONOperator ID - DSENSONOperator ID - DSENSONOperator ID - DSENSONOperator ID - DSENSONOperatorID - DSENSONOperator ID - DSENSONOperator ID - DSENSONOperator ID - DSENSONOperator ID - DSENSONTROPOMONA [id number] 08:03:10 Test Item Value Reference Range Interpretation Comments TROPONIN I (LORENAAKER) (test code = 0.07 ng/mL 0.00-0.15 397) [...] failure, acidosis, acute neurological disease, and persistent tachyarrhythmia.Desizing Machine Operator ID - DSENSONCT, BRAIN, WITHOUT [id number] 07:49:00 [facility] : 1950 Sex: FFINAL [...] recommended for further characterization. Signed: Suzi Askew Verified Date/Time: 01/13/2022 07:49:20 CBC W/PLT COUNT & AUTO [id number] 07:39:37 Test Item Value Reference Range Interpretation [...] PERCENT (BEAKER) (test code = 2801) POCT-GLUCOSE [id number] 07:15:45 Test Item Value Reference Range Interpretation Comments POC-GLUCOSE METER 127 mg/dL 70-110 H : TESTED A T [facility] [address] (BEAKER) (test code [address], = 1538) [place] [address]: Desizing Machine Operator/Techni faviola ID = [id number] for Aileen Loja POCT-GLUCOSE [id number] 06:32:48 Test Item Value Reference Range Interpretation Comments POC-GLUCOSE METER 133 mg/dL 70-110 H : TESTED A T [facility] [address] (BEAKER) (test code [facility] 1538[facility] [place] [address]: Desizing Machine Operator/Techni faviola ID = [id number] for Mekhi bi, [place] POCT-GLUCOSE [id number] 21:05:05 Test Item Value Reference Range Interpretation Comments POC-GLUCOSE METER 195 mg/dL 70-110 H : TESTED A T [facility] [address] (BEAKER) (test code [address], = 1538) [place] [address]: Desizing Machine Operator/Techni faviola ID = [id number] for Mekhi bi, [place] POCT-GLUCOSE [id number] 19:32:35 Test Item Value Reference Range Interpretation Comments POC-GLUCOSE METER 180 mg/dL 70-110 H : TESTED A T [facility] [address] (BEAKER) (test code [address], = 1538) [place] [address]: Desizing Machine Operator/Techni faviola ID = [id number] for [place] ins, Odalys POCT-GLUCOSE [id number] 19:30:16 Test Item Value Reference Range Interpretation Comments POC-GLUCOSE METER 50 mg/dL 70-110 L : TESTED A T [facility] [address] (BEAKER) (test code = [address], 1538) [place] [address]: Desizing Machine Operator/Techni faviola ID = [id number] for [place] ins, Odalys POCT-GLUCOSE [id number] 18:09:32 Test Item Value Reference Range Interpretation Comments POC-GLUCOSE METER 63 mg/dL 70-110 L : TESTED A T [facility] [address] (BEAKER) (test code = [address], 15[address]) [facility] 77 478: Desizing Machine Operator/Techni faviola ID = [id number] for Robe Agrawal, TUNNELED CATHETER [id number] 17:04:00Reason for exam:->dialysis catheter with poor flows on dialysis, very positional - please place tunneled dialysis catheter in a new position. [facility] : 1950 Sex: FFINAL REPORT Tunneled dialysis catheter exchange, 01/12/2022. History: Renal failure, poor flow through the existing catheter. Modality: Sonography and fluoroscopy. Sedation: None. Therapeutic Strategy Lead: Mitzy. French Pastry Cook: None. Approach: Internal jugular vein - right. [...] removed and a new 23 cm 15.5 Malaysian Duraflow 2 catheter was advanced through the [...] MDReport Verified Date/Time: 01/12/2022 17:04:33 Reading Location: [facility] Reading Room POCT-GLUCOSE [id number] 12:20:13 Test Item Value Reference Range Interpretation Comments POC-GLUCOSE METER 107 mg/dL 70-110 : TESTED A T [facility] [address] (BEAKER) (test code [address], = 1538) [place] [address]: Desizing Machine Operator/Techni faviola ID = [id number] for Will iams, Robe POCT-GLUCOSE [id number] 09:01:23 Test Item Value Reference Range Interpretation Comments POC-GLUCOSE METER 118 mg/dL 70-110 H : TESTED A T [facility] [address] (BEAKER) (test code [address], = 1538) [place] [address]: Desizing Machine Operator/Techni faviola ID = [id number] for Will iams, Robe CBC W/PLT COUNT & AUTO [id number] 06:58:41 Test Item Value Reference Range Interpretation [...] code = 1+ few 961) BASIC METABOLIC [id number] 06:30:57 Test Item Value Reference Range Interpretation [...] not appl icable for dialysis patien ts Desizing Machine Operator ID - LITOOperator ID - LITOOperator ID - LITOOperator ID - LITOOperator ID - LITOOperator ID - LITOOperator ID - LITOOperator ID - LITOOperator ID - LITOOperator ID - [id number] 06:19:11 Test Item Value Reference Range Interpretation Comments MAGNESIUM (BEAKER) (test code = 1.9 mg/dL 1.5-3.0 627) Desizing Machine Operator ID - LITOOperator ID - LITOOperator ID - LITOOperator ID - MARTÍN [id number] 06:16:11 Test Item Value Reference Range Interpretation Comments PHOSPHORUS (BEAKER) (test code = 3.4 mg/dL 2.5-4.5 604) Desizing Machine Operator ID - LITOPROTHROMBIN TIME/[id number] 06:03:04 Test Item Value Reference Range Interpretation Comments PROTIME (BEAKER) 12.4 seconds 9.3-12.0 H Final Infor mation (test code = 759) (Auto Outp ut) INR (BEAKER) (test 1.14 See_Comment Final Inf ormation code = 370) (Auto Output) [Automated mess age] The system Reeher generated this result transmitted ref erence range: <=5.90. The reference range was not used to int erpret this result as normal/abnormal . RECOMMENDED COUMADIN/WARFARIN INR THERAPY RANGESSTANDARD DOSE: 2.0 - 3.0 Includes: PROPHYLAXIS for venous thrombosis, systemic embolization; TREATMENT for venous thrombosis and/or pulmonary embolus.HIGH RISK: Target INR is 2.5-3.5 for patients with mechanical heart valves.[id number] 06:03:04 Test Item Value Reference Range Interpretation Comments PARTIAL THROMBOPLASTIN 29.5 seconds 23.0-35.0 Final Information TIME (BEAKER) (test (Auto Ou tput) code = 760) POCT-GLUCOSE [id number] 20:00:47 Test Item Value Reference Range Interpretation Comments POC-GLUCOSE METER 172 mg/dL 70-110 H : TESTED A T [facility] (BEAKER) (test code [facility] [address], = 1538) [place] [address]: Desizing Machine Operator/Techni faviola ID = [id number] for Will iams, Ina POCT-GLUCOSE [id number] 18:09:30 Test Item Value Reference Range Interpretation Comments POC-GLUCOSE METER 121 mg/dL 70-110 H : TESTED A T [facility] (BEAKER) ([facility] [address] = [facility] [place] [address]: Desizing Machine Operator/Techni faviola ID = [id number] for Will iams, Robe POCT-GLUCOSE [id number] 12:48:21 Test Item Value Reference Range Interpretation Comments POC-GLUCOSE METER 102 mg/dL 70-110 : TESTED A T [facility] [address] (BEAKER) (test code [address], = 1538) [place] [address]: Desizing Machine Operator/Techni faviola ID = [id number] for Kerline Gallegos POCT-GLUCOSE [id number] 08:00:17 Test Item Value Reference Range Interpretation Comments POC-GLUCOSE METER 119 mg/dL 70-110 H : TESTED A T [facility] [address] (BEAKER) (test code [address], = 1538) [place] [address]: Desizing Machine Operator/Techni faviola ID = [id number] for Robe Agrawal POCT-GLUCOSE [id number] 21:28:11 Test Item Value Reference Range Interpretation Comments POC-GLUCOSE METER 227 mg/dL 70-110 H : TESTED A T [facility] [address] (BEAKER) (test code [address], = 1538) [place] [address]: Desizing Machine Operator/Techni faviola ID = [id number] for Libia Pop POCT-GLUCOSE [id number] 15:35:44 Test Item Value Reference Range Interpretation Comments POC-GLUCOSE METER 168 mg/dL 70-110 H : TESTED A T [facility] [address] (BEAKER) (test code [address], = 1538) [place] [address]: Desizing Machine Operator/Techni faviola ID = [id number] for Maribel Jimenez, REPL CVC/TUNNELED W/O [id number] 11:59:00 [facility] : 1950 Sex: FFINAL REPORT [...] a permanent image was stored. Catheter size (Malaysian): 15.5Catheter flush: Heparin (100 units/mL) Abbie sureThe [...] MDReport Verified Date/Time: 01/10/2022 11:59:48 Reading Location: [facility] Radiology Reading Room POCT-GLUCOSE [id number] 11:32:33 Test Item Value Reference Range Interpretation Comments POC-GLUCOSE METER 105 mg/dL 70-110 : TESTED A T [facility] 1317 (BEAKER) (test code [address], = 1538) [facility] 77 478: Desizing Machine Operator/Techni faviola ID = [id number] for [facility] jamshid, Maribel BASIC METABOLIC [id number] 04:51:32 Test Item Value Reference Range Interpretation [...] not appl icable for dialysis patien ts Desizing Machine Operator ID - LITOOperator ID - LITOOperator ID - LITOOperator ID - LITOOperator ID - LITOOperator ID - LITOOperator ID - LITOOperator ID - LITOOperator ID - LITOOperator ID - [id number] 04:50:58 Test Item Value Reference Range Interpretation Comments MAGNESIUM (BEAKER) (test code = 2.0 mg/dL 1.5-3.0 627) Desizing Machine Operator ID - LITOOperator ID - LITOOperator ID - LITOOperator ID - MARTÍN [id number] 04:48:19 Test Item Value Reference Range Interpretation Comments PHOSPHORUS (BEAKER) (test code = 3.9 mg/dL 2.5-4.5 604) Desizing Machine Operator ID - [id number] 04:44:00 Test Item Value Reference Range Interpretation Comments PARTIAL THROMBOPLASTIN 51.7 seconds 23.0-35.0 H Final Information TIME (BEAKER) (test (Auto Ou tput) code = 760) CBC W/PLT COUNT & AUTO [id number] 04:24:30 Test Item Value Reference Range Interpretation [...] PERCENT (BEAKER) (test code = 2801) POCT-GLUCOSE [id number] 21:26:47 Test Item Value Reference Range Interpretation Comments POC-GLUCOSE METER 127 mg/dL 70-110 H : TESTED A T [facility] (BEAKER) (test code [facility] [address], = 1538) [facility] 77 [address]: Desizing Machine Operator/Techni faviola ID = [id number] for Libia Pop [id number] 20:08:11 Test Item Value Reference Range Interpretation Comments PARTIAL THROMBOPLASTIN 41.3 seconds 23.0-35.0 H Final Information TIME (BEAKER) (test (Auto Ou tput) code = 760) POCT-GLUCOSE [id number] 17:14:06 Test Item Value Reference Range Interpretation Comments POC-GLUCOSE METER 154 mg/dL 70-110 H : TESTED A T [facility] [address] (BEAKER) (test code [address], = 1538) [place] [id number]: Desizing Machine Operator/Techni faviola ID = [id number] for Aileen Loja POCT-GLUCOSE [id number] 11:55:38 Test Item Value Reference Range Interpretation Comments POC-GLUCOSE METER 153 mg/dL 70-110 H : TESTED A T [facility] [address] (BEAKER) (test code [address], = 1538) [place] [address]: Desizing Machine Operator/Techni faviola ID = [id number] for Maribel Jimenez HEPATITIS B SURFACE [id number] 11:29:52 Test Item Value Reference Range Interpretation Comments HEPATITIS B SURFACE ANTIBODY 53.8 mIU/mL <8.0 H (BEAKER) (test code = 647) Desizing Machine Operator ID - [id number] 10:04:36 Test Item Value Reference Range Interpretation Comments PARTIAL THROMBOPLASTIN 36.3 seconds 23.0-35.0 H Final Information TIME (AKER) (test (Auto Ou tput) code = 760) POCT-GLUCOSE [id number] 07:31:03 Test Item Value Reference Range Interpretation Comments POC-GLUCOSE METER 111 mg/dL 70-110 H : TESTED A T [facility] [address] (BEAKER) (test code [address], = 1538) [place] [address]: Desizing Machine Operator/Techni faviola ID = [id number] for Maribel Jimenez [id number] 06:13:46 Test Item Value Reference Range Interpretation Comments MAGNESIUM (BEAKER) (test code = 1.8 mg/dL 1.5-3.0 627) Desizing Machine Operator ID - [id number] ID - [id number] ID - VYCGDEWMV190Tajzwtbc ID - [id number] METABOLIC [id number] 06:12:49 Test Item Value Reference Range Interpretation [...] not appl icable for dialysis patien ts Desizing Machine Operator ID - [id number] ID - IJXFTHCEI873Ugdqfgin ID - SAPOMGJUA313Wgyczbjd ID - FGDWJCODC248Bqjgoubj ID - PVESRLVMS417Tilkuovm ID - QGNZKJILO073Svbavaov ID - KVWWNYCCA515Ytxepsjt ID - WZKJSYASJ031Wxonozbk ID - ZRIJSNDIP671Satfgdzk ID - [id number] 06:10:51 Test Item Value Reference Range Interpretation Comments PHOSPHORUS (BEAKER) (test code = 3.0 mg/dL 2.5-4.5 604) Desizing Machine Operator ID - [id number] W/PLT COUNT & AUTO [id number] 05:49:35 Test Item Value Reference Range Interpretation [...] PERCENT (BEAKER) (test code = 2801) POCT-GLUCOSE [id number] 05:17:03 Test Item Value Reference Range Interpretation Comments POC-GLUCOSE METER 108 mg/dL 70-110 : TESTED A T [facility] (BEAKER) (test code [facility] [address], = 1538) [facility] [address]: Desizing Machine Operator/Techni faviola ID = [id number] for esperanza Abraham [id number] 01:14:37 Test Item Value Reference Range Interpretation Comments PARTIAL THROMBOPLASTIN 37.5 seconds 23.0-35.0 H Final Information TIME (BEAKER) (test (Auto Ou tput) code = 760) HEPATITIS B SURFACE [id number] 18:36:43 Test Item Value Reference Range Interpretation Comments HEPATITIS B SURFACE ANTIGEN (2) Nonreactive Nonreactive (BEAKER) (test code = 2585) Desizing Machine Operator ID - [id number] [id number] 17:00:29 Test Item Value Reference Range Interpretation Comments POC-GLUCOSE METER 131 mg/dL 70-110 H : TESTED A T [facility] [address] (BEAKER) (test code [address], = 1538) [place] [address]: Desizing Machine Operator/Techni faviola ID = [id number] for Migel Holt [id number] 16:38:44 Test Item Value Reference Range Interpretation Comments PARTIAL THROMBOPLASTIN 42.5 seconds 23.0-35.0 H Final Information TIME (BEAKER) (test (Auto Ou tput) code = 760) POCT-GLUCOSE [id number] 12:29:39 Test Item Value Reference Range Interpretation Comments POC-GLUCOSE METER 168 mg/dL 70-110 H : TESTED A T [facility] [address] (BEAKER) (test code [address], = 1538) [place] [address]: Desizing Machine Operator/Techni faviola ID = [id number] for Migel Holt POCT-GLUCOSE [id number] 08:10:36 Test Item Value Reference Range Interpretation Comments POC-GLUCOSE METER 136 mg/dL 70-110 H : TESTED A T [facility] (BEAKER) ([facility] [address] [facility] [place] [address]: Desizing Machine Operator/Techni faviola ID = [id number] for Migel Holt BASIC METABOLIC [id number] 06:18:43 Test Item Value Reference Range Interpretation [...] (test code = 697) EGFR (BEAKER) 12 Interpretati on of eGFR (test code = [...] not appl icable for dialysis patien ts Desizing Machine Operator ID - LITOOperator ID - LITOOperator ID - LITOOperator ID - LITOOperator ID - LITOOperator ID - LITOOperator ID - LITOOperator ID - LITOOperator ID - LITOOperator ID - [id number] 06:17:29 Test Item Value Reference Range Interpretation Comments MAGNESIUM (BEAKER) (test code = 1.6 mg/dL 1.5-3.0 627) Desizing Machine Operator ID - LITOOperator ID - LITOOperator ID - LITOOperator ID - MARTÍN HEMOGLOBIN [id number] 06:16:10 Test Item Value Reference Range Interpretation Comments HEMOGLOBIN A1C (BEAKER) (test code = 8.5 % 4.3-6.1 H 368) Desizing Machine Operator ID - [id number] 06:14:08 Test Item Value Reference Range Interpretation Comments PHOSPHORUS (BEAKER) (test code = 5.0 mg/dL 2.5-4.5 H 604) Desizing Machine Operator ID - [id number] 05:59:43 Test Item Value Reference Range Interpretation Comments PARTIAL THROMBOPLASTIN 45.4 seconds 23.0-35.0 H Final Information TIME (BEAKER) (test (Auto Ou tput) code = 760) CBC W/PLT COUNT & AUTO [id number] 05:48:29 Test Item Value Reference Range Interpretation [...] H PERCENT (BEAKER) (test code = 2801) [id number] 21:22:07 Test Item Value Reference Range Interpretation Comments PARTIAL THROMBOPLASTIN 26.5 seconds 23.0-35.0 Final Information TIME (BEAKER) (test (Auto Ou tput) code = 760) POCT-GLUCOSE [id number] 21:12:37 Test Item Value Reference Range Interpretation Comments POC-GLUCOSE METER 136 mg/dL 70-110 H : TESTED A T [address] (BEAKER) (test code [address], = 1538) [facility] 77 478: Desizing Machine Operator/Techni faviola ID = [id number] for esperanza Abraham POC [id number] 16:00:00 Test Item Value Reference Range Interpretation Comments POC glucose (test code = 158 mg/dL 65-99 H Ope rator Name: [id number]) Bob tilley ID: [id number] Lab Interpretation (test Abnormal code = 24797-0) [facility] [id number] 16:00:00 Test Item Value Reference Range Interpretation Comments POC glucose (test code = 158 mg/dL 65-99 H Ope rator Name: [id number]) Bob tilley ID: [id number] Lab Interpretation (test Abnormal code = 45048-0) [facility] pathology [id number] 15:05:25 Test Item Value Reference Range Interpretation Comments Case number (test code = [id number]) Surgical pathology See link below for report (test code = PDF Lab Report 7118) Result status (test code This is Final Report = [id number]) [id number] [facility] [id number] 15:05:25 Test Item Value Reference Range Interpretation Comments Case number (test code = [id number]) Surgical pathology See link below for report (test code = PDF Lab Report 2255) Result status (test code This is Final Report = [id number]) for [id number]2022-04-20 12:23:18 Test Item Value Reference Range [...] of 12-AUG-2021 06:02,-No significant change was found- [address]2022-04-20 12:23:18 Test Item Value Reference Range [...] of 12-AUG-2021 06:02,-No significant change was found- [facility] ED Preliminary Interpretation - Not an [id number] 21:23:51 Test Item Value Reference Range Interpretation Comments VALERIANO (test code = VALERIANO) Marley Cronin NP-C 09/07/2021 9:29 [facility] ED Preliminary Interpretation - Not an OrderPerformed by: Marley Cronin NP-CAuthorized by: Trinidad Menard MD ECG reviewed by ED Physician in the absence of a manifest clerk: no Previous ECG: Previous ECG: UnavailableInterpretat ion: Interpretation: abnormal Rate: ECG rate: 80 ECG rate assessment: normal Rhythm: Rhythm: paced Pacing: Type of pacing: VentricularEctopy: Ectopy: none QRS: QRS axis: Normal QRS intervals: NormalConduction: Conduction: normal ST segments: ST segments: Normal Lab Interpretation Abnormal (test code = 34392-3) [facility] ED Preliminary Interpretation - Not an [id number] 21:23:51 Test Item Value Reference Range Interpretation Comments VALERIANO (test code = VALERIANO) Marley Cronin NP-C 09/07/2021 9:29 [facility] Preliminary Interpretation - Not an OrderPerformed by: Marley Cronin NP-CAuthorized by: Trinidad Menard MD ECG reviewed by ED Physician in the absence of a manifest clerk: no Previous ECG: Previous ECG: UnavailableInterpretat ion: Interpretation: abnormal Rate: ECG rate: 80 ECG rate assessment: normal Rhythm: Rhythm: paced Pacing: Type of pacing: VentricularEctopy: Ectopy: none QRS: QRS axis: Normal QRS intervals: NormalConduction: Conduction: normal ST segments: ST segments: Normal Lab Interpretation Abnormal (test code = 34323-6) [facility] [Presence] in Respiratory specimen by LANG with probe [id number] 13:39:12 Test Item Value Reference Range Interpretation Comments SARS-CoV-2 (COVID-19) RNA Not detected [Presence] in Respiratory specimen by LANG with probe detection (test code = 49775-4) Whether patient is employed in a Unknown healthcare setting (test code = 11256-7) Whether the patient has symptoms Unknown related to condition of interest (test code = 48209-6) Whether the patient was Unknown hospitalized for condition of interest (test code = 64011-9) Whether the patient was admitted Unknown to intensive care unit (ICU) for condition of interest (test code = 13019-2) Whether patient resides in a Unknown congregate care setting (test code = 87621-7) status (test code = Unknown 08409-5) Date and time of symptom onset Unknown (test code = 41479-9) [facility] [id number] 02:36:07 Test Item Value Reference Range Interpretation Comments Target HR (test code 148.00 bpm = 5668847587) Resting HR (test 83 BPM code = 0541716113) Resting BP (test 178/79 mmHg code = 2485572700) Percent HR (test 54.05 % code = 8779449858) Post Peak HR (test 80 bpm code = 0132867445) Post Peak BP (test 161/77 mmHg code = 0681139519) Radiology Study observation (narrative) (test code = 30709-7) VALERIANO (test code = Study Quality: good. [...] left ventricle ejection fraction is mildly reduced. [facility] stress [id number] 22:06:40 Test Item Value Reference Range Interpretation Comments Resting BP (test code = 2888321597) Protocol Name (test LEXISCAN code = 4874072201) Time in Exercise 00:01:00 Phase (test code = 6257014748) Max Systolic BP (test code = 9725569918) Max Diastolic BP (test code = 4360285749) Max Heart Rate (test code = 7270655768) Max Predicted Heart Rate (test code = 9804071686) Test Indication (test code = 5331414687) Arrhy During Ex (test code = 3136891268) ECG Interp Before EX (test code = 7084316992) ECG Interp During Ex (test code = 4461313329) Ex Summary Comment (test code = 8233613280) Overall HR Response to Exercise (test code = 3522959500) Overall BP Response To Exercise (test code = 3877565062) Reason for Termination (test code = 2754951616) Stress Test Waveform interpreted in Impression (test code report associated with = 6067602131) image study. No interpretation is provided as part of this Stress ECG report.-Electronically Signed By Caron Medina MD ([id number]), associate entertainment editor Daysi Chapman ([id number]) on 08/02/2021 5:06:37 PM [facility] [id number] 22:06:40 Test Item Value Reference Range Interpretation Comments Resting BP (test code = 5222300825) Protocol Name (test LEXISCAN code = 5010294615) Time in Exercise 00:01:00 Phase (test code = 8707035971) Max Systolic BP (test 178 code = 5148730937) Max Diastolic BP 79 (test code = 7328767089) Max Heart Rate (test 81 code = 3162498310) Max Predicted Heart 148 Rate (test code = 2603246891) Test Indication (test code = 9060522502) Arrhy During Ex (test code = 7854535356) ECG Interp Before EX (test code = 2878587829) ECG Interp During Ex (test code = 5899097734) Ex Summary Comment (test code = 7309641183) Overall HR Response to Exercise (test code = 4114944632) Overall BP Response To Exercise (test code = 3723655262) Reason for Termination (test code = 3194364429) Stress Test Waveform interpreted in Impression (test code report associated with = 7617114599) image study. No interpretation is provided as part of this Stress ECG report.-Electronically Signed By Caron Medina MD ([id number]), associate entertainment editor Daysi Chapman ([id number]) on 08/02/2021 5:06:37 PM [facility], (w Contrast, Strain and 3D if needed)2021-08-01 17:44:46 Test Item Value Reference Range Interpretation Comments AoV Area, Vmax (test 2.41 cm2 code = 0559837593) AoV Area, VTI (test 2.36 cm2 code = 6587552666) AoV Mean PG (test 5.59 mmHg code = 5457183383) AoV Peak PG (test 11.08 mmHg code = 2855810423) AoV Vmax (test code 1.77 m/s = 9845354871) AoV VTI (test code = 0.30 m 6495152123) IVS,d (test code = 1.11 cm 9745795503) LV,d (test code = 5.57 cm 9548969858) LV EF,A2C (test code 44.91 % = 2669272744) LV EF,A4C (test code 42.43 % = 2775954672) LV EF,BP (test code 42.76 % = 1717307922) Santana Means,d A2C (test 7.79 cm code = 0197378846) Santana Means,d A4C (test 7.59 cm code = 4330860991) Santana Means,s A2C (test 7.10 cm code = 1287731491) Santana Means,s A4C (test 6.58 cm code = 4188105896) LV,s (test code = 4.42 cm 9173822801) LV SV,A2C (test code 59.18 % = 5954892451) LV SV,A4C (test code 64.42 % = 3644275782) LV Vol,d A2C (test 131.77 mL code = 2944104834) LV Vol,d A4C (test 151.81 ml code = 5442540900) LV Vol,d BP (test 142.79 ml code = 2943527100) LV Vol,s A2C (test 72.60 mL code = 3284592701) LV Vol,s A4C (test 87.39 ml code = 5512730649) LV Vol,s BP (test 81.72 nl code = 4990142431) LVOT Diam,S (test 2.08 cm code = 2054880861) LVOT Vmax (test code 1.16 m/s = 8485894733) LVOT VTI (test code 0.21 m = 2139562030) LVPWD,d (test code = 1.05 cm 9545740091) TR Vpeak (test code 2.66 mm/s = 7125388234) AR Press Half Time 504.65 ms (test code = 8332279632) TR pk grad (test 27.27 mmHg code = 9327964790) MR Vmax (test code = 6.10 m/s 1555448496) MR peak grad (test 121.70 mmHg code = 6613302704) E wave decelartion 149.68 msec time (test code = 0618827511) MV Peak E Des (test 1.46 m/s code = 3539607761) LVOT stroke volume 0.71 cm3 (test code = 5338031829) AV LVOT peak 5.36 mmHg gradient (test code = 9361678017) LV SYS VOL (test 88.60 ml code = 3157934935) LV THOMPSON VOL (test 151.60 ml code = 1910782877) LA area s A4C (test 35.87 cm2 code = 4835870780) LV SV Teich 2D (test 63.00 ml code = 3201021843) LVOT SI (test code = 38.28 ml/m2 5624808001) AoV Cusp sep (test 1.72 code = 5611203156) AoV Vmn (test code = 1.10 4715551235) IVS s 2D (test code 1.72 = 1326521559) AR slope (test code 2.59 = 0832869538) Ar Vmax (test code = 3.99 6777048409) LA Ao Ratio Mmode 2.07 (test code = 6644774676) LVOT Vmn (test code 0.80 = 5059458444) Pt Size (test code = 162.56 2010980916) Pt Wt (test code = 81.19 6735594880) PV AT (test code = 94.20 msec 2760918642) LVOT mean grad (test 2.88 mmHg code = 0788097130) AR DT (test code = 1541.52 msec 4760717747) AR pk grad (test 58.41 mmHg code = 5969689920) LVPW s PLAX (test 1.41 cm code = 3427654212) MV Decel slope (test 9.79 m/s2 code = 5416018162) LA Vol MOD A4C (test 124.31 ml code = 1080356882) Velocity Ratio 0.66 m/s (V1/V2) (test code = 4689) EF (test code = 41.56 % 1442406584) LVOT area (test code 3.40 cm2 = 8156767996) LVOT VTI (CM) (test 21.00 cm code = 2009695217) RA pressure (test 15.00 mmHg code = 1605579963) LA Vol 4C (test code 124.00 ml = 7716923348) RVSP (test code = 43.38 mmHg 1920177675) LA diam s (test code 5.50 cm = 1243764884) Aortic Root (test 2.63 cm code = 3150234872) NV End Thompson Grad 11.73 (test code = 1053054828) NV End Diat Des 1.71 (test code = 3598652799) AR maxPG (test code 63.74 = 9936709400) D E excurs (test 2.00 code = 5380113273) E f slope (test code 0.08 = 3504356084) E prime lat (test 0.06 code = 8597261368) E keaton sept (test 0.09 code = 0011059209) PV acc T slope (test 6.80 code = 7713739269) CONDE BP EF (test 43.00 % code = 2848375404) LA VOL 2C (test code 138.00 ml = 9828721226) VALERIANO (test code = The left ventricle [...] of aortic valve stenosis.PericardiumNo pericardial effusion seen. [facility] RNA [Presence] in Respiratory specimen by LANG with probe [id number] 23:11:03 Test Item Value Reference Range Interpretation Comments SARS-CoV-2 (COVID-19) RNA Not detected [Presence] in Respiratory specimen by LANG with probe detection (test code = 69467-2) Whether patient is employed in a Unknown healthcare setting (test code = 36506-6) Whether the patient has symptoms Unknown related to condition of interest (test code = 02962-4) Whether the patient was Unknown hospitalized for condition of interest (test code = 72323-3) Whether the patient was admitted Unknown to intensive care unit (ICU) for condition of interest (test code = 45455-7) Whether patient resides in a Unknown congregate care setting (test code = 35116-8) status (test code = Unknown 19155-7) Date and time of symptom onset Unknown (test code = 01605-7) [facility] (C[facility]) RNA [Presence] in Respiratory specimen by LANG with probe [id number] 11:45:59 Test Item Value Reference Range Interpretation Comments SARS-CoV-2 (COVID-19) RNA Not detected Not-Detected [Presence] in Respiratory specimen by LANG with probe detection (test code = 36797-9) Whether patient is employed in a healthcare setting (test code = 29699-4) Whether the patient has symptoms related to condition of interest (test code = 86181-8) Patient was hospitalized because of this condition (test code = 33065-6) Whether the patient was admitted to intensive care unit (ICU) for condition of interest (test code = 28431-1) Whether patient resides in a congregate care setting (test code = 11693-6) [facility] (COVID-19) RNA [Presence] in Respiratory specimen by LANG with probe [id number] 05:28:15 Test Item Value Reference Range Interpretation Comments SARS-CoV-2 (COVID-19) RNA Not detected Not-Detected [Presence] in Respiratory specimen by LANG with probe detection (test code = 76364-7) [facility] (COVID-19) RNA [Presence] in Respiratory specimen by LANG with probe [id number] 23:52:31 Test Item Value Reference Range Interpretation Comments SARS-CoV-2 (COVID-19) RNA Not detected Not-Detected [Presence] in Respiratory specimen by LANG with probe detection (test code = 28059-0) [facility] Notes Date/Time Note Provider Source 2022-01-09 12:30:04-00:00 NATACHA SCHULZ [facility] CONSULTATION LATRICIA LUBIN FACILITY: [facility] Billing #: [id number] Room: [address] [place] [address] MR #: [id number] : 1950 DATE OF ADMISSION: 01/07/2022 DATE OF CONSULTATION: 01/09/2022 REQUESTING PHYSICIAN: HOUSEKEEPING AID: Natacha Schulz MD SUBJECTIVE: Ms. Latricia Lubin [...] this done for her al ambrosio. ITM/MODL /[id number]
[2022-12-23 17:43] LABS: Absolute Lymphocytes (CBC) 1.2 K/uL (0.7-4.9); Hematocrit 33.4 % (36.0-45.0); Lymphocytes % 19.5 % (15.3-44.8); MCV 85.8 fL (80-100); MPV 7.6 fL (7.6-11.3); Platelets 390 thou/uL (152-406); RBC Red Blood Cell Count 3.89 M/uL (3.86-4.86)
--- NOTE | 2022-12-23 17:43 | RAD REPORT ---
EXAM DESCRIPTION: Bernabe Single View12/23/2022 5:34 pm CLINICAL HISTORY: Chest pain COMPARISON: November 22, 2022 FINDINGS: The lungs appear clear of acute infiltrate. The heart is moderately enlarged. Pacemaker l nate in place IMPRESSION: No acute abnormalities displayed
[2022-12-23 17:46] LABS: Protime INR 1.94
[2022-12-23 18:01] LABS: AST/SGOT 10 U/L (15-37); Albumin 2.4 g/dL (3.4-5.0); Alkaline Phosphatase 115 U/L (45-117); BUN Blood Urea Nitrogen 35 mg/dL (7-18); Bicarbonate 24 mEq/L (21-32); Bilirubin Total 0.6 mg/dL (0.2-1.0); Glomerular Filtration Rate 12 ml/min (=/>90); Glucose Level 151 mg/dL (74-106); Potassium 3.9 mEq/L (3.5-5.1); Protein, Total 6.8 g/dL (6.4-8.2); Sodium Level 136 mEq/L (136-145)
[2022-12-23 18:10] LABS: ALT/SGPT < 10 U/L (13-56)
--- NOTE | 2022-12-23 20:34 | ER ---
Nurse's Notes [facility] Name: Latricia Cadet Age: 72 yrs Sex: Female : 1950 Arrival Date: 12/23/2022 Time: 16:46 Bed 4 Private MD: Diagnosis: Chest pain, unspecified;End stage renal disease Presentation: 12/23 16:48 Chief complaint: EMS states: [facility] CALLED FOR CHEST PAIN, DECREASED LOC ON SCENE. bp Coronavirus screen: At this time, the client does not indicate any symptoms associated with coronavirus-19. Ebola Screen: No symptoms or risks identified at this time. Initial Sepsis Screen: Does the patient meet any 2 criteria? No. Patient's initial sepsis screen is negative. Does the patient have a suspected source of infection? No. Patient's initial sepsis screen is negative. Risk Assessment: Do you want to hurt yourself or someone else? Patient reports no desire to harm self or others. Onset of symptoms is unknown. Care prior to arrival: IV initiated. 15 GA LEFT TIB IO Glucose check: 188. 16:48 Method Of Arrival: EMS: [facility] bp 16:48 Acuity: JAKE 3 bp Triage Assessment: 16:50 General: Appears in no apparent distress. Behavior is calm, cooperative. Pain: Unable bp to use pain scale. Does not appear to understand pain scale. EENT: No deficits noted. Neuro: AT BASELINE. Cardiovascular: Rhythm is Respiratory: No deficits noted. GI: No signs and/or symptoms were reported involving the gastrointestinal system. : No signs and/or symptoms were reported regarding the genitourinary system. Derm: No deficits noted. Musculoskeletal: No deficits noted. Historical: - Allergies: 16:50 No Known Allergies; bp - Home Meds: 16:50 apixaban 2.5 mg Oral tab 1 tab 2 times per day [Active]; budesonide 3 mg Oral CECX 3 bp caps once daily [Active]; bumetanide 1 mg Oral tab 1 tab once daily [Active]; calcitriol 0.25 mcg Oral cap 1 cap once daily [Active]; carvedilol 25 mg Oral tab 1 tab 2 times per day [Active]; clonidine HCl 0.1 mg Oral Tb12 1 tab nightly [Active]; digoxin 125 mcg (0.125 mg) Oral tab 1 tab Every other day [Active]; doxazosin 4 mg Oral tab 1 tab daily [Active]; Lexapro 10 mg Oral tablet daily [Active]; furosemide 80 mg Oral tab 1 tab daily [Active]; Eliquis oral [Active]; hydralazine 100 mg Oral tab 1 tab 2 times per day [Active]; Lantus U-100 Insulin 100 unit/mL Sub-Q crtg 15 unit every morning [Active]; metoprolol tartrate 100 mg Oral tab 1 tab 2 times per day [Active]; isosorbide mononitrate 60 mg Oral Tablet, Extended Release 24 hr daily [Active]; pramipexole 0.25 mg Oral tablet every evening [Active]; escitalopram oxalate 10 mg Oral tab 1 tab once daily [Active]; pantoprazole 40 mg Oral granules delayed release for susp packet daily [Active]; Renvela 800 mg Oral tablet 2 tabs with meals [Active]; sevelamer HCl 800 mg Oral tab 2 tabs 3 times per day [Active]; sucroferric oxyhydroxide 500 mg Oral chew 1 tab 3 times per day [Active]; Tresiba U-100 Insulin 100 unit/mL subcutaneous soln 100 unit nightly [Active]; trazodone 100 mg Oral tab 1 tab nightly [Active]; Ozempic 0.25 mg or 0.5 mg(2 mg/1.5 mL) subcutaneous pnij 0.5 mg once wkly [Active]; pantoprazole oral [Active]; midodrine oral [Active]; gabapentin oral [Active]; - PMHx: 16:50 dialysis T, TH, Sat.; Sleep Apnea; Rheumatoid Arthritis; insomnia; angina pectoris; bp COPD; Diabetes - NIDDM; CHF; Hypertension; heart attack; kidney disease; - PSHx: 16:50 HD Fistula - Right arm; hysterectomy; pacemaker; bp - Immunization history:: Adult Immunizations up to date. - Social history:: Smoking status: Patient denies any tobacco usage or history of. Screenin:58 [facility] ED Fall Risk Assessment (Adult) History of falling in the last 3 months, bp including since admission No falls in past 3 months (0 pts). Abuse screen: Denies threats or abuse. Denies injuries from another. Nutritional screening: No deficits noted. Tuberculosis screening: No symptoms or risk factors identified. Assessment: 16:58 General: SEE TRIAGE NOTE. bp 17:00 Reassessment: : [place] Cadet [phone]. ko1 19:10 Reassessment: Pt is resting in bed with eyes closed, respirations are even and jb4 unlabored with no s/s of pain or distress noted. 20:18 Reassessment: Patient appears in no apparent distress at this time. Patient and/or jb4 family updated on plan of care and expected duration. Pain level reassessed. Patient is alert, oriented x 3, equal unlabored respirations, skin warm/dry/pink. attempted to straight cath pt x2. unsuccessful on both attempts. Vital Signs: 16:48 BP 136 / 79; Pulse 82; Resp 17; Temp 99.2; Pulse Ox 100% ; bp 18:02 BP 154 / 67; Pulse 80; Resp 13; Pulse Ox 100% ; ko1 18:20 BP 153 / 75; Pulse 80; Resp 14; Pulse Ox 99% ; ko1 19:10 BP 160 / 71; Pulse 80; Resp 19; Pulse Ox 100% on R/A; jb4 20:00 BP 159 / 76; Pulse 80; Resp 18; Pulse Ox 100% on R/A; jb4 21:00 BP 148 / 74; Pulse 80; Resp 18; Pulse Ox 100% on R/A; jb4 21:30 BP 151 / 73; Pulse 80; Resp 18; Temp 98; Pulse Ox 100% on R/A; jb4 [place] Coma Score: 21:55 Eye Response: spontaneous(4). Motor Response: obeys commands(6). Verbal Response: rv oriented(5). Total: 15. ED Course: 16:48 Patient arrived in ED. bp 16:48 Philipp Linn, RN is Primary Nurse. bp 16:50 Triage completed. bp 16:56 Arm band placed on. bp 16:58 Patient has correct armband on for positive identification. Bed in low position. Call bp light in reach. Side rails up X2. 16:59 Joanna Liang PA-C is PHCP. sb4 16:59 Rico Romo MD is Attending Physician. sb4 16:59 Maintain EMS IV. Dressing intact. Good blood return noted. Site clean \T\ dry. Gauge \T\ bp site: 15 GA LEFT TIB IO. 17:36 Chest Single View XRAY In Process Unspecified. EDMS 17:39 Troponin High Sensitivity Sent. ko1 17:39 Blood Culture Adult (2) Sent. ko1 17:39 CBC with Diff Sent. ko1 17:39 CMP Sent. ko1 17:39 Lactate w/ 2H reflex if indic. Sent. ko1 17:39 Protime (+inr) Sent. ko1 17:39 Ptt, Activated Sent. ko1 18:02 Provided Education on: NA. Client placed on continuous cardiac and pulse oximetry ko1 monitoring. NIBP monitoring applied. phototypesetting equipment monitor on. Door closed. Noise minimized. Warm blanket given. 20:30 Inserted saline lock: 20 gauge in left hand, using aseptic technique. rv 20:33 Andi Lang MD is Hospitalizing Provider. la1 21:55 No provider procedures requiring assistance completed. Patient admitted, IV remains in rv place. Administered Medications: No medications were administered Medication: 16:58 VIS not applicable for this client. bp Outcome: 20:33 Decision to Hospitalize by Provider. la1 21:55 Admitted to Med/surg accompanied by tech, via stretcher, room 208, with chart, Report rv called to THELMA PETE 21:55 Condition: stable 21:55 Instructed on the need for admit. 21:58 Patient left the ED. rv Signatures: Dispatcher [employer] EDMS Rick Hogue, BODY REPAIRER-C BODY REPAIRER-Cla1 Addison Bearden, RN RN jb4 Philipp Linn RN RN Jose Rafael Heard RN RN rv Aline Ibarra RN RN ko1 Joanna Liang, PA-C PA-Jan sb4 Corrections: (The following items were deleted from the chart) 16:58 16:48 BP 136 / 79; Pulse 82bpm; Resp 17bpm; Pulse Ox 10%; bp bp
--- NOTE | 2022-12-23 20:34 | EDPHYS ---
Physician Documentation [facility] Name: Latricia Cadet Age: 72 yrs Sex: Female : 1950 Arrival Date: 12/23/2022 Time: 16:46 Bed 4 Private MD: ED Physician Rico Romo HPI: 12/23 17:12 This 72 yrs old Female presents to ER via EMS with complaints of Altered sb4 Mental Status. 17:15 72-year-old female [place] [facility] patient with history of ESRD, chronic PE, dementia, sb4 pacemaker presents via EMS with decreased responsiveness/altered mental status. Per EMS, they were called out for an unresponsive patient/possible cardiac arrest. Patient was not in cardiac arrest but was difficult to arouse initially, only responsive to painful stimuli. IO was placed on scene which woke patient up a bit more. Upon arrival, she is alert to verbal stimuli and states she was experiencing some chest pain but has no complaints at this time. called and states that patient has been declining ever since their son of cancer. Historical: - Allergies: 16:50 No Known Allergies; bp - Home Meds: 16:50 apixaban 2.5 mg Oral tab 1 tab 2 times per day [Active]; budesonide 3 mg Oral CECX 3 bp caps once daily [Active]; bumetanide 1 mg Oral tab 1 tab once daily [Active]; calcitriol 0.25 mcg Oral cap 1 cap once daily [Active]; carvedilol 25 mg Oral tab 1 tab 2 times per day [Active]; clonidine HCl 0.1 mg Oral Tb12 1 tab nightly [Active]; digoxin 125 mcg (0.125 mg) Oral tab 1 tab Every other day [Active]; doxazosin 4 mg Oral tab 1 tab daily [Active]; Lexapro 10 mg Oral tablet daily [Active]; furosemide 80 mg Oral tab 1 tab daily [Active]; Eliquis oral [Active]; hydralazine 100 mg Oral tab 1 tab 2 times per day [Active]; Lantus U-100 Insulin 100 unit/mL Sub-Q crtg 15 unit every morning [Active]; metoprolol tartrate 100 mg Oral tab 1 tab 2 times per day [Active]; isosorbide mononitrate 60 mg Oral Tablet, Extended Release 24 hr daily [Active]; pramipexole 0.25 mg Oral tablet every evening [Active]; escitalopram oxalate 10 mg Oral tab 1 tab once daily [Active]; pantoprazole 40 mg Oral granules delayed release for susp packet daily [Active]; Renvela 800 mg Oral tablet 2 tabs with meals [Active]; sevelamer HCl 800 mg Oral tab 2 tabs 3 times per day [Active]; sucroferric oxyhydroxide 500 mg Oral chew 1 tab 3 times per day [Active]; Tresiba U-100 Insulin 100 unit/mL subcutaneous soln 100 unit nightly [Active]; trazodone 100 mg Oral tab 1 tab nightly [Active]; Ozempic 0.25 mg or 0.5 mg(2 mg/1.5 mL) subcutaneous pnij 0.5 mg once wkly [Active]; pantoprazole oral [Active]; midodrine oral [Active]; gabapentin oral [Active]; - PMHx: 16:50 dialysis T, TH, Sat.; Sleep Apnea; Rheumatoid Arthritis; insomnia; angina pectoris; bp COPD; Diabetes - NIDDM; CHF; Hypertension; heart attack; kidney disease; - PSHx: 16:50 HD Fistula - Right arm; hysterectomy; pacemaker; bp - Immunization history:: Adult Immunizations up to date. - Social history:: Smoking status: Patient denies any tobacco usage or history of. ROS: 17:19 Constitutional: Negative for fever, chills, and weight loss, Eyes: Negative for injury, sb4 pain, redness, and discharge, ENT: Negative for injury, pain, and discharge, Respiratory: Negative for shortness of breath, cough, wheezing, and pleuritic chest pain, Abdomen/GI: Negative for abdominal pain, nausea, vomiting, diarrhea, and constipation, MS/Extremity: Negative for injury and deformity, Skin: Negative for injury, rash, and discoloration. 17:19 Cardiovascular: Positive for chest pain, Negative for edema, orthopnea, palpitations. 17:19 Neuro: Negative for altered mental status, dizziness, gait disturbance, loss of consciousness, syncope. 17:19 All other systems are negative. Exam: 17:20 Skin: Warm, dry with normal turgor. Normal color with no rashes, no lesions, and no sb4 evidence of cellulitis. 17:20 Constitutional: The patient appears awake, non-toxic, lethargic, pale. 17:20 Head/face: Exam is negative for deformity, ecchymosis, erythema, Noted is 17:20 Eyes: Exam is negative for acute changes, drainage, edema. 17:20 ENT: Exam is negative for acute changes, injury of acute deformity, dysphagia, abnormal voice. 17:20 Neck: Exam negative for acute changes, obvious evidence of injury or deformity, lymphadenopathy, masses, swelling. 17:20 Cardiovascular: Exam negative for acute changes, bradycardia, JVD, tachycardia. 17:20 Respiratory: the patient does not display signs of respiratory distress, Respirations: normal, symetrical, no shallow respirations, Breath sounds: are clear throughout. 17:20 Abdomen/GI: Exam negative for acute changes, discomfort, distension. 17:20 Musculoskeletal/extremity: IO left tibia. Vital Signs: 16:48 BP 136 / 79; Pulse 82; Resp 17; Temp 99.2; Pulse Ox 100% ; bp 18:02 BP 154 / 67; Pulse 80; Resp 13; Pulse Ox 100% ; ko1 18:20 BP 153 / 75; Pulse 80; Resp 14; Pulse Ox 99% ; ko1 19:10 BP 160 / 71; Pulse 80; Resp 19; Pulse Ox 100% on R/A; jb4 20:00 BP 159 / 76; Pulse 80; Resp 18; Pulse Ox 100% on R/A; jb4 21:00 BP 148 / 74; Pulse 80; Resp 18; Pulse Ox 100% on R/A; jb4 21:30 BP 151 / 73; Pulse 80; Resp 18; Temp 98; Pulse Ox 100% on R/A; jb4 [place] Coma Score: 21:55 Eye Response: spontaneous(4). Motor Response: obeys commands(6). Verbal Response: rv oriented(5). Total: 15. MDM: 16:59 Patient medically screened. sb4 20:15 Data reviewed: vital signs, nurses notes, lab test result(s), EKG, radiologic studies, sb4 I have discussed the patient's presentation/case with the attending Emergency Department Physician; and as a result, I will admit patient. 12/23 17:01 Order name: Blood Culture Adult (2) sb4 12/23 17:01 Order name: CBC with Diff; Complete Time: 17:47 sb4 12/23 17:01 Order name: CMP; Complete Time: 18:15 sb4 12/23 17:01 Order name: Lactate w/ 2H reflex if indic.; Complete Time: 18:01 sb4 12/23 17:01 Order name: Protime (+inr); Complete Time: 17:51 sb4 12/23 17:01 Order name: Ptt, Activated; Complete Time: 17:51 sb4 12/23 17:01 Order name: Troponin High Sensitivity; Complete Time: 18:15 sb4 12/23 17:01 Order name: UAM sb4 12/23 17:01 Order name: Chest Single View XRAY; Complete Time: 17:47 sb4 12/23 17:01 Order name: EKG; Complete Time: 17:02 sb4 12/23 17:01 Order name: Accucheck; Complete Time: 17:49 sb4 12/23 17:01 Order name: Cardiac monitoring; Complete Time: 17:39 sb4 12/23 17:01 Order name: EKG - Nurse/Tech; Complete Time: 17:49 sb4 12/23 17:01 Order name: IV Saline Lock - Large Bore; Complete Time: 17:49 sb4 12/23 17:01 Order name: Labs collected and sent; Complete Time: 17:39 sb4 12/23 17:01 Order name: O2 Per Protocol; Complete Time: 17:39 sb4 12/23 17:01 Order name: O2 Sat Monitoring; Complete Time: 17:39 sb4 12/23 17:01 Order name: Vital Signs; Complete Time: 17:02 sb4 EC:51 Rate is 90 beats/min. Rhythm is irregularly irregular, A fib with Right bundle branch sb4 block. QRS interval is normal at 140 msec. QT interval is normal at [address] changes noted. Clinical impression: Abnormal EKG without significant change. Interpreted by me. Reviewed by me. Administered Medications: No medications were administered Disposition Summary: 12/23/22 20:33 Hospitalization Ordered Hospitalization Status: Observation la1 Provider: Andi Lang Location: Telemetry/MedSurg (observation) la1 Condition: Stable la1 Problem: new la1 Symptoms: have improved la1 Bed/Room Type: Standard [facility] Room Assignment: 208(12/23/22 20:46) cg Diagnosis - Chest pain, unspecified la1 - End stage renal disease la1 Forms: - Medication Reconciliation Form la1 - SBAR form la1 Signatures: Dispatcher [employer] EDRick Ovalles, INSTANT PRINT OPERATOR-C INSTANT PRINT OPERATOR-Randi iWse, RN RN cg Philipp Linn, RN RN Joanna Vergara PA-C PAValdemar sb4 Corrections: (The following items were deleted from the chart) 17:20 17:19 Constitutional: Positive for sb4 sb4 20:46 20:33 la1 cg 21:55 17:01 [place] ordered. sb4 rv
--- NOTE | 2022-12-23 20:53 | P.HP ---
Certification for Inpatient Patient admitted to: Observation With expected LOS: <2 Midnights Patient will require the following post-hospital care: None Practitioner: I am a practitioner with admitting privileges, knowledge of patient current condition, hospital course, and medical plan of care. Services: Services provided to patient in accordance with Admission requirements found in Title 42 Section 412.3 of the Code of Federal Regulations Patient History Date of Service: 12/23/22 Reason for admission: Chest pain History of Present Illness: 72-year-old female with history of ESRD on HD, diabetes type 2, CAD, COPD, hypertension, RA presents Emergency Department with chief complaint of chest pain, lethargy. She states that the local half-way she is found to have decreased mental status and was complaining of chest pain, but this reason she was brought to the emergency department. She was evaluated in the ER and labs were significant for creatinine 3.7 GFR 12 BUN 35 glucose 151 initial high- sensitivity troponin 65.0 chest x-ray negative for acute findings EKG without STEMI criteria. ED provider wishes to admit under observation for ACS rule out. Allergies No Known Allergies Allergy (Verified 01/02/22 02:33) Home Medications: Sevelamer Carbonate [Renvela*] 2 tab PO TIDWM 01/02/22 Apixaban [Eliquis *] 2.5 mg PO BID #30 tab 05/08/22 Gabapentin 100 mg PO BID 07/19/22 Midodrine HCl 5 mg PO BID 07/19/22 Apixaban [Eliquis *] 2.5 mg PO BID #60 tab 11/18/22 Nepro Shake [Nepro*] 237 ml PO TID #90 can 11/18/22 - Past Medical/Surgical History Diabetic: Yes -: Diabetes mellitus type 2-insulin dependent -: Rheumatoid arthritis -: Hypertension -: Hyperlipidemia -: Chronic congestive heart failure-unknown EF -: ESRD on HD -: CAD -: History of DVT/PE -: L ankle fusion -: hysterectomy -: Dialysis catheter placement and removal -: Cholecystectomy -: pacemaker/defibrillator Psychosocial/ Personal History: Patient lives with her - Social History Alcohol use: No CD- Drugs: No Caffeine use: Yes Place of Residence: Home Review of Systems 10-point ROS is otherwise unremarkable Cardiovascular: Chest Pain Physical Examination - Physical Exam General: Alert, In no apparent distress, Oriented x3 HEENT: Atraumatic, PERRLA, Mucous membr. moist/pink, EOMI, Sclerae nonicteric Neck: Supple, 2+ carotid pulse no bruit, No LAD, Without JVD or thyroid abnormality Respiratory: Clear to auscultation bilaterally, Normal air movement Cardiovascular: Regular rate/rhythm, Normal S1 S2 Capillary refill: <2 Seconds Gastrointestinal: Normal bowel sounds, No tenderness Musculoskeletal: No tenderness Integumentary: No rashes Neurological: Normal gait, Normal speech, Normal strength at 5/5 x4 extr, Normal tone, Normal affect Lymphatics: No axilla or inguinal lymphadenopathy - Studies Laboratory Data (last 24 hrs) 12/23/22 12/23/22 12/23/22 17:28 17:28 17:28 WBC 6.00 Hgb 10.8 L Hct 33.4 L Plt Count 390 PT 21.3 H INR 1.94 APTT 29.3 Sodium 136 Potassium 3.9 BUN 35 H Creatinine 3.78 H Glucose 151 H Total Bilirubin 0.6 AST 10 L ALT < 10 L Alkaline Phosphatase 115 Assessment and Plan - Plan Assessment: Chest pain rule out ACShistory of CAD ESRD on HD Diabetes mellitus type 2insulin-dependent Hypertension Rheumatoid arthritis Hyperlipidemia COPD History of DVT/PE Plan: Chest pain rule out ACShistory of CAD Trend troponins, monitor on telemetry, cardiology consult. Given aspirin. ESRD on HD Nephrology consult, has been compliant thus far. Diabetes mellitus type 2insulin-dependent ACHS Accu-Chek, sliding scale insulin. Hypertension Rheumatoid arthritis Hyperlipidemia Obtain and continue home medications. COPD As needed nebulizer treatments History of DVT/PE Continue Eliquis, no tachycardia or hypoxia. DVT PPX: Continue Eliquis Code status: Full code Discharge Plan: Home Plan to discharge in: 24 Hours - Advance Directives Does patient have a Living Will: No Does patient have a Durable POA for Healthcare: No - Code Status/Comfort Care Code Status Assessed: Yes (Full code) Critical Care: No Time Spent Managing Pts Care (In Minutes): 55
[2022-12-23] MEDS ORDERED: ACETAMINOPHEN 500 MG TAB PO PRN (22:14)
[2022-12-23] MEDS ORDERED: ONDANSETRON 4 MG/2 ML VIAL IV PRN (22:14)
[2022-12-23] MEDS: INSULIN -REGULAR HUMAN 50 UNIT/0.5 ML ML SQ SCH (22:14)
[2022-12-24] MEDS: GABAPENTIN 100 MG CAP PO SCH ×3 (00:02→20:28)
[2022-12-24] MEDS: APIXABAN 2.5 MG TABLET PO SCH ×3 (00:02→20:28)
[2022-12-24 01:03] VITALS: BMI 25.9
[2022-12-24 02:16] LABS: Specific Gravity 1.015 (1.005-1.030); Urine Bacteria None Seen /HPF (<20); Urine Bilirubin NEGATIVE (Negative); Urine Blood 2+ (Negative); Urine Clarity Extremely Turbid (Clear); Urine Color Orange (Yellow); Urine Crystals Unidentified Few /HPF (None Seen); Urine Glucose NEGATIVE (Negative); Urine Protein 3+ (Negative); Urine RBC >50 /HPF (None Seen); Urine Urobilinogen Normal (Normal); Urine WBC Clump Many /HPF (None Seen)
[2022-12-24 06:29] LABS: Absolute Lymphocytes (CBC) 1.3 K/uL (0.7-4.9); Hematocrit 33.3 % (36.0-45.0); Lymphocytes % 17.8 % (15.3-44.8); MCV 85.7 fL (80-100); MPV 7.1 fL (7.6-11.3); Platelets 373 thou/uL (152-406); RBC Red Blood Cell Count 3.88 M/uL (3.86-4.86)
[2022-12-24 06:59] LABS: Potassium 3.9 mEq/L (3.5-5.1); Thyroid Stimulating Hormone 1.11 uIU/mL (0.358-3.740); Troponin High Sensitivity 58.3 pg/mL (<58.9)
[2022-12-24] MEDS: INSULIN -REGULAR HUMAN 50 UNIT/0.5 ML ML SQ SCH ×4 (07:30→20:28)
--- NOTE | 2022-12-24 10:27 | P.CNS ---
Date of Consult: 12/24/22 Reason for Consult: ESRD, missed dialysis Requesting Physician: Rick Hogue Chief Complaint: Chest pain History of Present Illness: Pt is a 72-year-old Caucacian female with past medical history of ESRD on HD TTS at [facility] (formerly [facility]) with last HD on 12/20, she missed treatment on , a hx of possible chronic DVT on eliquis, reported CAD, HTN who has had recent admissions here in the setting of heat exertion, confusion, UTI and other. Pt again referred to ER yesterday in the setting of various complaints. It appears pt was admitted for CPT rule out due to mild troponin leak. Pt denies any current CP or dyspnea or abd pain or N/V/D. Pt had abnormal UA but denies urinary frequency, urgency or dysuria.. Allergies No Known Allergies Allergy (Verified 01/02/22 02:33) Home Medications: Sevelamer Carbonate [Renvela*] 2 tab PO TIDWM 01/02/22 Gabapentin 100 mg PO BID 07/19/22 Midodrine HCl 5 mg PO BID 07/19/22 Apixaban [Eliquis *] 2.5 mg PO BID #60 tab 11/18/22 Nepro Shake [Nepro*] 237 ml PO TID #90 can 11/18/22 Docusate [Colace Cap*] 100 mg PO BID 12/24/22 Escitalopram [Lexapro*] 1 tab PO BEDTIME 12/24/22 Insulin Lispro [Humalog] See Protocol SQ ACHS 12/24/22 Isosorbide Mononitrate [Isosorbide Mononitrate ER] 1 tab PO DAILY 12/24/22 Linezolid [Zyvox*] 1 tab PO BID 12/24/22 clonazePAM [Clonazepam] 1 tab PO BEDTIME 12/24/22 levoFLOXacin [Levaquin*] 1 tab PO DAILY 12/24/22 - Past Medical/Surgical History Diabetic: Yes -: Diabetes mellitus type 2-insulin dependent -: Rheumatoid arthritis -: Hypertension -: Hyperlipidemia -: Chronic congestive heart failure-unknown EF -: ESRD on HD -: CAD -: History of DVT/PE -: L ankle fusion -: hysterectomy -: Dialysis catheter placement and removal -: Cholecystectomy -: pacemaker/defibrillator Psychosocial/ Personal History: Patient lives with her - Social History Smoking Status: Unknown if ever smoked Alcohol use: No CD- Drugs: No Caffeine use: Yes Place of Residence: Home Review of Systems General: Weakness Cardiovascular: As per HPI Genitourinary: As per HPI Neurological: Weakness, Other (Reports largely bed bound and does not ambulate much) Physical Examination Temp Pulse Resp BP Pulse Ox 97.1 F 79 14 139/65 100 12/24/22 08:00 12/24/22 08:00 12/24/22 08:00 12/24/22 08:00 12/24/22 08:00 General: In no apparent distress, Cooperative HEENT: Atraumatic, Normocephalic Neck: Supple Respiratory: Clear to auscultation bilaterally, Normal air movement Cardiovascular: No edema, Regular rate/rhythm, Normal S1 S2 Gastrointestinal: Soft and benign, Non-distended, No tenderness Musculoskeletal: No swelling, No tenderness, Other (Rt UE AVF with thrill and bruit) Integumentary: No rashes Neurological: Normal speech, Normal tone, Other (Flat affect) Laboratory Data (last 24 hrs) 12/23/22 12/23/22 12/23/22 17:28 17:28 17:28 WBC 6.00 Hgb 10.8 L Hct 33.4 L Plt Count 390 PT 21.3 H INR 1.94 APTT 29.3 Sodium 136 Potassium 3.9 BUN 35 H Creatinine 3.78 H Glucose 151 H Total Bilirubin 0.6 AST 10 L ALT < 10 L Alkaline Phosphatase 115 Conclusions/Impression: A/P) 1. ESRD 2nd to presumed HTN/DM on HD for several years per reports, dialyzed last on , overall metab profile and volume status acceptable despite missed HD but will plan for HD today for metab clearance and UF. Pt consents to dialysis. 2. Chest pain unspecified -no current complaints, mild troponin leak in the setting of her ESRD and other. Will defer to primary team to further assess and manage 3. HTN with reports of hypotension, intra dialytic or other -has been on midodrine in the past, not currently ordered, will assess for its need 4. Abnormal findings in urine, pyuria, asymptomatic. Specimen was not clean catch, epithelial cells present. Treated for yeast UTI last mo in November. F/u UCx 5. MDD per history and pt acknowledges depression on this admission and in the past, recommend SW reviewing PHQ-9 with pt and will defer to primary team to adjust her medications/other. Ti Glover MD, FASN
--- NOTE | 2022-12-24 10:39 | P.PN ---
Subjective Date of Service: 12/24/22 Chief Complaint: Chest pain Subjective: Improving (Patient is improving denies any chest pain history of significant coronary artery disease with 3 MIs in the past including a pacemaker no stents placed pain started yesterday lasted for about 30 minutes no EKG available mildly elevated troponin history of chronic renal failure denies any fever or ch) Review of Systems 10-point ROS is otherwise unremarkable General: Weakness Physical Examination - Vital Signs Temperature: 97.1 F Blood Pressure: 139/65 Pulse: 79 Respirations: 14 Pulse Ox (%): 100 - Physical Exam General: Alert, Oriented x3 HEENT: Atraumatic Neck: Supple Cardiovascular: No edema, Regular rate/rhythm, Normal S1 S2 Gastrointestinal: Normal bowel sounds, Soft and benign, Non-distended - Studies Laboratory Data (last 24 hrs) 12/23/22 12/23/22 12/23/22 17:28 17:28 17:28 WBC 6.00 Hgb 10.8 L Hct 33.4 L Plt Count 390 PT 21.3 H INR 1.94 APTT 29.3 Sodium 136 Potassium 3.9 BUN 35 H Creatinine 3.78 H Glucose 151 H Total Bilirubin 0.6 AST 10 L ALT < 10 L Alkaline Phosphatase 115 Assessment And Plan - Current Problems (Diagnosis) (1) Chest pain Current Visit: Yes Status: Acute Plan: Patient is 72 years of age admitted with acute onset of chest pain mildly elevated troponins will need to order an EKG opponent's are now back to normal so has chronic renal failure patient's vital signs are all satisfactory currently denies any chest pain cough noticed patient was on Zyvox and levofloxacin stated on her home medication list (2) Cystitis Current Visit: Yes Status: Acute Plan: Patient's urinalysis is very abnormal probably has underlying cystitis
[2022-12-24] MEDS ORDERED: CEFTRIAXONE 1,000 MG in NA CHLORIDE 0.9% 50 ML IVPB SCH (11:00)
[2022-12-24] MEDS: SEVELAMER CARBONATE 800 MG TABLET PO SCH ×3 (12:00→17:00)
[2022-12-24] MEDS: NEPRO SHAKE 237 ML CAN PO SCH ×2 (14:00→20:28)
--- NOTE | 2022-12-24 15:30 | CON ---
Date of Consultation: 12/24/2022 Reason For Consultation: Chest pain with positive troponin. History Of Present Illness: A 72-year-old female with past medical history of end-stage renal diseas e, on hemodialysis, coronary artery disease, diabetes, COPD, hypertension, presented with chest pain, retrosternal, not related to exertion. No radiation. She is poor historian, but as per chart, she has been having chest pain for a few days. Evaluated in the emergency room. Troponin was borderline elevated, so she was admitted to rule out. At the present time, she does not have an active chest p ain. Past Medical History: End-stage renal disease, diabetes, hypertension, dyslipidemia, COPD, rheumatoi d arthritis. Medications: Refer reconciliation sheet for detailed list. Allergies: NO KNOWN DRUG ALLERGIES. Family History: No premature coronary artery disease or cancer. Social History: She does not smoke or drink. Does not use any drugs. Review of Systems: All systems reviewed and they were negative except as mentioned in the HPI. Physical Examination: Vital Signs: Reviewed. Head and Neck: Pupils are equal, reactive to light. Intact eye movements. No JVD. No adenopathy. Neck is supple. Thyroid is not enlarged. Lungs: Clear to auscultation bilaterally. No rhonchi, rales, or crackles. No accessory muscle use. Heart: Irregular. No extra sounds. Abdomen: Soft, nontender. Bowel sounds positive. No organomegaly. No masses or hernia. No rigidi ty or rebound. Extremities: No clubbing, cyanosis. Intact pulses. Skin: No rashes or nodules. Neurologic: Alert, awake. No acute focal deficits appreciated. LYMPH NODES: No cervical or axillary lymphadenopathy. Investigations: The troponin was borderline 65 and now it is 58, but her BUN is 36, creatinine 3.97. Assessment And Recommendation: 1.Chest pain with elevated troponin. Troponin is trending down. She has chest pain with positive t roponin and multiple risk factors. Recommend coronary angiogram on her on Monday. 2.Hypertension. Blood pressure is acceptable. Continue current management. 3.End-stage renal disease, on hemodialysis. Being evaluated and seen by Nephrology. /ERI Voice ID: [id number] Report ID: [id number]
[2022-12-24] MEDS: DOCUSATE NA 100 MG CAP PO SCH (20:28)
[2022-12-24] MEDS: clonazePAM 0.5 MG TAB PO SCH (20:28)
[2022-12-24] MEDS: ESCITALOPRAM 20 MG TAB PO SCH (20:28)
[2022-12-24] MEDS ORDERED: APIXABAN 2.5 MG TABLET PO SCH (21:00)
[2022-12-25 03:20] LABS: Absolute Lymphocytes (CBC) 1.4 K/uL (0.7-4.9); Hematocrit 35.1 % (36.0-45.0); Lymphocytes % 17.3 % (15.3-44.8); MCV 85.8 fL (80-100); MPV 7.7 fL (7.6-11.3); Platelets 358 thou/uL (152-406); RBC Red Blood Cell Count 4.09 M/uL (3.86-4.86)
[2022-12-25 03:28] LABS: Potassium 3.7 mEq/L (3.5-5.1)
[2022-12-25] MEDS ORDERED: MORPHINE 2 MG/ML SYR IV PRN (05:08)
[2022-12-25] MEDS: METOPROLOL TAR 25 MG TAB PO SCH ×2 (07:07→18:37)
[2022-12-25] MEDS: INSULIN -REGULAR HUMAN 50 UNIT/0.5 ML ML SQ SCH ×4 (07:30→20:45)
--- NOTE | 2022-12-25 08:52 | P.PN ---
Subjective Date of Service: 12/25/22 Chief Complaint: Chest pain Patient experienced some chest pain last night this morning she is asymptomatic scheduled for a cardiac cath tomorrow Review of Systems Unremarkable General: Weakness Physical Examination - Vital Signs Temperature: 96.8 F Blood Pressure: 144/72 Pulse: 79 Respirations: 18 Pulse Ox (%): 100 - Physical Exam General: Alert, In no apparent distress, Oriented x3 Respiratory: Clear to auscultation bilaterally, Friction rub Cardiovascular: Regular rate/rhythm, Normal S1 S2 Gastrointestinal: Normal bowel sounds, Soft and benign Assessment And Plan - Current Problems (Diagnosis) (1) Chest pain Current Visit: Yes Status: Acute Plan: I strongly suspect that patient has unstable angina. We will change management coordinator to IV heparin and hold Eliquis I will also added a beta-jemima scheduled for a cardi ac cath tomorrow patient experienced some chest pain this morning and now is chest pain-free slight bump in her troponin patient has a paced rhythm no obvious ST-T changes on the EKG renal function is improving significant history of coronary artery disease Qualifiers: Ischemic chest pain type: unstable angina pectoris (2) Cystitis Current Visit: Yes Status: Acute Plan: 4+ alphahemolytic strep isolated in the urine most likely contaminated specimen will DC Rocephin for now no evidence of active sepsis
[2022-12-25] MEDS: NEPRO SHAKE 237 ML CAN PO SCH ×3 (09:00→20:45)
[2022-12-25] MEDS: SEVELAMER CARBONATE 800 MG TABLET PO SCH ×3 (09:36→17:30)
[2022-12-25] MEDS: ASPIRIN 81 MG CHEWABLE TABLET PO SCH (09:37)
[2022-12-25] MEDS: DOCUSATE NA 100 MG CAP PO SCH ×2 (09:37→20:44)
[2022-12-25] MEDS: GABAPENTIN 100 MG CAP PO SCH ×2 (09:37→20:44)
[2022-12-25] MEDS: ISOSORBIDE MONO SR 60 MG TAB PO SCH (09:37)
[2022-12-25] MEDS: HEPARIN/D5W 25,000 UNIT/500 ML BAG IV SCH (10:37)
[2022-12-25] MEDS: ESCITALOPRAM 20 MG TAB PO SCH (20:44)
[2022-12-25] MEDS: clonazePAM 0.5 MG TAB PO SCH (20:45)
[2022-12-26 04:44] LABS: Absolute Lymphocytes (CBC) 1.3 K/uL (0.7-4.9); Hematocrit 34.2 % (36.0-45.0); Lymphocytes % 17.3 % (15.3-44.8); MPV 7.1 fL (7.6-11.3); Platelets 323 thou/uL (152-406); RBC Red Blood Cell Count 3.98 M/uL (3.86-4.86)
[2022-12-26 05:00] LABS: Potassium 3.6 mEq/L (3.5-5.1)
[2022-12-26] MEDS: METOPROLOL TAR 25 MG TAB PO SCH ×2 (05:32→18:00)
[2022-12-26] MEDS: HEPARIN/D5W 25,000 UNIT/500 ML BAG IV SCH (07:08)
--- NOTE | 2022-12-26 07:08 | P.PN ---
Date of Service: 12/26/22 Subjective: no acute events overnight for cardiac cath today ROS: 10 point ROS as noted above, otherwise negative Physical Exam: GEN: Alert, oriented, NAD HEENT: Normal conjunctiva, sclera anicteric CV: Regular rate and rhythm, no edema Pulm: Nonlabored respirations on room air ABD: Soft, nontender, nondistended vitals reviewed Problem List: Chest pain h/o of CAD ESRD on HD IDDM2 Hypertension Rheumatoid arthritis Hyperlipidemia COPD, stable History of DVT/PE Chest pain h/o of CAD troponins elevated x3 - peak 62 monitor on telemetry Cardiology consult NPO for tentative heart cath today cont heparin drip cont aspirin ESRD on HD Nephrology consult, has been compliant thus far. IDDM2 ACHS Accu-Chek, SSI Hypertension Rheumatoid arthritis Hyperlipidemia continue home medications. COPD, stable As needed nebs History of DVT/PE Home eliquis on hold started on heparin drip 12/25, cont VTE: Heparin drip Code: Full Dispo: Home pending heart cath
[2022-12-26] MEDS: INSULIN -REGULAR HUMAN 50 UNIT/0.5 ML ML SQ SCH ×4 (07:30→20:42)
[2022-12-26] MEDS: SEVELAMER CARBONATE 800 MG TABLET PO SCH ×3 (08:00→17:00)
[2022-12-26] MEDS: DOCUSATE NA 100 MG CAP PO SCH ×2 (09:00→20:42)
[2022-12-26] MEDS: ISOSORBIDE MONO SR 60 MG TAB PO SCH (09:00)
[2022-12-26] MEDS: NEPRO SHAKE 237 ML CAN PO SCH ×3 (09:00→20:42)
[2022-12-26] MEDS: ASPIRIN 81 MG CHEWABLE TABLET PO SCH (09:00)
[2022-12-26] MEDS: GABAPENTIN 100 MG CAP PO SCH ×2 (09:00→20:42)
--- NOTE | 2022-12-26 13:03 | EKG ---
Test Date: 2022-12-25 Test Time: 05:11:31 Communications Billing Analyst: MARION MEASUREMENT RESULTS: Intervals: Rate: 80 WY: QRSD: 142 QT: 424 QTc: 489 [place]: P: W[place]: QRS: -72 T: 95 INTERPRETIVE STATEMENTS: Atrial flutter Left axis deviation Right bundle branch block Possible Lateral infarct, age undetermined Inferior infarct, age undetermined Abnormal ECG Compared to ECG 12/23/2022 17:46:05 Myocardial infarct finding now present Uncertain supraventricular rhythm no longer present Electronically Signed On 12-26-22 13:02:25 CDT by Lico Wilkins
--- NOTE | 2022-12-26 13:09 | EKG ---
Test Date: 2022-12-23 Test Time: 17:46:05 [employer]: BP MEASUREMENT RESULTS: Intervals: Rate: 80 WI: QRSD: 140 QT: 442 QTc: 509 [place]: P: WI: QRS: -66 T: 84 INTERPRETIVE STATEMENTS: Atrial flutter Left axis deviation Right bundle branch block Abnormal ECG Compared to ECG 11/22/2022 12:16:46 Uncertain supraventricular rhythm now present Right bundle-branch block now present Atrial fibrillation no longer present Myocardial infarct finding no longer present T-wave abnormality no longer present Possible ischemia no longer present Electronically Signed On 12-26-22 13:06:28 CDT by Lico Wilkins
[2022-12-26] MEDS ORDERED: NA CHLORIDE 0.9% 500 ML ONE (13:29)
[2022-12-26] MEDS ORDERED: MIDAZOLAM HCL 2 MG/2 ML INJ ONE (15:02)
[2022-12-26] MEDS ORDERED: FENTANYL CITR 100 MCG/2 ML ONE (15:02)
[2022-12-26] MEDS ORDERED: HEPA 1000U/500MLS 2,000 UNIT/1,000 ML BAG IV ONE (15:02)
[2022-12-26] MEDS ORDERED: ASPIRIN 325 MG TAB ONE (15:03)
[2022-12-26] MEDS ORDERED: CLOPIDOGREL 75 MG TABLET ONE (15:03)
[2022-12-26] MEDS ORDERED: HEPARIN 10,000 UNIT/10 ML VIAL IV ONE (15:03)
[2022-12-26] MEDS ORDERED: TICAGRELOR 90 MG TABLET PO ONE (15:03)
[2022-12-26] MEDS ORDERED: ATROPINE SULF 1 MG/10 ML SYR IV ONE (15:03)
[2022-12-26] MEDS ORDERED: ACETAMINOPHEN 325 MG TABLET PO PRN (17:35)
[2022-12-26] MEDS ORDERED: NITROGLYCERIN 0.4 MG/TAB SL PRN (17:36)
[2022-12-26] MEDS: NA CHLORIDE 0.9% 1,000 ML IV SCH (18:43)
--- NOTE | 2022-12-26 19:00 | OP ---
Date of Procedure: 12/26/2022 Surgeon: CLARITA BURNS Reason For Procedure: Non-ST elevation myocardial infarction. Procedures Performed: 1.Selective coronary angiogram. 2.Left heart catheterization. 3.PCI of severe distal RCA stenosis, which is a culprit. I used a 3.0 x 28 mm drug-eluting stent. 4.PCI of the proximal to mid RCA severe disease, used 3.0 x 32 mm Synergy drug-eluting stent. Indication: Non-ST elevation myocardial infarction. Access: Right femoral artery 6-Beninese closed with 6-Beninese Angio-Seal. Complications: None. Bleeding: Less than 20 mL. Anesthesia: Total sedation time was 50 minutes, used fentanyl and Versed. Description Of Procedure: After risks and benefits, the patient was brought into the cardiac cathete rization laboratory, prepped and draped in the usual sterile fashion. Then, I accessed the right fem oral artery using micropuncture kit, fluoroscopy, and ultrasound guidance, placed 6-Beninese [place] s kassandra and took 6-Beninese JL4 catheter into aortic root, engaged left main and took standard views, and then exchanged for 6-Beninese JR4 catheter and engaged the RCA and took standard views and then the ca theter was pushed over the wire into the LV, measured the LVEDP and pullback did not record any gradi ent. Then gave systemic heparin to assure ACT level above 250 throughout the procedure and then I to ok a 6-Beninese 3DRC guide into the aortic root, engaged the RCA, took a Run-Through wire into the dist al RCA and was able to pass the area of stenosis and then used a 2.0 Compliant balloon, I was able to cross the stenotic lesion and perform balloon angioplasty and then I used a 3.0 balloon, lesion expa nded very well. Then, I placed 3.0 x 28 mm Synergy drug-eluting stent distally and I had to use a Gu ideLiner to deliver the second stent, so I took a 3.0 x 20 mm Compliant balloon initially and then di lated the mid and then the proximal RCA stenosis, and then I took a 3.0 x 32 mm Synergy drug-eluting stent to cover the mid and proximal RCA disease with the help of GuideLiner. Final angiogram was sat isfactory. I then removed the wire. Final angiogram showed that there was still a small area within the stent that did not expand fully, but the expansion was about 95%, which is acceptable huge lumen , as such was left alone and then removed the guide and the sheath and placed a 6-Beninese Angio-Seal f or closure with good hemostasis. Findings: 1.Left main; large and normal. 2.LAD; very large vessel, wraps around the apex, proximal to mid is clean and then mid to distal, th ere is long 30% stenosis. Diagonal branches are normal. 3.Left circumflex; proximal 40% stenosed and the rest of the left circumflex appears to be normal. 4.RCA; it is dominant circulation with proximal 70% to mid 80% stenosis, status post successful PCI as above and distally it was 99% with WANDA-1 flow, status post successful PCI reducing the stenosis t o 10% and WANDA-3 flow as a result. 5.LVEDP slightly elevated at 15 mmHg. Conclusion: 1.Severe proximal mid and distal RCA stenosis, status post successful PCI as above and this is the c ulprit vessel. 2.Elevated LVEDP. This will be managed with dialysis. Plan: Aspirin, Brilinta, and statin and before discharge, she can be switched to Plavix and to see h er in the office in 4 weeks post discharge. SR/MONICAL Voice ID: [id number] Report ID: [id number]
[2022-12-26] MEDS ORDERED: TICAGRELOR 90 MG TABLET PO SCH (20:00)
[2022-12-26] MEDS: ATORVASTATIN 40 MG TAB PO SCH ×2 (20:41→21:00)
[2022-12-26] MEDS: clonazePAM 0.5 MG TAB PO SCH (20:42)
[2022-12-26] MEDS: ESCITALOPRAM 20 MG TAB PO SCH (20:42)
[2022-12-26] MEDS: TICAGRELOR 90 MG TABLET PO SCH (21:57)
--- NOTE | 2022-12-26 22:21 | P.PN ---
Date of Service: 12/26/22 Vital Signs Temp Pulse Resp BP Pulse Ox 96.8 F 79 18 131/60 100 12/26/22 20:00 12/26/22 20:00 12/26/22 20:00 12/26/22 20:00 12/26/22 20:00 Medications Acetaminophen (Acetaminophen 500 Mg Tab) 500 mg PO Q4HP PRN PRN Reason: Pain scale 2-4 (Mild) Acetaminophen (Acetaminophen 325 Mg Tablet) 650 mg PO Q3HP PRN PRN Reason: TEMP > 101' F Apixaban (Apixaban 2.5 Mg Tablet) 2.5 mg PO BID [facility] Last Admin: 12/24/22 20:28 Dose: 2.5 mg Aspirin (Aspirin Ec 81 Mg Tab) 81 mg PO DAILY [facility] Atorvastatin Calcium (Atorvastatin 40 Mg Tab) 40 mg PO BEDTIME [facility] Last Admin: 12/26/22 21:00 Dose: Not Given Clonazepam (Clonazepam 0.5 Mg Tab) 0.5 mg PO BEDTIME [facility] Last Admin: 12/26/22 20:42 Dose: 0.5 mg Docusate Sodium (Docusate Na 100 Mg Cap) 100 mg PO BID [facility] Last Admin: 12/26/22 20:42 Dose: 100 mg Enteral Nutritional Formula (Nepro Shake 237 Ml Can) 237 ml PO TID [facility] Last Admin: 12/26/22 20:42 Dose: Not Given Escitalopram Oxalate (Escitalopram 20 Mg Tab) 20 mg PO BEDTIME [facility] Last Admin: 12/26/22 20:42 Dose: 20 mg Gabapentin (Gabapentin 100 Mg Cap) 100 mg PO BID [facility] Last Admin: 12/26/22 20:42 Dose: 100 mg Heparin Sodium (Porcine) (Heparin 1,000 Unit/Ml Vial) 0 unit IV PRN PRN PRN Reason: Heparin Re-Bolus Per Protocol Last Admin: 12/25/22 15:19 Dose: 3,000 unit Heparin Sodium/Dextrose (Heparin Drip 25,000 Units/5oo Ml Premix) 25,000 unit in 500 mls @ 16 mls/hr IV UD [facility]; Protocol Last Admin: 12/26/22 07:08 Dose: 500 mls Sodium Chloride (Ns 1000 Ml Ivbag) 1,000 mls @ 75 mls/hr IV .[id number] [facility] Last Admin: 12/26/22 18:43 Dose: 1,000 mls Insulin Human Regular (Insulin -Regular Human 50 Unit/0.5 Ml Ml) 0 unit SQ ACHS [facility]; Protocol Last Admin: 12/26/22 20:42 Dose: Not Given Isosorbide Mononitrate (Isosorbide [place] Sr 60 Mg Tab) 60 mg PO DAILY [facility] Last Admin: 12/26/22 09:00 Dose: Not Given Metoprolol Tartrate (Metoprolol Tar 25 Mg Tab) 25 mg PO BID 6AM 6PM [facility] Last Admin: 12/26/22 18:00 Dose: Not Given Morphine Sulfate (Morphine 2 Mg/Ml Syr) 2 mg IV Q6H PRN PRN Reason: Pain scale 8-10 (Severe) Last Admin: 12/25/22 05:25 Dose: 2 mg Nitroglycerin (Nitroglycerin 0.4 Mg/Tab) 0.4 mg SL UD PRN PRN Reason: Pain scale 2-4 (Mild) Ondansetron HCl (Ondansetron 4 Mg/2 Ml Vial) 4 mg IV Q6HP PRN PRN Reason: NAUSEA / VOMITING Sevelamer Carbonate (Sevelamer Carbonate 800 Mg Tablet) 1,600 mg PO TIDWM [facility] Last Admin: 12/26/22 17:00 Dose: Not Given Sodium Chloride (Flush Normal Saline 10 Ml) 10 ml IV BID [facility] Last Admin: 12/26/22 20:42 Dose: Not Given Ticagrelor (Ticagrelor 90 Mg Tablet) 90 mg PO BID [facility] Last Admin: 12/26/22 21:57 Dose: 90 mg Microbiology Results 12/24/22 00:20 Clean Catch Urine [place] Count - Preliminary >100,000 CFU/ML. 12/24/22 00:20 Clean Catch Urine - Preliminary 12/23/22 17:35 Blood - Blood Aerobic Blood Culture - Preliminary No growth in 24 hours. 12/23/22 17:35 Blood - Blood Anaerobic Blood Culture - Preliminary No growth in 24 hours. 12/23/22 17:20 Blood - Blood Aerobic Blood Culture - Preliminary No growth in 24 hours. 12/23/22 17:20 Blood - Blood Anaerobic Blood Culture - Preliminary No growth in 24 hours. Assessment/ Plan: Nephrology No dyspnea No chest pain No acute events overnight Limited IH/ ROS due to AMS Vitals, medications, blood work and imaging reviewed in the chart. NAD. Supine. NCAT. MMM. Neck supple. Normal respiratory effort. RRR. Abd ND. No C/C. LE Edema none. No rash. AAO. Normal speech. ESRD on HD Proteinuria -HD TIW Hyponatremia -HD TIW HTN with CKD/ CHF -Continue Metoprolol Diatolic CHF, chronic -Low sodium diet -Daily weight -HD with UF DM II with CKD -RISS Anemia in CKD -Monitor H&H CKD MBD -Continue Renvela Case reviewed with Dr. Ellison
[2022-12-27] MEDS: NA CHLORIDE 0.9% 1,000 ML IV SCH (05:01)
[2022-12-27] MEDS: METOPROLOL TAR 25 MG TAB PO SCH (05:01)
[2022-12-27 06:36] LABS: Magnesium 2.1 mg/dL (1.6-2.4); Potassium 3.6 mEq/L (3.5-5.1)
[2022-12-27] MEDS: INSULIN -REGULAR HUMAN 50 UNIT/0.5 ML ML SQ SCH ×2 (07:30→11:30)
[2022-12-27] MEDS: NEPRO SHAKE 237 ML CAN PO SCH ×2 (09:00→14:00)
[2022-12-27] MEDS ORDERED: ASPIRIN EC 81 MG TAB PO SCH (09:00)
[2022-12-27] MEDS: ISOSORBIDE MONO SR 60 MG TAB PO SCH (10:02)
[2022-12-27] MEDS: SEVELAMER CARBONATE 800 MG TABLET PO SCH ×2 (10:02→12:12)
[2022-12-27] MEDS: DOCUSATE NA 100 MG CAP PO SCH (10:02)
[2022-12-27] MEDS: GABAPENTIN 100 MG CAP PO SCH (10:03)
[2022-12-27] MEDS: TICAGRELOR 90 MG TABLET PO SCH (10:03)
[2022-12-27 13:02] VITALS: BP 148/77; TEMP 97.1
--- NOTE | 2022-12-27 13:08 | P.DS ---
Admission Date: 12/24/22 Discharge Date: 12/27/22 Disposition: TRANSFER TO [facility] Discharge Condition: FAIR Reason for Admission: Chest pain Brief History of Present Illness: 72-year-old female with history of ESRD on HD, diabetes type 2, CAD, COPD, hypertension, RA presented to the Emergency Department with chief complaint of chest pain, lethargy. She was found to have decreased mental status and was complaining of chest pain, for this reason she was brought to the emergency department. She was evaluated in the ER and labs were significant for creatinine 3.7 GFR 12 BUN 35 glucose 151 initial high-sensitivity troponin 65.0 chest x-ray negative for acute findings EKG without STEMI criteria. Patient was admitted for ACS rule out. Hospital Course: Diagnosis Chest pain h/o of CAD ESRD on HD IDDM2 Hypertension Rheumatoid arthritis Hyperlipidemia COPD, stable History of DVT/PE VRE UTI Chest pain h/o of CAD troponins elevated x3 - peak [address] Wilkins consulted Patient started on heparin drip and cardiac cath performed. RCA was stented. Clinically stable postcardiac cath. Currently asymptomatic. Dr. Wilkins recommended aspirin and Brilinta as inpatient and then aspirin and Plavix on discharge. Patient is on Eliquis which was continued during the hospital stay. Eliquis is resumed on discharge. Dr. Wilkins recommend follow-up with him within 2 weeks. ESRD on HD Nephrology consulted. She underwent routine hemodialysis. IDDM2 Managed with ACHS Accu-Chek, SSI Hypertension Rheumatoid arthritis Hyperlipidemia continued home medications. COPD, stable As needed nebs History of DVT/PE Home eliquis held briefly and bridged with heparin drip for cardiac cath and resumed post cardiac cath. VRE UTI Urine culture was positive for VRE. Patient is a hemodialysis patient and suspect this is colonization. Noted patient was on Zyvox prior to admission. Zyvox is resumed on discharge. Vital Signs/Physical Exam: Temp Pulse Resp BP Pulse Ox 96.4 F L 80 16 150/64 H 96 12/27/22 08:00 12/27/22 08:00 12/27/22 08:00 12/27/22 08:00 12/27/22 08:00 General: Alert, In no apparent distress, Oriented x3 HEENT: Mucous membr. moist/pink Neck: Supple, JVD not distended Respiratory: Clear to auscultation bilaterally, Normal air movement Cardiovascular: No edema, Regular rate/rhythm, Normal S1 S2 Gastrointestinal: Normal bowel sounds, Soft and benign, Non-distended, No asc ites Musculoskeletal: No swelling Neurological: Normal strength at 5/5 x4 extr Laboratory Data at Discharge: WBC 7.50 thou/uL (4.3-10.9) 12/26/22 04:36 Hgb 10.8 g/dL (12.0-15.0) L 12/26/22 04:36 Hct 34.2 % (36.0-45.0) L 12/26/22 04:36 Plt Count 323 thou/uL (152-406) 12/26/22 04:36 PT 21.3 SECONDS (9.5-12.5) H 12/23/22 17:28 INR 1.94 12/23/22 17:28 APTT Cancelled 12/26/22 17:00 Sodium 134 mEq/L (136-145) L 12/27/22 05:40 Potassium 3.6 mEq/L (3.5-5.1) 12/27/22 05:40 BUN 30 mg/dL (7-18) H 12/27/22 05:40 Creatinine 3.75 mg/dL (0.55-1.02) H 12/27/22 05:40 Glucose 122 mg/dL (74-106) H 12/27/22 05:40 Magnesium 2.1 mg/dL (1.6-2.4) 12/27/22 05:40 Total Bilirubin 0.6 mg/dL (0.2-1.0) 12/23/22 17:28 AST 10 U/L (15-37) L 12/23/22 17:28 ALT < 10 U/L (13-56) L 12/23/22 17:28 Alkaline Phosphatase 115 U/L (45-117) 12/23/22 17:28 Triglycerides 79 mg/dL (<150) 12/24/22 06:17 Cholesterol 83 mg/dL (<200) 12/24/22 06:17 HDL Cholesterol 29 mg/dL (40-60) L 12/24/22 06:17 Cholesterol/HDL Ratio 2.86 12/24/22 06:17 Home Medications: Sevelamer Carbonate [Renvela*] 2 tab PO TIDWM 01/02/22 Gabapentin 100 mg PO BID 07/19/22 Midodrine HCl 5 mg PO BID 07/19/22 Apixaban [Eliquis *] 2.5 mg PO BID #60 tab 11/18/22 Nepro Shake [Nepro*] 237 ml PO TID #90 can 11/18/22 Docusate [Colace Cap*] 100 mg PO BID 12/24/22 Escitalopram [Lexapro*] 1 tab PO BEDTIME 12/24/22 Insulin Lispro [Humalog] See Protocol SQ ACHS 12/24/22 Isosorbide Mononitrate [Isosorbide Mononitrate ER] 1 tab PO DAILY 12/24/22 Linezolid [Zyvox*] 1 tab PO BID 12/24/22 clonazePAM [Clonazepam] 1 tab PO BEDTIME 12/24/22 Aspirin [Aspirin EC 81 MG] 81 mg PO DAILY #30 tab 12/27/22 Atorvastatin Calcium [Lipitor] 40 mg PO BEDTIME tab 12/27/22 Clopidogrel Bisulfate [Plavix] 75 mg PO DAILY #30 tab 12/27/22 Metoprolol Tartrate [Lopressor*] 25 mg PO BID 6AM 6PM #0 tab 12/27/22 New Medications: Aspirin [Aspirin EC 81 MG] 81 mg PO DAILY #30 tab Clopidogrel Bisulfate [Plavix] 75 mg PO DAILY #30 tab Diet: AHA Activity: Fall precautions Followup: NONE,NONE [Primary Care Provider] - Lico Wilkins MD [ACTIVE - CAN ADMIT] - (Within 2 weeks) Time spent managing pt's care (in minutes): 34
[2022-12-27 14:06] VITALS: O2SAT 96
--- NOTE | 2022-12-27 16:33 | PN ---
Date of Progress Note: 12/26/2022 Subjective: Seen by bedside. Doing well. No further chest pain. Review of Systems: No chest pain, shortness of breath, orthopnea, cough. No nausea, vomiting, diarrhea. All other syst ems reviewed and they were negative. Physical Examination: Vital Signs: Reviewed. Head and Neck: Pupils are equal, reactive to light. Intact eye movements. No JVD. No cervical lym phadenopathy. Lungs: Clear bilaterally. No accessory muscle use or muscle retraction. Heart: Regular rate and rhythm. No extra sounds. Abdomen: Soft, nontender. Bowel sounds positive. No organomegaly. No masses or hernia. No rigidi ty or rebound. Extremities: No edema, clubbing, or cyanosis. Intact pulses. Skin: No rash. Neurologic: Alert, awake, oriented x3. No acute focal deficits appreciated. Investigations: Labs were reviewed. Assessment And Recommendations: 1.Non-ST elevation myocardial infarction, status post coronary angiogram. She had an almost total o cclusion of the RCA status post successful percutaneous coronary intervention. Continue aspirin, Christopher vix, and statin. Monitor for 24 hours and she can be released within next 24 hours if she continues to do well. 2.Chronic kidney disease, on dialysis. Continue dialysis inpatient as planned. 3.Dyslipidemia. Continue statin, Lipitor 40 mg at bedtime. SR/MODL Voice ID: [id number] Report ID: [id number]
--- NOTE | 2022-12-28 18:18 | EKG ---
Test Date: 2022-12-25 Test Time: 05:14:00 Banking Manager: MARION MEASUREMENT RESULTS: Intervals: Rate: 80 SC: QRSD: 138 QT: 484 QTc: 558 [place]: P: 110 SC: QRS: -64 T: 75 INTERPRETIVE STATEMENTS: Atrial flutter Left axis deviation Right bundle branch block Possible Lateral infarct, age undetermined Abnormal ECG Compared to ECG 12/25/2022 05:11:31 No significant changes Electronically Signed On 12-28-22 18:13:30 CDT by Lico Wilkins
== END 2022-12-27 15:53 | DRG 246 ==
LOC: ER 16:46 → ERHOLD 20:22 → 2ND 21:47 → OBSVTOIN 12-24 10:41
PROVIDERS: ADMIT Internal Medicine Sleep Medicine; ATTEND Internal Medicine
PROC: 5A1D70Z Performance of Urinary Filtration, Intermittent, Less than 6 Hours Per Day (ICD-10-PCS; 2022-12-24)
PROC: 027035Z Dilation of Coronary Artery, One Artery with Two Drug-eluting Intraluminal Devices, Percutaneous Approach (ICD-10-PCS; principal; 2022-12-26)
PROC: 4A023N7 Measurement of Cardiac Sampling and Pressure, Left Heart, Percutaneous Approach (ICD-10-PCS; 2022-12-26)
PROC: B2111ZZ Fluoroscopy of Multiple Coronary Arteries using Low Osmolar Contrast (ICD-10-PCS; 2022-12-26)
DX: I21.4 Non-ST elevation (NSTEMI) myocardial infarction (principal); N18.6 End stage renal disease; E87.1 Hypo-osmolality and hyponatremia; N30.00 Acute cystitis without hematuria; I13.0 Hypertensive heart and chronic kidney disease with heart failure and stage 1 through stage 4 chronic kidney disease, or unspecified chronic kidney disease; I50.32 Chronic diastolic (congestive) heart failure; Z16.21 Resistance to vancomycin; E11.22 Type 2 diabetes mellitus with diabetic chronic kidney disease; D63.1 Anemia in chronic kidney disease; I48.91 Unspecified atrial fibrillation; M06.9 Rheumatoid arthritis, unspecified; I45.10 Unspecified right bundle-branch block; E78.5 Hyperlipidemia, unspecified; J44.9 Chronic obstructive pulmonary disease, unspecified; I25.10 Atherosclerotic heart disease of native coronary artery without angina pectoris; F03.90 Unspecified dementia, unspecified severity, without behavioral disturbance, psychotic disturbance, mood disturbance, and anxiety; I25.2 Old myocardial infarction; Z63.4 Disappearance and death of family member; Z95.9 Presence of cardiac and vascular implant and graft, unspecified; Z99.2 Dependence on renal dialysis; Z79.4 Long term (current) use of insulin; Z90.49 Acquired absence of other specified parts of digestive tract; Z79.02 Long term (current) use of antithrombotics/antiplatelets; Z79.01 Long term (current) use of anticoagulants; Z79.899 Other long term (current) drug therapy; Z90.710 Acquired absence of both cervix and uterus; Z86.718 Personal history of other venous thrombosis and embolism; Z86.711 Personal history of pulmonary embolism; Z95.810 Presence of automatic (implantable) cardiac defibrillator; Z91.158 Patient's noncompliance with renal dialysis for other reason
CPT/HCPCS: 36415; 71045; 76937; 80048; 80053; 80061; 81001; 82947; 83605; 83735; 84439; 84443; 84484; 85025; 85347; 85610; 85730; 87040; 87077; 87086; 87088; 87186; 90935; 93005; 93458; 97161; 97530; 99285; C1725; C1760; C1893; C9600; G0269; J0461; J0696; J1644; J2250; J2270; J3010; J7030; J7040; Q9967

== ENCOUNTER 2022-12-29 11:11 | Inpatient (IN) | payer OTHER ==
--- OUTSIDE RECORDS SUMMARY | 2022-12-29 11:24 | XMS REPORT | Continuity of Care Document ---
:1950 Author Organization [facility] t Address [address] [facility] [address] [place] [address] Care Team Providers Name Role Phone Pcp, Patient Does Not Have A Primary Care Physician [phone] Attending Clinician Unavailable Greg Fuentes Attending Clinician Unavailable Anirudh Philippe Rahil Attending Clinician Unavailable Doctor Unassigned, [place] Attending Clinician Unavailable Luc Alvarez Attending Clinician Alannah Renner MD Attending Clinician Annalee Bey MD Attending Clinician Mauro Mendoza MD Attending Clinician ANNALEE BEY Attending Clinician Unavailable ALANNAH RENNER Attending Clinician Unavailable Derian HOLLIDAY, Trinidad Reza Attending Clinician Corrine Osuna MD Attending Clinician Edwin Kaur MD Attending Clinician [phone] John HOLLIDAY, Shanon Vidal Attending Clinician [phone] Tim HOLLIDAY, Tammy Thompson Attending Clinician Armen [...] MD CORRINE OSUNA Attending Clinician Unavailable DAVID IHGUERA Attending Clinician Unavailable SHAKEEL NARANJO Attending Clinician Unavailable SARAI SANDRA Attending Clinician Unavailable [id number] Admitting Clinician Unavailable Radha Cabrera Admitting Clinician Unavailable Anirudh Philippe Rahil Admitting Clinician Unavailable SHIRLEY PARKS Admitting Clinician Unavailable CORRINE OSUNA Admitting Clinician Unavailable TAMMY DUMONT Admitting Clinician Unavailable Michaela Admitting Clinician Unavailable MD CORRINE OSUNA Admitting Clinician Unavailable SARAI SANDRA Admitting Clinician Unavailable Payers Payer Name Policy Type Policy Number Effective Date Expiration Date S gus [facility] [id number] 2021 (NON-CONTRACTED) 00:00:00 [facility] [id number] 2021 [facility] 00:00:00 [facility] [id number] [facility] - [id number] [facility] (O) Problems Condition Condition Condition Status [...] ethodi rosis of rosis of [facility]osp[facility] coronary coronary 00 l artery of artery of [facility] heart heart without without angina angina pectoris [...] (chronic 827 ity of kidney kidney 00:00: [place] disease) disease) 00 Medica l stage 4, stage 4, Branch GFR 15-29 GFR 15-29 ml/min ml/min Type 2 Type 2 Disease Active Overview: Univer s diabetes diabetes Formattin ity of mellitus mellitus g of this [place] as with with note Medical diabetic diabetic might be Bran ch nephropath nephropath different y y from the original. follows with Dr. Ngo in [place] Neuropathy Neuropathy Disease Active Overview : Univers Formattin ity of g of this [place] note Medical might be Branch different from the original. in feet and legs Hyperchole Hyperchole Disease Active Overview : Univers steremia steremia Formattin ity of g of this [place] note Medical might be Branch different from the original. follows with Dr. Higuera HTN HTN Disease Active Overview: Univer s (hypertens (hypertens Formattin ity of ion) ion) g of this [place] note Medical might be Branch different from the original. follows with Dr. Higuera Atrial Atrial Disease Active Overview: [facility] s fibrillati fibrillati Formattin ity of on on g of this [place] note Medical might be Branch different from the original. follows with Dr. Higuera Allergies, Adverse Reactions, Alerts Allergy Allergy Status Severity Reaction(s) Onset Inactive Treating Comm ents Source Name Type Date Date Clinician No Known DA Active U [facility] Allergie 1-17 Clear s 00:00: An 00 [facility] Hydrocod Propensi Active GI "not an Metho di one ty to Intolerance 1-12 allergy, st adverse 00:00: but it Hospita reaction 00 upsets my l s to stomach drug every time I take it" No Known DA Active U [facility] Allergie 9-11 Clear s 00:00: An 00 [facility] NO KNOWN Allergy Active [facility] NO KNOWN Drug Active Univers ALLERGIE Class ity of S [place] [facility] Family History Family Member Diagnosis Comments Start Date Stop Date Source Natural sister Breast cancer [facility] Natural sister Cancer [facility] Natural brother Cancer [facility] Natural brother Colon cancer [facility] Natural brother Lung cancer [facility] Maternal grandmother Brain cancer [facility] Maternal grandmother [facility] Natural mother Cancer [facility] Natural mother Uterine [facility] Social History Social Habit Start Date Stop Date Quantity Comments Source History SDOH [facility] Alcohol Std Drinks Hospit al Gender identity [facility] Sexual orientation Method [facility] History of Social 2022-07-28 2022-07-[address] function 00:00:00 00:00:00 Hospital Tobacco use and 2022-01-08 2022-01-[address] [facility] kes exposure 00:00:00 00:00:00 tobacco non-user Medical Center Alcohol intake 2021-09-14 2021-09-14 Current Catholic 00:00:00 00:00:00 non-drinker of Hospital alcohol (finding) History [facility] 2020-04-05 2020-04-05 1 Catholic Alcohol Frequency 00:00:00 00:00:00 Hospita l History [facility] 2020-04-05 2020-04-05 1 [facility] Alcohol Binge 00:00:00 00:00:00 Hospital Sex [birth year] At [birth year] Catholic 00:00:00 00:00:00 Hospital Smoking Status Start Date Stop Date Source Never smoked tobacco [facility] Center Medications Ordered Filled Start Stop Current Ordering Indication Dosage Frequency Signature Comments Components Source Medication Medication Date Date Medication? Clinician (SIG) Name Name aspirin 81 Yes 81mg QD Take [address] MG chewable 8-30 by mouth Luke s tablet 16:49: daily. [address] apixaban Yes 2.5mg Q.5D Take 2.5 [...] MG 16:49: mouth Medical tablet 03 nightly. [place] aspirin 81 0 Yes 81mg QD Take [address] MG chewable 8-30 by mouth Luke s tablet 16:49: daily. [address] apixaban Yes 2.5mg Q.5D Take 2.[address] (Eliquis) 8-30 mg by [facility] 2.5 mg Tab 16:49: mouth 2 Medi [place] tablet 03 (two) Center times daily. pramipexole 2021-0 Yes 1mg QD Take [address] (MIRAPEX) 1 8-30 by mouth Luke s MG tablet 16:49: nightly. [address] semaglutide 2021-0 Yes .25mg Inject CHI [...] MG 16:49: mouth Medical tablet 03 nightly. [place] aspirin 81 2021-0 Yes 81mg QD Take [address] MG chewable 8-30 by mouth Luke s tablet 16:49: daily. [address] apixaban 2021-0 Yes 2.5mg Q.5D Take 2.[address] (Eliquis) 8-30 mg by [facility] 2.5 mg Tab 16:49: mouth 2 Medi [place] tablet 03 (two) Center times daily. pramipexole 2021-0 Yes 1mg QD Take [address] (MIRAPEX) 1 8-30 by mouth Luke s MG tablet 16:49: nightly. [address] semaglutide 0 Yes .25mg Inject CHI [...] MG 16:49: mouth Medical tablet 03 nightly. [place] aspirin 81 2021-0 Yes 81mg QD Take [address] MG chewable 8-30 by mouth Luke s tablet 16:49: daily. [address] apixaban 0 Yes 2.5mg Q.5D Take 2.[address] (Eliquis) 8-30 mg by [facility] 2.5 mg Tab 16:49: mouth 2 Medi [place] tablet 03 (two) Center times daily. pramipexole 0 Yes 1mg QD Take [address] (MIRAPEX) 1 8-30 by mouth Luke s MG tablet 16:49: nightly. [address] semaglutide 0 Yes .25mg Inject [facility] (Ozempic) 8-30 0.25 mg [facility]ukes 0.25 mg or 16:49: subcutaneo M edical 0.5 mg(2 03 usly every Cente r mg/1.5 mL) 7 days PnIj Every Monday . pantoprazol 0 Yes 40mg QD Take [address] e 8-30 by mouth [facility]ukes (PROTONIX) 16:49: daily. Medic al [address] [place] [address] tablet traZODone 0 Yes 100mg QD Take [address] (DESYREL) 8-30 mg by [facility]ukes 100 MG 16:49: mouth Medical tablet 03 nightly. [place] aspirin 81 0 Yes 81mg QD Take [address] MG chewable 8-30 by mouth Luke s tablet 16:49: daily. [address] apixaban 0 Yes 2.5mg Q.5D Take 2.[address] (Eliquis) 8-30 mg by [facility] 2.5 mg Tab 16:49: mouth 2 Medi [place] tablet 03 (two) Center times daily. pramipexole 2021-0 Yes 1mg QD Take [address] (MIRAPEX) 1 8-30 by mouth Luke s MG tablet 16:49: nightly. [address] semaglutide 0 Yes .25mg Inject CHI [...] by mouth Luke s tablet 16:49: daily. [facility] 03 [place] apixaban 2021-0 Yes 2.5mg Q.5D Take 2.[address] (Eliquis) 8-30 mg by [facility] 2.5 mg Tab 16:49: mouth 2 Medi [place] tablet 03 (two) Center times daily. pramipexole 2021-0 Yes 1mg QD Take [address] (MIRAPEX) 1 8-30 by mouth Luke s MG tablet 16:49: nightly. Medi [place] 03 [place] semaglutide 0 Yes .25mg Inject [facility] [...] MG 16:49: mouth Medical tablet 03 nightly. [place] aspirin 81 2021-0 Yes 81mg QD Take [address] MG chewable 8-30 by mouth Luke s tablet 16:49: daily. [facility] 03 [place] apixaban 2021-0 Yes 2.5mg Q.5D Take 2.5 [...] 03 nightly. Center hydrALAZINE 2021- No 25mg Q.[id number] Take [address] (APRESOLINE -18 01-30 [id number] by mouth 3 [facility] ) 25 MG [...] 00:00 mouth Medical capsule 27 :00 daily. [place] hydrALAZINE 2021- No 25mg Q.[id number] Take [address] (APRESOLINE 01-18-30 [id number] by mouth 3 [facility] ) 25 MG [...] :00 daily. Center hydrALAZINE 2021- No 25mg Q.[id number] Take [address] (APRESOLINE 01-18 [id number] by mouth 3 [facility] ) 25 MG [...] 00:00 subcutaneo Me dical SEMGLEE) 27 :00 [facility] Center 100 unit/mL nightly injection Use [...] nightly. Med ical 10 MG 27 :00 [place] tablet melatonin 2021- No 10mg QD Take [address] 10 mg TbDL 01-1830 by mouth Luke s 11:55: 00:00 nightly. Medical 27 :00 [place] insulin 2021- No 10U Inject [address] aspart 01-18-30 Units [facility]ukes U-100 11:55: 00:00 subcutaneo Medic al (NovoLOG) 27 :00 usly 3 Center 100 unit/mL (three) (3 mL) InPn times daily before meals. calcitrioL 2021- No .25ug QD Take 0.[address] (ROCALTROL) 01-18-30 mcg by [facility]ukes 0.25 MCG 11:55: 00:00 mouth Medical capsule 27 :00 daily. [place] hydrALAZINE 2021- No 25mg Q.[id number] Take [address] (APRESOLINE 01-18 [id number] by mouth 3 [facility] ) 25 MG [...] 11:55: 00:00 nightly. Med ical 27 :00 [place] isosorbide 2021- No 60mg QD Take 60 [...] :00 daily. Center hydrALAZINE 2021- No 25mg Q.[id number] Take [address] (APRESOLINE 01-18- [id number] by mouth 3 [facility] ) 25 MG [...] :00 daily. Center hydrALAZINE 2021- No 25mg Q.[id number] Take [address] (APRESOLINE 01-18 [id number] by mouth 3 [facility] ) 25 MG [...] 00:00 subcutaneo Me dical SEMGLEE) 27 :00 [facility] Center 100 unit/mL nightly injection Use [...] :00 daily. Center hydrALAZINE 2021- No 25mg Q.[id number] Take [address] (APRESOLINE 01-18 [id number] by mouth 3 [facility] ) 25 MG [...] [facility] -acetaminop -02-17 tablet by Camilel pablo (NORCO 00:00: 23:59 mouth Medic al [...] for 14 doses. vancomycin 2021- No 125mg Q.[id number] Take 1 [facility] (Vancocin) 09-24 05-[id number] 125 MG 00:00: 04:59 3D (125 mg Hospita capsule 00 :00 total) by l mouth 3 (three) times a day for 8 doses. vancomycin 2021- No 125mg Q.[id number] Take 1 [facility] (Vancocin) 09-24 05-[id number] 125 MG 00:00: 04:59 3D (125 mg Hospita capsule 00 :00 total) by l mouth 3 (three) times a day for 8 doses. vancomycin 2021- No 125mg Q.[id number] Take 1 [facility] (Vancocin) 09-24 05-[id number] 125 MG 00:00: 04:59 3D (125 mg Hospita capsule 00 :00 total) by l mouth 3 (three) times a day for 8 doses. vancomycin 2021- No 125mg Q.[id number] Take 1 [facility] (Vancocin) 09-24 05-[id number] 125 MG 00:00: 04:59 3D [...] 51 daily. l hydrALAZINE 2021- No 25mg Q.[id number] Take 1 [facility] (APRESOLINE -16 10-29 [id number] tablet (25 st ) 25 MG 00:00: [...] for 30 days. hydrALAZINE 2021- No 25mg Q.[id number] Take 1 [facility] (APRESOLINE 09-16- [id number] tablet (25 st ) 25 MG 00:00: [...] for 30 days. hydrALAZINE 2021- No 25mg Q.[id number] Take 1 [facility] (APRESOLINE -16 10-29 [id number] tablet (25 st ) 25 MG 00:00: [...] for 30 days. hydrALAZINE 2021- No 25mg Q.[id number] Take 1 [facility] (APRESOLINE 09-16-29 [id number] tablet (25 st ) 25 MG 00:00: [...] 30 days. hydrALAZINE 2021-0 2021- No 25mg Q.[id number] Take 1 [facility] (APRESOLINE 4-16 10-29 [id number] tablet (25 st ) 25 MG 00:00: [...] for 30 days. hydrALAZINE 2021- No 25mg Q.[id number] Take 1 [facility] (APRESOLINE 4-16 10-29 [id number] tablet (25 st ) 25 MG 00:00: [...] QD Inject 100 Met hodi GLARGINE 08-[address] (LANTUS) 19:46: 00:00 under the Hos keo 100 unit/mL 04 :00 skin l injection daily. (vial) digOXIN 2021- No 125ug QD Take 125 Meth ramiro (LANOXIN) 08-[address] 125 mcg 19:46: 00:00 [...] times a day. hydrALAZINE 2021-2021- No 100mg Q.[id number] Take 100 [facility] (APRESOLINE 3-25 03-[id number] ) 100 MG 19:46: [...] times a day. hydrALAZINE 2021-2021- No 100mg Q.[id number] Take 100 [facility] (APRESOLINE 3-25 03-[id number] ) 100 MG 19:46: [...] for 30 days. hydrALAZINE 2021- No 50mg Q.[id number] Take 1 [facility] (APRESOLINE 3-25 04-28 [id number] tablet (50 st ) 50 MG 00:00: [...] Q.5D Take 1 Meth ramiro (COREG) 25 25 -28 tablet (25 st MG tablet 00:00: 00:00 mg total) Ho spita 00 :00 by mouth 2 l (two) times a day for 30 days. hydrALAZINE 2021- No 50mg Q.[id number] Take 1 [facility] (APRESOLINE -25 - [id number] tablet (50 st ) 50 MG 00:00: [...] QD Take 1 Met hodi (JANUVIA) 1-15 -15 tablet (25 st 25 MG 00:00: [...] 60mg QD Take 1 Meth [facility] mononitrate 14 -14 tablet (60 s t (IMDUR) 60 [...] morning for 30 days. levalbutero 2021- No [id number] 1.25mg Q8H Take 3 mL Methodi l [...] for 30 days. insulin 2021- No 5U Q.[id number] Inject M ethodi LISPRO 06-04 [id number] 0.05 mL (5 st (ADMELOG) 00:00: 05:59 [...] to 30 days. budesonide 2020-05 Yes 3mg Q.[id number] Take 3 mg [facility] EC 2-12 [id number] by mouth 3 st (ENTOCORT 00:00: 3D (three) Hospi ta EC) 3 mg 24 00 times a l hr capsule day. budesonide 2020-05 Yes 3mg Q.[id number] Take 3 mg Methodi EC 2-12 [id number] by mouth 3 st (ENTOCORT 00:00: 3D (three) Hospi ta EC) 3 mg 24 00 times a l hr capsule day. budesonide 2020-05 Yes 3mg Q.[id number] Take 3 mg [facility]i EC 2-12 [id number] by mouth 3 st (ENTOCORT 00:00: 3D (three) Hospi ta EC) 3 mg 24 00 times a l hr capsule day. budesonide 2020-05 Yes 3mg Q.[id number] Take 3 mg Methodi EC 2-12 [id number] by mouth 3 st (ENTOCORT 00:00: 3D (three) Hospi ta EC) 3 mg 24 00 times a l hr capsule day. budesonide 2020-05 Yes 3mg Q.[id number] Take 3 mg Methodi EC 2-12 [id number] by mouth 3 st (ENTOCORT 00:00: 3D (three) Hospi ta EC) 3 mg 24 00 times a l hr capsule day. budesonide 2020-05 Yes 3mg Q.[id number] Take 3 mg Methodi EC 2-12 [id number] by mouth 3 st (ENTOCORT 00:00: 3D (three) Hospi ta EC) 3 mg 24 00 times a l hr capsule day. budesonide 2020-05 Yes 3mg Q.[id number] Take 3 mg Methodi EC 2-12 [id number] by mouth 3 st (ENTOCORT 00:00: 3D (three) Hospi ta EC) 3 mg 24 00 times a l hr capsule day. budesonide 2020-05 Yes 3mg Q.[id number] Take 3 mg Methodi EC 2-12 [id number] by mouth 3 st (ENTOCORT 00:00: 3D (three) Hospi ta EC) 3 mg 24 00 times a l hr capsule day. budesonide 2020-05 Yes 3mg Q.[id number] Take 3 mg Methodi EC 2-12 [id number] by mouth 3 st (ENTOCORT 00:00: 3D (three) Hospi ta EC) 3 mg 24 00 times a l hr capsule day. budesonide 2020-05 Yes 3mg Q.[id number] Take 3 mg Methodi EC 2-12 [id number] by mouth 3 st (ENTOCORT 00:00: 3D [...] Under breast and between legs allopurinol Yes [id number] 150mg Take 150 Univers (ZYLOPRIM) 1-04 mg by ity of 100 mg 15:21: mouth [place] tablet 32 daily. Medical Branch CALCIUM Yes .25mg Take 0.25 Univ ers CARBONATE/V 1-04 mg by ity of ITAMIN D3 15:21: mouth [place] (VITAMIN 32 daily. Medical D-3 ORAL) Branch allopurinol Yes [id number] 150mg Take 150 Univers (ZYLOPRIM) 1-04 mg by ity of 100 mg 15:21: mouth [place] tablet 32 daily. Medical Branch CALCIUM Yes .25mg Take 0.25 Univ ers CARBONATE/V 1-04 mg by ity of ITAMIN D3 15:21: mouth [place] (VITAMIN 32 daily. Medical D-3 ORAL) Branch allopurinol Yes [id number] 150mg Take 150 Univers (ZYLOPRIM) 1-04 mg by ity of 100 mg 15:21: mouth [place] tablet 32 daily. Medical Branch CALCIUM Yes .25mg Take 0.25 Univ ers CARBONATE/V 1-04 mg by ity of ITAMIN D3 15:21: mouth [place] (VITAMIN 32 daily. Medical D-3 ORAL) Branch allopurinol Yes [id number] 150mg Take 150 Univers (ZYLOPRIM) 1-04 mg by ity of 100 mg 15:21: mouth [place] tablet 32 daily. Medical Branch CALCIUM Yes .25mg Take 0.25 Univ ers CARBONATE/V 1-04 mg by ity of ITAMIN D3 15:21: mouth [place] (VITAMIN 32 daily. Medical D-3 ORAL) Branch allopurinol Yes [id number] 150mg Take 150 Univers (ZYLOPRIM) 1-04 mg by ity of 100 mg 15:21: mouth [place] tablet 32 daily. Medical Branch CALCIUM Yes .25mg Take 0.25 Univ ers CARBONATE/V 1-04 mg by ity of ITAMIN D3 15:21: mouth [place] (VITAMIN 32 daily. Medical D-3 ORAL) Branch allopurinol Yes [id number] 150mg Take 150 Univers (ZYLOPRIM) 1-04 mg by ity of 100 mg 15:21: mouth [place] tablet 32 daily. Medical Branch allopurinol Yes [id number] 150mg Take 150 Univers (ZYLOPRIM) 1-04 mg by ity of 100 mg 15:21: mouth [place] tablet 32 daily. Medical Branch CALCIUM Yes .25mg Take 0.25 Univ ers CARBONATE/V 1-04 mg by ity of ITAMIN D3 15:21: mouth [place] (VITAMIN 32 daily. Medical D-3 ORAL) Branch allopurinol Yes [id number] 150mg Take 150 Univers (ZYLOPRIM) 1-04 mg [...] daily. Medical D-3 ORAL) Branch allopurinol Yes [id number] 150mg Take 150 Univers (ZYLOPRIM) 1-04 mg by ity of 100 mg 15:21: mouth [place] tablet 32 daily. Medical Branch CALCIUM Yes .25mg Take 0.25 Univ ers CARBONATE/V 1-04 mg by ity of ITAMIN D3 15:21: mouth [place] (VITAMIN 32 daily. Medical D-3 ORAL) Branch allopurinol Yes [id number] 150mg Take 150 Univers (ZYLOPRIM) 1-04 mg by ity of 100 mg 15:21: mouth [place] tablet 32 daily. Medical Branch CALCIUM Yes .25mg Take 0.25 Univ ers CARBONATE/V 1-04 mg by ity of ITAMIN D3 15:21: mouth [place] (VITAMIN 32 daily. Medical D-3 ORAL) Branch allopurinol Yes [id number] 150mg Take 150 Univers (ZYLOPRIM) 1-04 mg by ity of 100 mg 15:21: mouth [place] tablet 32 daily. [facility] CALCIUM Yes .25mg Take 0.25 Univ ers CARBONATE/V 1-04 mg by ity of ITAMIN D3 15:21: mouth [place] (VITAMIN 32 daily. Medical D-3 ORAL) Branch furosemide Yes [id number] 40mg Take 40 mg Univers (LASIX) 20 1-04 by mouth ity o f mg tablet 15:19: daily. [address] furosemide Yes [id number] 40mg Take 40 mg Univers (LASIX) 20 1-04 by mouth ity o f mg tablet 15:19: daily. [address] furosemide Yes [id number] 40mg Take 40 mg Univers (LASIX) 20 1-04 by mouth ity o f mg tablet 15:19: daily. [address] furosemide Yes [id number] 40mg Take 40 mg Univers (LASIX) 20 1-04 by mouth ity o f mg tablet 15:19: daily. [address] furosemide Yes [id number] 40mg Take 40 mg Univers (LASIX) 20 1-04 by mouth ity o f mg tablet 15:19: daily. [address] furosemide Yes [id number] 40mg Take 40 mg Univers (LASIX) 20 1-04 by mouth ity o f mg tablet 15:19: daily. [address] furosemide Yes [id number] 40mg Take 40 mg Univers (LASIX) 20 1-04 by mouth ity o f mg tablet 15:19: daily. [address] furosemide Yes [id number] 40mg Take 40 mg Univers (LASIX) 20 1-04 by mouth ity o f mg tablet 15:19: daily. [address] furosemide Yes [id number] 40mg Take 40 mg Univers (LASIX) 20 1-04 by mouth ity o f mg tablet 15:19: daily. [address] furosemide Yes [id number] 40mg Take 40 mg Univers (LASIX) 20 1-04 by mouth ity o f mg tablet 15:19: daily. [address] furosemide Yes [id number] 40mg Take 40 mg Univers (LASIX) 20 1-04 by mouth ity o f mg tablet 15:19: daily. [address] Golimumab Yes [id number] inject U nivers (SIMPONI) 1-04 under the ity o f 50 mg/0.5 15:18: skin. [place] mL 20 Infusion Medical injection every 8 Branch weeks for rheumatoid arthritis. Golimumab Yes [id number] inject U nivers (SIMPONI) 1-04 under the ity o f 50 mg/0.5 15:18: skin. [place] mL 20 Infusion Medical injection every 8 Branch weeks for rheumatoid arthritis. Golimumab Yes [id number] inject U nivers (SIMPONI) 1-04 under the ity o f 50 mg/0.5 15:18: skin. [place] mL 20 Infusion Medical injection every 8 Branch weeks for rheumatoid arthritis. Golimumab 2017 Yes [id number] inject U nivers (SIMPONI) 1-04 under the ity o f 50 mg/0.5 15:18: skin. [place] mL 20 Infusion Medical injection every 8 Branch weeks for rheumatoid arthritis. Golimumab Yes [id number] inject U nivers (SIMPONI) 1-04 under the ity o f 50 mg/0.5 15:18: skin. [place] mL 20 Infusion Medical injection every 8 Branch weeks for rheumatoid arthritis. Golimumab Yes [id number] inject U nivers (SIMPONI) 1-04 under the ity o f 50 mg/0.5 15:18: skin. [place] mL 20 Infusion Medical injection every 8 Branch weeks for rheumatoid arthritis. Golimumab Yes [id number] inject U nivers (SIMPONI) 1-04 under the ity o f 50 mg/0.5 15:18: skin. [place] mL 20 Infusion Medical injection every 8 Branch weeks for rheumatoid arthritis. Golimumab Yes [id number] inject U nivers (SIMPONI) 1-04 under the ity o f 50 mg/0.5 15:18: skin. [place] mL 20 Infusion Medical injection every 8 Branch weeks for rheumatoid arthritis. Golimumab Yes [id number] inject U nivers (SIMPONI) 1-04 under the ity o f 50 mg/0.5 15:18: skin. [place] mL 20 Infusion Medical injection every 8 Branch weeks for rheumatoid arthritis. Golimumab Yes [id number] inject U nivers (SIMPONI) 1-04 under the ity o f 50 mg/0.5 15:18: skin. [place] mL 20 Infusion Medical injection every 8 Branch weeks for rheumatoid arthritis. Golimumab Yes [id number] inject U nivers (SIMPONI) 1-04 under the ity o f 50 mg/0.5 15:18: skin. [place] mL 20 Infusion Medical injection every 8 Branch weeks for rheumatoid arthritis. apixaban Yes 5mg Take 5 mg Univ ers (ELIQUIS) -04 by mouth 2 ity of 2.5 mg [...] times Branch daily with meals. linagliptin Yes [id number] Take by Univers (TRADJENTA) 1-04 mouth. ity [...] 2 [place] tablet 03 (two) Medical times [place] daily with meals. linagliptin 2017-0 Yes [id number] Take by Univers (TRADJENTA) 1-04 mouth. ity [...] Branch daily with meals. linagliptin 2017-0 Yes [id number] Take by Univers (TRADJENTA) 1-04 mouth. ity [...] 2 [place] tablet 03 (two) Medical times [place] daily with meals. linagliptin Yes [id number] Take by Univers (TRADJENTA) 1-04 mouth. ity of 5 mg tablet 14:33: Medical Branch linagliptin Yes [id number] Take by Univers (TRADJENTA) 1-04 mouth. ity [...] times Branch daily with meals. linagliptin Yes [id number] Take by Univers (TRADJENTA) 1-04 mouth. ity [...] 2 [place] tablet 03 (two) Medical times [place] daily with meals. linagliptin 2017-0 Yes [id number] Take by Univers (TRADJENTA) 1-04 mouth. ity [...] 2 [place] tablet 03 (two) Medical times [place] daily with meals. hydralAZINE 2017-0 Yes 50mg [...] Branch daily with meals. linagliptin 2017-0 Yes [id number] Take by Univers (TRADJENTA) 1-04 mouth. ity [...] 2 [place] tablet 03 (two) Medical times [place] daily with meals. linagliptin 2017-0 Yes [id number] Take by Univers (TRADJENTA) 1-04 mouth. ity [...] Branch daily with meals. linagliptin 2017- Yes [id number] Take by Univers (TRADJENTA) 1-04 mouth. ity [...] Branch daily with meals. linagliptin 2017- Yes [id number] Take by Univers (TRADJENTA) 1-04 mouth. ity of 5 mg tablet 14:33: [place] 03 Medical Branch pramipexole Yes [id number] 2mg Take 2 Univers (MIRAPEX) 1 1-04 tablets by it y of mg tablet 00:00: [place] 00 bed[place]. [facility] Branch pramipexole Yes [id number] 2mg Take 2 Univers (MIRAPEX) 1 1-04 tablets by it y of mg tablet 00:00: [place] 00 bedtime. [facility] Branch pramipexole Yes [id number] 2mg Take 2 Univers (MIRAPEX) 1 1-04 tablets by it y of mg tablet 00:00: [place] 00 bedtime. Medical Branch pramipexole Yes [id number] 2mg Take 2 Univers (MIRAPEX) 1 1-04 tablets by it y of mg tablet 00:00: [place] 00 bedtime. Medical Branch pramipexole Yes [id number] 2mg Take 2 Univers (MIRAPEX) 1 1-04 tablets by it y of mg tablet 00:00: [place] 00 bed[place]. [facility] Branch pramipexole Yes [id number] 2mg Take 2 Univers (MIRAPEX) 1 1-04 tablets by it y of mg tablet 00:00: [place] 00 bed[place]. [facility] Branch pramipexole Yes [id number] 2mg Take 2 Univers (MIRAPEX) 1 1-04 tablets by [place] [facility] pramipexole Yes [id number] 2mg Take 2 [facility] (MIRAPEX) 1 1-04 tablets [place] [facility] pramipexole Yes [id number] 2mg Take 2 [facility] (MIRAPEX) 1 1-04 tablets [place] [facility] pramipexole Yes [id number] 2mg Take 2 [facility] (MIRAPEX) 1 1-04 tablets [place] [facility] pramipexole Yes [id number] 2mg Take 2 [facility] (MIRAPEX) 1 1-04 [...] Medical times Branch daily. glipiZIDE 2015-05 Yes [id number] 10mg Take 1 Un kevan XL 1-16 tablet by ity of (GLUCOTROL [place] 10 mg 00 (two) Medical 24 hr times Branch tablet daily. glipiZIDE 2015-05 Yes [id number] 10mg Take 1 [facility] ke[facility] XL 1-16 tablet by [facility]y of (GLUCOTROL [place] XL[place] 10 mg 00 (two) Medical 24 hr times Branch tablet daily. glipiZIDE 2015-05 Yes [id number] 10mg Take 1 [facility] [place] XL 1-16 tablet by [facility] [place] (GLUCOTROL [place] XL[place] 10 mg 00 (two) Medical 24 hr times Branch tablet daily. glipiZIDE 2015-05 Yes [id number] 10mg Take 1 [facility] [place] XL 1-16 tablet by [facility] [place] (GLUCOTROL 00:[place]: [place] XL[place] 10 mg 00 (two) Medical 24 hr times Branch tablet daily. glipiZIDE 2015-05 Yes [id number] 10mg Take 1 [facility] [place] XL 1-16 tablet by [facility] of (GLUCOTROL [place]: [place] XL[place] 10 mg 00 (two) Medical 24 hr times Branch tablet daily. glipiZIDE 2015-05 Yes [id number] 10mg Take 1 [place] XL 1-16 tablet by [facility] of (GLUCOTROL 00[place]: [place] XL[place] 10 mg 00 (two) Medical 24 hr times Branch tablet daily. glipiZIDE 2015-05 Yes [id number] 10mg Take 1 [facility] [place] XL 1-16 tablet by [facility] of (GLUCOTROL [place]: [place] XL[place] 10 mg 00 (two) Medical 24 hr times Branch tablet daily. glipiZIDE 2015-05 Yes [id number] 10mg Take 1 [facility] [place] XL 1-16 tablet by [facility]y of (GLUCOTROL 00:00: [place] XL[place] 10 mg 00 (two) Medical 24 hr times Branch tablet daily. glipiZIDE 2015-05 Yes [id number] 10mg Take 1 [facility] [place] XL 1-16 tablet by [facility] of (GLUCOTROL 00:[place]: [place] XL[place] 10 mg 00 (two) Medical 24 hr times Branch tablet daily. glipiZIDE 2015-05 Yes [id number] 10mg Take 1 [place] XL 1-16 tablet by [facility] of (GLUCOTROL 00:00: [place] XL[place] 10 mg 00 (two) Medical 24 hr times Branch tablet daily. glipiZIDE 2015-05 Yes [id number] 10mg Take 1 [facility] [place] XL 1-16 tablet by [facility] of (GLUCOTROL 00:00: [place] XL) 10 mg 00 (two) Medical 24 hr times Branch tablet daily. atorvastati 2015-05 Yes [id number] 10mg Take 1 [facility] n (LIPITOR) 1-02 tablet by ity of 10 mg 00:00: mouth at [place] tablet 00 bedtime. [facility] Branch atorvastati 2015-05 Yes [id number] 10mg Take 1 [facility] n (LIPITOR) 1-02 tablet by ity of 10 mg 00:00: mouth at [place] tablet 00 bedtime. Medical Branch atorvastati 2015-05 Yes [id number] 10mg Take 1 [facility] n (LIPITOR) 1-02 tablet by ity of 10 mg 00:00: mouth at [place] tablet 00 bedtime. [facility] Yes [id number] 10mg Take 1 [facility] n (LIPITOR) 1-02 tablet by ity of 10 mg 00:00: mouth at [place] tablet 00 bedtime. [facility]05 Yes [id number] 10mg Take 1 [facility] n (LIPITOR) 1-02 tablet by ity of 10 mg 00:00: mouth at [place] tablet 00 bedtime. [facility]05 Yes [id number] 10mg Take 1 [facility] n (LIPITOR) 1-02 tablet by ity of 10 mg 00:00: mouth at [place] tablet 00 bedtime. [facility]05 Yes [id number] 10mg Take 1 [facility] n (LIPITOR) 1-02 tablet by ity of 10 mg 00:00: mouth at [place] tablet 00 bedtime. [facility]05 Yes [id number] 10mg Take 1 [facility] n (LIPITOR) 1-02 tablet by ity of 10 mg 00:00: mouth at [place] tablet 00 bedtime. [facility]-05 Yes [id number] 10mg Take 1 [facility] n (LIPITOR) 1-02 tablet by ity of 10 mg 00:00: mouth at [place] tablet 00 bedtime. [facility]05 Yes [id number] 10mg Take 1 [facility] n (LIPITOR) 1-02 tablet by ity of 10 mg 00:00: mouth at [place] tablet 00 bedtime. [facility]05 Yes [id number] 10mg Take 1 [facility] n (LIPITOR) 1-02 tablet by ity of 10 mg 00:00: mouth at [place] tablet 00 bedtime. [facility] Branch Immunizations Ordered Immunization Filled Immunization Date Status Commen ts Source Name Name PFIZER COVID-19 MRNA 2021-06-10 Completed [facility] VACCINATION 00:00:00 [facility] PFIZER COVID-19 MRNA 2021-06-10 Completed [facility] odist VACCINATION 00:00:00 [facility] PFIZER COVID-19 MRNA 2021-06-10 Completed Meth odist VACCINATION 00:00:00 [facility] PFIZER COVID-19 MRNA 2021-06-10 Completed Meth odist VACCINATION 00:00:00 [facility] PFIZER COVID-19 MRNA 2021-06-10 Completed Meth odist VACCINATION 00:00:00 [facility] PFIZER COVID-19 MRNA 2021-06-10 Completed Meth odist VACCINATION 00:00:00 [facility] PFIZER COVID-19 MRNA 2021-06-10 Completed Meth odist VACCINATION 00:00:00 [facility] PFIZER COVID-19 MRNA 2021-06-10 Completed Meth odist VACCINATION 00:00:00 [facility] PFIZER COVID-19 MRNA 2021-06-10 Completed Meth odist VACCINATION 00:00:00 [facility] PFIZER COVID-19 MRNA 2021-06-10 Completed Meth odist VACCINATION 00:00:00 [facility] PFIZER COVID-19 MRNA 2020-07-09 Completed Meth odist VACCINATION 00:00:00 [facility] PFIZER COVID-19 MRNA 2020-07-09 Completed Meth odist VACCINATION 00:00:00 [facility] PFIZER COVID-19 MRNA 2020-07-09 Completed Meth odist VACCINATION 00:00:00 [facility] PFIZER COVID-19 MRNA 2020-07-09 Completed Meth odist VACCINATION 00:00:00 [facility] PFIZER COVID-19 MRNA 2020-07-09 Completed Meth odist VACCINATION 00:00:00 [facility] PFIZER COVID-19 MRNA 2020-07-09 Completed Meth odist VACCINATION 00:00:00 [facility] PFIZER COVID-19 MRNA 2020-07-09 Completed Meth odist VACCINATION 00:00:00 [facility] PFIZER COVID-19 MRNA 2020-07-09 Completed Meth odist VACCINATION 00:00:00 [facility] PFIZER COVID-19 MRNA 2020-07-09 Completed Meth odist VACCINATION 00:00:00 [facility] PFIZER COVID-19 MRNA 2020-07-09 Completed Meth odist VACCINATION 00:00:00 [facility] PFIZER COVID-19 MRNA 2020-06-18 Completed Meth odist VACCINATION 00:00:00 [facility] PFIZER COVID-19 MRNA 2020-06-18 Completed Meth odist VACCINATION 00:00:00 [facility] PFIZER COVID-19 MRNA 2020-06-18 Completed Meth odist VACCINATION 00:00:00 [facility] PFIZER COVID-19 MRNA 2020-06-18 Completed Meth odist VACCINATION 00:00:00 [facility] PFIZER COVID-19 MRNA 2020-06-18 Completed Meth odist VACCINATION 00:00:00 [facility] PFIZER COVID-19 MRNA 2020-06-18 Completed [facility] VACCINATION 00:00:00 Hospital PFIZER COVID-19 MRNA 2020-06-18 Completed [facility] VACCINATION 00:00:00 Hospital PFIZER COVID-19 MRNA 2020-06-18 Completed Meth odist VACCINATION 00:00:00 [facility] PFIZER COVID-19 MRNA 2020-06-18 Completed Meth odist VACCINATION 00:00:00 [facility] PFIZER COVID-19 MRNA 2020-06-18 Completed [facility] VACCINATION 00:00:00 Hospital Pneumococcal 2020-04-29 Completed [facility] Polysaccharide 00:[facility]:00 [facility] Zoster 2020-04-29 [facility]pleted [facility]00 [facility] Pneumococcal 2020-04-29 Completed [facility] Polysaccharide 00:00:00 [facility] Zoster 2020-04-29 Completed [facility] 00:[facility]:00 [facility] Pneumococcal 2020-04-29 Completed [facility] Polysaccharide 00:00:00 [facility] Zoster 2020-04-29 Completed [facility] 00:[facility]:00 [facility] Pneumococcal 2020-04-29 Completed [facility] Polysaccharide 00:00:00 [facility] Zoster 2020-04-29 Completed [facility] 00:[facility]:00 [facility] Pneumococcal 2020-04-29 Completed [facility] Polysaccharide 00:00:00 [facility] Zoster 2020-04-29 Completed [facility] 00:00:00 [facility] Pneumococcal 2020-04-29 Completed [facility] Polysaccharide 00:00:00 [facility] Zoster 2020-04-29 Completed [facility] 00:[facility]:00 [facility] Pneumococcal 2020-04-29 Completed [facility] Polysaccharide 00:00:00 [facility] Zoster 2020-04-29 Completed [facility] 00:00:00 [facility] Pneumococcal 2020-04-29 Completed [facility] Polysaccharide 00:00:00 [facility] Zoster 2020-04-29 Completed [facility] 00:[facility]:00 [facility] Pneumococcal 2020-04-29 Completed [facility] Polysaccharide 00:00:00 [facility] Zoster 2020-04-29 Completed [facility] 00:[facility]:00 [facility] Pneumococcal 2020-04-29 Completed [facility] Polysaccharide 00:00:00 [facility] Zoster 2020-04-29 Completed [facility] 00:[facility]:00 [facility] Pneumococcal 2019-05-13 Completed [facility] Conjugate 13-Valent 00:00:00 [facility] true Pneumococcal 2019-05-13 Completed [facility] Conjugate 13-Valent 00:00:00 [facility] true Pneumococcal 2019-05-13 Completed [facility] Conjugate 13-Valent 00:00:00 [facility] true Pneumococcal 2019-05-13 Completed [facility] Conjugate 13-Valent 00:00:00 [facility] true Pneumococcal 2019-05-13 Completed [facility] Conjugate 13-Valent 00:00:00 [facility] true Pneumococcal 2019-05-13 Completed [facility] Conjugate 13-Valent 00:00:00 [facility] true Pneumococcal 2019-05-13 Completed [facility] Conjugate 13-Valent 00:00:00 [facility] true Pneumococcal 2019-05-13 Completed [facility] Conjugate 13-Valent 00:00:00 [facility] true Pneumococcal 2019-05-13 Completed [facility] Conjugate 13-Valent 00:00:00 [facility] true Pneumococcal 2019-05-13 Completed [facility] Conjugate 13-Valent 00:00:00 [facility] true FLUCELVAX QUAD PF 2019-03-05 Completed Methodi [...] Metho dist 00:00:00 Hospital Influenza, 2016-02-03 Completed [facility] Unspecified 00:00:00 Hospital Pneumococcal 2016-02-03 Completed [facility] Conjugate 13-[facility]ent 00:00:00 [facility] true Tdap 2016-02-03 [facility]pleted [facility] 00:[facility]00 [facility] Influenza, 2016-02-03 Completed [facility] Unspecified 00:00:00 [facility] Pneumococcal 2016-02-03 Completed [facility] Conjugate 13-Valent 00:00:00 [facility] true Tdap 2016-02-03 [facility]pleted [facility] 00:[facility]00 [facility] Influenza, 2016-02-03 Completed [facility] Unspecified 00:00:00 Hospital Pneumococcal 2016-02-03 Completed [facility] Conjugate 13-Valent 00:00:00 [facility] true Tdap 2016-02-03 Completed [facility] 00:[facility]00 [facility] Influenza, 2016-02-03 Completed [facility] Unspecified 00:00:00 Hospital Pneumococcal 2016-02-03 Completed [facility] Conjugate 13-Valent 00:00:00 [facility] true Tdap 2016-02-03 Completed [facility] 00:[facility]00 [facility] Influenza, 2016-02-03 Completed [facility] Un[facility] 00:00:00 Hospital Pneumococcal 2016-02-03 Completed [facility] Conjugate 13-Valent 00:00:00 [facility] true Tdap 2016-02-03 [facility]pleted [facility] 00:[facility]00 [facility] Influenza, 2016-02-03 Completed [facility] Unspecified 00:00:00 Hospital Pneumococcal 2016-02-03 Completed [facility] Conjugate 13-Valent 00:00:00 [facility] true Tdap 2016-02-03 Completed [facility] 00:[facility]00 [facility] Influenza, 2016-02-03 Completed [facility] Unspecified 00:00:00 Hospital Pneumococcal 2016-02-03 Completed [facility] Conjugate 13-Valent 00:00:00 [facility] true Tdap 2016-02-03 Completed [facility] 00:[facility]00 [facility] Influenza, 2016-02-03 Completed [facility] Un[facility] 00:00:00 Hospital Pneumococcal 2016-02-03 Completed [facility] Conjugate 13-Valent 00:00:00 [facility] true Tdap 2016-02-03 Completed [facility] 00:[facility]:00 [facility] Influenza, 2016-02-03 Completed [facility] Unspecified 00:00:00 Hospital Pneumococcal 2016-02-03 Completed [facility] Conjugate 13-Valent 00:00:00 [facility] true Tdap 2016-02-03 Completed [facility] 00:[facility]00 [facility] Influenza, 2016-02-03 Completed [facility] Unspecified 00:00:00 Hospital Pneumococcal 2016-02-03 Completed [facility] Conjugate 13-Valent 00:00:00 Hosp true Tdap 2016-02-03 Completed [facility]00 [facility] Influenza Virus 2016-02-03 Completed [facility]it y of Vaccine 00:00:00 [facility] Pneumococcal 13 2016-02-03 Completed Universit y of Conjugate, PCV13 00:00:00 [place] [facility] (Prevnar 13) Branch TDAP 2016-02-03 Completed [facility] of 00:00:00 [facility] Influenza Virus 2016-02-03 Completed Universit y of Vaccine 00:00:00 [facility] Pneumococcal 13 2016-02-03 Completed Universit y of Conjugate, PCV13 00:00:00 [place] [facility] (Prevnar 13) Branch AP 2016-02-03 Completed [facility] of 00:00:00 [facility] Influenza Virus 2016-02-03 Completed Universit y of Vaccine 00:00:00 [facility] Pneumococcal 13 2016-02-03 Completed Universit y of Conjugate, PCV13 00:00:00 [facility] dical (Prevnar 13) Branch [facility] 2016-02-03 Completed University of 00:00:00 [facility] Influenza Virus 2016-02-03 Completed Universit y of Vaccine 00:00:00 [facility] Pneumococcal 13 2016-02-03 Completed Universit y of Conjugate, PCV13 00:00:00 [facility] dical (Prevnar 13) Branch [facility] 2016-02-03 Completed University of 00:00:00 [facility] Influenza Virus 2016-02-03 Completed Universit y of Vaccine 00:00:00 [facility] Pneumococcal 13 2016-02-03 Completed Universit y of Conjugate, PCV13 00:00:00 [facility] dical (Prevnar 13) Branch [facility] 2016-02-03 Completed University of 00:00:00 [facility] Influenza Virus 2016-02-03 Completed Universit y of Vaccine 00:00:00 [facility] Pneumococcal 13 2016-02-03 Completed Universit y of Conjugate, PCV13 00:00:00 [facility] dical (Prevnar 13) Branch [facility] 2016-02-03 Completed University of 00:00:00 [facility] Influenza Virus 2016-02-03 Completed Universit y of Vaccine 00:00:00 [facility] Pneumococcal 13 2016-02-03 Completed Universit y of Conjugate, PCV13 00:00:00 [facility] dical (Prevnar 13) Branch [facility] 2016-02-03 Completed University of 00:00:00 [facility] Influenza Virus 2016-02-03 Completed Universit y of Vaccine 00:00:00 [facility] Pneumococcal 13 2016-02-03 Completed Universit y of Conjugate, PCV13 00:00:00 [facility] dical (Prevnar 13) Branch [facility] 2016-02-03 Completed University of 00:00:00 [facility] Influenza Virus 2016-02-03 Completed Universit y of Vaccine 00:00:00 [facility] Pneumococcal 13 2016-02-03 Completed Universit y of Conjugate, PCV13 00:00:00 [facility] dical (Prevnar 13) Branch [facility] 2016-02-03 Completed University of 00:00:00 [facility] Influenza Virus 2016-02-03 Completed Universit y of Vaccine 00:00:00 [facility] Pneumococcal 13 2016-02-03 Completed Universit y of Conjugate, PCV13 00:00:00 [facility] dical (Prevnar 13) Branch TDAP 2016-02-03 Completed University of 00:00:00 [facility] Influenza Virus 2016-02-03 Completed Universit y of Vaccine 00:00:00 [facility] Pneumococcal 13 2016-02-03 Completed Universit y of Conjugate, PCV13 00:00:00 [facility] dical (Prevnar 13) Branch TDAP 2016-02-03 Completed University of 00:00:00 [facility] Influenza, 2015-01-05 Completed [facility]00 [facility] Pneumococcal 2015-01-05 Completed [facility] Conjugate 13-Valent 00:00:00 [facility] true Td 2015-01-05 Completed [facility] 00:[facility]:00 [facility] Influenza, 2015-01-05 Completed [facility] 00:00:00 [facility] Pneumococcal 2015-01-05 Completed [facility] Conjugate 13-Valent 00:00:00 [facility] true Td 2015-01-05 Completed [facility] 00:[facility]:00 [facility] Influenza, 2015-01-05 Completed [facility] 00:00:00 [facility] Pneumococcal 2015-01-05 Completed [facility] Conjugate 13-Valent 00:00:00 [facility] true Td 2015-01-05 Completed [facility] 00:[facility]:00 [facility] Influenza, 2015-01-05 Completed [facility] 00:00:00 [facility] Pneumococcal 2015-01-05 Completed [facility] Conjugate 13-Valent 00:00:00 [facility] true Td 2015-01-05 Completed [facility] 00:[facility]:00 [facility] Influenza, 2015-01-05 Completed [facility] 00:00:00 [facility] Pneumococcal 2015-01-05 Completed [facility] Conjugate 13-Valent 00:00:00 [facility] true Td 2015-01-05 Completed [facility] 00:[facility]:00 [facility] Influenza, 2015-01-05 Completed [facility] 00:00:00 [facility] Pneumococcal 2015-01-05 Completed [facility] Conjugate 13-Valent 00:00:00 [facility] true Td 2015-01-05 Completed [facility] 00:[facility]:00 [facility] Influenza, 2015-01-05 Completed [facility] 00:00:00 [facility] Pneumococcal 2015-01-05 Completed [facility] Conjugate 13-Valent 00:00:00 [facility] true Td 2015-01-05 Completed [facility] 00:[facility]:00 [facility] Influenza, 2015-01-05 Completed [facility] 00:00:00 [facility] Pneumococcal 2015-01-05 Completed [facility] Conjugate 13-Valent 00:00:00 [facility] true Td 2015-01-05 Completed [facility] 00:[facility]:00 [facility] Influenza, 2015-01-05 Completed [facility] Un[facility] 00:00:00 Hospital Pneumococcal 2015-01-05 Completed [facility] Conjugate 13-Valent 00:00:00 [facility] true Td 2015-01-05 Completed [facility] 00:[facility]:00 [facility] Influenza, 2015-01-05 Completed [facility] Un[facility] 00:00:00 Hospital Pneumococcal 2015-01-05 Completed [facility] Conjugate 13-Valent 00:00:00 Hospi true Td 2015-01-05 Completed [facility] 00:00:00 [facility] Influenza Virus 2015-01-05 Completed Universit y of Vaccine 00:00:00 [facility] Pneumococcal 13 2015-01-05 Completed Universit y of Conjugate, PCV13 00:00:00 [place] [facility] (Prevnar 13) Branch Tetanus/Diptheria 2015-01-05 Completed Univers ity of 00:00:00 [facility] Influenza Virus 2015-01-05 Completed Universit y of Vaccine 00:00:00 [facility] Pneumococcal 13 2015-01-05 Completed Universit y of Conjugate, PCV13 00:00:00 [place] [facility] (Prevnar 13) Branch Tetanus/Diptheria 2015-01-05 Completed Univers ity of 00:00:00 [facility] Influenza Virus 2015-01-05 Completed Universit y of Vaccine 00:00:00 [facility] Pneumococcal 13 2015-01-05 Completed Universit y of Conjugate, PCV13 00:00:00 [place] [facility] (Prevnar 13) Branch Tetanus/Diptheria 2015-01-05 Completed Univers ity of 00:00:00 [facility] Influenza Virus 2015-01-05 Completed Universit y of Vaccine 00:00:00 [facility] Pneumococcal 13 2015-01-05 Completed Universit y of Conjugate, PCV13 00:00:00 [place] [facility] (Prevnar 13) Branch Tetanus/Diptheria 2015-01-05 Completed Univers ity of 00:00:00 [facility] Influenza Virus 2015-01-05 Completed Universit y of Vaccine 00:00:00 [facility] Pneumococcal 13 2015-01-05 Completed Universit y of Conjugate, PCV13 00:00:00 [facility] dical (Prevnar 13) Branch Tetanus/Diptheria 2015-01-05 Completed Univers ity of 00:00:00 [facility] Influenza Virus 2015-01-05 Completed Universit y of Vaccine 00:00:00 [facility] Pneumococcal 13 2015-01-05 Completed Universit y of Conjugate, PCV13 00:00:00 [facility] dical (Prevnar 13) Branch Tetanus/Diptheria 2015-01-05 Completed Univers ity of 00:00:00 [facility] Influenza Virus 2015-01-05 Completed Universit y of Vaccine 00:00:00 [facility] Pneumococcal 13 2015-01-05 Completed Universit y of Conjugate, PCV13 00:00:00 [facility] dical (Prevnar 13) Branch Tetanus/Diptheria 2015-01-05 Completed Univers ity of 00:00:00 [facility] Influenza Virus 2015-01-05 Completed Universit y of Vaccine 00:00:00 [facility] Pneumococcal 13 2015-01-05 Completed Universit y of Conjugate, PCV13 00:00:00 [facility] dical (Prevnar 13) Branch Tetanus/Diptheria 2015-01-05 Completed Univers ity of 00:00:00 [facility] Influenza Virus 2015-01-05 Completed Universit y of Vaccine 00:00:00 [facility] Pneumococcal 13 2015-01-05 Completed Universit y of Conjugate, PCV13 00:00:00 [facility] dical (Prevnar 13) Branch Tetanus/Diptheria 2015-01-05 Completed Univers ity of 00:00:00 [facility] Influenza Virus 2015-01-05 Completed Universit y of Vaccine 00:00:00 [facility] Pneumococcal 13 2015-01-05 Completed Universit y of Conjugate, PCV13 00:00:00 [facility] dical (Prevnar 13) Branch Tetanus/Diptheria 2015-01-05 Completed Univers ity of 00:00:00 [facility] Influenza Virus 2015-01-05 Completed Universit y of Vaccine 00:00:00 [facility] Pneumococcal 13 2015-01-05 Completed Universit y of Conjugate, PCV13 00:00:00 [facility] dical (Prevnar 13) Branch Tetanus/Diptheria 2015-01-05 Completed Univers ity of 00:00:00 [facility] Pneumococcal 2013-05-21 Completed [facility] Conjugate 00:00:00 [facility] Tdap 2013-05-21 Completed [facility] 00:00:00 [facility] Pneumococcal 2013-05-21 Completed [facility] Conjugate 00:00:00 Hospital Tdap 2013-05-21 Completed [facility] 00:00:00 [facility] Pneumococcal 2013-05-21 Completed [facility] Conjugate 00:00:00 Hospital Tdap 2013-05-21 Completed [facility] 00:[facility]:00 [facility] Pneumococcal 2013-05-21 Completed [facility] Conjugate 00:00:00 Hospital Tdap 2013-05-21 Completed [facility] 00:[facility]:00 [facility] Pneumococcal 2013-05-21 Completed [facility] Conjugate 00:00:00 [facility] Tdap 2013-05-21 Completed [facility] 00:[facility]:00 [facility] Pneumococcal 2013-05-21 Completed [facility] Conjugate 00:00:00 [facility] Tdap 2013-05-21 Completed [facility] 00:[facility]:00 [facility] Pneumococcal 2013-05-21 Completed [facility] Conjugate 00:00:00 [facility] Tdap 2013-05-21 Completed [facility] 00:00:00 [facility] Pneumococcal 2013-05-21 Completed [facility] Conjugate 00:00:00 [facility] Tdap 2013-05-21 Completed [facility] 00:00:00 [facility] Pneumococcal 2013-05-21 Completed [facility] Conjugate 00:00:00 [facility] Tdap 2013-05-21 Completed [facility] 00:00:00 [facility] Pneumococcal 2013-05-21 Completed [facility] Conjugate 00:00:00 [facility] Tdap 2013-05-21 Completed [facility] 00:[facility]:00 [facility] H1N1 All Forms 2009-04-20 Completed [facility] 00:00:00 [facility] H1N1 All Forms 2009-04-20 Completed [facility] 00:[facility]:00 [facility] H1N1 All Forms 2009-04-20 Completed [facility] 00:[facility]:00 [facility] H1N1 All Forms 2009-04-20 Completed [facility] 00:[facility]:00 [facility] H1N1 All Forms 2009-04-20 Completed [facility] 00:[facility]:00 [facility] H1N1 All Forms 2009-04-20 Completed [facility] 00:00:00 [facility] H1N1 All Forms 2009-04-20 Completed [facility] 00:[facility]:00 [facility] H1N1 All Forms 2009-04-20 Completed [facility] 00:[facility]:00 [facility] H1N1 All Forms 2009-04-20 Completed [facility] 00:00:00 [facility] H1N1 All Forms 2009-04-20 Completed [facility] 00:[facility]:00 Hospital Vital Signs Vital Name Observation Time Observation Value Comments Source HEIGHT 2022-01-14 10:00:00 162.6 cm WEIGHT 2022-01-14 10:00:00 68.04 kg HEIGHT 2022-01-14 10:00:00 162.6 cm WEIGHT 2022-01-14 10:00:00 68.04 kg Systolic blood 2022-01-18 12:00:00 117 mm[Hg] [facility] Diastolic blood 2022-01-18 12:00:00 51 mm[Hg] [facility] Heart rate 2022-01-18 12:00:00 80 /min [facility] Body temperature 2022-01-18 12:00:00 36.78 [facility] Respiratory rate 2022-01-18 12:00:00 18 /min [facility] Oxygen saturation in 2022-01-18 12:00:00 100 /min [facility] Arterial blood by Medical Ce nter Pulse oximetry Body height 2022-01-14 10:00:00 162.6 cm [facility] Body weight 2022-01-14 10:00:00 68.04 kg [facility] BMI 2022-01-14 10:00:00 25.75 kg/m2 [facility] Systolic blood 2021-09-16 23:24:00 145 mm[Hg] [facility] pressure Diastolic blood 2021-09-16 23:24:00 78 mm[Hg] [facility] pressure Heart rate 2021-09-16 23:00:00 80 /min [facility] Respiratory rate 2021-09-16 23:00:00 19 /min [facility] Body temperature 2021-09-16 19:25:00 36.28 [facility] Oxygen saturation in 2021-09-16 15:57:32 98 /min [facility] Arterial blood by Pulse oximetry Body height 2021-09-07 12:58:00 162.6 cm [facility] Body weight 2021-09-07 12:58:00 67.3 kg [facility] BMI 2021-09-07 12:58:00 25.47 kg/m2 [facility] Procedures Procedure Date / Time Performing Source Performed Clinician [id number] 2022-10-11 [facility] 00:00:00 Rehabilitation [place] EXTERNAL PROVIDER RECORDS 2022-07-05 Doctor [facility] 06:01:00 Unassigned, No Medical Branch Name EXTERNAL PROVIDER RECORDS 2022-04-01 Doctor Aruna corral [facility] 06:01:00 Unassigned, No Medical Branch Name POCT-GLUCOSE METER 2022-01-18 Annalee Bey [facility] 12:10:00 Center HEMODIALYSIS INPATIENT 2022-01-18 Miles Quinones [facility] 07:52:23 [facility] BASIC METABOLIC PANEL 2022-01-18 Reji, [facility] 06:09:00 Center POCT-GLUCOSE METER 2022-01-17 Reji, [facility] [address] 19:46:00 Center POCT-GLUCOSE METER 2022-01-17 Reji, [facility] [address] 17:06:00 Center POCT-GLUCOSE METER 2022-01-17 Reji, [facility] [address] 12:13:00 Center POCT-GLUCOSE METER 2022-01-17 Reji, [facility] [address] 08:29:00 Center BASIC METABOLIC PANEL 2022-01-17 [facility], [facility] 03:23:00 Center POCT-GLUCOSE METER 2022-01-16 Reji, [facility] [address] 20:16:00 Center POCT-GLUCOSE METER 2022-01-16 Reji, [facility] [address] 15:46:00 Center POCT-GLUCOSE METER 2022-01-16 Reji, [facility] [address] 11:46:00 Center POCT-GLUCOSE METER 2022-01-16 Reji, [facility] [address] 07:47:00 Center POCT-GLUCOSE METER 2022-01-15 [facility], [facility] [address] 20:13:00 Center POCT-GLUCOSE METER 2022-01-15 Reji, [facility] [address] 17:54:00 Center POCT-GLUCOSE METER 2022-01-15 [facility], [facility] [address] 12:31:00 Center HEMODIALYSIS INPATIENT 2022-01-15 Rufina Owen [facility] 10:06:42 Aguila Jacob Center POCT-GLUCOSE METER 2022-01-15 Reji, [facility] [address] 07:32:00 Center BASIC METABOLIC PANEL 2022-01-15 [facility] 03:58:00 [place] POCT-GLUCOSE METER 2022-01-14 [facility] 20:42:00 [place] POCT-GLUCOSE METER 2022-01-14 [facility] 15:38:00 [place] SARS-COV2/RT-PCR (SLHS & REF 2022-01-14 [facility] LABS) 14:57:00 [place] XR CHEST 1 VIEW PORTABLE / 2022-01-14 [facility] BEDSIDE 14:38:00 [place] POCT-GLUCOSE METER 2022-01-14 [facility] 12:02:00 [place] IR CENTRAL VENOUS CATHETER 2022-01-14 [facility] PLACEMENT (JUGULAR OR FEMORAL) 11:14:00 [facility] POCT-GLUCOSE METER 2022-01-14 [facility] 08:24:00 [place] CBC (HEMOGRAM ONLY) 2022-01-14 [facility] 04:11:00 [place] BASIC METABOLIC PANEL 2022-01-14 [facility] 04:11:00 [place] POCT-GLUCOSE METER 2022-01-13 [facility] 19:39:00 [place] POCT-GLUCOSE METER 2022-01-13 [facility] 16:37:00 [place] POCT-GLUCOSE METER 2022-01-13 [facility] 13:51:00 [place] BLOOD GAS, ARTERIAL 2022-01-13 [facility] 08:41:00 [place] POCT-GLUCOSE METER 2022-01-13 [facility] 08:25:[address] [place] [address] BRAIN WITHOUT IV CONTRAST 2022-01-13 [facility] 07:50:00 [place] COMPREHENSIVE METABOLIC PANEL 2022-01-13 [facility] 07:29:00 [place] TROPONIN I 2022-01-13 [facility] ical 07:29:00 [place] TSH/FREE T4 IF INDICATED 2022-01-13 [facility], [facility] [address] 07:29:00 [place] CBC W/PLT COUNT & AUTO 2022-01-13 [facility], [facility] DIFFERENTIAL 07:29:00 [place] CBC W/PLT COUNT & AUTO 2022-01-13 [facility], [facility] DIFFERENTIAL 07:29:00 [place] POCT-GLUCOSE METER 2022-01-13 [facility], [facility] [address] 07:04:00 [place] POCT-GLUCOSE METER 2022-01-13 [facility], [facility] [address] 06:21:00 [place] POCT-GLUCOSE METER 2022-01-12 [facility], [facility] [address] 20:53:00 [place] POCT-GLUCOSE METER 2022-01-12 [facility], [facility] [address] 19:20:00 [place] POCT-GLUCOSE METER 2022-01-12 [facility], [facility] [address] 18:50:00 [place] POCT-GLUCOSE METER 2022-01-12 [facility], [facility] [address] 17:58:00 [place] IR TUNNELED CATHETER INSERTION 2022-01-12 LexieRufina alvarez [facility] 16:30:00 [facility] POCT-[facility]SE METER 2022-01-12 [facility], [facility] [address] 12:08:00 [place] POCT-GLUCOSE METER 2022-01-12 [facility] 08:49:00 [place] CBC W/PLT COUNT & AUTO 2022-01-12 [facility] 05:39:00 [place] BASIC METABOLIC PANEL 2022-01-12 [facility] 05:39:00 [place] MAGNESIUM 2022-01-12 [facility] siddiqui [facility] 05:39:00 [place] PHOSPHORUS 2022-01-12 [facility] 05:39:00 [place] PROTHROMBIN TIME/INR 2022-01-12 [facility] 05:39:00 [place] APTT 2022-01-12 [facility] 05:39:00 [place] CBC W/PLT COUNT & AUTO 2022-01-12 [facility], Annalee Montoya [facility] DIFFER[facility] 05:39:00 [place] (MANUAL DIFFERENTIAL) 2022-01-12 [facility], Annalee Jan [facility] 05:39:00 [place] POCT-GLUCOSE METER 2022-01-11 [facility], Annale[place] Jan [facility] 19:49:00 [place] POCT-GLUCOSE METER 2022-01-11 [facility], Ann[place] Jan [facility] 17:57:00 [place] POCT-GLUCOSE METER 2022-01-11 [facility], Annalee Jan [facility] 12:37:00 [place] HEMODIALYSIS INPATIENT 2022-01-11 Lexie, Ameliadora [facility] 12:29:37 Aguila Cecil [place] POCT-GLUCOSE METER 2022-01-11 [facility], Annalee Jan [facility] 07:49:00 [place] POCT-GLUCOSE METER 2022-01-10 [facility], Annale[place] Jan [facility] 21:16:00 [place] POCT-GLUCOSE METER 2022-01-10 [facility], [place] Jan [facility] 15:24:00 [place] IR TUNNEL CATHETER EXCHANGE 2022-01-10 Natacha Schulz [facility] 11:23:00 TaFormerly [facility] POCT-GLUCOSE METER 2022-01-10 [facility], [place] Jan [facility] 11:21:00 [place] CBC W/PLT COUNT & AUTO 2022-01-10 [facility], Annalee Montoya [facility] DIFFER[facility] 04:13:00 [place] BASIC METABOLIC PANEL 2022-01-10 [facility], Annalee Montoya [facility] 04:13:00 [place] MAGNESIUM 2022-01-10 [facility], Annale[place] Jan [facility] 04:13:00 [place] PHOSPHORUS 2022-01-10 [facility], [place] Jan [facility] 04:13:00 [place] APTT 2022-01-10 Joanna Owens [facility] Med ical 04:13:00 [place] CBC W/PLT COUNT & AUTO 2022-01-10 [facility], Annalee Montoya [facility] DI[facility] 04:13:00 [place] POCT-GLUCOSE METER 2022-01-09 Shieh, Annalee Jan [facility] 21:15:00 Center APTT 2022-01-09 Shieh, [place] Jan [facility] 19:08:00 Center POCT-GLUCOSE METER 2022-01-09 Shieh, Annalee Montoya [facility] 17:02:00 Center POCT-GLUCOSE METER 2022-01-09 Shieh, [place]e Jan [facility] 11:22:00 Center APTT 2022-01-09 Shieh, Annalee Montoya [facility] 09:44:00 Center POCT-GLUCOSE METER 2022-01-09 Shieh, Annalee Montoya [facility] 07:19:00 Center POCT-GLUCOSE METER 2022-01-09 Shieh, Annalee Jan [facility] 05:05:00 Center CBC W/PLT COUNT & AUTO 2022-01-09 Shieh, Ann[place]e Jan [facility] DIFFER[facility] 04:57:00 [place] BASIC METABOLIC PANEL 2022-01-09 Shieh, Annalee Jan [facility] 04:57:00 Center MAGNESIUM 2022-01-09 Shieh, [place] Jan [facility] 04:57:00 Center PHOSPHORUS 2022-01-09 Shieh, Annalee Montoya [facility] 04:57:00 [place] CBC W/PLT COUNT & AUTO 2022-01-09 Shieh, [place] Jan [facility] DI[facility] 04:57:00 Center APTT 2022-01-09 Shieh, [place] [facility] 00:34:00 [place] POCT-GLUCOSE METER 2022-01-08 Shieh, Annalee Jan [facility] 16:49:00 Center APTT 2022-01-08 Shieh, Annalee Jan [facility] 16:13:00 [place] HEMODIALYSIS INPATIENT 2022-01-08 Lexie, [facility] 15:47:52 [facility] HEPATITIS B SURFACE ANTIGEN 2022-01-08 Lexie, [facility] 15:40:00 [facility] HEPATITIS B SURFACE ANTIBODY 2022-01-08 Lexie, [facility] 15:40:00 [facility] POCT-GLUCOSE METER 2022-01-08 [facility] 12:18:00 [place] POCT-GLUCOSE METER 2022-01-08 [facility] 07:59:00 [place] CBC W/PLT COUNT & AUTO 2022-01-08 [facility] 05:27:00 [place] BASIC METABOLIC PANEL 2022-01-08 [facility], Annalee Montoya [facility] 05:27:00 [place] MAGNESIUM 2022-01-08 [facility], Annalee Montoya [facility] 05:27:00 [place] PHOSPHORUS 2022-01-08 [facility], Annalee Montoya [facility] 05:27:00 [place] HEMOGLOBIN A1C 2022-01-08 [facility], Annalee Montoya [facility] 05:27:00 [place] CBC W/PLT COUNT & AUTO 2022-01-08 [facility] Annalee Montoya [facility] DIFFER[facility] 05:27:00 [place] APTT 2022-01-08 Joanna Owens [facility] 05:26:00 [place] POCT-GLUCOSE METER 2022-01-07 [facility] Annalee Jan [facility] 21:01:00 [place] APTT 2022-01-[address] [facility] [facility] 21:00:00 [place] CARDIAC CATH REPORT - SCAN 2022-01-07 Provider, [facility] 00:00:00 Default Scanning [place] EKG-SCANNED 2022-01-07 Provider, [facility] 00:00:00 Default Scanning [place] HEMODIALYSIS 2021-09-16 [facility] 20:36:27 Alexandru Das POC GLUCOSE 2021-09-16 [facility] 15:59:00 POC GLUCOSE 2021-09-16 [facility] 11:10:00 POC GLUCOSE 2021-09-16 Corrine [facility]una Hospit al 01:24:00 POC GLUCOSE 2021-09-15 [facility] 20:54:00 POC GLUCOSE 2021-09-15 Al-Lahiq, [facility] 16:27:00 POC GLUCOSE 2021-09-15 [facility] 12:04:00 POC GLUCOSE 2021-09-15 Al-Lahiq, [facility] 11:16:00 POC GLUCOSE 2021-09-15 Al-Lahiq, [facility] 01:21:00 POC GLUCOSE 2021-09-14 Al-Lahiq, [facility] 21:57:00 POC GLUCOSE 2021-09-14 Al-Lahiq, [facility] 17:17:00 IR TUNNELED DIALYSIS CATHETER 2021-09-14 [facility] REPLACEMENT/EXCHANGE 13:59:03 Oliver-Eloy HEMODIALYSIS 2021-09-14 [facility] 12:42:40 Alexandru Das POC GLUCOSE 2021-09-14 Al-Lahiq, [facility] Hospit al 11:19:00 BASIC METABOLIC PANEL 2021-09-14 [facility] 09:34:00 Alexandru Das ESTIMATED GFR 2021-09-14 [facility] 09:34:00 Alexandru PaceZCOVID-19 ANTI-SPIKE IGG 2021-09-14 [facility] ANTIBODY TITER 03:25:00 Poornima TYPE AND SCREEN 2021-09-14 [facility] al 03:25:00 Poornima PaceZCOVID-19 SEROLOGY PATIENT 2021-09-14 [facility] SURVEILLANCE 03:25:00 Oliver-Eloy POC GLUCOSE 2021-09-14 Al-Lahiq, [facility] Hospit al 01:33:00 POC GLUCOSE 2021-09-13 Al-Lahiq, [facility] Hospit al 23:43:00 SURGICAL PATHOLOGY REQUEST 2021-09-13 AlKaitlyn, [facility] 20:11:00 ESOPHAGOGASTRODUODENOSCOPY (EGD) 2021-09-13 [facility] 19:58:00 Claudio Ongeri POC GLUCOSE 2021-09-13 Al-Lahiq, [facility] 17:23:00 POC GLUCOSE 2021-09-13 Al-Lahiq, [facility] 11:26:00 BASIC METABOLIC PANEL 2021-09-13 [facility] 10:25:00 Alexandru Das CBC WITH PLATELET AND 2021-09-13 [facility] DIFFERENTIAL 10:25:00 PARTIAL THROMBOPLASTIN TIME (PTT) 2021-09-13 [facility], [facility] 10:25:00 ESTIMATED GFR 2021-09-13 [facility] 10:25:00 Alexandru Das PROTHROMBIN TIME WITH INR 2021-09-13 Al-Lahi, [facility] 10:25:00 POC GLUCOSE 2021-09-13 Al-Lahiq, [facility] 00:48:00 ECG 12-LEAD 2021-09-12 [facility] 23:22:14 Claudio Ongeri POC GLUCOSE 2021-09-12 Al-Lahiq, [facility] 22:53:00 POC GLUCOSE 2021-09-12 Al-Lahiq, [facility] 21:49:00 POC GLUCOSE 2021-09-12 Al-Lahiq, [facility] 16:57:00 POC GLUCOSE 2021-09-12 Al-Lahiq, [facility] 11:26:00 POC GLUCOSE 2021-09-12 Al-Lahiq, [facility] 11:01:00 BASIC METABOLIC PANEL 2021-09-12 [facility] 09:15:00 Alexandru Nilorao ESTIMATED GFR 2021-09-12 [facility] 09:15:00 Alexandru Laxmanrao HEMODIALYSIS 2021-09-12 [facility] 02:06:24 Alexandru Laxmanrao POC GLUCOSE 2021-09-12 Al-Lahiq, [facility] 01:05:00 POC GLUCOSE 2021-09-11 Al-Lahiq, [facility] 21:53:00 POC GLUCOSE 2021-09-11 Al-Lahiq, [facility] Hospit al 16:41:00 HEMODIALYSIS 2021-09-11 [facility] 15:53:24 Alexandrura Corcoranrao POC GLUCOSE 2021-09-11 Al-Laiaq, [facility] Hospit al 11:14:00 ZZCOVID-19 ANTI-SPIKE IGG 2021-09-11 [facility], [facility] ANTIBODY TITER 09:40:00 BASIC METABOLIC PANEL 2021-09-11 [facility] 09:40:00 Alexandrulake Suo HEMOGLOBIN A1C 2021-09-11 Al-Laiaq, [facility] Hospit al 09:40:00 ZZCOVID-19 SEROLOGY PATIENT 2021-09-11 [facility], [facility] SURVEILLANCE 09:40:00 CBC WITH PLATELET AND 2021-09-11 [facility] DIFFERENTIAL 09:40:00 ESTIMATED GFR 2021-09-11 [facility] 09:40:00 Alexandru Suo POC GLUCOSE 2021-09-11 Al-Lahiq, [facility] Hospit al 00:39:00 POC GLUCOSE 2021-09-10 Al-Lahiq, [facility] Hospit al 21:14:00 CORTISOL LEVEL, AM 2021-09-10 Al-Laiaq, [facility] 16:58:00 POC GLUCOSE 2021-09-10 Al-Lahiq, [facility] 15:59:00 POC GLUCOSE 2021-09-10 Al-Lahiq, [facility] Hospit al 11:26:00 BASIC METABOLIC PANEL 2021-09-10 [facility] 09:55:00 Alexandru Nilorao ESTIMATED GFR 2021-09-10 [facility] 09:55:00 Alexandru Laxmanrao POC GLUCOSE 2021-09-10 Al-Lahiq, [facility] Hospit al 00:18:00 POC GLUCOSE 2021-09-09 Al-Lahiq, [facility] Hospit al 21:28:00 POC GLUCOSE 2021-09-09 Al-Lahiq, [facility] Hospit al 16:28:00 CT HEAD WO CONTRAST 2021-09-09 Al-Lahiq, [facility] Ho spital 14:48:37 HEMODIALYSIS 2021-09-09 [facility] 14:08:47 Alexandru Laxmanrao POC GLUCOSE 2021-09-09 Al-Lahiq, [facility] Hospit al 11:30:00 BASIC METABOLIC PANEL 2021-09-09 [facility] 10:45:00 Alexandru Thiago ESTIMATED GFR 2021-09-09 [facility] 10:45:00 Alexandru Nilorao POC GLUCOSE 2021-09-09 Al-Lahiq, [facility] Hospit al 01:10:00 POC GLUCOSE 2021-09-08 Al-Lahiq, [facility] Hospit al 21:16:00 POC GLUCOSE 2021-09-08 Al-Lahiq, [facility] Hospit al 16:10:00 BASIC METABOLIC PANEL 2021-09-08 [facility] 09:27:00 MAGNESIUM LEVEL 2021-09-08 [facility] Hospit al 09:27:00 ESTIMATED GFR 2021-09-08 [facility] Hospit al 09:27:00 GASTROINTESTINAL PATHOGENS PANEL, 2021-09-08 Kimmy Cronin [facility] PCR 02:15:00 POC GLUCOSE 2021-09-08 Al-Lahiq, [facility] Hospit al 01:30:00 BASIC METABOLIC PANEL 2021-09-07 [facility] 18:00:00 ESTIMATED GFR 2021-09-07 Al-Lahiq, [facility] Hospit al 18:00:00 HEPATITIS B SURFACE ANTIGEN 2021-09-07 [facility] 18:00:00 Alexandru Das HEPATITIS B SURFACE AB, 2021-09-07 [facility] QUANTITATIVE 18:00:00 Alexandru Das XR CHEST 1 VW PORTABLE 2021-09-07 [facility], [facility] 16:47:43 XR ABDOMEN 1 VW 2021-09-07 [facility], [facility] Hospit al 16:47:22 HEMODIALYSIS 2021-09-07 [facility] Fraser [facility] 16:16:15 POC GLUCOSE 2021-09-07 [facility], [facility] Hospit al 11:07:00 TROPONIN T 2021-09-07 Trinidad Menard [facility] 03:35:00 Libia TROPONIN T 2021-09-07 [facility] 00:[facility]00 RESPIRATORY PATHOGEN PANEL WITH 2021-09-06 [facility] COVID-19 RT-PCR 23:59:00 CT ABDOMEN PELVIS WO CONTRAST 2021-09-06 [facility] 22:16:48 ECG ED PRELIMINARY INTERPRETATION 2021-09-06 [facility] 21:23:51 ECG 12-LEAD 2021-09-06 [facility] 20:48:53 CBC WITH PLATELET AND 2021-09-06 [facility] DIFFERENTIAL 20:09:00 COMPREHENSIVE METABOLIC PANEL 2021-09-06 [facility] 20:09:00 ESTIMATED GFR 2021-09-06 [facility] 20:09:00 MAGNESIUM LEVEL 2021-09-06 [facility]ad [facility] 20:09:00 TROPONIN T 2021-09-06 [facility] 20:09:00 PHOSPHORUS LEVEL 2021-09-06 [facility]ad [facility] true 20:09:00 POC GLUCOSE 2021-08-13 [facility] 16:22:00 [place] POC GLUCOSE 2021-08-13 [facility] 11:17:00 [place] XR CHEST 1 VW PORTABLE 2021-08-13 [place] [facility] 11:13:27 BASIC METABOLIC PANEL 2021-08-13 [facility] 10:26:00 ESTIMATED GFR 2021-08-13 Ru, Josemanuel [facility] 10:26:00 POC GLUCOSE 2021-08-13 [place], [facility] 00:38:00 [place] HEMODIALYSIS 2021-08-13 Ru Josemanuel [facility]ist Hospit al 00:09:24 MT AN ELECTIVE ENDOTRACHEAL 2021-08-12 Rebolledo, [facility] AIR[facility] 23:45:00 INSERTION, CATHETER, DIALYSIS, 2021-08-12 Josemanuel Vences [facility] PERITONEAL, LAPAROSCOPIC 23:10:00 POC GLUCOSE 2021-08-12 [place], [facility] 20:36:00 [place] COVID-19 QUALITATIVE RT-PCR 2021-08-12 [facility] 17:35:00 POC GLUCOSE 2021-08-12 [place], [facility] 15:58:00 [place] POC GLUCOSE 2021-08-12 [place], [facility] 11:07:00 [place] ECG 12-LEAD 2021-08-12 Jasonban, [facility] 11:02:39 Ricky London BASIC METABOLIC PANEL 2021-08-12 [facility] 09:47:00 Alexandrura aDs ESTIMATED GFR 2021-08-12 [facility] 09:47:00 Alexandru Das POC GLUCOSE 2021-08-12 [facility] 00:51:00 [place] POC GLUCOSE 2021-08-11 [place], [facility] 20:44:00 [place] POC GLUCOSE 2021-08-11 [place], [facility] 16:14:00 [place] POC GLUCOSE 2021-08-11 [place], [facility] 11:06:00 [place] POC GLUCOSE 2021-08-11 [place], [facility] 00:30:00 [place] POC GLUCOSE 2021-08-10 [place], [facility] 20:48:00 [place] POC GLUCOSE 2021-08-10 [place], [facility] 11:07:00 [place] POC GLUCOSE 2021-08-10 [place], [facility] 00:46:00 [place] POC GLUCOSE 2021-08-09 Jasonhoupper [facility], [facility] 21:37:00 [place] HEMODIALYSIS 2021-08-09 [facility] 17:13:01 Alexandru Laxmanrao POC GLUCOSE 2021-08-09 [facility] 16:55:00 [place] POC GLUCOSE 2021-08-09 Tammy Dumont [facility] 11:19:00 Donna BASIC METABOLIC PANEL 2021-08-09 [facility] 10:52:00 Alexandru Laxmanrao ESTIMATED GFR 2021-08-09 [facility] 10:52:00 Alexandru Laxmanrao PROCALCITONIN 2021-08-09 Hyacinth Guthrie [facility] 02:51:00 POC GLUCOSE 2021-08-09 Tammy Dumont [facility] 00:26:00 Donna POC GLUCOSE 2021-08-08 Tammy Dumont [facility] 21:18:00 Donna POC GLUCOSE 2021-08-08 Tim Tammy [facility] 19:34:00 Donna POC GLUCOSE 2021-08-08 Tam[facility] Dumont [facility] 10:58:00 Donna DIGOXIN LEVEL 2021-08-08 Ritu Graves [facility] 10:46:00 [place] BASIC METABOLIC PANEL 2021-08-08 [facility] 10:46:00 Alexandru Laxmanrao ESTIMATED GFR 2021-08-08 [facility] 10:46:00 Alexandru Laxmanrao POC GLUCOSE 2021-08-08 [facility] 02:06:00 Donna POC GLUCOSE 2021-08-07 [facility] 23:09:00 Donna HEMODIALYSIS 2021-08-07 [facility] 20:13:07 Alexandru Laxmanrao POC GLUCOSE 2021-08-07 [facility] 15:50:00 Donna POC GLUCOSE 2021-08-07 [facility] 11:19:00 Donna CBC WITH PLATELET AND 2021-08-07 Lucero, [facility] DIFFERENTIAL 11:15:00 Karie COMPREHENSIVE METABOLIC PANEL 2021-08-07 [facility] 11[facility]15[facility]00 Karie ESTIMATED GFR 2021-08-07 [facility] true 11:15:00 Karie POC GLUCOSE 2021-08-07 [facility] 00:58:00 Donna HEMODIALYSIS 2021-08-06 [facility] 21:36:17 Alexandru Laxmanrao POC GLUCOSE 2021-08-06 [facility]ougouris[facility] 21:21:00 POC GLUCOSE 2021-08-06 [facility]our[facility] 15:39:00 BASIC METABOLIC PANEL 2021-08-06 [facility] 11:19:00 Alexandru Laxmanrao ESTIMATED GFR 2021-08-06 [facility] 11:19:00 Alexandru Nilorao POC GLUCOSE 2021-08-06 [facility] 09:09:00 POC GLUCOSE 2021-08-06 [facility]our[facility], [facility] 04:44:00 HEMODIALYSIS 2021-08-06 [facility] 02:34:43 Alexandru Laxmanrao POC GLUCOSE 2021-08-06 [facility]ouris[facility] 01:09:00 XR CHEST 1 VW PORTABLE 2021-08-05 [facility] 23:40:00 POC GLUCOSE 2021-08-05 [facility]ougouris, [facility] 21:24:00 OR FL < 1 HOUR [facility] MT AN ELECTIVE SUPRAGLOTTIC 2021-08-05 Grazyna Martinez [facility] 20:19:00 Izzy INSERTION, CATHETER, CENTRAL 2021-08-[address] [facility] VENOUS, TUNNELED, FOR 20:13:00 HEMODIALYSIS TYPE AND SCREEN 2021-08-05 [facility] 20:09:00 POC GLUCOSE 2021-08-05 Mougouris, [facility] 15:43:00 ECG 12-LEAD 2021-08-05 [facility] true 14:07:10 POC GLUCOSE 2021-08-05 [facility] 11:25:00 Edwin XR CHEST 1 VW PORTABLE 2021-08-05 [facility] 11:17:10 CBC WITH PLATELET AND 2021-08-05 [facility] DIFFERENTIAL 10:45:00 Karie BASIC METABOLIC PANEL 2021-08-05 [facility] 10:45:00 Karie ESTIMATED GFR 2021-08-05 [facility] 10:45:00 Karie POC GLUCOSE 2021-08-05 [facility] 00:57:00 Edwin POC GLUCOSE 2021-08-04 [facility] 16:51:00 Edwin XR ABDOMEN 1 VW 2021-08-04 [facility] 16:40[facility]00 Karie POC GLUCOSE 2021-08-04 Tim [facility] 11:24:00 Donna HC COMPLETE BLD COUNT W/AUTO DIFF 2021-08-[address] [facility] 11:06:00 Donna BASIC METABOLIC PANEL 2021-08-04 [facility] 11:06:00 Alexandrulake Suo MAGNESIUM LEVEL 2021-08-04 [facility] 11:06:00 Karie PHOSPHORUS LEVEL 2021-08-04 [facility] 11:06:00 Karie ESTIMATED GFR 2021-08-04 [facility]:06[facility]00 Alexandru Laxmanrao POC GLUCOSE 2021-08-04 [facility] 00:57:00 Donna POC GLUCOSE 2021-08-03 [facility] 21:36:00 Donna HEPATITIS B CORE ANTIBODY TOTAL 2021-08-03 [facility] 17:42:00 Alexandru Das HEPATITIS B SURFACE AB, 2021-08-03 [facility] QUANTITATIVE 17:42:00 Alexandru Das HEPATITIS C ANTIBODY 2021-08-03 [facility] ospital 17:42:00 Alexandru aDs HEPATITIS B SURFACE ANTIGEN 2021-08-03 [facility] 17:42:00 Alexandru Das POC GLUCOSE 2021-08-03 [facility] 16:38:00 Donna POC GLUCOSE 2021-08-03 [facility] 11:29:00 Donna HC COMPLETE BLD COUNT W/AUTO DIFF 2021-08-03 [facility] 11:03:00 Karie BASIC METABOLIC PANEL 2021-08-03 [facility] 11:03:00 Karie PHOSPHORUS LEVEL 2021-08-03 [facility] true 11:03:00 Alexandru Das PARATHYROID HORMONE 2021-08-03 [facility] 11:03:00 Eltin ESTIMATED GFR 2021-08-03 [facility] 11:03:00 Karie POC GLUCOSE 2021-08-03 [facility] 00:22:00 Donna CV STRESS TEST NUCLEAR CARDIO 2021-08-02 [facility] 21:45:00 Bahaeddin A. NM MYOCARDIAL PERFUSION REST 2021-08-02 [facility] STRESS 1 DAY 21:45:00 Bahaeddin A. POC GLUCOSE 2021-08-02 [facility] 21:08:00 Donna POC GLUCOSE 2021-08-02 [facility] 16:34:00 Donna POC GLUCOSE 2021-08-02 [facility] 11:19:00 Donna HC COMPLETE BLD COUNT W/AUTO DIFF 2021-08-02 [facility] 09:43:00 Karie BASIC METABOLIC PANEL 2021-08-02 [facility] 09:43:00 Karie MAGNESIUM LEVEL 2021-08-02 [facility] 09:43:00 Karie ESTIMATED GFR 2021-08-02 Lucero[facility] R[facility] 09:43:00 Kaire POC GLUCOSE 2021-08-02 [facility] 00:15:00 Donna POC GLUCOSE 2021-08-01 Tim [facility] 20:02:00 Donna POC GLUCOSE 2021-08-01 Tim, [facility] 16:16:00 Donna POC GLUCOSE 2021-08-01 [facility] 11:16:00 Donna BASIC METABOLIC PANEL 2021-08-01 [facility] 10:56:00 Theresa MAGNESIUM LEVEL 2021-08-01 [facility] 10:56:00 Theresa PHOSPHORUS LEVEL 2021-08-01 [facility] 10:56:00 Theresa HC COMPLETE BLD COUNT W/AUTO DIFF 2021-08-01 Ender Lucero [facility] 10:56:00 Karie ESTIMATED GFR 2021-08-01 [facility] 10:56:00 Theresa ECG 12-LEAD 2021-08-[address] [facility] Hospit al 08:03:48 Bahaeddin A. POC GLUCOSE 2021-08-01 [facility] 01:35:00 Donna TTE COMPLETE, WO CONTRAST, W 2021-07-31 [id number] 23:38:00 Bahaeddin A. POC GLUCOSE 2021-07-31 [facility] 22:40:00 Donna COVID-19 QUALITATIVE RT-PCR 2021-07-31 Rupali Lucero [facility] 17:14:00 Karie POC GLUCOSE 2021-07-31 [facility] 17:07:00 Donna POC GLUCOSE 2021-07-31 Tim [facility] 12:13:00 Donna B NATRIURETIC PEPTIDE 2021-07-31 [place] 11:34:00 Eltin BASIC METABOLIC PANEL 2021-07-31 [place] 11:34:00 Eltin HC COMPLETE BLD COUNT W/AUTO DIFF 2021-07-31 [place] 11:34:00 Eltin TROPONIN T 2021-07-31 [facility] 11:34:00 Eltin ESTIMATED GFR 2021-07-31 [facility] 11:34:00 Avery Plan of Care Planned Activity Planned Date [...] Cessation Counseling and Screening (12+)] Future Scheduled 2022-12-27 SHINGLES VACCINES (2 [facility] Test 16:19:14 of 3) [code = SHINGLES VACCINES (2 of 3)] Future Scheduled 2022-12-27 BREAST CANCER [facility] Test 16:19:14 SCREENING [code = BREAST CANCER SCREENING] Future Scheduled 2022-12-27 COVID-19 VACCINE (4 - [facility] Test 16:19:14 Pfizer series) [code = COVID-19 VACCINE (4 - Pfizer series)] Future Scheduled 2022-12-27 [facility]ACCINE [facility] 16:19:14 [code = INFLUENZA VACCINE] Future Scheduled 2022-12-27 [facility] 16:19:14 malignant neoplasm of colon (procedure) [code = 987382305] Future Scheduled 2022-12-27 [facility] 16:19:14 malignant neoplasm of colon (procedure) [code = 415527308] Future Scheduled 2022-12-27 [facility] 16:19:14 malignant neoplasm of colon (procedure) [code = 718139420] Future Scheduled 2022-12-27 DIABETIC FOOT EXAM [facility] Test 16:19:14 [code = DIABETIC FOOT EXAM] Future Scheduled 2022-12-27 [facility] 16:19:14 malignant neoplasm of colon (procedure) [code = 155440413] Future Scheduled 2022-12-27 [facility] 16:19:14 malignant neoplasm of colon (procedure) [code = 212435542] Future Scheduled 2022-12-27 DIABETES: RETINAL EYE [facility] Test 16:19:14 EXAM [code = DIABETES: RETINAL EYE EXAM] Future Scheduled 2022-12-23 [facility] 16:29:20 malignant neoplasm of colon (procedure) [code = 407334924] Future Scheduled 2022-12-23 [facility] 16:29:20 malignant neoplasm of colon (procedure) [code = 850951590] Future Scheduled 2022-12-23 [facility] 16:29:20 malignant neoplasm of colon (procedure) [code = 234426814] Future Scheduled 2022-12-23 DIABETIC FOOT EXAM [facility] Test 16:29:20 [code = DIABETIC FOOT EXAM] Future Scheduled 2022-12-23 [facility] 16:29:20 malignant neoplasm of colon (procedure) [code = 315696598] Future Scheduled 2022-12-23 [facility] 16:29:20 malignant neoplasm of colon (procedure) [code = 940152323] Future Scheduled 2022-12-23 DIABETES: RETINAL EYE [facility] Test 16:29:20 EXAM [code = DIABETES: RETINAL EYE EXAM] Future Scheduled 2022-12-23 SHINGLES VACCINES ([facility] 16[facility]29:20 of 3) [code = SHINGLES VACCINES (2 of 3)] Future Scheduled 2022-12-23 [facility]ER [facility] 16:29:20 SCREENING [code = BREAST CANCER SCREENING] Future Scheduled 2022-12-23 COVID-19 VACCINE (4 - [facility] Test 16:29:20 Pfizer series) [code = COVID-19 VACCINE (4 - Pfizer series)] Future Scheduled 2022-12-23 INFLUENZA VACCINE [facility] 16:29:20 [code = INFLUENZA VACCINE] Future Scheduled 2022-11-04 [facility] 18:43:52 malignant neoplasm of colon (procedure) [code = 788296864] Future Scheduled 2022-11-04 [facility] 18:43:52 malignant neoplasm of colon (procedure) [code = 502953450] Future Scheduled 2022-11-04 [facility] 18:43:52 malignant neoplasm of colon (procedure) [code = 287605412] Future Scheduled 2022-11-04 DIABETIC FOOT EXAM [facility] Test 18:43:52 [code = DIABETIC FOOT EXAM] Future Scheduled 2022-11-04 Screening for [facility] Test 18:43:52 malignant neoplasm of colon (procedure) [code = 603944086] Future [facility] 2022-11-04 [facility] malignant neoplasm of colon (procedure) [code = 835143595] Future Scheduled 2022-11-04 DIABETES: RETINAL EYE [facility] Test 18:43:52 EXAM [code = DIABETES: RETINAL EYE EXAM] Future Scheduled 2022-11-04 SHINGLES VACCINES (2 Met [facility] Test 18:43:52 of 3) [code = SHINGLES VACCINES (2 of 3)] Future Scheduled 2022-11-04 [facility] 18:43[facility]52 SCREENING [code = BREAST CANCER SCREENING] Future Scheduled 2022-11-04 COVID-19 VACCINE (4 - [facility] 18:43:52 Pfizer series) [code = COVID-19 VACCINE (4 - Pfizer series)] Future Scheduled 2022-11-04 IN[facility]ZA VACCINE [facility] 18:43:52 [code = INFLUENZA VACCINE] Future Scheduled 2022-11-04 [facility] 18:43:52 malignant neoplasm of colon (procedure) [code = 249519096] Future Scheduled 2022-11-04 [facility] 18:43:52 malignant neoplasm of colon (procedure) [code = 725890359] Future Scheduled 2022-11-04 [facility] 18:43:52 malignant neoplasm of colon (procedure) [code = 122066563] Future Scheduled 2022-11-04 DIABETIC FOOT EXAM [facility] Test 18:43:52 [code = DIABETIC FOOT EXAM] Future Scheduled 2022-11-04 [facility] 18:43:52 malignant neoplasm of colon (procedure) [code = 019449418] Future Scheduled 2022-11-04 [facility] 18:43:52 malignant neoplasm of colon (procedure) [code = 763475119] Future Scheduled 2022-11-04 DIABETES: RETINAL EYE [facility] Test 18:43:52 EXAM [code = DIABETES: RETINAL EYE EXAM] Future Scheduled 2022-11-04 SHINGLES VACCINES (2 [facility] Test 18:43:52 of 3) [code = SHINGLES VACCINES (2 of 3)] Future Scheduled 2022-11-04 BREAST CANCER [facility] Test 18:43:52 SCREENING [code = BREAST CANCER SCREENING] Future Scheduled 2022-11-04 COVID-19 VACCINE (4 - [facility] Test 18:43:52 Pfizer series) [code = COVID-19 VACCINE (4 - Pfizer series)] Future Scheduled 2022-11-04 INFLUENZA VACCINE [facility] Test 18:43:52 [code = INFLUENZA VACCINE] Future Scheduled 2022-09-27 DIABETIC FOOT EXAM [facility] Test 12:29:06 [code = DIABETIC FOOT EXAM] Future Scheduled 2022-09-27 COLONOSCOPY SCREENING [facility] Test 12:29:06 [code = COLONOSCOPY SCREENING] Future Scheduled 2022-09-27 DIABETES: RETINAL EYE [facility] Test 12:29:06 EXAM [code = DIABETES: RETINAL EYE EXAM] Future Scheduled 2022-09-27 SHINGLES VACCINES (1 [facility] Test 12:29:06 of 2) [code = SHINGLES VACCINES (1 of 2)] Future Scheduled 2022-09-27 BREAST CANCER [facility] Test 12:29:06 SCREENING [code = BREAST CANCER SCREENING] Future Scheduled 2022-09-27 COVID-19 VACCINE (4 - [facility] Test 12:29:06 Booster for Pfizer series) [code = COVID-19 VACCINE (4 - Booster for Pfizer series)] Future Scheduled 2022-09-27 INFLUENZA VACCINE [facility] Test 12:29:06 [code = INFLUENZA VACCINE] Future Scheduled 2022-09-27 DIABETIC FOOT EXAM [facility] Test 12:29:06 [code = DIABETIC FOOT EXAM] Future Scheduled 2022-09-27 COLONOSCOPY SCREENING [facility] Test 12:29:06 [code = COLONOSCOPY SCREENING] Future Scheduled 2022-09-27 DIABETES: RETINAL EYE [facility] Test 12:29:06 EXAM [code = DIABETES: RETINAL EYE EXAM] Future Scheduled 2022-09-27 SHINGLES VACCINES (1 [facility] Test 12:29:06 of 2) [code = SHINGLES VACCINES (1 of 2)] Future Scheduled 2022-09-27 BREAST CANCER [facility] Test 12:29:06 SCREENING [code = BREAST CANCER SCREENING] Future Scheduled 2022-09-27 COVID-19 VACCINE (4 - [facility] Test 12:29:06 Booster for Pfizer series) [code = COVID-19 VACCINE (4 - Booster for Pfizer series)] Future Scheduled 2022-09-27 INFLUENZA VACCINE [facility] Test 12:29:06 [code = INFLUENZA VACCINE] Future Scheduled 2022-09-27 DIABETIC FOOT EXAM [facility] Test 12:29:06 [code = DIABETIC FOOT EXAM] Future Scheduled 2022-09-27 COLONOSCOPY SCREENING [facility] Test 12:29:06 [code = COLONOSCOPY SCREENING] Future Scheduled 2022-09-27 DIABETES: RETINAL EYE [facility] Test 12:29:06 EXAM [code = DIABETES: RETINAL EYE EXAM] Future Scheduled 2022-09-27 SHINGLES VACCINES (1 Met [facility] Hospital Test 12:29:06 of 2) [code = SHINGLES VACCINES (1 of 2)] Future Scheduled 2022-09-27 BREAST CANCER [facility] Test 12:29:06 SCREENING [code = BREAST CANCER SCREENING] Future Scheduled 2022-09-27 COVID-19 VACCINE (4 - [facility] Test 12:29:06 Booster for Pfizer series) [code = COVID-19 VACCINE (4 - Booster for Pfizer series)] Future Scheduled 2022-09-27 INFLUENZA VACCINE [facility] 12:29:06 [code = INFLUENZA VACCINE] Future Scheduled 2022-08-20 [facility] Test 03:10:19 [code = DIABETIC FOOT EXAM] Future Scheduled 2022-08-20 COLONOSCOPY SCREENING [facility] Test 03:10:19 [code = COLONOSCOPY SCREENING] Future Scheduled 2022-08-20 DIABETES: RETINAL EYE [facility] Test 03:10:19 EXAM [code = DIABETES: RETINAL EYE EXAM] Future Scheduled 2022-08-20 SHINGLES VACCINES (1 Met [facility] Hospital Test 03:10:19 of 2) [code = SHINGLES VACCINES (1 of 2)] Future Scheduled 2022-08-20 [facility] 03:10:19 SCREENING [code = BREAST CANCER SCREENING] Future Scheduled 2022-08-20 COVID-19 VACCINE (4 - [facility] Test 03:10:19 Booster for Pfizer series) [code = COVID-19 VACCINE (4 - Booster for Pfizer series)] Future Scheduled 2022-08-20 INFLUENZA VACCINE [facility] 03:10:19 [code = INFLUENZA VACCINE] Future Scheduled 2022-07-19 DIABETIC FOOT EXAM [facility] Test 07:26:52 [code = DIABETIC FOOT EXAM] Future Scheduled 2022-07-19 COLONOSCOPY SCREENING [facility] Test 07:26:52 [code = COLONOSCOPY SCREENING] Future Scheduled 2022-07-19 DIABETES: RETINAL EYE [facility] Test 07:26:52 EXAM [code = DIABETES: RETINAL EYE EXAM] Future Scheduled 2022-07-19 [facility]LES [facility]INES ([facility] 07:26:52 of 2) [code = SHINGLES VACCINES (1 of 2)] Future Scheduled 2022-07-19 [facility] 07:26:52 SCREENING [code = BREAST CANCER SCREENING] Future Scheduled 2022-07-19 COVID-19 VACCINE (4 - [facility] 07:26:52 Booster for Pfizer series) [...] SCREENING] Future Scheduled 2022-05-17 DIABETIC FOOT EXAM [facility] Test 10:42:08 [code = DIABETIC FOOT EXAM] Future Scheduled 2022-05-17 COLONOSCOPY SCREENING [facility] Test 10:42:08 [code = COLONOSCOPY SCREENING] Future Scheduled 2022-05-17 DIABETES: RETINAL EYE [facility] Test 10:42:08 EXAM [code = DIABETES: RETINAL EYE EXAM] Future Scheduled 2022-05-17 SHINGLES VACCINES (1 Met [facility] Hospital Test 10:42:08 of 2) [code = SHINGLES VACCINES (1 of 2)] Future Scheduled 2022-05-17 BREAST CANCER [facility] Test 10:42:08 SCREENING [code = BREAST CANCER SCREENING] Future Scheduled 2022-05-17 COVID[facility]19 [facility] 10:42:08 Booster for Pfizer series) [...] [facility] Center breast (procedure) [code = 444696676] Future Scheduled [address] [facility] 00:00:00 (combo) [code = CT Medical C enter Colonography (combo)] Future Scheduled [address] [facility]00 malignant neoplasm of [facility]ica [facility] Center colon (procedure) [code = 975768200] Future Scheduled [address] [facility] 00:00:00 malignant neoplasm of [facility] Center colon (procedure) [code = 850958838] Future Scheduled 1948 DXA SCAN [code = DXA [facility] Test 00:00:00 SCAN] [facility] Future Scheduled [address] [facility] 00:00:00 malignant neoplasm of [facility] Center colon (procedure) [code = 074885213] Future Scheduled [address] [facility] 00:00:00 malignant neoplasm of [facility] Center colon (procedure) [code = 138915852] Future Scheduled 1948 Sigmoidoscopy [facility]code [facility] Future Scheduled [address] [facility] 00:00:00 malignant neoplasm of [facility]ica [facility] Center breast (procedure) [code = 389895655] Future Scheduled [address] [facility] 00:00:00 (combo) [code = CT Medical C enter Colonography (combo)] Future Scheduled [address] [facility] 00:00:00 malignant neoplasm of [facility]ica [facility] Center colon (procedure) [code = 527400238] Future Scheduled [address] [facility] 00:00:00 malignant neoplasm of [facility]ica [facility] Center colon (procedure) [code = 905772205] Future Scheduled 1948 DXA SCAN [code = DXA [facility] Test 00:00:00 SCAN] [facility] Future Scheduled [address] [facility] 00:00:00 malignant neoplasm of [facility] Center colon (procedure) [code = 450293209] Future Scheduled [address] [facility] 00:00:00 malignant neoplasm of [facility] Center colon (procedure) [code = 322183598] Future Scheduled 1948 [facility]oid[facility] [address] [facility] 00:00:00 malignant neoplasm of [facility] Center breast (procedure) [code = 446768697] Future Scheduled [address] [facility] 00:00:00 (combo) [code = CT Medical C enter Colonography (combo)] Future Scheduled [address] [facility] 00:00:00 malignant neoplasm of [facility]ica [facility] Center colon (procedure) [code = 730316550] Future Scheduled [address] [facility] 00:00:00 malignant neoplasm of [facility] Center colon (procedure) [code = 388202249] Future Scheduled 1948 DXA SCAN [code = DXA [facility] Test 00:00:00 SCAN] [facility] Future Scheduled [address] [facility] 00:00:00 malignant neoplasm of [facility] Center colon (procedure) [code = 483905762] Future Scheduled [address] [facility] 00:00:00 malignant neoplasm of [facility] Center colon (procedure) [code = 887635321] Future Scheduled 1948 [facility]oidoscopy [facility] [address] [facility] 00:00:00 malignant neoplasm of [facility] Center breast (procedure) [code = 867859788] Future Scheduled [address] [facility] 00:00:00 (combo) [code = CT Medical C enter Colonography (combo)] Future Scheduled [address] [facility] 00:00:00 malignant neoplasm of [facility] Center colon (procedure) [code = 361539241] Future Scheduled [address] [facility] 00:00:00 malignant neoplasm of [facility] Center colon (procedure) [code = 480494003] Future Scheduled 1948 DXA SCAN [code = DXA [facility] Test 00:00:00 SCAN] [facility] Future Scheduled [address] [facility] 00:00:00 malignant neoplasm of [facility]ica [facility] Center colon (procedure) [code = 334860148] Future Scheduled [address] [facility] 00:00:00 malignant neoplasm of [facility] Center colon (procedure) [code = 944207305] Future Scheduled 1948 [facility]oidoscopy [facility] Future Scheduled [address] [facility] Test 00:00:00 malignant neoplasm of Medica l Center breast (procedure) [code = 853693308] Future Scheduled [address] [facility] 00:00:00 (combo) [code = CT Medical C enter Colonography (combo)] Future Scheduled [address] [facility] 00:00:00 malignant neoplasm of [facility]ica [facility] Center colon (procedure) [code = 253671108] Future Scheduled [address] [facility] 00[facility]00:00 malignant neoplasm of [facility]ica [facility] Center colon (procedure) [code = [id number]] Future Scheduled 1948 DXA SCAN [code = DXA [facility] Test 00:[facility]:00 SCAN] [facility] Future Scheduled [address] [facility]procedure) [code = 667865030] Future Scheduled [address] [facility] 00[facility]00:00 [facility] (procedure) [code = 479074691] Future Scheduled 1948 Sigmoidoscopy [facility]code = [facility]] [facility] Future Scheduled [address] [facility] 00:00:00 [facility] breast (procedure) [code = 200524631] Future Scheduled [address] [facility] 00:00:00 (combo) [code = CT Medical C enter Colonography (combo)] Future Scheduled [address] [facility] Test 00:00:00 [facility] (procedure) [code = 075707391] Future Scheduled [address] [facility] Test 00:00:00 [facility] colon (procedure) [code = 625922426] Future Scheduled 1948 DXA SCAN [code = DXA [facility] Test 00:00:00 SCAN] [facility] Future Scheduled [address] [facility] 00:00:00 [facility] (procedure) [code = 740579447] Future Scheduled [address] [facility] Test 00:00:00 [facility] (procedure) [code = 502112983] Future Scheduled 1948 Sigmoidoscopy [facility]code = [facility]] [facility] Future Scheduled [address] [facility] 00:00:00 [facility] breast (procedure) [code = 783170073] Future Scheduled [address] [facility] 00:00:00 (combo) [code = CT Medical C enter Colonography (combo)] Future Scheduled [address] [facility] 00:00:00 [facility] colon (procedure) [code = 694132011] Future Scheduled [address] [facility] Test 00:00:00 [facility] colon (procedure) [code = 015207583] Future Scheduled 1948 DXA SCAN [code = DXA [facility] Test 00:00:00 SCAN] [facility] Future Scheduled [address] [facility] Test 00:00:00 malignant neoplasm of [facility] colon (procedure) [code = 403110698] Future Scheduled [address] [facility] Test 00:00:00 malignant neoplasm of [facility] colon (procedure) [code = 037424098] Future Scheduled 1948 Sigmoidoscopy [facility]code [facility]] [facility] En[facility]ters Start End Encounter Admission Attending Care Care Encounter Source Date/Time Date/Time Type Type Clinicians Facility Department ID 2022-10-09 Outpatient 3 [id number] [facility] REF [id number] [facility] 14:26:14 [facility] [place] 2022-10-08 Outpatient 3 [id number] [facility] REF [id number] [facility] 10:03:46 [facility] [place] 2022-06-08 Inpatient EL Alfredo, HCACL DAYS [id number] [facility] 09:00:00 Greg 07 [facility] 2022-01-05 Inpatient [facility] [id number] [facility] 13[facility] 2021-11-04 Outpatient [facility] [id number] [place] 14:10:46 [id number] [facility] 2021-08-11 Outpatient [facility] [id number] [place] 09:26:19 [id number] [facility] 2022-10-10 2022-10-26 Inpatient 3 Jose Martin, ENCPL CRD [id number] [facility] 17:08:00 11:30:00 Anirudh 05[facility] [place] 2022-07-05 2022-07-05 Orders Doctor MANN 1.2.840.114 [id number] [facility] 00:00:00 00:00:00 Only Unassigned, YARELI 350.1.13.10 ity of [place] [facility] 4.2.7.2.686 Kev as [phone] [address] 2022-04-01 2022-04-01 Orders Doctor MACKENZIE 1.2.840.114 [id number] Univers 00:00:00 00:00:00 Only Unassigned, YARELI 350.1.13.10 ity of [place] [facility] 4.2.7.2.686 Kev as [phone] [address] 2022-03-24 2022-03-24 [facility]phone [facility] 1.2.824.706 [id number] Univers 00:00:00 00:00:00 Luc S HEALTH 350.1.13.10 it y of [place] 4.2.7.2.686 Kev as MARISA?BLEA [phone] Fl garcía LOVE [address] [place] [address] OFFICE [facility] 2022-03-23 2022-03-23 Telephone [facility] 1.2.528.223 [id number] Univers 00:00:00 00:00:00 Luc S HEALTH 350.1.13.10 [facility] 4.2.7.2.686 Kev as MARISA?BLEA [phone] Fl garcía LOVE [address] [place] [address] 2022-03-18 2022-03-18 Telephone [facility] 1.2.840.114 [id number] Univers 00:00:00 00:00:00 Alannah L HEALTH 350.1.13.10 it y of [place] 4.2.7.2.686 Kev as MARISA?BLEA [phone] Fl garcía LOVE [address] [place] [address] 2022-03-16 2022-03-16 Telephone [facility] 1.2.840.114 [id number] Univers 00:00:00 00:00:00 Alannah L SPECIALTY 350.1.13.10 ity of [place] [phone] Fl garcía [place] [address] [place] [address] 2022-01-07 2022-01-18 [facility] Annalee Mckinley [facility] [id number] [facility] 17:48:00 16:48:00 Encounter Reji [facility] 2022-01-07 2022-01-18 Inpatient UR LAYNE [facility] Surgery [id number] [facility] 17:48:00 16:48:00 ANNALEE 2022-01-07 2022-01-[address] [facility] [id number] [facility] 00:00:00 00:00:00 [facility] 2022-01-02 2022-01-02 Outpatient Debora RENNER, [facility] [id number] Univers 00:00:00 00:00:00 ALANNAH durand [facility] 2021-09-06 2021-09-16 [facility] Derian Trinidad Witte 1.2.840.1 10 [id number] Methodi 14:46:00 18:55:00 Encounter Corrine Osuna 52753.1.[address] 3.430.2.7 Hospit a .3.956819 l .8 2021-09-13 2021-09-13 Anesthesia McIpatyoe, 1.2.840.1 [id number] Methodi 14:58:00 15:19:00 Event Edwin 33803.1.[address] Alannah 3.430.2.7 Hospit a .3.404318 l .8 2021-09-13 2021-09-13 Surgery John, 1.2.840.1 [id number] Methodi 14:22:00 14:27:[address] Ongeri 3.430.2.7 Hospit a .3.508732 l .8 2021-09-06 2021-09-06 Travel 1.2.840.1 1.2.165.828 0500 [id number] Methodi 00:00:00 00:00:[address] 3.430.2.7 0.2.7.3.698 Ho spita .3.509258 084.8 l .8 2021-07-31 2021-08-13 [facility] Tammy Dumont 1.2.840.1 1045 75501 [id number] Methodi 04:12:00 19:46:00 Encounter Edwin Ayers 50057.1.[address] Tasneem Ellison 3.430.2.7 Hospita Annalee Nuñez .3.110620 l .8 2021-08-12 2021-08-12 Anesthesia AmauryLeodan 1.2.840.1 [id number] Methodi 18:09:00 19:38:[address] 3.430.2.7 Hospit a .3.241709 l .8 2021-08-12 2021-08-12 Surgery Ru, 1.2.840.1 [id number] 4968 Methodi 17:35:00 18:50:[address] 3.430.2.7 Hospit a .3.762432 l .8 2021-08-05 2021-08-05 Anesthesia Andre Navarro 1.2.840.1 [id number] Methodi 15:12:00 16:16:00 Event Grazyna Martinez 06935.1.[address] 3.430.2.7 Hospit a .3.202790 l .8 2021-08-05 2021-08-05 Surgery Abbie, 1.2.840.1 [id number] 2193 Methodi 15:20:00 16:05:[address] 3.430.2.7 Hospit a .3.273862 l .8 2021-08-02 2021-08-02 Documentat Provider, 1.2.840.1 [id number] 2 [id number] Methodi 00:00:00 00:00:00 ion Unknown 22173.1.[address] 3.430.2.7 Hospit a .3.284807 l .8 2021-07-14 2021-07-14 Transcribe Shabana 1.2.840.1 [id number] Methodi 00:00:00 00:00:00 Juli , Zulema 30485.1.[address] 3.430.2.7 Hospit a .3.612697 l .8 2021-06-10 2021-06-10 Clinical 1.2.840.1 [id number] [id number] Methodi 15:45:00 15:58:[address] 3.430.2.7 Hospit a .3.115340 l .8 2021-06-10 2021-06-10 Travel 1.2.840.1 1.2.374.828 5812 [id number] Methodi 00:00:00 00:00:[address] 3.430.2.7 0.2.7.3.698 Ho spita .3.151558 084.8 l .8 2021-06-09 2021-06-09 Outpatient Daniel_T VFP [facility] [id number] 02-08 [facility] 11:40:00 11:40:00 [id number] Family Practic e 2021-06-01 2021-06-04 Outpatient AL-LAHIQ, [facility]4 [id number] 71867 [place] 00:00:00 00:00:[address] MAHA [address] 2020-08-05 2020-08-05 Outpatient [facility] [id number] [place] 00:00:00 00:00:00 , ZULEMA [address] 2020-07-09 2020-07-09 Outpatient [facility] [id number] [place] 00:00:00 00:00:[address] 2020-06-18 2020-06-18 Outpatient [facility] [id number] [place] 00:00:00 00:00:[address] 2020-04-05 2020-04-06 Outpatient AL-LAHIQ, [facility]4 [id number] 76531 [place] 00:00:00 00:00:00 MAHA [address] 2020-03-22 2020-03-25 Inpatient AL-LAHIQ, [facility]4 [id number] 2804 [place] 00:00:00 00:00:00 MAHA [address] 2020-02-27 2020-02-27 Outpatient HIGUERA, [facility] [id number] 6143 [place] 00:00:00 00:00:00 DAVID [address] 2020-02-17 2020-02-18 Outpatient AL-LAHIQ, [facility]4 46197 02656 [place] 00:00:00 00:00:00 MAHA 408 Method i 2020-01-17 2020-01-18 Emergency JOSE A, [facility] 064 [id number] 46 [place] 00:00:00 00:00:00 SHAKEEL 668 Method i 2019-10-23 2019-10-26 Inpatient AL-YOBANY, [facility] 064 [id number] 9078 [place] 00:00:00 00:00:00 MAHA 153 Method i 2019-08-05 2019-08-05 Outpatient FRIEND-SAMMAN [facility] 072 [id number] [place] 00:00:00 00:00:00 , ZULEMA 952 Method i 2019-07-10 2019-07-12 Inpatient AL-LAHIQ, [facility] [id number] 9183 [place] 00:00:00 00:00:00 MAHA 402 Method i 2019-03-27 2019-03-30 Outpatient BOAZ, [facility] 2100 [id number] [place] 00:00:00 00:00:00 SARAI 954 Method i Results Test Description Test Time Test Comments Results Result Comments Source POC-Glucose meter 2022-01-18 12:22:13 Test Item Value Reference Range Interpretation Comme nts POC-Glucose Meter (test code = 102 mg/dL 70-110 : TESTED AT [address] 153) [facility] [address]: Neurosurgical Physician Assistant/Techni faviola ID = [id number] for Yelling, [place] a Lab Interpretation (test code = Normal 92396-7) [facility] [id number] 12:22:13 Test Item Value Reference Range Interpretation Comments POC-Glucose Meter (test 102 mg/dL 70-110 : TE STED AT [facility] code = 1538) [address] [place] [address]: Neurosurgical Physician Assistant/Techni faviola ID = [id number] for Yelling, [place] a Lab Interpretation (test Normal code = 05986-2) [facility] [id number] 12:22:13 Test Item Value Reference Range Interpretation Comments POC-Glucose Meter (test 102 mg/dL 70-110 : TE STED AT [facility] code = 1538) [address] [place] [address]1008: Neurosurgical Physician Assistant/Techni faviola ID = [id number] for Yelling, [place] a Lab Interpretation (test Normal code = 86533-6) [facility]-Glucose [id number] 12:22:13 Test Item Value Reference Range Interpretation Comments POC-Glucose Meter (test 102 mg/dL 70-110 : TE STED AT [facility] code = 1538) [address] [place] [address] 30143: Neurosurgical Physician Assistant/Techni faviola ID = [id number] for Yelling, [place] a Lab Interpretation (test Normal code = 77774-5) [facility]-Glucose [id number] 12:22:13 Test Item Value Reference Range Interpretation Comments POC-Glucose Meter (test 102 mg/dL 70-110 : [facility] code = 1538) [address] [place], [place] [address]: Neurosurgical Physician Assistant/Techni faviola ID = [id number] for Yelling, [place] a Lab Interpretation (test Normal code = 96146-9) [facility] [id number] 12:22:13 Test Item Value Reference Range Interpretation Comments POC-Glucose Meter (test 102 mg/dL 70-110 : TE STED [facility] code = 1538) [address] [place], [place] [address]: Neurosurgical Physician Assistant/Techni faviola ID = [id number] for Yelling, [place] a Lab Interpretation (test Normal code = 70258-3) [facility] [id number] 12:22:13 Test Item Value Reference Range Interpretation Comments POC-Glucose Meter (test 102 mg/dL 70-110 : TE STED [facility] code = 1538) [address] [place] [address] 02420: Neurosurgical Physician Assistant/Techni faviola ID = [id number] for Yelling, [place] a Lab Interpretation (test Normal code = 83892-7) [facility]-GLUCOSE [id number] 12:22:13 Test Item Value Reference Range Interpretation Comments POC-GLUCOSE METER 102 mg/dL 70-110 : TESTED A T [facility] 1317 (BEAKER) (test code [facility], = 1538) [facility] 77 478: Neurosurgical Physician Assistant/Techni faviola ID = [id number] for Zuri Maharaj BASIC METABOLIC [id number] 06:40:34 Test Item Value Reference Range Interpretation [...] not appl icable for dialysis patien ts Neurosurgical Physician Assistant ID - [id number] ID - [id number] ID - CIZQUBUVN967Lkmnmkdb ID - YCMKBVQIW308Bgdfvduy ID - WELAKCEWH624Xcxkombl ID - IMBQWFAYV750Dsmpvitw ID - JVTEDHPHY069Wicdhsdw ID - QMSIBEJRA217Ptynvnex ID - FYGAXWLOF725Gnhctpgi ID - NGDMCSDIS440Hkomjuzu ID - VNVJKZSWR496Dflplyfr ID - QJAINRUWD678Xhbuxtol ID - JGRHGVHJV079RQSI-KKTIAVI [id number] 19:58:07 Test Item Value Reference Range Interpretation Comments POC-GLUCOSE METER 126 mg/dL 70-110 H : [facility] 1317 (BEAKER) (test code [facility], = 1538) [place] [address]: Neurosurgical Physician Assistant/Techni faviola ID = [id number] for Ina Agrawal POCT-GLUCOSE [id number] 17:18:36 Test Item Value Reference Range Interpretation Comments POC-GLUCOSE METER 128 mg/dL 70-110 H : Notified RN/MD: TESTED (BEAKER) (test code AT [facility] 1317 [address] = 1538) [place] [address]: Neurosurgical Physician Assistant/Techni faviola ID = [id number] for Maninder figueroa, [place] POCT-GLUCOSE [id number] 12:27:16 Test Item Value Reference Range Interpretation Comments POC-GLUCOSE METER 141 mg/dL 70-110 H : [facility] 1317 (BEAKER) (test code [facility], = 1538) [place] [address]: Neurosurgical Physician Assistant/Techni faviola ID = [id number] for Maninder figueroa, [place] POCT-GLUCOSE [id number] 08:42:44 Test Item Value Reference Range Interpretation Comments POC-GLUCOSE METER 152 mg/dL 70-110 H : Notified RN/MD: TESTED (BEAKER) (test code AT [facility] 13[address] = 1538) [place] [address]: Neurosurgical Physician Assistant/Techni faviola ID = [id number] for Maninder figueroa, [place] BASIC METABOLIC [id number] 05:53:56 Test Item Value Reference Range Interpretation [...] not appl icable for dialysis patien ts Neurosurgical Physician Assistant ID - [id number] ID - [id number] ID - SCOENMZIK416Clscdmku ID - SVOOKSCAL220Fkfwtnyd ID - LRQBEDLIO636Idgtpjrc ID - NKYPCDZFA816Uqcfbwtx ID - YVPHNYYNV345Vtwgzsiv ID - ULZKJCFEM150Qrjbmztg ID - BRSSPJCVR819Knsttcju ID - KLNKPXZBL811Scflugsg ID - UQAPRVCAZ251Amlhnttg ID - LZWCADWPB286Bvvkiygx ID - [id number]-CXSGNND [id number] 20:28:58 Test Item Value Reference Range Interpretation Comments POC-GLUCOSE METER 184 mg/dL 70-110 H : TESTED A T [facility] 1317 (BEAKER) (test code [address], = 1538) [place] [address]98478: Neurosurgical Physician Assistant/Techni faviola ID = [id number] for Ina Agrawal POCT-GLUCOSE [id number] 15:57:54 Test Item Value Reference Range Interpretation Comments POC-GLUCOSE METER 187 mg/dL 70-110 H : TESTED A T [facility] [address]17 (BEAKER) (test code [address], = 1538) [place] [address] 478: Neurosurgical Physician Assistant/Techni faviola ID = [id number] for Aileen Loja POCT-GLUCOSE [id number] 11:57:54 Test Item Value Reference Range Interpretation Comments POC-GLUCOSE METER 163 mg/dL 70-110 H : TESTED A T [facility] [address]17 (BEAKER) (test code [address], = 1538) [place] [address] 478: Neurosurgical Physician Assistant/Techni faviola ID = [id number] for Ej vergara Aileen POCT-GLUCOSE [id number] 07:59:00 Test Item Value Reference Range Interpretation Comments POC-GLUCOSE METER 129 mg/dL 70-110 H : TESTED A T [facility] [address]17 (BEAKER) (test code [address], = 1538) [place] 998478: Neurosurgical Physician Assistant/Techni faviola ID = [id number] for Ej vergara Aileen POCT-GLUCOSE [id number] 20:24:24 Test Item Value Reference Range Interpretation Comments POC-GLUCOSE METER 185 mg/dL 70-110 H : TESTED A T [facility] [address]17 (BEAKER) (test code [address], = 1538) [place] 998478: Neurosurgical Physician Assistant/Techni faviola ID = [id number] for Renny Agustin eprea POCT-GLUCOSE [id number] 18:05:34 Test Item Value Reference Range Interpretation Comments POC-GLUCOSE METER 126 mg/dL 70-110 H : TESTED A T [facility] [address]17 (BEAKER) (test code [address], = 1538) [place] [address]478: Neurosurgical Physician Assistant/Techni faviola ID = [id number] for Consuelo Leija POCT-GLUCOSE [id number] 12:43:19 Test Item Value Reference Range Interpretation Comments POC-GLUCOSE METER 154 mg/dL 70-110 H : TESTED A T [facility] [address]17 (BEAKER) (test code [address], = 1538) [place] 998478: Neurosurgical Physician Assistant/Techni faviola ID = [id number] for Consuelo Leija POCT-GLUCOSE [id number] 07:44:17 Test Item Value Reference Range Interpretation Comments POC-GLUCOSE METER 142 mg/dL 70-110 H : TESTED A T [facility] [address]17 (BEAKER) (test code [address], = 1538) [place] [address] 478: Neurosurgical Physician Assistant/Techni faviola ID = [id number] for Consuelo Leija BASIC METABOLIC [id number] 05:55:22 Test Item Value Reference Range Interpretation [...] not appl icable for dialysis patien ts Neurosurgical Physician Assistant ID - LITOOperator ID - LITOOperator ID - LITOOperator ID - LITOOperator ID - LITOOperator ID - LITOOperator ID - LITOOperator ID - LITOOperator ID - LITOOperator ID - LITOOperator ID - LITOOperator ID - LITOOperator ID - MARTÍN POCT-GLUCOSE [id number] 20:53:58 Test Item Value Reference Range Interpretation Comments POC-GLUCOSE METER 194 mg/dL 70-110 H : TESTED A T [facility] 1317 (BEAKER) (test code [address], = 1538) [facility] 77 478: Neurosurgical Physician Assistant/Techni faviola ID = [id number] for Ej vergaraAileen POCT-GLUCOSE [id number] 15:49:19 Test Item Value Reference Range Interpretation Comments POC-GLUCOSE METER 171 mg/dL 70-110 H : TESTED A T [facility] 1317 (BEAKER) (test code [address], = 1538) [facility] 77 478: Neurosurgical Physician Assistant/Techni faviola ID = [id number] for Aileen Loja SARS-CoV2/RT-PCR (Asymptomatic ONLY)2022-01-14 15:42:35 Test Item Value Reference Interpretation Comments Range SARS-COV2/RT-PCR Negative Negative The SARS-Co V-2 (test code = target nucleic 10318-4) acids are not detected in thi s [...] revoked sooner. Fact Sheet for Healthcare Providers: https://www.AppTweak.com/Documents/Xp ert%20Xpress%20SAR S%20CoV-2/Fact%20S heets/3023802%20S ARS-COV-2%20HEALTH CARE%20PROVIDERS%2 0FACT%20SHEET.pdf Fact Sheet for Healthcare Patients: https://www.AppTweak.com/Documents/Xp ert%20Xpress%20SAR S%20CoV-2/Fact%20S heets/3023801%20S ARS-COV-2%20PATIEN T%20FACT%20SHEET.p df Lab Interpretation Normal (test code = 46133-4) [facility]2022-01-14 15:42:35 Test Item Value Reference Interpretation Comments Range SARS-COV2/RT-PCR Negative Negative The SARS-Co V-2 (test code = target nucleic 48403-4) acids are not detected in thi s [...] revoked sooner. Fact Sheet for Healthcare Providers: https://www.AppTweak.com/Documents/Xp ert%20Xpress%20SAR S%20CoV-2/Fact%20S heets/3023802%20S ARS-COV-2%20HEALTH CARE%20PROVIDERS%2 0FACT%20SHEET.pdf Fact Sheet for Healthcare Patients: https://www.AppTweak.com/Documents/Xp ert%20Xpress%20SAR S%20CoV-2/Fact%20S heets/3023801%20S ARS-COV-2%20PATIEN T%20FACT%20SHEET.p df Lab Interpretation Normal (test code = 11941-1) [facility]2022-01-14 15:42:35 Test Item Value Reference Interpretation Comments Range SARS-COV2/RT-PCR Negative Negative The SARS-Co V-2 (test code = target nucleic 57789-6) acids are not detected in thi s [...] revoked sooner. Fact Sheet for Healthcare Providers: https://www.AppTweak.com/Documents/Xp ert%20Xpress%20SAR S%20CoV-2/Fact%20S heets/302-3802%20S ARS-COV-2%20HEALTH CARE%20PROVIDERS%2 0FACT%20SHEET.pdf Fact Sheet for Healthcare Patients: https://www.AppTweak.com/Documents/Xp ert%20Xpress%20SAR S%20CoV-2/Fact%20S heets/302-3801%20S ARS-COV-2%20PATIEN T%20FACT%20SHEET.p df Lab Interpretation Normal (test code = 79507-1) [facility]2022-01-14 15:42:35 Test Item Value Reference Interpretation Comments Range SARS-COV2/RT-PCR Negative Negative The SARS-Co V-2 (test code = target nucleic 09666-4) acids are not detected in thi s [...] revoked sooner. Fact Sheet for Healthcare Providers: https://www.AppTweak.com/Documents/Xp ert%20Xpress%20SAR S%20CoV-2/Fact%20S heets/302-3802%20S ARS-COV-2%20HEALTH CARE%20PROVIDERS%2 0FACT%20SHEET.pdf Fact Sheet for Healthcare Patients: https://www.AppTweak.com/Documents/Xp ert%20Xpress%20SAR S%20CoV-2/Fact%20S heets/302-3801%20S ARS-COV-2%20PATIEN T%20FACT%20SHEET.p df Lab Interpretation Normal (test code = 17135-2) [facility]2022-01-14 15:42:35 Test Item Value Reference Interpretation Comments Range SARS-COV2/RT-PCR Negative Negative The SARS-Co V-2 (test code = target nucleic 94213-7) acids are not detected in thi s [...] revoked sooner. Fact Sheet for Healthcare Providers: https://www.AppTweak.com/Documents/Xp ert%20Xpress%20SAR S%20CoV-2/Fact%20S heets/302-3802%20S ARS-COV-2%20HEALTH CARE%20PROVIDERS%2 0FACT%20SHEET.pdf Fact Sheet for Healthcare Patients: https://www.AppTweak.com/Documents/Xp ert%20Xpress%20SAR S%20CoV-2/Fact%20S heets/302-3801%20S ARS-COV-2%20PATIEN T%20FACT%20SHEET.p df Lab Interpretation Normal (test code = 57802-7) [facility]2022-01-14 15:42:35 Test Item Value Reference Interpretation Comments Range SARS-COV2/RT-PCR Negative Negative The SARS-Co V-2 (test code = target nucleic 51970-7) acids are not detected in thi s [...] revoked sooner. Fact Sheet for Healthcare Providers: [email or web address]://[email or web address]/Documents/Xp ert%20Xpress%20SAR S%20CoV-2/Fact%20S heets/302-3802%20S ARS-COV-2%20HEALTH CARE%20PROVIDERS%2 0FACT%20SHEET.pdf Fact Sheet for Healthcare Patients: [email or web address]://[email or web address]/Documents/Xp ert%20Xpress%20SAR S%20CoV-2/Fact%20S heets/302-3801%20S ARS-COV-2%20PATIEN T%20FACT%20SHEET.p df Lab Interpretation Normal (test code = 46102-3) [facility]2022-01-14 15:42:35 Test Item Value Reference Interpretation Comments Range SARS-COV2/RT-PCR Negative Negative The SARS-Co V-2 (test code = target nucleic 35759-7) acids are not detected in thi s [...] revoked sooner. Fact Sheet for Healthcare Providers: https://[email or web address]/Documents/Xp ert%20Xpress%20SAR S%20CoV-2/Fact%20S heets/302-3802%20S ARS-COV-2%20HEALTH CARE%20PROVIDERS%2 0FACT%20SHEET.pdf Fact Sheet for Healthcare Patients: [email or web address]://[email or web address]/Documents/Xp ert%20Xpress%20SAR S%20CoV-2/Fact%20S heets/302-3801%20S ARS-COV-2%20PATIEN T%20FACT%20SHEET.p df Lab Interpretation Normal (test code = 59525-6) [facility])2022-01-14 15:42:35 Test Item Value Reference Range Interpretation Comments SARS-COV2/RT-PCR Negative Negative The SARS-Co V-2 target (test code = nucleic acids a re not 8253732) detected in thi s specimen. Negative result [...] revoked sooner. Fact Sheet for Healthcare Providers: https://www.[employer] m/Documents/Xpert%20Xpress%20SARS%20CoV-2/Fact%20Sheets/302-3802%14MTYW-SDL-9%20 HEALTHCARE%20PROVIDERS%20FACT%20SHEET.pdf Fact Sheet for Healthcare Patients: https://www.[employer]/Documents/Xpert%20Xp ress%20SARS%20CoV-2/Fact%20Sheets/302-3801%52WFQY-KAG-7%20PATIENT%20FACT%20SHEET .pdfRAD, CHEST, 1 VIEW, NON [id number] 15:02:00Reason for exam:- >SOBShould this be performed at the bedside?->Yes [facility] 1950 Sex: FFINAL [...] MDReport Verified Date/Time: 01/14/2022 15:02:16 Reading Location: [facility] Radiology Reading Room POCT-GLUCOSE [id number] 12:14:41 Test Item Value Reference Range Interpretation Comments POC-GLUCOSE METER 134 mg/dL 70-110 H : TESTED A T [facility] 1317 (BEAKER) (test code [address], = 1538) [facility] 77 478: Neurosurgical Physician Assistant/Techni faviola ID = [id number] for Aileen Loja, CENTRAL VENOUS CATH PLCMT (JUG/FEM) > 5 Y.O. WITH [id number] 11:25:00Reason for exam:->Non tunneled central line placement [facility] LAT[facility]ICIALaly CARSON : 1950 Sex: FFINAL REPORT INSERTION [...] MDReport Verified Date/Time: 01/14/2022 11:25:42 Reading Location: [facility] Radiology Reading Room POCT-GLUCOSE [id number] 08:34:59 Test Item Value Reference Range Interpretation Comments POC-GLUCOSE METER 147 mg/dL 70-110 H : TESTED A T [facility] 1317 (BEAKER) (test code [address], = 1538) [facility] 77 478: Neurosurgical Physician Assistant/Techni faviola ID = [id number] for Aileen Loja BASIC METABOLIC [id number] 06:37:03 Test Item Value Reference Range Interpretation [...] not appl icable for dialysis patien ts Neurosurgical Physician Assistant ID - LITOOperator ID - LITOOperator ID [...] 0-0 (BEAKER) (test code = 413) POCT-GLUCOSE [id number] 19:50:36 Test Item Value Reference Range Interpretation Comments POC-GLUCOSE METER 199 mg/dL 70-110 H : TESTED A T [facility] 1317 (BEAKER) (test code [address], = 1538) [place] [id number]: Neurosurgical Physician Assistant/Techni faviola ID = [id number] for Ina Agrawal POCT-GLUCOSE [id number] 16:52:12 Test Item Value Reference Range Interpretation Comments POC-GLUCOSE METER 150 mg/dL 70-110 H : TESTED A T [facility] [address]17 (BEAKER) (test code [address], = 1538) [place] [id number]: Neurosurgical Physician Assistant/Techni faviola ID = [id number] for Aileen Loja POCT-GLUCOSE [id number] 14:05:10 Test Item Value Reference Range Interpretation Comments POC-GLUCOSE METER 122 mg/dL 70-110 H : TESTED A T [facility] [address]17 (BEAKER) (test code [address], = 1538) [place] [address]: Neurosurgical Physician Assistant/Techni faviola ID = [id number] for Nancy Douglass Blood gas, [id number] 09:06:33 Test Item Value Reference Range Interpretation Comments pH, Arterial (test code 7.45 7.35-7.45 = 2744-1) pCO2, Arterial (test 40 See_Comment [Autom ated message] code = 2019-8) The system [employer] generated this result transmit kenneth reference range : 35 - 45 mm Hg. The reference range was not used to interpret this result as normal/abnormal . pO2, Arterial (test 79 See_Comment L [Automa kenneth message] code = 2703-7) The system [employer] generated this result transmit kenneth reference range [...] 21 Lab Interpretation Abnormal (test code = 27552-9) [facility] [id number] 09:06:33 Test Item Value Reference Range Interpretation Comments pH, Arterial (test code 7.45 7.35-7.45 = 2744-1) pCO2, Arterial (test 40 See_Comment [Autom ated message] code = 2019-) The system [employer] generated this result transmit kenneth reference range : 35 - 45 mm Hg. The reference range was not used to interpret this result as normal/abnormal . pO2, Arterial (test 79 See_Comment L [Automa kenneth message] code = 2703-7) The system [employer] generated this result transmit kenneth reference range [...] 21 Lab Interpretation Abnormal (test code = 96157-2) [facility] gas, [id number] 09:06:33 Test Item Value Reference Range Interpretation Comments pH, Arterial (test code 7.45 7.35-7.45 = 2744-1) pCO2, Arterial (test 40 See_Comment [Autom ated message] code = 2019-8) The system [employer] generated this result transmit kenneth reference range : 35 - 45 mm Hg. The reference range was not used to interpret this result as normal/abnormal . pO2, Arterial (test 79 See_Comment L [Automa kenneth message] code = 2703-7) The system [employer] generated this result transmit kenneth reference range [...] 21 Lab Interpretation Abnormal (test code = 58152-8) [facility] [id number] 09:06:33 Test Item Value Reference Range Interpretation Comments pH, Arterial (test code 7.45 7.35-7.45 = 2744-1) pCO2, Arterial (test 40 See_Comment [Autom ated message] code = 2019-) The system [employer] generated this result transmit kenneth reference range : 35 - 45 mm Hg. The reference range was not used to interpret this result as normal/abnormal . pO2, Arterial (test 79 See_Comment L [Automa kenneth message] code = 2703-7) The system [employer] generated this result transmit kenneth reference range [...] 21 Lab Interpretation Abnormal (test code = 79314-5) [facility] gas, [id number] 09:06:33 Test Item Value Reference Range Interpretation Comments pH, Arterial (test code 7.45 7.35-7.45 = 2744-1) pCO2, Arterial (test 40 See_Comment [Autom ated message] code = 2019-) The system [employer] generated this result transmit kenneth reference range : 35 - 45 mm Hg. The reference range was not used to interpret this result as normal/abnormal . pO2, Arterial (test 79 See_Comment L [Automa kenneth message] code = 2703-7) The system [employer] generated this result transmit kenneth reference range [...] 21 Lab Interpretation Abnormal (test code = 22843-4) [facility] [id number] 09:06:33 Test Item Value Reference Range Interpretation Comments pH, Arterial (test code 7.45 7.35-7.45 = 2744-1) pCO2, Arterial (test 40 See_Comment [Autom ated message] code = 2018-12) The system [employer] generated this result transmit kenneth reference range : 35 - 45 mm Hg. The reference range was not used to interpret this result as normal/abnormal . pO2, Arterial (test 79 See_Comment L [Automa kenneth message] code = 2703-7) The system [employer] generated this result transmit kenneth reference range [...] 21 Lab Interpretation Abnormal (test code = 37523-0) [facility] gas, [id number] 09:06:33 Test Item Value Reference Range Interpretation Comments pH, Arterial (test code 7.45 7.35-7.45 = 2744-1) pCO2, Arterial (test 40 See_Comment [Autom ated message] code = 2019) The system [employer] generated this result transmit kenneth reference range : 35 - 45 mm Hg. The reference range was not used to interpret this result as normal/abnormal . pO2, Arterial (test 79 See_Comment L [Automa kenneth message] code = 2703-7) The system [facility] generated this result transmit kenneth reference range [...] 21 Lab Interpretation Abnormal (test code = 39990-4) [facility] [id number] 09:06:33 Test Item Value Reference Range Interpretation [...] (BEAKER) (test code = 1819) 21.0 POCT-GLUCOSE [id number] 08:36:44 Test Item Value Reference Range Interpretation Comments POC-GLUCOSE METER 132 mg/dL 70-110 H : TESTED A T [facility] 1317 (BEAKER) (test code [facility] [address], = 1538) [facility] 77 478: Neurosurgical Physician Assistant/Techni faviola ID = [id number] for Saeidamber jaiAileen TSH/FREE T4 IF [id number] 08:14:31 Test Item Value Reference Range Interpretation Comments THYROID STIMULATING HORMONE 1.790 uIU/mL 0.350-5.500 (BEAKER) (test code = 772) Neurosurgical Physician Assistant ID - DSENSONCOMPREHENSIVE METABOLIC [id number] 08:04:08 Test Item Value Reference Range Interpretation [...] not appl icable for dialysis patien ts Neurosurgical Physician Assistant ID - DSENSONOperator ID - DSENSONOperator ID - DSENSONOperator ID - DSENSONOperator ID - DSENSONOperator ID - DSENSONOperator ID - DSENSONOperator ID - DSENSONOperator ID - DSENSONOperator ID - DSENSONOperator ID - DSENSONOperator ID - DSENSONOperator ID - DSENSONOperator ID - DSENSONOperatorID - DSENSONOperator ID - DSENSONOperator ID - DSENSONOperator ID - DSENSONOperator ID - DSENSONTROPONIN [id number] 08:03:10 Test Item Value Reference Range Interpretation [...] failure, acidosis, acute neurological disease, and persistent tachyarrhythmia.Neurosurgical Physician Assistant ID - DSENSONCT, BRAIN, WITHOUT [id number] 07:49:00 [facility] : 1950 Sex: [...] 01/13/2022 07:49:20 CBC W/PLT COUNT & AUTO [id number] 07:39:37 Test Item Value Reference Range Interpretation [...] PERCENT (BEAKER) (test code = 2801) POCT-GLUCOSE [id number] 07:15:45 Test Item Value Reference Range Interpretation Comments POC-GLUCOSE METER 127 mg/dL 70-110 H : TESTED A T [facility] 1317 (BEAKER) (test code [facility], = 1538) [place] [id number]: Neurosurgical Physician Assistant/Techni faviola ID = [id number] for Ej griggssulaimanAileen POCT-GLUCOSE [id number] 06:32:48 Test Item Value Reference Range Interpretation Comments POC-GLUCOSE METER 133 mg/dL 70-110 H : TESTED A T [facility] 1317 (BEAKER) (test code [facility], = 1538) [place] [address]: Neurosurgical Physician Assistant/Techni faviola ID = [id number] for Mekhi bi, Libia POCT-GLUCOSE [id number] 21:05:05 Test Item Value Reference Range Interpretation Comments POC-GLUCOSE METER 195 mg/dL 70-110 H : TESTED A T [facility] 1317 (BEAKER) (test code [facility], = 1538) [place] [address]: Neurosurgical Physician Assistant/Techni faviola ID = [id number] for Mekhi bi, Libia POCT-GLUCOSE [id number] 19:32:35 Test Item Value Reference Range Interpretation Comments POC-GLUCOSE METER 180 mg/dL 70-110 H : TESTED A T [facility] 1317 (BEAKER) ([facility] = 1538) [place] [address]: Neurosurgical Physician Assistant/Techni faviola ID = [id number] for [place] ins, Odalys POCT-GLUCOSE [id number] 19:30:16 Test Item Value Reference Range Interpretation Comments POC-GLUCOSE METER 50 mg/dL 70-110 L : TESTED A T [facility] 1317 (BEAKER) (test code = [address], 1538) [facility] 77 478: Neurosurgical Physician Assistant/Techni faviola ID = [id number] for Odalys Castnaeda POCT-GLUCOSE [id number] 18:09:32 Test Item Value Reference Range Interpretation Comments POC-GLUCOSE METER 63 mg/dL 70-110 L : TESTED A T [facility] [address]17 (BEAKER) (test code = [address], 1538) [facility] 77 478: Neurosurgical Physician Assistant/Techni faviola ID = [id number] for Robe Agrawal, TUNNELED CATHETER [id number] 17:04:00Reason for exam:->dialysis catheter with poor flows on dialysis, very positional - please place tunneled dialysis catheter in a new position. [facility] : 1950 Sex: FFINAL REPORT Tunneled dialysis catheter exchange, 01/12/2022. History: Renal failure, poor flow through the existing catheter. Modality: Sonography and fluoroscopy. Sedation: None. Museum Preparator: Mitzy. Mosaic Layer: None. Approach: Internal jugular vein - right. [...] removed and a new 23 cm 15.5 American Duraflow 2 catheter was advanced through the [...] DockeryMDReport Verified Date/Time: 01/12/2022 17:04:33 Reading Location: [facility] Reading Room POCT-GLUCOSE [id number] 12:20:13 Test Item Value Reference Range Interpretation Comments POC-GLUCOSE METER 107 mg/dL 70-110 : [facility] ([place] (test code [facility] [address], = 1538) [place] [address]: Neurosurgical Physician Assistant/Techni faviola ID = [id number] for Will iams, Robe POCT-GLUCOSE [id number] 09:01:23 Test Item Value Reference Range Interpretation Comments POC-GLUCOSE METER 118 mg/dL 70-110 H : TESTED A T [facility] [address]17 (BEAKER) (test code [address], = 1538) [place] [address]: Neurosurgical Physician Assistant/Techni faviola ID = [id number] for Will iams, Robe CBC W/PLT COUNT & AUTO [id number] 06:58:41 Test Item Value Reference Range Interpretation [...] code = 1+ few 961) BASIC METABOLIC [id number] 06:30:57 Test Item Value Reference Range Interpretation [...] not appl icable for dialysis patien ts Neurosurgical Physician Assistant ID - LITOOperator ID - LITOOperator ID - LITOOperator ID - LITOOperator ID - LITOOperator ID - LITOOperator ID - LITOOperator ID - LITOOperator ID - LITOOperator ID - [id number] 06:19:11 Test Item Value Reference Range Interpretation Comments MAGNESIUM (BEAKER) (test code = 1.9 mg/dL 1.5-3.0 627) Neurosurgical Physician Assistant ID - LITOOperator ID - LITOOperator ID - LITOOperator ID - MARTÍN [id number] 06:16:11 Test Item Value Reference Range Interpretation Comments PHOSPHORUS (BEAKER) (test code = 3.4 mg/dL 2.5-4.5 604) Neurosurgical Physician Assistant ID - LITOPROTHROMBIN TIME/[id number] 06:03:04 Test Item Value Reference Range Interpretation Comments PROTIME (BEAKER) 12.4 seconds 9.3-12.0 H Final Infor mation (test code = 759) (Auto Outp ut) INR (BEAKER) (test 1.14 See_Comment Final Inf ormation code = 370) (Auto Output) [Automated mess age] The system [employer] generated this result transmitted ref erence range: <=5.90. The reference range was not used to int erpret this result as normal/abnormal . RECOMMENDED COUMADIN/WARFARIN INR THERAPY RANGESSTANDARD DOSE: 2.0 - 3.0 Includes: PROPHYLAXIS for venous thrombosis, systemic embolization; TREATMENT for venous thrombosis and/or pulmonary embolus.HIGH RISK: Target INR is 2.5-3.5 for patients with mechanical heart valves.[id number] 06:03:04 Test Item Value Reference Range Interpretation Comments PARTIAL THROMBOPLASTIN 29.5 seconds 23.0-35.0 Final Information TIME (BEAKER) (test (Auto Ou tput) code = 760) POCT-GLUCOSE [id number] 20:00:47 Test Item Value Reference Range Interpretation Comments POC-GLUCOSE METER 172 mg/dL 70-110 H : TESTED A T [facility] [address]17 (BEAKER) (test code [address], = 1538) [place] [address]: Neurosurgical Physician Assistant/Techni faviola ID = [id number] for Ina Agrawal POCT-GLUCOSE [id number] 18:09:30 Test Item Value Reference Range Interpretation Comments POC-GLUCOSE METER 121 mg/dL 70-110 H : TESTED A T [facility] [address]17 (BEAKER) (test code [address], = 1538) [place] [address]: Neurosurgical Physician Assistant/Techni faviola ID = [id number] for Will iams, Robe POCT-GLUCOSE [id number] 12:48:21 Test Item Value Reference Range Interpretation Comments POC-GLUCOSE METER 102 mg/dL 70-110 : TESTED A T [facility] [address]17 (BEAKER) (test code [address], = 1538) [place] [address]: Neurosurgical Physician Assistant/Techni faviola ID = [id number] for AvelinoLuz Elena montaguea POCT-GLUCOSE [id number] 08:00:17 Test Item Value Reference Range Interpretation Comments POC-GLUCOSE METER 119 mg/dL 70-110 H : TESTED A T [facility] [address]17 (BEAKER) (test code [address], = 1538) [place] [address]: Neurosurgical Physician Assistant/Techni faviola ID = [id number] for Will iams, Robe POCT-GLUCOSE [id number] 21:28:11 Test Item Value Reference Range Interpretation Comments POC-GLUCOSE METER 227 mg/dL 70-110 H : TESTED A T [facility] [address]17 (BEAKER) (test code [address], = 1538) [place] [address]: Neurosurgical Physician Assistant/Techni faviola ID = [id number] for Libia Pop POCT-GLUCOSE [id number] 15:35:44 Test Item Value Reference Range Interpretation Comments POC-GLUCOSE METER 168 mg/dL 70-110 H : TESTED A T [facility] [address]17 (BEAKER) (test code [address], = 1538) [place] [address]: Neurosurgical Physician Assistant/Techni faviola ID = [id number] for Maribel Jimenez, REPL CVC/TUNNELED W/O [id number] 11:59:00 [facility] LATRICIALaly CARSON : 1950 Sex: FFINAL REPORT PROCEDURE: [...] a permanent image was stored. Catheter size (American): 15.5Catheter flush: Heparin (100 units/mL) Abbie sureThe [...] MDReport Verified Date/Time: 01/10/2022 11:59:48 Reading Location: [facility] Radiology Reading Room POCT-GLUCOSE [id number] 11:32:33 Test Item Value Reference Range Interpretation Comments POC-GLUCOSE METER 105 mg/dL 70-110 : TESTED A T [facility] 1317 (BEAKER) (test code [facility] [address], = 1538) [facility] 77 [address]: Neurosurgical Physician Assistant/Techni faviola ID = [id number] for Anne jamshid Maribel BASIC METABOLIC [id number] 04:51:32 Test Item Value Reference Range Interpretation [...] not appl icable for dialysis patien ts Neurosurgical Physician Assistant ID - LITOOperator ID - LITOOperator ID - LITOOperator ID - LITOOperator ID - LITOOperator ID - LITOOperator ID - LITOOperator ID - LITOOperator ID - LITOOperator ID - [id number] 04:50:58 Test Item Value Reference Range Interpretation Comments MAGNESIUM (BEAKER) (test code = 2.0 mg/dL 1.5-3.0 627) Neurosurgical Physician Assistant ID - LITOOperator ID - LITOOperator ID - LITOOperator ID - MARTÍN [id number] 04:48:19 Test Item Value Reference Range Interpretation Comments PHOSPHORUS (BEAKER) (test code = 3.9 mg/dL 2.5-4.5 604) Neurosurgical Physician Assistant ID - [id number] 04:44:00 Test Item Value Reference Range Interpretation Comments PARTIAL THROMBOPLASTIN 51.7 seconds 23.0-35.0 H Final Information TIME (BEAKER) (test (Auto Ou tput) code = 760) CBC W/PLT COUNT & AUTO [id number] 04:24:30 Test Item Value Reference Range Interpretation [...] PERCENT (BEAKER) (test code = 2801) POCT-GLUCOSE [id number] 21:26:47 Test Item Value Reference Range Interpretation Comments POC-GLUCOSE METER 127 mg/dL 70-110 H : TESTED A T [facility] (BEAKER) (test code [address], = 1538) [facility] 77 [address]: Neurosurgical Physician Assistant/Techni faviola ID = [id number] for Libia Pop [id number] 20:08:11 Test Item Value Reference Range Interpretation Comments PARTIAL THROMBOPLASTIN 41.3 seconds 23.0-35.0 H Final Information TIME (BEAKER) (test (Auto Ou tput) code = 760) POCT-GLUCOSE [id number] 17:14:06 Test Item Value Reference Range Interpretation Comments POC-GLUCOSE METER 154 mg/dL 70-110 H : TESTED A T [facility] [address] (BEAKER) (test code [address], = 1538) [place] [address]: Neurosurgical Physician Assistant/Techni faviola ID = [id number] for Aileen Loja POCT-GLUCOSE [id number] 11:55:38 Test Item Value Reference Range Interpretation Comments POC-GLUCOSE METER 153 mg/dL 70-110 H : TESTED A T [facility] [address]17 (BEAKER) (test code [address], = 1538) [place] [address]: Neurosurgical Physician Assistant/Techni faviola ID = [id number] for Anne breen Maribel HEPATITIS B SURFACE [id number] 11:29:52 Test Item Value Reference Range Interpretation Comments HEPATITIS B SURFACE ANTIBODY 53.8 mIU/mL <8.0 H (BEAKER) (test code = 647) Neurosurgical Physician Assistant ID - [id number] 10:04:36 Test Item Value Reference Range Interpretation Comments PARTIAL THROMBOPLASTIN 36.3 seconds 23.0-35.0 H Final Information TIME (BEAKER) (test (Auto Ou tput) code = 760) POCT-GLUCOSE [id number] 07:31:03 Test Item Value Reference Range Interpretation Comments POC-GLUCOSE METER 111 mg/dL 70-110 H : TESTED A T [facility] [address] (BEAKER) (test code [address], = 1538) [place] [address]: Neurosurgical Physician Assistant/Techni faviola ID = [id number] for Buff ord, Maribel [id number] 06:13:46 Test Item Value Reference Range Interpretation Comments MAGNESIUM (BEAKER) (test code = 1.8 mg/dL 1.5-3.0 627) Neurosurgical Physician Assistant ID - [id number] ID - [id number] ID - YYRTHPCWZ788Gfdojuyn ID - [id number] METABOLIC [id number] 06:12:49 Test Item Value Reference Range Interpretation [...] not appl icable for dialysis patien ts Neurosurgical Physician Assistant ID - [id number] ID - [id number] ID - NDKGBXZHN638Uxymvhot ID - PHEDXOSJZ347Kmlyykam ID - YFIUYUZYC901Yuvbvjvg ID - UIHRLJAEL460Meuqdzcl ID - WALABWCKT467Junlveto ID - VGJOZTHBX727Mznxktog ID - SCARKBLVX633Prsyxjuu ID - [id number] 06:10:51 Test Item Value Reference Range Interpretation Comments PHOSPHORUS (BEAKER) (test code = 3.0 mg/dL 2.5-4.5 604) Neurosurgical Physician Assistant ID - [id number] W/PLT COUNT & AUTO [id number] 05:49:35 Test Item Value Reference Range Interpretation [...] PERCENT (BEAKER) (test code = 2801) POCT-GLUCOSE [id number] 05:17:03 Test Item Value Reference Range Interpretation Comments POC-GLUCOSE METER 108 mg/dL 70-110 : TESTED A T [facility] [address] (BEAKER) (test code [address], = 1538) [place] [address]: Neurosurgical Physician Assistant/Techni faviola ID = [id number] for esperanza Abraham [id number] 01:14:37 Test Item Value Reference Range Interpretation Comments PARTIAL THROMBOPLASTIN 37.5 seconds 23.0-35.0 H Final Information TIME (BEAKER) (test (Auto Ou tput) code = 760) HEPATITIS B SURFACE [id number] 18:36:43 Test Item Value Reference Range Interpretation Comments HEPATITIS B SURFACE ANTIGEN (2) Nonreactive Nonreactive (BEAKER) (test code = 2585) Neurosurgical Physician Assistant ID - [id number]-OFCUMXL [id number] 17:00:29 Test Item Value Reference Range Interpretation Comments POC-GLUCOSE METER 131 mg/dL 70-110 H : TESTED A T [facility] (BEAKER) [facility]38[facility] [place] [address]: Neurosurgical Physician Assistant/Techni faviola ID = [id number] for Migel Holt [id number] 16:38:44 Test Item Value Reference Range Interpretation Comments PARTIAL THROMBOPLASTIN 42.5 seconds 23.0-35.0 H Final Information TIME (BEAKER) (test (Auto Ou tput) code = 760) POCT-GLUCOSE [id number] 12:29:39 Test Item Value Reference Range Interpretation Comments POC-GLUCOSE METER 168 mg/dL 70-110 H : TESTED A T [facility] [address] (BEAKER) (test code [address], = 1538) [place] [address]: Neurosurgical Physician Assistant/Techni faviola ID = [id number] for Migel Holt POCT-GLUCOSE [id number] 08:10:36 Test Item Value Reference Range Interpretation Comments POC-GLUCOSE METER 136 mg/dL 70-110 H : TESTED A T [facility] [address] (BEAKER) (test code [address], = 1538) [place] [address]: Neurosurgical Physician Assistant/Techni faviola ID = [id number] for Migel Holt BASIC METABOLIC [id number] 06:18:43 Test Item Value Reference Range Interpretation [...] not appl icable for dialysis patien ts Neurosurgical Physician Assistant ID - LITOOperator ID - LITOOperator ID - LITOOperator ID - LITOOperator ID - LITOOperator ID - LITOOperator ID - LITOOperator ID - LITOOperator ID - LITOOperator ID - [id number] 06:17:29 Test Item Value Reference Range Interpretation Comments MAGNESIUM (BEAKER) (test code = 1.6 mg/dL 1.5-3.0 627) Neurosurgical Physician Assistant ID - LITOOperator ID - LITOOperator ID - LITOOperator ID - MARTÍN HEMOGLOBIN [id number] 06:16:10 Test Item Value Reference Range Interpretation Comments HEMOGLOBIN A1C (BEAKER) (test code = 8.5 % 4.3-6.1 H 368) Neurosurgical Physician Assistant ID - [id number] 06:14:08 Test Item Value Reference Range Interpretation Comments PHOSPHORUS (BEAKER) (test code = 5.0 mg/dL 2.5-4.5 H 604) Neurosurgical Physician Assistant ID - [id number] 05:59:43 Test Item Value Reference Range Interpretation Comments PARTIAL THROMBOPLASTIN 45.4 seconds 23.0-35.0 H Final Information TIME (BEAKER) (test (Auto Ou tput) code = 760) CBC W/PLT COUNT & AUTO [id number] 05:48:29 Test Item Value Reference Range Interpretation [...] H PERCENT (BEAKER) (test code = 2801) [id number] 21:22:07 Test Item Value Reference Range Interpretation Comments PARTIAL THROMBOPLASTIN 26.5 seconds 23.0-35.0 Final Information TIME (BEAKER) (test (Auto Ou tput) code = 760) POCT-GLUCOSE [id number] 21:12:37 Test Item Value Reference Range Interpretation Comments POC-GLUCOSE METER 136 mg/dL 70-110 H : TESTED A T SLSL 1317 (BEAKER) (test code [facility] [address], = 1538) [facility] 77 478: Neurosurgical Physician Assistant/Techni faviola ID = [id number] for esperanza Abraham POC [id number] 16:00:00 Test Item Value Reference Range Interpretation Comments POC glucose (test code = 158 mg/dL 65-99 H Ope rator Name: [id number]) Bob tilley ID: [id number] Lab Interpretation (test Abnormal code = 80022-4) [facility] [id number] 16:00:00 Test Item Value Reference Range Interpretation Comments POC glucose (test code = 158 mg/dL 65-99 H Ope rator Name: [id number]) Bob tilley ID: [id number] Lab Interpretation (test Abnormal code = 21121-1) [facility] [id number] 15:05:25 Test Item Value Reference Range Interpretation Comments Case number (test code = [id number]) Surgical pathology See link below for report (test code = PDF Lab Report 2255) Result status (test code This is Final Report = [id number]) [id number] [facility] [id number] 15:05:25 Test Item Value Reference Range Interpretation Comments Case number (test code = [id number]) Surgical pathology See link below for report (test code = PDF Lab Report 2255) Result status (test code This is Final Report = [id number]) for [id number] [facility] 12 [id number] 12:23:18 Test Item Value Reference Range Interpretation [...] 12-AUG-2021 06:02,-No significant change was found- [address]2022-04-20 12:23:18 Test Item Value Reference Range [...] of 12-AUG-2021 06:02,-No significant change was found- [facility] ED Preliminary Interpretation - Not an [id number] 21:23:51 Test Item Value Reference Range Interpretation Comments VALERIANO (test code = VALERIANO) Marley Cronin NP-C 09/07/2021 9:29 [facility] ED Preliminary Interpretation - Not an OrderPerformed by: Marley Cronin NP-CAuthorized by: Trinidad Menard MD ECG reviewed by ED Physician in the absence of a national flatbed truck driver: no Previous ECG: Previous ECG: UnavailableInterpretat ion: Interpretation: abnormal Rate: ECG rate: 80 ECG rate assessment: normal Rhythm: Rhythm: paced Pacing: Type of pacing: VentricularEctopy: Ectopy: none QRS: QRS axis: Normal QRS intervals: NormalConduction: Conduction: normal ST segments: ST segments: Normal Lab Interpretation Abnormal (test code = 22644-3) [facility] ED Preliminary Interpretation - Not an [id number] 21:23:51 Test Item Value Reference Range Interpretation Comments VALERIANO (test code = VALERIANO) Marley Cronin NP-C 09/07/2021 9:29 [facility] Preliminary Interpretation - Not an OrderPerformed by: Marley Cronin NP-CAuthorized by: Trinidad Menard MD ECG reviewed by ED Physician in the absence of a national flatbed truck driver: no Previous ECG: Previous ECG: UnavailableInterpretat ion: Interpretation: abnormal Rate: ECG rate: 80 ECG rate assessment: normal Rhythm: Rhythm: paced Pacing: Type of pacing: VentricularEctopy: Ectopy: none QRS: QRS axis: Normal QRS intervals: NormalConduction: Conduction: normal ST segments: ST segments: Normal Lab Interpretation Abnormal (test code = 68654-0) [facility] RNA [Presence] in Respiratory specimen by LANG with probe [id number] 13:39:12 Test Item Value Reference Range Interpretation Comments SARS-CoV-2 (COVID-19) RNA Not detected [Presence] in Respiratory specimen by LANG with probe detection (test code = 83272-7) Whether patient is employed in a Unknown healthcare setting (test code = 58093-4) Whether the patient has symptoms Unknown related to condition of interest (test code = 89208-0) Whether the patient was Unknown hospitalized for condition of interest (test code = 87533-1) Whether the patient was admitted Unknown to intensive care unit (ICU) for condition of interest (test code = 23522-0) Whether patient resides in a Unknown congregate care setting (test code = 70414-3) status (test code = Unknown 33045-0) Date and time of symptom onset Unknown (test code = 13400-5) [facility] myocardial [id number] 02:36:07 Test Item Value Reference Range Interpretation Comments Target HR (test code 148.00 bpm = 1941479102) Resting HR (test 83 BPM code = 4592983177) Resting BP (test 178/79 mmHg code = 8226067970) Percent HR (test 54.05 % code = 5764295944) Post Peak HR (test 80 bpm code = 9801972229) Post Peak BP (test 161/77 mmHg code = 1459808114) Radiology Study observation (narrative) (test code = 90970-0) VALERIANO (test code = Study Quality: good. [...] left ventricle ejection fraction is mildly reduced. [facility] stress [id number] 22:06:40 Test Item Value Reference Range Interpretation Comments Resting BP (test code = 3900457163) Protocol Name (test LEXISCAN code = 8044563678) Time in Exercise 00:01:00 Phase (test code = 4015004441) Max Systolic BP (test code = 4453154245) Max Diastolic BP (test code = 7977423669) Max Heart Rate (test code = 9236339266) Max Predicted Heart Rate (test code = 0499508228) Test Indication (test code = 7007490870) Arrhy During Ex (test code = 2596313155) ECG Interp Before EX (test code = 7536534099) ECG Interp During Ex (test code = 6864328323) Ex Summary Comment (test code = 4292338732) Overall HR Response to Exercise (test code = 9183308674) Overall BP Response To Exercise (test code = 2091342129) Reason for Termination (test code = 4955432417) Stress Test Waveform interpreted in Impression (test code report associated with = 0513299948) image study. No interpretation is provided as part of this Stress ECG report.-Electronically Signed By Adam HOLLIDAY [facility] ([id number]), publishing editor Daysi Chapman ([id number]) on 08/02/2021 5:06:37 PM [facility] stress [id number] 22:06:40 Test Item Value Reference Range Interpretation Comments Resting BP (test code = 2537428334) Protocol Name (test LEXISCAN code = 7827948949) Time in Exercise 00:01:00 Phase (test code = 2512333729) Max Systolic BP (test 178 code = 1941306846) Max Diastolic BP 79 (test code = 0034313943) Max Heart Rate (test 81 code = 3303912350) Max Predicted Heart 148 Rate (test code = 0572049692) Test Indication (test code = 9556400299) Arrhy During Ex (test code = 2278069997) ECG Interp Before EX (test code = 1960674129) ECG Interp During Ex (test code = 5983605305) Ex Summary Comment (test code = 3652244613) Overall HR Response to Exercise (test code = 9563049662) Overall BP Response To Exercise (test code = 6443580249) Reason for Termination (test code = 9790675441) Stress Test Waveform interpreted in Impression (test code report associated with = 6568527126) image study. No interpretation is provided as part of this Stress ECG report.-Electronically Signed By Adam HOLLIDAY, [facility] ([id number]), publishing editor Daysi Chapman ([id number]) on 08/02/2021 5:06:37 PM [facility], (w Contrast, Strain and 3D if needed)2021-08-01 17:44:46 Test Item Value Reference Range Interpretation Comments AoV Area, Vmax (test 2.41 cm2 code = 9637806056) AoV Area, VTI (test 2.36 cm2 code = 1778190126) AoV Mean PG (test 5.59 mmHg code = 5804718890) AoV Peak PG (test 11.08 mmHg code = 3513785503) AoV Vmax (test code 1.77 m/s = 6409543856) AoV VTI (test code = 0.30 m 0334140250) IVS,d (test code = 1.11 cm 1531119363) LV,d (test code = 5.57 cm 6372440770) LV EF,A2C (test code 44.91 % = 8785989716) LV EF,A4C (test code 42.43 % = 7859666843) LV EF,BP (test code 42.76 % = 3892671884) Santana Deforest,d A2C (test 7.79 cm code = 1754841015) Santana Deforest,d A4C (test 7.59 cm code = 8105602175) Santana Deforest,s A2C (test 7.10 cm code = 1556686989) Santana Deforest,s A4C (test 6.58 cm code = 0430955290) LV,s (test code = 4.42 cm 8342487589) LV SV,A2C (test code 59.18 % = 2378294403) LV SV,A4C (test code 64.42 % = 5956460514) LV Vol,d A2C (test 131.77 mL code = 7774361349) LV Vol,d A4C (test 151.81 ml code = 1044784264) LV Vol,d BP (test 142.79 ml code = 2366386163) LV Vol,s A2C (test 72.60 mL code = 2216246200) LV Vol,s A4C (test 87.39 ml code = 6555788105) LV Vol,s BP (test 81.72 nl code = 8554669983) LVOT Diam,S (test 2.08 cm code = 8796426550) LVOT Vmax (test code 1.16 m/s = 5940521241) LVOT VTI (test code 0.21 m = 5487519278) LVPWD,d (test code = 1.05 cm 5765388655) TR Vpeak (test code 2.66 mm/s = 4791910427) AR Press Half Time 504.65 ms (test code = 7943282099) TR pk grad (test 27.27 mmHg code = 7058268900) MR Vmax (test code = 6.10 m/s 2260408184) MR peak grad (test 121.70 mmHg code = 7965589918) E wave decelartion 149.68 msec time (test code = 6972321321) MV Peak E Des (test 1.46 m/s code = 6592766976) LVOT stroke volume 0.71 cm3 (test code = 1390026623) AV LVOT peak 5.36 mmHg gradient (test code = 8466502858) LV SYS VOL (test 88.60 ml code = 8087333715) LV THOMPSON VOL (test 151.60 ml code = 9906054895) LA area s A4C (test 35.87 cm2 code = 5566515703) LV SV Teich 2D (test 63.00 ml code = 8179867686) LVOT SI (test code = 38.28 ml/m2 4116738360) AoV Cusp sep (test 1.72 code = 6071890541) AoV Vmn (test code = 1.10 0019774970) IVS s 2D (test code 1.72 = 6109765385) AR slope (test code 2.59 = 0038520568) Ar Vmax (test code = 3.99 6184698746) LA Ao Ratio Mmode 2.07 (test code = 8380964831) LVOT Vmn (test code 0.80 = 0215977966) Pt Size (test code = 162.56 9429629446) Pt Wt (test code = 81.19 2783317608) PV AT (test code = 94.20 msec 4279255595) LVOT mean grad (test 2.88 mmHg code = 9702217870) AR DT (test code = 1541.52 msec 1824100965) AR pk grad (test 58.41 mmHg code = 9567650826) LVPW s PLAX (test 1.41 cm code = 1522669239) MV Decel slope (test 9.79 m/s2 code = 1211570018) LA Vol MOD A4C (test 124.31 ml code = 6493258284) Velocity Ratio 0.66 m/s (V1/V2) (test code = 4689) EF (test code = 41.56 % 9205874297) LVOT area (test code 3.40 cm2 = 6060387020) LVOT VTI (CM) (test 21.00 cm code = 4434096639) RA pressure (test 15.00 mmHg code = 0429930835) LA Vol 4C (test code 124.00 ml = 2284408738) RVSP (test code = 43.38 mmHg 3342689044) LA diam s (test code 5.50 cm = 7161866846) Aortic Root (test 2.63 cm code = 3226493416) MT End Thompson Grad 11.73 (test code = 6747309469) MT End Diat Des 1.71 (test code = 8316572136) AR maxPG (test code 63.74 = 2406422408) D E excurs (test 2.00 code = 5371651296) E f slope (test code 0.08 = 8775575224) E prime lat (test 0.06 code = 9238443653) E keaton sept (test 0.09 code = 7205554144) PV acc T slope (test 6.80 code = 4738928527) CONDE BP EF (test 43.00 % code = 4686050336) LA VOL 2C (test code 138.00 ml = 5829093764) VALERIANO (test code = The left ventricle [...] of aortic valve stenosis.PericardiumNo pericardial effusion seen. [facility] NndmgbvuCZBR-KeE-4 (COVID-19) RNA [Presence] in Respiratory specimen by LANG with probe [id number] 23:11:03 Test Item Value Reference Range Interpretation Comments SARS-CoV-2 (COVID-19) RNA Not detected [Presence] in Respiratory specimen by LANG with probe detection (test code = 88419-6) Whether patient is employed in a Unknown healthcare setting (test code = 40641-1) Whether the patient has symptoms Unknown related to condition of interest (test code = 93758-9) Whether the patient was Unknown hospitalized for condition of interest (test code = 95463-7) Whether the patient was admitted Unknown to intensive care unit (ICU) for condition of interest (test code = 45982-5) Whether patient resides in a Unknown congregate care setting (test code = 42132-8) status (test code = Unknown 59858-8) Date and time of symptom onset Unknown (test code = 51424-4) [facility]-CoV-2 (COVID-19) RNA [Presence] in Respiratory specimen by LANG with probe [id number] 11:45:59 Test Item Value Reference Range Interpretation Comments SARS-CoV-2 (COVID-19) RNA Not detected Not-Detected [Presence] in Respiratory specimen by LANG with probe detection (test code = 92905-9) Whether patient is employed in a healthcare setting (test code = 96889-9) Whether the patient has symptoms related to condition of interest (test code = 87754-7) Patient was hospitalized because of this condition (test code = 35832-9) Whether the patient was admitted to intensive care unit (ICU) for condition of interest (test code = 08171-2) Whether patient resides in a congregate care setting (test code = 74648-0) [facility]-CoV-2 (COVID-19) RNA [Presence] in Respiratory specimen by LANG with probe [id number] 05:28:15 Test Item Value Reference Range Interpretation Comments SARS-CoV-2 (COVID-19) RNA Not detected Not-Detected [Presence] in Respiratory specimen by LANG with probe detection (test code = 80175-3) [facility] RNA [Presence] in Respiratory specimen by LANG with probe [id number] 23:52:31 Test Item Value Reference Range Interpretation Comments SARS-CoV-2 (COVID-19) RNA Not detected Not-Detected [Presence] in Respiratory specimen by LANG with probe detection (test code = 86992-8) [facility] Notes Date/Time Note Provider Source 2022-01-09 12:30:04-00:00 NATACHA SCHULZ [facility] CONSULTATION LATRICIA LUBIN FACILITY: [facility] Billing #: [id number] Room: [address] [place] [address] MR #: [id number] : 1950 DATE OF ADMISSION: 01/07/2022 DATE OF CONSULTATION: 01/09/2022 REQUESTING PHYSICIAN: INSPECTOR SHEET [employer]S: Natacha Schulz MD SUBJECTIVE: Ms. Latricia Lubin [...] this done for her al ambrosio. DEVI/MODL /[id number]
[2022-12-29 12:07] LABS: Protime INR 2.55
--- NOTE | 2022-12-29 12:20 | RAD REPORT ---
EXAM DESCRIPTION: RAD - Chest Single View - 12/29/2022 12:10 pm CLINICAL HISTORY: AMS Chest pain. COMPARISON: Chest Single View dated 12/23/2022; Chest Single View dated 11/22/2022; Chest Single View da kenneth 11/16/2022; Chest Single View dated 10/06/2022 FINDINGS: Portable technique limits examination quality. Mild interstitial pulmonary edema. The heart is significantly enlarged. No displaced fractures.Multi lead pacer device is present. IMPRESSION: Mild CHF.
[2022-12-29 12:25] LABS: AST/SGOT 6 U/L (15-37); Albumin 2.4 g/dL (3.4-5.0); Alkaline Phosphatase 111 U/L (45-117); BUN Blood Urea Nitrogen 33 mg/dL (7-18); Bicarbonate 22 mEq/L (21-32); Bilirubin Total 0.7 mg/dL (0.2-1.0); Glomerular Filtration Rate 11 ml/min (=/>90); Glucose Level 163 mg/dL (74-106); Potassium 3.9 mEq/L (3.5-5.1); Protein, Total 6.9 g/dL (6.4-8.2); Sodium Level 135 mEq/L (136-145)
[2022-12-29 12:27] LABS: ALT/SGPT < 10 U/L (13-56)
--- NOTE | 2022-12-29 12:38 | EDPHYS ---
Physician Documentation [facility] Name: Latricia Cadet Age: 72 yrs Sex: Female : 1950 Arrival Date: 12/29/2022 Time: 11:11 Bed 8 Private MD: ED Physician Allison Diop HPI: 12/29 11:22 This 72 yrs old Female presents to ER via Unassigned with complaints of Altered Mental sp3 Status. 11:22 72-year-old female with history of diabetes, hypertension, end-stage renal disease, sp3 rheumatoid arthritis presents to the ED via EMS for chief complaint altered mental status again today during dialysis. Per dialysis center, patient arrived and was placed on dialysis and immediately started deteriorating in responsiveness. EMS was activated and they brought her here to the ED. She does answer to voice but otherwise is somnolent. Review of systems is limited secondary to this, dementia as is the history and physical.. Historical: - Allergies: 11:25 Codeine; ss - PMHx: 11:25 angina pectoris; Hypertension; dialysis T, TH, Sat.; kidney disease; insomnia; heart ss attack; Diabetes - NIDDM; COPD; CHF; Rheumatoid Arthritis; Sleep Apnea; - PSHx: 11:25 HD Fistula - Right arm; hysterectomy; pacemaker; ss - Immunization history:: Adult Immunizations up to date. - Social history:: Smoking status: Patient denies any tobacco usage or history of. ROS: 11:23 Unable to obtain ROS due to altered mental status, baseline dementia. sp3 Exam: 11:23 Chest/axilla: Normal chest wall appearance and motion. Nontender with no deformity. sp3 No lesions are appreciated. Cardiovascular: Regular rate and rhythm with a normal S1 and S2. No gallops, murmurs, or rubs. Normal PMI, no JVD. No pulse deficits. Abdomen/GI: Soft, non-tender, with normal bowel sounds. No distension or tympany. No guarding or rebound. No evidence of tenderness throughout. Skin: Warm, dry with normal turgor. Normal color with no rashes, no lesions, and no evidence of cellulitis. 11:23 ECG was reviewed by the Attending Physician. Ventricularly paced rhythm at 90 bpm with adequate capture Vital Signs: 11:20 BP 157 / 62; Pulse 80; Resp 15; Temp 98.6(O); Pulse Ox 100% on R/A; ss 13:15 BP 100 / 69; Pulse 80; Resp 18; Temp 98.9(R); Pulse Ox 99% ; ko1 15:00 BP 132 / 54; Pulse 80; Resp 16; Pulse Ox 100% ; ko1 MDM: 11:17 Patient medically screened. sp3 11:25 Data reviewed: vital signs, nurses notes, EMS record, old medical records, lab test sp3 result(s), EKG, radiologic studies. ED course: 72-year-old female who resides in a fdc presents from dialysis for altered mental status. Differential diagnosis is broad and includes UTI, sepsis, ACS, neurological or other cardiovascular insult, among others. Will obtain CT scan, EKG, laboratory values including digoxin level, chest x-ray and [place]atham assess patient for potential sepsis or other pathology. Disposition pending workup and patient course.. 12:35 ED course: Patient has flu AMB positive swabs, mild CHF on chest x-ray lactate of 2.2. sp3 Will slowly hydrate and admit for supportive care. Troponin is elevated and we will trend that out in the setting of elevated creatinine.. 12/29 11:19 Order name: Blood Culture Adult (2) sp3 12/29 11:19 Order name: CBC with Diff sp3 12/29 11:19 Order name: CMP; Complete Time: 12:30 sp3 12/29 11:19 Order name: Lactate w/ 2H reflex if indic.; Complete Time: 12:30 sp3 12/29 11:19 Order name: Protime (+inr); Complete Time: 12:30 sp3 12/29 11:19 Order name: Urinalysis w/ reflexes sp3 12/29 11:19 Order name: Troponin High Sensitivity; Complete Time: 12:30 sp3 12/29 11:19 Order name: Flu; Complete Time: 12:30 sp3 12/29 11:22 Order name: Digoxin sp3 12/29 12:09 Order name: Glucose, Ancillary Testing; Complete Time: 12:30 EDMS 12/29 12:14 Order name: SARS-COV-2 RT PCR EDMS 12/29 13:07 Order name: Urinalysis w/ reflexes EDMS 12/29 13:07 Order name: CBC with Automated Diff EDMS 12/29 13:07 Order name: CBC with Automated Diff EDMS 12/29 13:07 Order name: Comprehensive Metabolic Panel EDMS 12/29 13:07 Order name: Comprehensive Metabolic Panel EDMS 12/29 13:07 Order name: Magnesium EDMS 12/29 13:07 Order name: Magnesium EDMS 12/29 13:07 Order name: Phosphorus EDMS 12/29 13:07 Order name: Phosphorus EDMS 12/29 13:07 Order name: Troponin High Sensitivity EDMS 12/29 13:07 Order name: Troponin High Sensitivity EDMS 12/29 13:07 Order name: Troponin High Sensitivity EDMS 12/29 11:19 Order name: Chest Single View XRAY; Complete Time: 12:30 sp3 12/29 11:19 Order name: EKG; Complete Time: 11:20 sp3 12/29 13:06 Order name: CONS Physician Consult EDMS 12/29 13:06 Order name: Renal EDMS 12/29 11:19 Order name: Accucheck; Complete Time: 11:57 sp3 12/29 11:19 Order name: Cardiac monitoring; Complete Time: 11:52 sp3 12/29 11:19 Order name: EKG - Nurse/Tech; Complete Time: 12:21 sp3 12/29 11:19 Order name: IV Saline Lock - Large Bore; Complete Time: 11:52 sp3 12/29 11:19 Order name: Labs collected and sent; Complete Time: 11:57 sp3 12/29 11:19 Order name: O2 Per Protocol; Complete Time: 11:52 sp3 12/29 11:19 Order name: O2 Sat Monitoring; Complete Time: 11:52 sp3 12/29 11:19 Order name: Vital Signs; Complete Time: 11:52 sp3 12/29 11:19 Order name: Rectal Temp; Complete Time: 12:21 sp3 Administered Medications: No medications were administered Disposition Summary: 12/29/22 12:37 Hospitalization Ordered Hospitalization Status: Observation sp3 Provider: Jarrod Leiva sp3 Location: Telemetry/MedSurg (observation) sp3 Condition: Stable sp3 Problem: new sp3 Symptoms: have worsened sp3 Bed/Room Type: Standard sp3 Room Assignment: 426(12/29/22 14:39) eb Diagnosis - Influenza A, influenza B, dehydration, lactic acidosis, elevated troponin sp3 Forms: - Medication Reconciliation Form sp3 - SBAR form sp3 Signatures: Dispatcher [employer] EDNM Leela Dominguez, RN RN Sakshi Quintana Setul, MD MD sp3 Aline Ibarra RN RN ko1 Corrections: (The following items were deleted from the chart) 11:28 11:25 ED course: 72-year-old female who resides in a fdc presents from sp3 dialysis for altered mental status. Differential diagnosis is broad and includes UTI, sepsis, ACS, neurological or other cardiovascular insult, among others. Will obtain CT scan, EKG, laboratory values including digoxin level, chest x-ray and [place]atham assess patient for potential. sp3 12:14 11:20 SARS-COV-2 Antigen Rapid+I.LAB.BRZ ordered. [facility] EDNM 14:39 12:37 sp3
--- NOTE | 2022-12-29 12:38 | ER ---
Nurse's Notes [facility] Name: Latricia Cadet Age: 72 yrs Sex: Female : 1950 Arrival Date: 12/29/2022 Time: 11:11 Bed 8 Private MD: Diagnosis: Influenza A, influenza B, dehydration, lactic acidosis, elevated troponin Presentation: 12/29 11:20 Chief complaint: EMS states: Called to [facility] dialysis for Low 02 and AMS. Pt is ss drowsy, oriented x 1. Unknown baseline, last seen normal. Dialysis staff states that patient "arrived like this." EMS reports that upon arrival, O2 was 98% on RA. Coronavirus screen: Client denies travel out of the [place] in the last 14 days. Ebola Screen: Patient denies exposure to infectious person. Patient denies travel to an Ebola-affected area in the 21 days before illness onset. Initial Sepsis Screen: Does the patient meet any 2 criteria? No. Patient's initial sepsis screen is negative. Does the patient have a suspected source of infection? No. Patient's initial sepsis screen is negative. Risk Assessment: Do you want to hurt yourself or someone else? Patient reports no desire to harm self or others. Onset of symptoms is unknown. 11:20 Method Of Arrival: EMS: [facility] 11:20 Acuity: JAKE 3 ss Historical: - Allergies: 11:25 Codeine; ss - PMHx: 11:25 angina pectoris; Hypertension; dialysis T, TH, Sat.; kidney disease; insomnia; heart ss attack; Diabetes - NIDDM; COPD; CHF; Rheumatoid Arthritis; Sleep Apnea; - PSHx: 11:25 HD Fistula - Right arm; hysterectomy; pacemaker; ss - Immunization history:: Adult Immunizations up to date. - Social history:: Smoking status: Patient denies any tobacco usage or history of. Screenin:15 [facility] ED Fall Risk Assessment (Adult) History of falling in the last 3 months, ko1 including since admission No falls in past 3 months (0 pts) Confusion or Disorientation Yes (5 pts) Intoxicated or Sedated No (0 pts) Impaired Gait Yes (1 pt) Mobility Assist Device Used Yes (1 pt) Altered Elimination Yes (1 pt) Score/Fall Risk Level 3 or more points = High Risk Oriented to surroundings, Maintained a safe environment, Educated pt \\T\\ family on fall prevention, incl call for assistance when getting out of bed, Assessed \\T\\ reinforced patient's understanding of fall precautions, Provided non-skid footwear, Hourly rounding (assess needs \\T\\ fall precautionary measures) done, Used ambulatory aids as needed (educated on \\T\\ assisted with), Used gait belt as appropriate Implemented a Fall Risk Plan of Care, Apply high fall risk patient identification: yellow non skid footwear/ fall signage, Remained with patient while ambulating. Abuse screen: Denies threats or abuse. Denies injuries from another. Nutritional screening: No deficits noted. Tuberculosis screening: No symptoms or risk factors identified. Assessment: 11:30 General: Appears in no apparent distress. uncomfortable, ill, Behavior is calm, ko1 cooperative, appropriate for age. Pain: Denies pain. Neuro: Level of Consciousness is awake, alert, confused. Cardiovascular: Patient's skin is warm and dry. Rhythm is ventricular pacer. Respiratory: No deficits noted. Respiratory:. Respiratory: Sputum is thick, yellow. GI: No deficits noted. : on dialysis. EENT: No deficits noted. Derm: No deficits noted. Musculoskeletal: No deficits noted. Vital Signs: 11:20 BP 157 / 62; Pulse 80; Resp 15; Temp 98.6(O); Pulse Ox 100% on R/A; ss 13:15 BP 100 / 69; Pulse 80; Resp 18; Temp 98.9(R); Pulse Ox 99% ; ko1 15:00 BP 132 / 54; Pulse 80; Resp 16; Pulse Ox 100% ; ko1 ED Course: 11:16 Patient arrived in ED. ko1 11:17 Allison Diop MD is Attending Physician. sp3 11:17 Aline Ibarra, JUAN R is Primary Nurse. ko1 11:25 Triage completed. ss 11:25 Arm band placed on right wrist. ss 11:58 CBC with Diff Sent. ko1 11:58 CMP Sent. ko1 11:58 Protime (+inr) Sent. ko1 11:58 Lactate w/ 2H reflex if indic. Sent. ko1 11:58 Troponin High Sensitivity Sent. ko1 11:58 Digoxin Sent. ko1 12:02 Flu Sent. ko1 12:12 Chest Single View XRAY In Process Unspecified. EDMS 12:37 Jarrod Leiva MD is Hospitalizing Provider. sp3 13:15 Patient has correct armband on for positive identification. Fall risk band placed. ko1 Placed in gown. Bed in low position. Call light in reach. Side rails up X2. Provided Education on: na. Client placed on continuous cardiac and pulse oximetry monitoring. NIBP monitoring applied. fixed capital clerk on. Door closed. Noise minimized. Warm blanket given. 13:15 Maintain EMS IV. Dressing intact. Good blood return noted. Site clean \\T\\ dry. Gauge \\T\\ ko 1 site: 20g L wrist. 15:00 No provider procedures requiring assistance completed. Patient admitted, IV remains in ko1 place. Administered Medications: No medications were administered Medication: 15:00 VIS not applicable for this client. ko1 Outcome: 12:37 Decision to Hospitalize by Provider. sp3 15:00 Admitted to Med/surg accompanied by tech, via stretcher, room 426, with chart, Report ko1 called to JUAN R Sandhu 15:00 Condition: stable 15:00 Instructed on the need for admit, Demonstrated understanding of instructions, follow-up care. 15:11 Patient left the ED. ko1 Signatures: Dispatcher [employer] EDMS Leela Dominguez, JUAN R RN ss Allison Diop MD MD sp3 Aline Ibarra RN RN ko1 Corrections: (The following items were deleted from the chart) 12:14 12:03 SARS-COV-2 Antigen Rapid+I.LAB.BRZ drawn and sent. ko1 EDMS
[2022-12-29 12:41] LABS: Absolute Lymphocytes (CBC) 1.3 K/uL (0.7-4.9); Hematocrit 37.2 % (36.0-45.0); Lymphocytes % 6.1 % (15.3-44.8); MCV 85.5 fL (80-100); MPV 7.3 fL (7.6-11.3); Platelets 332 thou/uL (152-406); RBC Red Blood Cell Count 4.35 M/uL (3.86-4.86)
[2022-12-29] MEDS ORDERED: ACETAMINOPHEN 500 MG TAB PO PRN (13:01)
[2022-12-29] MEDS ORDERED: ONDANSETRON 4 MG/2 ML VIAL IV PRN (13:01)
--- NOTE | 2022-12-29 13:07 | P.HP ---
Certification for Inpatient Patient admitted to: Inpatient With expected LOS: >2 Midnights Patient will require the following post-hospital care: None Practitioner: I am a practitioner with admitting privileges, knowledge of patient current condition, hospital course, and medical plan of care. Services: Services provided to patient in accordance with Admission requirements found in Title 42 Section 412.3 of the Code of Federal Regulations Patient History Date of Service: 12/29/22 Reason for admission: Leukocytosis; altered mental status History of Present Illness: Patient is a 72yo who was admitted to the hospital with leukocytosis. Patient has a history of coronary artery disease with recent stent placement to the right coronary artery along with end-stage renal disease who presents to the hospital with altered mental status and leukocytosis. Patient is feeling weak and not like herself so they presented to the emergency room. Patient was recently discharged from the hospital and patient had chest pain and found to have a non-STEMI with stent placement to the right coronary artery. Continue with aspirin and Plavix. Continue monitoring pulmonary status. Patient's flu test was positive. Patient will be started on Tamiflu. Patient will be admitted for further evaluation. Allergies No Known Allergies Allergy (Verified 01/02/22 02:33) Home Medications: Sevelamer Carbonate [Renvela*] 2 tab PO TIDWM 01/02/22 Midodrine HCl 5 mg PO BID 07/19/22 Escitalopram [Lexapro*] 10 mg PO BEDTIME 12/24/22 Isosorbide Mononitrate [Isosorbide Mononitrate ER] 60 mg PO DAILY 12/24/22 Acetaminophen [Tylenol*] 650 mg PO Q4HP PRN 12/29/22 Calcitrol [Rocaltrol*] 0.5 mcg PO SEECOM 12/29/22 Doxazosin [Cardura*] 4 mg PO DAILY 12/29/22 Furosemide [Lasix*] 80 mg PO DAILY 12/29/22 Pantoprazole [Protonix Tab*] 40 mg PO DAILY 12/29/22 Pramipexole [Mirapex*] 0.25 mg PO BEDTIME 12/29/22 - Past Medical/Surgical History Diabetic: Yes -: Diabetes mellitus type 2-insulin dependent -: Rheumatoid arthritis -: Hypertension -: Hyperlipidemia -: Chronic congestive heart failure-unknown EF -: ESRD on HD -: CAD -: History of DVT/PE -: L ankle fusion -: hysterectomy -: Dialysis catheter placement and removal -: Cholecystectomy -: pacemaker/defibrillator Psychosocial/ Personal History: Patient lives with her - Family History Father Family History: Reviewed- Non-Contributory - Social History Smoking Status: Former smoker Alcohol use: No CD- Drugs: No Caffeine use: Yes Review of Systems 10-point ROS is otherwise unremarkable Physical Examination - Vital Signs Temperature: 98 F Blood Pressure: 140/80 Pulse: 80 Respirations: 18 Pulse Ox (%): 95 - Physical Exam General: Alert, In no apparent distress, Oriented x2, Demented, Confused HEENT: Atraumatic, PERRLA, Mucous membr. moist/pink, EOMI, Sclerae nonicteric Neck: Supple, 2+ carotid pulse no bruit, No LAD, Without JVD or thyroid abnormality Respiratory: Diminished Cardiovascular: Regular rate/rhythm, Normal S1 S2, Systolic murmur Gastrointestinal: Normal bowel sounds, Soft and benign, Non-distended, No tenderness Musculoskeletal: No clubbing, No swelling, No tenderness Integumentary: No rashes Neurological: Normal speech, Sensation intact, Cranial nerves 3-12 intact, Abnormal gait, Abnormal strength, Abnormal affect Lymphatics: No axilla or inguinal lymphadenopathy - Studies Laboratory Data (last 24 hrs) 12/29/22 12/29/22 12/29/22 12:30 11:53 11:53 WBC 20.60 H Hgb 11.6 L Hct 37.2 Plt Count 332 PT 28.0 H INR 2.55 Sodium 135 L Potassium 3.9 BUN 33 H Creatinine 4.14 H Glucose 163 H Total Bilirubin 0.7 AST 6 L ALT < 10 L Alkaline Phosphatase 111 Microbiology Data (last 24 hrs): 12/29/22 12:00 Nasopharnyx Influenza Type A Antigen Screen - Final 12/29/22 12:00 Nasopharnyx Influenza Type B Antigen Screen - Final Assessment & Plan - Problems (Diagnosis) (1) AMS (altered mental status) Current Visit: Yes Status: Acute (2) UTI (urinary tract infection) Current Visit: No Status: Acute Qualifiers: Qualified Code(s): N30.01 - Acute cystitis with hematuria (3) Weakness Current Visit: No Status: Acute (4) COPD (chronic obstructive pulmonary disease) Current Visit: No Status: Chronic Qualifiers: (5) ESRD (end stage renal disease) Current Visit: No Status: Chronic (6) Influenza Current Visit: Yes Status: Acute (7) Coronary artery disease Current Visit: No Status: Chronic Qualifiers: Coronary Disease-Associated Artery/Lesion type: [place] artery [place] vs. transplanted heart: [place] heart Associated angina: without angina Qualified Code(s): I25.10 - Atherosclerotic heart disease of [place] coronary artery without angina pectoris (8) Diabetes Current Visit: No Status: Chronic Qualifiers: Diabetes mellitus type: type 2 Diabetes mellitus prison insulin use: without assistant terminal manager use Diabetes mellitus complication status: with hyperglycemia Qualified Code(s): E11.65 - Type 2 diabetes mellitus with hyperglycemia - Plan Plan: 1. Continue with IV antibiotics and antiviral therapy 2. Awaiting culture 3. Repeat chest x-ray 4. Monitor neuro status 5. Consult nephrology for dialysis 6. Continue with nebs as needed 7. O2 per protocol 8. Resume antiplatelet therapy for coronary artery disease 9. Repeat labs 10. GI and DVT prophylaxis Discharge Plan: Senior Care Plan to discharge in: Greater than 2 days - Advance Directives Does patient have a Living Will: No Does patient have a Durable POA for Healthcare: Yes - Code Status/Comfort Care Code Status Assessed: Yes Code Status: Full Code Critical Care: No Time Spent Managing PTS Care (In Minutes): 45
[2022-12-29] MEDS: LINEZOLID 600 MG IVPB 600 MG/300 ML BAG IV SCH ×2 (14:00→20:42)
[2022-12-29] MEDS ORDERED: VANCOMYCIN 1 GM in NA CHLORIDE 0.9% 250 ML IVPB SCH (14:00)
[2022-12-29] MEDS: HEPARIN 5000 UNIT/ML 1 ML VIAL SQ SCH (20:42)
[2022-12-30 06:41] LABS: Absolute Lymphocytes (CBC) 1.2 K/uL (0.7-4.9); Lymphocytes % 6.1 % (15.3-44.8); MCV 85.4 fL (80-100); MPV 7.7 fL (7.6-11.3); Platelets 305 thou/uL (152-406); RBC Red Blood Cell Count 4.33 M/uL (3.86-4.86)
[2022-12-30 07:00] LABS: AST/SGOT 6 U/L (15-37); Albumin 2.1 g/dL (3.4-5.0); Alkaline Phosphatase 102 U/L (45-117); BUN Blood Urea Nitrogen 37 mg/dL (7-18); Bicarbonate 23 mEq/L (21-32); Bilirubin Total 0.7 mg/dL (0.2-1.0); Glomerular Filtration Rate 10 ml/min (=/>90); Glucose Level 145 mg/dL (74-106); Magnesium 2.1 mg/dL (1.6-2.4); Phosphorus 4.1 mg/dL (2.5-4.9); Potassium 3.9 mEq/L (3.5-5.1); Protein, Total 6.2 g/dL (6.4-8.2); Sodium Level 136 mEq/L (136-145)
[2022-12-30 07:14] LABS: ALT/SGPT < 10 U/L (13-56)
[2022-12-30] MEDS: HEPARIN 5000 UNIT/ML 1 ML VIAL SQ SCH ×2 (09:00→20:46)
[2022-12-30] MEDS: LINEZOLID 600 MG IVPB 600 MG/300 ML BAG IV SCH ×2 (09:30→20:44)
[2022-12-30] MEDS ORDERED: ACETAMINOPHEN 325 MG TABLET PO PRN (09:56)
[2022-12-30] MEDS ORDERED: OSELTAMIVIR 30 MG CAP PO ONE (11:00)
--- NOTE | 2022-12-30 11:43 | P.PN ---
(S) Pt known to me from recent consultation, see my recent consult note on the last admission for details. Pt re-admitted with flu and leukocytosis and reports of AMS and while she is lethargic this AM, she is conversive. She is refusing HD due to some complaints of pain but is not wanting to stop HD and states "she hopes to do dialysis tmrw." (O) Vitals reviewed in the EMR General: In no apparent distress, elderly, chronically ill appearing HEENT: Atraumatic, Normocephalic Neck: Supple Respiratory: Non tachypnec, poor effort, no rhonchi Cardiovascular: No edema, Regular rate/rhythm, Normal S1 S2, upper chest PPM Gastrointestinal: Soft and benign, Non-distended, No tenderness Musculoskeletal: No swelling, No tenderness, Other (Rt UE AVF with thrill and bruit) Integumentary: No rashes Neurological: Awake, Normal speech, Normal tone, Other (Flat affect) Conclusions/Impression: A/P) 1. ESRD 2nd to presumed HTN/DM on HD for several years per reports, will need to clarify when her last HD was but overall metab profile and volume status acceptable despite missed HD. Pt does not agree to HD today but also states that she does not want to permanently discontinue dialysis, HD tmrw if pt agreeable. 2. Chest pain unspecified recently -mild troponin leak in the setting of her ESRD and other. Will defer to primary team to further assess and manage 3. Positive influenza without overt PNA -cont renally dosed Tamiflu with 30 mg once and repeat dose following next HD 4. Abnormal findings in urine, pyuria, recurrent cystitis, asymptomatic currently. Vanc resistance Enterococcus F, defer to IM team to assess and treat, consult with ID if needed 5. MDD per history and pt acknowledged depression symptoms in the past, recomme nd SW reviewing PHQ-9 with pt and will defer to primary team to adjust her medications/other. Ti Glover MD, AZRA
[2022-12-30] MEDS: SEVELAMER CARBONATE 800 MG TABLET PO SCH ×2 (12:44→16:30)
[2022-12-30] MEDS: AMINO ACIDS/PROTEIN HYDROLYS 30 ML LIQUID.PKT PO SCH (20:46)
[2022-12-30] MEDS: ESCITALOPRAM 20 MG TAB PO SCH (20:46)
[2022-12-30] MEDS: PRAMIPEXOLE 0.25 MG TAB PO SCH (22:09)
[2022-12-30] MEDS: MIDODRINE HCL 5 MG TABLET PO SCH (22:09)
[2022-12-31] MEDS: AMINO ACIDS/PROTEIN HYDROLYS 30 ML LIQUID.PKT PO SCH ×2 (09:00→21:00)
[2022-12-31] MEDS: PANTOPRAZOLE 40MG TABLET PO SCH (09:22)
[2022-12-31] MEDS: FUROSEMIDE 40 MG TABLET PO SCH (09:22)
[2022-12-31] MEDS: SEVELAMER CARBONATE 800 MG TABLET PO SCH ×3 (09:22→17:00)
[2022-12-31] MEDS: LINEZOLID 600 MG IVPB 600 MG/300 ML BAG IV SCH ×2 (09:22→22:13)
[2022-12-31] MEDS: MIDODRINE HCL 5 MG TABLET PO SCH ×2 (09:22→22:12)
[2022-12-31] MEDS: ISOSORBIDE MONO SR 60 MG TAB PO SCH (09:22)
[2022-12-31] MEDS: HEPARIN 5000 UNIT/ML 1 ML VIAL SQ SCH ×2 (09:23→22:12)
[2022-12-31 12:18] LABS: Absolute Lymphocytes (CBC) 1.1 K/uL (0.7-4.9); Hematocrit 39.7 % (36.0-45.0); Lymphocytes % 6.5 % (15.3-44.8); MCV 85.4 fL (80-100); MPV 7.6 fL (7.6-11.3); Platelets 201 thou/uL (152-406); RBC Red Blood Cell Count 4.65 M/uL (3.86-4.86)
[2022-12-31 12:37] LABS: Blood Morphology Comment NOT SEEN (NOT SEEN); Platelet Estimate ADEQ; White Blood Cell Scan OK (OK)
[2022-12-31 12:57] LABS: Potassium 3.9 mEq/L (3.5-5.1)
[2022-12-31] MEDS ORDERED: OSELTAMIVIR 30 MG CAP PO SCH (18:00)
--- NOTE | 2022-12-31 21:27 | P.PN ---
Date of Service: 12/31/22 Vital Signs Temp Pulse Resp BP Pulse Ox 96.9 F 80 14 111/55 L 98 12/31/22 16:00 12/31/22 16:00 12/31/22 16:00 12/31/22 16:00 12/31/22 16:00 Medications Acetaminophen (Acetaminophen 500 Mg Tab) 500 mg PO Q4HP PRN PRN Reason: T>101*F Last Admin: 12/31/22 12:24 Dose: 500 mg Acetaminophen (Acetaminophen 325 Mg Tablet) 650 mg PO Q4HP PRN PRN Reason: pain Amino Acids (Amino Acids/Protein Hydrolys 30 Ml Liquid.Pkt) 30 ml PO BID [facility] Last Admin: 12/31/22 09:00 Dose: 30 ml Calcitriol (Calcitrol 0.25 Mcg Cap) 0.5 mcg PO MoWeFr@0900 [facility] Escitalopram Oxalate (Escitalopram 20 Mg Tab) 10 mg PO BEDTIME [facility] Last Admin: 12/30/22 20:46 Dose: 10 mg Furosemide (Furosemide 40 Mg Tablet) 80 mg PO DAILY [facility] Last Admin: 12/31/22 09:22 Dose: 80 mg Heparin Sodium (Porcine) (Heparin 5000 Unit/Ml 1 Ml Vial) 5,000 unit SQ Q12HR BRIAN Last Admin: 12/31/22 09:23 Dose: 5,000 unit Linezolid (Zyvox 600 Mg/300 Ml Ivpb (Premix)) 600 mg in 300 mls @ 300 mls/hr IV Q12HR BRIAN Last Admin: 12/31/22 09:22 Dose: 300 mls Isosorbide Mononitrate (Isosorbide Thomas Sr 60 Mg Tab) 60 mg PO DAILY BRIAN Last Admin: 12/31/22 09:22 Dose: 60 mg Midodrine (Midodrine Hcl 5 Mg Tablet) 5 mg PO BID [facility] Last Admin: 12/31/22 09:22 Dose: 5 mg Ondansetron HCl (Ondansetron 4 Mg/2 Ml Vial) 4 mg IV Q6HP PRN PRN Reason: NAUSEA / VOMITING Oseltamivir Phosphate (Oseltamivir 30 Mg Cap) 30 mg PO EVERY HD [facility] Pantoprazole Sodium (Pantoprazole 40mg Tablet) 40 mg PO DAILY [facility]; Protocol Last Admin: 12/31/22 09:22 Dose: 40 mg Pramipexole Dihydrochloride (Pramipexole 0.25 Mg Tab) 0.25 mg PO BEDTIME [facility] Last Admin: 12/30/22 22:09 Dose: 0.25 mg Sevelamer Carbonate (Sevelamer Carbonate 800 Mg Tablet) 1,600 mg PO TIDWM [facility] Last Admin: 12/31/22 17:00 Dose: Not Given Sodium Chloride (Flush Normal Saline 10 Ml) 10 ml IV BID [facility] Last Admin: 12/31/22 09:23 Dose: 10 ml Microbiology Results 12/29/22 12:00 Nasopharnyx Influenza Type A Antigen Screen - Final 12/29/22 12:00 Nasopharnyx Influenza Type B Antigen Screen - Final Assessment/ Plan: Nephrology No dyspnea No chest pain Weakness and fatigue No acute events overnight Limited IH/ ROS due to minimal conversation Vitals, medications, blood work and imaging reviewed in the chart. NAD. NCAT. MMM. Neck supple. Normal respiratory effort. RRR. Abd ND. No C/C. LE [place]. No rash. Awake. Normal speech. ESRD on HD -HD TIW Chronic Hypotension -Continue Midodrine Diastolic CHF, chronic -Low sodium diet -Daily weight -HD with UF DM II with CKD -No sugar diet Anemia in CKD -Retacrit prn CKD MBD -Continue Renvela and Calcitriol Hospitalist note reviewed
[2022-12-31] MEDS: OSELTAMIVIR 30 MG CAP PO SCH (22:00)
[2022-12-31] MEDS: ESCITALOPRAM 20 MG TAB PO SCH (22:12)
[2022-12-31] MEDS: PRAMIPEXOLE 0.25 MG TAB PO SCH (22:13)
[2023-01-01 07:30] LABS: Absolute Lymphocytes (CBC) 1.3 K/uL (0.7-4.9); Hematocrit 38.9 % (36.0-45.0); MCV 85.2 fL (80-100); MPV 7.6 fL (7.6-11.3); Platelets 306 thou/uL (152-406); RBC Red Blood Cell Count 4.56 M/uL (3.86-4.86)
[2023-01-01 07:33] LABS: Potassium 3.7 mEq/L (3.5-5.1)
[2023-01-01] MEDS: MIDODRINE HCL 5 MG TABLET PO SCH ×2 (09:00→21:19)
[2023-01-01] MEDS: AMINO ACIDS/PROTEIN HYDROLYS 30 ML LIQUID.PKT PO SCH ×2 (09:00→21:00)
[2023-01-01] MEDS: ISOSORBIDE MONO SR 60 MG TAB PO SCH (09:14)
[2023-01-01] MEDS: SEVELAMER CARBONATE 800 MG TABLET PO SCH ×3 (09:14→16:32)
[2023-01-01] MEDS: HEPARIN 5000 UNIT/ML 1 ML VIAL SQ SCH ×2 (09:14→21:19)
[2023-01-01] MEDS: LINEZOLID 600 MG IVPB 600 MG/300 ML BAG IV SCH ×2 (09:14→21:00)
[2023-01-01] MEDS: FUROSEMIDE 40 MG TABLET PO SCH (09:15)
[2023-01-01] MEDS: PANTOPRAZOLE 40MG TABLET PO SCH (09:16)
--- NOTE | 2023-01-01 15:36 | EKG ---
Test Date: 2022-12-29 Test Time: 12:16:17 Production Control Expert: SHASHI MEASUREMENT RESULTS: Intervals: Rate: 80 CA: QRSD: 146 QT: 458 QTc: 528 Pearson: P: 72 CA: QRS: -73 T: 74 INTERPRETIVE STATEMENTS: Suspect unspecified pacemaker failure Ventricular-paced rhythm Abnormal ECG Compared to ECG 12/25/2022 05:14:00 Atrial flutter no longer present Left-axis deviation no longer present Right bundle-branch block no longer present Myocardial infarct finding no longer present Electronically Signed On 01-01-23 15:32:32 CDT by Lico Wilkins
[2023-01-01] MEDS ORDERED: ASPIRIN EC 81 MG TAB PO ONE (17:35)
[2023-01-01] MEDS ORDERED: CLOPIDOGREL 75 MG TABLET PO ONE (17:35)
--- NOTE | 2023-01-01 17:41 | P.PN ---
Subjective Date of Service: 12/30/22 Subjective: No new changes, No C/O voiced Patient was not eating so we had to feed her. She needs a pured diet. Continue with Tamiflu therapy for 5 days. Hemodialysis per nephrology. Continue antiplatelet therapy. Review of Systems 10-point ROS is otherwise unremarkable Physical Examination - Vital Signs Temperature: 98 F Blood Pressure: 140/80 Pulse: 80 Respirations: 18 Pulse Ox (%): 95 - Physical Exam General: Alert, In no apparent distress HEENT: Atraumatic, PERRLA, EOMI Neck: Supple, JVD not distended Respiratory: Clear to auscultation bilaterally, Normal air movement Cardiovascular: Regular rate/rhythm, Normal S1 S2 Gastrointestinal: Normal bowel sounds, No tenderness Musculoskeletal: No tenderness Integumentary: No rashes Neurological: Normal speech, Normal tone, Normal affect Lymphatics: No axilla or inguinal lymphadenopathy - Studies Medications List Reviewed: Yes Assessment & Plan - Problems (Diagnosis) (1) AMS (altered mental status) Current Visit: Yes Status: Acute (2) UTI (urinary tract infection) Current Visit: No Status: Acute Qualifiers: (3) Weakness Current Visit: No Status: Acute (4) COPD (chronic obstructive pulmonary disease) Current Visit: No Status: Chronic Qualifiers: (5) ESRD (end stage renal disease) Current Visit: No Status: Chronic (6) Influenza Current Visit: Yes Status: Acute (7) Coronary artery disease Current Visit: No Status: Chronic Qualifiers: Coronary Disease-Associated Artery/Lesion type: [place] artery [place] vs. transplanted heart: [place] heart Associated angina: without angina Qualified Code(s): I25.10 - Atherosclerotic heart disease of [place] coronary artery without angina pectoris (8) Diabetes Current Visit: No Status: Chronic Qualifiers: Diabetes mellitus type: type 2 Diabetes mellitus nursing home insulin use: without met[place] use Diabetes mellitus complication status: with hyperglycemia Qualified Code(s): E11.65 - Type 2 diabetes mellitus with hyperglycemia - Plan Plan: Continue with plan of care as mentioned below: 1. Continue with antiviral therapy 2. Awaiting culture; so far these are negative 3. Chest x-ray with minimal infiltrates 4. Monitor neuro status; feed with asst 5. Consult nephrology for dialysis 6. Continue with nebs as needed 7. O2 per protocol 8. Resume antiplatelet therapy for coronary artery disease 9. Repeat labs 10. GI and DVT prophylaxis Discharge Plan: Halfway Plan to discharge in: Greater than 2 days - Advance Directives Does patient have a Living Will: No Does patient have a Durable POA for Healthcare: Yes - Code Status/Comfort Care Code Status: Full Code Critical Care: No Time Spent Managing PTS Care (In Minutes): 30
--- NOTE | 2023-01-01 17:42 | P.PN ---
Date of Service: 12/31/22 Subjective Subjective: Patient was not eating so we had to feed her. She needs a pured diet. Continue with Tamiflu therapy for 5 days. Hemodialysis per nephrology. Continue antiplatelet therapy. Review of Systems 10-point ROS is otherwise unremarkable Physical Examination - Vital Signs revewed - Physical Exam General: Alert, In no apparent distress Respiratory: Clear to auscultation bilaterally, Normal air movement Cardiovascular: Regular rate/rhythm, Normal S1 S2 Gastrointestinal: Normal bowel sounds, No tenderness Neurological: generalized weakness; Assessment & Plan - Problems (Diagnosis) (1) AMS (altered mental status) Current Visit: Yes Status: Acute (2) UTI (urinary tract infection) Current Visit: No Status: Acute Qualifiers: (3) Weakness Current Visit: No Status: Acute (4) COPD (chronic obstructive pulmonary disease) Current Visit: No Status: Chronic Qualifiers: (5) ESRD (end stage renal disease) Current Visit: No Status: Chronic (6) Influenza Current Visit: Yes Status: Acute (7) Coronary artery disease Current Visit: No Status: Chronic Qualifiers: Coronary Disease-Associated Artery/Lesion type: [place] artery [place] vs. 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 Continue with antiviral therapy 2. Awaiting culture; so far these are negative 3. Chest x-ray with minimal infiltrates 4. Monitor neuro status; feed with asst 5. Consult nephrology for dialysis 6. Continue with nebs as needed 7. O2 per protocol 8. Resume antiplatelet therapy for coronary artery disease 9. Repeat labs 10. GI and DVT prophylaxis Discharge Plan: Halfway Plan to discharge in: Greater than 2 days - Advance Directives Does patient have a Living Will: No Does patient have a Durable POA for Healthcare: Yes - Code Status/Comfort Care Code Status: Full Code Critical Care: No Time Spent Managing PTS Care (In Minutes): 30
[2023-01-01] MEDS: ESCITALOPRAM 20 MG TAB PO SCH (21:18)
[2023-01-01] MEDS: PRAMIPEXOLE 0.25 MG TAB PO SCH (21:18)
--- NOTE | 2023-01-02 05:32 | P.PN ---
Date of Service: 01/01/23 Subjective Subjective: Patient is clinically doing better. Patient did not denies any new complaints. She is generally weak and her long-term prognosis is poor. I did speak to her sister and family. Hopefully after treatment of the fluid she does improve. Recent cardiac intervention. Possible discharge to [facility] over the next 48 hours if she continues to show improvement. Hemodialysis today to remove 2 L of fluid. Review of Systems 10-point ROS is otherwise unremarkable Physical Examination - Vital Signs revewed - Physical Exam General: Alert, In no apparent distress; lethargic Respiratory: Clear to auscultation bilaterally, Normal air movement Cardiovascular: Regular rate/rhythm, Normal S1 S2 Gastrointestinal: Normal bowel sounds, No tenderness Neurological: generalized weakness; Assessment & Plan - Problems (Diagnosis) (1) AMS (altered mental status) Current Visit: Yes Status: Acute (2) UTI (urinary tract infection) Current Visit: No Status: Acute (3) Weakness Current Visit: No Status: Acute (4) COPD (chronic obstructive pulmonary disease) Current Visit: No Status: Chronic (5) ESRD (end stage renal disease) Current Visit: No Status: Chronic (6) Influenza Current Visit: Yes Status: Acute (7) Coronary artery disease Current Visit: No Status: Chronic Coronary Disease-Associated Artery/Lesion type: [place] artery [place] vs. transplanted heart: [place] heart Associated angina: without angina Qualified Code(s): I25.10 - Atherosclerotic heart disease of [place] coronary artery without angina pectoris (8) Diabetes Current Visit: No Status: Chronic Diabetes mellitus type: type 2 Diabetes mellitus jail insulin use: without jail use Diabetes mellitus complication status: with hyperglycemia Qualified Code(s): E11.65 - Type 2 diabetes mellitus with hyperglycemia - Plan Continue with plan of care as mentioned below: 1. Continue with antiviral therapy 2. Awaiting culture; so far these are negative; Most likely can DC antibiotic therapy 3. Chest x-ray with minimal infiltrates; chest x-ray is pending 4. Monitor neuro status; feed with asst 5. Dialyzed today and 2 L of fluid removed 6. Continue with nebs as needed 7. O2 per protocol 8. Resume antiplatelet therapy for coronary artery disease s/p stents 9. Repeat labs 10. Strict blood sugar control and monitor blood pressure closely 11. GI and DVT prophylaxis Discharge Plan: Care Home Plan to discharge in: Greater than 2 days - Advance Directives Does patient have a Living Will: No Does patient have a Durable POA for Healthcare: Yes - Code Status/Comfort Care Code Status: Full Code Critical Care: No Time Spent Managing PTS Care (In Minutes): 30
[2023-01-02 07:21] LABS: Absolute Lymphocytes (CBC) 1.6 K/uL (0.7-4.9); Hematocrit 36.9 % (36.0-45.0); Lymphocytes % 24.1 % (15.3-44.8); MCV 85.1 fL (80-100); MPV 7.3 fL (7.6-11.3); Platelets 282 thou/uL (152-406); RBC Red Blood Cell Count 4.33 M/uL (3.86-4.86)
--- NOTE | 2023-01-02 07:34 | RAD REPORT ---
EXAM DESCRIPTION: RADChest Single View01/02/2023 5:16 am CLINICAL HISTORY: pneumonia COMPARISON: Chest Single View dated 12/29/2022; Chest Single View dated 12/23/2022; Chest Single View d ated 11/22/2022; Chest Single View dated 11/16/2022 TECHNIQUE: Portable AP view of the chest. FINDINGS: Moderate progressive central congestion. Left basilar/retrocardiac airspace opacification, progressive, could relate to atelectasis or developing airspace disease. No pneumothorax. There may be a small left pleural effusion. The mediastinal contours are unremarkable. Marked cardiomegaly. Lef t chest wall pacer/AICD in place. IMPRESSION: Findings suggestive of CHF. Left basilar/retrocardiac airspace opacity may relate to atelectasis or developing airspace disease.
[2023-01-02 07:51] LABS: ALT/SGPT < 10 U/L (13-56); AST/SGOT 6 U/L (15-37); Albumin 2.2 g/dL (3.4-5.0); Alkaline Phosphatase 106 U/L (45-117); BUN Blood Urea Nitrogen 31 mg/dL (7-18); Bicarbonate 23 mEq/L (21-32); Bilirubin Total 0.6 mg/dL (0.2-1.0); Glomerular Filtration Rate 12 ml/min (=/>90); Glucose Level 113 mg/dL (74-106); NT PRO-BNP > 35000 pg/mL (<125); Phosphorus 3.6 mg/dL (2.5-4.9); Potassium 3.6 mEq/L (3.5-5.1); Protein, Total 6.4 g/dL (6.4-8.2); Sodium Level 134 mEq/L (136-145)
[2023-01-02] MEDS: AMINO ACIDS/PROTEIN HYDROLYS 30 ML LIQUID.PKT PO SCH ×2 (09:00→21:00)
[2023-01-02] MEDS: MIDODRINE HCL 5 MG TABLET PO SCH (09:00)
[2023-01-02] MEDS ORDERED: CALCITROL 0.25 MCG CAP PO SCH (09:00)
--- NOTE | 2023-01-02 09:06 | P.PN ---
Subjective Date of Service: 01/02/23 Chief Complaint: Leukocytosis; altered mental status No acute events overnight. She reports that she feels that her symptoms are improving. She denies any chest pain or shortness of breath. She reports generalized weakness. Review of Systems 10-point ROS is otherwise unremarkable General: Weakness (generalized) Physical Examination - Vital Signs Temperature: 97.3 F Blood Pressure: 134/55 Pulse: 79 Respirations: 18 Pulse Ox (%): 100 - Physical Exam General: Alert, In no apparent distress, Oriented x3 HEENT: Atraumatic, Mucous membr. moist/pink, Sclerae nonicteric Neck: JVD not distended Respiratory: Diminished, Crackles/rales (bibasilar) Cardiovascular: Regular rate/rhythm, Normal S1 S2, No gallops, No rubs, No murmurs, Edema (1+ BLE) Gastrointestinal: Normal bowel sounds, Soft and benign, Non-distended, No tenderness, No rebound, No guarding Musculoskeletal: No clubbing Integumentary: No rashes Neurological: Normal speech, Normal affect - Studies Medications List Reviewed: Yes Assessment And Plan - Plan # Severe Viral Sepsis suspect secondary to Influenza Infection with concern for Superimposed Bacterial Pneumonia # Acute Toxic Metabolic Encephalopathy likely due to above - resolved # History of Vancomycin-Resistant Enterococcus Faecium UTI She met SIRS criteria based on HR > 90 bpm, RR > 20 breaths/min, and WBC > 12,000 and the suspected source is pulmonary. Severe sepsis is suspected due to concern for tissue hypoperfusion/organ dysfunction based on coagulopathy (INR > 1.5) and lactic acid > 2 mmol/L. - Consult Infectious Diseases - recommendations appreciated - Sepsis order set was initiated - Lactate trend was 2.2 -> 1.9 - Procalcitonin 3.35 - Chest x-ray (01/02) = "findings suggestive of CHF. Left basilar/retrocardiac airspace opacity may relate to atelectasis or developing airspace disease." - Blood cultures drawn: 05/25 positive for CoNS. Repeat today - Broad spectrum antibiotics started: Linezolid, added ceftriaxone - Continue oseltamivir - In regards to fluids: - 30 mL/kg of IV fluids was not administered given SBP > 90, MAP > 65, lactic acid < 4 # Acute on Chronic Decompensated Congestive Heart Failure with Preserved Ejection Fraction - Consult Cardiology - recommendations appreciated - Transthoracic echocardiogram (01/06/2022) = "normal left ventricular ejection fraction 55-60%. normal wall motion. 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
--- NOTE | 2023-01-02 10:09 | RAD REPORT ---
EXAM DESCRIPTION: CT - Thorax Wo Luis - 01/02/2023 9:36 am CLINICAL HISTORY: PNA? COMPARISON: Chest Single View dated 12/29/2022; Chest Single View dated 01/02/2023 TECHNIQUE: Axial thin cut images of the chest were obtained without IV contrast. Multiplanar reforma ts were generated and reviewed. All CT scans are performed using dose optimization technique as appropriate and may include automated exposure control or mA/KV adjustment according to patient size. FINDINGS: No suspicious masses in the lungs. Subtle dependent lower lobe ground-glass opacities, wit h platelike atelectatic changes as well as subsegmental dependent atelectasis in the left lower lobe. Mild central interstitial prominence. No pleural thickening. Trace left pleural effusion. No pneumot horax. No abnormal mediastinal or hilar masses or lymphadenopathy seen. Marked cardiomegaly. Left chest wall pacer/ AICD in place. Prominent caliber of the main pulmonary artery exceeding data of the aorta, carrasco ggests underlying pulmonary hypertension. No significant aortic or pulmonary artery findings. Assessm ent is limited in the absence of IV contrast. No chest wall mass or abnormal axillary lymphadenopathy. Evaluation of the solid abdominal structures reveals no suspicious findings. Atrophic changes of the kidneys. Status post cholecystectomy. Medial mineralization of the mid sized vessels, can be seen in the setting of longstanding diabetes mellitus. IMPRESSION: Cardiomegaly, central interstitial prominence, and bilateral basilar dependent ground-gl ass opacities, could reflect the degree of central congestion/edema. Superimposed pneumonia is consid ered less likely but cannot be entirely excluded. Trace left pleural effusion is noted. Incidental findings as above.
[2023-01-02] MEDS: LINEZOLID 600 MG IVPB 600 MG/300 ML BAG IV SCH ×2 (10:41→21:31)
[2023-01-02] MEDS: CEFEPIME 1 GM in NA CHLORIDE 0.9% 100 ML IV SCH (10:41)
[2023-01-02] MEDS: ISOSORBIDE MONO SR 60 MG TAB PO SCH (10:42)
[2023-01-02] MEDS: SEVELAMER CARBONATE 800 MG TABLET PO SCH ×3 (10:42→16:47)
[2023-01-02] MEDS: ASPIRIN EC 81 MG TAB PO SCH (10:43)
[2023-01-02] MEDS: FUROSEMIDE 40 MG TABLET PO SCH (10:43)
[2023-01-02] MEDS: PANTOPRAZOLE 40MG TABLET PO SCH (10:43)
[2023-01-02] MEDS: CLOPIDOGREL 75 MG TABLET PO SCH (10:44)
[2023-01-02] MEDS: HEPARIN 5000 UNIT/ML 1 ML VIAL SQ SCH ×2 (10:44→21:29)
--- NOTE | 2023-01-02 11:48 | P.PN ---
Date of Service: 01/02/23 Vital Signs Temp Pulse Resp BP Pulse Ox 97.3 F 79 18 134/55 L 100 01/02/23 09:30 01/02/23 10:43 01/02/23 09:30 01/02/23 10:43 01/02/23 09:30 Medications Acetaminophen (Acetaminophen 500 Mg Tab) 500 mg PO Q4HP PRN PRN Reason: T>101*F Last Admin: 12/31/22 12:24 Dose: 500 mg Acetaminophen (Acetaminophen 325 Mg Tablet) 650 mg PO Q4HP PRN PRN Reason: pain Amino Acids (Amino Acids/Protein Hydrolys 30 Ml Liquid.Pkt) 30 ml PO BID [facility] Last Admin: 01/02/23 09:00 Dose: 30 ml Aspirin (Aspirin Ec 81 Mg Tab) 162 mg PO DAILY [facility] Last Admin: 01/02/23 10:43 Dose: 162 mg Calcitriol (Calcitrol 0.25 Mcg Cap) 0.5 mcg PO [id number]@[id number] [facility] Last Admin: 01/02/23 10:42 Dose: 0.5 mcg Clopidogrel Bisulfate (Clopidogrel 75 Mg Tablet) 75 mg PO DAILY [facility] Last Admin: 01/02/23 10:44 Dose: 75 mg Escitalopram Oxalate (Escitalopram 20 Mg Tab) 10 mg PO BEDTIME [facility] Last Admin: 01/01/23 21:18 Dose: 10 mg Furosemide (Furosemide 40 Mg Tablet) 80 mg PO DAILY [facility] Last Admin: 01/02/23 10:43 Dose: 80 mg Heparin Sodium (Porcine) (Heparin 5000 Unit/Ml 1 Ml Vial) 5,000 unit SQ Q12HR [facility] Last Admin: 01/02/23 10:44 Dose: 5,000 unit Linezolid (Zyvox 600 Mg/300 Ml Ivpb (Premix)) 600 mg in 300 mls @ 300 mls/hr IV Q12HR [facility] Last Admin: 01/02/23 10:41 Dose: 300 mls Cefepime HCl 1 gm/ Sodium (Chloride) 100 mls @ 200 mls/hr IV Q24H [facility] Last Admin: 01/02/23 10:41 Dose: 100 mls Isosorbide Mononitrate (Isosorbide Loving Sr 60 Mg Tab) 60 mg PO DAILY [facility] Last Admin: 01/02/23 10:42 Dose: 60 mg Ondansetron HCl (Ondansetron 4 Mg/2 Ml Vial) 4 mg IV Q6HP PRN PRN Reason: NAUSEA / VOMITING Oseltamivir Phosphate (Oseltamivir 30 Mg Cap) 30 mg PO EVERY HD [facility] Last Admin: 12/31/22 22:00 Dose: Not Given Pantoprazole Sodium (Pantoprazole 40mg Tablet) 40 mg PO DAILY [facility]; Protocol Last Admin: 01/02/23 10:43 Dose: 40 mg Pramipexole Dihydrochloride (Pramipexole 0.25 Mg Tab) 0.25 mg PO BEDTIME [facility] Last Admin: 01/01/23 21:18 Dose: 0.25 mg Sevelamer Carbonate (Sevelamer Carbonate 800 Mg Tablet) 1,600 mg PO TIDWM [facility] Last Admin: 01/02/23 10:42 Dose: 1,600 mg Sodium Chloride (Flush Normal Saline 10 Ml) 10 ml IV BID [facility] Last Admin: 01/02/23 10:44 Dose: 10 ml Microbiology Results 12/29/22 12:00 Nasopharnyx Influenza Type A Antigen Screen - Final 12/29/22 12:00 Nasopharnyx Influenza Type B Antigen Screen - Final Assessment/ Plan: Nephrology No dyspnea No chest pain Weakness and fatigue No acute events overnight Vitals, medications, blood work and imaging reviewed in the chart. NAD. NCAT. MMM. Neck supple. Normal respiratory effort. RRR. Abd ND. No C/C. LE Edema none. Finger abnormality. No rash. AAO. Normal speech. ESRD on HD -HD TIW Chronic Hypotension -Continue Midodrine Diastolic CHF, chronic -Low sodium diet -Daily weight -HD with UF DM II with CKD -No sugar diet Anemia in CKD -Retacrit prn CKD MBD -Continue Renvela and Calcitriol Hospitalist note reviewed
--- NOTE | 2023-01-02 14:37 | P.CNS ---
Date of Consult: 01/02/23 Reason for Consult: Influenza, PNA, history of VRE Chief Complaint: Leukocytosis; altered mental status History of Present Illness: Patient is a 72 yo female with a past medical history significant for diabetes mellitus type 2, ESRD on HD, RA and HTN who presented to the ED with complaints of altered mental status and leukocytosis. Of note, patient was recently hospitalized for STEMI s/p stent placement to right coronary artery. ED workup revealing influenza A&B positive. ID was consulted. Allergies No Known Allergies Allergy (Verified 01/02/22 02:33) Home medications list reviewed: Yes Home Medications: Sevelamer Carbonate [Renvela*] 2 tab PO TIDWM 01/02/22 Midodrine HCl 5 mg PO BID 07/19/22 Escitalopram [Lexapro*] 10 mg PO BEDTIME 12/24/22 Isosorbide Mononitrate [Isosorbide Mononitrate ER] 60 mg PO DAILY 12/24/22 Acetaminophen [Tylenol*] 650 mg PO Q4HP PRN 12/29/22 Calcitrol [Rocaltrol*] 0.5 mcg PO SEECOM 12/29/22 Doxazosin [Cardura*] 4 mg PO DAILY 12/29/22 Furosemide [Lasix*] 80 mg PO DAILY 12/29/22 Pantoprazole [Protonix Tab*] 40 mg PO DAILY 12/29/22 Pramipexole [Mirapex*] 0.25 mg PO BEDTIME 12/29/22 - Past Medical/Surgical History Diabetic: Yes -: Diabetes mellitus type 2-insulin dependent -: Rheumatoid arthritis -: Hypertension -: Hyperlipidemia -: Chronic congestive heart failure-unknown EF -: ESRD on HD -: CAD -: History of DVT/PE -: L ankle fusion -: hysterectomy -: Dialysis catheter placement and removal -: Cholecystectomy -: pacemaker/defibrillator Psychosocial/ Personal History: Patient lives with her - Family History Father Family History: Reviewed- Non-Contributory - Social History Smoking Status: Unknown if ever smoked Alcohol use: No CD- Drugs: No Caffeine use: Yes Place of Residence: Residential Review of Systems 10-point ROS is otherwise unremarkable General: Weakness Respiratory: Cough, SOB with Excertion Musculoskeletal: Leg Pain Physical Examination Temp Pulse Resp BP Pulse Ox 97.3 F 79 18 134/55 L 100 01/02/23 12:20 01/02/23 12:20 01/02/23 12:20 01/02/23 12:20 01/02/23 12:20 General: Alert, In no apparent distress, Oriented x2 HEENT: Atraumatic, Normocephalic Neck: JVD not distended Respiratory: Normal air movement, Diminished, Other (nonlabored respirations on room air) Cardiovascular: Regular rate/rhythm, Edema (BLE) Gastrointestinal: Normal bowel sounds, Soft and benign, Non-distended Musculoskeletal: No clubbing Integumentary: No rashes Neurological: Normal speech Laboratory Data - Reviewed Microbiology Data - Reviewed Imagings Data: - Reviewed Conclusions/Impression: Problem List Influenza A&B Diabetes Mellitus Type II Rheumatoid Arthritis Hypertension Hyperlipidemia Congestive Heart Failure, Chronic End-Stage Renal Disease on Hemodialysis Hx DVT Hx CAD s/p stent placement to right coronary artery Sepsis Influenza A&B - CT Chest 01/02: "Cardiomegaly, central interstitial prominence, and bilateral basilar dependent ground-glass opacities, could reflect the degree of central congestion/edema. Superimposed pneumonia is considered less likely but cannot be entirely excluded. Trace left pleural effusion is noted." - Blood cultures 12/29: gram positive cocci in clusters in 1 of 4 bottles, possible contaminant. Repeat blood cultures drawn. Due to recent urine culture on 12/24 with Vancomycin resistant Enterococcus faecaeum, patient was started on Linezolid 12/29. - Repeat blood cultures 01/02: pending - Started on Tamiflu 12/30 - On Cefepime (01/02-) and Linezolid (12/29-) - Leukocytosis improved (WBC 6.8). Afebrile. CHF/ESRD: Cardiology and Nephrology on case Recommendations - Influenza: Continue Tamiflu x 5 days (12/30-) - possible bacterial pneumonia: continue cefepime (01/02-) for now - continue linezolid for now. follow up with repeat blood culture reports. - Nutritional supplementation Case discussed with Allie Alfaro
[2023-01-02] MEDS ORDERED: CEFEPIME 1 GM in NA CHLORIDE 0.9% 100 ML IV SCH (18:00)
[2023-01-02] MEDS: PRAMIPEXOLE 0.25 MG TAB PO SCH (21:28)
[2023-01-02] MEDS: ESCITALOPRAM 20 MG TAB PO SCH (21:28)
--- NOTE | 2023-01-03 02:00 | CON ---
Date of Consultation: 01/02/2023 Reason For Consultation: Elevated troponin. History Of Present Illness: This is a 72-year-old female who was admitted back on the for alter ed mental status and leukocytosis and found to have significant urinary tract infection. She is know n to have end-stage renal disease. I was consulted today because apparently during admission, she gallegos d borderline troponin elevation at 155, went down to 89. She is well known to me. I did a PCI of he r RCA recently and she does not have any significant coronary artery disease elsewhere. The patient was seen by bedside. Denies having any chest pain. Past Medical History: Significant for coronary artery disease; end-stage renal disease, on hemodialy sis; diabetes, dyslipidemia, hypertension, history of DVT and PE. Medications: Refer reconciliation sheet for detailed list. Allergies: NO KNOWN DRUG ALLERGIES. Family History: No premature coronary artery disease or cancer. Social History: She does not smoke or drink. Does not use any drugs. Review of Systems: All systems reviewed and they were negative except as mentioned in the HPI. Physical Examination: Vital Signs: Reviewed. Head and Neck: Pupils are equal, reactive to light. Intact eye movements. No JVD. No cervical lym phadenopathy. Neck: Supple. Thyroid is not enlarged. Lungs: Clear to auscultation bilaterally. No rhonchi, rales, or crackles. No accessory muscle use. Heart: Regular. No extra sounds. Abdomen: Soft, nontender. Bowel sounds positive. No organomegaly. No tenderness to rebound. Extremities: No edema, clubbing, or cyanosis. Intact pulses. Skin: No rashes. Neurologic: Alert, awake. No acute focal deficits appreciated. Investigations: Labs were reviewed. Assessment/recommendation: 1.Elevated troponin, mild elevation and trended down. The patient has no chest pain. No further ca rdiac workup is needed. This is demand ischemia. She had a recent PCI of the RCA and to continue th aspirin and Plavix daily. 2.Hypertension. Blood pressure is controlled. Continue current management. 3.Dyslipidemia. Recommend high potency high-dose statin. There is no active cardiac issues and Car diology will sign off. Thank you for the consult. SR/MODL Voice ID: [id number] Report ID: [id number]
[2023-01-03 07:47] LABS: Phosphorus 3.6 mg/dL (2.5-4.9); Potassium 3.5 mEq/L (3.5-5.1)
[2023-01-03] MEDS ORDERED: SEVELAMER CARBONATE 800 MG TABLET PO SCH (08:00)
[2023-01-03] MEDS: LINEZOLID 600 MG IVPB 600 MG/300 ML BAG IV SCH (10:13)
[2023-01-03] MEDS: CEFEPIME 1 GM in NA CHLORIDE 0.9% 100 ML IV SCH (10:14)
[2023-01-03] MEDS: FUROSEMIDE 40 MG TABLET PO SCH (10:14)
[2023-01-03] MEDS: ISOSORBIDE MONO SR 60 MG TAB PO SCH (10:14)
[2023-01-03] MEDS: PANTOPRAZOLE 40MG TABLET PO SCH (10:14)
[2023-01-03] MEDS: ASPIRIN EC 81 MG TAB PO SCH (10:14)
--- NOTE | 2023-01-03 10:14 | P.PN ---
Date of Service: 01/03/23 Chief Complaint: Leukocytosis; altered mental status Subjective: Patient seen and examined at bedside. Breathing comfortably on room air. No acute events reported overnight. Denies any new or worsening complaints. Physical Examination Temp Pulse Resp BP Pulse Ox 97.5 F 75 19 145/58 H 97 01/03/23 08:00 01/03/23 08:00 01/03/23 08:00 01/03/23 08:00 01/03/23 08:00 General: Alert, In no apparent distress, Oriented x3 HEENT: Atraumatic, Normocephalic Neck: JVD not distended Respiratory: Normal air movement, Diminished. Nonlabored respirations on room air Cardiovascular: Regular rate/rhythm, Edema BLE. Gastrointestinal: Normal bowel sounds, Soft and benign, Non-distended Musculoskeletal: No clubbing Integumentary: No rashes Neurological: Normal speech Laboratory Data - Reviewed Microbiology Data - Reviewed Imagings Data - Reviewed Medications List: Reviewed Assessment and Plan Problem List Influenza A&B Diabetes Mellitus Type II Rheumatoid Arthritis Hypertension Hyperlipidemia Congestive Heart Failure, Chronic End-Stage Renal Disease on Hemodialysis Hx DVT Hx CAD s/p stent placement to right coronary artery Sepsis Influenza A&B - CT Chest 01/02: "Cardiomegaly, central interstitial prominence, and bilateral basilar dependent ground-glass opacities, could reflect the degree of central congestion/edema. Superimposed pneumonia is considered less likely but cannot be entirely excluded. Trace left pleural effusion is noted." - Blood cultures 12/29: Staphylococcus aureus (MRSA) in 1 of 4 bottles. - Repeat blood cultures 01/02: Pending - Due to recent urine culture on 12/24 with Vancomycin-Resistant Enterococcus faecium, patient was started on Linezolid 12/29. - On Cefepime (01/02-) and Linezolid (12/29-) - On Tamiflu 12/30 - Leukocytosis improved. Afebrile. Cardiology on case ESRD: Nephrology on case Recommendations - MRSA blood culture: Linezolid switched to Vancomycin IV 01/03 - Influenza: Continue Tamiflu x 5 days (started 12/30) - Renally dose medications - follow up with repeat blood culture Case discussed with Allie Alfaro
[2023-01-03] MEDS: HEPARIN 5000 UNIT/ML 1 ML VIAL SQ SCH ×2 (10:15→22:35)
[2023-01-03] MEDS: CLOPIDOGREL 75 MG TABLET PO SCH (10:15)
[2023-01-03] MEDS: AMINO ACIDS/PROTEIN HYDROLYS 30 ML LIQUID.PKT PO SCH ×2 (10:15→22:35)
[2023-01-03] MEDS: CALCITROL 0.25 MCG CAP PO SCH (10:15)
[2023-01-03] MEDS ORDERED: VANCOMYCIN 1.5 GM in NA CHLORIDE 0.9% 500 ML IVPB ONE (13:00)
--- NOTE | 2023-01-03 19:49 | P.PN ---
Subjective Date of Service: 01/03/23 Chief Complaint: Leukocytosis; altered mental status Her blood culture returned positive for MRSA. She denies any new symptoms this morning. She denies any fevers, chills, chest pain, or shortness of breath. Review of Systems 10-point ROS is otherwise unremarkable General: Weakness (generalized) Physical Examination - Vital Signs Temperature: 97.0 F Blood Pressure: 128/58 Pulse: 80 Respirations: 16 Pulse Ox (%): 99 - Studies Medications List Reviewed: Yes Assessment And Plan - Plan - Physical Exam General: Alert, In no apparent distress, Oriented x3 HEENT: Atraumatic, Mucous membr. moist/pink, Sclerae nonicteric Respiratory: Diminished, Crackles/rales (bibasilar) Cardiovascular: Regular rate/rhythm, No murmurs, Edema (1+ BLE) Gastrointestinal: Normal bowel sounds, Soft, Non-distended, No tenderness Musculoskeletal: No clubbing Integumentary: No rashes Neurological: Normal speech, Normal affect # Severe Viral Sepsis suspect secondary to Influenza Infection with concern for Superimposed Bacterial Pneumonia and Methicillin-Resistant Staphylococcus Aureus Bacteremia # Acute Toxic Metabolic Encephalopathy likely due to above - resolved # History of Vancomycin-Resistant Enterococcus Faecium UTI She met SIRS criteria based on HR > 90 bpm, RR > 20 breaths/min, and WBC > 12,000 and the suspected source is pulmonary. Severe sepsis is suspected due to concern for tissue hypoperfusion/organ dysfunction based on coagulopathy (INR > 1.5) and lactic acid > 2 mmol/L. - Consult Infectious Diseases and spoke with COMMUNICATIONS SYSTEMS ENGINEER Sgarbi - recommendations appreciated - Recommended switching linezolid to vancomycin - Sepsis order set was initiated - Lactate trend was 2.2 -> 1.9 - Procalcitonin 3.35 - Chest x-ray (01/02) = "findings suggestive of CHF. Left basilar/retrocardiac airspace opacity may relate to atelectasis or developing airspace disease." - Blood cultures drawn: 05/25 positive for MRSA. Repeat blood cultures with NGTD - Broad spectrum antibiotics started: Vancomycin + Cefepime - Continue oseltamivir - In regards to fluids: - 30 mL/kg of IV fluids was not administered given SBP > 90, MAP > 65, lactic acid < 4 # Acute on Chronic Decompensated Congestive Heart Failure with Preserved Ejection Fraction - Consult Cardiology - recommendations appreciated - Transthoracic echocardiogram (01/06/2022) = "normal left ventricular ejection fraction 55-60%. normal wall motion. 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
--- NOTE | 2023-01-03 19:49 | P.PN ---
Date of Service: 01/03/23 Vital Signs Temp Pulse Resp BP Pulse Ox 97.0 F 80 16 128/58 L 99 01/03/23 16:00 01/03/23 16:00 01/03/23 16:00 01/03/23 16:00 01/03/23 16:00 Medications Acetaminophen (Acetaminophen 500 Mg Tab) 500 mg PO Q4HP PRN PRN Reason: T>101*F Last Admin: 12/31/22 12:24 Dose: 500 mg Amino Acids (Amino Acids/Protein Hydrolys 30 Ml Liquid.Pkt) 30 ml PO BID [facility] Last Admin: 01/03/23 10:15 Dose: 30 ml Aspirin (Aspirin Ec 81 Mg Tab) 162 mg PO DAILY [facility] Last Admin: 01/03/23 10:14 Dose: 162 mg Calcitriol (Calcitrol 0.25 Mcg Cap) 0.5 mcg PO DAILY [facility] Last Admin: 01/03/23 10:15 Dose: 0.5 mcg Clopidogrel Bisulfate (Clopidogrel 75 Mg Tablet) 75 mg PO DAILY [facility] Last Admin: 01/03/23 10:15 Dose: 75 mg Escitalopram Oxalate (Escitalopram 20 Mg Tab) 10 mg PO BEDTIME [facility] Last Admin: 01/02/23 21:28 Dose: 10 mg Furosemide (Furosemide 40 Mg Tablet) 80 mg PO DAILY [facility] Last Admin: 01/03/23 10:14 Dose: 80 mg Heparin Sodium (Porcine) (Heparin 5000 Unit/Ml 1 Ml Vial) 5,000 unit SQ Q12HR [facility] Last Admin: 01/03/23 10:15 Dose: 5,000 unit Cefepime HCl 1 gm/ Sodium (Chloride) 100 mls @ 200 mls/hr IV Q24H [facility] Last Admin: 01/03/23 10:14 Dose: 100 mls Vancomycin HCl 500 mg/ Sodium (Chloride) 100 mls @ 200 mls/hr IVPB AFTER EACH DIALYSIS [facility] Isosorbide Mononitrate (Isosorbide [place] 60 Mg Tab) 60 mg PO DAILY [facility] Last Admin: 01/03/23 10:14 Dose: 60 mg Ondansetron HCl (Ondansetron 4 Mg/2 Ml Vial) 4 mg IV Q6HP PRN PRN Reason: NAUSEA / VOMITING Oseltamivir Phosphate (Oseltamivir 30 Mg Cap) 30 mg PO EVERY HD [facility] Last Admin: 12/31/22 22:00 Dose: Not Given Pantoprazole Sodium (Pantoprazole 40mg Tablet) 40 mg PO DAILY [facility]; Protocol Last Admin: 01/03/23 10:14 Dose: 40 mg Pramipexole Dihydrochloride (Pramipexole 0.25 Mg Tab) 0.25 mg PO BEDTIME [facility] Last Admin: 01/02/23 21:28 Dose: 0.25 mg Sodium Chloride (Flush Normal Saline 10 Ml) 10 ml IV BID [facility] Last Admin: 01/03/23 10:15 Dose: 10 ml Microbiology Results 12/29/22 12:00 Nasopharnyx Influenza Type A Antigen Screen - Final 12/29/22 12:00 Nasopharnyx Influenza Type B Antigen Screen - Final Assessment/ Plan: Nephrology No dyspnea No chest pain Weakness and fatigue No acute events overnight Vitals, medications, blood work and imaging reviewed in the chart. NAD. NCAT. MMM. Neck supple. Normal respiratory effort. RRR. Abd ND. No C/C. LE Edema none. Finger abnormality. No rash. AAO. Normal speech. ESRD on HD -HD TIW Chronic Hypotension -Continue Midodrine Diastolic CHF, chronic -Low sodium diet -Daily weight -HD with UF DM II with CKD -No sugar diet Anemia in CKD -Retacrit prn CKD MBD -Continue Renvela and Calcitriol MRSA Bacteremia -Continue Vancomycin Case reviewed with Dr. White Hospitalist note reviewed
[2023-01-03] MEDS: PRAMIPEXOLE 0.25 MG TAB PO SCH (22:35)
[2023-01-03] MEDS: ESCITALOPRAM 20 MG TAB PO SCH (22:35)
[2023-01-04] MEDS ORDERED: VANCOMYCIN 500 MG in NA CHLORIDE 0.9% 100 ML IVPB SCH ×2 (03:00→18:00)
--- NOTE | 2023-01-04 07:12 | ECHO ---
HEIGHT: 5 ft 3 in WEIGHT: 146 lb 0 oz DATE OF STUDY: 01/03/[address]: Anthony White MD 2-DIMENSIONAL: YES M.MODE: YES DOPPLER: YES COLOR FLOW: YES TDS: PORTABLE: YES DEFINITY: BUBBLE STUDY: DIAGNOSIS: METHICILLIN-RESISTANT STAPHYLOCCOCCUS AUREUS BACTERMIA CARDIAC HISTORY: CATHERIZATION: YES SURGERY: NO PROSTHETIC VALVE: NO PACEMAKER: YES MEASUREMENTS (cm) DIASTOLIC (NORMALS) SYSTOLIC (NORMALS) IVSd 1.1 (0.6-1.2) LA Diam 4.9 (1.9-4.0) LVEF 55% LVIDd 5.5 (3.5-5.7) LVIDs 4.6 (2.0-3.5) %FS 17% LVPWd 1.1 (0.6-1.2) Ao Diam 3.0 (2.0-3.7) 2 DIMENSIONAL ASSESSMENT: RIGHT ATRIUM: NORMAL LEFT ATRIUM: ENLARGED RIGHT VENTRICLE: NORMAL LEFT VENTRICLE: NORMAL TRICUSPID VALVE: MILD TRICUSPID REGURGITATION MITRAL VALVE: SEVERE MITRAL REGURGITATION PULMONIC VALVE: NORMAL AORTIC VALVE: MILD AORTIC INSUFFICIENCY PERICARDIAL EFFUSION: NONE AORTIC ROOT: NORMAL LEFT VENTRICULAR WALL MOTION: NORMAL DOPPLER/COLOR FLOW: SEE BELOW COMMENTS: 1. NORMAL LEFT VENTRICULAR EJECTION FRACTION 55-60% 2. NORMAL WALL MOTION 3. SEVERE MITRAL REGURGITATION 4. MILD AORTIC INSUFFICIENCY 5. MILD TRICUSPID REGURGITATION 6. NO CLEAR VEGETATION IS SEEN ON THIS EXAM 7. LEFT ATRIAL ENLARGEMENT TECHNOLOGIST: JENNI DEVLIN
[2023-01-04 07:48] LABS: Potassium 3.6 mEq/L (3.5-5.1)
[2023-01-04] MEDS: FUROSEMIDE 40 MG TABLET PO SCH (08:47)
[2023-01-04] MEDS: CALCITROL 0.25 MCG CAP PO SCH (08:47)
[2023-01-04] MEDS: PANTOPRAZOLE 40MG TABLET PO SCH (08:47)
[2023-01-04] MEDS: CLOPIDOGREL 75 MG TABLET PO SCH (08:48)
[2023-01-04] MEDS: CEFEPIME 1 GM in NA CHLORIDE 0.9% 100 ML IV SCH (08:48)
[2023-01-04] MEDS: ISOSORBIDE MONO SR 60 MG TAB PO SCH (08:48)
[2023-01-04] MEDS: ASPIRIN EC 81 MG TAB PO SCH (08:49)
[2023-01-04] MEDS: HEPARIN 5000 UNIT/ML 1 ML VIAL SQ SCH ×2 (08:49→20:49)
[2023-01-04] MEDS: OSELTAMIVIR 30 MG CAP PO SCH (08:50)
[2023-01-04] MEDS: AMINO ACIDS/PROTEIN HYDROLYS 30 ML LIQUID.PKT PO SCH ×2 (08:57→20:50)
[2023-01-04 13:27] VITALS: BMI 25.1
[2023-01-04 15:55] LABS: Hepatitis B surface AG Interp. Nonreactive (Nonreactive)
--- NOTE | 2023-01-04 16:07 | P.PN ---
Date of Service: 01/04/23 Chief Complaint: Leukocytosis; altered mental status Subjective: Denies any pain. No nausea,vomiting or diarrhea. No cough or SOB reported. No acute events reported overnight. In no apparent distress. Physical Examination Temp Pulse Resp BP Pulse Ox 97.7 F 79 14 145/65 H 100 01/04/23 12:00 01/04/23 12:00 01/04/23 12:00 01/04/23 12:00 01/04/23 12:00 General: Alert, Oriented x2-3. NAD. HEENT: Atraumatic, Normocephalic Neck: JVD not distended Respiratory: Nonlabored respirations on room air Cardiovascular: Regular rate. 1+ BLE edema. Gastrointestinal: Normal bowel sounds, Soft and benign, Non-distended Musculoskeletal: No clubbing Integumentary: No rashes Neurological: Normal speech. Delayed response time. Laboratory Data - Reviewed Microbiology Data - Reviewed Imagings Data - Reviewed Medications List: Reviewed Assessment and Plan Problem List Influenza A&B Diabetes Mellitus Type II Rheumatoid Arthritis Hypertension Hyperlipidemia Congestive Heart Failure, Chronic End-Stage Renal Disease on Hemodialysis Hx DVT Hx CAD s/p stent placement to right coronary artery Sepsis Influenza A&B MRSA Bacteremia - CT Chest 01/02: "Cardiomegaly, central interstitial prominence, and bilateral basilar dependent ground-glass opacities, could reflect the degree of central congestion/edema. Superimposed pneumonia is considered less likely but cannot be entirely excluded. Trace left pleural effusion is noted." - On Tamiflu 12/30 given on dialysis days. - Blood cultures 12/29: Staphylococcus aureus (MRSA) in 1 of 4 bottles. - Repeat blood cultures 01/02: No growth to date. - Previously on Linezolid 12/29-01/02. - On Cefepime and Vancomcyin 01/02- - Leukocytosis resolved. Afebrile. Cardiology on case ESRD: Nephrology on case Recommendations - MRSA Bacteremia: Continue Vancomycin IV x 14 days. Administered on dialysis days. first dose given 01/04. - Influenza: Tamiflu x 5 days - Renally dose medications Case discussed with Allie Alfaro
--- NOTE | 2023-01-04 18:46 | P.PN ---
Subjective Date of Service: 01/04/23 Chief Complaint: Leukocytosis; altered mental status No acute events overnight. She denies any new symptoms. She reports generalized weakness. Appreciate Cardiology recommendations regarding necessity of transesophageal echocardiogram. She denies any fevers, chills, chest pain, or shortness of breath. Review of Systems 10-point ROS is otherwise unremarkable General: Weakness (generalized) Physical Examination - Vital Signs Temperature: 97.4 F Blood Pressure: 129/50 Pulse: 78 Respirations: 14 Pulse Ox (%): 97 - Studies Medications List Reviewed: Yes Assessment And Plan - Plan - Physical Exam General: Alert, In no apparent distress, Oriented x3 HEENT: Atraumatic, Mucous membr. moist/pink, Sclerae nonicteric Respiratory: Diminished, Crackles/rales (faint bibasilar) Cardiovascular: Regular rate/rhythm, No murmurs, Edema (1+ BLE) Gastrointestinal: Normal bowel sounds, Soft, Non-distended, No tenderness Musculoskeletal: No clubbing Integumentary: No rashes Neurological: Normal speech, Normal affect # Severe Viral Sepsis suspect secondary to Influenza Infection with concern for Superimposed Bacterial Pneumonia and Methicillin-Resistant Staphylococcus Aureus Bacteremia # Acute Toxic Metabolic Encephalopathy likely due to above - resolved # History of Vancomycin-Resistant Enterococcus Faecium UTI She met SIRS criteria based on HR > 90 bpm, RR > 20 breaths/min, and WBC > 12,000 and the suspected source is pulmonary. Severe sepsis is suspected due to concern for tissue hypoperfusion/organ dysfunction based on coagulopathy (INR > 1.5) and lactic acid > 2 mmol/L. - Consult Infectious Diseases and spoke with [employer] Sgarbi - recommendations appreciated - Recommended switching linezolid to vancomycin - Sepsis order set was initiated - Lactate trend was 2.2 -> 1.9 - Procalcitonin 3.35 - Chest x-ray (01/02) = "findings suggestive of CHF. Left basilar/retrocardiac airspace opacity may relate to atelectasis or developing airspace disease." - Blood cultures drawn: 05/25 positive for MRSA. Repeat blood cultures with NGTD - Broad spectrum antibiotics started: Vancomycin + Cefepime - Continue oseltamivir - In regards to fluids: - 30 mL/kg of IV fluids was not administered given SBP > 90, MAP > 65, lactic acid < 4 # Acute on Chronic Decompensated Congestive Heart Failure with Preserved Ejection Fraction - Consult Cardiology - recommendations appreciated - Transthoracic echocardiogram (01/06/2022) = "normal left ventricular ejection fraction 55-60%. normal wall motion. 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
[2023-01-04] MEDS: ESCITALOPRAM 20 MG TAB PO SCH (20:49)
[2023-01-04] MEDS: PRAMIPEXOLE 0.25 MG TAB PO SCH (20:49)
[2023-01-04] MEDS: NEPRO SHAKE 237 ML CAN PO SCH (20:50)
--- NOTE | 2023-01-04 20:52 | P.PN ---
Date of Service: 01/04/23 Vital Signs Temp Pulse Resp BP Pulse Ox 96.2 F L 80 16 118/47 L 95 01/04/23 20:00 01/04/23 20:00 01/04/23 20:00 01/04/23 20:00 01/04/23 20:00 Medications Acetaminophen (Acetaminophen 500 Mg Tab) 500 mg PO Q4HP PRN PRN Reason: T>101*F Last Admin: 12/31/22 12:24 Dose: 500 mg Amino Acids (Amino Acids/Protein Hydrolys 30 Ml Liquid.Pkt) 30 ml PO BID [facility] Last Admin: 01/04/23 08:57 Dose: 30 ml Aspirin (Aspirin Ec 81 Mg Tab) 162 mg PO DAILY [facility] Last Admin: 01/04/23 08:49 Dose: 162 mg Calcitriol (Calcitrol 0.25 Mcg Cap) 0.5 mcg PO DAILY [facility] Last Admin: 01/04/23 08:47 Dose: 0.5 mcg Clopidogrel Bisulfate (Clopidogrel 75 Mg Tablet) 75 mg PO DAILY [facility] Last Admin: 01/04/23 08:48 Dose: 75 mg Enteral Nutritional Formula (Nepro Shake 237 Ml Can) 237 ml PO BID [facility] Escitalopram Oxalate (Escitalopram 20 Mg Tab) 10 mg PO BEDTIME [facility] Last Admin: 01/03/23 22:35 Dose: 10 mg Furosemide (Furosemide 40 Mg Tablet) 80 mg PO DAILY [facility] Last Admin: 01/04/23 08:47 Dose: 80 mg Heparin Sodium (Porcine) (Heparin 5000 Unit/Ml 1 Ml Vial) 5,000 unit SQ Q12HR [facility] Last Admin: 01/04/23 08:49 Dose: 5,000 unit Cefepime HCl 1 gm/ Sodium (Chloride) 100 mls @ 200 mls/hr IV Q24H [facility] Last Admin: 01/04/23 08:48 Dose: 100 mls Vancomycin HCl 500 mg/ Sodium (Chloride) 100 mls @ 200 mls/hr IVPB AFTER EACH DIALYSIS [facility] Last Admin: 01/04/23 03:04 Dose: 100 mls Isosorbide Mononitrate (Isosorbide [place] Sr 60 Mg Tab) 60 mg PO DAILY [facility] Last Admin: 01/04/23 08:48 Dose: 60 mg Ondansetron HCl (Ondansetron 4 Mg/2 Ml Vial) 4 mg IV Q6HP PRN PRN Reason: NAUSEA / VOMITING Oseltamivir Phosphate (Oseltamivir 30 Mg Cap) 30 mg PO EVERY HD [facility] Last Admin: 01/04/23 08:50 Dose: 30 mg Pantoprazole Sodium (Pantoprazole 40mg Tablet) 40 mg PO DAILY [facility]; Protocol Last Admin: 01/04/23 08:47 Dose: 40 mg Pramipexole Dihydrochloride (Pramipexole 0.25 Mg Tab) 0.25 mg PO BEDTIME [facility] Last Admin: 01/03/23 22:35 Dose: 0.25 mg Sodium Chloride (Flush Normal Saline 10 Ml) 10 ml IV BID [facility] Last Admin: 01/04/23 08:50 Dose: 10 ml Microbiology Results 12/29/22 12:00 Nasopharnyx Influenza Type A Antigen Screen - Final 12/29/22 12:00 Nasopharnyx Influenza Type B Antigen Screen - Final Assessment/ Plan: Nephrology No dyspnea No chest pain Weakness and fatigue No acute events overnight Vitals, medications, blood work and imaging reviewed in the chart. NAD. NCAT. MMM. Neck supple. Normal respiratory effort. RRR. Abd ND. No C/C. LE Edema none. Finger abnormality. No rash. AAO. Normal speech. ESRD on HD -HD TIW Chronic Hypotension -Continue Midodrine Diastolic CHF, chronic -Low sodium diet -Daily weight -HD with UF DM II with CKD -No sugar diet Anemia in CKD -Retacrit prn CKD MBD -Continue Renvela and Calcitriol MRSA Bacteremia -Continue Vancomycin Case reviewed with Dr. White Hospitalist & ID note reviewed
[2023-01-04 23:44] VITALS: O2SAT 95
[2023-01-05 06:55] LABS: Potassium 3.3 mEq/L (3.5-5.1)
--- NOTE | 2023-01-05 08:33 | P.PN ---
Date of Service: 01/05/23 Chief Complaint: Leukocytosis; altered mental status Subjective: Improving. Patient denies any shortness of breath, cough or chest pain. Denies any nausea, vomiting, diarrhea or abdominal pain. Denies any complaints at this time. No acute events reported overnight. Physical Examination Temp Pulse Resp BP Pulse Ox 96.5 F L 79 18 118/49 L 91 01/05/23 04:00 01/05/23 04:00 01/05/23 04:00 01/05/23 04:00 01/05/23 04:00 General: Alert, Oriented x2-3. NAD. HEENT: Atraumatic, Normocephalic Neck: JVD not distended Respiratory: Diminished at bases. Non-labored respirations on room air Cardiovascular: Regular rate. Trace BLE edema. Gastrointestinal: Normal bowel sounds, Soft and benign, Non-distended Musculoskeletal: No clubbing. No swelling. Integumentary: No rashes. Laboratory Data - Reviewed Microbiology Data - Reviewed Imagings Data - Reviewed Medications List: Reviewed Assessment and Plan Problem List Influenza A&B Diabetes Mellitus Type II Rheumatoid Arthritis Hypertension Hyperlipidemia Congestive Heart Failure, Chronic End-Stage Renal Disease on Hemodialysis Hx DVT Hx CAD s/p stent placement to right coronary artery Severe PCM Sepsis Influenza A&B MRSA Bacteremia - CT Chest 01/02: "Cardiomegaly, central interstitial prominence, and bilateral basilar dependent ground-glass opacities, could reflect the degree of central congestion/edema. Superimposed pneumonia is considered less likely but cannot be entirely excluded. Trace left pleural effusion is noted." - Influenza: Tamiflu x 5 days - Blood cultures 12/29: Staphylococcus aureus (MRSA) in 1 of 4 bottles. - Repeat blood cultures 01/02: No growth to date. - TTE on 01/03 no clear evidence of vegetation seen. - Previously on Linezolid (12/29-01/02) - On Cefepime and Vancomcyin (01/02-) - Leukocytosis resolved. Afebrile. Nephrology and Cardiology on case Recommendations - MRSA Bacteremia: Continue Vancomycin IV for 14 days. First dose was given on 01/04. Administered on dialysis days. - Cardiology consulted for TTE/SATISH to eval for possible endocarditis. Follow up with results. - Cefepime discontinued. Tamiflu discontinued. - Nutritional supplementation Case discussed with Allie Alfaro
[2023-01-05] MEDS: CLOPIDOGREL 75 MG TABLET PO SCH (08:46)
[2023-01-05] MEDS: CALCITROL 0.25 MCG CAP PO SCH (08:46)
[2023-01-05] MEDS: ASPIRIN EC 81 MG TAB PO SCH (08:46)
[2023-01-05] MEDS: FUROSEMIDE 40 MG TABLET PO SCH (08:46)
[2023-01-05] MEDS: AMINO ACIDS/PROTEIN HYDROLYS 30 ML LIQUID.PKT PO SCH ×2 (08:47→21:00)
[2023-01-05] MEDS: CEFEPIME 1 GM in NA CHLORIDE 0.9% 100 ML IV SCH (08:47)
[2023-01-05] MEDS: NEPRO SHAKE 237 ML CAN PO SCH ×2 (08:47→21:28)
[2023-01-05] MEDS: PANTOPRAZOLE 40MG TABLET PO SCH (08:47)
[2023-01-05] MEDS: ISOSORBIDE MONO SR 60 MG TAB PO SCH (08:47)
[2023-01-05] MEDS ORDERED: POTASSIUM CL SA 10 MEQ TAB PO ONE (11:27)
--- NOTE | 2023-01-05 11:28 | P.PN ---
Date of Service: 01/05/23 Vital Signs Temp Pulse Resp BP Pulse Ox 97.0 F 80 16 144/57 H 99 01/05/23 08:00 01/05/23 08:00 01/05/23 08:00 01/05/23 08:00 01/05/23 08:00 Medications Acetaminophen (Acetaminophen 500 Mg Tab) 500 mg PO Q4HP PRN PRN Reason: T>101*F Last Admin: 12/31/22 12:24 Dose: 500 mg Amino Acids (Amino Acids/Protein Hydrolys 30 Ml Liquid.Pkt) 30 ml PO BID [facility] Last Admin: 01/05/23 08:47 Dose: 30 ml Aspirin (Aspirin Ec 81 Mg Tab) 162 mg PO DAILY [facility] Last Admin: 01/05/23 08:46 Dose: 162 mg Calcitriol (Calcitrol 0.25 Mcg Cap) 0.5 mcg PO DAILY [facility] Last Admin: 01/05/23 08:46 Dose: 0.5 mcg Clopidogrel Bisulfate (Clopidogrel 75 Mg Tablet) 75 mg PO DAILY [facility] Last Admin: 01/05/23 08:46 Dose: 75 mg Enteral Nutritional Formula (Nepro Shake 237 Ml Can) 237 ml PO BID [facility] Last Admin: 01/05/23 08:47 Dose: 237 ml Escitalopram Oxalate (Escitalopram 20 Mg Tab) 10 mg PO BEDTIME [facility] Last Admin: 01/04/23 20:49 Dose: 10 mg Furosemide (Furosemide 40 Mg Tablet) 80 mg PO DAILY [facility] Last Admin: 01/05/23 08:46 Dose: 80 mg Vancomycin HCl 500 mg/ Sodium (Chloride) 100 mls @ 200 mls/hr IVPB AFTER EACH DIALYSIS [facility] Isosorbide Mononitrate (Isosorbide [place] Sr 60 Mg Tab) 60 mg PO DAILY [facility] Last Admin: 01/05/23 08:47 Dose: 60 mg Ondansetron HCl (Ondansetron 4 Mg/2 Ml Vial) 4 mg IV Q6HP PRN PRN Reason: NAUSEA / VOMITING Pantoprazole Sodium (Pantoprazole 40mg Tablet) 40 mg PO DAILY [facility]; Protocol Last Admin: 01/05/23 08:47 Dose: 40 mg Pramipexole Dihydrochloride (Pramipexole 0.25 Mg Tab) 0.25 mg PO BEDTIME [facility] Last Admin: 01/04/23 20:49 Dose: 0.25 mg Sodium Chloride (Flush Normal Saline 10 Ml) 10 ml IV BID [facility] Last Admin: 01/05/23 08:47 Dose: 10 ml Microbiology Results 12/29/22 12:00 Nasopharnyx Influenza Type A Antigen Screen - Final 12/29/22 12:00 Nasopharnyx Influenza Type B Antigen Screen - Final Assessment/ Plan: Nephrology No dyspnea No chest pain Weakness and fatigue No acute events overnight Vitals, medications, blood work and imaging reviewed in the chart. NAD. NCAT. MMM. Neck supple. Normal respiratory effort. RRR. Abd ND. No C/C. LE Edema none. Finger abnormality. No rash. AAO. Normal speech. ESRD on HD -HD TIW Hypokalemia -Replete as ordered -Higher potassium HD bath Chronic Hypotension -Continue Midodrine Diastolic CHF, chronic -Low sodium diet -Daily weight -HD with UF DM II with CKD -No sugar diet Anemia in CKD -Retacrit prn CKD MBD -Continue Renvela and Calcitriol MRSA Bacteremia -Continue Vancomycin Case reviewed with Dr. White Hospitalist & ID note reviewed
--- NOTE | 2023-01-05 17:47 | P.PN ---
Subjective Date of Service: 01/05/23 Chief Complaint: Leukocytosis; altered mental status No acute events overnight. She denies any new symptoms. Spoke with Dr. Wilkins, who recommended repeat transthoracic echocardiogram tomorrow morning to see if he can clearly evaluate for valvular vegetations prior to making a final d ecision on transesophageal echocardiogram. She denies any fevers, chills, chest pain, or shortness of breath. Review of Systems 10-point ROS is otherwise unremarkable General: Weakness (generalized) Physical Examination - Vital Signs Temperature: 97.0 F Blood Pressure: 142/60 Pulse: 79 Respirations: 16 Pulse Ox (%): 99 - Studies Medications List Reviewed: Yes Assessment And Plan - Plan - Physical Exam General: Alert, In no apparent distress, Oriented x3 HEENT: Atraumatic, Mucous membr. moist/pink, Sclerae nonicteric Respiratory: Diminished, Crackles/rales (faint bibasilar) Cardiovascular: Regular rate/rhythm, Systolic murmur, Edema (1+ BLE) Gastrointestinal: Normal bowel sounds, Soft, Non-distended, No tenderness Musculoskeletal: No clubbing Integumentary: No rashes Neurological: Normal speech, Normal affect # Severe Viral Sepsis suspect secondary to Influenza Infection with concern for Superimposed Bacterial Pneumonia and Methicillin-Resistant Staphylococcus Aureus Bacteremia # Acute Toxic Metabolic Encephalopathy likely due to above - resolved # History of Vancomycin-Resistant Enterococcus Faecium UTI She met SIRS criteria based on HR > 90 bpm, RR > 20 breaths/min, and WBC > 12,000 and the suspected source is pulmonary. Severe sepsis is suspected due to concern for tissue hypoperfusion/organ dysfunction based on coagulopathy (INR > 1.5) and lactic acid > 2 mmol/L. - Consult Infectious Diseases and spoke with [employer] Sgarbi - recommendations appreciated - Sepsis order set was initiated - Lactate trend was 2.2 -> 1.9 - Procalcitonin 3.35 - Chest x-ray (01/02) = "findings suggestive of CHF. Left basilar/retrocardiac airspace opacity may relate to atelectasis or developing airspace disease." - Blood cultures drawn: 05/25 positive for MRSA. Repeat blood cultures with NGTD - Broad spectrum antibiotics started: Vancomycin + Cefepime - In regards to fluids: - 30 mL/kg of IV fluids was not administered given SBP > 90, MAP > 65, lactic acid < 4 # Acute on Chronic Decompensated Congestive Heart Failure with Preserved Ejection Fraction - Consult Cardiology and spoke with Dr. Wilkins - recommendations appreciated - Transthoracic echocardiogram (01/03/2023) = "1. normal left ventricular ejection fraction 55-60% 2. normal wall motion 3. severe mitral regurgitation 4. mild aortic insufficiency 5. mild tricuspid regurgitation 6. no clear vegetation is seen on this exam 7. 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
[2023-01-05] MEDS ORDERED: VANCOMYCIN 500 MG in NA CHLORIDE 0.9% 100 ML IVPB SCH (18:00)
[2023-01-05] MEDS: PRAMIPEXOLE 0.25 MG TAB PO SCH (21:28)
[2023-01-05] MEDS: ESCITALOPRAM 20 MG TAB PO SCH (21:28)
[2023-01-06 04:55] LABS: Magnesium 1.8 mg/dL (1.6-2.4); Phosphorus 2.4 mg/dL (2.5-4.9); Potassium 3.8 mEq/L (3.5-5.1)
[2023-01-06] MEDS: NEPRO SHAKE 237 ML CAN PO SCH ×2 (09:00→22:16)
[2023-01-06] MEDS: AMINO ACIDS/PROTEIN HYDROLYS 30 ML LIQUID.PKT PO SCH ×2 (09:00→21:00)
[2023-01-06] MEDS: CALCITROL 0.25 MCG CAP PO SCH (09:21)
[2023-01-06] MEDS: ISOSORBIDE MONO SR 60 MG TAB PO SCH (09:21)
[2023-01-06] MEDS: PANTOPRAZOLE 40MG TABLET PO SCH (09:22)
[2023-01-06] MEDS: FUROSEMIDE 40 MG TABLET PO SCH (09:22)
[2023-01-06] MEDS: CLOPIDOGREL 75 MG TABLET PO SCH (09:22)
[2023-01-06] MEDS: ASPIRIN EC 81 MG TAB PO SCH (09:22)
--- NOTE | 2023-01-06 09:29 | P.PN ---
Date of Service: 01/06/23 Chief Complaint: Leukocytosis; altered mental status Subjective: Patient seen and examined at bedside. No new or worsening complaints. No acute events reported overnight. Breathing comfortably on room air. Continue current plan of care. Physical Examination Temp Pulse Resp BP Pulse Ox 97.1 F 79 17 147/69 H 100 01/06/23 05:00 01/06/23 09:22 01/06/23 05:00 01/06/23 09:22 01/06/23 05:00 General: Alert, Oriented x2-3. NAD. HEENT: Atraumatic, Normocephalic Neck: JVD not distended Respiratory: Diminished at bases. Non-labored respirations on room air Cardiovascular: Regular rate. Trace BLE edema. Gastrointestinal: Normal bowel sounds, Soft and benign, Non-distended Musculoskeletal: No clubbing. No swelling. Integumentary: Moisture associated dermatitis buttocks. Laboratory Data - Reviewed Microbiology Data - Reviewed Imagings Data - Reviewed Medications List: Reviewed Assessment and Plan Problem List Influenza A&B Diabetes Mellitus Type II Rheumatoid Arthritis Hypertension Hyperlipidemia Congestive Heart Failure, Chronic End-Stage Renal Disease on Hemodialysis Hx DVT Hx CAD s/p stent placement to right coronary artery Severe PCM Sepsis Influenza A&B MRSA Bacteremia - CT Chest 01/02: "Cardiomegaly, central interstitial prominence, and bilateral basilar dependent ground-glass opacities, could reflect the degree of central congestion/edema. Superimposed pneumonia is considered less likely but cannot be entirely excluded. Trace left pleural effusion is noted." - Influenza: Tamiflu x 5 days - Blood cultures 12/29: Staphylococcus aureus (MRSA) in 1 of 4 bottles. - Repeat blood cultures 01/02: No growth to date. - TTE on 01/03 no clear evidence of vegetation seen. - Previously on Linezolid (12/29-01/02) - On Cefepime and Vancomcyin (01/02-) - Leukocytosis resolved. Afebrile. Nephrology and Cardiology on case Recommendations - MRSA Bacteremia: Continue Vancomycin IV for 14 days. First dose was given on 01/04. Administered on dialysis days. - Cardiology consulted for TTE/SATISH to eval for possible endocarditis. Follow up with results. - moisture associated dermatitis: Apply calazime cream to buttocks - Nutritional supplementation Case discussed with Allie Alfaro
--- NOTE | 2023-01-06 11:43 | P.PN ---
(S) Pt seen lying in bed, denies any acute CP or dyspnea (O) Vitals reviewed in the EMR General: In no apparent distress, elderly, chronically ill appearing HEENT: Atraumatic, Normocephalic Neck: Supple Respiratory: Non tachypnec, poor effort, no rhonchi Cardiovascular: No edema, Regular rate/rhythm, Normal S1 S2, upper chest PPM Gastrointestinal: Soft and benign, Non-distended, No tenderness Musculoskeletal: No swelling, No tenderness, Other (Rt UE AVF with thrill and bruit) Integumentary: No rashes Neurological: Awake, Normal speech, Normal tone, Other (Flat affect) Conclusions/Impression: A/P) 1. ESRD 2nd to presumed HTN/DM on HD for several years per reports, last HD yesterday, cont TTS, metab profile stable 2. Chest pain unspecified on admission -mild troponin leak on admission in the setting of her ESRD and other. Cont medical management 3. Positive influenza without overt PNA on admission -s/p tamiflu course 4. Abnormal findings in urine, pyuria, recurrent cystitis, asymptomatic currently. Vanc resistance Enterococcus F earlier in the mo, treated with Linezolid 5. MDD per history and pt acknowledged depression symptoms in the past, recommend SW reviewing PHQ-9 with pt and will defer to primary team to adjust her medications/other. Ti Glover MD, AZRA
--- NOTE | 2023-01-06 13:48 | ECHO ---
HEIGHT: 5 ft 3 in WEIGHT: 142 lb 0 oz DATE OF STUDY: 01/06/[address]: Anthony White MD 2-DIMENSIONAL: YES M.MODE: NO DOPPLER: NO COLOR FLOW: YES TDS: PORTABLE: YES DEFINITY: BUBBLE STUDY: DIAGNOSIS: FOCUSED ECHO ON VALVES/ VEGETATION CARDIAC HISTORY: CATHERIZATION: SURGERY: PROSTHETIC VALVE: PACEMAKER: YES MEASUREMENTS (cm) DIASTOLIC (NORMALS) SYSTOLIC (NORMALS) IVSd (0.6-1.2) LA Diam (1.9-4.0) LVEF % LVIDd (3.5-5.7) LVIDs (2.0-3.5) %FS % LVPWd (0.6-1.2) Ao Diam (2.0-3.7) 2 DIMENSIONAL ASSESSMENT: RIGHT ATRIUM: LEFT ATRIUM: RIGHT VENTRICLE: LEFT VENTRICLE: TRICUSPID VALVE: MITRAL VALVE: PULMONIC VALVE: AORTIC VALVE: PERICARDIAL EFFUSION: AORTIC ROOT: LEFT VENTRICULAR WALL MOTION: DOPPLER/COLOR FLOW: COMMENTS: 1. FOCUSED ECHOCARDIOGRAM TO EVALUATE FOR VEGETATION 2. NO CLEAR VEGETATION IS SEEN TECHNOLOGIST: ALVIN GUERRA
--- NOTE | 2023-01-06 16:20 | P.PN ---
Subjective Date of Service: 01/06/23 Chief Complaint: Leukocytosis; altered mental status No new changes. She denies any new symptoms. Plan for repeat transthoracic echocardiogram today to evaluate for valvular vegetations per Dr. Wilkins - recommendations appreciated. She denies any fevers, chills, chest pain, or shortness of breath. Review of Systems 10-point ROS is otherwise unremarkable General: Weakness (generalized) Physical Examination - Vital Signs Temperature: 97.3 F Blood Pressure: 136/54 Pulse: 80 Respirations: 16 Pulse Ox (%): 98 - Studies Medications List Reviewed: Yes Assessment And Plan - Plan - Physical Exam General: Alert, In no apparent distress, Oriented x3 HEENT: Atraumatic, Mucous membr. moist/pink, Sclerae nonicteric Respiratory: Diminished, Crackles/rales (faint bibasilar) Cardiovascular: Regular rate/rhythm, Systolic murmur, Edema (1+ BLE) Gastrointestinal: Normal bowel sounds, Soft, Non-distended, No tenderness Musculoskeletal: No clubbing Integumentary: No rashes Neurological: Normal speech, Normal affect # Severe Viral Sepsis suspect secondary to Influenza Infection with concern for Superimposed Bacterial Pneumonia and Methicillin-Resistant Staphylococcus Aureus Bacteremia # Acute Toxic Metabolic Encephalopathy likely due to above - resolved # History of Vancomycin-Resistant Enterococcus Faecium UTI She met SIRS criteria based on HR > 90 bpm, RR > 20 breaths/min, and WBC > 12,000 and the suspected source is pulmonary. Severe sepsis is suspected due to concern for tissue hypoperfusion/organ dysfunction based on coagulopathy (INR > 1.5) and lactic acid > 2 mmol/L. - Consult Infectious Diseases and spoke with LEAD SHOP OPERATOR Lylei - recommendations appreciated - Sepsis order set was initiated - Lactate trend was 2.2 -> 1.9 - Procalcitonin 3.35 - Chest x-ray (01/02) = "findings suggestive of CHF. Left basilar/retrocardiac airspace opacity may relate to atelectasis or developing airspace disease." - Blood cultures drawn: 05/25 positive for MRSA. Repeat blood cultures with NGTD - Broad spectrum antibiotics started: Vancomycin + Cefepime - In regards to fluids: - 30 mL/kg of IV fluids was not administered given SBP > 90, MAP > 65, lactic acid < 4 # Acute on Chronic Decompensated Congestive Heart Failure with Preserved Ejection Fraction - Consult Cardiology and spoke with Dr. Wilkins - recommendations appreciated - Transthoracic echocardiogram (01/03/2023) = "1. normal left ventricular ejection fraction 55-60% 2. normal wall motion 3. severe mitral regurgitation 4. mild aortic insufficiency 5. mild tricuspid regurgitation 6. no clear vegetation is seen on this exam 7. 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
[2023-01-06] MEDS: ESCITALOPRAM 20 MG TAB PO SCH (22:14)
[2023-01-06] MEDS: PRAMIPEXOLE 0.25 MG TAB PO SCH (22:14)
[2023-01-07 04:33] LABS: Magnesium 1.9 mg/dL (1.6-2.4); Phosphorus 3.1 mg/dL (2.5-4.9)
[2023-01-07 07:45] LABS: Protime INR 1.45
[2023-01-07] MEDS: NEPRO SHAKE 237 ML CAN PO SCH (09:00)
[2023-01-07] MEDS: ISOSORBIDE MONO SR 60 MG TAB PO SCH (09:17)
[2023-01-07] MEDS: PANTOPRAZOLE 40MG TABLET PO SCH (09:17)
[2023-01-07] MEDS: ASPIRIN EC 81 MG TAB PO SCH (09:17)
[2023-01-07] MEDS: AMINO ACIDS/PROTEIN HYDROLYS 30 ML LIQUID.PKT PO SCH (09:18)
[2023-01-07] MEDS: FUROSEMIDE 40 MG TABLET PO SCH (09:18)
[2023-01-07] MEDS: CLOPIDOGREL 75 MG TABLET PO SCH (09:18)
--- NOTE | 2023-01-07 10:14 | P.DS ---
Admission Date: 12/29/22 Discharge Date: 01/07/23 Disposition: TRANSFER TO CORRECTION Comment: [facility] Discharge Condition: GOOD Reason for Admission: Leukocytosis; altered mental status Consultations: 1. Nephrology 2. Infectious Diseases 3. Cardiology Hospital Course: DIAGNOSES: # Severe Viral Sepsis suspect secondary to Influenza A/B Infection with concern for Superimposed Bacterial Pneumonia and Methicillin-Resistant Staphylococcus Aureus Bacteremia # Acute Toxic Metabolic Encephalopathy likely due to above - resolved # Acute on Chronic Decompensated Congestive Heart Failure with Preserved Ejection Fraction # Suspect Type II Non-ST Segment Elevation Myocardial Infarction (Demand Ischemia) due to above # Hyperglycemia in Type II Diabetes Mellitus # End-Stage Renal Disease on [facility] iHD # History of Vancomycin-Resistant Enterococcus Faecium UTI # Coronary Artery Disease s/p PCI # Hypertension # Hyperlipidemia # Deconditioning # History of Right Popliteal Deep Venous Thrombosis # Rheumatoid Arthritis HOSPITAL COURSE: Ms. Latricia Cadet is a pleasant 72 year old female with a past medical history significant for end-stage renal disease on [facility] iHD, chronic diastolic congestive heart failure, coronary artery disease s/p PCI, type II diabetes mellitus, rheumatoid arthritis, hypertension, and hyperlipidemia who was admitted to the [facility] on 12/29/2022 for altered mental status. She was admitted to the Medicine service. Upon further evaluation, she was found to have viral sepsis secondary to an influenza A/B infection as well as an acute congestive heart failure exacerbation. Her chest x-ray revealed, "Mild CHF." Her CT chest revealed, "cardiomegaly, central interstitial prominence, and bilateral basilar dependent groundglass opacities, could reflect the degree of central congestion/edema. Superimposed pneumonia is considered less likely but cannot be entirely excluded. Trace left pleural effusion is noted." She was thought to have a potential superimposed bacterial pneumonia, so she was started on IV antibiotics. 05/25 blood cultures returned positive for methicillin-resistant Staphylococcus Aureus. Infectious Diseases was consulted and she was evaluated by Dr. Montelongo. She was started on IV antibiotics and oseltamivir per ID recommendations. To evaluate for valvular vegetations, a transthoracic echocardiogram was obtained, which revealed, "1. normal left ventricular ejection fraction 55-60% 2. normal wall motion 3. severe mitral regurgitation 4. mild aortic insufficiency 5. mild tricuspid regurgitation 6. no clear vegetation is seen on this exam 7. left atrial enlargement." Cardiology was consulted for recommendations regarding the necessity of a transesophageal echocardiogram as well as management of her congestive heart failure. She was evaluated by Dr. Wilkins, who did not feel that a transesophageal echocardiogram was necessary given that her blood sterilized on repeat cultures. He recommended serial transthoracic echocardiograms. A repeat focused transthoracic echocardiogram revealed, "no clear vegetation is seen." With multiple hemodialysis sessions, her volume status improved. I spoke with Dr. Glover and Dr. Wilkins, who have both cleared her from their perspectives. Dr. Wilkins recommended a repeat transthoracic echocardiogram in 2 weeks to re-evaluate for valvular vegetations. In regards to her bacteremia, Dr. Montelongo has cleared her for discharge with a 14-day course of vancomycin 500 mg after dialysis sessions (end date: 01/16/2023). This morning, she reported feeling significantly better and requested to be discharged back to [facility]. On 01/07/2023, she was seen on morning rounds and deemed medically stable for discharge. She was discharged with instructions to schedule follow-up appointments with her PCP, with Nephrology (Dr. Marie), and with Cardiology (Dr. Wilkins). She was given the opportunity to ask questions and reported no further questions. Furthermore, all questions were answered to the best of my ability. A copy of this discharge summary will be sent to the above providers to facilitate continuity of care. Today, I personally spent 35 minutes on her case, of which greater than 50% of the time was spent in patient education, counseling, and coordination of care as described above. - Physical Exam General: Alert, In no apparent distress, Oriented x3 HEENT: Atraumatic, Mucous membr. moist/pink, Sclerae nonicteric Respiratory: Diminished, but clear to auscultation bilaterally Cardiovascular: Regular rate/rhythm, Systolic murmur, Edema (1+ BLE) Gastrointestinal: Normal bowel sounds, Soft, Non-distended, No tenderness Musculoskeletal: No clubbing Integumentary: No rashes Neurological: Normal speech, Normal affect Vital Signs/Physical Exam: Temp Pulse Resp BP Pulse Ox 97.3 F 79 18 140/63 97 01/07/23 08:00 01/07/23 09:18 01/07/23 08:00 01/07/23 09:18 01/07/23 08:00 Laboratory Data at Discharge: WBC 6.80 thou/uL (4.3-10.9) 01/02/23 06:53 Hgb 11.8 g/dL (12.0-15.0) L 01/02/23 06:53 Hct 36.9 % (36.0-45.0) 01/02/23 06:53 Plt Count 282 thou/uL (152-406) 01/02/23 06:53 PT 16.0 SECONDS (9.5-12.5) H 01/07/23 07:28 INR 1.45 01/07/23 07:28 Sodium 135 mEq/L (136-145) L 01/06/23 03:23 Potassium 3.8 mEq/L (3.5-5.1) D 01/06/23 03:23 BUN 18 mg/dL (7-18) 01/06/23 03:23 Creatinine 2.50 mg/dL (0.55-1.02) H 01/06/23 03:23 Glucose 104 mg/dL (74-106) 01/06/23 03:23 Phosphorus 3.1 mg/dL (2.5-4.9) 01/07/23 03:08 Magnesium 1.9 mg/dL (1.6-2.4) 01/07/23 03:08 Total Bilirubin 0.6 mg/dL (0.2-1.0) 01/02/23 06:53 AST 6 U/L (15-37) L 01/02/23 06:53 ALT < 10 U/L (13-56) L 01/02/23 06:53 Alkaline Phosphatase 106 U/L (45-117) 01/02/23 06:53 Home Medications: Sevelamer Carbonate [Renvela*] 2 tab PO TIDWM 01/02/22 Midodrine HCl 5 mg PO BID 07/19/22 Escitalopram [Lexapro*] 10 mg PO BEDTIME 12/24/22 Isosorbide Mononitrate [Isosorbide Mononitrate ER] 60 mg PO DAILY 12/24/22 Acetaminophen [Tylenol*] 650 mg PO Q4HP PRN 12/29/22 Calcitrol [Rocaltrol*] 0.5 mcg PO SEECOM 12/29/22 Doxazosin [Cardura*] 4 mg PO DAILY 12/29/22 Furosemide [Lasix*] 80 mg PO DAILY 12/29/22 Pantoprazole [Protonix Tab*] 40 mg PO DAILY 12/29/22 Pramipexole [Mirapex*] 0.25 mg PO BEDTIME 12/29/22 Clopidogrel Bisulfate [Plavix*] 75 mg PO DAILY 01/07/23 Nepro Shake [Nepro*] 237 ml PO BID can 01/07/23 Vancomycin/Water For Inj (Peg) [Vancomycin 500 mg/100 ml Bag] 500 mg IV AFTER EACH DIALYSIS 9 Days #1 piggyback 01/07/23 New Medications: Vancomycin/Water For Inj (Peg) [Vancomycin 500 mg/100 ml Bag] 500 mg IV AFTER EACH DIALYSIS 9 Days #1 piggyback Physician Discharge Instructions: - You are being discharged to [facility], once discharged from there: 1. Please call and schedule a follow-up appointment with your PCP in 3-5 days - Please have your PCP repeat your chest x-ray in 2-3 weeks to make sure your pneumonia has fully healed 2. Please call and schedule a follow-up appointment with Cardiology (Dr. Wilkins) in 3-5 days - Please have him repeat your echocardiogram in 2 weeks to re-evaluate for any heart infections 3. Please call and schedule a follow-up appointment with Nephrology (Dr. Marie) in 3-5 days Diet: Renal Activity: Fall precautions Followup: NONE,NONE [Primary Care Provider] - Lico Wilkins MD [ACTIVE - CAN ADMIT] - Manuel Marie DO [ACTIVE - CAN ADMIT] - Time spent managing pt's care (in minutes): 35
[2023-01-07 13:22] VITALS: BP 156/66; TEMP 98.2
== END 2023-01-07 18:00 | DRG 871 ==
LOC: ER 11:11 → ERHOLD 13:01 → 4TH 14:56
PROVIDERS: ADMIT Hospitalist; ATTEND Internal Medicine
PROC: 5A1D70Z Performance of Urinary Filtration, Intermittent, Less than 6 Hours Per Day (ICD-10-PCS; principal; 2022-12-30)
DX: A41.89 Other specified sepsis (principal); E43 Unspecified severe protein-calorie malnutrition; G92.8 Other toxic encephalopathy; J10.08 Influenza due to other identified influenza virus with other specified pneumonia; N18.6 End stage renal disease; J15.9 Unspecified bacterial pneumonia; I50.33 Acute on chronic diastolic (congestive) heart failure; I21.A1 Myocardial infarction type 2; E87.20 Acidosis, unspecified; N30.00 Acute cystitis without hematuria; I13.2 Hypertensive heart and chronic kidney disease with heart failure and with stage 5 chronic kidney disease, or end stage renal disease; J44.0 Chronic obstructive pulmonary disease with (acute) lower respiratory infection; F03.93 Unspecified dementia, unspecified severity, with mood disturbance; A41.02 Sepsis due to Methicillin resistant Staphylococcus aureus; R65.20 Severe sepsis without septic shock; E11.22 Type 2 diabetes mellitus with diabetic chronic kidney disease; E11.65 Type 2 diabetes mellitus with hyperglycemia; D63.1 Anemia in chronic kidney disease; L89.152 Pressure ulcer of sacral region, stage 2; M06.9 Rheumatoid arthritis, unspecified; I95.89 Other hypotension; G47.00 Insomnia, unspecified; E87.6 Hypokalemia; E86.0 Dehydration; D72.829 Elevated white blood cell count, unspecified; I08.1 Rheumatic disorders of both mitral and tricuspid valves; I25.10 Atherosclerotic heart disease of native coronary artery without angina pectoris; R77.8 Other specified abnormalities of plasma proteins; Z99.2 Dependence on renal dialysis; Z88.5 Allergy status to narcotic agent; Z95.5 Presence of coronary angioplasty implant and graft; Z95.9 Presence of cardiac and vascular implant and graft, unspecified; Z68.25 Body mass index [BMI] 25.0-25.9, adult; Z79.899 Other long term (current) drug therapy; Z86.718 Personal history of other venous thrombosis and embolism; Z90.710 Acquired absence of both cervix and uterus; Z86.711 Personal history of pulmonary embolism; Z95.810 Presence of automatic (implantable) cardiac defibrillator; Z87.891 Personal history of nicotine dependence
CPT/HCPCS: 36415; 71045; 71250; 80048; 80053; 80162; 80202; 82607; 82947; 83605; 83735; 83880; 84100; 84145; 84484; 85025; 85610; 87040; 87077; 87186; 87205; 87340; 87635; 87804; 90935; 93005; 93306; 93308; 97161; 97530; 99285; J0692; J1644; J2020; J7040

== ENCOUNTER 2023-03-24 07:18 | Observation (INO) | payer OTHER ==
--- OUTSIDE RECORDS SUMMARY | 2023-03-24 07:29 | XMS REPORT | Continuity of Care Document ---
:1950 Author Organization [facility] t Address [address] [facility] [address] [place] [address] Care Team Providers Name Role Phone Pcp, Patient Does Not Have A Primary Care Physician [phone] Attending Clinician Unavailable Greg Fuentes Attending Clinician Unavailable Anirudh Philippe Rahil Attending Clinician Unavailable Doctor Unassigned, Woody Attending Clinician Unavailable Luc Alvarez Attending Clinician Alannah Renner MD Attending Clinician ANNALEE BEY Attending Clinician Unavailable Annalee Bey MD Attending Clinician Mauro Mendoza MD Attending Clinician ALANNAH RENNER Attending Clinician Unavailable Trinidad Menard MD Attending Clinician Corrine Osuna MD Attending Clinician Edwin Kaur MD Attending Clinician [phone] John HOLLIDAY, Shanon Vidal Attending Clinician [phone] Tim HOLLIDAY, Tammy Thompson Attending Clinician Armen HOLLIDAY, Edwin Attending Clinician Scot HOLLIDAY, Tasneem Attending Clinician Savannah HOLLIDAY, Annalee Attending Clinician Leodan Rebolledo MD Attending Clinician Josemanuel Vences MD Attending Clinician Andre Navarro Attending Clinician Juan BETH, Grazyna Magana Attending Clinician Abbie HOLLIDAY, Joanna Attending Clinician Provider, Unknown Attending Clinician Unavailable Zulema Donald DO Attending Clinician Michaela Attending Clinician Unavailable MD CORRINE OSUNA Attending Clinician Unavailable DAVID HIGUERA Attending Clinician Unavailable SHAKEEL NARANJO Attending Clinician Unavailable SARAI SANDRA Attending Clinician Unavailable [id number] Admitting Clinician Unavailable Radha Cabrera Admitting Clinician Unavailable Anirudh Philippe Rahil Admitting Clinician Unavailable SHIRLEY PARKS NKHOWARD Admitting Clinician Unavailable CORRINE OSUNA Admitting Clinician Unavailable TAMMY DUMONT Admitting Clinician Unavailable Michaela Admitting Clinician Unavailable MD CORRINE OSUNA Admitting Clinician Unavailable SARAI SANDRA Admitting Clinician Unavailable Payers Payer Name Policy Type Policy Number Effective Date Expiration Date S gus [facility] [id number] 2021 (NON-CONTRACTED) 00:00:00 [facility] [id number] 2021 [facility] 00:00:00 [facility] [id number] [facility] [id number] [facility] - [id number] [facility] (O) Problems Condition Condition Condition Status Onset Resolution Last Treating Co mments Source Name Details Category Date Date Treatment Clinician Date Complicati Complicati Disease Active 2022-[address] [facility] [...] l ESRD (end ESRD (end Disease Active 2020-0 [facility] stage stage 2-19 st renal [...] ethodi rosis of rosis of 08-[facility] [place]: Hospita coronary coronary 00 l artery of artery of [place] heart heart without without angina angina pectoris [...] (chronic 8-27 ity of kidney kidney 00:00: [place] disease) disease) 00 Medica l stage 4, stage 4, Branch GFR 15-29 GFR 15-29 ml/min ml/min Type 2 Type 2 Disease Active Overview: Univer s diabetes diabetes Formattin ity of mellitus mellitus g of this [place] as with with note Medical diabetic diabetic might be Bran ch nephropath nephropath different y y from the original. follows with Dr. Ngo in [place] Neuropathy Neuropathy Disease Active Overview : Univers Formattin ity of g of this [place] note Medical might be Branch different from the original. in feet and legs Hyperchole Hyperchole Disease Active Overview : Univers steremia steremia Formattin ity of g of this [place] note Medical might be Branch different from the original. follows with Dr. Higuera HTN HTN Disease Active Overview: Univer s (hypertens (hypertens Formattin ity of ion) ion) g of this [place] note Medical might be Branch different from the original. follows with Dr. Higuera Atrial Atrial Disease Active Overview: [facility] s fibrillati fibrillati Formattin ity of on on g of this [place] note Medical might be Branch different from the original. follows with Dr. Higuera Allergies, Adverse Reactions, Alerts Allergy Allergy Status Severity Reaction(s) Onset Inactive Treating Comm ents Source Name Type Date Date Clinician No Known DA Active U [facility] Allergie 1-17 Clear s 00:00: An 00 [facility] Hydrocod Propensi Active GI "not an Metho di one ty to Intolerance -12 allergy, st adverse 00:00: but it Hospita reaction 00 upsets my l s to stomach drug every time I take it" No Known DA Active U [facility] Allergie 9-11 Clear s 00:00: An 00 [facility] NO KNOWN Allergy Active [facility] NO KNOWN Drug Active Univers ALLERGIE Class ity of S [place] [facility] [place] Family History Family Member Diagnosis Comments Start Date Stop Date Source Natural sister Breast cancer [facility] Natural sister Cancer [facility] Natural brother Cancer [facility] Natural brother Colon cancer [facility] Natural brother [facility] Maternal grandmother Brain cancer [facility] Maternal grandmother [facility] Natural mother Cancer [facility] Natural mother Uterine cancer Method [facility] Social History Social Habit Start Date Stop Date Quantity Comments Source History SDOH Alevism Alcohol Std Drinks Hospit al Gender identity [facility] Sexual orientation [facility] Tobacco use and 2022-01-08 2022-01-[address] [facility] exposure 00:00:00 00:00:00 tobacco non-user Medical Center History of Social 2021-09-16 2021-09-[address] function 00:00:00 00:00:00 Hospital Alcohol intake 2021-09-14 2021-09-14 Current Alevism 00:00:00 00:00:00 non-drinker of Hospital alcohol (finding) History [facility] 2020-04-05 2020-04-05 1 Alevism Alcohol Frequency 00:00:00 00:00:00 Hospita l History [facility] 2020-04-05 2020-04-05 1 Alevism Alcohol Binge 00:00:00 00:00:00 Hospital Sex Assigned At [address] [facility] 00:00:00 00:[facility]:00 Medical Center Smoking Status Start Date Stop Date Source Never smoked tobacco [facility] Medications Ordered Filled Start Stop Current Ordering Indication Dosage Frequency Signature Comments Components Source Medication Medication Date Date Medication? Clinician (SIG) Name Name aspirin 81 Yes 81mg QD Take [address] MG chewable 8-30 by mouth Luke s tablet 16:49: daily. [address] apixaban Yes 2.5mg Q.5D Take 2.5 [...] MG 16:49: mouth Medical tablet 03 nightly. [place] aspirin 81 0 Yes 81mg QD Take [address] MG chewable 8-30 by mouth Luke s tablet 16:49: daily. [address] apixaban Yes 2.5mg Q.5D Take 2.[address] (Eliquis) 8-30 mg by [facility] 2.5 mg Tab 16:49: mouth 2 Medi [place] tablet 03 (two) Center times daily. pramipexole 2021-0 Yes 1mg QD Take [address] (MIRAPEX) 1 8-30 by mouth Luke s MG tablet 16:49: nightly. [address] semaglutide 2021-0 Yes .25mg Inject [facility]I [...] MG 16:49: mouth Medical tablet 03 nightly. [place] aspirin 81 2021-0 Yes 81mg QD Take [address] MG chewable 8-30 by mouth Luke s tablet 16:49: daily. [address] apixaban 2021-0 Yes 2.5mg Q.5D Take 2.[address] (Eliquis) 8-30 mg by [facility]ukes 2.5 mg Tab 16:49: mouth 2 Medi [place] tablet 03 (two) Center times daily. pramipexole 2021-0 Yes 1mg QD Take [address] (MIRAPEX) 1 8-30 by mouth Luke s MG tablet 16:49: nightly. [address] semaglutide 0 Yes .25mg Inject [facility] (Ozempic) 8-30 0.25 mg Lukes 0.25 mg or 16:49: subcutaneo M edical 0.5 mg(2 03 usly every Cente r mg/1.5 mL) 7 days PnIj Every Monday . pantoprazol 2021-0 Yes 40mg QD Take [address] [facility] 8-30 by mouth Lukes (PROTONIX) 16:49: daily. Medic al 40 MG 03 Center tablet traZODone 2022-0 Yes 100mg QD Take [address] (DESYREL) 8-30 mg by Lukes 100 MG 16:49: mouth Medical tablet 03 nightly. [place] aspirin 81 2021-0 Yes 81mg QD Take [address] MG chewable 8-30 by mouth Luke s tablet 16:49: daily. [address] apixaban 2021-0 Yes 2.5mg Q.5D Take 2.[address] (Eliquis) 8-30 mg by Lukes 2.5 mg Tab 16:49: mouth 2 Medi [place] tablet 03 (two) Center times daily. pramipexole 2021-0 Yes 1mg QD Take [address] (MIRAPEX) 1 8-30 by mouth Luke s MG tablet 16:49: nightly. [address] semaglutide 0 Yes .25mg Inject [facility] (Ozempic) 8-30 0.25 mg Lukes 0.25 mg or 16:49: subcutaneo M edical 0.5 mg(2 03 usly every Cente r mg/1.5 mL) 7 days PnIj Every Monday . pantoprazol 0 Yes 40mg QD Take [address] e 8-30 by mouth Lukes (PROTONIX) 16:49: daily. Medic al [address] [place] [address] tablet traZODone 0 Yes 100mg QD Take [address] (DESYREL) 8-30 mg by Lukes 100 MG 16:49: mouth Medical tablet 03 nightly. [place] aspirin 81 2021-0 Yes 81mg QD Take [address] MG chewable 8-30 by mouth Luke s tablet 16:49: daily. [address] apixaban 2021-0 Yes 2.5mg Q.5D Take 2.[address] (Eliquis) 8-30 mg by Lukes 2.5 mg Tab 16:49: mouth 2 Medi [place] tablet 03 (two) Center times daily. pramipexole 2021-0 Yes 1mg QD Take [address] (MIRAPEX) 1 8-30 by mouth Luke s MG tablet 16:49: nightly. [address] semaglutide 0 Yes .25mg Inject CHI [...] by mouth Luke s tablet 16:49: daily. [facility] 03 [place] apixaban 2021-0 Yes 2.5mg Q.5D Take 2.[address] (Eliquis) 8-30 mg by Lukes 2.5 mg Tab 16:49: mouth 2 Medi [place] tablet 03 (two) Center times daily. pramipexole 2021-0 Yes 1mg QD Take [address] (MIRAPEX) 1 8-30 by mouth Luke s MG tablet 16:49: nightly. Medi [place] 03 [place] semaglutide 0 Yes .25mg Inject [facility] [...] MG 16:49: mouth Medical tablet 03 nightly. [place] aspirin 81 2021-0 Yes 81mg QD Take [address] MG chewable 8-30 by mouth Luke s tablet 16:49: daily. [facility] 03 [place] apixaban 2021-0 Yes 2.5mg Q.5D Take 2.[address] (Eliquis) 8-30 mg by Lukes 2.5 mg Tab 16:49: mouth 2 Medi [place] tablet 03 (two) Center times daily. pramipexole 2021-0 Yes 1mg QD Take [address] (MIRAPEX) 1 8-30 by mouth Luke s MG tablet 16:49: nightly. [facility] 03 [place] semaglutide 2021-0 Yes .25mg Inject [facility] [...] MG 16:49: mouth Medical tablet 03 nightly. [place] aspirin 81 2021-0 Yes 81mg QD Take [address] MG chewable 8-30 by mouth Luke s tablet 16:49: daily. [facility] 03 [place] apixaban 0 Yes 2.5mg Q.5D Take 2.[address] (Eliquis) 8-30 mg by [facility]ukes 2.5 mg Tab 16:49: mouth 2 Medi [place] tablet 03 (two) Center times daily. pramipexole 2021-0 Yes 1mg QD Take [address] (MIRAPEX) 1 8-30 by mouth Luke s MG tablet 16:49: nightly. [facility] 03 [place] semaglutide 0 Yes .25mg Inject [facility] [...] MG 16:49: mouth Medical tablet 03 nightly. [place] aspirin 81 2022-0 Yes 81mg QD Take [address] MG chewable 8-30 by mouth Luke s tablet 16:49: daily. Medical 03 Center apixaban Yes 2.5mg Q.5D Take [...] MG 16:49: mouth Medical tablet 03 nightly. [place] hydrALAZINE 2021- No 25mg Q.[id number] Take [address] (APRESOLINE 8-30 08-30 [id number] by mouth 3 [facility] ) 25 MG [...] [address] (CARDURA) 4 01-1830 by mouth Christopher es MG tablet 11:55: [...] :00 daily. Center hydrALAZINE 2021- No 25mg Q.[id number] Take [address] (APRESOLINE 01-18- [id number] by mouth 3 [facility] ) 25 MG [...] [address] (CARDURA) 4 01-1830 by mouth Christopher es MG tablet 11:55: [...] 00:00 subcutaneo Me dical SEMGLEE) 27 :00 ly Center 100 unit/mL nightly injection Use as [...] :00 daily. Center hydrALAZINE 2021- No 25mg Q.[id number] Take [address] (APRESOLINE 01-18- [id number] by mouth 3 [facility] ) 25 MG [...] :00 daily. Center hydrALAZINE 2021- No 25mg Q.[id number] Take [address] (APRESOLINE 01-18 [id number] by mouth 3 [facility] ) 25 MG [...] s 11:55: 00:00 nightly. Medical 27 :00 [place] insulin 2021- No 10U Inject [address] aspart 01-18-30 Units Lukes U-100 11:55: 00:00 subcutaneo Medic al (NovoLOG) 27 :00 us 3 Center 100 unit/mL (three) (3 mL) InPn times daily before meals. calcitrioL 2021- No .25ug QD Take 0.[address] (ROCALTROL) 01-18-30 mcg by [facility]ukes 0.25 MCG 11:55: 00:00 mouth Medical capsule 27 :00 daily. [place] hydrALAZINE 2021- No 25mg Q.[id number] Take [address] (APRESOLINE 01-18- [id number] by mouth 3 [facility] ) 25 MG [...] :00 daily. Center hydrALAZINE 2021- No 25mg Q.[id number] Take [address] (APRESOLINE 01-18- [id number] by mouth 3 [facility] ) 25 MG [...] Take [address] (LASIX) 80 8-30 08-30 by mouth 2 Camille kes [...] :00 daily. Center hydrALAZINE 2021- No 25mg Q.[id number] Take [address] (APRESOLINE 01-18 [id number] by mouth 3 [facility] ) 25 MG [...] nightly. Med ical 10 MG 27 :00 [place] tablet melatonin 2021- No 10mg QD Take [address] 10 mg TbDL 01-18-30 by mouth Luke s 11:55: 00:00 nightly. Medical 27 :00 [place] insulin 2021- No 10U Inject [address] aspart 01-18 08-30 Units [facility]ukes U-100 11:55: 00:00 subcutaneo Medic al (NovoLOG) 27 :00 unm hospital 3 Center 100 unit/mL (three) (3 mL) InPn times daily before meals. calcitrioL 2021- No .25ug QD Take 0.[address] (ROCALTROL) 01-18 08-30 mcg by Lukes 0.25 MCG 11:55: 00:00 mouth Medical capsule 27 :00 daily. Center hydrALAZINE 2021- No 25mg Q.[id number] Take [address] (APRESOLINE 01-18-30 [id number] by mouth 3 [facility] ) 25 MG [...] 00:00 subcutaneo Me dical SEMGLEE) 27 :00 ly Center 100 unit/mL nightly injection Use as [...] 0.[address] (ROCALTROL) 01-18-30 mcg by Bautista 0.25 MCG 11:55: 00:00 mouth Medical capsule [...] 1{tbl} Take [address] -acetaminop 8-02-17 tablet by Camille pablo (NORCO 00:00: 23:59 mouth Medic al 5-325) 00 :00 every 6 Center 5-325 mg (six) per tablet hours as needed for Pain (Right knee septic joint) for up to 30 days. Max Daily Amount: 4 tablets HYDROcodone 2021- No 1{tbl} Take [address] -acetaminop 8-02-17 tablet by Camille pablo (NORCO 00:00: 23:59 [...] Max Daily Amount: 4 tablets vancomycin 2021-0 2021- No 125mg Q2D Take [...] 125mg Q.5D Take 1 [facility] (Vancocin) 5- 05-[address] 125 MG 00:00: 04:59 [...] for 14 doses. vancomycin 2021- No 125mg Q.[id number] Take 1 Methodi (Vancocin) 09-24-[id number] 125 MG 00:00: 04:59 3D (125 mg Hospita capsule 00 :00 total) by l mouth 3 (three) times a day for 8 doses. vancomycin 2021- No 125mg Q.[id number] Take 1 [facility] (Vancocin) 09-24 05-[id number] 125 MG 00:00: 04:59 3D (125 mg Hospita capsule 00 :00 total) by l mouth 3 (three) times a day for 8 doses. vancomycin 2021- No 125mg Q.[id number] Take 1 [facility] (Vancocin) 09-24 05-[id number] 125 MG 00:00: 04:59 3D (125 mg Hospita capsule 00 :00 total) by l mouth 3 (three) times a day for 8 doses. vancomycin 2021- No 125mg Q.[id number] Take 1 [facility] (Vancocin) 5-06 05-[id number] 125 MG 00:00: 04:59 3D [...] 03 (two) l times a day. apixaban 0 Yes 2.5mg Q.5D Take 2.5 [...] Take 1 mg M ethodi (BUMEX) 1 4-16 09-[address] MG tablet 18:55: 00:00 daily. Hospi ta 55 :00 l BUMETanide 2021-2021- No 1mg QD Take 1 mg M ethodi (BUMEX) 1 4-16 09-[address] MG tablet 18:55: [...] 51 daily. l hydrALAZINE 2021- No 25mg Q.[id number] Take 1 [facility] (APRESOLINE -10-17 [id number] tablet (25 st ) 25 MG 00:00: 04:59 3D mg total) [facility] tablet 00 :00 by mouth l every 8 (eight) hours for 30 days. aspirin 81 2021- No 81mg QD Chew 1 Meth ramiro mg chewable 09-1629 tablet (81 s t tablet 00:00: 04:59 [...] for 30 days. hydrALAZINE 2021- No 25mg Q.[id number] Take 1 [facility] (APRESOLINE 4-28 -29 [id number] tablet (25 st ) 25 MG 00:00: [...] for 30 days. hydrALAZINE 2021- No 25mg Q.[id number] Take 1 [facility] (APRESOLINE 4-28 05-29 [id number] tablet (25 st ) 25 MG 00:00: [...] for 30 days. hydrALAZINE 2021-2021- No 25mg Q.[id number] Take 1 [facility] (APRESOLINE 09-16- [id number] tablet (25 st ) 25 MG 00:00: [...] for 30 days. hydrALAZINE 2021-2021- No 25mg Q.[id number] Take 1 [facility] (APRESOLINE 09-16- [id number] tablet (25 st ) 25 MG 00:00: [...] for 30 days. hydrALAZINE 2021- No 25mg Q.[id number] Take 1 [facility] (APRESOLINE 09-16 [id number] tablet (25 st ) 25 MG 00:00: [...] .1mg QD Take 0.1 [facility] (CATAPRES) - 03-[address] 0.1 MG 19:46: [...] times a day. hydrALAZINE 2021- No 100mg Q.[id number] Take 100 Methodi (APRESOLINE -25 -[id number] ) 100 MG 19:46: 00:00 3D mouth 3 Hospi ta tablet 31 :00 (three) l times a day. apixaban 2021- No 2.5mg Q.5D Take 2.5 [facility] (ELIQUIS) - 03-[address] 2.5 mg 19:46: [...] times a day. hydrALAZINE 2021- No 100mg Q.[id number] Take 100 [facility] (APRESOLINE 3-25 03-[id number] ) 100 MG 19:46: [...] for 30 days. hydrALAZINE 2021- No 50mg Q.[id number] Take 1 [facility] (APRESOLINE -13 09- [id number] tablet (50 st ) 50 MG 00:00: 00:00 3D mg total) [facility] tablet 00 :00 by mouth l every 8 (eight) hours for 30 days. insulin 2021-2021- No 12U QD Inject Methodi GLARGINE 08-13- [...] for 30 days. hydrALAZINE 2021-2021- No 50mg Q.[id number] Take 1 [facility] (APRESOLINE 3-25 -28 [id number] tablet (50 st ) 50 MG 00:00: 00:00 3D mg total) [facility] tablet 00 :00 by mouth l every 8 (eight) hours for 30 days. insulin 2021- No 20U QD Inject 0.2 [facility] GLARGINE 06-05 mL (20 st (LANTUS) 00:00: 05:59 Units [...] morning for 30 days. levalbutero 2021- No [id number] 1.25mg Q8H Take 3 mL Methodi l [...] for 30 days. insulin 2021- No 5U Q.[id number] Inject M ethodi LISPRO 06-04 [id number] 0.05 mL (5 st (ADMELOG) 00:00: 05:59 [...] to 30 days. budesonide 2020-05 Yes 3mg Q.[id number] Take 3 mg Methodi EC 2-[id number] mouth 3 [address] (ENTOCORT 00:00: 3D (three) Hospi ta EC) 3 mg 24 00 times a l hr capsule day. budesonide 2020-05 Yes 3mg Q.[id number] Take 3 mg Methodi EC 2-12 [id number] by mouth 3 st (ENTOCORT 00:00: 3D (three) Hospi ta EC) 3 mg 24 00 times a l hr capsule day. budesonide 2020-05 Yes 3mg Q.[id number] Take 3 mg Methodi EC 2-12 [id number] by mouth 3 st (ENTOCORT 00:00: 3D (three) Hospi ta EC) 3 mg 24 00 times a l hr capsule day. budesonide 2020-05 Yes 3mg Q.[id number] Take 3 mg Methodi EC 2-12 [id number] by mouth 3 st (ENTOCORT 00:00: 3D (three) Hospi ta EC) 3 mg 24 00 times a l hr capsule day. budesonide 2020-05 Yes 3mg Q.[id number] Take 3 mg Methodi EC 2-12 [id number] by mouth 3 st (ENTOCORT 00:00: 3D (three) Hospi ta EC) 3 mg 24 00 times a l hr capsule day. budesonide 2020-05 Yes 3mg Q.[id number] Take 3 mg Methodi EC 2-12 [id number] by mouth 3 st (ENTOCORT 00:00: 3D (three) Hospi ta EC) 3 mg 24 00 times a l hr capsule day. budesonide 2020-05 Yes 3mg Q.[id number] Take 3 mg Methodi EC 2-12 [id number] by mouth 3 st (ENTOCORT 00:00: 3D (three) Hospi ta EC) 3 mg 24 00 times a l hr capsule day. budesonide 2020-05 Yes 3mg Q.[id number] Take 3 mg Methodi EC 2-12 [id number] by mouth 3 st (ENTOCORT 00:00: 3D (three) Hospi ta EC) 3 mg 24 00 times a l hr capsule day. budesonide 2020-05 Yes 3mg Q.[id number] Take 3 mg Methodi EC 2-12 [id number] by mouth 3 st (ENTOCORT 00:00: 3D (three) Hospi ta EC) 3 mg 24 00 times a l hr capsule day. budesonide 2020-05 Yes 3mg Q.[id number] Take 3 mg Methodi EC 2-12 [id number] by mouth 3 [address] (ENTOCORT 00:00: 3D (three) Hospi ta EC) 3 mg 24 00 times a l hr capsule day. budesonide 2020-05 Yes 3mg Q.[id number] Take 3 mg Methodi EC 2-12 [id number] by mouth 3 st (ENTOCORT 00:00: 3D [...] Under breast and between legs allopurinol Yes [id number] 150mg Take 150 Univers (ZYLOPRIM) 1-04 mg by ity of 100 mg 15:21: mouth [place] tablet 32 daily. Medical Branch CALCIUM Yes .25mg Take 0.25 Univ ers CARBONATE/V 1-04 mg by ity of ITAMIN D3 15:21: mouth [place] (VITAMIN 32 daily. Medical D-3 ORAL) Branch allopurinol Yes [id number] 150mg Take 150 Univers (ZYLOPRIM) 1-04 mg by ity of 100 mg 15:21: mouth [place] tablet 32 daily. Medical Branch CALCIUM Yes .25mg Take 0.25 Univ ers CARBONATE/V 1-04 mg by ity of ITAMIN D3 15:21: mouth [place] (VITAMIN 32 daily. Medical D-3 ORAL) Branch allopurinol Yes [id number] 150mg Take 150 Univers (ZYLOPRIM) 1-04 mg by ity of 100 mg 15:21: mouth [place] tablet 32 daily. Medical Branch CALCIUM Yes .25mg Take 0.25 Univ ers CARBONATE/V 1-04 mg by ity of ITAMIN D3 15:21: mouth [place] (VITAMIN 32 daily. Medical D-3 ORAL) Branch allopurinol Yes [id number] 150mg Take 150 Univers (ZYLOPRIM) 1-04 mg by ity of 100 mg 15:21: mouth [place] tablet 32 daily. Medical Branch CALCIUM Yes .25mg Take 0.25 Univ ers CARBONATE/V 1-04 mg by ity of ITAMIN D3 15:21: mouth [place] (VITAMIN 32 daily. Medical D-3 ORAL) Branch allopurinol Yes [id number] 150mg Take 150 Univers (ZYLOPRIM) 1-04 mg by ity of 100 mg 15:21: mouth [place] tablet 32 daily. Medical Branch CALCIUM Yes .25mg Take 0.25 Univ ers CARBONATE/V 1-04 mg by ity of ITAMIN D3 15:21: mouth [place] (VITAMIN 32 daily. Medical D-3 ORAL) Branch allopurinol Yes [id number] 150mg Take 150 Univers (ZYLOPRIM) 1-04 mg by ity of 100 mg 15:21: mouth [place] tablet 32 daily. Medical Branch allopurinol Yes [id number] 150mg Take 150 Univers (ZYLOPRIM) 1-04 mg by ity of 100 mg 15:21: mouth [place] tablet 32 daily. Medical Branch CALCIUM Yes .25mg Take 0.25 Univ ers CARBONATE/V 1-04 mg by ity of ITAMIN D3 15:21: mouth [place] (VITAMIN 32 daily. Medical D-3 ORAL) Branch allopurinol Yes [id number] 150mg Take 150 Univers (ZYLOPRIM) 1-04 mg [...] daily. Medical D-3 ORAL) Branch allopurinol Yes [id number] 150mg Take 150 Univers (ZYLOPRIM) 1-04 mg by ity of 100 mg 15:21: mouth [place] tablet 32 daily. Medical Branch CALCIUM Yes .25mg Take 0.25 Univ ers CARBONATE/V 1-04 mg by ity of ITAMIN D3 15:21: mouth [place] (VITAMIN 32 daily. Medical D-3 ORAL) Branch allopurinol Yes [id number] 150mg Take 150 Univers (ZYLOPRIM) 1-04 mg by ity of 100 mg 15:21: mouth [place] tablet 32 daily. Medical Branch CALCIUM 2016- Yes .25mg Take 0.25 Univ ers CARBONATE/V 1-04 mg by ity of ITAMIN D3 15:21: mouth [place] (VITAMIN 32 daily. Medical D-3 ORAL) Branch allopurinol Yes [id number] 150mg Take 150 Univers (ZYLOPRIM) 1-04 mg by ity of 100 mg 15:21: mouth [place] tablet 32 daily. Medical Branch CALCIUM Yes .25mg Take 0.25 Univ ers CARBONATE/V 1-04 mg by ity of ITAMIN D3 15:21: mouth [place] (VITAMIN 32 daily. Medical D-3 ORAL) Branch furosemide Yes [id number] 40mg Take 40 mg Univers (LASIX) 20 1-04 by mouth ity o f mg tablet 15:19: daily. [address] furosemide Yes [id number] 40mg Take 40 mg Univers (LASIX) 20 1-04 by mouth ity o f mg tablet 15:19: daily. [address] furosemide Yes [id number] 40mg Take 40 mg Univers (LASIX) 20 1-04 by mouth ity o f mg tablet 15:19: daily. [address] furosemide Yes [id number] 40mg Take 40 mg Univers (LASIX) 20 1-04 by mouth ity o f mg tablet 15:19: daily. [address] furosemide Yes [id number] 40mg Take 40 mg Univers (LASIX) 20 1-04 by mouth ity o f mg tablet 15:19: daily. [address] furosemide Yes [id number] 40mg Take 40 mg Univers (LASIX) 20 1-04 by mouth ity o f mg tablet 15:19: daily. [address] furosemide Yes [id number] 40mg Take 40 mg Univers (LASIX) 20 1-04 by mouth ity o f mg tablet 15:19: daily. [address] furosemide Yes [id number] 40mg Take 40 mg Univers (LASIX) 20 1-04 by mouth ity o f mg tablet 15:19: daily. [address] furosemide Yes [id number] 40mg Take 40 mg Univers (LASIX) 20 1-04 by mouth ity o f mg tablet 15:19: daily. [address] furosemide 2016- Yes [id number] 40mg Take 40 mg Univers (LASIX) 20 1-04 by mouth ity o f mg tablet 15:19: daily. [address] furosemide Yes [id number] 40mg Take 40 mg Univers (LASIX) 20 1-04 by mouth ity o f mg tablet 15:19: daily. [address] Golimumab Yes [id number] inject U nivers (SIMPONI) 1-04 under the ity o f 50 mg/0.5 15:18: skin. [place] mL 20 Infusion Medical injection every 8 Branch weeks for rheumatoid arthritis. Golimumab Yes [id number] inject U nivers (SIMPONI) 1-04 under the ity o f 50 mg/0.5 15:18: skin. [place] mL 20 Infusion Medical injection every 8 Branch weeks for rheumatoid arthritis. Golimumab Yes [id number] inject U nivers (SIMPONI) 1-04 under the ity o f 50 mg/0.5 15:18: skin. [place] mL 20 Infusion Medical injection every 8 Branch weeks for rheumatoid arthritis. Golimumab Yes [id number] inject U nivers (SIMPONI) 1-04 under the ity o f 50 mg/0.5 15:18: skin. [place] mL 20 Infusion Medical injection every 8 Branch weeks for rheumatoid arthritis. Golimumab Yes [id number] inject U nivers (SIMPONI) 1-04 under the ity o f 50 mg/0.5 15:18: skin. [place] mL 20 Infusion Medical injection every 8 Branch weeks for rheumatoid arthritis. Golimumab Yes [id number] inject U nivers (SIMPONI) 1-04 under the ity o f 50 mg/0.5 15:18: skin. [place] mL 20 Infusion Medical injection every 8 Branch weeks for rheumatoid arthritis. Golimumab Yes [id number] inject U nivers (SIMPONI) 1-04 under the ity o f 50 mg/0.5 15:18: skin. [place] mL 20 Infusion Medical injection every 8 Branch weeks for rheumatoid arthritis. Golimumab Yes [id number] inject U nivers (SIMPONI) 1-04 under the ity o f 50 mg/0.5 15:18: skin. [place] mL 20 Infusion Medical injection every 8 Branch weeks for rheumatoid arthritis. Golimumab Yes [id number] inject U nivers (SIMPONI) 1-04 under the ity o f 50 mg/0.5 15:18: skin. [place] mL 20 Infusion Medical injection every 8 Branch weeks for rheumatoid arthritis. Golimumab Yes [id number] inject U nivers (SIMPONI) 1-04 under the ity o f 50 mg/0.5 15:18: skin. [place] mL 20 Infusion Medical injection every 8 Branch weeks for rheumatoid arthritis. Golimumab Yes [id number] inject U nivers (SIMPONI) 1-04 under the [...] Branch daily with meals. linagliptin 2017 Yes [id number] Take by Univers (TRADJENTA) 1-04 mouth. ity [...] Branch daily with meals. linagliptin 2017-0 Yes [id number] Take by Univers (TRADJENTA) 1-04 mouth. ity [...] Branch daily with meals. linagliptin 2017-0 Yes [id number] Take by Univers (TRADJENTA) 1-04 mouth. ity [...] 2 [place] tablet 03 (two) Medical times [place] daily with meals. linagliptin 2017-0 Yes [id number] Take by Univers (TRADJENTA) 1-04 mouth. ity of 5 mg tablet 14:33: [place] [facility] linagliptin 2017-0 Yes [id number] Take by Univers (TRADJENTA) 1-04 mouth. ity of 5 mg tablet 14:33: [place] [address] Medical Branch apixaban 2017-0 Yes 5mg Take [...] 2 [place] tablet 03 (two) Medical times [place] daily with meals. linagliptin 2017-0 Yes [id number] Take by Univers (TRADJENTA) 1-04 mouth. ity of 5 mg tablet 14:33: [place] [facility] apixaban 2017-0 Yes 5mg Take [...] times Branch daily with meals. linagliptin Yes [id number] Take by Univers (TRADJENTA) 1-04 mouth. ity of 5 mg tablet 14:33: [place] 03 Medical Branch apixaban [id number] Yes 5mg Take 5 mg Univ ers (ELIQUIS) 1-04 by mouth 2 ity of 2.5 mg 14:33: (two) [place] tablet 03 times Medical daily. Branch apixaban 0 Yes 5mg Take 5 [...] times Branch daily with meals. linagliptin Yes [id number] Take by Univers (TRADJENTA) 1-04 mouth. ity of 5 mg tablet 14:33: [place] [facility] apixaban 2017-0 Yes 5mg Take [...] 2 [place] tablet 03 (two) Medical times [place] daily with meals. linagliptin 2017-0 Yes [id number] Take by Univers ([employer]) 1-04 mouth. ity of 5 mg tablet 14:33: [place] [facility] Branch apixaban 0 Yes 5mg Take 5 [...] Branch daily with meals. linagliptin 2017-0 Yes [id number] Take by Univers ([employer]) 1-04 mouth. ity of 5 mg tablet 14:33: [place] [facility] apixaban 2017-0 Yes 5mg Take 5 mg [...] times Branch daily with meals. linagliptin Yes [id number] Take by Univers (TRADJENTA) 1-04 mouth. ity of 5 mg tablet 14:33: [place] 03 Medical [place] pramipexole Yes [id number] 2mg Take 2 Univers (MIRAPEX) 1 1-04 tablets by it y [place] mg tablet 00:[place]: [place] bed[place] [facility] pramipexole Yes [id number] 2mg Take 2 Univers (MIRAPEX) 1 1-04 tablets by [place] y of mg tablet 00:[place]: [place] bed[place]. [place] pramipexole Yes [id number] 2mg Take 2 Univers (MIRAPEX) 1 1-04 tablets by it y of mg tablet 00:00: [place] bed[place]. [facility] pramipexole Yes [id number] 2mg Take 2 Univers (MIRAPEX) 1 1-04 tablets by it y of mg tablet 00:00: [place] bed[place]. [facility] pramipexole Yes [id number] 2mg Take 2 Univers (MIRAPEX) 1 1-04 tablets by [place] y of mg tablet 00:[place]: [place] bed[place] [facility] pramipexole Yes [id number] 2mg Take 2 Univers (MIRAPEX) 1 1-04 tablets by it y of mg tablet 00:00: [place] bed[place]. [facility] pramipexole Yes [id number] 2mg Take 2 Univers (MIRAPEX) 1 1-04 tablets by [place] y of mg tablet 00:00: [place] bed[place]. [facility] pramipexole Yes [id number] 2mg Take 2 Univers (MIRAPEX) 1 1-04 tablets by it y of mg tablet 00:00: [place] 00 bed[place]. [facility] pramipexole Yes [id number] 2mg Take 2 Univers (MIRAPEX) 1 1-04 tablets by [place] y of mg tablet 00:00: [place] bed[place]. [facility] pramipexole Yes [id number] 2mg Take 2 Univers (MIRAPEX) 1 1-04 tablets by [place] y of mg tablet [place]: [place] bed[place] [facility] Branch pramipexole Yes [id number] 2mg Take 2 Univers (MIRAPEX) 1 1-04 [...] Medical times Branch daily. glipiZIDE 2015-05 Yes [id number] 10mg Take 1 Un kevan XL 1-16 tablet by ity of (GLUCOTROL 00:00: [place] XL) 10 mg 00 (two) Medical 24 hr times Branch tablet daily. glipiZIDE 2015-05 Yes [id number] 10mg Take 1 Un [place] XL 1-16 tablet by ity of (GLUCOTROL 00:00: mouth [place] XL) 10 mg 00 (two) Medical 24 hr times Branch tablet daily. glipiZIDE 2015-05 Yes [id number] 10mg Take 1 [facility] [place] XL 1-16 tablet by ity of (GLUCOTROL 00:00: mouth [place] XL) 10 mg 00 (two) Medical 24 hr times Branch tablet daily. glipiZIDE 2015-05 Yes [id number] 10mg Take 1 [facility] [place] XL 1-16 tablet by ity of (GLUCOTROL 00:00: mouth 2 [place] XL[place] 10 mg 00 (two) Medical 24 hr times Branch tablet daily. glipiZIDE 2015-05 Yes [id number] 10mg Take 1 [facility] [place] XL 1-16 tablet by ity of (GLUCOTROL 00:00: mouth [place] XL[place] 10 mg 00 (two) Medical 24 hr times Branch tablet daily. glipiZIDE 2015-05 Yes [id number] 10mg Take 1 [place] XL 1-16 tablet by ity of (GLUCOTROL 00:00: mouth 2 [place] XL) 10 mg 00 (two) Medical 24 hr times Branch tablet daily. glipiZIDE 2015-05 Yes [id number] 10mg Take 1 [facility] [place] XL 1-16 tablet by ity of (GLUCOTROL 00:00: mouth [place] XL) 10 mg 00 (two) Medical 24 hr times Branch tablet daily. glipiZIDE 2015-05 Yes [id number] 10mg Take 1 [place] XL 1-16 tablet by ity of (GLUCOTROL 00:00: mouth 2 [place] XL) 10 mg 00 (two) Medical 24 hr times Branch tablet daily. glipiZIDE 2015-05 Yes [id number] 10mg Take 1 [facility] [place] XL 1-16 tablet by ity of (GLUCOTROL 00:00: mouth 2 [place] XL[place] 10 mg 00 (two) Medical 24 hr times Branch tablet daily. glipiZIDE 2015-05 Yes [id number] 10mg Take 1 [place] XL 1-16 tablet by ity of (GLUCOTROL 00:00: mouth 2 [place] XL) 10 mg 00 (two) Medical 24 hr times Branch tablet daily. glipiZIDE 2015-05 Yes [id number] 10mg Take 1 [place] XL 1-16 tablet by ity of (GLUCOTROL 00:00: mouth 2 [place] XL) 10 mg 00 (two) Medical 24 hr times Branch tablet daily. atorvastati 2015-05 Yes [id number] 10mg Take 1 Univers n (LIPITOR) 1-02 tablet by ity of 10 mg 00:00: mouth at [place] tablet 00 bedtime. Medical Branch atorvastati 2015-05 Yes [id number] 10mg Take 1 Univers n (LIPITOR) 1-02 tablet by ity of 10 mg 00:00: mouth at [place] tablet 00 bedtime. Medical Branch atorvastati 2015-05 Yes [id number] 10mg Take 1 Univers n (LIPITOR) 1-02 tablet by ity of 10 mg 00:00: mouth at [place] tablet 00 bedtime. Medical Branch atorvastati 2015-05 Yes [id number] 10mg Take 1 Univers n (LIPITOR) 1-02 tablet by ity of 10 mg 00:00: mouth at [place] tablet 00 bedtime. Medical Branch atorvastati 2015-05 Yes [id number] 10mg Take 1 Univers n (LIPITOR) 1-02 tablet by ity of 10 mg 00:00: mouth at [place] tablet 00 bedtime. [facility]05 Yes [id number] 10mg Take 1 Univers n (LIPITOR) 1-02 tablet by ity of 10 mg 00:00: mouth at [place] tablet 00 bedtime. [facility] 2015-05 Yes [id number] 10mg Take 1 Univers n (LIPITOR) 1-02 tablet by ity of 10 mg 00:00: mouth at [place] tablet 00 bedtime. [facility] 2015-05 Yes [id number] 10mg Take 1 Univers n (LIPITOR) 1-02 tablet by ity of 10 mg 00:00: mouth at [place] tablet 00 bedtime. [facility] 2015-05 Yes [id number] 10mg Take 1 Univers n (LIPITOR) 1-02 tablet by ity of 10 mg 00:00: mouth at [place] tablet 00 bedtime. [facility] 2015-05 Yes [id number] 10mg Take 1 Univers n (LIPITOR) 1-02 tablet by ity of 10 mg 00:00: mouth at [place] tablet 00 bedtime. [facility] 2015-05 Yes [id number] 10mg Take 1 Univers n (LIPITOR) 1-02 tablet by ity of 10 mg 00:00: mouth at [place] tablet 00 bedtime. [facility] Branch Immunizations Ordered Immunization Filled Date Status Comments Sour ce Name Immunization Name PFIZER COVID-19 MRNA 2021-06-10 Completed Meth [...] odist VACCINATION 00:00:00 Hospital Pneumococcal 2020-04-29 Completed [facility] Polysaccharide 00:00:00 Hospital Zoster 2020-04-29 Completed [facility] 00:00:00 Hospital Pneumococcal 2020-04-29 Completed [facility] Polysaccharide 00:00:00 Hospital Zoster 2020-04-29 Completed [facility] 00:00:00 Hospital Pneumococcal 2020-04-29 Completed [facility] Polysaccharide 00:00:00 Hospital Zoster 2020-04-29 Completed [facility] 00:00:00 Hospital Pneumococcal 2020-04-29 Completed [facility] Polysaccharide 00:00:00 Hospital Zoster 2020-04-29 Completed [facility] 00:00:00 Hospital Pneumococcal 2020-04-29 Completed [facility] Polysaccharide 00:00:00 Hospital Zoster 2020-04-29 Completed [facility] 00:00:00 Hospital Pneumococcal 2020-04-29 Completed [facility] Polysaccharide 00:00:00 Hospital Zoster 2020-04-29 Completed [facility] 00:00:00 Hospital Pneumococcal 2020-04-29 Completed [facility] Polysaccharide 00:00:00 Hospital Zoster 2020-04-29 Completed [facility] 00:00:00 Hospital Pneumococcal 2020-04-29 Completed [facility] Polysaccharide 00:00:00 Hospital Zoster 2020-04-29 Completed [facility] 00:00:00 Hospital Pneumococcal 2020-04-29 Completed [facility] Polysaccharide 00:00:00 Hospital Zoster 2020-04-29 Completed [facility] 00:00:00 Hospital Pneumococcal 2020-04-29 Completed [facility] Polysaccharide 00:00:00 Hospital Zoster 2020-04-29 Completed [facility] 00:00:00 Hospital Pneumococcal 2019-05-13 Completed [facility] Conjugate 13-Valent 00:00:00 Hospi true Pneumococcal 2019-05-13 Completed [facility] Conjugate 13-Valent 00:00:00 Hospi true Pneumococcal 2019-05-13 Completed [facility] Conjugate 13-Valent 00:00:00 Hospi true Pneumococcal 2019-05-13 Completed [facility] Conjugate 13-Valent 00:00:00 Hospi true Pneumococcal 2019-05-13 Completed [facility] Conjugate 13-Valent 00:00:00 Hospi true Pneumococcal 2019-05-13 Completed [facility] Conjugate 13-Valent 00:00:00 Hospi true Pneumococcal 2019-05-13 Completed [facility] Conjugate 13-Valent 00:00:00 Hospi true Pneumococcal 2019-05-13 Completed [facility] Conjugate 13-Valent 00:00:00 Hospi true Pneumococcal 2019-05-13 Completed [facility] Conjugate 13-Valent 00:00:00 Hospi true Pneumococcal 2019-05-13 Completed [facility] Conjugate 13-Valent 00:00:00 Hospi true FLUCELVAX QUAD [...] Metho dist 00:00:00 Hospital Influenza, 2016-02-03 Completed [facility] Unspecified 00:00:00 Hospital Pneumococcal 2016-02-03 Completed [facility] Conjugate 13-Valent 00:00:00 Hospi true Tdap 2016-02-03 Completed [facility] 00:00:00 Hospital Influenza, 2016-02-03 Completed [facility] Unspecified 00:00:00 Hospital Pneumococcal 2016-02-03 Completed [facility] Conjugate 13-Valent 00:00:00 Hospi true Tdap 2016-02-03 Completed [facility] 00:00:00 Hospital Influenza, 2016-02-03 Completed [facility] Unspecified 00:00:00 Hospital Pneumococcal 2016-02-03 Completed [facility] Conjugate 13-Valent 00:00:00 Hospi true Tdap 2016-02-03 Completed [facility] 00:00:00 Hospital Influenza, 2016-02-03 Completed [facility] Unspecified 00:00:00 Hospital Pneumococcal 2016-02-03 Completed [facility] Conjugate 13-Valent 00:00:00 Hospi true Tdap 2016-02-03 Completed [facility] 00:00:00 Hospital Influenza, 2016-02-03 Completed [facility] Unspecified 00:00:00 Hospital Pneumococcal 2016-02-03 Completed [facility] Conjugate 13-Valent 00:00:00 Hospi true Tdap 2016-02-03 Completed [facility] 00:00:00 Hospital Influenza, 2016-02-03 Completed [facility] Unspecified 00:00:00 Hospital Pneumococcal 2016-02-03 Completed [facility] Conjugate 13-Valent 00:00:00 Hospi true Tdap 2016-02-03 Completed [facility] 00:00:00 Hospital Influenza, 2016-02-03 Completed [facility] Unspecified 00:00:00 Hospital Pneumococcal 2016-02-03 Completed [facility] Conjugate 13-Valent 00:00:00 Hospi true Tdap 2016-02-03 Completed [facility] 00:00:00 Hospital Influenza, 2016-02-03 Completed [facility] Unspecified 00:00:00 Hospital Pneumococcal 2016-02-03 Completed [facility] Conjugate 13-Valent 00:00:00 Hospi true Tdap 2016-02-03 Completed [facility] 00:00:00 Hospital Influenza, 2016-02-03 Completed [facility] Unspecified 00:00:00 Hospital Pneumococcal 2016-02-03 Completed [facility] Conjugate 13-Valent 00:00:00 Hospi true Tdap 2016-02-03 Completed [facility] 00:00:00 Hospital Influenza, 2016-02-03 Completed [facility] Unspecified 00:00:00 Hospital Pneumococcal 2016-02-03 Completed [facility] Conjugate 13-Valent 00:00:00 Hospi true Tdap 2016-02-03 Completed [facility] 00:00:00 Hospital Influenza Virus 2016-02-03 Completed Universit y of Vaccine 00:00:00 [facility] Pneumococcal 13 2016-02-03 Completed Universit y of Conjugate, PCV13 00:00:00 [place] [facility] (Prevnar 13) Branch AP 2016-02-03 Completed University of 00:00:00 [facility] Influenza Virus 2016-02-03 Completed Universit y of Vaccine 00:00:00 [facility] Pneumococcal 13 2016-02-03 Completed Universit y of Conjugate, PCV13 00:00:00 [place] [facility] (Prevnar 13) Branch TDAP 2016-02-03 Completed University of 00:00:00 [facility] Influenza Virus 2016-02-03 Completed Universit y of Vaccine 00:00:00 [facility] Pneumococcal 13 2016-02-03 Completed Universit y of Conjugate, PCV13 00:00:00 [place] [facility] (Prevnar 13) Branch TDAP 2016-02-03 Completed University of 00:00:00 [facility] Influenza Virus 2016-02-03 Completed Universit y of Vaccine 00:00:00 [facility] Pneumococcal 13 2016-02-03 Completed Universit y of Conjugate, PCV13 00:00:00 [place] [facility] (Prevnar 13) Branch AP 2016-02-03 Completed University of 00:00:00 [facility] Influenza Virus 2016-02-03 Completed Universit y of Vaccine 00:00:00 [facility] Pneumococcal 13 2016-02-03 Completed Universit y of Conjugate, PCV13 00:00:00 [facility] dical (Prevnar 13) Branch [facility] 2016-02-03 Completed University of 00:00:00 [facility] Influenza Virus 2016-02-03 Completed Universit y of Vaccine 00:00:00 [facility] Pneumococcal 13 2016-02-03 Completed Universit y of Conjugate, PCV13 00:00:00 [facility] dical (Prevnar 13) Branch [facility] 2016-02-03 Completed University of 00:00:00 [facility] Influenza Virus 2016-02-03 Completed Universit y of Vaccine 00:00:00 [facility] Pneumococcal 13 2016-02-03 Completed Universit y of Conjugate, PCV13 00:00:00 [facility] dical (Prevnar 13) Branch [facility] 2016-02-03 Completed University of 00:00:00 [facility] Influenza Virus 2016-02-03 Completed Universit y of Vaccine 00:00:00 [facility] Pneumococcal 13 2016-02-03 Completed Universit y of Conjugate, PCV13 00:00:00 [facility] dical (Prevnar 13) Branch [facility] 2016-02-03 Completed University of 00:00:00 [facility] Influenza Virus 2016-02-03 Completed Universit y of Vaccine 00:00:00 [facility] Pneumococcal 13 2016-02-03 Completed Universit y of Conjugate, PCV13 00:00:00 [facility] dical (Prevnar 13) Branch [facility] 2016-02-03 Completed University of 00:00:00 [facility] Influenza Virus 2016-02-03 Completed Universit y of Vaccine 00:00:00 [facility] Pneumococcal 13 2016-02-03 Completed Universit y of Conjugate, PCV13 00:00:00 [facility] dical (Prevnar 13) Branch [facility] 2016-02-03 Completed University of 00:00:00 [facility] Influenza Virus 2016-02-03 Completed Universit y of Vaccine 00:00:00 [facility] Pneumococcal 13 2016-02-03 Completed Universit y of Conjugate, PCV13 00:00:00 [facility] dical (Prevnar 13) Branch [facility] 2016-02-03 Completed University of 00:00:00 [facility] Influenza, 2015-01-05 Completed [facility] Unspecified 00:00:00 Hospital Pneumococcal 2015-01-05 Completed [facility] Conjugate 13-Valent 00:00:00 Hospi true Td 2015-01-05 Completed [facility] 00:00:00 Hospital Influenza, 2015-01-05 Completed [facility] Unspecified 00:00:00 Hospital Pneumococcal 2015-01-05 Completed [facility] Conjugate 13-Valent 00:00:00 Hospi true Td 2015-01-05 Completed [facility] 00:00:00 Hospital Influenza, 2015-01-05 Completed [facility] Unspecified 00:00:00 Hospital Pneumococcal 2015-01-05 Completed [facility] Conjugate 13-Valent 00:00:00 Hospi true Td 2015-01-05 Completed [facility] 00:00:00 Hospital Influenza, 2015-01-05 Completed [facility] Unspecified 00:00:00 Hospital Pneumococcal 2015-01-05 Completed [facility] Conjugate 13-Valent 00:00:00 [facility] Td 2015-01-05 Completed [facility] 00:00:00 Hospital Influenza, 2015-01-05 Completed [facility] Unspecified 00:00:00 Hospital Pneumococcal 2015-01-05 Completed [facility] Conjugate 13-Valent 00:00:00 [facility] Td 2015-01-05 Completed [facility] 00:00:00 Hospital Influenza, 2015-01-05 Completed [facility] Unspecified 00:00:00 Hospital Pneumococcal 2015-01-05 Completed [facility] Conjugate 13-Valent 00:00:00 [facility] Td 2015-01-05 Completed [facility] 00:00:00 Hospital Influenza, 2015-01-05 Completed [facility] Unspecified 00:00:00 Hospital Pneumococcal 2015-01-05 Completed [facility] Conjugate 13-Valent 00:00:00 Hospi true Td 2015-01-05 Completed [facility] 00:00:00 Hospital Influenza, 2015-01-05 Completed [facility] Unspecified 00:00:00 Hospital Pneumococcal 2015-01-05 Completed [facility] Conjugate 13-Valent 00:00:00 Hospi true Td 2015-01-05 Completed [facility] 00:00:00 Hospital Influenza, 2015-01-05 Completed [facility] Unspecified 00:00:00 Hospital Pneumococcal 2015-01-05 Completed [facility] Conjugate 13-Valent 00:00:00 Hospi true Td 2015-01-05 Completed [facility] 00:00:00 Hospital Influenza, 2015-01-05 Completed [facility] Unspecified 00:00:00 [facility] Pneumococcal 2015-01-05 Completed [facility] Conjugate 13-Valent 00:00:00 Hospi true Td 2015-01-05 Completed [facility] 00:00:00 [facility] Influenza Virus 2015-01-05 Completed Universit y of Vaccine 00:00:00 [facility] Pneumococcal 13 2015-01-05 Completed Universit y of Conjugate, PCV13 00:00:00 [facility] dical (Prevnar 13) Branch Tetanus/Diptheria 2015-01-05 Completed Univers ity of 00:00:00 [facility] Influenza Virus 2015-01-05 Completed Universit y of Vaccine 00:00:00 [facility] Pneumococcal 13 2015-01-05 Completed Universit y of Conjugate, PCV13 00:00:00 [facility] dical (Prevnar 13) Branch Tetanus/Diptheria 2015-01-05 Completed Univers ity of 00:00:00 [facility] Influenza Virus 2015-01-05 Completed Universit y of Vaccine 00:00:00 [facility] Pneumococcal 13 2015-01-05 Completed Universit y of Conjugate, PCV13 00:00:00 [facility] dical (Prevnar 13) Branch Tetanus/Diptheria 2015-01-05 Completed Univers ity of 00:00:00 [facility] Influenza Virus 2015-01-05 Completed Universit y of Vaccine 00:00:00 [facility] Pneumococcal 13 2015-01-05 Completed Universit y of Conjugate, PCV13 00:00:00 [facility] dical (Prevnar 13) Branch Tetanus/Diptheria 2015-01-05 Completed Univers ity of 00:00:00 [facility] Influenza Virus 2015-01-05 Completed Universit y of Vaccine 00:00:00 [facility] Pneumococcal 13 2015-01-05 Completed Universit y of Conjugate, PCV13 00:00:00 [facility] dical (Prevnar 13) Branch Tetanus/Diptheria 2015-01-05 Completed Univers ity of 00:00:00 [facility] Influenza Virus 2015-01-05 Completed Universit y of Vaccine 00:00:00 [facility] Pneumococcal 13 2015-01-05 Completed Universit y of Conjugate, PCV13 00:00:00 [facility] dical (Prevnar 13) Branch Tetanus/Diptheria 2015-01-05 Completed Univers ity of 00:00:00 [facility] Influenza Virus 2015-01-05 Completed Universit y of Vaccine 00:00:00 [facility] Pneumococcal 13 2015-01-05 Completed Universit y of Conjugate, PCV13 00:00:00 [facility] dical (Prevnar 13) Branch Tetanus/Diptheria 2015-01-05 Completed Univers ity of 00:00:00 [facility] Influenza Virus 2015-01-05 Completed Universit y of Vaccine 00:00:00 [facility] Pneumococcal 13 2015-01-05 Completed Universit y of Conjugate, PCV13 00:00:00 [facility] dical (Prevnar 13) Branch Tetanus/Diptheria 2015-01-05 Completed Univers ity of 00:00:00 [facility] Influenza Virus 2015-01-05 Completed Universit y of Vaccine 00:00:00 [facility] Pneumococcal 13 2015-01-05 Completed Universit y of Conjugate, PCV13 00:00:00 [facility] dical (Prevnar 13) Branch Tetanus/Diptheria 2015-01-05 Completed Univers ity of 00:00:00 [facility] Influenza Virus 2015-01-05 Completed Universit y of Vaccine 00:00:00 [facility] Pneumococcal 13 2015-01-05 Completed Universit y of Conjugate, PCV13 00:00:00 [facility] dical (Prevnar 13) Branch Tetanus/Diptheria 2015-01-05 Completed Univers ity of 00:00:00 [facility] Influenza Virus 2015-01-05 Completed Universit y of Vaccine 00:00:00 [facility] Pneumococcal 13 2015-01-05 Completed Universit y of Conjugate, PCV13 00:00:00 [facility] dical (Prevnar 13) Branch Tetanus/Diptheria 2015-01-05 Completed Univers ity of 00:00:00 [facility] Pneumococcal 2013-05-21 Completed [facility] Conjugate 00:00:00 [facility] Tdap 2013-05-21 Completed [facility] 00:00:00 Hospital Pneumococcal 2013-05-21 Completed [facility] Conjugate 00:00:00 Hospital Tdap 2013-05-21 Completed [facility] 00:00:00 Hospital Pneumococcal 2013-05-21 Completed [facility] Conjugate 00:00:00 [facility] Tdap 2013-05-21 Completed [facility] 00:00:00 Hospital Pneumococcal 2013-05-21 Completed [facility] Conjugate 00:00:00 Hospital Tdap 2013-05-21 Completed [facility] 00:00:00 Hospital Pneumococcal 2013-05-21 Completed [facility] Conjugate 00:00:00 Hospital Tdap 2013-05-21 Completed [facility] 00:00:00 Hospital Pneumococcal 2013-05-21 Completed [facility] Conjugate 00:00:00 Hospital Tdap 2013-05-21 Completed [facility] 00:00:00 Hospital Pneumococcal 2013-05-21 Completed [facility] Conjugate 00:00:00 Hospital Tdap 2013-05-21 Completed [facility] 00:00:00 Hospital Pneumococcal 2013-05-21 Completed [facility] Conjugate 00:00:00 Hospital Tdap 2013-05-21 Completed [facility] 00:00:00 Hospital Pneumococcal 2013-05-21 Completed [facility] Conjugate 00:00:00 Hospital Tdap 2013-05-21 Completed [facility] 00:00:00 Hospital Pneumococcal 2013-05-21 Completed [facility] Conjugate 00:00:00 Hospital Tdap 2013-05-21 Completed [facility] 00:00:00 Hospital H1N1 All Forms 2009-04-20 Completed [facility] 00:00:00 [facility] H1N1 All Forms 2009-04-20 Completed [facility] 00:00:00 [facility] H1N1 All Forms 2009-04-20 Completed [facility] 00:00:00 [facility] H1N1 All Forms 2009-04-20 Completed [facility] 00:00:00 Hospital H1N1 All Forms 2009-04-20 Completed [facility] 00:00:00 Hospital H1N1 All Forms 2009-04-20 Completed [facility] 00:00:00 Hospital H1N1 All Forms 2009-04-20 Completed [facility] 00:00:00 Hospital H1N1 All Forms 2009-04-20 Completed [facility] 00:00:00 Hospital H1N1 All Forms 2009-04-20 Completed [facility] 00:00:00 Hospital H1N1 All Forms 2009-04-20 Completed [facility] 00:00:00 Hospital Influenza Trivalent Unknown Com[facility] Pneumococcal Unknown Completed [facility] Tdap Unknown Completed [facility] FLUZONE HIGH-DOSE PF Unknown Completed [facility] FLUCELVAX QUAD PF Unknown Com[facility] COVID-19 MRNA Unknown Completed [facility] VACCINATION [facility] PFIZER COVID-19 MRNA Unknown Completed [facility] PFIZER COVID-19 MRNA Unknown Completed [facility] VACCINATION [facility] Influenza, Unknown Completed [facility] Influenza, Unknown Completed [facility] H1N1 All Forms Unknown Completed [facility] Pneumococcal Unknown Completed [facility] Polysaccharide [facility] Pneumococcal Unknown Completed [facility] true Pneumococcal Unknown Completed [facility] true Pneumococcal Unknown Completed [facility] true Zoster Unknown Completed [facility] Tdap Unknown Completed [facility] Td Unknown Completed [facility] Vital Signs Vital Name Observation Time Observation Value Comments Source HEIGHT 2022-01-14 10:00:00 162.6 cm WEIGHT 2022-01-14 10:00:00 68.04 kg HEIGHT 2022-01-14 10:00:00 162.6 cm WEIGHT 2022-01-14 10:00:00 68.04 kg Systolic blood 2022-01-18 12:00:00 117 mm[Hg] [facility] Diastolic blood 2022-01-18 12:00:00 51 mm[Hg] [facility] Heart rate 2022-01-18 12:00:00 80 /min [facility] Body temperature 2022-01-18 12:00:00 36.78 Mena [facility] Respiratory rate 2022-01-18 12:00:00 18 /min [facility] Oxygen saturation in 2022-01-18 12:00:00 100 /min [facility] Arterial blood by Medical Ce nter Pulse oximetry Body height 2022-01-14 10:00:00 162.6 cm [facility] Body weight 2022-01-14 10:00:00 68.04 kg [facility] BMI 2022-01-14 10:00:00 25.75 kg/m2 [facility] Systolic blood 2021-09-16 23:24:00 145 mm[Hg] [facility] pressure Diastolic blood 2021-09-16 23:24:00 78 mm[Hg] [facility] pressure Heart rate 2021-09-16 23:00:00 80 /min [facility] Respiratory rate 2021-09-16 23:00:00 19 /min [facility] Body temperature 2021-09-16 19:25:00 36.28 Mena [facility] Oxygen saturation in 2021-09-16 15:57:32 98 /min [facility] Arterial blood by Pulse oximetry Body height 2021-09-07 12:58:00 162.6 cm [facility] Body weight 2021-09-07 12:58:00 67.3 kg [facility] BMI 2021-09-07 12:58:00 25.47 kg/m2 [facility] Procedures Procedure Date / Time Performing Source Performed Clinician [id number] 2022-10-11 [facility] 00:00:00 [facility] [place] EXTERNAL PROVIDER RECORDS 2022-07-05 [facility] 06:01:00 Unassigned, No Medical Branch Name EXTERNAL PROVIDER RECORDS 2022-04-01 [facility] 06:01:00 Unassigned, No Medical Branch Name POCT-GLUCOSE METER 2022-01-18 Annalee Bey [facility] 12:10:00 Center HEMODIALYSIS INPATIENT 2022-01-18 Joni Aquino [facility] 07:52:23 [facility] BASIC METABOLIC PANEL 2022-01-18 Reji, [facility] 06:09:00 Center POCT-GLUCOSE METER 2022-01-17 [facility] 19:46:00 Center POCT-GLUCOSE METER 2022-01-17 [facility] 17:06:00 Center POCT-GLUCOSE METER 2022-01-17 [facility] 12:13:00 Center POCT-GLUCOSE METER 2022-01-17 [facility], [facility] 08:29:00 Center BASIC METABOLIC PANEL 2022-01-17 [facility], [facility] 03:23:00 Center POCT-GLUCOSE METER 2022-01-16 Reji, [facility] 20:16:00 Center POCT-GLUCOSE METER 2022-01-16 [facility], [facility] 15:46:00 Center POCT-GLUCOSE METER 2022-01-16 [facility] 11:46:00 Center POCT-GLUCOSE METER 2022-01-16 Reji, [facility] 07:47:00 Center POCT-GLUCOSE METER 2022-01-15 Reji, [facility] 20:13:00 Center POCT-GLUCOSE METER 2022-01-15 [facility] 17:54:00 Center POCT-GLUCOSE METER 2022-01-15 [facility] 12:31:00 [place] HEMODIALYSIS INPATIENT 2022-01-15 Lexie [facility] 10:06:42 Aguila Cecil [place] POCT-GLUCOSE METER 2022-01-15 [facility] 07:32:00 [place] BASIC METABOLIC PANEL 2022-01-15 [facility], [facility] 03:58:00 [place] POCT-GLUCOSE METER 2022-01-14 [facility] 20:42:00 [place] POCT-GLUCOSE METER 2022-01-14 [facility] 15:38:00 Center SARS-COV2/RT-PCR ([facility] & REF 2022-01-14 [facility] LABS) 14:57:00 [place] XR CHEST 1 VIEW PORTABLE / 2022-01-14 [facility] BEDSIDE 14:38:00 [place] POCT-GLUCOSE METER 2022-01-14 [facility] 12:02:00 [place] IR CENTRAL VENOUS CATHETER 2022-01-14 [facility] PLACEMENT (JUGULAR OR FEMORAL) 11:14:00 [facility] POCT-GLUCOSE METER 2022-01-14 [facility] 08:24:00 [place] CBC (HEMOGRAM ONLY) 2022-01-14 [facility] 04:11:00 [place] BASIC METABOLIC PANEL 2022-01-14 [facility] 04:11:00 [place] POCT-GLUCOSE METER 2022-01-13 [facility] 19:39:00 [place] POCT-GLUCOSE METER 2022-01-13 [facility] 16:37:00 [place] POCT-GLUCOSE METER 2022-01-13 [facility] 13:51:00 [place] BLOOD GAS, ARTERIAL 2022-01-13 [facility] 08:41:00 [place] POCT-GLUCOSE METER 2022-01-13 [facility] 08:25:[address] BRAIN WITHOUT IV CONTRAST 2022-01-13 [facility] 07:50:00 [place] COMPREHENSIVE METABOLIC PANEL 2022-01-13 [facility] 07:29:00 [place] TROPONIN I 2022-01-13 [facility], [facility] ical 07:29:00 [place] TSH/FREE T4 IF INDICATED 2022-01-13 [facility] 07:29:00 [place] CBC W/PLT COUNT & AUTO 2022-01-13 [facility], [facility] DIFFERENTIAL 07:29:00 [place] CBC W/PLT COUNT & AUTO 2022-01-13 [facility], [facility] DIFFERENTIAL 07:29:00 [place] POCT-GLUCOSE METER 2022-01-13 [facility] 07:04:00 [place] POCT-GLUCOSE METER 2022-01-13 [facility] 06:21:00 [place] POCT-GLUCOSE METER 2022-01-12 [facility] 20:53:00 [place] POCT-GLUCOSE METER 2022-01-12 [facility] 19:20:00 [place] POCT-GLUCOSE METER 2022-01-12 [facility] 18:50:00 [place] POCT-GLUCOSE METER 2022-01-12 [facility] 17:58:00 [place] IR TUNNELED CATHETER INSERTION 2022-01-12 Rufina Owen [facility] 16:30:00 [facility] POCT-GLUCOSE METER 2022-01-12 [facility] 12:08:00 [place] POCT-GLUCOSE METER 2022-01-12 [facility] 08:49:00 [place] CBC W/PLT COUNT & AUTO 2022-01-12 [facility] DIFFERENTIAL 05:39:00 [place] BASIC METABOLIC PANEL 2022-01-12 [facility] 05:39:00 [place] MAGNESIUM 2022-01-12 [facility] 05:39:00 Center PHOSPHORUS 2022-01-12 [facility], [place] 05:39:00 Center PROTHROMBIN TIME/INR 2022-01-12 [facility], Annalee Montoya [facility] 05:39:00 Center APTT 2022-01-12 [facility], Annalee Montoya [facility] 05:39:00 [place] CBC W/PLT COUNT & AUTO 2022-01-12 [facility], [facility]e [facility] DI[facility] 05:39:00 [place] (MANUAL DIFFERENTIAL) 2022-01-12 [facility], Annalee Mont[facility] 05:39:00 [place] POCT-GLUCOSE METER 2022-01-11 [facility], Annalee Montoya [facility] 19:49:00 [place] POCT-GLUCOSE METER 2022-01-11 [facility], Ann[place]e Montoya [facility] 17:57:00 [place] POCT-GLUCOSE METER 2022-01-11 [facility], [place] Mont[facility] 12:37:00 [place] HEMODIALYSIS INPATIENT 2022-01-11 [facility] Rufina [facility] 12:29:37 Aguila [facility] POCT-GLUCOSE METER 2022-01-11 [facility], Annalee Montoya [facility] 07:49:00 [place] POCT-GLUCOSE METER 2022-01-10 [facility], Annalee Mont[facility] 21:16:00 [place] POCT-GLUCOSE METER 2022-01-10 [facility], [place] Mont[facility] 15:24:00 [place] IR TUNNEL CATHETER EXCHANGE 2022-01-10 Aranza Schulz [facility] 11:23:00 [facility] POCT-GLUCOSE METER 2022-01-10 [facility], [place] Montoya [facility] 11:21:00 [place] CBC W/PLT COUNT & AUTO 2022-01-10 [facility], Annalee [facility] DIFFER[facility] 04:13:00 [place] BASIC METABOLIC PANEL 2022-01-10 [facility], Annalee Montoya [facility] 04:13:00 [place] MAGNESIUM 2022-01-10 [facility], Annalee Montoya [facility] 04:13:00 [place] PHOSPHORUS 2022-01-10 Shieh, Annalee Montoya [facility] 04:13:00 Center APTT [...] Shieh, Annalee Montoya [facility] 11:22:00 Center APTT 2022-01-09 Shieh, Annalee [facility] 09:44:00 Center POCT-GLUCOSE METER 2022-01-09 Shieh, Annalee [facility] 07:19:00 Center POCT-GLUCOSE METER 2022-01-09 Shieh, Annalee [facility] 05:05:00 Center CBC W/PLT COUNT & AUTO 2022-01-09 Shieh, [place]e [facility] DIFFERENTIAL 04:57:00 [place] BASIC METABOLIC PANEL 2022-01-09 Shieh, Annalee Jan [facility] 04:57:00 [place] MAGNESIUM 2022-01-09 Shieh, Annalee Montoya [facility] 04:57:00 [place] PHOSPHORUS 2022-01-09 Shieh, Annalee [facility] 04:57:00 Center CBC W/PLT COUNT & AUTO 2022-01-09 Shieh, [place]e [facility] DIFFERENTIAL 04:57:00 Center APTT 2022-01-09 Shieh, Annalee Jan [facility] 00:34:00 Center POCT-GLUCOSE METER 2022-01-08 Shieh, Annalee Montoya [facility] 16:49:00 Center APTT 2022-01-08 Shieh, Annalee Montoya [facility] 16:13:00 [place] HEMODIALYSIS INPATIENT 2022-01-08 Lexie, [facility] 15:47:52 [facility] HEPATITIS B SURFACE ANTIGEN 2022-01-08 [facility], [facility] 15:40:00 [facility] HEPATITIS B SURFACE ANTIBODY 2022-01-08 [facility], [facility] 15:40:00 [facility] POCT-GLUCOSE METER 2022-01-08 [facility] 12:18:00 [place] POCT-GLUCOSE METER 2022-01-08 [facility] 07:59:00 [place] CBC W/PLT COUNT & AUTO 2022-01-08 [facility] DIFFERENTIAL 05:27:00 [place] BASIC METABOLIC PANEL 2022-01-08 [facility] 05:27:00 [place] MAGNESIUM 2022-01-08 [facility] 05:27:00 [place] PHOSPHORUS 2022-01-08 [facility] 05:27:00 [place] HEMOGLOBIN A1C 2022-01-08 [facility] 05:27:00 [place] CBC W/PLT COUNT & AUTO 2022-01-08 [facility] DIFFERENTIAL 05:27:00 [place] APTT 2022-01-08 Joanna Owens [facility] 05:26:00 [place] POCT-GLUCOSE METER 2022-01-07 [facility] 21:01:00 [place] APTT 2022-01-07 Roman Joanna [facility] 21:00:00 [place] CARDIAC CATH REPORT - SCAN 2022-01-07 Provider, [facility] S t [facility] 00:00:00 Default Scanning [place] EKG-SCANNED 2022-01-07 Provider, [facility] 00:00:00 Default Scanning [place] HEMODIALYSIS 2021-09-16 [facility] 20:36:27 Alexandru Das POC GLUCOSE 2021-09-16 Corrine [facility] 15:59:00 POC GLUCOSE 2021-09-16 Al-Lahiq, Maha [facility] 11:10:00 POC GLUCOSE 2021-09-16 Al-Lahiq, [facility] 01:24:00 POC GLUCOSE 2021-09-15 Al-Lahiq, Maha [facility] 20:54:00 POC GLUCOSE 2021-09-15 Al-Lahiq, Mah[facility] 16:27:00 POC GLUCOSE 2021-09-15 Al-Lahiq, [facility] 12:04:00 POC GLUCOSE 2021-09-15 Al-Lahiq, [facility] 11:16:00 POC GLUCOSE 2021-09-15 Al-Lahiq, [facility] 01:21:00 POC GLUCOSE 2021-09-14 Al-Lahiq, [facility] 21:57:00 POC GLUCOSE 2021-09-14 Al-Lahiq, Mah[facility] 17:17:00 IR TUNNELED DIALYSIS CATHETER 2021-09-14 [place]ano Owens [facility] REPLACEMENT/EXCHANGE 13:59:03 Oliver-Eloy HEMODIALYSIS 2021-09-14 [facility] 12:42:40 Alexandru Das POC GLUCOSE 2021-09-14 [facility] 11:19:00 BASIC METABOLIC PANEL 2021-09-14 [facility] 09:34:00 Alexandru Das ESTIMATED GFR 2021-09-14 [facility]00 Alexandru PaceZCOVID-19 ANTI-SPIKE IGG 2021-09-14 [place] Owens [facility] ANTIBODY TITER 03:25:00 Poornima TYPE AND SCREEN 2021-09-14 [facility] 03:25:00 Poornima PaceZCOVID-19 SEROLOGY PATIENT 2021-09-14 [place] Owens [facility] SURVEILLANCE 03:25:00 Poornima POC GLUCOSE 2021-09-14 [facility] 01:33:00 POC GLUCOSE 2021-09-13 Al-Lahiq, [facility] 23:43:00 SURGICAL PATHOLOGY REQUEST 2021-09-13 Al-Kaitlyn, [facility] 20:11:00 ESOPHAGOGASTRODUODENOSCOPY (EGD) 2021-09-13 [facility] 19:58:00 Caludio Ongeri POC GLUCOSE 2021-09-13 Al-Lahiq, [facility] Hospit al 17:23:00 POC GLUCOSE 2021-09-13 Al-Lahiq, [facility] 11:26:00 BASIC METABOLIC PANEL 2021-09-13 [facility] 10:25:00 Alexandru Das CBC WITH PLATELET AND 2021-09-13 [facility], [facility] DIFFERENTIAL 10:25:00 PARTIAL THROMBOPLASTIN TIME (PTT) 2021-09-13 [facility] 10[facility]25:00 ESTIMATED GFR 2021-09-13 [facility] 10:25:00 Alexandru Das PROTHROMBIN TIME WITH INR 2021-09-13 [facility] 10:25:00 POC GLUCOSE 2021-09-13 [facility], [facility] 00:48:00 ECG 12-LEAD 2021-09-12 [facility] Hospit al 23:22:14 Claudio Ongeri POC GLUCOSE 2021-09-12 [facility], [facility] 22:53:00 POC GLUCOSE 2021-09-12 Al-Lahiq, [facility] al 21:49:00 POC GLUCOSE 2021-09-12 Al-Lahiq, [facility] Hospit al 16:57:00 POC GLUCOSE 2021-09-12 Al-Lahiq, [facility] al 11:26:00 POC GLUCOSE 2021-09-12 Al-Lahiq, [facility] al 11:01:00 BASIC METABOLIC PANEL 2021-09-12 [facility] 09:15:00 Alexandru Das ESTIMATED GFR 2021-09-12 [facility] 09:15:00 Alexandru Nilorao HEMODIALYSIS 2021-09-12 [facility] 02:06:24 Alexandru Laxmanrao POC GLUCOSE 2021-09-12 Al-Lahiq, [facility] Hospit al 01:05:00 POC GLUCOSE 2021-09-11 Al-Lahiq, [facility] Hospit al 21:53:00 POC GLUCOSE 2021-09-11 Al-Lahiq, [facility] Hospit al 16:41:00 HEMODIALYSIS 2021-09-11 [facility] 15:53:24 Alexandru Nilorao POC GLUCOSE 2021-09-11 Al-Lahiq, [facility] Hospit al 11:14:00 ZZCOVID-19 ANTI-SPIKE IGG 2021-09-11 [facility], [facility] ANTIBODY TITER 09:40:00 BASIC METABOLIC PANEL 2021-09-11 [facility] 09:40:00 Alexandrura Suo HEMOGLOBIN A1C 2021-09-11 Al-Lawyq, [facility] Hospit al 09:40:00 ZZCOVID-19 SEROLOGY PATIENT 2021-09-11 [facility], [facility] SURVEILLANCE 09:40:00 CBC WITH PLATELET AND 2021-09-11 [facility], [facility] DIFFERENTIAL 09:40:00 ESTIMATED GFR 2021-09-11 [facility] al 09:40:00 Alexandru Jose Manuelmanrao POC GLUCOSE 2021-09-11 Al-Lahiq, [facility] Hospit al 00:39:00 POC GLUCOSE 2021-09-10 Al-Lahiq, [facility] Hospit al 21:14:00 CORTISOL LEVEL, AM 2021-09-10 Al-Lahiq, [facility] 16:58:00 POC GLUCOSE 2021-09-10 Al-Lahiq, [facility] al 15:59:00 POC GLUCOSE 2021-09-10 Al-Lahiq, [facility] al 11:26:00 BASIC METABOLIC PANEL 2021-09-10 [facility] 09:55:00 Alexandru Laxmanrao ESTIMATED GFR 2021-09-10 [facility] 09:55:00 Alexandru Laxmanrao POC GLUCOSE 2021-09-10 Al-Lahiq, [facility] Hospit al 00:18:00 POC GLUCOSE 2021-09-09 Al-Lahiq, [facility] 21:28:00 POC GLUCOSE 2021-09-09 Al-Lahiq, [facility] al 16:28:00 CT HEAD WO CONTRAST 2021-09-09 Al-Lahiq, [facility] spital 14:48:37 HEMODIALYSIS 2021-09-09 [facility] 14:08:47 Alexandru Laxmanrao POC GLUCOSE 2021-09-09 Al-Lahiq, [facility] Hospit al 11:30:00 BASIC METABOLIC PANEL 2021-09-09 [facility] 10:45:00 Alexandru Laxmanrao ESTIMATED GFR 2021-09-09 [facility] 10:45:00 Alexandru Laxmanrao POC GLUCOSE 2021-09-09 Al-Lahiq, [facility] Hospit al 01:10:00 POC GLUCOSE 2021-09-08 Al-Lahiq, [facility] Hospit al 21:16:00 POC GLUCOSE 2021-09-08 Al-Lahiq, [facility] Hospit al 16:10:00 BASIC METABOLIC PANEL 2021-09-08 Fraser, [facility] 09:27:00 MAGNESIUM LEVEL 2021-09-08 [facility] Hospit al 09:27:00 ESTIMATED GFR 2021-09-08 [facility] Hospit al 09:27:00 GASTROINTESTINAL PATHOGENS PANEL, 2021-09-08 Kimmy Cronin [facility] PCR 02:15:00 POC GLUCOSE 2021-09-08 Al-Lahiq, [facility] Hospit al 01:30:00 BASIC METABOLIC PANEL 2021-09-07 [facility], [facility] 18:00:00 ESTIMATED GFR 2021-09-07 [facility], [facility] Hospit al 18:00:00 HEPATITIS B SURFACE ANTIGEN 2021-09-07 [facility] 18:00:00 Alexandru Corcoran HEPATITIS B SURFACE AB, 2021-09-07 [facility] 18:00:00 Alexandru Das XR CHEST 1 VW PORTABLE 2021-09-07 [facility], [facility] 16:47:43 XR ABDOMEN 1 VW 2021-09-07 [facility], [facility] Hospit al 16:47:22 HEMODIALYSIS 2021-09-07 Haja Fraser [facility] 16:16:15 POC GLUCOSE 2021-09-07 [facility], [facility] Hospit al 11:07:00 TROPONIN T 2021-09-07 Trinidad Menard [facility] 03:35:00 Libia TROPONIN T 2021-09-07 [facility]00 RESPIRATORY PATHOGEN PANEL WITH 2021-09-06 [facility] COVID-19 RT-PCR 23:59:00 CT ABDOMEN PELVIS WO CONTRAST 2021-09-06 [facility] 22:16:48 ECG ED PRELIMINARY INTERPRETATION 2021-09-06 [facility] 21:23:51 ECG 12-LEAD 2021-09-06 [facility] al 20:48:53 CBC WITH PLATELET AND 2021-09-06 [facility] DIFFERENTIAL 20:09:00 COMPREHENSIVE METABOLIC PANEL 2021-09-06 [facility] 20:09:00 ESTIMATED GFR 2021-09-06 [facility] 20:09:00 MAGNESIUM LEVEL 2021-09-06 [facility] 20:09[facility]00 TROPONIN T 2021-09-06 [facility] 20:09:00 PHOSPHORUS LEVEL 2021-09-06 [facility] true 20:09:00 POC GLUCOSE 2021-08-13 [place] [facility] 16:22:00 [place] POC GLUCOSE 2021-08-13 Kohlnhofer, [facility] 11:17:00 [place] XR CHEST 1 VW PORTABLE 2021-08-13 [facility] 11:13:27 BASIC METABOLIC PANEL 2021-08-13 [facility] 10:26:00 ESTIMATED GFR 2021-08-13 [facility] Hospit al 10:26:00 POC GLUCOSE 2021-08-13 Rupalilnhofer, [facility] 00:38:00 [place] HEMODIALYSIS 2021-08-13 [facility] 00:09:24 [place] AN ELECTIVE ENDOTRACHEAL 2021-08-12 [facility] AIR[facility] 23:45:00 INSERTION, CATHETER, DIALYSIS, 2021-08-12 [facility] PERITONEAL, LAPAROSCOPIC 23:10:00 POC GLUCOSE 2021-08-12 Rupalilnhofer, [facility] 20:36:00 [place] COVID-19 QUALITATIVE RT-PCR 2021-08-12 [facility] 17:35:00 POC GLUCOSE 2021-08-12 Kohlnhofer, [facility] 15:58:00 [place] POC GLUCOSE 2021-08-12 Rupalilnhofer, [facility] 11:07:00 [place] ECG 12-LEAD 2021-08-12 Harry, [facility] 11:02:39 Ricky London BASIC METABOLIC PANEL 2021-08-12 [facility] 09:47:00 Alexandru Das ESTIMATED GFR 2021-08-12 [facility] 09:47:00 Alexandru Das POC GLUCOSE 2021-08-12 Rupalilnhofer, [facility] 00:51:00 [place] POC GLUCOSE 2021-08-11 Kohlnhofer, [facility] 20:44:00 [place] POC GLUCOSE 2021-08-11 Kohlnhofer, [facility] 16:14:00 [place] POC GLUCOSE 2021-08-11 Kohlnhofer, [facility] 11:06:00 [place] POC GLUCOSE 2021-08-11 Kohlnhofer, [facility] 00:30:00 [place] POC GLUCOSE 2021-08-10 Kohlnhofer, [facility] 20:48:00 Annalee POC GLUCOSE 2021-08-10 [place] 11:07:00 Annalee POC GLUCOSE 2021-08-10 [facility] 00:46:00 Annalee POC GLUCOSE 2021-08-09 [facility] 21:37:00 Annalee H[facility]IALYSIS 2021-08-09 [facility] 17:13:01 Alexandru Laxmanrao POC GLUCOSE 2021-08-[address] [facility] 16:55:00 Annalee POC GLUCOSE 2021-08-09 Tammy Dumont [facility] 11:19:00 Donna BASIC METABOLIC PANEL 2021-08-09 [facility] 10:52:00 Alexandru Thiago ESTIMATED GFR 2021-08-09 [facility] 10:52:00 Alexandru Das PROCALCITONIN 2021-08-09 Hyacinth Guthrie [facility] 02:51:00 POC GLUCOSE 2021-08-09 Tam[facility] Dumont [facility] 00:26:00 Donna POC GLUCOSE 2021-08-08 [facility] Dumont [facility] 21:18:00 Donna POC GLUCOSE 2021-08-08 [facility] 19:34:00 Donna POC GLUCOSE 2021-08-08 [facility] Dum[facility] 10:58:00 Donna DIGOXIN LEVEL 2021-08-08 Ritu Graves [facility] 10:46:00 [place] BASIC METABOLIC PANEL 2021-08-08 [facility] 10:46:00 Alexandru Laxmano ESTIMATED GFR 2021-08-08 [facility] 10:46:00 Alexandru Laxmanrao POC GLUCOSE 2021-08-08 [facility] 02:06:00 Donna POC GLUCOSE 2021-08-07 [facility] Dum[facility] 23:09:00 Donna HEMODIALYSIS 2021-08-07 [facility] 20:13:07 Alexandru Laxmanrao POC GLUCOSE 2021-08-07 [facility] Dum[facility] 15:50:00 Donna POC GLUCOSE 2021-08-07 [facility] Dum[facility] 11:19:00 Donna CBC WITH PLATELET AND 2021-08-07 [facility] DIFFERENTIAL 11:15:00 Karie COMPREHENSIVE METABOLIC PANEL 2021-08-07 [facility] 11:15:00 Karie ESTIMATED GFR 2021-08-07 [facility] true 11:15:00 Karie POC GLUCOSE 2021-08-07 Tam[facility] Dumont [facility] 00:58:00 Donna HEMODIALYSIS 2021-08-06 [facility] 21:36:17 Alexandru Laxmanrao POC GLUCOSE 2021-08-06 Mougouris, Taso [facility] 21:21:00 POC GLUCOSE 2021-08-06 Mougouris, Taso [facility] 15:39:00 BASIC METABOLIC PANEL 2021-08-06 [facility] 11:19:00 Alexandru Laxmanrao ESTIMATED GFR 2021-08-06 [facility] 11:19:00 Alexandru Laxmanrao POC GLUCOSE 2021-08-06 Mougouris, Taso [facility] 09:09:00 POC GLUCOSE 2021-08-06 Mougouris, Taso [facility] 04:44:00 HEMODIALYSIS 2021-08-06 [facility] 02:34:43 Alexandru Laxmanrao POC GLUCOSE 2021-08-06 Mougouris, Taso [facility] 01:09:00 XR CHEST 1 VW PORTABLE 2021-08-05 [facility] 23:40:00 POC GLUCOSE 2021-08-05 Mougouris, Taso [facility] 21:24:00 OR FL < 1 HOUR 2021-08-05 [facility]00 [place] AN ELECTIVE SUPRAGLOTTIC 2021-08-05 Grazyna Martinez [facility] 20:19:00 Izzy INSERTION, CATHETER, CENTRAL 2021-08-05 Leiva Joanna [facility] VENOUS, TUNNELED, FOR 20:13:00 HEMODIALYSIS TYPE AND SCREEN 2021-08-05 Sincere, Ti [facility] 20:09:00 POC GLUCOSE 2021-08-05 Tasneem Ellison [facility] 15:43:00 ECG 12-LEAD 2021-08-05 [facility], Ti UJeannine [facility] 14:07:10 POC GLUCOSE 2021-08-05 Armen [facility] 11:25:00 Edwin XR CHEST 1 VW PORTABLE 2021-08-05 [facility], Ti [facility] 11:17:10 CBC WITH PLATELET AND 2021-08-05 [facility] DIFFERENTIAL 10:45:00 Karie BASIC METABOLIC PANEL 2021-08-05 [facility] 10:45:00 Karie ESTIMATED GFR 2021-08-05 [facility] 10:45:00 Karie POC GLUCOSE 2021-08-05 Armen [facility] 00:57:00 Edwin POC GLUCOSE 2021-08-04 Armen [facility] 16:51:00 Edwin XR ABDOMEN 1 VW 2021-08-04 [facility] 16:40:00 Karie POC GLUCOSE 2021-08-04 [facility] 11:[facility]00 Donna COMPLETE BLD COUNT W/AUTO DIFF 2021-08-04 Tim [facility] 11:06:00 Donna BASIC METABOLIC PANEL 2021-08-04 [facility] 11:06:00 Alexandru Laxmanrao MAGNESIUM LEVEL 2021-08-04 [facility] 11:06:00 Karie PHOSPHORUS LEVEL 2021-08-04 [facility] 11:06:00 Karie ESTIMATED GFR 2021[facility]08-04 [facility]00 Alexandru Laxmanrao POC GLUCOSE 2021-08-04 [facility] 00:57:00 Donna POC GLUCOSE 2021-08-03 [facility] 21:36:00 Donna HEPATITIS B CORE ANTIBODY TOTAL 2021-08-03 [facility] 17:42:00 Alexandru Das HEPATITIS B SURFACE AB, 2021-08-03 [facility] 17:42:00 Alexandru Das HEPATITIS C ANTIBODY 2021-08-03 [facility]ital 17:42:00 Alexandru Das HEPATITIS B SURFACE ANTIGEN 2021-08-03 [facility] 17:42:00 Alexandru Das POC GLUCOSE 2021-08-03 [facility] 16:38:00 Donna POC GLUCOSE 2021-08-03 [facility] 11:29:00 Donna COMPLETE BLD COUNT W/AUTO DIFF 2021-08-03 LuceroEnder hilario [facility] 11:03:00 Karie BASIC METABOLIC PANEL 2021-08-03 [facility] 11:03:00 Karie PHOSPHORUS LEVEL 2021-08-03 [facility] 11:03:00 Alexandru Das PARATHYROID HORMONE 2021-08-03 José Espino [facility] spital 11:03:00 Eltin ESTIMATED GFR 2021-08-03 [facility] 11:03:00 Karie POC GLUCOSE 2021-08-03 [facility] 00:22:00 Donna CV STRESS TEST NUCLEAR CARDIO 2021-08-02 [facility] 21:45:00 Bahaeddin A. NM MYOCARDIAL PERFUSION REST 2021-08-02 [facility] STRESS 1 DAY 21:45:00 Bahaeddin A. POC GLUCOSE 2021-08-02 [facility] 21:08:00 Donna POC GLUCOSE 2021-08-02 [facility] 16:34:00 Donna POC GLUCOSE 2021-08-02 [facility] 11:19:00 Donna HC COMPLETE BLD COUNT W/AUTO DIFF 2021-08-02 Ender Lucero [facility] 09:43:00 Karie BASIC METABOLIC PANEL 2021-08-02 [facility] 09:43:00 Karie MAGNESIUM LEVEL 2021-08-02 Nic [facility] true 09:43:00 Karie ESTIMATED GFR 2021-08-02 Nic [facility] true 09:43:00 Karie POC GLUCOSE 2021-08-02 Tim, [facility] 00:15:00 Donna POC GLUCOSE 2021-08-01 Tim, Tammy [facility] 20:02:00 Donna POC GLUCOSE 2021-08-01 Tim, Tammy [facility] 16:16:00 Donna POC GLUCOSE 2021-08-01 Tim, Tammy [facility] 11:16:00 Donna BASIC METABOLIC PANEL 2021-08-01 [facility] 10:56:00 Theresa MAGNESIUM LEVEL 2021-08-01 [facility] 10:56[facility]00 Theresa PHOSPHORUS LEVEL 2021-08-01 [facility] true 10:56:00 Theresa HC COMPLETE BLD COUNT W/AUTO DIFF 2021-08-01 [facility] 10:56:00 Karie ESTIMATED GFR 2021-08-01 [facility] 10:56:00 Theresa ECG 12-LEAD 2021-08-01 [facility] 08:03:48 Bahaeddin A. POC GLUCOSE 2021-08-01 Tam[facility] Dumont [facility] 01:35:00 Donna TTE COMPLETE, WO CONTRAST, W 2021-07-31 [id number] 23:38:00 Bahaeddin A. POC GLUCOSE 2021-07-31 Tam[facility] Dumont [facility] 22:40:00 Donna COVID-19 QUALITATIVE RT-PCR 2021-07-31 Rupali Lucero [facility] 17:14:00 Karie POC GLUCOSE 2021-07-31 Tam[facility] Dumont [facility] 17:07:00 Donna POC GLUCOSE 2021-07-31 Tim Tammy [facility] 12:13:00 Donna B NATRIURETIC PEPTIDE 2021-07-31 [facility] 11:34:00 Eltin BASIC METABOLIC PANEL 2021-07-31 [facility] 11:34:00 Eltin HC COMPLETE BLD COUNT W/AUTO DIFF 2021-07-31 [facility] 11:34:00 Eltin TROPONIN T 2021-07-31 [facility] 11:34:00 Eltin ESTIMATED GFR 2021-07-31 [facility] 11:34:00 Eltin Plan of Care [...] (2 - Td or Tdap)] Future Scheduled 2023-03-17 INFLUENZA VACCINE (#[facility]) [facility] 04:55:38 [code = INFLUENZA VACCINE (#1)] Future Scheduled 2023-03-17 [facility] Test 04:55:38 malignant neoplasm of colon (procedure) [code = 281520992] Future Scheduled 2023-03-17 [facility] Test 04:55:38 malignant neoplasm of colon (procedure) [code = 416157490] Future Scheduled 2023-03-17 [facility] Test 04:55:38 malignant neoplasm of colon (procedure) [code = 556863990] Future Scheduled 2023-03-17 DIABETIC FOOT EXAM [facility] Test 04:55:38 [code = DIABETIC FOOT EXAM] Future Scheduled 2023-03-17 [facility] Test 04:55:38 malignant neoplasm of colon (procedure) [code = 876924190] Future Scheduled 2023-03-17 [facility] Test 04:55:38 malignant neoplasm of colon (procedure) [code = 657070120] Future Scheduled 2023-03-17 DIABETES: RETINAL EYE [facility] Test 04:55:38 EXAM [code = DIABETES: RETINAL EYE EXAM] Future Scheduled 2023-03-17 SHINGLES VACCINES (2 [facility] 04:55:38 of 3) [code = SHINGLES VACCINES (2 of 3)] Future Scheduled 2023-03-17 BREAST CANCER [facility] Test 04:55:38 SCREENING [code = BREAST CANCER SCREENING] Future Scheduled 2023-03-17 COVID-19 VACCINE ([address] [place] [address] Test 04:55:38 season) [code = COVID-19 VACCINE ()] Future Scheduled 2023-01-20 Influenza Vaccine (#[facility] [code = Influenza Medical Ce nter Vaccine (#1)] Future Scheduled 2023-01-[address] [...] INFLUENZA VACCINE (Season Ended)] Future Scheduled 2023-01-20 Influenza Vaccine (#1) [facility] 00:00:00 [code = Influenza Medical Ce nter Vaccine (#1)] Future Scheduled 2023-01-[address] [...] Counseling and Screening (12+)] Future Scheduled 2022-12-27 Screening for [facility] Test 16:19:14 malignant neoplasm of colon (procedure) [code = 634088577] Future Scheduled 2022-12-27 Screening for [facility] Test 16:19:14 malignant neoplasm of colon (procedure) [code = 316914658] Future Scheduled 2022-12-27 Screening for [facility] Test 16:19:14 malignant neoplasm of colon (procedure) [code = 435198369] Future Scheduled 2022-12-27 DIABETIC FOOT EXAM [facility] Test 16:19:14 [code = DIABETIC FOOT EXAM] Future Scheduled 2022-12-27 Screening for [facility] Test 16:19:14 malignant neoplasm of colon (procedure) [code = 445176960] Future Scheduled 2022-12-27 Screening for [facility] Test 16:19:14 malignant neoplasm of colon (procedure) [code = 430563601] Future Scheduled 2022-12-27 DIABETES: RETINAL EYE [facility] Test 16:19:14 EXAM [code = DIABETES: RETINAL EYE EXAM] Future Scheduled 2022-12-27 SHINGLES VACCINES (2 Met [facility] Test 16:19:14 of 3) [code = SHINGLES VACCINES (2 of 3)] Future Scheduled 2022-12-27 BREAST CANCER [facility] Test 16:19:14 SCREENING [code = BREAST CANCER SCREENING] Future Scheduled 2022-12-27 COVID-19 VACCINE (4 - [facility] Test 16:19:14 Pfizer series) [code = COVID-19 VACCINE (4 - Pfizer series)] Future Scheduled 2022-12-27 [facility]ACCINE [facility] 16:19:14 [code = INFLUENZA VACCINE] Future Scheduled 2022-12-23 Screening for [facility] Test 16:29:20 malignant neoplasm of colon (procedure) [code = 375115369] Future Scheduled 2022-12-23 [facility] Test 16:29:20 malignant neoplasm of colon (procedure) [code = 754912863] Future Scheduled 2022-12-23 [facility] Test 16:29:20 malignant neoplasm of colon (procedure) [code = 257120549] Future Scheduled 2022-12-23 DIABETIC FOOT EXAM [facility] Test 16:29:20 [code = DIABETIC FOOT EXAM] Future Scheduled 2022-12-23 Screening for [facility] Test 16:29:20 malignant neoplasm of colon (procedure) [code = 579281896] Future Scheduled 2022-12-23 Screening for [facility] Test 16:29:20 malignant neoplasm of colon (procedure) [code = 309319914] Future Scheduled 2022-12-23 DIABETES: RETINAL EYE [facility] Test 16:29:20 EXAM [code = DIABETES: RETINAL EYE EXAM] Future Scheduled 2022-12-23 SHINGLES VACCINES (2 Met [facility] Test 16:29:20 of 3) [code = SHINGLES VACCINES (2 of 3)] Future Scheduled 2022-12-23 BREAST CANCER [facility] Test 16:29:20 SCREENING [code = BREAST CANCER SCREENING] Future Scheduled 2022-12-23 COVID-19 VACCINE (4 - [facility] Test 16:29:20 Pfizer series) [code = COVID-19 VACCINE (4 - Pfizer series)] Future Scheduled 2022-12-23 [facility]ACCINE [facility] 16:29:20 [code = INFLUENZA VACCINE] Future Scheduled 2022-11-04 Screening for [facility] Test 18:43:52 malignant neoplasm of colon (procedure) [code = 297967479] Future Scheduled 2022-11-04 Screening for [facility] Test 18:43:52 malignant neoplasm of colon (procedure) [code = 496868677] Future Scheduled 2022-11-04 Screening for [facility] Test 18:43:52 malignant neoplasm of colon (procedure) [code = 313178664] Future Scheduled 2022-11-04 DIABETIC FOOT EXAM [facility] Test 18:43:52 [code = DIABETIC FOOT EXAM] Future Scheduled 2022-11-04 [facility] malignant neoplasm of colon (procedure) [code = 005593216] Future Scheduled 2022-11-04 [facility] Test 18:43:52 malignant neoplasm of colon (procedure) [code = 872510603] Future Scheduled 2022-11-04 DIABETES: RETINAL EYE [facility] Test 18:43:52 EXAM [code = DIABETES: RETINAL EYE EXAM] Future Scheduled 2022-11-04 SHINGLES VACCINES (2 Met [facility] Test 18:43:52 of 3) [code = SHINGLES VACCINES (2 of 3)] Future Scheduled 2022-11-04 [facility] 18:43:52 SCREENING [code = BREAST CANCER SCREENING] Future Scheduled 2022-11-04 COVID-19 VACCINE (4 - [facility] Test 18:43:52 Pfizer series) [code = COVID-19 VACCINE (4 - Pfizer series)] Future Scheduled 2022-11-04 [facility] 18:43:52 [code = INFLUENZA VACCINE] Future Scheduled 2022-11-04 [facility] 18:43:52 malignant neoplasm of colon (procedure) [code = 276368102] Future Scheduled 2022-11-04 Screening for [facility] Test 18:43:52 malignant neoplasm of colon (procedure) [code = 079588353] Future Scheduled 2022-11-04 Screening for [facility] Test 18:43:52 malignant neoplasm of colon (procedure) [code = 164866925] Future Scheduled 2022-11-04 DIABETIC FOOT EXAM [facility] Test 18:43:52 [code = DIABETIC FOOT EXAM] Future Scheduled 2022-11-04 Screening for [facility] Test 18:43:52 malignant neoplasm of colon (procedure) [code = 328191210] Future Scheduled 2022-11-04 Screening for [facility] Test 18:43:52 malignant neoplasm of colon (procedure) [code = 403177865] Future Scheduled 2022-11-04 DIABETES: RETINAL EYE [facility] Test 18:43:52 EXAM [code = DIABETES: RETINAL EYE EXAM] Future Scheduled 2022-11-04 SHINGLES VACCINES (2 Met [facility] Test 18:43:52 of 3) [code = SHINGLES VACCINES (2 of 3)] Future Scheduled 2022-11-04 BREAST CANCER [facility] Test 18:43:52 SCREENING [code = BREAST CANCER SCREENING] Future Scheduled 2022-11-04 COVID-19 VACCINE (4 - [facility] Test 18:43:52 Pfizer series) [code = COVID-19 VACCINE (4 - Pfizer series)] Future Scheduled 2022-11-04 [facility]INE [facility] 18:43:52 [code = INFLUENZA VACCINE] Future Scheduled 2022-09-27 DIABETIC FOOT EXAM [facility] Test 12:29:06 [code = DIABETIC FOOT EXAM] Future Scheduled 2022-09-27 COLONOSCOPY SCREENING [facility] Test 12:29:06 [code = COLONOSCOPY SCREENING] Future Scheduled 2022-09-27 DIABETES: RETINAL EYE [facility] Test 12:29:06 EXAM [code = DIABETES: RETINAL EYE EXAM] Future Scheduled 2022-09-27 SHINGLES VACCINES (1 [facility] Test 12:29:06 of 2) [code = SHINGLES VACCINES (1 of 2)] Future Scheduled 2022-09-27 BREAST CANCER [facility] Test 12:29:06 SCREENING [code = BREAST CANCER SCREENING] Future Scheduled 2022-09-27 COVID-19 VACCINE (4 - [facility] Test 12:29:06 Booster for Pfizer series) [code = COVID-19 VACCINE (4 - Booster for Pfizer series)] Future Scheduled 2022-09-27 [facility]ZA [facility]ACCINE [facility] 12:29:06 [code = INFLUENZA VACCINE] Future Scheduled 2022-09-27 DIABETIC FOOT EXAM [facility] Test 12:29:06 [code = DIABETIC FOOT EXAM] Future Scheduled 2022-09-27 COLONOSCOPY SCREENING [facility] Test 12:29:06 [code = COLONOSCOPY SCREENING] Future Scheduled 2022-09-27 DIABETES: RETINAL EYE [facility] Test 12:29:06 EXAM [code = DIABETES: RETINAL EYE EXAM] Future Scheduled 2022-09-27 SHINGLES VACCINES (1 [facility] Test 12:29:06 of 2) [code = SHINGLES VACCINES (1 of 2)] Future Scheduled 2022-09-27 [facility] Test 12:29:06 SCREENING [code = BREAST CANCER SCREENING] Future Scheduled 2022-09-27 COVID-19 VACCINE (4 - [facility] Test 12:29:06 Booster for Pfizer series) [code = COVID-19 VACCINE (4 - Booster for Pfizer series)] Future Scheduled 2022-09-27 [facility] 12:29:06 [code = INFLUENZA VACCINE] Future Scheduled 2022-09-27 DIABETIC FOOT EXAM [facility] Test 12:29:06 [code = DIABETIC FOOT EXAM] Future Scheduled 2022-09-27 COLONOSCOPY SCREENING [facility] Test 12:29:06 [code = COLONOSCOPY SCREENING] Future Scheduled 2022-09-27 DIABETES: RETINAL EYE [facility] Test 12:29:06 EXAM [code = DIABETES: RETINAL EYE EXAM] Future Scheduled 2022-09-27 SHINGLES VACCINES (1 Met [facility] Test 12:29:06 of 2) [code = SHINGLES VACCINES (1 of 2)] Future Scheduled 2022-09-27 BREAST CANCER [facility] Test 12:29:06 SCREENING [code = BREAST CANCER SCREENING] Future Scheduled 2022-09-27 COVID-19 VACCINE (4 - [facility] Test 12:29:06 Booster for Pfizer series) [code = COVID-19 VACCINE (4 - Booster for Pfizer series)] Future Scheduled 2022-09-27 [facility]ZA [facility]ACCINE [facility] 12:29:06 [code = INFLUENZA VACCINE] Future Scheduled 2022-08-20 DIABETIC FOOT EXAM [facility] Test 03:10:19 [code = DIABETIC FOOT EXAM] Future Scheduled 2022-08-20 COLONOSCOPY SCREENING [facility] Test 03:10:19 [code = COLONOSCOPY SCREENING] Future Scheduled 2022-08-20 DIABETES: RETINAL EYE [facility] Test 03:10:19 EXAM [code = DIABETES: RETINAL EYE EXAM] Future Scheduled 2022-08-20 SHINGLES VACCINES (1 [facility] Test 03:10:19 of 2) [code = SHINGLES VACCINES (1 of 2)] Future Scheduled 2022-08-20 BREAST CANCER [facility] Test 03:10:19 SCREENING [code = BREAST CANCER SCREENING] Future Scheduled 2022-08-20 COVID-19 VACCINE (4 - [facility] Test 03:10:19 Booster for Pfizer series) [code = COVID-19 VACCINE (4 - Booster for Pfizer series)] Future Scheduled 2022-08-20 [facility]ACCINE [facility] 03:10:19 [code = INFLUENZA VACCINE] Future Scheduled 2022-07-19 DIABETIC FOOT EXAM [facility] Test 07:26:52 [code = DIABETIC FOOT EXAM] Future Scheduled 2022-07-19 COLONOSCOPY SCREENING [facility] Test 07:26:52 [code = COLONOSCOPY SCREENING] Future Scheduled 2022-07-19 DIABETES: RETINAL EYE [facility] Test 07:26:52 EXAM [code = DIABETES: RETINAL EYE EXAM] Future Scheduled 2022-07-19 SHINGLES VACCINES (1 Met [facility] Test 07:26:52 of 2) [code = SHINGLES VACCINES (1 of 2)] Future Scheduled 2022-07-19 BREAST CANCER [facility] Test 07:26:52 SCREENING [code = BREAST CANCER SCREENING] Future Scheduled 2022-07-19 COVID-19 VACCINE (4 - [facility] Test 07:26:52 Booster for Pfizer series) [code = COVID-19 VACCINE (4 - Booster for Pfizer series)] Future Scheduled 2022-07-19 INFLU[facility]ZA VACCINE [facility] Test 07:26:52 [code = INFLUENZA VACCINE] [...] SCREENING] Future Scheduled 2022-05-17 DIABETIC FOOT EXAM [facility] Test 10:42:08 [code = DIABETIC FOOT EXAM] Future Scheduled 2022-05-17 COLONOSCOPY SCREENING [facility] Test 10:42:08 [code = COLONOSCOPY SCREENING] Future Scheduled 2022-05-17 DIABETES: RETINAL EYE [facility] Test 10:42:08 EXAM [code = DIABETES: RETINAL EYE EXAM] Future Scheduled 2022-05-17 SHINGLES VACCINES (1 Met [facility] Test 10:42:08 of 2) [code = SHINGLES VACCINES (1 of 2)] Future Scheduled 2022-05-17 BREAST CANCER [facility] Test 10:42:08 SCREENING [code = BREAST CANCER SCREENING] Future Scheduled 2022-05-17 COVID-19 VACCINE (4 - [facility] Test 10:42:08 Booster for Pfizer series) [code = COVID-19 VACCINE (4 - Booster for Pfizer series)] Future Scheduled 2022-05-17 INFLU[facility]ZA [facility]ACCINE [facility] 10:42:08 [code = INFLUENZA VACCINE] [...] DXA [facility] Test 00:00:00 SCAN] [facility] Future Scheduled [address] [facility]00 malignant neoplasm of [facility] Center colon (procedure) [code = 254846878] Future Scheduled [address] [facility]00 [facility] [[facility] = 348636928] Future Scheduled 1948 Sigmoidoscopy [facility] Future Scheduled [address] [facility] [facility] Test 00:00:00 [facility] [code = 716539740] Future Scheduled [address] [facility] 00:00:00 (combo) [code = CT Medical C enter Colonography (combo)] Future Scheduled [address] [facility] Test 00:00:00 [facility] colon (procedure) [code = 530228737] Future Scheduled [address] [facility] Test 00:00:00 [facility] colon (procedure) [code = 958787610] Future Scheduled [address] [facility] Test 00:00:00 [facility] breast (procedure) [code = 009272382] Future Scheduled [address] [facility] 00:00:00 (combo) [code = CT Medical C enter Colonography (combo)] Future Scheduled [address] [facility] Test 00:00:00 malignant [facility]oplasm [facility] colon (procedure) [code = 040797798] Future Scheduled [address] [facility] Test 00:00:00 malignant [facility] colon (procedure) [code = 242481806] Future Scheduled 1948 DXA SCAN [code = DXA [facility] Test 00:00:00 SCAN] [facility] Future Scheduled [address] [facility] Test 00:00:00 [facility] colon (procedure) [code = 181404075] Future Scheduled [address] [facility] Test 00:00:00 [facility] colon (procedure) [code = 799362417] Future Scheduled 1948 [facility]oid[facility] [facility] breast (procedure) [code = 982676189] Future Scheduled [address] [facility] 00:00:00 (combo) [code = CT Medical C enter Colonography (combo)] Future Scheduled [address] [facility] 00:00:00 [facility] colon (procedure) [code = 717087346] Future Scheduled [address] [facility] 00:00:00 [facility] colon (procedure) [code = 920640413] Future Scheduled 1948 DXA SCAN [code = DXA [facility] 00:00:00 SCAN] [facility] Future Scheduled [address] [facility] 00:00:00 [facility] colon (procedure) [code = 023869910] Future Scheduled [address] [facility] 00:00:00 [facility] colon (procedure) [code = 070809292] Future Scheduled 1948 Sigmoidoscopy [facility]code [facility]] [facility] Future Scheduled [address] [facility] 00:00:00 [facility] breast (procedure) [code = 768320325] Future Scheduled [address] [facility] 00:00:00 (combo) [code = CT Medical C enter Colonography (combo)] Future Scheduled [address] [facility] 00:00:00 [facility] colon (procedure) [code = 627762648] Future Scheduled [address] [facility] 00:00:00 [facility] colon (procedure) [code = 934466510] Future Scheduled 1948 DXA SCAN [code = DXA [facility] 00:00:00 SCAN] [facility] Future Scheduled [address] [facility] 00:00:00 [facility] colon (procedure) [code = 074302350] Future Scheduled [address] [facility] 00:00:00 [facility] colon (procedure) [code = 737722465] Future Scheduled 1948 [facility]oid[facility] [address] [facility] 00:00:00 [facility] breast (procedure) [code = 262736365] Future Scheduled [address] [facility] 00:00:00 (combo) [code = CT Medical C enter Colonography (combo)] Future Scheduled [address] [facility] 00:00:00 [facility] colon (procedure) [code = 844476670] Future Scheduled [address] [facility] 00:00:00 [facility] colon (procedure) [code = 042347342] Future Scheduled 1948 DXA SCAN [code = DXA [facility] 00:00:00 SCAN] [facility] Future Scheduled [address] [facility] 00:00:00 [facility] colon (procedure) [code = 361664496] Future Scheduled [address] [facility] 00:00:00 [facility] colon (procedure) [code = 970581574] Future Scheduled 1948 Sigmoidoscopy [facility]code [facility]] [facility] Future Scheduled [address] [facility] 00:00:00 [facility] breast (procedure) [code = 885276416] Future Scheduled [address] [facility] 00:00:00 (combo) [code = CT Medical C enter Colonography (combo)] Future Scheduled [address] [facility] 00:00:00 [facility] colon (procedure) [code = 595467791] Future Scheduled [address] [facility] 00:00:00 [facility] colon (procedure) [code = 266961735] Future Scheduled 1948 DXA SCAN [code = DXA [facility] 00:00:00 SCAN] [facility] Future Scheduled [address] [facility] 00:00:00 [facility] colon (procedure) [code = 484122065] Future Scheduled [address] [facility] 00:00:00 [facility] colon (procedure) [code = 454455493] Future Scheduled 1948 [facility]oidoscopy [facility]] [facility] Future Scheduled [address] [facility] 00:00:00 [facility] breast (procedure) [code = 140821324] Future Scheduled [address] [facility] 00:00:00 (combo) [code = CT Medical C enter Colonography (combo)] Future Scheduled [address] [facility] 00:00:00 [facility] colon (procedure) [code = 445807034] Future Scheduled [address] [facility] 00:00:00 [facility] colon (procedure) [code = 160139923] Future Scheduled 1948 DXA SCAN [code = DXA [facility] 00:00:00 SCAN] [facility] Future Scheduled [address] [facility] 00:00:00 [facility] colon (procedure) [code = 020022857] Future Scheduled [address] [facility] 00:00:00 [facility] colon (procedure) [code = 636450300] Future Scheduled 1948 S[facility]oidoscopy [facility]code [facility] [address] [facility] 00:00:00 [facility] breast (procedure) [code = 764846129] Future Scheduled [address] [facility] 00:00:00 (combo) [code = CT Medical C enter Colonography (combo)] Future Scheduled [address] [facility] 00:00:00 [facility] colon (procedure) [code = 040257700] Future Scheduled [address] [facility] 00:00:00 [facility] colon (procedure) [code = 281700929] Future Scheduled 1948 DXA SCAN [code = DXA [facility] 00:00:00 SCAN] [facility] Future Scheduled [address] [facility] 00:00:00 [facility] colon (procedure) [code = 164472797] Future Scheduled [address] [facility] 00:00:00 [facility] colon (procedure) [code = 543373159] Future Scheduled 1948 Sigmoidoscopy [facility]code [facility] [address] [facility] 00:00:00 [facility] breast (procedure) [code = 886933024] Future Scheduled [address] [facility] 00:00:00 (combo) [code = CT Medical C enter Colonography (combo)] Future Scheduled [address] [facility] 00:00:00 [facility] colon (procedure) [code = 846123809] Future Scheduled [address] [facility] 00:00:00 [facility] colon (procedure) [code = 989672750] Future Scheduled 1948 DXA SCAN [code = DXA [facility] 00:00:00 SCAN] [facility] Future Scheduled [address] [facility] 00:00:00 [facility] colon (procedure) [code = 713873820] Future Scheduled [address] [facility] 00:00:00 malignant [facility] colon (procedure) [code = 456282827] Future Scheduled 1948 Sigmoidoscopy [facility]code [facility] S[facility]oscopy] Medical [facility] Encounters Start End Encounter Admission Attending Care Care Encounter Source Date/Time Date/Time Type Type Clinicians Facility Department ID 2022-10-09 Outpatient 3 [id number] [facility] REF [id number] [facility] 14:26:14 [facility] [place] 2022-10-08 Outpatient 3 [id number] [facility] REF [id number] [facility] 10:03:46 [facility]20 [facility] [place] 2022-06-08 Inpatient SHERRI Fuentes, JEANECL DAYS [id number] [facility] 09:00:00 Greg 07 [facility] 2022-01-05 Inpatient UR [facility] Vascular [id number] [facility] 13:58:43 Kim [facility] 2021-11-04 Outpatient [facility] [id number] [place] 14:10:46 [id number] [facility] 2021-08-11 Outpatient [facility] [id number] [place] 09:26:19 [id number] [facility] 2022-10-10 2022-10-26 Inpatient 3 SALLY Philippe CRD [id number] [facility] 17:08:00 11:30:00 Anirudh 0522 [facility] [place] 2022-07-05 2022-07-05 Orders Doctor MACKENZIE 1.2.840.114 [id number] [facility] 00:00:00 00:00:00 Only Unassigned, YARELI 350.1.13.10 [facility] 4.2.7.2.686 Kev as [id number] [address] 2022-04-01 2022-04-01 Orders Doctor MACKENZIE 1.2.840.114 [id number] Univers 00:00:00 00:00:00 Only Unassigned, YARELI 350.1.13.10 [facility] [place] [facility] 4.2.7.2.686 Kev as [id number] [facility] [address] [place] 2022-03-24 2022-03-24 Telephone TABITHA Barillas 1.2.069.006 [id number] Univers 00:00:00 00:00:00 [facility] 350.1.13.10 it y of [place] 4.2.7.2.686 Kev as MARISA?BLEA [id number] Ok garcía LOVE 198 [facility] 2022-03-23 2022-03-23 Telephone Eran [facility] 1.2.478.506 [id number] Univers 00:00:00 00:00:00 Luc S HEALTH 350.1.13.10 it y of [place] 4.2.7.2.686 Kev as MARISA?BLEA [phone] Ok garcía LOVE 198 [facility] 2022-03-18 2022-03-18 [facility]phone [facility] 1.2.840.114 [id number] Univers 00:00:00 00:00:00 Alannah L HEALTH 350.1.13.10 it y of [place] 4.2.7.2.686 Kev as MARISA?BLEA [phone] Ok garcía LOVE 198 [facility] 2022-03-16 2022-03-16 [facility]phone [facility] 1.2.840.114 [id number] Univers 00:00:00 00:00:00 Alannah SPECIALTY 350.1.13.10 ity [place] [phone] Ok garcía [place] 198 [facility] 2022-01-07 2022-01-18 [facility] Surgery [id number] [facility] 17:48:00 16:48:00 ANNALEE 2022-01-07 2022-01-18 Hospital UR Annalee Bey Jan [facility] [id number] [facility] St 17:48:00 16:48:00 Encounter Mauro Mendoza [facility] 2022-01-07 2022-01-07 Travel [facility] [id number] [facility] St 00:00:00 00:00:00 [facility] 2022-01-02 2022-01-02 Outpatient R [facility] NUT [id number] Univers 00:00:00 00:00:00 ALANNAH durand [facility] 2021-09-06 2021-09-16 Hospital Trinidad Menard 1.2.840.1 10 [id number] Methodi 14:46:00 18:55:00 Encounter Corrine Osuna 38249.1.[address] 3.430.2.7 Hospit a .3.712391 l .8 2021-09-13 2021-09-13 Anesthesia Zaynabnarayan, 1.2.840.1 [id number] Methodi 14:58:00 15:19:00 Event Edwin 69746.1.[address] [place] 3.430.2.7 Hospit a .3.370216 l .8 2021-09-13 2021-09-13 Surgery John, 1.2.840.1 [id number] Methodi 14:22:00 14:27:[address] Marthai 3.430.2.7 Hospit a .3.272294 l .8 2021-09-06 2021-09-06 Travel 1.2.840.1 1.2.026.238 7420 [id number] Methodi 00:00:00 00:00:[address] 3.430.2.7 0.2.7.3.698 Ho spita .3.803743 084.8 l .8 2021-07-31 2021-08-13 Hospital Tammy Dumont 1.2.840.1 [id number] Methodi 04:12:00 19:46:00 Encounter Edwin Ayers 80593.1.[address] Tasneem Ellison 3.430.2.7 Hospita Annalee Nuñez .3.580757 l .8 2021-08-12 2021-08-12 Anesthesia Leodan Rebolledo 1.2.840.1 [id number] 2 [id number] Methodi 18:09:00 19:38:[address] 3.430.2.7 Hospit a .3.351205 l .8 2021-08-12 2021-08-12 Surgery Ru, 1.2.840.1 [id number] Methodi 17:35:00 18:50:[address] 3.430.2.7 Hospit a .3.217133 l .8 2021-08-05 2021-08-05 Anesthesia RamonAndre 1.2.840.1 [id number] Methodi 15:12:00 16:16:00 Event Grazyna Martinez 52174.1.[address] 3.430.2.7 Hospit a .3.932083 l .8 2021-08-05 2021-08-05 Surgery Leiva, 1.2.840.1 [id number] Methodi 15:20:00 16:05:[address] 3.430.2.7 Hospit a .3.013337 l .8 2021-08-02 2021-08-02 Documentat Provider, 1.2.840.1 [id number] 2 [id number] Methodi 00:00:00 00:00:00 ion Unknown 88860.1.[address] 3.430.2.7 Hospit a .3.458359 l .8 2021-07-14 2021-07-14 Transcribe Shabana 1.2.840.1 [id number] Methodi 00:00:00 00:00:00 Orders , Zulema 29929.1.[address] 3.430.2.7 Hospit a .3.859810 l .8 2021-06-10 2021-06-10 Clinical 1.2.840.1 [id number] 83275 51352 Methodi 15:45:00 15:58:[address] 3.430.2.7 Hospit a .3.143079 l .8 2021-06-10 2021-06-10 Travel 1.2.840.1 1.2.230.729 8139 [id number] Methodi 00:00:00 00:00:[address] 3.430.2.7 0.2.7.3.698 Ho spita .3.903118 084.8 l .8 2021-06-09 2021-06-09 Outpatient Sudheer_T P VFP [id number] 02-08 [facility] 11:40:00 11:40:00 [id number] Family Practic e 2021-06-01 2021-06-04 Outpatient AL-LAHIQ, [facility] [id number] [place] 00:00:00 00:00:00 MAHA [address] 2020-08-05 2020-08-05 [facility] 532 [id number] [place] 00:00:00 00:00:00 , ZULEMA [address] 2020-07-09 2020-07-09 Outpatient [facility] [id number] [place] 00:00:00 00:00:[address] 2020-06-18 2020-06-18 Outpatient [facility] [id number] [place] 00:00:00 00:00:[address] 2020-04-05 2020-04-06 Outpatient AL[place]LAHIQ, [place] [address] [id number] 27083 [place] 00:00:00 00:00:00 MAHA [address] 2020-03-22 2020-03-25 Inpatient AL-LAHIQ, [facility]4 [id number] 8994 [place] 00:00:00 00:00:00 MAHA [address] 2020-02-27 2020-02-27 Outpatient HIGUERA, [facility] [id number] [place] 00:00:00 00:00:00 DAVID [address] 2020-02-17 2020-02-18 Outpatient AL-LAHIQ, [facility]4 [id number] 73950 [place] 00:00:00 00:00:00 MAHA [address] 2020-01-17 2020-01-18 Emergency JOSE A, [facility]4 [id number] 46 [place] 00:00:00 00:00:00 SHAKEEL [address] 2019-10-23 2019-10-26 Inpatient AL-LAHIQ, [facility]4 [id number] [place] 00:00:00 00:00:00 MAHA [address] 2019-08-05 2019-08-05 Outpatient [facility] 148 [id number] [place] 00:00:00 00:00:00 , ZULEMA [address] 2019-07-10 2019-07-12 Inpatient AL-LAHIQ, [facility] [id number] [place] 00:00:00 00:00:00 CORRINE [address] 2019-03-27 2019-03-30 Outpatient BOAZ, [facility] 2100 [id number] [place] 00:00:00 00:00:00 SARAI Yeh [facility] Results Test Description Test Time Test Comments Results Result Comments Source POC-Glucose meter 2022-01-18 12:22:13 Test Item Value Reference Range Interpretation Comme nts POC-Glucose Meter (test code = 102 mg/dL 70-110 : TESTED AT [facility] [address] [place] [address] 1538) [place] [address]: Lead Fire Protection Engineer/Techni faviola ID = [id number] for Yelling, [place] a Lab Interpretation (test code = Normal 24989-1) [facility] [id number] 12:22:13 Test Item Value Reference Range Interpretation Comments POC-Glucose Meter (test 102 mg/dL 70-110 : TE STED AT [facility] code = 1538) [address] [place] [address]: Lead Fire Protection Engineer/Techni faviola ID = [id number] for Yelling, [place] a Lab Interpretation (test Normal code = 97023-1) [facility] [id number] 12:22:13 Test Item Value Reference Range Interpretation Comments POC-Glucose Meter (test 102 mg/dL 70-110 : TE STED AT [facility] code = 1538) [address] [place] [address]: Lead Fire Protection Engineer/Techni faviola ID = [id number] for Yelling, [place] a Lab Interpretation (test Normal code = 05218-3) [facility] [id number] 12:22:13 Test Item Value Reference Range Interpretation Comments POC-Glucose Meter (test 102 mg/dL 70-110 : TE STED AT [facility] code = 1538) [address] [place] [address]: Lead Fire Protection Engineer/Techni faviola ID = [id number] for Yelling, [place] a Lab Interpretation (test Normal code = 46036-2) [facility] [id number] 12:22:13 Test Item Value Reference Range Interpretation Comments POC-Glucose Meter (test 102 mg/dL 70-110 : [facility] code = 1538) [address] [place] [address]: Lead Fire Protection Engineer/Techni faviola ID = [id number] for Yelling, [place] a Lab Interpretation (test Normal code = 43781-5) [facility]-Glucose [id number] 12:22:13 Test Item Value Reference Range Interpretation Comments POC-Glucose Meter (test 102 mg/dL 70-110 : TE STED AT [facility] code = 1538) [address] [place] [address]: Lead Fire Protection Engineer/Techni faviola ID = [id number] for Yelling, [place] a Lab Interpretation (test Normal code = 42300-2) [facility]-Glucose [id number] 12:22:13 Test Item Value Reference Range Interpretation Comments POC-Glucose Meter (test 102 mg/dL 70-110 : TE STED AT [facility] code = 1538) [address] [place] [address]: Lead Fire Protection Engineer/Techni faviola ID = [id number] for Yelling, [place] a Lab Interpretation (test Normal code = 94015-1) [facility]-Glucose [id number] 12:22:13 Test Item Value Reference Range Interpretation Comments POC-Glucose Meter (test 102 mg/dL 70-110 : TE STED AT [facility] code = 1538) [address] [place] [address]: Lead Fire Protection Engineer/Techni faviola ID = [id number] for Yelling, [place] a Lab Interpretation (test Normal code = 82199-7) [facility]-GLUCOSE [id number] 12:22:13 Test Item Value Reference Range Interpretation Comments POC-GLUCOSE METER 102 mg/dL 70-110 : TESTED A T [facility] 1317 (BEAKER) (test code [facility], = 1538) [place] [address]: Lead Fire Protection Engineer/Techni faviola ID = [id number] for [place] ing, Zuri BASIC METABOLIC [id number] 06:40:34 Test Item Value Reference Range Interpretation [...] not appl icable for dialysis patien ts Lead Fire Protection Engineer ID - [id number] ID - [id number] ID - EECHZITCG925Cfbltvzn ID - UATIBXVXE348Ghgjauvb ID - ORJWUMISA905Nfsfgjtt ID - XRJDDRCHM899Sihaqrrs ID - FWWYDZUIC641Yiausyxp ID - JMJJRLEGD841Zshuqudv ID - ENTLODUZY465Fzlpemdh ID - WCWFIGXBG179Atymhhcf ID - NCQPKXDDN615Cndvojxq ID - HVIDUNBMJ317Dhafzhhf ID - CTBQZXFCI113CPFY-FBUWGVC [id number] 19:58:07 Test Item Value Reference Range Interpretation Comments POC-GLUCOSE METER 126 mg/dL 70-110 H : TESTED A T [facility] [address]17 (BEAKER) (test code [address], = 1538) [facility] 77 478: Lead Fire Protection Engineer/Techni faviola ID = [id number] for Will Ina lewis POCT-GLUCOSE [id number] 17:18:36 Test Item Value Reference Range Interpretation Comments POC-GLUCOSE METER 128 mg/dL 70-110 H : Notified RN/MD: [facility] (test code AT [facility] [address] = 1538) [facility] [address]: Lead Fire Protection Engineer/Techni faviola ID = [id number] for Marianok er, Mattitaben POCT-GLUCOSE [id number] 12:27:16 Test Item Value Reference Range Interpretation Comments POC-GLUCOSE METER 141 mg/dL 70-110 H : TESTED A T [facility] 1317 ([facility] (test code AN I NT [facility], = 1538) [place] 497098: Lead Fire Protection Engineer/Techni faviola ID = [id number] for Thak er, Mattitaben POCT-GLUCOSE [id number] 08:42:44 Test Item Value Reference Range Interpretation Comments POC-GLUCOSE METER 152 mg/dL 70-110 H : Notified RN/MD: TESTED ([facility]) (test code AT [facility] [address] = 1538) [facility] [address]: Lead Fire Protection Engineer/Techni faviola ID = [id number] for Maninder figueroa, Chen[place]en BASIC METABOLIC [id number] 05:53:56 Test Item Value Reference Range Interpretation [...] not appl icable for dialysis patien ts Lead Fire Protection Engineer ID - [id number] ID - MPDIKLJLG234Csquikmr ID - AOTMPGMLH562Nepmkurm ID - AGFIUKWQD859Wsazzsag ID - NQGTCNXNI246Agtagvgf ID - EJONHGCHP965Wjudhwug ID - FZUUOLFNK899Zqpzdltm ID - WSWNOYMWR534Unywzyrh ID - URDLRLYTJ142Sbwmphgk ID - JSJJEJTAM496Iozzgdtu ID - QWRILWLKR866Dpsuflrn ID - BKSBUDKTP166Iraheizz ID - MZFXGHWOA726LKCW-QZVCJUF [id number] 20:28:58 Test Item Value Reference Range Interpretation Comments POC-GLUCOSE METER 184 mg/dL 70-110 H : TESTED A T [facility] 1317 (BEAKER) (test code [facility], = 1538) [place] 497098: Lead Fire Protection Engineer/Techni faviola ID = [id number] for Ina Agrawal POCT-GLUCOSE [id number] 15:57:54 Test Item Value Reference Range Interpretation Comments POC-GLUCOSE METER 187 mg/dL 70-110 H : TESTED A T [facility] [address] (BEAKER) (test [facility], = 1538) [place] 497098: Lead Fire Protection Engineer/Techni faviola ID = [id number] for Ej vergara, Aileen POCT-GLUCOSE [id number] 11:57:54 Test Item Value Reference Range Interpretation Comments POC-GLUCOSE METER 163 mg/dL 70-110 H : TESTED A T [facility] [address] (BEAKER) (test code [address], = 1538) [place] 497098: Lead Fire Protection Engineer/Techni faviola ID = [id number] for Ej vergara, Aileen POCT-GLUCOSE [id number] 07:59:00 Test Item Value Reference Range Interpretation Comments POC-GLUCOSE METER 129 mg/dL 70-110 H : TESTED A T [facility] [address]17 (BEAKER) (test code [facility] [address] [place], = 1538) [place] [address] 478: Lead Fire Protection Engineer/Techni faviola ID = [id number] for Aileen Loja POCT-GLUCOSE [id number] 20:24:24 Test Item Value Reference Range Interpretation Comments POC-GLUCOSE METER 185 mg/dL 70-110 H : TESTED A T [facility] [address]17 (BEAKER) (test code [facility] [address] [place], = 1538) [place] 497098: Lead Fire Protection Engineer/Techni faviola ID = [id number] for Agustin Patel POCT-GLUCOSE [id number] 18:05:34 Test Item Value Reference Range Interpretation Comments POC-GLUCOSE METER 126 mg/dL 70-110 H : TESTED A T [facility] [address] (BEAKER) (test code [facility] [address], = 1538) [place] 497098: Lead Fire Protection Engineer/Techni faviola ID = [id number] for Consuelo Leija POCT-GLUCOSE [id number] 12:43:19 Test Item Value Reference Range Interpretation Comments POC-GLUCOSE METER 154 mg/dL 70-110 H : TESTED A T [facility] 1317 (BEAKER) (test code [facility] NT [facility], = 1538) [place] 497098: Lead Fire Protection Engineer/Techni faviola ID = [id number] for Consuelo Leija POCT-GLUCOSE [id number] 07:44:17 Test Item Value Reference Range Interpretation Comments POC-GLUCOSE METER 142 mg/dL 70-110 H : TESTED A T [facility] [address] (BEAKER) ([facility] [address] [facility], = 1538) [place] 497098: Lead Fire Protection Engineer/Techni faviola ID = [id number] for Consuelo Leija BASIC METABOLIC [id number] 05:55:22 Test Item Value Reference Range Interpretation [...] not appl icable for dialysis patien ts Lead Fire Protection Engineer ID - LITOOperator ID - LITOOperator ID - LITOOperator ID - LITOOperator ID - LITOOperator ID - LITOOperator ID - LITOOperator ID - LITOOperator ID - LITOOperator ID - LITOOperator ID - LITOOperator ID - LITOOperator ID - MARTÍN POCT-GLUCOSE [id number] 20:53:58 Test Item Value Reference Range Interpretation Comments POC-GLUCOSE METER 194 mg/dL 70-110 H : TESTED A T [facility] [address] (BEAKER) (test code [address], = 1538) [place] [id number]: Lead Fire Protection Engineer/Techni faviola ID = [id number] for Aileen Loja POCT-GLUCOSE [id number] 15:49:19 Test Item Value Reference Range Interpretation Comments POC-GLUCOSE METER 171 mg/dL 70-110 H : TESTED A T [facility] [address] (BEAKER) (test code [address], = 1538) [place] [id number]: Lead Fire Protection Engineer/Techni faviola ID = [id number] for Aileen Loja SARS-CoV2/RT-PCR (Asymptomatic ONLY)2022-01-14 15:42:35 Test Item Value Reference Interpretation Comments Range SARS-COV2/RT-PCR Negative Negative The SARS-Co V-2 (test code = target nucleic 26845-0) acids are not detected in thi s [...] revoked sooner. Fact Sheet for Healthcare Providers: https://www.[employer]/Documents/Xp ert%20Xpress%20SAR S%20CoV-2/Fact%20S heets/302-3802%20S ARS-COV-2%20HEALTH CARE%20PROVIDERS%2 0FACT%20SHEET.pdf Fact Sheet for Healthcare Patients: https://www.[employer]/Documents/Xp ert%20Xpress%20SAR S%20CoV-2/Fact%20S heets/302-3801%20S ARS-COV-2%20PATIEN T%20FACT%20SHEET.p df Lab Interpretation Normal (test code = 19094-3) [facility]14 15:42:35 Test Item Value Reference Interpretation Comments Range SARS-COV2/RT-PCR Negative Negative The SARS-Co V-2 (test code = target nucleic 49066-4) acids are not detected in thi s [...] revoked sooner. Fact Sheet for Healthcare Providers: https://www.[employer]/Documents/Xp ert%20Xpress%20SAR S%20CoV-2/Fact%20S heets/302-3802%20S ARS-COV-2%20HEALTH CARE%20PROVIDERS%2 0FACT%20SHEET.pdf Fact Sheet for Healthcare Patients: https://www.[employer]/Documents/Xp ert%20Xpress%20SAR S%20CoV-2/Fact%20S heets/302-3801%20S ARS-COV-2%20PATIEN T%20FACT%20SHEET.p df Lab Interpretation Normal (test code = 72190-1) [facility]2022-01-14 15:42:35 Test Item Value Reference Interpretation Comments Range SARS-COV2/RT-PCR Negative Negative The SARS-Co V-2 (test code = target nucleic 64369-7) acids are not detected in thi s [...] revoked sooner. Fact Sheet for Healthcare Providers: https://www.[employer]/Documents/Xp ert%20Xpress%20SAR S%20CoV-2/Fact%20S heets/302-3802%20S ARS-COV-2%20HEALTH CARE%20PROVIDERS%2 0FACT%20SHEET.pdf Fact Sheet for Healthcare Patients: https://www.[employer]/Documents/Xp ert%20Xpress%20SAR S%20CoV-2/Fact%20S heets/302-3801%20S ARS-COV-2%20PATIEN T%20FACT%20SHEET.p df Lab Interpretation Normal (test code = 65313-8) [facility]2022-01-14 15:42:35 Test Item Value Reference Interpretation Comments Range SARS-COV2/RT-PCR Negative Negative The SARS-Co V-2 (test code = target nucleic 58383-3) acids are not detected in thi s [...] revoked sooner. Fact Sheet for Healthcare Providers: https://www.[employer]/Documents/Xp ert%20Xpress%20SAR S%20CoV-2/Fact%20S heets/302-3802%20S ARS-COV-2%20HEALTH CARE%20PROVIDERS%2 0FACT%20SHEET.pdf Fact Sheet for Healthcare Patients: https://www.[employer]/Documents/Xp ert%20Xpress%20SAR S%20CoV-2/Fact%20S heets/302-3801%20S ARS-COV-2%20PATIEN T%20FACT%20SHEET.p df Lab Interpretation Normal (test code = 07136-3) [facility]14 15:42:35 Test Item Value Reference Interpretation Comments Range SARS-COV2/RT-PCR Negative Negative The SARS-Co V-2 (test code = target nucleic 13522-5) acids are not detected in thi s [...] revoked sooner. Fact Sheet for Healthcare Providers: https://www.[employer]/Documents/Xp ert%20Xpress%20SAR S%20CoV-2/Fact%20S heets/302-3802%20S ARS-COV-2%20HEALTH CARE%20PROVIDERS%2 0FACT%20SHEET.pdf Fact Sheet for Healthcare Patients: https://www.[employer]/Documents/Xp ert%20Xpress%20SAR S%20CoV-2/Fact%20S heets/302-3801%20S ARS-COV-2%20PATIEN T%20FACT%20SHEET.p df Lab Interpretation Normal (test code = 44078-1) [facility]2022-01-14 15:42:35 Test Item Value Reference Interpretation Comments Range SARS-COV2/RT-PCR Negative Negative The SARS-Co V-2 (test code = target nucleic 40097-4) acids are not detected in thi s [...] om SARS-CoV-2 in a [facility]oph[facility] s suspected of COVID-19 by [...] revoked sooner. Fact Sheet for Healthcare Providers: https://www.[employer]/Documents/Xp ert%20Xpress%20SAR S%20CoV-2/Fact%20S heets/302-3802%20S ARS-COV-2%20HEALTH CARE%20PROVIDERS%2 0FACT%20SHEET.pdf Fact Sheet for Healthcare Patients: https://wwwDis[employer]/Documents/Xp ert%20Xpress%20SAR S%20CoV-2/Fact%20S heets/302-3801%20S ARS-COV-2%20PATIEN T%20FACT%20SHEET.p df Lab Interpretation Normal (test code = 82956-0) [facility]2022-01-14 15:42:35 Test Item Value Reference Interpretation Comments Range SARS-COV2/RT-PCR Negative Negative The SARS-Co V-2 (test code = target nucleic 86014-7) acids are not detected in thi s [...] revoked sooner. Fact Sheet for Healthcare Providers: https://www.[employer]/Documents/Xp ert%20Xpress%20SAR S%20CoV-2/Fact%20S heets/302-3802%20S ARS-COV-2%20HEALTH CARE%20PROVIDERS%2 0FACT%20SHEET.pdf Fact Sheet for Healthcare Patients: https://www.[employer]/Documents/Xp ert%20Xpress%20SAR S%20CoV-2/Fact%20S heets/302-3801%20S ARS-COV-2%20PATIEN T%20FACT%20SHEET.p df Lab Interpretation Normal (test code = 44885-1) [facility]2022-01-14 15:42:35 Test Item Value Reference Interpretation Comments Range SARS-COV2/RT-PCR Negative Negative The SARS-Co V-2 (test code = target nucleic 43072-8) acids are not detected in thi s [...] revoked sooner. Fact Sheet for Healthcare Providers: https://www.[employer]/Documents/Xp ert%20Xpress%20SAR S%20CoV-2/Fact%20S heets/302-3802%20S ARS-COV-2%20HEALTH CARE%20PROVIDERS%2 0FACT%20SHEET.pdf Fact Sheet for Healthcare Patients: https://wwwDis[employer]/Documents/Xp ert%20Xpress%20SAR S%20CoV-2/Fact%20S heets/302-3801%20S ARS-COV-2%20PATIEN T%20FACT%20SHEET.p df Lab Interpretation Normal (test code = 09133-6) [facility])2022-01-14 15:42:35 Test Item Value Reference Range Interpretation Comments SARS-COV2/RT-PCR Negative Negative The SARS-Co V-2 target (test code = nucleic acids a re not 2826509) detected in thi s specimen. Negative result [...] revoked sooner. Fact Sheet for Healthcare Providers: https://www.[employer]/Documents/Xpert%20Xpress%20SARS%20CoV-2/Fact%20Sheets/302-3802%26MERZ-LYP-7%20 HEALTHCARE%20PROVIDERS%20FACT%20SHEET.pdf Fact Sheet for Healthcare Patients: https://www.[employer]/Documents/Xpert%20Xp ress%20SARS%20CoV-2/Fact%20Sheets/302-3801%22FDWO-YQD-4%20PATIENT%20FACT%20SHEET .pdfRAD, CHEST, 1 VIEW, NON [id number] 15:02:00Reason for exam:- >SOBShould this be performed at the bedside?->Yes [facility] 1950 Sex: FFINAL REPORT [...] MDReport Verified Date/Time: 01/14/2022 15:02:16 Reading Location: [facility] Radiology Reading Room POCT-GLUCOSE [id number] 12:14:41 Test Item Value Reference Range Interpretation Comments POC-GLUCOSE METER 134 mg/dL 70-110 H : TESTED A T [facility] 1317 (BETG) (test code [address], = 15[address]) [facility] [address] 478: Lead Fire Protection Engineer/Techni faviola ID = [id number] for Aileen Loja ANG, CENTRAL VENOUS CATH PLCMT (JUG/FEM) > 5 Y.O. WITH [id number] 11:25:00Reason for exam:->Non tunneled central line placement [facility] 1950 Sex: FFINAL REPORT [...] Linkeport Verified Date/Time: 01/14/2022 11:25:42 Reading Location: [facility] Radiology Reading Room POCT-GLUCOSE [id number] 08:34:59 Test Item Value Reference Range Interpretation Comments POC-GLUCOSE METER 147 mg/dL 70-110 H : TESTED A T [facility] 13[address] (BEAKER) (test code [address], = 1538) [facility] 77 478: Lead Fire Protection Engineer/Techni faviola ID = [id number] for Aileen Loja BASIC METABOLIC [id number] 06:37:03 Test Item Value Reference Range Interpretation [...] not appl icable for dialysis patien ts Lead Fire Protection Engineer ID - LITOOperator ID - LITOOperator ID [...] 0-0 (BEAKER) (test code = 413) POCT-GLUCOSE [id number] 19:50:36 Test Item Value Reference Range Interpretation Comments POC-GLUCOSE METER 199 mg/dL 70-110 H : TESTED A T [facility] [address] (BEAKER) (test code [facility] [address], = 1538) [facility] 77 478: Lead Fire Protection Engineer/Techni faviola ID = [id number] for Ina Agrawal POCT-GLUCOSE [id number] 16:52:12 Test Item Value Reference Range Interpretation Comments POC-GLUCOSE METER 150 mg/dL 70-110 H : TESTED A T [facility] [address] (BEAKER) (test code [address], = 1538) [facility] 77 478: Lead Fire Protection Engineer/Techni faviola ID = [id number] for Aileen Loja POCT-GLUCOSE [id number] 14:05:10 Test Item Value Reference Range Interpretation Comments POC-GLUCOSE METER 122 mg/dL 70-110 H : TESTED A T [facility] [address] (BEAKER) (test code [address], = 1538) [place] [address]: Lead Fire Protection Engineer/Techni faviola ID = [id number] for Nancy Douglass Blood gas, [id number] 09:06:33 Test Item Value Reference Range Interpretation Comments pH, Arterial (test code 7.45 7.35-7.45 = 2744-1) pCO2, Arterial (test 40 See_Comment [Autom ated message] code = 2019-8) The system [employer] generated this result transmit kenneth reference range : 35 - 45 mm Hg. The reference range was not used to interpret this result as normal/abnormal . pO2, Arterial (test 79 See_Comment L [Automa kenneth message] code = 2703-7) The system [employer] generated this result transmit kenneth reference range [...] 21 Lab Interpretation Abnormal (test code = 86658-6) [facility] [id number] 09:06:33 Test Item Value Reference Range Interpretation Comments pH, Arterial (test code 7.45 7.35-7.45 = 2744-1) pCO2, Arterial (test 40 See_Comment [Autom ated message] code = 2019-8) The system [employer] generated this result transmit kenneth reference range : 35 - 45 mm Hg. The reference range was not used to interpret this result as normal/abnormal . pO2, Arterial (test 79 See_Comment L [Automa kenneth message] code = 2703-7) The system [employer] generated this result transmit kenneth reference range [...] 21 Lab Interpretation Abnormal (test code = 25391-7) [facility] [id number] 09:06:33 Test Item Value Reference Range Interpretation Comments pH, Arterial (test code 7.45 7.35-7.45 = 2744-1) pCO2, Arterial (test 40 See_Comment [Autom ated message] code = 2019-8) The system [employer] generated this result transmit kenneth reference range : 35 - 45 mm Hg. The reference range was not used to interpret this result as normal/abnormal . pO2, Arterial (test 79 See_Comment L [Automa kenneth message] code = 2703-7) The system [employer] generated this result transmit kenneth reference range [...] 21 Lab Interpretation Abnormal (test code = 31684-7) [facility] [id number] 09:06:33 Test Item Value Reference Range Interpretation Comments pH, Arterial (test code 7.45 7.35-7.45 = 2744-1) pCO2, Arterial (test 40 See_Comment [Autom ated message] code = 2019-8) The system [employer] generated this result transmit kenneth reference range : 35 - 45 mm Hg. The reference range was not used to interpret this result as normal/abnormal . pO2, Arterial (test 79 See_Comment L [Automa kenneth message] code = 2703-7) The system [employer] generated this result transmit kenneth reference range [...] 21 Lab Interpretation Abnormal (test code = 09215-9) [facility] [id number] 09:06:33 Test Item Value Reference Range Interpretation Comments pH, Arterial (test code 7.45 7.35-7.45 = 2744-1) pCO2, Arterial (test 40 See_Comment [Autom ated message] code = 2019-) The system [employer] generated this result transmit kenneth reference range : 35 - 45 mm Hg. The reference range was not used to interpret this result as normal/abnormal . pO2, Arterial (test 79 See_Comment L [Automa kenneth message] code = 2703-7) The system [employer] generated this result transmit kenneth reference range [...] 21 Lab Interpretation Abnormal (test code = 63683-1) [facility] [id number] 09:06:33 Test Item Value Reference Range Interpretation Comments pH, Arterial (test code 7.45 7.35-7.45 = 2744-1) pCO2, Arterial (test 40 See_Comment [Autom ated message] code = 2019-8) The system [employer] generated this result transmit kenneth reference range : 35 - 45 mm Hg. The reference range was not used to interpret this result as normal/abnormal . pO2, Arterial (test 79 See_Comment L [Automa kenneth message] code = 2703-7) The system [employer] generated this result transmit kenneth reference range [...] 21 Lab Interpretation Abnormal (test code = 46642-8) [facility] gas, [id number] 09:06:33 Test Item Value Reference Range Interpretation Comments pH, Arterial (test code 7.45 7.35-7.45 = 2744-1) pCO2, Arterial (test 40 See_Comment [Autom ated message] code = 2019-8) The system [employer] generated this result transmit kenneth reference range : 35 - 45 mm Hg. The reference range was not used to interpret this result as normal/abnormal . pO2, Arterial (test 79 See_Comment L [Automa kenneth message] code = 2703-7) The system [employer] generated this result transmit kenneth reference range [...] 21 Lab Interpretation Abnormal (test code = 33106-4) [facility] [id number] 09:06:33 Test Item Value Reference Range Interpretation Comments pH, Arterial (test code 7.45 7.35-7.45 = 2744-1) pCO2, Arterial (test 40 See_Comment [Autom ated message] code = 2019-8) The system [facility] generated this result transmit kenneth reference range : 35 - 45 mm Hg. The reference range was not used to interpret this result as normal/abnormal . pO2, Arterial (test 79 See_Comment L [Automa kenneth message] code = 2703-7) The system [facility] generated this result transmit kenneth reference [...] = 8310-5) FIO2 (test code = 1819) 21.0 Lab Interpretation Abnormal (test code = 24507-2) [facility] GAS, [id number] 09:06:33 Test Item Value Reference Range Interpretation [...] (BEAKER) (test code = 1819) 21.0 POCT-GLUCOSE [id number] 08:36:44 Test Item Value Reference Range Interpretation Comments POC-GLUCOSE METER 132 mg/dL 70-110 H : TESTED A T [facility] [address] (BEAKER) (test code [address], = 1538) [facility] [place] [address]: Lead Fire Protection Engineer/Techni faviola ID = [id number] for Aileen Loja TSH/FREE T4 IF [id number] 08:14:31 Test Item Value Reference Range Interpretation Comments THYROID STIMULATING HORMONE 1.790 uIU/mL 0.350-5.500 (BEAKER) (test code = 772) Lead Fire Protection Engineer ID - DSENSONCOMPREHENSIVE METABOLIC [id number] 08:04:08 Test Item Value Reference Range Interpretation [...] not appl icable for dialysis patien ts Lead Fire Protection Engineer ID - DSENSONOperator ID - DSENSONOperator ID - DSENSONOperator ID - DSENSONOperator ID - DSENSONOperator ID - DSENSONOperator ID - DSENSONOperator ID - DSENSONOperator ID - DSENSONOperator ID - DSENSONOperator ID - DSENSONOperator ID - DSENSONOperator ID - DSENSONOperator ID - DSENSONOperatorID - DSENSONOperator ID - DSENSONOperator ID - DSENSONOperator ID - DSENSONOperator ID - DSENSONTROPONIN [id number] 08:03:10 Test Item Value Reference Range Interpretation [...] failure, acidosis, acute neurological disease, and persistent tachyarrhythmia.Lead Fire Protection Engineer ID - DSENSONCT, BRAIN, WITHOUT [id number] 07:49:00 [facility] 1950 Sex: [...] for further characterization. Signed: Suzi Askew MDRepmercy hospital [facility] Verified Date/Time: 01/13/2022 07:49:20 CBC W/PLT COUNT & AUTO [id number] 07:39:37 Test Item Value Reference Range Interpretation [...] PERCENT (BEAKER) (test code = 2801) POCT-GLUCOSE [id number] 07:15:45 Test Item Value Reference Range Interpretation Comments POC-GLUCOSE METER 127 mg/dL 70-110 H : TESTED A T [facility] [address] (BEAKER) (test code [address] [facility], = 1538) [place] [id number]: Lead Fire Protection Engineer/Techni favioal ID = [id number] for Aileen Loja POCT-GLUCOSE [id number] 06:32:48 Test Item Value Reference Range Interpretation Comments POC-GLUCOSE METER 133 mg/dL 70-110 H : TESTED A T [facility] [address] (BEAKER) ([facility] = 1538) [place] [id number]: Lead Fire Protection Engineer/Techni faviola ID = [id number] for Libia Pop POCT-GLUCOSE [id number] 21:05:05 Test Item Value Reference Range Interpretation Comments POC-GLUCOSE METER 195 mg/dL 70-110 H : TESTED A T [facility] [address] (BEAKER) (test code [address], = 1538) [place] [address]: Lead Fire Protection Engineer/Techni faviola ID = [id number] for Libia Pop POCT-GLUCOSE [id number] 19:32:35 Test Item Value Reference Range Interpretation Comments POC-GLUCOSE METER 180 mg/dL 70-110 H : TESTED A T [facility] [address] (BEAKER) (test code [address], = 1538) [place] [address]: Lead Fire Protection Engineer/Techni faviola ID = [id number] for [place] ins, Odalys POCT-GLUCOSE [id number] 19:30:16 Test Item Value Reference Range Interpretation Comments POC-GLUCOSE METER 50 mg/dL 70-110 L : TESTED A T [facility] [address] (BEAKER) (test code = [address], 1538) [place] [address]: Lead Fire Protection Engineer/Techni faviola ID = [id number] for [place] ins, Odalys POCT-GLUCOSE [id number] 18:09:32 Test Item Value Reference Range Interpretation Comments POC-GLUCOSE METER 63 mg/dL 70-110 L : TESTED A T [facility] [address] (BEAKER) (test code = [address], 1538) [place] [address]: Lead Fire Protection Engineer/Techni faviola ID = [id number] for Will ia, Robe ANG, TUNNELED CATHETER [id number] 17:04:00Reason for exam:->dialysis catheter with poor flows on dialysis, very positional - please place tunneled dialysis catheter in a new position. [facility] : 1950 Sex: FFINAL REPORT Tunneled dialysis catheter exchange, 01/12/2022. History: Renal failure, poor flow through the existing catheter. Modality: Sonography and fluoroscopy. Sedation: None. Critical Care Unit Nurse: Mitzy. Afternoon Babysitter: None. Approach: Internal jugular vein - right. Estimated blood loss: <1 cc. Specimen: None. Fluoroscopy Time: 0.5 min. Dose (Ka,r): 4 mGy. Technique: Informed written c onsent was obtained. Discussion of risks, benefits, and alternatives were made with the patient. Thepatient expressed understanding and agreed to proceed. All [...] removed and a new 23 cm 15.5 [place]uran Duraflow 2 catheter was advanced through the tunnel into the vessel,into the catheter tip was in the inferior [...] dialysis catheter using fluoroscopic guidance. Signed: Nick Dockeryepyong Verified Date/Time: 01/12/2022 17:04:33 Reading Location: [facility] Reading Room POCT-GLUCOSE METER 2022-01-12 12:20:13 Test Item Value Reference Range Interpretation Comments POC-GLUCOSE METER 107 mg/dL 70-110 : TESTED A T [facility] [address] (BEAKER) (test code [address], = 1538) [place] [address]: Lead Fire Protection Engineer/Techni faviola ID = [id number] for Will Robe lewis POCT-GLUCOSE [id number] 09:01:23 Test Item Value Reference Range Interpretation Comments POC-GLUCOSE METER 118 mg/dL 70-110 H : TESTED A T [facility] [address] (BEAKER) (test code [address], = 1538) [place] [address]: Lead Fire Protection Engineer/Techni faviola ID = [id number] for Will Robe lewis CBC W/PLT COUNT & AUTO [id number] 06:58:41 Test Item Value Reference Range Interpretation [...] code = 1+ few 961) BASIC METABOLIC [id number] 06:30:57 Test Item Value Reference Range Interpretation [...] not appl icable for dialysis patien ts Lead Fire Protection Engineer ID - LITOOperator ID - LITOOperator ID - LITOOperator ID - LITOOperator ID - LITOOperator ID - LITOOperator ID - LITOOperator ID - LITOOperator ID - LITOOperator ID - [id number] 06:19:11 Test Item Value Reference Range Interpretation Comments MAGNESIUM (BEAKER) (test code = 1.9 mg/dL 1.5-3.0 627) Lead Fire Protection Engineer ID - LITOOperator ID - LITOOperator ID - LITOOperator ID - MARTÍN [id number] 06:16:11 Test Item Value Reference Range Interpretation Comments PHOSPHORUS (BEAKER) (test code = 3.4 mg/dL 2.5-4.5 604) Lead Fire Protection Engineer ID - LITOPROTHROMBIN TIME/[id number] 06:03:04 Test Item Value Reference Range Interpretation Comments PROTIME (BEAKER) 12.4 seconds 9.3-12.0 H Final Infor mation (test code = 759) (Auto Outp ut) INR (BEAKER) (test 1.14 See_Comment Final Inf ormation code = 370) (Auto Output) [Automated mess age] The system [employer] generated this result transmitted ref erence range: <=5.90. The reference range was not used to int erpret this result as normal/abnormal . RECOMMENDED COUMADIN/WARFARIN INR THERAPY RANGESSTANDARD DOSE: 2.0 - 3.0 Includes: PROPHYLAXIS for venous thrombosis, systemic embolization; TREATMENT for venous thrombosis and/or pulmonary embolus.HIGH RISK: Target INR is 2.5-3.5 for patients with mechanical heart valves.[id number] 06:03:04 Test Item Value Reference Range Interpretation Comments PARTIAL THROMBOPLASTIN 29.5 seconds 23.0-35.0 Final Information TIME (BEAKER) (test (Auto Ou tput) code = 760) POCT-GLUCOSE [id number] 20:00:47 Test Item Value Reference Range Interpretation Comments POC-GLUCOSE METER 172 mg/dL 70-110 H : TESTED A T [facility] [address] (BEAKER) (test code [address], = 1538) [place] [id number]: Lead Fire Protection Engineer/Techni faviola ID = [id number] for Will iaZen alvarengacas POCT-GLUCOSE [id number] 18:09:30 Test Item Value Reference Range Interpretation Comments POC-GLUCOSE METER 121 mg/dL 70-110 H : TESTED A T [facility] [address] (BEAKER) (test code [address], = 1538) [place] [address]: Lead Fire Protection Engineer/Techni faviola ID = [id number] for Will iams, Robe POCT-GLUCOSE [id number] 12:48:21 Test Item Value Reference Range Interpretation Comments POC-GLUCOSE METER 102 mg/dL 70-110 : TESTED A T [facility] [address] (BEAKER) (test code [address], = 1538) [place] [address]: Lead Fire Protection Engineer/Techni faviola ID = [id number] for AvelinoLuz Elena montaguea POCT-GLUCOSE [id number] 08:00:17 Test Item Value Reference Range Interpretation Comments POC-GLUCOSE METER 119 mg/dL 70-110 H : TESTED A T [facility] [address] (BEAKER) (test code [address], = 1538) [place] [address]: Lead Fire Protection Engineer/Techni faviola ID = [id number] for Will iams, Robe POCT-GLUCOSE [id number] 21:28:11 Test Item Value Reference Range Interpretation Comments POC-GLUCOSE METER 227 mg/dL 70-110 H : TESTED A T [facility] [address] (BEAKER) (test code [address], = 1538) [place] [address]: Lead Fire Protection Engineer/Techni faviola ID = [id number] for Miryam Pope POCT-GLUCOSE [id number] 15:35:44 Test Item Value Reference Range Interpretation Comments POC-GLUCOSE METER 168 mg/dL 70-110 H : TESTED A T [facility] (BEAKER) (test code [address], = 1538) [facility] [address]: Lead Fire Protection Engineer/Techni faviola ID = [id number] for Maribel Jimenez REPL CVC/TUNNELED W/O [id number] 11:59:00 [facility] : 1950 Sex: FFINAL REPORT PROCEDURE: Tunneled central venous catheter exchange Procedural PersonnelAttending physician(s): Consuelo Ugarte physician(s): NoneResident physician(s): NoneAdvanmarion [facility] practice provider(s): None Pre-procedure diagnosis: Malfunctioning [...] a permanent image was stored. Catheter size (Honduran): 15.5Catheter flush: Heparin (100 units/mL) Abbie sureThe [...] MDReport Verified Date/Time: 01/10/2022 11:59:48 Reading Location: [facility] Radiology Reading Room POCT-GLUCOSE [id number] 11:32:33 Test Item Value Reference Range Interpretation Comments POC-GLUCOSE METER 105 mg/dL 70-110 : TESTED A T [facility] 1317 (BEAKER) (test code [address], = 1538) [facility] [address]: Lead Fire Protection Engineer/Techni faviola ID = [id number] for Anne jamshid Maribel BASIC METABOLIC [id number] 04:51:32 Test Item Value Reference Range Interpretation [...] not appl icable for dialysis patien ts Lead Fire Protection Engineer ID - LITOOperator ID - LITOOperator ID - LITOOperator ID - LITOOperator ID - LITOOperator ID - LITOOperator ID - LITOOperator ID - LITOOperator ID - LITOOperator ID - [id number] 04:50:58 Test Item Value Reference Range Interpretation Comments MAGNESIUM (BEAKER) (test code = 2.0 mg/dL 1.5-3.0 627) Lead Fire Protection Engineer ID - LITOOperator ID - LITOOperator ID - LITOOperator ID - MARTÍN [id number] 04:48:19 Test Item Value Reference Range Interpretation Comments PHOSPHORUS (BEAKER) (test code = 3.9 mg/dL 2.5-4.5 604) Lead Fire Protection Engineer ID - [id number] 04:44:00 Test Item Value Reference Range Interpretation Comments PARTIAL THROMBOPLASTIN 51.7 seconds 23.0-35.0 H Final Information TIME (BEAKER) (test (Auto Ou tput) code = 760) CBC W/PLT COUNT & AUTO [id number] 04:24:30 Test Item Value Reference Range Interpretation [...] PERCENT (BEAKER) (test code = 2801) POCT-GLUCOSE [id number] 21:26:47 Test Item Value Reference Range Interpretation Comments POC-GLUCOSE METER 127 mg/dL 70-110 H : TESTED A T SLSL 1317 (BEAKER) (test code [facility], = [facility]) [place] [address]: Lead Fire Protection Engineer/Techni faviola ID = [id number] for Libia Pop [id number] 20:08:11 Test Item Value Reference Range Interpretation Comments PARTIAL THROMBOPLASTIN 41.3 seconds 23.0-35.0 H Final Information TIME (BEAKER) (test (Auto Ou tput) code = 760) POCT-GLUCOSE [id number] 17:14:06 Test Item Value Reference Range Interpretation Comments POC-GLUCOSE METER 154 mg/dL 70-110 H : TESTED A T SLSL 1317 (BEAKER) (test code [facility], = 1538) [place] [id number]: Lead Fire Protection Engineer/Techni faviola ID = [id number] for Ej vergara Aileen POCT-GLUCOSE [id number] 11:55:38 Test Item Value Reference Range Interpretation Comments POC-GLUCOSE METER 153 mg/dL 70-110 H : TESTED A T SLSL 1317 (BEAKER) (test code [facility], = 1538) [place] [address]: Lead Fire Protection Engineer/Techni faviola ID = [id number] for Maribel Jimenez HEPATITIS B SURFACE [id number] 11:29:52 Test Item Value Reference Range Interpretation Comments HEPATITIS B SURFACE ANTIBODY 53.8 mIU/mL <8.0 H (BEAKER) (test code = 647) Lead Fire Protection Engineer ID - [id number] 10:04:36 Test Item Value Reference Range Interpretation Comments PARTIAL THROMBOPLASTIN 36.3 seconds 23.0-35.0 H Final Information TIME (BEAKER) (test (Auto Ou tput) code = 760) POCT-GLUCOSE [id number] 07:31:03 Test Item Value Reference Range Interpretation Comments POC-GLUCOSE METER 111 mg/dL 70-110 H : TESTED A T SLSL 1317 (BEAKER) (test code [address], = 1538) [facility] [address]: Lead Fire Protection Engineer/Techni faviola ID = [id number] for Maribel Jimenez [id number] 06:13:46 Test Item Value Reference Range Interpretation Comments MAGNESIUM (BEAKER) (test code = 1.8 mg/dL 1.5-3.0 627) Lead Fire Protection Engineer ID - [id number] ID - [id number] ID - [id number] ID - [id number] METABOLIC [id number] 06:12:49 Test Item Value Reference Range Interpretation [...] not appl icable for dialysis patien ts Lead Fire Protection Engineer ID - [id number] ID - [id number] ID - [id number] ID - [id number] ID - [id number] ID - OKUHVDXHF715Zmkeymec ID - [id number] ID - [id number] ID - [id number] ID - [id number] 06:10:51 Test Item Value Reference Range Interpretation Comments PHOSPHORUS (BEAKER) (test code = 3.0 mg/dL 2.5-4.5 604) Lead Fire Protection Engineer ID - [id number] W/PLT COUNT & AUTO [id number] 05:49:35 Test Item Value Reference Range Interpretation [...] PERCENT (BEAKER) (test code = 2801) POCT-GLUCOSE [id number] 05:17:03 Test Item Value Reference Range Interpretation Comments POC-GLUCOSE METER 108 mg/dL 70-110 : TESTED A T SLSL 1317 (BEAKER) (test code [facility] [address], = 1538) [place] [address]: Lead Fire Protection Engineer/Techni faviola ID = [id number] for esperanza Abraham [id number] 01:14:37 Test Item Value Reference Range Interpretation Comments PARTIAL THROMBOPLASTIN 37.5 seconds 23.0-35.0 H Final Information TIME (BEAKER) (test (Auto Ou tput) code = 760) HEPATITIS B SURFACE [id number] 18:36:43 Test Item Value Reference Range Interpretation Comments HEPATITIS B SURFACE ANTIGEN (2) Nonreactive Nonreactive (BEAKER) (test code = 2585) Lead Fire Protection Engineer ID - [id number] 17:00:29 Test Item Value Reference Range Interpretation Comments POC-GLUCOSE METER 131 mg/dL 70-110 H : TESTED A T SLSL 1317 (BEAKER) (test code [facility] [address], = 1538) [place] [address]: Lead Fire Protection Engineer/Techni faviola ID = [id number] for Bernie butt SherlyMigel [id number] 16:38:44 Test Item Value Reference Range Interpretation Comments PARTIAL THROMBOPLASTIN 42.5 seconds 23.0-35.0 H Final Information TIME (BEAKER) (test (Auto Ou tput) code = 760) POCT-GLUCOSE [id number] 12:29:39 Test Item Value Reference Range Interpretation Comments POC-GLUCOSE METER 168 mg/dL 70-110 H : TESTED A T SLSL 1317 (BEAKER) (test code [address], = 1538) [facility] 77 [address]: Lead Fire Protection Engineer/Techni faviola ID = [id number] for Migel Holt POCT-GLUCOSE [id number] 08:10:36 Test Item Value Reference Range Interpretation Comments POC-GLUCOSE METER 136 mg/dL 70-110 H : TESTED A T SLSL 1317 (BEAKER) (test code [address], = 1538) [facility] 77 [address]: Lead Fire Protection Engineer/Techni faviola ID = [id number] for Migel Holt BASIC METABOLIC [id number] 06:18:43 Test Item Value Reference Range Interpretation [...] not appl icable for dialysis patien ts Lead Fire Protection Engineer ID - LITOOperator ID - LITOOperator ID - LITOOperator ID - LITOOperator ID - LITOOperator ID - LITOOperator ID - LITOOperator ID - LITOOperator ID - LITOOperator ID - [id number] 06:17:29 Test Item Value Reference Range Interpretation Comments MAGNESIUM (BEAKER) (test code = 1.6 mg/dL 1.5-3.0 627) Lead Fire Protection Engineer ID - LITOOperator ID - LITOOperator ID - LITOOperator ID - MARTÍN HEMOGLOBIN [id number] 06:16:10 Test Item Value Reference Range Interpretation Comments HEMOGLOBIN A1C (BEAKER) (test code = 8.5 % 4.3-6.1 H 368) Lead Fire Protection Engineer ID - [id number] 06:14:08 Test Item Value Reference Range Interpretation Comments PHOSPHORUS (BEAKER) (test code = 5.0 mg/dL 2.5-4.5 H 604) Lead Fire Protection Engineer ID - [id number] 05:59:43 Test Item Value Reference Range Interpretation Comments PARTIAL THROMBOPLASTIN 45.4 seconds 23.0-35.0 H Final Information TIME (BEAKER) (test (Auto Ou tput) code = 760) CBC W/PLT COUNT & AUTO [id number] 05:48:29 Test Item Value Reference Range Interpretation [...] H PERCENT (BEAKER) (test code = 2801) [id number] 21:22:07 Test Item Value Reference Range Interpretation Comments PARTIAL THROMBOPLASTIN 26.5 seconds 23.0-35.0 Final Information TIME (BEAKER) (test (Auto Ou tput) code = 760) POCT-GLUCOSE [id number] 21:12:37 Test Item Value Reference Range Interpretation Comments POC-GLUCOSE METER 136 mg/dL 70-110 H : TESTED A T SLSL 1317 (BEAKER) (test code [address], = 1538) [facility] [address]: Lead Fire Protection Engineer/Techni faviola ID = [id number] for Amritakurtis lyles abelardofritz POC tvighph1118-85-53 16:00:00 Test Item Value Reference Range Interpretation Comments POC glucose (test code = 158 mg/dL 65-99 H Ope rator Name: [id number]) Bob tracyice ID: [id number] Lab Interpretation (test Abnormal code = 48059-7) [facility] [id number] 16:00:00 Test Item Value Reference Range Interpretation Comments POC glucose (test code = 158 mg/dL 65-99 H Ope rator Name: [id number]) Bob tracyice ID: [id number] Lab Interpretation (test Abnormal code = 66308-1) [facility] pathology [id number] 15:05:25 Test Item Value Reference Range Interpretation Comments Case number (test code = [id number]) Surgical pathology See link below for report (test code = PDF Lab Report 2255) Result status (test code This is Final Report = [id number]) for [id number] [facility] pathology [id number] 15:05:25 Test Item Value Reference Range Interpretation Comments Case number (test code = [id number]) Surgical pathology See link below for report (test code = PDF Lab Report 2255) Result status (test code This is Final Report = [id number]) for [id number] [place] [address] [id number] 12:23:18 Test Item Value Reference Range Interpretation [...] of 12-AUG-2021 06:02,-No significant change was found- [place] [address] [id number] 12:23:18 Test Item Value Reference Range Interpretation [...] [facility] ED Preliminary Interpretation - Not an [id number] 21:23:51 Test Item Value Reference Range Interpretation Comments VALERIANO (test code = VALERIANO) Marley Cronin NP-C 09/07/2021 9:[facility] Interpretation - Not an OrderPerformed by: Marley Cronin NP-CAuthorized by: Trinidad Menard MD ECG reviewed by ED Physician in the absence of a staffing rn: no Previous ECG: Previous ECG: UnavailableInterpretat ion: Interpretation: abnormal Rate: ECG rate: 80 ECG rate assessment: normal Rhythm: Rhythm: paced Pacing: Type of pacing: VentricularEctopy: Ectopy: none QRS: QRS axis: Normal QRS intervals: NormalConduction: Conduction: normal ST segments: ST segments: Normal Lab Interpretation Abnormal (test code = 48669-0) [facility] ED Preliminary Interpretation - Not an [id number] 21:23:51 Test Item Value Reference Range Interpretation Comments VALERIANO (test code = VALERIANO) Marley Cronin NP-C 09/07/2021 9:29 [facility] ED Preliminary Interpretation - Not an OrderPerformed by: Marley Cronin NP-CAuthorized by: Trinidad Menard MD ECG reviewed by ED Physician in the absence of a staffing rn: no Previous ECG: Previous ECG: UnavailableInterpretat ion: Interpretation: abnormal Rate: ECG rate: 80 ECG rate assessment: normal Rhythm: Rhythm: paced Pacing: Type of pacing: VentricularEctopy: Ectopy: none QRS: QRS axis: Normal QRS intervals: NormalConduction: Conduction: normal ST segments: ST segments: Normal Lab Interpretation Abnormal (test code = 48002-8) [facility] [Presence] in Respiratory specimen by LANG with probe [id number] 13:39:12 Test Item Value Reference Range Interpretation Comments SARS-CoV-2 (COVID-19) RNA Not detected [Presence] in Respiratory specimen by LANG with probe detection (test code = 59157-7) Whether patient is employed in a Unknown healthcare setting (test code = 06980-6) Whether the patient has symptoms Unknown related to condition of interest (test code = 05544-1) Whether the patient was Unknown hospitalized for condition of interest (test code = 03226-7) Whether the patient was admitted Unknown to intensive care unit (ICU) for condition of interest (test code = 71723-2) Whether patient resides in a Unknown congregate care setting (test code = 43009-5) status (test code = Unknown 28230-4) Date and time of symptom onset Unknown (test code = 68306-7) [facility] myocardial [id number] 02:36:07 Test Item Value Reference Range Interpretation Comments Target HR (test code 148.00 bpm = 7647102341) Resting HR (test 83 BPM code = 4872721163) Resting BP (test 178/79 mmHg code = 4165752556) Percent HR (test 54.05 % code = 9968313811) Post Peak HR (test 80 bpm code = 3000720485) Post Peak BP (test 161/77 mmHg code = 0570642498) Radiology Study observation (narrative) (test code = 58014-2) VALERIANO (test code = Study Quality: good. [...] left ventricle ejection fraction is mildly reduced. [facility] stress [id number] 22:06:40 Test Item Value Reference Range Interpretation Comments Resting BP (test code = 5955304855) Protocol Name (test LEXISCAN code = 6934850282) Time in Exercise 00:01:00 Phase (test code = 8793258212) Max Systolic BP (test code = 9484100567) Max Diastolic BP (test code = 4618033448) Max Heart Rate (test code = 9888323019) Max Predicted Heart Rate (test code = 1726777510) Test Indication (test code = 2049080655) Arrhy During Ex (test code = 1647108491) ECG Interp Before EX (test code = 2903259242) ECG Interp During Ex (test code = 5969698106) Ex Summary Comment (test code = 3441060126) Overall HR Response to Exercise (test code = 6843173289) Overall BP Response To Exercise (test code = 4795240029) Reason for Termination (test code = 1996428381) Stress Test Waveform interpreted in Impression (test code report associated with = 3127405896) image study. No interpretation is provided as part of this Stress ECG report.-Electronically Signed By Caron Medina MD ([id number]), development editor Daysi Chapman ([id number]) on 08/02/2021 5:06:37 PM [facility] stress [id number] 22:06:40 Test Item Value Reference Range Interpretation Comments Resting BP (test code = 6507656688) Protocol Name (test LEXISCAN code = 9495093731) Time in Exercise 00:01:00 Phase (test code = 5308115342) Max Systolic BP (test 178 code = 5657006828) Max Diastolic BP 79 (test code = 9931371753) Max Heart Rate (test 81 code = 8130694019) Max Predicted Heart 148 Rate (test code = 1231406430) Test Indication (test code = 7249328610) Arrhy During Ex (test code = 3483292756) ECG Interp Before EX (test code = 9800475167) ECG Interp During Ex (test code = 0675729734) Ex Summary Comment (test code = 7998246007) Overall HR Response to Exercise (test code = 7244673223) Overall BP Response To Exercise (test code = 6102736568) Reason for Termination (test code = 1782880198) Stress Test Waveform interpreted in Impression (test code report associated with = 3699739405) image study. No interpretation is provided as part of this Stress ECG report.-Electronically Signed By Adam HOLLIDAY, [facility] ([id number]), development editor Daysi Chapman ([id number]) on 08/02/2021 5:06:37 PM [facility], (w Contrast, Strain and 3D if needed)2021-08-01 17:44:46 Test Item Value Reference Range Interpretation Comments AoV Area, Vmax (test 2.41 cm2 code = 7139237371) AoV Area, VTI (test 2.36 cm2 code = 0986710330) AoV Mean PG (test 5.59 mmHg code = 7560834782) AoV Peak PG (test 11.08 mmHg code = 9241383723) AoV Vmax (test code 1.77 m/s = 0845386773) AoV VTI (test code = 0.30 m 1873927766) IVS,d (test code = 1.11 cm 8547056886) LV,d (test code = 5.57 cm 1230408044) LV EF,A2C (test code 44.91 % = 1325069587) LV EF,A4C (test code 42.43 % = 0566443848) LV EF,BP (test code 42.76 % = 0878936515) [employer],d A2C (test 7.79 cm code = 6992830682) [employer],d A4C (test 7.59 cm code = 8844752260) [employer],s A2C (test 7.10 cm code = 5453381756) [employer],s A4C (test 6.58 cm code = 6383604752) LV,s (test code = 4.42 cm 3985701678) LV SV,A2C (test code 59.18 % = 6209971165) LV SV,A4C (test code 64.42 % = 5263787076) LV Vol,d A2C (test 131.77 mL code = 0005519969) LV Vol,d A4C (test 151.81 ml code = 9831963532) LV Vol,d BP (test 142.79 ml code = 8460121167) LV Vol,s A2C (test 72.60 mL code = 1690663616) LV Vol,s A4C (test 87.39 ml code = 9146334591) LV Vol,s BP (test 81.72 nl code = 7819660017) LVOT Diam,S (test 2.08 cm code = 2117800447) LVOT Vmax (test code 1.16 m/s = 3069086790) LVOT VTI (test code 0.21 m = 3993826383) LVPWD,d (test code = 1.05 cm 3058567931) TR Vpeak (test code 2.66 mm/s = 1072382393) AR Press Half Time 504.65 ms (test code = 7484125617) TR pk grad (test 27.27 mmHg code = 7178280228) MR Vmax (test code = 6.10 m/s 6464083644) MR peak grad (test 121.70 mmHg code = 0960954915) E wave decelartion 149.68 msec time (test code = 1886359208) MV Peak E Des (test 1.46 m/s code = 6035981201) LVOT stroke volume 0.71 cm3 (test code = 5702536633) AV LVOT peak 5.36 mmHg gradient (test code = 9312203909) LV SYS VOL (test 88.60 ml code = 4768850236) LV THOMPSON VOL (test 151.60 ml code = 3039778146) LA area s A4C (test 35.87 cm2 code = 3526177016) LV SV Teich 2D (test 63.00 ml code = 9070327703) LVOT SI (test code = 38.28 ml/m2 1649904654) AoV Cusp sep (test 1.72 code = 2483221843) AoV Vmn (test code = 1.10 3483997293) IVS s 2D (test code 1.72 = 2715449140) AR slope (test code 2.59 = 3209531112) Ar Vmax (test code = 3.99 7297577133) LA Ao Ratio Mmode 2.07 (test code = 8196762865) LVOT Vmn (test code 0.80 = 8751213750) Pt Size (test code = 162.56 7724648174) Pt Wt (test code = 81.19 9033550734) PV AT (test code = 94.20 msec 9874564361) LVOT mean grad (test 2.88 mmHg code = 1811467331) AR DT (test code = 1541.52 msec 3707208846) AR pk grad (test 58.41 mmHg code = 9128121891) LVPW s PLAX (test 1.41 cm code = 3635297762) MV Decel slope (test 9.79 m/s2 code = 3694512549) LA Vol MOD A4C (test 124.31 ml code = 9943797342) Velocity Ratio 0.66 m/s (V1/V2) (test code = 4689) EF (test code = 41.56 % 0899180456) LVOT area (test code 3.40 cm2 = 0397199665) LVOT VTI (CM) (test 21.00 cm code = 2442418873) RA pressure (test 15.00 mmHg code = 1333060571) LA Vol 4C (test code 124.00 ml = 2603125933) RVSP (test code = 43.38 mmHg 3641380071) LA diam s (test code 5.50 cm = 5064841628) Aortic Root (test 2.63 cm code = 4277456652) TX End Thompson Grad 11.73 (test code = 0138462250) TX End Diat Des 1.71 (test code = 0849900393) AR maxPG (test code 63.74 = 9270653587) D E excurs (test 2.00 code = 5074385738) E f slope (test code 0.08 = 8374674319) E prime lat (test 0.06 code = 1610797522) E keaton sept (test 0.09 code = 7698395615) PV acc T slope (test 6.80 code = 4839810815) CONDE BP EF (test 43.00 % code = 4072933791) LA VOL 2C (test code 138.00 ml = 9905691922) VALERIANO (test code = The left ventricle [...] of aortic valve stenosis.PericardiumNo pericardial effusion seen. [facility] (COVID-19) RNA [Presence] in Respiratory specimen by LANG with probe [id number] 23:11:03 Test Item Value Reference Range Interpretation Comments SARS-CoV-2 (COVID-19) RNA Not detected [Presence] in Respiratory specimen by LANG with probe detection (test code = 85081-9) Whether patient is employed in a Unknown healthcare setting (test code = 41392-9) Whether the patient has symptoms Unknown related to condition of interest (test code = 04088-5) Whether the patient was Unknown hospitalized for condition of interest (test code = 15926-1) Whether the patient was admitted Unknown to intensive care unit (ICU) for condition of interest (test code = 12958-4) Whether patient resides in a Unknown congregate care setting (test code = 32208-1) status (test code = Unknown 75756-8) Date and time of symptom onset Unknown (test code = 56908-7) [facility] [Presence] in Respiratory specimen by LANG with probe [id number] 11:45:59 Test Item Value Reference Range Interpretation Comments SARS-CoV-2 (COVID-19) RNA Not detected Not-Detected [Presence] in Respiratory specimen by LANG with probe detection (test code = 83153-7) Whether patient is employed in a healthcare setting (test code = 78621-0) Whether the patient has symptoms related to condition of interest (test code = 11592-3) Patient was hospitalized because of this condition (test code = 35986-4) Whether the patient was admitted to intensive care unit (ICU) for condition of interest (test code = 95786-5) Whether patient resides in a congregate care setting (test code = 86745-3) [facility]-CoV-[facility] (COVID-19) RNA [Presence] in Respiratory specimen by LANG with probe [id number] 05:28:15 Test Item Value Reference Range Interpretation Comments SARS-CoV-2 (COVID-19) RNA Not detected Not-Detected [Presence] in Respiratory specimen by LANG with probe detection (test code = 74043-1) [facility]-CoV-[facility] (COVID-19) RNA [Presence] in Respiratory specimen by LANG with probe [id number] 23:52:31 Test Item Value Reference Range Interpretation Comments SARS-CoV-2 (COVID-19) RNA Not detected Not-Detected [Presence] in Respiratory specimen by LANG with probe detection (test code = 52114-2) [facility]
[2023-03-24 07:52] LABS: Absolute Lymphocytes (CBC) 1.8 K/uL (0.7-4.9); Hematocrit 26.7 % (36.0-45.0); Lymphocytes % 22.4 % (15.3-44.8); MCV 86.6 fL (80-100); MPV 7.1 fL (7.6-11.3); Platelets 344 thou/uL (152-406); RBC Red Blood Cell Count 3.08 M/uL (3.86-4.86)
--- NOTE | 2023-03-24 07:59 | RAD REPORT ---
EXAM DESCRIPTION: RAD - Chest Single View - 03/24/2023 7:49 am CLINICAL HISTORY: DYSPNEA COMPARISON: Chest Single View dated 01/02/2023; Chest Single View dated 12/29/2022; Chest Single View dated 12/23/2022; Chest Single View dated 11/22/2022 FINDINGS: Lines: Biventricular pacemaker. Lungs: Diffuse prominence of the pulmonary interstitium. Pleural: No significant pleural effusions or pneumothorax. Cardiac: Cardiomegaly. Mediastinum: Within normal limits. Bones: No acute fractures. Other: None IMPRESSION: Mild congestive heart failure suspected. This is similar to 01/02/2023.
[2023-03-24 08:00] LABS: Protime INR 1.47
[2023-03-24 08:08] LABS: SARS-CoV-2 Antigen Rapid Res Positive (Negative)
[2023-03-24 08:25] LABS: Magnesium 2.2 mg/dL (1.6-2.4)
--- NOTE | 2023-03-24 08:37 | EDPHYS ---
Physician Documentation [facility] Name: Latricia Cadet Age: 72 yrs Sex: Female : 1950 Arrival Date: 03/24/2023 Time: 07:18 Bed 5 Private MD: ED Physician Nicho Ellison HPI: 03/24 07:43 This 72 yrs old Female presents to ER via EMS with complaints of sob. rn 07:43 The patient has shortness of breath at rest, with light activity. Onset: The rn symptoms/episode began/occurred this morning. Duration: The symptoms are continuous. The patient's shortness of breath is aggravated by nothing, is alleviated by nothing. Severity of symptoms: At their worst the symptoms were moderate in the emergency department the symptoms. The patient has experienced similar episodes in the past. Patient reports shortness of breath that got worse this morning, is dialysis patient and has missed 3 sessions of dialysis. No fever. Does report sore throat and diarrhea and reports multiple sick contacts at home.. Historical: - Allergies: 07:27 Codeine; rs5 - PMHx: 07:27 angina pectoris; CHF; COPD; Diabetes - NIDDM; heart attack; Hypertension; insomnia; rs5 kidney disease; Rheumatoid Arthritis; Sleep Apnea; dialysis T; - PSHx: 07:27 HD Fistula - Right arm; hysterectomy; pacemaker; rs5 - Immunization history:: Adult Immunizations unknown. - Social history:: Smoking status: unknown. - Family history:: not pertinent. - Hospitalizations: : No recent hospitalization is reported. ROS: 07:43 Constitutional: Negative for fever, chills, and weight loss, Eyes: Negative for injury, rn pain, redness, and discharge, Neck: Negative for injury, pain, and swelling, Cardiovascular: Negative for chest pain, palpitations, and edema, Respiratory: Positive for shortness of breath and cough Abdomen/GI: Negative for abdominal pain, positive for diarrhea. Denies blood in stool. MS/Extremity: Negative for injury and deformity, Skin: Negative for injury, rash, and discoloration, Neuro: Negative for headache, weakness, numbness, tingling, and seizure, Exam: 07:43 Constitutional: This is a well developed, well nourished patient who is awake, alert, rn and in no acute distress. Head/Face: Normocephalic, atraumatic. Cardiovascular: Regular rate and rhythm. No pulse deficits. Respiratory: Mild tachypnea. Diminished breath sounds bilaterally Abdomen/GI: Soft, nontender Skin: Warm, dry MS/ Extremity: Pulses equal, no cyanosis. Neuro: Awake and alert, GCS 15 Vital Signs: 07:23 BP 152 / 64; Pulse 80; Resp 18; Temp 98(O); Pulse Ox 99% on R/A; rs5 08:06 BP 155 / 64; Pulse 78; Resp 17; Temp 98.1; Pulse Ox 99% on R/A; rs5 09:20 BP 123 / 64; Pulse 77; Resp 16; Pulse Ox 99% ; rs5 10:26 BP 134 / 53; Pulse 79; Resp 17; Pulse Ox 99% on R/A; rs5 11:26 BP 144 / 74; Pulse 70; Resp 18; Pulse Ox 98% on R/A; rs5 13:23 BP 129 / 50; Pulse 79; Resp 15 S; Temp 97.6(TE); Pulse Ox 98% on R/A; aa5 MDM: 07:23 Patient medically screened. rn 08:34 Differential diagnosis: CHF exacerbation, pneumonia, Pneumothorax pulmonary edema, rn COVID, volume overload, pulmonary edema. Data reviewed: vital signs, nurses notes, lab test result(s), EKG, radiologic studies, plain films, and as a result, I will admit patient. Consideration of Admission/Observation Patient was admitted/placed on observation. Escalation of care including admission/observation considered. Independent interpretation of the following test(s) in the Emergency Department EKG: See my EKG interpretation above X-Ray: My interpretation is Chest x-ray images show pulmonary edema per my interpretation. Historians other than the Patient: EMS: EMS gives majority of HPI because patient is sleepy. Care significantly affected by the following chronic conditions: Congestive Heart Failure, Chronic Obstructive Pulmonary Disease, Chronic Kidney Disease. Counseling: I had a detailed discussion with the patient and/or guardian regarding the historical points, exam findings, and any diagnostic results supporting the discharge/admit diagnosis, lab results, radiology results, the need for further work-up and treatment in the hospital. Response to treatment: the patient's symptoms have mildly improved after treatment, and as a result, I will admit patient. 03/24 07:24 Order name: BMP; Complete Time: 08:29 rn 03/24 07:24 Order name: Blood Culture Adult (2) rn 03/24 07:24 Order name: CBC with Diff; Complete Time: 08:18 rn 03/24 07:24 Order name: Lipase; Complete Time: 08:29 rn 03/24 07:24 Order name: Magnesium; Complete Time: 08:29 rn 03/24 07:24 Order name: NT PRO-BNP; Complete Time: 08:29 rn 03/24 07:24 Order name: PT-INR; Complete Time: 08:18 rn 03/24 07:24 Order name: Ptt, Activated; Complete Time: 08:18 rn 03/24 07:24 Order name: Troponin HS; Complete Time: 08:29 rn 03/24 07:24 Order name: Flu; Complete Time: 08:18 rn 03/24 07:24 Order name: SARS RAPID; Complete Time: 08:18 rn 03/24 07:24 Order name: XRAY CXR (1 view); Complete Time: 08:18 rn 03/24 07:24 Order name: EKG; Complete Time: 07:24 rn 03/24 09:20 Order name: CONS Physician Consult EDOH 03/24 07:24 Order name: Cardiac monitoring; Complete Time: 07:46 rn 03/24 07:24 Order name: EKG - Nurse/Tech; Complete Time: 07:46 rn 03/24 07:24 Order name: IV Saline Lock; Complete Time: 07:46 rn 03/24 07:24 Order name: Labs collected and sent; Complete Time: 07:46 rn 03/24 07:24 Order name: O2 Per Protocol; Complete Time: 07:46 rn 03/24 07:24 Order name: O2 Sat Monitoring; Complete Time: 07:46 rn Administered Medications: 10:28 Drug: NS 0.9% IV 250 ml IV at bolus once Route: IV; Rate: bolus; Site: left wrist; rs5 10:46 Follow up: Response: No adverse reaction rs5 11:00 Follow up: IV Status: Completed infusion; IV Intake: 250ml aa5 Disposition Summary: 03/24/23 08:36 Hospitalization Ordered Notes: Hospitalization Status: Inpatient Admission rn Provider: Jarrod Leiva rn [facility] rn Condition: Stable rn Problem: new rn Symptoms: have improved rn Bed/Room Type: Standard rn Room Assignment: 401(03/24/23 14:14) eb Diagnosis - Acute pulmonary edema rn - End stage renal disease rn - SARS-associated coronavirus as the cause of diseases classified elsewhere rn Forms: - Medication Reconciliation Form rn - SBAR form rn - Leadership Thank You Letter rn Signatures: Dispatcher [employer] Nicho Allen MD MD rn Botello, Elizabeth eb Sotelo, Ricky, RN RN rs5 Lorie Colindres RN aa5 Corrections: (The following items were deleted from the chart) 07:28 07:27 PMHx: dialysis T; rs5 rs5 07:28 07:27 PMHx: dialysis T; rs5 rs5 07:28 07:27 PMHx: dialysis T; rs5 rs5 07:28 07:27 PMHx: dialysis T; rs5 rs5 07:28 07:27 PMHx: dialysis T; rs5 rs5 07:28 07:27 PMHx: dialysis T; rs5 rs5 07:28 07:27 PMHx: dialysis T; rs5 rs5 13:36 08:36 rn eb 14:14 13:36 417 eb eb
--- NOTE | 2023-03-24 08:37 | ER ---
Nurse's Notes [facility] Name: Latricia Cadet Age: 72 yrs Sex: Female : 1950 Arrival Date: 03/24/2023 Time: 07:18 Bed 5 Private MD: Diagnosis: Acute pulmonary edema;End stage renal disease;SARS-associated coronavirus as the cause of diseases classified elsewhere Presentation: 03/24 07:23 Chief complaint: EMS states: Pt has dialysis Monday, , Monday. She missed rs5 dialysis yesterday and reports feeling unwell. Pt complains of pain in chest when breathing and that several family members have upper respiratory infections. Coronavirus screen: cough unrelated to allergies, nausea. Ebola Screen: No symptoms or risks identified at this time. Initial Sepsis Screen: Does the patient meet any 2 criteria? No. Patient's initial sepsis screen is negative. Does the patient have a suspected source of infection? No. Patient's initial sepsis screen is negative. Risk Assessment: Do you want to hurt yourself or someone else? Patient reports no desire to harm self or others. Onset of symptoms was March 23, 2023 at 14:00. 07:23 Method Of Arrival: EMS: [facility] rs5 07:23 Acuity: JAKE 3 rs5 Historical: - Allergies: 07:27 Codeine; rs5 - PMHx: 07:27 angina pectoris; CHF; COPD; Diabetes - NIDDM; heart attack; Hypertension; insomnia; rs5 kidney disease; Rheumatoid Arthritis; Sleep Apnea; dialysis T; - PSHx: 07:27 HD Fistula - Right arm; hysterectomy; pacemaker; rs5 - Immunization history:: Adult Immunizations unknown. - Social history:: Smoking status: unknown. - Family history:: not pertinent. - Hospitalizations: : No recent hospitalization is reported. Screenin:[address] [facility] ED Fall Risk Assessment (Adult) History of falling in the last 3 months, rs5 including since admission Yes- single mechanical fall (1 pt) Confusion or Disorientation No (0 pts) Intoxicated or Sedated No (0 pts) Impaired Gait Yes (1 pt) Mobility Assist Device Used Yes (1 pt) Altered Elimination No (0 pt) Score/Fall Risk Level 3 or more points = High Risk Oriented to surroundings, Maintained a safe environment, Educated pt \T\ family on fall prevention, incl call for assistance when getting out of bed, Hourly rounding (assess needs \T\ fall precautionary measures) done. Abuse screen: Denies threats or abuse. Nutritional screening: No deficits noted. Tuberculosis screening: No symptoms or risk factors identified. Assessment: 07:25 General: Appears in no apparent distress. uncomfortable, Behavior is calm, cooperative. rs5 Pain: Complains of pain in chest Pain does not radiate. Pain currently is 3 out of 10 on a pain scale. Quality of pain is described as aching, Pain began 2-3 days ago. Is intermittent, Aggravated by coughing. Neuro: Level of Consciousness is awake, alert, obeys commands, Oriented to person, place, time, situation. Cardiovascular: Heart tones S1 S2 present Rhythm is atrial pacer. 07:25 Respiratory: Airway is patent Respiratory effort is even, unlabored, Respiratory rs5 pattern is regular, symmetrical, Breath sounds are clear bilaterally. GI: Abdomen is round non-distended, Bowel sounds present X 4 quads. Abd is soft and non tender X 4 quads. : No signs and/or symptoms were reported regarding the genitourinary system. EENT: No signs and/or symptoms were reported regarding the EENT system. Derm: Skin is intact, Skin is dry, Skin is pale, Skin temperature is warm. Musculoskeletal: Range of motion: limited in all extremities, Reports generalized weakness. 07:25 Reassessment: Pt has AV grafts to upper arms bilat. rs5 08:05 Reassessment: To bedside for blood draw. 2nd set of blood culture obtained via straight rs5 stick to left hand. 08:27 Reassessment: No changes from previously documented assessment. rs5 09:30 Reassessment: Patient and/or family updated on plan of care and expected duration. Pain rs5 level reassessed. Patient is alert, oriented x 3, equal unlabored respirations, skin warm/dry/pink. 10:25 Reassessment: Pt in bed eyes closed, respirations even, unlabored, atrial paced rhythm rs5 noted on monitor, side rails up times two, call light within reach. 11:24 Reassessment: No changes from previously documented assessment. rs5 13:25 Reassessment: Pt cleaned of urinary incontinence, soiled brief noted. Pt cleaned and aa5 clean brief applied. . 13:25 Neuro: Level of Consciousness is awake, alert, obeys commands, Oriented to person, aa5 place, time, situation. Respiratory: Airway is patent Respiratory effort is even, unlabored, Respiratory pattern is regular, symmetrical. Derm: Skin is dry, Skin is pale, Skin temperature is warm. Vital Signs: 07:23 BP 152 / 64; Pulse 80; Resp 18; Temp 98(O); Pulse Ox 99% on R/A; rs5 08:06 BP 155 / 64; Pulse 78; Resp 17; Temp 98.1; Pulse Ox 99% on R/A; rs5 09:20 BP 123 / 64; Pulse 77; Resp 16; Pulse Ox 99% ; rs5 10:26 BP 134 / 53; Pulse 79; Resp 17; Pulse Ox 99% on R/A; rs5 11:26 BP 144 / 74; Pulse 70; Resp 18; Pulse Ox 98% on R/A; rs5 13:23 BP 129 / 50; Pulse 79; Resp 15 S; Temp 97.6(TE); Pulse Ox 98% on R/A; aa5 ED Course: 07:23 Patient arrived in ED. rn 07:23 Nicho Ellison MD is Attending Physician. rn 07:23 Tip Aparicio, JUAN R is Primary Nurse. rs5 07:25 Patient has correct armband on for positive identification. Bed in low position. Call rs5 light in reach. Side rails up X2. 07:27 Triage completed. rs5 07:35 Inserted saline lock: 22 gauge in left wrist, using aseptic technique. Blood collected. rs5 07:51 XRAY CXR (1 view) In Process Unspecified. EDMS 08:36 Jarrod Leiva MD is Hospitalizing Provider. rn 13:55 No provider procedures requiring assistance completed. Patient admitted, IV remains in aa5 place. Administered Medications: 10:28 Drug: NS 0.9% IV 250 ml IV at bolus once Route: IV; Rate: bolus; Site: left wrist; rs5 10:46 Follow up: Response: No adverse reaction rs5 11:00 Follow up: IV Status: Completed infusion; IV Intake: 250ml aa5 Medication: 13:54 VIS not applicable for this client. aa5 Intake: 11:00 IV: 250ml; Total: 250ml. aa5 Outcome: 08:36 Decision to Hospitalize by Provider. rn 13:54 Admitted to Tele accompanied by tech, via stretcher, with chart, Report called to lanie Dennison RN 13:54 Condition: stable 13:54 Instructed on the need for admit, Demonstrated understanding of instructions, 14:21 Patient left the ED. Signatures: Dispatcher [employer] EDNicho Ibrahim MD MD rn Calderon, Audri, RN RN Kira Nj RN RN Tip Aparicio RN RN rs5 Corrections: (The following items were deleted from the chart) 07:28 07:27 PMHx: dialysis T; rs5 rs5 07: 07:27 PMHx: dialysis T; rs5 rs5 07: 07:27 PMHx: dialysis T; rs5 rs5 07: 07:27 PMHx: dialysis T; rs5 rs5 07: 07:27 PMHx: dialysis T; rs5 rs5 07: 07:27 PMHx: dialysis T; rs5 rs5 07: 07:27 PMHx: dialysis T; rs5 rs5
--- NOTE | 2023-03-24 09:16 | P.HP ---
Certification for Inpatient Patient admitted to: Observation With expected LOS: <2 Midnights Patient will require the following post-hospital care: None Practitioner: I am a practitioner with admitting privileges, knowledge of patient current condition, hospital course, and medical plan of care. Services: Services provided to patient in accordance with Admission requirements found in Title 42 Section 412.3 of the Code of Federal Regulations Patient History Date of Service: 03/24/23 Reason for admission: Shortnes of breath History of Present Illness: 72-year-old female with past medical history of end-stage renal disease on hemodialysis, [id number]-nnepecuhc diabetes mellitus, [place], hypertension, insomnia, rheumatoid arthritis, sleep apnea, presents to the emergency room via EMS from home for shortness of breath. patient reports missing due to diarrhea over the last several days. Reports missing the last 3 dialysis. She reports associated nausea, no reported vomiting. Plan to admit for Acute pulmonary edema, ESRD, fluid volume overload,SARS-associated coronavirus. Dr. Marie notified of admission to initiate hemodialysis. ER evaluation BP 152 / 64; Pulse 80; Resp 18; Temp 98(O); Pulse Ox 99% on R/A;, No leukocytosis, normocytic anemia 9.0 26.7 likely secondary to kidney disease, potassium is normal 4.0, BUN 41, creatinine 4.39, elevated BNP [id number], troponin normal at 37 COVID-positive chest x-ray IMPRESSION: Mild congestive heart failure suspected. This is similar to 01/02/2023. So he needs to probably recheck it anything is changed CXR IMPRESSION: Mild congestive heart failure suspected. This is similar to 01/02/2023. Allergies No Known Allergies Allergy (Verified 01/02/22 02:33) Home Medications: Sevelamer Carbonate [Renvela*] 2 tab PO TIDWM 01/02/22 Midodrine HCl 5 mg PO BID 07/19/22 Escitalopram [Lexapro*] 10 mg PO BEDTIME 12/24/22 Isosorbide Mononitrate [Isosorbide Mononitrate ER] 60 mg PO DAILY 12/24/22 Acetaminophen [Tylenol*] 650 mg PO Q4HP PRN 12/29/22 Calcitrol [Rocaltrol*] 0.5 mcg PO SEECOM 12/29/22 Doxazosin [Cardura*] 4 mg PO DAILY 12/29/22 Furosemide [Lasix*] 80 mg PO DAILY 12/29/22 Pantoprazole [Protonix Tab*] 40 mg PO DAILY 12/29/22 Pramipexole [Mirapex*] 0.25 mg PO BEDTIME 12/29/22 Clopidogrel Bisulfate [Plavix*] 75 mg PO DAILY 01/07/23 Nepro Shake [Nepro*] 237 ml PO BID can 01/07/23 Vancomycin/Water For Inj (Peg) [Vancomycin 500 mg/100 ml Bag] 500 mg IV AFTER EACH DIALYSIS 9 Days #1 piggyback 01/07/23 - Past Medical/Surgical History Diabetic: Yes -: Diabetes mellitus type 2-insulin dependent -: Rheumatoid arthritis -: Hypertension -: Hyperlipidemia -: Chronic congestive heart failure-unknown EF -: ESRD on HD -: CAD -: History of DVT/PE -: L ankle fusion -: hysterectomy -: Dialysis catheter placement and removal -: Cholecystectomy -: pacemaker/defibrillator Psychosocial/ Personal History: Patient lives with her - Social History Alcohol use: No CD- Drugs: No Caffeine use: Yes Place of Residence: Home Review of Systems 10-point ROS is otherwise unremarkable Physical Examination - Physical Exam General: Alert, In no apparent distress, Oriented x3 HEENT: Atraumatic, Normocephalic, PERRLA Neck: Supple, 2+ carotid pulse no bruit, JVD not distended Respiratory: Normal air movement, Diminished Cardiovascular: No edema, Normal pulses, Regular rate/rhythm Capillary refill: <2 Seconds Gastrointestinal: Normal bowel sounds, Soft and benign, Other (Diarrhea) Musculoskeletal: No clubbing, No swelling Integumentary: No rashes, No breakdown Neurological: Normal speech, Sensation intact, Other (Generalized weakness) - Studies Laboratory Data (last 24 hrs) 03/24/23 03/24/23 03/24/23 07:39 07:39 07:39 WBC 8.00 Hgb 9.0 L Hct 26.7 L Plt Count 344 PT 16.2 H INR 1.47 APTT 34.0 Sodium 137 Potassium 4.0 BUN 41 H Creatinine 4.39 H Glucose 158 H Magnesium 2.2 Lipase 17 Microbiology Data (last 24 hrs): 03/24/23 07:43 Nasopharnyx Influenza Type A Antigen Screen - Final 03/24/23 07:43 Nasopharnyx Influenza Type B Antigen Screen - Final Assessment and Plan - Plan Assessment and plan Pulmonary edema secondary to fluid volume overload acute end-stage renal disease on hemodialysis Nephrology consult for hemodialysis BP 152 / 64; Pulse 80; Resp 18; Temp 98(O); Pulse Ox 99% on R/A;, No leukocytosis, potassium is normal 4.0, BUN 41, creatinine 4.39, elevated BNP [id number], troponin normal at 37 Daily weight, I&O COVID-positive Diarrhea chest x-ray IMPRESSION: Mild congestive heart failure suspected. O2 2 L keep sats greater than 92% Stool cultures Normocytic anemia likely secondary to CKD anemia 9.0 26.7 Trend H&H wiq-wlbwvsm-caknhzdtj diabetes mellitus Accu-Cheks ACHS History LA hypertension insomnia rheumatoid arthritis sleep apnea resume appropriate home medications DVT prophylaxis Full code DVT heparin Discharge Plan: Home Plan to discharge in: 24 Hours - Advance Directives Does patient have a Living Will: Yes Does patient have a Durable POA for Healthcare: Yes - Code Status/Comfort Care Code Status: Full Code Physician Review: Patient Assessed, Agree with Above Assessment and Plan Critical Care: No Time Spent Managing Pts Care (In Minutes): 50
[2023-03-24] MEDS ORDERED: NA CHLORIDE 0.9% 250 ML ONE (10:32)
--- NOTE | 2023-03-24 11:35 | P.CNS ---
Date of Consult: 03/24/23 Reason for Consult: ESRD, missed HD Requesting Physician: Asia Lorenz Chief Complaint: Shortnes of breath History of Present Illness: Pt is a 72-year-old female who is known to me from prior admissions and is a patient of Dr. Cohn's at [facility]. Pt is currently lethargic so most of the information is obtained through chart review. Pt has a past medical history of end-stage renal disease on hemodialysis TTS with last HD on 03/18, she has a hx of missed HD on a regular basis. She has a hx of ukp-ksanftc-[id number] diabetes mellitus, cardiac disease including some diastolic CHF, hypertension, other and has had freq admissions over the past year. Pt comes in from [place] due to reports of diarrhea per ER records but pt is lethargic on my exam and does not report specific complaints. Allergies No Known Allergies Allergy (Verified 01/02/22 02:33) Home Medications: Sevelamer Carbonate [Renvela*] 2 tab PO TIDWM 01/02/22 Midodrine HCl 5 mg PO BID 07/19/22 Escitalopram [Lexapro*] 10 mg PO BEDTIME 12/24/22 Isosorbide Mononitrate [Isosorbide Mononitrate ER] 60 mg PO DAILY 12/24/22 Acetaminophen [Tylenol*] 650 mg PO Q4HP PRN 12/29/22 Calcitrol [Rocaltrol*] 0.5 mcg PO SEECOM 12/29/22 Doxazosin [Cardura*] 4 mg PO DAILY 12/29/22 Furosemide [Lasix*] 80 mg PO DAILY 12/29/22 Pantoprazole [Protonix Tab*] 40 mg PO DAILY 12/29/22 Pramipexole [Mirapex*] 0.25 mg PO BEDTIME 12/29/22 Clopidogrel Bisulfate [Plavix*] 75 mg PO DAILY 01/07/23 Nepro Shake [Nepro*] 237 ml PO BID can 01/07/23 Vancomycin/Water For Inj (Peg) [Vancomycin 500 mg/100 ml Bag] 500 mg IV AFTER E ACH DIALYSIS 9 Days #1 piggyback 01/07/23 - Past Medical/Surgical History Diabetic: Yes -: Diabetes mellitus type 2-insulin dependent -: Rheumatoid arthritis -: Hypertension -: Hyperlipidemia -: Chronic congestive heart failure-unknown EF -: ESRD on HD -: CAD -: History of DVT/PE -: L ankle fusion -: hysterectomy -: Dialysis catheter placement and removal -: Cholecystectomy -: pacemaker/defibrillator Psychosocial/ Personal History: Patient lives with her - Social History Smoking Status: Unknown if ever smoked Alcohol use: No CD- Drugs: No Caffeine use: Yes Place of Residence: Home Review of Systems is unable to be obtained Physical Examination General: In no apparent distress, Other (Chronically ill appearing, pale) HEENT: Atraumatic, Normocephalic, Other (Dry oral mucosa) Neck: Supple Respiratory: Other (b/l air entry, no wheezes or rhonchi) Cardiovascular: No edema, Regular rate/rhythm, Other (cardiac murmur, upper chest Lt PPM) Gastrointestinal: Soft and benign, Non-distended, No tenderness, No guarding Musculoskeletal: No swelling, No contractures, No warmth Integumentary: No rashes Neurological: Other (Lethargic, keeps eyes mostly closed, verbalizes briefly, no tremors or myoclonus noted) Laboratory Data (last 24 hrs) 03/24/23 03/24/23 03/24/23 07:39 07:39 07:39 WBC 8.00 Hgb 9.0 L Hct 26.7 L Plt Count 344 PT 16.2 H INR 1.47 APTT 34.0 Sodium 137 Potassium 4.0 BUN 41 H Creatinine 4.39 H Glucose 158 H Magnesium 2.2 Lipase 17 Conclusions/Impression: A/P) 1. ESRD 2nd to presumed HTN/DM on HD for several years per reports, last HD on 03/18. Despite missed HD, metab profile shows acceptable lytes and acid base chemistries and while pt is lethargic it is unclear if that is uremia related or other. Did order HD today but may not have staff availability due to other prev scheduled treatments and pt may have to wait until tmrw AM to dialyze. 2. Cardiomyopathy unspecified, chronic diastolic CHF -BNP difficult to interpret due to renal failure, some pulm vasc congestion noted on cxr, pt may not be anuric, will add IV lasix. Will perform UF with HD 3. Acute covid-19 positive status -management per IM 4. Anemia 2nd to CKD -monitor counts closely Ti Glover MD, AZRA
[2023-03-24] MEDS ORDERED: FUROSEMIDE 40 MG/4 ML VIAL IV SCH (12:00)
[2023-03-24] MEDS ORDERED: ONDANSETRON 4 MG/2 ML VIAL IV PRN (14:40)
[2023-03-24] MEDS ORDERED: D50W 25 GM/50 ML SYRINGE IV PRN (14:40)
[2023-03-24] MEDS ORDERED: GLUCAGON 1 MG/VIAL IM PRN (14:40)
[2023-03-24] MEDS: INSULIN REGULAR (HUMAN) 100 UNIT/ML SQ SCH ×3 (15:03→20:28)
[2023-03-24 16:22] VITALS: BMI 23.3
[2023-03-24] MEDS: FUROSEMIDE 40 MG/4 ML VIAL IV SCH (17:14)
[2023-03-24 20:37] LABS: Hepatitis B surface AG Interp. Nonreactive (Nonreactive)
[2023-03-24] MEDS ORDERED: ZOLPIDEM TARTRATE 5 MG TABLET PO ONE (23:00)
[2023-03-25 03:23] LABS: Absolute Lymphocytes (CBC) 2.1 K/uL (0.7-4.9); Hematocrit 27.1 % (36.0-45.0); Lymphocytes % 30.4 % (15.3-44.8); MCV 86.8 fL (80-100); MPV 7.4 fL (7.6-11.3); Platelets 328 thou/uL (152-406); RBC Red Blood Cell Count 3.12 M/uL (3.86-4.86)
[2023-03-25 03:55] LABS: Magnesium 1.8 mg/dL (1.6-2.4); Potassium 4.3 mEq/L (3.5-5.1)
--- NOTE | 2023-03-25 06:43 | P.PN ---
Subjective Date of Service: 03/25/23 Primary Care Provider: Dr. Leiva Chief Complaint: Shortnes of breath Subjective: No C/O voiced, Improving seen in HD, resting with eyes closed, no complaints Review of Systems 10-point ROS is otherwise unremarkable Physical Examination - Vital Signs Temperature: 96.8 F Blood Pressure: 151/69 Pulse: 80 Respirations: 18 Pulse Ox (%): 100 - Physical Exam General: Alert, In no apparent distress, Oriented x3 HEENT: Atraumatic, Normocephalic, PERRLA Neck: Supple, 2+ carotid pulse no bruit Respiratory: Normal air movement, Diminished Cardiovascular: Normal pulses, Regular rate/rhythm Capillary refill: <2 Seconds Gastrointestinal: Normal bowel sounds, Non-distended Musculoskeletal: No clubbing, No swelling Integumentary: No rashes, No breakdown Neurological: Normal speech, Other (Generalized weakness) - Studies Laboratory Data (last 24 hrs) 03/24/23 03/24/23 03/24/23 07:39 07:39 07:39 WBC 8.00 Hgb 9.0 L Hct 26.7 L Plt Count 344 PT 16.2 H INR 1.47 APTT 34.0 Sodium 137 Potassium 4.0 BUN 41 H Creatinine 4.39 H Glucose 158 H Magnesium 2.2 Lipase 17 Microbiology Data (last 24 hrs): 03/24/23 07:43 Nasopharnyx Influenza Type A Antigen Screen - Final 03/24/23 07:43 Nasopharnyx Influenza Type B Antigen Screen - Final Assessment And Plan - Plan Assessment and plan Pulmonary edema secondary to fluid volume overload acute end-stage renal disease on hemodialysis Noncompliance Nephrology consult for hemodialysis BP 152 / 64; Pulse 80; Resp 18; Temp 98(O); Pulse Ox 99% on R/A;, No leukocytosis, potassium is normal 4.0, BUN 41, creatinine 4.39, elevated BNP [id number], troponin normal at 37 Daily weight, I&O end-stage renal disease on hemodialysis TTS with last HD on 03/18, she has a hx of missed HD on a regular basis. 03/28 2.5 l removed in HD COVID-positive Diarrhea chest x-ray IMPRESSION: Mild congestive heart failure suspected. O2 2 L keep sats greater than 92% Stool cultures Normocytic anemia likely secondary to CKD anemia 9.0 26.7 Trend H&H [id number] diabetes mellitus Accu-Cheks ACHS History DE hypertension insomnia rheumatoid arthritis sleep apnea resume appropriate home medications DVT prophylaxis Full code DVT heparin Discharge Plan: Usp - Code Status/Comfort Care Code Status: Full Code Physician Review: Patient Assessed, Agree with Above Assessment and Plan Critical Care: No Time Spent Managing PTS Care (In Minutes): 35
[2023-03-25] MEDS: INSULIN REGULAR (HUMAN) 100 UNIT/ML SQ SCH ×3 (07:30→16:30)
[2023-03-25] MEDS ORDERED: MAGNESIUM SULFATE 1 gm IVPB 1 GM/100 ML BAG IV ONE (08:00)
[2023-03-25] MEDS: FUROSEMIDE 40 MG/4 ML VIAL IV SCH ×2 (08:10→17:28)
[2023-03-25 10:32] VITALS: O2SAT 97
--- NOTE | 2023-03-25 16:10 | P.PN ---
Date of Service: 03/25/23 Vital Signs Temp Pulse Resp BP Pulse Ox 96.8 F 80 18 151/69 H 100 03/25/23 12:52 03/25/23 12:52 03/25/23 12:52 03/25/23 12:52 03/25/23 12:52 Medications Dextrose (D50w 25 Gm/50 Ml Syringe) 12.5 gm IV PRN PRN; Protocol PRN Reason: HYPOGLYCEMIA Furosemide (Furosemide 40 Mg/4 Ml Vial) 40 mg IV BIDL [facility] Last Admin: 03/25/23 08:10 Dose: 40 mg Glucagon (Glucagon 1 Mg/Vial) 1 mg IM 1X PRN; Protocol PRN Reason: HYPOGLYCEMIA Heparin Sodium (Porcine) (Heparin 1,000 Unit/Ml Vial) 2,000 unit IV EVERY HD PRN PRN Reason: Prevent HD System Clotting Insulin Human Regular (Insulin Regular (Human) 100 Unit/Ml) 0 unit SQ ACHS [facility]; Protocol Last Admin: 03/25/23 11:30 Dose: Not Given Ondansetron HCl (Ondansetron 4 Mg/2 Ml Vial) 4 mg IV Q6HP PRN PRN Reason: NAUSEA / VOMITING Microbiology Results 03/24/23 08:05 Blood - Blood Aerobic Blood Culture - Preliminary No growth in 24 hours. 03/24/23 08:05 Blood - Blood Anaerobic Blood Culture - Preliminary No growth in 24 hours. 03/24/23 07:39 Blood - Blood Aerobic Blood Culture - Preliminary No growth in 24 hours. 03/24/23 07:39 Blood - Blood Anaerobic Blood Culture - Preliminary No growth in 24 hours. 03/24/23 07:43 Nasopharnyx Influenza Type A Antigen Screen - Final 03/24/23 07:43 Nasopharnyx Influenza Type B Antigen Screen - Final Assessment/ Plan: Nephrology No dyspnea No chest pain Fatigue and weakness No acute events overnight Vitals, medications, blood work and imaging reviewed in the chart. NAD. NCAT. MMM. Neck supple. Normal respiratory effort. RRR. Abd ND. No C/C. LE Edema none. No rash. AAO. Normal speech. ESRD on HD -HD TIW -Seen and examined on HD HTN with CKD/ CHF -Start Atenolol 25mg qhs DM II with CKD -RISS Diastolic CHF, chronic -Low sodium diet -HD with UF Anemia in CKD -Retacrit prn CKD MBD -Start Ergo -Start Brad Hospitalist note reviewed
[2023-03-25 16:54] VITALS: BP 149/69; TEMP 98.2
[2023-03-25] MEDS ORDERED: SEVELAMER CARBONATE 800 MG TABLET PO SCH (17:00)
[2023-03-25] MEDS ORDERED: EPOETIN ALFA 10,000 UNIT/ML VIAL SQ SCH (20:00)
[2023-03-25] MEDS ORDERED: EPOETIN ALFA 10,000 UNIT/ML VIAL SQ ONE (20:00)
[2023-03-25] MEDS ORDERED: atenoloL 25 MG TAB PO SCH (21:00)
[2023-03-25] MEDS ORDERED: NEPRO SHAKE 237 ML CAN PO SCH (21:00)
[2023-03-25] MEDS ORDERED: DOCUSATE NA 100 MG CAP PO SCH (21:00)
[2023-03-25] MEDS ORDERED: ZOLPIDEM TARTRATE 5 MG TABLET PO ONE (22:48)
[2023-03-26] MEDS ORDERED: MULTIVITAMINS,THERAPEUT 1 TAB PO SCH (09:00)
[2023-03-26] MEDS ORDERED: DRISDOL (VITAMIN D=ERGOCALCIFEROL) 50000 UNIT CAP PO SCH (09:00)
[2023-03-26] MEDS ORDERED: CALCITROL 0.25 MCG CAP PO SCH (09:00)
[2023-03-27] MEDS ORDERED: EPOETIN ALFA 10,000 UNIT/ML VIAL SQ SCH (17:00)
== END 2023-03-25 18:06 | disposition home or self-care (01) ==
LOC: ER 07:18 → ERHOLD 09:17 → 4TH 13:52
PROVIDERS: ADMIT Hospitalist; ATTEND Hospitalist
PROC: 5A1D70Z Performance of Urinary Filtration, Intermittent, Less than 6 Hours Per Day (ICD-10-PCS; principal; 2023-03-25)
DX: E87.70 Fluid overload, unspecified (principal); N18.6 End stage renal disease; J81.1 Chronic pulmonary edema; U07.1 COVID-19; I42.9 Cardiomyopathy, unspecified; I13.2 Hypertensive heart and chronic kidney disease with heart failure and with stage 5 chronic kidney disease, or end stage renal disease; I50.32 Chronic diastolic (congestive) heart failure; I12.0 Hypertensive chronic kidney disease with stage 5 chronic kidney disease or end stage renal disease; E11.22 Type 2 diabetes mellitus with diabetic chronic kidney disease; E11.65 Type 2 diabetes mellitus with hyperglycemia; R19.7 Diarrhea, unspecified; D63.1 Anemia in chronic kidney disease; G47.00 Insomnia, unspecified; M06.9 Rheumatoid arthritis, unspecified; G47.30 Sleep apnea, unspecified; I25.2 Old myocardial infarction; Z99.2 Dependence on renal dialysis; Z88.6 Allergy status to analgesic agent; Z91.158 Patient's noncompliance with renal dialysis for other reason
CPT/HCPCS: 96365; 93005; 87040 ×2; 85025 ×2; 80048 ×2; 36415 ×2; 83735 ×2; 85610; 82947 ×4; 85730; 84484; 83690; 83880 ×2; 87340; 87804 ×2; 71045; 94760 ×3; 99285; 87811; 90970; J3475; J1940 ×3; J1644; J7050; G0378 ×4

== ENCOUNTER 2023-04-27 10:20 | Emergency (ER) | payer OTHER ==
[2023-04-27 10:40] LABS: Absolute Lymphocytes (CBC) 1.9 K/uL (0.7-4.9); Hematocrit 41.9 % (36.0-45.0); Lymphocytes % 26.5 % (15.3-44.8); MCV 89.6 fL (80-100); MPV 9.2 fL (7.6-11.3); Platelets 161 thou/uL (152-406); RBC Red Blood Cell Count 4.67 M/uL (3.86-4.86)
[2023-04-27 10:54] LABS: Potassium 3.7 mEq/L (3.5-5.1)
--- NOTE | 2023-04-27 11:10 | ER ---
Nurse's Notes [facility] Name: Latricia aCdet Age: 72 yrs Sex: Female : 1950 Arrival Date: 04/27/2023 Time: 10:20 Bed 10 Private MD: Diagnosis: Other malaise and fatigue Presentation: 04/27 10:25 Chief complaint: EMS states: "toned out for being unresponsive after dropped off at mb9 dialysis. Pt did not received dialysis. pt responds to painful stimuli. BGL 127, gave 1 mg of Narcan via 22 g to left AC. VS stable. pt stating, "stop, leave me alone.". Coronavirus screen: At this time, the client does not indicate any symptoms associated with coronavirus-19. Ebola Screen: No symptoms or risks identified at this time. Initial Sepsis Screen: Does the patient meet any 2 criteria? No. Patient's initial sepsis screen is negative. Does the patient have a suspected source of infection? No. Patient's initial sepsis screen is negative. Risk Assessment: Do you want to hurt yourself or someone else? Patient reports no desire to harm self or others. Onset of symptoms was April 27, 2023. 10:25 Method Of Arrival: EMS: [facility] mb9 10:25 Acuity: JAKE 3 mb9 Triage Assessment: 10:28 General: Appears in no apparent distress. Behavior is uncooperative. Pain: Denies pain. mb9 EENT: No signs and/or symptoms were reported regarding the EENT system. Neuro: Pupils are PERRLA. Neuro: pt actively squeezing eyes shut. Pt responds to sternal rub. Cardiovascular: Patient's skin is warm and dry. Respiratory: Airway is patent Respiratory effort is even, unlabored, Respiratory pattern is regular, symmetrical. GI: Abdomen is flat, non-distended. : No signs and/or symptoms were reported regarding the genitourinary system. Derm: Skin is fragile, is thin, Skin is dry, Skin is pale, Skin temperature is cool. Musculoskeletal: Range of motion: intact in all extremities. Historical: - Allergies: 10:27 Codeine; mb9 - PMHx: 10:27 dialysis T; Rheumatoid Arthritis; angina pectoris; Hypertension; Sleep Apnea; insomnia; mb9 Diabetes - NIDDM; CHF; COPD; dialysis T; heart attack; kidney disease; - PSHx: 10:27 HD Fistula - Right arm; hysterectomy; pacemaker; mb9 - Immunization history:: Adult Immunizations unknown. - Social history:: Smoking status: unknown. Screenin:32 [facility] ED Fall Risk Assessment (Adult) History of falling in the last 3 months, kc6 including since admission No falls in past 3 months (0 pts) Confusion or Disorientation No (0 pts) Intoxicated or Sedated No (0 pts) Impaired Gait Yes (1 pt) Mobility Assist Device Used Yes (1 pt) Altered Elimination No (0 pt) Score/Fall Risk Level 0 - 2 = Low Risk. Abuse screen: Denies threats or abuse. Denies injuries from another. Nutritional screening: No deficits noted. Tuberculosis screening: No symptoms or risk factors identified. Assessment: 10:35 Reassessment: see triage assessment. mb9 11:13 Reassessment: No changes from previously documented assessment. Patient and/or family mb9 updated on plan of care and expected duration. Pain level reassessed. Patient is alert, oriented x 3, equal unlabored respirations, skin warm/dry/pink. 11:24 Reassessment: spoke to pts [id number], states she will send someone to pick pt up mb9 within 30 minutes- 1 hr. Vital Signs: 10:25 BP 132 / 76; Pulse 80; Resp 18; Temp 97; Pulse Ox 100% on R/A; Weight 56.7 kg; Height 5 mb9 ft. 2 in. ; 11:13 BP 131 / 86; Pulse 80; Resp 14; Pulse Ox 100% on R/A; Pain 0/10; mb9 10:25 Body Mass Index 22.86 (56.70 kg, 157.48 cm) mb9 11:13 Pain Scale: Adult mb9 ED Course: 10:23 Patient arrived in ED. em1 10:25 Mary Estrada RN is Primary Nurse. mb9 10:27 Triage completed. mb9 10:27 Arm band placed on. mb9 10:28 Jose Aguilar MD is Attending Physician. ec2 10:32 Maintain EMS IV. Dressing intact. Good blood return noted. Site clean \\T\\ dry. Gauge \\T\\ shaji 6 site: 22G LAC. Patient maintains SpO2 saturation greater than 95% on room air. 10:33 Patient has correct armband on for positive identification. Placed in gown. Bed in low kc6 position. Call light in reach. Side rails up X2. Client placed on continuous cardiac and pulse oximetry monitoring. NIBP monitoring applied. threshing operator on. 10:34 EKG done, by ED staff, reviewed by Jose Aguilar MD. mb9 11:35 No provider procedures requiring assistance completed. IV discontinued, intact, mb9 bleeding controlled, No redness/swelling at site. Pressure dressing applied. 11:40 Primary Nurse role handed off by Mary Estrada, RN em1 Administered Medications: No medications were administered Medication: 10:35 VIS not applicable for this client. mb9 Outcome: 11:09 Discharge ordered by . ec2 11:36 Discharged to home via wheelchair, with family, mbBen 11:36 Condition: stable 11:36 Discharge instructions given to patient, family, Instructed on discharge instructions, follow up and referral plans. Demonstrated understanding of instructions, follow-up care, 11:39 Patient left the ED. em1 11:45 Patient left the ED. iw Signatures: Brittany Mora, RN Haja Telles em1 Gemma Navarro RN RN kc6 Mary Estrada, RN JUAN R mb9 Lauren, MD MG Garcia ec2 Corrections: (The following items were deleted from the chart) 11:13 10:25 Acuity: JAKE 2 mb9 mb9
--- NOTE | 2023-04-27 11:10 | EDPHYS ---
Physician Documentation [facility] Name: Latricia Cadet Age: 72 yrs Sex: Female : 1950 Arrival Date: 04/27/2023 Time: 10:20 Bed 10 Private MD: ED Physician Jose Aguilar HPI: 04/27 10:29 This 72 yrs old Female presents to ER via EMS with complaints of drowsiness. ec2 10:29 Patient arrives today for evaluation of "unresponsiveness". Patient reportedly was at ec2 her dialysis appointment and subsequently became unresponsive. Patient is intentionally not responding and intentionally keeping her eyes closed will try to open them, on further prodding, she reports that she is sleepy and drowsy. Patient reports she has no pain, states that she last had dialysis 5 days ago. Denies any difficulty breathing.. Historical: - Allergies: 10:27 Codeine; mb9 - PMHx: 10:27 dialysis T; Rheumatoid Arthritis; angina pectoris; Hypertension; Sleep Apnea; insomnia; mb9 Diabetes - NIDDM; CHF; COPD; dialysis T; heart attack; kidney disease; - PSHx: 10:27 HD Fistula - Right arm; hysterectomy; pacemaker; mb9 - Immunization history:: Adult Immunizations unknown. - Social history:: Smoking status: unknown. ROS: 10:29 Constitutional: as per hpi ec2 Exam: 10:29 Constitutional: GEN: NAD Head: atraumatic Eyes: EOMI Ears: External ears are ec2 normal. CV: regular rate LUNGS: no respiratory distress ABD: non-distended SKIN: no evidence of rashes MSK: no evidence of trauma NEURO: moves all extremities equally Vital Signs: 10:25 BP 132 / 76; Pulse 80; Resp 18; Temp 97; Pulse Ox 100% on R/A; Weight 56.7 kg; Height 5 mb9 ft. 2 in. ; 11:13 BP 131 / 86; Pulse 80; Resp 14; Pulse Ox 100% on R/A; Pain 0/10; mb9 10:25 Body Mass Index 22.86 (56.70 kg, 157.48 cm) mb9 11:13 Pain Scale: Adult mb9 MDM: 10:28 Patient medically screened. ec2 10:29 Data reviewed: vital signs. ED course: Patient arrives today due to concern for ec2 increased drowsiness. Examination remarkable for well-appearing nontoxic individual who is intentionally not interacting with us however was answering questions in full sentences and moving all extremities after multiple prompts. Will obtain lab work to evaluate for electrolyte disturbances and anemia, also obtain EKG to evaluate for electrolyte related changes. Currently considering anemia, electrolyte disturbances.. 10:53 ED course: CBC is reassuring without evidence of anemia. Pending metabolic profile. . ec2 11:03 ED course: Metabolic profile shows no renal dysfunction, potassium at 3.7, currently ec2 not elevated and does not require emergent dialysis or admission for dialysis at this time. . 11:07 ED course: EKG independently reviewed and interpreted by me, shows paced rhythm, rate ec2 of 80, no acute ST segment elevations, when compared to external records of previous EKG, this appears similar.. 12 10:28 Order name: CBC with Diff; Complete Time: 10:53 ec2 04/27 10:28 Order name: BMP; Complete Time: 11:02 ec2 04/27 10:28 Order name: EKG; Complete Time: 10:28 ec2 04/27 10:28 Order name: EKG - Nurse/Tech; Complete Time: 10:30 ec2 Administered Medications: No medications were administered Disposition Summary: 04/27/23 11:09 Discharge Ordered Condition: Stable ec2 Diagnosis - Other malaise and fatigue ec2 Followup: ec2 - With: Private Physician - When: - Reason: Recheck today's complaints Discharge Instructions: - Discharge Summary Sheet ec2 - Fatigue ec2 Forms: - Medication Reconciliation Form ec2 - Thank You Letter ec2 - Antibiotic Education ec2 - Prescription Opioid Use ec2 - Patient Portal Instructions ec2 - Leadership Thank You Letter ec2 Signatures: Dispatcher [employer] Mary Aguilar RN RN mb9 Jose Aguilar MD MD ec2
[2023-04-27 11:52] VITALS: TEMP 97; O2SAT 100
[2023-04-27 11:53] VITALS: BP 131/86
--- NOTE | 2023-05-02 14:04 | EKG ---
Test Date: 2023-04-27 Test Time: 10:32:43 Screen Cleaner: MB MEASUREMENT RESULTS: Intervals: Rate: 80 DE: QRSD: 144 QT: 472 QTc: 544 [place]: P: DE: QRS: -67 T: 103 INTERPRETIVE STATEMENTS: V Paced rhythm Electronically Signed On 05-02-23 13:46:27 INSURANCE COUNSEL by Lico Wilkins
== END 2023-04-27 11:45 | disposition home or self-care (01) ==
LOC: ER 10:20
DX: R53.81 Other malaise (principal); R53.83 Other fatigue; E11.22 Type 2 diabetes mellitus with diabetic chronic kidney disease; I13.2 Hypertensive heart and chronic kidney disease with heart failure and with stage 5 chronic kidney disease, or end stage renal disease; N18.6 End stage renal disease; I50.9 Heart failure, unspecified; Z99.2 Dependence on renal dialysis; Z95.0 Presence of cardiac pacemaker; Z88.5 Allergy status to narcotic agent
CPT/HCPCS: 36415; 80048; 85025; 93005; 99285

== ENCOUNTER 2023-05-28 16:48 | Inpatient (IN) | payer OTHER ==
--- NOTE | 2023-05-28 19:06 | RAD REPORT ---
EXAM DESCRIPTION: Bobbyt Single View05/28/2023 5:56 pm CLINICAL HISTORY: DYSPNEA COMPARISON: Chest Single View dated 03/24/2023; Chest Single View dated 01/02/2023; Chest Single View dated 12/29/2022; Chest Single View dated 12/23/2022 TECHNIQUE: Portable AP view of the chest. FINDINGS: Patchy bibasilar airspace opacities more pronounced on the left, progressive since the reilly or radiograph. Stable cardiomegaly. Trace bilateral effusions suspected. No pneumothorax. The medias tinal contours are unremarkable. IMPRESSION: Progressive bibasilar airspace opacities, may reflect pulmonary edema or multifocal pneu monia.
[2023-05-28 19:11] LABS: Absolute Lymphocytes (CBC) 0.7 K/uL (0.7-4.9); Hematocrit 37.8 % (36.0-45.0); Lymphocytes % 11.2 % (15.3-44.8); MPV 8.5 fL (7.6-11.3); Platelets 235 thou/uL (152-406)
[2023-05-28 19:15] LABS: Protime INR 1.36
[2023-05-28 19:24] LABS: Albumin 2.2 g/dL (3.4-5.0); Bilirubin Total 0.8 mg/dL (0.2-1.0); Potassium 3.6 mEq/L (3.5-5.1); Protein, Total 6.8 g/dL (6.4-8.2)
--- NOTE | 2023-05-28 19:47 | ER ---
Nurse's Notes [facility] Name: Latricia Cadet Age: 72 yrs Sex: Female : 1950 Arrival Date: 05/28/2023 Time: 16:48 Bed 13 Private MD: Diagnosis: Generalized edema Presentation: 05/28 17:01 Chief complaint: Patient states: Here in the ED due to not having Dialysis in the last cm10 week. pt complains of shortness of breath and leg swelling. Coronavirus screen: Vaccine status: Patient reports receiving the 2nd dose of the covid vaccine. Client denies travel out of the [place] in the last 14 days. Ebola Screen: Patient denies travel to an Ebola-affected area in the 21 days before illness onset. No symptoms or risks identified at this time. Initial Sepsis Screen: Does the patient meet any 2 criteria? No. Patient's initial sepsis screen is negative. Does the patient have a suspected source of infection? No. Patient's initial sepsis screen is negative. Risk Assessment: Do you want to hurt yourself or someone else? Patient reports no desire to harm self or others. Onset of symptoms was May 28, 2023. 17:01 Method Of Arrival: Wheelchair cm10 17:01 Acuity: JAKE 3 cm10 Historical: - Allergies: 17:00 Codeine; cm10 - PMHx: 17:00 angina pectoris; CHF; kidney disease; heart attack; Sleep Apnea; Diabetes - NIDDM; cm10 dialysis T; dialysis T; Hypertension; COPD; insomnia; Rheumatoid Arthritis; - PSHx: 17:00 HD Fistula - Right arm; hysterectomy; pacemaker; cm10 - Immunization history:: Adult Immunizations up to date. - Social history:: Smoking status: Patient denies any tobacco usage or history of. Screenin:22 [facility] ED Fall Risk Assessment (Adult) History of falling in the last 3 months, ph including since admission No falls in past 3 months (0 pts) Confusion or Disorientation No (0 pts) Intoxicated or Sedated No (0 pts) Impaired Gait Yes (1 pt) Mobility Assist Device Used Yes (1 pt) Altered Elimination Yes (1 pt) Score/Fall Risk Level 3 or more points = High Risk Oriented to surroundings, Maintained a safe environment, Hourly rounding (assess needs \T\ fall precautionary measures) done, Used ambulatory aids as needed (educated on \T\ assisted with). Abuse screen: Denies threats or abuse. Denies injuries from another. Nutritional screening: No deficits noted. Tuberculosis screening: No symptoms or risk factors identified. Assessment: 17:30 General: Appears in no apparent distress. Behavior is calm, cooperative, drowsy, quiet, ph Denies fever, feeling ill. Pain: Complains of pain in chest and right foot and left foot. Neuro: Level of Consciousness is obeys commands, lethargic, Oriented to person, place, time, situation. Cardiovascular: Reports chest pain, shortness of breath, Capillary refill < 3 seconds in bilateral fingers Patient's skin is warm and dry. Edema is 3+ to right elbow, right forearm, right wrist, left knee, left midcalf, left ankle, left foot, left elbow, left forearm, left wrist, left hand, right knee, right midcalf, right ankle and right foot pitting to right forearm, right wrist, right hand, left midcalf, left ankle, left foot, left toes, left forearm, left wrist, left hand, right midcalf, right ankle, right foot and right toes. Cardiovascular: Dialysis shunt: in the dorsal aspect of right forearm. Respiratory: Reports shortness of breath at rest Airway is patent Respiratory effort is even, unlabored, Respiratory pattern is regular, symmetrical. GI: No signs and/or symptoms were reported involving the gastrointestinal system. Patient currently denies abdominal pain, nausea. Derm: Skin is fragile, is thin, Skin is pale. Musculoskeletal: Circulation, motion, and sensation intact. 19:00 General: Appears in no apparent distress. comfortable, unkempt, well developed, pf1 Behavior is calm, cooperative, appropriate for age, quiet. 19:00 Pain: Complains of pain in right forearm and left lower rib cage pain of 8,onset 1 hour pf1 [employer]. Pain currently is 8 out of 10 on a pain scale. Pain began. Neuro: No deficits noted. Level of Consciousness is awake, alert, obeys commands, Oriented to person, place, time, situation. Cardiovascular: Reports chest pain, shortness of breath, Capillary refill < 3 seconds Patient's skin is warm and dry. Cardiovascular: Parent/caregiver reports patient has had shortness of breath. Respiratory: Reports shortness of breath at rest Airway is patent Respiratory effort is even, unlabored, Respiratory pattern is regular, symmetrical. GI: Reports nausea, vomiting. : dialysis fistula to Right upper arm, dialysis only on Monday. Patient stated missed this past week dialsysis. EENT: No deficits noted. No signs and/or symptoms were reported regarding the EENT system. Derm: Wound noted right forearm. Musculoskeletal: Swelling present in upper and lower extremities. 20:00 Reassessment: Patient appears in no apparent distress at this time. Patient and/or pf1 family updated on plan of care and expected duration. Pain level reassessed. Patient is alert, oriented x 3, equal unlabored respirations, skin warm/dry/pink. 21:00 Reassessment: Patient appears in no apparent distress at this time. Patient and/or pf1 family updated on plan of care and expected duration. Pain level reassessed. Patient is alert, oriented x 3, equal unlabored respirations, skin warm/dry/pink. Vital Signs: 17:01 BP 127 / 68; Pulse 80; Resp 18; Temp 96.4; Pulse Ox 96% on R/A; cm10 18:00 BP 107 / 62; Pulse 84; Resp 18; Pulse Ox 100% on R/A; ph 19:00 BP 158 / 95; Pulse 80; Resp 18; Temp 97.5; Pulse Ox 97% on R/A; Pain 8/10; pf1 20:00 BP 166 / 89; Pulse 80; Resp 20; Pulse Ox 97% on R/A; Pain 8/10; pf1 19:00 Pain Scale: Adult pf1 20:00 Pain Scale: Adult pf1 ED Course: 16:51 Patient arrived in ED. im 16:55 Celi Castañeda FNP-C is PHCP. kb 16:55 Jose Aguilar MD is Attending Physician. kb 17:02 Triage completed. cm10 17:02 Arm band placed on Patient placed in an exam room, on a stretcher. cm10 17:09 Angelita Diamond, JUAN R is Primary Nurse. ph 17:58 Chest Single View XRAY In Process Unspecified. EDMS 18:20 Initial lab(s) drawn, by me, sent to lab. EKG done. Missed attempt(s): 22 gauge in left ph antecubital area. Bleeding controlled, band aid applied, catheter tip intact. Inserted saline lock: 22 gauge in left upper arm, using aseptic technique. Blood collected. 19:22 No provider procedures requiring assistance completed. ph 19:23 Patient has correct armband on for positive identification. Bed in low position. Call ph light in reach. Side rails up X2. Client placed on continuous cardiac and pulse oximetry monitoring. NIBP monitoring applied. 19:47 Eligio Wilson MD is Hospitalizing Provider. kb 20:12 Patient admitted, IV remains in place. pf1 05/29 07:41 Primary Nurse role handed off by Angelita Diamond RN 09:22 Melvi Bolden is Primary Nurse. cp4 15:24 Provided Education on: admission. cp4 Administered Medications: No medications were administered Medication: 05/28 19:22 VIS not applicable for this client. ph Outcome: 19:47 Decision to Hospitalize by Provider. kb 20:12 Admitted to ER Hold. [facility]. pf1 20:12 Condition: stable pf1 20:12 Instructed on the need for admit, Demonstrated understanding of instructions, 05/29 15:25 Admitted to Med/surg accompanied by tech, via stretcher, Report called to Phoebe lima4 Condition: stable Instructed on the need for admit, Demonstrated understanding of instructions, 15:48 Patient left the ED. cp4 Signatures: Dispatcher [employer] EDMS Celi Castañeda, ASSISTED LIVING HOME DIRECTOR-C ASSISTED LIVING HOME DIRECTOR-CkFauzia Garcia Patricia, Della Erazo RN, ph, RN RN pf1 Glenda Willard Clarissa, RN RN cm10 Melvi Bolden cp4
--- NOTE | 2023-05-28 19:48 | EDPHYS ---
Physician Documentation [facility] Name: Latricia Cadet Age: 72 yrs Sex: Female : 1950 Arrival Date: 05/28/2023 Time: 16:48 Bed 13 Private MD: ED Physician Jose Aguilar HPI: 05/28 17:04 This 72 yrs old Female presents to ER via Wheelchair with complaints of She wants kb dialysis. 17:04 Family states pt has refused dialysis all week and today wanted to come here to get kb dialysis. States last dialysis was 8 days ago. Pt reports swelling and shortness of breath. Denies any other symptoms. . Historical: - Allergies: 17:00 Codeine; cm10 - PMHx: 17:00 angina pectoris; CHF; kidney disease; heart attack; Sleep Apnea; Diabetes - NIDDM; cm10 dialysis T; dialysis T; Hypertension; COPD; insomnia; Rheumatoid Arthritis; - PSHx: 17:00 HD Fistula - Right arm; hysterectomy; pacemaker; cm10 - Immunization history:: Adult Immunizations up to date. - Social history:: Smoking status: Patient denies any tobacco usage or history of. ROS: 17:03 Constitutional: Negative for fever, chills, and weight loss, kb 17:03 Cardiovascular: Positive for edema, 17:03 Respiratory: Positive for shortness of breath, 17:03 All other systems are negative, Exam: 17:03 Constitutional: This is a well developed, well nourished patient who is awake, alert, kb and in no acute distress. Head/Face: Normocephalic, atraumatic. ENT: Moist Mucous membranes Abdomen/GI: Soft, non-tender. No distention Skin: Warm, dry with normal turgor. Normal color. MS/ Extremity: Pulses equal, no cyanosis. Neurovascular intact. Full, normal range of motion. 17:03 Cardiovascular: Rate: normal, Edema: 3+ edema to level of left foot and right foot, 17:03 Respiratory: the patient does not display signs of respiratory distress, Respirations: normal, Breath sounds: are clear throughout, 17:03 Neuro: Exam negative for acute changes, Vital Signs: 17:01 BP 127 / 68; Pulse 80; Resp 18; Temp 96.4; Pulse Ox 96% on R/A; cm10 18:00 BP 107 / 62; Pulse 84; Resp 18; Pulse Ox 100% on R/A; ph 19:00 BP 158 / 95; Pulse 80; Resp 18; Temp 97.5; Pulse Ox 97% on R/A; Pain 8/10; pf1 20:00 BP 166 / 89; Pulse 80; Resp 20; Pulse Ox 97% on R/A; Pain 8/10; pf1 19:00 Pain Scale: Adult pf1 20:00 Pain Scale: Adult pf1 MDM: 16:55 Patient medically screened. kb 17:04 Data reviewed: vital signs, nurses notes. Historians other than the Patient: Family kb Member: family. 19:43 Differential diagnosis: pulmonary edema, abnormal electrolytes, volume overload. kb Consideration of Admission/Observation Patient was admitted/placed on observation. Escalation of care including admission/observation considered. Management of patient was discussed with the following: Hospitalist: Dr Wilson accepts pt for admission. [employer]: Dr Bonilla agrees with admission for dialysis. Counseling: I had a detailed discussion with the patient and/or guardian regarding the historical points, exam findings, and any diagnostic results supporting the discharge/admit diagnosis, lab results, radiology results, the need for further work-up and treatment in the hospital. 19:47 ED course: x-ray shows edema vs pneumonia. Pt has no cough, congestion, fever, or other kb signs of illness. Suspect edema. 05/28 17:03 Order name: CBC with Diff; Complete Time: 19:15 kb 05/28 17:03 Order name: CMP; Complete Time: 19:26 kb 05/28 17:03 Order name: Protime (+inr); Complete Time: 19:26 kb 05/28 17:03 Order name: Ptt, Activated; Complete Time: 19:26 kb 05/28 20:03 Order name: Urinalysis w/ reflexes EDMS 05/28 20:04 Order name: CBC with Automated Diff EDMS 05/28 20:04 Order name: CBC with Automated Diff EDMS 05/28 20:04 Order name: Comprehensive Metabolic Panel EDMS 05/28 20:04 Order name: Comprehensive Metabolic Panel EDMS 05/28 20:04 Order name: Magnesium EDMS 05/28 20:04 Order name: Magnesium EDMS 05/28 20:04 Order name: Phosphorus EDMS 05/28 20:04 Order name: Phosphorus EDMS 05/29 02:37 Order name: Urinalysis w/ reflexes EDMS 05/29 06:20 Order name: CBC with Automated Diff EDMS 05/29 06:23 Order name: Comprehensive Metabolic Panel EDMS 05/29 06:23 Order name: Phosphorus EDMS 05/29 06:23 Order name: Magnesium EDMS 05/29 08:14 Order name: Glucose, Ancillary Testing EDMS 05/29 12:16 Order name: Glucose, Ancillary Testing EDMS 05/28 17:03 Order name: Chest Single View XRAY; Complete Time: 19:07 kb 05/28 20:03 Order name: CONS Physician Consult EDMS 05/28 17:03 Order name: IV Start; Complete Time: 19:23 kb Administered Medications: No medications were administered Disposition Summary: 05/28/23 19:47 Hospitalization Ordered Notes: Hospitalization Status: Observation kb Provider: Eligio Wilson Condition: Stable kb Problem: new kb Symptoms: are unchanged kb Bed/Room Type: Standard kb Location: Telemetry/MedSurg (observation)(05/29/23 14:54) ja Room Assignment: [facility](05/29/23 14:54) ja Diagnosis - Generalized edema kb Forms: - Medication Reconciliation Form kb - SBAR form kb - Leadership Thank You Letter kb Addendum: 06/02/2023 09:11 I was immediately available for consultation during this patient's visit. I did not e c2 personally see the patient or discuss the patient with the DALJIT. . Signatures: Dispatcher [employer] [facility] Celi Castañeda, PHD INTERN-C PHD INTERN-Ckb Yobani Fraser RN RN ja1 Liss Byrd RN RN cm10 Jose Aguilar MD MD ec2 Cheyenne Viramontes pm6 Corrections: (The following items were deleted from the chart) 05/28 20:12 19:47 Telemetry/MedSurg (observation) kb pm6 20:12 19:47 kb pm6 05/29 14:54 05/28 20:12 [facility] ER HOLD pm6 ja1 05/29 14:54 05/28 20:12 ERHOLD- pm6 ja1
[2023-05-28] MEDS ORDERED: ZOLPIDEM TARTRATE 5 MG TABLET PO PRN (19:58)
[2023-05-28] MEDS ORDERED: ONDANSETRON 4 MG/2 ML VIAL IV PRN ×2 (19:58→21:37)
[2023-05-28] MEDS ORDERED: ACETAMINOPHEN 500 MG TAB PO PRN (19:58)
[2023-05-28] MEDS ORDERED: ACETAMINOPHEN 325 MG TABLET PO PRN (20:02)
--- NOTE | 2023-05-28 20:15 | P.HP ---
Certification for Inpatient Patient admitted to: Inpatient With expected LOS: >2 Midnights Practitioner: I am a practitioner with admitting privileges, knowledge of patient current condition, hospital course, and medical plan of care. Services: Services provided to patient in accordance with Admission requirements found in Title 42 Section 412.3 of the Code of Federal Regulations Patient History Date of Service: 05/28/23 Reason for admission: SOB History of Present Illness: 72-year-old female with a past medical history of hypertension, hyperlipidemia, diabetes, ESRD on dialysis who missed dialysis for the last 1 week was brought to ER with shortness of breath and generalized edema. Denies any chest pain . No fever or chills . Patient is a poor historian hence most of the history is obtained from the chart review and also talking with the ER physician. She has been refusing dialysis for the whole week but she was getting short of breath she told family to bring her to the ER for dialysis. Complains of generalized body pain. And generalized swelling is worsening. Patient also complains of nausea and vomiting. The patient was assessed in the ER and was admitted for further management for volume overload due to missed dialysis . Allergies No Known Allergies Allergy (Verified 01/02/22 02:33) Home medications list reviewed: Yes Home Medications: Sevelamer Carbonate [Renvela*] 2 tab PO TIDWM 01/02/22 Midodrine HCl 5 mg PO BID 07/19/22 Escitalopram [Lexapro*] 10 mg PO BEDTIME 12/24/22 Acetaminophen [Tylenol*] 650 mg PO Q4HP PRN 12/29/22 Calcitrol [Rocaltrol*] 0.5 mcg PO SEECOM 12/29/22 Doxazosin [Cardura*] 4 mg PO DAILY 12/29/22 Furosemide [Lasix*] 80 mg PO DAILY 12/29/22 Pantoprazole [Protonix Tab*] 40 mg PO DAILY 12/29/22 Pramipexole [Mirapex*] 0.25 mg PO BEDTIME 12/29/22 Nepro Shake [Nepro*] 237 ml PO BID can 01/07/23 Apixaban [Eliquis *] 1 tab PO BID 03/24/23 predniSONE [Deltasone] 20 mg PO DAILY #5 tab 03/25/23 - Past Medical/Surgical History Diabetic: Yes Past Medical History: Reviewed- Non-Contributory -: Diabetes mellitus type 2-insulin dependent -: Rheumatoid arthritis -: Hypertension -: Hyperlipidemia -: Chronic congestive heart failure-unknown EF -: ESRD on HD -: CAD -: History of DVT/PE Past Surgical History: Reviewed- Non-Contributory -: L ankle fusion -: hysterectomy -: Dialysis catheter placement and removal -: Cholecystectomy -: pacemaker/defibrillator Psychosocial/ Personal History: Patient lives with her - Family History Family History: Reviewed- Non-Contributory - Social History Smoking Status: Never smoker Alcohol use: No CD- Drugs: No Caffeine use: Yes Review of Systems 10-point ROS is otherwise unremarkable General: Weakness, Malaise Eyes: Unremarkable ENT: Unremarkable Respiratory: Shortness of Breath, SOB with Excertion Cardiovascular: Edema Gastrointestinal: Nausea, Vomiting Genitourinary: Unremarkable Musculoskeletal: Pedal edema Integumentary: Unremarkable Neurological: Unremarkable Physical Examination - Vital Signs Temperature: 98.2 F Blood Pressure: 168/88 Pulse: 78 Respirations: 19 Pulse Ox (%): 95 - Physical Exam General: Alert, Oriented x2, Cooperative, Cachectic, Moderate distress HEENT: Atraumatic, Normocephalic Neck: Supple, No Thyromegaly, No LAD Respiratory: Diminished, Crackles/rales Cardiovascular: Regular rate/rhythm, Normal S1 S2, Edema Capillary refill: <2 Seconds Gastrointestinal: Soft and benign, Non-distended Musculoskeletal: No clubbing, No erythema, Swelling Integumentary: No rashes Neurological: Normal speech, Sensation intact, Normal affect Lymphatics: No axilla or inguinal lymphadenopathy - Studies Laboratory Data (last 24 hrs) 05/28/23 05/28/23 05/28/23 18:40 18:40 18:40 WBC 6.70 Hgb 12.4 Hct 37.8 Plt Count 235 PT 14.8 H INR 1.36 APTT 38.0 H Sodium 136 Potassium 3.6 BUN 65 H Creatinine 4.90 H Glucose 164 H Total Bilirubin 0.8 AST 8 L ALT 11 L Alkaline Phosphatase 119 H Assessment and Plan - Problems (Diagnosis) (1) Volume overload Current Visit: Yes Status: Acute Plan: Volume overload due to missed dialysis Aggressive diuresis Nephrology consult Dialysis in a.m. 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 use: without penitentiary use Diabetes mellitus complication status: with hyperglycemia Qualified Code(s): E11.65 - Type 2 diabetes mellitus with hyperglycemia (4) ESRD (end stage renal disease) Current Visit: No Status: Chronic Plan: Renal parameters monitored Missed dialysis Nephrology consulted Electrolytes monitor and replace accordingly Will also start on albumin Hypertension Continue midodrine GERD continue home medications and titrate as needed Discharge Plan: Home Plan to discharge in: Greater than 2 days - Advance Directives Does patient have a Living Will: No Does patient have a Durable POA for Healthcare: No - Code Status/Comfort Care Code Status: Full Code Time Spent Managing Pts Care (In Minutes): 48
[2023-05-28] MEDS ORDERED: APIXABAN 2.5 MG TABLET PO SCH (21:00)
[2023-05-28] MEDS ORDERED: MIDODRINE HCL 5 MG TABLET PO SCH (21:00)
[2023-05-28] MEDS ORDERED: HEPARIN 5000 UNIT/ML 1 ML VIAL SQ SCH (21:00)
[2023-05-28] MEDS ORDERED: CALCITROL 0.25 MCG CAP PO SCH (21:00)
[2023-05-28] MEDS ORDERED: NEPRO SHAKE 237 ML CAN PO SCH (21:00)
[2023-05-28] MEDS ORDERED: PRAMIPEXOLE 0.25 MG TAB PO SCH (21:00)
[2023-05-28] MEDS ORDERED: ESCITALOPRAM 20 MG TAB PO SCH (21:00)
[2023-05-28] MEDS ORDERED: ALBUTEROL 2.5 MG/3 ML NEB SOL NEB PRN (21:35)
[2023-05-28] MEDS: FUROSEMIDE 40 MG/4 ML VIAL IV SCH (22:30)
[2023-05-28] MEDS ORDERED: FUROSEMIDE 40 MG/4 ML VIAL ONE (22:35)
[2023-05-28] MEDS: ESCITALOPRAM 20 MG TAB PO SCH (23:00)
[2023-05-29] MEDS: FUROSEMIDE 40 MG/4 ML VIAL IV SCH ×3 (01:00→16:21)
[2023-05-29] MEDS ORDERED: FUROSEMIDE 40 MG/4 ML VIAL IV SCH (01:00)
[2023-05-29] MEDS: ACETAMINOPHEN 325 MG TABLET PO PRN (01:33)
[2023-05-29 02:37] LABS: Specific Gravity 1.017 (1.005-1.030); Urine Bacteria <20 /HPF (<20); Urine Bilirubin NEGATIVE (Negative); Urine Blood Trace (Negative); Urine Clarity Extremely Turbid (Clear); Urine Color Yellow (Yellow); Urine Glucose TRACE (Negative); Urine Protein 2+ (Negative); Urine Urobilinogen Normal (Normal); Urine pH 5.5 (5.0-7.0)
[2023-05-29 02:44] VITALS: BMI 23.1
[2023-05-29 06:17] LABS: Absolute Lymphocytes (CBC) 0.7 K/uL (0.7-4.9); Hematocrit 36.5 % (36.0-45.0); Lymphocytes % 11.5 % (15.3-44.8); MPV 8.5 fL (7.6-11.3); Platelets 220 thou/uL (152-406); RBC Red Blood Cell Count 4.06 M/uL (3.86-4.86)
[2023-05-29 06:20] LABS: AST/SGOT 9 U/L (15-37); Albumin 2.1 g/dL (3.4-5.0); Alkaline Phosphatase 103 U/L (45-117); BUN Blood Urea Nitrogen 67 mg/dL (7-18); Bicarbonate 20 mEq/L (21-32); Bilirubin Total 0.8 mg/dL (0.2-1.0); Glomerular Filtration Rate 9 ml/min (=/>90); Glucose Level 137 mg/dL (74-106); Phosphorus 7.1 mg/dL (2.5-4.9); Potassium 3.7 mEq/L (3.5-5.1); Protein, Total 6.5 g/dL (6.4-8.2); Sodium Level 139 mEq/L (136-145)
[2023-05-29 06:22] LABS: ALT/SGPT < 10 U/L (13-56)
[2023-05-29] MEDS: INSULIN REGULAR (HUMAN) 100 UNIT/ML SQ SCH ×4 (07:30→19:41)
[2023-05-29] MEDS ORDERED: SEVELAMER CARBONATE 800 MG TABLET PO SCH (08:00)
[2023-05-29] MEDS ORDERED: DOXAZOSIN 4 MG TAB PO SCH (09:00)
[2023-05-29] MEDS: HEPARIN 5000 UNIT/ML 1 ML VIAL SQ SCH ×2 (09:00→20:57)
[2023-05-29] MEDS ORDERED: PANTOPRAZOLE 40MG TABLET PO SCH (09:00)
[2023-05-29] MEDS: MIDODRINE HCL 5 MG TABLET PO SCH ×2 (09:00→20:56)
[2023-05-29] MEDS ORDERED: FUROSEMIDE 40 MG/4 ML VIAL ONE (09:14)
[2023-05-29] MEDS ORDERED: HEPARIN 5000 UNIT/ML 1 ML VIAL ONE (09:14)
--- NOTE | 2023-05-29 12:21 | EKG ---
Test Date: 2023-05-28 Test Time: 18:41:28 Hat Measurer: P MEASUREMENT RESULTS: Intervals: Rate: 80 AK: QRSD: 144 QT: 456 QTc: 525 Sanger: P: AK: QRS: -71 T: 68 INTERPRETIVE STATEMENTS: Wide QRS rhythm Left axis deviation Right bundle branch block Inferior infarct, age undetermined Abnormal ECG Compared to ECG 04/27/2023 10:32:43 Uncertain supraventricular rhythm now present Left-axis deviation now present Right bundle-branch block now present Myocardial infarct finding now present Ventricular-paced complex(es) or rhythm no longer present Electronically Signed On 05-29-23 12:19:12 PRODUCTION TECHNOLOGIST by Lico Wilkins
[2023-05-29 16:02] LABS: Hepatitis B Surface Ab - Quant 8.51 mIU/mL (<8.0); Hepatitis B surface AG Interp. Nonreactive (Nonreactive)
[2023-05-29] MEDS: ESCITALOPRAM 20 MG TAB PO SCH (20:56)
[2023-05-29] MEDS ORDERED: ESCITALOPRAM 20 MG TAB PO SCH (21:00)
--- NOTE | 2023-05-29 21:18 | P.CNS ---
Date of Consult: 05/29/23 Reason for Consult: ESRD Requesting Physician: Jarrod Leiva Chief Complaint: SOB History of Present Illness: 72-year-old female with a past medical history of hypertension, hyperlipidemia, diabetes, ESRD on dialysis who missed dialysis for the last 1 week was brought to ER with shortness of breath and generalized edema. Denies any chest pain . No fever or chills . Patient is a poor historian hence most of the history is obtained from the chart review and also talking with the ER physician. She has been refusing dialysis for the whole week but she was getting short of breath she told family to bring her to the ER for dialysis. Complains of generalized body pain. And generalized swelling is worsening. Patient also complains of nausea and vomiting. The patient was assessed in the ER and was admitted for further management for volume overload due to missed dialysis. ozricnicolle 17:04 This 72 yrs old Female presents to ER via Wheelchair with complaints of She wants kb dialysis. 17:04 Family states pt has refused dialysis all week and today wanted to come here to get kb dialysis. States last dialysis was 8 days ago. Pt reports swelling and shortness of breath. Denies any other symptoms. Allergies No Known Allergies Allergy (Verified 01/02/22 02:33) Home medications list reviewed: Yes Home Medications: Sevelamer Carbonate [Renvela*] 2 tab PO TIDWM 01/02/22 Midodrine HCl 5 mg PO BID 07/19/22 Escitalopram [Lexapro*] 10 mg PO BEDTIME 12/24/22 Acetaminophen [Tylenol*] 650 mg PO Q4HP PRN 12/29/22 Calcitrol [Rocaltrol*] 0.5 mcg PO SEECOM 12/29/22 Doxazosin [Cardura*] 4 mg PO DAILY 12/29/22 Furosemide [Lasix*] 80 mg PO DAILY 12/29/22 Pantoprazole [Protonix Tab*] 40 mg PO DAILY 12/29/22 Pramipexole [Mirapex*] 0.25 mg PO BEDTIME 12/29/22 Nepro Shake [Nepro*] 237 ml PO BID can 01/07/23 Apixaban [Eliquis *] 1 tab PO BID 03/24/23 predniSONE [Deltasone] 20 mg PO DAILY #5 tab 03/25/23 - Past Medical/Surgical History Diabetic: Yes -: DM II -: Rheumatoid arthritis -: HTN -: HLD -: Diastolic CHF -: ESRD on HD (Dr. Cohn/ Dr. Marie) -: CAD -: History of DVT/PE -: L ankle fusion -: hysterectomy -: Dialysis catheter placement and removal -: Cholecystectomy -: pacemaker/defibrillator -: dialysis fistula placed to right upper arm Psychosocial/ Personal History: Patient lives with her - Social History Smoking Status: Unknown if ever smoked Alcohol use: No CD- Drugs: No Caffeine use: Yes Place of Residence: Home Review of Systems 10-point ROS is otherwise unremarkable General: Weakness, Malaise Physical Examination Temp Pulse Resp BP Pulse Ox 96.9 F 80 18 159/70 H 95 05/29/23 20:00 05/29/23 20:00 05/29/23 20:00 05/29/23 20:00 05/29/23 20:00 General: In no apparent distress, Oriented x3, Cooperative HEENT: Atraumatic Neck: Supple Respiratory: Diminished Cardiovascular: No edema, Regular rate/rhythm Gastrointestinal: Soft and benign, Non-distended Musculoskeletal: No clubbing, No contractures Integumentary: No rashes, No cyanosis Neurological: Normal speech Blood work reviewed in the chart. Imagings Data: darrenrice EXAM DESCRIPTION: RADChest Single View05/28/2023 5:56 pm CLINICAL HISTORY: DYSPNEA COMPARISON: Chest Single View dated 03/24/2023; Chest Single View dated 01/02/2023; Chest Single View dated 12/29/2022; Chest Single View dated 12/23/2022 TECHNIQUE: Portable AP view of the chest. FINDINGS: Patchy bibasilar airspace opacities more pronounced on the left, progressive since the prior radiograph. Stable cardiomegaly. Trace bilateral effusions suspected. No pneumothorax. The mediastinal contours are unremarkable. IMPRESSION: Progressive bibasilar airspace opacities, may reflect pulmonary edema or multifocal pneumonia. Conclusions/Impression: ESRD on HD -HD TIW HTN with CKD/ CHF -Monitor BP Diastolic CHF, A/C -Low sodium diet -HD with UF DM II with CKD -RISS Hypoalbuminemia -Nepro TID Anemia in CKD -Retacrit prn CKD MBD -Start Ergo & Renvela Hospitalist and ER notes reviewed Thank you kindly for the consultation
[2023-05-29] MEDS ORDERED: NA CHLORIDE 0.9% 1,000 ML IV PRN (21:21)
[2023-05-29] MEDS ORDERED: MANNITOL 25% 12.5 GM/50 ML VIAL IV PRN (21:21)
[2023-05-29] MEDS ORDERED: ALBUMIN HUMAN 25% 50 ML IV SCH (22:00)
[2023-05-30] MEDS: FUROSEMIDE 40 MG/4 ML VIAL IV SCH ×2 (01:48→09:21)
[2023-05-30 07:04] VITALS: BP 130/61; TEMP 96.9
[2023-05-30] MEDS: INSULIN REGULAR (HUMAN) 100 UNIT/ML SQ SCH ×3 (07:30→16:30)
--- NOTE | 2023-05-30 07:36 | RAD REPORT ---
EXAM DESCRIPTION: Bernabe Single View05/30/2023 4:18 am CLINICAL HISTORY: Chest pain COMPARISON: May 28, 2023 FINDINGS: No significant change mild bilateral pulmonary opacities. Marked cardiomegaly IMPRESSION: Mild bilateral pulmonary opacities may represent pulmonary edema or pneumonia
--- NOTE | 2023-05-30 07:45 | P.PN ---
Subjective Date of Service: 06/04/23 Chief Complaint: SOB Flat affect, shortness of breath with exertion, - Physical Exam General: Alert, Oriented x2, Cooperative, Cachectic, Moderate distress HEENT: Atraumatic, Normocephalic Neck: Supple, No Thyromegaly, No LAD Respiratory: Diminished, Crackles/rales Cardiovascular: Regular rate/rhythm, Normal S1 S2, Edema Capillary refill: <2 Seconds Gastrointestinal: Soft and benign, Non-distended Musculoskeletal: No clubbing, No erythema, Swelling Integumentary: No rashes Neurological: Normal speech, Sensation intact, Normal affect Lymphatics: No axilla or inguinal lymphadenopathy Review of Systems per HPI Physical Examination - Vital Signs Temperature: 96.9 F Blood Pressure: 130/61 Pulse: 76 Respirations: 17 Pulse Ox (%): 99 Assessment And Plan - Plan Assessment plan acute on chronic heart failure Patient has history of congestive heart failure started on aggressive diuresis Continue home medications and titrate as needed Monitor closely under telemetry Will get an Echocardiogram hest Single View05/28/2023 5:56 pm CLINICAL HISTORY: DYSPNEA COMPARISON: Chest Single View dated 03/24/2023; Chest Single View dated 01/02/2023; Chest Single View dated 12/29/2022; Chest Single View dated 12/23/2022 TECHNIQUE: Portable AP view of the chest. FINDINGS: Patchy bibasilar airspace opacities more pronounced on the left, progressive since the prior radiograph. Stable cardiomegaly. Trace bilateral effusions suspected. No pneumothorax. The mediastinal contours are unremarkable. IMPRESSION: Progressive bibasilar airspace opacities, may reflect pulmonary edema or multifocal pneumonia. Conclusions/Impression: End-stage renal disease on hemodialysis Nephrology consult, resume hemodialysis Dr. Cohn Acute cystitis UA greater than 500 leukoesterase Insulin-dependent diabetes mellitus Resume home insulin, Accu-Cheks, sliding scale insulin GERD resume home PPI Full code renal diet DVT heparin Disposition Home with home health - Code Status/Comfort Care Code Status: Full Code Critical Care: No Time Spent Managing PTS Care (In Minutes): 35
[2023-05-30] MEDS ORDERED: CALCITROL 0.25 MCG CAP PO SCH (09:00)
[2023-05-30] MEDS ORDERED: COENZYME Q10- 200 MG CAP PO SCH (09:00)
[2023-05-30] MEDS: NEPRO SHAKE 237 ML CAN PO SCH ×2 (09:00→14:00)
[2023-05-30] MEDS ORDERED: DOCUSATE NA 100 MG CAP PO SCH (09:00)
[2023-05-30] MEDS ORDERED: SMZ./TMP. 800/160 MG TABLET PO SCH (09:00)
[2023-05-30] MEDS ORDERED: MULTIVITAMINS,THERAPEUT 1 TAB PO SCH (09:00)
[2023-05-30] MEDS ORDERED: DRISDOL (VITAMIN D=ERGOCALCIFEROL) 50000 UNIT CAP PO SCH (09:00)
[2023-05-30] MEDS: MIDODRINE HCL 5 MG TABLET PO SCH (09:22)
[2023-05-30] MEDS: HEPARIN 5000 UNIT/ML 1 ML VIAL SQ SCH (09:22)
[2023-05-30] MEDS: SEVELAMER CARBONATE 800 MG TABLET PO SCH ×3 (09:23→17:00)
[2023-05-30 10:00] VITALS: O2SAT 96
--- NOTE | 2023-05-30 12:09 | P.DS ---
Admission Date: 05/28/23 Discharge Date: 05/30/23 Disposition: ROUTINE DISCHARGE Discharge Condition: GOOD Reason for Admission: SOB Brief History of Present Illness: 72-year-old female with a past medical history of hypertension, hyperlipidemia, diabetes, ESRD on dialysis who missed dialysis for the last 1 week was brought to ER with shortness of breath and generalized edema. Denies any chest pain . No fever or chills . Patient is a poor historian hence most of the history is obtained from the chart review and also talking with the ER physician. She has been refusing dialysis for the whole week but she was getting short of breath she told family to bring her to the ER for dialysis. Complains of generalized body pain. And generalized swelling is worsening. Patient also complains of nausea and vomiting. The patient was assessed in the ER and was admitted for further management for volume overload due to missed dialysis . - Physical Exam General: Alert, Oriented x2, Cooperative, Cachectic, Moderate distress HEENT: Atraumatic, Normocephalic Neck: Supple, No Thyromegaly, No LAD Respiratory: Diminished, equal unlabored Cardiovascular: Regular rate/rhythm, Normal S1 S2, Edema Capillary refill: <2 Seconds Gastrointestinal: Soft and benign, Non-distended Musculoskeletal: No clubbing, No erythema, Swelling Integumentary: No rashes Neurological: Normal speech, Sensation intact, Normal affect Lymphatics: No axilla or inguinal lymphadenopathy Hospital Course: Patient presented with fluid volume overload from end-stage renal disease. Was noted to have missed hemodialysis sessions. Was seen by nephrology consult. Was treated with hemodialysis. Condition improved with hemodialysis. Stable for discharge with follow-up appointment compliance with hemodialysis and nephrology. PROBLEM: Fluid volume overload End-stage renal disease on hemodialysis Treatment noncompliance Follow-up with nephrology in 1 to 2 weeks Continue hemodialysis as previously prescribed Information given for outpatient home health GOAL: Clear understanding of disease process INSTRUCTIONS: Physician Discharge Instructions: -DC IV and DC home -Follow-up with PCP in 1 to 2 weeks -Please call Dr. Leiva at [phone] if any questions regarding hospital stay -Please call nursing station at [phone] if any nursing or medication questions -Return to the emergency room if symptoms worsen Diet: ADA, low sodium Activity: Fall precautions DME: Date Ordered: Name of Company: [employer] Services Needed: None Date or Referral: IMMUNIZATION Influenza Vaccine Indicated: Influenza Vaccine Given: Date Given: Pneumonia Vaccine Indicated: Pneumonia Vaccine Given: Date Given: Vital Signs/Physical Exam: Temp Pulse Resp BP Pulse Ox 96.9 F 76 17 130/61 99 05/30/23 07:47 05/30/23 09:21 05/30/23 07:47 05/30/23 09:21 05/30/23 07:47 Laboratory Data at Discharge: WBC 6.20 thou/uL (4.3-10.9) 05/29/23 05:57 Hgb 12.0 g/dL (12.0-15.0) 05/29/23 05:57 Hct 36.5 % (36.0-45.0) 05/29/23 05:57 Plt Count 220 thou/uL (152-406) 05/29/23 05:57 PT 14.8 SECONDS (9.5-12.5) H 05/28/23 18:40 INR 1.36 05/28/23 18:40 APTT 38.0 SECONDS (24.3-36.9) H 05/28/23 18:40 Sodium 139 mEq/L (136-145) 05/29/23 05:57 Potassium 3.7 mEq/L (3.5-5.1) 05/29/23 05:57 BUN 67 mg/dL (7-18) H 05/29/23 05:57 Creatinine 4.97 mg/dL (0.55-1.02) H 05/29/23 05:57 Glucose 137 mg/dL (74-106) H 05/29/23 05:57 Phosphorus 7.1 mg/dL (2.5-4.9) H 05/29/23 05:57 Magnesium 2.0 mg/dL (1.6-2.4) 05/29/23 05:57 Total Bilirubin 0.8 mg/dL (0.2-1.0) 05/29/23 05:57 AST 9 U/L (15-37) L 05/29/23 05:57 ALT < 10 U/L (13-56) L 05/29/23 05:57 Alkaline Phosphatase 103 U/L (45-117) 05/29/23 05:57 Home Medications: Sevelamer Carbonate [Renvela*] 2 tab PO TIDWM 01/02/22 Midodrine HCl 5 mg PO BID 07/19/22 Escitalopram [Lexapro*] 10 mg PO BEDTIME 12/24/22 Acetaminophen [Tylenol*] 650 mg PO Q4HP PRN 12/29/22 Calcitrol [Rocaltrol*] 0.5 mcg PO SEECOM 12/29/22 Doxazosin [Cardura*] 4 mg PO DAILY 12/29/22 Furosemide [Lasix*] 80 mg PO DAILY 12/29/22 Pantoprazole [Protonix Tab*] 40 mg PO DAILY 12/29/22 Pramipexole [Mirapex*] 0.25 mg PO BEDTIME 12/29/22 Nepro Shake [Nepro*] 237 ml PO BID can 01/07/23 Apixaban [Eliquis *] 1 tab PO BID 03/24/23 predniSONE [Deltasone] 20 mg PO DAILY #5 tab 03/25/23 Physician Discharge Instructions: -DC IV and DC home -Follow-up with PCP in 1 to 2 weeks -Follow-up with Nephrology dialysis clinic for HD -Please call Dr. Leiva at [phone] if any questions regarding hospital stay -Please call nursing station at [phone] if any nursing or medication questions -Return to the emergency room if symptoms worsen Diet: Renal Activity: Fall precautions Followup: Constanza Donald MD [Primary Care Provider] - Time spent managing pt's care (in minutes): 45
[2023-05-30 12:27] LABS: Absolute Lymphocytes (CBC) 0.6 K/uL (0.7-4.9); Hematocrit 40.5 % (36.0-45.0); Lymphocytes % 8.9 % (15.3-44.8); Platelets 177 thou/uL (152-406)
[2023-05-30 12:38] LABS: Potassium 3.6 mEq/L (3.5-5.1)
[2023-05-30] MEDS: ACETAMINOPHEN 325 MG TABLET PO PRN (13:03)
--- NOTE | 2023-05-30 19:29 | P.PN ---
Date of Service: 05/30/23 Vital Signs Temp Pulse Resp BP Pulse Ox 96.9 F 76 17 130/61 99 05/30/23 07:47 05/30/23 09:21 05/30/23 07:47 05/30/23 09:21 05/30/23 07:47 Assessment/ Plan: Nephrology No dyspnea No chest pain No acute events overnight Vitals, medications, blood work and imaging reviewed in the chart. General: In no apparent distress, Oriented x3, Cooperative HEENT: Atraumatic Neck: Supple Respiratory: Diminished Cardiovascular: No edema, Regular rate/rhythm Gastrointestinal: Soft and benign, Non-distended Musculoskeletal: No clubbing, No contractures Integumentary: No rashes, No cyanosis Neurological: Normal speech Blood work reviewed in the chart. Imagings Data: darrenrice EXAM DESCRIPTION: RADChest Single View05/28/2023 5:56 pm CLINICAL HISTORY: DYSPNEA COMPARISON: Chest Single View dated 03/24/2023; Chest Single View dated 01/02/2023; Chest Single View dated 12/29/2022; Chest Single View dated 12/23/2022 TECHNIQUE: Portable AP view of the chest. FINDINGS: Patchy bibasilar airspace opacities more pronounced on the left, progressive since the prior radiograph. Stable cardiomegaly. Trace bilateral effusions suspected. No pneumothorax. The mediastinal contours are unremarkable. IMPRESSION: Progressive bibasilar airspace opacities, may reflect pulmonary edema or multifocal pneumonia. Conclusions/Impression: ESRD on HD -HD TIW HTN with CKD/ CHF -Monitor BP Diastolic CHF, A/C -Low sodium diet -HD with UF DM II with CKD -RISS Hypoalbuminemia -Nepro TID Anemia in CKD -Retacrit prn CKD MBD -Continue Ergo & Renvela Hospitalist note reviewed Case reviewed with hospitalist team
== END 2023-05-30 18:37 | disposition home or self-care (01) | DRG 640 ==
LOC: ER 16:48 → ERHOLD 19:58 → 4TH 05-29 15:24
PROVIDERS: ADMIT Family Medicine; ATTEND Hospitalist
PROC: 5A1D70Z Performance of Urinary Filtration, Intermittent, Less than 6 Hours Per Day (ICD-10-PCS; principal; 2023-05-29)
DX: E87.70 Fluid overload, unspecified (principal); I50.43 Acute on chronic combined systolic (congestive) and diastolic (congestive) heart failure; N18.6 End stage renal disease; I13.2 Hypertensive heart and chronic kidney disease with heart failure and with stage 5 chronic kidney disease, or end stage renal disease; R64 Cachexia; N30.00 Acute cystitis without hematuria; E11.22 Type 2 diabetes mellitus with diabetic chronic kidney disease; E11.65 Type 2 diabetes mellitus with hyperglycemia; D63.1 Anemia in chronic kidney disease; K21.9 Gastro-esophageal reflux disease without esophagitis; M06.9 Rheumatoid arthritis, unspecified; E78.5 Hyperlipidemia, unspecified; E88.09 Other disorders of plasma-protein metabolism, not elsewhere classified; J44.9 Chronic obstructive pulmonary disease, unspecified; I25.10 Atherosclerotic heart disease of native coronary artery without angina pectoris; Z88.5 Allergy status to narcotic agent; Z99.2 Dependence on renal dialysis; Z79.01 Long term (current) use of anticoagulants; Z79.52 Long term (current) use of systemic steroids; Z79.899 Other long term (current) drug therapy; Z90.710 Acquired absence of both cervix and uterus; Z91.158 Patient's noncompliance with renal dialysis for other reason; Z86.718 Personal history of other venous thrombosis and embolism; Z86.711 Personal history of pulmonary embolism; Z95.810 Presence of automatic (implantable) cardiac defibrillator
CPT/HCPCS: 36415; 71045; 80048; 80053; 81001; 82947; 83735; 84100; 85025; 85610; 85730; 86706; 87340; 90935; 93005; 94760; 99285; J1644; J1940; J2405

== ENCOUNTER 2023-06-01 11:37 | Inpatient (IN) | payer OTHER ==
--- NOTE | 2023-06-01 12:21 | RAD REPORT ---
EXAM DESCRIPTION: Bernabe Single View06/01/2023 12:07 pm CLINICAL HISTORY: cough COMPARISON: May 30, 2023 FINDINGS: Small to moderate bilateral pleural effusions may be present Bibasilar atelectasis. Mild interstitial pulmonary edema is suspected Heart is markedly enlarged. Pacemaker leads in place
[2023-06-01 12:38] LABS: Absolute Lymphocytes (CBC) 0.7 K/uL (0.7-4.9); RBC Red Blood Cell Count 4.32 M/uL (3.86-4.86)
[2023-06-01 12:44] LABS: Hematocrit 39.3 % (36.0-45.0); MPV 7.9 fL (7.6-11.3); Platelets 148 thou/uL (152-406)
[2023-06-01 13:03] LABS: Specific Gravity 1.012 (1.005-1.030); Urine Bacteria <20 /HPF (<20); Urine Bilirubin NEGATIVE (Negative); Urine Blood 2+ (Negative); Urine Clarity Extremely Turbid (Clear); Urine Color Yellow (Yellow); Urine Glucose NEGATIVE (Negative); Urine Mucus Slight /HPF (None Seen); Urine Protein 1+ (Negative); Urine Urobilinogen Normal (Normal)
[2023-06-01 13:04] LABS: Protime INR 1.43
[2023-06-01 13:10] LABS: AST/SGOT 7 U/L (15-37); Alkaline Phosphatase 100 U/L (45-117); BUN Blood Urea Nitrogen 58 mg/dL (7-18); Bicarbonate 22 mEq/L (21-32); Bilirubin Total 0.9 mg/dL (0.2-1.0); Glomerular Filtration Rate 8 ml/min (=/>90); Glucose Level 139 mg/dL (74-106); NT PRO-BNP 71639 pg/mL (<125); Potassium 3.7 mEq/L (3.5-5.1); Protein, Total 6.5 g/dL (6.4-8.2); Sodium Level 138 mEq/L (136-145)
[2023-06-01 13:18] LABS: ALT/SGPT < 10 U/L (13-56)
[2023-06-01 14:28] LABS: Blood Morphology Comment NOT SEEN (NOT SEEN); Platelet Estimate DECR; White Blood Cell Scan OK (OK)
--- NOTE | 2023-06-01 14:30 | RAD REPORT ---
EXAM DESCRIPTION: CT - Chest Abd Pelvis Wo Con - 06/01/2023 1:26 pm CLINICAL HISTORY: chest pain, abd pain, dialysis COMPARISON: Thorax Wo Con dated 01/02/2023 TECHNIQUE: Thin axial CT images of the chest, abdomen, and pelvis, performed without IV contrast. Mu ltiplanar reformats were generated and reviewed. All CT scans are performed using dose optimization technique as appropriate and may include automated exposure control or mA/KV adjustment according to patient size. FINDINGS: Moderate bilateral layering pleural effusions with underlying dependent atelectasis or air space opacification. No pneumothorax. Cardiomegaly with at least moderate pericardial effusion. No in trathoracic adenopathy.Left chest wall pacer/ AICD in place. The liver, spleen, pancreas, and adrenal glands are within normal limits. Bilateral atrophic changes of the kidneys. Segmental wall thickening along the sigmoid colon and rectum. Less pronounced wall thickening along t he cecum and ascending colon. This is nonspecific. Mild colonic diverticulosis. No bowel obstruction, free air, free fluid or abscess. No pathologic lymphadenopathy in the abdomen or pelvis. Suboptimally distended urinary bladder, which limits evaluation, although with apparent diffuse wall thickening. No worrisome osseous finding. Dense medial calcifications throughout the enlarged and medium-sized vessels. Pronounced body wall ed kelly. Advanced degenerative changes of the upper lumbar spine with levoconvex scoliosis centered at L2. IMPRESSION: Moderate bilateral effusions and pronounced body wall edema. Findings may relate to volu me overload. Please correlate clinically. Dependent underlying airspace opacities, indeterminate but favoring atelectasis. Cardiomegaly, with moderate pericardial effusion. Segmental wall thickening of the colon, most pronounced along the sigmoid colon and rectum. Findings may relate to congestion/ third-spacing, however infectious/inflammatory colitis cannot be excluded. Nonspecific apparent diffuse bladder wall thickening, which may relate to nondistention. Possibility of cystitis is not entirely excluded.
--- NOTE | 2023-06-01 14:45 | EDPHYS ---
Physician Documentation [facility] Name: Latricia Cadet Age: 72 yrs Sex: Female : 1950 Arrival Date: 06/01/2023 Time: 11:37 Bed 7 Private MD: ED Physician Nicho Ellison HPI: 06/01 11:55 This 72 yrs old Female presents to ER via Unassigned with complaints of chest pain, aMS.rn 11:55 The patient or guardian reports chest pain that is located primarily in the substernal rn area. Onset: just prior to arrival. Associated signs and symptoms: Pertinent negatives: syncope. Severity of pain: At its worst the pain was mild in the emergency department the pain has improved. The patient has experienced similar episodes in the past. EMS reports called out to dialysis center, had just started dialysis when patient stated she did not feel well and reported substernal chest pain. No fever. Patient with recent admission to hospital for volume overload. Only took off a small amount during dialysis today. Patient denies any medication changes. Patient states not eating or drinking much lately.. Historical: - Allergies: 12:15 Codeine; ko1 - PMHx: 12:15 angina pectoris; Sleep Apnea; insomnia; CHF; Diabetes - NIDDM; kidney disease; ko1 Hypertension; Rheumatoid Arthritis; heart attack; dialysis T; COPD; - PSHx: 12:15 HD Fistula - Right arm; hysterectomy; pacemaker; ko1 - Immunization history:: Adult Immunizations unknown. - Social history:: Smoking status: Patient denies any tobacco usage or history of. - Family history:: not pertinent. - Hospitalizations: : The patient was recently seen at [facility]. ROS: 11:55 Constitutional: Negative for fever, chills, and weight loss, Cardiovascular: Negative rn for chest pain, palpitations, and edema, Respiratory: Positive for cough Abdomen/GI: Negative for abdominal pain, nausea, vomiting, diarrhea, and constipation, MS/Extremity: Positive for swelling of all 4 extremities Skin: Positive for wound to right forearm Neuro: Positive for generalized weakness and malaise Exam: 11:55 Constitutional: This is a well developed, well nourished patient who is somnolent but rn awakens to voice Head/Face: Normocephalic, atraumatic. ENT: Dry mucous membranes, no stridor Cardiovascular: Regular rate and rhythm. No pulse deficits. Respiratory: No increased work of breathing, no retractions or nasal flaring. Abdomen/GI: Soft mild epigastric and mid abdominal tenderness. No distention Skin: Right dorsal forearm with early healing wound/superficial abrasion with thick purulence and foul smell present. MS/ Extremity: 3+ edema all 4 extremities Neuro: Somnolent but awakens to voice. Moves all 4 extremities with generalized weakness but equal strength Vital Signs: 12:13 BP 115 / 64; Pulse 80; Resp 16; Temp 98; Pulse Ox 97% on R/A; ko1 13:51 BP 109 / 64; Pulse 80; Resp 16; Pulse Ox 93% ; ld1 15:00 BP 113 / 63; Pulse 81; Resp 15; Pulse Ox 97% on R/A; ko1 MDM: 11:38 Patient medically screened. rn 14:36 Differential diagnosis: pneumonia, pneumothorax, pulmonary edema, anasarca, rn dehydration, weakness, ESRD. Data reviewed: vital signs, nurses notes, lab test result(s), radiologic studies, and as a result, I will admit patient. Consideration of Admission/Observation Patient was admitted/placed on observation. Escalation of care including admission/observation considered. Management of patient was discussed with the following: Hospitalist: . Care significantly affected by the following chronic conditions: Diabetes, Hypertension, Congestive Heart Failure, Chronic Kidney Disease. Counseling: I had a detailed discussion with the patient and/or guardian regarding the historical points, exam findings, and any diagnostic results supporting the discharge/admit diagnosis, lab results, radiology results, the need for further work-up and treatment in the hospital. 06/01 11:39 Order name: Blood Culture Adult (2) rn 06/01 11:39 Order name: CBC with Diff; Complete Time: 14:32 rn 06/01 11:39 Order name: CMP; Complete Time: 13:38 rn 06/01 11:39 Order name: Lactate w/ 2H reflex if indic.; Complete Time: 13:12 rn 06/01 11:39 Order name: Protime (+inr); Complete Time: 13:12 rn 06/01 11:39 Order name: Ptt, Activated; Complete Time: 13:12 rn 06/01 11:39 Order name: Urinalysis w/ reflexes; Complete Time: 13:12 rn 06/01 11:39 Order name: Wound Culture rn 06/01 11:39 Order name: BNP; Complete Time: 13:38 rn 06/01 13:07 Order name: Urine Culture EDNM 06/01 14:28 Order name: CBC Smear Scan; Complete Time: 14:32 EDNM 06/01 15:11 Order name: CBC with Automated Diff EDNM 06/01 15:11 Order name: CBC with Automated Diff EDNM 06/01 15:11 Order name: Comprehensive Metabolic Panel EDNM 06/01 15:11 Order name: Comprehensive Metabolic Panel [facility] 06/01 15:11 Order name: Protime (+INR) EDNM 06/01 15:11 Order name: Protime (+INR) [facility] 06/01 15:11 Order name: PTT, Activated Partial Thromb EDNM 06/01 15:11 Order name: PTT, Activated Partial Thromb EDNM 06/01 11:39 Order name: Chest Single View XRAY; Complete Time: 13:12 rn 06/01 11:58 Order name: CT Chest Abdomen Pelvis W/O Contrast; Complete Time: 14:32 rn 06/01 15:11 Order name: CONS Physician Consult EDNM 06/01 11:39 Order name: Accucheck; Complete Time: 13:27 rn 06/01 11:39 Order name: Cardiac monitoring; Complete Time: 12:02 rn 06/01 11:39 Order name: EKG - Nurse/Tech; Complete Time: 12:31 rn 06/01 11:39 Order name: IV Saline Lock - Large Bore; Complete Time: 12:31 rn 06/01 11:39 Order name: Labs collected and sent; Complete Time: 12:31 rn 06/01 11:39 Order name: O2 Per Protocol; Complete Time: 12:02 rn 06/01 11:39 Order name: O2 Sat Monitoring; Complete Time: 12:02 rn 06/01 11:39 Order name: Vital Signs; Complete Time: 12:02 rn Administered Medications: 14:49 Drug: Rocephin IV 1 grams IV at calculated rate once; Given slow IV push per pharmacy ld1 instructions Route: IV; Rate: calculated rate; Site: left upper arm; Disposition Summary: 06/01/23 14:44 Hospitalization Ordered Notes: Hospitalization Status: Inpatient Admission rn Provider: Jarrod Leiva rn Location: Telemetry/MedSurg (Inpatient) rn Condition: Stable rn Problem: new rn Symptoms: have improved rn Bed/Room Type: Standard rn Room Assignment: 406(06/01/23 15:21) aa5 Diagnosis - Pleural effusion, not elsewhere classified rn - Anasarca rn - Cellulitis of right upper limb rn Forms: - Medication Reconciliation Form rn - SBAR form rn - Leadership Thank You Letter rn Signatures: Dispatcher [employer] EDMS Nicho Ellison MD MD rn Calderon, Audri, RN RN aa5 Gogo Petty RN RN ld1 Aline Ibarra RN RN ko1 Corrections: (The following items were deleted from the chart) 11:58 11:55 Constitutional: This is a well developed, well nourished patient who is somnolent rn but awakens to voice Head/Face: Normocephalic, atraumatic. ENT: Dry mucous membranes, no stridor Cardiovascular: Regular rate and rhythm. No pulse deficits. Respiratory: No increased work of breathing, no retractions or nasal flaring. Abdomen/GI: Soft mild epigastric and mid abdominal tenderness. No distention rn 12:16 12:15 PMHx: dialysis T; ko1 ko1 15:21 14:44 rn aa5
--- NOTE | 2023-06-01 14:45 | ER ---
Nurse's Notes [facility] Name: Latricia Cadet Age: 72 yrs Sex: Female : 1950 Arrival Date: 06/01/2023 Time: 11:37 Bed 7 Private MD: Diagnosis: Pleural effusion, not elsewhere classified;Anasarca;Cellulitis of right upper limb Presentation: 06/01 12:13 Chief complaint: EMS states: called to pick patient up from dialysis for chest pain, ko1 unable to complete dialysis. Coronavirus screen: At this time, the client does not indicate any symptoms associated with coronavirus-19. Ebola Screen: No symptoms or risks identified at this time. Initial Sepsis Screen: Does the patient meet any 2 criteria? No. Patient's initial sepsis screen is negative. Does the patient have a suspected source of infection? No. Patient's initial sepsis screen is negative. Risk Assessment: Do you want to hurt yourself or someone else? Patient reports no desire to harm self or others. Onset of symptoms was June 01, 2023. 12:13 Method Of Arrival: EMS: [facility] ko1 12:13 Acuity: JAKE 3 ko1 Triage Assessment: 12:15 General: Appears distressed, ill, Behavior is calm, cooperative, appropriate for age. ko1 Pain: Complains of pain in chest. Historical: - Allergies: 12:15 Codeine; ko1 - PMHx: 12:15 angina pectoris; Sleep Apnea; insomnia; CHF; Diabetes - NIDDM; kidney disease; ko1 Hypertension; Rheumatoid Arthritis; heart attack; dialysis T; COPD; - PSHx: 12:15 HD Fistula - Right arm; hysterectomy; pacemaker; ko1 - Immunization history:: Adult Immunizations unknown. - Social history:: Smoking status: Patient denies any tobacco usage or history of. - Family history:: not pertinent. - Hospitalizations: : The patient was recently seen at [facility]. Screenin:00 [facility] ED Fall Risk Assessment (Adult) History of falling in the last 3 months, ko1 including since admission No falls in past 3 months (0 pts) Confusion or Disorientation Yes (5 pts) Intoxicated or Sedated No (0 pts) Impaired Gait Yes (1 pt) Mobility Assist Device Used Yes (1 pt) Altered Elimination Yes (1 pt) Score/Fall Risk Level 3 or more points = High Risk Oriented to surroundings, Maintained a safe environment, Educated pt \T\ family on fall prevention, incl call for assistance when getting out of bed, Assessed \T\ reinforced patient's understanding of fall precautions, Provided non-skid footwear, Hourly rounding (assess needs \T\ fall precautionary measures) done, Used ambulatory aids as needed (educated on \T\ assisted with), Used gait belt as appropriate Implemented a Fall Risk Plan of Care, Remained w/in arm's length of patient and in sight while toileting, Offered frequent toileting (1:1 observation), Remained with patient while ambulating, Utilized family, sitter, or virtual supervisor sawing and assembly as indicated. Abuse screen: Denies threats or abuse. Denies injuries from another. Nutritional screening: No deficits noted. Tuberculosis screening: No symptoms or risk factors identified. Assessment: 12:00 Neuro: Oriented to person, place, time. ko1 15:30 Cardiovascular: Capillary refill is sluggish edematous and weeping skin. Rhythm is ko1 Respiratory: Breath sounds with wheezes bilaterally. GI: No deficits noted. : Reports incontinence. EENT: No deficits noted. Derm: Skin is fragile, with poor turgor Skin is moist, Skin is pale, Skin temperature is cool Wound noted dorsal aspect of right forearm Bruising that is on scattered. Musculoskeletal: Capillary refill is sluggish, Swelling present in generalized. Vital Signs: 12:13 BP 115 / 64; Pulse 80; Resp 16; Temp 98; Pulse Ox 97% on R/A; ko1 13:51 BP 109 / 64; Pulse 80; Resp 16; Pulse Ox 93% ; ld1 15:00 BP 113 / 63; Pulse 81; Resp 15; Pulse Ox 97% on R/A; ko1 ED Course: 11:38 Patient arrived in ED. rn 11:38 Nicho Ellison MD is Attending Physician. rn 12:02 Aline Ibarra, JUAN R is Primary Nurse. ko1 12:08 Chest Single View XRAY In Process Unspecified. EDMS 12:15 Triage completed. ko1 12:15 Arm band placed on left wrist. Patient placed in an exam room, on a stretcher, on ko1 aadc plans staff officer, on pulse oximetry, Patient notified of wait time. 12:28 Initial lab(s) drawn, by me, sent to lab. First set of blood cultures drawn by me. aa5 12:31 Inserted saline lock: 22 gauge in left upper arm, using aseptic technique. aa5 12:43 Wound Culture Sent. ko1 12:43 BNP Sent. ko1 12:43 Blood Culture Adult (2) Sent. ko1 12:43 CBC with Diff Sent. ko1 12:43 CMP Sent. ko1 12:43 Lactate w/ 2H reflex if indic. Sent. ko1 12:43 Protime (+inr) Sent. ko1 12:43 Ptt, Activated Sent. ko1 12:43 Urinalysis w/ reflexes Sent. ko1 13:27 CT Chest Abdomen Pelvis W/O Contrast In Process Unspecified. EDMS 14:42 Jarrod Leiva MD is Hospitalizing Provider. rn 15:00 Patient has correct armband on for positive identification. Allergy band placed. Fall ko1 risk band placed. Placed in gown. Bed in low position. Call light in reach. Side rails up X2. Client placed on continuous cardiac and pulse oximetry monitoring. NIBP monitoring applied. textile engraver on. Door closed. Noise minimized. Lights dimmed. Warm blanket given. Pillow given. 15:35 Provided Education on: na. ko1 15:35 No provider procedures requiring assistance completed. ko1 15:36 Patient admitted, IV remains in place. ko1 Administered Medications: 14:49 Drug: Rocephin IV 1 grams IV at calculated rate once; Given slow IV push per pharmacy ld1 instructions Route: IV; Rate: calculated rate; Site: left upper arm; Medication: 15:00 VIS not applicable for this client. ko1 Outcome: 14:44 Decision to Hospitalize by Provider. rn 15:35 Admitted to Tele accompanied by [facility], via stretcher, room 406, with chart, Report ko1 called to Jesi 15:35 Condition: stable 15:35 Instructed on the need for admit, 16:00 Patient left the ED. ko1 Signatures: Dispatcher [employer] EDMS Nicho Ellison MD MD rn Calderon, Audri, RN RN aa5 Gogo Petty RN RN ld1 Aline Ibarra RN RN ko1 Corrections: (The following items were deleted from the chart) 12:16 12:15 PMHx: dialysis T; ko1 ko1 15:33 12:00 Neuro: ko1 ko1
[2023-06-01] MEDS ORDERED: CEFTRIAXONE 1000 MG/VIAL ONE (14:47)
[2023-06-01] MEDS ORDERED: MORPHINE 2 MG/ML SYR IV PRN (15:05)
[2023-06-01] MEDS ORDERED: ONDANSETRON 4 MG/2 ML VIAL IV PRN (15:05)
[2023-06-01] MEDS ORDERED: ACETAMINOPHEN 500 MG TAB PO PRN (15:05)
--- NOTE | 2023-06-01 19:00 | P.CNS ---
Date of Consult: 06/01/23 Reason for Consult: ESRD Requesting Physician: Jarrod Leiva Chief Complaint: Chest Pain History of Present Illness: carlos 11:55 This 72 yrs old Female presents to ER via Unassigned with complaints of chest pain, aMS.rn 11:55 The patient or guardian reports chest pain that is located primarily in the substernal rn area. Onset: just prior to arrival. Associated signs and symptoms: Pertinent negatives: syncope. Severity of pain: At its worst the pain was mild in the emergency department the pain has improved. The patient has experienced similar episodes in the past. EMS reports called out to dialysis center, had just started dialysis when patient stated she did not feel well and reported substernal chest pain. No fever. Patient with recent admission to hospital for volume overload. Only took off a small amount during dialysis today. Patient denies any medication changes. Patient states not eating or drinking much lately.. Allergies No Known Allergies Allergy (Verified 01/02/22 02:33) Home medications list reviewed: Yes Home Medications: Sevelamer Carbonate [Renvela*] 2 tab PO TIDWM 01/02/22 Midodrine HCl 5 mg PO BID 07/19/22 Escitalopram [Lexapro*] 10 mg PO BEDTIME 12/24/22 Acetaminophen [Tylenol*] 650 mg PO Q4HP PRN 12/29/22 Calcitrol [Rocaltrol*] 0.5 mcg PO SEECOM 12/29/22 Furosemide [Lasix*] 80 mg PO DAILY 12/29/22 Pantoprazole [Protonix Tab*] 40 mg PO DAILY 12/29/22 Pramipexole [Mirapex*] 0.25 mg PO BEDTIME 12/29/22 Nepro Shake [Nepro*] 237 ml PO BID can 01/07/23 Apixaban [Eliquis *] 1 tab PO BID 03/24/23 predniSONE [Prednisone*] 20 mg PO DAILY #5 tab 03/25/23 - Past Medical/Surgical History Diabetic: Yes -: DM II -: Rheumatoid arthritis -: HTN -: HLD -: Diastolic CHF -: ESRD on HD (Dr. Cohn/ Dr. Marie) -: CAD -: History of DVT/PE -: L ankle fusion -: hysterectomy -: Dialysis catheter placement and removal -: Cholecystectomy -: pacemaker/defibrillator -: dialysis fistula placed to right upper arm Psychosocial/ Personal History: Patient lives with her - Social History Smoking Status: Unknown if ever smoked Alcohol use: No CD- Drugs: No Caffeine use: Yes Review of Systems 10-point ROS is otherwise unremarkable General: Weakness, Malaise Respiratory: SOB with Excertion Cardiovascular: Edema Physical Examination Temp Pulse Resp BP Pulse Ox 98 F 81 15 113/63 06/01/23 12:13 06/01/23 15:00 06/01/23 15:00 06/01/23 15:00 General: In no apparent distress, Oriented x3, Cooperative HEENT: Atraumatic Neck: Supple Respiratory: Diminished Cardiovascular: Normal S1 S2, Edema Gastrointestinal: Soft and benign, Non-distended Musculoskeletal: No clubbing, No contractures Integumentary: No rashes, No cyanosis Neurological: Normal speech Laboratory Data (last 24 hrs) 06/01/23 06/01/23 06/01/23 12:28 12:28 12:28 WBC 11.20 H Hgb 12.9 Hct 39.3 Plt Count 148 L PT 15.6 H INR 1.43 APTT 34.6 Sodium 138 Potassium 3.7 BUN 58 H Creatinine 5.22 H Glucose 139 H Total Bilirubin 0.9 AST 7 L ALT < 10 L Alkaline Phosphatase 100 Imagings Data: EXAM DESCRIPTION: CT - Chest Abd Pelvis [facility] - 06/01/2023 1:26 pm CLINICAL HISTORY: chest pain, abd pain, dialysis COMPARISON: Thorax [facility] dated 01/02/2023 TECHNIQUE: Thin axial CT images of the chest, abdomen, and pelvis, performed wi thout IV contrast. Multiplanar reformats were generated and reviewed. All CT scans are performed using dose optimization technique as appropriate and may include automated exposure control or mA/KV adjustment according to patient size. FINDINGS: Moderate bilateral layering pleural effusions with underlying dependent atelectasis or airspace opacification. No pneumothorax. Cardiomegaly with at least moderate pericardial effusion. No intrathoracic adenopathy.Left chest wall pacer/ AICD in place. The liver, spleen, pancreas, and adrenal glands are within normal limits. Bilateral atrophic changes of the kidneys. Segmental wall thickening along the sigmoid colon and rectum. Less pronounced wall thickening along the cecum and ascending colon. This is nonspecific. Mild colonic diverticulosis. No bowel obstruction, free air, free fluid or abscess. No pathologic lymphadenopathy in the abdomen or pelvis. Suboptimally distended urinary bladder, which limits evaluation, although with apparent diffuse wall thickening. No worrisome osseous finding. Dense medial calcifications throughout the enlarged and medium-sized vessels. Pronounced body wall edema. Advanced degenerative changes of the upper lumbar spine with levoconvex scoliosis centered at L2. IMPRESSION: Moderate bilateral effusions and pronounced body wall edema. Findings may relate to volume overload. Please correlate clinically. Dependent underlying airspace opacities, indeterminate but favoring atelectasis. Cardiomegaly, with moderate pericardial effusion. Segmental wall thickening of the colon, most pronounced along the sigmoid colon and rectum. Findings may relate to congestion/ third-spacing, however infectious/inflammatory colitis cannot be excluded. Nonspecific apparent diffuse bladder wall thickening, which may relate to nondistention. Possibility of cystitis is not entirely excluded. EXAM DESCRIPTION: Bernabe Single View06/01/2023 12:07 pm CLINICAL HISTORY: cough COMPARISON: May 30, 2023 FINDINGS: Small to moderate bilateral pleural effusions may be present Bibasilar atelectasis. Mild interstitial pulmonary edema is suspected Heart is markedly enlarged. Pacemaker leads in place Conclusions/Impression: ESRD on HD -Acute HD ordered; seen and examined on HD HTN with CKD/ CHF complicated by episodic hypotension -Midodrine prn Diastolic CHF, A/C -HD with UF -Low sodium diet DM II with CKD -RISS Hypoalbuminemia -Start Nepro Anemia in CKD -Retacrit PRN CKD MBD -Start Ergo & Calcitriol -Start Renvela Case reviewed with hospitalist team Thank you kindly for the consultation
[2023-06-01 19:33] LABS: Hepatitis B Surface Ab - Quant 13.74 mIU/mL (<8.0); Hepatitis B surface AG Interp. Nonreactive (Nonreactive)
[2023-06-02 07:14] LABS: Absolute Lymphocytes (CBC) 0.8 K/uL (0.7-4.9); Lymphocytes % 7.2 % (15.3-44.8); MCV 91.5 fL (80-100); MPV 9.3 fL (7.6-11.3); Platelets 140 thou/uL (152-406); RBC Red Blood Cell Count 4.26 M/uL (3.86-4.86)
[2023-06-02 07:18] LABS: Protime INR 1.47
[2023-06-02 07:49] LABS: Albumin 1.8 g/dL (3.4-5.0); Alkaline Phosphatase 106 U/L (45-117); BUN Blood Urea Nitrogen 40 mg/dL (7-18); Bicarbonate 18 mEq/L (21-32); Glomerular Filtration Rate 12 ml/min (=/>90); Glucose Level 69 mg/dL (74-106); Phosphorus 4.8 mg/dL (2.5-4.9); Sodium Level 135 mEq/L (136-145)
[2023-06-02 07:51] LABS: ALT/SGPT < 10 U/L (13-56); AST/SGOT 19 U/L (15-37); Potassium 4.4 mEq/L (3.5-5.1)
[2023-06-02] MEDS: DRISDOL (VITAMIN D=ERGOCALCIFEROL) 50000 UNIT CAP PO SCH (08:25)
[2023-06-02] MEDS: NEPRO SHAKE 237 ML CAN PO SCH ×3 (08:25→20:19)
[2023-06-02] MEDS: CALCITROL 0.25 MCG CAP PO SCH (08:25)
[2023-06-02] MEDS: DOCUSATE NA 100 MG CAP PO SCH ×2 (08:25→20:18)
[2023-06-02] MEDS: MULTIVITAMINS,THERAPEUT 1 TAB PO SCH (08:28)
[2023-06-02] MEDS: COENZYME Q10- 200 MG CAP PO SCH (08:28)
[2023-06-02] MEDS: SEVELAMER CARBONATE 800 MG TABLET PO SCH ×3 (08:31→16:32)
--- NOTE | 2023-06-02 08:44 | P.HP ---
Certification for Inpatient Patient History Date of Service: 06/02/23 Reason for admission: Chest Pain History of Present Illness: 72 year old female past medical history of hypertension, hyperlipidemia, diabetes, ESRD on dialysis who missed dialysis for the last 1 week was brought to ER with shortness of breath and generalized edema. Denies any chest pain . No fever or chills . Patient is a poor historian hence most of the history is obtained from the chart review and also talking with the ER physician. She has been refusing dialysis for the whole week but she was getting short of breath she told family to bring her to the ER for dialysis. Complains of generalized body pain. And generalized swelling is worsening. Patient also complains of nausea and vomiting. The patient was assessed in the ER and was admitted for further management for volume overload due to missed dialysis . - Physical Exam General: Alert, Oriented x2, Cooperative, Cachectic, Moderate distress HEENT: Atraumatic, Normocephalic Neck: Supple, No Thyromegaly, No LAD Respiratory: Diminished, Crackles/rales Cardiovascular: Regular rate/rhythm, Normal S1 S2, Edema Capillary refill: <2 Seconds Gastrointestinal: Soft and benign, Non-distended Musculoskeletal: No clubbing, No erythema, Swelling Integumentary: No rashes Neurological: Normal speech, Sensation intact, Normal affect Lymphatics: No axilla or inguinal lymphadenopathy - Past Medical/Surgical History Diabetic: Yes -: DM II -: Rheumatoid arthritis -: HTN -: HLD -: Diastolic CHF -: ESRD on HD (Dr. Cohn/ Dr. Marie) -: CAD -: History of DVT/PE -: L ankle fusion -: hysterectomy -: Dialysis catheter placement and removal -: Cholecystectomy -: pacemaker/defibrillator -: dialysis fistula placed to right upper arm Psychosocial/ Personal History: Patient lives with her - Social History Smoking Status: Never smoker Alcohol use: No CD- Drugs: No Caffeine use: Yes <Asia Lorenz - Last Filed: 06/02/23 08:46> Date of Service: 06/04/23 <Jarrod Leiva - Last Filed: 06/04/23 09:52> Allergies No Known Allergies Allergy (Verified 01/02/22 02:33) Home Medications: Sevelamer Carbonate [Renvela*] 2 tab PO TIDWM 01/02/22 Midodrine HCl 5 mg PO BID 07/19/22 Escitalopram [Lexapro*] 10 mg PO BEDTIME 12/24/22 Acetaminophen [Tylenol*] 650 mg PO Q4HP PRN 12/29/22 Calcitrol [Rocaltrol*] 0.5 mcg PO SEECOM 12/29/22 Furosemide [Lasix*] 80 mg PO DAILY 12/29/22 Pantoprazole [Protonix Tab*] 40 mg PO DAILY 12/29/22 Pramipexole [Mirapex*] 0.25 mg PO BEDTIME 12/29/22 Nepro Shake [Nepro*] 237 ml PO BID can 01/07/23 Apixaban [Eliquis *] 1 tab PO BID 03/24/23 predniSONE [Prednisone*] 20 mg PO DAILY #5 tab 03/25/23 Review of Systems per HPI <Asia Lorenz - Last Filed: 06/02/23 08:46> Physical Examination - Vital Signs Temperature: 96.9 F Blood Pressure: 101/53 Pulse: 82 Respirations: 18 Pulse Ox (%): 96 - Studies Laboratory Data (last 24 hrs) 06/01/23 06/01/23 06/01/23 12:28 12:28 12:28 WBC 11.20 H Hgb 12.9 Hct 39.3 Plt Count 148 L PT 15.6 H INR 1.43 APTT 34.6 Sodium 138 Potassium 3.7 BUN 58 H Creatinine 5.22 H Glucose 139 H Total Bilirubin 0.9 AST 7 L ALT < 10 L Alkaline Phosphatase 100 Microbiology Data (last 24 hrs): 06/01/23 12:49 Blood - Blood Anaerobic Blood Culture - Final <Asia Lorenz - Last Filed: 06/02/23 08:46> - Studies Microbiology Data (last 24 hrs): 06/01/23 12:25 Wound - Right Arm Gram Stain - Final 06/01/23 12:25 Wound - Right Arm Culture & Sensitivity - Final Klebsiella Oxytoca <Jarrod Leiva - Last Filed: 06/04/23 09:52> Assessment and Plan - Plan Assessment plan End-stage renal disease on hemodialysis Missed dialysis Nephrology consult, resume hemodialysis Resume hemodialysis Acute cystitis Leukocytosis UA greater than 500 leukoesterase Blood cultures, urine cultures, wound cultures ordered pending Cefepime Insulin-dependent diabetes mellitus Resume home insulin, Accu-Cheks, sliding scale insulin GERD resume home PPI Full code renal diet DVT heparin Disposition Home with home health - Advance Directives Does patient have a Living Will: No Does patient have a Durable POA for Healthcare: No Time Spent Managing Pts Care (In Minutes): 55 <Asia Lorenz - Last Filed: 06/02/23 08:46> - Plan Patient was seen and examined. Agree with plan of care as mentioned Above. Patient clinically doing well no new complaints. Patient has not really been compliant with dialysis. Continue with hemodialysis per Nephrology. Plan to discharge home over the next 24-48 hours. <Jarrod Leiva - Last Filed: 06/04/23 09:52>
--- NOTE | 2023-06-02 08:49 | P.PN ---
Subjective Date of Service: 06/02/23 Chief Complaint: Chest Pain Reports missing dialysis, shortness of breath with exertion, no reported fever - Physical Exam General: Alert, Oriented x2, Cooperative, Cachectic, HEENT: Atraumatic, Normocephalic Neck: Supple, No Thyromegaly, No LAD Respiratory: Diminished, Crackles/rales Cardiovascular: Regular rate/rhythm, Normal S1 S2, Edema Capillary refill: <2 Seconds Gastrointestinal: Soft and benign, Non-distended Musculoskeletal: No clubbing, No erythema, Swelling Integumentary: No rashes Neurological: Normal speech, Sensation intact, Normal affect Lymphatics: No axilla or inguinal lymphadenopathy <Asia Lorenz - Last Filed: 06/02/23 17:27> Date of Service: 06/04/23 <Jarrod Leiva - Last Filed: 06/04/23 09:51> Review of Systems 10-point ROS is otherwise unremarkable <Asia Lorenz - Last Filed: 06/02/23 17:27> Physical Examination - Vital Signs Temperature: 96.9 F Blood Pressure: 101/53 Pulse: 82 Respirations: 18 Pulse Ox (%): 96 - Studies Laboratory Data (last 24 hrs) 06/01/23 06/01/23 06/01/23 12:28 12:28 12:28 WBC 11.20 H Hgb 12.9 Hct 39.3 Plt Count 148 L PT 15.6 H INR 1.43 APTT 34.6 Sodium 138 Potassium 3.7 BUN 58 H Creatinine 5.22 H Glucose 139 H Total Bilirubin 0.9 AST 7 L ALT < 10 L Alkaline Phosphatase 100 Microbiology Data (last 24 hrs): 06/01/23 12:49 Blood - Blood Anaerobic Blood Culture - Final <Asia Lorenz - Last Filed: 06/02/23 17:27> - Studies Microbiology Data (last 24 hrs): 06/01/23 12:25 Wound - Right Arm Gram Stain - Final 06/01/23 12:25 Wound - Right Arm Culture & Sensitivity - Final Klebsiella Oxytoca <Jarrod Leiva - Last Filed: 06/04/23 09:51> Assessment And Plan - Plan Assessment plan End-stage renal disease on hemodialysis Acute on chronic heart failure from fluid volume overload Elevated BNP Missed dialysis Treatment noncompliance Nephrology consult, resume hemodialysis Resume hemodialysis BNP 73922, Acute cystitis Leukocytosis UA greater than 500 leukoesterase Blood cultures, urine cultures, wound cultures ordered pending Cefepime Insulin-dependent diabetes mellitus Resume home insulin, Accu-Cheks, sliding scale insulin GERD resume home PPI Full code renal diet DVT heparin Disposition Home with home health Discharge Plan: Home - Code Status/Comfort Care Code Status: Full Code Critical Care: No Time Spent Managing PTS Care (In Minutes): 35 <Asia Lorenz - Last Filed: 06/02/23 17:27> - Plan Patient was seen and examined. Patient is laying in bed with no new complaints. Assessment/plan: 1. patient with end-stage renal disease on hemodialysis 2. acute on chronic heart failure /fluid overload 3. generalized weakness continue with hemodialysis per Nephrology recommendation. Patient's volume status is improved. <Jarrod Leiva - Last Filed: 06/04/23 09:51>
[2023-06-02] MEDS: CEFEPIME 1 GM in NA CHLORIDE 0.9% 100 ML IV SCH (08:58)
--- NOTE | 2023-06-02 17:25 | P.PN ---
Date of Service: 06/02/23 Vital Signs Temp Pulse Resp BP Pulse Ox 97.3 F 76 18 136/58 L 95 06/02/23 16:00 06/02/23 16:00 06/02/23 16:00 06/02/23 16:00 06/02/23 16:00 Medications Acetaminophen (Acetaminophen 500 Mg Tab) 500 mg PO Q6H PRN PRN Reason: pain/fever Calcitriol (Calcitrol 0.25 Mcg Cap) 0.5 mcg PO DAILY [facility] Last Admin: 06/02/23 08:25 Dose: 0.5 mcg Coenzyme Q10 (Coenzyme Q10- 200 Mg Cap) 200 mg PO DAILY [facility] Last Admin: 06/02/23 08:28 Dose: 200 mg Docusate Sodium (Docusate Na 100 Mg Cap) 100 mg PO BID [facility] Last Admin: 06/02/23 08:25 Dose: 100 mg Enteral Nutritional Formula (Nepro Shake 237 Ml Can) 237 ml PO TID [facility] Last Admin: 06/02/23 12:36 Dose: 237 ml Ergocalciferol (Drisdol (Vitamin D=Ergocalciferol) 13100 Unit Cap) 50,000 unit PO Q48H [facility] Stop: 06/04/23 09:01 Last Admin: 06/02/23 08:25 Dose: 50,000 unit Cefepime HCl 1 gm/ Sodium (Chloride) 100 mls @ 200 mls/hr IV DAILY [facility]; Protocol Last Admin: 06/02/23 08:58 Dose: Not Given Morphine Sulfate (Morphine 2 Mg/Ml Syr) 2 mg IV Q4H PRN PRN Reason: ModSevPain Ondansetron HCl (Ondansetron 4 Mg/2 Ml Vial) 4 mg IV Q8H PRN PRN Reason: NAUSEA / VOMITING Sevelamer Carbonate (Sevelamer Carbonate 800 Mg Tablet) 800 mg PO TIDWM [facility] Last Admin: 06/02/23 16:32 Dose: 800 mg Vitamin B Complex/Vit C/Folic Acid (Multivitamins,Therapeut 1 Tab) 1 tab PO DAILY [facility] Last Admin: 06/02/23 08:28 Dose: 1 tab Lab Results (last 24 hrs) 06/01/23 12:28: Hep Bs Antigen Nonreactive, Hep B Surface Ag Comm Report, Hep Bs Antibody Reactive H, Hep Bs Antibody, Quant 13.74 Microbiology Results 06/01/23 12:49 Blood - Blood Aerobic Blood Culture - Preliminary No growth in 24 hours. 06/01/23 12:49 Blood - Blood Anaerobic Blood Culture - Final 06/01/23 12:28 Blood - Blood Aerobic Blood Culture - Preliminary No growth in 24 hours. 06/01/23 12:28 Blood - Blood Anaerobic Blood Culture - Preliminary No growth in 24 hours. 06/01/23 12:25 Wound - Right Arm Gram Stain - Final 06/01/23 12:25 Wound - Right Arm Culture & Sensitivity - Preliminary 06/01/23 12:42 Clean Catch Urine [place] Count - Preliminary BETWEEN 10,000 & 100,000 CFU/ML 06/01/23 12:42 Clean Catch Urine - Preliminary MIXED MACARIO. Assessment/ Plan: Nephrology No dyspnea No chest pain Fatigue and weakness No acute events overnight Vitals, medications, blood work and imaging reviewed in the chart. General: In no apparent distress, Oriented x3, Cooperative HEENT: Atraumatic Neck: Supple Respiratory: Diminished Cardiovascular: Normal S1 S2, Edema Gastrointestinal: Soft and benign, Non-distended Musculoskeletal: No clubbing, No contractures Integumentary: No rashes, No cyanosis Neurological: Normal speech Laboratory Data (last 24 hrs) 06/01/23 06/01/23 06/01/23 12:28 12:28 12:28 WBC 11.20 H Hgb 12.9 Hct 39.3 Plt Count 148 L PT 15.6 H INR 1.43 APTT 34.6 Sodium 138 Potassium 3.7 BUN 58 H Creatinine 5.22 H Glucose 139 H Total Bilirubin 0.9 AST 7 L ALT < 10 L Alkaline Phosphatase 100 Imagings Data: EXAM DESCRIPTION: CT - Chest Abd Pelvis Wo Con - 06/01/2023 1:26 pm CLINICAL HISTORY: chest pain, abd pain, dialysis COMPARISON: Thorax Wo Con dated 01/02/2023 TECHNIQUE: Thin axial CT images of the chest, abdomen, and pelvis, performed without IV contrast. Multiplanar reformats were generated and reviewed. All CT scans are performed using dose optimization technique as appropriate and may include automated exposure control or mA/KV adjustment according to patient size. FINDINGS: Moderate bilateral layering pleural effusions with underlying dependent atelectasis or airspace opacification. No pneumothorax. Cardiomegaly with at least moderate pericardial effusion. No intrathoracic adenopathy.Left chest wall pacer/ AICD in place. The liver, spleen, pancreas, and adrenal glands are within normal limits. Bilateral atrophic changes of the kidneys. Segmental wall thickening along the sigmoid colon and rectum. Less pronounced wall thickening along the cecum and ascending colon. This is nonspecific. Mild colonic diverticulosis. No bowel obstruction, free air, free fluid or abscess. No pathologic lymphadenopathy in the abdomen or pelvis. Suboptimally distended urinary bladder, which limits evaluation, although with apparent diffuse wall thickening. No worrisome osseous finding. Dense medial calcifications throughout the enlarged and medium-sized vessels. Pronounced body wall edema. Advanced degenerative changes of the upper lumbar spine with levoconvex scoli osis centered at L2. IMPRESSION: Moderate bilateral effusions and pronounced body wall edema. Findings may relate to volume overload. Please correlate clinically. Dependent underlying airspace opacities, indeterminate but favoring atelectasis. Cardiomegaly, with moderate pericardial effusion. Segmental wall thickening of the colon, most pronounced along the sigmoid colon and rectum. Findings may relate to congestion/ third-spacing, however infectious/inflammatory colitis cannot be excluded. Nonspecific apparent diffuse bladder wall thickening, which may relate to nondistention. Possibility of cystitis is not entirely excluded. EXAM DESCRIPTION: Bobbyt Single View06/01/2023 12:07 pm CLINICAL HISTORY: cough COMPARISON: May 30, 2023 FINDINGS: Small to moderate bilateral pleural effusions may be present Bibasilar atelectasis. Mild interstitial pulmonary edema is suspected Heart is markedly enlarged. Pacemaker leads in place Conclusions/Impression: ESRD on HD -HD TIW -Next HD on Monday HTN with CKD/ CHF complicated by episodic hypotension -Midodrine prn Diastolic CHF, A/C -HD with UF -Low sodium diet DM II with CKD -RISS Hypoalbuminemia -Continue Nepro Anemia in CKD -Retacrit PRN CKD MBD -Continue Ergo & Calcitriol -Continue Renvela Spoke to the patient regarding dialysis & hospice. She does not want hospice at this time and wants to continue dialysis. Case reviewed with hospitalist team
[2023-06-03] MEDS: NEPRO SHAKE 237 ML CAN PO SCH ×3 (09:00→20:57)
[2023-06-03] MEDS: CALCITROL 0.25 MCG CAP PO SCH (09:03)
[2023-06-03] MEDS: MULTIVITAMINS,THERAPEUT 1 TAB PO SCH (09:03)
[2023-06-03] MEDS: SEVELAMER CARBONATE 800 MG TABLET PO SCH ×3 (09:03→16:37)
[2023-06-03] MEDS: DOCUSATE NA 100 MG CAP PO SCH ×2 (09:03→20:57)
[2023-06-03] MEDS: CEFEPIME 1 GM in NA CHLORIDE 0.9% 100 ML IV SCH (09:03)
--- NOTE | 2023-06-03 10:12 | P.PN ---
Subjective Date of Service: 06/03/23 Chief Complaint: Chest Pain Flat affect, shortness of breath with exertion improving, no reported fever or cough - Physical Exam General: Alert, Oriented x2, Cooperative, Cachectic, HEENT: Atraumatic, Normocephalic Neck: Supple, No Thyromegaly, No LAD Respiratory: Diminished, Crackles/rales Cardiovascular: Regular rate/rhythm, Normal S1 S2, Edema Capillary refill: <2 Seconds Gastrointestinal: Soft and benign, Non-distended Musculoskeletal: No clubbing, No erythema, Swelling Integumentary: No rashes Neurological: Normal speech, Sensation intact, Normal affect Lymphatics: No axilla or inguinal lymphadenopathy <Asia Lorenz - Last Filed: 06/03/23 13:39> Date of Service: 06/04/23 <Jarrod Leiva - Last Filed: 06/04/23 09:50> Review of Systems per HPI <Asia Lorenz - Last Filed: 06/03/23 13:39> Physical Examination - Vital Signs Temperature: 97.2 F Blood Pressure: 92/44 Pulse: 80 Respirations: 18 Pulse Ox (%): 96 - Studies Microbiology Data (last 24 hrs): 06/01/23 12:25 Wound - Right Arm Gram Stain - Final 06/01/23 12:49 Blood - Blood Anaerobic Blood Culture - Final <Asia Lorenz - Last Filed: 06/03/23 13:39> - Studies Microbiology Data (last 24 hrs): 06/01/23 12:25 Wound - Right Arm Gram Stain - Final 06/01/23 12:25 Wound - Right Arm Culture & Sensitivity - Final Klebsiella Oxytoca <Jarrod Leiva - Last Filed: 06/04/23 09:50> Assessment And Plan - Plan Assessment plan End-stage renal disease on hemodialysis Acute on chronic heart failure from fluid volume overload Elevated BNP Missed dialysis Treatment noncompliance Nephrology consult, resume hemodialysis Resume hemodialysis BNP 93014, BUN 58/5.22, BUN 40/3.90 Acute cystitis Leukocytosis UA greater than 500 leukoesterase Blood cultures, urine cultures, wound cultures ordered pending Cefepime Protein malnutrition Albumin 2.0-1.8 Renal protein shakes added Insulin-dependent diabetes mellitus Resume home insulin, Accu-Cheks, sliding scale insulin GERD resume home PPI Full code renal diet DVT heparin Disposition Home with home health Discharge Plan: Home - Code Status/Comfort Care Code Status: Full Code Critical Care: No Time Spent Managing PTS Care (In Minutes): 35 <Asia Lorenz - Last Filed: 06/03/23 13:39> - Plan Patient was seen and examined. Patient is laying in bed with no new complaints. Assessment/plan: 1. patient with end-stage renal disease on hemodialysis 2. acute on chronic heart failure /fluid overload 3. generalized weakness continue with hemodialysis per Nephrology recommendation. Patient's volume status is stable. Patient's blood pressures been on the low side so we are going to monitor hemodynamics closely. Patient's family states she is not really stable for going home and she is really weak and her is not really able to help her. We are going to go ahead and make plans for transfer to a prison facility. <Jarrod Leiva - Last Filed: 06/04/23 09:50>
[2023-06-03] MEDS ORDERED: ALBUMIN HUMAN 25% 50 ML IV ONE (10:43)
[2023-06-03] MEDS ORDERED: MIDODRINE HCL 5 MG TABLET PO PRN (11:05)
--- NOTE | 2023-06-03 12:26 | P.PN ---
Nephrology Seen on HD, tolerating session, BP briefly trended less than 100 systolic but responded to IV albumin (O) vitals reviewed in the EMR General: Elderly, frail HEENT: Atraumatic, LFNC Neck: Supple Respiratory: Diminished at bases, poor resp effort Cardiovascular: Non tachy, no current edema Gastrointestinal: Soft and benign, Non-distended Musculoskeletal: Muscle mass loss, Rt UE AV access Integumentary: No rashes Neurological: Awake, responds briefly Imagings Data: EXAM DESCRIPTION: CT - Chest Abd Pelvis Wo Con - 06/01/2023 1:26 pm CLINICAL HISTORY: chest pain, abd pain, dialysis COMPARISON: Thorax Wo Con dated 01/02/2023 TECHNIQUE: Thin axial CT images of the chest, abdomen, and pelvis, performed without IV contrast. Multiplanar reformats were generated and reviewed. All CT scans are performed using dose optimization technique as appropriate and may include automated exposure control or mA/KV adjustment according to patient size. FINDINGS: Moderate bilateral layering pleural effusions with underlying dependent atelectasis or airspace opacification. No pneumothorax. Cardiomegaly w ith at least moderate pericardial effusion. No intrathoracic adenopathy.Left chest wall pacer/ AICD in place. The liver, spleen, pancreas, and adrenal glands are within normal limits. Bilateral atrophic changes of the kidneys. Segmental wall thickening along the sigmoid colon and rectum. Less pronounced wall thickening along the cecum and ascending colon. This is nonspecific. Mild colonic diverticulosis. No bowel obstruction, free air, free fluid or abscess. No pathologic lymphadenopathy in the abdomen or pelvis. Suboptimally distended urinary bladder, which limits evaluation, although with apparent diffuse wall thickening. No worrisome osseous finding. Dense medial calcifications throughout the enlarged and medium-sized vessels. Pronounced body wall edema. Advanced degenerative changes of the upper lumbar spine with levoconvex scoliosis centered at L2. IMPRESSION: Moderate bilateral effusions and pronounced body wall edema. Findings may relate to volume overload. Please correlate clinically. Dependent underlying airspace opacities, indeterminate but favoring atelectasis. Cardiomegaly, with moderate pericardial effusion. Segmental wall thickening of the colon, most pronounced along the sigmoid colon and rectum. Findings may relate to congestion/ third-spacing, however infectious/inflammatory colitis cannot be excluded. Nonspecific apparent diffuse bladder wall thickening, which may relate to nondistention. Possibility of cystitis is not entirely excluded. EXAM DESCRIPTION: RADChest Single View06/01/2023 12:07 pm CLINICAL HISTORY: cough COMPARISON: May 30, 2023 FINDINGS: Small to moderate bilateral pleural effusions may be present Bibasilar atelectasis. Mild interstitial pulmonary edema is suspected Heart is markedly enlarged. Pacemaker leads in place Conclusions/Impression: ESRD on HD -Hx of compliance issues. Cont iHD, HD today, stable metab profile HTN with CKD/ CHF complicated by episodic hypotension of HD/other -Midodrine prn Diastolic CHF, A/C -Target 1.5L net UF on HD today
[2023-06-03] MEDS: COENZYME Q10- 200 MG CAP PO SCH (14:46)
[2023-06-03] MEDS ORDERED: METHYLPREDNISOLONE 125 MG INJ IV ONE (17:30)
[2023-06-03] MEDS ORDERED: MIDODRINE HCL 5 MG TABLET PO ONE (18:00)
[2023-06-04] MEDS: NEPRO SHAKE 237 ML CAN PO SCH ×3 (09:00→19:32)
[2023-06-04] MEDS: SEVELAMER CARBONATE 800 MG TABLET PO SCH ×3 (09:32→16:57)
[2023-06-04] MEDS: MULTIVITAMINS,THERAPEUT 1 TAB PO SCH (09:32)
[2023-06-04] MEDS: DRISDOL (VITAMIN D=ERGOCALCIFEROL) 50000 UNIT CAP PO SCH (09:33)
[2023-06-04] MEDS: CEFEPIME 1 GM in NA CHLORIDE 0.9% 100 ML IV SCH (09:33)
[2023-06-04] MEDS: DOCUSATE NA 100 MG CAP PO SCH ×2 (09:33→19:32)
[2023-06-04] MEDS: COENZYME Q10- 200 MG CAP PO SCH (09:33)
[2023-06-04] MEDS: CALCITROL 0.25 MCG CAP PO SCH (09:33)
--- NOTE | 2023-06-04 15:38 | P.PN ---
Subjective Date of Service: 06/04/23 Chief Complaint: Chest Pain , Confused, flat affect, shortness of breath with exertion with exertion no reported fever or cough - Physical Exam General: Alert, Oriented x2, Cooperative, Cachectic, HEENT: Atraumatic, Normocephalic Neck: Supple, No Thyromegaly, No LAD Respiratory: Diminished, poor respiratory effort Cardiovascular: Regular rate/rhythm, Normal S1 S2, Edema Capillary refill: <2 Seconds Gastrointestinal: Soft and benign, Non-distended Musculoskeletal: No clubbing, No erythema, Swelling Integumentary: No rashes Neurological: Normal speech, Sensation intact, Normal affect Lymphatics: No axilla or inguinal lymphadenopathy Review of Systems per HPI Physical Examination - Vital Signs Temperature: 97.8 F Blood Pressure: 112/57 Pulse: 80 Respirations: 16 Pulse Ox (%): 95 - Studies Microbiology Data (last 24 hrs): 06/01/23 12:25 Wound - Right Arm Gram Stain - Final 06/01/23 12:25 Wound - Right Arm Culture & Sensitivity - Final Klebsiella Oxytoca Assessment And Plan - Plan Assessment plan End-stage renal disease on hemodialysis Acute on chronic heart failure from fluid volume overload Elevated BNP Missed dialysis Treatment noncompliance Nephrology consult, resume hemodialysis Resume hemodialysis BNP 54216, missed hemodialysis BUN 58/5.22, BUN 40/3.90 Acute cystitis Leukocytosis improved UA greater than 500 leukoesterase Blood cultures, urine cultures, wound cultures ordered pending Cefepime Protein malnutrition Albumin 2.0-1.8 Renal protein shakes added For appetite Insulin-dependent diabetes mellitus Resume home insulin, Accu-Cheks, sliding scale insulin GERD resume home PPI Full code renal diet DVT heparin Disposition: Patient resides at home will discuss with discharge planning with family and social workers Discharge Plan: Jail - Code Status/Comfort Care Code Status: Full Code Critical Care: No Time Spent Managing PTS Care (In Minutes): 35
[2023-06-05] MEDS: NEPRO SHAKE 237 ML CAN PO SCH ×2 (09:00→14:00)
--- NOTE | 2023-06-05 09:32 | P.PN ---
Date of Service: 06/05/23 Vital Signs Temp Pulse Resp BP Pulse Ox 97.3 F 80 18 119/57 L 98 06/05/23 04:00 06/05/23 04:00 06/05/23 04:40 06/05/23 04:00 06/05/23 04:40 Medications Acetaminophen (Acetaminophen 500 Mg Tab) 500 mg PO Q6H PRN PRN Reason: pain/fever Calcitriol (Calcitrol 0.25 Mcg Cap) 0.5 mcg PO DAILY [facility] Last Admin: 06/04/23 09:33 Dose: 0.5 mcg Coenzyme Q10 (Coenzyme Q10- 200 Mg Cap) 200 mg PO DAILY [facility] Last Admin: 06/04/23 09:33 Dose: 200 mg Docusate Sodium (Docusate Na 100 Mg Cap) 100 mg PO BID [facility] Last Admin: 06/04/23 19:32 Dose: Not Given Enteral Nutritional Formula (Nepro Shake 237 Ml Can) 237 ml PO TID [facility] Last Admin: 06/04/23 19:32 Dose: Not Given Heparin Sodium (Porcine) (Heparin 1,000 Unit/Ml Vial) 2,000 unit IV EVERY HD PRN PRN Reason: Prevent HD lines clotting. Last Admin: 06/03/23 11:20 Dose: 2,000 unit Cefepime HCl 1 gm/ Sodium (Chloride) 100 mls @ 200 mls/hr IV DAILY [facility]; Protocol Last Admin: 06/04/23 09:33 Dose: 100 mls Midodrine (Midodrine Hcl 5 Mg Tablet) 5 mg PO EVERY HD PRN PRN Reason: Titrate to SBP (MUST DEFINE) Morphine Sulfate (Morphine 2 Mg/Ml Syr) 2 mg IV Q4H PRN PRN Reason: ModSevPain Last Admin: 06/05/23 04:10 Dose: 2 mg Ondansetron HCl (Ondansetron 4 Mg/2 Ml Vial) 4 mg IV Q8H PRN PRN Reason: NAUSEA / VOMITING Sevelamer Carbonate (Sevelamer Carbonate 800 Mg Tablet) 800 mg PO TIDWM [facility] Last Admin: 06/04/23 16:57 Dose: Not Given Vitamin B Complex/Vit C/Folic Acid (Multivitamins,Therapeut 1 Tab) 1 tab PO DAILY [facility] Last Admin: 06/04/23 09:32 Dose: 1 tab Microbiology Results 06/01/23 12:42 Clean Catch Urine [place] Count - Preliminary >100,000 CFU/ML. 06/01/23 12:42 Clean Catch Urine - Preliminary 06/01/23 12:25 Wound - Right Arm Gram Stain - Final 06/01/23 12:25 Wound - Right Arm Culture & Sensitivity - Final Klebsiella Oxytoca 06/01/23 12:49 Blood - Blood Aerobic Blood Culture - Preliminary No growth in 24 hours. 06/01/23 12:49 Blood - Blood Anaerobic Blood Culture - Final 06/01/23 12:28 Blood - Blood Aerobic Blood Culture - Preliminary No growth in 24 hours. 06/01/23 12:28 Blood - Blood Anaerobic Blood Culture - Preliminary No growth in 24 hours. Assessment/ Plan: Nephrology No dyspnea No chest pain Fatigue and weakness No acute events overnight Vitals, medications, blood work and imaging reviewed in the chart. General: In no apparent distress, Oriented x3, Cooperative HEENT: Atraumatic Neck: Supple Respiratory: Diminished Cardiovascular: Normal S1 S2, Edema Gastrointestinal: Soft and benign, Non-distended Musculoskeletal: No clubbing, No contractures Integumentary: No rashes, No cyanosis Neurological: Normal speech Laboratory Data (last 24 hrs) 06/01/23 06/01/23 06/01/23 12:28 12:28 12:28 WBC 11.20 H Hgb 12.9 Hct 39.3 Plt Count 148 L PT 15.6 H INR 1.43 APTT 34.6 Sodium 138 Potassium 3.7 BUN 58 H Creatinine 5.22 H Glucose 139 H Total Bilirubin 0.9 AST 7 L ALT < 10 L Alkaline Phosphatase 100 Imagings Data: EXAM DESCRIPTION: CT - Chest Abd Pelvis Wo Con - 06/01/2023 1:26 pm CLINICAL HISTORY: chest pain, abd pain, dialysis COMPARISON: Thorax Wo Con dated 01/02/2023 TECHNIQUE: Thin axial CT images of the chest, abdomen, and pelvis, performed without IV contrast. Multiplanar reformats were generated and reviewed. All CT scans are performed using dose optimization technique as appropriate and may include automated exposure control or mA/KV adjustment according to patient size. FINDINGS: Moderate bilateral layering pleural effusions with underlying dependent atelectasis or airspace opacification. No pneumothorax. Cardiomegaly with at least moderate pericardial effusion. No intrathoracic adenopathy.Left chest wall pacer/ AICD in place. The liver, spleen, pancreas, and adrenal glands are within normal limits. Bilateral atrophic changes of the kidneys. Segmental wall thickening along the sigmoid colon and rectum. Less pronounced wall thickening along the cecum and ascending colon. This is nonspecific. Mild colonic diverticulosis. No bowel obstruction, free air, free fluid or abscess. No pathologic lymphadenopathy in the abdomen or pelvis. Suboptimally distended urinary bladder, which limits evaluation, although with apparent diffuse wall thickening. No worrisome osseous finding. Dense medial calcifications throughout the enlarged and medium-sized vessels. Pronounced body wall edema. Advanced degenerative changes of the upper lumbar spine with levoconvex scoliosis centered at L2. IMPRESSION: Moderate bilateral effusions and pronounced body wall edema. Findings may relate to volume overload. Please correlate clinically. Dependent underlying airspace opacities, indeterminate but favoring atelectasis. Cardiomegaly, with moderate pericardial effusion. Segmental wall thickening of the colon, most pronounced along the sigmoid colon and rectum. Findings may relate to congestion/ third-spacing, however infectious/inflammatory colitis cannot be excluded. Nonspecific apparent diffuse bladder wall thickening, which may relate to nondistention. Possibility of cystitis is not entirely excluded. EXAM DESCRIPTION: Bobbyt Single View06/01/2023 12:07 pm CLINICAL HISTORY: cough COMPARISON: May 30, 2023 FINDINGS: Small to moderate bilateral pleural effusions may be present Bibasilar atelectasis. Mild interstitial pulmonary edema is suspected Heart is markedly enlarged. Pacemaker leads in place Conclusions/Impression: ESRD on HD -HD TIW HTN with CKD/ CHF complicated by episodic hypotension -Midodrine prn Diastolic CHF, A/C -HD with UF -Low sodium diet DM II with CKD -RISS Hypoalbuminemia -Continue Nepro Anemia in CKD -Retacrit PRN CKD MBD -Continue Calcitriol -Continue Renfatimah Spoke to the patient regarding dialysis & hospice. She does not want hospice at this time and wants to continue dialysis. Case reviewed with hospitalist team
[2023-06-05 10:01] VITALS: O2SAT 96
[2023-06-05] MEDS: DOCUSATE NA 100 MG CAP PO SCH (11:08)
[2023-06-05] MEDS: SEVELAMER CARBONATE 800 MG TABLET PO SCH ×3 (11:08→17:00)
[2023-06-05] MEDS: CALCITROL 0.25 MCG CAP PO SCH (11:08)
[2023-06-05] MEDS: MULTIVITAMINS,THERAPEUT 1 TAB PO SCH (11:09)
[2023-06-05] MEDS: CEFEPIME 1 GM in NA CHLORIDE 0.9% 100 ML IV SCH (11:09)
[2023-06-05] MEDS: COENZYME Q10- 200 MG CAP PO SCH (11:09)
--- NOTE | 2023-06-05 11:32 | P.PN ---
Subjective Date of Service: 06/05/23 Chief Complaint: Patient noted to be somnolent. Unable to questions appropriately. Subjective: No new changes Review of Systems is unable to be obtained (Patient not responding appropriately to verbal commands. Appears somnolent) Physical Examination - Vital Signs Temperature: 97.3 F Blood Pressure: 119/57 Pulse: 80 Respirations: 18 Pulse Ox (%): 98 - Physical Exam General: Alert, Oriented x2, Cooperative, Other (Somnolent) HEENT: Atraumatic, PERRLA, EOMI Neck: Supple, JVD not distended Respiratory: Normal air movement, Diminished Cardiovascular: Regular rate/rhythm, Normal S1 S2 Capillary refill: <2 Seconds Gastrointestinal: Normal bowel sounds, Soft and benign, No tenderness Musculoskeletal: No clubbing, No tenderness Integumentary: No rashes, No significant lesion Neurological: Normal tone, Abnormal affect Lymphatics: No axilla or inguinal lymphadenopathy - Studies Microbiology Data (last 24 hrs): 06/01/23 12:25 Wound - Right Arm Gram Stain - Final 06/01/23 12:25 Wound - Right Arm Culture & Sensitivity - Final Klebsiella Oxytoca Assessment And Plan - Plan Interval history. 06/05/2023. Patient seen at bedside. Patient appears somnolent and unable to respond to commands appropriately. Patient continues to decline hospice. Patient's appetite has been very poor. Continue dialysis per clerk general office's recommendations. Klebsiella oxytoca noted on right ankle wound culture. Sensitive to cefepime. Continue IV cefepime. Continue supportive care. End-stage renal disease on hemodialysis Acute on chronic heart failure from fluid volume overload Elevated BNP Missed dialysis Treatment noncompliance Nephrology consult, resume hemodialysis Resume hemodialysis BNP 58134, missed hemodialysis BUN 58/5.22, BUN 40/3.90 Acute cystitis Leukocytosis improved UA greater than 500 leukoesterase Blood cultures, urine cultures, wound cultures ordered pending Cefepime Protein malnutrition Albumin 2.0-1.8 Renal protein shakes added For appetite Insulin-dependent diabetes mellitus Resume home insulin, Accu-Cheks, sliding scale insulin GERD resume home PPI Full code renal diet DVT heparin Discharge Plan: Long-Term - Code Status/Comfort Care Code Status Assessed: Yes Physician Review: Patient Assessed, Agree with Above Assessment and Plan Critical Care: No
[2023-06-05 18:42] VITALS: BP 120/59; TEMP 98
--- NOTE | 2023-06-12 17:26 | EKG ---
Test Date: 2023-06-01 Test Time: 12:20:01 Paver Layer: KAMILA MEASUREMENT RESULTS: Intervals: Rate: 80 AR: QRSD: 148 QT: 444 QTc: 512 [place]: P: AR: QRS: -76 T: 93 INTERPRETIVE STATEMENTS: Atrial flutter Right bundle branch block Left anterior fascicular block Bifascicular block Lateral infarct, age undetermined Inferior infarct, age undetermined Abnormal ECG Compared to ECG 05/28/2023 18:41:28 Left anterior fascicular block now present Bifascicular block now present Uncertain supraventricular rhythm no longer present Left-axis deviation no longer present Myocardial infarct finding still present Electronically Signed On 06-12-23 17:01:56 RESTAURANT RECRUITER by Lico Wilkins
== END 2023-06-05 18:45 | DRG 291 ==
LOC: ER 11:37 → 4TH 15:26
PROVIDERS: ADMIT Hospitalist; ATTEND Hospitalist
PROC: 5A1D70Z Performance of Urinary Filtration, Intermittent, Less than 6 Hours Per Day (ICD-10-PCS; principal; 2023-06-03)
DX: I13.2 Hypertensive heart and chronic kidney disease with heart failure and with stage 5 chronic kidney disease, or end stage renal disease (principal); E43 Unspecified severe protein-calorie malnutrition; I50.33 Acute on chronic diastolic (congestive) heart failure; N18.6 End stage renal disease; L03.113 Cellulitis of right upper limb; R64 Cachexia; N30.00 Acute cystitis without hematuria; E11.22 Type 2 diabetes mellitus with diabetic chronic kidney disease; D63.1 Anemia in chronic kidney disease; L89.152 Pressure ulcer of sacral region, stage 2; L89.321 Pressure ulcer of left buttock, stage 1; E88.09 Other disorders of plasma-protein metabolism, not elsewhere classified; K21.9 Gastro-esophageal reflux disease without esophagitis; E78.5 Hyperlipidemia, unspecified; J44.9 Chronic obstructive pulmonary disease, unspecified; Z99.2 Dependence on renal dialysis; Z79.4 Long term (current) use of insulin; Z88.5 Allergy status to narcotic agent; Z68.25 Body mass index [BMI] 25.0-25.9, adult; Z79.52 Long term (current) use of systemic steroids; Z79.01 Long term (current) use of anticoagulants; Z79.899 Other long term (current) drug therapy; Z90.710 Acquired absence of both cervix and uterus; Z86.718 Personal history of other venous thrombosis and embolism; Z86.711 Personal history of pulmonary embolism; Z95.810 Presence of automatic (implantable) cardiac defibrillator
CPT/HCPCS: 36415; 71045; 71250; 74176; 80053; 81001; 82947; 83605; 83735; 83880; 84100; 85025; 85610; 85730; 86706; 87040; 87070; 87077; 87086; 87088; 87186; 87205; 87340; 90935; 93005; 96374; 99285; J0692; J0696; J1644; J2270; J2930; P9047

== ENCOUNTER 2023-06-07 11:37 | Inpatient (IN) | payer OTHER ==
[2023-06-07] MEDS ORDERED: ACETAMINOPHEN 650MG/RECT SUPP PR ONE (12:00)
[2023-06-07 12:15] LABS: Absolute Lymphocytes (CBC) 1.1 K/uL (0.7-4.9); Hematocrit 41.9 % (36.0-45.0); Lymphocytes % 4.8 % (15.3-44.8); MCV 89.5 fL (80-100); MPV 9.1 fL (7.6-11.3); Platelets 83 thou/uL (152-406); RBC Red Blood Cell Count 4.68 M/uL (3.86-4.86)
[2023-06-07] MEDS ORDERED: NA CHLORIDE 0.9% 500 ML ONE (12:19)
[2023-06-07 12:22] LABS: Protime INR 1.87
[2023-06-07 12:29] LABS: AST/SGOT 12 U/L (15-37); Albumin 1.7 g/dL (3.4-5.0); Alkaline Phosphatase 93 U/L (45-117); BUN Blood Urea Nitrogen 44 mg/dL (7-18); Bicarbonate 24 mEq/L (21-32); Bilirubin Total 1.1 mg/dL (0.2-1.0); Glomerular Filtration Rate 11 ml/min (=/>90); Glucose Level 87 mg/dL (74-106); Potassium 4.4 mEq/L (3.5-5.1); Protein, Total 5.8 g/dL (6.4-8.2); Sodium Level 139 mEq/L (136-145)
[2023-06-07 12:34] LABS: SARS-CoV-2 Antigen Rapid Res Positive (Negative)
[2023-06-07 12:38] LABS: ALT/SGPT < 10 U/L (13-56)
--- NOTE | 2023-06-07 12:42 | RAD REPORT ---
EXAM DESCRIPTION: CT - Head Brain Wo Cont - 06/07/2023 12:34 pm CLINICAL HISTORY: AMS Headache, drowsiness COMPARISON: <Comparisons> TECHNIQUE: All CT scans are performed using dose optimization technique as appropriate and may inclu de automated exposure control or mA/KV adjustment according to patient size. FINDINGS: No intracranial hemorrhage, hydrocephalus or extra-axial fluid collection.Mild generalized brain atrophy is present with mild periventricular and deep white matter chronic microvascular ische beau changes.No areas of brain edema or evidence of midline shift. The paranasal sinuses and mastoids are clear. The calvarium is intact. Mild vertebral atherosclerosis . IMPRESSION: No acute intracranial abnormality.
[2023-06-07] MEDS ORDERED: CEFTRIAXONE 1000 MG/VIAL ONE (12:47)
[2023-06-07] MEDS ORDERED: NA CHLORIDE 0.9% 50 ML ONE (12:47)
--- NOTE | 2023-06-07 12:52 | EDPHYS ---
Physician Documentation [facility] Name: Latricia Cadet Age: 72 yrs Sex: Female : 1950 Arrival Date: 06/07/2023 Time: 11:37 Bed 3 Private MD: ED Physician Nicho Ellison HPI: 06/07 12:45 This 72 yrs old Female presents to ER via EMS with complaints of AMS, fever. rn 12:45 The patient reports fever, that was measured at 104 degrees Fahrenheit. Onset: The rn symptoms/episode began/occurred at an unknown time. Modifying factors: there are no obvious modifying factors. Associated signs and symptoms: Pertinent positives: altered mental status,\E\. Severity of symptoms: At their worst the symptoms were moderate in the emergency department the symptoms are unchanged. Unable to obtain HPI due to altered mental status. The patient has experienced similar episodes in the past. EMS reports brought in from dialysis, some dialysis performed but unknown how much. Had a 104 temperature and altered mental status with difficult to arouse at dialysis. Patient with multiple recent admissions and seems much worse to me this time. Hospice has been discussed in the past but her member and family not being on board last admission.. Historical: - Allergies: 12:01 Codeine; ph - PMHx: 12:01 angina pectoris; dialysis T; Sleep Apnea; Rheumatoid Arthritis; CHF; COPD; Diabetes - ph NIDDM; heart attack; Hypertension; insomnia; kidney disease; - PSHx: 12:01 HD Fistula - Right arm; hysterectomy; pacemaker; ph - Immunization history:: Adult Immunizations up to date. - Social history:: Smoking status: unknown. - Family history:: not pertinent. - Hospitalizations: : The patient was recently seen at [facility]. - History obtained from: EMS. ROS: 12:45 Unable to obtain ROS due to altered mental status, rn Exam: 12:45 Constitutional: Patient lethargic, moans and groans to painful stimuli. Head/Face: rn Normocephalic, atraumatic. ENT: Dry mucous membranes, no stridor Cardiovascular: Tachycardic, regular. Respiratory: Moderate tachypnea. No wheezing Abdomen/GI: Soft, nontender MS/ Extremity: Pulses equal, no cyanosis. Right arm cellulitis noted last admission seems to be improved. Neuro: Lethargic, responds to painful stimuli. Vital Signs: 11:57 BP 140 / 34; Pulse 80; Resp 25; Temp 103.3(Ca); Pulse Ox 95% on 4 lpm NC; Weight 56.7 ph kg; 12:18 BP 122 / 25; Pulse 85; Resp 24; Temp 106(Ca); Pulse Ox 95% on 4 lpm NC; ph 12:26 BP 126 / 40; Pulse 80; Resp 26; Temp 105.9(Ca); Pulse Ox 94% on 4 lpm NC; ph 12:39 BP 86 / 22; Pulse 80; Resp 26; Temp 105.5(Ca); Pulse Ox 98% on 4 lpm NC; ph 13:09 BP 94 / 21; Pulse 80; Resp 25; Temp 104.0(Ca); Pulse Ox 100% on 4 lpm NC; ph 13:19 Temp 103.6(Ca); ph 14:02 BP 100 / 33; Pulse 101; Resp 24; Temp 101.5(Ca); Pulse Ox 99% on 4 lpm NC; ph 14:27 BP 114 / 20; Pulse 80; Resp 22; Temp 101(Ca); Pulse Ox 98% on 2 lpm NC; ph 15:00 BP 140 / 67; Pulse 80; Resp 18; Temp 100.8; Pulse Ox 99% on 4 lpm NC; ph 15:30 BP 119 / 59; Pulse 80; Resp 18; Temp 100.8; Pulse Ox 99% on 2 lpm NC; ph 16:00 BP 114 / 56; Pulse 80; Resp 18; Temp 100.6; Pulse Ox 100% on 4 lpm NC; ph 16:30 BP 116 / 60; Pulse 80; Resp 20; Temp 100.5; Pulse Ox 99% on 2 lpm NC; ph 17:00 BP 117 / 59; Pulse 79; Resp 20; Temp 100.3(Ca); Pulse Ox 100% on 4 lpm NC; ph 17:30 BP 120 / 57; Pulse 80; Resp 22; Temp 100.1; Pulse Ox 100% on 4 lpm NC; ph 18:00 BP 119 / 61; Pulse 80; Resp 16; Temp 99.7(Ca); Pulse Ox 100% on 4 lpm NC; ph 18:30 BP 119 / 61; Pulse 80; Resp 18; Temp 99.7; Pulse Ox 100% on 4 lpm NC; ph 19:00 BP 119 / 59; Pulse 80; Resp 18; Temp 99.6(Ca); Pulse Ox 100% on 4 lpm NC; ph Huyen Coma Score: 14:27 Eye Response: to pain(2). Motor Response: withdraws from pain(4). Verbal Response: ph incomprehensible(2). Total: 8. Procedures: 13:51 Central Line: the site was prepped with Betadine, in sterile fashion, a triple lumen rn catheter was inserted, in the right femoral vein, in 1 attempts. placement was verified, by blood return, the site was dressed with Tegaderm, using sterile technique, the patient tolerated the procedure, well. MDM: 11:41 Patient medically screened. rn 12:45 Differential diagnosis: viral Infection, bacterial infection, URI, pneumonia UTI. Data rn reviewed: vital signs, nurses notes, lab test result(s), radiologic studies, CT scan, and as a result, I will admit patient. Consideration of Admission/Observation Patient was admitted/placed on observation. Escalation of care including admission/observation considered. Management of patient was discussed with the following: Hospitalist: Will come and evaluate patient. Counseling: I had a detailed discussion with the patient and/or guardian regarding the historical points, exam findings, and any diagnostic results supporting the discharge/admit diagnosis, lab results, radiology results, the need for further work-up and treatment in the hospital. Response to treatment: There is no appreciated change of the patient's symptoms at this time, and as a result, I will admit patient. 12:45 ED course: Patient with severe sepsis, source at this time seems viral with COVID rn positive and flu positive. Cellulitis that was noted last admission seems improved and does not seem to be a source at this time. Empiric antibiotics administered. Blood cultures and lactate sent. Patient will be admitted to hospital service for further care. Dr. Leiva is going to discuss with and family to determine CODE STATUS as patient appears much worse than previous visits.. 13:51 ED course: Patient given 1.5 L normal saline bolus, due to concern for volume overload rn and dialysis status with unclear amount of volume removed today in dialysis decision made to place central line and start vasopressor due to lack of response to fluid resuscitation. Started norepinephrine and blood pressure is improving. Sepsis reevaluation complete.. 14:34 ED course: Blood pressure with good response to norepinephrine, currently 121/22. rn Sepsis reevaluation complete. 15:33 ED course: Blood pressure continues to improve. Blood pressure currently 137/61.. rn 06/07 11:42 Order name: Blood Culture Adult (2) rn 06/07 11:42 Order name: CBC with Diff; Complete Time: 13:36 rn 06/07 11:42 Order name: CMP; Complete Time: 12:42 rn 06/07 11:42 Order name: Lactate w/ 2H reflex if indic.; Complete Time: 12:42 rn 06/07 11:42 Order name: Protime (+inr); Complete Time: 12:38 rn 06/07 11:42 Order name: Ptt, Activated; Complete Time: 12:38 rn 06/07 11:42 Order name: Urinalysis w/ reflexes rn 06/07 11:42 Order name: SARS RAPID; Complete Time: 12:38 rn 06/07 11:42 Order name: Flu; Complete Time: 12:38 rn 06/07 12:54 Order name: Manual Differential; Complete Time: 13:36 EDMS 06/07 14:09 Order name: NT PRO-BNP EDMS 06/07 14:19 Order name: Magnesium EDMS 06/07 14:19 Order name: Phosphorus EDMS 06/07 14:19 Order name: Protime (+INR) EDMS 06/07 14:19 Order name: Basic Metabolic Panel EDMS 06/07 14:19 Order name: Basic Metabolic Panel EDMS 06/07 14:19 Order name: Basic Metabolic Panel EDMS 06/07 14:19 Order name: Basic Metabolic Panel EDMS 06/07 14:19 Order name: CBC with Automated Diff EDMS 06/07 14:19 Order name: CBC with Automated Diff EDMS 06/07 14:19 Order name: CBC with Automated Diff EDMS 06/07 14:19 Order name: CBC with Automated Diff EDMS 06/07 14:19 Order name: NT PRO-BNP EDMS 06/07 14:19 Order name: NT PRO-BNP EDMS 06/08 04:28 Order name: Manual Differential EDMS 06/07 11:42 Order name: Chest Single View XRAY; Complete Time: 13:36 rn 06/07 12:05 Order name: CT Head Brain wo Cont; Complete Time: 13:36 rn 06/07 11:42 Order name: EKG; Complete Time: 11:43 rn 06/07 11:42 Order name: Accucheck; Complete Time: 13:19 rn 06/07 11:42 Order name: Cardiac monitoring; Complete Time: 11:57 rn 06/07 11:42 Order name: Cath; Complete Time: 11:57 rn 06/07 11:42 Order name: EKG - Nurse/Tech; Complete Time: 14:00 rn 06/07 11:42 Order name: IV Saline Lock - Large Bore; Complete Time: 11:57 rn 06/07 11:42 Order name: Labs collected and sent; Complete Time: 11:57 rn 06/07 11:42 Order name: O2 Per Protocol; Complete Time: 11:57 rn 06/07 11:42 Order name: O2 Sat Monitoring; Complete Time: 11:57 rn 06/07 11:42 Order name: Vital Signs; Complete Time: 11:57 rn Administered Medications: 12:10 Drug: Acetaminophen NJ Suppository 650 mg NJ once Route: NJ; ph 12:26 Drug: NS 0.9% IV 500 ml IV at bolus once Route: IV; Rate: bolus; Site: left upper arm; ph 13:08 Drug: Rocephin IV 1 grams IV at calculated rate once; Given slow IV push per pharmacy ph instructions Route: IV; Rate: calculated rate; Site: left upper arm; 13:08 Drug: NS 0.9% IV 1000 ml IV at 1000 ml once Route: IV; Rate: 1000 ml; Site: left upper ph arm; 14:00 Drug: Norepinephrine IV 0.1 mcg/kg/min IV at calculated rate Per protocol; (Standard ph concentration 4 mg / 250 mL D5W); Recommended max rate 3 mcg/kg/min; Titrate 0.05 mcg/kg/min as often as every 5 minutes to achieve goal (see titration policy); Goal parameter MAP greater than 65 mmHg. {Note: weight entered into pump as 55 kg.} Route: IV; Rate: calculated rate; Site: right femoral; 14:27 Follow up: Rate change 0.2 mcg/kg/min ph 15:28 Follow up: Rate change 0.1 mcg/kg/min ph Disposition Summary: 06/07/23 12:51 Hospitalization Ordered Notes: Hospitalization Status: Inpatient Admission rn Provider: Jarrod Leiva rn Condition: Stable rn Problem: new rn Symptoms: are unchanged rn Bed/Room Type: Standard rn Location: Intensive Care Unit(06/08/23 04:22) Room Assignment: 3-(06/08/23 04:22) Diagnosis - SARS-associated coronavirus as the cause of diseases classified elsewhere rn - Influenza due to other identified influenza virus with other respiratory rn manifestations - Altered mental status, unspecified rn - Severe sepsis with septic shock rn Forms: - Medication Reconciliation Form rn - SBAR form rn - Leadership Thank You Letter product management intern time excluding procedures: 12:45 Critical care time: Bedside Care: 30 minutes, Consultation: 5 minutes. Total time: 35 rn minutes Signatures: Dispatcher [employer] Beth Damon RN Nicho Michael MD MD rn Hall, Patricia, RN RN ph Corrections: (The following items were deleted from the chart) 12:01 12:01 PMHx: dialysis T; ph ph 15:56 12:51 Severe sepsis without septic shock - Viral source rn rn 21:23 12:51 Intensive Care Unit rn kl 21:23 12:51 rn kl 21:23 21:23 kl kl 06/08 04:22 06/07 21:23 [facility] kl 06/08 04:22 06/07 21:23 [facility]
--- NOTE | 2023-06-07 12:52 | ER ---
Nurse's Notes [facility] Name: Latricia Cadet Age: 72 yrs Sex: Female : 1950 Arrival Date: 06/07/2023 Time: 11:37 Bed 3 Private MD: Diagnosis: SARS-associated coronavirus as the cause of diseases classified elsewhere;Influenza due to other identified influenza virus with other respiratory manifestations;Altered mental status, unspecified;Severe sepsis with septic shock Presentation: 06/07 12:02 Coronavirus screen: Vaccine status: Patient reports receiving the 2nd dose of the covid ph vaccine. Client denies travel out of the [place] in the last 14 days. Ebola Screen: Patient denies travel to an Ebola-affected area in the 21 days before illness onset. No symptoms or risks identified at this time. Initial Sepsis Screen: Does the patient meet any 2 criteria? RR > 20 per min. Temp <36.0*C (96.8*F)) or > 38.3*C (100.9*F). Altered Mental Status. Yes Does the patient have a suspected source of infection? No. Patient's initial sepsis screen is negative. If YES to both, name of provider notified: Nicho Ellison MD. Risk Assessment: Do you want to hurt yourself or someone else? Patient reports no desire to harm self or others. Onset of symptoms was June 07, 2023. 12:02 Method Of Arrival: EMS: [facility] ph 12:02 Acuity: JAKE 2 ph 12:02 Chief complaint: EMS states: Pt from dialysis, c/o fever, AMS and low BP, BP for EMS ph 70s/30s, temp 102, HR 80s paced, BGL 86, pt minimally responsive, normally A\T\O x 4, currently being treated for infected wound and UTI. Triage Assessment: 12:00 General: Appears unkempt, Behavior is unresponsive. Pain: Unable to use pain scale. ph Patient is unresponsive. Neuro: Level of Consciousness is lethargic, listless, Oriented to none. Cardiovascular: Capillary refill < 3 seconds in bilateral fingers Rhythm is Respiratory: Airway is patent Respiratory effort is labored, shallow, Respiratory pattern is tachypnea. GI: No signs and/or symptoms were reported involving the gastrointestinal system. Derm: Skin is pale, Skin temperature is hot Wound noted dorsal aspect of right forearm. Derm: Decubitus located on sacrum is stage II. Historical: - Allergies: 12:01 Codeine; ph - PMHx: 12:01 angina pectoris; dialysis T; Sleep Apnea; Rheumatoid Arthritis; CHF; COPD; Diabetes - ph NIDDM; heart attack; Hypertension; insomnia; kidney disease; - PSHx: 12:01 HD Fistula - Right arm; hysterectomy; pacemaker; ph - Immunization history:: Adult Immunizations up to date. - Social history:: Smoking status: unknown. - Family history:: not pertinent. - Hospitalizations: : The patient was recently seen at [facility]. - History obtained from: EMS. Screenin:03 [facility] ED Fall Risk Assessment (Adult) History of falling in the last 3 months, ph including since admission Yes- single mechanical fall (1 pt) Confusion or Disorientation Yes (5 pts) Intoxicated or Sedated No (0 pts) Impaired Gait Yes (1 pt) Mobility Assist Device Used Yes (1 pt) Altered Elimination Yes (1 pt) Score/Fall Risk Level 3 or more points = High Risk Oriented to surroundings, Maintained a safe environment, Hourly rounding (assess needs \T\ fall precautionary measures) done. Abuse screen: Denies threats or abuse. Denies injuries from another. Nutritional screening: No deficits noted. Tuberculosis screening: No symptoms or risk factors identified. Assessment: 12:20 Reassessment: Ice packs placed bilateral groin, bilateral axilla, and back of neck. ph 12:27 Reassessment:. ph 12:29 Reassessment: Pt taken to CT via stretcher. ph 12:39 General: SEE TRIAGE ASSESSMENT. ph 13:09 Reassessment: Patient appears in no apparent distress at this time. No changes from ph previously documented assessment. Core temp decreased to 104.0, BP dropped to 90s/20, ERP aware see MAR for orders. 13:35 Reassessment: ERP notified of continuing low BP readings, see vitals, preparing for ph central line placement. Vital Signs: 11:57 BP 140 / 34; Pulse 80; Resp 25; Temp 103.3(Ca); Pulse Ox 95% on 4 lpm NC; Weight 56.7 ph kg; 12:18 BP 122 / 25; Pulse 85; Resp 24; Temp 106(Ca); Pulse Ox 95% on 4 lpm NC; ph 12:26 BP 126 / 40; Pulse 80; Resp 26; Temp 105.9(Ca); Pulse Ox 94% on 4 lpm NC; ph 12:39 BP 86 / 22; Pulse 80; Resp 26; Temp 105.5(Ca); Pulse Ox 98% on 4 lpm NC; ph 13:09 BP 94 / 21; Pulse 80; Resp 25; Temp 104.0(Ca); Pulse Ox 100% on 4 lpm NC; ph 13:19 Temp 103.6(Ca); ph 14:02 BP 100 / 33; Pulse 101; Resp 24; Temp 101.5(Ca); Pulse Ox 99% on 4 lpm NC; ph 14:27 BP 114 / 20; Pulse 80; Resp 22; Temp 101(Ca); Pulse Ox 98% on 2 lpm NC; ph 15:00 BP 140 / 67; Pulse 80; Resp 18; Temp 100.8; Pulse Ox 99% on 4 lpm NC; ph 15:30 BP 119 / 59; Pulse 80; Resp 18; Temp 100.8; Pulse Ox 99% on 2 lpm NC; ph 16:00 BP 114 / 56; Pulse 80; Resp 18; Temp 100.6; Pulse Ox 100% on 4 lpm NC; ph 16:30 BP 116 / 60; Pulse 80; Resp 20; Temp 100.5; Pulse Ox 99% on 2 lpm NC; ph 17:00 BP 117 / 59; Pulse 79; Resp 20; Temp 100.3(Ca); Pulse Ox 100% on 4 lpm NC; ph 17:30 BP 120 / 57; Pulse 80; Resp 22; Temp 100.1; Pulse Ox 100% on 4 lpm NC; ph 18:00 BP 119 / 61; Pulse 80; Resp 16; Temp 99.7(Ca); Pulse Ox 100% on 4 lpm NC; ph 18:30 BP 119 / 61; Pulse 80; Resp 18; Temp 99.7; Pulse Ox 100% on 4 lpm NC; ph 19:00 BP 119 / 59; Pulse 80; Resp 18; Temp 99.6(Ca); Pulse Ox 100% on 4 lpm NC; ph Clinton Coma Score: 14:27 Eye Response: to pain(2). Motor Response: withdraws from pain(4). Verbal Response: ph incomprehensible(2). Total: 8. ED Course: 11:41 Patient arrived in ED. rn 11:41 Nicho Ellison MD is Attending Physician. rn 11:50 Cheatham cath inserted, using sterile technique, 16 Fr., by me, balloon inflated, to ph gravity drainage, other Criticore Cheatham inserted for temperature monitoring. Oxygen administration via nasal cannula \T\ 4L/min. 12:02 Triage completed. ph 12:02 Arm band placed on Patient placed in an exam room, on a stretcher, on oxygen, on ph residential monitor, on pulse oximetry. 12:02 Initial lab(s) drawn, by me, sent to lab. Inserted saline lock: 22 gauge in left ,using ph aseptic technique. Left shoulder Blood collected. 12:29 Patient has correct armband on for positive identification. Placed in gown. Bed in low ph position. Side rails up X2. Client placed on continuous cardiac and pulse oximetry monitoring. NIBP monitoring applied. 12:35 CT Head Brain wo Cont In Process Unspecified. EDMS 12:41 Angelita Diamond, RN is Primary Nurse. ph 12:50 Jarrod Leiva MD is Hospitalizing Provider. rn 13:09 Chest Single View XRAY In Process Unspecified. EDMS 13:50 Assisted provider with central line placement. Set up central line tray. Triple lumen ph line placed in right femoral. Line placed by Nicho Ellison MD Placement verified by blood return, Dressed with Tegaderm, Patient tolerated well. Before procedure, did Practitioner(s) obtain informed consent? No. Patient \T\ family education about procedure, CLABSI prevention and S/S of infection? No. Time-out/Briefing performed prior to start of procedure? Yes. Was handwashing/sanitizing done immediately prior to procedure? Yes. Was patient positioned to in a way to prevent air embolism? Yes. Was procedure site sterilized? Yes, with chlorhexidine. Was the site allowed to dry? Yes. Was local anesthetic and/or sedation utilized? Yes. During the procedure, did the Practitioner(s) maintain a sterile field? Yes. Were unused ports clamped during insertion? Yes. Was a 2nd qualified MD obtained after 3 unsuccessful insertion attempts? N/A. Was blood aspirated from each lumen? Yes. After the procedure, did the Practitioner(s) clean the site and apply a sterile dressing? Yes. 19:37 Patient admitted, IV remains in place. ph 06/08 05:23 Provided Education on: need for admit . ha1 Administered Medications: 06/07 12:10 Drug: Acetaminophen MO Suppository 650 mg MO once Route: MO; ph 12:26 Drug: NS 0.9% IV 500 ml IV at bolus once Route: IV; Rate: bolus; Site: left upper arm; ph 13:08 Drug: Rocephin IV 1 grams IV at calculated rate once; Given slow IV push per pharmacy ph instructions Route: IV; Rate: calculated rate; Site: left upper arm; 13:08 Drug: NS 0.9% IV 1000 ml IV at 1000 ml once Route: IV; Rate: 1000 ml; Site: left upper ph arm; 14:00 Drug: Norepinephrine IV 0.1 mcg/kg/min IV at calculated rate Per protocol; (Standard ph concentration 4 mg / 250 mL D5W); Recommended max rate 3 mcg/kg/min; Titrate 0.05 mcg/kg/min as often as every 5 minutes to achieve goal (see titration policy); Goal parameter MAP greater than 65 mmHg. {Note: weight entered into pump as 55 kg.} Route: IV; Rate: calculated rate; Site: right femoral; 14:27 Follow up: Rate change 0.2 mcg/kg/min ph 15:28 Follow up: Rate change 0.1 mcg/kg/min ph Medication: 12:39 VIS not applicable for this client. ph Outcome: 12:51 Decision to Hospitalize by Provider. rn 19:37 Admitted to ER Hold. Please see [facility] for further documentation. ph 19:37 Condition: stable 06/08 05:24 Patient left the ED. ha1 Signatures: Dispatcher [employer] EDNicho Ibrahim MD MD rn Hall, Patricia, RN RN ph Ayala, Heidy, RN RN ha1 Corrections: (The following items were deleted from the chart) 06/07 12:01 12:01 PMHx: dialysis T; ph ph
[2023-06-07 12:53] LABS: Hypersegmented Neutrophils PRESENT; Platelet Estimate DECR
[2023-06-07 12:54] LABS: Blood Morphology Comment NOT SEEN (NOT SEEN); Toxic Granulation NOTED
--- NOTE | 2023-06-07 13:16 | RAD REPORT ---
EXAM DESCRIPTION: RAD - Chest Single View - 06/07/2023 1:08 pm CLINICAL HISTORY: FEVER Chest pain. COMPARISON: <Comparisons> FINDINGS: Portable technique limits examination quality. Moderate pulmonary edema suspected with small bilateral pleural effusions. The heart is significantly enlarged with multilead pacer device present. No displaced fractures. IMPRESSION: Moderate CHF versus volume overload pattern.
[2023-06-07 13:45] LABS: Specific Gravity 1.011 (1.005-1.030); Urine Bacteria 20-50 /HPF (<20); Urine Bilirubin NEGATIVE (Negative); Urine Blood 2+ (Negative); Urine Clarity Extremely Turbid (Clear); Urine Color Dark-Brown (Yellow); Urine Glucose NEGATIVE (Negative); Urine Mucus 4+ /HPF (None Seen); Urine Protein 2+ (Negative); Urine RBC >50 /HPF (None Seen); Urine Urobilinogen Normal (Normal); Urine WBC Clump Many /HPF (None Seen); Urine pH 6.5 (5.0-7.0)
[2023-06-07] MEDS ORDERED: NOREPINEPHRINE BITARTRATE/D5W 4 MG/250 ML BAG IV ONE ×2 (13:47→23:48)
[2023-06-07] MEDS ORDERED: ACETAMINOPHEN 650MG/RECT SUPP PR PRN (14:11)
[2023-06-07] MEDS ORDERED: ONDANSETRON 4 MG/2 ML VIAL IV PRN (14:17)
[2023-06-07] MEDS ORDERED: VANCOMYCIN 1 GM in NA CHLORIDE 0.9% 250 ML IVPB SCH (14:20)
[2023-06-07] MEDS ORDERED: SODIUM CHLORIDE 0.9% 10ML INJ IV PRN (14:24)
[2023-06-07] MEDS ORDERED: D10W 250 ML BAG IV PRN (14:27)
[2023-06-07] MEDS ORDERED: GLUCAGON 1 MG/VIAL IM PRN (14:27)
--- NOTE | 2023-06-07 14:30 | P.HP ---
Certification for Inpatient Patient admitted to: Inpatient With expected LOS: >2 Midnights Patient will require the following post-hospital care: None Practitioner: I am a practitioner with admitting privileges, knowledge of patient current condition, hospital course, and medical plan of care. Services: Services provided to patient in accordance with Admission requirements found in Title 42 Section 412.3 of the Code of Federal Regulations <Carola Yoon - Last Filed: 06/07/23 15:28> Patient History Date of Service: 06/07/23 Reason for admission: Altered mental status, sepsis History of Present Illness: Patient is a 72-year-old female with a past medical history significant for COPD, DM 2, ESRD, [place], hypertension, insomnia, rheumatoid arthritis, CHF, sleep apnea who presents with complaint of altered mental status and fever--104. Patient is currently unresponsive to verbal commands. Per report from nurses, patient was noted to be confused with a fever of 104 at dialysis. Patient was also noted to be hypotensive. Patient was difficult to arouse at dialysis as well. No other signs and symptoms reported. Symptoms aggravated or relieved by nothing. Patient was sent to the ER for further evaluation. - Past Medical/Surgical History Diabetic: Yes -: DM II -: Rheumatoid arthritis -: HTN -: HLD -: Diastolic CHF -: ESRD on HD (Dr. Cohn/ Dr. Marie) -: CAD -: History of DVT/PE -: L ankle fusion -: hysterectomy -: Dialysis catheter placement and removal -: Cholecystectomy -: pacemaker/defibrillator -: dialysis fistula placed to right upper arm Psychosocial/ Personal History: Patient lives with her - Social History Smoking Status: Unknown if ever smoked Alcohol use: No CD- Drugs: No Caffeine use: Yes Place of Residence: Home <RikjannicolleMarcellovipin Fox - Last Filed: 06/07/23 15:28> Date of Service: 06/08/23 <Jarrod Leiva - Last Filed: 06/08/23 06:01> Allergies No Known Allergies Allergy (Verified 01/02/22 02:33) Home Medications: Sevelamer Carbonate [Renvela*] 2 tab PO TIDWM 01/02/22 Midodrine HCl 5 mg PO BID 07/19/22 Escitalopram [Lexapro*] 10 mg PO BEDTIME 12/24/22 Acetaminophen [Tylenol*] 650 mg PO Q4HP PRN 12/29/22 Calcitrol [Rocaltrol*] 0.5 mcg PO SEECOM 12/29/22 Furosemide [Lasix*] 80 mg PO DAILY 12/29/22 Pantoprazole [Protonix Tab*] 40 mg PO DAILY 12/29/22 Pramipexole [Mirapex*] 0.25 mg PO BEDTIME 12/29/22 Nepro Shake [Nepro*] 237 ml PO BID can 01/07/23 Apixaban [Eliquis *] 1 tab PO BID 03/24/23 predniSONE [Prednisone*] 20 mg PO DAILY #5 tab 03/25/23 Review of Systems is unable to be obtained (Patient responsive to commands.) <Carola Yoon E - Last Filed: 06/07/23 15:28> Physical Examination - Physical Exam General: Alert, Confused, Unresponsive HEENT: Atraumatic, PERRLA, Mucous membr. moist/pink, EOMI, Sclerae nonicteric Neck: Supple, 2+ carotid pulse no bruit, No LAD, Without JVD or thyroid abnormality Respiratory: Normal air movement, Diminished Cardiovascular: No edema, Normal S1 S2 Capillary refill: <2 Seconds Gastrointestinal: Normal bowel sounds, Non-distended, No tenderness Musculoskeletal: No clubbing, No tenderness Integumentary: No rashes, Skin breakdown, Pressure ulcer, Other (Right forearm wound ) Neurological: Normal tone, Normal affect, Abnormal speech Lymphatics: No axilla or inguinal lymphadenopathy - Studies Laboratory Data (last 24 hrs) 06/07/23 06/07/23 06/07/23 11:55 11:55 11:55 WBC 21.80 H Hgb 13.5 Hct 41.9 Plt Count 83 L PT 20.2 H INR 1.87 APTT 38.1 H Sodium 139 Potassium 4.4 BUN 44 H Creatinine 3.99 H Glucose 87 Total Bilirubin 1.1 H AST 12 L ALT < 10 L Alkaline Phosphatase 93 Microbiology Data (last 24 hrs): 06/07/23 12:05 Nasopharnyx Influenza Type A Antigen Screen - Final 06/07/23 12:05 Nasopharnyx Influenza Type B Antigen Screen - Final <Carola Yoon E - Last Filed: 06/07/23 15:28> - Studies Laboratory Data (last 24 hrs) 06/07/23 06/07/23 06/07/23 11:55 11:55 11:55 WBC 21.80 H Hgb 13.5 Hct 41.9 Plt Count 83 L PT 20.2 H INR 1.87 APTT 38.1 H Sodium 139 Potassium 4.4 BUN 44 H Creatinine 3.99 H Glucose 87 Total Bilirubin 1.1 H AST 12 L ALT < 10 L Alkaline Phosphatase 93 Microbiology Data (last 24 hrs): 06/07/23 12:05 Nasopharnyx Influenza Type A Antigen Screen - Final 06/07/23 12:05 Nasopharnyx Influenza Type B Antigen Screen - Final <Jarrod Leiva - Last Filed: 06/08/23 06:01> Assessment and Plan - Plan --Acute metabolic encephalopathy. Likely secondary to UTI. CT head unremarkable for any acute intracranial abnormality. Continue antibiotics. -- UTI POA. Continue antibiotics. Urine cultures pending. -- Sepsis with septic shock. Blood pressure unresponsive to bolus hydration in the ER. Patient started on Levophed drip. Blood cultures pending. Continue antibiotics. --ESRD. Nephrology consulted. Further management per commercial appraiser. --Acute on chronic diastolic CHF exacerbation. Dialysis scheduled per commercial appraiser. Daily weight and strict I/O. --DM2 with neuropathy. BS monitoring with sliding scale insulin. We will hold off on gabapentin pending resolution of AMS. -- Right forearm wound\sacral ulcer. Wound care team consulted. Will await further recommendation. --COVID-19 infection. Infectious disease MD consulted. Will await further recommendations. --Influenza B. Patient placed on Tamiflu. Continue supportive care. --Rheumatoid arthritis. We will manage pain with current pain medication regimen. --Hyperlipidemia. Continue statin when appropriate. --Insomnia. Continue melatonin when appropriate. --Sleep apnea. Continue supportive care. --GERD. Continue Protonix. --COPD. Stable. Continue home medication when appropriate --History of DVT\[place]. Continue aspirin, statin and Eliquis when appropriate. --DVT prophylaxis SCDs. Continue chemical prophylaxis when appropriate. Discharge Plan: Home Plan to discharge in: Greater than 2 days - Advance Directives Does patient have a Living Will: No Does patient have a Durable POA for Healthcare: No - Code Status/Comfort Care Code Status Assessed: Yes Physician Review: Patient Assessed, Agree with Above Assessment and Plan Critical Care: No <Carola Yoon - Last Filed: 06/07/23 15:28> Date of Service: 06/07/23 Chart has been reviewed. Findings as mentioned above. Agree with above findings. I had a long talk with patient's [id number] and patient's . They want to continue with current treatment plan for her influenza and her COVID. Will continue with antiviral therapy. Patient is hypotensive and will manage with Levophed at this time. However, family does not want anything more aggressive including CPR, which includes chest compression and cardioversion, and they do not want her on a mechanical ventilator. If he continues to decline they are open to the process of hospice care. They reiterated the fact that they do not want her to suffer as she has been suffering for quite a while. Consult nephrology for hemodialysis. <Jarrod Leiva - Last Filed: 06/08/23 06:01>
[2023-06-07] MEDS ORDERED: OSELTAMIVIR 30 MG CAP PO SCH (15:00)
[2023-06-07] MEDS ORDERED: OSELTAMIVIR 30 MG CAP PO ONE (15:00)
[2023-06-07] MEDS ORDERED: VANCOMYCIN 1 GM in NA CHLORIDE 0.9% 250 ML IVPB ONE (16:00)
[2023-06-07] MEDS: INSULIN REGULAR (HUMAN) 100 UNIT/ML SQ SCH ×2 (16:30→21:00)
[2023-06-07] MEDS ORDERED: CEFEPIME 1 GM in NA CHLORIDE 0.9% 100 ML IV SCH (17:00)
[2023-06-07 19:48] LABS: Protime INR 1.76
[2023-06-07 20:02] LABS: Phosphorus 4.5 mg/dL (2.5-4.9)
--- NOTE | 2023-06-07 20:58 | P.CNS ---
Date of Consult: 06/08/23 Reason for Consult: ESRD Requesting Physician: Jarrod Leiva Chief Complaint: Altered mental status, sepsis History of Present Illness: Patient is a 72-year-old female with a past medical history significant for COPD , DM 2, ESRD, [place], hypertension, insomnia, rheumatoid arthritis, CHF, sleep apnea who presents with complaint of altered mental status and fever--104. Patient is currently unresponsive to verbal commands. Per report from nurses, patient was noted to be confused with a fever of 104 at dialysis. Patient was also noted to be hypotensive. Patient was difficult to arouse at dialysis as well. No other signs and symptoms reported. Symptoms aggravated or relieved by nothing. Patient was sent to the ER for further evaluation. ozrice 12:45 This 72 yrs old Female presents to ER via EMS with complaints of AMS, fever. rn 12:45 The patient reports fever, that was measured at 104 degrees Fahrenheit. Onset: The rn symptoms/episode began/occurred at an unknown time. Modifying factors: there are no obvious modifying factors. Associated signs and symptoms: Pertinent positives: altered mental status,\E\. Severity of symptoms: At their worst the symptoms were moderate in the emergency department the symptoms are unchanged. Unable to obtain HPI due to altered mental status. The patient has experienced similar episodes in the past. EMS reports brought in from dialysis, some dialysis performed but unknown how much. Had a 104 temperature and altered mental status with difficult to arouse at dialysis. Patient with multiple recent admissions and seems much worse to me this time. Hospice has been discussed in the past but her member and family not being on board last admission.. Allergies No Known Allergies Allergy (Verified 01/02/22 02:33) Home medications list reviewed: Yes Home Medications: Sevelamer Carbonate [Renvela*] 2 tab PO TIDWM 01/02/22 Midodrine HCl 5 mg PO BID 07/19/22 Escitalopram [Lexapro*] 10 mg PO BEDTIME 12/24/22 Acetaminophen [Tylenol*] 650 mg PO Q4HP PRN 12/29/22 Calcitrol [Rocaltrol*] 0.5 mcg PO SEECOM 12/29/22 Furosemide [Lasix*] 80 mg PO DAILY 12/29/22 Pantoprazole [Protonix Tab*] 40 mg PO DAILY 12/29/22 Pramipexole [Mirapex*] 0.25 mg PO BEDTIME 12/29/22 Nepro Shake [Nepro*] 237 ml PO BID can 01/07/23 Apixaban [Eliquis *] 1 tab PO BID 03/24/23 predniSONE [Prednisone*] 20 mg PO DAILY #5 tab 03/25/23 - Past Medical/Surgical History Diabetic: Yes -: DM II -: Rheumatoid arthritis -: HTN -: HLD -: Diastolic CHF -: ESRD on HD (Dr. Cohn/ Dr. Marie) -: CAD -: History of DVT/PE -: L ankle fusion -: hysterectomy -: Dialysis catheter placement and removal -: Cholecystectomy -: pacemaker/defibrillator -: dialysis fistula placed to right upper arm Psychosocial/ Personal History: Patient lives with her - Social History Smoking Status: Unknown if ever smoked Alcohol use: No CD- Drugs: No Caffeine use: Yes Place of Residence: Home Review of Systems is unable to be obtained General: Weakness, Malaise Neurological: Confusion Physical Examination Temp Pulse Resp BP Pulse Ox 99.5 F 81 18 122/62 100 06/07/23 20:45 06/07/23 20:45 06/07/23 20:45 06/07/23 20:45 06/07/23 20:45 General: In no apparent distress, Delirious HEENT: Atraumatic Neck: Supple Respiratory: Diminished Cardiovascular: Regular rate/rhythm, Edema Gastrointestinal: Non-distended, No guarding Musculoskeletal: No clubbing, No contractures Integumentary: No rashes, No cyanosis, Pressure ulcer Neurological: Abnormal speech Laboratory Data (last 24 hrs) 06/07/23 06/07/23 06/07/23 11:55 11:55 11:55 WBC 21.80 H Hgb 13.5 Hct 41.9 Plt Count 83 L PT 20.2 H INR 1.87 APTT 38.1 H Sodium 139 Potassium 4.4 BUN 44 H Creatinine 3.99 H Glucose 87 Total Bilirubin 1.1 H AST 12 L ALT < 10 L Alkaline Phosphatase 93 Imagings Data: darrenrice EXAM DESCRIPTION: RAD - Chest Single View - 06/07/2023 1:08 pm CLINICAL HISTORY: FEVER Chest pain. COMPARISON: <Comparisons> FINDINGS: Portable technique limits examination quality. Moderate pulmonary edema suspected with small bilateral pleural effusions. The heart is significantly enlarged with multilead pacer device present. No displaced fractures. IMPRESSION: Moderate CHF versus volume overload pattern. darrenrice EXAM DESCRIPTION: CT - Head Brain Wo Cont - 06/07/2023 12:34 pm CLINICAL HISTORY: AMS Headache, drowsiness COMPARISON: <Comparisons> TECHNIQUE: All CT scans are performed using dose optimization technique as appropriate and may include automated exposure control or mA/KV adjustment according to patient size. FINDINGS: No intracranial hemorrhage, hydrocephalus or extra-axial fluid collection.Mild generalized brain atrophy is present with mild periventricular and deep white matter chronic microvascular ischemic changes.No areas of brain edema or evidence of midline shift. The paranasal sinuses and mastoids are clear. The calvarium is intact. Mild vertebral atherosclerosis. IMPRESSION: No acute intracranial abnormality. Conclusions/Impression: ESRD on HD -HD TIW HTN with CKD/ CHF complicated by hypotension -Hold antihypertensives at this time -Continue Levophed Diastolic CHF, A/C -Daily weight -Low sodium diet -HD with UF as tolerated DM II with CKD -RISS Hypoalbuminemia, severe Severe Malnutrition with asthenia/ sarcopenia -Agree with dobhoff -Start Nepro as tolerated -Give IV Albumin with HD Anemia in CKD -Retacrit prn CKD MBD -Start calcitriol Sepsis with Shock Acute Cystitis with hematuria -Continue Abx -Follow up cultures -Continue Levophed COVID 19 Influenza -Continue supplemental Oxygen Toxic Metabolic Encephalopathy -Continue supportive care Hospitalist and ER notes reviewed Case reviewed with Dr. Mathis Thank you kindly for the consultation Greater than 30min patient care
[2023-06-07] MEDS: HEPARIN 5000 UNIT/ML 1 ML VIAL SQ SCH (21:00)
[2023-06-07] MEDS ORDERED: OSELTAMIVIR 75 MG CAP PO SCH (21:00)
[2023-06-07] MEDS ORDERED: PANTOPRAZOLE 40 MG INJ ONE (21:11)
[2023-06-07] MEDS ORDERED: HEPARIN 5000 UNIT/ML 1 ML VIAL ONE (21:12)
[2023-06-07] MEDS: PANTOPRAZOLE 40 MG INJ IVP SCH (21:30)
[2023-06-08] MEDS ORDERED: HYDROMORPHONE HCL 0.5 MG/0.5 ML INJ ONE (02:50)
[2023-06-08] MEDS ORDERED: HYDROMORPHONE HCL 0.5 MG/0.5 ML INJ IV ONE (02:50)
[2023-06-08] MEDS ORDERED: ONDANSETRON 4 MG/2 ML VIAL ONE (03:01)
[2023-06-08 04:07] LABS: Absolute Lymphocytes (CBC) 1.6 K/uL (0.7-4.9); Lymphocytes % 5.6 % (15.3-44.8); MCV 91.2 fL (80-100); MPV 8.5 fL (7.6-11.3); Platelets 85 thou/uL (152-406); RBC Red Blood Cell Count 4.38 M/uL (3.86-4.86)
[2023-06-08 04:28] LABS: Anisocytosis 1+; Blood Morphology Comment NOTED (NOT SEEN); Platelet Estimate DECR
[2023-06-08 04:39] LABS: BUN Blood Urea Nitrogen 54 mg/dL (7-18); Bicarbonate 24 mEq/L (21-32); Glomerular Filtration Rate 10 ml/min (=/>90); Glucose Level 143 mg/dL (74-106); Potassium 4.1 mEq/L (3.5-5.1); Sodium Level 141 mEq/L (136-145)
[2023-06-08 04:40] LABS: NT PRO-BNP > 175000 pg/mL (<125)
[2023-06-08] MEDS: NOREPINEPHRINE BITARTRATE/D5W 4 MG/250 ML BAG IV SCH (05:30)
[2023-06-08] MEDS: INSULIN REGULAR (HUMAN) 100 UNIT/ML SQ SCH ×4 (07:30→21:00)
[2023-06-08] MEDS: HEPARIN 5000 UNIT/ML 1 ML VIAL SQ SCH ×2 (08:53→21:00)
[2023-06-08] MEDS: PANTOPRAZOLE 40 MG INJ IVP SCH (08:56)
[2023-06-08] MEDS ORDERED: NA CHLORIDE 0.9% 100 ML ONE (09:25)
[2023-06-08] MEDS ORDERED: VANCOMYCIN 1 GM/VIAL ONE (09:25)
[2023-06-08] MEDS ORDERED: Meropenem 1000 MG/VIAL IV ONE (09:25)
[2023-06-08] MEDS ORDERED: NA CHLORIDE 0.9% 250 ML ONE (09:25)
[2023-06-08] MEDS ORDERED: Meropenem 1,000 MG in NA CHLORIDE 0.9% 100 ML IV ONE (09:30)
[2023-06-08] MEDS ORDERED: VANCOMYCIN 1 GM in NA CHLORIDE 0.9% 250 ML IVPB ONE (09:30)
--- NOTE | 2023-06-08 09:43 | P.CNS ---
Date of Consult: 06/08/23 Reason for Consult: flu and covid Chief Complaint: Altered mental status, sepsis History of Present Illness: Patient is a 72 yo female with a PMH of ESRD on hemodialysis, diabetes mellitus type II, CHF, rheumatoid arthritis who presented to the ED due to altered mental status and fever of 104 F. She was found to have COVID and Influenza B. Infectious disease was consulted. Allergies No Known Allergies Allergy (Verified 01/02/22 02:33) Home medications list reviewed: Yes Home Medications: Sevelamer Carbonate [Renvela*] 2 tab PO TIDWM 01/02/22 Midodrine HCl 5 mg PO BID 07/19/22 Escitalopram [Lexapro*] 10 mg PO BEDTIME 12/24/22 Acetaminophen [Tylenol*] 650 mg PO Q4HP PRN 12/29/22 Calcitrol [Rocaltrol*] 0.5 mcg PO SEECOM 12/29/22 Furosemide [Lasix*] 80 mg PO DAILY 12/29/22 Pantoprazole [Protonix Tab*] 40 mg PO DAILY 12/29/22 Pramipexole [Mirapex*] 0.25 mg PO BEDTIME 12/29/22 Nepro Shake [Nepro*] 237 ml PO BID can 01/07/23 Apixaban [Eliquis *] 1 tab PO BID 03/24/23 predniSONE [Prednisone*] 20 mg PO DAILY #5 tab 03/25/23 - Past Medical/Surgical History Diabetic: Yes -: DM II -: Rheumatoid arthritis -: HTN -: HLD -: Diastolic CHF -: ESRD on HD (Dr. Cohn/ Dr. Marie) -: CAD -: History of DVT/PE -: L ankle fusion -: hysterectomy -: Dialysis catheter placement and removal -: Cholecystectomy -: pacemaker/defibrillator -: dialysis fistula placed to right upper arm Psychosocial/ Personal History: Patient lives with her - Social History Smoking Status: Unknown if ever smoked Alcohol use: No CD- Drugs: No Caffeine use: Yes Place of Residence: Home Review of Systems is unable to be obtained (confused/lethargic) Physical Examination Temp Pulse Resp BP Pulse Ox 98.1 F 80 12 109/46 L 100 06/08/23 05:30 06/08/23 09:00 06/08/23 09:00 06/08/23 09:00 06/08/23 09:00 General: In no apparent distress, Oriented x1, Confused HEENT: Atraumatic Respiratory: Rhonchi/gurgles, Other (on 4L nasal cannula) Cardiovascular: Regular rate/rhythm, Edema (BLE 1+) Gastrointestinal: Normal bowel sounds, Soft and benign Urinary: Cheatham catheter Laboratory Data - Reviewed Microbiology Data - Reviewed Imagings Data: - Reviewed Conclusions/Impression: Problem List COVID19 Infection Positive Influenza B Diabetes Mellitus type II ESRD Hyperlipidemia Diastolic CHF Rheumatoid Arthritis Septic shock secondary to suspected UTI - Urinalysis with LE 500; RBC >50; WBC >50; bacteria 20-50; protein 2+. 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 Superimposed pneumonic process could contribute to this appearance." - On Tamiflu (started 06/07) Recommendations - Flu B: Continue Tamiflu - COVID19: consider start on Remdesivir IV x 5 days - history of MRSA and multi-drug resistant infections: continue meropenem and vancomycin for now - follow up with blood culture results - Monitor WBC and fever trends - Continue supportive care - Nephrology and pulmonology also following Case discussed with Allie Alfaro
[2023-06-08] MEDS ORDERED: OSELTAMIVIR 30 MG CAP PO ONE (10:00)
--- NOTE | 2023-06-08 10:07 | P.PN ---
Subjective Date of Service: 06/08/23 Chief Complaint: Altered mental status, sepsis Pt appears very lethargic. AAOx1. She presented in the ER after she became confused during dialysis. Pt also has multiple pressure wound on her sacral region. Pt also tested positive for flu B. She a resident of a correction. No other complaints. Review of Systems is unable to be obtained Physical Examination - Vital Signs Temperature: 98.1 F Blood Pressure: 109/46 Pulse: 80 Respirations: 12 Pulse Ox (%): 100 - Physical Exam General: Alert, In no apparent distress, Oriented x1 HEENT: Atraumatic, Normocephalic Neck: Supple, 2+ carotid pulse no bruit Respiratory: Clear to auscultation bilaterally, Normal air movement Cardiovascular: No edema, Normal pulses, Regular rate/rhythm Capillary refill: <2 Seconds Gastrointestinal: Normal bowel sounds, Soft and benign, Non-distended Musculoskeletal: No clubbing, No swelling Integumentary: No rashes, No breakdown Neurological: Normal gait, Normal speech, Normal strength at 5/5 x4 extr Lymphatics: No axilla or inguinal lymphadenopathy - Studies Laboratory Data (last 24 hrs) 06/07/23 06/07/23 06/07/23 11:55 11:55 11:55 WBC 21.80 H Hgb 13.5 Hct 41.9 Plt Count 83 L PT 20.2 H INR 1.87 APTT 38.1 H Sodium 139 Potassium 4.4 BUN 44 H Creatinine 3.99 H Glucose 87 Total Bilirubin 1.1 H AST 12 L ALT < 10 L Alkaline Phosphatase 93 Microbiology Data (last 24 hrs): 06/07/23 12:05 Nasopharnyx Influenza Type A Antigen Screen - Final 06/07/23 12:05 Nasopharnyx Influenza Type B Antigen Screen - Final Assessment And Plan - Plan Acute metabolic encephalopathy: Likely secondary to UTI. CT head is unremarkable for any acute intracranial abnormality. Will continue merrem and follow urine culture. Septic shock 2/2 UTI: Will continue iv vanc and merrem and follow up blood and urine cx. Wean levophed as tolerated. ESRD: Will continue HD per schedule. Consulted Retail Loss Prevention Investigator. DM2 with neuropathy: Continue accuchek, SSI and ADA diet. Will hold gabapentin due to confusion. Right forearm wound\sacral ulcer: Will continue wound care. Consulted wound care team. COVID-19 infection: Consulted ID. Pt is using 4L BNC oxygen. Will add decadron 6mg iv daily. Waiting for ID recommendation. Influenza B: Continue tamiflu. Rheumatoid arthritis: Continue prn pain med. Hyperlipidemia: Statin Insomnia: prn melatonin Sleep apnea: CPAP at night. GERD: Continue Protonix. COPD: Stable. Continue prn duoneb and oxygen. History of DVT\PA: Continue aspirin, statin and Eliquis when appropriate. Nutrition: Will place NG tube for tube feeding. DVT prophylaxis SCDs Discharge Plan: Home Plan to discharge in: Greater than 2 days - Code Status/Comfort Care Code Status Assessed: Yes Code Status: Full Code Physician Review: Patient Assessed, Agree with Above Assessment and Plan
[2023-06-08] MEDS ORDERED: ALBUMIN HUMAN 25% 100 ML IV ONE ×2 (10:52→12:00)
[2023-06-08] MEDS ORDERED: NA CHLORIDE 0.9% 1,000 ML IV PRN (10:53)
[2023-06-08] MEDS ORDERED: MANNITOL 25% 12.5 GM/50 ML VIAL IV PRN (10:53)
--- NOTE | 2023-06-08 10:58 | RAD REPORT ---
EXAM DESCRIPTION: RAD - Abdomen 1 View (KUB) - 06/08/2023 10:27 am CLINICAL HISTORY: Dobbhoff placement COMPARISON: Chest Single View dated 06/07/2023 TECHNIQUE: Single AP view of the abdomen. FINDINGS: Enteric tube projects distally at the level of the gastroesophageal junction. Its tip is c urved upwards and projects at the level of the distal esophagus. Nonobstructive bowel gas pattern with a relative paucity of bowel gas, a nonspecific finding. No air- fluid levels, free air, or pneumatosis. No suspicious calcifications. No significant bony abnormality. The included lower lungs again demonstrate airspace opacities more pronounced on the left with probab le effusions. Cardiomegaly and left chest wall pacer again seen. IMPRESSION: Abnormal positioning of the enteric tube as above. Repositioning is recommended.
[2023-06-08] MEDS ORDERED: ALBUMIN HUMAN 25% 50 ML IV SCH (11:00)
[2023-06-08] MEDS ORDERED: NA CHLORIDE 0.9% 1,000 ML ONE (11:54)
[2023-06-08] MEDS ORDERED: NA CHLORIDE 0.9% 1,000 ML IV ONE (12:00)
--- NOTE | 2023-06-08 12:24 | P.CNS ---
Date of Consult: 06/08/23 Reason for Consult: Shock Chief Complaint: Altered mental status, sepsis History of Present Illness: Patient is 72 years of age tested positive for COVID admitted with altered mental status low blood pressure patient is currently unresponsive on oxygen and Levophed retirement resident multiple decubitus ulcers Allergies No Known Allergies Allergy (Verified 01/02/22 02:33) Home Medications: Sevelamer Carbonate [Renvela*] 2 tab PO TIDWM 01/02/22 Midodrine HCl 5 mg PO BID 07/19/22 Escitalopram [Lexapro*] 10 mg PO BEDTIME 12/24/22 Acetaminophen [Tylenol*] 650 mg PO Q4HP PRN 12/29/22 Calcitrol [Rocaltrol*] 0.5 mcg PO SEECOM 12/29/22 Furosemide [Lasix*] 80 mg PO DAILY 12/29/22 Pantoprazole [Protonix Tab*] 40 mg PO DAILY 12/29/22 Pramipexole [Mirapex*] 0.25 mg PO BEDTIME 12/29/22 Nepro Shake [Nepro*] 237 ml PO BID can 01/07/23 Apixaban [Eliquis *] 1 tab PO BID 03/24/23 predniSONE [Prednisone*] 20 mg PO DAILY #5 tab 03/25/23 - Past Medical/Surgical History Diabetic: Yes -: DM II -: Rheumatoid arthritis -: HTN -: HLD -: Diastolic CHF -: ESRD on HD (Dr. Cohn/ Dr. Marie) -: CAD -: History of DVT/PE -: L ankle fusion -: hysterectomy -: Dialysis catheter placement and removal -: Cholecystectomy -: pacemaker/defibrillator -: dialysis fistula placed to right upper arm Psychosocial/ Personal History: Patient lives with her - Social History Smoking Status: Unknown if ever smoked Alcohol use: No CD- Drugs: No Caffeine use: Yes Place of Residence: Home Review of Systems is unable to be obtained Physical Examination Temp Pulse Resp BP Pulse Ox 98.1 F 80 13 111/56 L 100 06/08/23 10:14 06/08/23 10:45 06/08/23 10:45 06/08/23 10:45 06/08/23 10:45 General: Unresponsive HEENT: Atraumatic Neck: Supple Respiratory: Clear to auscultation bilaterally, Diminished Cardiovascular: No edema, Regular rate/rhythm, Normal S1 S2 Laboratory Data (last 24 hrs) 06/07/23 06/07/23 11:55 11:55 WBC 21.80 H Hgb 13.5 Hct 41.9 Plt Count 83 L Sodium 139 Potassium 4.4 BUN 44 H Creatinine 3.99 H Glucose 87 Total Bilirubin 1.1 H AST 12 L ALT < 10 L Alkaline Phosphatase 93 - Problems (1) Septic shock Current Visit: Yes Status: Acute Plan: Patient is 72 years of age admitted with septic shock elevated white count tested positive for COVID chest x-ray shows improved impressive cardiomegaly white count is elevated recommend fluid boluses continue with the Levophed so far blood cultures are negative continue with present medication including steroids patient also has chronic renal failure
--- NOTE | 2023-06-08 12:59 | RAD REPORT ---
EXAM DESCRIPTION: RAD - Abdomen 1 View (KUB) - 06/08/2023 11:18 am CLINICAL HISTORY: Dobhoff COMPARISON: Abdomen 1 View (KUB) dated 06/08/2023 TECHNIQUE: Single AP view of the abdomen. FINDINGS: Enteric tube tip now projects along the stomach body. Nonobstructive bowel gas pattern. No air-fluid levels, free air, or pneumatosis. No suspicious calcif ications. No significant bony abnormality. Stable appearance of the heart and included lung bases. Stable mild deformity along the lateral eight h rib, may relate to a mildly displaced acute or healing fracture. IMPRESSION: Satisfactory positioning of the enteric tube. Findings as above
[2023-06-08] MEDS ORDERED: Oxycodone HCl/Acetaminophen 5/325 MG TAB ONE (14:46)
[2023-06-08] MEDS: Oxycodone HCl/Acetaminophen 5/325 MG TAB PO PRN (14:49)
--- NOTE | 2023-06-08 15:03 | RAD REPORT ---
EXAM DESCRIPTION: RAD - Chest Single View - 06/08/2023 3:41 am CLINICAL HISTORY: Possible aspiration COMPARISON: Report from 06/07/2023 FINDINGS: Single frontal view of the chest. Tubes and lines: Left chest wall multilead generator. Leads overlie the chest. Cardiomediastinal silhouette: Stable Lungs: Bilateral pleural effusions. No pneumothorax. Pulmonary vascular congestion. Bilateral interst itial opacities. Bones: Stable. Upper abdomen: Stable. IMPRESSION: 1. Persistent bilateral pleural effusions and pulmonary edema pattern. Superimposed pneu benjamin process could contribute to this appearance. Electronically signed by: Korey Beth DO 06/08/2023 03:49 AM BRAZER RESISTANCE M Due to temporary technical issues with the PACS/Fluency reporting system, reports are being signed by the in house radiologist without review as a courtesy to ensure prompt reporting. The interpreting r adiologist is fully responsible for the content of the report.
[2023-06-08] MEDS ORDERED: VANCOMYCIN 500 MG in NA CHLORIDE 0.9% 100 ML IVPB SCH (17:00)
[2023-06-08] MEDS ORDERED: VANCOMYCIN IVPB SCH (18:00)
[2023-06-08] MEDS ORDERED: NA CHLORIDE 0.9% IVPB SCH (18:00)
[2023-06-09] MEDS: NOREPINEPHRINE BITARTRATE/D5W 4 MG/250 ML BAG IV SCH (02:29)
[2023-06-09 05:38] LABS: Absolute Lymphocytes (CBC) 0.9 K/uL (0.7-4.9); Hematocrit 36.8 % (36.0-45.0); Lymphocytes % 2.9 % (15.3-44.8); MCV 90.4 fL (80-100); MPV 9.5 fL (7.6-11.3); Platelets 85 thou/uL (152-406); RBC Red Blood Cell Count 4.07 M/uL (3.86-4.86)
[2023-06-09] MEDS: INSULIN REGULAR (HUMAN) 100 UNIT/ML SQ SCH ×4 (07:30→21:00)
[2023-06-09] MEDS ORDERED: dexAMETHasone 10 MG/ML VIAL ONE (08:02)
[2023-06-09] MEDS: dexAMETHasone 10 MG/ML VIAL IV SCH (08:07)
[2023-06-09] MEDS: HEPARIN 5000 UNIT/ML 1 ML VIAL SQ SCH ×2 (08:07→21:17)
[2023-06-09] MEDS: PANTOPRAZOLE 40 MG INJ IVP SCH (08:08)
--- NOTE | 2023-06-09 09:35 | P.PN ---
Subjective Date of Service: 06/09/23 Chief Complaint: Altered mental status, sepsis Pt appears very lethargic. AAOx1. She has poor prognosis. She has multiple pressure wounds on her sacral region. Pt also tested positive for flu B. She a resident of a halfway. Her family is considering Hospice care. Will start tube feeding today. No water flushes yet. No other complaints. Review of Systems is unable to be obtained Physical Examination - Vital Signs Temperature: 97.5 F Blood Pressure: 115/58 Pulse: 80 Respirations: 14 Pulse Ox (%): 98 - Physical Exam General: Alert, In no apparent distress, Oriented x1 HEENT: Atraumatic, Normocephalic Neck: Supple, 2+ carotid pulse no bruit Respiratory: Clear to auscultation bilaterally, Normal air movement Cardiovascular: Normal pulses, Regular rate/rhythm, Normal S1 S2, Edema Capillary refill: <2 Seconds Gastrointestinal: Normal bowel sounds, Soft and benign Musculoskeletal: No clubbing, No swelling Integumentary: No rashes, No breakdown Neurological: Dementia Lymphatics: No axilla or inguinal lymphadenopathy Assessment And Plan - Plan Acute metabolic encephalopathy: Likely secondary to UTI. CT head is unremarkabl e for any acute intracranial abnormality. Will continue merrem and follow urine culture. Septic shock 2/2 UTI: Will continue iv vanc and merrem and follow up blood and urine cx. Wean levophed as tolerated. Thrombocytopenia: Plt is 85. Will hold heparin. Continue SCD Acute resp failure with hypoxia: Due to COVID. Will continue iv abx, steroid, prn duoneb and oxygen. Consulted Sunglass Clip Attacher. ESRD: Will continue HD per schedule. Consulted Multi Share Program Coordinator. DM2 with neuropathy: Continue accuchek, SSI and ADA diet. Will hold gabapentin due to confusion. Right forearm wound\sacral ulcer: Will continue wound care. Consulted wound care team. COVID-19 infection: Consulted ID. Pt is using 2L BNC oxygen. Will add decadron 6mg iv daily. Waiting for ID recommendation. Influenza B: Continue tamiflu. Rheumatoid arthritis: Continue prn pain med. Hyperlipidemia: Statin Insomnia: prn melatonin Sleep apnea: CPAP at night. GERD: Continue Protonix. COPD: Stable. Continue prn duoneb and oxygen. History of DVT\AR: Continue aspirin, statin and Eliquis when appropriate. Nutrition: Will start tube feeding. No water flushes yet. DVT prophylaxis SCDs Dispo: Her family is considering hospice care. Will wait for their decision. Physician Review: Patient Assessed, Agree with Above Assessment and Plan
--- NOTE | 2023-06-09 09:37 | P.PN ---
Subjective Date of Service: 06/09/23 Chief Complaint: Septic shock No change in patient's condition patient is minimally responsive patient is still in septic shock and low doses of Levophed Review of Systems is unable to be obtained Physical Examination - Vital Signs Temperature: 97.5 F Blood Pressure: 115/58 Pulse: 80 Respirations: 14 Pulse Ox (%): 98 - Physical Exam General: Unresponsive Respiratory: Crackles/rales Cardiovascular: Regular rate/rhythm, Normal S1 S2, Edema Assessment And Plan - Current Problems (Diagnosis) (1) Septic shock Current Visit: Yes Status: Acute Plan: Patient admitted with presumed septic shock cultures are all negative still on low-dose Levophed renal function is worse white count is also elevated trial of IV Solu-Medrol prognosis poor on vancomycin and meropenem patient is now DNR start on tube feeds with Nepro 10 cc an hour crease by 10 cc every 4 hours maximum 40 cc an hour dietitian consult Physician Review: Patient Assessed, Agree with Above Assessment and Plan
[2023-06-09] MEDS ORDERED: METHYLPREDNISOLONE 40 MG INJ ONE (09:44)
[2023-06-09] MEDS: METHYLPREDNISOLONE 40 MG INJ IV SCH ×2 (09:50→21:16)
[2023-06-09] MEDS ORDERED: Oxycodone HCl/Acetaminophen 5/325 MG TAB ONE ×3 (10:43→21:07)
[2023-06-09] MEDS: Oxycodone HCl/Acetaminophen 5/325 MG TAB PO PRN ×3 (10:47→21:17)
--- NOTE | 2023-06-09 11:35 | P.PN ---
Nephrology (S) Pt's condition unchanged, remains on lower dose pressor support, remains lethargic, remains on LFNC. WBC has further risen. On low rate TF. Spoke extensively with her pt's whose understanding of her severe illness and multiple challenges is poor but he is agreeable with no further HD and appears to be prepared to move forward with a transition to palliative care/comfort measures which would appear to be appropriate given pt's progressive decline and latest illness. (O) vitals reviewed in the EMR General: Elderly, frail HEENT: Atraumatic, LFNC, NGT Neck: Supple Respiratory: Diminished at bases, poor resp effort Cardiovascular: Non tachy, no current edema Gastrointestinal: Soft, ND, some generalized TTP Musculoskeletal: Muscle mass loss, Rt UE AV access Integumentary: No rashes Neurological: Lethargic, briefly opens eyes, mumbles Conclusions/Impression: ESRD on chronic dialysis -Last HD appears to have been her OP treatment. No further HD planned as agrees to stop any further treatments and this stage pt appears to be appropriate for a transition to comfort measures. Hypotension 2nd to septic shock, presumably from urinary source along with Influenza infection. Worsening leukocytosis -Medical management per hospitalist until formal transition to hospice care Ti Glover MD, AZRA
--- NOTE | 2023-06-09 12:45 | P.PN ---
Date of Service: 06/09/23 Chief Complaint: Altered mental status, sepsis Subjective: Patient seen and examined at bedside. In no apparent distress. Minimally responsive. Remains on levophed drip. ROS unable to obtain at this time. Physical Examination Temp Pulse Resp BP Pulse Ox 97.2 F 80 16 108/49 L 98 06/09/23 12:00 06/09/23 12:15 06/09/23 12:15 06/09/23 12:15 06/09/23 12:15 General: In no apparent distress, Oriented x1. Minimally responsive. HEENT: Atraumatic Respiratory: Rhonchi/gurgles. Unlabored respirations. On 2L nasal cannula. Cardiovascular: Regular rate/rhythm, Edema (BLE 1+) Gastrointestinal: Normal bowel sounds, Soft and benign Urinary: Cheatham catheter Laboratory Data - Reviewed Microbiology Data - Reviewed Imagings Data: - Reviewed Medications List: Reviewed Assessment and Plan Problem List COVID19 Infection Positive Influenza B Diabetes Mellitus type II ESRD Hyperlipidemia Diastolic CHF Rheumatoid Arthritis Septic shock secondary to suspected UTI - Urinalysis with LE 500; RBC >50; WBC >50; bacteria 20-50; protein 2+. 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 Superimposed pneumonic process could contribute to this appearance." - On Tamiflu (started 06/07) Recommendations - history of MRSA and multi-drug resistant infections: continue meropenem and vancomycin for now - Flu B: Continue Tamiflu x 5 days - COVID19: consider start on Remdesivir IV x 5 days - follow up with blood culture results - Monitor WBC and fever trends - Continue supportive care - Nephrology and pulmonology also following Case discussed with Allie Alfaro
[2023-06-09] MEDS ORDERED: Meropenem 500 MG VIAL IV ONE (16:27)
[2023-06-09] MEDS ORDERED: NA CHLORIDE 0.9% 100 ML ONE (16:27)
[2023-06-09] MEDS ORDERED: Meropenem 500 MG in NA CHLORIDE 0.9% 100 ML IV SCH (18:00)
[2023-06-10 04:57] LABS: Absolute Lymphocytes (CBC) 0.6 K/uL (0.7-4.9); Hematocrit 37.6 % (36.0-45.0); Lymphocytes % 2.8 % (15.3-44.8); MPV 9.8 fL (7.6-11.3); Platelets 102 thou/uL (152-406); RBC Red Blood Cell Count 4.13 M/uL (3.86-4.86)
[2023-06-10 05:15] LABS: Potassium 4.9 mEq/L (3.5-5.1)
[2023-06-10 06:09] VITALS: BMI 24.0
[2023-06-10] MEDS ORDERED: INSULIN REGULAR (HUMAN) 100 UNIT/ML ONE ×2 (07:42→12:10)
[2023-06-10] MEDS: PANTOPRAZOLE 40 MG INJ IVP SCH (07:51)
[2023-06-10] MEDS: INSULIN REGULAR (HUMAN) 100 UNIT/ML SQ SCH ×2 (07:51→12:35)
[2023-06-10] MEDS: HEPARIN 5000 UNIT/ML 1 ML VIAL SQ SCH (07:51)
[2023-06-10] MEDS: dexAMETHasone 10 MG/ML VIAL IV SCH (07:52)
[2023-06-10] MEDS: METHYLPREDNISOLONE 40 MG INJ IV SCH (07:52)
[2023-06-10] MEDS ORDERED: Oxycodone HCl/Acetaminophen 5/325 MG TAB ONE (07:54)
[2023-06-10] MEDS: Oxycodone HCl/Acetaminophen 5/325 MG TAB PO PRN (07:55)
[2023-06-10 09:37] VITALS: O2SAT 93
--- NOTE | 2023-06-10 09:55 | P.PN ---
Subjective Date of Service: 06/10/23 Chief Complaint: Septic shock Pt appears very lethargic. AAOx0. She has poor prognosis. Her family has decided to pursue comfort care. intermediate project manager is setting up inpatient Hospice. She has multiple pressure wounds on her sacral region. Pt also tested positive for flu B. She a resident of a detention. No other complaints. Review of Systems is unable to be obtained Physical Examination - Vital Signs Temperature: 97.4 F Blood Pressure: 104/51 Pulse: 80 Respirations: 12 Pulse Ox (%): 99 - Physical Exam General: Confused HEENT: Atraumatic, Normocephalic Neck: Supple, 2+ carotid pulse no bruit Respiratory: Clear to auscultation bilaterally, Normal air movement Cardiovascular: No edema, Normal pulses, Regular rate/rhythm, Normal S1 S2 Capillary refill: <2 Seconds Gastrointestinal: Normal bowel sounds, Soft and benign, Non-distended Musculoskeletal: No clubbing, No swelling Integumentary: No rashes, No breakdown Lymphatics: No axilla or inguinal lymphadenopathy Assessment And Plan - Plan Acute metabolic encephalopathy: Likely secondary to UTI. CT head is unremarkable for any acute intracranial abnormality. Will continue merrem and follow urine culture. Septic shock 2/2 UTI: Will continue iv vanc and merrem and follow up blood and urine cx. Wean levophed as tolerated. Thrombocytopenia: Plt is 85. Will hold heparin. Continue SCD Acute resp failure with hypoxia: Due to COVID. Will continue iv abx, steroid, prn duoneb and oxygen. Consulted Building Principal. ESRD: Will continue HD per schedule. Consulted Stock Lifter. DM2 with neuropathy: Continue accuchek, SSI and ADA diet. Will hold gabapentin due to confusion. Right forearm wound\sacral ulcer: Will continue wound care. Consulted wound care team. COVID-19 infection: Consulted ID. Pt is using 2L BNC oxygen. Will add decadron 6mg iv daily. Waiting for ID recommendation. Influenza B: Continue tamiflu. Rheumatoid arthritis: Continue prn pain med. Hyperlipidemia: Statin Insomnia: prn melatonin Sleep apnea: CPAP at night. GERD: Continue Protonix. COPD: Stable. Continue prn duoneb and oxygen. History of DVT\CT: Continue aspirin, statin and Eliquis when appropriate. Nutrition: Will start tube feeding. No water flushes yet. DVT prophylaxis SCDs Dispo: Her family has decided to pursue comfort care. Waiting for set up of [facility] hospice. Physician Review: Patient Assessed, Agree with Above Assessment and Plan
--- NOTE | 2023-06-10 10:20 | P.PN ---
Subjective Date of Service: 06/10/23 Chief Complaint: Septic shock No change in patient's condition patient is unresponsive still in shock requiring Levophed Review of Systems is unable to be obtained Physical Examination - Vital Signs Temperature: 97.4 F Blood Pressure: 104/52 Pulse: 80 Respirations: 20 Pulse Ox (%): 100 - Physical Exam General: Unresponsive Respiratory: Clear to auscultation bilaterally Cardiovascular: No edema, Regular rate/rhythm Assessment And Plan - Current Problems (Diagnosis) (1) Septic shock Current Visit: Yes Status: Acute Plan: Admitted with presumed septic shock cultures are so far negative white count elevated but declining agree with withdrawal of care as soon as approved by relative morphine and Versed for comfort care in the meantime after with overall prognosis is very poor very poor baseline functioning multiple decubitus ulcer Physician Review: Patient Assessed, Agree with Above Assessment and Plan
[2023-06-10 13:33] VITALS: TEMP 97.4
[2023-06-10 17:02] VITALS: BP 116/58
--- NOTE | 2023-06-10 17:23 | P.DS ---
Admission Date: 06/07/23 Discharge Date: 06/10/23 Disposition: HOSPICE-MEDICAL FACILITY Discharge Condition: SERIOUS Reason for Admission: Septic shock Brief History of Present Illness: Patient is a 72-year-old female with a past medical history significant for COPD, DM 2, ESRD, VT, hypertension, insomnia, rheumatoid arthritis, CHF, sleep apnea who presents with complaint of altered mental status and fever--104. Patient is currently unresponsive to verbal commands. Per report from nurses, patient was noted to be confused with a fever of 104 at dialysis. Patient was also noted to be hypotensive. Patient was difficult to arouse at dialysis as well. No other signs and symptoms reported. Symptoms aggravated or relieved by nothing. Patient was sent to the ER for further evaluation. Hospital Course: Pt is a 72-yo female with past medical history significant for COPD, DM 2, ESRD, VT, hypertension, insomnia, rheumatoid arthritis, CHF, sleep apnea who presented with complaint of altered mental status and fever--104. Upon admission, patient was unresponsive to verbal commands and hypotensive. Pt was very difficult to arouse during dialysis and they sent him to the ER for evaluation. Pt was admitted in the ICU for the medical problems listed below: Acute metabolic encephalopathy: Likely secondary to UTI. CT head is unremarkable for any acute intracranial abnormality. Will continue merrem and follow urine culture. Septic shock 2/2 UTI: Will continue iv vanc and merrem and follow up blood and urine cx. Wean levophed as tolerated. Thrombocytopenia: Plt is 85. Will hold heparin. Continue SCD Acute resp failure with hypoxia: Due to COVID. Will continue iv abx, steroid, prn duoneb and oxygen. Consulted Foot Orthopedist. ESRD: Will continue HD per schedule. Consulted Auto Transmission Technician. DM2 with neuropathy: Continue accuchek, SSI and ADA diet. Will hold gabapentin due to confusion. Right forearm wound / sacral ulcer: Will continue wound care. Consulted wound care team. COVID-19 infection: Consulted ID. Pt is using 2L BNC oxygen. We added decadron 6mg iv daily. Waiting for ID recommendation. Influenza B: Continue tamiflu. Rheumatoid arthritis: Continue prn pain med. Hyperlipidemia: Statin Insomnia: prn melatonin Sleep apnea: CPAP at night. GERD: Continue Protonix. COPD: Stable. Continue prn duoneb and oxygen. History of DVT\VT: Continue aspirin, statin and Eliquis when appropriate. Nutrition: Will continue tube feeding. No water flushes yet. DVT prophylaxis SCDs Dispo: Her family has decided to pursue comfort care. Pt was discharged to inpatient hospice. Vital Signs/Physical Exam: Temp Pulse Resp BP Pulse Ox 97.4 F 80 14 116/58 L 100 06/10/23 12:15 06/10/23 16:45 06/10/23 16:45 06/10/23 16:45 06/10/23 16:45 Laboratory Data at Discharge: WBC 22.50 thou/uL (4.3-10.9) H 06/10/23 04:45 Hgb 11.9 g/dL (12.0-15.0) L 06/10/23 04:45 Hct 37.6 % (36.0-45.0) 06/10/23 04:45 Plt Count 102 thou/uL (152-406) L 06/10/23 04:45 PT 19.0 SECONDS (9.5-12.5) H 06/07/23 19:00 INR 1.76 06/07/23 19:00 APTT 38.1 SECONDS (24.3-36.9) H 06/07/23 11:55 Sodium 140 mEq/L (136-145) 06/10/23 04:45 Potassium 4.9 mEq/L (3.5-5.1) D 06/10/23 04:45 BUN 80 mg/dL (7-18) H 06/10/23 04:45 Creatinine 5.37 mg/dL (0.55-1.02) H 06/10/23 04:45 Glucose 245 mg/dL (74-106) H 06/10/23 04:45 Phosphorus 4.5 mg/dL (2.5-4.9) 06/07/23 19:00 Magnesium 2.0 mg/dL (1.6-2.4) 06/07/23 19:00 Total Bilirubin 1.1 mg/dL (0.2-1.0) H 06/07/23 11:55 AST 12 U/L (15-37) L 06/07/23 11:55 ALT < 10 U/L (13-56) L 06/07/23 11:55 Alkaline Phosphatase 93 U/L (45-117) 01/17/24 11:55 Home Medications: Sevelamer Carbonate [Renvela*] 2 tab PO TIDWM 01/02/22 Midodrine HCl 5 mg PO BID 07/19/22 Escitalopram [Lexapro*] 10 mg PO BEDTIME 12/24/22 Acetaminophen [Tylenol*] 650 mg PO Q4HP PRN 12/29/22 Calcitrol [Rocaltrol*] 0.5 mcg PO SEECOM 12/29/22 Furosemide [Lasix*] 80 mg PO DAILY 12/29/22 Pantoprazole [Protonix Tab*] 40 mg PO DAILY 12/29/22 Pramipexole [Mirapex*] 0.25 mg PO BEDTIME 12/29/22 Nepro Shake [Nepro*] 237 ml PO BID can 01/07/23 Apixaban [Eliquis *] 1 tab PO BID 03/24/23 predniSONE [Prednisone*] 20 mg PO DAILY #5 tab 03/25/23 Physician Discharge Instructions: Continue comfort care Diet: AHA Activity: Bedrest Followup: NONE,NONE [Primary Care Provider] -
--- NOTE | 2023-06-12 17:13 | EKG ---
Test Date: 2023-06-07 Test Time: 13:53:31 Ply Bander: ALP MEASUREMENT RESULTS: Intervals: Rate: 80 DC: QRSD: 136 QT: 422 QTc: 486 [place]: P: DC: QRS: -79 T: 90 INTERPRETIVE STATEMENTS: Atrial fibrillation with premature ventricular or aberrantly conducted complexes Left axis deviation Nonspecific intraventricular block Lateral infarct, age undetermined Abnormal ECG Compared to ECG 06/01/2023 12:20:01 Ventricular premature complex(es) now present Left-axis deviation now present Atrial flutter no longer present Right bundle-branch block no longer present Left anterior fascicular block no longer present Bifascicular block no longer present Myocardial infarct finding still present Electronically Signed On 06-12-23 16:57:52 DIRECTOR PHARMACY SERVICES by Lico Wilkins
== END 2023-06-10 17:41 | disposition hospice, inpatient (51) | DRG 871 ==
LOC: ER 11:37 → ERHOLD 14:08 → 3RD-ICU 06-08 04:37
PROVIDERS: ADMIT Hospitalist; ATTEND Hospitalist
PROC: 5A1D70Z Performance of Urinary Filtration, Intermittent, Less than 6 Hours Per Day (ICD-10-PCS; principal; 2023-06-07)
PROC: 3E033XZ Introduction of Vasopressor into Peripheral Vein, Percutaneous Approach (ICD-10-PCS; 2023-06-07)
DX: A41.9 Sepsis, unspecified organism (principal); E43 Unspecified severe protein-calorie malnutrition; N18.6 End stage renal disease; R65.21 Severe sepsis with septic shock; U07.1 COVID-19; I50.33 Acute on chronic diastolic (congestive) heart failure; G92.8 Other toxic encephalopathy; J96.01 Acute respiratory failure with hypoxia; I13.2 Hypertensive heart and chronic kidney disease with heart failure and with stage 5 chronic kidney disease, or end stage renal disease; N30.01 Acute cystitis with hematuria; E11.22 Type 2 diabetes mellitus with diabetic chronic kidney disease; E11.40 Type 2 diabetes mellitus with diabetic neuropathy, unspecified; D63.1 Anemia in chronic kidney disease; E78.5 Hyperlipidemia, unspecified; M06.9 Rheumatoid arthritis, unspecified; G47.30 Sleep apnea, unspecified; G47.00 Insomnia, unspecified; D69.6 Thrombocytopenia, unspecified; J44.9 Chronic obstructive pulmonary disease, unspecified; K21.9 Gastro-esophageal reflux disease without esophagitis; E88.09 Other disorders of plasma-protein metabolism, not elsewhere classified; J10.1 Influenza due to other identified influenza virus with other respiratory manifestations; L89.159 Pressure ulcer of sacral region, unspecified stage; I25.10 Atherosclerotic heart disease of native coronary artery without angina pectoris; Z66 Do not resuscitate; Z88.5 Allergy status to narcotic agent; Z51.5 Encounter for palliative care; Z79.01 Long term (current) use of anticoagulants; Z86.14 Personal history of Methicillin resistant Staphylococcus aureus infection; Z90.49 Acquired absence of other specified parts of digestive tract; Z68.22 Body mass index [BMI] 22.0-22.9, adult; Z79.52 Long term (current) use of systemic steroids; Z90.710 Acquired absence of both cervix and uterus; Z86.718 Personal history of other venous thrombosis and embolism; Z86.711 Personal history of pulmonary embolism; Z95.810 Presence of automatic (implantable) cardiac defibrillator; Z79.899 Other long term (current) drug therapy
CPT/HCPCS: 36415; 51702; 70450; 71045; 74018; 80048; 80053; 80202; 81001; 82947; 83605; 83735; 83880; 84100; 85025; 85610; 85730; 87040; 87804; 87811; 93005; 99285; C9113; J0696; J1100; J1170; J1644; J1815; J2185; J2405; J2920; J7030; J7040; J7050; P9047

== ENCOUNTER 2023-06-10 18:06 | Inpatient (IN) | payer OTHER ==
[2023-06-10] MEDS ORDERED: LORazepam 2 MG/ML VIAL IV PRN (18:12)
[2023-06-10] MEDS ORDERED: ACETAMINOPHEN 650MG/RECT SUPP PR PRN (18:14)
[2023-06-10] MEDS ORDERED: ONDANSETRON 4 MG/2 ML VIAL IV PRN (18:14)
[2023-06-10] MEDS ORDERED: BISACODYL 10 MG RECTAL SUPP PR PRN (18:14)
[2023-06-10 18:17] VITALS: BMI 23.9
[2023-06-10] MEDS ORDERED: SCOPOLAMINE HYDROBROMIDE PATCH TD SCH (21:00)
[2023-06-11 04:36] VITALS: O2SAT 100
[2023-06-11] MEDS: MORPHINE 2 MG/ML SYR IV PRN ×2 (09:43→15:09)
[2023-06-11 10:25] VITALS: BP 108/59; TEMP 97.2
== END 2023-06-11 17:30 | disposition expired | DRG 951 ==
LOC: 3RD-ICU 18:06 → 2ND 06-11 15:15
PROVIDERS: ADMIT Hospitalist; ATTEND Internal Medicine Hematology & Oncology
DX: Z51.5 Encounter for palliative care (principal)
CPT/HCPCS: J2270